=== PATIENT | female | born 1945 | race Caucasian/White ===

== ENCOUNTER 2022-12-16 08:38 | Outpatient (OUT) | payer MEDICARE, SELFPAY ==
[2022-12-16 09:37] LABS: INR 1.99; Prothrombin Time 20.3 sec (9.0-11.6)
[2023-01-15 07:46] LABS: INR 1.88; Prothrombin Time 19.2 sec (9.0-11.6)
== END 2022-12-16 08:39 ==
LOC: LAB 08:49
PROVIDERS: PCP Family Medicine; Visit Provider Family Medicine
DX: I48.0 Paroxysmal atrial fibrillation (principal); Z51.81 Encounter for therapeutic drug level monitoring; Z79.01 Long term (current) use of anticoagulants
CPT/HCPCS: 36415; 85610

== ENCOUNTER 2023-01-15 06:54 | Outpatient (OUT) | payer MEDICARE, SELFPAY ==
--- NOTE | 2023-01-15 07:09 | CT_ITS ---
[address] [address] Patient Name: KASEY SEN MRN: [id number] date: 1945 Sex: F Assigned Patient Location: LAB Current Patient Location: LAB Accession/Order Number: [id number] Exam Date: 01/15/2023 08:20 Report Date: 01/15/2023 10:14 At the request of: FAYE PEREZ Procedure: CT abdomen pelvis w con EXAMINATION: CT abdomen pelvis w con HISTORY: Lower Abdominal Pain R10.30, Nausea R11.0 , bordering COMPARISON: CT abdomen pelvis 09/21/2019 TECHNIQUE: Axial, Coronal, and Sagittal images were obtained without and/or with IV contrast as indicated by examination type. Dose reduction techniques were achieved by using automated exposure control and/or adjustment of mA and/or kV according to patient size and/or use of iterative reconstruction technique. FINDINGS: LUNG BASES: Surgical changes within right lung base. No acute infiltrates. LIVER: Fatty infiltration. No focal lesion. BILIARY: No dilatation or calcification. PANCREAS: No lesion, fluid collection, or abnormal duct dilatation. SPLEEN: No enlargement or focal lesion. ADRENALS: No mass or enlargement. KIDNEYS: 6 x 4 x 4 mm partially obstructing stone within mid right ureter with minimal hydronephrosis. 2 additional small nonobstructing stones within right kidney. Stable benign-appearing right renal cyst. Unremarkable left kidney and ureter. BOWEL/MESENTERY: Noninflamed diverticula involving distal descending and sigmoid colon. No visible mass, obstruction, or bowel wall thickening. AORTA/VASCULAR: No aneurysm or dissection. RETROPERITONEUM: No mass or adenopathy. LYMPH NODES: No adenopathy. URINARY BLADDER: No visible focal wall thickening, lesion, or calculus. PELVIC ORGANS: Hysterectomy. ABDOMINAL WALL: No mass or hernia. BONES: Marked degenerative disc disease L5-S1. No bony lesion or fracture. OTHER: Negative. IMPRESSION: 1.Partially obstructing 6 x 4 x 4 mm stone within mid right ureter. Additional nonobstructing right kidney stones. 2. Fatty infiltration of liver. 3.Sigmoid diverticulosis. Electronically authenticated by: MYRTLE KHOURY Date: 01/15/2023 10:14
[2023-01-15 07:18] LABS: Estimated GFR (African America >60 (>=60); Estimated GFR (Non-African Ame >60 (>=60)
[2023-01-15 09:55] LABS: Thyroid Stimulating Hormone 0.979 uIU/mL (0.358-3.740)
== END 2023-01-15 06:55 | disposition home or self-care (01) ==
LOC: LAB 06:54
PROVIDERS: PCP Family Medicine; Visit Provider Family Medicine
DX: R10.30 Lower abdominal pain, unspecified (principal); R11.0 Nausea; K57.30 Diverticulosis of large intestine without perforation or abscess without bleeding; R20.9 Unspecified disturbances of skin sensation; N18.31 Chronic kidney disease, stage 3a; I48.0 Paroxysmal atrial fibrillation; Z51.81 Encounter for therapeutic drug level monitoring; Z79.01 Long term (current) use of anticoagulants; N20.0 Calculus of kidney; N20.1 Calculus of ureter; K76.0 Fatty (change of) liver, not elsewhere classified
CPT/HCPCS: 36415; 74177; 82565; 84439; 84443; 85610; Q9967

== ENCOUNTER 2023-01-24 08:02 | Outpatient (OUT) | payer MEDICARE, SELFPAY ==
[2023-01-24 09:22] LABS: INR 2.21; Prothrombin Time 22.4 sec (9.0-11.6)
== END 2023-01-24 08:03 | disposition home or self-care (01) ==
LOC: LAB 08:05
PROVIDERS: PCP Family Medicine; Visit Provider Family Medicine
DX: I48.0 Paroxysmal atrial fibrillation (principal); Z51.81 Encounter for therapeutic drug level monitoring; Z79.01 Long term (current) use of anticoagulants
CPT/HCPCS: 36415; 85610

== ENCOUNTER 2023-01-31 12:47 | Outpatient (OUT) | payer MEDICARE, SELFPAY ==
--- NOTE | 2023-01-31 12:56 | XR_ITS ---
The [address] [address] Patient Name: KASEY SEN MRN: [id number] date: 1945 Sex: F Assigned Patient Location: [facility] Current Patient Location: [facility] Accession/Order Number: [id number] Exam Date: 01/31/2023 13:00 Report Date: 01/31/2023 13:23 At the request of: EUGENIA SHEPHERD Procedure: XR abdomen 1V EXAM: XR abdomen 1V HISTORY: Kidney stones N20.0 COMPARISON: None. TECHNIQUE: AP view of the abdomen. FINDINGS: Nonobstructive bowel gas pattern is noted. Punctate calculi in the right renal pelvis. Ureteral calculus is not visualized. The osseous structures are intact. XR/XR abdomen 1V IMPRESSION: Nonobstructive bowel gas pattern. Punctate right nephrolithiasis. Electronically authenticated by: VALENTE KENDRICK Date: 01/31/2023 13:23
== END 2023-01-31 12:48 | disposition home or self-care (01) ==
LOC: RAD 12:50
PROVIDERS: PCP Family Medicine; Visit Provider Urology
DX: N20.0 Calculus of kidney (principal)
CPT/HCPCS: 74018

== ENCOUNTER 2023-02-03 09:48 | Outpatient (OUT) | payer MEDICARE, SELFPAY ==
[2023-02-03 10:41] LABS: Estimated Average Glucose 154 mg/dL
== END 2023-02-03 09:49 | disposition home or self-care (01) ==
LOC: LAB 09:50
PROVIDERS: PCP Family Medicine; Visit Provider Family Medicine
DX: E11.22 Type 2 diabetes mellitus with diabetic chronic kidney disease (principal); N18.31 Chronic kidney disease, stage 3a; I48.0 Paroxysmal atrial fibrillation; Z79.01 Long term (current) use of anticoagulants; Z51.81 Encounter for therapeutic drug level monitoring
CPT/HCPCS: 36415; 83036

== ENCOUNTER 2023-02-11 08:58 | Outpatient (OUT) | payer MEDICARE, SELFPAY ==
--- NOTE | 2023-02-11 09:21 | XR_ITS ---
[address] [address] Patient Name: KASEY SEN MRN: [id number] date: 1945 Sex: F Assigned Patient Location: LAB Current Patient Location: LAB Accession/Order Number: [id number] Exam Date: 02/11/2023 09:35 Report Date: 02/11/2023 10:52 At the request of: EUGENIA SHEPHERD Procedure: XR IVP w KUB EXAMINATION: XR IVP w KUB HISTORY: Kidney Stones N20.0 COMPARISON: 01/15/2023 CT TECHNIQUE: After obtaining patient consent a flower arranger image was obtained followed by injection of 100cc of Omnipaque 300 IV contrast. Immediate nephrographic images were obtained. Corticomedullary and urographic phase images were obtained at 5, 10, 15 and 20 minutes. 15 minute oblique images were also obtained. FINDINGS: KIDNEY/URETER - RIGHT: No visible calcifications. KIDNEY/URETER - LEFT: No visible calcifications. PELVIS: No visible ureteral calcifications. Any visible calcifications favor phleboliths. NEPHROGRAPHIC PHASE: Normal, symmetric size, contour, and orientation. Normal and symmetric time of contrast uptake. CORTICOMEDULLARY: No mass. Moderate right hydroureteronephrosis UROGRAPHIC PHASE: Single bilateral ureters. Moderate right hydronephrosis extending to the inferior sacrum. Delayed washout of the right renal collecting system BLADDER: Normal size and contour. BOWEL: No abnormal dilation or deviation. BONES: No acute abnormality. Dextrocurvature with degenerative changes. OTHER: Negative. No abnormal gaseous collections. XR/XR IVP w KUB IMPRESSION: Moderate right hydroureteronephrosis extending to the inferior right sacrum. Previously identified distal ureterolith is not definitively seen on this exam Electronically authenticated by: BLANCA ZAVALA Date: 02/11/2023 10:52
[2023-02-11 09:22] LABS: Estimated GFR (African America >60 (>=60); Estimated GFR (Non-African Ame >60 (>=60)
== END 2023-02-11 08:59 | disposition home or self-care (01) ==
LOC: LAB 08:58
PROVIDERS: PCP Family Medicine; Visit Provider Urology
DX: N20.0 Calculus of kidney (principal)
CPT/HCPCS: 36415; 74400; 82565; 84520; Q9967

== ENCOUNTER 2023-02-18 10:51 | Outpatient (OUT) | payer MEDICARE, SELFPAY ==
[2023-02-18 11:33] LABS: INR 2.62; Prothrombin Time 26.3 sec (9.0-11.6)
== END 2023-02-18 10:52 | disposition home or self-care (01) ==
LOC: LAB 10:55
PROVIDERS: PCP Family Medicine; Visit Provider Family Medicine
DX: I48.0 Paroxysmal atrial fibrillation (principal); Z79.01 Long term (current) use of anticoagulants; Z51.81 Encounter for therapeutic drug level monitoring
CPT/HCPCS: 36415; 85610

== ENCOUNTER 2023-03-10 09:00 | Outpatient (OUT) | payer MEDICARE, SELFPAY ==
[2023-03-10 09:27] LABS: Basophils Absolute Auto 0.1 10^3/uL (0.0-0.1); Basophils Percent Auto 0.8 % (0.2-2.0); Eosinophils Absolute Auto 0.2 10^3/uL (0.0-0.7); Eosinophils Percent Auto 2.9 % (0.9-7.0); Hematocrit 38.9 % (36.0-48.0); Hemoglobin 12.5 g/dL (12.0-16.0); Immature Granulocytes Abs Auto 0.05 10^3/uL (0.00-0.03); Immature Granulocytes Pct Auto 0.8 % (0.0-0.5); Lymphocytes Absolute Auto 2.1 10^3/uL (1.2-3.8); Lymphocytes Percent Auto 31.5 % (20.5-60.0); Mean Corpuscular HGB Conc 32.1 g/dL (29.9-35.2); Mean Corpuscular Hemoglobin 30.8 pg (26.7-34.0); Mean Corpuscular Volume 95.8 fL (81.0-99.0); Mean Platelet Volume 8.9 fL (9.5-13.5); Monocytes Absolute Auto 0.4 10^3/uL (0.3-0.8); Monocytes Percent Auto 6.1 % (1.7-12.0); Neutrophils Absolute Auto 3.8 10^3/uL (1.4-6.5); Neutrophils Percent Auto 57.9 % (43.0-75.0); Platelet Count 264 10^3/uL (150-450); Red Blood Count 4.06 10^6/uL (4.20-5.40); White Blood Count 6.5 10^3/uL (4.0-11.0)
[2023-03-10 09:36] LABS: Alanine Aminotransferase 21 U/L (14-59); Albumin Globulin Ratio 1.2; Albumin Level 3.6 g/dL (3.4-5.0); Alkaline Phosphatase 51 U/L (46-116); Anion Gap 12.3; Aspartate Amino Transferase 11 U/L (15-37); BUN Creatinine Ratio 14.7; Bilirubin Total 0.3 mg/dL (0.2-1.0); Calcium 9.1 mg/dL (8.5-10.1); Carbon Dioxide 30.3 mmol/L (21.0-32.0); Chloride 104 mmol/L (98-107); Estimated GFR (African America >60 (>=60); Estimated GFR (Non-African Ame >60 (>=60); Globulin 3.1 g/dL; Glucose 135 mg/dL (74-106); Potassium 4.6 mmol/L (3.5-5.1); Sodium 142 mmol/L (136-145); Total Protein 6.7 g/dL (6.4-8.2)
[2023-03-10 10:09] LABS: Erythrocyte Sedimentation Rate 14 mm/hr (<=30)
== END 2023-03-10 09:01 | disposition home or self-care (01) ==
LOC: LAB 09:01
PROVIDERS: PCP Family Medicine; Visit Provider Internal Medicine Rheumatology
DX: L40.59 Other psoriatic arthropathy (principal); Z79.899 Other long term (current) drug therapy
CPT/HCPCS: 36415; 80053; 85025; 85652

== ENCOUNTER 2023-03-24 08:48 | Outpatient (OUT) | payer MEDICARE, SELFPAY ==
[2023-03-24 09:42] LABS: INR 2.22; Prothrombin Time 22.5 sec (9.0-11.6)
== END 2023-03-24 08:49 | disposition home or self-care (01) ==
LOC: LAB 08:50
PROVIDERS: PCP Family Medicine; Visit Provider Family Medicine
DX: I48.0 Paroxysmal atrial fibrillation (principal); Z79.01 Long term (current) use of anticoagulants; Z51.81 Encounter for therapeutic drug level monitoring
CPT/HCPCS: 36415; 85610

== ENCOUNTER 2023-04-22 11:02 | Outpatient (OUT) | payer MEDICARE, SELFPAY ==
[2023-04-22 11:45] LABS: INR 1.94; Prothrombin Time 19.8 sec (9.0-11.6)
== END 2023-04-22 11:03 | disposition home or self-care (01) ==
LOC: LAB 11:04
PROVIDERS: PCP Family Medicine; Visit Provider Family Medicine
DX: I48.0 Paroxysmal atrial fibrillation (principal); Z51.81 Encounter for therapeutic drug level monitoring; Z79.01 Long term (current) use of anticoagulants
CPT/HCPCS: 36415; 85610

== ENCOUNTER 2023-05-21 10:53 | Outpatient (OUT) | payer MEDICARE, SELFPAY ==
[2023-05-21 11:38] LABS: INR 2.35; Prothrombin Time 23.7 sec (9.0-11.6)
--- OUTSIDE RECORDS SUMMARY | 2023-07-01 13:54 | XMS_ITS | CCD ---
Author Name Unknown Address [address] [place] [address] Organization [facility] Care Team Providers Care Digital Campaign Specialist Name Role Phone Astrid Baker Unavailable CAYETANO, DR CRUM Consulting Unavailable MONTEIRO, DR CRUM Attending Unavailable MONTEIRO, DR CRUM Admitting Unavailable HEMEYER ., DR MCKINNEY Primary Care Unavailable HEMEYER ., DR MCKINNEY Consulting Unavailable HEMEYER ., DR MCKINNEY Admitting Unavailable HEMEYER ., DR MCKINNEY Attending Unavailable HEMEYER ., DR MCKINNEY Primary Care Unavailable MONTEIRO, DR CRUM Attending Unavailable CAYETANO, DR CRUM Admitting Unavailable HEMEYER ., DR MCKINNEY Primary Care Unavailable MONTEIRO, DR CRUM Consulting Unavailable HEMEYER ., DR MCKINNEY Primary Care Unavailable MONTEIRO, DR CRUM Consulting Unavailable CAYETANO, DR CRUM Attending Unavailable HEMEYER ., DR MCKINNEY Referring Unavailable MONTEIRO, DR CRUM Admitting Unavailable HEMEYER ., DR MCKINNEY Primary Care Unavailable HEMEYER ., DR MCKINNEY Consulting Unavailable HEMEYER ., DR MCKINNEY Attending Unavailable HEMEYER ., DR MCKINNEY Admitting Unavailable CAYETANO, DR CRUM Attending Unavailable CAYETANO, DR CRUM Admdiallo Unavailable WEST, DR BLANCA Haskins Consulting Unavailable HEMEYER ., DR MCKINNEY Primary Care Unavailable MONTEIRO, DR CRUM Consulting Unavailable CAYETANO, DR CRUM Consulting Unavailable CAYETANO, DR CRUM Attending Unavailable CAYETANO, DR CRUM Admitting Unavailable HEMEYER ., DR MCKINNEY Primary Care Unavailable MONTEIRO, DR CRUM Consulting Unavailable CAYETANO, DR CRUM Attending Unavailable MONTEIRO, DR CRUM Admitting Unavailable HEMEYER ., DR MCKINNEY Primary Care Unavailable HEMEYER ., DR MCKINNEY Consulting Unavailable HEMEYER ., DR MCKINNEY Attending Unavailable HEMEYER ., DR MCKINNEY Admitting Unavailable HEMEYER ., DR MCKINNEY Primary Care Unavailable HEMEYER ., DR MCKINNEY Consulting Unavailable HEMEYER ., DR MCKINNEY Attending Unavailable HEMEYER ., EDINA Primary Care Unavailable HEMEYER ., DR MCKINNEY Admitting Unavailable HEMEYER ., DR MCKINNEY Consulting Unavailable HEMEYER ., DR MCKINNEY Attending Unavailable HEMEYER ., EDINA Primary Care Unavailable HEMEYER ., DR MCKINNEY Admitting Unavailable HEMEYER ., DR MCKINNEY Consulting Unavailable HEMEYER ., DR MCKINNEY Admitting Unavailable HEMEYER ., DR MCKINNEY Attending Unavailable HEMEYER ., DR MCKINNEY Primary Care Unavailable HEMEYER ., DR MCKINNEY Consulting Unavailable HEMEYER ., DR MCKINNEY Admitting Unavailable HEMEYER ., DR MCKINNEY Attending Unavailable HEMEYER ., DR MCKINNEY Primary Care Unavailable HEMEYER, JAYME J Primary Care Physician Unavail able Williams SHEPHERD Attending Unavailable Williams SHEPHERD Attending Unavailable Williams SHEPHERD P Admitting Unavailable Williams SHEPHERD Attending Unavailable Williams SHEPHERD Attending Unavailable Williams SHEPHERD Attending Unavailable MD Jayme Perez Primary Care Provider MD Williams Shepherd Attending Provider [phone] Williams Shepherd Admitting Unavailable Williams Shepherd Attending Unavailable Jayme Perez Primary Care Unavailable Williams Shepherd Attending Unavailable Hemetomás, Jayme Hazel Primary Care Unavailable Vargas Shepherdory P Admitting Unavailable FELICIA THORNTON Attending Unavailable FELICIA THORNTON Attending Unavailable Allergies Allergy Classification Reported Allergen(s) Allergy Type Date of Onset Reaction(s) Facility (5 sources) Ciprofloxacin; 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: [ciprofloxacin] Drug Allergy 3 anaphylaxis, Unknown (qualifier value) [facility] (1 source) sulfaSALAzine Drug Allergy rash [place] [facility] Other (1 source) Ciprofloxacin Drug Allergy 3 [facility] (2 sources) Ketorolac; 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: [Toradol] Drug Allergy 3 [facility] (1 source) metroNIDAZOLE Drug Allergy 3 [facility] (1 source) NSAIDs Drug allergy (disorder) 3 [facility] (1 source) pioglitazone Drug Allergy 3 [facility] (1 source) Sulfonamides (Antibiotic) Drug allergy (disorder) 3 [facility] (6 sources) Ketorolac; 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: [ketorolac] Drug Allergy 3 Unknown (qualifier value), Nausea (finding) [facility] Comment on above: Severe (5 sources) Latex; 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: [Latex] Drug allergy 03-26-2023 Blister of skin AND/OR mucosa (finding) [facility] (3 sources) Non-steroidal anti-inflammatory agent; 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: [NSAIDs] Drug allergy Unknown (qualifier value) [facility] (4 sources) pioglitazone; 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: [pioglitazone] Drug Allergy 03-26-2023 Unknown (qualifier value) [facility] (3 sources) Sulfonamides (Antibiotic); 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: [sulfa drugs] Drug allergy Unknown (qualifier value) [facility] (2 sources) metroNIDAZOLE; 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: [metronidazole] Drug Allergy 03-26-2023 Redness of Skin [facility] (2 sources) Sulfonamides (Antibiotic); 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: [Sulfa (Sulfonamide Antibiotics)] Allergy to substance 03-26-2023 Rash [facility] (2 sources) NSAIDS (Non-Steroidal Anti-Inflamma; 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: [NSAIDS (Non-Steroidal Anti-Inflamma] Allergy to substance 03-26-2023 Anaphylaxis [facility] (1 source) Ciprofloxacin Drug Allergy 03-26-2023 [facility] (1 source) Ketorolac Drug Allergy 03-26-2023 [facility] (1 source) pioglitazone Drug Allergy 03-26-2023 [facility] Medications Current Medications Medication Drug Class(es) Dates Sig (Normalized) Sig (Original) acarbose 100 mg oral tablet (4 sources) alpha-Glucosidase Inhibitor Start: 03-26-2023 take 1 tablet by mouth three times daily Acarbose (Precose) 100 mg Tablet Active 100 MG PO Three times daily March 25, 2023 11:00pm Start: 08-17-2019 acarbose Oral, TID, Refills(s) 0 Start Date: 08/17/19 Status: Ordered acetaminophen 325 mg oral ta blet (3 sources) Start: 03-26-2023 Acetaminophen (Tylenol) 325 mg Tablet Active 1000 MG PO Twice daily March 25, 2023 11:00pm Start: 02-03-2023 take 1 mg by mouth e very six hours Tylenol Extra Strength 500 mg oral tablet mg tab(s), Oral, q6hr Start Date: 02/03/23 Status: Ordered [id number] 200 actuat albuterol 0.09 mg/actuat metered dose inhaler (1 source) beta2-Adrenergic Agonist Start: 05-21-2021 aspirin 81 mg oral tablet (2 sources) Platelet Aggregation Inhibitor, Nonsteroidal Anti-inflammatory Drug Start: 08-17-2019 take 1 mg by mouth once daily aspirin 81 mg oral tablet mg tab(s), Oral, Daily, Refills(s) 0 Start Date: 08/17/19 Status: Ordered azithromycin 250 mg oral tablet (1 source) Macrolide Antimicrobial Start: 05-21-2021 calcium citrate 950 mg oral tablet (3 sources) Start: 03-26-2023 take 200 mg by mouth three times daily Calcium Citrate Active 200 MG PO Three times daily March 25, 2023 11:00pm Start: 08-17-2019 calcium citrat e Oral, BID, Refills(s) 0 Start Date: 08/17/19 Status: Ordered cholecalciferol 0.125 mg oral tablet (1 source) Vitamin D Start: 03-26-2023 take 1 tablet by mouth once daily Cholecalciferol (Vitamin D3) (Vitamin D3) 125 mcg (5,000 unit) Tablet Active 5000 UNIT PO every day at noon March 25, 2023 11:00pm cinnamon bark 500 mg oral capsule (1 source) Start: 03-26-2023 take 1 capsule by mouth twice daily Cinnamon Bark (Cinnamon) 500 mg Capsule Active 1000 MG PO Twice daily March 25, 2023 11:00pm Cinnamon Preparation (2 sources) Non-Standardized Food Allergenic Extract Start: 09-19-2020 take 1 mg by mouth twice daily cinnamon mg, Oral, BID Start Date: 09/19/20 Status: Ordered Cyanocobalamin-Liver Extract (Vitamin [id number]) Tablet (1 source) Start: 03-26-2023 take 1 tablet by mouth once daily Cyanocobalamin-Liver Extract (Vitamin Y45-Qbare) Tablet Active 1 TAB PO every day at noon March 25, 2023 11:00pm esomeprazole 20 mg oral tablet (3 sources) Proton Pump Inhibitor Start: 03-26-2023 take 20 mg by mouth once daily Esomeprazole Magnesium Active 20 MG PO every day at noon March 25, 2023 11:00pm Start: 08-17-2019 Nexium Oral, D aily, Refills(s) 0 Start Date: 08/17/19 Status: Ordered ferrous sulfate 134 mg oral tablet (1 source) Start: 03-26-2023 take 30 mg by mouth once Ferrous Sulfate Active 30 MG PO every Friday, , Friday, and Saturday March 25, 2023 11:00pm 4 ml golimumab 12.5 mg/ml injection (3 sources) Tumor Necrosis Factor Sergey Start: 03-26-2023 Golimumab (Simponi Aria) 12.5 mg/mL Solution Active 12.5 MG IV EVERY 8 WEEKS March 25, 2023 11:00pm may 13 Start: 08-20-2019 Simponi Aria m g/kg, IV, q4wk, Refills(s) 0 Start Date: 08/20/19 Status: Ordered Insulin Glargine (1 source) Insulin Analog metFORMIN hydrochloride 1000 mg oral tablet (4 sources) Biguanide Start: 03-26-2023 take 1000 mg by mouth twice daily Metformin Active 1000 MG PO Twice daily March 25, 2023 11:00pm Start: 08-17-2019 metformin Oral , Refills(s) 0 Start Date: 08/17/19 Status: Ordered methotrexate 2.5 mg/ml oral solution (4 sources) Folate Analog Metabolic Inhibitor Start: 03-26-2023 take 1.5 mg by mouth every week Methotrexate Active 1.5 MG PO every week March 25, 2023 11:00pm Start: 08-17-2019 methotrexate R efills(s) 0 Start Date: 08/17/19 Status: Ordered Misc Medication (2 sources) Start: 09-19-2020 Misc Medicatio n ironchlate Start Date: 09/19/20 Status: Ordered Multi Vitamins oral tablet (2 sources) Start: 09-19-2020 Multi Vitamins oral tablet Oral, Daily, Refill(s) 0 Start Date: 09/19/20 Status: Ordered predniSONE 2.5 mg oral tablet (4 sources) Start: 03-26-2023 take 2.5 mg by mouth once daily at bedtime Prednisone Active 2.5 MG PO Daily at bedtime March 25, 2023 11:00pm Start: 08-17-2019 predniSONE Ora l, Daily, Refills(s) 0 Start Date: 08/17/19 Status: Ordered vitamin B12 (2 sources) Vitamin B12 Start: 08-17-2019 Vitamin B12 Refills(s) 0 Start Date: 08/17/19 Status: Ordered Vitamin D3 (2 sources) Start: 08-17-2019 Vitamin D3 Alexandra ly, Refills(s) 0 Start Date: 08/17/19 Status: Ordered warfarin sodium 4 mg oral tablet (3 sources) Vitamin K Antagonist Start: 03-26-2023 take 4 mg by mouth once daily at bedtime Warfarin Active 4 MG PO Daily at bedtime March 25, 2023 11:00pm Start: 02-03-2023 warfarin Oral, Daily Start Date: 02/03/23 Status: Ordered Zinc Sulfate-Vitamin C (Vitamin C Plus Zinc) 200-100 mg Tablet (1 source) Start: 03-26-2023 take 1 tablet by mouth once daily Zinc Sulfate-Vitamin C (Vitamin C Plus Zinc) 200-100 mg Tablet Active 1 TAB PO every day at noon March 25, 2023 11:00pm Problems Active Problems Problem Classification Problem Date Documented Da te Episodic/Chronic Abdominal pain (2 sources) Abdominal pain 09-21-2019 Episodic Anxiety disorders (2 sources) Anxiety 08-17-2019 Chronic Calculus of urinary tract (5 sources) Kidney stone; 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: [Calculus of kidney] Onset: 03-20-2023 Episodic Cancer of uterus (2 sources) History of malignant neoplasm of uterine body 08-17-2019 Episodic Cardiac dysrhythmias (5 sources) 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; 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: [PAROXYSMAL ATRIAL FIBRILLATION] Onset: 10-14-2022 Chronic Congestive heart failure; nonhypertensive (1 source) Chronic diastolic (congestive) heart failure; 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: [CHRONIC DIASTOLIC HEART FAILURE] Onset: 09-05-2022 Chronic Diabetes mellitus with complications (4 sources) Type 2 diabetes mellitus with diabetic chronic kidney disease; 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: [TYPE 2 DM W/DIABETIC CKD] Onset: 08-09-2022 Chronic Diabetes mellitus without complication (2 sources) Diabetes mellitus 08-17-2019 Chronic Genitourinary symptoms and ill-defined conditions (4 sources) Increased frequency of urination; 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: [Nocturia] 09-19-2020 Episodic Heart valve disorders (1 source) Nonrheumatic aortic (valve) stenosis; 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: [NONRHEUMATIC AORTIC VALVE STENOSIS] Onset: 09-05-2022 Chronic Heart valve disorders (3 sources) Cardiac murmur, unspecified; 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: [Heart murmur] Onset: 09-05-2022 08-17-2019 Episodic Mood disorders (2 sources) Depressive disorder 08-17-2019 Chronic Other aftercare (1 source) 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; 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: [[facility] CURRNT USE ANTICOAGULANTS] Onset: 12-11-2022 Episodic Other aftercare (5 sources) Encounter for therapeutic drug level monitoring; 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: [ENC THERAPEUTC DRUG LEVL MONITORING] Onset: 10-18-2022 Episodic Other aftercare (1 source) Other assisted (current) drug therapy; 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: [OTH CABLE ARMORER CURRENT DRUG THERAPY] Onset: 10-31-2022 Episodic Other and ill-defined heart disease (4 sources) Cardiomegaly; 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: [CARDIOMEGALY] Onset: 09-02-2022 Chronic Other inflammatory condition of skin (5 sources) Other psoriatic arthropathy; 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: [OTHER PSORIATIC ARTHROPATHY] Onset: 09-25-2022 Chronic Other nutritional; endocrine; and metabolic disorders (2 sources) Body mass index 25-29 - overweight 09-18-2021 Episodic Residual codes; unclassified (2 sources) H/O: anticoagulant therapy 09-21-2019 Episodic Screening and history of mental health and substance abuse codes (2 sources) Ex-smoker 09-21-2019 Episodic Unclassified (2 sources) Drug therapy finding 08-20-2019 Unclassified (1 source) Encounter for preprocedural laboratory examination; 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: [Encounter for preprocedural laboratory examination] Onset: 03-26-2023 Past or Other Problems Problem Classification Problem Date Documented Da te Episodic/Chronic Immunizations and screening for infectious disease (1 source) Contact with and (suspected) exposure to other viral communicable diseases Onset: 05-21-2021 Resolved: 05-21-2021 Episodic Other aftercare (1 source) [facility] (current) use of oral hypoglycemic drugs; 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: [[facility] USE ORAL HYPOGLYCEMIC DX] Onset: 08-12-2022 Episodic Other aftercare (1 source) 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; 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: [[facility] CURRENT USE OF INSULIN] Onset: 02-13-2022 Episodic Other connective tissue disease (4 sources) Pain in left foot; 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: [PAIN IN LEFT FOOT] Onset: 02-20-2022 Episodic Pneumonia (except that caused by tuberculosis or sexually transmitted disease) (1 source) Pneumonia, unspecified organism Onset: 05-21-2021 Resolved: 05-21-2021 Episodic Viral infection (1 source) COVID-19 Onset: 05-21-2021 Resolved: 05-21-2021 Results Test Name Value Interpretation Reference Range Facil ity Calculus Analysison 03-27-20 23 Calcium oxalate dihydrate Infrared spectroscopy (Stone) [Mass fraction] 100 % Invalid Interpretation Code [facility] Comment on above: Performed By: #### 1 [id number] #### [facility] [address] [place] [address] Color (Stone) Roper Invalid Interpretation Code [facility] Comment on above: Performed By: #### 1 [id number] #### [facility] [address] [place] [address] Composition Comment Invalid Interpretation Code [facility] Comment on above: Result Comment: Perc entage (Represents the % composition) Performed By: #### 1 [id number] #### [facility] [address] [place] [address] Disclaimer: Comment Invalid Interpretation Code [facility] Comment on above: Result Comment: This test was developed and its performance characteristics determined by [facility]. It has not been cleared or approved by the Food and Drug Administration. Performed at: [address] [id number] PhD Silvestre Esquivel Performed By: #### 1 [id number] #### [facility] [address] [place] [address] Laboratory comment Noam (Report) Comment Invalid Interpretation Code [facility] Comment on above: Result Comment: Coco goode questions regarding Calculi Analysis contact [facility] at: [phone]. Performed By: #### 1 [id number] #### [facility] [address] [place] [address] Please Note: Comment Invalid Interpretation Code [facility] Comment on above: Result Comment: Calc javier report will follow via computer, mail or metal leaf layer delivery. Performed By: #### 1 [id number] #### [facility] [address] [place] [address] Size (Stone) [Entitic vol] 6x4 Invalid Interpretati on Code [facility] Comment on above: Result Comment: Sing le piece received. Performed By: #### 1 [id number] #### [facility] [address] [id number] Specimen source subject Nom Comment Invalid Interpretation Code [facility] Comment on above: Result Comment: Not provided Performed By: #### 1 [id number] #### [facility] [address] [place] [address] Stone Photo Comment Invalid Interpretation Code [facility] Comment on above: Result Comment: Phot ograph will follow under a separate cover Performed By: #### 1 [id number] #### [facility] [address] [place] [address] Weight (Stone) 49 mg Invalid Interpretation Code [facility] Comment on above: Performed By: #### 1 [id number] #### [facility] [address] [place] [address] Lab Reportson 03-27-2023 Lab Reports [id number] :127 Normal [facility] Activated partial thrombopla stin time (aPTT) in platelet poor plasma by coagulation aOrdered By: Williams Shepherd on 03-26-2023 aPTT Coag (PPP) [Time] 35.9 s 25.1-36.5 [facility] Comment on above: A hematocrit value g reater than 55% may lead to inaccurate results in coagulation testing. Patients having hematocrit values >55% require a special collection tube for coagulation studies. Please contact the laboratory at [phone] for redraw instructions. Basic Metabolic Panelon 03-14 Anion gap [Moles/Vol] 13.0 mmol/L Normal 6.0-15.0 [facility] Comment on above: Performed By: #### P T, BMP, CBC, PTT #### [facility] [address] [id number] [facility] Calcium [Mass/Vol] 10.0 mg/dL Normal 8.6-10.3 [facility] Comment on above: Result Comment: PERF ORMED BY: [place] [address] PATHOLOGIST COIL REWIND MACHINE OPERATOR BERNIE GRAYSON M.D. Performed By: #### P T, BMP, CBC, PTT #### [facility] [address] [place] [address] [place] Chloride [Moles/Vol] 104 mmol/L Normal 98-107 [facility] Comment on above: Performed By: #### P T, BMP, CBC, PTT #### [facility] [address] [place] [address] [place] CO2 [Moles/Vol] 30.0 mmol/L Normal 21.0-31.0 [facility] Comment on above: Performed By: #### P T, BMP, CBC, PTT #### [facility] [address] [place] [address] [place] Creatinine [Mass/Vol] 0.85 mg/dL Normal 0.60-1.20 [facility] Comment on above: Performed By: #### P T, BMP, CBC, PTT #### [facility] [address] [place] [address] [place] GFR/1.73 sq M.predicted MDRD (S/P/Bld) [Vol rate/Area] mL/min/{1.73_m2} Normal [facility] Comment on above: Performed By: #### P T, BMP, CBC, PTT #### [facility] [address] [place] [address] [place] Glucose [Mass/Vol] 111 mg/dL High 70-100 [facility] Comment on above: Result Comment: [place] Glucose Reference Range is dependent on time and content of last meal. Glucose of more than 200 mg/dL in a nonstressed, ambulatory subject supports the diagnosis of Diabetes Mellitus. ADA recommended reference range Performed By: #### P T, BMP, CBC, PTT #### [facility] [address] Potassium [Moles/Vol] 5.0 mmol/L Normal 3.5-5.1 [facility] Comment on above: Performed By: #### P T, BMP, CBC, PTT #### [facility] [address] Sodium [Moles/Vol] 142 mmol/L Normal 136-145 [facility] Comment on above: Performed By: #### P T, BMP, CBC, PTT #### [facility] [address] Urea nitrogen [Mass/Vol] 12 mg/dL Normal 7-25 [facility] Comment on above: Performed By: #### P T, BMP, CBC, PTT #### [facility] [address] [place] [address] [place] Basophils Auto (Bld) [#/Vol] Ordered By: Williams Shepherd on 03-26-2023 Basophils (Bld) [#/Vol] 0.0 10*3/uL 0.0-0.2 [facility] Basophils/100 WBC Auto (Bld) Ordered By: Williams Shepherd on 03-26-2023 Basophils/100 WBC (Bld) 0.8 % . F [facility] Calcium [Mass/volume] in Ser um or PlasmaOrdered By: Williams Shepherd on 03-26-2023 Calcium [Mass/Vol] 10.0 mg/dL 8.6-10.3 [facility] Carbon dioxide, total [Moles /volume] in Serum or PlasmaOrdered By: Williams Shepherd on 03-26-2023 CO2 [Moles/Vol] 30.0 mmol/L 21.0-31.0 [facility] Chloride [Moles/volume] in S fartun or PlasmaOrdered By: Williams Shepherd on 03-26-2023 Chloride [Moles/Vol] 104 mmol/L 98-107 [facility] Complete Blood Count Auto Di ffon 03-26-2023 Basophils (Bld) [#/Vol] 0.0 10*3/uL Normal 0.0-0.2 [facility] Comment on above: Result Comment: PERF ORMED BY: [place] [address] PATHOLOGIST COIL REWIND MACHINE OPERATOR BERNIE GRAYSON M.D. Performed By: #### P T, BMP, CBC, PTT #### [facility] [address] Basophils/100 WBC (Bld) 0.8 % Normal . F [facility] Comment on above: Performed By: #### P T, BMP, CBC, PTT #### [facility] [address] [place] [address] Eosinophils (Bld) [#/Vol] 0.3 10*3/uL Normal 0.0-0.45 [facility] Comment on above: Performed By: #### P T, BMP, CBC, PTT #### [facility] [address] [place] [address] Eosinophils/100 WBC (Bld) 4.3 % Normal . [facility] Comment on above: Performed By: #### P T, BMP, CBC, PTT #### [facility] [address] [place] [address] Erythrocyte distribution wid th (RBC) [Ratio] 14.8 % Normal 11.9-15.3 [facility] Comment on above: Performed By: #### P T, BMP, CBC, PTT #### [facility] [address] [place] [address] Hematocrit (Bld) [Volume fraction] 40.3 % Normal 34.0-46.4 [facility] Comment on above: Performed By: #### P T, BMP, CBC, PTT #### [facility] [address] [place] [address] Hemoglobin (Bld) [Mass/Vol] 13.3 g/dL Normal 11.8-15. 4 [facility] Comment on above: Performed By: #### P T, BMP, CBC, PTT #### [address] Lymphocytes (Bld) [#/Vol] 2.2 10*3/uL Normal 1.00-4.8 [facility] Comment on above: Performed By: #### P T, BMP, CBC, PTT #### [address] Lymphocytes/100 WBC (Bld) 36.9 % Normal . [facility] Comment on above: Performed By: #### P T, BMP, CBC, PTT #### [address] MCH (RBC) [Entitic mass] 31.1 pg Normal 24.7-34.3 [facility] Comment on above: Performed By: #### P T, BMP, CBC, PTT #### [address] MCV (RBC) [Entitic vol] 94.4 fL Normal 80-100 [facility] Comment on above: Performed By: #### P T, BMP, CBC, PTT #### [address] Mean Corpuscular HGB Conc 32.9 g/dL Normal 32.0-35.0 [facility] Comment on above: Performed By: #### P T, BMP, CBC, PTT #### [address] Monocytes (Bld) [#/Vol] 0.5 10*3/uL Normal 0.0-0.8 [facility] Comment on above: Performed By: #### P T, BMP, CBC, PTT #### [address] Monocytes/100 WBC (Bld) 7.8 % Normal . F [facility] Comment on above: Performed By: #### P T, BMP, CBC, PTT #### [address] Neutrophils (Bld) [#/Vol] 3.0 10*3/uL Normal 1.8-7.7 [facility] Comment on above: Performed By: #### P T, BMP, CBC, PTT #### [facility] [address] Neutrophils/100 WBC (Bld) 50.2 % Normal . [facility] Comment on above: Performed By: #### P T, BMP, CBC, PTT #### [facility] [address] NRBC% 0.3 /100{WBC} Normal 0-0.5 [facility] Comment on above: Performed By: #### P T, BMP, CBC, PTT #### [address] Platelet mean volume (Bld) [Entitic vol] 7.1 fL Normal 6.3-10.7 [facility] Comment on above: Performed By: #### P T, BMP, CBC, PTT #### [address] Platelets (Bld) [#/Vol] 363 10*3/uL Normal 150-450 [facility] Comment on above: Performed By: #### P T, BMP, CBC, PTT #### [address] RBC (Bld) [#/Vol] 4.27 10*6/uL Normal 3.60-5.00 [facility] Comment on above: Performed By: #### P T, BMP, CBC, PTT #### [address] WBC (Bld) [#/Vol] 5.9 10*3/uL Normal 3.8-11.6 [facility] Comment on above: Performed By: #### P T, BMP, CBC, PTT #### [address] Creatinine [Mass/volume] in Serum or PlasmaOrdered By: Williams Shepherd on 03-26-2023 Creatinine [Mass/Vol] 0.85 mg/dL 0.60-1.20 [facility] ECG 12 lead ECGon 03-26-2023 ECG 12 lead ECG [facility] [address] [place] [id number] Electrocardiograph Report Signed Patient: Wilda Sen MR#: [id number] 8 : 1945 Acct:[id number] Age/Sex: 77 / F ADM Date: 03/26/23 Loc: Room: Type: [facility] Attending Dr: Williams Shepherd MD Ordering Provider: Williams Shepherd MD Date of Service: 03/26/23 ECG/ECG 12 lead ECG: PST Copies to: Test Reason : Blood Pressure : / mmHG Vent. Rate : 082 BPM Atrial Rate : 082 BPM P-R Int : 148 ms QRS Dur : 068 ms QT Int : 344 ms P-R-T Axes : 037 -34 056 degrees QTc Int : 401 ms Normal sinus rhythm with occasional ectopic atrial beats Left axis deviation Abnormal ECG No previous ECGs available Confirmed by MARU WHITEHEAD DO ([id number]) on 03/26/2023 7:07:56 PM Referred By: CORA Electronically Signed By:MARU WHITEHEAD DO Transcribed By: CHAD Signed By Maru Whitehead DO 03/26 190 Normal [facility] Eosinophils Auto (Bld) [#/Vo l]Ordered By: Williams Shepherd on 03-26-2023 Eosinophils (Bld) [#/Vol] 0.3 10*3/uL 0.0-0.45 [facility] Eosinophils/100 WBC Auto (Bl d)Ordered By: Williams Shepherd on 03-26-2023 Eosinophils/100 WBC (Bld) 4.3 % . [facility] Erythrocyte distribution wid th Auto (RBC) [Ratio]Ordered By: Williams Shepherd on 03-26-2023 Erythrocyte distribution wid th (RBC) [Ratio] 14.8 % 11.9-15.3 [facility] Glucose [Mass/volume] in Ser um or PlasmaOrdered By: Williams Shepherd on 03-26-2023 Glucose [Mass/Vol] 111 mg/dL 70-100 [facility] Comment on above: ADA recommended refe rence rangeRandom Glucose Reference Range is dependent on time and content of last meal. Glucose of more than 200 mg/dL in a nonstressed, ambulatory subject supports the diagnosis of Diabetes Mellitus. Hematocrit Auto (Bld) [Volum e fraction]Ordered By: Williams Shepherd on 03-26-2023 Hematocrit (Bld) [Volume fraction] 40.3 % 3 4.0-46.4 [facility] Hemoglobin [Mass/volume] in BloodOrdered By: Williams Shepherd on 03-26-2023 Hemoglobin (Bld) [Mass/Vol] 13.3 g/dL 11.8-15. 4 [facility] INR in Platelet poor plasma by Coagulation assayOrdered By: Williams Shepherd on 03-26-2023 INR Coag (PPP) [Relative time] 2.3 {INR} [facility] Comment on above: INR Therapeutic Rang e A) Pre- and Peroperative OAT started two weeks before surgery. NOT HIP SURGERY: 1.5 - 2.5 HIP SURGERY: 2 - 3B) Primary and secondary prevention of venous THROMBOSIS: 2 - 3C) Active venous thrombosis, pulmonary embolismand prevention of recurrent venous thrombosis: 2 - 3D) Prevention of arterial thromboembolismincluding patients with mechanical heart valves: 3 - 4.5 Leukocytes [#/volume] correc she for nucleated erythrocytes in Blood by Automated counOrdered By: Williams Shepherd on 03-26-2023 WBC corrected for nucl RBC A uto (Bld) [#/Vol] 5.9 10*3/uL 3.8-11.6 [facility] Lymphocytes Auto (Bld) [#/Vo l]Ordered By: Williams Shepherd on 03-26-2023 Lymphocytes (Bld) [#/Vol] 2.2 10*3/uL 1.00-4.8 [facility] Lymphocytes/100 WBC Auto (Bl d)Ordered By: Williams Shepherd on 03-26-2023 Lymphocytes/100 WBC (Bld) 36.9 % . [facility] MCH Auto (RBC) [Entitic mass ]Ordered By: Williams Shepherd on 03-26-2023 MCH (RBC) [Entitic mass] 31.1 pg 24.7-34.3 [facility] MCHC Auto (RBC) [Mass/Vol]Or dered By: Williams Shepherd on 03-26-2023 MCHC (RBC) [Mass/Vol] 32.9 g/dL 32.0-35.0 [facility] MCV Auto (RBC) [Entitic vol] Ordered By: Williams Shepherd on 03-26-2023 MCV (RBC) [Entitic vol] 94.4 fL 80-100 [facility] Monocytes Auto (Bld) [#/Vol] Ordered By: Williams Shepherd on 03-26-2023 Monocytes (Bld) [#/Vol] 0.5 10*3/uL 0.0-0.8 [facility] Monocytes/100 WBC Auto (Bld) Ordered By: Williams Shepherd on 03-26-2023 Monocytes/100 WBC (Bld) 7.8 % . F [facility] Neutrophils Auto (Bld) [#/Vo l]Ordered By: Williams Shepherd on 03-26-2023 Neutrophils (Bld) [#/Vol] 3.0 10*3/uL 1.8-7.7 [facility] Neutrophils/100 WBC Auto (Bl d)Ordered By: Williams Shepherd on 03-26-2023 Neutrophils/100 WBC (Bld) 50.2 % . [facility] No Panel InformationOrdered By: Williams Shepherd on 03-26-2023 Estimated GFR (CKD-EPI) > 60.0 mL/Min [facility] Creatinine Clearanc e (Chem N/A [facility] Nucleated erythrocytes [Pres ence] in Blood by Automated countOrdered By: Williams Shepherd on 03-26-2023 Nucleated RBC Auto Ql (Bld) 0.3 /100{WBC} 0-0.5 [facility] Partial Thromboplastin Timeo n 03-26-2023 aPTT Coag (Bld) [Time] 35.9 s Normal 25.1-36.5 [facility] Comment on above: Result Comment: A he matocrit value greater than 55% may lead to inaccurate results in coagulation testing. Patients having hematocrit values >55% require a special collection tube for coagulation studies. Please contact the laboratory at [phone] for redraw instructions. PERFORMED BY: [place] [id number] PATHOLOGIST COIL REWIND MACHINE OPERATOR BERNIE GRAYSON M.D. Performed By: #### P T, BMP, CBC, PTT #### [facility] [address] Platelet mean volume Auto (B ld) [Entitic vol]Ordered By: Williams Shepherd on 03-26-2023 Platelet mean volume (Bld) [Entitic vol] 7.1 fL 6.3-10.7 [facility] Platelets Auto (Bld) [#/Vol] Ordered By: Williams Shepherd on 03-26-2023 Platelets (Bld) [#/Vol] 363 10*3/uL 150-450 [facility] Potassium [Moles/volume] in Serum or PlasmaOrdered By: Williams Shepherd on 03-26-2023 Potassium [Moles/Vol] 5.0 mmol/L 3.5-5.1 [facility] Prothrombin Time INRon 03-26 INR Coag (PPP) [Relative time] 2.3 {INR} Normal [facility] Comment on above: Result Comment: INR Therapeutic Range A) Pre- and Peroperative OAT started two weeks before surgery. NOT HIP SURGERY: 1.5 - 2.5 HIP SURGERY: 2 - 3 B) Primary and secondary prevention of venous THROMBOSIS: 2 - 3 C) Active venous thrombosis, pulmonary embolism and prevention of recurrent venous thrombosis: 2 - 3 D) Prevention of arterial thromboembolism including patients with mechanical heart valves: 3 - 4.5 Performed By: #### P T, BMP, CBC, PTT #### [facility] [address] [place], [place] [id number] [facility] PT Coag (PPP) [Time] 26.6 s High 9.0-12.9 [facility] Comment on above: Result Comment: A he matocrit value greater than 55% may lead to inaccurate results in coagulation testing. Patients having hematocrit values >55% require a special collection tube for coagulation studies. Please contact the laboratory at [phone] for redraw instructions. Performed By: #### P T, BMP, CBC, PTT #### [facility] [address] [place], [place] [id number] [facility] Prothrombin time (PT)Ordered By: Williams Shepherd on 03-26-2023 PT Coag (PPP) [Time] 26.6 s 9.0-12.9 [facility] Comment on above: A hematocrit value g reater than 55% may lead to inaccurate results in coagulation testing. Patients having hematocrit values >55% require a special collection tube for coagulation studies. Please contact the laboratory at [phone] for redraw instructions. RBC Auto (Bld) [#/Vol]Ordere d By: Williams Shepherd on 03-26-2023 RBC (Bld) [#/Vol] 4.27 10*6/uL 3.60-5.00 [facility] Serum or plasma anion gap de terminationOrdered By: Williams Shepherd on 03-26-2023 Anion gap [Moles/Vol] 13.0 mmol/L 6.0-15.0 [facility] Sodium [Moles/volume] in Ser um or PlasmaOrdered By: Williams Shepherd on 03-26-2023 Sodium [Moles/Vol] 142 mmol/L 136-145 [facility] Urea nitrogen [Mass/volume] in Serum or PlasmaOrdered By: Williams Shepherd on 03-26-2023 Urea nitrogen [Mass/Vol] 12 mg/dL 7-25 [facility] WBC Auto (Bld) [#/Vol]Ordere d By: Williams Shepherd on 03-26-2023 WBC (Bld) [#/Vol] 5.9 10*3/uL 3.8-11.6 [facility] Consultation Noteon 03-17-20 Consultation Note [id number]:127 Normal [facility] Lab Reportson 02-12-2023 Lab Reports [id number] D:127 [facility] RAD - MISCon 02-12-2023 RAD - MISC [id number] :127 Normal [facility] RAD - CT Reporton 02-05-2023 RAD - CT Report [id number]:127 Normal [facility] RAD - MISCon 02-05-2023 RAD - MISC [id number] :127 Normal [facility] Ambulatory Visit Summaryon 0 02-03-2023 Ambulatory Visit Summary WILDA SEN :1945 Visit Date:02/03/2023 Ambulatory Visit Instructions Your Diagnosis Kidney stones Tests Performed XR Abdomen 1 View -- Results Pending -- Please visit your patient portal for your results or contact your primary care physician. Your Care Team Attending Physician - CORA AGUIAR, Williams Venegas Primary Care Physician - CHRIS AGUIAR, JAYME Hazel This Is Your Medications List Contact prescribing physician if questions or concerns Non-Formulary Medication (Misc Medication) acarbose acetaminophen (Tylenol Extra Strength 500 mg oral tablet) aspirin (aspirin 81 mg oral tablet) calcium citrate cholecalciferol (Vitamin D3) cinnamon cyanocobalamin (Vitamin B12) esomeprazole (Nexium) golimumab (Simponi Aria) metformin methotrexate multivitamin (Multi Vitamins oral tablet) predniSONE warfarin Procedures Performed ESWL - Extracorporeal shockwave lithotripsy for renal calculus (08/26/2019), Cystoscopic laser lithotripsy of ureteric calculus (04/12/2016), Cystoscopic removal of ureteric stent (03/28/2016), ESWL of kidney (02/15/2016), Endoscopic retrograde pyelogram (01/16/2016), ESWL of kidney (06/29/2013), Cystoscopic removal of ureteric stent (09/10/2010), ESWL of kidney (08/29/2010), Cystoscopic insertion of ureteric stent (08/23/2010), Endoscopic retrograde pyelogram (03/02/2008), Cystoscopic ureteroneocystostomy with insertion of ureteral stent (10/16/2004). Discharge Vitals Heart Rate (Peripheral) 80 Blood Pressure 115/56 Height 160 cm Height 63 in Weight 70.0 kg Weight 154 lb BMI 27.34 What to do next Scheduled Follow-Up Appointments Friday 10:45 AM EST With: CORA AGUIAR, Williams Venegas Where: [facility] Patient Educationon 02-04-20 Patient Education Urology Kidney Stones Kidney stones are solid, rock-like deposits that form inside of the kidneys. The kidneys are a pair of organs that make urine. A kidney stone may form in a kidney and move into other parts of the urinary tract, including the tubes that connect the kidneys to the bladder (ureters), the bladder, and the tube that carries urine out of the body (urethra). As the stone moves through these areas, it can cause intense pain and block the flow of urine. Kidney stones are created when high levels of certain minerals are found in the urine. The stones are usually passed out of the body through urination, but in some cases, medical treatment may be needed to remove them. What are the causes? Kidney stones may be caused by: ? A condition in which certain glands produce too much parathyroid hormone (primary hyperparathyroidism), which causes too much calcium buildup in the blood. ? A buildup of uric acid crystals in the bladder (hyperuricosuria). Uric acid is a chemical that the body produces when you eat certain foods. It usually exits the body in the urine. ? Narrowing (stricture) of one or both of the ureters. ? A kidney blockage that is present at (congenital obstruction). ? Past surgery on the kidney or the ureters, such as gastric bypass surgery. What increases the risk? The following factors may make you more likely to develop this condition: ? Having had a kidney stone in the past. ? Having a family history of kidney stones. ? Not drinking enough water. ? Eating a diet that is high in protein, salt (sodium), or sugar. ? Being overweight or obese. What are the signs or symptoms? Symptoms of a kidney stone may include: ? Pain in the side of the abdomen, right below the ribs (flank pain). Pain usually spreads (radiates) to the groin. ? Needing to urinate frequently or urgently. ? Painful urination. ? Blood in the urine (hematuria). ? Nausea. ? Vomiting. ? Fever and chills. How is this diagnosed? This condition may be diagnosed based on: ? Your symptoms and medical history. ? A physical exam. ? Blood tests. ? Urine tests. These may be done before and after the stone passes out of your body through urination. ? Imaging tests, such as a CT scan, abdominal X-ray, or ultrasound. ? A procedure to examine the inside of the bladder (cystoscopy). How is this treated? Treatment for kidney stones depends on the size, location, and makeup of the stones. Kidney stones will often pass out of the body through urination. You may need to: ? Increase your fluid intake to help pass the stone. In some cases, you may be given fluids through an IV and may need to be monitored at the hospital. ? Take medicine for pain. ? Make changes in your diet to help prevent kidney stones from coming back. Sometimes, medical procedures are needed to remove a kidney stone. This may involve: ? A procedure to break up kidney stones using: ? A focused beam of light (laser therapy). ? Shock waves (extracorporeal shock wave lithotripsy). ? Surgery to remove kidney stones. This may be needed if you have severe pain or have stones that block your urinary tract. Follow these instructions at home: Medicines ? Take [id number] and prescription medicines only as told by your health care provider. ? Ask your health care provider if the medicine prescribed to you requires you to avoid driving or using heavy machinery. Eating and drinking ? Drink enough fluid to keep your urine pale yellow. You may be instructed to drink at least 8?10 glasses of water each day. This will help you pass the kidney stone. ? If directed, change your diet. This may include: ? Limiting how much sodium you eat. ? Eating more fruits and vegetables. ? Limiting how much animal protein?such as red meat, poultry, fish, and eggs?you eat. ? Follow instructions from your health care provider about eating or drinking restrictions. General instructions ? Collect urine samples as told by your health care provider. You may need to collect a urine sample: ? 24 hours after you pass the stone. ? 8?12 weeks after passing the kidney stone, and every 6?12 months after that. ? Strain your urine every time you urinate, for as long as directed. Use the strainer that your health care provider recommends. ? Do not throw out the kidney stone after passing it. Keep the stone so it can be tested by your health care provider. Testing the makeup of your kidney stone may help prevent you from getting kidney stones in the future. ? Keep all follow-up visits as told by your health care provider. This is important. You may need follow-up X-rays or ultrasounds to make sure that your stone has passed. How is this prevented? To prevent another kidney stone: ? Drink enough fluid to keep your urine pale yellow. This is the best way to prevent kidney stones. ? Eat a healthy diet and follow (more content not included)... Normal [facility] Urology Office/Clinic Noteon 02-03-2023 Urology Office/Clinic Note Chief Complai nt 16 month follow up w/ CT scan HPI Staff Pt is here today for 16 month follow up w/ CT scan done @[facility] on 01/15/23. CT scan shows partially obstructing 6 x 4 x 4 mm stone within mid right ureter. Additional nonobstructing right kidney stones. Previous DX: abdominal pain, frequent urination, history of uterine cancer, kidney stones, nocturia. S/P ESWL done 08/26/19. Cysto/laser lithotripsy done 04/12/16. Pt unable to give urine sample today. Dysuria: denies pain and burning Incomplete bladder emptying: denies Hematuria: last seen blood last week on Friday and Friday Frequency: 6-7x a day due to water intake Urgency: denies Nocturia: 2x a night sometimes 3x due to water intake Stream: denies hesitancy, good stream Leaking: denies Post void dripping: denies Wearing pads/ Depends: denies Urge incontinence: denies Stress incontinence: sometimes Incontinence without Sensory Awareness: denies Abdominal pain: denies Flank pain: denies History of Present Illness Tests reviewed: reviewed UA and CT I have reviewed the previous health record information and history for this patient from . I have reviewed and verified the staff HPI to be accurate for this encounter. There have been no associated fever, chills, flank pain, or blood in the urine. Denies any urinary infections since last encounter. Review of Systems PHQ Score Initial Depression Screen Score: 0 ROS - Provider Constitutional: denies weight loss, denies hot flashes. Eyes: denies eye problems. Gastrointestinal: denies nausea, denies vomiting. Cardiovascular: denies chest pain or angina. Integumentary: no dryness Musculoskeletal: denies musculoskeletal symptoms. ENMT: denies otolaryngeal symptoms. Respiratory: no shortness of breath. Heme/Lymph: denies easy bleeding tendency, denies easy bruising tendency. Psychiatric: no confusion, no anxiety. Genitourinary: See HPI. Physical Exam Vitals & Measurements HR: 80(Peripheral) BP: 115/56 HT: 63 in HT: 160 cm WT: 70.0 kg WT: 154 lb BMI: 27.34 General Appearance: alert , no acute distress, well nourished, well developed female. Assessment/Plan Pt unable to give urine sample today. 1. Kidney stones (N20.0: Calculus of kidney) Cysto/laser lithotripsy done 04/12/16 S/P ESWL done 08/26/19 Previous KUB showed possible punctate Rt Kidney Stone. Pt had a visit with her PCP due to flank pain, PCP ordered a CT. CT AP w/ Con 01/15/23 - 6 mm Rt mid stone w/ minimal hydro, and 2 small stones in the Rt kidney. Continued ongoing obstruction of the right kidney could be detrimental to the kidney itself and can lead to decreased kidney function with long-term obstruction. Pt states the last time she had pain was a week ago. Discussed that she may be able to pass the stone on her own. Discussed having a IVP or repeat imaging. Discussed having a kidney function test done before the IVP. Will send order for kidney function test and IVP. Follow up in 18 mos w/ KUB. All questions/concerns were discussed. Pt to call the office if she encounters any issues prior. Pt acknowledges understanding. Overall this patient had the CT scan ordered by her primary care physician on January 15. She did have some moderate pain about 1 week ago but has none since. The stone was located in the right mid ureter, measuring about [address] scan. Reviewed current KUB. Viewed urinalysis. Ordered intravenous pyelogram, ordered BUN and creatinine. Hopefully this will delineate whether or not she has passed the stone as it is unclear on the current KUB. She has multiple pelvic phleboliths making interpretation difficult. She does have small stones which seems stable in the right kidney. She agrees with the plan. Depending on IVP findings, may have to recommend operative intervention if she has failed to pass the stone. She agrees with the plan Follow-up With When Contact Information Williams SHEPHERD MD, URL [address] [place] [address]- Additional Instructions: Patient Education Kidney Stones I, Fanny Bowen, personally scribed for Dr. Shepherd on 02/03/2023 12:04:03. . Documentation recorded by the scribe, Fanny Bowen, accurately reflects the services(s) I performed and decisions made by me. Authenticated by Dr. Shepherd on 02/03/2023 12:37:35. Portions of this record may have been created with voice recognition artificial intelligence software, specifically [employer] and or SET. Substitutions may have occurred due to the inherent limitations of voice recognition and artificial intelligence software. 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 Normal [facility] Comment on above: Result Comment: Elec tronically Signed By: Williams SHEPHERD MD\.br\Date and Time Signed: 02/03/23 12:39 EDT\.br\Electronically Co-Signed By: Fanny Bowen\.br\Date and Time Co-Signed: 02/03/23 12:04 EDT PROTIMEon 12-02-2022 INR Coag (PPP) [Relative time] 3.62 {INR} Normal [facility] Comment on above: Performed By: #### P T #### [facility] [address] [address] [address] Tg Fierro INR GUIDELINES SEE BELOW Normal [facility] Comment on above: Result Comment: LAURENCE RED INR: 2.0 - 3.0 CONDITIONS NOT LISTED BELOW 2.5 - 3.5 FOR PROSTHETIC HEART VALVE REPLACEMENT 2.5 - 3.5 RECURRENT THROMBOSIS Performed By: #### P T #### [facility] [address] [address] [address] Tg Fierro PT Coag (PPP) [Time] 35.7 s Critically high 9.0-11.6 [facility] Comment on above: Performed By: #### P T #### [facility] [address] [place] [address] Dr. Tg Fierro PROTIMEon 11-11-2022 INR Coag (PPP) [Relative time] 1.90 {INR} Normal [facility] Comment on above: Performed By: #### P T #### [facility] [address] [place] [address] Dr. Tg Fierro INR GUIDELINES SEE BELOW Normal [facility] Comment on above: Result Comment: LAURENCE RED INR: 2.0 - 3.0 CONDITIONS NOT LISTED BELOW 2.5 - 3.5 FOR PROSTHETIC HEART VALVE REPLACEMENT 2.5 - 3.5 RECURRENT THROMBOSIS Performed By: #### P T #### [facility] [address] [place] [address] Dr. Tg Fierro PT Coag (PPP) [Time] 19.4 s Critically high 9.0-11.6 [facility] Comment on above: Performed By: #### P T #### [facility] [address] [place] [address] Dr. Tg Fierro CBC AUTO DIFFon 10-25-2022 BASO # 0.0 103/ul Normal 0.0-0.1 [facility] Comment on above: Performed By: #### P T #### [facility] [address] [place] [address] Dr. Tg Fierro Basophils/100 WBC (Bld) 0.5 % Normal 0.2-2.0 [facility] Comment on above: Performed By: #### P T #### [facility] [address] [place] [address] Dr. Tg Fierro EO # 0.2 103/ul Normal 0.0-0.7 [facility] Comment on above: Performed By: #### P T #### [facility] [address] [place] [address] Dr. Tg Fierro Eosinophils/100 WBC (Bld) 2.7 % Normal 0.9-7.0 [facility] Comment on above: Performed By: #### P T #### [facility] [address] [place] [address] Dr. Tg Fierro Erythrocyte distribution wid th (RBC) [Ratio] 13.4 % Normal 11.0-15.0 [facility] Comment on above: Performed By: #### P T #### [facility] [address] [place] [address] Dr. Tg Fierro Hematocrit (Bld) [Volume fraction] 40.7 % Normal 3 6.0-48.0 [facility] Comment on above: Performed By: #### P T #### [facility] [address] [place] [address] Dr. Tg Fierro Hemoglobin (Bld) [Mass/Vol] 13.2 g/dL Normal 12.0-16. 0 [facility] Comment on above: Performed By: #### P T #### [facility] [address] [place] [address] Dr. Tg Fierro IG # 0.03 10e3/ul Normal 0.00-0.03 [facility] Comment on above: Performed By: #### P T #### [facility] [address] [place] [address] Dr. Tg Fierro IG % 0.5 % Normal 0.0-0.5 [facility] Comment on above: Performed By: #### P T #### [facility] [address] [place] [address] Dr. Tg Fierro LYMPH # 2.1 103/ul Normal 1.2-3.8 [facility] Comment on above: Performed By: #### P T #### [facility] [address] [place] [address] Dr. Tg Fierro Lymphocytes/100 WBC (Bld) 34.9 % Normal 20.5-60.0 [facility] Comment on above: Performed By: #### P T #### [facility] [address] [place] [address] Dr. Tg Fierro MANUAL DIFF REQ NO Normal [facility] Comment on above: Performed By: #### P T #### [facility] [address] [address] [address] Tg Fierro MCH (RBC) [Entitic mass] 30.5 pg Normal 26.7-34.0 [facility] Comment on above: Performed By: #### P T #### [facility] [address] [place] [address] Dr. Tg Fierro MCHC (RBC) [Mass/Vol] 32.4 g/dL Normal 29.9-35.2 [facility] Comment on above: Performed By: #### P T #### [facility] [address] [place] [address] Dr. Tg Fierro MCV (RBC) [Entitic vol] 94.0 fL Normal 81.0-99.0 [facility] Comment on above: Performed By: #### P T #### [facility] [address] [place] [address] Dr. Tg Fierro MONO # 0.4 103/ul Normal 0.3-0.8 [facility] Comment on above: Performed By: #### P T #### [facility] [address] [place] [address] Dr. Tg Fierro Monocytes/100 WBC (Bld) 7.1 % Normal 1.7-12.0 [facility] Comment on above: Performed By: #### P T #### [facility] [address] [place] [address] Dr. Tg Fierro NEUT # 3.2 103/ul Normal 1.4-6.5 [facility] Comment on above: Performed By: #### P T #### [facility] [address] [place] [address] Dr. Tg Fierro Neutrophils/100 WBC (Bld) 54.3 % Normal 43.0-75.0 [facility] Comment on above: Performed By: #### P T #### [facility] [address] [place] [address] Dr. Tg Fierro Platelet mean volume (Bld) [Entitic vol] 8.7 fL Critically low 9.5-13.5 [facility] Comment on above: Performed By: #### P T #### [facility] [address] [place] [address] Dr. Tg Fierro PLT 295 103/ul Normal 150-450 [facility] Comment on above: Performed By: #### P T #### [facility] [address] [place] [address] Dr. Tg Fierro RBC 4.33 106/ul Normal 4.20-5.40 [facility] Comment on above: Performed By: #### P T #### [facility] [address] [place] [address] Dr. Tg Fierro WBC 5.9 103/ul Normal 4.0-11.0 [facility] Comment on above: Performed By: #### P T #### [facility] [address] [place] [address] Dr. Tg Fierro PROF 14(COMP METB)on 023 Albumin [Mass/Vol] 3.8 g/dL Normal 3.4-5.0 [facility] Comment on above: Performed By: #### C MP #### [facility] [address] [place] [address] Dr. Tg Fierro Albumin/Globulin [Mass ratio] 1.2 {ratio} Normal [facility] Comment on above: Performed By: #### C MP #### [facility] [address] [place] [address] Dr. Tg Fierro ALP [Catalytic activity/Vol] 49 U/L Normal 46-116 [facility] Comment on above: Performed By: #### C MP #### [facility] [address] [place] [address] Dr. Tg Fierro ALT [Catalytic activity/Vol] 21 U/L Normal 14-59 [facility] Comment on above: Performed By: #### C MP #### [facility] [address] [place] [address] Dr. Tg Fierro Anion gap [Moles/Vol] 13.3 mmol/L Normal [facility] Comment on above: Performed By: #### C MP #### [facility] [address] [address] [address] Tg Fierro AST [Catalytic activity/Vol] 14 U/L Critically low 15- 37 [facility] Comment on above: Performed By: #### C MP #### [facility] [address] [address] [address] Tg Fierro Bilirubin [Mass/Vol] 0.5 mg/dL Normal 0.2-1.0 [facility] Comment on above: Performed By: #### C MP #### [facility] [address] [address] [address] Tg Fierro Calcium [Mass/Vol] 9.5 mg/dL Normal 8.5-10.1 [facility] Comment on above: Performed By: #### C MP #### [facility] [address] [address] [address] Tg Fierro Chloride [Moles/Vol] 104 mmol/L Normal 98-107 [facility] Comment on above: Performed By: #### C MP #### [facility] [address] [address] [address] Tg Fierro CO2 [Moles/Vol] 29.3 mmol/L Normal 21.0-32.0 [facility] Comment on above: Performed By: #### C MP #### [facility] [address] [address] [address] Tg Fierro Creatinine [Mass/Vol] 0.93 mg/dL Normal 0.55-1.02 [facility] Comment on above: Performed By: #### C MP #### [facility] [address] [address] [address] Tg Fierro EGFR-AF TOGOLESE >60 Normal >=60 [facility] Comment on above: Performed By: #### C MP #### [facility] [address] [address] [address] Tg Fierro EGFR-NON AF TOGOLESE 59 mL/min/1.73m2 Critically low >=60 [facility] Comment on above: Performed By: #### C MP #### [facility] [address] [address] [address] gT Fierro Globulin (S) [Mass/Vol] 3.2 g/dL Normal [facility] Comment on above: Performed By: #### C MP #### [facility] [address] [address] [address] Tg Fierro Glucose [Mass/Vol] 186 mg/dL Critically high 74-106 [facility] Comment on above: Performed By: #### C MP #### [facility] [address] [address] [address] Tg Fierro Potassium [Moles/Vol] 4.6 mmol/L Normal 3.5-5.1 [facility] Comment on above: Performed By: #### C MP #### [facility] [address] [place] [address] Dr. Tg Fierro Protein [Mass/Vol] 7.0 g/dL Normal 6.4-8.2 [facility] Comment on above: Performed By: #### C MP #### [facility] [address] [place] [address] Dr. Tg Fierro Sodium [Moles/Vol] 142 mmol/L Normal 136-145 [facility] Comment on above: Performed By: #### C MP #### [facility] [address] [place] [address] Dr. Tg Fierro Urea nitrogen [Mass/Vol] 15.0 mg/dL Normal 7.0-18.0 [facility] Comment on above: Performed By: #### C MP #### [facility] [address] [place] [address] Dr. Tg Fierro Urea nitrogen/Creatinine [Mass ratio] 16.1 mg/mg Normal [facility] Comment on above: Performed By: #### C MP #### [facility] [address] [place] [address] Dr. Tg Fierro SED RATE WESTERGRENon 2022 SED RATE 9 mm/hr Normal <=30 [facility] Comment on above: Performed By: #### C MP #### [facility] [address] [place] [address] Dr. Tg Fierro PROTIMEon 10-14-2022 INR Coag (PPP) [Relative time] 1.94 {INR} Normal [facility] Comment on above: Performed By: #### P T #### [facility] [address] [place] [address] Dr. Tg Fierro INR GUIDELINES SEE BELOW Normal [facility] Comment on above: Result Comment: LAURENCE RED INR: 2.0 - 3.0 CONDITIONS NOT LISTED BELOW 2.5 - 3.5 FOR PROSTHETIC HEART VALVE REPLACEMENT 2.5 - 3.5 RECURRENT THROMBOSIS Performed By: #### P T #### [facility] [address] [place] [address] Dr. Tg Fierro PT Coag (PPP) [Time] 19.8 s Critically high 9.0-11.6 [facility] Comment on above: Performed By: #### P T #### [facility] [address] [place] [address] Dr. Tg Fierro CBC AUTO DIFFon 09-24-2022 BASO # 0.1 103/ul Normal 0.0-0.1 [facility] Comment on above: Performed By: #### P T #### [facility] [address] [place] [address] Dr. Tg Fierro Basophils/100 WBC (Bld) 0.7 % Normal 0.2-2.0 [facility] Comment on above: Performed By: #### P T #### [facility] [address] [place] [address] Dr. Tg Fierro EO # 0.3 103/ul Normal 0.0-0.7 [facility] Comment on above: Performed By: #### P T #### [facility] [address] [place] [address] Dr. Tg Fierro Eosinophils/100 WBC (Bld) 3.6 % Normal 0.9-7.0 [facility] Comment on above: Performed By: #### P T #### [facility] [address] [place] [address] Dr. Tg Fierro Erythrocyte distribution wid th (RBC) [Ratio] 13.4 % Normal 11.0-15.0 [facility] Comment on above: Performed By: #### P T #### [facility] [address] [place] [address] Dr. Tg Fierro Hematocrit (Bld) [Volume fraction] 38.4 % Normal 3 6.0-48.0 [facility] Comment on above: Performed By: #### P T #### [facility] [address] [place] [address] Dr. Tg Fierro Hemoglobin (Bld) [Mass/Vol] 12.7 g/dL Normal 12.0-16. 0 [facility] Comment on above: Performed By: #### P T #### [facility] [address] [place] [address] Dr. Tg Fierro IG # 0.05 10e3/ul Critically high 0.00-0.03 [facility] Comment on above: Performed By: #### P T #### [facility] [address] [place] [address] Dr. Tg Fierro IG % 0.7 % Critically high 0.0-0.5 [facility] Comment on above: Performed By: #### P T #### [facility] [address] [place] [address] Dr. Tg Fierro LYMPH # 2.6 103/ul Normal 1.2-3.8 [facility] Comment on above: Performed By: #### P T #### [facility] [address] [place] [address] Dr. Tg Fierro Lymphocytes/100 WBC (Bld) 34.2 % Normal 20.5-60.0 [facility] Comment on above: Performed By: #### P T #### [facility] [address] [place] [address] Dr. Tg Fierro MANUAL DIFF REQ NO Normal [facility] Comment on above: Performed By: #### P T #### [facility] [address] [place] [address] Dr. Tg Fierro MCH (RBC) [Entitic mass] 31.2 pg Normal 26.7-34.0 [facility] Comment on above: Performed By: #### P T #### [facility] [address] [place] [address] Dr. Tg Fierro MCHC (RBC) [Mass/Vol] 33.1 g/dL Normal 29.9-35.2 [facility] Comment on above: Performed By: #### P T #### [facility] [address] [place] [address] Dr. Tg Fierro MCV (RBC) [Entitic vol] 94.3 fL Normal 81.0-99.0 [facility] Comment on above: Performed By: #### P T #### [facility] [address] [place] [address] Dr. Tg Fierro MONO # 0.6 103/ul Normal 0.3-0.8 [facility] Comment on above: Performed By: #### P T #### [facility] [address] [place] [address] Dr. Tg Fierro Monocytes/100 WBC (Bld) 8.1 % Normal 1.7-12.0 [facility] Comment on above: Performed By: #### P T #### [facility] [address] [place] [address] Dr. Tg Fierro NEUT # 4.1 103/ul Normal 1.4-6.5 [facility] Comment on above: Performed By: #### P T #### [facility] [address] [place] [address] Dr. Tg Fierro Neutrophils/100 WBC (Bld) 52.7 % Normal 43.0-75.0 [facility] Comment on above: Performed By: #### P T #### [facility] [address] [place] [address] Dr. Tg Fierro Platelet mean volume (Bld) [Entitic vol] 8.7 fL Critically low 9.5-13.5 [facility] Comment on above: Performed By: #### P T #### [facility] [address] [place] [address] Dr. Tg Fierro PLT 278 103/ul Normal 150-450 [facility] Comment on above: Performed By: #### P T #### [facility] [address] [place] [address] Dr. Tg Fierro RBC 4.07 106/ul Critically low 4.20-5.40 [facility] Comment on above: Performed By: #### P T #### [facility] [address] [place] [address] Dr. Tg Fierro WBC 7.7 103/ul Normal 4.0-11.0 [facility] Comment on above: Performed By: #### P T #### [facility] [address] [place] [address] Dr. Tg Fierro PROF 14(COMP METB)on 023 Albumin [Mass/Vol] 3.9 g/dL Normal 3.4-5.0 [facility] Comment on above: Performed By: #### C MP #### [facility] [address] [place] [address] Dr. Tg Fierro Albumin/Globulin [Mass ratio] 1.4 {ratio} Normal [facility] Comment on above: Performed By: #### C MP #### [facility] [address] [place] [address] Dr. Tg Fierro ALP [Catalytic activity/Vol] 59 U/L Normal 46-116 [facility] Comment on above: Performed By: #### C MP #### [facility] [address] [place] [address] Dr. Tg Fierro ALT [Catalytic activity/Vol] 21 U/L Normal 14-59 [facility] Comment on above: Performed By: #### C MP #### [facility] [address] [place] [address] Dr. Tg Fierro Anion gap [Moles/Vol] 10.8 mmol/L Normal [facility] Comment on above: Performed By: #### C MP #### [facility] [address] [place] [address] Dr. Tg Fierro AST [Catalytic activity/Vol] 9 U/L Critically low 15- 37 [facility] Comment on above: Performed By: #### C MP #### [facility] [address] [address] [address] Tg Fierro Bilirubin [Mass/Vol] 0.3 mg/dL Normal 0.2-1.0 [facility] Comment on above: Performed By: #### C MP #### [facility] [address] [address] [address] Tg Fierro Calcium [Mass/Vol] 9.1 mg/dL Normal 8.5-10.1 [facility] Comment on above: Performed By: #### C MP #### [facility] [address] [place] [address] Dr. Tg Fierro Chloride [Moles/Vol] 104 mmol/L Normal 98-107 [facility] Comment on above: Performed By: #### C MP #### [facility] [address] [address] [address] Tg Fierro CO2 [Moles/Vol] 28.3 mmol/L Normal 21.0-32.0 [facility] Comment on above: Performed By: #### C MP #### [facility] [address] [place] [address] Dr. Tg Fierro Creatinine [Mass/Vol] 0.86 mg/dL Normal 0.55-1.02 [facility] Comment on above: Performed By: #### C MP #### [facility] [address] [address] [address] Tg Fierro EGFR-AF TOGOLESE >60 Normal >=60 [facility] Comment on above: Performed By: #### C MP #### [facility] [address] [address] [address] Tg Fierro EGFR-NON AF TOGOLESE >60 Normal >=60 [facility] Comment on above: Performed By: #### C MP #### [facility] [address] [place] [address] Dr. Tg Fierro Globulin (S) [Mass/Vol] 2.7 g/dL Normal [facility] Comment on above: Performed By: #### C MP #### [facility] [address] [address] [address] Tg Fierro Glucose [Mass/Vol] 120 mg/dL Critically high 74-106 [facility] Comment on above: Performed By: #### C MP #### [facility] [address] [address] [address] Tg Fierro Potassium [Moles/Vol] 4.1 mmol/L Normal 3.5-5.1 [facility] Comment on above: Performed By: #### C MP #### [facility] [address] [address] [address] Tg Fierro Protein [Mass/Vol] 6.6 g/dL Normal 6.4-8.2 [facility] Comment on above: Performed By: #### C MP #### [facility] [address] [address] [address] Tg Fierro Sodium [Moles/Vol] 139 mmol/L Normal 136-145 [facility] Comment on above: Performed By: #### C MP #### [facility] [address] [address] [address] Tg Fierro Urea nitrogen [Mass/Vol] 13.0 mg/dL Normal 7.0-18.0 [facility] Comment on above: Performed By: #### C MP #### [facility] [address] [address] [address] Tg Fierro Urea nitrogen/Creatinine [Mass ratio] 15.1 mg/mg Normal [facility] Comment on above: Performed By: #### C MP #### [facility] [address] [address] [address] Tg Fierro PROTIMEon 09-24-2022 INR Coag (PPP) [Relative time] 1.35 {INR} Normal [facility] Comment on above: Performed By: #### P T #### [facility] [address] [address] [address] Tg Fierro INR GUIDELINES SEE BELOW Normal [facility] Comment on above: Result Comment: LAURENCE RED INR: 2.0 - 3.0 CONDITIONS NOT LISTED BELOW 2.5 - 3.5 FOR PROSTHETIC HEART VALVE REPLACEMENT 2.5 - 3.5 RECURRENT THROMBOSIS Performed By: #### P T #### [facility] [address] [place] [address] Dr. Tg Fierro PT Coag (PPP) [Time] 14.1 s Critically high 9.0-11.6 [facility] Comment on above: Performed By: #### P T #### [facility] [address] [place] [address] Dr. Tg Fierro SED RATE POOLVILLEERGREN 2022 SED RATE 8 mm/hr Normal <=30 [facility] Comment on above: Performed By: #### C MP #### [facility] [address] [place] [address] Dr. Tg Fierro PROTIMEon 09-09-2022 INR Coag (PPP) [Relative time] 1.23 {INR} Normal [facility] Comment on above: Performed By: #### P T #### [facility] [address] [place] [address] Dr. Tg Fierro INR GUIDELINES SEE BELOW Normal [facility] Comment on above: Result Comment: LAURENCE RED INR: 2.0 - 3.0 CONDITIONS NOT LISTED BELOW 2.5 - 3.5 FOR PROSTHETIC HEART VALVE REPLACEMENT 2.5 - 3.5 RECURRENT THROMBOSIS Performed By: #### P T #### [facility] [address] [place] [address] Dr. Tg Fierro PT Coag (PPP) [Time] 12.9 s Critically high 9.0-11.6 [facility] Comment on above: Performed By: #### P T #### [facility] [address] [place] [address] Dr. Tg Fierro ECHOCARDIO M/2D COMPLETEon 0 09-02-2022 ECHOCARDIO M/2D COMPLETE Patient: WILDA SEN Exam Date: 09/02/2022 : 1945 Gender:F Ordering : DR JAYME PEREZ . Admission #: [id number] Family : Order #: [id number] CLICK HERE TO VIEW EXAM ECHOCARDIOGRAM REPORT PROCEDURE: CARDIO PULMONARY ECHOCARDIO M/2D COMP INDICATIONS: Chronic diastolic heart failure, diabetes COMPARISON: None. DESCRIPTION: COMPLETE ECHOCARDIOGRAM Real-time transthoracic echocardiography with 2D, M-mode, spectral and color flow Doppler performed. QUALITY: Technical quality was good. LEFT VENTRICLE: Normal chamber size. Mild concentric hypertrophy. Normal systolic function. LV EF: Normal left ventricular ejection fraction, (>55%). DIASTOLIC: ATRIAL SEPTUM: LEFT ATRIUM: Moderate dilatation. RIGHT ATRIUM: Normal chamber size. RIGHT VENTRICLE: Normal chamber size. Normal systolic function. TRICUSPID VALVE: Normal mobility and thickness. No stenosis with trivial regurgitation. No evidence of pulmonary hypertension. RVSP 23 mmHg MITRAL VALVE: Normal mobility and thickness. No evidence of mitral valve stenosis. Mild mitral annular calcification. No mitral regurgitation. AORTIC VALVE: The valve is possibly bicuspid. Mildly calcified aortic valve. Mildly diminished mobility. Doppler velocity suggest mild aortic valve stenosis. DVI 0.4, KI 1.8 cm2. No aortic regurgitation. AORTIC ROOT: Normal diameter and appearance. PULMONIC VALVE: Normal thickness and mobility. No stenosis. Trivial regurgitation. PERICARDIUM: No evidence of pericardial effusion. IVC: Not well visualized. PLEURA: CONCLUSION: 1. Mild concentric left ventricular hypertrophy. Normal ventricular systolic function. LVEF is 55 to 60%. 2. Possibly bicuspid aortic valve with mild stenosis and no regurgitation. 3. Normal right-sided pressures. 4. No pericardial effusion. Adult Echocardiography Procedure Report Left Ventricle LVEDD (3.7 - 5.6 cm): 3.44 cm LVESD (2.2 - 4.0 cm): 2.40 cm LVIVS thickness (0.6 - 1.2 cm): 1.30 cm LVPW thickness (0.5 - 1.0 cm): 1.07 cm e': 0.08 m/s E - e': 8.03 LVOT Max Gradient: 2.93 mm[Hg], 3.09 mm[Hg] Peak Velocity (LVOT): 0.86 m/s, 0.88 m/s Mean Velocity (LVOT): 0.60 m/s, 0.59 m/s LVOT Diameter 1.93 cm Left Ventricular Ejection Fraction: 55-60% Left Atrium LA Volume Index (2D A2C): 56.24 ml, 56.24 ml Left Atrium Systolic Dimension: 2.52 cm Mitral Valve MV E to A Ratio: 0.61, 0.65 Mitral Valve A-Wave Peak Velocity: 1.06 m/s, 0.98 m/s Mitral Valve E-Wave Peak Velocity: 0.65 m/s, 0.64 m/s Right Ventricle Aorta AO Root Diam: 2.65 cm Aortic Valve AoV Area (Peak Arash): 1.78 cm2, 2.63 cm2, 2.98 cm2 AoV Area (VTI): 2.32 cm2, 3.30 cm2, 3.39 cm2 Peak Velocity(Antegrade Flow): 0.95 m/s, 0.86 m/s, 1.95 m/s, 1.90 m/s Peak Gradient(Antegrade Flow): 3.60 mm[Hg], 2.94 mm[Hg], 15.28 mm[Hg], 14.45 mm[Hg] Mean Velocity(Antegrade Flow): 0.64 m/s, 0.59 m/s, 1.29 m/s, 1.14 m/s Mean Gradient(Antegrade Flow): 1.89 mm[Hg], 1.61 mm[Hg], 8.07 mm[Hg], 6.93 mm[Hg] Velocity Time Integral: 23.33 cm, 21.35 cm, 45.75 cm, 38.62 cm Tricuspid Valve Peak Velocity (Regurgitant Flow): 2.22 m/s Peak Velocity: 0.30 m/s Pulmonic Valve Peak Velocity: 1.00 m/s, 0.78 m/s Peak Gradient: 4.04 mm[Hg], 2.44 mm[Hg] Right Atrium Right Atrium Systolic Pressure: 43.92 ml, 43.92 ml Dictated by: Dez Bender M.D. on 09/03/2022 at 17:09 Approved by: Dez Bender M.D. on 09/03/2022 at 17:25 Normal [facility] GLYCOHEMOGLOBIN A1Con 2022 ADA RECOMMENDATION SEE BELOW Normal [facility] Comment on above: Result Comment: ADA RECOMMENDED LIMIT 4.0 - 6.0 ADA THERAPEUTIC TARGET < 7.0 ACTION SUGGESTED > 7.0 Performed By: #### A 1C #### [facility] [address] [place], [place] [id number] Dr. Tg Fierro Glucose [Mass/Vol] 148 mg/dL Normal [facility] Comment on above: Performed By: #### A 1C #### [facility] [address] [place] [address] Dr. Tg Fierro HbA1c (Bld) [Mass fraction] 6.8 % Critically high 4.5 -6.2 [facility] Comment on above: Performed By: #### A 1C #### [facility] [address] [place] [address] Dr. Tg Fierro CBC AUTO DIFFon 08-05-2022 BASO # 0.1 103/ul Normal 0.0-0.1 [facility] Comment on above: Performed By: #### C BC #### [facility] [address] [place] [address] Dr. Tg Fierro Basophils/100 WBC (Bld) 0.8 % Normal 0.2-2.0 [facility] Comment on above: Performed By: #### C BC #### [facility] [address] [place] [address] Dr. Tg Fierro EO # 0.5 103/ul Normal 0.0-0.7 [facility] Comment on above: Performed By: #### C BC #### [facility] [address] [place] [address] Dr. Tg Fierro Eosinophils/100 WBC (Bld) 7.3 % Critically high 0.9-7 .0 [facility] Comment on above: Performed By: #### C BC #### [facility] [address] [place] [address] Dr[address] Tg Firero Erythrocyte distribution wid th (RBC) [Ratio] 13.4 % Normal 11.0-15.0 [facility] Comment on above: Performed By: #### C BC #### [facility] [address] [place] [address] Dr. Tg Fierro Hematocrit (Bld) [Volume fraction] 37.1 % Normal 3 6.0-48.0 [facility] Comment on above: Performed By: #### C BC #### [facility] [address] [address] [address] Tg Fierro Hemoglobin (Bld) [Mass/Vol] 12.9 g/dL Normal 12.0-16. 0 [facility] Comment on above: Performed By: #### C BC #### [facility] [address] [place] [address] Dr. Tg Fierro IG # 0.03 10e3/ul Normal 0.00-0.03 [facility] Comment on above: Performed By: #### C BC #### [facility] [address] [place] [address] Dr. Tg Fierro IG % 0.5 % Normal 0.0-0.5 [facility] Comment on above: Performed By: #### C BC #### [facility] [address] [place] [address] Dr. Tg Fierro LYMPH # 2.3 103/ul Normal 1.2-3.8 [facility] Comment on above: Performed By: #### C BC #### [facility] [address] [place] [address] Dr. Tg Fierro Lymphocytes/100 WBC (Bld) 34.9 % Normal 20.5-60.0 [facility] Comment on above: Performed By: #### C BC #### [facility] [address] [place] [address] Dr. Tg Fierro MANUAL DIFF REQ NO Normal [facility] Comment on above: Performed By: #### C BC #### [facility] [address] [place] [address] Dr. Tg Fierro MCH (RBC) [Entitic mass] 31.0 pg Normal 26.7-34.0 [facility] Comment on above: Performed By: #### C BC #### [facility] [address] [place] [address] Dr. Tg Fierro MCHC (RBC) [Mass/Vol] 34.8 g/dL Normal 29.9-35.2 [facility] Comment on above: Performed By: #### C BC #### [facility] [address] [address] [address] Tg Fierro MCV (RBC) [Entitic vol] 89.2 fL Normal 81.0-99.0 [facility] Comment on above: Performed By: #### C BC #### [facility] [address] [place] [address] Dr. Tg Fierro MONO # 0.4 103/ul Normal 0.3-0.8 [facility] Comment on above: Performed By: #### C BC #### [facility] [address] [place] [address] Dr. Tg Fierro Monocytes/100 WBC (Bld) 6.1 % Normal 1.7-12.0 [facility] Comment on above: Performed By: #### C BC #### [facility] [address] [place] [address] Dr. Tg Fierro NEUT # 3.3 103/ul Normal 1.4-6.[address] [facility] Comment on above: Performed By: #### C BC #### [facility] [address] [place] [address] Dr. Tg Fierro Neutrophils/100 WBC (Bld) 50.4 % Normal 43.0-75.0 [facility] Comment on above: Performed By: #### C BC #### [facility] [address] [place] [address] Dr. Tg Fierro Platelet mean volume (Bld) [Entitic vol] 8.6 fL Critically low 9.5-13.5 [facility] Comment on above: Performed By: #### C BC #### [facility] [address] [place] [address] Dr. Tg Fierro PLT 336 103/ul Normal 150-450 [facility] Comment on above: Performed By: #### C BC #### [facility] [address] [place] [address] Dr. Tg Fierro RBC 4.16 106/ul Critically low 4.20-5.40 [facility] Comment on above: Performed By: #### C BC #### [facility] [address] [place] [address] Dr. Tg Fierro WBC 6.4 103/ul Normal 4.0-11.0 [facility] Comment on above: Performed By: #### C BC #### [facility] [address] [place] [address] Dr. gT Fierro PROF 14(COMP METB)on 023 Albumin [Mass/Vol] 3.9 g/dL Normal 3.4-5.0 [facility] Comment on above: Performed By: #### P T #### [facility] [address] [place] [address] Dr. Tg Fierro Albumin/Globulin [Mass ratio] 1.3 {ratio} Normal [facility] Comment on above: Performed By: #### P T #### [facility] [address] [place] [address] Dr. Tg Fierro ALP [Catalytic activity/Vol] 60 U/L Normal 46-116 [facility] Comment on above: Performed By: #### P T #### [facility] [address] [place] [address] Dr. Tg Fierro ALT [Catalytic activity/Vol] 21 U/L Normal 14-59 [facility] Comment on above: Performed By: #### P T #### [facility] [address] [place] [address] Dr. Tg Fierro Anion gap [Moles/Vol] 15.2 mmol/L Normal [facility] Comment on above: Performed By: #### P T #### [facility] [address] [place] [address] Dr. Tg Fierro AST [Catalytic activity/Vol] 14 U/L Critically low 15- 37 [facility] Comment on above: Performed By: #### P T #### [facility] [address] [place] [address] Dr. Tg Fierro Bilirubin [Mass/Vol] 0.4 mg/dL Normal 0.2-1.0 [facility] Comment on above: Performed By: #### P T #### [facility] [address] [place] [address] Dr. Tg Fierro Calcium [Mass/Vol] 9.3 mg/dL Normal 8.5-10.1 [facility] Comment on above: Performed By: #### P T #### [facility] [address] [place] [address] Dr. Tg Fierro Chloride [Moles/Vol] 102 mmol/L Normal 98-107 [facility] Comment on above: Performed By: #### P T #### [facility] [address] [place] [address] Dr. Tg Fierro CO2 [Moles/Vol] 26.8 mmol/L Normal 21.0-32.0 [facility] Comment on above: Performed By: #### P T #### [facility] [address] [place] [address] Dr. Tg Fierro Creatinine [Mass/Vol] 0.74 mg/dL Normal 0.55-1.02 [facility] Comment on above: Performed By: #### P T #### [facility] [address] [place] [address] Dr. Tg Fierro EGFR-AF TOGOLESE >60 Normal >=60 [facility] Comment on above: Performed By: #### P T #### [facility] [address] [place] [address] Dr. Tg Fierro EGFR-NON AF TOGOLESE >60 Normal >=60 [facility] Comment on above: Performed By: #### P T #### [facility] [address] [place] [address] Dr. Tg Fierro Globulin (S) [Mass/Vol] 3.1 g/dL Normal [facility] Comment on above: Performed By: #### P T #### [facility] [address] [place] [address] Dr. Tg Fierro Glucose [Mass/Vol] 148 mg/dL Critically high 74-106 [facility] Comment on above: Performed By: #### P T #### [facility] [address] [place] [address] Dr. Tg Fierro Potassium [Moles/Vol] 4.0 mmol/L Normal 3.5-5.1 [facility] Comment on above: Performed By: #### P T #### [facility] [address] [place] [address] Dr. Tg Fierro Protein [Mass/Vol] 7.0 g/dL Normal 6.4-8.2 [facility] Comment on above: Performed By: #### P T #### [facility] [address] [place] [address] Dr. Tg Fierro Sodium [Moles/Vol] 140 mmol/L Normal 136-145 [facility] Comment on above: Performed By: #### P T #### [facility] [address] [place] [address] Dr. Tg Fierro Urea nitrogen [Mass/Vol] 12.0 mg/dL Normal 7.0-18.0 [facility] Comment on above: Performed By: #### P T #### [facility] [address] [place] [address] Dr. Tg Fierro Urea nitrogen/Creatinine [Mass ratio] 16.2 mg/mg Normal [facility] Comment on above: Performed By: #### P T #### [facility] [address] [place] [address] Dr. Tg Fier[facility] mm/hr Normal <=30 [facility] Comment on above: Performed By: #### S EDR #### [facility] [address] [place] [address] Dr. Tg Fierro CBC AUTO DIFFon 04-15-2022 BASO # 0.1 103/ul Normal 0.0-0.1 [facility] Comment on above: Performed By: #### C BC #### [facility] [address] [place] [address] Dr. Tg Fierro Basophils/100 WBC (Bld) 0.6 % Normal 0.2-2.0 [facility] Comment on above: Performed By: #### C BC #### [facility] [address] [place] [address] Dr. Tg Fierro EO # 0.2 103/ul Normal 0.0-0.7 [facility] Comment on above: Performed By: #### C BC #### [facility] [address] [place] [address] Dr. Tg Fierro Eosinophils/100 WBC (Bld) 3.1 % Normal 0.9-7.0 [facility] Comment on above: Performed By: #### C BC #### [facility] [address] [place] [address] Dr. Tg Fierro Erythrocyte distribution wid th (RBC) [Ratio] 13.6 % Normal 11.0-15.0 [facility] Comment on above: Performed By: #### C BC #### [facility] [address] [place] [address] Dr. Tg Fierro Hematocrit (Bld) [Volume fraction] 42.3 % Normal 3 6.0-48.0 [facility] Comment on above: Performed By: #### C BC #### [facility] [address] [place] [address] Dr. Tg Fierro Hemoglobin (Bld) [Mass/Vol] 13.2 g/dL Normal 12.0-16. 0 [facility] Comment on above: Performed By: #### C BC #### [facility] [address] [place] [address] Dr. gT Fierro IG # 0.04 10e3/ul Critically high 0.00-0.[address] [facility] Comment on above: Performed By: #### C BC #### [facility] [address] [place] [address] Dr. Tg Fierro IG % 0.5 % Normal 0.0-0.5 [facility] Comment on above: Performed By: #### C BC #### [facility] [address] [place] [address] Dr. Tg Fierro LYMPH # 2.5 103/ul Normal 1.2-3.8 [facility] Comment on above: Performed By: #### C BC #### [facility] [address] [place] [address] Dr. Tg Fierro Lymphocytes/100 WBC (Bld) 31.6 % Normal 20.5-60.0 [facility] Comment on above: Performed By: #### C BC #### [facility] [address] [place] [address] Dr. Tg Fierro MANUAL DIFF REQ NO Normal [facility] Comment on above: Performed By: #### C BC #### [facility] [address] [place] [address] Dr. Tg Fierro MCH (RBC) [Entitic mass] 30.3 pg Normal 26.7-34.0 [facility] Comment on above: Performed By: #### C BC #### [facility] [address] [place] [address] Dr. Tg Fierro MCHC (RBC) [Mass/Vol] 31.2 g/dL Normal 29.9-35.2 [facility] Comment on above: Performed By: #### C BC #### [facility] [address] [place] [address] Dr. Tg Fierro MCV (RBC) [Entitic vol] 97.0 fL Normal 81.0-99.0 [facility] Comment on above: Performed By: #### C BC #### [facility] [address] [place] [address] Dr. Tg Fierro MONO # 0.5 103/ul Normal 0.3-0.8 [facility] Comment on above: Performed By: #### C BC #### [facility] [address] [place] [address] Dr. Tg Fierro Monocytes/100 WBC (Bld) 6.3 % Normal 1.7-12.0 [facility] Comment on above: Performed By: #### C BC #### [facility] [address] [place] [address] Dr. Tg Fierro NEUT # 4.5 103/ul Normal 1.4-6.5 [facility] Comment on above: Performed By: #### C BC #### [facility] [address] [place] [address] Dr. Tg Fierro Neutrophils/100 WBC (Bld) 57.9 % Normal 43.0-75.0 [facility] Comment on above: Performed By: #### C BC #### [facility] [address] [place] [address] Dr. Tg Fierro Platelet mean volume (Bld) [Entitic vol] 8.6 fL Critically low 9.5-13.5 [facility] Comment on above: Performed By: #### C BC #### [facility] [address] [place] [address] Dr. Tg Fierro PLT 295 103/ul Normal 150-450 [facility] Comment on above: Performed By: #### C BC #### [facility] [address] [place] [address] Dr. Tg Fierro RBC 4.36 106/ul Normal 4.20-5.40 [facility] Comment on above: Performed By: #### C BC #### [facility] [address] [place] [address] Dr. Tg Fierro WBC 7.8 103/ul Normal 4.0-11.0 [facility] Comment on above: Performed By: #### C BC #### [facility] [address] [place] [address] Dr. Tg Fierro PROF 14(COMP METB)on 022 Albumin [Mass/Vol] 4.5 g/dL Normal 3.4-5.0 [facility] Comment on above: Performed By: #### C MP #### [facility] [address] [place] [address] Dr. Tg Fierro Albumin/Globulin [Mass ratio] 1.5 {ratio} Normal [facility] Comment on above: Performed By: #### C MP #### [facility] [address] [place] [address] Dr. Tg Fierro ALP [Catalytic activity/Vol] 62 U/L Normal 46-116 [facility] Comment on above: Performed By: #### C MP #### [facility] [address] [place] [address] Dr. Tg Fierro ALT [Catalytic activity/Vol] 25 U/L Normal 14-59 [facility] Comment on above: Performed By: #### C MP #### [facility] [address] [address] [address] Tg Fierro Anion gap [Moles/Vol] 10.6 mmol/L Normal [facility] Comment on above: Performed By: #### C MP #### [facility] [address] [address] [address] Tg Fierro AST [Catalytic activity/Vol] 12 U/L Critically low 15- 37 [facility] Comment on above: Performed By: #### C MP #### [facility] [address] [address] [address] Tg Fierro Bilirubin [Mass/Vol] 0.5 mg/dL Normal 0.2-1.0 [facility] Comment on above: Performed By: #### C MP #### [facility] [address] [address] [address] Tg Fierro Calcium [Mass/Vol] 9.8 mg/dL Normal 8.5-10.1 [facility] Comment on above: Performed By: #### C MP #### [facility] [address] [address] [address] Tg Fierro Chloride [Moles/Vol] 102 mmol/L Normal 98-107 [facility] Comment on above: Performed By: #### C MP #### [facility] [address] [address] [address] Tg Fierro CO2 [Moles/Vol] 31.8 mmol/L Normal 21.0-32.0 [facility] Comment on above: Performed By: #### C MP #### [facility] [address] [address] [address] Tg Fierro Creatinine [Mass/Vol] 0.88 mg/dL Normal 0.55-1.02 [facility] Comment on above: Performed By: #### C MP #### [facility] [address] [address] [address] Tg Fierro EGFR-AF TOGOLESE >60 Normal >=60 [facility] Comment on above: Performed By: #### C MP #### [facility] [address] [address] [address] Tg Fierro EGFR-NON AF TOGOLESE >60 Normal >=60 [facility] Comment on above: Performed By: #### C MP #### [facility] [address] [address] [address] Tg Fierro Globulin (S) [Mass/Vol] 3.1 g/dL Normal [facility] Comment on above: Performed By: #### C MP #### [facility] [address] [address] [address] Tg Fierro Glucose [Mass/Vol] 187 mg/dL Critically high 74-106 [facility] Comment on above: Performed By: #### C MP #### [facility] [address] [address] [address] Tg Fierro Potassium [Moles/Vol] 4.4 mmol/L Normal 3.5-5.1 [facility] Comment on above: Performed By: #### C MP #### [facility] [address] [address] [address] Tg Fierro Protein [Mass/Vol] 7.6 g/dL Normal 6.4-8.2 [facility] Comment on above: Performed By: #### C MP #### [facility] [address] [address] [address] Tg Fierro Sodium [Moles/Vol] 140 mmol/L Normal 136-145 [facility] Comment on above: Performed By: #### C MP #### [facility] [address] [address] [address] Tg Fierro Urea nitrogen [Mass/Vol] 14.0 mg/dL Normal 7.0-18.0 [facility] Comment on above: Performed By: #### C MP #### [facility] [address] [address] [address] Tg Fierro Urea nitrogen/Creatinine [Mass ratio] 15.9 mg/mg Normal [facility] Comment on above: Performed By: #### C MP #### [facility] [address] [place] [address] Dr. Tg Fierro SED RATE WE[facility]on 2021 SED RATE 5 mm/hr Normal <=30 [facility] Comment on above: Performed By: #### S EDR #### [facility] [address] [place] [address] Dr. Tg Fierro CBC AUTO DIFFon 02-07-2022 BASO # 0.0 103/ul Normal 0.0-0.1 [facility] Comment on above: Performed By: #### P T #### [facility] [address] [place] [address] Dr. Tg Fierro Basophils/100 WBC (Bld) 0.6 % Normal 0.2-2.0 [facility] Comment on above: Performed By: #### P T #### [facility] [address] [place] [address] Dr. Tg Fierro EO # 0.4 103/ul Normal 0.0-0.7 [facility] Comment on above: Performed By: #### P T #### [facility] [address] [place] [address] Dr. Tg Fierro Eosinophils/100 WBC (Bld) 5.4 % Normal 0.9-7.0 [facility] Comment on above: Performed By: #### P T #### [facility] [address] [place] [address] Dr. Tg Fierro Erythrocyte distribution wid th (RBC) [Ratio] 13.5 % Normal 11.0-15.0 [facility] Comment on above: Performed By: #### P T #### [facility] [address] [place] [address] Dr. Tg Fierro Hematocrit (Bld) [Volume fraction] 39.4 % Normal 3 6.0-48.0 [facility] Comment on above: Performed By: #### P T #### [facility] [address] [place] [address] Dr. Tg Fierro Hemoglobin (Bld) [Mass/Vol] 12.8 g/dL Normal 12.0-16. 0 [facility] Comment on above: Performed By: #### P T #### [facility] [address] [place] [address] Dr. Tg Fierro IG # 0.02 10e3/ul Normal 0.00-0.03 [facility] Comment on above: Performed By: #### P T #### [facility] [address] [place] [address] Dr. Tg Fierro IG % 0.3 % Normal 0.0-0.5 [facility] Comment on above: Performed By: #### P T #### [facility] [address] [place] [address] Dr. Tg Fierro LYMPH # 2.4 103/ul Normal 1.2-3.8 [facility] Comment on above: Performed By: #### P T #### [facility] [address] [place] [address] Dr. Tg Fierro Lymphocytes/100 WBC (Bld) 36.2 % Normal 20.5-60.0 [facility] Comment on above: Performed By: #### P T #### [facility] [address] [place] [address] Dr. Tg Fierro MANUAL DIFF REQ NO Normal [facility] Comment on above: Performed By: #### P T #### [facility] [address] [place] [address] Dr. Tg Fierro MCH (RBC) [Entitic mass] 31.0 pg Normal 26.7-34.0 [facility] Comment on above: Performed By: #### P T #### [facility] [address] [place] [address] Dr. Tg Fierro MCHC (RBC) [Mass/Vol] 32.5 g/dL Normal 29.9-35.2 [facility] Comment on above: Performed By: #### P T #### [facility] [address] [place] [address] Dr. Tg Fierro MCV (RBC) [Entitic vol] 95.4 fL Normal 81.0-99.0 [facility] Comment on above: Performed By: #### P T #### [facility] [address] [place] [address] Dr. Tg Fierro MONO # 0.5 103/ul Normal 0.3-0.8 [facility] Comment on above: Performed By: #### P T #### [facility] [address] [place] [address] Dr. Tg Fierro Monocytes/100 WBC (Bld) 8.0 % Normal 1.7-12.0 [facility] Comment on above: Performed By: #### P T #### [facility] [address] [place] [address] Dr. gT Fierro NEUT # 3.3 103/ul Normal 1.4-6.5 [facility] Comment on above: Performed By: #### P T #### [facility] [address] [place] [address] Dr. Tg Fierro Neutrophils/100 WBC (Bld) 49.5 % Normal 43.0-75.0 [facility] Comment on above: Performed By: #### P T #### [facility] [address] [place] [address] Dr. Tg Fierro Platelet mean volume (Bld) [Entitic vol] 8.7 fL Critically low 9.5-13.5 [facility] Comment on above: Performed By: #### P T #### [facility] [address] [place] [address] Dr. Tg Fierro PLT 276 103/ul Normal 150-450 [facility] Comment on above: Performed By: #### P T #### [facility] [address] [place] [address] Dr. Tg Fierro RBC 4.13 106/ul Critically low 4.20-5.40 [facility] Comment on above: Performed By: #### P T #### [facility] [address] [place] [address] Dr. Tg Fierro WBC 6.7 103/ul Normal 4.0-11.0 [facility] Comment on above: Performed By: #### P T #### [facility] [address] [address] [address] Tg Fierro GLYCOHEMOGLOBIN A1Con 2021 ADA RECOMMENDATION SEE BELOW Normal [facility] Comment on above: Result Comment: ADA RECOMMENDED LIMIT 4.0 - 6.0 ADA THERAPEUTIC TARGET < 7.0 ACTION SUGGESTED > 7.0 Performed By: #### A 1C #### [facility] [address] [place] [address] Dr. Tg Fierro Glucose [Mass/Vol] 151 mg/dL Normal [facility] Comment on above: Performed By: #### A 1C #### [facility] [address] [place] [address] Dr. Tg Fierro HbA1c (Bld) [Mass fraction] 6.9 % Critically high 4.5 -6.2 [facility] Comment on above: Performed By: #### A 1C #### [facility] [address] [place] [address] Dr. Tg Fierro PROF 14(COMP METB)on 022 Albumin [Mass/Vol] 3.8 g/dL Normal 3.4-5.0 [facility] Comment on above: Performed By: #### P T #### [facility] [address] [place] [address] Dr. Tg Fierro Albumin/Globulin [Mass ratio] 1.3 {ratio} Normal [facility] Comment on above: Performed By: #### P T #### [facility] [address] [place] [address] Dr. Tg Fierro ALP [Catalytic activity/Vol] 43 U/L Critically low 46- 116 [facility] Comment on above: Performed By: #### P T #### [facility] [address] [place] [address] Dr. Tg Fierro ALT [Catalytic activity/Vol] 19 U/L Normal 14-59 [facility] Comment on above: Performed By: #### P T #### [facility] [address] [place] [address] Dr. Tg Firero Anion gap [Moles/Vol] 13.7 mmol/L Normal [facility] Comment on above: Performed By: #### P T #### [facility] [address] [address] [address] Tg Fierro AST [Catalytic activity/Vol] 11 U/L Critically low 15- 37 [facility] Comment on above: Performed By: #### P T #### [facility] [address] [address] [address] Tg Fierro Bilirubin [Mass/Vol] 0.4 mg/dL Normal 0.2-1.0 [facility] Comment on above: Performed By: #### P T #### [facility] [address] [address] [address] Tg Fierro Calcium [Mass/Vol] 9.1 mg/dL Normal 8.5-10.1 [facility] Comment on above: Performed By: #### P T #### [facility] [address] [address] [address] Tg Fierro Chloride [Moles/Vol] 104 mmol/L Normal 98-107 [facility] Comment on above: Performed By: #### P T #### [facility] [address] [address] [address] Fierro CO2 [Moles/Vol] 28.5 mmol/L Normal 21.0-32.0 [facility] Comment on above: Performed By: #### P T #### [facility] [address] [address] [address] Fierro Creatinine [Mass/Vol] 0.77 mg/dL Normal 0.55-1.02 [facility] Comment on above: Performed By: #### P T #### [facility] [address] [address] [address] Fierro EGFR-AF TOGOLESE >60 Normal >=60 [facility] Comment on above: Performed By: #### P T #### [facility] [address] [address] [address] Fierro EGFR-NON AF TOGOLESE >60 Normal >=60 [facility] Comment on above: Performed By: #### P T #### [facility] [address] [address] [address] Tg Fierro Globulin (S) [Mass/Vol] 3.0 g/dL Normal [facility] Comment on above: Performed By: #### P T #### [facility] [address] [address] [address] Tg Fierro Glucose [Mass/Vol] 124 mg/dL Critically high 74-106 [facility] Comment on above: Performed By: #### P T #### [facility] [address] [address] [address] Tg Fierro Potassium [Moles/Vol] 4.2 mmol/L Normal 3.5-5.1 [facility] Comment on above: Performed By: #### P T #### [facility] [address] [address] [address] Fierro Protein [Mass/Vol] 6.8 g/dL Normal 6.4-8.2 [facility] Comment on above: Performed By: #### P T #### [facility] [address] [address] [address] Tg Fierro Sodium [Moles/Vol] 142 mmol/L Normal 136-145 [facility] Comment on above: Performed By: #### P T #### [facility] [address] [address] [address] Fierro Urea nitrogen [Mass/Vol] 12.0 mg/dL Normal 7.0-18.0 [facility] Comment on above: Performed By: #### P T #### [facility] [address] [address] [address] Tg Fierro Urea nitrogen/Creatinine [Mass ratio] 15.6 mg/mg Normal [facility] Comment on above: Performed By: #### P T #### [facility] [address] [address] [address] Tg Fierro SED RATE [facility] 2021 SED RATE 8 mm/hr Normal <=30 [facility] Comment on above: Performed By: #### C MP #### [facility] [address] [address] [address] MCKEON [facility] 2020 Result Positive [facility] [employer] Other Vital Signs Date Time Vital Sign Value Performing Clinician Facility 03-26-2023 13:15-0400 Body height 160.02 cm MD Jayme Perez Work Phone: [facility] 03-26-2023 13:15-0400 Body temperature 98.2 [degF] MD Jayme Perez Work Phone: [facility] 03-26-2023 13:15-0400 Body weight 66 kg MD Jayme Perez Work Phone: [facility] 03-26-2023 13:15-0400 Diastolic blood pressure 71 mm[Hg] MD Jayme Perez Work Phone: [facility] 03-26-2023 13:15-0400 Heart rate 87 /min MD Jayme Perez Work Phone: [facility] 03-26-2023 13:15-0400 Respiratory rate 16 /min MD Jayme Perez Work Phone: [facility] 03-26-2023 13:15-0400 SaO2% (BldA) [Mass fraction] 97 % MD Jayme Perez Work Phone: [facility] 03-26-2023 13:15-0400 Systolic blood pressure 117 mm[Hg] MD Jayme Perez Work Phone: [facility] 05-21-2021 13:15-0500 Body height 160.02 cm Astrid Baker Other [facility] Other 05-21-2021 13:15-0500 Body mass index (BMI) [Ratio] 23.91 kg/m2 Astrid Baker Other [facility] Other 05-21-2021 13:15-0500 Body temperature 97.3 [degF] Astrid Baker Other [facility] Other 05-21-2021 13:15-0500 Body weight 61.24 kg Astrid Baker Other [facility] Other 05-21-2021 13:15-0500 SaO2% (BldA) [Mass fraction] 94 % Astrid Baker Other [facility] Other Encounters Encounter Date Encounter Type Care Provider Facility Start: 06-25-2023 End: 06-25-2023 ambulatory FELICIA THORNTON Not Available Start: 06-18-2023 End: 06-18-2023 ambulatory FELICIA THORNTON Not Available Start: 04-07-2023 End: 04-07-2023 Departed Referred MD Jayme Perez Work Phone: [facility] [place] Start: 04-07-2023 End: 04-08-2023 ambulatory Williams SHEPHERD Facility:[facility] Start: 03-26-2023 End: 03-26-2023 ambulatory Williams Shepherd Facility:[facility] Start: 03-26-2023 End: 03-26-2023 Patient encounter procedure MD Jayme Perez Work Phone: [facility] Work Phone: Start: 03-20-2023 End: 03-21-2023 ambulatory Williams SHEPHERD Facility:[facility] Start: 03-20-2023 End: 03-20-2023 Lab Drop off Williams SHEPHRED [facility] Start: 03-20-2023 End: 03-20-2023 Patient encounter procedure Williams SHEPHERD [facility] Start: 02-03-2023 End: 02-04-2023 ambulatory Williams Rubi CORA Facility: [facility] Start: 11-11-2022 End: 12-11-[address] JAYME PEREZ . Facility:[facility] Start: 10-25-2022 End: 10-26-[address] RADAMES MONTEIRO Facility:[facility] Start: 10-14-2022 End: 10-15-[address] JAYME PEREZ . Facility:[facility] Start: 09-24-2022 End: 09-25-[address] RADAMES MONTEIRO Facility:[facility] Start: 09-09-2022 End: 09-10-[address] JAYME PEREZ . Facility:[facility] Start: 09-02-2022 End: 09-03-[address] JAYME PEREZ . Facility:[facility] Start: 08-09-2022 End: 08-10-[address] JAYME PEREZ . Facility:[facility] Start: 08-05-2022 End: 08-06-[address] RADAMES MONTEIRO Facility:[facility] Start: 04-15-2022 End: 04-16-[address] RADAMES MONTEIRO Facility:[facility] Start: 02-20-2022 End: 02-21-[address] RADAMES MONTEIRO Facility:[facility] Start: 02-07-2022 End: 02-08-[address] JAYME PEREZ . Facility: Start: 05-21-2021 End: 05-21-2021 ambulatory Astrid Baker Other [place] [employer] Other Start: 05-21-2021 Office outpatient visit 15 minutes Astrid Baker [facility] Procedures Date Procedure Procedure Detail Performing Clinician Start: 08-26-2019 Extracorporeal shock wave lithotripsy of calculus of kidney Williams SHEPHERD Start: 04-12-2016 Cystoscopic laser lithotripsy of ureteric calculus Williams SHEPHERD Start: 03-28-2016 Cystoscopic removal of ureteric stent Williams SHEPHERD Start: 02-15-2016 Extracorporeal shock wave lithotripsy of calculus of kidney Williams SHEPHERD Start: 01-16-2016 Endoscopic retrograd e pyelogram Williams SHEPHERD Start: 06-29-2013 Extracorporeal shock wave lithotripsy of calculus of kidney Williams SHEPHERD Start: 09-10-2010 Cystoscopic removal of ureteric stent Williams SHEPHERD Start: 08-29-2010 Extracorporeal shock wave lithotripsy of calculus of kidney Williams SHEPHERD Start: 08-23-2010 Cystoscopic insertio n of ureteric stent Williams SHEPHERD Start: 03-02-2008 Endoscopic retrograd e pyelogram Williams SHEPHERD Start: 10-16-2004 Cystoscopic anastomo sis of ureter to bladder with insertion of stent into ureter Williams SHEPHERD Plan of Treatment Date Care Activity Detail Author Start: 07-12-2024 ambulatory Ambulatory Facility:[facility] Start: 04-07-2023 Abdomen endoscopy OR Cysto/Retro/Stent/Stone/H olmium Laser (Right) [facility] Immunizations Immunization Date Immunization Notes Care Provider Yaya oswald NEGATED: Highlighted row has not occurred!09-21-2019 influenza virus vaccine, live, attenuated, for intranasal use [facility] [employer] [facility] NEGATED: Highlighted row has not occurred!08-20-2019 influenza virus vaccine, live, attenuated, for intranasal use [facility] [facility] Payers Date Payer Category Payer Self-pay [id number] 2022 Medicare [id number] 1958 Medicare [id number] 2.1 [id number] 1959 Unknown [id number] 1945 Unknown [id number] 2.16.84 0.1.489830.3.579.2.593 1946 Unknown [id number] 2.16.84 0.1.721621.3.579.2.593 1946 Unknown [id number] 2.16.84 0.1.386400.3.579.2.593 1946 Unknown [id number] 2.16.84 0.1.806297.3.579.2.593 1946 Unknown [id number] 2.16.84 0.1.704002.3.579.2.593 1946 Unknown [id number] 2.16.84 0.1.742353.3.579.2.593 1946 Unknown [id number] 2.16.84 0.1.430004.3.579.2.593 1946 Unknown [id number] 2.16.84 0.1.490804.3.579.2.593 1946 Unknown [id number] 2.16.84 0.1.068742.3.579.2.593 1946 Unknown [id number] 2.16.84 0.1.073353.3.579.2.593 1946 Unknown [id number] 2.16.84 0.1.107521.3.579.2.593 1946 Unknown [id number] 2.16.84 0.1.073943.3.579.2.593 1946 Unknown [id number] 2.16.84 0.1.731743.3.579.2.593 1946 Unknown [id number] 2.16.8 40.1.701493.3.579.2.727 1946 Unknown [id number] 2.16.8 40.1.831239.3.579.2.727 1946 Unknown [id number] 2.16.8 40.1.548104.3.579.2.727 1946 Unknown [id number] 2.16.8 40.1.905421.3.579.2.727 1946 Unknown [id number] 2.16.840 .1.510013.3.579.2.1259 1946 Unknown [id number] 2.16.840 .1.617892.3.579.2.1259 Unknown [id number] 2.16.8 40.1.218057.3.579.2.531 Unknown [id number] 2.16.8 40.1.619606.3.579.2.531 Social History Date Type Detail Facility Sex Assigned At [facility] Other Start: 02-03-2023 End: 03-26-2023 Tobacco smoking status Ex-smoker (finding) [facility] Tobacco smoking status Never [facility] Sex Assigned At Female [facility] Start: 1945 Sex Assigned At Female [facility] Clinical Note 02-21-2022 Note Date & Type Note Facility 02-21-2022 Note PROCEDURE: XR FOOT L T MIN 3 VIEWS COMPARISON: None. HISTORY: Pain in left foot FINDINGS: BONES:No acute fracture or dislocation. Mild enthesopathic spurring of the calcaneus. SOFT TISSUES:Negative. No visible soft tissue swelling. EFFUSION:None visible. OTHER: Negative. IMPRESSION: Mild enthesopathic spurring of the calcaneus Electronically authenticated by: BLANCA ZAVALA Date: 2022-02-21 07:28 [facility] Evaluation + Plan note Note Date & Type Note Facility Evaluation + Plan note Future Appointments Appointment Date:07/12/2024 10:45:00 AM Scheduled Provider:Williams SHEPHERD MD Location:[facility] Appointment Type:URO Office Visit [facility] Evaluation + Plan note Note Date & Type Note Facility Evaluation + Plan note Future Appointments Appointment Date:07/12/2024 10:45:00 AM Scheduled Provider:Williams SHEPHERD MD Location:[facility] Appointment Type:URO Office Visit Diagnostic Tests PendingCalculi Analysis Urinary 03/20/23 [facility] Evaluation note Note Date & Type Note Facility Evaluation note [facility] [employer] Other Evaluation note Note Date & Type Note Facility Evaluation note No assessment information availa [facility] Work Phone: History general Narrative - Reported Note Date & Type Note Facility History general Narrative - Reported [facility] [employer] Other Hospital course Narrative Note Date & Type Note Facility Hospital course Narrative No data available for this section [facility] Discharge instructions Note Date & Type Note Facility Hospital Discharge instructions No data available for this section [facility] Progress note Note Date & Type Note Facility Progress note No data available for this section [facility] Summary Purpose Family History No Family History Records Found Relationship Condition Age at Onset Recorded Date/T ramiro Not Specified Heart disease Unknown father Cystic fibrosis Unknown Advance Directives No Advanced Directives Records Found Advance Directive Response Recorded Date/ Time Advance Directives No May 06, 2017 4:21pm Chief Complaint and Reason for Visit Chief Complaint Kidney Stones Kidney Stones Additional Source Comments INFORMATION SOURCE (unrecogn ized section and content) DATE CREATED AUTHOR 12/20/2022 [facility] DATE CREATED AUTHOR AUTHOR'S ORGANIZ ATION 04/15/2023 [facility] DATE CREATED AUTHOR AUTHOR'S ORGANIZ ATION 06/09/2023 [facility] DATE CREATED AUTHOR AUTHOR'S ORGANIZ ATION 06/27/2023 [facility] EPIC Patient Care team informatio n (unrecognized section and content) Team Status: Active Member Role Status Dates Jayme Perez MD Primary Care Provider Active Team Status: Inactive Member Role Status Dates Jayme Perez MD Primary Care Provider Active Williams Shepherd MD Attending Provider Active Goals (unrecognized section and content) Goals may be documented in a n alternate section FOR RECORDS PERTAINING TO PATIENTS WHO ARE OR HAVE BEEN ENROLLED IN A CHEMICAL DEPENDENCY/SUBSTANCEABUSE PROGRAM, SOME INFORMATION MAY BE OMITTED. This clinical summary was aggregated from multiple sources. Caution should be exercised in using it in the provision of clinical care. This summary normalizes information from multiple sources, and as a consequence, information in this document may materially change the coding, format and clinical context of patient data. In addition, data may be omitted in some cases. CLINICAL DECISIONS SHOULD BE BASED ON THE PRIMARY CLINICAL RECORDS. [employer] [facility]. provides no warranty or guarantee of the accuracy or completeness of information in this document.
== END 2023-05-21 10:54 | disposition home or self-care (01) ==
LOC: LAB 10:54
PROVIDERS: PCP Family Medicine; Visit Provider Family Medicine
DX: I48.0 Paroxysmal atrial fibrillation (principal); Z79.01 Long term (current) use of anticoagulants; Z51.81 Encounter for therapeutic drug level monitoring
CPT/HCPCS: 36415; 85610

== ENCOUNTER 2023-06-23 10:23 | Outpatient (OUT) | payer MEDICARE, SELFPAY ==
[2023-06-23 11:09] LABS: INR 2.21; Prothrombin Time 22.4 sec (9.0-11.6)
== END 2023-06-23 10:24 | disposition home or self-care (01) ==
PROVIDERS: PCP Family Medicine; Visit Provider Family Medicine
DX: I48.0 Paroxysmal atrial fibrillation (principal); Z51.81 Encounter for therapeutic drug level monitoring; Z79.01 Long term (current) use of anticoagulants
CPT/HCPCS: 36415; 85610

== ENCOUNTER 2023-06-23 10:33 | Outpatient (OUT) | payer MEDICARE, SELFPAY ==
[2023-06-23 10:57] LABS: Basophils Percent Auto 0.7 % (0.2-2.0); Eosinophils Absolute Auto 0.4 10^3/uL (0.0-0.7); Eosinophils Percent Auto 6.2 % (0.9-7.0); Hematocrit 37.9 % (36.0-48.0); Hemoglobin 12.1 g/dL (12.0-16.0); Immature Granulocytes Abs Auto 0.04 10^3/uL (0.00-0.03); Immature Granulocytes Pct Auto 0.7 % (0.0-0.5); Lymphocytes Percent Auto 33.3 % (20.5-60.0); Mean Corpuscular HGB Conc 31.9 g/dL (29.9-35.2); Mean Corpuscular Hemoglobin 31.1 pg (26.7-34.0); Mean Corpuscular Volume 97.4 fL (81.0-99.0); Mean Platelet Volume 8.8 fL (9.5-13.5); Monocytes Absolute Auto 0.4 10^3/uL (0.3-0.8); Monocytes Percent Auto 6.7 % (1.7-12.0); Neutrophils Absolute Auto 3.2 10^3/uL (1.4-6.5); Neutrophils Percent Auto 52.4 % (43.0-75.0); Platelet Count 294 10^3/uL (150-450); Red Blood Count 3.89 10^6/uL (4.20-5.40); Red Cell Distribution Width 14.1 % (11.0-15.0); White Blood Count 6.1 10^3/uL (4.0-11.0)
[2023-06-23 11:02] LABS: Erythrocyte Sedimentation Rate 9 mm/hr (<=30)
[2023-06-23 12:03] LABS: Alanine Aminotransferase 22 U/L (14-59); Albumin Globulin Ratio 1.2; Albumin Level 3.6 g/dL (3.4-5.0); Alkaline Phosphatase 49 U/L (46-116); Anion Gap 10.9; Aspartate Amino Transferase 14 U/L (15-37); BUN Creatinine Ratio 11.8; Bilirubin Total 0.4 mg/dL (0.2-1.0); Carbon Dioxide 31.3 mmol/L (21.0-32.0); Chloride 106 mmol/L (98-107); Estimated GFR (African America >60 (>=60); Estimated GFR (Non-African Ame >60 (>=60); Globulin 2.9 g/dL; Glucose 140 mg/dL (74-106); Potassium 4.2 mmol/L (3.5-5.1); Sodium 144 mmol/L (136-145); Total Protein 6.5 g/dL (6.4-8.2)
== END 2023-06-23 10:34 | disposition home or self-care (01) ==
LOC: LAB 10:35
PROVIDERS: PCP Family Medicine; Visit Provider Internal Medicine Rheumatology
DX: L40.59 Other psoriatic arthropathy (principal); Z79.899 Other long term (current) drug therapy; Z51.81 Encounter for therapeutic drug level monitoring; Z79.01 Long term (current) use of anticoagulants; I48.0 Paroxysmal atrial fibrillation
CPT/HCPCS: 36415; 80053; 85025; 85610; 85652

== ENCOUNTER 2023-07-15 12:33 | Emergency (ER) | payer MEDICARE, SELFPAY ==
[2023-07-15] VITALS (8 sets, daily range): BP systolic 87–135; BP diastolic 58–69; PULSE 102–106; RESP 32; TEMP 36.7–37.1; O2SAT 98–99; BMI 24.3
--- OUTSIDE RECORDS SUMMARY | 2023-07-15 12:44 | XMS_ITS | CCD ---
Author Name Unknown Address [address] [place] [address] [facility] Care Team Providers Care Financial Services Associate Name Role Phone Astrid Baker Unavailable CAYETANO, [...] DR MCKINNEY Primary Care Unavailable HEMEYER, JAYME Hazel Primary Care Physician Unavail able Williams SHEPHERD Attending Unavailable Williams SHEPHERD Attending Unavailable Williams SHEPHERD Admitting Unavailable Williams SHEPHERD Attending Unavailable Williams SHEPHERD Attending Unavailable Williams SHEPHERD Attending Unavailable MD Jayme Perez Primary Care Provider MD Williams Shepherd Attending Provider Williams Shepherd Admitting Unavailable Williams Shepherd Attending Unavailable Jayme Perez Primary Care Unavailable Williams Shepherd Attending Unavailable HemeJayme england Primary Care Unavailable Williams Shepherd Admitting Unavailable FELICIA THORNTON Attending Unavailable FELICIA THORNTON Attending Unavailable FELICIA THORNTON Attending Unavailable FELICIA THORNTON Attending Unavailable Allergies Allergy Classification Reported Allergen(s) Allergy Type Date of Onset Reaction(s) Facility (5 sources) Ciprofloxacin; 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: [ciprofloxacin] Drug Allergy 03-26-20 23 anaphylaxis, Unknown (qualifier value) [facility] (1 source) sulfaSALAzine Drug Allergy rash STYLIGHT Other (1 source) Ciprofloxacin Drug Allergy 03-30-20 13 [facility] (2 sources) Ketorolac; 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: [Toradol] Drug Allergy 03-30-20 13 [facility] (1 source) metroNIDAZOLE Drug Allergy 03-30-20 13 [facility] (1 source) NSAIDs Drug allergy (disorder) 03-30-20 13 [facility] (1 source) pioglitazone Drug Allergy 03-30-20 [facility] (1 source) Sulfonamides (Antibiotic) Drug allergy (disorder) 03-30-20 [facility] (6 sources) Ketorolac; 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: [ketorolac] Drug Allergy 03-26-20 Unknown (qualifier value), Nausea (finding) [facility] Comment on above: Severe (5 sources) Latex; 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: [Latex] Drug allergy 03-26-20 Blister of skin AND/OR mucosa (finding) [facility] (3 sources) Non-steroidal anti-inflammatory agent; 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: [NSAIDs] Drug allergy Unknown (qualifier value) [facility] (4 sources) pioglitazone; 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: [pioglitazone] Drug Allergy 03-26-20 Unknown (qualifier value) [facility] (3 sources) Sulfonamides (Antibiotic); 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: [sulfa drugs] Drug allergy Unknown (qualifier value) [facility] (2 sources) metroNIDAZOLE; 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: [metronidazole] Drug Allergy 03-26-20 Redness of Skin [facility] (2 sources) Sulfonamides (Antibiotic); 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: [Sulfa (Sulfonamide Antibiotics)] Allergy to substance 03-26-20 Rash [facility] (2 sources) NSAIDS (Non-Steroidal Anti-Inflamma; 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: [NSAIDS (Non-Steroidal Anti-Inflamma] Allergy to substance 03-26-20 Anaphylaxis [facility] (1 source) Ciprofloxacin Drug Allergy 03-26-20 [facility] (1 source) Ketorolac Drug Allergy 03-26-20 [facility] (1 source) pioglitazone Drug Allergy 03-26-20 [facility] Repository Medications Current Medications Medication Drug Class(es) [...] Oral, q6hr Start Date: 02/03/23 Status: Ordered [id number] 200 actuat albuterol 0.09 mg/actuat metered dose [...] Date: 09/19/20 Status: Ordered Cyanocobalamin-Liver Extract (Vitamin E99-Pfatu) Tablet (1 source) Start: 03-26-2023 take 1 tablet by mouth once daily Cyanocobalamin-Liver Extract (Vitamin G37-Yenyt) Tablet Active 1 TAB PO every day [...] disorder 08-17-2019 Chronic Other aftercare (1 source) detention (current) use of anticoagulants; 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: [LABORER MINE CURRNT USE ANTICOAGULANTS] Onset: 12-11-2022 Episodic Other aftercare (5 sources) Encounter for therapeutic drug level monitoring; 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: [ENC THERAPEUTC DRUG LEVL MONITORING] Onset: 10-18-2022 Episodic Other aftercare (1 source) Other usp (current) drug therapy; 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: [OTH LABORER MINE CURRENT DRUG THERAPY] Onset: 10-31-2022 Episodic Other [...] Resolved: 05-21-2021 Episodic Other aftercare (1 source) detention (current) use of oral hypoglycemic drugs; 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: [GROUP HOME USE ORAL HYPOGLYCEMIC DX] Onset: 08-12-2022 Episodic Other aftercare (1 source) detention (current) use of insulin; 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: [GROUP HOME CURRENT USE OF INSULIN] Onset: 02-13-2022 Episodic Other connective tissue disease (4 sources) Pain in left foot; 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: [PAIN IN LEFT FOOT] Onset: 02-20-2022 Episodic Pneumonia (except that caused by tuberculosis or sexually transmitted disease) (1 source) Pneumonia, unspecified organism Onset: 05-21-2021 Resolved: 05-21-2021 Episodic Viral infection (1 source) COVID-19 Onset: 05-21-2021 Resolved: 05-21-2021 Results Test Name Value Interpretation Reference Range Facility Calculus Analysison 03-27-20 23 Calcium oxalate dihydrate Infrared spectroscopy (Stone) [Mass fraction] 100 % Invalid Interpretation Code [facility] Comment on above: Performed By: #### 1 [id number] #### [facility] [address] [place] [address] Color (Stone) Roper Invalid Interpretation Code [facility] Comment on above: Performed By: #### 1 [id number] #### [facility] [address] [place] [id number] Composition Comment Invalid Interpretation Code [facility] Comment on above: Result Comment: Perc entage (Represents the % composition) Performed By: #### 1 [id number] #### [facility] [address] [place] [id number] Disclaimer: Comment Invalid Interpretation Code [facility] Comment on above: Result Comment: This test was developed and its performance characteristics determined by [employer]. It has not been cleared or approved by the Food and Drug Administration. Performed at: [address] [id number] PhD Silvestre Esquivel Performed By: #### 1 [id number] #### [facility] [address] [place] [address] Laboratory comment Noam (Report) Comment Invalid Interpretation Code [facility] Comment on above: Result Comment: Coco goode questions regarding Calculi Analysis contact [facility] at: [phone]. Performed By: #### 1 [id number] #### [facility] [address] [place] [address] Please Note: Comment Invalid Interpretation Code [facility] Comment on above: Result Comment: Calc javier report will follow via computer, mail or asphalt spreader operator delivery. Performed By: #### 1 [id number] #### [facility] [address] [place] [address] Size (Stone) [Entitic vol] 6x4 Invalid Interpretation Code [facility] Comment on above: Result Comment: Sing le piece received. Performed By: #### 1 [id number] #### [facility] [address] [place] [address] Specimen source subject Nom Comment Invalid Interpretation Code [facility] Comment on above: Result Comment: Not provided Performed By: #### 1 [id number] #### [facility] [address] [place] [address] Stone Photo Comment Invalid Interpretation Code [facility] Comment on above: Result Comment: Phot ograph will follow under a separate cover Performed By: #### 1 [id number] #### [facility] [address] [place] [address] Weight (Stone) 49 mg Invalid Interpretation Code [facility] Comment on above: Performed By: #### 1 [id number] #### [facility] [address] [place] [address] Lab Reportson 03-27-2023 Lab Reports [id number]:127 Normal [facility] Activated partial thrombopla stin time (aPTT) in platelet poor plasma by coagulation aOrdered By: Williams Shepherd on 03-26-2023 aPTT Coag (PPP) [Time] 35.9 s 25.1-36.5 [facility] Comment on above: A hematocrit value g reater than 55% may lead to inaccurate results in coagulation testing. Patients having hematocrit values >55% require a special collection tube for coagulation studies. Please contact the laboratory at [phone] for redraw instructions. Basic Metabolic Panelon 03-14 Anion gap [Moles/Vol] 13.0 mmol/L Normal 6.0-15.0 [facility] Comment on above: Performed By: #### P T, BMP, CBC, PTT #### [facility] [address] Calcium [Mass/Vol] 10.0 mg/dL Normal 8.6-10.3 [facility] Comment on above: Result Comment: PERF ORMED BY: [place] [address] PATHOLOGIST [employer] BERNIE GRAYSON M.D. Performed By: #### P T, BMP, CBC, PTT #### [address] Chloride [Moles/Vol] 104 mmol/L Normal 98-107 [facility] Comment on above: Performed By: #### P T, BMP, CBC, PTT #### [facility] [address] [place] [address] [place] CO2 [Moles/Vol] 30.0 mmol/L Normal 21.0-31.0 [facility] Comment on above: Performed By: #### P T, BMP, CBC, PTT #### [place] [address] [place] Creatinine [Mass/Vol] 0.85 mg/dL Normal 0.60-1.20 [facility] Comment on above: Performed By: #### P T, BMP, CBC, PTT #### [facility] [address] [place] [id number] [place] GFR/1.73 sq M.predicted MDRD (S/P/Bld) [Vol rate/Area] mL/min/{1.73_m2} Normal [facility] Comment on above: Performed By: #### P T, BMP, CBC, PTT #### [facility] [address] [place] [address] [place] Glucose [Mass/Vol] 111 mg/dL High 70-100 [facility] Comment on above: Result Comment: [place] Glucose Reference Range is dependent on time and content of last meal. Glucose of more than 200 mg/dL in a nonstressed, ambulatory subject supports the diagnosis of Diabetes Mellitus. ADA recommended reference range Performed By: #### P T, BMP, CBC, PTT #### [facility] [address] Potassium [Moles/Vol] 5.0 mmol/L Normal 3.5-5.1 [facility] Comment on above: Performed By: #### P T, BMP, CBC, PTT #### [facility] [address] Sodium [Moles/Vol] 142 mmol/L Normal 136-145 [facility] Comment on above: Performed By: #### P T, BMP, CBC, PTT #### [facility] [address] Urea nitrogen [Mass/Vol] 12 mg/dL Normal 7-25 [facility] Comment on above: Performed By: #### P T, BMP, CBC, PTT #### [facility] [address] Basophils Auto (Bld) [#/Vol] Ordered By: Williams Shepherd on 03-26-2023 Basophils (Bld) [#/Vol] 0.0 10*3/uL 0.0-0.2 [facility] Basophils/100 WBC Auto (Bld) Ordered By: Williams Shepherd on 03-26-2023 Basophils/100 WBC (Bld) 0.8 % . [facility] Calcium [Mass/volume] in Ser um or PlasmaOrdered By: Williams Shepherd on 03-26-2023 Calcium [Mass/Vol] 10.0 mg/dL 8.6-10.3 [facility] Carbon dioxide, total [Moles /volume] in Serum or PlasmaOrdered By: Williams Shepherd on 03-26-2023 CO2 [Moles/Vol] 30.0 mmol/L 21.0-31.0 [facility] Chloride [Moles/volume] in S fartun or PlasmaOrdered By: Williams Shepherd on 03-26-2023 Chloride [Moles/Vol] 104 mmol/L 98-107 [facility] Complete Blood Count Auto Di ffon 03-26-2023 Basophils (Bld) [#/Vol] 0.0 10*3/uL Normal 0.0-0.2 [facility] Comment on above: Result Comment: PERF ORMED BY: [place] [address] PATHOLOGIST [employer] BERNIE GRAYSON M.D. Performed By: #### P T, BMP, CBC, PTT #### [facility] [address] Basophils/100 WBC (Bld) 0.8 % Normal . [facility] Comment on above: Performed By: #### P T, BMP, CBC, PTT #### [facility] [address] Eosinophils (Bld) [#/Vol] 0.3 10*3/uL Normal 0.0-0.45 [facility] Comment on above: Performed By: #### P T, BMP, CBC, PTT #### [facility] [address] Eosinophils/100 WBC (Bld) 4.3 % Normal . [facility] Comment on above: Performed By: #### P T, BMP, CBC, PTT #### [facility] [address] Erythrocyte distribution width (RBC) [Ratio] 14.8 % Normal 11.9-15.3 [facility] Comment on above: Performed By: #### P T, BMP, CBC, PTT #### [facility] [address] [place] [address] [place] Hematocrit (Bld) [Volume fraction] 40.3 % Normal 34.0-46.4 [facility] Comment on above: Performed By: #### P T, BMP, CBC, PTT #### [facility] [address] Hemoglobin (Bld) [Mass/Vol] 13.3 g/dL Normal 11.8-15.4 [facility] Comment on above: Performed By: #### P T, BMP, CBC, PTT #### [address] Lymphocytes (Bld) [#/Vol] 2.2 10*3/uL Normal 1.00-4.8 [facility] Comment on above: Performed By: #### P T, BMP, CBC, PTT #### [address] Lymphocytes/100 WBC (Bld) 36.9 % Normal . [facility] Comment on above: Performed By: #### P T, BMP, CBC, PTT #### [address] MCH (RBC) [Entitic mass] 31.1 pg Normal 24.7-34.3 [facility] Comment on above: Performed By: #### P T, BMP, CBC, PTT #### [address] MCV (RBC) [Entitic vol] 94.4 fL Normal 80-100 [facility] Comment on above: Performed By: #### P T, BMP, CBC, PTT #### [address] Mean Corpuscular HGB Conc 32.9 g/dL Normal 32.0-35.0 [facility] Comment on above: Performed By: #### P T, BMP, CBC, PTT #### [address] Monocytes (Bld) [#/Vol] 0.5 10*3/uL Normal 0.0-0.8 [facility] Comment on above: Performed By: #### P T, BMP, CBC, PTT #### [address] Monocytes/100 WBC (Bld) 7.8 % Normal . [facility] Comment on above: Performed By: #### P T, BMP, CBC, PTT #### [address] Neutrophils (Bld) [#/Vol] 3.0 10*3/uL Normal 1.8-7.7 [facility] Comment on above: Performed By: #### P T, BMP, CBC, PTT #### [facility] [address] Neutrophils/100 WBC (Bld) 50.2 % Normal . [facility] Comment on above: Performed By: #### P T, BMP, CBC, PTT #### [facility] [address] NRBC% 0.3 /100{WBC} Normal 0-0.5 [facility] Comment on above: Performed By: #### P T, BMP, CBC, PTT #### [address] Platelet mean volume (Bld) [Entitic vol] 7.1 fL Normal 6.3-10.7 [facility] Comment on above: Performed By: #### P T, BMP, CBC, PTT #### [address] Platelets (Bld) [#/Vol] 363 10*3/uL Normal 150-450 [facility] Comment on above: Performed By: #### P T, BMP, CBC, PTT #### [address] RBC (Bld) [#/Vol] 4.27 10*6/uL Normal 3.60-5.00 [facility] Comment on above: Performed By: #### P T, BMP, CBC, PTT #### [place] [address] [place] WBC (Bld) [#/Vol] 5.9 10*3/uL Normal 3.8-11.6 [facility] Comment on above: Performed By: #### P T, BMP, CBC, PTT #### [place] [address] [place] Creatinine [Mass/volume] in Serum or PlasmaOrdered By: Williams Shepherd on 03-26-2023 Creatinine [Mass/Vol] 0.85 mg/dL 0.60-1.20 [facility] ECG 12 lead ECGon 03-26-2023 ECG 12 lead ECG [facility] [place] [address] Electrocardiograph Report Signed Patient: Wilda Sen MR#: [id number] 8 : 1945 Acct:[id number] Age/Sex: 77 / F ADM Date: 03/26/23 Loc: Room: Type: [facility] Attending Dr: Williams Shepherd MD Ordering Provider: [...] By Maru Whitehead DO 03/26 190 Normal [facility] Eosinophils Auto (Bld) [#/Vo l]Ordered By: Williams Shepherd on 03-26-2023 Eosinophils (Bld) [#/Vol] 0.3 10*3/uL 0.0-0.45 [facility] Eosinophils/100 WBC Auto (Bl d)Ordered By: Williams Shepherd on 03-26-2023 Eosinophils/100 WBC (Bld) 4.3 % . [facility] Erythrocyte distribution wid th Auto (RBC) [Ratio]Ordered By: Williams Shepherd on 03-26-2023 Erythrocyte distribution width (RBC) [Ratio] 14.8 % 11.9-15.3 [facility] Glucose [Mass/volume] in Ser um or PlasmaOrdered By: Williams Shepherd on 03-26-2023 Glucose [Mass/Vol] 111 mg/dL 70-100 [facility] Comment on above: ADA recommended refe rence rangeRandom Glucose Reference Range is dependent on time and content of last meal. Glucose of more than 200 mg/dL in a nonstressed, ambulatory subject supports the diagnosis of Diabetes Mellitus. Hematocrit Auto (Bld) [Volum e fraction]Ordered By: Williams Shepherd on 03-26-2023 Hematocrit (Bld) [Volume fraction] 40.3 % 34.0-46.4 [facility] Hemoglobin [Mass/volume] in BloodOrdered By: Williams Shepherd on 03-26-2023 Hemoglobin (Bld) [Mass/Vol] 13.3 g/dL 11.8-15.4 [facility] INR in Platelet poor plasma by Coagulation assayOrdered By: Williams Shepherd on 03-26-2023 INR Coag (PPP) [Relative time] 2.3 {INR} [facility] Comment on above: INR Therapeutic Rang e [...] on 03-26-2023 WBC corrected for nucl RBC Auto (Bld) [#/Vol] 5.9 10*3/uL 3.8-11.6 [facility] Lymphocytes Auto (Bld) [#/Vo l]Ordered By: Williams Shepherd on 03-26-2023 Lymphocytes (Bld) [#/Vol] 2.2 10*3/uL 1.00-4.8 [facility] Lymphocytes/100 WBC Auto (Bl d)Ordered By: Williams Shepherd on 03-26-2023 Lymphocytes/100 WBC (Bld) 36.9 % . [facility] MCH Auto (RBC) [Entitic mass ]Ordered By: Williams Shepherd on 03-26-2023 MCH (RBC) [Entitic mass] 31.1 pg 24.7-34.3 [facility] MCHC Auto (RBC) [Mass/Vol]Or dered By: Williams Shepherd on 03-26-2023 MCHC (RBC) [Mass/Vol] 32.9 g/dL 32.0-35.0 [facility] MCV Auto (RBC) [Entitic vol] Ordered By: Williams Shepherd on 03-26-2023 MCV (RBC) [Entitic vol] 94.4 fL 80-100 [facility] Monocytes Auto (Bld) [#/Vol] Ordered By: Williams Shepherd on 03-26-2023 Monocytes (Bld) [#/Vol] 0.5 10*3/uL 0.0-0.8 [facility] Monocytes/100 WBC Auto (Bld) Ordered By: Williams Shepherd on 03-26-2023 Monocytes/100 WBC (Bld) 7.8 % . [facility] Neutrophils Auto (Bld) [#/Vo l]Ordered By: Williams Shepherd on 03-26-2023 Neutrophils (Bld) [#/Vol] 3.0 10*3/uL 1.8-7.7 [facility] Neutrophils/100 WBC Auto (Bl d)Ordered By: Williams Shepherd on 03-26-2023 Neutrophils/100 WBC (Bld) 50.2 % . [facility] No Panel InformationOrdered By: Williams Shepherd on 03-26-2023 Estimated GFR (CKD-EPI) > 60.0 mL/Min [facility]acy Creatinine Clearance (Chem N/A [facility] Nucleated erythrocytes [Pres ence] in Blood by Automated countOrdered By: Williams Shepherd on 03-26-2023 Nucleated RBC Auto Ql (Bld) 0.3 /100{WBC} 0-0.5 [facility] Partial Thromboplastin Timeo n 03-26-2023 aPTT Coag (Bld) [Time] 35.9 s Normal 25.1-36.5 [facility] Comment on above: Result Comment: A he matocrit value greater than 55% may lead to inaccurate results in coagulation testing. Patients having hematocrit values >55% require a special collection tube for coagulation studies. Please contact the laboratory at [phone] for redraw instructions. PERFORMED BY: [facility] [address] [place] [id number] PATHOLOGIST [employer] BERNIE GRAYSON M.D. Performed By: #### P T, BMP, CBC, PTT #### [facility] [address] Platelet mean volume Auto (B ld) [Entitic vol]Ordered By: Williams Shepherd on 03-26-2023 Platelet mean volume (Bld) [Entitic vol] 7.1 fL 6.3-10.7 [facility] Platelets Auto (Bld) [#/Vol] Ordered By: Williams Shepherd on 03-26-2023 Platelets (Bld) [#/Vol] 363 10*3/uL 150-450 [facility] Potassium [Moles/volume] in Serum or PlasmaOrdered By: Williams Shepherd on 03-26-2023 Potassium [Moles/Vol] 5.0 mmol/L 3.5-5.1 [facility] Prothrombin Time INRon 03-26 INR Coag (PPP) [Relative time] 2.3 {INR} Normal [facility] Comment on above: Result Comment: INR Therapeutic [...] #### P T, BMP, CBC, PTT #### [facility] [address] PT Coag (PPP) [Time] 26.6 s High 9.0-12.9 [facility] Comment on above: Result Comment: A he matocrit value greater than 55% may lead to inaccurate results in coagulation testing. Patients having hematocrit values >55% require a special collection tube for coagulation studies. Please contact the laboratory at [phone] for redraw instructions. Performed By: #### P T, BMP, CBC, PTT #### [facility] [address] [place] [id number] [facility] Prothrombin time (PT)Ordered By: Williams Shepherd on 03-26-2023 PT Coag (PPP) [Time] 26.6 s 9.0-12.9 [facility] Comment on above: A hematocrit value g reater than 55% may lead to inaccurate results in coagulation testing. Patients having hematocrit values >55% require a special collection tube for coagulation studies. Please contact the laboratory at [phone] for redraw instructions. RBC Auto (Bld) [#/Vol]Ordere d By: Williams Shepherd on 03-26-2023 RBC (Bld) [#/Vol] 4.27 10*6/uL 3.60-5.00 [facility] Serum or plasma anion gap de terminationOrdered By: Williams Shepherd on 03-26-2023 Anion gap [Moles/Vol] 13.0 mmol/L 6.0-15.0 [facility] Sodium [Moles/volume] in Ser um or PlasmaOrdered By: Williams Shepherd on 03-26-2023 Sodium [Moles/Vol] 142 mmol/L 136-145 [facility] Urea nitrogen [Mass/volume] in Serum or PlasmaOrdered By: Williams Shepherd on 03-26-2023 Urea nitrogen [Mass/Vol] 12 mg/dL 7-25 [facility] WBC Auto (Bld) [#/Vol]Ordere d By: Williams Shepherd on 03-26-2023 WBC (Bld) [#/Vol] 5.9 10*3/uL 3.8-11.6 [facility] Consultation Noteon 03-17-20 Consultation Note [id number]:12 7 Normal [facility] Lab Reportson 02-12-2023 Lab Reports [id number]:12 7 Normal [facility] RAD - MISCon 02-12-2023 RAD - MISC [id number]#[id number]:12 7 [facility] RAD - CT Reporton 02-05-2023 RAD - CT Report [id number]:12 7 Normal [facility] RAD - MISCon 02-05-2023 RAD - MISC [id number]:12 7 Normal [facility] Ambulatory Visit Summaryon 0 02-03-2023 Ambulatory Visit [...] AGUIAR, Williams Venegas Where: [facility] Floyd [facility] Patient Educationon 02-04-20 Patient Education Urology Kidney [...] these instructions at home: Medicines ? Take eqvw-apr-ingmyls and prescription medicines only as told by [...] follow (more content not included)... Normal [facility] Urology Office/Clinic Noteon 02-03-2023 Urology Office/Clinic Note Chief Complaint 16 month follow up w/ CT scan HPI Staff Pt is here today for 16 month follow up w/ CT scan done @[facility] on 01/15/23. CT scan shows partially [...] MD, URL [address] [id number]- Additional Instructions: Patient Education Kidney Stones I, Fanny Bowen, personally scribed for Dr. Shepherd on 02/03/2023 12:04:03. . Documentation recorded by the scribe, Fanny Bowen, accurately reflects the services(s) I performed and decisions made by me. Authenticated by Dr. Shepherd on 02/03/2023 12:37:35. Portions of this record may have been created with voice recognition artificial intelligence software, specifically [employer], [employer] and or [employer]. Substitutions may have occurred due to the inherent limitations of voice recognition and artificial intelligence software. Problem List/Past Medical History Ongoing Abdominal pain Anticoagulated Anxiety BMI 27.0-27.9,adult Depression Diabetes Former smoker Frequent urination Heart murmur History of uterine cancer Hx of usp use of blood thin (more content not included)... Normal [facility] Comment on above: Result Comment: Elec tronically Signed By: Williams SHEPHERD MD\.br\Date and Time Signed: 02/03/23 12:39 EDT\.br\Electronically Co-Signed By: Fanny Bowen\.br\Date and Time Co-Signed: 02/03/23 12:04 EDT PROTIMEon 12-02-2022 INR Coag (PPP) [Relative time] 3.62 {INR} Normal [facility] Comment on above: Performed By: #### P T #### [facility] [address] [address] [address] Tg Fierro INR GUIDELINES SEE BELOW Normal [facility] Comment on above: Result Comment: LAURENCE RED INR: 2.0 - 3.0 CONDITIONS NOT LISTED BELOW 2.5 - 3.5 FOR PROSTHETIC HEART VALVE REPLACEMENT 2.5 - 3.5 RECURRENT THROMBOSIS Performed By: #### P T #### [facility] [address] [address] [address] Tg Fierro PT Coag (PPP) [Time] 35.7 s Critically high 9.0-11.6 [facility] Comment on above: Performed By: #### P T #### [facility] [address] [place] [address] Dr. Tg Fierro PROTIMEon 11-11-2022 INR Coag (PPP) [Relative time] 1.90 {INR} Normal [facility] Comment on above: Performed By: #### P T #### [facility] [address] [place] [address] Dr. Tg Fierro INR GUIDELINES SEE BELOW Normal [facility] Comment on above: Result Comment: LAURENCE RED INR: 2.0 - 3.0 CONDITIONS NOT LISTED BELOW 2.5 - 3.5 FOR PROSTHETIC HEART VALVE REPLACEMENT 2.5 - 3.5 RECURRENT THROMBOSIS Performed By: #### P T #### [facility] [address] [place] [address] Dr. Tg Fierro PT Coag (PPP) [Time] 19.4 s Critically high 9.0-11.6 [facility] Comment on above: Performed By: #### P T #### [facility] [address] [place] [address] Dr. Tg Fierro CBC AUTO DIFFon 10-25-2022 BASO # 0.0 103/ul Normal 0.0-0.1 [facility] Comment on above: Performed By: #### P T #### [facility] [address] [place] [address] Dr. Tg Fierro Basophils/100 WBC (Bld) 0.5 % Normal 0.2-2.0 [facility] Comment on above: Performed By: #### P T #### [facility] [address] [place] [address] Dr. Tg Fierro EO # 0.2 103/ul Normal 0.0-0.7 [facility] Comment on above: Performed By: #### P T #### [facility] [address] [place] [address] Dr. Tg Fierro Eosinophils/100 WBC (Bld) 2.7 % Normal 0.9-7.0 [facility] Comment on above: Performed By: #### P T #### [facility] [address] [place] [address] Dr. Tg Fierro Erythrocyte distribution width (RBC) [Ratio] 13.4 % Normal 11.0-15.0 [facility] Comment on above: Performed By: #### P T #### [facility] [address] [place] [address] Dr. Tg Fierro Hematocrit (Bld) [Volume fraction] 40.7 % Normal 36.0-48.0 [facility] Comment on above: Performed By: #### P T #### [facility] [address] [place] [address] Dr. Tg Fierro Hemoglobin (Bld) [Mass/Vol] 13.2 g/dL Normal 12.0-16.0 [facility] Comment on above: Performed By: #### P T #### [facility] [address] [place] [address] Dr. Tg Fierro IG # 0.03 10e3/ul Normal 0.00-0.03 [facility] Comment on above: Performed By: #### P T #### [facility] [address] [place] [address] Dr. Tg Fierro IG % 0.5 % Normal 0.0-0.5 [facility] Comment on above: Performed By: #### P T #### [facility] [address] [place] [address] Dr. Tg Fierro LYMPH # 2.1 103/ul Normal 1.2-3.8 [facility] Comment on above: Performed By: #### P T #### [facility] [address] [place] [address] Dr. Tg Fierro Lymphocytes/100 WBC (Bld) 34.9 % Normal 20.5-60.0 [facility] Comment on above: Performed By: #### P T #### [facility] [address] [place] [address] Dr. Tg Fierro MANUAL DIFF REQ NO Normal [facility] Comment on above: Performed By: #### P T #### [facility] [address] [address] [address] Tg Fierro MCH (RBC) [Entitic mass] 30.5 pg Normal 26.7-34.0 [facility] Comment on above: Performed By: #### P T #### [facility] [address] [place] [address] Dr. Tg Fierro MCHC (RBC) [Mass/Vol] 32.4 g/dL Normal 29.9-35.2 [facility] Comment on above: Performed By: #### P T #### [facility] [address] [place] [address] Dr. Tg Fierro MCV (RBC) [Entitic vol] 94.0 fL Normal 81.0-99.0 [facility] Comment on above: Performed By: #### P T #### [facility] [address] [place] [address] Dr. Tg Fierro MONO # 0.4 103/ul Normal 0.3-0.8 [facility] Comment on above: Performed By: #### P T #### [facility] [address] [place] [address] Dr. Tg Fierro Monocytes/100 WBC (Bld) 7.1 % Normal 1.7-12.0 [facility] Comment on above: Performed By: #### P T #### [facility] [address] [place] [address] Dr. Tg Fierro NEUT # 3.2 103/ul Normal 1.4-6.5 [facility] Comment on above: Performed By: #### P T #### [facility] [address] [place] [address] Dr. Tg Fierro Neutrophils/100 WBC (Bld) 54.3 % Normal 43.0-75.0 [facility] Comment on above: Performed By: #### P T #### [facility] [address] [place] [address] Dr. Tg Fierro Platelet mean volume (Bld) [Entitic vol] 8.7 fL Critically low 9.5-13.5 [facility] Comment on above: Performed By: #### P T #### [facility] [address] [place] [address] Dr. Tg Fierro PLT 295 103/ul Normal 150-450 [facility] Comment on above: Performed By: #### P T #### [facility] [address] [place] [address] Dr. Tg Fierro RBC 4.33 106/ul Normal 4.20-5.40 [facility] Comment on above: Performed By: #### P T #### [facility] [address] [place] [address] Dr. Tg Fierro WBC 5.9 103/ul Normal 4.0-11.0 [facility] Comment on above: Performed By: #### P T #### [facility] [address] [place] [address] Dr. Tg Fierro PROF 14(COMP METB)on 023 Albumin [Mass/Vol] 3.8 g/dL Normal 3.4-5.0 [facility] Comment on above: Performed By: #### C MP #### [facility] [address] [place] [address] Dr. Tg Fierro Albumin/Globulin [Mass ratio] 1.2 {ratio} Normal [facility] Comment on above: Performed By: #### C MP #### [facility] [address] [place] [address] Dr. Tg Fierro ALP [Catalytic activity/Vol] 49 U/L Normal 46-116 [facility] Comment on above: Performed By: #### C MP #### [facility] [address] [place] [address] Dr. Tg Fierro ALT [Catalytic activity/Vol] 21 U/L Normal 14-59 [facility] Comment on above: Performed By: #### C MP #### [facility] [address] [place] [address] Dr. Tg Fierro Anion gap [Moles/Vol] 13.3 mmol/L Normal [facility] Comment on above: Performed By: #### C MP #### [facility] [address] [place] [address] Dr. Tg Fierro AST [Catalytic activity/Vol] 14 U/L Critically low 15-37 [facility] Comment on above: Performed By: #### C MP #### [facility] [address] [address] [address] Tg Fierro Bilirubin [Mass/Vol] 0.5 mg/dL Normal 0.2-1.0 [facility] Comment on above: Performed By: #### C MP #### [facility] [address] [address] [address] Tg Fierro Calcium [Mass/Vol] 9.5 mg/dL Normal 8.5-10.1 [facility] Comment on above: Performed By: #### C MP #### [facility] [address] [address] [address] Tg Fierro Chloride [Moles/Vol] 104 mmol/L Normal 98-107 [facility] Comment on above: Performed By: #### C MP #### [facility] [address] [address] [address] Tg Fierro CO2 [Moles/Vol] 29.3 mmol/L Normal 21.0-32.0 [facility] Comment on above: Performed By: #### C MP #### [facility] [address] [address] [address] Tg Fierro Creatinine [Mass/Vol] 0.93 mg/dL Normal 0.55-1.02 [facility] Comment on above: Performed By: #### C MP #### [facility] [address] [address] [address] Tg Fierro EGFR-AF CYMRAES >60 Normal >=60 [facility] Comment on above: Performed By: #### C MP #### [facility] [address] [address] [address] Tg Fierro EGFR-NON AF CYMRAES 59 mL/min/1.73m2 Critically low >=60 [facility] Comment on above: Performed By: #### C MP #### [facility] [address] [address] [address] Tg Fierro Globulin (S) [Mass/Vol] 3.2 g/dL Normal [facility] Comment on above: Performed By: #### C MP #### [facility] [address] [address] [address] Tg Fierro Glucose [Mass/Vol] 186 mg/dL Critically high 74-106 [facility] Comment on above: Performed By: #### C MP #### [facility] [address] [address] [address] Tg Fierro Potassium [Moles/Vol] 4.6 mmol/L Normal 3.5-5.1 [facility] Comment on above: Performed By: #### C MP #### [facility] [address] [address] [address] Tg Fierro Protein [Mass/Vol] 7.0 g/dL Normal 6.4-8.2 [facility] Comment on above: Performed By: #### C MP #### [facility] [address] [address] [address] Tg Fierro Sodium [Moles/Vol] 142 mmol/L Normal 136-145 [facility] Comment on above: Performed By: #### C MP #### [facility] [address] [address] [address] Tg Fierro Urea nitrogen [Mass/Vol] 15.0 mg/dL Normal 7.0-18.0 [facility] Comment on above: Performed By: #### C MP #### [facility] [address] [address] [address] Tg Fierro Urea nitrogen/Creatinine [Mass ratio] 16.1 mg/mg Normal [facility] Comment on above: Performed By: #### C MP #### [facility] [address] [address] [address] Tg Fierro SED RATE [facility] 2022 SED RATE 9 mm/hr Normal <=30 [facility] Comment on above: Performed By: #### C MP #### [facility] [address] [address] [address] Tg Fierro PROTIMEon 10-14-2022 INR Coag (PPP) [Relative time] 1.94 {INR} Normal [facility] Comment on above: Performed By: #### P T #### [facility] [address] [place] [address] Dr. Tg Fierro INR GUIDELINES SEE BELOW Normal [facility] Comment on above: Result Comment: LAURENCE RED INR: 2.0 - 3.0 CONDITIONS NOT LISTED BELOW 2.5 - 3.5 FOR PROSTHETIC HEART VALVE REPLACEMENT 2.5 - 3.5 RECURRENT THROMBOSIS Performed By: #### P T #### [facility] [address] [place] [address] Dr. Tg Fierro PT Coag (PPP) [Time] 19.8 s Critically high 9.0-11.6 [facility] Comment on above: Performed By: #### P T #### [facility] [address] [place] [address] Dr. Tg Fierro CBC AUTO DIFFon 09-24-2022 BASO # 0.1 103/ul Normal 0.0-0.1 [facility] Comment on above: Performed By: #### P T #### [facility] [address] [place] [address] Dr. Tg Fierro Basophils/100 WBC (Bld) 0.7 % Normal 0.2-2.0 [facility] Comment on above: Performed By: #### P T #### [facility] [address] [place] [address] Dr. Tg Fierro EO # 0.3 103/ul Normal 0.0-0.7 [facility] Comment on above: Performed By: #### P T #### [facility] [address] [place] [address] Dr. Tg Fierro Eosinophils/100 WBC (Bld) 3.6 % Normal 0.9-7.0 [facility] Comment on above: Performed By: #### P T #### [facility] [address] [place] [address] Dr. Tg Fierro Erythrocyte distribution width (RBC) [Ratio] 13.4 % Normal 11.0-15.0 [facility] Comment on above: Performed By: #### P T #### [facility] [address] [address] [address] Tg Fierro Hematocrit (Bld) [Volume fraction] 38.4 % Normal 36.0-48.0 [facility] Comment on above: Performed By: #### P T #### [facility] [address] [address] [address] Tg Fierro Hemoglobin (Bld) [Mass/Vol] 12.7 g/dL Normal 12.0-16.0 [facility] Comment on above: Performed By: #### P T #### [facility] [address] [address] [address] Tg Fierro IG # 0.05 10e3/ul Critically high 0.00-0.03 [facility] Comment on above: Performed By: #### P T #### [facility] [address] [place] [address] Dr. Tg Fierro IG % 0.7 % Critically high 0.0-0.5 [facility] Comment on above: Performed By: #### P T #### [facility] [address] [place] [address] Dr. Tg Fierro LYMPH # 2.6 103/ul Normal 1.2-3.8 [facility] Comment on above: Performed By: #### P T #### [facility] [address] [place] [address] Dr. Tg Fierro Lymphocytes/100 WBC (Bld) 34.2 % Normal 20.5-60.0 [facility] Comment on above: Performed By: #### P T #### [facility] [address] [place] [address] Dr. Tg Fierro MANUAL DIFF REQ NO Normal [facility] Comment on above: Performed By: #### P T #### [facility] [address] [place] [address] Dr. Tg Fierro MCH (RBC) [Entitic mass] 31.2 pg Normal 26.7-34.0 [facility] Comment on above: Performed By: #### P T #### [facility] [address] [place] [address] Dr. Tg Fierro MCHC (RBC) [Mass/Vol] 33.1 g/dL Normal 29.9-35.2 [facility] Comment on above: Performed By: #### P T #### [facility] [address] [place] [address] Dr. Tg Fierro MCV (RBC) [Entitic vol] 94.3 fL Normal 81.0-99.0 [facility] Comment on above: Performed By: #### P T #### [facility] [address] [place] [address] Dr. Tg Fierro MONO # 0.6 103/ul Normal 0.3-0.8 [facility] Comment on above: Performed By: #### P T #### [facility] [address] [place] [address] Dr. Tg Fierro Monocytes/100 WBC (Bld) 8.1 % Normal 1.7-12.0 [facility] Comment on above: Performed By: #### P T #### [facility] [address] [place] [address] Dr. Tg Fierro NEUT # 4.1 103/ul Normal 1.4-6.5 [facility] Comment on above: Performed By: #### P T #### [facility] [address] [place] [address] Dr. Tg Fierro Neutrophils/100 WBC (Bld) 52.7 % Normal 43.0-75.0 [facility] Comment on above: Performed By: #### P T #### [facility] [address] [place] [address] Dr. Tg Fierro Platelet mean volume (Bld) [Entitic vol] 8.7 fL Critically low 9.5-13.5 [facility] Comment on above: Performed By: #### P T #### [facility] [address] [place] [address] Dr. Tg Fierro PLT 278 103/ul Normal 150-450 [facility] Comment on above: Performed By: #### P T #### [facility] [address] [place] [address] Dr. Tg Fierro RBC 4.07 106/ul Critically low 4.20-5.40 [facility] Comment on above: Performed By: #### P T #### [facility] [address] [place] [address] Dr. Tg Fierro WBC 7.7 103/ul Normal 4.0-11.0 [facility] Comment on above: Performed By: #### P T #### [facility] [address] [place] [address] Dr. Tg Fierro PROF 14(COMP METB)on 023 Albumin [Mass/Vol] 3.9 g/dL Normal 3.4-5.0 [facility] Comment on above: Performed By: #### C MP #### [facility] [address] [place] [address] Dr. Tg Fierro Albumin/Globulin [Mass ratio] 1.4 {ratio} Normal [facility] Comment on above: Performed By: #### C MP #### [facility] [address] [place] [address] Dr. Tg Fierro ALP [Catalytic activity/Vol] 59 U/L Normal 46-116 [facility] Comment on above: Performed By: #### C MP #### [facility] [address] [place] [address] Dr. Tg Fierro ALT [Catalytic activity/Vol] 21 U/L Normal 14-59 [facility] Comment on above: Performed By: #### C MP #### [facility] [address] [place] [address] Dr. Tg Fierro Anion gap [Moles/Vol] 10.8 mmol/L Normal [facility] Comment on above: Performed By: #### C MP #### [facility] [address] [place] [address] Dr. Tg Fierro AST [Catalytic activity/Vol] 9 U/L Critically low 15-37 [facility] Comment on above: Performed By: #### C MP #### [facility] [address] [place] [address] Dr. Tg Fierro Bilirubin [Mass/Vol] 0.3 mg/dL Normal 0.2-1.0 [facility] Comment on above: Performed By: #### C MP #### [facility] [address] [address] [address] Tg Fierro Calcium [Mass/Vol] 9.1 mg/dL Normal 8.5-10.1 [facility] Comment on above: Performed By: #### C MP #### [facility] [address] [address] [address] Tg Fierro Chloride [Moles/Vol] 104 mmol/L Normal 98-107 [facility] Comment on above: Performed By: #### C MP #### [facility] [address] [place] [address] Dr. Tg Fierro CO2 [Moles/Vol] 28.3 mmol/L Normal 21.0-32.0 [facility] Comment on above: Performed By: #### C MP #### [facility] [address] [place] [address] Dr. Tg Fierro Creatinine [Mass/Vol] 0.86 mg/dL Normal 0.55-1.02 [facility] Comment on above: Performed By: #### C MP #### [facility] [address] [place] [address] Dr. Tg Fierro EGFR-AF CYMRAES >60 Normal >=60 [facility] Comment on above: Performed By: #### C MP #### [facility] [address] [place] [address] Dr. Tg Fierro EGFR-NON AF CYMRAES >60 Normal >=60 [facility] Comment on above: Performed By: #### C MP #### [facility] [address] [place] [address] Dr. Tg Fierro Globulin (S) [Mass/Vol] 2.7 g/dL Normal [facility] Comment on above: Performed By: #### C MP #### [facility] [address] [place] [address] Dr. Tg Fierro Glucose [Mass/Vol] 120 mg/dL Critically high 74-106 T [facility] Comment on above: Performed By: #### C MP #### [facility] [address] [address] [address] Tg Fierro Potassium [Moles/Vol] 4.1 mmol/L Normal 3.5-5.1 [facility] Comment on above: Performed By: #### C MP #### [facility] [address] [address] [address] Tg Fierro Protein [Mass/Vol] 6.6 g/dL Normal 6.4-8.2 [facility] Comment on above: Performed By: #### C MP #### [facility] [address] [address] [address] Tg Fierro Sodium [Moles/Vol] 139 mmol/L Normal 136-145 [facility] Comment on above: Performed By: #### C MP #### [facility] [address] [address] [address] Tg Fierro Urea nitrogen [Mass/Vol] 13.0 mg/dL Normal 7.0-18.0 [facility] Comment on above: Performed By: #### C MP #### [facility] [address] [address] [address] Tg Fierro Urea nitrogen/Creatinine [Mass ratio] 15.1 mg/mg Normal [facility] Comment on above: Performed By: #### C MP #### [facility] [address] [address] [address] Tg Fierro PROTIMEon 09-24-2022 INR Coag (PPP) [Relative time] 1.35 {INR} Normal [facility] Comment on above: Performed By: #### P T #### [facility] [address] [address] [address] Tg Fierro INR GUIDELINES SEE BELOW Normal [facility] Comment on above: Result Comment: LAURENCE RED INR: 2.0 - 3.0 CONDITIONS NOT LISTED BELOW 2.5 - 3.5 FOR PROSTHETIC HEART VALVE REPLACEMENT 2.5 - 3.5 RECURRENT THROMBOSIS Performed By: #### P T #### [facility] [address] [address] [address] Tg Fierro PT Coag (PPP) [Time] 14.1 s Critically high 9.0-11.6 [facility] Comment on above: Performed By: #### P T #### [facility] [address] [place] [address] Dr. Tg Fierro SED RATE ESCONDIDOERGREN 2022 SED RATE 8 mm/hr Normal <=30 [facility] Comment on above: Performed By: #### C MP #### [facility] [address] [place] [address] Dr. Tg Fierro PROTIMEon 09-09-2022 INR Coag (PPP) [Relative time] 1.23 {INR} Normal [facility] Comment on above: Performed By: #### P T #### [facility] [address] [place] [address] Dr. Tg Fierro INR GUIDELINES SEE BELOW Normal [facility] Comment on above: Result Comment: LAURENCE RED INR: 2.0 - 3.0 CONDITIONS NOT LISTED BELOW 2.5 - 3.5 FOR PROSTHETIC HEART VALVE REPLACEMENT 2.5 - 3.5 RECURRENT THROMBOSIS Performed By: #### P T #### [facility] [address] [place] [address] Dr. Tg Fierro PT Coag (PPP) [Time] 12.9 s Critically high 9.0-11.6 [facility] Comment on above: Performed By: #### P T #### [facility] [address] [place] [address] Dr. Tg Fierro ECHOCARDIO M/2D COMPLETEon 0 09-02-2022 ECHOCARDIO M/2D COMPLETE Patient: WILDA SEN Exam Date: 09/02/2022 : 1945 Gender:F Ordering : DR JAYME PEREZ . Admission #: [id number] Family : Order #: [id number] CLICK HERE TO VIEW EXAM ECHOCARDIOGRAM REPORT [...] Bender M.D. on 09/03/2022 at 17:25 Normal [facility] GLYCOHEMOGLOBIN A1Con 2022 ADA RECOMMENDATION SEE BELOW Normal [facility] Comment on above: Result Comment: ADA RECOMMENDED LIMIT 4.0 - 6.0 ADA THERAPEUTIC TARGET < 7.0 ACTION SUGGESTED > 7.0 Performed By: #### A 1C #### [facility] [address] [address] [address] Tg Fierro Glucose [Mass/Vol] 148 mg/dL Normal [facility] Comment on above: Performed By: #### A 1C #### [facility] [address] [place], [place] [address] Dr. Tg Fierro HbA1c (Bld) [Mass fraction] 6.8 % Critically high 4.5-6.2 [facility] Comment on above: Performed By: #### A 1C #### [facility] [address] [place] [address] Dr. Tg Fierro CBC AUTO DIFFon 08-05-2022 BASO # 0.1 103/ul Normal 0.0-0.1 [facility] Comment on above: Performed By: #### C BC #### [facility] [address] [place] [address] Dr. Tg Fierro Basophils/100 WBC (Bld) 0.8 % Normal 0.2-2.0 [facility] Comment on above: Performed By: #### C BC #### [facility] [address] [place] [address] Dr. Tg Fierro EO # 0.5 103/ul Normal 0.0-0.7 [facility] Comment on above: Performed By: #### C BC #### [facility] [address] [place] [address] Dr. Tg Fierro Eosinophils/100 WBC (Bld) 7.3 % Critically high 0.9-7.0 [facility] Comment on above: Performed By: #### C BC #### [facility] [address] [place] [address] Dr. Tg Fierro Erythrocyte distribution width (RBC) [Ratio] 13.4 % Normal 11.0-15.0 [facility] Comment on above: Performed By: #### C BC #### [facility] [address] [place] [address] Dr. Tg Fierro Hematocrit (Bld) [Volume fraction] 37.1 % Normal 36.0-48.0 [facility] Comment on above: Performed By: #### C BC #### [facility] [address] [place] [address] Dr. Tg Fierro Hemoglobin (Bld) [Mass/Vol] 12.9 g/dL Normal 12.0-16.0 [facility] Comment on above: Performed By: #### C BC #### [facility] [address] [place] [address] Dr. Tg Fierro IG # 0.03 10e3/ul Normal 0.00-0.03 [facility] Comment on above: Performed By: #### C BC #### [facility] [address] [place] [address] Dr. Tg Fierro IG % 0.5 % Normal 0.0-0.5 [facility] Comment on above: Performed By: #### C BC #### [facility] [address] [place] [address] Dr. Tg Fierro LYMPH # 2.3 103/ul Normal 1.2-3.8 [facility] Comment on above: Performed By: #### C BC #### [facility] [address] [place] [address] Dr. Tg Fierro Lymphocytes/100 WBC (Bld) 34.9 % Normal 20.5-60.0 [facility] Comment on above: Performed By: #### C BC #### [facility] [address] [place] [address] Dr. Tg Fierro MANUAL DIFF REQ NO Normal [facility] Comment on above: Performed By: #### C BC #### [facility] [address] [place] [address] Dr. Tg Fierro MCH (RBC) [Entitic mass] 31.0 pg Normal 26.7-34.0 [facility] Comment on above: Performed By: #### C BC #### [facility] [address] [place] [address] Dr. Tg Fierro MCHC (RBC) [Mass/Vol] 34.8 g/dL Normal 29.9-35.2 [facility] Comment on above: Performed By: #### C BC #### [facility] [address] [place] [address] Dr. Tg Fierro MCV (RBC) [Entitic vol] 89.2 fL Normal 81.0-99.0 [facility] Comment on above: Performed By: #### C BC #### [facility] [address] [place] [address] Dr. Tg Fierro MONO # 0.4 103/ul Normal 0.3-0.8 [facility] Comment on above: Performed By: #### C BC #### [facility] [address] [address] [address] Tg Fierro Monocytes/100 WBC (Bld) 6.1 % Normal 1.7-12.0 [facility] Comment on above: Performed By: #### C BC #### [facility] [address] [address] [address] Tg Fierro NEUT # 3.3 103/ul Normal 1.4-6.5 [facility] Comment on above: Performed By: #### C BC #### [facility] [address] [address] [address] Tg Fierro Neutrophils/100 WBC (Bld) 50.4 % Normal 43.0-75.0 [facility] Comment on above: Performed By: #### C BC #### [facility] [address] [place] [address] Dr. Tg Fierro Platelet mean volume (Bld) [Entitic vol] 8.6 fL Critically low 9.5-13.5 [facility] Comment on above: Performed By: #### C BC #### [facility] [address] [place] [address] Dr. Tg Fierro PLT 336 103/ul Normal 150-450 [facility] Comment on above: Performed By: #### C BC #### [facility] [address] [place] [address] Dr. Tg Fierro RBC 4.16 106/ul Critically low 4.20-5.40 [facility] Comment on above: Performed By: #### C BC #### [facility] [address] [place] [address] Dr. Tg Fierro WBC 6.4 103/ul Normal 4.0-11.0 [facility] Comment on above: Performed By: #### C BC #### [facility] [address] [place] [address] Dr. Tg Fierro PROF 14(COMP METB)on 023 Albumin [Mass/Vol] 3.9 g/dL Normal 3.4-5.0 [facility] Comment on above: Performed By: #### P T #### [facility] [address] [address] [address] Tg Fierro Albumin/Globulin [Mass ratio] 1.3 {ratio} Normal [facility] Comment on above: Performed By: #### P T #### [facility] [address] [place] [address] Dr. Tg Fierro ALP [Catalytic activity/Vol] 60 U/L Normal 46-116 [facility] Comment on above: Performed By: #### P T #### [facility] [address] [place] [address] Dr. Tg Fierro ALT [Catalytic activity/Vol] 21 U/L Normal 14-59 [facility] Comment on above: Performed By: #### P T #### [facility] [address] [place] [address] Dr. Tg Fierro Anion gap [Moles/Vol] 15.2 mmol/L Normal [facility] Comment on above: Performed By: #### P T #### [facility] [address] [place] [address] Dr. Tg Fierro AST [Catalytic activity/Vol] 14 U/L Critically low 15-37 [facility] Comment on above: Performed By: #### P T #### [facility] [address] [place] [address] Dr. Tg Fierro Bilirubin [Mass/Vol] 0.4 mg/dL Normal 0.2-1.0 [facility] Comment on above: Performed By: #### P T #### [facility] [address] [place] [address] Dr. Tg Fierro Calcium [Mass/Vol] 9.3 mg/dL Normal 8.5-10.1 [facility] Comment on above: Performed By: #### P T #### [facility] [address] [place] [address] Dr. Tg Fierro Chloride [Moles/Vol] 102 mmol/L Normal 98-107 [facility] Comment on above: Performed By: #### P T #### [facility] [address] [address] [address] Tg Fierro CO2 [Moles/Vol] 26.8 mmol/L Normal 21.0-32.0 [facility] Comment on above: Performed By: #### P T #### [facility] [address] [address] [address] Tg Fierro Creatinine [Mass/Vol] 0.74 mg/dL Normal 0.55-1.02 [facility] Comment on above: Performed By: #### P T #### [facility] [address] [place] [address] Dr. Tg Fierro EGFR-AF CYMRAES >60 Normal >=60 [facility] Comment on above: Performed By: #### P T #### [facility] [address] [place] [address] Dr. Tg Fierro EGFR-NON AF CYMRAES >60 Normal >=60 [facility] Comment on above: Performed By: #### P T #### [facility] [address] [place] [address] Dr. Tg Fierro Globulin (S) [Mass/Vol] 3.1 g/dL Normal [facility] Comment on above: Performed By: #### P T #### [facility] [address] [place] [address] Dr. Tg Fierro Glucose [Mass/Vol] 148 mg/dL Critically high 74-106 [facility] Comment on above: Performed By: #### P T #### [facility] [address] [place] [address] Dr. Tg Fierro Potassium [Moles/Vol] 4.0 mmol/L Normal 3.5-5.1 [facility] Comment on above: Performed By: #### P T #### [facility] [address] [place] [address] Dr. Tg Fierro Protein [Mass/Vol] 7.0 g/dL Normal 6.4-8.2 [facility] Comment on above: Performed By: #### P T #### [facility] [address] [place] [address] Dr. Tg Fierro Sodium [Moles/Vol] 140 mmol/L Normal 136-145 [facility] Comment on above: Performed By: #### P T #### [facility] [address] [place] [address] Dr. Tg Fierro Urea nitrogen [Mass/Vol] 12.0 mg/dL Normal 7.0-18.0 [facility] Comment on above: Performed By: #### P T #### [facility] [address] [place] [address] Dr. Tg Fierro Urea nitrogen/Creatinine [Mass ratio] 16.2 mg/mg Normal [facility] Comment on above: Performed By: #### P T #### [facility] [address] [place] [address] Dr. Tg Fierro [facility] 30 mm/hr Normal <=30 [facility] Comment on above: Performed By: #### S EDR #### [facility] [address] [place] [address] Dr. Tg Fierro CBC AUTO DIFFon 04-15-2022 BASO # 0.1 103/ul Normal 0.0-0.1 [facility] Comment on above: Performed By: #### C BC #### [facility] [address] [place] [address] Dr. Tg Fierro Basophils/100 WBC (Bld) 0.6 % Normal 0.2-2.0 [facility] Comment on above: Performed By: #### C BC #### [facility] [address] [place] [address] Dr. Tg Fierro EO # 0.2 103/ul Normal 0.0-0.7 [facility] Comment on above: Performed By: #### C BC #### [facility] [address] [place] [address] Dr. Tg Fierro Eosinophils/100 WBC (Bld) 3.1 % Normal 0.9-7.0 [facility] Comment on above: Performed By: #### C BC #### [facility] [address] [place] [address] Dr. Tg Fierro Erythrocyte distribution width (RBC) [Ratio] 13.6 % Normal 11.0-15.0 [facility] Comment on above: Performed By: #### C BC #### [facility] [address] [place] [address] Dr. Tg Fierro Hematocrit (Bld) [Volume fraction] 42.3 % Normal 36.0-48.0 [facility] Comment on above: Performed By: #### C BC #### [facility] [address] [place] [address] Dr. Tg Fierro Hemoglobin (Bld) [Mass/Vol] 13.2 g/dL Normal 12.0-16.0 [facility] Comment on above: Performed By: #### C BC #### [facility] [address] [place] [address] Dr. Tg Fierro IG # 0.04 10e3/ul Critically high 0.00-0.03 [facility] Comment on above: Performed By: #### C BC #### [facility] [address] [place] [address] Dr. Tg Fierro IG % 0.5 % Normal 0.0-0.5 [facility] Comment on above: Performed By: #### C BC #### [facility] [address] [place] [address] Dr. Tg Fierro LYMPH # 2.5 103/ul Normal 1.2-3.8 [facility] Comment on above: Performed By: #### C BC #### [facility] [address] [place] [address] Dr. Tg Fierro Lymphocytes/100 WBC (Bld) 31.6 % Normal 20.5-60.0 [facility] Comment on above: Performed By: #### C BC #### [facility] [address] [place] [address] Dr. Tg Fierro MANUAL DIFF REQ NO Normal [facility] Comment on above: Performed By: #### C BC #### [facility] [address] [place] [address] Dr. Tg Fierro MCH (RBC) [Entitic mass] 30.3 pg Normal 26.7-34.0 [facility] Comment on above: Performed By: #### C BC #### [facility] [address] [place] [address] Dr. Tg Fierro MCHC (RBC) [Mass/Vol] 31.2 g/dL Normal 29.9-35.2 [facility] Comment on above: Performed By: #### C BC #### [facility] [address] [place] [address] Dr. Tg Fierro MCV (RBC) [Entitic vol] 97.0 fL Normal 81.0-99.0 [facility] Comment on above: Performed By: #### C BC #### [facility] [address] [place] [address] Dr. Tg Fierro MONO # 0.5 103/ul Normal 0.3-0.8 [facility] Comment on above: Performed By: #### C BC #### [facility] [address] [place] [address] Dr. Tg Fierro Monocytes/100 WBC (Bld) 6.3 % Normal 1.7-12.0 [facility] Comment on above: Performed By: #### C BC #### [facility] [address] [place] [address] Dr. Tg Fierro NEUT # 4.5 103/ul Normal 1.4-6.5 [facility] Comment on above: Performed By: #### C BC #### [facility] [address] [place] [address] Dr. Tg Fierro Neutrophils/100 WBC (Bld) 57.9 % Normal 43.0-75.0 [facility] Comment on above: Performed By: #### C BC #### [facility] [address] [place] [address] Dr. Tg Fierro Platelet mean volume (Bld) [Entitic vol] 8.6 fL Critically low 9.5-13.5 [facility] Comment on above: Performed By: #### C BC #### [facility] [address] [place] [address] Dr. Tg Fierro PLT 295 103/ul Normal 150-450 [facility] Comment on above: Performed By: #### C BC #### [facility] [address] [place] [address] Dr. Tg Fierro RBC 4.36 106/ul Normal 4.20-5.40 [facility] Comment on above: Performed By: #### C BC #### [facility] [address] [address] [address] Tg Fierro WBC 7.8 103/ul Normal 4.0-11.0 [facility] Comment on above: Performed By: #### C BC #### [facility] [address] [place] [address] Dr. Tg Fierro PROF 14(COMP METB)on 022 Albumin [Mass/Vol] 4.5 g/dL Normal 3.4-5.0 [facility] Comment on above: Performed By: #### C MP #### [facility] [address] [place] [address] Dr. Tg Fierro Albumin/Globulin [Mass ratio] 1.5 {ratio} Normal [facility] Comment on above: Performed By: #### C MP #### [facility] [address] [place] [address] Dr. Tg Fierro ALP [Catalytic activity/Vol] 62 U/L Normal 46-116 [facility] Comment on above: Performed By: #### C MP #### [facility] [address] [place] [address] Dr. Tg Fierro ALT [Catalytic activity/Vol] 25 U/L Normal 14-59 [facility] Comment on above: Performed By: #### C MP #### [facility] [address] [place] [address] Dr. Tg Fierro Anion gap [Moles/Vol] 10.6 mmol/L Normal [facility] Comment on above: Performed By: #### C MP #### [facility] [address] [place] [address] Dr. Tg Fierro AST [Catalytic activity/Vol] 12 U/L Critically low 15-37 [facility] Comment on above: Performed By: #### C MP #### [facility] [address] [address] [address] Tg Fierro Bilirubin [Mass/Vol] 0.5 mg/dL Normal 0.2-1.0 [facility] Comment on above: Performed By: #### C MP #### [facility] [address] [address] [address] Tg Fierro Calcium [Mass/Vol] 9.8 mg/dL Normal 8.5-10.1 [facility] Comment on above: Performed By: #### C MP #### [facility] [address] [address] [address] Tg Fierro Chloride [Moles/Vol] 102 mmol/L Normal 98-107 [facility] Comment on above: Performed By: #### C MP #### [facility] [address] [place] [address] Dr. Tg Fierro CO2 [Moles/Vol] 31.8 mmol/L Normal 21.0-32.0 [facility] Comment on above: Performed By: #### C MP #### [facility] [address] [address] [address] Tg Fierro Creatinine [Mass/Vol] 0.88 mg/dL Normal 0.55-1.02 [facility] Comment on above: Performed By: #### C MP #### [facility] [address] [address] [address] Tg Fierro EGFR-AF CYMRAES >60 Normal >=60 [facility] Comment on above: Performed By: #### C MP #### [facility] [address] [address] [address] Tg Fierro EGFR-NON AF CYMRAES >60 Normal >=60 [facility] Comment on above: Performed By: #### C MP #### [facility] [address] [place] [address] Dr. Tg Fierro Globulin (S) [Mass/Vol] 3.1 g/dL Normal [facility] Comment on above: Performed By: #### C MP #### [facility] [address] [address] [address] Tg Fierro Glucose [Mass/Vol] 187 mg/dL Critically high 74-106 [facility] Comment on above: Performed By: #### C MP #### [facility] [address] [address] [address] Tg Fierro Potassium [Moles/Vol] 4.4 mmol/L Normal 3.5-5.1 [facility] Comment on above: Performed By: #### C MP #### [facility] [address] [address] [address] Tg Fierro Protein [Mass/Vol] 7.6 g/dL Normal 6.4-8.2 [facility] Comment on above: Performed By: #### C MP #### [facility] [address] [place] [address] Dr. Tg Fierro Sodium [Moles/Vol] 140 mmol/L Normal 136-145 [facility] Comment on above: Performed By: #### C MP #### [facility] [address] [place] [address] Dr. Tg Fierro Urea nitrogen [Mass/Vol] 14.0 mg/dL Normal 7.0-18.0 [facility] Comment on above: Performed By: #### C MP #### [facility] [address] [place] [address] Dr. Tg Fierro Urea nitrogen/Creatinine [Mass ratio] 15.9 mg/mg Normal [facility] Comment on above: Performed By: #### C MP #### [facility] [address] [place] [address] Dr. Tg Fierro SED RATE WESTERGRENon 2021 SED RATE 5 mm/hr Normal <=30 [facility] Comment on above: Performed By: #### S EDR #### [facility] [address] [place] [address] Dr. Tg Fierro CBC AUTO DIFFon 02-07-2022 BASO # 0.0 103/ul Normal 0.0-0.1 [facility] Comment on above: Performed By: #### P T #### [facility] [address] [place] [address] Dr. Tg Fierro Basophils/100 WBC (Bld) 0.6 % Normal 0.2-2.0 [facility] Comment on above: Performed By: #### P T #### [facility] [address] [place] [address] Dr. Tg Fierro EO # 0.4 103/ul Normal 0.0-0.7 [facility] Comment on above: Performed By: #### P T #### [facility] [address] [place] [address] Dr. Tg Fierro Eosinophils/100 WBC (Bld) 5.4 % Normal 0.9-7.0 [facility] Comment on above: Performed By: #### P T #### [facility] [address] [place] [address] Dr. Tg Fierro Erythrocyte distribution width (RBC) [Ratio] 13.5 % Normal 11.0-15.0 [facility] Comment on above: Performed By: #### P T #### [facility] [address] [place] [address] Dr. Tg Fierro Hematocrit (Bld) [Volume fraction] 39.4 % Normal 36.0-48.0 [facility] Comment on above: Performed By: #### P T #### [facility] [address] [place] [address] Dr. Tg Fierro Hemoglobin (Bld) [Mass/Vol] 12.8 g/dL Normal 12.0-16.0 [facility] Comment on above: Performed By: #### P T #### [facility] [address] [place] [address] Dr. Tg Fierro IG # 0.02 10e3/ul Normal 0.00-0.03 [facility] Comment on above: Performed By: #### P T #### [facility] [address] [place] [address] Dr. Tg Fierro IG % 0.3 % Normal 0.0-0.5 [facility] Comment on above: Performed By: #### P T #### [facility] [address] [place] [address] Dr. Tg Fierro LYMPH # 2.4 103/ul Normal 1.2-3.8 [facility] Comment on above: Performed By: #### P T #### [facility] [address] [place] [address] Dr. Tg Fierro Lymphocytes/100 WBC (Bld) 36.2 % Normal 20.5-60.0 [facility] Comment on above: Performed By: #### P T #### [facility] [address] [place] [address] Dr. Tg Fierro MANUAL DIFF REQ NO Normal [facility] Comment on above: Performed By: #### P T #### [facility] [address] [place] [address] Dr. Tg Fierro MCH (RBC) [Entitic mass] 31.0 pg Normal 26.7-34.0 [facility] Comment on above: Performed By: #### P T #### [facility] [address] [place] [address] Dr. Tg Fierro MCHC (RBC) [Mass/Vol] 32.5 g/dL Normal 29.9-35.2 [facility] Comment on above: Performed By: #### P T #### [facility] [address] [place] [address] Dr. Tg Fierro MCV (RBC) [Entitic vol] 95.4 fL Normal 81.0-99.0 [facility] Comment on above: Performed By: #### P T #### [facility] [address] [place] [address] Dr. Tg Fierro MONO # 0.5 103/ul Normal 0.3-0.8 [facility] Comment on above: Performed By: #### P T #### [facility] [address] [place] [address] Dr. Tg Fierro Monocytes/100 WBC (Bld) 8.0 % Normal 1.7-12.0 [facility] Comment on above: Performed By: #### P T #### [facility] [address] [place] [address] Dr. Tg Fierro NEUT # 3.3 103/ul Normal 1.4-6.5 [facility] Comment on above: Performed By: #### P T #### [facility] [address] [place] [address] Dr. Tg Fierro Neutrophils/100 WBC (Bld) 49.5 % Normal 43.0-75.0 [facility] Comment on above: Performed By: #### P T #### [facility] [address] [place] [address] Dr. Tg Fierro Platelet mean volume (Bld) [Entitic vol] 8.7 fL Critically low 9.5-13.5 [facility] Comment on above: Performed By: #### P T #### [facility] [address] [place] [address] Dr. Tg Fierro PLT 276 103/ul Normal 150-450 [facility] Comment on above: Performed By: #### P T #### [facility] [address] [place] [address] Dr. Tg Fierro RBC 4.13 106/ul Critically low 4.20-5.40 [facility] Comment on above: Performed By: #### P T #### [facility] [address] [place] [address] Dr. Tg Fierro WBC 6.7 103/ul Normal 4.0-11.0 [facility] Comment on above: Performed By: #### P T #### [facility] [address] [place] [address] Dr. Tg Fierro GLYCOHEMOGLOBIN A1Con 2021 ADA RECOMMENDATION SEE BELOW Normal [facility] Comment on above: Result Comment: ADA RECOMMENDED LIMIT 4.0 - 6.0 ADA THERAPEUTIC TARGET < 7.0 ACTION SUGGESTED > 7.0 Performed By: #### A 1C #### [facility] [address] [place] [address] Dr. Tg Fierro Glucose [Mass/Vol] 151 mg/dL Normal [facility] Comment on above: Performed By: #### A 1C #### [facility] [address] [place] [address] Dr. Tg Fierro HbA1c (Bld) [Mass fraction] 6.9 % Critically high 4.5-6.2 [facility] Comment on above: Performed By: #### A 1C #### [facility] [address] [place] [address] Dr. Tg Fierro PROF 14(COMP METB)on 022 Albumin [Mass/Vol] 3.8 g/dL Normal 3.4-5.0 [facility] Comment on above: Performed By: #### P T #### [facility] [address] [place] [address] Dr. Tg Fierro Albumin/Globulin [Mass ratio] 1.3 {ratio} Normal [facility] Comment on above: Performed By: #### P T #### [facility] [address] [place] [address] Dr. Tg Fierro ALP [Catalytic activity/Vol] 43 U/L Critically low 46-116 [facility] Comment on above: Performed By: #### P T #### [facility] [address] [place] [address] Dr. Tg Fierro ALT [Catalytic activity/Vol] 19 U/L Normal 14-59 [facility] Comment on above: Performed By: #### P T #### [facility] [address] [place] [address] Dr. Tg Fierro Anion gap [Moles/Vol] 13.7 mmol/L Normal [facility] Comment on above: Performed By: #### P T #### [facility] [address] [place] [address] Dr. Tg Fierro AST [Catalytic activity/Vol] 11 U/L Critically low 15-37 [facility] Comment on above: Performed By: #### P T #### [facility] [address] [place] [address] Dr. Tg Fierro Bilirubin [Mass/Vol] 0.4 mg/dL Normal 0.2-1.0 [facility] Comment on above: Performed By: #### P T #### [facility] [address] [place] [address] Dr. Tg Fierro Calcium [Mass/Vol] 9.1 mg/dL Normal 8.5-10.1 [facility] Comment on above: Performed By: #### P T #### [facility] [address] [address] [address] Tg Fierro Chloride [Moles/Vol] 104 mmol/L Normal 98-107 [facility] Comment on above: Performed By: #### P T #### [facility] [address] [address] [address] Tg Firero CO2 [Moles/Vol] 28.5 mmol/L Normal 21.0-32.0 [facility] Comment on above: Performed By: #### P T #### [facility] [address] [place] [address] Dr. Tg Fierro Creatinine [Mass/Vol] 0.77 mg/dL Normal 0.55-1.02 [facility] Comment on above: Performed By: #### P T #### [facility] [address] [place] [address] Dr. Tg Fierro EGFR-AF CYMRAES >60 Normal >=60 [facility] Comment on above: Performed By: #### P T #### [facility] [address] [place] [address] Dr. Tg Fierro EGFR-NON AF CYMRAES >60 Normal >=60 [facility] Comment on above: Performed By: #### P T #### [facility] [address] [place] [address] Dr. Tg Fierro Globulin (S) [Mass/Vol] 3.0 g/dL Normal [facility] Comment on above: Performed By: #### P T #### [facility] [address] [address] [address] Tg Fierro Glucose [Mass/Vol] 124 mg/dL Critically high 74-106 [facility] Comment on above: Performed By: #### P T #### [facility] [address] [place] [address] Dr. Tg Fierro Potassium [Moles/Vol] 4.2 mmol/L Normal 3.5-5.1 [facility] Comment on above: Performed By: #### P T #### [facility] [address] [address] [address] Tg Fierro Protein [Mass/Vol] 6.8 g/dL Normal 6.4-8.2 [facility] Comment on above: Performed By: #### P T #### [facility] [address] [address] [address] Tg Fierro Sodium [Moles/Vol] 142 mmol/L Normal 136-145 [facility] Comment on above: Performed By: #### P T #### [facility] [address] [address] [address] Tg Fierro Urea nitrogen [Mass/Vol] 12.0 mg/dL Normal 7.0-18.0 [facility] Comment on above: Performed By: #### P T #### [facility] [address] [address] [address] Tg Fierro Urea nitrogen/Creatinine [Mass ratio] 15.6 mg/mg Normal [facility] Comment on above: Performed By: #### P T #### [facility] [address] [address] [address] Tg Fierro SED RATE [facility] 2021 SED RATE 8 mm/hr Normal <=30 [facility] Comment on above: Performed By: #### C MP #### [facility] [address] [address] [address] Tg Fierro COVID Quick Testingon 2020 Result Positive [facility] Other Vital Signs Date Time Vital Sign Value Performing Clinician Facility 03-26-2023 13:15-040 Body height 160.02 cm MD Jayme Perez Work Phone: [facility] 03-26-2023 13:15-040 Body temperature 98.2 [degF] MD Jayme Perez Work Phone: [facility] 03-26-2023 13:15040 Body weight 66 kg MD Jayme Perez Work Phone: [facility] 03-26-2023 13:15-0400 Diastolic blood pressure 71 mm[Hg] MD Jayme Perez Work Phone: [facility] 03-26-2023 13:15-0400 Heart rate 87 /min MD Jayme Perez Work Phone: [facility] 03-26-2023 13:15-0400 Respiratory rate 16 /min MD Jayme Perez Work Phone: [facility] 03-26-2023 13:15-0400 SaO2% (BldA) [Mass fraction] 97 % MD Jayme Perez Work Phone: [facility] 03-26-2023 13:15-0400 Systolic blood pressure 117 mm[Hg] MD Jayme Perez Work Phone: [facility] 05-21-2021 13:15-0500 Body height 160.02 cm Astrid Baker Other [facility] Other 05-21-2021 13:15-0500 Body mass index (BMI) [Ratio] 23.91 kg/m2 Astrid Baker Other [facility] Other 05-21-2021 13:15-0500 Body temperature 97.3 [degF] Astrid Baker Other [facility] Other 05-21-2021 13:15-0500 Body weight 61.24 kg Astrid Baker Other [facility] Other 05-21-2021 13:15-0500 SaO2% (BldA) [Mass fraction] 94 % Astrid Baker Other [facility] Other Encounters Encounter Date Encounter Type Care Provider Facility Start: 07-10-2023 End: 07-10-2023 ambulatory FELICIAERIC GILLESPIEER Not Available Start: 07-02-2023 End: 07-02-2023 ambulatory FELICIAZULEIMA HITCHCOCKHLER Not Available Start: 06-25-2023 End: 06-25-2023 ambulatory FELICIA HITCHCOCKHLER Not Available Start: 06-18-2023 End: 06-18-2023 ambulatory FELICIA D CORETTAHLER Not Available Start: 04-07-2023 End: 04-07-2023 Departed Referred MD Jayme Perez Work Phone: [facility] Start: 04-07-2023 End: 04-08-2023 ambulatory Williams SHEPHERD Facility:[facility] Start: 03-26-2023 End: 03-26-2023 ambulatory Williams Shepherd Facility:[facility] Start: 03-26-2023 End: 03-26-2023 Patient encounter procedure MD Jayme Perez Work Phone: [facility] Work Phone: Start: 03-20-2023 End: 03-21-2023 ambulatory Williams SHEPHERD Facility:[facility] Start: 03-20-2023 End: 03-20-2023 Lab Drop off Williams SHEPHERD [facility] Start: 03-20-2023 End: 03-20-2023 Patient encounter procedure Williams SHEPHERD [facility] Start: 02-03-2023 End: 02-04-2023 ambulatory Williams SHEPHERD Facility:[facility] Start: 11-11-2022 End: 12-11-[address] JAYME [...] End: 02-08-[address] JAYME PEREZ . Facility:[facility] Start: 05-21-2021 End: 05-21-2021 ambulatory Astrid Baker Other [facility] Other Start: 05-21-2021 Office outpatient visit 15 minutes Astrid Baker [facility] Procedures Date Procedure Procedure Detail Performing Clinician Start: 08-26-2019 Extracorporeal shock wave lithotripsy of calculus of kidney [facility] [employer] Start: 04-12-2016 Cystoscopic laser lithotripsy of ureteric calculus Williams [employer] Start: 03-28-2016 Cystoscopic removal of ureteric stent Williams [employer] Start: 02-15-2016 Extracorporeal shock wave lithotripsy of calculus of kidney Williams SHEPHERD Start: 01-16-2016 Endoscopic retrograd e pyelogram Williams [employer] Start: 06-29-2013 Extracorporeal shock wave lithotripsy of calculus of kidney Williams SHEPHERD Start: 09-10-2010 Cystoscopic removal of ureteric stent Williams [employer] Start: 08-29-2010 Extracorporeal shock wave lithotripsy of calculus of kidney [employer] Start: 08-23-2010 Cystoscopic insertio n of ureteric stent [employer] Start: 03-02-2008 Endoscopic retrograd e pyelogram [employer] Start: 10-16-2004 Cystoscopic anastomo sis of ureter to bladder with insertion of stent into ureter [employer] Plan of Treatment Date Care Activity Detail Author Start: 07-12-2024 ambulatory Ambulatory Facility:[facility] Start: 04-07-2023 Abdomen endoscopy OR Cysto/Retro/Stent/Stone/H olmium Laser (Right) [facility] Immunizations Immunization Date Immunization Notes Care Provider Yaya oswald NEGATED: Highlighted row has not occurred!09-21-2019 influenza virus vaccine, live, attenuated, for intranasal use [facility] NEGATED: Highlighted row has not occurred!08-20-2019 influenza virus vaccine, live, attenuated, for intranasal use [employer] [facility] Payers Date Payer Category Payer Self-pay [id number] 2022 Medicare [id number] 1958 Medicare [id number] 2.1 [id number]. 1959 Unknown [id number] 1945 Unknown [id number] 2.16.84 0.1.817090.3.579.2.593 1945 Unknown [id number] 2.16.84 0.1.878735.3.579.2.593 1945 Unknown [id number] 2.16.84 0.1.214336.3.579.2.593 1946 Unknown [id number] 2.16.84 0.1.212211.3.579.2.593 1946 Unknown [id number] 2.16.84 0.1.793046.3.579.2.593 1945 Unknown [id number] 2.16.84 0.1.081842.3.579.2.593 1946 Unknown [id number] 2.16.84 0.1.874665.3.579.2.593 1946 Unknown [id number] 2.16.84 0.1.467328.3.579.2.593 1946 Unknown [id number] 2.16.84 0.1.874474.3.579.2.593 1946 Unknown [id number] 2.16.84 0.1.760104.3.579.2.593 1946 Unknown [id number] 2.16.84 0.1.084663.3.579.2.593 1946 Unknown [id number] 2.16.84 0.1.310353.3.579.2.593 1946 Unknown [id number] 2.16.84 0.1.764552.3.579.2.593 1946 Unknown [id number] 2.16.8 40.1.302530.3.579.2.727 1945 Unknown [id number] 2.16.8 40.1.162127.3.579.2.727 1946 Unknown [id number] 2.16.8 40.1.448651.3.579.2.727 1946 Unknown [id number] 2.16.8 40.1.974158.3.579.2.727 1946 Unknown [id number] 2.16.840 .1.253937.3.579.2.1259 1946 Unknown [id number] 2.16.840 .1.115775.3.579.2.1259 1946 Unknown [id number] 2.16.840 .1.081536.3.579.2.1259 1945 Unknown [id number] 2.16.840 .1.300764.3.579.2.1259 Unknown [id number] 2.16.8 40.1.267927.3.579.2.531 Unknown [id number] 2.16.8 40.1.384571.3.579.2.531 Social History Date Type Detail Facility Sex Assigned At [facility] Other Start: 02-03-2023 End: 03-26-2023 Tobacco smoking status Ex-smoker (finding) [facility] Tobacco smoking status Never [facility] Sex Assigned At Female [facility] Start: 1945 Sex Assigned At Female [facility] Clinical Note 02-21-2022 Note Date & [...] authenticated by: BLANCA ZAVALA Date: 2022-02-21 07:28 [facility] Evaluation + Plan note Note Date & Type Note Facility Evaluation + Plan note Future Appointments Appointment Date:07/12/2024 10:45:00 AM Scheduled Provider:Williams SHEPHERD MD Location:[facility] Appointment Type:URO Office Visit [facility] Evaluation + Plan note Note Date & Type Note Facility Evaluation + Plan note Future Appointments Appointment Date:07/12/2024 10:45:00 AM Scheduled Provider:Williams SHEPHERD MD [facility] Appointment Type:URO Office Visit Diagnostic Tests PendingCalculi Analysis Urinary 03/20/23 [facility] Evaluation note Note Date & Type Note Facility Evaluation note [facility] [employer] Other Evaluation note Note Date & Type Note Facility Evaluation note No assessment information availa [facility] Work Phone: History general Narrative - Reported Note Date & Type Note Facility History general Narrative - Reported [facility] [employer] Other Hospital course Narrative Note Date & Type Note Facility Hospital course Narrative No data available for this section [facility] Hospital Discharge instructions Note Date & Type Note Facility Hospital Discharge instructions No data available for this section [facility] Progress note Note Date & Type Note Facility Progress note No data available for this section [facility] Summary Purpose Family History No [...] and content) DATE CREATED AUTHOR 12/20/2022 [facility] DATE CREATED AUTHOR AUTHOR'S ORGANIZ ATION 04/15/2023 [facility] DATE CREATED AUTHOR AUTHOR'S ORGANIZ ATION 06/09/2023 [facility] DATE CREATED AUTHOR AUTHOR'S ORGANIZ ATION 07/12/2023 [facility] EPIC Patient Care team informatio [...] BE BASED ON THE PRIMARY CLINICAL RECORDS. [employer] [facility]. provides no warranty or guarantee of the accuracy or completeness of information in this document.
--- NOTE | 2023-07-15 12:49 | XR_ITS ---
[facility] [address] [place] [id number] Patient Name: KASEY SEN MRN: [id number] date: 1945 Sex: F Assigned Patient Location: ER Current Patient Location: ER Accession/Order Number: [id number] Exam Date: 07/15/2023 13:20 Report Date: 07/15/2023 13:34 At the request of: KATHLEEN STARR Procedure: XR chest 1V EXAM: XR chest 1V HISTORY: SOB COMPARISON: Chest study dated 08/20/2019 TECHNIQUE: AP view of the chest was obtained with portable technique at 1:18 PM. FINDINGS: Heart and mediastinal contours are unremarkable in appearance. No acute infiltrate or consolidations are seen. No obvious pneumothorax. Bony structures appear grossly intact. Suggestion of small calcified granuloma at the level of the right lung base laterally. Postoperative sutures overlying the right lower lung field. XR/XR chest 1V IMPRESSION: No acute process seen in the chest. Electronically authenticated by: KYM PARRISH Date: 07/15/2023 13:34
--- NOTE | 2023-07-15 12:49 | ECG_ITS ---
[facility] Test Date: 2023-07-15 Pat Name: KASEY SEN Department: Room: - Gender: Female [employer]: : 1945 Requested By: FAYE PEREZ Order Number: [id number] Reading MD: YESSICA HEAD Measurements Intervals [place] Rate: 102 P: 40 IA: 150 QRS: 4 QRSD: 66 T: 72 QT: 316 QTc: 375 Interpretive Statements 1120 Sinus tachycardia 1970 with occasional ectopic premature complexes 4068 Nonspecific Twave abnormality 9140 abnormal rhythm ECG Electronically Signed On 07-16-2023 7:05:22 EST by YESSICA HEAD
--- NOTE | 2023-07-15 12:52 | ED.GENADUL1 ---
Documented by User: Lobito Rodriguez MD 07/15/23 13:36 HPI - General Adult General Chief complaint: Shortness of Breath/Dyspnea Stated complaint: SHORTNESS OF BREATH Time Seen by Provider: 07/15/23 12:49 Related Data Previous Rx's Medication Instructions Recorded benzonatate 100 mg capsule 100 mg PO TID PRN cough #30 caps 07/15/23 Allergies Allergy/AdvReac Type Severity Reaction Status Date / Time ciprofloxacin [From Cipro] Allergy Severe Verified 07/15/23 12:51 Latex, Natural Rubber Allergy Severe Verified 07/15/23 12:51 metronidazole [From Metrogel] Allergy Severe Verified 07/15/23 12:51 NSAIDS (Non-Steroidal Allergy Severe Swelling Verified 07/15/23 12:51 Anti-Inflamma of Lip/Tongue/Throat Sulfa (Sulfonamide Allergy Severe Verified 07/15/23 12:51 Antibiotics) ketorolac [From Toradol] AdvReac Severe Nausea Verified 07/15/23 12:51 pioglitazone [From Actos] AdvReac Severe Nausea Verified 07/15/23 12:51 PFSH PFSH Social History Smoking status: Former smoker Exam Constitutional Vital Signs, click to edit/add: Last Vital Signs Temp 98.8 F 07/15/23 13:35 Pulse 106 H 07/15/23 12:41 Resp 32 H 07/15/23 12:41 BP 135/69 07/15/23 14:30 Pulse Ox 99 07/15/23 13:04 O2 Del Method Nasal Cannula 07/15/23 13:04 O2 Flow Rate 3 07/15/23 13:04 Course Vital Signs Vital signs: Vital Signs Temperature 98.1 F 07/15/23 12:41 Pulse Rate 106 H 07/15/23 12:41 Respiratory Rate 32 H 07/15/23 12:41 Blood Pressure 128/59 07/15/23 12:41 Pulse Oximetry 98 07/15/23 12:41 Oxygen Delivery Method Room Air 07/15/23 12:41 Temperature 98.8 F 07/15/23 13:35 Pulse Rate 106 H 07/15/23 12:41 Respiratory Rate 32 H 07/15/23 12:41 Blood Pressure 135/69 07/15/23 14:30 Pulse Oximetry 99 07/15/23 13:04 Oxygen Delivery Method Nasal Cannula 07/15/23 13:04 Oxygen Delivery Flow Rate 3 07/15/23 13:04 Medical Decision Making Lab Data Labs: Lab Results 07/15/23 07/15/23 Range/Units 13:02 13:03 WBC 11.0 (4.0-11.0) 10^3/uL RBC 4.22 (4.20-5.40) 10^6/uL Hgb 12.9 (12.0-16.0) g/dL Hct 40.7 (36.0-48.0) % MCV 96.4 (81.0-99.0) fL MCH 30.6 (26.7-34.0) pg MCHC 31.7 (29.9-35.2) g/dL RDW 13.9 (11.0-15.0) % Plt Count 284 (150-450) 10^3/uL MPV 8.8 L (9.5-13.5) fL Neut % (Auto) 77.5 H (43.0-75.0) % Lymph % (Auto) 11.9 L (20.5-60.0) % Hanson % (Auto) 6.4 (1.7-12.0) % Eos % (Auto) 3.3 (0.9-7.0) % Baso % (Auto) 0.4 (0.2-2.0) % Neut # (Auto) 8.5 H (1.4-6.5) 10^3/uL Lymph # (Auto) 1.3 (1.2-3.8) 10^3/uL Hans[place] # (Auto) 0.7 (0.3-0.8) 10^3/uL Eos # (Auto) 0.4 (0.0-0.7) 10^3/uL Baso # (Auto) 0.0 (0.0-0.1) 10^3/uL Abs Immat Gran (auto) 0.05 H (0.00-0.03) 10^3/uL Imm/Tot Granulo (auto) 0.5 (0.0-0.5) % Sodium 139 (136-145) mmol/L Potassium 4.0 (3.5-5.1) mmol/L Chloride 101 (98-107) mmol/L Carbon Dioxide 25.0 (21.0-32.0) mmol/L Anion Gap 17.0 BUN 12.0 (7.0-18.0) mg/dL Creatinine 0.91 (0.55-1.02) mg/dL Est GFR ( Amer) >60 (>=60) Est GFR (Non-Af Amer) 60 (>=60) BUN/Creatinine Ratio 13.2 Glucose 152 H (74-106) mg/dL Calcium 9.5 (8.5-10.1) mg/dL Troponin I High Sens 4.3 (4.0-51.3) pg/mL NT-Pro-B Natriuret Pep 278.0 (<=1800.0) pg/mL SARS-CoV-2 (PCR) Negative (NEGATIVE) Influenza Type A Ag Negative Influenza Type B Ag Negative ECG Data Attestation: I personally reviewed and interpreted this ECG as follows: (EKG interpretation. Sinus tachycardia at 102, normal axis deviation. No acute ST elevation, no acute ectopy. Artifact seen. QTC of 375. Normal regular rhythm.) Discharge Plan Discharge Chief Complaint: Shortness of Breath/Dyspnea Clinical Impression: Acute exacerbation of chronic obstructive pulmonary disease Patient Disposition: Home, Self-Care Time of Disposition Decision: 14:43 Condition: Good Mode of Transportation: Private Vehicle Prescriptions / Home Meds: New benzonatate 100 mg capsule 100 mg PO TID PRN (Reason: cough) Qty: 30 0RF Instructions: COPD (Chronic Obstructive Pulmonary Disease) (ED) Additional Instructions: Return to the ER if your condition worsens. Stand Alone Forms: Portal Instructions Referrals: FAYE PEREZ [Primary Care Provider] - As soon as possible Discharge Date/Time: 07/15/23 15:05 Documented by User: Linda Fu 07/15/23 19:31 HPI - General Adult General Chief complaint: Shortness of Breath/Dyspnea Stated complaint: SHORTNESS OF BREATH Time Seen by Provider: 07/15/23 12:49 Related Data Previous Rx's Medication Instructions Recorded benzonatate 100 mg capsule 100 mg PO TID PRN cough #30 caps 07/15/23 Allergies Allergy/AdvReac Type Severity Reaction Status Date / Time ciprofloxacin [From Cipro] Allergy Severe Verified 07/15/23 12:51 Latex, Natural Rubber Allergy Severe Verified 07/15/23 12:51 metronidazole [From Metrogel] Allergy Severe Verified 07/15/23 12:51 NSAIDS (Non-Steroidal Allergy Severe Swelling Verified 07/15/23 12:51 Anti-Inflamma of Lip/Tongue/Throat Sulfa (Sulfonamide Allergy Severe Verified 07/15/23 12:51 Antibiotics) ketorolac [From Toradol] AdvReac Severe Nausea Verified 07/15/23 12:51 pioglitazone [From Actos] AdvReac Severe Nausea Verified 07/15/23 12:51 PFSH PFSH Social History Smoking status: Former smoker Exam Constitutional Vital Signs, click to edit/add: Last Vital Signs Temp 98.8 F 07/15/23 13:35 Pulse 106 H 07/15/23 12:41 Resp 32 H 07/15/23 12:41 BP 135/69 07/15/23 14:30 Pulse Ox 99 07/15/23 13:04 O2 Del Method Nasal Cannula 07/15/23 13:04 O2 Flow Rate 3 07/15/23 13:04 Course Vital Signs Vital signs: Vital Signs Temperature 98.1 F 07/15/23 12:41 Pulse Rate 106 H 07/15/23 12:41 Respiratory Rate 32 H 07/15/23 12:41 Blood Pressure 128/59 07/15/23 12:41 Pulse Oximetry 98 07/15/23 12:41 Oxygen Delivery Method Room Air 07/15/23 12:41 Temperature 98.8 F 07/15/23 13:35 Pulse Rate 106 H 07/15/23 12:41 Respiratory Rate 32 H 07/15/23 12:41 Blood Pressure 135/69 07/15/23 14:30 Pulse Oximetry 99 07/15/23 13:04 Oxygen Delivery Method Nasal Cannula 07/15/23 13:04 Oxygen Delivery Flow Rate 3 07/15/23 13:04 Medical Decision Making Medical Records Medical records reviewed: Yes I reviewed the patient's medical records Lab Data Lab results reviewed: Yes I reviewed the patient's lab results Labs: Lab Results 07/15/23 07/15/23 Range/Units 13:02 13:03 WBC 11.0 (4.0-11.0) 10^3/uL RBC 4.22 (4.20-5.40) 10^6/uL Hgb 12.9 (12.0-16.0) g/dL Hct 40.7 (36.0-48.0) % MCV 96.4 (81.0-99.0) fL MCH 30.6 (26.7-34.0) pg MCHC 31.7 (29.9-35.2) g/dL RDW 13.9 (11.0-15.0) % Plt Count 284 (150-450) 10^3/uL MPV 8.8 L (9.5-13.5) fL Neut % (Auto) 77.5 H (43.0-75.0) % Lymph % (Auto) 11.9 L (20.5-60.0) % Hanson % (Auto) 6.4 (1.7-12.0) % Eos % (Auto) 3.3 (0.9-7.0) % Baso % (Auto) 0.4 (0.2-2.0) % Neut # (Auto) 8.5 H (1.4-6.5) 10^3/uL Lymph # (Auto) 1.3 (1.2-3.8) 10^3/uL [place] # (Auto) 0.7 (0.3-0.8) 10^3/uL Eos # (Auto) 0.4 (0.0-0.7) 10^3/uL Baso # (Auto) 0.0 (0.0-0.1) 10^3/uL Abs Immat Gran (auto) 0.05 H (0.00-0.03) 10^3/uL Imm/Tot Granulo (auto) 0.5 (0.0-0.5) % Sodium 139 (136-145) mmol/L Potassium 4.0 (3.5-5.1) mmol/L Chloride 101 (98-107) mmol/L Carbon Dioxide 25.0 (21.0-32.0) mmol/L Anion Gap 17.0 BUN 12.0 (7.0-18.0) mg/dL Creatinine 0.91 (0.55-1.02) mg/dL Est GFR ( Amer) >60 (>=60) Est GFR (Non-Af Amer) 60 (>=60) BUN/Creatinine Ratio 13.2 Glucose 152 H (74-106) mg/dL Calcium 9.5 (8.5-10.1) mg/dL Troponin I High Sens 4.3 (4.0-51.3) pg/mL NT-Pro-B Natriuret Pep 278.0 (<=1800.0) pg/mL SARS-CoV-2 (PCR) Negative (NEGATIVE) Influenza Type A Ag Negative Influenza Type B Ag Negative Discharge Plan Discharge Chief Complaint: Shortness of Breath/Dyspnea Clinical Impression: Acute exacerbation of chronic obstructive pulmonary disease Patient Disposition: Home, Self-Care Time of Disposition Decision: 14:43 Condition: Good Mode of Transportation: Private Vehicle Prescriptions / Home Meds: New benzonatate 100 mg capsule 100 mg PO TID PRN (Reason: cough) Qty: 30 0RF Instructions: COPD (Chronic Obstructive Pulmonary Disease) (ED) Additional Instructions: Return to the ER if your condition worsens. Stand Alone Forms: Portal Instructions Referrals: FAYE PEREZ [Primary Care Provider] - As soon as possible Discharge Date/Time: 07/15/23 15:05
[2023-07-15] MEDS: IPRATROPIUM/ALBUTEROL SULFATE 3 ML AMPUL.NEB IH (13:03)
--- NOTE | 2023-07-15 13:09 | ED_ITS ---
Documented by User: Linda Fu 07/15/23 15:38 HPI - SOB/Dyspnea General Chief Complaint: Shortness of Breath/Dyspnea Stated Complaint: SHORTNESS OF BREATH Time Seen by Provider: 07/15/23 12:49 History of Present Illness HPI Narrative: 78 year old female presents to the ED for cough, SOB, congestion, diarrhea, body aches, fatigue. Onset was 2-3 days ago. Denies fever, edema, emesis. She has hx a-fib. Also reports previous lung surgery to remove a calcification. Related Data Previous Rx's Medication Instructions Recorded benzonatate 100 mg capsule 100 mg PO TID PRN cough #30 caps 07/15/23 Allergies Allergy/AdvReac Type Severity Reaction Status Date / Time ciprofloxacin [From Cipro] Allergy Severe Verified 07/15/23 12:51 Latex, Natural Rubber Allergy Severe Verified 07/15/23 12:51 metronidazole [From Metrogel] Allergy Severe Verified 07/15/23 12:51 NSAIDS (Non-Steroidal Allergy Severe Swelling Verified 07/15/23 12:51 Anti-Inflamma of Lip/Tongue/Throat Sulfa (Sulfonamide Allergy Severe Verified 07/15/23 12:51 Antibiotics) ketorolac [From Toradol] AdvReac Severe Nausea Verified 07/15/23 12:51 pioglitazone [From Actos] AdvReac Severe Nausea Verified 07/15/23 12:51 Review of Systems ROS Constitutional Reports: chills and fatigue; Denies: fever Ears, nose, mouth, and throat Denies: throat pain or neck pain Cardiovascular Denies: chest pain or edema Respiratory Reports: shortness of breath, cough and wheezing; Denies: stridor Gastrointestinal Reports: diarrhea; Denies: abdominal pain, nausea or vomiting Musculoskeletal Reports: back pain and joint pain; Denies: neck pain Integumentary/Breast Denies: rash Neurological Denies: headache or dizziness PFSH PFSH Social History Smoking status: Former smoker Exam Constitutional Vital Signs, click to edit/add: Last Vital Signs Temp 98.8 F 07/15/23 13:35 Pulse 106 H 07/15/23 12:41 Resp 32 H 07/15/23 12:41 BP 135/69 07/15/23 14:30 Pulse Ox 99 07/15/23 13:04 O2 Del Method Nasal Cannula 07/15/23 13:04 O2 Flow Rate 3 07/15/23 13:04 Common normals: apparent distress and negative for oriented x3 General appearance: cooperative HENMT Nose: nasal discharge External ear: external ears normal Mouth: oral and palatal mucosa normal, lip normal and tongue normal Eye Common normals: conjunctivae normal and no scleral icterus Neck & C-Spine Common normals: supple Chest Chest: symmetrical chest wall rise Respiratory Effort & inspection: able to speak in complete sentences and symmetric chest movement Auscultation: wheezes and diminished lung sounds Cardio Common normals: regular rhythm Rate: tachycardic GI Common normals: soft to palpation and non-tender Extremity Other: No peripheral edema noted. Neuro Common normals: oriented x3 Sensorium/orientation: awake and alert Course Vital Signs Vital signs: Vital Signs Temperature 98.1 F 07/15/23 12:41 Pulse Rate 106 H 07/15/23 12:41 Respiratory Rate 32 H 07/15/23 12:41 Blood Pressure 128/59 07/15/23 12:41 Pulse Oximetry 98 07/15/23 12:41 Oxygen Delivery Method Room Air 07/15/23 12:41 Temperature 98.8 F 07/15/23 13:35 Pulse Rate 106 H 07/15/23 12:41 Respiratory Rate 32 H 07/15/23 12:41 Blood Pressure 135/69 07/15/23 14:30 Pulse Oximetry 99 07/15/23 13:04 Oxygen Delivery Method Nasal Cannula 07/15/23 13:04 Oxygen Delivery Flow Rate 3 07/15/23 13:04 MDM - SOB/Dyspnea MDM Narrative Medical decision making narrative: Imaging was negative for acute findings. Covid-19 and influenza were negative. A dditional laboratory studies were unremarkable. She was given medication with improvement. She takes prednisone daily; her dose was recently decreased from 5 mg daily to 2.5 mg daily. She was encouraged to follow up with her pcp for a recheck, further evaluation and treatment. Return precautions were discussed. A prescription was provided for michael jain. Differential Diagnosis Differential diagnosis: Likely acute exacerbation of chronic obstructive airways disease, community acquired pneumonia and other (Covid-19, influenza) Medical Records Attestation: I reviewed the patient's medical records. Lab Data Attestation: I reviewed the patient's lab results. Labs: Lab Results 07/15/23 07/15/23 Range/Units 13:02 13:03 WBC 11.0 (4.0-11.0) 10^3/uL RBC 4.22 (4.20-5.40) 10^6/uL Hgb 12.9 (12.0-16.0) g/dL Hct 40.7 (36.0-48.0) % MCV 96.4 (81.0-99.0) fL MCH 30.6 (26.7-34.0) pg MCHC 31.7 (29.9-35.2) g/dL RDW 13.9 (11.0-15.0) % Plt Count 284 (150-450) 10^3/uL MPV 8.8 L (9.5-13.5) fL Neut % (Auto) 77.5 H (43.0-75.0) % Lymph % (Auto) 11.9 L (20.5-60.0) % Menard % (Auto) 6.4 (1.7-12.0) % Eos % (Auto) 3.3 (0.9-7.0) % Baso % (Auto) 0.4 (0.2-2.0) % Neut # (Auto) 8.5 H (1.4-6.5) 10^3/uL Lymph # (Auto) 1.3 (1.2-3.8) 10^3/uL Menard # (Auto) 0.7 (0.3-0.8) 10^3/uL Eos # (Auto) 0.4 (0.0-0.7) 10^3/uL Baso # (Auto) 0.0 (0.0-0.1) 10^3/uL Abs Immat Gran (auto) 0.05 H (0.00-0.03) 10^3/uL Imm/Tot Granulo (auto) 0.5 (0.0-0.5) % Sodium 139 (136-145) mmol/L Potassium 4.0 (3.5-5.1) mmol/L Chloride 101 (98-107) mmol/L Carbon Dioxide 25.0 (21.0-32.0) mmol/L Anion Gap 17.0 BUN 12.0 (7.0-18.0) mg/dL Creatinine 0.91 (0.55-1.02) mg/dL Est GFR ( Amer) >60 (>=60) Est GFR (Non-Af Amer) 60 (>=60) BUN/Creatinine Ratio 13.2 Glucose 152 H (74-106) mg/dL Calcium 9.5 (8.5-10.1) mg/dL Troponin I High Sens 4.3 (4.0-51.3) pg/mL NT-Pro-B Natriuret Pep 278.0 (<=1800.0) pg/mL SARS-CoV-2 (PCR) Negative (NEGATIVE) Influenza Type A Ag Negative Influenza Type B Ag Negative Imaging Data Chest x-ray: Attestation: I have reviewed the pertinent imaging results. Radiologist's impression: At the request of: KATHLEEN RODRIGUEZ Procedure: XR chest 1V EXAM: XR chest 1V HISTORY: SOB COMPARISON: Chest study dated 08/20/2019 TECHNIQUE: AP view of the chest was obtained with portable technique at 1:18 PM. FINDINGS: Heart and mediastinal contours are unremarkable in appearance. No acute infiltrate or consolidations are seen. No obvious pneumothorax. Bony structures appear grossly intact. Suggestion of small calcified granuloma at the level of the right lung base laterally. Postoperative sutures overlying the right lower lung field. XR/XR chest 1V IMPRESSION: No acute process seen in the chest. Electronically authenticated by: KYM PARRISH Date: 07/15/2023 13:34 ECG Data Attestation: ?I have reviewed the pertinent ECG results. Interpretation: Measurements Intervals [place] Rate: 102 P: 40 [place]: 150 QRS: 4 QRSD: 66 T: 72 QT: 316 QTc: 375 Interpretive Statements 1120 Sinus tachycardia 1970 with occasional ectopic premature complexes 4068 Nonspecific Twave abnormality 9140 abnormal rhythm ECG No previous ECG available for comparison Discharge Plan Discharge Chief Complaint: Shortness of Breath/Dyspnea Clinical Impression: Acute exacerbation of chronic obstructive pulmonary disease Patient Disposition: Home, Self-Care Time of Disposition Decision: 14:43 Condition: Good Mode of Transportation: Private Vehicle Prescriptions / Home Meds: New benzonatate 100 mg capsule 100 mg PO TID PRN (Reason: cough) Qty: 30 0RF Instructions: COPD (Chronic Obstructive Pulmonary Disease) (ED) Additional Instructions: Return to the ER if your condition worsens. Stand Alone Forms: Portal Instructions Referrals: FAYE PEREZ [Primary Care Provider] - As soon as possible Discharge Date/Time: 07/15/23 15:05 Documented by User: Kathleen Rodriguez MD 07/15/23 20:00 HPI - SOB/Dyspnea General Chief Complaint: Shortness of Breath/Dyspnea Stated Complaint: SHORTNESS OF BREATH Time Seen by Provider: 07/15/23 12:49 Related Data Previous Rx's Medication Instructions Recorded benzonatate 100 mg capsule 100 mg PO TID PRN cough #30 caps 07/15/23 Allergies Allergy/AdvReac Type Severity Reaction Status Date / Time ciprofloxacin [From Cipro] Allergy Severe Verified 07/15/23 12:51 Latex, Natural Rubber Allergy Severe Verified 07/15/23 12:51 metronidazole [From Metrogel] Allergy Severe Verified 07/15/23 12:51 NSAIDS (Non-Steroidal Allergy Severe Swelling Verified 07/15/23 12:51 Anti-Inflamma of Lip/Tongue/Throat Sulfa (Sulfonamide Allergy Severe Verified 07/15/23 12:51 Antibiotics) ketorolac [From Toradol] AdvReac Severe Nausea Verified 07/15/23 12:51 pioglitazone [From Actos] AdvReac Severe Nausea Verified 07/15/23 12:51 PFSH PFSH Social History Smoking status: Former smoker Exam Constitutional Vital Signs, click to edit/add: Last Vital Signs Temp 98.8 F 07/15/23 13:35 Pulse 106 H 07/15/23 12:41 Resp 32 H 07/15/23 12:41 BP 135/69 07/15/23 14:30 Pulse Ox 99 07/15/23 13:04 O2 Del Method Nasal Cannula 07/15/23 13:04 O2 Flow Rate 3 07/15/23 13:04 Course Vital Signs Vital signs: Vital Signs Temperature 98.1 F 07/15/23 12:41 Pulse Rate 106 H 07/15/23 12:41 Respiratory Rate 32 H 07/15/23 12:41 Blood Pressure 128/59 07/15/23 12:41 Pulse Oximetry 98 07/15/23 12:41 Oxygen Delivery Method Room Air 07/15/23 12:41 Temperature 98.8 F 07/15/23 13:35 Pulse Rate 106 H 07/15/23 12:41 Respiratory Rate 32 H 07/15/23 12:41 Blood Pressure 135/69 07/15/23 14:30 Pulse Oximetry 99 07/15/23 13:04 Oxygen Delivery Method Nasal Cannula 07/15/23 13:04 Oxygen Delivery Flow Rate 3 07/15/23 13:04 MDM - SOB/Dyspnea MDM Narrative Medical decision making narrative: Imaging was negative for acute findings. Covid-19 and influenza were negative. Additional laboratory studies were unremarkable. She was given medication with improvement. She takes prednisone daily; her dose was recently decreased from 5 mg daily to 2.5 mg daily. She was encouraged to follow up with her pcp for a recheck, further evaluation and treatment. Return precautions were discussed. A prescription was provided for michael jain. I, Dr Rodriguez, have reviewed the above progress note and course of action in the ER; agree with the above. I have personally seen and evaluated this patient, gone over history and physical, and discussed disposition and treatment plan with the patient. Lab Data Labs: Lab Results 07/15/23 07/15/23 Range/Units 13:02 13:03 WBC 11.0 (4.0-11.0) 10^3/uL RBC 4.22 (4.20-5.40) 10^6/uL Hgb 12.9 (12.0-16.0) g/dL Hct 40.7 (36.0-48.0) % MCV 96.4 (81.0-99.0) fL MCH 30.6 (26.7-34.0) pg MCHC 31.7 (29.9-35.2) g/dL RDW 13.9 (11.0-15.0) % Plt Count 284 (150-450) 10^3/uL MPV 8.8 L (9.5-13.5) fL Neut % (Auto) 77.5 H (43.0-75.0) % Lymph % (Auto) 11.9 L (20.5-60.0) % Menard % (Auto) 6.4 (1.7-12.0) % Eos % (Auto) 3.3 (0.9-7.0) % Baso % (Auto) 0.4 (0.2-2.0) % Neut # (Auto) 8.5 H (1.4-6.5) 10^3/uL Lymph # (Auto) 1.3 (1.2-3.8) 10^3/uL Menard # (Auto) 0.7 (0.3-0.8) 10^3/uL Eos # (Auto) 0.4 (0.0-0.7) 10^3/uL Baso # (Auto) 0.0 (0.0-0.1) 10^3/uL Abs Immat Gran (auto) 0.05 H (0.00-0.03) 10^3/uL Imm/Tot Granulo (auto) 0.5 (0.0-0.5) % Sodium 139 (136-145) mmol/L Potassium 4.0 (3.5-5.1) mmol/L Chloride 101 (98-107) mmol/L Carbon Dioxide 25.0 (21.0-32.0) mmol/L Anion Gap 17.0 BUN 12.0 (7.0-18.0) mg/dL Creatinine 0.91 (0.55-1.02) mg/dL Est GFR ( Amer) >60 (>=60) Est GFR (Non-Af Amer) 60 (>=60) BUN/Creatinine Ratio 13.2 Glucose 152 H (74-106) mg/dL Calcium 9.5 (8.5-10.1) mg/dL Troponin I High Sens 4.3 (4.0-51.3) pg/mL NT-Pro-B Natriuret Pep 278.0 (<=1800.0) pg/mL SARS-CoV-2 (PCR) Negative (NEGATIVE) Influenza Type A Ag Negative Influenza Type B Ag Negative Discharge Plan Discharge Chief Complaint: Shortness of Breath/Dyspnea Clinical Impression: Acute exacerbation of chronic obstructive pulmonary disease Patient Disposition: Home, Self-Care Time of Disposition Decision: 14:43 Condition: Good Mode of Transportation: Private Vehicle Prescriptions / Home Meds: New benzonatate 100 mg capsule 100 mg PO TID PRN (Reason: cough) Qty: 30 0RF Instructions: COPD (Chronic Obstructive Pulmonary Disease) (ED) Additional Instructions: Return to the ER if your condition worsens. Stand Alone Forms: Portal Instructions Referrals: FAYE PEREZ [Primary Care Provider] - As soon as possible Discharge Date/Time: 07/15/23 15:05
--- NOTE | 2023-07-15 13:11 | RESP.RT ---
placed pt on room air and SpO2 maintained at 99%
[2023-07-15 13:13] LABS: Basophils Percent Auto 0.4 % (0.2-2.0); Eosinophils Absolute Auto 0.4 10^3/uL (0.0-0.7); Eosinophils Percent Auto 3.3 % (0.9-7.0); Hematocrit 40.7 % (36.0-48.0); Hemoglobin 12.9 g/dL (12.0-16.0); Immature Granulocytes Abs Auto 0.05 10^3/uL (0.00-0.03); Immature Granulocytes Pct Auto 0.5 % (0.0-0.5); Lymphocytes Absolute Auto 1.3 10^3/uL (1.2-3.8); Lymphocytes Percent Auto 11.9 % (20.5-60.0); Mean Corpuscular HGB Conc 31.7 g/dL (29.9-35.2); Mean Corpuscular Hemoglobin 30.6 pg (26.7-34.0); Mean Corpuscular Volume 96.4 fL (81.0-99.0); Mean Platelet Volume 8.8 fL (9.5-13.5); Monocytes Absolute Auto 0.7 10^3/uL (0.3-0.8); Monocytes Percent Auto 6.4 % (1.7-12.0); Neutrophils Absolute Auto 8.5 10^3/uL (1.4-6.5); Neutrophils Percent Auto 77.5 % (43.0-75.0); Platelet Count 284 10^3/uL (150-450); Red Blood Count 4.22 10^6/uL (4.20-5.40); Red Cell Distribution Width 13.9 % (11.0-15.0)
[2023-07-15 13:24] LABS: SARS-CoV-2 Ag NEGATIVE (NEGATIVE)
[2023-07-15 13:25] LABS: Influenza Virus A Antigen Negative; Influenza Virus B Antigen Negative; Internal Control Within Normal Limits
[2023-07-15] MEDS: 0.9 % SODIUM CHLORIDE 1,000 ML 500 ML IV (13:52)
[2023-07-15] MEDS: METHYLPREDNISOLONE SOD SUCC PF 125 MG/2 ML VIAL IVP (13:52)
[2023-07-15 14:38] LABS: BUN Creatinine Ratio 13.2; Calcium 9.5 mg/dL (8.5-10.1); Chloride 101 mmol/L (98-107); Estimated GFR (African America >60 (>=60); Estimated GFR (Non-African Ame 60 (>=60); Glucose 152 mg/dL (74-106); Sodium 139 mmol/L (136-145); Troponin I High Sensitivity 4.3 pg/mL (4.0-51.3)
[2023-07-17 11:59] LABS: SARS-CoV-2 NAA INCONCLUSIVE (NOT DETECTE)
== END 2023-07-15 15:05 | disposition home or self-care (01) ==
PROVIDERS: Emergency Provider Emergency Medicine; PCP Family Medicine
DX: J44.1 Chronic obstructive pulmonary disease with (acute) exacerbation (principal); R06.02 Shortness of breath; I48.91 Unspecified atrial fibrillation; Z87.891 Personal history of nicotine dependence
CPT/HCPCS: 36415; 71045; 80048; 83880; 84484; 85025; 87635; 87804; 87811; 93005; 94640; 96374; 99285; J2930

== ENCOUNTER 2023-07-22 10:05 | Outpatient (OUT) | payer MEDICARE, SELFPAY ==
--- OUTSIDE RECORDS SUMMARY | 2023-07-22 10:23 | XMS_ITS | CCD ---
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 Role Phone Astrid Baker Unavailable CAYETANO, [...] anaphylaxis, Unknown (qualifier value) [facility] (1 source) sulfaSALAzine Drug Allergy rash [facility] Other (1 source) Ciprofloxacin Drug Allergy 03-30-20 13 [facility] Repository (2 sources) Ketorolac; 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: [Toradol] Drug Allergy 03-30-20 13 [facility] (1 source) metroNIDAZOLE Drug Allergy 03-30-20 13 [facility] (1 source) NSAIDs Drug allergy (disorder) 03-30-20 13 [facility] (1 source) pioglitazone Drug Allergy 03-30-20 [facility] (1 source) Sulfonamides (Antibiotic) Drug allergy (disorder) 03-30-20 [facility] (6 sources) Ketorolac; 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: [ketorolac] Drug Allergy 03-26-20 Unknown (qualifier value), Nausea (finding) [facility] Comment on above: Severe (5 sources) Latex; 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: [Latex] Drug allergy 03-26-20 Blister of skin AND/OR mucosa (finding) [facility] (3 sources) Non-steroidal anti-inflammatory agent; 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: [NSAIDs] Drug allergy Unknown (qualifier value) [facility] (4 sources) pioglitazone; 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: [pioglitazone] Drug Allergy 03-26-20 Unknown (qualifier value) [facility] (3 sources) Sulfonamides (Antibiotic); 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: [sulfa drugs] Drug allergy Unknown (qualifier value) [facility] (2 sources) metroNIDAZOLE; 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: [metronidazole] Drug Allergy 03-26-20 Redness of Skin [facility] (2 sources) Sulfonamides (Antibiotic); 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: [Sulfa (Sulfonamide Antibiotics)] Allergy to substance 03-26-20 Rash [facility] (2 sources) NSAIDS (Non-Steroidal Anti-Inflamma; 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: [NSAIDS (Non-Steroidal Anti-Inflamma] Allergy to substance 03-26-20 Anaphylaxis [facility] (1 source) Ciprofloxacin Drug Allergy 03-26-20 [facility]ository (1 source) Ketorolac Drug Allergy 03-26-20 [facility] Repository (1 source) pioglitazone Drug Allergy 03-26-20 [facility] Repository Medications Current Medications Medication Drug [...] Oral, q6hr Start Date: 02/03/23 Status: Ordered [id number] 200 actuat albuterol 0.09 mg/actuat metered dose [...] Date: 09/19/20 Status: Ordered Cyanocobalamin-Liver Extract (Vitamin N27-Afprt) Tablet (1 source) Start: 03-26-2023 take 1 tablet by mouth once daily Cyanocobalamin-Liver Extract (Vitamin O35-Yrqbu) Tablet Active 1 TAB PO every day [...] disorder 08-17-2019 Chronic Other aftercare (1 source) custodial (current) use of anticoagulants; 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: [INTERIOR MECHANIC CURRNT USE ANTICOAGULANTS] Onset: 12-11-2022 Episodic Other aftercare (5 sources) Encounter for therapeutic drug level monitoring; 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: [ENC THERAPEUTC DRUG LEVL MONITORING] Onset: 10-18-2022 Episodic Other aftercare (1 source) Other [facility] (current) drug therapy; 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: [OTH INTERIOR MECHANIC CURRENT DRUG THERAPY] Onset: 10-31-2022 Episodic Other [...] Resolved: 05-21-2021 Episodic Other aftercare (1 source) custodial (current) use of oral hypoglycemic drugs; 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: [SHELTER USE ORAL HYPOGLYCEMIC DX] Onset: 08-12-2022 Episodic Other aftercare (1 source) custodial (current) use of insulin; 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: [SHELTER CURRENT USE OF INSULIN] Onset: 02-13-2022 Episodic [...] [Mass fraction] 100 % Invalid Interpretation Code [facility] Comment on above: Performed By: #### 1 [id number] #### [facility] Laboratory [address] [place] [address] Color (Stone) Roper Invalid Interpretation Code [facility] Comment on above: Performed By: #### 1 [id number] #### [facility] [address] [place] [address] Composition Comment Invalid Interpretation Code [facility] Comment on above: Result Comment: Perc entage (Represents the % composition) Performed By: #### 1 [id number] #### [facility] [address] [place] [address] Disclaimer: Comment Invalid Interpretation Code [facility] Comment on above: Result Comment: This test was developed and its performance characteristics determined by [facility]. It has not been cleared or approved by the Food and Drug Administration. Performed at: [address] [id number] PhD Silvestre Esquivel Performed By: #### 1 [id number] #### [facility] [address] [place] [address] Laboratory comment Noam (Report) Comment Invalid Interpretation Code [facility] Comment on above: Result Comment: Coco goode questions regarding Calculi Analysis contact [facility] at: [phone]. Performed By: #### 1 [id number] #### [facility] [address] [place] [address] Please Note: Comment Invalid Interpretation Code [facility] Comment on above: Result Comment: Calc javier report will follow via computer, mail or assistant offset press operator delivery. Performed By: #### 1 [id number] #### [facility] [address] [place] [address] Size (Stone) [Entitic vol] 6x4 Invalid Interpretation Code [facility] Comment on above: Result Comment: Sing le piece received. Performed By: #### 1 [id number] #### [facility] [address] [place] [address] Specimen source subject Nom Comment Invalid Interpretation Code [facility] Comment on above: Result Comment: Not provided Performed By: #### 1 [id number] #### [facility] [address] [place] [address] Stone Photo Comment Invalid Interpretation Code [facility] Comment on above: Result Comment: Phot ograph will follow under a separate cover Performed By: #### 1 [id number] #### [facility] [address] [place] [address] Weight (Stone) 49 mg Invalid Interpretation Code [facility] Comment on above: Performed By: #### 1 [id number] #### [facility] [address] [place] [address] Lab Reportson 03-27-2023 Lab Reports [id number]:127 Normal [facility] Activated partial thrombopla stin time (aPTT) in platelet poor plasma by coagulation aOrdered By: Williams Shepherd on 03-26-2023 aPTT Coag (PPP) [Time] 35.9 s 25.1-36.5 [facility] Comment on above: A hematocrit value g reater than 55% may lead to inaccurate results in coagulation testing. Patients having hematocrit values >55% require a special collection tube for coagulation studies. Please contact the laboratory at [phone] for redraw instructions. Basic Metabolic Panelon 03-14 Anion gap [Moles/Vol] 13.0 mmol/L Normal 6.0-15.0 [facility] Comment on above: Performed By: #### P T, BMP, CBC, PTT #### [facility] [address] Calcium [Mass/Vol] 10.0 mg/dL Normal 8.6-10.3 [facility] Comment on above: Result Comment: PERF ORMED BY: [place] [address] PATHOLOGIST BOX SEALING MACHINE FEEDER BERNIE GRAYSON M.D. Performed By: #### P T, BMP, CBC, PTT #### [address] Chloride [Moles/Vol] 104 mmol/L Normal 98-107 [facility] Comment on above: Performed By: #### P T, BMP, CBC, PTT #### [facility] [address] [place] [address] [place] CO2 [Moles/Vol] 30.0 mmol/L Normal 21.0-31.0 [facility] Comment on above: Performed By: #### P T, BMP, CBC, PTT #### [place] [address] [place] Creatinine [Mass/Vol] 0.85 mg/dL Normal 0.60-1.20 [facility] Comment on above: Performed By: #### P T, BMP, CBC, PTT #### [facility] [address] [place] [id number] [place] GFR/1.73 sq M.predicted MDRD (S/P/Bld) [Vol rate/Area] mL/min/{1.73_m2} Normal [facility] Comment on above: Performed By: #### P T, BMP, CBC, PTT #### [facility] [address] [place] [address] [place] Glucose [Mass/Vol] 111 mg/dL High 70-100 [facility] Comment on above: Result Comment: [place] Glucose Reference Range is dependent on time and content of last meal. Glucose of more than 200 mg/dL in a nonstressed, ambulatory subject supports the diagnosis of Diabetes Mellitus. ADA recommended reference range Performed By: #### P T, BMP, CBC, PTT #### [facility] [address] Potassium [Moles/Vol] 5.0 mmol/L Normal 3.5-5.1 [facility] Comment on above: Performed By: #### P T, BMP, CBC, PTT #### [facility] [address] Sodium [Moles/Vol] 142 mmol/L Normal 136-145 [facility] Comment on above: Performed By: #### P T, BMP, CBC, PTT #### [facility] [address] Urea nitrogen [Mass/Vol] 12 mg/dL Normal 7-25 [facility] Comment on above: Performed By: #### P T, BMP, CBC, PTT #### [facility] [address] Basophils Auto (Bld) [#/Vol] Ordered By: Williams Shepherd on 03-26-2023 Basophils (Bld) [#/Vol] 0.0 10*3/uL 0.0-0.2 [facility] Basophils/100 WBC Auto (Bld) Ordered By: Williams Shepherd on 03-26-2023 Basophils/100 WBC (Bld) 0.8 % . [facility] Calcium [Mass/volume] in Ser um or PlasmaOrdered By: Wliliams Shepherd on 03-26-2023 Calcium [Mass/Vol] 10.0 mg/dL 8.6-10.3 [facility] Carbon dioxide, total [Moles /volume] in Serum or PlasmaOrdered By: Williams Shepherd on 03-26-2023 CO2 [Moles/Vol] 30.0 mmol/L 21.0-31.0 [facility] Chloride [Moles/volume] in S fartun or PlasmaOrdered By: Williams Shepherd on 03-26-2023 Chloride [Moles/Vol] 104 mmol/L 98-107 [facility] Complete Blood Count Auto Di ffon 03-26-2023 Basophils (Bld) [#/Vol] 0.0 10*3/uL Normal 0.0-0.2 [facility] Comment on above: Result Comment: PERF ORMED BY: [place] [address] PATHOLOGIST BOX SEALING MACHINE FEEDER BERNIE GRAYSON M.D. Performed By: #### P T, BMP, CBC, PTT #### [facility] [address] Basophils/100 WBC (Bld) 0.8 % Normal . [facility] Comment on above: Performed By: #### P T, BMP, CBC, PTT #### [facility] [address] Eosinophils (Bld) [#/Vol] 0.3 10*3/uL Normal 0.0-0.45 [facility] Comment on above: Performed By: #### P T, BMP, CBC, PTT #### [facility] [address] Eosinophils/100 WBC (Bld) 4.3 % Normal . [facility] Comment on above: Performed By: #### P T, BMP, CBC, PTT #### [facility] [address] Erythrocyte distribution width (RBC) [Ratio] 14.8 % Normal 11.9-15.3 [facility] Comment on above: Performed By: #### P T, BMP, CBC, PTT #### [facility] [address] [place] [address] [place] Hematocrit (Bld) [Volume fraction] 40.3 % Normal 34.0-46.4 [facility] Comment on above: Performed By: #### P T, BMP, CBC, PTT #### [facility] [address] Hemoglobin (Bld) [Mass/Vol] 13.3 g/dL Normal 11.8-15.4 [facility] Comment on above: Performed By: #### P T, BMP, CBC, PTT #### [address] Lymphocytes (Bld) [#/Vol] 2.2 10*3/uL Normal 1.00-4.8 [facility] Comment on above: Performed By: #### P T, BMP, CBC, PTT #### [address] Lymphocytes/100 WBC (Bld) 36.9 % Normal . [facility] Comment on above: Performed By: #### P T, BMP, CBC, PTT #### [address] MCH (RBC) [Entitic mass] 31.1 pg Normal 24.7-34.3 [facility] Comment on above: Performed By: #### P T, BMP, CBC, PTT #### [address] MCV (RBC) [Entitic vol] 94.4 fL Normal 80-100 [facility] Comment on above: Performed By: #### P T, BMP, CBC, PTT #### [address] Mean Corpuscular HGB Conc 32.9 g/dL Normal 32.0-35.0 [facility] Comment on above: Performed By: #### P T, BMP, CBC, PTT #### [address] Monocytes (Bld) [#/Vol] 0.5 10*3/uL Normal 0.0-0.8 [facility] Comment on above: Performed By: #### P T, BMP, CBC, PTT #### [address] Monocytes/100 WBC (Bld) 7.8 % Normal . [facility] Comment on above: Performed By: #### P T, BMP, CBC, PTT #### [address] Neutrophils (Bld) [#/Vol] 3.0 10*3/uL Normal 1.8-7.7 [facility] Comment on above: Performed By: #### P T, BMP, CBC, PTT #### [facility] [address] Neutrophils/100 WBC (Bld) 50.2 % Normal . [facility] Comment on above: Performed By: #### P T, BMP, CBC, PTT #### [facility] [address] NRBC% 0.3 /100{WBC} Normal 0-0.5 [facility] Comment on above: Performed By: #### P T, BMP, CBC, PTT #### [address] Platelet mean volume (Bld) [Entitic vol] 7.1 fL Normal 6.3-10.7 [facility] Comment on above: Performed By: #### P T, BMP, CBC, PTT #### [address] Platelets (Bld) [#/Vol] 363 10*3/uL Normal 150-450 [facility] Comment on above: Performed By: #### P T, BMP, CBC, PTT #### [address] RBC (Bld) [#/Vol] 4.27 10*6/uL Normal 3.60-5.00 [facility] Comment on above: Performed By: #### P T, BMP, CBC, PTT #### [place] [address] [place] WBC (Bld) [#/Vol] 5.9 10*3/uL Normal 3.8-11.6 [facility] Comment on above: Performed By: #### P T, BMP, CBC, PTT #### [place] [address] [place] Creatinine [Mass/volume] in Serum or PlasmaOrdered By: Williams Shepherd on 03-26-2023 Creatinine [Mass/Vol] 0.85 mg/dL 0.60-1.20 [facility] ECG 12 lead ECGon 03-26-2023 ECG 12 lead ECG [facility] [place] [address] Electrocardiograph Report Signed Patient: Wilda Sen MR#: [id number] 8 : 1945 Acct:[id number] Age/Sex: 77 / F ADM Date: 03/26/23 Loc: Room: Type: [facility] Attending Dr: Williams Shepherd MD Ordering Provider: [...] By Maru Whitehead DO 03/26 190 Normal [facility] Eosinophils Auto (Bld) [#/Vo l]Ordered By: Williams Shepherd on 03-26-2023 Eosinophils (Bld) [#/Vol] 0.3 10*3/uL 0.0-0.45 [facility] Eosinophils/100 WBC Auto (Bl d)Ordered By: Williams Shepherd on 03-26-2023 Eosinophils/100 WBC (Bld) 4.3 % . [facility] Erythrocyte distribution wid th Auto (RBC) [Ratio]Ordered By: Williams Shepherd on 03-26-2023 Erythrocyte distribution width (RBC) [Ratio] 14.8 % 11.9-15.3 [facility] Glucose [Mass/volume] in Ser um or PlasmaOrdered By: Williams Shepherd on 03-26-2023 Glucose [Mass/Vol] 111 mg/dL 70-100 [facility] Comment on above: ADA recommended refe rence rangeRandom Glucose Reference Range is dependent on time and content of last meal. Glucose of more than 200 mg/dL in a nonstressed, ambulatory subject supports the diagnosis of Diabetes Mellitus. Hematocrit Auto (Bld) [Volum e fraction]Ordered By: Williams Shepherd on 03-26-2023 Hematocrit (Bld) [Volume fraction] 40.3 % 34.0-46.4 [facility] Hemoglobin [Mass/volume] in BloodOrdered By: Williams Shepherd on 03-26-2023 Hemoglobin (Bld) [Mass/Vol] 13.3 g/dL 11.8-15.4 [facility] INR in Platelet poor plasma by Coagulation assayOrdered By: Williams Shepherd on 03-26-2023 INR Coag (PPP) [Relative time] 2.3 {INR} [facility] Comment on above: INR Therapeutic Rang [...] RBC Auto (Bld) [#/Vol] 5.9 10*3/uL 3.8-11.6 [facility] Lymphocytes Auto (Bld) [#/Vo l]Ordered By: Williams Shepherd on 03-26-2023 Lymphocytes (Bld) [#/Vol] 2.2 10*3/uL 1.00-4.8 [facility] Lymphocytes/100 WBC Auto (Bl d)Ordered By: Williams Shepherd on 03-26-2023 Lymphocytes/100 WBC (Bld) 36.9 % . [facility] MCH Auto (RBC) [Entitic mass ]Ordered By: Williams Shepherd on 03-26-2023 MCH (RBC) [Entitic mass] 31.1 pg 24.7-34.3 [facility] MCHC Auto (RBC) [Mass/Vol]Or dered By: Williams Shepherd on 03-26-2023 MCHC (RBC) [Mass/Vol] 32.9 g/dL 32.0-35.0 [facility] MCV Auto (RBC) [Entitic vol] Ordered By: Williams Shepherd on 03-26-2023 MCV (RBC) [Entitic vol] 94.4 fL 80-100 [facility] Monocytes Auto (Bld) [#/Vol] Ordered By: Williams Shepherd on 03-26-2023 Monocytes (Bld) [#/Vol] 0.5 10*3/uL 0.0-0.8 [facility] Monocytes/100 WBC Auto (Bld) Ordered By: Williams Shepherd on 03-26-2023 Monocytes/100 WBC (Bld) 7.8 % . [facility] Neutrophils Auto (Bld) [#/Vo l]Ordered By: Williams Shepherd on 03-26-2023 Neutrophils (Bld) [#/Vol] 3.0 10*3/uL 1.8-7.7 [facility] Neutrophils/100 WBC Auto (Bl d)Ordered By: Williams Shepherd on 03-26-2023 Neutrophils/100 WBC (Bld) 50.2 % . [facility] No Panel InformationOrdered By: Williams Shepherd on 03-26-2023 Estimated GFR (CKD-EPI) > 60.0 mL/Min [facility] Creatinine Clearance (Chem N/A [facility] Nucleated erythrocytes [Pres ence] in Blood by Automated countOrdered By: Williams Shepherd on 03-26-2023 Nucleated RBC Auto Ql (Bld) 0.3 /100{WBC} 0-0.5 [facility] Partial Thromboplastin Timeo n 03-26-2023 aPTT Coag (Bld) [Time] 35.9 s Normal 25.1-36.5 [facility] Comment on above: Result Comment: A he matocrit value greater than 55% may lead to inaccurate results in coagulation testing. Patients having hematocrit values >55% require a special collection tube for coagulation studies. Please contact the laboratory at [phone] for redraw instructions. PERFORMED BY: [facility] [address] [place] [id number] PATHOLOGIST BOX SEALING MACHINE FEEDER BERNIE GRAYSON M.D. Performed By: #### P T, BMP, CBC, PTT #### [facility] [address] Platelet mean volume Auto (B ld) [Entitic vol]Ordered By: Williams Shepherd on 03-26-2023 Platelet mean volume (Bld) [Entitic vol] 7.1 fL 6.3-10.7 [facility] Platelets Auto (Bld) [#/Vol] Ordered By: Williams Shepherd on 03-26-2023 Platelets (Bld) [#/Vol] 363 10*3/uL 150-450 [facility] Potassium [Moles/volume] in Serum or PlasmaOrdered By: Williams Shepherd on 03-26-2023 Potassium [Moles/Vol] 5.0 mmol/L 3.5-5.1 [facility] Prothrombin Time INRon 03-26 INR Coag (PPP) [Relative time] 2.3 {INR} Normal [facility] Comment on above: Result Comment: INR [...] #### P T, BMP, CBC, PTT #### [facility] [address] PT Coag (PPP) [Time] 26.6 s High 9.0-12.9 [facility] Comment on above: Result Comment: A he matocrit value greater than 55% may lead to inaccurate results in coagulation testing. Patients having hematocrit values >55% require a special collection tube for coagulation studies. Please contact the laboratory at [phone] for redraw instructions. Performed By: #### P T, BMP, CBC, PTT #### [facility] [address] [place] [id number] [facility] Prothrombin time (PT)Ordered By: Williams Shepherd on 03-26-2023 PT Coag (PPP) [Time] 26.6 s 9.0-12.9 [facility] Comment on above: A hematocrit value g reater than 55% may lead to inaccurate results in coagulation testing. Patients having hematocrit values >55% require a special collection tube for coagulation studies. Please contact the laboratory at [phone] for redraw instructions. RBC Auto (Bld) [#/Vol]Ordere d By: Williams Shepherd on 03-26-2023 RBC (Bld) [#/Vol] 4.27 10*6/uL 3.60-5.00 [facility] Serum or plasma anion gap de terminationOrdered By: Williams Shepherd on 03-26-2023 Anion gap [Moles/Vol] 13.0 mmol/L 6.0-15.0 [facility] Sodium [Moles/volume] in Ser um or PlasmaOrdered By: Williams Shepherd on 03-26-2023 Sodium [Moles/Vol] 142 mmol/L 136-145 [facility] Urea nitrogen [Mass/volume] in Serum or PlasmaOrdered By: Williams Shepherd on 03-26-2023 Urea nitrogen [Mass/Vol] 12 mg/dL 7-25 [facility] WBC Auto (Bld) [#/Vol]Ordere d By: Williams Shepherd on 03-26-2023 WBC (Bld) [#/Vol] 5.9 10*3/uL 3.8-11.6 [facility] Consultation Noteon 03-17-20 Consultation Note [id number]:12 7 Normal [facility] Lab Reportson 02-12-2023 Lab Reports [id number]:12 7 Normal [facility] RAD - MISCon 02-12-2023 RAD - MISC [id number]:12 7 [facility] RAD - CT Reporton 02-05-2023 RAD - CT Report [id number]:12 7 Normal [facility] RAD - MISCon 02-05-2023 RAD - MISC [id number]:12 7 Normal [facility] Ambulatory Visit Summaryon 0 02-03-2023 Ambulatory Visit [...] AGUIAR, Williams Venegas Where: [facility] Ju Floyd [facility] Patient Educationon 02-04-20 Patient Education Urology Kidney [...] these instructions at home: Medicines ? Take iwkw-hnk-xjepbrb and prescription medicines only as told by [...] follow (more content not included)... Normal [facility] Urology Office/Clinic Noteon 02-03-2023 Urology Office/Clinic Note Chief Complaint 16 month follow up w/ CT scan HPI Staff Pt is here today for 16 month follow up w/ CT scan done @[facility] on 01/15/23. CT scan shows partially [...] MD, URL [address] [address]- Additional Instructions: Patient Education Kidney Stones I, Fanny Bowen, personally scribed for Dr. Shepherd on 02/03/2023 12:04:03. . Documentation recorded by the scribe, Fanny Bowen, accurately reflects the services(s) I performed and decisions made by me. Authenticated by Dr. Shepherd on 02/03/2023 12:37:35. Portions of this record may have been created with voice recognition artificial intelligence software, specifically [employer], [employer] and or [employer]. Substitutions may have occurred due to the inherent limitations of voice recognition and artificial intelligence software. Problem List/Past Medical History Ongoing Abdominal pain Anticoagulated Anxiety BMI 27.0-27.9,adult Depression Diabetes Former smoker Frequent urination Heart murmur History of uterine cancer Hx of [facility] use of blood thin (more content not included)... Normal [facility] Comment on above: Result Comment: Elec tronically Signed By: Williams SHEPHERD MD\.br\Date and Time Signed: 02/03/23 12:39 EDT\.br\Electronically Co-Signed By: Fanny Bowen\.br\Date and Time Co-Signed: 02/03/23 12:04 EDT PROTIMEon 12-02-2022 INR Coag (PPP) [Relative time] 3.62 {INR} Normal [facility] Comment on above: Performed By: #### P T #### [facility] Laboratory [address] [address] [address] Tg Fierro INR GUIDELINES SEE BELOW Normal [facility] Comment on above: Result Comment: LAURENCE RED INR: 2.0 - 3.0 CONDITIONS NOT LISTED BELOW 2.5 - 3.5 FOR PROSTHETIC HEART VALVE REPLACEMENT 2.5 - 3.5 RECURRENT THROMBOSIS Performed By: #### P T #### [facility] [address] [address] [address] Tg Fierro PT Coag (PPP) [Time] 35.7 s Critically high 9.0-11.6 [facility] Comment on above: Performed By: #### P T #### [facility] [address] [place] [address] Dr. Tg Fierro PROTIMEon 11-11-2022 INR Coag (PPP) [Relative time] 1.90 {INR} Normal [facility] Comment on above: Performed By: #### P T #### [facility] [address] [place] [address] Dr. Tg Fierro INR GUIDELINES SEE BELOW Normal [facility] Comment on above: Result Comment: LAURENCE RED INR: 2.0 - 3.0 CONDITIONS NOT LISTED BELOW 2.5 - 3.5 FOR PROSTHETIC HEART VALVE REPLACEMENT 2.5 - 3.5 RECURRENT THROMBOSIS Performed By: #### P T #### [facility] [address] [place] [address] Dr. Tg Fierro PT Coag (PPP) [Time] 19.4 s Critically high 9.0-11.6 [facility] Comment on above: Performed By: #### P T #### [facility] [address] [place] [address] Dr. Tg Fierro CBC AUTO DIFFon 10-25-2022 BASO # 0.0 103/ul Normal 0.0-0.1 [facility] Comment on above: Performed By: #### P T #### [facility] [address] [place] [address] Dr. Tg Fierro Basophils/100 WBC (Bld) 0.5 % Normal 0.2-2.0 [facility] Comment on above: Performed By: #### P T #### [facility] [address] [place] [address] Dr. Tg Fierro EO # 0.2 103/ul Normal 0.0-0.7 [facility] Comment on above: Performed By: #### P T #### [facility] [address] [place] [address] Dr. Tg Fierro Eosinophils/100 WBC (Bld) 2.7 % Normal 0.9-7.0 [facility] Comment on above: Performed By: #### P T #### [facility] [address] [place] [address] Dr. Tg Fierro Erythrocyte distribution width (RBC) [Ratio] 13.4 % Normal 11.0-15.0 [facility] Comment on above: Performed By: #### P T #### [facility] [address] [place] [address] Dr. Tg Fierro Hematocrit (Bld) [Volume fraction] 40.7 % Normal 36.0-48.0 [facility] Comment on above: Performed By: #### P T #### [facility] [address] [place] [address] Dr. Tg Fierro Hemoglobin (Bld) [Mass/Vol] 13.2 g/dL Normal 12.0-16.0 [facility] Comment on above: Performed By: #### P T #### [facility] [address] [place] [address] Dr. Tg Fierro IG # 0.03 10e3/ul Normal 0.00-0.03 [facility] Comment on above: Performed By: #### P T #### [facility] [address] [place] [address] Dr. Tg Fierro IG % 0.5 % Normal 0.0-0.5 [facility] Comment on above: Performed By: #### P T #### [facility] [address] [place] [address] Dr. Tg Fierro LYMPH # 2.1 103/ul Normal 1.2-3.8 [facility] Comment on above: Performed By: #### P T #### [facility] [address] [place] [address] Dr. Tg Fierro Lymphocytes/100 WBC (Bld) 34.9 % Normal 20.5-60.0 [facility] Comment on above: Performed By: #### P T #### [facility] [address] [place] [address] Dr. Tg Fierro MANUAL DIFF REQ NO Normal [facility] Comment on above: Performed By: #### P T #### [facility] [address] [address] [address] Tg Fierro MCH (RBC) [Entitic mass] 30.5 pg Normal 26.7-34.0 [facility] Comment on above: Performed By: #### P T #### [facility] [address] [place] [address] Dr. Tg Fierro MCHC (RBC) [Mass/Vol] 32.4 g/dL Normal 29.9-35.2 [facility] Comment on above: Performed By: #### P T #### [facility] [address] [place] [address] Dr. Tg Fierro MCV (RBC) [Entitic vol] 94.0 fL Normal 81.0-99.0 [facility] Comment on above: Performed By: #### P T #### [facility] [address] [place] [address] Dr. Tg Fierro MONO # 0.4 103/ul Normal 0.3-0.8 [facility] Comment on above: Performed By: #### P T #### [facility] [address] [place] [address] Dr. Tg Fierro Monocytes/100 WBC (Bld) 7.1 % Normal 1.7-12.0 [facility] Comment on above: Performed By: #### P T #### [facility] [address] [place] [address] Dr. Tg Fierro NEUT # 3.2 103/ul Normal 1.4-6.5 [facility] Comment on above: Performed By: #### P T #### [facility] [address] [place] [address] Dr. Tg Fierro Neutrophils/100 WBC (Bld) 54.3 % Normal 43.0-75.0 [facility] Comment on above: Performed By: #### P T #### [facility] [address] [place] [address] Dr. Tg Fierro Platelet mean volume (Bld) [Entitic vol] 8.7 fL Critically low 9.5-13.5 [facility] Comment on above: Performed By: #### P T #### [facility] [address] [place] [address] Dr. Tg Fierro PLT 295 103/ul Normal 150-450 [facility] Comment on above: Performed By: #### P T #### [facility] [address] [place] [address] Dr. Tg iFerro RBC 4.33 106/ul Normal 4.20-5.40 [facility] Comment on above: Performed By: #### P T #### [facility] [address] [place] [address] Dr. Tg Fierro WBC 5.9 103/ul Normal 4.0-11.0 [facility] Comment on above: Performed By: #### P T #### [facility] [address] [place] [address] Dr. Tg Fierro PROF 14(COMP METB)on 023 Albumin [Mass/Vol] 3.8 g/dL Normal 3.4-5.0 [facility] Comment on above: Performed By: #### C MP #### [facility] [address] [place] [address] Dr. Tg Fierro Albumin/Globulin [Mass ratio] 1.2 {ratio} Normal [facility] Comment on above: Performed By: #### C MP #### [facility] [address] [place] [address] Dr. Tg Fierro ALP [Catalytic activity/Vol] 49 U/L Normal 46-116 [facility] Comment on above: Performed By: #### C MP #### [facility] [address] [place] [address] Dr. Tg Fierro ALT [Catalytic activity/Vol] 21 U/L Normal 14-59 [facility] Comment on above: Performed By: #### C MP #### [facility] [address] [place] [address] Dr. Tg Fierro Anion gap [Moles/Vol] 13.3 mmol/L Normal [facility] Comment on above: Performed By: #### C MP #### [facility] [address] [place] [address] Dr. Tg Fierro AST [Catalytic activity/Vol] 14 U/L Critically low 15-37 [facility] Comment on above: Performed By: #### C MP #### [facility] [address] [address] [address] Tg Fierro Bilirubin [Mass/Vol] 0.5 mg/dL Normal 0.2-1.0 [facility] Comment on above: Performed By: #### C MP #### [facility] [address] [address] [address] Tg Fierro Calcium [Mass/Vol] 9.5 mg/dL Normal 8.5-10.1 [facility] Comment on above: Performed By: #### C MP #### [facility] [address] [address] [address] Tg Fierro Chloride [Moles/Vol] 104 mmol/L Normal 98-107 [facility] Comment on above: Performed By: #### C MP #### [facility] [address] [address] [address] Tg Fierro CO2 [Moles/Vol] 29.3 mmol/L Normal 21.0-32.0 [facility] Comment on above: Performed By: #### C MP #### [facility] [address] [address] [address] Tg Fierro Creatinine [Mass/Vol] 0.93 mg/dL Normal 0.55-1.02 [facility] Comment on above: Performed By: #### C MP #### [facility] [address] [address] [address] Tg Fierro EGFR-AF MOSOTHO >60 Normal >=60 [facility] Comment on above: Performed By: #### C MP #### [facility] [address] [address] [address] Tg Fierro EGFR-NON AF MOSOTHO 59 mL/min/1.73m2 Critically low >=60 [facility] Comment on above: Performed By: #### C MP #### [facility] [address] [address] [address] Tg Fierro Globulin (S) [Mass/Vol] 3.2 g/dL Normal [facility] Comment on above: Performed By: #### C MP #### [facility] [address] [address] [address] Tg Fierro Glucose [Mass/Vol] 186 mg/dL Critically high 74-106 [facility] Comment on above: Performed By: #### C MP #### [facility] [address] [address] [address] Tg Fierro Potassium [Moles/Vol] 4.6 mmol/L Normal 3.5-5.1 [facility] Comment on above: Performed By: #### C MP #### [facility] [address] [address] [address] Tg Fierro Protein [Mass/Vol] 7.0 g/dL Normal 6.4-8.2 [facility] Comment on above: Performed By: #### C MP #### [facility] [address] [address] [address] Tg Fierro Sodium [Moles/Vol] 142 mmol/L Normal 136-145 [facility] Comment on above: Performed By: #### C MP #### [facility] [address] [address] [address] Tg Fierro Urea nitrogen [Mass/Vol] 15.0 mg/dL Normal 7.0-18.0 [facility] Comment on above: Performed By: #### C MP #### [facility] [address] [address] [address] Tg Fierro Urea nitrogen/Creatinine [Mass ratio] 16.1 mg/mg Normal [facility] Comment on above: Performed By: #### C MP #### [facility] [address] [address] [address] Tg Fierro SED RATE formerly [facility] 2022 SED RATE 9 mm/hr Normal <=30 [facility] Comment on above: Performed By: #### C MP #### [facility] [address] [address] [address] Tg Fierro PROTIMEon 10-14-2022 INR Coag (PPP) [Relative time] 1.94 {INR} Normal [facility] Comment on above: Performed By: #### P T #### [facility] [address] [place] [address] Dr. Tg Fierro INR GUIDELINES SEE BELOW Normal [facility] Comment on above: Result Comment: LAURENCE RED INR: 2.0 - 3.0 CONDITIONS NOT LISTED BELOW 2.5 - 3.5 FOR PROSTHETIC HEART VALVE REPLACEMENT 2.5 - 3.5 RECURRENT THROMBOSIS Performed By: #### P T #### [facility] [address] [place] [address] Dr. Tg Fierro PT Coag (PPP) [Time] 19.8 s Critically high 9.0-11.6 [facility] Comment on above: Performed By: #### P T #### [facility] [address] [place] [address] Dr. Tg Fierro CBC AUTO DIFFon 09-24-2022 BASO # 0.1 103/ul Normal 0.0-0.1 [facility] Comment on above: Performed By: #### P T #### [facility] [address] [place] [address] Dr. Tg Fierro Basophils/100 WBC (Bld) 0.7 % Normal 0.2-2.0 [facility] Comment on above: Performed By: #### P T #### [facility] [address] [place] [address] Dr. Tg Fierro EO # 0.3 103/ul Normal 0.0-0.7 [facility] Comment on above: Performed By: #### P T #### [facility] [address] [place] [address] Dr. Tg Fierro Eosinophils/100 WBC (Bld) 3.6 % Normal 0.9-7.0 [facility] Comment on above: Performed By: #### P T #### [facility] [address] [place] [address] Dr. Tg Fierro Erythrocyte distribution width (RBC) [Ratio] 13.4 % Normal 11.0-15.0 [facility] Comment on above: Performed By: #### P T #### [facility] [address] [address] [address] Tg Fierro Hematocrit (Bld) [Volume fraction] 38.4 % Normal 36.0-48.0 [facility] Comment on above: Performed By: #### P T #### [facility] [address] [address] [address] Tg Fierro Hemoglobin (Bld) [Mass/Vol] 12.7 g/dL Normal 12.0-16.0 [facility] Comment on above: Performed By: #### P T #### [facility] [address] [address] [address] Tg Fierro IG # 0.05 10e3/ul Critically high 0.00-0.03 [facility] Comment on above: Performed By: #### P T #### [facility] [address] [place] [address] Dr. Tg Fierro IG % 0.7 % Critically high 0.0-0.5 [facility] Comment on above: Performed By: #### P T #### [facility] [address] [place] [address] Dr. Tg Fierro LYMPH # 2.6 103/ul Normal 1.2-3.8 [facility] Comment on above: Performed By: #### P T #### [facility] [address] [place] [address] Dr. Tg Fierro Lymphocytes/100 WBC (Bld) 34.2 % Normal 20.5-60.0 [facility] Comment on above: Performed By: #### P T #### [facility] [address] [place] [address] Dr. Tg Fierro MANUAL DIFF REQ NO Normal [facility] Comment on above: Performed By: #### P T #### [facility] [address] [place] [address] Dr. Tg Fierro MCH (RBC) [Entitic mass] 31.2 pg Normal 26.7-34.0 [facility] Comment on above: Performed By: #### P T #### [facility] [address] [place] [address] Dr. Tg Fierro MCHC (RBC) [Mass/Vol] 33.1 g/dL Normal 29.9-35.2 [facility] Comment on above: Performed By: #### P T #### [facility] [address] [place] [address] Dr. Tg Fierro MCV (RBC) [Entitic vol] 94.3 fL Normal 81.0-99.0 [facility] Comment on above: Performed By: #### P T #### [facility] [address] [place] [address] Dr. Tg Fierro MONO # 0.6 103/ul Normal 0.3-0.8 [facility] Comment on above: Performed By: #### P T #### [facility] [address] [place] [address] Dr. Tg Fierro Monocytes/100 WBC (Bld) 8.1 % Normal 1.7-12.0 [facility] Comment on above: Performed By: #### P T #### [facility] [address] [place] [address] Dr. Tg Fierro NEUT # 4.1 103/ul Normal 1.4-6.5 [facility] Comment on above: Performed By: #### P T #### [facility] [address] [place] [address] Dr. Tg Fierro Neutrophils/100 WBC (Bld) 52.7 % Normal 43.0-75.0 [facility] Comment on above: Performed By: #### P T #### [facility] [address] [place] [address] Dr. Tg Fierro Platelet mean volume (Bld) [Entitic vol] 8.7 fL Critically low 9.5-13.5 [facility] Comment on above: Performed By: #### P T #### [facility] [address] [place] [address] Dr. Tg Fierro PLT 278 103/ul Normal 150-450 [facility] Comment on above: Performed By: #### P T #### [facility] [address] [place] [address] Dr. Tg Fierro RBC 4.07 106/ul Critically low 4.20-5.40 [facility] Comment on above: Performed By: #### P T #### [facility] [address] [place] [address] Dr. Tg Fierro WBC 7.7 103/ul Normal 4.0-11.0 [facility] Comment on above: Performed By: #### P T #### [facility] [address] [place] [address] Dr. Tg Fierro PROF 14(COMP METB)on 023 Albumin [Mass/Vol] 3.9 g/dL Normal 3.4-5.0 [facility] Comment on above: Performed By: #### C MP #### [facility] [address] [place] [address] Dr. Tg Fierro Albumin/Globulin [Mass ratio] 1.4 {ratio} Normal [facility] Comment on above: Performed By: #### C MP #### [facility] [address] [place] [address] Dr. Tg Fierro ALP [Catalytic activity/Vol] 59 U/L Normal 46-116 [facility] Comment on above: Performed By: #### C MP #### [facility] [address] [place] [address] Dr. Tg Fierro ALT [Catalytic activity/Vol] 21 U/L Normal 14-59 [facility] Comment on above: Performed By: #### C MP #### [facility] [address] [place] [address] Dr. Tg Fierro Anion gap [Moles/Vol] 10.8 mmol/L Normal [facility] Comment on above: Performed By: #### C MP #### [facility] [address] [place] [address] Dr. Tg Fierro AST [Catalytic activity/Vol] 9 U/L Critically low 15-37 [facility] Comment on above: Performed By: #### C MP #### [facility] [address] [place] [address] Dr. Tg Fierro Bilirubin [Mass/Vol] 0.3 mg/dL Normal 0.2-1.0 [facility] Comment on above: Performed By: #### C MP #### [facility] [address] [address] [address] Tg Fierro Calcium [Mass/Vol] 9.1 mg/dL Normal 8.5-10.1 [facility] Comment on above: Performed By: #### C MP #### [facility] [address] [address] [address] Tg Fierro Chloride [Moles/Vol] 104 mmol/L Normal 98-107 [facility] Comment on above: Performed By: #### C MP #### [facility] [address] [place] [address] Dr. Tg Fierro CO2 [Moles/Vol] 28.3 mmol/L Normal 21.0-32.0 [facility] Comment on above: Performed By: #### C MP #### [facility] [address] [place] [address] Dr. Tg Fierro Creatinine [Mass/Vol] 0.86 mg/dL Normal 0.55-1.02 [facility] Comment on above: Performed By: #### C MP #### [facility] [address] [place] [address] Dr. Tg Fierro EGFR-AF MOSOTHO >60 Normal >=60 [facility] Comment on above: Performed By: #### C MP #### [facility] [address] [place] [address] Dr. Tg Fierro EGFR-NON AF MOSOTHO >60 Normal >=60 [facility] Comment on above: Performed By: #### C MP #### [facility] [address] [place] [address] Dr. Tg Fierro Globulin (S) [Mass/Vol] 2.7 g/dL Normal [facility] Comment on above: Performed By: #### C MP #### [facility] [address] [place] [address] Dr. Tg Fierro Glucose [Mass/Vol] 120 mg/dL Critically high 74-106 T [facility] Comment on above: Performed By: #### C MP #### [facility] [address] [address] [address] Tg Fierro Potassium [Moles/Vol] 4.1 mmol/L Normal 3.5-5.1 [facility] Comment on above: Performed By: #### C MP #### [facility] [address] [address] [address] Tg Fierro Protein [Mass/Vol] 6.6 g/dL Normal 6.4-8.2 [facility] Comment on above: Performed By: #### C MP #### [facility] [address] [address] [address] Tg Fierro Sodium [Moles/Vol] 139 mmol/L Normal 136-145 [facility] Comment on above: Performed By: #### C MP #### [facility] [address] [address] [address] Tg Fierro Urea nitrogen [Mass/Vol] 13.0 mg/dL Normal 7.0-18.0 [facility] Comment on above: Performed By: #### C MP #### [facility] [address] [address] [address] Tg Fierro Urea nitrogen/Creatinine [Mass ratio] 15.1 mg/mg Normal [facility] Comment on above: Performed By: #### C MP #### [facility] [address] [address] [address] Tg Fierro PROTIMEon 09-24-2022 INR Coag (PPP) [Relative time] 1.35 {INR} Normal [facility] Comment on above: Performed By: #### P T #### [facility] [address] [address] [address] Tg Fierro INR GUIDELINES SEE BELOW Normal [facility] Comment on above: Result Comment: LAURENCE RED INR: 2.0 - 3.0 CONDITIONS NOT LISTED BELOW 2.5 - 3.5 FOR PROSTHETIC HEART VALVE REPLACEMENT 2.5 - 3.5 RECURRENT THROMBOSIS Performed By: #### P T #### [facility] [address] [address] [address] Tg Fierro PT Coag (PPP) [Time] 14.1 s Critically high 9.0-11.6 [facility] Comment on above: Performed By: #### P T #### [facility] [address] [place] [address] Dr. Tg Fierro SED RATE TURTLEPOINTERGREN 2022 SED RATE 8 mm/hr Normal <=30 [facility] Comment on above: Performed By: #### C MP #### [facility] [address] [place] [address] Dr. Tg Fierro PROTIMEon 09-09-2022 INR Coag (PPP) [Relative time] 1.23 {INR} Normal [facility] Comment on above: Performed By: #### P T #### [facility] [address] [place] [address] Dr. Tg Fierro INR GUIDELINES SEE BELOW Normal [facility] Comment on above: Result Comment: LAURENCE RED INR: 2.0 - 3.0 CONDITIONS NOT LISTED BELOW 2.5 - 3.5 FOR PROSTHETIC HEART VALVE REPLACEMENT 2.5 - 3.5 RECURRENT THROMBOSIS Performed By: #### P T #### [facility] [address] [place] [address] Dr. Tg Fierro PT Coag (PPP) [Time] 12.9 s Critically high 9.0-11.6 [facility] Comment on above: Performed By: #### P T #### [facility] [address] [place] [address] Dr. Tg Fierro ECHOCARDIO M/2D COMPLETEon 0 09-02-2022 ECHOCARDIO M/2D COMPLETE Patient: WILDA SEN Exam Date: 09/02/2022 : 1945 Gender:F Ordering : DR JAYME PEREZ . Admission #: [id number] Family : Order #: [id number] CLICK HERE TO VIEW EXAM ECHOCARDIOGRAM REPORT [...] Bender M.D. on 09/03/2022 at 17:25 Normal [facility] GLYCOHEMOGLOBIN A1Con 2022 ADA RECOMMENDATION SEE BELOW Normal [facility] Comment on above: Result Comment: ADA RECOMMENDED LIMIT 4.0 - 6.0 ADA THERAPEUTIC TARGET < 7.0 ACTION SUGGESTED > 7.0 Performed By: #### A 1C #### [facility] [address] [address] [address] Tg Fierro Glucose [Mass/Vol] 148 mg/dL Normal [facility] Comment on above: Performed By: #### A 1C #### [facility] [address] [place], [place] [address] Dr. Tg Fierro HbA1c (Bld) [Mass fraction] 6.8 % Critically high 4.5-6.2 [facility] Comment on above: Performed By: #### A 1C #### [facility] [address] [place] [address] Dr. Tg Fierro CBC AUTO DIFFon 08-05-2022 BASO # 0.1 103/ul Normal 0.0-0.1 [facility] Comment on above: Performed By: #### C BC #### [facility] [address] [place] [address] Dr. Tg Fierro Basophils/100 WBC (Bld) 0.8 % Normal 0.2-2.0 [facility] Comment on above: Performed By: #### C BC #### [facility] [address] [place] [address] Dr. Tg Fierro EO # 0.5 103/ul Normal 0.0-0.7 [facility] Comment on above: Performed By: #### C BC #### [facility] [address] [place] [address] Dr. Tg Fierro Eosinophils/100 WBC (Bld) 7.3 % Critically high 0.9-7.0 [facility] Comment on above: Performed By: #### C BC #### [facility] [address] [place] [address] Dr. Tg Fierro Erythrocyte distribution width (RBC) [Ratio] 13.4 % Normal 11.0-15.0 [facility] Comment on above: Performed By: #### C BC #### [facility] [address] [place] [address] Dr. Tg Fierro Hematocrit (Bld) [Volume fraction] 37.1 % Normal 36.0-48.0 [facility] Comment on above: Performed By: #### C BC #### [facility] [address] [place] [address] Dr. Tg Fierro Hemoglobin (Bld) [Mass/Vol] 12.9 g/dL Normal 12.0-16.0 [facility] Comment on above: Performed By: #### C BC #### [facility] [address] [place] [address] Dr. Tg Fierro IG # 0.03 10e3/ul Normal 0.00-0.03 [facility] Comment on above: Performed By: #### C BC #### [facility] [address] [place] [address] Dr. Tg Fierro IG % 0.5 % Normal 0.0-0.5 [facility] Comment on above: Performed By: #### C BC #### [facility] [address] [place] [address] Dr. Tg Fierro LYMPH # 2.3 103/ul Normal 1.2-3.8 [facility] Comment on above: Performed By: #### C BC #### [facility] [address] [place] [address] Dr. Tg Fierro Lymphocytes/100 WBC (Bld) 34.9 % Normal 20.5-60.0 [facility] Comment on above: Performed By: #### C BC #### [facility] [address] [place] [address] Dr. Tg Fierro MANUAL DIFF REQ NO Normal [facility] Comment on above: Performed By: #### C BC #### [facility] [address] [place] [address] Dr. Tg Fierro MCH (RBC) [Entitic mass] 31.0 pg Normal 26.7-34.0 [facility] Comment on above: Performed By: #### C BC #### [facility] [address] [place] [address] Dr. Tg Fierro MCHC (RBC) [Mass/Vol] 34.8 g/dL Normal 29.9-35.2 [facility] Comment on above: Performed By: #### C BC #### [facility] [address] [place] [address] Dr. Tg Fierro MCV (RBC) [Entitic vol] 89.2 fL Normal 81.0-99.0 [facility] Comment on above: Performed By: #### C BC #### [facility] [address] [place] [address] Dr. Tg Fierro MONO # 0.4 103/ul Normal 0.3-0.8 [facility] Comment on above: Performed By: #### C BC #### [facility] [address] [address] [address] Tg Fierro Monocytes/100 WBC (Bld) 6.1 % Normal 1.7-12.0 [facility] Comment on above: Performed By: #### C BC #### [facility] [address] [address] [address] Tg Fierro NEUT # 3.3 103/ul Normal 1.4-6.5 [facility] Comment on above: Performed By: #### C BC #### [facility] [address] [address] [address] Tg Fierro Neutrophils/100 WBC (Bld) 50.4 % Normal 43.0-75.0 [facility] Comment on above: Performed By: #### C BC #### [facility] [address] [place] [address] Dr. Tg Fierro Platelet mean volume (Bld) [Entitic vol] 8.6 fL Critically low 9.5-13.5 [facility] Comment on above: Performed By: #### C BC #### [facility] [address] [place] [address] Dr. Tg Fierro PLT 336 103/ul Normal 150-450 [facility] Comment on above: Performed By: #### C BC #### [facility] [address] [place] [address] Dr. Tg Fierro RBC 4.16 106/ul Critically low 4.20-5.40 [facility] Comment on above: Performed By: #### C BC #### [facility] [address] [place] [address] Dr. Tg Firero WBC 6.4 103/ul Normal 4.0-11.0 [facility] Comment on above: Performed By: #### C BC #### [facility] [address] [place] [address] Dr. Tg Fierro PROF 14(COMP METB)on 023 Albumin [Mass/Vol] 3.9 g/dL Normal 3.4-5.0 [facility] Comment on above: Performed By: #### P T #### [facility] [address] [address] [address] Tg Fierro Albumin/Globulin [Mass ratio] 1.3 {ratio} Normal [facility] Comment on above: Performed By: #### P T #### [facility] [address] [place] [address] Dr. Tg Fierro ALP [Catalytic activity/Vol] 60 U/L Normal 46-116 [facility] Comment on above: Performed By: #### P T #### [facility] [address] [place] [address] Dr. Tg Fierro ALT [Catalytic activity/Vol] 21 U/L Normal 14-59 [facility] Comment on above: Performed By: #### P T #### [facility] [address] [place] [address] Dr. Tg Fierro Anion gap [Moles/Vol] 15.2 mmol/L Normal [facility] Comment on above: Performed By: #### P T #### [facility] [address] [place] [address] Dr. Tg Fierro AST [Catalytic activity/Vol] 14 U/L Critically low 15-37 [facility] Comment on above: Performed By: #### P T #### [facility] [address] [place] [address] Dr. Tg Fierro Bilirubin [Mass/Vol] 0.4 mg/dL Normal 0.2-1.0 [facility] Comment on above: Performed By: #### P T #### [facility] [address] [place] [address] Dr. Tg Fierro Calcium [Mass/Vol] 9.3 mg/dL Normal 8.5-10.1 [facility] Comment on above: Performed By: #### P T #### [facility] [address] [place] [address] Dr. Tg Fierro Chloride [Moles/Vol] 102 mmol/L Normal 98-107 [facility] Comment on above: Performed By: #### P T #### [facility] [address] [address] [address] Tg Fierro CO2 [Moles/Vol] 26.8 mmol/L Normal 21.0-32.0 [facility] Comment on above: Performed By: #### P T #### [facility] [address] [address] [address] Tg Fierro Creatinine [Mass/Vol] 0.74 mg/dL Normal 0.55-1.02 [facility] Comment on above: Performed By: #### P T #### [facility] [address] [place] [address] Dr. Tg Fierro EGFR-AF MOSOTHO >60 Normal >=60 [facility] Comment on above: Performed By: #### P T #### [facility] [address] [place] [address] Dr. Tg Fierro EGFR-NON AF MOSOTHO >60 Normal >=60 [facility] Comment on above: Performed By: #### P T #### [facility] [address] [place] [address] Dr. Tg Fierro Globulin (S) [Mass/Vol] 3.1 g/dL Normal [facility] Comment on above: Performed By: #### P T #### [facility] [address] [place] [address] Dr. Tg Fierro Glucose [Mass/Vol] 148 mg/dL Critically high 74-106 [facility] Comment on above: Performed By: #### P T #### [facility] [address] [place] [address] Dr. Tg Fierro Potassium [Moles/Vol] 4.0 mmol/L Normal 3.5-5.1 [facility] Comment on above: Performed By: #### P T #### [facility] [address] [place] [address] Dr. Tg Fierro Protein [Mass/Vol] 7.0 g/dL Normal 6.4-8.2 [facility] Comment on above: Performed By: #### P T #### [facility] [address] [place] [address] Dr. Tg Fierro Sodium [Moles/Vol] 140 mmol/L Normal 136-145 [facility] Comment on above: Performed By: #### P T #### [facility] [address] [place] [address] Dr. Tg Fierro Urea nitrogen [Mass/Vol] 12.0 mg/dL Normal 7.0-18.0 [facility] Comment on above: Performed By: #### P T #### [facility] [address] [place] [address] Dr. Tg Fierro Urea nitrogen/Creatinine [Mass ratio] 16.2 mg/mg Normal [facility] Comment on above: Performed By: #### P T #### [facility] [address] [place] [address] Dr. Tg Fierro [facility]REN 2022 SED RATE 30 mm/hr Normal <=30 [facility] Comment on above: Performed By: #### S EDR #### [facility] [address] [place] [address] Dr. Tg Fierro CBC AUTO DIFFon 04-15-2022 BASO # 0.1 103/ul Normal 0.0-0.1 [facility] Comment on above: Performed By: #### C BC #### [facility] [address] [place] [address] Dr. Tg Fierro Basophils/100 WBC (Bld) 0.6 % Normal 0.2-2.0 [facility] Comment on above: Performed By: #### C BC #### [facility] [address] [place] [address] Dr. Tg Fierro EO # 0.2 103/ul Normal 0.0-0.7 [facility] Comment on above: Performed By: #### C BC #### [facility] [address] [place] [address] Dr. Tg Fierro Eosinophils/100 WBC (Bld) 3.1 % Normal 0.9-7.0 [facility] Comment on above: Performed By: #### C BC #### [facility] [address] [place] [address] Dr. Tg Fierro Erythrocyte distribution width (RBC) [Ratio] 13.6 % Normal 11.0-15.0 [facility] Comment on above: Performed By: #### C BC #### [facility] [address] [place] [address] Dr. Tg Fierro Hematocrit (Bld) [Volume fraction] 42.3 % Normal 36.0-48.0 [facility] Comment on above: Performed By: #### C BC #### [facility] [address] [place] [address] Dr. Tg Fierro Hemoglobin (Bld) [Mass/Vol] 13.2 g/dL Normal 12.0-16.0 [facility] Comment on above: Performed By: #### C BC #### [facility] [address] [place] [address] Dr. Tg Fierro IG # 0.04 10e3/ul Critically high 0.00-0.03 [facility] Comment on above: Performed By: #### C BC #### [facility] [address] [place] [address] Dr. Tg Fierro IG % 0.5 % Normal 0.0-0.5 [facility] Comment on above: Performed By: #### C BC #### [facility] [address] [place] [address] Dr. Tg Fierro LYMPH # 2.5 103/ul Normal 1.2-3.8 [facility] Comment on above: Performed By: #### C BC #### [facility] [address] [place] [address] Dr. Tg Fierro Lymphocytes/100 WBC (Bld) 31.6 % Normal 20.5-60.0 [facility] Comment on above: Performed By: #### C BC #### [facility] [address] [place] [address] Dr. Tg Fierro MANUAL DIFF REQ NO Normal [facility] Comment on above: Performed By: #### C BC #### [facility] [address] [place] [address] Dr. Tg Fierro MCH (RBC) [Entitic mass] 30.3 pg Normal 26.7-34.0 [facility] Comment on above: Performed By: #### C BC #### [facility] [address] [place] [address] Dr. Tg Fierro MCHC (RBC) [Mass/Vol] 31.2 g/dL Normal 29.9-35.2 [facility] Comment on above: Performed By: #### C BC #### [facility] [address] [place] [address] Dr. Tg Fierro MCV (RBC) [Entitic vol] 97.0 fL Normal 81.0-99.0 [facility] Comment on above: Performed By: #### C BC #### [facility] [address] [place] [address] Dr. Tg Fierro MONO # 0.5 103/ul Normal 0.3-0.8 [facility] Comment on above: Performed By: #### C BC #### [facility] [address] [place] [address] Dr. Tg Fierro Monocytes/100 WBC (Bld) 6.3 % Normal 1.7-12.0 [facility] Comment on above: Performed By: #### C BC #### [facility] [address] [place] [address] Dr. Tg Fierro NEUT # 4.5 103/ul Normal 1.4-6.5 [facility] Comment on above: Performed By: #### C BC #### [facility] [address] [place] [address] Dr. Tg Fierro Neutrophils/100 WBC (Bld) 57.9 % Normal 43.0-75.0 [facility] Comment on above: Performed By: #### C BC #### [facility] [address] [place] [address] Dr. Tg Fierro Platelet mean volume (Bld) [Entitic vol] 8.6 fL Critically low 9.5-13.5 [facility] Comment on above: Performed By: #### C BC #### [facility] [address] [place] [address] Dr. Tg Fierro PLT 295 103/ul Normal 150-450 [facility] Comment on above: Performed By: #### C BC #### [facility] [address] [place] [address] Dr. Tg Fierro RBC 4.36 106/ul Normal 4.20-5.40 [facility] Comment on above: Performed By: #### C BC #### [facility] [address] [address] [address] Tg Fierro WBC 7.8 103/ul Normal 4.0-11.0 [facility] Comment on above: Performed By: #### C BC #### [facility] [address] [place] [address] Dr. Tg Fierro PROF 14(COMP METB)on 022 Albumin [Mass/Vol] 4.5 g/dL Normal 3.4-5.0 [facility] Comment on above: Performed By: #### C MP #### [facility] [address] [place] [address] Dr. Tg Fierro Albumin/Globulin [Mass ratio] 1.5 {ratio} Normal [facility] Comment on above: Performed By: #### C MP #### [facility] [address] [place] [address] Dr. Tg Fierro ALP [Catalytic activity/Vol] 62 U/L Normal 46-116 [facility] Comment on above: Performed By: #### C MP #### [facility] [address] [place] [address] Dr. Tg Fierro ALT [Catalytic activity/Vol] 25 U/L Normal 14-59 [facility] Comment on above: Performed By: #### C MP #### [facility] [address] [place] [address] Dr. Tg Fierro Anion gap [Moles/Vol] 10.6 mmol/L Normal [facility] Comment on above: Performed By: #### C MP #### [facility] [address] [place] [address] Dr. Tg Fierro AST [Catalytic activity/Vol] 12 U/L Critically low 15-37 [facility] Comment on above: Performed By: #### C MP #### [facility] [address] [address] [address] Tg Fierro Bilirubin [Mass/Vol] 0.5 mg/dL Normal 0.2-1.0 [facility] Comment on above: Performed By: #### C MP #### [facility] [address] [address] [address] Tg Fierro Calcium [Mass/Vol] 9.8 mg/dL Normal 8.5-10.1 [facility] Comment on above: Performed By: #### C MP #### [facility] [address] [address] [address] Tg Fierro Chloride [Moles/Vol] 102 mmol/L Normal 98-107 [facility] Comment on above: Performed By: #### C MP #### [facility] [address] [place] [address] Dr. Tg Fierro CO2 [Moles/Vol] 31.8 mmol/L Normal 21.0-32.0 [facility] Comment on above: Performed By: #### C MP #### [facility] [address] [address] [address] Tg Fierro Creatinine [Mass/Vol] 0.88 mg/dL Normal 0.55-1.02 [facility] Comment on above: Performed By: #### C MP #### [facility] [address] [address] [address] Tg Fierro EGFR-AF MOSOTHO >60 Normal >=60 [facility] Comment on above: Performed By: #### C MP #### [facility] [address] [address] [address] Tg Fierro EGFR-NON AF MOSOTHO >60 Normal >=60 [facility] Comment on above: Performed By: #### C MP #### [facility] [address] [place] [address] Dr. Tg Fierro Globulin (S) [Mass/Vol] 3.1 g/dL Normal [facility] Comment on above: Performed By: #### C MP #### [facility] [address] [address] [address] Tg Fierro Glucose [Mass/Vol] 187 mg/dL Critically high 74-106 [facility] Comment on above: Performed By: #### C MP #### [facility] [address] [address] [address] Tg Fierro Potassium [Moles/Vol] 4.4 mmol/L Normal 3.5-5.1 [facility] Comment on above: Performed By: #### C MP #### [facility] [address] [address] [address] Tg Fierro Protein [Mass/Vol] 7.6 g/dL Normal 6.4-8.2 [facility] Comment on above: Performed By: #### C MP #### [facility] [address] [place] [address] Dr. Tg Fierro Sodium [Moles/Vol] 140 mmol/L Normal 136-145 [facility] Comment on above: Performed By: #### C MP #### [facility] [address] [place] [address] Dr. Tg Fierro Urea nitrogen [Mass/Vol] 14.0 mg/dL Normal 7.0-18.0 [facility] Comment on above: Performed By: #### C MP #### [facility] [address] [place] [address] Dr. Tg Fierro Urea nitrogen/Creatinine [Mass ratio] 15.9 mg/mg Normal [facility] Comment on above: Performed By: #### C MP #### [facility] [address] [place] [address] Dr. Tg Fierro SED RATE WESTERGRENon 2021 SED RATE 5 mm/hr Normal <=30 [facility] Comment on above: Performed By: #### S EDR #### [facility] [address] [place] [address] Dr. Tg Fierro CBC AUTO DIFFon 02-07-2022 BASO # 0.0 103/ul Normal 0.0-0.1 [facility] Comment on above: Performed By: #### P T #### [facility] [address] [place] [address] Dr. Tg Fierro Basophils/100 WBC (Bld) 0.6 % Normal 0.2-2.0 [facility] Comment on above: Performed By: #### P T #### [facility] [address] [place] [address] Dr. Tg Fierro EO # 0.4 103/ul Normal 0.0-0.7 [facility] Comment on above: Performed By: #### P T #### [facility] [address] [place] [address] Dr. Tg Fierro Eosinophils/100 WBC (Bld) 5.4 % Normal 0.9-7.0 [facility] Comment on above: Performed By: #### P T #### [facility] [address] [place] [address] Dr. Tg Fierro Erythrocyte distribution width (RBC) [Ratio] 13.5 % Normal 11.0-15.0 [facility] Comment on above: Performed By: #### P T #### [facility] [address] [place] [address] Dr. Tg Fierro Hematocrit (Bld) [Volume fraction] 39.4 % Normal 36.0-48.0 [facility] Comment on above: Performed By: #### P T #### [facility] [address] [place] [address] Dr. Tg Fierro Hemoglobin (Bld) [Mass/Vol] 12.8 g/dL Normal 12.0-16.0 [facility] Comment on above: Performed By: #### P T #### [facility] [address] [place] [address] Dr. Tg Fierro IG # 0.02 10e3/ul Normal 0.00-0.03 [facility] Comment on above: Performed By: #### P T #### [facility] [address] [place] [address] Dr. Tg Fierro IG % 0.3 % Normal 0.0-0.5 [facility] Comment on above: Performed By: #### P T #### [facility] [address] [place] [address] Dr. Tg Fierro LYMPH # 2.4 103/ul Normal 1.2-3.8 [facility] Comment on above: Performed By: #### P T #### [facility] [address] [place] [address] Dr. Tg Fierro Lymphocytes/100 WBC (Bld) 36.2 % Normal 20.5-60.0 [facility] Comment on above: Performed By: #### P T #### [facility] [address] [place] [address] Dr. Tg Fierro MANUAL DIFF REQ NO Normal [facility] Comment on above: Performed By: #### P T #### [facility] [address] [place] [address] Dr. Tg Fierro MCH (RBC) [Entitic mass] 31.0 pg Normal 26.7-34.0 [facility] Comment on above: Performed By: #### P T #### [facility] [address] [place] [address] Dr. Tg Fierro MCHC (RBC) [Mass/Vol] 32.5 g/dL Normal 29.9-35.2 [facility] Comment on above: Performed By: #### P T #### [facility] [address] [place] [address] Dr. Tg Fierro MCV (RBC) [Entitic vol] 95.4 fL Normal 81.0-99.0 [facility] Comment on above: Performed By: #### P T #### [facility] [address] [place] [address] Dr. Tg Fierro MONO # 0.5 103/ul Normal 0.3-0.8 [facility] Comment on above: Performed By: #### P T #### [facility] [address] [place] [address] Dr. Tg Fierro Monocytes/100 WBC (Bld) 8.0 % Normal 1.7-12.0 [facility] Comment on above: Performed By: #### P T #### [facility] [address] [place] [address] Dr. Tg Fierro NEUT # 3.3 103/ul Normal 1.4-6.5 [facility] Comment on above: Performed By: #### P T #### [facility] [address] [place] [address] Dr. Tg Fierro Neutrophils/100 WBC (Bld) 49.5 % Normal 43.0-75.0 [facility] Comment on above: Performed By: #### P T #### [facility] [address] [place] [address] Dr. gT Fierro Platelet mean volume (Bld) [Entitic vol] 8.7 fL Critically low 9.5-13.5 [facility] Comment on above: Performed By: #### P T #### [facility] [address] [place] [address] Dr. Tg Fierro PLT 276 103/ul Normal 150-450 [facility] Comment on above: Performed By: #### P T #### [facility] [address] [place] [address] Dr. Tg Fierro RBC 4.13 106/ul Critically low 4.20-5.40 [facility] Comment on above: Performed By: #### P T #### [facility] [address] [place] [address] Dr. Tg Fierro WBC 6.7 103/ul Normal 4.0-11.0 [facility] Comment on above: Performed By: #### P T #### [facility] [address] [place] [address] Dr. Tg Fierro GLYCOHEMOGLOBIN A1Con 2021 ADA RECOMMENDATION SEE BELOW Normal [facility] Comment on above: Result Comment: ADA RECOMMENDED LIMIT 4.0 - 6.0 ADA THERAPEUTIC TARGET < 7.0 ACTION SUGGESTED > 7.0 Performed By: #### A 1C #### [facility] [address] [place] [address] Dr. Tg Fierro Glucose [Mass/Vol] 151 mg/dL Normal [facility] Comment on above: Performed By: #### A 1C #### [facility] [address] [place] [address] Dr. Tg Fierro HbA1c (Bld) [Mass fraction] 6.9 % Critically high 4.5-6.2 [facility] Comment on above: Performed By: #### A 1C #### [facility] [address] [place] [address] Dr. Tg Fierro PROF 14(COMP METB)on 022 Albumin [Mass/Vol] 3.8 g/dL Normal 3.4-5.0 [facility] Comment on above: Performed By: #### P T #### [facility] [address] [place] [address] Dr. Tg Fierro Albumin/Globulin [Mass ratio] 1.3 {ratio} Normal [facility] Comment on above: Performed By: #### P T #### [facility] [address] [place] [address] Dr. Tg Fierro ALP [Catalytic activity/Vol] 43 U/L Critically low 46-116 [facility] Comment on above: Performed By: #### P T #### [facility] [address] [place] [address] Dr. Tg Fierro ALT [Catalytic activity/Vol] 19 U/L Normal 14-59 [facility] Comment on above: Performed By: #### P T #### [facility] [address] [place] [address] Dr. Tg Fierro Anion gap [Moles/Vol] 13.7 mmol/L Normal [facility] Comment on above: Performed By: #### P T #### [facility] [address] [place] [address] Dr. Tg Fierro AST [Catalytic activity/Vol] 11 U/L Critically low 15-37 [facility] Comment on above: Performed By: #### P T #### [facility] [address] [place] [address] Dr. Tg Fierro Bilirubin [Mass/Vol] 0.4 mg/dL Normal 0.2-1.0 [facility] Comment on above: Performed By: #### P T #### [facility] [address] [place] [address] Dr. Tg Fierro Calcium [Mass/Vol] 9.1 mg/dL Normal 8.5-10.1 [facility] Comment on above: Performed By: #### P T #### [facility] [address] [address] [address] Tg Fierro Chloride [Moles/Vol] 104 mmol/L Normal 98-107 [facility] Comment on above: Performed By: #### P T #### [facility] [address] [address] [address] Tg Fierro CO2 [Moles/Vol] 28.5 mmol/L Normal 21.0-32.0 [facility] Comment on above: Performed By: #### P T #### [facility] [address] [place] [address] Dr. Tg Fierro Creatinine [Mass/Vol] 0.77 mg/dL Normal 0.55-1.02 [facility] Comment on above: Performed By: #### P T #### [facility] [address] [place] [address] Dr. Tg Fierro EGFR-AF MOSOTHO >60 Normal >=60 [facility] Comment on above: Performed By: #### P T #### [facility] [address] [place] [address] Dr. Tg Fierro EGFR-NON AF MOSOTHO >60 Normal >=60 [facility] Comment on above: Performed By: #### P T #### [facility] [address] [place] [address] Dr. Tg Fierro Globulin (S) [Mass/Vol] 3.0 g/dL Normal [facility] Comment on above: Performed By: #### P T #### [facility] [address] [address] [address] Tg Fierro Glucose [Mass/Vol] 124 mg/dL Critically high 74-106 [facility] Comment on above: Performed By: #### P T #### [facility] [address] [place] [address] Dr. Tg Fierro Potassium [Moles/Vol] 4.2 mmol/L Normal 3.5-5.1 [facility] Comment on above: Performed By: #### P T #### [facility] [address] [address] [address] Tg Fierro Protein [Mass/Vol] 6.8 g/dL Normal 6.4-8.2 [facility] Comment on above: Performed By: #### P T #### [facility] [address] [address] [address] Tg Fierro Sodium [Moles/Vol] 142 mmol/L Normal 136-145 [facility] Comment on above: Performed By: #### P T #### [facility] [address] [address] [address] Tg Fierro Urea nitrogen [Mass/Vol] 12.0 mg/dL Normal 7.0-18.0 [facility] Comment on above: Performed By: #### P T #### [facility] [address] [address] [address] Tg Fierro Urea nitrogen/Creatinine [Mass ratio] 15.6 mg/mg Normal [facility] Comment on above: Performed By: #### P T #### [facility] [address] [address] [address] Tg Fierro SED RATE formerly [facility] 2021 SED RATE 8 mm/hr Normal <=30 [facility] Comment on above: Performed By: #### C MP #### [facility] [address] [address] [address] gT Fierro COVID Quick Testingon 2020 Result Positive [facility] Other Vital Signs Date Time Vital Sign Value Performing Clinician Facility 03-26-2023 13:15-040 Body height 160.02 cm MD Jayme Perez Work Phone: [facility] 03-26-2023 13:15-040 Body temperature 98.2 [degF] MD Jayme Perez Work Phone: [facility] 03-26-2023 13:15040 Body weight 66 kg MD Jayme Perez Work Phone: [facility] 03-26-2023 13:15-0400 Diastolic blood pressure 71 mm[Hg] MD Jayme Perez Work Phone: [facility] 03-26-2023 13:15-0400 Heart rate 87 /min MD Jayme Perez Work Phone: [facility] 03-26-2023 13:15-0400 Respiratory rate 16 /min MD Jayme Perez Work Phone: [facility] 03-26-2023 13:15-0400 SaO2% (BldA) [Mass fraction] 97 % MD Jayme Perez Work Phone: [facility] 03-26-2023 13:15-0400 Systolic blood pressure 117 mm[Hg] MD Jayme Perez Work Phone: [facility] 05-21-2021 13:15-0500 Body height 160.02 cm Astrid Baker Other [facility] Other 05-21-2021 13:15-0500 Body mass index (BMI) [Ratio] 23.91 kg/m2 Astrid Baker Other [facility] Other 05-21-2021 13:15-0500 Body temperature 97.3 [degF] Astrid Baker Other [facility] Other 05-21-2021 13:15-0500 Body weight 61.24 kg Astrid Baker Other [facility] Other 05-21-2021 13:15-0500 SaO2% (BldA) [Mass fraction] 94 % Astrid Baker Other [facility] Other Encounters Encounter Date Encounter Type Care Provider Facility Start: 07-10-2023 End: 07-10-2023 ambulatory FELICIAERIC GILLESPIEER Not Available Start: 07-02-2023 End: 07-02-2023 ambulatory FELICIAZULEIMA HITCHCOCKHLER Not Available Start: 06-25-2023 End: 06-25-2023 ambulatory FELICIA HITCHCOCKHLER Not Available Start: 06-18-2023 End: 06-18-2023 ambulatory FELICIA D CORETTAHLER Not Available Start: 04-07-2023 End: 04-07-2023 Departed Referred MD Jayme Perez Work Phone: [facility] [place] Start: 04-07-2023 End: 04-08-2023 ambulatory Williams SHEPHERD Facility:[facility] Start: 03-26-2023 End: 03-26-2023 ambulatory Williams Shepherd Facility:[facility] Start: 03-26-2023 End: 03-26-2023 Patient encounter procedure MD Jayme Perez Work Phone: [facility] Work Phone: Start: 03-20-2023 End: 03-21-2023 ambulatory Williams SHEPHERD Facility:[facility] Start: 03-20-2023 End: 03-20-2023 Lab Drop off Williams SHEPHERD [facility] Start: 03-20-2023 End: 03-20-2023 Patient encounter procedure Williams SHEPHERD [facility] Start: 02-03-2023 End: 02-04-2023 ambulatory Williams SHEPHERD Facility:[facility] Start: 11-11-2022 End: 12-11-[address] JYAME PEREZ . Facility:[facility] Start: 10-25-2022 End: 10-26-[address] RADAMES MONTEIRO Facility:[facility] Start: 10-14-2022 End: 10-15-[address] JAYME PEREZ . Facility:[facility] Start: 09-24-2022 End: 09-25-[address] RADAMES MONTEIRO Facility:[facility] Start: 09-09-2022 End: 09-10-[address] JAYME PEREZ . Facility:[facility] Start: 09-02-2022 End: 09-03-[address] JAYME PEREZ . Facility:[facility] Start: 08-09-2022 End: 08-10-[address] JAYME PREEZ . Facility:[facility] Start: 08-05-2022 End: 08-06-[address] RADAMES MONTEIRO Facility:[facility] Start: 04-15-2022 End: 04-16-[address] RADAMES MONTEIRO Facility:[facility] Start: 02-20-2022 End: 02-21-[address] RADAMES MONTEIRO Facility:[facility] Start: 02-07-2022 End: 02-08-[address] JAYME PEREZ . Facility:[facility] Start: 05-21-2021 End: 05-21-2021 ambulatory Astrid Baker Other [facility] Other Start: 05-21-2021 Office outpatient visit 15 minutes Astrid Baker [facility] Procedures Date Procedure Procedure Detail Performing Clinician Start: 08-26-2019 Extracorporeal shock wave lithotripsy of calculus of kidney [facility] Start: 04-12-2016 Cystoscopic laser lithotripsy of ureteric calculus [facility] Start: 03-28-2016 Cystoscopic removal of ureteric stent [facility] Start: 02-15-2016 Extracorporeal shock wave lithotripsy of calculus of kidney Williams SHEPHERD Start: 01-16-2016 Endoscopic retrograd e pyelogram [facility] Start: 06-29-2013 Extracorporeal shock wave lithotripsy of calculus of kidney Williams SHEPHERD Start: 09-10-2010 Cystoscopic removal of ureteric stent [facility] Start: 08-29-2010 Extracorporeal shock wave lithotripsy of calculus of kidney [facility] Start: 08-23-2010 Cystoscopic insertio n of ureteric stent [facility] Start: 03-02-2008 Endoscopic retrograd e pyelogram [facility] Start: 10-16-2004 Cystoscopic anastomo sis of ureter to bladder with insertion of stent into ureter [facility] Plan of Treatment Date Care Activity Detail Author Start: 07-12-2024 ambulatory Ambulatory Facility:[facility] Start: 04-07-2023 Abdomen endoscopy OR Cysto/Retro/Stent/Stone/H olmium Laser (Right) [facility] Immunizations Immunization Date Immunization Notes Care Provider Yaya oswald NEGATED: Highlighted row has not occurred!09-21-2019 influenza virus vaccine, live, attenuated, for intranasal use [facility] NEGATED: Highlighted row has not occurred!08-20-2019 influenza virus vaccine, live, attenuated, for intranasal use [facility] Payers Date Payer Category Payer Self-pay [id number] 2022 Medicare [id number] [id number]. 1958 Medicare [id number] 2.1 [id number]. 1959 Unknown [id number] 1946 Unknown [id number] 2.16.84 0.1.960920.3.579.2.593 1946 Unknown [id number] 2.16.84 0.1.844666.3.579.2.593 1946 Unknown [id number] 2.16.84 0.1.871059.3.579.2.593 1946 Unknown [id number] 2.16.84 0.1.497841.3.579.2.593 1946 Unknown [id number] 2.16.84 0.1.390364.3.579.2.593 1946 Unknown [id number] 2.16.84 0.1.153379.3.579.2.593 1946 Unknown [id number] 2.16.84 0.1.595939.3.579.2.593 1946 Unknown [id number] 2.16.84 0.1.032812.3.579.2.593 1946 Unknown [id number] 2.16.84 0.1.327265.3.579.2.593 1946 Unknown [id number] 2.16.84 0.1.757738.3.579.2.593 1946 Unknown [id number] 2.16.84 0.1.665427.3.579.2.593 1946 Unknown [id number] 2.16.84 0.1.874782.3.579.2.593 1946 Unknown [id number] 2.16.84 0.1.590810.3.579.2.593 1946 Unknown [id number] 2.16.8 40.1.411429.3.579.2.727 1946 Unknown [id number] 2.16.8 40.1.893564.3.579.2.727 1946 Unknown [id number] 2.16.8 40.1.733676.3.579.2.727 1946 Unknown [id number] 2.16.8 40.1.254330.3.579.2.727 1946 Unknown [id number] 2.16.840 .1.953622.3.579.2.1259 1946 Unknown [id number] 2.16.840 .1.526879.3.579.2.1259 1946 Unknown [id number] 2.16.840 .1.664300.3.579.2.1259 1946 Unknown [id number] 2.16.840 .1.506771.3.579.2.1259 Unknown [id number] 2.16.8 40.1.407239.3.579.2.531 Unknown [id number] 2.16.8 40.1.856446.3.579.2.531 Social History Date Type Detail Facility Sex Assigned At [facility] Other Start: 02-03-2023 End: 03-26-2023 Tobacco smoking status Ex-smoker (finding) [facility] Tobacco smoking status Never [facility] Sex Assigned At Female [facility] Start: 1945 Sex Assigned At Female [facility] Clinical Note 02-21-2022 Note Date & Type [...] authenticated by: BLANCA ZAVALA Date: 2022-02-21 07:28 [facility] Evaluation + Plan note Note Date & Type Note Facility Evaluation + Plan note Future Appointments Appointment Date:07/12/2024 10:45:00 AM Scheduled Provider:Williams SHEPHERD MD Location:[facility] Appointment Type:URO Office Visit [facility] Evaluation + Plan note Note Date & Type Note Facility Evaluation + Plan note Future Appointments Appointment Date:07/12/2024 10:45:00 AM Scheduled Provider:Williams SHEPHERD MD Location:[facility] Appointment Type:URO Office Visit Diagnostic Tests PendingCalculi Analysis Urinary 03/20/23 [facility] Evaluation note Note Date & Type Note Facility Evaluation note [facility] Other Evaluation note Note Date & Type Note Facility Evaluation note No assessment information availa [facility] Work Phone: History general Narrative - Reported Note Date & Type Note Facility History general Narrative - Reported [facility] [employer] Other Hospital course Narrative Note Date & Type Note Facility Hospital course Narrative No data available for this section [facility] Hospital Discharge instructions Note Date & Type Note Facility Hospital Discharge instructions No data available for this section [facility] Progress note Note Date & Type Note Facility Progress note No data available for this section [facility] Summary Purpose Family History No Family History [...] and content) DATE CREATED AUTHOR 12/20/2022 [facility] DATE CREATED AUTHOR AUTHOR'S ORGANIZ ATION 04/15/2023 [facility] DATE CREATED AUTHOR AUTHOR'S ORGANIZ ATION 06/09/2023 [facility] DATE CREATED AUTHOR AUTHOR'S ORGANIZ ATION 07/12/2023 [facility] EPIC Patient Care team informatio [...] BE BASED ON THE PRIMARY CLINICAL RECORDS. [facility]. provides no warranty or guarantee of the accuracy or completeness of information in this document.
[2023-07-22 11:15] LABS: Prothrombin Time 32.7 sec (9.0-11.6)
[2023-07-22 11:20] LABS: Alanine Aminotransferase 25 U/L (14-59); Albumin Level 3.6 g/dL (3.4-5.0); Alkaline Phosphatase 54 U/L (46-116); Anion Gap 12.2; Aspartate Amino Transferase 17 U/L (15-37); BUN Creatinine Ratio 14.3; Bilirubin Total 0.4 mg/dL (0.2-1.0); Calcium 9.2 mg/dL (8.5-10.1); Carbon Dioxide 27.5 mmol/L (21.0-32.0); Chloride 101 mmol/L (98-107); Estimated GFR (African America >60 (>=60); Estimated GFR (Non-African Ame 55 (>=60); Globulin 3.6 g/dL; Glucose 221 mg/dL (74-106); Potassium 3.7 mmol/L (3.5-5.1); Sodium 137 mmol/L (136-145); Total Protein 7.2 g/dL (6.4-8.2)
== END 2023-07-22 10:06 | disposition home or self-care (01) ==
LOC: LAB 10:09
PROVIDERS: PCP Family Medicine; Visit Provider Family Medicine
DX: E11.22 Type 2 diabetes mellitus with diabetic chronic kidney disease (principal); N18.31 Chronic kidney disease, stage 3a; I48.0 Paroxysmal atrial fibrillation; Z51.81 Encounter for therapeutic drug level monitoring; Z79.01 Long term (current) use of anticoagulants; L40.59 Other psoriatic arthropathy; Z79.899 Other long term (current) drug therapy
CPT/HCPCS: 36415; 80053; 85610

== ENCOUNTER 2023-08-05 11:21 | Outpatient (OUT) | payer MEDICARE, SELFPAY ==
--- OUTSIDE RECORDS SUMMARY | 2023-08-05 11:32 | XMS_ITS | CCD ---
Author Name Unknown Address [address] [place] [address] Organization [facility] Care Team Providers Care Financial Management Name Role Phone Astrid Baker Unavailable CAYETANO, DR CRUM Consulting Unavailable MONTEIRO, DR CRUM Attending Unavailable MONTEIRO, DR CRUM Admitting Unavailable HEMEYER ., DR MCKINNEY Primary Care Unavailable HEMEYER ., DR MCKINNEY Consulting Unavailable HEMEYER ., DR MCKINNEY Admdiallo Unavailable HEMEYER ., DR MCKINNEY Attending Unavailable [...] Unavailable HEMEYER ., EDINA Primary Care Unavailable HEMEYER, JAYME J Primary Care Physician Unavail able Williams SHEPHERD Attending Unavailable Williams SHEPHERD Attending Unavailable Williams SHEPHERD Admitting Unavailable Williams SHEPHERD Attending Unavailable Williams SHEPHERD Attending Unavailable Williams SHEPHERD Attending Unavailable MD Jayme Perez Primary Care Provider MD Williams Shepherd Attending Provider [phone] Williams Shepherd Admitting Unavailable Williams Shepherd Attending Unavailable Jayme Perez Primary Care Unavailable Williams Shepherd Attending Unavailable Chris, Jayme Hazel Primary Care Unavailable Williams Shepherd Admitting Unavailable Lou Glover Unavailable FELICIA THORNTON Attending Unavailable JAYME PEREZ Attending Unavailable FELICIA THORNTON Attending Unavailable FELICIA THORNTON Attending Unavailable FELICIA THORNTON Attending Unavailable Allergies Allergy Classification Reported Allergen(s) Allergy Type Date of Onset Reaction(s) Facility (6 sources) Ciprofloxacin; 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: [ciprofloxacin] Drug Allergy 03-26-20 23 anaphylaxis, Unknown (qualifier value) [facility] (1 source) sulfaSALAzine Drug Allergy rash [facility] Other (1 source) Ciprofloxacin Drug Allergy 03-30-20 13 [facility] (2 sources) Ketorolac; 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: [Toradol] Drug Allergy 03-30-20 13 [facility] (1 source) metroNIDAZOLE Drug Allergy 03-30-20 13 [facility] (1 source) NSAIDs Drug allergy (disorder) 03-30-20 13 [facility] (1 source) pioglitazone Drug Allergy 03-30-20 13 [facility] (1 source) Sulfonamides (Antibiotic) Drug allergy (disorder) 03-30-20 [facility] (6 sources) Ketorolac; 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: [ketorolac] Drug Allergy 03-26-20 Unknown (qualifier value), Nausea (finding) [facility] Comment on above: Severe (5 sources) Latex; 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: [Latex] Drug allergy 03-26-20 Blister of skin AND/OR mucosa (finding) [facility] (3 sources) Non-steroidal anti-inflammatory agent; 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: [NSAIDs] Drug allergy Unknown (qualifier value) [facility] (4 sources) pioglitazone; 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: [pioglitazone] Drug Allergy 03-26-20 Unknown (qualifier value) [facility] (3 sources) Sulfonamides (Antibiotic); 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: [sulfa drugs] Drug allergy Unknown (qualifier value) [facility] (2 sources) metroNIDAZOLE; 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: [metronidazole] Drug Allergy 03-26-20 Redness of Skin [facility] (2 sources) Sulfonamides (Antibiotic); 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: [Sulfa (Sulfonamide Antibiotics)] Allergy to substance 03-26-20 Rash [facility] (2 sources) NSAIDS (Non-Steroidal Anti-Inflamma; 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: [NSAIDS (Non-Steroidal Anti-Inflamma] Allergy to substance 03-26-20 Anaphylaxis [facility] (1 source) Ciprofloxacin Drug Allergy 03-26-20 [facility] (1 source) Ketorolac Drug Allergy 03-26-20 [facility] (1 source) pioglitazone Drug Allergy 03-26-20 [facility] (1 source) Non-steroidal anti-inflammatory agent Drug allergy rash [facility] Other (1 source) Substance with sulfonamide structure and antibacterial mechanism of action (substance) Drug allergy rash [facility] Other Medications Current Medications Medication Drug Class(es) Dates Sig (Normalized) Sig (Original) acarbose 100 mg oral tablet (5 sources) alpha-Glucosidase Inhibitor Start: 03-26-2023 take 1 tablet by mouth three times daily Acarbose (Precose) 100 mg Tablet Active 100 MG PO Three times daily March 25, 2023 11:00pm Start: 08-17-2019 acarbose Oral, TID, Refills(s) 0 Start Date: 08/17/19 Status: Ordered Acarbose Active acetaminophen 325 mg oral ta blet (3 sources) Start: 03-26-2023 Acetaminophen (Tylenol) 325 mg Tablet Active 1000 MG PO Twice daily March 25, 2023 11:00pm Start: 02-03-2023 take 1 mg by mouth e very six hours Tylenol Extra Strength 500 mg oral tablet mg tab(s), Oral, q6hr Start Date: 02/03/23 Status: Ordered [id number] 200 actuat albuter ol 0.09 mg/actuat metered dose inhaler (2 sources) beta2-Adrenergic Agonist Start: 05-21-2021 Start: 05-21-2021 take 2 puff(s) by in halation every four hours as needed Albuterol Sulfate HFA 108 (90 Base) MCG/ACT 2 puffs as needed Inhalation every 4 hrs May, Not-Taking/PRN aspirin 81 mg oral tablet (2 sources) Platelet Aggregation Inhibitor, Nonsteroidal Anti-inflammatory Drug Start: 08-17-2019 take 1 mg by mouth once daily aspirin 81 mg oral tablet mg tab(s), Oral, Daily, Refills(s) 0 Start Date: 08/17/19 Status: Ordered calcium citrate 950 mg oral tablet (3 [...] Date: 09/19/20 Status: Ordered Cyanocobalamin-Liver Extract (Vitamin S45-Xfouk) Tablet (1 source) Start: 03-26-2023 take 1 tablet by mouth once daily Cyanocobalamin-Live r Extract (Vitamin S03-Beylp) Tablet Active 1 TAB PO every day at noon March 25, 2023 11:00pm dextromethorphan hydrobromide 1.5 mg/ml / pyrilamine maleate 1.5 mg/ml oral solution (1 source) Uncompetitive T-ekxyzc-M-asparta te Receptor Antagonist, Sigma-1 Agonist Start: 07-25-2023 take 10 mL by mouth every eight hours Winona DM 7.5-7.5 MG/5ML 10 mL Orally every 8 hours for 5 days Jul, Active esomeprazole 20 mg oral tablet (3 sources) [...] Start Date: 08/20/19 Status: Ordered Insulin Glargine (2 sources) Insulin Analog Lantus Active metFORMIN hydrochloride 1000 mg oral tablet (5 sources) Biguanide Start: 03-26-2023 take 1000 mg by mouth twice daily Metformin Active 1000 MG PO Twice daily March 25, 2023 11:00pm Start: 08-17-2019 metformin Oral , Refills(s) 0 Start Date: 08/17/19 Status: Ordered metFORMIN HCl Ac tive methotrexate 2.5 mg/ml oral solution (5 sources) Folate Analog Metabolic Inhibitor Start: 03-26-2023 take 1.5 mg by mouth every week Methotrexate Active 1.5 MG PO every week March 25, 2023 11:00pm Start: 08-17-2019 methotrexate R efills(s) 0 Start Date: 08/17/19 Status: Ordered Methotrexate Sod ium Active methylPREDNISolone 4 mg oral tablet (1 source) Corticosteroid Start: 07-25-2023 methylPREDNISolone 4 MG as directed Orally for 6 Jul, Active Misc Medication (2 sources) Start: 09-19-2020 Misc Medication ironchlate Start Date: 09/19/20 Status: Ordered Multi Vitamins oral tablet (2 sources) Start: 09-19-2020 Multi Vitamins oral tablet Oral, Daily, Refill(s) 0 Start Date: 09/19/20 Status: Ordered predniSONE 2.5 mg oral tablet (5 sources) Start: 03-26-2023 take 2.5 mg by mouth once daily at bedtime Prednisone Active 2.5 MG PO Daily at bedtime March 25, 2023 11:00pm Start: 08-17-2019 predniSONE Ora l, Daily, Refills(s) 0 Start Date: 08/17/19 Status: Ordered predniSONE Not-T aking/PRN vitamin B12 (2 sources) Vitamin B12 Start: [...] day at noon March 25, 2023 11:00pm Completed/Discontinued Medications Medication Drug Class(es) Dates Sig (Normalized) Sig (Original) azithromycin 250 mg oral tablet (2 sources) Macrolide Antimicrobial Start: 05-21-2021 Azithromycin 250 MG 2 tablets on the first day, then 1 tablet daily for 4 days Orally Once a day for 5 day(s) May, Not-Taking/PRN Start: 05-21-2021 Problems Active Problems Problem Classification Problem Date [...] disorder 08-17-2019 Chronic Other aftercare (1 source) group home (current) use of anticoagulants; 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: [TAX SERVICES SPECIALIST CURRNT USE ANTICOAGULANTS] Onset: 12-11-2022 Episodic Other aftercare (5 sources) Encounter for therapeutic drug level monitoring; 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: [ENC THERAPEUTC DRUG LEVL MONITORING] Onset: 10-18-2022 Episodic Other aftercare (1 source) 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 therapy; 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: [OTH INTERMEDIATE CURRENT DRUG THERAPY] Onset: 10-31-2022 Episodic Other [...] [Encounter for preprocedural laboratory examination] Onset: 03-26-2023 Viral infection (1 source) Other specified viral diseases Episodic Past or Other Problems Problem Classification Problem Date Documented Da te Episodic/Chronic Immunizations and screening for infectious disease (1 source) Contact with and (suspected) exposure to other viral communicable diseases Onset: 05-21-2021 Resolved: 05-21-2021 Episodic Other aftercare (1 source) 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; 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: [TAX SERVICES SPECIALIST USE ORAL HYPOGLYCEMIC DX] Onset: 08-12-2022 Episodic Other aftercare (1 source) group home (current) use of insulin; 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: [TAX SERVICES SPECIALIST CURRENT USE OF INSULIN] Onset: 02-13-2022 Episodic Other connective tissue disease (4 sources) Pain in left foot; 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: [PAIN IN LEFT FOOT] Onset: 02-20-2022 Episodic Pneumonia (except that caused by tuberculosis or sexually transmitted disease) (1 source) Pneumonia, unspecified organism Onset: 05-21-2021 Resolved: 05-21-2021 Episodic Unclassified (1 source) Unclassified (1 source) Contact with and (suspected) exposure to covid-19 Z20.822 Viral infection (1 source) COVID-19 Onset: 05-21-2021 Resolved: 05-21-2021 Results Test Name Value Interpretation Reference Range Facility COVID/FLU/RSV RT-PCRon 07-25 SARS-CoV-2 (COVID-19) RNA TREASURE+probe Ql (Unsp spec) Negative [facility] Other COVID/FLU/RSV RT-PCR Negative [facility] Other COVID/FLU/RSV RT-PCR [facility] Other Calculus Analysison 03-27-20 23 Calcium oxalate dihydrate Infrared spectroscopy (Stone) [Mass fraction] 100 % Invalid Interpretation Code [facility] Comment on above: Performed By: #### 1 [id number] #### [facility] Laboratory [address] [place] [address] Color (Stone) Roper Invalid Interpretation Code [facility] Comment on above: Performed By: #### 1 [id number] #### [facility] Laboratory [address] [place] [address] Composition Comment Invalid Interpretation Code [facility] Comment on above: Result Comment: Perc entage (Represents the % composition) Performed By: #### 1 [id number] #### [facility] Laboratory [address] [place] [address] Disclaimer: Comment Invalid Interpretation Code [facility] Comment on above: Result Comment: This test was developed and its performance characteristics determined by [employer]. It has not been cleared or approved by the Food and Drug Administration. Performed at: [address] [id number] PhD Silvestre Esquivel Performed By: #### 1 [id number] #### [facility] Laboratory [address] [place] [address] Laboratory comment Noam (Report) Comment Invalid Interpretation Code [facility] Comment on above: Result Comment: Coco goode questions regarding Calculi Analysis contact [facility] at: [phone]. Performed By: #### 1 [id number] #### [facility] [address] [place] [address] Please Note: Comment Invalid Interpretation Code [facility] Comment on above: Result Comment: Calc jvaier report will follow via computer, mail or biomedical engineering professor delivery. Performed By: #### 1 [id number] #### [facility] [address] [place] [address] Size (Stone) [Entitic vol] 6x4 Invalid Interpretation Code [facility] Comment on above: Result Comment: Sing le piece received. Performed By: #### 1 [id number] #### [facility] [address] [place] [address] Specimen source subject Nom Comment Invalid Interpretation Code [facility] Comment on above: Result Comment: Not provided Performed By: #### 1 [id number] #### [facility] [address] [place] [address] Stone Photo Comment Invalid Interpretation Code [facility] Comment on above: Result Comment: Phot ograph will follow under a separate cover Performed By: #### 1 [id number] #### [facility] [address] [place] [address] Weight (Stone) 49 mg Invalid Interpretation Code [facility] Comment on above: Performed By: #### 1 [id number] #### [facility] Laboratory [address] [place] [address] Lab Reportson 03-27-2023 Lab Reports [id number] Normal [facility] Activated partial thrombopla stin time (aPTT) in platelet poor plasma by coagulation aOrdered By: Williams Shepherd on 03-26-2023 aPTT Coag (PPP) [Time] 35.9 s 25.1-36.5 [facility] Comment on above: A hematocrit value g reater than 55% may lead to inaccurate results in coagulation testing. Patients having hematocrit values >55% require a special collection tube for coagulation studies. Please contact the laboratory at [phone] for redraw instructions. Basic Metabolic Panelon 03-14 Anion gap [Moles/Vol] 13.0 mmol/L Normal 6.0-15.0 [facility] Comment on above: Performed By: #### P T, BMP, CBC, PTT #### [facility] [address] Calcium [Mass/Vol] 10.0 mg/dL Normal 8.6-10.3 [facility] Comment on above: Result Comment: PERF ORMED BY: [place] [address] PATHOLOGIST LOW RAW SUGAR CUTTER BERNIE GRAYSON M.D. Performed By: #### P T, BMP, CBC, PTT #### [address] Chloride [Moles/Vol] 104 mmol/L Normal 98-107 [facility] Comment on above: Performed By: #### P T, BMP, CBC, PTT #### [address] CO2 [Moles/Vol] 30.0 mmol/L Normal 21.0-31.0 [facility] Comment on above: Performed By: #### P T, BMP, CBC, PTT #### [address] Creatinine [Mass/Vol] 0.85 mg/dL Normal 0.60-1.20 [facility] Comment on above: Performed By: #### P T, BMP, CBC, PTT #### [place] [address] [place] GFR/1.73 sq M.predicted MDRD (S/P/Bld) [Vol rate/Area] mL/min/{1.73_m2} Normal [facility] Comment on above: Performed By: #### P T, BMP, CBC, PTT #### [place] [address] [place] Glucose [Mass/Vol] 111 mg/dL High 70-100 [facility] Comment on above: Result Comment: [facility] Glucose Reference Range is dependent on time and content of last meal. Glucose of more than 200 mg/dL in a nonstressed, ambulatory subject supports the diagnosis of Diabetes Mellitus. ADA recommended reference range Performed By: #### P T, BMP, CBC, PTT #### [facility] [address] Potassium [Moles/Vol] 5.0 mmol/L Normal 3.5-5.1 [facility] Comment on above: Performed By: #### P T, BMP, CBC, PTT #### [facility] [address] Sodium [Moles/Vol] 142 mmol/L Normal 136-145 [facility] Comment on above: Performed By: #### P T, BMP, CBC, PTT #### [facility] [address] Urea nitrogen [Mass/Vol] 12 mg/dL Normal 7-25 [facility] Comment on above: Performed By: #### P T, BMP, CBC, PTT #### [facility] [address] Basophils Auto (Bld) [#/Vol] Ordered By: Williams Shepherd on 03-26-2023 Basophils (Bld) [#/Vol] 0.0 10*3/uL 0.0-0.2 [facility] Basophils/100 WBC Auto (Bld) Ordered By: Williams Shepherd on 03-26-2023 Basophils/100 WBC (Bld) 0.8 % . [facility] Calcium [Mass/volume] in Ser um or PlasmaOrdered By: Williams Shepherd on 03-26-2023 Calcium [Mass/Vol] 10.0 mg/dL 8.6-10.3 [facility] Carbon dioxide, total [Moles /volume] in Serum or PlasmaOrdered By: Williams Shepherd on 03-26-2023 CO2 [Moles/Vol] 30.0 mmol/L 21.0-31.0 [facility] Chloride [Moles/volume] in S fartun or PlasmaOrdered By: Williams Shepherd on 03-26-2023 Chloride [Moles/Vol] 104 mmol/L 98-107 [facility] Complete Blood Count Auto Di ffon 03-26-2023 Basophils (Bld) [#/Vol] 0.0 10*3/uL Normal 0.0-0.2 [facility] Comment on above: Result Comment: PERF ORMED BY: [place] [address] PATHOLOGIST LOW RAW SUGAR CUTTER BERNIE GRAYSON M.D. Performed By: #### P T, BMP, CBC, PTT #### [facility] [address] Basophils/100 WBC (Bld) 0.8 % Normal . [facility] Comment on above: Performed By: #### P T, BMP, CBC, PTT #### [facility] [address] Eosinophils (Bld) [#/Vol] 0.3 10*3/uL Normal 0.0-0.45 [facility] Comment on above: Performed By: #### P T, BMP, CBC, PTT #### [facility] [address] [place] [address] Eosinophils/100 WBC (Bld) 4.3 % Normal . [facility] Comment on above: Performed By: #### P T, BMP, CBC, PTT #### [facility] [address] [place] [address] Erythrocyte distribution width (RBC) [Ratio] 14.8 % Normal 11.9-15.3 [facility] Comment on above: Performed By: #### P T, BMP, CBC, PTT #### [facility] [address] Hematocrit (Bld) [Volume fraction] 40.3 % Normal 34.0-46.4 [facility] Comment on above: Performed By: #### P T, BMP, CBC, PTT #### [facility] [address] [place] [address] Hemoglobin (Bld) [Mass/Vol] 13.3 g/dL Normal 11.8-15.4 [facility] Comment on above: Performed By: #### P T, BMP, CBC, PTT #### [address] Lymphocytes (Bld) [#/Vol] 2.2 10*3/uL Normal 1.00-4.8 [facility] Comment on above: Performed By: #### P T, BMP, CBC, PTT #### [address] Lymphocytes/100 WBC (Bld) 36.9 % Normal . [facility] Comment on above: Performed By: #### P T, BMP, CBC, PTT #### [address] MCH (RBC) [Entitic mass] 31.1 pg Normal 24.7-34.3 [facility] Comment on above: Performed By: #### P T, BMP, CBC, PTT #### [address] MCV (RBC) [Entitic vol] 94.4 fL Normal 80-100 [facility] Comment on above: Performed By: #### P T, BMP, CBC, PTT #### [address] Mean Corpuscular HGB Conc 32.9 g/dL Normal 32.0-35.0 [facility] Comment on above: Performed By: #### P T, BMP, CBC, PTT #### [address] Monocytes (Bld) [#/Vol] 0.5 10*3/uL Normal 0.0-0.8 [facility] Comment on above: Performed By: #### P T, BMP, CBC, PTT #### [address] Monocytes/100 WBC (Bld) 7.8 % Normal . [facility] Comment on above: Performed By: #### P T, BMP, CBC, PTT #### [address] [place] [address] [place] Neutrophils (Bld) [#/Vol] 3.0 10*3/uL Normal 1.8-7.7 [facility] Comment on above: Performed By: #### P T, BMP, CBC, PTT #### [facility] [address] [place] [address] [place] Neutrophils/100 WBC (Bld) 50.2 % Normal . [facility] Comment on above: Performed By: #### P T, BMP, CBC, PTT #### [facility] [address] [place] [address] NRBC% 0.3 /100{WBC} Normal 0-0.5 [facility] Comment on above: Performed By: #### P T, BMP, CBC, PTT #### [facility] [address] [place] [address] Platelet mean volume (Bld) [Entitic vol] 7.1 fL Normal 6.3-10.7 [facility] Comment on above: Performed By: #### P T, BMP, CBC, PTT #### [place] [address] [place] Platelets (Bld) [#/Vol] 363 10*3/uL Normal 150-450 [facility] Comment on above: Performed By: #### P T, BMP, CBC, PTT #### [address] RBC (Bld) [#/Vol] 4.27 10*6/uL Normal 3.60-5.00 [facility] Comment on above: Performed By: #### P T, BMP, CBC, PTT #### [facility] [address] [place] [address] [place] WBC (Bld) [#/Vol] 5.9 10*3/uL Normal 3.8-11.6 [facility] Comment on above: Performed By: #### P T, BMP, CBC, PTT #### [address] Creatinine [Mass/volume] in Serum or PlasmaOrdered By: Williams Shepherd on 03-26-2023 Creatinine [Mass/Vol] 0.85 mg/dL 0.60-1.20 [facility] ECG 12 lead ECGon 03-26-2023 [address] [facility] [place] [address] Electrocardiograph Report Signed Patient: Wilda Sen MR#: [id number] 8 : 1945 Acct:[id number] Age/Sex: 77 / F ADM Date: 03/26/23 Loc: PS Room: Type: [facility] Attending Dr: Williams Shepherd MD Ordering Provider: [...] By Maru Whitehead DO 03/26 190 Normal [facility] Eosinophils Auto (Bld) [#/Vo l]Ordered By: Williams Shepherd on 03-26-2023 Eosinophils (Bld) [#/Vol] 0.3 10*3/uL 0.0-0.45 [facility] Eosinophils/100 WBC Auto (Bl d)Ordered By: Williams Shepherd on 03-26-2023 Eosinophils/100 WBC (Bld) 4.3 % . [facility] Erythrocyte distribution wid th Auto (RBC) [Ratio]Ordered By: Williams Shepherd on 03-26-2023 Erythrocyte distribution width (RBC) [Ratio] 14.8 % 11.9-15.3 [facility] Glucose [Mass/volume] in Ser um or PlasmaOrdered By: Williams Shepherd on 03-26-2023 Glucose [Mass/Vol] 111 mg/dL 70-100 [facility] Comment on above: ADA recommended refe rence rangeRandom Glucose Reference Range is dependent on time and content of last meal. Glucose of more than 200 mg/dL in a nonstressed, ambulatory subject supports the diagnosis of Diabetes Mellitus. Hematocrit Auto (Bld) [Volum e fraction]Ordered By: Williams Shepherd on 03-26-2023 Hematocrit (Bld) [Volume fraction] 40.3 % 34.0-46.4 [facility] Hemoglobin [Mass/volume] in BloodOrdered By: Williams Shepherd on 03-26-2023 Hemoglobin (Bld) [Mass/Vol] 13.3 g/dL 11.8-15.4 [facility] INR in Platelet poor plasma by Coagulation assayOrdered By: Williams Shepherd on 03-26-2023 INR Coag (PPP) [Relative time] 2.3 {INR} [facility] Comment on above: INR Therapeutic Rang [...] RBC Auto (Bld) [#/Vol] 5.9 10*3/uL 3.8-11.6 [facility] Lymphocytes Auto (Bld) [#/Vo l]Ordered By: Williams Shepherd on 03-26-2023 Lymphocytes (Bld) [#/Vol] 2.2 10*3/uL 1.00-4.8 [facility] Lymphocytes/100 WBC Auto (Bl d)Ordered By: Williams Shepherd on 03-26-2023 Lymphocytes/100 WBC (Bld) 36.9 % . [facility] MCH Auto (RBC) [Entitic mass ]Ordered By: Williams Shepherd on 03-26-2023 MCH (RBC) [Entitic mass] 31.1 pg 24.7-34.3 [facility] MCHC Auto (RBC) [Mass/Vol]Or dered By: Williams Shepherd on 03-26-2023 MCHC (RBC) [Mass/Vol] 32.9 g/dL 32.0-35.0 [facility] MCV Auto (RBC) [Entitic vol] Ordered By: Williams Shepherd on 03-26-2023 MCV (RBC) [Entitic vol] 94.4 fL 80-100 [facility] Monocytes Auto (Bld) [#/Vol] Ordered By: Williams Shepherd on 03-26-2023 Monocytes (Bld) [#/Vol] 0.5 10*3/uL 0.0-0.8 [facility] Monocytes/100 WBC Auto (Bld) Ordered By: Williams Shepherd on 03-26-2023 Monocytes/100 WBC (Bld) 7.8 % . [facility] Neutrophils Auto (Bld) [#/Vo l]Ordered By: Williams Shepherd on 03-26-2023 Neutrophils (Bld) [#/Vol] 3.0 10*3/uL 1.8-7.7 [facility] Neutrophils/100 WBC Auto (Bl d)Ordered By: Williams Shepherd on 03-26-2023 Neutrophils/100 WBC (Bld) 50.2 % . [facility] No Panel InformationOrdered By: Williams Shepherd on 03-26-2023 Estimated GFR (CKD-EPI) > 60.0 mL/Min [facility] Creatinine Clearance (Chem N/A [facility] Nucleated erythrocytes [Pres ence] in Blood by Automated countOrdered By: Williams Shepherd on 03-26-2023 Nucleated RBC Auto Ql (Bld) 0.3 /100{WBC} 0-0.5 [facility] Partial Thromboplastin Timeo n 03-26-2023 aPTT Coag (Bld) [Time] 35.9 s Normal 25.1-36.5 [facility] Comment on above: Result Comment: A he matocrit value greater than 55% may lead to inaccurate results in coagulation testing. Patients having hematocrit values >55% require a special collection tube for coagulation studies. Please contact the laboratory at [phone] for redraw instructions. PERFORMED BY: [place] [id number] PATHOLOGIST LOW RAW SUGAR CUTTER BERNIE GRAYSON M.D. Performed By: #### P T, BMP, CBC, PTT #### [address] Platelet mean volume Auto (B ld) [Entitic vol]Ordered By: Williams Shepherd on 03-26-2023 Platelet mean volume (Bld) [Entitic vol] 7.1 fL 6.3-10.7 [facility] Platelets Auto (Bld) [#/Vol] Ordered By: Williams Shepherd on 03-26-2023 Platelets (Bld) [#/Vol] 363 10*3/uL 150-450 [facility] Potassium [Moles/volume] in Serum or PlasmaOrdered By: Williams Shepherd on 03-26-2023 Potassium [Moles/Vol] 5.0 mmol/L 3.5-5.1 [facility] Prothrombin Time INRon 03-26 INR Coag (PPP) [Relative time] 2.3 {INR} Normal [facility] Comment on above: Result Comment: INR [...] #### P T, BMP, CBC, PTT #### [address] PT Coag (PPP) [Time] 26.6 s High 9.0-12.9 [facility] Comment on above: Result Comment: A he matocrit value greater than 55% may lead to inaccurate results in coagulation testing. Patients having hematocrit values >55% require a special collection tube for coagulation studies. Please contact the laboratory at [phone] for redraw instructions. Performed By: #### P T, BMP, CBC, PTT #### [address] Prothrombin time (PT)Ordered By: Williams Shepherd on 03-26-2023 PT Coag (PPP) [Time] 26.6 s 9.0-12.9 [facility] Comment on above: A hematocrit value g reater than 55% may lead to inaccurate results in coagulation testing. Patients having hematocrit values >55% require a special collection tube for coagulation studies. Please contact the laboratory at [phone] for redraw instructions. RBC Auto (Bld) [#/Vol]Ordere d By: Williams Shepherd on 03-26-2023 RBC (Bld) [#/Vol] 4.27 10*6/uL 3.60-5.00 [facility] Serum or plasma anion gap de terminationOrdered By: Williams Shepherd on 03-26-2023 Anion gap [Moles/Vol] 13.0 mmol/L 6.0-15.0 [facility] Sodium [Moles/volume] in Ser um or PlasmaOrdered By: Williams Shepherd on 03-26-2023 Sodium [Moles/Vol] 142 mmol/L 136-145 [facility] Urea nitrogen [Mass/volume] in Serum or PlasmaOrdered By: Williams Shepherd on 03-26-2023 Urea nitrogen [Mass/Vol] 12 mg/dL 7-25 [facility] WBC Auto (Bld) [#/Vol]Ordere d By: Williams Shepherd on 03-26-2023 WBC (Bld) [#/Vol] 5.9 10*3/uL 3.8-11.6 [facility] Consultation Noteon 03-17-20 Consultation Note [id number]:12 7 [facility] Lab Reportson 02-12-2023 Lab Reports [id number]:12 7 [facility] RAD - MISCon 02-12-2023 RAD - MISC [id number]:12 7 [facility] RAD - CT Reporton 02-05-2023 RAD - CT Report [id number]:12 7 Normal [facility] RAD - MISCon 02-05-2023 RAD - MISC [id number]:12 7 Normal [facility] Ambulatory Visit Summaryon 0 02-03-2023 Ambulatory Visit [...] AGUIAR, Williams Venegas Where: [facility] Patient Educationon 02-04-20 Patient Education Urology Kidney [...] these instructions at home: Medicines ? Take otma-crg-rbttgks and prescription medicines only as told by [...] follow (more content not included)... Normal [facility] Urology Office/Clinic Noteon 02-03-2023 Urology Office/Clinic Note Chief Complaint 16 month follow up w/ CT scan HPI Staff Pt is here today for 16 month follow up w/ CT scan done @[facility] on 01/15/23. CT scan shows partially obstructing [...] MD, URL [address] [place] [id number]- Additional Instructions: Patient Education Kidney Stones I, Fanny Bowen, personally scribed for Dr. Shepherd on 02/03/2023 12:04:03. . Documentation recorded by the scribe, Fanny Bowen, accurately reflects the services(s) I performed and decisions made by me. Authenticated by Dr. Shepherd on 02/03/2023 12:37:35. Portions of this record may have been created with voice recognition artificial intelligence software, specifically [employer], [employer] and or [employer]. Substitutions may have occurred due to the inherent limitations of voice recognition and artificial intelligence software. 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 Normal [facility] Comment on above: Result Comment: Elec tronically Signed By: Williams SHEPHERD MD\.br\Date and Time Signed: 02/03/23 12:39 EDT\.br\Electronically Co-Signed By: Fanny Bowen\.br\Date and Time Co-Signed: 02/03/23 12:04 EDT PROTIMEon 12-02-2022 INR Coag (PPP) [Relative time] 3.62 {INR} Normal [facility] Comment on above: Performed By: #### P T #### [facility] [address] [address] [address] Tg Fierro INR GUIDELINES SEE BELOW Normal [facility] Comment on above: Result Comment: LAURENCE RED INR: 2.0 - 3.0 CONDITIONS NOT LISTED BELOW 2.5 - 3.5 FOR PROSTHETIC HEART VALVE REPLACEMENT 2.5 - 3.5 RECURRENT THROMBOSIS Performed By: #### P T #### [facility] [address] [address] [address] Tg Fierro PT Coag (PPP) [Time] 35.7 s Critically high 9.0-11.[address] [facility] Comment on above: Performed By: #### P T #### [facility] [address] [place] [address] Dr. Tg Fierro PROTIMEon 11-11-2022 INR Coag (PPP) [Relative time] 1.90 {INR} Normal [facility] Comment on above: Performed By: #### P T #### [facility] [address] [place] [address] Dr. Tg Fierro INR GUIDELINES SEE BELOW Normal [facility] Comment on above: Result Comment: LAURENCE RED INR: 2.0 - 3.0 CONDITIONS NOT LISTED BELOW 2.5 - 3.5 FOR PROSTHETIC HEART VALVE REPLACEMENT 2.5 - 3.5 RECURRENT THROMBOSIS Performed By: #### P T #### [facility] [address] [place] [address] Dr. Tg Fierro PT Coag (PPP) [Time] 19.4 s Critically high 9.0-11.[address] [facility] Comment on above: Performed By: #### P T #### [facility] [address] [place] [address] Dr. Tg Fierro CBC AUTO DIFFon 10-25-2022 BASO # 0.0 103/ul Normal 0.0-0.[address] [facility] Comment on above: Performed By: #### P T #### [facility] [address] [place] [address] Dr. Tg Fierro Basophils/100 WBC (Bld) 0.5 % Normal 0.2-2.[address] [facility] Comment on above: Performed By: #### P T #### [facility] [address] [place] [address] Dr. Tg Fierro EO # 0.2 103/ul Normal 0.0-0.7 [facility] Comment on above: Performed By: #### P T #### [facility] [address] [place] [address] Dr. Tg Fierro Eosinophils/100 WBC (Bld) 2.7 % Normal 0.9-7.[address] [facility] Comment on above: Performed By: #### P T #### [facility] [address] [address] [address] Tg Fierro Erythrocyte distribution width (RBC) [Ratio] 13.4 % Normal 11.0-15.[address] [facility] Comment on above: Performed By: #### P T #### [facility] [address] [place] [address] Dr. Tg Fierro Hematocrit (Bld) [Volume fraction] 40.7 % Normal 36.0-48.[address] [facility] Comment on above: Performed By: #### P T #### [facility] [address] [place] [address] Dr. Tg Fierro Hemoglobin (Bld) [Mass/Vol] 13.2 g/dL Normal 12.0-16.[address] [facility] Comment on above: Performed By: #### P T #### [facility] [address] [place] [address] Dr. Tg Fierro IG # 0.03 10e3/ul Normal 0.00-0.[address] [facility] Comment on above: Performed By: #### P T #### [facility] [address] [place] [address] Dr. Tg Fierro IG % 0.5 % Normal 0.0-0.[address] [facility] Comment on above: Performed By: #### P T #### [facility] [address] [place] [address] Dr. Tg Fierro LYMPH # 2.1 103/ul Normal 1.2-3.[address] [facility] Comment on above: Performed By: #### P T #### [facility] [address] [place] [address] Dr. Tg Fierro Lymphocytes/100 WBC (Bld) 34.9 % Normal 20.5-60.[address] [facility] Comment on above: Performed By: #### P T #### [facility] [address] [place] [address] Dr. Tg Fierro MANUAL DIFF REQ NO Normal [facility] Comment on above: Performed By: #### P T #### [facility] [address] [place] [address] Dr. Tg Fierro MCH (RBC) [Entitic mass] 30.5 pg Normal 26.7-34.0 [facility] Comment on above: Performed By: #### P T #### [facility] [address] [place] [address] Dr. Tg Fierro MCHC (RBC) [Mass/Vol] 32.4 g/dL Normal 29.9-35.2 [facility] Comment on above: Performed By: #### P T #### [facility] [address] [place] [address] Dr. Tg Fierro MCV (RBC) [Entitic vol] 94.0 fL Normal 81.0-99.[address] [facility] Comment on above: Performed By: #### P T #### [facility] [address] [place] [address] Dr. Tg Fierro MONO # 0.4 103/ul Normal 0.3-0.8 [facility] Comment on above: Performed By: #### P T #### [facility] [address] [place] [address] Dr. Tg Fierro Monocytes/100 WBC (Bld) 7.1 % Normal 1.7-12.[address] [facility] Comment on above: Performed By: #### P T #### [facility] [address] [place] [address] Dr. Tg Fierro NEUT # 3.2 103/ul Normal 1.4-6.5 [facility] Comment on above: Performed By: #### P T #### [facility] [address] [place] [address] Dr. Tg Fierro Neutrophils/100 WBC (Bld) 54.3 % Normal 43.0-75.0 [facility] Comment on above: Performed By: #### P T #### [facility] [address] [place] [address] Dr. Tg Fierro Platelet mean volume (Bld) [Entitic vol] 8.7 fL Critically low 9.5-13.5 [facility] Comment on above: Performed By: #### P T #### [facility] [address] [place] [address] Dr. Tg Fierro PLT 295 103/ul Normal 150-[address] [facility] Comment on above: Performed By: #### P T #### [facility] [address] [place] [address] Dr. Tg Fierro RBC 4.33 106/ul Normal 4.20-5.[address] [facility] Comment on above: Performed By: #### P T #### [facility] [address] [place] [address] Dr. Tg Fierro WBC 5.9 103/ul Normal 4.0-11.[address] [facility] Comment on above: Performed By: #### P T #### [facility] [address] [place] [address] Dr. Tg Fierro PROF 14(COMP METB)on 023 Albumin [Mass/Vol] 3.8 g/dL Normal 3.4-5.0 [facility] Comment on above: Performed By: #### C MP #### [facility] [address] [place] [address] Dr. Tg Fierro Albumin/Globulin [Mass ratio] 1.2 {ratio} Normal [facility] Comment on above: Performed By: #### C MP #### [facility] [address] [place] [address] Dr. Tg Fierro ALP [Catalytic activity/Vol] 49 U/L Normal 46-[address] [facility] Comment on above: Performed By: #### C MP #### [facility] [address] [place] [address] Dr. Tg Fierro ALT [Catalytic activity/Vol] 21 U/L Normal 14-[address] [facility] Comment on above: Performed By: #### C MP #### [facility] [address] [place] [address] Dr. Tg Fierro Anion gap [Moles/Vol] 13.3 mmol/L Normal [facility] Comment on above: Performed By: #### C MP #### [facility] [address] [place] [address] Dr. Tg Fierro AST [Catalytic activity/Vol] 14 U/L Critically low 15-[address] [facility] Comment on above: Performed By: #### C MP #### [facility] [address] [address] [address] Tg Fierro Bilirubin [Mass/Vol] 0.5 mg/dL Normal 0.2-1.[address] [facility] Comment on above: Performed By: #### C MP #### [facility] [address] [address] [address] Tg Fierro Calcium [Mass/Vol] 9.5 mg/dL Normal 8.5-10.1 [facility] Comment on above: Performed By: #### C MP #### [facility] [address] [address] [address] Tg Fierro Chloride [Moles/Vol] 104 mmol/L Normal 98-[address] [facility] Comment on above: Performed By: #### C MP #### [facility] [address] [address] [address] Tg Fierro CO2 [Moles/Vol] 29.3 mmol/L Normal 21.0-32.0 [facility] Comment on above: Performed By: #### C MP #### [facility] [address] [place] [address] Dr. Tg Fierro Creatinine [Mass/Vol] 0.93 mg/dL Normal 0.55-1.[address] [facility] Comment on above: Performed By: #### C MP #### [facility] [address] [address] [address] Tg Fierro EGFR-AF PORTUGUESE >60 Normal >=60 [facility] Comment on above: Performed By: #### C MP #### [facility] [address] [address] [address] Tg Fierro EGFR-NON AF [place]UESE 59 mL/min/1.73m2 Critically low >=[address] [facility] Comment on above: Performed By: #### C MP #### [facility] [address] [place] [address] Dr. Tg Fierro Globulin (S) [Mass/Vol] 3.2 g/dL Normal [facility] Comment on above: Performed By: #### C MP #### [facility] [address] [place] [address] Dr. Tg Fierro Glucose [Mass/Vol] 186 mg/dL Critically high 74-106 [facility] Comment on above: Performed By: #### C MP #### [facility] [address] [address] [address] Tg Fierro Potassium [Moles/Vol] 4.6 mmol/L Normal 3.5-5.[address] [facility] Comment on above: Performed By: #### C MP #### [facility] [address] [place] [address] Dr. Tg Fierro Protein [Mass/Vol] 7.0 g/dL Normal 6.4-8.2 [facility] Comment on above: Performed By: #### C MP #### [facility] [address] [place] [address] Dr. Tg Fierro Sodium [Moles/Vol] 142 mmol/L Normal 136-145 [facility] Comment on above: Performed By: #### C MP #### [facility] [address] [place] [address] Dr. Tg Fierro Urea nitrogen [Mass/Vol] 15.0 mg/dL Normal 7.0-18.[address] [facility] Comment on above: Performed By: #### C MP #### [facility] [address] [place] [address] Dr. Tg Fierro Urea nitrogen/Creatinine [Mass ratio] 16.1 mg/mg Normal [facility] Comment on above: Performed By: #### C MP #### [facility] [address] [place] [address] Dr. Tg Fierro SED RATE SOCIAL CIRCLEERGRENon 2022 SED RATE 9 mm/hr Normal <=[address] [facility] Comment on above: Performed By: #### C MP #### [facility] [address] [place] [address] Dr. Tg Fierro PROTIMEon 10-14-2022 INR Coag (PPP) [Relative time] 1.94 {INR} Normal [facility] Comment on above: Performed By: #### P T #### [facility] [address] [place] [address] Dr. Tg Fierro INR GUIDELINES SEE BELOW Normal [facility] Comment on above: Result Comment: LAURENCE RED INR: 2.0 - 3.0 CONDITIONS NOT LISTED BELOW 2.5 - 3.5 FOR PROSTHETIC HEART VALVE REPLACEMENT 2.5 - 3.5 RECURRENT THROMBOSIS Performed By: #### P T #### [facility] [address] [place] [address] Dr. Tg Fierro PT Coag (PPP) [Time] 19.8 s Critically high 9.0-11.[address] [facility] Comment on above: Performed By: #### P T #### [facility] [address] [place] [address] Dr. Tg Fierro CBC AUTO DIFFon 09-24-2022 BASO # 0.1 103/ul Normal 0.0-0.[address] [facility] Comment on above: Performed By: #### P T #### [facility] [address] [place] [address] Dr. Tg Fierro Basophils/100 WBC (Bld) 0.7 % Normal 0.2-2.[address] [facility] Comment on above: Performed By: #### P T #### [facility] [address] [place] [address] Dr. Tg Fierro EO # 0.3 103/ul Normal 0.0-0.[address] [facility] Comment on above: Performed By: #### P T #### [facility] [address] [place] [address] Dr. Tg Fierro Eosinophils/100 WBC (Bld) 3.6 % Normal 0.9-7.0 [facility] Comment on above: Performed By: #### P T #### [facility] [address] [place] [address] Dr. Tg Fierro Erythrocyte distribution width (RBC) [Ratio] 13.4 % Normal 11.0-15.[address] [facility] Comment on above: Performed By: #### P T #### [facility] [address] [address] [address] Tg Fierro Hematocrit (Bld) [Volume fraction] 38.4 % Normal 36.0-48.[address] [facility] Comment on above: Performed By: #### P T #### [facility] [address] [address] [address] Tg Fierro Hemoglobin (Bld) [Mass/Vol] 12.7 g/dL Normal 12.0-16.[address] [facility] Comment on above: Performed By: #### P T #### [facility] [address] [place] [address] Dr. Tg Fierro IG # 0.05 10e3/ul Critically high 0.00-0.03 [facility] Comment on above: Performed By: #### P T #### [facility] [address] [place] [address] Dr. Tg Fierro IG % 0.7 % Critically high 0.0-0.5 [facility] Comment on above: Performed By: #### P T #### [facility] [address] [place] [address] Dr. Tg Fierro LYMPH # 2.6 103/ul Normal 1.2-3.[address] [facility] Comment on above: Performed By: #### P T #### [facility] [address] [place] [address] Dr. Tg Fierro Lymphocytes/100 WBC (Bld) 34.2 % Normal 20.5-60.[address] [facility] Comment on above: Performed By: #### P T #### [facility] [address] [place] [address] Dr. Tg Fierro MANUAL DIFF REQ NO Normal [facility] Comment on above: Performed By: #### P T #### [facility] [address] [place] [address] Dr. Tg Fierro MCH (RBC) [Entitic mass] 31.2 pg Normal 26.7-34.[address] [facility] Comment on above: Performed By: #### P T #### [facility] [address] [place] [address] Dr. Tg Fierro MCHC (RBC) [Mass/Vol] 33.1 g/dL Normal 29.9-35.2 [facility] Comment on above: Performed By: #### P T #### [facility] [address] [place] [address] Dr. Tg Fierro MCV (RBC) [Entitic vol] 94.3 fL Normal 81.0-99.0 [facility] Comment on above: Performed By: #### P T #### [facility] [address] [place] [address] Dr. Tg Fierro MONO # 0.6 103/ul Normal 0.3-0.8 [facility] Comment on above: Performed By: #### P T #### [facility] [address] [place] [address] Dr. Tg Fierro Monocytes/100 WBC (Bld) 8.1 % Normal 1.7-12.0 [facility] Comment on above: Performed By: #### P T #### [facility] [address] [place] [address] Dr. Tg Fierro NEUT # 4.1 103/ul Normal 1.4-6.[address] [facility] Comment on above: Performed By: #### P T #### [facility] [address] [place] [address] Dr. Tg Fierro Neutrophils/100 WBC (Bld) 52.7 % Normal 43.0-75.0 [facility] Comment on above: Performed By: #### P T #### [facility] [address] [place] [address] Dr. Tg Fierro Platelet mean volume (Bld) [Entitic vol] 8.7 fL Critically low 9.5-13.5 [facility] Comment on above: Performed By: #### P T #### [facility] [address] [place] [address] Dr. Tg Fierro PLT 278 103/ul Normal 150-450 [facility] Comment on above: Performed By: #### P T #### [facility] [address] [place] [address] Dr. Tg Fierro RBC 4.07 106/ul Critically low 4.20-5.40 [facility] Comment on above: Performed By: #### P T #### [facility] [address] [place] [address] Dr. Tg Fierro WBC 7.7 103/ul Normal 4.0-11.[address] [facility] Comment on above: Performed By: #### P T #### [facility] [address] [address] [address] Tg Fierro PROF 14(COMP METB)on 023 Albumin [Mass/Vol] 3.9 g/dL Normal 3.4-5.0 [facility] Comment on above: Performed By: #### C MP #### [facility] [address] [place] [address] Dr. Tg Fierro Albumin/Globulin [Mass ratio] 1.4 {ratio} Normal [facility] Comment on above: Performed By: #### C MP #### [facility] [address] [place] [address] Dr. Tg Fierro ALP [Catalytic activity/Vol] 59 U/L Normal 46-[address] [facility] Comment on above: Performed By: #### C MP #### [facility] [address] [place] [address] Dr. Tg Fierro ALT [Catalytic activity/Vol] 21 U/L Normal 14-[address] [facility] Comment on above: Performed By: #### C MP #### [facility] [address] [place] [address] Dr. Tg Fierro Anion gap [Moles/Vol] 10.8 mmol/L Normal [facility] Comment on above: Performed By: #### C MP #### [facility] [address] [place] [address] Dr. Tg Fierro AST [Catalytic activity/Vol] 9 U/L Critically low 15-[address] [facility] Comment on above: Performed By: #### C MP #### [facility] [address] [place] [address] Dr. Tg Fierro Bilirubin [Mass/Vol] 0.3 mg/dL Normal 0.2-1.[address] [facility] Comment on above: Performed By: #### C MP #### [facility] [address] [address] [address] Tg Fierro Calcium [Mass/Vol] 9.1 mg/dL Normal 8.5-10.1 [facility] Comment on above: Performed By: #### C MP #### [facility] [address] [address] [address] Tg Fierro Chloride [Moles/Vol] 104 mmol/L Normal 98-[address] [facility] Comment on above: Performed By: #### C MP #### [facility] [address] [place] [address] Dr. Tg Fierro CO2 [Moles/Vol] 28.3 mmol/L Normal 21.0-32.0 [facility] Comment on above: Performed By: #### C MP #### [facility] [address] [place] [address] Dr. Tg Fierro Creatinine [Mass/Vol] 0.86 mg/dL Normal 0.55-1.[address] [facility] Comment on above: Performed By: #### C MP #### [facility] [address] [place] [address] Dr. Tg Fierro EGFR-AF PORTUGUESE >60 Normal >=60 [facility] Comment on above: Performed By: #### C MP #### [facility] [address] [address] [address] Tg Fierro EGFR-NON AF PORTUGUESE >60 Normal >=[address] [facility] Comment on above: Performed By: #### C MP #### [facility] [address] [address] [address] Tg Fierro Globulin (S) [Mass/Vol] 2.7 g/dL Normal [facility] Comment on above: Performed By: #### C MP #### [facility] [address] [place] [address] Dr. Tg Fierro Glucose [Mass/Vol] 120 mg/dL Critically high 74-106 [facility] Comment on above: Performed By: #### C MP #### [facility] [address] [address] [address] Tg Fierro Potassium [Moles/Vol] 4.1 mmol/L Normal 3.5-5.[address] [facility] Comment on above: Performed By: #### C MP #### [facility] [address] [address] [address] Tg Fierro Protein [Mass/Vol] 6.6 g/dL Normal 6.4-8.2 [facility] Comment on above: Performed By: #### C MP #### [facility] [address] [address] [address] Tg Fierro Sodium [Moles/Vol] 139 mmol/L Normal 136-145 [facility] Comment on above: Performed By: #### C MP #### [facility] [address] [address] [address] Tg Fierro Urea nitrogen [Mass/Vol] 13.0 mg/dL Normal 7.0-18.[address] [facility] Comment on above: Performed By: #### C MP #### [facility] [address] [address] [address] Tg Fierro Urea nitrogen/Creatinine [Mass ratio] 15.1 mg/mg Normal [facility] Comment on above: Performed By: #### C MP #### [facility] [address] [address] [address] Tg Fierro PROTIMEon 09-24-2022 INR Coag (PPP) [Relative time] 1.35 {INR} Normal [facility] Comment on above: Performed By: #### P T #### [facility] [address] [address] [address] gT Fierro INR GUIDELINES SEE BELOW Normal [facility] Comment on above: Result Comment: LAURENCE RED INR: 2.0 - 3.0 CONDITIONS NOT LISTED BELOW 2.5 - 3.5 FOR PROSTHETIC HEART VALVE REPLACEMENT 2.5 - 3.5 RECURRENT THROMBOSIS Performed By: #### P T #### [facility] [address] [place] [address] Dr. Tg Fierro PT Coag (PPP) [Time] 14.1 s Critically high 9.0-11.[address] [facility] Comment on above: Performed By: #### P T #### [facility] [address] [address] [address] [facility] mm/hr Normal <=30 [facility] Comment on above: Performed By: #### C MP #### [facility] [address] [address] [address] Tg Fierro PROTIMEon 09-09-2022 INR Coag (PPP) [Relative time] 1.23 {INR} Normal [facility] Comment on above: Performed By: #### P T #### [facility] [address] [place] [address] Dr. Tg Fierro INR GUIDELINES SEE BELOW Normal [facility] Comment on above: Result Comment: LAURENCE RED INR: 2.0 - 3.0 CONDITIONS NOT LISTED BELOW 2.5 - 3.5 FOR PROSTHETIC HEART VALVE REPLACEMENT 2.5 - 3.5 RECURRENT THROMBOSIS Performed By: #### P T #### [facility] [address] [address] [address] Tg Fierro PT Coag (PPP) [Time] 12.9 s Critically high 9.0-11.[address] [facility] Comment on above: Performed By: #### P T #### [facility] [address] [place] [address] Dr. Tg Fierro ECHOCARDIO M/2D COMPLETEon 0 09-02-2022 ECHOCARDIO M/2D COMPLETE Patient: WILDA SEN Exam Date: 09/02/2022 : 1945 Gender:F Ordering : DR JAYME PEREZ . Admission #: [id number] Family : Order #: [id number] CLICK HERE TO VIEW EXAM ECHOCARDIOGRAM REPORT [...] on 09/03/2022 at 17:[address] [facility] GLYCOHEMOGLOBIN A1Con 2022 ADA RECOMMENDATION SEE BELOW [facility] Comment on above: Result Comment: ADA RECOMMENDED LIMIT 4.0 - 6.0 ADA THERAPEUTIC TARGET < 7.0 ACTION SUGGESTED > 7.0 Performed By: #### A 1C #### [facility] [address] [place] [address] Dr. Tg Fierro Glucose [Mass/Vol] 148 mg/dL Normal [facility] Comment on above: Performed By: #### A 1C #### [facility] [address] [place] [id number] Tg Fierro HbA1c (Bld) [Mass fraction] 6.8 % Critically high 4.5-6.2 [facility] Comment on above: Performed By: #### A 1C #### [facility] [address] [place] [address] Dr. Tg Fierro CBC AUTO DIFFon 08-05-2022 BASO # 0.1 103/ul Normal 0.0-0.[address] [facility] Comment on above: Performed By: #### C BC #### [facility] [address] [place] [address] Dr. Tg Fierro Basophils/100 WBC (Bld) 0.8 % Normal 0.2-2.[address] [facility] Comment on above: Performed By: #### C BC #### [facility] [address] [place] [address] Dr. Tg Fierro EO # 0.5 103/ul Normal 0.0-0.[address] [facility] Comment on above: Performed By: #### C BC #### [facility] [address] [place] [address] Dr. Tg Fierro Eosinophils/100 WBC (Bld) 7.3 % Critically high 0.9-7.[address] [facility] Comment on above: Performed By: #### C BC #### [facility] [address] [place] [address] Dr. Tg Fierro Erythrocyte distribution width (RBC) [Ratio] 13.4 % Normal 11.0-15.[address] [facility] Comment on above: Performed By: #### C BC #### [facility] [address] [place] [address] Dr. Tg Fierro Hematocrit (Bld) [Volume fraction] 37.1 % Normal 36.0-48.[address] [facility] Comment on above: Performed By: #### C BC #### [facility] [address] [place] [address] Dr. Tg Fierro Hemoglobin (Bld) [Mass/Vol] 12.9 g/dL Normal 12.0-16.[address] [facility] Comment on above: Performed By: #### C BC #### [facility] [address] [place] [address] Dr. Tg Fierro IG # 0.03 10e3/ul Normal 0.00-0.[address] [facility] Comment on above: Performed By: #### C BC #### [facility] [address] [place] [address] Dr. Tg Fierro IG % 0.5 % Normal 0.0-0.[address] [facility] Comment on above: Performed By: #### C BC #### [facility] [address] [place] [address] Dr. Tg Fierro LYMPH # 2.3 103/ul Normal 1.2-3.[address] [facility] Comment on above: Performed By: #### C BC #### [facility] [address] [place] [address] Dr. Tg Fierro Lymphocytes/100 WBC (Bld) 34.9 % Normal 20.5-60.[address] [facility] Comment on above: Performed By: #### C BC #### [facility] [address] [place] [address] Dr. Tg Fierro MANUAL DIFF REQ NO Normal [facility] Comment on above: Performed By: #### C BC #### [facility] [address] [place] [address] Dr. Tg Fierro MCH (RBC) [Entitic mass] 31.0 pg Normal 26.7-34.[address] [facility] Comment on above: Performed By: #### C BC #### [facility] [address] [place] [address] Dr. Tg Fierro MCHC (RBC) [Mass/Vol] 34.8 g/dL Normal 29.9-35.[address] [facility] Comment on above: Performed By: #### C BC #### [facility] [address] [place] [address] Dr. Tg Fierro MCV (RBC) [Entitic vol] 89.2 fL Normal 81.0-99.[address] [facility] Comment on above: Performed By: #### C BC #### [facility] [address] [place] [address] Dr. Tg Fierro MONO # 0.4 103/ul Normal 0.3-0.[address] [facility] Comment on above: Performed By: #### C BC #### [facility] [address] [place] [address] Dr. Tg Fierro Monocytes/100 WBC (Bld) 6.1 % Normal 1.7-12.[address] [facility] Comment on above: Performed By: #### C BC #### [facility] [address] [place] [address] Dr. Tg Fierro NEUT # 3.3 103/ul Normal 1.4-6.[address] [facility] Comment on above: Performed By: #### C BC #### [facility] [address] [place] [address] Dr. Tg Fierro Neutrophils/100 WBC (Bld) 50.4 % Normal 43.0-75.[address] [facility] Comment on above: Performed By: #### C BC #### [facility] [address] [place] [address] Dr. Tg Fierro Platelet mean volume (Bld) [Entitic vol] 8.6 fL Critically low 9.5-13.[address] [facility] Comment on above: Performed By: #### C BC #### [facility] [address] [place] [address] Dr. Tg Fierro PLT 336 103/ul Normal 150-450 [facility] Comment on above: Performed By: #### C BC #### [facility] [address] [place] [address] Dr. Tg Fierro RBC 4.16 106/ul Critically low 4.20-5.40 [facility] Comment on above: Performed By: #### C BC #### [facility] [address] [place] [address] Dr. Tg Fierro WBC 6.4 103/ul Normal 4.0-11.0 [facility] Comment on above: Performed By: #### C BC #### [facility] [address] [place] [address] Dr. Tg Fierro PROF 14(COMP METB)on 023 Albumin [Mass/Vol] 3.9 g/dL Normal 3.4-5.0 [facility] Comment on above: Performed By: #### P T #### [facility] [address] [place] [address] Dr. Tg Fierro Albumin/Globulin [Mass ratio] 1.3 {ratio} Normal [facility] Comment on above: Performed By: #### P T #### [facility] [address] [address] [address] Tg Fierro ALP [Catalytic activity/Vol] 60 U/L Normal 46-[address] [facility] Comment on above: Performed By: #### P T #### [facility] [address] [place] [address] Dr. Tg Fierro ALT [Catalytic activity/Vol] 21 U/L Normal 14-[address] [facility] Comment on above: Performed By: #### P T #### [facility] [address] [place] [address] Dr. Tg Fierro Anion gap [Moles/Vol] 15.2 mmol/L Normal [facility] Comment on above: Performed By: #### P T #### [facility] [address] [place] [address] Dr. Tg Fierro AST [Catalytic activity/Vol] 14 U/L Critically low 15-[address] [facility] Comment on above: Performed By: #### P T #### [facility] [address] [place] [address] Dr. Tg Fierro Bilirubin [Mass/Vol] 0.4 mg/dL Normal 0.2-1.[address] [facility] Comment on above: Performed By: #### P T #### [facility] [address] [place] [address] Dr. Tg Fierro Calcium [Mass/Vol] 9.3 mg/dL Normal 8.5-10.1 [facility] Comment on above: Performed By: #### P T #### [facility] [address] [place] [address] Dr. Tg Fierro Chloride [Moles/Vol] 102 mmol/L Normal 98-[address] [facility] Comment on above: Performed By: #### P T #### [facility] [address] [address] [address] Tg Fierro CO2 [Moles/Vol] 26.8 mmol/L Normal 21.0-32.0 [facility] Comment on above: Performed By: #### P T #### [facility] [address] [address] [address] Tg Fierro Creatinine [Mass/Vol] 0.74 mg/dL Normal 0.55-1.[address] [facility] Comment on above: Performed By: #### P T #### [facility] [address] [address] [address] Tg Fierro EGFR-AF PORTUGUESE >60 Normal >=60 [facility] Comment on above: Performed By: #### P T #### [facility] [address] [place] [address] Dr. Tg Fierro EGFR-NON AF PORTUGUESE >60 Normal >=[address] [facility] Comment on above: Performed By: #### P T #### [facility] [address] [place] [address] Dr. Tg Fierro Globulin (S) [Mass/Vol] 3.1 g/dL Normal [facility] Comment on above: Performed By: #### P T #### [facility] [address] [place] [address] Dr. Tg Fierro Glucose [Mass/Vol] 148 mg/dL Critically high 74-106 [facility] Comment on above: Performed By: #### P T #### [facility] [address] [place] [address] Dr. Tg Fierro Potassium [Moles/Vol] 4.0 mmol/L Normal 3.5-5.[address] [facility] Comment on above: Performed By: #### P T #### [facility] [address] [place] [address] Dr. Tg Fierro Protein [Mass/Vol] 7.0 g/dL Normal 6.4-8.2 [facility] Comment on above: Performed By: #### P T #### [facility] [address] [place] [address] Dr. Tg Fierro Sodium [Moles/Vol] 140 mmol/L Normal 136-145 [facility] Comment on above: Performed By: #### P T #### [facility] [address] [place] [address] Dr. Tg Fierro Urea nitrogen [Mass/Vol] 12.0 mg/dL Normal 7.0-18.[address] [facility] Comment on above: Performed By: #### P T #### [facility] [address] [place] [address] Dr. Tg Fierro Urea nitrogen/Creatinine [Mass ratio] 16.2 mg/mg Normal [facility] Comment on above: Performed By: #### P T #### [facility] [address] [place] [address] Dr. Tg [facility] mm/hr Normal <=[address] [facility] Comment on above: Performed By: #### S EDR #### [facility] [address] [place] [address] Dr. Tg Fierro CBC AUTO DIFFon 04-15-2022 BASO # 0.1 103/ul Normal 0.0-0.[address] [facility] Comment on above: Performed By: #### C BC #### [facility] [address] [place] [address] Dr. Tg Fierro Basophils/100 WBC (Bld) 0.6 % Normal 0.2-2.[address] [facility] Comment on above: Performed By: #### C BC #### [facility] [address] [place] [address] Dr. Tg Fierro EO # 0.2 103/ul Normal 0.0-0.[address] [facility] Comment on above: Performed By: #### C BC #### [facility] [address] [place] [address] Dr. Tg Fierro Eosinophils/100 WBC (Bld) 3.1 % Normal 0.9-7.[address] [facility] Comment on above: Performed By: #### C BC #### [facility] [address] [place] [address] Dr. Tg Fierro Erythrocyte distribution width (RBC) [Ratio] 13.6 % Normal 11.0-15.[address] [facility] Comment on above: Performed By: #### C BC #### [facility] [address] [place] [address] Dr. Tg Fierro Hematocrit (Bld) [Volume fraction] 42.3 % Normal 36.0-48.[address] [facility] Comment on above: Performed By: #### C BC #### [facility] [address] [place] [address] Dr. Tg Fierro Hemoglobin (Bld) [Mass/Vol] 13.2 g/dL Normal 12.0-16.[address] [facility] Comment on above: Performed By: #### C BC #### [facility] [address] [place] [address] Dr. Tg Fierro IG # 0.04 10e3/ul Critically high 0.00-0.03 [facility] Comment on above: Performed By: #### C BC #### [facility] [address] [place] [address] Dr. Tg Fierro IG % 0.5 % Normal 0.0-0.[address] [facility] Comment on above: Performed By: #### C BC #### [facility] [address] [place] [address] Dr. Tg Fierro LYMPH # 2.5 103/ul Normal 1.2-3.8 [facility] Comment on above: Performed By: #### C BC #### [facility] [address] [place] [address] Dr. Tg Fierro Lymphocytes/100 WBC (Bld) 31.6 % Normal 20.5-60.0 [facility] Comment on above: Performed By: #### C BC #### [facility] [address] [place] [address] Dr. Tg Fierro MANUAL DIFF REQ NO Normal [facility] Comment on above: Performed By: #### C BC #### [facility] [address] [place] [address] Dr. Tg Fierro MCH (RBC) [Entitic mass] 30.3 pg Normal 26.7-34.[address] [facility] Comment on above: Performed By: #### C BC #### [facility] [address] [place] [address] Dr. Tg Fierro MCHC (RBC) [Mass/Vol] 31.2 g/dL Normal 29.9-35.[address] [facility] Comment on above: Performed By: #### C BC #### [facility] [address] [place] [address] Dr. Tg Fierro MCV (RBC) [Entitic vol] 97.0 fL Normal 81.0-99.[address] [facility] Comment on above: Performed By: #### C BC #### [facility] [address] [place] [address] Dr. Tg Fierro MONO # 0.5 103/ul Normal 0.3-0.[address] [facility] Comment on above: Performed By: #### C BC #### [facility] [address] [place] [address] Dr. Tg Fierro Monocytes/100 WBC (Bld) 6.3 % Normal 1.7-12.[address] [facility] Comment on above: Performed By: #### C BC #### [facility] [address] [place] [address] Dr. Tg Fierro NEUT # 4.5 103/ul Normal 1.4-6.5 [facility] Comment on above: Performed By: #### C BC #### [facility] [address] [place] [address] Dr. Tg Fierro Neutrophils/100 WBC (Bld) 57.9 % Normal 43.0-75.0 [facility] Comment on above: Performed By: #### C BC #### [facility] [address] [place] [address] Dr. Tg Fierro Platelet mean volume (Bld) [Entitic vol] 8.6 fL Critically low 9.5-13.[address] [facility] Comment on above: Performed By: #### C BC #### [facility] [address] [place] [address] Dr. Tg Fierro PLT 295 103/ul Normal 150-[address] [facility] Comment on above: Performed By: #### C BC #### [facility] [address] [place] [address] Dr. Tg Fierro RBC 4.36 106/ul Normal 4.20-5.[address] [facility] Comment on above: Performed By: #### C BC #### [facility] [address] [address] [address] Tg Fierro WBC 7.8 103/ul Normal 4.0-11.[address] [facility] Comment on above: Performed By: #### C BC #### [facility] [address] [address] [address] Tg Fierro PROF 14(COMP METB)on 022 Albumin [Mass/Vol] 4.5 g/dL Normal 3.4-5.0 [facility] Comment on above: Performed By: #### C MP #### [facility] [address] [place] [address] Dr. Tg Fierro Albumin/Globulin [Mass ratio] 1.5 {ratio} Normal [facility] Comment on above: Performed By: #### C MP #### [facility] [address] [place] [address] Dr. Tg Fierro ALP [Catalytic activity/Vol] 62 U/L Normal 46-[address] [facility] Comment on above: Performed By: #### C MP #### [facility] [address] [place] [address] Dr. Tg Fierro ALT [Catalytic activity/Vol] 25 U/L Normal 14-[address] [facility] Comment on above: Performed By: #### C MP #### [facility] [address] [address] [address] Tg Fierro Anion gap [Moles/Vol] 10.6 mmol/L Normal [facility] Comment on above: Performed By: #### C MP #### [facility] [address] [place] [address] Dr. Tg Fierro AST [Catalytic activity/Vol] 12 U/L Critically low 15-37 [facility] Comment on above: Performed By: #### C MP #### [facility] [address] [address] [address] Tg Fierro Bilirubin [Mass/Vol] 0.5 mg/dL Normal 0.2-1.[address] [facility] Comment on above: Performed By: #### C MP #### [facility] [address] [address] [address] Tg Fierro Calcium [Mass/Vol] 9.8 mg/dL Normal 8.5-10.1 [facility] Comment on above: Performed By: #### C MP #### [facility] [address] [address] [address] Tg Fierro Chloride [Moles/Vol] 102 mmol/L Normal 98-[address] [facility] Comment on above: Performed By: #### C MP #### [facility] [address] [address] [address] Tg Fierro CO2 [Moles/Vol] 31.8 mmol/L Normal 21.0-32.0 [facility] Comment on above: Performed By: #### C MP #### [facility] [address] [address] [address] Tg Fierro Creatinine [Mass/Vol] 0.88 mg/dL Normal 0.55-1.[address] [facility] Comment on above: Performed By: #### C MP #### [facility] [address] [address] [address] Tg Fierro EGFR-AF PORTUGUESE >60 Normal >=60 [facility] Comment on above: Performed By: #### C MP #### [facility] [address] [address] [address] Tg Fierro EGFR-NON AF PORTUGUESE >60 Normal >=[address] [facility] Comment on above: Performed By: #### C MP #### [facility] [address] [address] [address] Tg Fierro Globulin (S) [Mass/Vol] 3.1 g/dL Normal [facility] Comment on above: Performed By: #### C MP #### [facility] [address] [address] [address] Tg Fierro Glucose [Mass/Vol] 187 mg/dL Critically high 74-106 [facility] Comment on above: Performed By: #### C MP #### [facility] [address] [address] [address] Tg Fierro Potassium [Moles/Vol] 4.4 mmol/L Normal 3.5-5.[address] [facility] Comment on above: Performed By: #### C MP #### [facility] [address] [address] [address] Tg Fierro Protein [Mass/Vol] 7.6 g/dL Normal 6.4-8.2 [facility] Comment on above: Performed By: #### C MP #### [facility] [address] [place] [address] Dr. Tg Fierro Sodium [Moles/Vol] 140 mmol/L Normal 136-145 [facility] Comment on above: Performed By: #### C MP #### [facility] [address] [place] [address] Dr. Tg Fierro Urea nitrogen [Mass/Vol] 14.0 mg/dL Normal 7.0-18.[address] [facility] Comment on above: Performed By: #### C MP #### [facility] [address] [place] [address] Dr. Tg Fierro Urea nitrogen/Creatinine [Mass ratio] 15.9 mg/mg Normal [facility] Comment on above: Performed By: #### C MP #### [facility] [address] [place] [address] Dr. Tg Fierro SED RATE [facility] 2021 SED RATE 5 mm/hr Normal <=[address] [facility] Comment on above: Performed By: #### S EDR #### [facility] [address] [place] [address] Dr. Tg Fierro CBC AUTO DIFFon 02-07-2022 BASO # 0.0 103/ul Normal 0.0-0.[address] [facility] Comment on above: Performed By: #### P T #### [facility] [address] [place] [address] Dr. Tg Fierro Basophils/100 WBC (Bld) 0.6 % Normal 0.2-2.[address] [facility] Comment on above: Performed By: #### P T #### [facility] [place] [address] [place] [address] Dr. Tg Fierro EO # 0.4 103/ul Normal 0.0-0.7 [facility] Comment on above: Performed By: #### P T #### [facility] [address] [place] [address] Dr. Tg Fierro Eosinophils/100 WBC (Bld) 5.4 % Normal 0.9-7.[address] [facility] Comment on above: Performed By: #### P T #### [facility] [place] [facility] [address] [place] [address] Dr. Tg Fierro Erythrocyte distribution width (RBC) [Ratio] 13.5 % Normal 11.0-15.[address] [facility] Comment on above: Performed By: #### P T #### [facility] [address] [place] [address] Dr. Tg Fierro Hematocrit (Bld) [Volume fraction] 39.4 % Normal 36.0-48.[address] [facility] Comment on above: Performed By: #### P T #### [facility] [place] [address] [place] [address] Dr. Tg Fierro Hemoglobin (Bld) [Mass/Vol] 12.8 g/dL Normal 12.0-16.[address] [facility] Comment on above: Performed By: #### P T #### [facility] [place] [address] [place] [address] Dr. Tg Fierro IG # 0.02 10e3/ul Normal 0.00-0.03 [facility] [place] Comment on above: Performed By: #### P T #### [facility] [place] [facility] [address] [place] [address] Dr. Tg Fierro IG % 0.3 % Normal 0.0-0.5 [facility] [place] Comment on above: Performed By: #### P T #### [facility] [address] [address] [address] Tg Fierro LYMPH # 2.4 103/ul Normal 1.2-3.8 [facility] [place] Comment on above: Performed By: #### P T #### [facility] [address] [place] [address] Dr. Tg Fierro Lymphocytes/100 WBC (Bld) 36.2 % Normal 20.5-60.[address] [facility] Comment on above: Performed By: #### P T #### [facility] [address] [place] [address] Dr. Tg Fierro MANUAL DIFF REQ NO Normal [facility] Comment on above: Performed By: #### P T #### [facility] [address] [place] [address] Dr. Tg Fierro MCH (RBC) [Entitic mass] 31.0 pg Normal 26.7-34.[address] [facility] Comment on above: Performed By: #### P T #### [facility] [place] [address] [place] [address] Dr. Tg Fierro MCHC (RBC) [Mass/Vol] 32.5 g/dL Normal 29.9-35.2 [facility] Comment on above: Performed By: #### P T #### [facility] [address] [place] [address] Dr. Tg Fierro MCV (RBC) [Entitic vol] 95.4 fL Normal 81.0-99.[address] [facility] Comment on above: Performed By: #### P T #### [facility] [address] [place] [address] Dr. Tg Fierro MONO # 0.5 103/ul Normal 0.3-0.8 [facility] Comment on above: Performed By: #### P T #### [facility] [address] [place] [address] Dr. Tg Fierro Monocytes/100 WBC (Bld) 8.0 % Normal 1.7-12.[address] [facility] Comment on above: Performed By: #### P T #### [facility] [address] [place], [place] [id number] Dr. Tg Fierro NEUT # 3.3 103/ul Normal 1.4-6.[address] [facility] Comment on above: Performed By: #### P T #### [facility] [address] [address] [address] Tg Fierro Neutrophils/100 WBC (Bld) 49.5 % Normal 43.0-75.[address] [facility] Comment on above: Performed By: #### P T #### [facility] [address] [place] [address] Dr. Tg Fierro Platelet mean volume (Bld) [Entitic vol] 8.7 fL Critically low 9.5-13.[address] [facility] Comment on above: Performed By: #### P T #### [facility] [address] [place] [address] Dr. Tg Fierro PLT 276 103/ul Normal 150-450 [facility] Comment on above: Performed By: #### P T #### [facility] [address] [address] [address] Tg Fierro RBC 4.13 106/ul Critically low 4.20-5.40 [facility] Comment on above: Performed By: #### P T #### [facility] [address] [place] [address] Dr. Tg Fierro WBC 6.7 103/ul Normal 4.0-11.[address] [facility] Comment on above: Performed By: #### P T #### [facility] [address] [place] [address] Dr. Tg Fierro GLYCOHEMOGLOBIN A1Con 2021 ADA RECOMMENDATION SEE BELOW Normal [facility] Comment on above: Result Comment: ADA RECOMMENDED LIMIT 4.0 - 6.0 ADA THERAPEUTIC TARGET < 7.0 ACTION SUGGESTED > 7.0 Performed By: #### A 1C #### [facility] [address] [place] [address] Dr. Tg Fierro Glucose [Mass/Vol] 151 mg/dL Normal [facility] Comment on above: Performed By: #### A 1C #### [facility] [address] [place] [address] Dr. Tg Fierro HbA1c (Bld) [Mass fraction] 6.9 % Critically high 4.5-6.[address] [facility] Comment on above: Performed By: #### A 1C #### [facility] [address] [place] [address] Dr. Tg Fierro PROF 14(COMP METB)on 022 Albumin [Mass/Vol] 3.8 g/dL Normal 3.4-5.0 [facility] Comment on above: Performed By: #### P T #### [facility] [address] [place] [address] Dr. Tg Fierro Albumin/Globulin [Mass ratio] 1.3 {ratio} Normal [facility] Comment on above: Performed By: #### P T #### [facility] [address] [place] [address] Dr. Tg Fierro ALP [Catalytic activity/Vol] 43 U/L Critically low 46-[address] [facility] Comment on above: Performed By: #### P T #### [facility] [address] [place] [address] Dr. Tg Fierro ALT [Catalytic activity/Vol] 19 U/L Normal 14-[address] [facility] Comment on above: Performed By: #### P T #### [facility] [address] [place] [address] Dr. Tg Fierro Anion gap [Moles/Vol] 13.7 mmol/L Normal [facility] Comment on above: Performed By: #### P T #### [facility] [address] [place] [address] Dr. Tg Fierro AST [Catalytic activity/Vol] 11 U/L Critically low 15-[address] [facility] Comment on above: Performed By: #### P T #### [facility] [place] [facility] [address] [place] [address] Dr. Tg Fierro Bilirubin [Mass/Vol] 0.4 mg/dL Normal 0.2-1.[address] [facility] Comment on above: Performed By: #### P T #### [facility] [address] [place], [place] [address] Dr. Tg Fierro Calcium [Mass/Vol] 9.1 mg/dL Normal 8.5-10.1 [facility] Comment on above: Performed By: #### P T #### [facility] [address] [place] [address] Dr. Tg Fierro Chloride [Moles/Vol] 104 mmol/L Normal 98-[address] [facility] Comment on above: Performed By: #### P T #### [facility] [address] [place] [address] Dr. Tg Fierro CO2 [Moles/Vol] 28.5 mmol/L Normal 21.0-32.0 [facility] Comment on above: Performed By: #### P T #### [facility] [address] [place] [address] Dr. Tg Fierro Creatinine [Mass/Vol] 0.77 mg/dL Normal 0.55-1.[address] [facility] Comment on above: Performed By: #### P T #### [facility] [address] [place] [address] Dr. Tg Fierro EGFR-AF PORTUGUESE >60 Normal >=60 [facility] Comment on above: Performed By: #### P T #### [facility] [address] [place] [address] Dr. Tg Fierro EGFR-NON AF PORTUGUESE >60 Normal >=[address] [facility] Comment on above: Performed By: #### P T #### [facility] [address] [place] [address] Dr. Tg Fierro Globulin (S) [Mass/Vol] 3.0 g/dL Normal [facility] Comment on above: Performed By: #### P T #### [facility] [address] [place] [address] Dr. Tg Fierro Glucose [Mass/Vol] 124 mg/dL Critically high 74-106 [facility] Comment on above: Performed By: #### P T #### [facility] [place] [address] [place] [address] Dr. Tg Fierro Potassium [Moles/Vol] 4.2 mmol/L Normal 3.5-5.[address] [facility] Comment on above: Performed By: #### P T #### [facility] [address] [address] [address] Tg Fierro Protein [Mass/Vol] 6.8 g/dL Normal 6.4-8.2 [facility] Comment on above: Performed By: #### P T #### [facility] [address] [address] [address] Tg Fierro Sodium [Moles/Vol] 142 mmol/L Normal 136-145 [facility] Comment on above: Performed By: #### P T #### [facility] [address] [address] [address] Tg Fierro Urea nitrogen [Mass/Vol] 12.0 mg/dL Normal 7.0-18.[address] [facility] Comment on above: Performed By: #### P T #### [facility] [address] [address] [address] Tg Fierro Urea nitrogen/Creatinine [Mass ratio] 15.6 mg/mg Normal [facility] Comment on above: Performed By: #### P T #### [facility] [address] [address] [address] Tg Fierro SED RATE [facility] 2021 SED RATE 8 mm/hr Normal <=[address] [facility] Comment on above: Performed By: #### C MP #### [facility] [place] [facility] [address] [place] [address] Dr. Tg Fierro COVID Quick Testingon 2020 Result Positive Hall Other Vital Signs Date Time Vital Sign Value Performing Clinician Facility 07-25-2023 09:20-0500 Body height 160.02 cm Lou Glover Other Hall Other 07-25-2023 09:20-0500 Body mass index (BMI) [Ratio] 23.91 kg/m2 Lou Glover Other Hall Other 07-25-2023 09:20-0500 Body temperature 97.7 [degF] Lou Glover Other Hall Other 07-25-2023 09:20-0500 Body weight 61.24 kg Lou Glover Other Hall Other 07-25-2023 09:20-0500 Diastolic blood pressure 74 mm[Hg] Lou Glover Other Hall Other 07-25-2023 09:20-0500 Respiratory rate 18 /min Lou Glover Other Hall Other 07-25-2023 09:20-0500 SaO2% (BldA) [Mass fraction] 96 % Lou Glover Other Hall Other 07-25-2023 09:20-0500 Systolic blood pressure 120 mm[Hg] Lou Glover Other Hall Other 03-26-2023 13:15-0400 Body height 160.02 cm MD Jayme Perez Work Phone: [facility] 03-26-2023 13:15-0400 Body temperature 98.2 [degF] MD Jayme Perez Work Phone: [facility] 03-26-2023 13:15-0400 Body weight 66 kg MD Jayme Perez Work Phone: [facility] 03-26-2023 13:15-0400 Diastolic blood pressure 71 mm[Hg] MD Jayme Perez Work Phone: [facility] 03-26-2023 13:15-0400 Heart rate 87 /min MD Jayme Perez Work Phone: [facility] 03-26-2023 13:15-0400 Respiratory rate 16 /min MD Jayme Perez Work Phone: [facility] 03-26-2023 13:15-0400 SaO2% (BldA) [Mass fraction] 97 % MD Jayme Perez Work Phone: [facility] 03-26-2023 13:15-0400 Systolic blood pressure 117 mm[Hg] MD Jayme Perez Work Phone: [facility] 05-21-2021 13:15-0500 Body height 160.02 cm Astrid Ryanault Other Hall Other 05-21-2021 13:15-0500 Body mass index (BMI) [Ratio] 23.91 kg/m2 Astrid Olivia Other Hall Other 05-21-2021 13:15-0500 Body temperature 97.3 [degF] Astrid Ryanault Other Hall Other 05-21-2021 13:15-0500 Body weight 61.24 kg Astrid Ryanault Other Hall Other 05-21-2021 13:15-0500 SaO2% (BldA) [Mass fraction] 94 % Astrid Olivia Other Hall Other Encounters Encounter Date Encounter Type Care Provider Facility Start: 07-30-2023 End: 07-30-2023 ambulatory JAYME PEREZ Not Available Start: 07-25-2023 End: 07-25-2023 ambulatory Lou Glover Other Hall Other Start: 07-25-2023 Office outpatient visit 25 minutes Lou Glover [facility] Start: 07-10-2023 End: 07-10-2023 ambulatory FELICIAERIC GILLESPIEER Not Available Start: 07-02-2023 End: 07-02-2023 ambulatory FELICIAZULEIMA HITCHCOCKHLER Not Available Start: 06-25-2023 End: 06-25-2023 ambulatory FELICIA HITCHCOCKHLER Not Available Start: 06-18-2023 End: 06-18-2023 ambulatory FELICIA D CORETTAHLER Not Available Start: 04-07-2023 End: 04-07-2023 Departed Referred MD Jayme Perez Work Phone: [facility] [place] Start: 04-07-2023 End: 04-08-2023 ambulatory Williams SHEPHERD Facility:[facility] Start: 03-26-2023 End: 03-26-2023 ambulatory Wliliams Shepherd Facility:[facility] Start: 03-26-2023 End: 03-26-2023 Patient encounter procedure MD Jayme Perez Work Phone: [facility] Work Phone: Start: 03-20-2023 End: 03-21-2023 ambulatory Williams SHEPHERD [place] Start: 03-20-2023 End: 03-20-2023 Lab Drop off Williams SHEPHERD [facility] Start: 03-20-2023 End: 03-20-2023 Patient encounter procedure Williams SHEPHERD [facility] Start: 02-03-2023 End: 02-04-2023 ambulatory Williams SHEPHERD [...] 05-21-2021 End: 05-21-2021 ambulatory Astrid Baker Other Hall Other Start: 05-21-2021 Office outpatient visit 15 minutes Astrid Baker [facility] Procedures Date Procedure Procedure Detail Performing Clinician Start: 08-26-2019 Extracorporeal shock wave lithotripsy of calculus of kidney Williams [employer] Start: 04-12-2016 Cystoscopic laser lithotripsy of ureteric calculus Williams [employer] Start: 03-28-2016 Cystoscopic removal of ureteric stent Williams [employer] Start: 02-15-2016 Extracorporeal shock wave lithotripsy of calculus of kidney Williasm SHEPHERD Start: 01-16-2016 Endoscopic retrograd e pyelogram Williams [employer] Start: 06-29-2013 Extracorporeal shock wave lithotripsy of calculus of kidney Williams SHEPHERD Start: 09-10-2010 Cystoscopic removal of ureteric stent Williams [employer] Start: 08-29-2010 Extracorporeal shock wave lithotripsy of calculus of kidney [employer] Start: 08-23-2010 Cystoscopic insertio n of ureteric stent [facility] Start: 03-02-2008 Endoscopic retrograd e pyelogram [facility] Start: 10-16-2004 Cystoscopic anastomo sis of ureter to bladder with insertion of stent into ureter [facility] Plan of Treatment Date Care Activity Detail Author Start: 07-12-2024 ambulatory Ambulatory Facility:[facility]essie D[facility] Start: 04-07-2023 Abdomen endoscopy OR Cysto/Retro/Stent/Stone/H olmium Laser (Right) [facility] Immunizations Immunization Date Immunization Notes Care Provider Yaya oswald NEGATED: Highlighted row has not occurred!09-21-2019 influenza virus vaccine, live, attenuated, for intranasal use [employer] [facility] NEGATED: Highlighted row has not occurred!08-20-2019 influenza virus vaccine, live, attenuated, for intranasal use [employer] [facility] Payers Date Payer Category Payer Self-pay [id number] 2022 Medicare [id number] 2.16 .[id number]. 1958 Medicare [id number] 2.1 [id number]. 1959 Unknown [id number] 1945 Unknown [id number] 2.16.84 0.1.230790.3.579.2.593 1946 Unknown [id number] 2.16.84 0.1.928113.3.579.2.593 1946 Unknown [id number] 2.16.84 0.1.432591.3.579.2.593 1946 Unknown [id number] 2.16.84 0.1.283008.3.579.2.593 1946 Unknown [id number] 2.16.84 0.1.148664.3.579.2.593 1946 Unknown [id number] 2.16.84 0.1.224096.3.579.2.593 1946 Unknown [id number] 2.16.84 0.1.354685.3.579.2.593 1946 Unknown [id number] 2.16.84 0.1.934417.3.579.2.593 1946 Unknown [id number] 2.16.84 0.1.177498.3.579.2.593 1946 Unknown [id number] 2.16.84 0.1.775867.3.579.2.593 1946 Unknown [id number] 2.16.84 0.1.665528.3.579.2.593 1946 Unknown [id number] 2.16.84 0.1.820707.3.579.2.593 1946 Unknown [id number] 2.16.84 0.1.939453.3.579.2.593 1946 Unknown [id number] 2.16.8 40.1.118429.3.579.2.727 1946 Unknown [id number] 2.16.8 40.1.633413.3.579.2.727 1946 Unknown [id number] 2.16.8 40.1.371175.3.579.2.727 1946 Unknown [id number] 2.16.8 40.1.558174.3.579.2.727 1946 Unknown [id number] 2.16.84 0.1.080426.3.579.2.1259 1946 Unknown [id number] 2.16.840 .1.300654.3.579.2.1259 1946 Unknown [id number] 2.16.840 .1.676442.3.579.2.1259 1946 Unknown [id number] 2.16.840 .1.506077.3.579.2.1259 1946 Unknown [id number] 2.16.840 .1.289359.3.579.2.1259 Unknown [id number] 2.16.8 40.1.246284.3.579.2.531 Unknown [id number] 2.16.8 40.1.478495.3.579.2.531 Social History Date Type Detail Facility Sex Assigned At Hall Other Start: 02-03-2023 End: 03-26-2023 Tobacco smoking status Ex-smoker (finding) [facility] Tobacco smoking status Never [facility] Sex Assigned At Female [facility] Start: 1945 Sex Assigned At Female [facility] Clinical Notes 02-21-2022 to 07-25-2023 Note Date & Type Note Facility 07-25-2023 Evaluation note Encounter Date Diagnosis Assessment Notes Jul, Contact with and (suspected) exposure to covid-19 (ICD-10 - Z20.822) Jul, RSV infection (ICD-10 - B33.8) Advised patient that RSV PCR test was positive, COVID/Influenza A/B PCR test negative. Discussed diagnosis with patient in detail. Advised that this is a viral illness and antibiotics are not indicated. Discussed importance of adequate hydration and signs of respiratory distress in great detail. Supportive care as directed rx of steroid and [place], cool mist humidification. May use Tylenol as directed. Immediate eval for signs of respiratory distress, difficulty breathing poor PO intake, signs of dehydration, fever, or other concerning symptoms. Otherwise, follow up with PCP in 2-3 days. Patient verbalizes understanding and is agreeable to treatment plan. Patient sent home in stable condition. Hall Other 08-11-2022 NotePROCEDURE: XR FOOT LT MIN 3 VIEWS COMPARISON: None. HISTORY: Pain in left foot FINDINGS: BONES:No acute fracture or dislocation. Mild enthesopathic spurring of the calcaneus. SOFT TISSUES:Negative. No visible soft tissue swelling. EFFUSION:None visible. OTHER: Negative. IMPRESSION: Mild enthesopathic spurring of the calcaneus Electronically authenticated by: BLANCA ZAVALA Date: 2022-02-21 07[facility] Future App[facility]ments Appointment Date:07/12/2024 10:45:00 AM Scheduled Provider:Williams SHEPHERD MD Location:[facility] Appointment Type:URO Office Visit [facility] Evaluation + Plan note Future Appointments Appointment Date:07/12/2024 10:45:00 AM Scheduled Provider:Williams SHEPHERD MD Location:[facility] Appointment Type:URO Office Visit Diagnostic Tests Pending * Calculi Analysis [facility] Other Evaluation noteNo assessment information available [facility] Work Phone: History [facility] - [facility] Other History general Narrative - Reported* Type Description Date Medical History Arthritis Medical History diabetes mallitus Surgical History cataract surgery [facility] Other Hospital course Narrative No data available for this section [facility] Hospital Discharge instructions No data available for this section [facility] Progress note No data available for this section [facility] Summary Purpose Family History No Family History [...] section and content) DATE CREATED AUTHOR 12/20/2022 [facility] DATE CREATED AUTHOR AUTHOR'S ORGANIZ ATION 04/15/2023 [facility] DATE CREATED AUTHOR AUTHOR'S ORGANIZ ATION 06/09/2023 [facility] DATE CREATED AUTHOR AUTHOR'S ORGANIZ ATION 07/31/2023 [facility] EPIC Patient Care team informatio n (unrecognized section and content) Team Status: Active Member Role Status Dates Jayme Perez MD Primary Care Provider Active Team Status: Inactive Member Role Status Dates Jayme Perez MD Primary Care Provider Active Williams Shepherd MD Attending Provider Active Goals (unrecognized section and content) Goals may be documented in a n alternate section REASON FOR VISIT (unrecogniz ed section and content) COUGH, CONGESTION FOR RECORDS PERTAINING TO PATIENTS WHO ARE [...] BE BASED ON THE PRIMARY CLINICAL RECORDS. [employer] [facility] provides no warranty or guarantee of the accuracy or completeness of information in this document.
[2023-08-05 12:24] LABS: Chol HDL Ratio 2.2; Cholesterol 193 mg/dL (<=200); HDL Cholesterol 87 mg/dL (40-60); Triglycerides 243 mg/dL (<=150); VLDL CHOLESTEROL 48.6 mg/dL
[2023-08-05 13:02] LABS: Estimated Average Glucose 160 mg/dL; Glycohemoglobin A1C 7.2 % (4.5-6.2)
== END 2023-08-05 11:22 | disposition home or self-care (01) ==
LOC: LAB 11:22
PROVIDERS: PCP Family Medicine; Visit Provider Family Medicine
DX: E11.22 Type 2 diabetes mellitus with diabetic chronic kidney disease (principal); N18.31 Chronic kidney disease, stage 3a; Z13.220 Encounter for screening for lipoid disorders; L40.59 Other psoriatic arthropathy; Z79.899 Other long term (current) drug therapy; I48.0 Paroxysmal atrial fibrillation; Z79.01 Long term (current) use of anticoagulants; Z51.81 Encounter for therapeutic drug level monitoring
CPT/HCPCS: 36415; 80061; 83036; 85610

== ENCOUNTER 2023-08-05 11:24 | Outpatient (OUT) | payer MEDICARE, SELFPAY ==
--- OUTSIDE RECORDS SUMMARY | 2023-08-05 11:32 | XMS_ITS | CCD ---
Author Name Unknown Address [address] [place] [address] Organization [facility] [place] Care Team Providers Care Topstitcher Zigzag Name Role Phone Astrid Baker Unavailable CAYETANO, [...] Care Provider MD Williams Shepherd Attending Provider [phone] Williams Shepherd Admitting Unavailable Williams Shepherd Attending [...] anaphylaxis, Unknown (qualifier value) [facility] (1 source) sulfaSALAzine Drug Allergy rash [place] Other (1 source) Ciprofloxacin Drug Allergy 03-30-20 13 [facility] (2 sources) Ketorolac; 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: [Toradol] Drug Allergy 03-30-20 13 [facility] (1 source) metroNIDAZOLE Drug Allergy 03-30-20 13 [facility] (1 source) NSAIDs Drug allergy (disorder) 03-30-20 13 [facility] (1 source) pioglitazone Drug Allergy 03-30-20 13 [facility] (1 source) Sulfonamides (Antibiotic) Drug allergy (disorder) 03-30-20 [facility] (6 sources) Ketorolac; 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: [ketorolac] Drug Allergy 03-26-20 Unknown (qualifier value), Nausea (finding) [facility] Comment on above: Severe (5 sources) Latex; 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: [Latex] Drug allergy 03-26-20 Blister of skin AND/OR mucosa (finding) [facility] (3 sources) Non-steroidal anti-inflammatory agent; 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: [NSAIDs] Drug allergy Unknown (qualifier value) [facility] (4 sources) pioglitazone; 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: [pioglitazone] Drug Allergy 03-26-20 Unknown (qualifier value) [facility] (3 sources) Sulfonamides (Antibiotic); 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: [sulfa drugs] Drug allergy Unknown (qualifier value) [facility] (2 sources) metroNIDAZOLE; 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: [metronidazole] Drug Allergy 03-26-20 Redness of Skin [facility] (2 sources) Sulfonamides (Antibiotic); 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: [Sulfa (Sulfonamide Antibiotics)] Allergy to substance 03-26-20 Rash [facility] (2 sources) NSAIDS (Non-Steroidal Anti-Inflamma; 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: [NSAIDS (Non-Steroidal Anti-Inflamma] Allergy to substance 03-26-20 Anaphylaxis [facility] (1 source) Ciprofloxacin Drug Allergy 03-26-20 [facility] (1 source) Ketorolac Drug Allergy 03-26-20 [facility] (1 source) pioglitazone Drug Allergy 03-26-20 [facility] (1 source) Non-steroidal anti-inflammatory agent Drug allergy rash [place] Other (1 source) Substance with sulfonamide structure and antibacterial mechanism of action (substance) Drug allergy rash [place] Other Medications Current Medications Medication Drug Class(es) [...] Oral, q6hr Start Date: 02/03/23 Status: Ordered [id number] 200 actuat albuter ol 0.09 mg/actuat metered [...] Date: 09/19/20 Status: Ordered Cyanocobalamin-Liver Extract (Vitamin Z79-Tfyil) Tablet (1 source) Start: 03-26-2023 take 1 tablet by mouth once daily Cyanocobalamin-Live r Extract (Vitamin G61-Vlimu) Tablet Active 1 TAB PO every day at noon March 25, 2023 11:00pm dextromethorphan hydrobromide 1.5 mg/ml / pyrilamine maleate 1.5 mg/ml oral solution (1 source) Uncompetitive W-ezfhht-K-aspart[place] te Receptor Antagonist, Sigma-1 Agonist Start: 07-25-2023 take 10 mL by mouth every eight hours [place] DM 7.5-7.5 MG/5ML 10 mL Orally every [...] disorder 08-17-2019 Chronic Other aftercare (1 source) senior living (current) use of anticoagulants; 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] Onset: 12-11-2022 [place] Other aftercare (5 sources) Encounter for therapeutic drug level monitoring; 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: [ENC THERAPEUTC DRUG LEVL MONITORING] Onset: 10-18-2022 Episodic Other aftercare (1 source) Other terminal superintendent (current) drug therapy; 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: [OTH ALF CURRENT DRUG THERAPY] Onset: 10-31-2022 Episodic Other [...] Resolved: 05-21-2021 Episodic Other aftercare (1 source) 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; 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: [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 USE ORAL HYPOGLYCEMIC DX] Onset: 08-12-2022 Episodic Other aftercare (1 source) senior living (current) use of insulin; 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: [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 CURRENT USE OF INSULIN] Onset: 02-13-2022 Episodic [...] (COVID-19) RNA TREASURE+probe Ql (Unsp spec) Negative [facility] [place] Other COVID/FLU/RSV RT-PCR Negative [place] Other COVID/FLU/RSV RT-PCR Positive [facility] Other Calculus Analysison 03-27-20 23 Calcium oxalate dihydrate Infrared spectroscopy (Stone) [Mass fraction] 100 % Invalid Interpretation Code [facility] Comment on above: Performed By: #### 1 [id number] #### [facility] [address] [place] [address] Color (Stone) Roper Invalid Interpretation Code [facility] Comment on above: Performed By: #### 1 [id number] #### [facility] [address] [place] [address] Composition Comment Invalid Interpretation Code [facility] Comment on above: Result Comment: Perc entage (Represents the % composition) Performed By: #### 1 [id number] #### [facility] [address] [place] [address] Disclaimer: Comment Invalid Interpretation Code [facility] Comment on above: Result Comment: This test was developed and its performance characteristics determined by [facility]. It has not been cleared or approved by the Food and Drug Administration. Performed at: [address] [id number] PhD Silvestre Esquivel Performed By: #### 1 [id number] #### [facility] [address] [place] [address] Laboratory comment Noam (Report) Comment Invalid Interpretation Code [facility] Comment on above: Result Comment: Coco goode questions regarding Calculi Analysis contact [facility] at: [phone]. Performed By: #### 1 [id number] #### [facility] [address] [place] [address] Please Note: Comment Invalid Interpretation Code [facility] Comment on above: Result Comment: Calc javier report will follow via computer, mail or biomass plant manager delivery. Performed By: #### 1 [id number] #### [facility] [address] [place] [address] Size (Stone) [Entitic vol] 6x4 Invalid Interpretation Code [facility] Comment on above: Result Comment: Sing le piece received. Performed By: #### 1 [id number] #### [facility] [address] [place] [address] Specimen source subject Nom Comment Invalid Interpretation Code [facility] Comment on above: Result Comment: Not provided Performed By: #### 1 [id number] #### [facility] [address] [place] [address] Stone Photo Comment Invalid Interpretation Code [facility] Comment on above: Result Comment: Phot ograph will follow under a separate cover Performed By: #### 1 [id number] #### [facility] [address] [place] [address] Weight (Stone) 49 mg Invalid Interpretation Code [facility] Comment on above: Performed By: #### 1 [id number] #### [facility] [address] [place] [address] Lab Reportson 03-27-2023 Lab Reports [id number]:127 Normal [facility] Activated partial thrombopla stin time (aPTT) in platelet poor plasma by coagulation aOrdered By: Williams Shepherd on 03-26-2023 aPTT Coag (PPP) [Time] 35.9 s 25.1-36.5 [facility] Comment on above: A hematocrit value g reater than 55% may lead to inaccurate results in coagulation testing. Patients having hematocrit values >55% require a special collection tube for coagulation studies. Please contact the laboratory at [phone] for redraw instructions. Basic Metabolic Panelon 03-14 Anion gap [Moles/Vol] 13.0 mmol/L Normal 6.0-15.0 [facility] Comment on above: Performed By: #### P T, BMP, CBC, PTT #### [facility] [address] Calcium [Mass/Vol] 10.0 mg/dL Normal 8.6-10.3 [facility] Comment on above: Result Comment: PERF ORMED BY: [place] [address] PATHOLOGIST [employer] SPECIALIST BERNIE GRAYSON M.D. Performed By: #### P T, BMP, CBC, PTT #### [address] Chloride [Moles/Vol] 104 mmol/L Normal 98-107 [facility] Comment on above: Performed By: #### P T, BMP, CBC, PTT #### [address] CO2 [Moles/Vol] 30.0 mmol/L Normal 21.0-31.0 [facility] Comment on above: Performed By: #### P T, BMP, CBC, PTT #### [address] Creatinine [Mass/Vol] 0.85 mg/dL Normal 0.60-1.20 [facility] Comment on above: Performed By: #### P T, BMP, CBC, PTT #### [place] [address] [place] GFR/1.73 sq M.predicted MDRD (S/P/Bld) [Vol rate/Area] mL/min/{1.73_m2} Normal [facility] Comment on above: Performed By: #### P T, BMP, CBC, PTT #### [place] [address] [place] Glucose [Mass/Vol] 111 mg/dL High 70-100 [facility] Comment on above: Result Comment: [facility] Glucose Reference Range is dependent on time and content of last meal. Glucose of more than 200 mg/dL in a nonstressed, ambulatory subject supports the diagnosis of Diabetes Mellitus. ADA recommended reference range Performed By: #### P T, BMP, CBC, PTT #### [facility] [address] Potassium [Moles/Vol] 5.0 mmol/L Normal 3.5-5.1 [facility] Comment on above: Performed By: #### P T, BMP, CBC, PTT #### [facility] [address] Sodium [Moles/Vol] 142 mmol/L Normal 136-145 [facility] Comment on above: Performed By: #### P T, BMP, CBC, PTT #### [facility] [address] Urea nitrogen [Mass/Vol] 12 mg/dL Normal 7-25 [facility] Comment on above: Performed By: #### P T, BMP, CBC, PTT #### [facility] [address] Basophils Auto (Bld) [#/Vol] Ordered By: Williams Shepherd on 03-26-2023 Basophils (Bld) [#/Vol] 0.0 10*3/uL 0.0-0.2 [facility] Basophils/100 WBC Auto (Bld) Ordered By: Williams Shepherd on 03-26-2023 Basophils/100 WBC (Bld) 0.8 % . [facility] Calcium [Mass/volume] in Ser um or PlasmaOrdered By: Williams Shepherd on 03-26-2023 Calcium [Mass/Vol] 10.0 mg/dL 8.6-10.3 [facility] Carbon dioxide, total [Moles /volume] in Serum or PlasmaOrdered By: Williams Shepherd on 03-26-2023 CO2 [Moles/Vol] 30.0 mmol/L 21.0-31.0 [facility] Chloride [Moles/volume] in S fartun or PlasmaOrdered By: Williams Shepherd on 03-26-2023 Chloride [Moles/Vol] 104 mmol/L 98-107 [facility] Complete Blood Count Auto Di ffon 03-26-2023 Basophils (Bld) [#/Vol] 0.0 10*3/uL Normal 0.0-0.2 [facility] Comment on above: Result Comment: PERF ORMED BY: [place] [address] PATHOLOGIST [employer] SPECIALIST BERNIE GRAYSON M.D. Performed By: #### P T, BMP, CBC, PTT #### [facility] [address] Basophils/100 WBC (Bld) 0.8 % Normal . [facility] Comment on above: Performed By: #### P T, BMP, CBC, PTT #### [facility] [address] Eosinophils (Bld) [#/Vol] 0.3 10*3/uL Normal 0.0-0.45 [facility] Comment on above: Performed By: #### P T, BMP, CBC, PTT #### [facility] [address] [place] [address] Eosinophils/100 WBC (Bld) 4.3 % Normal . [facility] Comment on above: Performed By: #### P T, BMP, CBC, PTT #### [facility] [address] [place] [address] Erythrocyte distribution width (RBC) [Ratio] 14.8 % Normal 11.9-15.3 [facility] Comment on above: Performed By: #### P T, BMP, CBC, PTT #### [facility] [address] Hematocrit (Bld) [Volume fraction] 40.3 % Normal 34.0-46.4 [facility] Comment on above: Performed By: #### P T, BMP, CBC, PTT #### [facility] [address] [place] [address] Hemoglobin (Bld) [Mass/Vol] 13.3 g/dL Normal 11.8-15.4 [facility] Comment on above: Performed By: #### P T, BMP, CBC, PTT #### [address] Lymphocytes (Bld) [#/Vol] 2.2 10*3/uL Normal 1.00-4.8 [facility] Comment on above: Performed By: #### P T, BMP, CBC, PTT #### [address] Lymphocytes/100 WBC (Bld) 36.9 % Normal . [facility] Comment on above: Performed By: #### P T, BMP, CBC, PTT #### [address] MCH (RBC) [Entitic mass] 31.1 pg Normal 24.7-34.3 [facility] Comment on above: Performed By: #### P T, BMP, CBC, PTT #### [address] MCV (RBC) [Entitic vol] 94.4 fL Normal 80-100 [facility] Comment on above: Performed By: #### P T, BMP, CBC, PTT #### [address] Mean Corpuscular HGB Conc 32.9 g/dL Normal 32.0-35.0 [facility] Comment on above: Performed By: #### P T, BMP, CBC, PTT #### [address] Monocytes (Bld) [#/Vol] 0.5 10*3/uL Normal 0.0-0.8 [facility] Comment on above: Performed By: #### P T, BMP, CBC, PTT #### [address] Monocytes/100 WBC (Bld) 7.8 % Normal . [facility] Comment on above: Performed By: #### P T, BMP, CBC, PTT #### [address] [place] [address] [place] Neutrophils (Bld) [#/Vol] 3.0 10*3/uL Normal 1.8-7.7 [facility] Comment on above: Performed By: #### P T, BMP, CBC, PTT #### [facility] [address] [place] [address] [place] Neutrophils/100 WBC (Bld) 50.2 % Normal . [facility] Comment on above: Performed By: #### P T, BMP, CBC, PTT #### [facility] [address] [place] [address] NRBC% 0.3 /100{WBC} Normal 0-0.5 [facility] Comment on above: Performed By: #### P T, BMP, CBC, PTT #### [facility] [address] [place] [address] Platelet mean volume (Bld) [Entitic vol] 7.1 fL Normal 6.3-10.7 [facility] Comment on above: Performed By: #### P T, BMP, CBC, PTT #### [place] [address] [place] Platelets (Bld) [#/Vol] 363 10*3/uL Normal 150-450 [facility] Comment on above: Performed By: #### P T, BMP, CBC, PTT #### [address] RBC (Bld) [#/Vol] 4.27 10*6/uL Normal 3.60-5.00 [facility] Comment on above: Performed By: #### P T, BMP, CBC, PTT #### [facility] [address] [place] [address] [place] WBC (Bld) [#/Vol] 5.9 10*3/uL Normal 3.8-11.6 [facility] Comment on above: Performed By: #### P T, BMP, CBC, PTT #### [address] Creatinine [Mass/volume] in Serum or PlasmaOrdered By: Williams Shepherd on 03-26-2023 Creatinine [Mass/Vol] 0.85 mg/dL 0.60-1.20 [facility] ECG 12 lead ECGon 03-26-2023 [address] [facility] [address] Electrocardiograph Report Signed Patient: Wilda Sen MR#: [id number] 8 : 1945 Acct:[id number] Age/Sex: 77 / F ADM Date: 03/26/23 Loc: PS Room: Type: [facility] Attending Dr: Williams Shepherd MD Ordering Provider: [...] By Maru Whitehead DO 03/26 190 Normal [facility] Eosinophils Auto (Bld) [#/Vo l]Ordered By: Williams Shepherd on 03-26-2023 Eosinophils (Bld) [#/Vol] 0.3 10*3/uL 0.0-0.45 [facility] Eosinophils/100 WBC Auto (Bl d)Ordered By: Williams Shepherd on 03-26-2023 Eosinophils/100 WBC (Bld) 4.3 % . [facility] Erythrocyte distribution wid th Auto (RBC) [Ratio]Ordered By: Williams Shepherd on 03-26-2023 Erythrocyte distribution width (RBC) [Ratio] 14.8 % 11.9-15.3 [facility] Glucose [Mass/volume] in Ser um or PlasmaOrdered By: Williams Shepherd on 03-26-2023 Glucose [Mass/Vol] 111 mg/dL 70-100 [facility] Comment on above: ADA recommended refe rence rangeRandom Glucose Reference Range is dependent on time and content of last meal. Glucose of more than 200 mg/dL in a nonstressed, ambulatory subject supports the diagnosis of Diabetes Mellitus. Hematocrit Auto (Bld) [Volum e fraction]Ordered By: Williams Shepherd on 03-26-2023 Hematocrit (Bld) [Volume fraction] 40.3 % 34.0-46.4 [facility] Hemoglobin [Mass/volume] in BloodOrdered By: Williams Shepherd on 03-26-2023 Hemoglobin (Bld) [Mass/Vol] 13.3 g/dL 11.8-15.4 [facility] INR in Platelet poor plasma by Coagulation assayOrdered By: Williams Shepherd on 03-26-2023 INR Coag (PPP) [Relative time] 2.3 {INR} [facility] Comment on above: INR Therapeutic Rang e [...] RBC Auto (Bld) [#/Vol] 5.9 10*3/uL 3.8-11.6 [facility] Lymphocytes Auto (Bld) [#/Vo l]Ordered By: Williams Shepherd on 03-26-2023 Lymphocytes (Bld) [#/Vol] 2.2 10*3/uL 1.00-4.8 [facility] Lymphocytes/100 WBC Auto (Bl d)Ordered By: Williams Shepherd on 03-26-2023 Lymphocytes/100 WBC (Bld) 36.9 % . [facility] MCH Auto (RBC) [Entitic mass ]Ordered By: Williams Shepherd on 03-26-2023 MCH (RBC) [Entitic mass] 31.1 pg 24.7-34.3 [facility] MCHC Auto (RBC) [Mass/Vol]Or dered By: Williams Shepherd on 03-26-2023 MCHC (RBC) [Mass/Vol] 32.9 g/dL 32.0-35.0 [facility] MCV Auto (RBC) [Entitic vol] Ordered By: Williams Shepherd on 03-26-2023 MCV (RBC) [Entitic vol] 94.4 fL 80-100 [facility] Monocytes Auto (Bld) [#/Vol] Ordered By: Williams Shepherd on 03-26-2023 Monocytes (Bld) [#/Vol] 0.5 10*3/uL 0.0-0.8 [facility] Monocytes/100 WBC Auto (Bld) Ordered By: Williams Shepherd on 03-26-2023 Monocytes/100 WBC (Bld) 7.8 % . [facility] Neutrophils Auto (Bld) [#/Vo l]Ordered By: Williams Shepherd on 03-26-2023 Neutrophils (Bld) [#/Vol] 3.0 10*3/uL 1.8-7.7 [facility] Neutrophils/100 WBC Auto (Bl d)Ordered By: Williams Shepherd on 03-26-2023 Neutrophils/100 WBC (Bld) 50.2 % . [facility] No Panel InformationOrdered By: Williams Shepherd on 03-26-2023 Estimated GFR (CKD-EPI) > 60.0 mL/Min [facility] Creatinine Clearance (Chem N/A [facility] Nucleated erythrocytes [Pres ence] in Blood by Automated countOrdered By: Williams Shepherd on 03-26-2023 Nucleated RBC Auto Ql (Bld) 0.3 /100{WBC} 0-0.5 [facility] Partial Thromboplastin Timeo n 03-26-2023 aPTT Coag (Bld) [Time] 35.9 s Normal 25.1-36.5 [facility] Comment on above: Result Comment: A he matocrit value greater than 55% may lead to inaccurate results in coagulation testing. Patients having hematocrit values >55% require a special collection tube for coagulation studies. Please contact the laboratory at [phone] for redraw instructions. PERFORMED BY: [place] [id number] PATHOLOGIST [employer] SPECIALIST BERNIE GRAYSON M.D. Performed By: #### P T, BMP, CBC, PTT #### [address] Platelet mean volume Auto (B ld) [Entitic vol]Ordered By: Williams Shepherd on 03-26-2023 Platelet mean volume (Bld) [Entitic vol] 7.1 fL 6.3-10.7 [facility] Platelets Auto (Bld) [#/Vol] Ordered By: Williams Shepherd on 03-26-2023 Platelets (Bld) [#/Vol] 363 10*3/uL 150-450 [facility] Potassium [Moles/volume] in Serum or PlasmaOrdered By: Williams Shepherd on 03-26-2023 Potassium [Moles/Vol] 5.0 mmol/L 3.5-5.1 [facility] Prothrombin Time INRon 03-26 INR Coag (PPP) [Relative time] 2.3 {INR} Normal [facility] Comment on above: Result Comment: INR Therapeutic [...] #### P T, BMP, CBC, PTT #### [address] PT Coag (PPP) [Time] 26.6 s High 9.0-12.9 [facility] Comment on above: Result Comment: A he matocrit value greater than 55% may lead to inaccurate results in coagulation testing. Patients having hematocrit values >55% require a special collection tube for coagulation studies. Please contact the laboratory at [phone] for redraw instructions. Performed By: #### P T, BMP, CBC, PTT #### [address] Prothrombin time (PT)Ordered By: Williams Shepherd on 03-26-2023 PT Coag (PPP) [Time] 26.6 s 9.0-12.9 [facility] Comment on above: A hematocrit value g reater than 55% may lead to inaccurate results in coagulation testing. Patients having hematocrit values >55% require a special collection tube for coagulation studies. Please contact the laboratory at [phone] for redraw instructions. RBC Auto (Bld) [#/Vol]Ordere d By: Williams Shepherd on 03-26-2023 RBC (Bld) [#/Vol] 4.27 10*6/uL 3.60-5.00 [facility] Serum or plasma anion gap de terminationOrdered By: Williams Shepherd on 03-26-2023 Anion gap [Moles/Vol] 13.0 mmol/L 6.0-15.0 [facility] Sodium [Moles/volume] in Ser um or PlasmaOrdered By: Williams Shepherd on 03-26-2023 Sodium [Moles/Vol] 142 mmol/L 136-145 [facility] Urea nitrogen [Mass/volume] in Serum or PlasmaOrdered By: Williams Shepherd on 03-26-2023 Urea nitrogen [Mass/Vol] 12 mg/dL 7-25 [facility] WBC Auto (Bld) [#/Vol]Ordere d By: Williams Shepherd on 03-26-2023 WBC (Bld) [#/Vol] 5.9 10*3/uL 3.8-11.6 [facility] Consultation Noteon 03-17-20 Consultation Note [id number]:12 7 [facility] Lab Reportson 02-12-2023 Lab Reports [id number]:12 7 [facility] RAD - MISCon 02-12-2023 RAD - MISC [id number]:12 7 [facility] RAD - CT Reporton 02-05-2023 RAD - CT Report [id number]:12 7 Normal [facility] RAD - MISCon 02-05-2023 RAD - MISC [id number]:12 7 Normal [facility] Ambulatory Visit Summaryon 0 02-03-2023 Ambulatory Visit [...] AGUIAR, Williams Venegas Where: [facility] [place] [facility] Patient Educationon 02-04-20 Patient Education Urology Kidney [...] these instructions at home: Medicines ? Take bvon-nur-njilyib and prescription medicines only as told by [...] follow (more content not included)... Normal [facility] Urology Office/Clinic Noteon 02-03-2023 Urology Office/Clinic Note Chief Complaint 16 month follow up w/ CT scan HPI Staff Pt is here today for 16 month follow up w/ CT scan done @[facility] on 01/15/23. CT scan shows [...] MD, URL [address] [place] [address]- Additional Instructions: Patient Education Kidney Stones I, Fanny Bowen, personally scribed for Dr. Shepherd on 02/03/2023 12:04:03. . Documentation recorded by the scribe, Fanny Bowen, accurately reflects the services(s) I performed and decisions made by me. Authenticated by Dr. Shepherd on 02/03/2023 12:37:35. Portions of this record may have been created with voice recognition artificial intelligence software, specifically [employer] and or [employer]. Substitutions may have occurred due to the inherent limitations of voice recognition and artificial intelligence software. 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 Normal [facility] Comment on above: Result Comment: Elec tronically Signed By: Williams SHEPHERD MD\.br\Date and Time Signed: 02/03/23 12:39 EDT\.br\Electronically Co-Signed By: Fanny Bowen\.br\Date and Time Co-Signed: 02/03/23 12:04 EDT PROTIMEon 12-02-2022 INR Coag (PPP) [Relative time] 3.62 {INR} Normal [facility] Comment on above: Performed By: #### P T #### [facility] [address] [address] [address] Tg Fierro INR GUIDELINES SEE BELOW Normal [facility] Comment on above: Result Comment: LAURENCE RED INR: 2.0 - 3.0 CONDITIONS NOT LISTED BELOW 2.5 - 3.5 FOR PROSTHETIC HEART VALVE REPLACEMENT 2.5 - 3.5 RECURRENT THROMBOSIS Performed By: #### P T #### [facility] [address] [address] [address] Tg Fierro PT Coag (PPP) [Time] 35.7 s Critically high 9.0-11.6 [facility] Comment on above: Performed By: #### P T #### [facility] [address] [place] [address] Dr. Tg Fierro PROTIMEon 11-11-2022 INR Coag (PPP) [Relative time] 1.90 {INR} Normal [facility] Comment on above: Performed By: #### P T #### [facility] [address] [place] [address] Dr. Tg Fierro INR GUIDELINES SEE BELOW Normal [facility] Comment on above: Result Comment: LAURENCE RED INR: 2.0 - 3.0 CONDITIONS NOT LISTED BELOW 2.5 - 3.5 FOR PROSTHETIC HEART VALVE REPLACEMENT 2.5 - 3.5 RECURRENT THROMBOSIS Performed By: #### P T #### [facility] [address] [place] [address] Dr. Tg Fierro PT Coag (PPP) [Time] 19.4 s Critically high 9.0-11.6 [facility] Comment on above: Performed By: #### P T #### [facility] [address] [place] [address] Dr. Tg Fierro CBC AUTO DIFFon 10-25-2022 BASO # 0.0 103/ul Normal 0.0-0.1 [facility] Comment on above: Performed By: #### P T #### [facility] [address] [place] [address] Dr. Tg Fierro Basophils/100 WBC (Bld) 0.5 % Normal 0.2-2.0 [facility] Comment on above: Performed By: #### P T #### [facility] [address] [place] [address] Dr. Tg Fierro EO # 0.2 103/ul Normal 0.0-0.7 [facility] Comment on above: Performed By: #### P T #### [facility] [address] [place] [address] Dr. Tg Fierro Eosinophils/100 WBC (Bld) 2.7 % Normal 0.9-7.0 [facility] Comment on above: Performed By: #### P T #### [facility] [address] [address] [address] Tg Fierro Erythrocyte distribution width (RBC) [Ratio] 13.4 % Normal 11.0-15.0 [facility] Comment on above: Performed By: #### P T #### [facility] [address] [place] [address] Dr. Tg Fierro Hematocrit (Bld) [Volume fraction] 40.7 % Normal 36.0-48.0 [facility] Comment on above: Performed By: #### P T #### [facility] [address] [place] [address] Dr. Tg Fierro Hemoglobin (Bld) [Mass/Vol] 13.2 g/dL Normal 12.0-16.0 [facility] Comment on above: Performed By: #### P T #### [facility] [address] [place] [address] Dr. Tg Fierro IG # 0.03 10e3/ul Normal 0.00-0.03 [facility] Comment on above: Performed By: #### P T #### [facility] [address] [place] [address] Dr. Tg Fierro IG % 0.5 % Normal 0.0-0.5 [facility] Comment on above: Performed By: #### P T #### [facility] [address] [place] [address] Dr. Tg Fierro LYMPH # 2.1 103/ul Normal 1.2-3.8 [facility] Comment on above: Performed By: #### P T #### [facility] [address] [place] [address] Dr. Tg Fierro Lymphocytes/100 WBC (Bld) 34.9 % Normal 20.5-60.0 [facility] Comment on above: Performed By: #### P T #### [facility] [address] [place] [address] Dr. Tg Fierro MANUAL DIFF REQ NO Normal [facility] Comment on above: Performed By: #### P T #### [facility] [address] [place] [address] Dr. Tg Fierro MCH (RBC) [Entitic mass] 30.5 pg Normal 26.7-34.0 [facility] Comment on above: Performed By: #### P T #### [facility] [address] [place] [address] Dr. Tg Fierro MCHC (RBC) [Mass/Vol] 32.4 g/dL Normal 29.9-35.2 [facility] Comment on above: Performed By: #### P T #### [facility] [address] [place] [address] Dr. Tg Fierro MCV (RBC) [Entitic vol] 94.0 fL Normal 81.0-99.0 [facility] Comment on above: Performed By: #### P T #### [facility] [address] [place] [address] Dr. Tg Fierro MONO # 0.4 103/ul Normal 0.3-0.8 [facility] Comment on above: Performed By: #### P T #### [facility] [address] [place] [address] Dr. Tg Fierro Monocytes/100 WBC (Bld) 7.1 % Normal 1.7-12.0 [facility] Comment on above: Performed By: #### P T #### [facility] [address] [place] [address] Dr. Tg Fierro NEUT # 3.2 103/ul Normal 1.4-6.5 [facility] Comment on above: Performed By: #### P T #### [facility] [address] [place] [address] Dr. Tg Fierro Neutrophils/100 WBC (Bld) 54.3 % Normal 43.0-75.0 [facility] Comment on above: Performed By: #### P T #### [facility] [address] [place] [address] Dr. Tg Fierro Platelet mean volume (Bld) [Entitic vol] 8.7 fL Critically low 9.5-13.5 [facility] Comment on above: Performed By: #### P T #### [facility] [address] [place] [address] Dr. Tg Fierro PLT 295 103/ul Normal 150-450 [facility] Comment on above: Performed By: #### P T #### [facility] [address] [place] [address] Dr. Tg Fierro RBC 4.33 106/ul Normal 4.20-5.40 [facility] Comment on above: Performed By: #### P T #### [facility] [address] [place] [address] Dr. Tg Fierro WBC 5.9 103/ul Normal 4.0-11.0 [facility] Comment on above: Performed By: #### P T #### [facility] [address] [place] [address] Dr. Tg Fierro PROF 14(COMP METB)on 023 Albumin [Mass/Vol] 3.8 g/dL Normal 3.4-5.0 [facility] Comment on above: Performed By: #### C MP #### [facility] [address] [place] [address] Dr. Tg Fierro Albumin/Globulin [Mass ratio] 1.2 {ratio} Normal [facility] Comment on above: Performed By: #### C MP #### [facility] [address] [place] [address] Dr. Tg Fierro ALP [Catalytic activity/Vol] 49 U/L Normal 46-116 [facility] Comment on above: Performed By: #### C MP #### [facility] [address] [place] [address] Dr. Tg Fierro ALT [Catalytic activity/Vol] 21 U/L Normal 14-59 [facility] Comment on above: Performed By: #### C MP #### [facility] [address] [place] [address] Dr. Tg Fierro Anion gap [Moles/Vol] 13.3 mmol/L Normal [facility] Comment on above: Performed By: #### C MP #### [facility] [address] [place] [address] Dr. Tg Fierro AST [Catalytic activity/Vol] 14 U/L Critically low 15-37 [facility] Comment on above: Performed By: #### C MP #### [facility] [address] [address] [address] Tg Fierro Bilirubin [Mass/Vol] 0.5 mg/dL Normal 0.2-1.0 [facility] Comment on above: Performed By: #### C MP #### [facility] [address] [address] [address] Tg Fierro Calcium [Mass/Vol] 9.5 mg/dL Normal 8.5-10.1 [facility] Comment on above: Performed By: #### C MP #### [facility] [address] [address] [address] Tg Fierro Chloride [Moles/Vol] 104 mmol/L Normal 98-107 [facility] Comment on above: Performed By: #### C MP #### [facility] [address] [address] [address] Tg Fierro CO2 [Moles/Vol] 29.3 mmol/L Normal 21.0-32.0 [facility] Comment on above: Performed By: #### C MP #### [facility] [address] [place] [address] Dr. Tg Fierro Creatinine [Mass/Vol] 0.93 mg/dL Normal 0.55-1.02 [facility] Comment on above: Performed By: #### C MP #### [facility] [address] [address] [address] Tg Fierro EGFR-AF [place]TH [place]ORE[place] >60 Normal >=60 [facility] Comment on above: Performed By: #### C MP #### [facility] [address] [address] [address] Tg Fierro EGFR-NON AF [place] 59 mL/min/1.73m2 Critically low >=60 [facility] Comment on above: Performed By: #### C MP #### [facility] [address] [place] [address] Dr. Tg Fierro Globulin (S) [Mass/Vol] 3.2 g/dL Normal [facility] Comment on above: Performed By: #### C MP #### [facility] [address] [place] [address] Dr. Tg Fierro Glucose [Mass/Vol] 186 mg/dL Critically high 74-106 [facility] Comment on above: Performed By: #### C MP #### [facility] [address] [address] [address] Tg Fierro Potassium [Moles/Vol] 4.6 mmol/L Normal 3.5-5.1 [facility] Comment on above: Performed By: #### C MP #### [facility] [address] [place] [address] Dr. Tg Fierro Protein [Mass/Vol] 7.0 g/dL Normal 6.4-8.2 [facility] Comment on above: Performed By: #### C MP #### [facility] [address] [place] [address] Dr. Tg Fierro Sodium [Moles/Vol] 142 mmol/L Normal 136-145 [facility] Comment on above: Performed By: #### C MP #### [facility] [address] [place] [address] Dr. Tg Fierro Urea nitrogen [Mass/Vol] 15.0 mg/dL Normal 7.0-18.0 [facility] Comment on above: Performed By: #### C MP #### [facility] [address] [place] [address] Dr. Tg Fierro Urea nitrogen/Creatinine [Mass ratio] 16.1 mg/mg Normal [facility] Comment on above: Performed By: #### C MP #### [facility] [address] [place] [address] Dr. Tg Fierro SED RATE IVINSERGRENon 2022 SED RATE 9 mm/hr Normal <=30 [facility] Comment on above: Performed By: #### C MP #### [facility] [address] [place] [address] Dr. Tg Fierro PROTIMEon 10-14-2022 INR Coag (PPP) [Relative time] 1.94 {INR} Normal [facility] Comment on above: Performed By: #### P T #### [facility] [address] [place] [address] Dr. Tg Fierro INR GUIDELINES SEE BELOW Normal [facility] Comment on above: Result Comment: LAURENCE RED INR: 2.0 - 3.0 CONDITIONS NOT LISTED BELOW 2.5 - 3.5 FOR PROSTHETIC HEART VALVE REPLACEMENT 2.5 - 3.5 RECURRENT THROMBOSIS Performed By: #### P T #### [facility] [address] [place] [address] Dr. Tg Fierro PT Coag (PPP) [Time] 19.8 s Critically high 9.0-11.6 [facility] Comment on above: Performed By: #### P T #### [facility] [address] [place] [address] Dr. Tg Fierro CBC AUTO DIFFon 09-24-2022 BASO # 0.1 103/ul Normal 0.0-0.1 [facility] Comment on above: Performed By: #### P T #### [facility] [address] [place] [address] Dr. Tg Fierro Basophils/100 WBC (Bld) 0.7 % Normal 0.2-2.0 [facility] Comment on above: Performed By: #### P T #### [facility] [address] [place] [address] Dr. Tg Fierro EO # 0.3 103/ul Normal 0.0-0.7 [facility] Comment on above: Performed By: #### P T #### [facility] [address] [place] [address] Dr. Tg Fierro Eosinophils/100 WBC (Bld) 3.6 % Normal 0.9-7.0 [facility] Comment on above: Performed By: #### P T #### [facility] [address] [place] [address] Dr. Tg Fierro Erythrocyte distribution width (RBC) [Ratio] 13.4 % Normal 11.0-15.0 [facility] Comment on above: Performed By: #### P T #### [facility] [address] [address] [address] Tg Fierro Hematocrit (Bld) [Volume fraction] 38.4 % Normal 36.0-48.0 [facility] Comment on above: Performed By: #### P T #### [facility] [address] [address] [address] Tg Fierro Hemoglobin (Bld) [Mass/Vol] 12.7 g/dL Normal 12.0-16.0 [facility] Comment on above: Performed By: #### P T #### [facility] [address] [place] [address] Dr. Tg Fierro IG # 0.05 10e3/ul Critically high 0.00-0.03 [facility] Comment on above: Performed By: #### P T #### [facility] [address] [place] [address] Dr. Tg Fierro IG % 0.7 % Critically high 0.0-0.5 [facility] Comment on above: Performed By: #### P T #### [facility] [address] [place] [address] Dr. Tg Fierro LYMPH # 2.6 103/ul Normal 1.2-3.8 [facility] Comment on above: Performed By: #### P T #### [facility] [address] [place] [address] Dr. Tg Fierro Lymphocytes/100 WBC (Bld) 34.2 % Normal 20.5-60.0 [facility] Comment on above: Performed By: #### P T #### [facility] [address] [place] [address] Dr. Tg Fierro MANUAL DIFF REQ NO Normal [facility] Comment on above: Performed By: #### P T #### [facility] [address] [place] [address] Dr. Tg Fierro MCH (RBC) [Entitic mass] 31.2 pg Normal 26.7-34.0 [facility] Comment on above: Performed By: #### P T #### [facility] [address] [place] [address] Dr. Tg Fierro MCHC (RBC) [Mass/Vol] 33.1 g/dL Normal 29.9-35.2 [facility] Comment on above: Performed By: #### P T #### [facility] [address] [place] [address] Dr. Tg Fierro MCV (RBC) [Entitic vol] 94.3 fL Normal 81.0-99.0 [facility] Comment on above: Performed By: #### P T #### [facility] [address] [place] [address] Dr. Tg Fierro MONO # 0.6 103/ul Normal 0.3-0.8 [facility] Comment on above: Performed By: #### P T #### [facility] [address] [place] [address] Dr. Tg Fierro Monocytes/100 WBC (Bld) 8.1 % Normal 1.7-12.0 [facility] Comment on above: Performed By: #### P T #### [facility] [address] [place] [address] Dr. Tg Fierro NEUT # 4.1 103/ul Normal 1.4-6.5 [facility] Comment on above: Performed By: #### P T #### [facility] [address] [place] [address] Dr. Tg Fierro Neutrophils/100 WBC (Bld) 52.7 % Normal 43.0-75.0 [facility] Comment on above: Performed By: #### P T #### [facility] [address] [place] [address] Dr. Tg Fierro Platelet mean volume (Bld) [Entitic vol] 8.7 fL Critically low 9.5-13.5 [facility] Comment on above: Performed By: #### P T #### [facility] [address] [place] [address] Dr. Tg Fierro PLT 278 103/ul Normal 150-450 [facility] Comment on above: Performed By: #### P T #### [facility] [address] [place] [address] Dr. Tg Fierro RBC 4.07 106/ul Critically low 4.20-5.[address] [facility] Comment on above: Performed By: #### P T #### [facility] [address] [place] [address] Dr. Tg Fierro WBC 7.7 103/ul Normal 4.0-11.0 [facility] Comment on above: Performed By: #### P T #### [facility] [address] [address] [address] Tg Fierro PROF 14(COMP METB)on 023 Albumin [Mass/Vol] 3.9 g/dL Normal 3.4-5.0 [facility] Comment on above: Performed By: #### C MP #### [facility] [address] [place] [address] Dr. Tg Fierro Albumin/Globulin [Mass ratio] 1.4 {ratio} Normal [facility] Comment on above: Performed By: #### C MP #### [facility] [address] [place] [address] Dr. Tg Fierro ALP [Catalytic activity/Vol] 59 U/L Normal 46-116 [facility] Comment on above: Performed By: #### C MP #### [facility] [address] [place] [address] Dr. Tg Fierro ALT [Catalytic activity/Vol] 21 U/L Normal 14-59 [facility] Comment on above: Performed By: #### C MP #### [facility] [address] [place] [address] Dr. Tg Fierro Anion gap [Moles/Vol] 10.8 mmol/L Normal [facility] Comment on above: Performed By: #### C MP #### [facility] [address] [place] [address] Dr. Tg Fierro AST [Catalytic activity/Vol] 9 U/L Critically low 15-37 [facility] Comment on above: Performed By: #### C MP #### [facility] [address] [place] [address] Dr. Tg Fierro Bilirubin [Mass/Vol] 0.3 mg/dL Normal 0.2-1.0 [facility] Comment on above: Performed By: #### C MP #### [facility] [address] [address] [address] Tg Fierro Calcium [Mass/Vol] 9.1 mg/dL Normal 8.5-10.1 [facility] Comment on above: Performed By: #### C MP #### [facility] [address] [address] [address] Tg Fierro Chloride [Moles/Vol] 104 mmol/L Normal 98-107 [facility] Comment on above: Performed By: #### C MP #### [facility] [address] [place] [address] Dr. Tg Fierro CO2 [Moles/Vol] 28.3 mmol/L Normal 21.0-32.0 [facility] Comment on above: Performed By: #### C MP #### [facility] [address] [place] [address] Dr. Tg Fierro Creatinine [Mass/Vol] 0.86 mg/dL Normal 0.55-1.02 [facility] Comment on above: Performed By: #### C MP #### [facility] [address] [place] [address] Dr. Tg Fierro EGFR-AF [place] >60 Normal >=60 [facility] Comment on above: Performed By: #### C MP #### [facility] [address] [address] [address] Tg Fierro EGFR-NON AF [place] >60 Normal >=60 [facility] Comment on above: Performed By: #### C MP #### [facility] [address] [address] [address] Tg Fierro Globulin (S) [Mass/Vol] 2.7 g/dL Normal [facility] Comment on above: Performed By: #### C MP #### [facility] [address] [place] [address] Dr. Tg Fierro Glucose [Mass/Vol] 120 mg/dL Critically high 74-106 [facility] Comment on above: Performed By: #### C MP #### [facility] [address] [address] [address] Tg Fierro Potassium [Moles/Vol] 4.1 mmol/L Normal 3.5-5.1 [facility] Comment on above: Performed By: #### C MP #### [facility] [address] [address] [address] Tg Fierro Protein [Mass/Vol] 6.6 g/dL Normal 6.4-8.[address] [facility] Comment on above: Performed By: #### C MP #### [facility] [address] [address] [address] Tg Fierro Sodium [Moles/Vol] 139 mmol/L Normal 136-145 [facility] Comment on above: Performed By: #### C MP #### [facility] [address] [address] [address] Tg Fierro Urea nitrogen [Mass/Vol] 13.0 mg/dL Normal 7.0-18.0 [facility] Comment on above: Performed By: #### C MP #### [facility] [address] [address] [address] Tg Fierro Urea nitrogen/Creatinine [Mass ratio] 15.1 mg/mg Normal [facility] Comment on above: Performed By: #### C MP #### [facility] [address] [address] [address] Tg Fierro PROTIMEon 09-24-2022 INR Coag (PPP) [Relative time] 1.35 {INR} Normal [facility] Comment on above: Performed By: #### P T #### [facility] [address] [address] [address] Tg Fierro INR GUIDELINES SEE BELOW Normal [facility] Comment on above: Result Comment: LAURENCE RED INR: 2.0 - 3.0 CONDITIONS NOT LISTED BELOW 2.5 - 3.5 FOR PROSTHETIC HEART VALVE REPLACEMENT 2.5 - 3.5 RECURRENT THROMBOSIS Performed By: #### P T #### [facility] [address] [place] [address] Dr. Tg Fierro PT Coag (PPP) [Time] 14.1 s Critically high 9.0-11.6 [facility] Comment on above: Performed By: #### P T #### [facility] [address] [address] [address] Tg Fierro [facility] SED RATE 8 mm/hr Normal <=30 [facility] Comment on above: Performed By: #### C MP #### [facility] [address] [address] [address] Tg Fierro PROTIMEon 09-09-2022 INR Coag (PPP) [Relative time] 1.23 {INR} Normal [facility] Comment on above: Performed By: #### P T #### [facility] [address] [place] [address] Dr. Tg Fierro INR GUIDELINES SEE BELOW Normal [facility] Comment on above: Result Comment: LAURENCE RED INR: 2.0 - 3.0 CONDITIONS NOT LISTED BELOW 2.5 - 3.5 FOR PROSTHETIC HEART VALVE REPLACEMENT 2.5 - 3.5 RECURRENT THROMBOSIS Performed By: #### P T #### [facility] [address] [address] [address] Tg Fierro PT Coag (PPP) [Time] 12.9 s Critically high 9.0-11.6 [facility] Comment on above: Performed By: #### P T #### [facility] [address] [place] [address] Dr. Tg Fierro ECHOCARDIO M/2D COMPLETEon 0 09-02-2022 ECHOCARDIO M/2D COMPLETE Patient: WILDA SEN Exam Date: 09/02/2022 : 1945 Gender:F Ordering : DR JAYME PEREZ . Admission #: [id number] Family : Order #: [id number] CLICK HERE TO VIEW EXAM ECHOCARDIOGRAM REPORT [...] Bender M.D. on 09/03/2022 at 17:25 Normal [facility] GLYCOHEMOGLOBIN A1Con 2022 ADA RECOMMENDATION SEE BELOW [facility] Comment on above: Result Comment: ADA RECOMMENDED LIMIT 4.0 - 6.0 ADA THERAPEUTIC TARGET < 7.0 ACTION SUGGESTED > 7.0 Performed By: #### A 1C #### [facility] [address] [place] [address] Dr. Tg Fierro Glucose [Mass/Vol] 148 mg/dL Normal [facility] Comment on above: Performed By: #### A 1C #### [facility] [address] [place] [address] [id number] [address] Tg Fierro HbA1c (Bld) [Mass fraction] 6.8 % Critically high 4.5-6.2 [facility] Comment on above: Performed By: #### A 1C #### [facility] [address] [place] [address] Dr. Tg Fierro CBC AUTO DIFFon 08-05-2022 BASO # 0.1 103/ul Normal 0.0-0.1 [facility] Comment on above: Performed By: #### C BC #### [facility] [address] [place] [address] Dr. Tg Fierro Basophils/100 WBC (Bld) 0.8 % Normal 0.2-2.0 [facility] Comment on above: Performed By: #### C BC #### [facility] [address] [place] [address] Dr. Tg Fierro EO # 0.5 103/ul Normal 0.0-0.7 [facility] Comment on above: Performed By: #### C BC #### [facility] [address] [place] [address] Dr. Tg Fierro Eosinophils/100 WBC (Bld) 7.3 % Critically high 0.9-7.0 [facility] Comment on above: Performed By: #### C BC #### [facility] [address] [place] [address] Dr. Tg Fierro Erythrocyte distribution width (RBC) [Ratio] 13.4 % Normal 11.0-15.0 [facility] Comment on above: Performed By: #### C BC #### [facility] [address] [place] [address] Dr. Tg Fierro Hematocrit (Bld) [Volume fraction] 37.1 % Normal 36.0-48.0 [facility] Comment on above: Performed By: #### C BC #### [facility] [address] [place] [address] Dr. Tg Fierro Hemoglobin (Bld) [Mass/Vol] 12.9 g/dL Normal 12.0-16.0 [facility] Comment on above: Performed By: #### C BC #### [facility] [address] [place] [address] Dr. Tg Fierro IG # 0.03 10e3/ul Normal 0.00-0.03 [facility] Comment on above: Performed By: #### C BC #### [facility] [address] [place] [address] Dr. Tg Fierro IG % 0.5 % Normal 0.0-0.5 [facility] Comment on above: Performed By: #### C BC #### [facility] [address] [place] [address] Dr. Tg Fierro LYMPH # 2.3 103/ul Normal 1.2-3.8 [facility] Comment on above: Performed By: #### C BC #### [facility] [address] [place] [address] Dr. Tg Fierro Lymphocytes/100 WBC (Bld) 34.9 % Normal 20.5-60.0 [facility] Comment on above: Performed By: #### C BC #### [facility] [address] [place] [address] Dr. Tg Fierro MANUAL DIFF REQ NO Normal [facility] Comment on above: Performed By: #### C BC #### [facility] [address] [place] [address] Dr. Tg Fierro MCH (RBC) [Entitic mass] 31.0 pg Normal 26.7-34.0 [facility] Comment on above: Performed By: #### C BC #### [facility] [address] [place] [address] Dr. Tg Fierro MCHC (RBC) [Mass/Vol] 34.8 g/dL Normal 29.9-35.2 [facility] Comment on above: Performed By: #### C BC #### [facility] [address] [place] [address] Dr. Tg Fierro MCV (RBC) [Entitic vol] 89.2 fL Normal 81.0-99.0 [facility] Comment on above: Performed By: #### C BC #### [facility] [address] [place] [address] Dr. Tg Fierro MONO # 0.4 103/ul Normal 0.3-0.8 [facility] Comment on above: Performed By: #### C BC #### [facility] [address] [place] [address] Dr. Tg Fierro Monocytes/100 WBC (Bld) 6.1 % Normal 1.7-12.0 [facility] Comment on above: Performed By: #### C BC #### [facility] [address] [place] [address] Dr. Tg Fierro NEUT # 3.3 103/ul Normal 1.4-6.5 [facility] Comment on above: Performed By: #### C BC #### [facility] [address] [place] [address] Dr. Tg Fierro Neutrophils/100 WBC (Bld) 50.4 % Normal 43.0-75.0 [facility] Comment on above: Performed By: #### C BC #### [facility] [address] [place] [address] Dr. Tg Fierro Platelet mean volume (Bld) [Entitic vol] 8.6 fL Critically low 9.5-13.5 [facility] Comment on above: Performed By: #### C BC #### [facility] [address] [place] [address] Dr. Tg Fierro PLT 336 103/ul Normal 150-450 [facility] Comment on above: Performed By: #### C BC #### [facility] [address] [place] [address] Dr. Tg Fierro RBC 4.16 106/ul Critically low 4.20-5.40 [facility] Comment on above: Performed By: #### C BC #### [facility] [address] [place] [address] Dr. Tg Fierro WBC 6.4 103/ul Normal 4.0-11.0 [facility] Comment on above: Performed By: #### C BC #### [facility] [address] [place] [address] Dr. Tg Fierro PROF 14(COMP METB)on 023 Albumin [Mass/Vol] 3.9 g/dL Normal 3.4-5.0 [facility] Comment on above: Performed By: #### P T #### [facility] [address] [place] [address] Dr. Tg Fierro Albumin/Globulin [Mass ratio] 1.3 {ratio} Normal [facility] Comment on above: Performed By: #### P T #### [facility] [address] [address] [address] Tg Fierro ALP [Catalytic activity/Vol] 60 U/L Normal 46-116 [facility] Comment on above: Performed By: #### P T #### [facility] [address] [place] [address] Dr. Tg Fierro ALT [Catalytic activity/Vol] 21 U/L Normal 14-59 [facility] Comment on above: Performed By: #### P T #### [facility] [address] [place] [address] Dr. Tg Fierro Anion gap [Moles/Vol] 15.2 mmol/L Normal [facility] Comment on above: Performed By: #### P T #### [facility] [address] [place] [address] Dr. Tg Fierro AST [Catalytic activity/Vol] 14 U/L Critically low 15-37 [facility] Comment on above: Performed By: #### P T #### [facility] [address] [place] [address] Dr. Tg Fierro Bilirubin [Mass/Vol] 0.4 mg/dL Normal 0.2-1.0 [facility] Comment on above: Performed By: #### P T #### [facility] [address] [place] [address] Dr. Tg Fierro Calcium [Mass/Vol] 9.3 mg/dL Normal 8.5-10.1 [facility] Comment on above: Performed By: #### P T #### [facility] [address] [place] [address] Dr. Tg Fierro Chloride [Moles/Vol] 102 mmol/L Normal 98-107 [facility] Comment on above: Performed By: #### P T #### [facility] [address] [address] [address] Tg Fierro CO2 [Moles/Vol] 26.8 mmol/L Normal 21.0-32.0 [facility] Comment on above: Performed By: #### P T #### [facility] [address] [address] [address] Tg Fierro Creatinine [Mass/Vol] 0.74 mg/dL Normal 0.55-1.02 [facility] Comment on above: Performed By: #### P T #### [facility] [address] [address] [address] Tg Fierro EGFR-AF [place] >60 Normal >=60 [facility] Comment on above: Performed By: #### P T #### [facility] [address] [place] [address] Dr. Tg Fierro EGFR-NON AF [place] >60 Normal >=60 [facility] Comment on above: Performed By: #### P T #### [facility] [address] [place] [address] Dr. Tg Fierro Globulin (S) [Mass/Vol] 3.1 g/dL Normal [facility] Comment on above: Performed By: #### P T #### [facility] [address] [place] [address] Dr. Tg Fierro Glucose [Mass/Vol] 148 mg/dL Critically high 74-106 [facility] Comment on above: Performed By: #### P T #### [facility] [address] [place] [address] Dr. Tg Fierro Potassium [Moles/Vol] 4.0 mmol/L Normal 3.5-5.1 [facility] Comment on above: Performed By: #### P T #### [facility] [address] [place] [address] Dr. Tg Fierro Protein [Mass/Vol] 7.0 g/dL Normal 6.4-8.[address] [facility] Comment on above: Performed By: #### P T #### [facility] [address] [place] [address] Dr. Tg Fierro Sodium [Moles/Vol] 140 mmol/L Normal 136-145 [facility] Comment on above: Performed By: #### P T #### [facility] [address] [place] [address] Dr. Tg Fierro Urea nitrogen [Mass/Vol] 12.0 mg/dL Normal 7.0-18.0 [facility] Comment on above: Performed By: #### P T #### [facility] [address] [place] [address] Dr. Tg Fierro Urea nitrogen/Creatinine [Mass ratio] 16.2 mg/mg Normal [facility] Comment on above: Performed By: #### P T #### [facility] [address] [place] [address] Dr. Tg Fier[facility] 30 mm/hr Normal <=30 [facility] Comment on above: Performed By: #### S EDR #### [facility] [address] [place] [address] Dr. Tg Fierro CBC AUTO DIFFon 04-15-2022 BASO # 0.1 103/ul Normal 0.0-0.1 [facility] Comment on above: Performed By: #### C BC #### [facility] [address] [place] [address] Dr. Tg Fierro Basophils/100 WBC (Bld) 0.6 % Normal 0.2-2.0 [facility] Comment on above: Performed By: #### C BC #### [facility] [address] [place] [address] Dr. Tg Fierro EO # 0.2 103/ul Normal 0.0-0.7 [facility] Comment on above: Performed By: #### C BC #### [facility] [address] [place] [address] Dr. Tg Fierro Eosinophils/100 WBC (Bld) 3.1 % Normal 0.9-7.0 [facility] Comment on above: Performed By: #### C BC #### [facility] [address] [place] [address] Dr. Tg Fierro Erythrocyte distribution width (RBC) [Ratio] 13.6 % Normal 11.0-15.0 [facility] Comment on above: Performed By: #### C BC #### [facility] [address] [place] [address] Dr. Tg Fierro Hematocrit (Bld) [Volume fraction] 42.3 % Normal 36.0-48.0 [facility] Comment on above: Performed By: #### C BC #### [facility] [address] [place] [address] Dr. Tg Fierro Hemoglobin (Bld) [Mass/Vol] 13.2 g/dL Normal 12.0-16.0 [facility] Comment on above: Performed By: #### C BC #### [facility] [address] [place] [address] Dr. Tg Fierro IG # 0.04 10e3/ul Critically high 0.00-0.03 [facility] Comment on above: Performed By: #### C BC #### [facility] [address] [place] [address] Dr. Tg Fierro IG % 0.5 % Normal 0.0-0.5 [facility] Comment on above: Performed By: #### C BC #### [facility] [address] [place] [address] Dr. Tg Fierro LYMPH # 2.5 103/ul Normal 1.2-3.8 [facility] Comment on above: Performed By: #### C BC #### [facility] [address] [place] [address] Dr. Tg Fierro Lymphocytes/100 WBC (Bld) 31.6 % Normal 20.5-60.0 [facility] Comment on above: Performed By: #### C BC #### [facility] [address] [place] [address] Dr. Tg Fierro MANUAL DIFF REQ NO Normal [facility] Comment on above: Performed By: #### C BC #### [facility] [address] [place] [address] Dr. Tg Fierro MCH (RBC) [Entitic mass] 30.3 pg Normal 26.7-34.0 [facility] Comment on above: Performed By: #### C BC #### [facility] [address] [place] [address] Dr. Tg Fierro MCHC (RBC) [Mass/Vol] 31.2 g/dL Normal 29.9-35.2 [facility] Comment on above: Performed By: #### C BC #### [facility] [address] [place] [address] Dr. Tg Fierro MCV (RBC) [Entitic vol] 97.0 fL Normal 81.0-99.0 [facility] Comment on above: Performed By: #### C BC #### [facility] [address] [place] [address] Dr. Tg Fierro MONO # 0.5 103/ul Normal 0.3-0.8 [facility] Comment on above: Performed By: #### C BC #### [facility] [address] [place] [address] Dr. Tg Fierro Monocytes/100 WBC (Bld) 6.3 % Normal 1.7-12.0 [facility] Comment on above: Performed By: #### C BC #### [facility] [address] [place] [address] Dr. Tg Fierro NEUT # 4.5 103/ul Normal 1.4-6.5 [facility] Comment on above: Performed By: #### C BC #### [facility] [address] [place] [address] Dr. Tg Fierro Neutrophils/100 WBC (Bld) 57.9 % Normal 43.0-75.0 [facility] Comment on above: Performed By: #### C BC #### [facility] [address] [place] [address] Dr. Tg Fierro Platelet mean volume (Bld) [Entitic vol] 8.6 fL Critically low 9.5-13.5 [facility] Comment on above: Performed By: #### C BC #### [facility] [address] [place] [address] Dr. Tg Fierro PLT 295 103/ul Normal 150-450 [facility] Comment on above: Performed By: #### C BC #### [facility] [address] [place] [address] Dr. Tg Fierro RBC 4.36 106/ul Normal 4.20-5.40 [facility] Comment on above: Performed By: #### C BC #### [facility] [address] [address] [address] Tg Fierro WBC 7.8 103/ul Normal 4.0-11.0 [facility] Comment on above: Performed By: #### C BC #### [facility] [address] [address] [address] Tg Fierro PROF 14(COMP METB)on 022 Albumin [Mass/Vol] 4.5 g/dL Normal 3.4-5.0 [facility] Comment on above: Performed By: #### C MP #### [facility] [address] [place] [address] Dr. Tg Fierro Albumin/Globulin [Mass ratio] 1.5 {ratio} Normal [facility] Comment on above: Performed By: #### C MP #### [facility] [address] [place] [address] Dr. Tg Fierro ALP [Catalytic activity/Vol] 62 U/L Normal 46-116 [facility] Comment on above: Performed By: #### C MP #### [facility] [address] [place] [address] Dr. Tg Fierro ALT [Catalytic activity/Vol] 25 U/L Normal 14-59 [facility] Comment on above: Performed By: #### C MP #### [facility] [address] [address] [address] Tg Fierro Anion gap [Moles/Vol] 10.6 mmol/L Normal [facility] Comment on above: Performed By: #### C MP #### [facility] [address] [place] [address] Dr. Tg Fierro AST [Catalytic activity/Vol] 12 U/L Critically low 15-37 [facility] Comment on above: Performed By: #### C MP #### [facility] [address] [address] [address] Tg Fierro Bilirubin [Mass/Vol] 0.5 mg/dL Normal 0.2-1.0 [facility] Comment on above: Performed By: #### C MP #### [facility] [address] [address] [address] Tg Fierro Calcium [Mass/Vol] 9.8 mg/dL Normal 8.5-10.1 [facility] Comment on above: Performed By: #### C MP #### [facility] [address] [address] [address] Tg Fierro Chloride [Moles/Vol] 102 mmol/L Normal 98-107 [facility] Comment on above: Performed By: #### C MP #### [facility] [address] [address] [address] Tg Fierro CO2 [Moles/Vol] 31.8 mmol/L Normal 21.0-32.0 [facility] Comment on above: Performed By: #### C MP #### [facility] [address] [address] [address] Tg Fierro Creatinine [Mass/Vol] 0.88 mg/dL Normal 0.55-1.02 [facility] Comment on above: Performed By: #### C MP #### [facility] [address] [address] [address] Tg Fierro EGFR-AF [place] >60 Normal >=60 [facility] Comment on above: Performed By: #### C MP #### [facility] [address] [address] [address] Tg Fierro EGFR-NON AF [place] >60 Normal >=60 [facility] Comment on above: Performed By: #### C MP #### [facility] [address] [address] [address] Tg Fierro Globulin (S) [Mass/Vol] 3.1 g/dL Normal [facility] Comment on above: Performed By: #### C MP #### [facility] [address] [address] [address] Tg Fierro Glucose [Mass/Vol] 187 mg/dL Critically high 74-106 [facility] Comment on above: Performed By: #### C MP #### [facility] [address] [address] [address] Tg Fierro Potassium [Moles/Vol] 4.4 mmol/L Normal 3.5-5.1 [facility] Comment on above: Performed By: #### C MP #### [facility] [address] [address] [address] Tg Fierro Protein [Mass/Vol] 7.6 g/dL Normal 6.4-8.2 [facility] Comment on above: Performed By: #### C MP #### [facility] [address] [place] [address] Dr. Tg Fierro Sodium [Moles/Vol] 140 mmol/L Normal 136-145 [facility] Comment on above: Performed By: #### C MP #### [facility] [address] [place] [address] Dr. Tg Fierro Urea nitrogen [Mass/Vol] 14.0 mg/dL Normal 7.0-18.0 [facility] Comment on above: Performed By: #### C MP #### [facility] [address] [place] [address] Dr. Tg Fierro Urea nitrogen/Creatinine [Mass ratio] 15.9 mg/mg Normal [facility] Comment on above: Performed By: #### C MP #### [facility] [address] [place] [address] Dr. Tg Fierro SED RATE WESTERGRENon 2021 SED RATE 5 mm/hr Normal <=30 [facility] Comment on above: Performed By: #### S EDR #### [facility] [address] [place] [address] Dr. Tg Fierro CBC AUTO DIFFon 02-07-2022 BASO # 0.0 103/ul Normal 0.0-0.1 [facility] Comment on above: Performed By: #### P T #### [facility] [address] [place] [address] Dr. Tg Fierro Basophils/100 WBC (Bld) 0.6 % Normal 0.2-2.0 [facility] Comment on above: Performed By: #### P T #### [facility] [address] [place] [address] Dr. Tg Fierro EO # 0.4 103/ul Normal 0.0-0.7 [facility] Comment on above: Performed By: #### P T #### [facility] [address] [place] [address] Dr. Tg Fierro Eosinophils/100 WBC (Bld) 5.4 % Normal 0.9-7.0 [facility] Comment on above: Performed By: #### P T #### [facility] [address] [place] [address] Dr. Tg Fierro Erythrocyte distribution width (RBC) [Ratio] 13.5 % Normal 11.0-15.0 [facility] Comment on above: Performed By: #### P T #### [facility] [address] [place] [address] Dr. Tg Fierro Hematocrit (Bld) [Volume fraction] 39.4 % Normal 36.0-48.0 [facility] Comment on above: Performed By: #### P T #### [facility] [address] [place] [address] Dr. Tg Fierro Hemoglobin (Bld) [Mass/Vol] 12.8 g/dL Normal 12.0-16.0 [facility] Comment on above: Performed By: #### P T #### [facility] [address] [place] [address] Dr. Tg Fierro IG # 0.02 10e3/ul Normal 0.00-0.03 [facility] Comment on above: Performed By: #### P T #### [facility] [address] [place] [address] Dr. Tg Fierro IG % 0.3 % Normal 0.0-0.5 [facility] Comment on above: Performed By: #### P T #### [facility] [address] [address] [address] Tg Fierro LYMPH # 2.4 103/ul Normal 1.2-3.8 [facility] Comment on above: Performed By: #### P T #### [facility] [address] [place] [address] Dr. Tg Fierro Lymphocytes/100 WBC (Bld) 36.2 % Normal 20.5-60.0 [facility] Comment on above: Performed By: #### P T #### [facility] [address] [place] [address] Dr. Tg Fierro MANUAL DIFF REQ NO Normal [facility] Comment on above: Performed By: #### P T #### [facility] [address] [place] [address] Dr. Tg Fierro MCH (RBC) [Entitic mass] 31.0 pg Normal 26.7-34.0 [facility] Comment on above: Performed By: #### P T #### [facility] [address] [place] [address] Dr. Tg Fierro MCHC (RBC) [Mass/Vol] 32.5 g/dL Normal 29.9-35.2 [facility] Comment on above: Performed By: #### P T #### [facility] [address] [place] [address] Dr. Tg Fierro MCV (RBC) [Entitic vol] 95.4 fL Normal 81.0-99.0 [facility] Comment on above: Performed By: #### P T #### [facility] [address] [place] [address] Dr. Tg Fierro MONO # 0.5 103/ul Normal 0.3-0.8 [facility] Comment on above: Performed By: #### P T #### [facility] [address] [place] [address] Dr. Tg Fierro Monocytes/100 WBC (Bld) 8.0 % Normal 1.7-12.0 [facility] Comment on above: Performed By: #### P T #### [facility] [address] [place], [place] [id number] Dr. Tg Fierro NEUT # 3.3 103/ul Normal 1.4-6.5 [facility] Comment on above: Performed By: #### P T #### [facility] [address] [address] [address] Tg Fierro Neutrophils/100 WBC (Bld) 49.5 % Normal 43.0-75.0 [facility] Comment on above: Performed By: #### P T #### [facility] [address] [place] [address] Dr. Tg Fierro Platelet mean volume (Bld) [Entitic vol] 8.7 fL Critically low 9.5-13.5 [facility] Comment on above: Performed By: #### P T #### [facility] [address] [place] [address] Dr. Tg Fierro PLT 276 103/ul Normal 150-450 [facility] Comment on above: Performed By: #### P T #### [facility] [address] [address] [address] Tg Fierro RBC 4.13 106/ul Critically low 4.20-5.[address] [facility] Comment on above: Performed By: #### P T #### [facility] [address] [place] [address] Dr. Tg Fierro WBC 6.7 103/ul Normal 4.0-11.0 [facility] Comment on above: Performed By: #### P T #### [facility] [address] [place] [address] Dr. Tg Fierro GLYCOHEMOGLOBIN A1Con 2021 ADA RECOMMENDATION SEE BELOW Normal [facility] Comment on above: Result Comment: ADA RECOMMENDED LIMIT 4.0 - 6.0 ADA THERAPEUTIC TARGET < 7.0 ACTION SUGGESTED > 7.0 Performed By: #### A 1C #### [facility] [address] [place] [address] Dr. Tg Fierro Glucose [Mass/Vol] 151 mg/dL Normal [facility] Comment on above: Performed By: #### A 1C #### [facility] [address] [place] [address] Dr. Tg Fierro HbA1c (Bld) [Mass fraction] 6.9 % Critically high 4.5-6.2 [facility] Comment on above: Performed By: #### A 1C #### [facility] [address] [place] [address] Dr. Tg Fierro PROF 14(COMP METB)on 022 Albumin [Mass/Vol] 3.8 g/dL Normal 3.4-5.0 [facility] Comment on above: Performed By: #### P T #### [facility] [address] [place] [address] Dr. Tg Fierro Albumin/Globulin [Mass ratio] 1.3 {ratio} Normal [facility] Comment on above: Performed By: #### P T #### [facility] [address] [place] [address] Dr. Tg Fierro ALP [Catalytic activity/Vol] 43 U/L Critically low 46-116 [facility] Comment on above: Performed By: #### P T #### [facility] [address] [place] [address] Dr. Tg Fierro ALT [Catalytic activity/Vol] 19 U/L Normal 14-59 [facility] Comment on above: Performed By: #### P T #### [facility] [address] [place] [address] Dr. Tg Fierro Anion gap [Moles/Vol] 13.7 mmol/L Normal [facility] Comment on above: Performed By: #### P T #### [facility] [address] [place] [address] Dr. Tg Fierro AST [Catalytic activity/Vol] 11 U/L Critically low 15-37 [facility] Comment on above: Performed By: #### P T #### [facility] [address] [place] [address] Dr. Tg Fierro Bilirubin [Mass/Vol] 0.4 mg/dL Normal 0.2-1.0 [facility] Comment on above: Performed By: #### P T #### [facility] [address] [place], [place] [id number] Dr. Tg Fierro Calcium [Mass/Vol] 9.1 mg/dL Normal 8.5-10.1 [facility] Comment on above: Performed By: #### P T #### [facility] [address] [place] [address] Dr. Tg Fierro Chloride [Moles/Vol] 104 mmol/L Normal 98-107 [facility] Comment on above: Performed By: #### P T #### [facility] [address] [place] [address] Dr. Tg Fierro CO2 [Moles/Vol] 28.5 mmol/L Normal 21.0-32.0 [facility] Comment on above: Performed By: #### P T #### [facility] [address] [place] [address] Dr. Tg Fierro Creatinine [Mass/Vol] 0.77 mg/dL Normal 0.55-1.02 [facility] Comment on above: Performed By: #### P T #### [facility] [address] [place] [address] Dr. Tg Fierro EGFR-AF [place] >60 Normal >=60 [facility] Comment on above: Performed By: #### P T #### [facility] [address] [place] [address] Dr. Tg Fierro EGFR-NON AF [place] >60 Normal >=60 [facility] Comment on above: Performed By: #### P T #### [facility] [address] [place] [address] Dr. Tg Fierro Globulin (S) [Mass/Vol] 3.0 g/dL Normal [facility] Comment on above: Performed By: #### P T #### [facility] [address] [place] [address] Dr. Tg Fierro Glucose [Mass/Vol] 124 mg/dL Critically high 74-106 [facility] Comment on above: Performed By: #### P T #### [facility] [address] [place] [address] Dr. Tg Fierro Potassium [Moles/Vol] 4.2 mmol/L Normal 3.5-5.1 [facility] Comment on above: Performed By: #### P T #### [facility] [address] [address] [address] Tg Fierro Protein [Mass/Vol] 6.8 g/dL Normal 6.4-8.2 [facility] Comment on above: Performed By: #### P T #### [facility] [address] [address] [address] Tg Fierro Sodium [Moles/Vol] 142 mmol/L Normal 136-145 [facility] Comment on above: Performed By: #### P T #### [facility] [address] [address] [address] Tg Fierro Urea nitrogen [Mass/Vol] 12.0 mg/dL Normal 7.0-18.0 [facility] Comment on above: Performed By: #### P T #### [facility] [address] [address] [address] Tg Fierro Urea nitrogen/Creatinine [Mass ratio] 15.6 mg/mg Normal [facility] Comment on above: Performed By: #### P T #### [facility] [address] [address] [address] Tg Fierro SED RATE [facility] 2021 SED RATE 8 mm/hr Normal <=30 [facility] Comment on above: Performed By: #### C MP #### [facility] [address] [place] [address] Dr. Tg Fierro COVID Quick Testingon 2020 Result Positive [facility] Other Vital Signs Date Time Vital Sign Value Performing Clinician Facility 07-25-2023 09:20-0500 Body height 160.02 cm Lou Glover Other [facility] Other 07-25-2023 09:20-0500 Body mass index (BMI) [Ratio] 23.91 kg/m2 Lou Glover Other [facility] 07-25-2023 09:20-0500 Body temperature 97.7 [degF] Lou Glover Other [facility] Other 07-25-2023 09:20-0500 Body weight 61.24 kg Lou Glover Other [facility] Other 07-25-2023 09:20-0500 Diastolic blood pressure 74 mm[Hg] Lou Glover Other [facility] Other 07-25-2023 09:20-0500 Respiratory rate 18 /min Lou Glover Other [facility] Other 07-25-2023 09:20-0500 SaO2% (BldA) [Mass fraction] 96 % Lou Glover Other [facility] Other 07-25-2023 09:20-0500 Systolic blood pressure 120 mm[Hg] Lou Glover Other [facility] Other 03-26-2023 13:15-0400 Body height 160.02 cm MD Jayme Perez Work Phone: [facility] 03-26-2023 13:15-0400 Body temperature 98.2 [degF] MD Jayme Perez Work Phone: [facility] 03-26-2023 13:15-0400 Body weight 66 kg MD Jayme Perez Work Phone: [facility] 03-26-2023 13:15-0400 Diastolic blood pressure 71 mm[Hg] MD Jayme Perez Work Phone: [facility] 03-26-2023 13:15-0400 Heart rate 87 /min MD Jayme Perez Work Phone: [facility] 03-26-2023 13:15-0400 Respiratory rate 16 /min MD Jayme Perez Work Phone: [facility] 03-26-2023 13:15-0400 SaO2% (BldA) [Mass fraction] 97 % MD Jayme Perez Work Phone: [facility] 03-26-2023 13:15-0400 Systolic blood pressure 117 mm[Hg] MD Jayme Perez Work Phone: [facility] 05-21-2021 13:15-0500 Body height 160.02 cm Astrid Ryanault Other [facility] Other 05-21-2021 13:15-0500 Body mass index (BMI) [Ratio] 23.91 kg/m2 Astrid Olivia Other [facility] Other 05-21-2021 13:15-0500 Body temperature 97.3 [degF] Astrid Ryanault Other [facility] Other 05-21-2021 13:15-0500 Body weight 61.24 kg Astrid Ryanault Other [facility] Other 05-21-2021 13:15-0500 SaO2% (BldA) [Mass fraction] 94 % Astrid Olivia Other [facility] Other Encounters Encounter Date Encounter Type Care Provider Facility Start: 07-30-2023 End: 07-30-2023 ambulatory JAYME PEREZ Not Available Start: 07-25-2023 End: 07-25-2023 ambulatory Lou Glover Other [facility] Other Start: 07-25-2023 Office outpatient visit 25 minutes Lou Glover [facility] Start: 07-10-2023 End: 07-10-2023 ambulatory FELICIAERIC GILLESPIEER Not Available Start: 07-02-2023 End: 07-02-2023 ambulatory FELICIAZULEIMA HITCHCOCKHLER Not Available Start: 06-25-2023 End: 06-25-2023 ambulatory FELICIA HITCHCOCKHLER Not Available Start: 06-18-2023 End: 06-18-2023 ambulatory FELICIA D CORETTAHLER Not Available Start: 04-07-2023 End: 04-07-2023 Departed Referred MD Jayme Perez Work Phone: [facility] Start: 04-07-2023 End: 04-08-2023 ambulatory Williams SHEPHERD Facility:[facility] Start: 03-26-2023 End: 03-26-2023 ambulatory Williams Shepherd Facility:[facility] Start: 03-26-2023 End: 03-26-2023 Patient encounter procedure MD Jayme Perez Work Phone: [facility] Work Phone: Start: 03-20-2023 End: 03-21-2023 ambulatory Williams SHEPHERD [facility] Start: 03-20-2023 End: 03-20-2023 Lab Drop off Williams SHEPHERD [facility] Start: 03-20-2023 End: 03-20-2023 Patient encounter procedure Williams SHEPHERD [facility] Start: 02-03-2023 End: 02-04-2023 ambulatory Williams SHEPHERD [...] Start: 08-09-2022 End: 08-10-[address] JAYME PERZE . Facility:[facility] Start: 08-05-2022 End: 08-06-[address] RADAMES MONTEIRO Facility:[facility] Start: 04-15-2022 End: 04-16-[address] RADAMES MONTEIRO Facility:[facility] Start: 02-20-2022 End: 02-21-[address] RADAMES MONTEIRO Facility:[facility] Start: 02-07-2022 End: 02-08-[address] JAYME PEREZ . Facility:[facility] Start: 05-21-2021 End: 05-21-2021 ambulatory Astrid Baker Other [facility] Other Start: 05-21-2021 Office outpatient visit 15 minutes Astrid Baker [facility] Procedures Date Procedure Procedure Detail Performing Clinician Start: 08-26-2019 Extracorporeal shock wave lithotripsy of calculus of kidney Williams Matchpin Start: 04-12-2016 Cystoscopic laser lithotripsy of ureteric calculus Williams Matchpin Start: 03-28-2016 Cystoscopic removal of ureteric stent Williams Matchpin Start: 02-15-2016 Extracorporeal shock wave lithotripsy of calculus of kidney Williams SHEPHERD Start: 01-16-2016 Endoscopic retrograd e pyelogram Williams Matchpin Start: 06-29-2013 Extracorporeal shock wave lithotripsy of calculus of kidney Williams SHEPHERD Start: 09-10-2010 Cystoscopic removal of ureteric stent Williams Matchpin Start: 08-29-2010 Extracorporeal shock wave lithotripsy of calculus of kidney [facility] Start: 08-23-2010 Cystoscopic insertio n of ureteric stent [facility] Start: 03-02-2008 Endoscopic retrograd e pyelogram [facility] Start: 10-16-2004 Cystoscopic anastomo sis of ureter to bladder with insertion of stent into ureter [facility] Plan of Treatment Date Care Activity Detail Author Start: 07-12-2024 ambulatory Ambulatory Facility:[facility] Start: 04-07-2023 Abdomen endoscopy OR Cysto/Retro/Stent/Stone/H olmium Laser (Right) [facility] Immunizations Immunization Date Immunization Notes Care Provider Yaya oswald NEGATED: Highlighted row has not occurred!09-21-2019 influenza virus vaccine, live, attenuated, for intranasal use [facility] NEGATED: Highlighted row has not occurred!08-20-2019 influenza virus vaccine, live, attenuated, for intranasal use [employer] Payers Date Payer Category Payer Self-pay [id number] 2022 Medicare [id number] 1958 Medicare [id number] 2.1 [id number]. 1959 Unknown [id number] 1946 Unknown [id number] 2.16.84 0.1.509768.3.579.2.593 1946 Unknown [id number] 2.16.84 0.1.336518.3.579.2.593 1946 Unknown [id number] 2.16.84 0.1.350197.3.579.2.593 1946 Unknown [id number] 2.16.84 0.1.787850.3.579.2.593 1946 Unknown [id number] 2.16.84 0.1.270292.3.579.2.593 1946 Unknown [id number] 2.16.84 0.1.131942.3.579.2.593 1946 Unknown [id number] 2.16.84 0.1.471816.3.579.2.593 1946 Unknown [id number] 2.16.84 0.1.523891.3.579.2.593 1946 Unknown [id number] 2.16.84 0.1.532794.3.579.2.593 1946 Unknown [id number] 2.16.84 0.1.107318.3.579.2.593 1946 Unknown [id number] 2.16.84 0.1.297817.3.579.2.593 1946 Unknown [id number] 2.16.84 0.1.011836.3.579.2.593 1946 Unknown [id number] 2.16.84 0.1.600202.3.579.2.593 1946 Unknown [id number] 2.16.8 40.1.898340.3.579.2.727 1946 Unknown [id number] 2.16.8 40.1.653221.3.579.2.727 1946 Unknown [id number] 2.16.8 40.1.116885.3.579.2.727 1946 Unknown [id number] 2.16.8 40.1.688359.3.579.2.727 1946 Unknown [id number] 2.16.84 0.1.075909.3.579.2.1259 1946 Unknown [id number] 2.16.840 .1.989957.3.579.2.1259 1946 Unknown [id number] 2.16.840 .1.060530.3.579.2.1259 1946 Unknown [id number] 2.16.840 .1.716432.3.579.2.1259 1946 Unknown [id number] 2.16.840 .1.871113.3.579.2.1259 Unknown [id number] 2.16.8 40.1.922497.3.579.2.531 Unknown [id number] 2.16.8 40.1.759761.3.579.2.531 Social History Date Type Detail Facility Sex Assigned At [facility] Other Start: 02-03-2023 End: 03-26-2023 Tobacco smoking status Ex-smoker (finding) [facility] Tobacco smoking status Never [facility] Sex Assigned At Female [facility] Start: 1945 Sex Assigned At Female [facility] Clinical Notes 02-21-2022 to 07-25-2023 Note [...] care as directed rx of steroid and [place], cool mist humidification. May use Tylenol as directed. Immediate eval for signs of respiratory distress, difficulty breathing poor PO intake, signs of dehydration, fever, or other concerning symptoms. Otherwise, follow up with PCP in 2-3 days. Patient verbalizes understanding and is agreeable to treatment plan. Patient sent home in stable condition. [facility] Other 08-11-2022 NotePROCEDURE: XR FOOT LT MIN 3 VIEWS COMPARISON: None. HISTORY: Pain in left foot FINDINGS: BONES:No acute fracture or dislocation. Mild enthesopathic spurring of the calcaneus. SOFT TISSUES:Negative. No visible soft tissue swelling. EFFUSION:None visible. OTHER: Negative. IMPRESSION: Mild enthesopathic spurring of the calcaneus Electronically authenticated by: BLANCA ZAVALA Date: 2022-02-21 [facility] App[facility]ments Appointment Date:07/12/2024 10:45:00 AM Scheduled Provider:Williams SHEPHERD MD Location:[facility] Appointment Type:URO Office Visit [facility] Evaluation + Plan note Future Appointments Appointment Date:07/12/2024 10:45:00 AM Scheduled Provider:Williams SHEPHERD MD Location:[facility] Appointment Type:URO Office Visit Diagnostic Tests Pending * Calculi Analysis [facility]20[facility] Other Evaluation noteNo assessment information available [facility] Work Phone: [facility] Other History general Narrative - Reported* Type Description Date Medical History Arthritis Medical History diabetes mallitus Surgical History cataract surgery [facility] Other Hospital course Narrative No data available for this section [facility] Discharge instructions No data available for this section [facility] Progress note No data available for this section [facility] Summary Purpose Family History No Family History [...] AUTHOR AUTHOR'S ORGANIZ ATION 04/15/2023 [facility] DATE CREATED AUTHOR AUTHOR'S ORGANIZ ATION 06/09/2023 [facility] DATE CREATED AUTHOR AUTHOR'S ORGANIZ ATION 07/31/2023 [facility] EPIC Patient Care team informatio n (unrecognized section and content) Team Status: Active Member Role Status Dates Jayme Perze MD Primary Care Provider Active Team Status: [...] BE BASED ON THE PRIMARY CLINICAL RECORDS. [employer] [facility]. provides no warranty or guarantee of the accuracy or completeness of information in this document.
[2023-08-05 12:28] LABS: INR 3.67; Prothrombin Time 36.1 sec (9.0-11.6)
== END 2023-08-05 11:25 | disposition home or self-care (01) ==
LOC: LAB 11:26
PROVIDERS: PCP Family Medicine; Visit Provider Family Medicine
DX: I48.0 Paroxysmal atrial fibrillation (principal); Z79.01 Long term (current) use of anticoagulants; Z51.81 Encounter for therapeutic drug level monitoring; L40.59 Other psoriatic arthropathy; Z79.899 Other long term (current) drug therapy
CPT/HCPCS: 36415; 85610

== ENCOUNTER 2023-08-12 12:30 | Emergency (ER) | payer MEDICARE, SELFPAY ==
[2023-08-12 12:32] VITALS: BP 160/66; PULSE 82; RESP 18; TEMP 36.6; O2SAT 100; BMI 22.7
--- OUTSIDE RECORDS SUMMARY | 2023-08-12 12:35 | XMS_ITS | CCD ---
Author Name Unknown Address [address] [place] [address] Organization [facility] Care Team Providers Care Sales Estimator Name Role Phone Astrid Baker Unavailable CAYETANO, [...] ., DR MCKINNEY Consulting Unavailable HEMEYER ., EDINA Admitting Unavailable HEMEYER ., DR MCKINNEY Attending Unavailable HEMEYER ., EDINA Primary Care Unavailable HEMEYER, JAYME J Primary Care Physician Unavail able Williams SHEPHERD Attending Unavailable Williams SHEPHERD Attending Unavailable Williams SHEPHERD Admitting Unavailable Williams SHEPHERD Attending Unavailable Williams SHEPHERD Attending Unavailable Williams SHEPHERD Attending Unavailable MD Jayme Perez Primary Care Provider MD Williams Shepherd Attending Provider [phone] Williams Shepherd Admitting Unavailable Williams Shepherd Attending Unavailable Jayme Perez Primary Care Unavailable Williams Shepherd Attending Unavailable Hemetomás, Jayme Hazel Primary Care Unavailable Williams Shepherd Admitting Unavailable Lou Glover Unavailable FELICIA THORNTON Attending Unavailable JAYME PEREZ Attending Unavailable HEMETOMÁS, JAYME Hazel Attending Unavailable FELICIA THORNTON Attending Unavailable FELICIA THORNTON Attending Unavailable FELICIA THORNTON Attending Unavailable Allergies Allergy Classification Reported Allergen(s) Allergy Type Date of Onset Reaction(s) Facility (6 sources) Ciprofloxacin; 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: [ciprofloxacin] Drug Allergy 03-26-20 23 anaphylaxis, Unknown (qualifier value) [facility] (1 source) sulfaSALAzine Drug Allergy rash [facility] Other (1 source) Ciprofloxacin Drug Allergy 03-30-20 13 [facility] (2 sources) Ketorolac; 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: [Toradol] Drug Allergy 03-30-20 13 [facility] (1 source) metroNIDAZOLE Drug Allergy 03-30-20 13 [facility] (1 source) NSAIDs Drug allergy (disorder) 03-30-20 13 [facility] (1 source) pioglitazone Drug Allergy 03-30-20 13 [facility] (1 source) Sulfonamides (Antibiotic) Drug allergy (disorder) 03-30-20 13 [facility] (6 sources) Ketorolac; 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: [ketorolac] Drug Allergy 03-26-20 Unknown (qualifier value), Nausea (finding) [facility] Comment on above: Severe (5 sources) Latex; 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: [Latex] Drug allergy 03-26-20 Blister of skin AND/OR mucosa (finding) [facility] (3 sources) Non-steroidal anti-inflammatory agent; 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: [NSAIDs] Drug allergy Unknown (qualifier value) [facility] (4 sources) pioglitazone; 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: [pioglitazone] Drug Allergy 03-26-20 Unknown (qualifier value) [facility] (3 sources) Sulfonamides (Antibiotic); 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: [sulfa drugs] Drug allergy Unknown (qualifier value) [facility] (2 sources) metroNIDAZOLE; 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: [metronidazole] Drug Allergy 03-26-20 Redness of Skin [facility] (2 sources) Sulfonamides (Antibiotic); 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: [Sulfa (Sulfonamide Antibiotics)] Allergy to substance 03-26-20 Rash [facility] (2 sources) NSAIDS (Non-Steroidal Anti-Inflamma; 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: [NSAIDS (Non-Steroidal Anti-Inflamma] Allergy to substance 03-26-20 Anaphylaxis [facility] (1 source) Ciprofloxacin Drug Allergy 03-26-20 [facility] (1 source) Ketorolac Drug Allergy 03-26-20 [facility] (1 source) pioglitazone Drug Allergy 03-26-20 [facility] (1 source) Non-steroidal anti-inflammatory agent Drug allergy rash [facility] Other (1 source) Substance with sulfonamide structure and antibacterial mechanism of action (substance) Drug allergy rash [facility] Other Medications Current Medications Medication Drug Class(es) [...] Oral, q6hr Start Date: 02/03/23 Status: Ordered [id number] 200 actuat albuter ol 0.09 mg/actuat metered [...] Date: 09/19/20 Status: Ordered Cyanocobalamin-Liver Extract (Vitamin V44-Dpyzk) Tablet (1 source) Start: 03-26-2023 take 1 tablet by mouth once daily Cyanocobalamin-Live r Extract (Vitamin K02-Vuhue) Tablet Active 1 TAB PO every day at noon March 25, 2023 11:00pm dextromethorphan hydrobromide 1.5 mg/ml / pyrilamine maleate 1.5 mg/ml oral solution (1 source) Uncompetitive W-bdhuyr-Q-asparta te Receptor Antagonist, Sigma-1 Agonist Start: 07-25-2023 take 10 mL by mouth every eight hours Henderson DM 7.5-7.5 MG/5ML 10 mL Orally every [...] disorder 08-17-2019 Chronic Other aftercare (1 source) 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; 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: [CLOTH CARRIER CURRNT USE ANTICOAGULANTS] Onset: 12-11-2022 Episodic Other aftercare (5 sources) Encounter for therapeutic drug level monitoring; 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: [ENC THERAPEUTC DRUG LEVL MONITORING] Onset: 10-18-2022 Episodic Other aftercare (1 source) Other terminal gauger (current) drug therapy; 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: [OTH GROUP HOME CURRENT DRUG THERAPY] Onset: 10-31-2022 Episodic Other [...] Resolved: 05-21-2021 Episodic Other aftercare (1 source) longterm (current) use of oral hypoglycemic drugs; 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: [GROUP HOME USE ORAL HYPOGLYCEMIC DX] Onset: 08-12-2022 Episodic Other aftercare (1 source) longterm (current) use of insulin; 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: [GROUP HOME CURRENT USE OF INSULIN] Onset: 02-13-2022 Episodic Other connective tissue disease (4 sources) Pain in left foot; 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: [PAIN IN LEFT FOOT] Onset: 08-10-2022 Episodic Pneumonia (except that caused by tuberculosis or sexually transmitted disease) (1 source) Pneumonia, unspecified organism Onset: 05-21-2021 Resolved: 05-21-2021 Episodic Unclassified (1 source) Unclassified (1 source) Contact with and (suspected) exposure to covid-19 Z20.822 Viral infection (1 source) COVID-19 Onset: 05-21-2021 Resolved: 05-21-2021 Results Test Name Value Interpretation Reference Range Facility COVID/FLU/RSV RT-PCRon 07-25 SARS-CoV-2 (COVID-19) RNA TREASURE+probe Ql (Unsp spec) Negative Located Within [facility] [employer] Other COVID/FLU/RSV RT-PCR Negative [facility] Other COVID/FLU/RSV RT-PCR Positive [facility] Other Calculus Analysison 03-27-20 23 Calcium oxalate dihydrate Infrared spectroscopy (Stone) [Mass fraction] 100 % Invalid Interpretation Code [facility] Comment on above: Performed By: #### 1 [id number] #### [facility] [address] [place] [address] Color (Stone) Roper Invalid Interpretation Code [facility] Comment on above: Performed By: #### 1 [id number] #### [facility] [address] [place] [address] Composition Comment Invalid Interpretation Code [facility] Comment on above: Result Comment: Perc entage (Represents the % composition) Performed By: #### 1 [id number] #### [facility] [address] [place] [address] Disclaimer: Comment Invalid Interpretation Code [facility] Comment on above: Result Comment: This test was developed and its performance characteristics determined by [employer]. It has not been cleared or approved by the Food and Drug Administration. Performed at: [address] [id number] PhD Silvestre Esquivel Performed By: #### 1 [id number] #### [facility] [address] [place] [address] Laboratory comment Noam (Report) Comment Invalid Interpretation Code [facility] Comment on above: Result Comment: Coco goode questions regarding Calculi Analysis contact [facility] at: [phone]. Performed By: #### 1 [id number] #### [facility] [address] [place] [address] Please Note: Comment Invalid Interpretation Code [facility] Comment on above: Result Comment: Calc javier report will follow via computer, mail or pin inserter regulator delivery. Performed By: #### 1 [id number] #### [facility] [address] [place] [address] Size (Stone) [Entitic vol] 6x4 Invalid Interpretation Code [facility] Comment on above: Result Comment: Sing le piece received. Performed By: #### 1 [id number] #### [facility] [address] [place] [address] Specimen source subject Nom Comment Invalid Interpretation Code [facility] Comment on above: Result Comment: Not provided Performed By: #### 1 [id number] #### [facility] [address] [place] [address] Stone Photo Comment Invalid Interpretation Code [facility] Comment on above: Result Comment: Phot ograph will follow under a separate cover Performed By: #### 1 [id number] #### [facility] [address] [place] [address] Weight (Stone) 49 mg Invalid Interpretation Code [facility] Comment on above: Performed By: #### 1 [id number] #### [facility] [address] [place] [address] Lab Reportson 03-27-2023 Lab Reports [id number]:127 Normal [facility] Activated partial thrombopla stin time (aPTT) in platelet poor plasma by coagulation aOrdered By: Williams Shepherd on 03-26-2023 aPTT Coag (PPP) [Time] 35.9 s 25.1-36.[address] [facility] Comment on above: A hematocrit value g reater than 55% may lead to inaccurate results in coagulation testing. Patients having hematocrit values >55% require a special collection tube for coagulation studies. Please contact the laboratory at [phone] for redraw instructions. Basic Metabolic Panelon 03-14 Anion gap [Moles/Vol] 13.0 mmol/L Normal 6.0-15.[address] [facility] Comment on above: Performed By: #### P T, BMP, CBC, PTT #### [address] Calcium [Mass/Vol] 10.0 mg/dL Normal 8.6-10.3 [facility] Comment on above: Result Comment: PERF ORMED BY: [place] [address] PATHOLOGIST WAFER LINE WORKER BERNIE GRAYSON M.D. Performed By: #### P T, BMP, CBC, PTT #### [address] Chloride [Moles/Vol] 104 mmol/L Normal 98-107 [facility] Comment on above: Performed By: #### P T, BMP, CBC, PTT #### [address] CO2 [Moles/Vol] 30.0 mmol/L Normal 21.0-31.0 [facility] Comment on above: Performed By: #### P T, BMP, CBC, PTT #### [address] Creatinine [Mass/Vol] 0.85 mg/dL Normal 0.60-1.20 [facility] Comment on above: Performed By: #### P T, BMP, CBC, PTT #### [place] [address] [place] GFR/1.73 sq M.predicted MDRD (S/P/Bld) [Vol rate/Area] mL/min/{1.73_m2} Normal [facility] Comment on above: Performed By: #### P T, BMP, CBC, PTT #### [address] [place] [address] [place] Glucose [Mass/Vol] 111 mg/dL High 70-100 [facility] Comment on above: Result Comment: [facility] Glucose Reference Range is dependent on time and content of last meal. Glucose of more than 200 mg/dL in a nonstressed, ambulatory subject supports the diagnosis of Diabetes Mellitus. ADA recommended reference range Performed By: #### P T, BMP, CBC, PTT #### [facility] [address] Potassium [Moles/Vol] 5.0 mmol/L Normal 3.5-5.1 [facility] Comment on above: Performed By: #### P T, BMP, CBC, PTT #### [facility] [address] Sodium [Moles/Vol] 142 mmol/L Normal 136-145 [facility] Comment on above: Performed By: #### P T, BMP, CBC, PTT #### [facility] [address] Urea nitrogen [Mass/Vol] 12 mg/dL Normal 7-25 [facility] Comment on above: Performed By: #### P T, BMP, CBC, PTT #### [facility] [address] Basophils Auto (Bld) [#/Vol] Ordered By: Williams Shepherd on 03-26-2023 Basophils (Bld) [#/Vol] 0.0 10*3/uL 0.0-0.2 [facility] Basophils/100 WBC Auto (Bld) Ordered By: Williams Shepherd on 03-26-2023 Basophils/100 WBC (Bld) 0.8 % . [facility] Calcium [Mass/volume] in Ser um or PlasmaOrdered By: Williams Shepherd on 03-26-2023 Calcium [Mass/Vol] 10.0 mg/dL 8.6-10.3 [facility] Carbon dioxide, total [Moles /volume] in Serum or PlasmaOrdered By: Williams hSepherd on 03-26-2023 CO2 [Moles/Vol] 30.0 mmol/L 21.0-31.0 [facility] Chloride [Moles/volume] in S fartun or PlasmaOrdered By: Williams Shepherd on 03-26-2023 Chloride [Moles/Vol] 104 mmol/L 98-107 [facility] Complete Blood Count Auto Di ffon 03-26-2023 Basophils (Bld) [#/Vol] 0.0 10*3/uL Normal 0.0-0.2 [facility] Comment on above: Result Comment: PERF ORMED BY: [place] [address] PATHOLOGIST WAFER LINE WORKER BERNIE GRAYSON M.D. Performed By: #### P T, BMP, CBC, PTT #### [facility] [address] [place] [address] Basophils/100 WBC (Bld) 0.8 % Normal . [facility] Comment on above: Performed By: #### P T, BMP, CBC, PTT #### [facility] [address] [place] [address] Eosinophils (Bld) [#/Vol] 0.3 10*3/uL Normal 0.0-0.45 [facility] Comment on above: Performed By: #### P T, BMP, CBC, PTT #### [address] Eosinophils/100 WBC (Bld) 4.3 % Normal . [facility] Comment on above: Performed By: #### P T, BMP, CBC, PTT #### [facility] [address] [place] [address] Erythrocyte distribution width (RBC) [Ratio] 14.8 % Normal 11.9-15.3 [facility] Comment on above: Performed By: #### P T, BMP, CBC, PTT #### [facility] [address] [place] [address] Hematocrit (Bld) [Volume fraction] 40.3 % Normal 34.0-46.4 [facility] Comment on above: Performed By: #### P T, BMP, CBC, PTT #### [facility] [address] [place] [address] [place] Hemoglobin (Bld) [Mass/Vol] 13.3 g/dL Normal 11.8-15.4 [facility] Comment on above: Performed By: #### P T, BMP, CBC, PTT #### [address] Lymphocytes (Bld) [#/Vol] 2.2 10*3/uL Normal 1.00-4.8 [facility] Comment on above: Performed By: #### P T, BMP, CBC, PTT #### [address] Lymphocytes/100 WBC (Bld) 36.9 % Normal . [facility] Comment on above: Performed By: #### P T, BMP, CBC, PTT #### [address] MCH (RBC) [Entitic mass] 31.1 pg Normal 24.7-34.3 [facility] Comment on above: Performed By: #### P T, BMP, CBC, PTT #### [address] MCV (RBC) [Entitic vol] 94.4 fL Normal 80-100 [facility] Comment on above: Performed By: #### P T, BMP, CBC, PTT #### [address] Mean Corpuscular HGB Conc 32.9 g/dL Normal 32.0-35.0 [facility] Comment on above: Performed By: #### P T, BMP, CBC, PTT #### [place] [address] [place] Monocytes (Bld) [#/Vol] 0.5 10*3/uL Normal 0.0-0.8 [facility] Comment on above: Performed By: #### P T, BMP, CBC, PTT #### [place] [address] [place] Monocytes/100 WBC (Bld) 7.8 % Normal . [facility] Comment on above: Performed By: #### P T, BMP, CBC, PTT #### [facility] [address] [place] [address] [place] Neutrophils (Bld) [#/Vol] 3.0 10*3/uL Normal 1.8-7.7 [facility] Comment on above: Performed By: #### P T, BMP, CBC, PTT #### [facility] [address] [place] [address] Neutrophils/100 WBC (Bld) 50.2 % Normal . [facility] Comment on above: Performed By: #### P T, BMP, CBC, PTT #### [facility] [address] [place] [address] NRBC% 0.3 /100{WBC} Normal 0-0.5 [facility] Comment on above: Performed By: #### P T, BMP, CBC, PTT #### [facility] [address] [place] [address] Platelet mean volume (Bld) [Entitic vol] 7.1 fL Normal 6.3-10.7 [facility] Comment on above: Performed By: #### P T, BMP, CBC, PTT #### [place] [address] [place] Platelets (Bld) [#/Vol] 363 10*3/uL Normal 150-450 [facility] Comment on above: Performed By: #### P T, BMP, CBC, PTT #### [address] RBC (Bld) [#/Vol] 4.27 10*6/uL Normal 3.60-5.00 [facility] Comment on above: Performed By: #### P T, BMP, CBC, PTT #### [place] [address] [place] WBC (Bld) [#/Vol] 5.9 10*3/uL Normal 3.8-11.6 [facility] Comment on above: Performed By: #### P T, BMP, CBC, PTT #### [place] [address] [place] Creatinine [Mass/volume] in Serum or PlasmaOrdered By: Williams Shepherd on 03-26-2023 Creatinine [Mass/Vol] 0.85 mg/dL 0.60-1.20 [facility] ECG 12 lead ECGon 03-26-2023 ECG 12 lead ECG [facility] [address] [place] [id number] Electrocardiograph Report Signed Patient: Wilda Sen MR#: [id number] 8 : 1945 Acct:[id number] Age/Sex: 77 / F ADM Date: 03/26/23 Loc: PS Room: Type: [facility] Attending Dr: Williams Shepherd MD Ordering [...] CHAD Signed By Maru Whitehead DO 03/26 1908 Normal [facility] Eosinophils Auto (Bld) [#/Vo l]Ordered By: Williams Shepherd on 03-26-2023 Eosinophils (Bld) [#/Vol] 0.3 10*3/uL 0.0-0.45 [facility] Eosinophils/100 WBC Auto (Bl d)Ordered By: Williams Shepherd on 03-26-2023 Eosinophils/100 WBC (Bld) 4.3 % . [facility] Erythrocyte distribution wid th Auto (RBC) [Ratio]Ordered By: Williams Shepherd on 03-26-2023 Erythrocyte distribution width (RBC) [Ratio] 14.8 % 11.9-15.3 [facility] Glucose [Mass/volume] in Ser um or PlasmaOrdered By: Williams Shepherd on 03-26-2023 Glucose [Mass/Vol] 111 mg/dL 70-100 [facility] Comment on above: ADA recommended refe rence rangeRandom Glucose Reference Range is dependent on time and content of last meal. Glucose of more than 200 mg/dL in a nonstressed, ambulatory subject supports the diagnosis of Diabetes Mellitus. Hematocrit Auto (Bld) [Volum e fraction]Ordered By: Williams Shepherd on 03-26-2023 Hematocrit (Bld) [Volume fraction] 40.3 % 34.0-46.4 [facility] Hemoglobin [Mass/volume] in BloodOrdered By: Williams Shepherd on 03-26-2023 Hemoglobin (Bld) [Mass/Vol] 13.3 g/dL 11.8-15.4 [facility] INR in Platelet poor plasma by Coagulation assayOrdered By: Williams Shepherd on 03-26-2023 INR Coag (PPP) [Relative time] 2.3 {INR} [facility] Comment on above: INR Therapeutic Rang [...] RBC Auto (Bld) [#/Vol] 5.9 10*3/uL 3.8-11.6 [facility] Lymphocytes Auto (Bld) [#/Vo l]Ordered By: Williams Shepherd on 03-26-2023 Lymphocytes (Bld) [#/Vol] 2.2 10*3/uL 1.00-4.8 [facility] Lymphocytes/100 WBC Auto (Bl d)Ordered By: Williams Shepherd on 03-26-2023 Lymphocytes/100 WBC (Bld) 36.9 % . [facility] MCH Auto (RBC) [Entitic mass ]Ordered By: Williams Shepherd on 03-26-2023 MCH (RBC) [Entitic mass] 31.1 pg 24.7-34.3 [facility] MCHC Auto (RBC) [Mass/Vol]Or dered By: Williams Shepherd on 03-26-2023 MCHC (RBC) [Mass/Vol] 32.9 g/dL 32.0-35.0 [facility] MCV Auto (RBC) [Entitic vol] Ordered By: Williams Shepherd on 03-26-2023 MCV (RBC) [Entitic vol] 94.4 fL 80-100 [facility] Monocytes Auto (Bld) [#/Vol] Ordered By: Williams Shepherd on 03-26-2023 Monocytes (Bld) [#/Vol] 0.5 10*3/uL 0.0-0.8 [facility] Monocytes/100 WBC Auto (Bld) Ordered By: Williams Shepherd on 03-26-2023 Monocytes/100 WBC (Bld) 7.8 % . [facility] Neutrophils Auto (Bld) [#/Vo l]Ordered By: Williams Shepherd on 03-26-2023 Neutrophils (Bld) [#/Vol] 3.0 10*3/uL 1.8-7.7 [facility] Neutrophils/100 WBC Auto (Bl d)Ordered By: Williams Shepherd on 03-26-2023 Neutrophils/100 WBC (Bld) 50.2 % . [facility] No Panel InformationOrdered By: Williams Shepherd on 03-26-2023 Estimated GFR (CKD-EPI) > 60.0 mL/Min [facility] Creatinine Clearance (Chem N/A [facility] Nucleated erythrocytes [Pres ence] in Blood by Automated countOrdered By: Williams Shepherd on 03-26-2023 Nucleated RBC Auto Ql (Bld) 0.3 /100{WBC} 0-0.5 [facility] Partial Thromboplastin Timeo n 03-26-2023 aPTT Coag (Bld) [Time] 35.9 s Normal 25.1-36.[address] [facility] Comment on above: Result Comment: A he matocrit value greater than 55% may lead to inaccurate results in coagulation testing. Patients having hematocrit values >55% require a special collection tube for coagulation studies. Please contact the laboratory at [phone] for redraw instructions. PERFORMED BY: [place] [id number] PATHOLOGIST WAFER LINE WORKER BERNIE GRAYSON M.D. Performed By: #### P T, BMP, CBC, PTT #### [facility] [address] [place] [address] [facility] Platelet mean volume Auto (B ld) [Entitic vol]Ordered By: Williams Shepherd on 03-26-2023 Platelet mean volume (Bld) [Entitic vol] 7.1 fL 6.3-10.7 [facility] Platelets Auto (Bld) [#/Vol] Ordered By: Williams Shepherd on 03-26-2023 Platelets (Bld) [#/Vol] 363 10*3/uL 150-450 [facility] Potassium [Moles/volume] in Serum or PlasmaOrdered By: Williams Shepherd on 03-26-2023 Potassium [Moles/Vol] 5.0 mmol/L 3.5-5.1 [facility] Prothrombin Time INRon 03-26 INR Coag (PPP) [Relative time] 2.3 {INR} Normal [facility] Comment on above: Result Comment: INR [...] #### P T, BMP, CBC, PTT #### [facility] [address] [place], [place] [id number] [facility] PT Coag (PPP) [Time] 26.6 s High 9.0-12.9 [facility] Comment on above: Result Comment: A he matocrit value greater than 55% may lead to inaccurate results in coagulation testing. Patients having hematocrit values >55% require a special collection tube for coagulation studies. Please contact the laboratory at [phone] for redraw instructions. Performed By: #### P T, BMP, CBC, PTT #### [facility] [address] [place], [place] [id number] [facility] Prothrombin time (PT)Ordered By: Williams Shepherd on 03-26-2023 PT Coag (PPP) [Time] 26.6 s 9.0-12.9 [facility] Comment on above: A hematocrit value g reater than 55% may lead to inaccurate results in coagulation testing. Patients having hematocrit values >55% require a special collection tube for coagulation studies. Please contact the laboratory at [phone] for redraw instructions. RBC Auto (Bld) [#/Vol]Ordere d By: Williams Shepherd on 03-26-2023 RBC (Bld) [#/Vol] 4.27 10*6/uL 3.60-5.00 [facility] Serum or plasma anion gap de terminationOrdered By: Williams Shepherd on 03-26-2023 Anion gap [Moles/Vol] 13.0 mmol/L 6.0-15.[address] [facility] Sodium [Moles/volume] in Ser um or PlasmaOrdered By: Williams Shepherd on 03-26-2023 Sodium [Moles/Vol] 142 mmol/L 136-145 [facility] Urea nitrogen [Mass/volume] in Serum or PlasmaOrdered By: Williams Shepherd on 03-26-2023 Urea nitrogen [Mass/Vol] 12 mg/dL 7-25 [facility] WBC Auto (Bld) [#/Vol]Ordere d By: Williams Shepherd on 03-26-2023 WBC (Bld) [#/Vol] 5.9 10*3/uL 3.8-11.6 [facility] Consultation Noteon 03-17-20 Consultation Note [id number]:[address] [facility] [facility] 02-12-2023 Lab Reports [id number]:12 7 Normal [facility] RAD - MISCon 02-12-2023 RAD - MISC [id number]:12 7 Normal [facility] RAD - CT Reporton 02-05-2023 RAD - CT Report [id number]:12 7 Normal [facility] RAD - MISCon 02-05-2023 RAD - MISC [id number]:12 7 Normal [facility] Ambulatory Visit Summaryon 0 02-03-2023 Ambulatory [...] physician if questions or concerns [facility] acarbose acetaminophen (Tylenol Extra Strength 500 [...] AGUIAR, Williams Venegas Where: [facility] Patient Educationon 02-04-20 23 Patient Education Urology Kidney Stones Kidney stones [...] these instructions at home: Medicines ? Take yqtr-msd-geiclpt and prescription medicines only as told by [...] month follow up w/ CT scan done @[facility] on 01/15/23. CT scan shows [...] MD, URL [address] [place] [address]- Additional Instructions: Patient Education Kidney Stones I, Fanny Bowen, personally scribed for Dr. Shepherd on 02/03/2023 12:04:03. . Documentation recorded by the scribe, Fanny Bowen, accurately reflects the services(s) I performed and decisions made by me. Authenticated by Dr. Shepherd on 02/03/2023 12:37:35. Portions of this record may have been created with voice recognition artificial intelligence software, specifically [employer], [employer] and or [employer]. Substitutions may have occurred due to the inherent limitations of voice recognition and artificial intelligence software. 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 Normal [facility] Comment on above: Result Comment: Elec tronically Signed By: Williams SHEPHERD MD\.br\Date and Time Signed: 02/03/23 12:39 EDT\.br\Electronically Co-Signed By: Fanny Bowen\.br\Date and Time Co-Signed: 02/03/23 12:04 EDT PROTIMEon 12-02-2022 INR Coag (PPP) [Relative time] 3.62 {INR} Normal [facility] Comment on above: Performed By: #### P T #### [facility] [address] [address] [address] Tg Fierro INR GUIDELINES SEE BELOW Normal [facility] Comment on above: Result Comment: LAURENCE RED INR: 2.0 - 3.0 CONDITIONS NOT LISTED BELOW 2.5 - 3.5 FOR PROSTHETIC HEART VALVE REPLACEMENT 2.5 - 3.5 RECURRENT THROMBOSIS Performed By: #### P T #### [facility] [address] [address] [address] Tg Fierro PT Coag (PPP) [Time] 35.7 s Critically high 9.0-11.6 [facility] Comment on above: Performed By: #### P T #### [facility] [address] [place] [address] Dr. Tg Fierro PROTIMEon 11-11-2022 INR Coag (PPP) [Relative time] 1.90 {INR} Normal [facility] Comment on above: Performed By: #### P T #### [facility] [address] [place] [address] Dr. Tg Fierro INR GUIDELINES SEE BELOW Normal [facility] Comment on above: Result Comment: LAURENCE RED INR: 2.0 - 3.0 CONDITIONS NOT LISTED BELOW 2.5 - 3.5 FOR PROSTHETIC HEART VALVE REPLACEMENT 2.5 - 3.5 RECURRENT THROMBOSIS Performed By: #### P T #### [facility] [address] [place] [address] Dr. Tg Fierro PT Coag (PPP) [Time] 19.4 s Critically high 9.0-11.6 [facility] Comment on above: Performed By: #### P T #### [facility] [address] [place] [address] Dr. Tg Fierro CBC AUTO DIFFon 10-25-2022 BASO # 0.0 103/ul Normal 0.0-0.1 [facility] Comment on above: Performed By: #### P T #### [facility] [address] [place] [address] Dr. Tg Fierro Basophils/100 WBC (Bld) 0.5 % Normal 0.2-2.0 [facility] Comment on above: Performed By: #### P T #### [facility] [address] [place] [address] Dr. Tg Fierro EO # 0.2 103/ul Normal 0.0-0.7 [facility] Comment on above: Performed By: #### P T #### [facility] [address] [place] [address] Dr. Tg Fierro Eosinophils/100 WBC (Bld) 2.7 % Normal 0.9-7.0 [facility] Comment on above: Performed By: #### P T #### [facility] [address] [place] [address] Dr. Tg Fierro Erythrocyte distribution width (RBC) [Ratio] 13.4 % Normal 11.0-15.0 [facility] Comment on above: Performed By: #### P T #### [facility] [address] [place] [address] Dr. Tg Fierro Hematocrit (Bld) [Volume fraction] 40.7 % Normal 36.0-48.0 [facility] Comment on above: Performed By: #### P T #### [facility] [address] [place] [address] Dr. Tg Fierro Hemoglobin (Bld) [Mass/Vol] 13.2 g/dL Normal 12.0-16.0 [facility] Comment on above: Performed By: #### P T #### [facility] [address] [place] [address] Dr. Tg Fierro IG # 0.03 10e3/ul Normal 0.00-0.03 [facility] Comment on above: Performed By: #### P T #### [facility] [address] [place] [address] Dr. Tg Fierro IG % 0.5 % Normal 0.0-0.5 [facility] Comment on above: Performed By: #### P T #### [facility] [address] [place] [address] Dr. Tg Fierro LYMPH # 2.1 103/ul Normal 1.2-3.8 [facility] Comment on above: Performed By: #### P T #### [facility] [address] [place] [address] Dr. Tg Fierro Lymphocytes/100 WBC (Bld) 34.9 % Normal 20.5-60.0 [facility] Comment on above: Performed By: #### P T #### [facility] [address] [place] [address] Dr. Tg Fierro MANUAL DIFF REQ NO Normal [facility] Comment on above: Performed By: #### P T #### [facility] [address] [address] [address] Tg Fierro MCH (RBC) [Entitic mass] 30.5 pg Normal 26.7-34.0 [facility] Comment on above: Performed By: #### P T #### [facility] [address] [place] [address] Dr. Tg Fierro MCHC (RBC) [Mass/Vol] 32.4 g/dL Normal 29.9-35.2 [facility] Comment on above: Performed By: #### P T #### [facility] [address] [place] [address] Dr. Tg Fierro MCV (RBC) [Entitic vol] 94.0 fL Normal 81.0-99.0 [facility] Comment on above: Performed By: #### P T #### [facility] [address] [place] [address] Dr. Tg Fierro MONO # 0.4 103/ul Normal 0.3-0.8 [facility] Comment on above: Performed By: #### P T #### [facility] [address] [place] [address] Dr. Tg Fierro Monocytes/100 WBC (Bld) 7.1 % Normal 1.7-12.0 [facility] Comment on above: Performed By: #### P T #### [facility] [address] [place] [address] Dr. Tg Fierro NEUT # 3.2 103/ul Normal 1.4-6.5 [facility] Comment on above: Performed By: #### P T #### [facility] [address] [place] [address] Dr. Tg Fierro Neutrophils/100 WBC (Bld) 54.3 % Normal 43.0-75.0 [facility] Comment on above: Performed By: #### P T #### [facility] [address] [place] [address] Dr. Tg Fierro Platelet mean volume (Bld) [Entitic vol] 8.7 fL Critically low 9.5-13.5 [facility] Comment on above: Performed By: #### P T #### [facility] [address] [address] [address] Tg Fierro PLT 295 103/ul Normal 150-450 [facility] Comment on above: Performed By: #### P T #### [facility] [address] [address] [address] Tg Fierro RBC 4.33 106/ul Normal 4.20-5.40 [facility] Comment on above: Performed By: #### P T #### [facility] [address] [place] [address] Dr. Tg Fierro WBC 5.9 103/ul Normal 4.0-11.0 [facility] Comment on above: Performed By: #### P T #### [facility] [address] [place] [address] Dr. Tg Fierro PROF 14(COMP METB)on 023 Albumin [Mass/Vol] 3.8 g/dL Normal 3.4-5.0 [facility] Comment on above: Performed By: #### C MP #### [facility] [address] [place] [address] Dr. Tg Fierro Albumin/Globulin [Mass ratio] 1.2 {ratio} Normal [facility] Comment on above: Performed By: #### C MP #### [facility] [address] [place] [address] Dr. Tg Fierro ALP [Catalytic activity/Vol] 49 U/L Normal 46-116 [facility] Comment on above: Performed By: #### C MP #### [facility] [address] [place] [address] Dr. Tg Fierro ALT [Catalytic activity/Vol] 21 U/L Normal 14-59 [facility] Comment on above: Performed By: #### C MP #### [facility] [address] [place] [address] Dr. Tg Fierro Anion gap [Moles/Vol] 13.3 mmol/L Normal [facility] Comment on above: Performed By: #### C MP #### [facility] [address] [address] [address] Tg Fierro AST [Catalytic activity/Vol] 14 U/L Critically low 15-37 [facility] Comment on above: Performed By: #### C MP #### [facility] [address] [place] [address] Dr. Tg Fierro Bilirubin [Mass/Vol] 0.5 mg/dL Normal 0.2-1.0 [facility] Comment on above: Performed By: #### C MP #### [facility] [address] [place] [address] Dr. Tg Fierro Calcium [Mass/Vol] 9.5 mg/dL Normal 8.5-10.1 [facility] Comment on above: Performed By: #### C MP #### [facility] [address] [place] [address] Dr. Tg Fierro Chloride [Moles/Vol] 104 mmol/L Normal 98-107 [facility] Comment on above: Performed By: #### C MP #### [facility] [address] [place] [address] Dr. Tg Fierro CO2 [Moles/Vol] 29.3 mmol/L Normal 21.0-32.0 [facility] Comment on above: Performed By: #### C MP #### [facility] [address] [place] [address] Dr. Tg Fierro Creatinine [Mass/Vol] 0.93 mg/dL Normal 0.55-1.02 [facility] Comment on above: Performed By: #### C MP #### [facility] [address] [place] [address] Dr. Tg Fierro EGFR-AF NAURUAN >60 Normal >=60 [facility] Comment on above: Performed By: #### C MP #### [facility] [address] [place] [address] Dr. Tg Fierro EGFR-NON AF NAURUAN 59 mL/min/1.73m2 Critically low >=60 [facility] Comment on above: Performed By: #### C MP #### [facility] [address] [place] [address] Dr. Tg Fierro Globulin (S) [Mass/Vol] 3.2 g/dL Normal [facility] Comment on above: Performed By: #### C MP #### [facility] [address] [address] [address] Tg Fierro Glucose [Mass/Vol] 186 mg/dL Critically high 74-[address] [facility] Comment on above: Performed By: #### C MP #### [facility] [address] [address] [address] Tg Fierro Potassium [Moles/Vol] 4.6 mmol/L Normal 3.5-5.1 [facility] Comment on above: Performed By: #### C MP #### [facility] [address] [address] [address] Tg Fierro Protein [Mass/Vol] 7.0 g/dL Normal 6.4-8.2 [facility] Comment on above: Performed By: #### C MP #### [facility] [address] [place] [address] Dr. Tg Fierro Sodium [Moles/Vol] 142 mmol/L Normal 136-145 [facility] Comment on above: Performed By: #### C MP #### [facility] [address] [place] [address] Dr. Tg Fierro Urea nitrogen [Mass/Vol] 15.0 mg/dL Normal 7.0-18.0 [facility] Comment on above: Performed By: #### C MP #### [facility] [address] [address] [address] Tg Fierro Urea nitrogen/Creatinine [Mass ratio] 16.1 mg/mg Normal [facility] Comment on above: Performed By: #### C MP #### [facility] [address] [place] [address] Dr. Tg Fierro SED RATE HEWITTERGRENon 2022 SED RATE 9 mm/hr Normal <=30 [facility] Comment on above: Performed By: #### C MP #### [facility] [address] [place] [address] Dr. Tg Fierro PROTIMEon 10-14-2022 INR Coag (PPP) [Relative time] 1.94 {INR} Normal [facility] Comment on above: Performed By: #### P T #### [facility] [address] [place] [address] Dr. Tg Fierro INR GUIDELINES SEE BELOW Normal [facility] Comment on above: Result Comment: LAURENCE RED INR: 2.0 - 3.0 CONDITIONS NOT LISTED BELOW 2.5 - 3.5 FOR PROSTHETIC HEART VALVE REPLACEMENT 2.5 - 3.5 RECURRENT THROMBOSIS Performed By: #### P T #### [facility] [address] [place] [address] Dr. Tg Fierro PT Coag (PPP) [Time] 19.8 s Critically high 9.0-11.6 [facility] Comment on above: Performed By: #### P T #### [facility] [address] [place] [address] Dr. Tg Fierro CBC AUTO DIFFon 09-24-2022 BASO # 0.1 103/ul Normal 0.0-0.1 [facility] Comment on above: Performed By: #### P T #### [facility] [address] [place] [address] Dr. Tg Fierro Basophils/100 WBC (Bld) 0.7 % Normal 0.2-2.0 [facility] Comment on above: Performed By: #### P T #### [facility] [address] [place] [address] Dr. Tg Fierro EO # 0.3 103/ul Normal 0.0-0.7 [facility] Comment on above: Performed By: #### P T #### [facility] [address] [place] [address] Dr. Tg Fierro Eosinophils/100 WBC (Bld) 3.6 % Normal 0.9-7.0 [facility] Comment on above: Performed By: #### P T #### [facility] [address] [place] [address] Dr. Tg Fierro Erythrocyte distribution width (RBC) [Ratio] 13.4 % Normal 11.0-15.0 [facility] Comment on above: Performed By: #### P T #### [facility] [address] [address] [address] Tg Fierro Hematocrit (Bld) [Volume fraction] 38.4 % Normal 36.0-48.0 [facility] Comment on above: Performed By: #### P T #### [facility] [address] [address] [address] Tg Fierro Hemoglobin (Bld) [Mass/Vol] 12.7 g/dL Normal 12.0-16.0 [facility] Comment on above: Performed By: #### P T #### [facility] [address] [address] [address] Tg Fierro IG # 0.05 10e3/ul Critically high 0.00-0.03 [facility] Comment on above: Performed By: #### P T #### [facility] [address] [place] [address] Dr. Tg Feirro IG % 0.7 % Critically high 0.0-0.5 [facility] Comment on above: Performed By: #### P T #### [facility] [address] [address] [address] Tg Fierro LYMPH # 2.6 103/ul Normal 1.2-3.8 [facility] Comment on above: Performed By: #### P T #### [facility] [address] [place] [address] Dr. Tg Fierro Lymphocytes/100 WBC (Bld) 34.2 % Normal 20.5-60.0 [facility] Comment on above: Performed By: #### P T #### [facility] [address] [place] [address] Dr. Tg Fierro MANUAL DIFF REQ NO Normal [facility] Comment on above: Performed By: #### P T #### [facility] [address] [place] [address] Dr. Tg Fierro MCH (RBC) [Entitic mass] 31.2 pg Normal 26.7-34.0 [facility] Comment on above: Performed By: #### P T #### [facility] [address] [address] [address] Tg Fierro MCHC (RBC) [Mass/Vol] 33.1 g/dL Normal 29.9-35.2 [facility] Comment on above: Performed By: #### P T #### [facility] [address] [address] [address] Tg Fierro MCV (RBC) [Entitic vol] 94.3 fL Normal 81.0-99.0 [facility] Comment on above: Performed By: #### P T #### [facility] [address] [place] [address] Dr. Tg Fierro MONO # 0.6 103/ul Normal 0.3-0.8 [facility] Comment on above: Performed By: #### P T #### [facility] [address] [place] [address] Dr. Tg Fierro Monocytes/100 WBC (Bld) 8.1 % Normal 1.7-12.0 [facility] Comment on above: Performed By: #### P T #### [facility] [address] [place] [address] Dr. Tg Fierro NEUT # 4.1 103/ul Normal 1.4-6.5 [facility] Comment on above: Performed By: #### P T #### [facility] [address] [place] [address] Dr. Tg Fierro Neutrophils/100 WBC (Bld) 52.7 % Normal 43.0-75.0 [facility] Comment on above: Performed By: #### P T #### [facility] [address] [place] [address] Dr. Tg Fierro Platelet mean volume (Bld) [Entitic vol] 8.7 fL Critically low 9.5-13.5 [facility] Comment on above: Performed By: #### P T #### [facility] [address] [place] [address] Dr. Tg Fierro PLT 278 103/ul Normal 150-450 [facility] Comment on above: Performed By: #### P T #### [facility] [address] [place] [address] Dr. Tg Fierro RBC 4.07 106/ul Critically low 4.20-5.40 [facility] Comment on above: Performed By: #### P T #### [facility] [address] [place] [address] Dr. Tg Fierro WBC 7.7 103/ul Normal 4.0-11.0 [facility] Comment on above: Performed By: #### P T #### [facility] [address] [place] [address] Dr. Tg Fierro PROF 14(COMP METB)on 023 Albumin [Mass/Vol] 3.9 g/dL Normal 3.4-5.0 [facility] Comment on above: Performed By: #### C MP #### [facility] [address] [place] [address] Dr. Tg Fierro Albumin/Globulin [Mass ratio] 1.4 {ratio} Normal [facility] Comment on above: Performed By: #### C MP #### [facility] [address] [place] [address] Dr. Tg Fierro ALP [Catalytic activity/Vol] 59 U/L Normal 46-116 [facility] Comment on above: Performed By: #### C MP #### [facility] [address] [place] [address] Dr. Tg Fierro ALT [Catalytic activity/Vol] 21 U/L Normal 14-59 [facility] Comment on above: Performed By: #### C MP #### [facility] [address] [place] [address] Dr. Tg Fierro Anion gap [Moles/Vol] 10.8 mmol/L Normal [facility] Comment on above: Performed By: #### C MP #### [facility] [address] [place] [address] Dr. Tg Fierro AST [Catalytic activity/Vol] 9 U/L Critically low 15-37 [facility] Comment on above: Performed By: #### C MP #### [facility] [address] [place] [address] Dr. Tg Fierro Bilirubin [Mass/Vol] 0.3 mg/dL Normal 0.2-1.0 [facility] Comment on above: Performed By: #### C MP #### [facility] [address] [address] [address] Tg Fierro Calcium [Mass/Vol] 9.1 mg/dL Normal 8.5-10.1 [facility] Comment on above: Performed By: #### C MP #### [facility] [address] [address] [address] Tg Fierro Chloride [Moles/Vol] 104 mmol/L Normal 98-107 [facility] Comment on above: Performed By: #### C MP #### [facility] [address] [address] [address] Tg Fierro CO2 [Moles/Vol] 28.3 mmol/L Normal 21.0-32.0 [facility] Comment on above: Performed By: #### C MP #### [facility] [address] [address] [address] Tg Fierro Creatinine [Mass/Vol] 0.86 mg/dL Normal 0.55-1.02 [facility] Comment on above: Performed By: #### C MP #### [facility] [address] [place] [address] Dr. gT Fierro EGFR-AF NAURUAN >60 Normal >=60 [facility] Comment on above: Performed By: #### C MP #### [facility] [address] [address] [address] Tg Fierro EGFR-NON AF NAURUAN >60 Normal >=60 [facility] Comment on above: Performed By: #### C MP #### [facility] [address] [address] [address] Tg Fierro Globulin (S) [Mass/Vol] 2.7 g/dL Normal [facility] Comment on above: Performed By: #### C MP #### [facility] [address] [address] [address] Tg Fierro Glucose [Mass/Vol] 120 mg/dL Critically high 74-[address] [facility] Comment on above: Performed By: #### C MP #### [facility] [address] [address] [address] Tg Fierro Potassium [Moles/Vol] 4.1 mmol/L Normal 3.5-5.1 [facility] Comment on above: Performed By: #### C MP #### [facility] [address] [address] [address] Tg Fierro Protein [Mass/Vol] 6.6 g/dL Normal 6.4-8.2 [facility] Comment on above: Performed By: #### C MP #### [facility] [address] [address] [address] Tg Fierro Sodium [Moles/Vol] 139 mmol/L Normal 136-145 [facility] Comment on above: Performed By: #### C MP #### [facility] [address] [address] [address] Tg Fierro Urea nitrogen [Mass/Vol] 13.0 mg/dL Normal 7.0-18.0 [facility] Comment on above: Performed By: #### C MP #### [facility] [address] [address] [address] Tg Fierro Urea nitrogen/Creatinine [Mass ratio] 15.1 mg/mg Normal [facility] Comment on above: Performed By: #### C MP #### [facility] [address] [address] [address] Tg Fierro PROTIMEon 09-24-2022 INR Coag (PPP) [Relative time] 1.35 {INR} Normal [facility] Comment on above: Performed By: #### P T #### [facility] [address] [address] [address] Tg Fierro INR GUIDELINES SEE BELOW Normal [facility] Comment on above: Result Comment: LAURENCE RED INR: 2.0 - 3.0 CONDITIONS NOT LISTED BELOW 2.5 - 3.5 FOR PROSTHETIC HEART VALVE REPLACEMENT 2.5 - 3.5 RECURRENT THROMBOSIS Performed By: #### P T #### [facility] [address] [address] [address] Tg Fierro PT Coag (PPP) [Time] 14.1 s Critically high 9.0-11.6 [facility] Comment on above: Performed By: #### P T #### [facility] [address] [address] [address] Tg Fier[facility] R[facility] 8 mm/hr Normal <=30 [facility] [facility] Comment on above: Performed By: #### C MP #### [facility] [address] [place] [address] Dr. Tg Fierro PROTIMEon 09-09-2022 INR Coag (PPP) [Relative time] 1.23 {INR} Normal [facility] Comment on above: Performed By: #### P T #### [facility] [address] [place] [address] Dr. Tg Fierro INR GUIDELINES SEE BELOW Normal [facility] Comment on above: Result Comment: LAURENCE RED INR: 2.0 - 3.0 CONDITIONS NOT LISTED BELOW 2.5 - 3.5 FOR PROSTHETIC HEART VALVE REPLACEMENT 2.5 - 3.5 RECURRENT THROMBOSIS Performed By: #### P T #### [facility] [address] [place] [address] Dr. Tg Fierro PT Coag (PPP) [Time] 12.9 s Critically high 9.0-11.6 [facility] Comment on above: Performed By: #### P T #### [facility] [address] [place] [address] Dr. Tg Fierro ECHOCARDIO M/2D COMPLETEon 0 09-02-2022 ECHOCARDIO M/2D COMPLETE Patient: WILDA SEN Exam Date: 09/02/2022 : 1945 Gender:F Ordering : DR JAYME PEREZ . Admission #: [id number] Family : Order #: [id number] CLICK HERE TO VIEW EXAM ECHOCARDIOGRAM REPORT [...] Bender M.D. on 09/03/2022 at 17:25 Normal [facility] GLYCOHEMOGLOBIN A1Con 2022 ADA RECOMMENDATION SEE BELOW [facility] Comment on above: Result Comment: ADA RECOMMENDED LIMIT 4.0 - 6.0 ADA THERAPEUTIC TARGET < 7.0 ACTION SUGGESTED > 7.0 Performed By: #### A 1C #### [facility] [address] [place] [address] Dr. Tg Fierro Glucose [Mass/Vol] 148 mg/dL Normal [facility] Comment on above: Performed By: #### A 1C #### [facility] [address] [place] [address] Dr. Tg Fierro HbA1c (Bld) [Mass fraction] 6.8 % Critically high 4.5-6.2 [facility] Comment on above: Performed By: #### A 1C #### [facility] [address] [place] [address] Dr. Tg Fieror CBC AUTO DIFFon 08-05-2022 BASO # 0.1 103/ul Normal 0.0-0.1 [facility] Comment on above: Performed By: #### C BC #### [facility] [address] [place] [address] Dr. Tg Fierro Basophils/100 WBC (Bld) 0.8 % Normal 0.2-2.0 [facility] Comment on above: Performed By: #### C BC #### [facility] [address] [place] [address] Dr. Tg Fierro EO # 0.5 103/ul Normal 0.0-0.7 [facility] Comment on above: Performed By: #### C BC #### [facility] [address] [place] [address] Dr. Tg Fierro Eosinophils/100 WBC (Bld) 7.3 % Critically high 0.9-7.0 [facility] Comment on above: Performed By: #### C BC #### [facility] [address] [place] [address] Dr. Tg Fierro Erythrocyte distribution width (RBC) [Ratio] 13.4 % Normal 11.0-15.0 [facility] Comment on above: Performed By: #### C BC #### [facility] [address] [place] [address] Dr. Tg Fierro Hematocrit (Bld) [Volume fraction] 37.1 % Normal 36.0-48.0 [facility] Comment on above: Performed By: #### C BC #### [facility] [address] [place] [address] Dr. Tg Fierro Hemoglobin (Bld) [Mass/Vol] 12.9 g/dL Normal 12.0-16.0 [facility] Comment on above: Performed By: #### C BC #### [facility] [address] [place] [address] Dr. Tg Fierro IG # 0.03 10e3/ul Normal 0.00-0.03 [facility] Comment on above: Performed By: #### C BC #### [facility] [address] [place] [address] Dr. Tg Fierro IG % 0.5 % Normal 0.0-0.5 [facility] Comment on above: Performed By: #### C BC #### [facility] [address] [place] [address] Dr. Tg Fierro LYMPH # 2.3 103/ul Normal 1.2-3.8 [facility] Comment on above: Performed By: #### C BC #### [facility] [address] [place] [address] Dr. Tg Fierro Lymphocytes/100 WBC (Bld) 34.9 % Normal 20.5-60.0 [facility] Comment on above: Performed By: #### C BC #### [facility] [address] [place] [address] Dr. Tg Fierro MANUAL DIFF REQ NO Normal [facility] Comment on above: Performed By: #### C BC #### [facility] [address] [place] [address] Dr. Tg Fierro MCH (RBC) [Entitic mass] 31.0 pg Normal 26.7-34.0 [facility] Comment on above: Performed By: #### C BC #### [facility] [address] [place] [address] Dr. Tg Fierro MCHC (RBC) [Mass/Vol] 34.8 g/dL Normal 29.9-35.2 [facility] Comment on above: Performed By: #### C BC #### [facility] [address] [place] [address] Dr. Tg Fierro MCV (RBC) [Entitic vol] 89.2 fL Normal 81.0-99.0 [facility] Comment on above: Performed By: #### C BC #### [facility] [address] [place] [address] Dr. Tg Fierro MONO # 0.4 103/ul Normal 0.3-0.8 [facility] Comment on above: Performed By: #### C BC #### [facility] [address] [place] [address] Dr. Tg Fierro Monocytes/100 WBC (Bld) 6.1 % Normal 1.7-12.0 [facility] Comment on above: Performed By: #### C BC #### [facility] [address] [place] [address] Dr. Tg Fierro NEUT # 3.3 103/ul Normal 1.4-6.5 [facility] Comment on above: Performed By: #### C BC #### [facility] [address] [place] [address] Dr. Tg Fierro Neutrophils/100 WBC (Bld) 50.4 % Normal 43.0-75.0 [facility] Comment on above: Performed By: #### C BC #### [facility] [address] [place] [address] Dr. Tg Fierro Platelet mean volume (Bld) [Entitic vol] 8.6 fL Critically low 9.5-13.5 [facility] Comment on above: Performed By: #### C BC #### [facility] [address] [place] [address] Dr. Tg Fierro PLT 336 103/ul Normal 150-450 [facility] Comment on above: Performed By: #### C BC #### [facility] [address] [place] [address] Dr. Tg Fierro RBC 4.16 106/ul Critically low 4.20-5.40 [facility] Comment on above: Performed By: #### C BC #### [facility] [address] [place] [address] Dr. Tg Fierro WBC 6.4 103/ul Normal 4.0-11.0 [facility] Comment on above: Performed By: #### C BC #### [facility] [address] [place] [address] Dr. Tg Fierro PROF 14(COMP METB)on 01-23-2 023 Albumin [Mass/Vol] 3.9 g/dL Normal 3.4-5.0 [facility] Comment on above: Performed By: #### P T #### [facility] [address] [place] [address] Dr. Tg Fierro Albumin/Globulin [Mass ratio] 1.3 {ratio} Normal [facility] Comment on above: Performed By: #### P T #### [facility] [address] [address] [address] Tg Fierro ALP [Catalytic activity/Vol] 60 U/L Normal 46-116 [facility] Comment on above: Performed By: #### P T #### [facility] [address] [place] [address] Dr. Tg Fierro ALT [Catalytic activity/Vol] 21 U/L Normal 14-59 [facility] Comment on above: Performed By: #### P T #### [facility] [address] [place] [address] Dr. Tg Fierro Anion gap [Moles/Vol] 15.2 mmol/L Normal [facility] Comment on above: Performed By: #### P T #### [facility] [address] [place] [address] Dr. Tg Fierro AST [Catalytic activity/Vol] 14 U/L Critically low 15-37 [facility] Comment on above: Performed By: #### P T #### [facility] [address] [place] [address] Dr. Tg Fierro Bilirubin [Mass/Vol] 0.4 mg/dL Normal 0.2-1.0 [facility] Comment on above: Performed By: #### P T #### [facility] [address] [place] [address] Dr. Tg Fierro Calcium [Mass/Vol] 9.3 mg/dL Normal 8.5-10.1 [facility] Comment on above: Performed By: #### P T #### [facility] [address] [place] [address] Dr. Tg Fierro Chloride [Moles/Vol] 102 mmol/L Normal 98-107 [facility] Comment on above: Performed By: #### P T #### [facility] [address] [address] [address] Tg Fierro CO2 [Moles/Vol] 26.8 mmol/L Normal 21.0-32.0 [facility] Comment on above: Performed By: #### P T #### [facility] [address] [address] [address] Tg Fierro Creatinine [Mass/Vol] 0.74 mg/dL Normal 0.55-1.02 [facility] Comment on above: Performed By: #### P T #### [facility] [address] [address] [address] Tg Fierro EGFR-AF NAURUAN >60 Normal >=60 [facility] Comment on above: Performed By: #### P T #### [facility] [address] [address] [address] Tg Firero EGFR-NON AF NAURUAN >60 Normal >=60 [facility] Comment on above: Performed By: #### P T #### [facility] [address] [address] [address] Tg Fierro Globulin (S) [Mass/Vol] 3.1 g/dL Normal [facility] Comment on above: Performed By: #### P T #### [facility] [address] [address] [address] Tg Fierro Glucose [Mass/Vol] 148 mg/dL Critically high 74-106 [facility] Comment on above: Performed By: #### P T #### [facility] [address] [address] [address] Tg Fierro Potassium [Moles/Vol] 4.0 mmol/L Normal 3.5-5.1 [facility] Comment on above: Performed By: #### P T #### [facility] [address] [address] [address] Tg Fierro Protein [Mass/Vol] 7.0 g/dL Normal 6.4-8.2 [facility] Comment on above: Performed By: #### P T #### [facility] [address] [place] [address] Dr. Tg Fierro Sodium [Moles/Vol] 140 mmol/L Normal 136-145 [facility] Comment on above: Performed By: #### P T #### [facility] [address] [place] [address] Dr. Tg Fierro Urea nitrogen [Mass/Vol] 12.0 mg/dL Normal 7.0-18.0 [facility] Comment on above: Performed By: #### P T #### [facility] [address] [place] [address] Dr. Tg Fierro Urea nitrogen/Creatinine [Mass ratio] 16.2 mg/mg Normal [facility] Comment on above: Performed By: #### P T #### [facility] [address] [place] [address] Dr. Tg Fierro SED [facility] 2022 SED RATE 30 mm/hr Normal <=30 [facility] Comment on above: Performed By: #### S EDR #### [facility] [address] [place] [address] Dr. Tg Fierro CBC AUTO DIFFon 04-15-2022 BASO # 0.1 103/ul Normal 0.0-0.1 [facility] Comment on above: Performed By: #### C BC #### [facility] [address] [place] [address] Dr. Tg Fierro Basophils/100 WBC (Bld) 0.6 % Normal 0.2-2.0 [facility] Comment on above: Performed By: #### C BC #### [facility] [address] [place] [address] Dr. Tg Fierro EO # 0.2 103/ul Normal 0.0-0.7 [facility] Comment on above: Performed By: #### C BC #### [facility] [address] [place] [address] Dr. Tg Fierro Eosinophils/100 WBC (Bld) 3.1 % Normal 0.9-7.0 [facility] Comment on above: Performed By: #### C BC #### [facility] [address] [place] [address] Dr. Tg Fierro Erythrocyte distribution width (RBC) [Ratio] 13.6 % Normal 11.0-15.0 [facility] Comment on above: Performed By: #### C BC #### [facility] [address] [place] [address] Dr. Tg Fierro Hematocrit (Bld) [Volume fraction] 42.3 % Normal 36.0-48.0 [facility] Comment on above: Performed By: #### C BC #### [facility] [address] [place] [address] Dr. Tg Fierro Hemoglobin (Bld) [Mass/Vol] 13.2 g/dL Normal 12.0-16.0 [facility] Comment on above: Performed By: #### C BC #### [facility] [address] [place] [address] Dr. Tg Fierro IG # 0.04 10e3/ul Critically high 0.00-0.03 [facility] Comment on above: Performed By: #### C BC #### [facility] [address] [place] [address] Dr. Tg Fierro IG % 0.5 % Normal 0.0-0.5 [facility] Comment on above: Performed By: #### C BC #### [facility] [address] [place] [address] Dr. Tg Fierro LYMPH # 2.5 103/ul Normal 1.2-3.8 [facility] Comment on above: Performed By: #### C BC #### [facility] [address] [place] [address] Dr. Tg Fierro Lymphocytes/100 WBC (Bld) 31.6 % Normal 20.5-60.0 [facility] Comment on above: Performed By: #### C BC #### [facility] [address] [place] [address] Dr. Tg Fierro MANUAL DIFF REQ NO Normal [facility] Comment on above: Performed By: #### C BC #### [facility] [address] [place] [address] Dr. Tg Fierro MCH (RBC) [Entitic mass] 30.3 pg Normal 26.7-34.0 [facility] Comment on above: Performed By: #### C BC #### [facility] [address] [place] [address] Dr. Tg Fierro MCHC (RBC) [Mass/Vol] 31.2 g/dL Normal 29.9-35.2 [facility] Comment on above: Performed By: #### C BC #### [facility] [address] [place] [address] Dr. Tg Fierro MCV (RBC) [Entitic vol] 97.0 fL Normal 81.0-99.0 [facility] Comment on above: Performed By: #### C BC #### [facility] [address] [place] [address] Dr. Tg Fierro MONO # 0.5 103/ul Normal 0.3-0.8 [facility] Comment on above: Performed By: #### C BC #### [facility] [address] [place] [address] Dr. Tg Fierro Monocytes/100 WBC (Bld) 6.3 % Normal 1.7-12.0 [facility] Comment on above: Performed By: #### C BC #### [facility] [address] [place] [address] Dr. Tg Fierro NEUT # 4.5 103/ul Normal 1.4-6.5 [facility] Comment on above: Performed By: #### C BC #### [facility] [address] [place] [address] Dr. Tg Fierro Neutrophils/100 WBC (Bld) 57.9 % Normal 43.0-75.0 [facility] Comment on above: Performed By: #### C BC #### [facility] [address] [place] [address] Dr. Tg Fierro Platelet mean volume (Bld) [Entitic vol] 8.6 fL Critically low 9.5-13.5 [facility] Comment on above: Performed By: #### C BC #### [facility] [address] [place] [address] Dr. Tg Fierro PLT 295 103/ul Normal 150-450 [facility] Comment on above: Performed By: #### C BC #### [facility] [address] [place] [address] Dr. Tg Fierro RBC 4.36 106/ul Normal 4.20-5.40 [facility] Comment on above: Performed By: #### C BC #### [facility] [address] [place] [address] Dr. Tg Fierro WBC 7.8 103/ul Normal 4.0-11.0 [facility] Comment on above: Performed By: #### C BC #### [facility] [address] [place] [address] Dr. Tg Fierro PROF 14(COMP METB)on 022 Albumin [Mass/Vol] 4.5 g/dL Normal 3.4-5.0 [facility] Comment on above: Performed By: #### C MP #### [facility] [address] [place] [address] Dr. Tg Fierro Albumin/Globulin [Mass ratio] 1.5 {ratio} Normal [facility] Comment on above: Performed By: #### C MP #### [facility] [address] [place] [address] Dr. Tg Fierro ALP [Catalytic activity/Vol] 62 U/L Normal 46-116 [facility] Comment on above: Performed By: #### C MP #### [facility] [address] [place] [address] Dr. Tg Fierro ALT [Catalytic activity/Vol] 25 U/L Normal 14-59 [facility] Comment on above: Performed By: #### C MP #### [facility] [address] [place] [address] Dr. Tg Fierro Anion gap [Moles/Vol] 10.6 mmol/L Normal [facility] Comment on above: Performed By: #### C MP #### [facility] [address] [place] [address] Dr. Tg Fierro AST [Catalytic activity/Vol] 12 U/L Critically low 15-37 [facility] Comment on above: Performed By: #### C MP #### [facility] [address] [place] [address] Dr. Tg Fierro Bilirubin [Mass/Vol] 0.5 mg/dL Normal 0.2-1.0 [facility] Comment on above: Performed By: #### C MP #### [facility] [address] [address] [address] Tg Fierro Calcium [Mass/Vol] 9.8 mg/dL Normal 8.5-10.1 [facility] Comment on above: Performed By: #### C MP #### [facility] [address] [place] [address] Dr. Tg Fierro Chloride [Moles/Vol] 102 mmol/L Normal 98-107 [facility] Comment on above: Performed By: #### C MP #### [facility] [address] [place] [address] Dr. Tg Fierro CO2 [Moles/Vol] 31.8 mmol/L Normal 21.0-32.0 [facility] Comment on above: Performed By: #### C MP #### [facility] [address] [place] [address] Dr. Tg Fierro Creatinine [Mass/Vol] 0.88 mg/dL Normal 0.55-1.02 [facility] Comment on above: Performed By: #### C MP #### [facility] [address] [place] [address] Dr. Tg Fierro EGFR-AF NAURUAN >60 Normal >=60 [facility] Comment on above: Performed By: #### C MP #### [facility] [address] [place] [address] Dr. Tg Fierro EGFR-NON AF NAURUAN >60 Normal >=60 [facility] Comment on above: Performed By: #### C MP #### [facility] [address] [place] [address] Dr. Tg Fierro Globulin (S) [Mass/Vol] 3.1 g/dL Normal [facility] Comment on above: Performed By: #### C MP #### [facility] [address] [address] [address] Tg Fierro Glucose [Mass/Vol] 187 mg/dL Critically high 74-106 [facility] Comment on above: Performed By: #### C MP #### [facility] [address] [address] [address] Tg Fierro Potassium [Moles/Vol] 4.4 mmol/L Normal 3.5-5.1 [facility] Comment on above: Performed By: #### C MP #### [facility] [address] [address] [address] Tg Fierro Protein [Mass/Vol] 7.6 g/dL Normal 6.4-8.2 [facility] Comment on above: Performed By: #### C MP #### [facility] [address] [place] [address] Dr. Tg Fierro Sodium [Moles/Vol] 140 mmol/L Normal 136-145 [facility] Comment on above: Performed By: #### C MP #### [facility] [address] [place] [address] Dr. Tg Fierro Urea nitrogen [Mass/Vol] 14.0 mg/dL Normal 7.0-18.0 [facility] Comment on above: Performed By: #### C MP #### [facility] [address] [place] [address] Dr. Tg Fierro Urea nitrogen/Creatinine [Mass ratio] 15.9 mg/mg Normal [facility] Comment on above: Performed By: #### C MP #### [facility] [address] [place] [address] Dr. Tg Fierro SED RATE WESTERGRENon 2021 SED RATE 5 mm/hr Normal <=30 [facility] Comment on above: Performed By: #### S EDR #### [facility] [address] [place] [address] Dr. Tg Fierro CBC AUTO DIFFon 02-07-2022 BASO # 0.0 103/ul Normal 0.0-0.1 [facility] Comment on above: Performed By: #### P T #### [facility] [address] [place] [address] Dr. Tg Fierro Basophils/100 WBC (Bld) 0.6 % Normal 0.2-2.0 [facility] Comment on above: Performed By: #### P T #### [facility] [address] [place] [address] Dr. Tg Fierro EO # 0.4 103/ul Normal 0.0-0.7 [facility] Comment on above: Performed By: #### P T #### [facility] [address] [place] [address] Dr. Tg Fierro Eosinophils/100 WBC (Bld) 5.4 % Normal 0.9-7.0 [facility] Comment on above: Performed By: #### P T #### [facility] [address] [place] [address] Dr. Tg Fierro Erythrocyte distribution width (RBC) [Ratio] 13.5 % Normal 11.0-15.0 [facility] Comment on above: Performed By: #### P T #### [facility] [address] [place] [address] Dr. Tg Fierro Hematocrit (Bld) [Volume fraction] 39.4 % Normal 36.0-48.0 [facility] Comment on above: Performed By: #### P T #### [facility] [address] [place] [address] Dr. Tg Fierro Hemoglobin (Bld) [Mass/Vol] 12.8 g/dL Normal 12.0-16.0 [facility] Comment on above: Performed By: #### P T #### [facility] [address] [place] [address] Dr. Tg Fierro IG # 0.02 10e3/ul Normal 0.00-0.03 [facility] Comment on above: Performed By: #### P T #### [facility] [address] [place] [address] Dr. Tg Fierro IG % 0.3 % Normal 0.0-0.5 [facility] Comment on above: Performed By: #### P T #### [facility] [address] [place] [address] Dr. Tg Fierro LYMPH # 2.4 103/ul Normal 1.2-3.8 [facility] Comment on above: Performed By: #### P T #### [facility] [address] [place] [address] Dr. Tg Fierro Lymphocytes/100 WBC (Bld) 36.2 % Normal 20.5-60.0 [facility] Comment on above: Performed By: #### P T #### [facility] [address] [place] [address] Dr. Tg Fierro MANUAL DIFF REQ NO Normal [facility] Comment on above: Performed By: #### P T #### [facility] [address] [place] [address] Dr. Tg Fierro MCH (RBC) [Entitic mass] 31.0 pg Normal 26.7-34.0 [facility] Comment on above: Performed By: #### P T #### [facility] [address] [place] [address] Dr. Tg Fierro MCHC (RBC) [Mass/Vol] 32.5 g/dL Normal 29.9-35.2 [facility] Comment on above: Performed By: #### P T #### [facility] [address] [place] [address] Dr. Tg Fierro MCV (RBC) [Entitic vol] 95.4 fL Normal 81.0-99.0 [facility] Comment on above: Performed By: #### P T #### [facility] [address] [place] [address] Dr. Tg Fierro MONO # 0.5 103/ul Normal 0.3-0.8 [facility] Comment on above: Performed By: #### P T #### [facility] [address] [place] [address] Dr. Tg Fierro Monocytes/100 WBC (Bld) 8.0 % Normal 1.7-12.0 [facility] Comment on above: Performed By: #### P T #### [facility] [address] [address] [address] Tg Fierro NEUT # 3.3 103/ul Normal 1.4-6.5 [facility] Comment on above: Performed By: #### P T #### [facility] [address] [address] [address] Tg Fierro Neutrophils/100 WBC (Bld) 49.5 % Normal 43.0-75.0 [facility] Comment on above: Performed By: #### P T #### [facility] [address] [address] [address] Tg Fierro Platelet mean volume (Bld) [Entitic vol] 8.7 fL Critically low 9.5-13.5 [facility] Comment on above: Performed By: #### P T #### [facility] [address] [address] [address] Tg Fierro PLT 276 103/ul Normal 150-450 [facility] Comment on above: Performed By: #### P T #### [facility] [address] [address] [address] Tg Fierro RBC 4.13 106/ul Critically low 4.20-5.40 [facility] Comment on above: Performed By: #### P T #### [facility] [address] [address] [address] Tg Fierro WBC 6.7 103/ul Normal 4.0-11.0 [facility] Comment on above: Performed By: #### P T #### [facility] [address] [address] [address] Tg Fierro GLYCOHEMOGLOBIN A1Con 2021 ADA RECOMMENDATION SEE BELOW Normal [facility] Comment on above: Result Comment: ADA RECOMMENDED LIMIT 4.0 - 6.0 ADA THERAPEUTIC TARGET < 7.0 ACTION SUGGESTED > 7.0 Performed By: #### A 1C #### [facility] [address] [address] [address] Tg Fierro Glucose [Mass/Vol] 151 mg/dL Normal [facility] Comment on above: Performed By: #### A 1C #### [facility] [address] [place] [address] Dr. Tg Fierro HbA1c (Bld) [Mass fraction] 6.9 % Critically high 4.5-6.2 [facility] Comment on above: Performed By: #### A 1C #### [facility] [address] [place] [address] Dr. Tg Fierro PROF 14(COMP METB)on 022 Albumin [Mass/Vol] 3.8 g/dL Normal 3.4-5.0 [facility] Comment on above: Performed By: #### P T #### [facility] [address] [place] [address] Dr. Tg Fierro Albumin/Globulin [Mass ratio] 1.3 {ratio} Normal [facility] Comment on above: Performed By: #### P T #### [facility] [address] [place] [address] Dr. Tg Fierro ALP [Catalytic activity/Vol] 43 U/L Critically low 46-116 [facility] Comment on above: Performed By: #### P T #### [facility] [address] [place] [address] Dr. Tg Fierro ALT [Catalytic activity/Vol] 19 U/L Normal 14-59 [facility] Comment on above: Performed By: #### P T #### [facility] [address] [place] [address] Dr. Tg Fierro Anion gap [Moles/Vol] 13.7 mmol/L Normal [facility] Comment on above: Performed By: #### P T #### [facility] [address] [place] [address] Dr. Tg Fierro AST [Catalytic activity/Vol] 11 U/L Critically low 15-37 [facility] Comment on above: Performed By: #### P T #### [facility] [address] [place] [address] Dr. Tg Fierro Bilirubin [Mass/Vol] 0.4 mg/dL Normal 0.2-1.0 [facility] Comment on above: Performed By: #### P T #### [facility] [address] [address] [address] Tg Fierro Calcium [Mass/Vol] 9.1 mg/dL Normal 8.5-10.1 [facility] Comment on above: Performed By: #### P T #### [facility] [address] [address] [address] Tg Fierro Chloride [Moles/Vol] 104 mmol/L Normal 98-107 [facility] Comment on above: Performed By: #### P T #### [facility] [address] [place] [address] Dr. Tg Fierro CO2 [Moles/Vol] 28.5 mmol/L Normal 21.0-32.0 [facility] Comment on above: Performed By: #### P T #### [facility] [address] [place] [address] Dr. Tg Fierro Creatinine [Mass/Vol] 0.77 mg/dL Normal 0.55-1.02 [facility] Comment on above: Performed By: #### P T #### [facility] [address] [place] [address] Dr. Tg Fierro EGFR-AF NAURUAN >60 Normal >=60 [facility] Comment on above: Performed By: #### P T #### [facility] [address] [place] [address] Dr. Tg Fierro EGFR-NON AF NAURUAN >60 Normal >=60 [facility] Comment on above: Performed By: #### P T #### [facility] [address] [address] [address] Tg Fierro Globulin (S) [Mass/Vol] 3.0 g/dL Normal [facility] Comment on above: Performed By: #### P T #### [facility] [address] [place] [address] Dr. Tg Fierro Glucose [Mass/Vol] 124 mg/dL Critically high 74-106 [facility] Comment on above: Performed By: #### P T #### [facility] [address] [place] [address] Dr. Tg Fierro Potassium [Moles/Vol] 4.2 mmol/L Normal 3.5-5.1 [facility] Comment on above: Performed By: #### P T #### [facility] [address] [place] [address] Dr. Tg Fierro Protein [Mass/Vol] 6.8 g/dL Normal 6.4-8.2 [facility] Comment on above: Performed By: #### P T #### [facility] [address] [address] [address] Tg Fierro Sodium [Moles/Vol] 142 mmol/L Normal 136-145 [facility] Comment on above: Performed By: #### P T #### [facility] [address] [place] [address] Dr. Tg Fierro Urea nitrogen [Mass/Vol] 12.0 mg/dL Normal 7.0-18.0 [facility] Comment on above: Performed By: #### P T #### [facility] [address] [place] [address] Dr. Tg Fierro Urea nitrogen/Creatinine [Mass ratio] 15.6 mg/mg Normal [facility] Comment on above: Performed By: #### P T #### [facility] [address] [place] [address] Dr. Tg Fierro SED RATE [facility] 2021 SED RATE 8 mm/hr Normal <=30 [facility] Comment on above: Performed By: #### C MP #### [facility] [address] [place] [address] Dr. Tg Fierro COVID Quick Testingon 2020 Result Positive [facility] Other Vital Signs Date Time Vital Sign Value Performing Clinician Facility 07-25-2023 09:20-0500 Body height 160.02 cm Lou Glover Other [facility] Other 07-25-2023 09:20-0500 Body mass index (BMI) [Ratio] 23.91 kg/m2 Lou Glover Other [facility] Other 07-25-2023 09:20-0500 Body temperature 97.7 [degF] Lou Glover Other [facility] Other 07-25-2023 09:20-0500 Body weight 61.24 kg Lou Glover Other [facility] Other 07-25-2023 09:20-0500 Diastolic blood pressure 74 mm[Hg] Lou Glover Other [facility] Other 07-25-2023 09:20-0500 Respiratory rate 18 /min Lou Glover Other [facility] Other 07-25-2023 09:20-0500 SaO2% (BldA) [Mass fraction] 96 % Lou Glover Other [facility] Other 07-25-2023 09:20-0500 Systolic blood pressure 120 mm[Hg] Lou Glover Other [facility] Other 03-26-2023 13:15-0400 Body height 160.02 cm MD Jayme Perez Work Phone: [facility] 03-26-2023 13:15-0400 Body temperature 98.2 [degF] MD Jayme Perez Work Phone: [facility] 03-26-2023 13:15-0400 Body weight 66 kg MD Jayme Peerz Work Phone: [facility] 03-26-2023 13:15-0400 Diastolic blood pressure 71 mm[Hg] MD Jayme Perez Work Phone: [facility] 03-26-2023 13:15-0400 Heart rate 87 /min MD Jayme Perez Work Phone: [facility] 03-26-2023 13:15-0400 Respiratory rate 16 /min MD Jayme Perez Work Phone: [facility] 03-26-2023 13:15-0400 SaO2% (BldA) [Mass fraction] 97 % MD Jayme Perez Work Phone: [facility] 03-26-2023 13:15-0400 Systolic blood pressure 117 mm[Hg] MD Jayme Perez Work Phone: [facility] 05-21-2021 13:15-0500 Body height 160.02 cm Astrid Olivia Other [facility] Other 05-21-2021 13:15-0500 Body mass index (BMI) [Ratio] 23.91 kg/m2 Astrid Olivia Other [facility] Other 05-21-2021 13:15-0500 Body temperature 97.3 [degF] Astrid Ryanault Other [facility] Other 05-21-2021 13:15-0500 Body weight 61.24 kg Astrid Ryanault Other [facility] Other 05-21-2021 13:15-0500 SaO2% (BldA) [Mass fraction] 94 % Astrid Olivia Other [facility] Other Encounters Encounter Date Encounter Type Care Provider Facility Start: 08-07-2023 End: 08-07-2023 ambulatory JAYME PEREZ Not Available Start: 07-30-2023 End: 07-30-2023 ambulatory JAYME PEREZ Not Available Start: 07-25-2023 End: 07-25-2023 ambulatory Lou Glover Other [facility] Other Start: 07-25-2023 Office outpatient visit 25 minutes Lou Glover [facility] Start: 07-10-2023 End: 07-10-2023 ambulatory FELICIAERIC THORNTON Not Available Start: 07-02-2023 End: 07-02-2023 ambulatory FELICIA GILLESPIEER Not Available Start: 06-25-2023 End: 06-25-2023 ambulatory FELICIA HITCHCOCKNICOLEER Not Available Start: 06-18-2023 End: 06-18-2023 ambulatory FELICIA GILLESPIEER Not Available Start: 04-07-2023 End: 04-07-2023 Departed Referred MD Jayme Perez Work Phone: [facility] [place] Start: 04-07-2023 End: 04-08-2023 ambulatory Williams SHEPHERD Facility:[facility] Start: 03-26-2023 End: 03-26-2023 ambulatory Williams Shepherd Facility:[facility] Start: 03-26-2023 End: 03-26-2023 Patient encounter procedure MD Jayme Perez Work Phone: [facility] Work Phone: Start: 03-20-2023 End: 03-21-2023 ambulatory Williams SHEPHERD Facility[place] Start: 03-20-2023 End: 03-20-2023 Lab Drop off Williams SHEPHERD [facility] Start: 03-20-2023 End: 03-20-2023 Patient encounter procedure Williams SHEPHERD [facility] Start: 02-03-2023 End: 02-04-2023 ambulatory Williams SHEPHERD Facility: [facility] Start: 11-11-2022 End: 12-11-2022 ambulatory [...] 05-21-2021 End: 05-21-2021 ambulatory Astrid Baker Other [place] [facility] Other Start: 05-21-2021 Office outpatient visit 15 minutes Astrid Baker [facility] Procedures Date Procedure Procedure [...] Start: 09-10-2010 Cystoscopic removal of ureteric stent [email or web address] Start: 08-29-2010 Extracorporeal shock wave lithotripsy of calculus of kidney [email or web address] Start: 08-23-2010 Cystoscopic insertio n of ureteric stent [email or web address] Start: 03-02-2008 Endoscopic retrograd e pyelogram [email or web address] Start: 10-16-2004 Cystoscopic anastomo sis of ureter to bladder with insertion of stent into ureter [email or web address] Plan of Treatment Date Care Activity Detail Author Start: 07-12-2024 ambulatory Ambulatory Facility:[facility] Start: 04-07-2023 Abdomen endoscopy OR Cysto/Retro/Stent/Stone/H olmium Laser (Right) [facility] Immunizations Immunization Date Immunization Notes Care Provider Yaya oswald NEGATED: Highlighted row has not occurred!09-21-2019 influenza virus vaccine, live, attenuated, for intranasal use [employer] [facility] NEGATED: Highlighted row has not occurred!08-20-2019 influenza virus vaccine, live, attenuated, for intranasal use [employer] [facility] Payers Date Payer Category Payer Self-pay [id number] 2022 Medicare [id number] 1959 Medicare [id number] 2.1 [id number] 1959 Unknown [id number] 1946 Unknown [id number] 2.16.84 0.1.193729.3.579.2.593 1946 Unknown [id number] 2.16.84 0.1.314918.3.579.2.593 1946 Unknown [id number] 2.16.84 0.1.776278.3.579.2.593 1946 Unknown [id number] 2.16.84 0.1.923663.3.579.2.593 1946 Unknown [id number] 2.16.84 0.1.594309.3.579.2.593 1946 Unknown [id number] 2.16.84 0.1.424400.3.579.2.593 1946 Unknown [id number] 2.16.84 0.1.029542.3.579.2.593 1946 Unknown [id number] 2.16.84 0.1.127548.3.579.2.593 1946 Unknown [id number] 2.16.84 0.1.006163.3.579.2.593 1946 Unknown [id number] 2.16.84 0.1.130032.3.579.2.593 1946 Unknown [id number] 2.16.84 0.1.446881.3.579.2.593 1946 Unknown [id number] 2.16.84 0.1.392981.3.579.2.593 1946 Unknown [id number] 2.16.84 0.1.031768.3.579.2.593 1946 Unknown [id number] 2.16.8 40.1.078719.3.579.2.727 1946 Unknown [id number] 2.16.8 40.1.677450.3.579.2.727 1946 Unknown [id number] 2.16.8 40.1.811990.3.579.2.727 1946 Unknown [id number] 2.16.8 40.1.245846.3.579.2.727 1946 Unknown [id number] 2.16.84 0.1.940571.3.579.2.1259 1946 Unknown [id number] 2.16.84 0.1.464187.3.579.2.9 1946 Unknown [id number] 2.16.840 .1.104042.3.579.2.9 1946 Unknown [id number] 2.16.840 .1.060800.3.579.2.1258 1946 Unknown [id number] 2.16.840 .1.355595.3.579.2.1259 1946 Unknown [id number] 2.16.840 .1.464755.3.579.2.1259 Unknown [id number] 2.16.8 40.1.901101.3.579.2.531 Unknown [id number] 2.16.8 40.1.433462.3.579.2.531 Social History Date Type Detail Facility Sex Assigned At [facility] Other Start: 02-03-2023 End: 03-26-2023 Tobacco smoking status Ex-smoker (finding) [facility] Tobacco smoking status Never [facility] Sex Assigned At Female [facility] Start: 1945 Sex [address] Female [facility] Clinical Notes 02-21-2022 to 07-25-2023 Note [...] care as directed rx of steroid and Henderson, cool mist humidification. May use Tylenol as directed. Immediate eval for signs of respiratory distress, difficulty breathing poor PO intake, signs of dehydration, fever, or other concerning symptoms. Otherwise, follow up with PCP in 2-3 days. Patient verbalizes understanding and is agreeable to treatment plan. Patient sent home in stable condition. [facility] Other 08-11-2022 NotePROCEDURE: XR FOOT LT MIN 3 VIEWS COMPARISON: None. HISTORY: Pain in left foot FINDINGS: BONES:No acute fracture or dislocation. Mild enthesopathic spurring of the calcaneus. SOFT TISSUES:Negative. No visible soft tissue swelling. EFFUSION:None visible. OTHER: Negative. IMPRESSION: Mild enthesopathic spurring of the calcaneus Electronically authenticated by: BLANCA ZAVALA Date: 2022-02-21 [facility] App[facility]ments Appointment Date:07/12/2024 10:45:00 AM Scheduled Provider:Williams SHEPHERD MD Location:[facility] Appointment Type:URO Office Visit [facility] Evaluation + Plan note Future Appointments Appointment Date:07/12/2024 10:45:00 AM Scheduled Provider:Williams SHEPHERD MD Location:[facility] Appointment Type:URO Office Visit Diagnostic Tests Pending * Calculi Analysis Urinary [facility]20[facility]23 [facility] Other Evaluation noteNo assessment information available [facility] Work Phone: [facility] Other History general Narrative - Reported* Type Description Date Medical History Arthritis Medical History diabetes mallitus Surgical History cataract surgery [facility] Other Hospital course Narrative No data available for this section [facility] Hospital Discharge instructions No data available for this section [facility] Iron Progress note No data available for this section [facility] Iron Summary Purpose Family History No Family History [...] and content) DATE CREATED AUTHOR 12/20/2022 [facility] DATE CREATED AUTHOR AUTHOR'S ORGANIZ ATION 04/15/2023 Barth Servando [facility] DATE CREATED AUTHOR AUTHOR'S ORGANIZ ATION 06/09/2023 [facility] DATE CREATED AUTHOR AUTHOR'S ORGANIZ ATION 08/08/2023 [facility] EP[facility] Patient Care team [...] BE BASED ON THE PRIMARY CLINICAL RECORDS. [employer] [facility]. provides no warranty or guarantee of the accuracy or completeness of information in this document.
[2023-08-12] MEDS: HYDROMORPHONE HCL 0.5 MG/0.5 ML SYRINGE IV (13:08)
[2023-08-12] MEDS: ONDANSETRON PF 4 MG/2 ML VIAL IV ×2 (13:08→14:04)
[2023-08-12] MEDS: 0.9 % SODIUM CHLORIDE 1,000 ML 999 ML IV (13:08)
[2023-08-12 13:25] LABS: Basophils Absolute Auto 0.1 10^3/uL (0.0-0.1); Basophils Percent Auto 0.5 % (0.2-2.0); Eosinophils Absolute Auto 0.1 10^3/uL (0.0-0.7); Eosinophils Percent Auto 1.3 % (0.9-7.0); Hematocrit 40.5 % (36.0-48.0); Hemoglobin 13.1 g/dL (12.0-16.0); Immature Granulocytes Abs Auto 0.05 10^3/uL (0.00-0.03); Immature Granulocytes Pct Auto 0.5 % (0.0-0.5); Lymphocytes Absolute Auto 2.4 10^3/uL (1.2-3.8); Lymphocytes Percent Auto 24.3 % (20.5-60.0); Mean Corpuscular HGB Conc 32.3 g/dL (29.9-35.2); Mean Corpuscular Volume 95.7 fL (81.0-99.0); Mean Platelet Volume 9.3 fL (9.5-13.5); Monocytes Absolute Auto 0.6 10^3/uL (0.3-0.8); Monocytes Percent Auto 5.8 % (1.7-12.0); Neutrophils Absolute Auto 6.6 10^3/uL (1.4-6.5); Neutrophils Percent Auto 67.6 % (43.0-75.0); Platelet Count 401 10^3/uL (150-450); Red Blood Count 4.23 10^6/uL (4.20-5.40); White Blood Count 9.7 10^3/uL (4.0-11.0)
--- NOTE | 2023-08-12 13:35 | ED_ITS ---
HPI - Abdominal Pain General Chief Complaint: Abdominal Pain Stated Complaint: ABDOMINAL PAIN Time Seen by Provider: 08/12/23 12:39 Source: patient Mode of arrival: walk-in Limitations: no limitations History of Present Illness HPI narrative: Patient is a 78-year-old female who presents to the emergency department for the evaluation of right flank pain that began 2 days ago. Patient states she has had pain radiating from the right back into the right lower quadrant of the abdomen. She has had multiple kidney stones in the past and states this feels similar. She has been nauseous with no vomiting. No fevers or urinary symptoms. She has had lithotripsy 4-5 times in the past but states in May of last year she passed her first kidney stone, she states it was her first stone that had not required a procedure to remove it. She had no pain with that kidney stone. No medications taken prior to arrival. Related Data Previous Rx's Medication Instructions Recorded benzonatate 100 mg capsule 100 mg PO TID PRN cough #30 caps 07/15/23 cephalexin 500 mg capsule 500 mg PO Q8H 7 days #21 caps 08/12/23 ondansetron 4 mg disintegrating 4 mg PO Q6H PRN nausea and 08/12/23 tablet vomiting #12 tabs oxycodone-acetaminophen 5 mg-325 1 tab PO Q6H PRN pain 3 days #15 08/12/23 mg tablet (Percocet) tabs tamsulosin 0.4 mg capsule (Flomax) 0.4 mg PO DAILY #7 caps 08/12/23 Allergies Allergy/AdvReac Type Severity Reaction Status Date / Time ciprofloxacin [From Cipro] Allergy Severe Verified 07/15/23 12:51 Latex, Natural Rubber Allergy Severe Verified 07/15/23 12:51 metronidazole [From Metrogel] Allergy Severe Verified 07/15/23 12:51 NSAIDS (Non-Steroidal Allergy Severe Swelling Verified 07/15/23 12:51 Anti-Inflamma of Lip/Tongue/Throat Sulfa (Sulfonamide Allergy Severe Verified 07/15/23 12:51 Antibiotics) ketorolac [From Toradol] AdvReac Severe Nausea Verified 07/15/23 12:51 pioglitazone [From Actos] AdvReac Severe Nausea Verified 07/15/23 12:51 Review of Systems ROS Constitutional Denies: fever or chills Ears, nose, mouth, and throat Denies: throat pain or nasal congestion Cardiovascular Denies: chest pain Respiratory Denies: shortness of breath Gastrointestinal Reports: abdominal pain and nausea; Denies: vomiting or diarrhea Genitourinary Denies: painful urination Musculoskeletal Reports: back pain; Denies: neck pain Integumentary/Breast Denies: rash Neurological Denies: headache PFSH PFSH Social History Smoking status: Former smoker Exam Narrative Exam Narrative: Gen.: Awake, alert, in no distress Head: Normocephalic, atraumatic ENT: Moist mucous membranes Respiratory: No respiratory distress, lungs clear bilaterally Cardio: Regular rate and rhythm Gastrointestinal: Abdomen is soft, Tender to palpation in the right lower quadrant with no guarding or rebound, no CVA tenderness with diffuse mild tenderness of the right flank Extremities: Moves extremities equally Psych: Normal mood and affect Neuro: No focal neuro deficit Skin: Warm, dry, intact Constitutional Vital Signs, click to edit/add: Last Vital Signs Temp 97.8 F 08/12/23 12:32 Pulse 91 H 08/12/23 15:02 Resp 16 08/12/23 15:02 BP 116/73 08/12/23 15:02 Pulse Ox 98 08/12/23 15:02 O2 Del Method Room Air 08/12/23 15:02 Course Vital Signs Vital signs: Vital Signs Temperature 97.8 F 08/12/23 12:32 Pulse Rate 82 08/12/23 12:32 Respiratory Rate 18 08/12/23 12:32 Blood Pressure 160/66 H 08/12/23 12:32 Pulse Oximetry 100 08/12/23 12:32 Oxygen Delivery Method Room Air 08/12/23 12:32 Temperature 97.8 F 08/12/23 12:32 Pulse Rate 91 H 08/12/23 15:02 Respiratory Rate 16 08/12/23 15:02 Blood Pressure 116/73 08/12/23 15:02 Pulse Oximetry 98 08/12/23 15:02 Oxygen Delivery Method Room Air 08/12/23 15:02 MDM - Abdominal Pain MDM Narrative Medical decision making narrative: And treated with IV fluids, Dilaudid, Zofran with improvement. She is resting comfortably on reevaluation with stable vital signs, labs show mild UTI with otherwise normal white blood cell count and kidney function. CT with 5 mm stone at the right distal ureter with moderate Associated hydronephrosis. I discussed the case with Dr. Santacruz who will see the patient tomorrow at 10:30 AM in the [place] office to discuss lithotripsy. Patient is comfortable with treatment plan and will return to the ER if symptoms change or worsen. Percocet, Zofran, Flomax, Keflex given for home. Medical Records Attestation: I reviewed the patient's medical records. Lab Data Attestation: I reviewed the patient's lab results. Labs: Lab Results 08/12/23 Range/Units 12:34 WBC 9.7 (4.0-11.0) 10^3/uL RBC 4.23 (4.20-5.40) 10^6/uL Hgb 13.1 (12.0-16.0) g/dL Hct 40.5 (36.0-48.0) % MCV 95.7 (81.0-99.0) fL MCH 31.0 (26.7-34.0) pg MCHC 32.3 (29.9-35.2) g/dL RDW 14.0 (11.0-15.0) % Plt Count 401 (150-450) 10^3/uL MPV 9.3 L (9.5-13.5) fL Neut % (Auto) 67.6 (43.0-75.0) % Lymph % (Auto) 24.3 (20.5-60.0) % Rosebud % (Auto) 5.8 (1.7-12.0) % Eos % (Auto) 1.3 (0.9-7.0) % Baso % (Auto) 0.5 (0.2-2.0) % Neut # (Auto) 6.6 H (1.4-6.5) 10^3/uL Lymph # (Auto) 2.4 (1.2-3.8) 10^3/uL Rose[place] # (Auto) 0.6 (0.3-0.8) 10^3/uL Eos # (Auto) 0.1 (0.0-0.7) 10^3/uL Baso # (Auto) 0.1 (0.0-0.1) 10^3/uL Abs Immat Gran (auto) 0.05 H (0.00-0.03) 10^3/uL Imm/Tot Granulo (auto) 0.5 (0.0-0.5) % Sodium 134 L (136-145) mmol/L Potassium 3.6 (3.5-5.1) mmol/L Chloride 99 (98-107) mmol/L Carbon Dioxide 23.8 (21.0-32.0) mmol/L Anion Gap 14.8 BUN 13.0 (7.0-18.0) mg/dL Creatinine 1.09 H (0.55-1.02) mg/dL Est GFR ( Amer) 59 L (>=60) Est GFR (Non-Af Amer) 49 L (>=60) BUN/Creatinine Ratio 11.9 Glucose 202 H (74-106) mg/dL Calcium 9.8 (8.5-10.1) mg/dL Total Bilirubin 0.4 (0.2-1.0) mg/dL AST 17 (15-37) U/L ALT 23 (14-59) U/L Alkaline Phosphatase 56 (46-116) U/L Total Protein 7.5 (6.4-8.2) g/dL Albumin 3.7 (3.4-5.0) g/dL Globulin 3.8 g/dL Albumin/Globulin Ratio 1.0 Lipase 31.0 (16.0-77.0) U/L Urine Color Yellow (YELLOW) Urine Clarity Clear (CLEAR) Urine pH 6.5 (5.0-9.0) Ur Specific [place] 1.025 (1.005-1.025) Urine Protein 30 A (NEG/TRACE) mg/dL Urine Glucose (UA) Negative (NEGATIVE) mg/dL Urine Ketones 15 A (NEGATIVE) mg/dL Urine Occult Blood Negative (NEGATIVE) Urine Nitrite Negative (NEGATIVE) Urine Bilirubin Negative (NEGATIVE) Urine Urobilinogen 0.2 (0.2-1.0) EU/dL Ur Leukocyte Esterase Trace A (NEGATIVE) Urine RBC 0-2 (0-2) #/HPF Urine WBC 5-10 A (NONE SEEN) #/HPF Ur Squamous Epith Cells Few A (NONE/RARE) #/LPF Urine Crystals Seen A (None Seen) #/HPF Calcium Oxalate Crystal Few Urine Bacteria Small A (NONE SEEN) #/HPF Urine Casts None seen (NONE SEEN) #/LPF Urine Mucus Small A (NONE SEEN) Ur Culture Indicated? Yes Imaging Data CT scan - abdomen: Attestation: I have reviewed the pertinent imaging results. Radiologist's impression: ITS Impressions Abdomen/Pelvis CT 08/12/23 13:58 IMPRESSION: 1. Moderate right hydroureteronephrosis secondary to a 5 mm distal right ureteral calculus. 2. Bilateral subcentimeter nonobstructing renal calculi. Exophytic right renal cortical cyst which is not optimally characterized on this unenhanced study. 3. Stable benign left adrenal adenoma. 4. Hepatic steatosis. 5. Diverticulosis without radiographic evidence of diverticulitis. Electronically authenticated by: DOC COLLIER Date: 08/12/2023 14:15 Discharge Plan Discharge Chief Complaint: Abdominal Pain Clinical Impression: Calculus of kidney Patient Disposition: Home, Self-Care Time of Disposition Decision: 14:34 Condition: Good Mode of Transportation: Private Vehicle Prescriptions / Home Meds: New cephalexin 500 mg capsule 500 mg PO Q8H 7 Days Qty: 21 0RF oxycodone-acetaminophen [Percocet] 5-325 mg tablet 1 tab PO Q6H PRN (Reason: pain) 3 Days Qty: 15 0RF Rx Instructions: DX: N20.0 ondansetron 4 mg tablet,disintegrating 4 mg PO Q6H PRN (Reason: nausea and vomiting) Qty: 12 0RF tamsulosin [Flomax] 0.4 mg capsule 0.4 mg PO DAILY Qty: 7 0RF No Action benzonatate 100 mg capsule 100 mg PO TID PRN (Reason: cough) Qty: 30 0RF Instructions: Kidney Stones (ED), How to Strain Your Urine (ED) Stand Alone Forms: Portal Instructions Referrals: FAYE PEREZ [Primary Care Provider] - 1 week Renato Santacruz MD [Physician] - 08/13/23 10:30 am Discharge Date/Time: 08/12/23 14:55
[2023-08-12 13:36] LABS: Bilirubin Urine NEGATIVE (NEGATIVE); Blood Urine NEGATIVE (NEGATIVE); Clarity Urine CLEAR (CLEAR); Color Urine YELLOW (YELLOW); Glucose Urine UA NEGATIVE (NEGATIVE); Ketones Urine 15 mg/dL (NEGATIVE); Leukocyte Esterase Urine TRACE (NEGATIVE); Nitrite Urine NEGATIVE (NEGATIVE); Protein Urine 30 mg/dL (NEG/TRACE); Specific Gravity Urine 1.025 (1.005-1.025); Urobilinogen Urine 0.2 EU/dL (0.2-1.0); pH Urine 6.5 (5.0-9.0)
[2023-08-12 13:47] LABS: Alanine Aminotransferase 23 U/L (14-59); Albumin Level 3.7 g/dL (3.4-5.0); Alkaline Phosphatase 56 U/L (46-116); Anion Gap 14.8; Aspartate Amino Transferase 17 U/L (15-37); BUN Creatinine Ratio 11.9; Bilirubin Total 0.4 mg/dL (0.2-1.0); Calcium 9.8 mg/dL (8.5-10.1); Carbon Dioxide 23.8 mmol/L (21.0-32.0); Chloride 99 mmol/L (98-107); Estimated GFR (African America 59 (>=60); Estimated GFR (Non-African Ame 49 (>=60); Globulin 3.8 g/dL; Glucose 202 mg/dL (74-106); Potassium 3.6 mmol/L (3.5-5.1); Sodium 134 mmol/L (136-145); Total Protein 7.5 g/dL (6.4-8.2)
[2023-08-12 13:48] LABS: Urine Microscopic Indicated YES
[2023-08-12 13:57] LABS: Bacteria Urine SMALL #/HPF (NONE SEEN); Calcium Oxalate Crystals Urine FEW; Cast Seen? NONE SEEN #/LPF (NONE SEEN); Crystals Seen? Seen #/HPF (None Seen); Mucus Urine SMALL (NONE SEEN); RBC Urine 0-2 #/HPF (0-2); Squamous Epithelial Cell Urine FEW #/LPF (NONE/RARE); Urine Culture Indicated YES
--- NOTE | 2023-08-12 13:58 | CT_ITS ---
The [address] [address] Patient Name: KASEY SEN MRN: [id number] date: 1945 Sex: F Assigned Patient Location: ER Current Patient Location: ER Accession/Order Number: [id number] Exam Date: 08/12/2023 13:50 Report Date: 08/12/2023 14:15 At the request of: GUILLE IRVING Procedure: CT abdomen pelvis wo con EXAM: CT abdomen pelvis wo con HISTORY: right flank pain COMPARISON: 01/15/2023. 09/21/2019. TECHNIQUE: Unenhanced helical acquisition obtained through the abdomen and the pelvis. FINDINGS: Postsurgical change noted at the right lung base. Hepatic steatosis. Unremarkable appearance of gallbladder. No significant biliary ductal dilatation. Allowing for the lack of intravenous contrast, the spleen, pancreas and the right adrenal gland are unremarkable. Stable 1 cm benign left adrenal adenoma. Moderate right hydroureteronephrosis secondary to a 5 mm distal right ureteral calculus. Bilateral nonobstructing subcentimeter renal calculi, the largest measuring 5 mm within the superior right kidney. Exophytic 1.8 cm cysts inferolateral right renal cortex, not optimally assessed on this unenhanced study. Moderate diffuse atherosclerotic calcifications. No enlarged lymph nodes within the abdomen or the pelvis. Prior hysterectomy. The appendix is not identified. Diverticulosis without radiographic evidence diverticulitis. No ascites or focal intraperitoneal fluid collections. CT/CT abdomen pelvis wo con IMPRESSION: 1. Moderate right hydroureteronephrosis secondary to a 5 mm distal right ureteral calculus. 2. Bilateral subcentimeter nonobstructing renal calculi. Exophytic right renal cortical cyst which is not optimally characterized on this unenhanced study. 3. Stable benign left adrenal adenoma. 4. Hepatic steatosis. 5. Diverticulosis without radiographic evidence of diverticulitis. Electronically authenticated by: DOC COLLIER Date: 08/12/2023 14:15
[2023-08-12 15:02] VITALS: BP 116/73; PULSE 91; RESP 16; O2SAT 98
== END 2023-08-12 14:55 | disposition home or self-care (01) ==
PROVIDERS: Emergency Provider Emergency Medicine; PCP Family Medicine
DX: N20.0 Calculus of kidney (principal); Z87.442 Personal history of urinary calculi; Z87.891 Personal history of nicotine dependence
CPT/HCPCS: 36415; 74176; 80053; 81001; 83690; 85025; 87086; 96374; 96375; 96376; 99285; J1170; J2405

== ENCOUNTER 2023-08-13 13:30 | Outpatient (OUT) | payer MEDICARE, SELFPAY ==
--- OUTSIDE RECORDS SUMMARY | 2023-08-13 13:39 | XMS_ITS | CCD ---
Author Name Unknown Address [address] [place] [address] Organization [facility] Care Team Providers Care Mine Superintendent Name Role Phone Astrid Baker Unavailable CAYETANO, [...] anaphylaxis, Unknown (qualifier value) [facility] (1 source) sulfaSALAzine Drug Allergy rash [employer] Other (1 source) Ciprofloxacin Drug Allergy 03-30-20 13 [facility] (2 sources) Ketorolac; 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: [Toradol] Drug Allergy 03-30-20 13 [facility] (1 source) metroNIDAZOLE Drug Allergy 03-30-20 13 [facility] (1 source) NSAIDs Drug allergy (disorder) 03-30-20 13 [facility] (1 source) pioglitazone Drug Allergy 03-30-20 13 [facility] (1 source) Sulfonamides (Antibiotic) Drug allergy (disorder) 03-30-20 13 [facility] (6 sources) Ketorolac; 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: [ketorolac] Drug Allergy 03-26-20 Unknown (qualifier value), Nausea (finding) [facility] Comment on above: Severe (5 sources) Latex; 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: [Latex] Drug allergy 03-26-20 Blister of skin AND/OR mucosa (finding) [facility] (3 sources) Non-steroidal anti-inflammatory agent; 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: [NSAIDs] Drug allergy Unknown (qualifier value) [facility] (4 sources) pioglitazone; 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: [pioglitazone] Drug Allergy 03-26-20 Unknown (qualifier value) [facility] (3 sources) Sulfonamides (Antibiotic); 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: [sulfa drugs] Drug allergy Unknown (qualifier value) [facility] (2 sources) metroNIDAZOLE; 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: [metronidazole] Drug Allergy 03-26-20 Redness of Skin [facility] (2 sources) Sulfonamides (Antibiotic); 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: [Sulfa (Sulfonamide Antibiotics)] Allergy to substance 03-26-20 Rash [facility] (2 sources) NSAIDS (Non-Steroidal Anti-Inflamma; 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: [NSAIDS (Non-Steroidal Anti-Inflamma] Allergy to substance 03-26-20 Anaphylaxis [facility] (1 source) Ciprofloxacin Drug Allergy 03-26-20 [facility] (1 source) Ketorolac Drug Allergy 03-26-20 [facility] (1 source) pioglitazone Drug Allergy 03-26-20 [facility] (1 source) Non-steroidal anti-inflammatory agent Drug allergy rash [employer] Other (1 source) Substance with sulfonamide structure and antibacterial mechanism of action (substance) Drug allergy rash [employer] Other Medications Current Medications Medication Drug Class(es) [...] Oral, q6hr Start Date: 02/03/23 Status: Ordered [id number] 200 actuat albuter ol 0.09 mg/actuat metered [...] Date: 09/19/20 Status: Ordered Cyanocobalamin-Liver Extract (Vitamin Y72-Qyzxw) Tablet (1 source) Start: 03-26-2023 take 1 tablet by mouth once daily Cyanocobalamin-Live r Extract (Vitamin L59-Dmdbp) Tablet Active 1 TAB PO every day at noon March 25, 2023 11:00pm dextromethorphan hydrobromide 1.5 mg/ml / pyrilamine maleate 1.5 mg/ml oral solution (1 source) Uncompetitive W-pskylw-G-asparta te Receptor Antagonist, Sigma-1 Agonist Start: 07-25-2023 take 10 mL by mouth every eight hours Lincoln DM 7.5-7.5 MG/5ML 10 mL Orally every [...] disorder 08-17-2019 Chronic Other aftercare (1 source) 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; 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: [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 CURRNT USE ANTICOAGULANTS] Onset: 12-11-2022 Episodic Other aftercare (5 sources) Encounter for therapeutic drug level monitoring; 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: [ENC THERAPEUTC DRUG LEVL MONITORING] Onset: 10-18-2022 Episodic Other aftercare (1 source) Other intermediate manager (current) drug therapy; 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: [OTH NURSING HOME CURRENT DRUG THERAPY] Onset: 10-31-2022 Episodic [...] Resolved: 05-21-2021 Episodic Other aftercare (1 source) nursing home (current) use of oral hypoglycemic drugs; 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: [NURSING HOME USE ORAL HYPOGLYCEMIC DX] Onset: 08-12-2022 Episodic Other aftercare (1 source) nursing home (current) use of insulin; 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: [NURSING HOME CURRENT USE OF INSULIN] Onset: 02-13-2022 [...] (COVID-19) RNA TREASURE+probe Ql (Unsp spec) Negative [facility] Other COVID/FLU/RSV RT-PCR Negative [facility] [employer] Other COVID/FLU/RSV RT-PCR Positive [facility] [employer] Other Calculus Analysison 03-27-20 23 Calcium oxalate dihydrate Infrared spectroscopy (Stone) [Mass fraction] 100 % Invalid Interpretation Code [facility] Comment on above: Performed By: #### 1 [id number] #### [facility] [address] [place] [address] Color (Stone) Roper Invalid Interpretation Code [facility] Comment on above: Performed By: #### 1 [id number] #### [facility] [address] [place] [address] Composition Comment Invalid Interpretation Code [facility] Comment on above: Result Comment: Perc entage (Represents the % composition) Performed By: #### 1 [id number] #### [facility] [address] [place] [address] Disclaimer: Comment Invalid Interpretation Code [facility] Comment on above: Result Comment: This test was developed and its performance characteristics determined by [employer]. It has not been cleared or approved by the Food and Drug Administration. Performed at: [address] [id number] PhD Silvestre Esuqivel Performed By: #### 1 [id number] #### [facility] [address] [place] [address] Laboratory comment Noam (Report) Comment Invalid Interpretation Code [facility] Comment on above: Result Comment: Coco goode questions regarding Calculi Analysis contact [facility] at: [phone]. Performed By: #### 1 [id number] #### [facility] [address] [place] [address] Please Note: Comment Invalid Interpretation Code [facility] Comment on above: Result Comment: Calc javier report will follow via computer, mail or publication manager delivery. Performed By: #### 1 [id number] #### [facility] [address] [place] [address] Size (Stone) [Entitic vol] 6x4 Invalid Interpretation Code [facility] Comment on above: Result Comment: Sing le piece received. Performed By: #### 1 [id number] #### [facility] [address] [place] [address] Specimen source subject Nom Comment Invalid Interpretation Code [facility] Comment on above: Result Comment: Not provided Performed By: #### 1 [id number] #### [facility] [address] [place] [address] Stone Photo Comment Invalid Interpretation Code [facility] Comment on above: Result Comment: Phot ograph will follow under a separate cover Performed By: #### 1 [id number] #### [facility] [address] [place] [address] Weight (Stone) 49 mg Invalid Interpretation Code [facility] Comment on above: Performed By: #### 1 [id number] #### [facility] [address] [place] [address] Lab Reportson 03-27-2023 Lab Reports [id number]:127 Normal [facility] Activated partial thrombopla stin time (aPTT) in platelet poor plasma by coagulation aOrdered By: Williams Shepherd on 03-26-2023 aPTT Coag (PPP) [Time] 35.9 s 25.1-36.5 [facility] Comment on above: A hematocrit value g reater than 55% may lead to inaccurate results in coagulation testing. Patients having hematocrit values >55% require a special collection tube for coagulation studies. Please contact the laboratory at [phone] for redraw instructions. Basic Metabolic Panelon 03-14 Anion gap [Moles/Vol] 13.0 mmol/L Normal 6.0-15.0 [facility] Comment on above: Performed By: #### P T, BMP, CBC, PTT #### [address] Calcium [Mass/Vol] 10.0 mg/dL Normal 8.6-10.3 [facility] Comment on above: Result Comment: PERF ORMED BY: [place] [address] PATHOLOGIST RECEPTIONIST/TELEPHONE OPERATOR BERNIE GRAYSON M.D. Performed By: #### P T, BMP, CBC, PTT #### [address] Chloride [Moles/Vol] 104 mmol/L Normal 98-107 [facility] Comment on above: Performed By: #### P T, BMP, CBC, PTT #### [address] CO2 [Moles/Vol] 30.0 mmol/L Normal 21.0-31.0 [facility] Comment on above: Performed By: #### P T, BMP, CBC, PTT #### [address] Creatinine [Mass/Vol] 0.85 mg/dL Normal 0.60-1.20 [facility] Comment on above: Performed By: #### P T, BMP, CBC, PTT #### [place] [address] [place] GFR/1.73 sq M.predicted MDRD (S/P/Bld) [Vol rate/Area] mL/min/{1.73_m2} Normal [facility] Comment on above: Performed By: #### P T, BMP, CBC, PTT #### [address] [place] [address] [place] Glucose [Mass/Vol] 111 mg/dL High 70-100 [facility] Comment on above: Result Comment: [facility] Glucose Reference Range is dependent on time and content of last meal. Glucose of more than 200 mg/dL in a nonstressed, ambulatory subject supports the diagnosis of Diabetes Mellitus. ADA recommended reference range Performed By: #### P T, BMP, CBC, PTT #### [facility] [address] Potassium [Moles/Vol] 5.0 mmol/L Normal 3.5-5.1 [facility] Comment on above: Performed By: #### P T, BMP, CBC, PTT #### [facility] [address] Sodium [Moles/Vol] 142 mmol/L Normal 136-145 [facility] Comment on above: Performed By: #### P T, BMP, CBC, PTT #### [facility] [address] Urea nitrogen [Mass/Vol] 12 mg/dL Normal 7-25 [facility] Comment on above: Performed By: #### P T, BMP, CBC, PTT #### [facility] [address] Basophils Auto (Bld) [#/Vol] Ordered By: Williams Shepherd on 03-26-2023 Basophils (Bld) [#/Vol] 0.0 10*3/uL 0.0-0.2 [facility] Basophils/100 WBC Auto (Bld) Ordered By: Williams Shepherd on 03-26-2023 Basophils/100 WBC (Bld) 0.8 % . [facility] Calcium [Mass/volume] in Ser um or PlasmaOrdered By: Williams Shepherd on 03-26-2023 Calcium [Mass/Vol] 10.0 mg/dL 8.6-10.3 [facility] Carbon dioxide, total [Moles /volume] in Serum or PlasmaOrdered By: Williams Shepherd on 03-26-2023 CO2 [Moles/Vol] 30.0 mmol/L 21.0-31.0 [facility] Chloride [Moles/volume] in S fartun or PlasmaOrdered By: Williams Shepherd on 03-26-2023 Chloride [Moles/Vol] 104 mmol/L 98-107 [facility] Complete Blood Count Auto Di ffon 03-26-2023 Basophils (Bld) [#/Vol] 0.0 10*3/uL Normal 0.0-0.2 [facility] Comment on above: Result Comment: PERF ORMED BY: [place] [address] PATHOLOGIST RECEPTIONIST/TELEPHONE OPERATOR BERNIE GRAYSON M.D. Performed By: #### P T, BMP, CBC, PTT #### [facility] [address] [place] [address] Basophils/100 WBC (Bld) 0.8 % Normal . [facility] Comment on above: Performed By: #### P T, BMP, CBC, PTT #### [facility] [address] [place] [address] Eosinophils (Bld) [#/Vol] 0.3 10*3/uL Normal 0.0-0.45 [facility] Comment on above: Performed By: #### P T, BMP, CBC, PTT #### [address] Eosinophils/100 WBC (Bld) 4.3 % Normal . [facility] Comment on above: Performed By: #### P T, BMP, CBC, PTT #### [facility] [address] [place] [address] Erythrocyte distribution width (RBC) [Ratio] 14.8 % Normal 11.9-15.3 [facility] Comment on above: Performed By: #### P T, BMP, CBC, PTT #### [facility] [address] [place] [address] Hematocrit (Bld) [Volume fraction] 40.3 % Normal 34.0-46.4 [facility] Comment on above: Performed By: #### P T, BMP, CBC, PTT #### [facility] [address] [place] [address] [place] Hemoglobin (Bld) [Mass/Vol] 13.3 g/dL Normal 11.8-15.4 [facility] Comment on above: Performed By: #### P T, BMP, CBC, PTT #### [address] Lymphocytes (Bld) [#/Vol] 2.2 10*3/uL Normal 1.00-4.8 [facility] Comment on above: Performed By: #### P T, BMP, CBC, PTT #### [address] Lymphocytes/100 WBC (Bld) 36.9 % Normal . [facility] Comment on above: Performed By: #### P T, BMP, CBC, PTT #### [address] MCH (RBC) [Entitic mass] 31.1 pg Normal 24.7-34.3 [facility] Comment on above: Performed By: #### P T, BMP, CBC, PTT #### [address] MCV (RBC) [Entitic vol] 94.4 fL Normal 80-100 [facility] Comment on above: Performed By: #### P T, BMP, CBC, PTT #### [address] Mean Corpuscular HGB Conc 32.9 g/dL Normal 32.0-35.0 [facility] Comment on above: Performed By: #### P T, BMP, CBC, PTT #### [place] [address] [place] Monocytes (Bld) [#/Vol] 0.5 10*3/uL Normal 0.0-0.8 [facility] Comment on above: Performed By: #### P T, BMP, CBC, PTT #### [place] [address] [place] Monocytes/100 WBC (Bld) 7.8 % Normal . [facility] Comment on above: Performed By: #### P T, BMP, CBC, PTT #### [facility] [address] [place] [address] [place] Neutrophils (Bld) [#/Vol] 3.0 10*3/uL Normal 1.8-7.7 [facility] Comment on above: Performed By: #### P T, BMP, CBC, PTT #### [facility] [address] [place] [address] Neutrophils/100 WBC (Bld) 50.2 % Normal . [facility] Comment on above: Performed By: #### P T, BMP, CBC, PTT #### [facility] [address] [place] [address] NRBC% 0.3 /100{WBC} Normal 0-0.5 [facility] Comment on above: Performed By: #### P T, BMP, CBC, PTT #### [facility] [address] [place] [address] Platelet mean volume (Bld) [Entitic vol] 7.1 fL Normal 6.3-10.7 [facility] Comment on above: Performed By: #### P T, BMP, CBC, PTT #### [place] [address] [place] Platelets (Bld) [#/Vol] 363 10*3/uL Normal 150-450 [facility] Comment on above: Performed By: #### P T, BMP, CBC, PTT #### [address] RBC (Bld) [#/Vol] 4.27 10*6/uL Normal 3.60-5.00 [facility] Comment on above: Performed By: #### P T, BMP, CBC, PTT #### [place] [address] [place] WBC (Bld) [#/Vol] 5.9 10*3/uL Normal 3.8-11.6 [facility] Comment on above: Performed By: #### P T, BMP, CBC, PTT #### [place] [address] [place] Creatinine [Mass/volume] in Serum or PlasmaOrdered By: Williams Shepherd on 03-26-2023 Creatinine [Mass/Vol] 0.85 mg/dL 0.60-1.20 [facility] ECG 12 lead ECGon 03-26-2023 ECG 12 lead ECG [facility] Main [place] [id number] Electrocardiograph Report Signed Patient: Wilda Sen MR#: [id number] 8 : 1945 Acct:[id number] Age/Sex: 77 / F ADM Date: 03/26/23 Loc: PS Room: Type: [facility] Attending Dr: Williams Shepherd MD Ordering [...] By Maru Whitehead DO 03/26 1908 Normal [facility] Eosinophils Auto (Bld) [#/Vo l]Ordered By: Williams Shepherd on 03-26-2023 Eosinophils (Bld) [#/Vol] 0.3 10*3/uL 0.0-0.45 [facility] Eosinophils/100 WBC Auto (Bl d)Ordered By: Williams Shepherd on 03-26-2023 Eosinophils/100 WBC (Bld) 4.3 % . [facility] Erythrocyte distribution wid th Auto (RBC) [Ratio]Ordered By: Williams Shepherd on 03-26-2023 Erythrocyte distribution width (RBC) [Ratio] 14.8 % 11.9-15.3 [facility] Glucose [Mass/volume] in Ser um or PlasmaOrdered By: Williams Shepherd on 03-26-2023 Glucose [Mass/Vol] 111 mg/dL 70-100 [facility] Comment on above: ADA recommended refe rence rangeRandom Glucose Reference Range is dependent on time and content of last meal. Glucose of more than 200 mg/dL in a nonstressed, ambulatory subject supports the diagnosis of Diabetes Mellitus. Hematocrit Auto (Bld) [Volum e fraction]Ordered By: Williams Shepherd on 03-26-2023 Hematocrit (Bld) [Volume fraction] 40.3 % 34.0-46.4 [facility] Hemoglobin [Mass/volume] in BloodOrdered By: Williams Shepherd on 03-26-2023 Hemoglobin (Bld) [Mass/Vol] 13.3 g/dL 11.8-15.4 [facility] INR in Platelet poor plasma by Coagulation assayOrdered By: Williams Shepherd on 03-26-2023 INR Coag (PPP) [Relative time] 2.3 {INR} [facility] Comment on above: INR Therapeutic Rang [...] (Bld) [#/Vol] 5.9 10*3/uL 3.8-11.6 [facility] Lymphocytes Auto (Bld) [#/Vo l]Ordered By: Williams Shepherd on 03-26-2023 Lymphocytes (Bld) [#/Vol] 2.2 10*3/uL 1.00-4.8 [facility] Lymphocytes/100 WBC Auto (Bl d)Ordered By: Williams Shepherd on 03-26-2023 Lymphocytes/100 WBC (Bld) 36.9 % . [facility] MCH Auto (RBC) [Entitic mass ]Ordered By: Williams Shepherd on 03-26-2023 MCH (RBC) [Entitic mass] 31.1 pg 24.7-34.3 [facility] MCHC Auto (RBC) [Mass/Vol]Or dered By: Williams Shepherd on 03-26-2023 MCHC (RBC) [Mass/Vol] 32.9 g/dL 32.0-35.0 [facility] MCV Auto (RBC) [Entitic vol] Ordered By: Williams Shepherd on 03-26-2023 MCV (RBC) [Entitic vol] 94.4 fL 80-100 [facility] Monocytes Auto (Bld) [#/Vol] Ordered By: Williams Shepherd on 03-26-2023 Monocytes (Bld) [#/Vol] 0.5 10*3/uL 0.0-0.8 [facility] Monocytes/100 WBC Auto (Bld) Ordered By: Williams Shepherd on 03-26-2023 Monocytes/100 WBC (Bld) 7.8 % . [facility] Neutrophils Auto (Bld) [#/Vo l]Ordered By: Williams Shepherd on 03-26-2023 Neutrophils (Bld) [#/Vol] 3.0 10*3/uL 1.8-7.7 [facility] Neutrophils/100 WBC Auto (Bl d)Ordered By: Williams Shepherd on 03-26-2023 Neutrophils/100 WBC (Bld) 50.2 % . [facility] No Panel InformationOrdered By: Williams Shepherd on 03-26-2023 Estimated GFR (CKD-EPI) > 60.0 mL/Min [facility] Creatinine Clearance (Chem N/A [facility] Nucleated erythrocytes [Pres ence] in Blood by Automated countOrdered By: Williams Shepherd on 03-26-2023 Nucleated RBC Auto Ql (Bld) 0.3 /100{WBC} 0-0.5 [facility] Partial Thromboplastin Timeo n 03-26-2023 aPTT Coag (Bld) [Time] 35.9 s Normal 25.1-36.5 [facility] Comment on above: Result Comment: A he matocrit value greater than 55% may lead to inaccurate results in coagulation testing. Patients having hematocrit values >55% require a special collection tube for coagulation studies. Please contact the laboratory at [phone] for redraw instructions. PERFORMED BY: [place] [id number] PATHOLOGIST RECEPTIONIST/TELEPHONE OPERATOR BERNIE GRAYSON M.D. Performed By: #### P T, BMP, CBC, PTT #### [facility] [address] [place] [address] [facility] Platelet mean volume Auto (B ld) [Entitic vol]Ordered By: Williams Shepherd on 03-26-2023 Platelet mean volume (Bld) [Entitic vol] 7.1 fL 6.3-10.7 [facility] Platelets Auto (Bld) [#/Vol] Ordered By: Williams Shepherd on 03-26-2023 Platelets (Bld) [#/Vol] 363 10*3/uL 150-450 [facility] Potassium [Moles/volume] in Serum or PlasmaOrdered By: Williams Shepherd on 03-26-2023 Potassium [Moles/Vol] 5.0 mmol/L 3.5-5.1 [facility] Prothrombin Time INRon 03-26 INR Coag (PPP) [Relative time] 2.3 {INR} Normal [facility] Comment on above: Result Comment: INR [...] #### P T, BMP, CBC, PTT #### [facility] [address] [place], [place] [address] [facility] PT Coag (PPP) [Time] 26.6 s High 9.0-12.9 [facility] Comment on above: Result Comment: A he matocrit value greater than 55% may lead to inaccurate results in coagulation testing. Patients having hematocrit values >55% require a special collection tube for coagulation studies. Please contact the laboratory at [phone] for redraw instructions. Performed By: #### P T, BMP, CBC, PTT #### [facility] [address] [place], [place] [address] [facility] Prothrombin time (PT)Ordered By: Williams Shepherd on 03-26-2023 PT Coag (PPP) [Time] 26.6 s 9.0-12.9 [facility] Comment on above: A hematocrit value g reater than 55% may lead to inaccurate results in coagulation testing. Patients having hematocrit values >55% require a special collection tube for coagulation studies. Please contact the laboratory at [phone] for redraw instructions. RBC Auto (Bld) [#/Vol]Ordere d By: Williams Shepherd on 03-26-2023 RBC (Bld) [#/Vol] 4.27 10*6/uL 3.60-5.00 [facility] Serum or plasma anion gap de terminationOrdered By: Williams Shepherd on 03-26-2023 Anion gap [Moles/Vol] 13.0 mmol/L 6.0-15.0 [facility] Sodium [Moles/volume] in Ser um or PlasmaOrdered By: Williams Shepherd on 03-26-2023 Sodium [Moles/Vol] 142 mmol/L 136-145 [facility] Urea nitrogen [Mass/volume] in Serum or PlasmaOrdered By: Williams Shehperd on 03-26-2023 Urea nitrogen [Mass/Vol] 12 mg/dL 7-25 [facility] WBC Auto (Bld) [#/Vol]Ordere d By: Williams Shepherd on 03-26-2023 WBC (Bld) [#/Vol] 5.9 10*3/uL 3.8-11.6 [facility] Consultation Noteon 03-17-20 Consultation Note [id number]:12 7 [facility] Lab Reportson 02-12-2023 Lab Reports [id number]:12 7 Normal [facility] RAD - MISCon 02-12-2023 RAD - MISC [id number]:12 7 Normal [facility] RAD - CT Reporton 02-05-2023 RAD - CT Report [id number]:12 7 Normal [facility] RAD - MISCon 02-05-2023 RAD - MISC [id number]:12 7 Normal [facility] Ambulatory Visit Summaryon 0 02-03-2023 Ambulatory [...] physician if questions or concerns [facility]ul[facility] Med[facility] acarbose acetaminophen (Tylenol Extra Strength 500 [...] AGUIAR, Williams Venegas Where: [facility] [place] [facility] Patient Educationon 02-04-20 23 Patient Education [...] these instructions at home: Medicines ? Take ufli-znj-obhvoxv and prescription medicines only as told by [...] follow (more content not included)... Normal [facility] Urology Office/Clinic Noteon 02-03-2023 Urology Office/Clinic Note Chief Complaint 16 month follow up w/ CT scan HPI Staff Pt is here today for 16 month follow up w/ CT scan done @[facility] on 01/15/23. CT scan shows partially [...] MD, URL [address] [place] [address]- Additional Instructions: Patient Education Kidney Stones I, Fanny Bowen, personally scribed for Dr. Shepherd on 02/03/2023 12:04:03. . Documentation recorded by the scribe, Fanny Bowen, accurately reflects the services(s) I performed and decisions made by me. Authenticated by Dr. Shepherd on 02/03/2023 12:37:35. Portions of this record may have been created with voice recognition artificial intelligence software, specifically [employer], [email or web address] and or [employer]. Substitutions may have occurred due to the inherent limitations of voice recognition and artificial intelligence software. Problem List/Past Medical History Ongoing Abdominal pain Anticoagulated Anxiety BMI 27.0-27.9,adult Depression Diabetes Former smoker Frequent urination Heart murmur History of uterine cancer Hx of intermediate manager use of blood thin (more content not included)... Normal [facility] Comment on above: Result Comment: Elec tronically Signed By: Williams SHEPHERD MD\.br\Date and Time Signed: 02/03/23 12:39 EDT\.br\Electronically Co-Signed By: Fanny Bowen\.br\Date and Time Co-Signed: 02/03/23 12:04 EDT PROTIMEon 12-02-2022 INR Coag (PPP) [Relative time] 3.62 {INR} Normal [facility] Comment on above: Performed By: #### P T #### [facility] [address] [address] [address] Tg Fierro INR GUIDELINES SEE BELOW Normal [facility] Comment on above: Result Comment: LAURENCE RED INR: 2.0 - 3.0 CONDITIONS NOT LISTED BELOW 2.5 - 3.5 FOR PROSTHETIC HEART VALVE REPLACEMENT 2.5 - 3.5 RECURRENT THROMBOSIS Performed By: #### P T #### [facility] [address] [address] [address] Tg Fierro PT Coag (PPP) [Time] 35.7 s Critically high 9.0-11.6 [facility] Comment on above: Performed By: #### P T #### [facility] [address] [place] [address] Dr. Tg Fierro PROTIMEon 11-11-2022 INR Coag (PPP) [Relative time] 1.90 {INR} Normal [facility] Comment on above: Performed By: #### P T #### [facility] [address] [place] [address] Dr. Tg Fierro INR GUIDELINES SEE BELOW Normal [facility] Comment on above: Result Comment: LAURENCE RED INR: 2.0 - 3.0 CONDITIONS NOT LISTED BELOW 2.5 - 3.5 FOR PROSTHETIC HEART VALVE REPLACEMENT 2.5 - 3.5 RECURRENT THROMBOSIS Performed By: #### P T #### [facility] [address] [place] [address] Dr. Tg Fierro PT Coag (PPP) [Time] 19.4 s Critically high 9.0-11.6 [facility] Comment on above: Performed By: #### P T #### [facility] [address] [place] [address] Dr. Tg Fierro CBC AUTO DIFFon 10-25-2022 BASO # 0.0 103/ul Normal 0.0-0.1 [facility] Comment on above: Performed By: #### P T #### [facility] [address] [place] [address] Dr. Tg Fierro Basophils/100 WBC (Bld) 0.5 % Normal 0.2-2.0 [facility] Comment on above: Performed By: #### P T #### [facility] [address] [place] [address] Dr. Tg Fierro EO # 0.2 103/ul Normal 0.0-0.7 [facility] Comment on above: Performed By: #### P T #### [facility] [address] [place] [address] Dr. Tg Fierro Eosinophils/100 WBC (Bld) 2.7 % Normal 0.9-7.0 [facility] Comment on above: Performed By: #### P T #### [facility] [address] [place] [address] Dr. Tg Fierro Erythrocyte distribution width (RBC) [Ratio] 13.4 % Normal 11.0-15.0 [facility] Comment on above: Performed By: #### P T #### [facility] [address] [place] [address] Dr. Tg Fierro Hematocrit (Bld) [Volume fraction] 40.7 % Normal 36.0-48.0 [facility] Comment on above: Performed By: #### P T #### [facility] [address] [place] [address] Dr. Tg Fierro Hemoglobin (Bld) [Mass/Vol] 13.2 g/dL Normal 12.0-16.0 [facility] Comment on above: Performed By: #### P T #### [facility] [address] [place] [address] Dr. Tg Fierro IG # 0.03 10e3/ul Normal 0.00-0.03 [facility] Comment on above: Performed By: #### P T #### [facility] [address] [place] [address] Dr. Tg Fierro IG % 0.5 % Normal 0.0-0.5 [facility] Comment on above: Performed By: #### P T #### [facility] [address] [place] [address] Dr. Tg Fierro LYMPH # 2.1 103/ul Normal 1.2-3.8 [facility] Comment on above: Performed By: #### P T #### [facility] [address] [place] [address] Dr. Tg Fierro Lymphocytes/100 WBC (Bld) 34.9 % Normal 20.5-60.0 [facility] Comment on above: Performed By: #### P T #### [facility] [address] [place] [address] Dr. Tg Fierro MANUAL DIFF REQ NO Normal [facility] Comment on above: Performed By: #### P T #### [facility] [address] [address] [address] Tg Fierro MCH (RBC) [Entitic mass] 30.5 pg Normal 26.7-34.0 [facility] Comment on above: Performed By: #### P T #### [facility] [address] [place] [address] Dr. Tg Fierro MCHC (RBC) [Mass/Vol] 32.4 g/dL Normal 29.9-35.2 [facility] Comment on above: Performed By: #### P T #### [facility] [address] [place] [address] Dr. Tg Fierro MCV (RBC) [Entitic vol] 94.0 fL Normal 81.0-99.0 [facility] Comment on above: Performed By: #### P T #### [facility] [address] [place] [address] Dr. Tg Fierro MONO # 0.4 103/ul Normal 0.3-0.8 [facility] Comment on above: Performed By: #### P T #### [facility] [address] [place] [address] Dr. Tg Fierro Monocytes/100 WBC (Bld) 7.1 % Normal 1.7-12.0 [facility] Comment on above: Performed By: #### P T #### [facility] [address] [place] [address] Dr. Tg Fierro NEUT # 3.2 103/ul Normal 1.4-6.5 [facility] Comment on above: Performed By: #### P T #### [facility] [address] [place] [address] Dr. Tg Fierro Neutrophils/100 WBC (Bld) 54.3 % Normal 43.0-75.0 [facility] Comment on above: Performed By: #### P T #### [facility] [address] [place] [address] Dr. Tg Fierro Platelet mean volume (Bld) [Entitic vol] 8.7 fL Critically low 9.5-13.5 [facility] Comment on above: Performed By: #### P T #### [facility] [address] [address] [address] Tg Fierro PLT 295 103/ul Normal 150-450 [facility] Comment on above: Performed By: #### P T #### [facility] [address] [address] [address] Tg Fierro RBC 4.33 106/ul Normal 4.20-5.40 [facility] Comment on above: Performed By: #### P T #### [facility] [address] [place] [address] Dr. Tg Fierro WBC 5.9 103/ul Normal 4.0-11.0 [facility] Comment on above: Performed By: #### P T #### [facility] [address] [place] [address] Dr. Tg Fierro PROF 14(COMP METB)on 023 Albumin [Mass/Vol] 3.8 g/dL Normal 3.4-5.0 [facility] Comment on above: Performed By: #### C MP #### [facility] [address] [place] [address] Dr. Tg Fierro Albumin/Globulin [Mass ratio] 1.2 {ratio} Normal [facility] Comment on above: Performed By: #### C MP #### [facility] [address] [place] [address] Dr. Tg Fierro ALP [Catalytic activity/Vol] 49 U/L Normal 46-116 [facility] Comment on above: Performed By: #### C MP #### [facility] [address] [place] [address] Dr. Tg Fierro ALT [Catalytic activity/Vol] 21 U/L Normal 14-59 [facility] Comment on above: Performed By: #### C MP #### [facility] [address] [place] [address] Dr. Tg Fierro Anion gap [Moles/Vol] 13.3 mmol/L Normal [facility] Comment on above: Performed By: #### C MP #### [facility] [address] [address] [address] Tg Fierro AST [Catalytic activity/Vol] 14 U/L Critically low 15-37 [facility] Comment on above: Performed By: #### C MP #### [facility] [address] [place] [address] Dr. Tg Fierro Bilirubin [Mass/Vol] 0.5 mg/dL Normal 0.2-1.0 [facility] Comment on above: Performed By: #### C MP #### [facility] [address] [place] [address] Dr. Tg Fierro Calcium [Mass/Vol] 9.5 mg/dL Normal 8.5-10.1 [facility] Comment on above: Performed By: #### C MP #### [facility] [address] [place] [address] Dr. Tg Fierro Chloride [Moles/Vol] 104 mmol/L Normal 98-107 [facility] Comment on above: Performed By: #### C MP #### [facility] [address] [place] [address] Dr. Tg Fierro CO2 [Moles/Vol] 29.3 mmol/L Normal 21.0-32.0 [facility] Comment on above: Performed By: #### C MP #### [facility] [address] [place] [address] Dr. Tg Fierro Creatinine [Mass/Vol] 0.93 mg/dL Normal 0.55-1.02 [facility] Comment on above: Performed By: #### C MP #### [facility] [address] [place] [address] Dr. Tg Fierro EGFR-AF BRITISH >60 Normal >=60 [facility] Comment on above: Performed By: #### C MP #### [facility] [address] [place] [address] Dr. Tg Fierro EGFR-NON AF BRITISH 59 mL/min/1.73m2 Critically low >=60 [facility] Comment on above: Performed By: #### C MP #### [facility] [address] [place] [address] Dr. Tg Fierro Globulin (S) [Mass/Vol] 3.2 g/dL Normal [facility] Comment on above: Performed By: #### C MP #### [facility] [address] [address] [address] Tg Fierro Glucose [Mass/Vol] 186 mg/dL Critically high 74-106 [facility] Comment on above: Performed By: #### C MP #### [facility] [address] [address] [address] Tg Fierro Potassium [Moles/Vol] 4.6 mmol/L Normal 3.5-5.1 [facility] Comment on above: Performed By: #### C MP #### [facility] [address] [address] [address] Tg Fierro Protein [Mass/Vol] 7.0 g/dL Normal 6.4-8.2 [facility] Comment on above: Performed By: #### C MP #### [facility] [address] [place] [address] Dr. Tg Fierro Sodium [Moles/Vol] 142 mmol/L Normal 136-145 [facility] Comment on above: Performed By: #### C MP #### [facility] [address] [place] [address] Dr. Tg Fierro Urea nitrogen [Mass/Vol] 15.0 mg/dL Normal 7.0-18.0 [facility] Comment on above: Performed By: #### C MP #### [facility] [address] [address] [address] Tg Fierro Urea nitrogen/Creatinine [Mass ratio] 16.1 mg/mg Normal [facility] Comment on above: Performed By: #### C MP #### [facility] [address] [place] [address] Dr. Tg Fierro SED RATE LOWNDESVILLEERGRENon 2022 SED RATE 9 mm/hr Normal <=30 [facility] Comment on above: Performed By: #### C MP #### [facility] [address] [place] [address] Dr. Tg Fierro PROTIMEon 10-14-2022 INR Coag (PPP) [Relative time] 1.94 {INR} Normal [facility] Comment on above: Performed By: #### P T #### [facility] [address] [place] [address] Dr. Tg Fierro INR GUIDELINES SEE BELOW Normal [facility] Comment on above: Result Comment: LAURENCE RED INR: 2.0 - 3.0 CONDITIONS NOT LISTED BELOW 2.5 - 3.5 FOR PROSTHETIC HEART VALVE REPLACEMENT 2.5 - 3.5 RECURRENT THROMBOSIS Performed By: #### P T #### [facility] [address] [place] [address] Dr. Tg Fierro PT Coag (PPP) [Time] 19.8 s Critically high 9.0-11.6 [facility] Comment on above: Performed By: #### P T #### [facility] [address] [place] [address] Dr. Tg Fierro CBC AUTO DIFFon 09-24-2022 BASO # 0.1 103/ul Normal 0.0-0.1 [facility] Comment on above: Performed By: #### P T #### [facility] [address] [place] [address] Dr. Tg Fierro Basophils/100 WBC (Bld) 0.7 % Normal 0.2-2.0 [facility] Comment on above: Performed By: #### P T #### [facility] [address] [place] [address] Dr. Tg Fierro EO # 0.3 103/ul Normal 0.0-0.7 [facility] Comment on above: Performed By: #### P T #### [facility] [address] [place] [address] Dr. Tg Fierro Eosinophils/100 WBC (Bld) 3.6 % Normal 0.9-7.0 [facility] Comment on above: Performed By: #### P T #### [facility] [address] [place] [address] Dr. Tg Fierro Erythrocyte distribution width (RBC) [Ratio] 13.4 % Normal 11.0-15.0 [facility] Comment on above: Performed By: #### P T #### [facility] [address] [address] [address] Tg Fierro Hematocrit (Bld) [Volume fraction] 38.4 % Normal 36.0-48.0 [facility] Comment on above: Performed By: #### P T #### [facility] [address] [address] [address] Tg Fierro Hemoglobin (Bld) [Mass/Vol] 12.7 g/dL Normal 12.0-16.0 [facility] Comment on above: Performed By: #### P T #### [facility] [address] [address] [address] Tg Fierro IG # 0.05 10e3/ul Critically high 0.00-0.03 [facility] Comment on above: Performed By: #### P T #### [facility] [address] [place] [address] Dr. Tg Fierro IG % 0.7 % Critically high 0.0-0.5 [facility] Comment on above: Performed By: #### P T #### [facility] [address] [address] [address] Tg Fierro LYMPH # 2.6 103/ul Normal 1.2-3.8 [facility] Comment on above: Performed By: #### P T #### [facility] [address] [place] [address] Dr. Tg Fierro Lymphocytes/100 WBC (Bld) 34.2 % Normal 20.5-60.0 [facility] Comment on above: Performed By: #### P T #### [facility] [address] [place] [address] Dr. Tg Fierro MANUAL DIFF REQ NO Normal [facility] Comment on above: Performed By: #### P T #### [facility] [address] [place] [address] Dr. Tg Fierro MCH (RBC) [Entitic mass] 31.2 pg Normal 26.7-34.0 [facility] Comment on above: Performed By: #### P T #### [facility] [address] [address] [address] Tg Fierro MCHC (RBC) [Mass/Vol] 33.1 g/dL Normal 29.9-35.2 [facility] Comment on above: Performed By: #### P T #### [facility] [address] [address] [address] Tg Fierro MCV (RBC) [Entitic vol] 94.3 fL Normal 81.0-99.0 [facility] Comment on above: Performed By: #### P T #### [facility] [address] [place] [address] Dr. Tg Fierro MONO # 0.6 103/ul Normal 0.3-0.8 [facility] Comment on above: Performed By: #### P T #### [facility] [address] [place] [address] Dr. Tg Fierro Monocytes/100 WBC (Bld) 8.1 % Normal 1.7-12.0 [facility] Comment on above: Performed By: #### P T #### [facility] [address] [place] [address] Dr. Tg Fierro NEUT # 4.1 103/ul Normal 1.4-6.5 [facility] Comment on above: Performed By: #### P T #### [facility] [address] [place] [address] Dr. Tg Fierro Neutrophils/100 WBC (Bld) 52.7 % Normal 43.0-75.0 [facility] Comment on above: Performed By: #### P T #### [facility] [address] [place] [address] Dr. Tg Fierro Platelet mean volume (Bld) [Entitic vol] 8.7 fL Critically low 9.5-13.5 [facility] Comment on above: Performed By: #### P T #### [facility] [address] [place] [address] Dr. Tg Fierro PLT 278 103/ul Normal 150-450 [facility] Comment on above: Performed By: #### P T #### [facility] [address] [place] [address] Dr. Tg Fierro RBC 4.07 106/ul Critically low 4.20-5.40 [facility] Comment on above: Performed By: #### P T #### [facility] [address] [place] [address] Dr. Tg Fierro WBC 7.7 103/ul Normal 4.0-11.0 [facility] Comment on above: Performed By: #### P T #### [facility] [address] [place] [address] Dr. Tg Fierro PROF 14(COMP METB)on 023 Albumin [Mass/Vol] 3.9 g/dL Normal 3.4-5.0 [facility] Comment on above: Performed By: #### C MP #### [facility] [address] [place] [address] Dr. Tg Fierro Albumin/Globulin [Mass ratio] 1.4 {ratio} Normal [facility] Comment on above: Performed By: #### C MP #### [facility] [address] [place] [address] Dr. Tg Fierro ALP [Catalytic activity/Vol] 59 U/L Normal 46-116 [facility] Comment on above: Performed By: #### C MP #### [facility] [address] [place] [address] Dr. Tg Fierro ALT [Catalytic activity/Vol] 21 U/L Normal 14-59 [facility] Comment on above: Performed By: #### C MP #### [facility] [address] [place] [address] Dr. Tg Fierro Anion gap [Moles/Vol] 10.8 mmol/L Normal [facility] Comment on above: Performed By: #### C MP #### [facility] [address] [place] [address] Dr. Tg Fierro AST [Catalytic activity/Vol] 9 U/L Critically low 15-37 [facility] Comment on above: Performed By: #### C MP #### [facility] [address] [place] [address] Dr. Tg Fierro Bilirubin [Mass/Vol] 0.3 mg/dL Normal 0.2-1.0 [facility] Comment on above: Performed By: #### C MP #### [facility] [address] [address] [address] Tg Fierro Calcium [Mass/Vol] 9.1 mg/dL Normal 8.5-10.1 [facility] Comment on above: Performed By: #### C MP #### [facility] [address] [address] [address] Tg Fierro Chloride [Moles/Vol] 104 mmol/L Normal 98-107 [facility] Comment on above: Performed By: #### C MP #### [facility] [address] [address] [address] Tg Fierro CO2 [Moles/Vol] 28.3 mmol/L Normal 21.0-32.0 [facility] Comment on above: Performed By: #### C MP #### [facility] [address] [address] [address] Tg Fierro Creatinine [Mass/Vol] 0.86 mg/dL Normal 0.55-1.02 [facility] Comment on above: Performed By: #### C MP #### [facility] [address] [place] [address] Dr. Tg Fierro EGFR-AF BRITISH >60 Normal >=60 [facility] Comment on above: Performed By: #### C MP #### [facility] [address] [address] [address] Tg Fierro EGFR-NON AF BRITISH >60 Normal >=60 [facility] Comment on above: Performed By: #### C MP #### [facility] [address] [address] [address] Tg Fierro Globulin (S) [Mass/Vol] 2.7 g/dL Normal [facility] Comment on above: Performed By: #### C MP #### [facility] [address] [address] [address] Tg Fierro Glucose [Mass/Vol] 120 mg/dL Critically high 74-106 [facility] Comment on above: Performed By: #### C MP #### [facility] [address] [address] [address] Tg Fierro Potassium [Moles/Vol] 4.1 mmol/L Normal 3.5-5.1 [facility] Comment on above: Performed By: #### C MP #### [facility] [address] [address] [address] Tg Fierro Protein [Mass/Vol] 6.6 g/dL Normal 6.4-8.2 [facility] Comment on above: Performed By: #### C MP #### [facility] [address] [address] [address] Tg Fierro Sodium [Moles/Vol] 139 mmol/L Normal 136-145 [facility] Comment on above: Performed By: #### C MP #### [facility] [address] [address] [address] Tg Fierro Urea nitrogen [Mass/Vol] 13.0 mg/dL Normal 7.0-18.0 [facility] Comment on above: Performed By: #### C MP #### [facility] [address] [address] [address] Tg Fierro Urea nitrogen/Creatinine [Mass ratio] 15.1 mg/mg Normal [facility] Comment on above: Performed By: #### C MP #### [facility] [address] [address] [address] Tg Fierro PROTIMEon 09-24-2022 INR Coag (PPP) [Relative time] 1.35 {INR} Normal [facility] Comment on above: Performed By: #### P T #### [facility] [address] [address] [address] Tg Fierro INR GUIDELINES SEE BELOW Normal [facility] Comment on above: Result Comment: LAURENCE RED INR: 2.0 - 3.0 CONDITIONS NOT LISTED BELOW 2.5 - 3.5 FOR PROSTHETIC HEART VALVE REPLACEMENT 2.5 - 3.5 RECURRENT THROMBOSIS Performed By: #### P T #### [facility] [address] [address] [address] Tg Fierro PT Coag (PPP) [Time] 14.1 s Critically high 9.0-11.6 [facility] Comment on above: Performed By: #### P T #### [facility] [address] [address] [address] Tg Fierro SED RATE [facility] 2022 SED RATE 8 mm/hr Normal <=30 [facility] Comment on above: Performed By: #### C MP #### [facility] [address] [place] [address] Dr. Tg Fierro PROTIMEon 09-09-2022 INR Coag (PPP) [Relative time] 1.23 {INR} Normal [facility] Comment on above: Performed By: #### P T #### [facility] [address] [place] [address] Dr. Tg Fierro INR GUIDELINES SEE BELOW Normal [facility] Comment on above: Result Comment: LAURENCE RED INR: 2.0 - 3.0 CONDITIONS NOT LISTED BELOW 2.5 - 3.5 FOR PROSTHETIC HEART VALVE REPLACEMENT 2.5 - 3.5 RECURRENT THROMBOSIS Performed By: #### P T #### [facility] [address] [place] [address] Dr. Tg Fierro PT Coag (PPP) [Time] 12.9 s Critically high 9.0-11.6 [facility] Comment on above: Performed By: #### P T #### [facility] [address] [place] [address] Dr. Tg Fierro ECHOCARDIO M/2D COMPLETEon 0 09-02-2022 ECHOCARDIO M/2D COMPLETE Patient: WILDA SEN Exam Date: 09/02/2022 : 1945 Gender:F Ordering : DR JAYME PEREZ . Admission #: [id number] Family : Order #: [id number] CLICK HERE TO VIEW EXAM ECHOCARDIOGRAM REPORT [...] Bender M.D. on 09/03/2022 at 17:25 Normal [facility] GLYCOHEMOGLOBIN A1Con 2022 ADA RECOMMENDATION SEE BELOW [facility] Comment on above: Result Comment: ADA RECOMMENDED LIMIT 4.0 - 6.0 ADA THERAPEUTIC TARGET < 7.0 ACTION SUGGESTED > 7.0 Performed By: #### A 1C #### [facility] [address] [place] [address] Dr. Tg Fierro Glucose [Mass/Vol] 148 mg/dL Normal [facility] Comment on above: Performed By: #### A 1C #### [facility] [address] [place] [address] Dr. Tg Fierro HbA1c (Bld) [Mass fraction] 6.8 % Critically high 4.5-6.2 [facility] Comment on above: Performed By: #### A 1C #### [facility] [address] [place] [address] Dr. Tg Fierro CBC AUTO DIFFon 08-05-2022 BASO # 0.1 103/ul Normal 0.0-0.1 [facility] Comment on above: Performed By: #### C BC #### [facility] [address] [place] [address] Dr. Tg Fierro Basophils/100 WBC (Bld) 0.8 % Normal 0.2-2.0 [facility] Comment on above: Performed By: #### C BC #### [facility] [address] [place] [address] Dr. Tg Fierro EO # 0.5 103/ul Normal 0.0-0.7 [facility] Comment on above: Performed By: #### C BC #### [facility] [address] [place] [address] Dr. Tg Fierro Eosinophils/100 WBC (Bld) 7.3 % Critically high 0.9-7.0 [facility] Comment on above: Performed By: #### C BC #### [facility] [address] [place] [address] Dr. Tg Fierro Erythrocyte distribution width (RBC) [Ratio] 13.4 % Normal 11.0-15.0 [facility] Comment on above: Performed By: #### C BC #### [facility] [address] [place] [address] Dr. Tg Fierro Hematocrit (Bld) [Volume fraction] 37.1 % Normal 36.0-48.0 [facility] Comment on above: Performed By: #### C BC #### [facility] [address] [place] [address] Dr. Tg Fierro Hemoglobin (Bld) [Mass/Vol] 12.9 g/dL Normal 12.0-16.0 [facility] Comment on above: Performed By: #### C BC #### [facility] Laboratory [address] [place] [address] Dr. Tg Fierro IG # 0.03 10e3/ul Normal 0.00-0.03 [facility] Comment on above: Performed By: #### C BC #### [facility] [address] [place] [address] Dr. Tg Fierro IG % 0.5 % Normal 0.0-0.5 [facility] Comment on above: Performed By: #### C BC #### [facility] [address] [place] [address] Dr. Tg Fierro LYMPH # 2.3 103/ul Normal 1.2-3.8 [facility] Comment on above: Performed By: #### C BC #### [facility] [address] [place] [address] Dr. Tg Fierro Lymphocytes/100 WBC (Bld) 34.9 % Normal 20.5-60.0 [facility] Comment on above: Performed By: #### C BC #### [facility] [address] [place] [address] Dr. Tg Fierro MANUAL DIFF REQ NO Normal [facility] Comment on above: Performed By: #### C BC #### [facility] [address] [place] [address] Dr. Tg Fierro MCH (RBC) [Entitic mass] 31.0 pg Normal 26.7-34.0 [facility] Comment on above: Performed By: #### C BC #### [facility] [address] [place] [address] Dr. Tg Fierro MCHC (RBC) [Mass/Vol] 34.8 g/dL Normal 29.9-35.2 [facility] Comment on above: Performed By: #### C BC #### [facility] [address] [place] [address] Dr. Tg Fierro MCV (RBC) [Entitic vol] 89.2 fL Normal 81.0-99.0 [facility] Comment on above: Performed By: #### C BC #### [facility] [address] [place] [address] Dr. Tg Fierro MONO # 0.4 103/ul Normal 0.3-0.8 [facility] Comment on above: Performed By: #### C BC #### [facility] [address] [place] [address] Dr. Tg Fierro Monocytes/100 WBC (Bld) 6.1 % Normal 1.7-12.0 [facility] Comment on above: Performed By: #### C BC #### [facility] [address] [place] [address] Dr. Tg Fierro NEUT # 3.3 103/ul Normal 1.4-6.5 [facility] Comment on above: Performed By: #### C BC #### [facility] [address] [place] [address] Dr. Tg Fierro Neutrophils/100 WBC (Bld) 50.4 % Normal 43.0-75.0 [facility] Comment on above: Performed By: #### C BC #### [facility] [address] [place] [address] Dr. Tg Fierro Platelet mean volume (Bld) [Entitic vol] 8.6 fL Critically low 9.5-13.5 [facility] Comment on above: Performed By: #### C BC #### [facility] [address] [place] [address] Dr. Tg Fierro PLT 336 103/ul Normal 150-450 [facility] Comment on above: Performed By: #### C BC #### [facility] [address] [place] [address] Dr. Tg Fierro RBC 4.16 106/ul Critically low 4.20-5.40 [facility] Comment on above: Performed By: #### C BC #### [facility] [address] [place] [address] Dr. Tg Fierro WBC 6.4 103/ul Normal 4.0-11.0 [facility] Comment on above: Performed By: #### C BC #### [facility] [address] [place] [address] Dr. Tg Fierro PROF 14(COMP METB)on 01-23-2 023 Albumin [Mass/Vol] 3.9 g/dL Normal 3.4-5.0 [facility] Comment on above: Performed By: #### P T #### [facility] [address] [place] [address] Dr. Tg Fierro Albumin/Globulin [Mass ratio] 1.3 {ratio} Normal [facility] Comment on above: Performed By: #### P T #### [facility] [address] [address] [address] Tg Fierro ALP [Catalytic activity/Vol] 60 U/L Normal 46-116 [facility] Comment on above: Performed By: #### P T #### [facility] [address] [place] [address] Dr. Tg Fierro ALT [Catalytic activity/Vol] 21 U/L Normal 14-59 [facility] Comment on above: Performed By: #### P T #### [facility] [address] [place] [address] Dr. Tg Fierro Anion gap [Moles/Vol] 15.2 mmol/L Normal [facility] Comment on above: Performed By: #### P T #### [facility] [address] [place] [address] Dr. Tg Fierro AST [Catalytic activity/Vol] 14 U/L Critically low 15-37 [facility] Comment on above: Performed By: #### P T #### [facility] [address] [place] [address] Dr. Tg Fierro Bilirubin [Mass/Vol] 0.4 mg/dL Normal 0.2-1.0 [facility] Comment on above: Performed By: #### P T #### [facility] [address] [place] [address] Dr. Tg Fierro Calcium [Mass/Vol] 9.3 mg/dL Normal 8.5-10.1 [facility] Comment on above: Performed By: #### P T #### [facility] [address] [place] [address] Dr. Tg Fierro Chloride [Moles/Vol] 102 mmol/L Normal 98-107 [facility] Comment on above: Performed By: #### P T #### [facility] [address] [address] [address] Tg Fierro CO2 [Moles/Vol] 26.8 mmol/L Normal 21.0-32.0 [facility] Comment on above: Performed By: #### P T #### [facility] [address] [address] [address] Tg Fierro Creatinine [Mass/Vol] 0.74 mg/dL Normal 0.55-1.02 [facility] Comment on above: Performed By: #### P T #### [facility] [address] [address] [address] Tg Fierro EGFR-AF BRITISH >60 Normal >=60 [facility] Comment on above: Performed By: #### P T #### [facility] [address] [address] [address] Tg Fierro EGFR-NON AF BRITISH >60 Normal >=60 [facility] Comment on above: Performed By: #### P T #### [facility] [address] [address] [address] Tg Fierro Globulin (S) [Mass/Vol] 3.1 g/dL Normal [facility] Comment on above: Performed By: #### P T #### [facility] [address] [address] [address] Tg Fierro Glucose [Mass/Vol] 148 mg/dL Critically high 74-106 [facility] Comment on above: Performed By: #### P T #### [facility] [address] [address] [address] Tg Fierro Potassium [Moles/Vol] 4.0 mmol/L Normal 3.5-5.1 [facility] Comment on above: Performed By: #### P T #### [facility] [address] [address] [address] Tg Fierro Protein [Mass/Vol] 7.0 g/dL Normal 6.4-8.2 [facility] Comment on above: Performed By: #### P T #### [facility] [address] [place] [address] Dr. Tg Fierro Sodium [Moles/Vol] 140 mmol/L Normal 136-145 [facility] Comment on above: Performed By: #### P T #### [facility] [address] [place] [address] Dr. Tg Fierro Urea nitrogen [Mass/Vol] 12.0 mg/dL Normal 7.0-18.0 [facility] Comment on above: Performed By: #### P T #### [facility] [address] [place] [address] Dr. Tg Fierro Urea nitrogen/Creatinine [Mass ratio] 16.2 mg/mg Normal [facility] Comment on above: Performed By: #### P T #### [facility] [address] [place] [address] Dr. Tg Fierro [facility] SED RATE 30 mm/hr Normal <=30 [facility] Comment on above: Performed By: #### S EDR #### [facility] [address] [place] [address] Dr. Tg Fierro CBC AUTO DIFFon 04-15-2022 BASO # 0.1 103/ul Normal 0.0-0.1 [facility] Comment on above: Performed By: #### C BC #### [facility] [address] [place] [address] Dr. Tg Fierro Basophils/100 WBC (Bld) 0.6 % Normal 0.2-2.0 [facility] Comment on above: Performed By: #### C BC #### [facility] [address] [place] [address] Dr. Tg Fierro EO # 0.2 103/ul Normal 0.0-0.7 [facility] Comment on above: Performed By: #### C BC #### [facility] [address] [place] [address] Dr. Tg Fierro Eosinophils/100 WBC (Bld) 3.1 % Normal 0.9-7.0 [facility] Comment on above: Performed By: #### C BC #### [facility] [address] [place] [address] Dr. Tg Fierro Erythrocyte distribution width (RBC) [Ratio] 13.6 % Normal 11.0-15.0 [facility] Comment on above: Performed By: #### C BC #### [facility] [address] [place] [address] Dr. Tg Fierro Hematocrit (Bld) [Volume fraction] 42.3 % Normal 36.0-48.0 [facility] Comment on above: Performed By: #### C BC #### [facility] [address] [place] [address] Dr. Tg Fierro Hemoglobin (Bld) [Mass/Vol] 13.2 g/dL Normal 12.0-16.0 [facility] Comment on above: Performed By: #### C BC #### [facility] [address] [place] [address] Dr. Tg Fierro IG # 0.04 10e3/ul Critically high 0.00-0.03 [facility] Comment on above: Performed By: #### C BC #### [facility] [address] [place] [address] Dr. Tg Fierro IG % 0.5 % Normal 0.0-0.5 [facility] Comment on above: Performed By: #### C BC #### [facility] [address] [place] [address] Dr. Tg Fierro LYMPH # 2.5 103/ul Normal 1.2-3.8 [facility] Comment on above: Performed By: #### C BC #### [facility] [address] [place] [address] Dr. Tg Fierro Lymphocytes/100 WBC (Bld) 31.6 % Normal 20.5-60.0 [facility] Comment on above: Performed By: #### C BC #### [facility] [address] [place] [address] Dr. Tg Fierro MANUAL DIFF REQ NO Normal [facility] Comment on above: Performed By: #### C BC #### [facility] [address] [place] [address] Dr. Tg Fierro MCH (RBC) [Entitic mass] 30.3 pg Normal 26.7-34.0 [facility] Comment on above: Performed By: #### C BC #### [facility] [address] [place] [address] Dr. Tg Fierro MCHC (RBC) [Mass/Vol] 31.2 g/dL Normal 29.9-35.2 [facility] Comment on above: Performed By: #### C BC #### [facility] [address] [place] [address] Dr. Tg Fierro MCV (RBC) [Entitic vol] 97.0 fL Normal 81.0-99.0 [facility] Comment on above: Performed By: #### C BC #### [facility] [address] [place] [address] Dr. Tg Fierro MONO # 0.5 103/ul Normal 0.3-0.8 [facility] Comment on above: Performed By: #### C BC #### [facility] [address] [place] [address] Dr. Tg Fierro Monocytes/100 WBC (Bld) 6.3 % Normal 1.7-12.0 [facility] Comment on above: Performed By: #### C BC #### [facility] [address] [place] [address] Dr. Tg Fierro NEUT # 4.5 103/ul Normal 1.4-6.5 [facility] Comment on above: Performed By: #### C BC #### [facility] [address] [place] [address] Dr. Tg Fierro Neutrophils/100 WBC (Bld) 57.9 % Normal 43.0-75.0 [facility] Comment on above: Performed By: #### C BC #### [facility] [address] [place] [address] Dr. Tg Fierro Platelet mean volume (Bld) [Entitic vol] 8.6 fL Critically low 9.5-13.5 [facility] Comment on above: Performed By: #### C BC #### [facility] [address] [place] [address] Dr. Tg Fierro PLT 295 103/ul Normal 150-450 [facility] Comment on above: Performed By: #### C BC #### [facility] [address] [place] [address] Dr. Tg Fierro RBC 4.36 106/ul Normal 4.20-5.40 [facility] Comment on above: Performed By: #### C BC #### [facility] [address] [place] [address] Dr. Tg Fierro WBC 7.8 103/ul Normal 4.0-11.0 [facility] Comment on above: Performed By: #### C BC #### [facility] [address] [place] [address] Dr. Tg Fierro PROF 14(COMP METB)on 022 Albumin [Mass/Vol] 4.5 g/dL Normal 3.4-5.0 [facility] Comment on above: Performed By: #### C MP #### [facility] [address] [place] [address] Dr. Tg Fierro Albumin/Globulin [Mass ratio] 1.5 {ratio} Normal [facility] Comment on above: Performed By: #### C MP #### [facility] [address] [place] [address] Dr. Tg Fierro ALP [Catalytic activity/Vol] 62 U/L Normal 46-116 [facility] Comment on above: Performed By: #### C MP #### [facility] [address] [place] [address] Dr. Tg Fierro ALT [Catalytic activity/Vol] 25 U/L Normal 14-59 [facility] Comment on above: Performed By: #### C MP #### [facility] [address] [place] [address] Dr. Tg Fierro Anion gap [Moles/Vol] 10.6 mmol/L Normal [facility] Comment on above: Performed By: #### C MP #### [facility] [address] [place] [address] Dr. Tg Fierro AST [Catalytic activity/Vol] 12 U/L Critically low 15-37 [facility] Comment on above: Performed By: #### C MP #### [facility] [address] [place] [address] Dr. Tg Fierro Bilirubin [Mass/Vol] 0.5 mg/dL Normal 0.2-1.0 [facility] Comment on above: Performed By: #### C MP #### [facility] [address] [address] [address] Tg Fierro Calcium [Mass/Vol] 9.8 mg/dL Normal 8.5-10.1 [facility] Comment on above: Performed By: #### C MP #### [facility] [address] [place] [address] Dr. Tg Fierro Chloride [Moles/Vol] 102 mmol/L Normal 98-107 [facility] Comment on above: Performed By: #### C MP #### [facility] [address] [place] [address] Dr. Tg Fierro CO2 [Moles/Vol] 31.8 mmol/L Normal 21.0-32.0 [facility] Comment on above: Performed By: #### C MP #### [facility] [address] [place] [address] Dr. Tg Fierro Creatinine [Mass/Vol] 0.88 mg/dL Normal 0.55-1.02 [facility] Comment on above: Performed By: #### C MP #### [facility] [address] [place] [address] Dr. Tg Fierro EGFR-AF BRITISH >60 Normal >=60 [facility] Comment on above: Performed By: #### C MP #### [facility] [address] [place] [address] Dr. Tg Fierro EGFR-NON AF BRITISH >60 Normal >=60 [facility] Comment on above: Performed By: #### C MP #### [facility] [address] [place] [address] Dr. Tg Fierro Globulin (S) [Mass/Vol] 3.1 g/dL Normal [facility] Comment on above: Performed By: #### C MP #### [facility] [address] [address] [address] Tg Fierro Glucose [Mass/Vol] 187 mg/dL Critically high 74-106 [facility] Comment on above: Performed By: #### C MP #### [facility] [address] [address] [address] Tg Fierro Potassium [Moles/Vol] 4.4 mmol/L Normal 3.5-5.1 [facility] Comment on above: Performed By: #### C MP #### [facility] [address] [address] [address] Tg Fierro Protein [Mass/Vol] 7.6 g/dL Normal 6.4-8.2 [facility] Comment on above: Performed By: #### C MP #### [facility] [address] [place] [address] Dr. Tg Fierro Sodium [Moles/Vol] 140 mmol/L Normal 136-145 [facility] Comment on above: Performed By: #### C MP #### [facility] [address] [place] [address] Dr. Tg Fierro Urea nitrogen [Mass/Vol] 14.0 mg/dL Normal 7.0-18.0 [facility] Comment on above: Performed By: #### C MP #### [facility] [address] [place] [address] Dr. Tg Fierro Urea nitrogen/Creatinine [Mass ratio] 15.9 mg/mg Normal [facility] Comment on above: Performed By: #### C MP #### [facility] [address] [place] [address] Dr. Tg Fierro SED RATE [facility]on 2021 SED RATE 5 mm/hr Normal <=30 [facility] Comment on above: Performed By: #### S EDR #### [facility] [address] [place] [address] Dr. Tg Fierro CBC AUTO DIFFon 02-07-2022 BASO # 0.0 103/ul Normal 0.0-0.1 [facility] Comment on above: Performed By: #### P T #### [facility] [address] [place] [address] Dr. Tg Fierro Basophils/100 WBC (Bld) 0.6 % Normal 0.2-2.0 [facility] Comment on above: Performed By: #### P T #### [facility] [address] [place] [address] Dr. Tg Fierro EO # 0.4 103/ul Normal 0.0-0.7 [facility] Comment on above: Performed By: #### P T #### [facility] [address] [place] [address] Dr. Tg Fierro Eosinophils/100 WBC (Bld) 5.4 % Normal 0.9-7.0 [facility] Comment on above: Performed By: #### P T #### [facility] [address] [place] [address] Dr. Tg Fierro Erythrocyte distribution width (RBC) [Ratio] 13.5 % Normal 11.0-15.0 [facility] Comment on above: Performed By: #### P T #### [facility] [address] [place] [address] Dr. Tg Fierro Hematocrit (Bld) [Volume fraction] 39.4 % Normal 36.0-48.0 [facility] Comment on above: Performed By: #### P T #### [facility] [address] [place] [address] Dr. Tg Fierro Hemoglobin (Bld) [Mass/Vol] 12.8 g/dL Normal 12.0-16.0 [facility] Comment on above: Performed By: #### P T #### [facility] [address] [place] [address] Dr. Tg Fierro IG # 0.02 10e3/ul Normal 0.00-0.03 [facility] Comment on above: Performed By: #### P T #### [facility] [address] [place] [address] Dr. Tg Fierro IG % 0.3 % Normal 0.0-0.5 [facility] Comment on above: Performed By: #### P T #### [facility] [address] [place] [address] Dr. Tg Fierro LYMPH # 2.4 103/ul Normal 1.2-3.8 [facility] Comment on above: Performed By: #### P T #### [facility] [address] [place] [address] Dr. Tg Fierro Lymphocytes/100 WBC (Bld) 36.2 % Normal 20.5-60.0 [facility] Comment on above: Performed By: #### P T #### [facility] [address] [place] [address] Dr. Tg Fierro MANUAL DIFF REQ NO Normal [facility] Comment on above: Performed By: #### P T #### [facility] [address] [place] [address] Dr. Tg Fierro MCH (RBC) [Entitic mass] 31.0 pg Normal 26.7-34.0 [facility] Comment on above: Performed By: #### P T #### [facility] [address] [place] [address] Dr. Tg Fierro MCHC (RBC) [Mass/Vol] 32.5 g/dL Normal 29.9-35.2 [facility] Comment on above: Performed By: #### P T #### [facility] [address] [place] [address] Dr. Tg Fierro MCV (RBC) [Entitic vol] 95.4 fL Normal 81.0-99.0 [facility] Comment on above: Performed By: #### P T #### [facility] [address] [place] [address] Dr. Tg Fierro MONO # 0.5 103/ul Normal 0.3-0.8 [facility] Comment on above: Performed By: #### P T #### [facility] [address] [place] [address] Dr. Tg Fierro Monocytes/100 WBC (Bld) 8.0 % Normal 1.7-12.0 [facility] Comment on above: Performed By: #### P T #### [facility] [address] [address] [address] Tg Fierro NEUT # 3.3 103/ul Normal 1.4-6.5 [facility] Comment on above: Performed By: #### P T #### [facility] [address] [address] [address] Tg Fierro Neutrophils/100 WBC (Bld) 49.5 % Normal 43.0-75.0 [facility] Comment on above: Performed By: #### P T #### [facility] [address] [address] [address] Tg Fierro Platelet mean volume (Bld) [Entitic vol] 8.7 fL Critically low 9.5-13.5 [facility] Comment on above: Performed By: #### P T #### [facility] [address] [address] [address] Tg Fierro PLT 276 103/ul Normal 150-450 [facility] Comment on above: Performed By: #### P T #### [facility] [address] [address] [address] Tg Fierro RBC 4.13 106/ul Critically low 4.20-5.40 [facility] Comment on above: Performed By: #### P T #### [facility] [address] [address] [address] Tg Fierro WBC 6.7 103/ul Normal 4.0-11.0 [facility] Comment on above: Performed By: #### P T #### [facility] [address] [address] [address] Tg Fierro GLYCOHEMOGLOBIN A1Con 2021 ADA RECOMMENDATION SEE BELOW Normal [facility] Comment on above: Result Comment: ADA RECOMMENDED LIMIT 4.0 - 6.0 ADA THERAPEUTIC TARGET < 7.0 ACTION SUGGESTED > 7.0 Performed By: #### A 1C #### [facility] [address] [address] [address] Tg Fierro Glucose [Mass/Vol] 151 mg/dL Normal [facility] Comment on above: Performed By: #### A 1C #### [facility] [address] [place] [address] Dr. Tg Fierro HbA1c (Bld) [Mass fraction] 6.9 % Critically high 4.5-6.2 [facility] Comment on above: Performed By: #### A 1C #### [facility] [address] [place] [address] Dr. Tg Fierro PROF 14(COMP METB)on 022 Albumin [Mass/Vol] 3.8 g/dL Normal 3.4-5.0 [facility] Comment on above: Performed By: #### P T #### [facility] [address] [place] [address] Dr. Tg Fierro Albumin/Globulin [Mass ratio] 1.3 {ratio} Normal [facility] Comment on above: Performed By: #### P T #### [facility] [address] [place] [address] Dr. Tg Fierro ALP [Catalytic activity/Vol] 43 U/L Critically low 46-116 [facility] Comment on above: Performed By: #### P T #### [facility] [address] [place] [address] Dr. Tg Fierro ALT [Catalytic activity/Vol] 19 U/L Normal 14-59 [facility] Comment on above: Performed By: #### P T #### [facility] [address] [place] [address] Dr. Tg Fierro Anion gap [Moles/Vol] 13.7 mmol/L Normal [facility] Comment on above: Performed By: #### P T #### [facility] [address] [place] [address] Dr. Tg Fierro AST [Catalytic activity/Vol] 11 U/L Critically low 15-37 [facility] Comment on above: Performed By: #### P T #### [facility] [address] [place] [address] Dr. Tg Fierro Bilirubin [Mass/Vol] 0.4 mg/dL Normal 0.2-1.0 [facility] Comment on above: Performed By: #### P T #### [facility] [address] [address] [address] Tg Fierro Calcium [Mass/Vol] 9.1 mg/dL Normal 8.5-10.1 [facility] Comment on above: Performed By: #### P T #### [facility] [address] [address] [address] Tg Fierro Chloride [Moles/Vol] 104 mmol/L Normal 98-107 [facility] Comment on above: Performed By: #### P T #### [facility] [address] [place] [address] Dr. Tg Fierro CO2 [Moles/Vol] 28.5 mmol/L Normal 21.0-32.0 [facility] Comment on above: Performed By: #### P T #### [facility] [address] [place] [address] Dr. Tg Fierro Creatinine [Mass/Vol] 0.77 mg/dL Normal 0.55-1.02 [facility] Comment on above: Performed By: #### P T #### [facility] [address] [place] [address] Dr. Tg Fierro EGFR-AF BRITISH >60 Normal >=60 [facility] Comment on above: Performed By: #### P T #### [facility] [address] [place] [address] Dr. Tg Fierro EGFR-NON AF BRITISH >60 Normal >=60 [facility] Comment on above: Performed By: #### P T #### [facility] [address] [address] [address] Tg Fierro Globulin (S) [Mass/Vol] 3.0 g/dL Normal [facility] Comment on above: Performed By: #### P T #### [facility] [address] [place] [address] Dr. Tg Fierro Glucose [Mass/Vol] 124 mg/dL Critically high 74-106 [facility] Comment on above: Performed By: #### P T #### [facility] [facility] [address] [place] [address] Dr. Tg Fierro Potassium [Moles/Vol] 4.2 mmol/L Normal 3.5-5.1 [facility] Comment on above: Performed By: #### P T #### [facility] [address] [place] [address] Dr. Tg Fierro Protein [Mass/Vol] 6.8 g/dL Normal 6.4-8.2 [facility] Comment on above: Performed By: #### P T #### [facility] [address] [address] [address] Tg Fierro Sodium [Moles/Vol] 142 mmol/L Normal 136-145 [facility] Comment on above: Performed By: #### P T #### [facility] [address] [place] [address] Dr. Tg Fierro Urea nitrogen [Mass/Vol] 12.0 mg/dL Normal 7.0-18.0 [facility] Comment on above: Performed By: #### P T #### [facility] [address] [place] [address] Dr. Tg Fierro Urea nitrogen/Creatinine [Mass ratio] 15.6 mg/mg Normal [facility] Comment on above: Performed By: #### P T #### [facility] [address] [place] [address] Dr. Tg Fierro SED RATE [facility] 2021 SED RATE 8 mm/hr Normal <=30 [facility] Comment on above: Performed By: #### C MP #### [facility] [address] [place] [address] Dr. Tg Fierro COVID Quick Testingon 2020 Result Positive [employer] Other Vital Signs Date Time Vital Sign Value Performing Clinician Facility 07-25-2023 09:20-0500 Body height 160.02 cm Lou Glover Other [facility] Other 07-25-2023 09:20-0500 Body mass index (BMI) [Ratio] 23.91 kg/m2 Lou Glover Other [facility] [facility] Other 07-25-2023 09:20-0500 Body temperature 97.7 [degF] Lou Glover Other [facility] Other 07-25-2023 09:20-0500 Body weight 61.24 kg Lou Glover Other [facility] Other 07-25-2023 09:20-0500 Diastolic blood pressure 74 mm[Hg] Lou Glover Other [facility] Other 07-25-2023 09:20-0500 Respiratory rate 18 /min Lou Glover Other [facility] Other 07-25-2023 09:20-0500 SaO2% (BldA) [Mass fraction] 96 % Lou Glover Other [facility] Other 07-25-2023 09:20-0500 Systolic blood pressure 120 mm[Hg] Lou Glover Other [employer] Other 03-26-2023 13:15-0400 Body height 160.02 cm MD Jayme Perez Work Phone: [facility] 03-26-2023 13:15-0400 Body temperature 98.2 [degF] MD Jayme Perez Work Phone: [facility] 03-26-2023 13:15-0400 Body weight 66 kg MD Jayme Perez Work Phone: [facility] 03-26-2023 13:15-0400 Diastolic blood pressure 71 mm[Hg] MD Jayme Perez Work Phone: [facility] 03-26-2023 13:15-0400 Heart rate 87 /min MD Jayme Perez Work Phone: [facility] 03-26-2023 13:15-0400 Respiratory rate 16 /min MD Jayme Perez Work Phone: [facility] 03-26-2023 13:15-0400 SaO2% (BldA) [Mass fraction] 97 % MD Jayme Perez Work Phone: [facility] 03-26-2023 13:15-0400 Systolic blood pressure 117 mm[Hg] MD Jayme Perez Work Phone: [facility] 05-21-2021 13:15-0500 Body height 160.02 cm Astrid Olivia Other [employer] Other 05-21-2021 13:15-0500 Body mass index (BMI) [Ratio] 23.91 kg/m2 Astrid Olivia Other [facility] Other 05-21-2021 13:15-0500 Body temperature 97.3 [degF] Astrid Ryanault Other [facility] Other 05-21-2021 13:15-0500 Body weight 61.24 kg Astrid Ryanault Other [facility] Other 05-21-2021 13:15-0500 SaO2% (BldA) [Mass fraction] 94 % Astrid Olivia Other [employer] Other Encounters Encounter Date Encounter Type Care Provider Facility Start: 08-07-2023 End: 08-07-2023 ambulatory JAYME PEREZ Not Available Start: 07-30-2023 End: 07-30-2023 ambulatory JAYME PEREZ Not Available Start: 07-25-2023 End: 07-25-2023 ambulatory Lou Glover Other [employer] Other Start: 07-25-2023 Office outpatient visit 25 minutes Lou Glover [facility] Start: 07-10-2023 End: 07-10-2023 ambulatory FELICIAERIC THORNTON Not Available Start: 07-02-2023 End: 07-02-2023 ambulatory FLEICIA GILLESPIEER Not Available Start: 06-25-2023 End: 06-25-2023 ambulatory FELICIA HITCHCOCKNICOLEER Not Available Start: 06-18-2023 End: 06-18-2023 ambulatory FELICIA GILLESPIEER Not Available Start: 04-07-2023 End: 04-07-2023 Departed Referred MD Jayme Perez Work Phone: [facility] [place] Start: 04-07-2023 End: 04-08-2023 ambulatory Williams SHEPHERD Facility:[facility] Start: 03-26-2023 End: 03-26-2023 ambulatory Williams Shepherd Facility:[facility] Start: 03-26-2023 End: 03-26-2023 Patient encounter procedure MD Jayme Perez Work Phone: [facility] Work Phone: Start: 03-20-2023 End: 03-21-2023 ambulatory Williams SHEPHERD Facility:[facility] Start: 03-20-2023 End: 03-20-2023 Lab Drop off Williams SHEPHERD [facility] Start: 03-20-2023 End: 03-20-2023 Patient encounter procedure Williams SHEPHERD [facility] Start: 02-03-2023 End: 02-04-2023 ambulatory [...] 05-21-2021 End: 05-21-2021 ambulatory Astrid Baker Other [employer] Other Start: 05-21-2021 Office outpatient visit 15 minutes Astrid Baker [facility] Procedures Date Procedure [...] Start: 09-10-2010 Cystoscopic removal of ureteric stent [facility] Start: 08-29-2010 Extracorporeal shock wave lithotripsy of calculus of kidney [facility] Start: 08-23-2010 Cystoscopic insertio n of ureteric stent [facility] Start: 03-02-2008 Endoscopic retrograd e pyelogram [facility] Start: 10-16-2004 Cystoscopic anastomo sis of ureter to bladder with insertion of stent into ureter [facility] Plan of Treatment Date Care Activity Detail Author Start: 07-12-2024 ambulatory Ambulatory Facility:[facility] Start: 04-07-2023 Abdomen endoscopy OR Cysto/Retro/Stent/Stone/H olmium Laser (Right) [facility] Immunizations Immunization Date Immunization Notes Care Provider Yaya oswald NEGATED: Highlighted row has not occurred!09-21-2019 influenza virus vaccine, live, attenuated, for intranasal use [facility] NEGATED: Highlighted row has not occurred!08-20-2019 influenza virus vaccine, live, attenuated, for intranasal use [facility] Payers Date Payer Category Payer Self-pay [id number] 2022 Medicare [id number] 1958 Medicare [id number] 2.1 [id number] 1959 Unknown [id number] 1946 Unknown [id number] 2.16.84 0.1.886150.3.579.2.593 1946 Unknown [id number] 2.16.84 0.1.547693.3.579.2.593 1946 Unknown [id number] 2.16.84 0.1.134018.3.579.2.593 1946 Unknown [id number] 2.16.84 0.1.494316.3.579.2.593 1946 Unknown [id number] 2.16.84 0.1.838328.3.579.2.593 1946 Unknown [id number] 2.16.84 0.1.811801.3.579.2.593 1946 Unknown [id number] 2.16.84 0.1.929456.3.579.2.593 1946 Unknown [id number] 2.16.84 0.1.567016.3.579.2.593 1946 Unknown [id number] 2.16.84 0.1.239830.3.579.2.593 1946 Unknown [id number] 2.16.84 0.1.285750.3.579.2.593 1946 Unknown [id number] 2.16.84 0.1.212810.3.579.2.593 1946 Unknown [id number] 2.16.84 0.1.517824.3.579.2.593 1946 Unknown [id number] 2.16.84 0.1.476817.3.579.2.593 1946 Unknown [id number] 2.16.8 40.1.637686.3.579.2.727 1946 Unknown [id number] 2.16.8 40.1.179888.3.579.2.727 1946 Unknown [id number] 2.16.8 40.1.937660.3.579.2.727 1946 Unknown [id number] 2.16.8 40.1.599124.3.579.2.727 1946 Unknown [id number] 2.16.84 0.1.078941.3.579.2.1259 1946 Unknown [id number] 2.16.84 0.1.990997.3.579.2.9 1946 Unknown [id number] 2.16.840 .1.088638.3.579.2.9 1946 Unknown [id number] 2.16.840 .1.892867.3.579.2.1258 1946 Unknown [id number] 2.16.840 .1.445222.3.579.2.1259 1946 Unknown [id number] 2.16.840 .1.385903.3.579.2.1259 Unknown [id number] 2.16.8 40.1.157698.3.579.2.531 Unknown [id number] 2.16.8 40.1.726912.3.579.2.531 Social History Date Type Detail Facility Sex Assigned At [employer] Other Start: 02-03-2023 End: 03-26-2023 Tobacco smoking status Ex-smoker (finding) [facility] Tobacco smoking status Never [facility] Sex Assigned At Female [facility] Start: 1945 Sex Assigned At Female [facility] Clinical Notes 02-21-2022 to 07-25-2023 Note Date [...] care as directed rx of steroid and [place], cool mist humidification. May use Tylenol as directed. Immediate eval for signs of respiratory distress, difficulty breathing poor PO intake, signs of dehydration, fever, or other concerning symptoms. Otherwise, follow up with PCP in 2-3 days. Patient verbalizes understanding and is agreeable to treatment plan. Patient sent home in stable condition. [employer] Other 08-11-2022 NotePROCEDURE: XR FOOT LT MIN 3 VIEWS COMPARISON: None. HISTORY: Pain in left foot FINDINGS: BONES:No acute fracture or dislocation. Mild enthesopathic spurring of the calcaneus. SOFT TISSUES:Negative. No visible soft tissue swelling. EFFUSION:None visible. OTHER: Negative. IMPRESSION: Mild enthesopathic spurring of the calcaneus Electronically authenticated by: BLANCA ZAVALA Date: 2022-02-21 [facility]ments Appointment Date:07/12/2024 10:45:00 AM Scheduled Provider:Williams SHEPHERD MD Location:[facility] Appointment Type:URO Office Visit [facility] Evaluation + Plan note Future Appointments Appointment Date:07/12/2024 10:45:00 AM Scheduled Provider:Williams SHEPHERD MD Location:[facility] Appointment Type:URO Office Visit Diagnostic Tests Pending * Calculi Analysis [facility] Other Evaluation noteNo assessment information available [facility] Work Phone: [facility] Other History general Narrative - Reported* Type Description Date Medical History Arthritis Medical History diabetes mallitus Surgical History cataract surgery [employer] Other Hospital course Narrative No data available for this section [facility] Hospital Discharge instructions No data available for this section [facility] Progress note No data available for this section [facility] Summary Purpose Family History No Family History [...] AUTHOR AUTHOR'S ORGANIZ ATION 04/15/[address] [facility] DATE CREATED AUTHOR AUTHOR'S ORGANIZ ATION 06/09/2023 [facility] DATE CREATED AUTHOR AUTHOR'S ORGANIZ ATION 08/08/2023 [facility] EPIC Patient Care team [...] BE BASED ON THE PRIMARY CLINICAL RECORDS. [employer] [facility]. provides no warranty or guarantee of the accuracy or completeness of information in this document.
== END 2023-08-13 13:31 | disposition home or self-care (01) ==
PROVIDERS: PCP Family Medicine; Visit Provider Urology
DX: Z01.818 Encounter for other preprocedural examination (principal); N13.2 Hydronephrosis with renal and ureteral calculous obstruction; I48.91 Unspecified atrial fibrillation

== ENCOUNTER 2023-08-14 07:39 | Day surgery (SDC) | payer MEDICARE, SELFPAY ==
[2023-08-13 14:11] VITALS: BP 103/56; PULSE 110; RESP 18; TEMP 36.3; O2SAT 98; BMI 24.3
[2023-08-14] VITALS (23 sets, daily range): BP systolic 96–131; BP diastolic 45–72; PULSE 81–99; RESP 14–36; TEMP 35.7–36.2; O2SAT 58–100; BMI 24.3
--- OUTSIDE RECORDS SUMMARY | 2023-08-14 07:41 | XMS_ITS | CCD ---
Author Name Unknown Address [address] [place] [address] Organization [facility] Care Team Providers Care Rocket Scientist Name Role Phone Astrid Baker Unavailable CAYETANO, DR CRUM Consulting Unavailable CAYETANO, DR CRUM Attending Unavailable MONTEIRO, DR CRUM Admitting Unavailable HEMEYER ., DR MCKINNEY Primary Care Unavailable HEMEYER ., DR MCKINNEY Consulting Unavailable HEMEYER ., DR MCKINNEY Admitting Unavailable HEMEYER ., DR MCKINNEY Attending Unavailable HEMEYER ., DR MCKINNEY Primary Care Unavailable MONTEIRO, DR CRUM Attending Unavailable MONTEIRO, [...] ., EDINA Primary Care Unavailable HEMEYER, JAYME Hazel Primary Care Physician Unavail able MD Jayme Perez Primary Care Provider [phone] MD Williams Shepherd Attending Provider Williams Shepherd Admitting Unavailable Williams Shepehrd Attending Unavailable Jayme Perez Primary Care Unavailable Williams Shepherd Attending Unavailable Hemeyer, Jayme Hazel Primary Care Unavailable Williams Shepherd Admitting Unavailable Lou Glover Unavailable FELICIA THORNTON Attending Unavailable HEMEYER, JAYME Hazel Attending Unavailable HEMEYER, JAYME Hazel Attending Unavailable FELICIA THORNTON Attending Unavailable HILLARY, FELICIA Mejias Attending Unavailable FELICIA THORNTON Attending Unavailable Renato SANTACRUZ Attending Unavailable COOK, Williams Venegas Attending Unavailable COOK, Williams P Attending Unavailable COOK, Williams P Attending Unavailable COOK, Williams P Admitting Unavailable COOK, Williams Venegas Attending Unavailable Renato SANTACRUZ Attending Unavailable COOK, Williams P Attending Unavailable COOKVargasWilliams P Attending Unavailable Allergies Allergy Classification Reported Allergen(s) Allergy Type Date of Onset Reaction(s) Facility (7 sources) Ciprofloxacin; 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: [ciprofloxacin] Drug Allergy 03-26-20 23 anaphylaxis, Unknown (qualifier value) [facility] (1 source) sulfaSALAzine Drug Allergy rash [employer] Other (1 source) Ciprofloxacin Drug Allergy 03-30-20 13 [facility] (2 sources) Ketorolac; 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: [Toradol] Drug Allergy 03-30-20 13 [facility] (2 sources) metroNIDAZOLE; 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: [MetroGel] Drug Allergy 03-30-20 13 [facility] (1 source) NSAIDs Drug allergy (disorder) 03-30-20 13 [facility] (2 sources) pioglitazone; 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: [Actos] Drug Allergy 03-30-20 13 [facility] (1 source) Sulfonamides (Antibiotic) Drug allergy (disorder) 03-30-20 13 [facility] (8 sources) Ketorolac; 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: [ketorolac] Drug Allergy 03-26-20 Unknown (qualifier value), Nausea (finding) [facility] Comment on above: Severe (6 sources) Latex; 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: [latex] Drug allergy 03-26-20 Blister of skin AND/OR mucosa (finding) [facility] (4 sources) Non-steroidal anti-inflammatory agent; 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: [NSAIDs] Drug allergy Unknown (qualifier value) [facility] (6 sources) pioglitazone; 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: [pioglitazone] Drug Allergy 03-26-20 Unknown (qualifier value) [facility] (4 sources) Sulfonamides (Antibiotic); 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: [sulfa drugs] Drug allergy Unknown (qualifier value) [facility] (3 sources) metroNIDAZOLE; 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: [metronidazole] Drug Allergy 03-26-20 Redness of Skin [place] (2 sources) Sulfonamides (Antibiotic); 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: [Sulfa (Sulfonamide Antibiotics)] Allergy to substance 03-26-20 Rash [place] (2 sources) NSAIDS (Non-Steroidal Anti-Inflamma; 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: [NSAIDS (Non-Steroidal Anti-Inflamma] Allergy to substance 03-26-20 Anaphylaxis [place] (1 source) Ciprofloxacin Drug Allergy 03-26-20 [place] [facility] (1 source) Ketorolac Drug Allergy 03-26-20 [place] [facility] (1 source) pioglitazone Drug Allergy 03-26-20 [place] [facility] (1 source) Non-steroidal anti-inflammatory agent Drug allergy rash [employer] Other (1 source) Substance with sulfonamide structure and antibacterial mechanism of action (substance) Drug allergy rash [employer] Other Medications Current Medications Medication Drug Class(es) Dates Sig (Normalized) Sig (Original) acarbose 100 mg oral tablet (6 sources) alpha-Glucosidase Inhibitor Start: 08-17-2019 take 1 tablet by mouth three times [...] Oral, q6hr Start Date: 02/03/23 Status: Ordered acetaminophen 325 mg / oxyCODONE hydrochloride 5 mg oral tablet (1 source) Opioid Agonist Start: 08-13-2023 take 1 tablet by mouth every six hours Percocet 5 mg-325 mg oral tablet 1 tab(s), Oral, q6hr, Refill(s) 0 Start Date: 08/13/23 Status: Ordered [id number] 200 actuat albuterol 0.09 mg/actuat metered dose inhaler (2 sources) beta2-Adrenergi c Agonist Start: 05-21-2021 Start: 05-21-2021 take 2 puff(s) by in halation every four hours as needed Albuterol Sulfate HFA 108 (90 Base) MCG/ACT 2 puffs as needed Inhalation every 4 hrs May, Not-Taking/PRN aspirin 81 mg oral tablet (3 sources) Platelet Aggregation Inhibitor, Nonsteroidal Anti-inflammatory Drug Start: 08-17-2019 take 1 mg by mouth once daily aspirin 81 mg oral tablet mg tab(s), Oral, Daily, Refills(s) 0 Start Date: 08/17/19 Status: Ordered calcium citrate 950 mg oral tablet (4 sources) Start: 03-26-2023 take 200 mg by mouth three times daily Calcium Citrate Active 200 MG PO Three times daily March 25, 2023 11:00pm Start: 08-17-2019 take 250 mg by mouth three times daily calcium citrate 250 mg, Oral, TID, Refills(s) 0 Start Date: 08/17/19 Status: Ordered Start: 08-17-2019 calcium citrat e Oral, BID, Refills(s) 0 Start Date: 08/17/19 Status: Ordered cephalexin 500 mg oral capsule (1 source) Cephalosporin Antibacterial Start: 08-13-2023 End: 08-20-2023 take 1 mg by mouth every eight hours Keflex 500 mg Cap mg cap(s), Oral, q8hr, X 7 day(s), Refills(s) 0 Start Date: 08/13/23 Stop Date: 08/20/23 Status: Ordered cholecalciferol 0.125 mg oral tablet [...] daily March 25, 2023 11:00pm Cinnamon Preparation (3 sources) Non-Standardized Food Allergenic Extract Start: 09-19-2020 take 1000 mg by mouth once daily cinnamon 1,000 mg, Oral, Daily Start Date: 09/19/20 Status: Ordered Start: 09-19-2020 take 1 mg by mouth twice daily cinnamon mg, Oral, BID Start Date: 09/19/20 Status: Ordered Cyanocobalamin-Liver Extract (Vitamin T73-Ojeve) Tablet (1 source) Start: 03-26-2023 take 1 tablet by mouth once daily Cyanocobalamin-Liver Extract (Vitamin E82-Jtfri) Tablet Active 1 TAB PO every day at noon March 25, 2023 11:00pm dextromethorphan hydrobromide 1.5 mg/ml / pyrilamine maleate 1.5 mg/ml oral solution (1 source) Uncompetitive H-rkzzbl-W-aspar muñoz Receptor Antagonist, Sigma-1 Agonist Start: 07-25-2023 take 10 mL by mouth every eight hours [place] DM 7.5-7.5 MG/5ML 10 mL Orally every 8 hours for 5 days Jul, Active esomeprazole 20 mg oral tablet (4 sources) Proton Pump Inhibitor Start: 08-17-2019 take 20 mg by mouth once daily [...] 11:00pm 4 ml golimumab 12.5 mg/ml injection (4 sources) Tumor Necrosis Factor Sergey Start: 03-26-2023 Golimumab (Simponi Aria) 12.5 mg/mL Solution Active 12.5 MG IV EVERY 8 WEEKS March 25, 2023 11:00pm may 13 Start: 08-20-2019 Simponi Aria m g/kg, IV, q4wk, Refills(s) 0 Start Date: 08/20/19 Status: Ordered Insulin Glargine (2 sources) Insulin Analog Lantus Active metFORMIN hydrochloride 1000 mg oral tablet (6 sources) Biguanide Start: 08-17-2019 take 1000 mg by mouth twice daily Metformin Active 1000 MG PO Twice daily March 25, 2023 11:00pm Start: 08-17-2019 metformin Oral , Refills(s) 0 Start Date: 08/17/19 Status: Ordered metFORMIN HCl Ac tive methotrexate 2.5 mg/ml oral solution (6 sources) Folate Analog Metabolic Inhibitor Start: 03-26-2023 take 1.5 mg by mouth every week Methotrexate Active 1.5 MG PO every week March 25, 2023 11:00pm Start: 08-17-2019 take 5 mg by mouth every week methotrexate 5 mg, Oral, qWeek, Refills(s) 0 Start Date: 08/17/19 Status: Ordered Start: 08-17-2019 methotrexate R efills(s) 0 Start Date: 08/17/19 Status: Ordered Methotrexate Sod ium Active methylPREDNISolone 4 mg oral tablet (1 source) Corticosteroid Start: 07-25-2023 methylPREDNISo lone 4 MG as directed Orally for 6 Jul, Active Misc Medication (3 sources) Start: 09-19-2020 Misc Medicatio n See Instructions, Oral Start Date: 09/19/20 Status: Ordered Start: 09-19-2020 [facility] Medicatio n ironchlate Start Date: 09/19/20 Status: Ordered Multi Vitamins oral tablet (3 sources) Start: 09-19-2020 take 1 tablet by mouth once daily Multi Vitamins oral tablet 1 tab(s), Oral, Daily, Refill(s) 0 Start Date: 09/19/20 Status: Ordered Start: 09-19-2020 Multi Vitamins oral tablet Oral, Daily, Refill(s) 0 Start Date: 09/19/20 Status: Ordered ondansetron 4 mg oral tablet (1 source) Serotonin-3 Receptor Antagonist Start: 08-13-2023 ondansetron 4 mg Tab mg tab(s), Oral, As Directed, Refills(s) 0 Start Date: 08/13/23 Status: Ordered predniSONE 2.5 mg oral tablet (6 sources) Start: 03-26-2023 take 2.5 mg by mouth once daily at bedtime Prednisone Active 2.5 MG PO Daily at bedtime March 25, 2023 11:00pm Start: 08-17-2019 take 5 mg by mouth once daily predniSONE 5 mg, Oral, Daily, Refills(s) 0 Start Date: 08/17/19 Status: Ordered Start: 08-17-2019 predniSONE Ora l, Daily, Refills(s) 0 Start Date: 08/17/19 Status: Ordered predniSONE Not-T aking/PRN tamsulosin hydrochloride 0.4 mg oral capsule (1 source) alpha-Adrenergic Sergey Start: 08-13-2023 End: 08-20-2023 take 1 mg by mouth once daily tamsulosin 0.4 mg Cap mg cap(s), Oral, Daily, X 7 day(s), Refills(s) 0 Start Date: 08/13/23 Stop Date: 08/20/23 Status: Ordered vitamin B12 (3 sources) Vitamin B12 Start: 08-17-2019 take 3000 mg by mouth once daily Vitamin B12 3,000 mg, Oral, Daily, Refills(s) 0 Start Date: 08/17/19 Status: Ordered Start: 08-17-2019 Vitamin B12 Re fills(s) 0 Start Date: 08/17/19 Status: Ordered Vitamin D3 (3 sources) Start: 08-17-2019 Vitamin D3 1,0 00 unit(s), Daily, Refills(s) 0 Start Date: 08/17/19 Status: Ordered Start: 08-17-2019 Vitamin D3 Alexandra ly, Refills(s) 0 Start Date: 08/17/19 Status: Ordered warfarin sodium 4 mg oral tablet (4 sources) Vitamin K Antagonist Start: 03-26-2023 take 4 mg by mouth once daily at bedtime Warfarin Active 4 MG PO Daily at bedtime March 25, 2023 11:00pm Start: 02-03-2023 take 3 mg by mouth once daily warfarin 3 mg, Oral, Daily Start Date: 02/03/23 Status: Ordered Start: 02-03-2023 warfarin Oral, Daily Start Date: [...] Date Documented Da te Episodic/Chronic Abdominal pain (5 sources) Abdominal pain; 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: [Unspecified abdominal pain] Onset: 08-13-2023 09-21-2019 Episodic Anxiety disorders (3 sources) Anxiety 08-17-2019 Chronic Calculus of urinary tract (8 sources) Kidney stone; 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: [Calculus of kidney] Onset: 03-20-2023 Episodic Cancer of uterus (3 sources) History of malignant neoplasm of uterine body 08-17-2019 Episodic Cardiac dysrhythmias (6 sources) 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; 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: [Atrial fibrillation] Onset: 10-14-2022 Chronic Congestive heart failure; nonhypertensive (1 source) Chronic diastolic (congestive) heart failure; 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: [CHRONIC DIASTOLIC HEART FAILURE] Onset: 09-05-2022 Chronic Diabetes mellitus with complications (4 sources) Type 2 diabetes mellitus with diabetic chronic kidney disease; 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: [TYPE 2 DM W/DIABETIC CKD] Onset: 08-09-2022 Chronic Diabetes mellitus without complication (3 sources) Diabetes mellitus 08-17-2019 Chronic Genitourinary symptoms and ill-defined conditions (6 sources) Increased frequency of urination; 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: [Nocturia] 09-19-2020 Episodic Heart valve disorders (1 source) Nonrheumatic aortic (valve) stenosis; 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: [NONRHEUMATIC AORTIC VALVE STENOSIS] Onset: 09-05-2022 Chronic Heart valve disorders (4 sources) Cardiac murmur, unspecified; 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: [Heart murmur] Onset: 09-05-2022 08-17-2019 Episodic Mood disorders (3 sources) Depressive disorder 08-17-2019 Chronic Other aftercare (1 source) 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; 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: [LONGTERM CURRNT USE ANTICOAGULANTS] Onset: 12-11-2022 Episodic Other aftercare (5 sources) Encounter for therapeutic drug level monitoring; 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: [ENC THERAPEUTC DRUG LEVL MONITORING] Onset: 10-18-2022 Episodic Other aftercare (1 source) Other ad terminal makeup operator (current) drug therapy; 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: [OTH CLINICAL LAB SCIENTIST CURRENT DRUG THERAPY] Onset: 10-31-2022 Episodic Other aftercare (1 source) Long-term current use of anticoagulant; 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: [penitentiary (current) use of anticoagulants] Onset: 08-13-2023 Episodic Other and ill-defined heart disease (4 sources) Cardiomegaly; 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: [CARDIOMEGALY] Onset: 09-02-2022 Chronic Other diseases of kidney and ureters (1 source) Urinary tract obstruction; 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: [Hydronephrosis with renal and ureteral calculous obstruction] Onset: 08-13-2023 Episodic Other inflammatory condition of skin (5 sources) Other psoriatic arthropathy; 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: [OTHER PSORIATIC ARTHROPATHY] Onset: 09-25-2022 Chronic Other nutritional; endocrine; and metabolic disorders (3 sources) Body mass index 25-29 - overweight 09-18-2021 Episodic Residual codes; unclassified (3 sources) H/O: anticoagulant therapy 09-21-2019 Episodic Screening and history of mental health and substance abuse codes (3 sources) Ex-smoker 09-21-2019 Episodic Unclassified (3 sources) Drug therapy finding 08-20-2019 Unclassified (1 source) Encounter for preprocedural laboratory examination; 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: [Encounter for preprocedural laboratory examination] Onset: 03-26-2023 Unclassified (1 source) Obstructive hydronephrosis 08-13-2023 Viral infection (1 source) Other specified viral diseases Episodic Past or Other Problems Problem Classification Problem Date Documented Da te Episodic/Chronic Immunizations and screening for infectious disease (1 source) Contact with and (suspected) exposure to other viral communicable diseases Onset: 05-21-2021 Resolved: 05-21-2021 Episodic Other aftercare (1 source) 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 oral hypoglycemic drugs; 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: [CLINICAL LAB SCIENTIST USE ORAL HYPOGLYCEMIC DX] Onset: 08-12-2022 Episodic Other aftercare (1 source) penitentiary (current) use of insulin; 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: [LONGTERM CURRENT USE OF INSULIN] Onset: 02-13-2022 Episodic [...] Name Value Interpretation Reference Range Facil ity Ambulatory Visit Summaryon 0 08-13-2023 Ambulatory Visit Summary WILDA SEN :1945 Visit Date:08/13/2023 Ambulatory Visit Instructions Your Diagnosis Ureteral stone with hydronephrosis Kidney stones Flank pain Anticoagulated Your Care Team Attending Physician - ANGELITO AGUIAR, Renato Arzola Primary Care Physician - CHRIS AGUIAR, JAYME Hazel This Is Your Medications List Contact prescribing physician if questions or concerns Non-Formulary Medication (Misc Medication) acarbose acetaminophen-oxycodo ne (Percocet 5 mg-325 mg oral tablet) aspirin (aspirin 81 mg oral tablet) calcium citrate cephalexin (Keflex 500 mg Cap) cholecalciferol (Vitamin D3) cinnamon cyanocobalamin (Vitamin B12) esomeprazole (Nexium) golimumab (Simponi Aria) metformin methotrexate multivitamin (Multi Vitamins oral tablet) ondansetron (ondansetron 4 mg Tab) predniSONE tamsulosin (tamsulosin 0.4 mg Cap) warfarin [Image Removed: STOP]Stop taking these medications acetaminophen (Tylenol Extra Strength 500 mg oral tablet) Procedures Performed ESWL - Extracorporeal shockwave lithotripsy for renal calculus (08/26/2019), Cystoscopic laser lithotripsy of ureteric calculus (04/12/2016), Cystoscopic removal of ureteric stent (03/28/2016), ESWL of kidney (02/15/2016), Endoscopic retrograde pyelogram (01/16/2016), ESWL of kidney (06/29/2013), Cystoscopic removal of ureteric stent (09/10/2010), ESWL of kidney (08/29/2010), Cystoscopic insertion of ureteric stent (08/23/2010), Endoscopic retrograde pyelogram (03/02/2008), Cystoscopic ureteroneocystostomy with insertion of ureteral stent (10/16/2004), Abdominal hysterectomy, Appendectomy, CE - Cataract extraction, Partial lobectomy of lung, Tonsillectomy. Discharge Vitals Heart Rate (Peripheral) 82 Respiratory Rate 16 Blood Pressure 105/62 Height 160 cm Height 63 in Weight 59 kg Weight 129.8 lb BMI 23.05 What to do next Scheduled Follow-Up Appointments Friday 9:15 AM EDT With: CORA AGUIAR, Williams Venegas Where: [facility] Normal [address] [place] [address]- \.br\ You Need to Schedule the Following Appointments\.br \ Follow Up with ANGELITO AGUIAR, MILDRED Callaway When: \.br\ Comments:\.br\ sched ureteroscopy\.br \ f/u w/ [facility] scheduled 10/14/23\.br\ Where:\.br\ [facility] [address]br\ [place] [address]-\.br\ [phone]\.br\ Medications\.br\ What How Much When Instructions\.br \ Unchanged acarbose 100 Milligram By Mouth 3 times a day Contact prescribing physician if questions or concerns \.br\ Unchanged acetaminophen-ox ycodone (Percocet 5 mg-325 mg oral tablet) 1 Tablets By Mouth Every 6 hours Contact prescribing physician if questions or concerns \.br\ Unchanged aspirin (aspirin 81 mg oral tablet) By Mouth Every day Contact prescribing physician if questions or concerns \.br\ Unchanged calcium citrate 250 Milligram By Mouth 3 times a day Contact prescribing physician if questions or concerns \.br\ Unchanged cephalexin (Keflex 500 mg Cap) By Mouth Every 8 hours Duration: 7 Days Contact prescribing physician if questions or concerns \.br\ Unchanged cholecalciferol (Vitamin D3) 1,000 Units Every day Contact prescribing physician if questions or concerns \.br\ Unchanged cinnamon 1,000 Milligram By Mouth Every day Contact prescribing physician if questions or concerns \.br\ Unchanged cyanocobalamin (Vitamin B12) 3,000 Milligram By Mouth Every day Contact prescribing physician if questions or concerns \.br\ Unchanged esomeprazole (Nexium) 20 Milligram By Mouth As Directed Contact prescribing physician if questions or concerns \.br\ Unchanged golimumab (Simponi Aria) Intravenous Every 4 weeks Contact prescribing physician if questions or concerns \.br\ Unchanged metformin 1,000 Milligram By Mouth 2 times a day Contact prescribing physician if questions or concerns \.br\ Unchanged methotrexate 5 Milligram By Mouth Every week Contact prescribing physician if questions or concerns \.br\ Unchanged multivitamin (Multi Vitamins oral tablet) 1 Tablets By Mouth Every day Contact prescribing physician if questions or concerns \.br\ Unchanged Non-Formulary Medication (Misc Medication) See instructions Oral Contact prescribing physician if questions or concerns \.br\ Unchanged ondansetron (ondansetron 4 mg Tab) By Mouth As Directed Contact prescribing physician if questions or concerns \.br\ Unchanged predniSONE 5 Milligram By Mouth Every day Contact prescribing physician if questions or concerns \.br\ Unchanged tamsulosin (tamsulosin 0.4 mg Cap) By Mouth Every day Duration: 7 Days Contact prescribing physician if questions or concerns \.br\ Unchanged warfarin 3 Milligram By Mouth Every day Contact prescribing physician if questions or concerns \.br\ \.br\ What When Comments\.br\ Stop Taking acetaminophen (Tylenol Extra Strength 500 mg oral tablet) Every 6 hours\.br\ Medications and Immunizations Administered\.br \ Not Given\.br\ influenza virus vaccine, inactivated, Patient Refuses\.br\ SARS-CoV-2 mRNA (tozinameran 5y-11y) vac, Patient Refuses\.br\ Allergies\.br\ NSAIDs (Unknown)\.br\ ciprofloxacin (Unknown)\.br\ sulfa drugs (Unknown)\.br\ Actos (Unknown)\.br\ Latex (Blister)\.br\ Toradol (Nausea)\.br\ ketorolac (Unknown)\.br\ pioglitazone (Unknown)\.br\ Problems\.br\ Ongoing - Any problem that you are currently receiving treatment for.\.br\ Abdominal pain\.br\ Anticoagulated\. br\ Anxiety\.br\ BMI 27.0-27.9,adult\ .br\ Depression\.br\ Diabetes\.br\ Flank pain\.br\ Former smoker\.br\ Frequent urination\.br\ Heart murmur\.br\ History of uterine cancer\.br\ Hx of ad terminal makeup operator use of blood thinners\.br\ Kidney stones\.br\ Nocturia\.br\ Ureteral stone\.br\ Ureteral stone with hydronephrosis\. br\ Patient Survey\.br\ You may receive a survey via text or e-mail asking about your office visit. Please share your experience with us by completing your survey. We appreciate your feedback and thank you for choosing us for your care.\.br\ Education Materials\.br\ Laser Therapy for Kidney Stones\.br\ Laser therapy for kidney stones is a procedure to break up small, hard mineral deposits that form in the kidney (kidney stones). The procedure is done using a device that produces a focused beam of light (laser). The laser breaks up kidney stones into pieces that are small enough to be passed out of the body through urination or removed from the body during the procedure. You may need laser therapy if you have kidney stones that are painful or block your urinary tract.\.br\ This procedure is done by inserting a tube (ureteroscope) into your kidney through the urethral opening. The urethra is the part of the body that drains urine from the bladder. In women, the urethra opens above the vaginal opening. In men, the urethra opens at the tip of the penis. The ureteroscope is inserted through the urethra, and surgical instruments are moved through the bladder and the muscular tube that connects the kidney to the bladder (ureter) until they reach the kidney.\.br\ Tell a health care provider about:\.br\ ? \.br\ Any allergies you have.\.br\ ? \.br\ All medicines you are taking, including vitamins, herbs, eye drops, creams, and zlcm-hii-quruihd medicines.\.br\ ? \.br\ Any problems you or family members have had with anesthetic medicines.\.br\ ? \.br\ Any blood disorders you have.\.br\ ? \.br\ Any surgeries you have had.\.br\ ? \.br\ Any medical conditions you have.\.br\ ? \.br\ Whether you are or may be .\.br\ What are the risks?\.br\ Generally, this is a safe procedure. However, problems may occur, including:\.br\ ? \.br\ Infection.\.br\ ? \.br\ Bleeding.\.br\ ? \.br\ Allergic reactions to medicines.\.br\ ? \.br\ Damage to the urethra, bladder, or ureter.\.br\ ? \.br\ Urinary tract infection (UTI).\.br\ ? \.br\ Narrowing of the urethra (urethral stricture).\.br\ ? \.br\ Difficulty passing urine.\.br\ ? \.br\ Blockage of the kidney caused by a fragment of kidney stone.\.br\ What happens before the procedure?\.br\ Medicines\.br\ ? \.br\ Ask your health care provider about:\.br\ ? \.br\ Changing or stopping your regular medicines. This is especially important if you are taking diabetes medicines or blood thinners.\.br\ ? \.br\ Taking medicines such as aspirin and ibuprofen. These medicines can thin your blood. Do not take these medicines unless your health care provider tells you to take them.\.br\ ? \.br\ Taking rexf-fcw-divlqmh medicines, vitamins, herbs, and supplements.\.br \ Eating and drinking\.br\ Follow instructions from your health care provider about eating and drinking, which may include:\.br\ ? \.br\ 8 hours before the procedure ? stop eating heavy meals or foods, such as meat, fried foods, or fatty foods.\.br\ ? \.br\ 6 hours before the procedure ? stop eating light meals or foods, such as toast or cereal.\.br\ ? \.br\ 6 hours before the procedure ? stop drinking milk or drinks that contain milk.\.br\ ? \.br\ 2 hours before the procedure ? stop drinking clear liquids.\.br\ Staying hydrated\.br\ \.br\ Follow instructions from your health care provider about hydration, which may include:\.br\ ? \.br\ Up to 2 hours before the procedure ? you may continue to drink clear liquids, such as water, clear fruit juice, black coffee, and plain tea.\.br\ General instructions\.br \ ? \.br\ You may have a physical exam before the procedure. You may also have tests, such [facility] Patient Educationon 08-13-19 Patient Education Nephrology Laser Therapy for Kidney Stones Laser therapy for kidney stones is a procedure to break up small, hard mineral deposits that form in the kidney (kidney stones). The procedure is done using a device that produces a focused beam of light (laser). The laser breaks up kidney stones into pieces that are small enough to be passed out of the body through urination or removed from the body during the procedure. You may need laser therapy if you have kidney stones that are painful or block your urinary tract. This procedure is done by inserting a tube (ureteroscope) into your kidney through the urethral opening. The urethra is the part of the body that drains urine from the bladder. In women, the urethra opens above the vaginal opening. In men, the urethra opens at the tip of the penis. The ureteroscope is inserted through the urethra, and surgical instruments are moved through the bladder and the muscular tube that connects the kidney to the bladder (ureter) until they reach the kidney. Tell a health care provider about: ? Any allergies you have. ? All medicines you are taking, including vitamins, herbs, eye drops, creams, and jgor-rsf-okhcrna medicines. ? Any problems you or family members have had with anesthetic medicines. ? Any blood disorders you have. ? Any surgeries you have had. ? Any medical conditions you have. ? Whether you are or may be . What are the risks? Generally, this is a safe procedure. However, problems may occur, including: ? Infection. ? Bleeding. ? Allergic reactions to medicines. ? Damage to the urethra, bladder, or ureter. ? Urinary tract infection (UTI). ? Narrowing of the urethra (urethral stricture). ? Difficulty passing urine. ? Blockage of the kidney caused by a fragment of kidney stone. What happens before the procedure? Medicines ? Ask your health care provider about: ? Changing or stopping your regular medicines. This is especially important if you are taking diabetes medicines or blood thinners. ? Taking medicines such as aspirin and ibuprofen. These medicines can thin your blood. Do not take these medicines unless your health care provider tells you to take them. ? Taking euxs-srn-msrdxtk medicines, vitamins, herbs, and supplements. Eating and drinking Follow instructions from your health care provider about eating and drinking, which may include: ? 8 hours before the procedure ? stop eating heavy meals or foods, such as meat, fried foods, or fatty foods. ? 6 hours before the procedure ? stop eating light meals or foods, such as toast or cereal. ? 6 hours before the procedure ? stop drinking milk or drinks that contain milk. ? 2 hours before the procedure ? stop drinking clear liquids. Staying hydrated Follow instructions from your health care provider about hydration, which may include: ? Up to 2 hours before the procedure ? you may continue to drink clear liquids, such as water, clear fruit juice, black coffee, and plain tea. General instructions ? You may have a physical exam before the procedure. You may also have tests, such as imaging tests and blood or urine tests. ? If your ureter is too narrow, your health care provider may place a soft, flexible tube (stent) inside of it. The stent may be placed days or weeks before your laser therapy procedure. ? Plan to have someone take you home from the hospital or clinic. ? If you will be going home right after the procedure, plan to have someone stay with you for 24 hours. ? Do not use any products that contain nicotine or tobacco for at least 4 weeks before the procedure. These products include cigarettes, e-cigarettes, and chewing tobacco. If you need help quitting, ask your health care provider. ? Ask your health care provider: ? How your surgical site will be marked or identified. ? What steps will be taken to help prevent infection. These may include: ? Removing hair at the surgery site. ? Washing skin with a germ-killing soap. ? Taking antibiotic medicine. What happens during the procedure? ? An IV will be inserted into one of your veins. ? You will be given one or more of the following: ? A medicine to help you relax (sedative). ? A medicine to numb the area (local anesthetic). ? A medicine to make you fall asleep (general anesthetic). ? A ureteroscope will be inserted into your urethra. The ureteroscope will send images to a video screen in the operating room to guide your surgeon to the area of your kidney that will be treated. ? A small, flexible tube will be threaded through the ureteroscope and into your bladder and ureter, up to your kidney. ? The laser device will be inserted into your kidney through the tube. Your surgeon will pulse the laser on and off to break up kidney stones. ? A surgical instrument that has a tiny wire basket may be inserted through the tube into your kidney to remove the pieces (more content not included)... Normal [facility] Urology Office/Clinic Noteon 08-13-2023 Urology Office/Clinic Note Chief Complaint Patient is here for follow up to [facility] ER HPI Staff Patient is here for f/u to [facility] ER on 08/12/23 due to distal right ureteral stone seen on Ct scan with hydroureteronephrosis . Patient took a pain med at 4am today. She was given scripts for Keflex 500mg, Ondansetron 4mg, Percocet 5/325mg, and Tamsulosin 0.4mg. She is a Dr. Shepherd patient seen January 2023. She has passed stones in the past, last one was May 2023. Patient denies flank pain at this time. When pain comes, it is on the top and bottom of her back. She does have frequency, no urgency. She denies seeing blood in the urine. She is unable to give urine sample today. She denies urine leaking. History of Present Illness Tests reviewed: reviewed UA, ER notes, CT scan, CMP I have reviewed the previous health record information and history for this patient from external providers and Dr. Shepherd. I have reviewed and verified the staff HPI to be accurate for this encounter. Review of Systems PHQ Score Initial Depression Screen Score: 0 SCORE ROS - Provider Constitutional: denies weight loss, [...] HPI. Physical Exam Vitals & Measurements HR: 82(Peripheral) RR: 16 BP: 105/62 HT: 63 in HT: 160 cm WT: 59 kg WT: 129.8 lb BMI: 23.05 General Appearance: alert , no acute distress, well nourished, well developed female. Genitourinary: bladder nonpalpable, moderateR sided flank pain. Assessment/Plan Dr. Shepherd pt 1. Ureteral stone with hydronephrosis (N13.2: Hydronephrosis with renal and ureteral calculous obstruction) [facility] ER visit 08/12/23 due to R flank pain radiating to RLQ. Given Flomax, Percocet, Zofran, and Keflex. Case was discussed w/ Dr. Santacruz. CT AP wo con 08/12/23 [facility] - Moderate R hydro secondary to 5mm distal R ureteral stone. Bilateral nonobstructing subcentimeter renal calculi measuring up to 5mm in RSP. Discussed imaging results, has R distal ureteral stone. Denies passing a stone. Denies seeing visible blood in her urine. States she took a pill for pain this morning. Continues to have R flank pain, tender to palpation. Discussed options include pt trying to pass stone on own vs undergoing surgical intervention. Pt does not want to pass stone on own. -Will schedule a Cystoscopy with Right Retrogrades, Right Ureteroscopy, Right Laser Litho, Right Stone Basket, Right possible R stent placement. The procedure risks, benefits, alternatives and complications have been discussed with the patient. These include but are not limited to bleeding, pain, infection, ureteral perforation, extravasation, stricture formation, sepsis, obstruction, inability to reach the stone, inability to fragment the stone, and inability to retrieve all stone fragments. The need for ancillary procedures such as stent placement and removal, retrograde urography, and percutaneous nephrostomy were also discussed. The patient also understood that a ureteral stent may be placed and removal of the stent is critical. Failure to follow up for stent removal can result in recurrent UTIs, encrustation of the stent, loss of kidney function and need for nephrectomy. All of their questions and concerns have been addressed. Full informed consent has been obtained. Will order General anesthesia. -Consider metabolic workup after treatment 2. Kidney stones (N20.0: Calculus of kidney) Cysto/laser lithotripsy 04/12/[address] Shepherd. S/P ESWL 08/26/[address] Shepehrd. S/p Cysto/R RGP/R ESWL/R stent placement 06/29/23. Last stone episode 03/2023. Stone analysis 03/20/23 - 100% Di Ca Ox CT AP wo con 08/12/23 [facility] - Bilateral nonobstructing subcentimeter renal calculi measuring up to 5mm in RSP. -See #1 3. Flank pain (R10.9: Unspecified abdominal pain) See #1 4. Anticoagulated (Z79.01: penitentiary (current) use of anticoagulants) On warfarin 3mg for a-fib. States she did not take this last night. Advised pt not to take her dose today either. Follow-up With When Contact Information ANGELITO AGUIAR, Renato Arzola, [facility] [address], [place] [address] [phone] Additional Instructions: sched ureteroscopy f/u w/ [facility] scheduled 10/14/23 Patient Education Laser Therapy for Kidney Stones I, Amy Gallagher, personally scribed for Dr. Santacruz on 08/13/2023 11:35:03. . Documentation recorded by the scribe, Amy Gallagher, accurately reflects the services(s) I performed and decisions made by me. Authenticated by Dr. Santacruz on 08/13/2023 11:37:02. Problem List/Past Medical History [place] (more content not included)... Normal [facility] Comment on above: Result Comment: Elec tronically Signed By: Renato SANTACRUZ MD\.br\Date and Time Signed: 08/13/23 11:37 EST\.br\Electronically Co-Signed By: Amy Gallagher\.br\Date and Time Co-Signed: 08/13/23 11:35 EST COVID/FLU/RSV RT-PCRon 07-25 SARS-CoV-2 (COVID-19) RNA TREASURE+probe Ql (Unsp spec) Negative [facility] Other COVID/FLU/RSV RT-PCR Negative [facility] Other COVID/FLU/RSV RT-PCR Positive [facility] Other Calculus Analysison 03-27-20 23 Calcium oxalate dihydrate Infrared spectroscopy (Stone) [Mass fraction] 100 % Invalid Interpretation Code [facility] Comment on above: Performed By: #### 1 [id number] ####[place] [address] Color (Stone) Roper Invalid Interpretation Code [facility] Comment on above: Performed By: #### 1 [id number] ####[id number] [place] [address] Composition Comment Invalid Interpretation Code [facility] Comment on above: Result Comment: Perc entage (Represents the % composition) Performed By: #### 1 [id number] ####[facility] [address] [place] [id number] Disclaimer: Comment Invalid Interpretation Code [facility] Comment on above: Result Comment: This test was developed and its performance characteristics determined by [employer]. It has not been cleared or approved by the Food and Drug Administration. Performed at: [address] [id number] PhD Silvestre Esquivel Performed By: #### 1 [id number] ####[address] [address] Laboratory comment Noam (Report) Comment Invalid Interpretation Code [facility] Comment on above: Result Comment: Coco goode questions regarding Calculi Analysis contact [facility] at: [phone]. Performed By: #### 1 [id number] ####[facility] [address] [place] [address] Please Note: Comment Invalid Interpretation Code [facility] Comment on above: Result Comment: Calc javier report will follow via computer, mail or sports book board attendant delivery. Performed By: #### 1 [id number] ####[facility] [address] [place] [address] Size (Stone) [Entitic vol] 6x4 Invalid Interpretation Code [facility] Comment on above: Result Comment: Sing le piece received. Performed By: #### 1 [id number] ####[facility] [address] [place] [address] Specimen source subject Nom Comment Invalid Interpretation Code [facility] Comment on above: Result Comment: Not provided Performed By: #### 1 [id number] ####[facility] [address] [place] [address] Stone Photo Comment Invalid Interpretation Code [facility] Comment on above: Result Comment: Phot ograph will follow under a separate cover Performed By: #### 1 [id number] ####[facility] [address] [place] [address] Weight (Stone) 49 mg Invalid Interpretation Code [facility] Comment on above: Performed By: #### 1 [id number] ####[facility] [address] [place] [address] Lab Reportson 03-27-2023 Lab Reports [id number] Normal [facility] Activated partial thrombopla stin time (aPTT) in platelet poor plasma by coagulation aOrdered By: Williams Shepherd on 03-26-2023 aPTT Coag (PPP) [Time] 35.9 s 25.1-36.5 [place] Comment on above: A hematocrit value g reater than 55% may lead to inaccurate results in coagulation testing. Patients having hematocrit values >55% require a special collection tube for coagulation studies. Please contact the laboratory at [phone] for redraw instructions. Basic Metabolic Panelon 03-14 Anion gap [Moles/Vol] 13.0 mmol/L Normal 6.0-15.0 [facility] Comment on above: Performed By: #### P T, BMP, CBC, PTT #### [facility] [id number] [facility] Calcium [Mass/Vol] 10.0 mg/dL Normal 8.6-10.3 [facility] Comment on above: Result Comment: PERF ORMED BY: [place] [address] PATHOLOGIST [employer] BERNIE GRAYSON M.D. Performed By: #### P T, BMP, CBC, PTT #### [address] Chloride [Moles/Vol] 104 mmol/L Normal 98-107 [facility] Comment on above: Performed By: #### P T, BMP, CBC, PTT #### [facility] [address] [place] [address] [place] CO2 [Moles/Vol] 30.0 mmol/L Normal 21.0-31.0 [facility] Comment on above: Performed By: #### P T, BMP, CBC, PTT #### [facility] [address] [place] [address] [place] Creatinine [Mass/Vol] 0.85 mg/dL Normal 0.60-1.20 [facility] Comment on above: Performed By: #### P T, BMP, CBC, PTT #### [facility] [address] [id number] [place] GFR/1.73 sq M.predicted MDRD (S/P/Bld) [Vol rate/Area] mL/min/{1.73_m2} Normal [facility] Comment on above: Performed By: #### P T, BMP, CBC, PTT #### [place] [address] [place] Glucose [Mass/Vol] 111 mg/dL High 70-100 [facility] Comment on above: Result Comment: [place] Glucose Reference Range is dependent on time and content of last meal. Glucose of more than 200 mg/dL in a nonstressed, ambulatory subject supports the diagnosis of Diabetes Mellitus. ADA recommended reference range Performed By: #### P T, BMP, CBC, PTT #### [facility] [address] Potassium [Moles/Vol] 5.0 mmol/L Normal 3.5-5.1 [facility] Comment on above: Performed By: #### P T, BMP, CBC, PTT #### [facility] [address] Sodium [Moles/Vol] 142 mmol/L Normal 136-145 [facility] Comment on above: Performed By: #### P T, BMP, CBC, PTT #### [facility] [address] Urea nitrogen [Mass/Vol] 12 mg/dL Normal 7-25 [facility] Comment on above: Performed By: #### P T, BMP, CBC, PTT #### [facility] [address] Basophils Auto (Bld) [#/Vol] Ordered By: Williams Shepherd on 03-26-2023 Basophils (Bld) [#/Vol] 0.0 10*3/uL 0.0-0.2 [place] Basophils/100 WBC Auto (Bld) Ordered By: Williams Shepherd on 03-26-2023 Basophils/100 WBC (Bld) 0.8 % . [facility] Calcium [Mass/volume] in Ser um or PlasmaOrdered By: Williams Shepherd on 03-26-2023 Calcium [Mass/Vol] 10.0 mg/dL 8.6-10.3 [facility] Carbon dioxide, total [Moles /volume] in Serum or PlasmaOrdered By: Williams Shepherd on 03-26-2023 CO2 [Moles/Vol] 30.0 mmol/L 21.0-31.0 [facility] Chloride [Moles/volume] in S fartun or PlasmaOrdered By: Williams Shepherd on 03-26-2023 Chloride [Moles/Vol] 104 mmol/L 98-107 [facility] Complete Blood Count Auto Di ffon 03-26-2023 Basophils (Bld) [#/Vol] 0.0 10*3/uL Normal 0.0-0.2 [facility] Comment on above: Result Comment: PERF ORMED BY: [place] [address] PATHOLOGIST [employer] BERNIE GRAYSON M.D. Performed By: #### P T, BMP, CBC, PTT #### [facility] [address] Basophils/100 WBC (Bld) 0.8 % Normal . [facility] Comment on above: Performed By: #### P T, BMP, CBC, PTT #### [facility] [address] Eosinophils (Bld) [#/Vol] 0.3 10*3/uL Normal 0.0-0.45 [facility] Comment on above: Performed By: #### P T, BMP, CBC, PTT #### [facility] [address] [place] [address] Eosinophils/100 WBC (Bld) 4.3 % Normal . [facility] Comment on above: Performed By: #### P T, BMP, CBC, PTT #### [facility] [address] [place] [address] Erythrocyte distribution width (RBC) [Ratio] 14.8 % Normal 11.9-15.3 [facility] Comment on above: Performed By: #### P T, BMP, CBC, PTT #### [facility] [address] Hematocrit (Bld) [Volume fraction] 40.3 % Normal 34.0-46.4 [facility] Comment on above: Performed By: #### P T, BMP, CBC, PTT #### [facility] [address] [place] [address] Hemoglobin (Bld) [Mass/Vol] 13.3 g/dL Normal 11.8-15.4 [facility] Comment on above: Performed By: #### P T, BMP, CBC, PTT #### [address] Lymphocytes (Bld) [#/Vol] 2.2 10*3/uL Normal 1.00-4.8 [facility] Comment on above: Performed By: #### P T, BMP, CBC, PTT #### [address] Lymphocytes/100 WBC (Bld) 36.9 % Normal . [facility] Comment on above: Performed By: #### P T, BMP, CBC, PTT #### [address] MCH (RBC) [Entitic mass] 31.1 pg Normal 24.7-34.3 [facility] Comment on above: Performed By: #### P T, BMP, CBC, PTT #### [address] MCV (RBC) [Entitic vol] 94.4 fL Normal 80-100 [facility] Comment on above: Performed By: #### P T, BMP, CBC, PTT #### [address] Mean Corpuscular HGB Conc 32.9 g/dL Normal 32.0-35.0 [facility] Comment on above: Performed By: #### P T, BMP, CBC, PTT #### [address] Monocytes (Bld) [#/Vol] 0.5 10*3/uL Normal 0.0-0.8 [place] Comment on above: Performed By: #### P T, BMP, CBC, PTT #### [address] Monocytes/100 WBC (Bld) 7.8 % Normal . [facility] Comment on above: Performed By: #### P T, BMP, CBC, PTT #### [address] [place] [address] [place] Neutrophils (Bld) [#/Vol] 3.0 10*3/uL Normal 1.8-7.7 [facility] Comment on above: Performed By: #### P T, BMP, CBC, PTT #### [address] Neutrophils/100 WBC (Bld) 50.2 % Normal . [facility] Comment on above: Performed By: #### P T, BMP, CBC, PTT #### [address] NRBC% 0.3 /100{WBC} Normal 0-0.5 [place] Comment on above: Performed By: #### P T, BMP, CBC, PTT #### [address] Platelet mean volume (Bld) [Entitic vol] 7.1 fL Normal 6.3-10.7 [facility] Comment on above: Performed By: #### P T, BMP, CBC, PTT #### [address] Platelets (Bld) [#/Vol] 363 10*3/uL Normal 150-450 [facility] Comment on above: Performed By: #### P T, BMP, CBC, PTT #### [address] RBC (Bld) [#/Vol] 4.27 10*6/uL Normal 3.60-5.[address] [facility] Comment on above: Performed By: #### P T, BMP, CBC, PTT #### [place] [address] [place] WBC (Bld) [#/Vol] 5.9 10*3/uL Normal 3.8-11.6 [facility] Comment on above: Performed By: #### P T, BMP, CBC, PTT #### [address] Creatinine [Mass/volume] in Serum or PlasmaOrdered By: Williams Shepherd on 03-26-2023 Creatinine [Mass/Vol] 0.85 mg/dL 0.60-1.20 [place] ECG 12 lead ECGon 03-26-2023 ECG 12 lead ECG [facility] [place] [address] Electrocardiograph Report Signed Patient: Wilda Sen MR#: [id number] 8 : 1945 Acct:[id number] Age/Sex: 77 / F ADM Date: 03/26/23 Loc: Room: Type: [facility] Attending Dr: Williams Shepherd MD [...] By Maru Whitehead DO 03/26 190 Normal [place] Eosinophils Auto (Bld) [#/Vo l]Ordered By: Williams Shepherd on 03-26-2023 Eosinophils (Bld) [#/Vol] 0.3 10*3/uL 0.0-0.45 [place] Eosinophils/100 WBC Auto (Bl d)Ordered By: Williams Shepherd on 03-26-2023 Eosinophils/100 WBC (Bld) 4.3 % . [facility] Erythrocyte distribution wid th Auto (RBC) [Ratio]Ordered By: Williams Shepherd on 03-26-2023 Erythrocyte distribution width (RBC) [Ratio] 14.8 % 11.9-15.3 [place] Glucose [Mass/volume] in Ser um or PlasmaOrdered By: Williams Shepherd on 03-26-2023 Glucose [Mass/Vol] 111 mg/dL 70-100 [facility] Comment on above: ADA recommended refe rence rangeRandom Glucose Reference Range is dependent on time and content of last meal. Glucose of more than 200 mg/dL in a nonstressed, ambulatory subject supports the diagnosis of Diabetes Mellitus. Hematocrit Auto (Bld) [Volum e fraction]Ordered By: Williams Shepherd on 03-26-2023 Hematocrit (Bld) [Volume fraction] 40.3 % 34.0-46.4 [place] Hemoglobin [Mass/volume] in BloodOrdered By: Williams Shepherd on 03-26-2023 Hemoglobin (Bld) [Mass/Vol] 13.3 g/dL 11.8-15.4 [place] INR in Platelet poor plasma by Coagulation assayOrdered By: Williams Shepherd on 03-26-2023 INR Coag (PPP) [Relative time] 2.3 {INR} [facility] Comment on above: INR Therapeutic Rang e [...] RBC Auto (Bld) [#/Vol] 5.9 10*3/uL 3.8-11.6 [place] Lymphocytes Auto (Bld) [#/Vo l]Ordered By: Williams Shepherd on 03-26-2023 Lymphocytes (Bld) [#/Vol] 2.2 10*3/uL 1.00-4.8 [facility] Lymphocytes/100 WBC Auto (Bl d)Ordered By: Williams Shepherd on 03-26-2023 Lymphocytes/100 WBC (Bld) 36.9 % . [facility] MCH Auto (RBC) [Entitic mass ]Ordered By: Williams Shepherd on 03-26-2023 MCH (RBC) [Entitic mass] 31.1 pg 24.7-34.3 [place] MCHC Auto (RBC) [Mass/Vol]Or dered By: Williams Shepherd on 03-26-2023 MCHC (RBC) [Mass/Vol] 32.9 g/dL 32.0-35.0 [facility] MCV Auto (RBC) [Entitic vol] Ordered By: Williams Shepherd on 03-26-2023 MCV (RBC) [Entitic vol] 94.4 fL 80-100 [facility] Monocytes Auto (Bld) [#/Vol] Ordered By: Williams Shepherd on 03-26-2023 Monocytes (Bld) [#/Vol] 0.5 10*3/uL 0.0-0.8 [place] Monocytes/100 WBC Auto (Bld) Ordered By: Williams Shepherd on 03-26-2023 Monocytes/100 WBC (Bld) 7.8 % . [facility] Neutrophils Auto (Bld) [#/Vo l]Ordered By: Williams Shepherd on 03-26-2023 Neutrophils (Bld) [#/Vol] 3.0 10*3/uL 1.8-7.7 [place] Neutrophils/100 WBC Auto (Bl d)Ordered By: Williams Shepherd on 03-26-2023 Neutrophils/100 WBC (Bld) 50.2 % . [facility] No Panel InformationOrdered By: Williams Shepherd on 03-26-2023 Estimated GFR (CKD-EPI) > 60.0 mL/Min [facility] Creatinine Clearance (Chem N/A [facility] Nucleated erythrocytes [Pres ence] in Blood by Automated countOrdered By: Williams Shepherd on 03-26-2023 Nucleated RBC Auto Ql (Bld) 0.3 /100{WBC} 0-0.5 [facility] Partial Thromboplastin Timeo n 03-26-2023 aPTT Coag (Bld) [Time] 35.9 s Normal 25.1-36.5 [facility] Comment on above: Result Comment: A he matocrit value greater than 55% may lead to inaccurate results in coagulation testing. Patients having hematocrit values >55% require a special collection tube for coagulation studies. Please contact the laboratory at [phone] for redraw instructions. PERFORMED BY: [facility] [address] [place] [id number] PATHOLOGIST [employer] BERNIE GRAYSON M.D. Performed By: #### P T, BMP, CBC, PTT #### [facility] [id number] [facility] Platelet mean volume Auto (B ld) [Entitic vol]Ordered By: Williams Shepherd on 03-26-2023 Platelet mean volume (Bld) [Entitic vol] 7.1 fL 6.3-10.7 [place] Platelets Auto (Bld) [#/Vol] Ordered By: Williams Shepherd on 03-26-2023 Platelets (Bld) [#/Vol] 363 10*3/uL 150-450 [facility] Potassium [Moles/volume] in Serum or PlasmaOrdered By: Williams Shepherd on 03-26-2023 Potassium [Moles/Vol] 5.0 mmol/L 3.5-5.1 [facility] Prothrombin Time INRon 03-26 INR Coag (PPP) [Relative time] 2.3 {INR} Normal [place] Comment on above: Result Comment: INR Therapeutic [...] #### P T, BMP, CBC, PTT #### [facility] [address] [id number] [facility] PT Coag (PPP) [Time] 26.6 s High 9.0-12.9 [facility] Comment on above: Result Comment: A he matocrit value greater than 55% may lead to inaccurate results in coagulation testing. Patients having hematocrit values >55% require a special collection tube for coagulation studies. Please contact the laboratory at [phone] for redraw instructions. Performed By: #### P T, BMP, CBC, PTT #### [facility] [address] [id number] [facility] Prothrombin time (PT)Ordered By: Williams Shepherd on 03-26-2023 PT Coag (PPP) [Time] 26.6 s 9.0-12.9 [facility] Comment on above: A hematocrit value g reater than 55% may lead to inaccurate results in coagulation testing. Patients having hematocrit values >55% require a special collection tube for coagulation studies. Please contact the laboratory at [phone] for redraw instructions. RBC Auto (Bld) [#/Vol]Ordere d By: Williams Shepherd on 03-26-2023 RBC (Bld) [#/Vol] 4.27 10*6/uL 3.60-5.[address] [facility] Serum or plasma anion gap de terminationOrdered By: Williams Shepherd on 03-26-2023 Anion gap [Moles/Vol] 13.0 mmol/L 6.0-15.0 [place] Sodium [Moles/volume] in Ser um or PlasmaOrdered By: Williams Shepherd on 03-26-2023 Sodium [Moles/Vol] 142 mmol/L 136-145 [facility] Urea nitrogen [Mass/volume] in Serum or PlasmaOrdered By: Williams Shepherd on 03-26-2023 Urea nitrogen [Mass/Vol] 12 mg/dL 7-25 [place] WBC Auto (Bld) [#/Vol]Ordere d By: Williams Shepherd on 03-26-2023 WBC (Bld) [#/Vol] 5.9 10*3/uL 3.8-11.6 [facility] Consultation Noteon 03-17-20 Consultation Note [id number] .00CD:127 Normal [facility] Lab Reportson 02-12-2023 Lab Reports [id number] .00CD:127 Normal [facility] RAD - MISCon 02-12-2023 RAD - MISC [id number] .00CD:127 Normal [facility] RAD - CT Reporton 02-05-2023 RAD - CT Report [id number] .00CD:127 Normal [facility] RAD - MISCon 02-05-2023 RAD - MISC [id number] .00CD:127 Normal [facility] Ambulatory Visit Summaryon 0 02-03-2023 Ambulatory [...] Follow-Up Appointments Friday 10:45 AM EST With: Williams SHEPHERD MD Where: [facility] Floyd [facility] Patient Educationon 02-04-20 23 Patient Education [...] these instructions at home: Medicines ? Take tcgb-jul-loslimi and prescription medicines only as told by [...] follow (more content not included)... Normal [facility] Urology Office/Clinic Noteon 02-03-2023 Urology Office/Clinic Note Chief Complaint 16 month follow up w/ CT scan HPI Staff Pt is here today for 16 month follow up w/ CT scan done @[facility] on 01/15/23. CT scan shows partially obstructing [...] the plan Follow-up With When Contact Information CORA AGUIAR, Williams P, URL [address] [address]- Additional Instructions: Patient Education Kidney Stones I, Fanny Bowen, personally scribed for Dr. Shepherd on 02/03/2023 12:04:03. . Documentation recorded by the scribe, Fanny Bowen, accurately reflects the services(s) I performed and decisions made by me. Authenticated by Dr. Shepherd on 02/03/2023 12:37:35. Portions of this record may have been created with voice recognition artificial intelligence software, specifically Whistlestop, PrintFu and or RebelMail. Substitutions may have occurred due to the inherent limitations of voice recognition and artificial intelligence software. Problem List/Past Medical History Ongoing Abdominal pain Anticoagulated Anxiety BMI 27.0-27.9,adult Depression Diabetes Former smoker Frequent urination Heart murmur History of uterine cancer Hx of intermediate use of blood thin (more content not included)... Normal [facility] Comment on above: Result Comment: Elec tronically Signed By: Williams SHEPHERD MD\.br\Date and Time Signed: 02/03/23 12:39 EDT\.br\Electronically Co-Signed By: Fanny Bowen\.br\Date and Time Co-Signed: 02/03/23 12:04 EDT PROTIMEon 12-02-2022 INR Coag (PPP) [Relative time] 3.62 {INR} Normal [facility] Comment on above: Performed By: #### P T #### [facility] [address] [address] [address] Tg Fierro INR GUIDELINES SEE BELOW Normal [facility] Comment on above: Result Comment: LAURENCE RED INR: 2.0 - 3.0 CONDITIONS NOT LISTED BELOW 2.5 - 3.5 FOR PROSTHETIC HEART VALVE REPLACEMENT 2.5 - 3.5 RECURRENT THROMBOSIS Performed By: #### P T #### [facility] [address] [address] [address] Tg Fierro PT Coag (PPP) [Time] 35.7 s Critically high 9.0-11.6 [facility] Comment on above: Performed By: #### P T #### [facility] [address] [place] [address] Dr. Tg Fierro PROTIMEon 11-11-2022 INR Coag (PPP) [Relative time] 1.90 {INR} Normal [facility] Comment on above: Performed By: #### P T #### [facility] [address] [place] [address] Dr. Tg Fierro INR GUIDELINES SEE BELOW Normal [facility] Comment on above: Result Comment: LAURENCE RED INR: 2.0 - 3.0 CONDITIONS NOT LISTED BELOW 2.5 - 3.5 FOR PROSTHETIC HEART VALVE REPLACEMENT 2.5 - 3.5 RECURRENT THROMBOSIS Performed By: #### P T #### [facility] [address] [place] [address] Dr. Tg Fierro PT Coag (PPP) [Time] 19.4 s Critically high 9.0-11.6 [facility] Comment on above: Performed By: #### P T #### [facility] [address] [place] [address] Dr. Tg Fierro CBC AUTO DIFFon 10-25-2022 BASO # 0.0 103/ul Normal 0.0-0.1 [facility] Comment on above: Performed By: #### P T #### [facility] [address] [place] [address] Dr. Tg Fierro Basophils/100 WBC (Bld) 0.5 % Normal 0.2-2.0 [facility] Comment on above: Performed By: #### P T #### [facility] [address] [place] [address] Dr. Tg Fierro EO # 0.2 103/ul Normal 0.0-0.7 [facility] Comment on above: Performed By: #### P T #### [facility] [address] [place] [address] Dr. Tg Fierro Eosinophils/100 WBC (Bld) 2.7 % Normal 0.9-7.0 [facility] Comment on above: Performed By: #### P T #### [facility] [address] [place] [address] Dr. Tg Fierro Erythrocyte distribution width (RBC) [Ratio] 13.4 % Normal 11.0-15.0 [facility] Comment on above: Performed By: #### P T #### [facility] [address] [place] [address] Dr. Tg Fierro Hematocrit (Bld) [Volume fraction] 40.7 % Normal 36.0-48.0 [facility] Comment on above: Performed By: #### P T #### [facility] [address] [place] [address] Dr. Tg Fierro Hemoglobin (Bld) [Mass/Vol] 13.2 g/dL Normal 12.0-16.0 [facility] Comment on above: Performed By: #### P T #### [facility] [address] [place] [address] Dr. Tg Fierro IG # 0.03 10e3/ul Normal 0.00-0.03 [facility] Comment on above: Performed By: #### P T #### [facility] [address] [place] [address] Dr. Tg Fierro IG % 0.5 % Normal 0.0-0.5 [facility] Comment on above: Performed By: #### P T #### [facility] [address] [place] [address] Dr. Tg Fierro LYMPH # 2.1 103/ul Normal 1.2-3.8 [facility] Comment on above: Performed By: #### P T #### [facility] [address] [place] [address] Dr. Tg Fierro Lymphocytes/100 WBC (Bld) 34.9 % Normal 20.5-60.0 [facility] Comment on above: Performed By: #### P T #### [facility] [address] [place] [address] Dr. Tg Fierro MANUAL DIFF REQ NO Normal [facility] Comment on above: Performed By: #### P T #### [facility] [address] [place] [address] Dr. Tg Fierro MCH (RBC) [Entitic mass] 30.5 pg Normal 26.7-34.0 [facility] Comment on above: Performed By: #### P T #### [facility] [address] [place] [address] Dr. Tg Fierro MCHC (RBC) [Mass/Vol] 32.4 g/dL Normal 29.9-35.2 [facility] Comment on above: Performed By: #### P T #### [facility] [address] [place] [address] Dr. Tg Fierro MCV (RBC) [Entitic vol] 94.0 fL Normal 81.0-99.0 [facility] Comment on above: Performed By: #### P T #### [facility] [address] [place] [address] Dr. Tg Fierro MONO # 0.4 103/ul Normal 0.3-0.8 [facility] Comment on above: Performed By: #### P T #### [facility] [address] [place] [address] Dr. Tg Fierro Monocytes/100 WBC (Bld) 7.1 % Normal 1.7-12.0 [facility] Comment on above: Performed By: #### P T #### [facility] [address] [place] [address] Dr. Tg Fierro NEUT # 3.2 103/ul Normal 1.4-6.5 [facility] Comment on above: Performed By: #### P T #### [facility] [address] [place] [address] Dr. Tg Fierro Neutrophils/100 WBC (Bld) 54.3 % Normal 43.0-75.0 [facility] Comment on above: Performed By: #### P T #### [facility] [address] [place] [address] Dr. Tg Fierro Platelet mean volume (Bld) [Entitic vol] 8.7 fL Critically low 9.5-13.5 [facility] Comment on above: Performed By: #### P T #### [facility] [address] [place] [address] Dr. Tg Fierro PLT 295 103/ul Normal 150-450 [facility] Comment on above: Performed By: #### P T #### [facility] [address] [place] [address] Dr. Tg Fierro RBC 4.33 106/ul Normal 4.20-5.40 [facility] Comment on above: Performed By: #### P T #### [facility] [address] [place] [address] Dr. Tg Fierro WBC 5.9 103/ul Normal 4.0-11.0 [facility] Comment on above: Performed By: #### P T #### [facility] [address] [place] [address] Dr. Tg Fierro PROF 14(COMP METB)on 023 Albumin [Mass/Vol] 3.8 g/dL Normal 3.4-5.0 [facility] Comment on above: Performed By: #### C MP #### [facility] [address] [place] [address] Dr. Tg Fierro Albumin/Globulin [Mass ratio] 1.2 {ratio} Normal [facility] Comment on above: Performed By: #### C MP #### [facility] [address] [place] [address] Dr. Tg Fierro ALP [Catalytic activity/Vol] 49 U/L Normal 46-116 [facility] Comment on above: Performed By: #### C MP #### [facility] [address] [place] [address] Dr. Tg Fierro ALT [Catalytic activity/Vol] 21 U/L Normal 14-59 [facility] Comment on above: Performed By: #### C MP #### [facility] [address] [place] [address] Dr. Tg Fierro Anion gap [Moles/Vol] 13.3 mmol/L Normal [facility] Comment on above: Performed By: #### C MP #### [facility] [address] [place] [address] Dr. Tg Fierro AST [Catalytic activity/Vol] 14 U/L Critically low 15-37 [facility] Comment on above: Performed By: #### C MP #### [facility] [address] [address] [address] Tg Fierro Bilirubin [Mass/Vol] 0.5 mg/dL Normal 0.2-1.0 [facility] Comment on above: Performed By: #### C MP #### [facility] [address] [address] [address] Tg Fierro Calcium [Mass/Vol] 9.5 mg/dL Normal 8.5-10.1 [facility] Comment on above: Performed By: #### C MP #### [facility] [address] [place] [address] Dr. Tg Fierro Chloride [Moles/Vol] 104 mmol/L Normal 98-107 [facility] Comment on above: Performed By: #### C MP #### [facility] [address] [place] [address] Dr. gT Fierro CO2 [Moles/Vol] 29.3 mmol/L Normal 21.0-32.0 [facility] Comment on above: Performed By: #### C MP #### [facility] [address] [place] [address] Dr. Tg Fierro Creatinine [Mass/Vol] 0.93 mg/dL Normal 0.55-1.02 [facility] Comment on above: Performed By: #### C MP #### [facility] [address] [place] [address] Dr. Tg Fierro EGFR-AF BURMESE >60 Normal >=60 [facility] Comment on above: Performed By: #### C MP #### [facility] [address] [address] [address] Tg Fierro EGFR-NON AF BURMESE 59 mL/min/1.73m2 Critically low >=60 [facility] Comment on above: Performed By: #### C MP #### [facility] [address] [place] [address] Dr. Tg Fierro Globulin (S) [Mass/Vol] 3.2 g/dL Normal [facility] Comment on above: Performed By: #### C MP #### [facility] [address] [address] [address] Tg Fierro Glucose [Mass/Vol] 186 mg/dL Critically high 74-106 [facility] Comment on above: Performed By: #### C MP #### [facility] [address] [address] [address] Tg Fierro Potassium [Moles/Vol] 4.6 mmol/L Normal 3.5-5.1 [facility] Comment on above: Performed By: #### C MP #### [facility] [address] [address] [address] Tg Fierro Protein [Mass/Vol] 7.0 g/dL Normal 6.4-8.2 [facility] Comment on above: Performed By: #### C MP #### [facility] [address] [address] [address] Tg Fierro Sodium [Moles/Vol] 142 mmol/L Normal 136-145 [facility] Comment on above: Performed By: #### C MP #### [facility] [address] [address] [address] Tg Fierro Urea nitrogen [Mass/Vol] 15.0 mg/dL Normal 7.0-18.0 [facility] Comment on above: Performed By: #### C MP #### [facility] [address] [address] [address] Tg Fierro Urea nitrogen/Creatinine [Mass ratio] 16.1 mg/mg Normal [facility] Comment on above: Performed By: #### C MP #### [facility] [address] [address] [address] Tg Fierro SED RATE WHITETHORNERGRENon 2022 SED RATE 9 mm/hr Normal <=30 [facility] Comment on above: Performed By: #### C MP #### [facility] [address] [address] [address] Tg Fierro PROTIMEon 10-14-2022 INR Coag (PPP) [Relative time] 1.94 {INR} Normal [facility] Comment on above: Performed By: #### P T #### [facility] [address] [place] [address] Dr. Tg Fierro INR GUIDELINES SEE BELOW Normal [facility] Comment on above: Result Comment: LAURENCE RED INR: 2.0 - 3.0 CONDITIONS NOT LISTED BELOW 2.5 - 3.5 FOR PROSTHETIC HEART VALVE REPLACEMENT 2.5 - 3.5 RECURRENT THROMBOSIS Performed By: #### P T #### [facility] [address] [place] [address] Dr. Tg Fierro PT Coag (PPP) [Time] 19.8 s Critically high 9.0-11.6 [facility] Comment on above: Performed By: #### P T #### [facility] [address] [place] [address] Dr. Tg Fierro CBC AUTO DIFFon 09-24-2022 BASO # 0.1 103/ul Normal 0.0-0.1 [facility] Comment on above: Performed By: #### P T #### [facility] [address] [place] [address] Dr. Tg Fierro Basophils/100 WBC (Bld) 0.7 % Normal 0.2-2.0 [facility] Comment on above: Performed By: #### P T #### [facility] [address] [place] [address] Dr. Tg Fierro EO # 0.3 103/ul Normal 0.0-0.7 [facility] Comment on above: Performed By: #### P T #### [facility] [address] [place] [address] Dr. Tg Fierro Eosinophils/100 WBC (Bld) 3.6 % Normal 0.9-7.0 [facility] Comment on above: Performed By: #### P T #### [facility] [address] [place] [address] Dr. Tg Fierro Erythrocyte distribution width (RBC) [Ratio] 13.4 % Normal 11.0-15.0 [facility] Comment on above: Performed By: #### P T #### [facility] [address] [place] [address] Dr. Tg Fierro Hematocrit (Bld) [Volume fraction] 38.4 % Normal 36.0-48.0 [facility] Comment on above: Performed By: #### P T #### [facility] [address] [place] [address] Dr. Tg Fierro Hemoglobin (Bld) [Mass/Vol] 12.7 g/dL Normal 12.0-16.0 [facility] Comment on above: Performed By: #### P T #### [facility] [address] [place] [address] Dr. Tg Fierro IG # 0.05 10e3/ul Critically high 0.00-0.03 [facility] Comment on above: Performed By: #### P T #### [facility] [address] [place] [address] Dr. Tg Fierro IG % 0.7 % Critically high 0.0-0.[address] [facility] Comment on above: Performed By: #### P T #### [facility] [address] [place] [address] Dr. Tg Fierro LYMPH # 2.6 103/ul Normal 1.2-3.8 [facility] Comment on above: Performed By: #### P T #### [facility] [address] [place] [address] Dr. Tg Fierro Lymphocytes/100 WBC (Bld) 34.2 % Normal 20.5-60.0 [facility] Comment on above: Performed By: #### P T #### [facility] [address] [place] [address] Dr. Tg Fierro MANUAL DIFF REQ NO Normal [facility] Comment on above: Performed By: #### P T #### [facility] [address] [place] [address] Dr. Tg Fierro MCH (RBC) [Entitic mass] 31.2 pg Normal 26.7-34.0 [facility] Comment on above: Performed By: #### P T #### [facility] [address] [place] [address] Dr. Tg Fierro MCHC (RBC) [Mass/Vol] 33.1 g/dL Normal 29.9-35.2 [facility] Comment on above: Performed By: #### P T #### [facility] [address] [address] [address] Tg Fierro MCV (RBC) [Entitic vol] 94.3 fL Normal 81.0-99.0 [facility] Comment on above: Performed By: #### P T #### [facility] [address] [address] [address] Tg Fierro MONO # 0.6 103/ul Normal 0.3-0.8 [facility] Comment on above: Performed By: #### P T #### [facility] [address] [place] [address] Dr. Tg Fierro Monocytes/100 WBC (Bld) 8.1 % Normal 1.7-12.0 [facility] Comment on above: Performed By: #### P T #### [facility] [address] [place] [address] Dr. Tg Fierro NEUT # 4.1 103/ul Normal 1.4-6.5 [facility] Comment on above: Performed By: #### P T #### [facility] [address] [place] [address] Dr. Tg Fierro Neutrophils/100 WBC (Bld) 52.7 % Normal 43.0-75.0 [facility] Comment on above: Performed By: #### P T #### [facility] [address] [place] [address] Dr. Tg Fierro Platelet mean volume (Bld) [Entitic vol] 8.7 fL Critically low 9.5-13.5 [facility] Comment on above: Performed By: #### P T #### [facility] [address] [place] [address] Dr. Tg Fierro PLT 278 103/ul Normal 150-450 [facility] Comment on above: Performed By: #### P T #### [facility] [address] [place] [address] Dr. Tg Fierro RBC 4.07 106/ul Critically low 4.20-5.40 [facility] Comment on above: Performed By: #### P T #### [facility] [address] [place] [address] Dr. Tg Fierro WBC 7.7 103/ul Normal 4.0-11.0 [facility] Comment on above: Performed By: #### P T #### [facility] [address] [place] [address] Dr. Tg Fierro PROF 14(COMP METB)on 023 Albumin [Mass/Vol] 3.9 g/dL Normal 3.4-5.0 [facility] Comment on above: Performed By: #### C MP #### [facility] [address] [place] [address] Dr. Tg Fierro Albumin/Globulin [Mass ratio] 1.4 {ratio} Normal [facility] Comment on above: Performed By: #### C MP #### [facility] [address] [place] [address] Dr. Tg Fierro ALP [Catalytic activity/Vol] 59 U/L Normal 46-116 [facility] Comment on above: Performed By: #### C MP #### [facility] [address] [place] [address] Dr. Tg Fierro ALT [Catalytic activity/Vol] 21 U/L Normal 14-59 [facility] Comment on above: Performed By: #### C MP #### [facility] [address] [place] [address] Dr. Tg Fierro Anion gap [Moles/Vol] 10.8 mmol/L Normal [facility] Comment on above: Performed By: #### C MP #### [facility] [address] [place] [address] Dr. Tg Fierro AST [Catalytic activity/Vol] 9 U/L Critically low 15-37 [facility] Comment on above: Performed By: #### C MP #### [facility] [address] [place] [address] Dr. Tg Fierro Bilirubin [Mass/Vol] 0.3 mg/dL Normal 0.2-1.0 [facility] Comment on above: Performed By: #### C MP #### [facility] [address] [address] [address] Tg Fierro Calcium [Mass/Vol] 9.1 mg/dL Normal 8.5-10.1 [facility] Comment on above: Performed By: #### C MP #### [facility] [address] [address] [address] Tg Fierro Chloride [Moles/Vol] 104 mmol/L Normal 98-107 [facility] Comment on above: Performed By: #### C MP #### [facility] [address] [address] [address] Tg Fierro CO2 [Moles/Vol] 28.3 mmol/L Normal 21.0-32.0 [facility] Comment on above: Performed By: #### C MP #### [facility] [address] [address] [address] Tg Fierro Creatinine [Mass/Vol] 0.86 mg/dL Normal 0.55-1.02 [facility] Comment on above: Performed By: #### C MP #### [facility] [address] [address] [address] Tg Fierro EGFR-AF BURMESE >60 Normal >=60 [facility] Comment on above: Performed By: #### C MP #### [facility] [address] [address] [address] Tg Fierro EGFR-NON AF BURMESE >60 Normal >=60 [facility] Comment on above: Performed By: #### C MP #### [facility] [address] [address] [address] Tg Fierro Globulin (S) [Mass/Vol] 2.7 g/dL Normal [facility] Comment on above: Performed By: #### C MP #### [facility] [address] [address] [address] Tg Fierro Glucose [Mass/Vol] 120 mg/dL Critically high 74-106 T [facility] Comment on above: Performed By: #### C MP #### [facility] [address] [address] [address] Tg Fierro Potassium [Moles/Vol] 4.1 mmol/L Normal 3.5-5.1 [facility] Comment on above: Performed By: #### C MP #### [facility] [address] [address] [address] Tg Fierro Protein [Mass/Vol] 6.6 g/dL Normal 6.4-8.[address] [facility] Comment on above: Performed By: #### C MP #### [facility] [address] [address] [address] Tg Fierro Sodium [Moles/Vol] 139 mmol/L Normal 136-[address] [facility] Comment on above: Performed By: #### C MP #### [facility] [address] [address] [address] Tg Fierro Urea nitrogen [Mass/Vol] 13.0 mg/dL Normal 7.0-18.0 [facility] Comment on above: Performed By: #### C MP #### [facility] [address] [address] [address] Tg Fierro Urea nitrogen/Creatinine [Mass ratio] 15.1 mg/mg Normal [facility] Comment on above: Performed By: #### C MP #### [facility] [address] [address] [address] Tg Fierro PROTIMEon 09-24-2022 INR Coag (PPP) [Relative time] 1.35 {INR} Normal [facility] Comment on above: Performed By: #### P T #### [facility] [address] [address] [address] Tg Fierro INR GUIDELINES SEE BELOW Normal [facility] Comment on above: Result Comment: LAURENCE RED INR: 2.0 - 3.0 CONDITIONS NOT LISTED BELOW 2.5 - 3.5 FOR PROSTHETIC HEART VALVE REPLACEMENT 2.5 - 3.5 RECURRENT THROMBOSIS Performed By: #### P T #### [facility] [address] [address] [address] Tg Fierro PT Coag (PPP) [Time] 14.1 s Critically high 9.0-11.6 [facility] Comment on above: Performed By: #### P T #### [facility] [address] [address] [address] Tg Fierro [facility] 8 mm/hr Normal <=30 [facility] Comment on above: Performed By: #### C MP #### [facility] [address] [address] [address] Tg Fierro PROTIMEon 09-09-2022 INR Coag (PPP) [Relative time] 1.23 {INR} Normal [facility] Comment on above: Performed By: #### P T #### [facility] [address] [place] [address] Dr. Tg Fierro INR GUIDELINES SEE BELOW Normal [facility] Comment on above: Result Comment: LAURENCE RED INR: 2.0 - 3.0 CONDITIONS NOT LISTED BELOW 2.5 - 3.5 FOR PROSTHETIC HEART VALVE REPLACEMENT 2.5 - 3.5 RECURRENT THROMBOSIS Performed By: #### P T #### [facility] [address] [place] [address] Dr. Tg Fierro PT Coag (PPP) [Time] 12.9 s Critically high 9.0-11.6 [facility] Comment on above: Performed By: #### P T #### [facility] [address] [place] [address] Dr. Tg Fierro ECHOCARDIO M/2D COMPLETEon 0 09-02-2022 ECHOCARDIO M/2D COMPLETE Patient: WILDA SEN Exam Date: 09/02/2022 : 1945 Gender:F Ordering : DR JAYME PEREZ . Admission #: [id number] Family : Order #: [id number] CLICK HERE TO VIEW EXAM ECHOCARDIOGRAM REPORT [...] on 09/03/2022 at 17:25 Normal [facility] GLYCOHEMOGLOBIN A1Con 2022 ADA RECOMMENDATION SEE BELOW Normal [facility] Comment on above: Result Comment: ADA RECOMMENDED LIMIT 4.0 - 6.0 ADA THERAPEUTIC TARGET < 7.0 ACTION SUGGESTED > 7.0 Performed By: #### A 1C #### [facility] [address] [address] [address] Tg Fierro Glucose [Mass/Vol] 148 mg/dL Normal [facility] Comment on above: Performed By: #### A 1C #### [facility] [address] [place], [place] [address] Dr. Tg Fierro HbA1c (Bld) [Mass fraction] 6.8 % Critically high 4.5-6.2 [facility] Comment on above: Performed By: #### A 1C #### [facility] [address] [place] [address] Dr. Tg Fierro CBC AUTO DIFFon 08-05-2022 BASO # 0.1 103/ul Normal 0.0-0.1 [facility] Comment on above: Performed By: #### C BC #### [facility] [address] [place] [address] Dr. Tg Fierro Basophils/100 WBC (Bld) 0.8 % Normal 0.2-2.0 [facility] Comment on above: Performed By: #### C BC #### [facility] [address] [place] [address] Dr. Tg Fierro EO # 0.5 103/ul Normal 0.0-0.7 [facility] Comment on above: Performed By: #### C BC #### [facility] [address] [place] [address] Dr. Tg Fierro Eosinophils/100 WBC (Bld) 7.3 % Critically high 0.9-7.0 [facility] Comment on above: Performed By: #### C BC #### [facility] [address] [place] [address] Dr. Tg Fierro Erythrocyte distribution width (RBC) [Ratio] 13.4 % Normal 11.0-15.0 [facility] Comment on above: Performed By: #### C BC #### [facility] [address] [place] [address] Dr. Tg Fierro Hematocrit (Bld) [Volume fraction] 37.1 % Normal 36.0-48.0 [facility] Comment on above: Performed By: #### C BC #### [facility] [address] [place] [address] Dr. Tg Fierro Hemoglobin (Bld) [Mass/Vol] 12.9 g/dL Normal 12.0-16.0 [facility] Comment on above: Performed By: #### C BC #### [facility] [address] [place] [address] Dr. Tg Fierro IG # 0.03 10e3/ul Normal 0.00-0.03 [facility] Comment on above: Performed By: #### C BC #### [facility] [address] [place] [address] Dr. Tg Fierro IG % 0.5 % Normal 0.0-0.5 [facility] Comment on above: Performed By: #### C BC #### [facility] [address] [place] [address] Dr. Tg Fierro LYMPH # 2.3 103/ul Normal 1.2-3.8 [facility] Comment on above: Performed By: #### C BC #### [facility] [address] [place] [address] Dr. Tg Fierro Lymphocytes/100 WBC (Bld) 34.9 % Normal 20.5-60.0 [facility] Comment on above: Performed By: #### C BC #### [facility] [address] [place] [address] Dr. Tg Fierro MANUAL DIFF REQ NO Normal [facility] Comment on above: Performed By: #### C BC #### [facility] [address] [place] [address] Dr. Tg Fierro MCH (RBC) [Entitic mass] 31.0 pg Normal 26.7-34.0 [facility] Comment on above: Performed By: #### C BC #### [facility] [address] [place] [address] Dr. Tg Fierro MCHC (RBC) [Mass/Vol] 34.8 g/dL Normal 29.9-35.2 [facility] Comment on above: Performed By: #### C BC #### [facility] [address] [place] [address] Dr. Tg Fierro MCV (RBC) [Entitic vol] 89.2 fL Normal 81.0-99.0 [facility] Comment on above: Performed By: #### C BC #### [facility] [address] [place] [address] Dr. Tg Fierro MONO # 0.4 103/ul Normal 0.3-0.8 [facility] Comment on above: Performed By: #### C BC #### [facility] [address] [address] [address] Tg Fierro Monocytes/100 WBC (Bld) 6.1 % Normal 1.7-12.0 [facility] Comment on above: Performed By: #### C BC #### [facility] [address] [address] [address] Tg Fierro NEUT # 3.3 103/ul Normal 1.4-6.5 [facility] Comment on above: Performed By: #### C BC #### [facility] [address] [address] [address] Tg Fierro Neutrophils/100 WBC (Bld) 50.4 % Normal 43.0-75.0 [facility] Comment on above: Performed By: #### C BC #### [facility] [address] [address] [address] Tg Fierro Platelet mean volume (Bld) [Entitic vol] 8.6 fL Critically low 9.5-13.5 [facility] Comment on above: Performed By: #### C BC #### [facility] [address] [address] [address] Tg Fierro PLT 336 103/ul Normal 150-450 [facility] Comment on above: Performed By: #### C BC #### [facility] [address] [place] [address] Dr. Tg Fierro RBC 4.16 106/ul Critically low 4.20-5.40 [facility] Comment on above: Performed By: #### C BC #### [facility] [address] [address] [address] Tg Fierro WBC 6.4 103/ul Normal 4.0-11.0 [facility] Comment on above: Performed By: #### C BC #### [facility] [address] [address] [address] Tg Fierro PROF 14(COMP METB)on 023 Albumin [Mass/Vol] 3.9 g/dL Normal 3.4-5.0 [facility] Comment on above: Performed By: #### P T #### [facility] [address] [place] [address] Dr. Tg Fierro Albumin/Globulin [Mass ratio] 1.3 {ratio} Normal [facility] Comment on above: Performed By: #### P T #### [facility] [address] [place] [address] Dr. Tg Fierro ALP [Catalytic activity/Vol] 60 U/L Normal 46-116 [facility] Comment on above: Performed By: #### P T #### [facility] [address] [place] [address] Dr. Tg Fierro ALT [Catalytic activity/Vol] 21 U/L Normal 14-59 [facility] Comment on above: Performed By: #### P T #### [facility] [address] [place] [address] Dr. Tg Fierro Anion gap [Moles/Vol] 15.2 mmol/L Normal [facility] Comment on above: Performed By: #### P T #### [facility] [address] [place] [address] Dr. Tg Fierro AST [Catalytic activity/Vol] 14 U/L Critically low 15-37 [facility] Comment on above: Performed By: #### P T #### [facility] [address] [place] [address] Dr. Tg Fierro Bilirubin [Mass/Vol] 0.4 mg/dL Normal 0.2-1.0 [facility] Comment on above: Performed By: #### P T #### [facility] [address] [place] [address] Dr. Tg Fierro Calcium [Mass/Vol] 9.3 mg/dL Normal 8.5-10.[address] [facility] Comment on above: Performed By: #### P T #### [facility] [address] [place] [address] Dr. Tg Fierro Chloride [Moles/Vol] 102 mmol/L Normal 98-107 [facility] Comment on above: Performed By: #### P T #### [facility] [address] [place] [address] Dr. Tg Fierro CO2 [Moles/Vol] 26.8 mmol/L Normal 21.0-32.0 [facility] Comment on above: Performed By: #### P T #### [facility] [address] [place] [address] Dr. Tg Fierro Creatinine [Mass/Vol] 0.74 mg/dL Normal 0.55-1.02 [facility] Comment on above: Performed By: #### P T #### [facility] [address] [place] [address] Dr. Tg Fierro EGFR-AF BURMESE >60 Normal >=60 [facility] Comment on above: Performed By: #### P T #### [facility] [address] [place] [address] Dr. Tg Fierro EGFR-NON AF BURMESE >60 Normal >=60 [facility] Comment on above: Performed By: #### P T #### [facility] [address] [place] [address] Dr. Tg Fierro Globulin (S) [Mass/Vol] 3.1 g/dL Normal [facility] Comment on above: Performed By: #### P T #### [facility] [address] [place] [address] Dr. Tg Fierro Glucose [Mass/Vol] 148 mg/dL Critically high 74-106 [facility] Comment on above: Performed By: #### P T #### [facility] [address] [place] [address] Dr. Tg Fierro Potassium [Moles/Vol] 4.0 mmol/L Normal 3.5-5.1 [facility] Comment on above: Performed By: #### P T #### [facility] [address] [place] [address] Dr. Tg Fierro Protein [Mass/Vol] 7.0 g/dL Normal 6.4-8.[address] [facility] Comment on above: Performed By: #### P T #### [facility] [address] [place] [address] Dr. Tg Fierro Sodium [Moles/Vol] 140 mmol/L Normal 136-145 [facility] Comment on above: Performed By: #### P T #### [facility] [address] [place] [address] Dr. Tg Fierro Urea nitrogen [Mass/Vol] 12.0 mg/dL Normal 7.0-18.0 [facility] Comment on above: Performed By: #### P T #### [facility] [address] [place] [address] Dr. Tg Fierro Urea nitrogen/Creatinine [Mass ratio] 16.2 mg/mg Normal [facility] Comment on above: Performed By: #### P T #### [facility] [address] [place] [address] Dr. Tg Fierro SED RATE WHITETHORNERGREN 2022 SED RATE 30 mm/hr Normal <=30 [facility] Comment on above: Performed By: #### S EDR #### [facility] [address] [place] [address] Dr. Tg Fierro CBC AUTO DIFFon 04-15-2022 BASO # 0.1 103/ul Normal 0.0-0.1 [facility] Comment on above: Performed By: #### C BC #### [facility] [address] [place] [address] Dr. Tg Fierro Basophils/100 WBC (Bld) 0.6 % Normal 0.2-2.0 [facility] Comment on above: Performed By: #### C BC #### [facility] [address] [place] [address] Dr. Tg Fierro EO # 0.2 103/ul Normal 0.0-0.7 [facility] Comment on above: Performed By: #### C BC #### [facility] [address] [place] [address] Dr. Tg Fierro Eosinophils/100 WBC (Bld) 3.1 % Normal 0.9-7.0 [facility] Comment on above: Performed By: #### C BC #### [facility] [address] [place] [address] Dr. Tg Fierro Erythrocyte distribution width (RBC) [Ratio] 13.6 % Normal 11.0-15.0 [facility] Comment on above: Performed By: #### C BC #### [facility] [address] [place] [address] Dr. Tg Fierro Hematocrit (Bld) [Volume fraction] 42.3 % Normal 36.0-48.0 [facility] Comment on above: Performed By: #### C BC #### [facility] [address] [place] [address] Dr. Tg Fierro Hemoglobin (Bld) [Mass/Vol] 13.2 g/dL Normal 12.0-16.0 [facility] Comment on above: Performed By: #### C BC #### [facility] [address] [place] [address] Dr. Tg Fierro IG # 0.04 10e3/ul Critically high 0.00-0.03 [facility] Comment on above: Performed By: #### C BC #### [facility] [address] [place] [address] Dr. Tg Fierro IG % 0.5 % Normal 0.0-0.5 [facility] Comment on above: Performed By: #### C BC #### [facility] [address] [place] [address] Dr. Tg Fierro LYMPH # 2.5 103/ul Normal 1.2-3.8 [facility] Comment on above: Performed By: #### C BC #### [facility] [address] [place] [address] Dr. Tg Fierro Lymphocytes/100 WBC (Bld) 31.6 % Normal 20.5-60.0 [facility] Comment on above: Performed By: #### C BC #### [facility] [address] [place] [address] Dr. Tg Fierro MANUAL DIFF REQ NO Normal [facility] Comment on above: Performed By: #### C BC #### [facility] [address] [place] [address] Dr. Tg Fierro MCH (RBC) [Entitic mass] 30.3 pg Normal 26.7-34.0 [facility] Comment on above: Performed By: #### C BC #### [facility] [address] [address] [address] Tg Fierro MCHC (RBC) [Mass/Vol] 31.2 g/dL Normal 29.9-35.2 [facility] Comment on above: Performed By: #### C BC #### [facility] [address] [address] [address] Tg Fierro MCV (RBC) [Entitic vol] 97.0 fL Normal 81.0-99.0 [facility] Comment on above: Performed By: #### C BC #### [facility] [address] [place] [address] Dr. Tg Fierro MONO # 0.5 103/ul Normal 0.3-0.8 [facility] Comment on above: Performed By: #### C BC #### [facility] [address] [place] [address] Dr. Tg Fierro Monocytes/100 WBC (Bld) 6.3 % Normal 1.7-12.0 [facility] Comment on above: Performed By: #### C BC #### [facility] [address] [place] [address] Dr. Tg Fierro NEUT # 4.5 103/ul Normal 1.4-6.5 [facility] Comment on above: Performed By: #### C BC #### [facility] [address] [place] [address] Dr. Tg Fierro Neutrophils/100 WBC (Bld) 57.9 % Normal 43.0-75.0 [facility] Comment on above: Performed By: #### C BC #### [facility] [address] [place] [address] Dr. Tg Fierro Platelet mean volume (Bld) [Entitic vol] 8.6 fL Critically low 9.5-13.5 [facility] Comment on above: Performed By: #### C BC #### [facility] [address] [place] [address] Dr. Tg Fierro PLT 295 103/ul Normal 150-450 [facility] Comment on above: Performed By: #### C BC #### [facility] [address] [place] [address] Dr. Tg Fierro RBC 4.36 106/ul Normal 4.20-5.40 [facility] Comment on above: Performed By: #### C BC #### [facility] [address] [place] [address] Dr. Tg Fierro WBC 7.8 103/ul Normal 4.0-11.0 [facility] Comment on above: Performed By: #### C BC #### [facility] [address] [address] [address] Tg Fierro PROF 14(COMP METB)on 022 Albumin [Mass/Vol] 4.5 g/dL Normal 3.4-5.0 [facility] Comment on above: Performed By: #### C MP #### [facility] [address] [place] [address] Dr. Tg Fierro Albumin/Globulin [Mass ratio] 1.5 {ratio} Normal [facility] Comment on above: Performed By: #### C MP #### [facility] [address] [place] [address] Dr. Tg Fierro ALP [Catalytic activity/Vol] 62 U/L Normal 46-116 [facility] Comment on above: Performed By: #### C MP #### [facility] [address] [place] [address] Dr. Tg Fierro ALT [Catalytic activity/Vol] 25 U/L Normal 14-59 [facility] Comment on above: Performed By: #### C MP #### [facility] [address] [place] [address] Dr. Tg Fierro Anion gap [Moles/Vol] 10.6 mmol/L Normal [facility] Comment on above: Performed By: #### C MP #### [facility] [address] [place] [address] Dr. Tg Fierro AST [Catalytic activity/Vol] 12 U/L Critically low 15-37 [facility] Comment on above: Performed By: #### C MP #### [facility] [address] [address] [address] Tg Fierro Bilirubin [Mass/Vol] 0.5 mg/dL Normal 0.2-1.0 [facility] Comment on above: Performed By: #### C MP #### [facility] [address] [address] [address] Tg Fierro Calcium [Mass/Vol] 9.8 mg/dL Normal 8.5-10.1 [facility] Comment on above: Performed By: #### C MP #### [facility] [address] [address] [address] Tg Fierro Chloride [Moles/Vol] 102 mmol/L Normal 98-107 [facility] Comment on above: Performed By: #### C MP #### [facility] [address] [place] [address] Dr. Tg Fierro CO2 [Moles/Vol] 31.8 mmol/L Normal 21.0-32.0 [facility] Comment on above: Performed By: #### C MP #### [facility] [address] [place] [address] Dr. Tg Fierro Creatinine [Mass/Vol] 0.88 mg/dL Normal 0.55-1.02 [facility] Comment on above: Performed By: #### C MP #### [facility] [address] [place] [address] Dr. Tg Fierro EGFR-AF BURMESE >60 Normal >=60 [facility] Comment on above: Performed By: #### C MP #### [facility] [address] [place] [address] Dr. Tg Fierro EGFR-NON AF BURMESE >60 Normal >=60 [facility] Comment on above: Performed By: #### C MP #### [facility] [address] [place] [address] Dr. Tg Fierro Globulin (S) [Mass/Vol] 3.1 g/dL Normal [facility] Comment on above: Performed By: #### C MP #### [facility] [address] [place] [address] Dr. Tg Fierro Glucose [Mass/Vol] 187 mg/dL Critically high 74-106 [facility] Comment on above: Performed By: #### C MP #### [facility] [address] [address] [address] Tg Fierro Potassium [Moles/Vol] 4.4 mmol/L Normal 3.5-5.1 [facility] Comment on above: Performed By: #### C MP #### [facility] [address] [place] [address] Dr. Tg Fierro Protein [Mass/Vol] 7.6 g/dL Normal 6.4-8.2 [facility] Comment on above: Performed By: #### C MP #### [facility] [address] [place] [address] Dr. Tg Fierro Sodium [Moles/Vol] 140 mmol/L Normal 136-145 [facility] Comment on above: Performed By: #### C MP #### [facility] [address] [place] [address] Dr. Tg Fierro Urea nitrogen [Mass/Vol] 14.0 mg/dL Normal 7.0-18.0 [facility] Comment on above: Performed By: #### C MP #### [facility] [address] [place] [address] Dr. Tg Fierro Urea nitrogen/Creatinine [Mass ratio] 15.9 mg/mg Normal [facility] Comment on above: Performed By: #### C MP #### [facility] [address] [place] [address] Dr. Tg Fierro SED RATE WESTERGRENon 2021 SED RATE 5 mm/hr Normal <=30 [facility] Comment on above: Performed By: #### S EDR #### [facility] [address] [place] [address] Dr. Tg Fierro CBC AUTO DIFFon 02-07-2022 BASO # 0.0 103/ul Normal 0.0-0.1 [facility] Comment on above: Performed By: #### P T #### [facility] [address] [place] [address] Dr. Tg Fierro Basophils/100 WBC (Bld) 0.6 % Normal 0.2-2.0 [facility] Comment on above: Performed By: #### P T #### [facility] [address] [place] [address] Dr. Tg Fierro EO # 0.4 103/ul Normal 0.0-0.7 [facility] Comment on above: Performed By: #### P T #### [facility] [address] [place] [address] Dr. Tg Fierro Eosinophils/100 WBC (Bld) 5.4 % Normal 0.9-7.0 [facility] Comment on above: Performed By: #### P T #### [facility] [address] [place] [address] Dr. gT Fierro Erythrocyte distribution width (RBC) [Ratio] 13.5 % Normal 11.0-15.0 [facility] Comment on above: Performed By: #### P T #### [facility] [address] [place] [address] Dr. Tg Fierro Hematocrit (Bld) [Volume fraction] 39.4 % Normal 36.0-48.0 [facility] Comment on above: Performed By: #### P T #### [facility] [address] [place] [address] Dr. Tg Fierro Hemoglobin (Bld) [Mass/Vol] 12.8 g/dL Normal 12.0-16.0 [facility] Comment on above: Performed By: #### P T #### [facility] [address] [place] [address] Dr. Tg Fierro IG # 0.02 10e3/ul Normal 0.00-0.03 [facility] Comment on above: Performed By: #### P T #### [facility] [address] [place] [address] Dr. Tg Fierro IG % 0.3 % Normal 0.0-0.5 [facility] Comment on above: Performed By: #### P T #### [facility] [address] [place] [address] Dr. Tg Fierro LYMPH # 2.4 103/ul Normal 1.2-3.8 [facility] Comment on above: Performed By: #### P T #### [facility] [address] [place] [address] Dr. Tg Fierro Lymphocytes/100 WBC (Bld) 36.2 % Normal 20.5-60.0 [facility] Comment on above: Performed By: #### P T #### [facility] [address] [place] [address] Dr. Tg Fierro MANUAL DIFF REQ NO Normal [facility] Comment on above: Performed By: #### P T #### [facility] [address] [place] [address] Dr. Tg Fierro MCH (RBC) [Entitic mass] 31.0 pg Normal 26.7-34.0 [facility] Comment on above: Performed By: #### P T #### [facility] [address] [place] [address] Dr. Tg Fierro MCHC (RBC) [Mass/Vol] 32.5 g/dL Normal 29.9-35.2 [facility] Comment on above: Performed By: #### P T #### [facility] [address] [place] [address] Dr. Tg Fierro MCV (RBC) [Entitic vol] 95.4 fL Normal 81.0-99.0 [facility] Comment on above: Performed By: #### P T #### [facility] [address] [place] [address] Dr. Tg Fierro MONO # 0.5 103/ul Normal 0.3-0.8 [facility] Comment on above: Performed By: #### P T #### [facility] [address] [place] [address] Dr. Tg Fierro Monocytes/100 WBC (Bld) 8.0 % Normal 1.7-12.0 [facility] Comment on above: Performed By: #### P T #### [facility] [address] [place] [address] Dr. Tg Fierro NEUT # 3.3 103/ul Normal 1.4-6.5 [facility] Comment on above: Performed By: #### P T #### [facility] [address] [address] [address] Tg Fierro Neutrophils/100 WBC (Bld) 49.5 % Normal 43.0-75.0 [facility] Comment on above: Performed By: #### P T #### [facility] [address] [address] [address] Tg Fierro Platelet mean volume (Bld) [Entitic vol] 8.7 fL Critically low 9.5-13.5 [facility] Comment on above: Performed By: #### P T #### [facility] [address] [address] [address] Tg Fierro PLT 276 103/ul Normal 150-450 [facility] Comment on above: Performed By: #### P T #### [facility] [address] [address] [address] Tg Fierro RBC 4.13 106/ul Critically low 4.20-5.40 [facility] Comment on above: Performed By: #### P T #### [facility] [address] [address] [address] Tg Fierro WBC 6.7 103/ul Normal 4.0-11.0 [facility] Comment on above: Performed By: #### P T #### [facility] [address] [address] [address] Tg Fierro GLYCOHEMOGLOBIN A1Con 2021 ADA RECOMMENDATION SEE BELOW Normal [facility] Comment on above: Result Comment: ADA RECOMMENDED LIMIT 4.0 - 6.0 ADA THERAPEUTIC TARGET < 7.0 ACTION SUGGESTED > 7.0 Performed By: #### A 1C #### [facility] [address] [place] [address] Dr. Tg Fierro Glucose [Mass/Vol] 151 mg/dL Normal [facility] Comment on above: Performed By: #### A 1C #### [facility] [address] [address] [address] Tg Fierro HbA1c (Bld) [Mass fraction] 6.9 % Critically high 4.5-6.2 [facility] Comment on above: Performed By: #### A 1C #### [facility] [address] [place] [address] Dr. Tg Fierro PROF 14(COMP METB)on 022 Albumin [Mass/Vol] 3.8 g/dL Normal 3.4-5.0 [facility] Comment on above: Performed By: #### P T #### [facility] [address] [place] [address] Dr. Tg Fierro Albumin/Globulin [Mass ratio] 1.3 {ratio} Normal [facility] Comment on above: Performed By: #### P T #### [facility] [address] [place] [address] Dr. Tg Fierro ALP [Catalytic activity/Vol] 43 U/L Critically low 46-116 [facility] Comment on above: Performed By: #### P T #### [facility] [address] [place] [address] Dr. Tg Fierro ALT [Catalytic activity/Vol] 19 U/L Normal 14-59 [facility] Comment on above: Performed By: #### P T #### [facility] [address] [place] [address] Dr. Tg Fierro Anion gap [Moles/Vol] 13.7 mmol/L Normal [facility] Comment on above: Performed By: #### P T #### [facility] [address] [place] [address] Dr. Tg Fierro AST [Catalytic activity/Vol] 11 U/L Critically low 15-37 [facility] Comment on above: Performed By: #### P T #### [facility] [address] [place] [address] Dr. Tg Fierro Bilirubin [Mass/Vol] 0.4 mg/dL Normal 0.2-1.0 [facility] Comment on above: Performed By: #### P T #### [facility] [address] [place] [address] Dr. Tg Fierro Calcium [Mass/Vol] 9.1 mg/dL Normal 8.5-10.1 [facility] Comment on above: Performed By: #### P T #### [facility] [address] [place] [address] Dr. Tg Fierro Chloride [Moles/Vol] 104 mmol/L Normal 98-107 [facility] Comment on above: Performed By: #### P T #### [facility] [address] [place] [address] Dr. Tg Fierro CO2 [Moles/Vol] 28.5 mmol/L Normal 21.0-32.0 [facility] Comment on above: Performed By: #### P T #### [facility] [address] [place] [address] Dr. Tg Fierro Creatinine [Mass/Vol] 0.77 mg/dL Normal 0.55-1.02 [facility] Comment on above: Performed By: #### P T #### [facility] [address] [place] [address] Dr. Tg Fierro EGFR-AF BURMESE >60 Normal >=60 [facility] Comment on above: Performed By: #### P T #### [facility] [address] [place] [address] Dr. Tg Fierro EGFR-NON AF BURMESE >60 Normal >=60 [facility] Comment on above: Performed By: #### P T #### [facility] [address] [place] [address] Dr. Tg Fierro Globulin (S) [Mass/Vol] 3.0 g/dL Normal [facility] Comment on above: Performed By: #### P T #### [facility] [address] [place] [address] Dr. Tg Fierro Glucose [Mass/Vol] 124 mg/dL Critically high 74-106 [facility] Comment on above: Performed By: #### P T #### [facility] [address] [place] [address] Dr. Tg Fierro Potassium [Moles/Vol] 4.2 mmol/L Normal 3.5-5.1 [facility] Comment on above: Performed By: #### P T #### [facility] [address] [address] [address] Tg Fierro Protein [Mass/Vol] 6.8 g/dL Normal 6.4-8.2 [facility] Comment on above: Performed By: #### P T #### [facility] [address] [address] [address] Tg Fierro Sodium [Moles/Vol] 142 mmol/L Normal 136-145 [facility] Comment on above: Performed By: #### P T #### [facility] [address] [address] [address] Tg Fierro Urea nitrogen [Mass/Vol] 12.0 mg/dL Normal 7.0-18.0 [facility] Comment on above: Performed By: #### P T #### [facility] [address] [address] [address] Tg Fierro Urea nitrogen/Creatinine [Mass ratio] 15.6 mg/mg Normal [facility] Comment on above: Performed By: #### P T #### [facility] [address] [address] [address] Tg Fierro SED RATE [facility] 2021 SED RATE 8 mm/hr Normal <=30 [facility] Comment on above: Performed By: #### C MP #### [facility] [address] [address] [address] Tg Fierro COVID Quick Testingon 2020 Result Positive [employer] Other Vital Signs Date Time Vital Sign Value Performing Clinician Facility 08-13-2023 10:47-0500 Blood Pressure Location Renato SANTACRUZ [facility] 08-13-2023 10:47-0500 Diastolic blood pressure 62 mm[Hg] Renato SANTACRUZ [facility] 08-13-2023 10:47-0500 Heart rate 82 /min Renato SANTACRUZ [facility] 08-13-2023 10:47-0500 Respiratory rate 16 /min Renato SANTACRUZ [facility] 08-13-2023 10:47-0500 Systolic blood pressure 105 mm[Hg] Renato SANTACRUZ [facility] 07-25-2023 09:20-0500 Body height 160.02 cm Lou Glover Other [employer] Other 07-25-2023 09:20-0500 Body mass index (BMI) [Ratio] 23.91 kg/m2 Lou Glover Other [employer] Other 07-25-2023 09:20-0500 Body temperature 97.7 [degF] Lou Glover Other [employer] Other 07-25-2023 09:20-0500 Body weight 61.24 kg Lou Glover Other [employer] Other 07-25-2023 09:20-0500 Diastolic blood pressure 74 mm[Hg] Lou Glover Other [employer] Other 07-25-2023 09:20-0500 Respiratory rate 18 /min Lou Glover Other [employer] Other 07-25-2023 09:20-0500 SaO2% (BldA) [Mass fraction] 96 % Lou Glover Other [employer] Other 07-25-2023 09:20-0500 Systolic blood pressure 120 mm[Hg] Lou Glover Other [employer] Other 03-26-2023 13:15-0400 Body height 160.02 cm MD Jayme Perez Work Phone: [place] 03-26-2023 13:15-0400 Body temperature 98.2 [degF] MD Jayme Perez Work Phone: [place] 03-26-2023 13:15-0400 Body weight 66 kg MD Jayme Perez Work Phone: [place] 03-26-2023 13:15-0400 Diastolic blood pressure 71 mm[Hg] MD Jayme Perez Work Phone: [place] 03-26-2023 13:15-0400 Heart rate 87 /min MD Jayme Perez Work Phone: [place] 03-26-2023 13:15-0400 Respiratory rate 16 /min MD Jayme Perez Work Phone: [place] 03-26-2023 13:15-0400 SaO2% (BldA) [Mass fraction] 97 % MD Jayme Perez Work Phone: [place] 03-26-2023 13:15-0400 Systolic blood pressure 117 mm[Hg] MD Jayme Perez Work Phone: [place] 05-21-2021 13:15-0500 Body height 160.02 cm Astrid Bakre Other [employer] Other 05-21-2021 13:15-0500 Body mass index (BMI) [Ratio] 23.91 kg/m2 Astrid Baker Other [employer] Other 05-21-2021 13:15-0500 Body temperature 97.3 [degF] Astrid Baker Other [employer] Other 05-21-2021 13:15-0500 Body weight 61.24 kg Astrid Baker Other [employer] Other 05-21-2021 13:15-0500 SaO2% (BldA) [Mass fraction] 94 % Astrid Baker Other [employer] Other Encounters Encounter Date Encounter Type Care Provider Facility Start: 07-12-2024 ambulatory Williams SHEPHERD Facility :[facility] Start: 10-14-2023 ambulatory Williams SHEPHERD Facility :[facility] Start: 08-14-2023 ambulatory Renato Liu ty:[id number] Start: 08-13-2023 ambulatory Renato Liu ty:[facility] Start: 08-13-2023 End: 08-13-2023 Patient encounter procedure Renato SANTACRUZ [facility] Start: 08-07-2023 End: 08-07-2023 ambulatory JAYME PEREZ Not Available Start: 07-30-2023 End: 07-30-2023 ambulatory JAYME PEREZ Not Available Start: 07-25-2023 End: 07-25-2023 ambulatory Lou Glover Other [employer] Other Start: 07-25-2023 Office outpatient visit 25 minutes Lou Glover [facility] Start: 07-10-2023 End: 07-10-2023 ambulatory FELICIA D ZAHLER Not Available Start: 07-02-2023 End: 07-02-2023 ambulatory FELICIA D ZAHLER Not Available Start: 06-25-2023 End: 06-25-2023 ambulatory FELICIA D ZAHLER Not Available Start: 06-18-2023 End: 06-18-2023 ambulatory FELICIA D ZAHLER Not Available Start: 04-07-2023 End: 04-07-2023 ambulatory Williams Shepherd Facility:[place] Start: 04-07-2023 End: 04-07-2023 Departed Referred MD Jayme Perez Work Phone: [facility] [place] Start: 04-07-2023 End: 04-08-2023 ambulatory MD Jayme Perez Work Phone: [facility] Work Phone: Start: 03-26-2023 End: 03-26-2023 ambulatory Williams Shepherd Facility:[place] Start: 03-26-2023 End: 03-26-2023 Patient encounter procedure MD Jayme Perez Work Phone: [facility] Work Phone: Start: 03-20-2023 End: 03-21-2023 ambulatory Williams SHEPHERD [place] Start: 03-20-2023 End: 03-20-2023 Lab Drop off Williams SHEPHERD [facility] Start: 03-20-2023 End: 03-20-2023 Patient encounter procedure Williams SHEPHERD [facility] Start: 02-03-2023 End: 02-04-2023 ambulatory Williams SHEPHERD Facility:[facility] Start: 11-11-2022 End: 12-11-[address] [...] 05-21-2021 End: 05-21-2021 ambulatory Astrid Baker Other [employer] Other Start: 05-21-2021 Office outpatient visit 15 minutes Astrid Baker [facility] Procedures Date Procedure Procedure Detail Performing Clinician Start: 08-26-2019 Extracorporeal shock wave lithotripsy of calculus of kidney [facility] Start: 04-12-2016 Cystoscopic laser lithotripsy of ureteric calculus [facility] Start: 03-28-2016 Cystoscopic removal of ureteric stent [facility] Start: 02-15-2016 Extracorporeal shock wave lithotripsy of calculus of kidney [facility] Start: 01-16-2016 Endoscopic retrograd e pyelogram [facility] Start: 06-29-2013 Extracorporeal shock wave lithotripsy of calculus of kidney [facility] Start: 09-10-2010 Cystoscopic removal of ureteric stent [facility] [employer] Start: 08-29-2010 Extracorporeal shock wave lithotripsy of calculus of kidney [facility] [employer] Start: 08-23-2010 Cystoscopic insertio n of ureteric stent [facility] Start: 03-02-2008 Endoscopic retrograd e pyelogram [facility] [employer] Start: 10-16-2004 Cystoscopic anastomo sis of ureter to bladder with insertion of stent into ureter Williams SHEPHERD Abdominal hysterectomy Bhavesh SANTACRUZ Appendectomy Renato SANTACRUZ Extraction of cataract Bhavesh SANTACRUZ Partial lobectomy of lung Pa gamal SANTACRUZ Tonsillectomy Renato SANTACRUZ Plan of Treatment Date Care Activity Detail Author Start: 04-07-2023 Abdomen endoscopy OR Cysto/Retro/Stent/Stone /Holmium Laser (Right) [place] Immunizations Immunization Date Immunization Notes Care Provider Yaya oswald NEGATED: Highlighted row has not occurred!08-13-2023 influenza virus vaccine, unspecified formulation Renato SANTACRUZ [facility] NEGATED: Highlighted row has not occurred!08-13-2023 SARS-CoV-2 mRNA (tozinameran 5y-11y) vaccine Renato SANTACRUZ [facility] NEGATED: Highlighted row has not occurred!09-21-2019 influenza virus vaccine, live, attenuated, for intranasal use [employer] [employer] [facility] NEGATED: Highlighted row has not occurred!08-20-2019 influenza virus vaccine, live, attenuated, for intranasal use [employer] [employer] [facility] Payers Date Payer Category Payer Self-pay [id number] 2022 Medicare [id number] 1958 Medicare [id number] 2.1 [id number] 1959 Unknown [id number] 1945 Unknown [id number] 2.16.84 0.1.516799.3.579.2.593 1946 Unknown [id number] 2.16.84 0.1.174031.3.579.2.593 1946 Unknown [id number] 2.16.84 0.1.669975.3.579.2.593 1946 Unknown [id number] 2.16.84 0.1.655394.3.579.2.593 1946 Unknown [id number] 2.16.84 0.1.184355.3.579.2.593 1946 Unknown [id number] 2.16.84 0.1.329875.3.579.2.593 1946 Unknown [id number] 2.16.84 0.1.540958.3.579.2.593 1946 Unknown [id number] 2.16.84 0.1.523228.3.579.2.593 1946 Unknown [id number] 2.16.84 0.1.708198.3.579.2.593 1946 Unknown [id number] 2.16.84 0.1.569476.3.579.2.593 1946 Unknown [id number] 2.16.84 0.1.767132.3.579.2.593 1946 Unknown [id number] 2.16.84 0.1.909372.3.579.2.593 1946 Unknown [id number] 2.16.84 0.1.610464.3.579.2.593 1946 Unknown [id number] 2.16.84 0.1.627742.3.579.2.1259 1946 Unknown [id number] 2.16.84 0.1.785863.3.579.2.1259 1946 Unknown [id number] 2.16.840 .1.211311.3.579.2.1259 1946 Unknown [id number] 2.16.840 .1.660988.3.579.2.1259 1946 Unknown [id number] 2.16.840 .1.468991.3.579.2.1259 1946 Unknown [id number] 2.16.840 .1.971630.3.579.2.1259 1946 Unknown [id number] 2.16.8 40.1.442642.3.579.2.727 1946 Unknown [id number] 2.16.8 40.1.401199.3.579.2.727 1946 Unknown [id number] 2.16.8 40.1.399113.3.579.2.727 1946 Unknown [id number] 2.16.8 40.1.882673.3.579.2.727 1946 Unknown [id number] 2.16.8 40.1.267954.3.579.2.727 1946 Unknown [id number] 2.16.8 40.1.116419.3.579.2.727 Unknown [id number] 2.16.8 40.1.819013.3.579.2.531 Unknown [id number] 2.16.8 40.1.883149.3.579.2.531 Social History Date Type Detail Facility Sex Assigned At [employer] Other Start: 02-03-2023 End: 08-13-2023 Tobacco smoking status Ex-smoker (finding) [facility] Tobacco smoking status Never [facility] Sex Assigned At Female [facility] Start: 1945 Sex Assigned At Female [facility] Functional Status Date Assessment Result Facility 08-13-2023 Functional Status N/A [facility] Clinical Notes 02-21-2022 to 08-13-2023 Note Date & Type Note Facility 08-13-2023 Hospital Discharg e instructions Patient Education 08/13/2023 11:34:50 Laser Therapy for Kidney Stones Laser Therapy for Kidney Stones Laser therapy for kidney stones is a procedure to break up small, hard mineral deposits that form in the kidney (kidney stones). The procedure is done using a device that produces a focused beam of light (laser). The laser breaks up kidney stones into pieces that are small enough to be passed out of the body through urination or removed from the body during the procedure. You may need laser therapy if you have kidney stones that are painful or block your urinary tract. This procedure is done by inserting a tube (ureteroscope) into your kidney through the urethral opening. The urethra is the part of the body that drains urine from the bladder. In women, the urethra opens above the vaginal opening. In men, the urethra opens at the tip of the penis. The ureteroscope is inserted through the urethra, and surgical instruments are moved through the bladder and the muscular tube that connects the kidney to the bladder (ureter) until they reach the kidney. Tell a health care provider about: Any allergies you have. All medicines you are taking, including vitamins, herbs, eye drops, creams, and eibs-zok-xmdlgdz medicines. Any problems you or family members have had with anesthetic medicines. Any blood disorders you have. Any surgeries you have had. Any medical conditions you have. Whether you are or may be . What are the risks? Generally, this is a safe procedure. However, problems may occur, including: Infection. Bleeding. Allergic reactions to medicines. Damage to the urethra, bladder, or ureter. Urinary tract infection (UTI). Narrowing of the urethra (urethral stricture). Difficulty passing urine. Blockage of the kidney caused by a fragment of kidney stone. What happens before the procedure? Medicines Ask your health care provider about: ?Changing or stopping your regular medicines. This is especially important if you are taking diabetes medicines or blood thinners. ?Taking medicines such as aspirin and ibuprofen. These medicines can thin your blood. Do not take these medicines unless your health care provider tells you to take them. ?Taking eduw-kfv-rgicqgs medicines, vitamins, herbs, and supplements. Eating and drinking Follow instructions from your health care provider about eating and drinking, which may include: 8 hours before the procedure stop eating heavy meals or foods, such as meat, fried foods, or fatty foods. 6 hours before the procedure stop eating light meals or foods, such as toast or cereal. 6 hours before the procedure stop drinking milk or drinks that contain milk. 2 hours before the procedure stop drinking clear liquids. Staying hydrated Follow instructions from your health care provider about hydration, which may include: Up to 2 hours before the procedure you may continue to drink clear liquids, such as water, clear fruit juice, black coffee, and plain tea. General instructions You may have a physical exam before the procedure. You may also have tests, such as imaging tests and blood or urine tests. If your ureter is too narrow, your health care provider may place a soft, flexible tube (stent) inside of it. The stent may be placed days or weeks before your laser therapy procedure. Plan to have someone take you home from the hospital or clinic. If you will be going home right after the procedure, plan to have someone stay with you for 24 hours. Do not use any products that contain nicotine or tobacco for at least 4 weeks before the procedure. These products include cigarettes, e-cigarettes, and chewing tobacco. If you need help quitting, ask your health care provider. Ask your health care provider: ?How your surgical site will be marked or identified. ?What steps will be taken to help prevent infection. These may include: ?Removing hair at the surgery site. ?Washing skin with a germ-killing soap. ?Taking antibiotic medicine. What happens during the procedure? An IV will be inserted into one of your veins. You will be given one or more of the following: ?A medicine to help you relax (sedative). ?A medicine to numb the area (local anesthetic). ?A medicine to make you fall asleep (general anesthetic). A ureteroscope will be inserted into your urethra. The ureteroscope will send images to a video screen in the operating room to guide your surgeon to the area of your kidney that will be treated. A small, flexible tube will be threaded through the ureteroscope and into your bladder and ureter, up to your kidney. The laser device will be inserted into your kidney through the tube. Your surgeon will pulse the laser on and off to break up kidney stones. A surgical instrument that has a tiny wire basket may be inserted through the tube into your kidney to remove the pieces of broken kidney stone. The procedure may vary among health care providers and hospitals. What happens after the procedure? Your blood pressure, heart rate, breathing rate, and blood oxygen level will be monitored until you leave the hospital or clinic. You will be given pain medicine as needed. You may continue to receive antibiotics. You may have a stent temporarily placed in your ureter. Do not drive for 24 hours if you were given a sedative during your procedure. You may be given a strainer to collect any stone fragments that you pass in your urine. Your health care provider may have these tested. This information is not intended to replace advice given to you by your health care provider. Make sure you discuss any questions you have with your health care provider. Document Revised: 11/06/2022 Document Reviewed: 03/04/2022 [employer] Patient Education 2022 [email or web address] Follow Up Care 08/12/2023 14:37:00 With:ANGELITO AGUIAR, Renato Arzola, URL Address: [facility] [address] , [place] [phone]- [phone] When: Unknown Comments:sched ureteroscopyf/u w/ [facility] scheduled 10/14/23 [facility] 07-25-2023 Evaluation note Encounter Date Diagnosis Assessment [...] care as directed rx of steroid and [place], cool mist humidification. May use Tylenol as directed. Immediate eval for signs of respiratory distress, difficulty breathing poor PO intake, signs of dehydration, fever, or other concerning symptoms. Otherwise, follow up with PCP in 2-3 days. Patient verbalizes understanding and is agreeable to treatment plan. Patient sent home in stable condition. [employer] Other 08-11-2022 NotePROCEDURE: XR FOOT LT MIN 3 VIEWS COMPARISON: None. HISTORY: Pain in left foot FINDINGS: BONES:No acute fracture or dislocation. Mild enthesopathic spurring of the calcaneus. SOFT TISSUES:Negative. No visible soft tissue swelling. EFFUSION:None visible. OTHER: Negative. IMPRESSION: Mild enthesopathic spurring of the calcaneus Electronically authenticated by: BLANCA ZAVALA Date: 2022-02-21 [facility]28[facility] Future App[facility]ments Appointment Date:07/12/2024 10:45:00 AM Scheduled Provider:Williams SHEPHERD [facility] Type:[facility] Office Visit [facility] Evaluation + Plan note Future Appointments Appointment Date:07/12/2024 10:45:00 AM Scheduled Provider:Williams SHEPHERD [place] [place] Appointment Type:URO Office Visit Diagnostic Tests Pending * Calculi Analysis [facility] [facility] Future Appointments Appointment Date:10/14/2023 09:15:00 AM Scheduled Provider:Williams SHEPHERD MD [place] [place] Appointment Type:URO Office Visit Appointment Date:07/12/2024 10:45:00 AM Scheduled Provider:Williams SHEPHERD MD [facility] App[facility] Type:URO Office Visit [facility] [employer] Other Evaluation noteNo assessment information available [facility] Work Phone: History general [facility] - [facility] [employer] Other History general Narrative - Reported* Type Description Date Medical History Arthritis Medical History diabetes mallitus Surgical History cataract surgery [facility] [employer] Other Hospital course Narrative No data available for this section [facility] Hospital Discharge instructions No data available for this section [facility] [employer] [place] note No data available for this section [facility] Summary Purpose Family History Relationship Condition Age at Onset Recorded Date/T ramiro Not Specified Heart disease Unknown father Cystic fibrosis Unknown Advance Directives Advance Directive Response Recorded Date/ Time Advance Directives No May 06, 2017 4:21pm Chief Complaint and Reason for Visit Chief Complaint Kidney Stones Kidney Stones Additional Source Comments INFORMATION SOURCE (unrecogn ized section and content) DATE CREATED AUTHOR 12/20/2022 [facility] DATE CREATED AUTHOR AUTHOR'S ORGANIZ ATION 06/09/2023 [facility] DATE CREATED AUTHOR AUTHOR'S ORGANIZ ATION 08/08/2023 [facility] EPIC DATE CREATED AUTHOR AUTHOR'S ORGANIZ ATION 08/13/2023 [facility] Patient Care team informatio n (unrecognized section and content) Personnel Name: CHRIS AGUIAR, JAYME Hazel Address: Address: [address] [place] [address] Team Status: Active Member Role Status Dates [...] BE BASED ON THE PRIMARY CLINICAL RECORDS. [employer] provides no warranty or guarantee of the accuracy or completeness of information in this document.
[2023-08-14 08:12] LABS: INR 1.15; Prothrombin Time 12.1 sec (9.0-11.6)
[2023-08-14 08:15] LABS: Glucometer 158 mg/dL (74-106)
[2023-08-14] MEDS: LACTATED RINGER'S SOLUTION 1,000 ML 50 ML IV ×2 (08:38→11:53)
[2023-08-14] MEDS: CEFAZOLIN SODIUM/DEXTROSE,ISO 1 GM/50 ML IV.SOLN IV (09:39)
--- NOTE | 2023-08-14 10:16 | P.URON_ITS ---
Urology Surgery Operative Note Operative Note Procedure Date: 08/14/23 Time Out Performed: yes Pre-op Diagnosis: Obstructing right ureteral calculus Post-op Diagnosis: same as pre-op Procedures performed: 1. Cystoscopy. 2. Right rigid ureteral dilation. 3. Right ureteroscopy. 4. Thulium laser lithotripsy of right ureteral calculus #5. Stone fragment extraction via basket. Anesthesia: General-LMA Primary Surgeon: Renato Santacruz Complications: None Estimated blood loss (mL): 2 Findings: Obstructing right distal ureteral calculus Specimens: Right ureteral calculus fragments Drains: None Indications for Procedures: This lady has a 5 mm right distal ureteral calculus causing pain. She has been unable to pass it and she is highly desirous for ureteroscopic stone manipulation and possible right stent placement. She has signed an informed consent after all risks were explained. Detailed description of Procedure: The patient was brought to the operating room and placed on the operating room table in the supine position. SCDs were placed on the lower extremities and turned on and functioning during the entire case. Timeout was done by all parties in the room. We all agreed upon the patient's identification and the planned procedures for this patient. Genn. anesthesia was then administered. The patient was then repositioned into the modified dorsal lithotomy position. All pressure points were satisfactorily padded. Genitalia were sterilely prepped and draped in usual fashion. I started by passing a 22 Prydeinig Olympus cystoscope per urethra and into the bladder. Panendoscopy in the bladder showed no evidence of any stones, tumors or mucosal lesions. I then passed a Glidewire through the scope and cannulated the right ureter and passed the wire up to the kidney. There was an E flux of cloudy urine immediately. I then used an 8 Prydeinig rigid dilator to dilate the distal ureter. The cystoscope was removed. I then passed a semirigid ureteroscope adjacent to the wire through the urethra into the bladder and into the right ureter. I was able to get right to the stone. I then used a 270 ? laser fiber and passed it through the scope and made contact with the stone. I began doing laser lithotripsy at 6 W continuously. The stone fragmented into several pieces. A 0 tip nitinol basket was used to grasp pieces and dumped them in the base of the bladder. I went up and down the ureter numerous times removing pieces until the right ureter was totally free of stone. I did scope up to L5 and back and there were no other stones. The ureteroscope was removed. I elected not to place a stent. The cystoscope was passed back into the bladder. The Ilich was used to get all the pieces out and these were sent for stone analysis. The bladder was drained of its contents and the scope was removed. She was then transferred to a [facility] bed and wheeled to PACU in stable condition.
[2023-08-14] MEDS: HYDROMORPHONE HCL 0.5 MG/0.5 ML SYRINGE IV ×2 (10:30→10:41)
[2023-08-14] MEDS: ONDANSETRON PF 4 MG/2 ML VIAL IV (10:41)
[2023-08-14] MEDS: TAMSULOSIN HCL 0.4 MG CAPSULE PO (11:16)
[2023-08-14] MEDS: PHENAZOPYRIDINE 100 MG TABLET 200 MG PO (11:16)
--- NOTE | 2023-08-14 11:46 | PC.NURSE ---
AT 1041 ZOFRAN AND DILAUDID WAS GIVEN TO PATIENT FOR 7 OUT OF 10 PAIN AND NAUSEA. AFTER PATIENT WAS HAVING NO RELIEF, THIS MASTER OCEAN UPDATED DR BROWN FROM ANESTHESIA AND HE ADVISED TO NOTIFY DR EATON. DR EATON WAS STILL IN BUILDING AND CAME OVER TO RE-ASESS THE PATIENT AT ABOUT 1115. DR. BARRIOS ORDERED ORAL MEDS HE FELT SHOULD HELP WITH THE DISCOMFORT. AT TRANSFER TO PHASE II PATIENT STATES HER PAIN IS DOWN TO A 5
[2023-08-23 13:08] LABS: Calcium Oxalate Dihydrate 90 % (.); Calcium Oxalate Monohydrate 10 % (.); Size 3x2 mm (.)
== END 2023-08-14 12:32 | disposition home or self-care (01) ==
PROVIDERS: Anesthesiology; PCP Family Medicine; Visit Provider Urology
PROC: (CPT 52353; principal; 2023-08-14 09:00)
DX: N13.2 Hydronephrosis with renal and ureteral calculous obstruction (principal); I48.91 Unspecified atrial fibrillation; R35.0 Frequency of micturition; Z79.01 Long term (current) use of anticoagulants; F41.9 Anxiety disorder, unspecified; F32.A Depression, unspecified; E11.9 Type 2 diabetes mellitus without complications; Z87.891 Personal history of nicotine dependence; Z85.42 Personal history of malignant neoplasm of other parts of uterus; R35.1 Nocturia; Z87.442 Personal history of urinary calculi; Z90.710 Acquired absence of both cervix and uterus; Z90.2 Acquired absence of lung [part of]; Z79.84 Long term (current) use of oral hypoglycemic drugs; Z79.82 Long term (current) use of aspirin
CPT/HCPCS: 52353; 36415; 76000; 82365; 82948; 85610; 99999; J0690; J1100; J1170; J2371; J2405; J2704; J3010

== ENCOUNTER 2023-08-20 09:06 | Outpatient (OUT) | payer MEDICARE, SELFPAY ==
--- OUTSIDE RECORDS SUMMARY | 2023-08-18 09:15 | XMS_ITS | CCD ---
Author Name Unknown Address [address] [place] [address] Organization [facility] Care Team Providers Care Medical Records Library Professor Name Role Phone Astrid Bakre Unavailable CAYETANO, DR CRUM Consulting Unavailable MONTEIRO, [...] able MD Jayme Perez Primary Care Provider MD Williams Shepherd Attending Provider [phone] Williams Shepherd Admitting Unavailable Williams Shepherd Attending Unavailable Jayme Perez Primary Care Unavailable Williams Shepherd Attending Unavailable Hemeyer, Jayme Hazel Primary Care Unavailable Williams Shepherd Admitting Unavailable Lou Glover Unavailable FELICIA THORNTON Attending Unavailable HEMEYER, JAYME Hazel Attending Unavailable HEMEYER, JAYME Hazel Attending Unavailable FELICIA THORNTON Attending Unavailable FELICIA THORNTON Attending Unavailable FELICIA THORNTON Attending Unavailable COOKWilliams Attending Unavailable COOK, Williams Venegas Attending Unavailable Renato SANTACRUZ Attending Unavailable COOK, Williams Venegas Attending Unavailable COOKWilliams P Admitting Unavailable COOKWilliams Attending Unavailable Renato SANTACRUZ Attending Unavailable COOKWilliams P Attending Unavailable COOKVargasWilliams P Attending Unavailable Allergies Allergy Classification Reported Allergen(s) Allergy Type Date of Onset Reaction(s) Facility (7 sources) Ciprofloxacin; 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: [ciprofloxacin] Drug Allergy 03-26-20 23 anaphylaxis, Unknown (qualifier value) [facility] (1 source) sulfaSALAzine Drug Allergy rash [place] [employer] Other (1 source) Ciprofloxacin Drug Allergy 03-30-20 13 [facility] Repository (2 sources) Ketorolac; 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: [Toradol] Drug Allergy 03-30-20 13 [facility] Repository (2 sources) metroNIDAZOLE; 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: [MetroGel] Drug Allergy 03-30-20 13 [facility] Repository (1 source) NSAIDs Drug allergy (disorder) 03-30-20 13 [facility] (2 sources) pioglitazone; 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: [Actos] Drug Allergy 03-30-20 13 [facility] Repository (1 source) Sulfonamides (Antibiotic) Drug allergy (disorder) 03-30-20 13 [facility] Repository (8 sources) Ketorolac; 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: [ketorolac] Drug Allergy 03-26-20 Unknown (qualifier value), Nausea (finding) [facility] Comment on above: Severe (6 sources) Latex; 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: [latex] Drug allergy 03-26-20 Blister of skin AND/OR mucosa (finding) [facility] (4 sources) Non-steroidal anti-inflammatory agent; 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: [NSAIDs] Drug allergy Unknown (qualifier value) [facility] (6 sources) pioglitazone; 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: [pioglitazone] Drug Allergy 03-26-20 Unknown (qualifier value) [facility] (4 sources) Sulfonamides (Antibiotic); 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: [sulfa drugs] Drug allergy Unknown (qualifier value) [facility] (3 sources) metroNIDAZOLE; 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: [metronidazole] Drug Allergy 03-26-20 Redness of Skin [facility] (2 sources) Sulfonamides (Antibiotic); 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: [Sulfa (Sulfonamide Antibiotics)] Allergy to substance 03-26-20 Rash [facility] (2 sources) NSAIDS (Non-Steroidal Anti-Inflamma; 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: [NSAIDS (Non-Steroidal Anti-Inflamma] Allergy to substance 03-26-20 Anaphylaxis [facility] (1 source) Ciprofloxacin Drug Allergy 03-26-20 [facility] Repository (1 source) Ketorolac Drug Allergy 03-26-20 [facility] Repository (1 source) pioglitazone Drug Allergy 03-26-20 [facility] Repository (1 source) Non-steroidal anti-inflammatory agent Drug allergy rash [facility] Other (1 source) Substance with sulfonamide structure and antibacterial mechanism of action (substance) Drug allergy rash [facility] Other Medications Current Medications Medication Drug Class(es) [...] Refill(s) 0 Start Date: 08/13/23 Status: Ordered [id number] 200 actuat albuterol 0.09 mg/actuat metered dose [...] Date: 09/19/20 Status: Ordered Cyanocobalamin-Liver Extract (Vitamin X12-Kkwmk) Tablet (1 source) Start: 03-26-2023 take 1 tablet by mouth once daily Cyanocobalamin-Liver Extract (Vitamin L57-Dlsuc) Tablet Active 1 TAB PO every day at noon March 25, 2023 11:00pm dextromethorphan hydrobromide 1.5 mg/ml / pyrilamine maleate 1.5 mg/ml oral solution (1 source) Uncompetitive P-pgqoru-S-aspar muñoz Receptor Antagonist, Sigma-1 Agonist Start: 07-25-2023 take 10 mL by mouth every eight hours Fedscreek DM 7.5-7.5 MG/5ML 10 mL Orally every [...] Start Date: 09/19/20 Status: Ordered Start: 09-19-2020 [facility] [place] ironchlate Start Date: 09/19/20 Status: [...] disorder 08-17-2019 Chronic Other aftercare (1 source) [facility] (current) use of anticoagulants; 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: [FCI CURRNT USE ANTICOAGULANTS] Onset: 12-11-2022 Episodic Other aftercare (5 sources) Encounter for therapeutic drug level monitoring; 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: [ENC THERAPEUTC DRUG LEVL MONITORING] Onset: 10-18-2022 Episodic Other aftercare (1 source) 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; 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: [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] Onset: 10-31-2022 Episodic Other aftercare (1 source) Long-term current use of anticoagulant; 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] Onset: 08-13-2023 Episodic [...] Resolved: 05-21-2021 Episodic Other aftercare (1 source) [facility] (current) use of oral hypoglycemic drugs; 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: [FCI USE ORAL HYPOGLYCEMIC DX] Onset: 08-12-2022 Episodic Other aftercare (1 source) [facility] (current) use of insulin; 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: [FCI CURRENT USE OF INSULIN] Onset: 02-13-2022 Episodic [...] Name Value Interpretation Reference Range Facil ity Consent for Procedure/Surger yon 08-15-2023 Consent for Procedure/Surgery [id number] .00TIFF Normal [facility] ED Note-Physicianon 08-15-19 ED Note-Physician [id number]#1. 00TIFF Normal [facility] Lab Reportson 08-15-2023 Lab Reports [id number]#1. 00TIFF [facility] Lab Reports [id number] .00TIFF Normal [facility] Lab Reports [id number] .00TIFF [facility] Operative Reporton Operative Report [id number]#1 .00TIFF [facility] RAD - CT Reporton 08-15-2023 RAD - CT Report [id number]#1. 00TIFF [facility] Ambulatory Visit Summaryon 0 08-13-2023 Ambulatory Visit [...] AGUIAR, Williams Venegas Where: [facility] Normal [address] [place] [address]- \.br\ You Need to Schedule the Following Appointments\.br \ Follow Up with ANGELITO AGUIAR, Renato Arzola, URL When: \.br\ Comments:\.br\ sched ureteroscopy\.br \ f/u w/ [facility] scheduled 10/14/23\.br\ Where:\.br\ [facility] [address]br\ [place] [address]-\.br\ [id number]\.br\ Medications\.br\ What How Much When Instructions\.br \ [...] murmur\.br\ History of uterine cancer\.br\ Hx of residential use of blood thinners\.br\ Kidney stones\.br\ Nocturia\.br\ [...] including vitamins, herbs, eye drops, creams, and pbri-enx-wtecuyo medicines.\.br\ ? \.br\ Any problems you or [...] you to take them.\.br\ ? \.br\ Taking oyxo-ggt-unthwtj medicines, vitamins, herbs, and supplements.\.br \ Eating [...] You may also have tests, such [facility] Patient Educationon 08-13-19 Patient Education Nephrology Laser [...] including vitamins, herbs, eye drops, creams, and kjoh-ytm-zfkolvl medicines. ? Any problems you or family [...] tells you to take them. ? Taking bxxt-nvi-moxywqq medicines, vitamins, herbs, and supplements. Eating and [...] the pieces (more content not included)... Normal [facility] Urology Office/Clinic Noteon 08-13-2023 Urology Office/Clinic Note Chief Complaint Patient is here for follow up to [facility] ER HPI Staff Patient is here for f/u to [facility] ER on 08/12/23 due to distal [...] Hydronephrosis with renal and ureteral calculous obstruction) TB ER visit 08/12/23 due to R flank [...] Dr. Shepherd. S/P ESWL 08/26/[address] Shepherd. S/p Cysto/R RGP/R ESWL/R stent placement 06/29/23. Last stone episode 03/2023. Stone analysis 03/20/23 - 100% Di Ca Ox CT AP wo con 08/12/23 TBH - Bilateral nonobstructing subcentimeter renal calculi measuring up to 5mm in RSP. -See #1 3. Flank pain (R10.9: Unspecified abdominal pain) See #1 4. Anticoagulated (Z79.01: [facility] (current) use of anticoagulants) On warfarin 3mg for a-fib. States she did not take this last night. Advised pt not to take her dose today either. Follow-up With When Contact Information Renato SANTACRUZ MD, URL [facility] [address], [place] [phone] Additional Instructions: sched ureteroscopy f/u w/ [facility] scheduled 10/14/23 Patient Education Laser Therapy for Kidney Stones I, Amy Gallagher, personally scribed for Dr. Santacruz on 08/13/2023 11:35:03. . Documentation recorded by the sonyibAmy albarran, accurately reflects the services(s) I performed and decisions made by me. Authenticated by Dr. Santacruz on 08/13/2023 11:37:02. Problem List/Past Medical History [place] (more content not included)... Normal [facility] Comment on above: Result Comment: Elec tronically Signed By: Renato SANTACRUZ MD\.br\Date and Time Signed: 08/13/23 11:37 EST\.br\Electronically Co-Signed By: Amy Gallagher\.br\Date and Time Co-Signed: 08/13/23 11:35 EST COVID/FLU/RSV RT-PCRon 07-25 SARS-CoV-2 (COVID-19) RNA TREASURE+probe Ql (Unsp spec) Negative [place] [employer] Other COVID/FLU/RSV RT-PCR Negative [facility] [employer] [facility] Other COVID/FLU/RSV RT-PCR Positive [place] [employer] Other Calculus Analysison 03-27-20 23 Calcium oxalate dihydrate Infrared spectroscopy (Stone) [Mass fraction] 100 % Invalid Interpretation Code [facility] Comment on above: Performed By: #### 1 [id number] ####[address] [place] [address] Color (Stone) [place]oper Invalid Interpretation Code [facility] Comment on above: Performed By: #### 1 [id number] ####[address] [place] [address] Composition Comment Invalid Interpretation Code [facility] Comment on above: Result Comment: Perc entage (Represents the % composition) Performed By: #### 1 [id number] ####[address] [place] [address] Disclaimer: Comment Invalid Interpretation Code [facility] Comment on above: Result Comment: This test was developed and its performance characteristics determined by [facility]. It has not been cleared or approved by the Food and Drug Administration. Performed at: [address] [id number] PhD Silvestre Esquivel Performed By: #### 1 [id number] ####[address] [place] [address] Laboratory comment Noam (Report) Comment Invalid Interpretation Code [facility] Comment on above: Result Comment: Coco goode questions regarding Calculi Analysis contact [facility] at: [phone]. Performed By: #### 1 [id number] ####[address] [place] [address] Please Note: Comment Invalid Interpretation Code [facility] Comment on above: Result Comment: Calc javier report will follow via computer, mail or biomedical specialist delivery. Performed By: #### 1 [id number] ####[address] [place] [address] Size (Stone) [Entitic vol] 6x4 Invalid Interpretation Code [facility] Comment on above: Result Comment: Sing carmen fairchild received. Performed By: #### 1 [id number] ####[address] [place] [address] Specimen source subject Nom Comment Invalid Interpretation Code [facility] Comment on above: Result Comment: Not provided Performed By: #### 1 [id number] ####[facility] [address] [place] [address] Stone Photo Comment Invalid Interpretation Code [facility] Comment on above: Result Comment: Phot ograph will follow under a separate cover Performed By: #### 1 [id number] ####[facility] [address] [place] [address] Weight (Stone) 49 mg Invalid Interpretation Code [facility] Comment on above: Performed By: #### 1 [id number] ####[facility] [address] [place] [address] Lab Reportson 03-27-2023 Lab Reports [id number]. 00CD:127 Normal [facility] Activated partial thrombopla stin time (aPTT) in platelet poor plasma by coagulation aOrdered By: Williasm Shepherd on 03-26-2023 aPTT Coag (PPP) [Time] 35.9 s 25.1-36.5 [facility] Comment on above: A hematocrit value g reater than 55% may lead to inaccurate results in coagulation testing. Patients having hematocrit values >55% require a special collection tube for coagulation studies. Please contact the laboratory at [phone] for redraw instructions. Basic Metabolic Panelon 03-14 Anion gap [Moles/Vol] 13.0 mmol/L Normal 6.0-15.0 [facility] Comment on above: Performed By: #### P T, BMP, CBC, PTT #### [address] [address] [facility] Calcium [Mass/Vol] 10.0 mg/dL Normal 8.6-10.3 [facility] Comment on above: Result Comment: PERF ORMED BY: [facility] [address] [place] [address] PATHOLOGIST CAT SWAMPER BERNIE GRAYSON M.D. Performed By: #### P T, BMP, CBC, PTT #### [facility] [address] [place] [address] [place] Chloride [Moles/Vol] 104 mmol/L Normal 98-107 [facility] Comment on above: Performed By: #### P T, BMP, CBC, PTT #### [facility] [address] [place] [address] [place] CO2 [Moles/Vol] 30.0 mmol/L Normal 21.0-31.0 [facility] Comment on above: Performed By: #### P T, BMP, CBC, PTT #### [facility] [address] Creatinine [Mass/Vol] 0.85 mg/dL Normal 0.60-1.20 [facility] Comment on above: Performed By: #### P T, BMP, CBC, PTT #### [facility] [address] [place] [address] [place] GFR/1.73 sq M.predicted MDRD (S/P/Bld) [Vol rate/Area] mL/min/{1.73_m2} Normal [facility] Comment on above: Performed By: #### P T, BMP, CBC, PTT #### [facility] [address] [place] [address] [place] Glucose [Mass/Vol] 111 mg/dL High 70-100 [facility] Comment on above: Result Comment: [place] Glucose Reference Range is dependent on time and content of last meal. Glucose of more than 200 mg/dL in a nonstressed, ambulatory subject supports the diagnosis of Diabetes Mellitus. ADA recommended reference range Performed By: #### P T, BMP, CBC, PTT #### [facility] [address] [place] [address] [place] Potassium [Moles/Vol] 5.0 mmol/L Normal 3.5-5.1 [facility] Comment on above: Performed By: #### P T, BMP, CBC, PTT #### [facility] [address] [place] [address] [place] Sodium [Moles/Vol] 142 mmol/L Normal 136-145 [facility] Comment on above: Performed By: #### P T, BMP, CBC, PTT #### [facility] [address] Urea nitrogen [Mass/Vol] 12 mg/dL Normal 7-25 [facility] Comment on above: Performed By: #### P T, BMP, CBC, PTT #### [facility] [address] Basophils Auto (Bld) [#/Vol] Ordered By: Williams Shepherd on 03-26-2023 Basophils (Bld) [#/Vol] 0.0 10*3/uL 0.0-0.2 [facility] Basophils/100 WBC Auto (Bld) Ordered By: Williams Shepherd on 03-26-2023 Basophils/100 WBC (Bld) 0.8 % . [facility] Calcium [Mass/volume] in Ser um or PlasmaOrdered By: Williams Shepherd on 03-26-2023 Calcium [Mass/Vol] 10.0 mg/dL 8.6-10.3 [facility] Carbon dioxide, total [Moles /volume] in Serum or PlasmaOrdered By: Williams Shepherd on 03-26-2023 CO2 [Moles/Vol] 30.0 mmol/L 21.0-31.0 [facility] Chloride [Moles/volume] in S fartun or PlasmaOrdered By: Williams Shepherd on 03-26-2023 Chloride [Moles/Vol] 104 mmol/L 98-107 [facility] Complete Blood Count Auto Di ffon 03-26-2023 Basophils (Bld) [#/Vol] 0.0 10*3/uL Normal 0.0-0.2 [facility] Comment on above: Result Comment: PERF ORMED BY: [place] [address] PATHOLOGIST CAT SWAMPER BERNIE GRAYSON M.D. Performed By: #### P T, BMP, CBC, PTT #### [facility] [address] Basophils/100 WBC (Bld) 0.8 % Normal . [facility] Comment on above: Performed By: #### P T, BMP, CBC, PTT #### [address] Eosinophils (Bld) [#/Vol] 0.3 10*3/uL Normal 0.0-0.45 [facility] Comment on above: Performed By: #### P T, BMP, CBC, PTT #### [address] Eosinophils/100 WBC (Bld) 4.3 % Normal . [facility] Comment on above: Performed By: #### P T, BMP, CBC, PTT #### [address] Erythrocyte distribution width (RBC) [Ratio] 14.8 % Normal 11.9-15.3 [facility] Comment on above: Performed By: #### P T, BMP, CBC, PTT #### [address] Hematocrit (Bld) [Volume fraction] 40.3 % Normal 34.0-46.4 [facility] Comment on above: Performed By: #### P T, BMP, CBC, PTT #### [address] Hemoglobin (Bld) [Mass/Vol] 13.3 g/dL Normal 11.8-15.4 [facility] Comment on above: Performed By: #### P T, BMP, CBC, PTT #### [address] Lymphocytes (Bld) [#/Vol] 2.2 10*3/uL Normal 1.00-4.8 [facility] Comment on above: Performed By: #### P T, BMP, CBC, PTT #### [address] Lymphocytes/100 WBC (Bld) 36.9 % Normal . [facility] Comment on above: Performed By: #### P T, BMP, CBC, PTT #### [address] MCH (RBC) [Entitic mass] 31.1 pg Normal 24.7-34.3 [facility] Comment on above: Performed By: #### P T, BMP, CBC, PTT #### [address] MCV (RBC) [Entitic vol] 94.4 fL Normal 80-100 [facility] Comment on above: Performed By: #### P T, BMP, CBC, PTT #### [address] Mean Corpuscular HGB Conc 32.9 g/dL Normal 32.0-35.0 [facility] Comment on above: Performed By: #### P T, BMP, CBC, PTT #### [address] Monocytes (Bld) [#/Vol] 0.5 10*3/uL Normal 0.0-0.8 [facility] Comment on above: Performed By: #### P T, BMP, CBC, PTT #### [address] Monocytes/100 WBC (Bld) 7.8 % Normal . [facility] Comment on above: Performed By: #### P T, BMP, CBC, PTT #### [address] Neutrophils (Bld) [#/Vol] 3.0 10*3/uL Normal 1.8-7.7 [facility] Comment on above: Performed By: #### P T, BMP, CBC, PTT #### [address] Neutrophils/100 WBC (Bld) 50.2 % Normal . [facility] Comment on above: Performed By: #### P T, BMP, CBC, PTT #### [address] NRBC% 0.3 /100{WBC} Normal 0-0.5 [facility] Comment on above: Performed By: #### P T, BMP, CBC, PTT #### [address] Platelet mean volume (Bld) [Entitic vol] 7.1 fL Normal 6.3-10.7 [facility] Comment on above: Performed By: #### P T, BMP, CBC, PTT #### [facility] [address] Platelets (Bld) [#/Vol] 363 10*3/uL Normal 150-450 [facility] Comment on above: Performed By: #### P T, BMP, CBC, PTT #### [facility] [address] RBC (Bld) [#/Vol] 4.27 10*6/uL Normal 3.60-5.00 [facility] Comment on above: Performed By: #### P T, BMP, CBC, PTT #### [address] WBC (Bld) [#/Vol] 5.9 10*3/uL Normal 3.8-11.6 [facility] Comment on above: Performed By: #### P T, BMP, CBC, PTT #### [facility] [address] [place] [address] Creatinine [Mass/volume] in Serum or PlasmaOrdered By: Williams Shepherd on 03-26-2023 Creatinine [Mass/Vol] 0.85 mg/dL 0.60-1.20 [facility] ECG 12 lead ECGon 03-26-2023 ECG 12 lead ECG [facility] [place] [address] [place] [address] Electrocardiograph Report Signed Patient: Wilda Sen MR#: [id number] 8 : 1945 Acct:[id number] Age/Sex: 77 / F ADM Date: 03/26/23 Loc: PS Room: Type: [facility] Attending Dr: Williams Shepherd MD Ordering [...] By Maru Whitehead DO 03/26 1908 Normal [facility] Eosinophils Auto (Bld) [#/Vo l]Ordered By: Williams Shepherd on 03-26-2023 Eosinophils (Bld) [#/Vol] 0.3 10*3/uL 0.0-0.45 [facility] Eosinophils/100 WBC Auto (Bl d)Ordered By: Williams Shepherd on 03-26-2023 Eosinophils/100 WBC (Bld) 4.3 % . [facility] Erythrocyte distribution wid th Auto (RBC) [Ratio]Ordered By: Williams Shepherd on 03-26-2023 Erythrocyte distribution width (RBC) [Ratio] 14.8 % 11.9-15.3 [facility] Glucose [Mass/volume] in Ser um or PlasmaOrdered By: Williams Shepherd on 03-26-2023 Glucose [Mass/Vol] 111 mg/dL 70-100 [facility] Comment on above: ADA recommended refe rence rangeRandom Glucose Reference Range is dependent on time and content of last meal. Glucose of more than 200 mg/dL in a nonstressed, ambulatory subject supports the diagnosis of Diabetes Mellitus. Hematocrit Auto (Bld) [Volum e fraction]Ordered By: Williams Shepherd on 03-26-2023 Hematocrit (Bld) [Volume fraction] 40.3 % 34.0-46.4 [facility] Hemoglobin [Mass/volume] in BloodOrdered By: Williams Shepherd on 03-26-2023 Hemoglobin (Bld) [Mass/Vol] 13.3 g/dL 11.8-15.4 [facility] INR in Platelet poor plasma by Coagulation assayOrdered By: Williams Shepherd on 03-26-2023 INR Coag (PPP) [Relative time] 2.3 {INR} [facility] Comment on above: INR Therapeutic Rang [...] RBC Auto (Bld) [#/Vol] 5.9 10*3/uL 3.8-11.6 [facility] Lymphocytes Auto (Bld) [#/Vo l]Ordered By: Williams Shepherd on 03-26-2023 Lymphocytes (Bld) [#/Vol] 2.2 10*3/uL 1.00-4.8 [facility] Lymphocytes/100 WBC Auto (Bl d)Ordered By: Williams Shepherd on 03-26-2023 Lymphocytes/100 WBC (Bld) 36.9 % . [facility] MCH Auto (RBC) [Entitic mass ]Ordered By: Williams Shepherd on 03-26-2023 MCH (RBC) [Entitic mass] 31.1 pg 24.7-34.3 [facility] MCHC Auto (RBC) [Mass/Vol]Or dered By: Williams Shepherd on 03-26-2023 MCHC (RBC) [Mass/Vol] 32.9 g/dL 32.0-35.0 [facility] MCV Auto (RBC) [Entitic vol] Ordered By: Williams Shepherd on 03-26-2023 MCV (RBC) [Entitic vol] 94.4 fL 80-100 [facility] Monocytes Auto (Bld) [#/Vol] Ordered By: Williams Shepherd on 03-26-2023 Monocytes (Bld) [#/Vol] 0.5 10*3/uL 0.0-0.8 [facility] Monocytes/100 WBC Auto (Bld) Ordered By: Williams Shepherd on 03-26-2023 Monocytes/100 WBC (Bld) 7.8 % . [facility] Neutrophils Auto (Bld) [#/Vo l]Ordered By: Williams Shepherd on 03-26-2023 Neutrophils (Bld) [#/Vol] 3.0 10*3/uL 1.8-7.7 [facility] Neutrophils/100 WBC Auto (Bl d)Ordered By: Williams Shepherd on 03-26-2023 Neutrophils/100 WBC (Bld) 50.2 % . [facility] No Panel InformationOrdered By: Williams Shepherd on 03-26-2023 Estimated GFR (CKD-EPI) > 60.0 mL/Min [facility] Creatinine Clearance (Chem N/A [facility] Nucleated erythrocytes [Pres ence] in Blood by Automated countOrdered By: Williams Shepherd on 03-26-2023 Nucleated RBC Auto Ql (Bld) 0.3 /100{WBC} 0-0.5 [facility] Partial Thromboplastin Timeo n 03-26-2023 aPTT Coag (Bld) [Time] 35.9 s Normal 25.1-36.5 [facility] Comment on above: Result Comment: A he matocrit value greater than 55% may lead to inaccurate results in coagulation testing. Patients having hematocrit values >55% require a special collection tube for coagulation studies. Please contact the laboratory at [phone] for redraw instructions. PERFORMED BY: [place] [address] PATHOLOGIST CAT SWAMPER BERNIE GRAYSON M.D. Performed By: #### P T, BMP, CBC, PTT #### [address] Platelet mean volume Auto (B ld) [Entitic vol]Ordered By: Williams Shepherd on 03-26-2023 Platelet mean volume (Bld) [Entitic vol] 7.1 fL 6.3-10.7 [facility] Platelets Auto (Bld) [#/Vol] Ordered By: Williams Shepherd on 03-26-2023 Platelets (Bld) [#/Vol] 363 10*3/uL 150-450 [facility] Potassium [Moles/volume] in Serum or PlasmaOrdered By: Williams Shepherd on 03-26-2023 Potassium [Moles/Vol] 5.0 mmol/L 3.5-5.1 [facility] Prothrombin Time INRon 03-26 INR Coag (PPP) [Relative time] 2.3 {INR} Normal [facility] Comment on above: Result Comment: INR [...] #### P T, BMP, CBC, PTT #### [facility] [address] [id number] [facility] PT Coag (PPP) [Time] 26.6 s High 9.0-12.9 [facility] Comment on above: Result Comment: A he matocrit value greater than 55% may lead to inaccurate results in coagulation testing. Patients having hematocrit values >55% require a special collection tube for coagulation studies. Please contact the laboratory at [phone] for redraw instructions. Performed By: #### P T, BMP, CBC, PTT #### [facility] [address] [id number] [facility] Prothrombin time (PT)Ordered By: Williams Shepherd on 03-26-2023 PT Coag (PPP) [Time] 26.6 s 9.0-12.9 [facility] Comment on above: A hematocrit value g reater than 55% may lead to inaccurate results in coagulation testing. Patients having hematocrit values >55% require a special collection tube for coagulation studies. Please contact the laboratory at [phone] for redraw instructions. RBC Auto (Bld) [#/Vol]Ordere d By: Williams Shepherd on 03-26-2023 RBC (Bld) [#/Vol] 4.27 10*6/uL 3.60-5.00 [facility] Serum or plasma anion gap de terminationOrdered By: Williams Shepherd on 03-26-2023 Anion gap [Moles/Vol] 13.0 mmol/L 6.0-15.0 [facility] Sodium [Moles/volume] in Ser um or PlasmaOrdered By: Williams Shepherd on 03-26-2023 Sodium [Moles/Vol] 142 mmol/L 136-145 [facility] Urea nitrogen [Mass/volume] in Serum or PlasmaOrdered By: Williams Shepherd on 03-26-2023 Urea nitrogen [Mass/Vol] 12 mg/dL 7-25 [facility] WBC Auto (Bld) [#/Vol]Ordere d By: Williams Shepherd on 03-26-2023 WBC (Bld) [#/Vol] 5.9 10*3/uL 3.8-11.6 [facility] Consultation Noteon 03-17-20 Consultation Note [id number] .00CD:127 [facility] Lab Reportson 02-12-2023 Lab Reports [id number] .00CD:127 Normal [facility] RAD - MISCon 02-12-2023 RAD - MISC [id number] .00CD:127 [facility] RAD - CT Reporton 02-05-2023 RAD - CT Report [id number] .00CD:127 [facility] RAD - MISCon 02-05-2023 RAD - MISC [id number] .00CD:127 Normal [facility] Ambulatory Visit Summaryon 0 02-03-2023 Ambulatory Visit [...] Williams SHEPHERD MD Where: [facility] Patient Educationon 02-04-20 23 Patient Education [...] these instructions at home: Medicines ? Take qbcs-jok-zunpsol and prescription medicines only as told by [...] month follow up w/ CT scan done @[facility] on 01/15/23. CT scan shows partially obstructing [...] Information CORA AGUIAR, Williams P, URL [address] [place], [place] [id number]- Additional Instructions: Patient Education Kidney Stones I, Fanny Bowen, personally scribed for Dr. Shepherd on 02/03/2023 12:04:03. . Documentation recorded by the scribe, Fanny Bowen, accurately reflects the services(s) I performed and decisions made by me. Authenticated by Dr. Shepherd on 02/03/2023 12:37:35. Portions of this record may have been created with voice recognition artificial intelligence software, specifically [employer], [employer] and or [employer]. Substitutions may have occurred due to the inherent limitations of voice recognition and artificial intelligence software. 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 Normal [facility] Comment on above: Result Comment: Elec tronically Signed By: Williams SHEPHERD MD\.br\Date and Time Signed: 02/03/23 12:39 EDT\.br\Electronically Co-Signed By: Fanny Bowen\.br\Date and Time Co-Signed: 02/03/23 12:04 EDT PROTIMEon 12-02-2022 INR Coag (PPP) [Relative time] 3.62 {INR} Normal [facility] Comment on above: Performed By: #### P T #### [facility] [address] [place] [address] Dr. Tg Fierro INR GUIDELINES SEE BELOW Normal [facility] Comment on above: Result Comment: LAURENCE RED INR: 2.0 - 3.0 CONDITIONS NOT LISTED BELOW 2.5 - 3.5 FOR PROSTHETIC HEART VALVE REPLACEMENT 2.5 - 3.5 RECURRENT THROMBOSIS Performed By: #### P T #### [facility] [address] [address] [address] Tg Fierro PT Coag (PPP) [Time] 35.7 s Critically high 9.0-11.6 [facility] Comment on above: Performed By: #### P T #### [facility] [address] [address] [address] Tg Fierro PROTIMEon 11-11-2022 INR Coag (PPP) [Relative time] 1.90 {INR} Normal [facility] Comment on above: Performed By: #### P T #### [facility] [address] [address] [address] Tg Fierro INR GUIDELINES SEE BELOW Normal [facility] Comment on above: Result Comment: LAURENCE RED INR: 2.0 - 3.0 CONDITIONS NOT LISTED BELOW 2.5 - 3.5 FOR PROSTHETIC HEART VALVE REPLACEMENT 2.5 - 3.5 RECURRENT THROMBOSIS Performed By: #### P T #### [facility] [address] [place] [address] Dr. Tg Fierro PT Coag (PPP) [Time] 19.4 s Critically high 9.0-11.6 [facility] Comment on above: Performed By: #### P T #### [facility] [address] [place] [address] Dr. Tg Fierro CBC AUTO DIFFon 10-25-2022 BASO # 0.0 103/ul Normal 0.0-0.1 [facility] Comment on above: Performed By: #### P T #### [facility] [address] [place] [address] Dr. Tg Fierro Basophils/100 WBC (Bld) 0.5 % Normal 0.2-2.0 [facility] Comment on above: Performed By: #### P T #### [facility] [address] [place] [address] Dr. Tg Fierro EO # 0.2 103/ul Normal 0.0-0.7 [facility] Comment on above: Performed By: #### P T #### [facility] [address] [place] [address] Dr. Tg Fierro Eosinophils/100 WBC (Bld) 2.7 % Normal 0.9-7.0 [facility] Comment on above: Performed By: #### P T #### [facility] [address] [place] [address] Dr. Tg Fierro Erythrocyte distribution width (RBC) [Ratio] 13.4 % Normal 11.0-15.0 [facility] Comment on above: Performed By: #### P T #### [facility] [address] [place] [address] Dr. Tg Fierro Hematocrit (Bld) [Volume fraction] 40.7 % Normal 36.0-48.0 [facility] Comment on above: Performed By: #### P T #### [facility] [address] [place] [address] Dr. Tg Fierro Hemoglobin (Bld) [Mass/Vol] 13.2 g/dL Normal 12.0-16.0 [facility] Comment on above: Performed By: #### P T #### [facility] [address] [place] [address] Dr. Tg Fierro IG # 0.03 10e3/ul Normal 0.00-0.03 [facility] Comment on above: Performed By: #### P T #### [facility] [address] [place] [address] Dr. Tg Fierro IG % 0.5 % Normal 0.0-0.5 [facility] Comment on above: Performed By: #### P T #### [facility] [address] [place] [address] Dr. Tg Fierro LYMPH # 2.1 103/ul Normal 1.2-3.8 [facility] Comment on above: Performed By: #### P T #### [facility] [address] [place] [address] Dr. Tg Fierro Lymphocytes/100 WBC (Bld) 34.9 % Normal 20.5-60.0 [facility] Comment on above: Performed By: #### P T #### [facility] [address] [place] [address] Dr. Tg Fierro MANUAL DIFF REQ NO Normal [facility] Comment on above: Performed By: #### P T #### [facility] [address] [place] [address] Dr. Tg Fierro MCH (RBC) [Entitic mass] 30.5 pg Normal 26.7-34.0 [facility] Comment on above: Performed By: #### P T #### [facility] [address] [place] [address] Dr. Tg Fierro MCHC (RBC) [Mass/Vol] 32.4 g/dL Normal 29.9-35.2 [facility] Comment on above: Performed By: #### P T #### [facility] [address] [place] [address] Dr. Tg Fierro MCV (RBC) [Entitic vol] 94.0 fL Normal 81.0-99.0 [facility] Comment on above: Performed By: #### P T #### [facility] [address] [place] [address] Dr. Tg Fierro MONO # 0.4 103/ul Normal 0.3-0.8 [facility] Comment on above: Performed By: #### P T #### [facility] [address] [place] [address] Dr. Tg Fierro Monocytes/100 WBC (Bld) 7.1 % Normal 1.7-12.0 [facility] Comment on above: Performed By: #### P T #### [facility] [address] [place] [address] Dr. Tg Fierro NEUT # 3.2 103/ul Normal 1.4-6.5 [facility] Comment on above: Performed By: #### P T #### [facility] [address] [place] [address] Dr. Tg Fierro Neutrophils/100 WBC (Bld) 54.3 % Normal 43.0-75.0 [facility] Comment on above: Performed By: #### P T #### [facility] [address] [place] [address] Dr. Tg Fierro Platelet mean volume (Bld) [Entitic vol] 8.7 fL Critically low 9.5-13.5 [facility] Comment on above: Performed By: #### P T #### [facility] [address] [place] [address] Dr. Tg Fierro PLT 295 103/ul Normal 150-450 [facility] Comment on above: Performed By: #### P T #### [facility] [address] [place] [address] Dr. Tg Fierro RBC 4.33 106/ul Normal 4.20-5.40 [facility] Comment on above: Performed By: #### P T #### [facility] [address] [place] [address] Dr. Tg Fierro WBC 5.9 103/ul Normal 4.0-11.0 [facility] Comment on above: Performed By: #### P T #### [facility] [address] [place] [address] Dr. Tg Fierro PROF 14(COMP METB)on 04-14-2 023 Albumin [Mass/Vol] 3.8 g/dL Normal 3.4-5.0 [facility] Comment on above: Performed By: #### C MP #### [facility] [address] [place] [address] Dr. Tg Fierro Albumin/Globulin [Mass ratio] 1.2 {ratio} Normal [facility] Comment on above: Performed By: #### C MP #### [facility] [address] [address] [address] Tg Fierro ALP [Catalytic activity/Vol] 49 U/L Normal 46-116 [facility] Comment on above: Performed By: #### C MP #### [facility] [address] [place] [address] Dr. Tg Fierro ALT [Catalytic activity/Vol] 21 U/L Normal 14-59 [facility] Comment on above: Performed By: #### C MP #### [facility] [address] [place] [address] Dr. Tg Fierro Anion gap [Moles/Vol] 13.3 mmol/L Normal [facility] Comment on above: Performed By: #### C MP #### [facility] [address] [place] [address] Dr. Tg Fierro AST [Catalytic activity/Vol] 14 U/L Critically low 15-37 [facility] Comment on above: Performed By: #### C MP #### [facility] [address] [place] [address] Dr. Tg Fierro Bilirubin [Mass/Vol] 0.5 mg/dL Normal 0.2-1.0 [facility] Comment on above: Performed By: #### C MP #### [facility] [address] [place] [address] Dr. Tg Fierro Calcium [Mass/Vol] 9.5 mg/dL Normal 8.5-10.[address] [facility] Comment on above: Performed By: #### C MP #### [facility] [address] [place] [address] Dr. Tg Fierro Chloride [Moles/Vol] 104 mmol/L Normal 98-107 [facility] Comment on above: Performed By: #### C MP #### [facility] [address] [address] [address] Tg Fierro CO2 [Moles/Vol] 29.3 mmol/L Normal 21.0-32.0 [facility] Comment on above: Performed By: #### C MP #### [facility] [address] [address] [address] Tg Fierro Creatinine [Mass/Vol] 0.93 mg/dL Normal 0.55-1.02 [facility] Comment on above: Performed By: #### C MP #### [facility] [address] [address] [address] Tg Fierro EGFR-AF AUSTRIAN >60 Normal >=60 [facility] Comment on above: Performed By: #### C MP #### [facility] [address] [address] [address] Tg Fierro EGFR-NON AF AUSTRIAN 59 mL/min/1.73m2 Critically low >=60 [facility] Comment on above: Performed By: #### C MP #### [facility] [address] [address] [address] Tg Fierro Globulin (S) [Mass/Vol] 3.2 g/dL Normal [facility] Comment on above: Performed By: #### C MP #### [facility] [address] [address] [address] Tg Fierro Glucose [Mass/Vol] 186 mg/dL Critically high 74-106 [facility] Comment on above: Performed By: #### C MP #### [facility] [address] [address] [address] Tg Fierro Potassium [Moles/Vol] 4.6 mmol/L Normal 3.5-5.1 [facility] Comment on above: Performed By: #### C MP #### [facility] [address] [address] [address] Tg Fierro Protein [Mass/Vol] 7.0 g/dL Normal 6.4-8.2 [facility] Comment on above: Performed By: #### C MP #### [facility] [address] [address] [address] Tg Fierro Sodium [Moles/Vol] 142 mmol/L Normal 136-145 [facility] Comment on above: Performed By: #### C MP #### [facility] [address] [address] [address] Tg Fierro Urea nitrogen [Mass/Vol] 15.0 mg/dL Normal 7.0-18.0 [facility] Comment on above: Performed By: #### C MP #### [facility] [address] [address] [address] Tg Fierro Urea nitrogen/Creatinine [Mass ratio] 16.1 mg/mg Normal [facility] Comment on above: Performed By: #### C MP #### [facility] [address] [place] [address] Dr. Tg Fierro SED RATE WESTERGRENon 2022 SED RATE 9 mm/hr Normal <=30 [facility] Comment on above: Performed By: #### C MP #### [facility] [address] [place] [address] Dr. Tg Fierro PROTIMEon 10-14-2022 INR Coag (PPP) [Relative time] 1.94 {INR} Normal [facility] Comment on above: Performed By: #### P T #### [facility] [address] [place] [address] Dr. Tg Fierro INR GUIDELINES SEE BELOW Normal [facility] Comment on above: Result Comment: LAURENCE RED INR: 2.0 - 3.0 CONDITIONS NOT LISTED BELOW 2.5 - 3.5 FOR PROSTHETIC HEART VALVE REPLACEMENT 2.5 - 3.5 RECURRENT THROMBOSIS Performed By: #### P T #### [facility] [address] [place] [address] Dr. Tg Fierro PT Coag (PPP) [Time] 19.8 s Critically high 9.0-11.6 [facility] Comment on above: Performed By: #### P T #### [facility] [address] [place] [address] Dr. Tg Fierro CBC AUTO DIFFon 09-24-2022 BASO # 0.1 103/ul Normal 0.0-0.1 [facility] Comment on above: Performed By: #### P T #### [facility] [address] [place] [address] Dr. Tg Fierro Basophils/100 WBC (Bld) 0.7 % Normal 0.2-2.0 [facility] Comment on above: Performed By: #### P T #### [facility] [address] [address] [address] Tg Fierro EO # 0.3 103/ul Normal 0.0-0.7 [facility] Comment on above: Performed By: #### P T #### [facility] [address] [place] [address] Dr. Tg Fierro Eosinophils/100 WBC (Bld) 3.6 % Normal 0.9-7.0 [facility] Comment on above: Performed By: #### P T #### [facility] [address] [place] [address] Dr. Tg Fierro Erythrocyte distribution width (RBC) [Ratio] 13.4 % Normal 11.0-15.0 [facility] Comment on above: Performed By: #### P T #### [facility] [address] [place] [address] Dr. Tg Fierro Hematocrit (Bld) [Volume fraction] 38.4 % Normal 36.0-48.0 [facility] Comment on above: Performed By: #### P T #### [facility] [address] [place] [address] Dr. Tg Fierro Hemoglobin (Bld) [Mass/Vol] 12.7 g/dL Normal 12.0-16.0 [facility] Comment on above: Performed By: #### P T #### [facility] [address] [place] [address] Dr. Tg Fierro IG # 0.05 10e3/ul Critically high 0.00-0.03 [facility] Comment on above: Performed By: #### P T #### [facility] [address] [place] [address] Dr. Tg Fierro IG % 0.7 % Critically high 0.0-0.5 [facility] Comment on above: Performed By: #### P T #### [facility] [address] [place] [address] Dr. Tg Fierro LYMPH # 2.6 103/ul Normal 1.2-3.8 [facility] Comment on above: Performed By: #### P T #### [facility] [address] [place] [address] Dr. Tg Fierro Lymphocytes/100 WBC (Bld) 34.2 % Normal 20.5-60.0 [facility] Comment on above: Performed By: #### P T #### [facility] [address] [place] [address] Dr. Tg Fierro MANUAL DIFF REQ NO Normal [facility] Comment on above: Performed By: #### P T #### [facility] [address] [place] [address] Dr. Tg Fierro MCH (RBC) [Entitic mass] 31.2 pg Normal 26.7-34.0 [facility] Comment on above: Performed By: #### P T #### [facility] [address] [place] [address] Dr. Tg Fierro MCHC (RBC) [Mass/Vol] 33.1 g/dL Normal 29.9-35.2 [facility] Comment on above: Performed By: #### P T #### [facility] [address] [place] [address] Dr. Tg Fierro MCV (RBC) [Entitic vol] 94.3 fL Normal 81.0-99.0 [facility] Comment on above: Performed By: #### P T #### [facility] [address] [place] [address] Dr. Tg Fierro MONO # 0.6 103/ul Normal 0.3-0.8 [facility] Comment on above: Performed By: #### P T #### [facility] [address] [place] [address] Dr. Tg Fierro Monocytes/100 WBC (Bld) 8.1 % Normal 1.7-12.0 [facility] Comment on above: Performed By: #### P T #### [facility] [address] [place] [address] Dr. Tg Fierro NEUT # 4.1 103/ul Normal 1.4-6.5 [facility] Comment on above: Performed By: #### P T #### [facility] [address] [place] [address] Dr. Tg Fierro Neutrophils/100 WBC (Bld) 52.7 % Normal 43.0-75.0 [facility] Comment on above: Performed By: #### P T #### [facility] [address] [place] [address] Dr. Tg Fierro Platelet mean volume (Bld) [Entitic vol] 8.7 fL Critically low 9.5-13.5 [facility] Comment on above: Performed By: #### P T #### [facility] [address] [place] [address] Dr. Tg Fierro PLT 278 103/ul Normal 150-450 [facility] Comment on above: Performed By: #### P T #### [facility] [address] [place] [address] Dr. Tg Fierro RBC 4.07 106/ul Critically low 4.20-5.40 [facility] Comment on above: Performed By: #### P T #### [facility] [address] [place] [address] Dr. Tg Fierro WBC 7.7 103/ul Normal 4.0-11.0 [facility] Comment on above: Performed By: #### P T #### [facility] [address] [place] [address] Dr. Tg Fierro PROF 14(COMP METB)on 023 Albumin [Mass/Vol] 3.9 g/dL Normal 3.4-5.0 [facility] Comment on above: Performed By: #### C MP #### [facility] [address] [place] [address] Dr. Tg Fierro Albumin/Globulin [Mass ratio] 1.4 {ratio} Normal [facility] Comment on above: Performed By: #### C MP #### [facility] [address] [address] [address] Tg Fierro ALP [Catalytic activity/Vol] 59 U/L Normal 46-116 [facility] Comment on above: Performed By: #### C MP #### [facility] [address] [address] [address] Tg Fierro ALT [Catalytic activity/Vol] 21 U/L Normal 14-59 [facility] Comment on above: Performed By: #### C MP #### [facility] [address] [address] [address] Tg Fierro Anion gap [Moles/Vol] 10.8 mmol/L Normal [facility] Comment on above: Performed By: #### C MP #### [facility] [address] [place] [address] Dr. Tg Fierro AST [Catalytic activity/Vol] 9 U/L Critically low 15-37 [facility] Comment on above: Performed By: #### C MP #### [facility] [address] [place] [address] Dr. Tg Fierro Bilirubin [Mass/Vol] 0.3 mg/dL Normal 0.2-1.0 [facility] Comment on above: Performed By: #### C MP #### [facility] [address] [place] [address] Dr. Tg Fierro Calcium [Mass/Vol] 9.1 mg/dL Normal 8.5-10.1 [facility] Comment on above: Performed By: #### C MP #### [facility] [address] [address] [address] Tg Fierro Chloride [Moles/Vol] 104 mmol/L Normal 98-107 [facility] Comment on above: Performed By: #### C MP #### [facility] [address] [address] [address] Tg Fierro CO2 [Moles/Vol] 28.3 mmol/L Normal 21.0-32.0 [facility] Comment on above: Performed By: #### C MP #### [facility] [address] [address] [address] Tg Fierro Creatinine [Mass/Vol] 0.86 mg/dL Normal 0.55-1.02 [facility] Comment on above: Performed By: #### C MP #### [facility] [address] [address] [address] Tg Fierro EGFR-AF AUSTRIAN >60 Normal >=60 [facility] [facility] Comment on above: Performed By: #### C MP #### [facility] [address] [address] [address] Tg Fierro EGFR-NON AF AUSTRIAN >60 Normal >=60 [facility] Comment on above: Performed By: #### C MP #### [facility] [address] [place] [address] Dr. Tg Fierro Globulin (S) [Mass/Vol] 2.7 g/dL Normal [facility] Comment on above: Performed By: #### C MP #### [facility] [address] [place] [address] Dr. Tg Fierro Glucose [Mass/Vol] 120 mg/dL Critically high 74-106 [facility] [place] [facility] Comment on above: Performed By: #### C MP #### [facility] [address] [place] [address] Dr. Tg Fierro Potassium [Moles/Vol] 4.1 mmol/L Normal 3.5-5.1 [facility] Comment on above: Performed By: #### C MP #### [facility] [address] [place] [address] Dr. Tg Fierro Protein [Mass/Vol] 6.6 g/dL Normal 6.4-8.[address] [facility] Comment on above: Performed By: #### C MP #### [facility] [address] [place] [address] Dr. Tg Fierro Sodium [Moles/Vol] 139 mmol/L Normal 136-145 [facility] Comment on above: Performed By: #### C MP #### [facility] [address] [place] [address] Dr. Tg Fierro Urea nitrogen [Mass/Vol] 13.0 mg/dL Normal 7.0-18.0 [facility] Comment on above: Performed By: #### C MP #### [facility] [address] [address] [address] Tg iFerro Urea nitrogen/Creatinine [Mass ratio] 15.1 mg/mg Normal [facility] Comment on above: Performed By: #### C MP #### [facility] [address] [address] [address] Tg Fierro PROTIMEon 09-24-2022 INR Coag (PPP) [Relative time] 1.35 {INR} Normal [facility] Comment on above: Performed By: #### P T #### [facility] [address] [place] [address] Dr. Tg Fierro INR GUIDELINES SEE BELOW Normal [facility] Comment on above: Result Comment: LAURENCE RED INR: 2.0 - 3.0 CONDITIONS NOT LISTED BELOW 2.5 - 3.5 FOR PROSTHETIC HEART VALVE REPLACEMENT 2.5 - 3.5 RECURRENT THROMBOSIS Performed By: #### P T #### [facility] [address] [place] [address] Dr. Tg Fierro PT Coag (PPP) [Time] 14.1 s Critically high 9.0-11.6 [facility] Comment on above: Performed By: #### P T #### [facility] [address] [place] [address] Dr. Tg Fierro SED RATE Former[facility] 2022 SED RATE 8 mm/hr Normal <=30 [facility] Comment on above: Performed By: #### C MP #### [facility] [address] [place] [address] Dr. Tg Fierro PROTIMEon 09-09-2022 INR Coag (PPP) [Relative time] 1.23 {INR} Normal [facility] Comment on above: Performed By: #### P T #### [facility] [address] [place] [address] Dr. Tg Fierro INR GUIDELINES SEE BELOW Normal [facility] Comment on above: Result Comment: LAURENCE RED INR: 2.0 - 3.0 CONDITIONS NOT LISTED BELOW 2.5 - 3.5 FOR PROSTHETIC HEART VALVE REPLACEMENT 2.5 - 3.5 RECURRENT THROMBOSIS Performed By: #### P T #### [facility] [address] [place], [place] [address] Dr. Tg Fierro PT Coag (PPP) [Time] 12.9 s Critically high 9.0-11.6 [facility] Comment on above: Performed By: #### P T #### [facility] [address] [place], [place] [address] Dr. Tg Fierro ECHOCARDIO M/2D COMPLETEon 0 09-02-2022 ECHOCARDIO M/2D COMPLETE Patient: WILDA SEN Exam Date: 09/02/2022 : 1945 Gender:F Ordering : DR JAYME PEREZ . Admission #: [id number] Family : Order #: [id number] CLICK HERE TO VIEW EXAM ECHOCARDIOGRAM REPORT [...] Bender M.D. on 09/03/2022 at 17:25 Normal [facility] GLYCOHEMOGLOBIN A1Con 2022 ADA RECOMMENDATION SEE BELOW Normal [facility] Comment on above: Result Comment: ADA RECOMMENDED LIMIT 4.0 - 6.0 ADA THERAPEUTIC TARGET < 7.0 ACTION SUGGESTED > 7.0 Performed By: #### A 1C #### [facility] [address] [place] [address] Dr. Tg Fierro Glucose [Mass/Vol] 148 mg/dL Normal [facility] Comment on above: Performed By: #### A 1C #### [facility] [address] [address] [address] Tg Fierro HbA1c (Bld) [Mass fraction] 6.8 % Critically high 4.5-6.2 [facility] Comment on above: Performed By: #### A 1C #### [facility] [address] [address] [address] Tg Fierro CBC AUTO DIFFon 08-05-2022 BASO # 0.1 103/ul Normal 0.0-0.1 [facility] Comment on above: Performed By: #### C BC #### [facility] [address] [address] [address] Tg Fierro Basophils/100 WBC (Bld) 0.8 % Normal 0.2-2.0 [facility] Comment on above: Performed By: #### C BC #### [facility] [address] [place] [address] Dr. Tg Fierro EO # 0.5 103/ul Normal 0.0-0.7 [facility] Comment on above: Performed By: #### C BC #### [facility] [address] [place] [address] Dr. Tg Fierro Eosinophils/100 WBC (Bld) 7.3 % Critically high 0.9-7.0 [facility] Comment on above: Performed By: #### C BC #### [facility] [address] [place] [address] Dr. Tg Fierro Erythrocyte distribution width (RBC) [Ratio] 13.4 % Normal 11.0-15.0 [facility] Comment on above: Performed By: #### C BC #### [facility] [address] [place] [address] Dr. Tg Fierro Hematocrit (Bld) [Volume fraction] 37.1 % Normal 36.0-48.0 [facility] Comment on above: Performed By: #### C BC #### [facility] [address] [place] [address] Dr. Tg Fierro Hemoglobin (Bld) [Mass/Vol] 12.9 g/dL Normal 12.0-16.0 [facility] Comment on above: Performed By: #### C BC #### [facility] [address] [place] [address] Dr. Tg Fierro IG # 0.03 10e3/ul Normal 0.00-0.03 [facility] Comment on above: Performed By: #### C BC #### [facility] [address] [place] [address] Dr. Tg Fierro IG % 0.5 % Normal 0.0-0.5 [facility] Comment on above: Performed By: #### C BC #### [facility] [address] [place] [address] Dr. gT Fierro LYMPH # 2.3 103/ul Normal 1.2-3.8 [facility] Comment on above: Performed By: #### C BC #### [facility] [address] [place] [address] Dr. Tg Fierro Lymphocytes/100 WBC (Bld) 34.9 % Normal 20.5-60.0 [facility] Comment on above: Performed By: #### C BC #### [facility] [address] [place] [address] Dr. Tg Fierro MANUAL DIFF REQ NO Normal [facility] Comment on above: Performed By: #### C BC #### [facility] [address] [place] [address] Dr. Tg Fierro MCH (RBC) [Entitic mass] 31.0 pg Normal 26.7-34.0 [facility] Comment on above: Performed By: #### C BC #### [facility] [address] [place] [address] Dr. Tg Fierro MCHC (RBC) [Mass/Vol] 34.8 g/dL Normal 29.9-35.2 [facility] Comment on above: Performed By: #### C BC #### [facility] [address] [place] [address] Dr. Tg Fierro MCV (RBC) [Entitic vol] 89.2 fL Normal 81.0-99.0 [facility] Comment on above: Performed By: #### C BC #### [facility] [address] [place] [address] Dr. Tg Fierro MONO # 0.4 103/ul Normal 0.3-0.8 [facility] Comment on above: Performed By: #### C BC #### [facility] [address] [place] [address] Dr. Tg Fierro Monocytes/100 WBC (Bld) 6.1 % Normal 1.7-12.0 [facility] Comment on above: Performed By: #### C BC #### [facility] [address] [place] [address] Dr. Tg Fierro NEUT # 3.3 103/ul Normal 1.4-6.5 [facility] Comment on above: Performed By: #### C BC #### [facility] [address] [place] [address] Dr. Tg Fierro Neutrophils/100 WBC (Bld) 50.4 % Normal 43.0-75.0 [facility] Comment on above: Performed By: #### C BC #### [facility] [address] [place] [address] Dr. Tg Fierro Platelet mean volume (Bld) [Entitic vol] 8.6 fL Critically low 9.5-13.5 [facility] Comment on above: Performed By: #### C BC #### [facility] [address] [place] [address] Dr. Tg Fierro PLT 336 103/ul Normal 150-450 [facility] Comment on above: Performed By: #### C BC #### [facility] [address] [place] [address] Dr. Tg Fierro RBC 4.16 106/ul Critically low 4.20-5.40 [facility] Comment on above: Performed By: #### C BC #### [facility] [address] [place] [address] Dr. Tg Fierro WBC 6.4 103/ul Normal 4.0-11.0 [facility] Comment on above: Performed By: #### C BC #### [facility] [address] [place] [address] Dr. Tg Fierro PROF 14(COMP METB)on 023 Albumin [Mass/Vol] 3.9 g/dL Normal 3.4-5.0 [facility] Comment on above: Performed By: #### P T #### [facility] [address] [place] [address] Dr. Tg Fierro Albumin/Globulin [Mass ratio] 1.3 {ratio} Normal [facility] Comment on above: Performed By: #### P T #### [facility] [address] [place] [address] Dr. Tg Fierro ALP [Catalytic activity/Vol] 60 U/L Normal 46-116 [facility] Comment on above: Performed By: #### P T #### [facility] [address] [place] [address] Dr. Tg Fierro ALT [Catalytic activity/Vol] 21 U/L Normal 14-59 [facility] Comment on above: Performed By: #### P T #### [facility] [address] [address] [address] Tg Fierro Anion gap [Moles/Vol] 15.2 mmol/L Normal [facility] Comment on above: Performed By: #### P T #### [facility] [address] [address] [address] Tg Fierro AST [Catalytic activity/Vol] 14 U/L Critically low 15-37 [facility] Comment on above: Performed By: #### P T #### [facility] [address] [address] [address] Tg Fierro Bilirubin [Mass/Vol] 0.4 mg/dL Normal 0.2-1.0 [facility] Comment on above: Performed By: #### P T #### [facility] [address] [place] [address] Dr. Tg Fierro Calcium [Mass/Vol] 9.3 mg/dL Normal 8.5-10.1 [facility] Comment on above: Performed By: #### P T #### [facility] [address] [place] [address] Dr. Tg Fierro Chloride [Moles/Vol] 102 mmol/L Normal 98-107 [facility] Comment on above: Performed By: #### P T #### [facility] [address] [place] [address] Dr. Tg Fierro CO2 [Moles/Vol] 26.8 mmol/L Normal 21.0-32.0 [facility] Comment on above: Performed By: #### P T #### [facility] [address] [address] [address] Tg Fierro Creatinine [Mass/Vol] 0.74 mg/dL Normal 0.55-1.02 [facility] Comment on above: Performed By: #### P T #### [facility] [address] [place] [address] Dr. Tg Fierro EGFR-AF AUSTRIAN >60 Normal >=60 [facility] Comment on above: Performed By: #### P T #### [facility] [address] [address] [address] Tg Fierro EGFR-NON AF AUSTRIAN >60 Normal >=60 [facility] Comment on above: Performed By: #### P T #### [facility] [address] [address] [address] Tg Fierro Globulin (S) [Mass/Vol] 3.1 g/dL Normal [facility] Comment on above: Performed By: #### P T #### [facility] [address] [address] [address] Tg Fierro Glucose [Mass/Vol] 148 mg/dL Critically high 74-106 [facility] [place] [facility] Comment on above: Performed By: #### P T #### [facility] [address] [address] [address] Tg Fierro Potassium [Moles/Vol] 4.0 mmol/L Normal 3.5-5.1 [facility] Comment on above: Performed By: #### P T #### [facility] [address] [place] [address] Dr. Tg Fierro Protein [Mass/Vol] 7.0 g/dL Normal 6.4-8.2 [facility] Comment on above: Performed By: #### P T #### [facility] [address] [address] [address] Tg Fierro Sodium [Moles/Vol] 140 mmol/L Normal 136-145 [facility] Comment on above: Performed By: #### P T #### [facility] [address] [address] [address] Tg Fierro Urea nitrogen [Mass/Vol] 12.0 mg/dL Normal 7.0-18.0 [facility] Comment on above: Performed By: #### P T #### [facility] [address] [address] [address] Tg Fierro Urea nitrogen/Creatinine [Mass ratio] 16.2 mg/mg Normal [facility] Comment on above: Performed By: #### P T #### [facility] [address] [place] [address] Dr. Tg Fierro SED RATE [facility] 2022 SED RATE 30 mm/hr Normal <=30 [facility] Comment on above: Performed By: #### S EDR #### [facility] [address] [address] [address] Tg Fierro CBC AUTO DIFFon 04-15-2022 BASO # 0.1 103/ul Normal 0.0-0.1 [facility] Comment on above: Performed By: #### C BC #### [facility] [address] [place] [address] Dr. Tg Fierro Basophils/100 WBC (Bld) 0.6 % Normal 0.2-2.0 [facility] Comment on above: Performed By: #### C BC #### [facility] [address] [place] [address] Dr. Tg Fierro EO # 0.2 103/ul Normal 0.0-0.7 [facility] Comment on above: Performed By: #### C BC #### [facility] [address] [place] [address] Dr. Tg Fierro Eosinophils/100 WBC (Bld) 3.1 % Normal 0.9-7.0 [facility] Comment on above: Performed By: #### C BC #### [facility] [address] [place] [address] Dr. Tg Fierro Erythrocyte distribution width (RBC) [Ratio] 13.6 % Normal 11.0-15.0 [facility] Comment on above: Performed By: #### C BC #### [facility] [address] [place] [address] Dr. Tg Fierro Hematocrit (Bld) [Volume fraction] 42.3 % Normal 36.0-48.0 [facility] Comment on above: Performed By: #### C BC #### [facility] [address] [place] [address] Dr. Tg Fierro Hemoglobin (Bld) [Mass/Vol] 13.2 g/dL Normal 12.0-16.0 [facility] Comment on above: Performed By: #### C BC #### [facility] [address] [place] [address] Dr. Tg Fierro IG # 0.04 10e3/ul Critically high 0.00-0.03 [facility] Comment on above: Performed By: #### C BC #### [facility] [address] [place] [address] Dr. Tg Fierro IG % 0.5 % Normal 0.0-0.5 [facility] Comment on above: Performed By: #### C BC #### [facility] [address] [place] [address] Dr. Tg Fierro LYMPH # 2.5 103/ul Normal 1.2-3.8 [facility] Comment on above: Performed By: #### C BC #### [facility] [address] [place] [address] Dr. Tg Fierro Lymphocytes/100 WBC (Bld) 31.6 % Normal 20.5-60.0 [facility] Comment on above: Performed By: #### C BC #### [facility] [address] [place] [address] Dr. Tg Fierro MANUAL DIFF REQ NO Normal [facility] Comment on above: Performed By: #### C BC #### [facility] [address] [place] [address] Dr. Tg Fierro MCH (RBC) [Entitic mass] 30.3 pg Normal 26.7-34.0 [facility] Comment on above: Performed By: #### C BC #### [facility] [address] [place] [address] Dr. Tg Fierro MCHC (RBC) [Mass/Vol] 31.2 g/dL Normal 29.9-35.2 [facility] Comment on above: Performed By: #### C BC #### [facility] [address] [place] [address] Dr. Tg Fierro MCV (RBC) [Entitic vol] 97.0 fL Normal 81.0-99.0 [facility] Comment on above: Performed By: #### C BC #### [facility] [address] [place] [address] Dr. Tg Fierro MONO # 0.5 103/ul Normal 0.3-0.8 [facility] Comment on above: Performed By: #### C BC #### [facility] [address] [address] [address] Tg Fierro Monocytes/100 WBC (Bld) 6.3 % Normal 1.7-12.0 [facility] Comment on above: Performed By: #### C BC #### [facility] [address] [address] [address] Tg Fierro NEUT # 4.5 103/ul Normal 1.4-6.5 [facility] Comment on above: Performed By: #### C BC #### [facility] [address] [place] [address] Dr. Tg Fierro Neutrophils/100 WBC (Bld) 57.9 % Normal 43.0-75.0 [facility] Comment on above: Performed By: #### C BC #### [facility] [address] [place] [address] Dr. Tg Fierro Platelet mean volume (Bld) [Entitic vol] 8.6 fL Critically low 9.5-13.5 [facility] Comment on above: Performed By: #### C BC #### [facility] [address] [place] [address] Dr. Tg Fierro PLT 295 103/ul Normal 150-450 [facility] Comment on above: Performed By: #### C BC #### [facility] [address] [place] [address] Dr. Tg Fierro RBC 4.36 106/ul Normal 4.20-5.40 [facility] Comment on above: Performed By: #### C BC #### [facility] [address] [place] [address] Dr. Tg Fierro WBC 7.8 103/ul Normal 4.0-11.0 [facility] Comment on above: Performed By: #### C BC #### [facility] [address] [place] [address] Dr. Tg Fierro PROF 14(COMP METB)on 022 Albumin [Mass/Vol] 4.5 g/dL Normal 3.4-5.0 [facility] Comment on above: Performed By: #### C MP #### [facility] [address] [address] [address] Tg Fierro Albumin/Globulin [Mass ratio] 1.5 {ratio} Normal [facility] Comment on above: Performed By: #### C MP #### [facility] [address] [address] [address] Tg Fierro ALP [Catalytic activity/Vol] 62 U/L Normal 46-116 [facility] Comment on above: Performed By: #### C MP #### [facility] [address] [address] [address] Tg Fierro ALT [Catalytic activity/Vol] 25 U/L Normal 14-59 [facility] Comment on above: Performed By: #### C MP #### [facility] [address] [place] [address] Dr. Tg Fierro Anion gap [Moles/Vol] 10.6 mmol/L Normal [facility] Comment on above: Performed By: #### C MP #### [facility] [address] [place] [address] Dr. Tg Fierro AST [Catalytic activity/Vol] 12 U/L Critically low 15-37 [facility] Comment on above: Performed By: #### C MP #### [facility] [address] [place] [address] Dr. Tg Fierro Bilirubin [Mass/Vol] 0.5 mg/dL Normal 0.2-1.0 [facility] Comment on above: Performed By: #### C MP #### [facility] [address] [place] [address] Dr. Tg Fierro Calcium [Mass/Vol] 9.8 mg/dL Normal 8.5-10.[address] [facility] Comment on above: Performed By: #### C MP #### [facility] [address] [place] [address] Dr. Tg Fierro Chloride [Moles/Vol] 102 mmol/L Normal 98-107 [facility] Comment on above: Performed By: #### C MP #### [facility] [address] [place], [place] [address] Dr. Tg Fierro CO2 [Moles/Vol] 31.8 mmol/L Normal 21.0-32.0 [facility] Comment on above: Performed By: #### C MP #### [facility] [address] [place] [address] Dr. Tg Fierro Creatinine [Mass/Vol] 0.88 mg/dL Normal 0.55-1.02 [facility] Comment on above: Performed By: #### C MP #### [facility] [address] [place] [address] Dr. Tg Fierro EGFR-AF AUSTRIAN >60 Normal >=60 [facility] Comment on above: Performed By: #### C MP #### [facility] [address] [place] [address] Dr. Tg Fierro EGFR-NON AF AUSTRIAN >60 Normal >=60 [facility] Comment on above: Performed By: #### C MP #### [facility] [address] [place] [address] Dr. Tg Fierro Globulin (S) [Mass/Vol] 3.1 g/dL Normal [facility] Comment on above: Performed By: #### C MP #### [facility] [address] [place] [address] Dr. Tg Fierro Glucose [Mass/Vol] 187 mg/dL Critically high 74-106 [facility] Comment on above: Performed By: #### C MP #### [facility] [address] [place] [address] Dr. Tg Fierro Potassium [Moles/Vol] 4.4 mmol/L Normal 3.5-5.1 [facility] Comment on above: Performed By: #### C MP #### [facility] [address] [place] [address] Dr. Tg Fierro Protein [Mass/Vol] 7.6 g/dL Normal 6.4-8.[address] [facility] Comment on above: Performed By: #### C MP #### [facility] [address] [place] [address] Dr. Tg Fierro Sodium [Moles/Vol] 140 mmol/L Normal 136-145 [facility] Comment on above: Performed By: #### C MP #### [facility] [address] [place] [address] Dr. Tg Fierro Urea nitrogen [Mass/Vol] 14.0 mg/dL Normal 7.0-18.0 [facility] Comment on above: Performed By: #### C MP #### [facility] [address] [place] [address] Dr. Tg Fierro Urea nitrogen/Creatinine [Mass ratio] 15.9 mg/mg Normal [facility] Comment on above: Performed By: #### C MP #### [facility] [address] [place] [address] Dr. Tg Fierro SED RATE NEW [facility] 2021 SED RATE 5 mm/hr Normal <=30 [facility] Comment on above: Performed By: #### S EDR #### [facility] [address] [place] [address] Dr. Tg Fierro CBC AUTO DIFFon 02-07-2022 BASO # 0.0 103/ul Normal 0.0-0.1 [facility] Comment on above: Performed By: #### P T #### [facility] [address] [place] [address] Dr. Tg Fierro Basophils/100 WBC (Bld) 0.6 % Normal 0.2-2.0 [facility] Comment on above: Performed By: #### P T #### [facility] [address] [place] [address] Dr. Tg Fierro EO # 0.4 103/ul Normal 0.0-0.7 [facility] Comment on above: Performed By: #### P T #### [facility] [address] [place] [address] Dr. Tg Fierro Eosinophils/100 WBC (Bld) 5.4 % Normal 0.9-7.0 [facility] Comment on above: Performed By: #### P T #### [facility] [address] [place] [address] Dr. Tg Fierro Erythrocyte distribution width (RBC) [Ratio] 13.5 % Normal 11.0-15.0 [facility] Comment on above: Performed By: #### P T #### [facility] [address] [place] [address] Dr. Tg Fierro Hematocrit (Bld) [Volume fraction] 39.4 % Normal 36.0-48.0 [facility] Comment on above: Performed By: #### P T #### [facility] [address] [place] [address] Dr. Tg Fierro Hemoglobin (Bld) [Mass/Vol] 12.8 g/dL Normal 12.0-16.0 [facility] Comment on above: Performed By: #### P T #### [facility] [address] [place] [address] Dr. Tg Fierro IG # 0.02 10e3/ul Normal 0.00-0.03 [facility] Comment on above: Performed By: #### P T #### [facility] [address] [place] [address] Dr. Tg Fierro IG % 0.3 % Normal 0.0-0.5 [facility] Comment on above: Performed By: #### P T #### [facility] [address] [place] [address] Dr. Tg Fierro LYMPH # 2.4 103/ul Normal 1.2-3.8 [facility] Comment on above: Performed By: #### P T #### [facility] [address] [place] [address] Dr. Tg Fierro Lymphocytes/100 WBC (Bld) 36.2 % Normal 20.5-60.0 [facility] Comment on above: Performed By: #### P T #### [facility] [address] [place] [address] Dr. Tg Fierro MANUAL DIFF REQ NO Normal [facility] Comment on above: Performed By: #### P T #### [facility] [address] [place] [address] Dr. Tg Fierro MCH (RBC) [Entitic mass] 31.0 pg Normal 26.7-34.0 [facility] Comment on above: Performed By: #### P T #### [facility] [address] [address] [address] Tg Fierro MCHC (RBC) [Mass/Vol] 32.5 g/dL Normal 29.9-35.2 [facility] Comment on above: Performed By: #### P T #### [facility] [address] [address] [address] Tg Fierro MCV (RBC) [Entitic vol] 95.4 fL Normal 81.0-99.0 [facility] Comment on above: Performed By: #### P T #### [facility] [address] [address] [address] Tg Fierro MONO # 0.5 103/ul Normal 0.3-0.8 [facility] Comment on above: Performed By: #### P T #### [facility] [address] [address] [address] Tg Fierro Monocytes/100 WBC (Bld) 8.0 % Normal 1.7-12.0 [facility] Comment on above: Performed By: #### P T #### [facility] [address] [address] [address] Tg Fierro NEUT # 3.3 103/ul Normal 1.4-6.5 [facility] Comment on above: Performed By: #### P T #### [facility] [address] [address] [address] Tg Fierro Neutrophils/100 WBC (Bld) 49.5 % Normal 43.0-75.0 [facility] Comment on above: Performed By: #### P T #### [facility] [address] [address] [address] Tg Fierro Platelet mean volume (Bld) [Entitic vol] 8.7 fL Critically low 9.5-13.5 [facility] Comment on above: Performed By: #### P T #### [facility] [address] [address] [address] Tg Fierro PLT 276 103/ul Normal 150-450 [facility] Comment on above: Performed By: #### P T #### [facility] [address] [address] [address] Tg Fierro RBC 4.13 106/ul Critically low 4.20-5.40 [facility] Comment on above: Performed By: #### P T #### [facility] [address] [address] [address] Tg Fierro WBC 6.7 103/ul Normal 4.0-11.0 [facility] Comment on above: Performed By: #### P T #### [facility] [address] [place] [address] Dr. Tg Fierro GLYCOHEMOGLOBIN A1Con 2021 ADA RECOMMENDATION SEE BELOW Normal [facility] Comment on above: Result Comment: ADA RECOMMENDED LIMIT 4.0 - 6.0 ADA THERAPEUTIC TARGET < 7.0 ACTION SUGGESTED > 7.0 Performed By: #### A 1C #### [facility] [address] [place] [address] Dr. Tg Fierro Glucose [Mass/Vol] 151 mg/dL Normal [facility] Comment on above: Performed By: #### A 1C #### [facility] [address] [place] [address] Dr. Tg Fierro HbA1c (Bld) [Mass fraction] 6.9 % Critically high 4.5-6.2 [facility] Comment on above: Performed By: #### A 1C #### [facility] [address] [place] [address] Dr. Tg Fierro PROF 14(COMP METB)on 022 Albumin [Mass/Vol] 3.8 g/dL Normal 3.4-5.0 [facility] Comment on above: Performed By: #### P T #### [facility] [address] [place] [address] Dr. Tg Fierro Albumin/Globulin [Mass ratio] 1.3 {ratio} Normal [facility] Comment on above: Performed By: #### P T #### [facility] [address] [address] [address] Tg Fierro ALP [Catalytic activity/Vol] 43 U/L Critically low 46-116 [facility] Comment on above: Performed By: #### P T #### [facility] [address] [address] [address] Tg Fierro ALT [Catalytic activity/Vol] 19 U/L Normal 14-59 [facility] Comment on above: Performed By: #### P T #### [facility] [address] [address] [address] Tg Fierro Anion gap [Moles/Vol] 13.7 mmol/L Normal [facility] Comment on above: Performed By: #### P T #### [facility] [address] [address] [address] Tg Fierro AST [Catalytic activity/Vol] 11 U/L Critically low 15-37 [facility] Comment on above: Performed By: #### P T #### [facility] [address] [place] [address] Dr. Tg Fierro Bilirubin [Mass/Vol] 0.4 mg/dL Normal 0.2-1.0 [facility] Comment on above: Performed By: #### P T #### [facility] [address] [address] [address] Tg Fierro Calcium [Mass/Vol] 9.1 mg/dL Normal 8.5-10.1 [facility] Comment on above: Performed By: #### P T #### [facility] [address] [address] [address] Tg Fierro Chloride [Moles/Vol] 104 mmol/L Normal 98-107 [facility] Comment on above: Performed By: #### P T #### [facility] [address] [address] [address] Tg Fierro CO2 [Moles/Vol] 28.5 mmol/L Normal 21.0-32.0 [facility] Comment on above: Performed By: #### P T #### [facility] [address] [place] [address] Dr. Tg Fierro Creatinine [Mass/Vol] 0.77 mg/dL Normal 0.55-1.02 [facility] Comment on above: Performed By: #### P T #### [facility] [address] [address] [address] Tg Fierro EGFR-AF AUSTRIAN >60 Normal >=60 [facility] Comment on above: Performed By: #### P T #### [facility] [address] [address] [address] Tg Fierro EGFR-NON AF AUSTRIAN >60 Normal >=60 [facility] Comment on above: Performed By: #### P T #### [facility] [address] [address] [address] Tg Fierro Globulin (S) [Mass/Vol] 3.0 g/dL Normal [facility] Comment on above: Performed By: #### P T #### [facility] [address] [address] [address] Tg Fierro Glucose [Mass/Vol] 124 mg/dL Critically high 74-106 [facility] Comment on above: Performed By: #### P T #### [facility] [address] [address] [address] Tg Fierro Potassium [Moles/Vol] 4.2 mmol/L Normal 3.5-5.1 [facility] Comment on above: Performed By: #### P T #### [facility] [address] [address] [address] Tg Fierro Protein [Mass/Vol] 6.8 g/dL Normal 6.4-8.[address] [facility] Comment on above: Performed By: #### P T #### [facility] [address] [address] [address] Tg Fierro Sodium [Moles/Vol] 142 mmol/L Normal 136-[address] [facility] Comment on above: Performed By: #### P T #### [facility] [address] [address] [address] Tg Fierro Urea nitrogen [Mass/Vol] 12.0 mg/dL Normal 7.0-18.0 [facility] Comment on above: Performed By: #### P T #### [facility] [address] [address] [address] Tg Fierro Urea nitrogen/Creatinine [Mass ratio] 15.6 mg/mg Normal [facility] Comment on above: Performed By: #### P T #### [facility] [address] [address] [address] Tg Fierro SED RATE [facility] 2021 SED RATE 8 mm/hr Normal <=30 [facility] Comment on above: Performed By: #### C MP #### [facility] [address] [address] [address] Tg Fierro COVID Quick Testingon 2020 Result Positive [facility] Other Vital Signs Date Time Vital Sign Value Performing Clinician Facility 08-13-2023 10:47-0500 Blood Pressure Location Renato SANTACRUZ [facility] 08-13-2023 10:47-0500 Diastolic blood pressure 62 mm[Hg] Renato SANTACRUZ [facility] 08-13-2023 10:47-0500 Heart rate 82 /min Renato SANTACRUZ [facility] 08-13-2023 10:47-0500 Respiratory rate 16 /min Renato SANTACRUZ [facility] 08-13-2023 10:47-0500 Systolic blood pressure 105 mm[Hg] Renato SANTACRUZ [facility] 07-25-2023 09:20-0500 Body height 160.02 cm Lou Glover Other [facility] Other 07-25-2023 09:20-0500 Body mass index (BMI) [Ratio] 23.91 kg/m2 Lou Glover Other [facility] Other 07-25-2023 09:20-0500 Body temperature 97.7 [degF] Lou Glover Other [facility] Other 07-25-2023 09:20-0500 Body weight 61.24 kg Lou Glover Other [facility] Other 07-25-2023 09:20-0500 Diastolic blood pressure 74 mm[Hg] Lou Glover Other [facility] Other 07-25-2023 09:20-0500 Respiratory rate 18 /min Lou Glover Other [facility] Other 07-25-2023 09:20-0500 SaO2% (BldA) [Mass fraction] 96 % Lou Glover Other [facility] Other 07-25-2023 09:20-0500 Systolic blood pressure 120 mm[Hg] Lou Glover Other [facility] Other 03-26-2023 13:15-0400 Body height 160.02 cm MD Jayme Perez Work Phone: [facility] 03-26-2023 13:15-0400 Body temperature 98.2 [degF] MD Jayme Perez Work Phone: [facility] 03-26-2023 13:15-0400 Body weight 66 kg MD Jayme Perez Work Phone: [facility] 03-26-2023 13:15-0400 Diastolic blood pressure 71 mm[Hg] MD Jayme Perez Work Phone: [facility] 03-26-2023 13:15-0400 Heart rate 87 /min MD Jayme Perez Work Phone: [facility] 03-26-2023 13:15-0400 Respiratory rate 16 /min MD Jayme Perez Work Phone: [facility] 03-26-2023 13:15-0400 SaO2% (BldA) [Mass fraction] 97 % MD Jayme Perez Work Phone: [facility] 03-26-2023 13:15-0400 Systolic blood pressure 117 mm[Hg] MD Jayme Perez Work Phone: [facility] 05-21-2021 13:15-0500 Body height 160.02 cm Astrid Olivia Other [facility] Other 05-21-2021 13:15-0500 Body mass index (BMI) [Ratio] 23.91 kg/m2 Astrid Olivia Other [facility] Other 05-21-2021 13:15-0500 Body temperature 97.3 [degF] Astrid Ryanault Other [facility] Other 05-21-2021 13:15-0500 Body weight 61.24 kg Astrid Ryanault Other [facility] Other 05-21-2021 13:15-0500 SaO2% (BldA) [Mass fraction] 94 % Astrid Olivia Other [employer] Other Encounters Encounter Date Encounter Type Care Provider Facility Start: 07-12-2024 ambulatory Williams SHEPHERD Facility : [facility] Start: 10-14-2023 ambulatory Williams SHEPHERD Facility : [place] Start: 08-14-2023 ambulatory Renato Shaikhi ty:CD:[id number] Start: 08-13-2023 End: 08-14-2023 ambulatory Renato SANTACRUZ Facility: [facility] Start: 08-13-2023 End: 08-13-2023 Patient encounter procedure Rentao Arzola ANGELITO [facility] Start: 08-07-2023 End: 08-07-2023 ambulatory JAYME PEREZ Not Available Start: 07-30-2023 End: 07-30-2023 ambulatory JAYME PEREZ Not Available Start: 07-25-2023 End: 07-25-2023 ambulatory Lou Glover Other [place] [employer] Other Start: 07-25-2023 Office outpatient visit 25 minutes Lou Glover [facility] Start: 07-10-2023 End: 07-10-2023 ambulatory FELICIA D ZAHLER Not Available Start: 07-02-2023 End: 07-02-2023 ambulatory FELICIA D ZAHLER Not Available Start: 06-25-2023 End: 06-25-2023 ambulatory FELICIA D ZAHLER Not Available Start: 06-18-2023 End: 06-18-2023 ambulatory FELICIA D ZAHLER Not Available Start: 04-07-2023 End: 04-07-2023 ambulatory Williams Shepherd Facility:[facility] Start: 04-07-2023 End: 04-07-2023 Departed Referred MD Jayme Perez Work Phone: [facility] [place] Start: 04-07-2023 End: 04-08-2023 ambulatory MD Jayme Perez Work Phone: [facility] Work Phone: Start: 03-26-2023 End: 03-26-2023 ambulatory Williams Shepherd Facility:[facility] Start: 03-26-2023 End: 03-26-2023 Patient encounter procedure MD Jayme Perez Work Phone: [facility] [employer] Work Phone: Start: 03-20-2023 End: 03-21-2023 ambulatory Williams SHEPHERD [facility] Start: 03-20-2023 End: 03-20-2023 Lab Drop off Williams SHEPHERD [facility] Start: 03-20-2023 End: 03-20-2023 Patient encounter procedure Williams SHEPHERD [facility] Start: 02-03-2023 End: 02-04-2023 ambulatory Williams SHEPHERD Facility: [facility] Start: 11-11-2022 End: 12-11-[address] JAYME PEREZ . Facility: Start: 10-25-2022 End: 10-26-[address] RADAMES MONTEIRO Facility: Start: 10-14-2022 End: 10-15-[address] JAYME PEREZ . Facility: Start: 09-24-2022 End: 09-25-[address] RADAMES MONTEIRO Facility: Start: 09-09-2022 End: 09-10-[address] JAYME PEREZ . Facility: Start: 09-02-2022 End: 09-03-[address] JAYME PEREZ . Facility: Start: 08-09-2022 End: 08-10-[address] JAYME PEREZ . Facility: Start: 08-05-2022 End: 08-06-[address] RADAMES MONTEIRO Facility: Start: 04-15-2022 End: 04-16-[address] RADAMES MONTEIRO Facility:[facility] Start: 02-20-2022 End: 02-21-[address] RADAMES MONTEIRO Facility:[facility] Start: 02-07-2022 End: 02-08-[address] JAYME PEREZ . Facility: Start: 05-21-2021 End: 05-21-2021 ambulatory Astrid Baker Other [employer] Other Start: 05-21-2021 Office outpatient visit 15 minutes Astrid Baker [facility] Procedures Date Procedure [...] 09-10-2010 Cystoscopic removal of ureteric stent Williams [employer] Start: 08-29-2010 Extracorporeal shock wave lithotripsy of calculus of kidney Williams SHEPHERD Start: 08-23-2010 Cystoscopic insertio n of ureteric stent Williams SHEPHERD Start: 03-02-2008 Endoscopic retrograd e pyelogram Williams [employer] Start: 10-16-2004 Cystoscopic anastomo sis of ureter to bladder with insertion of stent into ureter Williams [employer] Abdominal hysterectomy Bhavesh astrid Remote Assistant Appendectomy Renato SANTACRUZ Extraction of cataract Bhavesh astrid Remote Assistant Partial lobectomy of lung Pa gamal SANTACRUZ Tonsillectomy Renato Remote Assistant Plan of Treatment Date Care Activity Detail Author Start: 04-07-2023 Abdomen endoscopy OR Cysto/Retro/Stent/Stone /Holmium Laser (Right) [facility] Immunizations Immunization Date Immunization Notes Care Provider Fa cility NEGATED: Highlighted row has not occurred!08-13-2023 influenza virus vaccine, unspecified formulation Renato SANTACRUZ [facility] NEGATED: Highlighted row has not occurred!08-13-2023 SARS-CoV-2 mRNA (tozinameran 5y-11y) vaccine Renato SANTACRUZ [facility] NEGATED: Highlighted row has not occurred!09-21-2019 influenza virus vaccine, live, attenuated, for intranasal use [employer] [facility] NEGATED: Highlighted row has not occurred!08-20-2019 influenza virus vaccine, live, attenuated, for intranasal use [employer] [facility] Payers Date Payer Category Payer Self-pay [id number] 2022 Medicare [id number] 1959 Medicare [id number] 2.1 [id number] 1959 Unknown [id number] 1946 Unknown [id number] 2.16.84 0.1.118766.3.579.2.593 1946 Unknown [id number] 2.16.84 0.1.379813.3.579.2.593 1946 Unknown [id number] 2.16.84 0.1.417913.3.579.2.593 1946 Unknown [id number] 2.16.84 0.1.270725.3.579.2.593 1946 Unknown [id number] 2.16.84 0.1.375707.3.579.2.593 1946 Unknown [id number] 2.16.84 0.1.303822.3.579.2.593 1946 Unknown [id number] 2.16.84 0.1.674115.3.579.2.593 1946 Unknown [id number] 2.16.84 0.1.456128.3.579.2.593 1946 Unknown [id number] 2.16.84 0.1.363896.3.579.2.593 1946 Unknown [id number] 2.16.84 0.1.905285.3.579.2.593 1946 Unknown [id number] 2.16.84 0.1.780248.3.579.2.593 1946 Unknown [id number] 2.16.84 0.1.275521.3.579.2.593 1946 Unknown [id number] 2.16.84 0.1.738614.3.579.2.593 1946 Unknown [id number] 2.16.84 0.1.854084.3.579.2.1259 1946 Unknown [id number] 2.16.84 0.1.777400.3.579.2.1259 1946 Unknown [id number] 2.16.840 .1.776829.3.579.2.1259 1946 Unknown [id number] 2.16.840 .1.411544.3.579.2.1259 1946 Unknown [id number] 2.16.840 .1.840658.3.579.2.1259 1946 Unknown [id number] 2.16.840 .1.607122.3.579.2.125 1946 Unknown [id number] 2.16.8 40.1.676108.3.579.2.727 1946 Unknown [id number] 2.16.8 40.1.499738.3.579.2.727 1946 Unknown [id number] 2.16.8 40.1.033149.3.579.2.727 1946 Unknown [id number] 2.16.8 40.1.197692.3.579.2.727 1946 Unknown [id number] 2.16.8 40.1.535174.3.579.2.727 1946 Unknown [id number] 2.16.8 40.1.105538.3.579.2.727 Unknown [id number] 2.16.8 40.1.697068.3.579.2.531 Unknown [id number] 2.16.8 40.1.476231.3.579.2.531 Social History Date Type Detail Facility Sex Assigned At [employer] Other Start: 02-03-2023 End: 08-13-2023 Tobacco smoking status Ex-smoker (finding) [facility] Tobacco smoking status Never [facility] Sex Assigned At Female [facility] Start: 1945 Sex Assigned At Female [facility] Functional Status Date Assessment Result Facility 08-13-2023 Functional Status N/A [facility] Clinical Notes 02-21-2022 to 08-13-2023 Note Date [...] including vitamins, herbs, eye drops, creams, and yzfz-tpb-qiumvqg medicines. Any problems you or family members [...] provider tells you to take them. ?Taking dycx-fxq-mldvssj medicines, vitamins, herbs, and supplements. Eating and [...] provider. Document Revised: 11/06/2022 Document Reviewed: 03/04/2022 [employer] Patient Education 2022 [employer] Follow Up Care 08/12/2023 14:37:00 With:ANGELITO AGUIAR, Renato R, URL Address: [facility] [address] [place] [phone] When: Unknown Comments:sched ureteroscopyf/u w/ [facility] scheduled 10/14/23 [facility] 07-25-2023 Evaluation note Encounter Date Diagnosis Assessment [...] care as directed rx of steroid and [place], cool mist humidification. May use Tylenol as directed. Immediate eval for signs of respiratory distress, difficulty breathing poor PO intake, signs of dehydration, fever, or other concerning symptoms. Otherwise, follow up with PCP in 2-3 days. Patient verbalizes understanding and is agreeable to treatment plan. Patient sent home in stable condition. [employer] Other [id number] NotePROCEDURE: XR FOOT LT MIN 3 VIEWS COMPARISON: None. HISTORY: Pain in left foot FINDINGS: BONES:No acute fracture or dislocation. Mild enthesopathic spurring of the calcaneus. SOFT TISSUES:Negative. No visible soft tissue swelling. EFFUSION:None visible. OTHER: Negative. IMPRESSION: Mild enthesopathic spurring of the calcaneus Electronically authenticated by: BLANCA ZAVALA Date: 2022-02-21 [facility]ments Appointment Date:07/12/2024 10:45:00 AM Scheduled Provider:Williams SHEPHERD MD Location:[facility] Appointment Type:URO Office Visit [facility] Evaluation + Plan note Future Appointments Appointment Date:07/12/2024 10:45:00 AM Scheduled Provider:Williams SHEPHERD MD Location:[facility] Appointment Type:URO Office Visit Diagnostic Tests Pending * Calculi [facility] Appointment Date:10/14/2023 09:15:00 AM Scheduled Provider:Williams SHEPHERD MD Location:[facility] Appointment Type:URO Office Visit Appointment Date:07/12/2024 10:45:00 AM Scheduled Provider:Williams SHEPHERD MD Location:[facility] Appointment Type:URO Office Visit [facility] [employer] Other Evaluation noteNo assessment information available [facility] Work Phone: History [facility] [employer] Other History general Narrative - Reported* Type Description Date Medical History Arthritis Medical History diabetes mallitus Surgical History cataract surgery [facility] [employer] Other Hospital course Narrative No data available for this section [facility] Hospital Discharge instructions No data available for this section [facility] [employer] Progress note No data available for this section [facility] [employer] Summary Purpose Family History No Family History [...] content) DATE CREATED AUTHOR 12/20/2022 [facility] DATE CREATED AUTHOR AUTHOR'S ORGANIZ ATION 06/09/2023 [facility] DATE CREATED AUTHOR AUTHOR'S ORGANIZ ATION 08/08/2023 [facility] DATE CREATED AUTHOR AUTHOR'S ORGANIZ ATION 08/16/2023 [facility] Patient Care team informatio n (unrecognized section [...] BE BASED ON THE PRIMARY CLINICAL RECORDS. [facility] [employer] [facility]. provides no warranty or guarantee of the accuracy or completeness of information in this document.
--- OUTSIDE RECORDS SUMMARY | 2023-08-20 09:22 | XMS_ITS | CCD ---
Author Name Unknown Address [id number] [place] [address] Organization [facility] Care Team Providers Care Supermarket Manager Name Role Phone Astrid Baker Unavailable CAYETANO, DR CRUM Consulting Unavailable CAYETANO, DR CRUM Attending Unavailable CAYETANO, DR CRUM Admitting Unavailable HEMEYER ., DR MCKINNEY Primary Care Unavailable HEMEYER ., DR MCKINNEY Consulting Unavailable HEMEYER ., DR MCKINNEY Admitting Unavailable HEMEYER ., DR MCKINNEY Attending Unavailable HEMEYER ., DR MCKINNEY Primary Care Unavailable CAYETANO, DR CRUM Attending Unavailable CAYETANO, DR CRUM Admitting Unavailable HEMEYER ., DR MCKINNEY Primary Care Unavailable CAYETANO, DR CRUM Consulting Unavailable KIRBYYER ., DR MCKINNEY Primary Care Unavailable CAYETANO, DR CRUM Consulting Unavailable CAYETANO, DR CRUM Attending Unavailable HEMEYER ., DR MCKINNEY Referring Unavailable CAYETANO, DR CRUM Admitting Unavailable HEMEYER ., DR MCKINNEY Primary Care Unavailable HEMEYER ., DR MCKINNEY Consulting Unavailable HEMEYER ., DR MCKINNEY Attending Unavailable HEMEYER ., DR MCKINNEY Admitting Unavailable CAYETANO, DR CRUM Attending Unavailable CAYETANO, DR CRUM Admdiallo Unavailable LUCAS, DR BLANCA Haskins Consulting Unavailable HEMEYER ., DR MCKINNEY Primary Care Unavailable CAYETANO, DR CRUM Consulting Unavailable CAYETANO, DR CRUM Consulting Unavailable CAYETANO, DR CRUM Attending Unavailable CAYETANO, DR CRUM Admitting Unavailable HEMEYER ., DR MCKINNEY Primary Care Unavailable CAYETANO, DR CRUM Consulting Unavailable CAYETANO, [...] HEMEYER ., DR MCKINNEY Primary Care Unavailable JAYME PEREZ Primary Care Physician Unavail able MD aJyme Perez Primary Care Provider [phone] MD Williams Shepherd Attending Provider [phone] Williams Shepherd Admitting Unavailable Williams Shepherd Attending Unavailable Jayme Perez Primary Care Unavailable Williams Shepherd Attending Unavailable HemeJayme england Primary Care Unavailable Williams Shepherd Admitting Unavailable Lou Glover Unavailable FELICIA FARMER Attending Unavailable JAYME PEREZ Attending Unavailable HEMEJAYME ENGLAND Attending Unavailable FELICIA FARMER Attending Unavailable FELICIA FARMER Attending Unavailable FELICIA FARMER Attending Unavailable Williams SHEPHERD Attending Unavailable Williams SHEPHERD Attending Unavailable Renato SANTACRUZ Attending Unavailable COOKWilliams Attending Unavailable COOKWilliams P Admitting Unavailable COOKWilliams Attending Unavailable Renato SANTACRUZ Attending Unavailable COOKWilliams Attending Unavailable Williams SHEPHERD Attending Unavailable Hemeyer Jayme AGUIAR Primary Care Provider [phone] Jayme Perez MD Unavailable Allergies Allergy Classification Reported Allergen(s) Allergy Type Date of Onset Reaction(s) Facility (9 sources) Ciprofloxacin; 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: [ciprofloxacin] Drug Allergy 02-19-20 anaphylaxis, Unknown (qualifier value) [facility] (1 source) sulfaSALAzine Drug Allergy rash [facility] Other (1 source) Ciprofloxacin Drug Allergy 03-30-20 13 [facility] (2 sources) Ketorolac; 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: [Toradol] Drug Allergy 03-30-20 13 [facility] (2 sources) metroNIDAZOLE; 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: [MetroGel] Drug Allergy 03-30-20 13 [facility] (1 source) NSAIDs Drug allergy (disorder) 03-30-20 13 [facility] (2 sources) pioglitazone; 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: [Actos] Drug Allergy 03-30-20 13 [facility] (1 source) Sulfonamides (Antibiotic) Drug allergy (disorder) 03-30-20 13 [facility] (8 sources) Ketorolac; 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: [ketorolac] Drug Allergy 03-26-20 Unknown (qualifier value), Nausea (finding) [facility] Comment on above: Severe (8 sources) Latex; 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: [latex] Drug allergy 01-07-20 Blister of skin AND/OR mucosa (finding) [facility] (6 sources) Non-steroidal anti-inflammatory agent; 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: [NSAIDs] Drug allergy 02-19-20 Unknown (qualifier value) [facility] (8 sources) pioglitazone; 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: [pioglitazone] Drug Allergy 01-07-20 23 Unknown (qualifier value) [facility] (4 sources) Sulfonamides (Antibiotic); 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: [sulfa drugs] Drug allergy Unknown (qualifier value) [facility] (5 sources) metroNIDAZOLE; 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: [metronidazole] Drug Allergy 02-19-20 Redness of Skin [facility] (2 sources) Sulfonamides (Antibiotic); 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: [Sulfa (Sulfonamide Antibiotics)] Allergy to substance 03-26-20 Rash [facility] (2 sources) NSAIDS (Non-Steroidal Anti-Inflamma; 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: [NSAIDS (Non-Steroidal Anti-Inflamma] Allergy to substance 03-26-20 Anaphylaxis [facility] (1 source) Ciprofloxacin Drug Allergy 03-26-20 [facility] (1 source) Ketorolac Drug Allergy 03-26-20 [facility] (1 source) pioglitazone Drug Allergy 03-26-20 [facility] Repository (1 source) Non-steroidal anti-inflammatory agent Drug allergy rash [facility] Other (3 sources) Substance with sulfonamide structure and antibacterial mechanism of action (substance) Drug allergy 02-19-20 [facility] Other (2 sources) Ketorolac Allergy to substance 01-07-20 Nausea Only [facility] (2 sources) Hydrocodone Bit-Homatrop Mbr Propensity to adverse reactions 08-07-19 Dizziness [facility] (2 sources) Medical Adhesive Remover Drug Allergy 02-19-20 [facility] Medications Current Medications Medication Drug Class(es) Dates Sig (Normalized) Sig (Original) acetaminophen 325 mg oral tablet (5 sources) Start: 03-26-2023 Acetaminophen (Tylenol) 325 mg Tablet Active 1000 MG PO Twice daily March 25, 2023 11:00pm Start: 02-03-2023 take 1 mg by mouth e very six hours Tylenol Extra Strength 500 mg oral tablet mg tab(s), Oral, q6hr Start Date: 02/03/23 Status: Ordered take 1 tablet by valdo th every six hours as needed acetaminophen (Tylenol) 325 MG tablet Take 325 mg by mouth every 6 (six) hours if needed. 2 tables as needed orally every 6 hours 0 Active acetaminophen 325 mg / oxyCODONE hydrochloride 5 mg oral tablet (1 source) Opioid Agonist Start: 08-13-2023 take 1 tablet by mouth every six hours Percocet 5 mg-325 mg oral tablet 1 tab(s), Oral, q6hr, Refill(s) 0 Start Date: 08/13/23 Status: Ordered [id number] 200 actuat albuterol 0.09 mg/actuat metered dose inhaler (4 sources) beta2-Adrenergi c Agonist Start: 07-16-2023 End: 07-15-2024 albuterol HFA 90 mcg/act inhaler Indications: Chronic obstructive pulmonary disease with acute exacerbation (CMS/HCC) Inhale 2 puffs in the morning and 2 puffs at noon and 2 puffs in the evening and 2 puffs before bedtime. 18 g 0 07/16/2023 07/15/2024 Active Start: 05-21-2021 Start: 05-21-2021 take 2 puff(s) [...] Ordered calcium citrate 950 mg oral tablet (6 sources) Start: 03-26-2023 take 200 mg by mouth three times daily Calcium Citrate Active 200 MG PO Three times daily March 25, 2023 11:00pm Start: 08-17-2019 take 250 mg by mouth three times daily calcium citrate 250 mg, Oral, TID, Refills(s) 0 Start Date: 08/17/19 Status: Ordered Start: 08-17-2019 calcium citrat e Oral, BID, Refills(s) 0 Start Date: 08/17/19 Status: Ordered take 1 tablet by valdo th three times daily in the morning calcium citrate 1040 MG tablet Take 250 mg by mouth in the morning and 250 mg in the evening and 250 mg before bedtime. 1 tablet orally three times a day. 0 Active cephalexin 500 mg oral capsule (1 source) [...] 11:00pm cinnamon bark 500 mg oral capsule (3 sources) Start: 03-26-2023 take 1 capsule by mouth [...] Date: 09/19/20 Status: Ordered Cyanocobalamin-Liver Extract (Vitamin U77-Gqgtr) Tablet (1 source) Start: 03-26-2023 take 1 tablet by mouth once daily Cyanocobalamin-Liver Extract (Vitamin J68-Pnmer) Tablet Active 1 TAB PO every day at noon March 25, 2023 11:00pm dextromethorphan hydrobromide 1.5 mg/ml / pyrilamine maleate 1.5 mg/ml oral solution (1 source) Uncompetitive V-hupacc-U-aspar muñoz Receptor Antagonist, Sigma-1 Agonist Start: 07-25-2023 take 10 mL by mouth every eight hours [place] DM 7.5-7.5 MG/5ML 10 mL Orally every 8 hours for 5 days Jul, Active esomeprazole 20 mg oral tablet (6 sources) Proton Pump Inhibitor Start: 08-17-2019 take 20 mg by mouth once daily Esomeprazole Magnesium Active 20 MG PO every day at noon March 25, 2023 11:00pm Start: 08-17-2019 Nexium Oral, D aily, Refills(s) 0 Start Date: 08/17/19 Status: Ordered take 1 capsule by [facility] once daily esomeprazole (NexIUM) [address] capsule Take 20 mg by mouth 1 (one) time each day. 1 capsule orally once a day 0 Active ferrous sulfate 134 mg oral tablet (1 [...] 25, 2023 11:00pm may 13 Start: 08-20-2019 Simbettyi Jarvisa m g/kg, IV, q4wk, Refills(s) 0 Start Date: 08/20/19 Status: Ordered Insulin Glargine (2 sources) Insulin Analog Lantus Active methotrexate 2.5 mg/ml oral solution (6 sources) [...] 08/17/19 Status: Ordered Methotrexate Sod ium Active Misc Medication (3 sources) Start: 09-19-2020 [facility] Medicatio n See Instructions, Oral Start Date: 09/19/20 Status: Ordered Start: 09-19-2020 [facility] Medicatio n ironchlate Start Date: 09/19/20 Status: [...] Date: 08/17/19 Status: Ordered predniSONE Not-T aking/PRN Spacer/Aero-Holding Chambers ([employer] Leonor Spacer Adult) misc (2 sources) Start: 07-16-2023 Spacer/Aero-Holding Chambers ([employer] Leonor Spacer Adult) [facility] Indications: Chronic obstructive pulmonary disease with acute exacerbation (CMS/HCC) 2 puffs 4 (four) times a day as needed (sob and cough) 1 each 0 07/16/2023 Active tamsulosin hydrochloride 0.4 mg oral capsule (1 source) alpha-Adrene rgic Sergey Start: 08-13-2023 End: 08-20-2023 take 1 mg by mouth once daily tamsulosin 0.4 mg Cap mg cap(s), Oral, Daily, X 7 day(s), Refills(s) 0 Start Date: 08/13/23 Stop Date: 08/20/23 Status: Ordered vitamin B12 (5 sources) Vitamin B12 Start: 08-17-2019 take 3000 mg by mouth once daily Vitamin B12 3,000 mg, Oral, Daily, Refills(s) 0 Start Date: 08/17/19 Status: Ordered Start: 08-17-2019 Vitamin B12 Re fills(s) 0 Start Date: 08/17/19 Status: Ordered take 1 tablet under the tongue once daily Cyanocobalamin (Vitamin B12) [address] 3,000 mcg under the tongue 1 (one) time each day. 0 Active Vitamin D3 (3 sources) Start: 08-17-2019 Vitamin D3 1,0 00 unit(s), Daily, Refills(s) 0 Start Date: 08/17/19 Status: Ordered Start: 08-17-2019 Vitamin D3 Alexandra ly, Refills(s) 0 Start Date: 08/17/19 Status: Ordered warfarin sodium 3 mg oral tablet (8 sources) Vitamin K Antagonist Start: 02-03-2023 End: 08-18-2023 take 1 tablet by mouth in the evening, then take 1 tablet by mouth once daily in the evening warfarin (Coumadin) 3 MG tablet Indications: 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 (CMS/HCC) Take 1 tablet (3 mg) by mouth in the evening 1 tablet orally once a day, in the evening 30 tablet 0 08/07/2023 08/18/2023 Discontinued (Dose adjustment) Start: 02-03-2023 warfarin Oral, Daily Start Date: 02/03/23 Status: Ordered Start: 10-02-2022 End: 08-07-2023 take 4 mg by mouth once daily at bedtime Warfarin Active 4 MG PO Daily at bedtime March 25, 2023 11:00pm Zinc Sulfate-Vitamin C (Vitamin C Plus Zinc) 200-100 mg Tablet (1 source) Start: 03-26-2023 take 1 tablet by mouth once daily Zinc Sulfate-Vitamin C (Vitamin C Plus Zinc) 200-100 mg Tablet Active 1 TAB PO every day at noon March 25, 2023 11:00pm Completed/Discontinued Medications Medication Drug Class(es) Dates Sig (Normalized) Sig (Original) acarbose 100 mg oral tablet (10 sources) alpha-Glucosidase Inhibitor Start: 08-17-2019 End: 02-03-2024 acarbose (Precose) 100 MG tablet Indications: Type 2 diabetes mellitus with stage 3a chronic kidney disease, without long-term current use of insulin (HCC) (CMS/HCC) Take 1 tablet (100 mg) by mouth in the morning and 1 tablet (100 mg) at noon and 1 tablet (100 mg) in the evening. Take with meals. 270 tablet 1 02/06/2023 08/07/2023 Discontinued (Reorder) Start: 08-17-2019 acarbose Oral, TID, Refills(s) 0 Start Date: 08/17/19 Status: Ordered Acarbose Active azithromycin 250 mg oral tablet (2 sources) Macrolide Antimicrobial Start: 05-21-2021 Azithromycin 250 MG 2 tablets on the first day, then 1 tablet daily for 4 days Orally Once a day for 5 day(s) May, Not-Taking/PRN Start: 05-21-2021 metFORMIN hydrochloride 1000 mg oral tablet (10 sources) Biguanide Start: 08-17-2019 End: 02-03-2024 take 1 tablet by mouth in the morning metFORMIN (Glucophage) 1000 MG tablet Indications: Type 2 diabetes mellitus with stage 3a chronic kidney disease, without long-term current use of insulin (HCC) (CMS/HCC) Take 1 tablet (1,000 mg) by mouth in the morning and 1 tablet (1,000 mg) in the evening. Take with meals. 180 tablet 1 02/06/2023 08/07/2023 Discontinued (Reorder) Start: 08-17-2019 metformin Oral , Refills(s) 0 Start Date: 08/17/19 Status: Ordered metFORMIN HCl Ac tive methylPREDNISolone (3 sources) Corticosteroid Start: 07-25-2023 End: 08-07-2023 methylPREDNISolone (Medrol Dospak) 4 MG tablets Start: 07-25-2023 methylPREDNISo lone 4 MG as directed Orally for 6 Jul, Active Problems Active Problems Problem Classification Problem Date Documented Date Episodic/Chronic Abdominal pain (5 sources) Abdominal pain; 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: [Unspecified abdominal pain] Onset: 08-13-2023 09-21-2019 Episodic Anxiety disorders (3 sources) Anxiety 08-17-2019 Chronic Calculus of urinary tract (8 sources) Kidney stone; 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: [Calculus of kidney] Onset: 03-20-2023 Episodic Cancer of uterus (3 sources) History of malignant neoplasm of uterine body 08-17-2019 Episodic Cardiac dysrhythmias (10 sources) 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; 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: [Atrial fibrillation] Onset: 10-14-2022 Chronic Cataract (6 sources) Bilateral age-related nuclear cataracts; 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: [Age-related nuclear cataract, bilateral] Onset: 05-19-2023 05-19-2023 Chronic Chronic kidney disease (4 sources) Chronic kidney disease stage 3A ; 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: [Stage 3a chronic kidney disease (HCC) (CMS/HCC)] Onset: 12-12-2022 07-30-2023 Chronic Congestive heart failure; nonhypertensive (5 sources) Chronic diastolic (congestive) heart failure; 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: [Chronic diastolic heart failure] Onset: 09-05-2022 08-18-2023 Chronic Diabetes mellitus with complications (8 sources) Type 2 diabetes mellitus with diabetic chronic kidney disease; 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: [Type 2 diabetes mellitus] Onset: 08-09-2022 Chronic Diverticulosis and diverticulitis (2 sources) 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; 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: [Diverticulosis of large intestine without perforation or abscess without bleeding] Onset: 12-12-2022 12-12-2022 Chronic Esophageal disorders (4 sources) Gastroesophageal reflux disease without esophagitis; 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: [Gastro-esophageal reflux disease without esophagitis] Onset: 12-12-2022 08-18-2023 Chronic Genitourinary symptoms and ill-defined conditions (10 sources) Increased frequency of urination; 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: [Nocturia] Onset: 12-12-2022 09-19-2020 Episodic Glaucoma (2 sources) Preglaucoma, unspecified, bilateral; 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: [Preglaucoma, unspecified] Onset: 05-19-2023 05-19-2023 Chronic Heart valve disorders (3 sources) Nonrheumatic aortic (valve) stenosis; 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: [Aortic valve disorders] Onset: 09-05-2022 12-12-2022 Chronic Immunity disorders (2 sources) Immunosuppression; 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: [Immunodeficiency, unspecified] Onset: 12-12-2022 12-12-2022 Chronic Menopausal disorders (2 sources) Disorder associated with menstruation AND/OR menopause; 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: [Menopausal and female climacteric states] Onset: 12-12-2022 12-12-2022 Chronic Mood disorders (3 sources) Depressive disorder 08-17-2019 Chronic Nutritional deficiencies (2 sources) Vitamin D deficiency; 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: [Vitamin D deficiency, unspecified] Onset: 12-12-2022 12-12-2022 Chronic Osteoporosis (2 sources) Osteoporosis; 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: [Age-related osteoporosis without current pathological fracture] Onset: 12-12-2022 12-12-2022 Chronic Other aftercare (1 source) 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; 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: [[facility]PC CURRNT USE ANTICOAGULANTS] Onset: 12-11-2022 Episodic Other aftercare (5 sources) Encounter for therapeutic drug level monitoring; 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: [ENC THERAPEUTC DRUG LEVL MONITORING] Onset: 10-18-2022 Episodic Other aftercare (1 source) Other intermediate card tender (current) drug therapy; 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: [OTH FPC CURRENT DRUG THERAPY] Onset: 10-31-2022 Episodic Other aftercare (5 sources) Long-term current use of anticoagulant; 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: [long-term (current) use of anticoagulants] Onset: 07-21-2023 Episodic Other and ill-defined heart disease (4 sources) Cardiomegaly; 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: [CARDIOMEGALY] Onset: 09-02-2022 Chronic Other and ill-defined heart disease (2 sources) Ventricular hypertrophy ; 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: [Cardiomegaly] Onset: 12-12-2022 12-12-2022 Chronic Other diseases of kidney and ureters (1 source) Urinary tract obstruction; 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: [Hydronephrosis with renal and ureteral calculous obstruction] Onset: 08-13-2023 Episodic Other inflammatory condition of skin (5 sources) Other psoriatic arthropathy; 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: [OTHER PSORIATIC ARTHROPATHY] Onset: 09-25-2022 Chronic Other inflammatory condition of skin (4 sources) Psoriatic arthritis; Translations: [Arthropathic psoriasis, unspecified] Onset: 12-12-2022 08-18-2023 Chronic Other nutritional; endocrine; and metabolic disorders (3 sources) Body mass index 25-29 - overweight 09-18-2021 Episodic Residual codes; unclassified (3 sources) H/O: anticoagulant therapy 09-21-2019 Episodic Residual codes; unclassified (4 sources) Body mass index 20-24 - normal; Translations: [Body mass index (BMI) 24.0-24.9, adult] Onset: 07-30-2023 07-30-2023 Episodic Screening and history of mental health and substance abuse codes (7 sources) Ex-smoker; Translations: [Personal history of nicotine dependence] Onset: 03-27-2017 Resolved: 08-07-2023 09-21-2019 Episodic Spondylosis; intervertebral disc disorders; other back problems (4 sources) Degeneration of lumbar intervertebral disc; Translations: [Other intervertebral disc degeneration, lumbar region] Onset: 12-12-2022 12-12-2022 Chronic Unclassified (3 sources) Drug therapy finding 08-20-2019 Unclassified (1 source) Encounter for preprocedural laboratory examination; Translations: [Encounter for preprocedural laboratory examination] Onset: 03-26-2023 Unclassified (1 source) Obstructive hydronephrosis 08-13-2023 Viral infection (1 source) Other specified viral diseases Episodic Past or Other Problems Problem Classification Problem Date Documented Da te Episodic/Chronic Diabetes mellitus without complication (5 sources) Diabetes mellitus; Translations: [Type 1 diabetes mellitus without complication] Onset: 05-19-2023 Resolved: 05-22-2023 08-17-2019 Chronic Heart valve disorders (6 sources) Cardiac murmur, unspecified; Translations: [Heart murmur] Onset: 09-05-2022 08-17-2019 Episodic Immunizations and screening for infectious disease (1 source) Contact with and (suspected) exposure to other viral communicable diseases Onset: 05-21-2021 Resolved: 05-21-2021 Episodic Inflammation; infection of eye (except that caused by tuberculosis or sexually transmitteddisease) (2 sources) Blepharitis of upper and lower eyelids of bilateral eyes; Translations: [Unspecified blepharitis right eye, upper and lower eyelids] Onset: 05-19-2023 05-19-2023 Episodic Mood disorders (2 sources) Mood disorders Onset: 05-22-2023 05-22-2023 Nutritional deficiencies (2 sources) Iron deficiency; Translations: [Iron deficiency] Onset: 12-12-2022 12-12-2022 Episodic Other aftercare (1 source) long-term (current) use of oral hypoglycemic drugs; Translations: [[facility] USE ORAL HYPOGLYCEMIC DX] Onset: 08-12-2022 Episodic Other aftercare (1 source) 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 insulin; Translations: [TIME BUYER CURRENT USE OF INSULIN] Onset: 02-13-2022 Episodic Other bone disease and musculoskeletal deformities (2 sources) Osteopenia; Translations: [Other specified disorders of bone density and structure, unspecified site] Onset: 12-12-2022 12-12-2022 Episodic Other connective tissue disease (4 sources) Pain in left foot; Translations: [PAIN IN LEFT FOOT] Onset: 02-20-2022 Episodic Other eye disorders (2 sources) Dry eyes; Translations: [Dry eye syndrome of bilateral lacrimal glands] Onset: 05-19-2023 05-19-2023 Episodic Other nutritional; endocrine; and metabolic disorders (2 sources) Overweight; Translations: [Overweight] Onset: 12-12-2022 Resolved: 07-30-2023 07-30-2023 Episodic Pneumonia (except that caused by tuberculosis or sexually transmitted disease) (1 source) Pneumonia, unspecified organism Onset: 05-21-2021 Resolved: 05-21-2021 Episodic Residual codes; unclassified (2 sources) Sleep disorder; Translations: [Sleep disorder, unspecified] Onset: 12-12-2022 12-12-2022 Episodic Unclassified (1 source) Unclassified (1 source) Contact with and (suspected) exposure to covid-19 Z20.822 Viral infection (1 source) COVID-19 Onset: 05-21-2021 Resolved: 05-21-2021 Results Test Name Value Interpretation Reference Range Facil ity Consent for Procedure/Surger yon 08-15-2023 Consent for Procedure/Surgery [id number]#[address] [facility] ED Note-Physicianon 08-15-19 ED Note-Physician [id number]#1. 00TIFF [facility] Lab Reportson 08-15-2023 Lab Reports [id number]#1. 00TI[address] [facility] Lab Reports [id number]#[address] [facility] Lab Reports [id number]#[address] [facility] Operative Reporton Operative Report [id number]#[address] [facility] RAD - CT Reporton 08-15-2023 RAD - CT Report [id number]#1. 00TI[address] [facility] Ambulatory Visit Summaryon 0 08-13-2023 Ambulatory [...] AGUIAR, Williams Venegas Where: [facility] Normal [address] [place] [address]- \.br\ You Need to Schedule the Following Appointments\.br \ Follow Up with ANGELITO AGUIAR, Renato Arzola, URL When: \.br\ Comments:\.br\ sched ureteroscopy\.br \ f/u w/ [facility] scheduled 10/14/23\.br\ Where:\.br\ [facility] [address]br\ [place] [address]-\.br\ [id number]\.br\ Medications\.br\ What How Much When Instructions\.br \ [...] murmur\.br\ History of uterine cancer\.br\ Hx of intermediate card tender use of blood thinners\.br\ Kidney stones\.br\ Nocturia\.br\ [...] including vitamins, herbs, eye drops, creams, and rhel-wny-jxoznrr medicines.\.br\ ? \.br\ Any problems you or [...] you to take them.\.br\ ? \.br\ Taking ymmd-nzn-ipyqhjx medicines, vitamins, herbs, and supplements.\.br \ Eating [...] You may also have tests, such [facility] Patient Educationon 08-13-19 Patient Education Nephrology Laser [...] including vitamins, herbs, eye drops, creams, and scec-jsa-qtclfjl medicines. ? Any problems you or family [...] tells you to take them. ? Taking dvmp-ibk-sijokyd medicines, vitamins, herbs, and supplements. Eating and [...] the pieces (more content not included)... Normal [facility] Urology Office/Clinic Noteon 08-13-2023 Urology Office/Clinic Note Chief Complaint Patient is here for follow up to [facility] ER HPI Staff Patient is here for f/u to [facility] ER on 08/12/23 due to distal right [...] Hydronephrosis with renal and ureteral calculous obstruction) [facility] ER visit 08/12/23 due to R flank [...] abdominal pain) See #1 4. Anticoagulated (Z79.01: long-term (current) use of anticoagulants) On warfarin 3mg for a-fib. States she did not take this last night. Advised pt not to take her dose today either. Follow-up With When Contact Information Renato SANTACRUZ MD, L [facility] [address], [place] [address]- [phone] Additional Instructions: sched ureteroscopy f/u w/ [facility]PC scheduled 10/14/23 Patient Education Laser Therapy for Kidney Stones Amy Snell, personally scribed for Dr. Santacruz on 08/13/2023 11:35:03. . Documentation recorded by the scribAmy albarran, accurately reflects the services(s) I performed and decisions made by me. Authenticated by Dr. Santacruz on 08/13/2023 11:37:02. Problem List/Past Medical History [place]oi (more content not included)... Normal [facility] Comment on above: Result Comment: Elec tronically Signed By: Renato SANTACRUZ MD\.br\Date and Time Signed: 08/13/23 11:37 EST\.br\Electronically Co-Signed By: Amy Gallagher\.br\Date and Time Co-Signed: 08/13/23 11:35 EST COVID/FLU/RSV RT-PCRon 07-25 SARS-CoV-2 (COVID-19) RNA TREASURE+probe Ql (Unsp spec) Negative [facility] Food on the Table Other COVID/FLU/RSV RT-PCR Negative [facility] Food on the Table Other COVID/FLU/RSV RT-PCR Positive [facility] Food on the Table Other Calculus Analysison 03-27-20 23 Calcium oxalate dihydrate Infrared spectroscopy (Stone) [Mass fraction] 100 % Invalid Interpretation Code [facility] Comment on above: Performed By: #### 1 [id number] ####[facility] [address] [place] [address] Color (Stone) Roper Invalid Interpretation Code [facility] Comment on above: Performed By: #### 1 [id number] ####[address] [address] Composition Comment Invalid Interpretation Code [facility] Comment on above: Result Comment: Perc entage (Represents the % composition) Performed By: #### 1 [id number] ####[facility] [address] [place] [address] Disclaimer: Comment Invalid Interpretation Code [facility] Comment on above: Result Comment: This test was developed and its performance characteristics determined by [facility]. It has not been cleared or approved by the Food and Drug Administration. Performed at: [address] [id number] PhD Silvestre Esquivel Performed By: #### 1 [id number] ####[facility] [address] [place] [address] Laboratory comment Noam (Report) Comment Invalid Interpretation Code [facility] Comment on above: Result Comment: Coco goode questions regarding Calculi Analysis contact [facility] at: [phone]. Performed By: #### 1 [id number] ####[facility] [address] [place] [address] Please Note: Comment Invalid Interpretation Code [facility] Comment on above: Result Comment: Calc javier report will follow via computer, mail or post office manager delivery. Performed By: #### 1 [id number] ####[facility] [address] [place] [address] Size (Stone) [Entitic vol] 6x[address] [facility] Comment on above: Result Comment: Sing le piece received. Performed By: #### 1 [id number] ####[address] [address] Specimen source subject Nom Comment Invalid Interpretation Code [facility] Comment on above: Result Comment: Not provided Performed By: #### 1 [id number] ####[address] [address] Stone Photo Comment Invalid Interpretation Code [facility] Comment on above: Result Comment: Phot ograph will follow under a separate cover Performed By: #### 1 [id number] ####[address] [place] [address] Weight (Stone) 49 [address] Invalid Interpret[address] Code [facility] Comment on above: Performed By: #### 1 [id number] ####[address] [place] [address] Lab Reportson 03-27-2023 Lab Reports [id number]. 00CD:[address] [facility] Activated partial thrombopla stin time (aPTT) in platelet poor plasma by coagulation aOrdered By: Williams Shepherd on 03-26-2023 aPTT Coag (PPP) [Time] 35.9 s 25.1-36.5 [facility] Comment on above: A hematocrit value g reater than 55% may lead to inaccurate results in coagulation testing. Patients having hematocrit values >55% require a special collection tube for coagulation studies. Please contact the laboratory at [phone] for redraw instructions. Basic Metabolic Panelon 03-14 Anion gap [Moles/Vol] 13.0 mmol/L Normal 6.0-15.0 [facility] Comment on above: Performed By: #### P T, BMP, CBC, PTT #### [facility] [address] [place] [address] [place] Calcium [Mass/Vol] 10.0 mg/dL Normal 8.6-10.3 [facility] Comment on above: Result Comment: PERF ORMED BY: [place] [address] PATHOLOGIST PLASTICS TOOLING ENGINEER BERNIE GRAYSON M.D. Performed By: #### P T, BMP, CBC, PTT #### [facility] [address] [place] [address] [place] Chloride [Moles/Vol] 104 mmol/L Normal 98-107 [facility] Comment on above: Performed By: #### P T, BMP, CBC, PTT #### [facility] [address] CO2 [Moles/Vol] 30.0 mmol/L Normal 21.0-31.0 [facility] Comment on above: Performed By: #### P T, BMP, CBC, PTT #### [place] [address] [place] Creatinine [Mass/Vol] 0.85 mg/dL Normal 0.60-1.20 [facility] Comment on above: Performed By: #### P T, BMP, CBC, PTT #### [facility] [address] [place] [address] [place] GFR/1.73 sq M.predicted MDRD (S/P/Bld) [Vol rate/Area] mL/min/{1.73_m2} Normal [facility] Comment on above: Performed By: #### P T, BMP, CBC, PTT #### [facility] [address] [place] [address] [place] Glucose [Mass/Vol] 111 mg/dL High 70-100 [facility] Comment on above: Result Comment: [place] Glucose Reference Range is dependent on time and content of last meal. Glucose of more than 200 mg/dL in a nonstressed, ambulatory subject supports the diagnosis of Diabetes Mellitus. ADA recommended reference range Performed By: #### P T, BMP, CBC, PTT #### [facility] [address] [place] [address] [place] Potassium [Moles/Vol] 5.0 mmol/L Normal 3.5-5.1 [facility] Comment on above: Performed By: #### P T, BMP, CBC, PTT #### [facility] [address] [place] [address] [place] Sodium [Moles/Vol] 142 mmol/L Normal 136-145 [facility] Comment on above: Performed By: #### P T, BMP, CBC, PTT #### [facility] [address] [place] [address] [place] Urea nitrogen [Mass/Vol] 12 mg/dL Normal 7-25 [facility] Comment on above: Performed By: #### P T, BMP, CBC, PTT #### [facility] [address] [place] [address] [place] Basophils Auto (Bld) [#/Vol] Ordered By: Williams Shepherd on 03-26-2023 Basophils (Bld) [#/Vol] 0.0 10*3/uL 0.0-0.2 [facility] Basophils/100 WBC Auto (Bld) Ordered By: Williams Shepherd on 03-26-2023 Basophils/100 WBC (Bld) 0.8 % . [facility] Calcium [Mass/volume] in Ser um or PlasmaOrdered By: Williams Shepherd on 03-26-2023 Calcium [Mass/Vol] 10.0 mg/dL 8.6-10.3 [facility] Carbon dioxide, total [Moles /volume] in Serum or PlasmaOrdered By: Williams Shepherd on 03-26-2023 CO2 [Moles/Vol] 30.0 mmol/L 21.0-31.0 [facility] Chloride [Moles/volume] in S fartun or PlasmaOrdered By: Williams Shepherd on 03-26-2023 Chloride [Moles/Vol] 104 mmol/L 98-107 [facility] Complete Blood Count Auto Di ffon 03-26-2023 Basophils (Bld) [#/Vol] 0.0 10*3/uL Normal 0.0-0.2 [facility] Comment on above: Result Comment: PERF ORMED BY: [place] [address] PATHOLOGIST PLASTICS TOOLING ENGINEER BERNIE GRAYSON M.D. Performed By: #### P T, BMP, CBC, PTT #### [facility] [address] [place] [address] Basophils/100 WBC (Bld) 0.8 % Normal . [facility] Comment on above: Performed By: #### P T, BMP, CBC, PTT #### [facility] [address] [place] [address] Eosinophils (Bld) [#/Vol] 0.3 10*3/uL Normal 0.0-0.45 [facility] Comment on above: Performed By: #### P T, BMP, CBC, PTT #### [address] Eosinophils/100 WBC (Bld) 4.3 % Normal . [facility] Comment on above: Performed By: #### P T, BMP, CBC, PTT #### [address] Erythrocyte distribution width (RBC) [Ratio] 14.8 % Normal 11.9-15.3 [facility] Comment on above: Performed By: #### P T, BMP, CBC, PTT #### [address] Hematocrit (Bld) [Volume fraction] 40.3 % Normal 34.0-46.4 [facility] Comment on above: Performed By: #### P T, BMP, CBC, PTT #### [place] [address] [place] Hemoglobin (Bld) [Mass/Vol] 13.3 g/dL Normal 11.8-15.4 [facility] Comment on above: Performed By: #### P T, BMP, CBC, PTT #### [address] Lymphocytes (Bld) [#/Vol] 2.2 10*3/uL Normal 1.00-4.8 [facility] Comment on above: Performed By: #### P T, BMP, CBC, PTT #### [address] Lymphocytes/100 WBC (Bld) 36.9 % Normal . [facility] Comment on above: Performed By: #### P T, BMP, CBC, PTT #### [address] MCH (RBC) [Entitic mass] 31.1 pg Normal 24.7-34.3 [facility] Comment on above: Performed By: #### P T, BMP, CBC, PTT #### [address] MCV (RBC) [Entitic vol] 94.4 fL Normal 80-100 [facility] Comment on above: Performed By: #### P T, BMP, CBC, PTT #### [address] Mean Corpuscular HGB Conc 32.9 g/dL Normal 32.0-35.0 [facility] Comment on above: Performed By: #### P T, BMP, CBC, PTT #### [address] Monocytes (Bld) [#/Vol] 0.5 10*3/uL Normal 0.0-0.8 [facility] Comment on above: Performed By: #### P T, BMP, CBC, PTT #### [place] [address] [place] Monocytes/100 WBC (Bld) 7.8 % Normal . [facility] Comment on above: Performed By: #### P T, BMP, CBC, PTT #### [place] [address] [place] Neutrophils (Bld) [#/Vol] 3.0 10*3/uL Normal 1.8-7.7 [facility] Comment on above: Performed By: #### P T, BMP, CBC, PTT #### [place] [address] [place] Neutrophils/100 WBC (Bld) 50.2 % Normal . [facility] Comment on above: Performed By: #### P T, BMP, CBC, PTT #### [facility] [address] [place] [address] NRBC% 0.3 /100{WBC} Normal 0-0.5 [facility] Comment on above: Performed By: #### P T, BMP, CBC, PTT #### [facility] [address] [place] [address] Platelet mean volume (Bld) [Entitic vol] 7.1 fL Normal 6.3-10.7 [facility] Comment on above: Performed By: #### P T, BMP, CBC, PTT #### [address] Platelets (Bld) [#/Vol] 363 10*3/uL Normal 150-450 [facility] Comment on above: Performed By: #### P T, BMP, CBC, PTT #### [address] RBC (Bld) [#/Vol] 4.27 10*6/uL Normal 3.60-5.00 [facility] Comment on above: Performed By: #### P T, BMP, CBC, PTT #### [address] WBC (Bld) [#/Vol] 5.9 10*3/uL Normal 3.8-11.6 [facility] Comment on above: Performed By: #### P T, BMP, CBC, PTT #### [address] Creatinine [Mass/volume] in Serum or PlasmaOrdered By: Williams Shepherd on 03-26-2023 Creatinine [Mass/Vol] 0.85 mg/dL 0.60-1.20 [facility] ECG 12 lead ECGon 03-26-2023 ECG 12 lead ECG [facility] [place] [address] [place] [address] Electrocardiograph Report Signed Patient: Wilda Sen MR#: [id number] 8 : 1945 Acct:[id number] Age/Sex: 77 / F ADM Date: 03/26/23 Loc: PS Room: Type: [facility] Attending Dr: Williams Shepherd MD Ordering [...] Electronically Signed By:MARU WHITEHEAD DO Transcribed By: MUS Signed By Maru Whitehead DO 03/26 190 Normal [facility] Eosinophils Auto (Bld) [#/Vo l]Ordered By: Williams Shepherd on 03-26-2023 Eosinophils (Bld) [#/Vol] 0.3 10*3/uL 0.0-0.45 [facility] Eosinophils/100 WBC Auto (Bl d)Ordered By: Williams Shepherd on 03-26-2023 Eosinophils/100 WBC (Bld) 4.3 % . [facility] Erythrocyte distribution wid th Auto (RBC) [Ratio]Ordered By: Williams Shepherd on 03-26-2023 Erythrocyte distribution width (RBC) [Ratio] 14.8 % 11.9-15.3 [facility] Glucose [Mass/volume] in Ser um or PlasmaOrdered By: Williams Shepherd on 03-26-2023 Glucose [Mass/Vol] 111 mg/dL 70-100 [facility] Comment on above: ADA recommended refe rence rangeRandom Glucose Reference Range is dependent on time and content of last meal. Glucose of more than 200 mg/dL in a nonstressed, ambulatory subject supports the diagnosis of Diabetes Mellitus. Hematocrit Auto (Bld) [Volum e fraction]Ordered By: Williams Shepherd on 03-26-2023 Hematocrit (Bld) [Volume fraction] 40.3 % 34.0-46.4 [facility] Hemoglobin [Mass/volume] in BloodOrdered By: Williams Shepherd on 03-26-2023 Hemoglobin (Bld) [Mass/Vol] 13.3 g/dL 11.8-15.4 [facility] INR in Platelet poor plasma by Coagulation assayOrdered By: Williams Shepherd on 03-26-2023 INR Coag (PPP) [Relative time] 2.3 {INR} [facility] Comment on above: INR Therapeutic [...] RBC Auto (Bld) [#/Vol] 5.9 10*3/uL 3.8-11.6 [facility] Lymphocytes Auto (Bld) [#/Vo l]Ordered By: Williams Shepherd on 03-26-2023 Lymphocytes (Bld) [#/Vol] 2.2 10*3/uL 1.00-4.8 [facility] Lymphocytes/100 WBC Auto (Bl d)Ordered By: Williams Shepherd on 03-26-2023 Lymphocytes/100 WBC (Bld) 36.9 % . [facility] MCH Auto (RBC) [Entitic mass ]Ordered By: Williams Shepherd on 03-26-2023 MCH (RBC) [Entitic mass] 31.1 pg 24.7-34.3 [facility] MCHC Auto (RBC) [Mass/Vol]Or dered By: Williams Shepherd on 03-26-2023 MCHC (RBC) [Mass/Vol] 32.9 g/dL 32.0-35.0 [facility] MCV Auto (RBC) [Entitic vol] Ordered By: Williams Shepherd on 03-26-2023 MCV (RBC) [Entitic vol] 94.4 fL 80-100 [facility] Monocytes Auto (Bld) [#/Vol] Ordered By: Williams Shepherd on 03-26-2023 Monocytes (Bld) [#/Vol] 0.5 10*3/uL 0.0-0.8 [facility] Monocytes/100 WBC Auto (Bld) Ordered By: Williams Shepherd on 03-26-2023 Monocytes/100 WBC (Bld) 7.8 % . [facility] Neutrophils Auto (Bld) [#/Vo l]Ordered By: Williams Shepherd on 03-26-2023 Neutrophils (Bld) [#/Vol] 3.0 10*3/uL 1.8-7.7 [facility] Neutrophils/100 WBC Auto (Bl d)Ordered By: Williams Shepherd on 03-26-2023 Neutrophils/100 WBC (Bld) 50.2 % . [facility] No Panel InformationOrdered By: Williams Shepherd on 03-26-2023 Estimated GFR (CKD-EPI) > 60.0 mL/Min [facility] Creatinine Clearance (Chem N/A [facility] Nucleated erythrocytes [Pres ence] in Blood by Automated countOrdered By: Williams Shepherd on 03-26-2023 Nucleated RBC Auto Ql (Bld) 0.3 /100{WBC} 0-0.5 [facility] Partial Thromboplastin Timeo n 03-26-2023 aPTT Coag (Bld) [Time] 35.9 s Normal 25.1-36.5 [facility] Comment on above: Result Comment: A he matocrit value greater than 55% may lead to inaccurate results in coagulation testing. Patients having hematocrit values >55% require a special collection tube for coagulation studies. Please contact the laboratory at [phone] for redraw instructions. PERFORMED BY: [place] [id number] PATHOLOGIST PLASTICS TOOLING ENGINEER BERNIE GRAYSON M.D. Performed By: #### P T, BMP, CBC, PTT #### [place] [id number] [facility] Platelet mean volume Auto (B ld) [Entitic vol]Ordered By: Williams Shepherd on 03-26-2023 Platelet mean volume (Bld) [Entitic vol] 7.1 fL 6.3-10.7 [facility] Platelets Auto (Bld) [#/Vol] Ordered By: Williams Cora on 03-26-2023 Platelets (Bld) [#/Vol] 363 10*3/uL 150-450 [facility] Potassium [Moles/volume] in Serum or PlasmaOrdered By: Williams Shepherd on 03-26-2023 Potassium [Moles/Vol] 5.0 mmol/L 3.5-5.1 [facility] Prothrombin Time INRon 03-26 INR Coag (PPP) [Relative time] 2.3 {INR} Normal [facility] Comment on above: [...] #### P T, BMP, CBC, PTT #### [facility] [id number] [facility] PT Coag (PPP) [Time] 26.6 s High 9.0-12.9 [facility] Comment on above: Result Comment: A he matocrit value greater than 55% may lead to inaccurate results in coagulation testing. Patients having hematocrit values >55% require a special collection tube for coagulation studies. Please contact the laboratory at [phone] for redraw instructions. Performed By: #### P T, BMP, CBC, PTT #### [facility] [address] [id number] [facility] Prothrombin time (PT)Ordered By: Williams Shepherd on 03-26-2023 PT Coag (PPP) [Time] 26.6 s 9.0-12.9 [facility] Comment on above: A hematocrit value g reater than 55% may lead to inaccurate results in coagulation testing. Patients having hematocrit values >55% require a special collection tube for coagulation studies. Please contact the laboratory at [phone] for redraw instructions. RBC Auto (Bld) [#/Vol]Ordere d By: Williams Shepherd on 03-26-2023 RBC (Bld) [#/Vol] 4.27 10*6/uL 3.60-5.00 [facility] Serum or plasma anion gap de terminationOrdered By: Williamschilo Shepherd on 03-26-2023 Anion gap [Moles/Vol] 13.0 mmol/L 6.0-15.0 [facility] Sodium [Moles/volume] in Ser um or PlasmaOrdered By: Williams Shepherd on 03-26-2023 Sodium [Moles/Vol] 142 mmol/L 136-145 [facility] Urea nitrogen [Mass/volume] in Serum or PlasmaOrdered By: Williams Shepherd on 03-26-2023 Urea nitrogen [Mass/Vol] 12 mg/dL 7- [facility] WBC Auto (Bld) [#/Vol]Ordere d By: Williams Cora on 03-26-2023 WBC (Bld) [#/Vol] 5.9 10*3/uL 3.8-11.6 [facility] Consultation Noteon 03-17-20 Consultation Note [id number] .00CD:127 [facility] Lab Reportson 02-12-2023 Lab Reports [id number] .00CD:127 [facility] RAD - MISCon 02-12-2023 RAD - MISC [id number] .00CD:127 [facility] RAD - CT Reporton 02-05-2023 RAD - CT Report [id number] .00CD:127 [facility] RAD - MISCon 02-05-2023 RAD - MISC [id number] .00CD:127 [facility] Ambulatory Visit Summaryon 0 02-03-2023 Ambulatory Visit Summary WILDA SEN :1945 Visit Date:02/03/2023 Ambulatory Visit Instructions Your Diagnosis Kidney stones Tests Performed XR Abdomen 1 View -- Results Pending -- Please visit your patient portal for your results or contact your primary care physician. Your Care Team Attending Physician - Williams SHEPHERD MD Primary Care Physician - CHRIS AGUIAR, JAYME [...] Williams SHEPHERD MD Where: [facility] Patient Educationon 02-04-20 23 Patient Education Urology [...] these instructions at home: Medicines ? Take aaqr-rdj-ejyafth and prescription medicines only as told by [...] follow (more content not included)... Normal [facility] Urology Office/Clinic Noteon 02-03-2023 Urology Office/Clinic Note [...] With When Contact Information CORA AGUIAR, Williams Venegas, URL [address] [facility] [address] [place] [id number]- Additional Instructions: Patient Education Kidney Stones I, Fanny Bowen, personally scribed for Dr. Shepherd on 02/03/2023 12:04:03. . Documentation recorded by the scribe, Fanny Bowen, accurately reflects the services(s) I performed and decisions made by me. Authenticated by Dr. Shepherd on 02/03/2023 12:37:35. Portions of this record may have been created with voice recognition artificial intelligence software, specifically [employer], [employer] and or [employer]. Substitutions may have occurred due to the inherent limitations of voice recognition and artificial intelligence software. 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 Normal [facility] Comment on above: Result Comment: Elec tronically Signed By: Williams SHEPHERD MD\.br\Date and Time Signed: 02/03/23 12:39 EDT\.br\Electronically Co-Signed By: Fanny Bowen\.br\Date and Time Co-Signed: 02/03/23 12:04 EDT PROTIMEon 12-02-2022 INR Coag (PPP) [Relative time] 3.62 {INR} Normal [facility] Comment on above: Performed By: #### P T #### [facility] [address] [address] [address] Tg Fierro INR GUIDELINES SEE BELOW Normal [facility] Comment on above: Result Comment: LAURENCE RED INR: 2.0 - 3.0 CONDITIONS NOT LISTED BELOW 2.5 - 3.5 FOR PROSTHETIC HEART VALVE REPLACEMENT 2.5 - 3.5 RECURRENT THROMBOSIS Performed By: #### P T #### [facility] [address] [address] [address] Tg Fierro PT Coag (PPP) [Time] 35.7 s Critically high 9.0-11.6 [facility] Comment on above: Performed By: #### P T #### [facility] [address] [address] [address] Tg Fierro PROTIMEon 11-11-2022 INR Coag (PPP) [Relative time] 1.90 {INR} Normal [facility] Comment on above: Performed By: #### P T #### [facility] [address] [place] [address] Dr. Tg Fierro INR GUIDELINES SEE BELOW Normal [facility] Comment on above: Result Comment: LAURENCE RED INR: 2.0 - 3.0 CONDITIONS NOT LISTED BELOW 2.5 - 3.5 FOR PROSTHETIC HEART VALVE REPLACEMENT 2.5 - 3.5 RECURRENT THROMBOSIS Performed By: #### P T #### [facility] [address] [place] [address] Dr. Tg Fierro PT Coag (PPP) [Time] 19.4 s Critically high 9.0-11.6 [facility] Comment on above: Performed By: #### P T #### [facility] [address] [place] [address] Dr. Tg Fierro CBC AUTO DIFFon 10-25-2022 BASO # 0.0 103/ul Normal 0.0-0.1 [facility] Comment on above: Performed By: #### P T #### [facility] [address] [place] [address] Dr. Tg Fierro Basophils/100 WBC (Bld) 0.5 % Normal 0.2-2.0 [facility] Comment on above: Performed By: #### P T #### [facility] [address] [place] [address] Dr. Tg iFerro EO # 0.2 103/ul Normal 0.0-0.7 [facility] Comment on above: Performed By: #### P T #### [facility] [address] [place] [address] Dr. Tg Fierro Eosinophils/100 WBC (Bld) 2.7 % Normal 0.9-7.0 [facility] Comment on above: Performed By: #### P T #### [facility] [address] [place] [address] Dr. Tg Fierro Erythrocyte distribution width (RBC) [Ratio] 13.4 % Normal 11.0-15.0 [facility] Comment on above: Performed By: #### P T #### [facility] [address] [place] [address] Dr. Tg Fierro Hematocrit (Bld) [Volume fraction] 40.7 % Normal 36.0-48.0 [facility] Comment on above: Performed By: #### P T #### [facility] [address] [place] [address] Dr. Tg Fierro Hemoglobin (Bld) [Mass/Vol] 13.2 g/dL Normal 12.0-16.0 [facility] Comment on above: Performed By: #### P T #### [facility] [address] [place] [address] Dr. Tg Fierro IG # 0.03 10e3/ul Normal 0.00-0.03 [facility] Comment on above: Performed By: #### P T #### [facility] [address] [place] [address] Dr. Tg Fierro IG % 0.5 % Normal 0.0-0.5 [facility] Comment on above: Performed By: #### P T #### [facility] [address] [place] [address] Dr. Tg Fierro LYMPH # 2.1 103/ul Normal 1.2-3.8 [facility] Comment on above: Performed By: #### P T #### [facility] [address] [place] [address] Dr. Tg Fierro Lymphocytes/100 WBC (Bld) 34.9 % Normal 20.5-60.0 [facility] Comment on above: Performed By: #### P T #### [facility] [address] [place] [address] Dr. Tg Fierro MANUAL DIFF REQ NO Normal [facility] Comment on above: Performed By: #### P T #### [facility] [address] [place] [address] Dr. Tg Fierro MCH (RBC) [Entitic mass] 30.5 pg Normal 26.7-34.0 [facility] Comment on above: Performed By: #### P T #### [facility] [address] [place] [address] Dr. Tg Fierro MCHC (RBC) [Mass/Vol] 32.4 g/dL Normal 29.9-35.2 [facility] Comment on above: Performed By: #### P T #### [facility] [address] [place] [address] Dr. Tg Fierro MCV (RBC) [Entitic vol] 94.0 fL Normal 81.0-99.0 [facility] Comment on above: Performed By: #### P T #### [facility] [address] [place] [address] Dr. Tg Fierro MONO # 0.4 103/ul Normal 0.3-0.8 The [facility] Comment on above: Performed By: #### P T #### [facility] [address] [place] [address] Dr. Tg Fierro Monocytes/100 WBC (Bld) 7.1 % Normal 1.7-12.0 [facility] Comment on above: Performed By: #### P T #### [facility] [address] [place] [address] Dr. Tg Fierro NEUT # 3.2 103/ul Normal 1.4-6.5 [facility] Comment on above: Performed By: #### P T #### [facility] [address] [place] [address] Dr. Tg Fierro Neutrophils/100 WBC (Bld) 54.3 % Normal 43.0-75.0 [facility] Comment on above: Performed By: #### P T #### [facility] [address] [place] [address] Dr. gT Fierro Platelet mean volume (Bld) [Entitic vol] 8.7 fL Critically low 9.5-13.5 The [facility] Comment on above: Performed By: #### P T #### [facility] [address] [place] [address] Dr. Tg Fierro PLT 295 103/ul Normal 150-450 The [facility] Comment on above: Performed By: #### P T #### [facility] [address] [place] [address] Dr. Tg Fierro RBC 4.33 106/ul Normal 4.20-5.40 The [facility] Comment on above: Performed By: #### P T #### [facility] [address] [place] [address] Dr. Tg Fierro WBC 5.9 103/ul Normal 4.0-11.0 [facility] Comment on above: Performed By: #### P T #### [facility] [address] [place] [address] Dr. Tg Fierro PROF 14(COMP METB)on 023 Albumin [Mass/Vol] 3.8 g/dL Normal 3.4-5.0 [facility] Comment on above: Performed By: #### C MP #### [facility] [address] [place] [address] Dr. Tg Fierro Albumin/Globulin [Mass ratio] 1.2 {ratio} Normal [facility] Comment on above: Performed By: #### C MP #### [facility] [address] [place] [address] Dr. Tg Fierro ALP [Catalytic activity/Vol] 49 U/L Normal 46-116 [facility] Comment on above: Performed By: #### C MP #### [facility] [address] [place] [address] Dr. Tg Fierro ALT [Catalytic activity/Vol] 21 U/L Normal 14-59 [facility] Comment on above: Performed By: #### C MP #### [facility] [address] [place] [address] Dr. Tg Fierro Anion gap [Moles/Vol] 13.3 mmol/L Normal [facility] Comment on above: Performed By: #### C MP #### [facility] [address] [place] [address] Dr. Tg Fierro AST [Catalytic activity/Vol] 14 U/L Critically low 15-37 [facility] Comment on above: Performed By: #### C MP #### [facility] [address] [place] [address] Dr. Tg Fierro Bilirubin [Mass/Vol] 0.5 mg/dL Normal 0.2-1.0 [facility] Comment on above: Performed By: #### C MP #### [facility] [address] [address] [address] Tg Fierro Calcium [Mass/Vol] 9.5 mg/dL Normal 8.5-10.1 [facility] Comment on above: Performed By: #### C MP #### [facility] [address] [address] [address] Tg Fierro Chloride [Moles/Vol] 104 mmol/L Normal 98-107 [facility] Comment on above: Performed By: #### C MP #### [facility] [address] [address] [address] Tg Fierro CO2 [Moles/Vol] 29.3 mmol/L Normal 21.0-32.0 [facility] Comment on above: Performed By: #### C MP #### [facility] [address] [place] [address] Dr. Tg Fierro Creatinine [Mass/Vol] 0.93 mg/dL Normal 0.55-1.02 [facility] Comment on above: Performed By: #### C MP #### [facility] [address] [place] [address] Dr. Tg Fierro EGFR-AF MARTINIQUAIS >60 Normal >=60 [facility] Comment on above: Performed By: #### C MP #### [facility] [address] [place] [address] Dr. Tg Fierro EGFR-NON AF MARTINIQUAIS 59 mL/min/1.73m2 Critically low >=60 [facility] Comment on above: Performed By: #### C MP #### [facility] [address] [place] [address] Dr. Tg Fierro Globulin (S) [Mass/Vol] 3.2 g/dL Normal [facility] Comment on above: Performed By: #### C MP #### [facility] [address] [place] [address] Dr. Tg Fierro Glucose [Mass/Vol] 186 mg/dL Critically high 74-106 [facility] Comment on above: Performed By: #### C MP #### [facility] [address] [address] [address] Tg Fierro Potassium [Moles/Vol] 4.6 mmol/L Normal 3.5-5.1 [facility] Comment on above: Performed By: #### C MP #### [facility] [address] [address] [address] Tg Fierro Protein [Mass/Vol] 7.0 g/dL Normal 6.4-8.2 [facility] Comment on above: Performed By: #### C MP #### [facility] [address] [address] [address] Tg Fierro Sodium [Moles/Vol] 142 mmol/L Normal 136-145 [facility] Comment on above: Performed By: #### C MP #### [facility] [address] [place] [address] Dr. Tg Fierro Urea nitrogen [Mass/Vol] 15.0 mg/dL Normal 7.0-18.0 [facility] Comment on above: Performed By: #### C MP #### [facility] [address] [place] [address] Dr. Tg Fierro Urea nitrogen/Creatinine [Mass ratio] 16.1 mg/mg Normal [facility] Comment on above: Performed By: #### C MP #### [facility] [address] [place] [address] Dr. Tg Fierro SED RATE [facility] 2022 SED RATE 9 mm/hr Normal <=30 The [facility] Comment on above: Performed By: #### C MP #### [facility] [address] [place] [address] Dr. Tg Fierro PROTIMEon 10-14-2022 INR Coag (PPP) [Relative time] 1.94 {INR} Normal [facility] Comment on above: Performed By: #### P T #### [facility] [address] [place] [address] Dr. Tg Fierro INR GUIDELINES SEE BELOW Normal [facility] Comment on above: Result Comment: LAURENCE RED INR: 2.0 - 3.0 CONDITIONS NOT LISTED BELOW 2.5 - 3.5 FOR PROSTHETIC HEART VALVE REPLACEMENT 2.5 - 3.5 RECURRENT THROMBOSIS Performed By: #### P T #### [facility] [address] [place] [address] Dr. Tg Fierro PT Coag (PPP) [Time] 19.8 s Critically high 9.0-11.6 [facility] Comment on above: Performed By: #### P T #### [facility] [address] [place] [address] Dr. Tg Fierro CBC AUTO DIFFon 09-24-2022 BASO # 0.1 103/ul Normal 0.0-0.1 [facility] Comment on above: Performed By: #### P T #### [facility] [address] [place] [address] Dr. Tg Fierro Basophils/100 WBC (Bld) 0.7 % Normal 0.2-2.0 [facility] Comment on above: Performed By: #### P T #### [facility] [address] [place] [address] Dr. Tg Fierro EO # 0.3 103/ul Normal 0.0-0.7 [facility] Comment on above: Performed By: #### P T #### [facility] [address] [place] [address] Dr. Tg Fierro Eosinophils/100 WBC (Bld) 3.6 % Normal 0.9-7.0 [facility] Comment on above: Performed By: #### P T #### [facility] [address] [place] [address] Dr. Tg Fierro Erythrocyte distribution width (RBC) [Ratio] 13.4 % Normal 11.0-15.0 [facility] Comment on above: Performed By: #### P T #### [facility] [address] [place] [address] Dr. Tg Fierro Hematocrit (Bld) [Volume fraction] 38.4 % Normal 36.0-48.0 [facility] Comment on above: Performed By: #### P T #### [facility] [address] [place] [address] Dr. Tg Fierro Hemoglobin (Bld) [Mass/Vol] 12.7 g/dL Normal 12.0-16.0 [facility] Comment on above: Performed By: #### P T #### [facility] [address] [place] [address] Dr. Tg Fierro IG # 0.05 10e3/ul Critically high 0.00-0.03 [facility] Comment on above: Performed By: #### P T #### [facility] [address] [place] [address] Dr. Tg Fierro IG % 0.7 % Critically high 0.0-0.5 [facility] Comment on above: Performed By: #### P T #### [facility] [address] [place] [address] Dr. Tg Fierro LYMPH # 2.6 103/ul Normal 1.2-3.8 [facility] Comment on above: Performed By: #### P T #### [facility] [address] [place] [address] Dr. Tg Fierro Lymphocytes/100 WBC (Bld) 34.2 % Normal 20.5-60.0 [facility] Comment on above: Performed By: #### P T #### [facility] [address] [place] [address] Dr. Tg Fierro MANUAL DIFF REQ NO Normal [facility] Comment on above: Performed By: #### P T #### [facility] [address] [place] [address] Dr. Tg Fierro MCH (RBC) [Entitic mass] 31.2 pg Normal 26.7-34.0 [facility] Comment on above: Performed By: #### P T #### [facility] [address] [place] [address] Dr. Tg Fierro MCHC (RBC) [Mass/Vol] 33.1 g/dL Normal 29.9-35.2 [facility] Comment on above: Performed By: #### P T #### [facility] [address] [place] [address] Dr. Tg Fierro MCV (RBC) [Entitic vol] 94.3 fL Normal 81.0-99.0 [facility] Comment on above: Performed By: #### P T #### [facility] [address] [address] [address] Tg Fierro MONO # 0.6 103/ul Normal 0.3-0.8 [facility] Comment on above: Performed By: #### P T #### [facility] [address] [address] [address] Tg Fierro Monocytes/100 WBC (Bld) 8.1 % Normal 1.7-12.0 [facility] Comment on above: Performed By: #### P T #### [facility] [address] [address] [address] Tg Fierro NEUT # 4.1 103/ul Normal 1.4-6.5 [facility] Comment on above: Performed By: #### P T #### [facility] [address] [place] [address] Dr. Tg Fierro Neutrophils/100 WBC (Bld) 52.7 % Normal 43.0-75.0 [facility] Comment on above: Performed By: #### P T #### [facility] [address] [address] [address] Tg Fierro Platelet mean volume (Bld) [Entitic vol] 8.7 fL Critically low 9.5-13.5 [facility] Comment on above: Performed By: #### P T #### [facility] [address] [address] [address] Tg Fierro PLT 278 103/ul Normal 150-450 The [facility] Comment on above: Performed By: #### P T #### [facility] [address] [address] [address] Tg Fierro RBC 4.07 106/ul Critically low 4.20-5.40 [facility] Comment on above: Performed By: #### P T #### [facility] [address] [address] [address] Tg Fierro WBC 7.7 103/ul Normal 4.0-11.0 The [facility] Comment on above: Performed By: #### P T #### [facility] [address] [place] [address] Dr. Tg Fierro PROF 14(COMP METB)on 023 Albumin [Mass/Vol] 3.9 g/dL Normal 3.4-5.0 [facility] Comment on above: Performed By: #### C MP #### [facility] [address] [place] [address] Dr. Tg Fierro Albumin/Globulin [Mass ratio] 1.4 {ratio} Normal [facility] Comment on above: Performed By: #### C MP #### [facility] [address] [place] [address] Dr. Tg Fierro ALP [Catalytic activity/Vol] 59 U/L Normal 46-116 [facility] Comment on above: Performed By: #### C MP #### [facility] [address] [place] [address] Dr. Tg Fierro ALT [Catalytic activity/Vol] 21 U/L Normal 14-59 [facility] Comment on above: Performed By: #### C MP #### [facility] [address] [place] [address] Dr. Tg Fierro Anion gap [Moles/Vol] 10.8 mmol/L Normal [facility] Comment on above: Performed By: #### C MP #### [facility] [address] [place] [address] Dr. Tg Fierro AST [Catalytic activity/Vol] 9 U/L Critically low 15-37 [facility] Comment on above: Performed By: #### C MP #### [facility] [address] [place] [address] Dr. Tg Fierro Bilirubin [Mass/Vol] 0.3 mg/dL Normal 0.2-1.0 [facility] Comment on above: Performed By: #### C MP #### [facility] [address] [place] [address] Dr. Tg Fierro Calcium [Mass/Vol] 9.1 mg/dL Normal 8.5-10.1 [facility] Comment on above: Performed By: #### C MP #### [facility] [address] [place] [address] Dr. Tg Fierro Chloride [Moles/Vol] 104 mmol/L Normal 98-107 The [facility] Comment on above: Performed By: #### C MP #### [facility] [address] [place] [address] Dr. Tg Fierro CO2 [Moles/Vol] 28.3 mmol/L Normal 21.0-32.0 [facility] Comment on above: Performed By: #### C MP #### [facility] [address] [place] [address] Dr. Tg Fierro Creatinine [Mass/Vol] 0.86 mg/dL Normal 0.55-1.02 The [facility] Comment on above: Performed By: #### C MP #### [facility] [address] [place] [address] Dr. Tg Fierro EGFR-AF MARTINIQUAIS >60 Normal >=60 [facility] Comment on above: Performed By: #### C MP #### [facility] [address] [place] [address] Dr. Tg Fierro EGFR-NON AF MARTINIQUAIS >60 Normal >=60 [facility] Comment on above: Performed By: #### C MP #### [facility] [address] [place] [address] Dr. Tg Fierro Globulin (S) [Mass/Vol] 2.7 g/dL Normal [facility] Comment on above: Performed By: #### C MP #### [facility] [address] [place] [address] Dr. Tg Fierro Glucose [Mass/Vol] 120 mg/dL Critically high 74-106 T [facility] Comment on above: Performed By: #### C MP #### [facility] [address] [place] [address] Dr. Tg Fierro Potassium [Moles/Vol] 4.1 mmol/L Normal 3.5-5.1 [facility] Comment on above: Performed By: #### C MP #### [facility] [address] [place] [address] Dr. Tg Fierro Protein [Mass/Vol] 6.6 g/dL Normal 6.4-8.2 [facility] Comment on above: Performed By: #### C MP #### [facility] [address] [place] [address] Dr. Tg Fierro Sodium [Moles/Vol] 139 mmol/L Normal 136-145 [facility] Comment on above: Performed By: #### C MP #### [facility] [address] [place] [address] Dr. Tg Fierro Urea nitrogen [Mass/Vol] 13.0 mg/dL Normal 7.0-18.0 [facility] Comment on above: Performed By: #### C MP #### [facility] [address] [place] [address] Dr. Tg Fierro Urea nitrogen/Creatinine [Mass ratio] 15.1 mg/mg Normal [facility] Comment on above: Performed By: #### C MP #### [facility] [address] [place] [address] Dr. Tg Fierro PROTIMEon 09-24-2022 INR Coag (PPP) [Relative time] 1.35 {INR} Normal [facility] Comment on above: Performed By: #### P T #### [facility] [address] [place] [address] Dr. Tg Fierro INR GUIDELINES SEE BELOW Normal [facility] Comment on above: Result Comment: LAURENCE RED INR: 2.0 - 3.0 CONDITIONS NOT LISTED BELOW 2.5 - 3.5 FOR PROSTHETIC HEART VALVE REPLACEMENT 2.5 - 3.5 RECURRENT THROMBOSIS Performed By: #### P T #### [facility] [address] [place] [address] Dr. Tg Fierro PT Coag (PPP) [Time] 14.1 s Critically high 9.0-11.6 The [facility] Comment on above: Performed By: #### P T #### [facility] [address] [place] [address] Dr. Tg F[facility] mm/hr Normal <=30 [facility] Comment on above: Performed By: #### C MP #### [facility] [address] [address] [address] Tg Fierro PROTIMEon 09-09-2022 INR Coag (PPP) [Relative time] 1.23 {INR} Normal [facility] Comment on above: Performed By: #### P T #### [facility] [address] [address] [address] Tg Fierro INR GUIDELINES SEE BELOW Normal [facility] Comment on above: Result Comment: LAURENCE RED INR: 2.0 - 3.0 CONDITIONS NOT LISTED BELOW 2.5 - 3.5 FOR PROSTHETIC HEART VALVE REPLACEMENT 2.5 - 3.5 RECURRENT THROMBOSIS Performed By: #### P T #### [facility] [address] [address] [address] Tg Fierro PT Coag (PPP) [Time] 12.9 s Critically high 9.0-11.6 [facility] Comment on above: Performed By: #### P T #### [facility] [address] [place] [address] Dr. Tg Fierro ECHOCARDIO M/2D COMPLETEon 0 09-02-2022 ECHOCARDIO M/2D COMPLETE Patient: WILDA SEN Exam Date: 09/02/2022 : 1945 Gender:F Ordering : DR JAYME PEREZ . Admission #: [id number] Family : Order #: [id number] CLICK HERE TO VIEW EXAM ECHOCARDIOGRAM REPORT [...] Bender M.D. on 09/03/2022 at 17:25 Normal [facility] GLYCOHEMOGLOBIN A1Con 2022 ADA RECOMMENDATION SEE BELOW Normal [facility] Comment on above: Result Comment: ADA RECOMMENDED LIMIT 4.0 - 6.0 ADA THERAPEUTIC TARGET < 7.0 ACTION SUGGESTED > 7.0 Performed By: #### A 1C #### [facility] [address] [place] [address] Dr. Tg Fierro Glucose [Mass/Vol] 148 mg/dL Normal [facility] Comment on above: Performed By: #### A 1C #### [facility] [address] [address] [address] Tg Fierro HbA1c (Bld) [Mass fraction] 6.8 % Critically high 4.5-6.2 [facility] Comment on above: Performed By: #### A 1C #### [facility] [address] [place] [address] Dr. Tg Fierro CBC AUTO DIFFon 08-05-2022 BASO # 0.1 103/ul Normal 0.0-0.1 [facility] Comment on above: Performed By: #### C BC #### [facility] [address] [place] [address] Dr. Tg Fierro Basophils/100 WBC (Bld) 0.8 % Normal 0.2-2.0 [facility] Comment on above: Performed By: #### C BC #### [facility] [address] [place] [address] Dr. Tg Fierro EO # 0.5 103/ul Normal 0.0-0.7 The [facility] Comment on above: Performed By: #### C BC #### [facility] [address] [place] [address] Dr. Tg Fierro Eosinophils/100 WBC (Bld) 7.3 % Critically high 0.9-7.0 [facility] Comment on above: Performed By: #### C BC #### [facility] [address] [place] [address] Dr. Tg Fierro Erythrocyte distribution width (RBC) [Ratio] 13.4 % Normal 11.0-15.0 [facility] Comment on above: Performed By: #### C BC #### [facility] [address] [place] [address] Dr. Tg Fierro Hematocrit (Bld) [Volume fraction] 37.1 % Normal 36.0-48.0 [facility] Comment on above: Performed By: #### C BC #### [facility] [address] [place] [address] Dr. Tg Fierro Hemoglobin (Bld) [Mass/Vol] 12.9 g/dL Normal 12.0-16.0 [facility] Comment on above: Performed By: #### C BC #### [facility] [address] [place] [address] Dr. Tg Fierro IG # 0.03 10e3/ul Normal 0.00-0.03 [facility] Comment on above: Performed By: #### C BC #### [facility] [address] [place] [address] Dr. Tg Fierro IG % 0.5 % Normal 0.0-0.5 [facility] Comment on above: Performed By: #### C BC #### [facility] [address] [place] [address] Dr. Tg Fierro LYMPH # 2.3 103/ul Normal 1.2-3.8 [facility] Comment on above: Performed By: #### C BC #### [facility] [address] [place] [address] Dr. Tg Fierro Lymphocytes/100 WBC (Bld) 34.9 % Normal 20.5-60.0 [facility] Comment on above: Performed By: #### C BC #### [facility] [address] [place] [address] Dr. Tg Fierro MANUAL DIFF REQ NO Normal [facility] Comment on above: Performed By: #### C BC #### [facility] [address] [place] [address] Dr. Tg Fierro MCH (RBC) [Entitic mass] 31.0 pg Normal 26.7-34.0 [facility] Comment on above: Performed By: #### C BC #### [facility] [address] [place] [address] Dr. Tg Fierro MCHC (RBC) [Mass/Vol] 34.8 g/dL Normal 29.9-35.2 [facility] Comment on above: Performed By: #### C BC #### [facility] [address] [place] [address] Dr. Tg Fierro MCV (RBC) [Entitic vol] 89.2 fL Normal 81.0-99.0 The [facility] Comment on above: Performed By: #### C BC #### [facility] [address] [place] [address] Dr. Tg Fierro MONO # 0.4 103/ul Normal 0.3-0.8 The [facility] Comment on above: Performed By: #### C BC #### [facility] [address] [place] [address] Dr. Tg Fierro Monocytes/100 WBC (Bld) 6.1 % Normal 1.7-12.0 [facility] Comment on above: Performed By: #### C BC #### [facility] [address] [address] [address] Tg Fierro NEUT # 3.3 103/ul Normal 1.4-6.5 The [facility] Comment on above: Performed By: #### C BC #### [facility] [address] [address] [address] Tg Fierro Neutrophils/100 WBC (Bld) 50.4 % Normal 43.0-75.0 [facility] Comment on above: Performed By: #### C BC #### [facility] [address] [place] [address] Dr. Tg Fierro Platelet mean volume (Bld) [Entitic vol] 8.6 fL Critically low 9.5-13.5 The [facility] Comment on above: Performed By: #### C BC #### [facility] [address] [address] [address] Tg Fierro PLT 336 103/ul Normal 150-450 [facility] Comment on above: Performed By: #### C BC #### [facility] [address] [place] [address] Dr. Tg Fierro RBC 4.16 106/ul Critically low 4.20-5.40 [facility] Comment on above: Performed By: #### C BC #### [facility] [address] [place] [address] Dr. Tg Fierro WBC 6.4 103/ul Normal 4.0-11.0 [facility] Comment on above: Performed By: #### C BC #### [facility] [address] [address] [address] Tg Fierro PROF 14(COMP METB)on 023 Albumin [Mass/Vol] 3.9 g/dL Normal 3.4-5.0 [facility] Comment on above: Performed By: #### P T #### [facility] [address] [place] [address] Dr. Tg iFerro Albumin/Globulin [Mass ratio] 1.3 {ratio} Normal [facility] Comment on above: Performed By: #### P T #### [facility] [address] [place] [address] Dr. Tg Fierro ALP [Catalytic activity/Vol] 60 U/L Normal 46-116 [facility] Comment on above: Performed By: #### P T #### [facility] [address] [place] [address] Dr. Tg Fierro ALT [Catalytic activity/Vol] 21 U/L Normal 14-59 [facility] Comment on above: Performed By: #### P T #### [facility] [address] [place] [address] Dr. Tg Fierro Anion gap [Moles/Vol] 15.2 mmol/L Normal [facility] Comment on above: Performed By: #### P T #### [facility] [address] [place] [address] Dr. Tg Fierro AST [Catalytic activity/Vol] 14 U/L Critically low 15-37 [facility] Comment on above: Performed By: #### P T #### [facility] [address] [place] [address] Dr. Tg Fierro Bilirubin [Mass/Vol] 0.4 mg/dL Normal 0.2-1.0 [facility] Comment on above: Performed By: #### P T #### [facility] [address] [place] [address] Dr. Tg Fierro Calcium [Mass/Vol] 9.3 mg/dL Normal 8.5-10.1 [facility] Comment on above: Performed By: #### P T #### [facility] [address] [place] [address] Dr. Tg Fierro Chloride [Moles/Vol] 102 mmol/L Normal 98-107 The [facility] Comment on above: Performed By: #### P T #### [facility] [address] [place] [address] Dr. Tg Fierro CO2 [Moles/Vol] 26.8 mmol/L Normal 21.0-32.0 [facility] Comment on above: Performed By: #### P T #### [facility] [address] [place] [address] Dr. Tg Fierro Creatinine [Mass/Vol] 0.74 mg/dL Normal 0.55-1.02 [facility] Comment on above: Performed By: #### P T #### [facility] [address] [address] [address] Tg Fierro EGFR-AF MARTINIQUAIS >60 Normal >=60 [facility] Comment on above: Performed By: #### P T #### [facility] [address] [address] [address] Tg Fierro EGFR-NON AF MARTINIQUAIS >60 Normal >=60 [facility] Comment on above: Performed By: #### P T #### [facility] [address] [address] [address] Tg Fierro Globulin (S) [Mass/Vol] 3.1 g/dL Normal [facility] Comment on above: Performed By: #### P T #### [facility] [address] [place] [address] Dr. Tg Fierro Glucose [Mass/Vol] 148 mg/dL Critically high 74-106 [facility] Comment on above: Performed By: #### P T #### [facility] [address] [address] [address] Tg Fierro Potassium [Moles/Vol] 4.0 mmol/L Normal 3.5-5.1 [facility] Comment on above: Performed By: #### P T #### [facility] [address] [address] [address] Tg Fierro Protein [Mass/Vol] 7.0 g/dL Normal 6.4-8.2 [facility] Comment on above: Performed By: #### P T #### [facility] [address] [address] [address] Tg Fierro Sodium [Moles/Vol] 140 mmol/L Normal 136-145 [facility] Comment on above: Performed By: #### P T #### [facility] [address] [address] [address] Tg Fierro Urea nitrogen [Mass/Vol] 12.0 mg/dL Normal 7.0-18.0 [facility] Comment on above: Performed By: #### P T #### [facility] [address] [place] [address] Dr. Tg Fierro Urea nitrogen/Creatinine [Mass ratio] 16.2 mg/mg Normal [facility] Comment on above: Performed By: #### P T #### [facility] [address] [place] [address] Dr. gT Fierro SED RATE WESTERGRENon 2022 SED RATE 30 mm/hr Normal <=30 [facility] Comment on above: Performed By: #### S EDR #### [facility] [address] [place] [address] Dr. Tg Fierro CBC AUTO DIFFon 04-15-2022 BASO # 0.1 103/ul Normal 0.0-0.1 [facility] Comment on above: Performed By: #### C BC #### [facility] [address] [place] [address] Dr. Tg Fierro Basophils/100 WBC (Bld) 0.6 % Normal 0.2-2.0 [facility] Comment on above: Performed By: #### C BC #### [facility] [address] [place] [address] Dr. Tg Fierro EO # 0.2 103/ul Normal 0.0-0.7 [facility] Comment on above: Performed By: #### C BC #### [facility] [address] [place] [address] Dr. Tg Fierro Eosinophils/100 WBC (Bld) 3.1 % Normal 0.9-7.0 [facility] Comment on above: Performed By: #### C BC #### [facility] [address] [place] [address] Dr. Tg Fierro Erythrocyte distribution width (RBC) [Ratio] 13.6 % Normal 11.0-15.0 [facility] Comment on above: Performed By: #### C BC #### [facility] [address] [place] [address] Dr. Tg Fierro Hematocrit (Bld) [Volume fraction] 42.3 % Normal 36.0-48.0 [facility] Comment on above: Performed By: #### C BC #### [facility] [address] [address] [address] Tg Fierro Hemoglobin (Bld) [Mass/Vol] 13.2 g/dL Normal 12.0-16.0 [facility] Comment on above: Performed By: #### C BC #### [facility] [address] [address] [address] Tg Fierro IG # 0.04 10e3/ul Critically high 0.00-0.03 [facility] Comment on above: Performed By: #### C BC #### [facility] [address] [address] [address] Tg Fierro IG % 0.5 % Normal 0.0-0.5 [facility] Comment on above: Performed By: #### C BC #### [facility] [address] [place] [address] Dr. Tg Fierro LYMPH # 2.5 103/ul Normal 1.2-3.8 [facility] Comment on above: Performed By: #### C BC #### [facility] [address] [place] [address] Dr. Tg Fierro Lymphocytes/100 WBC (Bld) 31.6 % Normal 20.5-60.0 [facility] Comment on above: Performed By: #### C BC #### [facility] [address] [place] [address] Dr. Tg Fierro MANUAL DIFF REQ NO Normal [facility] Comment on above: Performed By: #### C BC #### [facility] [address] [place] [address] Dr. Tg Fierro MCH (RBC) [Entitic mass] 30.3 pg Normal 26.7-34.0 [facility] Comment on above: Performed By: #### C BC #### [facility] [address] [place] [address] Dr. Tg Fierro MCHC (RBC) [Mass/Vol] 31.2 g/dL Normal 29.9-35.2 [facility] Comment on above: Performed By: #### C BC #### [facility] [address] [address] [address] Tg Fierro MCV (RBC) [Entitic vol] 97.0 fL Normal 81.0-99.0 [facility] Comment on above: Performed By: #### C BC #### [facility] [address] [address] [address] Tg Fierro MONO # 0.5 103/ul Normal 0.3-0.8 [facility] Comment on above: Performed By: #### C BC #### [facility] [address] [place] [address] Dr. Tg Fierro Monocytes/100 WBC (Bld) 6.3 % Normal 1.7-12.0 [facility] Comment on above: Performed By: #### C BC #### [facility] [address] [place] [address] Dr. Tg Fierro NEUT # 4.5 103/ul Normal 1.4-6.5 [facility] Comment on above: Performed By: #### C BC #### [facility] [address] [place] [address] Dr. Tg Fierro Neutrophils/100 WBC (Bld) 57.9 % Normal 43.0-75.0 [facility] Comment on above: Performed By: #### C BC #### [facility] [address] [place] [address] Dr. Tg Fierro Platelet mean volume (Bld) [Entitic vol] 8.6 fL Critically low 9.5-13.5 [facility] Comment on above: Performed By: #### C BC #### [facility] [address] [place] [address] Dr. Tg Fierro PLT 295 103/ul Normal 150-450 The [facility] Comment on above: Performed By: #### C BC #### [facility] [address] [place] [address] Dr. Tg Fierro RBC 4.36 106/ul Normal 4.20-5.40 The [facility] Comment on above: Performed By: #### C BC #### [facility] [address] [address] [address] Tg Fierro WBC 7.8 103/ul Normal 4.0-11.0 [facility] Comment on above: Performed By: #### C BC #### [facility] [address] [place] [address] Dr. Tg Fierro PROF 14(COMP METB)on 022 Albumin [Mass/Vol] 4.5 g/dL Normal 3.4-5.0 [facility] Comment on above: Performed By: #### C MP #### [facility] [address] [place] [address] Dr. Tg Fierro Albumin/Globulin [Mass ratio] 1.5 {ratio} Normal [facility] Comment on above: Performed By: #### C MP #### [facility] [address] [place] [address] Dr. Tg Fierro ALP [Catalytic activity/Vol] 62 U/L Normal 46-116 [facility] Comment on above: Performed By: #### C MP #### [facility] [address] [place] [address] Dr. Tg Fierro ALT [Catalytic activity/Vol] 25 U/L Normal 14-59 [facility] Comment on above: Performed By: #### C MP #### [facility] [address] [place] [address] Dr. Tg Fierro Anion gap [Moles/Vol] 10.6 mmol/L Normal [facility] Comment on above: Performed By: #### C MP #### [facility] [address] [place] [address] Dr. Tg Fierro AST [Catalytic activity/Vol] 12 U/L Critically low 15-37 [facility] Comment on above: Performed By: #### C MP #### [facility] [address] [place] [address] Dr. Tg Fierro Bilirubin [Mass/Vol] 0.5 mg/dL Normal 0.2-1.0 [facility] Comment on above: Performed By: #### C MP #### [facility] [address] [place] [address] Dr. Tg Fierro Calcium [Mass/Vol] 9.8 mg/dL Normal 8.5-10.1 [facility] Comment on above: Performed By: #### C MP #### [facility] [address] [place] [address] Dr. Tg Fierro Chloride [Moles/Vol] 102 mmol/L Normal 98-107 [facility] Comment on above: Performed By: #### C MP #### [facility] [address] [place] [address] Dr. Tg Fierro CO2 [Moles/Vol] 31.8 mmol/L Normal 21.0-32.0 [facility] Comment on above: Performed By: #### C MP #### [facility] [address] [place] [address] Dr. Tg Fierro Creatinine [Mass/Vol] 0.88 mg/dL Normal 0.55-1.02 [facility] Comment on above: Performed By: #### C MP #### [facility] [address] [place] [address] Dr. Tg Fierro EGFR-AF MARTINIQUAIS >60 Normal >=60 [facility] Comment on above: Performed By: #### C MP #### [facility] [address] [place] [address] Dr. Tg Fierro EGFR-NON AF MARTINIQUAIS >60 Normal >=60 [facility] Comment on above: Performed By: #### C MP #### [facility] [address] [place] [address] Dr. Tg Fierro Globulin (S) [Mass/Vol] 3.1 g/dL Normal [facility] Comment on above: Performed By: #### C MP #### [facility] [address] [place] [address] Dr. Tg Fierro Glucose [Mass/Vol] 187 mg/dL Critically high 74-106 [facility] Comment on above: Performed By: #### C MP #### [facility] [address] [place] [address] Dr. Tg Fierro Potassium [Moles/Vol] 4.4 mmol/L Normal 3.5-5.1 [facility] Comment on above: Performed By: #### C MP #### [facility] [address] [address] [address] Tg Fierro Protein [Mass/Vol] 7.6 g/dL Normal 6.4-8.2 [facility] Comment on above: Performed By: #### C MP #### [facility] [address] [address] [address] Tg Fierro Sodium [Moles/Vol] 140 mmol/L Normal 136-145 [facility] Comment on above: Performed By: #### C MP #### [facility] [address] [address] [address] Tg Fierro Urea nitrogen [Mass/Vol] 14.0 mg/dL Normal 7.0-18.0 [facility] Comment on above: Performed By: #### C MP #### [facility] [address] [address] [address] Tg Fierro Urea nitrogen/Creatinine [Mass ratio] 15.9 mg/mg Normal [facility] Comment on above: Performed By: #### C MP #### [facility] [address] [address] [address] Tg Fierro SED RATE [facility] 2021 SED RATE 5 mm/hr Normal <=30 [facility] Comment on above: Performed By: #### S EDR #### [facility] [address] [address] [address] Tg Fierro CBC AUTO DIFFon 02-07-2022 BASO # 0.0 103/ul Normal 0.0-0.1 [facility] Comment on above: Performed By: #### P T #### [facility] [address] [address] [address] Tg Fierro Basophils/100 WBC (Bld) 0.6 % Normal 0.2-2.0 [facility] Comment on above: Performed By: #### P T #### [facility] [address] [address] [address] Tg Fierro EO # 0.4 103/ul Normal 0.0-0.7 [facility] Comment on above: Performed By: #### P T #### [facility] [address] [place] [address] Dr. Tg Fierro Eosinophils/100 WBC (Bld) 5.4 % Normal 0.9-7.0 [facility] Comment on above: Performed By: #### P T #### [facility] [address] [place] [address] Dr. Tg Fierro Erythrocyte distribution width (RBC) [Ratio] 13.5 % Normal 11.0-15.0 [facility] Comment on above: Performed By: #### P T #### [facility] [address] [place] [address] Dr. Tg Fierro Hematocrit (Bld) [Volume fraction] 39.4 % Normal 36.0-48.0 [facility] Comment on above: Performed By: #### P T #### [facility] [address] [place] [address] Dr. Tg Fierro Hemoglobin (Bld) [Mass/Vol] 12.8 g/dL Normal 12.0-16.0 [facility] Comment on above: Performed By: #### P T #### [facility] [address] [place] [address] Dr. Tg Fierro IG # 0.02 10e3/ul Normal 0.00-0.03 [facility] Comment on above: Performed By: #### P T #### [facility] [address] [place] [address] Dr. Tg Fierro IG % 0.3 % Normal 0.0-0.5 [facility] Comment on above: Performed By: #### P T #### [facility] [address] [place] [address] Dr. Tg Fierro LYMPH # 2.4 103/ul Normal 1.2-3.8 [facility] Comment on above: Performed By: #### P T #### [facility] [address] [place] [address] Dr. Tg Fierro Lymphocytes/100 WBC (Bld) 36.2 % Normal 20.5-60.0 [facility] Comment on above: Performed By: #### P T #### [facility] [address] [place] [address] Dr. Tg Fierro MANUAL DIFF REQ NO Normal [facility] Comment on above: Performed By: #### P T #### [facility] [address] [place] [address] Dr. Tg Fierro MCH (RBC) [Entitic mass] 31.0 pg Normal 26.7-34.0 [facility] Comment on above: Performed By: #### P T #### [facility] [address] [place] [address] Dr. Tg Fierro MCHC (RBC) [Mass/Vol] 32.5 g/dL Normal 29.9-35.2 [facility] Comment on above: Performed By: #### P T #### [facility] [address] [place] [address] Dr. Tg Fierro MCV (RBC) [Entitic vol] 95.4 fL Normal 81.0-99.0 [facility] Comment on above: Performed By: #### P T #### [facility] [address] [place] [address] Dr. Tg Fierro MONO # 0.5 103/ul Normal 0.3-0.8 [facility] Comment on above: Performed By: #### P T #### [facility] [address] [place] [address] Dr. Tg Fierro Monocytes/100 WBC (Bld) 8.0 % Normal 1.7-12.0 [facility] Comment on above: Performed By: #### P T #### [facility] [address] [place] [address] Dr. Tg Fierro NEUT # 3.3 103/ul Normal 1.4-6.5 The [facility] Comment on above: Performed By: #### P T #### [facility] [address] [place] [address] Dr. Tg Fierro Neutrophils/100 WBC (Bld) 49.5 % Normal 43.0-75.0 [facility] Comment on above: Performed By: #### P T #### [facility] [address] [address] [address] Tg Fierro Platelet mean volume (Bld) [Entitic vol] 8.7 fL Critically low 9.5-13.5 [facility] Comment on above: Performed By: #### P T #### [facility] [address] [address] [address] Tg Fierro PLT 276 103/ul Normal 150-450 [facility] Comment on above: Performed By: #### P T #### [facility] [address] [address] [address] Tg Fierro RBC 4.13 106/ul Critically low 4.20-5.40 [facility] Comment on above: Performed By: #### P T #### [facility] [address] [place] [address] Dr. Tg Fierro WBC 6.7 103/ul Normal 4.0-11.0 [facility] Comment on above: Performed By: #### P T #### [facility] [address] [place] [address] Dr. Tg Fierro GLYCOHEMOGLOBIN A1Con 2021 ADA RECOMMENDATION SEE BELOW Normal [facility] Comment on above: Result Comment: ADA RECOMMENDED LIMIT 4.0 - 6.0 ADA THERAPEUTIC TARGET < 7.0 ACTION SUGGESTED > 7.0 Performed By: #### A 1C #### [facility] [address] [place] [address] Dr. Tg Fierro Glucose [Mass/Vol] 151 mg/dL Normal [facility] Comment on above: Performed By: #### A 1C #### [facility] [address] [place] [address] Dr. Tg Fierro HbA1c (Bld) [Mass fraction] 6.9 % Critically high 4.5-6.2 [facility] Comment on above: Performed By: #### A 1C #### [facility] [address] [place] [address] Dr. Tg Fierro PROF 14(COMP METB)on 022 Albumin [Mass/Vol] 3.8 g/dL Normal 3.4-5.0 [facility] Comment on above: Performed By: #### P T #### [facility] [address] [place] [address] Dr. Tg Fierro Albumin/Globulin [Mass ratio] 1.3 {ratio} Normal [facility] Comment on above: Performed By: #### P T #### [facility] [address] [address] [address] Tg Fierro ALP [Catalytic activity/Vol] 43 U/L Critically low 46-116 [facility] Comment on above: Performed By: #### P T #### [facility] [address] [place] [address] Dr. Tg Fierro ALT [Catalytic activity/Vol] 19 U/L Normal 14-59 [facility] Comment on above: Performed By: #### P T #### [facility] [address] [place] [address] Dr. Tg Fierro Anion gap [Moles/Vol] 13.7 mmol/L Normal [facility] Comment on above: Performed By: #### P T #### [facility] [address] [place] [address] Dr. Tg Fierro AST [Catalytic activity/Vol] 11 U/L Critically low 15-37 [facility] Comment on above: Performed By: #### P T #### [facility] [address] [place] [address] Dr. Tg Fierro Bilirubin [Mass/Vol] 0.4 mg/dL Normal 0.2-1.0 [facility] Comment on above: Performed By: #### P T #### [facility] [address] [place] [address] Dr. Tg Fierro Calcium [Mass/Vol] 9.1 mg/dL Normal 8.5-10.1 [facility] Comment on above: Performed By: #### P T #### [facility] [address] [place] [address] Dr. Tg Fierro Chloride [Moles/Vol] 104 mmol/L Normal 98-107 [facility] Comment on above: Performed By: #### P T #### [facility] [address] [place] [address] Dr. Tg Fierro CO2 [Moles/Vol] 28.5 mmol/L Normal 21.0-32.0 [facility] Comment on above: Performed By: #### P T #### [facility] [address] [place] [address] Dr. Tg Fierro Creatinine [Mass/Vol] 0.77 mg/dL Normal 0.55-1.02 [facility] Comment on above: Performed By: #### P T #### [facility] [address] [place] [address] Dr. Tg Fierro EGFR-AF MARTINIQUAIS >60 Normal >=60 [facility] Comment on above: Performed By: #### P T #### [facility] [address] [place] [address] Dr. Tg Fierro EGFR-NON AF MARTINIQUAIS >60 Normal >=60 [facility] Comment on above: Performed By: #### P T #### [facility] [address] [place] [address] Dr. Tg Fierro Globulin (S) [Mass/Vol] 3.0 g/dL Normal [facility] Comment on above: Performed By: #### P T #### [facility] [address] [place] [address] Dr. Tg Fierro Glucose [Mass/Vol] 124 mg/dL Critically high 74-106 [facility] Comment on above: Performed By: #### P T #### [facility] [address] [place] [address] Dr. Tg Fierro Potassium [Moles/Vol] 4.2 mmol/L Normal 3.5-5.1 [facility] Comment on above: Performed By: #### P T #### [facility] [address] [place] [address] Dr. Tg Fierro Protein [Mass/Vol] 6.8 g/dL Normal 6.4-8.2 [facility] Comment on above: Performed By: #### P T #### [facility] [address] [place] [address] Dr. Tg Fierro Sodium [Moles/Vol] 142 mmol/L Normal 136-145 [facility] Comment on above: Performed By: #### P T #### [facility] [address] [address] [address] Tg Fierro Urea nitrogen [Mass/Vol] 12.0 mg/dL Normal 7.0-18.0 [facility] Comment on above: Performed By: #### P T #### [facility] [address] [address] [address] Tg Fierro Urea nitrogen/Creatinine [Mass ratio] 15.6 mg/mg Normal [facility] Comment on above: Performed By: #### P T #### [facility] [address] [address] [address] Tg Fierro SED RATE [facility] 2021 SED RATE 8 mm/hr Normal <=30 [facility] Comment on above: Performed By: #### C MP #### [facility] [address] [address] [address] Tg Fierro COVID Quick Testingon 2020 Result Positive [facility] Other Vital Signs Date Time Vital Sign Value Performing Clinician Facility 08-13-2023 10:47-0500 Blood Pressure Location Renato SANTACRUZ [facility] 08-13-2023 10:47-0500 Diastolic blood pressure 62 mm[Hg] Renato SANTACRUZ [facility] 08-13-2023 10:47-0500 Heart rate 82 /min Renato SANTACRUZ [facility] 08-13-2023 10:47-0500 Respiratory rate 16 /min Renato SANTACRUZ [facility] 08-13-2023 10:47-0500 Systolic blood pressure 105 mm[Hg] Renato SANTACRUZ [facility] 08-07-2023 09:48-0500 Body height 160 cm Jayme Perez MD Work Phone: [facility] 08-07-2023 09:48-0500 Body mass index (BMI) [Ratio] 24.45 kg/m2 Jayme Perez MD Work Phone: [facility] 08-07-2023 09:48-0500 Body weight 62.6 kg Jayme Perez MD Work Phone: [facility] 08-07-2023 09:48-0500 Heart rate 57 /min Jayme Perez MD Work Phone: [facility] 08-07-2023 09:48-0500 SaO2% (BldA) [Mass fraction] 98 % Jayme Perez MD Work Phone: [facility] 07-25-2023 09:20-0500 Body height 160.02 cm Lou Glover Other [facility] Other 07-25-2023 09:20-0500 Body mass index (BMI) [Ratio] 23.91 kg/m2 Lou Glover Other [facility] Other 07-25-2023 09:20-0500 Body temperature 97.7 [degF] Lou Glover Other [facility] Other 07-25-2023 09:20-0500 Body weight 61.24 kg Lou Glover Other [facility] Other 07-25-2023 09:20-0500 Diastolic blood pressure 74 mm[Hg] Lou Glover Other [facility] Other 07-25-2023 09:20-0500 Respiratory rate 18 /min Lou Glover Other [facility] Other 07-25-2023 09:20-0500 SaO2% (BldA) [Mass fraction] 96 % Lou Glover Other [facility] Other 07-25-2023 09:20-0500 Systolic blood pressure 120 mm[Hg] Lou Glover Other [facility] Other 03-26-2023 13:15-0400 Body height 160.02 cm MD Jayme Perez Work Phone: [facility] 03-26-2023 13:15-0400 Body temperature 98.2 [degF] MD Jayme Perez Work Phone: [facility] 03-26-2023 13:15-0400 Body weight 66 kg MD Jayme Perez Work Phone: [facility] 03-26-2023 13:15-0400 Diastolic blood pressure 71 mm[Hg] MD Jayme Perez Work Phone: [facility] 03-26-2023 13:15-0400 Heart rate 87 /min MD Jayme Perez Work Phone: [facility] 03-26-2023 13:15-0400 Respiratory rate 16 /min MD Jayme Perez Work Phone: [facility] 03-26-2023 13:15-0400 SaO2% (BldA) [Mass fraction] 97 % MD Jayme Perez Work Phone: [facility] 03-26-2023 13:15-0400 Systolic blood pressure 117 mm[Hg] MD Jayme Perez Work Phone: [facility] 05-21-2021 13:15-0500 Body height 160.02 cm Astrid Baker Other [facility] Other 05-21-2021 13:15-0500 Body mass index (BMI) [Ratio] 23.91 kg/m2 Astrid Baker Other [facility] Other 05-21-2021 13:15-0500 Body temperature 97.3 [degF] Astrid Baker Other [facility] Other 05-21-2021 13:15-0500 Body weight 61.24 kg Astrid Baker Other [facility] Other 05-21-2021 13:15-0500 SaO2% (BldA) [Mass fraction] 94 % Astrid Baker Other [facility] Other Encounters Encounter Date Encounter Type Care Provider Facility Start: 07-12-2024 ambulatory Williams SHEPHERD Facility : [facility] Start: 10-14-2023 ambulatory [facility] Start: 08-14-2023 ambulatory Renato SANTACRUZ Facili ty:[id number] Start: 08-13-2023 End: 08-14-2023 ambulatory Renato SANTACRUZ Facility:[facility] Start: 08-13-2023 End: 08-13-2023 Patient encounter procedure Renato SANTACRUZ [facility] Start: 08-07-2023 End: 08-07-2023 ambulatory JAMYE PEREZ Not Available Start: 08-07-2023 End: 08-07-2023 Office outpatient visit 25 minutes Jayme Perez MD Work Phone: [facility] Comment on above: Chronic diastolic he art failure (CMS/HCC) (Primary Dx); 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 (CMS/HCC); Type 2 diabetes mellitus with stage 3a chronic kidney disease, without long-term current use of insulin (HCC) (CMS/HCC); Stage 3a chronic kidney disease (HCC) (CMS/HCC); Microalbuminuria; Former smoker; 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, adult; long-term current use of anticoagulant; Psoriatic arthropathy ([facility]/HCC); Gastroesophageal reflux disease without esophagitis Start: 07-30-2023 End: 07-30-2023 ambulatory JAYME PEREZ Not Available Start: 07-25-2023 End: 07-25-2023 ambulatory Lou Glover Other [facility] Other Start: 07-25-2023 Office outpatient vi sit 25 minutes Lou Glover [facility] Start: 07-10-2023 End: 07-10-2023 ambulatory FELICIAZULEIMA FARMER Not Available Start: 07-02-2023 End: 07-02-2023 ambulatory FELICIA D ZAHLER Not Available Start: 06-25-2023 End: 06-25-2023 ambulatory FELICIA D ZAHLER Not Available Start: 06-18-2023 End: 06-18-2023 ambulatory FELICIA D ZAHLER Not Available Start: 04-07-2023 End: 04-07-2023 ambulatory Williams Shepherd Facility:[facility] Start: 04-07-2023 End: 04-07-2023 Departed Referred MD Jayme Perez Work Phone: [facility] [place] Start: 04-07-2023 End: 04-08-2023 ambulatory MD Jayme Perez Work Phone: [facility] Work Phone: Start: 03-26-2023 End: 03-26-2023 ambulatory Williams Shepherd Facility:[facility] Start: 03-26-2023 End: 03-26-2023 Patient encounter procedure MD Jayme Perez Work Phone: [id number] Work Phone: Start: 03-20-2023 End: 03-21-2023 ambulatory Williams SHEPHERD Facility:[facility] Start: 03-20-2023 End: 03-20-2023 Lab Drop off Williams SHEPHERD [facility] Start: 03-20-2023 End: 03-20-2023 Patient encounter procedure Williams SHEPHERD [facility] Start: 02-03-2023 End: 02-04-2023 ambulatory Williamschilo SHEPHERD Facility: [facility] Start: 11-11-2022 End: 12-11-2022 [...] 05-21-2021 End: 05-21-2021 ambulatory Astrid Baker Other [facility] Other Start: 05-21-2021 Office outpatient vi sit 15 minutes Astrid Baker [facility] Procedures Date Procedure Procedure Detail Performing Clinician Start: 08-26-2019 Extracorporeal shock wave lithotripsy of calculus of kidney Williams CORA Start: 04-12-2016 Cystoscopic laser lithotripsy of ureteric [...] stent into ureter Williams SHEPHERD Abdominal hysterectomy Patjarda SANTACRUZ Appendectomy Renato SANTACRUZ Extraction of cataract Patri astrid SANTACRUZ Partial lobectomy of lung Pa andreyk SANTACRUZ Tonsillectomy Renato SANTACRUZ Plan of Treatment Date Care Activity Detail Author Start: 05-19-2025 Glaucoma screening Diabetes: Retinopathy Screening [facility] Start: 05-22-2024 Medicare Annual Wellness (AWV) Medicare Annual Wellness (AWV) [facility] Start: 09-01-2023 End: 09-01-2023 Patient encounter procedure 09/01/2023 10:30 AM EST Office Visit [facility] [address] [place] [id number] Felicia Farmer, DO [address] [place] [address] [facility] Start: 05-06-2023 Hemoglobin A1c measurement Diabetes: Hemoglobin A1C [facility] Start: 04-07-2023 Abdomen endoscopy OR Cysto/Retro/Stent/Stone/ Holmium Laser (Right) [facility] Start: 03-14-2023 Influenza vaccination Influenza Vaccine (#1) [facility] Start: 1951 Pneumococcal Vaccine: 65+ Years (1 - PCV) Pneumococcal Vaccine: 65+ Years (1 - PCV) [facility] Immunizations Immunization Date Immunization Notes Care Provider Yaya oswald NEGATED: Highlighted row has not occurred!08-13-2023 influenza virus vaccine, unspecified formulation Renato SANTACRUZ [facility] NEGATED: Highlighted row has not occurred!08-13-2023 SARS-CoV-2 mRNA (tozinameran 5y-11y) vaccine Renato Scopis [facility] NEGATED: Highlighted row has not occurred!09-21-2019 influenza virus vaccine, live, attenuated, for intranasal use [employer] [facility] NEGATED: Highlighted row has not occurred!08-20-2019 influenza virus vaccine, live, attenuated, for intranasal use [employer] [facility] Payers Date Payer Category Payer Self-pay [id number] 2022 Medicare [id number] 2022 Unknown [employer] [id number] 2022-Present [address] [address] [place] [address] [id number] 2002 Medicare MEDICARE MEDICAR E PART B [id number] 2002-[place] [address] [address] Medicare [id number] 1959 Medicare [id number] 1959 Unknown [id number] 1946 Unknown [id number] 2.16.840.1.109721.3.579.2.59 3 1946 Unknown [id number] 2.16.840.1.603537.3.579.2.59 3 1946 Unknown [id number] 2.16.840.1.252686.3.579.2.59 3 1946 Unknown [id number] 2.16.840.1.397565.3.579.2.59 3 1946 Unknown [id number] 2.16.840.1.752276.3.579.2.59 3 1946 Unknown [id number] 2.16.840.1.868808.3.579.2.59 3 1946 Unknown [id number] 2.16.840.1.487131.3.579.2.59 3 1946 Unknown [id number] 2.16.840.1.002676.3.579.2.59 3 1946 Unknown [id number] 2.16.840.1.281206.3.579.2.59 3 1946 Unknown [id number] 2.16.840.1.438325.3.579.2.59 3 1946 Unknown [id number] 2.16.840.1.464252.3.579.2.59 3 1946 Unknown [id number] 2.16.840.1.983670.3.579.2.59 3 1946 Unknown [id number] 2.16.840.1.086917.3.579.2.59 3 1946 Unknown [id number] 2.16.840.1.954894.3.579.2.12 59 1946 Unknown [id number] 2.16.840.1.528506.3.579.2.12 59 1946 Unknown [id number] 2.16.840.1.447032.3.579.2.12 59 1946 Unknown [id number] 2.16.840.1.072222.3.579.2.12 59 1946 Unknown [id number] 2.16.840.1.311079.3.579.2.12 59 1946 Unknown [id number] 2.16.840.1.471264.3.579.2.12 59 1946 Unknown [id number] 2.16.840.1.552722.3.579.2.72 7 1946 Unknown [id number] 2.16.840.1.267265.3.579.2.72 7 1946 Unknown [id number] 2.16.840.1.861877.3.579.2.72 7 1946 Unknown [id number] 2.16.840.1.075274.3.579.2.72 7 1946 Unknown [id number] 2.16.840.1.658209.3.579.2.72 7 1946 Unknown [id number] 2.16.840.1.827725.3.579.2.72 7 Unknown [id number] 2.16.840.1.349153.3.579.2.53 1 Unknown [id number] 2.16.840.1.317975.3.579.2.53 1 Social History Date Type Detail Facility Sex Assigned At [facility] Other Start: 02-03-2023 End: 08-07-2023 Tobacco smoking status Ex-smoker (finding) [facility] Tobacco smoking status Never [facility] Start: 12-11-2022 End: 05-22-2023 Sex Assigned At Female [facility] Start: 1945 Sex Assigned At Female [facility] End: 07-14-1986 History of tobacco use Current smoker [facility] End: 07-14-1986 History of tobacco use Cigarette Smoker [facility] Start: 08-07-2023 Tobacco use and exposure Smokeless tobacco non-user [facility] Start: 08-07-2023 Alcohol intake Ex-drinker (finding) [facility] Start: 12-11-2022 End: 05-22-2023 History of Social function [facility] Within the last year , have you been afraid of your partner or ex-partner? No [facility] Are you now , , , , never or living with a partner? [facility] How often to you hav e a drink containing alcohol? Never [facility] Do you feel stress - tense, restless, nervous, or anxious, or unable to sleep at night because your mind is troubled all the time - these days [OSQ] To some extent [facility] (I/We) worried wheth er (my/our) food would run out before (I/we) got money to buy more. Never true [facility] Start: 01-24-2023 Education 21 [facility] Start: 01-06-2023 Gender identity Identifies as female gender (finding) [facility] Functional Status Date Assessment Result Facility 08-13-2023 Functional Status N/A [facility] Clinical Notes 02-21-2022 to 08-13-2023 Jayme Perez MD - 08/07/2023 10:00 AM EST Note Date & Type Note Facility 08-13-2023 Hospital Discharge instructions Patient Education 08/13/2023 11:34:50 Laser Therapy [...] including vitamins, herbs, eye drops, creams, and pkmn-moz-gwgbnvb medicines. Any problems you or family members [...] provider tells you to take them. ?Taking megh-idd-havzqnr medicines, vitamins, herbs, and supplements. Eating and [...] provider. Document Revised: 11/06/2022 Document Reviewed: 03/04/2022 [email or web address] Patient Education 2022 [employer]. Follow Up Care 08/12/2023 14:37:00 With:ANGELITO AGUIAR, Renato Arzola, URL Address: [facility] [address] , [place] [address]- [phone] When: Unknown Comments:sched ureteroscopyf/u w/ [facility]PC scheduled 10/14/23 [facility] 08-07-2023 History of Present illness Narrative Patient ID: Wilda Sen is a 78 y.o. female who presents for: Arrhythmia Patient who presents for follow-up of paroxysmal atrial fibrillation. Symptoms include dizziness and palpitations. Onset was several years ago, and have been stable since that time. The patient denies chest pain and syncope. Diabetes Mellitus Patient presents for follow up of diabetes. Current symptoms include: none. Symptoms have stabilized. Patient denies paresthesia of the feet, polydipsia, polyuria, and visual disturbances. Evaluation to date has included: hemoglobin A1C. Home sugars: patient does not check sugars. Review of Systems Constitutional: Negative for activity change and fatigue. Respiratory: Negative for cough, shortness of breath and wheezing. Cardiovascular: Positive for palpitations. Negative for chest pain and leg swelling. Neurological: Negative for light-headedness and headaches. Objective The patient is pleasant and in no acute distress. The head is normocephalic and atraumatic. Both eyes appear grossly normal without obvious lid pathology or icterus. Both ears hearing is grossly intact. The neck is supple and trachea is midline. No masses are appreciated. The anterior cervical lymphatics demonstrates shoddy bilateral nontender lymphadenopathy. There is no supraclavicular lymphadenopathy. The heart is fairly regular rate and rhythm without S3, S4. No murmur. The patient has normal respiratory pattern. The breath sounds are Diffusely decreased but symmetrical without evidence of wheezing, rhonchi, or rales. The chest is normal shape. The skin is warm and dry. The lower extremities have trace edema. Neurologic screening exam is nonfocal. The patient is alert. There is no overt gross evidence of cognitive impairment The patient has good eye contact and speech is clear. [facility] Result Encounter on 08/05/2023 Component Date Value Ref Range Status TRIGLYCERIDES 08/05/2023 243 (H) <=150 mg/dL Final CHOLESTEROL 08/05/2023 193 <=200 mg/dL Final HDL CHOLESTEROL 08/05/2023 87 (H) 40 - 60 mg/dL Final Comment: > or =60 mg/dl - LOW CARDIOVASCULAR RISK <40 mg/dl - HIGH CARDIOVASCULAR RISK LDL CHOLESTEROL CALCULATED 08/05/2023 58.0 mg/dL Final Comment: <100 mg/dl OPTIMAL 100-129 mg/dl NEAR OR ABOVE OPTIMAL 130-159 mg/dl BORDERLINE HIGH 160-189 mg/dl HIGH >190 mg/dl VERY HIGH VLDL CHOLESTEROL 08/05/2023 48.6 mg/dL Final CHOL HDL RATIO 08/05/2023 2.2 Final Comment: 3.3 - 4.4 LOW RISK 4.4 - 7.1 AVERAGE RISK 7.1 - 11.0 MODERATE RISK >11.0 HIGH RISK PROTHROMBIN TIME 08/05/2023 36.1 (H) 9.0 - 11.6 sec Final [facility] INR 08/05/2023 3.67 Final Comment: DESIRED INR: 2.0-3.0 CONDITIONS NOT LISTED BELOW 2.5-3.5 FOR PROSTHETIC HEART VALVE REPLACEMENT 2.5-3.5 RECURRENT THROMBOSIS GLYCOHEMOGLOBIN A1C 08/05/2023 7.2 (H) 4.5 - 6.2 % Final Comment: ADA RECOMMENDED LIMIT 4.0 - 6.0 ADA THERAPEUTIC TARGET < 7.0 ACTION SUGGESTED > 7.0 ESTIMATED AVERAGE GLUCOSE 08/05/2023 160 mg/dL Final [facility] Result Encounter on 07/22/2023 Component Date Value Ref Range Status PROTHROMBIN TIME 07/22/2023 32.7 (H) 9.0 - 11.6 sec Final TBH INR 07/22/2023 3.30 Final Comment: DESIRED INR: 2.0-3.0 CONDITIONS NOT LISTED BELOW 2.5-3.5 FOR PROSTHETIC HEART VALVE REPLACEMENT 2.5-3.5 RECURRENT THROMBOSIS SODIUM 07/22/2023 137 136 - 145 mmol/L Final POTASSIUM 07/22/2023 3.7 3.5 - 5.1 mmol/L Final CHLORIDE 07/22/2023 101 98 - 107 mmol/L Final CARBON DIOXIDE 07/22/2023 27.5 21.0 - 32.0 mmol/L Final ANION GAP 07/22/2023 12.2 Final GLUCOSE 07/22/2023 221 (H) 74 - 106 mg/dL Final BLOOD UREA NITROGEN 07/22/2023 14.0 7.0 - 18.0 mg/dL Final CREATININE 07/22/2023 0.98 0.55 - 1.02 mg/dL Final TBH EGFR-AF MARTINIQUAIS 07/22/2023 >60 >=60 Final [facility] EGFR-NON AF MARTINIQUAIS 07/22/2023 55 (L) >=60 Final BUN CREATININE RATIO 07/22/2023 14.3 Final CALCIUM 07/22/2023 9.2 8.5 - 10.1 mg/dL Final BILIRUBIN TOTAL 07/22/2023 0.4 0.2 - 1.0 mg/dL Final ASPARTATE AMINO TRANSFERASE 07/22/2023 17 15 - 37 U/L Final ALANINE AMINOTRANSFERASE 07/22/2023 25 14 - 59 U/L Final ALKALINE PHOSPHATASE 07/22/2023 54 46 - 116 U/L Final TOTAL PROTEIN 07/22/2023 7.2 6.4 - 8.2 g/dL Final ALBUMIN LEVEL 07/22/2023 3.6 3.4 - 5.0 g/dL Final GLOBULIN 07/22/2023 3.6 g/dL Final ALBUMIN GLOBULIN RATIO 07/22/2023 1.0 Final Visit Vitals Pulse 57 Ht 5' 3 Wt 138 lb SpO2 98% BMI 24.45 kg/m OB Status Postmenopausal Smoking Status Former BSA 1.67 m Allergies Allergen Reactions Hydrocodone Bit-Homatrop Mbr Dizziness Ketorolac Nausea Only Other Reaction(s): Unknown Severe Latex Other Reaction(s): Blister Medical Adhesive Remover Other Reaction(s): facial edema, redness/metrogel Metronidazole Other Reaction(s): facial edema, redness/metrogel Pioglitazone Other Reaction(s): Unknown, Vomiting Sulfa Antibiotics Other Reaction(s): rash swelling Ciprofloxacin Other Reaction(s): bennett, Unknown Nsaids Other Reaction(s): Abdominal Pain, Unknown Current Outpatient Medications Medication Instructions acarbose (PRECOSE) 100 mg, Oral, 3 times daily with meals acetaminophen (TYLENOL) 325 mg, Oral, Every 6 hours PRN, 2 tables as needed orally every 6 hours albuterol HFA 90 mcg/act inhaler 2 puffs, Inhalation, 4 times daily calcium citrate 250 mg, Oral, 3 times daily, 1 tablet orally three times a day cephalexin (KEFLEX) 500 mg, Oral, 3 times daily cinnamon 500 mg, Oral, 2 times daily, 1 capsule orally twice a day esomeprazole (NEXIUM) 20 mg, Oral, Daily, 1 capsule orally once a day metFORMIN (GLUCOPHAGE) 1,000 mg, Oral, 2 times daily with meals ondansetron ODT (ZOFRAN-ODT) 4 mg, Oral, Every 8 hours PRN oxyCODONE-acetaminophen (Percocet) 5-325 MG tablet 1 tablet, Oral, Every 6 hours PRN Spacer/Aero-Holding Chambers (BreatheRite Leonor Spacer Adult) misc 2 puffs, Does not apply, 4 times daily PRN tamsulosin (FLOMAX) 0.4 mg, Oral, Daily Vitamin B12 3,000 mcg, Sublingual, Daily warfarin (Coumadin) 1 MG tablet Take 1 tablet in the evening for a total of 3.5mg warfarin (Coumadin) 2.5 MG tablet Take 1 tablet in the evening for a total of 3.5mg Assessment/Plan Diagnoses and all orders for this visit: Chronic diastolic heart failure (CMS/HCC) Chronic problem, stable, currently asymptomatic and Stable medical under control. 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 (CMS/HCC) Chronic problem, stable, currently asymptomatic and Stable medical under control. Type 2 diabetes mellitus with stage 3a chronic kidney disease, without long-term current use of insulin (HCC) (CMS/HCC) - metFORMIN (Glucophage) 1000 MG tablet; Take 1 tablet (1,000 mg) by mouth in the morning and 1 tablet (1,000 mg) in the evening. Take with meals. - acarbose (Precose) 100 MG tablet; Take 1 tablet (100 mg) by mouth in the morning and 1 tablet (100 mg) at noon and 1 tablet (100 mg) in the evening. Take with meals. Chronic problem, slightly greater than goal at 7.2. We had a discussion versus further medication versus what she says was bad holiday eating choices. We have agreed to continue her current medications, will she has agreed to limit the treats. Stage 3a chronic kidney disease (HCC) (CMS/HCC) New, Chronic problem, unstable, progressing, defining the end organ damage of the nephropathy. I stressed the importance of keeping blood pressure and blood sugar to goal, staying well hydrated, and aerobic exercises as tolerated. Continue to monitor longitudinally. Microalbuminuria Chronic problem, defining the nephropathy, with significant risk, uncertain progression requiring longitudinal monitoring, and moderate decision making. Microalbuminuria is a term to describe a moderate increase in the level of urine albumin. Normally, the kidneys filter albumin, so if the kidney leaks small amounts of albumin and the albumin is found in the urine, then it is a marker of kidney disease. Microalbuminuria is a strong and independent indicator of increased cardiovascular risk among individuals with and without diabetes. Therefore, microalbuminuria can be used for stratification of increased risk for cardiovascular disease. 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 documented in this encounter [facility] 07-25-2023 Evaluation note Encounter Date Diagnosis [...] care as directed rx of steroid and [place], cool mist humidification. May use Tylenol as directed. Immediate eval for signs of respiratory distress, difficulty breathing poor PO intake, signs of dehydration, fever, or other concerning symptoms. Otherwise, follow up with PCP in 2-3 days. Patient verbalizes understanding and is agreeable to treatment plan. Patient sent home in stable condition. [employer] Other 08-11-2022 NotePROCEDURE: XR FOOT LT MIN 3 VIEWS COMPARISON: None. HISTORY: Pain in left foot FINDINGS: BONES:No acute fracture or dislocation. Mild enthesopathic spurring of the calcaneus. SOFT TISSUES:Negative. No visible soft tissue swelling. EFFUSION:None visible. OTHER: Negative. IMPRESSION: Mild enthesopathic spurring of the calcaneus Electronically authenticated by: BLANCA ZAVALA Date: 2022-02-21 07:28[facility] Future App[facility]ments Appointment Date:07/12/2024 10:45:00 AM Scheduled Provider:[facility]PHRED [facility] Type:[facility]O Office Visit [facility] Evaluation + Plan note Future Appointments Appointment Date:07/12/2024 10:45:00 AM Scheduled Provider:Williams SHEPHERD [facility] Type:[facility]O Office Visit Diagnostic Tests Pending * Calculi Analysis [facility]ments Appointment Date:10/14/2023 09:15:00 AM Scheduled Provider:Williams SHEPHERD MD Location:[facility] Appointment Type:URO Office Visit Appointment Date:07/12/2024 10:45:00 AM Scheduled Provider:Williams SHEPHERD MD Location:[facility] Appointment Type:URO Office Visit [facility] evaluation [facility]St[facility] [employer] Other evalupnvps noteNo assessment information available [facility] Work Phone: evaluation note* Diagnosis Chronic diastolic heart failure (CMS/HCC)- Primary Chronic diastolic heart failure 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 (CMS/HCC) Atrial fibrillation Type 2 diabetes mellitus with stage 3a chronic kidney disease, without long-term current use of insulin (HCC) (CMS/HCC) Stage 3a chronic kidney disease (HCC) (CMS/HCC) Microalbuminuria Proteinuria Former smoker Personal history of tobacco use, presenting hazards to health 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, adult long-term current use of anticoagulant Psoriatic arthropathy (CMS/HCC) Psoriatic arthropathy Gastroesophageal reflux disease without esophagitis Esophageal reflux documented in this encounter [facility] - ReportedNortSt[facility] [employer] Other History general Narrative - Reported* Type Description Date Medical History Arthritis Medical History diabetes mallitus Surgical History cataract surgery [facility] [employer] Other Hospital course Narrative No data available for this section [facility] Discharge instructions No data available for this section [facility] [employer] Progress note No data available for this section [facility] [employer] Summary Purpose Family History Relationship Condition Age at Onset Recorded Date/T ramiro Not Specified Heart disease Unknown father Cystic fibrosis Unknown Advance Directives Advance Directive Response Recorded Date/ Time Advance Directives No May 06, 2017 4:21pm Chief Complaint and Reason for Visit Chief Complaint Kidney Stones Kidney Stones Additional Source Comments INFORMATION SOURCE (unrecogn ized section and content) DATE CREATED AUTHOR 12/20/2022 [facility] DATE CREATED AUTHOR AUTHOR'S ORGANIZ ATION 06/09/2023 [facility] DATE CREATED AUTHOR AUTHOR'S ORGANIZ ATION 08/08/2023 [facility] DATE CREATED AUTHOR AUTHOR'S ORGANIZ ATION 08/16/2023 [facility] Patient Care team informatio n (unrecognized section and content) Team Status: Active Member Role Status Dates Jayme Perez MD Primary Care Provider Active Team Status: Inactive Member Role Status Dates Jayme Perez MD Primary Care Provider Active Williams Shepherd MD Attending Provider Active 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 [employer] provides no warranty or guarantee of the accuracy or completeness of information in this document.
[2023-08-20 10:13] LABS: Calcium 9.1 mg/dL (8.5-10.1); Carbon Dioxide 30.1 mmol/L (21.0-32.0); Chloride 104 mmol/L (98-107); Estimated GFR (African America >60 (>=60); Estimated GFR (Non-African Ame >60 (>=60); Phosphorus 4.1 mg/dL (2.6-4.7); Sodium 141 mmol/L (136-145); Uric Acid 4.4 mg/dL (2.6-6.0)
[2023-08-20 14:53] LABS: Calcium Urine Random 25.3 mg/dL (5.1-21.0); Creatinine Urine Random 72.09 mg/dL (20.00-300.00); Sodium Urine Random 111 mmol/L (30-90)
[2023-08-20 14:55] LABS: Sodium 24 Hour Urine 128 mmol/24h (40-220); Total Volume 24 Hour Urine 1150 mL/24hr
[2023-08-21 10:09] LABS: Uric Acid, Urine 32.9 mg/dL (Not Estab.); Uric Acid,Urine 24hr 378.4 mg/24 hr (88.9-568.5)
[2023-08-21 12:10] LABS: PTH, Intact 19 pg/mL (15-65)
[2023-08-21 12:10] LABS: Magnesium, U 5.8 mg/dL (Not Estab.); Magnesium,Urine 24hr 66.7 mg/24 hr (12.0-293.0); Phosphorus, Urine 27.5 mg/dL (Not Estab.); Phosphorus,Urine 24h 316 mg/24 hr (261-1078)
[2023-08-22 15:09] LABS: Citric Acid, U, 24hr 358 mg/24 hr (320-1240); Citric Acid, Urine 311 mg/L (Undefined)
[2023-08-26 15:10] LABS: Oxalates, Urine 16 mg/L (Undefined); Oxalates, Urine 24hr 18 mg/24 hr (4-31)
== END 2023-08-20 09:07 | disposition home or self-care (01) ==
LOC: LAB 09:06
PROVIDERS: PCP Family Medicine; Visit Provider Urology
DX: N20.0 Calculus of kidney (principal); L40.59 Other psoriatic arthropathy; Z79.899 Other long term (current) drug therapy; I48.0 Paroxysmal atrial fibrillation; Z79.01 Long term (current) use of anticoagulants; Z51.81 Encounter for therapeutic drug level monitoring
CPT/HCPCS: 36415; 81050; 82310; 82340; 82374; 82435; 82507; 82565; 82570; 83735; 83945; 83970; 84100; 84105; 84295; 84300; 84520; 84550; 84560

== ENCOUNTER 2023-09-01 09:24 | Outpatient (OUT) | payer MEDICARE, SELFPAY ==
--- OUTSIDE RECORDS SUMMARY | 2023-09-01 09:30 | XMS_ITS | CCD ---
Author Name Unknown Address [address] [facility] [address] [place] [address] [facility] Care Team Providers Care 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 Name Role Phone Astrid Baker Unavailable CAYETANO, [...] HEMEYER ., DR MCKINNEY Primary Care Unavailable HEMEJAYME ENGLAND Primary Care Physician Unavail able MD Jayme Perez Primary Care Provider [phone] MD Williams Shepherd Attending Provider Williams Shepherd Admitting Unavailable Williams Shepherd Attending Unavailable Jayme Perez Primary Care Unavailable Williams Shepherd Attending Unavailable HemeJayme england Primary Care Unavailable Williams Shepherd Admitting Unavailable Lou Glover Unavailable FELICIA FARMER Attending Unavailable JAYME PEREZ Attending Unavailable HEMERONI, JAYME Hazel Attending Unavailable FELICIA FARMER Attending Unavailable FELICIA FARMER Attending Unavailable FELICIA FARMER Attending Unavailable Kirbyyer Jayme AGUIAR Primary Care Provider [phone] Jayme Perez MD Unavailable Williams SHEPHERD Attending Unavailable Williams SHEPHERD Attending Unavailable Renato SANTACRUZ Attending Unavailable Williams SHEPHERD Attending Unavailable Williams SHEPHERD P Admitting Unavailable Williams SHEPHERD P Attending Unavailable Renato SANTACRUZ Attending Unavailable COOKWilliams P Attending Unavailable Vargas SHEPHERDory P Attending Unavailable Allergies Allergy Classification Reported Allergen(s) Allergy Type Date of Onset Reaction(s) Facility (10 sources) Ciprofloxacin; Translations: [ciprofloxacin] Drug Allergy 02-19-20 anaphylaxis, Unknown (qualifier value) [facility] (1 source) sulfaSALAzine Drug Allergy rash iovox Other (1 source) Ciprofloxacin Drug Allergy 03-30-20 13 [facility] Repository (2 sources) Ketorolac; Translations: [Toradol] Drug Allergy 03-30-20 13 [facility] Repository (2 sources) metroNIDAZOLE; Translations: [MetroGel] Drug Allergy 03-30-20 13 [facility] Repository (1 source) NSAIDs Drug allergy (disorder) 03-30-20 13 [facility] Repository (2 sources) pioglitazone; Translations: [Actos] Drug Allergy 03-30-20 13 [facility] Repository (1 source) Sulfonamides (Antibiotic) Drug allergy (disorder) 03-30-20 13 [facility] Repository (8 sources) Ketorolac; Translations: [ketorolac] Drug Allergy 03-26-20 Unknown (qualifier value), Nausea (finding) [facility] Comment on above: Severe (9 sources) Latex; Translations: [latex] Drug allergy 01-07-20 Blister of skin AND/OR mucosa (finding) [facility] (7 sources) Non-steroidal anti-inflammatory agent; Translations: [NSAIDs] Drug allergy 02-19-20 Unknown (qualifier value) [facility] (9 sources) pioglitazone; Translations: [pioglitazone] Drug Allergy 01-07-20 23 Unknown (qualifier value) [facility] (4 sources) Sulfonamides (Antibiotic); Translations: [sulfa drugs] Drug allergy Unknown (qualifier value) [facility] (6 sources) metroNIDAZOLE; Translations: [metronidazole] Drug Allergy 02-19-20 Redness of Skin [facility] (2 sources) Sulfonamides (Antibiotic); Translations: [Sulfa (Sulfonamide Antibiotics)] Allergy to substance 03-26-20 Rash [facility] (2 sources) NSAIDS (Non-Steroidal Anti-Inflamma; Translations: [NSAIDS (Non-Steroidal Anti-Inflamma] Allergy to substance 03-26-20 Anaphylaxis [facility] (1 source) Ciprofloxacin Drug Allergy 03-26-20 [facility] Repository (1 source) Ketorolac Drug Allergy 03-26-20 [facility] Repository (1 source) pioglitazone Drug Allergy 03-26-20 [facility] Repository (1 source) Non-steroidal anti-inflammatory agent Drug allergy rash iovox Other (4 sources) Substance with sulfonamide structure and antibacterial mechanism of action (substance) Drug allergy 02-19-20 rash iovox Other (3 sources) Ketorolac Allergy to substance 01-07-20 Nausea Only [facility] (3 sources) Hydrocodone Bit-Homatrop Mbr Propensity to adverse reactions 08-07-19 Dizziness [facility] (3 sources) Medical Adhesive Remover Drug Allergy 02-19-20 [facility] Medications Current Medications Medication Drug Class(es) Dates Sig (Normalized) Sig (Original) acarbose 100 mg oral tablet (11 sources) alpha-Glucosidase Inhibitor Start: 08-17-2019 End: 02-03-2024 acarbose (Precose) 100 MG tablet Indications: Type 2 diabetes mellitus with stage 3a chronic kidney disease, without long-term current use of insulin (HCC) ([facility]) Take 1 tablet (100 mg) by mouth in the morning and 1 tablet (100 mg) at noon and 1 tablet (100 mg) in the evening. Take with meals. 270 tablet 1 08/07/2023 02/03/2024 Active Start: 08-17-2019 acarbose Oral, TID, Refills(s) 0 Start Date: 08/17/19 Status: Ordered Acarbose Active acetaminophen 325 mg oral ta blet (6 sources) Start: 03-26-2023 Acetaminophen (Tylenol) 325 mg [...] / oxyCODONE hydrochloride 5 mg oral tablet (2 sources) Opioid Agonist Start: 08-12-2023 take 1 tablet by mouth every six hours Percocet 5 mg-325 mg oral tablet 1 tab(s), Oral, q6hr, Refill(s) 0 Start Date: 08/13/23 Status: Ordered [id number] actuat albuterol 0.09 mg/actuat metered dose inhaler (5 sources) beta2-Adrenergi c Agonist Start: 07-16-2023 End: [...] Ordered calcium citrate 950 mg oral tablet (7 sources) Start: 03-26-2023 take 200 mg by [...] 0 Active cephalexin 500 mg oral capsule (2 sources) Cephalosporin Antibacterial Start: 08-12-2023 End: 08-20-2023 take 1 mg by mouth [...] 11:00pm cinnamon bark 500 mg oral capsule (4 sources) Start: 03-26-2023 take 1 capsule by [...] Date: 09/19/20 Status: Ordered Cyanocobalamin-Liver Extract (Vitamin Z42-Ltqjv) Tablet (1 source) Start: 03-26-2023 take 1 tablet by mouth once daily Cyanocobalamin-Liver Extract (Vitamin M54-Tkqwr) Tablet Active 1 TAB PO every day at noon March 25, 2023 11:00pm dextromethorphan hydrobromide 1.5 mg/ml / pyrilamine maleate 1.5 mg/ml oral solution (1 source) Uncompetitive E-dxuzth-J-aspar muñoz Receptor Antagonist, Sigma-1 Agonist Start: 07-25-2023 take 10 mL by mouth every eight hours Wilmar DM 7.5-7.5 MG/5ML 10 mL Orally every 8 hours for 5 days Jul, Active esomeprazole 20 mg oral tablet (7 sources) Proton Pump Inhibitor Start: 08-17-2019 take 20 mg by mouth once daily Esomeprazole Magnesium Active 20 MG PO every day at noon March 25, 2023 11:00pm Start: 08-17-2019 Nexium Oral, D aily, Refills(s) 0 Start Date: 08/17/19 Status: Ordered take 1 capsule by [facility] once daily esomeprazole (NexIUM) [address] [...] Active metFORMIN hydrochloride 1000 mg oral tablet (11 sources) Biguanide Start: 08-17-2019 End: 02-03-2024 take 1 tablet by mouth in the morning metFORMIN (Glucophage) 1000 MG tablet Indications: Type 2 diabetes mellitus with stage 3a chronic kidney disease, without long-term current use of insulin (HCC) (CMS/HCC) Take 1 tablet (1,000 mg) by mouth in the morning and 1 tablet (1,000 mg) in the evening. Take with meals. 180 tablet 1 08/07/2023 02/03/2024 Active Start: 08-17-2019 metformin Oral , Refills(s) 0 [...] Start Date: 09/19/20 Status: Ordered Start: 09-19-2020 Misc Medicatio n ironchlate Start Date: 09/19/20 Status: Ordered Multi Vitamins oral tablet (3 sources) Start: 09-19-2020 take 1 tablet by mouth once daily Multi Vitamins oral tablet 1 tab(s), Oral, Daily, Refill(s) 0 Start Date: 09/19/20 Status: Ordered Start: 09-19-2020 Multi Vitamins oral tablet Oral, Daily, Refill(s) 0 Start Date: 09/19/20 Status: Ordered ondansetron 4 mg oral tablet (2 sources) Serotonin-3 Receptor Antagonist Start: 08-13-2023 ondansetron 4 mg Tab mg tab(s), Oral, As Directed, Refills(s) 0 Start Date: 08/13/23 Status: Ordered Start: 08-12-2023 take 1 tablet by valdo th every eight hours as needed for nausea ondansetron ODT (Zofran-ODT) 4 MG disintegrating tablet Take 4 mg by mouth every 8 (eight) hours if needed for nausea 0 08/12/2023 Active predniSONE 2.5 mg oral tablet (6 sources) [...] Spacer/Aero-Holding Chambers (BreatheRite Leonor Spacer Adult) misc (3 sources) Start: 07-16-2023 Spacer/Aero-Holding Chambers (BreatheRite Leonor Spacer Adult) misc Indications: Chronic obstructive pulmonary disease with acute exacerbation (CMS/HCC) 2 puffs 4 (four) times a day as needed (sob and cough) 1 each 0 07/16/2023 Active tamsulosin hydrochloride 0.4 mg oral capsule (2 sources) alpha-Adrene rgic Sergey Start: 08-13-2023 End: 08-20-2023 take 1 mg by mouth once daily tamsulosin 0.4 mg Cap mg cap(s), Oral, Daily, X 7 day(s), Refills(s) 0 Start Date: 08/13/23 Stop Date: 08/20/23 Status: Ordered Start: 08-12-2023 take 1 capsule by [facility] every twenty-four hours in the morning tamsulosin (Flomax) 0.4 MG 24 hr capsule Take 0.4 mg by mouth in the morning. 0 08/12/2023 Active vitamin B12 (6 sources) Vitamin B12 Start: 08-17-2019 take 3000 [...] Start Date: 08/17/19 Status: Ordered warfarin sodium 2.5 mg oral tablet (10 sources) Vitamin K Antagonist Start: 08-18-2023 End: 08-17-2024 warfarin (Coumadin) 1 MG tablet Indications: 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 (CMS/HCC) Take 1 tablet in the evening for a total of 3.5mg 90 tablet 1 08/18/2023 08/17/2024 Active Start: 08-18-2023 End: 08-17-2024 warfarin (Coumadin) 2.5 MG t ablet Indications: 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 (CMS/HCC) Take 1 tablet in the evening for a total of 3.5mg 90 tablet 1 08/18/2023 08/17/2024 Active Start: 02-03-2023 End: 08-18-2023 take 1 tablet [...] for 5 day(s) May, Not-Taking/PRN Start: 05-21-2021 methylPREDNISolone (3 sources) Corticosteroid Start: 07-25-2023 End: [...] of uterine body 08-17-2019 Episodic Cardiac dysrhythmias (11 sources) 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; Translations: [Atrial fibrillation] Onset: 10-14-2022 Chronic Cataract (9 sources) Bilateral age-related nuclear cataracts; Translations: [Age-related nuclear cataract, bilateral] Onset: 05-19-2023 05-19-2023 Chronic Chronic kidney disease (5 sources) Chronic kidney disease stage 3A ; Translations: [Stage 3a chronic kidney disease (HCC) ([facility]/HCC)] Onset: 12-12-2022 07-30-2023 Chronic Congestive heart failure; nonhypertensive (6 sources) Chronic diastolic (congestive) heart failure; Translations: [Chronic diastolic heart failure] Onset: 09-05-2022 08-18-2023 Chronic Diabetes mellitus with complications (9 sources) Type 2 diabetes mellitus with diabetic chronic kidney disease; Translations: [Type 2 diabetes mellitus] Onset: 08-09-2022 Chronic Diverticulosis and diverticulitis (3 sources) 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; Translations: [Diverticulosis of large intestine without perforation or abscess without bleeding] Onset: 12-12-2022 12-12-2022 Chronic Esophageal disorders (5 sources) Gastroesophageal reflux disease without esophagitis; Translations: [Gastro-esophageal reflux disease without esophagitis] Onset: 12-12-2022 08-18-2023 Chronic Glaucoma (3 sources) Preglaucoma, unspecified, bilateral; Translations: [Preglaucoma, unspecified] Onset: 05-19-2023 05-19-2023 Chronic Heart valve disorders (4 sources) Nonrheumatic aortic (valve) stenosis; Translations: [Aortic valve disorders] Onset: 09-05-2022 12-12-2022 Chronic Immunity disorders (3 sources) Immunosuppression; Translations: [Immunodeficiency, unspecified] Onset: 12-12-2022 12-12-2022 Chronic Menopausal disorders (3 sources) Disorder associated with menstruation AND/OR menopause; Translations: [Menopausal and female climacteric states] Onset: 12-12-2022 12-12-2022 Chronic Mood disorders (3 sources) Depressive disorder 08-17-2019 Chronic Nutritional deficiencies (3 sources) Vitamin D deficiency; Translations: [Vitamin D deficiency, unspecified] Onset: 12-12-2022 12-12-2022 Chronic Osteoporosis (3 sources) Osteoporosis; Translations: [Age-related osteoporosis without current pathological fracture] Onset: 12-12-2022 12-12-2022 Chronic Other aftercare (1 source) hearing screener (current) use of anticoagulants; Translations: [[facility] CURRNT USE ANTICOAGULANTS] Onset: 12-11-2022 Episodic Other aftercare (5 sources) Encounter for therapeutic drug level monitoring; Translations: [ENC THERAPEUTC DRUG LEVL MONITORING] Onset: 10-18-2022 Episodic Other aftercare (1 source) Other shelter (current) drug therapy; Translations: [OTH [facility] CURRENT DRUG THERAPY] Onset: 10-31-2022 Episodic Other aftercare (6 sources) Long-term current use of anticoagulant; Translations: [residential (current) use of anticoagulants] Onset: 07-21-2023 Episodic Other and ill-defined heart disease (4 sources) Cardiomegaly; Translations: [CARDIOMEGALY] Onset: 09-02-2022 Chronic Other and ill-defined heart disease (3 sources) Ventricular hypertrophy ; Translations: [Cardiomegaly] Onset: 12-12-2022 12-12-2022 Chronic Other diseases of kidney and ureters (1 source) Urinary tract obstruction; Translations: [Hydronephrosis with renal and ureteral calculous obstruction] Onset: 08-13-2023 Episodic Other inflammatory condition of skin (5 sources) Other psoriatic arthropathy; Translations: [OTHER PSORIATIC ARTHROPATHY] Onset: 09-25-2022 Chronic Other inflammatory condition of skin (5 sources) Psoriatic arthritis; Translations: [Arthropathic psoriasis, unspecified] Onset: 12-12-2022 08-18-2023 Chronic Other nutritional; endocrine; and metabolic disorders (3 sources) Body mass index 25-29 - overweight 09-18-2021 Episodic Residual codes; unclassified (3 sources) H/O: anticoagulant therapy 09-21-2019 Episodic Residual codes; unclassified (5 sources) Body mass index 20-24 - normal; Translations: [Body mass index (BMI) 24.0-24.9, adult] Onset: 07-30-2023 07-30-2023 Episodic Spondylosis; intervertebral disc disorders; other back problems (6 sources) Degeneration of lumbar intervertebral disc; Translations: [...] Da te Episodic/Chronic Diabetes mellitus without complication (6 sources) Diabetes mellitus; Translations: [Type 1 diabetes mellitus without complication] Onset: 05-19-2023 Resolved: 05-22-2023 08-17-2019 Chronic Genitourinary symptoms and ill-defined conditions (11 sources) Increased frequency of urination; Translations: [Nocturia] Onset: 12-12-2022 09-19-2020 Episodic Heart valve disorders (7 sources) Cardiac murmur, unspecified; Translations: [Heart murmur] Onset: 09-05-2022 08-17-2019 Episodic Immunizations and screening for infectious disease (1 source) Contact with and (suspected) exposure to other viral communicable diseases Onset: 05-21-2021 Resolved: 05-21-2021 Episodic Inflammation; infection of eye (except that caused by tuberculosis or sexually transmitteddisease) (3 sources) Blepharitis of upper and lower eyelids of bilateral eyes; Translations: [Unspecified blepharitis right eye, upper and lower eyelids] Onset: 05-19-2023 05-19-2023 Episodic Mood disorders (3 sources) Mood disorders Onset: 05-22-2023 05-22-2023 Nutritional deficiencies (3 sources) Iron deficiency; Translations: [Iron deficiency] Onset: 12-12-2022 12-12-2022 Episodic Other aftercare (1 source) residential (current) use of oral hypoglycemic drugs; Translations: [INSURANCE ASSOCIATE USE ORAL HYPOGLYCEMIC DX] Onset: 08-12-2022 Episodic Other aftercare (1 source) residential (current) use of insulin; Translations: [INSURANCE ASSOCIATE CURRENT USE OF INSULIN] Onset: 02-13-2022 Episodic Other bone disease and musculoskeletal deformities (3 sources) Osteopenia; Translations: [Other specified disorders of bone density and structure, unspecified site] Onset: 12-12-2022 12-12-2022 Episodic Other connective tissue disease (4 sources) Pain in left foot; Translations: [PAIN IN LEFT FOOT] Onset: 02-20-2022 Episodic Other eye disorders (3 sources) Dry eyes; Translations: [Dry eye syndrome of bilateral lacrimal glands] Onset: 05-19-2023 05-19-2023 Episodic Other nutritional; endocrine; and metabolic disorders (3 sources) Overweight; Translations: [Overweight] Onset: 12-12-2022 Resolved: 07-30-2023 07-30-2023 Episodic Pneumonia (except that caused by tuberculosis or sexually transmitted disease) (1 source) Pneumonia, unspecified organism Onset: 05-21-2021 Resolved: 05-21-2021 Episodic Residual codes; unclassified (3 sources) Sleep disorder; Translations: [Sleep disorder, unspecified] Onset: 12-12-2022 12-12-2022 Episodic Screening and history of mental health and substance abuse codes (8 sources) Ex-smoker; Translations: [Personal history of nicotine dependence] Onset: 03-27-2017 Resolved: 08-07-2023 09-21-2019 Episodic Unclassified (1 source) Unclassified (1 source) Contact with and (suspected) exposure to covid-19 Z20.822 Viral infection (1 source) COVID-19 Onset: 05-21-2021 Resolved: 05-21-2021 Results Test Name Value Interpretation Reference Range Facil ity Lab Reportson 08-27-2023 Lab Reports [id number]#1 .00TIFF [facility] Lab Reportson 08-25-2023 Lab Reports [id number]#1 .00TIFF Normal [facility] Lab Reports [id number]#1 .00TIFF Normal [facility] Lab Reportson 08-22-2023 Lab Reports [id number] .00TIFF [facility] Lab Reportson 08-21-2023 Lab Reports [id number]#1 .00TIFF [facility] Lab Reports [id number]#1 .00TIFF Normal [facility] ALL BUNon 08-20-2023 Urea nitrogen [Mass/Vol] 12.0 mg/dL 7.0 - 18.0 mg/dL [facility] ALL CARBON DIOXIDEon 024 CO2 [Moles/Vol] 30.1 mmol/L 21.0 - 32.0 mmol/L [facility] ALL CHLORIDEon 08-20-2023 Chloride [Moles/Vol] 104 mmol/L 98 - 107 mmol/L [facility] ALL PHOSPHOROUSon 08-20-2023 Phosphate [Mass/Vol] 4.1 mg/dL 2.6 - 4.7 mg/dL [facility] ALL SODIUMon 08-20-2023 Sodium [Moles/Vol] 141 mmol/L 136 - 145 mmol/L [facility] ALL URIC ACIDon 08-20-2023 Urate [Mass/Vol] 4.4 mg/dL 2.6 - 6.0 mg/dL [facility] CALCIUMon 08-20-2023 Calcium [Mass/Vol] 9.1 mg/dL 8.5 - 10.1 mg/dL [facility] No Panel Informationon 08-20 [facility] CREATININEon 08-20-2023 Creatinine [Mass/Vol] 0.86 mg/dL 0.55 - 1.02 mg/dL [facility] GFR/1.73 sq M.predicted CKD-EPI (S/P/Bld) [Vol rate/Area] >60 60 - PINF [facility] EGFR-NON AF GRENADIAN >60 60 - PINF [facility] Consent for Procedure/Surger yon 08-15-2023 Consent for Procedure/Surgery [id number] .00TIFF Normal [facility] ED Note-Physicianon 08-15-19 ED Note-Physician [id number]#1. 00TIFF Normal [facility] Lab Reportson 08-15-2023 Lab Reports [id number]#1. 00TIFF Normal [facility] Lab Reports [id number]#1 .00TIFF [facility] Lab Reports [id number]#1 .00TIFF [facility] Operative Reporton Operative Report [id number]#1 .00TIFF [facility] RAD - CT Reporton 08-15-2023 RAD - CT Report [id number]#1. 00TIFF [facility] Ambulatory Visit Summaryon 0 08-13-2023 Ambulatory Visit Summary BOBBI SENRA Hazel :1945 Visit Date:08/13/2023 Ambulatory Visit Instructions Your [...] AGUIAR, Williams Venegas Where: [facility] Normal [address] [place] [address]- \.br\ You Need to Schedule the Following Appointments\.br \ Follow Up with ANGELITO AGUIAR, Renato Arzola, URL When: \.br\ Comments:\.br\ sched ureteroscopy\.br \ f/u w/ [facility] scheduled 10/14/23\.br\ Where:\.br\ [facility] [address]br\ [place] [address]-\.br\ [id number]\.br\ Medications\.br\ What How Much When Instructions\.br \ [...] murmur\.br\ History of uterine cancer\.br\ Hx of reception agent use of blood thinners\.br\ Kidney stones\.br\ Nocturia\.br\ [...] including vitamins, herbs, eye drops, creams, and dvie-spw-jtvfpyw medicines.\.br\ ? \.br\ Any problems you or [...] you to take them.\.br\ ? \.br\ Taking qcqg-stc-qphfsch medicines, vitamins, herbs, and supplements.\.br \ Eating [...] You may also have tests, such [facility] Patient Educationon 08-13-19 Patient Education Nephrology Laser [...] including vitamins, herbs, eye drops, creams, and zlbh-pit-awujiej medicines. ? Any problems you or family [...] tells you to take them. ? Taking ckjj-vmt-uzfbpzr medicines, vitamins, herbs, and supplements. Eating and [...] pieces (more content not included)... Normal [facility] Urology Office/Clinic Noteon 08-13-2023 Urology Office/Clinic Note Chief Complaint Patient is here for follow up to [facility] ER HPI Staff Patient is here for f/u to [facility] ER on 08/12/23 due to distal [...] this patient from external providers and Dr. Sehpherd. I have reviewed and verified the staff [...] Hydronephrosis with renal and ureteral calculous obstruction) [facility] ER visit 08/12/23 due to R flank [...] abdominal pain) See #1 4. Anticoagulated (Z79.01: hearing screener (current) use of anticoagulants) On warfarin 3mg for a-fib. States she did not take this last night. Advised pt not to take her dose today either. Follow-up With When Contact Information ANGELITO AGUIAR, Renato Arzola, URL [facility] [address], [place] [address] [phone] Additional Instructions: sched ureteroscopy f/u w/ [facility] scheduled 10/14/23 Patient Education Laser Therapy for Kidney Stones I, Amy Gallagher, personally scribed for Dr. Santacruz on 08/13/2023 11:35:03. . Documentation recorded by the scribe, Amy Gallagher, accurately reflects the services(s) I performed and decisions made by me. Authenticated by Dr. Santacruz on 08/13/2023 11:37:02. Problem List/Past Medical History Ongoi (more content not included)... Normal [facility] Comment on above: Result Comment: Elec tronically Signed By: Rneato SANTACRUZ MD\.br\Date and Time Signed: 08/13/23 11:37 EST\.br\Electronically Co-Signed By: Amy Gallagher\.br\Date and Time Co-Signed: 08/13/23 11:35 EST COVID/FLU/RSV RT-PCRon 07-25 SARS-CoV-2 (COVID-19) RNA TREASURE+probe Ql (Unsp spec) Negative iovox Other COVID/FLU/RSV RT-PCR Negative [facility] [employer] Other COVID/FLU/RSV RT-PCR Positive [facility] [employer] Other Calculus Analysison 03-27-20 23 Calcium oxalate dihydrate Infrared spectroscopy (Stone) [Mass fraction] 100 % Invalid Interpretation Code [facility] Comment on above: Performed By: #### 1 [id number] ####[id number] [place] [address] Color (Stone) Roper Invalid Interpretation Code [facility] Comment on above: Performed By: #### 1 [id number] ####[id number] [place] [address] Composition Comment Invalid Interpretation Code [facility] Comment on above: Result Comment: Perc entage (Represents the % composition) Performed By: #### 1 [id number] ####[address] [address] Disclaimer: Comment Invalid Interpretation Code [facility] Comment on above: Result Comment: This test was developed and its performance characteristics determined by [facility]. It has not been cleared or approved by the Food and Drug Administration. Performed at: [facility] [address] [id number] PhD Silvestre Esquivel Performed By: #### 1 [id number] ####[address] [address] Laboratory comment Noam (Report) Comment Invalid Interpretation Code [facility] Comment on above: Result Comment: Coco goode questions regarding Calculi Analysis [facility] at: [phone]. Performed By: #### 1 [id number] ####[place] [id number] Please Note: Comment Invalid Interpretation Code [facility] Comment on above: Result Comment: Calc javier report will follow via computer, mail or steam pipe fitter delivery. Performed By: #### 1 [id number] ####[id number] [place] [address] Size (Stone) [Entitic vol] 6x4 Invalid Interpretation Code [facility] Comment on above: Result Comment: Sing le piece received. Performed By: #### 1 [id number] ####[id number] [place] [address] Specimen source subject Nom Comment Invalid Interpretation Code [facility] Comment on above: Result Comment: Not provided Performed By: #### 1 [id number] ####[address] [address] Stone Photo Comment Invalid Interpretation Code [facility] Comment on above: Result Comment: Phot ograph will follow under a separate cover Performed By: #### 1 [id number] ####[facility] [address] [place] [address] Weight (Stone) 49 mg Invalid Interpretation Code [facility] Comment on above: Performed By: #### 1 [id number] ####[facility] [address] [place] [address] Lab Reportson 03-27-2023 Lab Reports [id number]. 00CD:127 Normal [facility] Activated partial thrombopla stin time (aPTT) in platelet poor plasma by coagulation aOrdered By: Williams Shepherd on 03-26-2023 aPTT Coag (PPP) [Time] 35.9 s 25.1-36.5 [facility] Comment on above: A hematocrit value g reater than 55% may lead to inaccurate results in coagulation testing. Patients having hematocrit values >55% require a special collection tube for coagulation studies. Please contact the laboratory at [phone] for redraw instructions. Basic Metabolic Panelon 03-14 Anion gap [Moles/Vol] 13.0 mmol/L Normal 6.0-15.0 [facility] Comment on above: Performed By: #### P T, BMP, CBC, PTT #### [facility] [address] Calcium [Mass/Vol] 10.0 mg/dL Normal 8.6-10.3 [facility] Comment on above: Result Comment: PERF ORMED BY: [facility] [address] [place] [address] PATHOLOGIST ASSISTANT DIRECTOR OF [employer]IDENCE LIFE BERNIE GRAYSON M.D. Performed By: #### P T, BMP, CBC, PTT #### [facility] [address] [place] [address] [place] Chloride [Moles/Vol] 104 mmol/L Normal 98-107 [facility] Comment on above: Performed By: #### P T, BMP, CBC, PTT #### [facility] [address] [place] [address] [place] CO2 [Moles/Vol] 30.0 mmol/L Normal 21.0-31.0 [facility] Comment on above: Performed By: #### P T, BMP, CBC, PTT #### [facility] [address] [place] [address] [place] Creatinine [Mass/Vol] 0.85 mg/dL Normal 0.60-1.20 [facility] Comment on above: Performed By: #### P T, BMP, CBC, PTT #### [facility] [address] [place] [address] [place] GFR/1.73 sq M.predicted MDRD (S/P/Bld) [Vol rate/Area] mL/min/{1.73_m2} Normal [facility] Comment on above: Performed By: #### P T, BMP, CBC, PTT #### [facility] [address] Glucose [Mass/Vol] 111 mg/dL High 70-100 [facility] Comment on above: Result Comment: [facility] Glucose Reference Range is dependent on time and content of last meal. Glucose of more than 200 mg/dL in a nonstressed, ambulatory subject supports the diagnosis of Diabetes Mellitus. ADA recommended reference range Performed By: #### P T, BMP, CBC, PTT #### [facility] [address] [place] [address] [place] Potassium [Moles/Vol] 5.0 mmol/L Normal 3.5-5.1 [facility] Comment on above: Performed By: #### P T, BMP, CBC, PTT #### [facility] [address] [place] [address] [place] Sodium [Moles/Vol] 142 mmol/L Normal 136-145 [facility] Comment on above: Performed By: #### P T, BMP, CBC, PTT #### [facility] [address] [place] [address] [place] Urea nitrogen [Mass/Vol] 12 mg/dL Normal 7-25 [facility] Comment on above: Performed By: #### P T, BMP, CBC, PTT #### [facility] [address] [place] [address] [place] Basophils Auto (Bld) [#/Vol] Ordered By: Williams Shepherd on 03-26-2023 Basophils (Bld) [#/Vol] 0.0 10*3/uL 0.0-0.2 [facility] Basophils/100 WBC Auto (Bld) Ordered By: Williams Shepherd on 03-26-2023 Basophils/100 WBC (Bld) 0.8 % . [facility] Calcium [Mass/volume] in Ser um or PlasmaOrdered By: Williams Shepherd on 03-26-2023 Calcium [Mass/Vol] 10.0 mg/dL 8.6-10.3 [facility] Carbon dioxide, total [Moles /volume] in Serum or PlasmaOrdered By: Williams Shepherd on 03-26-2023 CO2 [Moles/Vol] 30.0 mmol/L 21.0-31.0 [facility] Chloride [Moles/volume] in S fartun or PlasmaOrdered By: Williams Shepherd on 03-26-2023 Chloride [Moles/Vol] 104 mmol/L 98-107 [facility] Complete Blood Count Auto Di ffon 03-26-2023 Basophils (Bld) [#/Vol] 0.0 10*3/uL Normal 0.0-0.2 [facility] Comment on above: Result Comment: PERF ORMED BY: [place] [address] PATHOLOGIST ASSISTANT DIRECTOR OF [employer] BERNIE GRAYSON M.D. Performed By: #### P T, BMP, CBC, PTT #### [facility] [address] [place] [address] [place] Basophils/100 WBC (Bld) 0.8 % Normal . [facility] Comment on above: Performed By: #### P T, BMP, CBC, PTT #### [facility] [address] [place] [address] [place] Eosinophils (Bld) [#/Vol] 0.3 10*3/uL Normal 0.0-0.45 [facility] Comment on above: Performed By: #### P T, BMP, CBC, PTT #### [address] Eosinophils/100 WBC (Bld) 4.3 % Normal . [facility] Comment on above: Performed By: #### P T, BMP, CBC, PTT #### [address] Erythrocyte distribution width (RBC) [Ratio] 14.8 % Normal 11.9-15.3 [facility] Comment on above: Performed By: #### P T, BMP, CBC, PTT #### [address] Hematocrit (Bld) [Volume fraction] 40.3 % Normal 34.0-46.4 [facility] Comment on above: Performed By: #### P T, BMP, CBC, PTT #### [address] Hemoglobin (Bld) [Mass/Vol] 13.3 g/dL Normal 11.8-15.4 [facility] Comment on above: Performed By: #### P T, BMP, CBC, PTT #### [address] Lymphocytes (Bld) [#/Vol] 2.2 10*3/uL Normal 1.00-4.8 [facility] Comment on above: Performed By: #### P T, BMP, CBC, PTT #### [place] [address] [place] Lymphocytes/100 WBC (Bld) 36.9 % Normal . [facility] Comment on above: Performed By: #### P T, BMP, CBC, PTT #### [address] MCH (RBC) [Entitic mass] 31.1 pg Normal 24.7-34.3 [facility] Comment on above: Performed By: #### P T, BMP, CBC, PTT #### [address] MCV (RBC) [Entitic vol] 94.4 fL Normal 80-100 [facility] Comment on above: Performed By: #### P T, BMP, CBC, PTT #### [address] Mean Corpuscular HGB Conc 32.9 g/dL Normal 32.0-35.0 [facility] Comment on above: Performed By: #### P T, BMP, CBC, PTT #### [address] Monocytes (Bld) [#/Vol] 0.5 10*3/uL Normal 0.0-0.8 [facility] Comment on above: Performed By: #### P T, BMP, CBC, PTT #### [address] Monocytes/100 WBC (Bld) 7.8 % Normal . [facility] Comment on above: Performed By: #### P T, BMP, CBC, PTT #### [address] Neutrophils (Bld) [#/Vol] 3.0 10*3/uL Normal 1.8-7.7 [facility] Comment on above: Performed By: #### P T, BMP, CBC, PTT #### [address] Neutrophils/100 WBC (Bld) 50.2 % Normal . [facility] Comment on above: Performed By: #### P T, BMP, CBC, PTT #### [address] NRBC% 0.3 /100{WBC} Normal 0-0.5 [facility] Comment on above: Performed By: #### P T, BMP, CBC, PTT #### [address] Platelet mean volume (Bld) [Entitic vol] 7.1 fL Normal 6.3-10.7 [facility] Comment on above: Performed By: #### P T, BMP, CBC, PTT #### [address] [place] [address] [place] Platelets (Bld) [#/Vol] 363 10*3/uL Normal 150-450 [facility] Comment on above: Performed By: #### P T, BMP, CBC, PTT #### [facility] [address] RBC (Bld) [#/Vol] 4.27 10*6/uL Normal 3.60-5.[address] [facility] Comment on above: Performed By: #### P T, BMP, CBC, PTT #### [facility] [address] WBC (Bld) [#/Vol] 5.9 10*3/uL Normal 3.8-11.6 [facility] Comment on above: Performed By: #### P T, BMP, CBC, PTT #### [facility] [address] Creatinine [Mass/volume] in Serum or PlasmaOrdered By: Williams Shepherd on 03-26-2023 Creatinine [Mass/Vol] 0.85 mg/dL 0.60-1.20 [facility] ECG 12 lead ECGon 03-26-2023 ECG 12 lead ECG [facility] [place] [address] [place] [address] Electrocardiograph Report Signed Patient: Wilda Sen MR#: [id number] 8 : 1945 Acct:[id number] Age/Sex: 77 / F ADM Date: 03/26/23 Loc: Room: Type: [facility] Attending Dr: Williams Shepherd MD Ordering [...] By Maru Whitehead DO 03/26 1908 Normal [facility] Eosinophils Auto (Bld) [#/Vo l]Ordered By: Williams Shepherd on 03-26-2023 Eosinophils (Bld) [#/Vol] 0.3 10*3/uL 0.0-0.45 [facility] Eosinophils/100 WBC Auto (Bl d)Ordered By: Williams Shepherd on 03-26-2023 Eosinophils/100 WBC (Bld) 4.3 % . [facility] Erythrocyte distribution wid th Auto (RBC) [Ratio]Ordered By: Williams Shepherd on 03-26-2023 Erythrocyte distribution width (RBC) [Ratio] 14.8 % 11.9-15.3 [facility] Glucose [Mass/volume] in Ser um or PlasmaOrdered By: Williams Shepherd on 03-26-2023 Glucose [Mass/Vol] 111 mg/dL 70-100 [facility] Comment on above: ADA recommended refe rence rangeRandom Glucose Reference Range is dependent on time and content of last meal. Glucose of more than 200 mg/dL in a nonstressed, ambulatory subject supports the diagnosis of Diabetes Mellitus. Hematocrit Auto (Bld) [Volum e fraction]Ordered By: Williams Shepherd on 03-26-2023 Hematocrit (Bld) [Volume fraction] 40.3 % 34.0-46.4 [facility] Hemoglobin [Mass/volume] in BloodOrdered By: Williams Shepherd on 03-26-2023 Hemoglobin (Bld) [Mass/Vol] 13.3 g/dL 11.8-15.4 [facility] INR in Platelet poor plasma by Coagulation assayOrdered By: Williams Shepherd on 03-26-2023 INR Coag (PPP) [Relative time] 2.3 {INR} [facility] Comment on above: INR Therapeutic Rang [...] RBC Auto (Bld) [#/Vol] 5.9 10*3/uL 3.8-11.6 [facility] Lymphocytes Auto (Bld) [#/Vo l]Ordered By: Williams Shepherd on 03-26-2023 Lymphocytes (Bld) [#/Vol] 2.2 10*3/uL 1.00-4.8 [facility] Lymphocytes/100 WBC Auto (Bl d)Ordered By: Williams Shepherd on 03-26-2023 Lymphocytes/100 WBC (Bld) 36.9 % . [facility] MCH Auto (RBC) [Entitic mass ]Ordered By: Williams Shepherd on 03-26-2023 MCH (RBC) [Entitic mass] 31.1 pg 24.7-34.3 [facility] MCHC Auto (RBC) [Mass/Vol]Or dered By: Williams Shepherd on 03-26-2023 MCHC (RBC) [Mass/Vol] 32.9 g/dL 32.0-35.0 [facility] MCV Auto (RBC) [Entitic vol] Ordered By: Williams Shepherd on 03-26-2023 MCV (RBC) [Entitic vol] 94.4 fL 80-100 [facility] Monocytes Auto (Bld) [#/Vol] Ordered By: Williams Shepherd on 03-26-2023 Monocytes (Bld) [#/Vol] 0.5 10*3/uL 0.0-0.8 [facility] Monocytes/100 WBC Auto (Bld) Ordered By: Williams Shepherd on 03-26-2023 Monocytes/100 WBC (Bld) 7.8 % . [facility] Neutrophils Auto (Bld) [#/Vo l]Ordered By: Williams Shepherd on 03-26-2023 Neutrophils (Bld) [#/Vol] 3.0 10*3/uL 1.8-7.7 [facility] Neutrophils/100 WBC Auto (Bl d)Ordered By: Williams Shepherd on 03-26-2023 Neutrophils/100 WBC (Bld) 50.2 % . [facility] No Panel InformationOrdered By: Williams Shepherd on 03-26-2023 Estimated GFR (CKD-EPI) > 60.0 mL/Min [facility] Creatinine Clearance (Chem N/A [facility] Nucleated erythrocytes [Pres ence] in Blood by Automated countOrdered By: Williams Shepherd on 03-26-2023 Nucleated RBC Auto Ql (Bld) 0.3 /100{WBC} 0-0.5 [facility] Partial Thromboplastin Timeo n 03-26-2023 aPTT Coag (Bld) [Time] 35.9 s Normal 25.1-36.5 [facility] Comment on above: Result Comment: A he matocrit value greater than 55% may lead to inaccurate results in coagulation testing. Patients having hematocrit values >55% require a special collection tube for coagulation studies. Please contact the laboratory at [phone] for redraw instructions. PERFORMED BY: [place] [address] PATHOLOGIST ASSISTANT DIRECTOR OF [employer]ID[employer] BERNIE GRAYSON M.D. Performed By: #### P T, BMP, CBC, PTT #### [address] Platelet mean volume Auto (B ld) [Entitic vol]Ordered By: Williams Shepherd on 03-26-2023 Platelet mean volume (Bld) [Entitic vol] 7.1 fL 6.3-10.7 [facility] Platelets Auto (Bld) [#/Vol] Ordered By: Williams Shepherd on 03-26-2023 Platelets (Bld) [#/Vol] 363 10*3/uL 150-450 [facility] Potassium [Moles/volume] in Serum or PlasmaOrdered By: Williams Shepherd on 03-26-2023 Potassium [Moles/Vol] 5.0 mmol/L 3.5-5.1 [facility] Prothrombin Time INRon 03-26 INR Coag (PPP) [Relative time] 2.3 {INR} Normal [facility] Comment on above: Result Comment: INR [...] #### P T, BMP, CBC, PTT #### [facility] [id number] [facility] PT Coag (PPP) [Time] 26.6 s High 9.0-12.9 [facility] Comment on above: Result Comment: A he matocrit value greater than 55% may lead to inaccurate results in coagulation testing. Patients having hematocrit values >55% require a special collection tube for coagulation studies. Please contact the laboratory at [phone] for redraw instructions. Performed By: #### P T, BMP, CBC, PTT #### [facility] [id number] [facility] Prothrombin time (PT)Ordered By: Williams Shepherd on 03-26-2023 PT Coag (PPP) [Time] 26.6 s 9.0-12.9 [facility] Comment on above: A hematocrit value g reater than 55% may lead to inaccurate results in coagulation testing. Patients having hematocrit values >55% require a special collection tube for coagulation studies. Please contact the laboratory at [phone] for redraw instructions. RBC Auto (Bld) [#/Vol]Ordere d By: Williams Shepherd on 03-26-2023 RBC (Bld) [#/Vol] 4.27 10*6/uL 3.60-5.[address] [facility] Serum or plasma anion gap de terminationOrdered By: Williams Shepherd on 03-26-2023 Anion gap [Moles/Vol] 13.0 mmol/L 6.0-15.0 [facility] Sodium [Moles/volume] in Ser um or PlasmaOrdered By: Williams Shepherd on 03-26-2023 Sodium [Moles/Vol] 142 mmol/L 136-145 [facility] Urea nitrogen [Mass/volume] in Serum or PlasmaOrdered By: Williams Shepherd on 03-26-2023 Urea nitrogen [Mass/Vol] 12 mg/dL 02-04 [facility] WBC Auto (Bld) [#/Vol]Ordere d By: Williams Cora on 03-26-2023 WBC (Bld) [#/Vol] 5.9 10*3/uL 3.8-11.6 [facility] Consultation Noteon 03-17-20 Consultation Note [id number] .00CD:127 Normal [facility] Lab Reportson 02-12-2023 Lab Reports [id number] .00CD:127 Normal [facility] RAD - MISCon 02-12-2023 RAD - MISC [id number] .00CD:127 Normal [facility] RAD - CT Reporton 02-05-2023 RAD - CT Report [id number] .00CD:127 Normal [facility] RAD - MISCon 02-05-2023 RAD - MISC [id number] .00CD:127 Normal [facility] Ambulatory Visit Summaryon 0 02-03-2023 Ambulatory Visit Summary WILDA SEN Yasemin :1945 Visit Date:02/03/2023 Ambulatory Visit Instructions [facility] [...] [facility] Patient Educationon 02-04-20 Patient Education Urology Kidney [...] these instructions at home: Medicines ? Take winv-fkv-cxwciui and prescription medicines only as told by [...] and follow (more content not included)... Normal [facility] Urology Office/Clinic Noteon 02-03-2023 Urology Office/Clinic Note Chief Complaint 16 month follow up w/ CT scan [facility] Staff Pt is here today for 16 month follow up w/ CT scan done @[facility] on 01/15/23. CT scan shows partially [...] Information CORA AGUIAR, Williams Venegas, URL [address] [place], [place] [id number]- Additional Instructions: Patient Education Kidney Stones I, Fanny Bowen, personally scribed for Dr. Shepherd on 02/03/2023 12:04:03. . Documentation recorded by the scribe, Fanny Bowen, accurately reflects the services(s) I performed and decisions made by me. Authenticated by Dr. Shepherd on 02/03/2023 12:37:35. Portions of this record may have been created with voice recognition artificial intelligence software, specifically [employer] and or [employer]. Substitutions may have occurred due to the inherent limitations of voice recognition and artificial intelligence software. Problem List/Past Medical History Ongoing Abdominal pain Anticoagulated Anxiety BMI 27.0-27.9,adult Depression Diabetes Former smoker Frequent urination Heart murmur History of uterine cancer Hx of shelter use of blood thin (more content not included)... Normal [facility] Comment on above: Result Comment: Elec tronically Signed By: Williams SHEPHERD MD\.br\Date and Time Signed: 02/03/23 12:39 EDT\.br\Electronically Co-Signed By: Fanny Bowen\.br\Date and Time Co-Signed: 02/03/23 12:04 EDT PROTIMEon 12-02-2022 INR Coag (PPP) [Relative time] 3.62 {INR} Normal [facility] Comment on above: Performed By: #### P T #### [facility] [address] [place] [address] Dr. Tg Fierro INR GUIDELINES SEE BELOW Normal [facility] Comment on above: Result Comment: LAURENCE RED INR: 2.0 - 3.0 CONDITIONS NOT LISTED BELOW 2.5 - 3.5 FOR PROSTHETIC HEART VALVE REPLACEMENT 2.5 - 3.5 RECURRENT THROMBOSIS Performed By: #### P T #### [facility] [address] [place] [address] Dr. Tg Fierro PT Coag (PPP) [Time] 35.7 s Critically high 9.0-11.6 [facility] Comment on above: Performed By: #### P T #### [facility] [address] [place] [address] Dr. Tg Fierro PROTIMEon 11-11-2022 INR Coag (PPP) [Relative time] 1.90 {INR} Normal [facility] Comment on above: Performed By: #### P T #### [facility] [address] [place] [address] Dr. Tg Fierro INR GUIDELINES SEE BELOW Normal [facility] Comment on above: Result Comment: LAURENCE RED INR: 2.0 - 3.0 CONDITIONS NOT LISTED BELOW 2.5 - 3.5 FOR PROSTHETIC HEART VALVE REPLACEMENT 2.5 - 3.5 RECURRENT THROMBOSIS Performed By: #### P T #### [facility] [address] [place] [address] Dr. Tg Fierro PT Coag (PPP) [Time] 19.4 s Critically high 9.0-11.6 [facility] Comment on above: Performed By: #### P T #### [facility] [address] [place], [place] [address] Dr. Tg Fierro CBC AUTO DIFFon 10-25-2022 BASO # 0.0 103/ul Normal 0.0-0.1 [facility] Comment on above: Performed By: #### P T #### [facility] [address] [place] [address] Dr. Tg Fierro Basophils/100 WBC (Bld) 0.5 % Normal 0.2-2.0 [facility] Comment on above: Performed By: #### P T #### [facility] [address] [place] [address] Dr. Tg Fierro EO # 0.2 103/ul Normal 0.0-0.7 [facility] Comment on above: Performed By: #### P T #### [facility] [address] [place] [address] Dr. Tg Fierro Eosinophils/100 WBC (Bld) 2.7 % Normal 0.9-7.0 [facility] Comment on above: Performed By: #### P T #### [facility] [address] [place] [address] Dr. Tg Fierro Erythrocyte distribution width (RBC) [Ratio] 13.4 % Normal 11.0-15.0 [facility] Comment on above: Performed By: #### P T #### [facility] [address] [place] [address] Dr. Tg Fierro Hematocrit (Bld) [Volume fraction] 40.7 % Normal 36.0-48.0 [facility] Comment on above: Performed By: #### P T #### [facility] [address] [place] [address] Dr. Tg Fierro Hemoglobin (Bld) [Mass/Vol] 13.2 g/dL Normal 12.0-16.0 [facility] Comment on above: Performed By: #### P T #### [facility] [address] [place] [address] Dr. Tg Fierro IG # 0.03 10e3/ul Normal 0.00-0.03 [facility] Comment on above: Performed By: #### P T #### [facility] [address] [place] [address] Dr. Tg Fierro IG % 0.5 % Normal 0.0-0.5 [facility] Comment on above: Performed By: #### P T #### [facility] [address] [place] [address] Dr. Tg Fierro LYMPH # 2.1 103/ul Normal 1.2-3.8 [facility] Comment on above: Performed By: #### P T #### [facility] [address] [place] [address] Dr. Tg Fierro Lymphocytes/100 WBC (Bld) 34.9 % Normal 20.5-60.0 [facility] Comment on above: Performed By: #### P T #### [facility] [address] [place] [address] Dr. Tg Fierro MANUAL DIFF REQ NO Normal [facility] Comment on above: Performed By: #### P T #### [facility] [address] [place] [address] Dr. Tg Fierro MCH (RBC) [Entitic mass] 30.5 pg Normal 26.7-34.0 [facility] Comment on above: Performed By: #### P T #### [facility] [address] [place] [address] Dr. Tg Fierro MCHC (RBC) [Mass/Vol] 32.4 g/dL Normal 29.9-35.2 [facility] Comment on above: Performed By: #### P T #### [facility] [address] [place] [address] Dr. Tg Fierro MCV (RBC) [Entitic vol] 94.0 fL Normal 81.0-99.0 [facility] Comment on above: Performed By: #### P T #### [facility] [address] [place] [address] Dr. Tg Fierro MONO # 0.4 103/ul Normal 0.3-0.8 [facility] Comment on above: Performed By: #### P T #### [facility] [address] [place] [address] Dr. Tg Fierro Monocytes/100 WBC (Bld) 7.1 % Normal 1.7-12.0 [facility] Comment on above: Performed By: #### P T #### [facility] [address] [place] [address] Dr. Tg Fierro NEUT # 3.2 103/ul Normal 1.4-6.5 [facility] Comment on above: Performed By: #### P T #### [facility] [address] [place] [address] Dr. Tg Fierro Neutrophils/100 WBC (Bld) 54.3 % Normal 43.0-75.0 [facility] Comment on above: Performed By: #### P T #### [facility] [address] [place] [address] Dr. Tg Fierro Platelet mean volume (Bld) [Entitic vol] 8.7 fL Critically low 9.5-13.5 [facility] Comment on above: Performed By: #### P T #### [facility] [address] [place] [address] Dr. Tg Fierro PLT 295 103/ul Normal 150-450 [facility] Comment on above: Performed By: #### P T #### [place] [facility] [address] [place] [address] Dr. Tg Fierro RBC 4.33 106/ul Normal 4.20-5.40 [facility] Comment on above: Performed By: #### P T #### [facility] [address] [place] [address] Dr. Tg Fierro WBC 5.9 103/ul Normal 4.0-11.0 [facility] Comment on above: Performed By: #### P T #### [facility] [address] [place] [address] Dr. Tg Fierro PROF 14(COMP METB)on 023 Albumin [Mass/Vol] 3.8 g/dL Normal 3.4-5.0 [facility] Comment on above: Performed By: #### C MP #### [facility] [address] [place] [address] Dr. Tg Fierro Albumin/Globulin [Mass ratio] 1.2 {ratio} Normal [facility] Comment on above: Performed By: #### C MP #### [facility] [address] [address] [address] Tg Fierro ALP [Catalytic activity/Vol] 49 U/L Normal 46-116 [facility] Comment on above: Performed By: #### C MP #### [facility] [address] [address] [address] Tg Fierro ALT [Catalytic activity/Vol] 21 U/L Normal 14-59 [facility] Comment on above: Performed By: #### C MP #### [facility] [address] [place] [address] Dr. Tg Fierro Anion gap [Moles/Vol] 13.3 mmol/L Normal [facility] Comment on above: Performed By: #### C MP #### [facility] [address] [place] [address] Dr. Tg Fierro AST [Catalytic activity/Vol] 14 U/L Critically low 15-37 [facility] Comment on above: Performed By: #### C MP #### [facility] [address] [place] [address] Dr. Tg Fierro Bilirubin [Mass/Vol] 0.5 mg/dL Normal 0.2-1.0 [facility] Comment on above: Performed By: #### C MP #### [facility] [address] [place] [address] Dr. Tg Fierro Calcium [Mass/Vol] 9.5 mg/dL Normal 8.5-10.1 [facility] Comment on above: Performed By: #### C MP #### [facility] [address] [address] [address] Tg Fierro Chloride [Moles/Vol] 104 mmol/L Normal 98-107 [facility] Comment on above: Performed By: #### C MP #### [facility] [address] [place] [address] Dr. Tg Fierro CO2 [Moles/Vol] 29.3 mmol/L Normal 21.0-32.0 [facility] Comment on above: Performed By: #### C MP #### [facility] [address] [address] [address] Tg Fierro Creatinine [Mass/Vol] 0.93 mg/dL Normal 0.55-1.02 [facility] Comment on above: Performed By: #### C MP #### [facility] [address] [address] [address] Tg Fierro EGFR-AF GRENADIAN >60 Normal >=60 [facility] Comment on above: Performed By: #### C MP #### [facility] [address] [address] [address] Tg Fierro EGFR-NON AF GRENADIAN 59 mL/min/1.73m2 Critically low >=60 [facility] Comment on above: Performed By: #### C MP #### [facility] [address] [address] [address] Tg Fierro Globulin (S) [Mass/Vol] 3.2 g/dL Normal [facility] Comment on above: Performed By: #### C MP #### [facility] [address] [address] [address] Tg Fierro Glucose [Mass/Vol] 186 mg/dL Critically high 74-106 [facility] Comment on above: Performed By: #### C MP #### [facility] [address] [address] [address] Tg Fierro Potassium [Moles/Vol] 4.6 mmol/L Normal 3.5-5.1 [facility] Comment on above: Performed By: #### C MP #### [facility] [address] [address] [address] Tg Fierro Protein [Mass/Vol] 7.0 g/dL Normal 6.4-8.[address] [facility] Comment on above: Performed By: #### C MP #### [facility] [address] [address] [address] Tg Fierro Sodium [Moles/Vol] 142 mmol/L Normal 136-[address] [facility] Comment on above: Performed By: #### C MP #### [facility] [address] [place] [address] Dr. Tg Fierro Urea nitrogen [Mass/Vol] 15.0 mg/dL Normal 7.0-18.0 [facility] Comment on above: Performed By: #### C MP #### [facility] [address] [place] [address] Dr. Tg Fierro Urea nitrogen/Creatinine [Mass ratio] 16.1 mg/mg Normal [facility] Comment on above: Performed By: #### C MP #### [facility] [address] [place] [address] Dr. Tg Fierro SED RATE WESTERGRENon 2022 SED RATE 9 mm/hr Normal <=30 [facility] Comment on above: Performed By: #### C MP #### [facility] [address] [place] [address] Dr. Tg Fierro PROTIMEon 10-14-2022 INR Coag (PPP) [Relative time] 1.94 {INR} Normal [facility] Comment on above: Performed By: #### P T #### [facility] [address] [place] [address] Dr. Tg Fierro INR GUIDELINES SEE BELOW Normal [facility] Comment on above: Result Comment: LAURENCE RED INR: 2.0 - 3.0 CONDITIONS NOT LISTED BELOW 2.5 - 3.5 FOR PROSTHETIC HEART VALVE REPLACEMENT 2.5 - 3.5 RECURRENT THROMBOSIS Performed By: #### P T #### [facility] [address] [place] [address] Dr. Tg Fierro PT Coag (PPP) [Time] 19.8 s Critically high 9.0-11.6 [facility] Comment on above: Performed By: #### P T #### [facility] [address] [place] [address] Dr. gT Fierro CBC AUTO DIFFon 09-24-2022 BASO # 0.1 103/ul Normal 0.0-0.1 [facility] Comment on above: Performed By: #### P T #### [facility] [address] [place] [address] Dr. Tg Fierro Basophils/100 WBC (Bld) 0.7 % Normal 0.2-2.0 [facility] Comment on above: Performed By: #### P T #### [facility] [address] [place] [address] Dr. Tg Fierro EO # 0.3 103/ul Normal 0.0-0.7 [facility] Comment on above: Performed By: #### P T #### [facility] [address] [place] [address] Dr. Tg Fierro Eosinophils/100 WBC (Bld) 3.6 % Normal 0.9-7.0 [facility] Comment on above: Performed By: #### P T #### [facility] [address] [place] [address] Dr. Tg Fierro Erythrocyte distribution width (RBC) [Ratio] 13.4 % Normal 11.0-15.0 [facility] Comment on above: Performed By: #### P T #### [facility] [address] [place] [address] Dr. Tg Fierro Hematocrit (Bld) [Volume fraction] 38.4 % Normal 36.0-48.0 [facility] Comment on above: Performed By: #### P T #### [facility] [address] [place] [address] Dr. Tg Fierro Hemoglobin (Bld) [Mass/Vol] 12.7 g/dL Normal 12.0-16.0 [facility] Comment on above: Performed By: #### P T #### [facility] [address] [place] [address] Dr. Tg Fierro IG # 0.05 10e3/ul Critically high 0.00-0.03 [facility] Comment on above: Performed By: #### P T #### [facility] [address] [place] [address] Dr. Tg Fierro IG % 0.7 % Critically high 0.0-0.5 [facility] Comment on above: Performed By: #### P T #### [facility] [address] [place] [address] Dr. Tg Fierro LYMPH # 2.6 103/ul Normal 1.2-3.8 [facility] Comment on above: Performed By: #### P T #### [facility] [address] [place] [address] Dr. Tg Fierro Lymphocytes/100 WBC (Bld) 34.2 % Normal 20.5-60.0 [facility] Comment on above: Performed By: #### P T #### [facility] [address] [place] [address] Dr. Tg Fierro MANUAL DIFF REQ NO Normal [facility] Comment on above: Performed By: #### P T #### [facility] [address] [place] [address] Dr. Tg Fierro MCH (RBC) [Entitic mass] 31.2 pg Normal 26.7-34.0 [facility] Comment on above: Performed By: #### P T #### [facility] [address] [place] [address] Dr. Tg Fierro MCHC (RBC) [Mass/Vol] 33.1 g/dL Normal 29.9-35.2 [facility] Comment on above: Performed By: #### P T #### [facility] [address] [place] [address] Dr. Tg Fierro MCV (RBC) [Entitic vol] 94.3 fL Normal 81.0-99.0 [facility] Comment on above: Performed By: #### P T #### [facility] [address] [place] [address] Dr. Tg Fierro MONO # 0.6 103/ul Normal 0.3-0.8 [facility] Comment on above: Performed By: #### P T #### [facility] [address] [place] [address] Dr. Tg Fierro Monocytes/100 WBC (Bld) 8.1 % Normal 1.7-12.0 [facility] Comment on above: Performed By: #### P T #### [facility] [address] [place] [address] Dr. Tg Fierro NEUT # 4.1 103/ul Normal 1.4-6.5 [facility] Comment on above: Performed By: #### P T #### [facility] [address] [place] [address] Dr. Tg Fierro Neutrophils/100 WBC (Bld) 52.7 % Normal 43.0-75.0 [facility] Comment on above: Performed By: #### P T #### [facility] [address] [place] [address] Dr. Tg Fierro Platelet mean volume (Bld) [Entitic vol] 8.7 fL Critically low 9.5-13.5 [facility] Comment on above: Performed By: #### P T #### [facility] [address] [place] [address] Dr. Tg Fierro PLT 278 103/ul Normal 150-450 [facility] Comment on above: Performed By: #### P T #### [facility] [address] [place] [address] Dr. Tg Fierro RBC 4.07 106/ul Critically low 4.20-5.40 [facility] Comment on above: Performed By: #### P T #### [facility] [address] [place] [address] Dr. Tg Fierro WBC 7.7 103/ul Normal 4.0-11.0 [facility] Comment on above: Performed By: #### P T #### [facility] [address] [place] [address] Dr. Tg Fierro PROF 14(COMP METB)on 023 Albumin [Mass/Vol] 3.9 g/dL Normal 3.4-5.0 [facility] Comment on above: Performed By: #### C MP #### [facility] [address] [place] [address] Dr. Tg Fierro Albumin/Globulin [Mass ratio] 1.4 {ratio} Normal [facility] Comment on above: Performed By: #### C MP #### [facility] [address] [place] [address] Dr. Tg Fierro ALP [Catalytic activity/Vol] 59 U/L Normal 46-116 [facility] Comment on above: Performed By: #### C MP #### [facility] [address] [address] [address] Tg Fierro ALT [Catalytic activity/Vol] 21 U/L Normal 14-59 [facility] Comment on above: Performed By: #### C MP #### [facility] [address] [address] [address] Tg Fierro Anion gap [Moles/Vol] 10.8 mmol/L Normal [facility] Comment on above: Performed By: #### C MP #### [facility] [address] [address] [address] Tg Fierro AST [Catalytic activity/Vol] 9 U/L Critically low 15-37 [facility] Comment on above: Performed By: #### C MP #### [facility] [address] [address] [address] Tg Fierro Bilirubin [Mass/Vol] 0.3 mg/dL Normal 0.2-1.0 [facility] Comment on above: Performed By: #### C MP #### [facility] [address] [address] [address] Tg Fierro Calcium [Mass/Vol] 9.1 mg/dL Normal 8.5-10.1 [facility] Comment on above: Performed By: #### C MP #### [facility] [address] [address] [address] Tg Fierro Chloride [Moles/Vol] 104 mmol/L Normal 98-107 [facility] Comment on above: Performed By: #### C MP #### [facility] [address] [address] [address] Tg Fierro CO2 [Moles/Vol] 28.3 mmol/L Normal 21.0-32.0 [facility] Comment on above: Performed By: #### C MP #### [facility] [address] [address] [address] Tg Fierro Creatinine [Mass/Vol] 0.86 mg/dL Normal 0.55-1.02 [facility] Comment on above: Performed By: #### C MP #### [facility] [address] [address] [address] Tg Fierro EGFR-AF GRENADIAN >60 Normal >=60 [facility] Comment on above: Performed By: #### C MP #### [facility] [address] [address] [address] Tg Fierro EGFR-NON AF GRENADIAN >60 Normal >=60 [facility] Comment on above: Performed By: #### C MP #### [facility] [address] [address] [address] Tg Fierro Globulin (S) [Mass/Vol] 2.7 g/dL Normal [facility] Comment on above: Performed By: #### C MP #### [facility] [address] [address] [address] Tg Fierro Glucose [Mass/Vol] 120 mg/dL Critically high 74-106 [facility] Comment on above: Performed By: #### C MP #### [facility] [address] [address] [address] Tg Fierro Potassium [Moles/Vol] 4.1 mmol/L Normal 3.5-5.1 [facility] Comment on above: Performed By: #### C MP #### [facility] [address] [address] [address] Tg Fierro Protein [Mass/Vol] 6.6 g/dL Normal 6.4-8.[address] [facility] Comment on above: Performed By: #### C MP #### [facility] [address] [address] [address] Tg Fierro Sodium [Moles/Vol] 139 mmol/L Normal 136-[address] [facility] Comment on above: Performed By: #### C MP #### [facility] [address] [address] [address] Tg Fierro Urea nitrogen [Mass/Vol] 13.0 mg/dL Normal 7.0-18.0 [facility] Comment on above: Performed By: #### C MP #### [facility] [address] [address] [address] Tg Fierro Urea nitrogen/Creatinine [Mass ratio] 15.1 mg/mg Normal [facility] Comment on above: Performed By: #### C MP #### [facility] [address] [address] [address] Tg Fierro PROTIMEon 09-24-2022 INR Coag (PPP) [Relative time] 1.35 {INR} Normal [facility] Comment on above: Performed By: #### P T #### [facility] [address] [place] [address] Dr. Tg Fierro INR GUIDELINES SEE BELOW Normal [facility] Comment on above: Result Comment: LAURENCE RED INR: 2.0 - 3.0 CONDITIONS NOT LISTED BELOW 2.5 - 3.5 FOR PROSTHETIC HEART VALVE REPLACEMENT 2.5 - 3.5 RECURRENT THROMBOSIS Performed By: #### P T #### [facility] [address] [place] [address] Dr. Tg Fierro PT Coag (PPP) [Time] 14.1 s Critically high 9.0-11.6 [facility] Comment on above: Performed By: #### P T #### [facility] [address] [place] [address] Dr. Tg Fierro SED RATE [facility] 2022 SED RATE 8 mm/hr Normal <=30 [facility] Comment on above: Performed By: #### C MP #### [facility] [address] [place] [address] Dr. Tg Fierro PROTIMEon 09-09-2022 INR Coag (PPP) [Relative time] 1.23 {INR} Normal [facility] Comment on above: Performed By: #### P T #### [facility] [address] [place] [address] Dr. Tg Fierro INR GUIDELINES SEE BELOW Normal [facility] Comment on above: Result Comment: LAURENCE RED INR: 2.0 - 3.0 CONDITIONS NOT LISTED BELOW 2.5 - 3.5 FOR PROSTHETIC HEART VALVE REPLACEMENT 2.5 - 3.5 RECURRENT THROMBOSIS Performed By: #### P T #### [facility] [address] [address] [address] Tg Fierro PT Coag (PPP) [Time] 12.9 s Critically high 9.0-11.6 [facility] Comment on above: Performed By: #### P T #### [facility] [address] [place] [address] Dr. Tg Fierro ECHOCARDIO M/2D COMPLETEon 0 09-02-2022 ECHOCARDIO M/2D COMPLETE Patient: WILDA SEN Exam Date: 09/02/2022 : 1945 Gender:F Ordering : DR JAYME PEREZ . Admission #: [id number] Family : Order #: [id number] CLICK HERE TO VIEW EXAM ECHOCARDIOGRAM REPORT [...] Bender M.D. on 09/03/2022 at 17:25 Normal [facility] GLYCOHEMOGLOBIN A1Con 2022 ADA RECOMMENDATION SEE BELOW Normal [facility] Comment on above: Result Comment: ADA RECOMMENDED LIMIT 4.0 - 6.0 ADA THERAPEUTIC TARGET < 7.0 ACTION SUGGESTED > 7.0 Performed By: #### A 1C #### [facility] [address] [place] [address] Dr. Tg Fierro Glucose [Mass/Vol] 148 mg/dL Normal [facility] Comment on above: Performed By: #### A 1C #### [facility] [address] [place] [address] Dr. Tg Fierro HbA1c (Bld) [Mass fraction] 6.8 % Critically high 4.5-6.2 [facility] Comment on above: Performed By: #### A 1C #### [facility] [address] [address] [address] Tg Fierro CBC AUTO DIFFon 08-05-2022 BASO # 0.1 103/ul Normal 0.0-0.1 [facility] Comment on above: Performed By: #### C BC #### [facility] [address] [address] [address] Tg Fierro Basophils/100 WBC (Bld) 0.8 % Normal 0.2-2.0 [facility] Comment on above: Performed By: #### C BC #### [facility] [address] [address] [address] Tg Fierro EO # 0.5 103/ul Normal 0.0-0.7 [facility] Comment on above: Performed By: #### C BC #### [facility] [address] [place] [address] Dr. Tg Fierro Eosinophils/100 WBC (Bld) 7.3 % Critically high 0.9-7.0 [facility] Comment on above: Performed By: #### C BC #### [facility] [address] [place] [address] Dr. Tg Fierro Erythrocyte distribution width (RBC) [Ratio] 13.4 % Normal 11.0-15.0 [facility] Comment on above: Performed By: #### C BC #### [facility] [address] [place] [address] Dr. Tg Fierro Hematocrit (Bld) [Volume fraction] 37.1 % Normal 36.0-48.0 [facility] Comment on above: Performed By: #### C BC #### [facility] [address] [place] [address] Dr. Tg Fierro Hemoglobin (Bld) [Mass/Vol] 12.9 g/dL Normal 12.0-16.0 [facility] Comment on above: Performed By: #### C BC #### [facility] [address] [place] [address] Dr. Tg Fierro IG # 0.03 10e3/ul Normal 0.00-0.03 [facility] Comment on above: Performed By: #### C BC #### [facility] [address] [place] [address] Dr. Tg Fierro IG % 0.5 % Normal 0.0-0.5 [facility] Comment on above: Performed By: #### C BC #### [facility] [address] [place] [address] Dr. Tg Fierro LYMPH # 2.3 103/ul Normal 1.2-3.8 [facility] Comment on above: Performed By: #### C BC #### [facility] [address] [place] [address] Dr. Tg Fierro Lymphocytes/100 WBC (Bld) 34.9 % Normal 20.5-60.0 [facility] Comment on above: Performed By: #### C BC #### [facility] [address] [place] [address] Dr. Tg Fierro MANUAL DIFF REQ NO Normal [facility] Comment on above: Performed By: #### C BC #### [facility] [address] [place] [address] Dr. Tg Fierro MCH (RBC) [Entitic mass] 31.0 pg Normal 26.7-34.0 [facility] Comment on above: Performed By: #### C BC #### [facility] [address] [place] [address] Dr. Tg Fierro MCHC (RBC) [Mass/Vol] 34.8 g/dL Normal 29.9-35.2 [facility] Comment on above: Performed By: #### C BC #### [facility] [address] [place] [address] Dr. Tg Fierro MCV (RBC) [Entitic vol] 89.2 fL Normal 81.0-99.0 [facility] Comment on above: Performed By: #### C BC #### [facility] [address] [place] [address] Dr. Tg Fierro MONO # 0.4 103/ul Normal 0.3-0.8 [facility] Comment on above: Performed By: #### C BC #### [facility] [address] [place] [address] Dr. Tg Fierro Monocytes/100 WBC (Bld) 6.1 % Normal 1.7-12.0 [facility] Comment on above: Performed By: #### C BC #### [facility] [address] [place] [address] Dr. Tg Fierro NEUT # 3.3 103/ul Normal 1.4-6.5 [facility] Comment on above: Performed By: #### C BC #### [facility] [address] [place] [address] Dr. Tg Fierro Neutrophils/100 WBC (Bld) 50.4 % Normal 43.0-75.0 [facility] Comment on above: Performed By: #### C BC #### [facility] [address] [place] [address] Dr. Tg Fierro Platelet mean volume (Bld) [Entitic vol] 8.6 fL Critically low 9.5-13.5 [facility] Comment on above: Performed By: #### C BC #### [facility] [address] [place] [address] Dr. Tg Fierro PLT 336 103/ul Normal 150-450 [facility] Comment on above: Performed By: #### C BC #### [facility] [address] [place] [address] Dr. Tg Fierro RBC 4.16 106/ul Critically low 4.20-5.40 [facility] Comment on above: Performed By: #### C BC #### [facility] [address] [address] [address] Tg Fierro WBC 6.4 103/ul Normal 4.0-11.0 [facility] Comment on above: Performed By: #### C BC #### [facility] [address] [place] [address] Dr. Tg Fierro PROF 14(COMP METB)on 023 Albumin [Mass/Vol] 3.9 g/dL Normal 3.4-5.0 [facility] Comment on above: Performed By: #### P T #### [facility] [address] [place] [address] Dr. Tg Fierro Albumin/Globulin [Mass ratio] 1.3 {ratio} Normal [facility] Comment on above: Performed By: #### P T #### [facility] [address] [place] [address] Dr. Tg Fierro ALP [Catalytic activity/Vol] 60 U/L Normal 46-116 [facility] Comment on above: Performed By: #### P T #### [facility] [address] [place] [address] Dr. gT Fierro ALT [Catalytic activity/Vol] 21 U/L Normal 14-59 [facility] Comment on above: Performed By: #### P T #### [facility] [address] [place] [address] Dr. Tg Fierro Anion gap [Moles/Vol] 15.2 mmol/L Normal [facility] Comment on above: Performed By: #### P T #### [facility] [address] [place] [address] Dr[address] Tg Fierro AST [Catalytic activity/Vol] 14 U/L Critically low 15-37 [facility] Comment on above: Performed By: #### P T #### [facility] [address] [place] [address] Dr. Tg Fierro Bilirubin [Mass/Vol] 0.4 mg/dL Normal 0.2-1.0 [facility] Comment on above: Performed By: #### P T #### [facility] [address] [address] [address] Tg Fierro Calcium [Mass/Vol] 9.3 mg/dL Normal 8.5-10.1 [facility] Comment on above: Performed By: #### P T #### [facility] [address] [place] [address] Dr. Tg Fierro Chloride [Moles/Vol] 102 mmol/L Normal 98-107 [facility] Comment on above: Performed By: #### P T #### [facility] [address] [place] [address] Dr. Tg Fierro CO2 [Moles/Vol] 26.8 mmol/L Normal 21.0-32.0 [facility] Comment on above: Performed By: #### P T #### [facility] [address] [place] [address] Dr. Tg Fierro Creatinine [Mass/Vol] 0.74 mg/dL Normal 0.55-1.02 [facility] Comment on above: Performed By: #### P T #### [facility] [address] [place] [address] Dr. Tg Fierro EGFR-AF GRENADIAN >60 Normal >=60 [facility] Comment on above: Performed By: #### P T #### [facility] [address] [place] [address] Dr. Tg Fierro EGFR-NON AF GRENADIAN >60 Normal >=60 [facility] Comment on above: Performed By: #### P T #### [facility] [address] [place] [address] Dr. Tg Fierro Globulin (S) [Mass/Vol] 3.1 g/dL Normal [facility] Comment on above: Performed By: #### P T #### [facility] [address] [address] [address] Tg Fierro Glucose [Mass/Vol] 148 mg/dL Critically high 74-106 [facility] Comment on above: Performed By: #### P T #### [facility] [address] [address] [address] Tg Fierro Potassium [Moles/Vol] 4.0 mmol/L Normal 3.5-5.1 [facility] Comment on above: Performed By: #### P T #### [facility] [address] [address] [address] Tg Fierro Protein [Mass/Vol] 7.0 g/dL Normal 6.4-8.2 [facility] Comment on above: Performed By: #### P T #### [facility] [address] [address] [address] Tg Fierro Sodium [Moles/Vol] 140 mmol/L Normal 136-145 [facility] Comment on above: Performed By: #### P T #### [facility] [address] [address] [address] Tg Fierro Urea nitrogen [Mass/Vol] 12.0 mg/dL Normal 7.0-18.0 [facility] Comment on above: Performed By: #### P T #### [facility] [address] [address] [address] Tg Fierro Urea nitrogen/Creatinine [Mass ratio] 16.2 mg/mg Normal [facility] Comment on above: Performed By: #### P T #### [facility] [address] [address] [address] Tg Fierro SED RATE WESTERGRENon 2022 SED RATE 30 mm/hr Normal <=30 [facility] Comment on above: Performed By: #### S EDR #### [facility] [address] [address] [address] Tg Fierro CBC AUTO DIFFon 04-15-2022 BASO # 0.1 103/ul Normal 0.0-0.1 [facility] Comment on above: Performed By: #### C BC #### [facility] [address] [place] [address] Dr. Tg Fierro Basophils/100 WBC (Bld) 0.6 % Normal 0.2-2.0 [facility] Comment on above: Performed By: #### C BC #### [facility] [address] [place] [address] Dr. Tg Fierro EO # 0.2 103/ul Normal 0.0-0.7 [facility] Comment on above: Performed By: #### C BC #### [facility] [address] [place] [address] Dr. Tg Fierro Eosinophils/100 WBC (Bld) 3.1 % Normal 0.9-7.0 [facility] Comment on above: Performed By: #### C BC #### [facility] [address] [place] [address] Dr. Tg Fierro Erythrocyte distribution width (RBC) [Ratio] 13.6 % Normal 11.0-15.0 [facility] Comment on above: Performed By: #### C BC #### [facility] [address] [place] [address] Dr. Tg Fierro Hematocrit (Bld) [Volume fraction] 42.3 % Normal 36.0-48.0 [facility] Comment on above: Performed By: #### C BC #### [facility] [address] [place] [address] Dr. Tg Fierro Hemoglobin (Bld) [Mass/Vol] 13.2 g/dL Normal 12.0-16.0 [facility] Comment on above: Performed By: #### C BC #### [facility] [address] [place] [address] Dr. Tg Fierro IG # 0.04 10e3/ul Critically high 0.00-0.03 [facility] Comment on above: Performed By: #### C BC #### [facility] [address] [place] [address] Dr. Tg Fierro IG % 0.5 % Normal 0.0-0.5 [facility] Comment on above: Performed By: #### C BC #### [facility] [address] [place] [address] Dr. Tg Fierro LYMPH # 2.5 103/ul Normal 1.2-3.8 [facility] Comment on above: Performed By: #### C BC #### [facility] [address] [place] [address] Dr. Tg Fierro Lymphocytes/100 WBC (Bld) 31.6 % Normal 20.5-60.0 [facility] Comment on above: Performed By: #### C BC #### [facility] [address] [place] [address] Dr. Tg Fierro MANUAL DIFF REQ NO Normal [facility] Comment on above: Performed By: #### C BC #### [facility] [address] [place] [address] Dr. Tg Fierro MCH (RBC) [Entitic mass] 30.3 pg Normal 26.7-34.0 [facility] Comment on above: Performed By: #### C BC #### [facility] [address] [place] [address] Dr. Tg Fierro MCHC (RBC) [Mass/Vol] 31.2 g/dL Normal 29.9-35.2 [facility] Comment on above: Performed By: #### C BC #### [facility] [address] [place] [address] Dr. Tg Fierro MCV (RBC) [Entitic vol] 97.0 fL Normal 81.0-99.0 [facility] Comment on above: Performed By: #### C BC #### [facility] [address] [place] [address] Dr. Tg Fierro MONO # 0.5 103/ul Normal 0.3-0.8 [facility] Comment on above: Performed By: #### C BC #### [facility] [address] [place] [address] Dr. Tg Fierro Monocytes/100 WBC (Bld) 6.3 % Normal 1.7-12.0 [facility] Comment on above: Performed By: #### C BC #### [facility] [address] [place] [address] Dr. Tg Fierro NEUT # 4.5 103/ul Normal 1.4-6.5 [facility] Comment on above: Performed By: #### C BC #### [facility] [address] [place] [address] Dr. Tg Fierro Neutrophils/100 WBC (Bld) 57.9 % Normal 43.0-75.0 [facility] Comment on above: Performed By: #### C BC #### [facility] [address] [place] [address] Dr. Tg Fierro Platelet mean volume (Bld) [Entitic vol] 8.6 fL Critically low 9.5-13.5 [facility] Comment on above: Performed By: #### C BC #### [facility] [address] [place] [address] Dr. Tg Fierro PLT 295 103/ul Normal 150-450 [facility] Comment on above: Performed By: #### C BC #### [facility] [address] [place] [address] Dr. Tg Fierro RBC 4.36 106/ul Normal 4.20-5.40 [facility] Comment on above: Performed By: #### C BC #### [facility] [address] [place] [address] Dr. Tg Fierro WBC 7.8 103/ul Normal 4.0-11.0 [facility] Comment on above: Performed By: #### C BC #### [facility] [address] [place] [address] Dr. Tg Fierro PROF 14(COMP METB)on 022 Albumin [Mass/Vol] 4.5 g/dL Normal 3.4-5.0 [facility] Comment on above: Performed By: #### C MP #### [facility] [address] [place] [address] Dr. Tg Fierro Albumin/Globulin [Mass ratio] 1.5 {ratio} Normal [facility] Comment on above: Performed By: #### C MP #### [facility] [address] [address] [address] Tg Fierro ALP [Catalytic activity/Vol] 62 U/L Normal 46-116 [facility] Comment on above: Performed By: #### C MP #### [facility] [address] [address] [address] Tg Fierro ALT [Catalytic activity/Vol] 25 U/L Normal 14-59 [facility] Comment on above: Performed By: #### C MP #### [facility] [address] [address] [address] Tg Fierro Anion gap [Moles/Vol] 10.6 mmol/L Normal [facility] Comment on above: Performed By: #### C MP #### [facility] [address] [address] [address] Tg Fierro AST [Catalytic activity/Vol] 12 U/L Critically low 15-37 [facility] Comment on above: Performed By: #### C MP #### [facility] [address] [place] [address] Dr. Tg Fierro Bilirubin [Mass/Vol] 0.5 mg/dL Normal 0.2-1.0 [facility] Comment on above: Performed By: #### C MP #### [facility] [address] [place] [address] Dr. Tg Fierro Calcium [Mass/Vol] 9.8 mg/dL Normal 8.5-10.1 [facility] Comment on above: Performed By: #### C MP #### [facility] [address] [place] [address] Dr. Tg Fierro Chloride [Moles/Vol] 102 mmol/L Normal 98-107 [facility] Comment on above: Performed By: #### C MP #### [facility] [address] [address] [address] Tg Fierro CO2 [Moles/Vol] 31.8 mmol/L Normal 21.0-32.0 [facility] Comment on above: Performed By: #### C MP #### [facility] [address] [address] [address] Tg Fierro Creatinine [Mass/Vol] 0.88 mg/dL Normal 0.55-1.02 [facility] Comment on above: Performed By: #### C MP #### [facility] [address] [place] [address] Dr. Tg Fierro EGFR-AF GRENADIAN >60 Normal >=60 [facility] Comment on above: Performed By: #### C MP #### [facility] [address] [address] [address] Tg Fierro EGFR-NON AF GRENADIAN >60 Normal >=60 [facility] Comment on above: Performed By: #### C MP #### [facility] [address] [place] [address] Dr. Tg Fierro Globulin (S) [Mass/Vol] 3.1 g/dL Normal [facility] Comment on above: Performed By: #### C MP #### [facility] [address] [place] [address] Dr. Tg Fierro Glucose [Mass/Vol] 187 mg/dL Critically high 74-106 [facility] Comment on above: Performed By: #### C MP #### [facility] [address] [place] [address] Dr. Tg Fierro Potassium [Moles/Vol] 4.4 mmol/L Normal 3.5-5.1 [facility] Comment on above: Performed By: #### C MP #### [facility] [address] [place] [address] Dr. Tg Fierro Protein [Mass/Vol] 7.6 g/dL Normal 6.4-8.[address] [facility] Comment on above: Performed By: #### C MP #### [facility] [address] [place] [address] Dr. Tg Fierro Sodium [Moles/Vol] 140 mmol/L Normal 136-[address] [facility] Comment on above: Performed By: #### C MP #### [facility] [address] [place] [address] Dr. Tg Fierro Urea nitrogen [Mass/Vol] 14.0 mg/dL Normal 7.0-18.0 [facility] Comment on above: Performed By: #### C MP #### [facility] [address] [place] [address] Dr. Tg Fierro Urea nitrogen/Creatinine [Mass ratio] 15.9 mg/mg Normal [facility] Comment on above: Performed By: #### C MP #### [facility] [address] [place] [address] Dr. Tg Fierro SED RATE WESTERGRENon 2021 SED RATE 5 mm/hr Normal <=30 [facility] Comment on above: Performed By: #### S EDR #### [facility] [address] [place] [address] Dr. Tg Fierro CBC AUTO DIFFon 02-07-2022 BASO # 0.0 103/ul Normal 0.0-0.1 [facility] Comment on above: Performed By: #### P T #### [facility] [address] [place] [address] Dr. Tg Fierro Basophils/100 WBC (Bld) 0.6 % Normal 0.2-2.0 [facility] Comment on above: Performed By: #### P T #### [facility] [address] [place] [address] Dr. Tg Fierro EO # 0.4 103/ul Normal 0.0-0.7 [facility] Comment on above: Performed By: #### P T #### [facility] [address] [place] [address] Dr. Tg Fierro Eosinophils/100 WBC (Bld) 5.4 % Normal 0.9-7.0 [facility] Comment on above: Performed By: #### P T #### [facility] [address] [place] [address] Dr. Tg Fierro Erythrocyte distribution width (RBC) [Ratio] 13.5 % Normal 11.0-15.0 [facility] Comment on above: Performed By: #### P T #### [facility] [address] [place] [address] Dr. Tg Fierro Hematocrit (Bld) [Volume fraction] 39.4 % Normal 36.0-48.0 [facility] Comment on above: Performed By: #### P T #### [facility] [address] [place] [address] Dr. Tg Fierro Hemoglobin (Bld) [Mass/Vol] 12.8 g/dL Normal 12.0-16.0 [facility] Comment on above: Performed By: #### P T #### [facility] [address] [place] [address] Dr. Tg Fierro IG # 0.02 10e3/ul Normal 0.00-0.03 [facility] Comment on above: Performed By: #### P T #### [facility] [address] [place] [address] Dr. Tg Fierro IG % 0.3 % Normal 0.0-0.5 [facility] Comment on above: Performed By: #### P T #### [facility] [address] [place] [address] Dr. Tg Fierro LYMPH # 2.4 103/ul Normal 1.2-3.8 [facility] Comment on above: Performed By: #### P T #### [facility] [address] [place] [address] Dr. Tg Fierro Lymphocytes/100 WBC (Bld) 36.2 % Normal 20.5-60.0 [facility] Comment on above: Performed By: #### P T #### [facility] [address] [place] [address] Dr. Tg Fierro MANUAL DIFF REQ NO Normal [facility] Comment on above: Performed By: #### P T #### [facility] [address] [place] [address] Dr. Tg Fierro MCH (RBC) [Entitic mass] 31.0 pg Normal 26.7-34.0 [facility] Comment on above: Performed By: #### P T #### [facility] [address] [place] [address] Dr. Tg Fierro MCHC (RBC) [Mass/Vol] 32.5 g/dL Normal 29.9-35.2 [facility] Comment on above: Performed By: #### P T #### [facility] [address] [address] [address] Tg Fierro MCV (RBC) [Entitic vol] 95.4 fL Normal 81.0-99.0 [facility] Comment on above: Performed By: #### P T #### [facility] [address] [address] [address] Tg Fierro MONO # 0.5 103/ul Normal 0.3-0.8 [facility] Comment on above: Performed By: #### P T #### [facility] [address] [address] [address] Tg Fierro Monocytes/100 WBC (Bld) 8.0 % Normal 1.7-12.0 [facility] Comment on above: Performed By: #### P T #### [facility] [address] [place] [address] Dr. Tg Fierro NEUT # 3.3 103/ul Normal 1.4-6.5 [facility] Comment on above: Performed By: #### P T #### [facility] [address] [place] [address] Dr. Tg Fierro Neutrophils/100 WBC (Bld) 49.5 % Normal 43.0-75.0 [facility] Comment on above: Performed By: #### P T #### [facility] [address] [address] [address] Tg Fierro Platelet mean volume (Bld) [Entitic vol] 8.7 fL Critically low 9.5-13.5 [facility] Comment on above: Performed By: #### P T #### [facility] [address] [address] [address] Tg Fierro PLT 276 103/ul Normal 150-450 [facility] Comment on above: Performed By: #### P T #### [facility] [address] [place] [address] Dr. Tg Fierro RBC 4.13 106/ul Critically low 4.20-5.40 [facility] Comment on above: Performed By: #### P T #### [facility] [address] [address] [address] Tg Fierro WBC 6.7 103/ul Normal 4.0-11.0 [facility] Comment on above: Performed By: #### P T #### [facility] [address] [address] [address] Tg Fierro GLYCOHEMOGLOBIN A1Con 2021 ADA RECOMMENDATION SEE BELOW Normal [facility] Comment on above: Result Comment: ADA RECOMMENDED LIMIT 4.0 - 6.0 ADA THERAPEUTIC TARGET < 7.0 ACTION SUGGESTED > 7.0 Performed By: #### A 1C #### [facility] [address] [place] [address] Dr. Tg Fierro Glucose [Mass/Vol] 151 mg/dL Normal [facility] Comment on above: Performed By: #### A 1C #### [facility] [address] [place] [address] Dr. Tg Fierro HbA1c (Bld) [Mass fraction] 6.9 % Critically high 4.5-6.2 [facility] Comment on above: Performed By: #### A 1C #### [facility] [address] [place] [address] Dr. Tg Fierro PROF 14(COMP METB)on 022 Albumin [Mass/Vol] 3.8 g/dL Normal 3.4-5.0 [facility] Comment on above: Performed By: #### P T #### [facility] [address] [place] [address] Dr. Tg Fierro Albumin/Globulin [Mass ratio] 1.3 {ratio} Normal [facility] Comment on above: Performed By: #### P T #### [facility] [address] [place] [address] Dr. Tg Fierro ALP [Catalytic activity/Vol] 43 U/L Critically low 46-116 [facility] Comment on above: Performed By: #### P T #### [facility] [address] [place] [address] Dr. Tg Fierro ALT [Catalytic activity/Vol] 19 U/L Normal 14-59 [facility] Comment on above: Performed By: #### P T #### [facility] [address] [address] [address] Tg Fierro Anion gap [Moles/Vol] 13.7 mmol/L Normal [facility] Comment on above: Performed By: #### P T #### [facility] [address] [address] [address] Tg Fierro AST [Catalytic activity/Vol] 11 U/L Critically low 15-37 [facility] Comment on above: Performed By: #### P T #### [facility] [address] [address] [address] Tg Fierro Bilirubin [Mass/Vol] 0.4 mg/dL Normal 0.2-1.0 [facility] Comment on above: Performed By: #### P T #### [facility] [address] [place] [address] Dr. Tg Fierro Calcium [Mass/Vol] 9.1 mg/dL Normal 8.5-10.1 [facility] Comment on above: Performed By: #### P T #### [facility] [address] [address] [address] Tg Fierro Chloride [Moles/Vol] 104 mmol/L Normal 98-107 [facility] Comment on above: Performed By: #### P T #### [facility] [address] [address] [address] Tg Fierro CO2 [Moles/Vol] 28.5 mmol/L Normal 21.0-32.0 [facility] Comment on above: Performed By: #### P T #### [facility] [address] [address] [address] Tg Fierro Creatinine [Mass/Vol] 0.77 mg/dL Normal 0.55-1.02 [facility] Comment on above: Performed By: #### P T #### [facility] [address] [address] [address] Tg Fierro EGFR-AF GRENADIAN >60 Normal >=60 [facility] Comment on above: Performed By: #### P T #### [facility] [address] [address] [address] Tg Fierro EGFR-NON AF GRENADIAN >60 Normal >=60 [facility] Comment on above: Performed By: #### P T #### [facility] [address] [address] [address] Tg Fierro Globulin (S) [Mass/Vol] 3.0 g/dL Normal [facility] Comment on above: Performed By: #### P T #### [facility] [address] [address] [address] Tg Fierro Glucose [Mass/Vol] 124 mg/dL Critically high 74-106 [facility] Comment on above: Performed By: #### P T #### [facility] [address] [place] [address] Dr. Tg Fierro Potassium [Moles/Vol] 4.2 mmol/L Normal 3.5-5.1 [facility] Comment on above: Performed By: #### P T #### [facility] [address] [place] [address] Dr. Tg Fierro Protein [Mass/Vol] 6.8 g/dL Normal 6.4-8.2 [facility] Comment on above: Performed By: #### P T #### [facility] [address] [place] [address] Dr. Tg Fierro Sodium [Moles/Vol] 142 mmol/L Normal 136-[address] [facility] Comment on above: Performed By: #### P T #### [facility] [address] [place] [address] Dr. Tg Fierro Urea nitrogen [Mass/Vol] 12.0 mg/dL Normal 7.0-18.0 [facility] Comment on above: Performed By: #### P T #### [facility] [address] [place] [address] Dr. Tg Fierro Urea nitrogen/Creatinine [Mass ratio] 15.6 mg/mg Normal [facility] Comment on above: Performed By: #### P T #### [facility] [address] [address] [address] [facility] 8 mm/hr Normal <=30 [facility] Comment on above: Performed By: #### C MP #### [facility] [address] [address] [address] Tg Fierro COVID Quick Testingon 2020 Result Positive iovox Other Vital Signs Date Time Vital Sign Value Performing Clinician Facility 08-13-2023 10:47-0500 Blood Pressure Location Renato SANTACRUZ [facility] 08-13-2023 10:47-0500 Diastolic blood pressure 62 mm[Hg] Renato SANTACRUZ [facility] 08-13-2023 10:47-0500 Heart rate 82 /min Renatopower SANTACRUZ [facility] 08-13-2023 10:47-0500 Respiratory rate 16 /min Renato SANTACRUZ [facility] 08-13-2023 10:47-0500 Systolic blood pressure 105 mm[Hg] Renato SANTACRUZ [facility] 08-07-2023 09:48-0500 Body height 160 cm Jayme Perez MD Work Phone: [facility] 08-07-2023 09:48-0500 Body mass index (BMI) [Ratio] 24.45 kg/m2 Jayme Perez MD Work Phone: [facility] 08-07-2023 09:48-0500 Body weight 62.6 kg Jayme Perez MD Work Phone: [facility] 08-07-2023 09:48-0500 Heart rate 57 /min Jayme Perez MD Work Phone: [facility] 08-07-2023 09:48-0500 SaO2% (BldA) [Mass fraction] 98 % Jayme Perez MD Work Phone: [facility] 07-25-2023 09:20-0500 Body height 160.02 cm Lou Glover Other [employer] Other 07-25-2023 09:20-0500 Body mass index (BMI) [Ratio] 23.91 kg/m2 Lou Glover Other [facility] Other 07-25-2023 09:20-0500 Body temperature 97.7 [degF] Lou Glover Other [facility] Other 07-25-2023 09:20-0500 Body weight 61.24 kg Lou Glover Other [facility] Other 07-25-2023 09:20-0500 Diastolic blood pressure 74 mm[Hg] Lou Glover Other [facility] Other 07-25-2023 09:20-0500 Respiratory rate 18 /min Lou Glover Other [facility] Other 07-25-2023 09:20-0500 SaO2% (BldA) [Mass fraction] 96 % Lou Glover Other [facility] Other 07-25-2023 09:20-0500 Systolic blood pressure 120 mm[Hg] Lou Glover Other [facility] Other 03-26-2023 13:15-0400 Body height 160.02 cm MD Jayme Perez Work Phone: [facility] 03-26-2023 13:15-0400 Body temperature 98.2 [degF] MD Jayme Perez Work Phone: [facility] 03-26-2023 13:15-0400 Body weight 66 kg MD Jayme Perez Work Phone: [facility] 03-26-2023 13:15-0400 Diastolic blood pressure 71 mm[Hg] MD Jayme Perez Work Phone: [facility] 03-26-2023 13:15-0400 Heart rate 87 /min MD Jayme Perez Work Phone: [facility] 03-26-2023 13:15-0400 Respiratory rate 16 /min MD Jayme Perez Work Phone: [facility] 03-26-2023 13:15-0400 SaO2% (BldA) [Mass fraction] 97 % MD Jayme Perez Work Phone: [facility] 03-26-2023 13:15-0400 Systolic blood pressure 117 mm[Hg] MD Jayme Perez Work Phone: [facility] 05-21-2021 13:15-0500 Body height 160.02 cm Astridsabina Baker Other [facility] Other 05-21-2021 13:15-0500 Body mass index (BMI) [Ratio] 23.91 kg/m2 Astrid Baker Other [facility] Other 05-21-2021 13:15-0500 Body temperature 97.3 [degF] Astrid Olivia Other [facility] Other 05-21-2021 13:15-0500 Body weight 61.24 kg Astrid Olivia Other [facility] Other 05-21-2021 13:15-0500 SaO2% (BldA) [Mass fraction] 94 % Astrid Baker Other [facility] Other Encounters Encounter Date Encounter Type Care Provider Facility Start: 08-20-2023 Clinisync Result Encounter Generic External Data Provider [facility] External [facility] Unsolicited Start: 08-20-2023 Clinisync Result Encounter Generic External Data Provider [facility] External Department Unsolicited Start: 08-14-2023 End: 08-15-2023 ambulatory Renatopower SANTACRUZ Facility:[id number] Start: 08-13-2023 End: 08-14-2023 ambulatory Renato Ness [facility]Z Facility:[facility] Start: 08-13-2023 End: 08-13-2023 Patient encounter procedure Renatopower SANTACRUZ [facility] Start: 08-07-2023 End: 08-07-2023 ambulatory AJYME PEREZ Not Available Start: 08-07-2023 End: 08-07-2023 [...] (CMS/HCC); Microalbuminuria; Former smoker; 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, adult; residential current use of anticoagulant; Psoriatic arthropathy (CMS/HCC); Gastroesophageal reflux disease without esophagitis Start: 07-30-2023 End: 07-30-2023 ambulatory JAYME PEREZ Not Available Start: 07-25-2023 End: 07-25-2023 ambulatory Lou Glover Other [facility] Other Start: 07-25-2023 Office outpatient vi sit 25 minutes Lou Glover [facility] Start: 07-10-2023 End: 07-10-2023 ambulatory FELICIA D ZAHLER Not Available Start: 07-02-2023 End: 07-02-2023 ambulatory FELICIA D CORETTAHLER Not Available Start: 06-25-2023 End: 06-25-2023 ambulatory FELICIA D CORETTAHLER Not Available Start: 06-18-2023 End: 06-18-2023 ambulatory FELICIA D CORETTAHLER Not Available Start: 04-07-2023 End: 04-07-2023 ambulatory Williams Shepherd Facility:[facility] Start: 04-07-2023 End: 04-07-2023 Departed Referred MD Jayme Perez Work Phone: [facility] [place] Start: 04-07-2023 End: 04-08-2023 ambulatory MD Jayme Perez Work Phone: [facility] Work Phone: Start: 03-26-2023 End: 03-26-2023 ambulatory Williams Shepherd Facility:[facility] Start: 03-26-2023 End: 03-26-2023 Patient encounter procedure MD Jayme Perez Work Phone: [facility] Work Phone: Start: 03-20-2023 End: 03-21-2023 ambulatory Williams SHEPHERD Facility:[facility] Start: 03-20-2023 End: 03-20-2023 Lab Drop off Williams SHEPHERD [facility] Start: 03-20-2023 End: 03-20-2023 Patient encounter procedure Williams SHEPHERD [facility] Start: 02-03-2023 End: 02-04-2023 ambulatory Williams [...] 05-21-2021 End: 05-21-2021 ambulatory Astrid Baker Other [facility] Other Start: 05-21-2021 Office outpatient vi sit 15 minutes Astrid Baker [facility] Procedures Date Procedure Procedure Detail Performing Clinician Start: 08-20-2023 ALL BUN Generic Ex ternal Data Provider Start: 08-20-2023 ALL CARBON DIOXIDE Gene vinny External Data Provider Start: 08-20-2023 ALL CHLORIDE Generic Ex ternal Data Provider Start: 08-20-2023 ALL PHOSPHOROUS Generic External Data Provider Start: 08-20-2023 ALL SODIUM Generic Ex ternal Data Provider Start: 08-20-2023 ALL URIC ACID Generic E xternal Data Provider Start: 08-20-2023 [facility] CALCIUM Generic Ex ternal Data Provider Start: 08-20-2023 [facility] CREATININE Generic External Data Provider Start: 08-26-2019 Extracorporeal shock wave lithotripsy of calculus of kidney [facility] Start: 04-12-2016 Cystoscopic laser lithotripsy of ureteric [...] stent into ureter Williams SHEPHERD Abdominal hysterectomy Patjarad SANTACRUZ Appendectomy Renato SANTACRUZ Extraction of cataract Bhavesh SANTACRUZ Partial lobectomy of lung Pa andreyk ANGELITO Tonsillectomy Renato SANTACRUZ Plan of Treatment Date Care Activity Detail Author Start: 05-19-2025 Glaucoma screening Diabetes: Retinopathy Screening [facility] Start: 07-12-2024 ambulatory Ambulatory Facility:[facility] Start: 05-22-2024 Medicare Annual Wellness (AWV) Medicare Annual Wellness (AWV) [facility] Start: 10-14-2023 ambulatory Ambulatory Facility:[facility] Start: 09-01-2023 End: 09-01-2023 Patient encounter procedure 09/01/2023 10:30 AM EST Office Visit [facility] [address] [place] [address] Felicia Farmer, DO [address] [place] [address] [facility] Start: 05-06-2023 Hemoglobin A1c measurement Diabetes: Hemoglobin A1C [facility] Start: 04-07-2023 Abdomen endoscopy OR Cysto/Retro/Stent/Stone/ Holmium Laser (Right) [facility] Start: 03-14-2023 Influenza vaccination Influenza Vaccine (#1) [facility] Start: 1951 Pneumococcal Vaccine: 65+ Years (1 - PCV) Pneumococcal Vaccine: 65+ Years (1 - PCV) [facility] Immunizations Immunization Date Immunization Notes Care Provider Yaya oswald NEGATED: Highlighted row has not occurred!08-13-2023 influenza virus vaccine, unspecified formulation Renato SANTACRUZ [facility] NEGATED: Highlighted row has not occurred!08-13-2023 SARS-CoV-2 mRNA (tozinameran 5y-11y) vaccine Renato SANTACRUZ [facility] NEGATED: Highlighted row has not occurred!09-21-2019 influenza virus vaccine, live, attenuated, for intranasal use [facility] NEGATED: Highlighted row has not occurred!08-20-2019 influenza virus vaccine, live, attenuated, for intranasal use [employer] [facility] Payers Date Payer Category Payer Self-pay [id number] 2022 Unknown [employer] [id number] 2022-Present [address] [address] [place] [address] [id number] 2022 Medicare [id number] 2002 Medicare MEDICARE MEDICAR E PART B [id number] 2002-[place] [address] Medicare [id number] 1959 Medicare [id number] 2.16.840.1.491424.19 1959 Unknown [id number] 1946 Unknown [id number] 2.16.840.1.761822.3.579.2.59 3 1946 Unknown [id number] 2.16.840.1.589083.3.579.2.59 3 1946 Unknown [id number] 2.16.840.1.193101.3.579.2.59 3 1946 Unknown [id number] 2.16.840.1.411432.3.579.2.59 3 1946 Unknown [id number] 2.16.840.1.311534.3.579.2.59 3 1946 Unknown [id number] 2.16.840.1.197923.3.579.2.59 3 1946 Unknown [id number] 2.16.840.1.968230.3.579.2.59 3 1946 Unknown [id number] 2.16.840.1.584585.3.579.2.59 3 1946 Unknown [id number] 2.16.840.1.968746.3.579.2.59 3 1946 Unknown [id number] 2.16.840.1.809329.3.579.2.59 3 1946 Unknown [id number] 2.16.840.1.231103.3.579.2.59 3 1946 Unknown [id number] 2.16.840.1.257608.3.579.2.59 3 1946 Unknown [id number] 2.16.840.1.423000.3.579.2.59 3 1946 Unknown [id number] 2.16.840.1.353649.3.579.2.12 59 1946 Unknown [id number] 2.16.840.1.554925.3.579.2.12 59 1946 Unknown [id number] 2.16.840.1.851228.3.579.2.12 59 1946 Unknown [id number] 2.16.840.1.870601.3.579.2.12 59 1946 Unknown [id number] 2.16.840.1.496840.3.579.2.12 59 1946 Unknown [id number] 2.16.840.1.570520.3.579.2.12 59 1946 Unknown [id number] 2.16.840.1.745877.3.579.2.72 7 1946 Unknown [id number] 2.16.840.1.437805.3.579.2.72 7 1946 Unknown [id number] 2.16.840.1.509834.3.579.2.72 7 1946 Unknown [id number] 2.16.840.1.863167.3.579.2.72 7 1946 Unknown [id number] 2.16.840.1.344018.3.579.2.72 7 1946 Unknown [id number] 2.16.840.1.120048.3.579.2.72 7 1946 Unknown [id number] 2.16.840.1.574488.3.579.2.72 7 Unknown [id number] 2.16.840.1.284615.3.579.2.53 1 Unknown [id number] 2.16.840.1.535863.3.579.2.53 1 Social History Date Type Detail Facility Sex Assigned At [facility] Other Start: 02-03-2023 End: 08-07-2023 Tobacco smoking status Ex-smoker (finding) [facility] Tobacco smoking status Never [facility] Start: 12-11-2022 End: 05-22-2023 Sex Assigned At Female [facility] Start: 1945 Sex Assigned At Female [facility] End: 07-14-1986 History of tobacco use Current smoker [facility] End: 07-14-1986 History of tobacco use Cigarette Smoker [facility] Start: 08-07-2023 Tobacco use and exposure Smokeless tobacco non-user [facility] Start: 08-07-2023 End: 08-14-2023 Alcohol intake Ex-drinker (finding) [facility] Start: [...] 08-13-2023 Functional Status N/A [facility] Clinical Notes 02-21-2022 to 08-13-2023 Jayme Perez [...] including vitamins, herbs, eye drops, creams, and kxsg-deh-qakdwlw medicines. Any problems you or family members [...] provider tells you to take them. ?Taking xgok-udg-llmzncr medicines, vitamins, herbs, and supplements. Eating and [...] provider. Document Revised: 11/06/2022 Document Reviewed: 03/04/2022 [employer] Patient Education 2022 [employer]. Follow Up Care 08/12/2023 14:37:00 With:ANGELITO AGUIAR, Renato Arzola, URL Address: [facility] [address] , [place] [address]- [phone] When: Unknown Comments:sched ureteroscopyf/u w/ GPC scheduled 10/14/23 [facility] [place] 08-07-2023 History of Present illness Narrative Patient ID: Wilda eSn is a 78 y.o. female who presents [...] 36.1 (H) 9.0 - 11.6 sec Final [facility] INR 08/05/2023 3.67 Final Comment: DESIRED INR: [...] 0.55 - 1.02 mg/dL Final [facility] EGFR-AF GRE[place]DIAN 07/22/2023 >60 >=60 Final [facility] EGFR-NON AF GRENADIAN 07/22/2023 55 (L) >=60 Final BUN CREATININE [...] cardiovascular disease. Former smoker 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, adult residential current use of anticoagulant Chronic problem, that is monitored monthly, and be seen in the monthly INR results. documented in this encounter [facility] 07-25-2023 Evaluation note Encounter Date [...] care as directed rx of steroid and Wilmar, cool mist humidification. May use Tylenol as directed. Immediate eval for signs of respiratory distress, difficulty breathing poor PO intake, signs of dehydration, fever, or other concerning symptoms. Otherwise, follow up with PCP in 2-3 days. Patient verbalizes understanding and is agreeable to treatment plan. Patient sent home in stable condition. [employer] Other 08-11-2022 NotePROCEDURE: XR FOOT LT MIN 3 VIEWS COMPARISON: None. HISTORY: Pain in left foot FINDINGS: BONES:No acute fracture or dislocation. Mild enthesopathic spurring of the calcaneus. SOFT TISSUES:Negative. No visible soft tissue swelling. EFFUSION:None visible. OTHER: Negative. IMPRESSION: Mild enthesopathic spurring of the calcaneus Electronically authenticated by: BLANCA ZAVALA Date: 2022-02-21 [facility] App[facility]ments Appointment Date:07/12/2024 10:45:00 AM Scheduled Provider:Williams SHEPHERD MD Location:[facility] Appointment Type:URO Office Visit [facility] Evaluation + Plan note Future Appointments Appointment Date:07/12/2024 10:45:00 AM Scheduled Provider:Williams SHEPHERD MD Location:[facility] Appointment Type:URO Office Visit Diagnostic Tests Pending * Calculi Analysis [facility] App[facility]ments Appointment Date:10/14/2023 09:15:00 AM Scheduled Provider:Williams SHEPHERD MD [facility] Appoint[facility] Type:URO Office Visit Appointment Date:07/12/2024 10:45:00 AM Scheduled Provider:Williams SHEPHERD MD [facility] Appointment Type:URO Office Visit [facility] Evaluenxve noteNort [employer] Other evaluation noteNo assessment information available [facility] Work Phone: [email or web address] note* Diagnosis Chronic diastolic heart failure (CMS/HCC)- Primary Chronic diastolic heart failure 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 (CMS/HCC) Atrial fibrillation Type 2 diabetes mellitus with stage 3a chronic kidney disease, without long-term current use of insulin (HCC) ([facility]/HCC) Stage 3a chronic kidney disease (HCC) ([facility]) Microalbuminuria Proteinuria Former smoker Personal history of tobacco use, presenting hazards to health 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, adult residential current use of anticoagulant Psoriatic arthropathy ([facility]/HCC) Psoriatic arthropathy Gastroesophageal reflux disease without esophagitis Esophageal reflux documented in this encounter [facility] [employer] Other History general Narrative - Reported* Type Description Date Medical History Arthritis Medical History diabetes mallitus Surgical History cataract surgery [facility] [employer] Other Hospital course Narrative No data available for this section [facility] [employer] [facility] Discharge instructions No data available for this section [facility] [employer] Progress note No data available for this section [facility] [employer] Summary Purpose Family History No Family History [...] and content) DATE CREATED AUTHOR 12/20/2022 [facility] DATE CREATED AUTHOR AUTHOR'S ORGANIZ ATION 06/09/2023 [facility] DATE CREATED AUTHOR AUTHOR'S ORGANIZ ATION 08/08/2023 [facility] EPIC DATE CREATED AUTHOR AUTHOR'S ORGANIZ ATION 08/29/2023 [facility] Patient Care team informatio n (unrecognized section and content) Team Status: Active Member Role Status Dates Jayme Perez MD Primary Care Provider Active Team Status: Inactive Member Role Status Dates Jayme Perez MD Primary Care Provider Active Williams Shepherd MD Attending Provider Active 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 Relationship Specialty Start Date End Date Jayme Perez MD [address] [facility] [place] [address] PCP - General Family Medicine 11/25/22 Jayme Perez MD [address] [facility] [place] [address] PCP - ACO Reach 12/05/22 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 [employer] [facility]. provides no warranty or guarantee of the accuracy or completeness of information in this document.
[2023-09-01 10:57] LABS: INR 1.52; Prothrombin Time 15.7 sec (9.0-11.6)
== END 2023-09-01 09:25 | disposition home or self-care (01) ==
LOC: LAB 09:25
PROVIDERS: PCP Family Medicine; Visit Provider Family Medicine
DX: I48.0 Paroxysmal atrial fibrillation (principal); Z79.01 Long term (current) use of anticoagulants; Z51.81 Encounter for therapeutic drug level monitoring; L40.59 Other psoriatic arthropathy; Z79.899 Other long term (current) drug therapy
CPT/HCPCS: 36415; 85610

== ENCOUNTER 2023-09-16 10:17 | Outpatient (OUT) | payer MEDICARE, SELFPAY ==
[2023-09-16 10:53] LABS: Basophils Absolute Auto 0.1 10^3/uL (0.0-0.1); Basophils Percent Auto 1.2 % (0.2-2.0); Eosinophils Absolute Auto 0.7 10^3/uL (0.0-0.7); Eosinophils Percent Auto 12.1 % (0.9-7.0); Hematocrit 38.3 % (36.0-48.0); Immature Granulocytes Abs Auto 0.02 10^3/uL (0.00-0.03); Immature Granulocytes Pct Auto 0.4 % (0.0-0.5); Lymphocytes Percent Auto 36.1 % (20.5-60.0); Mean Corpuscular HGB Conc 31.3 g/dL (29.9-35.2); Mean Corpuscular Hemoglobin 30.5 pg (26.7-34.0); Mean Corpuscular Volume 97.5 fL (81.0-99.0); Mean Platelet Volume 8.9 fL (9.5-13.5); Monocytes Absolute Auto 0.5 10^3/uL (0.3-0.8); Neutrophils Absolute Auto 2.4 10^3/uL (1.4-6.5); Neutrophils Percent Auto 42.2 % (43.0-75.0); Platelet Count 322 10^3/uL (150-450); Red Blood Count 3.93 10^6/uL (4.20-5.40); Red Cell Distribution Width 13.9 % (11.0-15.0); White Blood Count 5.6 10^3/uL (4.0-11.0)
[2023-09-16 11:15] LABS: Erythrocyte Sedimentation Rate 16 mm/hr (<=30)
[2023-09-16 11:28] LABS: Alanine Aminotransferase 20 U/L (14-59); Albumin Globulin Ratio 1.1; Albumin Level 3.6 g/dL (3.4-5.0); Alkaline Phosphatase 49 U/L (46-116); Anion Gap 11.1; Aspartate Amino Transferase 14 U/L (15-37); BUN Creatinine Ratio 11.5; Bilirubin Total 0.5 mg/dL (0.2-1.0); Calcium 9.2 mg/dL (8.5-10.1); Carbon Dioxide 30.5 mmol/L (21.0-32.0); Chloride 103 mmol/L (98-107); Estimated GFR (African America >60 (>=60); Estimated GFR (Non-African Ame >60 (>=60); Globulin 3.2 g/dL; Glucose 124 mg/dL (74-106); Potassium 4.6 mmol/L (3.5-5.1); Sodium 140 mmol/L (136-145); Total Protein 6.8 g/dL (6.4-8.2)
== END 2023-09-16 10:18 | disposition home or self-care (01) ==
LOC: LAB 10:19
PROVIDERS: PCP Family Medicine; Visit Provider Internal Medicine Rheumatology
DX: I48.0 Paroxysmal atrial fibrillation (principal); Z79.01 Long term (current) use of anticoagulants; Z51.81 Encounter for therapeutic drug level monitoring; L40.59 Other psoriatic arthropathy; Z79.899 Other long term (current) drug therapy
CPT/HCPCS: 36415; 80053; 85025; 85610; 85652

== ENCOUNTER 2023-09-16 10:25 | Outpatient (OUT) | payer MEDICARE, SELFPAY ==
--- OUTSIDE RECORDS SUMMARY | 2023-09-16 10:49 | XMS_ITS | CCD ---
Author Name Unknown Address [address] [facility] [address] [place] [address] Organization [facility] Care Team Providers Care Paint Supervisor Name Role Phone Astrid Baker Unavailable CAYETANO, [...] PEREZ Primary Care Physician Unavail able MD Jayme Perez Primary Care Provider MD Williams Shepherd Attending Provider [phone] Williams Shepherd Admitting Unavailable Williams Shepherd Attending Unavailable Jayme Perez Primary Care Unavailable Williams Shepherd Attending Unavailable Jayme Perez Primary Care Unavailable Williams Shepherd Admitting Unavailable Lou Glover Unavailable Jayme Perez MD Primary Care Provider [phone] Jayme Perez MD Unavailable Williams SHEPHERD Attending Unavailable Williams SHEPHERD Attending Unavailable Renato SANTACRUZ Attending Unavailable Williams SHEPHERD Attending Unavailable Williams SHEPHERD Admitting Unavailable Williams SHEPHERD Attending Unavailable Renato SANTACRUZ Attending Unavailable Williams SHEPHERD Attending Unavailable Williams SHEPHERD Attending Unavailable FELICIA FARMER Attending Unavailable JAYME PEREZ Attending Unavailable JAYME PEREZ Attending Unavailable FELICIA FARMER Attending Unavailable FELICIA FARMER Attending Unavailable FELICIA FARMER Attending Unavailable FELICIA FARMER Attending Unavailable Allergies Allergy Classification Reported Allergen(s) Allergy Type Date of Onset Reaction(s) Facility (10 sources) Ciprofloxacin; Translations: [ciprofloxacin] Drug Allergy 02-19-20 anaphylaxis, Unknown (qualifier value) [facility] (1 source) sulfaSALAzine Drug Allergy rash [facility] Other (1 source) Ciprofloxacin Drug Allergy 03-30-20 13 [facility] (2 sources) Ketorolac; Translations: [Toradol] Drug Allergy 03-30-20 13 [facility] (2 sources) metroNIDAZOLE; Translations: [MetroGel] Drug Allergy 03-30-20 13 [facility] (1 source) NSAIDs Drug allergy (disorder) 03-30-20 13 [facility] (2 sources) pioglitazone; Translations: [Actos] Drug Allergy 03-30-20 13 [facility] (1 source) Sulfonamides (Antibiotic) Drug allergy (disorder) 03-30-20 13 [facility] (8 sources) Ketorolac; Translations: [ketorolac] Drug Allergy 03-26-20 Unknown (qualifier value), Nausea (finding) [facility] Comment on above: Severe (9 sources) Latex; Translations: [latex] Drug allergy 01-07-20 Blister of skin AND/OR mucosa (finding) [facility] (7 sources) Non-steroidal anti-inflammatory agent; Translations: [NSAIDs] Drug allergy 02-19-20 Unknown (qualifier value) [facility] (9 sources) pioglitazone; Translations: [pioglitazone] Drug Allergy 01-07-20 Unknown (qualifier value) [facility] (4 sources) Sulfonamides (Antibiotic); Translations: [sulfa drugs] Drug allergy Unknown (qualifier value) [facility] (6 sources) metroNIDAZOLE; Translations: [metronidazole] Drug Allergy 02-19-20 Redness of Skin [facility] (2 sources) Sulfonamides (Antibiotic); Translations: [Sulfa (Sulfonamide Antibiotics)] Allergy to substance 03-26-20 Rash [facility] (2 sources) NSAIDS (Non-Steroidal Anti-Inflamma; Translations: [NSAIDS (Non-Steroidal Anti-Inflamma] Allergy to substance 03-26-20 Anaphylaxis [facility] (1 source) Ciprofloxacin Drug Allergy 03-26-20 [facility] (1 source) Ketorolac Drug Allergy 03-26-20 [facility] (1 source) pioglitazone Drug Allergy 03-26-20 [facility] (1 source) Non-steroidal anti-inflammatory agent Drug allergy rash [facility] [employer] Other (4 sources) Substance with sulfonamide structure and antibacterial mechanism of action (substance) Drug allergy 02-19-20 rash [facility] Other (3 sources) Ketorolac Allergy to substance 01-07-20 Nausea Only [facility] (3 sources) Hydrocodone Bit-Homatrop Mbr Propensity to adverse reactions 08-07-19 Dizziness [facility] (3 sources) Medical Adhesive Remover Drug Allergy 02-19-20 [facility] Medications Current Medications Medication Drug Class(es) Dates Sig (Normalized) Sig (Original) acarbose 100 mg oral tablet (11 sources) alpha-Glucosidase Inhibitor Start: 08-17-2019 End: 02-03-2024 acarbose (Precose) 100 MG tablet Indications: Type 2 diabetes mellitus with stage 3a chronic kidney disease, without long-term current use of insulin (HCC) ([facility]/HCC) Take 1 tablet (100 mg) by mouth [...] Refill(s) 0 Start Date: 08/13/23 Status: Ordered [id number] 200 actuat albuterol 0.09 mg/actuat metered dose [...] Date: 09/19/20 Status: Ordered Cyanocobalamin-Liver Extract (Vitamin F10-Qqpbf) Tablet (1 source) Start: 03-26-2023 take 1 tablet by mouth once daily Cyanocobalamin-Liver Extract (Vitamin C75-Amimn) Tablet Active 1 TAB PO every day at noon March 25, 2023 11:00pm dextromethorphan hydrobromide 1.5 mg/ml / pyrilamine maleate 1.5 mg/ml oral solution (1 source) Uncompetitive Z-gyzbar-I-aspar muñoz Receptor Antagonist, Sigma-1 Agonist Start: 07-25-2023 take 10 mL by mouth every eight hours [place] DM 7.5-7.5 MG/5ML 10 mL Orally every [...] Status: Ordered take 1 capsule by [facility] once daily esomeprazole (NexIUM) [address] [...] without long-term current use of insulin (HCC) ([facility]/HCC) Take 1 tablet (1,000 mg) by mouth [...] Start: 08-12-2023 take 1 capsule by [facility] every twenty-four hours in the morning tamsulosin [...] 12-12-2022 12-12-2022 Chronic Other aftercare (1 source) long-term (current) use of anticoagulants; Translations: [SENIOR CARE CURRNT USE ANTICOAGULANTS] Onset: 12-11-2022 Episodic Other aftercare (5 sources) Encounter for therapeutic drug level monitoring; Translations: [[facility] DRUG [facility] MONITORING] Onset: 10-18-2022 Episodic Other aftercare (1 source) Other 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 (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) drug 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; Translations: [OTH MANAGER FAST FOOD CURRENT DRUG THERAPY] Onset: 10-31-2022 Episodic Other aftercare (6 sources) Long-term current use of anticoagulant; Translations: [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 anticoagulants] Onset: 07-21-2023 Episodic [...] 12-12-2022 12-12-2022 Episodic Other aftercare (1 source) 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 oral hypoglycemic drugs; Translations: [MANAGER FAST FOOD USE ORAL HYPOGLYCEMIC DX] Onset: 08-12-2022 Episodic Other aftercare (1 source) 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 insulin; Translations: [SENIOR CARE CURRENT USE OF INSULIN] Onset: 02-13-2022 Episodic [...] Facil ity Lab Reportson 08-27-2023 Lab Reports [id number] .00TIFF [facility] Lab Reportson 08-25-2023 Lab Reports [id number]#1 .00TIFF [facility] Lab Reports [id number]#1 .00TIFF [facility] Lab Reportson 08-22-2023 Lab Reports [id number] .00TIFF [facility] Lab Reportson 08-21-2023 Lab Reports [id number]#1 .00TIFF [facility] Lab Reports [id number]#1 .00TIFF Normal [facility] ALL BUNon 08-20-2023 Urea nitrogen [Mass/Vol] 12.0 mg/dL 7.0 - 18.0 mg/dL [facility] ALL CARBON DIOXIDEon 024 CO2 [Moles/Vol] 30.1 mmol/L 21.0 - 32.0 mmol/L [facility] ALL CHLORIDEon 08-20-2023 Chloride [Moles/Vol] 104 mmol/L 98 - 107 mmol/L [facility] ALL PHOSPHOROUSon 08-20-2023 Phosphate [Mass/Vol] 4.1 mg/dL 2.6 - 4.7 mg/dL [facility] ALL SODIUMon 08-20-2023 Sodium [Moles/Vol] 141 mmol/L 136 - 145 mmol/L [facility] ALL URIC ACIDon 08-20-2023 Urate [Mass/Vol] 4.4 mg/dL 2.6 - 6.0 mg/dL [facility] CALCIUMon 08-20-2023 Calcium [Mass/Vol] 9.1 mg/dL 8.5 - 10.1 mg/dL [facility] No Panel Informationon 08-20 [facility] CREATININEon 08-20-2023 Creatinine [Mass/Vol] 0.86 mg/dL 0.55 - 1.02 mg/dL [facility] GFR/1.73 sq M.predicted CKD-EPI (S/P/Bld) [Vol rate/Area] >60 60 - PINF [facility] EGFR-NON AF CYMRAES >60 60 - PINF [facility] Consent for Procedure/Surger yon 08-15-2023 Consent for Procedure/Surgery [id number] .00TIFF Normal [facility] ED Note-Physicianon 08-15-19 24 ED Note-Physician [id number]#1. 00TIFF Normal [facility] Lab Reportson 08-15-2023 Lab Reports [id number]#1. 00TIFF [facility] Lab Reports [id number]#1 .00TIFF Normal [facility] Lab Reports [id number]#1 .00TIFF Normal [facility] Operative Reporton Operative Report [id number]#1 .00TIFF Normal [facility] RAD - CT Reporton 08-15-2023 RAD - CT Report [id number]#1. 00TIFF [facility] Ambulatory Visit Summaryon 0 08-13-2023 Ambulatory Visit [...] [facility] [place] [address] [place] [address]- \.br\ You Need to Schedule the Following Appointments\.br \ Follow Up with ANGELITO AGUIAR, Renato Arzola, URL When: \.br\ Comments:\.br\ sched ureteroscopy\.br \ f/u w/ [facility]PC scheduled 10/14/23\.br\ Where:\.br\ [facility] [address]br\ [place] [address]-\.br\ [phone]\.br\ Medications\.br\ What How Much When Instructions\.br \ [...] murmur\.br\ History of uterine cancer\.br\ Hx of shelter use of blood thinners\.br\ Kidney stones\.br\ Nocturia\.br\ [...] including vitamins, herbs, eye drops, creams, and juzu-gnh-dgttogd medicines.\.br\ ? \.br\ Any problems you or [...] you to take them.\.br\ ? \.br\ Taking dvmu-won-zzugoex medicines, vitamins, herbs, and supplements.\.br \ Eating [...] including vitamins, herbs, eye drops, creams, and lvxf-vqj-bupxdqe medicines. ? Any problems you or family [...] tells you to take them. ? Taking haho-uxz-kueqtxh medicines, vitamins, herbs, and supplements. Eating and [...] the pieces (more content not included)... Normal Tab [facility] Urology Office/Clinic Noteon 08-13-2023 Urology Office/Clinic Note Chief Complaint Patient is here for follow up to [facility] ER HPI Staff Patient is here for f/u to [facility] ER on 08/12/23 due to distal [...] Hydronephrosis with renal and ureteral calculous obstruction) [facility] ER visit 08/12/23 due to R [...] abdominal pain) See #1 4. 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 States she did not take this last night. Advised pt not to take her dose today either. Follow-up With When Contact Information ANGELITO AGUIAR, Renato Arzola, [facility] [address] [place] [address] [phone] Additional Instructions: sched ureteroscopy f/u w/ [facility] scheduled 10/14/23 Patient Education Laser Therapy for Kidney Stones I, Amy Gallagher, personally scribed for Dr. Santacruz on 08/13/2023 11:35:03. . Documentation recorded by the scribe, Amy Gallagher, accurately reflects the services(s) I performed and decisions made by me. Authenticated by Dr. Santacruz on 08/13/2023 11:37:02. Problem List/Past Medical History Ongoi (more content not included)... Normal [facility] Comment on above: Result Comment: Elec tronically Signed By: Renato SANTACRUZ MD\.br\Date and Time Signed: 08/13/23 11:37 EST\.br\Electronically Co-Signed By: Amy Gallagher\.br\Date and Time Co-Signed: 08/13/23 11:35 EST COVID/FLU/RSV RT-PCRon 07-25 SARS-CoV-2 (COVID-19) RNA TREASURE+probe Ql (Unsp spec) Negative [facility] Other COVID/FLU/RSV RT-PCR Negative [facility] Other COVID/FLU/RSV RT-PCR Positive [facility] Other Calculus Analysison 03-27-20 23 Calcium oxalate dihydrate Infrared spectroscopy (Stone) [Mass fraction] 100 % Invalid Interpretation Code [facility] Comment on above: Performed By: #### 1 [id number] ####[facility] [address] [place] [address] Color (Stone) Roper Invalid Interpretation Code [facility] Comment on above: Performed By: #### 1 [id number] ####[address] [place] [address] Composition Comment Invalid Interpretation Code [facility] Comment on above: Result Comment: Perc entage (Represents the % composition) Performed By: #### 1 [id number] ####[address] [address] Disclaimer: Comment Invalid Interpretation Code [facility] Comment on above: Result Comment: This test was developed and its performance characteristics determined by [facility]. It has not been cleared or approved by the Food and Drug Administration. Performed at: [facility] [id number] PhD Silvestre Esquivel Performed By: #### 1 [id number] ####[address] [address] Laboratory comment Noam (Report) Comment Invalid Interpretation Code [facility] Comment on above: Result Comment: Coco goode questions regarding Calculi Analysis contact [facility] at: [phone]. Performed By: #### 1 [id number] ####[address] [address] Please Note: Comment Invalid Interpretation Code [facility] Comment on above: Result Comment: Calc javier report will follow via computer, mail or setter helper delivery. Performed By: #### 1 [id number] ####[address] [place] [address] Size (Stone) [Entitic vol] 6x4 Invalid Interpretation Code [facility] Comment on above: Result Comment: Sing le piece received. Performed By: #### 1 [id number] ####[address] [place] [address] Specimen source subject Nom Comment Invalid Interpretation Code [facility] Comment on above: Result Comment: Not provided Performed By: #### 1 [id number] ####[address] [place] [address] Stone Photo Comment Invalid Interpretation Code [facility] Comment on above: Result Comment: Phot ograph will follow under a separate cover Performed By: #### 1 [id number] ####[facility] [address] [place] [address] Weight (Stone) 49 mg Invalid Interpretation Code [facility] Comment on above: Performed By: #### 1 [id number] ####[facility] [address] [place] [address] Lab Reportson 03-27-2023 Lab Reports [id number]. 00CD:127 Normal [facility] Activated partial thrombopla stin time (aPTT) in platelet poor plasma by coagulation aOrdered By: Williams Shepherd on 03-26-2023 aPTT Coag (PPP) [Time] 35.9 s 25.1-36.5 [facility] Comment on above: A hematocrit value g reater than 55% may lead to inaccurate results in coagulation testing. Patients having hematocrit values >55% require a special collection tube for coagulation studies. Please contact the laboratory at [phone] for redraw instructions. Basic Metabolic Panelon 03-14 Anion gap [Moles/Vol] 13.0 mmol/L Normal 6.0-15.0 [facility] Comment on above: Performed By: #### P T, BMP, CBC, PTT #### [facility] [id number] [facility] Calcium [Mass/Vol] 10.0 mg/dL Normal 8.6-10.3 [facility] Comment on above: Result Comment: PERF ORMED BY: [facility] [address] [place] [address] PATHOLOGIST ADJUNCT MATHEMATICS INSTRUCTOR BERNIE GRAYSON M.D. Performed By: #### P T, BMP, CBC, PTT #### [facility] [address] [place] [address] [place] Chloride [Moles/Vol] 104 mmol/L Normal 98-107 [facility] Comment on above: Performed By: #### P T, BMP, CBC, PTT #### [facility] [address] [place] [address] [place] CO2 [Moles/Vol] 30.0 mmol/L Normal 21.0-31.0 [facility] Comment on above: Performed By: #### P T, BMP, CBC, PTT #### [facility] [address] [place] [address] [place] Creatinine [Mass/Vol] 0.85 mg/dL Normal 0.60-1.20 [facility] Comment on above: Performed By: #### P T, BMP, CBC, PTT #### [facility] [address] [place] [address] [place] GFR/1.73 sq M.predicted MDRD (S/P/Bld) [Vol rate/Area] mL/min/{1.73_m2} Normal [facility] Comment on above: Performed By: #### P T, BMP, CBC, PTT #### [facility] [address] Glucose [Mass/Vol] 111 mg/dL High 70-100 [facility] Comment on above: Result Comment: [place] Glucose Reference Range is dependent on time and content of last meal. Glucose of more than 200 mg/dL in a nonstressed, ambulatory subject supports the diagnosis of Diabetes Mellitus. ADA recommended reference range Performed By: #### P T, BMP, CBC, PTT #### [facility] [address] [place] [address] [place] Potassium [Moles/Vol] 5.0 mmol/L Normal 3.5-5.1 [facility] Comment on above: Performed By: #### P T, BMP, CBC, PTT #### [facility] [address] [place] [address] [place] Sodium [Moles/Vol] 142 mmol/L Normal 136-145 [facility] Comment on above: Performed By: #### P T, BMP, CBC, PTT #### [facility] [address] [place] [address] [place] Urea nitrogen [Mass/Vol] 12 mg/dL Normal 7-25 [facility] Comment on above: Performed By: #### P T, BMP, CBC, PTT #### [facility] [address] [place] [address] [place] Basophils Auto (Bld) [#/Vol] Ordered By: Williams Shepherd on 03-26-2023 Basophils (Bld) [#/Vol] 0.0 10*3/uL 0.0-0.2 [facility] Basophils/100 WBC Auto (Bld) Ordered By: Williams Shepherd on 03-26-2023 Basophils/100 WBC (Bld) 0.8 % . [facility] Calcium [Mass/volume] in Ser um or PlasmaOrdered By: Williams Shepherd on 03-26-2023 Calcium [Mass/Vol] 10.0 mg/dL 8.6-10.3 [facility] Carbon dioxide, total [Moles /volume] in Serum or PlasmaOrdered By: Williams Shepherd on 03-26-2023 CO2 [Moles/Vol] 30.0 mmol/L 21.0-31.0 [facility] Chloride [Moles/volume] in S fartun or PlasmaOrdered By: Williams Shepherd on 03-26-2023 Chloride [Moles/Vol] 104 mmol/L 98-107 [facility] Complete Blood Count Auto Di ffon 03-26-2023 Basophils (Bld) [#/Vol] 0.0 10*3/uL Normal 0.0-0.2 [facility] Comment on above: Result Comment: PERF ORMED BY: [facility] [address] [facility] [place] [address] PATHOLOGIST ADJUNCT MATHEMATICS INSTRUCTOR BERNIE GRAYSON M.D. Performed By: #### P T, BMP, CBC, PTT #### [facility] [address] [place] [address] [place] Basophils/100 WBC (Bld) 0.8 % Normal . [facility] Comment on above: Performed By: #### P T, BMP, CBC, PTT #### [facility] [address] [place] [address] [place] Eosinophils (Bld) [#/Vol] 0.3 10*3/uL Normal 0.0-0.45 [facility] Comment on above: Performed By: #### P T, BMP, CBC, PTT #### [address] Eosinophils/100 WBC (Bld) 4.3 % Normal . [facility] Comment on above: Performed By: #### P T, BMP, CBC, PTT #### [address] Erythrocyte distribution width (RBC) [Ratio] 14.8 % Normal 11.9-15.3 [facility] Comment on above: Performed By: #### P T, BMP, CBC, PTT #### [address] Hematocrit (Bld) [Volume fraction] 40.3 % Normal 34.0-46.4 [facility] Comment on above: Performed By: #### P T, BMP, CBC, PTT #### [address] Hemoglobin (Bld) [Mass/Vol] 13.3 g/dL Normal 11.8-15.4 [facility] Comment on above: Performed By: #### P T, BMP, CBC, PTT #### [address] Lymphocytes (Bld) [#/Vol] 2.2 10*3/uL Normal 1.00-4.8 [facility] Comment on above: Performed By: #### P T, BMP, CBC, PTT #### [address] Lymphocytes/100 WBC (Bld) 36.9 % Normal . [facility] Comment on above: Performed By: #### P T, BMP, CBC, PTT #### [address] MCH (RBC) [Entitic mass] 31.1 pg Normal 24.7-34.3 [facility] Comment on above: Performed By: #### P T, BMP, CBC, PTT #### [address] MCV (RBC) [Entitic vol] 94.4 fL Normal 80-100 [facility] Comment on above: Performed By: #### P T, BMP, CBC, PTT #### [address] Mean Corpuscular HGB Conc 32.9 g/dL Normal 32.0-35.0 [facility] Comment on above: Performed By: #### P T, BMP, CBC, PTT #### [address] Monocytes (Bld) [#/Vol] 0.5 10*3/uL Normal 0.0-0.8 [facility] Comment on above: Performed By: #### P T, BMP, CBC, PTT #### [address] Monocytes/100 WBC (Bld) 7.8 % Normal . [facility] Comment on above: Performed By: #### P T, BMP, CBC, PTT #### [address] Neutrophils (Bld) [#/Vol] 3.0 10*3/uL Normal 1.8-7.7 [facility] Comment on above: Performed By: #### P T, BMP, CBC, PTT #### [address] Neutrophils/100 WBC (Bld) 50.2 % Normal . [facility] Comment on above: Performed By: #### P T, BMP, CBC, PTT #### [address] NRBC% 0.3 /100{WBC} Normal 0-0.5 [facility] Comment on above: Performed By: #### P T, BMP, CBC, PTT #### [facility] [address] [place] [address] Platelet mean volume (Bld) [Entitic vol] 7.1 fL Normal 6.3-10.7 [facility] Comment on above: Performed By: #### P T, BMP, CBC, PTT #### [facility] [address] [place] [address] [place] Platelets (Bld) [#/Vol] 363 10*3/uL Normal 150-450 [facility] Comment on above: Performed By: #### P T, BMP, CBC, PTT #### [facility] [address] RBC (Bld) [#/Vol] 4.27 10*6/uL Normal 3.60-5.00 [facility] Comment on above: Performed By: #### P T, BMP, CBC, PTT #### [facility] [address] WBC (Bld) [#/Vol] 5.9 10*3/uL Normal 3.8-11.6 [facility] Comment on above: Performed By: #### P T, BMP, CBC, PTT #### [facility] [address] Creatinine [Mass/volume] in Serum or PlasmaOrdered By: Williams Shepherd on 03-26-2023 Creatinine [Mass/Vol] 0.85 mg/dL 0.60-1.20 [facility] ECG 12 lead ECGon 03-26-2023 ECG 12 lead ECG [facility] [address] [place] [address] [place] [address] Electrocardiograph Report Signed Patient: Wilda Sen MR#: [id number] 8 : 1945 Acct:[id number] Age/Sex: 77 / F ADM Date: 03/26/23 Loc: Room: Type: [facility] Attending Dr: Williams Shepherd MD Ordering Provider: [...] By Maru Whitehead DO 03/26 190 Normal [facility] Eosinophils Auto (Bld) [#/Vo l]Ordered By: Williams Shepherd on 03-26-2023 Eosinophils (Bld) [#/Vol] 0.3 10*3/uL 0.0-0.45 [facility] Eosinophils/100 WBC Auto (Bl d)Ordered By: Williams Shepherd on 03-26-2023 Eosinophils/100 WBC (Bld) 4.3 % . [facility] Erythrocyte distribution wid th Auto (RBC) [Ratio]Ordered By: Williams Shepherd on 03-26-2023 Erythrocyte distribution width (RBC) [Ratio] 14.8 % 11.9-15.3 [facility] Glucose [Mass/volume] in Ser um or PlasmaOrdered By: Williams Shepherd on 03-26-2023 Glucose [Mass/Vol] 111 mg/dL 70-100 [facility] Comment on above: ADA recommended refe rence rangeRandom Glucose Reference Range is dependent on time and content of last meal. Glucose of more than 200 mg/dL in a nonstressed, ambulatory subject supports the diagnosis of Diabetes Mellitus. Hematocrit Auto (Bld) [Volum e fraction]Ordered By: Williams Shepherd on 03-26-2023 Hematocrit (Bld) [Volume fraction] 40.3 % 34.0-46.4 [facility] Hemoglobin [Mass/volume] in BloodOrdered By: Williams Shepherd on 03-26-2023 Hemoglobin (Bld) [Mass/Vol] 13.3 g/dL 11.8-15.4 [facility] INR in Platelet poor plasma by Coagulation assayOrdered By: Williams Shepherd on 03-26-2023 INR Coag (PPP) [Relative time] 2.3 {INR} [facility] Comment on above: INR Therapeutic Rang e [...] RBC Auto (Bld) [#/Vol] 5.9 10*3/uL 3.8-11.6 [facility] Lymphocytes Auto (Bld) [#/Vo l]Ordered By: Williams Shepherd on 03-26-2023 Lymphocytes (Bld) [#/Vol] 2.2 10*3/uL 1.00-4.8 [facility] Lymphocytes/100 WBC Auto (Bl d)Ordered By: Williams Shepherd on 03-26-2023 Lymphocytes/100 WBC (Bld) 36.9 % . [facility] MCH Auto (RBC) [Entitic mass ]Ordered By: Williams Shepherd on 03-26-2023 MCH (RBC) [Entitic mass] 31.1 pg 24.7-34.3 [facility] MCHC Auto (RBC) [Mass/Vol]Or dered By: Williams Shepherd on 03-26-2023 MCHC (RBC) [Mass/Vol] 32.9 g/dL 32.0-35.0 [facility] MCV Auto (RBC) [Entitic vol] Ordered By: Williams Shepherd on 03-26-2023 MCV (RBC) [Entitic vol] 94.4 fL 80-100 [facility] Monocytes Auto (Bld) [#/Vol] Ordered By: Williams Shepherd on 03-26-2023 Monocytes (Bld) [#/Vol] 0.5 10*3/uL 0.0-0.8 [facility] Monocytes/100 WBC Auto (Bld) Ordered By: Williams Shepherd on 03-26-2023 Monocytes/100 WBC (Bld) 7.8 % . [facility] Neutrophils Auto (Bld) [#/Vo l]Ordered By: Williams Shepherd on 03-26-2023 Neutrophils (Bld) [#/Vol] 3.0 10*3/uL 1.8-7.7 [facility] Neutrophils/100 WBC Auto (Bl d)Ordered By: Williams Shepherd on 03-26-2023 Neutrophils/100 WBC (Bld) 50.2 % . [facility] No Panel InformationOrdered By: Williams Shepherd on 03-26-2023 Estimated GFR (CKD-EPI) > 60.0 mL/Min [facility] Creatinine Clearance (Chem N/A [facility] Nucleated erythrocytes [Pres ence] in Blood by Automated countOrdered By: Williams Shepherd on 03-26-2023 Nucleated RBC Auto Ql (Bld) 0.3 /100{WBC} 0-0.5 [facility] Partial Thromboplastin Timeo n 03-26-2023 aPTT Coag (Bld) [Time] 35.9 s Normal 25.1-36.5 [facility] Comment on above: Result Comment: A he matocrit value greater than 55% may lead to inaccurate results in coagulation testing. Patients having hematocrit values >55% require a special collection tube for coagulation studies. Please contact the laboratory at [phone] for redraw instructions. PERFORMED BY: [place] [address] PATHOLOGIST [employer] BERNIE GRAYSON M.D. Performed By: #### P T, BMP, CBC, PTT #### [address] Platelet mean volume Auto (B ld) [Entitic vol]Ordered By: Williams Shepherd on 03-26-2023 Platelet mean volume (Bld) [Entitic vol] 7.1 fL 6.3-10.7 [facility] Platelets Auto (Bld) [#/Vol] Ordered By: Williams Shepherd on 03-26-2023 Platelets (Bld) [#/Vol] 363 10*3/uL 150-450 [facility] Potassium [Moles/volume] in Serum or PlasmaOrdered By: Williams Shepherd on 03-26-2023 Potassium [Moles/Vol] 5.0 mmol/L 3.5-5.1 [facility] Prothrombin Time INRon 03-26 INR Coag (PPP) [Relative time] 2.3 {INR} Normal [facility] Comment on above: Result Comment: INR Therapeutic [...] #### P T, BMP, CBC, PTT #### [facility] [address] [id number] [facility] PT Coag (PPP) [Time] 26.6 s High 9.0-12.9 [facility] Comment on above: Result Comment: A he matocrit value greater than 55% may lead to inaccurate results in coagulation testing. Patients having hematocrit values >55% require a special collection tube for coagulation studies. Please contact the laboratory at [phone] for redraw instructions. Performed By: #### P T, BMP, CBC, PTT #### [facility] [address] [id number] [facility] Prothrombin time (PT)Ordered By: Williams Shepherd on 03-26-2023 PT Coag (PPP) [Time] 26.6 s 9.0-12.9 [facility] Comment on above: A hematocrit value g reater than 55% may lead to inaccurate results in coagulation testing. Patients having hematocrit values >55% require a special collection tube for coagulation studies. Please contact the laboratory at [phone] for redraw instructions. RBC Auto (Bld) [#/Vol]Ordere d By: Williams Shepherd on 03-26-2023 RBC (Bld) [#/Vol] 4.27 10*6/uL 3.60-5.00 [facility] Serum or plasma anion gap de terminationOrdered By: Williams Shepherd on 03-26-2023 Anion gap [Moles/Vol] 13.0 mmol/L 6.0-15.0 [facility] Sodium [Moles/volume] in Ser um or PlasmaOrdered By: Williams Shepherd on 03-26-2023 Sodium [Moles/Vol] 142 mmol/L 136-145 [facility] Urea nitrogen [Mass/volume] in Serum or PlasmaOrdered By: Williams Shepherd on 03-26-2023 Urea nitrogen [Mass/Vol] 12 mg/dL 02-04 [facility] WBC Auto (Bld) [#/Vol]Ordere d By: Williams Shepherd on 03-26-2023 WBC (Bld) [#/Vol] 5.9 10*3/uL 3.8-11.6 [facility] Consultation Noteon 03-17-20 Consultation Note [id number] .00CD:127 Normal [facility] Lab Reportson 02-12-2023 Lab Reports [id number] .00CD:127 [facility] RAD - MISCon 02-12-2023 RAD - MISC [id number] .00CD:127 Normal [facility] RAD - CT Reporton 02-05-2023 RAD - CT Report [id number] .00CD:127 Normal [facility] RAD - MISCon 02-05-2023 RAD - MISC [id number] .00CD:127 Normal [facility] Ambulatory Visit Summaryon 0 02-03-2023 Ambulatory [...] AGUIAR, Williams Venegas Where: [facility] Patient Educationon 02-04-20 Patient Education Urology [...] these instructions at home: Medicines ? Take eeae-gev-hfqxyje and prescription medicines only as told by [...] month follow up w/ CT scan done @[facility] on 01/15/23. CT scan shows partially [...] Williams Venegas, URL [address] [place], [place] [id number]- Additional Instructions: Patient Education Kidney Stones I, Fanny Bowen, personally scribed for Dr. Shepherd on 02/03/2023 12:04:03. . Documentation recorded by the scribe, Fanny Bowen, accurately reflects the services(s) I performed and decisions made by me. Authenticated by Dr. Shepherd on 02/03/2023 12:37:35. Portions of this record may have been created with voice recognition artificial intelligence software, specifically Modanisa, Incont and or StudySoup. Substitutions may have occurred due to the inherent limitations of voice recognition and artificial intelligence software. 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 Normal [facility] Comment on above: Result Comment: Elec tronically Signed By: Williams SHEPHERD MD\.br\Date and Time Signed: 02/03/23 12:39 EDT\.br\Electronically Co-Signed By: Fanny Bowen\.br\Date and Time Co-Signed: 02/03/23 12:04 EDT PROTIMEon 12-02-2022 INR Coag (PPP) [Relative time] 3.62 {INR} Normal [facility] Comment on above: Performed By: #### P T #### [facility] [address] [place] [address] Dr. Tg Fierro INR GUIDELINES SEE BELOW Normal [facility] Comment on above: Result Comment: LAURENCE RED INR: 2.0 - 3.0 CONDITIONS NOT LISTED BELOW 2.5 - 3.5 FOR PROSTHETIC HEART VALVE REPLACEMENT 2.5 - 3.5 RECURRENT THROMBOSIS Performed By: #### P T #### [facility] [address] [place] [address] Dr. Tg Fierro PT Coag (PPP) [Time] 35.7 s Critically high 9.0-11.6 [facility] Comment on above: Performed By: #### P T #### [facility] [address] [place] [address] Dr. Tg Fierro PROTIMEon 11-11-2022 INR Coag (PPP) [Relative time] 1.90 {INR} Normal [facility] Comment on above: Performed By: #### P T #### [facility] [address] [place] [address] Dr. Tg Fierro INR GUIDELINES SEE BELOW Normal [facility] Comment on above: Result Comment: LAURENCE RED INR: 2.0 - 3.0 CONDITIONS NOT LISTED BELOW 2.5 - 3.5 FOR PROSTHETIC HEART VALVE REPLACEMENT 2.5 - 3.5 RECURRENT THROMBOSIS Performed By: #### P T #### [facility] [address] [place] [address] Dr. Tg Fierro PT Coag (PPP) [Time] 19.4 s Critically high 9.0-11.6 [facility] Comment on above: Performed By: #### P T #### [facility] [address] [address] [address] Tg Fierro CBC AUTO DIFFon 10-25-2022 BASO # 0.0 103/ul Normal 0.0-0.1 [facility] Comment on above: Performed By: #### P T #### [facility] [address] [place] [address] Dr. Tg Fierro Basophils/100 WBC (Bld) 0.5 % Normal 0.2-2.0 [facility] Comment on above: Performed By: #### P T #### [facility] [address] [place] [address] Dr. Tg Fierro EO # 0.2 103/ul Normal 0.0-0.7 [facility] Comment on above: Performed By: #### P T #### [facility] [address] [place] [address] Dr. Tg Fierro Eosinophils/100 WBC (Bld) 2.7 % Normal 0.9-7.0 [facility] Comment on above: Performed By: #### P T #### [facility] [address] [place] [address] Dr. Tg Fierro Erythrocyte distribution width (RBC) [Ratio] 13.4 % Normal 11.0-15.0 [facility] Comment on above: Performed By: #### P T #### [facility] [address] [place] [address] Dr. Tg Fierro Hematocrit (Bld) [Volume fraction] 40.7 % Normal 36.0-48.0 [facility] Comment on above: Performed By: #### P T #### [facility] [address] [place] [address] Dr. Tg Fierro Hemoglobin (Bld) [Mass/Vol] 13.2 g/dL Normal 12.0-16.0 [facility] Comment on above: Performed By: #### P T #### [facility] [address] [place] [address] Dr. Tg Fierro IG # 0.03 10e3/ul Normal 0.00-0.03 [facility] Comment on above: Performed By: #### P T #### [facility] [address] [place] [address] Dr. Tg Fierro IG % 0.5 % Normal 0.0-0.5 [facility] Comment on above: Performed By: #### P T #### [facility] [address] [place] [address] Dr. Tg Fierro LYMPH # 2.1 103/ul Normal 1.2-3.8 [facility] Comment on above: Performed By: #### P T #### [facility] [address] [place] [address] Dr. Tg Fierro Lymphocytes/100 WBC (Bld) 34.9 % Normal 20.5-60.0 [facility] Comment on above: Performed By: #### P T #### [facility] [address] [place] [address] Dr. Tg Fierro MANUAL DIFF REQ NO Normal [facility] Comment on above: Performed By: #### P T #### [facility] [address] [place] [address] Dr. Tg Fierro MCH (RBC) [Entitic mass] 30.5 pg Normal 26.7-34.0 [facility] Comment on above: Performed By: #### P T #### [facility] [address] [place] [address] Dr. Tg Fierro MCHC (RBC) [Mass/Vol] 32.4 g/dL Normal 29.9-35.2 [facility] Comment on above: Performed By: #### P T #### [facility] [address] [place] [address] Dr. Tg Fierro MCV (RBC) [Entitic vol] 94.0 fL Normal 81.0-99.0 [facility] Comment on above: Performed By: #### P T #### [facility] [address] [place] [address] Dr. Tg Fierro MONO # 0.4 103/ul Normal 0.3-0.8 [facility] Comment on above: Performed By: #### P T #### [facility] [address] [place] [address] Dr. Tg Fierro Monocytes/100 WBC (Bld) 7.1 % Normal 1.7-12.0 [facility] Comment on above: Performed By: #### P T #### [facility] [address] [place] [address] Dr. Tg Fierro NEUT # 3.2 103/ul Normal 1.4-6.5 [facility] Comment on above: Performed By: #### P T #### [facility] [address] [place] [address] Dr. Tg Fierro Neutrophils/100 WBC (Bld) 54.3 % Normal 43.0-75.0 [facility] Comment on above: Performed By: #### P T #### [facility] [address] [place] [address] Dr. Tg Fierro Platelet mean volume (Bld) [Entitic vol] 8.7 fL Critically low 9.5-13.5 [facility] Comment on above: Performed By: #### P T #### [facility] [address] [place] [address] Dr. Tg Fierro PLT 295 103/ul Normal 150-450 [facility] Comment on above: Performed By: #### P T #### [facility] [address] [place] [address] Dr. Tg Fierro RBC 4.33 106/ul Normal 4.20-5.40 [facility] Comment on above: Performed By: #### P T #### [facility] [address] [place] [address] Dr. Tg Fierro WBC 5.9 103/ul Normal 4.0-11.0 [facility] Comment on above: Performed By: #### P T #### [facility] [address] [place] [address] Dr. Tg Fierro PROF 14(COMP METB)on 023 Albumin [Mass/Vol] 3.8 g/dL Normal 3.4-5.0 [facility] Comment on above: Performed By: #### C MP #### [facility] [address] [place] [address] Dr. Tg Fierro Albumin/Globulin [Mass ratio] 1.2 {ratio} Normal [facility] Comment on above: Performed By: #### C MP #### [facility] [address] [place] [address] Dr. Tg Fierro ALP [Catalytic activity/Vol] 49 U/L Normal 46-116 [facility] Comment on above: Performed By: #### C MP #### [facility] [address] [place] [address] Dr. Tg Fierro ALT [Catalytic activity/Vol] 21 U/L Normal 14-59 [facility] Comment on above: Performed By: #### C MP #### [facility] [address] [place] [address] Dr. Tg Fierro Anion gap [Moles/Vol] 13.3 mmol/L Normal [facility] Comment on above: Performed By: #### C MP #### [facility] [address] [place] [address] Dr. Tg Fierro AST [Catalytic activity/Vol] 14 U/L Critically low 15-37 [facility] Comment on above: Performed By: #### C MP #### [facility] [address] [place] [address] Dr. Tg Fierro Bilirubin [Mass/Vol] 0.5 mg/dL Normal 0.2-1.0 [facility] Comment on above: Performed By: #### C MP #### [facility] [address] [place] [address] Dr. Tg Fierro Calcium [Mass/Vol] 9.5 mg/dL Normal 8.5-10.1 [facility] Comment on above: Performed By: #### C MP #### [facility] [address] [place] [address] Dr. Tg Fierro Chloride [Moles/Vol] 104 mmol/L Normal 98-107 [facility] Comment on above: Performed By: #### C MP #### [facility] [address] [place] [address] Dr. Tg Fierro CO2 [Moles/Vol] 29.3 mmol/L Normal 21.0-32.0 [facility] Comment on above: Performed By: #### C MP #### [facility] [address] [address] [address] Tg Fierro Creatinine [Mass/Vol] 0.93 mg/dL Normal 0.55-1.02 [facility] Comment on above: Performed By: #### C MP #### [facility] [address] [address] [address] Tg Fierro EGFR-AF CYMRAES >60 Normal >=60 [facility] Comment on above: Performed By: #### C MP #### [facility] [address] [address] [address] Tg Fierro EGFR-NON AF CYMRAES 59 mL/min/1.73m2 Critically low >=60 [facility] Comment on above: Performed By: #### C MP #### [facility] [address] [place] [address] Dr. gT Fierro Globulin (S) [Mass/Vol] 3.2 g/dL Normal [facility] Comment on above: Performed By: #### C MP #### [facility] [address] [address] [address] Tg Fierro Glucose [Mass/Vol] 186 mg/dL Critically high 74-106 [facility] Comment on above: Performed By: #### C MP #### [facility] [address] [address] [address] Tg Fierro Potassium [Moles/Vol] 4.6 mmol/L Normal 3.5-5.1 [facility] Comment on above: Performed By: #### C MP #### [facility] [address] [address] [address] Tg Fierro Protein [Mass/Vol] 7.0 g/dL Normal 6.4-8.2 [facility] Comment on above: Performed By: #### C MP #### [facility] [address] [address] [address] Tg Fierro Sodium [Moles/Vol] 142 mmol/L Normal 136-145 [facility] Comment on above: Performed By: #### C MP #### [facility] [address] [address] [address] Tg Fierro Urea nitrogen [Mass/Vol] 15.0 mg/dL Normal 7.0-18.0 [facility] Comment on above: Performed By: #### C MP #### [facility] [address] [address] [address] Tg Fierro Urea nitrogen/Creatinine [Mass ratio] 16.1 mg/mg Normal [facility] Comment on above: Performed By: #### C MP #### [facility] [address] [place] [address] Dr. Tg Fierro SED RATE WESTERGRENon 2022 SED RATE 9 mm/hr Normal <=30 [facility] Comment on above: Performed By: #### C MP #### [facility] [address] [place] [address] Dr. Tg Fierro PROTIMEon 10-14-2022 INR Coag (PPP) [Relative time] 1.94 {INR} Normal [facility] Comment on above: Performed By: #### P T #### [facility] [address] [place] [address] Dr. Tg Fierro INR GUIDELINES SEE BELOW Normal [facility] Comment on above: Result Comment: LAURENCE RED INR: 2.0 - 3.0 CONDITIONS NOT LISTED BELOW 2.5 - 3.5 FOR PROSTHETIC HEART VALVE REPLACEMENT 2.5 - 3.5 RECURRENT THROMBOSIS Performed By: #### P T #### [facility] [address] [place] [address] Dr. Tg Fierro PT Coag (PPP) [Time] 19.8 s Critically high 9.0-11.6 [facility] Comment on above: Performed By: #### P T #### [facility] [address] [place] [address] Dr. Tg Fierro CBC AUTO DIFFon 09-24-2022 BASO # 0.1 103/ul Normal 0.0-0.1 [facility] Comment on above: Performed By: #### P T #### [facility] [address] [address] [address] Tg Fierro Basophils/100 WBC (Bld) 0.7 % Normal 0.2-2.0 [facility] Comment on above: Performed By: #### P T #### [facility] [address] [place] [address] Dr. Tg Fierro EO # 0.3 103/ul Normal 0.0-0.7 [facility] Comment on above: Performed By: #### P T #### [facility] [address] [place] [address] Dr. Tg Fierro Eosinophils/100 WBC (Bld) 3.6 % Normal 0.9-7.0 [facility] Comment on above: Performed By: #### P T #### [facility] [address] [place] [address] Dr. Tg Fierro Erythrocyte distribution width (RBC) [Ratio] 13.4 % Normal 11.0-15.0 [facility] Comment on above: Performed By: #### P T #### [facility] [address] [place] [address] Dr. Tg Fierro Hematocrit (Bld) [Volume fraction] 38.4 % Normal 36.0-48.0 [facility] Comment on above: Performed By: #### P T #### [facility] [address] [place] [address] Dr. Tg Fierro Hemoglobin (Bld) [Mass/Vol] 12.7 g/dL Normal 12.0-16.0 [facility] Comment on above: Performed By: #### P T #### [facility] [address] [place] [address] Dr. Tg Fierro IG # 0.05 10e3/ul Critically high 0.00-0.03 [facility] Comment on above: Performed By: #### P T #### [facility] [address] [place] [address] Dr. Tg Fierro IG % 0.7 % Critically high 0.0-0.5 [facility] Comment on above: Performed By: #### P T #### [facility] [address] [place] [address] Dr. Tg Fierro LYMPH # 2.6 103/ul Normal 1.2-3.8 [facility] Comment on above: Performed By: #### P T #### [facility] [address] [place] [address] Dr. Tg Fierro Lymphocytes/100 WBC (Bld) 34.2 % Normal 20.5-60.0 [facility] Comment on above: Performed By: #### P T #### [facility] [address] [place] [address] Dr. Tg Fierro MANUAL DIFF REQ NO Normal [facility] Comment on above: Performed By: #### P T #### [facility] [address] [place] [address] Dr. Tg Fierro MCH (RBC) [Entitic mass] 31.2 pg Normal 26.7-34.0 [facility] Comment on above: Performed By: #### P T #### [facility] [address] [place] [address] Dr. Tg Fierro MCHC (RBC) [Mass/Vol] 33.1 g/dL Normal 29.9-35.2 [facility] Comment on above: Performed By: #### P T #### [facility] [address] [place] [address] Dr. Tg Feirro MCV (RBC) [Entitic vol] 94.3 fL Normal 81.0-99.0 [facility] Comment on above: Performed By: #### P T #### [facility] [address] [place] [address] Dr. gT Fierro MONO # 0.6 103/ul Normal 0.3-0.8 [facility] Comment on above: Performed By: #### P T #### [facility] [address] [place] [address] Dr. Tg Fierro Monocytes/100 WBC (Bld) 8.1 % Normal 1.7-12.0 [facility] Comment on above: Performed By: #### P T #### [facility] [address] [place] [address] Dr. Tg Fierro NEUT # 4.1 103/ul Normal 1.4-6.5 [facility] Comment on above: Performed By: #### P T #### [facility] [address] [place] [address] Dr. Tg Fierro Neutrophils/100 WBC (Bld) 52.7 % Normal 43.0-75.0 [facility] Comment on above: Performed By: #### P T #### [facility] [address] [place] [address] Dr. Tg Fierro Platelet mean volume (Bld) [Entitic vol] 8.7 fL Critically low 9.5-13.5 [facility] Comment on above: Performed By: #### P T #### [facility] [address] [place] [address] Dr. Tg Fierro PLT 278 103/ul Normal 150-450 [facility] Comment on above: Performed By: #### P T #### [facility] [address] [place] [address] Dr. Tg Fierro RBC 4.07 106/ul Critically low 4.20-5.40 [facility] Comment on above: Performed By: #### P T #### [facility] [address] [place] [address] Dr. Tg Fierro WBC 7.7 103/ul Normal 4.0-11.0 [facility] Comment on above: Performed By: #### P T #### [facility] [address] [place] [address] Dr. Tg Fierro PROF 14(COMP METB)on 023 Albumin [Mass/Vol] 3.9 g/dL Normal 3.4-5.0 [facility] Comment on above: Performed By: #### C MP #### [facility] [address] [place] [address] Dr. Tg Fierro Albumin/Globulin [Mass ratio] 1.4 {ratio} Normal [facility] Comment on above: Performed By: #### C MP #### [facility] [address] [place] [address] Dr. Tg Fierro ALP [Catalytic activity/Vol] 59 U/L Normal 46-116 [facility] Comment on above: Performed By: #### C MP #### [facility] [address] [address] [address] Tg Fierro ALT [Catalytic activity/Vol] 21 U/L Normal 14-59 [facility] [facility] Comment on above: Performed By: #### C MP #### [facility] [address] [address] [address] Tg Fierro Anion gap [Moles/Vol] 10.8 mmol/L Normal [facility] Comment on above: Performed By: #### C MP #### [facility] [address] [address] [address] gT Fierro AST [Catalytic activity/Vol] 9 U/L Critically low 15-37 [facility] Comment on above: Performed By: #### C MP #### [facility] [address] [address] [address] Tg Firero Bilirubin [Mass/Vol] 0.3 mg/dL Normal 0.2-1.0 [facility] Comment on above: Performed By: #### C MP #### [facility] [address] [address] [address] Tg Fierro Calcium [Mass/Vol] 9.1 mg/dL Normal 8.5-10.1 [facility] Comment on above: Performed By: #### C MP #### [facility] [address] [address] [address] Tg Fierro Chloride [Moles/Vol] 104 mmol/L Normal 98-107 [facility] Comment on above: Performed By: #### C MP #### [facility] [address] [address] [address] Tg Fierro CO2 [Moles/Vol] 28.3 mmol/L Normal 21.0-32.0 [facility] Comment on above: Performed By: #### C MP #### [facility] [address] [address] [address] Tg Fierro Creatinine [Mass/Vol] 0.86 mg/dL Normal 0.55-1.02 [facility] Comment on above: Performed By: #### C MP #### [facility] [address] [address] [address] Tg Fierro EGFR-AF CYMRAES >60 Normal >=60 [facility] Comment on above: Performed By: #### C MP #### [facility] [address] [address] [address] Tg Fierro EGFR-NON AF CYMRAES >60 Normal >=60 [facility] Comment on above: Performed By: #### C MP #### [facility] [address] [address] [address] Tg Fierro Globulin (S) [Mass/Vol] 2.7 g/dL Normal [facility] Comment on above: Performed By: #### C MP #### [facility] [address] [address] [address] Tg Fierro Glucose [Mass/Vol] 120 mg/dL Critically high 74-106 [facility] Comment on above: Performed By: #### C MP #### [facility] [address] [address] [address] Tg Fierro Potassium [Moles/Vol] 4.1 mmol/L Normal 3.5-5.1 [facility] Comment on above: Performed By: #### C MP #### [facility] [address] [address] [address] Tg Fierro Protein [Mass/Vol] 6.6 g/dL Normal 6.4-8.2 [facility] Comment on above: Performed By: #### C MP #### [facility] [address] [address] [address] Tg Fierro Sodium [Moles/Vol] 139 mmol/L Normal 136-145 [facility] Comment on above: Performed By: #### C MP #### [facility] [address] [address] [address] Tg Fierro Urea nitrogen [Mass/Vol] 13.0 mg/dL Normal 7.0-18.0 [facility] Comment on above: Performed By: #### C MP #### [facility] [address] [place] [address] Dr. Tg Fierro Urea nitrogen/Creatinine [Mass ratio] 15.1 mg/mg Normal [facility] Comment on above: Performed By: #### C MP #### [facility] [address] [place] [address] Dr. Tg Fierro PROTIMEon 09-24-2022 INR Coag (PPP) [Relative time] 1.35 {INR} Normal [facility] Comment on above: Performed By: #### P T #### [facility] [address] [place] [address] Dr. Tg Fierro INR GUIDELINES SEE BELOW Normal [facility] Comment on above: Result Comment: LAURENCE RED INR: 2.0 - 3.0 CONDITIONS NOT LISTED BELOW 2.5 - 3.5 FOR PROSTHETIC HEART VALVE REPLACEMENT 2.5 - 3.5 RECURRENT THROMBOSIS Performed By: #### P T #### [facility] [address] [place] [address] Dr. Tg Fierro PT Coag (PPP) [Time] 14.1 s Critically high 9.0-11.6 [facility] Comment on above: Performed By: #### P T #### [facility] [address] [place] [address] Dr. Tg Fierro SED RATE [facility] 2022 SED RATE 8 mm/hr Normal <=30 [facility] Comment on above: Performed By: #### C MP #### [facility] [address] [place] [address] Dr. Tg Fierro PROTIMEon 09-09-2022 INR Coag (PPP) [Relative time] 1.23 {INR} Normal [facility] Comment on above: Performed By: #### P T #### [facility] [address] [place] [address] Dr. Tg Fierro INR GUIDELINES SEE BELOW Normal [facility] Comment on above: Result Comment: LAURENCE RED INR: 2.0 - 3.0 CONDITIONS NOT LISTED BELOW 2.5 - 3.5 FOR PROSTHETIC HEART VALVE REPLACEMENT 2.5 - 3.5 RECURRENT THROMBOSIS Performed By: #### P T #### [facility] [address] [place], [place] [address] Dr[address] Tg Fierro PT Coag (PPP) [Time] 12.9 s Critically high 9.0-11.6 [facility] Comment on above: Performed By: #### P T #### [facility] [address] [place], [place] [address] Dr. Tg Fierro ECHOCARDIO M/2D COMPLETEon 0 09-02-2022 ECHOCARDIO M/2D COMPLETE Patient: WILDA SEN Exam Date: 09/02/2022 : 1945 Gender:F Ordering : DR JAYME PEREZ . Admission #: [id number] Family : Order #: [id number] CLICK HERE TO VIEW EXAM ECHOCARDIOGRAM REPORT [...] on 09/03/2022 at 17:25 Normal [facility] GLYCOHEMOGLOBIN A1Con 2022 ADA RECOMMENDATION SEE BELOW Normal [facility] Comment on above: Result Comment: ADA RECOMMENDED LIMIT 4.0 - 6.0 ADA THERAPEUTIC TARGET < 7.0 ACTION SUGGESTED > 7.0 Performed By: #### A 1C #### [facility] [address] [place] [address] Dr. Tg Fierro Glucose [Mass/Vol] 148 mg/dL Normal [facility] Comment on above: Performed By: #### A 1C #### [facility] [address] [place] [address] Dr. Tg Fierro HbA1c (Bld) [Mass fraction] 6.8 % Critically high 4.5-6.2 [facility] Comment on above: Performed By: #### A 1C #### [facility] [address] [place] [address] Dr. Tg Fierro CBC AUTO DIFFon 08-05-2022 BASO # 0.1 103/ul Normal 0.0-0.1 [facility] Comment on above: Performed By: #### C BC #### [facility] [address] [place] [address] Dr. Tg Fierro Basophils/100 WBC (Bld) 0.8 % Normal 0.2-2.0 [facility] Comment on above: Performed By: #### C BC #### [facility] [address] [place] [address] Dr. Tg Fierro EO # 0.5 103/ul Normal 0.0-0.7 [facility] Comment on above: Performed By: #### C BC #### [facility] [address] [place] [address] Dr. Tg Fierro Eosinophils/100 WBC (Bld) 7.3 % Critically high 0.9-7.0 [facility] Comment on above: Performed By: #### C BC #### [facility] [address] [place] [address] Dr. Tg Fierro Erythrocyte distribution width (RBC) [Ratio] 13.4 % Normal 11.0-15.0 [facility] Comment on above: Performed By: #### C BC #### [facility] [address] [place] [address] Dr. Tg Fierro Hematocrit (Bld) [Volume fraction] 37.1 % Normal 36.0-48.0 [facility] Comment on above: Performed By: #### C BC #### [facility] [address] [place] [address] Dr. Tg Fierro Hemoglobin (Bld) [Mass/Vol] 12.9 g/dL Normal 12.0-16.0 [facility] Comment on above: Performed By: #### C BC #### [facility] [address] [place] [address] Dr. Tg Fierro IG # 0.03 10e3/ul Normal 0.00-0.03 [facility] Comment on above: Performed By: #### C BC #### [facility] [address] [place] [address] Dr. Tg Fierro IG % 0.5 % Normal 0.0-0.5 [facility] Comment on above: Performed By: #### C BC #### [facility] [address] [place] [address] Dr. Tg Fierro LYMPH # 2.3 103/ul Normal 1.2-3.8 [facility] Comment on above: Performed By: #### C BC #### [facility] [address] [place] [address] Dr. Tg Fierro Lymphocytes/100 WBC (Bld) 34.9 % Normal 20.5-60.0 [facility] Comment on above: Performed By: #### C BC #### [facility] [address] [place] [address] Dr. Tg Fierro MANUAL DIFF REQ NO Normal [facility] Comment on above: Performed By: #### C BC #### [facility] [address] [address] [address] Tg Fierro MCH (RBC) [Entitic mass] 31.0 pg Normal 26.7-34.0 [facility] Comment on above: Performed By: #### C BC #### [facility] [address] [address] [address] Tg Fierro MCHC (RBC) [Mass/Vol] 34.8 g/dL Normal 29.9-35.2 [facility] Comment on above: Performed By: #### C BC #### [facility] [address] [address] [address] Tg Fierro MCV (RBC) [Entitic vol] 89.2 fL Normal 81.0-99.0 [facility] Comment on above: Performed By: #### C BC #### [facility] [address] [place] [address] Dr. Tg Fierro MONO # 0.4 103/ul Normal 0.3-0.8 [facility] Comment on above: Performed By: #### C BC #### [facility] [address] [place] [address] Dr. Tg Fierro Monocytes/100 WBC (Bld) 6.1 % Normal 1.7-12.0 [facility] Comment on above: Performed By: #### C BC #### [facility] [address] [address] [address] Tg Fierro NEUT # 3.3 103/ul Normal 1.4-6.5 [facility] Comment on above: Performed By: #### C BC #### [facility] [address] [place] [address] Dr. Tg Fierro Neutrophils/100 WBC (Bld) 50.4 % Normal 43.0-75.0 [facility] [place] [facility] Comment on above: Performed By: #### C BC #### [facility] [address] [place] [address] Dr. Tg Fierro Platelet mean volume (Bld) [Entitic vol] 8.6 fL Critically low 9.5-13.5 [facility] Comment on above: Performed By: #### C BC #### [facility] [address] [address] [address] Tg Fierro PLT 336 103/ul Normal 150-450 [facility] Comment on above: Performed By: #### C BC #### [facility] [address] [address] [address] Tg Fierro RBC 4.16 106/ul Critically low 4.20-5.40 [facility] Comment on above: Performed By: #### C BC #### [facility] [address] [address] [address] Tg Fierro WBC 6.4 103/ul Normal 4.0-11.0 [facility] Comment on above: Performed By: #### C BC #### [facility] [address] [place] [address] Dr. Tg Fierro PROF 14(COMP METB)on 023 Albumin [Mass/Vol] 3.9 g/dL Normal 3.4-5.0 [facility] Comment on above: Performed By: #### P T #### [facility] [address] [place] [address] Dr. Tg Fierro Albumin/Globulin [Mass ratio] 1.3 {ratio} Normal [facility] Comment on above: Performed By: #### P T #### [facility] [address] [place] [address] Dr. Tg Fierro ALP [Catalytic activity/Vol] 60 U/L Normal 46-116 [facility] [place] [facility] Comment on above: Performed By: #### P T #### [facility] [address] [place] [address] Dr. Tg Fierro ALT [Catalytic activity/Vol] 21 U/L Normal 14-59 [facility] Comment on above: Performed By: #### P T #### [facility] [address] [place] [address] Dr. Tg Fierro Anion gap [Moles/Vol] 15.2 mmol/L Normal [facility] Comment on above: Performed By: #### P T #### [facility] [address] [address] [address] Tg Fierro AST [Catalytic activity/Vol] 14 U/L Critically low 15-37 [facility] Comment on above: Performed By: #### P T #### [facility] [address] [address] [address] Tg Fierro Bilirubin [Mass/Vol] 0.4 mg/dL Normal 0.2-1.0 [facility] Comment on above: Performed By: #### P T #### [facility] [address] [address] [address] Tg Fierro Calcium [Mass/Vol] 9.3 mg/dL Normal 8.5-10.1 [facility] Comment on above: Performed By: #### P T #### [facility] [address] [place] [address] Dr. Tg Fierro Chloride [Moles/Vol] 102 mmol/L Normal 98-107 [facility] Comment on above: Performed By: #### P T #### [facility] [address] [place] [address] Dr. Tg Fierro CO2 [Moles/Vol] 26.8 mmol/L Normal 21.0-32.0 [facility] Comment on above: Performed By: #### P T #### [facility] [address] [place] [address] Dr. Tg Fierro Creatinine [Mass/Vol] 0.74 mg/dL Normal 0.55-1.02 [facility] Comment on above: Performed By: #### P T #### [facility] [address] [place] [address] Dr. Tg Fierro EGFR-AF CYMRAES >60 Normal >=60 [facility] Comment on above: Performed By: #### P T #### [facility] [address] [place] [address] Dr. Tg Fierro EGFR-NON AF CYMRAES >60 Normal >=60 [facility] Comment on above: Performed By: #### P T #### [facility] [address] [place] [address] Dr. Tg Fierro Globulin (S) [Mass/Vol] 3.1 g/dL Normal [facility] Comment on above: Performed By: #### P T #### [facility] [address] [address] [address] Tg Fierro Glucose [Mass/Vol] 148 mg/dL Critically high 74-106 [facility] Comment on above: Performed By: #### P T #### [facility] [address] [address] [address] Tg Fierro Potassium [Moles/Vol] 4.0 mmol/L Normal 3.5-5.1 [facility] Comment on above: Performed By: #### P T #### [facility] [address] [place] [address] Dr. Tg Fierro Protein [Mass/Vol] 7.0 g/dL Normal 6.4-8.2 [facility] Comment on above: Performed By: #### P T #### [facility] [address] [place] [address] Dr. Tg Fierro Sodium [Moles/Vol] 140 mmol/L Normal 136-145 [facility] Comment on above: Performed By: #### P T #### [facility] [address] [place] [address] Dr. Tg Fierro Urea nitrogen [Mass/Vol] 12.0 mg/dL Normal 7.0-18.0 [facility] Comment on above: Performed By: #### P T #### [facility] [address] [place] [address] Dr. Tg Fierro Urea nitrogen/Creatinine [Mass ratio] 16.2 mg/mg Normal [facility] Comment on above: Performed By: #### P T #### [facility] [address] [address] [address] Tg Fierro SED RATE WESTERGRENon 2022 SED RATE 30 mm/hr Normal <=30 [facility] Comment on above: Performed By: #### S EDR #### [facility] [address] [address] [address] Tg Fierro CBC AUTO DIFFon 04-15-2022 BASO # 0.1 103/ul Normal 0.0-0.1 [facility] Comment on above: Performed By: #### C BC #### [facility] [address] [place] [address] Dr. Tg Fierro Basophils/100 WBC (Bld) 0.6 % Normal 0.2-2.0 [facility] Comment on above: Performed By: #### C BC #### [facility] [address] [place] [address] Dr. Tg Fierro EO # 0.2 103/ul Normal 0.0-0.7 [facility] Comment on above: Performed By: #### C BC #### [facility] [address] [place] [address] Dr. Tg Fierro Eosinophils/100 WBC (Bld) 3.1 % Normal 0.9-7.0 [facility] Comment on above: Performed By: #### C BC #### [facility] [address] [place] [address] Dr. Tg Fierro Erythrocyte distribution width (RBC) [Ratio] 13.6 % Normal 11.0-15.0 [facility] Comment on above: Performed By: #### C BC #### [facility] [address] [place] [address] Dr. Tg Fierro Hematocrit (Bld) [Volume fraction] 42.3 % Normal 36.0-48.0 [facility] Comment on above: Performed By: #### C BC #### [facility] [address] [place] [address] Dr. Tg Fierro Hemoglobin (Bld) [Mass/Vol] 13.2 g/dL Normal 12.0-16.0 [facility] Comment on above: Performed By: #### C BC #### [facility] [address] [place] [address] Dr. Tg Fierro IG # 0.04 10e3/ul Critically high 0.00-0.03 [facility] Comment on above: Performed By: #### C BC #### [facility] [address] [place] [address] Dr. Tg Fierro IG % 0.5 % Normal 0.0-0.5 [facility] Comment on above: Performed By: #### C BC #### [facility] [address] [place] [address] Dr. Tg Fierro LYMPH # 2.5 103/ul Normal 1.2-3.8 [facility] Comment on above: Performed By: #### C BC #### [facility] [address] [place] [address] Dr. Tg Fierro Lymphocytes/100 WBC (Bld) 31.6 % Normal 20.5-60.0 [facility] Comment on above: Performed By: #### C BC #### [facility] [address] [place] [address] Dr. Tg Fierro MANUAL DIFF REQ NO Normal [facility] Comment on above: Performed By: #### C BC #### [facility] [address] [place] [address] Dr. Tg Fierro MCH (RBC) [Entitic mass] 30.3 pg Normal 26.7-34.0 [facility] Comment on above: Performed By: #### C BC #### [facility] [address] [place] [address] Dr. Tg Fierro MCHC (RBC) [Mass/Vol] 31.2 g/dL Normal 29.9-35.2 [facility] Comment on above: Performed By: #### C BC #### [facility] [address] [place] [address] Dr. Tg Fierro MCV (RBC) [Entitic vol] 97.0 fL Normal 81.0-99.0 [facility] Comment on above: Performed By: #### C BC #### [facility] [address] [place] [address] Dr. Tg Fierro MONO # 0.5 103/ul Normal 0.3-0.8 [facility] Comment on above: Performed By: #### C BC #### [facility] [address] [place] [address] Dr. Tg Fierro Monocytes/100 WBC (Bld) 6.3 % Normal 1.7-12.0 [facility] Comment on above: Performed By: #### C BC #### [facility] [address] [place] [address] Dr. Tg Fierro NEUT # 4.5 103/ul Normal 1.4-6.5 [facility] Comment on above: Performed By: #### C BC #### [facility] [address] [place] [address] Dr. Tg Fierro Neutrophils/100 WBC (Bld) 57.9 % Normal 43.0-75.0 [facility] Comment on above: Performed By: #### C BC #### [facility] [address] [place] [address] Dr. Tg Fierro Platelet mean volume (Bld) [Entitic vol] 8.6 fL Critically low 9.5-13.5 [facility] Comment on above: Performed By: #### C BC #### [facility] [address] [place] [address] Dr. Tg Fierro PLT 295 103/ul Normal 150-450 [facility] Comment on above: Performed By: #### C BC #### [facility] [address] [place] [address] Dr. Tg Fierro RBC 4.36 106/ul Normal 4.20-5.40 [facility] Comment on above: Performed By: #### C BC #### [facility] [address] [place] [address] Dr. Tg Fierro WBC 7.8 103/ul Normal 4.0-11.0 [facility] Comment on above: Performed By: #### C BC #### [facility] [address] [place] [address] Dr. Tg Fierro PROF 14(COMP METB)on 022 Albumin [Mass/Vol] 4.5 g/dL Normal 3.4-5.0 [facility] Comment on above: Performed By: #### C MP #### [facility] [address] [place] [address] Dr. Tg Fierro Albumin/Globulin [Mass ratio] 1.5 {ratio} Normal [facility] Comment on above: Performed By: #### C MP #### [facility] [address] [address] [address] Tg Fierro ALP [Catalytic activity/Vol] 62 U/L Normal 46-116 [facility] Comment on above: Performed By: #### C MP #### [facility] [address] [address] [address] Tg Fierro ALT [Catalytic activity/Vol] 25 U/L Normal 14-59 [facility] Comment on above: Performed By: #### C MP #### [facility] [address] [address] [address] Tg Fierro Anion gap [Moles/Vol] 10.6 mmol/L Normal [facility] Comment on above: Performed By: #### C MP #### [facility] [address] [place] [address] Dr. Tg Fierro AST [Catalytic activity/Vol] 12 U/L Critically low 15-37 [facility] Comment on above: Performed By: #### C MP #### [facility] [address] [place] [address] Dr. Tg Fierro Bilirubin [Mass/Vol] 0.5 mg/dL Normal 0.2-1.0 [facility] Comment on above: Performed By: #### C MP #### [facility] [address] [place] [address] Dr. Tg Fierro Calcium [Mass/Vol] 9.8 mg/dL Normal 8.5-10.1 [facility] Comment on above: Performed By: #### C MP #### [facility] [address] [address] [address] Tg Fierro Chloride [Moles/Vol] 102 mmol/L Normal 98-107 [facility] Comment on above: Performed By: #### C MP #### [facility] [address] [address] [address] Tg Fierro CO2 [Moles/Vol] 31.8 mmol/L Normal 21.0-32.0 [facility] Comment on above: Performed By: #### C MP #### [facility] [address] [address] [address] Tg Fierro Creatinine [Mass/Vol] 0.88 mg/dL Normal 0.55-1.02 [facility] Comment on above: Performed By: #### C MP #### [facility] [address] [address] [address] Tg Fierro EGFR-AF CYMRAES >60 Normal >=60 [facility] Comment on above: Performed By: #### C MP #### [facility] [address] [address] [address] Tg Fierro EGFR-NON AF CYMRAES >60 Normal >=60 [facility] Comment on above: Performed By: #### C MP #### [facility] [address] [place] [address] Dr. Tg Fierro Globulin (S) [Mass/Vol] 3.1 g/dL Normal [facility] Comment on above: Performed By: #### C MP #### [facility] [address] [place] [address] Dr. Tg Fierro Glucose [Mass/Vol] 187 mg/dL Critically high 74-106 [facility] Comment on above: Performed By: #### C MP #### [facility] [address] [place] [address] Dr. Tg Fierro Potassium [Moles/Vol] 4.4 mmol/L Normal 3.5-5.1 [facility] Comment on above: Performed By: #### C MP #### [facility] [address] [place] [address] Dr. Tg Fierro Protein [Mass/Vol] 7.6 g/dL Normal 6.4-8.2 [facility] Comment on above: Performed By: #### C MP #### [facility] [address] [place] [address] Dr. Tg Fierro Sodium [Moles/Vol] 140 mmol/L Normal 136-145 [facility] Comment on above: Performed By: #### C MP #### [facility] [address] [place] [address] Dr. Tg Fierro Urea nitrogen [Mass/Vol] 14.0 mg/dL Normal 7.0-18.0 [facility] Comment on above: Performed By: #### C MP #### [facility] [address] [place] [address] Dr. Tg Fierro Urea nitrogen/Creatinine [Mass ratio] 15.9 mg/mg Normal [facility] Comment on above: Performed By: #### C MP #### [facility] [address] [place] [address] Dr. Tg Fierro SED RATE WESTERGRENon 2021 SED RATE 5 mm/hr Normal <=30 [facility] Comment on above: Performed By: #### S EDR #### [facility] [address] [place] [address] Dr. Tg Fierro CBC AUTO DIFFon 02-07-2022 BASO # 0.0 103/ul Normal 0.0-0.1 [facility] Comment on above: Performed By: #### P T #### [facility] [address] [place] [address] Dr. Tg Fierro Basophils/100 WBC (Bld) 0.6 % Normal 0.2-2.0 [facility] Comment on above: Performed By: #### P T #### [facility] [address] [place] [address] Dr. Tg Fierro EO # 0.4 103/ul Normal 0.0-0.7 [facility] Comment on above: Performed By: #### P T #### [facility] [address] [place] [address] Dr. Tg Fierro Eosinophils/100 WBC (Bld) 5.4 % Normal 0.9-7.0 [facility] Comment on above: Performed By: #### P T #### [facility] [address] [place] [address] Dr. Tg Fierro Erythrocyte distribution width (RBC) [Ratio] 13.5 % Normal 11.0-15.0 [facility] Comment on above: Performed By: #### P T #### [facility] [address] [place] [address] Dr. Tg Fierro Hematocrit (Bld) [Volume fraction] 39.4 % Normal 36.0-48.0 [facility] Comment on above: Performed By: #### P T #### [facility] [address] [place] [address] Dr. Tg Fierro Hemoglobin (Bld) [Mass/Vol] 12.8 g/dL Normal 12.0-16.0 [facility] Comment on above: Performed By: #### P T #### [facility] [address] [place] [address] Dr. Tg Fierro IG # 0.02 10e3/ul Normal 0.00-0.03 [facility] Comment on above: Performed By: #### P T #### [facility] [address] [place] [address] Dr. Tg Fierro IG % 0.3 % Normal 0.0-0.5 [facility] Comment on above: Performed By: #### P T #### [facility] [address] [place] [address] Dr. gT Fierro LYMPH # 2.4 103/ul Normal 1.2-3.8 [facility] Comment on above: Performed By: #### P T #### [facility] [address] [place] [address] Dr. Tg Fierro Lymphocytes/100 WBC (Bld) 36.2 % Normal 20.5-60.0 [facility] Comment on above: Performed By: #### P T #### [facility] [address] [place] [address] Dr. Tg Fierro MANUAL DIFF REQ NO Normal [facility] Comment on above: Performed By: #### P T #### [facility] [address] [place] [address] Dr. Tg Fierro MCH (RBC) [Entitic mass] 31.0 pg Normal 26.7-34.0 [facility] Comment on above: Performed By: #### P T #### [facility] [address] [place] [address] Dr. Tg Fierro MCHC (RBC) [Mass/Vol] 32.5 g/dL Normal 29.9-35.2 [facility] Comment on above: Performed By: #### P T #### [facility] [address] [place] [address] Dr. Tg Fierro MCV (RBC) [Entitic vol] 95.4 fL Normal 81.0-99.0 [facility] Comment on above: Performed By: #### P T #### [facility] [address] [place] [address] Dr. Tg Fierro MONO # 0.5 103/ul Normal 0.3-0.8 [facility] Comment on above: Performed By: #### P T #### [facility] [address] [place] [address] Dr. Tg Fierro Monocytes/100 WBC (Bld) 8.0 % Normal 1.7-12.0 [facility] Comment on above: Performed By: #### P T #### [facility] [address] [place] [address] Dr. Tg Fierro NEUT # 3.3 103/ul Normal 1.4-6.5 [facility] Comment on above: Performed By: #### P T #### [facility] [address] [place] [address] Dr. Tg Fierro Neutrophils/100 WBC (Bld) 49.5 % Normal 43.0-75.0 [facility] Comment on above: Performed By: #### P T #### [facility] [address] [place] [address] Dr. Tg Fierro Platelet mean volume (Bld) [Entitic vol] 8.7 fL Critically low 9.5-13.5 [facility] Comment on above: Performed By: #### P T #### [facility] [address] [place] [address] Dr. Tg Fierro PLT 276 103/ul Normal 150-450 [facility] Comment on above: Performed By: #### P T #### [facility] [address] [place] [address] Dr. Tg Fierro RBC 4.13 106/ul Critically low 4.20-5.40 [facility] Comment on above: Performed By: #### P T #### [facility] [address] [address] [address] Tg Fierro WBC 6.7 103/ul Normal 4.0-11.0 [facility] Comment on above: Performed By: #### P T #### [facility] [address] [address] [address] Tg Fierro GLYCOHEMOGLOBIN A1Con 2021 ADA RECOMMENDATION SEE BELOW Normal [facility] Comment on above: Result Comment: ADA RECOMMENDED LIMIT 4.0 - 6.0 ADA THERAPEUTIC TARGET < 7.0 ACTION SUGGESTED > 7.0 Performed By: #### A 1C #### [facility] [address] [place] [address] Dr. Tg Fierro Glucose [Mass/Vol] 151 mg/dL Normal [facility] Comment on above: Performed By: #### A 1C #### [facility] [address] [place] [address] Dr. Tg Fierro HbA1c (Bld) [Mass fraction] 6.9 % Critically high 4.5-6.2 [facility] Comment on above: Performed By: #### A 1C #### [facility] [address] [place] [address] Dr. Tg Fierro PROF 14(COMP METB)on 022 Albumin [Mass/Vol] 3.8 g/dL Normal 3.4-5.0 [facility] Comment on above: Performed By: #### P T #### [facility] [address] [place] [address] Dr. Tg Fierro Albumin/Globulin [Mass ratio] 1.3 {ratio} Normal [facility] Comment on above: Performed By: #### P T #### [facility] [address] [place] [address] Dr. Tg Fierro ALP [Catalytic activity/Vol] 43 U/L Critically low 46-116 [facility] Comment on above: Performed By: #### P T #### [facility] [address] [place] [address] Dr. Tg Fierro ALT [Catalytic activity/Vol] 19 U/L Normal 14-59 [facility] Comment on above: Performed By: #### P T #### [facility] [address] [place] [address] Dr. Tg Fierro Anion gap [Moles/Vol] 13.7 mmol/L Normal [facility] Comment on above: Performed By: #### P T #### [facility] [address] [address] [address] Tg Fierro AST [Catalytic activity/Vol] 11 U/L Critically low 15-37 [facility] Comment on above: Performed By: #### P T #### [facility] [address] [place] [address] Dr. Tg Fierro Bilirubin [Mass/Vol] 0.4 mg/dL Normal 0.2-1.0 [facility] Comment on above: Performed By: #### P T #### [facility] [address] [place] [address] Dr. Tg Fierro Calcium [Mass/Vol] 9.1 mg/dL Normal 8.5-10.1 [facility] Comment on above: Performed By: #### P T #### [facility] [address] [place] [address] Dr. Tg Fierro Chloride [Moles/Vol] 104 mmol/L Normal 98-107 [facility] Comment on above: Performed By: #### P T #### [facility] [address] [place] [address] Dr. Tg Fierro CO2 [Moles/Vol] 28.5 mmol/L Normal 21.0-32.0 [facility] Comment on above: Performed By: #### P T #### [facility] [address] [place] [address] Dr. Tg Fierro Creatinine [Mass/Vol] 0.77 mg/dL Normal 0.55-1.02 [facility] Comment on above: Performed By: #### P T #### [facility] [address] [place] [address] Dr. Tg Fierro EGFR-AF CYMRAES >60 Normal >=60 [facility] Comment on above: Performed By: #### P T #### [facility] [address] [address] [address] Tg Fierro EGFR-NON AF CYMRAES >60 Normal >=60 [facility] Comment on above: Performed By: #### P T #### [facility] [address] [address] [address] Tg Fierro Globulin (S) [Mass/Vol] 3.0 g/dL Normal [facility] Comment on above: Performed By: #### P T #### [facility] [address] [address] [address] Tg Fierro Glucose [Mass/Vol] 124 mg/dL Critically high 74-106 [facility] Comment on above: Performed By: #### P T #### [facility] [address] [place] [address] Dr. Tg Fierro Potassium [Moles/Vol] 4.2 mmol/L Normal 3.5-5.1 [facility] Comment on above: Performed By: #### P T #### [facility] [address] [place] [address] Dr. Tg Fierro Protein [Mass/Vol] 6.8 g/dL Normal 6.4-8.2 [facility] Comment on above: Performed By: #### P T #### [facility] [address] [place] [address] Dr. Tg Fierro Sodium [Moles/Vol] 142 mmol/L Normal 136-145 [facility] Comment on above: Performed By: #### P T #### [facility] [address] [address] [address] Tg Fierro Urea nitrogen [Mass/Vol] 12.0 mg/dL Normal 7.0-18.0 [facility] Comment on above: Performed By: #### P T #### [facility] [address] [address] [address] Tg Fierro Urea nitrogen/Creatinine [Mass ratio] 15.6 mg/mg Normal [facility] Comment on above: Performed By: #### P T #### [facility] [address] [address] [address] Tg Fierro SED RATE [facility] 2021 SED RATE 8 mm/hr Normal <=30 [facility] Comment on above: Performed By: #### C MP #### [facility] [address] [address] [address] Tg Fierro COVID Quick Testingon 2020 Result Positive [facility] Other Vital Signs Date Time Vital Sign Value Performing Clinician Facility 08-13-2023 10:47-0500 Blood Pressure Location Renato SANTACRUZ [facility] 08-13-2023 10:47-0500 Diastolic blood pressure 62 mm[Hg] Renato SANTACRUZ [facility] 08-13-2023 10:47-0500 Heart rate 82 /min Renato SANTACRUZ [facility] 08-13-2023 10:47-0500 Respiratory rate 16 /min Renato SANTACRUZ [facility] 08-13-2023 10:47-0500 Systolic blood pressure 105 mm[Hg] Renato SANTACRUZ [facility] 08-07-2023 09:48-0500 Body height 160 cm Jayme Perez MD Work Phone: [facility] 08-07-2023 09:48-0500 Body mass index (BMI) [Ratio] 24.45 kg/m2 Jayme Perez MD Work Phone: [facility] 08-07-2023 09:48-0500 Body weight 62.6 kg Jayme Perez MD Work Phone: [facility] 08-07-2023 09:48-0500 Heart rate 57 /min Jayme Perez MD Work Phone: [facility] 08-07-2023 09:48-0500 SaO2% (BldA) [Mass fraction] 98 % Jayme Perez MD Work Phone: [facility] 07-25-2023 09:20-0500 Body height 160.02 cm Lou Glover Other [facility] Other 07-25-2023 09:20-0500 Body mass index (BMI) [Ratio] 23.91 kg/m2 Lou Glover Other [facility] Other 07-25-2023 09:20-0500 Body temperature 97.7 [degF] Lou Glover Other [facility] Other 07-25-2023 09:20-0500 Body weight 61.24 kg Lou Glover Other [facility] Other 07-25-2023 09:20-0500 Diastolic blood pressure 74 mm[Hg] Lou Glover Other [facility] Other 07-25-2023 09:20-0500 Respiratory rate 18 /min Lou Glover Other [facility] Other 07-25-2023 09:20-0500 SaO2% (BldA) [Mass fraction] 96 % Lou Glover Other [facility] Other 07-25-2023 09:20-0500 Systolic blood pressure 120 mm[Hg] Lou Glover Other [facility] Other 03-26-2023 13:15-0400 Body height 160.02 cm MD Jayme Perez Work Phone: [facility] 03-26-2023 13:15-0400 Body temperature 98.2 [degF] MD Jayme Perez Work Phone: [facility] 03-26-2023 13:15-0400 Body weight 66 kg MD Jayme Perez Work Phone: [facility] 03-26-2023 13:15-0400 Diastolic blood pressure 71 mm[Hg] MD Jayme Perez Work Phone: [facility] 03-26-2023 13:15-0400 Heart rate 87 /min MD Jayme Perez Work Phone: [facility] 03-26-2023 13:15-0400 Respiratory rate 16 /min MD Jayme Perez Work Phone: [facility] 03-26-2023 13:15-0400 SaO2% (BldA) [Mass fraction] 97 % MD Jayme Perez Work Phone: [facility] 03-26-2023 13:15-0400 Systolic blood pressure 117 mm[Hg] MD Jayme Perez Work Phone: [facility] 05-21-2021 13:15-0500 Body height 160.02 cm Astrid Baker Other [facility] Other 05-21-2021 13:15-0500 Body mass index (BMI) [Ratio] 23.91 kg/m2 Astrid Baker Other [facility] Other 05-21-2021 13:15-0500 Body temperature 97.3 [degF] Astrid Baker Other [facility] Other 05-21-2021 13:15-0500 Body weight 61.24 kg Astrid Baker Other [facility] Other 05-21-2021 13:15-0500 SaO2% (BldA) [Mass fraction] 94 % Astrid Ryanault Other [facility] Other Encounters Encounter Date Encounter Type Care Provider Facility Start: 09-01-2023 End: 09-01-2023 ambulatory FELICIA Magalie FARMER Not Available Start: 08-20-2023 Clinisync Result Encounter Generic External Data Provider [facility] External Department Unsolicited Start: 08-20-2023 Clinisync Result Encounter Generic External Data Provider [facility] External Department Unsolicited Start: 08-14-2023 End: 08-15-2023 ambulatory Renato SANTACRUZ Facility:[id number] Start: 08-13-2023 End: 08-14-2023 ambulatory Renato SANTACRUZ Facility:[facility] Start: 08-13-2023 End: 08-13-2023 Patient encounter procedure Renato SANTACRUZ [facility] Start: 08-07-2023 End: 08-07-2023 ambulatory JAYME PEREZ Not Available Start: 08-07-2023 End: 08-07-2023 Office outpatient visit 25 minutes Jayme Perez MD Work Phone: [facility] Comment on above: Chronic diastolic he art failure (CMS/HCC) (Primary Dx); 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 (CMS/HCC); Type 2 diabetes mellitus with stage 3a chronic kidney disease, without long-term current use of insulin (HCC) (CMS/HCC); Stage 3a chronic kidney disease (HCC) (CMS/HCC); Microalbuminuria; Former smoker; 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, adult; long-term current use of anticoagulant; Psoriatic arthropathy (CMS/HCC); Gastroesophageal reflux disease without esophagitis Start: 07-30-2023 End: 07-30-2023 ambulatory JAYME PEREZ Not Available Start: 07-25-2023 End: 07-25-2023 ambulatory Lou Glover Other [facility] Other Start: 07-25-2023 Office outpatient vi sit 25 minutes Lou Glover [facility] Start: 07-10-2023 End: 07-10-2023 ambulatory FELICIA HITCHCOCKJARRET Not Available Start: 07-02-2023 End: 07-02-2023 ambulatory FELICIA HITCHCOCKNICOLEER Not Available Start: 06-25-2023 End: 06-25-2023 ambulatory FELICIA HITCHCOCKNICOLEER Not Available Start: 06-18-2023 End: 06-18-2023 ambulatory FELICIA D HILLARY Not Available Start: 04-07-2023 End: 04-07-2023 ambulatory Williams Shepherd Facility:[facility] Start: 04-07-2023 End: 04-07-2023 Departed Referred MD Jayme Perez Work Phone: [facility] Start: 04-07-2023 End: 04-08-2023 ambulatory MD Jayme Perez Work Phone: [facility] Work Phone: Start: 03-26-2023 End: 03-26-2023 ambulatory Williams Shepherd Facility:[facility] Start: 03-26-2023 End: 03-26-2023 Patient encounter procedure MD Jayme Perez Work Phone: [facility] Work Phone: Start: 03-20-2023 End: 03-21-2023 ambulatory Williams SHEPHERD [facility] Start: 03-20-2023 End: 03-20-2023 Lab Drop off Williams SHEPHERD [facility] Start: 03-20-2023 End: 03-20-2023 Patient encounter procedure Williams SHEPHERD [facility] Start: 02-03-2023 End: 02-04-2023 ambulatory Williams SHEPHERD [...] 05-21-2021 End: 05-21-2021 ambulatory Astrid Baker Other [facility] Other Start: 05-21-2021 Office outpatient vi sit 15 minutes Astrid Baker [facility] Procedures Date Procedure Procedure [...] SHEPHERD Abdominal hysterectomy Bhavesh SANTACRUZ Appendectomy Renato [email or web address] Extraction of cataract Radhajarad resendiz [email or web address] Partial lobectomy of lung Pa gamal SANTACRUZ Tonsillectomy Renato [email or web address] Plan of Treatment Date Care Activity Detail Author Start: 05-19-2025 Glaucoma screening Diabetes: Retinopathy Screening [facility] Start: 07-12-2024 ambulatory Ambulatory Facility:[facility] Start: 05-22-2024 Medicare Annual Wellness (AWV) Medicare Annual Wellness (AWV) [facility] Start: 10-14-2023 ambulatory Ambulatory Facility:[facility] Start: 09-01-2023 End: 09-01-2023 Patient encounter procedure 09/01/2023 10:30 AM EST Office Visit [facility] [address] [place] [address] Felicia Farmer DO [address] [place] [address] [facility] Start: 05-06-2023 Hemoglobin A1c measurement Diabetes: Hemoglobin A1C [facility] Start: 04-07-2023 Abdomen endoscopy OR Cysto/Retro/Stent/Stone/ Holmium Laser (Right) [facility] Start: 03-14-2023 Influenza vaccination Influenza Vaccine (#1) [facility] Start: 1951 Pneumococcal Vaccine: 65+ Years (1 - PCV) Pneumococcal Vaccine: 65+ Years (1 - PCV) [facility] Immunizations Immunization Date Immunization Notes Care Provider Yaya oswald NEGATED: Highlighted row has not occurred!08-13-2023 influenza virus vaccine, unspecified formulation Renato SANTACRUZ [facility] NEGATED: Highlighted row has not occurred!08-13-2023 SARS-CoV-2 mRNA (tozinameran 5y-11y) vaccine Renato SANTACRUZ [facility] NEGATED: Highlighted row has not occurred!09-21-2019 influenza virus vaccine, live, attenuated, for intranasal use [employer] [facility] NEGATED: Highlighted row has not occurred!08-20-2019 influenza virus vaccine, live, attenuated, for intranasal use [employer] [facility] Payers Date Payer Category Payer Self-pay [id number] 2022 Unknown [employer] [id number] 2022-Present [address] [address] [place] [address] [id number] 2022 Medicare [id number] 2002 Medicare MEDICARE MEDICAR E PART B [id number] 2002-Present [address] [address] [place] [address] Medicare [id number] 1959 Medicare [id number] 2.16.840.1.203737.19 1959 Unknown [id number] 1946 Unknown [id number] 2.16.840.1.280160.3.579.2.59 3 1946 Unknown [id number] 2.16.840.1.757405.3.579.2.59 3 1946 Unknown [id number] 2.16.840.1.814501.3.579.2.59 3 1946 Unknown [id number] 2.16.840.1.855555.3.579.2.59 3 1946 Unknown [id number] 2.16.840.1.227392.3.579.2.59 3 1946 Unknown [id number] 2.16.840.1.254082.3.579.2.59 3 1946 Unknown [id number] 2.16.840.1.120684.3.579.2.59 3 1946 Unknown [id number] 2.16.840.1.285492.3.579.2.59 3 1946 Unknown [id number] 2.16.840.1.473655.3.579.2.59 3 1946 Unknown [id number] 2.16.840.1.235679.3.579.2.59 3 1946 Unknown [id number] 2.16.840.1.979249.3.579.2.59 3 1946 Unknown [id number] 2.16.840.1.532204.3.579.2.59 3 1946 Unknown [id number] 2.16.840.1.408372.3.579.2.59 3 1946 Unknown [id number] 2.16.840.1.010472.3.579.2.72 7 1946 Unknown [id number] 2.16.840.1.186195.3.579.2.72 7 1946 Unknown [id number] 2.16.840.1.372408.3.579.2.72 7 1946 Unknown [id number] 2.16.840.1.005045.3.579.2.72 7 1946 Unknown [id number] 2.16.840.1.419399.3.579.2.72 7 1946 Unknown [id number] 2.16.840.1.411977.3.579.2.72 7 1946 Unknown [id number] 2.16.840.1.609917.3.579.2.72 7 1946 Unknown [id number] 2.16.840.1.065635.3.579.2.12 59 1946 Unknown [id number] 2.16.840.1.245539.3.579.2.12 59 1946 Unknown [id number] 2.16.840.1.984932.3.579.2.12 59 1946 Unknown [id number] 2.16.840.1.566360.3.579.2.12 59 1946 Unknown [id number] 2.16.840.1.012417.3.579.2.12 59 1946 Unknown [id number] 2.16.840.1.457135.3.579.2.12 59 1946 Unknown [id number] 2.16.840.1.021345.3.579.2.12 59 Unknown [id number] 2.16.840.1.873166.3.579.2.53 1 Unknown [id number] 2.16.840.1.654230.3.579.2.53 1 Social History Date Type Detail Facility Sex Assigned At [facility] [employer] Other Start: 02-03-2023 End: 08-07-2023 Tobacco smoking status Ex-smoker (finding) [facility] Tobacco smoking status Never [facility] Start: 12-11-2022 End: 05-22-2023 Sex Assigned [address] Female [facility] Start: 1945 Sex Assigned At Female [facility] End: 07-14-1986 History of tobacco use Current [...] 08-13-2023 Functional Status N/A [facility] Clinical Notes 02-21-2022 to 08-13-2023 Jayme [...] including vitamins, herbs, eye drops, creams, and lvhg-vgs-zdzkxkb medicines. Any problems you or family members [...] provider tells you to take them. ?Taking ktyk-uut-giisdbs medicines, vitamins, herbs, and supplements. Eating and [...] provider. Document Revised: 11/06/2022 Document Reviewed: 03/04/2022 [facility] Patient Education 2022 [employer]. Follow Up Care 08/12/2023 14:37:00 With:ANGELITO AGUIAR, Renato Arzola, URL Address: [facility] [address] , [facility] [address]- [phone] When: Unknown Comments:sched ureteroscopyf/u w/ GPC scheduled 10/14/23 [facility] 08-07-2023 History of Present illness Narrative Patient [...] 0.55 - 1.02 mg/dL Final [facility] EGFR-AF CYMRAES 07/22/2023 >60 >=60 Final [facility] EGFR-NON AF CYMRAES 07/22/2023 55 (L) >=60 Final BUN CREATININE [...] without long-term current use of insulin (HCC) ([facility]) - metFORMIN (Glucophage) 1000 MG tablet; Take [...] treats. Stage 3a chronic kidney disease (HCC) ([facility]) New, Chronic problem, unstable, progressing, defining the [...] cardiovascular disease. Former smoker 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, adult long-term current use of anticoagulant Chronic problem, that is monitored monthly, and be seen in the monthly INR results. documented in this encounter [facility] 07-25-2023 Evaluation note Encounter Date Diagnosis [...] care as directed rx of steroid and [place], cool mist humidification. May use Tylenol as directed. Immediate eval for signs of respiratory distress, difficulty breathing poor PO intake, signs of dehydration, fever, or other concerning symptoms. Otherwise, follow up with PCP in 2-3 days. Patient verbalizes understanding and is agreeable to treatment plan. Patient sent home in stable condition. [facility] Other 08-11-2022 NotePROCEDURE: XR FOOT LT MIN 3 VIEWS COMPARISON: None. HISTORY: Pain in left foot FINDINGS: BONES:No acute fracture or dislocation. Mild enthesopathic spurring of the calcaneus. SOFT TISSUES:Negative. No visible soft tissue swelling. EFFUSION:None visible. OTHER: Negative. IMPRESSION: Mild enthesopathic spurring of the calcaneus Electronically authenticated by: BLANCA ZAVALA Date: 2022-02-21 [facility] Future App[facility]ments Appointment Date:07/12/2024 10:45:00 AM Scheduled Provider:Williams SHEPHERD MD Location:[facility] Appointment Type:URO Office Visit [facility] Evaluation + Plan note Future Appointments Appointment Date:07/12/2024 10:45:00 AM Scheduled Provider:Williams [facility]PHERD MD [facility] App[facility] Type:URO Office Visit Diagnostic Tests Pending * Calculi Analysis [facility] Future App[facility]ments Appointment Date:10/14/2023 09:15:00 AM Scheduled Provider:Williams [facility]PHERD MD [facility] Appointment Type:URO Office Visit Appointment Date:07/12/2024 10:45:00 AM Scheduled Provider:Williams SHEPHERD MD [facility] Type:URO Office Visit [facility] evaluation noteNort [facility] Other Evaluation noteNo assessment information available [facility] Work Phone: Evaluation note* Diagnosis Chronic diastolic heart failure ([facility]/HCC)- Primary Chronic diastolic heart failure 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 ([facility]/HCC) Atrial fibrillation Type 2 diabetes mellitus with stage 3a chronic kidney disease, without long-term current use of insulin (HCC) ([facility]/HCC) Stage 3a chronic kidney disease (HCC) ([facility]) Microalbuminuria Proteinuria Former smoker Personal history of tobacco use, presenting hazards to health 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, 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 Psoriatic arthropathy ([facility]) Psoriatic arthropathy Gastroesophageal reflux disease without esophagitis Esophageal reflux documented in this encounter [facility] Other History general Narrative - Reported* Type Description Date Medical History Arthritis Medical History diabetes mallitus Surgical History cataract surgery [facility] [employer] Other Hospital course Narrative No data available for this section [facility] Hospital Discharge instructions No data available for this section [facility] Progress note No data available for this section [facility] Summary Purpose Family History No Family History [...] content) DATE CREATED AUTHOR 12/20/2022 [facility] DATE CREATED AUTHOR AUTHOR'S ORGANIZ ATION 06/09/2023 [facility] DATE CREATED AUTHOR AUTHOR'S ORGANIZ ATION 08/29/2023 [facility] DATE CREATED AUTHOR AUTHOR'S ORGANIZ ATION 09/01/2023 [facility] Specialists EPIC Patient Care team informatio n (unrecognized section and content) Team Status: Active Member Role Status Dates Jayme Perez MD Primary Care Provider Active Team Status: Inactive Member Role Status Dates Jayme Perez MD Primary Care Provider Active Williams Shepherd MD Attending Provider Active 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 [employer] [facility] provides no warranty or guarantee of the accuracy or completeness of information in this document.
[2023-09-16 11:13] LABS: INR 1.46; Prothrombin Time 15.1 sec (9.0-11.6)
== END 2023-09-16 10:26 | disposition home or self-care (01) ==
LOC: LAB 10:27
PROVIDERS: PCP Family Medicine; Visit Provider Family Medicine
DX: I48.0 Paroxysmal atrial fibrillation (principal); Z79.01 Long term (current) use of anticoagulants; Z51.81 Encounter for therapeutic drug level monitoring
CPT/HCPCS: 36415; 85610

== ENCOUNTER 2023-10-03 09:39 | Outpatient (OUT) | payer MEDICARE, SELFPAY ==
--- OUTSIDE RECORDS SUMMARY | 2023-10-03 09:48 | XMS_ITS | CCD ---
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 Name Role Phone Astrid Baker Unavailable CAYETANO, [...] MCKINNEY Attending Unavailable HEMEYER ., DR MCKINNEY Admdiallo Unavailable CAYETANO, DR CRUM Attending Unavailable CAYETANO, DR CRUM Admdiallo Unavailable PATOKA, DR BLANCA Haskins Consulting Unavailable HEMEYER ., DR MCKINNEY Primary Care Unavailable MONTEIRO, DR CRUM Consulting Unavailable CAYETANO, DR CRUM Consulting Unavailable CAYETANO, DR CRUM Attending Unavailable MONTEIRO, DR CRUM Admdiallo Unavailable HEMEYER ., DR MCKINNEY Primary Care Unavailable CAYETANO, DR CRUM Consulting Unavailable CAYETANO, DR CRUM Attending Unavailable MONTEIRO, DR CRUM Admitting Unavailable HEMEYER ., DR MCKINNEY Primary Care Unavailable HEMEYER ., DR MCKINNEY Consulting Unavailable HEMEYER ., DR MCKINNEY Attending Unavailable HEMEYER ., DR MCKINNEY Admdiallo Unavailable HEMEYER ., DR MCKINNEY Primary Care [...] Unavailable Jayme Perez MD Primary Care Provider Jayme Perez MD Unavailable Williams SHEPHERD Attending Unavailable Williams SHEPHERD Attending Unavailable Renato SANTACRUZ Attending Unavailable Williams SHEPHERD P Attending Unavailable Williams SHEPHERD P Admitting Unavailable Williams SHEPHERD P Attending Unavailable Renato SANTACRUZ R Attending Unavailable Williams SHEPHERD P Attending Unavailable Williams SHEPHERD P Attending Unavailable FELICIA FARMER Attending Unavailable JAYME PEREZ Attending Unavailable HEMEJAYME TAMAYO Attending Unavailable FELICIA FARMER Attending Unavailable FELICIA FARMER Attending Unavailable FELICIA FARMER Attending Unavailable FELICIA FARMER Attending Unavailable Allergies Allergy Classification Reported Allergen(s) Allergy Type Date of Onset Reaction(s) Facility (10 sources) Ciprofloxacin; Translations: [ciprofloxacin] Drug Allergy 02-19-20 anaphylaxis, Unknown (qualifier value) [facility] (1 source) sulfaSALAzine Drug Allergy rash [employer] Other (1 source) Ciprofloxacin Drug Allergy 03-30-20 13 [facility] (2 sources) Ketorolac; Translations: [Toradol] Drug Allergy 03-30-20 13 [facility] (2 sources) metroNIDAZOLE; Translations: [MetroGel] Drug Allergy 03-30-20 13 [facility] (1 source) NSAIDs Drug allergy (disorder) 03-30-20 13 [facility] (2 sources) pioglitazone; Translations: [Actos] Drug Allergy 03-30-20 13 [facility] (1 source) Sulfonamides (Antibiotic) Drug allergy (disorder) 03-30-20 13 [facility] (8 sources) Ketorolac; Translations: [ketorolac] Drug Allergy 03-26-20 Unknown (qualifier value), Nausea (finding) [facility] Comment on above: Severe (9 sources) Latex; Translations: [latex] Drug allergy 01-07-20 Blister of skin AND/OR mucosa (finding) [facility] (7 sources) Non-steroidal anti-inflammatory agent; Translations: [NSAIDs] Drug allergy 02-19-20 22 Unknown (qualifier value) [facility] (9 sources) pioglitazone; Translations: [pioglitazone] Drug Allergy 01-07-20 23 Unknown (qualifier value) [facility] (4 sources) Sulfonamides (Antibiotic); Translations: [sulfa drugs] Drug allergy Unknown (qualifier value) [facility] (6 sources) metroNIDAZOLE; Translations: [metronidazole] Drug Allergy 02-19-20 22 Redness of Skin [facility] (2 sources) Sulfonamides (Antibiotic); Translations: [Sulfa (Sulfonamide Antibiotics)] Allergy to substance 03-26-20 Rash [facility] (2 sources) NSAIDS (Non-Steroidal Anti-Inflamma; Translations: [NSAIDS (Non-Steroidal Anti-Inflamma] Allergy to substance 03-26-20 Anaphylaxis [facility] (1 source) Ciprofloxacin Drug Allergy 03-26-20 23 [facility] Repository (1 source) Ketorolac Drug Allergy 03-26-20 [facility] Repository (1 source) pioglitazone Drug Allergy 03-26-20 [facility] Repository (1 source) Non-steroidal anti-inflammatory agent Drug allergy rash [employer] Other (4 sources) Substance with sulfonamide structure and antibacterial mechanism of action (substance) Drug allergy 02-19-20 rash [employer] [facility] [employer] Other (3 sources) Ketorolac Allergy to substance 01-07-20 Nausea Only [facility] (3 sources) Hydrocodone Bit-Homatrop Mbr Propensity to adverse reactions 08-07-19 Dizziness [facility] (3 sources) Medical Adhesive Remover Drug Allergy 02-19-20 [facility] Medications Current Medications Medication Drug Class(es) Dates Sig (Normalized) Sig (Original) acarbose 100 mg oral tablet (11 sources) alpha-Glucosidase Inhibitor Start: 08-17-2019 End: 02-03-2024 acarbose (Precose) 100 MG tablet Indications: Type 2 diabetes mellitus with stage 3a chronic kidney disease, without long-term current use of insulin (HCC) ([facility]/HCC) Take 1 tablet (100 mg) by mouth [...] Refill(s) 0 Start Date: 08/13/23 Status: Ordered [id number] 200 actuat albuterol 0.09 mg/actuat metered dose [...] Date: 09/19/20 Status: Ordered Cyanocobalamin-Liver Extract (Vitamin R65-Vnzlx) Tablet (1 source) Start: 03-26-2023 take 1 tablet by mouth once daily Cyanocobalamin-Liver Extract (Vitamin N57-Hhoyv) Tablet Active 1 TAB PO every day at noon March 25, 2023 11:00pm dextromethorphan hydrobromide 1.5 mg/ml / pyrilamine maleate 1.5 mg/ml oral solution (1 source) Uncompetitive L-xxyezl-D-aspar muñoz Receptor Antagonist, Sigma-1 Agonist Start: 07-25-2023 take 10 mL by mouth every eight hours Carlton DM 7.5-7.5 MG/5ML 10 mL Orally every [...] 08/17/19 Status: Ordered take 1 capsule by [facility] once daily esomeprazole (NexIUM) [address] [...] without long-term current use of insulin (HCC) ([facility]/HCC) Take 1 tablet (1,000 mg) by mouth [...] Active Misc Medication (3 sources) Start: 09-19-2020 [facility] [place] See Instructions, Oral Start Date: 09/19/20 Status: Ordered Start: 09-19-2020 [facility] ironchlate Start Date: 09/19/20 Status: [...] Ordered Start: 08-12-2023 take 1 capsule by [facility] every twenty-four hours in the morning tamsulosin [...] Translations: [Stage 3a chronic kidney disease (HCC) (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.] 12-12-2022 12-12-2022 Episodic Other aftercare (1 source) terminal manager (current) use of oral hypoglycemic drugs; Translations: [NURSE LIAISON USE ORAL HYPOGLYCEMIC DX] Onset: 08-12-2022 Episodic Other aftercare (1 source) retirement (current) use of insulin; Translations: [NURSE LIAISON CURRENT USE OF INSULIN] Onset: 02-13-2022 Episodic [...] Facil ity [facility] Report[facility] 08-27-2023 Lab Reports [id number] .00TIFF [facility] Lab Reportson 08-25-2023 Lab Reports [id number] .00TIFF [facility] Lab Reports [id number] .00TIFF [facility] Reportson 08-22-2023 Lab Reports [id number] .00TIFF [facility] Report[facility] 08-21-2023 Lab Reports [id number] .00TIFF [facility] Lab Reports [id number] .00TIFF [facility] ALL BUNon 08-20-2023 Urea nitrogen [Mass/Vol] 12.0 mg/dL 7.0 - 18.0 mg/dL [facility] ALL CARBON DIOXIDEon 024 CO2 [Moles/Vol] 30.1 mmol/L 21.0 - 32.0 mmol/L [facility] ALL CHLORIDEon 08-20-2023 Chloride [Moles/Vol] 104 mmol/L 98 - 107 mmol/L [facility] ALL PHOSPHOROUSon 08-20-2023 Phosphate [Mass/Vol] 4.1 mg/dL 2.6 - 4.7 mg/dL [facility] ALL SODIUMon 08-20-2023 Sodium [Moles/Vol] 141 mmol/L 136 - 145 mmol/L [facility] ALL URIC ACIDon 08-20-2023 Urate [Mass/Vol] 4.4 mg/dL 2.6 - 6.0 mg/dL [facility] CALCIUMon 08-20-2023 Calcium [Mass/Vol] 9.1 mg/dL 8.5 - 10.1 mg/dL [facility] No Panel Informationon 08-20 [facility] CREATININEon 08-20-2023 Creatinine [Mass/Vol] 0.86 mg/dL 0.55 - 1.02 mg/dL [facility] GFR/1.73 sq M.predicted CKD-EPI (S/P/Bld) [Vol rate/Area] >60 60 - PINF [facility] EGFR-NON AF POLISH >60 60 - PINF [facility] Consent for Procedure/Surger yon 08-15-2023 Consent for Procedure/Surgery [id number] .00TIFF Normal [facility] ED Note-Physicianon 08-15-19 ED Note-Physician [id number]#1. 00TIFF Normal [facility] Lab Reportson 08-15-2023 Lab Reports [id number]#1. 00TIFF Normal [facility] Lab Reports [id number] .00TIFF Normal [facility] Lab Reports [id number]#1 .00TIFF Normal [facility] Operative Reporton Operative Report [id number]#1 .00TIFF Normal [facility] RAD - CT Reporton 08-15-2023 RAD - CT Report [id number]#1. 00TIFF Normal [facility] Ambulatory Visit Summaryon 0 08-13-2023 Ambulatory [...] AGUIAR, Williams Venegas Where: [facility] Normal [address] [address]- \.br\ You Need to Schedule the Following Appointments\.br \ Follow Up with ANGELITO AGUIAR, Renato Arzola, URL When: \.br\ Comments:\.br\ sched ureteroscopy\.br \ f/u w/ [facility] scheduled 10/14/23\.br\ Where:\.br\ [facility] [address]br\ [place] [address]-\.br\ [phone]\.br\ Medications\.br\ What How Much When Instructions\.br \ [...] murmur\.br\ History of uterine cancer\.br\ Hx of retirement use of blood thinners\.br\ Kidney stones\.br\ Nocturia\.br\ [...] including vitamins, herbs, eye drops, creams, and hccr-eau-dlzfoto medicines.\.br\ ? \.br\ Any problems you or [...] you to take them.\.br\ ? \.br\ Taking bicw-iiu-ryzjsjw medicines, vitamins, herbs, and supplements.\.br \ Eating [...] [facility] Patient Educationon 08-13-19 24 Patient Education Nephrology Laser Therapy for Kidney [...] including vitamins, herbs, eye drops, creams, and ehze-giv-ytioapr medicines. ? Any problems you or family [...] tells you to take them. ? Taking uxvi-jdn-bknnjxz medicines, vitamins, herbs, and supplements. Eating and [...] Patient is here for follow up to [facility] ER HPI Staff Patient is here for f/u to [facility] ER on 08/12/23 due to distal [...] Hydronephrosis with renal and ureteral calculous obstruction) [facility] ER visit 08/12/23 due to R [...] abdominal pain) See #1 4. Anticoagulated (Z79.01: retirement (current) use of anticoagulants) On warfarin 3mg for a-fib. States she did not take this last night. Advised pt not to take her dose today either. Follow-up With When Contact Information Renato SANTACRUZ MD, [facility] [address] [place] [address] [phone] Additional Instructions: sched ureteroscopy f/u w/ [facility] scheduled 10/14/23 Patient Education Laser Therapy for Kidney Stones I, Amy Gallagher, personally scribed for Dr. Santacruz on 08/13/2023 11:35:03. . Documentation recorded by the scribeAmy, accurately reflects the services(s) I performed and [...] (COVID-19) RNA TREASURE+probe Ql (Unsp spec) Negative [facility] Other COVID/FLU/RSV RT-PCR Negative [facility] Other COVID/FLU/RSV RT-PCR Positive [facility] Other Calculus Analysison 03-27-20 23 Calcium oxalate dihydrate Infrared spectroscopy (Stone) [Mass fraction] 100 % Invalid Interpretation Code [facility] Comment on above: Performed By: #### 1 [id number] ####[facility] [address] [place] [address] Color (Stone) Roper Invalid Interpretation Code [facility] Comment on above: Performed By: #### 1 [id number] ####[facility] [address] [place] [address] Composition Comment Invalid Interpretation Code [facility] Comment on above: Result Comment: Perc entage (Represents the % composition) Performed By: #### 1 [id number] ####[address] [place] [address] Disclaimer: Comment Invalid Interpretation Code [facility] Comment on above: Result Comment: This test was developed and its performance characteristics determined by [facility]. It has not been cleared or approved by the Food and Drug Administration. Performed at: [facility] [address] [id number] PhD Silvestre Esquivel Performed By: #### 1 [id number] ####[address] [address] Laboratory comment Noam (Report) Comment Invalid Interpretation Code [facility] Comment on above: Result Comment: Coco goode questions regarding Calculi Analysis contact [employer] at: [phone]. Performed By: #### 1 [id number] ####[address] [address] Please Note: Comment Invalid Interpretation Code [facility] Comment on above: Result Comment: Calc javier report will follow via computer, mail or technical buyer delivery. Performed By: #### 1 [id number] ####[address] [place] [address] Size (Stone) [Entitic vol] 6x4 Invalid Interpretation Code [facility] Comment on above: Result Comment: Sing le piece received. Performed By: #### 1 [id number] ####[address] [place] [address] Specimen source subject Nom Comment Invalid Interpretation Code [facility] Comment on above: Result Comment: Not provided Performed By: #### 1 [id number] ####[address] [place] [address] Stone Photo Comment Invalid Interpretation Code [facility] Comment on above: Result Comment: Phot ograph will follow under a separate cover Performed By: #### 1 [id number] ####[facility] [address] [place] [address] Weight (Stone) 49 mg Invalid Interpretation Code [facility] Comment on above: Performed By: #### 1 [id number] ####[facility] [address] [place] [address] Lab Reportson 03-27-2023 Lab Reports [id number]. 00CD:127 Normal [facility] Activated partial thrombopla stin time (aPTT) in platelet poor plasma by coagulation aOrdered By: Williams Shepherd on 03-26-2023 aPTT Coag (PPP) [Time] 35.9 s 25.1-36.5 [facility] Comment on above: A hematocrit value g reater than 55% may lead to inaccurate results in coagulation testing. Patients having hematocrit values >55% require a special collection tube for coagulation studies. Please contact the laboratory at [phone] for redraw instructions. Basic Metabolic Panelon 03-14 Anion gap [Moles/Vol] 13.0 mmol/L Normal 6.0-15.0 [facility] Comment on above: Performed By: #### P T, BMP, CBC, PTT #### [facility] [address] [place] [address] [place] Calcium [Mass/Vol] 10.0 mg/dL Normal 8.6-10.3 [facility] Comment on above: Result Comment: PERF ORMED BY: [facility] [address] [place] [address] PATHOLOGIST RECTIFYING OPERATOR BERNIE GRAYSON M.D. Performed By: #### P T, BMP, CBC, PTT #### [facility] [address] Chloride [Moles/Vol] 104 mmol/L Normal 98-107 [facility] Comment on above: Performed By: #### P T, BMP, CBC, PTT #### [facility] [address] [place] [address] [place] CO2 [Moles/Vol] 30.0 mmol/L Normal 21.0-31.0 [facility] Comment on above: Performed By: #### P T, BMP, CBC, PTT #### [facility] [address] [place] [address] [place] Creatinine [Mass/Vol] 0.85 mg/dL Normal 0.60-1.20 [facility] Comment on above: Performed By: #### P T, BMP, CBC, PTT #### [place] [address] [place] GFR/1.73 sq M.predicted MDRD (S/P/Bld) [Vol rate/Area] mL/min/{1.73_m2} Normal [facility] Comment on above: Performed By: #### P T, BMP, CBC, PTT #### [place] [address] [place] Glucose [Mass/Vol] 111 mg/dL High 70-100 [facility] Comment on above: Result Comment: [facility] Glucose Reference Range is dependent on time and content of last meal. Glucose of more than 200 mg/dL in a nonstressed, ambulatory subject supports the diagnosis of Diabetes Mellitus. ADA recommended reference range Performed By: #### P T, BMP, CBC, PTT #### [place] [address] [place] Potassium [Moles/Vol] 5.0 mmol/L Normal 3.5-5.1 [facility] Comment on above: Performed By: #### P T, BMP, CBC, PTT #### [place] [address] [place] Sodium [Moles/Vol] 142 mmol/L Normal 136-145 [facility] Comment on above: Performed By: #### P T, BMP, CBC, PTT #### [facility] [address] [place] [address] [place] Urea nitrogen [Mass/Vol] 12 mg/dL Normal 7-25 [facility] Comment on above: Performed By: #### P T, BMP, CBC, PTT #### [facility] [address] [place] [address] [place] Basophils Auto (Bld) [#/Vol] Ordered By: Williams Shepherd on 03-26-2023 Basophils (Bld) [#/Vol] 0.0 10*3/uL 0.0-0.2 [facility] Basophils/100 WBC Auto (Bld) Ordered By: Williams Shepherd on 03-26-2023 Basophils/100 WBC (Bld) 0.8 % . [facility] Calcium [Mass/volume] in Ser um or PlasmaOrdered By: Williams Shepherd on 03-26-2023 Calcium [Mass/Vol] 10.0 mg/dL 8.6-10.3 [facility] Carbon dioxide, total [Moles /volume] in Serum or PlasmaOrdered By: Williams Shepherd on 03-26-2023 CO2 [Moles/Vol] 30.0 mmol/L 21.0-31.0 [facility] Chloride [Moles/volume] in S fartun or PlasmaOrdered By: Williams Shepherd on 03-26-2023 Chloride [Moles/Vol] 104 mmol/L 98-107 [facility] Complete Blood Count Auto Di ffon 03-26-2023 Basophils (Bld) [#/Vol] 0.0 10*3/uL Normal 0.0-0.2 [facility] Comment on above: Result Comment: PERF ORMED BY: [place] [address] PATHOLOGIST RECTIFYING OPERATOR BERNIE GRAYSON M.D. Performed By: #### P T, BMP, CBC, PTT #### [facility] [address] [place] [address] [place] Basophils/100 WBC (Bld) 0.8 % Normal . [facility] Comment on above: Performed By: #### P T, BMP, CBC, PTT #### [facility] [address] [place] [address] [place] Eosinophils (Bld) [#/Vol] 0.3 10*3/uL Normal 0.0-0.45 [facility] Comment on above: Performed By: #### P T, BMP, CBC, PTT #### [facility] [address] [place] [address] [place] Eosinophils/100 WBC (Bld) 4.3 % Normal . [facility] Comment on above: Performed By: #### P T, BMP, CBC, PTT #### [facility] [address] Erythrocyte distribution width (RBC) [Ratio] 14.8 % Normal 11.9-15.3 [facility] Comment on above: Performed By: #### P T, BMP, CBC, PTT #### [address] Hematocrit (Bld) [Volume fraction] 40.3 % Normal 34.0-46.4 [facility] Comment on above: Performed By: #### P T, BMP, CBC, PTT #### [address] Hemoglobin (Bld) [Mass/Vol] 13.3 g/dL Normal 11.8-15.4 [facility] Comment on above: Performed By: #### P T, BMP, CBC, PTT #### [place] [address] [place] Lymphocytes (Bld) [#/Vol] 2.2 10*3/uL Normal 1.00-4.8 [facility] Comment on above: Performed By: #### P T, BMP, CBC, PTT #### [place] [address] [place] Lymphocytes/100 WBC (Bld) 36.9 % Normal . [facility] Comment on above: Performed By: #### P T, BMP, CBC, PTT #### [facility] [address] [place] [address] [place] MCH (RBC) [Entitic mass] 31.1 pg Normal 24.7-34.3 [facility] Comment on above: Performed By: #### P T, BMP, CBC, PTT #### [address] MCV (RBC) [Entitic vol] 94.4 fL Normal 80-100 [facility] Comment on above: Performed By: #### P T, BMP, CBC, PTT #### [address] Mean Corpuscular HGB Conc 32.9 g/dL Normal 32.0-35.0 [facility] Comment on above: Performed By: #### P T, BMP, CBC, PTT #### [address] Monocytes (Bld) [#/Vol] 0.5 10*3/uL Normal 0.0-0.8 [facility] Comment on above: Performed By: #### P T, BMP, CBC, PTT #### [address] Monocytes/100 WBC (Bld) 7.8 % Normal . [facility] Comment on above: Performed By: #### P T, BMP, CBC, PTT #### [address] Neutrophils (Bld) [#/Vol] 3.0 10*3/uL Normal 1.8-7.7 [facility] Comment on above: Performed By: #### P T, BMP, CBC, PTT #### [address] Neutrophils/100 WBC (Bld) 50.2 % Normal . [facility] Comment on above: Performed By: #### P T, BMP, CBC, PTT #### [address] NRBC% 0.3 /100{WBC} Normal 0-0.5 [facility] Comment on above: Performed By: #### P T, BMP, CBC, PTT #### [address] Platelet mean volume (Bld) [Entitic vol] 7.1 fL Normal 6.3-10.7 [facility] Comment on above: Performed By: #### P T, BMP, CBC, PTT #### [address] Platelets (Bld) [#/Vol] 363 10*3/uL Normal 150-450 [facility] Comment on above: Performed By: #### P T, BMP, CBC, PTT #### [facility] [address] RBC (Bld) [#/Vol] 4.27 10*6/uL Normal 3.60-5.00 [facility] Comment on above: Performed By: #### P T, BMP, CBC, PTT #### [facility] [address] WBC (Bld) [#/Vol] 5.9 10*3/uL Normal 3.8-11.6 [facility] Comment on above: Performed By: #### P T, BMP, CBC, PTT #### [address] Creatinine [Mass/volume] in Serum or PlasmaOrdered By: Williams Shepherd on 03-26-2023 Creatinine [Mass/Vol] 0.85 mg/dL 0.60-1.20 [facility] ECG 12 lead ECGon 03-26-2023 ECG 12 lead ECG [facility] Main [place] [address] [place] [address] Electrocardiograph Report Signed Patient: Wilda Sen MR#: [id number] 8 : 1945 Acct:[id number] Age/Sex: 77 / F ADM Date: 03/26/23 Loc: Room: Type: [facility] Attending Dr: Williams Shepherd MD Ordering [...] By Maru Whitehead DO 03/26 1908 Normal [facility] Eosinophils Auto (Bld) [#/Vo l]Ordered By: Williams Shepherd on 03-26-2023 Eosinophils (Bld) [#/Vol] 0.3 10*3/uL 0.0-0.45 [facility] Eosinophils/100 WBC Auto (Bl d)Ordered By: Williams Shepherd on 03-26-2023 Eosinophils/100 WBC (Bld) 4.3 % . [facility] Erythrocyte distribution wid th Auto (RBC) [Ratio]Ordered By: Williams Shepherd on 03-26-2023 Erythrocyte distribution width (RBC) [Ratio] 14.8 % 11.9-15.3 [facility] Glucose [Mass/volume] in Ser um or PlasmaOrdered By: Williams Shepherd on 03-26-2023 Glucose [Mass/Vol] 111 mg/dL 70-100 [facility] Comment on above: ADA recommended refe rence rangeRandom Glucose Reference Range is dependent on time and content of last meal. Glucose of more than 200 mg/dL in a nonstressed, ambulatory subject supports the diagnosis of Diabetes Mellitus. Hematocrit Auto (Bld) [Volum e fraction]Ordered By: Williams Shepherd on 03-26-2023 Hematocrit (Bld) [Volume fraction] 40.3 % 34.0-46.4 [facility] Hemoglobin [Mass/volume] in BloodOrdered By: Williams Shepherd on 03-26-2023 Hemoglobin (Bld) [Mass/Vol] 13.3 g/dL 11.8-15.4 [facility] INR in Platelet poor plasma by Coagulation assayOrdered By: Williams Shepherd on 03-26-2023 INR Coag (PPP) [Relative time] 2.3 {INR} [facility] Comment on above: INR Therapeutic Rang [...] RBC Auto (Bld) [#/Vol] 5.9 10*3/uL 3.8-11.6 [facility] Lymphocytes Auto (Bld) [#/Vo l]Ordered By: Williams Shepherd on 03-26-2023 Lymphocytes (Bld) [#/Vol] 2.2 10*3/uL 1.00-4.8 [facility] Lymphocytes/100 WBC Auto (Bl d)Ordered By: Williams Shepherd on 03-26-2023 Lymphocytes/100 WBC (Bld) 36.9 % . [facility] MCH Auto (RBC) [Entitic mass ]Ordered By: Williams Shepherd on 03-26-2023 MCH (RBC) [Entitic mass] 31.1 pg 24.7-34.3 [facility] MCHC Auto (RBC) [Mass/Vol]Or dered By: Williams Shepherd on 03-26-2023 MCHC (RBC) [Mass/Vol] 32.9 g/dL 32.0-35.0 [facility] MCV Auto (RBC) [Entitic vol] Ordered By: Williams Shepherd on 03-26-2023 MCV (RBC) [Entitic vol] 94.4 fL 80-100 [facility] Monocytes Auto (Bld) [#/Vol] Ordered By: Williams Shepherd on 03-26-2023 Monocytes (Bld) [#/Vol] 0.5 10*3/uL 0.0-0.8 [facility] Monocytes/100 WBC Auto (Bld) Ordered By: Williams Shepherd on 03-26-2023 Monocytes/100 WBC (Bld) 7.8 % . [facility] Neutrophils Auto (Bld) [#/Vo l]Ordered By: Williams Shepherd on 03-26-2023 Neutrophils (Bld) [#/Vol] 3.0 10*3/uL 1.8-7.7 [facility] Neutrophils/100 WBC Auto (Bl d)Ordered By: Williams Shepherd on 03-26-2023 Neutrophils/100 WBC (Bld) 50.2 % . [facility] No Panel InformationOrdered By: Williams Shepherd on 03-26-2023 Estimated GFR (CKD-EPI) > 60.0 mL/Min [facility] Creatinine Clearance (Chem N/A [facility] Nucleated erythrocytes [Pres ence] in Blood by Automated countOrdered By: Williams Shepherd on 03-26-2023 Nucleated RBC Auto Ql (Bld) 0.3 /100{WBC} 0-0.5 [facility] Partial Thromboplastin Timeo n 03-26-2023 aPTT Coag (Bld) [Time] 35.9 s Normal 25.1-36.5 [facility] Comment on above: Result Comment: A he matocrit value greater than 55% may lead to inaccurate results in coagulation testing. Patients having hematocrit values >55% require a special collection tube for coagulation studies. Please contact the laboratory at [phone] for redraw instructions. PERFORMED BY: [place] [address] PATHOLOGIST RECTIFYING OPERATOR BERNIE GRAYSON M.D. Performed By: #### P T, BMP, CBC, PTT #### [address] Platelet mean volume Auto (B ld) [Entitic vol]Ordered By: Williams Shepherd on 03-26-2023 Platelet mean volume (Bld) [Entitic vol] 7.1 fL 6.3-10.7 [facility] Platelets Auto (Bld) [#/Vol] Ordered By: Williams Shepherd on 03-26-2023 Platelets (Bld) [#/Vol] 363 10*3/uL 150-450 [facility] Potassium [Moles/volume] in Serum or PlasmaOrdered By: Williams Shepherd on 03-26-2023 Potassium [Moles/Vol] 5.0 mmol/L 3.5-5.1 [facility] Prothrombin Time INRon 03-26 INR Coag (PPP) [Relative time] 2.3 {INR} Normal [facility] Comment on above: Result Comment: INR [...] #### P T, BMP, CBC, PTT #### [facility] [address] [id number] [facility] PT Coag (PPP) [Time] 26.6 s High 9.0-12.9 [facility] Comment on above: Result Comment: A he matocrit value greater than 55% may lead to inaccurate results in coagulation testing. Patients having hematocrit values >55% require a special collection tube for coagulation studies. Please contact the laboratory at [phone] for redraw instructions. Performed By: #### P T, BMP, CBC, PTT #### [facility] [address] [place] [address] [facility] Prothrombin time (PT)Ordered By: Williams Shepherd on 03-26-2023 PT Coag (PPP) [Time] 26.6 s 9.0-12.9 [facility] Comment on above: A hematocrit value g reater than 55% may lead to inaccurate results in coagulation testing. Patients having hematocrit values >55% require a special collection tube for coagulation studies. Please contact the laboratory at [phone] for redraw instructions. RBC Auto (Bld) [#/Vol]Ordere d By: Williams Shepherd on 03-26-2023 RBC (Bld) [#/Vol] 4.27 10*6/uL 3.60-5.00 [facility] Serum or plasma anion gap de terminationOrdered By: Williams Shepherd on 03-26-2023 Anion gap [Moles/Vol] 13.0 mmol/L 6.0-15.0 [facility] Sodium [Moles/volume] in Ser um or PlasmaOrdered By: Williams Shepherd on 03-26-2023 Sodium [Moles/Vol] 142 mmol/L 136-145 [facility] Urea nitrogen [Mass/volume] in Serum or PlasmaOrdered By: Williams Shepherd on 09-13-2023 Urea nitrogen [Mass/Vol] 12 mg/dL 02-04 [facility] WBC Auto (Bld) [#/Vol]Ordere d By: Williams Shepherd on 03-26-2023 WBC (Bld) [#/Vol] 5.9 10*3/uL 3.8-11.6 [facility] Consultation Noteon 03-17-20 Consultation Note [id number] .00CD:127 Normal [facility] Lab Reportson 02-12-2023 Lab Reports [id number] .00CD:127 Normal [facility] RAD - MISCon 02-12-2023 RAD - MISC [id number] .00CD:127 Normal [facility] RAD - CT Reporton 02-05-2023 RAD - CT Report [id number] .00CD:127 Normal [facility] RAD - MISCon 02-05-2023 RAD - MISC [id number] .00CD:127 [facility] Ambulatory Visit Summaryon 0 02-03-2023 [...] AGUIAR, Williams Venegas Where: [facility] Patient Educationon 02-04-20 23 Patient Education [...] these instructions at home: Medicines ? Take jxlj-ncr-axrczrd and prescription medicines only as told by [...] and follow (more content not included)... Normal [facility] Urology Office/Clinic Noteon 02-03-2023 Urology Office/Clinic Note Chief Complaint 16 month follow up w/ CT scan [facility] Staff Pt is here today for 16 month follow up w/ CT scan done @[facility] on 01/15/23. CT scan shows partially [...] seen blood last week on Friday and Megan Frequency: 6-7x a day due to water [...] Contact Information Williams SHEPHERD MD, URL [address] [place] [address]- Additional Instructions: Patient Education Kidney Stones I, Fanny Bowen, personally scribed for Dr. Shepherd on 02/03/2023 12:04:03. . Documentation recorded by the scribe, Fanny Bowen, accurately reflects the services(s) I performed and decisions made by me. Authenticated by Dr. Shepherd on 02/03/2023 12:37:35. Portions of this record may have been created with voice recognition artificial intelligence software, specifically [employer], [employer] and or [employer]. Substitutions may have occurred due to the inherent limitations of voice recognition and artificial intelligence software. Problem List/Past Medical History Ongoing Abdominal pain Anticoagulated Anxiety BMI 27.0-27.9,adult Depression Diabetes Former smoker Frequent urination Heart murmur History of uterine cancer Hx of retirement use of blood thin (more content not included)... Normal [facility] Comment on above: Result Comment: Elec tronically Signed By: Williams SHEPHERD MD\.br\Date and Time Signed: 02/03/23 12:39 EDT\.br\Electronically Co-Signed By: Fanny Bowen\.br\Date and Time Co-Signed: 02/03/23 12:04 EDT PROTIMEon 12-02-2022 INR Coag (PPP) [Relative time] 3.62 {INR} Normal [facility] Comment on above: Performed By: #### P T #### [facility] [address] [place] [address] Dr. Tg Fierro INR GUIDELINES SEE BELOW Normal [facility] Comment on above: Result Comment: LAURENCE RED INR: 2.0 - 3.0 CONDITIONS NOT LISTED BELOW 2.5 - 3.5 FOR PROSTHETIC HEART VALVE REPLACEMENT 2.5 - 3.5 RECURRENT THROMBOSIS Performed By: #### P T #### [facility] [address] [place] [address] Dr. Tg Fierro PT Coag (PPP) [Time] 35.7 s Critically high 9.0-11.6 [facility] Comment on above: Performed By: #### P T #### [facility] [address] [place] [address] Dr. Tg Fierro PROTIMEon 11-11-2022 INR Coag (PPP) [Relative time] 1.90 {INR} Normal [facility] Comment on above: Performed By: #### P T #### [facility] [address] [place] [address] Dr. Tg Fierro INR GUIDELINES SEE BELOW Normal [facility] Comment on above: Result Comment: LAURENCE RED INR: 2.0 - 3.0 CONDITIONS NOT LISTED BELOW 2.5 - 3.5 FOR PROSTHETIC HEART VALVE REPLACEMENT 2.5 - 3.5 RECURRENT THROMBOSIS Performed By: #### P T #### [facility] [address] [place] [address] Dr. Tg Fierro PT Coag (PPP) [Time] 19.4 s Critically high 9.0-11.6 [facility] Comment on above: Performed By: #### P T #### [facility] [address] [place] [address] Dr. Tg Fierro CBC AUTO DIFFon 10-25-2022 BASO # 0.0 103/ul Normal 0.0-0.1 [facility] Comment on above: Performed By: #### P T #### [facility] [address] [place] [address] Dr. Tg Fierro Basophils/100 WBC (Bld) 0.5 % Normal 0.2-2.0 [facility] Comment on above: Performed By: #### P T #### [facility] [address] [place] [address] Dr. Tg Fierro EO # 0.2 103/ul Normal 0.0-0.7 [facility] Comment on above: Performed By: #### P T #### [facility] [address] [place] [address] Dr. Tg Fierro Eosinophils/100 WBC (Bld) 2.7 % Normal 0.9-7.0 [facility] Comment on above: Performed By: #### P T #### [facility] [address] [place] [address] Dr. Tg Fierro Erythrocyte distribution width (RBC) [Ratio] 13.4 % Normal 11.0-15.0 [facility] Comment on above: Performed By: #### P T #### [facility] [address] [place] [address] Dr. Tg Fierro Hematocrit (Bld) [Volume fraction] 40.7 % Normal 36.0-48.0 [facility] Comment on above: Performed By: #### P T #### [facility] [address] [place] [address] Dr. Tg Fierro Hemoglobin (Bld) [Mass/Vol] 13.2 g/dL Normal 12.0-16.0 [facility] Comment on above: Performed By: #### P T #### [facility] [address] [place] [address] Dr. Tg Fierro IG # 0.03 10e3/ul Normal 0.00-0.03 [facility] Comment on above: Performed By: #### P T #### [facility] [address] [place] [address] Dr. Tg Fierro IG % 0.5 % Normal 0.0-0.5 [facility] Comment on above: Performed By: #### P T #### [facility] [address] [place] [address] Dr. Tg Fierro LYMPH # 2.1 103/ul Normal 1.2-3.8 [facility] Comment on above: Performed By: #### P T #### [facility] [address] [place] [address] Dr. Tg Fierro Lymphocytes/100 WBC (Bld) 34.9 % Normal 20.5-60.0 [facility] Comment on above: Performed By: #### P T #### [facility] [address] [place] [address] Dr. Tg Fierro MANUAL DIFF REQ NO Normal [facility] Comment on above: Performed By: #### P T #### [facility] [address] [place] [address] Dr. Tg Fierro MCH (RBC) [Entitic mass] 30.5 pg Normal 26.7-34.0 [facility] Comment on above: Performed By: #### P T #### [facility] [address] [place] [address] Dr. Tg Fierro MCHC (RBC) [Mass/Vol] 32.4 g/dL Normal 29.9-35.2 [facility] Comment on above: Performed By: #### P T #### [facility] [address] [place] [address] Dr. Tg Fierro MCV (RBC) [Entitic vol] 94.0 fL Normal 81.0-99.0 [facility] Comment on above: Performed By: #### P T #### [facility] [address] [place] [address] Dr. Tg Fierro MONO # 0.4 103/ul Normal 0.3-0.8 [facility] Comment on above: Performed By: #### P T #### [facility] [address] [place] [address] Dr. Tg Fierro Monocytes/100 WBC (Bld) 7.1 % Normal 1.7-12.0 [facility] Comment on above: Performed By: #### P T #### [facility] [address] [place] [address] Dr. Tg Fierro NEUT # 3.2 103/ul Normal 1.4-6.5 [facility] Comment on above: Performed By: #### P T #### [facility] [address] [place] [address] Dr. Tg Fierro Neutrophils/100 WBC (Bld) 54.3 % Normal 43.0-75.0 [facility] Comment on above: Performed By: #### P T #### [facility] [address] [place] [address] Dr. Tg Fierro Platelet mean volume (Bld) [Entitic vol] 8.7 fL Critically low 9.5-13.5 [facility] Comment on above: Performed By: #### P T #### [facility] [address] [place] [address] Dr. Tg Fierro PLT 295 103/ul Normal 150-450 [facility] Comment on above: Performed By: #### P T #### [facility] [address] [place] [address] Dr. Tg Fierro RBC 4.33 106/ul Normal 4.20-5.40 [facility] Comment on above: Performed By: #### P T #### [facility] [address] [place] [address] Dr. Tg Fierro WBC 5.9 103/ul Normal 4.0-11.0 [facility] Comment on above: Performed By: #### P T #### [facility] [address] [place] [address] Dr. Tg Fierro PROF 14(COMP METB)on 023 Albumin [Mass/Vol] 3.8 g/dL Normal 3.4-5.0 [facility] Comment on above: Performed By: #### C MP #### [facility] [address] [place] [address] Dr. Tg Fierro Albumin/Globulin [Mass ratio] 1.2 {ratio} Normal [facility] Comment on above: Performed By: #### C MP #### [facility] [address] [address] [address] Tg Fierro ALP [Catalytic activity/Vol] 49 U/L Normal 46-116 [facility] Comment on above: Performed By: #### C MP #### [facility] [address] [address] [address] Tg Fierro ALT [Catalytic activity/Vol] 21 U/L Normal 14-59 [facility] Comment on above: Performed By: #### C MP #### [facility] [address] [address] [address] Tg Fierro Anion gap [Moles/Vol] 13.3 mmol/L Normal [facility] Comment on above: Performed By: #### C MP #### [facility] [address] [place] [address] Dr. Tg Fierro AST [Catalytic activity/Vol] 14 U/L Critically low 15-37 [facility] Comment on above: Performed By: #### C MP #### [facility] [address] [address] [address] Tg Fierro Bilirubin [Mass/Vol] 0.5 mg/dL Normal 0.2-1.0 [facility] Comment on above: Performed By: #### C MP #### [facility] [address] [place] [address] Dr. Tg Fierro Calcium [Mass/Vol] 9.5 mg/dL Normal 8.5-10.1 [facility] Comment on above: Performed By: #### C MP #### [facility] [address] [address] [address] Tg Fierro Chloride [Moles/Vol] 104 mmol/L Normal 98-107 [facility] Comment on above: Performed By: #### C MP #### [facility] [address] [address] [address] Tg Fierro CO2 [Moles/Vol] 29.3 mmol/L Normal 21.0-32.0 [facility] Comment on above: Performed By: #### C MP #### [facility] [address] [address] [address] Tg Fierro Creatinine [Mass/Vol] 0.93 mg/dL Normal 0.55-1.02 [facility] Comment on above: Performed By: #### C MP #### [facility] [address] [address] [address] Tg Fierro EGFR-AF POLISH >60 Normal >=60 [facility] Comment on above: Performed By: #### C MP #### [facility] [address] [address] [address] Tg Fierro EGFR-NON AF POLISH 59 mL/min/1.73m2 Critically low >=60 [facility] Comment on above: Performed By: #### C MP #### [facility] [address] [address] [address] Tg Fierro Globulin (S) [Mass/Vol] 3.2 g/dL Normal [facility] Comment on above: Performed By: #### C MP #### [facility] [address] [place] [address] Dr. Tg Fierro Glucose [Mass/Vol] 186 mg/dL Critically high 74-106 [facility] Comment on above: Performed By: #### C MP #### [facility] [address] [place] [address] Dr. Tg Fierro Potassium [Moles/Vol] 4.6 mmol/L Normal 3.5-5.1 [facility] Comment on above: Performed By: #### C MP #### [facility] [address] [address] [address] Tg Fierro Protein [Mass/Vol] 7.0 g/dL Normal 6.4-8.2 [facility] Comment on above: Performed By: #### C MP #### [facility] [address] [place] [address] Dr. Tg Fierro Sodium [Moles/Vol] 142 mmol/L Normal 136-145 [facility] Comment on above: Performed By: #### C MP #### [facility] [address] [address] [address] Tg Fierro Urea nitrogen [Mass/Vol] 15.0 mg/dL Normal 7.0-18.0 [facility] Comment on above: Performed By: #### C MP #### [facility] [address] [place] [address] Dr. Tg Fierro Urea nitrogen/Creatinine [Mass ratio] 16.1 mg/mg Normal [facility] Comment on above: Performed By: #### C MP #### [facility] [address] [place] [address] Dr. Tg Fierro SED RATE WESTERGRENon 2022 SED RATE 9 mm/hr Normal <=30 [facility] Comment on above: Performed By: #### C MP #### [facility] [address] [place] [address] Dr. Tg Fierro PROTIMEon 10-14-2022 INR Coag (PPP) [Relative time] 1.94 {INR} Normal [facility] Comment on above: Performed By: #### P T #### [facility] [address] [place] [address] Dr. Tg Fierro INR GUIDELINES SEE BELOW Normal [facility] Comment on above: Result Comment: LAURENCE RED INR: 2.0 - 3.0 CONDITIONS NOT LISTED BELOW 2.5 - 3.5 FOR PROSTHETIC HEART VALVE REPLACEMENT 2.5 - 3.5 RECURRENT THROMBOSIS Performed By: #### P T #### [facility] [address] [place] [address] Dr. Tg Fierro PT Coag (PPP) [Time] 19.8 s Critically high 9.0-11.6 [facility] Comment on above: Performed By: #### P T #### [facility] [address] [place] [address] Dr. Tg Fierro CBC AUTO DIFFon 09-24-2022 BASO # 0.1 103/ul Normal 0.0-0.1 [facility] Comment on above: Performed By: #### P T #### [facility] [address] [place] [address] Dr. Tg Fierro Basophils/100 WBC (Bld) 0.7 % Normal 0.2-2.0 [facility] Comment on above: Performed By: #### P T #### [facility] [address] [place] [address] Dr. Tg Fierro EO # 0.3 103/ul Normal 0.0-0.7 [facility] Comment on above: Performed By: #### P T #### [facility] [address] [place] [address] Dr. Tg Fierro Eosinophils/100 WBC (Bld) 3.6 % Normal 0.9-7.0 [facility] Comment on above: Performed By: #### P T #### [facility] [address] [place] [address] Dr. Tg Fierro Erythrocyte distribution width (RBC) [Ratio] 13.4 % Normal 11.0-15.0 [facility] Comment on above: Performed By: #### P T #### [facility] [address] [place] [address] Dr. Tg Fierro Hematocrit (Bld) [Volume fraction] 38.4 % Normal 36.0-48.0 [facility] Comment on above: Performed By: #### P T #### [facility] [address] [place] [address] Dr. Tg Fierro Hemoglobin (Bld) [Mass/Vol] 12.7 g/dL Normal 12.0-16.0 [facility] Comment on above: Performed By: #### P T #### [facility] [address] [place] [address] Dr. Tg Fierro IG # 0.05 10e3/ul Critically high 0.00-0.03 [facility] Comment on above: Performed By: #### P T #### [facility] [address] [place] [address] Dr. Tg Fierro IG % 0.7 % Critically high 0.0-0.5 [facility] Comment on above: Performed By: #### P T #### [facility] [address] [place] [address] Dr. Tg Fierro LYMPH # 2.6 103/ul Normal 1.2-3.8 [facility] Comment on above: Performed By: #### P T #### [facility] [address] [place] [address] Dr. Tg Fierro Lymphocytes/100 WBC (Bld) 34.2 % Normal 20.5-60.0 [facility] Comment on above: Performed By: #### P T #### [facility] [address] [place] [address] Dr. Tg Fierro MANUAL DIFF REQ NO Normal [facility] Comment on above: Performed By: #### P T #### [facility] [address] [place] [address] Dr. Tg Fierro MCH (RBC) [Entitic mass] 31.2 pg Normal 26.7-34.0 [facility] Comment on above: Performed By: #### P T #### [facility] [address] [place] [address] Dr. Tg Fierro MCHC (RBC) [Mass/Vol] 33.1 g/dL Normal 29.9-35.2 [facility] Comment on above: Performed By: #### P T #### [facility] [address] [place] [address] Dr. Tg Fierro MCV (RBC) [Entitic vol] 94.3 fL Normal 81.0-99.0 [facility] Comment on above: Performed By: #### P T #### [facility] [address] [place] [address] Dr. Tg Fierro MONO # 0.6 103/ul Normal 0.3-0.8 [facility] Comment on above: Performed By: #### P T #### [facility] [address] [place] [address] Dr. Tg Fierro Monocytes/100 WBC (Bld) 8.1 % Normal 1.7-12.0 [facility] Comment on above: Performed By: #### P T #### [facility] [address] [place] [address] Dr. Tg Fierro NEUT # 4.1 103/ul Normal 1.4-6.5 [facility] Comment on above: Performed By: #### P T #### [facility] [address] [address] [address] Tg Fierro Neutrophils/100 WBC (Bld) 52.7 % Normal 43.0-75.0 [facility] Comment on above: Performed By: #### P T #### [facility] [address] [address] [address] Tg Fierro Platelet mean volume (Bld) [Entitic vol] 8.7 fL Critically low 9.5-13.5 [facility] Comment on above: Performed By: #### P T #### [facility] [address] [address] [address] Tg Fierro PLT 278 103/ul Normal 150-450 [facility] Comment on above: Performed By: #### P T #### [facility] [address] [place] [address] Dr. Tg Fierro RBC 4.07 106/ul Critically low 4.20-5.40 [facility] Comment on above: Performed By: #### P T #### [facility] [address] [address] [address] Tg Fierro WBC 7.7 103/ul Normal 4.0-11.0 [facility] Comment on above: Performed By: #### P T #### [facility] [address] [place] [address] Dr. Tg Fierro PROF 14(COMP METB)on 023 Albumin [Mass/Vol] 3.9 g/dL Normal 3.4-5.0 [facility] Comment on above: Performed By: #### C MP #### [facility] [address] [address] [address] Tg Fierro Albumin/Globulin [Mass ratio] 1.4 {ratio} Normal [facility] Comment on above: Performed By: #### C MP #### [facility] [address] [address] [address] Tg Fierro ALP [Catalytic activity/Vol] 59 U/L Normal 46-116 [facility] Comment on above: Performed By: #### C MP #### [facility] [address] [address] [address] Tg Fierro ALT [Catalytic activity/Vol] 21 U/L Normal 14-59 [facility] Comment on above: Performed By: #### C MP #### [facility] [address] [address] [address] Tg Fierro Anion gap [Moles/Vol] 10.8 mmol/L Normal [facility] Comment on above: Performed By: #### C MP #### [facility] [address] [address] [address] Tg Fierro AST [Catalytic activity/Vol] 9 U/L Critically low 15-37 [facility] Comment on above: Performed By: #### C MP #### [facility] [address] [address] [address] Tg Fierro Bilirubin [Mass/Vol] 0.3 mg/dL Normal 0.2-1.0 [facility] Comment on above: Performed By: #### C MP #### [facility] [address] [address] [address] Tg Fierro Calcium [Mass/Vol] 9.1 mg/dL Normal 8.5-10.1 [facility] Comment on above: Performed By: #### C MP #### [facility] [address] [address] [address] Tg Fierro Chloride [Moles/Vol] 104 mmol/L Normal 98-107 [facility] Comment on above: Performed By: #### C MP #### [facility] [address] [address] [address] Tg Fierro CO2 [Moles/Vol] 28.3 mmol/L Normal 21.0-32.0 [facility] Comment on above: Performed By: #### C MP #### [facility] [address] [address] [address] Tg Fierro Creatinine [Mass/Vol] 0.86 mg/dL Normal 0.55-1.02 [facility] Comment on above: Performed By: #### C MP #### [facility] [address] [address] [address] Tg Fierro EGFR-AF POLISH >60 Normal >=60 [facility] Comment on above: Performed By: #### C MP #### [facility] [address] [address] [address] Tg Fierro EGFR-NON AF POLISH >60 Normal >=60 [facility] Comment on above: Performed By: #### C MP #### [facility] [address] [address] [address] Tg Fierro Globulin (S) [Mass/Vol] 2.7 g/dL Normal [facility] Comment on above: Performed By: #### C MP #### [facility] [address] [address] [address] Tg Fierro Glucose [Mass/Vol] 120 mg/dL Critically high 74-106 [facility] Comment on above: Performed By: #### C MP #### [facility] [address] [address] [address] Tg Fierro Potassium [Moles/Vol] 4.1 mmol/L Normal 3.5-5.1 [facility] Comment on above: Performed By: #### C MP #### [facility] [address] [address] [address] Tg Fierro Protein [Mass/Vol] 6.6 g/dL Normal 6.4-8.2 [facility] Comment on above: Performed By: #### C MP #### [facility] [address] [address] [address] Tg Fierro Sodium [Moles/Vol] 139 mmol/L Normal 136-145 [facility] Comment on above: Performed By: #### C MP #### [facility] [address] [address] [address] Tg Fierro Urea nitrogen [Mass/Vol] 13.0 mg/dL Normal 7.0-18.0 [facility] Comment on above: Performed By: #### C MP #### [facility] [address] [address] [address] Tg Fierro Urea nitrogen/Creatinine [Mass ratio] 15.1 mg/mg Normal [facility] Comment on above: Performed By: #### C MP #### [facility] [address] [place] [address] Dr. Tg Fierro PROTIMEon 09-24-2022 INR Coag (PPP) [Relative time] 1.35 {INR} Normal [facility] Comment on above: Performed By: #### P T #### [facility] [address] [place] [address] Dr. Tg Fierro INR GUIDELINES SEE BELOW Normal [facility] Comment on above: Result Comment: LAURENCE RED INR: 2.0 - 3.0 CONDITIONS NOT LISTED BELOW 2.5 - 3.5 FOR PROSTHETIC HEART VALVE REPLACEMENT 2.5 - 3.5 RECURRENT THROMBOSIS Performed By: #### P T #### [facility] [address] [place] [address] Dr. Tg Fierro PT Coag (PPP) [Time] 14.1 s Critically high 9.0-11.6 [facility] Comment on above: Performed By: #### P T #### [facility] [address] [place] [address] Dr. Tg Fierro SED RATE [facility] 2022 SED RATE 8 mm/hr Normal <=30 [facility] Comment on above: Performed By: #### C MP #### [facility] [address] [place] [address] Dr. Tg Fierro PROTIMEon 09-09-2022 INR Coag (PPP) [Relative time] 1.23 {INR} Normal [facility] Comment on above: Performed By: #### P T #### [facility] [address] [place] [address] Dr. Tg Fierro INR GUIDELINES SEE BELOW Normal [facility] Comment on above: Result Comment: LAURENCE RED INR: 2.0 - 3.0 CONDITIONS NOT LISTED BELOW 2.5 - 3.5 FOR PROSTHETIC HEART VALVE REPLACEMENT 2.5 - 3.5 RECURRENT THROMBOSIS Performed By: #### P T #### [facility] [address] [place] [address] Dr. Tg Fierro PT Coag (PPP) [Time] 12.9 s Critically high 9.0-11.6 [facility] Comment on above: Performed By: #### P T #### [facility] [id number] Tg Fierro ECHOCARDIO M/2D COMPLETEon 0 09-02-2022 ECHOCARDIO M/2D COMPLETE Patient: WILDA SEN Exam Date: 09/02/2022 : 1945 Gender:F Ordering : DR JAYME PEREZ . Admission #: [id number] Family : Order #: [id number] CLICK HERE TO VIEW EXAM ECHOCARDIOGRAM REPORT [...] Bender M.D. on 09/03/2022 at 17:25 Normal [facility] GLYCOHEMOGLOBIN A1Con 2022 ADA RECOMMENDATION SEE BELOW Normal [facility] Comment on above: Result Comment: ADA RECOMMENDED LIMIT 4.0 - 6.0 ADA THERAPEUTIC TARGET < 7.0 ACTION SUGGESTED > 7.0 Performed By: #### A 1C #### [facility] [address] [place] [address] Dr. Tg Fierro Glucose [Mass/Vol] 148 mg/dL Normal [facility] Comment on above: Performed By: #### A 1C #### [facility] [address] [place] [address] Dr. Tg Fierro HbA1c (Bld) [Mass fraction] 6.8 % Critically high 4.5-6.2 [facility] Comment on above: Performed By: #### A 1C #### [facility] [address] [place] [address] Dr. Tg Fierro CBC AUTO DIFFon 08-05-2022 BASO # 0.1 103/ul Normal 0.0-0.1 [facility] Comment on above: Performed By: #### C BC #### [facility] [address] [place] [address] Dr. Tg Fierro Basophils/100 WBC (Bld) 0.8 % Normal 0.2-2.0 [facility] Comment on above: Performed By: #### C BC #### [facility] [address] [place] [address] Dr. Tg Fierro EO # 0.5 103/ul Normal 0.0-0.7 [facility] Comment on above: Performed By: #### C BC #### [facility] [address] [place] [address] Dr. Tg Fierro Eosinophils/100 WBC (Bld) 7.3 % Critically high 0.9-7.0 [facility] Comment on above: Performed By: #### C BC #### [facility] [address] [place] [address] Dr. Tg Fierro Erythrocyte distribution width (RBC) [Ratio] 13.4 % Normal 11.0-15.0 [facility] Comment on above: Performed By: #### C BC #### [facility] [address] [place] [address] Dr. Tg Fierro Hematocrit (Bld) [Volume fraction] 37.1 % Normal 36.0-48.0 [facility] Comment on above: Performed By: #### C BC #### [facility] [address] [place] [address] Dr. Tg Fierro Hemoglobin (Bld) [Mass/Vol] 12.9 g/dL Normal 12.0-16.0 [facility] Comment on above: Performed By: #### C BC #### [facility] [address] [place] [address] Dr. Tg Fierro IG # 0.03 10e3/ul Normal 0.00-0.03 [facility] Comment on above: Performed By: #### C BC #### [facility] [address] [place] [address] Dr. Tg Fierro IG % 0.5 % Normal 0.0-0.5 [facility] Comment on above: Performed By: #### C BC #### [facility] [address] [place] [address] Dr. Tg Fierro LYMPH # 2.3 103/ul Normal 1.2-3.8 [facility] Comment on above: Performed By: #### C BC #### [facility] [address] [place] [address] Dr. Tg Fierro Lymphocytes/100 WBC (Bld) 34.9 % Normal 20.5-60.0 [facility] Comment on above: Performed By: #### C BC #### [facility] [address] [place] [address] Dr. Tg Fierro MANUAL DIFF REQ NO Normal [facility] Comment on above: Performed By: #### C BC #### [facility] [address] [address] [address] Tg Fierro MCH (RBC) [Entitic mass] 31.0 pg Normal 26.7-34.0 [facility] Comment on above: Performed By: #### C BC #### [facility] [address] [place] [address] Dr. Tg Fierro MCHC (RBC) [Mass/Vol] 34.8 g/dL Normal 29.9-35.2 [facility] Comment on above: Performed By: #### C BC #### [facility] [address] [place] [address] Dr. Tg Fierro MCV (RBC) [Entitic vol] 89.2 fL Normal 81.0-99.0 [facility] Comment on above: Performed By: #### C BC #### [facility] [address] [place] [address] Dr. Tg Fierro MONO # 0.4 103/ul Normal 0.3-0.8 [facility] Comment on above: Performed By: #### C BC #### [facility] [address] [place] [address] Dr. Tg Fierro Monocytes/100 WBC (Bld) 6.1 % Normal 1.7-12.0 [facility] Comment on above: Performed By: #### C BC #### [facility] [address] [place] [address] Dr. Tg Fierro NEUT # 3.3 103/ul Normal 1.4-6.5 [facility] Comment on above: Performed By: #### C BC #### [facility] [address] [place] [address] Dr. Tg Fierro Neutrophils/100 WBC (Bld) 50.4 % Normal 43.0-75.0 [facility] Comment on above: Performed By: #### C BC #### [facility] [address] [place] [address] Dr. Tg Fierro Platelet mean volume (Bld) [Entitic vol] 8.6 fL Critically low 9.5-13.5 [facility] Comment on above: Performed By: #### C BC #### [facility] [address] [place] [address] Dr. Tg Fierro PLT 336 103/ul Normal 150-450 [facility] Comment on above: Performed By: #### C BC #### [facility] [address] [place] [address] Dr. Tg Fierro RBC 4.16 106/ul Critically low 4.20-5.40 [facility] Comment on above: Performed By: #### C BC #### [facility] [address] [place] [address] Dr. Tg Fierro WBC 6.4 103/ul Normal 4.0-11.0 [facility] Comment on above: Performed By: #### C BC #### [facility] [address] [place] [address] Dr. Tg Fierro PROF 14(COMP METB)on 023 Albumin [Mass/Vol] 3.9 g/dL Normal 3.4-5.0 [facility] Comment on above: Performed By: #### P T #### [facility] [address] [place] [address] Dr. Tg Fierro Albumin/Globulin [Mass ratio] 1.3 {ratio} Normal [facility] Comment on above: Performed By: #### P T #### [facility] [address] [place] [address] Dr. Tg Fierro ALP [Catalytic activity/Vol] 60 U/L Normal 46-116 [facility] Comment on above: Performed By: #### P T #### [facility] [address] [place] [address] Dr. Tg Fierro ALT [Catalytic activity/Vol] 21 U/L Normal 14-59 [facility] Comment on above: Performed By: #### P T #### [facility] [address] [place] [address] Dr. Tg Fierro Anion gap [Moles/Vol] 15.2 mmol/L Normal [facility] Comment on above: Performed By: #### P T #### [facility] [address] [place] [address] Dr. Tg Fierro AST [Catalytic activity/Vol] 14 U/L Critically low 15-37 [facility] Comment on above: Performed By: #### P T #### [facility] [address] [address] [address] Tg Fierro Bilirubin [Mass/Vol] 0.4 mg/dL Normal 0.2-1.0 [facility] Comment on above: Performed By: #### P T #### [facility] [address] [address] [address] Tg Fierro Calcium [Mass/Vol] 9.3 mg/dL Normal 8.5-10.1 [facility] Comment on above: Performed By: #### P T #### [facility] [address] [place] [address] Dr. Tg Fierro Chloride [Moles/Vol] 102 mmol/L Normal 98-107 [facility] Comment on above: Performed By: #### P T #### [facility] [address] [address] [address] Tg Fierro CO2 [Moles/Vol] 26.8 mmol/L Normal 21.0-32.0 [facility] Comment on above: Performed By: #### P T #### [facility] [address] [place] [address] Dr. Tg Fierro Creatinine [Mass/Vol] 0.74 mg/dL Normal 0.55-1.02 [facility] Comment on above: Performed By: #### P T #### [facility] [address] [place] [address] Dr. Tg Fierro EGFR-AF POLISH >60 Normal >=60 [facility] Comment on above: Performed By: #### P T #### [facility] [address] [address] [address] Tg Fierro EGFR-NON AF POLISH >60 Normal >=60 [facility] Comment on above: Performed By: #### P T #### [facility] [address] [place] [address] Dr. Tg Fierro Globulin (S) [Mass/Vol] 3.1 g/dL Normal [facility] Comment on above: Performed By: #### P T #### [facility] [address] [address] [address] Tg Fierro Glucose [Mass/Vol] 148 mg/dL Critically high 74-106 [facility] Comment on above: Performed By: #### P T #### [facility] [address] [address] [address] Tg Fierro Potassium [Moles/Vol] 4.0 mmol/L Normal 3.5-5.1 [facility] Comment on above: Performed By: #### P T #### [facility] [address] [address] [address] Tg Fierro Protein [Mass/Vol] 7.0 g/dL Normal 6.4-8.2 [facility] Comment on above: Performed By: #### P T #### [facility] [address] [place] [address] Dr. Tg Fierro Sodium [Moles/Vol] 140 mmol/L Normal 136-145 [facility] Comment on above: Performed By: #### P T #### [facility] [address] [place] [address] Dr. Tg Fierro Urea nitrogen [Mass/Vol] 12.0 mg/dL Normal 7.0-18.0 [facility] Comment on above: Performed By: #### P T #### [facility] [address] [address] [address] Tg Fierro Urea nitrogen/Creatinine [Mass ratio] 16.2 mg/mg Normal [facility] Comment on above: Performed By: #### P T #### [facility] [address] [address] [address] Tg Fierro SED RATE WESTERGRENon 2022 SED RATE 30 mm/hr Normal <=30 [facility] Comment on above: Performed By: #### S EDR #### [facility] [address] [address] [address] Tg Fierro CBC AUTO DIFFon 04-15-2022 BASO # 0.1 103/ul Normal 0.0-0.1 [facility] Comment on above: Performed By: #### C BC #### [facility] [address] [address] [address] Tg Fierro Basophils/100 WBC (Bld) 0.6 % Normal 0.2-2.0 [facility] Comment on above: Performed By: #### C BC #### [facility] [address] [address] [address] Tg Fierro EO # 0.2 103/ul Normal 0.0-0.7 [facility] Comment on above: Performed By: #### C BC #### [facility] [address] [address] [address] Tg Fierro Eosinophils/100 WBC (Bld) 3.1 % Normal 0.9-7.0 [facility] Comment on above: Performed By: #### C BC #### [facility] [address] [place] [address] Dr. Tg Fierro Erythrocyte distribution width (RBC) [Ratio] 13.6 % Normal 11.0-15.0 [facility] Comment on above: Performed By: #### C BC #### [facility] [address] [address] [address] Tg Fierro Hematocrit (Bld) [Volume fraction] 42.3 % Normal 36.0-48.0 [facility] Comment on above: Performed By: #### C BC #### [facility] [address] [address] [address] Tg Fierro Hemoglobin (Bld) [Mass/Vol] 13.2 g/dL Normal 12.0-16.0 [facility] Comment on above: Performed By: #### C BC #### [facility] [address] [address] [address] Tg Fierro IG # 0.04 10e3/ul Critically high 0.00-0.03 [facility] Comment on above: Performed By: #### C BC #### [facility] [address] [address] [address] Tg Fierro IG % 0.5 % Normal 0.0-0.5 [facility] Comment on above: Performed By: #### C BC #### [facility] [address] [place] [address] Dr. Tg Fierro LYMPH # 2.5 103/ul Normal 1.2-3.8 [facility] Comment on above: Performed By: #### C BC #### [facility] [address] [place] [address] Dr. Tg Fierro Lymphocytes/100 WBC (Bld) 31.6 % Normal 20.5-60.0 [facility] Comment on above: Performed By: #### C BC #### [facility] [address] [place] [address] Dr. Tg Fierro MANUAL DIFF REQ NO Normal [facility] Comment on above: Performed By: #### C BC #### [facility] [address] [place] [address] Dr. Tg Fierro MCH (RBC) [Entitic mass] 30.3 pg Normal 26.7-34.0 [facility] Comment on above: Performed By: #### C BC #### [facility] [address] [place] [address] Dr. Tg Fierro MCHC (RBC) [Mass/Vol] 31.2 g/dL Normal 29.9-35.2 [facility] Comment on above: Performed By: #### C BC #### [facility] [address] [place] [address] Dr. Tg Fierro MCV (RBC) [Entitic vol] 97.0 fL Normal 81.0-99.0 [facility] Comment on above: Performed By: #### C BC #### [facility] [address] [place] [address] Dr. Tg Fierro MONO # 0.5 103/ul Normal 0.3-0.8 [facility] Comment on above: Performed By: #### C BC #### [facility] [address] [place] [address] Dr. Tg Fierro Monocytes/100 WBC (Bld) 6.3 % Normal 1.7-12.0 [facility] Comment on above: Performed By: #### C BC #### [facility] [address] [place] [address] Dr. Tg Fierro NEUT # 4.5 103/ul Normal 1.4-6.5 [facility] Comment on above: Performed By: #### C BC #### [facility] [address] [place] [address] Dr. Tg Fierro Neutrophils/100 WBC (Bld) 57.9 % Normal 43.0-75.0 [facility] Comment on above: Performed By: #### C BC #### [facility] [address] [place] [address] Dr. Tg Fierro Platelet mean volume (Bld) [Entitic vol] 8.6 fL Critically low 9.5-13.5 [facility] Comment on above: Performed By: #### C BC #### [facility] [address] [place] [address] Dr. Tg Fierro PLT 295 103/ul Normal 150-450 [facility] Comment on above: Performed By: #### C BC #### [facility] [address] [place] [address] Dr. Tg Fierro RBC 4.36 106/ul Normal 4.20-5.40 [facility] Comment on above: Performed By: #### C BC #### [facility] [address] [place] [address] Dr. Tg Fierro WBC 7.8 103/ul Normal 4.0-11.0 [facility] Comment on above: Performed By: #### C BC #### [facility] [address] [place] [address] Dr. Tg Fierro PROF 14(COMP METB)on 022 Albumin [Mass/Vol] 4.5 g/dL Normal 3.4-5.0 [facility] Comment on above: Performed By: #### C MP #### [facility] [address] [place] [address] Dr. Tg Fierro Albumin/Globulin [Mass ratio] 1.5 {ratio} Normal [facility] Comment on above: Performed By: #### C MP #### [facility] [address] [address] [address] Tg Fierro ALP [Catalytic activity/Vol] 62 U/L Normal 46-116 [facility] Comment on above: Performed By: #### C MP #### [facility] [address] [place] [address] Dr. Tg Fierro ALT [Catalytic activity/Vol] 25 U/L Normal 14-59 [facility] Comment on above: Performed By: #### C MP #### [facility] [address] [address] [address] Tg Fierro Anion gap [Moles/Vol] 10.6 mmol/L Normal [facility] Comment on above: Performed By: #### C MP #### [facility] [address] [place] [address] Dr. Tg Fierro AST [Catalytic activity/Vol] 12 U/L Critically low 15-37 [facility] Comment on above: Performed By: #### C MP #### [facility] [address] [place] [address] Dr. Tg Fierro Bilirubin [Mass/Vol] 0.5 mg/dL Normal 0.2-1.0 [facility] Comment on above: Performed By: #### C MP #### [facility] [address] [place] [address] Dr. Tg Fierro Calcium [Mass/Vol] 9.8 mg/dL Normal 8.5-10.1 [facility] Comment on above: Performed By: #### C MP #### [facility] [address] [place] [address] Dr. Tg Fierro Chloride [Moles/Vol] 102 mmol/L Normal 98-107 [facility] Comment on above: Performed By: #### C MP #### [facility] [address] [place] [address] Dr. Tg Fierro CO2 [Moles/Vol] 31.8 mmol/L Normal 21.0-32.0 [facility] Comment on above: Performed By: #### C MP #### [facility] [address] [place] [address] Dr. Tg Fierro Creatinine [Mass/Vol] 0.88 mg/dL Normal 0.55-1.02 [facility] Comment on above: Performed By: #### C MP #### [facility] [address] [address] [address] Tg Fierro EGFR-AF POLISH >60 Normal >=60 [facility] Comment on above: Performed By: #### C MP #### [facility] [address] [address] [address] Tg Fierro EGFR-NON AF POLISH >60 Normal >=60 [facility] Comment on above: Performed By: #### C MP #### [facility] [address] [address] [address] Tg Fierro Globulin (S) [Mass/Vol] 3.1 g/dL Normal [facility] Comment on above: Performed By: #### C MP #### [facility] [address] [address] [address] Tg Fierro Glucose [Mass/Vol] 187 mg/dL Critically high 74-106 [facility] Comment on above: Performed By: #### C MP #### [facility] [address] [address] [address] Tg Fierro Potassium [Moles/Vol] 4.4 mmol/L Normal 3.5-5.1 [facility] Comment on above: Performed By: #### C MP #### [facility] [address] [address] [address] Tg Fierro Protein [Mass/Vol] 7.6 g/dL Normal 6.4-8.2 [facility] Comment on above: Performed By: #### C MP #### [facility] [address] [address] [address] Tg Fierro Sodium [Moles/Vol] 140 mmol/L Normal 136-145 [facility] Comment on above: Performed By: #### C MP #### [facility] [address] [address] [address] Tg Fierro Urea nitrogen [Mass/Vol] 14.0 mg/dL Normal 7.0-18.0 [facility] Comment on above: Performed By: #### C MP #### [facility] [address] [place] [address] Dr. Tg Fierro Urea nitrogen/Creatinine [Mass ratio] 15.9 mg/mg Normal [facility] Comment on above: Performed By: #### C MP #### [facility] [address] [place] [address] Dr. Tg Fierro SED RATE WESTERGRENon 2021 SED RATE 5 mm/hr Normal <=30 [facility] Comment on above: Performed By: #### S EDR #### [facility] [address] [place] [address] Dr. Tg Fierro CBC AUTO DIFFon 02-07-2022 BASO # 0.0 103/ul Normal 0.0-0.1 [facility] Comment on above: Performed By: #### P T #### [facility] [address] [place] [address] Dr. Tg Fierro Basophils/100 WBC (Bld) 0.6 % Normal 0.2-2.0 [facility] Comment on above: Performed By: #### P T #### [facility] [address] [place] [address] Dr. Tg Fierro EO # 0.4 103/ul Normal 0.0-0.7 [facility] Comment on above: Performed By: #### P T #### [facility] [address] [place] [address] Dr. Tg Fierro Eosinophils/100 WBC (Bld) 5.4 % Normal 0.9-7.0 [facility] Comment on above: Performed By: #### P T #### [facility] [address] [place] [address] Dr. Tg Fierro Erythrocyte distribution width (RBC) [Ratio] 13.5 % Normal 11.0-15.0 [facility] Comment on above: Performed By: #### P T #### [facility] [address] [place] [address] Dr. Tg Fierro Hematocrit (Bld) [Volume fraction] 39.4 % Normal 36.0-48.0 [facility] Comment on above: Performed By: #### P T #### [facility] [address] [address] [address] Tg Fierro Hemoglobin (Bld) [Mass/Vol] 12.8 g/dL Normal 12.0-16.0 [facility] Comment on above: Performed By: #### P T #### [facility] [address] [place] [address] Dr. Tg Fierro IG # 0.02 10e3/ul Normal 0.00-0.03 [facility] Comment on above: Performed By: #### P T #### [facility] [address] [place] [address] Dr. Tg Fierro IG % 0.3 % Normal 0.0-0.5 [facility] Comment on above: Performed By: #### P T #### [facility] [address] [place] [address] Dr. Tg Fierro LYMPH # 2.4 103/ul Normal 1.2-3.8 [facility] Comment on above: Performed By: #### P T #### [facility] [address] [place] [address] Dr. Tg Fierro Lymphocytes/100 WBC (Bld) 36.2 % Normal 20.5-60.0 [facility] Comment on above: Performed By: #### P T #### [facility] [address] [place] [address] Dr. Tg Fierro MANUAL DIFF REQ NO Normal [facility] Comment on above: Performed By: #### P T #### [facility] [address] [place] [address] Dr. Tg Fierro MCH (RBC) [Entitic mass] 31.0 pg Normal 26.7-34.0 [facility] Comment on above: Performed By: #### P T #### [facility] [address] [place] [address] Dr. Tg Fierro MCHC (RBC) [Mass/Vol] 32.5 g/dL Normal 29.9-35.2 [facility] Comment on above: Performed By: #### P T #### [facility] [address] [address] [address] Tg Fierro MCV (RBC) [Entitic vol] 95.4 fL Normal 81.0-99.0 [facility] Comment on above: Performed By: #### P T #### [facility] [address] [address] [address] Tg Fierro MONO # 0.5 103/ul Normal 0.3-0.8 [facility] Comment on above: Performed By: #### P T #### [facility] [address] [address] [address] Tg Fierro Monocytes/100 WBC (Bld) 8.0 % Normal 1.7-12.0 [facility] Comment on above: Performed By: #### P T #### [facility] [address] [place] [address] Dr. Tg Fierro NEUT # 3.3 103/ul Normal 1.4-6.5 [facility] Comment on above: Performed By: #### P T #### [facility] [address] [address] [address] Tg Fierro Neutrophils/100 WBC (Bld) 49.5 % Normal 43.0-75.0 [facility] Comment on above: Performed By: #### P T #### [facility] [address] [place] [address] Dr. Tg Fierro Platelet mean volume (Bld) [Entitic vol] 8.7 fL Critically low 9.5-13.5 [facility] Comment on above: Performed By: #### P T #### [facility] [address] [place] [address] Dr. Tg Fierro PLT 276 103/ul Normal 150-450 [facility] Comment on above: Performed By: #### P T #### [facility] [address] [address] [address] Tg Fierro RBC 4.13 106/ul Critically low 4.20-5.[address] [facility] Comment on above: Performed By: #### P T #### [facility] [address] [address] [address] Tg Fierro WBC 6.7 103/ul Normal 4.0-11.0 [facility] Comment on above: Performed By: #### P T #### [facility] [address] [address] [address] Tg Fierro GLYCOHEMOGLOBIN A1Con 2021 ADA RECOMMENDATION SEE BELOW Normal The [facility] Comment on above: Result Comment: ADA RECOMMENDED LIMIT 4.0 - 6.0 ADA THERAPEUTIC TARGET < 7.0 ACTION SUGGESTED > 7.0 Performed By: #### A 1C #### [facility] [address] [address] [address] Tg Fierro Glucose [Mass/Vol] 151 mg/dL Normal [facility] Comment on above: Performed By: #### A 1C #### [facility] [address] [place] [address] Dr. Tg Fierro HbA1c (Bld) [Mass fraction] 6.9 % Critically high 4.5-6.2 [facility] Comment on above: Performed By: #### A 1C #### [facility] [address] [address] [address] Tg Fierro PROF 14(COMP METB)on 022 Albumin [Mass/Vol] 3.8 g/dL Normal 3.4-5.0 [facility] Comment on above: Performed By: #### P T #### [facility] [address] [place] [address] Dr. Tg Fierro Albumin/Globulin [Mass ratio] 1.3 {ratio} Normal [facility] Comment on above: Performed By: #### P T #### [facility] [address] [address] [address] Tg Fierro ALP [Catalytic activity/Vol] 43 U/L Critically low 46-116 [facility] Comment on above: Performed By: #### P T #### [facility] [address] [place] [address] Dr. Tg Fierro ALT [Catalytic activity/Vol] 19 U/L Normal 14-59 [facility] Comment on above: Performed By: #### P T #### [facility] [address] [address] [address] Tg Fierro Anion gap [Moles/Vol] 13.7 mmol/L Normal [facility] Comment on above: Performed By: #### P T #### [facility] [address] [address] [address] Tg Fierro AST [Catalytic activity/Vol] 11 U/L Critically low 15-37 [facility] Comment on above: Performed By: #### P T #### [facility] [address] [address] [address] Tg Fierro Bilirubin [Mass/Vol] 0.4 mg/dL Normal 0.2-1.0 [facility] Comment on above: Performed By: #### P T #### [facility] [address] [place] [address] Dr. Tg Fierro Calcium [Mass/Vol] 9.1 mg/dL Normal 8.5-10.1 [facility] Comment on above: Performed By: #### P T #### [facility] [address] [address] [address] Tg Fierro Chloride [Moles/Vol] 104 mmol/L Normal 98-107 [facility] Comment on above: Performed By: #### P T #### [facility] [address] [address] [address] Tg Fierro CO2 [Moles/Vol] 28.5 mmol/L Normal 21.0-32.0 [facility] Comment on above: Performed By: #### P T #### [facility] [address] [address] [address] Tg Fierro Creatinine [Mass/Vol] 0.77 mg/dL Normal 0.55-1.02 [facility] Comment on above: Performed By: #### P T #### [facility] [address] [address] [address] Tg Fierro EGFR-AF POLISH >60 Normal >=60 [facility] Comment on above: Performed By: #### P T #### [facility] [address] [place] [address] Dr. Tg Fierro EGFR-NON AF POLISH >60 Normal >=60 [facility] Comment on above: Performed By: #### P T #### [facility] [address] [place] [address] Dr. Tg Fierro Globulin (S) [Mass/Vol] 3.0 g/dL Normal [facility] Comment on above: Performed By: #### P T #### [facility] [address] [place] [address] Dr. Tg Fierro Glucose [Mass/Vol] 124 mg/dL Critically high 74-106 [facility] Comment on above: Performed By: #### P T #### [facility] [address] [place] [address] Dr. Tg Fierro Potassium [Moles/Vol] 4.2 mmol/L Normal 3.5-5.1 [facility] Comment on above: Performed By: #### P T #### [facility] [address] [place] [address] Dr. Tg Fierro Protein [Mass/Vol] 6.8 g/dL Normal 6.4-8.2 [facility] Comment on above: Performed By: #### P T #### [facility] [address] [place] [address] Dr. Tg Fierro Sodium [Moles/Vol] 142 mmol/L Normal 136-145 [facility] Comment on above: Performed By: #### P T #### [facility] [address] [place] [address] Dr. Tg Fierro Urea nitrogen [Mass/Vol] 12.0 mg/dL Normal 7.0-18.0 [facility] Comment on above: Performed By: #### P T #### [facility] [address] [place] [address] Dr. Tg Fierro Urea nitrogen/Creatinine [Mass ratio] 15.6 mg/mg Normal [facility] Comment on above: Performed By: #### P T #### [facility] [address] [place] [address] Dr. Tg Fierro SED RATE [facility] 2021 SED RATE 8 mm/hr Normal <=30 [facility] Comment on above: Performed By: #### C MP #### [facility] [address] [place], [place] [address] Dr[address] Tg Fierro COVID Quick Testingon 2020 Result Positive [employer] Other Vital Signs Date Time Vital Sign Value Performing Clinician Facility 08-13-2023 10:47-0500 Blood Pressure Location Renato SANTACRUZ [facility] 08-13-2023 10:47-0500 Diastolic blood pressure 62 mm[Hg] Renato SANTACRUZ [facility] 08-13-2023 10:47-0500 Heart rate 82 /min Renato SANTACRUZ [facility] 08-13-2023 10:47-0500 Respiratory rate 16 /min Renato SANTACRUZ [facility] 08-13-2023 10:47-0500 Systolic blood pressure 105 mm[Hg] Renato SANTACRUZ [facility] 08-07-2023 09:48-0500 Body height 160 cm Jayme Perez MD Work Phone: [facility] 08-07-2023 09:48-0500 Body mass index (BMI) [Ratio] 24.45 kg/m2 Jayme Perez MD Work Phone: [facility] 08-07-2023 09:48-0500 Body weight 62.6 kg Jayme Perez MD Work Phone: [facility] 08-07-2023 09:48-0500 Heart rate 57 /min Jayme Perez MD Work Phone: [facility] 08-07-2023 09:48-0500 SaO2% (BldA) [Mass fraction] 98 % Jayme Perez MD Work Phone: [facility] 07-25-2023 09:20-0500 Body height 160.02 cm Lou Glover Other [employer] Other 07-25-2023 09:20-0500 Body mass index (BMI) [Ratio] 23.91 kg/m2 Lou Glover Other [employer] Other 07-25-2023 09:20-0500 Body temperature 97.7 [degF] Lou Glover Other [employer] Other 07-25-2023 09:20-0500 Body weight 61.24 kg Lou Glover Other [employer] Other 07-25-2023 09:20-0500 Diastolic blood pressure 74 mm[Hg] Lou Glover Other [employer] Other 07-25-2023 09:20-0500 Respiratory rate 18 /min Lou Glover Other [employer] Other 07-25-2023 09:20-0500 SaO2% (BldA) [Mass fraction] 96 % Lou Glover Other [employer] Other 07-25-2023 09:20-0500 Systolic blood pressure 120 mm[Hg] Lou Glover Other [employer] Other 03-26-2023 13:15-0400 Body height 160.02 cm MD Jayme Perez Work Phone: [facility] 03-26-2023 13:15-0400 Body temperature 98.2 [degF] MD Jayme Perez Work Phone: [facility] 03-26-2023 13:15-0400 Body weight 66 kg MD Jayme Perez Work Phone: [facility] 03-26-2023 13:15-0400 Diastolic blood pressure 71 mm[Hg] MD Jayme Perez Work Phone: [facility] 03-26-2023 13:15-0400 Heart rate 87 /min MD Jayme Perez Work Phone: [facility] 03-26-2023 13:15-0400 Respiratory rate 16 /min MD Jayme Perez Work Phone: [facility] 03-26-2023 13:15-0400 SaO2% (BldA) [Mass fraction] 97 % MD Jayme Perez Work Phone: [facility] 03-26-2023 13:15-0400 Systolic blood pressure 117 mm[Hg] MD Jayme Perez Work Phone: [facility] 05-21-2021 13:15-0500 Body height 160.02 cm Astrid Baker Other [employer] Other 05-21-2021 13:15-0500 Body mass index (BMI) [Ratio] 23.91 kg/m2 Astrid Baker Other [employer] Other 05-21-2021 13:15-0500 Body temperature 97.3 [degF] Astrid Baker Other [employer] Other 05-21-2021 13:15-0500 Body weight 61.24 kg Astrid Baker Other [employer] Other 05-21-2021 13:15-0500 SaO2% (BldA) [Mass fraction] 94 % Astrid Baker Other [employer] Other Encounters Encounter Date Encounter Type Care Provider Facility Start: 09-01-2023 End: 09-01-2023 ambulatory FELICIA FARMER Not Available Start: 08-20-2023 Clinisync Result Encounter Generic External Data Provider [facility] External [facility] Unsolicited Start: 08-20-2023 Clinisync Result Encounter Generic External Data Provider [facility] External Department Unsolicited Start: 08-14-2023 End: 08-15-2023 ambulatory Renato SANTACRUZ Facility:[id number] Start: 08-13-2023 End: 08-14-2023 ambulatory Renato SANTACRUZ Facility:[facility] Start: 08-13-2023 End: 08-13-2023 Patient encounter procedure Renato R SANTACRUZ [facility] Start: 08-07-2023 End: 08-07-2023 [...] (CMS/HCC); Microalbuminuria; Former smoker; 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, adult; retirement current use of anticoagulant; Psoriatic arthropathy (CMS/HCC); Gastroesophageal reflux disease without esophagitis Start: 07-30-2023 End: 07-30-2023 ambulatory JAYME PEREZ Not Available Start: 07-25-2023 End: 07-25-2023 ambulatory Lou Glover Other [employer] Other Start: 07-25-2023 Office outpatient vi sit 25 minutes Lou Glover [facility] Start: 07-10-2023 End: 07-10-2023 ambulatory FELICIA HITCHCOCKHLER Not Available Start: 07-02-2023 End: 07-02-2023 ambulatory FELICIA HITCHCOCKHLER Not Available Start: 06-25-2023 End: 06-25-2023 ambulatory FELICIAZULEIMA HITCHCOCKHLER Not Available Start: 06-18-2023 End: 06-18-2023 ambulatory FELICIAZULEIMA HITCHCOCKHLER Not Available Start: 04-07-2023 End: 04-07-2023 ambulatory Williams Shepherd Facility:[facility] Start: 04-07-2023 End: 04-07-2023 Departed Referred MD Jayme Perez Work Phone: [facility] [place] Start: 04-07-2023 End: 04-08-2023 ambulatory MD Jayme Perez Work Phone: [facility] Work Phone: Start: 03-26-2023 End: 03-26-2023 ambulatory Williams Shepherd Facility:[facility] Start: 03-26-2023 End: 03-26-2023 Patient encounter procedure MD Jayme Perez Work Phone: [facility] Work Phone: Start: 03-20-2023 End: 03-21-2023 ambulatory Williams SHEPHERD Facility:[facility] Start: 03-20-2023 End: 03-20-2023 Lab Drop off Williams SHEPHERD [facility] Start: 03-20-2023 End: 03-20-2023 Patient encounter procedure Williams SHEPHERD [facility] Start: 02-03-2023 End: 02-04-2023 ambulatory Williams [...] 05-21-2021 End: 05-21-2021 ambulatory Astrid Baker Other [employer] Other Start: 05-21-2021 Office outpatient vi sit 15 minutes Astrid Baker [facility] Procedures Date Procedure Procedure [...] SHEPHERD Abdominal hysterectomy Bhavesh SANTACRUZ Appendectomy Renato [employer] Extraction of cataract Bhavesh resendiz SANTACRUZ Partial lobectomy of lung Pa andreyk SANTACRUZ Tonsillectomy Renato SANTACRUZ Plan of Treatment Date Care Activity Detail Author Start: 05-19-2025 Glaucoma screening Diabetes: Retinopathy Screening [facility] Start: 07-12-2024 ambulatory Ambulatory Facility:[facility] Start: 05-22-2024 Medicare Annual Wellness (AWV) Medicare Annual Wellness (AWV) [facility] Start: 10-14-2023 ambulatory Ambulatory Facility:[facility] Start: 09-01-2023 End: 09-01-2023 Patient encounter procedure 09/01/2023 10:30 AM EST Office Visit [facility] [address] [place] [id number] Felicia Farmer DO [address] [place] [address] [facility] Start: 05-06-2023 Hemoglobin A1c measurement Diabetes: Hemoglobin A1C [facility] Start: 04-07-2023 Abdomen endoscopy OR Cysto/Retro/Stent/Stone/ Holmium Laser (Right) [facility] Start: 03-14-2023 Influenza vaccination Influenza Vaccine (#1) [facility] Start: 1951 Pneumococcal Vaccine: 65+ Years (1 - PCV) Pneumococcal Vaccine: 65+ Years (1 - PCV) [facility] Immunizations Immunization Date Immunization Notes Care Provider Fa darek NEGATED: Highlighted row has not occurred!08-13-2023 influenza virus vaccine, unspecified formulation Renato SANTACRUZ [facility] NEGATED: Highlighted row has not occurred!08-13-2023 SARS-CoV-2 mRNA (tozinameran 5y-11y) vaccine Renato SANTACRUZ [facility] NEGATED: Highlighted row has not occurred!09-21-2019 influenza virus vaccine, live, attenuated, for intranasal use [employer] [facility] NEGATED: Highlighted row has not occurred!08-20-2019 influenza virus vaccine, live, attenuated, for intranasal use [employer] [facility] Payers Date Payer Category Payer Self-pay [id number] 2022 Unknown [employer] [id number] 2022-Present [address] [address] [place] [address] [id number] 2022 Medicare [id number] 2002 Medicare MEDICARE MEDICAR E PART B [id number] 2002-[place] [address] Medicare [id number] 1959 Medicare [id number] 2.16.840.1.141453.19 1959 Unknown [id number] 1946 Unknown [id number] 2.16.840.1.815787.3.579.2.59 3 1946 Unknown [id number] 2.16.840.1.560424.3.579.2.59 3 1946 Unknown [id number] 2.16.840.1.575417.3.579.2.59 3 1946 Unknown [id number] 2.16.840.1.213700.3.579.2.59 3 1946 Unknown [id number] 2.16.840.1.883398.3.579.2.59 3 1946 Unknown [id number] 2.16.840.1.016308.3.579.2.59 3 1946 Unknown [id number] 2.16.840.1.153811.3.579.2.59 3 1946 Unknown [id number] 2.16.840.1.566983.3.579.2.59 3 1946 Unknown [id number] 2.16.840.1.003646.3.579.2.59 3 1946 Unknown [id number] 2.16.840.1.771125.3.579.2.59 3 1946 Unknown [id number] 2.16.840.1.037524.3.579.2.59 3 194 Unknown [id number] 2.16.840.1.443822.3.579.2.59 3 1946 Unknown [id number] 2.16.840.1.217042.3.579.2.59 3 1946 Unknown [id number] 2.16.840.1.604383.3.579.2.72 7 1946 Unknown [id number] 2.16.840.1.429764.3.579.2.72 7 1946 Unknown [id number] 2.16.840.1.050507.3.579.2.72 7 1946 Unknown [id number] 2.16.840.1.161260.3.579.2.72 7 1946 Unknown [id number] 2.16.840.1.984318.3.579.2.72 7 1946 Unknown [id number] 2.16.840.1.283244.3.579.2.72 7 1946 Unknown [id number] 2.16.840.1.752646.3.579.2.72 7 1946 Unknown [id number] 2.16.840.1.119597.3.579.2.12 59 1946 Unknown [id number] 2.16.840.1.772596.3.579.2.12 59 1946 Unknown [id number] 2.16.840.1.708641.3.579.2.12 59 1946 Unknown [id number] 2.16.840.1.573758.3.579.2.12 59 1946 Unknown [id number] 2.16.840.1.631228.3.579.2.12 59 1946 Unknown [id number] 2.16.840.1.384414.3.579.2.12 59 1946 Unknown [id number] 2.16.840.1.841599.3.579.2.12 59 Unknown [id number] 2.16.840.1.160799.3.579.2.53 1 Unknown [id number] 2.16.840.1.937797.3.579.2.53 1 Social History Date Type Detail Facility Sex Assigned At [employer] Other Start: 02-03-2023 End: 08-07-2023 Tobacco smoking status Ex-smoker (finding) [facility] Tobacco smoking status Never [facility] Start: 12-11-2022 End: 05-22-2023 Sex Assigned At Female [facility] Start: 1945 Sex Assigned At Female F [facility] End: 07-14-1986 History of tobacco use Current [...] 08-13-2023 Functional Status N/A [facility] Clinical Notes 02-21-2022 to 08-13-2023 Jayme Perez [...] including vitamins, herbs, eye drops, creams, and lxhs-pwf-kolkkox medicines. Any problems you or family members [...] provider tells you to take them. ?Taking quxg-jtl-wiorrix medicines, vitamins, herbs, and supplements. Eating and [...] provider. Document Revised: 11/06/2022 Document Reviewed: 03/04/2022 [employer] Patient Education 2022 [employer]. Follow Up Care 08/12/2023 14:37:00 With:ANGELITO AGUIAR, Renato Arzola, URL Address: [facility] [address] , [place] [address]- [phone] When: Unknown Comments:sched ureteroscopyf/u w/ GPC scheduled 10/14/23 [facility] 08-07-2023 History of Present illness Narrative Patient [...] 36.1 (H) 9.0 - 11.6 sec Final [facility] INR 08/05/2023 3.67 Final Comment: DESIRED [...] 0.55 - 1.02 mg/dL Final [facility] EGFR-AF POLISH 07/22/2023 >60 >=60 Final [facility] EGFR-NON AF POLISH 07/22/2023 55 (L) >=60 Final BUN CREATININE [...] without long-term current use of insulin (HCC) ([facility]) - metFORMIN (Glucophage) 1000 MG [...] treats. Stage 3a chronic kidney disease (HCC) ([facility]) New, Chronic problem, unstable, progressing, [...] cardiovascular disease. Former smoker 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, adult retirement current use of anticoagulant Chronic problem, that is monitored monthly, and be seen in the monthly INR results. documented in this encounter [facility] 07-25-2023 Evaluation note Encounter Date Diagnosis [...] care as directed rx of steroid and Carl[place], cool mist humidification. May use Tylenol as directed. Immediate eval for signs of respiratory distress, difficulty breathing poor PO intake, signs of dehydration, fever, or other concerning symptoms. Otherwise, follow up with PCP in 2-3 days. Patient verbalizes understanding and is agreeable to treatment plan. Patient sent home in stable condition. [facility] Other 08-11-2022 NotePROCEDURE: XR FOOT LT MIN 3 VIEWS COMPARISON: None. HISTORY: Pain in left foot FINDINGS: BONES:No acute fracture or dislocation. Mild enthesopathic spurring of the calcaneus. SOFT TISSUES:Negative. No visible soft tissue swelling. EFFUSION:None visible. OTHER: Negative. IMPRESSION: Mild enthesopathic spurring of the calcaneus Electronically authenticated by: BLANCA ZAVALA Date: 2022-02-21 [facility] Future App[facility]ments Appointment Date:07/12/2024 10:45:00 AM Scheduled Provider:Williams SHEPHERD MD Location:[facility] Appointment Type:URO Office Visit [facility] Evaluation + Plan note Future Appointments Appointment Date:07/12/2024 10:45:00 AM Scheduled Provider:Williams SHEPHERD MD Location:[facility] Appointment Type:URO Office Visit Diagnostic Tests Pending * Calculi Analysis [facility] Appointment Date:10/14/2023 09:15:00 AM Scheduled Provider:Williams [facility]ERD [facility] Office Visit Appointment Date:07/12/2024 10:45:00 AM Scheduled Provider:Williams SHEPHEDR MD [facility] App[facility] Type:URO Office Visit [facility] evalutmbie noteNort [facility] Other Evaluhtdvp noteNo assessment information available [facility] Work Phone: Evaluation note* Diagnosis Chronic diastolic heart failure (CMS/HCC)- Primary Chronic diastolic heart failure 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 ([facility]/HCC) Atrial fibrillation Type 2 diabetes mellitus with stage 3a chronic kidney disease, without long-term current use of insulin (HCC) ([facility]/HCC) Stage 3a chronic kidney disease (HCC) ([facility]/HCC) Microalbuminuria Proteinuria Former smoker Personal history of tobacco use, presenting hazards to health 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, adult retirement current use of anticoagulant Psoriatic arthropathy ([facility]) Psoriatic arthropathy Gastroesophageal reflux disease without esophagitis Esophageal reflux documented in this encounter [facility] Other History general Narrative - Reported* Type Description Date Medical History Arthritis Medical History diabetes mallitus Surgical History cataract surgery [facility] Other Hospital course Narrative No data available for this section [facility] Discharge instructions No data available for this section [facility] note No data available for this section [facility] Summary Purpose Family History No Family History [...] content) DATE CREATED AUTHOR 12/20/2022 [facility] DATE CREATED AUTHOR AUTHOR'S ORGANIZ ATION 06/09/2023 [facility] DATE CREATED AUTHOR AUTHOR'S ORGANIZ ATION 08/29/2023 [facility] DATE CREATED AUTHOR AUTHOR'S ORGANIZ ATION 09/01/2023 [facility] EPIC Patient Care team informatio n (unrecognized section and content) Team Status: Active Member Role Status Dates Jayme Perez MD Primary Care Provider Active Team Status: Inactive Member Role Status Dates Jayme Perez MD Primary Care Provider Active Williams Shepherd MD Attending Provider Active [employer] Work[employer] Relationship Specialty Start Date End Date Jayme Perez MD [address] [place] [address] (Fax) PCP - General Family Medicine 11/25/22 Jayme Perez MD [address] [place] [address] (Fax) PCP - ACO Reach 12/05/22 [employer] Worker Relationship Specialty Start Date End Date Jayme Perez MD [address] [place] [address] (Fax) PCP - General Family Medicine 11/25/22 Jayme Perez MD [address] [facility] [place] [address] (Fax) PCP - ACO Reach 12/05/22 Goals [...] BE BASED ON THE PRIMARY CLINICAL RECORDS. [employer] provides no warranty or guarantee of the accuracy or completeness of information in this document.
[2023-10-03 10:30] LABS: INR 1.52; Prothrombin Time 15.7 sec (9.0-11.6)
== END 2023-10-03 09:40 | disposition home or self-care (01) ==
LOC: LAB 09:43
PROVIDERS: PCP Family Medicine; Visit Provider Family Medicine
DX: I48.0 Paroxysmal atrial fibrillation (principal); Z79.01 Long term (current) use of anticoagulants; Z51.81 Encounter for therapeutic drug level monitoring
CPT/HCPCS: 36415; 85610

== ENCOUNTER 2023-10-08 10:23 | Outpatient (OUT) | payer MEDICARE, SELFPAY ==
--- NOTE | 2023-10-08 10:42 | XR_ITS ---
The [address] [address] Patient Name: KASEY SEN MRN: [id number] date: 1945 Sex: F Assigned Patient Location: [facility] Current Patient Location: Accession/Order Number: [id number] Exam Date: 10/08/2023 10:37 Report Date: 10/09/2023 06:22 At the request of: EUGENIA SHEPHERD Procedure: XR abdomen 1V EXAMINATION: XR abdomen 1V HISTORY: Kidney Stone COMPARISON: XR abdomen 01/31/2023, CT abdomen pelvis 08/12/2023 FINDINGS: KIDNEY/URETER - RIGHT: A few small stones projecting over kidney. KIDNEY/URETER - LEFT: A few small stones projecting over kidney. PELVIS: Numerous pelvic calcifications; grossly stable favoring phleboliths. BOWEL: No abnormal dilation or deviation. BONES: No acute abnormality. OTHER: Negative. No abnormal gaseous collections. XR/XR abdomen 1V IMPRESSION: 1. Bilateral nephrolithiasis. 2. Numerous pelvic calcifications without a convincing distal ureteral stone. If there remains clinical concern follow-up with CT abdomen pelvis. Electronically authenticated by: MYRTLE KHOURY Date: 10/09/2023 06:22
--- OUTSIDE RECORDS SUMMARY | 2023-10-08 10:46 | XMS_ITS | CCD ---
Author Organization [facility] Care Team Providers Care Drum Reel Cutter Name Role Phone Astrid Baker Unavailable CAYETANO, [...] Attending Unavailable CAYETANO, DR CRUM Admdiallo Unavailable BURNT PRAIRIE, DR BLANCA Haskins Consulting Unavailable HEMEYER ., [...] Care Provider MD Williams Shepherd Attending Provider [phone] Williams Shepherd Admitting Unavailable Williams Shepherd Attending Unavailable Jayme Perez Primary Care Unavailable Williams Shepherd Attending Unavailable Jayme Perez Primary Care Unavailable Williams Shepherd Admitting Unavailable Lou Glover Unavailable Jayme Perez MD Primary Care Provider [phone] Jayme Perez MD Unavailable Williams SHEPHERD Attending Unavailable Williams SHEPHERD Attending Unavailable Renato SANTACRUZ Attending Unavailable Williams SHEPHERD P Attending Unavailable Williams SHEPHERD P Admitting Unavailable Williams SHPEHERD P Attending Unavailable Renato SANTACRUZ R Attending [...] anaphylaxis, Unknown (qualifier value) [facility] (1 source) sulfaSALAzine Drug Allergy rash [place] Other (1 source) Ciprofloxacin Drug Allergy 03-30-20 13 [facility] (2 sources) Ketorolac; Translations: [Toradol] Drug Allergy 03-30-20 13 [facility] (2 sources) metroNIDAZOLE; Translations: [MetroGel] Drug Allergy 03-30-20 13 [facility] (1 source) NSAIDs Drug allergy (disorder) 03-30-20 13 [facility] (2 sources) pioglitazone; Translations: [Actos] Drug Allergy 03-30-20 13 [facility] (1 source) Sulfonamides (Antibiotic) Drug allergy (disorder) 03-30-20 13 [facility] (8 sources) Ketorolac; Translations: [ketorolac] Drug Allergy 03-26-20 Unknown (qualifier value), Nausea (finding) [facility] Comment on above: Severe (9 sources) Latex; Translations: [latex] Drug allergy 01-07-20 Blister of skin AND/OR mucosa (finding) [facility] (7 sources) Non-steroidal anti-inflammatory agent; Translations: [NSAIDs] Drug allergy 02-19-20 22 Unknown (qualifier value) [facility] (9 sources) pioglitazone; Translations: [pioglitazone] Drug Allergy 01-07-20 23 Unknown (qualifier value) [facility] (4 sources) Sulfonamides (Antibiotic); Translations: [sulfa drugs] Drug allergy Unknown (qualifier value) [facility] (6 sources) metroNIDAZOLE; Translations: [metronidazole] Drug Allergy 02-19-20 22 Redness of Skin [facility] (2 sources) Sulfonamides (Antibiotic); Translations: [Sulfa (Sulfonamide Antibiotics)] Allergy to substance 03-26-20 Rash [facility] (2 sources) NSAIDS (Non-Steroidal Anti-Inflamma; Translations: [NSAIDS (Non-Steroidal Anti-Inflamma] Allergy to substance 03-26-20 Anaphylaxis [facility] (1 source) Ciprofloxacin Drug Allergy 03-26-20 23 [facility] (1 source) Ketorolac Drug Allergy 03-26-20 [facility] (1 source) pioglitazone Drug Allergy 03-26-20 [facility] (1 source) Non-steroidal anti-inflammatory agent Drug allergy rash [place] Other (4 sources) Substance with sulfonamide structure and antibacterial mechanism of action (substance) Drug allergy 02-19-20 rash [facility] Other (3 sources) Ketorolac Allergy to substance 01-07-20 Nausea Only [facility] (3 sources) Hydrocodone Bit-Homatrop Mbr Propensity to adverse reactions 08-07-19 Dizziness [facility] (3 sources) Medical Adhesive Remover Drug Allergy 02-19-20 [facility] Medications Current Medications Medication Drug Class(es) Dates Sig (Normalized) Sig (Original) acarbose 100 mg oral tablet (11 sources) alpha-Glucosidase Inhibitor Start: 08-17-2019 End: 02-03-2024 acarbose (Precose) 100 MG tablet Indications: Type 2 diabetes mellitus with stage 3a chronic kidney disease, without long-term current use of insulin (HCC) ([facility]/HCC) Take 1 tablet (100 mg) by [...] Refill(s) 0 Start Date: 08/13/23 Status: Ordered [id number] 200 actuat albuterol 0.09 mg/actuat metered dose [...] Date: 09/19/20 Status: Ordered Cyanocobalamin-Liver Extract (Vitamin B09-Hhqll) Tablet (1 source) Start: 03-26-2023 take 1 tablet by mouth once daily Cyanocobalamin-Liver Extract (Vitamin C76-Gstfo) Tablet Active 1 TAB PO every day at noon March 25, 2023 11:00pm dextromethorphan hydrobromide 1.5 mg/ml / pyrilamine maleate 1.5 mg/ml oral solution (1 source) Uncompetitive F-jcoevy-F-aspar muñoz Receptor Antagonist, Sigma-1 Agonist Start: 07-25-2023 take 10 mL by mouth every eight hours Cody DM 7.5-7.5 MG/5ML 10 mL Orally every [...] 08/17/19 Status: Ordered take 1 capsule by [facility] once daily esomeprazole (NexIUM) [address] [...] without long-term current use of insulin (HCC) ([facility]/HCC) Take 1 tablet (1,000 mg) by [...] Active Misc Medication (3 sources) Start: 09-19-2020 [facility] Medicatio n See Instructions, Oral Start Date: 09/19/20 Status: Ordered Start: 09-19-2020 [facility] Medicatio n ironchlate [...] 07-16-2023 Spacer/Aero-Holding Chambers (BreatheRite Leonor Spacer Adult) [facility] Indications: Chronic obstructive pulmonary disease with acute [...] Ordered Start: 08-12-2023 take 1 capsule by [facility] every twenty-four hours in the morning tamsulosin [...] Translations: [Stage 3a chronic kidney disease (HCC) ([facility]/HCC)] Onset: 12-12-2022 07-30-2023 Chronic Congestive heart failure; [...] 12-12-2022 12-12-2022 Chronic Other aftercare (1 source) exterminator termite (current) use of anticoagulants; Translations: [LONG-TERM CURRNT USE ANTICOAGULANTS] Onset: 12-11-2022 Episodic Other aftercare (5 sources) Encounter for therapeutic drug level monitoring; Translations: [ENC PARNASSUS CAMPUSTC DRUG LEVL MONITORING] Onset: 10-18-2022 Episodic Other aftercare (1 source) Other intermediate project manager (current) drug therapy; Translations: [OTH MANAGER LEGAL CURRENT DRUG THERAPY] Onset: 10-31-2022 Episodic Other aftercare (6 sources) Long-term current use of anticoagulant; Translations: [custodial (current) use of anticoagulants] Onset: 07-21-2023 Episodic [...] 12-12-2022 12-12-2022 Episodic Other aftercare (1 source) exterminator termite (current) use of oral hypoglycemic drugs; Translations: [MANAGER LEGAL USE ORAL HYPOGLYCEMIC DX] Onset: 08-12-2022 Episodic Other aftercare (1 source) custodial (current) use of insulin; Translations: [MANAGER LEGAL CURRENT USE OF INSULIN] Onset: 02-13-2022 Episodic [...] Facil ity Lab Reportson 08-27-2023 Lab Reports [id number] .00TIFF [facility] Lab Reportson 08-25-2023 Lab Reports [id number]#1 .00TIFF [facility] Lab Reports [id number] .00TIFF [facility] Lab Reportson 08-22-2023 Lab Reports [id number] .00TIFF [facility] Lab Reportson 08-21-2023 Lab Reports [id number] .00TIFF [facility] Lab Reports [id number] .00TIFF [facility] ALL BUNon 08-20-2023 Urea nitrogen [Mass/Vol] 12.0 mg/dL 7.0 - 18.0 mg/dL [facility] ALL CARBON DIOXIDEon 024 CO2 [Moles/Vol] 30.1 mmol/L 21.0 - 32.0 mmol/L [facility] ALL CHLORIDEon 08-20-2023 Chloride [Moles/Vol] 104 mmol/L 98 - 107 mmol/L [facility] ALL PHOSPHOROUSon 08-20-2023 Phosphate [Mass/Vol] 4.1 mg/dL 2.6 - 4.7 mg/dL [facility] ALL SODIUMon 08-20-2023 Sodium [Moles/Vol] 141 mmol/L 136 - 145 mmol/L [facility] ALL URIC ACIDon 08-20-2023 Urate [Mass/Vol] 4.4 mg/dL 2.6 - 6.0 mg/dL [facility] CALCIUMon 08-20-2023 Calcium [Mass/Vol] 9.1 mg/dL 8.5 - 10.1 mg/dL [facility] No Panel Informationon 08-20 [facility] CREATININEon 08-20-2023 Creatinine [Mass/Vol] 0.86 mg/dL 0.55 - 1.02 mg/dL [facility] GFR/1.73 sq M.predicted CKD-EPI (S/P/Bld) [Vol rate/Area] >60 60 - PINF [facility] EGFR-NON AF DJIBOUTIAN >60 60 - PINF [facility] Consent for Procedure/Surger yon 08-15-2023 Consent for Procedure/Surgery [id number] .00TIFF Normal [facility] ED Note-Physicianon 08-15-19 ED Note-Physician [id number]. 00TIFF Normal [facility] Lab Reportson 08-15-2023 Lab Reports [id number]#1. 00TIFF Normal [facility] Lab Reports [id number]#1 .00TIFF Normal [facility] Lab Reports [id number] .00TIFF Normal [facility] Operative Reporton Operative Report [id number] .00TIFF Normal [facility] RAD - CT Reporton 08-15-2023 RAD - CT Report [id number]. 00TIFF Normal [facility] Ambulatory Visit Summaryon 0 08-13-2023 Ambulatory [...] AGUIAR, Williams Venegas Where: [facility] Normal [address] [place] [address]- \.br\ You Need to Schedule the Following Appointments\.br \ Follow Up with ANGELITO AGUIAR, Renato Arzola, URL When: \.br\ Comments:\.br\ sched ureteroscopy\.br \ f/u w/ [facility] scheduled 10/14/23\.br\ Where:\.br\ [facility] [address]br\ [place] [address]-\.br\ [phone]\.br\ Medications\.br\ What How Much When Instructions\.br \ [...] murmur\.br\ History of uterine cancer\.br\ Hx of fci use of blood thinners\.br\ Kidney stones\.br\ Nocturia\.br\ [...] including vitamins, herbs, eye drops, creams, and fnle-sfq-brobbiu medicines.\.br\ ? \.br\ Any problems you or [...] you to take them.\.br\ ? \.br\ Taking xpfb-sws-osqzgnu medicines, vitamins, herbs, and supplements.\.br \ Eating [...] including vitamins, herbs, eye drops, creams, and jijn-lbq-awwcypm medicines. ? Any problems you or family [...] tells you to take them. ? Taking ttim-qhv-tikfael medicines, vitamins, herbs, and supplements. Eating and [...] Patient is here for follow up to [facility] ER HPI Staff Patient is here for f/u to [facility] ER on 08/12/23 due to distal right [...] Hydronephrosis with renal and ureteral calculous obstruction) [facility] ER visit 08/12/23 due to R flank [...] abdominal pain) See #1 4. Anticoagulated (Z79.01: custodial (current) use of anticoagulants) On warfarin 3mg for a-fib. States she did not take this last night. Advised pt not to take her dose today either. Follow-up With When Contact Information Renato SANTACRUZ MD, [facility] [address] [place] [address] [phone] Additional Instructions: sched ureteroscopy f/u w/ [facility] scheduled 10/14/23 Patient Education Laser Therapy for Kidney Stones I, Amy Gallagher, personally scribed for Dr. Santacruz on 08/13/2023 11:35:03. . Documentation recorded by the scribeAmy, accurately reflects the services(s) I performed and decisions made by me. Authenticated by Dr. Santacruz on 08/13/2023 11:37:02. Problem List/Past Medical History Ongoi (more content not included)... Normal [facility] Comment on above: Result Comment: Elec tronically Signed By: Renato SANTACRUZ MD\.br\Date and Time Signed: 08/13/23 11:37 EST\.br\Electronically Co-Signed By: Amy Gallagher\.br\Date and Time Co-Signed: 08/13/23 11:35 EST COVID/FLU/RSV RT-PCRon 07-25 SARS-CoV-2 (COVID-19) RNA TREASURE+probe Ql (Unsp spec) Negative [place] [employer] Other COVID/FLU/RSV RT-PCR [facility] [employer] Other COVID/FLU/RSV RT-PCR Positive [facility] [employer] Other Calculus Analysison 03-27-20 23 Calcium oxalate dihydrate Infrared spectroscopy (Stone) [Mass fraction] 100 % Invalid Interpretation Code [facility] Comment on above: Performed By: #### 1 [id number] ####[facility] [address] [place] [address] Color (Stone) Roper Invalid Interpretation Code [facility] Comment on above: Performed By: #### 1 [id number] ####[facility] [address] [place] [address] Composition Comment Invalid Interpretation Code [facility] Comment on above: Result Comment: Perc entage (Represents the % composition) Performed By: #### 1 [id number] ####[address] [place] [address] Disclaimer: Comment Invalid Interpretation Code [facility] Comment on above: Result Comment: This test was developed and its performance characteristics determined by [facility]. It has not been cleared or approved by the Food and Drug Administration. Performed at: [facility] [address] [id number] PhD Silvestre Esquivel Performed By: #### 1 [id number] ####[address] [address] Laboratory comment Noam (Report) Comment Invalid Interpretation Code [facility] Comment on above: Result Comment: Coco goode questions regarding Calculi Analysis contact [employer] at: [phone]. Performed By: #### 1 [id number] ####[address] [address] Please Note: Comment Invalid Interpretation Code [facility] Comment on above: Result Comment: Calc javier report will follow via computer, mail or gas pumper delivery. Performed By: #### 1 [id number] ####[address] [place] [address] Size (Stone) [Entitic vol] 6x4 Invalid Interpretation Code [facility] Comment on above: Result Comment: Sing le piece received. Performed By: #### 1 [id number] ####[address] [place] [address] Specimen source subject Nom Comment Invalid Interpretation Code [facility] Comment on above: Result Comment: Not provided Performed By: #### 1 [id number] ####[address] [place] [address] Stone Photo Comment Invalid Interpretation Code [facility] Comment on above: Result Comment: Phot ograph will follow under a separate cover Performed By: #### 1 [id number] ####[facility] [address] [place] [address] Weight (Stone) 49 mg Invalid Interpretation Code [facility] Comment on above: Performed By: #### 1 [id number] ####[facility] [address] [place] [address] Lab Reportson 03-27-2023 Lab Reports [id number]. 00CD:127 Normal [facility] Activated partial thrombopla stin time (aPTT) in platelet poor plasma by coagulation aOrdered By: Williams Shepherd on 03-26-2023 aPTT Coag (PPP) [Time] 35.9 s 25.1-36.5 [facility] Comment on above: A hematocrit value g reater than 55% may lead to inaccurate results in coagulation testing. Patients having hematocrit values >55% require a special collection tube for coagulation studies. Please contact the laboratory at [phone] for redraw instructions. Basic Metabolic Panelon 03-14 Anion gap [Moles/Vol] 13.0 mmol/L Normal 6.0-15.0 [facility] Comment on above: Performed By: #### P T, BMP, CBC, PTT #### [facility] [address] [place] [address] [place] Calcium [Mass/Vol] 10.0 mg/dL Normal 8.6-10.3 [facility] Comment on above: Result Comment: PERF ORMED BY: [facility] [address] [place] [address] PATHOLOGIST RN CRITICAL CARE BERNIE GRAYSON M.D. Performed By: #### P T, BMP, CBC, PTT #### [facility] [address] Chloride [Moles/Vol] 104 mmol/L Normal 98-107 [facility] Comment on above: Performed By: #### P T, BMP, CBC, PTT #### [facility] [address] [place] [address] [place] CO2 [Moles/Vol] 30.0 mmol/L Normal 21.0-31.0 [facility] Comment on above: Performed By: #### P T, BMP, CBC, PTT #### [facility] [address] [place] [address] [place] Creatinine [Mass/Vol] 0.85 mg/dL Normal 0.60-1.20 [facility] Comment on above: Performed By: #### P T, BMP, CBC, PTT #### [place] [address] [place] GFR/1.73 sq M.predicted MDRD (S/P/Bld) [Vol rate/Area] mL/min/{1.73_m2} Normal [facility] Comment on above: Performed By: #### P T, BMP, CBC, PTT #### [place] [address] [place] Glucose [Mass/Vol] 111 mg/dL High 70-100 [facility] Comment on above: Result Comment: [facility] Glucose Reference Range is dependent on time and content of last meal. Glucose of more than 200 mg/dL in a nonstressed, ambulatory subject supports the diagnosis of Diabetes Mellitus. ADA recommended reference range Performed By: #### P T, BMP, CBC, PTT #### [place] [address] [place] Potassium [Moles/Vol] 5.0 mmol/L Normal 3.5-5.1 [facility] Comment on above: Performed By: #### P T, BMP, CBC, PTT #### [place] [address] [place] Sodium [Moles/Vol] 142 mmol/L Normal 136-145 [facility] Comment on above: Performed By: #### P T, BMP, CBC, PTT #### [facility] [address] [place] [address] [place] Urea nitrogen [Mass/Vol] 12 mg/dL Normal 7-25 [facility] Comment on above: Performed By: #### P T, BMP, CBC, PTT #### [facility] [address] [place] [address] [place] Basophils Auto (Bld) [#/Vol] Ordered By: Williams Shepherd on 03-26-2023 Basophils (Bld) [#/Vol] 0.0 10*3/uL 0.0-0.2 [facility] Basophils/100 WBC Auto (Bld) Ordered By: Williams Shepherd on 03-26-2023 Basophils/100 WBC (Bld) 0.8 % . [facility] Calcium [Mass/volume] in Ser um or PlasmaOrdered By: Williams Shepherd on 03-26-2023 Calcium [Mass/Vol] 10.0 mg/dL 8.6-10.3 [facility] Carbon dioxide, total [Moles /volume] in Serum or PlasmaOrdered By: Williams Shepherd on 03-26-2023 CO2 [Moles/Vol] 30.0 mmol/L 21.0-31.0 [facility] Chloride [Moles/volume] in S fartun or PlasmaOrdered By: Williasm Shepherd on 03-26-2023 Chloride [Moles/Vol] 104 mmol/L 98-107 [facility] Complete Blood Count Auto Di ffon 03-26-2023 Basophils (Bld) [#/Vol] 0.0 10*3/uL Normal 0.0-0.2 [facility] Comment on above: Result Comment: PERF ORMED BY: [place] [address] PATHOLOGIST RN CRITICAL CARE BERNIE GRAYSON M.D. Performed By: #### P T, BMP, CBC, PTT #### [facility] [address] [place] [address] [place] Basophils/100 WBC (Bld) 0.8 % Normal . [facility] Comment on above: Performed By: #### P T, BMP, CBC, PTT #### [facility] [address] [place] [address] [place] Eosinophils (Bld) [#/Vol] 0.3 10*3/uL Normal 0.0-0.45 [facility] Comment on above: Performed By: #### P T, BMP, CBC, PTT #### [facility] [address] [place] [address] [place] Eosinophils/100 WBC (Bld) 4.3 % Normal . [facility] Comment on above: Performed By: #### P T, BMP, CBC, PTT #### [facility] [address] Erythrocyte distribution width (RBC) [Ratio] 14.8 % Normal 11.9-15.3 [facility] Comment on above: Performed By: #### P T, BMP, CBC, PTT #### [address] Hematocrit (Bld) [Volume fraction] 40.3 % Normal 34.0-46.4 [facility] Comment on above: Performed By: #### P T, BMP, CBC, PTT #### [address] Hemoglobin (Bld) [Mass/Vol] 13.3 g/dL Normal 11.8-15.4 [facility] Comment on above: Performed By: #### P T, BMP, CBC, PTT #### [place] [address] [place] Lymphocytes (Bld) [#/Vol] 2.2 10*3/uL Normal 1.00-4.8 [facility] Comment on above: Performed By: #### P T, BMP, CBC, PTT #### [place] [address] [place] Lymphocytes/100 WBC (Bld) 36.9 % Normal . [facility] Comment on above: Performed By: #### P T, BMP, CBC, PTT #### [facility] [address] [place] [address] [place] MCH (RBC) [Entitic mass] 31.1 pg Normal 24.7-34.3 [facility] Comment on above: Performed By: #### P T, BMP, CBC, PTT #### [address] MCV (RBC) [Entitic vol] 94.4 fL Normal 80-100 [facility] Comment on above: Performed By: #### P T, BMP, CBC, PTT #### [address] Mean Corpuscular HGB Conc 32.9 g/dL Normal 32.0-35.0 [facility] Comment on above: Performed By: #### P T, BMP, CBC, PTT #### [address] Monocytes (Bld) [#/Vol] 0.5 10*3/uL Normal 0.0-0.8 [facility] Comment on above: Performed By: #### P T, BMP, CBC, PTT #### [address] Monocytes/100 WBC (Bld) 7.8 % Normal . [facility] Comment on above: Performed By: #### P T, BMP, CBC, PTT #### [address] Neutrophils (Bld) [#/Vol] 3.0 10*3/uL Normal 1.8-7.7 [facility] Comment on above: Performed By: #### P T, BMP, CBC, PTT #### [address] Neutrophils/100 WBC (Bld) 50.2 % Normal . [facility] Comment on above: Performed By: #### P T, BMP, CBC, PTT #### [address] NRBC% 0.3 /100{WBC} Normal 0-0.5 [facility] Comment on above: Performed By: #### P T, BMP, CBC, PTT #### [address] Platelet mean volume (Bld) [Entitic vol] 7.1 fL Normal 6.3-10.7 [facility] Comment on above: Performed By: #### P T, BMP, CBC, PTT #### [address] Platelets (Bld) [#/Vol] 363 10*3/uL Normal 150-450 [facility] Comment on above: Performed By: #### P T, BMP, CBC, PTT #### [facility] [address] RBC (Bld) [#/Vol] 4.27 10*6/uL Normal 3.60-5.00 [facility] Comment on above: Performed By: #### P T, BMP, CBC, PTT #### [facility] [address] WBC (Bld) [#/Vol] 5.9 10*3/uL Normal 3.8-11.6 [facility] Comment on above: Performed By: #### P T, BMP, CBC, PTT #### [address] Creatinine [Mass/volume] in Serum or PlasmaOrdered By: Williams Shepherd on 03-26-2023 Creatinine [Mass/Vol] 0.85 mg/dL 0.60-1.20 [facility] ECG 12 lead ECGon 03-26-2023 ECG 12 lead ECG [facility] [place] [address] [place] [address] Electrocardiograph Report Signed Patient: Wilda Sen MR#: [id number] 8 : 1945 Acct:[id number] Age/Sex: 77 / F ADM Date: 03/26/23 Loc: Room: Type: [facility] Attending Dr: Williams Shepherd MD Ordering [...] Whitehead DO 03/26 1908 Normal [facility] Eosinophils Auto (Bld) [#/Vo l]Ordered By: Williams Shepehrd on 03-26-2023 Eosinophils (Bld) [#/Vol] 0.3 10*3/uL 0.0-0.45 [facility] Eosinophils/100 WBC Auto (Bl d)Ordered By: Williams Shepherd on 03-26-2023 Eosinophils/100 WBC (Bld) 4.3 % . [facility] Erythrocyte distribution wid th Auto (RBC) [Ratio]Ordered By: Williams Shepherd on 03-26-2023 Erythrocyte distribution width (RBC) [Ratio] 14.8 % 11.9-15.3 [facility] Glucose [Mass/volume] in Ser um or PlasmaOrdered By: Williams Shepherd on 03-26-2023 Glucose [Mass/Vol] 111 mg/dL 70-100 [facility] Comment on above: ADA recommended refe rence rangeRandom Glucose Reference Range is dependent on time and content of last meal. Glucose of more than 200 mg/dL in a nonstressed, ambulatory subject supports the diagnosis of Diabetes Mellitus. Hematocrit Auto (Bld) [Volum e fraction]Ordered By: Williams Shepherd on 03-26-2023 Hematocrit (Bld) [Volume fraction] 40.3 % 34.0-46.4 [facility] Hemoglobin [Mass/volume] in BloodOrdered By: Williams Shepherd on 03-26-2023 Hemoglobin (Bld) [Mass/Vol] 13.3 g/dL 11.8-15.4 [facility] INR in Platelet poor plasma by Coagulation assayOrdered By: Williams Shepherd on 03-26-2023 INR Coag (PPP) [Relative time] 2.3 {INR} [facility] Comment on above: INR Therapeutic Rang [...] (Bld) [#/Vol] 5.9 10*3/uL 3.8-11.6 [facility] Lymphocytes Auto (Bld) [#/Vo l]Ordered By: Williams Shepherd on 03-26-2023 Lymphocytes (Bld) [#/Vol] 2.2 10*3/uL 1.00-4.8 [facility] Lymphocytes/100 WBC Auto (Bl d)Ordered By: Williams Shepherd on 03-26-2023 Lymphocytes/100 WBC (Bld) 36.9 % . [facility] MCH Auto (RBC) [Entitic mass ]Ordered By: Williams Shepherd on 03-26-2023 MCH (RBC) [Entitic mass] 31.1 pg 24.7-34.3 [facility] MCHC Auto (RBC) [Mass/Vol]Or dered By: Williams Shepherd on 03-26-2023 MCHC (RBC) [Mass/Vol] 32.9 g/dL 32.0-35.0 [facility] MCV Auto (RBC) [Entitic vol] Ordered By: Williams Shepherd on 03-26-2023 MCV (RBC) [Entitic vol] 94.4 fL 80-100 [facility] Monocytes Auto (Bld) [#/Vol] Ordered By: Williams Shepherd on 03-26-2023 Monocytes (Bld) [#/Vol] 0.5 10*3/uL 0.0-0.8 [facility] Monocytes/100 WBC Auto (Bld) Ordered By: Williams Shepherd on 03-26-2023 Monocytes/100 WBC (Bld) 7.8 % . [facility] Neutrophils Auto (Bld) [#/Vo l]Ordered By: Williams Shepherd on 03-26-2023 Neutrophils (Bld) [#/Vol] 3.0 10*3/uL 1.8-7.7 [facility] Neutrophils/100 WBC Auto (Bl d)Ordered By: Williams Shepherd on 03-26-2023 Neutrophils/100 WBC (Bld) 50.2 % . [facility] No Panel InformationOrdered By: Williams Shepherd on 03-26-2023 Estimated GFR (CKD-EPI) > 60.0 mL/Min [facility] Creatinine Clearance (Chem N/A [facility] Nucleated erythrocytes [Pres ence] in Blood by Automated countOrdered By: Williams Shepherd on 03-26-2023 Nucleated RBC Auto Ql (Bld) 0.3 /100{WBC} 0-0.5 [facility] Partial Thromboplastin Timeo n 03-26-2023 aPTT Coag (Bld) [Time] 35.9 s Normal 25.1-36.5 [facility] Comment on above: Result Comment: A he matocrit value greater than 55% may lead to inaccurate results in coagulation testing. Patients having hematocrit values >55% require a special collection tube for coagulation studies. Please contact the laboratory at [phone] for redraw instructions. PERFORMED BY: [place] [address] PATHOLOGIST RN CRITICAL CARE BERNIE GRAYSON M.D. Performed By: #### P T, BMP, CBC, PTT #### [address] Platelet mean volume Auto (B ld) [Entitic vol]Ordered By: Williams Shepherd on 03-26-2023 Platelet mean volume (Bld) [Entitic vol] 7.1 fL 6.3-10.7 [facility] Platelets Auto (Bld) [#/Vol] Ordered By: Williams Shepherd on 03-26-2023 Platelets (Bld) [#/Vol] 363 10*3/uL 150-450 [facility] Potassium [Moles/volume] in Serum or PlasmaOrdered By: Williams Shepherd on 03-26-2023 Potassium [Moles/Vol] 5.0 mmol/L 3.5-5.1 [facility] Prothrombin Time INRon 03-26 INR Coag (PPP) [Relative time] 2.3 {INR} Normal [facility] Comment on above: Result Comment: INR [...] T, BMP, CBC, PTT #### [facility] [address] [id number] [facility] PT Coag (PPP) [Time] 26.6 s High 9.0-12.9 [facility] Comment on above: Result Comment: A he matocrit value greater than 55% may lead to inaccurate results in coagulation testing. Patients having hematocrit values >55% require a special collection tube for coagulation studies. Please contact the laboratory at [phone] for redraw instructions. Performed By: #### P T, BMP, CBC, PTT #### [facility] [address] [place] [address] [facility] Prothrombin time (PT)Ordered By: Williams Shepherd on 03-26-2023 PT Coag (PPP) [Time] 26.6 s 9.0-12.9 [facility] Comment on above: A hematocrit value g reater than 55% may lead to inaccurate results in coagulation testing. Patients having hematocrit values >55% require a special collection tube for coagulation studies. Please contact the laboratory at [phone] for redraw instructions. RBC Auto (Bld) [#/Vol]Ordere d By: Williams Shepherd on 03-26-2023 RBC (Bld) [#/Vol] 4.27 10*6/uL 3.60-5.00 [facility] Serum or plasma anion gap de terminationOrdered By: Williams Shepherd on 03-26-2023 Anion gap [Moles/Vol] 13.0 mmol/L 6.0-15.0 [facility] Sodium [Moles/volume] in Ser um or PlasmaOrdered By: Williams Shepherd on 03-26-2023 Sodium [Moles/Vol] 142 mmol/L 136-145 [facility] Urea nitrogen [Mass/volume] in Serum or PlasmaOrdered By: Williams Shepherd on 09-13-2023 Urea nitrogen [Mass/Vol] 12 mg/dL 02-04 [facility] WBC Auto (Bld) [#/Vol]Ordere d By: Williams Shepherd on 03-26-2023 WBC (Bld) [#/Vol] 5.9 10*3/uL 3.8-11.6 [facility] Consultation Noteon 03-17-20 Consultation Note [id number] .[id number]:127 Normal [facility] Lab Reportson 02-12-2023 Lab Reports [id number] .[id number]:127 Normal [facility] RAD - MISCon 02-12-2023 RAD - MISC [id number] .00CD:127 Normal [facility] RAD - CT Reporton 02-05-2023 RAD - CT Report [id number] .00CD:127 Normal [facility] RAD - MISCon 02-05-2023 RAD - MISC [id number] .00CD:127 [facility] Ambulatory Visit Summaryon 0 02-03-2023 Ambulatory Visit [...] AGUIAR, Williams Venegas Where: [facility] Patient Educationon 02-04-20 23 Patient Education Urology [...] these instructions at home: Medicines ? Take [id number]-[id number] and prescription medicines only as told by [...] and follow (more content not included)... Normal [facility] Urology Office/Clinic Noteon 02-03-2023 Urology Office/Clinic Note Chief Complaint 16 month follow up w/ CT scan [facility] Staff Pt is here today for 16 month follow up w/ CT scan done @[facility] on 01/15/23. CT scan shows partially [...] Contact Information Williams SHEPHERD MD, URL [address] [place] [address]- Additional Instructions: Patient Education Kidney Stones I, Fanny Bowen, personally scribed for Dr. Shepherd on 02/03/2023 12:04:03. . Documentation recorded by the scribe, Fanny Bowen, accurately reflects the services(s) I performed and decisions made by me. Authenticated by Dr. Shepherd on 02/03/2023 12:37:35. Portions of this record may have been created with voice recognition artificial intelligence software, specifically [employer] and or [employer]. Substitutions may have occurred due to the inherent limitations of voice recognition and artificial intelligence software. Problem List/Past Medical History Ongoing Abdominal pain Anticoagulated Anxiety BMI 27.0-27.9,adult Depression Diabetes Former smoker Frequent urination Heart murmur History of uterine cancer Hx of fci use of blood thin (more content not included)... Normal [facility] Comment on above: Result Comment: Elec tronically Signed By: Williams SHEPHERD MD\.br\Date and Time Signed: 02/03/23 12:39 EDT\.br\Electronically Co-Signed By: Fanny Bowen\.br\Date and Time Co-Signed: 02/03/23 12:04 EDT PROTIMEon 12-02-2022 INR Coag (PPP) [Relative time] 3.62 {INR} Normal [facility] Comment on above: Performed By: #### P T #### [facility] [address] [place] [address] Dr. Tg Fierro INR GUIDELINES SEE BELOW Normal [facility] Comment on above: Result Comment: [place]UR[place] RED INR: 2.0 - 3.0 CONDITIONS NOT LISTED BELOW 2.5 - 3.5 FOR PROSTHETIC HEART VALVE REPLACEMENT 2.5 - 3.5 RECURRENT THROMBOSIS Performed By: #### P T #### [facility] [address] [place] [address] Dr. Tg Fierro PT Coag (PPP) [Time] 35.7 s Critically high 9.0-11.6 [facility] Comment on above: Performed By: #### P T #### [facility] [address] [place] [address] Dr. gT Fierro PROTIMEon 11-11-2022 INR Coag (PPP) [Relative time] 1.90 {INR} Normal [facility] Comment on above: Performed By: #### P T #### [facility] [address] [place] [address] Dr. Tg Fierro INR GUIDELINES SEE BELOW Normal [facility] Comment on above: Result Comment: LAURENCE RED INR: 2.0 - 3.0 CONDITIONS NOT LISTED BELOW 2.5 - 3.5 FOR PROSTHETIC HEART VALVE REPLACEMENT 2.5 - 3.5 RECURRENT THROMBOSIS Performed By: #### P T #### [facility] [address] [place] [address] Dr. Tg Fierro PT Coag (PPP) [Time] 19.4 s Critically high 9.0-11.6 [facility] Comment on above: Performed By: #### P T #### [facility] [address] [place] [address] Dr. Tg Fierro CBC AUTO DIFFon 10-25-2022 BASO # 0.0 103/ul Normal 0.0-0.1 [facility] Comment on above: Performed By: #### P T #### [facility] [address] [place] [address] Dr. Tg Fierro Basophils/100 WBC (Bld) 0.5 % Normal 0.2-2.0 [facility] Comment on above: Performed By: #### P T #### [facility] [address] [place] [address] Dr. Tg Fierro EO # 0.2 103/ul Normal 0.0-0.7 [facility] Comment on above: Performed By: #### P T #### [facility] [address] [place] [address] Dr. Tg Fierro Eosinophils/100 WBC (Bld) 2.7 % Normal 0.9-7.0 [facility] Comment on above: Performed By: #### P T #### [facility] [address] [place] [address] Dr. Tg Fierro Erythrocyte distribution width (RBC) [Ratio] 13.4 % Normal 11.0-15.0 [facility] Comment on above: Performed By: #### P T #### [facility] [address] [place] [address] Dr. Tg Fierro Hematocrit (Bld) [Volume fraction] 40.7 % Normal 36.0-48.0 [facility] Comment on above: Performed By: #### P T #### [facility] [address] [place] [address] Dr. Tg Fierro Hemoglobin (Bld) [Mass/Vol] 13.2 g/dL Normal 12.0-16.0 [facility] Comment on above: Performed By: #### P T #### [facility] [address] [place] [address] Dr. Tg Fierro IG # 0.03 10e3/ul Normal 0.00-0.03 [facility] Comment on above: Performed By: #### P T #### [facility] [address] [place] [address] Dr. Tg Fierro IG % 0.5 % Normal 0.0-0.5 [facility] Comment on above: Performed By: #### P T #### [facility] [address] [place] [address] Dr. Tg Fierro LYMPH # 2.1 103/ul Normal 1.2-3.8 [facility] Comment on above: Performed By: #### P T #### [facility] [address] [place] [address] Dr. Tg Fierro Lymphocytes/100 WBC (Bld) 34.9 % Normal 20.5-60.0 [facility] Comment on above: Performed By: #### P T #### [facility] [address] [place] [address] Dr. Tg Fierro MANUAL DIFF REQ NO Normal [facility] Comment on above: Performed By: #### P T #### [facility] [address] [place] [address] Dr. Tg Fierro MCH (RBC) [Entitic mass] 30.5 pg Normal 26.7-34.0 [facility] Comment on above: Performed By: #### P T #### [facility] [address] [place] [address] Dr. Tg Fierro MCHC (RBC) [Mass/Vol] 32.4 g/dL Normal 29.9-35.2 [facility] Comment on above: Performed By: #### P T #### [facility] [address] [place] [address] Dr. Tg Fierro MCV (RBC) [Entitic vol] 94.0 fL Normal 81.0-99.0 [facility] Comment on above: Performed By: #### P T #### [facility] [address] [place] [address] Dr. Tg Fierro MONO # 0.4 103/ul Normal 0.3-0.8 [facility] Comment on above: Performed By: #### P T #### [facility] [address] [place] [address] Dr. Tg Fierro Monocytes/100 WBC (Bld) 7.1 % Normal 1.7-12.0 [facility] Comment on above: Performed By: #### P T #### [facility] [address] [place] [address] Dr. Tg Fierro NEUT # 3.2 103/ul Normal 1.4-6.5 [facility] Comment on above: Performed By: #### P T #### [facility] [address] [place] [address] Dr. Tg Fierro Neutrophils/100 WBC (Bld) 54.3 % Normal 43.0-75.0 [facility] Comment on above: Performed By: #### P T #### [facility] [address] [place] [address] Dr. Tg Fierro Platelet mean volume (Bld) [Entitic vol] 8.7 fL Critically low 9.5-13.5 [facility] Comment on above: Performed By: #### P T #### [facility] [address] [place] [address] Dr. Tg Fierro PLT 295 103/ul Normal 150-450 [facility] Comment on above: Performed By: #### P T #### [facility] [address] [place] [address] Dr. Tg Fierro RBC 4.33 106/ul Normal 4.20-5.40 [facility] Comment on above: Performed By: #### P T #### [facility] [address] [place] [address] Dr. Tg Fierro WBC 5.9 103/ul Normal 4.0-11.0 [facility] Comment on above: Performed By: #### P T #### [facility] [address] [place] [address] Dr. Tg Fierro PROF 14(COMP METB)on 023 Albumin [Mass/Vol] 3.8 g/dL Normal 3.4-5.0 [facility] Comment on above: Performed By: #### C MP #### [facility] [address] [place] [address] Dr. Tg Fierro Albumin/Globulin [Mass ratio] 1.2 {ratio} Normal [facility] Comment on above: Performed By: #### C MP #### [facility] [address] [address] [address] Tg Fierro ALP [Catalytic activity/Vol] 49 U/L Normal 46-116 [facility] Comment on above: Performed By: #### C MP #### [facility] [address] [address] [address] Tg Fierro ALT [Catalytic activity/Vol] 21 U/L Normal 14-59 [facility] Comment on above: Performed By: #### C MP #### [facility] [address] [address] [address] Tg Fierro Anion gap [Moles/Vol] 13.3 mmol/L Normal [facility] Comment on above: Performed By: #### C MP #### [facility] [address] [place] [address] Dr. Tg Fierro AST [Catalytic activity/Vol] 14 U/L Critically low 15-37 [facility] Comment on above: Performed By: #### C MP #### [facility] [address] [address] [address] Tg Fierro Bilirubin [Mass/Vol] 0.5 mg/dL Normal 0.2-1.0 [facility] Comment on above: Performed By: #### C MP #### [facility] [address] [place] [address] Dr. Tg Fierro Calcium [Mass/Vol] 9.5 mg/dL Normal 8.5-10.1 [facility] Comment on above: Performed By: #### C MP #### [facility] [address] [address] [address] Tg Fierro Chloride [Moles/Vol] 104 mmol/L Normal 98-107 [facility] Comment on above: Performed By: #### C MP #### [facility] [address] [address] [address] Tg Fierro CO2 [Moles/Vol] 29.3 mmol/L Normal 21.0-32.0 [facility] Comment on above: Performed By: #### C MP #### [facility] [address] [address] [address] Tg Fierro Creatinine [Mass/Vol] 0.93 mg/dL Normal 0.55-1.02 [facility] Comment on above: Performed By: #### C MP #### [facility] [address] [address] [address] Tg Fierro EGFR-AF DJIBOUTIAN >60 Normal >=60 [facility] Comment on above: Performed By: #### C MP #### [facility] [address] [address] [address] Tg Fierro EGFR-NON AF DJIBOUTIAN 59 mL/min/1.73m2 Critically low >=60 [facility] Comment on above: Performed By: #### C MP #### [facility] [address] [address] [address] Tg Fierro Globulin (S) [Mass/Vol] 3.2 g/dL Normal [facility] Comment on above: Performed By: #### C MP #### [facility] [address] [place] [address] Dr. Tg Fierro Glucose [Mass/Vol] 186 mg/dL Critically high 74-[address] [facility] Comment on above: Performed By: #### C MP #### [facility] [address] [place] [address] Dr. Tg Fierro Potassium [Moles/Vol] 4.6 mmol/L Normal 3.5-5.1 [facility] Comment on above: Performed By: #### C MP #### [facility] [address] [address] [address] Tg Fierro Protein [Mass/Vol] 7.0 g/dL Normal 6.4-8.2 [facility] Comment on above: Performed By: #### C MP #### [facility] [address] [place] [address] Dr. Tg Fierro Sodium [Moles/Vol] 142 mmol/L Normal 136-145 [facility] Comment on above: Performed By: #### C MP #### [facility] [address] [address] [address] Tg Fierro Urea nitrogen [Mass/Vol] 15.0 mg/dL Normal 7.0-18.0 [facility] Comment on above: Performed By: #### C MP #### [facility] [address] [place] [address] Dr. Tg Fierro Urea nitrogen/Creatinine [Mass ratio] 16.1 mg/mg Normal [facility] Comment on above: Performed By: #### C MP #### [facility] [address] [place] [address] Dr. Tg Fierro SED RATE WESTERGRENon 2022 SED RATE 9 mm/hr Normal <=30 [facility] Comment on above: Performed By: #### C MP #### [facility] [address] [place] [address] Dr. Tg Fierro PROTIMEon 10-14-2022 INR Coag (PPP) [Relative time] 1.94 {INR} Normal [facility] Comment on above: Performed By: #### P T #### [facility] [address] [place] [address] Dr. Tg Fierro INR GUIDELINES SEE BELOW Normal [facility] Comment on above: Result Comment: LAURENCE RED INR: 2.0 - 3.0 CONDITIONS NOT LISTED BELOW 2.5 - 3.5 FOR PROSTHETIC HEART VALVE REPLACEMENT 2.5 - 3.5 RECURRENT THROMBOSIS Performed By: #### P T #### [facility] [address] [place] [address] Dr. Tg Fierro PT Coag (PPP) [Time] 19.8 s Critically high 9.0-11.6 [facility] Comment on above: Performed By: #### P T #### [facility] [address] [place] [address] Dr. Tg Fierro CBC AUTO DIFFon 09-24-2022 BASO # 0.1 103/ul Normal 0.0-0.1 [facility] Comment on above: Performed By: #### P T #### [facility] [address] [place] [address] Dr. Tg Fierro Basophils/100 WBC (Bld) 0.7 % Normal 0.2-2.0 [facility] Comment on above: Performed By: #### P T #### [facility] [address] [place] [address] Dr. Tg Fierro EO # 0.3 103/ul Normal 0.0-0.7 [facility] Comment on above: Performed By: #### P T #### [facility] [address] [place] [address] Dr. Tg Fierro Eosinophils/100 WBC (Bld) 3.6 % Normal 0.9-7.0 [facility] Comment on above: Performed By: #### P T #### [facility] [address] [place] [address] Dr. Tg Fierro Erythrocyte distribution width (RBC) [Ratio] 13.4 % Normal 11.0-15.0 [facility] Comment on above: Performed By: #### P T #### [facility] [address] [place] [address] Dr. Tg Fierro Hematocrit (Bld) [Volume fraction] 38.4 % Normal 36.0-48.0 [facility] Comment on above: Performed By: #### P T #### [facility] [address] [place] [address] Dr. Tg Fierro Hemoglobin (Bld) [Mass/Vol] 12.7 g/dL Normal 12.0-16.0 [facility] Comment on above: Performed By: #### P T #### [facility] [address] [place] [address] Dr. Tg Fierro IG # 0.05 10e3/ul Critically high 0.00-0.03 [facility] Comment on above: Performed By: #### P T #### [facility] [address] [place] [address] Dr. Tg Fierro IG % 0.7 % Critically high 0.0-0.5 [facility] Comment on above: Performed By: #### P T #### [facility] [address] [place] [address] Dr. Tg Fierro LYMPH # 2.6 103/ul Normal 1.2-3.8 [facility] Comment on above: Performed By: #### P T #### [facility] [address] [place] [address] Dr. Tg Fierro Lymphocytes/100 WBC (Bld) 34.2 % Normal 20.5-60.0 [facility] Comment on above: Performed By: #### P T #### [facility] [address] [place] [address] Dr. Tg Fierro MANUAL DIFF REQ NO Normal [facility] Comment on above: Performed By: #### P T #### [facility] [address] [place] [address] Dr. Tg Fierro MCH (RBC) [Entitic mass] 31.2 pg Normal 26.7-34.0 [facility] Comment on above: Performed By: #### P T #### [facility] [address] [place] [address] Dr. Tg Fierro MCHC (RBC) [Mass/Vol] 33.1 g/dL Normal 29.9-35.2 [facility] Comment on above: Performed By: #### P T #### [facility] [address] [place] [address] Dr. Tg Fierro MCV (RBC) [Entitic vol] 94.3 fL Normal 81.0-99.0 [facility] Comment on above: Performed By: #### P T #### [facility] [address] [place] [address] Dr. Tg Fierro MONO # 0.6 103/ul Normal 0.3-0.8 [facility] Comment on above: Performed By: #### P T #### [facility] [address] [place] [address] Dr. Tg Fierro Monocytes/100 WBC (Bld) 8.1 % Normal 1.7-12.0 [facility] Comment on above: Performed By: #### P T #### [facility] [address] [place] [address] Dr. Tg Fierro NEUT # 4.1 103/ul Normal 1.4-6.5 [facility] Comment on above: Performed By: #### P T #### [facility] [address] [address] [address] Tg Fierro Neutrophils/100 WBC (Bld) 52.7 % Normal 43.0-75.0 [facility] Comment on above: Performed By: #### P T #### [facility] [address] [address] [address] Tg Fierro Platelet mean volume (Bld) [Entitic vol] 8.7 fL Critically low 9.5-13.5 [facility] Comment on above: Performed By: #### P T #### [facility] [address] [address] [address] Tg Fierro PLT 278 103/ul Normal 150-450 [facility] Comment on above: Performed By: #### P T #### [facility] [address] [place] [address] Dr. Tg Fierro RBC 4.07 106/ul Critically low 4.20-5.40 [facility] Comment on above: Performed By: #### P T #### [facility] [address] [address] [address] Tg Fierro WBC 7.7 103/ul Normal 4.0-11.0 [facility] Comment on above: Performed By: #### P T #### [facility] [address] [place] [address] Dr. Tg Fierro PROF 14(COMP METB)on 023 Albumin [Mass/Vol] 3.9 g/dL Normal 3.4-5.0 [facility] Comment on above: Performed By: #### C MP #### [facility] [address] [address] [address] Tg Fierro Albumin/Globulin [Mass ratio] 1.4 {ratio} Normal [facility] Comment on above: Performed By: #### C MP #### [facility] [address] [address] [address] Tg Fierro ALP [Catalytic activity/Vol] 59 U/L Normal 46-116 [facility] Comment on above: Performed By: #### C MP #### [facility] [address] [address] [address] Tg Fierro ALT [Catalytic activity/Vol] 21 U/L Normal 14-59 [facility] Comment on above: Performed By: #### C MP #### [facility] [address] [address] [address] Tg Fierro Anion gap [Moles/Vol] 10.8 mmol/L Normal [facility] Comment on above: Performed By: #### C MP #### [facility] [address] [address] [address] Tg Fierro AST [Catalytic activity/Vol] 9 U/L Critically low 15-37 [facility] Comment on above: Performed By: #### C MP #### [facility] [address] [address] [address] Tg Fierro Bilirubin [Mass/Vol] 0.3 mg/dL Normal 0.2-1.0 [facility] Comment on above: Performed By: #### C MP #### [facility] [address] [address] [address] Tg Fierro Calcium [Mass/Vol] 9.1 mg/dL Normal 8.5-10.1 [facility] Comment on above: Performed By: #### C MP #### [facility] [address] [address] [address] Tg Fierro Chloride [Moles/Vol] 104 mmol/L Normal 98-107 [facility] Comment on above: Performed By: #### C MP #### [facility] [address] [address] [address] Tg Fierro CO2 [Moles/Vol] 28.3 mmol/L Normal 21.0-32.0 [facility] Comment on above: Performed By: #### C MP #### [facility] [address] [address] [address] Tg Fierro Creatinine [Mass/Vol] 0.86 mg/dL Normal 0.55-1.02 [facility] Comment on above: Performed By: #### C MP #### [facility] [address] [address] [address] Tg Fierro EGFR-AF DJIBOUTIAN >60 Normal >=60 [facility] Comment on above: Performed By: #### C MP #### [facility] [address] [address] [address] Tg Fierro EGFR-NON AF DJIBOUTIAN >60 Normal >=60 [facility] Comment on above: Performed By: #### C MP #### [facility] [address] [address] [address] Tg Fierro Globulin (S) [Mass/Vol] 2.7 g/dL Normal [facility] Comment on above: Performed By: #### C MP #### [facility] [address] [address] [address] Tg Fierro Glucose [Mass/Vol] 120 mg/dL Critically high 74-[address] [facility] Comment on above: Performed By: #### C MP #### [facility] [address] [address] [address] Tg Fierro Potassium [Moles/Vol] 4.1 mmol/L Normal 3.5-5.1 [facility] Comment on above: Performed By: #### C MP #### [facility] [address] [address] [address] Tg Fierro Protein [Mass/Vol] 6.6 g/dL Normal 6.4-8.2 [facility] Comment on above: Performed By: #### C MP #### [facility] [address] [address] [address] Tg Fierro Sodium [Moles/Vol] 139 mmol/L Normal 136-145 [facility] Comment on above: Performed By: #### C MP #### [facility] [address] [address] [address] Tg Fierro Urea nitrogen [Mass/Vol] 13.0 mg/dL Normal 7.0-18.0 [facility] Comment on above: Performed By: #### C MP #### [facility] [address] [address] [address] Tg Fierro Urea nitrogen/Creatinine [Mass ratio] 15.1 mg/mg Normal [facility] Comment on above: Performed By: #### C MP #### [facility] [address] [place] [address] Dr. Tg Fierro PROTIMEon 09-24-2022 INR Coag (PPP) [Relative time] 1.35 {INR} Normal [facility] Comment on above: Performed By: #### P T #### [facility] [address] [place] [address] Dr. Tg Fierro INR GUIDELINES SEE BELOW Normal [facility] Comment on above: Result Comment: LAURENCE RED INR: 2.0 - 3.0 CONDITIONS NOT LISTED BELOW 2.5 - 3.5 FOR PROSTHETIC HEART VALVE REPLACEMENT 2.5 - 3.5 RECURRENT THROMBOSIS Performed By: #### P T #### [facility] [address] [place] [address] Dr. Tg Fierro PT Coag (PPP) [Time] 14.1 s Critically high 9.0-11.6 [facility] Comment on above: Performed By: #### P T #### [facility] [address] [place] [address] Dr. Tg Fierro SED RATE [facility] 2022 SED RATE 8 mm/hr Normal <=30 [facility] Comment on above: Performed By: #### C MP #### [facility] [address] [place] [address] Dr. Tg Fierro PROTIMEon 09-09-2022 INR Coag (PPP) [Relative time] 1.23 {INR} Normal [facility] Comment on above: Performed By: #### P T #### [facility] [address] [place] [address] Dr. Tg Fierro INR GUIDELINES SEE BELOW Normal [facility] Comment on above: Result Comment: LAURENCE RED INR: 2.0 - 3.0 CONDITIONS NOT LISTED BELOW 2.5 - 3.5 FOR PROSTHETIC HEART VALVE REPLACEMENT 2.5 - 3.5 RECURRENT THROMBOSIS Performed By: #### P T #### [facility] [address] [place] [address] Dr. Tg Fierro PT Coag (PPP) [Time] 12.9 s Critically high 9.0-11.6 [facility] Comment on above: Performed By: #### P T #### [facility] [id number] Tg Fierro ECHOCARDIO M/2D COMPLETEon 0 09-02-2022 ECHOCARDIO M/2D COMPLETE Patient: WILDA SEN Exam Date: 09/02/2022 : 1945 Gender:F Ordering : DR JAYME PEREZ . Admission #: [id number] Family : Order #: [id number] CLICK HERE TO VIEW EXAM ECHOCARDIOGRAM REPORT [...] Bender M.D. on 09/03/2022 at 17:25 Normal [facility] GLYCOHEMOGLOBIN A1Con 2022 ADA RECOMMENDATION SEE BELOW Normal [facility] Comment on above: Result Comment: ADA RECOMMENDED LIMIT 4.0 - 6.0 ADA THERAPEUTIC TARGET < 7.0 ACTION SUGGESTED > 7.0 Performed By: #### A 1C #### [facility] [address] [place] [address] Dr. Tg Fierro Glucose [Mass/Vol] 148 mg/dL Normal [facility] Comment on above: Performed By: #### A 1C #### [facility] [address] [place] [address] Dr. Tg Fierro HbA1c (Bld) [Mass fraction] 6.8 % Critically high 4.5-6.2 [facility] Comment on above: Performed By: #### A 1C #### [facility] [address] [place] [address] Dr. Tg Fierro CBC AUTO DIFFon 08-05-2022 BASO # 0.1 103/ul Normal 0.0-0.1 [facility] Comment on above: Performed By: #### C BC #### [facility] [address] [place] [address] Dr. Tg Fierro Basophils/100 WBC (Bld) 0.8 % Normal 0.2-2.0 [facility] Comment on above: Performed By: #### C BC #### [facility] [address] [place] [address] Dr. Tg Fierro EO # 0.5 103/ul Normal 0.0-0.7 [facility] Comment on above: Performed By: #### C BC #### [facility] [address] [place] [address] Dr. Tg Fierro Eosinophils/100 WBC (Bld) 7.3 % Critically high 0.9-7.0 [facility] Comment on above: Performed By: #### C BC #### [facility] [address] [place] [address] Dr. Tg Fierro Erythrocyte distribution width (RBC) [Ratio] 13.4 % Normal 11.0-15.0 [facility] Comment on above: Performed By: #### C BC #### [facility] [address] [place] [address] Dr. Tg Fierro Hematocrit (Bld) [Volume fraction] 37.1 % Normal 36.0-48.0 [facility] Comment on above: Performed By: #### C BC #### [facility] [address] [place] [address] Dr. Tg Fierro Hemoglobin (Bld) [Mass/Vol] 12.9 g/dL Normal 12.0-16.0 [facility] Comment on above: Performed By: #### C BC #### [facility] [address] [place] [address] Dr. Tg Fierro IG # 0.03 10e3/ul Normal 0.00-0.03 [facility] Comment on above: Performed By: #### C BC #### [facility] [address] [place] [address] Dr. Tg Fierro IG % 0.5 % Normal 0.0-0.5 [facility] Comment on above: Performed By: #### C BC #### [facility] [address] [place] [address] Dr. Tg Fierro LYMPH # 2.3 103/ul Normal 1.2-3.8 [facility] Comment on above: Performed By: #### C BC #### [facility] [address] [place] [address] Dr. Tg Fierro Lymphocytes/100 WBC (Bld) 34.9 % Normal 20.5-60.0 [facility] Comment on above: Performed By: #### C BC #### [facility] [address] [place] [address] Dr. Tg Fierro MANUAL DIFF REQ NO Normal [facility] Comment on above: Performed By: #### C BC #### [facility] [address] [address] [address] Tg Fierro MCH (RBC) [Entitic mass] 31.0 pg Normal 26.7-34.0 [facility] Comment on above: Performed By: #### C BC #### [facility] [address] [place] [address] Dr. Tg Fierro MCHC (RBC) [Mass/Vol] 34.8 g/dL Normal 29.9-35.2 [facility] Comment on above: Performed By: #### C BC #### [facility] [address] [place] [address] Dr. Tg Fierro MCV (RBC) [Entitic vol] 89.2 fL Normal 81.0-99.0 [facility] Comment on above: Performed By: #### C BC #### [facility] [address] [place] [address] Dr. Tg Fierro MONO # 0.4 103/ul Normal 0.3-0.8 [facility] Comment on above: Performed By: #### C BC #### [facility] [address] [place] [address] Dr. Tg Fierro Monocytes/100 WBC (Bld) 6.1 % Normal 1.7-12.0 [facility] Comment on above: Performed By: #### C BC #### [facility] [address] [place] [address] Dr. Tg Fierro NEUT # 3.3 103/ul Normal 1.4-6.5 [facility] Comment on above: Performed By: #### C BC #### [facility] [address] [place] [address] Dr. Tg Fierro Neutrophils/100 WBC (Bld) 50.4 % Normal 43.0-75.0 [facility] Comment on above: Performed By: #### C BC #### [facility] [address] [place] [address] Dr. Tg Fierro Platelet mean volume (Bld) [Entitic vol] 8.6 fL Critically low 9.5-13.5 [facility] Comment on above: Performed By: #### C BC #### [facility] [address] [place] [address] Dr. Tg Fierro PLT 336 103/ul Normal 150-450 [facility] Comment on above: Performed By: #### C BC #### [facility] [address] [place] [address] Dr. Tg Fierro RBC 4.16 106/ul Critically low 4.20-5.40 [facility] Comment on above: Performed By: #### C BC #### [facility] [address] [place] [address] Dr. Tg Fierro WBC 6.4 103/ul Normal 4.0-11.0 [facility] Comment on above: Performed By: #### C BC #### [facility] [address] [place] [address] Dr. Tg Fierro PROF 14(COMP METB)on 023 Albumin [Mass/Vol] 3.9 g/dL Normal 3.4-5.0 [facility] Comment on above: Performed By: #### P T #### [facility] [address] [place] [address] Dr. Tg Fierro Albumin/Globulin [Mass ratio] 1.3 {ratio} Normal [facility] Comment on above: Performed By: #### P T #### [facility] [address] [place] [address] Dr. Tg Fierro ALP [Catalytic activity/Vol] 60 U/L Normal 46-116 [facility] Comment on above: Performed By: #### P T #### [facility] [address] [place] [address] Dr. Tg Fierro ALT [Catalytic activity/Vol] 21 U/L Normal 14-59 [facility] Comment on above: Performed By: #### P T #### [facility] [address] [place] [address] Dr. Tg Fierro Anion gap [Moles/Vol] 15.2 mmol/L Normal [facility] Comment on above: Performed By: #### P T #### [facility] [address] [place] [address] Dr. Tg Fierro AST [Catalytic activity/Vol] 14 U/L Critically low 15-37 [facility] Comment on above: Performed By: #### P T #### [facility] [address] [address] [address] Tg Fierro Bilirubin [Mass/Vol] 0.4 mg/dL Normal 0.2-1.0 [facility] Comment on above: Performed By: #### P T #### [facility] [address] [address] [address] Tg Fierro Calcium [Mass/Vol] 9.3 mg/dL Normal 8.5-10.1 [facility] Comment on above: Performed By: #### P T #### [facility] [address] [place] [address] Dr. Tg Fierro Chloride [Moles/Vol] 102 mmol/L Normal 98-107 [facility] Comment on above: Performed By: #### P T #### [facility] [address] [address] [address] Tg Fierro CO2 [Moles/Vol] 26.8 mmol/L Normal 21.0-32.0 [facility] Comment on above: Performed By: #### P T #### [facility] [address] [place] [address] Dr. Tg Fierro Creatinine [Mass/Vol] 0.74 mg/dL Normal 0.55-1.02 [facility] Comment on above: Performed By: #### P T #### [facility] [address] [place] [address] Dr. Tg Fierro EGFR-AF DJIBOUTIAN >60 Normal >=60 [facility] Comment on above: Performed By: #### P T #### [facility] [address] [address] [address] Tg Fierro EGFR-NON AF DJIBOUTIAN >60 Normal >=60 [facility] Comment on above: Performed By: #### P T #### [facility] [address] [place] [address] Dr. Tg Fierro Globulin (S) [Mass/Vol] 3.1 g/dL Normal [facility] Comment on above: Performed By: #### P T #### [facility] [address] [address] [address] Tg Fierro Glucose [Mass/Vol] 148 mg/dL Critically high 74-106 [facility] Comment on above: Performed By: #### P T #### [facility] [address] [address] [address] Tg Fierro Potassium [Moles/Vol] 4.0 mmol/L Normal 3.5-5.1 [facility] Comment on above: Performed By: #### P T #### [facility] [address] [address] [address] Tg Fierro Protein [Mass/Vol] 7.0 g/dL Normal 6.4-8.2 [facility] Comment on above: Performed By: #### P T #### [facility] [address] [place] [address] Dr. Tg Fierro Sodium [Moles/Vol] 140 mmol/L Normal 136-145 [facility] Comment on above: Performed By: #### P T #### [facility] [address] [place] [address] Dr. Tg Fierro Urea nitrogen [Mass/Vol] 12.0 mg/dL Normal 7.0-18.0 [facility] Comment on above: Performed By: #### P T #### [facility] [address] [address] [address] Tg Fierro Urea nitrogen/Creatinine [Mass ratio] 16.2 mg/mg Normal [facility] Comment on above: Performed By: #### P T #### [facility] [address] [address] [address] Tg Fierro SED RATE WESTERGRENon 2022 SED RATE 30 mm/hr Normal <=30 [facility] Comment on above: Performed By: #### S EDR #### [facility] [address] [address] [address] Tg Fierro CBC AUTO DIFFon 04-15-2022 BASO # 0.1 103/ul Normal 0.0-0.1 [facility] Comment on above: Performed By: #### C BC #### [facility] [address] [address] [address] Tg Fierro Basophils/100 WBC (Bld) 0.6 % Normal 0.2-2.0 [facility] Comment on above: Performed By: #### C BC #### [facility] [address] [address] [address] Tg Fierro EO # 0.2 103/ul Normal 0.0-0.7 [facility] Comment on above: Performed By: #### C BC #### [facility] [address] [address] [address] Tg Fierro Eosinophils/100 WBC (Bld) 3.1 % Normal 0.9-7.0 [facility] Comment on above: Performed By: #### C BC #### [facility] [address] [place] [address] Dr. Tg Fierro Erythrocyte distribution width (RBC) [Ratio] 13.6 % Normal 11.0-15.0 [facility] Comment on above: Performed By: #### C BC #### [facility] [address] [address] [address] Tg Fierro Hematocrit (Bld) [Volume fraction] 42.3 % Normal 36.0-48.0 [facility] Comment on above: Performed By: #### C BC #### [facility] [address] [address] [address] Tg Fierro Hemoglobin (Bld) [Mass/Vol] 13.2 g/dL Normal 12.0-16.0 [facility] Comment on above: Performed By: #### C BC #### [facility] [address] [address] [address] Tg Fierro IG # 0.04 10e3/ul Critically high 0.00-0.03 [facility] Comment on above: Performed By: #### C BC #### [facility] [address] [address] [address] Tg Fierro IG % 0.5 % Normal 0.0-0.5 [facility] Comment on above: Performed By: #### C BC #### [facility] [address] [place] [address] Dr. Tg Fierro LYMPH # 2.5 103/ul Normal 1.2-3.8 [facility] Comment on above: Performed By: #### C BC #### [facility] [address] [place] [address] Dr. Tg Fierro Lymphocytes/100 WBC (Bld) 31.6 % Normal 20.5-60.0 [facility] Comment on above: Performed By: #### C BC #### [facility] [address] [place] [address] Dr. Tg Fierro MANUAL DIFF REQ NO Normal [facility] Comment on above: Performed By: #### C BC #### [facility] [address] [place] [address] Dr. Tg Fierro MCH (RBC) [Entitic mass] 30.3 pg Normal 26.7-34.0 [facility] Comment on above: Performed By: #### C BC #### [facility] [address] [place] [address] Dr. Tg Fierro MCHC (RBC) [Mass/Vol] 31.2 g/dL Normal 29.9-35.2 [facility] Comment on above: Performed By: #### C BC #### [facility] [address] [place] [address] Dr. Tg Fierro MCV (RBC) [Entitic vol] 97.0 fL Normal 81.0-99.0 [facility] Comment on above: Performed By: #### C BC #### [facility] [address] [place] [address] Dr. Tg Fierro MONO # 0.5 103/ul Normal 0.3-0.8 [facility] Comment on above: Performed By: #### C BC #### [facility] [address] [place] [address] Dr. Tg Fierro Monocytes/100 WBC (Bld) 6.3 % Normal 1.7-12.0 [facility] Comment on above: Performed By: #### C BC #### [facility] [address] [place] [address] Dr. Tg Fierro NEUT # 4.5 103/ul Normal 1.4-6.5 [facility] Comment on above: Performed By: #### C BC #### [facility] [address] [place] [address] Dr. Tg Fierro Neutrophils/100 WBC (Bld) 57.9 % Normal 43.0-75.0 [facility] Comment on above: Performed By: #### C BC #### [facility] [address] [place] [address] Dr. Tg Fierro Platelet mean volume (Bld) [Entitic vol] 8.6 fL Critically low 9.5-13.5 [facility] Comment on above: Performed By: #### C BC #### [facility] [address] [place] [address] Dr. Tg Fierro PLT 295 103/ul Normal 150-450 [facility] Comment on above: Performed By: #### C BC #### [facility] [address] [place] [address] Dr. Tg Fierro RBC 4.36 106/ul Normal 4.20-5.40 [facility] Comment on above: Performed By: #### C BC #### [facility] [address] [place] [address] Dr. Tg Fierro WBC 7.8 103/ul Normal 4.0-11.0 [facility] Comment on above: Performed By: #### C BC #### [facility] [address] [place] [address] Dr. Tg Fierro PROF 14(COMP METB)on 022 Albumin [Mass/Vol] 4.5 g/dL Normal 3.4-5.0 [facility] Comment on above: Performed By: #### C MP #### [facility] [address] [place] [address] Dr. Tg Fierro Albumin/Globulin [Mass ratio] 1.5 {ratio} Normal [facility] Comment on above: Performed By: #### C MP #### [facility] [address] [address] [address] Tg Fierro ALP [Catalytic activity/Vol] 62 U/L Normal 46-116 [facility] Comment on above: Performed By: #### C MP #### [facility] [address] [place] [address] Dr. Tg Fierro ALT [Catalytic activity/Vol] 25 U/L Normal 14-59 [facility] Comment on above: Performed By: #### C MP #### [facility] [address] [address] [address] Tg Fierro Anion gap [Moles/Vol] 10.6 mmol/L Normal [facility] Comment on above: Performed By: #### C MP #### [facility] [address] [place] [address] Dr. Tg Fierro AST [Catalytic activity/Vol] 12 U/L Critically low 15-37 [facility] Comment on above: Performed By: #### C MP #### [facility] [address] [place] [address] Dr. Tg Fierro Bilirubin [Mass/Vol] 0.5 mg/dL Normal 0.2-1.0 [facility] Comment on above: Performed By: #### C MP #### [facility] [address] [place] [address] Dr. Tg Fierro Calcium [Mass/Vol] 9.8 mg/dL Normal 8.5-10.1 [facility] Comment on above: Performed By: #### C MP #### [facility] [address] [place] [address] Dr. Tg Fierro Chloride [Moles/Vol] 102 mmol/L Normal 98-107 [facility] Comment on above: Performed By: #### C MP #### [facility] [address] [place] [address] Dr. Tg Fierro CO2 [Moles/Vol] 31.8 mmol/L Normal 21.0-32.0 [facility] Comment on above: Performed By: #### C MP #### [facility] [address] [place] [address] Dr. Tg Fierro Creatinine [Mass/Vol] 0.88 mg/dL Normal 0.55-1.02 [facility] Comment on above: Performed By: #### C MP #### [facility] [address] [address] [address] Tg Fierro EGFR-AF DJIBOUTIAN >60 Normal >=60 [facility] Comment on above: Performed By: #### C MP #### [facility] [address] [address] [address] Tg Fierro EGFR-NON AF DJIBOUTIAN >60 Normal >=60 [facility] Comment on above: Performed By: #### C MP #### [facility] [address] [address] [address] Tg Fierro Globulin (S) [Mass/Vol] 3.1 g/dL Normal [facility] Comment on above: Performed By: #### C MP #### [facility] [address] [address] [address] Tg Fierro Glucose [Mass/Vol] 187 mg/dL Critically high 74-106 [facility] Comment on above: Performed By: #### C MP #### [facility] [address] [address] [address] Tg Fierro Potassium [Moles/Vol] 4.4 mmol/L Normal 3.5-5.1 [facility] Comment on above: Performed By: #### C MP #### [facility] [address] [address] [address] Tg Fierro Protein [Mass/Vol] 7.6 g/dL Normal 6.4-8.2 [facility] Comment on above: Performed By: #### C MP #### [facility] [address] [address] [address] Tg Fierro Sodium [Moles/Vol] 140 mmol/L Normal 136-145 [facility] Comment on above: Performed By: #### C MP #### [facility] [address] [address] [address] Tg Fierro Urea nitrogen [Mass/Vol] 14.0 mg/dL Normal 7.0-18.0 [facility] Comment on above: Performed By: #### C MP #### [facility] [address] [place] [address] Dr. Tg Fierro Urea nitrogen/Creatinine [Mass ratio] 15.9 mg/mg Normal [facility] Comment on above: Performed By: #### C MP #### [facility] [address] [place] [address] Dr. Tg Fierro SED RATE WESTERGRENon 2021 SED RATE 5 mm/hr Normal <=30 [facility] Comment on above: Performed By: #### S EDR #### [facility] [address] [place] [address] Dr. Tg Fierro CBC AUTO DIFFon 02-07-2022 BASO # 0.0 103/ul Normal 0.0-0.1 [facility] Comment on above: Performed By: #### P T #### [facility] [address] [place] [address] Dr. Tg Fierro Basophils/100 WBC (Bld) 0.6 % Normal 0.2-2.0 [facility] Comment on above: Performed By: #### P T #### [facility] [address] [place] [address] Dr. Tg Fierro EO # 0.4 103/ul Normal 0.0-0.7 [facility] Comment on above: Performed By: #### P T #### [facility] [address] [place] [address] Dr. Tg Fierro Eosinophils/100 WBC (Bld) 5.4 % Normal 0.9-7.0 [facility] Comment on above: Performed By: #### P T #### [facility] [address] [place] [address] Dr. Tg Fierro Erythrocyte distribution width (RBC) [Ratio] 13.5 % Normal 11.0-15.0 [facility] Comment on above: Performed By: #### P T #### [facility] [address] [place] [address] Dr. Tg Fierro Hematocrit (Bld) [Volume fraction] 39.4 % Normal 36.0-48.0 [facility] Comment on above: Performed By: #### P T #### [facility] [address] [address] [address] Tg Fierro Hemoglobin (Bld) [Mass/Vol] 12.8 g/dL Normal 12.0-16.0 [facility] Comment on above: Performed By: #### P T #### [facility] [address] [place] [address] Dr. Tg Fierro IG # 0.02 10e3/ul Normal 0.00-0.03 [facility] Comment on above: Performed By: #### P T #### [facility] [address] [place] [address] Dr. Tg Fierro IG % 0.3 % Normal 0.0-0.5 [facility] Comment on above: Performed By: #### P T #### [facility] [address] [place] [address] Dr. Tg Fierro LYMPH # 2.4 103/ul Normal 1.2-3.8 [facility] Comment on above: Performed By: #### P T #### [facility] [address] [place] [address] Dr. Tg Fierro Lymphocytes/100 WBC (Bld) 36.2 % Normal 20.5-60.0 [facility] Comment on above: Performed By: #### P T #### [facility] [address] [place] [address] Dr. Tg Fierro MANUAL DIFF REQ NO Normal [facility] Comment on above: Performed By: #### P T #### [facility] [address] [place] [address] Dr. Tg Fierro MCH (RBC) [Entitic mass] 31.0 pg Normal 26.7-34.0 [facility] Comment on above: Performed By: #### P T #### [facility] [address] [place] [address] Dr. Tg Fierro MCHC (RBC) [Mass/Vol] 32.5 g/dL Normal 29.9-35.2 [facility] Comment on above: Performed By: #### P T #### [facility] [address] [address] [address] Tg Fierro MCV (RBC) [Entitic vol] 95.4 fL Normal 81.0-99.0 [facility] Comment on above: Performed By: #### P T #### [facility] [address] [address] [address] Tg Fierro MONO # 0.5 103/ul Normal 0.3-0.8 [facility] Comment on above: Performed By: #### P T #### [facility] [address] [address] [address] Tg Fierro Monocytes/100 WBC (Bld) 8.0 % Normal 1.7-12.0 [facility] Comment on above: Performed By: #### P T #### [facility] [address] [place] [address] Dr. Tg Fierro NEUT # 3.3 103/ul Normal 1.4-6.5 [facility] Comment on above: Performed By: #### P T #### [facility] [address] [address] [address] Tg Fierro Neutrophils/100 WBC (Bld) 49.5 % Normal 43.0-75.0 [facility] Comment on above: Performed By: #### P T #### [facility] [address] [place] [address] Dr. Tg Fierro Platelet mean volume (Bld) [Entitic vol] 8.7 fL Critically low 9.5-13.5 [facility] Comment on above: Performed By: #### P T #### [facility] [address] [place] [address] Dr. Tg Fierro PLT 276 103/ul Normal 150-450 [facility] Comment on above: Performed By: #### P T #### [facility] [address] [address] [address] Tg Fierro RBC 4.13 106/ul Critically low 4.20-5.40 [facility] Comment on above: Performed By: #### P T #### [facility] [address] [address] [address] Tg Fierro WBC 6.7 103/ul Normal 4.0-11.0 [facility] Comment on above: Performed By: #### P T #### [facility] [address] [address] [address] Tg Fierro GLYCOHEMOGLOBIN A1Con 2021 ADA RECOMMENDATION SEE BELOW Normal [facility] Comment on above: Result Comment: ADA RECOMMENDED LIMIT 4.0 - 6.0 ADA THERAPEUTIC TARGET < 7.0 ACTION SUGGESTED > 7.0 Performed By: #### A 1C #### [facility] [address] [address] [address] Tg Fierro Glucose [Mass/Vol] 151 mg/dL Normal [facility] Comment on above: Performed By: #### A 1C #### [facility] [address] [place] [address] Dr. Tg Fierro HbA1c (Bld) [Mass fraction] 6.9 % Critically high 4.5-6.2 [facility] Comment on above: Performed By: #### A 1C #### [facility] [address] [address] [address] Tg Fierro PROF 14(COMP METB)on 022 Albumin [Mass/Vol] 3.8 g/dL Normal 3.4-5.0 [facility] Comment on above: Performed By: #### P T #### [facility] [address] [place] [address] Dr. Tg Fierro Albumin/Globulin [Mass ratio] 1.3 {ratio} Normal [facility] Comment on above: Performed By: #### P T #### [facility] [address] [address] [address] Tg Fierro ALP [Catalytic activity/Vol] 43 U/L Critically low 46-116 [facility] Comment on above: Performed By: #### P T #### [facility] [address] [place] [address] Dr. Tg Fierro ALT [Catalytic activity/Vol] 19 U/L Normal 14-59 [facility] Comment on above: Performed By: #### P T #### [facility] [address] [address] [address] Tg Fierro Anion gap [Moles/Vol] 13.7 mmol/L Normal [facility] Comment on above: Performed By: #### P T #### [facility] [address] [address] [address] Tg Fierro AST [Catalytic activity/Vol] 11 U/L Critically low 15-37 [facility] Comment on above: Performed By: #### P T #### [facility] [address] [address] [address] Tg Fierro Bilirubin [Mass/Vol] 0.4 mg/dL Normal 0.2-1.0 [facility] Comment on above: Performed By: #### P T #### [facility] [address] [place] [address] Dr. Tg Fierro Calcium [Mass/Vol] 9.1 mg/dL Normal 8.5-10.1 [facility] Comment on above: Performed By: #### P T #### [facility] [address] [address] [address] Tg Fierro Chloride [Moles/Vol] 104 mmol/L Normal 98-107 [facility] Comment on above: Performed By: #### P T #### [facility] [address] [address] [address] Tg Fierro CO2 [Moles/Vol] 28.5 mmol/L Normal 21.0-32.0 [facility] Comment on above: Performed By: #### P T #### [facility] [address] [address] [address] Tg Fierro Creatinine [Mass/Vol] 0.77 mg/dL Normal 0.55-1.02 [facility] Comment on above: Performed By: #### P T #### [facility] [address] [address] [address] Tg Fierro EGFR-AF DJIBOUTIAN >60 Normal >=60 [facility] Comment on above: Performed By: #### P T #### [facility] [address] [place] [address] Dr. Tg Fierro EGFR-NON AF DJIBOUTIAN >60 Normal >=60 [facility] Comment on above: Performed By: #### P T #### [facility] [address] [place] [address] Dr. Tg Fierro Globulin (S) [Mass/Vol] 3.0 g/dL Normal [facility] Comment on above: Performed By: #### P T #### [facility] [address] [place] [address] Dr. Tg Fierro Glucose [Mass/Vol] 124 mg/dL Critically high 74-106 [facility] Comment on above: Performed By: #### P T #### [facility] [address] [place] [address] Dr. Tg Fierro Potassium [Moles/Vol] 4.2 mmol/L Normal 3.5-5.1 [facility] Comment on above: Performed By: #### P T #### [facility] [address] [place] [address] Dr. Tg Fierro Protein [Mass/Vol] 6.8 g/dL Normal 6.4-8.2 [facility] Comment on above: Performed By: #### P T #### [facility] [address] [place] [address] Dr. Tg Fierro Sodium [Moles/Vol] 142 mmol/L Normal 136-145 [facility] Comment on above: Performed By: #### P T #### [facility] [address] [place] [address] Dr. Tg Fierro Urea nitrogen [Mass/Vol] 12.0 mg/dL Normal 7.0-18.0 [facility] Comment on above: Performed By: #### P T #### [facility] [address] [place] [address] Dr. Tg Fierro Urea nitrogen/Creatinine [Mass ratio] 15.6 mg/mg Normal [facility] Comment on above: Performed By: #### P T #### [facility] [address] [place] [address] Dr. Tg Fierro SED RATE [facility] 2021 SED RATE 8 mm/hr Normal <=30 [facility] Comment on above: Performed By: #### C MP #### [facility] [address] [place], [place] [address] Dr. Tg Fierro COVID Quick Testingon 2020 Result Positive [place] Other Vital Signs Date Time Vital Sign Value Performing Clinician Facility 08-13-2023 10:47-0500 Blood Pressure Location Renato SANTACRUZ [facility] 08-13-2023 10:47-0500 Diastolic blood pressure 62 mm[Hg] Renato SANTACRUZ [facility] 08-13-2023 10:47-0500 Heart rate 82 /min Renato SANTACRUZ [facility] 08-13-2023 10:47-0500 Respiratory rate 16 /min Renato SANTACRUZ [facility] 08-13-2023 10:47-0500 Systolic blood pressure 105 mm[Hg] Renato SANTACRUZ [facility] 08-07-2023 09:48-0500 Body height 160 cm Jayme Perez MD Work Phone: [facility] 08-07-2023 09:48-0500 Body mass index (BMI) [Ratio] 24.45 kg/m2 Jayme Perez MD Work Phone: [facility] 08-07-2023 09:48-0500 Body weight 62.6 kg Jayme Perez MD Work Phone: [facility] 08-07-2023 09:48-0500 Heart rate 57 /min Jayme Perez MD Work Phone: [facility] 08-07-2023 09:48-0500 SaO2% (BldA) [Mass fraction] 98 % Jayme Perez MD Work Phone: [facility] 07-25-2023 09:20-0500 Body height 160.02 cm Lou Glover Other [place] Other 07-25-2023 09:20-0500 Body mass index (BMI) [Ratio] 23.91 kg/m2 Lou Glover Other [place] Other 07-25-2023 09:20-0500 Body temperature 97.7 [degF] Lou Glover Other [place] Other 07-25-2023 09:20-0500 Body weight 61.24 kg Lou Glover Other [place] Other 07-25-2023 09:20-0500 Diastolic blood pressure 74 mm[Hg] Lou Glover Other [place] Other 07-25-2023 09:20-0500 Respiratory rate 18 /min Lou Glover Other [place] Other 07-25-2023 09:20-0500 SaO2% (BldA) [Mass fraction] 96 % Lou Glover Other [place] Other 07-25-2023 09:20-0500 Systolic blood pressure 120 mm[Hg] Lou Glover Other [place] Other 03-26-2023 13:15-0400 Body height 160.02 cm MD Jayme Perez Work Phone: [facility] 03-26-2023 13:15-0400 Body temperature 98.2 [degF] MD Jayme Perez Work Phone: [facility] 03-26-2023 13:15-0400 Body weight 66 kg MD Jayme Perez Work Phone: [facility] 03-26-2023 13:15-0400 Diastolic blood pressure 71 mm[Hg] MD Jayme Perez Work Phone: [facility] 03-26-2023 13:15-0400 Heart rate 87 /min MD Jayme Perez Work Phone: [facility] 03-26-2023 13:15-0400 Respiratory rate 16 /min MD Jayme Perez Work Phone: [facility] 03-26-2023 13:15-0400 SaO2% (BldA) [Mass fraction] 97 % MD Jayme Perez Work Phone: [facility] 03-26-2023 13:15-0400 Systolic blood pressure 117 mm[Hg] MD Jayme Perez Work Phone: [facility] 05-21-2021 13:15-0500 Body height 160.02 cm Astrid Baker Other [place] Other 05-21-2021 13:15-0500 Body mass index (BMI) [Ratio] 23.91 kg/m2 Astrid Baker Other [place] Other 05-21-2021 13:15-0500 Body temperature 97.3 [degF] Astrid Baker Other [place] Other 05-21-2021 13:15-0500 Body weight 61.24 kg Astrid Baker Other [place] Other 05-21-2021 13:15-0500 SaO2% (BldA) [Mass fraction] 94 % Astrid Baker Other [place] Other Encounters Encounter Date Encounter Type Care Provider Facility Start: 09-01-2023 End: 09-01-2023 ambulatory FELICIA FARMER Not Available Start: 08-20-2023 Clinisync Result Encounter Generic External Data Provider [facility] External Department Unsolicited Start: 08-20-2023 Clinisync Result Encounter Generic External Data Provider [facility] External Department Unsolicited Start: 08-14-2023 End: 08-15-2023 ambulatory Renato SANTACRUZ Facility:[id number] Start: 08-13-2023 End: 08-14-2023 ambulatory Renato SANTACRUZ Facility:[facility] Start: 08-13-2023 End: 08-13-2023 Patient encounter procedure Renato R SANTACRUZ [facility] Start: 08-07-2023 End: 08-07-2023 ambulatory JAYME [...] (CMS/HCC); Microalbuminuria; Former smoker; 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, adult; custodial current use of anticoagulant; Psoriatic arthropathy (CMS/HCC); Gastroesophageal reflux disease without esophagitis Start: 07-30-2023 End: 07-30-2023 ambulatory JAYME PEREZ Not Available Start: 07-25-2023 End: 07-25-2023 ambulatory Lou Glover Other [place] Other Start: 07-25-2023 Office outpatient vi sit 25 minutes Lou Glover [facility] Start: 07-10-2023 End: 07-10-2023 ambulatory FELICIA HITCHCOCKHLER Not Available Start: 07-02-2023 End: 07-02-2023 ambulatory FELICIA HITCHCOCKHLER Not Available Start: 06-25-2023 End: 06-25-2023 ambulatory FELICIAZULEIMA HITCHCOCKHLER Not Available Start: 06-18-2023 End: 06-18-2023 ambulatory FELICIAZULEIMA HITCHCOCKHLER Not Available Start: 04-07-2023 End: 04-07-2023 ambulatory Williams Shepherd Facility:[facility] Start: 04-07-2023 End: 04-07-2023 Departed Referred MD Jayme Perez Work Phone: [facility] [place] Start: 04-07-2023 End: 04-08-2023 ambulatory MD Jayme Perez Work Phone: [facility] Work Phone: Start: 03-26-2023 End: 03-26-2023 ambulatory Williams Shepherd Facility:[facility] Start: 03-26-2023 End: 03-26-2023 Patient encounter procedure MD Jayme Perez Work Phone: [facility] Work Phone: Start: 03-20-2023 End: 03-21-2023 ambulatory Williams SHEPHERD Facility:[facility] Start: 03-20-2023 End: 03-20-2023 Lab Drop off Williams SHEPHERD [facility] Start: 03-20-2023 End: 03-20-2023 Patient encounter procedure Williams SHEPHERD [facility] Start: 02-03-2023 End: 02-04-2023 ambulatory Williams [...] 05-21-2021 End: 05-21-2021 ambulatory Astrid Baker Other [place] Other Start: 05-21-2021 Office outpatient vi sit [...] bladder with insertion of stent into ureter iWlliams SHEPHERD Abdominal hysterectomy Bhavesh SANTACRUZ Appendectomy Renato nanoRETE Extraction of cataract Bhavesh resendiz SANTACRUZ Partial lobectomy of lung Pa andreyk SANTACRUZ Tonsillectomy Renato SANTACRUZ Plan of Treatment Date Care Activity Detail Author Start: 05-19-2025 Glaucoma screening Diabetes: Retinopathy Screening [facility] Start: 07-12-2024 ambulatory Ambulatory Facility:[facility] Start: 05-22-2024 Medicare Annual Wellness (AWV) Medicare Annual Wellness (AWV) [facility] Start: 10-14-2023 ambulatory Ambulatory Facility:[facility] Start: 09-01-2023 End: 09-01-2023 Patient encounter procedure 09/01/2023 10:30 AM EST Office Visit [facility] [address] [place] [id number] Felicia Farmer DO [address] [place] [address] [facility] Start: 05-06-2023 Hemoglobin A1c measurement Diabetes: Hemoglobin A1C [facility] Start: 04-07-2023 Abdomen endoscopy OR Cysto/Retro/Stent/Stone/ Holmium Laser (Right) [facility] Start: 03-14-2023 Influenza vaccination Influenza Vaccine (#1) [facility] Start: 1951 Pneumococcal Vaccine: 65+ Years (1 - PCV) Pneumococcal Vaccine: 65+ Years (1 - PCV) [facility] Immunizations Immunization Date Immunization Notes Care Provider Fa darek NEGATED: Highlighted row has not occurred!08-13-2023 influenza virus vaccine, unspecified formulation Renato SANTACRUZ [facility] NEGATED: Highlighted row has not occurred!08-13-2023 SARS-CoV-2 mRNA (tozinameran 5y-11y) vaccine Renato SANTACRUZ [facility] NEGATED: Highlighted row has not occurred!09-21-2019 influenza virus vaccine, live, attenuated, for intranasal use [employer] [facility] NEGATED: Highlighted row has not occurred!08-20-2019 influenza virus vaccine, live, attenuated, for intranasal use [employer] [facility] Payers Date Payer Category Payer Self-pay [id number] 2022 Unknown [employer] [id number] 2022-Present [address] [address] [place] [address] [id number] 2022 Medicare [id number] 2002 Medicare MEDICARE MEDICAR E PART B [id number] 2002-[place] [address] Medicare [id number] 1959 Medicare [id number] 2.16.840.1.750908.19 1959 Unknown [id number] 1946 Unknown [id number] 2.16.840.1.161779.3.579.2.59 3 1946 Unknown [id number] 2.16.840.1.398741.3.579.2.59 3 1946 Unknown [id number] 2.16.840.1.522861.3.579.2.59 3 1946 Unknown [id number] 2.16.840.1.348500.3.579.2.59 3 1946 Unknown [id number] 2.16.840.1.965016.3.579.2.59 3 1946 Unknown [id number] 2.16.840.1.264843.3.579.2.59 3 1946 Unknown [id number] 2.16.840.1.765587.3.579.2.59 3 1946 Unknown [id number] 2.16.840.1.267090.3.579.2.59 3 1946 Unknown [id number] 2.16.840.1.942505.3.579.2.59 3 1946 Unknown [id number] 2.16.840.1.274351.3.579.2.59 3 1946 Unknown [id number] 2.16.840.1.013825.3.579.2.59 3 194 Unknown [id number] 2.16.840.1.559951.3.579.2.59 3 1946 Unknown [id number] 2.16.840.1.974146.3.579.2.59 3 1946 Unknown [id number] 2.16.840.1.969880.3.579.2.72 7 1946 Unknown [id number] 2.16.840.1.048668.3.579.2.72 7 1946 Unknown [id number] 2.16.840.1.590051.3.579.2.72 7 1946 Unknown [id number] 2.16.840.1.825988.3.579.2.72 7 1946 Unknown [id number] 2.16.840.1.880385.3.579.2.72 7 1946 Unknown [id number] 2.16.840.1.233691.3.579.2.72 7 1946 Unknown [id number] 2.16.840.1.999149.3.579.2.72 7 1946 Unknown [id number] 2.16.840.1.548156.3.579.2.12 59 1946 Unknown [id number] 2.16.840.1.899388.3.579.2.12 59 1946 Unknown [id number] 2.16.840.1.501744.3.579.2.12 59 1946 Unknown [id number] 2.16.840.1.357667.3.579.2.12 59 1946 Unknown [id number] 2.16.840.1.744001.3.579.2.12 59 1946 Unknown [id number] 2.16.840.1.653925.3.579.2.12 59 1946 Unknown [id number] 2.16.840.1.923977.3.579.2.12 59 Unknown [id number] 2.16.840.1.335250.3.579.2.53 1 Unknown [id number] 2.16.840.1.516748.3.579.2.53 1 Social History Date Type Detail Facility Sex Assigned At [place] Other Start: 02-03-2023 End: 08-07-2023 Tobacco smoking status Ex-smoker (finding) [facility] Tobacco smoking status Never [facility] Start: 12-11-2022 End: 05-22-2023 Sex Assigned At Female [facility] Start: 1945 Sex Assigned At Female [facility] End: 07-14-1986 History of tobacco use [...] 08-13-2023 Functional Status N/A [facility] Clinical Notes 02-21-2022 to 08-13-2023 Jayme [...] including vitamins, herbs, eye drops, creams, and oefz-xmn-cjwjkbr medicines. Any problems you or family members [...] provider tells you to take them. ?Taking ltuf-tqg-hfxpesh medicines, vitamins, herbs, and supplements. Eating and [...] provider. Document Revised: 11/06/2022 Document Reviewed: 03/04/2022 [employer] Patient Education 2022 [employer]orb. Follow Up Care 08/12/2023 14:37:00 With:ANGELITO AGUIAR, Renato Arzola, URL Address: [facility] [address] , [place] [address] [phone] When: Unknown Comments:sched ureteroscopyf/u w/ GPC scheduled 10/14/23 [facility] 08-07-2023 History of Present illness Narrative [...] 36.1 (H) 9.0 - 11.6 sec Final [facility] INR 08/05/2023 3.67 Final Comment: DESIRED INR: [...] 0.55 - 1.02 mg/dL Final [facility] EGFR-AF DJIBOUTIAN 07/22/2023 >60 >=60 Final [facility] EGFR-NON AF DJIBOUTIAN 07/22/2023 55 (L) >=60 Final BUN CREATININE [...] without long-term current use of insulin (HCC) ([facility]) - metFORMIN (Glucophage) 1000 MG tablet; Take [...] treats. Stage 3a chronic kidney disease (HCC) ([facility]) New, Chronic problem, unstable, progressing, defining the [...] cardiovascular disease. Former smoker 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, adult custodial current use of anticoagulant Chronic problem, that is monitored monthly, and be seen in the monthly INR results. documented in this encounter [facility] 07-25-2023 Evaluation note Encounter Date Diagnosis Assessment [...] care as directed rx of steroid and Cody, cool mist humidification. May use Tylenol as directed. Immediate eval for signs of respiratory distress, difficulty breathing poor PO intake, signs of dehydration, fever, or other concerning symptoms. Otherwise, follow up with PCP in 2-3 days. Patient verbalizes understanding and is agreeable to treatment plan. Patient sent home in stable condition. [place] [employer] Other 08-11-2022 NotePROCEDURE: XR FOOT LT MIN 3 VIEWS COMPARISON: None. HISTORY: Pain in left foot FINDINGS: BONES:No acute fracture or dislocation. Mild enthesopathic spurring of the calcaneus. SOFT TISSUES:Negative. No visible soft tissue swelling. EFFUSION:None visible. OTHER: Negative. IMPRESSION: Mild enthesopathic spurring of the calcaneus Electronically authenticated by: BLANCA ZAVALA Date: 2022-02-21 [facility] Future App[facility]ments Appointment Date:07/12/2024 10:45:00 AM Scheduled Provider:Williams SHEPHERD MD Location:[facility] hospital Appointment Type:URO Office Visit [facility] Evaluation + Plan note Future Appointments Appointment Date:07/12/2024 10:45:00 AM Scheduled Provider:Williams SHEPHERD MD Location:Critical access hospital Appointment Type:URO Office Visit Diagnostic Tests Pending * Calculi Analysis [facility] App[facility]ments Appointment Date:10/14/2023 09:15:00 AM Scheduled Provider:Williams SHEPHERD MD Location:[facility] Appointment Type:URO Office Visit Appointment Date:07/12/2024 10:45:00 AM Scheduled Provider:Williams SHEPHERD MD Location:[facility] Appointment Type:URO Office Visit [facility] evaluqsnwx noteNort [employer] Other Evaluazuub noteNo assessment information available [facility] Work Phone: Evaluation note* Diagnosis Chronic diastolic heart failure (CMS/HCC)- Primary Chronic diastolic heart failure 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 ([facility]/HCC) Atrial fibrillation Type 2 diabetes mellitus with stage 3a chronic kidney disease, without long-term current use of insulin (HCC) ([facility]/HCC) Stage 3a chronic kidney disease (HCC) ([facility]/HCC) Microalbuminuria Proteinuria Former smoker Personal history of tobacco use, presenting hazards to health 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, adult custodial current use of anticoagulant Psoriatic arthropathy ([facility]) Psoriatic arthropathy Gastroesophageal reflux disease without esophagitis Esophageal reflux documented in this encounter [facility] Narrative - [facility] Other History general Narrative - Reported* Type Description Date Medical History Arthritis Medical History diabetes mallitus Surgical History cataract surgery [facility] Other [facility] course Narrative No data available for this section [facility] Discharge instructions No data available for this section [facility] Progress note No data available for this section [facility] Summary Purpose Family History No Family History [...] content) DATE CREATED AUTHOR 12/20/2022 [facility] DATE CREATED AUTHOR AUTHOR'S ORGANIZ ATION 06/09/2023 [facility] DATE CREATED AUTHOR AUTHOR'S ORGANIZ ATION 08/29/2023 [facility] DATE CREATED AUTHOR AUTHOR'S ORGANIZ ATION 09/01/2023 [facility] EPIC Patient Care team informatio n (unrecognized section and content) Team Status: Active Member Role Status Dates Jayme Perez MD Primary Care Provider Active Team Status: Inactive Member Role Status Dates Jayme Perez MD Primary Care Provider Active Williams Shepherd MD Attending Provider Active [employer] Relationship Specialty Start Date End Date Jayme Perez MD [address] [place] [address] (Fax) PCP - General Family Medicine 11/25/22 Jayme Perez MD [address] [place] [address] (Fax) PCP - ACO Reach 12/05/22 [employer] Relationship Specialty Start Date End Date Jayme Perez MD [address] [place] [address] (Fax) PCP - General Family Medicine 11/25/22 Jayme Perez MD [address] [facility] [place] [address] (Fax) PCP - ACO Reach 12/05/22 Goals [...] BE BASED ON THE PRIMARY CLINICAL RECORDS. [employer] provides no warranty or guarantee of the accuracy or completeness of information in this document.
== END 2023-10-08 10:24 | disposition home or self-care (01) ==
LOC: RAD 10:25
PROVIDERS: PCP Family Medicine; Visit Provider Urology
DX: N20.0 Calculus of kidney (principal)
CPT/HCPCS: 74018

== ENCOUNTER 2023-10-20 09:51 | Outpatient (OUT) | payer MEDICARE, SELFPAY ==
--- OUTSIDE RECORDS SUMMARY | 2023-10-20 10:15 | XMS_ITS | CCD ---
Author Organization [facility] Care Team Providers Care Frame Carver Spindle Name Role Phone Astrid Baker Unavailable CAYETANO, [...] Attending Unavailable CAYETANO, DR CRUM Admdiallo Unavailable HIGHMOUNT, DR BLANCA Haskins Consulting Unavailable HEMEYER ., DR MCKINNEY Primary Care Unavailable MONTEIRO, DR CRUM Consulting Unavailable CAYETANO, DR CRUM Consulting Unavailable CAYETANO, DR CRUM Attending Unavailable CAYETANO, DR CRUM Admdiallo Unavailable HEMEYER ., DR [...] Unavailable HEMEYER ., EDINA Primary Care Unavailable JAYME PEREZ Primary Care Physician Unavail able MD Jayme Perez Primary Care Provider MD Williams Shepherd Attending Provider Williams Shepherd Admitting Unavailable Williams Shepherd Attending Unavailable Jayme Perez Primary Care Unavailable Williams Shepherd Attending Unavailable Chris, Jayme Hazel Primary Care Unavailable Williams Shepherd Admitting Unavailable Lou Glover Unavailable Jayme Perez MD Primary Care Provider Jayme Perez MD Unavailable FELICIA FARMER Attending Unavailable JAYME PEREZ Attending Unavailable HEMERONI, JAYME Hazel Attending Unavailable FELICIA FARMER Attending Unavailable FELICIA FARMER Attending Unavailable CORETTAHLKACI, FELICIA Mejias Attending Unavailable FELICIA FARMER Attending Unavailable Renato SANTACRUZ Attending Unavailable COOKWilliams P Attending Unavailable COOK, Williams P Attending Unavailable COOK, Williams P Admitting Unavailable COOKVargasWilliams P Attending Unavailable Radha SANTACRUZrick Ness Attending Unavailable COOK, Williams P Attending Unavailable COOK, Williams P Attending Unavailable COOK Williams P Attending Unavailable Allergies Allergy Classification Reported Allergen(s) Allergy Type Date of Onset Reaction(s) Facility (11 sources) Ciprofloxacin; Translations: [ciprofloxacin] Drug Allergy 02-19-20 anaphylaxis, Unknown (qualifier value) [facility] (1 source) sulfaSALAzine Drug Allergy rash [id number] Other (1 source) Ciprofloxacin Drug Allergy 03-30-20 13 [facility] (2 sources) Ketorolac; Translations: [Toradol] Drug Allergy 03-30-20 13 [facility] (2 sources) metroNIDAZOLE; Translations: [MetroGel] Drug Allergy 03-30-20 13 [facility] (1 source) NSAIDs Drug allergy (disorder) 03-30-20 13 [facility] (2 sources) pioglitazone; Translations: [Actos] Drug Allergy 03-30-20 13 [facility] (1 source) Sulfonamides (Antibiotic) Drug allergy (disorder) 03-30-20 13 [facility] (10 sources) Ketorolac; Translations: [ketorolac] Drug Allergy 03-26-20 Unknown (qualifier value), Nausea (finding) [facility] Comment on above: Severe (10 sources) Latex; Translations: [latex] Drug allergy 01-07-20 Blister of skin AND/OR mucosa (finding) [facility] (8 sources) Non-steroidal anti-inflammatory agent; Translations: [NSAIDs] Drug allergy 02-19-20 22 Unknown (qualifier value) [facility] (11 sources) pioglitazone; Translations: [pioglitazone] Drug Allergy 01-07-20 23 Unknown (qualifier value) [facility] (5 sources) Sulfonamides (Antibiotic); Translations: [sulfa drugs] Drug allergy Unknown (qualifier value) [facility] (7 sources) metroNIDAZOLE; Translations: [metronidazole] Drug Allergy 02-19-20 22 Redness of Skin [facility] (2 sources) Sulfonamides (Antibiotic); Translations: [Sulfa (Sulfonamide Antibiotics)] Allergy to substance 03-26-20 Rash [facility] (2 sources) NSAIDS (Non-Steroidal Anti-Inflamma; Translations: [NSAIDS (Non-Steroidal Anti-Inflamma] Allergy to substance 03-26-20 Anaphylaxis [facility] (1 source) Ciprofloxacin Drug Allergy 03-26-20 23 [facility] (1 source) Ketorolac Drug Allergy 03-26-20 [facility] (1 source) pioglitazone Drug Allergy 03-26-20 [facility] (1 source) Non-steroidal anti-inflammatory agent Drug allergy rash [id number] Other (4 sources) Substance with sulfonamide structure and antibacterial mechanism of action (substance) Drug allergy 02-19-20 rash [id number] Other (3 sources) Ketorolac Allergy to substance 01-07-20 Nausea Only [facility] (3 sources) Hydrocodone Bit-Homatrop Mbr Propensity to adverse reactions 08-07-19 Dizziness [facility] (3 sources) Medical Adhesive Remover Drug Allergy 02-19-20 [facility] Medications Current Medications Medication Drug Class(es) Dates Sig (Normalized) Sig (Original) acarbose 100 mg oral tablet (12 sources) alpha-Glucosidase Inhibitor Start: 08-17-2019 End: 02-03-2024 take 100 mg by mouth three times daily acarbose 100 mg, Oral, TID, Refills(s) 0 Start Date: 08/17/19 Status: Ordered Start: 08-17-2019 acarbose Oral, TID, Refills(s) 0 [...] / oxyCODONE hydrochloride 5 mg oral tablet (3 sources) Opioid Agonist Start: 08-12-2023 take 1 tablet by mouth every six hours Percocet 5 mg-325 mg oral tablet 1 tab(s), Oral, q6hr, Refill(s) 0 Start Date: 08/13/23 Status: Ordered [id number] actuat albuterol 0.09 mg/actuat metered dose [...] May, Not-Taking/PRN aspirin 81 mg oral tablet (4 sources) Platelet Aggregation Inhibitor, Nonsteroidal Anti-inflammatory Drug Start: 08-17-2019 take 1 mg by mouth once daily aspirin 81 mg oral tablet mg tab(s), Oral, Daily, Refills(s) 0 Start Date: 08/17/19 Status: Ordered calcium citrate 950 mg oral tablet (8 sources) Start: 03-26-2023 take 200 mg by [...] daily March 25, 2023 11:00pm Cinnamon Preparation (4 sources) Non-Standardized Food Allergenic Extract Start: 09-19-2020 take 1000 mg by mouth once daily cinnamon 1,000 mg, Oral, Daily Start Date: 09/19/20 Status: Ordered Start: 09-19-2020 take 1 mg by mouth twice daily cinnamon mg, Oral, BID Start Date: 09/19/20 Status: Ordered Cyanocobalamin-Liver Extract (Vitamin Q18-Njroj) Tablet (1 source) Start: 03-26-2023 take 1 tablet by mouth once daily Cyanocobalamin-Liver Extract (Vitamin H45-Cgjuk) Tablet Active 1 TAB PO every day at noon March 25, 2023 11:00pm dextromethorphan hydrobromide 1.5 mg/ml / pyrilamine maleate 1.5 mg/ml oral solution (1 source) Uncompetitive L-bdnbht-V-aspar muñoz Receptor Antagonist, Sigma-1 Agonist Start: 07-25-2023 take 10 mL by mouth every eight hours Dodge DM 7.5-7.5 MG/5ML 10 mL Orally every 8 hours for 5 days Jul, Active esomeprazole 20 mg oral tablet (8 sources) Proton Pump Inhibitor Start: 08-17-2019 Nexium 20 mg, Oral, As Directed, Refills(s) 0 Start Date: 08/17/19 Status: Ordered Start: 08-17-2019 Nexium Oral, D aily, Refills(s) 0 Start Date: 08/17/19 Status: Ordered take 1 capsule by [facility] once daily esomeprazole (NexIUM) 20 MG [...] 11:00pm 4 ml golimumab 12.5 mg/ml injection (5 sources) Tumor Necrosis Factor Sergey Start: 03-26-2023 Golimumab (Simponi Aria) 12.5 mg/mL Solution Active 12.5 MG IV EVERY 8 WEEKS March 25, 2023 11:00pm may 13 Start: 08-20-2019 Simponi Aria m g/kg, IV, q4wk, Refills(s) 0 Start Date: 08/20/19 Status: Ordered Insulin Glargine (2 sources) Insulin Analog Lantus Active metFORMIN hydrochloride 1000 mg oral tablet (12 sources) Biguanide Start: 08-17-2019 End: 02-03-2024 take 1000 mg by mouth twice daily metformin 1,000 mg, Oral, BID, Refills(s) 0 Start Date: 08/17/19 Status: Ordered Start: 08-17-2019 metformin Oral , Refills(s) 0 Start Date: 08/17/19 Status: Ordered metFORMIN HCl Ac tive methotrexate 2.5 mg/ml oral solution (7 sources) Folate Analog Metabolic Inhibitor Start: 03-26-2023 take 1.5 mg by mouth every week Methotrexate Active 1.5 MG PO every week March 25, 2023 11:00pm Start: 08-17-2019 take 5 mg by mouth every week methotrexate 5 mg, Oral, qWeek, Refills(s) 0 Start Date: 08/17/19 Status: Ordered Start: 08-17-2019 methotrexate R efills(s) 0 Start Date: 08/17/19 Status: Ordered Methotrexate Sod ium Active Misc Medication (4 sources) Start: 09-19-2020 Misc Medicatio n See Instructions, Oral Start Date: 09/19/20 Status: Ordered Start: 09-19-2020 Misc Medicatio n ironchlate Start Date: 09/19/20 Status: Ordered Multi Vitamins oral tablet (4 sources) Start: 09-19-2020 take 1 tablet by mouth once daily Multi Vitamins oral tablet 1 tab(s), Oral, Daily, Refill(s) 0 Start Date: 09/19/20 Status: Ordered Start: 09-19-2020 Multi Vitamins oral tablet Oral, Daily, Refill(s) 0 Start Date: 09/19/20 Status: Ordered ondansetron 4 mg oral tablet (3 sources) Serotonin-3 Receptor Antagonist Start: 08-13-2023 ondansetron 4 mg Tab mg tab(s), Oral, As Directed, Refills(s) 0 Start Date: 08/13/23 Status: Ordered Start: 08-12-2023 take 1 tablet by valdo every eight hours as needed for nausea ondansetron ODT (Zofran-ODT) 4 MG disintegrating tablet Take 4 mg by mouth every 8 (eight) hours if needed for nausea 0 08/12/2023 Active predniSONE 2.5 mg oral tablet (7 sources) Start: 03-26-2023 take 2.5 mg by [...] Ordered Start: 08-12-2023 take 1 capsule by mo [facility] every twenty-four hours in the morning tamsulosin (Flomax) 0.4 MG 24 hr capsule Take 0.4 mg by mouth in the morning. 0 08/12/2023 Active vitamin B12 (7 sources) Vitamin B12 Start: 08-17-2019 take 3000 [...] time each day. 0 Active Vitamin D3 (4 sources) Start: 08-17-2019 Vitamin D3 1,0 00 unit(s), Daily, Refills(s) 0 Start Date: 08/17/19 Status: Ordered Start: 08-17-2019 Vitamin D3 Alexandra ly, Refills(s) 0 Start Date: 08/17/19 Status: Ordered warfarin sodium 2.5 mg oral tablet (11 sources) Vitamin K Antagonist Start: 08-18-2023 End: [...] 08/17/2024 Active Start: 02-03-2023 End: 08-18-2023 take 3 mg by mouth once daily warfarin 3 mg, Oral, Alexandra ly Start Date: 02/03/23 Status: Ordered Start: 02-03-2023 [...] Problem Date Documented Date Episodic/Chronic Abdominal pain (7 sources) Abdominal pain; Translations: [Unspecified abdominal pain] Onset: 08-13-2023 09-21-2019 Episodic Anxiety disorders (4 sources) Anxiety 08-17-2019 Chronic Calculus of urinary tract (11 sources) Kidney stone; Translations: [Calculus of kidney] Onset: 03-20-2023 Episodic Cancer of uterus (4 sources) History of malignant neoplasm of uterine body 08-17-2019 Episodic Cardiac dysrhythmias (12 sources) 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; Translations: [Atrial fibrillation] [...] [Type 2 diabetes mellitus] Onset: 08-09-2022 Chronic Diabetes mellitus without complication (7 sources) Diabetes mellitus; Translations: [Type 1 diabetes mellitus without complication] Onset: 05-19-2023 Resolved: 05-22-2023 08-17-2019 Chronic Diverticulosis and diverticulitis (3 sources) 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; Translations: [Diverticulosis of large intestine without perforation or abscess without bleeding] Onset: 12-12-2022 12-12-2022 Chronic Esophageal disorders (5 sources) Gastroesophageal reflux disease without esophagitis; Translations: [Gastro-esophageal reflux disease without esophagitis] Onset: 12-12-2022 08-18-2023 Chronic Genitourinary symptoms and ill-defined conditions (13 sources) Increased frequency of urination; Translations: [Nocturia] Onset: 12-12-2022 09-19-2020 Episodic Glaucoma (3 sources) Preglaucoma, unspecified, bilateral; Translations: [Preglaucoma, unspecified] Onset: 05-19-2023 05-19-2023 Chronic Heart valve disorders (4 sources) Nonrheumatic aortic (valve) stenosis; Translations: [Aortic valve disorders] Onset: 09-05-2022 12-12-2022 Chronic Heart valve disorders (8 sources) Cardiac murmur, unspecified; Translations: [Heart murmur] Onset: 09-05-2022 08-17-2019 Episodic Immunity disorders (3 sources) Immunosuppression; Translations: [Immunodeficiency, unspecified] Onset: 12-12-2022 12-12-2022 Chronic Menopausal disorders (3 sources) Disorder associated with menstruation AND/OR menopause; Translations: [Menopausal and female climacteric states] Onset: 12-12-2022 12-12-2022 Chronic Mood disorders (4 sources) Depressive disorder 08-17-2019 Chronic Nutritional deficiencies (3 sources) Vitamin D deficiency; Translations: [Vitamin D deficiency, unspecified] Onset: 12-12-2022 12-12-2022 Chronic Osteoporosis (3 sources) Osteoporosis; Translations: [Age-related osteoporosis without current pathological fracture] Onset: 12-12-2022 12-12-2022 Chronic Other aftercare (1 source) termite helper (current) use of anticoagulants; Translations: [USP CURRNT USE ANTICOAGULANTS] Onset: 12-11-2022 Episodic Other aftercare (5 sources) Encounter for therapeutic drug level monitoring; Translations: [ENC THERAPEUTC DRUG LEVL MONITORING] Onset: 10-18-2022 Episodic Other aftercare (1 source) Other parts counterman (current) drug therapy; Translations: [OTH USP CURRENT DRUG THERAPY] Onset: 10-31-2022 Episodic Other aftercare (7 sources) Long-term current use of anticoagulant; Translations: [termite helper (current) use of anticoagulants] Onset: 07-21-2023 Episodic Other and ill-defined heart disease (4 sources) Cardiomegaly; Translations: [CARDIOMEGALY] Onset: 09-02-2022 Chronic Other and ill-defined heart disease (3 sources) Ventricular hypertrophy ; Translations: [Cardiomegaly] Onset: 12-12-2022 12-12-2022 Chronic Other diseases of kidney and ureters (2 sources) Urinary tract obstruction; Translations: [Hydronephrosis with renal and ureteral calculous obstruction] Onset: 08-13-2023 Episodic Other inflammatory condition of skin (5 sources) Other psoriatic arthropathy; Translations: [OTHER PSORIATIC ARTHROPATHY] Onset: 09-25-2022 Chronic Other inflammatory condition of skin (5 sources) Psoriatic arthritis; Translations: [Arthropathic psoriasis, unspecified] Onset: 12-12-2022 08-18-2023 Chronic Other nutritional; endocrine; and metabolic disorders (4 sources) Body mass index 25-29 - overweight 09-18-2021 Episodic Residual codes; unclassified (4 sources) H/O: anticoagulant therapy 09-21-2019 Episodic Residual codes; unclassified (5 sources) Body mass index 20-24 - normal; Translations: [Body mass index (BMI) 24.0-24.9, adult] Onset: 07-30-2023 07-30-2023 Episodic Screening and history of mental health and substance abuse codes (9 sources) Ex-smoker; Translations: [Personal history of nicotine dependence] Onset: 03-27-2017 Resolved: 08-07-2023 09-21-2019 Episodic Spondylosis; intervertebral disc disorders; other back problems (6 sources) Degeneration of lumbar intervertebral disc; Translations: [Other intervertebral disc degeneration, lumbar region] Onset: 12-12-2022 12-12-2022 Chronic Unclassified (4 sources) Drug therapy finding 08-20-2019 Unclassified (1 source) Encounter for preprocedural laboratory examination; Translations: [Encounter for preprocedural laboratory examination] Onset: 03-26-2023 Unclassified (2 sources) Obstructive hydronephrosis 08-13-2023 Viral infection (1 source) [...] 12-12-2022 12-12-2022 Episodic Other aftercare (1 source) FPC (current) use of oral hypoglycemic drugs; Translations: [USP USE ORAL HYPOGLYCEMIC DX] Onset: 08-12-2022 Episodic Other aftercare (1 source) termite helper (current) use of insulin; Translations: [PADDING MACHINE OPERATOR CURRENT USE OF INSULIN] Onset: [...] Range Facil ity Ambulatory Visit Summaryon 0 10-14-2023 Ambulatory Visit Summary WILDA SEN :1945 Visit Date:10/14/2023 Ambulatory Visit Instructions Your Diagnosis Ureteral stone with hydronephrosis Kidney stones Anticoagulated Tests Performed XR Abdomen 1 View -- [...] tablet) ondansetron (ondansetron 4 mg Tab) predniSONE warfarin Procedures Performed Lithotripsy (08/14/2023), ESWL - Extracorporeal shockwave lithotripsy for renal [...] Partial lobectomy of lung, Tonsillectomy. Discharge Vitals Temperature (Temporal Artery) 37 ?C Heart Rate (Peripheral) 80 Respiratory Rate 16 Blood Pressure 115/61 Height 160 cm Height 63 in Weight 59 kg Weight 129.8 lb BMI 23.05 What to do next Scheduled Follow-Up Appointments Friday 10:45 AM EST With: CORA AGUIAR, Williams Venegas Where: [facility] Patient Educationon 10-14-19 Patient Education Nephrology Dietary Guidelines to Help Prevent Kidney Stones Kidney stones are deposits of minerals and salts that form inside your kidneys. Your risk of developing kidney stones may be greater depending on your diet, your lifestyle, the medicines you take, and whether you have certain medical conditions. Most people can lower their risks of developing kidney stones by following these dietary guidelines. Your dietitian may give you more specific instructions depending on your overall health and the type of kidney stones you tend to develop. What are tips for following this plan? Reading food labels ? Choose foods with no salt added or low-salt labels. Limit your salt (sodium) intake to less than 1,500 mg a day. ? Choose foods with calcium for each meal and snack. Try to eat about 300 mg of calcium at each meal. Foods that contain 200?500 mg of calcium a serving include: ? 8 oz (237 mL) of milk, calcium-fortifiednon- dairy milk, and calcium-fortifiedfrui t juice. Calcium-fortified means that calcium has been added to these drinks. ? 8 oz (237 mL) of kefir, yogurt, and soy yogurt. ? 4 oz (114 g) of tofu. ? 1 oz (28 g) of cheese. ? 1 cup (150 g) of dried figs. ? 1 cup (91 g) of cooked broccoli. ? One 3 oz (85 g) can of sardines or mackerel. Most people need 1,000?1,500 mg of calcium a day. Talk to your dietitian about how much calcium is recommended for you. Shopping ? Buy plenty of fresh fruits and vegetables. Most people do not need to avoid fruits and vegetables, even if these foods contain nutrients that may contribute to kidney stones. ? When shopping for convenience foods, choose: ? Whole pieces of fruit. ? Pre-made salads with dressing on the side. ? Low-fat fruit and yogurt smoothies. ? Avoid buying frozen meals or prepared deli foods. These can be high in sodium. ? Look for foods with live cultures, such as yogurt and kefir. ? Choose high-fiber grains, such as whole-wheat breads, oat bran, and wheat cereals. Cooking ? Do not add salt to food when cooking. Place a salt shaker on the table and allow each person to add their own salt to taste. ? Use vegetable protein, such as beans, textured vegetable protein (TVP), or tofu, instead of meat in pasta, casseroles, and soups. Meal planning ? Eat less salt, if told by your dietitian. To do this: ? Avoid eating processed or pre-made food. ? Avoid eating fast food. ? Eat less animal protein, including cheese, meat, poultry, or fish, if told by your dietitian. To do this: ? Limit the number of times you have meat, poultry, fish, or cheese each week. Eat a diet free of meat at least 2 days a week. ? Eat only one serving each day of meat, poultry, fish, or seafood. ? When you prepare animal proteins, cut pieces into small portion sizes. For most meat and fish, one serving is about the size of the palm of your hand. ? Eat at least five servings of fresh fruits and vegetables each day. To do this: ? Keep fruits and vegetables on hand for snacks. ? Eat one piece of fruit or a handful of berries with breakfast. ? Have a salad and fruit at lunch. ? Have two kinds of vegetables at dinner. ? You may be told to limit foods that are high in a substance called oxalate. These include: ? Spinach (cooked), rhubarb, beets, sweet potatoes, and Japanese chard. ? Peanuts. ? Potato chips, emirati fries, and baked potatoes with skin on. ? Nuts and nut products. ? Chocolate. ? If you regularly take a diuretic medicine, make sure to eat at least 1 or 2 servings of fruits or vegetables that are high in potassium each day. These include: ? Avocado. ? Banana. ? [place], prune, carrot, or tomato juice. ? Baked potato. ? Cabbage. ? Beans and split peas. Lifestyle ? Drink enough fluid to keep your urine pale yellow. This is the most important thing you can do. Spread your fluid intake throughout the day. ? If you drink alcohol: ? Limit how much you have to: ? 0?1 drink a day for women who are not . ? 0?2 drinks a day for men. ? Know how much alcohol is in your drink. In the [place] one drink equals one 12 oz bottle of beer (355 mL), one 5 oz glass of wine (148 mL), or one 1? oz glass of hard liquor (44 mL). ? Lose weight if told by your health care provider. Work with your dietitian to find an eating plan and weight loss strategies that work best for you. General information ? Talk to your health care provider and dietitian about taking daily supplements. Depending on your health and the cause of your kidney stones, you may be told: ? Do not take high-dose supplements of vitamin C (1,000 mg a day or more). ? To take a calcium supplement. ? To take a daily probiotic supplement. ? To take other supplements such as magnesium, fish oil, or vitamin B6. ? Take vhsd-rog-wutaiyh and prescription medicines only as told by your health care provider. These include supplements. What foods sh (more content not included)... Normal [facility] Urology Office/Clinic Noteon 10-14-2023 Urology Office/Clinic Note Chief Complaint Pt is here for 3 month w/ met w/u & KUB HPI Staff 6 month follow up w/KUB Pt canceled Cysto/R retro/possible: ureteroscopy, laser, basket, stent placement 04/07/23 due to passing stones Pt was then seen at [facility] on 08/12/23 due to abdominal pain, pt was seen [facility] on 08/13/23 and was scheduled for cysto right rigid UD, uteroscopy/laser lithotripsy/stone extraction basket on 08/14/23 Previous DX: abdominal pain, frequent urination, history of uterine cancer, kidney stones, nocturia. S/P ESWL done 08/26/19. Cysto/laser lithotripsy done 04/12/16. Dysuria: denies Incomplete bladder emptying: denies Hematuria: denies Frequency: yes due to water intake Urgency: denies Nocturia: 1-2x a night Stream: steady stream Leaking: denies Post void dripping: denies Wearing pads/ Depends: denies Urge incontinence: denies Stress incontinence: mild Incontinence without Sensory Awareness: denies Abdominal pain: denies Flank pain: denies Sexual complaints: _ History of Present Illness Tests reviewed: reviewed KUB, and stone analysis and met w/up. I have reviewed the previous health record information and history for this patient from Dr. Shepherd. I have reviewed and verified [...] See HPI. Physical Exam Vitals & Measurements T: 37 ?C(Temporal Artery) HR: 80(Peripheral) RR: 16 BP: 115/61 HT: 63 in HT: 160 cm WT: 59 kg WT: 129.8 lb BMI: 23.05 General Appearance: alert , no acute distress, well nourished, well developed female. Assessment/Plan Last saw Dr. Santacruz due to ER consult. Portions of this record may have been created with voice recognition artificial intelligence software, specifically [employer]zeug[employer], [employer] and or [email or web address]. Substitutions may have occurred due to the inherent limitations of voice recognition and artificial intelligence software. 1. Ureteral stone with hydronephrosis (N13.2: Hydronephrosis with renal and ureteral calculous obstruction) [facility] ER visit 08/12/23 due to R flank pain radiating to RLQ. Given Flomax, Percocet, Zofran, and Keflex. Case was discussed w/ Dr. Santacruz. CT AP wo con 08/12/23 [facility] - Moderate R hydro secondary to 5mm distal R ureteral stone. Bilateral nonobstructing subcentimeter renal calculi measuring up to 5mm in RSP. S/p cysto, R rigid ureteral dilation, right ureteroscopy, and laser lithotripsy 08/14/[address] Santacruz. Stone analysis shows 90% ca ox dihydrate and 10% ca ox monohydrate. Met w/up completed 08/20/23. High urine sodium 111, high urine calcium 25.3, total volume 1150. KUB 10/08/23 shows numerous pelvic calcifications without a convincing distal ureteral stone. -Dietary modifications -Increase water intake, add lemon to water -Keep scheduled appt 07/12/24 with KUB 2. Kidney stones (N20.0: Calculus of kidney) Cysto/laser lithotripsy 04/12/[address] Shepherd. ESWL 08/26/[address] Shepherd. Cysto/R RGP/R ESWL/R stent placement 06/29/23. Stone analysis 03/20/23 - 100% Di Ca Ox CT AP wo con 08/12/23 TBH - Bilateral nonobstructing subcentimeter renal calculi measuring up to 5mm in RSP. KUB 10/08/23 shows bilateral nephrolithiasis. -See #1 3. Anticoagulated (Z79.01: FPC (current) use of anticoagulants) Warfarin for A-fib. Elevated risk for periop complications. The patient had the distal ureteral calculus treated by Dr. Santacruz with laser lithotripsy and stent. Current x-ray demonstrates small bilateral calculi according to the radiologist. Difficult to see upon my review. CT results from July are as noted above. We went over the results of the 24-hour urine and metabolic workup demonstrating low urine volume even though she constantly drinks. Citrate level is within normal range but on the low side. I recommended lemonade to increase both fluid intake and citrate administration. Continued close follow-up indicated we will see her back in 1 year with a KUB Follow-up With When Contact Information CORA AGUIAR, Williams P, URL [address] [address]- Additional Instructions: 06/2024 with KUB Patient Education Dietary Guidelines to Help Prevent Kidney Stones I, Charisse Rutherford, personally scribed for Dr. Shepherd on 10/14/2023 09:33:56. Electronically signed by (more content not included)... [facility] Comment on above: Result Comment: Elec tronically Signed By: Williams SHEPHERD MD\.br\Date and Time Signed: 10/14/23 09:38 EDT\.br\Electronically Co-Signed By: Charisse Rutherford\.br\Date and Time Co-Signed: 10/14/23 09:34 EDT RAD - MISCon 10-10-2023 RAD - MISC [id number] .00TIFF [facility] Lab Reportson 08-27-2023 Lab Reports [id number]#1 .00TIFF [facility] Lab Reportson 08-25-2023 Lab Reports [id number]#1 .00TIFF [facility] Lab Reports [id number]#1 .00TIFF [facility] Lab Reportson 08-22-2023 Lab Reports [id number]#1 .00TIFF [facility] Lab Reportson 08-21-2023 Lab Reports [id number] .00TIFF [facility] Lab Reports [id number]#1 .00TIFF [facility] ALL BUNon 08-20-2023 Urea nitrogen [Mass/Vol] 12.0 mg/dL 7.0 - 18.0 mg/dL [facility] ALL CARBON DIOXIDEon CO2 [Moles/Vol] 30.1 mmol/L 21.0 - 32.0 mmol/L [facility] ALL CHLORIDEon 08-20-2023 Chloride [Moles/Vol] 104 mmol/L 98 - 107 mmol/L [facility] ALL PHOSPHOROUSon 08-20-2023 Phosphate [Mass/Vol] 4.1 mg/dL 2.6 - 4.7 mg/dL [facility] ALL SODIUMon 08-20-2023 Sodium [Moles/Vol] 141 mmol/L 136 - 145 mmol/L [facility] ALL URIC ACIDon 08-20-2023 Urate [Mass/Vol] 4.4 mg/dL 2.6 - 6.0 mg/dL [facility] CALCIUMon 08-20-2023 Calcium [Mass/Vol] 9.1 mg/dL 8.5 - 10.1 mg/dL [facility] No Panel Informationon 08-20 [facility] CREATININEon 08-20-2023 Creatinine [Mass/Vol] 0.86 mg/dL 0.55 - 1.02 mg/dL [facility] GFR/1.73 sq M.predicted CKD-EPI (S/P/Bld) [Vol rate/Area] >60 60 - PINF [facility] EGFR-NON AF LEBANESE >60 60 - PINF [facility] Consent for Procedure/Surger yon 08-15-2023 Consent for Procedure/Surgery [id number]#1 .00TIFF Normal [facility] ED Note-Physicianon 08-15-19 ED Note-Physician [id number]#1. 00TIFF Normal [facility] Lab Reportson 08-15-2023 Lab Reports [id number]#1. 00TIFF Normal [facility] Lab Reports [id number]#1 .00TIFF Normal [facility] Lab Reports [id number]#1 .00TIFF Normal [facility] Operative Reporton Operative Report [id number]#1 .00TIFF Normal [facility] RAD - CT Reporton 08-15-2023 RAD - CT Report [id number]#1. 00TIFF Normal [facility] Ambulatory Visit Summaryon 0 08-13-2023 Ambulatory [...] AGUIAR, Williams Venegas Where: [facility] Ju Normal [address] 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 \.br\ Any problems you or [...] you to take them.\.br\ ? \.br\ Taking xgei-lkd-nbdeify medicines, vitamins, herbs, and supplements.\.br \ Eating [...] You may also have tests, such [facility] Patient Educationon 08-13-19 Patient Education Nephrology [...] including vitamins, herbs, eye drops, creams, and yxzf-mgq-snpnvfl medicines. ? Any problems you or family [...] tells you to take them. ? Taking ifcb-rln-fryatds medicines, vitamins, herbs, and supplements. Eating and [...] pieces (more content not included)... Normal [facility] Urology Office/Clinic Noteon 08-13-2023 Urology Office/Clinic Note Chief Complaint Patient is here for follow up to [facility] HPI Staff Patient is here for f/u to [facility] on 08/12/23 due to distal right [...] Hydronephrosis with renal and ureteral calculous obstruction) [facility] ER visit 08/12/23 due to R flank [...] abdominal pain) See #1 4. 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 States she did not take this last night. Advised pt not to take her dose today either. Follow-up With When Contact Information ANGELITO AGUIAR, Renato Arzola, URL [facility] [address] [place] [phone] Additional Instructions: sched ureteroscopy f/u w/ [facility] scheduled 10/14/23 Patient Education Laser Therapy for Kidney Stones Channing, Amy Gallagher, personally scribed for Dr. Santacruz on 08/13/2023 11:35:03. . Documentation recorded by the scribe, Amy Gallagher, accurately reflects the services(s) I performed and decisions made by me. Authenticated by Dr. Santacruz on 08/13/2023 11:37:02. Problem List/Past Medical History Ongoi (more content not included)... Normal [facility] Comment on above: Result Comment: Elec tronically Signed By: Renato SANTACRUZ MD\.br\Date and Time Signed: 08/13/23 11:37 EST\.br\Electronically Co-Signed By: Amy Gallagher\.br\Date and Time Co-Signed: 08/13/23 11:35 EST COVID/FLU/RSV RT-PCRon 07-25 SARS-CoV-2 (COVID-19) RNA TREASURE+probe Ql (Unsp spec) Negative [facility] Other COVID/FLU/RSV RT-PCR Negative [facility] [employer] Other COVID/FLU/RSV RT-PCR Positive [facility] Other Calculus Analysison 03-27-20 23 Calcium oxalate dihydrate Infrared spectroscopy (Stone) [Mass fraction] 100 % Invalid Interpretation Code [facility] Comment on above: Performed By: #### 1 [id number] ####[facility] [address] [place] [address] Color (Stone) Roper Invalid Interpretation Code [facility] Comment on above: Performed By: #### 1 [id number] ####[facility] [address] [place] [address] Composition Comment Invalid Interpretation Code [facility] Comment on above: Result Comment: Perc entage (Represents the % composition) Performed By: #### 1 [id number] ####[facility] [address] [place] [address] Disclaimer: Comment Invalid Interpretation Code [facility] Comment on above: Result Comment: This test was developed and its performance characteristics determined by [facility]. It has not been cleared or approved by the Food and Drug Administration. Performed at: [facility] [address] [id number] PhD Silvestre Esquivel Performed By: #### 1 [id number] ####[facility] [address] [place] [address] Laboratory comment Noam (Report) Comment Invalid Interpretation Code [facility] Comment on above: Result Comment: Coco goode questions regarding Calculi Analysis contact [facility] at: [phone]. Performed By: #### 1 [id number] ####[address] [address] Please Note: Comment Invalid Interpretation Code [facility] Comment on above: Result Comment: Calc javier report will follow via computer, mail or hospital sales representative delivery. Performed By: #### 1 [id number] ####[address] [place] [address] Size (Stone) [Entitic vol] 6x4 Invalid Interpretation Code [facility] Comment on above: Result Comment: Sing le piece received. Performed By: #### 1 [id number] ####[address] [place] [address] Specimen source subject Nom Comment Invalid Interpretation Code [facility] Comment on above: Result Comment: Not provided Performed By: #### 1 [id number] ####[facility] [address] [place] [address] Stone Photo Comment Invalid Interpretation Code [facility] Comment on above: Result Comment: Phot ograph will follow under a separate cover Performed By: #### 1 [id number] ####[facility] [address] [place] [address] Weight (Stone) 49 mg Invalid Interpretation Code [facility] Comment on above: Performed By: #### 1 [id number] ####[facility] [address] [place] [address] Lab Reportson 03-27-2023 Lab Reports [id number]. 00CD:127 Normal [facility] Activated partial thrombopla stin time (aPTT) in platelet poor plasma by coagulation aOrdered By: Williams Shepherd on 03-26-2023 aPTT Coag (PPP) [Time] 35.9 s 25.1-36.5 [facility] Comment on above: A hematocrit value g reater than 55% may lead to inaccurate results in coagulation testing. Patients having hematocrit values >55% require a special collection tube for coagulation studies. Please contact the laboratory at [phone] for redraw instructions. Basic Metabolic Panelon 03-14 Anion gap [Moles/Vol] 13.0 mmol/L Normal 6.0-15.0 [facility] Comment on above: Performed By: #### P T, BMP, CBC, PTT #### [facility] [address] [place] [address] Calcium [Mass/Vol] 10.0 mg/dL Normal 8.6-10.3 [facility] Comment on above: Result Comment: PERF ORMED BY: [place] [address] PATHOLOGIST BRIEFCASE SEWER BERNIE GRAYSON M.D. Performed By: #### P T, BMP, CBC, PTT #### [facility] [address] Chloride [Moles/Vol] 104 mmol/L Normal 98-107 [facility] Comment on above: Performed By: #### P T, BMP, CBC, PTT #### [facility] [address] [place] [id number] [place] CO2 [Moles/Vol] 30.0 mmol/L Normal 21.0-31.0 [facility] Comment on above: Performed By: #### P T, BMP, CBC, PTT #### [facility] [address] [place] [address] [place] Creatinine [Mass/Vol] 0.85 mg/dL Normal 0.60-1.20 [facility] Comment on above: Performed By: #### P T, BMP, CBC, PTT #### [facility] [address] GFR/1.73 sq M.predicted MDRD (S/P/Bld) [Vol rate/Area] mL/min/{1.73_m2} Normal [facility] Comment on above: Performed By: #### P T, BMP, CBC, PTT #### [facility] [address] Glucose [Mass/Vol] 111 mg/dL High 70-100 [facility] Comment on above: Result Comment: [place] Glucose Reference Range is dependent on time and content of last meal. Glucose of more than 200 mg/dL in a nonstressed, ambulatory subject supports the diagnosis of Diabetes Mellitus. ADA recommended reference range Performed By: #### P T, BMP, CBC, PTT #### [facility] [address] Potassium [Moles/Vol] 5.0 mmol/L Normal 3.5-5.1 [facility] Comment on above: Performed By: #### P T, BMP, CBC, PTT #### [address] Sodium [Moles/Vol] 142 mmol/L Normal 136-145 [facility] Comment on above: Performed By: #### P T, BMP, CBC, PTT #### [facility] [address] Urea nitrogen [Mass/Vol] 12 mg/dL Normal 7-25 [facility] Comment on above: Performed By: #### P T, BMP, CBC, PTT #### [facility] [address] Basophils Auto (Bld) [#/Vol] Ordered By: Williams Shepherd on 03-26-2023 Basophils (Bld) [#/Vol] 0.0 10*3/uL 0.0-0.2 [facility] Basophils/100 WBC Auto (Bld) Ordered By: Williams Shepherd on 03-26-2023 Basophils/100 WBC (Bld) 0.8 % . [facility] Calcium [Mass/volume] in Ser um or PlasmaOrdered By: Williams Shepherd on 03-26-2023 Calcium [Mass/Vol] 10.0 mg/dL 8.6-10.3 [facility] Carbon dioxide, total [Moles /volume] in Serum or PlasmaOrdered By: Williams Shepherd on 03-26-2023 CO2 [Moles/Vol] 30.0 mmol/L 21.0-31.0 [facility] Chloride [Moles/volume] in S fartun or PlasmaOrdered By: Williams Shepherd on 03-26-2023 Chloride [Moles/Vol] 104 mmol/L 98-107 [facility] Complete Blood Count Auto Di ffon 03-26-2023 Basophils (Bld) [#/Vol] 0.0 10*3/uL Normal 0.0-0.2 [facility] Comment on above: Result Comment: PERF ORMED BY: [place] [address] PATHOLOGIST BRIEFCASE SEWER BERNIE GRAYSON M.D. Performed By: #### P T, BMP, CBC, PTT #### [address] Basophils/100 WBC (Bld) 0.8 % Normal . [facility] Comment on above: Performed By: #### P T, BMP, CBC, PTT #### [facility] [address] [place] [address] [place] Eosinophils (Bld) [#/Vol] 0.3 10*3/uL Normal 0.0-0.45 [facility] Comment on above: Performed By: #### P T, BMP, CBC, PTT #### [place] [address] [place] Eosinophils/100 WBC (Bld) 4.3 % Normal . [facility] Comment on above: Performed By: #### P T, BMP, CBC, PTT #### [place] [address] [place] Erythrocyte distribution width (RBC) [Ratio] 14.8 % Normal 11.9-15.3 [facility] Comment on above: Performed By: #### P T, BMP, CBC, PTT #### [address] Hematocrit (Bld) [Volume fraction] 40.3 % Normal 34.0-46.4 [facility] Comment on above: Performed By: #### P T, BMP, CBC, PTT #### [address] Hemoglobin (Bld) [Mass/Vol] 13.3 g/dL Normal 11.8-15.4 [facility] Comment on above: Performed By: #### P T, BMP, CBC, PTT #### [address] Lymphocytes (Bld) [#/Vol] 2.2 10*3/uL Normal 1.00-4.8 [facility] Comment on above: Performed By: #### P T, BMP, CBC, PTT #### [address] Lymphocytes/100 WBC (Bld) 36.9 % Normal . [facility] Comment on above: Performed By: #### P T, BMP, CBC, PTT #### [address] MCH (RBC) [Entitic mass] 31.1 pg Normal 24.7-34.3 [facility] Comment on above: Performed By: #### P T, BMP, CBC, PTT #### [address] MCV (RBC) [Entitic vol] 94.4 fL Normal 80-100 [facility] Comment on above: Performed By: #### P T, BMP, CBC, PTT #### [address] Mean Corpuscular HGB Conc 32.9 g/dL Normal 32.0-35.0 [facility] Comment on above: Performed By: #### P T, BMP, CBC, PTT #### [facility] [address] Monocytes (Bld) [#/Vol] 0.5 10*3/uL Normal 0.0-0.8 [facility] Comment on above: Performed By: #### P T, BMP, CBC, PTT #### [address] Monocytes/100 WBC (Bld) 7.8 % Normal . [facility] Comment on above: Performed By: #### P T, BMP, CBC, PTT #### [address] Neutrophils (Bld) [#/Vol] 3.0 10*3/uL Normal 1.8-7.7 [facility] Comment on above: Performed By: #### P T, BMP, CBC, PTT #### [address] Neutrophils/100 WBC (Bld) 50.2 % Normal . [facility] Comment on above: Performed By: #### P T, BMP, CBC, PTT #### [facility] [address] [place] [address] NRBC% 0.3 /100{WBC} Normal 0-0.5 [facility] Comment on above: Performed By: #### P T, BMP, CBC, PTT #### [facility] [address] [place] [address] Platelet mean volume (Bld) [Entitic vol] 7.1 fL Normal 6.3-10.7 [facility] Comment on above: Performed By: #### P T, BMP, CBC, PTT #### [facility] [address] [place] [address] [place] Platelets (Bld) [#/Vol] 363 10*3/uL Normal 150-450 [facility] Comment on above: Performed By: #### P T, BMP, CBC, PTT #### [facility] [address] [place] [address] [place] RBC (Bld) [#/Vol] 4.27 10*6/uL Normal 3.60-5.00 [facility] Comment on above: Performed By: #### P T, BMP, CBC, PTT #### [facility] [address] WBC (Bld) [#/Vol] 5.9 10*3/uL Normal 3.8-11.6 [facility] Comment on above: Performed By: #### P T, BMP, CBC, PTT #### [facility] [address] [place] [address] Creatinine [Mass/volume] in Serum or PlasmaOrdered By: Williams Shepherd on 03-26-2023 Creatinine [Mass/Vol] 0.85 mg/dL 0.60-1.20 [facility] ECG 12 lead ECGon 03-26-2023 ECG 12 lead ECG [facility] [place] [address] [place] [address] Electrocardiograph Report Signed Patient: Wilda Sen MR#: [id number] 8 : 1945 Acct:[id number] Age/Sex: 77 / F ADM Date: 03/26/23 Loc: Room: Type: [facility] Attending Dr: Williams Shepherd MD Ordering Provider: [...] Whitehead DO 03/26 190 Normal [facility] Eosinophils Auto (Bld) [#/Vo l]Ordered By: Williams Shepherd on 09-13-2023 Eosinophils (Bld) [#/Vol] 0.3 10*3/uL 0.0-0.45 [facility] Eosinophils/100 WBC Auto (Bl d)Ordered By: Williams Shepherd on 03-26-2023 Eosinophils/100 WBC (Bld) 4.3 % . [facility] Erythrocyte distribution wid th Auto (RBC) [Ratio]Ordered By: Williams Shepherd on 03-26-2023 Erythrocyte distribution width (RBC) [Ratio] 14.8 % 11.9-15.3 [facility] Glucose [Mass/volume] in Ser um or PlasmaOrdered By: Williams Shepherd on 03-26-2023 Glucose [Mass/Vol] 111 mg/dL 70-100 [facility] Comment on above: ADA recommended refe rence rangeRandom Glucose Reference Range is dependent on time and content of last meal. Glucose of more than 200 mg/dL in a nonstressed, ambulatory subject supports the diagnosis of Diabetes Mellitus. Hematocrit Auto (Bld) [Volum e fraction]Ordered By: Williams Shepherd on 03-26-2023 Hematocrit (Bld) [Volume fraction] 40.3 % 34.0-46.4 [facility] Hemoglobin [Mass/volume] in BloodOrdered By: Williams Shepherd on 03-26-2023 Hemoglobin (Bld) [Mass/Vol] 13.3 g/dL 11.8-15.4 [facility] INR in Platelet poor plasma by Coagulation assayOrdered By: Williams Shepherd on 03-26-2023 INR Coag (PPP) [Relative time] 2.3 {INR} [facility] Comment on above: INR Therapeutic Rang [...] 10*3/uL 3.8-11.6 [facility] Lymphocytes Auto (Bld) [#/Vo l]Ordered By: Williams Shepherd on 03-26-2023 Lymphocytes (Bld) [#/Vol] 2.2 10*3/uL 1.00-4.8 [facility] Lymphocytes/100 WBC Auto (Bl d)Ordered By: Williams Shepherd on 03-26-2023 Lymphocytes/100 WBC (Bld) 36.9 % . [facility] MCH Auto (RBC) [Entitic mass ]Ordered By: Williams Shepherd on 03-26-2023 MCH (RBC) [Entitic mass] 31.1 pg 24.7-34.3 [facility] MCHC Auto (RBC) [Mass/Vol]Or dered By: Williams Shepherd on 03-26-2023 MCHC (RBC) [Mass/Vol] 32.9 g/dL 32.0-35.0 [facility] MCV Auto (RBC) [Entitic vol] Ordered By: Williams Shepherd on 03-26-2023 MCV (RBC) [Entitic vol] 94.4 fL 80-100 [facility] Monocytes Auto (Bld) [#/Vol] Ordered By: Williams Shepherd on 03-26-2023 Monocytes (Bld) [#/Vol] 0.5 10*3/uL 0.0-0.8 [facility] Monocytes/100 WBC Auto (Bld) Ordered By: Williams Shepherd on 03-26-2023 Monocytes/100 WBC (Bld) 7.8 % . [facility] Neutrophils Auto (Bld) [#/Vo l]Ordered By: Williams Shepherd on 03-26-2023 Neutrophils (Bld) [#/Vol] 3.0 10*3/uL 1.8-7.7 [facility] Neutrophils/100 WBC Auto (Bl d)Ordered By: Williams Shepherd on 03-26-2023 Neutrophils/100 WBC (Bld) 50.2 % . [facility] No Panel InformationOrdered By: Williams Shepherd on 03-26-2023 Estimated GFR (CKD-EPI) > 60.0 mL/Min [facility] Creatinine Clearance (Chem N/A [facility] Nucleated erythrocytes [Pres ence] in Blood by Automated countOrdered By: Williams Shepherd on 03-26-2023 Nucleated RBC Auto Ql (Bld) 0.3 /100{WBC} 0-0.5 [facility] Partial Thromboplastin Timeo n 03-26-2023 aPTT Coag (Bld) [Time] 35.9 s Normal 25.1-36.5 [facility] Comment on above: Result Comment: A he matocrit value greater than 55% may lead to inaccurate results in coagulation testing. Patients having hematocrit values >55% require a special collection tube for coagulation studies. Please contact the laboratory at [phone] for redraw instructions. PERFORMED BY: [place] [address] PATHOLOGIST BRIEFCASE SEWER BERNIE GRAYSON M.D. Performed By: #### P T, BMP, CBC, PTT #### [address] Platelet mean volume Auto (B ld) [Entitic vol]Ordered By: Williams Shepherd on 03-26-2023 Platelet mean volume (Bld) [Entitic vol] 7.1 fL 6.3-10.7 [facility] Platelets Auto (Bld) [#/Vol] Ordered By: Williams Shepherd on 03-26-2023 Platelets (Bld) [#/Vol] 363 10*3/uL 150-450 [facility] Potassium [Moles/volume] in Serum or PlasmaOrdered By: Williams Shepherd on 03-26-2023 Potassium [Moles/Vol] 5.0 mmol/L 3.5-5.1 [facility] Prothrombin Time INRon 03-26 INR Coag (PPP) [Relative time] 2.3 {INR} Normal [facility] Comment on above: Result Comment: INR [...] #### P T, BMP, CBC, PTT #### [facility] [address] [place] [address] [place] PT Coag (PPP) [Time] 26.6 s High 9.0-12.9 [facility] Comment on above: Result Comment: A he matocrit value greater than 55% may lead to inaccurate results in coagulation testing. Patients having hematocrit values >55% require a special collection tube for coagulation studies. Please contact the laboratory at [phone] for redraw instructions. Performed By: #### P T, BMP, CBC, PTT #### [facility] [address] [place] [address] [facility] Prothrombin time (PT)Ordered By: Williams Shepherd on 03-26-2023 PT Coag (PPP) [Time] 26.6 s 9.0-12.9 [facility] Comment on above: A hematocrit value g reater than 55% may lead to inaccurate results in coagulation testing. Patients having hematocrit values >55% require a special collection tube for coagulation studies. Please contact the laboratory at [phone] for redraw instructions. RBC Auto (Bld) [#/Vol]Ordere d By: Williams Shepherd on 03-26-2023 RBC (Bld) [#/Vol] 4.27 10*6/uL 3.60-5.00 [facility] Serum or plasma anion gap de terminationOrdered By: Williams Shepherd on 03-26-2023 Anion gap [Moles/Vol] 13.0 mmol/L 6.0-15.0 [facility] Sodium [Moles/volume] in Ser um or PlasmaOrdered By: Williams Shepherd on 03-26-2023 Sodium [Moles/Vol] 142 mmol/L 136-145 [facility] Urea nitrogen [Mass/volume] in Serum or PlasmaOrdered By: Williams Shepherd on 03-26-2023 Urea nitrogen [Mass/Vol] 12 mg/dL 7-25 [facility] WBC Auto (Bld) [#/Vol]Ordere d By: Williams Shepherd on 03-26-2023 WBC (Bld) [#/Vol] 5.9 10*3/uL 3.8-11.6 [facility] Consultation Noteon 03-17-20 Consultation Note [id number]#1 .00CD:127 [facility] Lab Reportson 02-12-2023 Lab Reports [id number]#1 .00CD:127 [facility] RAD - MISCon 02-12-2023 RAD - MISC [id number]#1 .00CD:127 [facility] RAD - CT Reporton 02-05-2023 RAD - CT Report [id number]#1 .00CD:127 [facility] RAD - MISCon 02-05-2023 RAD - MISC [id number]#1 .00CD:127 [facility] Ambulatory Visit Summaryon 0 02-03-2023 Ambulatory Visit Summary BOBBI SENRA Hazel :1945 Visit Date:02/03/2023 Ambulatory Visit Instructions Your [...] AGUIAR, Williams Venegas Where: [facility] Patient Educationon 02-04-20 Patient Education [...] these instructions at home: Medicines ? Take tvub-fqh-elklriz and prescription medicines only as told by [...] 16 month follow up w/ CT scan [facility] Staff Pt is here today for 16 month follow up w/ CT scan done @[facility] on 01/15/23. CT scan shows partially obstructing [...] MD, URL [address] [address]- Additional Instructions: Patient Education Kidney Stones I, Fanny Bowen, personally scribed for Dr. Shepherd on 02/03/2023 12:04:03. . Documentation recorded by the scribe, Fanny Bowen, accurately reflects the services(s) I performed and decisions made by me. Authenticated by Dr. Shepherd on 02/03/2023 12:37:35. Portions of this record may have been created with voice recognition artificial intelligence software, specifically [employer]ug[employer], [employer] and or [email or web address]. Substitutions may have occurred due to the inherent limitations of voice recognition and artificial intelligence software. 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 Normal [facility] Comment on above: Result Comment: Elec tronically Signed By: Williams SHEPHERD MD\.br\Date and Time Signed: 02/03/23 12:39 EDT\.br\Electronically Co-Signed By: Fanny Bowen\.br\Date and Time Co-Signed: 02/03/23 12:04 EDT PROTIMEon 12-02-2022 INR Coag (PPP) [Relative time] 3.62 {INR} Normal [facility] Comment on above: Performed By: #### P T #### [facility] [address] [place] [address] Dr. Tg Fierro INR GUIDELINES SEE BELOW Normal [facility] Comment on above: Result Comment: LAURENCE RED INR: 2.0 - 3.0 CONDITIONS NOT LISTED BELOW 2.5 - 3.5 FOR PROSTHETIC HEART VALVE REPLACEMENT 2.5 - 3.5 RECURRENT THROMBOSIS Performed By: #### P T #### [facility] [address] [place] [address] Dr. Tg Fierro PT Coag (PPP) [Time] 35.7 s Critically high 9.0-11.6 [facility] Comment on above: Performed By: #### P T #### [facility] [address] [place] [address] Dr. Tg Fierro PROTIMEon 11-11-2022 INR Coag (PPP) [Relative time] 1.90 {INR} Normal [facility] Comment on above: Performed By: #### P T #### [facility] [address] [place] [address] Dr. Tg Fierro INR GUIDELINES SEE BELOW Normal [facility] Comment on above: Result Comment: LAURENCE RED INR: 2.0 - 3.0 CONDITIONS NOT LISTED BELOW 2.5 - 3.5 FOR PROSTHETIC HEART VALVE REPLACEMENT 2.5 - 3.5 RECURRENT THROMBOSIS Performed By: #### P T #### [facility] [address] [place] [address] Dr. Tg Fierro PT Coag (PPP) [Time] 19.4 s Critically high 9.0-11.6 [facility] Comment on above: Performed By: #### P T #### [facility] [address] [place] [address] Dr. Tg Fierro CBC AUTO DIFFon 10-25-2022 BASO # 0.0 103/ul Normal 0.0-0.1 [facility] Comment on above: Performed By: #### P T #### [facility] [address] [place] [address] Dr. Tg Fierro Basophils/100 WBC (Bld) 0.5 % Normal 0.2-2.0 [facility] Comment on above: Performed By: #### P T #### [facility] [address] [place] [address] Dr. Tg Fierro EO # 0.2 103/ul Normal 0.0-0.7 [facility] Comment on above: Performed By: #### P T #### [facility] [address] [place] [address] Dr. Tg Fierro Eosinophils/100 WBC (Bld) 2.7 % Normal 0.9-7.0 [facility] Comment on above: Performed By: #### P T #### [facility] [address] [place] [address] Dr. Tg Fierro Erythrocyte distribution width (RBC) [Ratio] 13.4 % Normal 11.0-15.0 [facility] Comment on above: Performed By: #### P T #### [facility] [address] [place] [address] Dr. Tg Fierro Hematocrit (Bld) [Volume fraction] 40.7 % Normal 36.0-48.0 [facility] Comment on above: Performed By: #### P T #### [facility] [address] [place] [address] Dr. Tg Fierro Hemoglobin (Bld) [Mass/Vol] 13.2 g/dL Normal 12.0-16.0 [facility] Comment on above: Performed By: #### P T #### [facility] [address] [place] [address] Dr. Tg Fierro IG # 0.03 10e3/ul Normal 0.00-0.03 [facility] Comment on above: Performed By: #### P T #### [facility] [address] [place] [address] Dr. Tg Fierro IG % 0.5 % Normal 0.0-0.5 [facility] Comment on above: Performed By: #### P T #### [facility] [address] [place] [address] Dr. Tg Fierro LYMPH # 2.1 103/ul Normal 1.2-3.8 [facility] Comment on above: Performed By: #### P T #### [facility] [address] [place] [address] Dr. Tg Fierro Lymphocytes/100 WBC (Bld) 34.9 % Normal 20.5-60.0 [facility] Comment on above: Performed By: #### P T #### [facility] [address] [place] [address] Dr. Tg Fierro MANUAL DIFF REQ NO Normal [facility] Comment on above: Performed By: #### P T #### [facility] [address] [place] [address] Dr. Tg Fierro MCH (RBC) [Entitic mass] 30.5 pg Normal 26.7-34.0 [facility] Comment on above: Performed By: #### P T #### [facility] [address] [place] [address] Dr. Tg Fierro MCHC (RBC) [Mass/Vol] 32.4 g/dL Normal 29.9-35.2 [facility] Comment on above: Performed By: #### P T #### [facility] [address] [place] [address] Dr. Tg Fierro MCV (RBC) [Entitic vol] 94.0 fL Normal 81.0-99.0 [facility] Comment on above: Performed By: #### P T #### [facility] [address] [place] [address] Dr. gT Fierro MONO # 0.4 103/ul Normal 0.3-0.8 [facility] Comment on above: Performed By: #### P T #### [facility] [address] [place] [address] Dr. Tg Fierro Monocytes/100 WBC (Bld) 7.1 % Normal 1.7-12.0 [facility] Comment on above: Performed By: #### P T #### [facility] [address] [place] [address] Dr. Tg Fierro NEUT # 3.2 103/ul Normal 1.4-6.5 [facility] Comment on above: Performed By: #### P T #### [facility] [address] [address] [address] Tg Fierro Neutrophils/100 WBC (Bld) 54.3 % Normal 43.0-75.0 [facility] Comment on above: Performed By: #### P T #### [facility] [address] [place] [address] Dr. Tg Fierro Platelet mean volume (Bld) [Entitic vol] 8.7 fL Critically low 9.5-13.5 [facility] Comment on above: Performed By: #### P T #### [facility] [address] [address] [address] Tg Fierro PLT 295 103/ul Normal 150-450 [facility] Comment on above: Performed By: #### P T #### [facility] [address] [place] [address] Dr. Tg Fieror RBC 4.33 106/ul Normal 4.20-5.40 [facility] Comment on above: Performed By: #### P T #### [facility] [address] [place] [address] Dr. Tg Fierro WBC 5.9 103/ul Normal 4.0-11.0 [facility] Comment on above: Performed By: #### P T #### [facility] [address] [place] [address] Dr. Tg Fierro PROF 14(COMP METB)on 023 Albumin [Mass/Vol] 3.8 g/dL Normal 3.4-5.0 [facility] Comment on above: Performed By: #### C MP #### [facility] [address] [place] [address] Dr. Tg Fierro Albumin/Globulin [Mass ratio] 1.2 {ratio} Normal [facility] Comment on above: Performed By: #### C MP #### [facility] [address] [place] [address] Dr. Tg Fierro ALP [Catalytic activity/Vol] 49 U/L Normal 46-116 [facility] Comment on above: Performed By: #### C MP #### [facility] [address] [address] [address] Tg Fierro ALT [Catalytic activity/Vol] 21 U/L Normal 14-59 [facility] Comment on above: Performed By: #### C MP #### [facility] [address] [address] [address] Tg Fierro Anion gap [Moles/Vol] 13.3 mmol/L Normal [facility] Comment on above: Performed By: #### C MP #### [facility] [address] [address] [address] Tg Fierro AST [Catalytic activity/Vol] 14 U/L Critically low 15-37 [facility] Comment on above: Performed By: #### C MP #### [facility] [address] [address] [address] Tg Fierro Bilirubin [Mass/Vol] 0.5 mg/dL Normal 0.2-1.0 [facility] Comment on above: Performed By: #### C MP #### [facility] [address] [address] [address] Tg Fierro Calcium [Mass/Vol] 9.5 mg/dL Normal 8.5-10.1 [facility] Comment on above: Performed By: #### C MP #### [facility] [address] [address] [address] Tg Fierro Chloride [Moles/Vol] 104 mmol/L Normal 98-107 [facility] Comment on above: Performed By: #### C MP #### [facility] [address] [address] [address] Tg Fierro CO2 [Moles/Vol] 29.3 mmol/L Normal 21.0-32.0 [facility] Comment on above: Performed By: #### C MP #### [facility] [address] [address] [address] Tg Fierro Creatinine [Mass/Vol] 0.93 mg/dL Normal 0.55-1.02 [facility] Comment on above: Performed By: #### C MP #### [facility] [address] [address] [address] Tg Fierro EGFR-AF LEBANESE >60 Normal >=[address] [facility] Comment on above: Performed By: #### C MP #### [facility] [address] [address] [address] Tg Fierro EGFR-NON AF LEBANESE 59 mL/min/1.73m2 Critically low >=60 [facility] Comment on above: Performed By: #### C MP #### [facility] [address] [address] [address] Tg Fierro Globulin (S) [Mass/Vol] 3.2 g/dL Normal [facility] Comment on above: Performed By: #### C MP #### [facility] [address] [address] [address] Tg Fierro Glucose [Mass/Vol] 186 mg/dL Critically high 74-106 [facility] Comment on above: Performed By: #### C MP #### [facility] [address] [address] [address] Tg Fierro Potassium [Moles/Vol] 4.6 mmol/L Normal 3.5-5.1 [facility] Comment on above: Performed By: #### C MP #### [facility] [address] [place] [address] Dr. Tg Fierro Protein [Mass/Vol] 7.0 g/dL Normal 6.4-8.2 [facility] Comment on above: Performed By: #### C MP #### [facility] [address] [address] [address] Tg Fierro Sodium [Moles/Vol] 142 mmol/L Normal 136-145 [facility] Comment on above: Performed By: #### C MP #### [facility] [address] [address] [address] Tg Fierro Urea nitrogen [Mass/Vol] 15.0 mg/dL Normal 7.0-18.0 [facility] Comment on above: Performed By: #### C MP #### [facility] [address] [place] [address] Dr. Tg Fierro Urea nitrogen/Creatinine [Mass ratio] 16.1 mg/mg Normal [facility] Comment on above: Performed By: #### C MP #### [facility] [address] [place] [address] Dr. Tg Fierro SED RATE WESTERGRENon 2022 SED RATE 9 mm/hr Normal <=30 [facility] Comment on above: Performed By: #### C MP #### [facility] [address] [place] [address] Dr. Tg Fierro PROTIMEon 10-14-2022 INR Coag (PPP) [Relative time] 1.94 {INR} Normal [facility] Comment on above: Performed By: #### P T #### [facility] [address] [place] [address] Dr. Tg Fierro INR GUIDELINES SEE BELOW Normal [facility] Comment on above: Result Comment: LAURENCE RED INR: 2.0 - 3.0 CONDITIONS NOT LISTED BELOW 2.5 - 3.5 FOR PROSTHETIC HEART VALVE REPLACEMENT 2.5 - 3.5 RECURRENT THROMBOSIS Performed By: #### P T #### [facility] [address] [place] [address] Dr. Tg Fierro PT Coag (PPP) [Time] 19.8 s Critically high 9.0-11.6 [facility] Comment on above: Performed By: #### P T #### [facility] [address] [place] [address] Dr. Tg Fierro CBC AUTO DIFFon 09-24-2022 BASO # 0.1 103/ul Normal 0.0-0.1 [facility] Comment on above: Performed By: #### P T #### [facility] [address] [place] [address] Dr. Tg Fierro Basophils/100 WBC (Bld) 0.7 % Normal 0.2-2.0 [facility] Comment on above: Performed By: #### P T #### [facility] [address] [place] [address] Dr. gT Fierro EO # 0.3 103/ul Normal 0.0-0.7 [facility] Comment on above: Performed By: #### P T #### [facility] [address] [address] [address] Tg Fierro Eosinophils/100 WBC (Bld) 3.6 % Normal 0.9-7.0 [facility] Comment on above: Performed By: #### P T #### [facility] [address] [address] [address] Tg Fierro Erythrocyte distribution width (RBC) [Ratio] 13.4 % Normal 11.0-15.0 [facility] Comment on above: Performed By: #### P T #### [facility] [address] [address] [address] Tg Fierro Hematocrit (Bld) [Volume fraction] 38.4 % Normal 36.0-48.0 [facility] Comment on above: Performed By: #### P T #### [facility] [address] [place] [address] Dr. Tg Fierro Hemoglobin (Bld) [Mass/Vol] 12.7 g/dL Normal 12.0-16.0 [facility] Comment on above: Performed By: #### P T #### [facility] [address] [place] [address] Dr. Tg Fierro IG # 0.05 10e3/ul Critically high 0.00-0.03 [facility] Comment on above: Performed By: #### P T #### [facility] [address] [address] [address] Tg Fierro IG % 0.7 % Critically high 0.0-0.5 [facility] Comment on above: Performed By: #### P T #### [facility] [address] [address] [address] Tg Fierro LYMPH # 2.6 103/ul Normal 1.2-3.8 [facility] Comment on above: Performed By: #### P T #### [facility] [address] [place] [address] Dr. Tg Fierro Lymphocytes/100 WBC (Bld) 34.2 % Normal 20.5-60.0 [facility] Comment on above: Performed By: #### P T #### [facility] [address] [place] [address] Dr. Tg Fierro MANUAL DIFF REQ NO Normal [facility] Comment on above: Performed By: #### P T #### [facility] [address] [place] [address] Dr. Tg Fierro MCH (RBC) [Entitic mass] 31.2 pg Normal 26.7-34.0 [facility] Comment on above: Performed By: #### P T #### [facility] [address] [place] [address] Dr. Tg Fierro MCHC (RBC) [Mass/Vol] 33.1 g/dL Normal 29.9-35.2 [facility] Comment on above: Performed By: #### P T #### [facility] [address] [place] [address] Dr. Tg Fierro MCV (RBC) [Entitic vol] 94.3 fL Normal 81.0-99.0 [facility] Comment on above: Performed By: #### P T #### [facility] [address] [place] [address] Dr. Tg Fierro MONO # 0.6 103/ul Normal 0.3-0.8 [facility] Comment on above: Performed By: #### P T #### [facility] [address] [place] [address] Dr. Tg Fierro Monocytes/100 WBC (Bld) 8.1 % Normal 1.7-12.0 [facility] Comment on above: Performed By: #### P T #### [facility] [address] [place] [address] Dr. Tg Fierro NEUT # 4.1 103/ul Normal 1.4-6.5 [facility] Comment on above: Performed By: #### P T #### [facility] [address] [place] [address] Dr. Tg Fierro Neutrophils/100 WBC (Bld) 52.7 % Normal 43.0-75.0 [facility] Comment on above: Performed By: #### P T #### [facility] [address] [place] [address] Dr. Tg Fierro Platelet mean volume (Bld) [Entitic vol] 8.7 fL Critically low 9.5-13.5 [facility] Comment on above: Performed By: #### P T #### [facility] [address] [place] [address] Dr. Tg Fierro PLT 278 103/ul Normal 150-450 [facility] Comment on above: Performed By: #### P T #### [facility] [address] [place] [address] Dr. Tg Fierro RBC 4.07 106/ul Critically low 4.20-5.40 [facility] Comment on above: Performed By: #### P T #### [facility] [address] [place] [address] Dr. Tg Fierro WBC 7.7 103/ul Normal 4.0-11.0 [facility] Comment on above: Performed By: #### P T #### [facility] [address] [place] [address] Dr. Tg Fierro PROF 14(COMP METB)on 023 Albumin [Mass/Vol] 3.9 g/dL Normal 3.4-5.0 [facility] Comment on above: Performed By: #### C MP #### [facility] [address] [place] [address] Dr. Tg Fierro Albumin/Globulin [Mass ratio] 1.4 {ratio} Normal [facility] Comment on above: Performed By: #### C MP #### [facility] [address] [place] [address] Dr. Tg Fierro ALP [Catalytic activity/Vol] 59 U/L Normal 46-116 [facility] Comment on above: Performed By: #### C MP #### [facility] [address] [place] [address] Dr. Tg Fierro ALT [Catalytic activity/Vol] 21 U/L Normal 14-59 [facility] Comment on above: Performed By: #### C MP #### [facility] [address] [address] [address] Tg Fierro Anion gap [Moles/Vol] 10.8 mmol/L Normal [facility] Comment on above: Performed By: #### C MP #### [facility] [address] [address] [address] Tg Fierro AST [Catalytic activity/Vol] 9 U/L Critically low 15-37 [facility] Comment on above: Performed By: #### C MP #### [facility] [address] [address] [address] Tg Fierro Bilirubin [Mass/Vol] 0.3 mg/dL Normal 0.2-1.0 [facility] Comment on above: Performed By: #### C MP #### [facility] [address] [address] [address] Tg Fierro Calcium [Mass/Vol] 9.1 mg/dL Normal 8.5-10.1 [facility] Comment on above: Performed By: #### C MP #### [facility] [address] [place] [address] Dr. Tg Fierro Chloride [Moles/Vol] 104 mmol/L Normal 98-107 [facility] Comment on above: Performed By: #### C MP #### [facility] [address] [address] [address] Tg Fierro CO2 [Moles/Vol] 28.3 mmol/L Normal 21.0-32.0 [facility] Comment on above: Performed By: #### C MP #### [facility] [address] [address] [address] Tg Fierro Creatinine [Mass/Vol] 0.86 mg/dL Normal 0.55-1.02 [facility] Comment on above: Performed By: #### C MP #### [facility] [address] [address] [address] Tg Fierro EGFR-AF LEBANESE >60 Normal >=60 [facility] Comment on above: Performed By: #### C MP #### [facility] [address] [address] [address] Tg Fierro EGFR-NON AF LEBANESE >60 Normal >=60 [facility] Comment on above: Performed By: #### C MP #### [facility] [address] [address] [address] Tg Fierro Globulin (S) [Mass/Vol] 2.7 g/dL Normal [facility] Comment on above: Performed By: #### C MP #### [facility] [address] [address] [address] Tg Fierro Glucose [Mass/Vol] 120 mg/dL Critically high 74-106 [facility] Comment on above: Performed By: #### C MP #### [facility] [address] [address] [address] Tg Fierro Potassium [Moles/Vol] 4.1 mmol/L Normal 3.5-5.1 [facility] Comment on above: Performed By: #### C MP #### [facility] [address] [place] [address] Dr. Tg Fierro Protein [Mass/Vol] 6.6 g/dL Normal 6.4-8.2 [facility] Comment on above: Performed By: #### C MP #### [facility] [address] [address] [address] Tg Fierro Sodium [Moles/Vol] 139 mmol/L Normal 136-145 [facility] Comment on above: Performed By: #### C MP #### [facility] [address] [address] [address] Tg Fierro Urea nitrogen [Mass/Vol] 13.0 mg/dL Normal 7.0-18.0 [facility] Comment on above: Performed By: #### C MP #### [facility] [address] [address] [address] Tg Fierro Urea nitrogen/Creatinine [Mass ratio] 15.1 mg/mg Normal [facility] Comment on above: Performed By: #### C MP #### [facility] [address] [address] [address] Tg Fierro PROTIMEon 09-24-2022 INR Coag (PPP) [Relative time] 1.35 {INR} Normal [facility] Comment on above: Performed By: #### P T #### [facility] [address] [place] [address] Dr. Tg Fierro INR GUIDELINES SEE BELOW Normal [facility] Comment on above: Result Comment: LAURENCE RED INR: 2.0 - 3.0 CONDITIONS NOT LISTED BELOW 2.5 - 3.5 FOR PROSTHETIC HEART VALVE REPLACEMENT 2.5 - 3.5 RECURRENT THROMBOSIS Performed By: #### P T #### [facility] [address] [place] [address] Dr. Tg Fierro PT Coag (PPP) [Time] 14.1 s Critically high 9.0-11.6 [facility] Comment on above: Performed By: #### P T #### [facility] [address] [place] [address] Dr. Tg Fierro SED RATE [facility] 2022 SED RATE 8 mm/hr Normal <=30 [facility] Comment on above: Performed By: #### C MP #### [facility] [address] [place] [address] Dr. Tg Fierro PROTIMEon 09-09-2022 INR Coag (PPP) [Relative time] 1.23 {INR} Normal [facility] Comment on above: Performed By: #### P T #### [facility] [address] [place] [address] Dr. Tg Fierro INR GUIDELINES SEE BELOW Normal [facility] Comment on above: Result Comment: LAURENCE RED INR: 2.0 - 3.0 CONDITIONS NOT LISTED BELOW 2.5 - 3.5 FOR PROSTHETIC HEART VALVE REPLACEMENT 2.5 - 3.5 RECURRENT THROMBOSIS Performed By: #### P T #### [facility] [address] [place] [address] Dr. Tg Fierro PT Coag (PPP) [Time] 12.9 s Critically high 9.0-11.6 [facility] Comment on above: Performed By: #### P T #### [facility] [address] [place] [address] Dr. Tg Fierro ECHOCARDIO M/2D COMPLETEon 0 09-02-2022 ECHOCARDIO M/2D COMPLETE Patient: WILDA SEN Exam Date: 09/02/2022 : 1945 Gender:F Ordering : DR JAYME PEREZ . Admission #: [id number] Family : Order #: [id number] CLICK HERE TO VIEW EXAM ECHOCARDIOGRAM REPORT [...] M.D. on 09/03/2022 at 17:25 Normal [facility] GLYCOHEMOGLOBIN A1Con 2022 ADA RECOMMENDATION SEE BELOW Normal [facility] Comment on above: Result Comment: ADA RECOMMENDED LIMIT 4.0 - 6.0 ADA THERAPEUTIC TARGET < 7.0 ACTION SUGGESTED > 7.0 Performed By: #### A 1C #### [facility] [address] [place] [address] Dr. Tg Fierro Glucose [Mass/Vol] 148 mg/dL Normal [facility] Comment on above: Performed By: #### A 1C #### [facility] [address] [place] [address] Dr. Tg Fierro HbA1c (Bld) [Mass fraction] 6.8 % Critically high 4.5-6.2 [facility] Comment on above: Performed By: #### A 1C #### [facility] [address] [place] [address] Dr. Tg Fierro CBC AUTO DIFFon 08-05-2022 BASO # 0.1 103/ul Normal 0.0-0.1 [facility] Comment on above: Performed By: #### C BC #### [facility] [address] [place] [address] Dr. Tg Fierro Basophils/100 WBC (Bld) 0.8 % Normal 0.2-2.0 [facility] Comment on above: Performed By: #### C BC #### [facility] [address] [place] [address] Dr. Tg Fierro EO # 0.5 103/ul Normal 0.0-0.7 [facility] Comment on above: Performed By: #### C BC #### [facility] [address] [place] [address] Dr. Tg Fierro Eosinophils/100 WBC (Bld) 7.3 % Critically high 0.9-7.0 [facility] Comment on above: Performed By: #### C BC #### [facility] [address] [place] [address] Dr. Tg Fierro Erythrocyte distribution width (RBC) [Ratio] 13.4 % Normal 11.0-15.0 [facility] Comment on above: Performed By: #### C BC #### [facility] [address] [place] [address] Dr. Tg Fierro Hematocrit (Bld) [Volume fraction] 37.1 % Normal 36.0-48.0 [facility] Comment on above: Performed By: #### C BC #### [facility] [address] [place] [address] Dr. Tg Fierro Hemoglobin (Bld) [Mass/Vol] 12.9 g/dL Normal 12.0-16.0 [facility] Comment on above: Performed By: #### C BC #### [facility] [address] [place] [address] Dr. Tg Fierro IG # 0.03 10e3/ul Normal 0.00-0.03 [facility] Comment on above: Performed By: #### C BC #### [facility] [address] [place] [address] Dr. Tg Fierro IG % 0.5 % Normal 0.0-0.5 [facility] Comment on above: Performed By: #### C BC #### [facility] [address] [place] [address] Dr. Tg Fierro LYMPH # 2.3 103/ul Normal 1.2-3.8 [facility] Comment on above: Performed By: #### C BC #### [facility] [address] [place] [address] Dr. Tg Fierro Lymphocytes/100 WBC (Bld) 34.9 % Normal 20.5-60.0 [facility] Comment on above: Performed By: #### C BC #### [facility] [address] [place] [address] Dr. Tg Fierro MANUAL DIFF REQ NO Normal [facility] Comment on above: Performed By: #### C BC #### [facility] [address] [place] [address] Dr. Tg Fierro MCH (RBC) [Entitic mass] 31.0 pg Normal 26.7-34.0 [facility] Comment on above: Performed By: #### C BC #### [facility] [address] [place] [address] Dr. Tg Fierro MCHC (RBC) [Mass/Vol] 34.8 g/dL Normal 29.9-35.2 [facility] Comment on above: Performed By: #### C BC #### [facility] [address] [address] [address] Tg Fierro MCV (RBC) [Entitic vol] 89.2 fL Normal 81.0-99.0 [facility] Comment on above: Performed By: #### C BC #### [facility] [address] [address] [address] Tg Fierro MONO # 0.4 103/ul Normal 0.3-0.8 [facility] Comment on above: Performed By: #### C BC #### [facility] [address] [place] [address] Dr. Tg Fierro Monocytes/100 WBC (Bld) 6.1 % Normal 1.7-12.0 [facility] Comment on above: Performed By: #### C BC #### [facility] [address] [place] [address] Dr. Tg Fierro NEUT # 3.3 103/ul Normal 1.4-6.5 [facility] Comment on above: Performed By: #### C BC #### [facility] [address] [place] [address] Dr. Tg Fierro Neutrophils/100 WBC (Bld) 50.4 % Normal 43.0-75.0 [facility] Comment on above: Performed By: #### C BC #### [facility] [address] [address] [address] Tg Fierro Platelet mean volume (Bld) [Entitic vol] 8.6 fL Critically low 9.5-13.5 [facility] Comment on above: Performed By: #### C BC #### [facility] [address] [place] [address] Dr. Tg Fierro PLT 336 103/ul Normal 150-450 [facility] Comment on above: Performed By: #### C BC #### [facility] [address] [place] [address] Dr. Tg Fierro RBC 4.16 106/ul Critically low 4.20-5.40 [facility] Comment on above: Performed By: #### C BC #### [facility] [address] [place] [address] Dr. Tg Fierro WBC 6.4 103/ul Normal 4.0-11.0 [facility] Comment on above: Performed By: #### C BC #### [facility] [address] [place] [address] Dr. Tg Fierro PROF 14(COMP METB)on 023 Albumin [Mass/Vol] 3.9 g/dL Normal 3.4-5.0 [facility] Comment on above: Performed By: #### P T #### [facility] [address] [place] [address] Dr. Tg Fierro Albumin/Globulin [Mass ratio] 1.3 {ratio} Normal [facility] Comment on above: Performed By: #### P T #### [facility] [address] [place] [address] Dr. Tg Fierro ALP [Catalytic activity/Vol] 60 U/L Normal 46-116 [facility] Comment on above: Performed By: #### P T #### [facility] [address] [place] [address] Dr. Tg Fierro ALT [Catalytic activity/Vol] 21 U/L Normal 14-59 [facility] Comment on above: Performed By: #### P T #### [facility] [address] [place] [address] Dr. Tg Fierro Anion gap [Moles/Vol] 15.2 mmol/L Normal [facility] Comment on above: Performed By: #### P T #### [facility] [address] [place] [address] Dr. Tg Fierro AST [Catalytic activity/Vol] 14 U/L Critically low 15-37 [facility] Comment on above: Performed By: #### P T #### [facility] [address] [place] [address] Dr. Tg Fierro Bilirubin [Mass/Vol] 0.4 mg/dL Normal 0.2-1.0 [facility] Comment on above: Performed By: #### P T #### [facility] [address] [address] [address] Tg Fierro Calcium [Mass/Vol] 9.3 mg/dL Normal 8.5-10.1 [facility] Comment on above: Performed By: #### P T #### [facility] [address] [address] [address] Tg Fierro Chloride [Moles/Vol] 102 mmol/L Normal 98-107 [facility] Comment on above: Performed By: #### P T #### [facility] [address] [address] [address] Tg Fierro CO2 [Moles/Vol] 26.8 mmol/L Normal 21.0-32.[address] [facility] Comment on above: Performed By: #### P T #### [facility] [address] [address] [address] Tg Fierro Creatinine [Mass/Vol] 0.74 mg/dL Normal 0.55-1.02 [facility] Comment on above: Performed By: #### P T #### [facility] [address] [address] [address] Tg Fierro EGFR-AF LEBANESE >60 Normal >=[address] [facility] Comment on above: Performed By: #### P T #### [facility] [address] [address] [address] Tg Fierro EGFR-NON AF LEBANESE >60 Normal >=60 [facility] Comment on above: Performed By: #### P T #### [facility] [address] [address] [address] Tg Fierro Globulin (S) [Mass/Vol] 3.1 g/dL Normal [facility] Comment on above: Performed By: #### P T #### [facility] [address] [address] [address] Tg Fierro Glucose [Mass/Vol] 148 mg/dL Critically high 74-106 [facility] Comment on above: Performed By: #### P T #### [facility] [address] [address] [address] Tg Fierro Potassium [Moles/Vol] 4.0 mmol/L Normal 3.5-5.1 [facility] Comment on above: Performed By: #### P T #### [facility] [address] [address] [address] Tg Fierro Protein [Mass/Vol] 7.0 g/dL Normal 6.4-8.2 [facility] Comment on above: Performed By: #### P T #### [facility] [address] [address] [address] Tg Fierro Sodium [Moles/Vol] 140 mmol/L Normal 136-145 [facility] Comment on above: Performed By: #### P T #### [facility] [address] [place] [address] Dr. Tg Fierro Urea nitrogen [Mass/Vol] 12.0 mg/dL Normal 7.0-18.0 [facility] Comment on above: Performed By: #### P T #### [facility] [address] [place] [address] Dr. Tg Fierro Urea nitrogen/Creatinine [Mass ratio] 16.2 mg/mg Normal [facility] Comment on above: Performed By: #### P T #### [facility] [address] [place] [address] Dr. Tg Fier[facility] 30 mm/hr Normal <=30 [facility] Comment on above: Performed By: #### S EDR #### [facility] [address] [address] [address] Tg Fierro CBC AUTO DIFFon 04-15-2022 BASO # 0.1 103/ul Normal 0.0-0.1 [facility] Comment on above: Performed By: #### C BC #### [facility] [address] [address] [address] Tg Fierro Basophils/100 WBC (Bld) 0.6 % Normal 0.2-2.0 [facility] Comment on above: Performed By: #### C BC #### [facility] [address] [place] [address] Dr. Tg Fierro EO # 0.2 103/ul Normal 0.0-0.7 [facility] Comment on above: Performed By: #### C BC #### [facility] [address] [place] [address] Dr. Tg Fierro Eosinophils/100 WBC (Bld) 3.1 % Normal 0.9-7.0 [facility] Comment on above: Performed By: #### C BC #### [facility] [address] [place] [address] Dr. Tg Fierro Erythrocyte distribution width (RBC) [Ratio] 13.6 % Normal 11.0-15.0 [facility] Comment on above: Performed By: #### C BC #### [facility] [address] [place] [address] Dr. Tg Fierro Hematocrit (Bld) [Volume fraction] 42.3 % Normal 36.0-48.0 [facility] Comment on above: Performed By: #### C BC #### [facility] [address] [place] [address] Dr. Tg Fierro Hemoglobin (Bld) [Mass/Vol] 13.2 g/dL Normal 12.0-16.0 [facility] Comment on above: Performed By: #### C BC #### [facility] [address] [place] [address] Dr. Tg Fierro IG # 0.04 10e3/ul Critically high 0.00-0.03 [facility] Comment on above: Performed By: #### C BC #### [facility] [address] [place] [address] Dr. Tg Fierro IG % 0.5 % Normal 0.0-0.5 [facility] Comment on above: Performed By: #### C BC #### [facility] [address] [place] [address] Dr. Tg Fierro LYMPH # 2.5 103/ul Normal 1.2-3.8 [facility] Comment on above: Performed By: #### C BC #### [facility] [address] [place] [address] Dr. Tg Fierro Lymphocytes/100 WBC (Bld) 31.6 % Normal 20.5-60.0 [facility] Comment on above: Performed By: #### C BC #### [facility] [address] [place] [address] Dr. Tg Fierro MANUAL DIFF REQ NO Normal [facility] Comment on above: Performed By: #### C BC #### [facility] [address] [place] [address] Dr. Tg Fierro MCH (RBC) [Entitic mass] 30.3 pg Normal 26.7-34.0 [facility] Comment on above: Performed By: #### C BC #### [facility] [address] [place] [address] Dr. Tg Fierro MCHC (RBC) [Mass/Vol] 31.2 g/dL Normal 29.9-35.2 [facility] Comment on above: Performed By: #### C BC #### [facility] [address] [place] [address] Dr. Tg Fierro MCV (RBC) [Entitic vol] 97.0 fL Normal 81.0-99.0 [facility] Comment on above: Performed By: #### C BC #### [facility] [address] [place] [address] Dr. Tg Feirro MONO # 0.5 103/ul Normal 0.3-0.8 [facility] Comment on above: Performed By: #### C BC #### [facility] [address] [place] [address] Dr. Tg Fierro Monocytes/100 WBC (Bld) 6.3 % Normal 1.7-12.0 [facility] Comment on above: Performed By: #### C BC #### [facility] [address] [place] [address] Dr. Tg Fierro NEUT # 4.5 103/ul Normal 1.4-6.5 [facility] Comment on above: Performed By: #### C BC #### [facility] [address] [place] [address] Dr. Tg Fierro Neutrophils/100 WBC (Bld) 57.9 % Normal 43.0-75.0 [facility] Comment on above: Performed By: #### C BC #### [facility] [address] [place] [address] Dr. Tg Fierro Platelet mean volume (Bld) [Entitic vol] 8.6 fL Critically low 9.5-13.5 [facility] Comment on above: Performed By: #### C BC #### [facility] [address] [place] [address] Dr. Tg Fierro PLT 295 103/ul Normal 150-450 [facility] Comment on above: Performed By: #### C BC #### [facility] [address] [place] [address] Dr. Tg Fierro RBC 4.36 106/ul Normal 4.20-5.40 [facility] Comment on above: Performed By: #### C BC #### [facility] [address] [place] [address] Dr. Tg Fierro WBC 7.8 103/ul Normal 4.0-11.0 [facility] Comment on above: Performed By: #### C BC #### [facility] [address] [place] [address] Dr. Tg Fierro PROF 14(COMP METB)on 022 Albumin [Mass/Vol] 4.5 g/dL Normal 3.4-5.0 [facility] Comment on above: Performed By: #### C MP #### [facility] [address] [place] [address] Dr. Tg Fierro Albumin/Globulin [Mass ratio] 1.5 {ratio} Normal [facility] Comment on above: Performed By: #### C MP #### [facility] [address] [place] [address] Dr. Tg Fierro ALP [Catalytic activity/Vol] 62 U/L Normal 46-116 [facility] Comment on above: Performed By: #### C MP #### [facility] [address] [place] [address] Dr. Tg Fierro ALT [Catalytic activity/Vol] 25 U/L Normal 14-59 [facility] Comment on above: Performed By: #### C MP #### [facility] [address] [address] [address] Tg Fierro Anion gap [Moles/Vol] 10.6 mmol/L Normal [facility] Comment on above: Performed By: #### C MP #### [facility] [address] [address] [address] Tg Fierro AST [Catalytic activity/Vol] 12 U/L Critically low 15-37 [facility] Comment on above: Performed By: #### C MP #### [facility] [address] [address] [address] Tg Fierro Bilirubin [Mass/Vol] 0.5 mg/dL Normal 0.2-1.0 [facility] Comment on above: Performed By: #### C MP #### [facility] [address] [address] [address] Tg Fieror Calcium [Mass/Vol] 9.8 mg/dL Normal 8.5-10.1 [facility] Comment on above: Performed By: #### C MP #### [facility] [address] [address] [address] Tg Fierro Chloride [Moles/Vol] 102 mmol/L Normal 98-107 [facility] Comment on above: Performed By: #### C MP #### [facility] [address] [address] [address] Tg Fierro CO2 [Moles/Vol] 31.8 mmol/L Normal 21.0-32.0 [facility] Comment on above: Performed By: #### C MP #### [facility] [address] [address] [address] Tg Fierro Creatinine [Mass/Vol] 0.88 mg/dL Normal 0.55-1.02 [facility] Comment on above: Performed By: #### C MP #### [facility] [address] [address] [address] Tg Fierro EGFR-AF LEBANESE >60 Normal >=60 [facility] Comment on above: Performed By: #### C MP #### [facility] [address] [address] [address] Tg Fierro EGFR-NON AF LEBANESE >60 Normal >=60 [facility] Comment on above: Performed By: #### C MP #### [facility] [address] [address] [address] Tg Fierro Globulin (S) [Mass/Vol] 3.1 g/dL Normal [facility] Comment on above: Performed By: #### C MP #### [facility] [address] [address] [address] Tg Fierro Glucose [Mass/Vol] 187 mg/dL Critically high 74-106 [facility] Comment on above: Performed By: #### C MP #### [facility] [address] [address] [address] Tg Fierro Potassium [Moles/Vol] 4.4 mmol/L Normal 3.5-5.1 [facility] Comment on above: Performed By: #### C MP #### [facility] [address] [address] [address] Tg Fierro Protein [Mass/Vol] 7.6 g/dL Normal 6.4-8.2 [facility] Comment on above: Performed By: #### C MP #### [facility] [address] [address] [address] Tg Fierro Sodium [Moles/Vol] 140 mmol/L Normal 136-145 [facility] Comment on above: Performed By: #### C MP #### [facility] [address] [address] [address] gT Fierro Urea nitrogen [Mass/Vol] 14.0 mg/dL Normal 7.0-18.0 [facility] Comment on above: Performed By: #### C MP #### [facility] [address] [address] [address] Tg Fierro Urea nitrogen/Creatinine [Mass ratio] 15.9 mg/mg Normal [facility] Comment on above: Performed By: #### C MP #### [facility] [address] [place] [address] Dr. Tg Fierro SED RATE [facility] 2021 SED RATE 5 mm/hr Normal <=30 [facility] Comment on above: Performed By: #### S EDR #### [facility] [address] [place] [address] Dr. Tg Fierro CBC AUTO DIFFon 02-07-2022 BASO # 0.0 103/ul Normal 0.0-0.1 [facility] Comment on above: Performed By: #### P T #### [facility] [address] [place] [address] Dr. Tg Fierro Basophils/100 WBC (Bld) 0.6 % Normal 0.2-2.0 [facility] Comment on above: Performed By: #### P T #### [facility] [address] [place] [address] Dr. Tg Fierro EO # 0.4 103/ul Normal 0.0-0.7 [facility] Comment on above: Performed By: #### P T #### [facility] [address] [place] [address] Dr. Tg Fieror Eosinophils/100 WBC (Bld) 5.4 % Normal 0.9-7.0 [facility] Comment on above: Performed By: #### P T #### [facility] [address] [place] [address] Dr. Tg Fierro Erythrocyte distribution width (RBC) [Ratio] 13.5 % Normal 11.0-15.0 [facility] Comment on above: Performed By: #### P T #### [facility] [address] [place] [address] Dr. Tg Fierro Hematocrit (Bld) [Volume fraction] 39.4 % Normal 36.0-48.0 [facility] Comment on above: Performed By: #### P T #### [facility] [address] [place] [address] Dr. Tg Fierro Hemoglobin (Bld) [Mass/Vol] 12.8 g/dL Normal 12.0-16.0 [facility] Comment on above: Performed By: #### P T #### [facility] [address] [place] [address] Dr. Tg Fierro IG # 0.02 10e3/ul Normal 0.00-0.03 [facility] Comment on above: Performed By: #### P T #### [facility] [address] [place] [address] Dr. Tg Fierro IG % 0.3 % Normal 0.0-0.5 [facility] Comment on above: Performed By: #### P T #### [facility] [address] [place] [address] Dr. Tg Fierro LYMPH # 2.4 103/ul Normal 1.2-3.8 [facility] Comment on above: Performed By: #### P T #### [facility] [address] [place] [address] Dr. Tg Fierro Lymphocytes/100 WBC (Bld) 36.2 % Normal 20.5-60.0 [facility] Comment on above: Performed By: #### P T #### [facility] [address] [place] [address] Dr. Tg Fierro MANUAL DIFF REQ NO Normal [facility] Comment on above: Performed By: #### P T #### [facility] [address] [place] [address] Dr. Tg Fierro MCH (RBC) [Entitic mass] 31.0 pg Normal 26.7-34.0 [facility] Comment on above: Performed By: #### P T #### [facility] [address] [place] [address] Dr. Tg Fierro MCHC (RBC) [Mass/Vol] 32.5 g/dL Normal 29.9-35.2 [facility] Comment on above: Performed By: #### P T #### [facility] [address] [place] [address] Dr. Tg Fierro MCV (RBC) [Entitic vol] 95.4 fL Normal 81.0-99.0 [facility] Comment on above: Performed By: #### P T #### [facility] [address] [place] [address] Dr. Tg Fierro MONO # 0.5 103/ul Normal 0.3-0.8 [facility] Comment on above: Performed By: #### P T #### [facility] [address] [place] [address] Dr. Tg Fierro Monocytes/100 WBC (Bld) 8.0 % Normal 1.7-12.0 [facility] Comment on above: Performed By: #### P T #### [facility] [address] [place] [address] Dr. Tg Fierro NEUT # 3.3 103/ul Normal 1.4-6.5 [facility] Comment on above: Performed By: #### P T #### [facility] [address] [place] [address] Dr. Tg Fierro Neutrophils/100 WBC (Bld) 49.5 % Normal 43.0-75.0 [facility] Comment on above: Performed By: #### P T #### [facility] [address] [place] [address] Dr. Tg Fierro Platelet mean volume (Bld) [Entitic vol] 8.7 fL Critically low 9.5-13.5 [facility] Comment on above: Performed By: #### P T #### [facility] [address] [place] [address] Dr. Tg Fierro PLT 276 103/ul Normal 150-450 [facility] Comment on above: Performed By: #### P T #### [facility] [address] [place] [address] Dr. Tg Fierro RBC 4.13 106/ul Critically low 4.20-5.40 [facility] Comment on above: Performed By: #### P T #### [facility] [address] [place] [address] Dr. Tg Fierro WBC 6.7 103/ul Normal 4.0-11.0 [facility] Comment on above: Performed By: #### P T #### [facility] [address] [place] [address] Dr. Tg Fierro GLYCOHEMOGLOBIN A1Con 2021 ADA RECOMMENDATION SEE BELOW Normal [facility] Comment on above: Result Comment: ADA RECOMMENDED LIMIT 4.0 - 6.0 ADA THERAPEUTIC TARGET < 7.0 ACTION SUGGESTED > 7.0 Performed By: #### A 1C #### [facility] [address] [address] [address] Tg Fierro Glucose [Mass/Vol] 151 mg/dL Normal [facility] Comment on above: Performed By: #### A 1C #### [facility] [address] [address] [address] Tg Fierro HbA1c (Bld) [Mass fraction] 6.9 % Critically high 4.5-6.2 [facility] Comment on above: Performed By: #### A 1C #### [facility] [address] [place] [address] Dr. Tg Fierro PROF 14(COMP METB)on 022 Albumin [Mass/Vol] 3.8 g/dL Normal 3.4-5.0 [facility] Comment on above: Performed By: #### P T #### [facility] [address] [address] [address] Tg Fierro Albumin/Globulin [Mass ratio] 1.3 {ratio} Normal [facility] Comment on above: Performed By: #### P T #### [facility] [address] [address] [address] Tg Fierro ALP [Catalytic activity/Vol] 43 U/L Critically low 46-116 [facility] Comment on above: Performed By: #### P T #### [facility] [address] [address] [address] Tg Fierro ALT [Catalytic activity/Vol] 19 U/L Normal 14-59 [facility] Comment on above: Performed By: #### P T #### [facility] [address] [address] [address] Tg Fierro Anion gap [Moles/Vol] 13.7 mmol/L Normal [facility] Comment on above: Performed By: #### P T #### [facility] [address] [place] [address] Dr. Tg Fierro AST [Catalytic activity/Vol] 11 U/L Critically low 15-37 [facility] Comment on above: Performed By: #### P T #### [facility] [address] [place] [address] Dr. Tg Fierro Bilirubin [Mass/Vol] 0.4 mg/dL Normal 0.2-1.0 [facility] Comment on above: Performed By: #### P T #### [facility] [address] [place] [address] Dr. Tg Fierro Calcium [Mass/Vol] 9.1 mg/dL Normal 8.5-10.1 [facility] Comment on above: Performed By: #### P T #### [facility] [address] [place] [address] Dr. Tg Fierro Chloride [Moles/Vol] 104 mmol/L Normal 98-107 [facility] Comment on above: Performed By: #### P T #### [facility] [address] [place] [address] Dr. Tg Fierro CO2 [Moles/Vol] 28.5 mmol/L Normal 21.0-32.[address] [facility] Comment on above: Performed By: #### P T #### [facility] [address] [place] [address] Dr. Tg Fierro Creatinine [Mass/Vol] 0.77 mg/dL Normal 0.55-1.02 [facility] Comment on above: Performed By: #### P T #### [facility] [address] [place] [address] Dr. Tg Fierro EGFR-AF LEBANESE >60 Normal >=60 [facility] Comment on above: Performed By: #### P T #### [facility] [address] [place] [address] Dr. Tg Fierro EGFR-NON AF LEBANESE >60 Normal >=60 [facility] Comment on above: Performed By: #### P T #### [facility] [address] [place] [address] Dr. Tg Fierro Globulin (S) [Mass/Vol] 3.0 g/dL Normal [facility] Comment on above: Performed By: #### P T #### [facility] [address] [place] [address] Dr. Tg Fierro Glucose [Mass/Vol] 124 mg/dL Critically high 74-106 [facility] Comment on above: Performed By: #### P T #### [facility] [address] [address] [address] Tg Fierro Potassium [Moles/Vol] 4.2 mmol/L Normal 3.5-5.1 [facility] Comment on above: Performed By: #### P T #### [facility] [address] [place] [address] Dr. Tg Fierro Protein [Mass/Vol] 6.8 g/dL Normal 6.4-8.2 [facility] Comment on above: Performed By: #### P T #### [facility] [address] [place] [address] Dr. Tg Fierro Sodium [Moles/Vol] 142 mmol/L Normal 136-145 [facility] Comment on above: Performed By: #### P T #### [facility] [address] [place] [address] Dr. Tg Fierro Urea nitrogen [Mass/Vol] 12.0 mg/dL Normal 7.0-18.0 [facility] Comment on above: Performed By: #### P T #### [facility] [address] [place] [address] Dr. Tg Fierro Urea nitrogen/Creatinine [Mass ratio] 15.6 mg/mg Normal [facility] Comment on above: Performed By: #### P T #### [facility] [address] [address] [address] Tg Fierro SED RATE [facility] 2021 SED RATE 8 mm/hr Normal <=30 [facility] Comment on above: Performed By: #### C MP #### [facility] [address] [place] [address] Dr. Tg Fierro COVID Quick Testingon 2020 Result Positive [facility] Other Vital Signs Date Time Vital Sign Value Performing Clinician Facility 10-14-2023 09:09-0400 Body temperature 98.6 [degF] Williams SHEPHERD [facility] 10-14-2023 09:09-0400 Diastolic blood pressure 61 mm[Hg] Williams SHEPHEDR [facility] 10-14-2023 09:09-0400 Heart rate 80 /min Williams SHEPHERD [facility] 10-14-2023 09:09-0400 Respiratory rate 16 /min Williams SHEPHERD [facility] 10-14-2023 09:09-0400 Systolic blood pressure 115 mm[Hg] Williams SHEPHERD [facility] 08-13-2023 10:47-0500 Blood Pressure Location Renato SANTACRUZ [facility] 08-13-2023 10:47-0500 Diastolic blood pressure 62 mm[Hg] Renato SANTACRUZ [facility] 08-13-2023 10:47-0500 Heart rate 82 /min Renato SANTACRUZ [facility] 08-13-2023 10:47-0500 Respiratory rate 16 /min Renato SANTACRUZ [facility] 08-13-2023 10:47-0500 Systolic blood pressure 105 mm[Hg] Renato SANTACRUZ [facility] 08-07-2023 09:48-0500 Body height 160 cm Jayme Perez MD Work Phone: [facility] [employer] 08-07-2023 09:48-0500 Body mass index (BMI) [Ratio] 24.45 kg/m2 Jayme Perez MD Work Phone: [facility] 08-07-2023 09:48-0500 Body weight 62.6 kg Jayme Perez MD Work Phone: [facility] 08-07-2023 09:48-0500 Heart rate 57 /min Jayme Perez MD Work Phone: [facility] 08-07-2023 09:48-0500 SaO2% (BldA) [Mass fraction] 98 % Jayme Perez MD Work Phone: [facility] [employer] 07-25-2023 09:20-0500 Body height 160.02 cm Lou Glover Other [email or web address] Other 07-25-2023 09:20-0500 Body mass index (BMI) [Ratio] 23.91 kg/m2 Lou Glover Other [email or web address] Other 07-25-2023 09:20-0500 Body temperature 97.7 [degF] Lou Glover Other [email or web address] Other 07-25-2023 09:20-0500 Body weight 61.24 kg Lou Glover Other [email or web address] Other 07-25-2023 09:20-0500 Diastolic blood pressure 74 mm[Hg] Lou Glover Other [email or web address] Other 07-25-2023 09:20-0500 Respiratory rate 18 /min Lou Glover Other [email or web address] Other 07-25-2023 09:20-0500 SaO2% (BldA) [Mass fraction] 96 % Lou Glover Other [email or web address] Other 07-25-2023 09:20-0500 Systolic blood pressure 120 mm[Hg] Lou Glover Other [email or web address] Other 03-26-2023 13:15-0400 Body height 160.02 cm MD Jayme Perez Work Phone: [facility] 03-26-2023 13:15-0400 Body temperature 98.2 [degF] MD Jayme Perez Work Phone: [facility] 03-26-2023 13:15-0400 Body weight 66 kg MD Jayme Perez Work Phone: [facility] 03-26-2023 13:15-0400 Diastolic blood pressure 71 mm[Hg] MD Jayme Perez Work Phone: [facility] 03-26-2023 13:15-0400 Heart rate 87 /min MD Jayme Perez Work Phone: [facility] 03-26-2023 13:15-0400 Respiratory rate 16 /min MD Jayme Perez Work Phone: [facility] 03-26-2023 13:15-0400 SaO2% (BldA) [Mass fraction] 97 % MD Jayme Perez Work Phone: [facility] 03-26-2023 13:15-0400 Systolic blood pressure 117 mm[Hg] MD Jayme Perez Work Phone: [facility] 05-21-2021 13:15-0500 Body height 160.02 cm Astrid Baker Other [email or web address] Other 05-21-2021 13:15-0500 Body mass index (BMI) [Ratio] 23.91 kg/m2 Astrid Baker Other [email or web address] Other 05-21-2021 13:15-0500 Body temperature 97.3 [degF] Astrid Baker Other [email or web address] Other 05-21-2021 13:15-0500 Body weight 61.24 kg Astrid Baker Other [email or web address] Other 05-21-2021 13:15-0500 SaO2% (BldA) [Mass fraction] 94 % Astrid Baker Other [email or web address] Other Encounters Encounter Date Encounter Type Care Provider Facility Start: 10-14-2023 End: 10-15-2023 ambulatory Williams SHEPHERD Facility:[facility] [place] Start: 10-14-2023 End: 10-14-2023 Patient encounter procedure Williams SHEPHERD [facility] [employer] Start: 09-01-2023 End: 09-01-2023 ambulatory FELICIA FARMER Not Available Start: 08-20-2023 [facility] Result Encounter Generic External Data Provider [facility] External Department Unsolicited Start: 08-20-2023 Clinisync Result Encounter Generic External Data Provider [facility] External Department Unsolicited Start: 08-14-2023 End: 08-15-2023 ambulatory Renato SANTACRUZ Facility:[id number] Start: 08-13-2023 End: 08-14-2023 ambulatory Renato SANTACRUZ Facility:[facility] [place] Start: 08-13-2023 End: 08-13-2023 Patient encounter procedure Renato SANTACRUZ [facility] [employer] Start: 08-07-2023 End: 08-07-2023 ambulatory JAYME PEREZ Not Available Start: 08-07-2023 End: 08-07-2023 Office outpatient visit 25 minutes Edward J Hemeyer MD Work Phone: [facility] Comment on above: Chronic diastolic he art failure (CMS/HCC) (Primary Dx); 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 (CMS/HCC); Type 2 diabetes mellitus with stage 3a chronic kidney disease, without long-term current use of insulin (HCC) (CMS/HCC); Stage 3a chronic kidney disease (HCC) (CMS/HCC); Microalbuminuria; Former smoker; 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, adult; FPC current use of anticoagulant; Psoriatic arthropathy (CMS/HCC); Gastroesophageal reflux disease without esophagitis Start: 07-30-2023 End: 07-30-2023 ambulatory JAYME PEREZ Not Available Start: 07-25-2023 End: 07-25-2023 ambulatory Lou Glover Other [email or web address] Other Start: 07-25-2023 Office outpatient vi sit 25 minutes Lou Glover [facility] Start: 07-10-2023 End: 07-10-2023 ambulatory FELICIA Magalie GILLESPIEER Not Available Start: 07-02-2023 End: 07-02-2023 ambulatory FELICIA D ZAHLER Not Available Start: 06-25-2023 End: 06-25-2023 ambulatory FELICIA D ZAHLER Not Available Start: 06-18-2023 End: 06-18-2023 ambulatory FELICIA D ZAHLER Not Available Start: 04-07-2023 End: 04-07-2023 ambulatory Williams Shepherd Facility:[facility] Start: 04-07-2023 End: 04-07-2023 Departed Referred MD Jayme Perez Work Phone: [facility] [place] Start: 04-07-2023 End: 04-08-2023 ambulatory MD Jayme Perez Work Phone: [facility] Work Phone: Start: 03-26-2023 End: 03-26-2023 ambulatory Williams Shepherd Facility:[facility] Start: 03-26-2023 End: 03-26-2023 Patient encounter procedure MD Jayme Perez Work Phone: [facility] Work Phone: Start: 03-20-2023 End: 03-21-2023 ambulatory Williams SHEPHERD Facility:[facility] Start: 03-20-2023 End: 03-20-2023 Lab Drop off Williams SHEPHERD [facility] Start: 03-20-2023 End: 03-20-2023 Patient encounter procedure Williams Rubi SHEPHERD [facility] Start: 02-03-2023 End: 02-04-2023 [...] Facility:[facility] Start: 05-21-2021 End: 05-21-2021 ambulatory Astrid Olivia Other [facility] Other Start: 05-21-2021 Office outpatient vi sit 15 minutes Astrid Olivia [facility] Procedures Date Procedure [...] [facility] CREATININE Generic External Data Provider Start: 08-14-2023 Lithotripsy Williams WEBB [place] Start: 08-26-2019 Extracorporeal shock wave lithotripsy of [...] Start: 05-19-2025 Glaucoma screening Diabetes: Retinopathy Screening [facility] Start: 07-12-2024 ambulatory Ambulatory Facility:[facility] Start: 05-22-2024 Medicare Annual Wellness (AWV) Medicare Annual Wellness (AWV) [facility] Start: 09-01-2023 End: 09-01-2023 Patient encounter procedure 09/01/2023 10:30 AM EST [facility] [address] [place] [address] Felicia Farmer DO [address] [place], [place] [id number] [facility] Start: 05-06-2023 Hemoglobin A1c measurement Diabetes: Hemoglobin A1C [facility] Start: 04-07-2023 Abdomen endoscopy OR Cysto/Retro/Stent/Stone/ Holmium Laser (Right) [facility] Start: 03-14-2023 Influenza vaccination Influenza Vaccine (#1) [facility] Start: 1951 Pneumococcal Vaccine: 65+ Years (1 - PCV) Pneumococcal Vaccine: 65+ Years (1 - PCV) [facility] Immunizations Immunization Date Immunization Notes Care Provider Yaya oswald NEGATED: Highlighted row has not occurred!08-13-2023 influenza virus vaccine, unspecified formulation Renato SANTACRUZ [facility] NEGATED: Highlighted row has not occurred!08-13-2023 SARS-CoV-2 mRNA (tozinameran 5y-11y) vaccine Renato SANTACRUZ [facility] NEGATED: Highlighted row has not occurred!09-21-2019 influenza virus vaccine, live, attenuated, for intranasal use [employer] [facility] NEGATED: Highlighted row has not occurred!08-20-2019 influenza virus vaccine, live, attenuated, for intranasal use [employer] [facility] Payers Date Payer Category Payer Self-pay [id number] 2022 Unknown [employer] [id number] 2022-Present [address] [address] [place] [address] [id number] 2022 Medicare [id number] 2002 Medicare MEDICARE MEDICAR E PART B [id number] 2002-Present [address] [address] [place] [address] Medicare [id number] 1959 Medicare [id number] [id number] 1959 Unknown [id number] 1946 Unknown [id number] 2.16.840.1.254847.3.579.2.59 3 1946 Unknown [id number] 2.16.840.1.858246.3.579.2.59 3 1946 Unknown [id number] 2.16.840.1.077272.3.579.2.59 3 1946 Unknown [id number] 2.16.840.1.451211.3.579.2.59 3 1946 Unknown [id number] 2.16.840.1.688489.3.579.2.59 3 1946 Unknown [id number] 2.16.840.1.904681.3.579.2.59 3 1946 Unknown [id number] 2.16.840.1.933872.3.579.2.59 3 1946 Unknown [id number] 2.16.840.1.330449.3.579.2.59 3 1946 Unknown [id number] 2.16.840.1.903347.3.579.2.59 3 1946 Unknown [id number] 2.16.840.1.684597.3.579.2.59 3 1946 Unknown [id number] 2.16.840.1.484129.3.579.2.59 3 1946 Unknown [id number] 2.16.840.1.508864.3.579.2.59 3 1946 Unknown [id number] 2.16.840.1.203673.3.579.2.59 3 1946 Unknown [id number] 2.16.840.1.927895.3.579.2.12 59 1946 Unknown [id number] 2.16.840.1.676525.3.579.2.12 59 1946 Unknown [id number] 2.16.840.1.112258.3.579.2.12 59 1946 Unknown [id number] 2.16.840.1.855944.3.579.2.12 59 1946 Unknown [id number] 2.16.840.1.645913.3.579.2.12 59 1946 Unknown [id number] 2.16.840.1.116904.3.579.2.12 59 1946 Unknown [id number] 2.16.840.1.291541.3.579.2.12 59 1946 Unknown [id number] 2.16.840.1.711307.3.579.2.72 7 1946 Unknown [id number] 2.16.840.1.531265.3.579.2.72 7 1946 Unknown [id number] 2.16.840.1.534849.3.579.2.72 7 1946 Unknown [id number] 2.16.840.1.962157.3.579.2.72 7 1946 Unknown [id number] 2.16.840.1.412106.3.579.2.72 7 1946 Unknown [id number] 2.16.840.1.692349.3.579.2.72 7 1946 Unknown [id number] 2.16.840.1.962949.3.579.2.72 7 Unknown [id number] 2.16.840.1.828455.3.579.2.53 1 Unknown [id number] 2.16.840.1.138995.3.579.2.53 1 Social History Date Type Detail Facility Sex Assigned At [email or web address] Other Start: 02-03-2023 End: 10-14-2023 Tobacco smoking status Ex-smoker (finding) [facility] Tobacco smoking status Never [facility] Start: 12-11-2022 End: 05-22-2023 Sex Assigned At Female [facility] Start: 1945 Sex Assigned At Female [facility] End: 07-14-1986 History of tobacco use Current smoker [facility] End: 07-14-1986 History of tobacco use Cigarette Smoker [facility] Start: 08-07-2023 Tobacco use and exposure Smokeless tobacco non-user [facility] Start: 08-07-2023 End: 08-14-2023 Alcohol intake Ex-drinker (finding) [facility] Start: 12-11-2022 End: 05-22-2023 History of Social function [facility] Within the last year , have you been afraid of your partner or ex-partner? No [facility] Are you now , , , , never or living with a partner? [facility] How often to you hav e a drink containing alcohol? Never [facility] Do you feel stress - tense, restless, nervous, or anxious, or unable to sleep at night because your mind is troubled all the time - these days [OSQ] To some extent [facility] (I/We) worried wheth er (my/our) food would run out before (I/we) got money to buy more. Never true [facility] Start: 01-24-2023 Education 21 [facility] Start: 01-06-2023 Gender identity Identifies as female gender (finding) [facility] Functional Status Date Assessment Result Facility 10-14-2023 Functional Status N/A [facility] 08-13-2023 Functional Status N/A [facility] Clinical Notes 02-21-2022 to 10-14-2023 Jayme Perez MD - 08/07/2023 10:00 AM EST Note Date & Type Note Facility 10-14-2023 Hospital Discharge instructions Patient Education 10/14/2023 09:33:38 Dietary Guidelines to Help Prevent Kidney Stones Dietary Guidelines to Help Prevent Kidney Stones Kidney stones are deposits of minerals and salts that form inside your kidneys. Your risk of developing kidney stones may be greater depending on your diet, your lifestyle, the medicines you take, and whether you have certain medical conditions. Most people can lower their risks of developing kidney stones by following these dietary guidelines. Your dietitian may give you more specific instructions depending on your overall health and the type of kidney stones you tend to develop. What are tips for following this plan? Reading food labels Choose foods with no salt added or low-salt labels. Limit your salt (sodium) intake to less than 1,500 mg a day. Choose foods with calcium for each meal and snack. Try to eat about 300 mg of calcium at each meal. Foods that contain 200 500 mg of calcium a serving include: ?8 oz (237 mL) of milk, ehuihtg-tutywjriwljg-qhujf milk, and calcium-fortifiedfruit juice. Calcium-fortified means that calcium has been added to these drinks. ?8 oz (237 mL) of kefir, yogurt, and soy yogurt. ?4 oz (114 g) of tofu. ?1 oz (28 g) of cheese. ?1 cup (150 g) of dried figs. ?1 cup (91 g) of cooked broccoli. ?One 3 oz (85 g) can of sardines or mackerel. Most people need 1,000 1,500 mg of calcium a day. Talk to your dietitian about how much calcium is recommended for you. Shopping Buy plenty of fresh fruits and vegetables. Most people do not need to avoid fruits and vegetables, even if these foods contain nutrients that may contribute to kidney stones. When shopping for convenience foods, choose: ?Whole pieces of fruit. ?Pre-made salads with dressing on the side. ?Low-fat fruit and yogurt smoothies. Avoid buying frozen meals or prepared deli foods. These can be high in sodium. Look for foods with live cultures, such as yogurt and kefir. Choose high-fiber grains, such as whole-wheat breads, oat bran, and wheat cereals. Cooking Do not add salt to food when cooking. Place a salt shaker on the table and allow each person to add their own salt to taste. Use vegetable protein, such as beans, textured vegetable protein (TVP), or tofu, instead of meat in pasta, casseroles, and soups. Meal planning Eat less salt, if told by your dietitian. To do this: ?Avoid eating processed or pre-made food. ?Avoid eating fast food. Eat less animal protein, including cheese, meat, poultry, or fish, if told by your dietitian. To do this: ?Limit the number of times you have meat, poultry, fish, or cheese each week. Eat a diet free of meat at least 2 days a week. ?Eat only one serving each day of meat, poultry, fish, or seafood. ?When you prepare animal proteins, cut pieces into small portion sizes. For most meat and fish, one serving is about the size of the palm of your hand. Eat at least five servings of fresh fruits and vegetables each day. To do this: ?Keep fruits and vegetables on hand for snacks. ?Eat one piece of fruit or a handful of berries with breakfast. ?Have a salad and fruit at lunch. ?Have two kinds of vegetables at dinner. You may be told to limit foods that are high in a substance called oxalate. These include: ?Spinach (cooked), rhubarb, beets, sweet potatoes, and Japanese chard. ?Peanuts. ?Potato chips, emirati fries, and baked potatoes with skin on. ?Nuts and nut products. ?Chocolate. If you regularly take a diuretic medicine, make sure to eat at least 1 or 2 servings of fruits or vegetables that are high in potassium each day. These include: ?Avocado. ?Banana. ?[place], prune, carrot, or tomato juice. ?Baked potato. ?Cabbage. ?Beans and split peas. Lifestyle Drink enough fluid to keep your urine pale yellow. This is the most important thing you can do. Spread your fluid intake throughout the day. If you drink alcohol: ?Limit how much you have to: ?0 1 drink a day for women who are not . ?0 2 drinks a day for men. ?Know how much alcohol is in your drink. In the [place] one drink equals one 12 oz bottle of beer (355 mL), one 5 oz glass of wine (148 mL), or one 1 oz glass of hard liquor (44 mL). Lose weight if told by your health care provider. Work with your dietitian to find an eating plan and weight loss strategies that work best for you. General information Talk to your health care provider and dietitian about taking daily supplements. Depending on your health and the cause of your kidney stones, you may be told: ?Do not take high-dose supplements of vitamin C (1,000 mg a day or more). ?To take a calcium supplement. ?To take a daily probiotic supplement. ?To take other supplements such as magnesium, fish oil, or vitamin B6. Take aflu-rpq-zdjgeoe and prescription medicines only as told by your health care provider. These include supplements. What foods should I limit? Limit your intake of the following foods, or eat them as told by your dietitian. Vegetables Spinach. Rhubarb. Beets. Canned vegetables. Pickles. Olives. Baked potatoes with skin. Grains Wheat bran. Baked goods. Salted crackers. Cereals high in sugar. Meats and other proteins Nuts. Nut butters. Large portions of meat, poultry, or fish. Salted, precooked, or cured meats, such as sausages, meat loaves, and hot dogs. Dairy Cheeses. Beverages Regular soft drinks. Regular vegetable juice. Seasonings and condiments Seasoning blends with salt. Salad dressings. Soy sauce. Ketchup. Barbecue sauce. Other foods Canned soups. Canned pasta sauce. Casseroles. Pizza. Lasagna. Frozen meals. Potato chips. Mongolian fries. The items listed above may not be a complete list of foods and beverages you should limit. Contact a dietitian for more information. What foods should I avoid? Talk to your dietitian about specific foods you should avoid based on the type of kidney stones you have and your overall health. Fruits Grapefruit. The item listed above may not be a complete list of foods and beverages you should avoid. Contact a dietitian for more information. Summary Kidney stones are deposits of minerals and salts that form inside your kidneys. You can lower your risk of kidney stones by making changes to your diet. The most important thing you can do is drink enough fluid. Drink enough fluid to keep your urine pale yellow. Talk to your dietitian about how much calcium you should have each day, and eat less salt and animal protein as told by your dietitian. This information is not intended to replace advice given to you by your health care provider. Make sure you discuss any questions you have with your health care provider. Document Revised: 10/10/2022 Document Reviewed: 10/10/2022 [employer] Patient Education 2022 [employer] Follow Up Care 08/13/2023 10:19:44 With:CORA AGUIAR, Williams Venegas, URL Address: [address] [place], [place] [id number]- When: Unknown [facility] Discharge instructions Patient Education 08/13/2023 [...] including vitamins, herbs, eye drops, creams, and ptwu-jod-tcmllse medicines. Any problems you or family members [...] provider tells you to take them. ?Taking ibxx-lel-rfhqxad medicines, vitamins, herbs, and supplements. Eating and [...] provider. Document Revised: 11/06/2022 Document Reviewed: 03/04/2022 [employer] Patient Education 2022 [employer] Follow Up Care 08/12/2023 14:37:00 With:ANGELITO AGUIAR, Renato Arzola, URL Address: [facility] [address] , [place] [address]- [phone] When: Unknown Comments:sched ureteroscopyf/u w/ [facility] scheduled 10/14/23 [facility] [place] 08-07-2023 History of Present illness Narrative Patient [...] 0.55 - 1.02 mg/dL Final [facility] EGFR-AF LE[place]ESE 07/22/2023 >60 >=60 Final [facility] EGFR-NON AF [place]ESE 07/22/2023 55 (L) >=60 Final BUN CREATININE [...] cardiovascular disease. Former smoker 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, adult FPC current use of anticoagulant Chronic problem, that is monitored monthly, and be seen in the monthly INR results. documented in this encounter [facility] 07-25-2023 Evaluation note Encounter Date Diagnosis Assessment [...] care as directed rx of steroid and [place], cool mist humidification. May use Tylenol as directed. Immediate eval for signs of respiratory distress, difficulty breathing poor PO intake, signs of dehydration, fever, or other concerning symptoms. Otherwise, follow up with PCP in 2-3 days. Patient verbalizes understanding and is agreeable to treatment plan. Patient sent home in stable condition. [id number] Other 08-11-2022 NotePROCEDURE: XR FOOT LT MIN 3 VIEWS COMPARISON: None. HISTORY: Pain in left foot FINDINGS: BONES:No acute fracture or dislocation. Mild enthesopathic spurring of the calcaneus. SOFT TISSUES:Negative. No visible soft tissue swelling. EFFUSION:None visible. OTHER: Negative. IMPRESSION: Mild enthesopathic spurring of the calcaneus Electronically authenticated by: BLANCA ZAVALA Date: 2022-02-21 [facility] App[facility]ments Appointment Date:07/12/2024 10:45:00 AM Scheduled Provider:Williams SHEPHERD MD Location:On license of [facility] Appointment Type:URO Office Visit [facility] Evaluation + Plan note Future Appointments Appointment Date:07/12/2024 10:45:00 AM Scheduled Provider:Williams SHEPHERD MD [facility] Type:[facility] Office Visit Diagnostic Tests Pending * Calculi [facility] Appointment Date:10/14/2023 09:15:00 AM Scheduled Provider:Williams SHEPHERD MD [facility] App[facility] Type:URO Office Visit Appointment Date:07/12/2024 10:45:00 AM Scheduled Provider:Williams SHEPHERD MD [facility] App[facility] Type:URO Office Visit [facility] evaluzhwuh noteNort [employer] Other evaluation noteNo assessment information available [facility] Work Phone: evaluation note* Diagnosis Chronic diastolic heart failure (CMS/HCC)- Primary Chronic diastolic heart failure 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 (CMS/HCC) Atrial fibrillation Type 2 diabetes mellitus with stage 3a chronic kidney disease, without long-term current use of insulin (HCC) (CMS/HCC) Stage 3a chronic kidney disease (HCC) ([facility]/HCC) Microalbuminuria Proteinuria Former smoker Personal history of tobacco use, presenting hazards to health 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, adult FPC current use of anticoagulant Psoriatic arthropathy ([facility]/HCC) Psoriatic arthropathy Gastroesophageal reflux disease without esophagitis Esophageal reflux documented in this encounter [facility] [employer] Other History general Narrative - Reported* Type Description Date Medical History Arthritis Medical History diabetes mallitus Surgical History cataract surgery [facility] Other Hospital course Narrative No data available for this section [facility] [employer] Hospital Discharge instructions No data available for this section [facility] [place] [employer] Progress note No data available for this section [facility] [place] [employer] Summary Purpose Family History No Family History [...] DATE CREATED AUTHOR 12/20/2022 [facility] DATE CREATED AUTHOR AUTHOR'S ORGANIZ ATION 06/09/2023 [facility] DATE CREATED AUTHOR AUTHOR'S ORGANIZ ATION 09/01/2023 [facility] EPIC DATE CREATED AUTHOR AUTHOR'S ORGANIZ ATION 10/15/2023 [facility] Patient Care team informatio n (unrecognized section and content) Team Status: Active Member Role Status Dates Jayme Perez MD Primary Care Provider Active Team Status: Inactive Member Role Status Dates Jayme Perez MD Primary Care Provider Active Williams Shepherd MD Attending Provider Active Frame Carver Spindle Relationship Specialty Start Date End Date Jayme Perez MD [address] [place] [address] PCP - General Family Medicine 11/25/22 Jayme Perez MD [address] [facility] [place] [address] PCP - ACO Reach 12/05/22 Frame Carver Spindle Relationship Specialty Start Date End Date Jayme Perez MD [address] [place] [address] PCP - General Family Medicine 11/25/22 Jayme Perez MD [address] [place] [address] PCP - ACO Reach 12/05/22 Goals (unrecognized [...] BE BASED ON THE PRIMARY CLINICAL RECORDS. [facility] [employer] [facility]. provides no warranty or guarantee of the accuracy or completeness of information in this document.
[2023-10-20 10:40] LABS: INR 2.33; Prothrombin Time 23.5 sec (9.0-11.6)
== END 2023-10-20 09:52 | disposition home or self-care (01) ==
PROVIDERS: PCP Family Medicine; Visit Provider Family Medicine
DX: I48.0 Paroxysmal atrial fibrillation (principal); Z79.01 Long term (current) use of anticoagulants; Z51.81 Encounter for therapeutic drug level monitoring
CPT/HCPCS: 36415; 85610

== ENCOUNTER 2023-11-17 11:03 | Outpatient (OUT) | payer MEDICARE, SELFPAY ==
[2023-11-17 11:53] LABS: INR 3.98; Prothrombin Time 36.8 sec (9.0-11.6)
== END 2023-11-17 11:04 | disposition home or self-care (01) ==
LOC: LAB 11:05
PROVIDERS: PCP Family Medicine; Visit Provider Family Medicine
DX: I48.0 Paroxysmal atrial fibrillation (principal); Z79.01 Long term (current) use of anticoagulants; Z51.81 Encounter for therapeutic drug level monitoring
CPT/HCPCS: 36415; 85610

== ENCOUNTER 2023-12-01 10:03 | Outpatient (OUT) | payer MEDICARE, SELFPAY ==
--- OUTSIDE RECORDS SUMMARY | 2023-12-01 10:18 | XMS_ITS | CCD ---
Author Organization [facility] Care Team Providers Care All Source 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 Name Role Phone Astrid Baker Unavailable [...] Attending Unavailable CAYETANO, DR CRUM Admdiallo Unavailable ODIN, DR BLANCA Haskins Consulting Unavailable HEMEYER ., [...] able MD Jayme Perez Primary Care Provider [phone] MD Williams Shepherd Attending Provider Williams Shepherd [...] anaphylaxis, Unknown (qualifier value) [facility] (1 source) sulfaSALAzine Drug Allergy rash [facility] Other (1 source) Ciprofloxacin Drug Allergy 03-30-20 13 [facility] Repository (2 sources) Ketorolac; Translations: [Toradol] Drug Allergy 03-30-20 13 [facility] Repository (2 sources) metroNIDAZOLE; Translations: [MetroGel] Drug Allergy 03-30-20 13 [facility] Repository (1 source) NSAIDs Drug allergy (disorder) 03-30-20 13 [facility] Rep[facility] (2 sources) pioglitazone; Translations: [Actos] Drug Allergy 03-30-20 13 [facility] Repository (1 source) Sulfonamides (Antibiotic) Drug allergy (disorder) 03-30-20 13 [facility] Repository (10 sources) Ketorolac; Translations: [ketorolac] Drug Allergy 03-26-20 Unknown (qualifier value), Nausea (finding) [facility] Comment on above: Severe (10 sources) Latex; Translations: [latex] Drug allergy 01-07-20 Blister of skin AND/OR mucosa (finding) [facility] (8 sources) Non-steroidal anti-inflammatory agent; Translations: [NSAIDs] Drug allergy 02-19-20 22 Unknown (qualifier value) [facility] (11 sources) pioglitazone; Translations: [pioglitazone] Drug Allergy 01-07-20 23 Unknown (qualifier value) [facility] (5 sources) Sulfonamides (Antibiotic); Translations: [sulfa drugs] Drug allergy Unknown (qualifier value) [facility] (7 sources) metroNIDAZOLE; Translations: [metronidazole] Drug Allergy 02-19-20 22 Redness of Skin [facility] (2 sources) Sulfonamides (Antibiotic); Translations: [Sulfa (Sulfonamide Antibiotics)] Allergy to substance 03-26-20 Rash [facility] (2 sources) NSAIDS (Non-Steroidal Anti-Inflamma; Translations: [NSAIDS (Non-Steroidal Anti-Inflamma] Allergy to substance 03-26-20 Anaphylaxis [facility] (1 source) Ciprofloxacin Drug Allergy 03-26-20 23 [facility] Repository (1 source) Ketorolac Drug Allergy 03-26-20 [facility] Repository (1 source) pioglitazone Drug Allergy 03-26-20 [facility] Repository (1 source) Non-steroidal anti-inflammatory agent Drug allergy rash [facility] Other (4 sources) Substance with sulfonamide structure and antibacterial mechanism of action (substance) Drug allergy 02-19-20 rash [facility] Other (3 sources) Ketorolac Allergy to substance 01-07-20 Nausea Only [facility] (3 sources) Hydrocodone Bit-Homatrop Mbr Propensity to adverse reactions 08-07-19 Dizziness [facility] (3 sources) Medical Adhesive Remover Drug Allergy 02-19-20 [facility] Medications Current Medications Medication Drug [...] Refill(s) 0 Start Date: 08/13/23 Status: Ordered [id number] 200 actuat albuterol 0.09 mg/actuat metered dose [...] Date: 09/19/20 Status: Ordered Cyanocobalamin-Liver Extract (Vitamin T77-Macvd) Tablet (1 source) Start: 03-26-2023 take 1 tablet by mouth once daily Cyanocobalamin-Liver Extract (Vitamin S12-Jxdlf) Tablet Active 1 TAB PO every day at noon March 25, 2023 11:00pm dextromethorphan hydrobromide 1.5 mg/ml / pyrilamine maleate 1.5 mg/ml oral solution (1 source) Uncompetitive B-upptlc-H-aspar muñoz Receptor Antagonist, Sigma-1 Agonist Start: 07-25-2023 take 10 mL by mouth every eight hours Addison DM 7.5-7.5 MG/5ML 10 mL Orally every 8 hours for 5 days Jul, Active esomeprazole 20 mg oral tablet (8 sources) Proton Pump Inhibitor Start: 08-17-2019 Nexium 20 mg, Oral, As Directed, Refills(s) 0 Start Date: 08/17/19 Status: Ordered Start: 08-17-2019 Nexium Oral, D aily, Refills(s) 0 Start Date: 08/17/19 Status: Ordered take 1 capsule by [facility] once daily esomeprazole (NexIUM) 20 [...] Start: 08-12-2023 take 1 capsule by [facility] every twenty-four hours in the morning [...] 12-12-2022 Chronic Other aftercare (1 source) 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; Translations: [FCI CURRNT USE ANTICOAGULANTS] Onset: 12-11-2022 Episodic Other aftercare (5 sources) Encounter for therapeutic drug level monitoring; Translations: [ENC THERAPEUTC DRUG LEVL MONITORING] Onset: 10-18-2022 Episodic Other aftercare (1 source) Other director long term care (current) drug therapy; 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: [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] Onset: 10-31-2022 Episodic Other aftercare (7 sources) Long-term current use of anticoagulant; Translations: [group home (current) use of anticoagulants] Onset: 07-21-2023 Episodic [...] 12-12-2022 12-12-2022 Episodic Other aftercare (1 source) group home (current) use of oral hypoglycemic drugs; Translations: [FCI USE ORAL HYPOGLYCEMIC DX] Onset: 08-12-2022 Episodic Other aftercare (1 source) group home (current) use of insulin; Translations: [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 ? Peanuts. ? Potato chips, zambian fries, and baked potatoes with skin on. ? Nuts and nut products. ? Chocolate. ? If you regularly take a diuretic medicine, make sure to eat at least 1 or 2 servings of fruits or vegetables that are high in potassium each day. These include: ? Avocado. ? Banana. ? Wendell, prune, carrot, or tomato juice. ? Baked [...] fish oil, or vitamin B6. ? Take ultg-fvz-rjlubyj and prescription medicines only as told by your health care provider. These include supplements. What foods sh (more content not included)... [facility] Urology Office/Clinic Noteon 10-14-2023 Urology Office/Clinic Note Chief Complaint Pt is here for 3 month w/ met w/u & [facility] HPI Staff 6 month follow up w/[facility] Pt canceled Cysto/R retro/possible: ureteroscopy, laser, basket, stent placement 04/07/23 due to passing stones Pt was then seen at [facility] on 08/12/23 due to abdominal pain, pt [...] with voice recognition artificial intelligence software, specifically [employer], [employer] and or CSID. Substitutions may have occurred due to the inherent limitations of voice recognition and artificial intelligence software. 1. Ureteral stone with hydronephrosis (N13.2: Hydronephrosis with renal and ureteral calculous obstruction) [facility] ER visit 08/12/23 due to R [...] bilateral nephrolithiasis. -See #1 3. Anticoagulated (Z79.01: group home (current) use of anticoagulants) Warfarin for A-fib. [...] Information CORA AGUIAR, Williams P, URL [address] [address]- Additional Instructions: 06/2024 with [facility] Patient Education Dietary Guidelines to Help Prevent Kidney Stones I, Charisse Rutherford, personally scribed for Dr. Shepherd on 10/14/2023 09:33:56. Electronically signed by (more content not included)... [facility] Comment on above: Result Comment: Elec tronically Signed By: Williams SHEPHERD MD\.br\Date and Time Signed: 10/14/23 09:38 EDT\.br\Electronically Co-Signed By: Charisse Rutherford\.br\Date and Time Co-Signed: 10/14/23 09:34 EDT RAD - MISCon 10-10-2023 RAD - MISC [id number] .00TIFF [facility] Lab Reportson 08-27-2023 Lab Reports [id number]#1 .00TIFF [facility] Lab Reportson 08-25-2023 Lab Reports [id number]#1 .00TIFF [facility] Lab Reports [id number] .00TIFF [facility] Lab Reportson 08-22-2023 Lab Reports [id number] .00TIFF [facility] Lab Reportson 08-21-2023 Lab Reports [id number] .00TIFF [facility] Lab Reports [id number]#1 .00TIFF [facility] ALL BUNon 08-20-2023 Urea nitrogen [Mass/Vol] 12.0 mg/dL 7.0 - 18.0 mg/dL [facility] ALL CARBON DIOXIDEon CO2 [Moles/Vol] 30.1 mmol/L 21.0 - 32.0 mmol/L [facility] ALL CHLORIDEon 08-20-2023 Chloride [Moles/Vol] 104 mmol/L 98 - 107 mmol/L [facility] ALL PHOSPHOROUSon 08-20-2023 Phosphate [Mass/Vol] 4.1 mg/dL 2.6 - 4.7 mg/dL [facility] ALL SODIUMon 08-20-2023 Sodium [Moles/Vol] 141 mmol/L 136 - 145 mmol/L [facility] ALL URIC ACIDon 08-20-2023 Urate [Mass/Vol] 4.4 mg/dL 2.6 - 6.0 mg/dL [facility] CALCIUMon 08-20-2023 Calcium [Mass/Vol] 9.1 mg/dL 8.5 - 10.1 mg/dL [facility] No Panel Informationon 08-20 [facility] CREATININEon 08-20-2023 Creatinine [Mass/Vol] 0.86 mg/dL 0.55 - 1.02 mg/dL [facility] GFR/1.73 sq M.predicted CKD-EPI (S/P/Bld) [Vol rate/Area] >60 60 - PINF [facility] EGFR-NON AF CHADIAN >60 60 - PINF [facility] Consent for Procedure/Surger yon 08-15-2023 Consent for Procedure/Surgery [id number]#1 .00TIFF [facility] ED Note-Physicianon 08-15-19 ED Note-Physician [id number]#1. 00TIFF [facility] Lab Reportson 08-15-2023 Lab Reports [id number]#1. 00TIFF [facility] Lab Reports [id number]#1 .00TIFF [facility] Lab Reports [id number]#1 .00TIFF [facility] Operative Reporton Operative Report [id number]#1 .00TIFF [facility] RAD - CT Reporton 08-15-2023 RAD - CT Report [id number]#1. 00TIFF [facility] Ambulatory Visit Summaryon 0 08-13-2023 Ambulatory [...] AGUIAR, Williams Venegas Where: [facility] Ju Normal [address] [place] [address]- \.br\ You Need to Schedule the Following Appointments\.br \ Follow Up with ANGELITO AGUIAR, Renato Arzola, URL When: \.br\ Comments:\.br\ sched ureteroscopy\.br \ f/u w/ [facility] scheduled 10/14/23\.br\ Where:\.br\ [facility] [address]br\ [place] [address]-\.br\ [phone]\.br\ Medications\.br\ What How Much When Instructions\.br \ [...] including vitamins, herbs, eye drops, creams, and fzas-tcs-vnknjvv medicines.\.br\ ? \.br\ Any problems you or [...] you to take them.\.br\ ? \.br\ Taking ynxn-hng-zyertrg medicines, vitamins, herbs, and supplements.\.br \ Eating [...] such [facility] Patient Educationon 08-13-19 Patient Education [...] including vitamins, herbs, eye drops, creams, and ncsj-jyu-gxudnxe medicines. ? Any problems you or family [...] tells you to take them. ? Taking hoev-vpa-brhbpum medicines, vitamins, herbs, and supplements. Eating and [...] pieces (more content not included)... Normal [facility] Urology Office/Clinic Noteon 08-13-2023 Urology Office/Clinic Note Chief Complaint Patient is here for follow up to [facility] ER HPI Staff Patient is here for f/u to [facility] ER on 08/12/23 due to [...] Hydronephrosis with renal and ureteral calculous obstruction) [facility] ER visit 08/12/23 due to R [...] abdominal pain) See #1 4. Anticoagulated (Z79.01: group home (current) use of anticoagulants) On warfarin 3mg for a-fib. States she did not take this last night. Advised pt not to take her dose today either. Follow-up With When Contact Information ANGELITO AGUIAR, Renato Arzola, URL [facility] [address] [place] [address]- [phone] Additional Instructions: sched ureteroscopy f/u w/ [facility] scheduled 10/14/23 Patient Education Laser Therapy for Kidney Stones Channing, Amy Gallagher, personally scribed for Dr. Santacruz on 08/13/2023 11:35:03. . Documentation recorded by the scribe, Amy Gallagher, accurately reflects the services(s) I performed and decisions made by me. Authenticated by Dr. Santacruz on 08/13/2023 11:37:02. Problem List/Past Medical History Ongoi (more content not included)... [facility] Comment on above: Result Comment: Elec tronically Signed By: Renato SANTACRUZ MD\.br\Date and Time Signed: 08/13/23 11:37 EST\.br\Electronically Co-Signed By: Amy Gallagher\.br\Date and Time Co-Signed: 08/13/23 11:35 EST COVID/FLU/RSV RT-PCRon 07-25 SARS-CoV-2 (COVID-19) RNA TREASURE+probe Ql (Unsp spec) Negative [facility] [employer] Other COVID/FLU/RSV RT-PCR Negative [facility] [employer] Other COVID/FLU/RSV RT-PCR Positive [facility] [employer] Other Calculus Analysison 03-27-20 23 Calcium oxalate dihydrate Infrared spectroscopy (Stone) [Mass fraction] 100 % Invalid Interpretation Code [facility] Comment on above: Performed By: #### 1 [id number] ####[facility] [address] [place] [address] Color (Stone) Roper Invalid Interpretation Code [facility] Comment on above: Performed By: #### 1 [id number] ####[facility] [address] [place] [address] Composition Comment Invalid Interpretation Code [facility] Comment on above: Result Comment: Perc entage (Represents the % composition) Performed By: #### 1 [id number] ####[facility] [address] [place] [address] Disclaimer: Comment Invalid Interpretation Code [facility] Comment on above: Result Comment: This test was developed and its performance characteristics determined by [facility]. It has not been cleared or approved by the Food and Drug Administration. Performed at: [facility] [address] [id number] PhD Silvestre Esquivel Performed By: #### 1 [id number] ####[facility] [address] [place] [address] Laboratory comment Noam (Report) Comment Invalid Interpretation Code [facility] Comment on above: Result Comment: Coco goode questions regarding Calculi Analysis contact [facility] at: [phone]. Performed By: #### 1 [id number] ####[address] [address] Please Note: Comment Invalid Interpretation Code [facility] Comment on above: Result Comment: Calc javier report will follow via computer, mail or burial vault deliverer and installer delivery. Performed By: #### 1 [id number] ####[address] [place] [address] Size (Stone) [Entitic vol] 6x4 Invalid Interpretation Code [facility] Comment on above: Result Comment: Sing le piece received. Performed By: #### 1 [id number] ####[address] [place] [address] Specimen source subject Nom Comment Invalid Interpretation Code [facility] Comment on above: Result Comment: Not provided Performed By: #### 1 [id number] ####[facility] [address] [place] [address] Stone Photo Comment Invalid Interpretation Code [facility] Comment on above: Result Comment: Phot ograph will follow under a separate cover Performed By: #### 1 [id number] ####[facility] [address] [place] [address] Weight (Stone) 49 mg Invalid Interpretation Code [facility] Comment on above: Performed By: #### 1 [id number] ####[facility] [address] [place] [address] Lab Reportson 03-27-2023 Lab Reports [id number]. 00CD:127 [facility] Activated partial thrombopla stin time (aPTT) in platelet poor plasma by coagulation aOrdered By: Williams Shepherd on 03-26-2023 aPTT Coag (PPP) [Time] 35.9 s 25.1-36.5 [facility] Comment on above: A hematocrit value g reater than 55% may lead to inaccurate results in coagulation testing. Patients having hematocrit values >55% require a special collection tube for coagulation studies. Please contact the laboratory at [phone] for redraw instructions. Basic Metabolic Panelon 03-14 Anion gap [Moles/Vol] 13.0 mmol/L Normal 6.0-15.0 [facility] Comment on above: Performed By: #### P T, BMP, CBC, PTT #### [facility] [address] [place] [address] Calcium [Mass/Vol] 10.0 mg/dL Normal 8.6-10.3 [facility] Comment on above: Result Comment: PERF ORMED BY: [place] [address] PATHOLOGIST IT COMPLIANCE MANAGER BERNIE GRAYSON M.D. Performed By: #### P T, BMP, CBC, PTT #### [facility] [address] Chloride [Moles/Vol] 104 mmol/L Normal 98-107 [facility] Comment on above: Performed By: #### P T, BMP, CBC, PTT #### [facility] [address] [place] [place] [id number] [place] CO2 [Moles/Vol] 30.0 mmol/L Normal 21.0-31.0 [facility] Comment on above: Performed By: #### P T, BMP, CBC, PTT #### [facility] [address] [place] [address] [place] Creatinine [Mass/Vol] 0.85 mg/dL Normal 0.60-1.20 [facility] Comment on above: Performed By: #### P T, BMP, CBC, PTT #### [facility] [address] GFR/1.73 sq M.predicted MDRD (S/P/Bld) [Vol rate/Area] mL/min/{1.73_m2} Normal [facility] Comment on above: Performed By: #### P T, BMP, CBC, PTT #### [facility] [address] Glucose [Mass/Vol] 111 mg/dL High 70-100 [facility] Comment on above: Result Comment: [place] Glucose Reference Range is dependent on time and content of last meal. Glucose of more than 200 mg/dL in a nonstressed, ambulatory subject supports the diagnosis of Diabetes Mellitus. ADA recommended reference range Performed By: #### P T, BMP, CBC, PTT #### [facility] [address] Potassium [Moles/Vol] 5.0 mmol/L Normal 3.5-5.1 [facility] Comment on above: Performed By: #### P T, BMP, CBC, PTT #### [address] Sodium [Moles/Vol] 142 mmol/L Normal 136-145 [facility] Comment on above: Performed By: #### P T, BMP, CBC, PTT #### [facility] [address] Urea nitrogen [Mass/Vol] 12 mg/dL Normal 7-25 [facility] Comment on above: Performed By: #### P T, BMP, CBC, PTT #### [facility] [address] Basophils Auto (Bld) [#/Vol] Ordered By: Williams Shepherd on 03-26-2023 Basophils (Bld) [#/Vol] 0.0 10*3/uL 0.0-0.2 [facility] Basophils/100 WBC Auto (Bld) Ordered By: Williams Shepherd on 03-26-2023 Basophils/100 WBC (Bld) 0.8 % . [facility] Calcium [Mass/volume] in Ser um or PlasmaOrdered By: Williams Shepherd on 03-26-2023 Calcium [Mass/Vol] 10.0 mg/dL 8.6-10.3 [facility] Carbon dioxide, total [Moles /volume] in Serum or PlasmaOrdered By: Williams Shepherd on 03-26-2023 CO2 [Moles/Vol] 30.0 mmol/L 21.0-31.0 [facility] Chloride [Moles/volume] in S fartun or PlasmaOrdered By: Williams Shepherd on 03-26-2023 Chloride [Moles/Vol] 104 mmol/L 98-107 [facility] Complete Blood Count Auto Di ffon 03-26-2023 Basophils (Bld) [#/Vol] 0.0 10*3/uL Normal 0.0-0.2 [facility] Comment on above: Result Comment: PERF ORMED BY: [place] [address] PATHOLOGIST IT COMPLIANCE MANAGER BERNIE GRAYSON M.D. Performed By: #### P T, BMP, CBC, PTT #### [address] Basophils/100 WBC (Bld) 0.8 % Normal . [facility] Comment on above: Performed By: #### P T, BMP, CBC, PTT #### [facility] [address] [place] [address] [place] Eosinophils (Bld) [#/Vol] 0.3 10*3/uL Normal 0.0-0.45 [facility] Comment on above: Performed By: #### P T, BMP, CBC, PTT #### [place] [address] [place] Eosinophils/100 WBC (Bld) 4.3 % Normal . [facility] Comment on above: Performed By: #### P T, BMP, CBC, PTT #### [place] [address] [place] Erythrocyte distribution width (RBC) [Ratio] 14.8 % Normal 11.9-15.3 [facility] Comment on above: Performed By: #### P T, BMP, CBC, PTT #### [address] Hematocrit (Bld) [Volume fraction] 40.3 % Normal 34.0-46.4 [facility] Comment on above: Performed By: #### P T, BMP, CBC, PTT #### [address] Hemoglobin (Bld) [Mass/Vol] 13.3 g/dL Normal 11.8-15.4 [facility] Comment on above: Performed By: #### P T, BMP, CBC, PTT #### [address] Lymphocytes (Bld) [#/Vol] 2.2 10*3/uL Normal 1.00-4.8 [facility] Comment on above: Performed By: #### P T, BMP, CBC, PTT #### [address] Lymphocytes/100 WBC (Bld) 36.9 % Normal . [facility] Comment on above: Performed By: #### P T, BMP, CBC, PTT #### [address] MCH (RBC) [Entitic mass] 31.1 pg Normal 24.7-34.3 [facility] Comment on above: Performed By: #### P T, BMP, CBC, PTT #### [address] MCV (RBC) [Entitic vol] 94.4 fL Normal 80-100 [facility] Comment on above: Performed By: #### P T, BMP, CBC, PTT #### [address] Mean Corpuscular HGB Conc 32.9 g/dL Normal 32.0-35.0 [facility] Comment on above: Performed By: #### P T, BMP, CBC, PTT #### [facility] [address] Monocytes (Bld) [#/Vol] 0.5 10*3/uL Normal 0.0-0.8 [facility] Comment on above: Performed By: #### P T, BMP, CBC, PTT #### [address] Monocytes/100 WBC (Bld) 7.8 % Normal . [facility] Comment on above: Performed By: #### P T, BMP, CBC, PTT #### [address] Neutrophils (Bld) [#/Vol] 3.0 10*3/uL Normal 1.8-7.7 [facility] Comment on above: Performed By: #### P T, BMP, CBC, PTT #### [address] Neutrophils/100 WBC (Bld) 50.2 % Normal . [facility] Comment on above: Performed By: #### P T, BMP, CBC, PTT #### [facility] [address] [place] [address] NRBC% 0.3 /100{WBC} Normal 0-0.5 [facility] Comment on above: Performed By: #### P T, BMP, CBC, PTT #### [facility] [address] [place] [address] Platelet mean volume (Bld) [Entitic vol] 7.1 fL Normal 6.3-10.7 [facility] Comment on above: Performed By: #### P T, BMP, CBC, PTT #### [facility] [address] [place] [address] [place] Platelets (Bld) [#/Vol] 363 10*3/uL Normal 150-450 [facility] Comment on above: Performed By: #### P T, BMP, CBC, PTT #### [facility] [address] [place] [address] [place] RBC (Bld) [#/Vol] 4.27 10*6/uL Normal 3.60-5.00 [facility] Comment on above: Performed By: #### P T, BMP, CBC, PTT #### [facility] [address] WBC (Bld) [#/Vol] 5.9 10*3/uL Normal 3.8-11.6 [facility] Comment on above: Performed By: #### P T, BMP, CBC, PTT #### [facility] [address] [place] [address] Creatinine [Mass/volume] in Serum or PlasmaOrdered By: Williams Shepherd on 03-26-2023 Creatinine [Mass/Vol] 0.85 mg/dL 0.60-1.20 [facility] ECG 12 lead ECGon 03-26-2023 ECG 12 lead ECG [facility] Main [place] [address] [place] [address] Electrocardiograph Report Signed Patient: Wilda Sen MR#: [id number] 8 : 1945 Acct:[id number] Age/Sex: 77 / F ADM Date: 03/26/23 Loc: Room: Type: [facility] Attending Dr: Williams Shepherd MD Ordering Provider: [...] By Maru Whitehead DO 03/26 190 Normal [facility] Eosinophils Auto (Bld) [#/Vo l]Ordered By: Williams Shepherd on 09-13-2023 Eosinophils (Bld) [#/Vol] 0.3 10*3/uL 0.0-0.45 [facility] Eosinophils/100 WBC Auto (Bl d)Ordered By: Williams Shepherd on 03-26-2023 Eosinophils/100 WBC (Bld) 4.3 % . [facility] Erythrocyte distribution wid th Auto (RBC) [Ratio]Ordered By: Williams Shepherd on 03-26-2023 Erythrocyte distribution width (RBC) [Ratio] 14.8 % 11.9-15.3 [facility] Glucose [Mass/volume] in Ser um or PlasmaOrdered By: Williams Shepherd on 03-26-2023 Glucose [Mass/Vol] 111 mg/dL 70-100 [facility] Comment on above: ADA recommended refe rence rangeRandom Glucose Reference Range is dependent on time and content of last meal. Glucose of more than 200 mg/dL in a nonstressed, ambulatory subject supports the diagnosis of Diabetes Mellitus. Hematocrit Auto (Bld) [Volum e fraction]Ordered By: Williams Shepherd on 03-26-2023 Hematocrit (Bld) [Volume fraction] 40.3 % 34.0-46.4 [facility] Hemoglobin [Mass/volume] in BloodOrdered By: Williams Shepherd on 03-26-2023 Hemoglobin (Bld) [Mass/Vol] 13.3 g/dL 11.8-15.4 [facility] INR in Platelet poor plasma by Coagulation assayOrdered By: Williams Shepherd on 03-26-2023 INR Coag (PPP) [Relative time] 2.3 {INR} [facility] Comment on above: INR Therapeutic Rang [...] RBC Auto (Bld) [#/Vol] 5.9 10*3/uL 3.8-11.6 [facility] Lymphocytes Auto (Bld) [#/Vo l]Ordered By: Williams Shepherd on 03-26-2023 Lymphocytes (Bld) [#/Vol] 2.2 10*3/uL 1.00-4.8 [facility] Lymphocytes/100 WBC Auto (Bl d)Ordered By: Williams Shepherd on 03-26-2023 Lymphocytes/100 WBC (Bld) 36.9 % . [facility] MCH Auto (RBC) [Entitic mass ]Ordered By: Williams Shepherd on 03-26-2023 MCH (RBC) [Entitic mass] 31.1 pg 24.7-34.3 [facility] MCHC Auto (RBC) [Mass/Vol]Or dered By: Williams Shepherd on 03-26-2023 MCHC (RBC) [Mass/Vol] 32.9 g/dL 32.0-35.0 [facility] MCV Auto (RBC) [Entitic vol] Ordered By: Williams Shepherd on 03-26-2023 MCV (RBC) [Entitic vol] 94.4 fL 80-100 [facility] Monocytes Auto (Bld) [#/Vol] Ordered By: Williams Shepherd on 03-26-2023 Monocytes (Bld) [#/Vol] 0.5 10*3/uL 0.0-0.8 [facility] Monocytes/100 WBC Auto (Bld) Ordered By: Williams Shepherd on 03-26-2023 Monocytes/100 WBC (Bld) 7.8 % . [facility] Neutrophils Auto (Bld) [#/Vo l]Ordered By: Williams Shepherd on 03-26-2023 Neutrophils (Bld) [#/Vol] 3.0 10*3/uL 1.8-7.7 [facility] Neutrophils/100 WBC Auto (Bl d)Ordered By: Williams Shepherd on 03-26-2023 Neutrophils/100 WBC (Bld) 50.2 % . [facility] No Panel InformationOrdered By: Williams Shepherd on 03-26-2023 Estimated GFR (CKD-EPI) > 60.0 mL/Min [facility] Creatinine Clearance (Chem N/A [facility] Nucleated erythrocytes [Pres ence] in Blood by Automated countOrdered By: Williams Shepherd on 03-26-2023 Nucleated RBC Auto Ql (Bld) 0.3 /100{WBC} 0-0.5 [facility] Partial Thromboplastin Timeo n 03-26-2023 aPTT Coag (Bld) [Time] 35.9 s Normal 25.1-36.5 [facility] Comment on above: Result Comment: A he matocrit value greater than 55% may lead to inaccurate results in coagulation testing. Patients having hematocrit values >55% require a special collection tube for coagulation studies. Please contact the laboratory at [phone] for redraw instructions. PERFORMED BY: [place] [address] PATHOLOGIST IT COMPLIANCE MANAGER BERNIE GRAYSON M.D. Performed By: #### P T, BMP, CBC, PTT #### [address] Platelet mean volume Auto (B ld) [Entitic vol]Ordered By: Williams Shepherd on 03-26-2023 Platelet mean volume (Bld) [Entitic vol] 7.1 fL 6.3-10.7 [facility] Platelets Auto (Bld) [#/Vol] Ordered By: Williams Shepherd on 03-26-2023 Platelets (Bld) [#/Vol] 363 10*3/uL 150-450 [facility] Potassium [Moles/volume] in Serum or PlasmaOrdered By: Williams Shepherd on 03-26-2023 Potassium [Moles/Vol] 5.0 mmol/L 3.5-5.1 [facility] Prothrombin Time INRon 03-26 INR Coag (PPP) [Relative time] 2.3 {INR} Normal [facility] Comment on above: Result Comment: INR [...] T, BMP, CBC, PTT #### [facility] [address] [place] [address] [place] PT Coag (PPP) [Time] 26.6 s High 9.0-12.9 [facility] Comment on above: Result Comment: A he matocrit value greater than 55% may lead to inaccurate results in coagulation testing. Patients having hematocrit values >55% require a special collection tube for coagulation studies. Please contact the laboratory at [phone] for redraw instructions. Performed By: #### P T, BMP, CBC, PTT #### [facility] [address] [place] [address] [facility] Prothrombin time (PT)Ordered By: Williams Shepherd on 03-26-2023 PT Coag (PPP) [Time] 26.6 s 9.0-12.9 [facility] Comment on above: A hematocrit value g reater than 55% may lead to inaccurate results in coagulation testing. Patients having hematocrit values >55% require a special collection tube for coagulation studies. Please contact the laboratory at [phone] for redraw instructions. RBC Auto (Bld) [#/Vol]Ordere d By: Williams Shepherd on 03-26-2023 RBC (Bld) [#/Vol] 4.27 10*6/uL 3.60-5.00 [facility] Serum or plasma anion gap de terminationOrdered By: Williams Shepherd on 03-26-2023 Anion gap [Moles/Vol] 13.0 mmol/L 6.0-15.0 [facility] Sodium [Moles/volume] in Ser um or PlasmaOrdered By: Williams Shepherd on 03-26-2023 Sodium [Moles/Vol] 142 mmol/L 136-145 [facility] Urea nitrogen [Mass/volume] in Serum or PlasmaOrdered By: Williams Shepherd on 03-26-2023 Urea nitrogen [Mass/Vol] 12 mg/dL 7-25 [facility] WBC Auto (Bld) [#/Vol]Ordere d By: Williams Shepherd on 03-26-2023 WBC (Bld) [#/Vol] 5.9 10*3/uL 3.8-11.6 [facility] Consultation Noteon 03-17-20 Consultation Note [id number] .00CD:127 [facility] Lab Reportson 02-12-2023 Lab Reports [id number] .00CD:127 [facility] RAD - MISCon 02-12-2023 RAD - MISC [id number] .00CD:127 [facility] RAD - CT Reporton 02-05-2023 RAD - CT Report [id number] .00CD:127 [facility] RAD - MISCon 02-05-2023 RAD - MISC [id number] .00CD:127 [facility] Ambulatory Visit Summaryon 0 02-03-2023 [...] AGUIAR, Williams Venegas Where: [facility] Patient Educationon 02-04-20 Patient Education Urology Kidney [...] these instructions at home: Medicines ? Take tisb-rph-rdhyakr and prescription medicines only as told by [...] Normal [facility] Urology Office/Clinic Noteon 02-03-2023 Urology Office/Clinic Note Chief Complaint 16 month follow up w/ CT scan [facility] Staff Pt is here today for 16 month follow up w/ CT scan done @[facility] on 01/15/23. CT scan shows partially [...] MD, URL [address] [id number]- Additional Instructions: Patient Education Kidney Stones I, Fanny Bowen, personally scribed for Dr. Shepherd on 02/03/2023 12:04:03. . Documentation recorded by the scribe, Fanny Bowen, accurately reflects the services(s) I performed and decisions made by me. Authenticated by Dr. Shepherd on 02/03/2023 12:37:35. Portions of this record may have been created with voice recognition artificial intelligence software, specifically [employer] and or [employer]. Substitutions may have occurred due to the inherent limitations of voice recognition and artificial intelligence software. Problem List/Past Medical History Ongoing Abdominal pain Anticoagulated Anxiety BMI 27.0-27.9,adult Depression Diabetes Former smoker Frequent urination Heart murmur History of uterine cancer Hx of fci use of blood thin (more content not included)... Normal [facility] Comment on above: Result Comment: Elec tronically Signed By: Williams SHEPHERD MD\.br\Date and Time Signed: 02/03/23 12:39 EDT\.br\Electronically Co-Signed By: Fanny Bowen\.br\Date and Time Co-Signed: 02/03/23 12:04 EDT PROTIMEon 12-02-2022 INR Coag (PPP) [Relative time] 3.62 {INR} Normal [facility] Comment on above: Performed By: #### P T #### [facility] [address] [place] [address] Dr. Tg Fierro INR GUIDELINES SEE BELOW Normal [facility] Comment on above: Result Comment: LAURENCE RED INR: 2.0 - 3.0 CONDITIONS NOT LISTED BELOW 2.5 - 3.5 FOR PROSTHETIC HEART VALVE REPLACEMENT 2.5 - 3.5 RECURRENT THROMBOSIS Performed By: #### P T #### [facility] [address] [place] [address] Dr. Tg Fierro PT Coag (PPP) [Time] 35.7 s Critically high 9.0-11.6 [facility] Comment on above: Performed By: #### P T #### [facility] [address] [place] [address] Dr. Tg Fierro PROTIMEon 11-11-2022 INR Coag (PPP) [Relative time] 1.90 {INR} Normal [facility] Comment on above: Performed By: #### P T #### [facility] [address] [place] [address] Dr. Tg Fierro INR GUIDELINES SEE BELOW Normal [facility] Comment on above: Result Comment: LAURENCE RED INR: 2.0 - 3.0 CONDITIONS NOT LISTED BELOW 2.5 - 3.5 FOR PROSTHETIC HEART VALVE REPLACEMENT 2.5 - 3.5 RECURRENT THROMBOSIS Performed By: #### P T #### [facility] [address] [place] [address] Dr. Tg Fierro PT Coag (PPP) [Time] 19.4 s Critically high 9.0-11.6 [facility] Comment on above: Performed By: #### P T #### [facility] [address] [place] [address] Dr. Tg Fierro CBC AUTO DIFFon 10-25-2022 BASO # 0.0 103/ul Normal 0.0-0.1 [facility] Comment on above: Performed By: #### P T #### [facility] [address] [place] [address] Dr. Tg Fierro Basophils/100 WBC (Bld) 0.5 % Normal 0.2-2.0 [facility] Comment on above: Performed By: #### P T #### [facility] [address] [place] [address] Dr. Tg Fierro EO # 0.2 103/ul Normal 0.0-0.7 [facility] Comment on above: Performed By: #### P T #### [facility] [address] [place] [address] Dr. Tg Fierro Eosinophils/100 WBC (Bld) 2.7 % Normal 0.9-7.0 [facility] Comment on above: Performed By: #### P T #### [facility] [address] [place] [address] Dr. Tg Fierro Erythrocyte distribution width (RBC) [Ratio] 13.4 % Normal 11.0-15.0 [facility] Comment on above: Performed By: #### P T #### [facility] [address] [place] [address] Dr. Tg Fierro Hematocrit (Bld) [Volume fraction] 40.7 % Normal 36.0-48.0 [facility] Comment on above: Performed By: #### P T #### [facility] [address] [place] [address] Dr. Tg Fierro Hemoglobin (Bld) [Mass/Vol] 13.2 g/dL Normal 12.0-16.0 [facility] Comment on above: Performed By: #### P T #### [facility] [address] [place] [address] Dr. Tg Fierro IG # 0.03 10e3/ul Normal 0.00-0.03 [facility] Comment on above: Performed By: #### P T #### [facility] [address] [place] [address] Dr. Tg Fierro IG % 0.5 % Normal 0.0-0.5 [facility] Comment on above: Performed By: #### P T #### [facility] [address] [place] [address] Dr. Tg Fierro LYMPH # 2.1 103/ul Normal 1.2-3.8 [facility] Comment on above: Performed By: #### P T #### [facility] [address] [place] [address] Dr. Tg Fierro Lymphocytes/100 WBC (Bld) 34.9 % Normal 20.5-60.0 [facility] Comment on above: Performed By: #### P T #### [facility] [address] [place] [address] Dr. Tg Fierro MANUAL DIFF REQ NO Normal [facility] Comment on above: Performed By: #### P T #### [facility] [address] [place] [address] Dr. Tg Fierro MCH (RBC) [Entitic mass] 30.5 pg Normal 26.7-34.0 [facility] Comment on above: Performed By: #### P T #### [facility] [address] [place] [address] Dr. Tg Fierro MCHC (RBC) [Mass/Vol] 32.4 g/dL Normal 29.9-35.2 [facility] Comment on above: Performed By: #### P T #### [facility] [address] [place] [address] Dr. Tg Fierro MCV (RBC) [Entitic vol] 94.0 fL Normal 81.0-99.0 [facility] Comment on above: Performed By: #### P T #### [facility] [address] [place] [address] Dr. Tg Fierro MONO # 0.4 103/ul Normal 0.3-0.8 [facility] Comment on above: Performed By: #### P T #### [facility] [address] [place] [address] Dr. Tg Fierro Monocytes/100 WBC (Bld) 7.1 % Normal 1.7-12.0 [facility] Comment on above: Performed By: #### P T #### [facility] [address] [place] [address] Dr. Tg Fierro NEUT # 3.2 103/ul Normal 1.4-6.5 [facility] Comment on above: Performed By: #### P T #### [facility] [address] [address] [address] Tg Fierro Neutrophils/100 WBC (Bld) 54.3 % Normal 43.0-75.0 [facility] Comment on above: Performed By: #### P T #### [facility] [address] [place] [address] Dr. Tg Fierro Platelet mean volume (Bld) [Entitic vol] 8.7 fL Critically low 9.5-13.5 [facility] Comment on above: Performed By: #### P T #### [facility] [address] [address] [address] Tg Fierro PLT 295 103/ul Normal 150-450 [facility] Comment on above: Performed By: #### P T #### [facility] [address] [place] [address] Dr. Tg Fierro RBC 4.33 106/ul Normal 4.20-5.40 [facility] Comment on above: Performed By: #### P T #### [facility] [address] [place] [address] Dr. Tg Fierro WBC 5.9 103/ul Normal 4.0-11.0 [facility] Comment on above: Performed By: #### P T #### [facility] [address] [place] [address] Dr. Tg Fierro PROF 14(COMP METB)on 023 Albumin [Mass/Vol] 3.8 g/dL Normal 3.4-5.0 [facility] Comment on above: Performed By: #### C MP #### [facility] [address] [place] [address] Dr. Tg Fierro Albumin/Globulin [Mass ratio] 1.2 {ratio} Normal [facility] Comment on above: Performed By: #### C MP #### [facility] [address] [place] [address] Dr. Tg Fierro ALP [Catalytic activity/Vol] 49 U/L Normal 46-116 [facility] Comment on above: Performed By: #### C MP #### [facility] [address] [address] [address] Tg Fierro ALT [Catalytic activity/Vol] 21 U/L Normal 14-59 [facility] Comment on above: Performed By: #### C MP #### [facility] [address] [address] [address] Tg Fierro Anion gap [Moles/Vol] 13.3 mmol/L Normal [facility] Comment on above: Performed By: #### C MP #### [facility] [address] [address] [address] Tg Fierro AST [Catalytic activity/Vol] 14 U/L Critically low 15-37 [facility] Comment on above: Performed By: #### C MP #### [facility] [address] [address] [address] Tg Fierro Bilirubin [Mass/Vol] 0.5 mg/dL Normal 0.2-1.0 [facility] Comment on above: Performed By: #### C MP #### [facility] [address] [address] [address] Tg Fierro Calcium [Mass/Vol] 9.5 mg/dL Normal 8.5-10.1 [facility] Comment on above: Performed By: #### C MP #### [facility] [address] [address] [address] Tg Fierro Chloride [Moles/Vol] 104 mmol/L Normal 98-107 [facility] Comment on above: Performed By: #### C MP #### [facility] [address] [address] [address] Tg Fierro CO2 [Moles/Vol] 29.3 mmol/L Normal 21.0-32.0 [facility] Comment on above: Performed By: #### C MP #### [facility] [address] [address] [address] Tg Fierro Creatinine [Mass/Vol] 0.93 mg/dL Normal 0.55-1.02 [facility] Comment on above: Performed By: #### C MP #### [facility] [address] [address] [address] Tg Fierro EGFR-AF CHADIAN >60 Normal >=60 [facility] Comment on above: Performed By: #### C MP #### [facility] [address] [address] [address] Tg Fierro EGFR-NON AF CHADIAN 59 mL/min/1.73m2 Critically low >=60 [facility] Comment on above: Performed By: #### C MP #### [facility] [address] [address] [address] Tg Fierro Globulin (S) [Mass/Vol] 3.2 g/dL Normal [facility] Comment on above: Performed By: #### C MP #### [facility] [address] [address] [address] Tg Fierro Glucose [Mass/Vol] 186 mg/dL Critically high 74-106 [facility] Comment on above: Performed By: #### C MP #### [facility] [address] [address] [address] Tg Fierro Potassium [Moles/Vol] 4.6 mmol/L Normal 3.5-5.1 [facility] Comment on above: Performed By: #### C MP #### [facility] [address] [place] [address] Dr. Tg Fierro Protein [Mass/Vol] 7.0 g/dL Normal 6.4-8.2 [facility] Comment on above: Performed By: #### C MP #### [facility] [address] [address] [address] Tg Fierro Sodium [Moles/Vol] 142 mmol/L Normal 136-145 [facility] Comment on above: Performed By: #### C MP #### [facility] [address] [address] [address] Tg Fierro Urea nitrogen [Mass/Vol] 15.0 mg/dL Normal 7.0-18.0 [facility] Comment on above: Performed By: #### C MP #### [facility] [address] [place] [address] Dr. Tg Fierro Urea nitrogen/Creatinine [Mass ratio] 16.1 mg/mg Normal [facility] Comment on above: Performed By: #### C MP #### [facility] [address] [place] [address] Dr. Tg Fierro SED RATE WESTERGRENon 2022 SED RATE 9 mm/hr Normal <=30 [facility] Comment on above: Performed By: #### C MP #### [facility] [address] [place] [address] Dr. Tg Fierro PROTIMEon 10-14-2022 INR Coag (PPP) [Relative time] 1.94 {INR} Normal [facility] Comment on above: Performed By: #### P T #### [facility] [address] [place] [address] Dr. Tg Fierro INR GUIDELINES SEE BELOW Normal [facility] Comment on above: Result Comment: LAURENCE RED INR: 2.0 - 3.0 CONDITIONS NOT LISTED BELOW 2.5 - 3.5 FOR PROSTHETIC HEART VALVE REPLACEMENT 2.5 - 3.5 RECURRENT THROMBOSIS Performed By: #### P T #### [facility] [address] [place] [address] Dr. Tg Fierro PT Coag (PPP) [Time] 19.8 s Critically high 9.0-11.6 [facility] Comment on above: Performed By: #### P T #### [facility] [address] [place] [address] Dr. Tg Fierro CBC AUTO DIFFon 09-24-2022 BASO # 0.1 103/ul Normal 0.0-0.1 [facility] Comment on above: Performed By: #### P T #### [facility] [address] [place] [address] Dr. Tg Fierro Basophils/100 WBC (Bld) 0.7 % Normal 0.2-2.0 [facility] Comment on above: Performed By: #### P T #### [facility] [address] [place] [address] Dr. Tg Fierro EO # 0.3 103/ul Normal 0.0-0.7 [facility] Comment on above: Performed By: #### P T #### [facility] [address] [address] [address] Tg Fierro Eosinophils/100 WBC (Bld) 3.6 % Normal 0.9-7.0 [facility] Comment on above: Performed By: #### P T #### [facility] [address] [address] [address] Tg Fierro Erythrocyte distribution width (RBC) [Ratio] 13.4 % Normal 11.0-15.0 [facility] Comment on above: Performed By: #### P T #### [facility] [address] [address] [address] Tg Fierro Hematocrit (Bld) [Volume fraction] 38.4 % Normal 36.0-48.0 [facility] Comment on above: Performed By: #### P T #### [facility] [address] [place] [address] Dr. Tg Fierro Hemoglobin (Bld) [Mass/Vol] 12.7 g/dL Normal 12.0-16.0 [facility] Comment on above: Performed By: #### P T #### [facility] [address] [place] [address] Dr. Tg Fierro IG # 0.05 10e3/ul Critically high 0.00-0.03 [facility] Comment on above: Performed By: #### P T #### [facility] [address] [address] [address] Tg Fierro IG % 0.7 % Critically high 0.0-0.5 [facility] Comment on above: Performed By: #### P T #### [facility] [address] [address] [address] Tg Fierro LYMPH # 2.6 103/ul Normal 1.2-3.8 [facility] Comment on above: Performed By: #### P T #### [facility] [address] [place] [address] Dr. Tg Fierro Lymphocytes/100 WBC (Bld) 34.2 % Normal 20.5-60.0 [facility] Comment on above: Performed By: #### P T #### [facility] [address] [place] [address] Dr. Tg Fierro MANUAL DIFF REQ NO Normal [facility] Comment on above: Performed By: #### P T #### [facility] [address] [place] [address] Dr. Tg Fierro MCH (RBC) [Entitic mass] 31.2 pg Normal 26.7-34.0 [facility] Comment on above: Performed By: #### P T #### [facility] [address] [place] [address] Dr. Tg Fierro MCHC (RBC) [Mass/Vol] 33.1 g/dL Normal 29.9-35.2 [facility] Comment on above: Performed By: #### P T #### [facility] [address] [place] [address] Dr. Tg Feirro MCV (RBC) [Entitic vol] 94.3 fL Normal 81.0-99.0 [facility] Comment on above: Performed By: #### P T #### [facility] [address] [place] [address] Dr. Tg Fierro MONO # 0.6 103/ul Normal 0.3-0.8 [facility] Comment on above: Performed By: #### P T #### [facility] [address] [place] [address] Dr. Tg Fierro Monocytes/100 WBC (Bld) 8.1 % Normal 1.7-12.0 [facility] Comment on above: Performed By: #### P T #### [facility] [address] [place] [address] Dr. Tg Fierro NEUT # 4.1 103/ul Normal 1.4-6.5 [facility] Comment on above: Performed By: #### P T #### [facility] [address] [place] [address] Dr. Tg Fierro Neutrophils/100 WBC (Bld) 52.7 % Normal 43.0-75.0 [facility] Comment on above: Performed By: #### P T #### [facility] [address] [place] [address] Dr. gT Fierro Platelet mean volume (Bld) [Entitic vol] 8.7 fL Critically low 9.5-13.5 [facility] Comment on above: Performed By: #### P T #### [facility] [address] [place] [address] Dr. gT Fierro PLT 278 103/ul Normal 150-450 [facility] Comment on above: Performed By: #### P T #### [facility] [address] [place] [address] Dr. Tg Fierro RBC 4.07 106/ul Critically low 4.20-5.40 [facility] Comment on above: Performed By: #### P T #### [facility] [address] [place] [address] Dr. Tg Fierro WBC 7.7 103/ul Normal 4.0-11.0 [facility] Comment on above: Performed By: #### P T #### [facility] [address] [place] [address] Dr. Tg Fierro PROF 14(COMP METB)on 023 Albumin [Mass/Vol] 3.9 g/dL Normal 3.4-5.0 [facility] Comment on above: Performed By: #### C MP #### [facility] [address] [place] [address] Dr. Tg Fierro Albumin/Globulin [Mass ratio] 1.4 {ratio} Normal [facility] Comment on above: Performed By: #### C MP #### [facility] [address] [place] [address] Dr. Tg Fierro ALP [Catalytic activity/Vol] 59 U/L Normal 46-116 [facility] Comment on above: Performed By: #### C MP #### [facility] [address] [place] [address] Dr. Tg Fierro ALT [Catalytic activity/Vol] 21 U/L Normal 14-59 [facility] Comment on above: Performed By: #### C MP #### [facility] [address] [address] [address] Tg Fierro Anion gap [Moles/Vol] 10.8 mmol/L Normal [facility] Comment on above: Performed By: #### C MP #### [facility] [address] [address] [address] Tg Fierro AST [Catalytic activity/Vol] 9 U/L Critically low 15-37 [facility] Comment on above: Performed By: #### C MP #### [facility] [address] [address] [address] Tg Fierro Bilirubin [Mass/Vol] 0.3 mg/dL Normal 0.2-1.0 [facility] Comment on above: Performed By: #### C MP #### [facility] [address] [address] [address] Tg Fierro Calcium [Mass/Vol] 9.1 mg/dL Normal 8.5-10.1 [facility] Comment on above: Performed By: #### C MP #### [facility] [address] [place] [address] Dr. Tg Fierro Chloride [Moles/Vol] 104 mmol/L Normal 98-107 [facility] Comment on above: Performed By: #### C MP #### [facility] [address] [address] [address] Tg Fierro CO2 [Moles/Vol] 28.3 mmol/L Normal 21.0-32.0 [facility] Comment on above: Performed By: #### C MP #### [facility] [address] [address] [address] Tg Fierro Creatinine [Mass/Vol] 0.86 mg/dL Normal 0.55-1.02 [facility] Comment on above: Performed By: #### C MP #### [facility] [address] [address] [address] Tg Fierro EGFR-AF CHADIAN >60 Normal >=60 [facility] Comment on above: Performed By: #### C MP #### [facility] [address] [address] [address] Tg Fierro EGFR-NON AF CHADIAN >60 Normal >=60 [facility] Comment on above: Performed By: #### C MP #### [facility] [address] [address] [address] Tg Fierro Globulin (S) [Mass/Vol] 2.7 g/dL Normal [facility] Comment on above: Performed By: #### C MP #### [facility] [address] [address] [address] Tg Fierro Glucose [Mass/Vol] 120 mg/dL Critically high 74-106 [facility] Comment on above: Performed By: #### C MP #### [facility] [address] [address] [address] Tg Fierro Potassium [Moles/Vol] 4.1 mmol/L Normal 3.5-5.1 [facility] Comment on above: Performed By: #### C MP #### [facility] [address] [place] [address] Dr. Tg Fierro Protein [Mass/Vol] 6.6 g/dL Normal 6.4-8.2 [facility] Comment on above: Performed By: #### C MP #### [facility] [address] [address] [address] Tg Fierro Sodium [Moles/Vol] 139 mmol/L Normal 136-145 [facility] Comment on above: Performed By: #### C MP #### [facility] [address] [address] [address] Tg Fierro Urea nitrogen [Mass/Vol] 13.0 mg/dL Normal 7.0-18.0 [facility] Comment on above: Performed By: #### C MP #### [facility] [address] [address] [address] Tg Fierro Urea nitrogen/Creatinine [Mass ratio] 15.1 mg/mg Normal [facility] Comment on above: Performed By: #### C MP #### [facility] [address] [address] [address] Tg Fierro PROTIMEon 09-24-2022 INR Coag (PPP) [Relative time] 1.35 {INR} Normal [facility] Comment on above: Performed By: #### P T #### [facility] [address] [place] [address] Dr. Tg Fierro INR GUIDELINES SEE BELOW Normal [facility] Comment on above: Result Comment: LAURENCE RED INR: 2.0 - 3.0 CONDITIONS NOT LISTED BELOW 2.5 - 3.5 FOR PROSTHETIC HEART VALVE REPLACEMENT 2.5 - 3.5 RECURRENT THROMBOSIS Performed By: #### P T #### [facility] [address] [place] [address] Dr. Tg Fierro PT Coag (PPP) [Time] 14.1 s Critically high 9.0-11.6 [facility] Comment on above: Performed By: #### P T #### [facility] [address] [place] [address] Dr. Tg Fierro SED RATE Located within [facility] 2022 SED RATE 8 mm/hr Normal <=30 [facility] Comment on above: Performed By: #### C MP #### [facility] [address] [place] [address] Dr. Tg Fierro PROTIMEon 09-09-2022 INR Coag (PPP) [Relative time] 1.23 {INR} Normal [facility] Comment on above: Performed By: #### P T #### [facility] [address] [place] [address] Dr. Tg Fierro INR GUIDELINES SEE BELOW Normal [facility] Comment on above: Result Comment: LAURENCE RED INR: 2.0 - 3.0 CONDITIONS NOT LISTED BELOW 2.5 - 3.5 FOR PROSTHETIC HEART VALVE REPLACEMENT 2.5 - 3.5 RECURRENT THROMBOSIS Performed By: #### P T #### [facility] [address] [place] [address] Dr. Tg Fierro PT Coag (PPP) [Time] 12.9 s Critically high 9.0-11.6 [facility] Comment on above: Performed By: #### P T #### [facility] [address] [place] [address] Dr. Tg Fierro ECHOCARDIO M/2D COMPLETEon 0 09-02-2022 ECHOCARDIO M/2D COMPLETE Patient: WILDA SEN Exam Date: 09/02/2022 : 1945 Gender:F Ordering : DR JAYME PEREZ . Admission #: [id number] Family : Order #: [id number] CLICK HERE TO VIEW EXAM ECHOCARDIOGRAM REPORT [...] M.D. on 09/03/2022 at 17:25 Normal [facility] GLYCOHEMOGLOBIN A1Con 2022 ADA RECOMMENDATION SEE BELOW Normal [facility] Comment on above: Result Comment: ADA RECOMMENDED LIMIT 4.0 - 6.0 ADA THERAPEUTIC TARGET < 7.0 ACTION SUGGESTED > 7.0 Performed By: #### A 1C #### [facility] [address] [place] [address] Dr. Tg Fierro Glucose [Mass/Vol] 148 mg/dL Normal [facility] Comment on above: Performed By: #### A 1C #### [facility] [address] [place] [address] Dr. Tg Fierro HbA1c (Bld) [Mass fraction] 6.8 % Critically high 4.5-6.2 [facility] Comment on above: Performed By: #### A 1C #### [facility] [address] [place] [address] Dr. Tg Fierro CBC AUTO DIFFon 08-05-2022 BASO # 0.1 103/ul Normal 0.0-0.1 [facility] Comment on above: Performed By: #### C BC #### [facility] [address] [place] [address] Dr. Tg Fierro Basophils/100 WBC (Bld) 0.8 % Normal 0.2-2.0 [facility] Comment on above: Performed By: #### C BC #### [facility] [address] [place] [address] Dr. Tg Fierro EO # 0.5 103/ul Normal 0.0-0.7 [facility] Comment on above: Performed By: #### C BC #### [facility] [address] [place] [address] Dr. Tg Fierro Eosinophils/100 WBC (Bld) 7.3 % Critically high 0.9-7.0 [facility] Comment on above: Performed By: #### C BC #### [facility] [address] [place] [address] Dr. Tg Fierro Erythrocyte distribution width (RBC) [Ratio] 13.4 % Normal 11.0-15.0 [facility] Comment on above: Performed By: #### C BC #### [facility] [address] [place] [address] Dr. Tg Fierro Hematocrit (Bld) [Volume fraction] 37.1 % Normal 36.0-48.0 [facility] Comment on above: Performed By: #### C BC #### [facility] [address] [place] [address] Dr. Tg Fierro Hemoglobin (Bld) [Mass/Vol] 12.9 g/dL Normal 12.0-16.0 [facility] Comment on above: Performed By: #### C BC #### [facility] [address] [place] [address] Dr. Tg Fierro IG # 0.03 10e3/ul Normal 0.00-0.03 [facility] Comment on above: Performed By: #### C BC #### [facility] [address] [place] [address] Dr. Tg Fierro IG % 0.5 % Normal 0.0-0.5 [facility] Comment on above: Performed By: #### C BC #### [facility] [address] [place] [address] Dr. Tg Fierro LYMPH # 2.3 103/ul Normal 1.2-3.8 [facility] Comment on above: Performed By: #### C BC #### [facility] [address] [place] [address] Dr. Tg Fierro Lymphocytes/100 WBC (Bld) 34.9 % Normal 20.5-60.0 [facility] Comment on above: Performed By: #### C BC #### [facility] [address] [place] [address] Dr. Tg Fierro MANUAL DIFF REQ NO Normal [facility] Comment on above: Performed By: #### C BC #### [facility] [address] [place] [address] Dr. Tg Fierro MCH (RBC) [Entitic mass] 31.0 pg Normal 26.7-34.0 [facility] Comment on above: Performed By: #### C BC #### [facility] [address] [place] [address] Dr. Tg Fierro MCHC (RBC) [Mass/Vol] 34.8 g/dL Normal 29.9-35.2 [facility] Comment on above: Performed By: #### C BC #### [facility] [address] [address] [address] Tg Fierro MCV (RBC) [Entitic vol] 89.2 fL Normal 81.0-99.0 [facility] Comment on above: Performed By: #### C BC #### [facility] [address] [address] [address] Tg Fierro MONO # 0.4 103/ul Normal 0.3-0.8 [facility] Comment on above: Performed By: #### C BC #### [facility] [address] [place] [address] Dr. Tg Fierro Monocytes/100 WBC (Bld) 6.1 % Normal 1.7-12.0 [facility] Comment on above: Performed By: #### C BC #### [facility] [address] [place] [address] Dr. Tg Fierro NEUT # 3.3 103/ul Normal 1.4-6.5 [facility] Comment on above: Performed By: #### C BC #### [facility] [address] [place] [address] Dr. Tg Fierro Neutrophils/100 WBC (Bld) 50.4 % Normal 43.0-75.0 [facility] Comment on above: Performed By: #### C BC #### [facility] [address] [address] [address] Tg Fierro Platelet mean volume (Bld) [Entitic vol] 8.6 fL Critically low 9.5-13.5 [facility] Comment on above: Performed By: #### C BC #### [facility] [address] [place] [address] Dr. Tg Fierro PLT 336 103/ul Normal 150-450 [facility] Comment on above: Performed By: #### C BC #### [facility] [address] [place] [address] Dr. Tg Fierro RBC 4.16 106/ul Critically low 4.20-5.40 [facility] Comment on above: Performed By: #### C BC #### [facility] [address] [place] [address] Dr. Tg Fierro WBC 6.4 103/ul Normal 4.0-11.0 [facility] Comment on above: Performed By: #### C BC #### [facility] [address] [place] [address] Dr. Tg Fierro PROF 14(COMP METB)on 023 Albumin [Mass/Vol] 3.9 g/dL Normal 3.4-5.0 [facility] Comment on above: Performed By: #### P T #### [facility] [address] [place] [address] Dr. Tg Fierro Albumin/Globulin [Mass ratio] 1.3 {ratio} Normal [facility] Comment on above: Performed By: #### P T #### [facility] [address] [place] [address] Dr. Tg Fierro ALP [Catalytic activity/Vol] 60 U/L Normal 46-116 [facility] Comment on above: Performed By: #### P T #### [facility] [address] [place] [address] Dr. Tg Fierro ALT [Catalytic activity/Vol] 21 U/L Normal 14-59 [facility] Comment on above: Performed By: #### P T #### [facility] [address] [place] [address] Dr. Tg Fierro Anion gap [Moles/Vol] 15.2 mmol/L Normal [facility] Comment on above: Performed By: #### P T #### [facility] [address] [place] [address] Dr. Tg Fierro AST [Catalytic activity/Vol] 14 U/L Critically low 15-37 [facility] Comment on above: Performed By: #### P T #### [facility] [address] [place] [address] Dr. Tg Fierro Bilirubin [Mass/Vol] 0.4 mg/dL Normal 0.2-1.0 [facility] Comment on above: Performed By: #### P T #### [facility] [address] [address] [address] Tg Fierro Calcium [Mass/Vol] 9.3 mg/dL Normal 8.5-10.1 [facility] Comment on above: Performed By: #### P T #### [facility] [address] [address] [address] Tg Fierro Chloride [Moles/Vol] 102 mmol/L Normal 98-107 [facility] Comment on above: Performed By: #### P T #### [facility] [address] [address] [address] Tg Fierro CO2 [Moles/Vol] 26.8 mmol/L Normal 21.0-32.0 [facility] Comment on above: Performed By: #### P T #### [facility] [address] [address] [address] Tg Fierro Creatinine [Mass/Vol] 0.74 mg/dL Normal 0.55-1.02 [facility] Comment on above: Performed By: #### P T #### [facility] [address] [address] [address] Tg Fierro EGFR-AF CHADIAN >60 Normal >=60 [facility] Comment on above: Performed By: #### P T #### [facility] [address] [address] [address] Tg Fierro EGFR-NON AF CHADIAN >60 Normal >=60 [facility] Comment on above: Performed By: #### P T #### [facility] [address] [address] [address] Tg Fierro Globulin (S) [Mass/Vol] 3.1 g/dL Normal [facility] Comment on above: Performed By: #### P T #### [facility] [address] [address] [address] Tg Fierro Glucose [Mass/Vol] 148 mg/dL Critically high 74-106 [facility] Comment on above: Performed By: #### P T #### [facility] [address] [address] [address] Tg Fierro Potassium [Moles/Vol] 4.0 mmol/L Normal 3.5-5.1 [facility] Comment on above: Performed By: #### P T #### [facility] [address] [address] [address] Tg Fierro Protein [Mass/Vol] 7.0 g/dL Normal 6.4-8.2 [facility] Comment on above: Performed By: #### P T #### [facility] [address] [address] [address] Tg Fierro Sodium [Moles/Vol] 140 mmol/L Normal 136-145 [facility] Comment on above: Performed By: #### P T #### [facility] [address] [place] [address] Dr. Tg Fierro Urea nitrogen [Mass/Vol] 12.0 mg/dL Normal 7.0-18.0 [facility] Comment on above: Performed By: #### P T #### [facility] [address] [place] [address] Dr. Tg Fierro Urea nitrogen/Creatinine [Mass ratio] 16.2 mg/mg Normal [facility] Comment on above: Performed By: #### P T #### [facility] [address] [place] [address] Dr. Tg iFerro [facility] 30 mm/hr Normal <=30 [facility] Comment on above: Performed By: #### S EDR #### [facility] [address] [address] [address] Tg Fierro CBC AUTO DIFFon 04-15-2022 BASO # 0.1 103/ul Normal 0.0-0.1 [facility] Comment on above: Performed By: #### C BC #### [facility] [address] [address] [address] Tg Fierro Basophils/100 WBC (Bld) 0.6 % Normal 0.2-2.0 [facility] Comment on above: Performed By: #### C BC #### [facility] [address] [place] [address] Dr. Tg Fierro EO # 0.2 103/ul Normal 0.0-0.7 [facility] Comment on above: Performed By: #### C BC #### [facility] [address] [place] [address] Dr. Tg Fierro Eosinophils/100 WBC (Bld) 3.1 % Normal 0.9-7.0 [facility] Comment on above: Performed By: #### C BC #### [facility] [address] [place] [address] Dr. Tg Fierro Erythrocyte distribution width (RBC) [Ratio] 13.6 % Normal 11.0-15.0 [facility] Comment on above: Performed By: #### C BC #### [facility] [address] [place] [address] Dr. Tg Fierro Hematocrit (Bld) [Volume fraction] 42.3 % Normal 36.0-48.0 [facility] Comment on above: Performed By: #### C BC #### [facility] [address] [place] [address] Dr. Tg Fierro Hemoglobin (Bld) [Mass/Vol] 13.2 g/dL Normal 12.0-16.0 [facility] Comment on above: Performed By: #### C BC #### [facility] [address] [place] [address] Dr. Tg Fierro IG # 0.04 10e3/ul Critically high 0.00-0.03 [facility] Comment on above: Performed By: #### C BC #### [facility] [address] [place] [address] Dr. Tg Fierro IG % 0.5 % Normal 0.0-0.5 [facility] Comment on above: Performed By: #### C BC #### [facility] [address] [place] [address] Dr. Tg Fierro LYMPH # 2.5 103/ul Normal 1.2-3.8 [facility] Comment on above: Performed By: #### C BC #### [facility] [address] [place] [address] Dr. Tg Fierro Lymphocytes/100 WBC (Bld) 31.6 % Normal 20.5-60.0 [facility] Comment on above: Performed By: #### C BC #### [facility] [address] [place] [address] Dr. Tg Fierro MANUAL DIFF REQ NO Normal [facility] Comment on above: Performed By: #### C BC #### [facility] [address] [place] [address] Dr. Tg Fierro MCH (RBC) [Entitic mass] 30.3 pg Normal 26.7-34.0 [facility] Comment on above: Performed By: #### C BC #### [facility] [address] [place] [address] Dr. Tg Fierro MCHC (RBC) [Mass/Vol] 31.2 g/dL Normal 29.9-35.2 [facility] Comment on above: Performed By: #### C BC #### [facility] [address] [place] [address] Dr. Tg Fierro MCV (RBC) [Entitic vol] 97.0 fL Normal 81.0-99.0 [facility] Comment on above: Performed By: #### C BC #### [facility] [address] [place] [address] Dr. Tg Fierro MONO # 0.5 103/ul Normal 0.3-0.8 [facility] Comment on above: Performed By: #### C BC #### [facility] [address] [place] [address] Dr. Tg Fierro Monocytes/100 WBC (Bld) 6.3 % Normal 1.7-12.0 [facility] Comment on above: Performed By: #### C BC #### [facility] [address] [place] [address] Dr. Tg Fierro NEUT # 4.5 103/ul Normal 1.4-6.5 [facility] Comment on above: Performed By: #### C BC #### [facility] [address] [place] [address] Dr. Tg Fierro Neutrophils/100 WBC (Bld) 57.9 % Normal 43.0-75.0 [facility] Comment on above: Performed By: #### C BC #### [facility] [address] [place] [address] Dr. Tg Fierro Platelet mean volume (Bld) [Entitic vol] 8.6 fL Critically low 9.5-13.5 [facility] Comment on above: Performed By: #### C BC #### [facility] [address] [place] [address] Dr. Tg Fierro PLT 295 103/ul Normal 150-450 [facility] Comment on above: Performed By: #### C BC #### [facility] [address] [place] [address] Dr. Tg Fierro RBC 4.36 106/ul Normal 4.20-5.40 [facility] Comment on above: Performed By: #### C BC #### [facility] [address] [place] [address] Dr. Tg Fierro WBC 7.8 103/ul Normal 4.0-11.0 [facility] Comment on above: Performed By: #### C BC #### [facility] [address] [place] [address] Dr. Tg Fierro PROF 14(COMP METB)on 022 Albumin [Mass/Vol] 4.5 g/dL Normal 3.4-5.0 [facility] Comment on above: Performed By: #### C MP #### [facility] [address] [place] [address] Dr. Tg Fierro Albumin/Globulin [Mass ratio] 1.5 {ratio} Normal [facility] Comment on above: Performed By: #### C MP #### [facility] [address] [place] [address] Dr. Tg Fierro ALP [Catalytic activity/Vol] 62 U/L Normal 46-116 [facility] Comment on above: Performed By: #### C MP #### [facility] [address] [place] [address] Dr. Tg Fierro ALT [Catalytic activity/Vol] 25 U/L Normal 14-59 [facility] Comment on above: Performed By: #### C MP #### [facility] [address] [address] [address] Tg Fierro Anion gap [Moles/Vol] 10.6 mmol/L Normal [facility] Comment on above: Performed By: #### C MP #### [facility] [address] [address] [address] Tg Fierro AST [Catalytic activity/Vol] 12 U/L Critically low 15-37 [facility] Comment on above: Performed By: #### C MP #### [facility] [address] [address] [address] Tg Fierro Bilirubin [Mass/Vol] 0.5 mg/dL Normal 0.2-1.0 [facility] Comment on above: Performed By: #### C MP #### [facility] [address] [address] [address] Tg Fierro Calcium [Mass/Vol] 9.8 mg/dL Normal 8.5-10.1 [facility] Comment on above: Performed By: #### C MP #### [facility] [address] [address] [address] Tg Fierro Chloride [Moles/Vol] 102 mmol/L Normal 98-107 [facility] Comment on above: Performed By: #### C MP #### [facility] [address] [address] [address] Tg Fierro CO2 [Moles/Vol] 31.8 mmol/L Normal 21.0-32.0 [facility] Comment on above: Performed By: #### C MP #### [facility] [address] [address] [address] Tg Fierro Creatinine [Mass/Vol] 0.88 mg/dL Normal 0.55-1.02 [facility] Comment on above: Performed By: #### C MP #### [facility] [address] [address] [address] Tg Fierro EGFR-AF CHADIAN >60 Normal >=60 [facility] Comment on above: Performed By: #### C MP #### [facility] [address] [address] [address] Tg Fierro EGFR-NON AF CHADIAN >60 Normal >=60 [facility] Comment on above: Performed By: #### C MP #### [facility] [address] [address] [address] Tg Fierro Globulin (S) [Mass/Vol] 3.1 g/dL Normal [facility] Comment on above: Performed By: #### C MP #### [facility] [address] [address] [address] Tg Fierro Glucose [Mass/Vol] 187 mg/dL Critically high 74-106 [facility] Comment on above: Performed By: #### C MP #### [facility] [address] [address] [address] Tg Fierro Potassium [Moles/Vol] 4.4 mmol/L Normal 3.5-5.1 [facility] Comment on above: Performed By: #### C MP #### [facility] [address] [address] [address] Tg Fierro Protein [Mass/Vol] 7.6 g/dL Normal 6.4-8.2 [facility] Comment on above: Performed By: #### C MP #### [facility] [address] [address] [address] Tg Fierro Sodium [Moles/Vol] 140 mmol/L Normal 136-145 [facility] Comment on above: Performed By: #### C MP #### [facility] [address] [address] [address] Tg Fierro Urea nitrogen [Mass/Vol] 14.0 mg/dL Normal 7.0-18.0 [facility] Comment on above: Performed By: #### C MP #### [facility] [address] [address] [address] Tg Fierro Urea nitrogen/Creatinine [Mass ratio] 15.9 mg/mg Normal [facility] Comment on above: Performed By: #### C MP #### [facility] [address] [place] [address] Dr. Tg Fierro SED RATE WESTERGRENon 2021 SED RATE 5 mm/hr Normal <=30 [facility] Comment on above: Performed By: #### S EDR #### [facility] [address] [place] [address] Dr. Tg Fierro CBC AUTO DIFFon 02-07-2022 BASO # 0.0 103/ul Normal 0.0-0.1 [facility] Comment on above: Performed By: #### P T #### [facility] [address] [place] [address] Dr. Tg Fierro Basophils/100 WBC (Bld) 0.6 % Normal 0.2-2.0 [facility] Comment on above: Performed By: #### P T #### [facility] [address] [place] [address] Dr. Tg Fierro EO # 0.4 103/ul Normal 0.0-0.7 [facility] Comment on above: Performed By: #### P T #### [facility] [address] [place] [address] Dr. Tg Fierro Eosinophils/100 WBC (Bld) 5.4 % Normal 0.9-7.0 [facility] Comment on above: Performed By: #### P T #### [facility] [address] [place] [address] Dr. Tg Fierro Erythrocyte distribution width (RBC) [Ratio] 13.5 % Normal 11.0-15.0 [facility] Comment on above: Performed By: #### P T #### [facility] [address] [place] [address] Dr. Tg Fierro Hematocrit (Bld) [Volume fraction] 39.4 % Normal 36.0-48.0 [facility] Comment on above: Performed By: #### P T #### [facility] [address] [place] [address] Dr. Tg Fierro Hemoglobin (Bld) [Mass/Vol] 12.8 g/dL Normal 12.0-16.0 [facility] Comment on above: Performed By: #### P T #### [facility] [address] [place] [address] Dr. Tg Fierro IG # 0.02 10e3/ul Normal 0.00-0.03 [facility] Comment on above: Performed By: #### P T #### [facility] [address] [place] [address] Dr. Tg Fierro IG % 0.3 % Normal 0.0-0.5 [facility] Comment on above: Performed By: #### P T #### [facility] [address] [place] [address] Dr. Tg Fierro LYMPH # 2.4 103/ul Normal 1.2-3.8 [facility] Comment on above: Performed By: #### P T #### [facility] [address] [place] [address] Dr. Tg Fierro Lymphocytes/100 WBC (Bld) 36.2 % Normal 20.5-60.0 [facility] Comment on above: Performed By: #### P T #### [facility] [address] [place] [address] Dr. Tg Fierro MANUAL DIFF REQ NO Normal [facility] Comment on above: Performed By: #### P T #### [facility] [address] [place] [address] Dr. Tg Fierro MCH (RBC) [Entitic mass] 31.0 pg Normal 26.7-34.0 [facility] Comment on above: Performed By: #### P T #### [facility] [address] [place] [address] Dr. Tg Fierro MCHC (RBC) [Mass/Vol] 32.5 g/dL Normal 29.9-35.2 [facility] Comment on above: Performed By: #### P T #### [facility] [address] [place] [address] Dr. Tg Fierro MCV (RBC) [Entitic vol] 95.4 fL Normal 81.0-99.0 [facility] Comment on above: Performed By: #### P T #### [facility] [address] [place] [address] Dr. Tg Fierro MONO # 0.5 103/ul Normal 0.3-0.8 [facility] Comment on above: Performed By: #### P T #### [facility] [address] [place] [address] Dr. Tg Fierro Monocytes/100 WBC (Bld) 8.0 % Normal 1.7-12.0 [facility] Comment on above: Performed By: #### P T #### [facility] [address] [place] [address] Dr. Tg Fierro NEUT # 3.3 103/ul Normal 1.4-6.5 [facility] Comment on above: Performed By: #### P T #### [facility] [address] [place] [address] Dr. Tg Fierro Neutrophils/100 WBC (Bld) 49.5 % Normal 43.0-75.0 [facility] Comment on above: Performed By: #### P T #### [facility] [address] [place] [address] Dr. Tg Fierro Platelet mean volume (Bld) [Entitic vol] 8.7 fL Critically low 9.5-13.5 [facility] Comment on above: Performed By: #### P T #### [facility] [address] [place] [address] Dr. Tg Fierro PLT 276 103/ul Normal 150-450 [facility] Comment on above: Performed By: #### P T #### [facility] [address] [place] [address] Dr. Tg Fierro RBC 4.13 106/ul Critically low 4.20-5.40 [facility] Comment on above: Performed By: #### P T #### [facility] [address] [place] [address] Dr. Tg Fierro WBC 6.7 103/ul Normal 4.0-11.0 [facility] Comment on above: Performed By: #### P T #### [facility] [address] [place] [address] Dr. Tg Fierro GLYCOHEMOGLOBIN A1Con 2021 ADA RECOMMENDATION SEE BELOW Normal [facility] Comment on above: Result Comment: ADA RECOMMENDED LIMIT 4.0 - 6.0 ADA THERAPEUTIC TARGET < 7.0 ACTION SUGGESTED > 7.0 Performed By: #### A 1C #### [facility] [address] [address] [address] Tg Fierro Glucose [Mass/Vol] 151 mg/dL Normal [facility] Comment on above: Performed By: #### A 1C #### [facility] [address] [address] [address] Tg Fierro HbA1c (Bld) [Mass fraction] 6.9 % Critically high 4.5-6.2 [facility] Comment on above: Performed By: #### A 1C #### [facility] [address] [place] [address] Dr. Tg Fierro PROF 14(COMP METB)on 022 Albumin [Mass/Vol] 3.8 g/dL Normal 3.4-5.0 [facility] Comment on above: Performed By: #### P T #### [facility] [address] [address] [address] Tg Fierro Albumin/Globulin [Mass ratio] 1.3 {ratio} Normal [facility] Comment on above: Performed By: #### P T #### [facility] [address] [address] [address] Tg Fierro ALP [Catalytic activity/Vol] 43 U/L Critically low 46-116 [facility] Comment on above: Performed By: #### P T #### [facility] [address] [address] [address] Tg Fierro ALT [Catalytic activity/Vol] 19 U/L Normal 14-59 [facility] Comment on above: Performed By: #### P T #### [facility] [address] [address] [address] Tg Fierro Anion gap [Moles/Vol] 13.7 mmol/L Normal [facility] Comment on above: Performed By: #### P T #### [facility] [address] [place] [address] Dr. Tg Fierro AST [Catalytic activity/Vol] 11 U/L Critically low 15-37 [facility] Comment on above: Performed By: #### P T #### [facility] [address] [place] [address] Dr. Tg Fierro Bilirubin [Mass/Vol] 0.4 mg/dL Normal 0.2-1.0 [facility] Comment on above: Performed By: #### P T #### [facility] [address] [place] [address] Dr. gT Fierro Calcium [Mass/Vol] 9.1 mg/dL Normal 8.5-10.1 [facility] Comment on above: Performed By: #### P T #### [facility] [address] [place] [address] Dr. Tg Fierro Chloride [Moles/Vol] 104 mmol/L Normal 98-107 [facility] Comment on above: Performed By: #### P T #### [facility] [address] [place] [address] Dr. Tg Fierro CO2 [Moles/Vol] 28.5 mmol/L Normal 21.0-32.0 [facility] Comment on above: Performed By: #### P T #### [facility] [address] [place] [address] Dr. Tg Fierro Creatinine [Mass/Vol] 0.77 mg/dL Normal 0.55-1.02 [facility] Comment on above: Performed By: #### P T #### [facility] [address] [place] [address] Dr. Tg Fierro EGFR-AF CHADIAN >60 Normal >=60 [facility] Comment on above: Performed By: #### P T #### [facility] [address] [place] [address] Dr. Tg Fierro EGFR-NON AF CHADIAN >60 Normal >=60 [facility] Comment on above: Performed By: #### P T #### [facility] [address] [place] [address] Dr. Tg Fierro Globulin (S) [Mass/Vol] 3.0 g/dL Normal [facility] Comment on above: Performed By: #### P T #### [facility] [address] [place] [address] Dr. Tg Fierro Glucose [Mass/Vol] 124 mg/dL Critically high 74-106 [facility] Comment on above: Performed By: #### P T #### [facility] [address] [address] [address] Tg Fierro Potassium [Moles/Vol] 4.2 mmol/L Normal 3.5-5.1 [facility] Comment on above: Performed By: #### P T #### [facility] [address] [place] [address] Dr. Tg Fierro Protein [Mass/Vol] 6.8 g/dL Normal 6.4-8.2 [facility] Comment on above: Performed By: #### P T #### [facility] [address] [place] [address] Dr. Tg Fierro Sodium [Moles/Vol] 142 mmol/L Normal 136-145 [facility] Comment on above: Performed By: #### P T #### [facility] [address] [place] [address] Dr. Tg Fierro Urea nitrogen [Mass/Vol] 12.0 mg/dL Normal 7.0-18.0 [facility] Comment on above: Performed By: #### P T #### [facility] [address] [place] [address] Dr. Tg Fierro Urea nitrogen/Creatinine [Mass ratio] 15.6 mg/mg Normal [facility] Comment on above: Performed By: #### P T #### [facility] [address] [address] [address] Tg Fierro SED RATE Located within [facility] 2021 SED RATE 8 mm/hr Normal <=30 [facility] Comment on above: Performed By: #### C MP #### [facility] [address] [place] [address] Dr. Tg Fierro COVID Quick Testingon 2020 Result Positive [facility] [employer] Other Vital Signs Date Time Vital Sign Value Performing Clinician Facility 10-14-2023 09:09-0400 Body temperature 98.6 [degF] Williams SHEPHERD [facility] 10-14-2023 09:09-0400 Diastolic blood pressure 61 mm[Hg] Williams SHEPHERD [facility] 10-14-2023 09:09-0400 Heart rate 80 /min Williams SHEPHERD [facility] 10-14-2023 09:09-0400 Respiratory rate 16 /min Williams SHEPHERD [facility] 10-14-2023 09:09-0400 Systolic blood pressure 115 mm[Hg] Williams SHEPHERD [facility] 08-13-2023 10:47-0500 Blood Pressure Location Renato SANTACRUZ [facility] 08-13-2023 10:47-0500 Diastolic blood pressure 62 mm[Hg] Renato SANTACRUZ [facility] 08-13-2023 10:47-0500 Heart rate 82 /min Renato SANTACRUZ [facility] 08-13-2023 10:47-0500 Respiratory rate 16 /min Renato SANTACRUZ [facility] 08-13-2023 10:47-0500 Systolic blood pressure 105 mm[Hg] Renato SANTACRUZ [facility] 08-07-2023 09:48-0500 Body height 160 cm Jayme Perez MD Work Phone: [facility] [employer] 08-07-2023 09:48-0500 Body mass index (BMI) [Ratio] 24.45 kg/m2 Jayme Perez MD Work Phone: [facility] 08-07-2023 09:48-0500 Body weight 62.6 kg Jayme Perez MD Work Phone: [facility] 08-07-2023 09:48-0500 Heart rate 57 /min Jayme Perez MD Work Phone: [facility] 08-07-2023 09:48-0500 SaO2% (BldA) [Mass fraction] 98 % Jayme Perez MD Work Phone: [facility] [employer] 07-25-2023 09:20-0500 Body height 160.02 cm Lou Glover Other [employer] Other 07-25-2023 09:20-0500 Body mass index (BMI) [Ratio] 23.91 kg/m2 Lou Glover Other [employer] Other 07-25-2023 09:20-0500 Body temperature 97.7 [degF] Lou Glover Other [employer] Other 07-25-2023 09:20-0500 Body weight 61.24 kg Lou Glover Other [employer] Other 07-25-2023 09:20-0500 Diastolic blood pressure 74 mm[Hg] Lou Glover Other [employer] Other 07-25-2023 09:20-0500 Respiratory rate 18 /min Lou Glover Other [employer] Other 07-25-2023 09:20-0500 SaO2% (BldA) [Mass fraction] 96 % Lou Glover Other [employer] Other 07-25-2023 09:20-0500 Systolic blood pressure 120 mm[Hg] Lou Glover Other [employer] Other 03-26-2023 13:15-0400 Body height 160.02 cm MD Jayme Perez Work Phone: [facility] 03-26-2023 13:15-0400 Body temperature 98.2 [degF] MD Jayme Perez Work Phone: [facility] 03-26-2023 13:15-0400 Body weight 66 kg MD Jayme Perez Work Phone: [facility] 03-26-2023 13:15-0400 Diastolic blood pressure 71 mm[Hg] MD Jayme Perez Work Phone: [facility] 03-26-2023 13:15-0400 Heart rate 87 /min MD Jayme Perez Work Phone: [facility] 03-26-2023 13:15-0400 Respiratory rate 16 /min MD Jayme Perez Work Phone: [facility] 03-26-2023 13:15-0400 SaO2% (BldA) [Mass fraction] 97 % MD Jayme Perez Work Phone: [facility] 03-26-2023 13:15-0400 Systolic blood pressure 117 mm[Hg] MD Jayme Perez Work Phone: [facility] 05-21-2021 13:15-0500 Body height 160.02 cm Astrid Baker Other [employer] Other 05-21-2021 13:15-0500 Body mass index (BMI) [Ratio] 23.91 kg/m2 Astrid Baker Other [employer] Other 05-21-2021 13:15-0500 Body temperature 97.3 [degF] Astrid Baker Other [employer] Other 05-21-2021 13:15-0500 Body weight 61.24 kg Astrid Baker Other [employer] Other 05-21-2021 13:15-0500 SaO2% (BldA) [Mass fraction] 94 % Astrid Baker Other [employer] Other Encounters Encounter Date Encounter Type Care Provider Facility Start: 10-14-2023 End: 10-15-2023 ambulatory Williams SHEPHERD Facility:[facility] Start: 10-14-2023 End: 10-14-2023 Patient encounter procedure Williams SHEPHERD [facility] Start: 09-01-2023 End: 09-01-2023 ambulatory FELICIA FARMER Not Available Start: 08-20-2023 Clinisync Result Encounter Generic External Data Provider [facility] External Department Unsolicited Start: 08-20-2023 Clinisync Result Encounter Generic External Data Provider [facility] External Department Unsolicited Start: 08-14-2023 End: 08-15-2023 ambulatory Renato SANTACRUZ Facility:[id number] Start: 08-13-2023 End: 08-14-2023 ambulatory Renato SANTACRUZ Facility:[facility] Start: 08-13-2023 End: 08-13-2023 Patient encounter procedure Renato SANTACRUZ [facility] Start: 08-07-2023 End: 08-07-2023 ambulatory JAYME PEREZ Not Available Start: 08-07-2023 End: 08-07-2023 Office outpatient visit 25 minutes Edward J Hemeyer MD Work Phone: [facility] Comment on above: Chronic diastolic he art failure (CMS/HCC) (Primary Dx); 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 (CMS/HCC); Type 2 diabetes mellitus with stage 3a chronic kidney disease, without long-term current use of insulin (HCC) (CMS/HCC); Stage 3a chronic kidney disease (HCC) (CMS/HCC); Microalbuminuria; Former smoker; 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, adult; group home current use of anticoagulant; Psoriatic arthropathy (CMS/HCC); Gastroesophageal reflux disease without esophagitis Start: 07-30-2023 End: 07-30-2023 ambulatory JAYME PEREZ Not Available Start: 07-25-2023 End: 07-25-2023 ambulatory Lou Glover Other [employer] Other Start: 07-25-2023 Office outpatient vi sit 25 minutes Lou Glover [facility] Start: 07-10-2023 End: 07-10-2023 ambulatory FELICIA Magalie GILLESPIEER Not Available Start: 07-02-2023 End: 07-02-2023 ambulatory FELICIA D ZAHLER Not Available Start: 06-25-2023 End: 06-25-2023 ambulatory FELICIA D ZAHLER Not Available Start: 06-18-2023 End: 06-18-2023 ambulatory FELICIA D ZAHLER Not Available Start: 04-07-2023 End: 04-07-2023 ambulatory Williams Shepherd Facility:[facility] Start: 04-07-2023 End: 04-07-2023 Departed Referred MD Jayme Perez Work Phone: [facility] [place] Start: 04-07-2023 End: 04-08-2023 ambulatory MD Jayme Perez Work Phone: [facility] Work Phone: Start: 03-26-2023 End: 03-26-2023 ambulatory Williams Shepherd Facility:[facility] Start: 03-26-2023 End: 03-26-2023 Patient encounter procedure MD Jayme Perez Work Phone: [facility] Work Phone: Start: 03-20-2023 End: 03-21-2023 ambulatory Williams SHEPHERD Facility:[facility] Start: 03-20-2023 End: 03-20-2023 Lab Drop off Williams SHEPHERD [facility] Start: 03-20-2023 End: 03-20-2023 Patient encounter procedure Williams Rubi SHEPHERD [facility] Start: 02-03-2023 End: 02-04-2023 [...] 05-21-2021 End: 05-21-2021 ambulatory Astrid Olivia Other [facility] [employer] Other Start: 05-21-2021 Office outpatient vi sit [...] Start: 05-19-2025 Glaucoma screening Diabetes: Retinopathy Screening [facility] Start: 07-12-2024 ambulatory Ambulatory Facility:[facility] Start: 05-22-2024 Medicare Annual Wellness (AWV) Medicare Annual Wellness (AWV) [facility] Start: 09-01-2023 End: 09-01-2023 Patient encounter procedure 09/01/2023 10:30 AM EST [facility] [address] [place] [address] Felicia Farmer DO [address] [place], [place] [id number] [facility] Start: 05-06-2023 Hemoglobin A1c measurement Diabetes: Hemoglobin A1C [facility] Start: 04-07-2023 Abdomen endoscopy OR Cysto/Retro/Stent/Stone/ Holmium Laser (Right) [facility] Start: 03-14-2023 Influenza vaccination Influenza Vaccine (#1) [facility] Start: 1951 Pneumococcal Vaccine: 65+ Years (1 - PCV) Pneumococcal Vaccine: 65+ Years (1 - PCV) [facility] Immunizations Immunization Date Immunization Notes Care Provider Yaya oswald NEGATED: Highlighted row has not occurred!08-13-2023 influenza virus vaccine, unspecified formulation Renato SANTACRUZ [facility] NEGATED: Highlighted row has not occurred!08-13-2023 SARS-CoV-2 mRNA (tozinameran 5y-11y) vaccine Renato SANTACRUZ [facility] NEGATED: Highlighted row has not occurred!09-21-2019 influenza virus vaccine, live, attenuated, for intranasal use [facility] NEGATED: Highlighted row has not occurred!08-20-2019 influenza virus vaccine, live, attenuated, for intranasal use [facility] Payers Date Payer Category Payer Self-pay [id number] 2022 Unknown [employer] [id number] 2022-Present [address] [address] [place] [address] [id number]. [id number] 2022 Medicare [id number] 2.16.840.1.760956.19 2002 Medicare MEDICARE MEDICAR E PART B [id number] 2002-Present [address] [address] [place] [address] Medicare [id number]. [id number] 1959 Medicare [id number] 2.16.840.1.204944.19 1959 Unknown [id number] 1946 Unknown [id number] 2.16.840.1.988741.3.579.2.59 3 1946 Unknown [id number] 2.16.840.1.891744.3.579.2.59 3 1946 Unknown [id number] 2.16.840.1.556385.3.579.2.59 3 1946 Unknown [id number] 2.16.840.1.882194.3.579.2.59 3 1946 Unknown [id number] 2.16.840.1.649164.3.579.2.59 3 1946 Unknown [id number] 2.16.840.1.213022.3.579.2.59 3 1946 Unknown [id number] 2.16.840.1.823112.3.579.2.59 3 1946 Unknown [id number] 2.16.840.1.704223.3.579.2.59 3 1946 Unknown [id number] 2.16.840.1.317094.3.579.2.59 3 1946 Unknown [id number] 2.16.840.1.904907.3.579.2.59 3 1946 Unknown [id number] 2.16.840.1.942301.3.579.2.59 3 1946 Unknown [id number] 2.16.840.1.134410.3.579.2.59 3 1946 Unknown [id number] 2.16.840.1.761170.3.579.2.59 3 1946 Unknown [id number] 2.16.840.1.651601.3.579.2.12 59 1946 Unknown [id number] 2.16.840.1.172842.3.579.2.12 59 1946 Unknown [id number] 2.16.840.1.582498.3.579.2.12 59 1946 Unknown [id number] 2.16.840.1.131604.3.579.2.12 59 1946 Unknown [id number] 2.16.840.1.921070.3.579.2.12 59 1946 Unknown [id number] 2.16.840.1.035644.3.579.2.12 59 1946 Unknown [id number] 2.16.840.1.377736.3.579.2.12 59 1946 Unknown [id number] 2.16.840.1.298577.3.579.2.72 7 1946 Unknown [id number] 2.16.840.1.490859.3.579.2.72 7 1946 Unknown [id number] 2.16.840.1.518628.3.579.2.72 7 1946 Unknown [id number] 2.16.840.1.818514.3.579.2.72 7 1946 Unknown [id number] 2.16.840.1.209120.3.579.2.72 7 1946 Unknown [id number] 2.16.840.1.522991.3.579.2.72 7 1946 Unknown [id number] 2.16.840.1.297027.3.579.2.72 7 Unknown [id number] 2.16.840.1.665067.3.579.2.53 1 Unknown [id number] 2.16.840.1.403123.3.579.2.53 1 Social History Date Type Detail Facility Sex Assigned At [facility] Other Start: 02-03-2023 End: 10-14-2023 Tobacco smoking status Ex-smoker (finding) [facility] Tobacco smoking status Never [facility] Start: 12-11-2022 End: 05-22-2023 Sex Assigned At Female [facility] [place] Start: 1945 Sex Assigned At Female [facility] End: 07-14-1986 History of tobacco use Current smoker [facility] End: 07-14-1986 History of tobacco use Cigarette Smoker [facility] Start: 08-07-2023 Tobacco use and exposure Smokeless tobacco non-user [facility] Start: 08-07-2023 End: 08-14-2023 Alcohol intake Ex-drinker (finding) [facility] Start: 12-11-2022 End: 05-22-2023 History of Social function [facility] Within the last year , have you been afraid of your partner or ex-partner? No [facility] Are you now , [...] got money to buy more. Never true [facility] Start: 01-24-2023 Education [facility] Start: 01-06-2023 Gender identity Identifies as female gender (finding) [facility] Functional Status Date Assessment Result Facility 10-14-2023 Functional Status N/A [facility] 08-13-2023 Functional Status N/A [facility] Clinical Notes 02-21-2022 to 10-14-2023 Jayme Perez [...] include: ?8 oz (237 mL) of milk, ecwcdyi-lkfktmvmbbrq-ygwda milk, and calcium-fortifiedfruit juice. Calcium-fortified means that [...] ?Spinach (cooked), rhubarb, beets, sweet potatoes, and Syrian chard. ?Peanuts. ?Potato chips, zambian fries, and baked potatoes with skin on. ?Nuts and nut products. ?Chocolate. If you regularly take a diuretic medicine, make sure to eat at least 1 or 2 servings of fruits or vegetables that are high in potassium each day. These include: ?Avocado. ?Banana. ?Wendell, prune, carrot, or tomato juice. ?Baked potato. [...] magnesium, fish oil, or vitamin B6. Take nnna-kyx-ouuisqs and prescription medicines only as told by [...] Casseroles. Pizza. Lasagna. Frozen meals. Potato chips. Turkmen fries. The items listed above may not [...] provider. Document Revised: 10/10/2022 Document Reviewed: 10/10/2022 [employer] Patient Education 2022 [employer] Follow Up Care 08/13/2023 10:19:44 With:CORA AGUIAR, Williams Venegas, URL Address: [address] [place], [place] [id number]- When: Unknown [facility] Hospital Discharge instructions Patient Education [...] including vitamins, herbs, eye drops, creams, and rpyj-unw-aosmpco medicines. Any problems you or family members [...] provider tells you to take them. ?Taking dqbm-dhx-hmypfso medicines, vitamins, herbs, and supplements. Eating and [...] provider. Document Revised: 11/06/2022 Document Reviewed: 03/04/2022 [employer] Patient Education 2022 [employer] Follow Up Care 08/12/2023 14:37:00 With:ANGELITO AGUIAR, Renato Arzola, URL Address: [facility] [address] , [place] [address]- [phone] When: Unknown Comments:sched ureteroscopyf/u w/ [facility] scheduled 10/14/23 [facility] [place] 08-07-2023 History of Present illness Narrative Patient [...] 0.55 - 1.02 mg/dL Final [facility] EGFR-AF [facility] 07/22/2023 >60 >=60 Final [facility] EGFR-NON AF [facility] 07/22/2023 55 (L) >=60 Final BUN CREATININE [...] cardiovascular disease. 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 documented in this encounter [facility] 07-25-2023 Evaluation note Encounter Date [...] care as directed rx of steroid and Addison, cool mist humidification. May use Tylenol as directed. Immediate eval for signs of respiratory distress, difficulty breathing poor PO intake, signs of dehydration, fever, or other concerning symptoms. Otherwise, follow up with PCP in 2-3 days. Patient verbalizes understanding and is agreeable to treatment plan. Patient sent home in stable condition. [facility] Other 08-11-2022 NotePROCEDURE: XR FOOT LT MIN 3 VIEWS COMPARISON: None. HISTORY: Pain in left foot FINDINGS: BONES:No acute fracture or dislocation. Mild enthesopathic spurring of the calcaneus. SOFT TISSUES:Negative. No visible soft tissue swelling. EFFUSION:None visible. OTHER: Negative. IMPRESSION: Mild enthesopathic spurring of the calcaneus Electronically authenticated by: BLANCA ZAVALA Date: 2022-02-21 [facility]ments Appointment Date:07/12/2024 10:45:00 AM Scheduled Provider:Williams SHEPHERD MD Location:[facility] Appointment Type:URO Office Visit [facility] Evaluation + Plan note Future Appointments Appointment Date:07/12/2024 10:45:00 AM Scheduled Provider:Williams SHEPHERD MD [facility] Appoint[facility] Type:URO Office Visit Diagnostic Tests Pending * Calculi Analysis [facility] Appointment Date:10/14/2023 09:15:00 AM Scheduled Provider:Williams SHEPHERD MD [facility] Appointment Type:URO Office Visit Appointment Date:07/12/2024 10:45:00 AM Scheduled Provider:Williams SHEPHERD MD [facility] Appointment Type:URO Office Visit [facility] evaluuqxgo noteNort [employer] Other evaluation noteNo assessment information available [facility] Work Phone: evaluation note* Diagnosis Chronic diastolic heart failure (CMS/HCC)- Primary Chronic diastolic heart failure 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 (CMS/HCC) Atrial fibrillation Type 2 diabetes mellitus with stage 3a chronic kidney disease, without long-term current use of insulin (HCC) (CMS/HCC) Stage 3a chronic kidney disease (HCC) ([facility]/HCC) Microalbuminuria Proteinuria Former smoker Personal history of tobacco use, presenting hazards to health 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, adult group home current use of anticoagulant Psoriatic arthropathy ([facility]/HCC) Psoriatic arthropathy Gastroesophageal reflux disease without esophagitis Esophageal reflux documented in this encounter [facility] [employer] Other History general Narrative - Reported* Type Description Date Medical History Arthritis Medical History diabetes mallitus Surgical History cataract surgery [facility] [employer] Other Hospital course Narrative No data available for this section [facility] [employer] Hospital Discharge instructions No data available for this section [facility] [employer] Progress note No data available for this section [facility] [employer] Summary Purpose Family History No Family History [...] and content) DATE CREATED AUTHOR 12/20/2022 [facility] DATE CREATED AUTHOR AUTHOR'S ORGANIZ ATION 06/09/2023 [facility] DATE CREATED AUTHOR AUTHOR'S ORGANIZ ATION 09/01/2023 [facility] EPIC DATE CREATED AUTHOR AUTHOR'S ORGANIZ ATION 10/15/2023 [facility] Patient Care team informatio n (unrecognized section and content) Team Status: Active Member Role Status Dates Jayme Perez MD Primary Care Provider Active Team Status: Inactive Member Role Status Dates Jayme Perez MD Primary Care Provider Active Williams Shepherd MD Attending Provider Active 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 Source 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 Relationship 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 [facility] [employer] [facility]. provides no warranty or guarantee of the accuracy or completeness of information in this document.
[2023-12-01 10:48] LABS: INR 2.72; Prothrombin Time 26.1 sec (9.0-11.6)
== END 2023-12-01 10:04 | disposition home or self-care (01) ==
LOC: LAB 10:04
PROVIDERS: PCP Family Medicine; Visit Provider Family Medicine
DX: I48.0 Paroxysmal atrial fibrillation (principal); Z79.01 Long term (current) use of anticoagulants; Z51.81 Encounter for therapeutic drug level monitoring
CPT/HCPCS: 36415; 85610

== ENCOUNTER 2023-12-29 10:16 | Outpatient (OUT) | payer MEDICARE, SELFPAY ==
[2023-12-29 11:21] LABS: Prothrombin Time 31.9 sec (9.0-11.6)
== END 2023-12-29 10:17 | disposition home or self-care (01) ==
LOC: LAB 10:18
PROVIDERS: PCP Family Medicine; Visit Provider Family Medicine
DX: I48.0 Paroxysmal atrial fibrillation (principal); Z79.01 Long term (current) use of anticoagulants; Z51.81 Encounter for therapeutic drug level monitoring
CPT/HCPCS: 36415; 85610

== ENCOUNTER 2023-12-29 10:24 | Outpatient (OUT) | payer MEDICARE, SELFPAY ==
[2023-12-29 11:15] LABS: Basophils Absolute Auto 0.1 10^3/uL (0.0-0.1); Basophils Percent Auto 0.7 % (0.2-2.0); Eosinophils Absolute Auto 0.4 10^3/uL (0.0-0.7); Eosinophils Percent Auto 5.3 % (0.9-7.0); Hematocrit 39.1 % (36.0-48.0); Hemoglobin 12.6 g/dL (12.0-16.0); Immature Granulocytes Abs Auto 0.04 10^3/uL (0.00-0.03); Immature Granulocytes Pct Auto 0.6 % (0.0-0.5); Lymphocytes Absolute Auto 1.8 10^3/uL (1.2-3.8); Lymphocytes Percent Auto 26.5 % (20.5-60.0); Mean Corpuscular HGB Conc 32.2 g/dL (29.9-35.2); Mean Corpuscular Hemoglobin 30.4 pg (26.7-34.0); Mean Corpuscular Volume 94.2 fL (81.0-99.0); Mean Platelet Volume 8.8 fL (9.5-13.5); Monocytes Absolute Auto 0.6 10^3/uL (0.3-0.8); Monocytes Percent Auto 9.4 % (1.7-12.0); Neutrophils Absolute Auto 3.9 10^3/uL (1.4-6.5); Neutrophils Percent Auto 57.5 % (43.0-75.0); Platelet Count 296 10^3/uL (150-450); Red Blood Count 4.15 10^6/uL (4.20-5.40); White Blood Count 6.8 10^3/uL (4.0-11.0)
[2023-12-29 11:17] LABS: Anion Gap 10.4; Aspartate Amino Transferase 14 U/L (15-37); BUN Creatinine Ratio 12.5; Bilirubin Total 0.4 mg/dL (0.2-1.0); Calcium 9.4 mg/dL (8.5-10.1); Carbon Dioxide 29.5 mmol/L (21.0-32.0); Chloride 104 mmol/L (98-107); Estimated GFR (African America >60 (>=60); Estimated GFR (Non-African Ame >60 (>=60); Glucose 127 mg/dL (74-106); Potassium 3.9 mmol/L (3.5-5.1); Sodium 140 mmol/L (136-145)
[2023-12-29 11:18] LABS: Alanine Aminotransferase 20 U/L (14-59); Albumin Level 3.6 g/dL (3.4-5.0); Alkaline Phosphatase 61 U/L (46-116); Globulin 3.5 g/dL; Total Protein 7.1 g/dL (6.4-8.2)
[2023-12-29 12:02] LABS: Erythrocyte Sedimentation Rate 60 mm/hr (<=30)
== END 2023-12-29 10:25 | disposition home or self-care (01) ==
LOC: LAB 10:26
PROVIDERS: PCP Family Medicine; Visit Provider Internal Medicine Rheumatology
DX: L40.59 Other psoriatic arthropathy (principal); Z79.899 Other long term (current) drug therapy; I48.0 Paroxysmal atrial fibrillation; Z79.01 Long term (current) use of anticoagulants; Z51.81 Encounter for therapeutic drug level monitoring
CPT/HCPCS: 36415; 80053; 85025; 85610; 85652

== ENCOUNTER 2024-01-12 10:09 | Outpatient (OUT) | payer MEDICARE, SELFPAY ==
--- OUTSIDE RECORDS SUMMARY | 2024-01-12 10:35 | XMS_ITS | CCD ---
Author Organization [facility] Care Team Providers Care Drupal Architect Name Role Phone Astrid Baker Unavailable CAYETANO, [...] Care Unavailable MONTEIRO, DR CRUM Consulting Unavailable MONTEIRO, DR CRUM Attending Unavailable HEMEYER ., DR MCKINNEY Referring Unavailable MONTEIRO, DR CRUM Admitting Unavailable HEMEYER ., DR MCKINNEY Primary Care Unavailable HEMEYER ., DR MCKINNEY Consulting Unavailable HEMEYER ., DR MCKINNEY Attending Unavailable HEMEYER ., DR MCKINNEY Admitting Unavailable MONTEIRO, DR CRUM Attending Unavailable CYAETANO, DR CRUM Admdiallo Unavailable WEST, DR BLANCA Haskins Consulting Unavailable HEMEYER ., DR MCKINNEY Primary Care Unavailable MONTEIRO, DR CRUM Consulting Unavailable MONTEIRO, DR CRUM Consulting Unavailable MONTEIRO, DR CRUM Attending Unavailable MONTEIRO, DR CRUM Admitting Unavailable HEMEYER ., DR MCKINNEY Primary Care Unavailable MONTEIRO, DR CRUM Consulting Unavailable MONTEIRO, DR CRUM [...] Care Provider MD Williams Shepherd Attending Provider [phone] Williams Shepherd Admitting Unavailable Williams Shepherd Attending Unavailable Jayme Perez Primary Care Unavailable Williams Shepherd Attending Unavailable Jayme Perez Primary Care Unavailable Williams Shepherd Admitting Unavailable Lou Glover Unavailable Jayme Perez MD Primary Care Provider [phone] Jayme Perez MD Unavailable Renato SANTACRUZ Attending Unavailable COOK, Williams P Attending Unavailable COOK, Williams P Attending Unavailable COOK, Williams P Admitting Unavailable COOK, Williams P Attending Unavailable Renato SANTACRUZ Attending Unavailable COOK, Williams P Attending Unavailable COOK, Williams P Attending Unavailable COOK, Williams P Attending Unavailable FELICIA FARMER Attending Unavailable JAYME PEREZ Attending Unavailable FELICIA FARMER Attending Unavailable HEMEYER, JAYME Hazel Attending Unavailable FELICIA FARMER Attending Unavailable CORETTAHLFELICIA CLEMONS Attending Unavailable CORETTAHLFELICIA CLEMONS Attending Unavailable FELICIA FARMER Attending Unavailable Allergies Allergy Classification Reported Allergen(s) Allergy Type Date of Onset Reaction(s) Facility (11 sources) Ciprofloxacin; Translations: [ciprofloxacin] Drug Allergy 02-19-20 anaphylaxis, Unknown (qualifier value) [facility] (1 source) sulfaSALAzine Drug Allergy rash Remot[facility] Other (1 source) Ciprofloxacin Drug Allergy 03-30-20 13 [facility] (2 sources) Ketorolac; Translations: [Toradol] Drug Allergy 03-30-20 13 [facility] (2 sources) metroNIDAZOLE; Translations: [MetroGel] Drug Allergy 03-30-20 13 [facility] (1 source) NSAIDs Drug allergy (disorder) 03-30-20 13 [facility] (2 sources) pioglitazone; Translations: [Actos] Drug Allergy 03-30-20 13 [facility] (1 source) Sulfonamides (Antibiotic) Drug allergy (disorder) 03-30-20 13 [facility] (10 sources) Ketorolac; Translations: [ketorolac] Drug Allergy 03-26-20 Unknown (qualifier value), Nausea (finding) [facility] Comment on above: Severe (10 sources) Latex; Translations: [latex] Drug allergy 01-07-20 Blister of skin AND/OR mucosa (finding) [facility] (8 sources) Non-steroidal anti-inflammatory agent; Translations: [NSAIDs] Drug allergy 02-19-20 22 Unknown (qualifier value) [facility] (11 sources) pioglitazone; Translations: [pioglitazone] Drug Allergy 01-07-20 23 Unknown (qualifier value) [facility] (5 sources) Sulfonamides (Antibiotic); Translations: [sulfa drugs] Drug allergy Unknown (qualifier value) [facility] (7 sources) metroNIDAZOLE; Translations: [metronidazole] Drug Allergy 02-19-20 22 Redness of Skin [facility] (2 sources) Sulfonamides (Antibiotic); Translations: [Sulfa (Sulfonamide Antibiotics)] Allergy to substance 03-26-20 Rash [facility] (2 sources) NSAIDS (Non-Steroidal Anti-Inflamma; Translations: [NSAIDS (Non-Steroidal Anti-Inflamma] Allergy to substance 03-26-20 Anaphylaxis [facility] (1 source) Ciprofloxacin Drug Allergy 03-26-20 23 [facility] (1 source) Ketorolac Drug Allergy 03-26-20 [facility] (1 source) pioglitazone Drug Allergy 03-26-20 [facility] (1 source) Non-steroidal anti-inflammatory agent Drug allergy rash [facility] Other (4 sources) Substance with sulfonamide structure and antibacterial mechanism of action (substance) Drug allergy 02-19-20 rash [facility] Other (3 sources) Ketorolac Allergy to substance 01-07-20 Nausea Only [facility] (3 sources) Hydrocodone Bit-Homatrop Mbr Propensity to adverse reactions 08-07-19 Dizziness [facility] (3 sources) Medical Adhesive Remover Drug Allergy 02-19-20 [facility] Medications Current Medications Medication Drug Class(es) [...] Refill(s) 0 Start Date: 08/13/23 Status: Ordered [id number] 200 actuat albuterol 0.09 mg/actuat metered dose [...] Date: 09/19/20 Status: Ordered Cyanocobalamin-Liver Extract (Vitamin Q08-Rlvjy) Tablet (1 source) Start: 03-26-2023 take 1 tablet by mouth once daily Cyanocobalamin-Liver Extract (Vitamin I98-Rkuuc) Tablet Active 1 TAB PO every day at noon March 25, 2023 11:00pm dextromethorphan hydrobromide 1.5 mg/ml / pyrilamine maleate 1.5 mg/ml oral solution (1 source) Uncompetitive W-hhnloy-I-aspar muñoz Receptor Antagonist, Sigma-1 Agonist Start: 07-25-2023 take 10 mL by mouth every eight hours Grover DM 7.5-7.5 MG/5ML 10 mL Orally every 8 hours for 5 days Jul, Active esomeprazole 20 mg oral tablet (8 sources) Proton Pump Inhibitor Start: 08-17-2019 Nexium 20 mg, Oral, As Directed, Refills(s) 0 Start Date: 08/17/19 Status: Ordered Start: 08-17-2019 Nexium Oral, D aily, Refills(s) 0 Start Date: 08/17/19 Status: Ordered take 1 capsule by [facility] once daily esomeprazole (NexIUM) 20 MG [...] Start: 08-12-2023 take 1 capsule by mo [facility] every twenty-four hours in the morning [...] 12-12-2022 12-12-2022 Chronic Other aftercare (1 source) 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; Translations: [CLINICAL ACADEMIC ALLERGIST CURRNT USE ANTICOAGULANTS] Onset: 12-11-2022 Episodic Other aftercare (5 sources) Encounter for therapeutic drug level monitoring; Translations: [ENC THERAPEUTC DRUG LEVL MONITORING] Onset: 10-18-2022 Episodic Other aftercare (1 source) Other detention (current) drug therapy; Translations: [OTH [facility] CURRENT DRUG THERAPY] Onset: 10-31-2022 Episodic Other aftercare (7 sources) Long-term current use of anticoagulant; Translations: [longterm (current) use of anticoagulants] Onset: 07-21-2023 Episodic [...] 12-12-2022 12-12-2022 Episodic Other aftercare (1 source) 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 ? Peanuts. ? Potato chips, palauan fries, and baked potatoes with skin on. ? Nuts and nut products. ? Chocolate. ? If you regularly take a diuretic medicine, make sure to eat at least 1 or 2 servings of fruits or vegetables that are high in potassium each day. These include: ? Avocado. ? Banana. ? [place], prune, carrot, or tomato juice. ? Baked [...] fish oil, or vitamin B6. ? Take ddsx-cbw-snkohdp and prescription medicines only as told by your health care provider. These include supplements. What foods sh (more content not included)... Normal [facility] Urology Office/Clinic Noteon 10-14-2023 Urology Office/Clinic Note Chief Complaint Pt is here for 3 month w/ met w/u & [facility] HPI Staff 6 month follow up w/[facility] Pt canceled Cysto/R retro/possible: ureteroscopy, laser, basket, stent placement 04/07/23 due to passing stones Pt was then seen at [facility] on 08/12/23 due to abdominal pain, [...] with voice recognition artificial intelligence software, specifically [employer], Lettuce and or Gecko. Substitutions may have occurred due to the inherent limitations of voice recognition and artificial intelligence software. 1. Ureteral stone with hydronephrosis (N13.2: Hydronephrosis with renal and ureteral calculous obstruction) [facility] ER visit 08/12/23 due to R [...] bilateral nephrolithiasis. -See #1 3. Anticoagulated (Z79.01: longterm (current) use of anticoagulants) Warfarin for A-fib. [...] Information CORA AGUIAR, Williams P, URL [address] [place] [id number] Additional Instructions: 06/2024 with [facility] Patient Education Dietary Guidelines to Help Prevent Kidney Stones I, Charisse Rutherford, personally scribed for Dr. Shepherd on 10/14/2023 09:33:56. Electronically signed by (more content not included)... [facility] Comment on above: Result Comment: Elec tronically Signed By: Williams SHEPHERD MD\.br\Date and Time Signed: 10/14/23 09:38 EDT\.br\Electronically Co-Signed By: Charisse Rutherford\.br\Date and Time Co-Signed: 10/14/23 09:34 EDT RAD - MISCon 10-10-2023 RAD - MISC [id number] .00TIFF [facility] Lab Reportson 08-27-2023 Lab Reports [id number] .00TIFF [facility] Lab Reportson 08-25-2023 Lab Reports [id number]#1 .00TIFF [facility] Lab Reports [id number] .00TIFF [facility] Lab Reportson 08-22-2023 Lab Reports [id number] .00TIFF [facility] Lab Reportson 08-21-2023 Lab Reports [id number] .00TIFF [facility] Lab Reports [id number] .00TIFF [facility] ALL BUNon 08-20-2023 Urea nitrogen [Mass/Vol] 12.0 mg/dL 7.0 - 18.0 mg/dL [facility] ALL CARBON DIOXIDEon 024 CO2 [Moles/Vol] 30.1 mmol/L 21.0 - 32.0 mmol/L [facility] ALL CHLORIDEon 08-20-2023 Chloride [Moles/Vol] 104 mmol/L 98 - 107 mmol/L [facility] ALL PHOSPHOROUSon 08-20-2023 Phosphate [Mass/Vol] 4.1 mg/dL 2.6 - 4.7 mg/dL [facility] ALL SODIUMon 08-20-2023 Sodium [Moles/Vol] 141 mmol/L 136 - 145 mmol/L [facility] ALL URIC ACIDon 08-20-2023 Urate [Mass/Vol] 4.4 mg/dL 2.6 - 6.0 mg/dL [facility] CALCIUMon 08-20-2023 Calcium [Mass/Vol] 9.1 mg/dL 8.5 - 10.1 mg/dL [facility] No Panel Informationon 08-20 [facility] CREATININEon 08-20-2023 Creatinine [Mass/Vol] 0.86 mg/dL 0.55 - 1.02 mg/dL [facility] GFR/1.73 sq M.predicted CKD-EPI (S/P/Bld) [Vol rate/Area] >60 60 - PINF [facility] EGFR-NON AF PRYDEINIG >60 60 - PINF [facility] Consent for Procedure/Surger yon 08-15-2023 Consent for Procedure/Surgery [id number] .00TIFF Normal [facility] ED Note-Physicianon 08-15-19 ED Note-Physician [id number]#1. 00TIFF Normal [facility] Lab Reportson 08-15-2023 Lab Reports [id number]#1. 00TIFF Normal [facility] Lab Reports [id number]#1 .00TIFF Normal [facility] Lab Reports [id number] .00TIFF Normal [facility] Operative Reporton Operative Report [id number]#1 .00TIFF Normal [facility] RAD - CT Reporton 08-15-2023 RAD - CT Report [id number]#1. 00TIFF Normal [facility] Ambulatory Visit Summaryon 0 08-13-2023 Ambulatory Visit Summary WILDA SEN :1945 Visit Date:08/13/2023 Ambulatory Visit Instructions Your Diagnosis Ureteral stone with hydronephrosis Kidney stones Flank pain Anticoagulated Your Care Team Attending Physician - ANGELITO AGUIAR, Renato Arzola Primary Care Physician - CHRIS AGIUAR, JAYME Hazel This Is Your Medications List [...] AGUIAR, Williams Venegas Where: [facility] Ju Normal [address] [place] [address]- \.br\ You Need to Schedule the Following Appointments\.br \ Follow Up with ANGELITO AGUIAR, Renato Arzola, URL When: \.br\ Comments:\.br\ sched ureteroscopy\.br \ f/u w/ [facility] scheduled 10/14/23\.br\ Where:\.br\ [facility] [address]br\ [place] [address]-\.br\ [phone]\.br\ Medications\.br\ What How Much When Instructions\.br \ [...] murmur\.br\ History of uterine cancer\.br\ Hx of detention use of blood thinners\.br\ Kidney stones\.br\ Nocturia\.br\ [...] including vitamins, herbs, eye drops, creams, and rnvd-otm-wwbxtdf medicines.\.br\ ? \.br\ Any problems you or [...] you to take them.\.br\ ? \.br\ Taking iahd-qhr-fpneiuf medicines, vitamins, herbs, and supplements.\.br \ Eating [...] You may also have tests, such [facility] Patient Educationon 08-13-19 Patient Education [...] including vitamins, herbs, eye drops, creams, and srmy-nhw-tulamun medicines. ? Any problems you or family [...] tells you to take them. ? Taking coxt-kwt-iulmyqp medicines, vitamins, herbs, and supplements. Eating and [...] pieces (more content not included)... Normal [facility] Urology Office/Clinic Noteon 08-13-2023 Urology Office/Clinic Note Chief Complaint Patient is here for follow up to [facility] ER HPI Staff Patient is here for f/u to [facility] ER on 08/12/23 due to distal [...] Hydronephrosis with renal and ureteral calculous obstruction) [facility] ER visit 08/12/23 due to R [...] abdominal pain) See #1 4. 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 States she did not take this last night. Advised pt not to take her dose today either. Follow-up With When Contact Information ANGELITO AGUIARRenato, URL [facility] [address] [place] [address]- [phone] Additional Instructions: sched ureteroscopy f/u w/ [facility] scheduled 10/14/23 Patient Education Laser Therapy for Kidney Stones Channing, Amy Gallagher, personally scribed for Dr. Santacruz on 08/13/2023 11:35:03. . Documentation recorded by the scribe, Amy Gallagher, accurately reflects the services(s) I performed and decisions made by me. Authenticated by Dr. Santacruz on 08/13/2023 11:37:02. Problem List/Past Medical History Ongoi (more content not included)... Normal [facility] Comment on above: Result Comment: Elec tronically Signed By: Renato SANTACRUZ MD\.br\Date and Time Signed: 08/13/23 11:37 EST\.br\Electronically Co-Signed By: Amy Gallagher\.br\Date and Time Co-Signed: 08/13/23 11:35 EST COVID/FLU/RSV RT-PCRon 07-25 SARS-CoV-2 (COVID-19) RNA TREASURE+probe Ql (Unsp spec) Negative [facility] [employer] Other COVID/FLU/RSV RT-PCR Negative [facility] [employer] Other COVID/FLU/RSV RT-PCR Positive [facility] [employer] Other Calculus Analysison 03-27-20 23 Calcium oxalate dihydrate Infrared spectroscopy (Stone) [Mass fraction] 100 % Invalid Interpretation Code [facility] Comment on above: Performed By: #### 1 [id number] ####[facility] [address] [place] [address] Color (Stone) Roper Invalid Interpretation Code [facility] Comment on above: Performed By: #### 1 [id number] ####[facility] [address] [place] [address] Composition Comment Invalid Interpretation Code [facility] Comment on above: Result Comment: Perc entage (Represents the % composition) Performed By: #### 1 [id number] ####[facility] [address] [place] [address] Disclaimer: Comment Invalid Interpretation Code [facility] Comment on above: Result Comment: This test was developed and its performance characteristics determined by [facility]. It has not been cleared or approved by the Food and Drug Administration. Performed at: [facility] [address] [id number] PhD Silvestre Esquivel Performed By: #### 1 [id number] ####[facility] [address] [place] [address] Laboratory comment Noam (Report) Comment Invalid Interpretation Code [facility] Comment on above: Result Comment: Coco goode questions regarding Calculi Analysis contact [facility] at: [phone]. Performed By: #### 1 [id number] ####[address] [address] Please Note: Comment Invalid Interpretation Code [facility] Comment on above: Result Comment: Calc javier report will follow via computer, mail or integrated circuit fabricator delivery. Performed By: #### 1 [id number] ####[address] [place] [address] Size (Stone) [Entitic vol] 6x4 Invalid Interpretation Code [facility] Comment on above: Result Comment: Sing le piece received. Performed By: #### 1 [id number] ####[address] [place] [address] Specimen source subject Nom Comment Invalid Interpretation Code [facility] Comment on above: Result Comment: Not provided Performed By: #### 1 [id number] ####[facility] [address] [place] [address] Stone Photo Comment Invalid Interpretation Code [facility] Comment on above: Result Comment: Phot ograph will follow under a separate cover Performed By: #### 1 [id number] ####[facility] [address] [place] [address] Weight (Stone) 49 mg Invalid Interpretation Code [facility] Comment on above: Performed By: #### 1 [id number] ####[facility] [address] [place] [address] Lab Reportson 03-27-2023 Lab Reports [id number]. [id number]:[id number] Normal [facility] Activated partial thrombopla stin time (aPTT) in platelet poor plasma by coagulation aOrdered By: Williams Shepherd on 03-26-2023 aPTT Coag (PPP) [Time] 35.9 s 25.1-36.5 [facility] Comment on above: A hematocrit value g reater than 55% may lead to inaccurate results in coagulation testing. Patients having hematocrit values >55% require a special collection tube for coagulation studies. Please contact the laboratory at [phone] for redraw instructions. Basic Metabolic Panelon 03-14 Anion gap [Moles/Vol] 13.0 mmol/L Normal 6.0-15.0 [facility] Comment on above: Performed By: #### P T, BMP, CBC, PTT #### [facility] [address] [place] [address] Calcium [Mass/Vol] 10.0 mg/dL Normal 8.6-10.3 [facility] Comment on above: Result Comment: PERF ORMED BY: [place] [address] PATHOLOGIST PRICE CHECKER BERNIE GRAYSON M.D. Performed By: #### P T, BMP, CBC, PTT #### [facility] [address] Chloride [Moles/Vol] 104 mmol/L Normal 98-107 [facility] Comment on above: Performed By: #### P T, BMP, CBC, PTT #### [facility] [address] [place] [id number] [place] CO2 [Moles/Vol] 30.0 mmol/L Normal 21.0-31.0 [facility] Comment on above: Performed By: #### P T, BMP, CBC, PTT #### [facility] [address] [place] [address] [place] Creatinine [Mass/Vol] 0.85 mg/dL Normal 0.60-1.20 [facility] Comment on above: Performed By: #### P T, BMP, CBC, PTT #### [facility] [address] GFR/1.73 sq M.predicted MDRD (S/P/Bld) [Vol rate/Area] mL/min/{1.73_m2} Normal [facility] Comment on above: Performed By: #### P T, BMP, CBC, PTT #### [facility] [address] Glucose [Mass/Vol] 111 mg/dL High 70-100 [facility] Comment on above: Result Comment: [place] Glucose Reference Range is dependent on time and content of last meal. Glucose of more than 200 mg/dL in a nonstressed, ambulatory subject supports the diagnosis of Diabetes Mellitus. ADA recommended reference range Performed By: #### P T, BMP, CBC, PTT #### [facility] [address] Potassium [Moles/Vol] 5.0 mmol/L Normal 3.5-5.1 [facility] Comment on above: Performed By: #### P T, BMP, CBC, PTT #### [address] Sodium [Moles/Vol] 142 mmol/L Normal 136-145 [facility] Comment on above: Performed By: #### P T, BMP, CBC, PTT #### [facility] [address] [place] [address] Urea nitrogen [Mass/Vol] 12 mg/dL Normal 7-25 [facility] Comment on above: Performed By: #### P T, BMP, CBC, PTT #### [facility] [address] Basophils Auto (Bld) [#/Vol] Ordered By: Williams Shepherd on 03-26-2023 Basophils (Bld) [#/Vol] 0.0 10*3/uL 0.0-0.2 [facility] Basophils/100 WBC Auto (Bld) Ordered By: Williams Shepherd on 03-26-2023 Basophils/100 WBC (Bld) 0.8 % . [facility] Calcium [Mass/volume] in Ser um or PlasmaOrdered By: Williams Shepherd on 03-26-2023 Calcium [Mass/Vol] 10.0 mg/dL 8.6-10.3 [facility] Carbon dioxide, total [Moles /volume] in Serum or PlasmaOrdered By: Williams Shepherd on 03-26-2023 CO2 [Moles/Vol] 30.0 mmol/L 21.0-31.0 [facility] Chloride [Moles/volume] in S fartun or PlasmaOrdered By: Williams Shepherd on 03-26-2023 Chloride [Moles/Vol] 104 mmol/L 98-107 [facility] Complete Blood Count Auto Di ffon 03-26-2023 Basophils (Bld) [#/Vol] 0.0 10*3/uL Normal 0.0-0.2 [facility] Comment on above: Result Comment: PERF ORMED BY: [place] [address] PATHOLOGIST PRICE CHECKER BERNIE GRAYSON M.D. Performed By: #### P T, BMP, CBC, PTT #### [facility] [address] [place] [address] Basophils/100 WBC (Bld) 0.8 % Normal . [facility] Comment on above: Performed By: #### P T, BMP, CBC, PTT #### [facility] [address] [place] [address] [place] Eosinophils (Bld) [#/Vol] 0.3 10*3/uL Normal 0.0-0.45 [facility] Comment on above: Performed By: #### P T, BMP, CBC, PTT #### [address] Eosinophils/100 WBC (Bld) 4.3 % Normal . [facility] Comment on above: Performed By: #### P T, BMP, CBC, PTT #### [facility] [address] [place] [address] Erythrocyte distribution width (RBC) [Ratio] 14.8 % Normal 11.9-15.3 [facility] Comment on above: Performed By: #### P T, BMP, CBC, PTT #### [address] Hematocrit (Bld) [Volume fraction] 40.3 % Normal 34.0-46.4 [facility] Comment on above: Performed By: #### P T, BMP, CBC, PTT #### [address] Hemoglobin (Bld) [Mass/Vol] 13.3 g/dL Normal 11.8-15.4 [facility] Comment on above: Performed By: #### P T, BMP, CBC, PTT #### [address] Lymphocytes (Bld) [#/Vol] 2.2 10*3/uL Normal 1.00-4.8 [facility] Comment on above: Performed By: #### P T, BMP, CBC, PTT #### [address] Lymphocytes/100 WBC (Bld) 36.9 % Normal . [facility] Comment on above: Performed By: #### P T, BMP, CBC, PTT #### [address] MCH (RBC) [Entitic mass] 31.1 pg Normal 24.7-34.3 [facility] Comment on above: Performed By: #### P T, BMP, CBC, PTT #### [address] MCV (RBC) [Entitic vol] 94.4 fL Normal 80-100 [facility] Comment on above: Performed By: #### P T, BMP, CBC, PTT #### [address] Mean Corpuscular HGB Conc 32.9 g/dL Normal 32.0-35.0 [facility] Comment on above: Performed By: #### P T, BMP, CBC, PTT #### [facility] [address] Monocytes (Bld) [#/Vol] 0.5 10*3/uL Normal 0.0-0.8 [facility] Comment on above: Performed By: #### P T, BMP, CBC, PTT #### [address] Monocytes/100 WBC (Bld) 7.8 % Normal . [facility] Comment on above: Performed By: #### P T, BMP, CBC, PTT #### [address] Neutrophils (Bld) [#/Vol] 3.0 10*3/uL Normal 1.8-7.7 [facility] Comment on above: Performed By: #### P T, BMP, CBC, PTT #### [address] Neutrophils/100 WBC (Bld) 50.2 % Normal . [facility] Comment on above: Performed By: #### P T, BMP, CBC, PTT #### [facility] [address] [place] [address] NRBC% 0.3 /100{WBC} Normal 0-0.5 [facility] Comment on above: Performed By: #### P T, BMP, CBC, PTT #### [facility] [address] [place] [address] Platelet mean volume (Bld) [Entitic vol] 7.1 fL Normal 6.3-10.7 [facility] Comment on above: Performed By: #### P T, BMP, CBC, PTT #### [facility] [address] [place] [address] [place] Platelets (Bld) [#/Vol] 363 10*3/uL Normal 150-450 [facility] Comment on above: Performed By: #### P T, BMP, CBC, PTT #### [facility] [address] [place] [address] [place] RBC (Bld) [#/Vol] 4.27 10*6/uL Normal 3.60-5.00 [facility] Comment on above: Performed By: #### P T, BMP, CBC, PTT #### [facility] [address] WBC (Bld) [#/Vol] 5.9 10*3/uL Normal 3.8-11.6 [facility] Comment on above: Performed By: #### P T, BMP, CBC, PTT #### [facility] [address] [place] [address] Creatinine [Mass/volume] in Serum or PlasmaOrdered By: Williams Shepherd on 03-26-2023 Creatinine [Mass/Vol] 0.85 mg/dL 0.60-1.20 [facility] ECG 12 lead ECGon 03-26-2023 ECG 12 lead ECG [facility] [place] [address] [place] [address] Electrocardiograph Report Signed Patient: Wilad Sen MR#: [id number] 8 : 1945 Acct:[id number] Age/Sex: 77 / F ADM Date: 03/26/23 Loc: Room: Type: [facility] Attending Dr: Williams Shepherd MD [...] By Maru Whitehead DO 03/26 190 Normal [facility] Eosinophils Auto (Bld) [#/Vo l]Ordered By: Williams Shepherd on 03-26-2023 Eosinophils (Bld) [#/Vol] 0.3 10*3/uL 0.0-0.45 [facility] Eosinophils/100 WBC Auto (Bl d)Ordered By: Williams Shepherd on 03-26-2023 Eosinophils/100 WBC (Bld) 4.3 % . [facility] Erythrocyte distribution wid th Auto (RBC) [Ratio]Ordered By: Williams Shepherd on 03-26-2023 Erythrocyte distribution width (RBC) [Ratio] 14.8 % 11.9-15.3 [facility] Glucose [Mass/volume] in Ser um or PlasmaOrdered By: Williams Shepherd on 03-26-2023 Glucose [Mass/Vol] 111 mg/dL 70-100 [facility] Comment on above: ADA recommended refe rence rangeRandom Glucose Reference Range is dependent on time and content of last meal. Glucose of more than 200 mg/dL in a nonstressed, ambulatory subject supports the diagnosis of Diabetes Mellitus. Hematocrit Auto (Bld) [Volum e fraction]Ordered By: Williams Shepherd on 03-26-2023 Hematocrit (Bld) [Volume fraction] 40.3 % 34.0-46.4 [facility] Hemoglobin [Mass/volume] in BloodOrdered By: Williams Shepherd on 03-26-2023 Hemoglobin (Bld) [Mass/Vol] 13.3 g/dL 11.8-15.4 [facility] INR in Platelet poor plasma by Coagulation assayOrdered By: Williams Shepherd on 03-26-2023 INR Coag (PPP) [Relative time] 2.3 {INR} [facility] Comment on above: INR Therapeutic Rang [...] RBC Auto (Bld) [#/Vol] 5.9 10*3/uL 3.8-11.6 [facility] Lymphocytes Auto (Bld) [#/Vo l]Ordered By: Williams Shepherd on 03-26-2023 Lymphocytes (Bld) [#/Vol] 2.2 10*3/uL 1.00-4.8 [facility] Lymphocytes/100 WBC Auto (Bl d)Ordered By: Williams Shepherd on 03-26-2023 Lymphocytes/100 WBC (Bld) 36.9 % . [facility] MCH Auto (RBC) [Entitic mass ]Ordered By: Williams Shepherd on 03-26-2023 MCH (RBC) [Entitic mass] 31.1 pg 24.7-34.3 [facility] MCHC Auto (RBC) [Mass/Vol]Or dered By: Williams Shepherd on 03-26-2023 MCHC (RBC) [Mass/Vol] 32.9 g/dL 32.0-35.0 [facility] MCV Auto (RBC) [Entitic vol] Ordered By: Williams Shepherd on 03-26-2023 MCV (RBC) [Entitic vol] 94.4 fL 80-100 [facility] Monocytes Auto (Bld) [#/Vol] Ordered By: Williams Shepherd on 03-26-2023 Monocytes (Bld) [#/Vol] 0.5 10*3/uL 0.0-0.8 [facility] Monocytes/100 WBC Auto (Bld) Ordered By: Williams Shepherd on 03-26-2023 Monocytes/100 WBC (Bld) 7.8 % . [facility] Neutrophils Auto (Bld) [#/Vo l]Ordered By: Williams Shepherd on 03-26-2023 Neutrophils (Bld) [#/Vol] 3.0 10*3/uL 1.8-7.7 [facility] Neutrophils/100 WBC Auto (Bl d)Ordered By: Williams Shepherd on 03-26-2023 Neutrophils/100 WBC (Bld) 50.2 % . [facility] No Panel InformationOrdered By: Williams Shepherd on 03-26-2023 Estimated GFR (CKD-EPI) > 60.0 mL/Min [facility] Creatinine Clearance (Chem N/A [facility] Nucleated erythrocytes [Pres ence] in Blood by Automated countOrdered By: Williams Shepherd on 03-26-2023 Nucleated RBC Auto Ql (Bld) 0.3 /100{WBC} 0-0.5 [facility] Partial Thromboplastin Timeo n 03-26-2023 aPTT Coag (Bld) [Time] 35.9 s Normal 25.1-36.5 [facility] Comment on above: Result Comment: A he matocrit value greater than 55% may lead to inaccurate results in coagulation testing. Patients having hematocrit values >55% require a special collection tube for coagulation studies. Please contact the laboratory at [phone] for redraw instructions. PERFORMED BY: [place] [address] PATHOLOGIST PRICE CHECKER BERNIE GRAYSON M.D. Performed By: #### P T, BMP, CBC, PTT #### [address] Platelet mean volume Auto (B ld) [Entitic vol]Ordered By: Williams Shepherd on 03-26-2023 Platelet mean volume (Bld) [Entitic vol] 7.1 fL 6.3-10.7 [facility] Platelets Auto (Bld) [#/Vol] Ordered By: Williams Shepherd on 03-26-2023 Platelets (Bld) [#/Vol] 363 10*3/uL 150-450 [facility] Potassium [Moles/volume] in Serum or PlasmaOrdered By: Williams Shepherd on 03-26-2023 Potassium [Moles/Vol] 5.0 mmol/L 3.5-5.1 [facility] Prothrombin Time INRon 03-26 INR Coag (PPP) [Relative time] 2.3 {INR} Normal [facility] Comment on above: Result Comment: INR [...] #### P T, BMP, CBC, PTT #### [facility] [address] [place] [address] [place] PT Coag (PPP) [Time] 26.6 s High 9.0-12.9 [facility] Comment on above: Result Comment: A he matocrit value greater than 55% may lead to inaccurate results in coagulation testing. Patients having hematocrit values >55% require a special collection tube for coagulation studies. Please contact the laboratory at [phone] for redraw instructions. Performed By: #### P T, BMP, CBC, PTT #### [facility] [address] [place] [address] [facility] Prothrombin time (PT)Ordered By: Williams Shepherd on 03-26-2023 PT Coag (PPP) [Time] 26.6 s 9.0-12.9 [facility] Comment on above: A hematocrit value g reater than 55% may lead to inaccurate results in coagulation testing. Patients having hematocrit values >55% require a special collection tube for coagulation studies. Please contact the laboratory at [phone] for redraw instructions. RBC Auto (Bld) [#/Vol]Ordere d By: Williams Shepherd on 03-26-2023 RBC (Bld) [#/Vol] 4.27 10*6/uL 3.60-5.00 [facility] Serum or plasma anion gap de terminationOrdered By: Williams Shepherd on 03-26-2023 Anion gap [Moles/Vol] 13.0 mmol/L 6.0-15.0 [facility] Sodium [Moles/volume] in Ser um or PlasmaOrdered By: Williams Shepherd on 03-26-2023 Sodium [Moles/Vol] 142 mmol/L 136-145 [facility] Urea nitrogen [Mass/volume] in Serum or PlasmaOrdered By: Williams Shepherd on 03-26-2023 Urea nitrogen [Mass/Vol] 12 mg/dL 7-25 [facility] WBC Auto (Bld) [#/Vol]Ordere d By: Williams Shepherd on 03-26-2023 WBC (Bld) [#/Vol] 5.9 10*3/uL 3.8-11.6 [facility] Consultation Noteon 03-17-20 23 Consultation Note [id number] .00CD:127 [facility] Lab Reportson 02-12-2023 Lab Reports [id number] .00CD:127 [facility] RAD - MISCon 02-12-2023 RAD - MISC [id number] .00CD:127 [facility] RAD - CT Reporton 02-05-2023 RAD - CT Report [id number] .00CD:127 [facility] RAD - MISCon 02-05-2023 RAD - MISC [id number] .00CD:127 [facility] Ambulatory Visit Summaryon 0 02-03-2023 Ambulatory Visit Summary BOBBI SENRA Hazel :1945 Visit Date:02/03/2023 Ambulatory Visit Instructions Your Diagnosis Kidney stones Tests Performed XR Abdomen 1 View -- Results Pending -- Please visit your patient portal for your results or contact your primary care physician. Your Care Team Attending Physician - CORA AGUIAR, Williams Vneegas Primary Care Physician - CHRIS AGUIAR, JAYME [...] AGUIAR, Williams Venegas Where: [facility] Patient Educationon 02-04-20 Patient Education Urology [...] these instructions at home: Medicines ? Take [id number] and prescription medicines only as told by [...] follow (more content not included)... Normal [facility] Urology Office/Clinic Noteon 02-03-2023 Urology Office/Clinic Note Chief Complaint 16 month follow up w/ CT scan [facility] Staff Pt is here today for 16 month follow up w/ CT scan done @[facility] on 01/15/23. CT scan shows [...] SHEPHERD MD, URL [address] [place] [id number] Additional Instructions: Patient Education Kidney Stones I, Fanny Bowen, personally scribed for Dr. Shepherd on 02/03/2023 12:04:03. . Documentation recorded by the scribe, Fanny Bowen, accurately reflects the services(s) I performed and decisions made by me. Authenticated by Dr. Shepherd on 02/03/2023 12:37:35. Portions of this record may have been created with voice recognition artificial intelligence software, specifically [employer], [employer] and or [employer]. Substitutions may have occurred due to the inherent limitations of voice recognition and artificial intelligence software. Problem List/Past Medical History Ongoing Abdominal pain Anticoagulated Anxiety BMI 27.0-27.9,adult Depression Diabetes Former smoker Frequent urination Heart murmur History of uterine cancer Hx of detention use of blood thin (more content not included)... Normal [facility] Comment on above: Result Comment: Elec tronically Signed By: Williams SHEPHERD MD\.br\Date and Time Signed: 02/03/23 12:39 EDT\.br\Electronically Co-Signed By: Fanny Bowen\.br\Date and Time Co-Signed: 02/03/23 12:04 EDT PROTIMEon 12-02-2022 INR Coag (PPP) [Relative time] 3.62 {INR} Normal [facility] Comment on above: Performed By: #### P T #### [facility] [address] [place] [address] Dr. Tg Fierro INR GUIDELINES SEE BELOW Normal [facility] Comment on above: Result Comment: LAURENCE RED INR: 2.0 - 3.0 CONDITIONS NOT LISTED BELOW 2.5 - 3.5 FOR PROSTHETIC HEART VALVE REPLACEMENT 2.5 - 3.5 RECURRENT THROMBOSIS Performed By: #### P T #### [facility] [address] [place] [address] Dr. Tg Fierro PT Coag (PPP) [Time] 35.7 s Critically high 9.0-11.6 [facility] Comment on above: Performed By: #### P T #### [facility] [address] [place] [address] Dr. Tg Fierro PROTIMEon 11-11-2022 INR Coag (PPP) [Relative time] 1.90 {INR} Normal [facility] Comment on above: Performed By: #### P T #### [facility] [address] [place] [address] Dr. Tg Fierro INR GUIDELINES SEE BELOW Normal [facility] Comment on above: Result Comment: LAURENCE RED INR: 2.0 - 3.0 CONDITIONS NOT LISTED BELOW 2.5 - 3.5 FOR PROSTHETIC HEART VALVE REPLACEMENT 2.5 - 3.5 RECURRENT THROMBOSIS Performed By: #### P T #### [facility] [address] [place] [address] Dr. Tg Fierro PT Coag (PPP) [Time] 19.4 s Critically high 9.0-11.6 [facility] Comment on above: Performed By: #### P T #### [facility] [address] [place] [address] Dr. Tg Fierro CBC AUTO DIFFon 10-25-2022 BASO # 0.0 103/ul Normal 0.0-0.1 [facility] Comment on above: Performed By: #### P T #### [facility] [address] [place] [address] Dr. Tg Fierro Basophils/100 WBC (Bld) 0.5 % Normal 0.2-2.0 [facility] Comment on above: Performed By: #### P T #### [facility] [address] [place] [address] Dr. Tg Fierro EO # 0.2 103/ul Normal 0.0-0.7 [facility] Comment on above: Performed By: #### P T #### [facility] [address] [place] [address] Dr. Tg Fierro Eosinophils/100 WBC (Bld) 2.7 % Normal 0.9-7.0 [facility] Comment on above: Performed By: #### P T #### [facility] [address] [place] [address] Dr. Tg Fierro Erythrocyte distribution width (RBC) [Ratio] 13.4 % Normal 11.0-15.0 [facility] Comment on above: Performed By: #### P T #### [facility] [address] [place] [address] Dr. Tg Fierro Hematocrit (Bld) [Volume fraction] 40.7 % Normal 36.0-48.0 [facility] Comment on above: Performed By: #### P T #### [facility] [address] [place] [address] Dr. Tg Fierro Hemoglobin (Bld) [Mass/Vol] 13.2 g/dL Normal 12.0-16.0 [facility] Comment on above: Performed By: #### P T #### [facility] [address] [place] [address] Dr. Tg Fierro IG # 0.03 10e3/ul Normal 0.00-0.03 [facility] Comment on above: Performed By: #### P T #### [facility] [address] [place] [address] Dr. Tg Fierro IG % 0.5 % Normal 0.0-0.5 [facility] Comment on above: Performed By: #### P T #### [facility] [address] [place] [address] Dr. Tg Fierro LYMPH # 2.1 103/ul Normal 1.2-3.8 [facility] Comment on above: Performed By: #### P T #### [facility] [address] [place] [address] Dr. Tg Fierro Lymphocytes/100 WBC (Bld) 34.9 % Normal 20.5-60.0 [facility] Comment on above: Performed By: #### P T #### [facility] [address] [place] [address] Dr. Tg Fierro MANUAL DIFF REQ NO Normal [facility] Comment on above: Performed By: #### P T #### [facility] [address] [place] [address] Dr. Tg Fierro MCH (RBC) [Entitic mass] 30.5 pg Normal 26.7-34.0 [facility] Comment on above: Performed By: #### P T #### [facility] [address] [place] [address] Dr. Tg Fierro MCHC (RBC) [Mass/Vol] 32.4 g/dL Normal 29.9-35.2 [facility] Comment on above: Performed By: #### P T #### [facility] [address] [place] [address] Dr. Tg Fierro MCV (RBC) [Entitic vol] 94.0 fL Normal 81.0-99.0 [facility] Comment on above: Performed By: #### P T #### [facility] [address] [place] [address] Dr. Tg Fierro MONO # 0.4 103/ul Normal 0.3-0.8 [facility] Comment on above: Performed By: #### P T #### [facility] [address] [place] [address] Dr. Tg Fierro Monocytes/100 WBC (Bld) 7.1 % Normal 1.7-12.0 [facility] Comment on above: Performed By: #### P T #### [facility] [address] [place] [address] Dr. Tg Fierro NEUT # 3.2 103/ul Normal 1.4-6.5 [facility] Comment on above: Performed By: #### P T #### [facility] [address] [address] [address] Tg Fierro Neutrophils/100 WBC (Bld) 54.3 % Normal 43.0-75.0 [facility] Comment on above: Performed By: #### P T #### [facility] [address] [place] [address] Dr. Tg Fierro Platelet mean volume (Bld) [Entitic vol] 8.7 fL Critically low 9.5-13.5 [facility] Comment on above: Performed By: #### P T #### [facility] [address] [address] [address] Tg Fierro PLT 295 103/ul Normal 150-450 [facility] Comment on above: Performed By: #### P T #### [facility] [address] [place] [address] Dr. Tg Fierro RBC 4.33 106/ul Normal 4.20-5.40 [facility] Comment on above: Performed By: #### P T #### [facility] [address] [place] [address] Dr. Tg Fierro WBC 5.9 103/ul Normal 4.0-11.0 [facility] Comment on above: Performed By: #### P T #### [facility] [address] [place] [address] Dr. Tg Fierro PROF 14(COMP METB)on 023 Albumin [Mass/Vol] 3.8 g/dL Normal 3.4-5.0 [facility] Comment on above: Performed By: #### C MP #### [facility] [address] [place] [address] Dr. Tg Fierro Albumin/Globulin [Mass ratio] 1.2 {ratio} Normal [facility] Comment on above: Performed By: #### C MP #### [facility] [address] [place] [address] Dr. Tg Fierro ALP [Catalytic activity/Vol] 49 U/L Normal 46-116 [facility] Comment on above: Performed By: #### C MP #### [facility] [address] [address] [address] Tg Fierro ALT [Catalytic activity/Vol] 21 U/L Normal 14-59 [facility] Comment on above: Performed By: #### C MP #### [facility] [address] [address] [address] Tg Fierro Anion gap [Moles/Vol] 13.3 mmol/L Normal [facility] Comment on above: Performed By: #### C MP #### [facility] [address] [address] [address] Tg Fierro AST [Catalytic activity/Vol] 14 U/L Critically low 15-37 [facility] Comment on above: Performed By: #### C MP #### [facility] [address] [place] [address] Dr. Tg Fierro Bilirubin [Mass/Vol] 0.5 mg/dL Normal 0.2-1.0 [facility] Comment on above: Performed By: #### C MP #### [facility] [address] [place] [address] Dr. Tg Fierro Calcium [Mass/Vol] 9.5 mg/dL Normal 8.5-10.1 [facility] Comment on above: Performed By: #### C MP #### [facility] [address] [address] [address] Tg Fierro Chloride [Moles/Vol] 104 mmol/L Normal 98-107 [facility] Comment on above: Performed By: #### C MP #### [facility] [address] [address] [address] Tg Fierro CO2 [Moles/Vol] 29.3 mmol/L Normal 21.0-32.0 [facility] Comment on above: Performed By: #### C MP #### [facility] [address] [address] [address] Tg Fierro Creatinine [Mass/Vol] 0.93 mg/dL Normal 0.55-1.02 [facility] Comment on above: Performed By: #### C MP #### [facility] [address] [address] [address] Tg Fierro EGFR-AF PRYDEINIG >60 Normal >=60 [facility] Comment on above: Performed By: #### C MP #### [facility] [address] [address] [address] Tg Fierro EGFR-NON AF PRYDEINIG 59 mL/min/1.73m2 Critically low >=60 [facility] Comment on above: Performed By: #### C MP #### [facility] [address] [address] [address] Tg Fierro Globulin (S) [Mass/Vol] 3.2 g/dL Normal [facility] Comment on above: Performed By: #### C MP #### [facility] [address] [address] [address] Tg Fierro Glucose [Mass/Vol] 186 mg/dL Critically high 74-106 [facility] Comment on above: Performed By: #### C MP #### [facility] [address] [address] [address] Tg Fierro Potassium [Moles/Vol] 4.6 mmol/L Normal 3.5-5.1 [facility] Comment on above: Performed By: #### C MP #### [facility] [address] [place] [address] Dr. Tg Fierro Protein [Mass/Vol] 7.0 g/dL Normal 6.4-8.2 [facility] Comment on above: Performed By: #### C MP #### [facility] [address] [address] [address] Tg Fierro Sodium [Moles/Vol] 142 mmol/L Normal 136-145 [facility] Comment on above: Performed By: #### C MP #### [facility] [address] [place] [address] Dr. Tg Fierro Urea nitrogen [Mass/Vol] 15.0 mg/dL Normal 7.0-18.0 [facility] Comment on above: Performed By: #### C MP #### [facility] [address] [place] [address] Dr. Tg Fierro Urea nitrogen/Creatinine [Mass ratio] 16.1 mg/mg Normal [facility] Comment on above: Performed By: #### C MP #### [facility] [address] [place] [address] Dr. Tg Fierro SED RATE WESTERGRENon 2022 SED RATE 9 mm/hr Normal <=30 [facility] Comment on above: Performed By: #### C MP #### [facility] [address] [place] [address] Dr. Tg Fierro PROTIMEon 10-14-2022 INR Coag (PPP) [Relative time] 1.94 {INR} Normal [facility] Comment on above: Performed By: #### P T #### [facility] [address] [place] [address] Dr. Tg Fierro INR GUIDELINES SEE BELOW Normal [facility] Comment on above: Result Comment: LAURENCE RED INR: 2.0 - 3.0 CONDITIONS NOT LISTED BELOW 2.5 - 3.5 FOR PROSTHETIC HEART VALVE REPLACEMENT 2.5 - 3.5 RECURRENT THROMBOSIS Performed By: #### P T #### [facility] [address] [place] [address] Dr. Tg Fierro PT Coag (PPP) [Time] 19.8 s Critically high 9.0-11.6 [facility] Comment on above: Performed By: #### P T #### [facility] [address] [place] [address] Dr. Tg Fierro CBC AUTO DIFFon 09-24-2022 BASO # 0.1 103/ul Normal 0.0-0.1 [facility] Comment on above: Performed By: #### P T #### [facility] [address] [place] [address] Dr. Tg Fierro Basophils/100 WBC (Bld) 0.7 % Normal 0.2-2.0 [facility] Comment on above: Performed By: #### P T #### [facility] [address] [place] [address] Dr. Tg Fierro EO # 0.3 103/ul Normal 0.0-0.7 [facility] Comment on above: Performed By: #### P T #### [facility] [address] [address] [address] Tg Fierro Eosinophils/100 WBC (Bld) 3.6 % Normal 0.9-7.0 [facility] Comment on above: Performed By: #### P T #### [facility] [address] [place] [address] Dr. Tg Fierro Erythrocyte distribution width (RBC) [Ratio] 13.4 % Normal 11.0-15.0 [facility] Comment on above: Performed By: #### P T #### [facility] [address] [place] [address] Dr. Tg Fierro Hematocrit (Bld) [Volume fraction] 38.4 % Normal 36.0-48.0 [facility] Comment on above: Performed By: #### P T #### [facility] [address] [place] [address] Dr. Tg Fierro Hemoglobin (Bld) [Mass/Vol] 12.7 g/dL Normal 12.0-16.0 [facility] Comment on above: Performed By: #### P T #### [facility] [address] [place] [address] Dr. Tg Fierro IG # 0.05 10e3/ul Critically high 0.00-0.03 [facility] Comment on above: Performed By: #### P T #### [facility] [address] [place] [address] Dr. Tg Fierro IG % 0.7 % Critically high 0.0-0.5 [facility] Comment on above: Performed By: #### P T #### [facility] [address] [address] [address] Tg Fierro LYMPH # 2.6 103/ul Normal 1.2-3.8 [facility] Comment on above: Performed By: #### P T #### [facility] [address] [place] [address] Dr. Tg Fierro Lymphocytes/100 WBC (Bld) 34.2 % Normal 20.5-60.0 [facility] Comment on above: Performed By: #### P T #### [facility] [address] [place] [address] Dr. Tg Fierro MANUAL DIFF REQ NO Normal [facility] Comment on above: Performed By: #### P T #### [facility] [address] [place] [address] Dr. Tg Fierro MCH (RBC) [Entitic mass] 31.2 pg Normal 26.7-34.0 [facility] Comment on above: Performed By: #### P T #### [facility] [address] [place] [address] Dr. Tg Fierro MCHC (RBC) [Mass/Vol] 33.1 g/dL Normal 29.9-35.2 [facility] Comment on above: Performed By: #### P T #### [facility] [address] [place] [address] Dr. Tg Fierro MCV (RBC) [Entitic vol] 94.3 fL Normal 81.0-99.0 [facility] Comment on above: Performed By: #### P T #### [facility] [address] [place] [address] Dr. Tg Fierro MONO # 0.6 103/ul Normal 0.3-0.8 [facility] Comment on above: Performed By: #### P T #### [facility] [address] [place] [address] Dr. Tg Fierro Monocytes/100 WBC (Bld) 8.1 % Normal 1.7-12.0 [facility] Comment on above: Performed By: #### P T #### [facility] [address] [place] [address] Dr. Tg Fierro NEUT # 4.1 103/ul Normal 1.4-6.5 [facility] Comment on above: Performed By: #### P T #### [facility] [address] [place] [address] Dr. Tg Fierro Neutrophils/100 WBC (Bld) 52.7 % Normal 43.0-75.0 [facility] Comment on above: Performed By: #### P T #### [facility] [address] [place] [address] Dr. Tg Fierro Platelet mean volume (Bld) [Entitic vol] 8.7 fL Critically low 9.5-13.5 [facility] Comment on above: Performed By: #### P T #### [facility] [address] [place] [address] Dr. Tg Fierro PLT 278 103/ul Normal 150-450 [facility] Comment on above: Performed By: #### P T #### [facility] [address] [place] [address] Dr. Tg Fierro RBC 4.07 106/ul Critically low 4.20-5.40 [facility] Comment on above: Performed By: #### P T #### [facility] [address] [place] [address] Dr. Tg Fierro WBC 7.7 103/ul Normal 4.0-11.0 [facility] Comment on above: Performed By: #### P T #### [facility] [address] [place] [address] Dr. Tg Fierro PROF 14(COMP METB)on 023 Albumin [Mass/Vol] 3.9 g/dL Normal 3.4-5.0 [facility] Comment on above: Performed By: #### C MP #### [facility] [address] [place] [address] Dr. Tg Fierro Albumin/Globulin [Mass ratio] 1.4 {ratio} Normal [facility] Comment on above: Performed By: #### C MP #### [facility] [address] [place] [address] Dr. Tg Fierro ALP [Catalytic activity/Vol] 59 U/L Normal 46-116 [facility] Comment on above: Performed By: #### C MP #### [facility] [address] [place] [address] Dr. Tg Fierro ALT [Catalytic activity/Vol] 21 U/L Normal 14-59 [facility] Comment on above: Performed By: #### C MP #### [facility] [address] [address] [address] Tg Fierro Anion gap [Moles/Vol] 10.8 mmol/L Normal [facility] Comment on above: Performed By: #### C MP #### [facility] [address] [address] [address] Tg Fierro AST [Catalytic activity/Vol] 9 U/L Critically low 15-37 [facility] Comment on above: Performed By: #### C MP #### [facility] [address] [address] [address] Tg Fierro Bilirubin [Mass/Vol] 0.3 mg/dL Normal 0.2-1.0 [facility] Comment on above: Performed By: #### C MP #### [facility] [address] [address] [address] Tg Fierro Calcium [Mass/Vol] 9.1 mg/dL Normal 8.5-10.1 [facility] Comment on above: Performed By: #### C MP #### [facility] [address] [place] [address] Dr. Tg Fierro Chloride [Moles/Vol] 104 mmol/L Normal 98-107 [facility] Comment on above: Performed By: #### C MP #### [facility] [address] [address] [address] Tg Fierro CO2 [Moles/Vol] 28.3 mmol/L Normal 21.0-32.0 [facility] Comment on above: Performed By: #### C MP #### [facility] [address] [address] [address] Tg Fierro Creatinine [Mass/Vol] 0.86 mg/dL Normal 0.55-1.02 [facility] Comment on above: Performed By: #### C MP #### [facility] [address] [address] [address] Tg Fierro EGFR-AF PRYDEINIG >60 Normal >=60 [facility] Comment on above: Performed By: #### C MP #### [facility] [address] [address] [address] Tg Fierro EGFR-NON AF PRYDEINIG >60 Normal >=60 [facility] Comment on above: Performed By: #### C MP #### [facility] [address] [address] [address] Tg Fierro Globulin (S) [Mass/Vol] 2.7 g/dL Normal [facility] Comment on above: Performed By: #### C MP #### [facility] [address] [address] [address] Tg Fierro Glucose [Mass/Vol] 120 mg/dL Critically high 74-106 [facility] Comment on above: Performed By: #### C MP #### [facility] [address] [address] [address] Tg Fierro Potassium [Moles/Vol] 4.1 mmol/L Normal 3.5-5.1 [facility] Comment on above: Performed By: #### C MP #### [facility] [address] [place] [address] Dr. Tg Fierro Protein [Mass/Vol] 6.6 g/dL Normal 6.4-8.2 [facility] Comment on above: Performed By: #### C MP #### [facility] [address] [place] [address] Dr. Tg Fierro Sodium [Moles/Vol] 139 mmol/L Normal 136-145 [facility] Comment on above: Performed By: #### C MP #### [facility] [address] [address] [address] Tg Fierro Urea nitrogen [Mass/Vol] 13.0 mg/dL Normal 7.0-18.0 [facility] Comment on above: Performed By: #### C MP #### [facility] [address] [address] [address] Tg Fierro Urea nitrogen/Creatinine [Mass ratio] 15.1 mg/mg Normal [facility] Comment on above: Performed By: #### C MP #### [facility] [address] [place] [address] Dr. Tg Fierro PROTIMEon 09-24-2022 INR Coag (PPP) [Relative time] 1.35 {INR} Normal [facility] Comment on above: Performed By: #### P T #### [facility] [address] [place] [address] Dr. Tg Fierro INR GUIDELINES SEE BELOW Normal [facility] Comment on above: Result Comment: LAURENCE RED INR: 2.0 - 3.0 CONDITIONS NOT LISTED BELOW 2.5 - 3.5 FOR PROSTHETIC HEART VALVE REPLACEMENT 2.5 - 3.5 RECURRENT THROMBOSIS Performed By: #### P T #### [facility] [address] [place] [address] Dr. Tg Fierro PT Coag (PPP) [Time] 14.1 s Critically high 9.0-11.6 [facility] Comment on above: Performed By: #### P T #### [facility] [address] [place] [address] Dr. Tg Fierro SED RATE [facility] 2022 SED RATE 8 mm/hr Normal <=30 [facility] Comment on above: Performed By: #### C MP #### [facility] [address] [place] [address] Dr. Tg Fierro PROTIMEon 09-09-2022 INR Coag (PPP) [Relative time] 1.23 {INR} Normal [facility] Comment on above: Performed By: #### P T #### [facility] [address] [place] [address] Dr. Tg Fierro INR GUIDELINES SEE BELOW Normal [facility] Comment on above: Result Comment: LAURENCE RED INR: 2.0 - 3.0 CONDITIONS NOT LISTED BELOW 2.5 - 3.5 FOR PROSTHETIC HEART VALVE REPLACEMENT 2.5 - 3.5 RECURRENT THROMBOSIS Performed By: #### P T #### [facility] [address] [place] [address] Dr. Tg Fierro PT Coag (PPP) [Time] 12.9 s Critically high 9.0-11.6 [facility] Comment on above: Performed By: #### P T #### [facility] [address] [place] [address] Dr. Tg Fierro ECHOCARDIO M/2D COMPLETEon 0 09-02-2022 ECHOCARDIO M/2D COMPLETE Patient: WILDA SEN Exam Date: 09/02/2022 : 1945 Gender:F Ordering : DR JAYME PEREZ . Admission #: [id number] Family : Order #: [id number] CLICK HERE TO VIEW EXAM ECHOCARDIOGRAM REPORT [...] Dez Bender M.D. on 09/03/2022 at 17:25 [facility] GLYCOHEMOGLOBIN A1Con 2022 ADA RECOMMENDATION SEE BELOW Normal [facility] Comment on above: Result Comment: ADA RECOMMENDED LIMIT 4.0 - 6.0 ADA THERAPEUTIC TARGET < 7.0 ACTION SUGGESTED > 7.0 Performed By: #### A 1C #### [facility] [address] [place] [address] Dr. Tg Fierro Glucose [Mass/Vol] 148 mg/dL Normal [facility] Comment on above: Performed By: #### A 1C #### [facility] [address] [place] [address] Dr. Tg Fierro HbA1c (Bld) [Mass fraction] 6.8 % Critically high 4.5-6.2 [facility] Comment on above: Performed By: #### A 1C #### [facility] [address] [place] [address] Dr. Tg Fierro CBC AUTO DIFFon 08-05-2022 BASO # 0.1 103/ul Normal 0.0-0.1 [facility] Comment on above: Performed By: #### C BC #### [facility] [address] [place] [address] Dr. Tg Fierro Basophils/100 WBC (Bld) 0.8 % Normal 0.2-2.0 [facility] Comment on above: Performed By: #### C BC #### [facility] [address] [place] [address] Dr. Tg Fierro EO # 0.5 103/ul Normal 0.0-0.7 [facility] Comment on above: Performed By: #### C BC #### [facility] [address] [place] [address] Dr. Tg Fierro Eosinophils/100 WBC (Bld) 7.3 % Critically high 0.9-7.0 [facility] Comment on above: Performed By: #### C BC #### [facility] [address] [place] [address] Dr. Tg Fierro Erythrocyte distribution width (RBC) [Ratio] 13.4 % Normal 11.0-15.0 [facility] Comment on above: Performed By: #### C BC #### [facility] [address] [place] [address] Dr. Tg Fierro Hematocrit (Bld) [Volume fraction] 37.1 % Normal 36.0-48.0 [facility] Comment on above: Performed By: #### C BC #### [facility] [address] [place] [address] Dr. Tg Fierro Hemoglobin (Bld) [Mass/Vol] 12.9 g/dL Normal 12.0-16.0 [facility] Comment on above: Performed By: #### C BC #### [facility] [address] [place] [address] Dr. Tg Fierro IG # 0.03 10e3/ul Normal 0.00-0.03 [facility] Comment on above: Performed By: #### C BC #### [facility] [address] [place] [address] Dr. Tg Fierro IG % 0.5 % Normal 0.0-0.5 [facility] Comment on above: Performed By: #### C BC #### [facility] [address] [place] [address] Dr. Tg Fierro LYMPH # 2.3 103/ul Normal 1.2-3.8 [facility] Comment on above: Performed By: #### C BC #### [facility] [address] [place] [address] Dr. Tg Fierro Lymphocytes/100 WBC (Bld) 34.9 % Normal 20.5-60.0 [facility] Comment on above: Performed By: #### C BC #### [facility] [address] [place] [address] Dr. Tg Fierro MANUAL DIFF REQ NO Normal [facility] Comment on above: Performed By: #### C BC #### [facility] [address] [place] [address] Dr. Tg Fierro MCH (RBC) [Entitic mass] 31.0 pg Normal 26.7-34.0 [facility] Comment on above: Performed By: #### C BC #### [facility] [address] [place] [address] Dr. Tg Fierro MCHC (RBC) [Mass/Vol] 34.8 g/dL Normal 29.9-35.2 [facility] Comment on above: Performed By: #### C BC #### [facility] [address] [place] [address] Dr. Tg Fierro MCV (RBC) [Entitic vol] 89.2 fL Normal 81.0-99.0 [facility] Comment on above: Performed By: #### C BC #### [facility] [address] [address] [address] Tg Fierro MONO # 0.4 103/ul Normal 0.3-0.8 [facility] Comment on above: Performed By: #### C BC #### [facility] [address] [place] [address] Dr. Tg Fierro Monocytes/100 WBC (Bld) 6.1 % Normal 1.7-12.0 [facility] Comment on above: Performed By: #### C BC #### [facility] [address] [place] [address] Dr. Tg Fierro NEUT # 3.3 103/ul Normal 1.4-6.5 [facility] Comment on above: Performed By: #### C BC #### [facility] [address] [place] [address] Dr. Tg Fierro Neutrophils/100 WBC (Bld) 50.4 % Normal 43.0-75.0 [facility] Comment on above: Performed By: #### C BC #### [facility] [address] [place] [address] Dr. Tg Fierro Platelet mean volume (Bld) [Entitic vol] 8.6 fL Critically low 9.5-13.5 [facility] Comment on above: Performed By: #### C BC #### [facility] [address] [place] [address] Dr. Tg Fierro PLT 336 103/ul Normal 150-450 [facility] Comment on above: Performed By: #### C BC #### [facility] [address] [place] [address] Dr. Tg Fierro RBC 4.16 106/ul Critically low 4.20-5.40 [facility] Comment on above: Performed By: #### C BC #### [facility] [address] [place] [address] Dr. Tg Fierro WBC 6.4 103/ul Normal 4.0-11.0 [facility] Comment on above: Performed By: #### C BC #### [facility] [address] [place] [address] Dr. Tg Fierro PROF 14(COMP METB)on 023 Albumin [Mass/Vol] 3.9 g/dL Normal 3.4-5.0 [facility] Comment on above: Performed By: #### P T #### [facility] [address] [place] [address] Dr. Tg Fierro Albumin/Globulin [Mass ratio] 1.3 {ratio} Normal [facility] Comment on above: Performed By: #### P T #### [facility] [address] [place] [address] Dr. Tg Fierro ALP [Catalytic activity/Vol] 60 U/L Normal 46-116 [facility] Comment on above: Performed By: #### P T #### [facility] [address] [place] [address] Dr. Tg Fierro ALT [Catalytic activity/Vol] 21 U/L Normal 14-59 [facility] Comment on above: Performed By: #### P T #### [facility] [address] [place] [address] Dr. Tg Fierro Anion gap [Moles/Vol] 15.2 mmol/L Normal [facility] Comment on above: Performed By: #### P T #### [facility] [address] [place] [address] Dr. Tg Fierro AST [Catalytic activity/Vol] 14 U/L Critically low 15-37 [facility] Comment on above: Performed By: #### P T #### [facility] [address] [place] [address] Dr. Tg Fierro Bilirubin [Mass/Vol] 0.4 mg/dL Normal 0.2-1.0 [facility] Comment on above: Performed By: #### P T #### [facility] [address] [address] [address] Tg Fierro Calcium [Mass/Vol] 9.3 mg/dL Normal 8.5-10.1 [facility] Comment on above: Performed By: #### P T #### [facility] [address] [address] [address] Tg Fierro Chloride [Moles/Vol] 102 mmol/L Normal 98-107 [facility] Comment on above: Performed By: #### P T #### [facility] [address] [address] [address] Tg Fierro CO2 [Moles/Vol] 26.8 mmol/L Normal 21.0-32.0 [facility] Comment on above: Performed By: #### P T #### [facility] [address] [address] [address] Tg Fierro Creatinine [Mass/Vol] 0.74 mg/dL Normal 0.55-1.02 [facility] Comment on above: Performed By: #### P T #### [facility] [address] [address] [address] Tg Fierro EGFR-AF PRYDEINIG >60 Normal >=60 [facility] Comment on above: Performed By: #### P T #### [facility] [address] [address] [address] Tg Fierro EGFR-NON AF PRYDEINIG >60 Normal >=60 [facility] Comment on above: Performed By: #### P T #### [facility] [address] [address] [address] Tg Fierro Globulin (S) [Mass/Vol] 3.1 g/dL Normal [facility] Comment on above: Performed By: #### P T #### [facility] [address] [address] [address] Tg Fierro Glucose [Mass/Vol] 148 mg/dL Critically high 74-106 [facility] Comment on above: Performed By: #### P T #### [facility] [address] [address] [address] Tg Fierro Potassium [Moles/Vol] 4.0 mmol/L Normal 3.5-5.1 [facility] Comment on above: Performed By: #### P T #### [facility] [address] [address] [address] Tg Fierro Protein [Mass/Vol] 7.0 g/dL Normal 6.4-8.2 [facility] Comment on above: Performed By: #### P T #### [facility] [address] [address] [address] Tg Fierro Sodium [Moles/Vol] 140 mmol/L Normal 136-145 [facility] Comment on above: Performed By: #### P T #### [facility] [address] [place] [address] Dr. Tg Fierro Urea nitrogen [Mass/Vol] 12.0 mg/dL Normal 7.0-18.0 [facility] Comment on above: Performed By: #### P T #### [facility] [address] [place] [address] Dr. Tg Fierro Urea nitrogen/Creatinine [Mass ratio] 16.2 mg/mg Normal [facility] Comment on above: Performed By: #### P T #### [facility] [address] [place] [address] Dr. Tg Fierro [facility] 30 mm/hr Normal <=30 [facility] Comment on above: Performed By: #### S EDR #### [facility] [address] [place] [address] Dr. Tg Fierro CBC AUTO DIFFon 04-15-2022 BASO # 0.1 103/ul Normal 0.0-0.1 [facility] Comment on above: Performed By: #### C BC #### [facility] [address] [place] [address] Dr. Tg Fierro Basophils/100 WBC (Bld) 0.6 % Normal 0.2-2.0 [facility] Comment on above: Performed By: #### C BC #### [facility] [address] [address] [address] Tg Fierro EO # 0.2 103/ul Normal 0.0-0.7 [facility] Comment on above: Performed By: #### C BC #### [facility] [address] [place] [address] Dr. Tg Fierro Eosinophils/100 WBC (Bld) 3.1 % Normal 0.9-7.0 [facility] Comment on above: Performed By: #### C BC #### [facility] [address] [place] [address] Dr. Tg Fierro Erythrocyte distribution width (RBC) [Ratio] 13.6 % Normal 11.0-15.0 [facility] Comment on above: Performed By: #### C BC #### [facility] [address] [place] [address] Dr. Tg Fierro Hematocrit (Bld) [Volume fraction] 42.3 % Normal 36.0-48.0 [facility] Comment on above: Performed By: #### C BC #### [facility] [address] [place] [address] Dr. Tg Fierro Hemoglobin (Bld) [Mass/Vol] 13.2 g/dL Normal 12.0-16.0 [facility] Comment on above: Performed By: #### C BC #### [facility] [address] [place] [address] Dr. Tg Fierro IG # 0.04 10e3/ul Critically high 0.00-0.03 [facility] Comment on above: Performed By: #### C BC #### [facility] [address] [place] [address] Dr. Tg Fierro IG % 0.5 % Normal 0.0-0.5 [facility] Comment on above: Performed By: #### C BC #### [facility] [address] [place] [address] Dr. Tg Fierro LYMPH # 2.5 103/ul Normal 1.2-3.8 [facility] Comment on above: Performed By: #### C BC #### [facility] [address] [place] [address] Dr. Tg Fierro Lymphocytes/100 WBC (Bld) 31.6 % Normal 20.5-60.0 [facility] Comment on above: Performed By: #### C BC #### [facility] [address] [place] [address] Dr. Tg Fierro MANUAL DIFF REQ NO Normal [facility] Comment on above: Performed By: #### C BC #### [facility] [address] [place] [address] Dr. Tg Fierro MCH (RBC) [Entitic mass] 30.3 pg Normal 26.7-34.0 [facility] Comment on above: Performed By: #### C BC #### [facility] [address] [place] [address] Dr. Tg Fierro MCHC (RBC) [Mass/Vol] 31.2 g/dL Normal 29.9-35.2 [facility] Comment on above: Performed By: #### C BC #### [facility] [address] [place] [address] Dr. Tg Fierro MCV (RBC) [Entitic vol] 97.0 fL Normal 81.0-99.0 [facility] Comment on above: Performed By: #### C BC #### [facility] [address] [place] [address] Dr. Tg Fierro MONO # 0.5 103/ul Normal 0.3-0.8 [facility] Comment on above: Performed By: #### C BC #### [facility] [address] [place] [address] Dr. Tg Fierro Monocytes/100 WBC (Bld) 6.3 % Normal 1.7-12.0 [facility] Comment on above: Performed By: #### C BC #### [facility] [address] [place] [address] Dr. Tg Fierro NEUT # 4.5 103/ul Normal 1.4-6.5 [facility] Comment on above: Performed By: #### C BC #### [facility] [address] [place] [address] Dr. Tg Fierro Neutrophils/100 WBC (Bld) 57.9 % Normal 43.0-75.0 [facility] Comment on above: Performed By: #### C BC #### [facility] [address] [place] [address] Dr. Tg Fierro Platelet mean volume (Bld) [Entitic vol] 8.6 fL Critically low 9.5-13.5 [facility] Comment on above: Performed By: #### C BC #### [facility] [address] [place] [address] Dr. Tg Fierro PLT 295 103/ul Normal 150-450 [facility] Comment on above: Performed By: #### C BC #### [facility] [address] [place] [address] Dr. Tg Fierro RBC 4.36 106/ul Normal 4.20-5.40 [facility] Comment on above: Performed By: #### C BC #### [facility] [address] [place] [id number] [address] Tg Fierro WBC 7.8 103/ul Normal 4.0-11.0 [facility] Comment on above: Performed By: #### C BC #### [facility] [address] [place] [address] Dr. Tg Fierro PROF 14(COMP METB)on 022 Albumin [Mass/Vol] 4.5 g/dL Normal 3.4-5.0 [facility] Comment on above: Performed By: #### C MP #### [facility] [address] [place] [address] Dr. Tg Fierro Albumin/Globulin [Mass ratio] 1.5 {ratio} Normal [facility] Comment on above: Performed By: #### C MP #### [facility] [address] [place] [address] Dr. Tg Fierro ALP [Catalytic activity/Vol] 62 U/L Normal 46-116 [facility] Comment on above: Performed By: #### C MP #### [facility] [address] [place] [address] Dr. Tg Fierro ALT [Catalytic activity/Vol] 25 U/L Normal 14-59 [facility] Comment on above: Performed By: #### C MP #### [facility] [address] [address] [address] Fierro Anion gap [Moles/Vol] 10.6 mmol/L Normal [facility] Comment on above: Performed By: #### C MP #### [facility] [address] [address] [address] Tg Fierro AST [Catalytic activity/Vol] 12 U/L Critically low 15-37 [facility] Comment on above: Performed By: #### C MP #### [facility] [address] [address] [address] Tg Fierro Bilirubin [Mass/Vol] 0.5 mg/dL Normal 0.2-1.0 [facility] Comment on above: Performed By: #### C MP #### [facility] [address] [place] [address] Dr. Tg Fierro Calcium [Mass/Vol] 9.8 mg/dL Normal 8.5-10.1 [facility] Comment on above: Performed By: #### C MP #### [facility] [address] [place] [address] Dr. Tg Fierro Chloride [Moles/Vol] 102 mmol/L Normal 98-107 [facility] Comment on above: Performed By: #### C MP #### [facility] [address] [address] [address] Tg Fierro CO2 [Moles/Vol] 31.8 mmol/L Normal 21.0-32.0 [facility] Comment on above: Performed By: #### C MP #### [facility] [address] [address] [address] Tg Fierro Creatinine [Mass/Vol] 0.88 mg/dL Normal 0.55-1.02 [facility] Comment on above: Performed By: #### C MP #### [facility] [address] [address] [address] Tg Fierro EGFR-AF PRYDEINIG >60 Normal >=60 [facility] Comment on above: Performed By: #### C MP #### [facility] [address] [address] [address] Tg Fierro EGFR-NON AF PRYDEINIG >60 Normal >=60 [facility] Comment on above: Performed By: #### C MP #### [facility] [address] [address] [address] Tg Fierro Globulin (S) [Mass/Vol] 3.1 g/dL Normal [facility] Comment on above: Performed By: #### C MP #### [facility] [address] [address] [address] Tg Fierro Glucose [Mass/Vol] 187 mg/dL Critically high 74-106 [facility] Comment on above: Performed By: #### C MP #### [facility] [address] [address] [address] Tg Fierro Potassium [Moles/Vol] 4.4 mmol/L Normal 3.5-5.1 [facility] Comment on above: Performed By: #### C MP #### [facility] [address] [address] [address] Tg Fierro Protein [Mass/Vol] 7.6 g/dL Normal 6.4-8.2 [facility] Comment on above: Performed By: #### C MP #### [facility] [address] [address] [address] Tg Fierro Sodium [Moles/Vol] 140 mmol/L Normal 136-145 [facility] Comment on above: Performed By: #### C MP #### [facility] [address] [address] [address] Tg Fierro Urea nitrogen [Mass/Vol] 14.0 mg/dL Normal 7.0-18.0 [facility] Comment on above: Performed By: #### C MP #### [facility] [address] [address] [address] Tg Fierro Urea nitrogen/Creatinine [Mass ratio] 15.9 mg/mg Normal [facility] Comment on above: Performed By: #### C MP #### [facility] [address] [place] [address] Dr. Tg Fierro SED RATE WESTERGRENon 2021 SED RATE 5 mm/hr Normal <=30 [facility] Comment on above: Performed By: #### S EDR #### [facility] [address] [place] [address] Dr. Tg Fierro CBC AUTO DIFFon 02-07-2022 BASO # 0.0 103/ul Normal 0.0-0.1 [facility] Comment on above: Performed By: #### P T #### [facility] [address] [place] [address] Dr. Tg Fierro Basophils/100 WBC (Bld) 0.6 % Normal 0.2-2.0 [facility] Comment on above: Performed By: #### P T #### [facility] [address] [place] [address] Dr. Tg Fierro EO # 0.4 103/ul Normal 0.0-0.7 [facility] Comment on above: Performed By: #### P T #### [facility] [address] [place] [address] Dr. Tg Fierro Eosinophils/100 WBC (Bld) 5.4 % Normal 0.9-7.0 [facility] Comment on above: Performed By: #### P T #### [facility] [address] [place] [address] Dr. Tg Fierro Erythrocyte distribution width (RBC) [Ratio] 13.5 % Normal 11.0-15.0 [facility] Comment on above: Performed By: #### P T #### [facility] [address] [place] [address] Dr. Tg Fierro Hematocrit (Bld) [Volume fraction] 39.4 % Normal 36.0-48.0 [facility] Comment on above: Performed By: #### P T #### [facility] [address] [place] [address] Dr. Tg Fierro Hemoglobin (Bld) [Mass/Vol] 12.8 g/dL Normal 12.0-16.0 [facility] Comment on above: Performed By: #### P T #### [facility] [address] [place] [address] Dr. Tg Fierro IG # 0.02 10e3/ul Normal 0.00-0.03 [facility] Comment on above: Performed By: #### P T #### [facility] [address] [place] [address] Dr. Tg Fierro IG % 0.3 % Normal 0.0-0.5 [facility] Comment on above: Performed By: #### P T #### [facility] [address] [place] [address] Dr. Tg Fierro LYMPH # 2.4 103/ul Normal 1.2-3.8 [facility] Comment on above: Performed By: #### P T #### [facility] [address] [place] [address] Dr. Tg Fierro Lymphocytes/100 WBC (Bld) 36.2 % Normal 20.5-60.0 [facility] Comment on above: Performed By: #### P T #### [facility] [address] [place] [address] Dr. Tg Fierro MANUAL DIFF REQ NO Normal [facility] Comment on above: Performed By: #### P T #### [facility] [address] [place] [address] Dr. Tg Fierro MCH (RBC) [Entitic mass] 31.0 pg Normal 26.7-34.0 [facility] Comment on above: Performed By: #### P T #### [facility] [address] [place] [address] Dr. Tg Fierro MCHC (RBC) [Mass/Vol] 32.5 g/dL Normal 29.9-35.2 [facility] Comment on above: Performed By: #### P T #### [facility] [address] [place] [address] Dr. Tg Fierro MCV (RBC) [Entitic vol] 95.4 fL Normal 81.0-99.0 [facility] Comment on above: Performed By: #### P T #### [facility] [address] [place] [address] Dr. Tg Fierro MONO # 0.5 103/ul Normal 0.3-0.8 [facility] Comment on above: Performed By: #### P T #### [facility] [address] [place] [address] Dr. Tg Fierro Monocytes/100 WBC (Bld) 8.0 % Normal 1.7-12.0 [facility] Comment on above: Performed By: #### P T #### [facility] [address] [place] [address] Dr. Tg Fierro NEUT # 3.3 103/ul Normal 1.4-6.5 [facility] Comment on above: Performed By: #### P T #### [facility] [address] [place] [address] Dr. Tg Fierro Neutrophils/100 WBC (Bld) 49.5 % Normal 43.0-75.0 [facility] Comment on above: Performed By: #### P T #### [facility] [address] [place] [address] Dr. Tg Fierro Platelet mean volume (Bld) [Entitic vol] 8.7 fL Critically low 9.5-13.5 [facility] Comment on above: Performed By: #### P T #### [facility] [address] [place] [address] Dr. Tg Fierro PLT 276 103/ul Normal 150-450 [facility] Comment on above: Performed By: #### P T #### [facility] [address] [place] [address] Dr. Tg Fierro RBC 4.13 106/ul Critically low 4.20-5.40 [facility] Comment on above: Performed By: #### P T #### [facility] [address] [place] [address] Dr. Tg Fierro WBC 6.7 103/ul Normal 4.0-11.0 [facility] Comment on above: Performed By: #### P T #### [facility] [address] [place] [address] Dr. Tg Fierro GLYCOHEMOGLOBIN A1Con 2021 ADA RECOMMENDATION SEE BELOW Normal [facility] Comment on above: Result Comment: ADA RECOMMENDED LIMIT 4.0 - 6.0 ADA THERAPEUTIC TARGET < 7.0 ACTION SUGGESTED > 7.0 Performed By: #### A 1C #### [facility] [address] [place] [address] Dr. Tg Fierro Glucose [Mass/Vol] 151 mg/dL Normal [facility] Comment on above: Performed By: #### A 1C #### [facility] [address] [place] [address] Dr. Tg Fierro HbA1c (Bld) [Mass fraction] 6.9 % Critically high 4.5-6.2 [facility] Comment on above: Performed By: #### A 1C #### [facility] [address] [place] [address] Dr. Tg Fierro PROF 14(COMP METB)on 022 Albumin [Mass/Vol] 3.8 g/dL Normal 3.4-5.0 [facility] Comment on above: Performed By: #### P T #### [facility] [address] [place] [address] Dr. Tg Fierro Albumin/Globulin [Mass ratio] 1.3 {ratio} Normal [facility] Comment on above: Performed By: #### P T #### [facility] [address] [place] [address] Dr. Tg Fierro ALP [Catalytic activity/Vol] 43 U/L Critically low 46-116 [facility] Comment on above: Performed By: #### P T #### [facility] [address] [place] [address] Dr. Tg Fierro ALT [Catalytic activity/Vol] 19 U/L Normal 14-59 [facility] Comment on above: Performed By: #### P T #### [facility] [address] [place] [address] Dr. Tg Fierro Anion gap [Moles/Vol] 13.7 mmol/L Normal [facility] Comment on above: Performed By: #### P T #### [facility] [address] [address] [address] Tg Fierro AST [Catalytic activity/Vol] 11 U/L Critically low 15-37 [facility] Comment on above: Performed By: #### P T #### [facility] [address] [place] [address] Dr. Tg Fierro Bilirubin [Mass/Vol] 0.4 mg/dL Normal 0.2-1.0 [facility] Comment on above: Performed By: #### P T #### [facility] [address] [place] [address] Dr. Tg Fierro Calcium [Mass/Vol] 9.1 mg/dL Normal 8.5-10.1 [facility] Comment on above: Performed By: #### P T #### [facility] [address] [place] [address] Dr. Tg Fierro Chloride [Moles/Vol] 104 mmol/L Normal 98-107 [facility] Comment on above: Performed By: #### P T #### [facility] [address] [place] [address] Dr. Tg Fierro CO2 [Moles/Vol] 28.5 mmol/L Normal 21.0-32.0 [facility] Comment on above: Performed By: #### P T #### [facility] [address] [place] [address] Dr. Tg Fierro Creatinine [Mass/Vol] 0.77 mg/dL Normal 0.55-1.02 [facility] Comment on above: Performed By: #### P T #### [facility] [address] [place] [address] Dr. Tg Fierro EGFR-AF PRYDEINIG >60 Normal >=60 [facility] Comment on above: Performed By: #### P T #### [facility] [address] [place] [address] Dr. Tg Fierro EGFR-NON AF PRYDEINIG >60 Normal >=60 [facility] Comment on above: Performed By: #### P T #### [facility] [address] [place] [address] Dr. Tg Fierro Globulin (S) [Mass/Vol] 3.0 g/dL Normal [facility] Comment on above: Performed By: #### P T #### [facility] [address] [address] [address] Tg Fierro Glucose [Mass/Vol] 124 mg/dL Critically high 74-106 [facility] Comment on above: Performed By: #### P T #### [facility] [address] [address] [address] Tg Fierro Potassium [Moles/Vol] 4.2 mmol/L Normal 3.5-5.1 [facility] Comment on above: Performed By: #### P T #### [facility] [address] [place] [address] Dr. Tg Fierro Protein [Mass/Vol] 6.8 g/dL Normal 6.4-8.2 [facility] Comment on above: Performed By: #### P T #### [facility] [address] [address] [address] Tg Fierro Sodium [Moles/Vol] 142 mmol/L Normal 136-145 [facility] Comment on above: Performed By: #### P T #### [facility] [address] [place] [address] Dr. Tg Fierro Urea nitrogen [Mass/Vol] 12.0 mg/dL Normal 7.0-18.0 [facility] Comment on above: Performed By: #### P T #### [facility] [address] [place] [address] Dr. Tg Fierro Urea nitrogen/Creatinine [Mass ratio] 15.6 mg/mg Normal [facility] Comment on above: Performed By: #### P T #### [facility] [address] [address] [address] Tg Fierro SED RATE [facility] 2021 SED RATE 8 mm/hr Normal <=30 [facility] Comment on above: Performed By: #### C MP #### [facility] [address] [place] [address] Dr. Tg Fierro COVID Quick Testingon 2020 Result Positive [facility] [employer] Other Vital Signs Date Time Vital Sign Value Performing Clinician Facility 10-14-2023 09:09-0400 Body temperature 98.6 [degF] Williams SHEPHERD [facility] 10-14-2023 09:09-0400 Diastolic blood pressure 61 mm[Hg] Williams SHEPHERD [facility] 10-14-2023 09:09-0400 Heart rate 80 /min Williams [facility] 10-14-2023 09:09-0400 Respiratory rate 16 /min Williams SHEPHERD [facility] 10-14-2023 09:09-0400 Systolic blood pressure 115 mm[Hg] Williams SHEPHERD [facility] 08-13-2023 10:47-0500 Blood Pressure Location Renatopower SANTACRUZ [facility] 08-13-2023 10:47-0500 Diastolic blood pressure 62 mm[Hg] Renato SANTACRUZ [facility] 08-13-2023 10:47-0500 Heart rate 82 /min Renato SANTACRUZ [facility] 08-13-2023 10:47-0500 Respiratory rate 16 /min Renato SANTACRUZ [facility] 08-13-2023 10:47-0500 Systolic blood pressure 105 mm[Hg] Renato SANTACRUZ [facility] 08-07-2023 09:48-0500 Body height 160 cm Jayme Perez MD Work Phone: [facility] [employer] 08-07-2023 09:48-0500 Body mass index (BMI) [Ratio] 24.45 kg/m2 Jayme Perez MD Work Phone: [facility] 08-07-2023 09:48-0500 Body weight 62.6 kg Jayme Perez MD Work Phone: [facility] 08-07-2023 09:48-0500 Heart rate 57 /min Jayme Perez MD Work Phone: [facility] 08-07-2023 09:48-0500 SaO2% (BldA) [Mass fraction] 98 % Jayme Perez MD Work Phone: [facility] [employer] 07-25-2023 09:20-0500 Body height 160.02 cm Lou Glover Other [employer] Other 07-25-2023 09:20-0500 Body mass index (BMI) [Ratio] 23.91 kg/m2 Lou Glover Other [employer] Other 07-25-2023 09:20-0500 Body temperature 97.7 [degF] Lou Glover Other [employer] Other 07-25-2023 09:20-0500 Body weight 61.24 kg Lou Glover Other [employer] Other 07-25-2023 09:20-0500 Diastolic blood pressure 74 mm[Hg] Lou Glover Other [employer] Other 07-25-2023 09:20-0500 Respiratory rate 18 /min Lou Glover Other [employer] Other 07-25-2023 09:20-0500 SaO2% (BldA) [Mass fraction] 96 % Lou Glover Other [employer] Other 07-25-2023 09:20-0500 Systolic blood pressure 120 mm[Hg] Lou Glover Other [employer] Other 03-26-2023 13:15-0400 Body height 160.02 cm MD Jayme Perez Work Phone: [facility] 03-26-2023 13:15-0400 Body temperature 98.2 [degF] MD Jayme Perez Work Phone: [facility] 03-26-2023 13:15-0400 Body weight 66 kg MD Jayme Perez Work Phone: [facility] 03-26-2023 13:15-0400 Diastolic blood pressure 71 mm[Hg] MD Jayme Perez Work Phone: [facility] 03-26-2023 13:15-0400 Heart rate 87 /min MD Jayme Perez Work Phone: [facility] 03-26-2023 13:15-0400 Respiratory rate 16 /min MD Jayme Perez Work Phone: [facility] 03-26-2023 13:15-0400 SaO2% (BldA) [Mass fraction] 97 % MD Jayme Perez Work Phone: [facility] 03-26-2023 13:15-0400 Systolic blood pressure 117 mm[Hg] MD Jayme Perez Work Phone: [facility] 05-21-2021 13:15-0500 Body height 160.02 cm Astrid Baker Other [employer] Other 05-21-2021 13:15-0500 Body mass index (BMI) [Ratio] 23.91 kg/m2 Astrid Baker Other [employer] Other 05-21-2021 13:15-0500 Body temperature 97.3 [degF] Astrid Baker Other [employer] Other 05-21-2021 13:15-0500 Body weight 61.24 kg Astrid Baker Other [employer] Other 05-21-2021 13:15-0500 SaO2% (BldA) [Mass fraction] 94 % Astrid Baker Other [employer] Other Encounters Encounter Date Encounter Type Care Provider Facility Start: 12-31-2023 End: 12-31-2023 ambulatory FELICIA FARMER Not Available Start: 10-14-2023 End: 10-15-2023 ambulatory Williams SHEPHERD Facility:[facility] Start: 10-14-2023 End: 10-14-2023 Patient encounter procedure Williams SHEPHERD [facility] [employer] Start: 09-01-2023 End: 09-01-2023 ambulatory FELICIA FARMER Not Available Start: 08-20-2023 Clinisync Result Encounter Generic External Data Provider [facility] External Department Unsolicited Start: 08-20-2023 Clinisync Result Encounter Generic External Data Provider [facility] External Department Unsolicited Start: 08-14-2023 End: 08-15-2023 ambulatory Renato SANTACRUZ Facility:[id number] Start: 08-13-2023 End: 08-14-2023 ambulatory Renato SANTACRUZ Facility:[facility] Start: 08-13-2023 End: 08-13-2023 Patient encounter procedure Renato SANTACRUZ [facility] [employer] Start: 08-07-2023 End: 08-07-2023 Office outpatient visit 25 minutes Jayme Perez MD Work Phone: [facility] Comment on above: Chronic diastolic he art failure (CMS/HCC) (Primary Dx); 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 (CMS/HCC); Type 2 diabetes mellitus with stage 3a chronic kidney disease, without long-term current use of insulin (HCC) (CMS/HCC); Stage 3a chronic kidney disease (HCC) (CMS/HCC); Microalbuminuria; Former smoker; 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, adult; longterm current use of anticoagulant; Psoriatic arthropathy (CMS/HCC); Gastroesophageal reflux disease without esophagitis Start: 08-07-2023 End: 08-07-2023 ambulatory JAYME PEREZ Not Available Start: 07-30-2023 End: 07-30-2023 ambulatory JAYME PEREZ Not Available Start: 07-25-2023 End: 07-25-2023 ambulatory Lou Glover Other [employer] Other Start: 07-25-2023 Office outpatient vi sit 25 minutes Lou Glover [facility] Start: 07-10-2023 End: 07-10-2023 ambulatory FELICIAZULEIMA FARMER Not Available Start: 07-02-2023 End: 07-02-2023 ambulatory FELICIA D JOSE MIGUELER Not Available Start: 06-25-2023 End: 06-25-2023 ambulatory FELICIA D ZAHLER Not Available Start: 06-18-2023 End: 06-18-2023 ambulatory FELICIA D ZAHLER Not Available Start: 04-07-2023 End: 04-07-2023 ambulatory Williams Shepherd Facility:[facility] Start: 04-07-2023 End: 04-07-2023 Departed Referred MD Jayme Perez Work Phone: [facility] [place] Start: 04-07-2023 End: 04-08-2023 ambulatory MD Jayme Perez Work Phone: [facility] Work Phone: Start: 03-26-2023 End: 03-26-2023 ambulatory Williams Shepherd Facility:[facility] Start: 03-26-2023 End: 03-26-2023 Patient encounter procedure MD Jayme Perez Work Phone: [facility] Work Phone: Start: 03-20-2023 End: 03-21-2023 ambulatory Williams SHEPHERD Facility:[facility] Start: 03-20-2023 End: 03-20-2023 Lab Drop off Williams SHEPHERD [facility] Start: 03-20-2023 End: 03-20-2023 Patient encounter procedure Williams SHEPHERD [facility] Start: 02-03-2023 End: 02-04-2023 ambulatory [...] Facility: Start: 05-21-2021 End: 05-21-2021 ambulatory Astrid Olivia Other [employer] Other Start: 05-21-2021 Office outpatient vi sit [...] External Data Provider Start: 08-14-2023 Lithotripsy [place] Start: 08-26-2019 Extracorporeal shock wave lithotripsy of calculus of kidney Williams COOK Start: 04-12-2016 Cystoscopic laser lithotripsy of ureteric calculus Williams SHEPHERD Start: 03-28-2016 Cystoscopic removal of ureteric stent Williams SHEPHERD Start: 02-15-2016 Extracorporeal shock wave lithotripsy of calculus of kidney Williams COOK Start: 01-16-2016 Endoscopic retrograd e pyelogram Williams SHEPHERD Start: 06-29-2013 Extracorporeal shock wave lithotripsy of calculus of kidney Williams COOK Start: 09-10-2010 Cystoscopic removal of ureteric stent Williams SHEPHERD Start: 08-29-2010 Extracorporeal shock wave lithotripsy of calculus of kidney Williams COOK Start: 08-23-2010 Cystoscopic insertio n of ureteric [...] Start: 05-19-2025 Glaucoma screening Diabetes: Retinopathy Screening [facility] Start: 07-12-2024 ambulatory Ambulatory Facility:[facility] Start: 05-22-2024 Medicare Annual Wellness (AWV) Medicare Annual Wellness (AWV) [facility] Start: 09-01-2023 End: 09-01-2023 Patient encounter procedure 09/01/2023 10:30 AM EST Office Visit [facility] [address] [place] [address] Felicia Farmer DO [address] [place] [address] [facility] Start: 05-06-2023 Hemoglobin A1c measurement Diabetes: Hemoglobin A1C [facility] Start: 04-07-2023 Abdomen endoscopy OR Cysto/Retro/Stent/Stone/ Holmium Laser (Right) [facility] Start: 03-14-2023 Influenza vaccination Influenza Vaccine (#1) [facility] Start: 1951 Pneumococcal Vaccine: 65+ Years (1 - PCV) Pneumococcal Vaccine: 65+ Years (1 - PCV) [facility] Immunizations Immunization Date Immunization Notes Care Provider Fa cility NEGATED: Highlighted row has not occurred!08-13-2023 influenza virus vaccine, unspecified formulation Renato SANTACRUZ [facility] NEGATED: Highlighted row has not occurred!08-13-2023 SARS-CoV-2 mRNA (tozinameran 5y-11y) vaccine Renato SANTACRUZ [facility] NEGATED: Highlighted row has not occurred!09-21-2019 influenza virus vaccine, live, attenuated, for intranasal use Williams [facility] NEGATED: Highlighted row has not occurred!08-20-2019 influenza virus vaccine, live, attenuated, for intranasal use [facility] Payers Date Payer Category Payer Self-pay [id number] 2022 Unknown PRYDEINIG CONTINE NTAL INS CO PRYDEINIG CONTINENTAL INS CO [id number] 2022-Present [address] [address] [place] [address] [id number]. 3.647192.315 2022 Medicare [id number] 2.16.840.1.537635.19 2002 Medicare MEDICARE MEDICAR E PART B [id number] 2002-[place] [address] Medicare [id number]. 3.860326.315 1959 Medicare [id number] 2.16.840.1.469692.19 1959 Unknown [id number] 1946 Unknown [id number] 2.16.840.1.870356.3.579.2.59 3 1946 Unknown [id number] 2.16.840.1.845204.3.579.2.59 3 1946 Unknown [id number] 2.16.840.1.145727.3.579.2.59 3 1946 Unknown [id number] 2.16.840.1.979248.3.579.2.59 3 1946 Unknown [id number] 2.16.840.1.206662.3.579.2.59 3 1946 Unknown [id number] 2.16.840.1.966605.3.579.2.59 3 1946 Unknown [id number] 2.16.840.1.288284.3.579.2.59 3 1946 Unknown [id number] 2.16.840.1.457128.3.579.2.59 3 1946 Unknown [id number] 2.16.840.1.884200.3.579.2.59 3 1946 Unknown [id number] 2.16.840.1.003243.3.579.2.59 3 1946 Unknown [id number] 2.16.840.1.723044.3.579.2.59 3 1946 Unknown [id number] 2.16.840.1.591278.3.579.2.59 3 1946 Unknown [id number] 2.16.840.1.539385.3.579.2.59 3 1946 Unknown [id number] 2.16.840.1.217150.3.579.2.72 7 1946 Unknown [id number] 2.16.840.1.875668.3.579.2.72 7 1946 Unknown [id number] 2.16.840.1.535496.3.579.2.72 7 1946 Unknown [id number] 2.16.840.1.024520.3.579.2.72 7 1946 Unknown [id number] 2.16.840.1.944501.3.579.2.72 7 1946 Unknown [id number] 2.16.840.1.473985.3.579.2.72 7 1946 Unknown [id number] 2.16.840.1.117181.3.579.2.72 7 1946 Unknown [id number] 2.16.840.1.292552.3.579.2.12 59 1946 Unknown [id number] 2.16.840.1.072290.3.579.2.12 59 1946 Unknown [id number] 2.16.840.1.780794.3.579.2.12 59 1946 Unknown [id number] 2.16.840.1.795805.3.579.2.12 59 1946 Unknown [id number] 2.16.840.1.923642.3.579.2.12 59 1946 Unknown [id number] 2.16.840.1.369702.3.579.2.12 59 1946 Unknown [id number] 2.16.840.1.048244.3.579.2.12 59 1946 Unknown [id number] 2.16.840.1.487178.3.579.2.12 59 Unknown [id number] 2.16.840.1.634926.3.579.2.53 1 Unknown [id number] 2.16.840.1.173048.3.579.2.53 1 Social History Date Type Detail Facility Sex Assigned At [employer] Other Start: 02-03-2023 End: 10-14-2023 Tobacco smoking status Ex-smoker (finding) [facility] Tobacco smoking status Never [facility] Start: 12-11-2022 End: 05-22-2023 Sex Assigned At Female [facility] Start: 1945 Sex Assigned At Female F [facility] End: 07-14-1986 History of tobacco use Current smoker [facility] End: 07-14-1986 History of tobacco use Cigarette Smoker [facility] Start: 08-07-2023 Tobacco use and exposure Smokeless tobacco non-user [facility] Start: 08-07-2023 End: 08-14-2023 Alcohol intake Ex-drinker (finding) [facility] Start: 12-11-2022 End: 05-22-2023 History of Social function [facility] Within the last year , have you been afraid of your partner or ex-partner? No [facility] Are you now , , , , never or living with a partner? [facility] How often to you hav e [...] got money to buy more. Never true [facility] Start: 01-24-2023 Education [facility] Start: 01-06-2023 Gender identity Identifies as female gender (finding) [facility] Functional Status Date Assessment Result Facility 10-14-2023 Functional Status N/A [facility] 08-13-2023 Functional Status N/A [facility] Clinical Notes 02-21-2022 to 10-14-2023 Jayme Perez [...] include: ?8 oz (237 mL) of milk, dxgiorm-aqksgnwvwlbz-nucfm milk, and calcium-fortifiedfruit juice. Calcium-fortified means that [...] ?Spinach (cooked), rhubarb, beets, sweet potatoes, and [place] chard. ?Peanuts. ?Potato chips, palauan fries, and baked potatoes with skin on. ?Nuts and nut products. ?Chocolate. If you regularly take a diuretic medicine, make sure to eat at least 1 or 2 servings of fruits or vegetables that are high in potassium each day. These include: ?Avocado. ?Banana. ?[place], prune, carrot, or tomato juice. ?Baked potato. [...] magnesium, fish oil, or vitamin B6. Take aono-jfb-gbdheuj and prescription medicines only as told by [...] Casseroles. Pizza. Lasagna. Frozen meals. Potato chips. [place] fries. The items listed above may not [...] provider. Document Revised: 10/10/2022 Document Reviewed: 10/10/2022 [employer] Patient Education 2022 [employer]. Follow Up Care 08/13/2023 10:19:44 With:CORA AGUIAR, Williams Venegas, URL Address: [address] [place] [address] [address] [place] [id number] When: Unknown [facility] 08-13-2023 Hospital Discharge instructions Patient Education 08/13/2023 [...] including vitamins, herbs, eye drops, creams, and ltyp-jnx-pcuxjyn medicines. Any problems you or family members [...] provider tells you to take them. ?Taking kevi-yhn-ithhnsj medicines, vitamins, herbs, and supplements. Eating and [...] provider. Document Revised: 11/06/2022 Document Reviewed: 03/04/2022 [employer] Patient Education 2022 [employer]. Follow Up Care 08/12/2023 14:37:00 With:ANGELITO AGUIAR, Renato Arzola, URL Address: [facility] [address] , [place] [address]- [phone] When: Unknown Comments:sched ureteroscopyf/u w/ [facility] scheduled 10/14/23 [facility] [place] 08-07-2023 History of Present illness Narrative Patient [...] 36.1 (H) 9.0 - 11.6 sec Final [facility] INR 08/05/2023 3.67 Final Comment: DESIRED [...] 0.55 - 1.02 mg/dL Final [facility] EGFR-AF PRYDEINIG 07/22/2023 >60 >=60 Final [facility] EGFR-NON AF PRYDEINIG 07/22/2023 55 (L) >=60 Final BUN CREATININE [...] without long-term current use of insulin (HCC) ([facility]) - metFORMIN (Glucophage) 1000 MG [...] treats. Stage 3a chronic kidney disease (HCC) ([facility]) New, Chronic problem, unstable, progressing, [...] cardiovascular disease. Former smoker 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, adult longterm current use of anticoagulant Chronic problem, that is monitored monthly, and be seen in the monthly INR results. documented in this encounter [facility] 07-25-2023 Evaluation note Encounter Date Diagnosis [...] care as directed rx of steroid and Grover, cool mist humidification. May use Tylenol as directed. Immediate eval for signs of respiratory distress, difficulty breathing poor PO intake, signs of dehydration, fever, or other concerning symptoms. Otherwise, follow up with PCP in 2-3 days. Patient verbalizes understanding and is agreeable to treatment plan. Patient sent home in stable condition. [employer] Other 08-11-2022 NotePROCEDURE: XR FOOT LT MIN 3 VIEWS COMPARISON: None. HISTORY: Pain in left foot FINDINGS: BONES:No acute fracture or dislocation. Mild enthesopathic spurring of the calcaneus. SOFT TISSUES:Negative. No visible soft tissue swelling. EFFUSION:None visible. OTHER: Negative. IMPRESSION: Mild enthesopathic spurring of the calcaneus Electronically authenticated by: BLANCA ZAVALA Date: 2022-02-21 [facility]ments Appointment Date:07/12/2024 10:45:00 AM Scheduled Provider:Williams SHEPHERD MD Location:[facility] Appointment Type:URO Office Visit [facility] Evaluation + Plan note Future Appointments Appointment Date:07/12/2024 10:45:00 AM Scheduled Provider:Williams SHEPHERD MD Location:[facility] Appointment Type:URO Office Visit Diagnostic Tests Pending * Calculi Analysis [facility]ments Appointment Date:10/14/2023 09:15:00 AM Scheduled Provider:Williams SHEPHERD MD Location:[facility] Appointment Type:URO Office Visit Appointment Date:07/12/2024 10:45:00 AM Scheduled Provider:[facility]ERD [facility] evaluation noteNort [employer] Other evaluaiigx noteNo assessment information available [facility] Work Phone: Evaluation note* Diagnosis Chronic diastolic heart failure ([facility]/HCC)- Primary Chronic diastolic heart failure 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 ([facility]/HCC) Atrial fibrillation Type 2 diabetes mellitus with stage 3a chronic kidney disease, without long-term current use of insulin (HCC) ([facility]/HCC) Stage 3a chronic kidney disease (HCC) ([facility]/HCC) Microalbuminuria Proteinuria Former smoker Personal history of tobacco use, presenting hazards to health 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, 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 Hospital Discharge instructions No data available for this section [facility] [place] note No data available for this section [facility] [employer] Summary Purpose Family History No Family History [...] and content) DATE CREATED AUTHOR 12/20/2022 [facility] [place] [facility] DATE CREATED AUTHOR AUTHOR'S ORGANIZ ATION 06/09/2023 [facility] DATE CREATED AUTHOR AUTHOR'S ORGANIZ ATION 10/15/2023 [facility] DATE CREATED AUTHOR AUTHOR'S ORGANIZ ATION 01/02/2024 [facility] [employer] EPIC Patient Care team informatio n (unrecognized section and content) Team Status: Active Member Role Status Dates Jayme Perez MD Primary Care Provider Active Team Status: Inactive Member Role Status Dates Jayme Perez MD Primary Care Provider Active Williams Shepherd MD Attending Provider Active 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 [employer] provides no warranty or guarantee of the accuracy or completeness of information in this document.
== END 2024-01-12 10:10 | disposition home or self-care (01) ==
LOC: LAB 10:11
PROVIDERS: PCP Family Medicine; Visit Provider Internal Medicine Rheumatology
DX: E55.9 Vitamin D deficiency, unspecified (principal); M81.0 Age-related osteoporosis without current pathological fracture
CPT/HCPCS: 36415; 82306

== ENCOUNTER 2024-01-12 10:16 | Outpatient (OUT) | payer MEDICARE, SELFPAY ==
[2024-01-12 11:27] LABS: INR 2.61; Prothrombin Time 25.2 sec (9.0-11.6)
== END 2024-01-12 10:17 | disposition home or self-care (01) ==
LOC: LAB 10:19
PROVIDERS: PCP Family Medicine; Visit Provider Family Medicine
DX: E55.9 Vitamin D deficiency, unspecified (principal); M81.0 Age-related osteoporosis without current pathological fracture; I48.0 Paroxysmal atrial fibrillation; Z79.01 Long term (current) use of anticoagulants; Z51.81 Encounter for therapeutic drug level monitoring
CPT/HCPCS: 36415; 82306; 85610

== ENCOUNTER 2024-01-14 12:33 | Outpatient (OUT) | payer MEDICARE, SELFPAY ==
--- NOTE | 2024-01-14 12:55 | XR_ITS ---
The [address] [address] Patient Name: KASEY SEN MRN: [id number] date: 1945 Sex: F Assigned Patient Location: [facility] Current Patient Location: [facility] Accession/Order Number: [id number] Exam Date: 01/14/2024 12:48 Report Date: 01/14/2024 15:50 At the request of: RADAMES MONTEIRO Procedure: XR DEXA axial skeleton EXAMINATION: XR DEXA axial skeleton HISTORY: Osteoporosis COMPARISON: DEXA bone densitometry 05/09/2021 TECHNIQUE: Dual-energy X-ray absorptiometry (DXA) was performed. FINDINGS: SPINE ANALYSIS: Average bone mineral density is 0.794 g/cm2. T-score (standard deviation relative to young adult mean): -3.2 . +5.4% change since prior study. HIP ANALYSIS: Lowest bone mineral density is within the left femoral neck, 0.758 g/cm2. T-score (standard deviation relative to young adult mean): -2.0 . +4.2% change since prior study. XR/XR DEXA axial skeleton IMPRESSION: World Health Organization Classification: Osteoporosis - High Fracture Risk FRAX: Cannot calculate. Pharmacologic treatment recommendations * No uniform recommendation applies to all patients. Management plans must be individualized. * Consider initiating pharmacologic treatment in postmenopausal women and men >= 50 years of age who have the following: Primary fracture prevention: * T-score <= - 2.5 at the femoral neck, total hip, lumbar spine, 33% radius (some uncertainty with existing data) by DXA. * Low bone mass (osteopenia: T-score between - 1.0 and - 2.5) at the femoral neck or total hip by DXA with a 10-year hip fracture risk >= 3% or a 10-year major osteoporosis-related fracture risk >= 20% (i.e., clinical vertebral, hip, forearm, or proximal humerus) based on the [place]-adapted FRAXregistered model. Secondary fracture prevention: * Fracture of the hip or vertebra regardless of BMD [4, 5]. * Fracture of proximal humerus, pelvis, or distal forearm in persons with low bone mass (osteopenia: T-score between - 1.0 and - 2.5). The decision to treat should be individualized in persons with a fracture of the proximal humerus, pelvis, or distal forearm who do not have osteopenia or low BMD [12, 13]. Leida MS, Keshawn SL, Edgar KL, Yelena EM, Elizabeth KG, AJ, Kitty ES. The clinician's guide to prevention and treatment of osteoporosis. Osteoporos Int. 2021;33(10):6605-3854. doi: 10.1007/u42135-059-21211-u. Epub 2021Nov 08. Erratum in: Osteoporos Int. 2021Feb 07;: PMID: [id number]; PMCID: [id number]. Electronically authenticated by: MYRTLE KHOURY Date: 01/14/2024 15:50
== END 2024-01-14 12:34 | disposition home or self-care (01) ==
PROVIDERS: PCP Family Medicine; Visit Provider Internal Medicine Rheumatology
DX: M81.0 Age-related osteoporosis without current pathological fracture (principal); M06.9 Rheumatoid arthritis, unspecified
CPT/HCPCS: 77080

== ENCOUNTER 2024-02-13 11:19 | Outpatient (OUT) | payer MEDICARE, SELFPAY ==
--- OUTSIDE RECORDS SUMMARY | 2024-02-13 11:27 | XMS_ITS | CCD ---
Author Organization [facility] Care Team Providers Care Recovery Coordinator Name Role Phone Astrid Baker Unavailable CAYETANO, [...] Admitting Unavailable MONTEIRO, DR CRUM Attending Unavailable CAYETANO, [...] able MD Jayme Perez Primary Care Provider [phone] MD Williams Shepherd Attending Provider Williams Shepherd Admitting Unavailable Williams Shepherd Attending Unavailable Jayme Perez Primary Care Unavailable Williams Shepherd Attending Unavailable Jayme Perez Primary Care Unavailable Williams Shepherd Admitting Unavailable Lou Glover Unavailable Jayme Perez MD Primary Care Provider Jayme Perez MD Unavailable Renato SANTACRUZ Attending [...] anaphylaxis, Unknown (qualifier value) [facility] (1 source) sulfaSALAzine Drug Allergy rash [facility] Other (1 source) Ciprofloxacin Drug Allergy 03-30-20 13 [facility] (2 sources) Ketorolac; Translations: [Toradol] Drug Allergy 03-30-20 13 [facility] (2 sources) metroNIDAZOLE; Translations: [MetroGel] Drug Allergy 03-30-20 13 [facility] (1 source) NSAIDs Drug allergy (disorder) 03-30-20 13 [facility] (2 sources) pioglitazone; Translations: [Actos] Drug Allergy 03-30-20 13 [facility] (1 source) Sulfonamides (Antibiotic) Drug allergy (disorder) 03-30-20 13 [facility] (10 sources) Ketorolac; Translations: [ketorolac] Drug Allergy 03-26-20 Unknown (qualifier value), Nausea (finding) [facility] Comment on above: Severe (10 sources) Latex; Translations: [latex] Drug allergy 01-07-20 Blister of skin AND/OR mucosa (finding) [facility] (8 sources) Non-steroidal anti-inflammatory agent; Translations: [NSAIDs] Drug allergy 02-19-20 22 Unknown (qualifier value) [facility] (11 sources) pioglitazone; Translations: [pioglitazone] Drug Allergy 01-07-20 23 Unknown (qualifier value) [facility] (5 sources) Sulfonamides (Antibiotic); Translations: [sulfa drugs] Drug allergy Unknown (qualifier value) [facility] (7 sources) metroNIDAZOLE; Translations: [metronidazole] Drug Allergy 02-19-20 22 Redness of Skin [facility] (2 sources) Sulfonamides (Antibiotic); Translations: [Sulfa (Sulfonamide Antibiotics)] Allergy to substance 03-26-20 Rash [facility] (2 sources) NSAIDS (Non-Steroidal Anti-Inflamma; Translations: [NSAIDS (Non-Steroidal Anti-Inflamma] Allergy to substance 03-26-20 Anaphylaxis [facility] (1 source) Ciprofloxacin Drug Allergy 03-26-20 23 [facility] (1 source) Ketorolac Drug Allergy 03-26-20 [facility] (1 source) pioglitazone Drug Allergy 03-26-20 [facility] (1 source) Non-steroidal anti-inflammatory agent Drug allergy rash [facility] Other (4 sources) Substance with sulfonamide structure and antibacterial mechanism of action (substance) Drug allergy 02-19-20 rash [facility] Other (3 sources) Ketorolac Allergy to substance 01-07-20 Nausea Only [facility] (3 sources) Hydrocodone Bit-Homatrop Mbr Propensity to adverse reactions 08-07-19 Dizziness [facility] (3 sources) Medical Adhesive Remover Drug Allergy 02-19-20 [facility] Medications Current Medications Medication Drug Class(es) Dates [...] Refill(s) 0 Start Date: 08/13/23 Status: Ordered [id number] actuat albuterol 0.09 mg/actuat metered dose [...] Date: 09/19/20 Status: Ordered Cyanocobalamin-Liver Extract (Vitamin A71-Cneiw) Tablet (1 source) Start: 03-26-2023 take 1 tablet by mouth once daily Cyanocobalamin-Liver Extract (Vitamin I42-Hvjov) Tablet Active 1 TAB PO every day at noon March 25, 2023 11:00pm dextromethorphan hydrobromide 1.5 mg/ml / pyrilamine maleate 1.5 mg/ml oral solution (1 source) Uncompetitive A-erjkys-U-aspar muñoz Receptor Antagonist, Sigma-1 Agonist Start: 07-25-2023 take 10 mL by mouth every eight hours [place] DM 7.5-7.5 MG/5ML 10 mL Orally every 8 hours for 5 days Jul, Active esomeprazole 20 mg oral tablet (8 sources) Proton Pump Inhibitor Start: 08-17-2019 Nexium 20 mg, Oral, As Directed, Refills(s) 0 Start Date: 08/17/19 Status: Ordered Start: 08-17-2019 Nexium Oral, D aily, Refills(s) 0 Start Date: 08/17/19 Status: Ordered take 1 capsule by [facility] once daily esomeprazole (NexIUM) 20 MG [...] Start: 08-12-2023 take 1 capsule by mo [facility] every twenty-four hours in the [...] 12-12-2022 12-12-2022 Chronic Other aftercare (1 source) senior care (current) use of anticoagulants; 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: [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] Onset: 12-11-2022 Episodic Other aftercare (5 sources) Encounter for therapeutic drug level monitoring; Translations: [ENC THERAPEUTC DRUG LEVL MONITORING] Onset: 10-18-2022 Episodic Other aftercare (1 source) Other medical terminologist (current) drug therapy; Translations: [OTH [facility] CURRENT DRUG THERAPY] Onset: 10-31-2022 Episodic Other aftercare (7 sources) Long-term current use of anticoagulant; 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 ? Peanuts. ? Potato chips, canadian fries, and baked potatoes with skin on. ? Nuts and nut products. ? Chocolate. ? If you regularly take a diuretic medicine, make sure to eat at least 1 or 2 servings of fruits or vegetables that are high in potassium each day. These include: ? Avocado. ? Banana. ? [place], prune, carrot, or tomato juice. ? Baked [...] fish oil, or vitamin B6. ? Take unut-hmh-rfoauiz and prescription medicines only as told by your health care provider. These include supplements. What foods sh (more content not included)... Normal [facility] Urology Office/Clinic Noteon 10-14-2023 Urology Office/Clinic Note Chief Complaint Pt is here for 3 month w/ met w/u & [facility] HPI Staff 6 month follow up w/KUB Pt canceled Cysto/R retro/possible: ureteroscopy, laser, basket, stent placement 04/07/23 due to passing stones Pt was then seen at [facility] on 08/12/23 due to abdominal pain, pt [...] with voice recognition artificial intelligence software, specifically Vertro, EyeEm and or MeBeam. Substitutions may have occurred due to the inherent limitations of voice recognition and artificial intelligence software. 1. Ureteral stone with hydronephrosis (N13.2: Hydronephrosis with renal and ureteral calculous obstruction) [facility] ER visit 08/12/23 due to R [...] bilateral nephrolithiasis. -See #1 3. 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 [...] Information CORA AGUIAR, Williams P, URL [address] [place] [id number] Additional Instructions: 06/2024 with [facility] Patient Education Dietary Guidelines to Help Prevent Kidney Stones I, Charisse Rutherford, personally scribed for Dr. Shepherd on 10/14/2023 09:33:56. Electronically signed by (more content not included)... [facility] Comment on above: Result Comment: Elec tronically Signed By: Williams SHEPHERD MD\.br\Date and Time Signed: 10/14/23 09:38 EDT\.br\Electronically Co-Signed By: Charisse Rutherford\.br\Date and Time Co-Signed: 10/14/23 09:34 EDT RAD - MISCon 10-10-2023 RAD - MISC [id number] .00TIFF [facility] Lab Reportson 08-27-2023 Lab Reports [id number]#1 .00TIFF [facility] Lab Reportson 08-25-2023 Lab Reports [id number]#1 .00TIFF [facility] Lab Reports [id number] .00TIFF [facility] Lab Reportson 08-22-2023 Lab Reports [id number] .00TIFF [facility] Lab Reportson 08-21-2023 Lab Reports [id number] .00TIFF [facility] Lab Reports [id number]#1 .00TIFF [facility] ALL BUNon 08-20-2023 Urea nitrogen [Mass/Vol] 12.0 mg/dL 7.0 - 18.0 mg/dL [facility] ALL CARBON DIOXIDEon 024 CO2 [Moles/Vol] 30.1 mmol/L 21.0 - 32.0 mmol/L [facility] ALL CHLORIDEon 08-20-2023 Chloride [Moles/Vol] 104 mmol/L 98 - 107 mmol/L [facility] ALL PHOSPHOROUSon 08-20-2023 Phosphate [Mass/Vol] 4.1 mg/dL 2.6 - 4.7 mg/dL [facility] ALL SODIUMon 08-20-2023 Sodium [Moles/Vol] 141 mmol/L 136 - 145 mmol/L [facility] ALL URIC ACIDon 08-20-2023 Urate [Mass/Vol] 4.4 mg/dL 2.6 - 6.0 mg/dL [facility] CALCIUMon 08-20-2023 Calcium [Mass/Vol] 9.1 mg/dL 8.5 - 10.1 mg/dL [facility] No Panel Informationon 08-20 [facility] CREATININEon 08-20-2023 Creatinine [Mass/Vol] 0.86 mg/dL 0.55 - 1.02 mg/dL [facility] GFR/1.73 sq M.predicted CKD-EPI (S/P/Bld) [Vol rate/Area] >60 60 - PINF [facility] EGFR-NON AF MONEGASQUE >60 60 - PINF [facility] Consent for Procedure/Surger yon 08-15-2023 Consent for Procedure/Surgery [id number] .00TIFF Normal [facility] ED Note-Physicianon 08-15-19 ED Note-Physician [id number]#1. 00TIFF Normal [facility] Lab Reportson 08-15-2023 Lab Reports [id number]#1. 00TIFF Normal [facility] Lab Reports [id number]#1 .00TIFF Normal [facility] Lab Reports [id number]#1 .00TIFF Normal [facility] Operative Reporton Operative Report [id number]#1 .00TIFF Normal [facility] RAD - CT Reporton 08-15-2023 RAD - CT Report [id number]#1. 00TIFF Normal [facility] Ambulatory Visit Summaryon 0 08-13-2023 Ambulatory [...] AGUIAR, Williams Venegas Where: [facility] Ju Normal [address] [place] [address]- \.br\ You Need to Schedule the Following Appointments\.br \ Follow Up with ANGELITO AGUIAR, Renato Arzola, URL When: \.br\ Comments:\.br\ sched ureteroscopy\.br \ f/u w/ [facility] scheduled 10/14/23\.br\ Where:\.br\ [facility] [address]br\ [place] [address]-\.br\ [phone]\.br\ Medications\.br\ What How Much When Instructions\.br \ [...] murmur\.br\ History of uterine cancer\.br\ Hx of care home use of blood thinners\.br\ Kidney stones\.br\ Nocturia\.br\ [...] including vitamins, herbs, eye drops, creams, and rrje-sjs-tfbbisl medicines.\.br\ ? \.br\ Any problems you or [...] you to take them.\.br\ ? \.br\ Taking vtqa-mke-zrekfqc medicines, vitamins, herbs, and supplements.\.br \ Eating [...] You may also have tests, such [facility] Patient Educationon 08-13-19 Patient Education Nephrology [...] including vitamins, herbs, eye drops, creams, and ljrs-sxz-geweeyk medicines. ? Any problems you or family [...] tells you to take them. ? Taking scqb-ozv-zkrhycp medicines, vitamins, herbs, and supplements. Eating and [...] pieces (more content not included)... Normal [facility] Urology Office/Clinic Noteon 08-13-2023 Urology Office/Clinic Note Chief Complaint Patient is here for follow up to [facility] ER HPI Staff Patient is here for f/u to [facility] ER on 08/12/23 due to [...] Hydronephrosis with renal and ureteral calculous obstruction) [facility] ER visit 08/12/23 due to R [...] abdominal pain) See #1 4. Anticoagulated (Z79.01: senior care (current) use of anticoagulants) On warfarin 3mg for a-fib. States she did not take this last night. Advised pt not to take her dose today either. Follow-up With When Contact Information ANGELITO AGUIARRenato, URL [facility] [address] [place] [phone] Additional Instructions: sched ureteroscopy f/u w/ [facility] scheduled 10/14/23 Patient Education Laser Therapy for Kidney Stones Channing, Amy Gallagher, personally scribed for Dr. Santacruz on 08/13/2023 11:35:03. . Documentation recorded by the scribe, Amy Gallagher, accurately reflects the services(s) I performed and decisions made by me. Authenticated by Dr. Santacruz on 08/13/2023 11:37:02. Problem List/Past Medical History Ongoi (more content not included)... Normal [facility] Comment on above: Result Comment: Elec tronically Signed By: Renato SANTACRUZ MD\.br\Date and Time Signed: 08/13/23 11:37 EST\.br\Electronically Co-Signed By: Amy Gallagher\.br\Date and Time Co-Signed: 08/13/23 11:35 EST COVID/FLU/RSV RT-PCRon 07-25 SARS-CoV-2 (COVID-19) RNA TREASURE+probe Ql (Unsp spec) Negative [facility] Other COVID/FLU/RSV RT-PCR Negative [facility] Other COVID/FLU/RSV RT-PCR Positive [facility] Other Calculus Analysison 03-27-20 23 Calcium oxalate dihydrate Infrared spectroscopy (Stone) [Mass fraction] 100 % Invalid Interpretation Code [facility] Comment on above: Performed By: #### 1 [id number] ####[facility] [address] [place] [address] Color (Stone) Roper Invalid Interpretation Code [facility] Comment on above: Performed By: #### 1 [id number] ####[facility] [address] [place] [address] Composition Comment Invalid Interpretation Code [facility] Comment on above: Result Comment: Perc entage (Represents the % composition) Performed By: #### 1 [id number] ####[facility] [address] [place] [address] Disclaimer: Comment Invalid Interpretation Code [facility] Comment on above: Result Comment: This test was developed and its performance characteristics determined by [facility]. It has not been cleared or approved by the Food and Drug Administration. Performed at: [facility] [address] [id number] PhD Silvestre Esquivel Performed By: #### 1 [id number] ####[facility] [address] [place] [address] Laboratory comment Noam (Report) Comment Invalid Interpretation Code [facility] Comment on above: Result Comment: Coco goode questions regarding Calculi Analysis contact [facility] at: [phone]. Performed By: #### 1 [id number] ####[address] [address] Please Note: Comment Invalid Interpretation Code [facility] Comment on above: Result Comment: Calc javier report will follow via computer, mail or glass forming crew member delivery. Performed By: #### 1 [id number] ####[address] [place] [address] Size (Stone) [Entitic vol] 6x4 Invalid Interpretation Code [facility] Comment on above: Result Comment: Sing le piece received. Performed By: #### 1 [id number] ####[address] [place] [address] Specimen source subject Nom Comment Invalid Interpretation Code [facility] Comment on above: Result Comment: Not provided Performed By: #### 1 [id number] ####[facility] [address] [place] [address] Stone Photo Comment Invalid Interpretation Code [facility] Comment on above: Result Comment: Phot ograph will follow under a separate cover Performed By: #### 1 [id number] ####[facility] [address] [place] [address] Weight (Stone) 49 mg Invalid Interpretation Code [facility] Comment on above: Performed By: #### 1 [id number] ####[facility] [address] [place] [address] Lab Reportson 03-27-2023 Lab Reports [id number]. 00CD:127 Normal [facility] Activated partial thrombopla stin time (aPTT) in platelet poor plasma by coagulation aOrdered By: Williams Shepherd on 03-26-2023 aPTT Coag (PPP) [Time] 35.9 s 25.1-36.5 [facility] Comment on above: A hematocrit value g reater than 55% may lead to inaccurate results in coagulation testing. Patients having hematocrit values >55% require a special collection tube for coagulation studies. Please contact the laboratory at [phone] for redraw instructions. Basic Metabolic Panelon 03-14 Anion gap [Moles/Vol] 13.0 mmol/L Normal 6.0-15.0 [facility] Comment on above: Performed By: #### P T, BMP, CBC, PTT #### [facility] [address] [place] [address] Calcium [Mass/Vol] 10.0 mg/dL Normal 8.6-10.3 [facility] Comment on above: Result Comment: PERF ORMED BY: [place] [address] PATHOLOGIST RABIES INSPECTOR BERNIE GRAYSON M.D. Performed By: #### P T, BMP, CBC, PTT #### [facility] [address] Chloride [Moles/Vol] 104 mmol/L Normal 98-107 [facility] Comment on above: Performed By: #### P T, BMP, CBC, PTT #### [facility] [address] [place] [id number] [place] CO2 [Moles/Vol] 30.0 mmol/L Normal 21.0-31.0 [facility] Comment on above: Performed By: #### P T, BMP, CBC, PTT #### [facility] [address] [place] [address] [place] Creatinine [Mass/Vol] 0.85 mg/dL Normal 0.60-1.20 [facility] Comment on above: Performed By: #### P T, BMP, CBC, PTT #### [facility] [address] GFR/1.73 sq M.predicted MDRD (S/P/Bld) [Vol rate/Area] mL/min/{1.73_m2} Normal [facility] Comment on above: Performed By: #### P T, BMP, CBC, PTT #### [facility] [address] Glucose [Mass/Vol] 111 mg/dL High 70-100 [facility] Comment on above: Result Comment: Sylvia Glucose Reference Range is dependent on time and content of last meal. Glucose of more than 200 mg/dL in a nonstressed, ambulatory subject supports the diagnosis of Diabetes Mellitus. ADA recommended reference range Performed By: #### P T, BMP, CBC, PTT #### [facility] [address] Potassium [Moles/Vol] 5.0 mmol/L Normal 3.5-5.1 [facility] Comment on above: Performed By: #### P T, BMP, CBC, PTT #### [address] Sodium [Moles/Vol] 142 mmol/L Normal 136-145 [facility] Comment on above: Performed By: #### P T, BMP, CBC, PTT #### [facility] [address] [place] [address] Urea nitrogen [Mass/Vol] 12 mg/dL Normal 7-25 [facility] Comment on above: Performed By: #### P T, BMP, CBC, PTT #### [facility] [address] Basophils Auto (Bld) [#/Vol] Ordered By: Williams Shepherd on 03-26-2023 Basophils (Bld) [#/Vol] 0.0 10*3/uL 0.0-0.2 [facility] Basophils/100 WBC Auto (Bld) Ordered By: Williams Shepherd on 03-26-2023 Basophils/100 WBC (Bld) 0.8 % . [facility] Calcium [Mass/volume] in Ser um or PlasmaOrdered By: Williams Shepherd on 03-26-2023 Calcium [Mass/Vol] 10.0 mg/dL 8.6-10.3 [facility] Carbon dioxide, total [Moles /volume] in Serum or PlasmaOrdered By: Williams Shepherd on 03-26-2023 CO2 [Moles/Vol] 30.0 mmol/L 21.0-31.0 [facility] Chloride [Moles/volume] in S fartun or PlasmaOrdered By: Williams Shepherd on 03-26-2023 Chloride [Moles/Vol] 104 mmol/L 98-107 [facility] Complete Blood Count Auto Di ffon 03-26-2023 Basophils (Bld) [#/Vol] 0.0 10*3/uL Normal 0.0-0.2 [facility] Comment on above: Result Comment: PERF ORMED BY: [place] [address] PATHOLOGIST RABIES INSPECTOR BERNIE GRAYSON M.D. Performed By: #### P T, BMP, CBC, PTT #### [facility] [address] [place] [address] Basophils/100 WBC (Bld) 0.8 % Normal . [facility] Comment on above: Performed By: #### P T, BMP, CBC, PTT #### [facility] [address] [place] [address] [place] Eosinophils (Bld) [#/Vol] 0.3 10*3/uL Normal 0.0-0.45 [facility] Comment on above: Performed By: #### P T, BMP, CBC, PTT #### [address] Eosinophils/100 WBC (Bld) 4.3 % Normal . [facility] Comment on above: Performed By: #### P T, BMP, CBC, PTT #### [facility] [address] [place] [address] Erythrocyte distribution width (RBC) [Ratio] 14.8 % Normal 11.9-15.3 [facility] Comment on above: Performed By: #### P T, BMP, CBC, PTT #### [address] Hematocrit (Bld) [Volume fraction] 40.3 % Normal 34.0-46.4 [facility] Comment on above: Performed By: #### P T, BMP, CBC, PTT #### [address] Hemoglobin (Bld) [Mass/Vol] 13.3 g/dL Normal 11.8-15.4 [facility] Comment on above: Performed By: #### P T, BMP, CBC, PTT #### [address] Lymphocytes (Bld) [#/Vol] 2.2 10*3/uL Normal 1.00-4.8 [facility] Comment on above: Performed By: #### P T, BMP, CBC, PTT #### [address] Lymphocytes/100 WBC (Bld) 36.9 % Normal . [facility] Comment on above: Performed By: #### P T, BMP, CBC, PTT #### [address] MCH (RBC) [Entitic mass] 31.1 pg Normal 24.7-34.3 [facility] Comment on above: Performed By: #### P T, BMP, CBC, PTT #### [address] MCV (RBC) [Entitic vol] 94.4 fL Normal 80-100 [facility] Comment on above: Performed By: #### P T, BMP, CBC, PTT #### [address] Mean Corpuscular HGB Conc 32.9 g/dL Normal 32.0-35.0 [facility] Comment on above: Performed By: #### P T, BMP, CBC, PTT #### [facility] [address] Monocytes (Bld) [#/Vol] 0.5 10*3/uL Normal 0.0-0.8 [facility] Comment on above: Performed By: #### P T, BMP, CBC, PTT #### [address] Monocytes/100 WBC (Bld) 7.8 % Normal . [facility] Comment on above: Performed By: #### P T, BMP, CBC, PTT #### [address] Neutrophils (Bld) [#/Vol] 3.0 10*3/uL Normal 1.8-7.7 [facility] Comment on above: Performed By: #### P T, BMP, CBC, PTT #### [address] Neutrophils/100 WBC (Bld) 50.2 % Normal . [facility] Comment on above: Performed By: #### P T, BMP, CBC, PTT #### [facility] [address] [place] [address] NRBC% 0.3 /100{WBC} Normal 0-0.5 [facility] Comment on above: Performed By: #### P T, BMP, CBC, PTT #### [facility] [address] [place] [address] Platelet mean volume (Bld) [Entitic vol] 7.1 fL Normal 6.3-10.7 [facility] Comment on above: Performed By: #### P T, BMP, CBC, PTT #### [facility] [address] [place] [address] [place] Platelets (Bld) [#/Vol] 363 10*3/uL Normal 150-450 [facility] Comment on above: Performed By: #### P T, BMP, CBC, PTT #### [facility] [address] [place] [address] [place] RBC (Bld) [#/Vol] 4.27 10*6/uL Normal 3.60-5.00 [facility] Comment on above: Performed By: #### P T, BMP, CBC, PTT #### [facility] [address] WBC (Bld) [#/Vol] 5.9 10*3/uL Normal 3.8-11.6 [facility] Comment on above: Performed By: #### P T, BMP, CBC, PTT #### [facility] [address] [place] [address] Creatinine [Mass/volume] in Serum or PlasmaOrdered By: Williams Shepherd on 03-26-2023 Creatinine [Mass/Vol] 0.85 mg/dL 0.60-1.20 [facility] ECG 12 lead ECGon 03-26-2023 ECG 12 lead ECG [facility] [place] [address] [place] [address] Electrocardiograph Report Signed Patient: Wilda Sen MR#: [id number] 8 : 1945 Acct:[id number] Age/Sex: 77 / F ADM Date: 03/26/23 Loc: Room: Type: [facility] Attending Dr: Williams [...] By Maru Whitehead DO 03/26 190 Normal [facility] Eosinophils Auto (Bld) [#/Vo l]Ordered By: Williams Shepherd on 03-26-2023 Eosinophils (Bld) [#/Vol] 0.3 10*3/uL 0.0-0.45 [facility] Eosinophils/100 WBC Auto (Bl d)Ordered By: Williams Shepherd on 03-26-2023 Eosinophils/100 WBC (Bld) 4.3 % . [facility] Erythrocyte distribution wid th Auto (RBC) [Ratio]Ordered By: Williams Shepherd on 03-26-2023 Erythrocyte distribution width (RBC) [Ratio] 14.8 % 11.9-15.3 [facility] Glucose [Mass/volume] in Ser um or PlasmaOrdered By: Williams Shepherd on 03-26-2023 Glucose [Mass/Vol] 111 mg/dL 70-100 [facility] Comment on above: ADA recommended refe rence rangeRandom Glucose Reference Range is dependent on time and content of last meal. Glucose of more than 200 mg/dL in a nonstressed, ambulatory subject supports the diagnosis of Diabetes Mellitus. Hematocrit Auto (Bld) [Volum e fraction]Ordered By: Williams Shepherd on 03-26-2023 Hematocrit (Bld) [Volume fraction] 40.3 % 34.0-46.4 [facility] Hemoglobin [Mass/volume] in BloodOrdered By: Williams Shepherd on 03-26-2023 Hemoglobin (Bld) [Mass/Vol] 13.3 g/dL 11.8-15.4 [facility] INR in Platelet poor plasma by Coagulation assayOrdered By: Williams Shepherd on 03-26-2023 INR Coag (PPP) [Relative time] 2.3 {INR} [facility] Comment on above: INR Therapeutic Rang e [...] RBC Auto (Bld) [#/Vol] 5.9 10*3/uL 3.8-11.6 [facility] Lymphocytes Auto (Bld) [#/Vo l]Ordered By: Williams Shepherd on 03-26-2023 Lymphocytes (Bld) [#/Vol] 2.2 10*3/uL 1.00-4.8 [facility] Lymphocytes/100 WBC Auto (Bl d)Ordered By: Williams Shepherd on 03-26-2023 Lymphocytes/100 WBC (Bld) 36.9 % . [facility] MCH Auto (RBC) [Entitic mass ]Ordered By: Williams Shepherd on 03-26-2023 MCH (RBC) [Entitic mass] 31.1 pg 24.7-34.3 [facility] MCHC Auto (RBC) [Mass/Vol]Or dered By: Williams Shepherd on 03-26-2023 MCHC (RBC) [Mass/Vol] 32.9 g/dL 32.0-35.0 [facility] MCV Auto (RBC) [Entitic vol] Ordered By: Williams Shepherd on 03-26-2023 MCV (RBC) [Entitic vol] 94.4 fL 80-100 [facility] Monocytes Auto (Bld) [#/Vol] Ordered By: Williams Shepherd on 03-26-2023 Monocytes (Bld) [#/Vol] 0.5 10*3/uL 0.0-0.8 [facility] Monocytes/100 WBC Auto (Bld) Ordered By: Williams Shepherd on 03-26-2023 Monocytes/100 WBC (Bld) 7.8 % . [facility] Neutrophils Auto (Bld) [#/Vo l]Ordered By: Williams Shepherd on 03-26-2023 Neutrophils (Bld) [#/Vol] 3.0 10*3/uL 1.8-7.7 [facility] Neutrophils/100 WBC Auto (Bl d)Ordered By: Williams Shepherd on 03-26-2023 Neutrophils/100 WBC (Bld) 50.2 % . [facility] No Panel InformationOrdered By: Williams Shepherd on 03-26-2023 Estimated GFR (CKD-EPI) > 60.0 mL/Min [facility]acy Creatinine Clearance (Chem N/A [facility] Nucleated erythrocytes [Pres ence] in Blood by Automated countOrdered By: Williams Shepherd on 03-26-2023 Nucleated RBC Auto Ql (Bld) 0.3 /100{WBC} 0-0.5 [facility] Partial Thromboplastin Timeo n 03-26-2023 aPTT Coag (Bld) [Time] 35.9 s Normal 25.1-36.5 [facility] Comment on above: Result Comment: A he matocrit value greater than 55% may lead to inaccurate results in coagulation testing. Patients having hematocrit values >55% require a special collection tube for coagulation studies. Please contact the laboratory at [phone] for redraw instructions. PERFORMED BY: [place] [address] PATHOLOGIST [employer] INSPECTOR BERNIE GRAYSON M.D. Performed By: #### P T, BMP, CBC, PTT #### [address] Platelet mean volume Auto (B ld) [Entitic vol]Ordered By: Williams Shepherd on 03-26-2023 Platelet mean volume (Bld) [Entitic vol] 7.1 fL 6.3-10.7 [facility] Platelets Auto (Bld) [#/Vol] Ordered By: Wliliams Shepherd on 03-26-2023 Platelets (Bld) [#/Vol] 363 10*3/uL 150-450 [facility] Potassium [Moles/volume] in Serum or PlasmaOrdered By: Williams Shepherd on 03-26-2023 Potassium [Moles/Vol] 5.0 mmol/L 3.5-5.1 [facility] Prothrombin Time INRon 03-26 INR Coag (PPP) [Relative time] 2.3 {INR} Normal [facility] Comment on above: Result Comment: INR Therapeutic [...] P T, BMP, CBC, PTT #### [facility] [address] [place] [address] [place] PT Coag (PPP) [Time] 26.6 s High 9.0-12.9 [facility] Comment on above: Result Comment: A he matocrit value greater than 55% may lead to inaccurate results in coagulation testing. Patients having hematocrit values >55% require a special collection tube for coagulation studies. Please contact the laboratory at [phone] for redraw instructions. Performed By: #### P T, BMP, CBC, PTT #### [facility] [address] [place] [address] [facility] Prothrombin time (PT)Ordered By: Williams Shepherd on 03-26-2023 PT Coag (PPP) [Time] 26.6 s 9.0-12.9 [facility] Comment on above: A hematocrit value g reater than 55% may lead to inaccurate results in coagulation testing. Patients having hematocrit values >55% require a special collection tube for coagulation studies. Please contact the laboratory at [phone] for redraw instructions. RBC Auto (Bld) [#/Vol]Ordere d By: Williams Shepherd on 03-26-2023 RBC (Bld) [#/Vol] 4.27 10*6/uL 3.60-5.00 [facility] Serum or plasma anion gap de terminationOrdered By: Williams Shepherd on 03-26-2023 Anion gap [Moles/Vol] 13.0 mmol/L 6.0-15.0 [facility] Sodium [Moles/volume] in Ser um or PlasmaOrdered By: Williams Shepherd on 03-26-2023 Sodium [Moles/Vol] 142 mmol/L 136-145 [facility] Urea nitrogen [Mass/volume] in Serum or PlasmaOrdered By: Williams Shepherd on 03-26-2023 Urea nitrogen [Mass/Vol] 12 mg/dL 7-25 [facility] WBC Auto (Bld) [#/Vol]Ordere d By: Williams Shepherd on 03-26-2023 WBC (Bld) [#/Vol] 5.9 10*3/uL 3.8-11.6 [facility] Consultation Noteon 03-17-20 23 Consultation Note [id number] .00CD:127 [facility] Lab Reportson 02-12-2023 Lab Reports [id number] .00CD:127 [facility] RAD - MISCon 02-12-2023 RAD - MISC [id number] .00CD:127 [facility] RAD - CT Reporton 02-05-2023 RAD - CT Report [id number] .00CD:127 [facility] RAD - MISCon 02-05-2023 RAD - MISC [id number] .00CD:127 [facility] Ambulatory Visit Summaryon 0 02-03-2023 Ambulatory [...] these instructions at home: Medicines ? Take [id number]-ejcuwpg and prescription medicines only as told by [...] 16 month follow up w/ CT scan [facility] Staff Pt is here today for 16 month follow up w/ CT scan done @[facility] on 01/15/23. CT scan shows [...] SHEPHERD MD, URL [address] [place] [id number]- Additional Instructions: Patient Education Kidney Stones I, Fanny Bowen, personally scribed for Dr. Shepherd on 02/03/2023 12:04:03. . Documentation recorded by the scribe, Fanny Bowen, accurately reflects the services(s) I performed and decisions made by me. Authenticated by Dr. Shepherd on 02/03/2023 12:37:35. Portions of this record may have been created with voice recognition artificial intelligence software, specifically Vertro, EyeEm and or MeBeam. Substitutions may have occurred due to the inherent limitations of voice recognition and artificial intelligence software. Problem List/Past Medical History Ongoing Abdominal pain Anticoagulated Anxiety BMI 27.0-27.9,adult Depression Diabetes Former smoker Frequent urination Heart murmur History of uterine cancer Hx of care home use of blood thin (more content not included)... Normal [facility] Comment on above: Result Comment: Elec tronically Signed By: Williams SHEPHERD MD\.br\Date and Time Signed: 02/03/23 12:39 EDT\.br\Electronically Co-Signed By: Fanny Bowen\.br\Date and Time Co-Signed: 02/03/23 12:04 EDT PROTIMEon 12-02-2022 INR Coag (PPP) [Relative time] 3.62 {INR} Normal [facility] Comment on above: Performed By: #### P T #### [facility] [address] [place] [address] Dr. Tg Fierro INR GUIDELINES SEE BELOW Normal [facility] Comment on above: Result Comment: LAURENCE RED INR: 2.0 - 3.0 CONDITIONS NOT LISTED BELOW 2.5 - 3.5 FOR PROSTHETIC HEART VALVE REPLACEMENT 2.5 - 3.5 RECURRENT THROMBOSIS Performed By: #### P T #### [facility] [address] [place] [address] Dr. Tg Fierro PT Coag (PPP) [Time] 35.7 s Critically high 9.0-11.6 [facility] Comment on above: Performed By: #### P T #### [facility] [address] [place] [address] Dr. Tg Fierro PROTIMEon 11-11-2022 INR Coag (PPP) [Relative time] 1.90 {INR} Normal [facility] Comment on above: Performed By: #### P T #### [facility] [address] [place] [address] Dr. Tg Fierro INR GUIDELINES SEE BELOW Normal [facility] Comment on above: Result Comment: LAURENCE RED INR: 2.0 - 3.0 CONDITIONS NOT LISTED BELOW 2.5 - 3.5 FOR PROSTHETIC HEART VALVE REPLACEMENT 2.5 - 3.5 RECURRENT THROMBOSIS Performed By: #### P T #### [facility] [address] [place] [address] Dr. Tg Fierro PT Coag (PPP) [Time] 19.4 s Critically high 9.0-11.6 [facility] Comment on above: Performed By: #### P T #### [facility] [address] [place] [address] Dr. Tg Fierro CBC AUTO DIFFon 10-25-2022 BASO # 0.0 103/ul Normal 0.0-0.1 [facility] Comment on above: Performed By: #### P T #### [facility] [address] [place] [address] Dr. Tg Fierro Basophils/100 WBC (Bld) 0.5 % Normal 0.2-2.0 [facility] Comment on above: Performed By: #### P T #### [facility] [address] [place] [address] Dr. Tg Fierro EO # 0.2 103/ul Normal 0.0-0.7 [facility] Comment on above: Performed By: #### P T #### [facility] [address] [place] [address] Dr. Tg Fierro Eosinophils/100 WBC (Bld) 2.7 % Normal 0.9-7.0 [facility] Comment on above: Performed By: #### P T #### [facility] [address] [place] [address] Dr. Tg Fierro Erythrocyte distribution width (RBC) [Ratio] 13.4 % Normal 11.0-15.0 [facility] Comment on above: Performed By: #### P T #### [facility] [address] [place] [address] Dr. Tg Fierro Hematocrit (Bld) [Volume fraction] 40.7 % Normal 36.0-48.0 [facility] Comment on above: Performed By: #### P T #### [facility] [address] [place] [address] Dr. Tg Fierro Hemoglobin (Bld) [Mass/Vol] 13.2 g/dL Normal 12.0-16.0 [facility] Comment on above: Performed By: #### P T #### [facility] [address] [place] [address] Dr. Tg Fierro IG # 0.03 10e3/ul Normal 0.00-0.03 [facility] Comment on above: Performed By: #### P T #### [facility] [address] [place] [address] Dr. Tg Fierro IG % 0.5 % Normal 0.0-0.5 [facility] Comment on above: Performed By: #### P T #### [facility] [address] [place] [address] Dr. Tg Fierro LYMPH # 2.1 103/ul Normal 1.2-3.8 [facility] Comment on above: Performed By: #### P T #### [facility] [address] [place] [address] Dr. Tg Fierro Lymphocytes/100 WBC (Bld) 34.9 % Normal 20.5-60.0 [facility] Comment on above: Performed By: #### P T #### [facility] [address] [place] [address] Dr. Tg Fierro MANUAL DIFF REQ NO Normal [facility] Comment on above: Performed By: #### P T #### [facility] [address] [place] [address] Dr. Tg Fierro MCH (RBC) [Entitic mass] 30.5 pg Normal 26.7-34.0 [facility] Comment on above: Performed By: #### P T #### [facility] [address] [place] [address] Dr. Tg Fierro MCHC (RBC) [Mass/Vol] 32.4 g/dL Normal 29.9-35.2 [facility] Comment on above: Performed By: #### P T #### [facility] [address] [place] [address] Dr. Tg Fierro MCV (RBC) [Entitic vol] 94.0 fL Normal 81.0-99.0 [facility] Comment on above: Performed By: #### P T #### [facility] [address] [place] [address] Dr. Tg Fierro MONO # 0.4 103/ul Normal 0.3-0.8 [facility] Comment on above: Performed By: #### P T #### [facility] [address] [place] [address] Dr. Tg Fierro Monocytes/100 WBC (Bld) 7.1 % Normal 1.7-12.0 [facility] Comment on above: Performed By: #### P T #### [facility] [address] [place] [address] Dr. Tg Fierro NEUT # 3.2 103/ul Normal 1.4-6.5 [facility] Comment on above: Performed By: #### P T #### [facility] [address] [address] [address] Tg Fierro Neutrophils/100 WBC (Bld) 54.3 % Normal 43.0-75.0 [facility] Comment on above: Performed By: #### P T #### [facility] [address] [place] [address] Dr. Tg Fierro Platelet mean volume (Bld) [Entitic vol] 8.7 fL Critically low 9.5-13.5 [facility] Comment on above: Performed By: #### P T #### [facility] [address] [address] [address] Tg Fierro PLT 295 103/ul Normal 150-450 [facility] Comment on above: Performed By: #### P T #### [facility] [address] [place] [address] Dr. Tg Fierro RBC 4.33 106/ul Normal 4.20-5.40 [facility] Comment on above: Performed By: #### P T #### [facility] [address] [place] [address] Dr. Tg Fierro WBC 5.9 103/ul Normal 4.0-11.0 [facility] Comment on above: Performed By: #### P T #### [facility] [address] [place] [address] Dr. Tg Fierro PROF 14(COMP METB)on 023 Albumin [Mass/Vol] 3.8 g/dL Normal 3.4-5.0 [facility] Comment on above: Performed By: #### C MP #### [facility] [address] [place] [address] Dr. Tg Fierro Albumin/Globulin [Mass ratio] 1.2 {ratio} Normal [facility] Comment on above: Performed By: #### C MP #### [facility] [address] [place] [address] Dr. Tg Fierro ALP [Catalytic activity/Vol] 49 U/L Normal 46-116 [facility] Comment on above: Performed By: #### C MP #### [facility] [address] [address] [address] Tg Fierro ALT [Catalytic activity/Vol] 21 U/L Normal 14-59 [facility] Comment on above: Performed By: #### C MP #### [facility] [address] [address] [address] Tg Fierro Anion gap [Moles/Vol] 13.3 mmol/L Normal [facility] Comment on above: Performed By: #### C MP #### [facility] [address] [address] [address] Tg Fierro AST [Catalytic activity/Vol] 14 U/L Critically low 15-37 [facility] Comment on above: Performed By: #### C MP #### [facility] [address] [place] [address] Dr. Tg Fierro Bilirubin [Mass/Vol] 0.5 mg/dL Normal 0.2-1.0 [facility] Comment on above: Performed By: #### C MP #### [facility] [address] [place] [address] Dr. Tg Fierro Calcium [Mass/Vol] 9.5 mg/dL Normal 8.5-10.1 [facility] Comment on above: Performed By: #### C MP #### [facility] [address] [address] [address] Tg Fierro Chloride [Moles/Vol] 104 mmol/L Normal 98-107 [facility] Comment on above: Performed By: #### C MP #### [facility] [address] [address] [address] Tg Fierro CO2 [Moles/Vol] 29.3 mmol/L Normal 21.0-32.0 [facility] Comment on above: Performed By: #### C MP #### [facility] [address] [address] [address] Tg Fierro Creatinine [Mass/Vol] 0.93 mg/dL Normal 0.55-1.02 [facility] Comment on above: Performed By: #### C MP #### [facility] [address] [address] [address] Tg Fierro EGFR-AF MONEGASQUE >60 Normal >=60 [facility] Comment on above: Performed By: #### C MP #### [facility] [address] [address] [address] Tg Fierro EGFR-NON AF MONEGASQUE 59 mL/min/1.73m2 Critically low >=60 [facility] Comment on above: Performed By: #### C MP #### [facility] [address] [address] [address] Tg Fierro Globulin (S) [Mass/Vol] 3.2 g/dL Normal [facility] Comment on above: Performed By: #### C MP #### [facility] [address] [address] [address] Tg Fierro Glucose [Mass/Vol] 186 mg/dL Critically high 74-106 [facility] Comment on above: Performed By: #### C MP #### [facility] [address] [address] [address] Tg Fierro Potassium [Moles/Vol] 4.6 mmol/L Normal 3.5-5.1 [facility] Comment on above: Performed By: #### C MP #### [facility] [address] [place] [address] Dr. Tg Fierro Protein [Mass/Vol] 7.0 g/dL Normal 6.4-8.2 [facility] Comment on above: Performed By: #### C MP #### [facility] [address] [address] [address] Tg Fierro Sodium [Moles/Vol] 142 mmol/L Normal 136-145 [facility] Comment on above: Performed By: #### C MP #### [facility] [address] [place] [address] Dr. Tg Fierro Urea nitrogen [Mass/Vol] 15.0 mg/dL Normal 7.0-18.0 [facility] Comment on above: Performed By: #### C MP #### [facility] [address] [place] [address] Dr. Tg Fierro Urea nitrogen/Creatinine [Mass ratio] 16.1 mg/mg Normal [facility] Comment on above: Performed By: #### C MP #### [facility] [address] [place] [address] Dr. Tg Fierro SED RATE WESTERGRENon 2022 SED RATE 9 mm/hr Normal <=30 [facility] Comment on above: Performed By: #### C MP #### [facility] [address] [place] [address] Dr. Tg Fierro PROTIMEon 10-14-2022 INR Coag (PPP) [Relative time] 1.94 {INR} Normal [facility] Comment on above: Performed By: #### P T #### [facility] [address] [place] [address] Dr. Tg Fierro INR GUIDELINES SEE BELOW Normal [facility] Comment on above: Result Comment: LAURENCE RED INR: 2.0 - 3.0 CONDITIONS NOT LISTED BELOW 2.5 - 3.5 FOR PROSTHETIC HEART VALVE REPLACEMENT 2.5 - 3.5 RECURRENT THROMBOSIS Performed By: #### P T #### [facility] [address] [place] [address] Dr. Tg Fierro PT Coag (PPP) [Time] 19.8 s Critically high 9.0-11.6 [facility] Comment on above: Performed By: #### P T #### [facility] [address] [place] [address] Dr. Tg Fierro CBC AUTO DIFFon 09-24-2022 BASO # 0.1 103/ul Normal 0.0-0.1 [facility] Comment on above: Performed By: #### P T #### [facility] [address] [place] [address] Dr. Tg Fierro Basophils/100 WBC (Bld) 0.7 % Normal 0.2-2.0 [facility] Comment on above: Performed By: #### P T #### [facility] [address] [place] [address] Dr. Tg Fierro EO # 0.3 103/ul Normal 0.0-0.7 [facility] Comment on above: Performed By: #### P T #### [facility] [address] [address] [address] Tg Fierro Eosinophils/100 WBC (Bld) 3.6 % Normal 0.9-7.0 [facility] Comment on above: Performed By: #### P T #### [facility] [address] [place] [address] Dr. Tg Fierro Erythrocyte distribution width (RBC) [Ratio] 13.4 % Normal 11.0-15.0 [facility] Comment on above: Performed By: #### P T #### [facility] [address] [place] [address] Dr. Tg Fierro Hematocrit (Bld) [Volume fraction] 38.4 % Normal 36.0-48.0 [facility] Comment on above: Performed By: #### P T #### [facility] [address] [place] [address] Dr. Tg Fierro Hemoglobin (Bld) [Mass/Vol] 12.7 g/dL Normal 12.0-16.0 [facility] Comment on above: Performed By: #### P T #### [facility] [address] [place] [address] Dr. Tg Fierro IG # 0.05 10e3/ul Critically high 0.00-0.03 [facility] Comment on above: Performed By: #### P T #### [facility] [address] [place] [address] Dr. Tg Fierro IG % 0.7 % Critically high 0.0-0.5 [facility] Comment on above: Performed By: #### P T #### [facility] [address] [address] [address] Tg Fierro LYMPH # 2.6 103/ul Normal 1.2-3.8 [facility] Comment on above: Performed By: #### P T #### [facility] [address] [place] [address] Dr. Tg Fierro Lymphocytes/100 WBC (Bld) 34.2 % Normal 20.5-60.0 [facility] Comment on above: Performed By: #### P T #### [facility] [address] [place] [address] Dr. Tg Fierro MANUAL DIFF REQ NO Normal [facility] Comment on above: Performed By: #### P T #### [facility] [address] [place] [address] Dr. Tg Fierro MCH (RBC) [Entitic mass] 31.2 pg Normal 26.7-34.0 [facility] [facility] Comment on above: Performed By: #### P T #### [facility] [address] [place] [address] Dr. Tg Fierro MCHC (RBC) [Mass/Vol] 33.1 g/dL Normal 29.9-35.2 [facility] Comment on above: Performed By: #### P T #### [facility] [address] [place] [address] Dr. Tg Fierro MCV (RBC) [Entitic vol] 94.3 fL Normal 81.0-99.0 [facility] Comment on above: Performed By: #### P T #### [facility] [address] [place] [address] Dr. Tg Fierro MONO # 0.6 103/ul Normal 0.3-0.8 [facility] Comment on above: Performed By: #### P T #### [facility] [address] [place] [address] Dr. Tg Fierro Monocytes/100 WBC (Bld) 8.1 % Normal 1.7-12.0 [facility] Comment on above: Performed By: #### P T #### [facility] [address] [place] [address] Dr. Tg Fierro NEUT # 4.1 103/ul Normal 1.4-6.5 [facility] Comment on above: Performed By: #### P T #### [facility] [address] [place] [address] Dr. Tg Fierro Neutrophils/100 WBC (Bld) 52.7 % Normal 43.0-75.0 [facility] Comment on above: Performed By: #### P T #### [facility] [address] [place] [address] Dr. Tg Fierro Platelet mean volume (Bld) [Entitic vol] 8.7 fL Critically low 9.5-13.5 [facility] Comment on above: Performed By: #### P T #### [facility] [address] [place] [address] Dr. Tg Fierro PLT 278 103/ul Normal 150-450 [facility] Comment on above: Performed By: #### P T #### [facility] [address] [place] [address] Dr. Tg Fierro RBC 4.07 106/ul Critically low 4.20-5.40 [facility] Comment on above: Performed By: #### P T #### [facility] [address] [place] [address] Dr. Tg Fierro WBC 7.7 103/ul Normal 4.0-11.0 [facility] Comment on above: Performed By: #### P T #### [facility] [address] [place] [address] Dr. Tg Fierro PROF 14(COMP METB)on 023 Albumin [Mass/Vol] 3.9 g/dL Normal 3.4-5.0 [facility] Comment on above: Performed By: #### C MP #### [facility] [address] [place] [address] Dr. Tg Fierro Albumin/Globulin [Mass ratio] 1.4 {ratio} Normal [facility] Comment on above: Performed By: #### C MP #### [facility] [address] [place] [address] Dr. Tg Fierro ALP [Catalytic activity/Vol] 59 U/L Normal 46-116 [facility] Comment on above: Performed By: #### C MP #### [facility] [address] [place] [address] Dr. Tg Fierro ALT [Catalytic activity/Vol] 21 U/L Normal 14-59 [facility] Comment on above: Performed By: #### C MP #### [facility] [address] [address] [address] Tg Fierro Anion gap [Moles/Vol] 10.8 mmol/L Normal [facility] Comment on above: Performed By: #### C MP #### [facility] [address] [address] [address] Tg Fierro AST [Catalytic activity/Vol] 9 U/L Critically low 15-37 [facility] Comment on above: Performed By: #### C MP #### [facility] [address] [address] [address] Tg Fierro Bilirubin [Mass/Vol] 0.3 mg/dL Normal 0.2-1.0 [facility] Comment on above: Performed By: #### C MP #### [facility] [address] [address] [address] Tg Fierro Calcium [Mass/Vol] 9.1 mg/dL Normal 8.5-10.1 [facility] Comment on above: Performed By: #### C MP #### [facility] [address] [place] [address] Dr. Tg Fierro Chloride [Moles/Vol] 104 mmol/L Normal 98-107 [facility] Comment on above: Performed By: #### C MP #### [facility] [address] [address] [address] Tg Fierro CO2 [Moles/Vol] 28.3 mmol/L Normal 21.0-32.0 [facility] Comment on above: Performed By: #### C MP #### [facility] [address] [address] [address] Tg Fierro Creatinine [Mass/Vol] 0.86 mg/dL Normal 0.55-1.02 [facility] Comment on above: Performed By: #### C MP #### [facility] [address] [address] [address] Tg Fierro EGFR-AF MONEGASQUE >60 Normal >=60 [facility] Comment on above: Performed By: #### C MP #### [facility] [address] [address] [address] Tg Fierro EGFR-NON AF MONEGASQUE >60 Normal >=60 [facility] Comment on above: Performed By: #### C MP #### [facility] [address] [address] [address] Tg Fierro Globulin (S) [Mass/Vol] 2.7 g/dL Normal [facility] Comment on above: Performed By: #### C MP #### [facility] [address] [address] [address] Tg Fierro Glucose [Mass/Vol] 120 mg/dL Critically high 74-106 [facility] Comment on above: Performed By: #### C MP #### [facility] [address] [address] [address] Tg Fierro Potassium [Moles/Vol] 4.1 mmol/L Normal 3.5-5.1 [facility] Comment on above: Performed By: #### C MP #### [facility] [address] [place] [address] Dr. Tg Fierro Protein [Mass/Vol] 6.6 g/dL Normal 6.4-8.2 [facility] Comment on above: Performed By: #### C MP #### [facility] [address] [place] [address] Dr. Tg Fierro Sodium [Moles/Vol] 139 mmol/L Normal 136-145 [facility] Comment on above: Performed By: #### C MP #### [facility] [address] [address] [address] Tg Fierro Urea nitrogen [Mass/Vol] 13.0 mg/dL Normal 7.0-18.0 [facility] Comment on above: Performed By: #### C MP #### [facility] [address] [address] [address] Tg Fierro Urea nitrogen/Creatinine [Mass ratio] 15.1 mg/mg Normal [facility] Comment on above: Performed By: #### C MP #### [facility] [address] [place] [address] Dr. Tg Fierro PROTIMEon 09-24-2022 INR Coag (PPP) [Relative time] 1.35 {INR} Normal [facility] Comment on above: Performed By: #### P T #### [facility] [address] [place] [address] Dr. Tg Fierro INR GUIDELINES SEE BELOW Normal [facility] Comment on above: Result Comment: LAURENCE RED INR: 2.0 - 3.0 CONDITIONS NOT LISTED BELOW 2.5 - 3.5 FOR PROSTHETIC HEART VALVE REPLACEMENT 2.5 - 3.5 RECURRENT THROMBOSIS Performed By: #### P T #### [facility] [address] [place] [address] Dr. Tg Fierro PT Coag (PPP) [Time] 14.1 s Critically high 9.0-11.6 [facility] Comment on above: Performed By: #### P T #### [facility] [address] [place] [address] Dr. Tg Fierro SED RATE [facility] 2022 SED RATE 8 mm/hr Normal <=30 [facility] Comment on above: Performed By: #### C MP #### [facility] [address] [place] [address] Dr. Tg Fierro PROTIMEon 09-09-2022 INR Coag (PPP) [Relative time] 1.23 {INR} Normal [facility] Comment on above: Performed By: #### P T #### [facility] [address] [place] [address] Dr. Tg Fierro INR GUIDELINES SEE BELOW Normal [facility] Comment on above: Result Comment: LAURENCE RED INR: 2.0 - 3.0 CONDITIONS NOT LISTED BELOW 2.5 - 3.5 FOR PROSTHETIC HEART VALVE REPLACEMENT 2.5 - 3.5 RECURRENT THROMBOSIS Performed By: #### P T #### [facility] [address] [place] [address] Dr. Tg Fierro PT Coag (PPP) [Time] 12.9 s Critically high 9.0-11.6 [facility] Comment on above: Performed By: #### P T #### [facility] [address] [place] [address] Dr. Tg Fierro ECHOCARDIO M/2D COMPLETEon 0 09-02-2022 ECHOCARDIO M/2D COMPLETE Patient: WILDA SEN Exam Date: 09/02/2022 : 1945 Gender:F Ordering : DR JAYME PEREZ . Admission #: [id number] Family : Order #: [id number] CLICK HERE TO VIEW EXAM ECHOCARDIOGRAM REPORT [...] Dez Bender M.D. on 09/03/2022 at 17:25 [facility] GLYCOHEMOGLOBIN A1Con 2022 ADA RECOMMENDATION SEE BELOW Normal [facility] Comment on above: Result Comment: ADA RECOMMENDED LIMIT 4.0 - 6.0 ADA THERAPEUTIC TARGET < 7.0 ACTION SUGGESTED > 7.0 Performed By: #### A 1C #### [facility] [address] [place] [address] Dr. Tg Fierro Glucose [Mass/Vol] 148 mg/dL Normal [facility] Comment on above: Performed By: #### A 1C #### [facility] [address] [place] [address] Dr. Tg Fierro HbA1c (Bld) [Mass fraction] 6.8 % Critically high 4.5-6.2 [facility] Comment on above: Performed By: #### A 1C #### [facility] [address] [place] [address] Dr. Tg Fierro CBC AUTO DIFFon 08-05-2022 BASO # 0.1 103/ul Normal 0.0-0.1 [facility] Comment on above: Performed By: #### C BC #### [facility] [address] [place] [address] Dr. Tg Fierro Basophils/100 WBC (Bld) 0.8 % Normal 0.2-2.0 [facility] Comment on above: Performed By: #### C BC #### [facility] [address] [place] [address] Dr. Tg Fierro EO # 0.5 103/ul Normal 0.0-0.7 [facility] Comment on above: Performed By: #### C BC #### [facility] [address] [place] [address] Dr. Tg Fierro Eosinophils/100 WBC (Bld) 7.3 % Critically high 0.9-7.0 [facility] Comment on above: Performed By: #### C BC #### [facility] [address] [place] [address] Dr. Tg Fierro Erythrocyte distribution width (RBC) [Ratio] 13.4 % Normal 11.0-15.0 [facility] Comment on above: Performed By: #### C BC #### [facility] [address] [place] [address] Dr. Tg Fierro Hematocrit (Bld) [Volume fraction] 37.1 % Normal 36.0-48.0 [facility] Comment on above: Performed By: #### C BC #### [facility] [address] [place] [address] Dr. Tg Fierro Hemoglobin (Bld) [Mass/Vol] 12.9 g/dL Normal 12.0-16.0 [facility] Comment on above: Performed By: #### C BC #### [facility] [address] [place] [address] Dr. Tg Fierro IG # 0.03 10e3/ul Normal 0.00-0.03 [facility] Comment on above: Performed By: #### C BC #### [facility] [address] [place] [address] Dr. Tg Fierro IG % 0.5 % Normal 0.0-0.5 [facility] Comment on above: Performed By: #### C BC #### [facility] [address] [place] [address] Dr. Tg Fierro LYMPH # 2.3 103/ul Normal 1.2-3.8 [facility] Comment on above: Performed By: #### C BC #### [facility] [address] [place] [address] Dr. Tg Fierro Lymphocytes/100 WBC (Bld) 34.9 % Normal 20.5-60.0 [facility] Comment on above: Performed By: #### C BC #### [facility] [address] [place] [address] Dr. Tg iFerro MANUAL DIFF REQ NO Normal [facility] Comment on above: Performed By: #### C BC #### [facility] [address] [place] [address] Dr. Tg Fierro MCH (RBC) [Entitic mass] 31.0 pg Normal 26.7-34.0 [facility] Comment on above: Performed By: #### C BC #### [facility] [address] [place] [address] Dr. Tg Fierro MCHC (RBC) [Mass/Vol] 34.8 g/dL Normal 29.9-35.2 [facility] Comment on above: Performed By: #### C BC #### [facility] [address] [place] [address] Dr. Tg Fierro MCV (RBC) [Entitic vol] 89.2 fL Normal 81.0-99.0 [facility] Comment on above: Performed By: #### C BC #### [facility] [address] [address] [address] Tg Fierro MONO # 0.4 103/ul Normal 0.3-0.8 [facility] Comment on above: Performed By: #### C BC #### [facility] [address] [place] [address] Dr. Tg Fierro Monocytes/100 WBC (Bld) 6.1 % Normal 1.7-12.0 [facility] Comment on above: Performed By: #### C BC #### [facility] [address] [place] [address] Dr. Tg Fierro NEUT # 3.3 103/ul Normal 1.4-6.5 [facility] Comment on above: Performed By: #### C BC #### [facility] [address] [place] [address] Dr. Tg Fierro Neutrophils/100 WBC (Bld) 50.4 % Normal 43.0-75.0 [facility] Comment on above: Performed By: #### C BC #### [facility] [address] [place] [address] Dr. Tg Fierro Platelet mean volume (Bld) [Entitic vol] 8.6 fL Critically low 9.5-13.5 [facility] Comment on above: Performed By: #### C BC #### [facility] [address] [place] [address] Dr. Tg Fierro PLT 336 103/ul Normal 150-450 [facility] Comment on above: Performed By: #### C BC #### [facility] [address] [place] [address] Dr. Tg Fierro RBC 4.16 106/ul Critically low 4.20-5.[address] [facility] Comment on above: Performed By: #### C BC #### [facility] [address] [place] [address] Dr. Tg Fierro WBC 6.4 103/ul Normal 4.0-11.0 [facility] Comment on above: Performed By: #### C BC #### [facility] [address] [place] [address] Dr. Tg Fierro PROF 14(COMP METB)on 023 Albumin [Mass/Vol] 3.9 g/dL Normal 3.4-5.0 [facility] Comment on above: Performed By: #### P T #### [facility] [address] [place] [address] Dr. Tg Fierro Albumin/Globulin [Mass ratio] 1.3 {ratio} Normal [facility] Comment on above: Performed By: #### P T #### [facility] [address] [place] [address] Dr. Tg Fierro ALP [Catalytic activity/Vol] 60 U/L Normal 46-116 [facility] Comment on above: Performed By: #### P T #### [facility] [address] [place] [address] Dr. Tg Fierro ALT [Catalytic activity/Vol] 21 U/L Normal 14-59 [facility] Comment on above: Performed By: #### P T #### [facility] [address] [place] [address] Dr. Tg Fierro Anion gap [Moles/Vol] 15.2 mmol/L Normal [facility] Comment on above: Performed By: #### P T #### [facility] [address] [place] [address] Dr. Tg Fierro AST [Catalytic activity/Vol] 14 U/L Critically low 15-37 [facility] Comment on above: Performed By: #### P T #### [facility] [address] [place] [address] Dr. Tg Fierro Bilirubin [Mass/Vol] 0.4 mg/dL Normal 0.2-1.0 [facility] Comment on above: Performed By: #### P T #### [facility] [address] [address] [address] Tg Fierro Calcium [Mass/Vol] 9.3 mg/dL Normal 8.5-10.1 [facility] Comment on above: Performed By: #### P T #### [facility] [address] [address] [address] Tg Fierro Chloride [Moles/Vol] 102 mmol/L Normal 98-107 [facility] Comment on above: Performed By: #### P T #### [facility] [address] [address] [address] Tg Fierro CO2 [Moles/Vol] 26.8 mmol/L Normal 21.0-32.0 [facility] Comment on above: Performed By: #### P T #### [facility] [address] [address] [address] Tg Fierro Creatinine [Mass/Vol] 0.74 mg/dL Normal 0.55-1.02 [facility] Comment on above: Performed By: #### P T #### [facility] [address] [address] [address] Tg Fierro EGFR-AF MONEGASQUE >60 Normal >=60 [facility] Comment on above: Performed By: #### P T #### [facility] [address] [address] [address] Tg Fierro EGFR-NON AF MONEGASQUE >60 Normal >=60 [facility] Comment on above: Performed By: #### P T #### [facility] [address] [address] [address] Tg Fierro Globulin (S) [Mass/Vol] 3.1 g/dL Normal [facility] Comment on above: Performed By: #### P T #### [facility] [address] [address] [address] Tg Fierro Glucose [Mass/Vol] 148 mg/dL Critically high 74-106 [facility] Comment on above: Performed By: #### P T #### [facility] [address] [address] [address] Tg Fierro Potassium [Moles/Vol] 4.0 mmol/L Normal 3.5-5.1 [facility] Comment on above: Performed By: #### P T #### [facility] [address] [address] [address] Tg Fierro Protein [Mass/Vol] 7.0 g/dL Normal 6.4-8.2 [facility] Comment on above: Performed By: #### P T #### [facility] [address] [address] [address] Tg Fierro Sodium [Moles/Vol] 140 mmol/L Normal 136-145 [facility] Comment on above: Performed By: #### P T #### [facility] [address] [place] [address] Dr. Tg Fierro Urea nitrogen [Mass/Vol] 12.0 mg/dL Normal 7.0-18.0 [facility] Comment on above: Performed By: #### P T #### [facility] [address] [place] [address] Dr. Tg Fierro Urea nitrogen/Creatinine [Mass ratio] 16.2 mg/mg Normal [facility] Comment on above: Performed By: #### P T #### [facility] [address] [place] [address] Dr. Tg Fierro [facility] 30 mm/hr Normal <=30 [facility] Comment on above: Performed By: #### S EDR #### [facility] [address] [place] [address] Dr. Tg Fierro CBC AUTO DIFFon 04-15-2022 BASO # 0.1 103/ul Normal 0.0-0.1 [facility] Comment on above: Performed By: #### C BC #### [facility] [address] [place] [address] Dr. Tg Fierro Basophils/100 WBC (Bld) 0.6 % Normal 0.2-2.0 [facility] Comment on above: Performed By: #### C BC #### [facility] [address] [address] [address] Tg Fierro EO # 0.2 103/ul Normal 0.0-0.7 [facility] Comment on above: Performed By: #### C BC #### [facility] [address] [place] [address] Dr. Tg Fierro Eosinophils/100 WBC (Bld) 3.1 % Normal 0.9-7.0 [facility] Comment on above: Performed By: #### C BC #### [facility] [address] [place] [address] Dr. Tg Fierro Erythrocyte distribution width (RBC) [Ratio] 13.6 % Normal 11.0-15.0 [facility] Comment on above: Performed By: #### C BC #### [facility] [address] [place] [address] Dr. Tg Fierro Hematocrit (Bld) [Volume fraction] 42.3 % Normal 36.0-48.0 [facility] Comment on above: Performed By: #### C BC #### [facility] [address] [place] [address] Dr. Tg Fierro Hemoglobin (Bld) [Mass/Vol] 13.2 g/dL Normal 12.0-16.0 [facility] Comment on above: Performed By: #### C BC #### [facility] [address] [place] [address] Dr. Tg Fierro IG # 0.04 10e3/ul Critically high 0.00-0.03 [facility] Comment on above: Performed By: #### C BC #### [facility] [address] [place] [address] Dr. Tg Fierro IG % 0.5 % Normal 0.0-0.5 [facility] Comment on above: Performed By: #### C BC #### [facility] [address] [place] [address] Dr. Tg Fierro LYMPH # 2.5 103/ul Normal 1.2-3.8 [facility] Comment on above: Performed By: #### C BC #### [facility] [address] [place] [address] Dr. Tg Fierro Lymphocytes/100 WBC (Bld) 31.6 % Normal 20.5-60.0 [facility] Comment on above: Performed By: #### C BC #### [facility] [address] [place] [address] Dr. Tg Fierro MANUAL DIFF REQ NO Normal [facility] Comment on above: Performed By: #### C BC #### [facility] [address] [place] [address] Dr. Tg Fierro MCH (RBC) [Entitic mass] 30.3 pg Normal 26.7-34.0 [facility] Comment on above: Performed By: #### C BC #### [facility] [address] [place] [address] Dr. Tg Fierro MCHC (RBC) [Mass/Vol] 31.2 g/dL Normal 29.9-35.2 [facility] Comment on above: Performed By: #### C BC #### [facility] [address] [place] [address] Dr. Tg Fierro MCV (RBC) [Entitic vol] 97.0 fL Normal 81.0-99.0 [facility] Comment on above: Performed By: #### C BC #### [facility] [address] [place] [address] Dr. Tg Fierro MONO # 0.5 103/ul Normal 0.3-0.8 [facility] Comment on above: Performed By: #### C BC #### [facility] [address] [place] [address] Dr. Tg Fierro Monocytes/100 WBC (Bld) 6.3 % Normal 1.7-12.0 [facility] Comment on above: Performed By: #### C BC #### [facility] [address] [place] [address] Dr. Tg Fierro NEUT # 4.5 103/ul Normal 1.4-6.5 [facility] Comment on above: Performed By: #### C BC #### [facility] [address] [place] [address] Dr. Tg Fierro Neutrophils/100 WBC (Bld) 57.9 % Normal 43.0-75.0 [facility] Comment on above: Performed By: #### C BC #### [facility] [address] [place] [address] Dr. Tg Fierro Platelet mean volume (Bld) [Entitic vol] 8.6 fL Critically low 9.5-13.5 [facility] Comment on above: Performed By: #### C BC #### [facility] [address] [place] [address] Dr. Tg Fierro PLT 295 103/ul Normal 150-450 [facility] Comment on above: Performed By: #### C BC #### [facility] [address] [place] [address] Dr. Tg Fierro RBC 4.36 106/ul Normal 4.20-5.40 [facility] Comment on above: Performed By: #### C BC #### [facility] [address] [place] [address] Dr. Tg Fierro WBC 7.8 103/ul Normal 4.0-11.0 [facility] Comment on above: Performed By: #### C BC #### [facility] [address] [place] [address] Dr. Tg Fierro PROF 14(COMP METB)on 022 Albumin [Mass/Vol] 4.5 g/dL Normal 3.4-5.0 [facility] Comment on above: Performed By: #### C MP #### [facility] [address] [place] [address] Dr. Tg Fierro Albumin/Globulin [Mass ratio] 1.5 {ratio} Normal [facility] Comment on above: Performed By: #### C MP #### [facility] [address] [place] [address] Dr. Tg Fierro ALP [Catalytic activity/Vol] 62 U/L Normal 46-116 [facility] Comment on above: Performed By: #### C MP #### [facility] [address] [place] [address] Dr. Tg Fierro ALT [Catalytic activity/Vol] 25 U/L Normal 14-59 [facility] Comment on above: Performed By: #### C MP #### [facility] [address] [address] [address] Tg Fierro Anion gap [Moles/Vol] 10.6 mmol/L Normal [facility] Comment on above: Performed By: #### C MP #### [facility] [address] [address] [address] Tg Fierro AST [Catalytic activity/Vol] 12 U/L Critically low 15-37 [facility] Comment on above: Performed By: #### C MP #### [facility] [address] [address] [address] Tg Fierro Bilirubin [Mass/Vol] 0.5 mg/dL Normal 0.2-1.0 [facility] Comment on above: Performed By: #### C MP #### [facility] [address] [place] [address] Dr. Tg Fierro Calcium [Mass/Vol] 9.8 mg/dL Normal 8.5-10.1 [facility] Comment on above: Performed By: #### C MP #### [facility] [address] [place] [address] Dr. Tg Fierro Chloride [Moles/Vol] 102 mmol/L Normal 98-107 [facility] Comment on above: Performed By: #### C MP #### [facility] [address] [address] [address] Tg Fierro CO2 [Moles/Vol] 31.8 mmol/L Normal 21.0-32.0 The [facility] Comment on above: Performed By: #### C MP #### [facility] [address] [address] [address] Tg Fierro Creatinine [Mass/Vol] 0.88 mg/dL Normal 0.55-1.02 [facility] Comment on above: Performed By: #### C MP #### [facility] [address] [address] [address] Tg Fierro EGFR-AF MONEGASQUE >60 Normal >=60 [facility] Comment on above: Performed By: #### C MP #### [facility] [address] [address] [address] Tg Fierro EGFR-NON AF MONEGASQUE >60 Normal >=60 [facility] Comment on above: Performed By: #### C MP #### [facility] [address] [address] [address] Tg Fierro Globulin (S) [Mass/Vol] 3.1 g/dL Normal [facility] Comment on above: Performed By: #### C MP #### [facility] [address] [address] [address] Tg Fierro Glucose [Mass/Vol] 187 mg/dL Critically high 74-106 [facility] Comment on above: Performed By: #### C MP #### [facility] [address] [address] [address] Tg Fierro Potassium [Moles/Vol] 4.4 mmol/L Normal 3.5-5.1 [facility] Comment on above: Performed By: #### C MP #### [facility] [address] [address] [address] Tg Fierro Protein [Mass/Vol] 7.6 g/dL Normal 6.4-8.2 [facility] Comment on above: Performed By: #### C MP #### [facility] [address] [address] [address] Tg Fierro Sodium [Moles/Vol] 140 mmol/L Normal 136-145 [facility] Comment on above: Performed By: #### C MP #### [facility] [address] [address] [address] Tg Fierro Urea nitrogen [Mass/Vol] 14.0 mg/dL Normal 7.0-18.0 [facility] Comment on above: Performed By: #### C MP #### [facility] [address] [address] [address] Tg Fierro Urea nitrogen/Creatinine [Mass ratio] 15.9 mg/mg Normal [facility] Comment on above: Performed By: #### C MP #### [facility] [address] [place] [address] Dr. Tg Fierro SED RATE WESTERGRENon 2021 SED RATE 5 mm/hr Normal <=30 [facility] Comment on above: Performed By: #### S EDR #### [facility] [address] [place] [address] Dr. Tg Fierro CBC AUTO DIFFon 02-07-2022 BASO # 0.0 103/ul Normal 0.0-0.1 [facility] Comment on above: Performed By: #### P T #### [facility] [address] [place] [address] Dr. Tg Fierro Basophils/100 WBC (Bld) 0.6 % Normal 0.2-2.0 [facility] Comment on above: Performed By: #### P T #### [facility] [address] [place] [address] Dr. Tg Fierro EO # 0.4 103/ul Normal 0.0-0.7 [facility] Comment on above: Performed By: #### P T #### [facility] [address] [place] [address] Dr. Tg Fierro Eosinophils/100 WBC (Bld) 5.4 % Normal 0.9-7.0 [facility] Comment on above: Performed By: #### P T #### [facility] [address] [place] [address] Dr. Tg Fierro Erythrocyte distribution width (RBC) [Ratio] 13.5 % Normal 11.0-15.0 [facility] Comment on above: Performed By: #### P T #### [facility] [address] [place] [address] Dr. Tg Fierro Hematocrit (Bld) [Volume fraction] 39.4 % Normal 36.0-48.0 [facility] Comment on above: Performed By: #### P T #### [facility] [address] [place] [address] Dr. Tg Fierro Hemoglobin (Bld) [Mass/Vol] 12.8 g/dL Normal 12.0-16.0 [facility] Comment on above: Performed By: #### P T #### [facility] [address] [place] [address] Dr. Tg Fierro IG # 0.02 10e3/ul Normal 0.00-0.03 [facility] Comment on above: Performed By: #### P T #### [facility] [address] [place] [address] Dr. Tg Fierro IG % 0.3 % Normal 0.0-0.5 [facility] Comment on above: Performed By: #### P T #### [facility] [address] [place] [address] Dr. Tg Fierro LYMPH # 2.4 103/ul Normal 1.2-3.8 [facility] Comment on above: Performed By: #### P T #### [facility] [address] [place] [address] Dr. Tg Fierro Lymphocytes/100 WBC (Bld) 36.2 % Normal 20.5-60.0 [facility] Comment on above: Performed By: #### P T #### [facility] [address] [place] [address] Dr. Tg Fierro MANUAL DIFF REQ NO Normal [facility] Comment on above: Performed By: #### P T #### [facility] [address] [place] [address] Dr. Tg Fierro MCH (RBC) [Entitic mass] 31.0 pg Normal 26.7-34.0 [facility] Comment on above: Performed By: #### P T #### [facility] [address] [place] [address] Dr. Tg Fierro MCHC (RBC) [Mass/Vol] 32.5 g/dL Normal 29.9-35.2 [facility] Comment on above: Performed By: #### P T #### [facility] [address] [place] [address] Dr. Tg Fierro MCV (RBC) [Entitic vol] 95.4 fL Normal 81.0-99.0 [facility] Comment on above: Performed By: #### P T #### [facility] [address] [place] [address] Dr. Tg Fierro MONO # 0.5 103/ul Normal 0.3-0.8 [facility] Comment on above: Performed By: #### P T #### [facility] [address] [place] [address] Dr. Tg Fierro Monocytes/100 WBC (Bld) 8.0 % Normal 1.7-12.0 [facility] Comment on above: Performed By: #### P T #### [facility] [address] [place] [address] Dr. Tg Fierro NEUT # 3.3 103/ul Normal 1.4-6.5 [facility] Comment on above: Performed By: #### P T #### [facility] [address] [place] [address] Dr. Tg Fierro Neutrophils/100 WBC (Bld) 49.5 % Normal 43.0-75.0 [facility] Comment on above: Performed By: #### P T #### [facility] [address] [place] [address] Dr. Tg Fierro Platelet mean volume (Bld) [Entitic vol] 8.7 fL Critically low 9.5-13.5 [facility] Comment on above: Performed By: #### P T #### [facility] [address] [place] [address] Dr. Tg Fierro PLT 276 103/ul Normal 150-450 [facility] Comment on above: Performed By: #### P T #### [facility] [address] [place] [address] Dr. Tg Fierro RBC 4.13 106/ul Critically low 4.20-5.[address] [facility] Comment on above: Performed By: #### P T #### [facility] [address] [place] [address] Dr. Tg Fierro WBC 6.7 103/ul Normal 4.0-11.0 [facility] Comment on above: Performed By: #### P T #### [facility] [address] [place] [address] Dr. Tg Fierro GLYCOHEMOGLOBIN A1Con 2021 ADA RECOMMENDATION SEE BELOW Normal [facility] Comment on above: Result Comment: ADA RECOMMENDED LIMIT 4.0 - 6.0 ADA THERAPEUTIC TARGET < 7.0 ACTION SUGGESTED > 7.0 Performed By: #### A 1C #### [facility] [address] [place] [address] Dr. Tg Fierro Glucose [Mass/Vol] 151 mg/dL Normal [facility] Comment on above: Performed By: #### A 1C #### [facility] [address] [place] [address] Dr. Tg Fierro HbA1c (Bld) [Mass fraction] 6.9 % Critically high 4.5-6.2 [facility] Comment on above: Performed By: #### A 1C #### [facility] [address] [place] [address] Dr. Tg Fierro PROF 14(COMP METB)on 022 Albumin [Mass/Vol] 3.8 g/dL Normal 3.4-5.0 [facility] Comment on above: Performed By: #### P T #### [facility] [address] [place] [address] Dr. Tg Fierro Albumin/Globulin [Mass ratio] 1.3 {ratio} Normal [facility] Comment on above: Performed By: #### P T #### [facility] [address] [place] [address] Dr. Tg Fierro ALP [Catalytic activity/Vol] 43 U/L Critically low 46-116 [facility] Comment on above: Performed By: #### P T #### [facility] [address] [place] [address] Dr. Tg Fierro ALT [Catalytic activity/Vol] 19 U/L Normal 14-59 [facility] Comment on above: Performed By: #### P T #### [facility] [address] [place] [address] Dr. Tg Fierro Anion gap [Moles/Vol] 13.7 mmol/L Normal [facility] Comment on above: Performed By: #### P T #### [facility] [address] [address] [address] Tg Fierro AST [Catalytic activity/Vol] 11 U/L Critically low 15-37 [facility] Comment on above: Performed By: #### P T #### [facility] [address] [place] [address] Dr. Tg Fierro Bilirubin [Mass/Vol] 0.4 mg/dL Normal 0.2-1.0 [facility] Comment on above: Performed By: #### P T #### [facility] [address] [place] [address] Dr. Tg Fierro Calcium [Mass/Vol] 9.1 mg/dL Normal 8.5-10.1 [facility] Comment on above: Performed By: #### P T #### [facility] [address] [place] [address] Dr. Tg Fierro Chloride [Moles/Vol] 104 mmol/L Normal 98-107 [facility] Comment on above: Performed By: #### P T #### [facility] [address] [place] [address] Dr. Tg Fierro CO2 [Moles/Vol] 28.5 mmol/L Normal 21.0-32.0 [facility] Comment on above: Performed By: #### P T #### [facility] [address] [place] [address] Dr. Tg Fierro Creatinine [Mass/Vol] 0.77 mg/dL Normal 0.55-1.02 [facility] Comment on above: Performed By: #### P T #### [facility] [address] [place] [address] Dr. Tg Fierro EGFR-AF MONEGASQUE >60 Normal >=60 [facility] Comment on above: Performed By: #### P T #### [facility] [address] [place] [address] Dr. Tg Fierro EGFR-NON AF MONEGASQUE >60 Normal >=60 [facility] Comment on above: Performed By: #### P T #### [facility] [address] [place] [address] Dr. Tg Fierro Globulin (S) [Mass/Vol] 3.0 g/dL Normal [facility] Comment on above: Performed By: #### P T #### [facility] [address] [address] [address] Tg Fierro Glucose [Mass/Vol] 124 mg/dL Critically high 74-106 [facility] Comment on above: Performed By: #### P T #### [facility] [address] [address] [address] Tg Fierro Potassium [Moles/Vol] 4.2 mmol/L Normal 3.5-5.1 [facility] Comment on above: Performed By: #### P T #### [facility] [address] [place] [address] Dr. Tg Fierro Protein [Mass/Vol] 6.8 g/dL Normal 6.4-8.2 [facility] Comment on above: Performed By: #### P T #### [facility] [address] [address] [address] Tg Fierro Sodium [Moles/Vol] 142 mmol/L Normal 136-145 [facility] Comment on above: Performed By: #### P T #### [facility] [address] [place] [address] Dr. Tg Fierro Urea nitrogen [Mass/Vol] 12.0 mg/dL Normal 7.0-18.0 [facility] Comment on above: Performed By: #### P T #### [facility] [address] [place] [address] Dr. Tg Fierro Urea nitrogen/Creatinine [Mass ratio] 15.6 mg/mg Normal [facility] Comment on above: Performed By: #### P T #### [facility] [address] [address] [address] [facility] 8 mm/hr Normal <=30 [facility] Comment on above: Performed By: #### C MP #### [facility] [address] [place] [address] Dr. Tg Fierro COVID Quick Testingon 2020 Result Positive [facility] [employer] Other Vital Signs Date Time Vital Sign Value Performing Clinician Facility 10-14-2023 09:09-0400 Body temperature 98.6 [degF] Williams SHEPHERD [facility] 10-14-2023 09:09-0400 Diastolic blood pressure 61 mm[Hg] Williams SHEPHERD [facility] 10-14-2023 09:09-0400 Heart rate 80 /min Williams giddy [facility] 10-14-2023 09:09-0400 Respiratory rate 16 /min Williams SHEPHERD [facility] 10-14-2023 09:09-0400 Systolic blood pressure 115 mm[Hg] Williams SHEPHERD [facility] 08-13-2023 10:47-0500 Blood Pressure Location Renatopower SANTACRUZ [facility] 08-13-2023 10:47-0500 Diastolic blood pressure 62 mm[Hg] Renato SANTACRUZ [facility] 08-13-2023 10:47-0500 Heart rate 82 /min Renato SANTACRUZ [facility] 08-13-2023 10:47-0500 Respiratory rate 16 /min Renato SANTACRUZ [facility] 08-13-2023 10:47-0500 Systolic blood pressure 105 mm[Hg] Renato SANTACRUZ [facility] 08-07-2023 09:48-0500 Body height 160 cm Jayme Perez MD Work Phone: [facility] [employer] 08-07-2023 09:48-0500 Body mass index (BMI) [Ratio] 24.45 kg/m2 Jayme Perez MD Work Phone: [facility] 08-07-2023 09:48-0500 Body weight 62.6 kg Jayme Perez MD Work Phone: [facility] 08-07-2023 09:48-0500 Heart rate 57 /min Jayme Perez MD Work Phone: [facility] 08-07-2023 09:48-0500 SaO2% (BldA) [Mass fraction] 98 % Jayme Perez MD Work Phone: [facility] [employer] 07-25-2023 09:20-0500 Body height 160.02 cm Lou Glover Other [employer] Other 07-25-2023 09:20-0500 Body mass index (BMI) [Ratio] 23.91 kg/m2 Lou Glover Other [employer] Other 07-25-2023 09:20-0500 Body temperature 97.7 [degF] Lou Glover Other [employer] Other 07-25-2023 09:20-0500 Body weight 61.24 kg Lou Glover Other [employer] Other 07-25-2023 09:20-0500 Diastolic blood pressure 74 mm[Hg] Lou Glover Other [employer] Other 07-25-2023 09:20-0500 Respiratory rate 18 /min Lou Glover Other [employer] Other 07-25-2023 09:20-0500 SaO2% (BldA) [Mass fraction] 96 % Lou lGover Other [employer] Other 07-25-2023 09:20-0500 Systolic blood pressure 120 mm[Hg] Lou Glover Other [employer] Other 03-26-2023 13:15-0400 Body height 160.02 cm MD Jayme Perez Work Phone: [facility] 03-26-2023 13:15-0400 Body temperature 98.2 [degF] MD Jayme Perez Work Phone: [facility] 03-26-2023 13:15-0400 Body weight 66 kg MD Jayme Perez Work Phone: [facility] 03-26-2023 13:15-0400 Diastolic blood pressure 71 mm[Hg] MD Jayme Perez Work Phone: [facility] 03-26-2023 13:15-0400 Heart rate 87 /min MD Jayme Perez Work Phone: [facility] 03-26-2023 13:15-0400 Respiratory rate 16 /min MD Jayme Perez Work Phone: [facility] 03-26-2023 13:15-0400 SaO2% (BldA) [Mass fraction] 97 % MD Jayme Perez Work Phone: [facility] 03-26-2023 13:15-0400 Systolic blood pressure 117 mm[Hg] MD Jayme Perez Work Phone: [facility] 05-21-2021 13:15-0500 Body height 160.02 cm Astrid Baker Other [employer] Other 05-21-2021 13:15-0500 Body mass index (BMI) [Ratio] 23.91 kg/m2 Astrid Baker Other [employer] Other 05-21-2021 13:15-0500 Body temperature 97.3 [degF] Astrid Baker Other [employer] Other 05-21-2021 13:15-0500 Body weight 61.24 kg Astrid Baker Other [employer] Other 05-21-2021 13:15-0500 SaO2% (BldA) [Mass fraction] 94 % Astrid Baker Other [employer] Other Encounters Encounter Date Encounter Type Care Provider Facility Start: 12-31-2023 End: 12-31-2023 ambulatory FELICIA FARMER Not Available Start: 10-14-2023 End: 10-15-2023 ambulatory Williams SHEPHERD Facility:[facility] Start: 10-14-2023 End: 10-14-2023 Patient encounter procedure Williams SHEPHERD [facility] Start: 09-01-2023 End: 09-01-2023 ambulatory FELICIA FARMER Not Available Start: 08-20-2023 [facility]inis[facility] Result Encounter Generic External Data Provider [facility] External Department Unsolicited Start: 08-20-2023 Clinisync Result Encounter Generic External Data Provider [facility] External Department Unsolicited Start: 08-14-2023 End: 08-15-2023 ambulatory Renato SANTACRUZ Facility:[id number] Start: 08-13-2023 End: 08-14-2023 ambulatory Renato SANTACRUZ Facility:[facility] Start: 08-13-2023 End: 08-13-2023 Patient encounter procedure Renato SANTACRUZ [facility] Start: 08-07-2023 End: 08-07-2023 Office outpatient visit 25 minutes Jayme Perez MD Work Phone: [facility] Comment on above: Chronic diastolic he art failure (CMS/HCC) (Primary Dx); 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 (CMS/HCC); Type 2 diabetes mellitus with stage 3a chronic kidney disease, without long-term current use of insulin (HCC) (CMS/HCC); Stage 3a chronic kidney disease (HCC) (CMS/HCC); Microalbuminuria; Former smoker; 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, adult; senior care current use of anticoagulant; Psoriatic arthropathy (CMS/HCC); Gastroesophageal reflux disease without esophagitis Start: 08-07-2023 End: 08-07-2023 ambulatory JAYME PEREZ Not Available Start: 07-30-2023 End: 07-30-2023 ambulatory JAYME PEREZ Not Available Start: 07-25-2023 End: 07-25-2023 ambulatory Lou Glover Other [employer] Other Start: 07-25-2023 Office outpatient vi sit 25 minutes Lou Glover [facility] Start: 07-10-2023 End: 07-10-2023 ambulatory FELICIAZULEIMA FARMER Not Available Start: 07-02-2023 End: 07-02-2023 ambulatory FELICIA D JOSE MIGUELER Not Available Start: 06-25-2023 End: 06-25-2023 ambulatory FELICIA D ZAHLER Not Available Start: 06-18-2023 End: 06-18-2023 ambulatory FELICIA D ZAHLER Not Available Start: 04-07-2023 End: 04-07-2023 ambulatory Williams Shepherd Facility:[facility] Start: 04-07-2023 End: 04-07-2023 Departed Referred MD Jayme Perez Work Phone: [facility] [place] Start: 04-07-2023 End: 04-08-2023 ambulatory MD Jayme Perez Work Phone: [facility] Work Phone: Start: 03-26-2023 End: 03-26-2023 ambulatory Williams Shepherd Facility:[facility] Start: 03-26-2023 End: 03-26-2023 Patient encounter procedure MD Jayme Perez Work Phone: [facility] Work Phone: Start: 03-20-2023 End: 03-21-2023 ambulatory Williams SHEPHERD Facility:[facility] Start: 03-20-2023 End: 03-20-2023 Lab Drop off Williams SHEPHERD [facility] Start: 03-20-2023 End: 03-20-2023 Patient encounter procedure Williams SHEPHERD [facility] Start: 02-03-2023 End: 02-04-2023 ambulatory [...] 05-21-2021 End: 05-21-2021 ambulatory Astrid Olivia Other [place] [employer] Other Start: 05-21-2021 Office outpatient vi sit [...] SHEPHERD Abdominal hysterectomy Bhavesh SANTACRUZ Appendectomy Renato SANTCARUZ Extraction of cataract Bhavesh SANTACRUZ Partial lobectomy of lung Pa gamal SANTACRUZ Tonsillectomy Renato SANTACRUZ Plan of Treatment Date Care Activity Detail Author Start: 05-19-2025 Glaucoma screening Diabetes: Retinopathy Screening [facility] Start: 07-12-2024 ambulatory Ambulatory Facility:[facility] Start: 05-22-2024 Medicare Annual Wellness (AWV) Medicare Annual Wellness (AWV) [facility] Start: 09-01-2023 End: 09-01-2023 Patient encounter procedure 09/01/2023 10:30 AM EST Office Visit [facility] [address] [place] [address] Felicia Farmer DO [address] [place] [address] [facility] Start: 05-06-2023 Hemoglobin A1c measurement Diabetes: Hemoglobin A1C [facility] Start: 04-07-2023 Abdomen endoscopy OR Cysto/Retro/Stent/Stone/ Holmium Laser (Right) [facility] Start: 03-14-2023 Influenza vaccination Influenza Vaccine (#1) [facility] Start: 1951 Pneumococcal Vaccine: 65+ Years (1 - PCV) Pneumococcal Vaccine: 65+ Years (1 - PCV) [facility] Immunizations Immunization Date Immunization Notes Care Provider Fa cility NEGATED: Highlighted row has not occurred!08-13-2023 influenza virus vaccine, unspecified formulation Renato SANTACRUZ [facility] NEGATED: Highlighted row has not occurred!08-13-2023 SARS-CoV-2 mRNA (tozinameran 5y-11y) vaccine Renato SANTACRUZ [facility] NEGATED: Highlighted row has not occurred!09-21-2019 influenza virus vaccine, live, attenuated, for intranasal use Williams giddy [facility] NEGATED: Highlighted row has not occurred!08-20-2019 influenza virus vaccine, live, attenuated, for intranasal use Williams giddy [facility] Payers Date Payer Category Payer Self-pay [id number] 2022 Unknown [employer] [id number] 2022-Present [address] [address] [place] [address] [id number] 2022 Medicare [id number] 2002 Medicare MEDICARE MEDICAR E PART B [id number] 2002-[place] [address] [place] [address] Medicare [id number] 1959 Medicare [id number] 1959 Unknown [id number] 1945 Unknown [id number] 2.16.840.1.763760.3.579.2.59 3 1945 Unknown [id number] 2.16.840.1.113718.3.579.2.59 3 1945 Unknown [id number] 2.16.840.1.682797.3.579.2.59 3 1946 Unknown [id number] 2.16.840.1.693916.3.579.2.59 3 1946 Unknown [id number] 2.16.840.1.841065.3.579.2.59 3 1946 Unknown [id number] 2.16.840.1.746806.3.579.2.59 3 1946 Unknown [id number] 2.16.840.1.359428.3.579.2.59 3 1946 Unknown [id number] 2.16.840.1.505644.3.579.2.59 3 1946 Unknown [id number] 2.16.840.1.292733.3.579.2.59 3 1946 Unknown [id number] 2.16.840.1.169995.3.579.2.59 3 1946 Unknown [id number] 2.16.840.1.556420.3.579.2.59 3 1946 Unknown [id number] 2.16.840.1.770655.3.579.2.59 3 1946 Unknown [id number] 2.16.840.1.405990.3.579.2.59 3 1946 Unknown [id number] 2.16.840.1.272532.3.579.2.72 7 1946 Unknown [id number] 2.16.840.1.071111.3.579.2.72 7 1946 Unknown [id number] 2.16.840.1.862602.3.579.2.72 7 1946 Unknown [id number] 2.16.840.1.127094.3.579.2.72 7 1946 Unknown [id number] 2.16.840.1.500852.3.579.2.72 7 1946 Unknown [id number] 2.16.840.1.375269.3.579.2.72 7 1946 Unknown [id number] 2.16.840.1.283283.3.579.2.72 7 1946 Unknown [id number] 2.16.840.1.338990.3.579.2.12 59 1946 Unknown [id number] 2.16.840.1.824999.3.579.2.12 59 1946 Unknown [id number] 2.16.840.1.895376.3.579.2.12 59 1946 Unknown [id number] 2.16.840.1.914024.3.579.2.12 59 1946 Unknown [id number] 2.16.840.1.232936.3.579.2.12 59 1946 Unknown [id number] 2.16.840.1.001582.3.579.2.12 59 1946 Unknown [id number] 2.16.840.1.579063.3.579.2.12 59 1946 Unknown [id number] 2.16.840.1.034850.3.579.2.12 59 Unknown [id number] 2.16.840.1.733552.3.579.2.53 1 Unknown [id number] 2.16.840.1.640962.3.579.2.53 1 Social History Date Type Detail Facility Sex Assigned At [facility] Other Start: 02-03-2023 End: 10-14-2023 Tobacco smoking status Ex-smoker (finding) [facility] Tobacco smoking status Never [facility] Start: 12-11-2022 End: 05-22-2023 Sex Assigned At Female [facility] Start: 1945 Sex Assigned At Female [facility] End: 07-14-1986 History of tobacco use Current smoker [facility] End: 07-14-1986 History of tobacco use Cigarette Smoker [facility] Start: 08-07-2023 Tobacco use and exposure Smokeless tobacco non-user [facility] Start: 08-07-2023 End: 08-14-2023 Alcohol intake Ex-drinker (finding) [facility] Start: 12-11-2022 End: 05-22-2023 History of [address] function [facility] Within the last year , have you been afraid of your partner or ex-partner? No [facility] Are you now , , , , never or living with a partner? [facility] How often to you hav [...] got money to buy more. Never true [facility] Start: 01-24-2023 Education [facility] Start: 01-06-2023 Gender identity Identifies as female gender (finding) [facility] Functional Status Date Assessment Result Facility 10-14-2023 Functional Status N/A [facility] 08-13-2023 Functional Status N/A [facility] Clinical Notes 02-21-2022 to 10-14-2023 Jayme Perez [...] include: ?8 oz (237 mL) of milk, lzqrlng-bmslsbqxxdya-czhqy milk, and calcium-fortifiedfruit juice. Calcium-fortified means that [...] ?Spinach (cooked), rhubarb, beets, sweet potatoes, and [place] chard. ?Peanuts. ?Potato chips, canadian fries, and baked potatoes with skin on. ?Nuts and nut products. ?Chocolate. If you regularly take a diuretic medicine, make sure to eat at least 1 or 2 servings of fruits or vegetables that are high in potassium each day. These include: ?Avocado. ?Banana. ?[place], prune, carrot, or tomato juice. ?Baked potato. [...] magnesium, fish oil, or vitamin B6. Take infw-bkj-baddtjy and prescription medicines only as told by [...] Casseroles. Pizza. Lasagna. Frozen meals. Potato chips. Bolivian fries. The items listed above may not [...] provider. Document Revised: 10/10/2022 Document Reviewed: 10/10/2022 [facility] Patient Education 2022 Let it Wave. Follow Up Care 08/13/2023 10:19:44 With:CORA AGUIAR, Williams Venegas, URL Address: [address] [place] [address] [address] [place] [id number]- When: Unknown [facility] 08-13-2023 Hospital Discharge instructions Patient [...] including vitamins, herbs, eye drops, creams, and mixq-zcu-cyiuqzg medicines. Any problems you or family members [...] provider tells you to take them. ?Taking tqew-mnc-sblvqul medicines, vitamins, herbs, and supplements. Eating and [...] provider. Document Revised: 11/06/2022 Document Reviewed: 03/04/2022 [facility] Patient Education 2022 Let it Wave. Follow Up Care 08/12/2023 14:37:00 With:ANGELITO AGUIAR, Renato Arzola, URL Address: [facility] [address] , [place] [address]- [phone] When: Unknown Comments:sched ureteroscopyf/u w/ [facility] scheduled 10/14/23 [facility] [place] 08-07-2023 History of Present illness Narrative Patient [...] 36.1 (H) 9.0 - 11.6 sec Final [facility] INR 08/05/2023 3.67 Final Comment: DESIRED [...] 0.55 - 1.02 mg/dL Final [facility] EGFR-AF MONEGASQUE 07/22/2023 >60 >=60 Final [facility] EGFR-NON AF MONEGASQUE 07/22/2023 55 (L) >=60 Final BUN CREATININE [...] without long-term current use of insulin (HCC) ([facility]) - metFORMIN (Glucophage) 1000 MG tablet; Take [...] treats. Stage 3a chronic kidney disease (HCC) ([facility]) New, Chronic problem, unstable, progressing, defining the [...] cardiovascular disease. Former smoker 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, adult senior care current use of anticoagulant Chronic problem, that is monitored monthly, and be seen in the monthly INR results. documented in this encounter [facility] 07-25-2023 Evaluation note Encounter Date Diagnosis Assessment [...] care as directed rx of steroid and [place], cool mist humidification. May use Tylenol as directed. Immediate eval for signs of respiratory distress, difficulty breathing poor PO intake, signs of dehydration, fever, or other concerning symptoms. Otherwise, follow up with PCP in 2-3 days. Patient verbalizes understanding and is agreeable to treatment plan. Patient sent home in stable condition. [place] [employer] Other 08-11-2022 NotePROCEDURE: XR FOOT LT MIN 3 VIEWS COMPARISON: None. HISTORY: Pain in left foot FINDINGS: BONES:No acute fracture or dislocation. Mild enthesopathic spurring of the calcaneus. SOFT TISSUES:Negative. No visible soft tissue swelling. EFFUSION:None visible. OTHER: Negative. IMPRESSION: Mild enthesopathic spurring of the calcaneus Electronically authenticated by: BLANCA ZAVALA Date: 2022-02-21 [facility]ments Appointment Date:07/12/2024 10:45:00 AM Scheduled Provider:Williams SHEPHERD MD Location:[facility] Appointment Type:URO Office Visit [facility] Evaluation + Plan note Future Appointments Appointment Date:07/12/2024 10:45:00 AM Scheduled Provider:Williams SHEPHERD MD Location:[facility] Appointment Type:URO Office Visit Diagnostic Tests Pending * Calculi Analysis [facility] Future App[facility]ments Appointment Date:10/14/2023 09:15:00 AM Scheduled Provider:Williams SHEPHERD MD Location:[facility] Appointment Type:URO Office Visit Appointment Date:07/12/2024 10:45:00 AM Scheduled Provider:Williams SHEPHERD MD [facility] App[facility] Type:URO Office Visit [facility] evaluation noteNort [employer] Other evalujzrlz noteNo assessment information available [facility] Work Phone: Evaluation note* Diagnosis Chronic diastolic heart failure ([facility]/HCC)- Primary Chronic diastolic heart failure 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 ([facility]/HCC) Atrial fibrillation Type 2 diabetes mellitus with stage 3a chronic kidney disease, without long-term current use of insulin (HCC) ([facility]/HCC) Stage 3a chronic kidney disease (HCC) ([facility]/HCC) Microalbuminuria Proteinuria Former smoker Personal history of tobacco use, presenting hazards to health 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, adult senior care current use of anticoagulant Psoriatic arthropathy ([facility]) Psoriatic arthropathy Gastroesophageal reflux disease without esophagitis Esophageal reflux documented in this encounter [facility] N[facility] - [facility] [employer] Other History general Narrative - Reported* Type Description Date Medical History Arthritis Medical History diabetes mallitus Surgical History cataract surgery [facility] [employer] Other Hospital course Narrative No data available for this section [facility] Hospital Discharge instructions No data available for this section [facility] [place] note No data available for this section [facility] [place] Summary Purpose Family History No Family History [...] and content) DATE CREATED AUTHOR 12/20/2022 [facility] [place] [facility] DATE CREATED AUTHOR AUTHOR'S ORGANIZ ATION 06/09/2023 [facility] DATE CREATED AUTHOR AUTHOR'S ORGANIZ ATION 10/15/2023 [facility] DATE CREATED AUTHOR AUTHOR'S ORGANIZ ATION 01/02/2024 [facility] EPIC Patient Care team informatio n (unrecognized section and content) Team Status: Active Member Role Status Dates Jayme Perez MD Primary Care Provider Active Team Status: Inactive Member Role Status Dates Jayme Perez MD Primary Care Provider Active Williams Shepherd MD Attending Provider Active Recovery Coordinator Relationship Specialty Start Date End Date Jayme Perez MD [address] [facility] [place] [address] (Fax) PCP - General Family Medicine 11/25/22 Jayme Perez MD [address] [facility] [place] [phone] (Fax) PCP - ACO Reach 12/05/22 Recovery Coordinator Relationship Specialty Start Date End Date Jayme Perez MD [address] [facility] [place] [address] (Fax) PCP - General Family Medicine 11/25/22 Jayme Perez MD [address] [place] [address] (Fax) PCP - ACO Reach 12/05/22 Goals [...] BE BASED ON THE PRIMARY CLINICAL RECORDS. [employer] provides no warranty or guarantee of the accuracy or completeness of information in this document.
[2024-02-13 11:54] LABS: Prothrombin Time 25.9 sec (9.0-11.6)
== END 2024-02-13 11:20 | disposition home or self-care (01) ==
LOC: LAB 11:20
PROVIDERS: PCP Family Medicine; Visit Provider Family Medicine
DX: Z79.01 Long term (current) use of anticoagulants (principal); I48.0 Paroxysmal atrial fibrillation; Z51.81 Encounter for therapeutic drug level monitoring
CPT/HCPCS: 36415; 85610

== ENCOUNTER 2024-03-17 09:23 | Outpatient (OUT) | payer MEDICARE, SELFPAY ==
--- OUTSIDE RECORDS SUMMARY | 2024-03-17 09:44 | XMS_ITS | CCD ---
Author Organization [facility] Care Team Providers Care Director Of National Sales Name Role Phone Astrid Baker Unavailable CAYETANO, [...] anaphylaxis, Unknown (qualifier value) [facility] (1 source) sulfaSALAzine Drug Allergy rash [facility] Other (1 source) Ciprofloxacin Drug Allergy 03-30-20 13 [facility] Repository (2 sources) Ketorolac; Translations: [Toradol] Drug Allergy 03-30-20 13 [facility] Rep[facility] (2 sources) metroNIDAZOLE; Translations: [MetroGel] Drug Allergy 03-30-20 13 [facility] (1 source) NSAIDs Drug allergy (disorder) 03-30-20 13 [facility] (2 sources) pioglitazone; Translations: [Actos] Drug Allergy 03-30-20 13 [facility] (1 source) Sulfonamides (Antibiotic) Drug allergy (disorder) 03-30-20 13 [facility] (10 sources) Ketorolac; Translations: [ketorolac] Drug Allergy 03-26-20 Unknown (qualifier value), Nausea (finding) [facility] Comment on above: Severe (10 sources) Latex; Translations: [latex] Drug allergy 01-07-20 Blister of skin AND/OR mucosa (finding) [facility] (8 sources) Non-steroidal anti-inflammatory agent; Translations: [NSAIDs] Drug allergy 02-19-20 22 Unknown (qualifier value) [facility] (11 sources) pioglitazone; Translations: [pioglitazone] Drug Allergy 01-07-20 23 Unknown (qualifier value) [facility] (5 sources) Sulfonamides (Antibiotic); Translations: [sulfa drugs] Drug allergy Unknown (qualifier value) [facility] (7 sources) metroNIDAZOLE; Translations: [metronidazole] Drug Allergy 02-19-20 22 Redness of Skin [facility] (2 sources) Sulfonamides (Antibiotic); Translations: [Sulfa (Sulfonamide Antibiotics)] Allergy to substance 03-26-20 Rash [facility] (2 sources) NSAIDS (Non-Steroidal Anti-Inflamma; Translations: [NSAIDS (Non-Steroidal Anti-Inflamma] Allergy to substance 03-26-20 Anaphylaxis [facility] (1 source) Ciprofloxacin Drug Allergy 03-26-20 23 [facility] Repository (1 source) Ketorolac Drug Allergy 03-26-20 [facility] (1 source) pioglitazone Drug Allergy 03-26-20 [facility] Repository (1 source) Non-steroidal anti-inflammatory agent Drug allergy rash [facility] Other (4 sources) Substance with sulfonamide structure and antibacterial mechanism of action (substance) Drug allergy 02-19-20 rash [facility] Other (3 sources) Ketorolac Allergy to substance 01-07-20 Nausea Only [facility] (3 sources) Hydrocodone Bit-Homatrop Mbr Propensity to adverse reactions 08-07-19 Dizziness [facility] (3 sources) Medical Adhesive Remover Drug Allergy 02-19-20 [facility] Medications Current Medications Medication Drug Class(es) [...] Refill(s) 0 Start Date: 08/13/23 Status: Ordered [id number] 200 actuat albuterol 0.09 mg/actuat metered dose [...] Date: 09/19/20 Status: Ordered Cyanocobalamin-Liver Extract (Vitamin R10-Rormp) Tablet (1 source) Start: 03-26-2023 take 1 tablet by mouth once daily Cyanocobalamin-Liver Extract (Vitamin F40-Zqfbf) Tablet Active 1 TAB PO every day at noon March 25, 2023 11:00pm dextromethorphan hydrobromide 1.5 mg/ml / pyrilamine maleate 1.5 mg/ml oral solution (1 source) Uncompetitive C-fbyvle-V-aspar muñoz Receptor Antagonist, Sigma-1 Agonist Start: 07-25-2023 take 10 mL by mouth every eight hours [place] DM 7.5-7.5 MG/5ML 10 mL Orally every 8 hours for 5 days Jul, Active esomeprazole 20 mg oral tablet (8 sources) Proton Pump Inhibitor Start: 08-17-2019 Nexium 20 mg, Oral, As Directed, Refills(s) 0 Start Date: 08/17/19 Status: Ordered Start: 08-17-2019 Nexium Oral, D aily, Refills(s) 0 Start Date: 08/17/19 Status: Ordered take 1 capsule by [facility] once daily esomeprazole (NexIUM) 20 MG [...] Start: 08-12-2023 take 1 capsule by [facility] every twenty-four hours in the morning [...] 12-12-2022 12-12-2022 Chronic Other aftercare (1 source) half-way (current) use of anticoagulants; Translations: [SENIOR LIVING CURRNT USE ANTICOAGULANTS] Onset: 12-11-2022 Episodic Other aftercare (5 sources) Encounter for therapeutic drug level monitoring; Translations: [ENC THERAPEUTC DRUG LEVL MONITORING] Onset: 10-18-2022 Episodic Other aftercare (1 source) Other long term acute care registered nurse (current) drug therapy; Translations: [OTH SENIOR LIVING CURRENT DRUG THERAPY] Onset: 10-31-2022 Episodic Other aftercare (7 sources) Long-term current use of anticoagulant; Translations: [half-way (current) use of anticoagulants] Onset: 07-21-2023 Episodic [...] 12-12-2022 12-12-2022 Episodic Other aftercare (1 source) half-way (current) use of oral hypoglycemic drugs; Translations: [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 ? Peanuts. ? Potato chips, tajik fries, and baked potatoes with skin on. ? Nuts and nut products. ? Chocolate. ? If you regularly take a diuretic medicine, make sure to eat at least 1 or 2 servings of fruits or vegetables that are high in potassium each day. These include: ? Avocado. ? Banana. ? [place], prune, carrot, or tomato juice. ? Baked [...] fish oil, or vitamin B6. ? Take fghf-sol-nnbbkxr and prescription medicines only as told by your health care provider. These include supplements. What foods sh (more content not included)... Normal [facility]rology Office/Clinic Noteon 10-14-2023 Urology Office/Clinic Note Chief Complaint Pt is here for 3 month w/ met w/u & KUB HPI Staff 6 month follow up w/KUB Pt canceled Cysto/R retro/possible: ureteroscopy, laser, basket, stent placement 04/07/23 due to passing stones Pt was then seen at [facility] on 08/12/23 due to abdominal pain, [...] with voice recognition artificial intelligence software, specifically [employer], [employer] and or [employer]. Substitutions may have occurred due to the inherent limitations of voice recognition and artificial intelligence software. 1. Ureteral stone with hydronephrosis (N13.2: Hydronephrosis with renal and ureteral calculous obstruction) [facility] ER visit 08/12/23 due to R [...] bilateral nephrolithiasis. -See #1 3. Anticoagulated (Z79.01: half-way (current) use of anticoagulants) Warfarin for A-fib. [...] Information CORA AGUIAR, Williams P, URL [address] [place] [id number]- Additional Instructions: 06/2024 with [facility] Patient Education Dietary Guidelines to Help Prevent Kidney Stones I, Charisse Rutherford, personally scribed for Dr. Shepherd on 10/14/2023 09:33:56. Electronically signed by (more content not included)... [facility] Comment on above: Result Comment: Elec tronically Signed By: Williams SHEPHERD MD\.br\Date and Time Signed: 10/14/23 09:38 EDT\.br\Electronically Co-Signed By: Charisse Rutherford\.br\Date and Time Co-Signed: 10/14/23 09:34 EDT RAD - MISCon 10-10-2023 RAD - MISC [id number]#1 .00TIFF [facility] Lab Reportson 08-27-2023 Lab Reports [id number]#1 .00TIFF [facility] Lab Reportson 08-25-2023 Lab Reports [id number]#1 .00TIFF [facility] Lab Reports [id number] .00TIFF [facility] Lab Reportson 08-22-2023 Lab Reports [id number]#1 .00TIFF [facility] Lab Reportson 08-21-2023 Lab Reports [id number]#1 .00TIFF [facility] Lab Reports [id number]#1 .00TIFF [facility] ALL BUNon 08-20-2023 Urea nitrogen [Mass/Vol] 12.0 mg/dL 7.0 - 18.0 mg/dL [facility] ALL CARBON DIOXIDEon 024 CO2 [Moles/Vol] 30.1 mmol/L 21.0 - 32.0 mmol/L [facility] ALL CHLORIDEon 08-20-2023 Chloride [Moles/Vol] 104 mmol/L 98 - 107 mmol/L [facility] ALL PHOSPHOROUSon 08-20-2023 Phosphate [Mass/Vol] 4.1 mg/dL 2.6 - 4.7 mg/dL [facility] ALL SODIUMon 08-20-2023 Sodium [Moles/Vol] 141 mmol/L 136 - 145 mmol/L [facility] ALL URIC ACIDon 08-20-2023 Urate [Mass/Vol] 4.4 mg/dL 2.6 - 6.0 mg/dL [facility] CALCIUMon 08-20-2023 Calcium [Mass/Vol] 9.1 mg/dL 8.5 - 10.1 mg/dL [facility] No Panel Informationon 08-20 [facility] CREATININEon 08-20-2023 Creatinine [Mass/Vol] 0.86 mg/dL 0.55 - 1.02 mg/dL [facility] GFR/1.73 sq M.predicted CKD-EPI (S/P/Bld) [Vol rate/Area] >60 60 - PINF [facility] EGFR-NON AF [facility] >60 60 - PINF [facility] Consent for Procedure/Surger yon 08-15-2023 Consent for Procedure/Surgery [id number]#1 .00TIFF Normal [facility] ED Note-Physicianon 08-15-19 ED Note-Physician [id number]#1. 00TIFF Normal [facility] Lab Reportson 08-15-2023 Lab Reports [id number]#1. 00TIFF Normal [facility] Lab Reports [id number]#1 .00TIFF Normal [facility] Lab Reports [id number]#1 .00TIFF Normal [facility] Operative Reporton Operative Report [id number]#1 .00TIFF Normal [facility] RAD - CT Reporton 08-15-2023 RAD - CT Report [id number]#1. 00TIFF Normal [facility] Ambulatory Visit Summaryon 0 08-13-2023 Ambulatory Visit [...] Williams Venegas Where: [facility] Ju Normal [address] [place] [address]- \.br\ You Need to Schedule the Following Appointments\.br \ Follow Up with ANGELITO AGUIAR, Renato Arzola, URL When: \.br\ Comments:\.br\ sched ureteroscopy\.br \ f/u w/ [facility] scheduled 10/14/23\.br\ Where:\.br\ [facility] [address]br\ [place] [address]-\.br\ [id number]\.br\ Medications\.br\ What How Much When Instructions\.br \ [...] murmur\.br\ History of uterine cancer\.br\ Hx of long term acute care registered nurse use of blood thinners\.br\ Kidney stones\.br\ Nocturia\.br\ [...] including vitamins, herbs, eye drops, creams, and nobe-kkl-kwbdwcr medicines.\.br\ ? \.br\ Any problems you or [...] you to take them.\.br\ ? \.br\ Taking oadv-fva-wdxqqow medicines, vitamins, herbs, and supplements.\.br \ Eating [...] including vitamins, herbs, eye drops, creams, and bpka-tao-pvsdfok medicines. ? Any problems you or family [...] tells you to take them. ? Taking fzop-vez-dgiznyx medicines, vitamins, herbs, and supplements. Eating and [...] Patient is here for follow up to [facility] ER HPI Staff Patient is here for f/u to [facility] ER on 08/12/23 due to distal [...] Hydronephrosis with renal and ureteral calculous obstruction) [facility] ER visit 08/12/23 due to R [...] abdominal pain) See #1 4. Anticoagulated (Z79.01: terminal manager (current) use of anticoagulants) On warfarin 3mg for a-fib. States she did not take this last night. Advised pt not to take her dose today either. Follow-up With When Contact Information ANGELITO AGUIARRenato, URL [facility] [address] [place] [address]- [phone] Additional Instructions: sched ureteroscopy f/u w/ [facility] scheduled 10/14/23 Patient Education Laser Therapy for Kidney Stones Channing, Amy Gallagher, personally scribed for Dr. Santacruz on 08/13/2023 11:35:03. . Documentation recorded by the scribe, Amy Gallagher, accurately reflects the services(s) I performed and decisions made by me. Authenticated by Dr. Santacruz on 08/13/2023 11:37:02. Problem List/Past Medical History [place] (more content not included)... Normal [facility] Comment on above: Result Comment: Elec tronically Signed By: Renato SANTACRUZ MD\.br\Date and Time Signed: 08/13/23 11:37 EST\.br\Electronically Co-Signed By: Amy Gallagher\.br\Date and Time Co-Signed: 08/13/23 11:35 EST COVID/FLU/RSV RT-PCRon 07-25 SARS-CoV-2 (COVID-19) RNA TREASURE+probe Ql (Unsp spec) Negative [facility] Other COVID/FLU/RSV RT-PCR Negative [facility] Other COVID/FLU/RSV RT-PCR Positive [facility] Other Calculus Analysison 03-27-20 23 Calcium oxalate dihydrate Infrared spectroscopy (Stone) [Mass fraction] 100 % Invalid Interpretation Code [facility] Comment on above: Performed By: #### 1 [id number] ####[facility] [address] [place] [address] Color (Stone) Roper Invalid Interpretation Code [facility] Comment on above: Performed By: #### 1 [id number] ####[facility] [address] [place] [address] Composition Comment Invalid Interpretation Code [facility] Comment on above: Result Comment: Perc entage (Represents the % composition) Performed By: #### 1 [id number] ####[facility] [address] [place] [address] Disclaimer: Comment Invalid Interpretation Code [facility] Comment on above: Result Comment: This test was developed and its performance characteristics determined by [facility]. It has not been cleared or approved by the Food and Drug Administration. Performed at: [facility] [address] [id number] PhD Silvestre Esquivel Performed By: #### 1 [id number] ####[facility] [address] [place] [address] Laboratory comment Noam (Report) Comment Invalid Interpretation Code [facility] Comment on above: Result Comment: Coco goode questions regarding Calculi Analysis contact [facility] at: [phone]. Performed By: #### 1 [id number] ####[address] [address] Please Note: Comment Invalid Interpretation Code [facility] Comment on above: Result Comment: Calc javier report will follow via computer, mail or broadcast operations manager delivery. Performed By: #### 1 [id number] ####[address] [place] [address] Size (Stone) [Entitic vol] 6x4 Invalid Interpretation Code [facility] Comment on above: Result Comment: Sing le piece received. Performed By: #### 1 [id number] ####[address] [place] [address] Specimen source subject Nom Comment Invalid Interpretation Code [facility] Comment on above: Result Comment: Not provided Performed By: #### 1 [id number] ####[facility] [address] [place] [address] Stone Photo Comment Invalid Interpretation Code [facility] Comment on above: Result Comment: Phot ograph will follow under a separate cover Performed By: #### 1 [id number] ####[facility] [address] [place] [address] Weight (Stone) 49 mg Invalid Interpretation Code [facility] Comment on above: Performed By: #### 1 [id number] ####[facility] [address] [place] [address] Lab Reportson 03-27-2023 Lab Reports [id number]. 00CD:127 Normal [facility] Activated partial thrombopla stin time (aPTT) in platelet poor plasma by coagulation aOrdered By: Williams Shepherd on 03-26-2023 aPTT Coag (PPP) [Time] 35.9 s 25.1-36.5 [facility] Comment on above: A hematocrit value g reater than 55% may lead to inaccurate results in coagulation testing. Patients having hematocrit values >55% require a special collection tube for coagulation studies. Please contact the laboratory at [phone] for redraw instructions. Basic Metabolic Panelon 03-14 Anion gap [Moles/Vol] 13.0 mmol/L Normal 6.0-15.0 [facility] Comment on above: Performed By: #### P T, BMP, CBC, PTT #### [facility] [address] [place] [address] Calcium [Mass/Vol] 10.0 mg/dL Normal 8.6-10.[address] [facility] Comment on above: Result Comment: PERF ORMED BY: [place] [address] PATHOLOGIST [employer] BERNIE GRAYSON M.D. Performed By: #### P T, BMP, CBC, PTT #### [facility] [address] Chloride [Moles/Vol] 104 mmol/L Normal 98-107 [facility] Comment on above: Performed By: #### P T, BMP, CBC, PTT #### [facility] [address] [place] [id number] [place] CO2 [Moles/Vol] 30.0 mmol/L Normal 21.0-31.0 [facility] Comment on above: Performed By: #### P T, BMP, CBC, PTT #### [facility] [address] [place] [address] [place] Creatinine [Mass/Vol] 0.85 mg/dL Normal 0.60-1.20 [facility] Comment on above: Performed By: #### P T, BMP, CBC, PTT #### [facility] [address] GFR/1.73 sq M.predicted MDRD (S/P/Bld) [Vol rate/Area] mL/min/{1.73_m2} Normal [facility] Comment on above: Performed By: #### P T, BMP, CBC, PTT #### [facility] [address] Glucose [Mass/Vol] 111 mg/dL High 70-[address] [facility] Comment on above: Result Comment: [place] Glucose Reference Range is dependent on time and content of last meal. Glucose of more than 200 mg/dL in a nonstressed, ambulatory subject supports the diagnosis of Diabetes Mellitus. ADA recommended reference range Performed By: #### P T, BMP, CBC, PTT #### [facility] [address] Potassium [Moles/Vol] 5.0 mmol/L Normal 3.5-5.1 [facility] Comment on above: Performed By: #### P T, BMP, CBC, PTT #### [address] Sodium [Moles/Vol] 142 mmol/L Normal 136-[address] [facility] Comment on above: Performed By: #### P T, BMP, CBC, PTT #### [facility] [address] [place] [address] Urea nitrogen [Mass/Vol] 12 mg/dL Normal 7-25 [facility] Comment on above: Performed By: #### P T, BMP, CBC, PTT #### [facility] [address] Basophils Auto (Bld) [#/Vol] Ordered By: Williams Shepherd on 03-26-2023 Basophils (Bld) [#/Vol] 0.0 10*3/uL 0.0-0.2 [facility] Basophils/100 WBC Auto (Bld) Ordered By: Williams Shepherd on 03-26-2023 Basophils/100 WBC (Bld) 0.8 % . [facility] Calcium [Mass/volume] in Ser um or PlasmaOrdered By: Williams Shepherd on 03-26-2023 Calcium [Mass/Vol] 10.0 mg/dL 8.6-10.[address] [facility] Carbon dioxide, total [Moles /volume] in Serum or PlasmaOrdered By: Williams Shepherd on 03-26-2023 CO2 [Moles/Vol] 30.0 mmol/L 21.0-31.0 [facility] Chloride [Moles/volume] in S fartun or PlasmaOrdered By: Williams Shepherd on 03-26-2023 Chloride [Moles/Vol] 104 mmol/L 98-107 [facility] Complete Blood Count Auto Di ffon 03-26-2023 Basophils (Bld) [#/Vol] 0.0 10*3/uL Normal 0.0-0.2 [facility] Comment on above: Result Comment: PERF ORMED BY: [place] [address] PATHOLOGIST [employer] BERNIE GRAYSON M.D. Performed By: #### P T, BMP, CBC, PTT #### [facility] [address] [place] [address] Basophils/100 WBC (Bld) 0.8 % Normal . [facility] Comment on above: Performed By: #### P T, BMP, CBC, PTT #### [facility] [address] [place] [address] [place] Eosinophils (Bld) [#/Vol] 0.3 10*3/uL Normal 0.0-0.45 [facility] Comment on above: Performed By: #### P T, BMP, CBC, PTT #### [address] Eosinophils/100 WBC (Bld) 4.3 % Normal . [facility] Comment on above: Performed By: #### P T, BMP, CBC, PTT #### [facility] [address] [place] [address] Erythrocyte distribution width (RBC) [Ratio] 14.8 % Normal 11.9-15.3 [facility] Comment on above: Performed By: #### P T, BMP, CBC, PTT #### [address] Hematocrit (Bld) [Volume fraction] 40.3 % Normal 34.0-46.4 [facility] Comment on above: Performed By: #### P T, BMP, CBC, PTT #### [address] Hemoglobin (Bld) [Mass/Vol] 13.3 g/dL Normal 11.8-15.4 [facility] Comment on above: Performed By: #### P T, BMP, CBC, PTT #### [address] Lymphocytes (Bld) [#/Vol] 2.2 10*3/uL Normal 1.00-4.8 [facility] Comment on above: Performed By: #### P T, BMP, CBC, PTT #### [address] Lymphocytes/100 WBC (Bld) 36.9 % Normal . [facility] Comment on above: Performed By: #### P T, BMP, CBC, PTT #### [address] MCH (RBC) [Entitic mass] 31.1 pg Normal 24.7-34.3 [facility] Comment on above: Performed By: #### P T, BMP, CBC, PTT #### [address] MCV (RBC) [Entitic vol] 94.4 fL Normal 80-100 [facility] Comment on above: Performed By: #### P T, BMP, CBC, PTT #### [address] Mean Corpuscular HGB Conc 32.9 g/dL Normal 32.0-35.0 [facility] Comment on above: Performed By: #### P T, BMP, CBC, PTT #### [facility] [address] Monocytes (Bld) [#/Vol] 0.5 10*3/uL Normal 0.0-0.8 [facility] Comment on above: Performed By: #### P T, BMP, CBC, PTT #### [address] Monocytes/100 WBC (Bld) 7.8 % Normal . [facility] Comment on above: Performed By: #### P T, BMP, CBC, PTT #### [address] Neutrophils (Bld) [#/Vol] 3.0 10*3/uL Normal 1.8-7.7 [facility] Comment on above: Performed By: #### P T, BMP, CBC, PTT #### [address] Neutrophils/100 WBC (Bld) 50.2 % Normal . [facility] Comment on above: Performed By: #### P T, BMP, CBC, PTT #### [facility] [address] [place] [address] NRBC% 0.3 /100{WBC} Normal 0-0.5 [facility] Comment on above: Performed By: #### P T, BMP, CBC, PTT #### [facility] [address] [place] [address] Platelet mean volume (Bld) [Entitic vol] 7.1 fL Normal 6.3-10.7 [facility] Comment on above: Performed By: #### P T, BMP, CBC, PTT #### [facility] [address] [place] [address] [place] Platelets (Bld) [#/Vol] 363 10*3/uL Normal 150-450 [facility] Comment on above: Performed By: #### P T, BMP, CBC, PTT #### [facility] [address] [place] [address] [place] RBC (Bld) [#/Vol] 4.27 10*6/uL Normal 3.60-5.00 [facility] Comment on above: Performed By: #### P T, BMP, CBC, PTT #### [facility] [address] WBC (Bld) [#/Vol] 5.9 10*3/uL Normal 3.8-11.[address] [facility] Comment on above: Performed By: #### P T, BMP, CBC, PTT #### [facility] [address] [place] [address] Creatinine [Mass/volume] in Serum or PlasmaOrdered By: Williams Shepherd on 03-26-2023 Creatinine [Mass/Vol] 0.85 mg/dL 0.60-1.20 [facility] ECG 12 lead ECGon 03-26-2023 ECG 12 lead ECG [facility] [place] [address] [place] [address] Electrocardiograph Report Signed Patient: Wilda Sen MR#: [id number] 8 : 1945 Acct:[id number] Age/Sex: 77 / F ADM Date: 03/26/23 Loc: Room: Type: [facility] Attending Dr: Williams Shepherd MD [...] By Maru Whitehead DO 03/26 190 Normal [facility] Eosinophils Auto (Bld) [#/Vo l]Ordered By: Williams Shepherd on 03-26-2023 Eosinophils (Bld) [#/Vol] 0.3 10*3/uL 0.0-0.45 [facility] Eosinophils/100 WBC Auto (Bl d)Ordered By: Williams Shepherd on 03-26-2023 Eosinophils/100 WBC (Bld) 4.3 % . [facility] Erythrocyte distribution wid th Auto (RBC) [Ratio]Ordered By: Williams Shepherd on 03-26-2023 Erythrocyte distribution width (RBC) [Ratio] 14.8 % 11.9-15.3 [facility] Glucose [Mass/volume] in Ser um or PlasmaOrdered By: Williams Shepherd on 03-26-2023 Glucose [Mass/Vol] 111 mg/dL 70-[address] [facility] Comment on above: ADA recommended refe rence rangeRandom Glucose Reference Range is dependent on time and content of last meal. Glucose of more than 200 mg/dL in a nonstressed, ambulatory subject supports the diagnosis of Diabetes Mellitus. Hematocrit Auto (Bld) [Volum e fraction]Ordered By: Williams Shepherd on 03-26-2023 Hematocrit (Bld) [Volume fraction] 40.3 % 34.0-46.4 [facility] Hemoglobin [Mass/volume] in BloodOrdered By: Williams Shepherd on 03-26-2023 Hemoglobin (Bld) [Mass/Vol] 13.3 g/dL 11.8-15.4 [facility] INR in Platelet poor plasma by Coagulation assayOrdered By: Williams Shepherd on 03-26-2023 INR Coag (PPP) [Relative time] 2.3 {INR} [facility] Comment on above: INR Therapeutic Rang [...] RBC Auto (Bld) [#/Vol] 5.9 10*3/uL 3.8-11.6 [facility] Lymphocytes Auto (Bld) [#/Vo l]Ordered By: Williams Shepherd on 03-26-2023 Lymphocytes (Bld) [#/Vol] 2.2 10*3/uL 1.00-4.8 [facility] Lymphocytes/100 WBC Auto (Bl d)Ordered By: Williams Shepherd on 03-26-2023 Lymphocytes/100 WBC (Bld) 36.9 % . [facility] MCH Auto (RBC) [Entitic mass ]Ordered By: Williams Shepherd on 03-26-2023 MCH (RBC) [Entitic mass] 31.1 pg 24.7-34.3 [facility] MCHC Auto (RBC) [Mass/Vol]Or dered By: Williams Shepherd on 03-26-2023 MCHC (RBC) [Mass/Vol] 32.9 g/dL 32.0-35.0 [facility] MCV Auto (RBC) [Entitic vol] Ordered By: Williams Shepherd on 03-26-2023 MCV (RBC) [Entitic vol] 94.4 fL 80-100 [facility] Monocytes Auto (Bld) [#/Vol] Ordered By: Williams Shepherd on 03-26-2023 Monocytes (Bld) [#/Vol] 0.5 10*3/uL 0.0-0.8 [facility] Monocytes/100 WBC Auto (Bld) Ordered By: Williams Shepherd on 03-26-2023 Monocytes/100 WBC (Bld) 7.8 % . [facility] Neutrophils Auto (Bld) [#/Vo l]Ordered By: Williams Shepherd on 03-26-2023 Neutrophils (Bld) [#/Vol] 3.0 10*3/uL 1.8-7.7 [facility] Neutrophils/100 WBC Auto (Bl d)Ordered By: Williams Shepherd on 03-26-2023 Neutrophils/100 WBC (Bld) 50.2 % . [facility] No Panel InformationOrdered By: Williams Shepherd on 03-26-2023 Estimated GFR (CKD-EPI) > 60.0 mL/Min [facility] Creatinine Clearance (Chem N/A [facility] Nucleated erythrocytes [Pres ence] in Blood by Automated countOrdered By: Williams Shepherd on 03-26-2023 Nucleated RBC Auto Ql (Bld) 0.3 /100{WBC} 0-0.5 [facility] Partial Thromboplastin Timeo n 03-26-2023 aPTT Coag (Bld) [Time] 35.9 s Normal 25.1-36.5 [facility] Comment on above: Result Comment: A he matocrit value greater than 55% may lead to inaccurate results in coagulation testing. Patients having hematocrit values >55% require a special collection tube for coagulation studies. Please contact the laboratory at [phone] for redraw instructions. PERFORMED BY: [place] [address] PATHOLOGIST [facility] GRAYSON M.D. Performed By: #### P T, BMP, CBC, PTT #### [address] Platelet mean volume Auto (B ld) [Entitic vol]Ordered By: Williams Shepherd on 03-26-2023 Platelet mean volume (Bld) [Entitic vol] 7.1 fL 6.3-10.7 [facility] Platelets Auto (Bld) [#/Vol] Ordered By: Williams Shepherd on 03-26-2023 Platelets (Bld) [#/Vol] 363 10*3/uL 150-450 [facility] Potassium [Moles/volume] in Serum or PlasmaOrdered By: Williams Shepherd on 03-26-2023 Potassium [Moles/Vol] 5.0 mmol/L 3.5-5.1 [facility] Prothrombin Time INRon 03-26 INR Coag (PPP) [Relative time] 2.3 {INR} Normal [facility] Comment on above: Result Comment: INR [...] #### P T, BMP, CBC, PTT #### [facility] [address] [place] [address] [place] PT Coag (PPP) [Time] 26.6 s High 9.0-12.9 [facility] Comment on above: Result Comment: A he matocrit value greater than 55% may lead to inaccurate results in coagulation testing. Patients having hematocrit values >55% require a special collection tube for coagulation studies. Please contact the laboratory at [phone] for redraw instructions. Performed By: #### P T, BMP, CBC, PTT #### [facility] [address] [place] [address] [facility] Prothrombin time (PT)Ordered By: Williams Shepherd on 03-26-2023 PT Coag (PPP) [Time] 26.6 s 9.0-12.9 [facility] Comment on above: A hematocrit value g reater than 55% may lead to inaccurate results in coagulation testing. Patients having hematocrit values >55% require a special collection tube for coagulation studies. Please contact the laboratory at [phone] for redraw instructions. RBC Auto (Bld) [#/Vol]Ordere d By: Williams Shepherd on 03-26-2023 RBC (Bld) [#/Vol] 4.27 10*6/uL 3.60-5.00 [facility] Serum or plasma anion gap de terminationOrdered By: Williams Shepherd on 03-26-2023 Anion gap [Moles/Vol] 13.0 mmol/L 6.0-15.0 [facility] Sodium [Moles/volume] in Ser um or PlasmaOrdered By: Williams Shepherd on 03-26-2023 Sodium [Moles/Vol] 142 mmol/L 136-[address] [facility] Urea nitrogen [Mass/volume] in Serum or PlasmaOrdered By: Williams Shepherd on 03-26-2023 Urea nitrogen [Mass/Vol] 12 mg/dL 7-25 [facility] WBC Auto (Bld) [#/Vol]Ordere d By: Williams Shepherd on 03-26-2023 WBC (Bld) [#/Vol] 5.9 10*3/uL 3.8-11.[address] [facility] Consultation Noteon 03-17-20 23 Consultation Note [id number]#1 .00CD:127 [facility] Lab Reportson 02-12-2023 Lab Reports [id number]#1 .00CD:127 [facility] RAD - MISCon 02-12-2023 RAD - MISC [id number] .00CD:127 [facility] RAD - CT Reporton 02-05-2023 RAD - CT Report [id number]#1 .00CD:127 [facility] RAD - MISCon 02-05-2023 RAD - MISC [id number] .00CD:127 [facility] Ambulatory Visit Summaryon 0 02-03-2023 [...] [facility] Patient Educationon 02-04-20 Patient Education Urology [...] these instructions at home: Medicines ? Take crat-oxo-jgxdrfb and prescription medicines only as told by [...] 16 month follow up w/ CT scan [facility] Staff Pt is here today for 16 month follow up w/ CT scan done @[facility] on 01/15/23. CT scan shows partially [...] SHEPHERD MD, URL [address] [place] [id number]- Additional Instructions: Patient Education Kidney Stones I, Fanny Bowen, personally scribed for Dr. Shepherd on 02/03/2023 12:04:03. . Documentation recorded by the scribe, Fanny Bowen, accurately reflects the services(s) I performed and decisions made by me. Authenticated by Dr. Shepherd on 02/03/2023 12:37:35. Portions of this record may have been created with voice recognition artificial intelligence software, specifically [employer] and or [employer]. Substitutions may have occurred due to the inherent limitations of voice recognition and artificial intelligence software. 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 Normal [facility] Comment on above: Result Comment: Elec tronically Signed By: Williams SHEPHERD MD\.br\Date and Time Signed: 02/03/23 12:39 EDT\.br\Electronically Co-Signed By: Fanny Bowen\.br\Date and Time Co-Signed: 02/03/23 12:04 EDT PROTIMEon 12-02-2022 INR Coag (PPP) [Relative time] 3.62 {INR} Normal [facility] Comment on above: Performed By: #### P T #### [facility] [address] [place] [address] Dr. Tg Fierro INR GUIDELINES SEE BELOW Normal [facility] Comment on above: Result Comment: LAURENCE RED INR: 2.0 - 3.0 CONDITIONS NOT LISTED BELOW 2.5 - 3.5 FOR PROSTHETIC HEART VALVE REPLACEMENT 2.5 - 3.5 RECURRENT THROMBOSIS Performed By: #### P T #### [facility] [address] [place] [address] Dr. Tg Fierro PT Coag (PPP) [Time] 35.7 s Critically high 9.0-11.6 [facility] Comment on above: Performed By: #### P T #### [facility] [address] [place] [address] Dr. Tg Fierro PROTIMEon 11-11-2022 INR Coag (PPP) [Relative time] 1.90 {INR} Normal [facility] Comment on above: Performed By: #### P T #### [facility] [address] [place] [address] Dr. Tg Fierro INR GUIDELINES SEE BELOW Normal [facility] Comment on above: Result Comment: LAURENCE RED INR: 2.0 - 3.0 CONDITIONS NOT LISTED BELOW 2.5 - 3.5 FOR PROSTHETIC HEART VALVE REPLACEMENT 2.5 - 3.5 RECURRENT THROMBOSIS Performed By: #### P T #### [facility] [address] [place] [address] Dr. Tg Fierro PT Coag (PPP) [Time] 19.4 s Critically high 9.0-11.6 [facility] Comment on above: Performed By: #### P T #### [facility] [address] [place] [address] Dr. Tg Fierro CBC AUTO DIFFon 10-25-2022 BASO # 0.0 103/ul Normal 0.0-0.1 [facility] Comment on above: Performed By: #### P T #### [facility] [address] [place] [address] Dr. Tg Fierro Basophils/100 WBC (Bld) 0.5 % Normal 0.2-2.0 [facility] Comment on above: Performed By: #### P T #### [facility] [address] [place] [address] Dr. Tg Fierro EO # 0.2 103/ul Normal 0.0-0.7 [facility] Comment on above: Performed By: #### P T #### [facility] [address] [place] [address] Dr. Tg Fierro Eosinophils/100 WBC (Bld) 2.7 % Normal 0.9-7.0 [facility] Comment on above: Performed By: #### P T #### [facility] [address] [place] [address] Dr. Tg Fierro Erythrocyte distribution width (RBC) [Ratio] 13.4 % Normal 11.0-15.0 [facility] Comment on above: Performed By: #### P T #### [facility] [address] [place] [address] Dr. Tg Fierro Hematocrit (Bld) [Volume fraction] 40.7 % Normal 36.0-48.0 [facility] Comment on above: Performed By: #### P T #### [facility] [address] [place] [address] Dr. Tg Fierro Hemoglobin (Bld) [Mass/Vol] 13.2 g/dL Normal 12.0-16.0 [facility] Comment on above: Performed By: #### P T #### [facility] [address] [place] [address] Dr. Tg Fierro IG # 0.03 10e3/ul Normal 0.00-0.03 [facility] Comment on above: Performed By: #### P T #### [facility] [address] [place] [address] Dr. Tg Fierro IG % 0.5 % Normal 0.0-0.5 [facility] Comment on above: Performed By: #### P T #### [facility] [address] [place] [address] Dr. Tg Fierro LYMPH # 2.1 103/ul Normal 1.2-3.8 [facility] Comment on above: Performed By: #### P T #### [facility] [address] [place] [address] Dr. Tg Fierro Lymphocytes/100 WBC (Bld) 34.9 % Normal 20.5-60.0 [facility] Comment on above: Performed By: #### P T #### [facility] [address] [place] [address] Dr. Tg Fierro MANUAL DIFF REQ NO Normal [facility] Comment on above: Performed By: #### P T #### [facility] [address] [place] [address] Dr. Tg Fierro MCH (RBC) [Entitic mass] 30.5 pg Normal 26.7-34.0 [facility] Comment on above: Performed By: #### P T #### [facility] [address] [place] [address] Dr. gT Fierro MCHC (RBC) [Mass/Vol] 32.4 g/dL Normal 29.9-35.2 [facility] Comment on above: Performed By: #### P T #### [facility] [address] [place] [address] Dr. Tg Fierro MCV (RBC) [Entitic vol] 94.0 fL Normal 81.0-99.0 [facility] Comment on above: Performed By: #### P T #### [facility] [address] [place] [address] Dr. Tg Fierro MONO # 0.4 103/ul Normal 0.3-0.8 [facility] Comment on above: Performed By: #### P T #### [facility] [address] [place] [address] Dr. Tg Fierro Monocytes/100 WBC (Bld) 7.1 % Normal 1.7-12.0 [facility] Comment on above: Performed By: #### P T #### [facility] [address] [place] [address] Dr. Tg Fierro NEUT # 3.2 103/ul Normal 1.4-6.5 [facility] Comment on above: Performed By: #### P T #### [facility] [address] [address] [address] Tg Fierro Neutrophils/100 WBC (Bld) 54.3 % Normal 43.0-75.0 [facility] Comment on above: Performed By: #### P T #### [facility] [address] [place] [address] Dr. Tg Fierro Platelet mean volume (Bld) [Entitic vol] 8.7 fL Critically low 9.5-13.5 [facility] Comment on above: Performed By: #### P T #### [facility] [address] [address] [address] Tg Fierro PLT 295 103/ul Normal 150-450 [facility] Comment on above: Performed By: #### P T #### [facility] [address] [place] [address] Dr. Tg Fierro RBC 4.33 106/ul Normal 4.20-5.40 [facility] Comment on above: Performed By: #### P T #### [facility] [address] [place] [address] Dr. Tg Fierro WBC 5.9 103/ul Normal 4.0-11.0 [facility] Comment on above: Performed By: #### P T #### [facility] [address] [place] [address] Dr. Tg Fierro PROF 14(COMP METB)on 023 Albumin [Mass/Vol] 3.8 g/dL Normal 3.4-5.0 [facility] Comment on above: Performed By: #### C MP #### [facility] [address] [place] [address] Dr. Tg Fierro Albumin/Globulin [Mass ratio] 1.2 {ratio} Normal [facility] Comment on above: Performed By: #### C MP #### [facility] [address] [place] [address] Dr. Tg Fierro ALP [Catalytic activity/Vol] 49 U/L Normal 46-116 [facility] Comment on above: Performed By: #### C MP #### [facility] [address] [address] [address] Tg Fierro ALT [Catalytic activity/Vol] 21 U/L Normal 14-59 [facility] Comment on above: Performed By: #### C MP #### [facility] [address] [address] [address] Tg Fierro Anion gap [Moles/Vol] 13.3 mmol/L Normal [facility] Comment on above: Performed By: #### C MP #### [facility] [address] [address] [address] Tg Fierro AST [Catalytic activity/Vol] 14 U/L Critically low 15-37 [facility] Comment on above: Performed By: #### C MP #### [facility] [address] [place] [address] Dr. Tg Fierro Bilirubin [Mass/Vol] 0.5 mg/dL Normal 0.2-1.0 [facility] Comment on above: Performed By: #### C MP #### [facility] [address] [place] [address] Dr. Tg Fierro Calcium [Mass/Vol] 9.5 mg/dL Normal 8.5-10.1 [facility] Comment on above: Performed By: #### C MP #### [facility] [address] [address] [address] Tg Fierro Chloride [Moles/Vol] 104 mmol/L Normal 98-107 [facility] Comment on above: Performed By: #### C MP #### [facility] [address] [address] [address] Tg Fierro CO2 [Moles/Vol] 29.3 mmol/L Normal 21.0-32.0 [facility] Comment on above: Performed By: #### C MP #### [facility] [address] [address] [address] Tg Fierro Creatinine [Mass/Vol] 0.93 mg/dL Normal 0.55-1.02 [facility] Comment on above: Performed By: #### C MP #### [facility] [address] [address] [address] Tg Fierro EGFR-AF [facility] >60 Normal >=60 [facility] Comment on above: Performed By: #### C MP #### [facility] [address] [address] [address] Tg Fierro EGFR-NON AF [facility] 59 mL/min/1.73m2 Critically low >=60 [facility] Comment on above: Performed By: #### C MP #### [facility] [address] [address] [address] Tg Fierro Globulin (S) [Mass/Vol] 3.2 g/dL Normal [facility] Comment on above: Performed By: #### C MP #### [facility] [address] [address] [address] Tg Fierro Glucose [Mass/Vol] 186 mg/dL Critically high 74-106 [facility] Comment on above: Performed By: #### C MP #### [facility] [address] [address] [address] Tg Fierro Potassium [Moles/Vol] 4.6 mmol/L Normal 3.5-5.1 [facility] Comment on above: Performed By: #### C MP #### [facility] [address] [place] [address] Dr. Tg Fierro Protein [Mass/Vol] 7.0 g/dL Normal 6.4-8.2 [facility] Comment on above: Performed By: #### C MP #### [facility] [address] [address] [address] Tg Fierro Sodium [Moles/Vol] 142 mmol/L Normal 136-145 [facility] Comment on above: Performed By: #### C MP #### [facility] [address] [place] [address] Dr. Tg Fierro Urea nitrogen [Mass/Vol] 15.0 mg/dL Normal 7.0-18.0 [facility] Comment on above: Performed By: #### C MP #### [facility] [address] [place] [address] Dr. Tg Fierro Urea nitrogen/Creatinine [Mass ratio] 16.1 mg/mg Normal [facility] Comment on above: Performed By: #### C MP #### [facility] [address] [place] [address] Dr. Tg Fierro SED RATE WESTERGRENon 2022 SED RATE 9 mm/hr Normal <=30 [facility] Comment on above: Performed By: #### C MP #### [facility] [address] [place] [address] Dr. Tg Fierro PROTIMEon 10-14-2022 INR Coag (PPP) [Relative time] 1.94 {INR} Normal [facility] Comment on above: Performed By: #### P T #### [facility] [address] [place] [address] Dr. Tg Fierro INR GUIDELINES SEE BELOW Normal [facility] Comment on above: Result Comment: LAURENCE RED INR: 2.0 - 3.0 CONDITIONS NOT LISTED BELOW 2.5 - 3.5 FOR PROSTHETIC HEART VALVE REPLACEMENT 2.5 - 3.5 RECURRENT THROMBOSIS Performed By: #### P T #### [facility] [address] [place] [address] Dr. Tg Fierro PT Coag (PPP) [Time] 19.8 s Critically high 9.0-11.6 [facility] Comment on above: Performed By: #### P T #### [facility] [address] [place] [address] Dr. Tg Fierro CBC AUTO DIFFon 09-24-2022 BASO # 0.1 103/ul Normal 0.0-0.1 [facility] Comment on above: Performed By: #### P T #### [facility] [address] [place] [address] Dr. Tg Fierro Basophils/100 WBC (Bld) 0.7 % Normal 0.2-2.0 [facility] Comment on above: Performed By: #### P T #### [facility] [address] [place] [address] Dr. Tg Fierro EO # 0.3 103/ul Normal 0.0-0.7 [facility] Comment on above: Performed By: #### P T #### [facility] [address] [address] [address] Tg Fierro Eosinophils/100 WBC (Bld) 3.6 % Normal 0.9-7.0 [facility] Comment on above: Performed By: #### P T #### [facility] [address] [place] [address] Dr. Tg Fierro Erythrocyte distribution width (RBC) [Ratio] 13.4 % Normal 11.0-15.0 [facility] Comment on above: Performed By: #### P T #### [facility] [address] [place] [address] Dr. Tg Fierro Hematocrit (Bld) [Volume fraction] 38.4 % Normal 36.0-48.0 [facility] Comment on above: Performed By: #### P T #### [facility] [address] [place] [address] Dr. Tg Fierro Hemoglobin (Bld) [Mass/Vol] 12.7 g/dL Normal 12.0-16.0 [facility] Comment on above: Performed By: #### P T #### [facility] [address] [place] [address] Dr. Tg Fierro IG # 0.05 10e3/ul Critically high 0.00-0.03 [facility] Comment on above: Performed By: #### P T #### [facility] [address] [place] [address] Dr. Tg Fierro IG % 0.7 % Critically high 0.0-0.5 [facility] Comment on above: Performed By: #### P T #### [facility] [address] [address] [address] Tg Fierro LYMPH # 2.6 103/ul Normal 1.2-3.8 [facility] Comment on above: Performed By: #### P T #### [facility] [address] [place] [address] Dr. Tg Fierro Lymphocytes/100 WBC (Bld) 34.2 % Normal 20.5-60.0 [facility] Comment on above: Performed By: #### P T #### [facility] [address] [place] [address] Dr. Tg Fierro MANUAL DIFF REQ NO Normal [facility] Comment on above: Performed By: #### P T #### [facility] [address] [place] [address] Dr. Tg Fierro MCH (RBC) [Entitic mass] 31.2 pg Normal 26.7-34.0 [facility] Comment on above: Performed By: #### P T #### [facility] [address] [place] [address] Dr. Tg Fierro MCHC (RBC) [Mass/Vol] 33.1 g/dL Normal 29.9-35.2 [facility] Comment on above: Performed By: #### P T #### [facility] [address] [place] [address] Dr. Tg Fierro MCV (RBC) [Entitic vol] 94.3 fL Normal 81.0-99.0 [facility] Comment on above: Performed By: #### P T #### [facility] [address] [place] [address] Dr. Tg Fierro MONO # 0.6 103/ul Normal 0.3-0.8 [facility] Comment on above: Performed By: #### P T #### [facility] [address] [place] [address] Dr. Tg Fierro Monocytes/100 WBC (Bld) 8.1 % Normal 1.7-12.0 [facility] Comment on above: Performed By: #### P T #### [facility] [address] [place] [address] Dr. Tg Fierro NEUT # 4.1 103/ul Normal 1.4-6.5 [facility] Comment on above: Performed By: #### P T #### [facility] [address] [place] [address] Dr. Tg Fierro Neutrophils/100 WBC (Bld) 52.7 % Normal 43.0-75.0 [facility] Comment on above: Performed By: #### P T #### [facility] [address] [place] [address] Dr. Tg Fierro Platelet mean volume (Bld) [Entitic vol] 8.7 fL Critically low 9.5-13.5 [facility] Comment on above: Performed By: #### P T #### [facility] [address] [place] [address] Dr. Tg Fierro PLT 278 103/ul Normal 150-450 [facility] Comment on above: Performed By: #### P T #### [facility] [address] [place] [address] Dr. Tg Fierro RBC 4.07 106/ul Critically low 4.20-5.40 [facility] Comment on above: Performed By: #### P T #### [facility] [address] [place] [address] Dr. Tg Fierro WBC 7.7 103/ul Normal 4.0-11.0 [facility] Comment on above: Performed By: #### P T #### [facility] [address] [place] [address] Dr. Tg Fierro PROF 14(COMP METB)on 023 Albumin [Mass/Vol] 3.9 g/dL Normal 3.4-5.0 [facility] Comment on above: Performed By: #### C MP #### [facility] [address] [place] [address] Dr. Tg Fierro Albumin/Globulin [Mass ratio] 1.4 {ratio} Normal [facility] Comment on above: Performed By: #### C MP #### [facility] [address] [place] [address] Dr. Tg Fierro ALP [Catalytic activity/Vol] 59 U/L Normal 46-116 [facility] Comment on above: Performed By: #### C MP #### [facility] [address] [place] [address] Dr. Tg Fierro ALT [Catalytic activity/Vol] 21 U/L Normal 14-59 [facility] Comment on above: Performed By: #### C MP #### [facility] [address] [address] [address] Tg Fierro Anion gap [Moles/Vol] 10.8 mmol/L Normal [facility] Comment on above: Performed By: #### C MP #### [facility] [address] [address] [address] Tg Fierro AST [Catalytic activity/Vol] 9 U/L Critically low 15-37 [facility] Comment on above: Performed By: #### C MP #### [facility] [address] [address] [address] Tg Fierro Bilirubin [Mass/Vol] 0.3 mg/dL Normal 0.2-1.0 [facility] Comment on above: Performed By: #### C MP #### [facility] [address] [address] [address] Tg Fierro Calcium [Mass/Vol] 9.1 mg/dL Normal 8.5-10.1 [facility] Comment on above: Performed By: #### C MP #### [facility] [address] [place] [address] Dr. Tg Fierro Chloride [Moles/Vol] 104 mmol/L Normal 98-107 [facility] Comment on above: Performed By: #### C MP #### [facility] [address] [address] [address] Tg Fierro CO2 [Moles/Vol] 28.3 mmol/L Normal 21.0-32.0 [facility] Comment on above: Performed By: #### C MP #### [facility] [address] [address] [address] Tg Fierro Creatinine [Mass/Vol] 0.86 mg/dL Normal 0.55-1.02 [facility] Comment on above: Performed By: #### C MP #### [facility] [address] [address] [address] Tg Fierro EGFR-AF [facility] >60 Normal >=60 [facility] Comment on above: Performed By: #### C MP #### [facility] [address] [address] [address] Tg Fierro EGFR-NON AF [facility] >60 Normal >=60 [facility] Comment on above: Performed By: #### C MP #### [facility] [address] [address] [address] Tg Fierro Globulin (S) [Mass/Vol] 2.7 g/dL Normal [facility] Comment on above: Performed By: #### C MP #### [facility] [address] [address] [address] Tg Fierro Glucose [Mass/Vol] 120 mg/dL Critically high 74-106 [facility] Comment on above: Performed By: #### C MP #### [facility] [address] [address] [address] Tg Fierro Potassium [Moles/Vol] 4.1 mmol/L Normal 3.5-5.1 [facility] Comment on above: Performed By: #### C MP #### [facility] [address] [place] [address] Dr. Tg Fierro Protein [Mass/Vol] 6.6 g/dL Normal 6.4-8.2 [facility] Comment on above: Performed By: #### C MP #### [facility] [address] [place] [address] Dr. Tg Fierro Sodium [Moles/Vol] 139 mmol/L Normal 136-145 [facility] Comment on above: Performed By: #### C MP #### [facility] [address] [address] [address] Tg Fierro Urea nitrogen [Mass/Vol] 13.0 mg/dL Normal 7.0-18.0 [facility] Comment on above: Performed By: #### C MP #### [facility] [address] [address] [address] Tg Fierro Urea nitrogen/Creatinine [Mass ratio] 15.1 mg/mg Normal [facility] Comment on above: Performed By: #### C MP #### [facility] [address] [place] [address] Dr. Tg Fierro PROTIMEon 09-24-2022 INR Coag (PPP) [Relative time] 1.35 {INR} Normal [facility] Comment on above: Performed By: #### P T #### [facility] [address] [place] [address] Dr. Tg Fierro INR GUIDELINES SEE BELOW Normal [facility] Comment on above: Result Comment: LAURENCE RED INR: 2.0 - 3.0 CONDITIONS NOT LISTED BELOW 2.5 - 3.5 FOR PROSTHETIC HEART VALVE REPLACEMENT 2.5 - 3.5 RECURRENT THROMBOSIS Performed By: #### P T #### [facility] [address] [place] [address] Dr. gT Fierro PT Coag (PPP) [Time] 14.1 s Critically high 9.0-11.6 [facility] Comment on above: Performed By: #### P T #### [facility] [address] [place] [address] Dr. Tg Fierro SED RATE [facility] 2022 SED RATE 8 mm/hr Normal <=30 [facility] Comment on above: Performed By: #### C MP #### [facility] [address] [place] [address] Dr. Tg Fierro PROTIMEon 09-09-2022 INR Coag (PPP) [Relative time] 1.23 {INR} Normal [facility] Comment on above: Performed By: #### P T #### [facility] [address] [place] [address] Dr. Tg Fierro INR GUIDELINES SEE BELOW Normal [facility] Comment on above: Result Comment: LAURENCE RED INR: 2.0 - 3.0 CONDITIONS NOT LISTED BELOW 2.5 - 3.5 FOR PROSTHETIC HEART VALVE REPLACEMENT 2.5 - 3.5 RECURRENT THROMBOSIS Performed By: #### P T #### [facility] [address] [place] [address] Dr. Tg Fierro PT Coag (PPP) [Time] 12.9 s Critically high 9.0-11.6 [facility] Comment on above: Performed By: #### P T #### [facility] [address] [place] [address] Dr. Tg Fierro ECHOCARDIO M/2D COMPLETEon 0 09-02-2022 ECHOCARDIO M/2D COMPLETE Patient: WILDA SEN Exam Date: 09/02/2022 : 1945 Gender:F Ordering : DR JAYME PEREZ . Admission #: [id number] Family : Order #: [id number] CLICK HERE TO VIEW EXAM ECHOCARDIOGRAM REPORT [...] Dez Bender M.D. on 09/03/2022 at 17:25 [facility] GLYCOHEMOGLOBIN A1Con 2022 ADA RECOMMENDATION SEE BELOW Normal [facility] Comment on above: Result Comment: ADA RECOMMENDED LIMIT 4.0 - 6.0 ADA THERAPEUTIC TARGET < 7.0 ACTION SUGGESTED > 7.0 Performed By: #### A 1C #### [facility] [address] [place] [address] Dr. Tg Fierro Glucose [Mass/Vol] 148 mg/dL Normal [facility] Comment on above: Performed By: #### A 1C #### [facility] [address] [place] [address] Dr. Tg Fierro HbA1c (Bld) [Mass fraction] 6.8 % Critically high 4.5-6.2 [facility] Comment on above: Performed By: #### A 1C #### [facility] [address] [place] [address] Dr. Tg Fierro CBC AUTO DIFFon 08-05-2022 BASO # 0.1 103/ul Normal 0.0-0.1 [facility] Comment on above: Performed By: #### C BC #### [facility] [address] [place] [address] Dr. Tg Fierro Basophils/100 WBC (Bld) 0.8 % Normal 0.2-2.0 [facility] Comment on above: Performed By: #### C BC #### [facility] [address] [place] [address] Dr. Tg Fierro EO # 0.5 103/ul Normal 0.0-0.7 [facility] Comment on above: Performed By: #### C BC #### [facility] [address] [place] [address] Dr. Tg Fierro Eosinophils/100 WBC (Bld) 7.3 % Critically high 0.9-7.0 [facility] Comment on above: Performed By: #### C BC #### [facility] [address] [place] [address] Dr. Tg Fierro Erythrocyte distribution width (RBC) [Ratio] 13.4 % Normal 11.0-15.0 [facility] Comment on above: Performed By: #### C BC #### [facility] [address] [place] [address] Dr. Tg Fierro Hematocrit (Bld) [Volume fraction] 37.1 % Normal 36.0-48.0 [facility] Comment on above: Performed By: #### C BC #### [facility] [address] [place] [address] Dr. Tg Fierro Hemoglobin (Bld) [Mass/Vol] 12.9 g/dL Normal 12.0-16.0 [facility] Comment on above: Performed By: #### C BC #### [facility] [address] [place] [address] Dr. Tg Fierro IG # 0.03 10e3/ul Normal 0.00-0.03 [facility] Comment on above: Performed By: #### C BC #### [facility] [address] [place] [address] Dr. Tg Fierro IG % 0.5 % Normal 0.0-0.5 [facility] Comment on above: Performed By: #### C BC #### [facility] [address] [place] [address] Dr. Tg Fierro LYMPH # 2.3 103/ul Normal 1.2-3.8 [facility] Comment on above: Performed By: #### C BC #### [facility] [address] [place] [address] Dr. Tg Fierro Lymphocytes/100 WBC (Bld) 34.9 % Normal 20.5-60.0 [facility] Comment on above: Performed By: #### C BC #### [facility] [address] [place] [address] Dr. Tg Fierro MANUAL DIFF REQ NO Normal [facility] Comment on above: Performed By: #### C BC #### [facility] [address] [place] [address] Dr. Tg Fierro MCH (RBC) [Entitic mass] 31.0 pg Normal 26.7-34.0 [facility] Comment on above: Performed By: #### C BC #### [facility] [address] [place] [address] Dr. Tg Fierro MCHC (RBC) [Mass/Vol] 34.8 g/dL Normal 29.9-35.2 [facility] Comment on above: Performed By: #### C BC #### [facility] [address] [place] [address] Dr. Tg Fierro MCV (RBC) [Entitic vol] 89.2 fL Normal 81.0-99.0 [facility] Comment on above: Performed By: #### C BC #### [facility] [address] [address] [address] Tg Fierro MONO # 0.4 103/ul Normal 0.3-0.8 [facility] Comment on above: Performed By: #### C BC #### [facility] [address] [place] [address] Dr. Tg Fierro Monocytes/100 WBC (Bld) 6.1 % Normal 1.7-12.0 [facility] Comment on above: Performed By: #### C BC #### [facility] [address] [place] [address] Dr. Tg Fierro NEUT # 3.3 103/ul Normal 1.4-6.5 [facility] Comment on above: Performed By: #### C BC #### [facility] [address] [place] [address] Dr. Tg Fierro Neutrophils/100 WBC (Bld) 50.4 % Normal 43.0-75.0 [facility] Comment on above: Performed By: #### C BC #### [facility] [address] [place] [address] Dr. Tg Fierro Platelet mean volume (Bld) [Entitic vol] 8.6 fL Critically low 9.5-13.5 [facility] Comment on above: Performed By: #### C BC #### [facility] [address] [place] [address] Dr. Tg Fierro PLT 336 103/ul Normal 150-450 [facility] Comment on above: Performed By: #### C BC #### [facility] [address] [place] [address] Dr. Tg Fierro RBC 4.16 106/ul Critically low 4.20-5.40 [facility] Comment on above: Performed By: #### C BC #### [facility] [address] [place] [address] Dr. Tg Fierro WBC 6.4 103/ul Normal 4.0-11.0 [facility] Comment on above: Performed By: #### C BC #### [facility] [address] [place] [address] Dr. Tg Fierro PROF 14(COMP METB)on 023 Albumin [Mass/Vol] 3.9 g/dL Normal 3.4-5.0 [facility] Comment on above: Performed By: #### P T #### [facility] [address] [place] [address] Dr. Tg Fierro Albumin/Globulin [Mass ratio] 1.3 {ratio} Normal [facility] Comment on above: Performed By: #### P T #### [facility] [address] [place] [address] Dr. Tg Fierro ALP [Catalytic activity/Vol] 60 U/L Normal 46-116 [facility] Comment on above: Performed By: #### P T #### [facility] [address] [place] [address] Dr. Tg Fierro ALT [Catalytic activity/Vol] 21 U/L Normal 14-59 [facility] Comment on above: Performed By: #### P T #### [facility] [address] [place] [address] Dr. Tg Fierro Anion gap [Moles/Vol] 15.2 mmol/L Normal [facility] Comment on above: Performed By: #### P T #### [facility] [address] [place] [address] Dr. Tg Fierro AST [Catalytic activity/Vol] 14 U/L Critically low 15-37 [facility] Comment on above: Performed By: #### P T #### [facility] [address] [place] [address] Dr. Tg Fierro Bilirubin [Mass/Vol] 0.4 mg/dL Normal 0.2-1.0 [facility] Comment on above: Performed By: #### P T #### [facility] [address] [address] [address] Tg Fierro Calcium [Mass/Vol] 9.3 mg/dL Normal 8.5-10.1 [facility] Comment on above: Performed By: #### P T #### [facility] [address] [address] [address] Tg Fierro Chloride [Moles/Vol] 102 mmol/L Normal 98-107 [facility] Comment on above: Performed By: #### P T #### [facility] [address] [address] [address] Tg Fierro CO2 [Moles/Vol] 26.8 mmol/L Normal 21.0-32.0 [facility] Comment on above: Performed By: #### P T #### [facility] [address] [address] [address] Tg Fierro Creatinine [Mass/Vol] 0.74 mg/dL Normal 0.55-1.02 [facility] Comment on above: Performed By: #### P T #### [facility] [address] [address] [address] Tg Fierro EGFR-AF [facility] >60 Normal >=60 [facility] Comment on above: Performed By: #### P T #### [facility] [address] [address] [address] Tg Fierro EGFR-NON AF [facility] >60 Normal >=60 [facility] Comment on above: Performed By: #### P T #### [facility] [address] [address] [address] Tg Fierro Globulin (S) [Mass/Vol] 3.1 g/dL Normal [facility] Comment on above: Performed By: #### P T #### [facility] [address] [address] [address] Tg Fierro Glucose [Mass/Vol] 148 mg/dL Critically high 74-106 [facility] Comment on above: Performed By: #### P T #### [facility] [address] [address] [address] Tg Fierro Potassium [Moles/Vol] 4.0 mmol/L Normal 3.5-5.1 [facility] Comment on above: Performed By: #### P T #### [facility] [address] [address] [address] Tg Fierro Protein [Mass/Vol] 7.0 g/dL Normal 6.4-8.2 [facility] Comment on above: Performed By: #### P T #### [facility] [address] [address] [address] Tg Fierro Sodium [Moles/Vol] 140 mmol/L Normal 136-145 [facility] Comment on above: Performed By: #### P T #### [facility] [address] [place] [address] Dr. Tg Fierro Urea nitrogen [Mass/Vol] 12.0 mg/dL Normal 7.0-18.0 [facility] Comment on above: Performed By: #### P T #### [facility] [address] [place] [address] Dr. Tg Fierro Urea nitrogen/Creatinine [Mass ratio] 16.2 mg/mg Normal [facility] Comment on above: Performed By: #### P T #### [facility] [address] [place] [address] Dr. Tg Fierro [facility] SED RATE 30 mm/hr Normal <=30 [facility] Comment on above: Performed By: #### S EDR #### [facility] [address] [place] [address] Dr. Tg Fierro CBC AUTO DIFFon 04-15-2022 BASO # 0.1 103/ul Normal 0.0-0.1 [facility] Comment on above: Performed By: #### C BC #### [facility] [address] [place] [address] Dr. Tg Fierro Basophils/100 WBC (Bld) 0.6 % Normal 0.2-2.0 [facility] Comment on above: Performed By: #### C BC #### [facility] [address] [address] [address] Tg Fierro EO # 0.2 103/ul Normal 0.0-0.7 [facility] Comment on above: Performed By: #### C BC #### [facility] [address] [place] [address] Dr. Tg Fierro Eosinophils/100 WBC (Bld) 3.1 % Normal 0.9-7.0 [facility] Comment on above: Performed By: #### C BC #### [facility] [address] [place] [address] Dr. Tg Fierro Erythrocyte distribution width (RBC) [Ratio] 13.6 % Normal 11.0-15.0 [facility] Comment on above: Performed By: #### C BC #### [facility] [address] [place] [address] Dr. Tg Fierro Hematocrit (Bld) [Volume fraction] 42.3 % Normal 36.0-48.0 [facility] Comment on above: Performed By: #### C BC #### [facility] [address] [place] [address] Dr. Tg Fierro Hemoglobin (Bld) [Mass/Vol] 13.2 g/dL Normal 12.0-16.0 [facility] Comment on above: Performed By: #### C BC #### [facility] [address] [place] [address] Dr. Tg Fierro IG # 0.04 10e3/ul Critically high 0.00-0.03 [facility] Comment on above: Performed By: #### C BC #### [facility] [address] [place] [address] Dr. Tg Fierro IG % 0.5 % Normal 0.0-0.5 [facility] Comment on above: Performed By: #### C BC #### [facility] [address] [place] [address] Dr. Tg Fierro LYMPH # 2.5 103/ul Normal 1.2-3.8 [facility] Comment on above: Performed By: #### C BC #### [facility] [address] [place] [address] Dr. Tg Fierro Lymphocytes/100 WBC (Bld) 31.6 % Normal 20.5-60.0 [facility] Comment on above: Performed By: #### C BC #### [facility] [address] [place] [address] Dr. Tg Fierro MANUAL DIFF REQ NO Normal [facility] Comment on above: Performed By: #### C BC #### [facility] [address] [place] [address] Dr. Tg Fierro MCH (RBC) [Entitic mass] 30.3 pg Normal 26.7-34.0 [facility] Comment on above: Performed By: #### C BC #### [facility] [address] [place] [address] Dr. Tg Fierro MCHC (RBC) [Mass/Vol] 31.2 g/dL Normal 29.9-35.2 [facility] Comment on above: Performed By: #### C BC #### [facility] [address] [place] [address] Dr. Tg Fierro MCV (RBC) [Entitic vol] 97.0 fL Normal 81.0-99.0 [facility] Comment on above: Performed By: #### C BC #### [facility] [address] [place] [address] Dr. Tg Fierro MONO # 0.5 103/ul Normal 0.3-0.8 [facility] Comment on above: Performed By: #### C BC #### [facility] [address] [place] [address] Dr. Tg Fierro Monocytes/100 WBC (Bld) 6.3 % Normal 1.7-12.0 [facility] Comment on above: Performed By: #### C BC #### [facility] [address] [place] [address] Dr. Tg Fierro NEUT # 4.5 103/ul Normal 1.4-6.5 [facility] Comment on above: Performed By: #### C BC #### [facility] [address] [place] [address] Dr. Tg Fierro Neutrophils/100 WBC (Bld) 57.9 % Normal 43.0-75.0 [facility] Comment on above: Performed By: #### C BC #### [facility] [address] [place] [address] Dr. Tg Fierro Platelet mean volume (Bld) [Entitic vol] 8.6 fL Critically low 9.5-13.5 [facility] Comment on above: Performed By: #### C BC #### [facility] [address] [place] [address] Dr. Tg Fierro PLT 295 103/ul Normal 150-450 [facility] Comment on above: Performed By: #### C BC #### [facility] [address] [place] [address] Dr. Tg Fierro RBC 4.36 106/ul Normal 4.20-5.40 [facility] Comment on above: Performed By: #### C BC #### [facility] [address] [place] [address] Dr. Tg Fierro WBC 7.8 103/ul Normal 4.0-11.0 [facility] Comment on above: Performed By: #### C BC #### [facility] [address] [place] [address] Dr. Tg Fierro PROF 14(COMP METB)on 022 Albumin [Mass/Vol] 4.5 g/dL Normal 3.4-5.0 [facility] Comment on above: Performed By: #### C MP #### [facility] [address] [place] [address] Dr. Tg Fierro Albumin/Globulin [Mass ratio] 1.5 {ratio} Normal [facility] Comment on above: Performed By: #### C MP #### [facility] [address] [place] [address] Dr. Tg Fierro ALP [Catalytic activity/Vol] 62 U/L Normal 46-116 [facility] Comment on above: Performed By: #### C MP #### [facility] [address] [place] [address] Dr. Tg Fierro ALT [Catalytic activity/Vol] 25 U/L Normal 14-59 [facility] Comment on above: Performed By: #### C MP #### [facility] [address] [address] [address] Tg Fierro Anion gap [Moles/Vol] 10.6 mmol/L Normal [facility] Comment on above: Performed By: #### C MP #### [facility] [address] [address] [address] Tg Fierro AST [Catalytic activity/Vol] 12 U/L Critically low 15-37 [facility] Comment on above: Performed By: #### C MP #### [facility] [address] [address] [address] Tg Fierro Bilirubin [Mass/Vol] 0.5 mg/dL Normal 0.2-1.0 [facility] Comment on above: Performed By: #### C MP #### [facility] [address] [place] [address] Dr. Tg Fierro Calcium [Mass/Vol] 9.8 mg/dL Normal 8.5-10.1 [facility] Comment on above: Performed By: #### C MP #### [facility] [address] [place] [address] Dr. Tg Fierro Chloride [Moles/Vol] 102 mmol/L Normal 98-107 [facility] Comment on above: Performed By: #### C MP #### [facility] [address] [address] [address] Tg Fierro CO2 [Moles/Vol] 31.8 mmol/L Normal 21.0-32.0 [facility] Comment on above: Performed By: #### C MP #### [facility] [address] [address] [address] Tg Fierro Creatinine [Mass/Vol] 0.88 mg/dL Normal 0.55-1.02 [facility] Comment on above: Performed By: #### C MP #### [facility] [address] [address] [address] Tg Fierro EGFR-AF [facility] >60 Normal >=60 [facility] Comment on above: Performed By: #### C MP #### [facility] [address] [address] [address] Tg Fierro EGFR-NON AF [facility] >60 Normal >=60 [facility] Comment on above: Performed By: #### C MP #### [facility] [address] [address] [address] Tg Fierro Globulin (S) [Mass/Vol] 3.1 g/dL Normal [facility] Comment on above: Performed By: #### C MP #### [facility] [address] [address] [address] Tg Fierro Glucose [Mass/Vol] 187 mg/dL Critically high 74-106 [facility] Comment on above: Performed By: #### C MP #### [facility] [address] [address] [address] Tg Fierro Potassium [Moles/Vol] 4.4 mmol/L Normal 3.5-5.1 [facility] Comment on above: Performed By: #### C MP #### [facility] [address] [address] [address] Tg Fierro Protein [Mass/Vol] 7.6 g/dL Normal 6.4-8.2 [facility] Comment on above: Performed By: #### C MP #### [facility] [address] [address] [address] Tg Fierro Sodium [Moles/Vol] 140 mmol/L Normal 136-145 [facility] Comment on above: Performed By: #### C MP #### [facility] [address] [address] [address] Tg Fierro Urea nitrogen [Mass/Vol] 14.0 mg/dL Normal 7.0-18.0 [facility] Comment on above: Performed By: #### C MP #### [facility] [address] [address] [address] Tg Fierro Urea nitrogen/Creatinine [Mass ratio] 15.9 mg/mg Normal [facility] Comment on above: Performed By: #### C MP #### [facility] [address] [place] [address] Dr. Tg Fierro SED RATE WESTERGRENon 2021 SED RATE 5 mm/hr Normal <=30 [facility] Comment on above: Performed By: #### S EDR #### [facility] [address] [place] [address] Dr. Tg Fierro CBC AUTO DIFFon 02-07-2022 BASO # 0.0 103/ul Normal 0.0-0.1 [facility] Comment on above: Performed By: #### P T #### [facility] [address] [place] [address] Dr. Tg Fierro Basophils/100 WBC (Bld) 0.6 % Normal 0.2-2.0 [facility] Comment on above: Performed By: #### P T #### [facility] [address] [place] [address] Dr. Tg Fierro EO # 0.4 103/ul Normal 0.0-0.7 [facility] Comment on above: Performed By: #### P T #### [facility] [address] [place] [address] Dr. Tg Fierro Eosinophils/100 WBC (Bld) 5.4 % Normal 0.9-7.0 [facility] Comment on above: Performed By: #### P T #### [facility] [address] [place] [address] Dr. Tg Fierro Erythrocyte distribution width (RBC) [Ratio] 13.5 % Normal 11.0-15.0 [facility] Comment on above: Performed By: #### P T #### [facility] [address] [place] [address] Dr. Tg Fierro Hematocrit (Bld) [Volume fraction] 39.4 % Normal 36.0-48.0 [facility] Comment on above: Performed By: #### P T #### [facility] [address] [place] [address] Dr. Tg Fierro Hemoglobin (Bld) [Mass/Vol] 12.8 g/dL Normal 12.0-16.0 [facility] Comment on above: Performed By: #### P T #### [facility] [address] [place] [address] Dr. Tg Fierro IG # 0.02 10e3/ul Normal 0.00-0.03 [facility] Comment on above: Performed By: #### P T #### [facility] [address] [place] [address] Dr. Tg Fierro IG % 0.3 % Normal 0.0-0.5 [facility] Comment on above: Performed By: #### P T #### [facility] [address] [place] [address] Dr. Tg Fierro LYMPH # 2.4 103/ul Normal 1.2-3.8 [facility] Comment on above: Performed By: #### P T #### [facility] [address] [place] [address] Dr. Tg Fierro Lymphocytes/100 WBC (Bld) 36.2 % Normal 20.5-60.0 [facility] Comment on above: Performed By: #### P T #### [facility] [address] [place] [address] Dr. Tg Fierro MANUAL DIFF REQ NO Normal [facility] Comment on above: Performed By: #### P T #### [facility] [address] [place] [address] Dr. Tg Fierro MCH (RBC) [Entitic mass] 31.0 pg Normal 26.7-34.0 [facility] Comment on above: Performed By: #### P T #### [facility] [address] [place] [address] Dr. Tg Fierro MCHC (RBC) [Mass/Vol] 32.5 g/dL Normal 29.9-35.2 [facility] Comment on above: Performed By: #### P T #### [facility] [address] [place] [address] Dr. Tg Fierro MCV (RBC) [Entitic vol] 95.4 fL Normal 81.0-99.0 [facility] Comment on above: Performed By: #### P T #### [facility] [address] [place] [address] Dr. Tg Fierro MONO # 0.5 103/ul Normal 0.3-0.8 [facility] Comment on above: Performed By: #### P T #### [facility] [address] [place] [address] Dr. Tg Fierro Monocytes/100 WBC (Bld) 8.0 % Normal 1.7-12.0 [facility] Comment on above: Performed By: #### P T #### [facility] [address] [place] [address] Dr. Tg Fierro NEUT # 3.3 103/ul Normal 1.4-6.5 [facility] Comment on above: Performed By: #### P T #### [facility] [address] [place] [address] Dr. Tg Fierro Neutrophils/100 WBC (Bld) 49.5 % Normal 43.0-75.0 [facility] Comment on above: Performed By: #### P T #### [facility] [address] [place] [address] Dr. Tg Fierro Platelet mean volume (Bld) [Entitic vol] 8.7 fL Critically low 9.5-13.5 [facility] Comment on above: Performed By: #### P T #### [facility] [address] [place] [address] Dr. Tg Fierro PLT 276 103/ul Normal 150-450 [facility] Comment on above: Performed By: #### P T #### [facility] [address] [place] [address] Dr. Tg Fierro RBC 4.13 106/ul Critically low 4.20-5.40 [facility] Comment on above: Performed By: #### P T #### [facility] [address] [place] [address] Dr. Tg Fierro WBC 6.7 103/ul Normal 4.0-11.0 [facility] Comment on above: Performed By: #### P T #### [facility] [address] [place] [address] Dr. Tg Fierro GLYCOHEMOGLOBIN A1Con 2021 ADA RECOMMENDATION SEE BELOW Normal [facility] Comment on above: Result Comment: ADA RECOMMENDED LIMIT 4.0 - 6.0 ADA THERAPEUTIC TARGET < 7.0 ACTION SUGGESTED > 7.0 Performed By: #### A 1C #### [facility] [address] [place] [address] Dr. Tg Fierro Glucose [Mass/Vol] 151 mg/dL Normal [facility] Comment on above: Performed By: #### A 1C #### [facility] [address] [place] [address] Dr. Tg Fierro HbA1c (Bld) [Mass fraction] 6.9 % Critically high 4.5-6.2 [facility] Comment on above: Performed By: #### A 1C #### [facility] [address] [place] [address] Dr. Tg Fierro PROF 14(COMP METB)on 022 Albumin [Mass/Vol] 3.8 g/dL Normal 3.4-5.0 [facility] Comment on above: Performed By: #### P T #### [facility] [address] [place] [address] Dr. Tg Fierro Albumin/Globulin [Mass ratio] 1.3 {ratio} Normal [facility] Comment on above: Performed By: #### P T #### [facility] [address] [place] [address] Dr. Tg Fierro ALP [Catalytic activity/Vol] 43 U/L Critically low 46-116 [facility] Comment on above: Performed By: #### P T #### [facility] [address] [place] [address] Dr. Tg Fierro ALT [Catalytic activity/Vol] 19 U/L Normal 14-59 [facility] Comment on above: Performed By: #### P T #### [facility] [address] [place] [address] Dr. Tg Fierro Anion gap [Moles/Vol] 13.7 mmol/L Normal [facility] Comment on above: Performed By: #### P T #### [facility] [address] [address] [address] Tg Fierro AST [Catalytic activity/Vol] 11 U/L Critically low 15-37 [facility] Comment on above: Performed By: #### P T #### [facility] [address] [place] [address] Dr. Tg Fierro Bilirubin [Mass/Vol] 0.4 mg/dL Normal 0.2-1.0 [facility] Comment on above: Performed By: #### P T #### [facility] [address] [place] [address] Dr. Tg Fierro Calcium [Mass/Vol] 9.1 mg/dL Normal 8.5-10.1 [facility] Comment on above: Performed By: #### P T #### [facility] [address] [place] [address] Dr. Tg Fierro Chloride [Moles/Vol] 104 mmol/L Normal 98-107 [facility] Comment on above: Performed By: #### P T #### [facility] [address] [place] [address] Dr. Tg Fierro CO2 [Moles/Vol] 28.5 mmol/L Normal 21.0-32.0 [facility] Comment on above: Performed By: #### P T #### [facility] [address] [place] [address] Dr. Tg Fierro Creatinine [Mass/Vol] 0.77 mg/dL Normal 0.55-1.02 [facility] Comment on above: Performed By: #### P T #### [facility] [address] [place] [address] Dr. Tg Fierro EGFR-AF [facility] >60 Normal >=60 [facility] Comment on above: Performed By: #### P T #### [facility] [address] [place] [address] Dr. Tg Fierro EGFR-NON AF [facility] >60 Normal >=60 [facility] Comment on above: Performed By: #### P T #### [facility] [address] [place] [address] Dr. Tg Fierro Globulin (S) [Mass/Vol] 3.0 g/dL Normal [facility] Comment on above: Performed By: #### P T #### [facility] [address] [address] [address] Tg Fierro Glucose [Mass/Vol] 124 mg/dL Critically high 74-106 [facility] Comment on above: Performed By: #### P T #### [facility] [address] [address] [address] Tg Fierro Potassium [Moles/Vol] 4.2 mmol/L Normal 3.5-5.1 [facility] Comment on above: Performed By: #### P T #### [facility] [address] [place] [address] Dr. Tg Fierro Protein [Mass/Vol] 6.8 g/dL Normal 6.4-8.2 [facility] Comment on above: Performed By: #### P T #### [facility] [address] [address] [address] Tg Fierro Sodium [Moles/Vol] 142 mmol/L Normal 136-145 [facility] Comment on above: Performed By: #### P T #### [facility] [address] [place] [address] Dr. Tg Fierro Urea nitrogen [Mass/Vol] 12.0 mg/dL Normal 7.0-18.0 [facility] Comment on above: Performed By: #### P T #### [facility] [address] [place] [address] Dr. Tg Fierro Urea nitrogen/Creatinine [Mass ratio] 15.6 mg/mg Normal [facility] Comment on above: Performed By: #### P T #### [facility] [address] [address] [address] Tg [facility] 8 mm/hr Normal <=30 [facility] Comment on above: Performed By: #### C MP #### [facility] [address] [place] [address] Dr. Tg Fierro COVID Quick Testingon 2020 Result Positive [facility] Other Vital Signs Date Time Vital Sign Value Performing Clinician Facility 10-14-2023 09:09-0400 Body temperature 98.6 [degF] Williams SHEPHERD [facility] 10-14-2023 09:09-0400 Diastolic blood pressure 61 mm[Hg] Williams SHEPHERD [facility] 10-14-2023 09:09-0400 Heart rate 80 /min [employer] [facility] 10-14-2023 09:09-0400 Respiratory rate 16 /min Williams SHEPHERD [facility] 10-14-2023 09:09-0400 Systolic blood pressure 115 mm[Hg] Williams SHEPHERD [facility] 08-13-2023 10:47-0500 Blood Pressure Location Renatopower SANTACRUZ [facility] 08-13-2023 10:47-0500 Diastolic blood pressure 62 mm[Hg] Renato SANTACRUZ [facility] 08-13-2023 10:47-0500 Heart rate 82 /min Renato SANTACRUZ [facility] 08-13-2023 10:47-0500 Respiratory rate 16 /min Renato SANTACRUZ [facility] 08-13-2023 10:47-0500 Systolic blood pressure 105 mm[Hg] Renato SANTACRUZ [facility] 08-07-2023 09:48-0500 Body height 160 cm Jayme Perez MD Work Phone: [facility] [employer] 08-07-2023 09:48-0500 Body mass index (BMI) [Ratio] 24.45 kg/m2 Jayme Perez MD Work Phone: [facility] 08-07-2023 09:48-0500 Body weight 62.6 kg Jayme Perez MD Work Phone: [facility] 08-07-2023 09:48-0500 Heart rate 57 /min Jayme Perez MD Work Phone: [facility] 08-07-2023 09:48-0500 SaO2% (BldA) [Mass fraction] 98 % Jayme Perez MD Work Phone: [facility] [employer] 07-25-2023 09:20-0500 Body height 160.02 cm Lou Glover Other [employer] Other 07-25-2023 09:20-0500 Body mass index (BMI) [Ratio] 23.91 kg/m2 Lou Glover Other [employer] Other 07-25-2023 09:20-0500 Body temperature 97.7 [degF] Lou Glover Other [employer] Other 07-25-2023 09:20-0500 Body weight 61.24 kg Lou Glover Other [employer] Other 07-25-2023 09:20-0500 Diastolic blood pressure 74 mm[Hg] Lou Glover Other [employer] Other 07-25-2023 09:20-0500 Respiratory rate 18 /min Lou Glover Other [employer] Other 07-25-2023 09:20-0500 SaO2% (BldA) [Mass fraction] 96 % Lou Glover Other [employer] Other 07-25-2023 09:20-0500 Systolic blood pressure 120 mm[Hg] Lou Glover Other [employer] Other 03-26-2023 13:15-0400 Body height 160.02 cm MD Jayme Perez Work Phone: [facility] 03-26-2023 13:15-0400 Body temperature 98.2 [degF] MD Jayme Perez Work Phone: [facility] 03-26-2023 13:15-0400 Body weight 66 kg MD Jayme Perez Work Phone: [facility] 03-26-2023 13:15-0400 Diastolic blood pressure 71 mm[Hg] MD Jayme Perez Work Phone: [facility] 03-26-2023 13:15-0400 Heart rate 87 /min MD Jayme Perez Work Phone: [facility] 03-26-2023 13:15-0400 Respiratory rate 16 /min MD Jayme Perez Work Phone: [facility] 03-26-2023 13:15-0400 SaO2% (BldA) [Mass fraction] 97 % MD Jayme Perez Work Phone: [facility] 03-26-2023 13:15-0400 Systolic blood pressure 117 mm[Hg] MD Jayme Perez Work Phone: [facility] 05-21-2021 13:15-0500 Body height 160.02 cm Astrid Baker Other [employer] Other 05-21-2021 13:15-0500 Body mass index (BMI) [Ratio] 23.91 kg/m2 Astrid Baker Other [employer] Other 05-21-2021 13:15-0500 Body temperature 97.3 [degF] Astrid Baker Other [employer] Other 05-21-2021 13:15-0500 Body weight 61.24 kg Astrid Baker Other [employer] Other 05-21-2021 13:15-0500 SaO2% (BldA) [Mass fraction] 94 % Astrid Baker Other [employer] Other Encounters Encounter Date Encounter Type Care Provider Facility Start: 12-31-2023 End: 12-31-2023 ambulatory FELICIA FARMER Not Available Start: 10-14-2023 End: 10-15-2023 ambulatory Williams SHEPHERD Facility:[facility] Start: 10-14-2023 End: 10-14-2023 Patient encounter procedure Williams SHEPHERD [facility] [employer] Start: 09-01-2023 End: 09-01-2023 ambulatory FELICIA FARMER Not Available Start: 08-20-2023 [facility] Result Encounter Generic External Data Provider [facility] External Department Unsolicited Start: 08-20-2023 Clinisync Result Encounter Generic External Data Provider [facility] External Department Unsolicited Start: 08-14-2023 End: 08-15-2023 ambulatory Renato SANTACRUZ Facility:[id number] Start: 08-13-2023 End: 08-14-2023 ambulatory Renato SANTACRUZ Facility:[facility] Start: 08-13-2023 End: 08-13-2023 Patient encounter procedure Renato SANTACRUZ [facility] [employer] Start: 08-07-2023 End: 08-07-2023 Office outpatient visit 25 minutes Jayme Perez MD Work Phone: [facility] Comment on above: Chronic diastolic he art failure (CMS/HCC) (Primary Dx); 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 (CMS/HCC); Type 2 diabetes mellitus with stage 3a chronic kidney disease, without long-term current use of insulin (HCC) (CMS/HCC); Stage 3a chronic kidney disease (HCC) (CMS/HCC); Microalbuminuria; Former smoker; 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, adult; 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; Psoriatic arthropathy (CMS/HCC); Gastroesophageal reflux disease without esophagitis Start: 08-07-2023 End: 08-07-2023 ambulatory JAYME PEREZ Not Available Start: 07-30-2023 End: 07-30-2023 ambulatory JAYME PEREZ Not Available Start: 07-25-2023 End: 07-25-2023 ambulatory Lou Glover Other [employer] Other Start: 07-25-2023 Office outpatient vi sit 25 minutes Lou Glover [facility] Start: 07-10-2023 End: 07-10-2023 ambulatory FELICIAZULEIMA FARMER Not Available Start: 07-02-2023 End: 07-02-2023 ambulatory FELICIA D JOSE MIGUELER Not Available Start: 06-25-2023 End: 06-25-2023 ambulatory FELICIA D ZAHLER Not Available Start: 06-18-2023 End: 06-18-2023 ambulatory FELICIA D ZAHLER Not Available Start: 04-07-2023 End: 04-07-2023 ambulatory Williams Shepherd Facility:[facility] Start: 04-07-2023 End: 04-07-2023 Departed Referred MD Jayme Perez Work Phone: [facility] [place] Start: 04-07-2023 End: 04-08-2023 ambulatory MD Jayme Perez Work Phone: [facility] Work Phone: Start: 03-26-2023 End: 03-26-2023 ambulatory Williams Shepherd Facility:[facility] Start: 03-26-2023 End: 03-26-2023 Patient encounter procedure MD Jayme Perez Work Phone: [facility] Work Phone: Start: 03-20-2023 End: 03-21-2023 ambulatory Williams SHEPHERD Facility:[facility] Start: 03-20-2023 End: 03-20-2023 Lab Drop off Williams SHEPHERD [facility] Start: 03-20-2023 End: 03-20-2023 Patient encounter procedure Williams SHEPHERD [facility] Start: 02-03-2023 End: 02-04-2023 ambulatory [...] 05-21-2021 End: 05-21-2021 ambulatory Astrid Olivia Other [place] [facility] Other Start: 05-21-2021 Office outpatient vi sit [...] NB OPHT [address] [place] [address] Felicia Farmer DO [address] [place] [address] [facility] Start: 05-06-2023 Hemoglobin A1c measurement Diabetes: Hemoglobin A1C [facility] Start: 04-07-2023 Abdomen endoscopy OR Cysto/Retro/Stent/Stone/ Holmium Laser (Right) [facility] Start: 03-14-2023 Influenza vaccination Influenza Vaccine (#1) [facility] Start: 1951 Pneumococcal Vaccine: 65+ Years (1 - PCV) Pneumococcal Vaccine: 65+ Years (1 - PCV) [facility] Immunizations Immunization Date Immunization Notes Care Provider Fa cility NEGATED: Highlighted row has not occurred!08-13-2023 influenza virus vaccine, unspecified formulation Renato SANTACRUZ [facility] NEGATED: Highlighted row has not occurred!08-13-2023 SARS-CoV-2 mRNA (tozinameran 5y-11y) vaccine Renato SANTACRUZ [facility] NEGATED: Highlighted row has not occurred!09-21-2019 influenza virus vaccine, live, attenuated, for intranasal use [employer] [facility] NEGATED: Highlighted row has not occurred!08-20-2019 influenza virus vaccine, live, attenuated, for intranasal use [employer] [facility] Payers Date Payer Category Payer Self-pay [id number] [address] [facility] [employer] [facility] [employer] [id number] 2022-Present [address] [address] [place] [address] [id number]. [id number] 2022 Medicare [id number] 2.16.840.1.613181.19 2002 Medicare MEDICARE MEDICAR E PART B [id number] 2002-[place] [address] Medicare [id number]. [id number] 1959 Medicare [id number] 2.16.840.1.246791.19 1959 Unknown [id number] 1946 Unknown [id number] 2.16.840.1.392166.3.579.2.59 3 1946 Unknown [id number] 2.16.840.1.909040.3.579.2.59 3 1946 Unknown [id number] 2.16.840.1.885881.3.579.2.59 3 1946 Unknown [id number] 2.16.840.1.213868.3.579.2.59 3 1946 Unknown [id number] 2.16.840.1.464787.3.579.2.59 3 1946 Unknown [id number] 2.16.840.1.287733.3.579.2.59 3 1946 Unknown [id number] 2.16.840.1.213789.3.579.2.59 3 1946 Unknown [id number] 2.16.840.1.337162.3.579.2.59 3 1946 Unknown [id number] 2.16.840.1.887108.3.579.2.59 3 1946 Unknown [id number] 2.16.840.1.177341.3.579.2.59 3 1946 Unknown [id number] 2.16.840.1.139967.3.579.2.59 3 1946 Unknown [id number] 2.16.840.1.735206.3.579.2.59 3 1946 Unknown [id number] 2.16.840.1.405179.3.579.2.59 3 1946 Unknown [id number] 2.16.840.1.446427.3.579.2.72 7 1946 Unknown [id number] 2.16.840.1.731644.3.579.2.72 7 1946 Unknown [id number] 2.16.840.1.759071.3.579.2.72 7 1946 Unknown [id number] 2.16.840.1.000251.3.579.2.72 7 1946 Unknown [id number] 2.16.840.1.274435.3.579.2.72 7 1946 Unknown [id number] 2.16.840.1.322562.3.579.2.72 7 1946 Unknown [id number] 2.16.840.1.232174.3.579.2.72 7 1946 Unknown [id number] 2.16.840.1.274066.3.579.2.12 59 1946 Unknown [id number] 2.16.840.1.616439.3.579.2.12 59 1946 Unknown [id number] 2.16.840.1.661790.3.579.2.12 59 1946 Unknown [id number] 2.16.840.1.546802.3.579.2.12 59 1946 Unknown [id number] 2.16.840.1.291123.3.579.2.12 59 1946 Unknown [id number] 2.16.840.1.828605.3.579.2.12 59 1946 Unknown [id number] 2.16.840.1.022295.3.579.2.12 59 1946 Unknown [id number] 2.16.840.1.669293.3.579.2.12 59 Unknown [id number] 2.16.840.1.607706.3.579.2.53 1 Unknown [id number] 2.16.840.1.902048.3.579.2.53 1 Social History Date Type Detail Facility Sex Assigned At [employer] Other Start: 02-03-2023 End: 10-14-2023 Tobacco smoking status Ex-smoker (finding) [facility] Tobacco smoking status Never [facility] Start: 12-11-2022 End: 05-22-2023 Sex Assigned At Female [facility] Start: 1945 Sex Assigned At Female [facility] End: 07-14-1986 History of tobacco use Current smoker [facility] End: 07-14-1986 History of tobacco use Cigarette Smoker [facility] Start: 08-07-2023 Tobacco use and exposure Smokeless tobacco non-user [facility] Start: 08-07-2023 End: 08-14-2023 Alcohol intake Ex-drinker (finding) [facility] Start: 12-11-2022 End: 05-22-2023 History of [...] Gender identity Identifies as female gender (finding) [facility] Functional Status Date Assessment Result Facility 10-14-2023 Functional Status N/A [facility] 08-13-2023 Functional Status N/A [facility] Clinical Notes 02-21-2022 to 10-14-2023 [...] include: ?8 oz (237 mL) of milk, wyalkwm-pamrwqetoida-mmvzq milk, and calcium-fortifiedfruit juice. Calcium-fortified means that [...] ?Spinach (cooked), rhubarb, beets, sweet potatoes, and [place] chard. ?Peanuts. ?Potato chips, tajik fries, and baked potatoes with skin on. ?Nuts and nut products. ?Chocolate. If you regularly take a diuretic medicine, make sure to eat at least 1 or 2 servings of fruits or vegetables that are high in potassium each day. These include: ?Avocado. ?Banana. ?[place], prune, carrot, or tomato juice. ?Baked potato. [...] magnesium, fish oil, or vitamin B6. Take tkyb-fcd-mzxujxb and prescription medicines only as told by [...] Casseroles. Pizza. Lasagna. Frozen meals. Potato chips. Vietnamese fries. The items listed above may not [...] provider. Document Revised: 10/10/2022 Document Reviewed: 10/10/2022 [employer] Patient Education 2022 [employer]. Follow Up Care 08/13/2023 10:19:44 With:CORA AGUIAR, Williams Venegas, URL Address: [address] [place] [address] [address] [place] [id number] When: Unknown [facility] 08-13-2023 Hospital Discharge instructions Patient Education [...] including vitamins, herbs, eye drops, creams, and enso-fye-ivptupq medicines. Any problems you or family members [...] provider tells you to take them. ?Taking zrlw-dfr-tbfqhrc medicines, vitamins, herbs, and supplements. Eating and [...] provider. Document Revised: 11/06/2022 Document Reviewed: 03/04/2022 [employer] Patient Education 2022 [employer]. Follow Up Care 08/12/2023 14:37:00 With:ANGELITO AGUIAR, Renato Arzola, URL Address: [facility] [address] , [place] [phone]- [phone] When: Unknown Comments:sched ureteroscopyf/u w/ [facility] scheduled 10/14/23 [facility] [place] 08-07-2023 History of Present illness Narrative Patient [...] 36.1 (H) 9.0 - 11.6 sec Final [facility] INR 08/05/2023 3.67 Final Comment: DESIRED [...] 0.55 - 1.02 mg/dL Final [facility] EGFR-AF [facility] 07/22/2023 >60 >=60 Final [facility] EGFR-NON AF [facility] 07/22/2023 55 (L) >=60 Final BUN CREATININE [...] without long-term current use of insulin (HCC) ([facility]) - metFORMIN (Glucophage) 1000 [...] treats. Stage 3a chronic kidney disease (HCC) ([facility]) New, Chronic problem, unstable, [...] cardiovascular disease. 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 documented in this encounter [facility] 07-25-2023 Evaluation note Encounter Date Diagnosis [...] care as directed rx of steroid and [place], cool mist humidification. May use Tylenol as directed. Immediate eval for signs of respiratory distress, difficulty breathing poor PO intake, signs of dehydration, fever, or other concerning symptoms. Otherwise, follow up with PCP in 2-3 days. Patient verbalizes understanding and is agreeable to treatment plan. Patient sent home in stable condition. [place] Crystal IS Other 08-11-2022 NotePROCEDURE: XR FOOT LT MIN 3 VIEWS COMPARISON: None. HISTORY: Pain in left foot FINDINGS: BONES:No acute fracture or dislocation. Mild enthesopathic spurring of the calcaneus. SOFT TISSUES:Negative. No visible soft tissue swelling. EFFUSION:None visible. OTHER: Negative. IMPRESSION: Mild enthesopathic spurring of the calcaneus Electronically authenticated by: BLANCA ZAVALA Date: 2022-02-21 [facility]ments Appointment Date:07/12/2024 10:45:00 AM Scheduled Provider:Williams SHEPHERD MD Location:[facility] Appointment Type:URO Office Visit [facility] Evaluation + Plan note Future Appointments Appointment Date:07/12/2024 10:45:00 AM Scheduled Provider:Williams SHEPHERD MD Location:[facility] Appointment Type:URO Office Visit Diagnostic Tests Pending * Calculi Analysis [facility]ments Appointment Date:10/14/2023 09:15:00 AM Scheduled Provider:Williams SHEPHERD MD Location:[facility] Appointment Type:URO Office Visit Appointment Date:07/12/2024 10:45:00 AM Scheduled Provider:Williams [facility]ERD [facility] Office Visit [facility] evaluation noteNort Crystal IS Other evaluxtlxg noteNo assessment information available [facility] Work Phone: Evaluation note* Diagnosis Chronic diastolic heart failure ([facility]/HCC)- Primary Chronic diastolic heart failure 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 ([facility]/HCC) Atrial fibrillation Type 2 diabetes mellitus with stage 3a chronic kidney disease, without long-term current use of insulin (HCC) ([facility]/HCC) Stage 3a chronic kidney disease (HCC) ([facility]/HCC) Microalbuminuria Proteinuria Former smoker Personal history of tobacco use, presenting hazards to health 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, 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 Psoriatic arthropathy ([facility]) Psoriatic arthropathy Gastroesophageal reflux disease without esophagitis Esophageal reflux documented in this encounter [facility] N[facility]ative - ReportedNortWVU [facility] [employer] Other History general Narrative - Reported* Type Description Date Medical History Arthritis Medical History diabetes mallitus Surgical History cataract surgery [facility] [employer] Other Hospital course Narrative No data available for this section [facility] Hospital Discharge instructions No data available for this section [facility] [place] note No data available for this section [facility] [employer] Summary Purpose Family History No Family History [...] and content) DATE CREATED AUTHOR 12/20/2022 [facility] [place] [facility] DATE CREATED AUTHOR AUTHOR'S ORGANIZ ATION 06/09/2023 [facility] DATE CREATED AUTHOR AUTHOR'S ORGANIZ ATION 10/15/2023 [facility] DATE CREATED AUTHOR AUTHOR'S ORGANIZ ATION 01/02/2024 [facility] EPIC Patient Care team informatio n (unrecognized section and content) Team Status: Active Member Role Status Dates Jayme Perez MD Primary Care Provider Active Team Status: Inactive Member Role Status Dates Jayme Perez MD Primary Care Provider Active Williams Shepherd MD Attending Provider Active 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 [employer] provides no warranty or guarantee of the accuracy or completeness of information in this document.
[2024-03-17 10:03] LABS: INR 2.96; Prothrombin Time 28.2 sec (9.0-11.6)
== END 2024-03-17 09:24 | disposition home or self-care (01) ==
LOC: LAB 09:25
PROVIDERS: PCP Family Medicine; Visit Provider Family Medicine
DX: I48.0 Paroxysmal atrial fibrillation (principal); Z79.01 Long term (current) use of anticoagulants; Z51.81 Encounter for therapeutic drug level monitoring
CPT/HCPCS: 36415; 85610

== ENCOUNTER 2024-03-29 08:50 | Outpatient (OUT) | payer MEDICARE, SELFPAY ==
[2024-03-29 09:17] LABS: Basophils Percent Auto 0.6 % (0.2-2.0); Eosinophils Absolute Auto 0.4 10^3/uL (0.0-0.7); Eosinophils Percent Auto 5.1 % (0.9-7.0); Hematocrit 41.5 % (36.0-48.0); Hemoglobin 13.3 g/dL (12.0-16.0); Immature Granulocytes Abs Auto 0.01 10^3/uL (0.00-0.03); Immature Granulocytes Pct Auto 0.1 % (0.0-0.5); Lymphocytes Absolute Auto 2.9 10^3/uL (1.2-3.8); Lymphocytes Percent Auto 39.4 % (20.5-60.0); Mean Corpuscular Hemoglobin 30.9 pg (26.7-34.0); Mean Corpuscular Volume 96.5 fL (81.0-99.0); Mean Platelet Volume 8.7 fL (9.5-13.5); Monocytes Absolute Auto 0.4 10^3/uL (0.3-0.8); Monocytes Percent Auto 6.1 % (1.7-12.0); Neutrophils Absolute Auto 3.5 10^3/uL (1.4-6.5); Neutrophils Percent Auto 48.7 % (43.0-75.0); Platelet Count 291 10^3/uL (150-450); Red Cell Distribution Width 14.3 % (11.0-15.0); White Blood Count 7.2 10^3/uL (4.0-11.0)
[2024-03-29 09:25] LABS: Erythrocyte Sedimentation Rate 23 mm/hr (<=30)
[2024-03-29 10:36] LABS: Alanine Aminotransferase 24 U/L (14-59); Albumin Globulin Ratio 1.4; Albumin Level 4.1 g/dL (3.4-5.0); Alkaline Phosphatase 52 U/L (46-116); Anion Gap 14.4; Aspartate Amino Transferase 17 U/L (15-37); BUN Creatinine Ratio 11.7; Bilirubin Total 0.6 mg/dL (0.2-1.0); Calcium 9.3 mg/dL (8.5-10.1); Carbon Dioxide 28.5 mmol/L (21.0-32.0); Chloride 103 mmol/L (98-107); Estimated GFR (African America >60 (>=60); Estimated GFR (Non-African Ame >60 (>=60); Glucose 113 mg/dL (74-106); Potassium 3.9 mmol/L (3.5-5.1); Sodium 142 mmol/L (136-145); Total Protein 7.1 g/dL (6.4-8.2)
== END 2024-03-29 08:51 | disposition home or self-care (01) ==
LOC: LAB 08:52
PROVIDERS: PCP Family Medicine; Visit Provider Internal Medicine Rheumatology
DX: L40.59 Other psoriatic arthropathy (principal); Z79.899 Other long term (current) drug therapy
CPT/HCPCS: 36415; 80053; 85025; 85652

== ENCOUNTER 2024-04-13 09:08 | Outpatient (OUT) | payer MEDICARE, SELFPAY ==
[2024-04-13 09:54] LABS: Prothrombin Time 27.7 sec (9.0-11.6)
[2024-04-13 10:19] LABS: Estimated Average Glucose 134 mg/dL; Glycohemoglobin A1C 6.3 % (4.5-6.2)
== END 2024-04-13 09:09 | disposition home or self-care (01) ==
LOC: LAB 09:10
PROVIDERS: PCP Family Medicine; Visit Provider Family Medicine
DX: Z51.81 Encounter for therapeutic drug level monitoring (principal); Z79.01 Long term (current) use of anticoagulants; I48.0 Paroxysmal atrial fibrillation; E11.9 Type 2 diabetes mellitus without complications
CPT/HCPCS: 36415; 83036; 85610

== ENCOUNTER 2024-04-16 13:10 | Outpatient (OUT) | payer MEDICARE, SELFPAY ==
--- OUTSIDE RECORDS SUMMARY | 2024-04-16 13:23 | XMS_ITS | CCD ---
Author Organization [facility] Care Team Providers Care Bacteriologist Medical Name Role Phone Astrid Baker Unavailable CAYETANO, [...] Unavailable HEMEYER ., DR MCKINNEY Admdiallo Unavailable MONTEIRO, DR CRUM Attending Unavailable CAYETANO, [...] able MD Jayme Perez Primary Care Provider [phone] MD Williams Shepherd Attending Provider Lou Glover Unavailable Jayme Perez MD Primary Care Provider Jayme Perez MD Unavailable [phone] Renato SANTACRUZ Attending Unavailable COOKWilliams Attending Unavailable COOK, Williams P Attending Unavailable COOKWilliams P Admitting Unavailable COOKWilliams P Attending Unavailable Renato SANTACRUZ Attending Unavailable COOK, Williams P Attending Unavailable COOK, Williams P Attending Unavailable COOKWilliams Attending Unavailable FELICIA FARMER Attending Unavailable JAYME PERZE Attending Unavailable FELICIA FARMER Attending Unavailable HEMEJAYME TAMAYO Attending Unavailable FELICIA FARMER Attending Unavailable FELICIA FARMER Attending Unavailable FELICIA FARMER Attending Unavailable FELICIA FARMER Attending Unavailable MD Jayme Perez Primary Care Provider [phone] MD Radames Monteiro Attending Provider Radames Motneiro Admitting Unavailable Radames Monteiro Unavailable Jayme Perez Primary Care Unavailable Felicia Farmer DO Unavailable Renato Santacruz MD Unavailable Radames Monteiro MD Unavailable Allergies Allergy Classification Reported Allergen(s) Allergy Type Date of Onset Reaction(s) Facility (13 sources) Ciprofloxacin; Translations: [ciprofloxacin] Drug Allergy 02-19-20 22 anaphylaxis, Unknown (qualifier value) [facility] (1 source) sulfaSALAzine Drug Allergy rash [employer] Other (1 source) Ciprofloxacin Drug Allergy 03-30-20 13 [facility] Repository (2 sources) Ketorolac; Translations: [Toradol] Drug Allergy 03-30-20 13 [facility] Repository (2 sources) metroNIDAZOLE; Translations: [MetroGel] Drug Allergy 03-30-20 13 [facility]ository (1 source) NSAIDs Drug allergy (disorder) 03-30-20 13 [facility] (2 sources) pioglitazone; Translations: [Actos] Drug Allergy 03-30-20 13 [facility]ository (1 source) Sulfonamides (Antibiotic) Drug allergy (disorder) 03-30-20 13 [facility] Repository (11 sources) Ketorolac; Translations: [ketorolac] Drug Allergy 03-26-20 23 Unknown (qualifier value), Nausea (finding) [facility] Comment on above: Severe (12 sources) Latex; Translations: [Latex] Drug allergy 01-07-20 Blister of skin AND/OR mucosa (finding) [facility] (9 sources) Non-steroidal anti-inflammatory agent; Translations: [NSAIDs] Drug allergy 02-19-20 22 Unknown (qualifier value) [facility] (13 sources) pioglitazone; Translations: [pioglitazone] Drug Allergy 01-07-20 23 Unknown (qualifier value) [facility] (5 sources) Sulfonamides (Antibiotic); Translations: [sulfa drugs] Drug allergy Unknown (qualifier value) [facility] (9 sources) metroNIDAZOLE; Translations: [Metronidazole] Drug Allergy 02-19-20 22 Redness of Skin [facility] (3 sources) Sulfonamides (Antibiotic); Translations: [Sulfa (Sulfonamide Antibiotics)] Allergy to substance 03-26-20 [facility] (3 sources) NSAIDS (Non-Steroidal Anti-Inflamma; Translations: [NSAIDS (Non-Steroidal Anti-Inflamma] Allergy to substance 03-26-20 Anaphylaxis, Anaphylaxis, rash [facility] (1 source) Non-steroidal anti-inflammatory agent Drug allergy [facility] [employer] Other (5 sources) Substance with sulfonamide structure and antibacterial mechanism of action (substance) Drug allergy 02-19-20 [facility] [employer] Other (4 sources) Ketorolac Allergy to substance 01-07-20 Nausea Only [facility] (4 sources) Hydrocodone Bit-Homatrop Mbr Propensity to adverse reactions 08-07-19 Dizziness [facility] (4 sources) Medical Adhesive Remover Drug Allergy 02-19-20 [facility] (1 source) Ciprofloxacin Drug Allergy 07-25-19 [facility] Repository (1 source) Ketorolac Drug Allergy 03-26-20 [facility] Repository (1 source) pioglitazone Drug Allergy 03-26-20 [facility] Repository Medications Current Medications Medication Drug Class(es) Dates Sig (Normalized) Sig (Original) acarbose 100 mg oral tablet (14 sources) alpha-Glucosidase Inhibitor Start: 08-17-2019 End: 02-03-2024 acarbose (Precose) 100 MG tablet Indications: Type 2 diabetes mellitus with stage 3a chronic kidney disease, without long-term current use of insulin (HCC) ([facility]/HCC) Take 1 tablet (100 mg) by mouth in the morning and 1 tablet (100 mg) at noon and 1 tablet (100 mg) in the evening. Take with meals. 270 tablet 1 08/07/2023 Active Start: 08-17-2019 acarbose Oral, TID, Refills(s) 0 Start Date: 08/17/19 Status: Ordered Acarbose Active acetaminophen 325 mg oral ta blet (8 sources) Start: 03-26-2023 Acetaminophen (Tylenol) 325 mg Tablet Active 1000 MG PO Twice daily March 26, 2023 12:00am Start: 02-03-2023 take 1 mg by mouth e very six hours Tylenol Extra Strength 500 mg oral tablet mg tab(s), Oral, q6hr Start Date: 02/03/23 Status: Ordered take 1 tablet by valdo th every six hours as needed acetaminophen (Tylenol) 325 MG tablet Take 325 mg by mouth every 6 (six) hours if needed. 2 tables as needed orally every 6 hours Active acetaminophen 325 mg / oxyCODONE hydrochloride 5 mg oral tablet (4 sources) Opioid Agonist Start: 08-12-2023 take 1 tablet by mouth every six hours as needed oxyCODONE-acetaminophen (Percocet) 5-325 MG tablet Take 1 tablet by mouth every 6 (six) hours if needed 08/12/2023 Active [id number] 200 actuat albuterol 0.09 mg/actuat metered dose inhaler (6 sources) beta2-Adrene rgic Agonist Start: 07-16-2023 End: 07-15-2024 albuterol HFA 90 mcg/act inhaler Indications: Chronic obstructive pulmonary disease with acute exacerbation (CMS/HCC) Inhale 2 puffs in the morning and 2 puffs at noon and 2 puffs in the evening and 2 puffs before bedtime. 18 g 07/16/2023 07/15/2024 Active Start: 05-21-2021 Start: 05-21-2021 take 2 puff(s) by in halation every four hours as needed Albuterol Sulfate HFA 108 (90 Base) MCG/ACT 2 puffs as needed Inhalation every 4 hrs May, Not-Taking/PRN Ascorbic Acid / Zinc Sulfate (1 source) Vitamin C Start: 03-26-2023 take 1 tablet by mouth once daily Ascorbic Acid-Zinc Sulfate (Vitamin C Plus Zinc) 200-100 mg Tablet Active 1 TAB PO every day at noon March 26, 2023 12:00am aspirin 81 mg oral tablet (4 sources) Platelet Aggregation Inhibitor, Nonsteroidal Anti-inflammatory Drug Start: 08-17-2019 take 1 mg by mouth once daily aspirin 81 mg oral tablet mg tab(s), Oral, Daily, Refills(s) 0 Start Date: 08/17/19 Status: Ordered calcium citrate 950 mg oral tablet (10 sources) Start: 03-26-2023 take 200 mg by mouth three times daily Calcium Citrate Active 200 MG PO Three times daily March 26, 2023 12:00am Start: 08-17-2019 take 250 mg by mouth [...] 1 tablet orally three times a day. Active cephalexin 500 mg oral capsule (3 sources) Cephalosporin Antibacterial Start: 08-12-2023 End: 08-20-2023 take 1 capsule by mouth in the morning, then take 1 capsule by mouth in the evening, then take 1 capsule by mouth at bedtime cephalexin (Keflex) 500 MG capsule Take 500 mg by mouth in the morning and 500 mg in the evening and 500 mg before bedtime. 08/12/2023 Active cholecalciferol 0.125 mg oral tablet (2 sources) Vitamin D Start: 03-26-2023 take 1 tablet by mouth once daily Cholecalciferol (Vitamin D3) (Vitamin D3) 125 mcg (5,000 unit) Tablet Active 5000 UNIT PO every day at noon March 26, 2023 12:00am cinnamon bark 500 mg oral capsule (6 sources) Start: 03-26-2023 take 1 capsule by mouth twice daily Cinnamon Bark (Cinnamon) 500 mg Capsule Active 1000 MG PO Twice daily March 26, 2023 12:00am Cinnamon Preparation (4 sources) Non-Standardized Food Allergenic Extract Start: 09-19-2020 take 1000 mg by mouth once daily cinnamon 1,000 mg, Oral, Daily Start Date: 09/19/20 Status: Ordered Start: 09-19-2020 take 1 mg by mouth twice daily cinnamon mg, Oral, BID Start Date: 09/19/20 Status: Ordered Cyanocobalamin-Liver Extract (Vitamin J16-Xrqcn) Tablet (2 sources) Start: 03-26-2023 take 1 tablet by mouth once daily Cyanocobalamin-Liver Extract (Vitamin I87-Bbcow) Tablet Active 1 TAB PO every day at noon March 26, 2023 12:00am Start: 03-26-2023 take 1 tablet by valdo th once daily Cyanocobalamin-Liver Extract (Vitamin K21-Qrzkv) Tablet Active 1 TAB PO every day at noon March 25, 2023 11:00pm dextromethorphan hydrobromide 1.5 mg/ml / pyrilamine maleate 1.5 mg/ml oral solution (1 source) Uncompetitive E-uxkeyz-U-aspartate Receptor Antagonist, Sigma-1 Agonist Start: 07-25-2023 take 10 mL by mouth every eight hours [place] DM 7.5-7.5 MG/5ML 10 mL Orally every 8 hours for 5 days Jul, Active esomeprazole 20 mg oral tablet (10 sources) Proton Pump Inhibitor Start: 08-17-2019 take 20 mg by mouth once daily Esomeprazole Magnesium Active 20 MG PO every day at noon March 26, 2023 12:00am Start: 08-17-2019 Nexium Oral, D aily, Refills(s) 0 Start Date: 08/17/19 Status: Ordered take 1 capsule by [facility] once daily esomeprazole (NexIUM) [address] capsule Take 20 mg by mouth 1 (one) time each day. 1 capsule orally once a day Active ferrous sulfate 134 mg oral tablet (2 sources) Start: 03-26-2023 take 30 mg by mouth once Ferrous Sulfate Active 30 MG PO every Friday, , Friday, and Sunday March 26, 2023 12:00am 4 ml golimumab 12.5 mg/ml injection (6 sources) Tumor Necrosis Factor Sergey Start: 03-26-2023 Golimumab (Simponi Aria) 12.5 mg/mL Solution Active 12.5 MG IV EVERY 8 WEEKS March 26, 2023 12:00am may 13 Start: 08-20-2019 Simponi Aria m g/kg, IV, q4wk, Refills(s) 0 Start Date: 08/20/19 Status: Ordered Insulin Glargine (2 sources) Insulin Analog Lantus Active metFORMIN hydrochloride 1000 mg oral tablet (14 sources) Biguanide Start: 08-17-2019 End: 02-03-2024 take 1 tablet by mouth in the morning metFORMIN (Glucophage) 1000 MG tablet Indications: Type 2 diabetes mellitus with stage 3a chronic kidney disease, without long-term current use of insulin (HCC) (CMS/HCC) Take 1 tablet (1,000 mg) by mouth in the morning and 1 tablet (1,000 mg) in the evening. Take with meals. 180 tablet 1 08/07/2023 Active Start: 08-17-2019 metformin Oral , Refills(s) 0 Start Date: 08/17/19 Status: Ordered metFORMIN HCl Ac tive methotrexate 2.5 mg/ml oral solution (8 sources) Folate Analog Metabolic Inhibitor Start: 03-26-2023 take 1.5 mg by mouth every week Methotrexate Active 1.5 MG PO every week March 26, 2023 12:00am Start: 08-17-2019 take 5 mg by mouth every week methotrexate 5 mg, Oral, qWeek, Refills(s) 0 Start Date: 08/17/19 Status: Ordered Start: 08-17-2019 methotrexate R efills(s) 0 Start Date: 08/17/19 Status: Ordered Methotrexate Sod ium Active [facility] [place] (4 sources) Start: 09-19-2020 [facility] [place] See Instructions, Oral Start Date: 09/19/20 Status: Ordered Start: 09-19-2020 [facility] [place] ironchlate Start Date: 09/19/20 Status: Ordered Multi Vitamins oral tablet (4 sources) Start: 09-19-2020 take 1 tablet by mouth once daily Multi Vitamins oral tablet 1 tab(s), Oral, Daily, Refill(s) 0 Start Date: 09/19/20 Status: Ordered Start: 09-19-2020 Multi Vitamins oral tablet Oral, Daily, Refill(s) 0 Start Date: 09/19/20 Status: Ordered ondansetron 4 mg oral tablet (4 sources) Serotonin-3 Receptor Antagonist Start: 08-13-2023 ondansetron 4 mg Tab mg tab(s), Oral, As Directed, Refills(s) 0 Start Date: 08/13/23 Status: Ordered Start: 08-12-2023 take 1 tablet by valdo th every eight hours as needed for nausea ondansetron ODT (Zofran-ODT) 4 MG disintegrating tablet Take 4 mg by mouth every 8 (eight) hours if needed for nausea 08/12/2023 Active predniSONE 2.5 mg oral tablet (8 sources) Start: 03-26-2023 take 2.5 mg by mouth once daily at bedtime Prednisone Active 2.5 MG PO Daily at bedtime March 26, 2023 12:00am Start: 08-17-2019 take 5 mg by mouth once daily predniSONE 5 mg, Oral, Daily, Refills(s) 0 Start Date: 08/17/19 Status: Ordered Start: 08-17-2019 predniSONE Ora l, Daily, Refills(s) 0 Start Date: 08/17/19 Status: Ordered predniSONE Not-T aking/PRN Spacer/Aero-Holding Chambers ([employer] Leonor Spacer Adult) misc (4 sources) Start: 07-16-2023 Spacer/Aero-Ho lding Chambers ([facility] Leonor [place]acer Adult[place] [facility] [place]: Chronic obstructive pulmonary disease with acute exacerbation (CMS/HCC) 2 puffs 4 (four) times a day as needed (sob and cough) 1 each 07/16/2023 Active Start: 07-16-2023 Spacer/Aero-Ho lding Chambers ([employer] Leonor Spacer Adult) misc Indications: Chronic obstructive pulmonary disease with acute exacerbation (CMS/HCC) 2 puffs 4 (four) times a day as needed (sob and cough) 1 each 0 07/16/2023 Active tamsulosin hydrochloride 0.4 mg oral capsule (3 sources) alpha-Adrenergic Sergey Start: 08-13-2023 End: 08-20-2023 take 1 mg by mouth once daily tamsulosin 0.4 mg Cap mg cap(s), Oral, Daily, X 7 day(s), Refills(s) 0 Start Date: 08/13/23 Stop Date: 08/20/23 Status: Ordered Start: 08-12-2023 take 1 capsule by [facility] every twenty-four hours in the morning tamsulosin (Flomax) 0.4 MG 24 hr capsule Take 0.4 mg by mouth in the morning. 08/12/2023 Active vitamin B12 (8 sources) Vitamin B12 Start: 08-17-2019 take 3000 mg by mouth once daily Vitamin B12 3,000 mg, Oral, Daily, Refills(s) 0 Start Date: 08/17/19 Status: Ordered Start: 08-17-2019 Vitamin B12 Re fills(s) 0 Start Date: 08/17/19 Status: Ordered take 1 tablet under the tongue once daily Cyanocobalamin (Vitamin B12) [address] 3,000 mcg under the tongue 1 (one) time each day. Active Vitamin D3 (4 sources) Start: 08-17-2019 Vitamin D3 1,0 00 unit(s), Daily, Refills(s) 0 Start Date: 08/17/19 Status: Ordered Start: 08-17-2019 Vitamin D3 Alexandra ly, Refills(s) 0 Start Date: 08/17/19 Status: Ordered warfarin sodium 4 mg oral tablet (14 sources) Vitamin K Antagonist Start: 10-23-2023 End: 10-22-2024 warfarin (Coumadin) 4 MG tablet Indications: 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 (CMS/HCC) Take 1 tablet in the evening for a total of 5mg 90 tablet 1 10/23/2023 10/22/2024 Active Start: 08-18-2023 End: 10-22-2024 warfarin (Coumadin) 1 MG tab let Indications: 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 (CMS/HCC) Take 1 tablet in the evening for a total of 5mg 90 tablet 1 10/23/2023 10/22/2024 Active Start: 08-18-2023 End: 08-17-2024 warfarin (Coumadin) [...] 4 MG PO Daily at bedtime March 26, 2023 12:00am Zinc Sulfate-Vitamin C (Vitamin C Plus Zinc) [...] of uterine body 08-17-2019 Episodic Cardiac dysrhythmias (13 sources) 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; Translations: [Atrial fibrillation] Onset: 10-14-2022 Chronic Cataract (12 sources) Bilateral age-related nuclear cataracts; Translations: [Age-related nuclear cataract, bilateral] Onset: 05-19-2023 Resolved: 12-31-2023 05-19-2023 Chronic Chronic kidney disease (6 sources) Chronic kidney disease stage 3A ; Translations: [Stage 3a chronic kidney disease (HCC) (CMS/HCC)] Onset: 12-12-2022 07-30-2023 Chronic Congestive heart failure; nonhypertensive (7 sources) Chronic diastolic (congestive) heart failure; Translations: [Chronic diastolic heart failure] Onset: 09-05-2022 08-18-2023 Chronic Diabetes mellitus with complications (10 sources) Type 2 diabetes mellitus with diabetic chronic kidney disease; Translations: [Type 2 diabetes mellitus] Onset: 08-09-2022 Chronic Diverticulosis and diverticulitis (4 sources) 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; Translations: [Diverticulosis of large intestine without perforation or abscess without bleeding] Onset: 12-12-2022 12-12-2022 Chronic Esophageal disorders (6 sources) Gastroesophageal reflux disease without esophagitis; Translations: [Gastro-esophageal reflux disease without esophagitis] Onset: 12-12-2022 08-18-2023 Chronic Glaucoma (4 sources) Preglaucoma, unspecified, bilateral; Translations: [Preglaucoma, unspecified] Onset: 05-19-2023 05-19-2023 Chronic Heart valve disorders (5 sources) Nonrheumatic aortic (valve) stenosis; Translations: [Aortic valve disorders] Onset: 09-05-2022 12-12-2022 Chronic Immunity disorders (4 sources) Immunosuppression; Translations: [Immunodeficiency, unspecified] Onset: 12-12-2022 12-12-2022 Chronic Menopausal disorders (4 sources) Disorder associated with menstruation AND/OR menopause; Translations: [Menopausal and female climacteric states] Onset: 12-12-2022 12-12-2022 Chronic Mood disorders (4 sources) Depressive disorder 08-17-2019 Chronic Nutritional deficiencies (4 sources) Vitamin D deficiency; Translations: [Vitamin D deficiency, unspecified] Onset: 12-12-2022 12-12-2022 Chronic Osteoporosis (5 sources) Osteoporosis; Translations: [Age-related osteoporosis without current pathological fracture] Onset: 12-12-2022 12-12-2022 Chronic Other aftercare (1 source) prison (current) use of anticoagulants; Translations: [CUSTODIAL CURRNT USE ANTICOAGULANTS] Onset: 12-11-2022 Episodic Other aftercare (5 sources) Encounter for therapeutic drug level monitoring; Translations: [ENC THERAPEUTC DRUG LEVL MONITORING] Onset: 10-18-2022 Episodic Other aftercare (1 source) Other assisted (current) drug therapy; Translations: [OTH TAX EXAMINER CURRENT DRUG THERAPY] Onset: 10-31-2022 Episodic Other and ill-defined heart disease (4 sources) Cardiomegaly; Translations: [CARDIOMEGALY] Onset: 09-02-2022 Chronic Other and ill-defined heart disease (4 sources) Ventricular hypertrophy ; Translations: [Cardiomegaly] Onset: 12-12-2022 12-12-2022 Chronic Other diseases of kidney and ureters (2 sources) Urinary tract obstruction; Translations: [Hydronephrosis with renal and ureteral calculous obstruction] Onset: 08-13-2023 Episodic Other inflammatory condition of skin (5 sources) Other psoriatic arthropathy; Translations: [OTHER PSORIATIC ARTHROPATHY] Onset: 09-25-2022 Chronic Other inflammatory condition of skin (6 sources) Psoriatic arthritis; Translations: [Arthropathic psoriasis, unspecified] Onset: 12-12-2022 08-18-2023 Chronic Other nutritional; endocrine; and metabolic disorders (4 sources) Body mass index 25-29 - overweight 09-18-2021 Episodic Residual codes; unclassified (4 sources) H/O: anticoagulant therapy 09-21-2019 Episodic Spondylosis; intervertebral disc disorders; other back problems (8 sources) Degeneration of lumbar intervertebral disc; Translations: [Other intervertebral disc degeneration, lumbar region] Onset: 12-12-2022 12-12-2022 Chronic Unclassified (4 sources) Drug therapy finding 08-20-2019 Unclassified (2 sources) Obstructive hydronephrosis 08-13-2023 Viral infection (1 source) Other specified viral diseases Episodic Past or Other Problems Problem Classification Problem Date Documented Da te Episodic/Chronic Diabetes mellitus without complication (9 sources) Diabetes mellitus; Translations: [Type 1 diabetes mellitus without complication] Onset: 05-19-2023 Resolved: 04-07-2024 08-17-2019 Chronic Genitourinary symptoms and ill-defined conditions (14 sources) Increased frequency of urination; Translations: [Nocturia] Onset: 12-12-2022 09-19-2020 Episodic Heart valve disorders (9 sources) Cardiac murmur, unspecified; Translations: [Heart murmur] Onset: 09-05-2022 08-17-2019 Episodic Immunizations and screening for infectious disease (1 source) Contact with and (suspected) exposure to other viral communicable diseases Onset: 05-21-2021 Resolved: 05-21-2021 Episodic Inflammation; infection of eye (except that caused by tuberculosis or sexually transmitteddisease) (4 sources) Blepharitis of upper and lower eyelids of bilateral eyes; Translations: [Unspecified blepharitis right eye, upper and lower eyelids] Onset: 05-19-2023 05-19-2023 Episodic Mood disorders (4 sources) Mood disorders Onset: 05-22-2023 05-22-2023 Nutritional deficiencies (4 sources) Iron deficiency; Translations: [Iron deficiency] Onset: 12-12-2022 12-12-2022 Episodic Other aftercare (1 source) termite control technician (current) use of oral hypoglycemic drugs; Translations: [CUSTODIAL USE ORAL HYPOGLYCEMIC DX] Onset: 08-12-2022 Episodic Other aftercare (1 source) termite control technician (current) use of insulin; Translations: [CUSTODIAL CURRENT USE OF INSULIN] Onset: 02-13-2022 Episodic Other aftercare (8 sources) Long-term current use of anticoagulant; Translations: [prison (current) use of anticoagulants] Onset: 07-21-2023 Episodic Other bone disease and musculoskeletal deformities (4 sources) Osteopenia; Translations: [Other specified disorders of bone density and structure, unspecified site] Onset: 12-12-2022 12-12-2022 Episodic Other connective tissue disease (4 sources) Pain in left foot; Translations: [PAIN IN LEFT FOOT] Onset: 02-20-2022 Episodic Other eye disorders (4 sources) Dry eyes; Translations: [Dry eye syndrome of bilateral lacrimal glands] Onset: 05-19-2023 05-19-2023 Episodic Other nutritional; endocrine; and metabolic disorders (4 sources) Overweight; Translations: [Overweight] Onset: 12-12-2022 Resolved: 07-30-2023 07-30-2023 Episodic Pneumonia (except that caused by tuberculosis or sexually transmitted disease) (1 source) Pneumonia, unspecified organism Onset: 05-21-2021 Resolved: 05-21-2021 Episodic Residual codes; unclassified (6 sources) Body mass index 20-24 - normal; Translations: [Body mass index (BMI) 24.0-24.9, adult] Onset: 07-30-2023 07-30-2023 Episodic Residual codes; unclassified (4 sources) Sleep disorder; Translations: [Sleep disorder, unspecified] Onset: 12-12-2022 12-12-2022 Episodic Screening and history of mental health and substance abuse codes (10 sources) Ex-smoker; Translations: [Personal history of nicotine dependence] Onset: 03-27-2017 Resolved: 08-07-2023 09-21-2019 Episodic Unclassified (1 source) Unclassified (1 source) Contact with and (suspected) exposure to covid-19 Z20.822 Viral infection (1 source) COVID-19 Onset: 05-21-2021 Resolved: 05-21-2021 Results Test Name Value Interpretation Reference Range Facil ity SRMCOH PROTHROMBIN TIME INR W/O COUMon 04-13-2024 Interpretation and review of laboratory results Abnormal [facility] PT Coag (PPP) [Time] 27.7 s High [facility] TBH INR 2.90 [facility] Comment on above: DESIRED INR: 2.0-3.0 CONDITIONS NOT LISTED BELOW 2.5-3.5 FOR PROSTHETIC HEART VALVE REPLACEMENT 2.5-3.5 RECURRENT THROMBOSIS CLINISYNC [facility] Magnesium [Mass/volume] in S fartun or PlasmaOrdered By: Radames Monteiro on 03-31-2024 Magnesium [Mass/Vol] 1.9 mg/dL Normal 1.9-2.[address] [facility] Comment on above: Result Comment: PERF ORMED BY: [place] [address] PATHOLOGIST MANUFACTURING MAINTENANCE MANAGER BERNIE GRAYSON M.D. Performed By: #### Joe Alcantara, PHOS #### [facility] [address] [place] [address] Phosphate [Mass/volume] in S fartun or PlasmaOrdered By: Radames Monteiro on 03-31-2024 Phosphate [Mass/Vol] 3.7 mg/dL Normal 2.5-4.[address] [facility] Comment on above: Performed By: #### Joe Alcantara, PHOS #### [facility] [address] [place] [address] Ambulatory Visit Summaryon 0 10-14-2023 Ambulatory Visit Summary MCKINLEYBOBBIRA Hazel :1945 Visit Date:10/14/2023 Ambulatory Visit Instructions Your [...] Venegas Where: [facility] Patient Educationon 10-14-19 Patient Education Nephrology [...] Spinach (cooked), rhubarb, beets, sweet potatoes, and Gabonese chard. ? Peanuts. ? Potato chips, citizen of [place] fries, and baked potatoes with skin on. ? Nuts and nut products. ? Chocolate. ? If you regularly take a diuretic medicine, make sure to eat at least 1 or 2 servings of fruits or vegetables that are high in potassium each day. These include: ? Avocado. ? Banana. ? [place], prune, carrot, or tomato juice. ? Baked [...] fish oil, or vitamin B6. ? Take ycgp-xeg-dppcpxg and prescription medicines only as told by your health care provider. These include supplements. What foods sh (more content not included)... Normal [facility] Urology Office/Clinic Noteon 10-14-2023 Urology Office/Clinic Note Chief Complaint Pt is here for 3 month w/ met w/u & KUB HPI Staff 6 month follow up w/KUB Pt canceled Cysto/R retro/possible: ureteroscopy, laser, basket, stent placement 04/07/23 due to passing stones Pt was then seen at [facility] on 08/12/23 due to abdominal pain, [...] with voice recognition artificial intelligence software, specifically Sport Ngin, AlertaPhone and or Vanu Coverage. Substitutions may have occurred due to the inherent limitations of voice recognition and artificial intelligence software. 1. Ureteral stone with hydronephrosis (N13.2: Hydronephrosis with renal and ureteral calculous obstruction) H ER visit 08/12/23 due to R flank [...] bilateral nephrolithiasis. -See #1 3. Anticoagulated (Z79.01: prison (current) use of anticoagulants) Warfarin for A-fib. [...] a KUB Follow-up With When Contact Information Williams SHEPHERD MD, URL [address] [place] [id number] Additional Instructions: 06/2024 with KUB Patient Education Dietary Guidelines to Help Prevent Kidney Stones I, Charisse Rutherford, personally scribed for Dr. Shepherd on 10/14/2023 09:33:56. Electronically signed by (more content not included)... Normal [facility] Comment on above: Result Comment: Elec tronically Signed By: Williams SHEPHERD MD\.br\Date and Time Signed: 10/14/23 09:38 EDT\.br\Electronically Co-Signed By: Charisse Rutherford\.br\Date and Time Co-Signed: 10/14/23 09:34 EDT RAD - MISCon 10-10-2023 RAD - MISC [id number] .00TIFF Normal [facility] Lab Reportson 08-27-2023 Lab Reports [id number]#[address] [facility] Lab Reportson 08-25-2023 Lab Reports [id number]#[address] [facility] Lab Reports [id number]#1 .00TIFF Normal [facility] Lab Reportson 08-22-2023 Lab Reports [id number] .00TIFF Normal [facility] Lab Reportson 08-21-2023 Lab Reports [id number]#1 .00TIFF Normal [facility] Lab Reports [id number]#1 .00TIFF Normal [facility] ALL BUNon 08-20-2023 Urea nitrogen [Mass/Vol] 12.0 mg/dL 7.0 - 18.0 mg/dL [facility] ALL CARBON DIOXIDEon CO2 [Moles/Vol] 30.1 mmol/L 21.0 - 32.0 mmol/L [facility] ALL CHLORIDEon 08-20-2023 Chloride [Moles/Vol] 104 mmol/L 98 - 107 mmol/L [facility] ALL PHOSPHOROUSon 08-20-2023 Phosphate [Mass/Vol] 4.1 mg/dL 2.6 - 4.7 mg/dL [facility] ALL SODIUMon 08-20-2023 Sodium [Moles/Vol] 141 mmol/L 136 - 145 mmol/L [facility] ALL URIC ACIDon 08-20-2023 Urate [Mass/Vol] 4.4 mg/dL 2.6 - 6.0 mg/dL [facility] CALCIUMon 08-20-2023 Calcium [Mass/Vol] 9.1 mg/dL 8.5 - 10.1 mg/dL [facility] No Panel Informationon 08-20 [facility] CREATININEon 08-20-2023 Creatinine [Mass/Vol] 0.86 mg/dL 0.55 - 1.02 mg/dL [facility] GFR/1.73 sq M.predicted CKD-EPI (S/P/Bld) [Vol rate/Area] >60 60 - PINF [facility] EGFR-NON AF FIJIAN >60 60 - PINF [facility] Consent for Procedure/Surger yon 08-15-2023 Consent for Procedure/Surgery [id number]#1 .00TIFF Normal [facility] ED Note-Physicianon 08-15-19 ED Note-Physician [id number]#1. 00TIFF Normal [facility] Lab Reportson 08-15-2023 Lab Reports [id number]#1. 00TIFF Normal [facility] Lab Reports [id number]#1 .00TIFF Normal [facility] Lab Reports [id number]#[address] [facility] Operative Reporton Operative Report [id number]#[address] [facility] RAD - CT Reporton 08-15-2023 RAD - CT Report [id number]#1. 00TIFF [facility] Ambulatory Visit Summaryon 0 08-13-2023 Ambulatory [...] AGUIAR, Williams Venegas Where: [facility] Normal [address] 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 \.br\ Any problems you or [...] you to take them.\.br\ ? \.br\ Taking aqxl-phd-trlskkc medicines, vitamins, herbs, and supplements.\.br \ Eating [...] including vitamins, herbs, eye drops, creams, and hbhw-hnf-xmaoddg medicines. ? Any problems you or family [...] tells you to take them. ? Taking ydoe-bfb-uoacrsl medicines, vitamins, herbs, and supplements. Eating and [...] the pieces (more content not included)... Normal [facility] Urology Office/Clinic Noteon 08-13-2023 Urology Office/Clinic Note Chief Complaint Patient is here for follow up to [facility] ER HPI Staff Patient is here for f/u to [facility] ER on 08/12/23 due to distal [...] Hydronephrosis with renal and ureteral calculous obstruction) H ER visit 08/12/23 due to R flank [...] pain) See #1 4. 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 States she did not take this last night. Advised pt not to take her dose today either. Follow-up With When Contact Information ANGELITO AGUIAR, Renato Arzola, URL [facility] [address], [place] [phone] Additional Instructions: sched ureteroscopy f/u w/ [facility] scheduled 10/14/23 Patient Education Laser Therapy for Kidney Stones I, Amy Gallagher, personally scribed for Dr. Santacruz on 08/13/2023 11:35:03. . Documentation recorded by the scribe, Amy Gallagher, accurately reflects the services(s) I performed and decisions made by me. Authenticated by Dr. Santacruz on 08/13/2023 11:37:02. Problem List/Past Medical History Ongoi (more content not included)... Normal [facility] Comment on above: Result Comment: Elec tronically Signed By: Renato SANTACRUZ MD\.br\Date and Time Signed: 08/13/23 11:37 EST\.br\Electronically Co-Signed By: Amy Gallagher\.br\Date and Time Co-Signed: 08/13/23 11:35 EST COVID/FLU/RSV RT-PCRon 07-25 SARS-CoV-2 (COVID-19) RNA TREASURE+probe Ql (Unsp spec) Negative [employer] Other COVID/FLU/RSV RT-PCR [facility] [employer] Other COVID/FLU/RSV RT-PCR Positive [facility] [employer] Other Calculus Analysison 03-27-20 23 Calcium oxalate dihydrate Infrared spectroscopy (Stone) [Mass fraction] 100 % Invalid Interpretation Code [facility] Comment on above: Performed By: #### 1 [id number] ####[facility] [address] [place] [address] Color (Stone) Roper Invalid Interpretation Code [facility] Comment on above: Performed By: #### 1 [id number] ####[id number] [place] [address] Composition Comment Invalid Interpretation Code [facility] Comment on above: Result Comment: Perc entage (Represents the % composition) Performed By: #### 1 [id number] ####[facility] [address] [place] [address] Disclaimer: Comment Invalid Interpretation Code [facility] Comment on above: Result Comment: This test was developed and its performance characteristics determined by [employer]. It has not been cleared or approved by the Food and Drug Administration. Performed at: [address] [id number] PhD Silvestre Esquivel Performed By: #### 1 [id number] ####[facility] [address] [place] [address] Laboratory comment Noam (Report) Comment Invalid Interpretation Code [facility] Comment on above: Result Comment: Coco goode questions regarding Calculi Analysis contact [facility] at: [phone]. Performed By: #### 1 [id number] ####[address] [place] [address] Please Note: Comment Invalid Interpretation Code [facility] Comment on above: Result Comment: Calc javier report will follow via computer, mail or printing machine mechanic delivery. Performed By: #### 1 [id number] ####[facility] [address] [place] [address] Size (Stone) [Entitic vol] 6x4 Invalid Interpretation Code [facility] Comment on above: Result Comment: Dejuan le piece received. Performed By: #### 1 [id number] ####[place] [address] [place] [id number] Specimen source subject Nom Comment Invalid Interpretation Code [facility] Comment on above: Result Comment: Not provided Performed By: #### 1 [id number] ####[facility] [address] [place], [place] [id number] Stone Photo Comment Invalid Interpretation Code [facility] Comment on above: Result Comment: Phot ograph will follow under a separate cover Performed By: #### 1 [id number] ####[address] [place] [address] Weight (Stone) 49 mg Invalid Interpretation Code [facility] Comment on above: Performed By: #### 1 [id number] ####[place] [id number] Lab Reportson 03-27-2023 Lab Reports [id number]#1. 00CD:127 Normal [facility] Activated partial thrombopla stin time (aPTT) in platelet poor plasma by coagulation aOrdered By: Williams Shepherd on 03-26-2023 aPTT Coag (PPP) [Time] 35.9 s 25.1-36.5 [facility] Comment on above: A hematocrit value g reater than 55% may lead to inaccurate results in coagulation testing. Patients having hematocrit values >55% require a special collection tube for coagulation studies. Please contact the laboratory at [phone] for redraw instructions. Basophils Auto (Bld) [#/Vol] Ordered By: Williams Shepherd on 03-26-2023 Basophils (Bld) [#/Vol] 0.0 10*3/uL 0.0-0.2 [facility] Basophils/100 WBC Auto (Bld) Ordered By: Williams Shepherd on 03-26-2023 Basophils/100 WBC (Bld) 0.8 % . [facility] Calcium [Mass/volume] in Ser um or PlasmaOrdered By: Williams Shepherd on 03-26-2023 Calcium [Mass/Vol] 10.0 mg/dL 8.6-10.3 [facility] Carbon dioxide, total [Moles /volume] in Serum or PlasmaOrdered By: Williams Shepherd on 03-26-2023 CO2 [Moles/Vol] 30.0 mmol/L 21.0-31.0 [facility] Chloride [Moles/volume] in S fartun or PlasmaOrdered By: Williams Shepherd on 03-26-2023 Chloride [Moles/Vol] 104 mmol/L 98-[address] [facility] Creatinine [Mass/volume] in Serum or PlasmaOrdered By: Williams Shepherd on 03-26-2023 Creatinine [Mass/Vol] 0.85 mg/dL 0.60-1.20 [facility] Eosinophils Auto (Bld) [#/Vo l]Ordered By: Williams Shepherd on 03-26-2023 Eosinophils (Bld) [#/Vol] 0.3 10*3/uL 0.0-0.45 [facility] Eosinophils/100 WBC Auto (Bl d)Ordered By: Williams Shepherd on 03-26-2023 Eosinophils/100 WBC (Bld) 4.3 % . [facility] Erythrocyte distribution wid th Auto (RBC) [Ratio]Ordered By: Williams Shepherd on 03-26-2023 Erythrocyte distribution width (RBC) [Ratio] 14.8 % 11.9-15.3 [facility] Glucose [Mass/volume] in Ser um or PlasmaOrdered By: Williams Shepherd on 03-26-2023 Glucose [Mass/Vol] 111 mg/dL 70-100 [facility] Comment on above: ADA recommended refe rence rangeRandom Glucose Reference Range is dependent on time and content of last meal. Glucose of more than 200 mg/dL in a nonstressed, ambulatory subject supports the diagnosis of Diabetes Mellitus. Hematocrit Auto (Bld) [Volum e fraction]Ordered By: Williams Shepherd on 03-26-2023 Hematocrit (Bld) [Volume fraction] 40.3 % 34.0-46.4 [facility] Hemoglobin [Mass/volume] in BloodOrdered By: Williams Shepherd on 03-26-2023 Hemoglobin (Bld) [Mass/Vol] 13.3 g/dL 11.8-15.4 [facility] INR in Platelet poor plasma by Coagulation assayOrdered By: Williams Shepherd on 03-26-2023 INR Coag (PPP) [Relative time] 2.3 {INR} [facility] Comment on above: INR Therapeutic Rang e [...] RBC Auto (Bld) [#/Vol] 5.9 10*3/uL 3.8-11.6 [facility] Lymphocytes Auto (Bld) [#/Vo l]Ordered By: Williams Shepherd on 03-26-2023 Lymphocytes (Bld) [#/Vol] 2.2 10*3/uL 1.00-4.8 [facility] Lymphocytes/100 WBC Auto (Bl d)Ordered By: Williams Shepherd on 03-26-2023 Lymphocytes/100 WBC (Bld) 36.9 % . [facility] MCH Auto (RBC) [Entitic mass ]Ordered By: Williams Shepherd on 03-26-2023 MCH (RBC) [Entitic mass] 31.1 pg 24.7-34.3 [facility] MCHC Auto (RBC) [Mass/Vol]Or dered By: Williams Shepherd on 03-26-2023 MCHC (RBC) [Mass/Vol] 32.9 g/dL 32.0-35.0 [facility] MCV Auto (RBC) [Entitic vol] Ordered By: Williams Shepherd on 03-26-2023 MCV (RBC) [Entitic vol] 94.4 fL 80-100 [facility] Monocytes Auto (Bld) [#/Vol] Ordered By: Williams Shepherd on 03-26-2023 Monocytes (Bld) [#/Vol] 0.5 10*3/uL 0.0-0.8 [facility] Monocytes/100 WBC Auto (Bld) Ordered By: Williams Shepherd on 03-26-2023 Monocytes/100 WBC (Bld) 7.8 % . [facility] Neutrophils Auto (Bld) [#/Vo l]Ordered By: Williams Shepherd on 03-26-2023 Neutrophils (Bld) [#/Vol] 3.0 10*3/uL 1.8-7.7 [facility] Neutrophils/100 WBC Auto (Bl d)Ordered By: Williams Shepherd on 03-26-2023 Neutrophils/100 WBC (Bld) 50.2 % . [facility] No Panel InformationOrdered By: Williams Shepherd on 03-26-2023 Estimated GFR (CKD-EPI) > 60.0 mL/Min [facility] Creatinine Clearance (Chem N/A [facility] Nucleated erythrocytes [Pres ence] in Blood by Automated countOrdered By: Williams Shepherd on 03-26-2023 Nucleated RBC Auto Ql (Bld) 0.3 /100{WBC} 0-0.5 [facility] Platelet mean volume Auto (B ld) [Entitic vol]Ordered By: Williams Shepherd on 03-26-2023 Platelet mean volume (Bld) [Entitic vol] 7.1 fL 6.3-10.7 [facility] Platelets Auto (Bld) [#/Vol] Ordered By: Williams Shepherd on 03-26-2023 Platelets (Bld) [#/Vol] 363 10*3/uL 150-450 [facility] Potassium [Moles/volume] in Serum or PlasmaOrdered By: Williams Shepherd on 03-26-2023 Potassium [Moles/Vol] 5.0 mmol/L 3.5-5.1 [facility] Prothrombin time (PT)Ordered By: Williams Shepherd on 03-26-2023 PT Coag (PPP) [Time] 26.6 s 9.0-12.[address] [facility] Comment on above: A hematocrit value g reater than 55% may lead to inaccurate results in coagulation testing. Patients having hematocrit values >55% require a special collection tube for coagulation studies. Please contact the laboratory at [phone] for redraw instructions. RBC Auto (Bld) [#/Vol]Ordere d By: Williams Shepherd on 03-26-2023 RBC (Bld) [#/Vol] 4.27 10*6/uL 3.60-5.00 [facility] Serum or plasma anion gap de terminationOrdered By: Williamschilo Shepherd on 03-26-2023 Anion gap [Moles/Vol] 13.0 mmol/L 6.0-15.0 [facility] Sodium [Moles/volume] in Ser um or PlasmaOrdered By: Williams Shepherd on 03-26-2023 Sodium [Moles/Vol] 142 mmol/L 136-145 [facility] Urea nitrogen [Mass/volume] in Serum or PlasmaOrdered By: Williamschilo Shepherd on 03-26-2023 Urea nitrogen [Mass/Vol] 12 mg/dL 7-25 [facility] WBC Auto (Bld) [#/Vol]Ordere d By: Williams Cora on 03-26-2023 WBC (Bld) [#/Vol] 5.9 10*3/uL 3.8-11.6 [facility] Consultation Noteon 03-17-20 Consultation Note [id number] .00CD:127 [facility] Lab Reportson 02-12-2023 Lab Reports [id number] .00CD:127 [facility] RAD - MISCon 02-12-2023 RAD - MISC [id number] .00CD:127 [facility] RAD - CT Reporton 02-05-2023 RAD - CT Report [id number] .00CD:127 [facility] RAD - MISCon 02-05-2023 RAD - MISC [id number] .00CD:127 Normal [facility] Ambulatory Visit Summaryon 0 02-03-2023 Ambulatory Visit Summary WILDA SEN :1945 Visit Date:02/03/2023 Ambulatory Visit Instructions Your Diagnosis Kidney stones Tests Performed XR Abdomen 1 View -- Results Pending -- Please visit your patient portal for your results or contact your primary care physician. Your Care Team Attending Physician - Williams SHEPHERD MD Primary Care Physician - JAYME PEREZ MD This Is Your Medications List Contact prescribing [...] Williams SHEPHERD MD Where: [facility] Patient Educationon 02-04-20 23 Patient Education [...] these instructions at home: Medicines ? Take tmgx-csj-hsqvjna and prescription medicines only as told by [...] month follow up w/ CT scan done @[facility] on 01/15/23. CT scan shows partially [...] Information CORA AGUIAR, Williams Venegas, URL [address] [place] [id number] Additional Instructions: Patient Education Kidney Stones I, Fanny Bowen, personally scribed for Dr. Shepherd on 02/03/2023 12:04:03. . Documentation recorded by the scribe, Fanny Bowen, accurately reflects the services(s) I performed and decisions made by me. Authenticated by Dr. Shepherd on 02/03/2023 12:37:35. Portions of this record may have been created with voice recognition artificial intelligence software, specifically [employer], [employer] and or Vanu Coverage. Substitutions may have occurred due to the inherent limitations of voice recognition and artificial intelligence software. 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 Normal [facility] Comment on above: Result Comment: Elec tronically Signed By: Williams SHEPHERD MD\.br\Date and Time Signed: 02/03/23 12:39 EDT\.br\Electronically Co-Signed By: Fanny Bowen\.br\Date and Time Co-Signed: 02/03/23 12:04 EDT PROTIMEon 12-02-2022 INR Coag (PPP) [Relative time] 3.62 {INR} Normal [facility] Comment on above: Performed By: #### P T #### [facility] [address] [place] [address] [address] Tg Fierro INR GUIDELINES SEE BELOW Normal [facility] Comment on above: Result Comment: LAURENCE RED INR: 2.0 - 3.0 CONDITIONS NOT LISTED BELOW 2.5 - 3.5 FOR PROSTHETIC HEART VALVE REPLACEMENT 2.5 - 3.5 RECURRENT THROMBOSIS Performed By: #### P T #### [facility] [address] [address] [address] Tg Fierro PT Coag (PPP) [Time] 35.7 s Critically high 9.0-11.6 [facility] Comment on above: Performed By: #### P T #### [facility] [address] [address] [address] Tg Fierro PROTIMEon 11-11-2022 INR Coag (PPP) [Relative time] 1.90 {INR} Normal [facility] Comment on above: Performed By: #### P T #### [facility] [address] [place] [address] Dr. Tg Fierro INR GUIDELINES SEE BELOW Normal [facility] Comment on above: Result Comment: LAURENCE RED INR: 2.0 - 3.0 CONDITIONS NOT LISTED BELOW 2.5 - 3.5 FOR PROSTHETIC HEART VALVE REPLACEMENT 2.5 - 3.5 RECURRENT THROMBOSIS Performed By: #### P T #### [facility] [address] [place] [address] Dr. Tg Fierro PT Coag (PPP) [Time] 19.4 s Critically high 9.0-11.6 [facility] Comment on above: Performed By: #### P T #### [facility] [address] [place] [address] Dr. Tg Fierro CBC AUTO DIFFon 10-25-2022 BASO # 0.0 103/ul Normal 0.0-0.1 [facility] Comment on above: Performed By: #### P T #### [facility] [address] [place] [address] Dr. Tg Fierro Basophils/100 WBC (Bld) 0.5 % Normal 0.2-2.0 [facility] Comment on above: Performed By: #### P T #### [facility] [address] [place] [address] Dr. Tg Fierro EO # 0.2 103/ul Normal 0.0-0.7 [facility] Comment on above: Performed By: #### P T #### [facility] [address] [place] [address] Dr. Tg Fierro Eosinophils/100 WBC (Bld) 2.7 % Normal 0.9-7.0 [facility] Comment on above: Performed By: #### P T #### [facility] [address] [place] [address] Dr. Tg Fierro Erythrocyte distribution width (RBC) [Ratio] 13.4 % Normal 11.0-15.0 [facility] Comment on above: Performed By: #### P T #### [facility] [address] [place] [address] Dr. Tg Fierro Hematocrit (Bld) [Volume fraction] 40.7 % Normal 36.0-48.0 [facility] Comment on above: Performed By: #### P T #### [facility] [address] [place] [address] Dr. Tg Fierro Hemoglobin (Bld) [Mass/Vol] 13.2 g/dL Normal 12.0-16.0 [facility] Comment on above: Performed By: #### P T #### [facility] [address] [place] [address] Dr. Tg Fierro IG # 0.03 10e3/ul Normal 0.00-0.03 [facility] Comment on above: Performed By: #### P T #### [facility] [address] [place] [address] Dr. Tg Fierro IG % 0.5 % Normal 0.0-0.5 [facility] Comment on above: Performed By: #### P T #### [facility] [address] [place] [address] Dr. Tg Fierro LYMPH # 2.1 103/ul Normal 1.2-3.8 [facility] Comment on above: Performed By: #### P T #### [facility] [address] [place] [address] Dr. Tg Fierro Lymphocytes/100 WBC (Bld) 34.9 % Normal 20.5-60.0 [facility] Comment on above: Performed By: #### P T #### [facility] [address] [place] [address] Dr. Tg Fierro MANUAL DIFF REQ NO Normal [facility] Comment on above: Performed By: #### P T #### [facility] [address] [place] [address] Dr. Tg Fierro MCH (RBC) [Entitic mass] 30.5 pg Normal 26.7-34.0 [facility] Comment on above: Performed By: #### P T #### [facility] [address] [place] [address] Dr. Tg Fierro MCHC (RBC) [Mass/Vol] 32.4 g/dL Normal 29.9-35.2 [facility] Comment on above: Performed By: #### P T #### [facility] [address] [place] [address] Dr. Tg Fierro MCV (RBC) [Entitic vol] 94.0 fL Normal 81.0-99.0 [facility] Comment on above: Performed By: #### P T #### [facility] [address] [place] [address] Dr. Tg Fierro MONO # 0.4 103/ul Normal 0.3-0.8 [facility] Comment on above: Performed By: #### P T #### [facility] [address] [place] [address] Dr. Tg Fierro Monocytes/100 WBC (Bld) 7.1 % Normal 1.7-12.0 [facility] Comment on above: Performed By: #### P T #### [facility] [address] [place] [address] Dr. Tg Fierro NEUT # 3.2 103/ul Normal 1.4-6.5 [facility] Comment on above: Performed By: #### P T #### [facility] [address] [place] [address] Dr. Tg Fierro Neutrophils/100 WBC (Bld) 54.3 % Normal 43.0-75.0 [facility] Comment on above: Performed By: #### P T #### [facility] [address] [place] [address] Dr. Tg Fierro Platelet mean volume (Bld) [Entitic vol] 8.7 fL Critically low 9.5-13.5 [facility] Comment on above: Performed By: #### P T #### [facility] [address] [place] [address] Dr. Tg Fierro PLT 295 103/ul Normal 150-450 [facility] Comment on above: Performed By: #### P T #### [facility] [address] [place] [address] Dr. Tg Fierro RBC 4.33 106/ul Normal 4.20-5.40 [facility] Comment on above: Performed By: #### P T #### [facility] [address] [place] [address] Dr. Tg Fierro WBC 5.9 103/ul Normal 4.0-11.0 [facility] Comment on above: Performed By: #### P T #### [facility] [address] [place] [address] Dr. Tg Fierro PROF 14(COMP METB)on 023 Albumin [Mass/Vol] 3.8 g/dL Normal 3.4-5.0 [facility] Comment on above: Performed By: #### C MP #### [facility] [address] [place] [address] Dr. Tg Fierro Albumin/Globulin [Mass ratio] 1.2 {ratio} Normal [facility] Comment on above: Performed By: #### C MP #### [facility] [address] [place] [address] Dr. Tg Fierro ALP [Catalytic activity/Vol] 49 U/L Normal 46-116 [facility] Comment on above: Performed By: #### C MP #### [facility] [address] [place] [address] Dr. Tg Fierro ALT [Catalytic activity/Vol] 21 U/L Normal 14-59 [facility] Comment on above: Performed By: #### C MP #### [facility] [address] [place] [address] Dr. Tg Fierro Anion gap [Moles/Vol] 13.3 mmol/L Normal [facility] Comment on above: Performed By: #### C MP #### [facility] [address] [place] [address] Dr. Tg Fierro AST [Catalytic activity/Vol] 14 U/L Critically low 15-37 [facility] Comment on above: Performed By: #### C MP #### [facility] [address] [place] [address] Dr. Tg Fierro Bilirubin [Mass/Vol] 0.5 mg/dL Normal 0.2-1.0 [facility] Comment on above: Performed By: #### C MP #### [facility] [address] [address] [address] Tg Fierro Calcium [Mass/Vol] 9.5 mg/dL Normal 8.5-10.1 [facility] Comment on above: Performed By: #### C MP #### [facility] [address] [address] [address] Tg Fierro Chloride [Moles/Vol] 104 mmol/L Normal 98-107 [facility] Comment on above: Performed By: #### C MP #### [facility] [address] [address] [address] Tg Fierro CO2 [Moles/Vol] 29.3 mmol/L Normal 21.0-32.0 [facility] Comment on above: Performed By: #### C MP #### [facility] [address] [address] [address] Tg Fierro Creatinine [Mass/Vol] 0.93 mg/dL Normal 0.55-1.02 [facility] Comment on above: Performed By: #### C MP #### [facility] [address] [address] [address] Tg Fierro EGFR-AF FIJIAN >60 Normal >=60 [facility] Comment on above: Performed By: #### C MP #### [facility] [address] [address] [address] Tg Fierro EGFR-NON AF FIJIAN 59 mL/min/1.73m2 Critically low >=60 [facility] Comment on above: Performed By: #### C MP #### [facility] [address] [address] [address] Tg Fierro Globulin (S) [Mass/Vol] 3.2 g/dL Normal [facility] Comment on above: Performed By: #### C MP #### [facility] [address] [address] [address] Tg Fierro Glucose [Mass/Vol] 186 mg/dL Critically high 74-106 [facility] Comment on above: Performed By: #### C MP #### [facility] [address] [address] [address] Tg Fierro Potassium [Moles/Vol] 4.6 mmol/L Normal 3.5-5.1 [facility] Comment on above: Performed By: #### C MP #### [facility] [address] [address] [address] Tg Fierro Protein [Mass/Vol] 7.0 g/dL Normal 6.4-8.2 [facility] Comment on above: Performed By: #### C MP #### [facility] [address] [address] [address] Tg Fierro Sodium [Moles/Vol] 142 mmol/L Normal 136-145 [facility] Comment on above: Performed By: #### C MP #### [facility] [address] [address] [address] Tg Fierro Urea nitrogen [Mass/Vol] 15.0 mg/dL Normal 7.0-18.0 [facility] Comment on above: Performed By: #### C MP #### [facility] [address] [address] [address] Tg Fierro Urea nitrogen/Creatinine [Mass ratio] 16.1 mg/mg Normal [facility] Comment on above: Performed By: #### C MP #### [facility] [address] [address] [address] [facility] 9 mm/hr Normal <=30 [facility] Comment on above: Performed By: #### C MP #### [facility] [address] [address] [address] Tg Fierro PROTIMEon 10-14-2022 INR Coag (PPP) [Relative time] 1.94 {INR} Normal [facility] Comment on above: Performed By: #### P T #### [facility] [address] [address] [address] Tg Fierro INR GUIDELINES SEE BELOW Normal [facility] Comment on above: Result Comment: LAURENCE RED INR: 2.0 - 3.0 CONDITIONS NOT LISTED BELOW 2.5 - 3.5 FOR PROSTHETIC HEART VALVE REPLACEMENT 2.5 - 3.5 RECURRENT THROMBOSIS Performed By: #### P T #### [facility] [address] [place] [address] Dr. Tg Fierro PT Coag (PPP) [Time] 19.8 s Critically high 9.0-11.6 [facility] Comment on above: Performed By: #### P T #### [facility] [address] [place] [address] Dr. Tg Fierro CBC AUTO DIFFon 09-24-2022 BASO # 0.1 103/ul Normal 0.0-0.1 [facility] Comment on above: Performed By: #### P T #### [facility] [address] [place] [address] Dr. Tg Fierro Basophils/100 WBC (Bld) 0.7 % Normal 0.2-2.0 [facility] Comment on above: Performed By: #### P T #### [facility] [address] [place] [address] Dr. Tg Fierro EO # 0.3 103/ul Normal 0.0-0.7 [facility] Comment on above: Performed By: #### P T #### [facility] [address] [place] [address] Dr. Tg Fierro Eosinophils/100 WBC (Bld) 3.6 % Normal 0.9-7.0 [facility] Comment on above: Performed By: #### P T #### [facility] [address] [place] [address] Dr. Tg Fierro Erythrocyte distribution width (RBC) [Ratio] 13.4 % Normal 11.0-15.0 [facility] Comment on above: Performed By: #### P T #### [facility] [address] [place] [address] Dr. Tg Fierro Hematocrit (Bld) [Volume fraction] 38.4 % Normal 36.0-48.0 [facility] Comment on above: Performed By: #### P T #### [facility] [address] [place] [address] Dr. Tg Fierro Hemoglobin (Bld) [Mass/Vol] 12.7 g/dL Normal 12.0-16.0 [facility] Comment on above: Performed By: #### P T #### [facility] [address] [place] [address] Dr. Tg Fierro IG # 0.05 10e3/ul Critically high 0.00-0.03 [facility] Comment on above: Performed By: #### P T #### [facility] [address] [address] [address] Tg Fierro IG % 0.7 % Critically high 0.0-0.[address] [facility] Comment on above: Performed By: #### P T #### [facility] [address] [place] [address] Dr. Tg Fierro LYMPH # 2.6 103/ul Normal 1.2-3.8 [facility] Comment on above: Performed By: #### P T #### [facility] [address] [place] [address] Dr. Tg Fierro Lymphocytes/100 WBC (Bld) 34.2 % Normal 20.5-60.0 [facility] Comment on above: Performed By: #### P T #### [facility] [address] [place] [address] Dr. Tg Fierro MANUAL DIFF REQ NO Normal [facility] Comment on above: Performed By: #### P T #### [facility] [address] [place] [address] Dr. Tg Fierro MCH (RBC) [Entitic mass] 31.2 pg Normal 26.7-34.0 [facility] Comment on above: Performed By: #### P T #### [facility] [address] [place] [address] Dr. Tg Fierro MCHC (RBC) [Mass/Vol] 33.1 g/dL Normal 29.9-35.2 [facility] Comment on above: Performed By: #### P T #### [facility] [address] [place] [address] Dr. Tg Fierro MCV (RBC) [Entitic vol] 94.3 fL Normal 81.0-99.0 [facility] Comment on above: Performed By: #### P T #### [facility] [address] [address] [address] Tg Fierro MONO # 0.6 103/ul Normal 0.3-0.8 [facility] Comment on above: Performed By: #### P T #### [facility] [address] [address] [address] Tg Fierro Monocytes/100 WBC (Bld) 8.1 % Normal 1.7-12.0 [facility] Comment on above: Performed By: #### P T #### [facility] [address] [place] [address] Dr. Tg Fierro NEUT # 4.1 103/ul Normal 1.4-6.5 [facility] Comment on above: Performed By: #### P T #### [facility] [address] [place] [address] Dr. Tg Fierro Neutrophils/100 WBC (Bld) 52.7 % Normal 43.0-75.0 [facility] Comment on above: Performed By: #### P T #### [facility] [address] [place] [address] Dr. Tg Fierro Platelet mean volume (Bld) [Entitic vol] 8.7 fL Critically low 9.5-13.5 [facility] Comment on above: Performed By: #### P T #### [facility] [address] [place] [address] Dr. Tg Fierro PLT 278 103/ul Normal 150-450 [facility] Comment on above: Performed By: #### P T #### [facility] [address] [address] [address] Tg Fierro RBC 4.07 106/ul Critically low 4.20-5.[address] [facility] Comment on above: Performed By: #### P T #### [facility] [address] [place] [address] Dr. Tg Fierro WBC 7.7 103/ul Normal 4.0-11.0 [facility] Comment on above: Performed By: #### P T #### [facility] [address] [address] [address] Tg Fierro PROF 14(COMP METB)on 023 Albumin [Mass/Vol] 3.9 g/dL Normal 3.4-5.0 [facility] Comment on above: Performed By: #### C MP #### [facility] [address] [address] [address] Tg Fierro Albumin/Globulin [Mass ratio] 1.4 {ratio} Normal [facility] Comment on above: Performed By: #### C MP #### [facility] [address] [address] [address] Tg Fierro ALP [Catalytic activity/Vol] 59 U/L Normal 46-116 [facility] Comment on above: Performed By: #### C MP #### [facility] [address] [place] [address] Dr. Tg Fierro ALT [Catalytic activity/Vol] 21 U/L Normal 14-59 [facility] Comment on above: Performed By: #### C MP #### [facility] [address] [address] [address] Tg Fierro Anion gap [Moles/Vol] 10.8 mmol/L Normal [facility] Comment on above: Performed By: #### C MP #### [facility] [address] [place] [address] Dr. Tg Fierro AST [Catalytic activity/Vol] 9 U/L Critically low 15-37 [facility] Comment on above: Performed By: #### C MP #### [facility] [address] [address] [address] Tg Fierro Bilirubin [Mass/Vol] 0.3 mg/dL Normal 0.2-1.0 [facility] Comment on above: Performed By: #### C MP #### [facility] [address] [place] [address] Dr. Tg Fierro Calcium [Mass/Vol] 9.1 mg/dL Normal 8.5-10.1 [facility] Comment on above: Performed By: #### C MP #### [facility] [address] [address] [address] Tg Fierro Chloride [Moles/Vol] 104 mmol/L Normal 98-107 [facility] Comment on above: Performed By: #### C MP #### [facility] [address] [address] [address] Tg Fierro CO2 [Moles/Vol] 28.3 mmol/L Normal 21.0-32.0 [facility] Comment on above: Performed By: #### C MP #### [facility] [address] [place] [address] Dr. Tg Fierro Creatinine [Mass/Vol] 0.86 mg/dL Normal 0.55-1.02 [facility] Comment on above: Performed By: #### C MP #### [facility] [address] [place] [address] Dr. Tg Fierro EGFR-AF FIJIAN >60 Normal >=60 [facility] Comment on above: Performed By: #### C MP #### [facility] [address] [place] [address] Dr. Tg Fierro EGFR-NON AF FIJIAN >60 Normal >=60 [facility] Comment on above: Performed By: #### C MP #### [facility] [address] [place] [address] Dr. Tg Fierro Globulin (S) [Mass/Vol] 2.7 g/dL Normal [facility] Comment on above: Performed By: #### C MP #### [facility] [address] [address] [address] Tg Fierro Glucose [Mass/Vol] 120 mg/dL Critically high 74-106 [facility] Comment on above: Performed By: #### C MP #### [facility] [address] [place] [address] Dr. Tg Fierro Potassium [Moles/Vol] 4.1 mmol/L Normal 3.5-5.1 [facility] Comment on above: Performed By: #### C MP #### [facility] [address] [place] [address] Dr. Tg Fierro Protein [Mass/Vol] 6.6 g/dL Normal 6.4-8.2 [facility] Comment on above: Performed By: #### C MP #### [facility] [address] [address] [address] Tg Fierro Sodium [Moles/Vol] 139 mmol/L Normal 136-145 [facility] Comment on above: Performed By: #### C MP #### [facility] [address] [address] [address] Tg Fierro Urea nitrogen [Mass/Vol] 13.0 mg/dL Normal 7.0-18.0 [facility] Comment on above: Performed By: #### C MP #### [facility] [address] [place] [address] Dr. Tg Fierro Urea nitrogen/Creatinine [Mass ratio] 15.1 mg/mg Normal [facility] Comment on above: Performed By: #### C MP #### [facility] [address] [place] [address] Dr. Tg Fierro PROTIMEon 09-24-2022 INR Coag (PPP) [Relative time] 1.35 {INR} Normal [facility] Comment on above: Performed By: #### P T #### [facility] [address] [place] [address] Dr. Tg Fierro INR GUIDELINES SEE BELOW Normal [facility] Comment on above: Result Comment: LAURENCE RED INR: 2.0 - 3.0 CONDITIONS NOT LISTED BELOW 2.5 - 3.5 FOR PROSTHETIC HEART VALVE REPLACEMENT 2.5 - 3.5 RECURRENT THROMBOSIS Performed By: #### P T #### [facility] [address] [place] [address] Dr. Tg Fierro PT Coag (PPP) [Time] 14.1 s Critically high 9.0-11.6 [facility] Comment on above: Performed By: #### P T #### [facility] [address] [place] [address] Dr. Tg Fierro SED RATE WESTERGRENon 2022 SED RATE 8 mm/hr Normal <=30 [facility] Comment on above: Performed By: #### C MP #### [facility] [address] [address] [address] Tg Fierro PROTIMEon 09-09-2022 INR Coag (PPP) [Relative time] 1.23 {INR} Normal [facility] Comment on above: Performed By: #### P T #### [facility] [address] [address] [address] Tg Fierro INR GUIDELINES SEE BELOW Normal [facility] Comment on above: Result Comment: LAURENCE RED INR: 2.0 - 3.0 CONDITIONS NOT LISTED BELOW 2.5 - 3.5 FOR PROSTHETIC HEART VALVE REPLACEMENT 2.5 - 3.5 RECURRENT THROMBOSIS Performed By: #### P T #### [facility] [address] [address] [address] Tg Fierro PT Coag (PPP) [Time] 12.9 s Critically high 9.0-11.6 [facility] Comment on above: Performed By: #### P T #### [facility] [address] [place] [address] Dr. Tg Fierro ECHOCARDIO M/2D COMPLETEon 0 09-02-2022 ECHOCARDIO M/2D COMPLETE Patient: WILDA SEN Exam Date: 09/02/2022 : 1945 Gender:F Ordering : DR JAYME PEREZ . Admission #: [id number] Family : Order #: [id number] CLICK HERE TO VIEW EXAM ECHOCARDIOGRAM REPORT [...] Bender M.D. on 09/03/2022 at 17:25 Normal [facility] GLYCOHEMOGLOBIN A1Con 2022 ADA RECOMMENDATION SEE BELOW Normal [facility] Comment on above: Result Comment: ADA RECOMMENDED LIMIT 4.0 - 6.0 ADA THERAPEUTIC TARGET < 7.0 ACTION SUGGESTED > 7.0 Performed By: #### A 1C #### [facility] [address] [address] [address] Tg Fierro Glucose [Mass/Vol] 148 mg/dL Normal [facility] Comment on above: Performed By: #### A 1C #### [facility] [address] [address] [address] Tg Fierro HbA1c (Bld) [Mass fraction] 6.8 % Critically high 4.5-6.2 [facility] Comment on above: Performed By: #### A 1C #### [facility] [address] [place] [address] Dr. Tg Fierro CBC AUTO DIFFon 08-05-2022 BASO # 0.1 103/ul Normal 0.0-0.1 [facility] Comment on above: Performed By: #### C BC #### [facility] [address] [address] [address] Tg Fierro Basophils/100 WBC (Bld) 0.8 % Normal 0.2-2.0 [facility] Comment on above: Performed By: #### C BC #### [facility] [address] [place] [address] Dr. Tg Fierro EO # 0.5 103/ul Normal 0.0-0.7 [facility] Comment on above: Performed By: #### C BC #### [facility] [address] [place] [address] Dr. Tg Fierro Eosinophils/100 WBC (Bld) 7.3 % Critically high 0.9-7.0 [facility] Comment on above: Performed By: #### C BC #### [facility] [address] [place] [address] Dr. Tg Fierro Erythrocyte distribution width (RBC) [Ratio] 13.4 % Normal 11.0-15.0 [facility] Comment on above: Performed By: #### C BC #### [facility] [address] [place] [address] Dr. Tg Fierro Hematocrit (Bld) [Volume fraction] 37.1 % Normal 36.0-48.0 [facility] Comment on above: Performed By: #### C BC #### [facility] [address] [place] [address] Dr. Tg Fierro Hemoglobin (Bld) [Mass/Vol] 12.9 g/dL Normal 12.0-16.0 [facility] Comment on above: Performed By: #### C BC #### [facility] [address] [place] [address] Dr. Tg Fierro IG # 0.03 10e3/ul Normal 0.00-0.03 [facility] Comment on above: Performed By: #### C BC #### [facility] [address] [place] [address] Dr. Tg Fierro IG % 0.5 % Normal 0.0-0.5 [facility] Comment on above: Performed By: #### C BC #### [facility] [address] [place] [address] Dr. Tg Fierro LYMPH # 2.3 103/ul Normal 1.2-3.8 [facility] Comment on above: Performed By: #### C BC #### [facility] [address] [place] [address] Dr. Tg Fierro Lymphocytes/100 WBC (Bld) 34.9 % Normal 20.5-60.0 [facility] Comment on above: Performed By: #### C BC #### [facility] [address] [place] [address] Dr. Tg Fierro MANUAL DIFF REQ NO Normal [facility] Comment on above: Performed By: #### C BC #### [facility] [address] [place] [address] Dr. Tg Fierro MCH (RBC) [Entitic mass] 31.0 pg Normal 26.7-34.0 [facility] Comment on above: Performed By: #### C BC #### [facility] [address] [place] [address] Dr. Tg Fierro MCHC (RBC) [Mass/Vol] 34.8 g/dL Normal 29.9-35.2 [facility] [facility] Comment on above: Performed By: #### C BC #### [facility] [address] [place] [address] Dr. Tg Fierro MCV (RBC) [Entitic vol] 89.2 fL Normal 81.0-99.0 [facility] Comment on above: Performed By: #### C BC #### [facility] [address] [place] [address] Dr. Tg Fierro MONO # 0.4 103/ul Normal 0.3-0.8 [facility] Comment on above: Performed By: #### C BC #### [facility] [address] [place] [address] Dr. Tg Fierro Monocytes/100 WBC (Bld) 6.1 % Normal 1.7-12.0 [facility] Comment on above: Performed By: #### C BC #### [facility] [address] [address] [address] Tg Fierro NEUT # 3.3 103/ul Normal 1.4-6.5 [facility] Comment on above: Performed By: #### C BC #### [facility] [address] [address] [address] Tg Fierro Neutrophils/100 WBC (Bld) 50.4 % Normal 43.0-75.0 [facility] Comment on above: Performed By: #### C BC #### [facility] [address] [address] [address] Tg Fierro Platelet mean volume (Bld) [Entitic vol] 8.6 fL Critically low 9.5-13.5 [facility] Comment on above: Performed By: #### C BC #### [facility] [address] [place] [address] Dr. Tg Fierro PLT 336 103/ul Normal 150-450 [facility] Comment on above: Performed By: #### C BC #### [facility] [address] [address] [address] Tg Fierro RBC 4.16 106/ul Critically low 4.20-5.[address] [facility] Comment on above: Performed By: #### C BC #### [facility] [address] [place] [address] Dr. Tg Fierro WBC 6.4 103/ul Normal 4.0-11.0 [facility] Comment on above: Performed By: #### C BC #### [facility] [address] [place] [address] Dr. Tg Fierro PROF 14(COMP METB)on 023 Albumin [Mass/Vol] 3.9 g/dL Normal 3.4-5.0 [facility] Comment on above: Performed By: #### P T #### [facility] [address] [place] [address] Dr. Tg Fierro Albumin/Globulin [Mass ratio] 1.3 {ratio} Normal [facility] Comment on above: Performed By: #### P T #### [facility] [address] [place] [address] Dr. Tg Fierro ALP [Catalytic activity/Vol] 60 U/L Normal 46-116 [facility] Comment on above: Performed By: #### P T #### [facility] [address] [place] [address] Dr. Tg Fierro ALT [Catalytic activity/Vol] 21 U/L Normal 14-59 [facility] Comment on above: Performed By: #### P T #### [facility] [address] [place] [address] Dr. Tg Fierro Anion gap [Moles/Vol] 15.2 mmol/L Normal [facility] Comment on above: Performed By: #### P T #### [facility] [address] [place] [address] Dr. Tg Fierro AST [Catalytic activity/Vol] 14 U/L Critically low 15-37 [facility] Comment on above: Performed By: #### P T #### [facility] [address] [place] [address] Dr. Tg Fierro Bilirubin [Mass/Vol] 0.4 mg/dL Normal 0.2-1.0 [facility] Comment on above: Performed By: #### P T #### [facility] [address] [place] [address] Dr. Tg Fierro Calcium [Mass/Vol] 9.3 mg/dL Normal 8.5-10.1 [facility] Comment on above: Performed By: #### P T #### [facility] [address] [place] [address] Dr. Tg Fierro Chloride [Moles/Vol] 102 mmol/L Normal 98-107 [facility] Comment on above: Performed By: #### P T #### [facility] [address] [place] [address] Dr. Tg Fierro CO2 [Moles/Vol] 26.8 mmol/L Normal 21.0-32.0 [facility] Comment on above: Performed By: #### P T #### [facility] [address] [place] [address] Dr. Tg Fierro Creatinine [Mass/Vol] 0.74 mg/dL Normal 0.55-1.02 [facility] Comment on above: Performed By: #### P T #### [facility] [address] [address] [address] gT Fierro EGFR-AF FIJIAN >60 Normal >=60 [facility] Comment on above: Performed By: #### P T #### [facility] [address] [address] [address] Tg Fierro EGFR-NON AF FIJIAN >60 Normal >=60 [facility] Comment on above: Performed By: #### P T #### [facility] [address] [address] [address] Tg Fierro Globulin (S) [Mass/Vol] 3.1 g/dL Normal [facility] Comment on above: Performed By: #### P T #### [facility] [address] [address] [address] Tg Fierro Glucose [Mass/Vol] 148 mg/dL Critically high 74-106 [facility] Comment on above: Performed By: #### P T #### [facility] [address] [address] [address] Tg Fierro Potassium [Moles/Vol] 4.0 mmol/L Normal 3.5-5.1 [facility] Comment on above: Performed By: #### P T #### [facility] [address] [address] [address] Tg Fierro Protein [Mass/Vol] 7.0 g/dL Normal 6.4-8.2 [facility] Comment on above: Performed By: #### P T #### [facility] [address] [address] [address] Tg Fierro Sodium [Moles/Vol] 140 mmol/L Normal 136-145 [facility] Comment on above: Performed By: #### P T #### [facility] [address] [address] [address] gT Fierro Urea nitrogen [Mass/Vol] 12.0 mg/dL Normal 7.0-18.0 [facility] Comment on above: Performed By: #### P T #### [facility] [address] [place] [address] Dr. Tg Fierro Urea nitrogen/Creatinine [Mass ratio] 16.2 mg/mg Normal [facility] Comment on above: Performed By: #### P T #### [facility] [address] [place] [address] Dr. Tg Fierro SED RATE WESTERGRENon 2022 SED RATE 30 mm/hr Normal <=30 [facility] Comment on above: Performed By: #### S EDR #### [facility] [address] [place] [address] Dr. Tg Fierro CBC AUTO DIFFon 04-15-2022 BASO # 0.1 103/ul Normal 0.0-0.1 [facility] Comment on above: Performed By: #### C BC #### [facility] [address] [place] [address] Dr. Tg Fierro Basophils/100 WBC (Bld) 0.6 % Normal 0.2-2.0 [facility] Comment on above: Performed By: #### C BC #### [facility] [address] [place] [address] Dr. Tg Fierro EO # 0.2 103/ul Normal 0.0-0.7 [facility] Comment on above: Performed By: #### C BC #### [facility] [address] [place] [address] Dr. Tg Fierro Eosinophils/100 WBC (Bld) 3.1 % Normal 0.9-7.0 [facility] Comment on above: Performed By: #### C BC #### [facility] [address] [place] [address] Dr. Tg Fierro Erythrocyte distribution width (RBC) [Ratio] 13.6 % Normal 11.0-15.0 [facility] Comment on above: Performed By: #### C BC #### [facility] [address] [place] [address] Dr. Tg Fierro Hematocrit (Bld) [Volume fraction] 42.3 % Normal 36.0-48.0 [facility] Comment on above: Performed By: #### C BC #### [facility] [address] [address] [address] Tg Fierro Hemoglobin (Bld) [Mass/Vol] 13.2 g/dL Normal 12.0-16.0 [facility] Comment on above: Performed By: #### C BC #### [facility] [address] [address] [address] Tg Fierro IG # 0.04 10e3/ul Critically high 0.00-0.03 [facility] Comment on above: Performed By: #### C BC #### [facility] [address] [address] [address] Tg Fierro IG % 0.5 % Normal 0.0-0.5 [facility] Comment on above: Performed By: #### C BC #### [facility] [address] [place] [address] Dr. Tg Fierro LYMPH # 2.5 103/ul Normal 1.2-3.8 [facility] Comment on above: Performed By: #### C BC #### [facility] [address] [place] [address] Dr. Tg Fierro Lymphocytes/100 WBC (Bld) 31.6 % Normal 20.5-60.0 [facility] Comment on above: Performed By: #### C BC #### [facility] [address] [place] [address] Dr. Tg Fierro MANUAL DIFF REQ NO Normal [facility] Comment on above: Performed By: #### C BC #### [facility] [address] [place] [address] Dr. Tg Fierro MCH (RBC) [Entitic mass] 30.3 pg Normal 26.7-34.0 [facility] Comment on above: Performed By: #### C BC #### [facility] [address] [address] [address] Tg Fierro MCHC (RBC) [Mass/Vol] 31.2 g/dL Normal 29.9-35.2 [facility] Comment on above: Performed By: #### C BC #### [facility] [address] [address] [address] Tg Fierro MCV (RBC) [Entitic vol] 97.0 fL Normal 81.0-99.0 [facility] Comment on above: Performed By: #### C BC #### [facility] [address] [address] [address] Tg Fierro MONO # 0.5 103/ul Normal 0.3-0.8 [facility] Comment on above: Performed By: #### C BC #### [facility] [address] [address] [address] Tg Fierro Monocytes/100 WBC (Bld) 6.3 % Normal 1.7-12.0 [facility] Comment on above: Performed By: #### C BC #### [facility] [address] [place] [address] Dr. Tg Fierro NEUT # 4.5 103/ul Normal 1.4-6.5 [facility] Comment on above: Performed By: #### C BC #### [facility] [address] [place] [address] Dr. Tg Fierro Neutrophils/100 WBC (Bld) 57.9 % Normal 43.0-75.0 [facility] Comment on above: Performed By: #### C BC #### [facility] [address] [place] [address] Dr. Tg Fierro Platelet mean volume (Bld) [Entitic vol] 8.6 fL Critically low 9.5-13.5 [facility] Comment on above: Performed By: #### C BC #### [facility] [address] [place] [address] Dr. Tg Fierro PLT 295 103/ul Normal 150-450 [facility] Comment on above: Performed By: #### C BC #### [facility] [address] [place] [address] Dr. Tg Fierro RBC 4.36 106/ul Normal 4.20-5.40 [facility] Comment on above: Performed By: #### C BC #### [facility] [address] [place] [address] Dr. Tg Fierro WBC 7.8 103/ul Normal 4.0-11.0 [facility] Comment on above: Performed By: #### C BC #### [facility] [address] [place] [address] Dr. Tg Fierro PROF 14(COMP METB)on 022 Albumin [Mass/Vol] 4.5 g/dL Normal 3.4-5.0 [facility] Comment on above: Performed By: #### C MP #### [facility] [address] [place] [address] Dr. Tg Fierro Albumin/Globulin [Mass ratio] 1.5 {ratio} Normal [facility] Comment on above: Performed By: #### C MP #### [facility] [address] [place] [address] Dr. Tg Fierro ALP [Catalytic activity/Vol] 62 U/L Normal 46-116 [facility] Comment on above: Performed By: #### C MP #### [facility] [address] [place] [address] Dr. Tg Fierro ALT [Catalytic activity/Vol] 25 U/L Normal 14-59 [facility] Comment on above: Performed By: #### C MP #### [facility] [address] [place] [address] Dr. Tg Fierro Anion gap [Moles/Vol] 10.6 mmol/L Normal [facility] Comment on above: Performed By: #### C MP #### [facility] [address] [place] [address] Dr. Tg Fierro AST [Catalytic activity/Vol] 12 U/L Critically low 15-37 [facility] Comment on above: Performed By: #### C MP #### [facility] [address] [place] [address] Dr. Tg Fierro Bilirubin [Mass/Vol] 0.5 mg/dL Normal 0.2-1.0 [facility] Comment on above: Performed By: #### C MP #### [facility] [address] [place] [address] Dr. Tg Fierro Calcium [Mass/Vol] 9.8 mg/dL Normal 8.5-10.1 [facility] Comment on above: Performed By: #### C MP #### [facility] [address] [place] [address] Dr. Tg Fierro Chloride [Moles/Vol] 102 mmol/L Normal 98-107 [facility] Comment on above: Performed By: #### C MP #### [facility] [address] [address] [address] Tg Fierro CO2 [Moles/Vol] 31.8 mmol/L Normal 21.0-32.0 [facility] Comment on above: Performed By: #### C MP #### [facility] [address] [place] [address] Dr. Tg Fierro Creatinine [Mass/Vol] 0.88 mg/dL Normal 0.55-1.02 [facility] Comment on above: Performed By: #### C MP #### [facility] [address] [place] [address] Dr. Tg Fierro EGFR-AF FIJIAN >60 Normal >=60 [facility] Comment on above: Performed By: #### C MP #### [facility] [address] [place] [address] Dr. Tg Fierro EGFR-NON AF FIJIAN >60 Normal >=60 [facility] Comment on above: Performed By: #### C MP #### [facility] [address] [place] [address] Dr. Tg Fierro Globulin (S) [Mass/Vol] 3.1 g/dL Normal [facility] Comment on above: Performed By: #### C MP #### [facility] [address] [address] [address] Tg Fierro Glucose [Mass/Vol] 187 mg/dL Critically high 74-106 [facility] Comment on above: Performed By: #### C MP #### [facility] [address] [place] [address] Dr. Tg Fierro Potassium [Moles/Vol] 4.4 mmol/L Normal 3.5-5.1 [facility] Comment on above: Performed By: #### C MP #### [facility] [address] [address] [address] Tg Fierro Protein [Mass/Vol] 7.6 g/dL Normal 6.4-8.2 [facility] Comment on above: Performed By: #### C MP #### [facility] [address] [address] [address] Tg Fierro Sodium [Moles/Vol] 140 mmol/L Normal 136-145 [facility] Comment on above: Performed By: #### C MP #### [facility] [address] [place] [address] Dr. Tg Fierro Urea nitrogen [Mass/Vol] 14.0 mg/dL Normal 7.0-18.0 [facility] Comment on above: Performed By: #### C MP #### [facility] [address] [place] [address] Dr. Tg Fierro Urea nitrogen/Creatinine [Mass ratio] 15.9 mg/mg Normal [facility] Comment on above: Performed By: #### C MP #### [facility] [address] [place] [address] Dr. Tg Fierro SED RATE [facility] 2021 SED RATE 5 mm/hr Normal <=30 [facility] Comment on above: Performed By: #### S EDR #### [facility] [address] [place] [address] Dr. Tg Fierro CBC AUTO DIFFon 02-07-2022 BASO # 0.0 103/ul Normal 0.0-0.1 [facility] Comment on above: Performed By: #### P T #### [facility] [address] [place] [address] Dr. Tg Fierro Basophils/100 WBC (Bld) 0.6 % Normal 0.2-2.0 [facility] Comment on above: Performed By: #### P T #### [facility] [address] [place] [address] Dr. gT Fierro EO # 0.4 103/ul Normal 0.0-0.7 [facility] Comment on above: Performed By: #### P T #### [facility] [address] [place] [address] Dr. Tg Fierro Eosinophils/100 WBC (Bld) 5.4 % Normal 0.9-7.0 [facility] Comment on above: Performed By: #### P T #### [facility] [address] [place] [address] Dr. Tg Fierro Erythrocyte distribution width (RBC) [Ratio] 13.5 % Normal 11.0-15.0 [facility] Comment on above: Performed By: #### P T #### [facility] [address] [place] [address] Dr. Tg Fierro Hematocrit (Bld) [Volume fraction] 39.4 % Normal 36.0-48.0 [facility] Comment on above: Performed By: #### P T #### [facility] [address] [place] [address] Dr. Tg Fierro Hemoglobin (Bld) [Mass/Vol] 12.8 g/dL Normal 12.0-16.0 [facility] Comment on above: Performed By: #### P T #### [facility] [address] [place] [address] Dr. Tg Fierro IG # 0.02 10e3/ul Normal 0.00-0.03 [facility] Comment on above: Performed By: #### P T #### [facility] [address] [place] [address] Dr. Tg Fierro IG % 0.3 % Normal 0.0-0.5 [facility] Comment on above: Performed By: #### P T #### [facility] [address] [place] [address] Dr. Tg Fierro LYMPH # 2.4 103/ul Normal 1.2-3.8 [facility] Comment on above: Performed By: #### P T #### [facility] [address] [place] [address] Dr. Tg Fierro Lymphocytes/100 WBC (Bld) 36.2 % Normal 20.5-60.0 [facility] Comment on above: Performed By: #### P T #### [facility] [address] [place] [address] Dr. Tg Fierro MANUAL DIFF REQ NO Normal [facility] Comment on above: Performed By: #### P T #### [facility] [address] [place] [address] Dr. Tg Fierro MCH (RBC) [Entitic mass] 31.0 pg Normal 26.7-34.0 [facility] Comment on above: Performed By: #### P T #### [facility] [address] [place] [address] Dr. Tg Fierro MCHC (RBC) [Mass/Vol] 32.5 g/dL Normal 29.9-35.2 [facility] Comment on above: Performed By: #### P T #### [facility] [address] [place] [address] Dr. Tg Fierro MCV (RBC) [Entitic vol] 95.4 fL Normal 81.0-99.0 [facility] Comment on above: Performed By: #### P T #### [facility] [address] [place] [address] Dr. Tg Fierro MONO # 0.5 103/ul Normal 0.3-0.8 [facility] Comment on above: Performed By: #### P T #### [facility] [address] [place] [address] Dr. Tg Fierro Monocytes/100 WBC (Bld) 8.0 % Normal 1.7-12.0 [facility] Comment on above: Performed By: #### P T #### [facility] [address] [place] [address] Dr. Tg Fierro NEUT # 3.3 103/ul Normal 1.4-6.5 [facility] Comment on above: Performed By: #### P T #### [facility] [address] [place] [address] Dr. Tg Fierro Neutrophils/100 WBC (Bld) 49.5 % Normal 43.0-75.0 [facility] Comment on above: Performed By: #### P T #### [facility] [address] [address] [address] Tg Fierro Platelet mean volume (Bld) [Entitic vol] 8.7 fL Critically low 9.5-13.5 [facility] Comment on above: Performed By: #### P T #### [facility] [address] [address] [address] Tg Fierro PLT 276 103/ul Normal 150-450 [facility] Comment on above: Performed By: #### P T #### [facility] [address] [address] [address] Tg Fierro RBC 4.13 106/ul Critically low 4.20-5.[address] [facility] Comment on above: Performed By: #### P T #### [facility] [address] [place] [address] Dr. Tg Fierro WBC 6.7 103/ul Normal 4.0-11.0 [facility] Comment on above: Performed By: #### P T #### [facility] [address] [place] [address] Dr. Tg Fierro GLYCOHEMOGLOBIN A1Con 2021 ADA RECOMMENDATION SEE BELOW Normal [facility] Comment on above: Result Comment: ADA RECOMMENDED LIMIT 4.0 - 6.0 ADA THERAPEUTIC TARGET < 7.0 ACTION SUGGESTED > 7.0 Performed By: #### A 1C #### [facility] [address] [place] [address] Dr. Tg Fierro Glucose [Mass/Vol] 151 mg/dL Normal [facility] Comment on above: Performed By: #### A 1C #### [facility] [address] [address] [address] Tg Fierro HbA1c (Bld) [Mass fraction] 6.9 % Critically high 4.5-6.2 [facility] Comment on above: Performed By: #### A 1C #### [facility] [address] [place] [address] Dr. Tg Fierro PROF 14(COMP METB)on 022 Albumin [Mass/Vol] 3.8 g/dL Normal 3.4-5.0 [facility] Comment on above: Performed By: #### P T #### [facility] [address] [place] [address] Dr. Tg Fierro Albumin/Globulin [Mass ratio] 1.3 {ratio} Normal [facility] Comment on above: Performed By: #### P T #### [facility] [address] [place] [address] Dr. Tg Fierro ALP [Catalytic activity/Vol] 43 U/L Critically low 46-116 [facility] Comment on above: Performed By: #### P T #### [facility] [address] [place] [address] Dr. Tg Fierro ALT [Catalytic activity/Vol] 19 U/L Normal 14-59 [facility] Comment on above: Performed By: #### P T #### [facility] [address] [place] [address] Dr. Tg Fierro Anion gap [Moles/Vol] 13.7 mmol/L Normal [facility] Comment on above: Performed By: #### P T #### [facility] [address] [place] [address] Dr. Tg Fierro AST [Catalytic activity/Vol] 11 U/L Critically low 15-37 [facility] Comment on above: Performed By: #### P T #### [facility] [address] [place] [address] Dr. Tg Fierro Bilirubin [Mass/Vol] 0.4 mg/dL Normal 0.2-1.0 [facility] Comment on above: Performed By: #### P T #### [facility] [address] [place] [address] Dr. Tg Fierro Calcium [Mass/Vol] 9.1 mg/dL Normal 8.5-10.1 [facility] Comment on above: Performed By: #### P T #### [facility] [address] [place] [address] Dr. Tg Fierro Chloride [Moles/Vol] 104 mmol/L Normal 98-107 [facility] Comment on above: Performed By: #### P T #### [facility] [address] [address] [address] Tg Fierro CO2 [Moles/Vol] 28.5 mmol/L Normal 21.0-32.0 [facility] Comment on above: Performed By: #### P T #### [facility] [address] [address] [address] Tg Fierro Creatinine [Mass/Vol] 0.77 mg/dL Normal 0.55-1.02 [facility] Comment on above: Performed By: #### P T #### [facility] [address] [address] [address] Tg Fierro EGFR-AF FIJIAN >60 Normal >=60 [facility] Comment on above: Performed By: #### P T #### [facility] [address] [place] [address] Dr. Tg Fierro EGFR-NON AF FIJIAN >60 Normal >=60 [facility] Comment on above: Performed By: #### P T #### [facility] [address] [place] [address] Dr. Tg Fierro Globulin (S) [Mass/Vol] 3.0 g/dL Normal [facility] Comment on above: Performed By: #### P T #### [facility] [address] [place] [address] Dr. Tg Fierro Glucose [Mass/Vol] 124 mg/dL Critically high 74-106 [facility] Comment on above: Performed By: #### P T #### [facility] [address] [place] [address] Dr. Tg Fierro Potassium [Moles/Vol] 4.2 mmol/L Normal 3.5-5.1 [facility] Comment on above: Performed By: #### P T #### [facility] [address] [place] [address] Dr. Tg Fierro Protein [Mass/Vol] 6.8 g/dL Normal 6.4-8.2 [facility] Comment on above: Performed By: #### P T #### [facility] [address] [address] [address] Tg Fierro Sodium [Moles/Vol] 142 mmol/L Normal 136-145 [facility] Comment on above: Performed By: #### P T #### [facility] [address] [address] [address] Tg Fierro Urea nitrogen [Mass/Vol] 12.0 mg/dL Normal 7.0-18.0 [facility] Comment on above: Performed By: #### P T #### [facility] [address] [address] [address] Tg Fierro Urea nitrogen/Creatinine [Mass ratio] 15.6 mg/mg Normal [facility] Comment on above: Performed By: #### P T #### [facility] [address] [address] [address] Tg Fierro SED RATE [facility] 2021 SED RATE 8 mm/hr Normal <=30 [facility] Comment on above: Performed By: #### C MP #### [facility] [address] [address] [address] Tg Fierro COVID Quick Testingon 2020 Result Positive [employer] Other Vital Signs Date Time Vital Sign Value Performing Clinician Facility 10-14-2023 09:09-0400 Body temperature 98.6 [degF] Williams SHEPHERD [facility] 10-14-2023 09:09-0400 Diastolic blood pressure 61 mm[Hg] Williams SHEPHERD [facility] 10-14-2023 09:09-0400 Heart rate 80 /min Williams SHEPHERD [facility] 10-14-2023 09:09-0400 Respiratory rate 16 /min Williams SHEPHERD [facility] 10-14-2023 09:09-0400 Systolic blood pressure 115 mm[Hg] Williams SHEPHERD [facility] 08-13-2023 10:47-0500 Blood Pressure Location Renato SANTACRUZ [facility] 08-13-2023 10:47-0500 Diastolic blood pressure 62 mm[Hg] Renato SANTACRUZ [facility] 08-13-2023 10:47-0500 Heart rate 82 /min Renato SANTACRUZ [facility] 08-13-2023 10:47-0500 Respiratory rate 16 /min Renato SANTACRUZ [facility] 08-13-2023 10:47-0500 Systolic blood pressure 105 mm[Hg] Renato SANTACRUZ [facility] 08-07-2023 09:48-0500 Body height 160 cm Jayme Perez MD Work Phone: [facility] 08-07-2023 09:48-0500 Body mass index (BMI) [Ratio] 24.45 kg/m2 Jayme Perez MD Work Phone: [facility] 08-07-2023 09:48-0500 Body weight 62.6 kg Jayme Perez MD Work Phone: [facility] 08-07-2023 09:48-0500 Heart rate 57 /min Jayme Perez MD Work Phone: [facility] 08-07-2023 09:48-0500 SaO2% (BldA) [Mass fraction] 98 % Jayme Perez MD Work Phone: [facility] 07-25-2023 09:20-0500 Body height 160.02 cm Lou Glover Other [employer] Other 07-25-2023 09:20-0500 Body mass index (BMI) [Ratio] 23.91 kg/m2 Lou Glover Other [employer] Other 07-25-2023 09:20-0500 Body temperature 97.7 [degF] Lou Glover Other [employer] Other 07-25-2023 09:20-0500 Body weight 61.24 kg Lou Glover Other [employer] Other 07-25-2023 09:20-0500 Diastolic blood pressure 74 mm[Hg] Lou Glover Other [employer] Other 07-25-2023 09:20-0500 Respiratory rate 18 /min Lou Glover Other [employer] Other 07-25-2023 09:20-0500 SaO2% (BldA) [Mass fraction] 96 % Lou Glover Other [employer] Other 07-25-2023 09:20-0500 Systolic blood pressure 120 mm[Hg] Lou Glover Other [employer] Other 03-26-2023 13:15-0400 Body height 160.02 cm MD Jayme Perez Work Phone: [facility] 03-26-2023 13:15-0400 Body temperature 98.2 [degF] MD Jayme Perez Work Phone: [facility] 03-26-2023 13:15-0400 Body weight 66 kg MD Jayme Perez Work Phone: [facility] 03-26-2023 13:15-0400 Diastolic blood pressure 71 mm[Hg] MD Jayme Perez Work Phone: [facility] 03-26-2023 13:15-0400 Heart rate 87 /min MD Jayme Perez Work Phone: [facility] 03-26-2023 13:15-0400 Respiratory rate 16 /min MD Jayme Perez Work Phone: [facility] 03-26-2023 13:15-0400 SaO2% (BldA) [Mass fraction] 97 % MD Jayme Perez Work Phone: [facility] 03-26-2023 13:15-0400 Systolic blood pressure 117 mm[Hg] MD Jayme Perez Work Phone: [facility] 05-21-2021 13:15-0500 Body height 160.02 cm Astrid Ryanault Other [employer] Other 05-21-2021 13:15-0500 Body mass index (BMI) [Ratio] 23.91 kg/m2 Astrid Baker Other [employer] Other 05-21-2021 13:15-0500 Body temperature 97.3 [degF] Astrid Baker Other [employer] Other 05-21-2021 13:15-0500 Body weight 61.24 kg Astrid Baker Other [employer] Other 05-21-2021 13:15-0500 SaO2% (BldA) [Mass fraction] 94 % Astrid Ryanault Other [employer] Other Encounters Encounter Date Encounter Type Care Provider Facility Start: 04-13-2024 End: 04-13-2024 Clinisync Result Encounter Jayme Perez MD Work Phone: [facility] Unsolicited Start: 04-13-2024 End: 04-13-2024 Clinisync Result Encounter Jayme Perez MD Work Phone: [facility] Unsolicited Start: 03-31-2024 End: 03-31-2024 Patient encounter procedure MD Jayme Perez Work Phone: [facility] [address] Work Phone: Start: 03-31-2024 End: 03-31-2024 ambulatory MD Jayme Perez Work Phone: [facility] Work Phone: Start: 12-31-2023 End: 12-31-2023 ambulatory FELICIA FARMER Not Available Start: 10-14-2023 End: 10-15-2023 ambulatory Williams SHEPHERD Facility:[facility] Start: 10-14-2023 End: 10-14-2023 Patient encounter procedure Williams SHEPHERD [facility] Start: 09-01-2023 End: 09-01-2023 ambulatory FELICIA FARMER Not Available Start: 08-20-2023 Clinisync Result Encounter Generic External Data Provider [facility] Unsolicited Start: 08-20-2023 Clinisync Result Encounter Generic External Data Provider [facility] Unsolicited Start: 08-14-2023 End: 08-15-2023 ambulatory Renato SANTACRUZ Facility:[id number] Start: 08-13-2023 End: 08-14-2023 ambulatory Renato SANTACRUZ Facility:[facility] Start: 08-13-2023 End: 08-13-2023 Patient encounter procedure Renato SANTACRUZ [facility] [place] Start: 08-07-2023 End: 08-07-2023 Office outpatient visit 25 minutes Jayme Perez MD Work Phone: [facility] Comment on above: Chronic diastolic he art failure (CMS/HCC) (Primary Dx); 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 (CMS/HCC); Type 2 diabetes mellitus with stage 3a chronic kidney disease, without long-term current use of insulin (HCC) (CMS/HCC); Stage 3a chronic kidney disease (HCC) (CMS/HCC); Microalbuminuria; Former smoker; 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, adult; prison current use of anticoagulant; Psoriatic arthropathy (CMS/HCC); Gastroesophageal reflux disease without esophagitis Start: 08-07-2023 End: 08-07-2023 ambulatory JAYME PEREZ Not Available Start: 07-30-2023 End: 07-30-2023 ambulatory JAYME PEREZ Not Available Start: 07-25-2023 End: 07-25-2023 ambulatory Lou Glover Other [employer] Other Start: 07-25-2023 Office outpatient vi sit 25 minutes Lou Glover [facility] [place] Start: 07-10-2023 End: 07-10-2023 ambulatory FELICIA FARMER Not Available Start: 07-02-2023 End: 07-02-2023 ambulatory FELICIA D ZAHLER Not Available Start: 06-25-2023 End: 06-25-2023 ambulatory FELICIAZULEIMA HITCHCOCKHLER Not Available Start: 06-18-2023 End: 06-18-2023 ambulatory FELICIA D CORETTAHLER Not Available Start: 04-07-2023 End: 04-07-2023 Departed Referred MD Jayme Perez Work Phone: [facility] [place] Start: 04-07-2023 End: 04-08-2023 ambulatory MD Jayme Perez Work Phone: [facility] Work Phone: Start: 03-26-2023 End: 03-26-2023 Patient encounter procedure MD Jayme Perez Work Phone: [facility] Work Phone: Start: 03-20-2023 End: 03-21-2023 ambulatory Williams SHEPHERD Facility:[facility] Start: 03-20-2023 End: 03-20-2023 Lab Drop off Williams Venegas [facility] Start: 03-20-2023 End: 03-20-2023 Patient encounter procedure Williams SHEPHERD [facility] Start: 02-03-2023 End: 02-04-2023 ambulatory Williams SHEPHERD Facility: [place] Start: 11-11-2022 End: 12-11-[address] JAYME [...] 04-15-2022 End: 04-16-[address] RADAMES MONTEIRO Facility: Start: 02-20-2022 End: 02-21-[address] RADAMES MONTEIRO Facility: Start: 02-07-2022 End: 02-08-[address] JAYME PEREZ . Facility: Start: 05-21-2021 End: 05-21-2021 ambulatory Astrid Baker Other [employer] Other Start: 05-21-2021 Office outpatient vi sit 15 minutes Astrid Olivia [facility] Procedures Date Procedure Procedure Detail Performing Clinician Start: 04-13-2024 SRMCOH PROTHROMBIN T GERALD INR W/O COUM Jayme Perez MD Work Phone: Start: 08-20-2023 ALL BUN Generic Ex ternal [...] Treatment Date Care Activity Detail Author Start: 12-30-2025 Glaucoma screening Diabetes: Retinopathy Screening [facility] Start: 05-19-2025 Glaucoma screening Diabetes: Retinopathy Screening [facility] Start: 08-04-2024 End: 08-04-2024 Patient encounter procedure 08/04/2024 1:00 PM EST Office Visit [facility] [address] [place] [id number] Felicia Farmer DO [address] [place] [address] [facility] Start: 07-12-2024 ambulatory Ambulatory Facility:[facility] Start: 05-22-2024 Medicare Annual Wellness (AWV) Medicare Annual Wellness (AWV) [facility] Start: 04-15-2024 End: 04-15-2024 Patient encounter procedure 04/15/2024 2:30 PM EDT Office Visit [facility] [address] [facility] [address] [place] [address] Jayme Perez MD [address] [place] [address] (Fax) [facility] Start: 03-14-2024 Influenza vaccination Influenza Vaccine (#1) [facility] Start: 10-26-2023 Urine screening for protein Diabetes: Urine Protein Screening [facility] Start: 09-01-2023 End: 09-01-2023 Patient encounter procedure 09/01/2023 10:30 AM EST Office Visit [facility] [address] [place] [address] Felicia Farmer DO [address] [place] [address] [facility] Start: 05-06-2023 Hemoglobin A1c measurement Diabetes: Hemoglobin A1C [facility] Start: 04-07-2023 Abdomen endoscopy OR Cysto/Retro/Stent/Stone/ Holmium Laser (Right) [facility] Start: 03-14-2023 Influenza vaccination Influenza Vaccine (#1) [facility] Start: 1951 Pneumococcal Vaccine: 65+ Years (1 - PCV) Pneumococcal Vaccine: 65+ Years (1 - PCV) [facility] Start: 1951 Pneumococcal Vaccine: 65+ Years (1 of 2 - PCV) Pneumococcal Vaccine: 65+ Years (1 of 2 - PCV) [facility] Immunizations Immunization Date Immunization Notes Care Provider Yaya oswald NEGATED: Highlighted row has not occurred!08-13-2023 influenza virus vaccine, unspecified formulation Renato SANTACRUZ [facility] NEGATED: Highlighted row has not occurred!08-13-2023 SARS-CoV-2 mRNA (tozinameran 5y-11y) vaccine Renato SANTACRUZ [facility] NEGATED: Highlighted row has not occurred!09-21-2019 influenza virus vaccine, live, attenuated, for intranasal use [employer] [facility] NEGATED: Highlighted row has not occurred!08-20-2019 influenza virus vaccine, live, attenuated, for intranasal use [employer] [facility] Payers Date Payer Category Payer Self-pay [id number] 2023 Private Health Insurance [employer] Lucinda ETNA SENIOR SUPPLEMENT [id number] 2023-Present [address] [address] [place] [address] Supplement [id number] 2022 Unknown FIJIAN CONTINE NTAL INS CO FIJIAN CONTINENTAL INS CO [id number] 2022-Present [address] [address] [place] [address] [id number] 2022 Medicare [id number] 2002 Medicare MEDICARE MEDICAR E PART B [id number] 2002-[place] [address] [place] [address] Medicare [id number] 1959 Medicare [id number] 2.16.840.1.445649.19 1959 Unknown [id number] 1946 Unknown [id number] 2.16.840.1.706575.3.579 .2.593 1946 Unknown [id number] 2.16.840.1.228878.3.579 .2.593 1946 Unknown [id number] 2.16.840.1.517966.3.579 .2.593 1946 Unknown [id number] 2.16.840.1.716109.3.579 .2.593 1946 Unknown [id number] 2.16.840.1.930165.3.579 .2.593 1946 Unknown [id number] 2.16.840.1.294722.3.579 .2.593 1946 Unknown [id number] 2.16.840.1.499432.3.579 .2.593 1946 Unknown [id number] 2.16.840.1.945346.3.579 .2.593 1946 Unknown [id number] 2.16.840.1.696614.3.579 .2.593 1946 Unknown [id number] 2.16.840.1.369101.3.579 .2.593 1946 Unknown [id number] 2.16.840.1.944066.3.579 .2.593 1946 Unknown [id number] 2.16.840.1.144603.3.579 .2.593 1946 Unknown [id number] 2.16.840.1.078949.3.579 .2.593 1946 Unknown [id number] 2.16.840.1.798644.3.579 .2.727 1946 Unknown [id number] 2.16.840.1.794439.3.579 .2.727 1946 Unknown [id number] 2.16.840.1.509917.3.579 .2.727 1946 Unknown [id number] 2.16.840.1.162453.3.579 .2.727 1946 Unknown [id number] 2.16.840.1.643420.3.579 .2.727 1946 Unknown [id number] 2.16.840.1.822283.3.579 .2.727 1946 Unknown [id number] 2.16.840.1.417312.3.579 .2.727 1946 Unknown [id number] 2.16.840.1.324668.3.579 .2.1259 1946 Unknown [id number] 2.16.840.1.738672.3.579 .2.1259 1946 Unknown [id number] 2.16.840.1.803245.3.579 .2.1259 1946 Unknown [id number] 2.16.840.1.510372.3.579 .2.9 1946 Unknown [id number] 2.16.840.1.765113.3.579 .2.9 1946 Unknown [id number] 2.16.840.1.052904.3.579 .2.1258 1946 Unknown [id number] 2.16.840.1.034338.3.579 .2.1259 1946 Unknown [id number] 2.16.840.1.188588.3.579 .2.1258 Unknown [id number] 2.16.840.1.190113.3.579 .2.531 Social History Date Type Detail Facility Sex Assigned At [employer] Other Start: 02-03-2023 End: 08-07-2023 Tobacco smoking status Ex-smoker (finding) [facility] Tobacco smoking status Never [facility] Start: 12-11-2022 End: 05-22-2023 Sex Assigned At Female [facility] Start: 1945 Sex Assigned At Female F [facility] End: 07-14-1986 History of tobacco use Current smoker [facility] End: 07-14-1986 History of tobacco use Cigarette Smoker [facility] Start: 08-07-2023 Tobacco use and exposure Smokeless tobacco non-user [facility] Start: 08-07-2023 End: 12-31-2023 Alcohol intake Ex-drinker (finding) [facility] Start: [...] Healthcare Functional Status Date Assessment Result Facility 10-14-2023 Functional Status N/A [facility] 08-13-2023 Functional Status N/A [facility] Clinical Notes 02-21-2022 to 10-14-2023 Jayme [...] include: ?8 oz (237 mL) of milk, gxyhqes-yzxldwumacnt-reyht milk, and calcium-fortifiedfruit juice. Calcium-fortified means that [...] ?Spinach (cooked), rhubarb, beets, sweet potatoes, and Gabonese chard. ?Peanuts. ?Potato chips, citizen of [place] fries, and baked potatoes with skin on. ?Nuts and nut products. ?Chocolate. If you regularly take a diuretic medicine, make sure to eat at least 1 or 2 servings of fruits or vegetables that are high in potassium each day. These include: ?Avocado. ?Banana. ?[place], prune, carrot, or tomato juice. ?Baked potato. [...] magnesium, fish oil, or vitamin B6. Take falb-dag-bonazoc and prescription medicines only as told by [...] Casseroles. Pizza. Lasagna. Frozen meals. Potato chips. Ukrainian fries. The items listed above may not [...] provider. Document Revised: 10/10/2022 Document Reviewed: 10/10/2022 [employer] Patient Education 2022 [employer]. Follow Up Care 08/13/2023 10:19:44 With:CORA AGUIAR, Williams Venegas, URL Address: [address] [place], [place] [id number]- When: Unknown [facility] [place] 08-13-2023 Hospital Discharge instructions Patient Education 08/13/2023 [...] including vitamins, herbs, eye drops, creams, and gcvh-ntg-khseltj medicines. Any problems you or family members [...] provider tells you to take them. ?Taking ujyl-uia-nlhqvhk medicines, vitamins, herbs, and supplements. Eating and [...] provider. Document Revised: 11/06/2022 Document Reviewed: 03/04/2022 [employer] Patient Education 2022 [employer]. 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 documented in this encounter [facility] 07-25-2023 Evaluation note Encounter Date Diagnosis [...] care as directed rx of steroid and [place], cool mist humidification. May use Tylenol as directed. Immediate eval for signs of respiratory distress, difficulty breathing poor PO intake, signs of dehydration, fever, or other concerning symptoms. Otherwise, follow up with PCP in 2-3 days. Patient verbalizes understanding and is agreeable to treatment plan. Patient sent home in stable condition. [employer] Other 08-11-2022 NotePROCEDURE: XR FOOT LT MIN 3 VIEWS COMPARISON: None. HISTORY: Pain in left foot FINDINGS: BONES:No acute fracture or dislocation. Mild enthesopathic spurring of the calcaneus. SOFT TISSUES:Negative. No visible soft tissue swelling. EFFUSION:None visible. OTHER: Negative. IMPRESSION: Mild enthesopathic spurring of the calcaneus Electronically authenticated by: BLANCA ZAVALA Date: 2022-02-21 [facility]:28[facility] Future App[facility]ments Appointment Date:07/12/2024 10:45:00 AM Scheduled Provider:Williams SHEPHERD MD Location:[facility] Appointment Type:URO Office Visit [facility] Evaluation + Plan note Future Appointments Appointment Date:07/12/2024 10:45:00 AM Scheduled Provider:Williams SHEPHERD MD Location:[facility] Appointment Type:URO Office Visit Diagnostic Tests Pending * Calculi Analysis [facility]ments Appointment Date:10/14/2023 09:15:00 AM Scheduled Provider:Williams SHEPHERD MD Location:[facility] Appointment Type:URO Office Visit Appointment Date:07/12/2024 10:45:00 AM Scheduled Provider:Williams SHEPHERD MD Location:[facility] Appointment Type:URO Office Visit [facility] evaluation [place] Other Evaluation noteNo assessment information available [facility] Work Phone: evaluation note* Diagnosis Chronic diastolic heart failure ([facility]/HCC)- Primary Chronic diastolic heart failure 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 ([facility]/HCC) Atrial fibrillation Type 2 diabetes mellitus with stage 3a chronic kidney disease, without long-term current use of insulin (HCC) ([facility]) Stage 3a chronic kidney disease (HCC) ([facility]) Microalbuminuria Proteinuria Former smoker Personal history of tobacco use, presenting hazards to health 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, 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 Psoriatic arthropathy ([facility]) Psoriatic arthropathy Gastroesophageal reflux disease without esophagitis Esophageal reflux documented in this encounter [facility] [employer] Other History general Narrative - Reported* Type Description Date Medical History Arthritis Medical History diabetes mallitus Surgical History cataract surgery [place] Other Hospital course Narrative No data available for this section [facility] [place] [facility] Discharge instructions No data available for this section [facility] [facility] Progress note No data available for this section [facility] Liquid State Summary Purpose Family History Relationship Condition Age at Onset Recorded Date/T gerald Not Specified Heart disease Unknown father Cystic fibrosis Unknown Relationship Condition Age at Onset Recorded Date/T gerald mother Heart disease Unknown father Cystic fibrosis Unknown father Unknown mother Unknown Advance Directives Advance Directive Response Recorded Date/ Time Advance Directives No May 06, 2017 4:21pm Advance Directive Response Recorded Date/ Time Advance Directives No May 06, 2017 5:21pm Chief Complaint and Reason for Visit Chief Complaint Kidney Stones Kidney Stones Additional Source Comments INFORMATION SOURCE (unrecogn ized section and content) DATE CREATED AUTHOR 12/20/2022 [facility] DATE CREATED AUTHOR AUTHOR'S ORGANIZ ATION 10/15/2023 [facility] DATE CREATED AUTHOR AUTHOR'S ORGANIZ ATION 01/02/2024 [facility] DATE CREATED AUTHOR AUTHOR'S ORGANIZ ATION 04/10/2024 [facility] Patient Care team informatio n (unrecognized section and content) Team Status: Active Member Role Status Dates Jayme Perez MD Primary Care Provider Active Team Status: Inactive Member Role Status Dates Jayme Perez MD Primary Care Provider Active Williams Shepherd MD Attending Provider Active Bacteriologist Medical Relationship Specialty Start Date End Date Jayme Perez MD [address] [place] [address] PCP - General Family Medicine 11/25/22 Jayme Perez MD [address] [place] [address] PCP - ACO Reach 12/05/22 Bacteriologist Medical Relationship Specialty Start Date End Date Jayme Perez MD [address] [place] [address] (Fax) PCP - General Family Medicine 11/25/22 Jayme Perez MD [address] [place] [address] (Fax) PCP - ACO Reach 12/05/22 Team Status: Inactive Member Role Status Dates Jayme Perez MD Primary Care Provider Active Start: March 31, 2024 End: March 31, 2024 Radames Monteiro MD Attending Provider Active St art: March 31, 2024 End: March 31, 2024 Bacteriologist Medical Relationship Specialty Start Date End Date Jayme Perez MD [address] [phone] (Fax) PCP - General Family Medicine 11/25/22 Jayme Perez MD [address] [place] [address] (Fax) PCP - ACO Reach 12/05/22 Felicia Farmer DO [address] [place], [place] [address] [address] [place] [address] Referring Physician Ophthalmology 08/21/23 Renato Santacruz MD [address] [phone] Referring Physician Urology 08/21/23 Radames Monteiro MD [address] [place] [id number] Referring Physician Rheumatology 08/21/23 Goals (unrecognized section and content) Goals may [...] BE BASED ON THE PRIMARY CLINICAL RECORDS. [employer] provides no warranty or guarantee of the accuracy or completeness of information in this document.
[2024-04-16 13:45] LABS: Basophils Percent Auto 0.6 % (0.2-2.0); Eosinophils Absolute Auto 0.1 10^3/uL (0.0-0.7); Eosinophils Percent Auto 2.1 % (0.9-7.0); Hematocrit 41.8 % (36.0-48.0); Hemoglobin 13.5 g/dL (12.0-16.0); Immature Granulocytes Abs Auto 0.02 10^3/uL (0.00-0.03); Immature Granulocytes Pct Auto 0.3 % (0.0-0.5); Lymphocytes Absolute Auto 2.1 10^3/uL (1.2-3.8); Lymphocytes Percent Auto 32.2 % (20.5-60.0); Mean Corpuscular HGB Conc 32.3 g/dL (29.9-35.2); Mean Corpuscular Volume 95.9 fL (81.0-99.0); Mean Platelet Volume 8.6 fL (9.5-13.5); Monocytes Absolute Auto 0.5 10^3/uL (0.3-0.8); Monocytes Percent Auto 6.8 % (1.7-12.0); Neutrophils Absolute Auto 3.8 10^3/uL (1.4-6.5); Platelet Count 316 10^3/uL (150-450); Red Blood Count 4.36 10^6/uL (4.20-5.40); Red Cell Distribution Width 14.1 % (11.0-15.0); White Blood Count 6.6 10^3/uL (4.0-11.0)
[2024-04-16 14:27] LABS: Erythrocyte Sedimentation Rate 35 mm/hr (<=30)
[2024-04-16 14:50] LABS: Alanine Aminotransferase 24 U/L (14-59); Albumin Globulin Ratio 1.1; Albumin Level 3.9 g/dL (3.4-5.0); Alkaline Phosphatase 56 U/L (46-116); Anion Gap 16.3; Aspartate Amino Transferase 18 U/L (15-37); BUN Creatinine Ratio 12.1; Bilirubin Total 0.5 mg/dL (0.2-1.0); Calcium 9.9 mg/dL (8.5-10.1); Carbon Dioxide 25.4 mmol/L (21.0-32.0); Chloride 100 mmol/L (98-107); Estimated GFR (African America >60 (>=60 mL/min/1.73m^2); Estimated GFR (Non-African Ame 54 (>=60 mL/min/1.73m^2); Globulin 3.4 g/dL; Glucose 126 mg/dL (74-106); Magnesium 1.7 mg/dL (1.8-2.4); Phosphorus 3.7 mg/dL (2.6-4.7); Potassium 3.7 mmol/L (3.5-5.1); Sodium 138 mmol/L (136-145); Total Protein 7.3 g/dL (6.4-8.2)
== END 2024-04-16 13:11 | disposition home or self-care (01) ==
LOC: LAB 13:14
PROVIDERS: PCP Family Medicine; Visit Provider Internal Medicine Rheumatology
DX: L40.59 Other psoriatic arthropathy (principal); Z79.899 Other long term (current) drug therapy
CPT/HCPCS: 36415; 80053; 83735; 84100; 85025; 85652

== ENCOUNTER 2024-04-16 13:17 | Outpatient (OUT) | payer MEDICARE, SELFPAY ==
[2024-04-16 14:51] LABS: Free T4 0.99 ng/dL (0.76-1.46)
[2024-04-16 15:25] LABS: Free T3 2.69 pg/mL (2.18-3.98); Thyroid Stimulating Hormone 0.917 uIU/mL (0.358-3.740)
[2024-04-17 04:08] LABS: Triiodothyronine (T3) 93 ng/dL (71-180)
[2024-04-22 19:08] LABS: Reverse T3, Serum 17.2 ng/dL (9.2-24.1)
== END 2024-04-16 13:18 | disposition home or self-care (01) ==
LOC: LAB 13:20
PROVIDERS: PCP Family Medicine; Visit Provider Family Medicine
DX: L40.59 Other psoriatic arthropathy (principal); Z79.899 Other long term (current) drug therapy; R53.82 Chronic fatigue, unspecified
CPT/HCPCS: 36415; 80053; 83735; 84100; 84439; 84443; 84480; 84481; 84482; 85025; 85652

== ENCOUNTER 2024-04-22 11:13 | Outpatient (OUT) | payer MEDICARE, SELFPAY ==
--- NOTE | 2024-04-22 11:24 | CT_ITS ---
[address] [address] Patient Name: KASEY SEN MRN: [id number] date: 1945 Sex: F Assigned Patient Location: LAB Current Patient Location: Accession/Order Number: [id number] Exam Date: 04/22/2024 12:40 Report Date: 04/23/2024 04:45 At the request of: FAYE PEREZ Procedure: CT abdomen pelvis w con EXAMINATION: CT abdomen pelvis w con HISTORY: Unexplained weight loss R63.4 COMPARISON: CT abdomen pelvis 08/12/2023 TECHNIQUE: Axial, Coronal, and Sagittal images were obtained without and/or with IV contrast as indicated by examination type. Dose reduction techniques were achieved by using automated exposure control and/or adjustment of mA and/or kV according to patient size and/or use of iterative reconstruction technique. FINDINGS: LUNG BASES: No visible pulmonary or pleural disease. LIVER: No enlargement, atrophy, suspicious density, or significant focal lesion. BILIARY: No dilatation or calcification. PANCREAS: No lesion, fluid collection, or abnormal duct dilatation. SPLEEN: No enlargement or focal lesion. ADRENALS: Grossly stable, nonspecific 11 mm nodule within left adrenal gland. KIDNEYS: 2 nonobstructing small stones within right kidney and a benign-appearing cyst. Unremarkable left kidney and bilateral ureters. No mass, obstruction, or calcification. BOWEL/MESENTERY: No visible mass, obstruction, or bowel wall thickening. AORTA/VASCULAR: No aneurysm or dissection. RETROPERITONEUM: No mass or adenopathy. LYMPH NODES: No adenopathy. URINARY BLADDER: No visible focal wall thickening, lesion, or calculus. PELVIC ORGANS: Hysterectomy. ABDOMINAL WALL: No mass or hernia. BONES: No bony lesion or fracture. L5-S1 marked degenerative disc disease. OTHER: Negative. CT/CT abdomen pelvis w con IMPRESSION: 1. No abnormal or suspicious findings to account for patient's symptoms. 2. Stable, chronic left adrenal nodule; nonspecific. 3. Nonobstructing nephrolithiasis. 4. Marked degenerative disc disease at L5-S1. Electronically authenticated by: MYRTLE KHOURY Date: 04/23/2024 04:45
--- OUTSIDE RECORDS SUMMARY | 2024-04-22 11:32 | XMS_ITS | CCD ---
Author Organization [facility] Care Team Providers Care Emblem Drawer In Name Role Phone Astrid Baker Unavailable CAYETANO, [...] Care Provider MD Williams Shepherd Attending Provider Lou Glover Unavailable Jayme Perez MD Primary Care Provider Jayme Perez MD Unavailable [phone] Renato SANTACRUZ Attending Unavailable Williams SHEPHERD Attending Unavailable Williams SHEPHERD Attending Unavailable Williams SHEPHERD Admitting Unavailable Williams SHEPHERD Attending Unavailable Renato SANTACRUZ Attending Unavailable Williams SHEPHERD Attending Unavailable Williams SHEPHERD Attending Unavailable Williams SHEPHERD Attending Unavailable MD Jayme Perez Primary Care Provider [phone] MD Radaems Monteiro Attending Provider [phone] Radames Monteiro Admitting Unavailable Radames Monteiro Attending Unavailable Jayme Perez Primary Care Unavailable Felicia Farmer DO Unavailable [phone] Renato Santacruz MD Unavailable [phone] Radames Monteiro MD Unavailable [phone] FELICIA FARMER Attending Unavailable JAYME PEREZ Attending Unavailable FELICIA FARMER Attending Unavailable JAYME PEREZ Attending Unavailable FELICIA FARMER Attending Unavailable FELICIA FARMER Attending Unavailable FELICIA FARMER Attending Unavailable FELICIA FARMER Attending Unavailable JAYME PEREZ Attending Unavailable Allergies Allergy Classification Reported Allergen(s) Allergy Type Date of Onset Reaction(s) Facility (13 sources) Ciprofloxacin; Translations: [ciprofloxacin] Drug Allergy 02-19-20 anaphylaxis, Unknown (qualifier value) [facility] (1 source) sulfaSALAzine Drug Allergy rash [facility] Other (1 source) Ciprofloxacin Drug Allergy 03-30-20 13 [facility] Repository (2 sources) Ketorolac; Translations: [Toradol] Drug Allergy 03-30-20 13 [facility] Repository (2 sources) metroNIDAZOLE; Translations: [MetroGel] Drug Allergy 03-30-20 13 [facility] Repository (1 source) NSAIDs Drug allergy (disorder) 03-30-20 13 [facility] Repository (2 sources) pioglitazone; Translations: [Actos] Drug Allergy 03-30-20 13 [facility] Rep[facility] (1 source) Sulfonamides (Antibiotic) Drug allergy (disorder) 03-30-20 13 [facility] Repository (11 sources) Ketorolac; Translations: [ketorolac] Drug Allergy 03-26-20 Unknown (qualifier value), Nausea (finding) [facility] Comment on above: Severe (12 sources) Latex; Translations: [Latex] Drug allergy 01-07-20 Blister of skin AND/OR mucosa (finding) [facility] (9 sources) Non-steroidal anti-inflammatory agent; Translations: [NSAIDs] Drug allergy 02-19-20 Unknown (qualifier value) [facility] (13 sources) pioglitazone; Translations: [pioglitazone] Drug Allergy 01-07-20 23 Unknown (qualifier value) [facility] (5 sources) Sulfonamides (Antibiotic); Translations: [sulfa drugs] Drug allergy Unknown (qualifier value) [facility] (9 sources) metroNIDAZOLE; Translations: [Metronidazole] Drug Allergy 02-19-20 Redness of Skin [facility] (3 sources) Sulfonamides (Antibiotic); Translations: [Sulfa (Sulfonamide Antibiotics)] Allergy to substance 03-26-20 [facility] (3 sources) NSAIDS (Non-Steroidal Anti-Inflamma; Translations: [NSAIDS (Non-Steroidal Anti-Inflamma] Allergy to substance 03-26-20 Anaphylaxis, Anaphylaxis, rash [facility] (1 source) Non-steroidal anti-inflammatory agent Drug allergy [facility] [employer] Other (5 sources) Substance with sulfonamide structure and antibacterial mechanism of action (substance) Drug allergy 02-19-20 [facility] [employer] Other (4 sources) Ketorolac Allergy to substance 01-07-20 Nausea Only [facility] (4 sources) Hydrocodone Bit-Homatrop Mbr Propensity to adverse reactions 08-07-19 Dizziness [facility] (4 sources) Medical Adhesive Remover Drug Allergy 02-19-20 [facility] (1 source) Ciprofloxacin Drug Allergy 07-25-19 [facility] Repository (1 source) Ketorolac Drug Allergy 03-26-20 [facility] Repository (1 source) pioglitazone Drug Allergy 03-26-20 [facility] Repository Medications Current Medications Medication Drug Class(es) Dates Sig (Normalized) Sig (Original) acarbose 100 mg oral tablet (14 sources) alpha-Glucosidase Inhibitor Start: 08-17-2019 End: 02-03-2024 acarbose (Precose) 100 MG tablet Indications: Type 2 diabetes mellitus with stage 3a chronic kidney disease, without long-term current use of insulin (HCC) ([facility]/HCC) Take 1 tablet (100 mg) by mouth [...] 6 (six) hours if needed 08/12/2023 Active [id number] 200 actuat albuterol 0.09 mg/actuat metered dose [...] Date: 09/19/20 Status: Ordered Cyanocobalamin-Liver Extract (Vitamin P41-Qijhn) Tablet (2 sources) Start: 03-26-2023 take 1 tablet by mouth once daily Cyanocobalamin-Liver Extract (Vitamin O79-Wojir) Tablet Active 1 TAB PO every day at noon March 26, 2023 12:00am Start: 03-26-2023 take 1 tablet by valdo th once daily Cyanocobalamin-Liver Extract (Vitamin O92-Brkhf) Tablet Active 1 TAB PO every day at noon March 25, 2023 11:00pm dextromethorphan hydrobromide 1.5 mg/ml / pyrilamine maleate 1.5 mg/ml oral solution (1 source) Uncompetitive C-uohyes-R-aspartate Receptor Antagonist, Sigma-1 Agonist Start: 07-25-2023 take 10 mL by mouth every eight hours [place] DM 7.5-7.5 MG/5ML 10 mL Orally every [...] 08/17/19 Status: Ordered take 1 capsule by [facility] once daily esomeprazole (NexIUM) 20 MG [...] Spacer/Aero-Ho lding Chambers ([facility] Leonor Spacer Adult) [facility] Indications: Chronic obstructive pulmonary disease with acute [...] Ordered Start: 08-12-2023 take 1 capsule by [facility] every twenty-four hours in the morning [...] 12-12-2022 12-12-2022 Chronic Other aftercare (1 source) group home (current) use of anticoagulants; Translations: [JAIL CURRNT USE ANTICOAGULANTS] Onset: 12-11-2022 Episodic Other aftercare (5 sources) Encounter for therapeutic drug level monitoring; Translations: [ENC THERAPEUTC DRUG LEVL MONITORING] Onset: 10-18-2022 Episodic Other aftercare (1 source) Other [facility] (current) drug therapy; Translations: [OTH JAIL CURRENT DRUG THERAPY] Onset: 10-31-2022 Episodic Other [...] 12-12-2022 12-12-2022 Episodic 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; Translations: [JAIL USE ORAL HYPOGLYCEMIC DX] Onset: 08-12-2022 Episodic Other aftercare (1 source) 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; Translations: [JAIL CURRENT USE OF INSULIN] Onset: 02-13-2022 Episodic [...] Interpretation and review of laboratory results Abnormal [facility] PT Coag (PPP) [Time] 27.7 s High [facility] TBH INR 2.90 [facility] Comment on above: DESIRED INR: 2.0-3.0 CONDITIONS NOT LISTED BELOW 2.5-3.5 FOR PROSTHETIC HEART VALVE REPLACEMENT 2.5-3.5 RECURRENT THROMBOSIS [facility] Magnesium [Mass/volume] in S fartun or PlasmaOrdered By: Radames Monteiro on 03-31-2024 Magnesium [Mass/Vol] 1.9 mg/dL Normal 1.9-2.7 [facility] Comment on above: Result Comment: PERF ORMED BY: [place] [address] PATHOLOGIST RECEPTION AGENT BERNIE GRAYSON M.D. Performed By: #### Joe Alcantara, PHOS #### [facility] [address] [place] [address] Phosphate [Mass/volume] in S fartun or PlasmaOrdered By: Radames Monteiro on 03-31-2024 Phosphate [Mass/Vol] 3.7 mg/dL Normal 2.5-4.5 [facility] Comment on above: Performed By: #### Joe Alcantara, PHOS #### [facility] [address] [place] [address] Ambulatory Visit Summaryon 0 10-14-2023 Ambulatory Visit [...] [facility] Patient Education 10-14-19 Patient Education Nephrology Dietary Guidelines to [...] Spinach (cooked), rhubarb, beets, sweet potatoes, and Kosovan chard. ? Peanuts. ? Potato chips, scottish fries, and baked potatoes with skin on. ? Nuts and nut products. ? Chocolate. ? If you regularly take a diuretic medicine, make sure to eat at least 1 or 2 servings of fruits or vegetables that are high in potassium each day. These include: ? Avocado. ? Banana. ? [place], prune, carrot, or tomato juice. ? Baked [...] fish oil, or vitamin B6. ? Take zjxa-hvh-yxhqewp and prescription medicines only as told by your health care provider. These include supplements. What foods sh (more content not included)... Normal [facility] Urology Office/Clinic Noteon 10-14-2023 Urology Office/Clinic Note Chief Complaint Pt is here for 3 month w/ met w/u & [facility] HPI Staff 6 month follow up w/[facility] Pt canceled Cysto/R retro/possible: ureteroscopy, laser, basket, stent placement 04/07/23 due to passing stones Pt was then seen at [facility] on 08/12/23 due to abdominal pain, [...] with voice recognition artificial intelligence software, specifically [employer], [employer] and or [employer]. Substitutions may have occurred due to the inherent limitations of voice recognition and artificial intelligence software. 1. Ureteral stone with hydronephrosis (N13.2: Hydronephrosis with renal and ureteral calculous obstruction) [facility] ER visit 08/12/23 due to R [...] bilateral nephrolithiasis. -See #1 3. 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 [...] Contact Information Williams SHEPHERD MD, URL [address] [place] [phone] Additional Instructions: 06/2024 with [facility] Patient Education Dietary Guidelines to Help Prevent Kidney Stones ICharisse, personally scribed for Dr. Shepherd on 10/14/2023 09:33:56. Electronically signed by (more content not included)... [facility] Comment on above: Result Comment: Elec tronically Signed By: Williams SHEPHERD MD\.br\Date and Time Signed: 10/14/23 09:38 EDT\.br\Electronically Co-Signed By: Charisse Rutherford\.br\Date and Time Co-Signed: 10/14/23 09:34 EDT RAD - MISCon 10-10-2023 RAD - MISC [id number] .00TIFF Normal [facility] Lab Reportson 08-27-2023 Lab Reports [id number] .00TIFF Normal [facility] Lab Reportson 08-25-2023 Lab Reports [id number]#1 .00TIFF [facility] Reports [id number]#1 .00TIFF Normal [facility] Lab Reportson 08-22-2023 Lab Reports [id number]#1 .00TIFF Normal [facility] Lab Reportson 08-21-2023 Lab Reports [id number] .00TIFF Normal [facility] Lab Reports [id number]#1 .00TIFF Normal [facility] ALL BUNon 08-20-2023 Urea nitrogen [Mass/Vol] 12.0 mg/dL 7.0 - 18.0 mg/dL [facility] ALL CARBON DIOXIDEon CO2 [Moles/Vol] 30.1 mmol/L 21.0 - 32.0 mmol/L [facility] ALL CHLORIDEon 08-20-2023 Chloride [Moles/Vol] 104 mmol/L 98 - 107 mmol/L [facility] ALL PHOSPHOROUSon 08-20-2023 Phosphate [Mass/Vol] 4.1 mg/dL 2.6 - 4.7 mg/dL [facility] ALL SODIUMon 08-20-2023 Sodium [Moles/Vol] 141 mmol/L 136 - 145 mmol/L [facility] ALL URIC ACIDon 08-20-2023 Urate [Mass/Vol] 4.4 mg/dL 2.6 - 6.0 mg/dL [facility] CALCIUMon 08-20-2023 Calcium [Mass/Vol] 9.1 mg/dL 8.5 - 10.1 mg/dL [facility] No Panel Informationon 08-20 [facility] CREATININEon 08-20-2023 Creatinine [Mass/Vol] 0.86 mg/dL 0.55 - 1.02 mg/dL [facility] GFR/1.73 sq M.predicted CKD-EPI (S/P/Bld) [Vol rate/Area] >60 60 - PINF [facility] EGFR-NON AF BERMUDIAN >60 60 - PINF [facility] Consent for Procedure/Surger yon 08-15-2023 Consent for Procedure/Surgery [id number]#1 .00TIFF Normal [facility] ED Note-Physicianon 08-15-19 ED Note-Physician [id number]#1. 00TIFF Normal [facility] Lab Reportson 08-15-2023 Lab Reports [id number]#1. 00TIFF Normal [facility] Lab Reports [id number]#1 .00TIFF Normal [facility] Lab Reports [id number]#1 .00TIFF [facility] Operative Reporton Operative Report [id number]#1 .00TIFF Normal [facility] RAD - CT Reporton 08-15-2023 RAD - CT Report [id number]#1. 00TIFF [facility] Ambulatory Visit Summaryon 0 08-13-2023 Ambulatory [...] Williams Venegas Where: [facility] Normal [address] [place] [place] [address]- \.br\ You Need to Schedule the Following Appointments\.br \ Follow Up with ANGELITO AGUIAR, Renato Arzola, URL When: \.br\ Comments:\.br\ sched ureteroscopy\.br \ f/u w/ [facility] scheduled 10/14/23\.br\ Where:\.br\ [facility] [address]\ [place] [address]-\.br\ [id number]\.br\ Medications\.br\ What How Much When Instructions\.br \ [...] including vitamins, herbs, eye drops, creams, and hmvh-isr-rstamkg medicines.\.br\ ? \.br\ Any problems you or [...] you to take them.\.br\ ? \.br\ Taking tbrr-hsl-mpwkwak medicines, vitamins, herbs, and supplements.\.br \ Eating [...] You may also have tests, such [facility] Patient Educationon 08-13-19 Patient Education Nephrology [...] including vitamins, herbs, eye drops, creams, and rtdr-ffg-dyrlpkg medicines. ? Any problems you or family [...] tells you to take them. ? Taking dngj-sif-llflwfk medicines, vitamins, herbs, and supplements. Eating and [...] the pieces (more content not included)... Normal [facility] Urology Office/Clinic Noteon 08-13-2023 Urology Office/Clinic Note Chief Complaint Patient is here for follow up to [facility] ER HPI Staff Patient is here for f/u to [facility] ER on 08/12/23 due to [...] Arzola, URL [facility] [address], [facility] [place] [address] [phone] Additional Instructions: sched ureteroscopy f/u w/ [facility] scheduled 10/14/23 Patient Education Laser Therapy for Kidney Stones I, Amy Gallagher, personally scribed for Dr. Santacruz on 08/13/2023 11:35:03. . Documentation recorded by the scribeAmy, accurately reflects the services(s) I performed and decisions made by me. Authenticated by Dr. Santacruz on 08/13/2023 11:37:02. Problem List/Past Medical History Ongoi (more content not included)... Normal [facility] Comment on above: Result Comment: Elec tronically Signed By: Renato SANTACRUZ MD\.br\Date and Time Signed: 08/13/23 11:37 EST\.br\Electronically Co-Signed By: Amy Gallagher\.br\Date and Time Co-Signed: 08/13/23 11:35 EST COVID/FLU/RSV RT-PCRon 07-25 SARS-CoV-2 (COVID-19) RNA TREASURE+probe Ql (Unsp spec) Negative [facility] Other COVID/FLU/RSV RT-PCR Negative [facility] [employer] Other COVID/FLU/RSV RT-PCR Positive [facility] [employer] Other Calculus Analysison 03-27-20 23 Calcium oxalate dihydrate Infrared spectroscopy (Stone) [Mass fraction] 100 % Invalid Interpretation Code [facility] Comment on above: Performed By: #### 1 [id number] ####[facility] [address] [place] [address] Color (Stone) [employer]oper Invalid Interpretation Code [facility] Comment on above: Performed By: #### 1 [id number] ####[place] [address] [place] [address] Composition Comment Invalid Interpretation Code [facility] Comment on above: Result Comment: Perc entage (Represents the % composition) Performed By: #### 1 [id number] ####[facility] [address] [place] [address] Disclaimer: Comment Invalid Interpretation Code [facility] Comment on above: Result Comment: This test was developed and its performance characteristics determined by [employer]. It has not been cleared or approved by the Food and Drug Administration. Performed at: [address] [id number] PhD Silvestre Esquivel Performed By: #### 1 [id number] ####[facility] [address] [place] [address] Laboratory comment Noam (Report) Comment Invalid Interpretation Code [facility] Comment on above: Result Comment: Coco goode questions regarding Calculi Analysis contact [facility] at: [phone]. Performed By: #### 1 [id number] ####[facility] [address] [place] [address] Please Note: Comment Invalid Interpretation Code [facility] Comment on above: Result Comment: Calc javier report will follow via computer, mail or engagement liaison delivery. Performed By: #### 1 [id number] ####[facility] [address] [place] [address] Size (Stone) [Entitic vol] 6x4 Invalid Interpretation Code [facility] Comment on above: Result Comment: Dejuan le piece received. Performed By: #### 1 [id number] ####[facility] [address] [place] [address] Specimen source subject Nom Comment Invalid Interpretation Code [facility] Comment on above: Result Comment: Not provided Performed By: #### 1 [id number] ####[address] [address] Stone Photo Comment Invalid Interpretation Code [facility] Comment on above: Result Comment: Phot ograph will follow under a separate cover Performed By: #### 1 [id number] ####[address] [place] [address] Weight (Stone) 49 mg Invalid Interpretation Code [facility] Comment on above: Performed By: #### 1 [id number] ####[address] [address] Lab Reportson 03-27-2023 Lab Reports [id number]. 00CD:127 Normal [facility] Activated partial thrombopla stin time (aPTT) in platelet poor plasma by coagulation aOrdered By: Williams Shepherd on 03-26-2023 aPTT Coag (PPP) [Time] 35.9 s 25.1-36.5 [facility] Comment on above: A hematocrit value g reater than 55% may lead to inaccurate results in coagulation testing. Patients having hematocrit values >55% require a special collection tube for coagulation studies. Please contact the laboratory at [phone] for redraw instructions. Basophils Auto (Bld) [#/Vol] Ordered By: Williams Shepherd on 03-26-2023 Basophils (Bld) [#/Vol] 0.0 10*3/uL 0.0-0.2 [facility] Basophils/100 WBC Auto (Bld) Ordered By: Williams Shepherd on 03-26-2023 Basophils/100 WBC (Bld) 0.8 % . [facility] Calcium [Mass/volume] in Ser um or PlasmaOrdered By: Williams Shepherd on 03-26-2023 Calcium [Mass/Vol] 10.0 mg/dL 8.6-10.3 [facility] Carbon dioxide, total [Moles /volume] in Serum or PlasmaOrdered By: Williams Shepherd on 03-26-2023 CO2 [Moles/Vol] 30.0 mmol/L 21.0-31.0 [facility] Chloride [Moles/volume] in S fartun or PlasmaOrdered By: Williams Shepherd on 03-26-2023 Chloride [Moles/Vol] 104 mmol/L 98-107 [facility] Creatinine [Mass/volume] in Serum or PlasmaOrdered By: Williams Shepherd on 03-26-2023 Creatinine [Mass/Vol] 0.85 mg/dL 0.60-1.20 [facility] Eosinophils Auto (Bld) [#/Vo l]Ordered By: Williams Shepherd on 03-26-2023 Eosinophils (Bld) [#/Vol] 0.3 10*3/uL 0.0-0.45 [facility] Eosinophils/100 WBC Auto (Bl d)Ordered By: Williams Shepherd on 03-26-2023 Eosinophils/100 WBC (Bld) 4.3 % . [facility] Erythrocyte distribution wid th Auto (RBC) [Ratio]Ordered By: Williams Shepherd on 03-26-2023 Erythrocyte distribution width (RBC) [Ratio] 14.8 % 11.9-15.3 [facility] Glucose [Mass/volume] in Ser um or PlasmaOrdered By: Williams Shepherd on 03-26-2023 Glucose [Mass/Vol] 111 mg/dL 70-100 [facility] Comment on above: ADA recommended refe rence rangeRandom Glucose Reference Range is dependent on time and content of last meal. Glucose of more than 200 mg/dL in a nonstressed, ambulatory subject supports the diagnosis of Diabetes Mellitus. Hematocrit Auto (Bld) [Volum e fraction]Ordered By: Williams Shepherd on 03-26-2023 Hematocrit (Bld) [Volume fraction] 40.3 % 34.0-46.4 [facility] Hemoglobin [Mass/volume] in BloodOrdered By: Williams Shepherd on 03-26-2023 Hemoglobin (Bld) [Mass/Vol] 13.3 g/dL 11.8-15.4 [facility] INR in Platelet poor plasma by Coagulation assayOrdered By: Williams Shepherd on 03-26-2023 INR Coag (PPP) [Relative time] 2.3 {INR} [facility] Comment on above: INR Therapeutic [...] (Bld) [#/Vol] 5.9 10*3/uL 3.8-11.6 [facility] Lymphocytes Auto (Bld) [#/Vo l]Ordered By: Williams Shepherd on 03-26-2023 Lymphocytes (Bld) [#/Vol] 2.2 10*3/uL 1.00-4.8 [facility] Lymphocytes/100 WBC Auto (Bl d)Ordered By: Williams Shepherd on 03-26-2023 Lymphocytes/100 WBC (Bld) 36.9 % . [facility] MCH Auto (RBC) [Entitic mass ]Ordered By: Williams Shepherd on 03-26-2023 MCH (RBC) [Entitic mass] 31.1 pg 24.7-34.3 [facility] MCHC Auto (RBC) [Mass/Vol]Or dered By: Williams Shepherd on 03-26-2023 MCHC (RBC) [Mass/Vol] 32.9 g/dL 32.0-35.0 [facility] MCV Auto (RBC) [Entitic vol] Ordered By: Williams Shepherd on 03-26-2023 MCV (RBC) [Entitic vol] 94.4 fL 80-100 [facility] Monocytes Auto (Bld) [#/Vol] Ordered By: Williams Shepherd on 03-26-2023 Monocytes (Bld) [#/Vol] 0.5 10*3/uL 0.0-0.8 [facility] Monocytes/100 WBC Auto (Bld) Ordered By: Williams Shepherd on 03-26-2023 Monocytes/100 WBC (Bld) 7.8 % . [facility] Neutrophils Auto (Bld) [#/Vo l]Ordered By: Williams Shepherd on 03-26-2023 Neutrophils (Bld) [#/Vol] 3.0 10*3/uL 1.8-7.7 [facility] Neutrophils/100 WBC Auto (Bl d)Ordered By: Williams Shepherd on 03-26-2023 Neutrophils/100 WBC (Bld) 50.2 % . [facility] No Panel InformationOrdered By: Williams Shepherd on 03-26-2023 Estimated GFR (CKD-EPI) > 60.0 mL/Min [facility] Creatinine Clearance (Chem N/A [facility] Nucleated erythrocytes [Pres ence] in Blood by Automated countOrdered By: Williams Shepherd on 03-26-2023 Nucleated RBC Auto Ql (Bld) 0.3 /100{WBC} 0-0.5 [facility] Platelet mean volume Auto (B ld) [Entitic vol]Ordered By: Williams Shepherd on 03-26-2023 Platelet mean volume (Bld) [Entitic vol] 7.1 fL 6.3-10.7 [facility] Platelets Auto (Bld) [#/Vol] Ordered By: Williams Shepherd on 03-26-2023 Platelets (Bld) [#/Vol] 363 10*3/uL 150-450 [facility] Potassium [Moles/volume] in Serum or PlasmaOrdered By: Williams Shepherd on 03-26-2023 Potassium [Moles/Vol] 5.0 mmol/L 3.5-5.1 [facility] Prothrombin time (PT)Ordered By: Williams Shepherd on 03-26-2023 PT Coag (PPP) [Time] 26.6 s 9.0-12.9 [facility] Comment on above: A hematocrit value g reater than 55% may lead to inaccurate results in coagulation testing. Patients having hematocrit values >55% require a special collection tube for coagulation studies. Please contact the laboratory at [phone] for redraw instructions. RBC Auto (Bld) [#/Vol]Ordere d By: Williams Shepherd on 03-26-2023 RBC (Bld) [#/Vol] 4.27 10*6/uL 3.60-5.00 [facility] Serum or plasma anion gap de terminationOrdered By: Williamschilo Shepherd on 03-26-2023 Anion gap [Moles/Vol] 13.0 mmol/L 6.0-15.0 [facility] Sodium [Moles/volume] in Ser um or PlasmaOrdered By: Williams Shepherd on 03-26-2023 Sodium [Moles/Vol] 142 mmol/L 136-145 [facility] Urea nitrogen [Mass/volume] in Serum or PlasmaOrdered By: Williams Cora on 03-26-2023 Urea nitrogen [Mass/Vol] 12 mg/dL 7-25 [facility] WBC Auto (Bld) [#/Vol]Ordere d By: Williams Cora on 03-26-2023 WBC (Bld) [#/Vol] 5.9 10*3/uL 3.8-11.6 [facility] Consultation Noteon 03-17-20 Consultation Note [id number] .00CD:127 [facility] Lab Reportson 02-12-2023 Lab Reports [id number] .00CD:127 [facility] RAD - MISCon 02-12-2023 RAD - MISC [id number] .00CD:127 [facility] RAD - CT Reporton 02-05-2023 RAD - CT Report [id number] .00CD:127 [facility] RAD - MISCon 02-05-2023 RAD - MISC [id number] .00CD:127 [facility] Ambulatory Visit Summaryon 0 02-03-2023 Ambulatory [...] Appointments Friday 10:45 AM EST With: Williams SHEHPERD MD Where[facility] Patient Educationon 02-04-20 23 Patient Education Urology [...] these instructions at home: Medicines ? Take [id number] and prescription medicines only as told by [...] follow (more content not included)... Normal [facility] Urology Office/Clinic Noteon 02-03-2023 Urology Office/Clinic Note Chief Complaint 16 month follow up w/ CT scan HPI Staff Pt is here today for 16 month follow up w/ CT scan done @[facility] on 01/15/23. CT scan shows partially [...] Information CORA AGUIAR, Williams Venegas, URL [address] [facility] [address] [place] [id number]- Additional Instructions: Patient Education Kidney Stones I, Fanny Bowen, personally scribed for Dr. Shepherd on 02/03/2023 12:04:03. . Documentation recorded by the scribe, Fanny Bowen, accurately reflects the services(s) I performed and decisions made by me. Authenticated by Dr. Shepherd on 02/03/2023 12:37:35. Portions of this record may have been created with voice recognition artificial intelligence software, specifically [employer], [employer] and or [employer]. Substitutions may have occurred due to the inherent limitations of voice recognition and artificial intelligence software. Problem List/Past Medical History Ongoing Abdominal pain Anticoagulated Anxiety BMI 27.0-27.9,adult Depression Diabetes Former smoker Frequent urination Heart murmur History of uterine cancer Hx of fci use of blood thin (more content not included)... Normal [facility] Comment on above: Result Comment: Elec tronically Signed By: Williams SHEPHERD MD\.br\Date and Time Signed: 02/03/23 12:39 EDT\.br\Electronically Co-Signed By: Fanny Bowen\.br\Date and Time Co-Signed: 02/03/23 12:04 EDT PROTIMEon 12-02-2022 INR Coag (PPP) [Relative time] 3.62 {INR} Normal [facility] Comment on above: Performed By: #### P T #### [facility] [address] [address] [address] Tg Fierro INR GUIDELINES SEE BELOW Normal [facility] Comment on above: Result Comment: LAURENCE RED INR: 2.0 - 3.0 CONDITIONS NOT LISTED BELOW 2.5 - 3.5 FOR PROSTHETIC HEART VALVE REPLACEMENT 2.5 - 3.5 RECURRENT THROMBOSIS Performed By: #### P T #### [facility] [address] [address] [address] Tg Fierro PT Coag (PPP) [Time] 35.7 s Critically high 9.0-11.6 [facility] Comment on above: Performed By: #### P T #### [facility] [address] [address] [address] Tg Fierro PROTIMEon 11-11-2022 INR Coag (PPP) [Relative time] 1.90 {INR} Normal [facility] Comment on above: Performed By: #### P T #### [facility] [address] [place] [address] Dr. Tg Fierro INR GUIDELINES SEE BELOW Normal [facility] Comment on above: Result Comment: LAURENCE RED INR: 2.0 - 3.0 CONDITIONS NOT LISTED BELOW 2.5 - 3.5 FOR PROSTHETIC HEART VALVE REPLACEMENT 2.5 - 3.5 RECURRENT THROMBOSIS Performed By: #### P T #### [facility] [address] [place] [address] Dr. Tg Fierro PT Coag (PPP) [Time] 19.4 s Critically high 9.0-11.6 [facility] Comment on above: Performed By: #### P T #### [facility] [address] [place] [address] Dr. Tg Fierro CBC AUTO DIFFon 10-25-2022 BASO # 0.0 103/ul Normal 0.0-0.1 [facility] Comment on above: Performed By: #### P T #### [facility] [address] [place] [address] Dr. Tg Fierro Basophils/100 WBC (Bld) 0.5 % Normal 0.2-2.0 [facility] Comment on above: Performed By: #### P T #### [facility] [address] [place] [address] Dr. Tg Fierro EO # 0.2 103/ul Normal 0.0-0.7 [facility] Comment on above: Performed By: #### P T #### [facility] [address] [place] [address] Dr. Tg Fierro Eosinophils/100 WBC (Bld) 2.7 % Normal 0.9-7.0 [facility] Comment on above: Performed By: #### P T #### [facility] [address] [place] [address] Dr. Tg Fierro Erythrocyte distribution width (RBC) [Ratio] 13.4 % Normal 11.0-15.0 [facility] Comment on above: Performed By: #### P T #### [facility] [address] [place] [address] Dr. Tg Fierro Hematocrit (Bld) [Volume fraction] 40.7 % Normal 36.0-48.0 [facility] Comment on above: Performed By: #### P T #### [facility] [address] [place] [address] Dr. Tg Fierro Hemoglobin (Bld) [Mass/Vol] 13.2 g/dL Normal 12.0-16.0 [facility] Comment on above: Performed By: #### P T #### [facility] [address] [place] [address] Dr. Tg Fierro IG # 0.03 10e3/ul Normal 0.00-0.03 [facility] Comment on above: Performed By: #### P T #### [facility] [address] [place] [address] Dr. Tg Fierro IG % 0.5 % Normal 0.0-0.5 [facility] Comment on above: Performed By: #### P T #### [facility] [address] [place] [address] Dr. Tg Fierro LYMPH # 2.1 103/ul Normal 1.2-3.8 [facility] Comment on above: Performed By: #### P T #### [facility] [address] [place] [address] Dr. Tg Fierro Lymphocytes/100 WBC (Bld) 34.9 % Normal 20.5-60.0 [facility] Comment on above: Performed By: #### P T #### [facility] [address] [place] [address] Dr. Tg Fierro MANUAL DIFF REQ NO Normal [facility] Comment on above: Performed By: #### P T #### [facility] [address] [place] [address] Dr. Tg Fierro MCH (RBC) [Entitic mass] 30.5 pg Normal 26.7-34.0 [facility] Comment on above: Performed By: #### P T #### [facility] [address] [place] [address] Dr. Tg Fierro MCHC (RBC) [Mass/Vol] 32.4 g/dL Normal 29.9-35.2 [facility] Comment on above: Performed By: #### P T #### [facility] [address] [address] [address] Tg Fierro MCV (RBC) [Entitic vol] 94.0 fL Normal 81.0-99.0 [facility] Comment on above: Performed By: #### P T #### [facility] [address] [address] [address] Tg Fierro MONO # 0.4 103/ul Normal 0.3-0.8 [facility] Comment on above: Performed By: #### P T #### [facility] [address] [place] [address] Dr. Tg Fierro Monocytes/100 WBC (Bld) 7.1 % Normal 1.7-12.0 [facility] Comment on above: Performed By: #### P T #### [facility] [address] [place] [address] Dr. Tg Fierro NEUT # 3.2 103/ul Normal 1.4-6.5 [facility] Comment on above: Performed By: #### P T #### [facility] [address] [place] [address] Dr. Tg Fierro Neutrophils/100 WBC (Bld) 54.3 % Normal 43.0-75.0 [facility] Comment on above: Performed By: #### P T #### [facility] [address] [place] [address] Dr. Tg Fierro Platelet mean volume (Bld) [Entitic vol] 8.7 fL Critically low 9.5-13.5 [facility] Comment on above: Performed By: #### P T #### [facility] [address] [place] [address] Dr. Tg Fierro PLT 295 103/ul Normal 150-450 [facility] Comment on above: Performed By: #### P T #### [facility] [address] [place] [address] Dr. Tg Fierro RBC 4.33 106/ul Normal 4.20-5.40 [facility] Comment on above: Performed By: #### P T #### [facility] [address] [place] [address] Dr. Tg Fierro WBC 5.9 103/ul Normal 4.0-11.0 [facility] Comment on above: Performed By: #### P T #### [facility] [address] [place] [address] Dr. Tg Fierro PROF 14(COMP METB)on 023 Albumin [Mass/Vol] 3.8 g/dL Normal 3.4-5.0 [facility] Comment on above: Performed By: #### C MP #### [facility] [address] [place] [address] Dr. Tg Fierro Albumin/Globulin [Mass ratio] 1.2 {ratio} Normal [facility] Comment on above: Performed By: #### C MP #### [facility] [address] [place] [address] Dr. Tg Fierro ALP [Catalytic activity/Vol] 49 U/L Normal 46-116 [facility] Comment on above: Performed By: #### C MP #### [facility] [address] [place] [address] Dr. Tg Fierro ALT [Catalytic activity/Vol] 21 U/L Normal 14-59 [facility] Comment on above: Performed By: #### C MP #### [facility] [address] [place] [address] Dr. Tg Fierro Anion gap [Moles/Vol] 13.3 mmol/L Normal [facility] Comment on above: Performed By: #### C MP #### [facility] [address] [place] [address] Dr. Tg Fierro AST [Catalytic activity/Vol] 14 U/L Critically low 15-37 [facility] Comment on above: Performed By: #### C MP #### [facility] [address] [place] [address] Dr. Tg Fierro Bilirubin [Mass/Vol] 0.5 mg/dL Normal 0.2-1.0 [facility] Comment on above: Performed By: #### C MP #### [facility] [address] [address] [address] Tg Fierro Calcium [Mass/Vol] 9.5 mg/dL Normal 8.5-10.1 [facility] Comment on above: Performed By: #### C MP #### [facility] [address] [address] [address] Tg Fierro Chloride [Moles/Vol] 104 mmol/L Normal 98-107 [facility] Comment on above: Performed By: #### C MP #### [facility] [address] [address] [address] Tg Fierro CO2 [Moles/Vol] 29.3 mmol/L Normal 21.0-32.0 [facility] Comment on above: Performed By: #### C MP #### [facility] [address] [address] [address] Tg Fierro Creatinine [Mass/Vol] 0.93 mg/dL Normal 0.55-1.02 [facility] Comment on above: Performed By: #### C MP #### [facility] [address] [address] [address] Tg Fierro EGFR-AF BERMUDIAN >60 Normal >=60 [facility] Comment on above: Performed By: #### C MP #### [facility] [address] [address] [address] Tg Fierro EGFR-NON AF BERMUDIAN 59 mL/min/1.73m2 Critically low >=60 [facility] Comment on above: Performed By: #### C MP #### [facility] [address] [address] [address] Tg Fierro Globulin (S) [Mass/Vol] 3.2 g/dL Normal [facility] Comment on above: Performed By: #### C MP #### [facility] [address] [address] [address] Tg Fierro Glucose [Mass/Vol] 186 mg/dL Critically high 74-[address] [facility] Comment on above: Performed By: #### C MP #### [facility] [address] [address] [address] Tg Fierro Potassium [Moles/Vol] 4.6 mmol/L Normal 3.5-5.1 [facility] Comment on above: Performed By: #### C MP #### [facility] [address] [address] [address] Tg Fierro Protein [Mass/Vol] 7.0 g/dL Normal 6.4-8.2 [facility] Comment on above: Performed By: #### C MP #### [facility] [address] [address] [address] Tg Fierro Sodium [Moles/Vol] 142 mmol/L Normal 136-145 [facility] Comment on above: Performed By: #### C MP #### [facility] [address] [address] [address] Tg Fierro Urea nitrogen [Mass/Vol] 15.0 mg/dL Normal 7.0-18.0 [facility] Comment on above: Performed By: #### C MP #### [facility] [address] [address] [address] Tg Fierro Urea nitrogen/Creatinine [Mass ratio] 16.1 mg/mg Normal [facility] Comment on above: Performed By: #### C MP #### [facility] [address] [address] [address] Tg Fierro SED RATE [facility] 2022 SED RATE 9 mm/hr Normal <=30 [facility] Comment on above: Performed By: #### C MP #### [facility] [address] [address] [address] Tg Fierro PROTIMEon 10-14-2022 INR Coag (PPP) [Relative time] 1.94 {INR} Normal [facility] Comment on above: Performed By: #### P T #### [facility] [address] [address] [address] Tg Fierro INR GUIDELINES SEE BELOW Normal [facility] Comment on above: Result Comment: LAURENCE RED INR: 2.0 - 3.0 CONDITIONS NOT LISTED BELOW 2.5 - 3.5 FOR PROSTHETIC HEART VALVE REPLACEMENT 2.5 - 3.5 RECURRENT THROMBOSIS Performed By: #### P T #### [facility] [address] [place] [address] Dr. Tg Fierro PT Coag (PPP) [Time] 19.8 s Critically high 9.0-11.6 [facility] Comment on above: Performed By: #### P T #### [facility] [address] [place] [address] Dr. Tg Fierro CBC AUTO DIFFon 09-24-2022 BASO # 0.1 103/ul Normal 0.0-0.1 [facility] Comment on above: Performed By: #### P T #### [facility] [address] [place] [address] Dr. Tg Fierro Basophils/100 WBC (Bld) 0.7 % Normal 0.2-2.0 [facility] Comment on above: Performed By: #### P T #### [facility] [address] [place] [address] Dr. Tg Fierro EO # 0.3 103/ul Normal 0.0-0.7 [facility] Comment on above: Performed By: #### P T #### [facility] [address] [place] [address] Dr. Tg Fierro Eosinophils/100 WBC (Bld) 3.6 % Normal 0.9-7.0 [facility] Comment on above: Performed By: #### P T #### [facility] [address] [place] [address] Dr. Tg Fierro Erythrocyte distribution width (RBC) [Ratio] 13.4 % Normal 11.0-15.0 [facility] Comment on above: Performed By: #### P T #### [facility] [address] [place] [address] Dr. Tg Fierro Hematocrit (Bld) [Volume fraction] 38.4 % Normal 36.0-48.0 [facility] Comment on above: Performed By: #### P T #### [facility] [address] [place] [address] Dr. Tg Fierro Hemoglobin (Bld) [Mass/Vol] 12.7 g/dL Normal 12.0-16.0 [facility] Comment on above: Performed By: #### P T #### [facility] [address] [place] [address] Dr. Tg iFerro IG # 0.05 10e3/ul Critically high 0.00-0.03 [facility] Comment on above: Performed By: #### P T #### [facility] [address] [place] [address] Dr. Tg Fierro IG % 0.7 % Critically high 0.0-0.5 [facility] Comment on above: Performed By: #### P T #### [facility] [address] [place] [address] Dr. Tg Fierro LYMPH # 2.6 103/ul Normal 1.2-3.8 [facility] Comment on above: Performed By: #### P T #### [facility] [address] [place] [address] Dr. Tg Fierro Lymphocytes/100 WBC (Bld) 34.2 % Normal 20.5-60.0 [facility] Comment on above: Performed By: #### P T #### [facility] [address] [place] [address] Dr. Tg Fierro MANUAL DIFF REQ NO Normal [facility] Comment on above: Performed By: #### P T #### [facility] [address] [place] [address] Dr. Tg Fierro MCH (RBC) [Entitic mass] 31.2 pg Normal 26.7-34.0 [facility] Comment on above: Performed By: #### P T #### [facility] [address] [place] [address] Dr. Tg Fierro MCHC (RBC) [Mass/Vol] 33.1 g/dL Normal 29.9-35.2 [facility] Comment on above: Performed By: #### P T #### [facility] [address] [place] [address] Dr. Tg Fierro MCV (RBC) [Entitic vol] 94.3 fL Normal 81.0-99.0 [facility] Comment on above: Performed By: #### P T #### [facility] [address] [place] [address] Dr. Tg Fierro MONO # 0.6 103/ul Normal 0.3-0.8 [facility] Comment on above: Performed By: #### P T #### [facility] [address] [place] [address] Dr. Tg Fierro Monocytes/100 WBC (Bld) 8.1 % Normal 1.7-12.0 [facility] Comment on above: Performed By: #### P T #### [facility] [address] [place] [address] Dr. Tg Fierro NEUT # 4.1 103/ul Normal 1.4-6.5 [facility] Comment on above: Performed By: #### P T #### [facility] [address] [place] [address] Dr. Tg Fierro Neutrophils/100 WBC (Bld) 52.7 % Normal 43.0-75.0 [facility] Comment on above: Performed By: #### P T #### [facility] [address] [place] [address] Dr. Tg Fierro Platelet mean volume (Bld) [Entitic vol] 8.7 fL Critically low 9.5-13.5 [facility] Comment on above: Performed By: #### P T #### [facility] [address] [place] [address] Dr. Tg Fierro PLT 278 103/ul Normal 150-450 [facility] Comment on above: Performed By: #### P T #### [facility] [address] [place] [address] Dr. Tg Fierro RBC 4.07 106/ul Critically low 4.20-5.40 [facility] Comment on above: Performed By: #### P T #### [facility] [address] [place] [address] Dr. Tg Fierro WBC 7.7 103/ul Normal 4.0-11.0 [facility] Comment on above: Performed By: #### P T #### [facility] [address] [address] [address] Tg Fierro PROF 14(COMP METB)on 023 Albumin [Mass/Vol] 3.9 g/dL Normal 3.4-5.0 [facility] Comment on above: Performed By: #### C MP #### [facility] [address] [place] [address] Dr. Tg Fierro Albumin/Globulin [Mass ratio] 1.4 {ratio} Normal [facility] Comment on above: Performed By: #### C MP #### [facility] [address] [place] [address] Dr. Tg Fierro ALP [Catalytic activity/Vol] 59 U/L Normal 46-116 [facility] Comment on above: Performed By: #### C MP #### [facility] [address] [place] [address] Dr. Tg Fierro ALT [Catalytic activity/Vol] 21 U/L Normal 14-59 [facility] Comment on above: Performed By: #### C MP #### [facility] [address] [place] [address] Dr. Tg Firero Anion gap [Moles/Vol] 10.8 mmol/L Normal [facility] Comment on above: Performed By: #### C MP #### [facility] [address] [place] [address] Dr. Tg Fierro AST [Catalytic activity/Vol] 9 U/L Critically low 15-37 [facility] Comment on above: Performed By: #### C MP #### [facility] [address] [place] [address] Dr. Tg Fierro Bilirubin [Mass/Vol] 0.3 mg/dL Normal 0.2-1.0 [facility] Comment on above: Performed By: #### C MP #### [facility] [address] [place] [address] Dr. Tg Fierro Calcium [Mass/Vol] 9.1 mg/dL Normal 8.5-10.1 [facility] Comment on above: Performed By: #### C MP #### [facility] [address] [place] [address] Dr. Tg Fierro Chloride [Moles/Vol] 104 mmol/L Normal 98-107 [facility] Comment on above: Performed By: #### C MP #### [facility] [address] [address] [address] Tg Fierro CO2 [Moles/Vol] 28.3 mmol/L Normal 21.0-32.0 [facility] Comment on above: Performed By: #### C MP #### [facility] [address] [place] [address] Dr. Tg Fierro Creatinine [Mass/Vol] 0.86 mg/dL Normal 0.55-1.02 [facility] Comment on above: Performed By: #### C MP #### [facility] [address] [place] [address] Dr. Tg Fierro EGFR-AF BERMUDIAN >60 Normal >=60 [facility] Comment on above: Performed By: #### C MP #### [facility] [address] [place] [address] Dr. Tg Fierro EGFR-NON AF BERMUDIAN >60 Normal >=60 [facility] Comment on above: Performed By: #### C MP #### [facility] [address] [place] [address] Dr. Tg Fierro Globulin (S) [Mass/Vol] 2.7 g/dL Normal [facility] Comment on above: Performed By: #### C MP #### [facility] [address] [place] [address] Dr. Tg Fierro Glucose [Mass/Vol] 120 mg/dL Critically high 74-[address] [facility] Comment on above: Performed By: #### C MP #### [facility] [address] [place] [address] Dr. Tg Fierro Potassium [Moles/Vol] 4.1 mmol/L Normal 3.5-5.1 [facility] Comment on above: Performed By: #### C MP #### [facility] [address] [place] [address] Dr. Tg Fierro Protein [Mass/Vol] 6.6 g/dL Normal 6.4-8.2 [facility] Comment on above: Performed By: #### C MP #### [facility] [address] [place] [address] Dr. Tg Fierro Sodium [Moles/Vol] 139 mmol/L Normal 136-145 [facility] Comment on above: Performed By: #### C MP #### [facility] [address] [address] [address] Tg Fierro Urea nitrogen [Mass/Vol] 13.0 mg/dL Normal 7.0-18.0 [facility] Comment on above: Performed By: #### C MP #### [facility] [address] [place] [address] Dr. Tg Fierro Urea nitrogen/Creatinine [Mass ratio] 15.1 mg/mg Normal [facility] Comment on above: Performed By: #### C MP #### [facility] [address] [place] [address] Dr. Tg Fierro PROTIMEon 09-24-2022 INR Coag (PPP) [Relative time] 1.35 {INR} Normal [facility] Comment on above: Performed By: #### P T #### [facility] [address] [place] [address] Dr. Tg Fierro INR GUIDELINES SEE BELOW Normal [facility] Comment on above: Result Comment: LAURENCE RED INR: 2.0 - 3.0 CONDITIONS NOT LISTED BELOW 2.5 - 3.5 FOR PROSTHETIC HEART VALVE REPLACEMENT 2.5 - 3.5 RECURRENT THROMBOSIS Performed By: #### P T #### [facility] [address] [place] [address] Dr. Tg Fierro PT Coag (PPP) [Time] 14.1 s Critically high 9.0-11.6 [facility] Comment on above: Performed By: #### P T #### [facility] [address] [place] [address] Dr. Tg Fierro SED RATE WESTERGRENon 2022 SED RATE 8 mm/hr Normal <=30 [facility] Comment on above: Performed By: #### C MP #### [facility] [address] [address] [address] Tg Fierro PROTIMEon 09-09-2022 INR Coag (PPP) [Relative time] 1.23 {INR} Normal [facility] Comment on above: Performed By: #### P T #### [facility] [address] [address] [address] Tg Fierro INR GUIDELINES SEE BELOW Normal [facility] Comment on above: Result Comment: LAURENCE RED INR: 2.0 - 3.0 CONDITIONS NOT LISTED BELOW 2.5 - 3.5 FOR PROSTHETIC HEART VALVE REPLACEMENT 2.5 - 3.5 RECURRENT THROMBOSIS Performed By: #### P T #### [facility] [address] [address] [address] Tg Fierro PT Coag (PPP) [Time] 12.9 s Critically high 9.0-11.6 [facility] Comment on above: Performed By: #### P T #### [facility] [address] [place] [address] Dr. Tg Fierro ECHOCARDIO M/2D COMPLETEon 0 09-02-2022 ECHOCARDIO M/2D COMPLETE Patient: WILDA SEN Exam Date: 09/02/2022 : 1945 Gender:F Ordering : DR JAYME PEREZ . Admission #: [id number] Family : Order #: [id number] CLICK HERE TO VIEW EXAM ECHOCARDIOGRAM REPORT [...] Bender M.D. on 09/03/2022 at 17:25 Normal [facility] GLYCOHEMOGLOBIN A1Con 2022 ADA RECOMMENDATION SEE BELOW Normal [facility] Comment on above: Result Comment: ADA RECOMMENDED LIMIT 4.0 - 6.0 ADA THERAPEUTIC TARGET < 7.0 ACTION SUGGESTED > 7.0 Performed By: #### A 1C #### [facility] [address] [place] [address] Dr. Tg Fierro Glucose [Mass/Vol] 148 mg/dL Normal [facility] Comment on above: Performed By: #### A 1C #### [facility] [address] [address] [address] Tg Fierro HbA1c (Bld) [Mass fraction] 6.8 % Critically high 4.5-6.2 [facility] Comment on above: Performed By: #### A 1C #### [facility] [address] [address] [address] Tg Fierro CBC AUTO DIFFon 08-05-2022 BASO # 0.1 103/ul Normal 0.0-0.1 [facility] Comment on above: Performed By: #### C BC #### [facility] [address] [address] [address] Tg Fierro Basophils/100 WBC (Bld) 0.8 % Normal 0.2-2.0 [facility] Comment on above: Performed By: #### C BC #### [facility] [address] [address] [address] Tg Fierro EO # 0.5 103/ul Normal 0.0-0.7 [facility] Comment on above: Performed By: #### C BC #### [facility] [address] [address] [address] Tg Fierro Eosinophils/100 WBC (Bld) 7.3 % Critically high 0.9-7.0 [facility] Comment on above: Performed By: #### C BC #### [facility] [address] [place] [address] Dr. Tg Fierro Erythrocyte distribution width (RBC) [Ratio] 13.4 % Normal 11.0-15.0 [facility] Comment on above: Performed By: #### C BC #### [facility] [address] [place] [address] Dr. Tg Fierro Hematocrit (Bld) [Volume fraction] 37.1 % Normal 36.0-48.0 [facility] Comment on above: Performed By: #### C BC #### [facility] [address] [place] [address] Dr. Tg Fierro Hemoglobin (Bld) [Mass/Vol] 12.9 g/dL Normal 12.0-16.0 [facility] Comment on above: Performed By: #### C BC #### [facility] [address] [place] [address] Dr. Tg Fierro IG # 0.03 10e3/ul Normal 0.00-0.03 [facility] Comment on above: Performed By: #### C BC #### [facility] [address] [place] [address] Dr. Tg Fierro IG % 0.5 % Normal 0.0-0.5 [facility] Comment on above: Performed By: #### C BC #### [facility] [address] [place] [address] Dr. Tg Fierro LYMPH # 2.3 103/ul Normal 1.2-3.8 [facility] Comment on above: Performed By: #### C BC #### [facility] [address] [place] [address] Dr. Tg Fierro Lymphocytes/100 WBC (Bld) 34.9 % Normal 20.5-60.0 [facility] Comment on above: Performed By: #### C BC #### [facility] [address] [place] [address] Dr. Tg Fierro MANUAL DIFF REQ NO Normal [facility] Comment on above: Performed By: #### C BC #### [facility] [address] [place] [address] Dr. Tg Fierro MCH (RBC) [Entitic mass] 31.0 pg Normal 26.7-34.0 [facility] Comment on above: Performed By: #### C BC #### [facility] [address] [place] [address] Dr. Tg Fierro MCHC (RBC) [Mass/Vol] 34.8 g/dL Normal 29.9-35.2 [facility] Comment on above: Performed By: #### C BC #### [facility] [address] [place] [address] Dr. Tg Fierro MCV (RBC) [Entitic vol] 89.2 fL Normal 81.0-99.0 [facility] Comment on above: Performed By: #### C BC #### [facility] [address] [place] [address] Dr. Tg Fierro MONO # 0.4 103/ul Normal 0.3-0.8 [facility] Comment on above: Performed By: #### C BC #### [facility] [address] [place] [address] Dr. Tg Fierro Monocytes/100 WBC (Bld) 6.1 % Normal 1.7-12.0 [facility] Comment on above: Performed By: #### C BC #### [facility] [address] [address] [address] Tg Fierro NEUT # 3.3 103/ul Normal 1.4-6.5 [facility] Comment on above: Performed By: #### C BC #### [facility] [address] [address] [address] Tg Fierro Neutrophils/100 WBC (Bld) 50.4 % Normal 43.0-75.0 [facility] Comment on above: Performed By: #### C BC #### [facility] [address] [address] [address] Tg Fierro Platelet mean volume (Bld) [Entitic vol] 8.6 fL Critically low 9.5-13.5 [facility] Comment on above: Performed By: #### C BC #### [facility] [address] [place] [address] Dr. Tg Fierro PLT 336 103/ul Normal 150-450 [facility] Comment on above: Performed By: #### C BC #### [facility] [address] [address] [address] Tg Fierro RBC 4.16 106/ul Critically low 4.20-5.40 [facility] Comment on above: Performed By: #### C BC #### [facility] [address] [place] [address] Dr. Tg Fierro WBC 6.4 103/ul Normal 4.0-11.0 [facility] Comment on above: Performed By: #### C BC #### [facility] [address] [place] [address] Dr. Tg Fierro PROF 14(COMP METB)on 023 Albumin [Mass/Vol] 3.9 g/dL Normal 3.4-5.0 [facility] Comment on above: Performed By: #### P T #### [facility] [address] [place] [address] Dr. Tg Fierro Albumin/Globulin [Mass ratio] 1.3 {ratio} Normal [facility] Comment on above: Performed By: #### P T #### [facility] [address] [address] [address] Tg Fierro ALP [Catalytic activity/Vol] 60 U/L Normal 46-116 [facility] Comment on above: Performed By: #### P T #### [facility] [address] [place] [address] Dr. Tg Fierro ALT [Catalytic activity/Vol] 21 U/L Normal 14-59 [facility] Comment on above: Performed By: #### P T #### [facility] [address] [place] [address] Dr. Tg Fierro Anion gap [Moles/Vol] 15.2 mmol/L Normal [facility] Comment on above: Performed By: #### P T #### [facility] [address] [place] [address] Dr. Tg Fierro AST [Catalytic activity/Vol] 14 U/L Critically low 15-37 [facility] Comment on above: Performed By: #### P T #### [facility] [address] [place] [address] Dr. Tg Fierro Bilirubin [Mass/Vol] 0.4 mg/dL Normal 0.2-1.0 [facility] Comment on above: Performed By: #### P T #### [facility] [address] [place] [address] Dr. Tg Fierro Calcium [Mass/Vol] 9.3 mg/dL Normal 8.5-10.1 [facility] Comment on above: Performed By: #### P T #### [facility] [address] [place] [address] Dr. Tg Fierro Chloride [Moles/Vol] 102 mmol/L Normal 98-107 [facility] Comment on above: Performed By: #### P T #### [facility] [address] [place] [address] Dr. Tg Fierro CO2 [Moles/Vol] 26.8 mmol/L Normal 21.0-32.0 The [facility] Comment on above: Performed By: #### P T #### [facility] [address] [place] [address] Dr. Tg Fierro Creatinine [Mass/Vol] 0.74 mg/dL Normal 0.55-1.02 [facility] Comment on above: Performed By: #### P T #### [facility] [address] [address] [address] Tg Fierro EGFR-AF BERMUDIAN >60 Normal >=60 [facility] Comment on above: Performed By: #### P T #### [facility] [address] [address] [address] Tg Fierro EGFR-NON AF BERMUDIAN >60 Normal >=60 [facility] Comment on above: Performed By: #### P T #### [facility] [address] [address] [address] Tg Fierro Globulin (S) [Mass/Vol] 3.1 g/dL Normal [facility] Comment on above: Performed By: #### P T #### [facility] [address] [place] [address] Dr. Tg Fierro Glucose [Mass/Vol] 148 mg/dL Critically high 74-106 [facility] Comment on above: Performed By: #### P T #### [facility] [address] [address] [address] Tg Fierro Potassium [Moles/Vol] 4.0 mmol/L Normal 3.5-5.1 [facility] Comment on above: Performed By: #### P T #### [facility] [address] [address] [address] Tg Fierro Protein [Mass/Vol] 7.0 g/dL Normal 6.4-8.2 [facility] Comment on above: Performed By: #### P T #### [facility] [address] [address] [address] Tg Fierro Sodium [Moles/Vol] 140 mmol/L Normal 136-145 [facility] Comment on above: Performed By: #### P T #### [facility] [address] [place] [address] Dr. Tg Fierro Urea nitrogen [Mass/Vol] 12.0 mg/dL Normal 7.0-18.0 [facility] Comment on above: Performed By: #### P T #### [facility] [address] [place] [address] Dr. Tg Fierro Urea nitrogen/Creatinine [Mass ratio] 16.2 mg/mg Normal [facility] Comment on above: Performed By: #### P T #### [facility] [address] [place] [address] Dr. Tg Fierro SED RATE WESTERGRENon 2022 SED RATE 30 mm/hr Normal <=30 [facility] Comment on above: Performed By: #### S EDR #### [facility] [address] [place] [address] Dr. Tg Fierro CBC AUTO DIFFon 04-15-2022 BASO # 0.1 103/ul Normal 0.0-0.1 [facility] Comment on above: Performed By: #### C BC #### [facility] [address] [place] [address] Dr. Tg Fierro Basophils/100 WBC (Bld) 0.6 % Normal 0.2-2.0 [facility] Comment on above: Performed By: #### C BC #### [facility] [address] [place] [address] Dr. Tg Fierro EO # 0.2 103/ul Normal 0.0-0.7 [facility] Comment on above: Performed By: #### C BC #### [facility] [address] [place] [address] Dr. Tg Fierro Eosinophils/100 WBC (Bld) 3.1 % Normal 0.9-7.0 [facility] Comment on above: Performed By: #### C BC #### [facility] [address] [place] [address] Dr. Tg Fierro Erythrocyte distribution width (RBC) [Ratio] 13.6 % Normal 11.0-15.0 [facility] Comment on above: Performed By: #### C BC #### [facility] [address] [place] [address] Dr. Tg Fierro Hematocrit (Bld) [Volume fraction] 42.3 % Normal 36.0-48.0 [facility] Comment on above: Performed By: #### C BC #### [facility] [address] [place] [address] Dr. Tg Fierro Hemoglobin (Bld) [Mass/Vol] 13.2 g/dL Normal 12.0-16.0 [facility] Comment on above: Performed By: #### C BC #### [facility] [address] [place] [address] Dr. Tg Fierro IG # 0.04 10e3/ul Critically high 0.00-0.03 [facility] Comment on above: Performed By: #### C BC #### [facility] [address] [place] [address] Dr. Tg Fierro IG % 0.5 % Normal 0.0-0.5 [facility] Comment on above: Performed By: #### C BC #### [facility] [address] [place] [address] Dr. Tg Fierro LYMPH # 2.5 103/ul Normal 1.2-3.8 [facility] Comment on above: Performed By: #### C BC #### [facility] [address] [place] [address] Dr. Tg Fierro Lymphocytes/100 WBC (Bld) 31.6 % Normal 20.5-60.0 [facility] Comment on above: Performed By: #### C BC #### [facility] [address] [place] [address] Dr. Tg Fierro MANUAL DIFF REQ NO Normal [facility] Comment on above: Performed By: #### C BC #### [facility] [address] [place] [address] Dr. Tg Fierro MCH (RBC) [Entitic mass] 30.3 pg Normal 26.7-34.0 [facility] Comment on above: Performed By: #### C BC #### [facility] [address] [place] [address] Dr. Tg Fierro MCHC (RBC) [Mass/Vol] 31.2 g/dL Normal 29.9-35.2 [facility] Comment on above: Performed By: #### C BC #### [facility] [address] [address] [address] Tg Fierro MCV (RBC) [Entitic vol] 97.0 fL Normal 81.0-99.0 [facility] Comment on above: Performed By: #### C BC #### [facility] [address] [address] [address] Tg Fierro MONO # 0.5 103/ul Normal 0.3-0.8 [facility] Comment on above: Performed By: #### C BC #### [facility] [address] [place] [address] Dr. Tg Fierro Monocytes/100 WBC (Bld) 6.3 % Normal 1.7-12.0 [facility] Comment on above: Performed By: #### C BC #### [facility] [address] [place] [address] Dr. Tg Fierro NEUT # 4.5 103/ul Normal 1.4-6.5 [facility] Comment on above: Performed By: #### C BC #### [facility] [address] [place] [address] Dr. Tg Fierro Neutrophils/100 WBC (Bld) 57.9 % Normal 43.0-75.0 [facility] Comment on above: Performed By: #### C BC #### [facility] [address] [place] [address] Dr. Tg Fierro Platelet mean volume (Bld) [Entitic vol] 8.6 fL Critically low 9.5-13.5 [facility] Comment on above: Performed By: #### C BC #### [facility] [address] [place] [address] Dr. Tg Fierro PLT 295 103/ul Normal 150-450 [facility] Comment on above: Performed By: #### C BC #### [facility] [address] [place] [address] Dr. Tg Fierro RBC 4.36 106/ul Normal 4.20-5.40 [facility] Comment on above: Performed By: #### C BC #### [facility] [address] [place] [address] Dr. Tg Fierro WBC 7.8 103/ul Normal 4.0-11.0 [facility] Comment on above: Performed By: #### C BC #### [facility] [address] [place] [address] Dr. Tg Fierro PROF 14(COMP METB)on 022 Albumin [Mass/Vol] 4.5 g/dL Normal 3.4-5.0 [facility] Comment on above: Performed By: #### C MP #### [facility] [address] [place] [address] Dr. Tg Fierro Albumin/Globulin [Mass ratio] 1.5 {ratio} Normal [facility] Comment on above: Performed By: #### C MP #### [facility] [address] [place] [address] Dr. Tg Fierro ALP [Catalytic activity/Vol] 62 U/L Normal 46-116 [facility] Comment on above: Performed By: #### C MP #### [facility] [address] [place] [address] Dr. Tg Fierro ALT [Catalytic activity/Vol] 25 U/L Normal 14-59 [facility] Comment on above: Performed By: #### C MP #### [facility] [address] [place] [address] Dr. Tg Fierro Anion gap [Moles/Vol] 10.6 mmol/L Normal [facility] Comment on above: Performed By: #### C MP #### [facility] [address] [place] [address] Dr. Tg Fierro AST [Catalytic activity/Vol] 12 U/L Critically low 15-37 [facility] Comment on above: Performed By: #### C MP #### [facility] [address] [place] [address] Dr. Tg Fierro Bilirubin [Mass/Vol] 0.5 mg/dL Normal 0.2-1.0 [facility] Comment on above: Performed By: #### C MP #### [facility] [address] [address] [address] Tg Fierro Calcium [Mass/Vol] 9.8 mg/dL Normal 8.5-10.1 [facility] Comment on above: Performed By: #### C MP #### [facility] [address] [place] [address] Dr. Tg Fierro Chloride [Moles/Vol] 102 mmol/L Normal 98-107 [facility] Comment on above: Performed By: #### C MP #### [facility] [address] [place] [address] Dr. Tg Fierro CO2 [Moles/Vol] 31.8 mmol/L Normal 21.0-32.0 [facility] Comment on above: Performed By: #### C MP #### [facility] [address] [place] [address] Dr. Tg Fierro Creatinine [Mass/Vol] 0.88 mg/dL Normal 0.55-1.02 [facility] Comment on above: Performed By: #### C MP #### [facility] [address] [place] [address] Dr. Tg Fierro EGFR-AF BERMUDIAN >60 Normal >=60 [facility] Comment on above: Performed By: #### C MP #### [facility] [address] [place] [address] Dr. Tg Fierro EGFR-NON AF BERMUDIAN >60 Normal >=60 [facility] Comment on above: Performed By: #### C MP #### [facility] [address] [place] [address] Dr. Tg Fierro Globulin (S) [Mass/Vol] 3.1 g/dL Normal [facility] Comment on above: Performed By: #### C MP #### [facility] [address] [place] [address] Dr. Tg Fierro Glucose [Mass/Vol] 187 mg/dL Critically high 74-106 [facility] [facility] Comment on above: Performed By: #### C MP #### [facility] [address] [place] [address] Dr. Tg Fierro Potassium [Moles/Vol] 4.4 mmol/L Normal 3.5-5.1 [facility] Comment on above: Performed By: #### C MP #### [facility] [address] [address] [address] Tg Fierro Protein [Mass/Vol] 7.6 g/dL Normal 6.4-8.2 [facility] Comment on above: Performed By: #### C MP #### [facility] [address] [address] [address] Tg Fierro Sodium [Moles/Vol] 140 mmol/L Normal 136-145 [facility] Comment on above: Performed By: #### C MP #### [facility] [address] [place] [address] Dr. Tg Fierro Urea nitrogen [Mass/Vol] 14.0 mg/dL Normal 7.0-18.0 [facility] Comment on above: Performed By: #### C MP #### [facility] [address] [place] [address] Dr. Tg Fierro Urea nitrogen/Creatinine [Mass ratio] 15.9 mg/mg Normal [facility] Comment on above: Performed By: #### C MP #### [facility] [address] [place] [address] Dr. Tg Fierro [facility] 5 mm/hr Normal <=30 [facility] Comment on above: Performed By: #### S EDR #### [facility] [address] [place] [address] Dr. Tg Fierro CBC AUTO DIFFon 02-07-2022 BASO # 0.0 103/ul Normal 0.0-0.1 [facility] Comment on above: Performed By: #### P T #### [facility] [address] [place] [address] Dr. Tg Fierro Basophils/100 WBC (Bld) 0.6 % Normal 0.2-2.0 [facility] Comment on above: Performed By: #### P T #### [facility] [address] [place] [address] Dr. Tg Fierro EO # 0.4 103/ul Normal 0.0-0.7 [facility] Comment on above: Performed By: #### P T #### [facility] [address] [place] [address] Dr. Tg Fierro Eosinophils/100 WBC (Bld) 5.4 % Normal 0.9-7.0 [facility] Comment on above: Performed By: #### P T #### [facility] [address] [place] [address] Dr. Tg Fierro Erythrocyte distribution width (RBC) [Ratio] 13.5 % Normal 11.0-15.0 [facility] Comment on above: Performed By: #### P T #### [facility] [address] [place] [address] Dr. Tg Fierro Hematocrit (Bld) [Volume fraction] 39.4 % Normal 36.0-48.0 [facility] Comment on above: Performed By: #### P T #### [facility] [address] [place] [address] Dr. Tg Fierro Hemoglobin (Bld) [Mass/Vol] 12.8 g/dL Normal 12.0-16.0 [facility] Comment on above: Performed By: #### P T #### [facility] [address] [place] [address] Dr. Tg Fierro IG # 0.02 10e3/ul Normal 0.00-0.03 [facility] Comment on above: Performed By: #### P T #### [facility] [address] [place] [address] Dr. Tg Fierro IG % 0.3 % Normal 0.0-0.5 [facility] Comment on above: Performed By: #### P T #### [facility] [address] [place] [address] Dr. Tg Fierro LYMPH # 2.4 103/ul Normal 1.2-3.8 [facility] Comment on above: Performed By: #### P T #### [facility] [address] [place] [address] Dr. Tg Fierro Lymphocytes/100 WBC (Bld) 36.2 % Normal 20.5-60.0 [facility] Comment on above: Performed By: #### P T #### [facility] [address] [place] [address] Dr. Tg Fierro MANUAL DIFF REQ NO Normal [facility] Comment on above: Performed By: #### P T #### [facility] [address] [place] [address] Dr. Tg Fierro MCH (RBC) [Entitic mass] 31.0 pg Normal 26.7-34.0 [facility] Comment on above: Performed By: #### P T #### [facility] [address] [place] [address] Dr. Tg Fierro MCHC (RBC) [Mass/Vol] 32.5 g/dL Normal 29.9-35.2 [facility] Comment on above: Performed By: #### P T #### [facility] [address] [place] [address] Dr. Tg Fierro MCV (RBC) [Entitic vol] 95.4 fL Normal 81.0-99.0 [facility] Comment on above: Performed By: #### P T #### [facility] [address] [place] [address] Dr. Tg Fierro MONO # 0.5 103/ul Normal 0.3-0.8 [facility] Comment on above: Performed By: #### P T #### [facility] [address] [place] [address] Dr. Tg Fierro Monocytes/100 WBC (Bld) 8.0 % Normal 1.7-12.0 [facility] Comment on above: Performed By: #### P T #### [facility] [address] [place] [address] Dr. Tg Fierro NEUT # 3.3 103/ul Normal 1.4-6.5 [facility] Comment on above: Performed By: #### P T #### [facility] [address] [place] [address] Dr. Tg Fierro Neutrophils/100 WBC (Bld) 49.5 % Normal 43.0-75.0 [facility] Comment on above: Performed By: #### P T #### [facility] [address] [address] [address] Tg Fierro Platelet mean volume (Bld) [Entitic vol] 8.7 fL Critically low 9.5-13.5 [facility] Comment on above: Performed By: #### P T #### [facility] [address] [address] [address] Tg Fierro PLT 276 103/ul Normal 150-450 [facility] Comment on above: Performed By: #### P T #### [facility] [address] [address] [address] Tg Fierro RBC 4.13 106/ul Critically low 4.20-5.40 [facility] Comment on above: Performed By: #### P T #### [facility] [address] [address] [address] Tg Fierro WBC 6.7 103/ul Normal 4.0-11.0 [facility] Comment on above: Performed By: #### P T #### [facility] [address] [address] [address] gT Fierro GLYCOHEMOGLOBIN A1Con 2021 ADA RECOMMENDATION SEE BELOW Normal [facility] Comment on above: Result Comment: ADA RECOMMENDED LIMIT 4.0 - 6.0 ADA THERAPEUTIC TARGET < 7.0 ACTION SUGGESTED > 7.0 Performed By: #### A 1C #### [facility] [address] [address] [address] Tg Fierro Glucose [Mass/Vol] 151 mg/dL Normal [facility] Comment on above: Performed By: #### A 1C #### [facility] [address] [address] [address] Tg Fierro HbA1c (Bld) [Mass fraction] 6.9 % Critically high 4.5-6.2 [facility] Comment on above: Performed By: #### A 1C #### [facility] [address] [place] [address] Dr. Tg Fierro PROF 14(COMP METB)on 07-28-2 022 Albumin [Mass/Vol] 3.8 g/dL Normal 3.4-5.0 [facility] Comment on above: Performed By: #### P T #### [facility] [address] [place] [address] Dr. Tg Fierro Albumin/Globulin [Mass ratio] 1.3 {ratio} Normal [facility] Comment on above: Performed By: #### P T #### [facility] [address] [address] [address] Tg Fierro ALP [Catalytic activity/Vol] 43 U/L Critically low 46-116 [facility] Comment on above: Performed By: #### P T #### [facility] [address] [place] [address] Dr. Tg Fierro ALT [Catalytic activity/Vol] 19 U/L Normal 14-59 [facility] Comment on above: Performed By: #### P T #### [facility] [address] [place] [address] Dr. Tg Fierro Anion gap [Moles/Vol] 13.7 mmol/L Normal [facility] Comment on above: Performed By: #### P T #### [facility] [address] [place] [address] Dr. Tg Fierro AST [Catalytic activity/Vol] 11 U/L Critically low 15-37 [facility] Comment on above: Performed By: #### P T #### [facility] [address] [place] [address] Dr. Tg Fierro Bilirubin [Mass/Vol] 0.4 mg/dL Normal 0.2-1.0 [facility] Comment on above: Performed By: #### P T #### [facility] [address] [place] [address] Dr. Tg Fierro Calcium [Mass/Vol] 9.1 mg/dL Normal 8.5-10.1 [facility] Comment on above: Performed By: #### P T #### [facility] [address] [place] [address] Dr. Tg Fierro Chloride [Moles/Vol] 104 mmol/L Normal 98-107 [facility] Comment on above: Performed By: #### P T #### [facility] [address] [address] [address] Tg Fierro CO2 [Moles/Vol] 28.5 mmol/L Normal 21.0-32.0 [facility] Comment on above: Performed By: #### P T #### [facility] [address] [address] [address] Tg Fierro Creatinine [Mass/Vol] 0.77 mg/dL Normal 0.55-1.02 [facility] Comment on above: Performed By: #### P T #### [facility] [address] [address] [address] Tg Fierro EGFR-AF BERMUDIAN >60 Normal >=60 [facility] Comment on above: Performed By: #### P T #### [facility] [address] [place] [address] Dr. Tg Fierro EGFR-NON AF BERMUDIAN >60 Normal >=60 [facility] Comment on above: Performed By: #### P T #### [facility] [address] [place] [address] Dr. Tg Fierro Globulin (S) [Mass/Vol] 3.0 g/dL Normal [facility] Comment on above: Performed By: #### P T #### [facility] [address] [place] [address] Dr. Tg Fierro Glucose [Mass/Vol] 124 mg/dL Critically high 74-106 [facility] Comment on above: Performed By: #### P T #### [facility] [address] [place] [address] Dr. Tg Fierro Potassium [Moles/Vol] 4.2 mmol/L Normal 3.5-5.1 [facility] Comment on above: Performed By: #### P T #### [facility] [address] [place] [address] Dr. Tg Fierro Protein [Mass/Vol] 6.8 g/dL Normal 6.4-8.2 [facility] Comment on above: Performed By: #### P T #### [facility] [address] [address] [address] Tg Fierro Sodium [Moles/Vol] 142 mmol/L Normal 136-145 [facility] Comment on above: Performed By: #### P T #### [facility] [address] [address] [address] Tg Fierro Urea nitrogen [Mass/Vol] 12.0 mg/dL Normal 7.0-18.0 [facility] Comment on above: Performed By: #### P T #### [facility] [address] [address] [address] Tg Fierro Urea nitrogen/Creatinine [Mass ratio] 15.6 mg/mg Normal [facility] Comment on above: Performed By: #### P T #### [facility] [address] [address] [address] Tg Fierro SED RATE [facility] 2021 SED RATE 8 mm/hr Normal <=30 [facility] Comment on above: Performed By: #### C MP #### [facility] [address] [address] [address] Tg Fierro COVID Quick Testingon 2020 Result Positive [facility] Other Vital Signs Date Time Vital Sign Value Performing Clinician Facility 10-14-2023 09:09-0400 Body temperature 98.6 [degF] Williams SHEPHERD [facility] 10-14-2023 09:09-0400 Diastolic blood pressure 61 mm[Hg] Williams Derby[facility]pot [facility] 10-14-2023 09:09-0400 Heart rate 80 /min Williams [facility] 10-14-2023 09:09-0400 Respiratory rate 16 /min Williams SHEPHERD [facility] 10-14-2023 09:09-0400 Systolic blood pressure 115 mm[Hg] Williams SHEPHERD [facility] 08-13-2023 10:47-0500 Blood Pressure Location Renato SANTACRUZ [facility] 08-13-2023 10:47-0500 Diastolic blood pressure 62 mm[Hg] Renato SANTACRUZ [facility] 08-13-2023 10:47-0500 Heart rate 82 /min Renato SANTACRUZ [facility] 08-13-2023 10:47-0500 Respiratory rate 16 /min Renato SANTACRUZ [facility] 08-13-2023 10:47-0500 Systolic blood pressure 105 mm[Hg] Renato SANTACRUZ [facility] 08-07-2023 09:48-0500 Body height 160 cm Jayme Perez MD Work Phone: [facility] 08-07-2023 09:48-0500 Body mass index (BMI) [Ratio] 24.45 kg/m2 Jayme Perez MD Work Phone: [facility] 08-07-2023 09:48-0500 Body weight 62.6 kg Jayme Perez MD Work Phone: [facility] 08-07-2023 09:48-0500 Heart rate 57 /min Jayme Perez MD Work Phone: [facility] 08-07-2023 09:48-0500 SaO2% (BldA) [Mass fraction] 98 % Jayme Perez MD Work Phone: [facility] 07-25-2023 09:20-0500 Body height 160.02 cm Lou Glover Other [facility] Other 07-25-2023 09:20-0500 Body mass index (BMI) [Ratio] 23.91 kg/m2 Lou Glover Other [facility] 07-25-2023 09:20-0500 Body temperature 97.7 [degF] Lou Glover Other [facility] Other 07-25-2023 09:20-0500 Body weight 61.24 kg Lou Glover Other [facility] Other 07-25-2023 09:20-0500 Diastolic blood pressure 74 mm[Hg] Lou Glover Other [facility] 07-25-2023 09:20-0500 Respiratory rate 18 /min Lou Glover Other [facility] 07-25-2023 09:20-0500 SaO2% (BldA) [Mass fraction] 96 % Lou Glover Other [facility] 07-25-2023 09:20-0500 Systolic blood pressure 120 mm[Hg] Lou Glover Other [facility] 03-26-2023 13:15-0400 Body height 160.02 cm MD Jayme Perez Work Phone: [facility] 03-26-2023 13:15-0400 Body temperature 98.2 [degF] MD Jayme Perez Work Phone: [facility] 03-26-2023 13:15-0400 Body weight 66 kg MD Jayme Perez Work Phone: [facility] 03-26-2023 13:15-0400 Diastolic blood pressure 71 mm[Hg] MD Jayme Perez Work Phone: [facility] 03-26-2023 13:15-0400 Heart rate 87 /min MD Jayme Perez Work Phone: [facility] 03-26-2023 13:15-0400 Respiratory rate 16 /min MD Jayme Perez Work Phone: [facility] 03-26-2023 13:15-0400 SaO2% (BldA) [Mass fraction] 97 % MD Jayme Perez Work Phone: [facility] 03-26-2023 13:15-0400 Systolic blood pressure 117 mm[Hg] MD Jayme Perez Work Phone: [facility] 05-21-2021 13:15-0500 Body height 160.02 cm Astrid Olivia Other [facility] Other 05-21-2021 13:15-0500 Body mass index (BMI) [Ratio] 23.91 kg/m2 Astrid Olivia Other [facility] Other 05-21-2021 13:15-0500 Body temperature 97.3 [degF] Astrid Ryanault Other [facility] Other 05-21-2021 13:15-0500 Body weight 61.24 kg Astrid Olivia Other [facility] Other 05-21-2021 13:15-0500 SaO2% (BldA) [Mass fraction] 94 % Astrid Olivia Other [facility] Other Encounters Encounter Date Encounter Type Care Provider Facility Start: 04-15-2024 End: 04-15-2024 ambulatory JAYME PEREZ Not Available Start: 04-13-2024 End: 04-13-2024 Clinisync Result Encounter Edward J Hemeyer MD Work Phone: [facility] Unsolicited Start: 04-13-2024 End: 04-13-2024 Clinisync Result Encounter Jayme Perez MD Work Phone: [facility] Unsolicited Start: 03-31-2024 End: 03-31-2024 Patient encounter procedure MD Jayme Perez Work Phone: [facility] [address] Work Phone: Start: 03-31-2024 End: 03-31-2024 ambulatory MD Jayme Perez Work Phone: [facility] Work Phone: Start: 12-31-2023 End: 12-31-2023 ambulatory FELICIA FARMER Not Available Start: 10-14-2023 End: 10-15-2023 ambulatory Williams SHEPHERD Facility:[facility] Start: 10-14-2023 End: 10-14-2023 Patient encounter procedure Williams SHEPHERD [facility] Start: 09-01-2023 End: 09-01-2023 ambulatory FELICIA FARMER Not Available Start: 08-20-2023 Clinisync Result Encounter Generic External Data Provider [facility] Unsolicited Start: 08-20-2023 Clinisync Result Encounter Generic External Data Provider [facility] Unsolicited Start: 08-14-2023 End: 08-15-2023 ambulatory Renato SANTACRUZ Facility:[id number] Start: 08-13-2023 End: 08-14-2023 ambulatory Renato SANTACRUZ Facility:[facility] Start: 08-13-2023 End: 08-13-2023 Patient encounter procedure Renato SANTACRUZ [facility] Start: 08-07-2023 End: 08-07-2023 Office outpatient visit [...] 07-25-2023 End: 07-25-2023 ambulatory Lou Glover Other [facility] Other Start: 07-25-2023 Office outpatient vi sit 25 minutes Lou Glover [facility] Start: 07-10-2023 End: 07-10-2023 ambulatory FELICIA Magalie FARMER Not Available Start: 07-02-2023 End: 07-02-2023 ambulatory FELICIA D JOSE MIGUELER Not Available Start: 06-25-2023 End: 06-25-2023 ambulatory FELICIA D CORETTAHLER Not Available Start: 06-18-2023 End: 06-18-2023 ambulatory FELICIA D CORETTAHLER Not Available Start: 04-07-2023 End: 04-07-2023 Departed Referred MD Jayme Perez Work Phone: [facility] [place] Start: 04-07-2023 End: 04-08-2023 ambulatory MD Jayme Perez Work Phone: [facility] Work Phone: Start: 03-26-2023 End: 03-26-2023 Patient encounter procedure MD Jayme Perez Work Phone: [facility] Work Phone: Start: 03-20-2023 End: 03-21-2023 ambulatory Williams SHEPHERD Facility:[facility] Start: 03-20-2023 End: 03-20-2023 Lab Drop off Williams Venegas COR[facility] Start: 03-20-2023 End: 03-20-2023 Patient encounter procedure Williams Venegas CORA [facility] Start: 02-03-2023 End: 02-04-2023 ambulatory Williams SHEPHERD Facility: [facility] Start: 11-11-2022 End: 12-11-[address] JAYME [...] 05-21-2021 End: 05-21-2021 ambulatory Astrid Baker Other [facility] Other Start: 05-21-2021 Office outpatient vi sit 15 minutes Astrid Baker [facility] Procedures Date Procedure [...] Start: 12-30-2025 Glaucoma screening Diabetes: Retinopathy Screening [facility] Start: 05-19-2025 Glaucoma screening Diabetes: Retinopathy Screening [facility] Start: 08-04-2024 End: 08-04-2024 Patient encounter procedure 08/04/2024 1:00 PM EST Office Visit [facility] [address] [place] [id number] Felicia Farmer DO [address] [place] [address] [facility] Start: 07-12-2024 ambulatory Ambulatory Facility:[facility] Start: 05-22-2024 Medicare Annual Wellness (AWV) Medicare Annual Wellness (AWV) [facility] Start: 04-15-2024 End: 04-15-2024 Patient encounter procedure 04/15/2024 2:30 PM EDT Office Visit [facility] [address] [facility] [address] [place] [address] Jayme Perez MD [address] [facility] [place] [address] (Fax) [facility] Start: 03-14-2024 Influenza vaccination Influenza Vaccine (#1) [facility] Start: 10-26-2023 Urine screening for protein Diabetes: Urine Protein Screening [facility] Start: 09-01-2023 End: 09-01-2023 Patient encounter procedure 09/01/2023 10:30 AM EST Office Visit [facility] [address] [place] [id number] Felicia Farmer DO [address] [place] [address] [facility] Start: 05-06-2023 Hemoglobin A1c measurement Diabetes: Hemoglobin A1C [facility] Start: 04-07-2023 Abdomen endoscopy OR Cysto/Retro/Stent/Stone/ Holmium Laser (Right) [facility] Start: 03-14-2023 Influenza vaccination Influenza Vaccine (#1) [facility] Start: 1951 Pneumococcal Vaccine: 65+ Years (1 - PCV) Pneumococcal Vaccine: 65+ Years (1 - PCV) [facility] Start: 1951 Pneumococcal Vaccine: 65+ Years (1 of 2 - PCV) Pneumococcal Vaccine: 65+ Years (1 of 2 - PCV) [facility] Immunizations Immunization Date Immunization Notes Care Provider Yaya oswald NEGATED: Highlighted row has not occurred!08-13-2023 influenza virus vaccine, unspecified formulation Renato SANTACRUZ [facility] NEGATED: Highlighted row has not occurred!08-13-2023 SARS-CoV-2 mRNA (tozinameran 5y-11y) vaccine Renato SANTACRUZ [facility] NEGATED: Highlighted row has not occurred!09-21-2019 influenza virus vaccine, live, attenuated, for intranasal use [facility] NEGATED: Highlighted row has not occurred!08-20-2019 influenza virus vaccine, live, attenuated, for intranasal use [facility] Payers Date Payer Category Payer Self-pay [id number] 2023 Private Health Insurance [employer] Lucinda MUNOZ SENIOR SUPPLEMENT [id number] 2023-Present [address] [address] [place] [address] Supplement [id number] 2022 Unknown BERMUDIAN CONT[employer] NT[employer] BER[employer] [id number] 2022-Present [address] [address] [place] [address] [id number] 2022 Medicare [id number] 2002 Medicare MEDICARE MEDICAR E PART B [id number] 2002-[place] [address] Medicare [id number] 1959 Medicare [id number] [id number] 1959 Unknown [id number] 1946 Unknown [id number] 2.16.840.1.241116.3.579 .2.593 1946 Unknown [id number] 2.16.840.1.657802.3.579 .2.59 1946 Unknown [id number] 2.16.840.1.148969.3.579 .2.593 1946 Unknown [id number] 2.16.840.1.466205.3.579 .2.593 1946 Unknown [id number] 2.16.840.1.235595.3.579 .2.593 1946 Unknown [id number] 2.16.840.1.588689.3.579 .2.593 1946 Unknown [id number] 2.16.840.1.522685.3.579 .2.593 1946 Unknown [id number] 2.16.840.1.977825.3.579 .2.593 1946 Unknown [id number] 2.16.840.1.148291.3.579 .2.593 1946 Unknown [id number] 2.16.840.1.230651.3.579 .2.593 1946 Unknown [id number] 2.16.840.1.609496.3.579 .2.593 1946 Unknown [id number] 2.16.840.1.985363.3.579 .2.593 1946 Unknown [id number] 2.16.840.1.276348.3.579 .2.593 1946 Unknown [id number] 2.16.840.1.198050.3.579 .2.727 1946 Unknown [id number] 2.16.840.1.346516.3.579 .2.727 1946 Unknown [id number] 2.16.840.1.619161.3.579 .2.727 1946 Unknown [id number] 2.16.840.1.899419.3.579 .2.727 1946 Unknown [id number] 2.16.840.1.878806.3.579 .2.72 1946 Unknown [id number] 2.16.840.1.304384.3.579 .2.727 1946 Unknown [id number] 2.16.840.1.242415.3.579 .2.72 1946 Unknown [id number] 2.16.840.1.438291.3.579 .2.1259 1946 Unknown [id number] [id number] .2.1259 1945 Unknown [id number] 2.16.840.1.585094.3.579 .2.9 1945 Unknown [id number] 2.16.840.1.615389.3.579 .2.1259 1945 Unknown [id number] 2.16.840.1.385565.3.579 .2.1258 1945 Unknown [id number] 2.16.840.1.127387.3.579 .2.9 1945 Unknown [id number] 2.16.840.1.655174.3.579 .2.1258 1945 Unknown [id number] 2.16.840.1.449074.3.579 .2.9 1945 Unknown [id number] 2.16.840.1.763600.3.579 .2.125 Unknown [id number] 2.16.840.1.463279.3.579 .2.531 Social History Date Type Detail Facility Sex Assigned At [facility] Other Start: 02-03-2023 End: 08-07-2023 Tobacco smoking status Ex-smoker (finding) [facility] Tobacco smoking status Never [facility] Start: 12-11-2022 End: 05-22-2023 Sex Assigned At Female [facility] Start: 1945 Sex Assigned At [facility] End: 07-14-1986 History of tobacco use [...] 10-14-2023 Functional Status N/A [facility] 08-13-2023 Functional Status N/A [facility] Clinical Notes 02-21-2022 to 10-14-2023 Jayme [...] include: ?8 oz (237 mL) of milk, uxetfsf-utqqrvszlchj-snndg milk, and calcium-fortifiedfruit juice. Calcium-fortified means that [...] ?Spinach (cooked), rhubarb, beets, sweet potatoes, and Kosovan chard. ?Peanuts. ?Potato chips, scottish fries, and baked potatoes with skin on. ?Nuts and nut products. ?Chocolate. If you regularly take a diuretic medicine, make sure to eat at least 1 or 2 servings of fruits or vegetables that are high in potassium each day. These include: ?Avocado. ?Banana. ?[place], prune, carrot, or tomato juice. ?Baked potato. [...] magnesium, fish oil, or vitamin B6. Take cogs-hen-yqhnzuy and prescription medicines only as told by [...] Casseroles. Pizza. Lasagna. Frozen meals. Potato chips. Tanzanian fries. The items listed above may not [...] provider. Document Revised: 10/10/2022 Document Reviewed: 10/10/2022 [employer] Patient Education 2022 [employer]. Follow Up Care 08/13/2023 10:19:44 With:CORA AGUIAR, Williams Venegas, URL Address: [address] [id number]- When: Unknown [facility] 08-13-2023 Hospital Discharge instructions Patient [...] including vitamins, herbs, eye drops, creams, and dblc-mqg-npdptpw medicines. Any problems you or family members [...] provider tells you to take them. ?Taking wfof-esy-xlokljk medicines, vitamins, herbs, and supplements. Eating and [...] provider. Document Revised: 11/06/2022 Document Reviewed: 03/04/2022 [employer] Patient Education 2022 [employer]. Follow Up Care 08/12/2023 14:37:00 With:ANGELITO AGUIAR, Renato Arzola, URL Address: [facility] [address] , [place] [address]- [phone] When: Unknown Comments:sched ureteroscopyf/u w/ [facility] scheduled 10/14/23 [facility] 08-07-2023 History of Present illness Narrative [...] 0.55 - 1.02 mg/dL Final [facility] EGFR-AF BERMUDIAN 07/22/2023 >60 >=60 Final [facility] EGFR-NON AF BERMUDIAN 07/22/2023 55 (L) >=60 Final BUN CREATININE [...] cardiovascular disease. 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 documented in this encounter [facility] 07-25-2023 Evaluation note Encounter Date Diagnosis [...] care as directed rx of steroid and [place], cool mist humidification. May use Tylenol as directed. Immediate eval for signs of respiratory distress, difficulty breathing poor PO intake, signs of dehydration, fever, or other concerning symptoms. Otherwise, follow up with PCP in 2-3 days. Patient verbalizes understanding and is agreeable to treatment plan. Patient sent home in stable condition. [facility] Other 08-11-2022 NotePROCEDURE: XR FOOT LT MIN 3 VIEWS COMPARISON: None. HISTORY: Pain in left foot FINDINGS: BONES:No acute fracture or dislocation. Mild enthesopathic spurring of the calcaneus. SOFT TISSUES:Negative. No visible soft tissue swelling. EFFUSION:None visible. OTHER: Negative. IMPRESSION: Mild enthesopathic spurring of the calcaneus Electronically authenticated by: BLANCA ZAVALA Date: 2022-02-21 [facility]ments Appointment Date:07/12/2024 10:45:00 AM Scheduled Provider:Williams SHEPHERD MD Location:[facility] Appointment Type:URO Office Visit [facility] Evaluation + Plan note Future Appointments Appointment Date:07/12/2024 10:45:00 AM Scheduled Provider:Williams SHEPHERD MD Location:[facility] Appointment Type:URO Office Visit Diagnostic Tests Pending * Calculi Analysis [facility] Future App[facility]ments Appointment Date:10/14/2023 09:15:00 AM Scheduled Provider:Williams SHEPHERD MD Location:[facility] Appointment Type:URO Office Visit Appointment Date:07/12/2024 10:45:00 AM Scheduled Provider:Williams SHEPHERD MD Location:[facility] Appointment Type:URO Office Visit [facility] evaluation noteNort [employer] Other evalunygkl noteNo assessment information available [facility] Work Phone: evaluqoajf note* Diagnosis Chronic diastolic heart failure (CMS/HCC)- Primary Chronic diastolic heart failure 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 (CMS/HCC) Atrial fibrillation Type 2 diabetes mellitus with stage 3a chronic kidney disease, without long-term current use of insulin (HCC) (CMS/HCC) Stage 3a chronic kidney disease (HCC) (CMS/HCC) Microalbuminuria Proteinuria Former smoker Personal history of tobacco use, presenting hazards to health 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, 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 Psoriatic arthropathy ([facility]/HCC) Psoriatic arthropathy Gastroesophageal reflux disease without esophagitis Esophageal reflux documented in this encounter [facility] - [facility] [employer] Other History general Narrative - Reported* Type Description Date Medical History Arthritis Medical History diabetes mallitus Surgical History cataract surgery [facility] [employer] Other Hospital course Narrative No data available for this section [facility] Hospital Discharge instructions No data available for this section [facility] [employer] Progress note No data available for this section [facility] [employer] Summary Purpose Family History No Family History Records Found Relationship Condition Age at Onset Recorded Date/T gerald Not Specified Heart disease Unknown father Cystic fibrosis Unknown Relationship Condition Age at Onset Recorded Date/T gerald mother Heart disease Unknown father Cystic fibrosis Unknown father Unknown mother Unknown Advance Directives No Advanced Directives Records Found Advance Directive Response Recorded Date/ Time Advance Directives No May 06, 2017 4:21pm Advance Directive Response Recorded Date/ Time Advance Directives No May 06, 2017 5:21pm Chief Complaint and Reason for Visit Chief Complaint Kidney Stones Kidney Stones Additional Source Comments INFORMATION SOURCE (unrecogn ized section and content) DATE CREATED AUTHOR 12/20/2022 [facility] DATE CREATED AUTHOR AUTHOR'S ORGANIZ ATION 10/15/2023 [facility] DATE CREATED AUTHOR AUTHOR'S ORGANIZ ATION 04/10/2024 [facility] DATE CREATED AUTHOR AUTHOR'S ORGANIZ ATION 04/17/2024 [facility] EPIC Patient Care team informatio n (unrecognized section and content) Team Status: Active Member Role Status Dates Jayme Perez MD Primary Care Provider Active Team Status: Inactive Member Role Status Dates Jayme Perez MD Primary Care Provider Active Williams Shepherd MD Attending Provider Active Emblem Drawer In Relationship Specialty Start Date End Date Jayme Perez MD [address] [place] [address] (Fax) PCP - General Family Medicine 11/25/22 Jayme Perez MD [address] [place] [phone] (Fax) PCP - ACO Reach 12/05/22 Emblem Drawer In Relationship Specialty Start Date End Date Jayme Perez MD [address] [place] [address] (Fax) PCP - General Family Medicine 11/25/22 Jayme Perez MD [address] [place] [address] (Fax) PCP - ACO Reach 12/05/22 Team Status: Inactive Member Role Status Dates Jayme Perez MD Primary Care Provider Active Start: March 31, 2024 End: March 31, 2024 Radames Monteiro MD Attending Provider Active St art: March 31, 2024 End: March 31, 2024 Emblem Drawer In Relationship Specialty Start Date End Date Jayme Perez MD [address] [place] [address] (Fax) PCP - General Family Medicine 11/25/22 Jayme Perez MD [address] [place] [address] (Fax) PCP - ACO Reach 12/05/22 Felicia Farmer DO [address] [place] [phone] Referring Physician Ophthalmology 08/21/23 Renato Santacruz MD [address] [place] [address] Referring Physician Urology 08/21/23 Radames Monteiro MD [address] [facility] [address] [phone] Referring Physician Rheumatology 08/21/23 Goals (unrecognized section [...] BE BASED ON THE PRIMARY CLINICAL RECORDS. [employer] provides no warranty or guarantee of the accuracy or completeness of information in this document.
[2024-04-22 11:38] LABS: Estimated GFR (African America >60 (>=60 mL/min/1.73m^2); Estimated GFR (Non-African Ame >60 (>=60 mL/min/1.73m^2)
== END 2024-04-22 11:14 | disposition home or self-care (01) ==
LOC: LAB 11:13
PROVIDERS: PCP Family Medicine; Visit Provider Family Medicine
DX: R63.4 Abnormal weight loss (principal); E11.22 Type 2 diabetes mellitus with diabetic chronic kidney disease; N18.31 Chronic kidney disease, stage 3a; Z85.820 Personal history of malignant melanoma of skin; Z87.891 Personal history of nicotine dependence; E61.1 Iron deficiency; L40.50 Arthropathic psoriasis, unspecified; D84.9 Immunodeficiency, unspecified; K57.30 Diverticulosis of large intestine without perforation or abscess without bleeding; N20.0 Calculus of kidney
CPT/HCPCS: 36415; 74177; 82565; Q9967

== ENCOUNTER 2024-05-14 08:47 | Outpatient (OUT) | payer MEDICARE, SELFPAY ==
--- NOTE | 2024-05-14 08:49 | CT_ITS ---
[address] [address] Patient Name: KASEY SEN MRN: [id number] date: 1945 Sex: F Assigned Patient Location: CT Current Patient Location: Accession/Order Number: [id number] Exam Date: 05/14/2024 09:00 Report Date: 05/15/2024 07:23 At the request of: FAYE PEREZ Procedure: CT chest w con EXAMINATION: CT chest w con HISTORY: Unexplained Weight Loss, Former Smoker, Immunosuppressed [ COMPARISON: CT chest 09/21/2019 TECHNIQUE: Multi-planar CT images were obtained without and/or with IV contrast as indicated by examination type. Axial, Coronal, and Sagittal images. Dose reduction techniques were achieved by using automated exposure control and/or adjustment of mA and/or kV according to patient size and/or use of iterative reconstruction technique. FINDINGS: LUNGS: Stable surgical changes within right lung base and mild peripheral scarring. No acute infiltrates or significant chronic interstitial changes or emphysematous changes. PLEURA: No mass, effusion, or pneumothorax. VASCULATURE: No abnormality. VCITORINO: No mass or adenopathy. MEDIASTINUM: No mass or adenopathy. CARDIAC: No enlargement or pericardial thickening.. Coronary artery calcifications: Marked AORTA: No aneurysm or dissection. CHEST WALL: No mass or axillary adenopathy. BONES: Stable postsurgical/traumatic changes of right ribs. No bone lesion or fracture. LIMITED ABDOMEN: No suspicious findings Limited images of the upper abdomen. OTHER: Negative. CT/CT chest w con IMPRESSION: 1. No new or suspicious findings to account for patient's symptoms. 2. Stable surgical changes of right lung and ribs. 3. Marked atherosclerotic coronary artery disease. Electronically authenticated by: MYRTLE KHOURY Date: 05/15/2024 07:23
--- OUTSIDE RECORDS SUMMARY | 2024-05-14 08:54 | XMS_ITS | CCD ---
Author Organization [facility] Care Team Providers Care Brick Shader Name Role Phone Astrid Baker Unavailable CAYETANO, [...] Primary Care Provider Jayme Perez MD Unavailable [phone] Renato SANTACRUZ Attending Unavailable Williams SHEPHERD Attending Unavailable Williams SHEPHERD Attending Unavailable Williams SHEPHERD Admitting Unavailable Willaims SHEPHERD Attending Unavailable Renato SANTACRUZ Attending Unavailable Williams SHEPHERD Attending Unavailable Williams SHEPHERD Attending Unavailable Williams SHEPHERD Attending Unavailable MD Jayme Perez Primary Care Provider [phone] MD Radames Monteiro Attending Provider Radames Monteiro Admdiallo Unavailable Radames Monteiro Attending Unavailable Jayme Perez Primary Care Unavailable Felicia Farmer DO Unavailable [phone] Renato Santacruz MD Unavailable Radames Monteiro MD Unavailable FELICIA FARMER Attending Unavailable JAYME PEREZ Attending Unavailable FELICIA FARMER Attending Unavailable JAYME PEREZ Attending Unavailable FELICIA FARMER Attending Unavailable FELICIA FARMER Attending Unavailable FELICIA FARMER Attending Unavailable FELICIA FARMER Attending Unavailable HEMEJAYME TAMAYO Attending Unavailable Allergies Allergy Classification Reported Allergen(s) Allergy Type Date of Onset Reaction(s) Facility (17 sources) Ciprofloxacin; Translations: [ciprofloxacin] Drug Allergy 02-19-20 22 anaphylaxis, Unknown (qualifier value) [facility] (1 source) sulfaSALAzine Drug Allergy rash [facility] Other (1 source) Ciprofloxacin Drug Allergy 03-30-20 13 [facility] Rep[facility] (2 sources) Ketorolac; Translations: [Toradol] Drug Allergy 03-30-20 13 [facility] (2 sources) metroNIDAZOLE; Translations: [MetroGel] Drug Allergy 03-30-20 13 [facility] (1 source) NSAIDs Drug allergy (disorder) 03-30-20 13 [facility] (2 sources) pioglitazone; Translations: [Actos] Drug Allergy 03-30-20 13 [facility] (1 source) Sulfonamides (Antibiotic) Drug allergy (disorder) 03-30-20 13 [facility] (11 sources) Ketorolac; Translations: [ketorolac] Drug Allergy 03-26-20 23 Unknown (qualifier value), Nausea (finding) [facility] Comment on above: Severe (16 sources) Latex; Translations: [Latex] Drug allergy 01-07-20 23 Blister of skin AND/OR mucosa (finding) [facility] (13 sources) Non-steroidal anti-inflammatory agent; Translations: [NSAIDs] Drug allergy 02-19-20 22 Unknown (qualifier value) [facility] (17 sources) pioglitazone; Translations: [pioglitazone] Drug Allergy 01-07-20 23 Unknown (qualifier value) [facility] (5 sources) Sulfonamides (Antibiotic); Translations: [sulfa drugs] Drug allergy Unknown (qualifier value) [facility] (13 sources) metroNIDAZOLE; Translations: [Metronidazole] Drug Allergy 02-19-20 22 Redness of Skin [facility] (3 sources) Sulfonamides (Antibiotic); Translations: [Sulfa (Sulfonamide Antibiotics)] Allergy to substance 03-26-20 [facility] (3 sources) NSAIDS (Non-Steroidal Anti-Inflamma; Translations: [NSAIDS (Non-Steroidal Anti-Inflamma] Allergy to substance 03-26-20 Anaphylaxis, Anaphylaxis, rash [facility] (1 source) Non-steroidal anti-inflammatory agent Drug allergy [facility] [place] Other (9 sources) Substance with sulfonamide structure and antibacterial mechanism of action (substance) Drug allergy 02-19-20 [facility] [place] Other (8 sources) Ketorolac Allergy to substance 01-07-20 Nausea Only [facility] (8 sources) Hydrocodone Bit-Homatrop Mbr Propensity to adverse reactions 08-07-19 Dizziness [facility] (8 sources) Medical Adhesive Remover Drug Allergy 02-19-20 [facility] (1 source) Ciprofloxacin Drug Allergy 07-25-19 [facility] (1 source) Ketorolac Drug Allergy 03-26-20 [facility] (1 source) pioglitazone Drug Allergy 03-26-20 [facility] Repository Medications Current Medications Medication Drug Class(es) Dates Sig (Normalized) Sig (Original) acarbose 100 mg oral tablet (20 sources) alpha-Glucosidase Inhibitor Start: 08-17-2019 End: 10-12-2024 acarbose (Precose) 100 MG tablet Indications: Type 2 diabetes mellitus with stage 3a chronic kidney disease, without long-term current use of insulin (HCC) ([facility]/HCC) Take 1 tablet (100 mg) by mouth in the morning and 1 tablet (100 mg) at noon and 1 tablet (100 mg) in the evening. Take with meals. 270 tablet 1 04/15/2024 10/12/2024 Active Start: 08-17-2019 acarbose Oral, TID, Refills(s) 0 Start Date: 08/17/19 Status: Ordered Acarbose Active acetaminophen 325 mg oral ta blet (12 sources) Start: 03-26-2023 Acetaminophen (Tylenol) 325 mg [...] as needed orally every 6 hours Active [id number] actuat albuterol 0.09 mg/actuat metered dose inhaler (10 sources) beta2-Adrenergic Agonist Start: 07-16-2023 End: 07-15-2024 albuterol HFA [...] Ordered calcium citrate 950 mg oral tablet (14 sources) Start: 03-26-2023 take 200 mg by [...] tablet orally three times a day. Active cholecalciferol 0.125 mg oral tablet (2 sources) Vitamin D Start: 03-26-2023 take 1 tablet by mouth once daily Cholecalciferol (Vitamin D3) (Vitamin D3) 125 mcg (5,000 unit) Tablet Active 5000 UNIT PO every day at on March 26, 2023 12:00am cinnamon bark 500 mg oral capsule (10 sources) Start: 03-26-2023 take 1 capsule by [...] Date: 09/19/20 Status: Ordered Cyanocobalamin-Liver Extract (Vitamin V88-[id number]) Tablet (2 sources) Start: 03-26-2023 take 1 tablet by mouth once daily Cyanocobalamin-Liver Extract (Vitamin L36-Ettxx) Tablet Active 1 TAB PO every day at March 26, 2023 12:00am Start: 03-26-2023 take 1 tablet by valdo th once daily Cyanocobalamin-Liver Extract (Vitamin U15-Vapju) Tablet Active 1 TAB PO every day at March 25, 2023 11:00pm dextromethorphan hydrobromide 1.5 mg/ml / pyrilamine maleate 1.5 mg/ml oral solution (1 source) Uncompetitive F-imyblu-V-aspartate Receptor Antagonist, Sigma-1 Agonist Start: 07-25-2023 take 10 mL by mouth every eight hours Hoyt DM 7.5-7.5 MG/5ML 10 mL Orally every 8 hours for 5 days Jul, Active esomeprazole 20 mg oral tablet (14 sources) Proton Pump Inhibitor Start: 08-17-2019 take 20 mg by mouth once daily Esomeprazole Magnesium Active 20 MG PO every day at March 26, 2023 12:00am Start: 08-17-2019 Nexium Oral, D aily, Refills(s) 0 Start Date: 08/17/19 Status: Ordered take 1 capsule by [facility] once daily esomeprazole (NexIUM) [...] Active metFORMIN hydrochloride 1000 mg oral tablet (20 sources) Biguanide Start: 08-17-2019 End: 10-12-2024 take 1 tablet by mouth in the morning metFORMIN (Glucophage) 1000 MG tablet Indications: Type 2 diabetes mellitus with stage 3a chronic kidney disease, without long-term current use of insulin (HCC) (CMS/HCC) Take 1 tablet (1,000 mg) by mouth in the morning and 1 tablet (1,000 mg) in the evening. Take with meals. 180 tablet 1 04/15/2024 10/12/2024 Active Start: 08-17-2019 metformin Oral , Refills(s) [...] Status: Ordered ondansetron 4 mg oral tablet (6 sources) Serotonin-3 Receptor Antagonist Start: 08-13-2023 ondansetron 4 mg Tab mg tab(s), Oral, As Directed, Refills(s) 0 Start Date: 08/13/23 Status: Ordered Start: 08-12-2023 End: 04-15-2024 take 1 tablet by mouth every eight hours as needed for nausea ondansetron ODT (Zofran-ODT) 4 MG disintegrating tablet Take 4 mg by mouth every 8 (eight) hours if needed for nausea 08/12/2023 04/15/2024 Discontinued (Therapy completed) predniSONE 2.5 mg oral tablet (8 sources) [...] Spacer/Aero-Holding Chambers ([facility] Leonor Spacer Adult) misc (8 sources) Start: 07-16-2023 Spacer/Aero-Ho lding Chambers ([facility] Leonor Spacer Adult) [facility] Indications: Chronic obstructive pulmonary disease with acute exacerbation (CMS/HCC) 2 puffs 4 (four) times a day as needed (sob and cough) 1 each 07/16/2023 Active Start: 07-16-2023 Spacer/Aero-Ho lding Chambers ([facility] Leonor Spacer Adult) [facility] Indications: Chronic obstructive pulmonary disease with acute exacerbation (CMS/HCC) 2 puffs 4 (four) times a day as needed (sob and cough) 1 each 0 07/16/2023 Active tamsulosin hydrochloride 0.4 mg oral capsule (7 sources) alpha-Adrenergic Sergey Start: 08-13-2023 End: 08-20-2023 take 1 mg by mouth once daily tamsulosin 0.4 mg Cap mg cap(s), Oral, Daily, X 7 day(s), Refills(s) 0 Start Date: 08/13/23 Stop Date: 08/20/23 Status: Ordered Start: 08-12-2023 take 1 capsule by [facility] every twenty-four hours in the morning tamsulosin (Flomax) 0.4 MG 24 hr capsule Take 0.4 mg by mouth in the morning. 08/12/2023 Active traZODone hydrochloride 50 mg oral tablet (4 sources) Serotonin Reuptake Inhibitor Start: 04-15-2024 traZODone (Desyrel) 50 MG tablet Indications: Insomnia Titrate nightly from 1/2 tablet up to 2 tablets by 1/2 tablet increments as tolerated 60 tablet 04/15/2024 Active vitamin B12 (12 sources) Vitamin B12 Start: 08-17-2019 take 3000 [...] Start Date: 08/17/19 Status: Ordered warfarin sodium 1 mg oral tablet (20 sources) Vitamin K Antagonist Start: 10-23-2023 End: 10-22-2024 take 1 tablet by mouth once daily in the evening warfarin (Coumadin) 4 MG tablet Indications: 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 (CMS/HCC) TAKE ONE TABLET BY MOUTH EVERY EVENING FOR A TOTAL OF 5MG 90 tablet 1 04/21/2024 Active Start: 08-18-2023 End: 10-22-2024 take 1 tablet by mouth once daily in the evening warfarin (Coumadin) 1 MG tablet Indications: 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 (CMS/HCC) TAKE ONE TABLET BY MOUTH EVERY EVENING FOR A TOTAL OF 5MG 90 tablet 1 04/21/2024 Active Start: 08-18-2023 End: 08-17-2024 warfarin (Coumadin) [...] Sig (Normalized) Sig (Original) acetaminophen 325 mg / oxyCODONE hydrochloride 5 mg oral tablet (6 sources) Opioid Agonist Start: 08-12-2023 End: 04-15-2024 take 1 tablet by mouth every six hours as needed oxyCODONE-acetamin ophen (Percocet) 5-325 MG tablet Take 1 tablet by mouth every 6 (six) hours if needed 08/12/2023 04/15/2024 Discontinued (Therapy completed) azithromycin 250 mg oral tablet (2 sources) Macrolide Antimicrobial Start: 05-21-2021 Azithromycin 250 MG 2 tablets on the first day, then 1 tablet daily for 4 days Orally Once a day for 5 day(s) May, Not-Taking/PRN Start: 05-21-2021 cephalexin 500 mg oral capsule (5 sources) Cephalosporin Antibacterial Start: 08-12-2023 End: 04-15-2024 take 1 capsule by mouth in the morning, then take 1 capsule by mouth in the evening, then take 1 capsule by mouth at bedtime cephalexin (Keflex) 500 MG capsule Take 500 mg by mouth in the morning and 500 mg in the evening and 500 mg before bedtime. 08/12/2023 04/15/2024 Discontinued (Therapy completed) methylPREDNISolone (3 sources) Corticosteroid Start: 07-25-2023 End: [...] of uterine body 08-17-2019 Episodic Cardiac dysrhythmias (19 sources) 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; Translations: [Atrial fibrillation] Onset: 10-14-2022 Chronic Cataract (20 sources) Bilateral age-related nuclear cataracts; Translations: [Age-related nuclear cataract, bilateral] Onset: 05-19-2023 Resolved: 12-31-2023 05-19-2023 Chronic Chronic kidney disease (12 sources) Chronic kidney disease stage 3A ; Translations: [Stage 3a chronic kidney disease (HCC) (CMS/HCC)] Onset: 12-12-2022 07-30-2023 Chronic Congestive heart failure; nonhypertensive (11 sources) Chronic diastolic (congestive) heart failure; Translations: [Chronic diastolic heart failure] Onset: 09-05-2022 08-18-2023 Chronic Diabetes mellitus with complications (16 sources) Type 2 diabetes mellitus with diabetic chronic kidney disease; Translations: [Type 2 diabetes mellitus] Onset: 08-09-2022 Chronic Diverticulosis and diverticulitis (8 sources) 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; Translations: [Diverticulosis of large intestine without perforation or abscess without bleeding] Onset: 12-12-2022 12-12-2022 Chronic Esophageal disorders (10 sources) Gastroesophageal reflux disease without esophagitis; Translations: [Gastro-esophageal reflux disease without esophagitis] Onset: 12-12-2022 08-18-2023 Chronic Glaucoma (8 sources) Preglaucoma, unspecified, bilateral; Translations: [Preglaucoma, unspecified] Onset: 05-19-2023 05-19-2023 Chronic Heart valve disorders (9 sources) Nonrheumatic aortic (valve) stenosis; Translations: [Aortic valve disorders] Onset: 09-05-2022 12-12-2022 Chronic Immunity disorders (8 sources) Immunosuppression; Translations: [Immunodeficiency, unspecified] Onset: 12-12-2022 12-12-2022 Chronic Malaise and fatigue (2 sources) Fatigue; Translations: [Chronic fatigue, unspecified] 04-15-2024 Chronic Menopausal disorders (8 sources) Disorder associated with menstruation AND/OR menopause; Translations: [Menopausal and female climacteric states] Onset: 12-12-2022 12-12-2022 Chronic Mood disorders (4 sources) Depressive disorder 08-17-2019 Chronic Nutritional deficiencies (8 sources) Vitamin D deficiency; Translations: [Vitamin D deficiency, unspecified] Onset: 12-12-2022 12-12-2022 Chronic Osteoporosis (9 sources) Osteoporosis; Translations: [Age-related osteoporosis without current pathological fracture] Onset: 12-12-2022 12-12-2022 Chronic Other aftercare (1 source) termite control servicer (current) use of anticoagulants; Translations: [GOLF CLUB REPAIRER CURRNT USE ANTICOAGULANTS] Onset: 12-11-2022 Episodic Other aftercare (5 sources) Encounter for therapeutic drug level monitoring; Translations: [ENC THERAPEUTC DRUG LEVL MONITORING] Onset: 10-18-2022 Episodic Other aftercare (1 source) Other dedicated intermodal truck driver (current) drug therapy; Translations: [OTH GOLF CLUB REPAIRER CURRENT DRUG THERAPY] Onset: 10-31-2022 Episodic Other and ill-defined heart disease (4 sources) Cardiomegaly; Translations: [CARDIOMEGALY] Onset: 09-02-2022 Chronic Other and ill-defined heart disease (8 sources) Ventricular hypertrophy ; Translations: [Cardiomegaly] Onset: 12-12-2022 12-12-2022 Chronic Other diseases of kidney and ureters (2 sources) Urinary tract obstruction; Translations: [Hydronephrosis with renal and ureteral calculous obstruction] Onset: 08-13-2023 Episodic Other inflammatory condition of skin (5 sources) Other psoriatic arthropathy; Translations: [OTHER PSORIATIC ARTHROPATHY] Onset: 09-25-2022 Chronic Other inflammatory condition of skin (10 sources) Psoriatic arthritis; Translations: [Arthropathic psoriasis, unspecified] Onset: 12-12-2022 08-18-2023 Chronic Other nutritional; endocrine; and metabolic disorders (4 sources) Body mass index 25-29 - overweight 09-18-2021 Episodic Other nutritional; endocrine; and metabolic disorders (2 sources) Unexplained weight loss ; Translations: [Abnormal weight loss] 04-19-2024 Episodic Residual codes; unclassified (2 sources) Sleep dysfunction with arousal disturbance; Translations: [Other sleep disorders] 04-15-2024 Chronic Residual codes; unclassified (4 sources) H/O: anticoagulant therapy 09-21-2019 Episodic Spondylosis; intervertebral disc disorders; other back problems (16 sources) Degeneration of lumbar intervertebral disc; Translations: [Other intervertebral disc degeneration, lumbar region] Onset: 12-12-2022 12-12-2022 Chronic Unclassified (4 sources) Drug therapy finding 08-20-2019 Unclassified (2 sources) Obstructive hydronephrosis 08-13-2023 Viral infection (1 source) Other specified viral diseases Episodic Past or Other Problems Problem Classification Problem Date Documented Da te Episodic/Chronic Diabetes mellitus without complication (17 sources) Diabetes mellitus; Translations: [Type 1 diabetes mellitus without complication] Onset: 05-19-2023 Resolved: 04-07-2024 08-17-2019 Chronic Genitourinary symptoms and ill-defined conditions (20 sources) Increased frequency of urination; Translations: [Nocturia] Onset: 12-12-2022 09-19-2020 Episodic Heart valve disorders (13 sources) Cardiac murmur, unspecified; Translations: [Heart murmur] Onset: 09-05-2022 08-17-2019 Episodic Immunizations and screening for infectious disease (1 source) Contact with and (suspected) exposure to other viral communicable diseases Onset: 05-21-2021 Resolved: 05-21-2021 Episodic Inflammation; infection of eye (except that caused by tuberculosis or sexually transmitteddisease) (8 sources) Blepharitis of upper and lower eyelids of bilateral eyes; Translations: [Unspecified blepharitis right eye, upper and lower eyelids] Onset: 05-19-2023 05-19-2023 Episodic Mood disorders (8 sources) Mood disorders Onset: 05-22-2023 05-22-2023 Nutritional deficiencies (8 sources) Iron deficiency; Translations: [Iron deficiency] Onset: 12-12-2022 12-12-2022 Episodic Other aftercare (1 source) detention (current) use of oral hypoglycemic drugs; Translations: [NURSING HOME USE ORAL HYPOGLYCEMIC DX] Onset: 08-12-2022 Episodic Other aftercare (1 source) termite control servicer (current) use of insulin; Translations: [NURSING HOME CURRENT USE OF INSULIN] Onset: 02-13-2022 Episodic Other aftercare (14 sources) Long-term current use of anticoagulant; Translations: [detention (current) use of anticoagulants] Onset: 07-21-2023 Episodic Other bone disease and musculoskeletal deformities (8 sources) Osteopenia; Translations: [Other specified disorders of bone density and structure, unspecified site] Onset: 12-12-2022 12-12-2022 Episodic Other connective tissue disease (4 sources) Pain in left foot; Translations: [PAIN IN LEFT FOOT] Onset: 02-20-2022 Episodic Other eye disorders (8 sources) Dry eyes; Translations: [Dry eye syndrome of bilateral lacrimal glands] Onset: 05-19-2023 05-19-2023 Episodic Other nutritional; endocrine; and metabolic disorders (8 sources) Overweight; Translations: [Overweight] Onset: 12-12-2022 Resolved: 07-30-2023 07-30-2023 Episodic Pneumonia (except that caused by tuberculosis or sexually transmitted disease) (1 source) Pneumonia, unspecified organism Onset: 05-21-2021 Resolved: 05-21-2021 Episodic Residual codes; unclassified (10 sources) Body mass index 20-24 - normal; Translations: [Body mass index (BMI) 24.0-24.9, adult] Onset: 07-30-2023 07-30-2023 Episodic Residual codes; unclassified (8 sources) Sleep disorder; Translations: [Sleep disorder, unspecified] Onset: 12-12-2022 12-12-2022 Episodic Screening and history of mental health and substance abuse codes (14 sources) Ex-smoker; Translations: [Personal history of nicotine dependence] Onset: 03-27-2017 Resolved: 08-07-2023 09-21-2019 Episodic Unclassified (1 source) Unclassified (1 source) Contact with and (suspected) exposure to covid-19 Z20.822 Viral infection (1 source) COVID-19 Onset: 05-21-2021 Resolved: 05-21-2021 Results Test Name Value Interpretation Reference Range [facility] CREATININEon 04-22-2024 Creatinine [Mass/Vol] 0.84 mg/dL 0.55 - 1.02 mg/dL [facility] GFR/1.73 sq M.predicted CKD-EPI (S/P/Bld) [Vol rate/Area] >60 >=60 mL/min/1.73m 2 [facility] EGFR-NON AF BULGARIAN >60 >=60 mL/min/1.73m 2 [facility] ALL CBC WITH AUTO DIFFon BASOPHILS ABSOLUTE AUTO 0.0 [facility] Basophils/100 WBC (Bld) 0.6 % 0.2 - 2.0 % [facility] Eosinophils/100 WBC (Bld) 2.1 % 0.9 - 7.0 % [facility] Erythrocyte distribution width (RBC) [Ratio] 14.1 % 11.0 - 15.0 % [facility] Hematocrit (Bld) [Volume fraction] 41.8 % 36.0 - 48.0 % [facility] Hemoglobin (Bld) [Mass/Vol] 13.5 g/dL 12.0 - 16.0 g/dL [facility] IMMATURE GRANULOCYTES ABS AUTO 0.02 [facility] Immature granulocytes/100 WBC (Bld) 0.3 % 0.0 - 0.5 % [facility] Interpretation and review of laboratory results Abnormal [facility] LYMPHOCYTES ABSOLUTE AUTO 2.1 [facility] Lymphocytes/100 WBC (Bld) 32.2 % 20.5 - 60.0 % [facility] MCH (RBC) [Entitic mass] 31.0 pg 26.7 - 34.0 pg [facility] MCHC (RBC) [Mass/Vol] 32.3 g/dL 29.9 - 35.2 g/dL [facility] MCV (RBC) [Entitic vol] 95.9 fL 81.0 - 99.0 fL [facility] MONOCYTES ABSOLUTE AUTO 0.5 [facility] Monocytes/100 WBC (Bld) 6.8 % 1.7 - 12.0 % [facility] NEUTROPHILS ABSOLUTE AUTO 3.8 [facility] Neutrophils/100 WBC (Bld) 58.0 % 43.0 - 75.0 % [facility] Platelet mean volume (Bld) [Entitic vol] 8.6 fL Low 9.5 - 13.5 fL [facility] TBH EO # 0.1 [facility] PLT 316 [facility] RBC 4.36 [facility] WBC 6.6 [facility] SRMCOH PROTHROMBIN TIME INR W/O COUMon 04-13-2024 Interpretation and review of laboratory results Abnormal [facility] PT Coag (PPP) [Time] 27.7 s High [facility] INR 2.90 [facility] Comment on above: DESIRED INR: 2.0-3.0 CONDITIONS NOT LISTED BELOW 2.5-3.5 FOR PROSTHETIC HEART VALVE REPLACEMENT 2.5-3.5 [facility] Magnesium [Mass/volume] in S fartun or PlasmaOrdered By: Radames Monteiro on 03-31-2024 Magnesium [Mass/Vol] 1.9 mg/dL Normal 1.9-2.7 [facility] Comment on above: Result Comment: PERF ORMED BY: [place] [address] PATHOLOGIST [employer]ACHINE BERNIE GRAYSON M.D. Performed By: #### M G, PHOS #### [address] Phosphate [Mass/volume] in S fartun or PlasmaOrdered By: Radames Monteiro on 03-31-2024 Phosphate [Mass/Vol] 3.7 mg/dL Normal 2.5-4.5 [facility] Comment on above: Performed By: #### M VALENTINA Alcantara #### [facility] [address] [id number] [facility] Ambulatory Visit Summaryon 0 10-14-2023 Ambulatory Visit [...] Venegas Primary Care Physician - CHRIS AGUIAR, JAYEM Hazel This Is Your Medications List Contact [...] Williams SHEPHERD MD Where: [facility] Patient Educationon 10-14-19 Patient Education Nephrology [...] Spinach (cooked), rhubarb, beets, sweet potatoes, and [place] chard. ? Peanuts. ? Potato chips, romansh fries, and baked potatoes with skin on. ? Nuts and nut products. ? Chocolate. ? If you regularly take a diuretic medicine, make sure to eat at least 1 or 2 servings of fruits or vegetables that are high in potassium each day. These include: ? Avocado. ? Banana. ? [place], prune, carrot, or tomato juice. ? Baked [...] fish oil, or vitamin B6. ? Take [id number] and prescription medicines only as told by your health care provider. These include supplements. What foods sh (more content not included)... Normal [facility] Urology Office/Clinic Noteon 10-14-2023 Urology Office/Clinic Note Chief Complaint Pt is here for 3 month w/ met w/u & [facility] HPI Staff 6 month follow up w/[facility] Pt canceled Cysto/R retro/possible: ureteroscopy, laser, basket, stent placement 04/07/23 due to passing stones Pt was then seen at [facility] on 08/12/23 due to abdominal pain, [...] with voice recognition artificial intelligence software, specifically [employer], [employer] and or [employer]. Substitutions may have occurred due to the inherent limitations of voice recognition and artificial intelligence software. 1. Ureteral stone with hydronephrosis (N13.2: Hydronephrosis with renal and ureteral calculous obstruction) [facility] ER visit 08/12/23 due to R [...] bilateral nephrolithiasis. -See #1 3. Anticoagulated (Z79.01: detention (current) use of anticoagulants) Warfarin for A-fib. [...] Information CORA AGUIAR, Williams Venegas, URL [address] [address]- Additional Instructions: 06/2024 with KUB Patient Education Dietary Guidelines to Help Prevent Kidney Stones I, Charisse Rutherford, personally scribed for Dr. Shepherd on 10/14/2023 09:33:56. Electronically signed by (more content not included)... [facility] Comment on above: Result Comment: Elec tronically Signed By: Williams SHEPHERD MD\.br\Date and Time Signed: 10/14/23 09:38 EDT\.br\Electronically Co-Signed By: Charisse Rutherford.br\Date and Time Co-Signed: 10/14/23 09:34 EDT RAD - MISCon 10-10-2023 RAD - MISC [id number] .00TIFF [facility] Lab Reportson 08-27-2023 Lab Reports [id number]#1 .00TIFF [facility] Lab Reportson 08-25-2023 Lab Reports [id number]#1 .00TIFF [facility] Lab Reports [id number]#1 .00TIFF [facility] Lab Reportson 08-22-2023 Lab Reports [id number]#1 .00TIFF [facility] Lab Reportson 08-21-2023 Lab Reports [id number]#1 .00TIFF [facility] Lab Reports [id number]#1 .00TIFF [facility] ALL BUNon 08-20-2023 Urea nitrogen [Mass/Vol] 12.0 mg/dL 7.0 - 18.0 mg/dL [facility] ALL CARBON DIOXIDEon 024 CO2 [Moles/Vol] 30.1 mmol/L 21.0 - 32.0 mmol/L [facility] ALL CHLORIDEon 08-20-2023 Chloride [Moles/Vol] 104 mmol/L 98 - 107 mmol/L [facility] ALL PHOSPHOROUSon 08-20-2023 Phosphate [Mass/Vol] 4.1 mg/dL 2.6 - 4.7 mg/dL [facility] ALL SODIUMon 08-20-2023 Sodium [Moles/Vol] 141 mmol/L 136 - 145 mmol/L [facility] ALL URIC ACIDon 08-20-2023 Urate [Mass/Vol] 4.4 mg/dL 2.6 - 6.0 mg/dL [facility] CALCIUMon 08-20-2023 Calcium [Mass/Vol] 9.1 mg/dL 8.5 - 10.1 mg/dL [facility] No Panel Informationon 08-20 [facility]IS[facility] TBH CREATININEon 08-20-2023 Creatinine [Mass/Vol] 0.86 mg/dL 0.55 - 1.02 mg/dL [facility] GFR/1.73 sq M.predicted CKD-EPI (S/P/Bld) [Vol rate/Area] >60 60 - PINF [facility] EGFR-NON AF BULGARIAN >60 60 - PINF [facility] Consent for Procedure/Surger yon 08-15-2023 Consent for Procedure/Surgery [id number]#1 .00TIFF Normal [facility] ED Note-Physicianon 08-15-19 ED Note-Physician [id number]#1. 00TIFF Normal [facility] Lab Reportson 08-15-2023 Lab Reports [id number]#1. 00TIFF Normal [facility] Lab Reports [id number]#1 .00TIFF Normal [facility] Lab Reports [id number]#1 .00TIFF Normal [facility] Operative Reporton Operative Report [id number]#1 .00TIFF Normal [facility] RAD - CT Reporton 08-15-2023 RAD - CT Report [id number]#1. 00TIFF [facility] Ambulatory Visit Summaryon 0 08-13-2023 Ambulatory Visit [...] AGUIAR, Williams Venegas Where: [facility] Ju Normal 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 \.br\ Any problems you or [...] you to take them.\.br\ ? \.br\ Taking wtpi-cff-rqwwgif medicines, vitamins, herbs, and supplements.\.br \ Eating [...] You may also have tests, such [facility] Patient Educationon 08-13-19 Patient Education Nephrology Laser [...] including vitamins, herbs, eye drops, creams, and ccge-mbt-fnxdmjj medicines. ? Any problems you or family [...] tells you to take them. ? Taking mowj-epr-vnkphyh medicines, vitamins, herbs, and supplements. Eating and [...] the pieces (more content not included)... Normal [facility] Urology Office/Clinic Noteon 08-13-2023 Urology Office/Clinic Note Chief Complaint Patient is here for follow up to [facility] ER HPI Staff Patient is here for f/u to [facility] ER on 08/12/23 due [...] Hydronephrosis with renal and ureteral calculous obstruction) [facility] ER visit 08/12/23 due to R [...] abdominal pain) See #1 4. Anticoagulated (Z79.01: detention (current) use of anticoagulants) On warfarin 3mg for a-fib. States she did not take this last night. Advised pt not to take her dose today either. Follow-up With When Contact Information ANGELITO AGUIAR, Renato Arzola, URL [facility] [address], [place] [address] [phone] Additional Instructions: sched ureteroscopy f/u w/ [facility] scheduled 10/14/23 Patient Education Laser Therapy for Kidney Stones I, Amy Gallagher, personally scribed for Dr. Santacruz on 08/13/2023 11:35:03. . Documentation recorded by the scribe, Amy Gallagher, accurately reflects the services(s) I performed and decisions made by me. Authenticated by Dr. Santacruz on 08/13/2023 11:37:02. Problem List/Past Medical History Ongoi (more content not included)... Normal [facility] Comment on above: Result Comment: Elec tronically Signed By: Renato SANTACRUZ MD\.br\Date and Time Signed: 08/13/23 11:37 EST\.br\Electronically Co-Signed By: Amy Gallagher\.br\Date and Time Co-Signed: 08/13/23 11:35 EST COVID/FLU/RSV RT-PCRon 07-25 SARS-CoV-2 (COVID-19) RNA TREASURE+probe Ql (Unsp spec) Negative [facility] Other COVID/FLU/RSV RT-PCR Negative [facility] Other COVID/FLU/RSV RT-PCR Positive [facility] Other Calculus Analysison 03-27-20 23 Calcium oxalate dihydrate Infrared spectroscopy (Stone) [Mass fraction] 100 % Invalid Interpretation Code [facility] Comment on above: Performed By: #### 1 [id number] ####[facility] [address] [place] [address] Color (Stone) Roper Invalid Interpretation Code [facility] Comment on above: Performed By: #### 1 [id number] ####[facility] [address] [place] [address] Composition Comment Invalid Interpretation Code [facility] Comment on above: Result Comment: Perc entage (Represents the % composition) Performed By: #### 1 [id number] ####[facility] [address] [place] [address] Disclaimer: Comment Invalid Interpretation Code [facility] Comment on above: Result Comment: This test was developed and its performance characteristics determined by [facility]. It has not been cleared or approved by the Food and Drug Administration. Performed at: [facility] [address] [place], [place] [id number] PhD Silvestre Esquivel Performed By: #### 1 [id number] ####[facility] [address] [place] [address] Laboratory comment Noam (Report) Comment Invalid Interpretation Code [facility] Comment on above: Result Comment: Coco goode questions regarding Calculi Analysis contact [facility] at: [phone]. Performed By: #### 1 [id number] ####[address] [address] Please Note: Comment Invalid Interpretation Code [facility] Comment on above: Result Comment: Calc javier report will follow via computer, mail or forklift operator delivery. Performed By: #### 1 [id number] ####[address] [place] [address] Size (Stone) [Entitic vol] 6x4 Invalid Interpretation Code [facility] Comment on above: Result Comment: Sing le piece received. Performed By: #### 1 [id number] ####[address] [place] [address] Specimen source subject Nom Comment Invalid Interpretation Code [facility] Comment on above: Result Comment: Not provided Performed By: #### 1 [id number] ####[facility] [address] [facility] [place] [address] Stone Photo Comment Invalid Interpretation Code [facility] Comment on above: Result Comment: Phot ograph will follow under a separate cover Performed By: #### 1 [id number] ####[facility] [address] [place] [address] Weight (Stone) 49 mg Invalid Interpretation Code [facility] Comment on above: Performed By: #### 1 [id number] ####[facility] [address] [place] [address] Lab Reportson 03-27-2023 Lab Reports [id number]#1. 00CD:127 Normal [facility] Activated partial thrombopla stin time (aPTT) in platelet poor plasma by coagulation aOrdered By: Williams Shepherd on 03-26-2023 aPTT Coag (PPP) [Time] 35.9 s 25.1-36.5 [facility] Comment on above: A hematocrit value g reater than 55% may lead to inaccurate results in coagulation testing. Patients having hematocrit values >55% require a special collection tube for coagulation studies. Please contact the laboratory at [phone] for redraw instructions. Basophils Auto (Bld) [#/Vol] Ordered By: Williams Shepherd on 03-26-2023 Basophils (Bld) [#/Vol] 0.0 10*3/uL 0.0-0.2 [facility] Basophils/100 WBC Auto (Bld) Ordered By: Williams Shepherd on 03-26-2023 Basophils/100 WBC (Bld) 0.8 % . [facility] Calcium [Mass/volume] in Ser um or PlasmaOrdered By: Williams Shepherd on 03-26-2023 Calcium [Mass/Vol] 10.0 mg/dL 8.6-10.[address] [facility] Carbon dioxide, total [Moles /volume] in Serum or PlasmaOrdered By: Williams Shepherd on 03-26-2023 CO2 [Moles/Vol] 30.0 mmol/L 21.0-31.0 [facility] Chloride [Moles/volume] in S fartun or PlasmaOrdered By: Williams Shepherd on 03-26-2023 Chloride [Moles/Vol] 104 mmol/L 98-107 [facility] Creatinine [Mass/volume] in Serum or PlasmaOrdered By: Williams Shepherd on 03-26-2023 Creatinine [Mass/Vol] 0.85 mg/dL 0.60-1.20 [facility] Eosinophils Auto (Bld) [#/Vo l]Ordered By: Williams Shepherd on 03-26-2023 Eosinophils (Bld) [#/Vol] 0.3 10*3/uL 0.0-0.45 [facility] Eosinophils/100 WBC Auto (Bl d)Ordered By: Williams Shepherd on 03-26-2023 Eosinophils/100 WBC (Bld) 4.3 % . [facility] Erythrocyte distribution wid th Auto (RBC) [Ratio]Ordered By: Williams Shepherd on 03-26-2023 Erythrocyte distribution width (RBC) [Ratio] 14.8 % 11.9-15.3 [facility] Glucose [Mass/volume] in Ser um or PlasmaOrdered By: Williams Shepherd on 03-26-2023 Glucose [Mass/Vol] 111 mg/dL 70-[address] [facility] Comment on above: ADA recommended refe rence rangeRandom Glucose Reference Range is dependent on time and content of last meal. Glucose of more than 200 mg/dL in a nonstressed, ambulatory subject supports the diagnosis of Diabetes Mellitus. Hematocrit Auto (Bld) [Volum e fraction]Ordered By: Williams Shepherd on 03-26-2023 Hematocrit (Bld) [Volume fraction] 40.3 % 34.0-46.4 [facility] Hemoglobin [Mass/volume] in BloodOrdered By: Williams Shepherd on 03-26-2023 Hemoglobin (Bld) [Mass/Vol] 13.3 g/dL 11.8-15.4 [facility] INR in Platelet poor plasma by Coagulation assayOrdered By: Williams Shepherd on 03-26-2023 INR Coag (PPP) [Relative time] 2.3 {INR} [facility] Comment on above: INR Therapeutic Rang [...] RBC Auto (Bld) [#/Vol] 5.9 10*3/uL 3.8-11.6 [facility] Lymphocytes Auto (Bld) [#/Vo l]Ordered By: Williams Shepherd on 03-26-2023 Lymphocytes (Bld) [#/Vol] 2.2 10*3/uL 1.00-4.8 [facility] Lymphocytes/100 WBC Auto (Bl d)Ordered By: Williams Shepherd on 03-26-2023 Lymphocytes/100 WBC (Bld) 36.9 % . [facility] MCH Auto (RBC) [Entitic mass ]Ordered By: Williams Shepherd on 03-26-2023 MCH (RBC) [Entitic mass] 31.1 pg 24.7-34.3 [facility] MCHC Auto (RBC) [Mass/Vol]Or dered By: Williams Shepherd on 03-26-2023 MCHC (RBC) [Mass/Vol] 32.9 g/dL 32.0-35.0 [facility] MCV Auto (RBC) [Entitic vol] Ordered By: Williams Shepherd on 03-26-2023 MCV (RBC) [Entitic vol] 94.4 fL 80-100 [facility] Monocytes Auto (Bld) [#/Vol] Ordered By: Williams Shepherd on 03-26-2023 Monocytes (Bld) [#/Vol] 0.5 10*3/uL 0.0-0.8 [facility] Monocytes/100 WBC Auto (Bld) Ordered By: Williams Shepherd on 03-26-2023 Monocytes/100 WBC (Bld) 7.8 % . [facility] Neutrophils Auto (Bld) [#/Vo l]Ordered By: Williams Shepherd on 03-26-2023 Neutrophils (Bld) [#/Vol] 3.0 10*3/uL 1.8-7.7 [facility] Neutrophils/100 WBC Auto (Bl d)Ordered By: Williams Shepherd on 03-26-2023 Neutrophils/100 WBC (Bld) 50.2 % . [facility] No Panel InformationOrdered By: Williams Shepherd on 03-26-2023 Estimated GFR (CKD-EPI) > 60.0 mL/Min [facility] Creatinine Clearance (Chem N/A [facility] Nucleated erythrocytes [Pres ence] in Blood by Automated countOrdered By: Williams Shepherd on 03-26-2023 Nucleated RBC Auto Ql (Bld) 0.3 /100{WBC} 0-0.5 [facility] Platelet mean volume Auto (B ld) [Entitic vol]Ordered By: Williams Shepherd on 03-26-2023 Platelet mean volume (Bld) [Entitic vol] 7.1 fL 6.3-10.7 [facility] Platelets Auto (Bld) [#/Vol] Ordered By: Williams Shepherd on 03-26-2023 Platelets (Bld) [#/Vol] 363 10*3/uL 150-450 [facility] Potassium [Moles/volume] in Serum or PlasmaOrdered By: Williams Shepherd on 03-26-2023 Potassium [Moles/Vol] 5.0 mmol/L 3.5-5.1 [facility] Prothrombin time (PT)Ordered By: Williams Shepherd on 03-26-2023 PT Coag (PPP) [Time] 26.6 s 9.0-12.9 [facility] Comment on above: A hematocrit value g reater than 55% may lead to inaccurate results in coagulation testing. Patients having hematocrit values >55% require a special collection tube for coagulation studies. Please contact the laboratory at [phone] for redraw instructions. RBC Auto (Bld) [#/Vol]Ordere d By: Williams Shepherd on 03-26-2023 RBC (Bld) [#/Vol] 4.27 10*6/uL 3.60-5.00 [facility] Serum or plasma anion gap de terminationOrdered By: Williams Shepherd on 03-26-2023 Anion gap [Moles/Vol] 13.0 mmol/L 6.0-15.0 [facility] Sodium [Moles/volume] in Ser um or PlasmaOrdered By: Williams Shepherd on 03-26-2023 Sodium [Moles/Vol] 142 mmol/L 136-[address] [facility] Urea nitrogen [Mass/volume] in Serum or PlasmaOrdered By: Williams Shepherd on 03-26-2023 Urea nitrogen [Mass/Vol] 12 mg/dL 7-25 [facility] WBC Auto (Bld) [#/Vol]Ordere d By: Williams Shepherd on 03-26-2023 WBC (Bld) [#/Vol] 5.9 10*3/uL 3.8-11.[address] [facility] Consultation Noteon 03-17-20 Consultation Note [id number]#1 .00CD:127 Normal [facility] Lab Reportson 02-12-2023 Lab Reports [id number]#1 .00CD:127 Normal [facility] RAD - MISCon 02-12-2023 RAD - MISC [id number]#1 .00CD:127 Normal [facility] RAD - CT Reporton 02-05-2023 RAD - CT Report [id number]#1 .00CD:127 Normal [facility] RAD - MISCon 02-05-2023 RAD - MISC [id number]#1 .00CD:127 Normal [facility] Ambulatory Visit Summaryon 0 02-03-2023 Ambulatory [...] AGUIAR, Williams Venegas Where: [facility] [...] these instructions at home: Medicines ? Take esrc-jdh-wvlarto and prescription medicines only as told by [...] and follow (more content not included)... Normal [facility] Urology Office/Clinic Noteon 02-03-2023 Urology Office/Clinic Note Chief Complaint 16 month follow up w/ CT scan HPI Staff Pt is here today for 16 month follow up w/ CT scan done @[facility] on 01/15/23. CT scan shows partially [...] MD, URL [address] [place] [id number] Additional Instructions: Patient Education Kidney Stones I, Fanny Bowen, personally scribed for Dr. Shepherd on 02/03/2023 12:04:03. . Documentation recorded by the scribe, Fanny Bowen, accurately reflects the services(s) I performed and decisions made by me. Authenticated by Dr. Shepherd on 02/03/2023 12:37:35. Portions of this record may have been created with voice recognition artificial intelligence software, specifically [employer], [employer] and or [employer]. Substitutions may have occurred due to the inherent limitations of voice recognition and artificial intelligence software. Problem List/Past Medical History Ongoing Abdominal pain Anticoagulated Anxiety BMI 27.0-27.9,adult Depression Diabetes Former smoker Frequent urination Heart murmur History of uterine cancer Hx of half-way use of blood thin (more content not included)... Normal [facility] Comment on above: Result Comment: Elec tronically Signed By: Williams SHEPHERD MD\.br\Date and Time Signed: 02/03/23 12:39 EDT\.br\Electronically Co-Signed By: Fanny Bowen\.br\Date and Time Co-Signed: 02/03/23 12:04 EDT PROTIMEon 12-02-2022 INR Coag (PPP) [Relative time] 3.62 {INR} Normal [facility] Comment on above: Performed By: #### P T #### [facility] [address] [place] [address] Dr. Tg Fierro INR GUIDELINES SEE BELOW Normal [facility] Comment on above: Result Comment: LAURENCE RED INR: 2.0 - 3.0 CONDITIONS NOT LISTED BELOW 2.5 - 3.5 FOR PROSTHETIC HEART VALVE REPLACEMENT 2.5 - 3.5 RECURRENT THROMBOSIS Performed By: #### P T #### [facility] [address] [place] [address] Dr. Tg Fierro PT Coag (PPP) [Time] 35.7 s Critically high 9.0-11.6 [facility] Comment on above: Performed By: #### P T #### [facility] [address] [place] [address] Dr. Tg Fierro PROTIMEon 11-11-2022 INR Coag (PPP) [Relative time] 1.90 {INR} Normal [facility] Comment on above: Performed By: #### P T #### [facility] [address] [place] [address] Dr. Tg Fierro INR GUIDELINES SEE BELOW Normal [facility] Comment on above: Result Comment: LAURENCE RED INR: 2.0 - 3.0 CONDITIONS NOT LISTED BELOW 2.5 - 3.5 FOR PROSTHETIC HEART VALVE REPLACEMENT 2.5 - 3.5 RECURRENT THROMBOSIS Performed By: #### P T #### [facility] [address] [place] [address] Dr. Tg Fierro PT Coag (PPP) [Time] 19.4 s Critically high 9.0-11.6 [facility] Comment on above: Performed By: #### P T #### [facility] [address] [place] [address] Dr. Tg Fierro CBC AUTO DIFFon 10-25-2022 BASO # 0.0 103/ul Normal 0.0-0.1 [facility] Comment on above: Performed By: #### P T #### [facility] [address] [place] [address] Dr. Tg Fierro Basophils/100 WBC (Bld) 0.5 % Normal 0.2-2.0 [facility] Comment on above: Performed By: #### P T #### [facility] [address] [place] [address] Dr. Tg Fierro EO # 0.2 103/ul Normal 0.0-0.7 [facility] Comment on above: Performed By: #### P T #### [facility] [address] [place] [address] Dr. Tg Fierro Eosinophils/100 WBC (Bld) 2.7 % Normal 0.9-7.0 [facility] Comment on above: Performed By: #### P T #### [facility] [address] [place] [address] Dr. Tg Fierro Erythrocyte distribution width (RBC) [Ratio] 13.4 % Normal 11.0-15.0 [facility] Comment on above: Performed By: #### P T #### [facility] [address] [place] [address] Dr. Tg Fierro Hematocrit (Bld) [Volume fraction] 40.7 % Normal 36.0-48.0 [facility] Comment on above: Performed By: #### P T #### [facility] [address] [place] [address] Dr. Tg Fierro Hemoglobin (Bld) [Mass/Vol] 13.2 g/dL Normal 12.0-16.0 [facility] Comment on above: Performed By: #### P T #### [facility] [address] [place] [address] Dr. Tg Fierro IG # 0.03 10e3/ul Normal 0.00-0.03 [facility] Comment on above: Performed By: #### P T #### [facility] [address] [place] [address] Dr. Tg Fierro IG % 0.5 % Normal 0.0-0.5 [facility] Comment on above: Performed By: #### P T #### [facility] [address] [place] [address] Dr. Tg Fierro LYMPH # 2.1 103/ul Normal 1.2-3.8 [facility] Comment on above: Performed By: #### P T #### [facility] [address] [place] [address] Dr. Tg Fierro Lymphocytes/100 WBC (Bld) 34.9 % Normal 20.5-60.0 [facility] Comment on above: Performed By: #### P T #### [facility] [address] [place] [address] Dr. Tg Fierro MANUAL DIFF REQ NO Normal [facility] Comment on above: Performed By: #### P T #### [facility] [address] [place] [address] Dr. Tg Fierro MCH (RBC) [Entitic mass] 30.5 pg Normal 26.7-34.0 [facility] Comment on above: Performed By: #### P T #### [facility] [address] [place] [address] Dr. Tg Fierro MCHC (RBC) [Mass/Vol] 32.4 g/dL Normal 29.9-35.2 [facility] Comment on above: Performed By: #### P T #### [facility] [address] [place] [address] Dr. Tg Fierro MCV (RBC) [Entitic vol] 94.0 fL Normal 81.0-99.0 [facility] Comment on above: Performed By: #### P T #### [facility] [address] [place] [address] Dr. Tg Fierro MONO # 0.4 103/ul Normal 0.3-0.8 [facility] Comment on above: Performed By: #### P T #### [facility] [address] [place] [address] Dr. Tg Fierro Monocytes/100 WBC (Bld) 7.1 % Normal 1.7-12.0 [facility] Comment on above: Performed By: #### P T #### [facility] [address] [place] [address] Dr. Tg Fierro NEUT # 3.2 103/ul Normal 1.4-6.5 [facility] Comment on above: Performed By: #### P T #### [facility] [address] [place] [address] Dr. Tg Fierro Neutrophils/100 WBC (Bld) 54.3 % Normal 43.0-75.0 [facility] Comment on above: Performed By: #### P T #### [facility] [address] [place] [address] Dr. Tg Fierro Platelet mean volume (Bld) [Entitic vol] 8.7 fL Critically low 9.5-13.5 [facility] Comment on above: Performed By: #### P T #### [facility] [address] [place] [address] Dr. Tg Fierro PLT 295 103/ul Normal 150-450 [facility] Comment on above: Performed By: #### P T #### [facility] [address] [place] [address] Dr. Tg Fierro RBC 4.33 106/ul Normal 4.20-5.40 [facility] Comment on above: Performed By: #### P T #### [facility] [address] [place] [address] Dr. Tg Fierro WBC 5.9 103/ul Normal 4.0-11.0 [facility] Comment on above: Performed By: #### P T #### [facility] [address] [place] [address] Dr. Tg Fierro PROF 14(COMP METB)on 023 Albumin [Mass/Vol] 3.8 g/dL Normal 3.4-5.0 [facility] Comment on above: Performed By: #### C MP #### [facility] [address] [place] [address] Dr. Tg Fierro Albumin/Globulin [Mass ratio] 1.2 {ratio} Normal [facility] Comment on above: Performed By: #### C MP #### [facility] [address] [place] [address] Dr. Tg Fierro ALP [Catalytic activity/Vol] 49 U/L Normal 46-116 [facility] Comment on above: Performed By: #### C MP #### [facility] [address] [address] [address] Tg Fierro ALT [Catalytic activity/Vol] 21 U/L Normal 14-59 [facility] Comment on above: Performed By: #### C MP #### [facility] [address] [address] [address] Tg Fierro Anion gap [Moles/Vol] 13.3 mmol/L Normal [facility] Comment on above: Performed By: #### C MP #### [facility] [address] [address] [address] Tg Fierro AST [Catalytic activity/Vol] 14 U/L Critically low 15-37 [facility] Comment on above: Performed By: #### C MP #### [facility] [address] [place] [address] Dr. Tg Fierro Bilirubin [Mass/Vol] 0.5 mg/dL Normal 0.2-1.0 [facility] Comment on above: Performed By: #### C MP #### [facility] [address] [place] [address] Dr. Tg Fierro Calcium [Mass/Vol] 9.5 mg/dL Normal 8.5-10.1 [facility] Comment on above: Performed By: #### C MP #### [facility] [address] [address] [address] Tg Fierro Chloride [Moles/Vol] 104 mmol/L Normal 98-107 [facility] Comment on above: Performed By: #### C MP #### [facility] [address] [address] [address] Tg Fierro CO2 [Moles/Vol] 29.3 mmol/L Normal 21.0-32.0 [facility] Comment on above: Performed By: #### C MP #### [facility] [address] [address] [address] Tg Fierro Creatinine [Mass/Vol] 0.93 mg/dL Normal 0.55-1.02 [facility] Comment on above: Performed By: #### C MP #### [facility] [address] [address] [address] Tg Fierro EGFR-AF BULGARIAN >60 Normal >=60 [facility] Comment on above: Performed By: #### C MP #### [facility] [address] [address] [address] Tg Fierro EGFR-NON AF BULGARIAN 59 mL/min/1.73m2 Critically low >=60 [facility] Comment on above: Performed By: #### C MP #### [facility] [address] [address] [address] Tg Fierro Globulin (S) [Mass/Vol] 3.2 g/dL Normal [facility] Comment on above: Performed By: #### C MP #### [facility] [address] [address] [address] Tg Fierro Glucose [Mass/Vol] 186 mg/dL Critically high 74-106 [facility] Comment on above: Performed By: #### C MP #### [facility] [address] [address] [address] Tg Fierro Potassium [Moles/Vol] 4.6 mmol/L Normal 3.5-5.1 [facility] Comment on above: Performed By: #### C MP #### [facility] [address] [address] [address] Tg Fierro Protein [Mass/Vol] 7.0 g/dL Normal 6.4-8.2 [facility] Comment on above: Performed By: #### C MP #### [facility] [address] [address] [address] Tg Fierro Sodium [Moles/Vol] 142 mmol/L Normal 136-145 [facility] Comment on above: Performed By: #### C MP #### [facility] [address] [address] [address] Tg Fierro Urea nitrogen [Mass/Vol] 15.0 mg/dL Normal 7.0-18.0 [facility] Comment on above: Performed By: #### C MP #### [facility] [address] [address] [address] Tg Fierro Urea nitrogen/Creatinine [Mass ratio] 16.1 mg/mg Normal [facility] Comment on above: Performed By: #### C MP #### [facility] [address] [address] [address] Tg Fierro SED RATE WESTERGRENon 2022 SED RATE 9 mm/hr Normal <=30 [facility] Comment on above: Performed By: #### C MP #### [facility] [address] [place] [address] Dr. Tg Fierro PROTIMEon 10-14-2022 INR Coag (PPP) [Relative time] 1.94 {INR} Normal [facility] Comment on above: Performed By: #### P T #### [facility] [address] [place] [address] Dr. Tg Fierro INR GUIDELINES SEE BELOW Normal [facility] Comment on above: Result Comment: LAURENCE RED INR: 2.0 - 3.0 CONDITIONS NOT LISTED BELOW 2.5 - 3.5 FOR PROSTHETIC HEART VALVE REPLACEMENT 2.5 - 3.5 RECURRENT THROMBOSIS Performed By: #### P T #### [facility] [address] [place] [address] Dr. Tg Fierro PT Coag (PPP) [Time] 19.8 s Critically high 9.0-11.6 [facility] Comment on above: Performed By: #### P T #### [facility] [address] [place] [address] Dr. Tg Fierro CBC AUTO DIFFon 09-24-2022 BASO # 0.1 103/ul Normal 0.0-0.1 [facility] Comment on above: Performed By: #### P T #### [facility] [address] [place] [address] Dr. Tg Fierro Basophils/100 WBC (Bld) 0.7 % Normal 0.2-2.0 [facility] Comment on above: Performed By: #### P T #### [facility] [address] [place] [address] Dr. Tg Fierro EO # 0.3 103/ul Normal 0.0-0.7 [facility] Comment on above: Performed By: #### P T #### [facility] [address] [place] [address] Dr. Tg Fierro Eosinophils/100 WBC (Bld) 3.6 % Normal 0.9-7.0 [facility] Comment on above: Performed By: #### P T #### [facility] [address] [place] [address] Dr. Tg Fierro Erythrocyte distribution width (RBC) [Ratio] 13.4 % Normal 11.0-15.0 [facility] Comment on above: Performed By: #### P T #### [facility] [address] [place] [address] Dr. Tg Fierro Hematocrit (Bld) [Volume fraction] 38.4 % Normal 36.0-48.0 [facility] Comment on above: Performed By: #### P T #### [facility] [address] [place] [address] Dr. Tg Fierro Hemoglobin (Bld) [Mass/Vol] 12.7 g/dL Normal 12.0-16.0 [facility] Comment on above: Performed By: #### P T #### [facility] [address] [place] [address] Dr. Tg Fierro IG # 0.05 10e3/ul Critically high 0.00-0.03 [facility] Comment on above: Performed By: #### P T #### [facility] [address] [place] [address] Dr. Tg Fierro IG % 0.7 % Critically high 0.0-0.5 [facility] Comment on above: Performed By: #### P T #### [facility] [address] [place] [address] Dr. Tg Fierro LYMPH # 2.6 103/ul Normal 1.2-3.8 [facility] Comment on above: Performed By: #### P T #### [facility] [address] [place] [address] Dr. Tg Fierro Lymphocytes/100 WBC (Bld) 34.2 % Normal 20.5-60.0 [facility] Comment on above: Performed By: #### P T #### [facility] [address] [place] [address] Dr. Tg Fierro MANUAL DIFF REQ NO Normal [facility] Comment on above: Performed By: #### P T #### [facility] [address] [place] [address] Dr. Tg Fierro MCH (RBC) [Entitic mass] 31.2 pg Normal 26.7-34.0 [facility] Comment on above: Performed By: #### P T #### [facility] [address] [place] [address] Dr. Tg Fierro MCHC (RBC) [Mass/Vol] 33.1 g/dL Normal 29.9-35.2 [facility] Comment on above: Performed By: #### P T #### [facility] [address] [place] [address] Dr. Tg Fierro MCV (RBC) [Entitic vol] 94.3 fL Normal 81.0-99.0 [facility] Comment on above: Performed By: #### P T #### [facility] [address] [place] [address] Dr. Tg Fierro MONO # 0.6 103/ul Normal 0.3-0.8 [facility] Comment on above: Performed By: #### P T #### [facility] [address] [place] [address] Dr. Tg Fierro Monocytes/100 WBC (Bld) 8.1 % Normal 1.7-12.0 [facility] Comment on above: Performed By: #### P T #### [facility] [address] [place] [address] Dr. Tg Fierro NEUT # 4.1 103/ul Normal 1.4-6.5 [facility] Comment on above: Performed By: #### P T #### [facility] [address] [place] [address] Dr. Tg Fierro Neutrophils/100 WBC (Bld) 52.7 % Normal 43.0-75.0 [facility] Comment on above: Performed By: #### P T #### [facility] [address] [place] [address] Dr. Tg Fierro Platelet mean volume (Bld) [Entitic vol] 8.7 fL Critically low 9.5-13.5 [facility] Comment on above: Performed By: #### P T #### [facility] [address] [place] [address] Dr. Tg Fierro PLT 278 103/ul Normal 150-450 [facility] Comment on above: Performed By: #### P T #### [facility] [address] [place] [address] Dr. Tg Fierro RBC 4.07 106/ul Critically low 4.20-5.40 [facility] Comment on above: Performed By: #### P T #### [facility] [address] [place] [address] Dr. Tg Fierro WBC 7.7 103/ul Normal 4.0-11.0 [facility] Comment on above: Performed By: #### P T #### [facility] [address] [place] [address] Dr. Tg Fierro PROF 14(COMP METB)on 023 Albumin [Mass/Vol] 3.9 g/dL Normal 3.4-5.0 [facility] Comment on above: Performed By: #### C MP #### [facility] [address] [place] [address] Dr. Tg Fierro Albumin/Globulin [Mass ratio] 1.4 {ratio} Normal [facility] Comment on above: Performed By: #### C MP #### [facility] [address] [place] [address] Dr. Tg Fierro ALP [Catalytic activity/Vol] 59 U/L Normal 46-116 [facility] Comment on above: Performed By: #### C MP #### [facility] [address] [place] [address] Dr. Tg Fierro ALT [Catalytic activity/Vol] 21 U/L Normal 14-59 [facility] Comment on above: Performed By: #### C MP #### [facility] [address] [address] [address] Tg Fierro Anion gap [Moles/Vol] 10.8 mmol/L Normal [facility] Comment on above: Performed By: #### C MP #### [facility] [address] [address] [address] Tg Fierro AST [Catalytic activity/Vol] 9 U/L Critically low 15-37 [facility] Comment on above: Performed By: #### C MP #### [facility] [address] [address] [address] Tg Fierro Bilirubin [Mass/Vol] 0.3 mg/dL Normal 0.2-1.0 [facility] Comment on above: Performed By: #### C MP #### [facility] [address] [address] [address] Tg Fierro Calcium [Mass/Vol] 9.1 mg/dL Normal 8.5-10.1 [facility] Comment on above: Performed By: #### C MP #### [facility] [address] [address] [address] Tg Fierro Chloride [Moles/Vol] 104 mmol/L Normal 98-107 [facility] Comment on above: Performed By: #### C MP #### [facility] [address] [address] [address] Tg Fierro CO2 [Moles/Vol] 28.3 mmol/L Normal 21.0-32.0 [facility] Comment on above: Performed By: #### C MP #### [facility] [address] [address] [address] Tg Fierro Creatinine [Mass/Vol] 0.86 mg/dL Normal 0.55-1.02 [facility] Comment on above: Performed By: #### C MP #### [facility] [address] [address] [address] Tg Fierro EGFR-AF BULGARIAN >60 Normal >=60 [facility] Comment on above: Performed By: #### C MP #### [facility] [address] [address] [address] Tg Fierro EGFR-NON AF BULGARIAN >60 Normal >=60 [facility] Comment on above: Performed By: #### C MP #### [facility] [address] [address] [address] Tg Fierro Globulin (S) [Mass/Vol] 2.7 g/dL Normal [facility] Comment on above: Performed By: #### C MP #### [facility] [address] [address] [address] Tg Fierro Glucose [Mass/Vol] 120 mg/dL Critically high 74-106 [facility] Comment on above: Performed By: #### C MP #### [facility] [address] [address] [address] Tg Fierro Potassium [Moles/Vol] 4.1 mmol/L Normal 3.5-5.1 [facility] Comment on above: Performed By: #### C MP #### [facility] [address] [address] [address] Tg Fierro Protein [Mass/Vol] 6.6 g/dL Normal 6.4-8.2 [facility] Comment on above: Performed By: #### C MP #### [facility] [address] [place] [address] Dr. Tg Fierro Sodium [Moles/Vol] 139 mmol/L Normal 136-145 [facility] Comment on above: Performed By: #### C MP #### [facility] [address] [address] [address] Tg Fierro Urea nitrogen [Mass/Vol] 13.0 mg/dL Normal 7.0-18.0 [facility] Comment on above: Performed By: #### C MP #### [facility] [address] [place] [address] Dr. Tg Fierro Urea nitrogen/Creatinine [Mass ratio] 15.1 mg/mg Normal [facility] Comment on above: Performed By: #### C MP #### [facility] [address] [place] [address] Dr. Tg Fierro PROTIMEon 09-24-2022 INR Coag (PPP) [Relative time] 1.35 {INR} Normal [facility] Comment on above: Performed By: #### P T #### [facility] [address] [place] [address] Dr. Tg Fierro INR GUIDELINES SEE BELOW Normal [facility] Comment on above: Result Comment: LAURENCE RED INR: 2.0 - 3.0 CONDITIONS NOT LISTED BELOW 2.5 - 3.5 FOR PROSTHETIC HEART VALVE REPLACEMENT 2.5 - 3.5 RECURRENT THROMBOSIS Performed By: #### P T #### [facility] [address] [place] [address] Dr. Tg Fierro PT Coag (PPP) [Time] 14.1 s Critically high 9.0-11.6 [facility] Comment on above: Performed By: #### P T #### [facility] [address] [place] [address] Dr. Tg Fierro SED RATE [facility] 2022 SED RATE 8 mm/hr Normal <=30 [facility] Comment on above: Performed By: #### C MP #### [facility] [address] [place] [address] Dr. Tg Fierro PROTIMEon 09-09-2022 INR Coag (PPP) [Relative time] 1.23 {INR} Normal [facility] Comment on above: Performed By: #### P T #### [facility] [address] [place] [address] Dr. Tg Fierro INR GUIDELINES SEE BELOW Normal [facility] Comment on above: Result Comment: LAURENCE RED INR: 2.0 - 3.0 CONDITIONS NOT LISTED BELOW 2.5 - 3.5 FOR PROSTHETIC HEART VALVE REPLACEMENT 2.5 - 3.5 RECURRENT THROMBOSIS Performed By: #### P T #### [facility] [address] [place] [address] Dr. Tg Fierro PT Coag (PPP) [Time] 12.9 s Critically high 9.0-11.6 [facility] Comment on above: Performed By: #### P T #### [facility] [address] [address] [address] Tg Fierro ECHOCARDIO M/2D COMPLETEon 0 09-02-2022 ECHOCARDIO M/2D COMPLETE Patient: WILDA SEN Exam Date: 09/02/2022 : 1945 Gender:F Ordering : DR JAYME PEREZ . Admission #: [id number] Family : Order #: [id number] CLICK HERE TO VIEW EXAM ECHOCARDIOGRAM REPORT [...] Bender M.D. on 09/03/2022 at 17:25 Normal [facility] GLYCOHEMOGLOBIN A1Con 2022 ADA RECOMMENDATION SEE BELOW Normal [facility] Comment on above: Result Comment: ADA RECOMMENDED LIMIT 4.0 - 6.0 ADA THERAPEUTIC TARGET < 7.0 ACTION SUGGESTED > 7.0 Performed By: #### A 1C #### [facility] [address] [place] [address] Dr. Tg Fierro Glucose [Mass/Vol] 148 mg/dL Normal [facility] Comment on above: Performed By: #### A 1C #### [facility] [address] [place] [address] Dr. Tg Fierro HbA1c (Bld) [Mass fraction] 6.8 % Critically high 4.5-6.2 [facility] Comment on above: Performed By: #### A 1C #### [facility] [address] [place] [address] Dr. Tg Fierro CBC AUTO DIFFon 08-05-2022 BASO # 0.1 103/ul Normal 0.0-0.1 [facility] Comment on above: Performed By: #### C BC #### [facility] [address] [place] [address] Dr. Tg Fierro Basophils/100 WBC (Bld) 0.8 % Normal 0.2-2.0 [facility] Comment on above: Performed By: #### C BC #### [facility] [address] [place] [address] Dr. Tg Fierro EO # 0.5 103/ul Normal 0.0-0.7 [facility] Comment on above: Performed By: #### C BC #### [facility] [address] [place] [address] Dr. Tg Fierro Eosinophils/100 WBC (Bld) 7.3 % Critically high 0.9-7.0 [facility] Comment on above: Performed By: #### C BC #### [facility] [address] [place] [address] Dr. Tg Fierro Erythrocyte distribution width (RBC) [Ratio] 13.4 % Normal 11.0-15.0 [facility] Comment on above: Performed By: #### C BC #### [facility] [address] [place] [address] Dr. Tg Fierro Hematocrit (Bld) [Volume fraction] 37.1 % Normal 36.0-48.0 [facility] Comment on above: Performed By: #### C BC #### [facility] [address] [place] [address] Dr. Tg Fierro Hemoglobin (Bld) [Mass/Vol] 12.9 g/dL Normal 12.0-16.0 [facility] Comment on above: Performed By: #### C BC #### [facility] [address] [place] [address] Dr. Tg Fierro IG # 0.03 10e3/ul Normal 0.00-0.03 [facility] Comment on above: Performed By: #### C BC #### [facility] [address] [place] [address] Dr. Tg Fierro IG % 0.5 % Normal 0.0-0.5 [facility] Comment on above: Performed By: #### C BC #### [facility] [address] [place] [address] Dr. Tg Fierro LYMPH # 2.3 103/ul Normal 1.2-3.8 [facility] Comment on above: Performed By: #### C BC #### [facility] [address] [place] [address] Dr. Tg Fierro Lymphocytes/100 WBC (Bld) 34.9 % Normal 20.5-60.0 [facility] Comment on above: Performed By: #### C BC #### [facility] [address] [place] [address] Dr. Tg Fierro MANUAL DIFF REQ NO Normal [facility] Comment on above: Performed By: #### C BC #### [facility] [address] [place] [address] Dr. Tg Fierro MCH (RBC) [Entitic mass] 31.0 pg Normal 26.7-34.0 [facility] Comment on above: Performed By: #### C BC #### [facility] [address] [address] [address] Tg Fierro MCHC (RBC) [Mass/Vol] 34.8 g/dL Normal 29.9-35.2 [facility] Comment on above: Performed By: #### C BC #### [facility] [address] [address] [address] Tg Fierro MCV (RBC) [Entitic vol] 89.2 fL Normal 81.0-99.0 [facility] Comment on above: Performed By: #### C BC #### [facility] [address] [place] [address] Dr. Tg Fierro MONO # 0.4 103/ul Normal 0.3-0.8 [facility] Comment on above: Performed By: #### C BC #### [facility] [address] [place] [address] Dr. Tg Fierro Monocytes/100 WBC (Bld) 6.1 % Normal 1.7-12.0 [facility] Comment on above: Performed By: #### C BC #### [facility] [address] [place] [address] Dr. Tg Fierro NEUT # 3.3 103/ul Normal 1.4-6.5 [facility] Comment on above: Performed By: #### C BC #### [facility] [address] [place] [address] Dr. Tg Fierro Neutrophils/100 WBC (Bld) 50.4 % Normal 43.0-75.0 [facility] Comment on above: Performed By: #### C BC #### [facility] [address] [address] [address] Tg Fierro Platelet mean volume (Bld) [Entitic vol] 8.6 fL Critically low 9.5-13.5 [facility] Comment on above: Performed By: #### C BC #### [facility] [address] [place] [address] Dr. Tg Fierro PLT 336 103/ul Normal 150-450 [facility] Comment on above: Performed By: #### C BC #### [facility] [address] [address] [address] Tg Fierro RBC 4.16 106/ul Critically low 4.20-5.40 [facility] Comment on above: Performed By: #### C BC #### [facility] [address] [address] [address] Tg Fierro WBC 6.4 103/ul Normal 4.0-11.0 [facility] Comment on above: Performed By: #### C BC #### [facility] [address] [address] [address] Tg Fierro PROF 14(COMP METB)on 023 Albumin [Mass/Vol] 3.9 g/dL Normal 3.4-5.0 [facility] Comment on above: Performed By: #### P T #### [facility] [address] [place] [address] Dr. Tg Fierro Albumin/Globulin [Mass ratio] 1.3 {ratio} Normal [facility] Comment on above: Performed By: #### P T #### [facility] [address] [place] [address] Dr. Tg Fierro ALP [Catalytic activity/Vol] 60 U/L Normal 46-116 [facility] Comment on above: Performed By: #### P T #### [facility] [address] [place] [address] Dr. Tg Fierro ALT [Catalytic activity/Vol] 21 U/L Normal 14-59 [facility] Comment on above: Performed By: #### P T #### [facility] [address] [place] [address] Dr. Tg Fierro Anion gap [Moles/Vol] 15.2 mmol/L Normal [facility] Comment on above: Performed By: #### P T #### [facility] [address] [place] [address] Dr. Tg Fierro AST [Catalytic activity/Vol] 14 U/L Critically low 15-37 [facility] Comment on above: Performed By: #### P T #### [facility] [address] [address] [address] Tg Fierro Bilirubin [Mass/Vol] 0.4 mg/dL Normal 0.2-1.0 [facility] Comment on above: Performed By: #### P T #### [facility] [address] [address] [address] Tg Fierro Calcium [Mass/Vol] 9.3 mg/dL Normal 8.5-10.1 [facility] Comment on above: Performed By: #### P T #### [facility] [address] [address] [address] Tg Fierro Chloride [Moles/Vol] 102 mmol/L Normal 98-107 [facility] Comment on above: Performed By: #### P T #### [facility] [address] [place] [address] Dr. Tg Fierro CO2 [Moles/Vol] 26.8 mmol/L Normal 21.0-32.0 [facility] Comment on above: Performed By: #### P T #### [facility] [address] [place] [address] Dr. Tg Fierro Creatinine [Mass/Vol] 0.74 mg/dL Normal 0.55-1.02 [facility] Comment on above: Performed By: #### P T #### [facility] [address] [place] [address] Dr. Tg Feirro EGFR-AF BULGARIAN >60 Normal >=60 [facility] Comment on above: Performed By: #### P T #### [facility] [address] [place] [address] Dr. Tg Fierro EGFR-NON AF BULGARIAN >60 Normal >=60 [facility] Comment on above: Performed By: #### P T #### [facility] [address] [place] [address] Dr. Tg Fierro Globulin (S) [Mass/Vol] 3.1 g/dL Normal [facility] Comment on above: Performed By: #### P T #### [facility] [address] [place] [address] Dr. Tg Fierro Glucose [Mass/Vol] 148 mg/dL Critically high 74-106 T [facility] Comment on above: Performed By: #### P T #### [facility] [address] [place] [address] Dr. Tg Fierro Potassium [Moles/Vol] 4.0 mmol/L Normal 3.5-5.1 [facility] Comment on above: Performed By: #### P T #### [facility] [address] [place] [address] Dr. Tg Fierro Protein [Mass/Vol] 7.0 g/dL Normal 6.4-8.2 [facility] Comment on above: Performed By: #### P T #### [facility] [address] [place] [address] Dr. Tg Fierro Sodium [Moles/Vol] 140 mmol/L Normal 136-145 [facility] Comment on above: Performed By: #### P T #### [facility] [address] [place] [address] Dr. Tg Fierro Urea nitrogen [Mass/Vol] 12.0 mg/dL Normal 7.0-18.0 [facility] Comment on above: Performed By: #### P T #### [facility] [address] [place] [address] Dr. Tg Fierro Urea nitrogen/Creatinine [Mass ratio] 16.2 mg/mg Normal [facility] Comment on above: Performed By: #### P T #### [facility] [address] [place] [address] Dr. Tg Fierro SED RATE WESTERGREN 2022 SED RATE 30 mm/hr Normal <=30 [facility] Comment on above: Performed By: #### S EDR #### [facility] [address] [place] [address] Dr. Tg Fierro CBC AUTO DIFFon 04-15-2022 BASO # 0.1 103/ul Normal 0.0-0.1 [facility] Comment on above: Performed By: #### C BC #### [facility] [address] [place] [address] Dr. Tg Fierro Basophils/100 WBC (Bld) 0.6 % Normal 0.2-2.0 [facility] Comment on above: Performed By: #### C BC #### [facility] [address] [place] [address] Dr. Tg Fierro EO # 0.2 103/ul Normal 0.0-0.7 [facility] Comment on above: Performed By: #### C BC #### [facility] [address] [place] [address] Dr. Tg Fierro Eosinophils/100 WBC (Bld) 3.1 % Normal 0.9-7.0 [facility] Comment on above: Performed By: #### C BC #### [facility] [address] [place] [address] Dr. Tg Fierro Erythrocyte distribution width (RBC) [Ratio] 13.6 % Normal 11.0-15.0 [facility] Comment on above: Performed By: #### C BC #### [facility] [address] [place] [address] Dr. Tg Fierro Hematocrit (Bld) [Volume fraction] 42.3 % Normal 36.0-48.0 [facility] Comment on above: Performed By: #### C BC #### [facility] [address] [place] [address] Dr. Tg Fierro Hemoglobin (Bld) [Mass/Vol] 13.2 g/dL Normal 12.0-16.0 [facility] Comment on above: Performed By: #### C BC #### [facility] [address] [place] [address] Dr. Tg Fierro IG # 0.04 10e3/ul Critically high 0.00-0.03 [facility] Comment on above: Performed By: #### C BC #### [facility] [address] [place] [address] Dr. Tg Fierro IG % 0.5 % Normal 0.0-0.5 [facility] Comment on above: Performed By: #### C BC #### [facility] [address] [place] [address] Dr. Tg Fierro LYMPH # 2.5 103/ul Normal 1.2-3.8 [facility] Comment on above: Performed By: #### C BC #### [facility] [address] [place] [address] Dr. Tg Fierro Lymphocytes/100 WBC (Bld) 31.6 % Normal 20.5-60.0 [facility] Comment on above: Performed By: #### C BC #### [facility] [address] [place] [address] Dr. Tg Fierro MANUAL DIFF REQ NO Normal [facility] Comment on above: Performed By: #### C BC #### [facility] [address] [place] [address] Dr. Tg Fierro MCH (RBC) [Entitic mass] 30.3 pg Normal 26.7-34.0 [facility] Comment on above: Performed By: #### C BC #### [facility] [address] [place] [address] Dr. Tg Fierro MCHC (RBC) [Mass/Vol] 31.2 g/dL Normal 29.9-35.2 [facility] Comment on above: Performed By: #### C BC #### [facility] [address] [place] [address] Dr. Tg Fierro MCV (RBC) [Entitic vol] 97.0 fL Normal 81.0-99.0 [facility] Comment on above: Performed By: #### C BC #### [facility] [address] [place] [address] Dr. Tg Fierro MONO # 0.5 103/ul Normal 0.3-0.8 [facility] Comment on above: Performed By: #### C BC #### [facility] [address] [place] [address] Dr. Tg Fierro Monocytes/100 WBC (Bld) 6.3 % Normal 1.7-12.0 [facility] Comment on above: Performed By: #### C BC #### [facility] [address] [place] [address] Dr. Tg Fierro NEUT # 4.5 103/ul Normal 1.4-6.5 [facility] Comment on above: Performed By: #### C BC #### [facility] [address] [address] [address] Tg Fierro Neutrophils/100 WBC (Bld) 57.9 % Normal 43.0-75.0 [facility] Comment on above: Performed By: #### C BC #### [facility] [address] [place] [address] Dr. Tg Fierro Platelet mean volume (Bld) [Entitic vol] 8.6 fL Critically low 9.5-13.5 [facility] Comment on above: Performed By: #### C BC #### [facility] [address] [place] [address] Dr. Tg Fierro PLT 295 103/ul Normal 150-450 [facility] Comment on above: Performed By: #### C BC #### [facility] [address] [place] [address] Dr. Tg Fierro RBC 4.36 106/ul Normal 4.20-5.40 [facility] Comment on above: Performed By: #### C BC #### [facility] [address] [place] [address] Dr. Tg Fierro WBC 7.8 103/ul Normal 4.0-11.0 [facility] Comment on above: Performed By: #### C BC #### [facility] [address] [place] [address] Dr. Tg Fierro PROF 14(COMP METB)on 022 Albumin [Mass/Vol] 4.5 g/dL Normal 3.4-5.0 [facility] Comment on above: Performed By: #### C MP #### [facility] [address] [place] [address] Dr. Tg Fierro Albumin/Globulin [Mass ratio] 1.5 {ratio} Normal [facility] Comment on above: Performed By: #### C MP #### [facility] [address] [place] [address] Dr. Tg Fierro ALP [Catalytic activity/Vol] 62 U/L Normal 46-116 [facility] Comment on above: Performed By: #### C MP #### [facility] [address] [address] [address] Tg Fierro ALT [Catalytic activity/Vol] 25 U/L Normal 14-59 [facility] Comment on above: Performed By: #### C MP #### [facility] [address] [address] [address] Tg Fierro Anion gap [Moles/Vol] 10.6 mmol/L Normal [facility] Comment on above: Performed By: #### C MP #### [facility] [address] [address] [address] Tg Fierro AST [Catalytic activity/Vol] 12 U/L Critically low 15-37 [facility] Comment on above: Performed By: #### C MP #### [facility] [address] [address] [address] Tg Fierro Bilirubin [Mass/Vol] 0.5 mg/dL Normal 0.2-1.0 [facility] Comment on above: Performed By: #### C MP #### [facility] [address] [address] [address] Tg Fierro Calcium [Mass/Vol] 9.8 mg/dL Normal 8.5-10.1 [facility] Comment on above: Performed By: #### C MP #### [facility] [address] [address] [address] Tg Fierro Chloride [Moles/Vol] 102 mmol/L Normal 98-107 [facility] Comment on above: Performed By: #### C MP #### [facility] [address] [address] [address] Tg Fierro CO2 [Moles/Vol] 31.8 mmol/L Normal 21.0-32.0 [facility] Comment on above: Performed By: #### C MP #### [facility] [address] [address] [address] Tg Fierro Creatinine [Mass/Vol] 0.88 mg/dL Normal 0.55-1.02 [facility] Comment on above: Performed By: #### C MP #### [facility] [address] [address] [address] Tg Fierro EGFR-AF BULGARIAN >60 Normal >=60 [facility] Comment on above: Performed By: #### C MP #### [facility] [address] [address] [address] Tg Fierro EGFR-NON AF BULGARIAN >60 Normal >=60 [facility] Comment on above: Performed By: #### C MP #### [facility] [address] [address] [address] Tg Fierro Globulin (S) [Mass/Vol] 3.1 g/dL Normal [facility] Comment on above: Performed By: #### C MP #### [facility] [address] [address] [address] Tg Fierro Glucose [Mass/Vol] 187 mg/dL Critically high 74-106 T [facility] Comment on above: Performed By: #### C MP #### [facility] [address] [address] [address] Tg Fierro Potassium [Moles/Vol] 4.4 mmol/L Normal 3.5-5.1 [facility] Comment on above: Performed By: #### C MP #### [facility] [address] [place] [address] Dr. Tg Fierro Protein [Mass/Vol] 7.6 g/dL Normal 6.4-8.2 [facility] Comment on above: Performed By: #### C MP #### [facility] [address] [address] [address] Tg Fierro Sodium [Moles/Vol] 140 mmol/L Normal 136-145 [facility] Comment on above: Performed By: #### C MP #### [facility] [address] [address] [address] Tg Fierro Urea nitrogen [Mass/Vol] 14.0 mg/dL Normal 7.0-18.0 [facility] Comment on above: Performed By: #### C MP #### [facility] [address] [place] [address] Dr. Tg Fierro Urea nitrogen/Creatinine [Mass ratio] 15.9 mg/mg Normal [facility] Comment on above: Performed By: #### C MP #### [facility] [address] [place] [address] Dr. Tg Fierro SED RATE WESTERGRENon 2021 SED RATE 5 mm/hr Normal <=30 [facility] Comment on above: Performed By: #### S EDR #### [facility] [address] [place] [address] Dr. Tg Fierro CBC AUTO DIFFon 02-07-2022 BASO # 0.0 103/ul Normal 0.0-0.1 [facility] Comment on above: Performed By: #### P T #### [facility] [address] [place] [address] Dr. Tg Fierro Basophils/100 WBC (Bld) 0.6 % Normal 0.2-2.0 [facility] Comment on above: Performed By: #### P T #### [facility] [address] [place] [address] Dr. Tg Fierro EO # 0.4 103/ul Normal 0.0-0.7 [facility] Comment on above: Performed By: #### P T #### [facility] [address] [place] [address] Dr. Tg Fierro Eosinophils/100 WBC (Bld) 5.4 % Normal 0.9-7.0 [facility] Comment on above: Performed By: #### P T #### [facility] [address] [place] [address] Dr. gT Fierro Erythrocyte distribution width (RBC) [Ratio] 13.5 % Normal 11.0-15.0 [facility] Comment on above: Performed By: #### P T #### [facility] [address] [place] [address] Dr. Tg Fierro Hematocrit (Bld) [Volume fraction] 39.4 % Normal 36.0-48.0 [facility] Comment on above: Performed By: #### P T #### [facility] [address] [place] [address] Dr. Tg Fierro Hemoglobin (Bld) [Mass/Vol] 12.8 g/dL Normal 12.0-16.0 [facility] Comment on above: Performed By: #### P T #### [facility] [address] [place] [address] Dr. Tg Fierro IG # 0.02 10e3/ul Normal 0.00-0.03 [facility] Comment on above: Performed By: #### P T #### [facility] [address] [place] [address] Dr. Tg Fierro IG % 0.3 % Normal 0.0-0.5 [facility] Comment on above: Performed By: #### P T #### [facility] [address] [place] [address] Dr. Tg Fierro LYMPH # 2.4 103/ul Normal 1.2-3.8 [facility] Comment on above: Performed By: #### P T #### [facility] [address] [place] [address] Dr. Tg Fierro Lymphocytes/100 WBC (Bld) 36.2 % Normal 20.5-60.0 [facility] Comment on above: Performed By: #### P T #### [facility] [address] [place] [address] Dr. Tg Fierro MANUAL DIFF REQ NO Normal [facility] Comment on above: Performed By: #### P T #### [facility] [address] [place] [address] Dr. Tg Fierro MCH (RBC) [Entitic mass] 31.0 pg Normal 26.7-34.0 [facility] Comment on above: Performed By: #### P T #### [facility] [address] [place] [address] Dr. Tg Fierro MCHC (RBC) [Mass/Vol] 32.5 g/dL Normal 29.9-35.2 [facility] Comment on above: Performed By: #### P T #### [facility] [address] [place] [address] Dr. Tg Fierro MCV (RBC) [Entitic vol] 95.4 fL Normal 81.0-99.0 [facility] Comment on above: Performed By: #### P T #### [facility] [address] [place] [address] Dr. Tg Fierro MONO # 0.5 103/ul Normal 0.3-0.8 [facility] Comment on above: Performed By: #### P T #### [facility] [address] [place] [address] Dr. Tg Fierro Monocytes/100 WBC (Bld) 8.0 % Normal 1.7-12.0 [facility] Comment on above: Performed By: #### P T #### [facility] [address] [place] [address] Dr. Tg Fierro NEUT # 3.3 103/ul Normal 1.4-6.5 [facility] Comment on above: Performed By: #### P T #### [facility] [address] [place] [address] Dr. Tg Fierro Neutrophils/100 WBC (Bld) 49.5 % Normal 43.0-75.0 [facility] Comment on above: Performed By: #### P T #### [facility] [address] [place] [address] Dr. Tg Fierro Platelet mean volume (Bld) [Entitic vol] 8.7 fL Critically low 9.5-13.5 [facility] Comment on above: Performed By: #### P T #### [facility] [address] [place] [address] Dr. Tg Fierro PLT 276 103/ul Normal 150-450 [facility] Comment on above: Performed By: #### P T #### [facility] [address] [place] [address] Dr. Tg Fierro RBC 4.13 106/ul Critically low 4.20-5.40 [facility] Comment on above: Performed By: #### P T #### [facility] [address] [place] [address] Dr. Tg Fierro WBC 6.7 103/ul Normal 4.0-11.0 [facility] Comment on above: Performed By: #### P T #### [facility] [address] [place] [address] Dr. Tg Fierro GLYCOHEMOGLOBIN A1Con 2021 ADA RECOMMENDATION SEE BELOW Normal [facility] Comment on above: Result Comment: ADA RECOMMENDED LIMIT 4.0 - 6.0 ADA THERAPEUTIC TARGET < 7.0 ACTION SUGGESTED > 7.0 Performed By: #### A 1C #### [facility] [address] [place] [address] Dr. Tg Fierro Glucose [Mass/Vol] 151 mg/dL Normal [facility] Comment on above: Performed By: #### A 1C #### [facility] [address] [place] [address] Dr. Tg Fierro HbA1c (Bld) [Mass fraction] 6.9 % Critically high 4.5-6.2 [facility] Comment on above: Performed By: #### A 1C #### [facility] [address] [place] [address] Dr. Tg Fierro PROF 14(COMP METB)on 022 Albumin [Mass/Vol] 3.8 g/dL Normal 3.4-5.0 [facility] Comment on above: Performed By: #### P T #### [facility] [address] [place] [address] Dr. Tg Fierro Albumin/Globulin [Mass ratio] 1.3 {ratio} Normal [facility] Comment on above: Performed By: #### P T #### [facility] [address] [place] [address] Dr. Tg Fierro ALP [Catalytic activity/Vol] 43 U/L Critically low 46-116 [facility] Comment on above: Performed By: #### P T #### [facility] [address] [place] [address] Dr. Tg Fierro ALT [Catalytic activity/Vol] 19 U/L Normal 14-59 [facility] Comment on above: Performed By: #### P T #### [facility] [address] [place] [address] Dr. Tg Fierro Anion gap [Moles/Vol] 13.7 mmol/L Normal [facility] Comment on above: Performed By: #### P T #### [facility] [address] [address] [address] Tg Fierro AST [Catalytic activity/Vol] 11 U/L Critically low 15-37 [facility] Comment on above: Performed By: #### P T #### [facility] [address] [address] [address] Tg Fierro Bilirubin [Mass/Vol] 0.4 mg/dL Normal 0.2-1.0 [facility] Comment on above: Performed By: #### P T #### [facility] [address] [place] [address] Dr. Tg Fierro Calcium [Mass/Vol] 9.1 mg/dL Normal 8.5-10.1 [facility] Comment on above: Performed By: #### P T #### [facility] [address] [address] [address] Tg Fierro Chloride [Moles/Vol] 104 mmol/L Normal 98-107 [facility] Comment on above: Performed By: #### P T #### [facility] [address] [place] [address] Dr. Tg Fierro CO2 [Moles/Vol] 28.5 mmol/L Normal 21.0-32.0 [facility] Comment on above: Performed By: #### P T #### [facility] [address] [place] [address] Dr. Tg Fierro Creatinine [Mass/Vol] 0.77 mg/dL Normal 0.55-1.02 [facility] Comment on above: Performed By: #### P T #### [facility] [address] [address] [address] Tg Fierro EGFR-AF BULGARIAN >60 Normal >=60 [facility] Comment on above: Performed By: #### P T #### [facility] [address] [place] [address] Dr. Tg Fierro EGFR-NON AF BULGARIAN >60 Normal >=60 [facility] Comment on above: Performed By: #### P T #### [facility] [address] [address] [address] Tg Fierro Globulin (S) [Mass/Vol] 3.0 g/dL Normal [facility] Comment on above: Performed By: #### P T #### [facility] [address] [address] [address] Tg Fierro Glucose [Mass/Vol] 124 mg/dL Critically high 74-106 T [facility] Comment on above: Performed By: #### P T #### [facility] [address] [address] [address] Tg Fierro Potassium [Moles/Vol] 4.2 mmol/L Normal 3.5-5.1 [facility] Comment on above: Performed By: #### P T #### [facility] [address] [place] [address] Dr. Tg Fierro Protein [Mass/Vol] 6.8 g/dL Normal 6.4-8.2 [facility] Comment on above: Performed By: #### P T #### [facility] [address] [place] [address] Dr. Tg Fierro Sodium [Moles/Vol] 142 mmol/L Normal 136-145 [facility] Comment on above: Performed By: #### P T #### [facility] [address] [place] [address] Dr. Tg Fierro Urea nitrogen [Mass/Vol] 12.0 mg/dL Normal 7.0-18.0 [facility] Comment on above: Performed By: #### P T #### [facility] [address] [place] [address] Dr. Tg Fierro Urea nitrogen/Creatinine [Mass ratio] 15.6 mg/mg Normal [facility] Comment on above: Performed By: #### P T #### [facility] [address] [place] [address] Dr. Tg Fierro SED RATE [facility] 2021 SED RATE 8 mm/hr Normal <=30 [facility] Comment on above: Performed By: #### C MP #### [facility] [address] [address] [address] Tg MCKEON [employer] 2020 Result Positive [employer] Other Vital Signs Date Time Vital Sign Value Performing Clinician Facility 04-15-2024 14:16-0400 Body height 160 cm Jayme Perez MD Work Phone: [facility] 04-15-2024 14:16-0400 Body mass index (BMI) [Ratio] 21.79 kg/m2 Jayme Perez MD Work Phone: [facility] 04-15-2024 14:16-0400 Body weight 55.79 kg Jayme Perez MD Work Phone: [facility] 04-15-2024 14:16-0400 Diastolic blood pressure 70 mm[Hg] Jayme Perez MD Work Phone: [facility] 04-15-2024 14:16-0400 Heart rate 87 /min Jayme Perez MD Work Phone: [facility] 04-15-2024 14:16-0400 SaO2% (BldA) [Mass fraction] 98 % Jayme Perez MD Work Phone: [facility] 04-15-2024 14:16-0400 Systolic blood pressure 120 mm[Hg] Jayme Perez MD Work Phone: [facility] 10-14-2023 09:09-0400 Body temperature 98.6 [degF] Williams SHEPHERD [facility] 10-14-2023 09:09-0400 Diastolic blood pressure 61 mm[Hg] Williams SHEPHERD [facility] 10-14-2023 09:09-0400 Heart rate 80 /min Williams SHEPHERD [facility] 10-14-2023 09:09-0400 Respiratory rate 16 /min Williams SHEPHERD [facility] 10-14-2023 09:09-0400 Systolic blood pressure 115 mm[Hg] Williams SHEPHERD [facility] 08-13-2023 10:47-0500 Blood Pressure Location Renato SANTACRUZ [facility] 08-13-2023 10:47-0500 Diastolic blood pressure 62 mm[Hg] Renato SANTACRUZ [facility] 08-13-2023 10:47-0500 Heart rate 82 /min Renato SANTACRUZ [facility] 08-13-2023 10:47-0500 Respiratory rate 16 /min Renato SANTACRUZ [facility] 08-13-2023 10:47-0500 Systolic blood pressure 105 mm[Hg] Renato SANTACRUZ [facility] 08-07-2023 09:48-0500 Body height 160 cm Jayme Perez MD Work Phone: [facility] 08-07-2023 09:48-0500 Body mass index (BMI) [Ratio] 24.45 kg/m2 Jayme Perez MD Work Phone: [facility] 08-07-2023 09:48-0500 Body weight 62.6 kg Jayme Perez MD Work Phone: [facility] 08-07-2023 09:48-0500 Heart rate 57 /min Jayme Perez MD Work Phone: [facility] 08-07-2023 09:48-0500 SaO2% (BldA) [Mass fraction] 98 % Jayme Perez MD Work Phone: [facility] 07-25-2023 09:20-0500 Body height 160.02 cm Lou Glover Other [facility] Other 07-25-2023 09:20-0500 Body mass index (BMI) [Ratio] 23.91 kg/m2 Lou Glover Other [facility] Other 07-25-2023 09:20-0500 Body temperature 97.7 [degF] Lou Glover Other [facility] Other 07-25-2023 09:20-0500 Body weight 61.24 kg Lou Glover Other [facility] Other 07-25-2023 09:20-0500 Diastolic blood pressure 74 mm[Hg] Lou Glover Other [facility] Other 07-25-2023 09:20-0500 Respiratory rate 18 /min Lou Glover Other [facility] Other 07-25-2023 09:20-0500 SaO2% (BldA) [Mass fraction] 96 % Lou Glover Other [facility] Other 07-25-2023 09:20-0500 Systolic blood pressure 120 mm[Hg] Lou Glover Other [facility] Other 03-26-2023 13:15-0400 Body height 160.02 cm MD Jayme Perez Work Phone: [facility] 03-26-2023 13:15-0400 Body temperature 98.2 [degF] MD Jayme Perez Work Phone: [facility] 03-26-2023 13:15-0400 Body weight 66 kg MD Jayme Perez Work Phone: [facility] 03-26-2023 13:15-0400 Diastolic blood pressure 71 mm[Hg] MD Jayme Perez Work Phone: [facility] 03-26-2023 13:15-0400 Heart rate 87 /min MD Jayme Perez Work Phone: [facility] 03-26-2023 13:15-0400 Respiratory rate 16 /min MD Jayme Perez Work Phone: [facility] 03-26-2023 13:15-0400 SaO2% (BldA) [Mass fraction] 97 % MD Jayme Perez Work Phone: [facility] 03-26-2023 13:15-0400 Systolic blood pressure 117 mm[Hg] MD Jayme Perez Work Phone: [facility] 05-21-2021 13:15-0500 Body height 160.02 cm Astrid Baker Other [facility] Other 05-21-2021 13:15-0500 Body mass index (BMI) [Ratio] 23.91 kg/m2 Astrid Baker Other [facility] Other 05-21-2021 13:15-0500 Body temperature 97.3 [degF] Astrid Baker Other [facility] Other 05-21-2021 13:15-0500 Body weight 61.24 kg Astrid Baker Other [facility] Other 05-21-2021 13:15-0500 SaO2% (BldA) [Mass fraction] 94 % Astrid Baker Other [facility] Other Encounters Encounter Date Encounter Type Care Provider Facility Start: 04-22-2024 End: 04-22-2024 Clinisync Result Encounter Jayme Perez MD Work Phone: [facility]solic[facility] Start: 04-22-2024 End: 04-22-2024 Clinisync Result Encounter Jayme Perez MD Work Phone: [facility] Start: 04-16-2024 End: 04-16-2024 Clinisync Result Encounter Generic External Data Provider [facility] Start: 04-16-2024 End: 04-16-2024 Clinisync Result Encounter Generic External Data Provider [facility] Start: 04-15-2024 End: 04-15-2024 Office outpatient visit 25 minutes Jayme Perez MD Work Phone: [facility] Comment on above: Paroxysmal atrial fi brillation (CMS/HCC) (Primary Dx); 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; Type 2 diabetes mellitus with stage 3a chronic kidney disease, without long-term current use of insulin (HCC) (CMS/HCC); Stage 3a chronic kidney disease (HCC) (CMS/HCC); Microalbuminuria; Unexplained weight loss; Chronic fatigue; Sleep arousal disorder Start: 04-15-2024 End: 04-15-2024 ambulatory JAYME PEREZ Not Available Start: 04-13-2024 End: 04-13-2024 Clinisync Result Encounter Jayme Perez MD Work Phone: [facility] Start: 04-13-2024 End: 04-13-2024 Clinisync Result Encounter Jayme Perez MD Work Phone: [facility]solic[facility] Start: 03-31-2024 End: 03-31-2024 Patient encounter procedure MD Jayme Perez Work Phone: [facility] [address] Work Phone: Start: 03-31-2024 End: 03-31-2024 ambulatory MD Jayme Perez Work Phone: [facility] Work Phone: Start: 12-31-2023 End: 12-31-2023 ambulatory FELICIA FARMER Not Available Start: 10-14-2023 End: 10-15-2023 ambulatory Williams Rubi SHEPHERD Facility:[facility] [place] Start: 10-14-2023 End: 10-14-2023 Patient encounter procedure Williams Rubi SHEPHERD [facility] [place] Start: 09-01-2023 End: 09-01-2023 ambulatory FELICIA FARMER Not Available Start: 08-20-2023 Clinisync Result Encounter Generic External Data Provider [facility]solic[facility] Start: 08-20-2023 Clinisync Result Encounter Generic External Data Provider [facility]olic[facility] Start: 08-14-2023 End: 08-15-2023 ambulatory Renato SANTACRUZ Facility:[id number] Start: 08-13-2023 End: 08-14-2023 ambulatory Renato SANTACRUZ Facility:[facility] [place] Start: 08-13-2023 End: 08-13-2023 Patient encounter procedure Renato SANTACRUZ [facility] Start: 08-07-2023 End: 08-07-2023 Office outpatient visit 25 minutes Jayme Perez MD Work Phone: [facility] Comment on above: Chronic diastolic he art failure (CMS/HCC) (Primary Dx); 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 (CMS/HCC); Type 2 diabetes mellitus with stage 3a chronic kidney disease, without long-term current use of insulin (HCC) (CMS/HCC); Stage 3a chronic kidney disease (HCC) (CMS/HCC); Microalbuminuria; Former smoker; 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, adult; 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; Psoriatic arthropathy (CMS/HCC); Gastroesophageal reflux disease without esophagitis Start: 08-07-2023 End: 08-07-2023 ambulatory JAYME PEREZ Not Available Start: 07-30-2023 End: 07-30-2023 ambulatory JAYME PEREZ Not Available Start: 07-25-2023 End: 07-25-2023 ambulatory Lou Glover Other [facility] Other Start: 07-25-2023 Office outpatient vi sit 25 minutes Lou Glover [facility] Start: 07-10-2023 End: 07-10-2023 ambulatory FELICIA D ZAHLER Not Available Start: 07-02-2023 End: 07-02-2023 ambulatory FELICIA D ZAHLER Not Available Start: 06-25-2023 End: 06-25-2023 ambulatory FELICIA D ZAHLER Not Available Start: 06-18-2023 End: 06-18-2023 ambulatory FELICIA D CORETTAHLER Not Available Start: 04-07-2023 End: 04-07-2023 Departed Referred MD Jayme Perez Work Phone: [facility] [place] Start: 04-07-2023 End: 04-08-2023 ambulatory MD Jayme Perez Work Phone: [facility] Work Phone: Start: 03-26-2023 End: 03-26-2023 Patient encounter procedure MD Jayme Perez Work Phone: [facility] Work Phone: Start: 03-20-2023 End: 03-21-2023 ambulatory Williams SHEPHERD Facility:[facility] Start: 03-20-2023 End: 03-20-2023 Lab Drop off Williams SHEPHERD [facility] Start: 03-20-2023 End: 03-20-2023 Patient encounter procedure Williams SHEPHERD [facility] [place] Start: 02-03-2023 End: 02-04-2023 ambulatory Williams SHEPHERD Facility:[facility] Start: 11-11-2022 End: 12-11-[address] JAYME PEREZ . Facility:[facility] Start: 10-25-2022 End: 10-26-[address] RADAMES MONTEIRO Facility:[facility] Start: 10-14-2022 End: 10-15-[address] JYAME PEREZ . Facility:[facility] Start: 09-24-2022 End: 09-25-2022 [...] 05-21-2021 End: 05-21-2021 ambulatory Astrid Baker Other [facility] Other Start: 05-21-2021 Office outpatient vi sit 15 minutes Astrid Baker [facility] Procedures Date Procedure Procedure Detail Performing Clinician Start: 04-22-2024 TBH CREATININE Jayme Perez MD Work Phone: Start: 04-16-2024 ALL CBC WITH AUTO DIFF Generic External Data Provider Start: 04-13-2024 SRM[facility] PROTHROMBIN T GERALD INR [...] External Data Provider Start: 08-14-2023 Lithotripsy Williams CHRISTIANSEN Start: 08-26-2019 Extracorporeal shock wave lithotripsy of [...] stent into ureter Williams SHEPHERD Abdominal hysterectomy Patri astrid SANTACRUZ Appendectomy Renatopower SANTACRUZ Extraction of cataract Patri astrid SANTACRUZ Partial lobectomy of lung Pa gamal SANTACRUZ Tonsillectomy Renato SANTACRUZ Plan of Treatment Date Care Activity Detail Author Start: 12-30-2025 Glaucoma screening Diabetes: R etinopathy Screening [facility] Start: 05-19-2025 Glaucoma screening Diabetes: R etinopathy Screening [facility] Start: 10-14-2024 End: 04-15-2025 T3, reverse T3, reverse Lab Routine Chronic fatigue Expected: 10/14/2024 (Approximate), Expires: 04/15/2025 [facility] Comment on above: Expected: 10/14/2024 (Approximate), Expires: 04/15/2025 Start: 10-14-2024 End: 04-15-2025 Thyrotropin [Units/volume] in Serum or Plasma TSH Lab Routine Chronic fatigue Expected: 10/14/2024 (Approximate), Expires: 04/15/2025 [facility] Comment on above: Expected: 10/14/2024 (Approximate), Expires: 04/15/2025 Start: 10-14-2024 End: 04-15-2025 Thyroxine (T4) free [Mass/volume] in Serum or Plasma T4, free Lab Routine Chronic fatigue Expected: 10/14/2024 (Approximate), Expires: 04/15/2025 [facility] Comment on above: Expected: 10/14/2024 (Approximate), Expires: 04/15/2025 Start: 10-14-2024 End: 04-15-2025 Triiodothyronine (T3) [Mass/volume] in Serum or Plasma T3 Lab Routine Chronic fatigue Expected: 10/14/2024 (Approximate), Expires: 04/15/2025 [facility] Work Phone: Comment on above: Expected: 10/14/2024 (Approximate), Expires: 04/15/2025 Start: 10-14-2024 End: 04-15-2025 Triiodothyronine (T3) Free [Mass/volume] in Serum or Plasma T3, free Lab Routine Chronic fatigue Expected: 10/14/2024 (Approximate), Expires: 04/15/2025 [facility] Comment on above: Expected: 10/14/2024 (Approximate), Expires: 04/15/2025 Start: 08-04-2024 End: 08-04-2024 Patient encounter procedure 08/04/2024 1:00 PM EST Office Visit [facility] [address] [place] [id number] Felicia Farmer, DO [address] [place] [address] [facility] Start: 07-12-2024 ambulatory Ambulatory Facility:[facility] Start: 05-22-2024 Medicare Annual Well ness (AWV) Medicare Annual Wellness (AWV) [facility] Start: 04-15-2024 End: 04-15-2024 Patient encounter procedure 04/15/2024 2:30 PM EDT Office Visit [facility] [address] [id number] Jayme Perez MD [address] [place] [address] (Fax) [facility] Start: 03-14-2024 Influenza vaccination Influenza Vacc ine (#1) [facility] Start: 10-26-2023 Urine screening for protein Diabetes: Urine Protein Screening [facility] Start: 09-01-2023 End: 09-01-2023 Patient encounter procedure 09/01/2023 10:30 AM EST Office Visit [facility] [address] [place] [id number] Felicia Farmer DO [address] [place] [address] [facility] Start: 05-06-2023 Hemoglobin A1c measurement Sharmin betes: Hemoglobin A1C [facility] Start: 04-07-2023 Abdomen endoscopy OR Cysto/Retro/Stent/Ston e/Holmium Laser (Right) [facility] Start: 03-14-2023 Influenza vaccination Influenza Vacc ine (#1) [facility] Start: 1951 Pneumococcal Vaccine : 65+ Years (1 - PCV) Pneumococcal Vaccine: 65+ Years (1 - PCV) [facility] Start: 1951 Pneumococcal Vaccine : 65+ Years (1 of 2 - PCV) Pneumococcal Vaccine: 65+ Years (1 of 2 - PCV) [facility] Immunizations Immunization Date Immunization Notes Care Provider Fa darek NEGATED: Highlighted row has not occurred!08-13-2023 influenza virus vaccine, unspecified formulation Renato SANTACRUZ [facility] NEGATED: Highlighted row has not occurred!08-13-2023 SARS-CoV-2 mRNA (tozinameran 5y-11y) vaccine Renato SANTACRUZ [facility] NEGATED: Highlighted row has not occurred!09-21-2019 influenza virus vaccine, live, attenuated, for intranasal use IDverge [facility] NEGATED: Highlighted row has not occurred!08-20-2019 influenza virus vaccine, live, attenuated, for intranasal use IDverge [facility] Payers Date Payer Category Payer Self-pay [id number] 2023 Private Health Insurance [employer] A ETNA SENIOR SUPPLEMENT [id number] 2023-Present [address] [address] [place] [address] Supplement [id number] 2022 Unknown [employer] [id number] 2022-Present [address] [address] [place] [address] [id number] 2022 Medicare [id number] 2002 Medicare MEDICARE MEDICAR E PART B [id number] 2002-[place] [address] Medicare [id number] 1959 Medicare [id number] [id number] 1959 Unknown [id number] 1946 Unknown [id number] 2.16.840.1.894636.3.579 .2.593 1946 Unknown [id number] 2.16.840.1.533106.3.579 .2.593 1946 Unknown [id number] 2.16.840.1.975619.3.579 .2.593 1946 Unknown [id number] 2.16.840.1.494322.3.579 .2.593 1946 Unknown [id number] 2.16.840.1.591403.3.579 .2.593 1946 Unknown [id number] 2.16.840.1.759253.3.579 .2.593 1946 Unknown [id number] 2.16.840.1.376360.3.579 .2.593 1946 Unknown [id number] 2.16.840.1.167642.3.579 .2.593 1946 Unknown [id number] 2.16.840.1.764794.3.579 .2.593 1946 Unknown [id number] 2.16.840.1.289742.3.579 .2.593 1946 Unknown [id number] 2.16.840.1.989578.3.579 .2.593 1946 Unknown [id number] 2.16.840.1.035530.3.579 .2.593 1946 Unknown [id number] 2.16.840.1.588960.3.579 .2.593 1946 Unknown [id number] 2.16.840.1.075196.3.579 .2.727 1946 Unknown [id number] 2.16.840.1.406429.3.579 .2.727 1946 Unknown [id number] 2.16.840.1.540707.3.579 .2.727 1946 Unknown [id number] 2.16.840.1.347087.3.579 .2.72 1946 Unknown [id number] 2.16.840.1.889567.3.579 .2.727 1946 Unknown [id number] 2.16.840.1.276354.3.579 .2.727 1946 Unknown [id number] 2.16.840.1.940642.3.579 .2.727 1946 Unknown [id number] 2.16.840.1.937538.3.579 .2.125 1946 Unknown [id number] 2.16.840.1.654762.3.579 .2.125 1946 Unknown [id number] 2.16.840.1.400966.3.579 .2.125 1946 Unknown [id number] 2.16.840.1.486238.3.579 .2.125 1946 Unknown [id number] 2.16.840.1.055251.3.579 .2.125 1946 Unknown [id number] 2.16.840.1.232501.3.579 .2.125 1946 Unknown [id number] 2.16.840.1.781491.3.579 .2.125 1946 Unknown [id number] 2.16.840.1.231312.3.579 .2.1259 1946 Unknown [id number] 2.16.840.1.943286.3.579 .2.125 Unknown [id number] 2.16.840.1.743791.3.579 .2.531 Social History Date Type Detail Facility Sex Assigned At [facility] Other Start: 02-03-2023 End: 04-15-2024 Tobacco smoking status Ex-smoker (finding) [facility] Tobacco smoking status Never [facility] Start: 12-11-2022 End: 04-08-2024 Sex Assigned At Female [facility] Start: 1945 Sex Assigned At Female [facility] End: 07-14-1986 History of tobacco use Current smoker [facility] End: 07-14-1986 History of tobacco use Cigarette Smoker [facility] Start: 08-07-2023 End: 04-15-2024 Tobacco use and exposure Smokeless tobacco non-user [facility] Start: 08-07-2023 End: 04-15-2024 Alcohol intake Ex-drinker (finding) [facility] Start: 12-11-2022 End: 04-08-2024 History of Social function [facility] Within [...] Identifies as female gender (finding) [facility] Do you feel stress - tense, restless, nervous, or anxious, or unable to sleep at night because your mind is troubled all the time - these days [OSQ] Not at all [facility] Functional Status Date Assessment Result Facility 10-14-2023 Functional Status N/A [facility] 08-13-2023 Functional Status N/A [facility] Clinical Notes 02-21-2022 to 04-15-2024 Jayme Perez MD - 04/15/2024 2:30 PM Suad Perez MD - 08/07/2023 10:00 AM EST Note Date & Type Note Facility 04-15-2024 History of Present illness Narrative Images from the original note were not included. Patient ID: Wilda Sen is a 79 y.o. female who presents for: Arrhythmia Patient who presents for follow-up of atrial fibrillation. Symptoms include palpitations. Onset was several years ago, and have been gradually worsening since that time. The patient denies fatigue. Diabetes Mellitus Patient presents for follow up of diabetes. Current symptoms include: none. Symptoms have stabilized. Patient denies increased appetite, paresthesia of the feet, and visual disturbances. Evaluation to date has [...] is no supraclavicular lymphadenopathy. The heart is actually fairly regular rate and rhythm without S3, S4. No murmur. The patient has normal respiratory pattern. The breath sounds are diffusely decreased but symmetrical without evidence of rhonchi or rales. No wheezing. The skin is warm and dry. No jaundice The lower extremities have trace edema. Neurologic screening exam is nonfocal. The patient is alert. There is no overt gross evidence of cognitive impairment The patient has good eye contact and speech is clear. Appropriate affect. Visit Vitals BP 120/70 Pulse 87 Ht 5' 3 Wt 123 lb SpO2 98% BMI 21.79 kg/m OB Status Postmenopausal Smoking Status Former BSA 1.57 m 07/30/2023 08/07/2023 04/15/2024 Vitals SpO2 96 % 98 % 98 % Height (in) 5' 3 5' 3 5' 3 Weight (lb) 138 138 123 Component Ref Range & Units 6 d ago 8 mo ago GLYCOHEMOGLOBIN A1C 4.5 - 6.2 % 6.3 High 7.2 High CM Allergies Allergen Reactions Hydrocodone Bit-Homatrop Mbr Dizziness Ketorolac Nausea Only Other Reaction(s): Unknown Severe Latex Other Reaction(s): Blister Medical Adhesive Remover Other Reaction(s): facial edema, redness/metrogel Metronidazole Other Reaction(s): facial edema, redness/metrogel Pioglitazone Other Reaction(s): Unknown, Vomiting Sulfa Antibiotics Other Reaction(s): rash swelling Ciprofloxacin Other Reaction(s): bennett, Unknown Nsaids Other Reaction(s): Abdominal Pain, Unknown Current Outpatient Medications on File Prior to Visit Medication Sig Dispense Refill acarbose (Precose) 100 MG tablet Take 1 tablet (100 mg) by mouth in the morning and 1 tablet (100 mg) at noon and 1 tablet (100 mg) in the evening. Take with meals. 270 tablet 1 acetaminophen (Tylenol) 325 MG tablet Take 325 mg by mouth every 6 (six) hours if needed. 2 tables as needed orally every 6 hours albuterol HFA 90 mcg/act inhaler Inhale 2 puffs in the morning and 2 puffs at noon and 2 puffs in the evening and 2 puffs before bedtime. 18 g 0 calcium citrate 1040 MG tablet Take 250 mg by mouth in the morning and 250 mg in the evening and 250 mg before bedtime. 1 tablet orally three times a day. cinnamon 500 MG capsule Take 500 mg by mouth in the morning and 500 mg before bedtime. 1 capsule orally twice a day. Cyanocobalamin (Vitamin B12) [address] 3,000 mcg under the tongue 1 (one) time each day. esomeprazole (NexIUM) [address] capsule Take 20 mg by mouth 1 (one) time each day. 1 capsule orally once a day Spacer/Aero-Holding Chambers (BreatheRite Leonor Spacer Adult) misc 2 puffs 4 (four) times a day as needed (sob and cough) 1 each 0 tamsulosin (Flomax) 0.4 MG 24 hr capsule Take 0.4 mg by mouth in the morning. warfarin (Coumadin) 1 MG tablet Take 1 tablet in the evening for a total of 5mg 90 tablet 1 warfarin (Coumadin) 4 MG tablet Take 1 tablet in the evening for a total of 5mg 90 tablet 1 [DISCONTINUED] cephalexin (Keflex) 500 MG capsule Take 500 mg by mouth in the morning and 500 mg in the evening and 500 mg before bedtime. [DISCONTINUED] ondansetron ODT (Zofran-ODT) 4 MG disintegrating tablet Take 4 mg by mouth every 8 (eight) hours if needed for nausea [DISCONTINUED] oxyCODONE-acetaminophen (Percocet) 5-325 MG tablet Take 1 tablet by mouth every 6 (six) hours if needed metFORMIN (Glucophage) 1000 MG tablet Take 1 tablet (1,000 mg) by mouth in the morning and 1 tablet (1,000 mg) in the evening. Take with meals. 180 tablet 1 No current facility-administered medications on file prior to visit. 1. 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 (CMS/HCC) Chronic problem, stable, comanaged with Cardiology. Asymptomatic. 2. detention current use of anticoagulant Chronic problem, stable, monitored monthly and longitudinally 1 can see the phone notes related to this. We have previously fill her warfarin. 3. Type 2 diabetes mellitus with stage 3a chronic kidney disease, without long-term current use of insulin (HCC) (CMS/HCC) Chronic problem, stable, to goal. In prescribing a renewal to their current medication, consideration of the following encompasses moderate decision making; the current prescriptions and supplements, the current allergies and medication intolerances, current medical conditions, and potential drug interactions. Any changes to risks, benefits, and reason for renewing their current medication due to the above were discussed. The patient was given a chance to ask questions today and all questions were answered. The patient is to contact us if any other questions arise or if any problems occur. (Utilizing the original guidelines or the 2020 office/outpatient code guidelines for selecting the level of E/M service, In both sets of guidelines, prescription drug management appears in the moderate medical decision making (MDM) row. Neither the original guidelines nor the new guidelines state that a new prescription or change is needed in order to credit prescription drug management) - acarbose (Precose) 100 MG tablet; Take 1 tablet (100 mg) by mouth in the morning and 1 tablet (100 mg) at noon and 1 tablet (100 mg) in the evening. Take with meals. Dispense: 270 tablet; Refill: 1 - metFORMIN (Glucophage) 1000 MG tablet; Take 1 tablet (1,000 mg) by mouth in the morning and 1 tablet (1,000 mg) in the evening. Take with meals. Dispense: 180 tablet; Refill: 1 4. Stage 3a chronic kidney disease (HCC) (CMS/HCC) Chronic problem, historically stable. Continue to monitor longitudinally. 5. Microalbuminuria Chronic problem, defining an aspect the nephropathy, with significant risk, uncertain progression requiring longitudinal monitoring, and moderate decision making. Microalbuminuria describes a moderate increase in the level of urine albumin. Normally, the kidneys filter albumin, so if the kidney leaks small amounts of albumin into the urine then it is a indicator of chronic kidney disease. Microalbuminuria is an independent indicator of increased cardiovascular risk among individuals and therefore can be used for risk stratification for cardiovascular disease. 6. Unexplained weight loss Acute problem She has lost a proximally 15 lb since the end of July. She is not intentionally doing this. She does describe some early satiety. Nothing on physical exam to explain. We have mutually agreed to starting with some laboratory evaluation. If we can not find a reason with laboratory evaluation I would suspect she is going to need diagnostic imaging. With her multiple risk factors including previous cancers, former smoker, intermittent current marijuana smoking, in immunosuppression from medications, we will probably need to do lung abdomen and pelvis. 7. Chronic fatigue Chronic problem, unstable And worsening, complex in nature with moderate decision making. I discussed with the patient or their phlebotomy services representative, their fatigue issues. We discussed how this is either not improved or not inadequately addressed. We discussed how this is almost always a multifactorial problem. We discussed that the patient will almost certainly need to continue to make lifestyle changes including diet, sleep, exercise, and stress management as appropriate. We further discussed how we will continue to search for refinements in their current treatments or evaluation for further disease processes and then support or treat them as appropriate. We discussed how we can frequently improve the symptoms, but may not be able to completely cure or resolve the issue. The patient was given a chance to ask questions and all questions were answered. - T3; Future - T3, reverse; Future - T3, free; Future - T4, free; Future - TSH; Future - T3 - T3, reverse - T3, free - T4, free - TSH 8. Sleep arousal disorder Chronic problem, stable with her medication. - traZODone (Desyrel) 50 MG tablet; Titrate nightly from 1/2 tablet up to 2 tablets by 1/2 tablet increments as tolerated Dispense: 60 tablet; Refill: 0 documented in this encounter [facility] 10-14-2023 Hospital Discharge instructions Patient Education 10/14/2023 [...] include: ?8 oz (237 mL) of milk, ngpnquz-vmyittxlhzdr-jjvxf milk, and calcium-fortifiedfruit juice. Calcium-fortified means that [...] ?Spinach (cooked), rhubarb, beets, sweet potatoes, and [place] chard. ?Peanuts. ?Potato chips, romansh fries, and baked potatoes with skin on. ?Nuts and nut products. ?Chocolate. If you regularly take a diuretic medicine, make sure to eat at least 1 or 2 servings of fruits or vegetables that are high in potassium each day. These include: ?Avocado. ?Banana. ?[place], prune, carrot, or tomato juice. ?Baked potato. [...] magnesium, fish oil, or vitamin B6. Take lfmb-mgh-zywlovv and prescription medicines only as told by [...] Casseroles. Pizza. Lasagna. Frozen meals. Potato chips. [place] Islander fries. The items listed above may not [...] provider. Document Revised: 10/10/2022 Document Reviewed: 10/10/2022 [employer] Patient Education 2022 Kites. Follow Up Care 08/13/2023 10:19:44 With:CORA AGUIAR, Williams Venegas, URL Address: [address] [place], [place] [id number]- When: Unknown [facility] 08-13-2023 Hospital Discharge instructions Patient Education 08/13/2023 [...] including vitamins, herbs, eye drops, creams, and xgia-dfh-fedazwb medicines. Any problems you or family members [...] provider tells you to take them. ?Taking txua-fpr-tglzqmp medicines, vitamins, herbs, and supplements. Eating and [...] provider. Document Revised: 11/06/2022 Document Reviewed: 03/04/2022 [employer] Patient Education 2022 Kites. Follow Up Care 08/12/2023 14:37:00 With:ANGELITO AGUIAR, Renato Arzola, URL Address: [facility] [address], [place] [phone] [phone] When: Unknown Comments:sched ureteroscopyf/u w/ [facility] scheduled 10/14/23 [facility] 08-07-2023 History of Present illness Narrative [...] 36.1 (H) 9.0 - 11.6 sec Final TB INR 08/05/2023 3.67 Final Comment: DESIRED INR: [...] 0.55 - 1.02 mg/dL Final [facility] EGFR-AF BULGARIAN 07/22/2023 >60 >=60 Final TBH EGFR-NON AF BULGARIAN 07/22/2023 55 (L) >=60 Final BUN CREATININE [...] cardiovascular disease. Former smoker 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, adult detention current use of anticoagulant Chronic problem, that is monitored monthly, and be seen in the monthly INR results. documented in this encounter [facility] 07-25-2023 Evaluation note Encounter Date Diagnosis [...] care as directed rx of steroid and Hoyt, cool mist humidification. May use Tylenol as directed. Immediate eval for signs of respiratory distress, difficulty breathing poor PO intake, signs of dehydration, fever, or other concerning symptoms. Otherwise, follow up with PCP in 2-3 days. Patient verbalizes understanding and is agreeable to treatment plan. Patient sent home in stable condition. [employer] Other 08-11-2022 NotePROCEDURE: XR FOOT LT MIN 3 VIEWS COMPARISON: None. HISTORY: Pain in left foot FINDINGS: BONES:No acute fracture or dislocation. Mild enthesopathic spurring of the calcaneus. SOFT TISSUES:Negative. No visible soft tissue swelling. EFFUSION:None visible. OTHER: Negative. IMPRESSION: Mild enthesopathic spurring of the calcaneus Electronically authenticated by: BLANCA ZAVALA Date: 2022-02-21 07:28[facility] [place] [facility] Future Appointments Appointment Date:07/12/2024 10:45:00 AM Scheduled Provider:Williams SHEPHERD MD Location:[facility] Appointment Type:URO Office Visit [facility] Evaluation + Plan note Future Appointments Appointment Date:07/12/2024 10:45:00 AM Scheduled Provider:Williams SHEPHERD MD Location:[facility] Appointment Type:URO Office Visit Diagnostic Tests Pending * Calculi Analysis [facility] Future App[facility]ments Appointment Date:10/14/2023 09:15:00 AM Scheduled Provider:Williams SHEPHERD MD Location:[facility] [place] Appointment Type:URO Office Visit Appointment Date:07/12/2024 10:45:00 AM Scheduled Provider:Williams SHEPHERD MD Location:[facility] Appointment Type:URO Office Visit [facility] evaluation noteNort Maven7 Other evaluation noteNo assessment information available [facility] Work Phone: evaluation note* Diagnosis Chronic diastolic heart failure (CMS/HCC)- Primary Chronic diastolic heart failure 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 (CMS/HCC) Atrial fibrillation Type 2 diabetes mellitus with stage 3a chronic kidney disease, without long-term current use of insulin (HCC) ([facility]/HCC) Stage 3a chronic kidney disease (HCC) (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 Type 2 diabetes mellitus with stage 3a chronic kidney disease, without long-term current use of insulin (HCC) (CMS/HCC) Stage 3a chronic kidney disease (HCC) (CMS/HCC) Microalbuminuria Proteinuria Unexplained weight loss Loss of weight Chronic fatigue Other malaise and fatigue Sleep arousal disorder documented [facility] - [facility] [place] Other History general Narrative - Reported* Type Description Date Medical History Arthritis Medical History diabetes mallitus Surgical History cataract surgery [facility] [place] Other Hospital course Narrative No data available for this section [facility] Discharge instructions No data available for this section [facility] Progress note No data available for this section [facility] Summary Purpose Family History Relationship Condition Age [...] and content) DATE CREATED AUTHOR 12/20/2022 [facility] DATE CREATED AUTHOR AUTHOR'S ORGANIZ ATION 10/15/2023 [facility] DATE CREATED AUTHOR AUTHOR'S ORGANIZ ATION 04/10/2024 [facility] DATE CREATED AUTHOR AUTHOR'S ORGANIZ ATION 04/17/2024 [facility] EPIC Patient Care team informatio n (unrecognized section and content) Team Status: Active Member Role Status Dates Jayme Perez MD Primary Care Provider Active Team Status: Inactive Member Role Status Dates Jayme Perez MD Primary Care Provider Active Williams Shepherd MD Attending Provider Active Brick Shader Relationship Specialty Start Date End Date Jayme Perez MD [address] [place] [address] PCP - General Family Medicine 11/25/22 Jayme Perez MD [address] [place] [address] (Fax) PCP - ACO Reach 12/05/22 Brick Shader Relationship Specialty Start Date End Date Jayme Perez MD [address] [phone] (Fax) PCP - General Family Medicine 11/25/22 Jayme Perez MD [address] [phone] (Fax) PCP - ACO Reach 12/05/22 Team Status: Inactive Member Role Status Dates Jayme Perez MD Primary Care Provider Active Start: March 31, 2024 End: March 31, 2024 Radames Monteiro MD Attending Provider Active St art: March 31, 2024 End: March 31, 2024 Brick Shader Relationship Specialty Start Date End Date Jayme Perez MD [address] [place] [address] (Fax) PCP - General Family Medicine 11/25/22 Jayme Perez MD [address] [phone] (Fax) PCP - ACO Reach 12/05/22 Felicia Farmer DO [address] [place] [address] Referring Physician Ophthalmology 08/21/23 Renato Santacruz MD [address] [phone] Referring Physician Urology 08/21/23 Radames Monteiro MD [address] [place] [phone] Referring Physician Rheumatology 08/21/23 Brick Shader Relationship Specialty Start Date End Date Jayme Perez MD [address] [phone] (Fax) PCP - General Family Medicine 11/25/22 Jayme Perez MD [address] [phone] (Fax) PCP - ACO Reach 12/05/22 Felicia Farmer DO [address] [place] [phone] Referring Physician Ophthalmology 08/21/23 Renato Santacruz MD [address] [place] [address] Referring Physician Urology 08/21/23 Radames oMnteiro MD [address] [facility] [address] [place] [phone] Referring Physician Rheumatology 08/21/23 Brick Shader Relationship Specialty Start Date End Date Jayme Perez MD [address] [place] [address] (Fax) PCP - General Family Medicine 11/25/22 Jayme Perez MD [address] [place] [address] (Fax) PCP - ACO Reach 12/05/22 Felicia Farmer DO [address] [place] [address] Referring Physician Ophthalmology 08/21/23 Renato Santacruz MD [address] [place], [place] [phone] Referring Physician Urology 08/21/23 Radames Monteiro MD [address] [facility] Professional building [address] [place] [phone] Referring Physician Rheumatology 08/21/23 Goals (unrecognized section and content) Goals may be documented in a n alternate section REASON FOR VISIT (unrecogniz ed section and content) Reason Comments Hyperlipidemia Diabetes Reason Comments Atrial Fibrillation Diabetes FOR RECORDS PERTAINING TO PATIENTS WHO [...] BE BASED ON THE PRIMARY CLINICAL RECORDS. [facility] [employer] [facility]. provides no warranty or guarantee of the accuracy or completeness of information in this document.
== END 2024-05-14 08:48 | disposition home or self-care (01) ==
LOC: CT 08:47
PROVIDERS: PCP Family Medicine; Visit Provider Family Medicine
DX: R63.4 Abnormal weight loss (principal); Z85.820 Personal history of malignant melanoma of skin; Z98.890 Other specified postprocedural states; Z90.2 Acquired absence of lung [part of]; Z87.891 Personal history of nicotine dependence; D84.9 Immunodeficiency, unspecified; I25.10 Atherosclerotic heart disease of native coronary artery without angina pectoris
CPT/HCPCS: 71260; Q9967

== ENCOUNTER 2024-05-14 09:36 | Outpatient (OUT) | payer MEDICARE, SELFPAY ==
--- OUTSIDE RECORDS SUMMARY | 2024-05-14 09:56 | XMS_ITS | CCD ---
Author Organization [facility] Care Team Providers Care Insurance Solicitor Name Role Phone Astrid Baker Unavailable CAYETANO, [...] Care Provider MD Williams Shepherd Attending Provider [phone] Lou Glover Unavailable Jayme Perez MD Primary Care Provider Jayme Perez MD Unavailable [phone] Renato SANTACRUZ Attending Unavailable Williams SHEPHERD Attending Unavailable Williams SHEPHERD Attending Unavailable Williams SHEPHERD Admitting Unavailable Williams SHEPHERD Attending Unavailable Renato SANTACRUZ Attending Unavailable Williams SHEPHERD Attending Unavailable Williams SHEPHERD Attending Unavailable Williams SHEPHERD Attending Unavailable MD Jayme Perez Primary Care Provider MD Radames Monteiro Attending Provider Radames Monteiro [...] anaphylaxis, Unknown (qualifier value) [facility] (1 source) sulfaSALAzine Drug Allergy rash [facility] Other (1 source) Ciprofloxacin Drug Allergy 03-30-20 13 [facility] Repository (2 sources) Ketorolac; Translations: [Toradol] Drug Allergy 03-30-20 13 [facility] Repository (2 sources) metroNIDAZOLE; Translations: [MetroGel] Drug Allergy 03-30-20 13 [facility] Repository (1 source) NSAIDs Drug allergy (disorder) 03-30-20 13 [facility] Repository (2 sources) pioglitazone; Translations: [Actos] Drug Allergy 03-30-20 13 [facility] Repository (1 source) Sulfonamides (Antibiotic) Drug allergy (disorder) 03-30-20 13 [facility] Repository (11 sources) Ketorolac; Translations: [ketorolac] Drug Allergy 03-26-20 23 Unknown (qualifier value), Nausea (finding) [facility] Comment on above: Severe (16 sources) Latex; Translations: [Latex] Drug allergy 01-07-20 23 Blister of skin AND/OR mucosa (finding) [facility] (13 sources) Non-steroidal anti-inflammatory agent; Translations: [NSAIDs] Drug allergy 02-19-20 22 Unknown (qualifier value) [facility] (17 sources) pioglitazone; Translations: [pioglitazone] Drug Allergy 01-07-20 23 Unknown (qualifier value) [facility] (5 sources) Sulfonamides (Antibiotic); Translations: [sulfa drugs] Drug allergy Unknown (qualifier value) [facility] (13 sources) metroNIDAZOLE; Translations: [Metronidazole] Drug Allergy 02-19-[address] [facility] (3 sources) Sulfonamides (Antibiotic); Translations: [Sulfa (Sulfonamide Antibiotics)] Allergy to substance 03-26-20 [facility] (3 sources) NSAIDS (Non-Steroidal Anti-Inflamma; Translations: [NSAIDS (Non-Steroidal Anti-Inflamma] Allergy to substance 03-26-20 Anaphylaxis, Anaphylaxis, rash [facility] (1 source) Non-steroidal anti-inflammatory agent Drug allergy [facility] Other (9 sources) Substance with sulfonamide structure and antibacterial mechanism of action (substance) Drug allergy 02-19-20 [facility] Other (8 sources) Ketorolac Allergy to substance 01-07-20 Nausea Only [facility] (8 sources) Hydrocodone Bit-Homatrop Mbr Propensity to adverse reactions 08-07-19 Dizziness [facility] (8 sources) Medical Adhesive Remover Drug Allergy 02-19-20 [facility] (1 source) Ciprofloxacin Drug Allergy 07-25-19 [facility] Repository (1 source) Ketorolac Drug Allergy 03-26-20 [facility] Repository (1 source) pioglitazone Drug Allergy 03-26-20 [facility] Repository Medications Current Medications Medication Drug Class(es) Dates Sig (Normalized) Sig (Original) acarbose 100 mg oral tablet (20 sources) alpha-Glucosidase Inhibitor Start: 08-17-2019 End: 10-12-2024 acarbose (Precose) 100 MG tablet Indications: Type 2 diabetes mellitus with stage 3a chronic kidney disease, without long-term current use of insulin (HCC) ([facility]/HCC) Take 1 tablet (100 mg) [...] as needed orally every 6 hours Active [id number] 200 actuat albuterol 0.09 mg/actuat metered dose [...] Date: 09/19/20 Status: Ordered Cyanocobalamin-Liver Extract (Vitamin J36-Epcrh) Tablet (2 sources) Start: 03-26-2023 take 1 tablet by mouth once daily Cyanocobalamin-Liver Extract (Vitamin F42-Pzgjm) Tablet Active 1 TAB PO every day at March 26, 2023 12:00am Start: 03-26-2023 take 1 tablet by valdo th once daily Cyanocobalamin-Liver Extract (Vitamin Z80-Genjn) Tablet Active 1 TAB PO every day at March 25, 2023 11:00pm dextromethorphan hydrobromide 1.5 mg/ml / pyrilamine maleate 1.5 mg/ml oral solution (1 source) Uncompetitive K-qnzoec-I-aspartate Receptor Antagonist, Sigma-1 Agonist Start: 07-25-2023 take 10 mL by mouth every eight hours Conrad DM 7.5-7.5 MG/5ML 10 mL Orally every [...] Ordered take 1 capsule by [facility] once daily esomeprazole (NexIUM) [address] [...] Spacer/Aero-Ho lding Chambers (BreatheRite Leonor Spacer Adult) [facility] Indications: Chronic obstructive pulmonary disease with acute exacerbation (CMS/HCC) 2 puffs 4 (four) times a day as needed (sob and cough) 1 each 07/16/2023 Active Start: 07-16-2023 Spacer/Aero-Ho lding Chambers (BreatheRite Leonor Spacer Adult) [facility] Indications: Chronic obstructive pulmonary disease with acute [...] Ordered Start: 08-12-2023 take 1 capsule by [facility] every twenty-four hours in the morning tamsulosin [...] 12-12-2022 12-12-2022 Chronic Other aftercare (1 source) technician terminal and repeater (current) use of anticoagulants; Translations: [EARTH AUGER OPERATOR CURRNT USE ANTICOAGULANTS] Onset: 12-11-2022 Episodic Other aftercare (5 sources) Encounter for therapeutic drug level monitoring; Translations: [ENC THERAPEUTC DRUG LEVL MONITORING] Onset: 10-18-2022 Episodic Other aftercare (1 source) Other oil heaterman (current) drug therapy; Translations: [OTH EARTH AUGER OPERATOR CURRENT DRUG THERAPY] Onset: 10-31-2022 Episodic [...] 12-12-2022 12-12-2022 Episodic Other aftercare (1 source) FDC (current) use of oral hypoglycemic drugs; Translations: [LONG-TERM USE ORAL HYPOGLYCEMIC DX] Onset: 08-12-2022 Episodic Other aftercare (1 source) technician terminal and repeater (current) use of insulin; Translations: [LONG-TERM CURRENT USE OF INSULIN] Onset: 02-13-2022 Episodic Other aftercare (14 sources) Long-term current use of anticoagulant; Translations: [FDC (current) use of anticoagulants] Onset: 07-21-2023 Episodic [...] Test Name Value Interpretation Reference Range Facil [facility] CREATININEon 04-22-2024 Creatinine [Mass/Vol] 0.84 mg/dL 0.55 - 1.02 mg/dL [facility] GFR/1.73 sq M.predicted CKD-EPI (S/P/Bld) [Vol rate/Area] >60 >=60 mL/min/1.73m 2 [facility] EGFR-NON AF KENYAN >60 >=60 mL/min/1.73m 2 [facility] ALL CBC WITH AUTO DIFFon BASOPHILS ABSOLUTE AUTO 0.0 [facility] Basophils/100 WBC (Bld) 0.6 % 0.2 - 2.0 % [facility] Eosinophils/100 WBC (Bld) 2.1 % 0.9 - 7.0 % [facility] Erythrocyte distribution width (RBC) [Ratio] 14.1 % 11.0 - 15.0 % [facility] Hematocrit (Bld) [Volume fraction] 41.8 % 36.0 - 48.0 % [facility] Hemoglobin (Bld) [Mass/Vol] 13.5 g/dL 12.0 - 16.0 g/dL [facility] IMMATURE GRANULOCYTES ABS AUTO 0.02 [facility] Immature granulocytes/100 WBC (Bld) 0.3 % 0.0 - 0.5 % [facility] Interpretation and review of laboratory results Abnormal [facility] LYMPHOCYTES ABSOLUTE AUTO 2.1 [facility] Lymphocytes/100 WBC (Bld) 32.2 % 20.5 - 60.0 % [facility] MCH (RBC) [Entitic mass] 31.0 pg 26.7 - 34.0 pg [facility] MCHC (RBC) [Mass/Vol] 32.3 g/dL 29.9 - 35.2 g/dL [facility] MCV (RBC) [Entitic vol] 95.9 fL 81.0 - 99.0 fL [facility] MONOCYTES ABSOLUTE AUTO 0.5 [facility] Monocytes/100 WBC (Bld) 6.8 % 1.7 - 12.0 % [facility] NEUTROPHILS ABSOLUTE AUTO 3.8 [facility] Neutrophils/100 WBC (Bld) 58.0 % 43.0 - 75.0 % [facility] Platelet mean volume (Bld) [Entitic vol] 8.6 fL Low 9.5 - 13.5 fL [facility] TBH EO # 0.1 [facility] PLT 316 [facility] RBC 4.36 [facility] WBC 6.6 [facility] SRMCOH PROTHROMBIN TIME INR W/O COUMon 04-13-2024 Interpretation and review of laboratory results Abnormal [facility] PT Coag (PPP) [Time] 27.7 s High [facility] INR 2.90 [facility] Comment on above: DESIRED INR: 2.0-3.0 CONDITIONS NOT LISTED BELOW 2.5-3.5 FOR PROSTHETIC HEART VALVE REPLACEMENT 2.5-3.5 [facility] Magn[facility] [Mass/volume] in S fartun or PlasmaOrdered By: Radames Monteiro on 03-31-2024 Magnesium [Mass/Vol] 1.9 mg/dL Normal 1.9-2.7 [facility] Comment on above: Result Comment: PERF ORMED BY: [place] [address] PATHOLOGIST CORN GROWER BERNIE GRAYSON M.D. Performed By: #### M G, PHOS #### [address] Phosphate [Mass/volume] in S fartun or PlasmaOrdered By: Radames Monteiro on 03-31-2024 Phosphate [Mass/Vol] 3.7 mg/dL Normal 2.5-4.5 [facility] Comment on above: Performed By: #### M VALENTINA Alcantara #### [facility] [id number] [facility] Ambulatory Visit Summaryon 0 10-14-2023 Ambulatory [...] Williams SHEPHERD MD Where: [facility] Patient Educationon 10-14-19 Patient Education Nephrology [...] Spinach (cooked), rhubarb, beets, sweet potatoes, and Trinidadian chard. ? Peanuts. ? Potato chips, serbian fries, and baked potatoes with skin on. ? Nuts and nut products. ? Chocolate. ? If you regularly take a diuretic medicine, make sure to eat at least 1 or 2 servings of fruits or vegetables that are high in potassium each day. These include: ? Avocado. ? Banana. ? Chisago, prune, carrot, or tomato juice. ? Baked [...] fish oil, or vitamin B6. ? Take ifet-lmy-xljbqkd and prescription medicines only as told by your health care provider. These include supplements. What foods sh (more content not included)... Normal [facility] Urology Office/Clinic Noteon 10-14-2023 Urology Office/Clinic Note Chief Complaint Pt is here for 3 month w/ met w/u & KUB HPI Staff 6 month follow up w/KUB Pt canceled Cysto/R retro/possible: ureteroscopy, laser, basket, stent placement 04/07/23 due to passing stones Pt was then seen at [facility] on 08/12/23 due to abdominal [...] with voice recognition artificial intelligence software, specifically [employer]BV and or [employer]. Substitutions may have occurred due to the inherent limitations of voice recognition and artificial intelligence software. 1. Ureteral stone with hydronephrosis (N13.2: Hydronephrosis with renal and ureteral calculous obstruction) [facility] ER visit 08/12/23 due to [...] bilateral nephrolithiasis. -See #1 3. Anticoagulated (Z79.01: FDC (current) use of anticoagulants) Warfarin for A-fib. [...] Information CORA AGUIAR, Williams Venegas, URL [address] [address]- Additional Instructions: 06/2024 with [facility] Patient Education Dietary Guidelines to Help Prevent Kidney Stones I, Charisse Rutherford, personally scribed for Dr. Shepherd on 10/14/2023 09:33:56. Electronically signed by (more content not included)... [facility] Comment on above: Result Comment: Elec tronically Signed By: Williams SHEPHERD MD\.br\Date and Time Signed: 10/14/23 09:38 EDT\.br\Electronically Co-Signed By: Charisse Rutherford.br\Date and Time Co-Signed: 10/14/23 09:34 EDT RAD - MISCon 10-10-2023 RAD - MISC [id number]#1 .00TIFF [facility] Lab Reportson 08-27-2023 Lab Reports [id number]#1 .00TIFF [facility] Report[facility] 08-25-2023 Lab Reports [id number]#1 .00TIFF [facility] Lab Reports [id number]#1 .00TIFF [facility] Lab Reportson 08-22-2023 Lab Reports [id number]#1 .00TIFF [facility] Lab Reportson 08-21-2023 Lab Reports [id number]#1 .00TIFF [facility] Lab Reports [id number]#1 .00TIFF [facility] ALL BUNon 08-20-2023 Urea nitrogen [Mass/Vol] 12.0 mg/dL 7.0 - 18.0 mg/dL [facility] ALL CARBON DIOXIDEon 024 CO2 [Moles/Vol] 30.1 mmol/L 21.0 - 32.0 mmol/L [facility] ALL CHLORIDEon 08-20-2023 Chloride [Moles/Vol] 104 mmol/L 98 - 107 mmol/L [facility] ALL PHOSPHOROUSon 08-20-2023 Phosphate [Mass/Vol] 4.1 mg/dL 2.6 - 4.7 mg/dL [facility] ALL SODIUMon 08-20-2023 Sodium [Moles/Vol] 141 mmol/L 136 - 145 mmol/L [facility] ALL URIC ACIDon 08-20-2023 Urate [Mass/Vol] 4.4 mg/dL 2.6 - 6.0 mg/dL [facility] CALCIUMon 08-20-2023 Calcium [Mass/Vol] 9.1 mg/dL 8.5 - 10.1 mg/dL [facility] No Panel Informationon 08-20 [facility] CREATININEon 08-20-2023 Creatinine [Mass/Vol] 0.86 mg/dL 0.55 - 1.02 mg/dL [facility] GFR/1.73 sq M.predicted CKD-EPI (S/P/Bld) [Vol rate/Area] >60 60 - PINF [facility] EGFR-NON AF KENYAN >60 60 - PINF [facility] Consent for Procedure/Surger yon 08-15-2023 Consent for Procedure/Surgery [id number]#1 .00TIFF Normal [facility] ED Note-Physicianon 08-15-19 ED Note-Physician [id number]#1. 00TIFF Normal [facility] Lab Reportson 08-15-2023 Lab Reports [id number]#1. 00TIFF Normal [facility] Lab Reports [id number]#1 .00TIFF Normal [facility] Lab Reports [id number] 2 [id number]#1 .00TIFF Normal [facility] Operative Reporton Operative Report [id number]#1 .00TIFF Normal [facility] RAD - CT Reporton 08-15-2023 RAD - CT Report [id number]#1. 00TIFF [facility] Ambulatory Visit Summaryon 0 08-13-2023 [...] [facility] Normal [address] [address]- \.br\ You Need to Schedule the Following Appointments\.br \ Follow Up with ANGELITO AGUIAR, Renato Arzola, URL When: \.br\ Comments:\.br\ sched ureteroscopy\.br \ f/u w/ [facility] scheduled 10/14/23\.br\ Where:\.br\ [facility] [address]br\ [place] [address]-\.br\ [phone]\.br\ Medications\.br\ What How Much When Instructions\.br \ [...] murmur\.br\ History of uterine cancer\.br\ Hx of oil heaterman use of blood thinners\.br\ Kidney stones\.br\ Nocturia\.br\ [...] including vitamins, herbs, eye drops, creams, and wzhs-fmu-rdiqxjf medicines.\.br\ ? \.br\ Any problems you or [...] you to take them.\.br\ ? \.br\ Taking akhv-lcb-dwdxgxd medicines, vitamins, herbs, and supplements.\.br \ Eating [...] including vitamins, herbs, eye drops, creams, and xasb-yuc-dricnej medicines. ? Any problems you or family [...] tells you to take them. ? Taking nlht-rqd-upvmphx medicines, vitamins, herbs, and supplements. Eating and [...] the pieces (more content not included)... Normal [facility] Urology Office/Clinic Noteon 08-13-2023 Urology Office/Clinic Note Chief Complaint Patient is here for follow up to [facility] ER HPI Staff Patient is here for f/u to [facility] ER on 08/12/23 due to distal right [...] Hydronephrosis with renal and ureteral calculous obstruction) [facility] ER visit 08/12/23 due to [...] abdominal pain) See #1 4. Anticoagulated (Z79.01: FDC (current) use of anticoagulants) On warfarin 3mg for a-fib. States she did not take this last night. Advised pt not to take her dose today either. Follow-up With When Contact Information ANGELITO AGUIAR, Renato Arzola, URL [facility] [address], [place] [address]- [phone] Additional Instructions: sched ureteroscopy f/u w/ [facility] scheduled 10/14/23 Patient Education Laser Therapy for Kidney Stones I, Amy Gallagher, personally scribed for Dr. Santacruz on 08/13/2023 11:35:03. . Documentation recorded by the scribe, Amy Gallagher, accurately reflects the services(s) I performed and decisions made by me. Authenticated by Dr. Santacruz on 08/13/2023 11:37:02. Problem List/Past Medical History Ongoi (more content not included)... Normal [facility] Comment on above: Result Comment: Elec tronically Signed By: Renato SANTACRUZ MD\.br\Date and Time Signed: 08/13/23 11:37 EST\.br\Electronically Co-Signed By: Amy Gallagher\.br\Date and Time Co-Signed: 08/13/23 11:35 EST COVID/FLU/RSV RT-PCRon 07-25 SARS-CoV-2 (COVID-19) RNA TREASURE+probe Ql (Unsp spec) Negative [facility] Other COVID/FLU/RSV RT-PCR Negative [facility] Other COVID/FLU/RSV RT-PCR Positive [facility] Other Calculus Analysison 03-27-20 23 Calcium oxalate dihydrate Infrared spectroscopy (Stone) [Mass fraction] 100 % Invalid Interpretation Code [facility] Comment on above: Performed By: #### 1 [id number] ####[facility] [address] [place] [address] Color (Stone) Roper Invalid Interpretation Code [facility] Comment on above: Performed By: #### 1 [id number] ####[facility] [address] [place] [address] Composition Comment Invalid Interpretation Code [facility] Comment on above: Result Comment: Perc entage (Represents the % composition) Performed By: #### 1 [id number] ####[facility] [address] [place] [address] Disclaimer: Comment Invalid Interpretation Code [facility] Comment on above: Result Comment: This test was developed and its performance characteristics determined by [facility]. It has not been cleared or approved by the Food and Drug Administration. Performed at: [facility] [address] [place], [place] [id number] PhD Silvestre Esquivel Performed By: #### 1 [id number] ####[facility] [address] [place] [address] Laboratory comment Noam (Report) Comment Invalid Interpretation Code [facility] Comment on above: Result Comment: Coco goode questions regarding Calculi Analysis [facility] at: [phone]. Performed By: #### 1 [id number] ####[address] [address] Please Note: Comment Invalid Interpretation Code [facility] Comment on above: Result Comment: Calc javier report will follow via computer, mail or telecommunication engineer delivery. Performed By: #### 1 [id number] ####[id number] [place] [address] Size (Stone) [Entitic vol] 6x4 Invalid Interpretation Code [facility] Comment on above: Result Comment: Sing le piece received. Performed By: #### 1 [id number] ####[address] [place] [address] Specimen source subject Nom Comment Invalid Interpretation Code [facility] Comment on above: Result Comment: Not provided Performed By: #### 1 [id number] ####[facility] [address] [place] [address] Stone Photo Comment Invalid Interpretation Code [facility] Comment on above: Result Comment: Phot ograph will follow under a separate cover Performed By: #### 1 [id number] ####[facility] [address] [place] [address] Weight (Stone) 49 mg Invalid Interpretation Code [facility] Comment on above: Performed By: #### 1 [id number] ####[facility] [address] [place] [address] Lab Reportson 03-27-2023 Lab Reports [id number]#1. 00CD:127 Normal [facility] Activated partial thrombopla stin time (aPTT) in platelet poor plasma by coagulation aOrdered By: Williams Shepherd on 03-26-2023 aPTT Coag (PPP) [Time] 35.9 s 25.1-36.5 [facility] Comment on above: A hematocrit value g reater than 55% may lead to inaccurate results in coagulation testing. Patients having hematocrit values >55% require a special collection tube for coagulation studies. Please contact the laboratory at [phone] for redraw instructions. Basophils Auto (Bld) [#/Vol] Ordered By: Williams Shepherd on 03-26-2023 Basophils (Bld) [#/Vol] 0.0 10*3/uL 0.0-0.2 [facility] Basophils/100 WBC Auto (Bld) Ordered By: Williams Shepherd on 03-26-2023 Basophils/100 WBC (Bld) 0.8 % . [facility] Calcium [Mass/volume] in Ser um or PlasmaOrdered By: Williams Shepherd on 03-26-2023 Calcium [Mass/Vol] 10.0 mg/dL 8.6-10.3 [facility] Carbon dioxide, total [Moles /volume] in Serum or PlasmaOrdered By: Williams Shepherd on 03-26-2023 CO2 [Moles/Vol] 30.0 mmol/L 21.0-31.0 [facility] Chloride [Moles/volume] in S fartun or PlasmaOrdered By: Williams Shepherd on 03-26-2023 Chloride [Moles/Vol] 104 mmol/L 98-107 [facility] Creatinine [Mass/volume] in Serum or PlasmaOrdered By: Williams Shepherd on 03-26-2023 Creatinine [Mass/Vol] 0.85 mg/dL 0.60-1.20 [facility] Eosinophils Auto (Bld) [#/Vo l]Ordered By: Williams Shepherd on 03-26-2023 Eosinophils (Bld) [#/Vol] 0.3 10*3/uL 0.0-0.45 [facility] Eosinophils/100 WBC Auto (Bl d)Ordered By: Williams Shepherd on 03-26-2023 Eosinophils/100 WBC (Bld) 4.3 % . [facility] Erythrocyte distribution wid th Auto (RBC) [Ratio]Ordered By: Williams Shepherd on 03-26-2023 Erythrocyte distribution width (RBC) [Ratio] 14.8 % 11.9-15.3 [facility] Glucose [Mass/volume] in Ser um or PlasmaOrdered By: Williams Shepherd on 03-26-2023 Glucose [Mass/Vol] 111 mg/dL 70-100 [facility] Comment on above: ADA recommended refe rence rangeRandom Glucose Reference Range is dependent on time and content of last meal. Glucose of more than 200 mg/dL in a nonstressed, ambulatory subject supports the diagnosis of Diabetes Mellitus. Hematocrit Auto (Bld) [Volum e fraction]Ordered By: Williams Shepherd on 03-26-2023 Hematocrit (Bld) [Volume fraction] 40.3 % 34.0-46.4 [facility] Hemoglobin [Mass/volume] in BloodOrdered By: Williams Shepherd on 03-26-2023 Hemoglobin (Bld) [Mass/Vol] 13.3 g/dL 11.8-15.4 [facility] INR in Platelet poor plasma by Coagulation assayOrdered By: Williams Shepherd on 03-26-2023 INR Coag (PPP) [Relative time] 2.3 {INR} [facility] Comment on above: INR Therapeutic Rang [...] RBC Auto (Bld) [#/Vol] 5.9 10*3/uL 3.8-11.6 [facility] Lymphocytes Auto (Bld) [#/Vo l]Ordered By: Williams Shepherd on 03-26-2023 Lymphocytes (Bld) [#/Vol] 2.2 10*3/uL 1.00-4.8 [facility] Lymphocytes/100 WBC Auto (Bl d)Ordered By: Williams Shepherd on 03-26-2023 Lymphocytes/100 WBC (Bld) 36.9 % . [facility] MCH Auto (RBC) [Entitic mass ]Ordered By: Williams Shepherd on 03-26-2023 MCH (RBC) [Entitic mass] 31.1 pg 24.7-34.3 [facility] MCHC Auto (RBC) [Mass/Vol]Or dered By: Williams Shepherd on 03-26-2023 MCHC (RBC) [Mass/Vol] 32.9 g/dL 32.0-35.0 [facility] MCV Auto (RBC) [Entitic vol] Ordered By: Williams Shepherd on 03-26-2023 MCV (RBC) [Entitic vol] 94.4 fL 80-100 [facility] Monocytes Auto (Bld) [#/Vol] Ordered By: Williams Shepherd on 03-26-2023 Monocytes (Bld) [#/Vol] 0.5 10*3/uL 0.0-0.8 [facility] Monocytes/100 WBC Auto (Bld) Ordered By: Williams Shepherd on 03-26-2023 Monocytes/100 WBC (Bld) 7.8 % . [facility] Neutrophils Auto (Bld) [#/Vo l]Ordered By: Williams Shepherd on 03-26-2023 Neutrophils (Bld) [#/Vol] 3.0 10*3/uL 1.8-7.7 [facility] Neutrophils/100 WBC Auto (Bl d)Ordered By: Williams Shepherd on 03-26-2023 Neutrophils/100 WBC (Bld) 50.2 % . [facility] No Panel InformationOrdered By: Williams Shepherd on 03-26-2023 Estimated GFR (CKD-EPI) > 60.0 mL/Min [facility] Creatinine Clearance (Chem N/A [facility] Nucleated erythrocytes [Pres ence] in Blood by Automated countOrdered By: Williams Shepherd on 03-26-2023 Nucleated RBC Auto Ql (Bld) 0.3 /100{WBC} 0-0.5 [facility] Platelet mean volume Auto (B ld) [Entitic vol]Ordered By: Williams Shepherd on 03-26-2023 Platelet mean volume (Bld) [Entitic vol] 7.1 fL 6.3-10.7 [facility] Platelets Auto (Bld) [#/Vol] Ordered By: Williams Shepherd on 03-26-2023 Platelets (Bld) [#/Vol] 363 10*3/uL 150-450 [facility] Potassium [Moles/volume] in Serum or PlasmaOrdered By: Williams Shepherd on 03-26-2023 Potassium [Moles/Vol] 5.0 mmol/L 3.5-5.1 [facility] Prothrombin time (PT)Ordered By: Williams Shepherd on 03-26-2023 PT Coag (PPP) [Time] 26.6 s 9.0-12.9 [facility] Comment on above: A hematocrit value g reater than 55% may lead to inaccurate results in coagulation testing. Patients having hematocrit values >55% require a special collection tube for coagulation studies. Please contact the laboratory at [phone] for redraw instructions. RBC Auto (Bld) [#/Vol]Ordere d By: Williams Shepherd on 03-26-2023 RBC (Bld) [#/Vol] 4.27 10*6/uL 3.60-5.00 [facility] Serum or plasma anion gap de terminationOrdered By: Williams Shepherd on 03-26-2023 Anion gap [Moles/Vol] 13.0 mmol/L 6.0-15.0 [facility] Sodium [Moles/volume] in Ser um or PlasmaOrdered By: Williams Shepherd on 03-26-2023 Sodium [Moles/Vol] 142 mmol/L 136-145 [facility] Urea nitrogen [Mass/volume] in Serum or PlasmaOrdered By: Williams Shepherd on 03-26-2023 Urea nitrogen [Mass/Vol] 12 mg/dL 7-25 [facility] WBC Auto (Bld) [#/Vol]Ordere d By: Williams Shepherd on 03-26-2023 WBC (Bld) [#/Vol] 5.9 10*3/uL 3.8-11.6 [facility] Consultation Noteon 03-17-20 Consultation Note [id number] .00CD:127 Normal [facility] Lab Reportson 02-12-2023 Lab Reports [id number] .00CD:127 Normal [facility] RAD - MISCon 02-12-2023 RAD - MISC [id number] .00CD:127 Normal [facility] RAD - CT Reporton 02-05-2023 RAD - CT Report [id number] .00CD:127 Normal [facility] RAD - MISCon 02-05-2023 RAD - MISC [id number] .00CD:127 Normal [facility] Ambulatory Visit Summaryon 0 02-03-2023 [...] of [facility] Patient Educationon 02-04-20 23 Patient [...] these instructions at home: Medicines ? Take [id number] and prescription medicines only as told by [...] and follow (more content not included)... Normal [facility] Urology Office/Clinic Noteon 02-03-2023 Urology Office/Clinic Note Chief Complaint 16 month follow up w/ CT scan HPI Staff Pt is here today for 16 month follow up w/ CT scan done @[facility] on 01/15/23. CT scan shows [...] MD, URL [address] [place] [id number]- Additional Instructions: Patient Education Kidney Stones I, Fanny Bowen, personally scribed for Dr. Shepherd on 02/03/2023 12:04:03. . Documentation recorded by the scribe, Fanny Bowen, accurately reflects the services(s) I performed and decisions made by me. Authenticated by Dr. Shepherd on 02/03/2023 12:37:35. Portions of this record may have been created with voice recognition artificial intelligence software, specifically [employer] and or [employer]. Substitutions may have occurred due to the inherent limitations of voice recognition and artificial intelligence software. Problem List/Past Medical History Ongoing Abdominal pain Anticoagulated Anxiety BMI 27.0-27.9,adult Depression Diabetes Former smoker Frequent urination Heart murmur History of uterine cancer Hx of group home use of blood thin (more content not included)... Normal [facility] Comment on above: Result Comment: Elec tronically Signed By: Williams SHEPHERD MD\.br\Date and Time Signed: 02/03/23 12:39 EDT\.br\Electronically Co-Signed By: Fanny Bowen\.br\Date and Time Co-Signed: 02/03/23 12:04 EDT PROTIMEon 12-02-2022 INR Coag (PPP) [Relative time] 3.62 {INR} Normal [facility] Comment on above: Performed By: #### P T #### [facility] [address] [place] [address] Dr. Tg Fierro INR GUIDELINES SEE BELOW Normal [facility] Comment on above: Result Comment: LAURENCE RED INR: 2.0 - 3.0 CONDITIONS NOT LISTED BELOW 2.5 - 3.5 FOR PROSTHETIC HEART VALVE REPLACEMENT 2.5 - 3.5 RECURRENT THROMBOSIS Performed By: #### P T #### [facility] [address] [place] [address] Dr. Tg Fierro PT Coag (PPP) [Time] 35.7 s Critically high 9.0-11.6 [facility] Comment on above: Performed By: #### P T #### [facility] [address] [place] [address] Dr. Tg Fierro PROTIMEon 11-11-2022 INR Coag (PPP) [Relative time] 1.90 {INR} Normal [facility] Comment on above: Performed By: #### P T #### [facility] [address] [place] [address] Dr. Tg Fierro INR GUIDELINES SEE BELOW Normal [facility] Comment on above: Result Comment: LAURENCE RED INR: 2.0 - 3.0 CONDITIONS NOT LISTED BELOW 2.5 - 3.5 FOR PROSTHETIC HEART VALVE REPLACEMENT 2.5 - 3.5 RECURRENT THROMBOSIS Performed By: #### P T #### [facility] [address] [place] [address] Dr. Tg Fierro PT Coag (PPP) [Time] 19.4 s Critically high 9.0-11.6 [facility] Comment on above: Performed By: #### P T #### [facility] [address] [place] [address] Dr. Tg Fierro CBC AUTO DIFFon 10-25-2022 BASO # 0.0 103/ul Normal 0.0-0.1 [facility] Comment on above: Performed By: #### P T #### [facility] [address] [place] [address] Dr. Tg Fierro Basophils/100 WBC (Bld) 0.5 % Normal 0.2-2.0 [facility] Comment on above: Performed By: #### P T #### [facility] [address] [place] [address] Dr. Tg Fierro EO # 0.2 103/ul Normal 0.0-0.7 [facility] Comment on above: Performed By: #### P T #### [facility] [address] [place] [address] Dr. Tg Fierro Eosinophils/100 WBC (Bld) 2.7 % Normal 0.9-7.0 [facility] Comment on above: Performed By: #### P T #### [facility] [address] [place] [address] Dr. Tg Fierro Erythrocyte distribution width (RBC) [Ratio] 13.4 % Normal 11.0-15.0 [facility] Comment on above: Performed By: #### P T #### [facility] [address] [place] [address] Dr. Tg Fierro Hematocrit (Bld) [Volume fraction] 40.7 % Normal 36.0-48.0 [facility] Comment on above: Performed By: #### P T #### [facility] [address] [place] [address] Dr. Tg Fierro Hemoglobin (Bld) [Mass/Vol] 13.2 g/dL Normal 12.0-16.0 [facility] Comment on above: Performed By: #### P T #### [facility] [address] [place] [address] Dr. Tg Fierro IG # 0.03 10e3/ul Normal 0.00-0.03 [facility] Comment on above: Performed By: #### P T #### [facility] [address] [place] [address] Dr. Tg Fierro IG % 0.5 % Normal 0.0-0.5 [facility] Comment on above: Performed By: #### P T #### [facility] [address] [place] [address] Dr. Tg Fierro LYMPH # 2.1 103/ul Normal 1.2-3.8 [facility] Comment on above: Performed By: #### P T #### [facility] [address] [place] [address] Dr. Tg Fierro Lymphocytes/100 WBC (Bld) 34.9 % Normal 20.5-60.0 [facility] Comment on above: Performed By: #### P T #### [facility] [address] [place] [address] Dr. Tg Fierro MANUAL DIFF REQ NO Normal [facility] Comment on above: Performed By: #### P T #### [facility] [address] [place] [address] Dr. Tg Fierro MCH (RBC) [Entitic mass] 30.5 pg Normal 26.7-34.0 [facility] Comment on above: Performed By: #### P T #### [facility] [address] [place] [address] Dr. Tg Fierro MCHC (RBC) [Mass/Vol] 32.4 g/dL Normal 29.9-35.2 [facility] Comment on above: Performed By: #### P T #### [facility] [address] [place] [address] Dr. Tg Fierro MCV (RBC) [Entitic vol] 94.0 fL Normal 81.0-99.0 [facility] Comment on above: Performed By: #### P T #### [facility] [address] [place] [address] Dr. Tg Fierro MONO # 0.4 103/ul Normal 0.3-0.8 [facility] Comment on above: Performed By: #### P T #### [facility] [address] [place] [address] Dr. Tg Fierro Monocytes/100 WBC (Bld) 7.1 % Normal 1.7-12.0 [facility] Comment on above: Performed By: #### P T #### [facility] [address] [place] [address] Dr. Tg Fierro NEUT # 3.2 103/ul Normal 1.4-6.5 [facility] Comment on above: Performed By: #### P T #### [facility] [address] [place] [address] Dr. Tg Fierro Neutrophils/100 WBC (Bld) 54.3 % Normal 43.0-75.0 [facility] Comment on above: Performed By: #### P T #### [facility] [address] [place] [address] Dr. Tg Fierro Platelet mean volume (Bld) [Entitic vol] 8.7 fL Critically low 9.5-13.5 [facility] Comment on above: Performed By: #### P T #### [facility] [address] [place] [address] Dr. Tg Fierro PLT 295 103/ul Normal 150-450 [facility] Comment on above: Performed By: #### P T #### [facility] [address] [place] [address] Dr. Tg Fierro RBC 4.33 106/ul Normal 4.20-5.40 [facility] Comment on above: Performed By: #### P T #### [facility] [address] [place] [address] Dr. Tg Fierro WBC 5.9 103/ul Normal 4.0-11.0 [facility] Comment on above: Performed By: #### P T #### [facility] [address] [place] [address] Dr. Tg Fierro PROF 14(COMP METB)on 023 Albumin [Mass/Vol] 3.8 g/dL Normal 3.4-5.0 [facility] Comment on above: Performed By: #### C MP #### [facility] [address] [place] [address] Dr. Tg Fierro Albumin/Globulin [Mass ratio] 1.2 {ratio} Normal [facility] Comment on above: Performed By: #### C MP #### [facility] [address] [place] [address] Dr. Tg Fierro ALP [Catalytic activity/Vol] 49 U/L Normal 46-116 [facility] Comment on above: Performed By: #### C MP #### [facility] [address] [address] [address] Tg Fierro ALT [Catalytic activity/Vol] 21 U/L Normal 14-59 [facility] Comment on above: Performed By: #### C MP #### [facility] [address] [address] [address] Tg Fierro Anion gap [Moles/Vol] 13.3 mmol/L Normal [facility] Comment on above: Performed By: #### C MP #### [facility] [address] [address] [address] Tg Fierro AST [Catalytic activity/Vol] 14 U/L Critically low 15-37 [facility] Comment on above: Performed By: #### C MP #### [facility] [address] [place] [address] Dr. Tg Fierro Bilirubin [Mass/Vol] 0.5 mg/dL Normal 0.2-1.0 [facility] Comment on above: Performed By: #### C MP #### [facility] [address] [place] [address] Dr. Tg Fierro Calcium [Mass/Vol] 9.5 mg/dL Normal 8.5-10.1 [facility] Comment on above: Performed By: #### C MP #### [facility] [address] [address] [address] Tg Fierro Chloride [Moles/Vol] 104 mmol/L Normal 98-107 [facility] Comment on above: Performed By: #### C MP #### [facility] [address] [address] [address] Tg Fierro CO2 [Moles/Vol] 29.3 mmol/L Normal 21.0-32.0 [facility] Comment on above: Performed By: #### C MP #### [facility] [address] [address] [address] Tg Fierro Creatinine [Mass/Vol] 0.93 mg/dL Normal 0.55-1.02 [facility] Comment on above: Performed By: #### C MP #### [facility] [address] [address] [address] Tg Fierro EGFR-AF KENYAN >60 Normal >=60 [facility] Comment on above: Performed By: #### C MP #### [facility] [address] [address] [address] Tg Fierro EGFR-NON AF KENYAN 59 mL/min/1.73m2 Critically low >=60 [facility] Comment on above: Performed By: #### C MP #### [facility] [address] [address] [address] Tg Fierro Globulin (S) [Mass/Vol] 3.2 g/dL Normal [facility] Comment on above: Performed By: #### C MP #### [facility] [address] [address] [address] Tg Fierro Glucose [Mass/Vol] 186 mg/dL Critically high 74-106 [facility] Comment on above: Performed By: #### C MP #### [facility] [address] [address] [address] gT Fierro Potassium [Moles/Vol] 4.6 mmol/L Normal 3.5-5.1 [facility] Comment on above: Performed By: #### C MP #### [facility] [address] [address] [address] Tg Fierro Protein [Mass/Vol] 7.0 g/dL Normal 6.4-8.2 [facility] Comment on above: Performed By: #### C MP #### [facility] [address] [address] [address] Tg Fierro Sodium [Moles/Vol] 142 mmol/L Normal 136-145 [facility] Comment on above: Performed By: #### C MP #### [facility] [address] [address] [address] Tg Fierro Urea nitrogen [Mass/Vol] 15.0 mg/dL Normal 7.0-18.0 [facility] Comment on above: Performed By: #### C MP #### [facility] [address] [address] [address] Tg Fierro Urea nitrogen/Creatinine [Mass ratio] 16.1 mg/mg Normal [facility] Comment on above: Performed By: #### C MP #### [facility] [address] [address] [address] Tg Fierro SED RATE WESTERGRENon 2022 SED RATE 9 mm/hr Normal <=30 [facility] Comment on above: Performed By: #### C MP #### [facility] [address] [place] [address] Dr. Tg Fierro PROTIMEon 10-14-2022 INR Coag (PPP) [Relative time] 1.94 {INR} Normal [facility] Comment on above: Performed By: #### P T #### [facility] [address] [place] [address] Dr. Tg Fierro INR GUIDELINES SEE BELOW Normal [facility] Comment on above: Result Comment: LAURENCE RED INR: 2.0 - 3.0 CONDITIONS NOT LISTED BELOW 2.5 - 3.5 FOR PROSTHETIC HEART VALVE REPLACEMENT 2.5 - 3.5 RECURRENT THROMBOSIS Performed By: #### P T #### [facility] [address] [place] [address] Dr. Tg Fierro PT Coag (PPP) [Time] 19.8 s Critically high 9.0-11.6 [facility] Comment on above: Performed By: #### P T #### [facility] [address] [place] [address] Dr. Tg Fierro CBC AUTO DIFFon 09-24-2022 BASO # 0.1 103/ul Normal 0.0-0.1 [facility] Comment on above: Performed By: #### P T #### [facility] [address] [place] [address] Dr. Tg Fierro Basophils/100 WBC (Bld) 0.7 % Normal 0.2-2.0 [facility] Comment on above: Performed By: #### P T #### [facility] [address] [place] [address] Dr. Tg Fierro EO # 0.3 103/ul Normal 0.0-0.7 [facility] Comment on above: Performed By: #### P T #### [facility] [address] [place] [address] Dr. Tg Fierro Eosinophils/100 WBC (Bld) 3.6 % Normal 0.9-7.0 [facility] Comment on above: Performed By: #### P T #### [facility] [address] [place] [address] Dr. Tg Fierro Erythrocyte distribution width (RBC) [Ratio] 13.4 % Normal 11.0-15.0 [facility] Comment on above: Performed By: #### P T #### [facility] [address] [place] [address] Dr. Tg Fierro Hematocrit (Bld) [Volume fraction] 38.4 % Normal 36.0-48.0 [facility] Comment on above: Performed By: #### P T #### [facility] [address] [place] [address] Dr. Tg Fierro Hemoglobin (Bld) [Mass/Vol] 12.7 g/dL Normal 12.0-16.0 [facility] Comment on above: Performed By: #### P T #### [facility] [address] [place] [address] Dr. Tg Fierro IG # 0.05 10e3/ul Critically high 0.00-0.03 [facility] Comment on above: Performed By: #### P T #### [facility] [address] [place] [address] Dr. Tg Fierro IG % 0.7 % Critically high 0.0-0.5 [facility] Comment on above: Performed By: #### P T #### [facility] [address] [place] [address] Dr. Tg Fierro LYMPH # 2.6 103/ul Normal 1.2-3.8 [facility] Comment on above: Performed By: #### P T #### [facility] [address] [place] [address] Dr. Tg Fierro Lymphocytes/100 WBC (Bld) 34.2 % Normal 20.5-60.0 [facility] Comment on above: Performed By: #### P T #### [facility] [address] [place] [address] Dr. Tg Fierro MANUAL DIFF REQ NO Normal [facility] Comment on above: Performed By: #### P T #### [facility] [address] [place] [address] Dr. Tg Fierro MCH (RBC) [Entitic mass] 31.2 pg Normal 26.7-34.0 [facility] Comment on above: Performed By: #### P T #### [facility] [address] [place] [address] Dr. Tg Fierro MCHC (RBC) [Mass/Vol] 33.1 g/dL Normal 29.9-35.2 [facility] Comment on above: Performed By: #### P T #### [facility] [address] [place] [address] Dr. Tg Fierro MCV (RBC) [Entitic vol] 94.3 fL Normal 81.0-99.0 [facility] Comment on above: Performed By: #### P T #### [facility] [address] [place] [address] Dr. Tg Fierro MONO # 0.6 103/ul Normal 0.3-0.8 [facility] Comment on above: Performed By: #### P T #### [facility] [address] [place] [address] Dr. Tg Fierro Monocytes/100 WBC (Bld) 8.1 % Normal 1.7-12.0 [facility] Comment on above: Performed By: #### P T #### [facility] [address] [place] [address] Dr. Tg Fierro NEUT # 4.1 103/ul Normal 1.4-6.5 [facility] Comment on above: Performed By: #### P T #### [facility] [address] [place] [address] Dr. Tg Fierro Neutrophils/100 WBC (Bld) 52.7 % Normal 43.0-75.0 [facility] Comment on above: Performed By: #### P T #### [facility] [address] [place] [address] Dr[address] Tg Fierro Platelet mean volume (Bld) [Entitic vol] 8.7 fL Critically low 9.5-13.5 [facility] Comment on above: Performed By: #### P T #### [facility] [address] [place] [address] Dr. Tg Fierro PLT 278 103/ul Normal 150-450 [facility] Comment on above: Performed By: #### P T #### [facility] [address] [place] [address] Dr. gT Fierro RBC 4.07 106/ul Critically low 4.20-5.40 [facility] Comment on above: Performed By: #### P T #### [facility] [address] [place] [address] Dr. Tg Fierro WBC 7.7 103/ul Normal 4.0-11.0 [facility] Comment on above: Performed By: #### P T #### [facility] [address] [place] [address] Dr. Tg Fierro PROF 14(COMP METB)on 023 Albumin [Mass/Vol] 3.9 g/dL Normal 3.4-5.0 [facility] Comment on above: Performed By: #### C MP #### [facility] [address] [place] [address] Dr. Tg Fierro Albumin/Globulin [Mass ratio] 1.4 {ratio} Normal [facility] Comment on above: Performed By: #### C MP #### [facility] [address] [place] [address] Dr. Tg Fierro ALP [Catalytic activity/Vol] 59 U/L Normal 46-116 [facility] Comment on above: Performed By: #### C MP #### [facility] [address] [place] [address] Dr. Tg Fierro ALT [Catalytic activity/Vol] 21 U/L Normal 14-59 [facility] Comment on above: Performed By: #### C MP #### [facility] [address] [address] [address] Tg Fierro Anion gap [Moles/Vol] 10.8 mmol/L Normal [facility] Comment on above: Performed By: #### C MP #### [facility] [address] [address] [address] Tg Fierro AST [Catalytic activity/Vol] 9 U/L Critically low 15-37 [facility] Comment on above: Performed By: #### C MP #### [facility] [address] [address] [address] Tg Fierro Bilirubin [Mass/Vol] 0.3 mg/dL Normal 0.2-1.0 [facility] Comment on above: Performed By: #### C MP #### [facility] [address] [address] [address] Tg Fierro Calcium [Mass/Vol] 9.1 mg/dL Normal 8.5-10.1 [facility] Comment on above: Performed By: #### C MP #### [facility] [address] [address] [address] Tg Fierro Chloride [Moles/Vol] 104 mmol/L Normal 98-107 [facility] Comment on above: Performed By: #### C MP #### [facility] [address] [address] [address] Tg Fierro CO2 [Moles/Vol] 28.3 mmol/L Normal 21.0-32.0 [facility] Comment on above: Performed By: #### C MP #### [facility] [address] [address] [address] Tg Fierro Creatinine [Mass/Vol] 0.86 mg/dL Normal 0.55-1.02 [facility] Comment on above: Performed By: #### C MP #### [facility] [address] [address] [address] Tg Fierro EGFR-AF KENYAN >60 Normal >=60 [facility] Comment on above: Performed By: #### C MP #### [facility] [address] [address] [address] Tg Fierro EGFR-NON AF KENYAN >60 Normal >=60 [facility] Comment on above: Performed By: #### C MP #### [facility] [address] [address] [address] Tg Fierro Globulin (S) [Mass/Vol] 2.7 g/dL Normal [facility] Comment on above: Performed By: #### C MP #### [facility] [address] [address] [address] Tg Fierro Glucose [Mass/Vol] 120 mg/dL Critically high 74-[address] [facility] Comment on above: Performed By: #### C MP #### [facility] [address] [address] [address] Tg Fierro Potassium [Moles/Vol] 4.1 mmol/L Normal 3.5-5.1 [facility] Comment on above: Performed By: #### C MP #### [facility] [address] [address] [address] Tg Fierro Protein [Mass/Vol] 6.6 g/dL Normal 6.4-8.2 [facility] Comment on above: Performed By: #### C MP #### [facility] [address] [place] [address] Dr. Tg Fierro Sodium [Moles/Vol] 139 mmol/L Normal 136-145 [facility] Comment on above: Performed By: #### C MP #### [facility] [address] [address] [address] Tg Fierro Urea nitrogen [Mass/Vol] 13.0 mg/dL Normal 7.0-18.0 [facility] Comment on above: Performed By: #### C MP #### [facility] [address] [place] [address] Dr. Tg Fierro Urea nitrogen/Creatinine [Mass ratio] 15.1 mg/mg Normal [facility] Comment on above: Performed By: #### C MP #### [facility] [address] [place] [address] Dr. Tg Fierro PROTIMEon 09-24-2022 INR Coag (PPP) [Relative time] 1.35 {INR} Normal [facility] Comment on above: Performed By: #### P T #### [facility] [address] [place] [address] Dr. Tg Fierro INR GUIDELINES SEE BELOW Normal [facility] Comment on above: Result Comment: LAURENCE RED INR: 2.0 - 3.0 CONDITIONS NOT LISTED BELOW 2.5 - 3.5 FOR PROSTHETIC HEART VALVE REPLACEMENT 2.5 - 3.5 RECURRENT THROMBOSIS Performed By: #### P T #### [facility] [address] [place] [address] Dr. Tg Fierro PT Coag (PPP) [Time] 14.1 s Critically high 9.0-11.6 [facility] Comment on above: Performed By: #### P T #### [facility] [address] [place] [address] Dr. Tg Fierro SED RATE [facility] 2022 SED RATE 8 mm/hr Normal <=30 [facility] Comment on above: Performed By: #### C MP #### [facility] [address] [place] [address] Dr. Tg Fierro PROTIMEon 09-09-2022 INR Coag (PPP) [Relative time] 1.23 {INR} Normal [facility] Comment on above: Performed By: #### P T #### [facility] [address] [place] [address] Dr. Tg Fierro INR GUIDELINES SEE BELOW Normal [facility] Comment on above: Result Comment: LAURENCE RED INR: 2.0 - 3.0 CONDITIONS NOT LISTED BELOW 2.5 - 3.5 FOR PROSTHETIC HEART VALVE REPLACEMENT 2.5 - 3.5 RECURRENT THROMBOSIS Performed By: #### P T #### [facility] [address] [place] [address] Dr. Tg Fierro PT Coag (PPP) [Time] 12.9 s Critically high 9.0-11.6 [facility] Comment on above: Performed By: #### P T #### [facility] [address] [address] [address] Tg Fierro ECHOCARDIO M/2D COMPLETEon 0 09-02-2022 ECHOCARDIO M/2D COMPLETE Patient: WILDA SEN Exam Date: 09/02/2022 : 1945 Gender:F Ordering : DR JAYME PEREZ . Admission #: [id number] Family : Order #: [id number] CLICK HERE TO VIEW EXAM ECHOCARDIOGRAM REPORT [...] Bender M.D. on 09/03/2022 at 17:25 Normal [facility] GLYCOHEMOGLOBIN A1Con 2022 ADA RECOMMENDATION SEE BELOW Normal [facility] Comment on above: Result Comment: ADA RECOMMENDED LIMIT 4.0 - 6.0 ADA THERAPEUTIC TARGET < 7.0 ACTION SUGGESTED > 7.0 Performed By: #### A 1C #### [facility] [address] [place] [address] Dr. Tg Fierro Glucose [Mass/Vol] 148 mg/dL Normal [facility] Comment on above: Performed By: #### A 1C #### [facility] [address] [place] [address] Dr. Tg Fierro HbA1c (Bld) [Mass fraction] 6.8 % Critically high 4.5-6.2 [facility] Comment on above: Performed By: #### A 1C #### [facility] [address] [place] [address] Dr. Tg Fierro CBC AUTO DIFFon 08-05-2022 BASO # 0.1 103/ul Normal 0.0-0.1 [facility] Comment on above: Performed By: #### C BC #### [facility] [address] [place] [address] Dr. Tg Fierro Basophils/100 WBC (Bld) 0.8 % Normal 0.2-2.0 [facility] Comment on above: Performed By: #### C BC #### [facility] [address] [place] [address] Dr. Tg Fierro EO # 0.5 103/ul Normal 0.0-0.7 [facility] Comment on above: Performed By: #### C BC #### [facility] [address] [place] [address] Dr. Tg Fierro Eosinophils/100 WBC (Bld) 7.3 % Critically high 0.9-7.0 [facility] Comment on above: Performed By: #### C BC #### [facility] [address] [place] [address] Dr. Tg Fierro Erythrocyte distribution width (RBC) [Ratio] 13.4 % Normal 11.0-15.0 [facility] Comment on above: Performed By: #### C BC #### [facility] [address] [place] [address] Dr. Tg Fierro Hematocrit (Bld) [Volume fraction] 37.1 % Normal 36.0-48.0 [facility] Comment on above: Performed By: #### C BC #### [facility] [address] [place] [address] Dr. Tg Fierro Hemoglobin (Bld) [Mass/Vol] 12.9 g/dL Normal 12.0-16.0 [facility] Comment on above: Performed By: #### C BC #### [facility] [address] [place] [address] Dr. Tg Fierro IG # 0.03 10e3/ul Normal 0.00-0.03 [facility] Comment on above: Performed By: #### C BC #### [facility] [address] [place] [address] Dr. Tg Fierro IG % 0.5 % Normal 0.0-0.5 [facility] Comment on above: Performed By: #### C BC #### [facility] [address] [place] [address] Dr. Tg Fierro LYMPH # 2.3 103/ul Normal 1.2-3.8 [facility] Comment on above: Performed By: #### C BC #### [facility] [address] [place] [address] Dr. Tg Firero Lymphocytes/100 WBC (Bld) 34.9 % Normal 20.5-60.0 [facility] Comment on above: Performed By: #### C BC #### [facility] [address] [place] [address] Dr. Tg Fierro MANUAL DIFF REQ NO Normal [facility] Comment on above: Performed By: #### C BC #### [facility] [address] [place] [address] Dr. Tg Fierro MCH (RBC) [Entitic mass] 31.0 pg Normal 26.7-34.0 [facility] Comment on above: Performed By: #### C BC #### [facility] [address] [address] [address] Tg Fierro MCHC (RBC) [Mass/Vol] 34.8 g/dL Normal 29.9-35.2 [facility] Comment on above: Performed By: #### C BC #### [facility] [address] [address] [address] Tg Fierro MCV (RBC) [Entitic vol] 89.2 fL Normal 81.0-99.0 [facility] Comment on above: Performed By: #### C BC #### [facility] [address] [place] [address] Dr. Tg Fierro MONO # 0.4 103/ul Normal 0.3-0.8 [facility] Comment on above: Performed By: #### C BC #### [facility] [address] [place] [address] Dr. Tg Fierro Monocytes/100 WBC (Bld) 6.1 % Normal 1.7-12.0 [facility] Comment on above: Performed By: #### C BC #### [facility] [address] [place] [address] Dr. Tg Fierro NEUT # 3.3 103/ul Normal 1.4-6.5 [facility] Comment on above: Performed By: #### C BC #### [facility] [address] [place] [address] Dr. Tg Fierro Neutrophils/100 WBC (Bld) 50.4 % Normal 43.0-75.0 [facility] Comment on above: Performed By: #### C BC #### [facility] [address] [address] [address] Tg Fierro Platelet mean volume (Bld) [Entitic vol] 8.6 fL Critically low 9.5-13.5 [facility] Comment on above: Performed By: #### C BC #### [facility] [address] [place] [address] Dr. Tg Fierro PLT 336 103/ul Normal 150-450 [facility] Comment on above: Performed By: #### C BC #### [facility] [address] [address] [address] Tg Fierro RBC 4.16 106/ul Critically low 4.20-5.40 [facility] Comment on above: Performed By: #### C BC #### [facility] [address] [address] [address] Tg Fierro WBC 6.4 103/ul Normal 4.0-11.0 [facility] Comment on above: Performed By: #### C BC #### [facility] [address] [address] [address] Tg Fierro PROF 14(COMP METB)on 023 Albumin [Mass/Vol] 3.9 g/dL Normal 3.4-5.0 [facility] Comment on above: Performed By: #### P T #### [facility] [address] [place] [address] Dr. Tg Fierro Albumin/Globulin [Mass ratio] 1.3 {ratio} Normal [facility] Comment on above: Performed By: #### P T #### [facility] [address] [place] [address] Dr. Tg Fierro ALP [Catalytic activity/Vol] 60 U/L Normal 46-116 [facility] Comment on above: Performed By: #### P T #### [facility] [address] [place] [address] Dr. Tg Fierro ALT [Catalytic activity/Vol] 21 U/L Normal 14-59 [facility] Comment on above: Performed By: #### P T #### [facility] [address] [place] [address] Dr. Tg Fierro Anion gap [Moles/Vol] 15.2 mmol/L Normal [facility] Comment on above: Performed By: #### P T #### [facility] [address] [place] [address] Dr. Tg Fierro AST [Catalytic activity/Vol] 14 U/L Critically low 15-37 [facility] Comment on above: Performed By: #### P T #### [facility] [address] [address] [address] Tg Fierro Bilirubin [Mass/Vol] 0.4 mg/dL Normal 0.2-1.0 [facility] Comment on above: Performed By: #### P T #### [facility] [address] [address] [address] Tg Fierro Calcium [Mass/Vol] 9.3 mg/dL Normal 8.5-10.1 [facility] Comment on above: Performed By: #### P T #### [facility] [address] [address] [address] Tg Fierro Chloride [Moles/Vol] 102 mmol/L Normal 98-107 [facility] Comment on above: Performed By: #### P T #### [facility] [address] [place] [address] Dr. Tg Fierro CO2 [Moles/Vol] 26.8 mmol/L Normal 21.0-32.0 [facility] Comment on above: Performed By: #### P T #### [facility] [address] [place] [address] Dr. Tg Fierro Creatinine [Mass/Vol] 0.74 mg/dL Normal 0.55-1.02 [facility] Comment on above: Performed By: #### P T #### [facility] [address] [place] [address] Dr. Tg Fierro EGFR-AF KENYAN >60 Normal >=60 [facility] Comment on above: Performed By: #### P T #### [facility] [address] [place] [address] Dr. Tg Fierro EGFR-NON AF KENYAN >60 Normal >=60 [facility] Comment on above: Performed By: #### P T #### [facility] [address] [place] [address] Dr. Tg Fierro Globulin (S) [Mass/Vol] 3.1 g/dL Normal [facility] Comment on above: Performed By: #### P T #### [facility] [address] [place] [address] Dr. Tg Fierro Glucose [Mass/Vol] 148 mg/dL Critically high 74-[address] [facility] Comment on above: Performed By: #### P T #### [facility] [address] [place] [address] Dr. Tg Fierro Potassium [Moles/Vol] 4.0 mmol/L Normal 3.5-5.1 [facility] Comment on above: Performed By: #### P T #### [facility] [address] [place] [address] Dr. Tg Fierro Protein [Mass/Vol] 7.0 g/dL Normal 6.4-8.2 [facility] Comment on above: Performed By: #### P T #### [facility] [address] [place] [address] Dr. Tg Fierro Sodium [Moles/Vol] 140 mmol/L Normal 136-145 [facility] Comment on above: Performed By: #### P T #### [facility] [address] [place] [address] Dr. Tg Fierro Urea nitrogen [Mass/Vol] 12.0 mg/dL Normal 7.0-18.0 [facility] Comment on above: Performed By: #### P T #### [facility] [address] [place] [address] Dr. Tg Fierro Urea nitrogen/Creatinine [Mass ratio] 16.2 mg/mg Normal [facility] Comment on above: Performed By: #### P T #### [facility] [address] [place] [address] Dr. Tg Fierro SED RATE [facility] 2022 SED RATE 30 mm/hr Normal <=30 [facility] Comment on above: Performed By: #### S EDR #### [facility] [address] [place] [address] Dr. Tg Fierro CBC AUTO DIFFon 04-15-2022 BASO # 0.1 103/ul Normal 0.0-0.1 [facility] Comment on above: Performed By: #### C BC #### [facility] [address] [place] [address] Dr. Tg Fierro Basophils/100 WBC (Bld) 0.6 % Normal 0.2-2.0 [facility] Comment on above: Performed By: #### C BC #### [facility] [address] [place] [address] Dr. Tg Fierro EO # 0.2 103/ul Normal 0.0-0.7 [facility] Comment on above: Performed By: #### C BC #### [facility] [address] [place] [address] Dr. Tg Fierro Eosinophils/100 WBC (Bld) 3.1 % Normal 0.9-7.0 [facility] Comment on above: Performed By: #### C BC #### [facility] [address] [place] [address] Dr. Tg Fierro Erythrocyte distribution width (RBC) [Ratio] 13.6 % Normal 11.0-15.0 [facility] Comment on above: Performed By: #### C BC #### [facility] [address] [place] [address] Dr. Tg Fierro Hematocrit (Bld) [Volume fraction] 42.3 % Normal 36.0-48.0 [facility] Comment on above: Performed By: #### C BC #### [facility] [address] [place] [address] Dr. Tg Fierro Hemoglobin (Bld) [Mass/Vol] 13.2 g/dL Normal 12.0-16.0 [facility] Comment on above: Performed By: #### C BC #### [facility] [address] [place] [address] Dr. Tg Fierro IG # 0.04 10e3/ul Critically high 0.00-0.03 [facility] Comment on above: Performed By: #### C BC #### [facility] [address] [place] [address] Dr. Tg Fierro IG % 0.5 % Normal 0.0-0.5 [facility] Comment on above: Performed By: #### C BC #### [facility] [address] [place] [address] Dr. Tg Fierro LYMPH # 2.5 103/ul Normal 1.2-3.8 [facility] Comment on above: Performed By: #### C BC #### [facility] [address] [place] [address] Dr. Tg Fierro Lymphocytes/100 WBC (Bld) 31.6 % Normal 20.5-60.0 [facility] Comment on above: Performed By: #### C BC #### [facility] [address] [place] [address] Dr. Tg Fierro MANUAL DIFF REQ NO Normal [facility] Comment on above: Performed By: #### C BC #### [facility] [address] [place] [address] Dr. Tg Fierro MCH (RBC) [Entitic mass] 30.3 pg Normal 26.7-34.0 [facility] Comment on above: Performed By: #### C BC #### [facility] [address] [place] [address] Dr. Tg Fierro MCHC (RBC) [Mass/Vol] 31.2 g/dL Normal 29.9-35.2 [facility] Comment on above: Performed By: #### C BC #### [facility] [address] [place] [address] Dr. Tg Fierro MCV (RBC) [Entitic vol] 97.0 fL Normal 81.0-99.0 [facility] Comment on above: Performed By: #### C BC #### [facility] [address] [place] [address] Dr. Tg Fierro MONO # 0.5 103/ul Normal 0.3-0.8 [facility] Comment on above: Performed By: #### C BC #### [facility] [address] [place] [address] Dr. Tg Fierro Monocytes/100 WBC (Bld) 6.3 % Normal 1.7-12.0 [facility] Comment on above: Performed By: #### C BC #### [facility] [address] [place] [address] Dr. Tg Fierro NEUT # 4.5 103/ul Normal 1.4-6.5 [facility] Comment on above: Performed By: #### C BC #### [facility] [address] [address] [address] Tg Fierro Neutrophils/100 WBC (Bld) 57.9 % Normal 43.0-75.0 [facility] Comment on above: Performed By: #### C BC #### [facility] [address] [place] [address] Dr. Tg Fierro Platelet mean volume (Bld) [Entitic vol] 8.6 fL Critically low 9.5-13.5 [facility] Comment on above: Performed By: #### C BC #### [facility] [address] [place] [address] Dr. Tg Fierro PLT 295 103/ul Normal 150-450 [facility] Comment on above: Performed By: #### C BC #### [facility] [address] [place] [address] Dr. Tg Fierro RBC 4.36 106/ul Normal 4.20-5.40 [facility] Comment on above: Performed By: #### C BC #### [facility] [address] [place] [address] Dr. Tg Fierro WBC 7.8 103/ul Normal 4.0-11.0 [facility] Comment on above: Performed By: #### C BC #### [facility] [address] [place] [address] Dr. Tg Fierro PROF 14(COMP METB)on 022 Albumin [Mass/Vol] 4.5 g/dL Normal 3.4-5.0 [facility] Comment on above: Performed By: #### C MP #### [facility] [address] [place] [address] Dr. Tg Fierro Albumin/Globulin [Mass ratio] 1.5 {ratio} Normal [facility] Comment on above: Performed By: #### C MP #### [facility] [address] [place] [address] Dr. Tg Fierro ALP [Catalytic activity/Vol] 62 U/L Normal 46-116 [facility] Comment on above: Performed By: #### C MP #### [facility] [address] [address] [address] Tg Fierro ALT [Catalytic activity/Vol] 25 U/L Normal 14-59 [facility] Comment on above: Performed By: #### C MP #### [facility] [address] [address] [address] Tg Fierro Anion gap [Moles/Vol] 10.6 mmol/L Normal [facility] Comment on above: Performed By: #### C MP #### [facility] [address] [address] [address] Tg Fierro AST [Catalytic activity/Vol] 12 U/L Critically low 15-37 [facility] Comment on above: Performed By: #### C MP #### [facility] [address] [address] [address] Tg Fierro Bilirubin [Mass/Vol] 0.5 mg/dL Normal 0.2-1.0 [facility] Comment on above: Performed By: #### C MP #### [facility] [address] [address] [address] Tg Fierro Calcium [Mass/Vol] 9.8 mg/dL Normal 8.5-10.1 [facility] Comment on above: Performed By: #### C MP #### [facility] [address] [address] [address] Tg Fierro Chloride [Moles/Vol] 102 mmol/L Normal 98-107 [facility] Comment on above: Performed By: #### C MP #### [facility] [address] [address] [address] Tg Fierro CO2 [Moles/Vol] 31.8 mmol/L Normal 21.0-32.0 [facility] Comment on above: Performed By: #### C MP #### [facility] [address] [address] [address] Tg Fierro Creatinine [Mass/Vol] 0.88 mg/dL Normal 0.55-1.02 [facility] Comment on above: Performed By: #### C MP #### [facility] [address] [address] [address] Tg Fierro EGFR-AF KENYAN >60 Normal >=60 [facility] Comment on above: Performed By: #### C MP #### [facility] [address] [address] [address] Tg Fierro EGFR-NON AF KENYAN >60 Normal >=60 [facility] Comment on above: Performed By: #### C MP #### [facility] [address] [address] [address] Tg Fierro Globulin (S) [Mass/Vol] 3.1 g/dL Normal [facility] Comment on above: Performed By: #### C MP #### [facility] [address] [address] [address] gT Fierro Glucose [Mass/Vol] 187 mg/dL Critically high 74-[address] [facility] Comment on above: Performed By: #### C MP #### [facility] [address] [address] [address] Tg Fierro Potassium [Moles/Vol] 4.4 mmol/L Normal 3.5-5.1 [facility] Comment on above: Performed By: #### C MP #### [facility] [address] [place] [address] Dr. Tg Fierro Protein [Mass/Vol] 7.6 g/dL Normal 6.4-8.2 [facility] Comment on above: Performed By: #### C MP #### [facility] [address] [address] [address] Tg Fierro Sodium [Moles/Vol] 140 mmol/L Normal 136-145 [facility] Comment on above: Performed By: #### C MP #### [facility] [address] [address] [address] Tg Fierro Urea nitrogen [Mass/Vol] 14.0 mg/dL Normal 7.0-18.0 [facility] Comment on above: Performed By: #### C MP #### [facility] [address] [place] [address] Dr. Tg Fierro Urea nitrogen/Creatinine [Mass ratio] 15.9 mg/mg Normal [facility] Comment on above: Performed By: #### C MP #### [facility] [address] [place] [address] Dr. Tg Fierro SED RATE WESTERGRENon 2021 SED RATE 5 mm/hr Normal <=30 [facility] Comment on above: Performed By: #### S EDR #### [facility] [address] [place] [address] Dr. Tg Fierro CBC AUTO DIFFon 02-07-2022 BASO # 0.0 103/ul Normal 0.0-0.1 [facility] Comment on above: Performed By: #### P T #### [facility] [address] [place] [address] Dr. Tg Fierro Basophils/100 WBC (Bld) 0.6 % Normal 0.2-2.0 [facility] Comment on above: Performed By: #### P T #### [facility] [address] [place] [address] Dr. Tg Fierro EO # 0.4 103/ul Normal 0.0-0.7 [facility] Comment on above: Performed By: #### P T #### [facility] [address] [place] [address] Dr. Tg Fierro Eosinophils/100 WBC (Bld) 5.4 % Normal 0.9-7.0 [facility] Comment on above: Performed By: #### P T #### [facility] [address] [place] [address] Dr. Tg Fierro Erythrocyte distribution width (RBC) [Ratio] 13.5 % Normal 11.0-15.0 [facility] Comment on above: Performed By: #### P T #### [facility] [address] [place] [address] Dr. Tg Fierro Hematocrit (Bld) [Volume fraction] 39.4 % Normal 36.0-48.0 [facility] Comment on above: Performed By: #### P T #### [facility] [address] [place] [address] Dr. Tg Fierro Hemoglobin (Bld) [Mass/Vol] 12.8 g/dL Normal 12.0-16.0 [facility] Comment on above: Performed By: #### P T #### [facility] [address] [place] [address] Dr. Tg Fierro IG # 0.02 10e3/ul Normal 0.00-0.03 [facility] Comment on above: Performed By: #### P T #### [facility] [address] [place] [address] Dr. Tg Fierro IG % 0.3 % Normal 0.0-0.5 [facility] Comment on above: Performed By: #### P T #### [facility] [address] [place] [address] Dr. Tg Fierro LYMPH # 2.4 103/ul Normal 1.2-3.8 [facility] Comment on above: Performed By: #### P T #### [facility] [address] [place] [address] Dr. Tg Fierro Lymphocytes/100 WBC (Bld) 36.2 % Normal 20.5-60.0 [facility] Comment on above: Performed By: #### P T #### [facility] [address] [place] [address] Dr. Tg Fierro MANUAL DIFF REQ NO Normal [facility] Comment on above: Performed By: #### P T #### [facility] [address] [place] [address] Dr. Tg Fierro MCH (RBC) [Entitic mass] 31.0 pg Normal 26.7-34.0 [facility] Comment on above: Performed By: #### P T #### [facility] [address] [place] [address] Dr. Tg Fierro MCHC (RBC) [Mass/Vol] 32.5 g/dL Normal 29.9-35.2 [facility] Comment on above: Performed By: #### P T #### [facility] [address] [place] [address] Dr. Tg Fierro MCV (RBC) [Entitic vol] 95.4 fL Normal 81.0-99.0 [facility] Comment on above: Performed By: #### P T #### [facility] [address] [place] [address] Dr. Tg Fierro MONO # 0.5 103/ul Normal 0.3-0.8 [facility] Comment on above: Performed By: #### P T #### [facility] [address] [place] [address] Dr. Tg Fierro Monocytes/100 WBC (Bld) 8.0 % Normal 1.7-12.0 [facility] Comment on above: Performed By: #### P T #### [facility] [address] [place] [address] Dr. Tg Fierro NEUT # 3.3 103/ul Normal 1.4-6.5 [facility] Comment on above: Performed By: #### P T #### [facility] [address] [place] [address] Dr. Tg Fierro Neutrophils/100 WBC (Bld) 49.5 % Normal 43.0-75.0 [facility] Comment on above: Performed By: #### P T #### [facility] [address] [place] [address] Dr. Tg Fierro Platelet mean volume (Bld) [Entitic vol] 8.7 fL Critically low 9.5-13.5 [facility] Comment on above: Performed By: #### P T #### [facility] [address] [place] [address] Dr. Tg Fierro PLT 276 103/ul Normal 150-450 [facility] Comment on above: Performed By: #### P T #### [facility] [address] [place] [address] Dr. Tg Fierro RBC 4.13 106/ul Critically low 4.20-5.40 [facility] Comment on above: Performed By: #### P T #### [facility] [address] [place] [address] Dr. Tg Fierro WBC 6.7 103/ul Normal 4.0-11.0 [facility] Comment on above: Performed By: #### P T #### [facility] [address] [place] [address] Dr. Tg Fierro GLYCOHEMOGLOBIN A1Con 2021 ADA RECOMMENDATION SEE BELOW Normal [facility] Comment on above: Result Comment: ADA RECOMMENDED LIMIT 4.0 - 6.0 ADA THERAPEUTIC TARGET < 7.0 ACTION SUGGESTED > 7.0 Performed By: #### A 1C #### [facility] [address] [place] [address] Dr. Tg Fierro Glucose [Mass/Vol] 151 mg/dL Normal [facility] Comment on above: Performed By: #### A 1C #### [facility] [address] [place] [address] Dr. Tg Fierro HbA1c (Bld) [Mass fraction] 6.9 % Critically high 4.5-6.2 [facility] Comment on above: Performed By: #### A 1C #### [facility] [address] [place] [address] Dr. Tg Fierro PROF 14(COMP METB)on 022 Albumin [Mass/Vol] 3.8 g/dL Normal 3.4-5.0 [facility] Comment on above: Performed By: #### P T #### [facility] [address] [place] [address] Dr. Tg Fierro Albumin/Globulin [Mass ratio] 1.3 {ratio} Normal [facility] Comment on above: Performed By: #### P T #### [facility] [address] [place] [address] Dr. Tg Fierro ALP [Catalytic activity/Vol] 43 U/L Critically low 46-116 [facility] Comment on above: Performed By: #### P T #### [facility] [address] [place] [address] Dr. Tg Fierro ALT [Catalytic activity/Vol] 19 U/L Normal 14-59 [facility] Comment on above: Performed By: #### P T #### [facility] [address] [place] [address] Dr. Tg Fierro Anion gap [Moles/Vol] 13.7 mmol/L Normal [facility] Comment on above: Performed By: #### P T #### [facility] [address] [address] [address] Tg Fierro AST [Catalytic activity/Vol] 11 U/L Critically low 15-37 [facility] Comment on above: Performed By: #### P T #### [facility] [address] [address] [address] Tg Fierro Bilirubin [Mass/Vol] 0.4 mg/dL Normal 0.2-1.0 [facility] Comment on above: Performed By: #### P T #### [facility] [address] [place] [address] Dr. Tg Fierro Calcium [Mass/Vol] 9.1 mg/dL Normal 8.5-10.1 [facility] Comment on above: Performed By: #### P T #### [facility] [address] [address] [address] Tg Fierro Chloride [Moles/Vol] 104 mmol/L Normal 98-107 [facility] Comment on above: Performed By: #### P T #### [facility] [address] [place] [address] Dr. Tg Fierro CO2 [Moles/Vol] 28.5 mmol/L Normal 21.0-32.0 [facility] Comment on above: Performed By: #### P T #### [facility] [address] [place] [address] Dr. Tg Fierro Creatinine [Mass/Vol] 0.77 mg/dL Normal 0.55-1.02 [facility] Comment on above: Performed By: #### P T #### [facility] [address] [address] [address] Tg Fierro EGFR-AF KENYAN >60 Normal >=60 [facility] Comment on above: Performed By: #### P T #### [facility] [address] [place] [address] Dr. Tg Fierro EGFR-NON AF KENYAN >60 Normal >=60 [facility] Comment on above: Performed By: #### P T #### [facility] [address] [address] [address] Tg Fierro Globulin (S) [Mass/Vol] 3.0 g/dL Normal [facility] Comment on above: Performed By: #### P T #### [facility] [address] [address] [address] Tg Fierro Glucose [Mass/Vol] 124 mg/dL Critically high 74-[address] [facility] Comment on above: Performed By: #### P T #### [facility] [address] [address] [address] Tg Fierro Potassium [Moles/Vol] 4.2 mmol/L Normal 3.5-5.1 [facility] Comment on above: Performed By: #### P T #### [facility] [address] [place] [address] Dr. Tg Fierro Protein [Mass/Vol] 6.8 g/dL Normal 6.4-8.2 [facility] Comment on above: Performed By: #### P T #### [facility] [address] [place] [address] Dr. Tg Fierro Sodium [Moles/Vol] 142 mmol/L Normal 136-145 [facility] Comment on above: Performed By: #### P T #### [facility] [address] [place] [address] Dr. Tg Fierro Urea nitrogen [Mass/Vol] 12.0 mg/dL Normal 7.0-18.0 [facility] Comment on above: Performed By: #### P T #### [facility] [address] [place] [address] Dr. Tg Fierro Urea nitrogen/Creatinine [Mass ratio] 15.6 mg/mg Normal [facility] Comment on above: Performed By: #### P T #### [facility] [address] [place] [address] Dr. Tg Fierro SED RATE [facility] 2021 SED RATE 8 mm/hr Normal <=30 [facility] Comment on above: Performed By: #### C MP #### [facility] [address] [address] [address] Tg MCKEON Quick Testingon 2020 Result Positive [facility] Other Vital Signs Date Time Vital Sign Value Performing Clinician Facility 04-15-2024 14:16-0400 Body height 160 cm Jayme Perez MD Work Phone: [facility] 04-15-2024 14:16-0400 Body mass index (BMI) [Ratio] 21.79 kg/m2 Jayme Perez MD Work Phone: [facility] 04-15-2024 14:16-0400 Body weight 55.79 kg Jayme Perez MD Work Phone: [facility] 04-15-2024 14:16-0400 Diastolic blood pressure 70 mm[Hg] Jayme Perez MD Work Phone: [facility] 04-15-2024 14:16-0400 Heart rate 87 /min Jayme Perez MD Work Phone: [facility] 04-15-2024 14:16-0400 SaO2% (BldA) [Mass fraction] 98 % Jayme Perez MD Work Phone: [facility] 04-15-2024 14:16-0400 Systolic blood pressure 120 mm[Hg] Jayme Perez MD Work Phone: [facility] 10-14-2023 09:09-0400 Body temperature 98.6 [degF] [place] [facility] 10-14-2023 09:09-0400 Diastolic blood pressure 61 mm[Hg] [place] [facility] 10-14-2023 09:09-0400 Heart rate 80 /min [place] [facility] 10-14-2023 09:09-0400 Respiratory rate 16 /min [place] [facility] 10-14-2023 09:09-0400 Systolic blood pressure 115 mm[Hg] [place] [facility] 08-13-2023 10:47-0500 Blood Pressure Location Renato SANTACRUZ [facility] 08-13-2023 10:47-0500 Diastolic blood pressure 62 mm[Hg] Renato SANTACRUZ [facility] 08-13-2023 10:47-0500 Heart rate 82 /min Renato SANTACRUZ [facility] 08-13-2023 10:47-0500 Respiratory rate 16 /min Renato SANTACRUZ [facility] 08-13-2023 10:47-0500 Systolic blood pressure 105 mm[Hg] Renato SANTACRUZ [facility] 08-07-2023 09:48-0500 Body height 160 cm Jayme Perez MD Work Phone: [facility] 08-07-2023 09:48-0500 Body mass index (BMI) [Ratio] 24.45 kg/m2 Jayme Perez MD Work Phone: [facility] 08-07-2023 09:48-0500 Body weight 62.6 kg Jayme Perez MD Work Phone: [facility] 08-07-2023 09:48-0500 Heart rate 57 /min Jayme Perez MD Work Phone: [facility] 08-07-2023 09:48-0500 SaO2% (BldA) [Mass fraction] 98 % Jayme Perez MD Work Phone: [facility] 07-25-2023 09:20-0500 Body height 160.02 cm Lou Glover Other [facility] Other 07-25-2023 09:20-0500 Body mass index (BMI) [Ratio] 23.91 kg/m2 Lou Glover Other [facility] Other 07-25-2023 09:20-0500 Body temperature 97.7 [degF] Lou Glover Other [facility] Other 07-25-2023 09:20-0500 Body weight 61.24 kg Lou Glover Other [facility] Other 07-25-2023 09:20-0500 Diastolic blood pressure 74 mm[Hg] Lou Glover Other [facility] Other 07-25-2023 09:20-0500 Respiratory rate 18 /min Lou Glover Other [facility] Other 07-25-2023 09:20-0500 SaO2% (BldA) [Mass fraction] 96 % Lou Glover Other [facility] Other 07-25-2023 09:20-0500 Systolic blood pressure 120 mm[Hg] Lou Glover Other [facility] Other 03-26-2023 13:15-0400 Body height 160.02 cm MD Jayme Perez Work Phone: [facility] 03-26-2023 13:15-0400 Body temperature 98.2 [degF] MD Jayme Perez Work Phone: [facility] 03-26-2023 13:15-0400 Body weight 66 kg MD Jayme Perez Work Phone: [facility] 03-26-2023 13:15-0400 Diastolic blood pressure 71 mm[Hg] MD Jayme Perez Work Phone: [facility] 03-26-2023 13:15-0400 Heart rate 87 /min MD Jayme Perez Work Phone: [facility] 03-26-2023 13:15-0400 Respiratory rate 16 /min MD Jayme Perez Work Phone: [facility] 03-26-2023 13:15-0400 SaO2% (BldA) [Mass fraction] 97 % MD Jayme Perez Work Phone: [facility] 03-26-2023 13:15-0400 Systolic blood pressure 117 mm[Hg] MD Jayme Perez Work Phone: 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; Type 2 diabetes [...] encounter procedure MD Jayme Perez Work Phone: [facility] [address] Work Phone: Start: 03-31-2024 End: 03-31-2024 ambulatory MD Jayme Perez Work Phone: [facility] [facility] Work Phone: Start: 12-31-2023 End: 12-31-2023 ambulatory FELICIA FARMER Not Available Start: 10-14-2023 End: 10-15-2023 ambulatory Williams Rubi SHEPHERD Facility:[facility] Start: 10-14-2023 End: 10-14-2023 Patient encounter procedure Williams Rubi SHEPHERD [facility] Start: 09-01-2023 End: 09-01-2023 ambulatory FELICIA FARMER Not Available Start: 08-20-2023 Clinisync Result Encounter Generic External Data Provider [facility] External Department Unsolicited Start: 08-20-2023 Clinisync Result Encounter Generic External Data Provider [facility] External Department Unsolicited Start: 08-14-2023 End: 08-15-2023 ambulatory Renato SANTACRUZ Facility:[id number] Start: 08-13-2023 End: 08-14-2023 ambulatory Renato SANTACRUZ Facility:[facility] Start: 08-13-2023 End: 08-13-2023 Patient encounter procedure Renato SANTACRUZ [facility] Start: 08-07-2023 End: 08-07-2023 Office outpatient visit 25 minutes Jayme Perez MD Work Phone: [facility] Comment on above: Chronic diastolic he art failure (CMS/HCC) (Primary Dx); 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 (CMS/HCC); Type 2 diabetes mellitus with stage 3a chronic kidney disease, without long-term current use of insulin (HCC) (CMS/HCC); Stage 3a chronic kidney disease (HCC) (CMS/HCC); Microalbuminuria; Former smoker; 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, adult; 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; Psoriatic arthropathy (CMS/HCC); Gastroesophageal reflux disease without esophagitis Start: 08-07-2023 End: 08-07-2023 ambulatory JAYME PEREZ Not Available Start: 07-30-2023 End: 07-30-2023 ambulatory JAYME PEREZ Not Available Start: 07-25-2023 End: 07-25-2023 ambulatory Lou Glover Other [facility] Other Start: 07-25-2023 Office outpatient vi sit 25 minutes Lou Glover [facility] Start: 07-10-2023 End: 07-10-2023 ambulatory FELICIA D ZAHLER Not Available Start: 07-02-2023 End: 07-02-2023 ambulatory FELICIA D ZAHLER Not Available Start: 06-25-2023 End: 06-25-2023 ambulatory FELICIA D ZAHLER Not Available Start: 06-18-2023 End: 06-18-2023 ambulatory FELICIA D CORETTAHLER Not Available Start: 04-07-2023 End: 04-07-2023 Departed Referred MD Jayme Perez Work Phone: [facility] Start: 04-07-2023 End: 04-08-2023 ambulatory MD Jayme Perez Work Phone: [facility] Work Phone: Start: 03-26-2023 End: 03-26-2023 Patient encounter procedure MD Jayme Perez Work Phone: [facility] Work Phone: Start: 03-20-2023 End: 03-21-2023 ambulatory Williams SHEPHERD Facility[place] [place] Start: 03-20-2023 End: 03-20-2023 Lab Drop off Williams SHEPHERD [facility] Start: 03-20-2023 End: 03-20-2023 Patient encounter procedure Williams SHEPHERD [facility] Start: 02-03-2023 End: 02-04-2023 ambulatory Williasm SHEPHERD Facility:[facility] Start: 11-11-2022 End: 12-11-2022 [...] 05-21-2021 End: 05-21-2021 ambulatory Astrid Baker Other [facility] Other Start: 05-21-2021 Office outpatient vi sit [...] 12-30-2025 Glaucoma screening Diabetes: R etinopathy Screening [facility] Start: 05-19-2025 Glaucoma screening Diabetes: R etinopathy Screening [facility] Start: 10-14-2024 End: 04-15-2025 T3, reverse T3, reverse Lab Routine Chronic fatigue Expected: 10/14/2024 (Approximate), Expires: 04/15/2025 [facility] Comment on above: Expected: 10/14/2024 (Approximate), Expires: 04/15/2025 Start: 10-14-2024 End: 04-15-2025 Thyrotropin [Units/volume] in Serum or Plasma TSH Lab Routine Chronic fatigue Expected: 10/14/2024 (Approximate), Expires: 04/15/2025 [facility] Comment on above: Expected: 10/14/2024 (Approximate), Expires: 04/15/2025 Start: 10-14-2024 End: 04-15-2025 Thyroxine (T4) free [Mass/volume] in Serum or Plasma T4, free Lab Routine Chronic fatigue Expected: 10/14/2024 (Approximate), Expires: 04/15/2025 [facility] Comment on above: Expected: 10/14/2024 (Approximate), Expires: 04/15/2025 Start: 10-14-2024 End: 04-15-2025 Triiodothyronine (T3) [Mass/volume] in Serum or Plasma T3 Lab Routine Chronic fatigue Expected: 10/14/2024 (Approximate), Expires: 04/15/2025 [facility] Work Phone: Comment on above: Expected: 10/14/2024 (Approximate), Expires: 04/15/2025 Start: 10-14-2024 End: 04-15-2025 Triiodothyronine (T3) Free [Mass/volume] in Serum or Plasma T3, free Lab Routine Chronic fatigue Expected: 10/14/2024 (Approximate), Expires: 04/15/2025 [facility] Comment on above: Expected: 10/14/2024 (Approximate), Expires: 04/15/2025 Start: 08-04-2024 End: 08-04-2024 Patient encounter procedure 08/04/2024 1:00 PM EST Office Visit [facility] [address] [place] [phone] Felicia Farmer, DO [address] [place] [address] [facility] Start: 07-12-2024 ambulatory Ambulatory Facility:[facility] Start: 05-22-2024 Medicare Annual Well ness (AWV) Medicare Annual Wellness (AWV) [facility] Start: 04-15-2024 End: 04-15-2024 Patient encounter procedure 04/15/2024 2:30 PM EDT Office Visit [facility] [address] [phone] Jayme Perez MD [address] [place] [address] (Fax) [facility] Start: 03-14-2024 Influenza vaccination Influenza Vacc ine (#1) [facility] Start: 10-26-2023 Urine screening for protein Diabetes: Urine Protein Screening [facility] Start: 09-01-2023 End: 09-01-2023 Patient encounter procedure 09/01/2023 10:30 AM EST Office Visit [facility] [address] [place] [phone] Felicia Farmer DO [address] [place] [address] [facility] Start: 05-06-2023 Hemoglobin A1c measurement Sharmin betes: Hemoglobin A1C [facility] Start: 04-07-2023 Abdomen endoscopy OR Cysto/Retro/Stent/Ston e/Holmium Laser (Right) [facility] Start: 03-14-2023 Influenza vaccination Influenza Vacc ine (#1) [facility] Start: 1951 Pneumococcal Vaccine : 65+ Years (1 - PCV) Pneumococcal Vaccine: 65+ Years (1 - PCV) [facility] Start: 1951 Pneumococcal Vaccine : 65+ Years (1 of 2 - PCV) Pneumococcal Vaccine: 65+ Years (1 of 2 - PCV) [facility] Healthcare Immunizations Immunization Date Immunization Notes Care Provider Fa darek NEGATED: Highlighted row has not occurred!08-13-2023 influenza virus vaccine, unspecified formulation Renato SANTACRUZ [facility] NEGATED: Highlighted row has not occurred!08-13-2023 SARS-CoV-2 mRNA (tozinameran 5y-11y) vaccine Renato SANTACRUZ [facility] NEGATED: Highlighted row has not occurred!09-21-2019 influenza virus vaccine, live, attenuated, for intranasal use [employer] [facility] NEGATED: Highlighted row has not occurred!08-20-2019 influenza virus vaccine, live, attenuated, for intranasal use [employer] [facility] Payers Date Payer Category Payer Self-pay [id number] 2023 Private Health Insurance [employer] A ETNA SENIOR SUPPLEMENT [id number] 2023-Present [address] [address] [place] [address] Supplement [id number] 2022 Unknown [employer] [id number] 2022-Present [address] [address] [place] [address] [id number] 2022 Medicare [id number] 2002 Medicare MEDICARE MEDICAR E PART B [id number] 2002-[place] [address] Medicare [id number] 1959 Medicare [id number] 2.16.840.1.905181.19 1959 Unknown [id number] 1946 Unknown [id number] 2.16.840.1.455068.3.579 .2.593 1946 Unknown [id number] 2.16.840.1.713183.3.579 .2.593 1946 Unknown [id number] 2.16.840.1.291019.3.579 .2.593 1946 Unknown [id number] 2.16.840.1.649586.3.579 .2.593 1946 Unknown [id number] 2.16.840.1.632858.3.579 .2.593 1946 Unknown [id number] 2.16.840.1.442833.3.579 .2.593 1946 Unknown [id number] 2.16.840.1.739625.3.579 .2.593 1946 Unknown [id number] 2.16.840.1.949633.3.579 .2.593 1946 Unknown [id number] 2.16.840.1.922619.3.579 .2.593 1946 Unknown [id number] 2.16.840.1.216032.3.579 .2.593 1946 Unknown [id number] 2.16.840.1.100080.3.579 .2.593 1946 Unknown [id number] 2.16.840.1.065697.3.579 .2.593 1946 Unknown [id number] 2.16.840.1.482593.3.579 .2.593 1946 Unknown [id number] 2.16.840.1.311414.3.579 .2.727 1946 Unknown [id number] 2.16.840.1.540541.3.579 .2.727 1946 Unknown [id number] 2.16.840.1.152950.3.579 .2.727 1946 Unknown [id number] 2.16.840.1.708313.3.579 .2.72 1946 Unknown [id number] 2.16.840.1.399577.3.579 .2.727 1946 Unknown [id number] 2.16.840.1.161645.3.579 .2.727 1946 Unknown [id number] 2.16.840.1.071582.3.579 .2.727 1946 Unknown [id number] 2.16.840.1.085798.3.579 .2.125 1946 Unknown [id number] 2.16.840.1.978804.3.579 .2.125 1946 Unknown [id number] 2.16.840.1.240523.3.579 .2.125 1946 Unknown [id number] 2.16.840.1.625783.3.579 .2.125 1946 Unknown [id number] 2.16.840.1.614177.3.579 .2.125 1946 Unknown [id number] 2.16.840.1.450703.3.579 .2.125 1946 Unknown [id number] 2.16.840.1.672678.3.579 .2.125 1946 Unknown [id number] 2.16.840.1.886232.3.579 .2.1259 1946 Unknown [id number] 2.16.840.1.542155.3.579 .2.125 Unknown [id number] 2.16.840.1.232627.3.579 .2.531 Social History Date Type Detail Facility Sex Assigned At [facility] Other Start: 02-03-2023 End: 04-15-2024 Tobacco smoking status Ex-smoker (finding) [facility] Tobacco smoking status Never [facility] Start: 12-11-2022 End: 04-08-2024 Sex Assigned At Female [facility] Start: 1945 Sex Assigned At Female [facility] End: 07-14-1986 History of tobacco use [...] 10-14-2023 Functional Status N/A [facility] 08-13-2023 Functional Status N/A [facility] Clinical Notes 02-21-2022 to 04-15-2024 Jayme Perez MD - 04/15/2024 2:30 PM Saud Perez MD - 08/07/2023 10:00 AM EST [...] problem, stable, comanaged with Cardiology. Asymptomatic. 2. FDC current use of anticoagulant Chronic problem, stable, [...] I discussed with the patient or their housing management representative, their fatigue issues. We discussed how [...] tablet; Refill: 0 documented in this encounter [facility] 10-14-2023 Hospital Discharge instructions Patient Education [...] include: ?8 oz (237 mL) of milk, cygsfgr-zsgwpanhcukp-udyqf milk, and calcium-fortifiedfruit juice. Calcium-fortified means that [...] ?Spinach (cooked), rhubarb, beets, sweet potatoes, and Trinidadian chard. ?Peanuts. ?Potato chips, serbian fries, and baked potatoes with skin on. ?Nuts and nut products. ?Chocolate. If you regularly take a diuretic medicine, make sure to eat at least 1 or 2 servings of fruits or vegetables that are high in potassium each day. These include: ?Avocado. ?Banana. ?Chisago, prune, carrot, or tomato juice. ?Baked potato. [...] magnesium, fish oil, or vitamin B6. Take yfwd-ufb-seuyjfv and prescription medicines only as told by [...] Casseroles. Pizza. Lasagna. Frozen meals. Potato chips. Wallisian fries. The items listed above may not [...] provider. Document Revised: 10/10/2022 Document Reviewed: 10/10/2022 [employer] Patient Education 2022 [employer]. Follow Up Care 08/13/2023 10:19:44 With:CORA AGUIAR, Williams Venegas, URL Address: [address] [place], [place] [id number]- When: Unknown [facility] 08-13-2023 Hospital Discharge instructions Patient Education [...] including vitamins, herbs, eye drops, creams, and bvtw-ofv-edinlbs medicines. Any problems you or family members [...] provider tells you to take them. ?Taking spon-quz-minnlkv medicines, vitamins, herbs, and supplements. Eating and [...] provider. Document Revised: 11/06/2022 Document Reviewed: 03/04/2022 [employer] Patient Education 2022 [employer]. Follow Up Care 08/12/2023 14:37:00 With:ANGELITO AGUIAR, Renato Arzola, URL Address: [facility] [address], [place] [address] [phone] When: Unknown Comments:sched ureteroscopyf/u w/ GPC scheduled 10/14/23 [facility] 08-07-2023 History of Present illness Narrative [...] 0.55 - 1.02 mg/dL Final TBH EGFR-AF KENYAN 07/22/2023 >60 >=60 Final TBH EGFR-NON AF KENYAN 07/22/2023 55 (L) >=60 Final BUN CREATININE [...] cardiovascular disease. Former smoker 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, adult FDC current use of anticoagulant Chronic problem, that is monitored monthly, and be seen in the monthly INR results. documented in this encounter [facility] 07-25-2023 Evaluation note Encounter Date [...] care as directed rx of steroid and Conrad, cool mist humidification. May use Tylenol as directed. Immediate eval for signs of respiratory distress, difficulty breathing poor PO intake, signs of dehydration, fever, or other concerning symptoms. Otherwise, follow up with PCP in 2-3 days. Patient verbalizes understanding and is agreeable to treatment plan. Patient sent home in stable condition. [facility] Other 08-11-2022 NotePROCEDURE: XR FOOT LT [...] Date:07/12/2024 10:45:00 AM Scheduled Provider:Williams SHEPHERD MD Location[place] [place] [facility] Appointment Type:URO Office Visit [facility] Evaluation + Plan note Future Appointments Appointment Date:07/12/2024 10:45:00 AM Scheduled Provider:Williams SHEPHERD MD Location:[facility] Appointment Type:URO Office Visit Diagnostic Tests Pending * Calculi Analysis [facility] Future [facility]ments Appointment Date:10/14/2023 09:15:00 AM Scheduled Provider:Williams SHEPHERD MD Location:[facility] [place] [facility] Appointment Type:URO Office Visit Appointment Date:07/12/2024 10:45:00 AM Scheduled Provider:Williams SHEPHERD MD Location:[facility] Appointment Type:URO Office Visit [facility] evaluation noteNort rSmart Other evaluation noteNo assessment information available [facility] Work Phone: evaluation note* Diagnosis Chronic diastolic heart failure (CMS/HCC)- Primary Chronic diastolic heart failure 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 (CMS/HCC) Atrial fibrillation Type 2 diabetes mellitus with stage 3a chronic kidney disease, without long-term current use of insulin (HCC) ([facility]/HCC) Stage 3a chronic kidney disease (HCC) (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 Type 2 diabetes mellitus with stage 3a chronic kidney disease, without long-term current use of insulin (HCC) (CMS/HCC) Stage 3a chronic kidney disease (HCC) (CMS/HCC) Microalbuminuria Proteinuria Unexplained weight loss Loss of weight Chronic fatigue Other malaise and fatigue Sleep arousal disorder documented in this encounter [facility] - [facility] Other History general Narrative - Reported* Type Description Date Medical History Arthritis Medical History diabetes mallitus Surgical History cataract surgery [facility] Other Hospital course Narrative No data available for this section [facility] Discharge instructions No data available for this section [facility] Progress note No data available for this section [facility] Summary Purpose Family History Relationship Condition Age [...] and content) DATE CREATED AUTHOR 12/20/2022 [facility] DATE CREATED AUTHOR AUTHOR'S ORGANIZ ATION 10/15/2023 [facility] DATE CREATED AUTHOR AUTHOR'S ORGANIZ ATION 04/10/2024 [facility] DATE CREATED AUTHOR AUTHOR'S ORGANIZ ATION 04/17/2024 [facility] EPIC Patient Care team informatio n (unrecognized section and content) Team Status: Active Member Role Status Dates Jayme Perez MD Primary Care Provider Active Team Status: Inactive Member Role Status Dates Jayme Perez MD Primary Care Provider Active Williasm Shepherd MD Attending Provider Active Insurance Solicitor Relationship Specialty Start Date End Date Jayme Perez MD [address] [place] [address] PCP - General Family Medicine 11/25/22 Jayme Perez MD [address] [place] [address] (Fax) PCP - ACO Reach 12/05/22 Insurance Solicitor Relationship Specialty Start Date End Date Jayme Perez MD [address] [phone] (Fax) PCP - General Family Medicine 11/25/22 Jayme Perez MD [address] [phone] (Fax) PCP - ACO Reach 12/05/22 Team Status: Inactive Member Role Status Dates Jayme Perez MD Primary Care Provider Active Start: March 31, 2024 End: March 31, 2024 Radames Monteiro MD Attending Provider Active St art: March 31, 2024 End: March 31, 2024 Insurance Solicitor Relationship Specialty Start Date End Date Jayme Perez MD [address] [place] [address] (Fax) PCP - General Family Medicine 11/25/22 Jayme Perez MD [address] [phone] (Fax) PCP - ACO Reach 12/05/22 Felicia Farmer DO [address] [place] [address] Referring Physician Ophthalmology 08/21/23 Renato Santacruz MD [address] [phone] Referring Physician Urology 08/21/23 Radames Monteiro MD [address] [place] [phone] Referring Physician Rheumatology 08/21/23 Insurance Solicitor Relationship Specialty Start Date End Date Jayme Perez MD [address] [phone] (Fax) PCP - General Family Medicine 11/25/22 Jayme Perez MD [address] [phone] (Fax) PCP - ACO Reach 12/05/22 Felicia Farmer DO [address] [place] [phone] Referring Physician Ophthalmology 08/21/23 Renato Santacruz MD [address] [place] [address] Referring Physician Urology 08/21/23 Radames [facility]iro MD [address] [facility] [address] [place] [phone] Referring Physician Rheumatology 08/21/23 Insurance Solicitor Relationship Specialty Start Date End Date Jayme Perez MD [address] [place] [address] (Fax) PCP - General Family Medicine 11/25/22 Jayme Perez MD [address] [place] [address] (Fax) PCP - ACO Reach 12/05/22 Felicia Farmer DO [address] [place] [address] Referring Physician Ophthalmology 08/21/23 Renato Santacruz MD [address] [place], [place] [phone] Referring Physician Urology 08/21/23 Radames Monteiro MD [address] [facility] Professional building [address] [place] [phone] Referring Physician Rheumatology 08/21/23 Goals (unrecognized [...] BE BASED ON THE PRIMARY CLINICAL RECORDS. [facility]. provides no warranty or guarantee of the accuracy or completeness of information in this document.
[2024-05-14 10:35] LABS: INR 2.36
== END 2024-05-14 09:37 | disposition home or self-care (01) ==
LOC: LAB 09:36
PROVIDERS: PCP Family Medicine; Visit Provider Family Medicine
DX: Z51.81 Encounter for therapeutic drug level monitoring (principal); Z79.01 Long term (current) use of anticoagulants; I48.0 Paroxysmal atrial fibrillation
CPT/HCPCS: 36415; 85610

== ENCOUNTER 2024-06-16 13:52 | Outpatient (OUT) | payer MEDICARE, SELFPAY ==
[2024-06-16 14:17] LABS: Basophils Absolute Auto 0.1 10^3/uL (0.0-0.1); Basophils Percent Auto 0.8 % (0.2-2.0); Eosinophils Absolute Auto 0.2 10^3/uL (0.0-0.7); Eosinophils Percent Auto 3.2 % (0.9-7.0); Hematocrit 38.1 % (36.0-48.0); Hemoglobin 12.3 g/dL (12.0-16.0); Immature Granulocytes Abs Auto 0.03 10^3/uL (0.00-0.03); Immature Granulocytes Pct Auto 0.5 % (0.0-0.5); Lymphocytes Percent Auto 30.8 % (20.5-60.0); Mean Corpuscular HGB Conc 32.3 g/dL (29.9-35.2); Mean Corpuscular Hemoglobin 31.6 pg (26.7-34.0); Mean Corpuscular Volume 97.9 fL (81.0-99.0); Mean Platelet Volume 8.9 fL (9.5-13.5); Monocytes Absolute Auto 0.5 10^3/uL (0.3-0.8); Monocytes Percent Auto 7.7 % (1.7-12.0); Neutrophils Absolute Auto 3.8 10^3/uL (1.4-6.5); Platelet Count 300 10^3/uL (150-450); Red Blood Count 3.89 10^6/uL (4.20-5.40); Red Cell Distribution Width 14.5 % (11.0-15.0); White Blood Count 6.6 10^3/uL (4.0-11.0)
[2024-06-16 14:41] LABS: Alanine Aminotransferase 22 U/L (14-59); Albumin Globulin Ratio 1.2; Albumin Level 3.6 g/dL (3.4-5.0); Alkaline Phosphatase 55 U/L (46-116); Anion Gap 12.2; Aspartate Amino Transferase 12 U/L (15-37); BUN Creatinine Ratio 12.6; Bilirubin Total 0.3 mg/dL (0.2-1.0); Calcium 9.4 mg/dL (8.5-10.1); Chloride 105 mmol/L (98-107); Estimated GFR (African America 58 (>=60 mL/min/1.73m^2); Estimated GFR (Non-African Ame 48 (>=60 mL/min/1.73m^2); Globulin 2.9 g/dL; Glucose 186 mg/dL (74-106); Potassium 4.2 mmol/L (3.5-5.1); Sodium 141 mmol/L (136-145); Total Protein 6.5 g/dL (6.4-8.2)
[2024-06-16 14:42] LABS: Erythrocyte Sedimentation Rate 8 mm/hr (<=30)
== END 2024-06-16 13:53 | disposition home or self-care (01) ==
LOC: LAB 13:53
PROVIDERS: PCP Family Medicine; Visit Provider Internal Medicine Rheumatology
DX: I48.0 Paroxysmal atrial fibrillation (principal); Z51.81 Encounter for therapeutic drug level monitoring; Z79.01 Long term (current) use of anticoagulants; L40.59 Other psoriatic arthropathy; Z79.899 Other long term (current) drug therapy
CPT/HCPCS: 36415; 80053; 85025; 85610; 85652

== ENCOUNTER 2024-06-16 13:57 | Outpatient (OUT) | payer MEDICARE, SELFPAY ==
[2024-06-16 14:33] LABS: INR 3.06
== END 2024-06-16 13:58 | disposition home or self-care (01) ==
LOC: LAB 13:58
PROVIDERS: PCP Family Medicine; Visit Provider Family Medicine
DX: I48.0 Paroxysmal atrial fibrillation (principal); Z51.81 Encounter for therapeutic drug level monitoring; Z79.01 Long term (current) use of anticoagulants
CPT/HCPCS: 36415; 85610

== ENCOUNTER 2024-07-01 12:17 | Outpatient (OUT) | payer MEDICARE, SELFPAY ==
--- OUTSIDE RECORDS SUMMARY | 2024-07-01 12:24 | XMS_ITS | CCD ---
Author Organization [facility] Care Team Providers Care Locator Specialist Name Role Phone Astrid Baker Unavailable [...] Care Provider MD Williams Shepherd Attending Provider [phone] Lou Glover Unavailable Jayme Perez MD Primary Care Provider [phone] Jayme Perez MD Unavailable Renato SANTACRUZ Attending Unavailable Williams SHEPHERD Attending Unavailable Williams SHEPHERD Attending Unavailable Williams SHEPHERD Admitting Unavailable Williams SEHPHERD Attending Unavailable Renato SANTACRUZ Attending Unavailable Williams SHEPHERD Attending Unavailable Williams SHEPHERD Attending Unavailable Williams SHEPHERD Attending Unavailable MD Jayme Perez Primary Care Provider [phone] MD Radames Monteiro Attending Provider [phone] Radames Monteiro Admdiallo Unavailable Radames Monteiro Attending [...] Unknown (qualifier value) [facility] (1 source) sulfaSALAzine Drug Allergy rash [facility] Other (1 source) Ciprofloxacin Drug Allergy 03-30-20 13 [facility] Repository (2 sources) Ketorolac; Translations: [Toradol] Drug Allergy 03-30-20 13 [facility] Repository (2 sources) metroNIDAZOLE; Translations: [MetroGel] Drug Allergy 03-30-20 13 [facility] Repository (1 source) NSAIDs Drug allergy (disorder) 03-30-20 13 [facility] Repository (2 sources) pioglitazone; Translations: [Actos] Drug Allergy 03-30-20 13 [facility] Repository (1 source) Sulfonamides (Antibiotic) Drug allergy (disorder) 03-30-20 13 [facility] Repository (11 sources) Ketorolac; Translations: [ketorolac] Drug Allergy 03-26-20 23 Unknown (qualifier value), Nausea (finding) [facility] Comment on above: Severe (16 sources) Latex; Translations: [Latex] Drug allergy 01-07-20 23 Blister of skin AND/OR mucosa (finding) [facility] (13 sources) Non-steroidal anti-inflammatory agent; Translations: [NSAIDs] Drug allergy 02-19-20 22 Unknown (qualifier value) [facility] (17 sources) pioglitazone; Translations: [pioglitazone] Drug Allergy 01-07-20 23 Unknown (qualifier value) [facility] (5 sources) Sulfonamides (Antibiotic); Translations: [sulfa drugs] Drug allergy Unknown (qualifier value) [facility] (13 sources) metroNIDAZOLE; Translations: [Metronidazole] Drug Allergy 02-19-20 22 Redness of Skin [facility] (3 sources) Sulfonamides (Antibiotic); Translations: [Sulfa (Sulfonamide Antibiotics)] Allergy to substance 03-26-20 [facility] (3 sources) NSAIDS (Non-Steroidal Anti-Inflamma; Translations: [NSAIDS (Non-Steroidal Anti-Inflamma] Allergy to substance 03-26-20 Anaphylaxis, Anaphylaxis, rash [facility] (1 source) Non-steroidal anti-inflammatory agent Drug allergy [facility] Other (9 sources) Substance with sulfonamide structure and antibacterial mechanism of action (substance) Drug allergy 02-19-20 [facility] Other (8 sources) Ketorolac Allergy to substance 01-07-20 Nausea Only [facility] (8 sources) Hydrocodone Bit-Homatrop Mbr Propensity to adverse reactions 08-07-19 Dizziness [facility] (8 sources) Medical Adhesive Remover Drug Allergy 02-19-20 [facility] (1 source) Ciprofloxacin Drug Allergy 07-25-19 [facility] Repository (1 source) Ketorolac Drug Allergy 03-26-20 [facility] Repository (1 source) pioglitazone Drug Allergy 03-26-20 [facility] Repository Medications Current Medications Medication Drug Class(es) Dates Sig (Normalized) Sig (Original) acarbose 100 mg oral tablet (20 sources) alpha-Glucosidase Inhibitor Start: 08-17-2019 End: 10-12-2024 acarbose (Precose) 100 MG tablet Indications: Type 2 diabetes mellitus with stage 3a chronic kidney disease, without long-term current use of insulin (HCC) ([facility]/HCC) Take 1 tablet (100 mg) by [...] as needed orally every 6 hours Active [id number] 200 actuat albuterol 0.09 mg/actuat metered dose [...] Date: 09/19/20 Status: Ordered Cyanocobalamin-Liver Extract (Vitamin M77-Gtfob) Tablet (2 sources) Start: 03-26-2023 take 1 tablet by mouth once daily Cyanocobalamin-Liver Extract (Vitamin S81-Shnap) Tablet Active 1 TAB PO every day at March 26, 2023 12:00am Start: 03-26-2023 take 1 tablet by valdo th once daily Cyanocobalamin-Liver Extract (Vitamin R28-Bwbfj) Tablet Active 1 TAB PO every day at March 25, 2023 11:00pm dextromethorphan hydrobromide 1.5 mg/ml / pyrilamine maleate 1.5 mg/ml oral solution (1 source) Uncompetitive B-cixjem-H-aspartate Receptor Antagonist, Sigma-1 Agonist Start: 07-25-2023 take 10 mL by mouth every eight hours [place] DM 7.5-7.5 MG/5ML 10 mL Orally every 8 hours for 5 days Jul, Active esomeprazole 20 mg oral tablet (14 sources) Proton Pump Inhibitor Start: 08-17-2019 take 20 mg by mouth once daily Esomeprazole Magnesium Active 20 MG PO every day at March 26, 2023 12:00am Start: 08-17-2019 Nexium Oral, D aily, Refills(s) 0 Start Date: 08/17/19 Status: Ordered take 1 capsule by [facility] once daily esomeprazole (NexIUM) 20 MG [...] Spacer/Aero-Ho lding Chambers (BreatheRite Leonor Spacer Adult) [facility] Indications: Chronic obstructive pulmonary disease with acute exacerbation (CMS/HCC) 2 puffs 4 (four) times a day as needed (sob and cough) 1 each 07/16/2023 Active Start: 07-16-2023 Spacer/Aero-Ho lding Chambers (BreatheRite Leonor Spacer Adult) [facility] Indications: Chronic obstructive pulmonary disease with acute [...] Ordered Start: 08-12-2023 take 1 capsule by [facility] every twenty-four hours in the morning [...] source) half-way (current) use of anticoagulants; Translations: [LONG-TERM CURRNT USE ANTICOAGULANTS] Onset: 12-11-2022 Episodic Other aftercare (5 sources) Encounter for therapeutic drug level monitoring; Translations: [ENC THERAPEUTC DRUG LEVL MONITORING] Onset: 10-18-2022 Episodic Other aftercare (1 source) Other shelter (current) drug therapy; Translations: [OTH LONG-TERM CURRENT DRUG THERAPY] Onset: 10-31-2022 Episodic Other [...] (current) use of oral hypoglycemic drugs; Translations: [BI SPECIALIST USE ORAL HYPOGLYCEMIC DX] Onset: 08-12-2022 Episodic Other aftercare (1 source) 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; Translations: [LONG-TERM CURRENT USE OF INSULIN] Onset: 02-13-2022 Episodic Other aftercare (14 sources) Long-term current use of anticoagulant; Translations: [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] Onset: 07-21-2023 Episodic [...] Test Name Value Interpretation Reference Range [facility] CREATININEon 04-22-2024 Creatinine [Mass/Vol] 0.84 mg/dL 0.55 - 1.02 mg/dL [facility] GFR/1.73 sq M.predicted CKD-EPI (S/P/Bld) [Vol rate/Area] >60 >=60 mL/min/1.73m 2 [facility] EGFR-NON AF PARAGUAYAN >60 >=60 mL/min/1.73m 2 [facility] ALL CBC WITH AUTO DIFFon BASOPHILS ABSOLUTE AUTO 0.0 [facility] Basophils/100 WBC (Bld) 0.6 % 0.2 - 2.0 % [facility] Eosinophils/100 WBC (Bld) 2.1 % 0.9 - 7.0 % [facility] Erythrocyte distribution width (RBC) [Ratio] 14.1 % 11.0 - 15.0 % [facility] Hematocrit (Bld) [Volume fraction] 41.8 % 36.0 - 48.0 % [facility] Hemoglobin (Bld) [Mass/Vol] 13.5 g/dL 12.0 - 16.0 g/dL [facility] IMMATURE GRANULOCYTES ABS AUTO 0.02 [facility] Immature granulocytes/100 WBC (Bld) 0.3 % 0.0 - 0.5 % [facility] Interpretation and review of laboratory results Abnormal [facility] LYMPHOCYTES ABSOLUTE AUTO 2.1 [facility] Lymphocytes/100 WBC (Bld) 32.2 % 20.5 - 60.0 % [facility] MCH (RBC) [Entitic mass] 31.0 pg 26.7 - 34.0 pg [facility] MCHC (RBC) [Mass/Vol] 32.3 g/dL 29.9 - 35.2 g/dL [facility] MCV (RBC) [Entitic vol] 95.9 fL 81.0 - 99.0 fL [facility] MONOCYTES ABSOLUTE AUTO 0.5 [facility] Monocytes/100 WBC (Bld) 6.8 % 1.7 - 12.0 % [facility] NEUTROPHILS ABSOLUTE AUTO 3.8 [facility] Neutrophils/100 WBC (Bld) 58.0 % 43.0 - 75.0 % [facility] Platelet mean volume (Bld) [Entitic vol] 8.6 fL Low 9.5 - 13.5 fL [facility] TBH EO # 0.1 [facility] PLT 316 [facility] RBC 4.36 [facility] WBC 6.6 [facility] SRMCOH PROTHROMBIN TIME INR W/O COUMon 04-13-2024 Interpretation and review of laboratory results Abnormal [facility] PT Coag (PPP) [Time] 27.7 s High [facility] INR 2.90 [facility] Comment on above: DESIRED INR: 2.0-3.0 CONDITIONS NOT LISTED BELOW 2.5-3.5 FOR PROSTHETIC HEART VALVE REPLACEMENT 2.5-3.5 [facility] Magnesium [Mass/volume] in S fartun or PlasmaOrdered By: Radames Monteiro on 03-31-2024 Magnesium [Mass/Vol] 1.9 mg/dL Normal 1.9-2.7 [facility] Comment on above: Result Comment: PERF ORMED BY: [place] [address] PATHOLOGIST CRIMINAL PSYCHOLOGIST BERNIE GRAYSON M.D. Performed By: #### M G, PHOS #### [address] Phosphate [Mass/volume] in S fartun or PlasmaOrdered By: Radames Monteiro on 03-31-2024 Phosphate [Mass/Vol] 3.7 mg/dL Normal 2.5-4.5 [facility] Comment on above: Performed By: #### M VALENTINA Alcantara #### [facility] [address] [id number] [facility] Ambulatory Visit Summaryon 0 10-14-2023 Ambulatory Visit [...] Williams SHEPHERD MD Where: [facility] Ju [facility] Patient Educationon 10-14-19 Patient Education [...] Spinach (cooked), rhubarb, beets, sweet potatoes, and Guinean chard. ? Peanuts. ? Potato chips, uzbek fries, and baked potatoes with skin on. ? Nuts and nut products. ? Chocolate. ? If you regularly take a diuretic medicine, make sure to eat at least 1 or 2 servings of fruits or vegetables that are high in potassium each day. These include: ? Avocado. ? Banana. ? Clarkson, prune, carrot, or tomato juice. ? Baked [...] fish oil, or vitamin B6. ? Take yhgf-iad-hbwctoz and prescription medicines only as told by your health care provider. These include supplements. What foods sh (more content not included)... Normal [facility] Urology Office/Clinic Noteon 10-14-2023 Urology Office/Clinic Note Chief Complaint Pt is here for 3 month w/ met w/u & KUB HPI Staff 6 month follow up w/KUB Pt canceled Cysto/R retro/possible: ureteroscopy, laser, basket, stent placement 04/07/23 due to passing stones Pt was then seen at [facility] on 08/12/23 due to abdominal pain, pt [...] with voice recognition artificial intelligence software, specifically [employer] and or [employer] Substitutions may have occurred due to the inherent limitations of voice recognition and artificial intelligence software. 1. Ureteral stone with hydronephrosis (N13.2: Hydronephrosis with renal and ureteral calculous obstruction) [facility] ER visit 08/12/23 due to R flank [...] Information CORA AGUIAR, Williams Venegas, URL [address] [address]- Additional Instructions: 06/2024 with KUB Patient Education Dietary Guidelines to Help Prevent Kidney Stones I, Charisse Rutherford, personally scribed for Dr. Shepherd on 10/14/2023 09:33:56. Electronically signed by (more content not included)... [facility] Comment on above: Result Comment: Elec tronically Signed By: Williams SHEPHERD MD\.br\Date and Time Signed: 10/14/23 09:38 EDT\.br\Electronically Co-Signed By: Charisse Rutherford.br\Date and Time Co-Signed: 10/14/23 09:34 EDT RAD - MISCon 10-10-2023 RAD - MISC [id number]#1 .00TIFF [facility] Lab Reportson 08-27-2023 Lab Reports [id number]#1 .00TIFF [facility] Lab Reportson 08-25-2023 Lab Reports [id number]#1 .00TIFF [facility] Lab Reports [id number]#1 .00TIFF [facility] Lab Reportson 08-22-2023 Lab Reports [id number]#1 .00TIFF [facility] Lab Reportson 08-21-2023 Lab Reports [id number]#1 .00TIFF [facility] Lab Reports [id number]#1 .00TIFF [facility] ALL BUNon 08-20-2023 Urea nitrogen [Mass/Vol] 12.0 mg/dL 7.0 - 18.0 mg/dL [facility] ALL CARBON DIOXIDEon 024 CO2 [Moles/Vol] 30.1 mmol/L 21.0 - 32.0 mmol/L [facility] ALL CHLORIDEon 08-20-2023 Chloride [Moles/Vol] 104 mmol/L 98 - 107 mmol/L [facility] ALL PHOSPHOROUSon 08-20-2023 Phosphate [Mass/Vol] 4.1 mg/dL 2.6 - 4.7 mg/dL [facility] ALL SODIUMon 08-20-2023 Sodium [Moles/Vol] 141 mmol/L 136 - 145 mmol/L [facility] ALL URIC ACIDon 08-20-2023 Urate [Mass/Vol] 4.4 mg/dL 2.6 - 6.0 mg/dL [facility] CALCIUMon 08-20-2023 Calcium [Mass/Vol] 9.1 mg/dL 8.5 - 10.1 mg/dL [facility] No Panel Informationon 08-20 [facility] CREATININEon 08-20-2023 Creatinine [Mass/Vol] 0.86 mg/dL 0.55 - 1.02 mg/dL [facility] GFR/1.73 sq M.predicted CKD-EPI (S/P/Bld) [Vol rate/Area] >60 60 - PINF [facility] EGFR-NON AF PARAGUAYAN >60 60 - PINF [facility] Consent for Procedure/Surger yon 08-15-2023 Consent for Procedure/Surgery [id number]#1 .00TIFF Normal [facility] ED Note-Physicianon 08-15-19 ED Note-Physician [id number]#1. 00TIFF Normal [facility] Lab Reportson 08-15-2023 Lab Reports [id number]#1. 00TIFF Normal [facility] Lab Reports [id number]#1 .00TIFF Normal [facility] Lab Reports [id number]#1 .00TIFF Normal [facility] Operative Reporton Operative Report [id number]#1 .00TIFF Normal [facility] RAD - CT Reporton 08-15-2023 RAD - [address] Report [id number]#1. 00TIFF Everett Barth [facility] Ambulatory Visit Summaryon 0 08-13-2023 [...] AGUIAR, Williams Venegas Where: [facility] Ju Normal [address] [place] [address]- \.br\ You Need to Schedule the Following Appointments\.br \ Follow Up with ANGELITO AGUIAR, Renato Arzola, URL When: \.br\ Comments:\.br\ sched ureteroscopy\.br \ f/u w/ [facility] scheduled 10/14/23\.br\ Where:\.br\ [facility] [address]br\ [place] [address]-\.br\ [phone]\.br\ Medications\.br\ What How Much When Instructions\.br \ [...] including vitamins, herbs, eye drops, creams, and xnxi-tru-agfrjoq medicines.\.br\ ? \.br\ Any problems you or [...] you to take them.\.br\ ? \.br\ Taking vbwk-tff-uzsxgxb medicines, vitamins, herbs, and supplements.\.br \ Eating [...] may also have tests, such Barth [facility] Patient Educationon 08-13-19 Patient Education Nephrology [...] including vitamins, herbs, eye drops, creams, and lphs-xwr-fpfxedp medicines. ? Any problems you or family [...] tells you to take them. ? Taking jalk-vhw-eggyrbn medicines, vitamins, herbs, and supplements. Eating and [...] the pieces (more content not included)... Normal [facility] Urology Office/Clinic Noteon 08-13-2023 Urology Office/Clinic Note Chief Complaint Patient is here for follow up to [facility] ER HPI Staff Patient is here for f/u to [facility] ER on 08/12/23 due to [...] Hydronephrosis with renal and ureteral calculous obstruction) [facility] ER visit 08/12/23 due to R flank [...] See #1 4. 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 States she did not take this last night. Advised pt not to take her dose today either. Follow-up With When Contact Information ANGELITO AGUIAR, Renato Arzola, URL [facility] [address], [place] [address]- [phone] Additional Instructions: sched ureteroscopy f/u w/ [facility] scheduled 10/14/23 Patient Education Laser Therapy for Kidney Stones I, Amy Gallagher, personally scribed for Dr. Santacruz on 08/13/2023 11:35:03. . Documentation recorded by the scribe, Amy Gallagher, accurately reflects the services(s) I performed and decisions made by me. Authenticated by Dr. Santacruz on 08/13/2023 11:37:02. Problem List/Past Medical History [place] (more content not included)... Normal [facility] Comment on above: Result Comment: Elec tronically Signed By: Renato SANTACRUZ MD\.br\Date and Time Signed: 08/13/23 11:37 EST\.br\Electronically Co-Signed By: Amy Gallagher\.br\Date and Time Co-Signed: 08/13/23 11:35 EST COVID/FLU/RSV RT-PCRon 07-25 SARS-CoV-2 (COVID-19) RNA TREASURE+probe Ql (Unsp spec) Negative [facility] [place] Other COVID/FLU/RSV RT-PCR Negative [facility] [place] Other COVID/FLU/RSV RT-PCR Positive [facility] [place] Other Calculus Analysison 03-27-20 23 Calcium oxalate dihydrate Infrared spectroscopy (Stone) [Mass fraction] 100 % Invalid Interpretation Code [facility] Comment on above: Performed By: #### 1 [id number] ####[facility] [address] [place] [address] Color (Stone) Roper Invalid Interpretation Code [facility] Comment on above: Performed By: #### 1 [id number] ####[facility] [id number] [place] [address] Composition Comment Invalid Interpretation Code [facility] Comment on above: Result Comment: Perc entage (Represents the % composition) Performed By: #### 1 [id number] ####[facility] [address] [place] [address] Disclaimer: Comment Invalid Interpretation Code [facility] Comment on above: Result Comment: This test was developed and its performance characteristics determined by [facility]. It has not been cleared or approved by the Food and Drug Administration. Performed at: [facility] [address] [place], [place] [id number] PhD Silvestre Esquivel Performed By: #### 1 [id number] ####[facility] [id number] [place] [address] Laboratory comment Noam (Report) Comment Invalid Interpretation Code [facility] Comment on above: Result Comment: Coco goode questions regarding Calculi Analysis [facility] at: [phone]. Performed By: #### 1 [id number] ####[address] [address] Please Note: Comment Invalid Interpretation Code [facility] Comment on above: Result Comment: Calc javier report will follow via computer, mail or freight team associate delivery. Performed By: #### 1 [id number] ####[address] [place] [address] Size (Stone) [Entitic vol] 6x4 Invalid Interpretation Code [facility] Comment on above: Result Comment: Sing le piece received. Performed By: #### 1 [id number] ####[address] [place] [address] Specimen source subject Nom Comment Invalid Interpretation Code [facility] Comment on above: Result Comment: Not provided Performed By: #### 1 [id number] ####[facility] [address] [place] [address] Stone Photo Comment Invalid Interpretation Code [facility] Comment on above: Result Comment: Phot ograph will follow under a separate cover Performed By: #### 1 [id number] ####[facility] [address] [place] [address] Weight (Stone) 49 mg Invalid Interpretation Code [facility] Comment on above: Performed By: #### 1 [id number] ####[facility] [address] [place] [address] Lab Reportson 03-27-2023 Lab Reports [id number]#1. 00CD:127 Normal Barth [facility] Activated partial thrombopla stin time (aPTT) in platelet poor plasma by coagulation aOrdered By: Williams Shepherd on 03-26-2023 aPTT Coag (PPP) [Time] 35.9 s 25.1-36.5 [facility] Comment on above: A hematocrit value g reater than 55% may lead to inaccurate results in coagulation testing. Patients having hematocrit values >55% require a special collection tube for coagulation studies. Please contact the laboratory at [phone] for redraw instructions. Basophils Auto (Bld) [#/Vol] Ordered By: Williams Shepherd on 03-26-2023 Basophils (Bld) [#/Vol] 0.0 10*3/uL 0.0-0.2 [facility] Basophils/100 WBC Auto (Bld) Ordered By: Williams Shepherd on 03-26-2023 Basophils/100 WBC (Bld) 0.8 % . [facility] Calcium [Mass/volume] in Ser um or PlasmaOrdered By: Williams Shepherd on 03-26-2023 Calcium [Mass/Vol] 10.0 mg/dL 8.6-10.3 [facility] Carbon dioxide, total [Moles /volume] in Serum or PlasmaOrdered By: Williams Shepherd on 03-26-2023 CO2 [Moles/Vol] 30.0 mmol/L 21.0-31.0 [facility] Chloride [Moles/volume] in S fartun or PlasmaOrdered By: Williams Shepherd on 03-26-2023 Chloride [Moles/Vol] 104 mmol/L 98-107 [facility] Creatinine [Mass/volume] in Serum or PlasmaOrdered By: Williams Shepherd on 03-26-2023 Creatinine [Mass/Vol] 0.85 mg/dL 0.60-1.20 [facility] Eosinophils Auto (Bld) [#/Vo l]Ordered By: Williams Shepherd on 03-26-2023 Eosinophils (Bld) [#/Vol] 0.3 10*3/uL 0.0-0.45 [facility] Eosinophils/100 WBC Auto (Bl d)Ordered By: Williams Shepherd on 03-26-2023 Eosinophils/100 WBC (Bld) 4.3 % . [facility] Erythrocyte distribution wid th Auto (RBC) [Ratio]Ordered By: Williams Shepherd on 03-26-2023 Erythrocyte distribution width (RBC) [Ratio] 14.8 % 11.9-15.3 [facility] Glucose [Mass/volume] in Ser um or [...] [Volume fraction] 40.3 % 34.0-46.4 [facility] Hemoglobin [Mass/volume] in BloodOrdered By: Williams Shepherd on 03-26-2023 Hemoglobin (Bld) [Mass/Vol] 13.3 g/dL 11.8-15.4 [facility] INR in Platelet poor plasma by Coagulation assayOrdered By: Williams Shepherd on 03-26-2023 INR Coag (PPP) [Relative time] 2.3 {INR} [facility] Comment on above: INR Therapeutic Rang [...] (Bld) [#/Vol] 5.9 10*3/uL 3.8-11.6 [facility] Lymphocytes Auto (Bld) [#/Vo l]Ordered By: Williams Shepherd on 03-26-2023 Lymphocytes (Bld) [#/Vol] 2.2 10*3/uL 1.00-4.8 [facility] Lymphocytes/100 WBC Auto (Bl d)Ordered By: Williams Shepherd on 03-26-2023 Lymphocytes/100 WBC (Bld) 36.9 % . [facility] MCH Auto (RBC) [Entitic mass ]Ordered By: Williams Shepherd on 03-26-2023 MCH (RBC) [Entitic mass] 31.1 pg 24.7-34.3 [facility] MCHC Auto (RBC) [Mass/Vol]Or dered By: Williams Shepherd on 03-26-2023 MCHC (RBC) [Mass/Vol] 32.9 g/dL 32.0-35.0 [facility] MCV Auto (RBC) [Entitic vol] Ordered By: Williams Shepherd on 03-26-2023 MCV (RBC) [Entitic vol] 94.4 fL 80-100 [facility] Monocytes Auto (Bld) [#/Vol] Ordered By: Williams Shepherd on 03-26-2023 Monocytes (Bld) [#/Vol] 0.5 10*3/uL 0.0-0.8 [facility] Monocytes/100 WBC Auto (Bld) Ordered By: Williams Shepherd on 03-26-2023 Monocytes/100 WBC (Bld) 7.8 % . [facility] Neutrophils Auto (Bld) [#/Vo l]Ordered By: Williams Shepherd on 03-26-2023 Neutrophils (Bld) [#/Vol] 3.0 10*3/uL 1.8-7.7 [facility] Neutrophils/100 WBC Auto (Bl d)Ordered By: Williams Shepherd on 03-26-2023 Neutrophils/100 WBC (Bld) 50.2 % . [facility] No Panel InformationOrdered By: Williams Shepherd on 03-26-2023 Estimated GFR (CKD-EPI) > 60.0 mL/Min [facility] Creatinine Clearance (Chem N/A [facility] Nucleated erythrocytes [Pres ence] in Blood by Automated countOrdered By: Williams Shepherd on 03-26-2023 Nucleated RBC Auto Ql (Bld) 0.3 /100{WBC} 0-0.5 [facility] Platelet mean volume Auto (B ld) [Entitic vol]Ordered By: Williams Shepherd on 03-26-2023 Platelet mean volume (Bld) [Entitic vol] 7.1 fL 6.3-10.7 [facility] Platelets Auto (Bld) [#/Vol] Ordered By: Williams Shepherd on 03-26-2023 Platelets (Bld) [#/Vol] 363 10*3/uL 150-450 [facility] Potassium [Moles/volume] in Serum or PlasmaOrdered By: Williams Shepherd on 03-26-2023 Potassium [Moles/Vol] 5.0 mmol/L 3.5-5.1 [facility] Prothrombin time (PT)Ordered By: Williams Shepherd on 03-26-2023 PT Coag (PPP) [Time] 26.6 s 9.0-12.9 [facility] Comment on above: A hematocrit value g reater than 55% may lead to inaccurate results in coagulation testing. Patients having hematocrit values >55% require a special collection tube for coagulation studies. Please contact the laboratory at [phone] for redraw instructions. RBC Auto (Bld) [#/Vol]Ordere d By: Williams Shepherd on 03-26-2023 RBC (Bld) [#/Vol] 4.27 10*6/uL 3.60-5.00 [facility] Serum or plasma anion gap de terminationOrdered By: Williams Shepherd on 03-26-2023 Anion gap [Moles/Vol] 13.0 mmol/L 6.0-15.0 [facility] Sodium [Moles/volume] in Ser um or PlasmaOrdered By: Williams Shepherd on 03-26-2023 Sodium [Moles/Vol] 142 mmol/L 136-145 [facility] Urea nitrogen [Mass/volume] in Serum or PlasmaOrdered By: Williams Shepherd on 03-26-2023 Urea nitrogen [Mass/Vol] 12 mg/dL 7-25 [facility] WBC Auto (Bld) [#/Vol]Ordere d By: Williams Shepherd on 03-26-2023 WBC (Bld) [#/Vol] 5.9 10*3/uL 3.8-11.6 [facility] Consultation Noteon 03-17-20 Consultation Note [id number] .00CD:127 Normal [facility] Lab Reportson 02-12-2023 Lab Reports [id number] .00CD:127 Normal [facility] RAD - MISCon 02-12-2023 RAD - MISC [id number] .00CD:127 Normal [facility] RAD - CT Reporton 02-05-2023 RAD - CT Report [id number] .00CD:127 Normal [facility] RAD - MISCon 02-05-2023 RAD - MISC [id number] .00CD:127 Normal [facility] Ambulatory Visit Summaryon 0 02-03-2023 Ambulatory Visit [...] [facility] Patient Educationon 02-04-20 23 Patient Education Urology [...] these instructions at home: Medicines ? Take jmik-koa-jlcazam and prescription medicines only as told by [...] and follow (more content not included)... Normal [facility] Urology Office/Clinic Noteon 02-03-2023 Urology Office/Clinic Note Chief Complaint 16 month follow up w/ CT scan HPI Staff Pt is here today for 16 month follow up w/ CT scan done @[facility] on 01/15/23. CT scan shows partially obstructing [...] MD, URL [address] [place] [id number]- Additional Instructions: Patient Education Kidney Stones I, Fanny Bowen, personally scribed for Dr. Shepherd on 02/03/2023 12:04:03. . Documentation recorded by the scribe, Fanny Bowen, accurately reflects the services(s) I performed and decisions made by me. Authenticated by Dr. Shepherd on 02/03/2023 12:37:35. Portions of this record may have been created with voice recognition artificial intelligence software, specifically [employer] and or [employer] Substitutions may have occurred due to the inherent limitations of voice recognition and artificial intelligence software. 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 Normal [facility] Comment on above: Result Comment: Elec tronically Signed By: Williams SHEPHERD MD\.br\Date and Time Signed: 02/03/23 12:39 EDT\.br\Electronically Co-Signed By: Fanny Bowen\.br\Date and Time Co-Signed: 02/03/23 12:04 EDT PROTIMEon 12-02-2022 INR Coag (PPP) [Relative time] 3.62 {INR} Normal [facility] Comment on above: Performed By: #### P T #### [facility] [address] [place] [address] Dr. Tg Fierro INR GUIDELINES SEE BELOW Normal [facility] Comment on above: Result Comment: LAURENCE RED INR: 2.0 - 3.0 CONDITIONS NOT LISTED BELOW 2.5 - 3.5 FOR PROSTHETIC HEART VALVE REPLACEMENT 2.5 - 3.5 RECURRENT THROMBOSIS Performed By: #### P T #### [facility] [address] [place] [address] Dr. Tg Fierro PT Coag (PPP) [Time] 35.7 s Critically high 9.0-11.6 [facility] Comment on above: Performed By: #### P T #### [facility] [address] [place] [address] Dr. Tg Fierro PROTIMEon 11-11-2022 INR Coag (PPP) [Relative time] 1.90 {INR} Normal [facility] Comment on above: Performed By: #### P T #### [facility] [address] [place] [address] Dr. Tg Fierro INR GUIDELINES SEE BELOW Normal [facility] Comment on above: Result Comment: LAURENCE RED INR: 2.0 - 3.0 CONDITIONS NOT LISTED BELOW 2.5 - 3.5 FOR PROSTHETIC HEART VALVE REPLACEMENT 2.5 - 3.5 RECURRENT THROMBOSIS Performed By: #### P T #### [facility] [address] [place] [address] Dr. Tg Fierro PT Coag (PPP) [Time] 19.4 s Critically high 9.0-11.6 [facility] Comment on above: Performed By: #### P T #### [facility] [address] [place] [address] Dr. Tg Fierro CBC AUTO DIFFon 10-25-2022 BASO # 0.0 103/ul Normal 0.0-0.1 [facility] Comment on above: Performed By: #### P T #### [facility] [address] [place] [address] Dr. Tg Fierro Basophils/100 WBC (Bld) 0.5 % Normal 0.2-2.0 [facility] Comment on above: Performed By: #### P T #### [facility] [address] [place] [address] Dr. Tg Fierro EO # 0.2 103/ul Normal 0.0-0.7 [facility] Comment on above: Performed By: #### P T #### [facility] [address] [place] [address] Dr. Tg Fierro Eosinophils/100 WBC (Bld) 2.7 % Normal 0.9-7.0 [facility] Comment on above: Performed By: #### P T #### [facility] [address] [place] [address] Dr. Tg Fierro Erythrocyte distribution width (RBC) [Ratio] 13.4 % Normal 11.0-15.0 [facility] Comment on above: Performed By: #### P T #### [facility] [address] [place] [address] Dr. Tg Fierro Hematocrit (Bld) [Volume fraction] 40.7 % Normal 36.0-48.0 [facility] Comment on above: Performed By: #### P T #### [facility] [address] [place] [address] Dr. Tg Fierro Hemoglobin (Bld) [Mass/Vol] 13.2 g/dL Normal 12.0-16.0 [facility] Comment on above: Performed By: #### P T #### [facility] [address] [place] [address] Dr. Tg Fierro IG # 0.03 10e3/ul Normal 0.00-0.03 [facility] Comment on above: Performed By: #### P T #### [facility] [address] [place] [address] Dr. Tg Fierro IG % 0.5 % Normal 0.0-0.5 [facility] Comment on above: Performed By: #### P T #### [facility] [address] [place] [address] Dr. Tg Fierro LYMPH # 2.1 103/ul Normal 1.2-3.8 [facility] Comment on above: Performed By: #### P T #### [facility] [address] [place] [address] Dr. Tg Fierro Lymphocytes/100 WBC (Bld) 34.9 % Normal 20.5-60.0 [facility] Comment on above: Performed By: #### P T #### [facility] [address] [place] [address] Dr. Tg Fierro MANUAL DIFF REQ NO Normal [facility] Comment on above: Performed By: #### P T #### [facility] [address] [place] [address] Dr. Tg Fierro MCH (RBC) [Entitic mass] 30.5 pg Normal 26.7-34.0 [facility] Comment on above: Performed By: #### P T #### [facility] [address] [place] [address] Dr. Tg Fierro MCHC (RBC) [Mass/Vol] 32.4 g/dL Normal 29.9-35.2 [facility] Comment on above: Performed By: #### P T #### [facility] [address] [place] [address] Dr. Tg Fierro MCV (RBC) [Entitic vol] 94.0 fL Normal 81.0-99.0 [facility] Comment on above: Performed By: #### P T #### [facility] [address] [place] [address] Dr. Tg Fierro MONO # 0.4 103/ul Normal 0.3-0.8 [facility] Comment on above: Performed By: #### P T #### [facility] [address] [place] [address] Dr. Tg Fierro Monocytes/100 WBC (Bld) 7.1 % Normal 1.7-12.0 [facility] Comment on above: Performed By: #### P T #### [facility] [address] [place] [address] Dr. Tg Fierro NEUT # 3.2 103/ul Normal 1.4-6.5 [facility] Comment on above: Performed By: #### P T #### [facility] [address] [place] [address] Dr. Tg Fierro Neutrophils/100 WBC (Bld) 54.3 % Normal 43.0-75.0 [facility] Comment on above: Performed By: #### P T #### [facility] [address] [place] [address] Dr. Tg Fierro Platelet mean volume (Bld) [Entitic vol] 8.7 fL Critically low 9.5-13.5 [facility] Comment on above: Performed By: #### P T #### [facility] [address] [place] [address] Dr. Tg Fierro PLT 295 103/ul Normal 150-450 [facility] Comment on above: Performed By: #### P T #### [facility] [address] [place] [address] Dr. Tg Fierro RBC 4.33 106/ul Normal 4.20-5.40 [facility] Comment on above: Performed By: #### P T #### [facility] [address] [place] [address] Dr. Tg Fierro WBC 5.9 103/ul Normal 4.0-11.0 [facility] Comment on above: Performed By: #### P T #### [facility] [address] [place] [address] Dr. Tg Fierro PROF 14(COMP METB)on 023 Albumin [Mass/Vol] 3.8 g/dL Normal 3.4-5.0 [facility] Comment on above: Performed By: #### C MP #### [facility] [address] [place] [address] Dr. Tg Fierro Albumin/Globulin [Mass ratio] 1.2 {ratio} Normal [facility] Comment on above: Performed By: #### C MP #### [facility] [address] [place] [address] Dr. Tg Fierro ALP [Catalytic activity/Vol] 49 U/L Normal 46-116 [facility] Comment on above: Performed By: #### C MP #### [facility] [address] [place] [address] [address] Tg Fierro ALT [Catalytic activity/Vol] 21 U/L Normal 14-59 [facility] Comment on above: Performed By: #### C MP #### [facility] [address] [place] [address] [address] Tg Fierro Anion gap [Moles/Vol] 13.3 mmol/L Normal [facility] Comment on above: Performed By: #### C MP #### [facility] [address] [place] [address] [address] Tg Fierro AST [Catalytic activity/Vol] 14 U/L Critically low 15-37 [facility] Comment on above: Performed By: #### C MP #### [facility] [address] [place] [address] Dr. Tg Fierro Bilirubin [Mass/Vol] 0.5 mg/dL Normal 0.2-1.0 [facility] Comment on above: Performed By: #### C MP #### [facility] [address] [place] [address] Dr. Tg Fierro Calcium [Mass/Vol] 9.5 mg/dL Normal 8.5-10.1 [facility] Comment on above: Performed By: #### C MP #### [facility] [address] [place] [address] [address] Tg Fierro Chloride [Moles/Vol] 104 mmol/L Normal 98-107 [facility] Comment on above: Performed By: #### C MP #### [facility] [address] [place] [address] [address] Tg Fierro CO2 [Moles/Vol] 29.3 mmol/L Normal 21.0-32.0 [facility] Comment on above: Performed By: #### C MP #### [facility] [address] [place] [address] [address] Tg Fierro Creatinine [Mass/Vol] 0.93 mg/dL Normal 0.55-1.02 [facility] Comment on above: Performed By: #### C MP #### [facility] [address] [place] [address] [address] Tg Fierro EGFR-AF PARAGUAYAN >60 Normal >=60 [facility] Comment on above: Performed By: #### C MP #### [facility] [address] [place] [address] [address] Tg Fierro EGFR-NON AF PARAGUAYAN 59 mL/min/1.73m2 Critically low >=60 [facility] Comment on above: Performed By: #### C MP #### [facility] [address] [place] [address] [address] Tg Fierro Globulin (S) [Mass/Vol] 3.2 g/dL Normal [facility] Comment on above: Performed By: #### C MP #### [facility] [address] [place] [address] [address] Tg Fierro Glucose [Mass/Vol] 186 mg/dL Critically high 74-106 [facility] Comment on above: Performed By: #### C MP #### [facility] [address] [place] [address] [address] Tg Fierro Potassium [Moles/Vol] 4.6 mmol/L Normal 3.5-5.1 [facility] Comment on above: Performed By: #### C MP #### [facility] [address] [place] [address] [address] Tg Fierro Protein [Mass/Vol] 7.0 g/dL Normal 6.4-8.2 [facility] Comment on above: Performed By: #### C MP #### [facility] [address] [place] [address] [address] Tg Fierro Sodium [Moles/Vol] 142 mmol/L Normal 136-145 [facility] Comment on above: Performed By: #### C MP #### [facility] [address] [place] [address] [address] Tg Fierro Urea nitrogen [Mass/Vol] 15.0 mg/dL Normal 7.0-18.0 [facility] Comment on above: Performed By: #### C MP #### [facility] [address] [place] [address] [address] Tg Fierro Urea nitrogen/Creatinine [Mass ratio] 16.1 mg/mg Normal [facility] Comment on above: Performed By: #### C MP #### [facility] [address] [place] [address] [address] Tg Fierro SED RATE WESTERGRENon 2022 SED RATE 9 mm/hr Normal <=30 [facility] Comment on above: Performed By: #### C MP #### [facility] [address] [place] [address] Dr. Tg Fierro PROTIMEon 10-14-2022 INR Coag (PPP) [Relative time] 1.94 {INR} Normal [facility] Comment on above: Performed By: #### P T #### [facility] [address] [place] [address] Dr. Tg Fierro INR GUIDELINES SEE BELOW Normal [facility] Comment on above: Result Comment: LAURENCE RED INR: 2.0 - 3.0 CONDITIONS NOT LISTED BELOW 2.5 - 3.5 FOR PROSTHETIC HEART VALVE REPLACEMENT 2.5 - 3.5 RECURRENT THROMBOSIS Performed By: #### P T #### [facility] [address] [place] [address] Dr. Tg Fierro PT Coag (PPP) [Time] 19.8 s Critically high 9.0-11.6 [facility] Comment on above: Performed By: #### P T #### [facility] [address] [place] [address] Dr. Tg Fierro CBC AUTO DIFFon 09-24-2022 BASO # 0.1 103/ul Normal 0.0-0.1 [facility] Comment on above: Performed By: #### P T #### [facility] [address] [place] [address] Dr. Tg Fierro Basophils/100 WBC (Bld) 0.7 % Normal 0.2-2.0 [facility] Comment on above: Performed By: #### P T #### [facility] [address] [place] [address] Dr. Tg Fierro EO # 0.3 103/ul Normal 0.0-0.7 [facility] Comment on above: Performed By: #### P T #### [facility] [address] [place] [address] Dr. Tg Fierro Eosinophils/100 WBC (Bld) 3.6 % Normal 0.9-7.0 [facility] Comment on above: Performed By: #### P T #### [facility] [address] [place] [address] Dr. Tg Fierro Erythrocyte distribution width (RBC) [Ratio] 13.4 % Normal 11.0-15.0 [facility] Comment on above: Performed By: #### P T #### [facility] [address] [place] [address] Dr. Tg Fierro Hematocrit (Bld) [Volume fraction] 38.4 % Normal 36.0-48.0 [facility] Comment on above: Performed By: #### P T #### [facility] [address] [place] [address] Dr. Tg Fierro Hemoglobin (Bld) [Mass/Vol] 12.7 g/dL Normal 12.0-16.0 [facility] Comment on above: Performed By: #### P T #### [facility] [address] [place] [address] Dr. Tg Fierro IG # 0.05 10e3/ul Critically high 0.00-0.[address] [facility] Comment on above: Performed By: #### P T #### [facility] [address] [place] [address] Dr. Tg Fierro IG % 0.7 % Critically high 0.0-0.5 [facility] Comment on above: Performed By: #### P T #### [facility] [address] [place] [address] Dr. Tg Fierro LYMPH # 2.6 103/ul Normal 1.2-3.8 [facility] Comment on above: Performed By: #### P T #### [facility] [address] [place] [address] Dr. Tg Fierro Lymphocytes/100 WBC (Bld) 34.2 % Normal 20.5-60.0 [facility] Comment on above: Performed By: #### P T #### [facility] [address] [place] [address] Dr. Tg Fierro MANUAL DIFF REQ NO Normal [facility] Comment on above: Performed By: #### P T #### [facility] [address] [place] [address] Dr. Tg Fierro MCH (RBC) [Entitic mass] 31.2 pg Normal 26.7-34.0 [facility] Comment on above: Performed By: #### P T #### [facility] [address] [place] [address] Dr. Tg Fierro MCHC (RBC) [Mass/Vol] 33.1 g/dL Normal 29.9-35.2 [facility] Comment on above: Performed By: #### P T #### [facility] [address] [place] [address] Dr. Tg Fierro MCV (RBC) [Entitic vol] 94.3 fL Normal 81.0-99.0 [facility] Comment on above: Performed By: #### P T #### [facility] [address] [place] [address] Dr. Tg Fierro MONO # 0.6 103/ul Normal 0.3-0.8 [facility] Comment on above: Performed By: #### P T #### [facility] [address] [place] [address] Dr. Tg Fierro Monocytes/100 WBC (Bld) 8.1 % Normal 1.7-12.0 [facility] Comment on above: Performed By: #### P T #### [facility] [address] [place] [address] Dr. Tg Fierro NEUT # 4.1 103/ul Normal 1.4-6.5 [facility] Comment on above: Performed By: #### P T #### [facility] [address] [place] [address] Dr. Tg Fierro Neutrophils/100 WBC (Bld) 52.7 % Normal 43.0-75.0 [facility] Comment on above: Performed By: #### P T #### [facility] [address] [place] [address] Dr. Tg Fierro Platelet mean volume (Bld) [Entitic vol] 8.7 fL Critically low 9.5-13.5 [facility] Comment on above: Performed By: #### P T #### [facility] [address] [place] [address] Dr. Tg Fierro PLT 278 103/ul Normal 150-450 [facility] Comment on above: Performed By: #### P T #### [facility] [address] [place] [address] Dr. Tg Fierro RBC 4.07 106/ul Critically low 4.20-5.40 [facility] Comment on above: Performed By: #### P T #### [facility] [address] [place] [address] Dr. Tg Fierro WBC 7.7 103/ul Normal 4.0-11.0 [facility] Comment on above: Performed By: #### P T #### [facility] [address] [place] [address] Dr. Tg Fierro PROF 14(COMP METB)on 023 Albumin [Mass/Vol] 3.9 g/dL Normal 3.4-5.0 [facility] Comment on above: Performed By: #### C MP #### [facility] [address] [place] [address] Dr. Tg Fierro Albumin/Globulin [Mass ratio] 1.4 {ratio} Normal [facility] Comment on above: Performed By: #### C MP #### [facility] [address] [place] [address] Dr. Tg Fierro ALP [Catalytic activity/Vol] 59 U/L Normal 46-116 [facility] Comment on above: Performed By: #### C MP #### [facility] [address] [place] [address] Dr. Tg Fierro ALT [Catalytic activity/Vol] 21 U/L Normal 14-59 [facility] Comment on above: Performed By: #### C MP #### [facility] [address] [place] [address] [address] Tg Fierro Anion gap [Moles/Vol] 10.8 mmol/L Normal [facility] Comment on above: Performed By: #### C MP #### [facility] [address] [address] [address] Tg Fierro AST [Catalytic activity/Vol] 9 U/L Critically low 15-37 [facility] Comment on above: Performed By: #### C MP #### [facility] [address] [place] [address] Dr[address] Tg Fierro Bilirubin [Mass/Vol] 0.3 mg/dL Normal 0.2-1.0 [facility] Comment on above: Performed By: #### C MP #### [facility] [address] [address] [address] Tg Fierro Calcium [Mass/Vol] 9.1 mg/dL Normal 8.5-10.1 [facility] Comment on above: Performed By: #### C MP #### [facility] [address] [address] [address] gT Fierro Chloride [Moles/Vol] 104 mmol/L Normal 98-107 [facility] Comment on above: Performed By: #### C MP #### [facility] [address] [address] [address] Tg Fierro CO2 [Moles/Vol] 28.3 mmol/L Normal 21.0-32.0 [facility] Comment on above: Performed By: #### C MP #### [facility] [address] [address] [address] Tg Fierro Creatinine [Mass/Vol] 0.86 mg/dL Normal 0.55-1.02 [facility] Comment on above: Performed By: #### C MP #### [facility] [address] [address] [address] Tg Fierro EGFR-AF PARAGUAYAN >60 Normal >=60 [facility] Comment on above: Performed By: #### C MP #### [facility] [address] [address] [address] Tg Fierro EGFR-NON AF PARAGUAYAN >60 Normal >=60 [facility] Comment on above: Performed By: #### C MP #### [facility] [address] [address] [address] Tg Fierro Globulin (S) [Mass/Vol] 2.7 g/dL Normal [facility] Comment on above: Performed By: #### C MP #### [facility] [address] [address] [address] Tg Fierro Glucose [Mass/Vol] 120 mg/dL Critically high 74-106 [facility] Comment on above: Performed By: #### C MP #### [facility] [address] [address] [address] Tg Fierro Potassium [Moles/Vol] 4.1 mmol/L Normal 3.5-5.1 [facility] Comment on above: Performed By: #### C MP #### [facility] [address] [address] [address] Tg Fierro Protein [Mass/Vol] 6.6 g/dL Normal 6.4-8.2 [facility] Comment on above: Performed By: #### C MP #### [facility] [address] [place] [address] Dr. Tg Fierro Sodium [Moles/Vol] 139 mmol/L Normal 136-145 [facility] Comment on above: Performed By: #### C MP #### [facility] [address] [address] [address] Tg Fierro Urea nitrogen [Mass/Vol] 13.0 mg/dL Normal 7.0-18.0 [facility] Comment on above: Performed By: #### C MP #### [facility] [address] [place] [address] Dr. Tg Fierro Urea nitrogen/Creatinine [Mass ratio] 15.1 mg/mg Normal [facility] Comment on above: Performed By: #### C MP #### [facility] [address] [place] [address] Dr. Tg iFerro PROTIMEon 09-24-2022 INR Coag (PPP) [Relative time] 1.35 {INR} Normal [facility] Comment on above: Performed By: #### P T #### [facility] [address] [place] [address] Dr. Tg Fierro INR GUIDELINES SEE BELOW Normal [facility] Comment on above: Result Comment: LAURENCE RED INR: 2.0 - 3.0 CONDITIONS NOT LISTED BELOW 2.5 - 3.5 FOR PROSTHETIC HEART VALVE REPLACEMENT 2.5 - 3.5 RECURRENT THROMBOSIS Performed By: #### P T #### [facility] [address] [place] [address] Dr. Tg Fierro PT Coag (PPP) [Time] 14.1 s Critically high 9.0-11.6 [facility] Comment on above: Performed By: #### P T #### [facility] [address] [place] [address] Dr. Tg Fierro SED RATE [facility] 2022 SED RATE 8 mm/hr Normal <=30 [facility] Comment on above: Performed By: #### C MP #### [facility] [address] [place] [address] Dr. Tg Fierro PROTIMEon 09-09-2022 INR Coag (PPP) [Relative time] 1.23 {INR} Normal [facility] Comment on above: Performed By: #### P T #### [facility] [address] [place] [address] Dr. Tg Fierro INR GUIDELINES SEE BELOW Normal [facility] Comment on above: Result Comment: LAURENCE RED INR: 2.0 - 3.0 CONDITIONS NOT LISTED BELOW 2.5 - 3.5 FOR PROSTHETIC HEART VALVE REPLACEMENT 2.5 - 3.5 RECURRENT THROMBOSIS Performed By: #### P T #### [facility] [address] [place] [address] Dr. Tg Fierro PT Coag (PPP) [Time] 12.9 s Critically high 9.0-11.6 [facility] Comment on above: Performed By: #### P T #### [facility] [address] [address] [address] Tg Fierro ECHOCARDIO M/2D COMPLETEon 0 09-02-2022 ECHOCARDIO M/2D COMPLETE Patient: WILDA SEN Exam Date: 09/02/2022 : 1945 Gender:F Ordering : DR JAYME PEREZ . Admission #: [id number] Family : Order #: [id number] CLICK HERE TO VIEW EXAM ECHOCARDIOGRAM REPORT [...] Bender M.D. on 09/03/2022 at 17:25 Normal [facility] GLYCOHEMOGLOBIN A1Con 2022 ADA RECOMMENDATION SEE BELOW Normal [facility] Comment on above: Result Comment: ADA RECOMMENDED LIMIT 4.0 - 6.0 ADA THERAPEUTIC TARGET < 7.0 ACTION SUGGESTED > 7.0 Performed By: #### A 1C #### [facility] [address] [place] [address] Dr. Tg Fierro Glucose [Mass/Vol] 148 mg/dL Normal [facility] Comment on above: Performed By: #### A 1C #### [facility] [address] [place] [address] Dr. Tg Fierro HbA1c (Bld) [Mass fraction] 6.8 % Critically high 4.5-6.2 [facility] Comment on above: Performed By: #### A 1C #### [facility] [address] [place] [address] Dr. Tg Fierro CBC AUTO DIFFon 08-05-2022 BASO # 0.1 103/ul Normal 0.0-0.1 [facility] Comment on above: Performed By: #### C BC #### [facility] [address] [place] [address] Dr. Tg Fierro Basophils/100 WBC (Bld) 0.8 % Normal 0.2-2.0 [facility] Comment on above: Performed By: #### C BC #### [facility] [address] [place] [address] Dr. Tg Fierro EO # 0.5 103/ul Normal 0.0-0.7 [facility] Comment on above: Performed By: #### C BC #### [facility] [address] [place] [address] Dr. Tg Fierro Eosinophils/100 WBC (Bld) 7.3 % Critically high 0.9-7.0 [facility] Comment on above: Performed By: #### C BC #### [facility] [address] [place] [address] Dr. Tg Fierro Erythrocyte distribution width (RBC) [Ratio] 13.4 % Normal 11.0-15.0 [facility] Comment on above: Performed By: #### C BC #### [facility] [address] [place] [address] Dr. Tg Fierro Hematocrit (Bld) [Volume fraction] 37.1 % Normal 36.0-48.0 [facility] Comment on above: Performed By: #### C BC #### [facility] [address] [place] [address] Dr. Tg Fierro Hemoglobin (Bld) [Mass/Vol] 12.9 g/dL Normal 12.0-16.0 [facility] Comment on above: Performed By: #### C BC #### [facility] [address] [place] [address] Dr. Tg Fierro IG # 0.03 10e3/ul Normal 0.00-0.03 [facility] Comment on above: Performed By: #### C BC #### [facility] [address] [place] [address] Dr. Tg Fierro IG % 0.5 % Normal 0.0-0.5 [facility] Comment on above: Performed By: #### C BC #### [facility] [address] [place] [address] Dr. Tg Fierro LYMPH # 2.3 103/ul Normal 1.2-3.8 [facility] Comment on above: Performed By: #### C BC #### [facility] [address] [place] [address] Dr. Tg Fierro Lymphocytes/100 WBC (Bld) 34.9 % Normal 20.5-60.0 [facility] Comment on above: Performed By: #### C BC #### [facility] [address] [place] [address] Dr. Tg Fierro MANUAL DIFF REQ NO Normal [facility] Comment on above: Performed By: #### C BC #### [facility] [address] [place] [address] Dr. Tg Fierro MCH (RBC) [Entitic mass] 31.0 pg Normal 26.7-34.0 [facility] Comment on above: Performed By: #### C BC #### [facility] [address] [address] [address] Tg Fierro MCHC (RBC) [Mass/Vol] 34.8 g/dL Normal 29.9-35.2 [facility] Comment on above: Performed By: #### C BC #### [facility] [address] [address] [address] Tg Fierro MCV (RBC) [Entitic vol] 89.2 fL Normal 81.0-99.0 [facility] Comment on above: Performed By: #### C BC #### [facility] [address] [place] [address] Dr. Tg Fierro MONO # 0.4 103/ul Normal 0.3-0.8 [facility] Comment on above: Performed By: #### C BC #### [facility] [address] [place] [address] Dr. Tg Fierro Monocytes/100 WBC (Bld) 6.1 % Normal 1.7-12.0 [facility] Comment on above: Performed By: #### C BC #### [facility] [address] [place] [address] Dr. Tg Firero NEUT # 3.3 103/ul Normal 1.4-6.5 [facility] Comment on above: Performed By: #### C BC #### [facility] [address] [place] [address] Dr. Tg Fierro Neutrophils/100 WBC (Bld) 50.4 % Normal 43.0-75.0 [facility] Comment on above: Performed By: #### C BC #### [facility] [address] [address] [address] Tg Fierro Platelet mean volume (Bld) [Entitic vol] 8.6 fL Critically low 9.5-13.5 [facility] Comment on above: Performed By: #### C BC #### [facility] [address] [place] [address] Dr. Tg Fierro PLT 336 103/ul Normal 150-450 [facility] Comment on above: Performed By: #### C BC #### [facility] [address] [address] [address] Tg Fierro RBC 4.16 106/ul Critically low 4.20-5.40 [facility] Comment on above: Performed By: #### C BC #### [facility] [address] [address] [address] Tg Fierro WBC 6.4 103/ul Normal 4.0-11.0 [facility] Comment on above: Performed By: #### C BC #### [facility] [address] [address] [address] Tg Fierro PROF 14(COMP METB)on 023 Albumin [Mass/Vol] 3.9 g/dL Normal 3.4-5.0 [facility] Comment on above: Performed By: #### P T #### [facility] [address] [place] [address] Dr. Tg Fierro Albumin/Globulin [Mass ratio] 1.3 {ratio} Normal [facility] Comment on above: Performed By: #### P T #### [facility] [address] [place] [address] Dr. Tg Fierro ALP [Catalytic activity/Vol] 60 U/L Normal 46-116 [facility] Comment on above: Performed By: #### P T #### [facility] [address] [place] [address] Dr. Tg Fierro ALT [Catalytic activity/Vol] 21 U/L Normal 14-59 [facility] Comment on above: Performed By: #### P T #### [facility] [address] [place] [address] Dr. Tg Fierro Anion gap [Moles/Vol] 15.2 mmol/L Normal [facility] Comment on above: Performed By: #### P T #### [facility] [address] [place] [address] Dr. Tg Fierro AST [Catalytic activity/Vol] 14 U/L Critically low 15-37 [facility] Comment on above: Performed By: #### P T #### [facility] [address] [address] [address] Tg Fierro Bilirubin [Mass/Vol] 0.4 mg/dL Normal 0.2-1.0 [facility] Comment on above: Performed By: #### P T #### [facility] [address] [address] [address] Tg Fierro Calcium [Mass/Vol] 9.3 mg/dL Normal 8.5-10.1 [facility] Comment on above: Performed By: #### P T #### [facility] [address] [address] [address] Tg Fierro Chloride [Moles/Vol] 102 mmol/L Normal 98-107 [facility] Comment on above: Performed By: #### P T #### [facility] [address] [place] [address] Dr. Tg Fierro CO2 [Moles/Vol] 26.8 mmol/L Normal 21.0-32.0 [facility] Comment on above: Performed By: #### P T #### [facility] [address] [place] [address] Dr. Tg Fierro Creatinine [Mass/Vol] 0.74 mg/dL Normal 0.55-1.02 [facility] Comment on above: Performed By: #### P T #### [facility] [address] [place] [address] Dr. Tg Fierro EGFR-AF PARAGUAYAN >60 Normal >=60 [facility] Comment on above: Performed By: #### P T #### [facility] [address] [place] [address] Dr. Tg Fierro EGFR-NON AF PARAGUAYAN >60 Normal >=60 [facility] Comment on above: Performed By: #### P T #### [facility] [address] [place] [address] Dr. Tg Fierro Globulin (S) [Mass/Vol] 3.1 g/dL Normal [facility] Comment on above: Performed By: #### P T #### [facility] [address] [place] [address] Dr. Tg Fierro Glucose [Mass/Vol] 148 mg/dL Critically high 74-106 [facility] Comment on above: Performed By: #### P T #### [facility] [address] [place] [address] Dr. Tg Fierro Potassium [Moles/Vol] 4.0 mmol/L Normal 3.5-5.1 [facility] Comment on above: Performed By: #### P T #### [facility] [address] [place] [address] Dr. Tg Fierro Protein [Mass/Vol] 7.0 g/dL Normal 6.4-8.2 [facility] Comment on above: Performed By: #### P T #### [facility] [address] [place] [address] Dr. Tg Fierro Sodium [Moles/Vol] 140 mmol/L Normal 136-145 [facility] Comment on above: Performed By: #### P T #### [facility] [address] [place] [address] Dr. Tg Fierro Urea nitrogen [Mass/Vol] 12.0 mg/dL Normal 7.0-18.0 [facility] Comment on above: Performed By: #### P T #### [facility] [address] [place] [address] Dr. Tg Fierro Urea nitrogen/Creatinine [Mass ratio] 16.2 mg/mg Normal [facility] Comment on above: Performed By: #### P T #### [facility] [address] [place] [address] Dr. Tg Fierro SED RATE [facility] 2022 SED RATE 30 mm/hr Normal <=30 [facility] Comment on above: Performed By: #### S EDR #### [facility] [address] [place] [address] Dr. Tg Fierro CBC AUTO DIFFon 04-15-2022 BASO # 0.1 103/ul Normal 0.0-0.1 [facility] Comment on above: Performed By: #### C BC #### [facility] [address] [place] [address] Dr. Tg Fierro Basophils/100 WBC (Bld) 0.6 % Normal 0.2-2.0 [facility] Comment on above: Performed By: #### C BC #### [facility] [address] [place] [address] Dr. Tg Fierro EO # 0.2 103/ul Normal 0.0-0.7 [facility] Comment on above: Performed By: #### C BC #### [facility] [address] [place] [address] Dr. Tg Fierro Eosinophils/100 WBC (Bld) 3.1 % Normal 0.9-7.0 [facility] Comment on above: Performed By: #### C BC #### [facility] [address] [place] [address] Dr. Tg Fierro Erythrocyte distribution width (RBC) [Ratio] 13.6 % Normal 11.0-15.0 [facility] Comment on above: Performed By: #### C BC #### [facility] [address] [place] [address] Dr. Tg Fierro Hematocrit (Bld) [Volume fraction] 42.3 % Normal 36.0-48.0 [facility] Comment on above: Performed By: #### C BC #### [facility] [address] [place] [address] Dr. Tg Fierro Hemoglobin (Bld) [Mass/Vol] 13.2 g/dL Normal 12.0-16.0 [facility] Comment on above: Performed By: #### C BC #### [facility] [address] [place] [address] Dr. Tg Fierro IG # 0.04 10e3/ul Critically high 0.00-0.03 [facility] Comment on above: Performed By: #### C BC #### [facility] [address] [place] [address] Dr. Tg Fierro IG % 0.5 % Normal 0.0-0.5 [facility] Comment on above: Performed By: #### C BC #### [facility] [address] [place] [address] Dr. Tg Fierro LYMPH # 2.5 103/ul Normal 1.2-3.8 [facility] Comment on above: Performed By: #### C BC #### [facility] [address] [place] [address] Dr. Tg Fierro Lymphocytes/100 WBC (Bld) 31.6 % Normal 20.5-60.0 [facility] Comment on above: Performed By: #### C BC #### [facility] [address] [place] [address] Dr. Tg Fierro MANUAL DIFF REQ NO Normal [facility] Comment on above: Performed By: #### C BC #### [facility] [address] [place] [address] Dr. Tg Fierro MCH (RBC) [Entitic mass] 30.3 pg Normal 26.7-34.0 [facility] Comment on above: Performed By: #### C BC #### [facility] [address] [place] [address] Dr. Tg Fierro MCHC (RBC) [Mass/Vol] 31.2 g/dL Normal 29.9-35.2 [facility] Comment on above: Performed By: #### C BC #### [facility] [address] [place] [address] Dr. Tg Fierro MCV (RBC) [Entitic vol] 97.0 fL Normal 81.0-99.0 [facility] Comment on above: Performed By: #### C BC #### [facility] [address] [place] [address] Dr. Tg Fierro MONO # 0.5 103/ul Normal 0.3-0.8 [facility] Comment on above: Performed By: #### C BC #### [facility] [address] [place] [address] Dr. Tg Fierro Monocytes/100 WBC (Bld) 6.3 % Normal 1.7-12.0 [facility] Comment on above: Performed By: #### C BC #### [facility] [address] [place] [address] Dr. Tg Fierro NEUT # 4.5 103/ul Normal 1.4-6.5 [facility] Comment on above: Performed By: #### C BC #### [facility] [address] [address] [address] Tg Fierro Neutrophils/100 WBC (Bld) 57.9 % Normal 43.0-75.0 [facility] Comment on above: Performed By: #### C BC #### [facility] [address] [place] [address] Dr. Tg Fierro Platelet mean volume (Bld) [Entitic vol] 8.6 fL Critically low 9.5-13.5 [facility] Comment on above: Performed By: #### C BC #### [facility] [address] [place] [address] Dr. Tg Fierro PLT 295 103/ul Normal 150-450 [facility] Comment on above: Performed By: #### C BC #### [facility] [address] [place] [address] Dr. Tg Fierro RBC 4.36 106/ul Normal 4.20-5.40 [facility] Comment on above: Performed By: #### C BC #### [facility] [address] [place] [address] Dr. Tg Fierro WBC 7.8 103/ul Normal 4.0-11.0 [facility] Comment on above: Performed By: #### C BC #### [facility] [address] [place] [address] Dr. Tg Fierro PROF 14(COMP METB)on 022 Albumin [Mass/Vol] 4.5 g/dL Normal 3.4-5.0 [facility] Comment on above: Performed By: #### C MP #### [facility] [address] [place] [address] Dr. Tg Fierro Albumin/Globulin [Mass ratio] 1.5 {ratio} Normal [facility] Comment on above: Performed By: #### C MP #### [facility] [address] [place] [address] Dr. Tg Fierro ALP [Catalytic activity/Vol] 62 U/L Normal 46-116 [facility] Comment on above: Performed By: #### C MP #### [facility] [address] [address] [address] Tg Fierro ALT [Catalytic activity/Vol] 25 U/L Normal 14-59 [facility] Comment on above: Performed By: #### C MP #### [facility] [address] [address] [address] Tg Fierro Anion gap [Moles/Vol] 10.6 mmol/L Normal [facility] Comment on above: Performed By: #### C MP #### [facility] [address] [address] [address] Tg Fierro AST [Catalytic activity/Vol] 12 U/L Critically low 15-37 [facility] Comment on above: Performed By: #### C MP #### [facility] [address] [address] [address] Tg Fierro Bilirubin [Mass/Vol] 0.5 mg/dL Normal 0.2-1.0 [facility] Comment on above: Performed By: #### C MP #### [facility] [address] [address] [address] Tg Fierro Calcium [Mass/Vol] 9.8 mg/dL Normal 8.5-10.1 [facility] Comment on above: Performed By: #### C MP #### [facility] [address] [address] [address] Tg Fierro Chloride [Moles/Vol] 102 mmol/L Normal 98-107 [facility] Comment on above: Performed By: #### C MP #### [facility] [address] [address] [address] Tg Fierro CO2 [Moles/Vol] 31.8 mmol/L Normal 21.0-32.0 [facility] Comment on above: Performed By: #### C MP #### [facility] [address] [address] [address] Tg Fierro Creatinine [Mass/Vol] 0.88 mg/dL Normal 0.55-1.02 [facility] Comment on above: Performed By: #### C MP #### [facility] [address] [address] [address] Tg Fierro EGFR-AF PARAGUAYAN >60 Normal >=60 [facility] Comment on above: Performed By: #### C MP #### [facility] [address] [address] [address] Tg Fierro EGFR-NON AF PARAGUAYAN >60 Normal >=60 [facility] Comment on above: Performed By: #### C MP #### [facility] [address] [address] [address] Tg Fierro Globulin (S) [Mass/Vol] 3.1 g/dL Normal [facility] Comment on above: Performed By: #### C MP #### [facility] [address] [address] [address] Tg Fierro Glucose [Mass/Vol] 187 mg/dL Critically high 74-106 [facility] Comment on above: Performed By: #### C MP #### [facility] [address] [address] [address] Tg Fierro Potassium [Moles/Vol] 4.4 mmol/L Normal 3.5-5.1 [facility] Comment on above: Performed By: #### C MP #### [facility] [address] [place] [address] Dr. Tg Fierro Protein [Mass/Vol] 7.6 g/dL Normal 6.4-8.2 [facility] Comment on above: Performed By: #### C MP #### [facility] [address] [address] [address] Tg Fierro Sodium [Moles/Vol] 140 mmol/L Normal 136-145 [facility] Comment on above: Performed By: #### C MP #### [facility] [address] [address] [address] Tg Fierro Urea nitrogen [Mass/Vol] 14.0 mg/dL Normal 7.0-18.0 [facility] Comment on above: Performed By: #### C MP #### [facility] [address] [place] [address] Dr. Tg Fierro Urea nitrogen/Creatinine [Mass ratio] 15.9 mg/mg Normal [facility] Comment on above: Performed By: #### C MP #### [facility] [address] [place] [address] Dr. Tg Fierro SED RATE WESTERGRENon 2021 SED RATE 5 mm/hr Normal <=30 [facility] Comment on above: Performed By: #### S EDR #### [facility] [address] [place] [address] Dr. Tg Fierro CBC AUTO DIFFon 02-07-2022 BASO # 0.0 103/ul Normal 0.0-0.1 [facility] [facility] Comment on above: Performed By: #### P T #### [facility] [address] [place] [address] Dr. Tg Fierro Basophils/100 WBC (Bld) 0.6 % Normal 0.2-2.0 [facility] Comment on above: Performed By: #### P T #### [facility] [address] [place] [address] Dr. Tg Fierro EO # 0.4 103/ul Normal 0.0-0.7 [facility] Comment on above: Performed By: #### P T #### [facility] [address] [place] [address] Dr. Tg Fierro Eosinophils/100 WBC (Bld) 5.4 % Normal 0.9-7.0 [facility] Comment on above: Performed By: #### P T #### [facility] [address] [place] [address] Dr. Tg Fierro Erythrocyte distribution width (RBC) [Ratio] 13.5 % Normal 11.0-15.0 [facility] Comment on above: Performed By: #### P T #### [facility] [address] [place] [address] Dr. Tg Fierro Hematocrit (Bld) [Volume fraction] 39.4 % Normal 36.0-48.0 [facility] Comment on above: Performed By: #### P T #### [facility] [address] [place] [address] Dr. Tg Fierro Hemoglobin (Bld) [Mass/Vol] 12.8 g/dL Normal 12.0-16.0 [facility] Comment on above: Performed By: #### P T #### [facility] [address] [place] [address] Dr. Tg Fierro IG # 0.02 10e3/ul Normal 0.00-0.03 [facility] Comment on above: Performed By: #### P T #### [facility] [address] [place] [address] Dr. Tg Fierro IG % 0.3 % Normal 0.0-0.5 [facility] Comment on above: Performed By: #### P T #### [facility] [address] [place] [address] Dr. Tg Fierro LYMPH # 2.4 103/ul Normal 1.2-3.8 [facility] Comment on above: Performed By: #### P T #### [facility] [address] [place] [address] Dr. Tg Fierro Lymphocytes/100 WBC (Bld) 36.2 % Normal 20.5-60.0 [facility] Comment on above: Performed By: #### P T #### [facility] [address] [place] [address] Dr. Tg Fierro MANUAL DIFF REQ NO Normal [facility] Comment on above: Performed By: #### P T #### [facility] [address] [place] [address] Dr. Tg Fierro MCH (RBC) [Entitic mass] 31.0 pg Normal 26.7-34.0 [facility] Comment on above: Performed By: #### P T #### [facility] [address] [place] [address] Dr. Tg Fierro MCHC (RBC) [Mass/Vol] 32.5 g/dL Normal 29.9-35.2 [facility] Comment on above: Performed By: #### P T #### [facility] [address] [place] [address] Dr. Tg Fierro MCV (RBC) [Entitic vol] 95.4 fL Normal 81.0-99.0 [facility] Comment on above: Performed By: #### P T #### [facility] [address] [place] [address] Dr. Tg Fierro MONO # 0.5 103/ul Normal 0.3-0.8 [facility] Comment on above: Performed By: #### P T #### [facility] [address] [place] [address] Dr. Tg Fierro Monocytes/100 WBC (Bld) 8.0 % Normal 1.7-12.0 [facility] Comment on above: Performed By: #### P T #### [facility] [address] [place] [address] Dr. Tg Fierro NEUT # 3.3 103/ul Normal 1.4-6.5 [facility] Comment on above: Performed By: #### P T #### [facility] [address] [place] [address] Dr. Tg Fierro Neutrophils/100 WBC (Bld) 49.5 % Normal 43.0-75.0 [facility] Comment on above: Performed By: #### P T #### [facility] [address] [place] [address] Dr. Tg Fierro Platelet mean volume (Bld) [Entitic vol] 8.7 fL Critically low 9.5-13.5 [facility] Comment on above: Performed By: #### P T #### [facility] [address] [place] [address] Dr. Tg Fierro PLT 276 103/ul Normal 150-450 [facility] Comment on above: Performed By: #### P T #### [facility] [address] [place] [address] Dr. Tg Fierro RBC 4.13 106/ul Critically low 4.20-5.40 [facility] Comment on above: Performed By: #### P T #### [facility] [address] [place] [address] Dr. Tg Fierro WBC 6.7 103/ul Normal 4.0-11.0 [facility] Comment on above: Performed By: #### P T #### [facility] [address] [place] [address] Dr. Tg Fierro GLYCOHEMOGLOBIN A1Con 2021 ADA RECOMMENDATION SEE BELOW Normal [facility] Comment on above: Result Comment: ADA RECOMMENDED LIMIT 4.0 - 6.0 ADA THERAPEUTIC TARGET < 7.0 ACTION SUGGESTED > 7.0 Performed By: #### A 1C #### [facility] [address] [place] [address] Dr. Tg Fierro Glucose [Mass/Vol] 151 mg/dL Normal [facility] Comment on above: Performed By: #### A 1C #### [facility] [address] [place] [address] Dr. Tg Fierro HbA1c (Bld) [Mass fraction] 6.9 % Critically high 4.5-6.2 [facility] Comment on above: Performed By: #### A 1C #### [facility] [address] [place] [address] Dr. Tg Fierro PROF 14(COMP METB)on 022 Albumin [Mass/Vol] 3.8 g/dL Normal 3.4-5.0 [facility] Comment on above: Performed By: #### P T #### [facility] [address] [place] [address] Dr. Tg Fierro Albumin/Globulin [Mass ratio] 1.3 {ratio} Normal [facility] Comment on above: Performed By: #### P T #### [facility] [address] [place] [address] Dr. Tg Fierro ALP [Catalytic activity/Vol] 43 U/L Critically low 46-116 [facility] Comment on above: Performed By: #### P T #### [facility] [address] [place] [address] Dr. Tg Fierro ALT [Catalytic activity/Vol] 19 U/L Normal 14-59 [facility] Comment on above: Performed By: #### P T #### [facility] [address] [place] [address] Dr. Tg Fierro Anion gap [Moles/Vol] 13.7 mmol/L Normal [facility] Comment on above: Performed By: #### P T #### [facility] [address] [address] [address] Tg Fierro AST [Catalytic activity/Vol] 11 U/L Critically low 15-37 [facility] Comment on above: Performed By: #### P T #### [facility] [address] [address] [address] Tg Fierro Bilirubin [Mass/Vol] 0.4 mg/dL Normal 0.2-1.0 [facility] Comment on above: Performed By: #### P T #### [facility] [address] [place] [address] Dr. Tg Fierro Calcium [Mass/Vol] 9.1 mg/dL Normal 8.5-10.1 [facility] Comment on above: Performed By: #### P T #### [facility] [address] [address] [address] Tg Fierro Chloride [Moles/Vol] 104 mmol/L Normal 98-107 [facility] Comment on above: Performed By: #### P T #### [facility] [address] [place] [address] Dr. Tg Fierro CO2 [Moles/Vol] 28.5 mmol/L Normal 21.0-32.0 [facility] Comment on above: Performed By: #### P T #### [facility] [address] [place] [address] Dr. Tg Fierro Creatinine [Mass/Vol] 0.77 mg/dL Normal 0.55-1.02 [facility] Comment on above: Performed By: #### P T #### [facility] [address] [address] [address] Tg Fierro EGFR-AF PARAGUAYAN >60 Normal >=60 [facility] Comment on above: Performed By: #### P T #### [facility] [address] [place] [address] Dr. Tg Fierro EGFR-NON AF PARAGUAYAN >60 Normal >=60 [facility] Comment on above: Performed By: #### P T #### [facility] [address] [address] [address] Tg Fierro Globulin (S) [Mass/Vol] 3.0 g/dL Normal [facility] Comment on above: Performed By: #### P T #### [facility] [address] [address] [address] Tg Fierro Glucose [Mass/Vol] 124 mg/dL Critically high 74-106 [facility] Comment on above: Performed By: #### P T #### [facility] [address] [address] [address] Tg Fierro Potassium [Moles/Vol] 4.2 mmol/L Normal 3.5-5.1 [facility] Comment on above: Performed By: #### P T #### [facility] [address] [place] [address] Dr. Tg Fierro Protein [Mass/Vol] 6.8 g/dL Normal 6.4-8.2 [facility] Comment on above: Performed By: #### P T #### [facility] [address] [place] [address] Dr. Tg Fierro Sodium [Moles/Vol] 142 mmol/L Normal 136-145 [facility] Comment on above: Performed By: #### P T #### [facility] [address] [place] [address] Dr. Tg Fierro Urea nitrogen [Mass/Vol] 12.0 mg/dL Normal 7.0-18.0 [facility] Comment on above: Performed By: #### P T #### [facility] [address] [place] [address] Dr. Tg Fierro Urea nitrogen/Creatinine [Mass ratio] 15.6 mg/mg Normal [facility] Comment on above: Performed By: #### P T #### [facility] [address] [place] [address] Dr. Tg Fierro SED RATE [facility] 2021 SED RATE 8 mm/hr Normal <=30 [facility] Comment on above: Performed By: #### C MP #### [facility] [address] [address] [address] Tg MCKEON Quick Testingon 2020 Result Positive [facility] Other Vital Signs Date Time Vital Sign Value Performing Clinician Facility 04-15-2024 14:16-0400 Body height 160 cm Jayme Perez MD Work Phone: [facility] 04-15-2024 14:16-0400 Body mass index (BMI) [Ratio] 21.79 kg/m2 Jayme Perez MD Work Phone: [facility] 04-15-2024 14:16-0400 Body weight 55.79 kg Jayme Perez MD Work Phone: [facility] 04-15-2024 14:16-0400 Diastolic blood pressure 70 mm[Hg] Jayme Perez MD Work Phone: [facility] 04-15-2024 14:16-0400 Heart rate 87 /min Jayme Perez MD Work Phone: [facility] 04-15-2024 14:16-0400 SaO2% (BldA) [Mass fraction] 98 % Jayme Perez MD Work Phone: [facility] 04-15-2024 14:16-0400 Systolic blood pressure 120 mm[Hg] Jayme Perez MD Work Phone: [facility] 10-14-2023 09:09-0400 Body temperature 98.6 [degF] Williams SHEPHERD [facility] 10-14-2023 09:09-0400 Diastolic blood pressure 61 mm[Hg] Williams SHEPHERD [facility] 10-14-2023 09:09-0400 Heart rate 80 /min Williams SHEPHERD [facility] 10-14-2023 09:09-0400 Respiratory rate 16 /min Williams SHEPHERD [facility] 10-14-2023 09:09-0400 Systolic blood pressure 115 mm[Hg] Williams SHEPHERD [facility] 08-13-2023 10:47-0500 Blood Pressure Location Renato SANTACRUZ [facility] 08-13-2023 10:47-0500 Diastolic blood pressure 62 mm[Hg] Renato SANTACRUZ [facility] 08-13-2023 10:47-0500 Heart rate 82 /min Renato SANTACRUZ [facility] 08-13-2023 10:47-0500 Respiratory rate 16 /min Renato SANTACRUZ [facility] 08-13-2023 10:47-0500 Systolic blood pressure 105 mm[Hg] Renato SANTACRUZ [facility] 08-07-2023 09:48-0500 Body height 160 cm Jayme Perez MD Work Phone: [facility] 08-07-2023 09:48-0500 Body mass index (BMI) [Ratio] 24.45 kg/m2 Jayme Perez MD Work Phone: [facility] 08-07-2023 09:48-0500 Body weight 62.6 kg Jayme Perez MD Work Phone: [facility] 08-07-2023 09:48-0500 Heart rate 57 /min Jayme Perez MD Work Phone: [facility] 08-07-2023 09:48-0500 SaO2% (BldA) [Mass fraction] 98 % Jayme Perez MD Work Phone: [facility] 07-25-2023 09:20-0500 Body height 160.02 cm Lou Glover Other [facility] Other 07-25-2023 09:20-0500 Body mass index (BMI) [Ratio] 23.91 kg/m2 Lou Glover Other [facility] Other 07-25-2023 09:20-0500 Body temperature 97.7 [degF] Lou Glover Other [facility] Other 07-25-2023 09:20-0500 Body weight 61.24 kg Lou Glover Other [facility] Other 07-25-2023 09:20-0500 Diastolic blood pressure 74 mm[Hg] Lou Glover Other [facility] Other 07-25-2023 09:20-0500 Respiratory rate 18 /min Lou Glover Other [facility] Other 07-25-2023 09:20-0500 SaO2% (BldA) [Mass fraction] 96 % Lou Glover Other [facility] Other 07-25-2023 09:20-0500 Systolic blood pressure 120 mm[Hg] Lou Glover Other [facility] Other 03-26-2023 13:15-0400 Body height 160.02 cm MD Jayme Perez Work Phone: [facility] 03-26-2023 13:15-0400 Body temperature 98.2 [degF] MD Jayme Perez Work Phone: [facility] 03-26-2023 13:15-0400 Body weight 66 kg MD Jayme Perez Work Phone: [facility] 03-26-2023 13:15-0400 Diastolic blood pressure 71 mm[Hg] MD Jayme Perez Work Phone: [facility] 03-26-2023 13:15-0400 Heart rate 87 /min MD Jayme Perez Work Phone: [facility] 03-26-2023 13:15-0400 Respiratory rate 16 /min MD Jayme Perez Work Phone: [facility] 03-26-2023 13:15-0400 SaO2% (BldA) [Mass fraction] 97 % MD Jayme Perez Work Phone: [facility] 03-26-2023 13:15-0400 Systolic blood pressure 117 mm[Hg] MD Jayme Perez Work Phone: [facility] 05-21-2021 13:15-0500 Body height 160.02 cm Astrid Baker Other [facility] Other 05-21-2021 13:15-0500 Body mass index (BMI) [Ratio] 23.91 kg/m2 Astrid Baker Other [facility] Other 05-21-2021 13:15-0500 Body temperature 97.3 [degF] Astrid Baker Other [facility] Other 05-21-2021 13:15-0500 Body weight 61.24 kg Astrid Baker Other [facility] Other 05-21-2021 13:15-0500 SaO2% (BldA) [Mass fraction] 94 % Astrid Baker Other [facility] Other Encounters Encounter Date Encounter Type Care [...] fi brillation (CMS/HCC) (Primary Dx); 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; Type 2 diabetes [...] encounter procedure MD Jayme Perez Work Phone: [facility] [address] Work Phone: Start: 03-31-2024 End: 03-31-2024 ambulatory MD Jayme Perez Work Phone: [facility] Work Phone: Start: 12-31-2023 End: 12-31-2023 ambulatory FELICIA FARMER Not Available Start: 10-14-2023 End: 10-15-2023 ambulatory Williams Rubi SHEPHERD Facility:[facility] Start: 10-14-2023 End: 10-14-2023 Patient encounter procedure Williams Rubi SHEPHERD [facility] Start: 09-01-2023 End: 09-01-2023 ambulatory FELICIA FARMER Not Available Start: 08-20-2023 Clinisync Result Encounter Generic External Data Provider [facility] External [facility] Unsolicited Start: 08-20-2023 Clinisync Result Encounter Generic External Data Provider [facility] External Department Unsolicited Start: 08-14-2023 End: 08-15-2023 ambulatory Renato SANTACRUZ Facility:[id number] Start: 08-13-2023 End: 08-14-2023 ambulatory Renato SANTACRUZ Facility:[facility] Start: 08-13-2023 End: 08-13-2023 Patient encounter procedure Renato SANTACRUZ [facility] Start: 08-07-2023 End: 08-07-2023 Office outpatient visit 25 minutes Jayme Perez MD Work Phone: [facility] Comment on above: Chronic diastolic he art failure (CMS/HCC) (Primary Dx); 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 (CMS/HCC); Type 2 diabetes mellitus with stage 3a chronic kidney disease, without long-term current use of insulin (HCC) (CMS/HCC); Stage 3a chronic kidney disease (HCC) (CMS/HCC); Microalbuminuria; Former smoker; 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, adult; half-way current use of anticoagulant; Psoriatic arthropathy (CMS/HCC); Gastroesophageal reflux disease without esophagitis Start: 08-07-2023 End: 08-07-2023 ambulatory JAYME PEREZ Not Available Start: 07-30-2023 End: 07-30-2023 ambulatory JAYME PEREZ Not Available Start: 07-25-2023 End: 07-25-2023 ambulatory Lou Glover Other [facility] Other Start: 07-25-2023 Office outpatient vi sit 25 minutes Lou Glover [facility] Start: 07-10-2023 End: 07-10-2023 ambulatory FELICIA D ZAHLER Not Available Start: 07-02-2023 End: 07-02-2023 ambulatory FELICIA D ZAHLER Not Available Start: 06-25-2023 End: 06-25-2023 ambulatory FELICIA D ZAHLER Not Available Start: 06-18-2023 End: 06-18-2023 ambulatory FELICIA D CORETTAHLER Not Available Start: 04-07-2023 End: 04-07-2023 Departed Referred MD Jayme Perez Work Phone: [facility] [place] Start: 04-07-2023 End: 04-08-2023 ambulatory MD Jayme Perez Work Phone: [facility] Work Phone: Start: 03-26-2023 End: 03-26-2023 Patient encounter procedure MD Jayme Perez Work Phone: [facility] Work Phone: Start: 03-20-2023 End: 03-21-2023 ambulatory Williams SHEPHERD Facility[facility] Start: 03-20-2023 End: 03-20-2023 Lab Drop off Williams SHEPHERD [facility] Start: 03-20-2023 End: 03-20-2023 Patient encounter procedure Williams SHEPHERD [facility] Start: 02-03-2023 End: 02-04-2023 ambulatory Williams SHEPHERD [...] 05-21-2021 End: 05-21-2021 ambulatory Astrid Baker Other [facility] Other Start: 05-21-2021 Office outpatient vi sit [...] 12-30-2025 Glaucoma screening Diabetes: R etinopathy Screening [facility] Start: 05-19-2025 Glaucoma screening Diabetes: R etinopathy Screening [facility] Start: 10-14-2024 End: 04-15-2025 T3, reverse T3, reverse Lab Routine Chronic fatigue Expected: 10/14/2024 (Approximate), Expires: 04/15/2025 [facility] Comment on above: Expected: 10/14/2024 (Approximate), Expires: 04/15/2025 Start: 10-14-2024 End: 04-15-2025 Thyrotropin [Units/volume] in Serum or Plasma TSH Lab Routine Chronic fatigue Expected: 10/14/2024 (Approximate), Expires: 04/15/2025 [facility] Comment on above: Expected: 10/14/2024 (Approximate), Expires: 04/15/2025 Start: 10-14-2024 End: 04-15-2025 Thyroxine (T4) free [Mass/volume] in Serum or Plasma T4, free Lab Routine Chronic fatigue Expected: 10/14/2024 (Approximate), Expires: 04/15/2025 [facility] Comment on above: Expected: 10/14/2024 (Approximate), Expires: 04/15/2025 Start: 10-14-2024 End: 04-15-2025 Triiodothyronine (T3) [Mass/volume] in Serum or Plasma T3 Lab Routine Chronic fatigue Expected: 10/14/2024 (Approximate), Expires: 04/15/2025 [facility] Work Phone: Comment on above: Expected: 10/14/2024 (Approximate), Expires: 04/15/2025 Start: 10-14-2024 End: 04-15-2025 Triiodothyronine (T3) Free [Mass/volume] in Serum or Plasma T3, free Lab Routine Chronic fatigue Expected: 10/14/2024 (Approximate), Expires: 04/15/2025 [facility] Comment on above: Expected: 10/14/2024 (Approximate), Expires: 04/15/2025 Start: 08-04-2024 End: 08-04-2024 Patient encounter procedure 08/04/2024 1:00 PM EST Office Visit [facility] [address] [place] [id number] Felicia Farmer, DO [address] [place] [address] [facility] Start: 07-12-2024 ambulatory Ambulatory Facility:[facility] Start: 05-22-2024 Medicare Annual Well ness (AWV) Medicare Annual Wellness (AWV) [facility] Start: 04-15-2024 End: 04-15-2024 Patient encounter procedure 04/15/2024 2:30 PM EDT Office Visit [facility] [address] [id number] Jayme Perez MD [address] [place] [address] (Fax) [facility] Start: 03-14-2024 Influenza vaccination Influenza Vacc ine (#1) [facility] Start: 10-26-2023 Urine screening for protein Diabetes: Urine Protein Screening [facility] Start: 09-01-2023 End: 09-01-2023 Patient encounter procedure 09/01/2023 10:30 AM EST Office Visit [facility] [address] [place] [id number] Felicia Farmer DO [address] [place] [address] [facility] Start: 05-06-2023 Hemoglobin A1c measurement Sharmin betes: Hemoglobin A1C [facility] Start: 04-07-2023 Abdomen endoscopy OR Cysto/Retro/Stent/Ston e/Holmium Laser (Right) [facility] Start: 03-14-2023 Influenza vaccination Influenza Vacc ine (#1) [facility] Start: 1951 Pneumococcal Vaccine : 65+ Years (1 - PCV) Pneumococcal Vaccine: 65+ Years (1 - PCV) [facility] Start: 1951 Pneumococcal Vaccine : 65+ Years (1 of 2 - PCV) Pneumococcal Vaccine: 65+ Years (1 of 2 - PCV) [facility] Immunizations Immunization Date Immunization Notes Care Provider Fa darek NEGATED: Highlighted row has not occurred!08-13-2023 influenza virus vaccine, unspecified formulation Renato SANTACRUZ [facility] NEGATED: Highlighted row has not occurred!08-13-2023 SARS-CoV-2 mRNA (tozinameran 5y-11y) vaccine Renato SANTACRUZ [facility] NEGATED: Highlighted row has not occurred!09-21-2019 influenza virus vaccine, live, attenuated, for intranasal use [facility] NEGATED: Highlighted row has not occurred!08-20-2019 influenza virus vaccine, live, attenuated, for intranasal use [facility] Payers Date Payer Category Payer Self-pay [id number] 2023 Private Health Insurance [employer] A ETNA SENIOR SUPPLEMENT [id number] 2023-Present [address] [address] [place] [address] Supplement [id number] 2022 Unknown PARAGUAYAN CONTINE NTAL INS CO PAR[employer] CONTINENT[employer] CO [id number] 2022-Present [address] [address] [place] [address] [id number] 2022 Medicare [id number] 2002 Medicare MEDICARE MEDICAR E PART B [id number] 2002-[place] [address] Medicare [id number] 1959 Medicare [id number] 2.16.840.1.154082.19 1959 Unknown [id number] 1946 Unknown [id number] 2.16.840.1.766673.3.579 .2.593 1946 Unknown [id number] 2.16.840.1.516806.3.579 .2.593 1946 Unknown [id number] 2.16.840.1.126563.3.579 .2.593 1946 Unknown [id number] 2.16.840.1.722945.3.579 .2.593 1946 Unknown [id number] 2.16.840.1.591753.3.579 .2.593 1946 Unknown [id number] 2.16.840.1.173333.3.579 .2.593 1946 Unknown [id number] 2.16.840.1.698597.3.579 .2.593 1946 Unknown [id number] 2.16.840.1.320185.3.579 .2.593 1946 Unknown [id number] 2.16.840.1.424729.3.579 .2.593 1946 Unknown [id number] 2.16.840.1.915070.3.579 .2.593 1946 Unknown [id number] 2.16.840.1.799701.3.579 .2.593 1946 Unknown [id number] 2.16.840.1.267733.3.579 .2.593 1946 Unknown [id number] 2.16.840.1.075315.3.579 .2.593 1946 Unknown [id number] 2.16.840.1.860216.3.579 .2.727 1946 Unknown [id number] 2.16.840.1.444297.3.579 .2.727 1946 Unknown [id number] 2.16.840.1.112465.3.579 .2.727 1946 Unknown [id number] 2.16.840.1.454858.3.579 .2.72 1946 Unknown [id number] 2.16.840.1.368565.3.579 .2.727 1946 Unknown [id number] 2.16.840.1.950608.3.579 .2.727 1946 Unknown [id number] 2.16.840.1.858632.3.579 .2.727 1946 Unknown [id number] 2.16.840.1.128434.3.579 .2.125 1946 Unknown [id number] 2.16.840.1.236761.3.579 .2.125 1946 Unknown [id number] 2.16.840.1.520704.3.579 .2.125 1946 Unknown [id number] 2.16.840.1.171962.3.579 .2.125 1945 Unknown [id number] .2.125 1945 Unknown [id number] [id number] .2.125 1945 Unknown [id number] [id number] .2.125 1945 Unknown [id number] 2.16.840.1.657859.3.579 .2.1259 1945 Unknown [id number] [id number] .2.125 Unknown [id number] [id number] .2.531 Social History Date Type Detail Facility Sex Assigned At [facility] Other Start: 02-03-2023 End: 04-15-2024 Tobacco smoking status Ex-smoker (finding) [facility] Tobacco smoking status Never [facility] Start: 12-11-2022 End: 04-08-[address] Female [facility] Start: 1945 Sex Assigned At Female [facility] End: 07-14-1986 History of tobacco use [...] Functional Status N/A [facility] 08-13-2023 Functional Status N/A [facility] Clinical Notes 02-21-2022 to 04-15-2024 Jayme Perez [...] problem, stable, comanaged with Cardiology. Asymptomatic. 2. 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 We discussed how [...] tablet; Refill: 0 documented in this encounter [facility] 10-14-2023 Hospital Discharge instructions Patient Education 10/14/2023 [...] include: ?8 oz (237 mL) of milk, fhtvswa-mwubxruuhycf-tmkvt milk, and calcium-fortifiedfruit juice. Calcium-fortified means that [...] ?Spinach (cooked), rhubarb, beets, sweet potatoes, and Guinean chard. ?Peanuts. ?Potato chips, uzbek fries, and baked potatoes with skin on. ?Nuts and nut products. ?Chocolate. If you regularly take a diuretic medicine, make sure to eat at least 1 or 2 servings of fruits or vegetables that are high in potassium each day. These include: ?Avocado. ?Banana. ?Clarkson, prune, carrot, or tomato juice. ?Baked potato. [...] magnesium, fish oil, or vitamin B6. Take cslv-gon-blvbewx and prescription medicines only as told by [...] Casseroles. Pizza. Lasagna. Frozen meals. Potato chips. New Zealander fries. The items listed above may not [...] provider. Document Revised: 10/10/2022 Document Reviewed: 10/10/2022 [employer]ema Patient Education 2022 [employer]. Follow Up Care 08/13/2023 10:19:44 With:CORA AGUIAR, Williams Venegas, URL Address: [address] [place], [place] [id number]- When: Unknown [facility] 08-13-2023 Hospital Discharge instructions Patient Education 08/13/2023 [...] including vitamins, herbs, eye drops, creams, and cgat-afd-dofesly medicines. Any problems you or family members [...] provider tells you to take them. ?Taking pxvn-ffn-yvxrmzu medicines, vitamins, herbs, and supplements. Eating and [...] provider. Document Revised: 11/06/2022 Document Reviewed: 03/04/2022 [employer] Patient Education 2022 [employer]. Follow Up Care 08/12/2023 14:37:00 With:ANGELITO AGUIAR, Renato Arzola, URL Address: [facility] [address], [place] [address] [phone] When: Unknown Comments:sched ureteroscopyf/u w/ [facility] scheduled 10/14/23 [facility] 08-07-2023 History of Present [...] 0.55 - 1.02 mg/dL Final [facility] EGFR-AF PARAGUAYAN 07/22/2023 >60 >=60 Final [facility] EGFR-NON AF PARAGUAYAN 07/22/2023 55 (L) >=60 Final BUN CREATININE [...] cardiovascular disease. Former smoker 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, adult half-way current use of anticoagulant Chronic problem, that is monitored monthly, and be seen in the monthly INR results. documented in this encounter [facility] 07-25-2023 Evaluation note Encounter Date [...] care as directed rx of steroid and [place], cool mist humidification. May use Tylenol as directed. Immediate eval for signs of respiratory distress, difficulty breathing poor PO intake, signs of dehydration, fever, or other concerning symptoms. Otherwise, follow up with PCP in 2-3 days. Patient verbalizes understanding and is agreeable to treatment plan. Patient sent home in stable condition. [facility] Other 08-11-2022 NotePROCEDURE: XR FOOT LT MIN 3 VIEWS COMPARISON: None. HISTORY: Pain in left foot FINDINGS: BONES:No acute fracture or dislocation. Mild enthesopathic spurring of the calcaneus. SOFT TISSUES:Negative. No visible soft tissue swelling. EFFUSION:None visible. OTHER: Negative. IMPRESSION: Mild enthesopathic spurring of the calcaneus Electronically authenticated by: BLANCA ZAVALA Date: 2022-02-21 07:28[facility] Future [facility]ments Appointment Date:07/12/2024 10:45:00 AM Scheduled Provider:Williams SHEPHERD MD Location:[facility] [place] Appointment Type:URO Office Visit [facility] Evaluation + Plan note Future Appointments Appointment Date:07/12/2024 10:45:00 AM Scheduled Provider:Williams SHEPHERD MD Location:[facility] Appointment Type:URO Office Visit Diagnostic Tests Pending * Calculi Analysis [facility]ments Appointment Date:10/14/2023 09:15:00 AM Scheduled Provider:Williams SHEPHERD MD Location:[facility] [place] Appointment Type:URO Office Visit Appointment Date:07/12/2024 10:45:00 AM Scheduled Provider:Williams SHEPHERD MD Location:[facility] Appointment Type:URO Office Visit [facility] evaluation noteNort [employer] Other evaluation noteNo assessment information available [facility] Work Phone: evaluation note* Diagnosis Chronic diastolic heart failure (CMS/HCC)- Primary Chronic diastolic heart failure 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 (CMS/HCC) Atrial fibrillation Type 2 diabetes mellitus with stage 3a chronic kidney disease, without long-term current use of insulin (HCC) ([facility]/HCC) Stage 3a chronic kidney disease (HCC) ([facility]/HCC) Microalbuminuria Proteinuria Former smoker Personal history of tobacco use, presenting hazards to health 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, 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 Psoriatic arthropathy (CMS/HCC) Psoriatic arthropathy Gastroesophageal reflux disease without esophagitis Esophageal reflux [facility] Diagnosis 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 (CMS/HCC)- Primary Atrial 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 Type 2 diabetes mellitus with stage 3a chronic kidney disease, without long-term current use of insulin (HCC) (CMS/HCC) Stage 3a chronic kidney disease (HCC) (CMS/HCC) Microalbuminuria Proteinuria Unexplained weight loss Loss of weight Chronic fatigue Other malaise and fatigue Sleep arousal disorder [facility] [place] Other History general Narrative - Reported* Type Description Date Medical History Arthritis Medical History diabetes mallitus Surgical History cataract surgery [facility] [place] Other Hospital course Narrative No data available for this section [facility] [place] Hospital Discharge instructions No data available for this section [facility] [place] Progress note No data available for this section [facility] [place] Summary Purpose Family History Relationship Condition Age [...] and content) DATE CREATED AUTHOR 12/20/2022 [facility] DATE CREATED AUTHOR AUTHOR'S ORGANIZ ATION 10/15/[address] 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 Specialist Relationship Specialty Start Date End Date Jayme Perez MD [address] [place] [address] PCP - General Family Medicine 11/25/22 Jayme Perez MD [address] [place] [address] (Fax) PCP - ACO Reach 12/05/22 Locator Specialist Relationship Specialty Start Date End Date Jayme Perez MD [address] [phone] (Fax) PCP - General Family Medicine 11/25/22 Jayme Perez MD [address] [phone] (Fax) PCP - ACO Reach 12/05/22 Team Status: Inactive Member Role Status Dates Jayme Perez MD Primary Care Provider Active Start: March 31, 2024 End: March 31, 2024 Radames Monteiro MD Attending Provider Active St art: March 31, 2024 End: March 31, 2024 Locator Specialist Relationship Specialty Start Date End Date Jayme Perez MD [address] [place] [address] (Fax) PCP - General Family Medicine 11/25/22 Jayme Perez MD [address] [phone] (Fax) PCP - ACO Reach 12/05/22 Felicia Farmer DO [address] [place] [address] Referring Physician Ophthalmology 08/21/23 Renato Santacruz MD [address] [phone] Referring Physician Urology 08/21/23 Radames Monteiro MD [address] [place] [phone] Referring Physician Rheumatology 08/21/23 Locator Specialist Relationship Specialty Start Date End Date Jayme Perez MD [address] [phone] (Fax) PCP - General Family Medicine 11/25/22 Jayme Perez MD [address] [phone] (Fax) PCP - ACO Reach 12/05/22 Felicia Farmer DO [address] [place] [phone] Referring Physician Ophthalmology 08/21/23 Renato Santacruz MD [address] [place] [address] Referring Physician Urology 08/21/23 Radames [facility] [address] [facility] [address] [place] [phone] Referring Physician Rheumatology 08/21/23 Locator Specialist Relationship Specialty Start Date End Date Jayme Perez MD [address] [place] [address] (Fax) PCP - General Family Medicine 11/25/22 Jayme Perez MD [address] [place] [address] (Fax) PCP - ACO Reach 12/05/22 Felicia Farmer DO [address] [place] [address] Referring Physician Ophthalmology 08/21/23 Renato Santacruz MD [address] [place], [place] [phone] Referring Physician Urology 08/21/23 Radames Monteiro MD [address] [facility] Professional building [address] [place] [phone] Referring Physician Rheumatology 08/21/23 Goals (unrecognized [...] BE BASED ON THE PRIMARY CLINICAL RECORDS. [facility] [employer] [facility]. provides no warranty or guarantee of the accuracy or completeness of information in this document.
[2024-07-01 12:51] LABS: INR 3.21; Prothrombin Time 30.3 sec (9.0-11.6)
== END 2024-07-01 12:18 | disposition home or self-care (01) ==
LOC: LAB 12:19
PROVIDERS: PCP Family Medicine; Visit Provider Family Medicine
DX: I48.0 Paroxysmal atrial fibrillation (principal); Z79.01 Long term (current) use of anticoagulants; Z51.81 Encounter for therapeutic drug level monitoring
CPT/HCPCS: 36415; 85610

== ENCOUNTER 2024-07-05 09:03 | Outpatient (OUT) | payer MEDICARE, SELFPAY ==
--- NOTE | 2024-07-05 09:08 | XR_ITS ---
The [address] [address] Patient Name: KASEY SEN MRN: [id number] date: 1945 Sex: F Assigned Patient Location: [facility] Current Patient Location: [facility] Accession/Order Number: [id number] Exam Date: 07/05/2024 09:18 Report Date: 07/05/2024 23:19 At the request of: EUGENIA SHEPHERD Procedure: XR abdomen 1V EXAMINATION: XR abdomen 1V HISTORY: Kidney Stone COMPARISON: XR abdomen 10/08/2023 FINDINGS: KIDNEY/URETER - RIGHT: No visible renal or ureteral calcifications. KIDNEY/URETER - LEFT: No visible renal or ureteral calcifications. PELVIS: No visible ureteral stones. Numerous pelvic calcifications bilaterally suspected to represent phleboliths. BOWEL: No abnormal dilation or deviation. BONES: No acute abnormality. OTHER: Negative. No abnormal gaseous collections. XR/XR abdomen 1V IMPRESSION: 1. No convincing kidney stones. 2. Numerous pelvic calcifications. A distal ureteral stone cannot be excluded on abdominal radiographs. Electronically authenticated by: MYRTLE KHOURY Date: 07/05/2024 23:19
--- OUTSIDE RECORDS SUMMARY | 2024-07-05 09:22 | XMS_ITS | CCD ---
Author Organization [facility] Care Team Providers Care Knitter Hand Name Role Phone Astrid Baker Unavailable CAYETANO, [...] able MD Jayme Perez Primary Care Provider [phone] MD Williams Shepherd Attending Provider Lou Glover [...] Care Provider MD Radames Monteiro Attending Provider [phone] Radames Monteiro Admdiallo Unavailable Radames Monteiro Attending Unavailable Jayme Perez Primary Care Unavailable Felicia Farmer DO Unavailable Renato Santacruz MD Unavailable Radames Monteiro MD Unavailable FELICIA FARMER Attending Unavailable JAYME PEREZ Attending Unavailable FELICIA FARMER Attending Unavailable JAYME PEREZ Attending Unavailable FELICIA FARMER Attending Unavailable FELICIA FARMER Attending Unavailable FELICIA FARMER Attending Unavailable FELICIA FARMER Attending Unavailable HEMEJAYME TAMAYO Attending Unavailable Jayme Perez MD Primary Care Provider Jayme Perez MD Unavailable Jayme Perez MD Primary Care Provider Jayme Perez MD Unavailable Allergies Allergy Classification Reported Allergen(s) Allergy Type Date of Onset Reaction(s) Facility (20 sources) Ciprofloxacin; Translations: [ciprofloxacin] Drug Allergy 02-19-20 22 anaphylaxis, Unknown (qualifier value) [facility] (1 source) sulfaSALAzine Drug Allergy rash [facility] Other (1 source) Ciprofloxacin Drug Allergy 03-30-20 13 [facility] Repository (2 sources) Ketorolac; Translations: [Toradol] Drug Allergy 03-30-20 13 [facility] (2 sources) metroNIDAZOLE; Translations: [MetroGel] Drug Allergy 03-30-20 13 [facility] (1 source) NSAIDs Drug allergy (disorder) 03-30-20 13 [facility] (2 sources) pioglitazone; Translations: [Actos] Drug Allergy 03-30-20 13 [facility] (1 source) Sulfonamides (Antibiotic) Drug allergy (disorder) 03-30-20 13 [facility] (11 sources) Ketorolac; Translations: [ketorolac] Drug Allergy 03-26-20 23 Unknown (qualifier value), Nausea (finding) [facility] Comment on above: Severe (20 sources) Latex; Translations: [Latex] Drug allergy 01-07-20 23 Blister of skin AND/OR mucosa (finding) [facility] (20 sources) Non-steroidal anti-inflammatory agent; Translations: [NSAIDs] Drug allergy 02-19-20 22 Unknown (qualifier value) [facility] (20 sources) pioglitazone; Translations: [pioglitazone] Drug Allergy 01-07-20 23 Unknown (qualifier value) [facility] (5 sources) Sulfonamides (Antibiotic); Translations: [sulfa drugs] Drug allergy Unknown (qualifier value) [facility] (20 sources) metroNIDAZOLE; Translations: [Metronidazole] Drug Allergy 02-19-20 Redness of Skin [facility] (3 sources) Sulfonamides (Antibiotic); Translations: [Sulfa (Sulfonamide Antibiotics)] Allergy to substance 03-26-20 Rash [facility] (3 sources) NSAIDS (Non-Steroidal Anti-Inflamma; Translations: [NSAIDS (Non-Steroidal Anti-Inflamma] Allergy to substance 03-26-20 Anaphylaxis, Anaphylaxis, [facility] (1 source) Non-steroidal anti-inflammatory agent Drug allergy [facility] [place] Other (16 sources) Substance with sulfonamide structure and antibacterial mechanism of action (substance) Drug allergy 02-19-20 [facility] [place] Other (15 sources) Ketorolac Allergy to substance 01-07-20 Nausea Only [facility] (15 sources) Hydrocodone Bit-Homatrop Mbr Propensity to adverse reactions 08-07-19 Dizziness [facility] (15 sources) Medical Adhesive Remover Drug Allergy 02-19-20 [facility] (1 source) Ciprofloxacin Drug Allergy 07-25-19 [facility] Repository (1 source) Ketorolac Drug Allergy 03-26-20 [facility] Repository (1 source) pioglitazone Drug Allergy 03-26-20 [facility] Repository Medications Current Medications Medication Drug Class(es) Dates Sig (Normalized) Sig (Original) acarbose 100 mg oral tablet (20 sources) alpha-Glucosidase Inhibitor Start: 08-17-2019 End: 10-12-2024 acarbose (Precose) 100 MG tablet Indications: Type 2 diabetes mellitus with stage 3a chronic kidney disease, without long-term current use of insulin (HCC) ([facility]/HCC) Take 1 tablet (100 mg) by mouth in the morning and 1 tablet (100 mg) at noon and 1 tablet (100 mg) in the evening. Take with meals. 270 tablet 1 04/15/2024 10/12/2024 Active Start: 08-17-2019 acarbose Oral, TID, Refills(s) 0 Start Date: 2/4/20 Status: Ordered Acarbose Active acetaminophen 325 mg oral ta blet (19 sources) Start: 03-26-2023 Acetaminophen (Tylenol) 325 mg [...] as needed orally every 6 hours Active [id number] 200 actuat albuterol 0.09 mg/actuat metered dose inhaler (17 sources) beta2-Adrenergic Agonist Start: 07-16-2023 End: 07-15-2024 [...] Ordered calcium citrate 950 mg oral tablet (20 sources) Start: 03-26-2023 take 200 mg by [...] 12:00am cinnamon bark 500 mg oral capsule (17 sources) Start: 03-26-2023 take 1 capsule by [...] Date: 09/19/20 Status: Ordered Cyanocobalamin-Liver Extract (Vitamin H15-Zgajx) Tablet (2 sources) Start: 03-26-2023 take 1 tablet by mouth once daily Cyanocobalamin-Liver Extract (Vitamin G28-Citec) Tablet Active 1 TAB PO every day at March 26, 2023 12:00am Start: 03-26-2023 take 1 tablet by valdo th once daily Cyanocobalamin-Liver Extract (Vitamin X95-Dhlve) Tablet Active 1 TAB PO every day at March 25, 2023 11:00pm dextromethorphan hydrobromide 1.5 mg/ml / pyrilamine maleate 1.5 mg/ml oral solution (1 source) Uncompetitive H-xzpltk-W-aspartate Receptor Antagonist, Sigma-1 Agonist Start: 07-25-2023 take 10 mL by mouth every eight hours [place] DM 7.5-7.5 MG/5ML 10 mL Orally every 8 hours for 5 days Jul, Active esomeprazole 20 mg oral tablet (20 sources) Proton Pump Inhibitor Start: 08-17-2019 take 20 mg by mouth once daily Esomeprazole Magnesium Active 20 MG PO every day at noon March 26, 2023 12:00am Start: 08-17-2019 Nexium Oral, D aily, Refills(s) 0 Start Date: 08/17/19 Status: Ordered take 1 capsule by [facility] once daily esomeprazole (NexIUM) [...] 08/17/19 Status: Ordered Methotrexate Sod ium Active Mis Medication (4 sources) Start: 09-19-2020 [facility] Medicatio n See Instructions, Oral Start Date: 09/19/20 Status: Ordered Start: 09-19-2020 [facility] Medicatio n ironchlate Start Date: 09/19/20 Status: Ordered Multi Vitamins oral tablet (4 sources) Start: 09-19-2020 take 1 tablet by mouth once daily Multi Vitamins oral tablet 1 tab(s), Oral, Daily, Refill(s) 0 Start Date: 09/19/20 Status: Ordered Start: 09-19-2020 Multi Vitamins oral tablet Oral, Daily, Refill(s) 0 Start Date: 09/19/20 Status: Ordered ondansetron 4 mg oral tablet (9 sources) Serotonin-3 Receptor Antagonist Start: 08-13-2023 ondansetron [...] aking/PRN Spacer/Aero-Holding Chambers ([facility] Leonor Spacer Adult[place] [facility] [place] (15 sources) Start: 07-16-2023 Spacer/Aero-Ho lding Chambers ([facility]reat[employer] Leonor Spacer Adult) [facility] [place] Indications: Chronic obstructive pulmonary disease with acute exacerbation (CMS/HCC) 2 puffs 4 (four) times a day as needed (sob and cough) 1 each 07/16/2023 Active Start: 07-16-2023 Spacer/Aero-Ho lding Chambers ([facility] Leonor Spacer Adult) [facility] [place] Indications: Chronic obstructive pulmonary disease with acute exacerbation (CMS/HCC) 2 puffs 4 (four) times a day as needed (sob and cough) 1 each 0 07/16/2023 Active tamsulosin hydrochloride 0.4 mg oral capsule (14 sources) alpha-Adrenergic Sergey Start: 08-13-2023 End: 08-20-2023 take 1 mg by mouth once daily tamsulosin 0.4 mg Cap mg cap(s), Oral, Daily, X 7 day(s), Refills(s) 0 Start Date: 08/13/23 Stop Date: 08/20/23 Status: Ordered Start: 08-12-2023 take 1 capsule by [facility] every twenty-four hours in the morning tamsulosin (Flomax) 0.4 MG 24 hr capsule Take 0.4 mg by mouth in the morning. 08/12/2023 Active traZODone hydrochloride 50 mg oral tablet (8 sources) Serotonin Reuptake Inhibitor Start: 04-15-2024 traZODone (Desyrel) 50 MG tablet Indications: Insomnia Titrate nightly from 1/2 tablet up to 2 tablets by 1/2 tablet increments as tolerated 60 tablet 04/15/2024 Active vitamin B12 (19 sources) Vitamin B12 Start: 08-17-2019 take 3000 [...] Refills(s) 0 Start Date: 08/17/19 Status: Ordered Zinc Sulfate-Vitamin C (Vitamin C [...] / oxyCODONE hydrochloride 5 mg oral tablet (9 sources) Opioid Agonist Start: 08-12-2023 End: 04-15-2024 [...] Start: 05-21-2021 cephalexin 500 mg oral capsule (8 sources) Cephalosporin Antibacterial Start: 08-12-2023 End: 04-15-2024 [...] as directed Orally for 6 Jul, Active warfarin sodium 1 mg oral tablet (20 [...] 1 08/18/2023 08/17/2024 Active Start: 08-18-2023 End: 10-22-2024 take 1 tablet by mouth once daily in the evening warfarin (Coumadin) 1 MG tablet Indications: 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 (CMS/HCC) TAKE ONE TABLET BY MOUTH EVERY EVENING FOR A TOTAL OF 5MG 90 tablet 1 04/21/2024 07/01/2024 Discontinued (Dose adjustment) Start: 02-03-2023 End: 08-18-2023 take 3 mg by mouth once daily warfarin 3 mg, Oral, Alexandra ly Start Date: 02/03/23 Status: Ordered Start: 02-03-2023 warfarin Oral, Daily Start Date: 02/03/23 Status: Ordered Start: 10-02-2022 End: 08-07-2023 take 4 mg by mouth once daily at bedtime Warfarin Active 4 MG PO Daily at bedtime March 26, 2023 12:00am Problems Active Problems Problem Classification Problem Date Documented Date Episodic/Chronic Abdominal pain (7 sources) Abdominal pain; Translations: [Unspecified abdominal pain] Onset: 08-13-2023 09-21-2019 Episodic Anxiety disorders (4 sources) Anxiety 08-17-2019 Chronic Calculus of urinary tract (11 sources) Kidney stone; Translations: [Calculus of kidney] Onset: 03-20-2023 Episodic Cancer of uterus (4 sources) History of malignant neoplasm of uterine body 08-17-2019 Episodic Cardiac dysrhythmias (20 sources) 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; Translations: [Atrial fibrillation] Onset: 10-14-2022 Chronic Cataract (20 sources) Bilateral age-related nuclear cataracts; Translations: [Age-related nuclear cataract, bilateral] Onset: 05-19-2023 Resolved: 12-31-2023 05-19-2023 Chronic Chronic kidney disease (19 sources) Chronic kidney disease stage 3A ; Translations: [Stage 3a chronic kidney disease (HCC) ([facility]/HCC)] Onset: 12-12-2022 07-30-2023 Chronic Congestive heart failure; nonhypertensive (18 sources) Chronic diastolic (congestive) heart failure; Translations: [Chronic diastolic heart failure] Onset: 09-05-2022 08-18-2023 Chronic Diabetes mellitus with complications (20 sources) Type 2 diabetes mellitus with diabetic chronic kidney disease; Translations: [Type 2 diabetes mellitus] Onset: 08-09-2022 Chronic Diverticulosis and diverticulitis (15 sources) 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; Translations: [Diverticulosis of large intestine without perforation or abscess without bleeding] Onset: 12-12-2022 12-12-2022 Chronic Esophageal disorders (17 sources) Gastroesophageal reflux disease without esophagitis; Translations: [Gastro-esophageal reflux disease without esophagitis] Onset: 12-12-2022 08-18-2023 Chronic Glaucoma (15 sources) Preglaucoma, unspecified, bilateral; Translations: [Preglaucoma, unspecified] Onset: 05-19-2023 05-19-2023 Chronic Heart valve disorders (16 sources) Nonrheumatic aortic (valve) stenosis; Translations: [Aortic valve disorders] Onset: 09-05-2022 12-12-2022 Chronic Immunity disorders (15 sources) Immunosuppression; Translations: [Immunodeficiency, unspecified] Onset: 12-12-2022 12-12-2022 Chronic Malaise and fatigue (2 sources) Fatigue; Translations: [Chronic fatigue, unspecified] 04-15-2024 Chronic Menopausal disorders (15 sources) Disorder associated with menstruation AND/OR menopause; Translations: [Menopausal and female climacteric states] Onset: 12-12-2022 12-12-2022 Chronic Mood disorders (4 sources) Depressive disorder 08-17-2019 Chronic Nutritional deficiencies (15 sources) Vitamin D deficiency; Translations: [Vitamin D deficiency, unspecified] Onset: 12-12-2022 12-12-2022 Chronic Osteoporosis (16 sources) Osteoporosis; Translations: [Age-related osteoporosis without current pathological fracture] Onset: 12-12-2022 12-12-2022 Chronic Other aftercare (1 source) correction (current) use of anticoagulants; Translations: [INSPECTOR RAG SORTING CURRNT USE ANTICOAGULANTS] Onset: 12-11-2022 Episodic Other aftercare (5 sources) Encounter for therapeutic drug level monitoring; Translations: [ENC THERAPEUTC DRUG LEVL MONITORING] Onset: 10-18-2022 Episodic Other aftercare (1 source) Other petroleum terminal plant operator (current) drug therapy; Translations: [OTH INSPECTOR RAG SORTING CURRENT DRUG THERAPY] Onset: 10-31-2022 Episodic Other and ill-defined heart disease (4 sources) Cardiomegaly; Translations: [CARDIOMEGALY] Onset: 09-02-2022 Chronic Other and ill-defined heart disease (15 sources) Ventricular hypertrophy ; Translations: [Cardiomegaly] Onset: 12-12-2022 12-12-2022 Chronic Other diseases of kidney and ureters (2 sources) Urinary tract obstruction; Translations: [Hydronephrosis with renal and ureteral calculous obstruction] Onset: 08-13-2023 Episodic Other inflammatory condition of skin (5 sources) Other psoriatic arthropathy; Translations: [OTHER PSORIATIC ARTHROPATHY] Onset: 09-25-2022 Chronic Other inflammatory condition of skin (17 sources) Psoriatic arthritis; Translations: [Arthropathic psoriasis, unspecified] [...] Spondylosis; intervertebral disc disorders; other back problems (20 sources) Degeneration of lumbar intervertebral disc; Translations: [Other intervertebral disc degeneration, lumbar region] Onset: 12-12-2022 12-12-2022 Chronic Unclassified (4 sources) Drug therapy finding 08-20-2019 Unclassified (2 sources) Obstructive hydronephrosis 08-13-2023 Viral infection (1 source) Other specified viral diseases Episodic Past or Other Problems Problem Classification Problem Date Documented Da te Episodic/Chronic Diabetes mellitus without complication (20 sources) Diabetes mellitus; Translations: [Type 1 diabetes mellitus without complication] Onset: 05-19-2023 Resolved: 04-07-2024 08-17-2019 Chronic Genitourinary symptoms and ill-defined conditions (20 sources) Increased frequency of urination; Translations: [Nocturia] Onset: 12-12-2022 09-19-2020 Episodic Heart valve disorders (20 sources) Cardiac murmur, unspecified; Translations: [Heart murmur] Onset: 09-05-2022 08-17-2019 Episodic Immunizations and screening for infectious disease (1 source) Contact with and (suspected) exposure to other viral communicable diseases Onset: 05-21-2021 Resolved: 05-21-2021 Episodic Inflammation; infection of eye (except that caused by tuberculosis or sexually transmitteddisease) (15 sources) Blepharitis of upper and lower eyelids of bilateral eyes; Translations: [Unspecified blepharitis right eye, upper and lower eyelids] Onset: 05-19-2023 05-19-2023 Episodic Mood disorders (15 sources) Mood disorders Onset: 05-22-2023 05-22-2023 Nutritional deficiencies (15 sources) Iron deficiency; Translations: [Iron deficiency] Onset: 12-12-2022 12-12-2022 Episodic Other aftercare (1 source) correction (current) use of oral hypoglycemic drugs; Translations: [INSPECTOR RAG SORTING USE ORAL HYPOGLYCEMIC DX] Onset: 08-12-2022 Episodic Other aftercare (1 source) correction (current) use of insulin; Translations: [FDC CURRENT USE OF INSULIN] Onset: 02-13-2022 Episodic Other aftercare (20 sources) Long-term current use of anticoagulant; Translations: [extermination inspector (current) use of anticoagulants] Onset: 07-21-2023 Episodic Other bone disease and musculoskeletal deformities (15 sources) Osteopenia; Translations: [Other specified disorders of bone density and structure, unspecified site] Onset: 12-12-2022 12-12-2022 Episodic Other connective tissue disease (4 sources) Pain in left foot; Translations: [PAIN IN LEFT FOOT] Onset: 02-20-2022 Episodic Other eye disorders (15 sources) Dry eyes; Translations: [Dry eye syndrome of bilateral lacrimal glands] Onset: 05-19-2023 05-19-2023 Episodic Other nutritional; endocrine; and metabolic disorders (15 sources) Overweight; Translations: [Overweight] Onset: 12-12-2022 Resolved: 07-30-2023 07-30-2023 Episodic Pneumonia (except that caused by tuberculosis or sexually transmitted disease) (1 source) Pneumonia, unspecified organism Onset: 05-21-2021 Resolved: 05-21-2021 Episodic Residual codes; unclassified (17 sources) Body mass index 20-24 - normal; Translations: [Body mass index (BMI) 24.0-24.9, adult] Onset: 07-30-2023 07-30-2023 Episodic Residual codes; unclassified (15 sources) Sleep disorder; Translations: [Sleep disorder, unspecified] Onset: 12-12-2022 12-12-2022 Episodic Screening and history of mental health and substance abuse codes (20 sources) Ex-smoker; Translations: [Personal history of nicotine dependence] Onset: 03-27-2017 Resolved: 08-07-2023 09-21-2019 Episodic Unclassified (1 source) Unclassified (1 source) Contact with and (suspected) exposure to covid-19 Z20.822 Viral infection (1 source) COVID-19 Onset: 05-21-2021 Resolved: 05-21-2021 Results Test Name Value Interpretation Reference Range Facil ity SRMCOH PROTHROMBIN TIME INR W/O COUMon 07-01-2024 Interpretation and review of laboratory results Abnormal [facility] PT Coag (PPP) [Time] 30.3 s High [facility] TB INR 3.21 [facility] Comment on above: DESIRED INR: 2.0-3.0 CONDITIONS NOT LISTED BELOW 2.5-3.5 FOR PROSTHETIC HEART VALVE REPLACEMENT 2.5-3.5 RECURRENT THROMBOSIS [facility] ALL CBC WITH AUTO DIFFon BASOPHILS ABSOLUTE AUTO 0.1 [facility] Basophils/100 WBC (Bld) 0.8 % 0.2 - 2.0 % [facility] Eosinophils/100 WBC (Bld) 3.2 % 0.9 - 7.0 % [facility] Erythrocyte distribution width (RBC) [Ratio] 14.5 % 11.0 - 15.0 % [facility] Hematocrit (Bld) [Volume fraction] 38.1 % 36.0 - 48.0 % [facility] Hemoglobin (Bld) [Mass/Vol] 12.3 g/dL 12.0 - 16.0 g/dL [facility] IMMATURE GRANULOCYTES ABS AUTO 0.03 [facility] Immature granulocytes/100 WBC (Bld) 0.5 % 0.0 - 0.5 % [facility] Interpretation and review of laboratory results Abnormal [facility] LYMPHOCYTES ABSOLUTE AUTO 2 [facility] Lymphocytes/100 WBC (Bld) 30.8 % 20.5 - 60.0 % [facility] MCH (RBC) [Entitic mass] 31.6 pg 26.7 - 34.0 pg [facility] MCHC (RBC) [Mass/Vol] 32.3 g/dL 29.9 - 35.2 g/dL [facility] MCV (RBC) [Entitic vol] 97.9 fL 81.0 - 99.0 fL [facility] MONOCYTES ABSOLUTE AUTO 0.5 [facility] Monocytes/100 WBC (Bld) 7.7 % 1.7 - 12.0 % [facility] NEUTROPHILS ABSOLUTE AUTO 3.8 [facility] Neutrophils/100 WBC (Bld) 57 % 43.0 - 75.0 % [facility] Platelet mean volume (Bld) [Entitic vol] 8.9 fL Low 9.5 - 13.5 fL [facility] EO # 0.2 [facility] PLT 300 [facility] RBC 3.89 Low [facility] WBC 6.6 [facility] SRMCOH PROTHROMBIN TIME INR W/O COUMon 05-14-2024 Interpretation and review of laboratory results Abnormal [facility] PT Coag (PPP) [Time] 23 s High [facility] INR 2.36 [facility] Comment on above: DESIRED INR: 2.0-3.0 CONDITIONS NOT LISTED BELOW 2.5-3.5 FOR PROSTHETIC HEART VALVE REPLACEMENT 2.5-3.5 RECURRENT THROMBOSIS [facility] CREATININEon 04-22-2024 Creatinine [Mass/Vol] 0.84 mg/dL 0.55 - 1.02 mg/dL [facility] GFR/1.73 sq M.predicted CKD-EPI (S/P/Bld) [Vol rate/Area] >60 >=60 mL/min/1.73m 2 [facility] EGFR-NON AF BELARUSIAN >60 >=60 mL/min/1.73m 2 [facility] ALL CBC WITH AUTO DIFFon BASOPHILS ABSOLUTE AUTO 0.0 [facility] Basophils/100 WBC (Bld) 0.6 % 0.2 - 2.0 % [facility] Eosinophils/100 WBC (Bld) 2.1 % 0.9 - 7.0 % [facility] Erythrocyte distribution width (RBC) [Ratio] 14.1 % 11.0 - 15.0 % [facility] Hematocrit (Bld) [Volume fraction] 41.8 % 36.0 - 48.0 % [facility] Hemoglobin (Bld) [Mass/Vol] 13.5 g/dL 12.0 - 16.0 g/dL [facility] IMMATURE GRANULOCYTES ABS AUTO 0.02 [facility] Immature granulocytes/100 WBC (Bld) 0.3 % 0.0 - 0.5 % [facility] Interpretation and review of laboratory results Abnormal [facility] LYMPHOCYTES ABSOLUTE AUTO 2.1 [facility] Lymphocytes/100 WBC (Bld) 32.2 % 20.5 - 60.0 % [facility] MCH (RBC) [Entitic mass] 31.0 pg 26.7 - 34.0 pg [facility] MCHC (RBC) [Mass/Vol] 32.3 g/dL 29.9 - 35.2 g/dL [facility] MCV (RBC) [Entitic vol] 95.9 fL 81.0 - 99.0 fL [facility] MONOCYTES ABSOLUTE AUTO 0.5 [facility] Monocytes/100 WBC (Bld) 6.8 % 1.7 - 12.0 % [facility] NEUTROPHILS ABSOLUTE AUTO 3.8 [facility] Neutrophils/100 WBC (Bld) 58.0 % 43.0 - 75.0 % [facility] Platelet mean volume (Bld) [Entitic vol] 8.6 fL Low 9.5 - 13.5 fL [facility] EO # 0.1 [facility] PLT 316 [facility] RBC 4.36 [facility] WBC 6.6 [facility] SRMCOH PROTHROMBIN TIME INR W/O COUMon 04-13-2024 Interpretation and review of laboratory results Abnormal [facility] PT Coag (PPP) [Time] 27.7 s High [facility] INR 2.90 [facility] Comment on above: DESIRED INR: 2.0-3.0 CONDITIONS NOT LISTED BELOW 2.5-3.5 FOR PROSTHETIC HEART VALVE REPLACEMENT 2.5-3.5 RECURRENT THROMBOSIS [facility] Magnesium [Mass/volume] in S fartun or PlasmaOrdered By: Radames Monteiro on 03-31-2024 Magnesium [Mass/Vol] 1.9 mg/dL Normal 1.9-2.7 [facility] Comment on above: Result Comment: PERF ORMED BY: [place] [id number] PATHOLOGIST COMBINING MACHINE OPERATOR BERNIE GRAYSON M.D. Performed By: #### Joe Alcantara, PHOS #### [facility] [address] [place] [address] Phosphate [Mass/volume] in S fartun or PlasmaOrdered By: Radames Monteiro on 03-31-2024 Phosphate [Mass/Vol] 3.7 mg/dL Normal 2.5-4.5 [facility] Comment on above: Performed By: #### Joe Alcantara, PHOS #### [facility] [address] [place] [address] ALL CBC WITH AUTO DIFFon BASOPHILS ABSOLUTE AUTO 0.0 [facility] Basophils/100 WBC (Bld) 0.6 % 0.2 - 2.0 % [facility] Eosinophils/100 WBC (Bld) 5.1 % 0.9 - 7.0 % [facility] Erythrocyte distribution width (RBC) [Ratio] 14.3 % 11.0 - 15.0 % [facility] Hematocrit (Bld) [Volume fraction] 41.5 % 36.0 - 48.0 % [facility] Hemoglobin (Bld) [Mass/Vol] 13.3 g/dL 12.0 - 16.0 g/dL [facility] [facility] IMMATURE GRANULOCYTES ABS AUTO 0.01 [facility] Immature granulocytes/100 WBC (Bld) 0.1 % 0.0 - 0.5 % [facility] Interpretation and review of laboratory results Abnormal [facility] LYMPHOCYTES ABSOLUTE AUTO 2.9 [facility] Lymphocytes/100 WBC (Bld) 39.4 % 20.5 - 60.0 % [facility] MCH (RBC) [Entitic mass] 30.9 pg 26.7 - 34.0 pg [facility] MCHC (RBC) [Mass/Vol] 32.0 g/dL 29.9 - 35.2 g/dL [facility] MCV (RBC) [Entitic vol] 96.5 fL 81.0 - 99.0 fL [facility] MONOCYTES ABSOLUTE AUTO 0.4 [facility] Monocytes/100 WBC (Bld) 6.1 % 1.7 - 12.0 % [facility] NEUTROPHILS ABSOLUTE AUTO 3.5 [facility] Neutrophils/100 WBC (Bld) 48.7 % 43.0 - 75.0 % [facility] Platelet mean volume (Bld) [Entitic vol] 8.7 fL Low 9.5 - 13.5 fL [facility] TBH EO # 0.4 [facility] TB PLT 291 [facility] RBC 4.30 [facility] WBC 7.2 [facility] SRMCOH PROTHROMBIN TIME INR W/O COUMon 03-17-2024 Interpretation and review of laboratory results Abnormal [facility] PT Coag (PPP) [Time] 28.2 s High [facility] INR 2.96 [facility] Comment on above: DESIRED INR: 2.0-3.0 CONDITIONS NOT LISTED BELOW 2.5-3.5 FOR PROSTHETIC HEART VALVE REPLACEMENT 2.5-3.5 RECURRENT THROMBOSIS [facility] Ambulatory Visit Summaryon 0 10-14-2023 Ambulatory Visit Summary WILDA SEN Yasemin :1945 Visit Date:10/14/2023 Ambulatory Visit Instructions Your [...] AGUIAR, Williams Venegas Where: [facility] Patient Educationon 10-14-19 Patient Education [...] Spinach (cooked), rhubarb, beets, sweet potatoes, and Cambodian chard. ? Peanuts. ? Potato chips, polish fries, and baked potatoes with skin on. ? Nuts and nut products. ? Chocolate. ? If you regularly take a diuretic medicine, make sure to eat at least 1 or 2 servings of fruits or vegetables that are high in potassium each day. These include: ? Avocado. ? Banana. ? [place], prune, carrot, or tomato juice. ? Baked [...] fish oil, or vitamin B6. ? Take nzsr-lhy-szybvua and prescription medicines only as told by your health care provider. These include supplements. What foods sh (more content not included)... Normal [facility] Urology Office/Clinic Noteon 10-14-2023 Urology Office/Clinic Note Chief Complaint Pt is here for 3 month w/ met w/u & KUB HPI Staff 6 month follow up w/KUB Pt canceled Cysto/R retro/possible: ureteroscopy, laser, basket, stent placement 04/07/23 due to passing stones Pt was then seen at [facility] on 08/12/23 due to abdominal pain, [...] with voice recognition artificial intelligence software, specifically Pulse 8, [employer] and or [employer]. Substitutions may have occurred due to the [...] bilateral nephrolithiasis. -See #1 3. Anticoagulated (Z79.01: correction (current) use of anticoagulants) Warfarin for A-fib. [...] Contact Information Williams SHEPHERD MD, URL [address] [place] [id number] Additional Instructions: 06/2024 with KUB Patient Education Dietary Guidelines to Help Prevent Kidney Stones I, Charisse Rutherford, personally scribed for Dr. Shepherd on 10/14/2023 09:33:56. Electronically signed by (more content not included)... Normal [facility] Comment on above: Result Comment: Elec tronically Signed By: Williams SHEPHERD MD\.br\Date and Time Signed: 10/14/23 09:38 EDT\.br\Electronically Co-Signed By: Charisse Rutherford\.br\Date and Time Co-Signed: 10/14/23 09:34 EDT RAD - MISCon 10-10-2023 RAD - MISC [id number] [facility] Lab Reportson 08-27-2023 Lab Reports [id number]#[address] [facility] Lab Reportson 08-25-2023 Lab Reports [id number]#[address] [facility] Lab Reports [id number] [facility] Lab Reportson 08-22-2023 Lab Reports [id number] [facility] Lab Reportson 08-21-2023 Lab Reports [id number] [facility] Lab Reports [id number]#[address] [facility] ALL BUNon 08-20-2023 Urea nitrogen [Mass/Vol] 12.0 mg/dL 7.0 - 18.0 mg/dL [facility] ALL CARBON DIOXIDEon CO2 [Moles/Vol] 30.1 mmol/L 21.0 - 32.0 mmol/L [facility] ALL CHLORIDEon 08-20-2023 Chloride [Moles/Vol] 104 mmol/L 98 - 107 mmol/L [facility] ALL PHOSPHOROUSon 08-20-2023 Phosphate [Mass/Vol] 4.1 mg/dL 2.6 - 4.7 mg/dL [facility] ALL SODIUMon 08-20-2023 Sodium [Moles/Vol] 141 mmol/L 136 - 145 mmol/L [facility] ALL URIC ACIDon 08-20-2023 Urate [Mass/Vol] 4.4 mg/dL 2.6 - 6.0 mg/dL [facility] CALCIUMon 08-20-2023 Calcium [Mass/Vol] 9.1 mg/dL 8.5 - 10.1 mg/dL [facility] No Panel Informationon 08-20 [facility] CREATININEon 08-20-2023 Creatinine [Mass/Vol] 0.86 mg/dL 0.55 - 1.02 mg/dL [facility] GFR/1.73 sq M.predicted CKD-EPI (S/P/Bld) [Vol rate/Area] >60 60 - PINF [facility] EGFR-NON AF BELARUSIAN >60 60 - PINF [facility] Consent for Procedure/Surger yon 08-15-2023 Consent for Procedure/Surgery [id number]#[address] [facility] ED Note-Physicianon 08-15-19 ED Note-Physician [id number]#1. 00TIFF Normal [facility] Lab Reportson 08-15-2023 Lab Reports [id number]#1. 00TIFF Normal [facility] Lab Reports [id number]#[address] [facility] Lab Reports [id number]#[address] [facility] Operative Reporton Operative Report [id number]#[address] [facility] RAD - CT Reporton 08-15-2023 RAD - CT Report [id number]#1. 00TIFF [facility] Ambulatory Visit Summaryon 0 08-13-2023 Ambulatory [...] AGUIAR, Williams Venegas Where: [facility] Normal [address] 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 \.br\ Any problems you or [...] you to take them.\.br\ ? \.br\ Taking trvp-ahw-jramkyl medicines, vitamins, herbs, and supplements.\.br \ Eating [...] also have tests, such [facility] Patient Educationon 08-13-19 Patient Education [...] including vitamins, herbs, eye drops, creams, and zxiu-nyh-xgadxcu medicines. ? Any problems you or family [...] tells you to take them. ? Taking smii-gjn-jpdijwv medicines, vitamins, herbs, and supplements. Eating and [...] pieces (more content not included)... Normal [facility] Urology Office/Clinic Noteon 08-13-2023 Urology Office/Clinic Note Chief Complaint Patient is here for follow up to [facility] HPI Staff Patient is here for f/u to [facility] ER on 08/12/23 due to distal [...] abdominal pain) See #1 4. Anticoagulated (Z79.01: correction (current) use of anticoagulants) On warfarin 3mg for a-fib. States she did not take this last night. Advised pt not to take her dose today either. Follow-up With When Contact Information ANGELITO AGUIAR, Renato Arzola, URL [facility] [address] [place] [phone] Additional Instructions: sched ureteroscopy f/u w/ [facility] [...] Ongoi (more content not included)... Normal [facility] Comment on above: Result Comment: Elec tronically Signed By: Renato SANTACRUZ MD\.br\Date and Time Signed: 08/13/23 11:37 EST\.br\Electronically Co-Signed By: Amy Gallagher\.br\Date and Time Co-Signed: 08/13/23 11:35 EST COVID/FLU/RSV RT-PCRon 07-25 SARS-CoV-2 (COVID-19) RNA TREASURE+probe Ql (Unsp spec) Negative [facility] Other COVID/FLU/RSV RT-PCR Negative [facility] [employer] Other COVID/FLU/RSV RT-PCR Positive [facility] [employer] Other Calculus Analysison 03-27-20 23 Calcium oxalate dihydrate Infrared spectroscopy (Stone) [Mass fraction] 100 % Invalid Interpretation Code [facility] Comment on above: Performed By: #### 1 [id number] ####[facility] [address] [place] [address] Color (Stone) Roper Invalid Interpretation Code [facility] Comment on above: Performed By: #### 1 [id number] ####[place] [address] [place] [address] Composition Comment Invalid Interpretation Code [facility] Comment on above: Result Comment: Perc entage (Represents the % composition) Performed By: #### 1 [id number] ####[facility] [address] [place] [address] Disclaimer: Comment Invalid Interpretation Code [facility] Comment on above: Result Comment: This test was developed and its performance characteristics determined by [employer]. It has not been cleared or approved by the Food and Drug Administration. Performed at: [address] [id number] PhD Silvestre Esquivel Performed By: #### 1 [id number] ####[facility] [address] [place] [address] Laboratory comment Noam (Report) Comment Invalid Interpretation Code [facility] Comment on above: Result Comment: Coco goode questions regarding Calculi Analysis contact [facility] at: [phone]. Performed By: #### 1 [id number] ####[place] [place] [address] Please Note: Comment Invalid Interpretation Code [facility] Comment on above: Result Comment: Calc javier report will follow via computer, mail or flat machine cutter delivery. Performed By: #### 1 [id number] ####[facility] [address] [place] [address] Size (Stone) [Entitic vol] 6x[address] [facility] Comment on above: Result Comment: Dejuan le piece received. Performed By: #### 1 [id number] ####[place] [address] [place] [id number] Specimen source subject Nom Comment Invalid Interpretation Code [facility] Comment on above: Result Comment: Not provided Performed By: #### 1 [id number] ####[facility] [address] [place], [place] [id number] Stone Photo Comment Invalid Interpretation Code [facility] Comment on above: Result Comment: Phot ograph will follow under a separate cover Performed By: #### 1 [id number] ####[place] [address] [place] [address] Weight (Stone) 49 mg Invalid Interpretation Code [facility] Comment on above: Performed By: #### 1 [id number] ####[place] [id number] Lab Reportson 03-27-2023 Lab Reports [id number]#1. 00CD:[address] [facility] Activated partial thrombopla stin time (aPTT) in platelet poor plasma by coagulation aOrdered By: Williams Shepherd on 03-26-2023 aPTT Coag (PPP) [Time] 35.9 s 25.1-36.5 [facility] Comment on above: A hematocrit value g reater than 55% may lead to inaccurate results in coagulation testing. Patients having hematocrit values >55% require a special collection tube for coagulation studies. Please contact the laboratory at [phone] for redraw instructions. Basophils Auto (Bld) [#/Vol] Ordered By: Williams Shepherd on 03-26-2023 Basophils (Bld) [#/Vol] 0.0 10*3/uL 0.0-0.2 [facility] Basophils/100 WBC Auto (Bld) Ordered By: Williams Shepherd on 03-26-2023 Basophils/100 WBC (Bld) 0.8 % . [facility] Calcium [Mass/volume] in Ser um or PlasmaOrdered By: Williams Shepherd on 03-26-2023 Calcium [Mass/Vol] 10.0 mg/dL 8.6-10.3 [facility] Carbon dioxide, total [Moles /volume] in Serum or PlasmaOrdered By: Williams Sehpherd on 03-26-2023 CO2 [Moles/Vol] 30.0 mmol/L 21.0-31.0 [facility] Chloride [Moles/volume] in S fartun or PlasmaOrdered By: Williams Shepherd on 03-26-2023 Chloride [Moles/Vol] 104 mmol/L 98-107 [facility] Creatinine [Mass/volume] in Serum or PlasmaOrdered By: Williams Shepherd on 03-26-2023 Creatinine [Mass/Vol] 0.85 mg/dL 0.60-1.20 [facility] Eosinophils Auto (Bld) [#/Vo l]Ordered By: Williams Shepherd on 03-26-2023 Eosinophils (Bld) [#/Vol] 0.3 10*3/uL 0.0-0.45 [facility] Eosinophils/100 WBC Auto (Bl d)Ordered By: Williams Shepherd on 03-26-2023 Eosinophils/100 WBC (Bld) 4.3 % . [facility] Erythrocyte distribution wid th Auto (RBC) [Ratio]Ordered By: Williams Shepherd on 03-26-2023 Erythrocyte distribution width (RBC) [Ratio] 14.8 % 11.9-15.3 [facility] Glucose [Mass/volume] in Ser um or PlasmaOrdered By: Williams Shepherd on 03-26-2023 Glucose [Mass/Vol] 111 mg/dL 70-100 [facility] Comment on above: ADA recommended refe rence rangeRandom Glucose Reference Range is dependent on time and content of last meal. Glucose of more than 200 mg/dL in a nonstressed, ambulatory subject supports the diagnosis of Diabetes Mellitus. Hematocrit Auto (Bld) [Volum e fraction]Ordered By: Williams Shepherd on 03-26-2023 Hematocrit (Bld) [Volume fraction] 40.3 % 34.0-46.4 [facility] Hemoglobin [Mass/volume] in BloodOrdered By: Williams Shepherd on 03-26-2023 Hemoglobin (Bld) [Mass/Vol] 13.3 g/dL 11.8-15.4 [facility] INR in Platelet poor plasma by Coagulation assayOrdered By: Williams Shepherd on 03-26-2023 INR Coag (PPP) [Relative time] 2.3 {INR} [facility] Comment on above: INR Therapeutic Rang e [...] 10*3/uL 3.8-11.6 [facility] Lymphocytes Auto (Bld) [#/Vo l]Ordered By: Williams Shepherd on 03-26-2023 Lymphocytes (Bld) [#/Vol] 2.2 10*3/uL 1.00-4.8 [facility] Lymphocytes/100 WBC Auto (Bl d)Ordered By: Williams Shepherd on 03-26-2023 Lymphocytes/100 WBC (Bld) 36.9 % . [facility] MCH Auto (RBC) [Entitic mass ]Ordered By: Williams Shepherd on 03-26-2023 MCH (RBC) [Entitic mass] 31.1 pg 24.7-34.3 [facility] MCHC Auto (RBC) [Mass/Vol]Or dered By: Williams Shpeherd on 03-26-2023 MCHC (RBC) [Mass/Vol] 32.9 g/dL 32.0-35.0 [facility] MCV Auto (RBC) [Entitic vol] Ordered By: Williams Shepherd on 03-26-2023 MCV (RBC) [Entitic vol] 94.4 fL 80-100 [facility] Monocytes Auto (Bld) [#/Vol] Ordered By: Williams Shepherd on 03-26-2023 Monocytes (Bld) [#/Vol] 0.5 10*3/uL 0.0-0.8 [facility] Monocytes/100 WBC Auto (Bld) Ordered By: Williams Shepherd on 03-26-2023 Monocytes/100 WBC (Bld) 7.8 % . [facility] Neutrophils Auto (Bld) [#/Vo l]Ordered By: Williams Shepherd on 03-26-2023 Neutrophils (Bld) [#/Vol] 3.0 10*3/uL 1.8-7.7 [facility] Neutrophils/100 WBC Auto (Bl d)Ordered By: Williams Shepherd on 03-26-2023 Neutrophils/100 WBC (Bld) 50.2 % . [facility] No Panel InformationOrdered By: Williams Shepherd on 03-26-2023 Estimated GFR (CKD-EPI) > 60.0 mL/Min [facility] Creatinine Clearance (Chem N/A [facility] Nucleated erythrocytes [Pres ence] in Blood by Automated countOrdered By: Williams Shepherd on 03-26-2023 Nucleated RBC Auto Ql (Bld) 0.3 /100{WBC} 0-0.5 [facility] Platelet mean volume Auto (B ld) [Entitic vol]Ordered By: Williams Shepherd on 03-26-2023 Platelet mean volume (Bld) [Entitic vol] 7.1 fL 6.3-10.7 [facility] Platelets Auto (Bld) [#/Vol] Ordered By: Williams Shepherd on 03-26-2023 Platelets (Bld) [#/Vol] 363 10*3/uL 150-450 [facility] Potassium [Moles/volume] in Serum or PlasmaOrdered By: Williams Shepherd on 03-26-2023 Potassium [Moles/Vol] 5.0 mmol/L 3.5-5.1 [facility] Prothrombin time (PT)Ordered By: Williams Shepherd on 03-26-2023 PT Coag (PPP) [Time] 26.6 s 9.0-12.9 [facility] Comment on above: A hematocrit value g reater than 55% may lead to inaccurate results in coagulation testing. Patients having hematocrit values >55% require a special collection tube for coagulation studies. Please contact the laboratory at [phone] for redraw instructions. RBC Auto (Bld) [#/Vol]Ordere d By: Williams Shepherd on 03-26-2023 RBC (Bld) [#/Vol] 4.27 10*6/uL 3.60-5.00 [facility] Serum or plasma anion gap de terminationOrdered By: Williamschilo Shepherd on 03-26-2023 Anion gap [Moles/Vol] 13.0 mmol/L 6.0-15.0 [facility] Sodium [Moles/volume] in Ser um or PlasmaOrdered By: Williams Shepherd on 03-26-2023 Sodium [Moles/Vol] 142 mmol/L 136-145 [facility] Urea nitrogen [Mass/volume] in Serum or PlasmaOrdered By: Williamschilo Shepherd on 03-26-2023 Urea nitrogen [Mass/Vol] 12 mg/dL 7-25 [facility] WBC Auto (Bld) [#/Vol]Ordere d By: Williams Cora on 03-26-2023 WBC (Bld) [#/Vol] 5.9 10*3/uL 3.8-11.6 [facility] Consultation Noteon 03-17-20 Consultation Note [id number] .00CD:[address] [facility] Lab Reportson 02-12-2023 Lab Reports [id number] .00CD:[address] [facility] RAD - MISCon 02-12-2023 RAD - MISC [id number] .00CD:[address] [facility] RAD - CT Reporton 02-05-2023 RAD - CT Report [id number] .00CD:[address] [facility] RAD - MISCon 02-05-2023 RAD - MISC [id number]#1 .00CD:127 Normal [facility] Ambulatory Visit Summaryon 0 02-03-2023 [...] Williams SHEPHERD MD Where: [facility] Patient Educationon 02-04-20 23 Patient [...] these instructions at home: Medicines ? Take mhoi-bcd-cjykxhi and prescription medicines only as told by [...] content not included)... Normal [facility] Urology Office/Clinic Noteon 02-03-2023 Urology Office/Clinic Note Chief Complaint 16 month follow up w/ CT scan HPI Staff Pt is here today for 16 month follow up w/ CT scan done @[facility] on 01/15/23. CT scan shows partially [...] Information CORA AGUIAR, Williams Venegas, URL [address] [facility] [address] [place] [id number] Additional Instructions: Patient Education Kidney Stones I, Fanny Bowen, personally scribed for Dr. Shepherd on 02/03/2023 12:04:03. . Documentation recorded by the scribe, Fanny Bowen, accurately reflects the services(s) I performed and decisions made by me. Authenticated by Dr. Shepherd on 02/03/2023 12:37:35. Portions of this record may have been created with voice recognition artificial intelligence software, specifically [employer]ulse [employer], [employer] and or [employer]. Substitutions may have occurred due to the inherent limitations of voice recognition and artificial intelligence software. 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 Normal [facility] Comment on above: Result Comment: Elec tronically Signed By: Williams SHEPHERD MD\.br\Date and Time Signed: 02/03/23 12:39 EDT\.br\Electronically Co-Signed By: Fanny Bowen\.br\Date and Time Co-Signed: 02/03/23 12:04 EDT PROTIMEon 12-02-2022 INR Coag (PPP) [Relative time] 3.62 {INR} Normal [facility] Comment on above: Performed By: #### P T #### [facility] [address] [place] [address] [address] Fierro INR GUIDELINES SEE BELOW Normal [facility] Comment on above: Result Comment: LAURENCE RED INR: 2.0 - 3.0 CONDITIONS NOT LISTED BELOW 2.5 - 3.5 FOR PROSTHETIC HEART VALVE REPLACEMENT 2.5 - 3.5 RECURRENT THROMBOSIS Performed By: #### P T #### [facility] [address] [address] [address] Fierro PT Coag (PPP) [Time] 35.7 s Critically high 9.0-11.6 [facility] Comment on above: Performed By: #### P T #### [facility] [address] [address] [address] Fierro PROTIMEon 11-11-2022 INR Coag (PPP) [Relative time] 1.90 {INR} Normal [facility] Comment on above: Performed By: #### P T #### [facility] [address] [place] [address] Dr. Tg Fierro INR GUIDELINES SEE BELOW Normal [facility] Comment on above: Result Comment: LAURENCE RED INR: 2.0 - 3.0 CONDITIONS NOT LISTED BELOW 2.5 - 3.5 FOR PROSTHETIC HEART VALVE REPLACEMENT 2.5 - 3.5 RECURRENT THROMBOSIS Performed By: #### P T #### [facility] [address] [place] [address] Dr. Tg Fierro PT Coag (PPP) [Time] 19.4 s Critically high 9.0-11.6 [facility] Comment on above: Performed By: #### P T #### [facility] [address] [place] [address] Dr. Tg Fierro CBC AUTO DIFFon 10-25-2022 BASO # 0.0 103/ul Normal 0.0-0.1 [facility] Comment on above: Performed By: #### P T #### [facility] [address] [place] [address] Dr. Tg Fierro Basophils/100 WBC (Bld) 0.5 % Normal 0.2-2.0 [facility] Comment on above: Performed By: #### P T #### [facility] [address] [place] [address] Dr. Tg Fierro EO # 0.2 103/ul Normal 0.0-0.7 [facility] Comment on above: Performed By: #### P T #### [facility] [address] [place] [address] Dr. Tg Fierro Eosinophils/100 WBC (Bld) 2.7 % Normal 0.9-7.0 [facility] Comment on above: Performed By: #### P T #### [facility] [address] [place] [address] Dr. Tg Fierro Erythrocyte distribution width (RBC) [Ratio] 13.4 % Normal 11.0-15.0 [facility] Comment on above: Performed By: #### P T #### [facility] [address] [place] [address] Dr. Tg Fierro Hematocrit (Bld) [Volume fraction] 40.7 % Normal 36.0-48.0 [facility] Comment on above: Performed By: #### P T #### [facility] [address] [place] [address] Dr. Tg Fierro Hemoglobin (Bld) [Mass/Vol] 13.2 g/dL Normal 12.0-16.0 [facility] Comment on above: Performed By: #### P T #### [facility] [address] [place] [address] Dr. Tg Fierro IG # 0.03 10e3/ul Normal 0.00-0.03 [facility] Comment on above: Performed By: #### P T #### [facility] [address] [place] [address] Dr. Tg Fierro IG % 0.5 % Normal 0.0-0.5 [facility] Comment on above: Performed By: #### P T #### [facility] [address] [place] [address] Dr. Tg Fierro LYMPH # 2.1 103/ul Normal 1.2-3.8 [facility] Comment on above: Performed By: #### P T #### [facility] [address] [place] [address] Dr. Tg Fierro Lymphocytes/100 WBC (Bld) 34.9 % Normal 20.5-60.0 [facility] Comment on above: Performed By: #### P T #### [facility] [address] [place] [address] Dr. Tg Fierro MANUAL DIFF REQ NO Normal [facility] Comment on above: Performed By: #### P T #### [facility] [address] [place] [address] Dr. Tg Fierro MCH (RBC) [Entitic mass] 30.5 pg Normal 26.7-34.0 [facility] Comment on above: Performed By: #### P T #### [facility] [address] [place] [address] Dr. Tg Fierro MCHC (RBC) [Mass/Vol] 32.4 g/dL Normal 29.9-35.2 [facility] Comment on above: Performed By: #### P T #### [facility] [address] [place] [address] Dr. Tg Fierro MCV (RBC) [Entitic vol] 94.0 fL Normal 81.0-99.0 [facility] Comment on above: Performed By: #### P T #### [facility] [address] [place] [address] Dr. Tg Fierro MONO # 0.4 103/ul Normal 0.3-0.8 [facility] Comment on above: Performed By: #### P T #### [facility] [address] [place] [address] Dr. Tg Fierro Monocytes/100 WBC (Bld) 7.1 % Normal 1.7-12.0 [facility] Comment on above: Performed By: #### P T #### [facility] [address] [place] [address] Dr. Tg Fierro NEUT # 3.2 103/ul Normal 1.4-6.5 [facility] Comment on above: Performed By: #### P T #### [facility] [address] [place] [address] Dr. Tg Fierro Neutrophils/100 WBC (Bld) 54.3 % Normal 43.0-75.0 [facility] Comment on above: Performed By: #### P T #### [facility] [address] [place] [address] Dr. Tg Fierro Platelet mean volume (Bld) [Entitic vol] 8.7 fL Critically low 9.5-13.5 [facility] Comment on above: Performed By: #### P T #### [facility] [address] [place] [address] Dr. Tg Fierro PLT 295 103/ul Normal 150-450 [facility] Comment on above: Performed By: #### P T #### [facility] [address] [place] [address] Dr. Tg Fierro RBC 4.33 106/ul Normal 4.20-5.40 [facility] Comment on above: Performed By: #### P T #### [facility] [address] [place] [address] Dr. Tg Fierro WBC 5.9 103/ul Normal 4.0-11.0 [facility] Comment on above: Performed By: #### P T #### [facility] [address] [place] [address] Dr. Tg Fierro PROF 14(COMP METB)on 023 Albumin [Mass/Vol] 3.8 g/dL Normal 3.4-5.0 [facility] Comment on above: Performed By: #### C MP #### [facility] [address] [place] [address] Dr. Tg Fierro Albumin/Globulin [Mass ratio] 1.2 {ratio} Normal [facility] Comment on above: Performed By: #### C MP #### [facility] [address] [place] [address] Dr. Tg Fierro ALP [Catalytic activity/Vol] 49 U/L Normal 46-116 [facility] Comment on above: Performed By: #### C MP #### [facility] [address] [place] [address] Dr. Tg Fierro ALT [Catalytic activity/Vol] 21 U/L Normal 14-59 [facility] Comment on above: Performed By: #### C MP #### [facility] [address] [place] [address] Dr. Tg Fierro Anion gap [Moles/Vol] 13.3 mmol/L Normal [facility] Comment on above: Performed By: #### C MP #### [facility] [address] [place] [address] Dr. Tg Fierro AST [Catalytic activity/Vol] 14 U/L Critically low 15-37 [facility] Comment on above: Performed By: #### C MP #### [facility] [address] [place] [address] Dr. Tg Fierro Bilirubin [Mass/Vol] 0.5 mg/dL Normal 0.2-1.0 [facility] Comment on above: Performed By: #### C MP #### [facility] [address] [address] [address] Tg Fierro Calcium [Mass/Vol] 9.5 mg/dL Normal 8.5-10.1 [facility] Comment on above: Performed By: #### C MP #### [facility] [address] [address] [address] Tg Fierro Chloride [Moles/Vol] 104 mmol/L Normal 98-107 [facility] Comment on above: Performed By: #### C MP #### [facility] [address] [address] [address] Tg Fierro CO2 [Moles/Vol] 29.3 mmol/L Normal 21.0-32.0 [facility] Comment on above: Performed By: #### C MP #### [facility] [address] [address] [address] Tg Fierro Creatinine [Mass/Vol] 0.93 mg/dL Normal 0.55-1.02 [facility] Comment on above: Performed By: #### C MP #### [facility] [address] [address] [address] Tg Fierro EGFR-AF BELARUSIAN >60 Normal >=60 [facility] Comment on above: Performed By: #### C MP #### [facility] [address] [address] [address] Tg Fierro EGFR-NON AF BELARUSIAN 59 mL/min/1.73m2 Critically low >=60 [facility] Comment on above: Performed By: #### C MP #### [facility] [address] [address] [address] Tg Fierro Globulin (S) [Mass/Vol] 3.2 g/dL Normal [facility] Comment on above: Performed By: #### C MP #### [facility] [address] [address] [address] Tg Fierro Glucose [Mass/Vol] 186 mg/dL Critically high 74-106 [facility] Comment on above: Performed By: #### C MP #### [facility] [address] [address] [address] Tg Fierro Potassium [Moles/Vol] 4.6 mmol/L Normal 3.5-5.1 [facility] Comment on above: Performed By: #### C MP #### [facility] [address] [address] [address] Tg Fierro Protein [Mass/Vol] 7.0 g/dL Normal 6.4-8.2 [facility] Comment on above: Performed By: #### C MP #### [facility] [address] [address] [address] Tg Fierro Sodium [Moles/Vol] 142 mmol/L Normal 136-145 [facility] Comment on above: Performed By: #### C MP #### [facility] [address] [address] [address] Tg Fierro Urea nitrogen [Mass/Vol] 15.0 mg/dL Normal 7.0-18.0 [facility] Comment on above: Performed By: #### C MP #### [facility] [address] [address] [address] Tg Fierro Urea nitrogen/Creatinine [Mass ratio] 16.1 mg/mg Normal [facility] Comment on above: Performed By: #### C MP #### [facility] [address] [address] [address] [facility] mm/hr Normal <=30 [facility] Comment on above: Performed By: #### C MP #### [facility] [address] [address] [address] Tg Fierro PROTIMEon 10-14-2022 INR Coag (PPP) [Relative time] 1.94 {INR} Normal [facility] Comment on above: Performed By: #### P T #### [facility] [address] [address] [address] Tg Fierro INR GUIDELINES SEE BELOW Normal [facility] Comment on above: Result Comment: LAURENCE RED INR: 2.0 - 3.0 CONDITIONS NOT LISTED BELOW 2.5 - 3.5 FOR PROSTHETIC HEART VALVE REPLACEMENT 2.5 - 3.5 RECURRENT THROMBOSIS Performed By: #### P T #### [facility] [address] [place] [address] Dr. Tg Fierro PT Coag (PPP) [Time] 19.8 s Critically high 9.0-11.6 [facility] Comment on above: Performed By: #### P T #### [facility] [address] [place] [address] Dr. Tg Fierro CBC AUTO DIFFon 09-24-2022 BASO # 0.1 103/ul Normal 0.0-0.1 [facility] Comment on above: Performed By: #### P T #### [facility] [address] [place] [address] Dr. Tg Fierro Basophils/100 WBC (Bld) 0.7 % Normal 0.2-2.0 [facility] Comment on above: Performed By: #### P T #### [facility] [address] [place] [address] Dr. Tg Fierro EO # 0.3 103/ul Normal 0.0-0.7 [facility] Comment on above: Performed By: #### P T #### [facility] [address] [place] [address] Dr. Tg Fierro Eosinophils/100 WBC (Bld) 3.6 % Normal 0.9-7.0 [facility] Comment on above: Performed By: #### P T #### [facility] [address] [place] [address] Dr. Tg Fierro Erythrocyte distribution width (RBC) [Ratio] 13.4 % Normal 11.0-15.0 [facility] Comment on above: Performed By: #### P T #### [facility] [address] [place] [address] Dr. Tg Fierro Hematocrit (Bld) [Volume fraction] 38.4 % Normal 36.0-48.0 [facility] Comment on above: Performed By: #### P T #### [facility] [address] [place] [address] Dr. Tg Fierro Hemoglobin (Bld) [Mass/Vol] 12.7 g/dL Normal 12.0-16.0 [facility] Comment on above: Performed By: #### P T #### [facility] [address] [place] [address] Dr. Tg Fierro IG # 0.05 10e3/ul Critically high 0.00-0.03 [facility] Comment on above: Performed By: #### P T #### [facility] [address] [address] [address] Tg Fierro IG % 0.7 % Critically high 0.0-0.5 [facility] Comment on above: Performed By: #### P T #### [facility] [address] [place] [address] Dr. Tg Fierro LYMPH # 2.6 103/ul Normal 1.2-3.8 [facility] Comment on above: Performed By: #### P T #### [facility] [address] [place] [address] Dr. Tg Fierro Lymphocytes/100 WBC (Bld) 34.2 % Normal 20.5-60.0 [facility] Comment on above: Performed By: #### P T #### [facility] [address] [place] [address] Dr. Tg Fierro MANUAL DIFF REQ NO Normal [facility] Comment on above: Performed By: #### P T #### [facility] [address] [place] [address] Dr. Tg Fierro MCH (RBC) [Entitic mass] 31.2 pg Normal 26.7-34.0 [facility] Comment on above: Performed By: #### P T #### [facility] [address] [place] [address] Dr. Tg Fierro MCHC (RBC) [Mass/Vol] 33.1 g/dL Normal 29.9-35.2 [facility] Comment on above: Performed By: #### P T #### [facility] [address] [place] [address] Dr. Tg Fierro MCV (RBC) [Entitic vol] 94.3 fL Normal 81.0-99.0 [facility] Comment on above: Performed By: #### P T #### [facility] [address] [address] [address] Tg Fierro MONO # 0.6 103/ul Normal 0.3-0.8 [facility] Comment on above: Performed By: #### P T #### [facility] [address] [address] [address] Tg Fierro Monocytes/100 WBC (Bld) 8.1 % Normal 1.7-12.0 [facility] Comment on above: Performed By: #### P T #### [facility] [address] [place] [address] Dr. Tg Fierro NEUT # 4.1 103/ul Normal 1.4-6.5 [facility] Comment on above: Performed By: #### P T #### [facility] [address] [place] [address] Dr. Tg Fierro Neutrophils/100 WBC (Bld) 52.7 % Normal 43.0-75.0 [facility] Comment on above: Performed By: #### P T #### [facility] [address] [place] [address] Dr. Tg Fierro Platelet mean volume (Bld) [Entitic vol] 8.7 fL Critically low 9.5-13.5 [facility] Comment on above: Performed By: #### P T #### [facility] [address] [place] [address] Dr. Tg Fierro PLT 278 103/ul Normal 150-450 [facility] Comment on above: Performed By: #### P T #### [facility] [address] [address] [address] Tg Fierro RBC 4.07 106/ul Critically low 4.20-5.[address] [facility] Comment on above: Performed By: #### P T #### [facility] [address] [place] [address] Dr. Tg Fierro WBC 7.7 103/ul Normal 4.0-11.0 [facility] Comment on above: Performed By: #### P T #### [facility] [address] [address] [address] Tg Fierro PROF 14(COMP METB)on 023 Albumin [Mass/Vol] 3.9 g/dL Normal 3.4-5.0 [facility] Comment on above: Performed By: #### C MP #### [facility] [address] [address] [address] Tg Fierro Albumin/Globulin [Mass ratio] 1.4 {ratio} Normal [facility] Comment on above: Performed By: #### C MP #### [facility] [address] [address] [address] Tg Fierro ALP [Catalytic activity/Vol] 59 U/L Normal 46-116 [facility] Comment on above: Performed By: #### C MP #### [facility] [address] [place] [address] Dr. Tg Fierro ALT [Catalytic activity/Vol] 21 U/L Normal 14-59 [facility] Comment on above: Performed By: #### C MP #### [facility] [address] [address] [address] Tg Fierro Anion gap [Moles/Vol] 10.8 mmol/L Normal [facility] Comment on above: Performed By: #### C MP #### [facility] [address] [place] [address] Dr. Tg Fierro AST [Catalytic activity/Vol] 9 U/L Critically low 15-37 [facility] Comment on above: Performed By: #### C MP #### [facility] [address] [address] [address] Tg Fierro Bilirubin [Mass/Vol] 0.3 mg/dL Normal 0.2-1.0 [facility] Comment on above: Performed By: #### C MP #### [facility] [address] [place] [address] Dr. Tg Fierro Calcium [Mass/Vol] 9.1 mg/dL Normal 8.5-10.1 [facility] Comment on above: Performed By: #### C MP #### [facility] [address] [address] [address] Tg Fierro Chloride [Moles/Vol] 104 mmol/L Normal 98-107 [facility] Comment on above: Performed By: #### C MP #### [facility] [address] [address] [address] Tg Fierro CO2 [Moles/Vol] 28.3 mmol/L Normal 21.0-32.0 [facility] Comment on above: Performed By: #### C MP #### [facility] [address] [place] [address] Dr. Tg Fierro Creatinine [Mass/Vol] 0.86 mg/dL Normal 0.55-1.02 [facility] Comment on above: Performed By: #### C MP #### [facility] [address] [place] [address] Dr. Tg Fierro EGFR-AF BELARUSIAN >60 Normal >=60 [facility] Comment on above: Performed By: #### C MP #### [facility] [address] [place] [address] Dr. Tg Fierro EGFR-NON AF BELARUSIAN >60 Normal >=60 [facility] Comment on above: Performed By: #### C MP #### [facility] [address] [place] [address] Dr. Tg Fierro Globulin (S) [Mass/Vol] 2.7 g/dL Normal [facility] Comment on above: Performed By: #### C MP #### [facility] [address] [address] [address] Tg Fierro Glucose [Mass/Vol] 120 mg/dL Critically high 74-106 T [facility] Comment on above: Performed By: #### C MP #### [facility] [address] [place] [address] Dr. Tg Fierro Potassium [Moles/Vol] 4.1 mmol/L Normal 3.5-5.1 [facility] Comment on above: Performed By: #### C MP #### [facility] [address] [place] [address] Dr. Tg Fierro Protein [Mass/Vol] 6.6 g/dL Normal 6.4-8.2 [facility] Comment on above: Performed By: #### C MP #### [facility] [address] [address] [address] Tg Fierro Sodium [Moles/Vol] 139 mmol/L Normal 136-145 [facility] Comment on above: Performed By: #### C MP #### [facility] [address] [address] [address] Tg Fierro Urea nitrogen [Mass/Vol] 13.0 mg/dL Normal 7.0-18.0 [facility] Comment on above: Performed By: #### C MP #### [facility] [address] [place] [address] Dr. Tg Fierro Urea nitrogen/Creatinine [Mass ratio] 15.1 mg/mg Normal [facility] Comment on above: Performed By: #### C MP #### [facility] [address] [place] [address] Dr. Tg Fierro PROTIMEon 09-24-2022 INR Coag (PPP) [Relative time] 1.35 {INR} Normal [facility] Comment on above: Performed By: #### P T #### [facility] [address] [place] [address] Dr. Tg Fierro INR GUIDELINES SEE BELOW Normal [facility] Comment on above: Result Comment: LAURENCE RED INR: 2.0 - 3.0 CONDITIONS NOT LISTED BELOW 2.5 - 3.5 FOR PROSTHETIC HEART VALVE REPLACEMENT 2.5 - 3.5 RECURRENT THROMBOSIS Performed By: #### P T #### [facility] [address] [place] [address] Dr. Tg Fierro PT Coag (PPP) [Time] 14.1 s Critically high 9.0-11.6 [facility] Comment on above: Performed By: #### P T #### [facility] [address] [place] [address] Dr. Tg Fierro SED RATE WESTERGRENon 2022 SED RATE 8 mm/hr Normal <=30 [facility] Comment on above: Performed By: #### C MP #### [facility] [address] [address] [address] Tg Fierro PROTIMEon 09-09-2022 INR Coag (PPP) [Relative time] 1.23 {INR} Normal [facility] Comment on above: Performed By: #### P T #### [facility] [address] [address] [address] Tg Fierro INR GUIDELINES SEE BELOW Normal [facility] Comment on above: Result Comment: LAURECNE RED INR: 2.0 - 3.0 CONDITIONS NOT LISTED BELOW 2.5 - 3.5 FOR PROSTHETIC HEART VALVE REPLACEMENT 2.5 - 3.5 RECURRENT THROMBOSIS Performed By: #### P T #### [facility] [address] [address] [address] Tg Fierro PT Coag (PPP) [Time] 12.9 s Critically high 9.0-11.6 [facility] Comment on above: Performed By: #### P T #### [facility] [address] [place] [address] Dr. Tg Fierro ECHOCARDIO M/2D COMPLETEon 0 09-02-2022 ECHOCARDIO M/2D COMPLETE Patient: WILDA SEN Exam Date: 09/02/2022 : 1945 Gender:F Ordering : DR JAYME PEREZ . Admission #: [id number] Family : Order #: [id number] CLICK HERE TO VIEW EXAM ECHOCARDIOGRAM REPORT [...] on 09/03/2022 at 17:25 Normal [facility] GLYCOHEMOGLOBIN A1Con 2022 ADA RECOMMENDATION SEE BELOW Normal [facility] Comment on above: Result Comment: ADA RECOMMENDED LIMIT 4.0 - 6.0 ADA THERAPEUTIC TARGET < 7.0 ACTION SUGGESTED > 7.0 Performed By: #### A 1C #### [facility] [address] [address] [address] Tg Fierro Glucose [Mass/Vol] 148 mg/dL Normal [facility] Comment on above: Performed By: #### A 1C #### [facility] [address] [address] [address] Tg Fierro HbA1c (Bld) [Mass fraction] 6.8 % Critically high 4.5-6.2 [facility] Comment on above: Performed By: #### A 1C #### [facility] [address] [place] [address] Dr. Tg Fierro CBC AUTO DIFFon 08-05-2022 BASO # 0.1 103/ul Normal 0.0-0.1 [facility] Comment on above: Performed By: #### C BC #### [facility] [address] [address] [address] Tg Fierro Basophils/100 WBC (Bld) 0.8 % Normal 0.2-2.0 [facility] Comment on above: Performed By: #### C BC #### [facility] [address] [place] [address] Dr. Tg Fierro EO # 0.5 103/ul Normal 0.0-0.7 [facility] Comment on above: Performed By: #### C BC #### [facility] [address] [place] [address] Dr. Tg Fierro Eosinophils/100 WBC (Bld) 7.3 % Critically high 0.9-7.0 [facility] Comment on above: Performed By: #### C BC #### [facility] [address] [place] [address] Dr. Tg Fierro Erythrocyte distribution width (RBC) [Ratio] 13.4 % Normal 11.0-15.0 [facility] Comment on above: Performed By: #### C BC #### [facility] [address] [place] [address] Dr. Tg Fierro Hematocrit (Bld) [Volume fraction] 37.1 % Normal 36.0-48.0 [facility] Comment on above: Performed By: #### C BC #### [facility] [address] [place] [address] Dr. Tg Fierro Hemoglobin (Bld) [Mass/Vol] 12.9 g/dL Normal 12.0-16.0 [facility] Comment on above: Performed By: #### C BC #### [facility] [address] [place] [address] Dr. Tg Fierro IG # 0.03 10e3/ul Normal 0.00-0.03 [facility] Comment on above: Performed By: #### C BC #### [facility] [address] [place] [address] Dr. Tg Fierro IG % 0.5 % Normal 0.0-0.5 [facility] Comment on above: Performed By: #### C BC #### [facility] [address] [place] [address] Dr. Tg Fierro LYMPH # 2.3 103/ul Normal 1.2-3.8 [facility] Comment on above: Performed By: #### C BC #### [facility] [address] [place] [address] Dr. Tg Fierro Lymphocytes/100 WBC (Bld) 34.9 % Normal 20.5-60.0 [facility] Comment on above: Performed By: #### C BC #### [facility] [address] [place] [address] Dr. Tg Fierro MANUAL DIFF REQ NO Normal [facility] Comment on above: Performed By: #### C BC #### [facility] [address] [place] [address] Dr. Tg Fierro MCH (RBC) [Entitic mass] 31.0 pg Normal 26.7-34.0 [facility] Comment on above: Performed By: #### C BC #### [facility] [address] [place] [address] Dr. Tg Fierro MCHC (RBC) [Mass/Vol] 34.8 g/dL Normal 29.9-35.2 [facility] Comment on above: Performed By: #### C BC #### [facility] [address] [place] [address] Dr. Tg Fierro MCV (RBC) [Entitic vol] 89.2 fL Normal 81.0-99.0 [facility] Comment on above: Performed By: #### C BC #### [facility] [address] [place] [address] Dr. Tg Fierro MONO # 0.4 103/ul Normal 0.3-0.8 [facility] Comment on above: Performed By: #### C BC #### [facility] [address] [place] [address] Dr. Tg Fierro Monocytes/100 WBC (Bld) 6.1 % Normal 1.7-12.0 [facility] Comment on above: Performed By: #### C BC #### [facility] [address] [address] [address] Tg Fierro NEUT # 3.3 103/ul Normal 1.4-6.5 [facility] Comment on above: Performed By: #### C BC #### [facility] [address] [address] [address] Tg Fierro Neutrophils/100 WBC (Bld) 50.4 % Normal 43.0-75.0 [facility] Comment on above: Performed By: #### C BC #### [facility] [address] [address] [address] Tg Fierro Platelet mean volume (Bld) [Entitic vol] 8.6 fL Critically low 9.5-13.5 [facility] Comment on above: Performed By: #### C BC #### [facility] [address] [place] [address] Dr. Tg Fierro PLT 336 103/ul Normal 150-450 [facility] Comment on above: Performed By: #### C BC #### [facility] [address] [address] [address] Tg Fierro RBC 4.16 106/ul Critically low 4.20-5.[address] [facility] Comment on above: Performed By: #### C BC #### [facility] [address] [place] [address] Dr. Tg Fierro WBC 6.4 103/ul Normal 4.0-11.0 [facility] Comment on above: Performed By: #### C BC #### [facility] [address] [place] [address] Dr. Tg Fierro PROF 14(COMP METB)on 023 Albumin [Mass/Vol] 3.9 g/dL Normal 3.4-5.0 [facility] Comment on above: Performed By: #### P T #### [facility] [address] [place] [address] Dr. Tg Fierro Albumin/Globulin [Mass ratio] 1.3 {ratio} Normal [facility] Comment on above: Performed By: #### P T #### [facility] [address] [place] [address] Dr. Tg Fierro ALP [Catalytic activity/Vol] 60 U/L Normal 46-116 [facility] Comment on above: Performed By: #### P T #### [facility] [address] [place] [address] Dr. Tg Fierro ALT [Catalytic activity/Vol] 21 U/L Normal 14-59 [facility] Comment on above: Performed By: #### P T #### [facility] [address] [place] [address] Dr. Tg Fierro Anion gap [Moles/Vol] 15.2 mmol/L Normal [facility] Comment on above: Performed By: #### P T #### [facility] [address] [place] [address] Dr. Tg Fierro AST [Catalytic activity/Vol] 14 U/L Critically low 15-37 [facility] Comment on above: Performed By: #### P T #### [facility] [address] [place] [address] Dr. Tg Fieror Bilirubin [Mass/Vol] 0.4 mg/dL Normal 0.2-1.0 [facility] Comment on above: Performed By: #### P T #### [facility] [address] [place] [address] Dr. Tg Fierro Calcium [Mass/Vol] 9.3 mg/dL Normal 8.5-10.1 [facility] Comment on above: Performed By: #### P T #### [facility] [address] [place] [address] Dr. Tg Fierro Chloride [Moles/Vol] 102 mmol/L Normal 98-107 [facility] Comment on above: Performed By: #### P T #### [facility] [address] [place] [address] Dr. Tg Fierro CO2 [Moles/Vol] 26.8 mmol/L Normal 21.0-32.0 [facility] Comment on above: Performed By: #### P T #### [facility] [address] [place] [address] Dr. Tg Fierro Creatinine [Mass/Vol] 0.74 mg/dL Normal 0.55-1.02 [facility] Comment on above: Performed By: #### P T #### [facility] [address] [address] [address] Tg Fierro EGFR-AF BELARUSIAN >60 Normal >=60 [facility] Comment on above: Performed By: #### P T #### [facility] [address] [address] [address] Tg Fierro EGFR-NON AF BELARUSIAN >60 Normal >=60 [facility] Comment on above: Performed By: #### P T #### [facility] [address] [address] [address] Tg Fierro Globulin (S) [Mass/Vol] 3.1 g/dL Normal [facility] Comment on above: Performed By: #### P T #### [facility] [address] [address] [address] Tg Fierro Glucose [Mass/Vol] 148 mg/dL Critically high 74-106 [facility] Comment on above: Performed By: #### P T #### [facility] [address] [address] [address] Tg Fierro Potassium [Moles/Vol] 4.0 mmol/L Normal 3.5-5.1 [facility] Comment on above: Performed By: #### P T #### [facility] [address] [address] [address] Tg Fierro Protein [Mass/Vol] 7.0 g/dL Normal 6.4-8.2 [facility] Comment on above: Performed By: #### P T #### [facility] [address] [address] [address] Tg Fierro Sodium [Moles/Vol] 140 mmol/L Normal 136-145 [facility] Comment on above: Performed By: #### P T #### [facility] [address] [address] [address] Tg Fierro Urea nitrogen [Mass/Vol] 12.0 mg/dL Normal 7.0-18.0 [facility] Comment on above: Performed By: #### P T #### [facility] [address] [place] [address] Dr. Tg Fierro Urea nitrogen/Creatinine [Mass ratio] 16.2 mg/mg Normal [facility] Comment on above: Performed By: #### P T #### [facility] [address] [place] [address] Dr. Tg Fierro SED RATE WESTERGRENon 2022 SED RATE 30 mm/hr Normal <=30 [facility] Comment on above: Performed By: #### S EDR #### [facility] [address] [place] [address] Dr. Tg Fierro CBC AUTO DIFFon 04-15-2022 BASO # 0.1 103/ul Normal 0.0-0.1 [facility] Comment on above: Performed By: #### C BC #### [facility] [address] [place] [address] Dr. Tg Fierro Basophils/100 WBC (Bld) 0.6 % Normal 0.2-2.0 [facility] Comment on above: Performed By: #### C BC #### [facility] [address] [place] [address] Dr. Tg Fierro EO # 0.2 103/ul Normal 0.0-0.7 [facility] Comment on above: Performed By: #### C BC #### [facility] [address] [place] [address] Dr. Tg Fierro Eosinophils/100 WBC (Bld) 3.1 % Normal 0.9-7.0 [facility] Comment on above: Performed By: #### C BC #### [facility] [address] [place] [address] Dr. Tg Fierro Erythrocyte distribution width (RBC) [Ratio] 13.6 % Normal 11.0-15.0 [facility] Comment on above: Performed By: #### C BC #### [facility] [address] [place] [address] Dr. Tg Fierro Hematocrit (Bld) [Volume fraction] 42.3 % Normal 36.0-48.0 [facility] Comment on above: Performed By: #### C BC #### [facility] [address] [address] [address] Tg Fierro Hemoglobin (Bld) [Mass/Vol] 13.2 g/dL Normal 12.0-16.0 [facility] Comment on above: Performed By: #### C BC #### [facility] [address] [address] [address] Tg Fierro IG # 0.04 10e3/ul Critically high 0.00-0.03 [facility] Comment on above: Performed By: #### C BC #### [facility] [address] [address] [address] Tg Fierro IG % 0.5 % Normal 0.0-0.5 [facility] Comment on above: Performed By: #### C BC #### [facility] [address] [place] [address] Dr. Tg Fierro LYMPH # 2.5 103/ul Normal 1.2-3.8 [facility] Comment on above: Performed By: #### C BC #### [facility] [address] [place] [address] Dr. Tg Fierro Lymphocytes/100 WBC (Bld) 31.6 % Normal 20.5-60.0 [facility] Comment on above: Performed By: #### C BC #### [facility] [address] [place] [address] Dr. Tg Fierro MANUAL DIFF REQ NO Normal [facility] Comment on above: Performed By: #### C BC #### [facility] [address] [place] [address] Dr. Tg Fierro MCH (RBC) [Entitic mass] 30.3 pg Normal 26.7-34.0 [facility] Comment on above: Performed By: #### C BC #### [facility] [address] [address] [address] Tg Fierro MCHC (RBC) [Mass/Vol] 31.2 g/dL Normal 29.9-35.2 [facility] Comment on above: Performed By: #### C BC #### [facility] [address] [address] [address] Tg Fierro MCV (RBC) [Entitic vol] 97.0 fL Normal 81.0-99.0 [facility] Comment on above: Performed By: #### C BC #### [facility] [address] [address] [address] Tg Fierro MONO # 0.5 103/ul Normal 0.3-0.8 [facility] Comment on above: Performed By: #### C BC #### [facility] [address] [address] [address] Tg Fierro Monocytes/100 WBC (Bld) 6.3 % Normal 1.7-12.0 [facility] Comment on above: Performed By: #### C BC #### [facility] [address] [place] [address] Dr. Tg Fierro NEUT # 4.5 103/ul Normal 1.4-6.5 [facility] Comment on above: Performed By: #### C BC #### [facility] [address] [place] [address] Dr. Tg Fierro Neutrophils/100 WBC (Bld) 57.9 % Normal 43.0-75.0 [facility] Comment on above: Performed By: #### C BC #### [facility] [address] [place] [address] Dr. Tg Fierro Platelet mean volume (Bld) [Entitic vol] 8.6 fL Critically low 9.5-13.5 [facility] Comment on above: Performed By: #### C BC #### [facility] [address] [place] [address] Dr. Tg Fierro PLT 295 103/ul Normal 150-450 [facility] Comment on above: Performed By: #### C BC #### [facility] [address] [place] [address] Dr. Tg Fierro RBC 4.36 106/ul Normal 4.20-5.40 [facility] Comment on above: Performed By: #### C BC #### [facility] [address] [place] [address] Dr. Tg Fierro WBC 7.8 103/ul Normal 4.0-11.0 [facility] Comment on above: Performed By: #### C BC #### [facility] [address] [place] [address] Dr. Tg Fierro PROF 14(COMP METB)on 022 Albumin [Mass/Vol] 4.5 g/dL Normal 3.4-5.0 [facility] Comment on above: Performed By: #### C MP #### [facility] [address] [place] [address] Dr. Tg Fierro Albumin/Globulin [Mass ratio] 1.5 {ratio} Normal [facility] Comment on above: Performed By: #### C MP #### [facility] [address] [place] [address] Dr. Tg Fierro ALP [Catalytic activity/Vol] 62 U/L Normal 46-116 [facility] Comment on above: Performed By: #### C MP #### [facility] [address] [place] [address] Dr. Tg Fierro ALT [Catalytic activity/Vol] 25 U/L Normal 14-59 [facility] Comment on above: Performed By: #### C MP #### [facility] [address] [place] [address] Dr. Tg Fierro Anion gap [Moles/Vol] 10.6 mmol/L Normal [facility] Comment on above: Performed By: #### C MP #### [facility] [address] [place] [address] Dr. Tg Fierro AST [Catalytic activity/Vol] 12 U/L Critically low 15-37 [facility] Comment on above: Performed By: #### C MP #### [facility] [address] [place] [address] Dr. Tg Fierro Bilirubin [Mass/Vol] 0.5 mg/dL Normal 0.2-1.0 [facility] Comment on above: Performed By: #### C MP #### [facility] [address] [place] [address] Dr. Tg Fierro Calcium [Mass/Vol] 9.8 mg/dL Normal 8.5-10.1 [facility] Comment on above: Performed By: #### C MP #### [facility] [address] [place] [address] Dr. Tg Fierro Chloride [Moles/Vol] 102 mmol/L Normal 98-107 [facility] Comment on above: Performed By: #### C MP #### [facility] [address] [address] [address] Tg Fierro CO2 [Moles/Vol] 31.8 mmol/L Normal 21.0-32.0 [facility] Comment on above: Performed By: #### C MP #### [facility] [address] [place] [address] Dr. Tg Fierro Creatinine [Mass/Vol] 0.88 mg/dL Normal 0.55-1.02 [facility] Comment on above: Performed By: #### C MP #### [facility] [address] [place] [address] Dr. Tg Fierro EGFR-AF BELARUSIAN >60 Normal >=60 [facility] Comment on above: Performed By: #### C MP #### [facility] [address] [place] [address] Dr. Tg Fierro EGFR-NON AF BELARUSIAN >60 Normal >=60 [facility] Comment on above: Performed By: #### C MP #### [facility] [address] [place] [address] Dr. Tg Fierro Globulin (S) [Mass/Vol] 3.1 g/dL Normal [facility] Comment on above: Performed By: #### C MP #### [facility] [address] [address] [address] Tg Fierro Glucose [Mass/Vol] 187 mg/dL Critically high 74-106 [facility] Comment on above: Performed By: #### C MP #### [facility] [address] [place] [address] Dr. Tg Fierro Potassium [Moles/Vol] 4.4 mmol/L Normal 3.5-5.1 [facility] Comment on above: Performed By: #### C MP #### [facility] [address] [address] [address] Tg Fierro Protein [Mass/Vol] 7.6 g/dL Normal 6.4-8.2 [facility] Comment on above: Performed By: #### C MP #### [facility] [address] [address] [address] Tg Fierro Sodium [Moles/Vol] 140 mmol/L Normal 136-145 [facility] Comment on above: Performed By: #### C MP #### [facility] [address] [place] [address] Dr. Tg Fierro Urea nitrogen [Mass/Vol] 14.0 mg/dL Normal 7.0-18.0 [facility] Comment on above: Performed By: #### C MP #### [facility] [address] [place] [address] Dr. Tg Fierro Urea nitrogen/Creatinine [Mass ratio] 15.9 mg/mg Normal [facility] Comment on above: Performed By: #### C MP #### [facility] [address] [place] [address] Dr. Tg Fierro SED [facility] 2021 SED RATE 5 mm/hr Normal <=30 [facility] Comment on above: Performed By: #### S EDR #### [facility] [address] [place] [address] Dr. Tg Fierro CBC AUTO DIFFon 02-07-2022 BASO # 0.0 103/ul Normal 0.0-0.1 [facility] Comment on above: Performed By: #### P T #### [facility] [address] [place] [address] Dr. Tg Fierro Basophils/100 WBC (Bld) 0.6 % Normal 0.2-2.0 [facility] Comment on above: Performed By: #### P T #### [facility] [address] [place] [address] Dr. Tg Fierro EO # 0.4 103/ul Normal 0.0-0.7 [facility] Comment on above: Performed By: #### P T #### [facility] [address] [place] [address] Dr. Tg Fierro Eosinophils/100 WBC (Bld) 5.4 % Normal 0.9-7.0 [facility] Comment on above: Performed By: #### P T #### [facility] [address] [place] [address] Dr. Tg Fierro Erythrocyte distribution width (RBC) [Ratio] 13.5 % Normal 11.0-15.0 [facility] Comment on above: Performed By: #### P T #### [facility] [address] [place] [address] Dr. Tg Fierro Hematocrit (Bld) [Volume fraction] 39.4 % Normal 36.0-48.0 [facility] Comment on above: Performed By: #### P T #### [facility] [address] [place] [address] Dr. Tg Fierro Hemoglobin (Bld) [Mass/Vol] 12.8 g/dL Normal 12.0-16.0 [facility] Comment on above: Performed By: #### P T #### [facility] [address] [place] [address] Dr. Tg Fierro IG # 0.02 10e3/ul Normal 0.00-0.03 [facility] Comment on above: Performed By: #### P T #### [facility] [address] [place] [address] Dr. Tg Fierro IG % 0.3 % Normal 0.0-0.5 [facility] Comment on above: Performed By: #### P T #### [facility] [address] [place] [address] Dr. Tg Fierro LYMPH # 2.4 103/ul Normal 1.2-3.8 [facility] Comment on above: Performed By: #### P T #### [facility] [address] [place] [address] Dr. Tg Fierro Lymphocytes/100 WBC (Bld) 36.2 % Normal 20.5-60.0 [facility] Comment on above: Performed By: #### P T #### [facility] [address] [place] [address] Dr. Tg Fierro MANUAL DIFF REQ NO Normal [facility] Comment on above: Performed By: #### P T #### [facility] [address] [place] [address] Dr. Tg Fierro MCH (RBC) [Entitic mass] 31.0 pg Normal 26.7-34.0 [facility] Comment on above: Performed By: #### P T #### [facility] [address] [place] [address] Dr. Tg Fierro MCHC (RBC) [Mass/Vol] 32.5 g/dL Normal 29.9-35.2 [facility] Comment on above: Performed By: #### P T #### [facility] [address] [place] [address] Dr. Tg Fierro MCV (RBC) [Entitic vol] 95.4 fL Normal 81.0-99.0 [facility] Comment on above: Performed By: #### P T #### [facility] [address] [place] [address] Dr. Tg Fierro MONO # 0.5 103/ul Normal 0.3-0.8 [facility] Comment on above: Performed By: #### P T #### [facility] [address] [place] [address] Dr. Tg Fierro Monocytes/100 WBC (Bld) 8.0 % Normal 1.7-12.0 [facility] Comment on above: Performed By: #### P T #### [facility] [address] [place] [address] Dr. Tg Fierro NEUT # 3.3 103/ul Normal 1.4-6.5 [facility] Comment on above: Performed By: #### P T #### [facility] [address] [place] [address] Dr. Tg Fierro Neutrophils/100 WBC (Bld) 49.5 % Normal 43.0-75.0 [facility] Comment on above: Performed By: #### P T #### [facility] [address] [address] [address] Tg Fierro Platelet mean volume (Bld) [Entitic vol] 8.7 fL Critically low 9.5-13.5 [facility] Comment on above: Performed By: #### P T #### [facility] [address] [address] [address] Tg Fierro PLT 276 103/ul Normal 150-450 [facility] Comment on above: Performed By: #### P T #### [facility] [address] [address] [address] Tg Fierro RBC 4.13 106/ul Critically low 4.20-5.40 [facility] Comment on above: Performed By: #### P T #### [facility] [address] [place] [address] Dr. Tg Fierro WBC 6.7 103/ul Normal 4.0-11.0 [facility] Comment on above: Performed By: #### P T #### [facility] [address] [place] [address] Dr. Tg Fierro GLYCOHEMOGLOBIN A1Con 2021 ADA RECOMMENDATION SEE BELOW Normal [facility] Comment on above: Result Comment: ADA RECOMMENDED LIMIT 4.0 - 6.0 ADA THERAPEUTIC TARGET < 7.0 ACTION SUGGESTED > 7.0 Performed By: #### A 1C #### [facility] [address] [place] [address] Dr. Tg Fierro Glucose [Mass/Vol] 151 mg/dL Normal [facility] Comment on above: Performed By: #### A 1C #### [facility] [address] [address] [address] Tg Fierro HbA1c (Bld) [Mass fraction] 6.9 % Critically high 4.5-6.2 [facility] Comment on above: Performed By: #### A 1C #### [facility] [address] [place] [address] Dr. Tg Fierro PROF 14(COMP METB)on 022 Albumin [Mass/Vol] 3.8 g/dL Normal 3.4-5.0 [facility] Comment on above: Performed By: #### P T #### [facility] [address] [place] [address] Dr. Tg Fierro Albumin/Globulin [Mass ratio] 1.3 {ratio} Normal [facility] Comment on above: Performed By: #### P T #### [facility] [address] [place] [address] Dr. Tg Fierro ALP [Catalytic activity/Vol] 43 U/L Critically low 46-116 [facility] Comment on above: Performed By: #### P T #### [facility] [address] [place] [address] Dr. Tg Fierro ALT [Catalytic activity/Vol] 19 U/L Normal 14-59 [facility] Comment on above: Performed By: #### P T #### [facility] [address] [place] [address] Dr. Tg Fierro Anion gap [Moles/Vol] 13.7 mmol/L Normal [facility] Comment on above: Performed By: #### P T #### [facility] [address] [place] [address] Dr. Tg Fierro AST [Catalytic activity/Vol] 11 U/L Critically low 15-37 [facility] Comment on above: Performed By: #### P T #### [facility] [address] [place] [address] Dr. Tg Fierro Bilirubin [Mass/Vol] 0.4 mg/dL Normal 0.2-1.0 [facility] Comment on above: Performed By: #### P T #### [facility] [address] [place] [address] Dr. Tg Fierro Calcium [Mass/Vol] 9.1 mg/dL Normal 8.5-10.1 [facility] Comment on above: Performed By: #### P T #### [facility] [address] [place] [address] Dr. Tg Fierro Chloride [Moles/Vol] 104 mmol/L Normal 98-107 [facility] Comment on above: Performed By: #### P T #### [facility] [address] [address] [address] Tg Fierro CO2 [Moles/Vol] 28.5 mmol/L Normal 21.0-32.0 [facility] Comment on above: Performed By: #### P T #### [facility] [address] [address] [address] Tg Fierro Creatinine [Mass/Vol] 0.77 mg/dL Normal 0.55-1.02 [facility] Comment on above: Performed By: #### P T #### [facility] [address] [address] [address] Tg Fierro EGFR-AF BELARUSIAN >60 Normal >=60 [facility] Comment on above: Performed By: #### P T #### [facility] [address] [place] [address] Dr. Tg Fierro EGFR-NON AF BELARUSIAN >60 Normal >=60 [facility] Comment on above: Performed By: #### P T #### [facility] [address] [place] [address] Dr. Tg Fierro Globulin (S) [Mass/Vol] 3.0 g/dL Normal [facility] Comment on above: Performed By: #### P T #### [facility] [address] [place] [address] Dr. Tg Fierro Glucose [Mass/Vol] 124 mg/dL Critically high 74-106 [facility] Comment on above: Performed By: #### P T #### [facility] [address] [place] [address] Dr. Tg Fierro Potassium [Moles/Vol] 4.2 mmol/L Normal 3.5-5.1 [facility] Comment on above: Performed By: #### P T #### [facility] [address] [place] [address] Dr. Tg Fierro Protein [Mass/Vol] 6.8 g/dL Normal 6.4-8.2 [facility] Comment on above: Performed By: #### P T #### [facility] [address] [address] [address] Tg Fierro Sodium [Moles/Vol] 142 mmol/L Normal 136-145 [facility] Comment on above: Performed By: #### P T #### [facility] [address] [address] [address] Tg Fierro Urea nitrogen [Mass/Vol] 12.0 mg/dL Normal 7.0-18.0 [facility] Comment on above: Performed By: #### P T #### [facility] [address] [address] [address] Tg Fierro Urea nitrogen/Creatinine [Mass ratio] 15.6 mg/mg Normal [facility] Comment on above: Performed By: #### P T #### [facility] [address] [address] [address] Tg Fierro SED RATE [facility] 2021 SED RATE 8 mm/hr Normal <=30 [facility] Comment on above: Performed By: #### C MP #### [facility] [address] [address] [address] Tg Fierro COVID Quick Testingon 2020 Result Positive [employer] Other Vital Signs Date Time Vital Sign Value Performing Clinician Facility 04-15-2024 14:16-0400 Body height 160 cm Jayme Perez MD Work Phone: [facility] 04-15-2024 14:16-0400 Body mass index (BMI) [Ratio] 21.79 kg/m2 Jayme Perez MD Work Phone: [facility] 04-15-2024 14:16-0400 Body weight 55.79 kg Jayme Perez MD Work Phone: [facility] 04-15-2024 14:16-0400 Diastolic blood pressure 70 mm[Hg] Jayme Perez MD Work Phone: [facility] 04-15-2024 14:16-0400 Heart rate 87 /min Jayme Perez MD Work Phone: [facility] 04-15-2024 14:16-0400 SaO2% (BldA) [Mass fraction] 98 % Jayme Perez MD Work Phone: [facility] 04-15-2024 14:16-0400 Systolic blood pressure 120 mm[Hg] Jayme Perez MD Work Phone: [facility] 10-14-2023 09:09-0400 Body temperature 98.6 [degF] [employer] [facility] 10-14-2023 09:09-0400 Diastolic blood pressure 61 mm[Hg] [employer] [facility] 10-14-2023 09:09-0400 Heart rate 80 /min [employer] [facility] 10-14-2023 09:09-0400 Respiratory rate 16 /min [employer] [facility] 10-14-2023 09:09-0400 Systolic blood pressure 115 mm[Hg] [employer] [facility] 08-13-2023 10:47-0500 Blood Pressure Location Renato SANTACRUZ [facility] 08-13-2023 10:47-0500 Diastolic blood pressure 62 mm[Hg] Renato SANTACRUZ [facility] 08-13-2023 10:47-0500 Heart rate 82 /min Renato SANTACRUZ [facility] 08-13-2023 10:47-0500 Respiratory rate 16 /min Renato SANTACRUZ [facility] 08-13-2023 10:47-0500 Systolic blood pressure 105 mm[Hg] Renato SANTACRUZ [facility] 08-07-2023 09:48-0500 Body height 160 cm Jayme Perez MD Work Phone: [facility] 08-07-2023 09:48-0500 Body mass index (BMI) [Ratio] 24.45 kg/m2 Jayme Perez MD Work Phone: [facility] 08-07-2023 09:48-0500 Body weight 62.6 kg Jayme Perez MD Work Phone: [facility] 08-07-2023 09:48-0500 Heart rate 57 /min Jayme Perez MD Work Phone: [facility] 08-07-2023 09:48-0500 SaO2% (BldA) [Mass fraction] 98 % Jayme Perez MD Work Phone: [facility] 07-25-2023 09:20-0500 Body height 160.02 cm Lou Glover Other [facility] Other 07-25-2023 09:20-0500 Body mass index (BMI) [Ratio] 23.91 kg/m2 Lou Glover Other [employer] Other 07-25-2023 09:20-0500 Body temperature 97.7 [degF] Lou Glover Other [facility] Other 07-25-2023 09:20-0500 Body weight 61.24 kg Lou Glover Other [employer] Other 07-25-2023 09:20-0500 Diastolic blood pressure 74 mm[Hg] Lou Glover Other [employer] Other 07-25-2023 09:20-0500 Respiratory rate 18 /min Lou Glover Other [employer] Other 07-25-2023 09:20-0500 SaO2% (BldA) [Mass fraction] 96 % Lou Glover Other [employer] Other 07-25-2023 09:20-0500 Systolic blood pressure 120 mm[Hg] Lou Glover Other [employer] Other 03-26-2023 13:15-0400 Body height 160.02 cm MD Jayme Perez Work Phone: [facility] 03-26-2023 13:15-0400 Body temperature 98.2 [degF] MD Jayme Perez Work Phone: [facility] 03-26-2023 13:15-0400 Body weight 66 kg MD Jyame Perez Work Phone: [facility] 03-26-2023 13:15-0400 Diastolic blood pressure 71 mm[Hg] MD Jayme Perez Work Phone: [facility] 03-26-2023 13:15-0400 Heart rate 87 /min MD Jayme Perez Work Phone: [facility] 03-26-2023 13:15-0400 Respiratory rate 16 /min MD Jayme Perez Work Phone: [facility] 03-26-2023 13:15-0400 SaO2% (BldA) [Mass fraction] 97 % MD Jayme Perez Work Phone: [facility] 03-26-2023 13:15-0400 Systolic blood pressure 117 mm[Hg] MD Jayme Perez Work Phone: [facility] 05-21-2021 13:15-0500 Body height 160.02 cm Astrid Baker Other [employer] Other 05-21-2021 13:15-0500 Body mass index (BMI) [Ratio] 23.91 kg/m2 Astrid Baker Other [facility] Other 05-21-2021 13:15-0500 Body temperature 97.3 [degF] Astrid Baker Other [employer] Other 05-21-2021 13:15-0500 Body weight 61.24 kg Astrid Baker Other [employer] Other 05-21-2021 13:15-0500 SaO2% (BldA) [Mass fraction] 94 % Astrid Baker Other [employer] Other Encounters Encounter Date Encounter Type Care Provider Facility Start: 07-01-2024 End: 07-01-2024 Clinisync Result Encounter Jayme Perez MD Work Phone: [facility] Unsolicited Start: 07-01-2024 End: 07-01-2024 Clinisync Result Encounter Jayme Perez MD Work Phone: [facility] Start: 06-17-2024 End: 07-01-2024 Telephone encounter Jayme Perez MD Work Phone: [facility] Start: 06-16-2024 End: 06-16-2024 Clinisync Result Encounter Generic External Data Provider [facility] Unsolicited Start: 06-16-2024 End: 06-16-2024 Clinisync Result Encounter Generic External Data Provider [facility] Unsolicited Start: 05-14-2024 End: 05-14-2024 Clinisync Result Encounter Jayme Perez MD Work Phone: [facility] Unsolicited Start: 05-14-2024 End: 05-14-2024 Clinisync Result Encounter Jayme Perez MD Work [...] Paroxysmal atrial fi brillation (CMS/HCC) (Primary Dx); 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; Type 2 diabetes [...] encounter procedure MD Jayme Perez Work Phone: [facility] [address] Work Phone: Start: 03-31-2024 End: 03-31-2024 ambulatory MD Jayme Perez Work Phone: [facility] Work Phone: Start: 03-29-2024 End: 03-29-2024 Clinisync Result Encounter Generic External Data Provider [facility] Unsolicited Start: 03-29-2024 End: 03-29-2024 Clinisync Result Encounter Generic External Data Provider [facility] Unsolicited Start: 03-25-2024 End: 03-25-2024 Refill Jayme Perez MD Work Phone: [facility] Comment on above: Type 2 diabetes nancie itus with stage 3a chronic kidney disease, without long-term current use of insulin (HCC) ([facility]) Start: 03-17-2024 End: 03-17-2024 Clinisync Result Encounter Jayme Perez MD Work Phone: [facility]solic[facility] Start: 03-17-2024 End: 03-17-2024 Clinisync Result Encounter Jayme Perez MD Work Phone: [facility]solic[facility] Start: 12-31-2023 End: 12-31-2023 ambulatory FELICIA FARMER Not Available Start: 10-14-2023 End: 10-15-2023 ambulatory Williams SHEPHERD Facility:[facility] Start: 10-14-2023 End: 10-14-2023 Patient encounter procedure Williams SHEPHERD [facility] Start: 09-01-2023 End: 09-01-2023 ambulatory FELICIA FARMER Not Available Start: 08-20-2023 Clinisync Result Encounter Generic External Data Provider [facility]solicited Start: 08-20-2023 Clinisync Result Encounter Generic External Data Provider [facility]solicited Start: 08-14-2023 End: 08-15-2023 ambulatory Renato SANTACRUZ Facility:[id number] Start: 08-13-2023 End: 08-14-2023 ambulatory Renato SANTACRUZ Facility:[facility] Start: 08-13-2023 End: 08-13-2023 Patient encounter procedure Renato R ANGELITO [facility] Start: 08-07-2023 End: 08-07-2023 Office outpatient visit 25 minutes Jayme Perez MD Work Phone: [facility] Comment on above: Chronic diastolic he art failure (CMS/HCC) (Primary Dx); 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 (CMS/HCC); Type 2 diabetes mellitus with stage 3a chronic kidney disease, without long-term current use of insulin (HCC) (CMS/HCC); Stage 3a chronic kidney disease (HCC) (CMS/HCC); Microalbuminuria; Former smoker; 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, adult; 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; Psoriatic arthropathy (CMS/HCC); Gastroesophageal reflux disease without esophagitis Start: 08-07-2023 End: 08-07-2023 ambulatory JAYME PEREZ Not Available Start: 07-30-2023 End: 07-30-2023 ambulatory JAYME PEREZ Not Available Start: 07-25-2023 End: 07-25-2023 ambulatory Lou Glover Other [facility] Other Start: 07-25-2023 Office outpatient vi sit 25 minutes Lou Glover [facility] Start: 07-10-2023 End: 07-10-2023 ambulatory FELICIAZULEIMA FARMER Not Available Start: 07-02-2023 End: 07-02-2023 ambulatory FELICIA D ZAHLER Not Available Start: 06-25-2023 End: 06-25-2023 ambulatory FELICIA D ZAHLER Not Available Start: 06-18-2023 End: 06-18-2023 ambulatory FELICIA D ZAHLER Not Available Start: 04-07-2023 End: 04-07-2023 Departed Referred MD [facility] Start: 04-07-2023 End: 04-08-2023 ambulatory MD Jayme Perez Work Phone: [facility] Work Phone: Start: 03-26-2023 End: 03-26-2023 Patient encounter procedure MD Jayme Perez Work Phone: [facility] Work Phone: Start: 03-20-2023 End: 03-21-2023 ambulatory Williams SHEPHERD Facility:[facility] Start: 03-20-2023 End: 03-20-2023 Lab Drop off Williams SHEPHERD [facility] Start: 03-20-2023 End: 03-20-2023 Patient encounter procedure Williams SHEPHERD [facility] Start: 02-03-2023 End: 02-04-2023 ambulatory Williams [...] 05-21-2021 End: 05-21-2021 ambulatory Astrid Baker Other [place] [employer] Other Start: 05-21-2021 Office outpatient vi sit 15 minutes Astrid Baker [facility] Procedures Date Procedure Procedure Detail Performing Clinician Start: 07-01-2024 SRMCOH PROTHROMBIN T GERALD INR W/O COUM Jayme Perez MD Work Phone: Start: 06-16-2024 ALL CBC WITH AUTO DIFF Generic External Data Provider Start: 05-14-2024 [facility] PROTHROMBIN T GERALD INR W/O COUM Jayme Perez MD Work Phone: Start: 04-22-2024 [facility] CREATININE Jayme Perez MD Work Phone: Start: 04-16-2024 ALL CBC WITH AUTO DIFF Generic External Data Provider Start: 04-13-2024 [facility] PROTHROMBIN T GERALD INR W/O COUM Jayme Perez MD Work Phone: Start: 03-29-2024 ALL CBC WITH AUTO DIFF Generic External Data Provider Start: 03-17-2024 [facility] PROTHROMBIN T GERALD INR W/O COUM [...] into ureter Williams SHEPHERD Abdominal hysterectomy Bhavesh resendiz Baofeng Appendectomy Renato Baofeng Extraction of cataract Radhari astrid Baofeng Partial lobectomy of lung Pa gamal Baofeng Tonsillectomy Renato Baofeng Plan of Treatment Date Care Activity Detail Author Start: 12-30-2025 Glaucoma screening Diabetes: R etinopathy Screening [facility] Start: 05-19-2025 Glaucoma screening Diabetes: R etinopathy Screening [facility] Start: 10-14-2024 End: 04-15-2025 T3, reverse T3, reverse Lab Routine Chronic fatigue Expected: 10/14/2024 (Approximate), Expires: 04/15/2025 [facility] Comment on above: Expected: 10/14/2024 (Approximate), Expires: 04/15/2025 Start: 10-14-2024 End: 04-15-2025 Thyrotropin [Units/volume] in Serum or Plasma TSH Lab Routine Chronic fatigue Expected: 10/14/2024 (Approximate), Expires: 04/15/2025 [facility] Comment on above: Expected: 10/14/2024 (Approximate), Expires: 04/15/2025 Start: 10-14-2024 End: 04-15-2025 Thyroxine (T4) free [Mass/volume] in Serum or Plasma T4, free Lab Routine Chronic fatigue Expected: 10/14/2024 (Approximate), Expires: 04/15/2025 [facility] Comment on above: Expected: 10/14/2024 (Approximate), Expires: 04/15/2025 Start: 10-14-2024 End: 04-15-2025 Triiodothyronine (T3) [Mass/volume] in Serum or Plasma T3 Lab Routine Chronic fatigue Expected: 10/14/2024 (Approximate), Expires: 04/15/2025 [facility] Work Phone: Comment on above: Expected: 10/14/2024 (Approximate), Expires: 04/15/2025 Start: 10-14-2024 End: 04-15-2025 Triiodothyronine (T3) Free [Mass/volume] in Serum or Plasma T3, free Lab Routine Chronic fatigue Expected: 10/14/2024 (Approximate), Expires: 04/15/2025 [facility] Comment on above: Expected: 10/14/2024 (Approximate), Expires: 04/15/2025 Start: 08-04-2024 End: 08-04-2024 Patient encounter procedure 08/04/2024 1:00 PM EST Office Visit [facility] [address] [place] [address] Felicia Farmer DO [address] [place] [address] [facility] Start: 07-12-2024 ambulatory Ambulatory Facility:[facility] Start: 05-22-2024 Medicare Annual Well ness (AWV) Medicare Annual Wellness (AWV) [facility] Start: 04-15-2024 End: 04-15-2024 Patient encounter procedure 04/15/2024 2:30 PM EDT Office Visit [facility] [address] [place] [address] Jayme Perez MD [address] [facility] [place] [place] [address] (Fax) [facility] Start: 03-14-2024 Influenza vaccination Influenza Vacc ine (#1) [facility] Start: 10-26-2023 Urine screening for protein Diabetes: Urine Protein Screening [facility] Start: 09-01-2023 End: 09-01-2023 Patient encounter procedure 09/01/2023 10:30 AM EST Office Visit [facility] [address] [place] [id number] Felicia Farmer DO [address] [place] [address] [facility] Start: 05-06-2023 Hemoglobin A1c measurement Sharmin betes: Hemoglobin A1C [facility] Start: 04-07-2023 Abdomen endoscopy OR Cysto/Retro/Stent/Ston e/Holmium Laser (Right) [facility] Start: 03-14-2023 Influenza vaccination Influenza Vacc ine (#1) [facility] Start: 09-12-2020 Urine screening for protein Diabetes: Urine Protein Screening [facility] Start: 1951 Pneumococcal Vaccine : 65+ Years (1 - PCV) Pneumococcal Vaccine: 65+ Years (1 - PCV) [facility] Start: 1951 Pneumococcal Vaccine : 65+ Years (1 of 2 - PCV) Pneumococcal Vaccine: 65+ Years (1 of 2 - PCV) [facility] Immunizations Immunization Date Immunization Notes Care Provider Fa cilidavid NEGATED: Highlighted row has not occurred!08-13-2023 influenza virus vaccine, unspecified formulation eRnato SANTACRUZ [facility] NEGATED: Highlighted row has not occurred!08-13-2023 SARS-CoV-2 mRNA (tozinameran 5y-11y) vaccine Renato SANTACRUZ [facility] NEGATED: Highlighted row has not occurred!09-21-2019 influenza virus vaccine, live, attenuated, for intranasal use [email or web address] [facility] NEGATED: Highlighted row has not occurred!08-20-2019 influenza virus vaccine, live, attenuated, for intranasal use [email or web address] [facility] Payers Date Payer Category Payer Self-pay [id number] 2023 Private Health Insurance [id number] 2022 Unknown [employer] [id number] 2022-Present [address] [address] [place] [address] [id number] 2022 Medicare [id number] [id number] 2002 Medicare [id number] .[id number] 1959 Medicare [id number] 2.16.840.1.023488.19 1959 Unknown [id number] 1946 Unknown [id number] 2.16.840.1.468898.3.579 .2.593 1946 Unknown [id number] 2.16.840.1.885583.3.579 .2.593 1946 Unknown [id number] 2.16.840.1.407902.3.579 .2.593 1946 Unknown [id number] 2.16.840.1.150673.3.579 .2.593 1946 Unknown [id number] 2.16.840.1.751414.3.579 .2.593 1946 Unknown [id number] 2.16.840.1.884740.3.579 .2.593 1946 Unknown [id number] 2.16.840.1.603223.3.579 .2.593 1946 Unknown [id number] 2.16.840.1.580026.3.579 .2.593 1946 Unknown [id number] 2.16.840.1.405672.3.579 .2.593 1946 Unknown [id number] 2.16.840.1.714503.3.579 .2.593 1946 Unknown [id number] 2.16.840.1.036937.3.579 .2.593 1946 Unknown [id number] 2.16.840.1.081740.3.579 .2.593 1946 Unknown [id number] 2.16.840.1.094633.3.579 .2.593 1946 Unknown [id number] 2.16.840.1.978675.3.579 .2.727 1946 Unknown [id number] 2.16.840.1.030762.3.579 .2.727 1946 Unknown [id number] 2.16.840.1.877828.3.579 .2.727 1946 Unknown [id number] 2.16.840.1.111223.3.579 .2.727 1946 Unknown [id number] 2.16.840.1.027258.3.579 .2.727 1946 Unknown [id number] 2.16.840.1.515683.3.579 .2.727 1946 Unknown [id number] 2.16.840.1.912904.3.579 .2.727 1946 Unknown [id number] 2.16.840.1.485755.3.579 .2.1259 1946 Unknown [id number] 2.16.840.1.347187.3.579 .2.1259 1946 Unknown [id number] 2.16.840.1.114086.3.579 .2.125 1946 Unknown [id number] 2.16.840.1.940457.3.579 .2.1259 1946 Unknown [id number] 2.16.840.1.637488.3.579 .2.125 1946 Unknown [id number] 2.16.840.1.212822.3.579 .2.1259 1946 Unknown [id number] 2.16.840.1.966988.3.579 .2.125 1946 Unknown [id number] 2.16.840.1.819978.3.579 .2.1259 1946 Unknown [id number] 2.16.840.1.478460.3.579 .2.1259 Unknown [id number] 2.16.840.1.878425.3.579 .2.531 Social History Date Type Detail Facility Sex Assigned At [employer] Other Start: 02-03-2023 End: 04-15-2024 Tobacco smoking status Ex-smoker (finding) [facility] Tobacco smoking status Never [facility] Start: 12-11-2022 End: 04-08-2024 Sex Assigned At Female [facility] Start: 1945 Sex Assigned At Female [facility] End: 07-14-1986 History of tobacco use [...] 10-14-2023 Functional Status N/A [facility] 08-13-2023 Functional Status N/A [facility] Clinical Notes 02-21-2022 to 07-01-2024 Telephone Encounter - Jayme Perez MD - 07/01/2024 5:50 PM ESTTelephone Encounter - Jayme Perez MD - 07/01/2024 5:50 PM ESTTelephone Encounter - Angeles Bonilla - 06/17/2024 9:11 AM EST Note Date & Type Note [facility] 07-01-2024 Telephone encounter Note I called and spoke with her. No bleeding problems. Her INR is now elevated a 2nd time. She is taking a 4 mg tablet and a half of a 1 mg tablet for a total of 4.5 mg. I am going to have her stop the 1 mg completely so she has a total of 4 mg daily. I asked her to recheck her INR after the new year holiday. [facility] 07-01-2024 Miscellaneous Notes I called and spoke with her. No bleeding problems. Her INR is now elevated a 2nd time. She is taking a 4 mg tablet and a half of a 1 mg tablet for a total of 4.5 mg. I am going to have her stop the 1 mg completely so she has a total of 4 mg daily. I asked her to recheck her INR after the new year holiday. Left voicemail to continue current dose and recheck in about 2 weeks She is right on the border of the elevated. I would just continue the same dose and get rechecked it again in about 2 weeks. documented in this encounter [facility] 06-17-2024 Telephone encounter Note Left voicemail to continue current dose and recheck in about 2 weeks [facility] 06-17-2024 Telephone encounter Note She is right on the border of the elevated. I would just continue the same dose and get rechecked it again in about 2 weeks. [facility] 04-15-2024 History of Present illness Narrative Images [...] problem, stable, comanaged with Cardiology. Asymptomatic. 2. correction current use of anticoagulant Chronic problem, stable, [...] if any problems occur. (Utilizing the original 1994/1996 guidelines or the 2020 office/outpatient code guidelines [...] 4. Stage 3a chronic kidney disease (HCC) ([facility]/HCC) Chronic problem, historically stable. 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 We discussed [...] tablet; Refill: 0 documented in this encounter [facility] 10-14-2023 Hospital Discharge instructions Patient Education [...] include: ?8 oz (237 mL) of milk, qjobpsz-lkawkkhfbvyq-gtorx milk, and calcium-fortifiedfruit juice. Calcium-fortified means that [...] ?Spinach (cooked), rhubarb, beets, sweet potatoes, and Cambodian chard. ?Peanuts. ?Potato chips, polish fries, and baked potatoes with skin on. ?Nuts and nut products. ?Chocolate. If you regularly take a diuretic medicine, make sure to eat at least 1 or 2 servings of fruits or vegetables that are high in potassium each day. These include: ?Avocado. ?Banana. ?[place], prune, carrot, or tomato juice. ?Baked potato. [...] magnesium, fish oil, or vitamin B6. Take brhn-sig-dkgyrtw and prescription medicines only as told by [...] Casseroles. Pizza. Lasagna. Frozen meals. Potato chips. Australian fries. The items listed above may not [...] provider. Document Revised: 10/10/2022 Document Reviewed: 10/10/2022 [employer] Patient Education 2022 [employer]. Follow Up Care 08/13/2023 10:19:44 With:CORA AGUIAR, Williams Venegas, URL Address: [address] [place] [address]- When: Unknown [facility] 08-13-2023 Hospital Discharge instructions Patient [...] including vitamins, herbs, eye drops, creams, and xxsf-beh-kbpxrvl medicines. Any problems you or family members [...] provider tells you to take them. ?Taking erex-yka-gopffsd medicines, vitamins, herbs, and supplements. Eating and [...] provider. Document Revised: 11/06/2022 Document Reviewed: 03/04/2022 [employer] Patient Education 2022 [employer]. Follow Up Care 08/12/2023 14:37:00 With:ANGELITO AGUIAR, Renato Arzola, URL Address: [facility] [address] , [place] [address]- [phone] When: Unknown Comments:sched ureteroscopyf/u w/ [facility] scheduled 10/14/23 [facility] 08-07-2023 History of Present illness Narrative [...] 32.7 (H) 9.0 - 11.6 sec Final TB INR 07/22/2023 3.30 Final Comment: DESIRED INR: [...] 0.55 - 1.02 mg/dL Final TBH EGFR-AF BELARUSIAN 07/22/2023 >60 >=60 Final TBH EGFR-NON AF BELARUSIAN 07/22/2023 55 (L) >=60 Final BUN CREATININE [...] without long-term current use of insulin (HCC) (CMS/[facility]) - metFORMIN (Glucophage) 1000 MG tablet; [...] cardiovascular disease. 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 documented in this encounter [facility] 07-25-2023 Evaluation note Encounter Date Diagnosis [...] care as directed rx of steroid and [place], cool mist humidification. May use Tylenol as directed. Immediate eval for signs of respiratory distress, difficulty breathing poor PO intake, signs of dehydration, fever, or other concerning symptoms. Otherwise, follow up with PCP in 2-3 days. Patient verbalizes understanding and is agreeable to treatment plan. Patient sent home in stable condition. [employer] Other 08-11-2022 NotePROCEDURE: XR FOOT LT MIN 3 VIEWS COMPARISON: None. HISTORY: Pain in left foot FINDINGS: BONES:No acute fracture or dislocation. Mild enthesopathic spurring of the calcaneus. SOFT TISSUES:Negative. No visible soft tissue swelling. EFFUSION:None visible. OTHER: Negative. IMPRESSION: Mild enthesopathic spurring of the calcaneus Electronically authenticated by: BLANCA ZAVALA Date: 2022-02-21 07:28[facility] Future Appointments Appointment Date:07/12/2024 10:45:00 AM Scheduled Provider:Williams SHEPHERD MD Location:[facility] Appointment Type:URO Office Visit [facility] Evaluation + Plan note Future Appointments Appointment Date:07/12/2024 10:45:00 AM Scheduled Provider:Williams SHEPHERD MD Location:[facility] Appointment Type:URO Office Visit Diagnostic Tests Pending * Calculi Analysis [facility] Appointments Appointment Date:10/14/2023 09:15:00 AM Scheduled Provider:Williams SHEPHERD MD Location:[facility] Appointment Type:URO Office Visit Appointment Date:07/12/2024 10:45:00 AM Scheduled Provider:Williams SHEPHERD MD Location:[facility] Appointment Type:URO Office Visit [facility] Evaluation noteNort [employer] Other Evaluation noteNo assessment information available [facility] Work Phone: Evalumrxmv note* Diagnosis Chronic diastolic heart failure (CMS/HCC)- Primary Chronic diastolic heart failure 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 ([facility]/HCC) Atrial fibrillation Type 2 diabetes mellitus with stage 3a chronic kidney disease, without long-term current use of insulin (HCC) ([facility]/HCC) Stage 3a chronic kidney disease (HCC) ([facility]/HCC) Microalbuminuria Proteinuria Former smoker Personal history of tobacco use, presenting hazards to health 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, 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 Psoriatic arthropathy ([facility]/HCC) Psoriatic arthropathy Gastroesophageal reflux disease without esophagitis Esophageal reflux documented in this encounter [facility] HealthcareEvaluation note* Diagnosis 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 ([facility]/HCC)- Primary 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 Type 2 diabetes mellitus with stage 3a chronic kidney disease, without long-term current use of insulin (HCC) (CMS/HCC) Stage 3a chronic kidney disease (HCC) ([facility]/HCC) Microalbuminuria Proteinuria Unexplained weight loss Loss of weight Chronic fatigue Other malaise and fatigue Sleep arousal disorder documented in this encounter [facility]* Diagnosis Type 2 diabetes mellitus with stage 3a chronic kidney disease, without long-term current use of insulin (HCC) ([facility]/HCC) documented in this encounter [facility] HealthcareHistory general Narrative - ReportedNocoxhealth [employer] Other History general Narrative - Reported* Type Description Date Medical History Arthritis Medical History diabetes mallitus Surgical History cataract surgery [facility] [employer] Other Hospital course Narrative No data available for this section [facility] Discharge instructions No data available for this section [facility] Progress note No data available for this section [facility] Summary Purpose Family History Relationship Condition Age [...] and content) DATE CREATED AUTHOR 12/20/2022 [facility] DATE CREATED AUTHOR AUTHOR'S ORGANIZ ATION 10/15/2023 [facility] DATE CREATED AUTHOR AUTHOR'S ORGANIZ ATION 04/10/2024 [facility] DATE CREATED AUTHOR AUTHOR'S ORGANIZ ATION 04/17/2024 [facility] [employer] Patient Care team informatio n (unrecognized section and content) Team Status: Active Member Role Status Dates Jayme Perez MD Primary Care Provider Active Team Status: Inactive Member Role Status Dates Jayme Perez MD Primary Care Provider Active Williams Shepherd MD Attending Provider Active Knitter Hand Relationship Specialty Start Date End Date Jayme Perez MD [address] [place] [address] PCP - General Family Medicine 11/25/22 Jayme Perez MD [address] [place] [address] PCP - ACO Reach 12/05/22 Knitter Hand Relationship Specialty Start Date End Date Jayme Perez MD [address] [place] [address] (Fax) PCP - General Family Medicine 11/25/22 Jayme Perez MD [address] [place] [address] (Fax) PCP - ACO Reach 12/05/22 Team Status: Inactive Member Role Status Dates Jayme Perez MD Primary Care Provider Active Start: March 31, 2024 End: March 31, 2024 Radames Monteiro MD Attending Provider Active St art: March 31, 2024 End: March 31, 2024 Knitter Hand Relationship Specialty Start Date End Date Jayme Perez MD [address] [place] [address] (Fax) PCP - General Family Medicine 11/25/22 Jayme Perez MD [address] [place] [address] (Fax) PCP - ACO Reach 12/05/22 Felicia Farmer DO [address] [place] [address] Referring Physician Ophthalmology 08/21/23 Renato Santacruz MD [address] [place] [address] Referring Physician Urology 08/21/23 Radames Monteiro MD [address] [place] [address] Referring Physician Rheumatology 08/21/23 Knitter Hand Relationship Specialty Start Date End Date Jayme Perez MD [address] [place] [address] (Fax) PCP - General Family Medicine 11/25/22 Jayme Perez MD [address] [place] [address] (Fax) PCP - ACO Reach 12/05/22 Felicia Farmer, [address] [place] [address] Referring Physician Ophthalmology 08/21/23 Renato Santacruz MD [address] [place] [phone] Referring Physician Urology 08/21/23 Radames Monteiro MD [address] [facility] Professional building [address] [place] [phone] Referring Physician Rheumatology 08/21/23 Knitter Hand Relationship Specialty Start Date End Date Jayme Perez MD [address] [place] [address] (Fax) PCP - General Family Medicine 11/25/22 Jayme Perez MD [address] [place] [address] (Fax) PCP - ACO Reach 12/05/22 Felicia Farmer DO [address] [place] [address] Referring Physician Ophthalmology 08/21/23 Renato Santacruz MD [address] [place] [phone] Referring Physician Urology 08/21/23 Radames Monteiro MD [address] [place] [address] Referring Physician Rheumatology 08/21/23 Knitter Hand Relationship Specialty Start Date End Date Jayme Perez MD [address] [place] [address] (Fax) PCP - General Family Medicine 11/25/22 Jayme Perez MD [address] [place] [address] (Fax) PCP - ACO Reach 12/05/22 Felicia Farmer DO [address] [place] [phone] Referring Physician Ophthalmology 08/21/23 Renato Santacruz MD [address] [phone] Referring Physician Urology 08/21/23 Radames Monteiro MD [address] [place] [phone] Referring Physician Rheumatology 08/21/23 Knitter Hand Relationship Specialty Start Date End Date Jayme Perez MD [address] [place] [address] (Fax) PCP - General Family Medicine 11/25/22 Jayme Perez MD [address] [place] [address] (Fax) PCP - ACO Reach 12/05/22 Felicia Farmer DO [address] [place] [address] Referring Physician Ophthalmology 08/21/23 Renato Santacruz MD [address] [place] [phone] Referring Physician Urology 08/21/23 Radames Monteiro MD [address] [place] [phone] Referring Physician Rheumatology 08/21/23 Knitter Hand Relationship Specialty Start Date End Date Jayme Perez MD [address] [place] [address] (Fax) PCP - General Family Medicine 11/25/22 Jayme Perez MD [address] [place] [address] (Fax) PCP - ACO Reach 12/05/22 Felicia Farmer DO [address] [place] [address] Referring Physician Ophthalmology 08/21/23 Renato Santacruz MD [address] [place] [phone] Referring Physician Urology 08/21/23 Radames Monteiro MD [address] [place] [phone] Referring Physician Rheumatology 08/21/23 Knitter Hand Relationship Specialty Start Date End Date Jayme Perez MD [address] [place] [phone] (Fax) PCP - General Family Medicine 11/25/22 Jayme Perez MD [address] [address] (Fax) PCP - ACO Reach 12/05/22 Felicia Farmer DO [address] [place] [address] Referring Physician Ophthalmology 08/21/23 Renato Santacruz MD [address] [place], [place] [phone] Referring Physician Urology 08/21/23 Radames Monteiro MD [address] [place] [phone] Referring Physician Rheumatology 08/21/23 Knitter Hand Relationship Specialty Start Date End Date Jayme Perez MD [address] [address] (Fax) PCP - General Family Medicine 11/25/22 Jayme Perez MD [address] [address] (Fax) PCP - ACO Reach 12/05/22 Felicia Farmer DO [address] [place] [address] Referring Physician Ophthalmology 08/21/23 Renato Santacruz MD [address] [place] [phone] Referring Physician Urology 08/21/23 Radames Monteiro MD [address] [place] [phone] Referring Physician Rheumatology 08/21/23 Goals (unrecognized section and content) Goals may be documented in a n alternate section REASON FOR VISIT (unrecogniz ed section and content) Reason Comments Hyperlipidemia Diabetes Reason Comments Atrial Fibrillation Diabetes Reason Comments Med Refill FOR RECORDS PERTAINING TO PATIENTS WHO ARE [...] BE BASED ON THE PRIMARY CLINICAL RECORDS. [employer] provides no warranty or guarantee of the accuracy or completeness of information in this document.
== END 2024-07-05 09:04 | disposition home or self-care (01) ==
LOC: RAD 09:03
PROVIDERS: PCP Family Medicine; Visit Provider Urology
DX: N20.0 Calculus of kidney (principal)
CPT/HCPCS: 74018

== ENCOUNTER 2024-07-19 11:18 | Outpatient (OUT) | payer MEDICARE, SELFPAY ==
[2024-07-19 12:23] LABS: INR 2.82
== END 2024-07-19 11:19 | disposition home or self-care (01) ==
LOC: LAB 11:20
PROVIDERS: PCP Family Medicine; Visit Provider Family Medicine
DX: Z79.01 Long term (current) use of anticoagulants (principal); I48.0 Paroxysmal atrial fibrillation; Z51.81 Encounter for therapeutic drug level monitoring
CPT/HCPCS: 36415; 85610

== ENCOUNTER 2024-08-17 10:12 | Outpatient (OUT) | payer MEDICARE, SELFPAY ==
--- OUTSIDE RECORDS SUMMARY | 2024-08-17 10:17 | XMS_ITS | CCD ---
Author Organization [facility] Care Team Providers Care Ultrasound Coordinator Name Role Phone Astrid Baker Unavailable [...] DR MCKINNEY Primary Care Unavailable MONTEIRO, DR RCUM Consulting Unavailable CAYETANO, DR CRUM Attending Unavailable [...] able MD Jayme Perez Primary Care Provider [phone] MD Williams Shepherd Attending Provider Lou Glover Unavailable Jayme Perez MD Primary Care Provider [phone] Jayme Perez MD Unavailable [phone] MD Jayme Perez Primary Care Provider [phone] MD Radames Monteiro Attending Provider Radames Monteiro Admitting Unavailable Radames Monteiro Attending Unavailable Jayme Perez Primary Care Unavailable Felicia Farmer DO Unavailable Renato Santacruz MD Unavailable [phone] Radames Monteiro MD Unavailable Jayme Perez MD Primary Care Provider Jayme Perez MD Unavailable Jayme Perez MD Primary Care Provider [phone] Jayme Perez MD Unavailable [phone] Williams SHEPHERD Attending Unavailable Renato SANTACRUZ Attending Unavailable Williams SHEPHERD Attending Unavailable Renato SANTACRUZ Attending Unavailable FELICIA FARMER Attending Unavailable JAYME PEREZ Attending Unavailable FELICIA FARMER Attending Unavailable FELICIA FARMER Attending Unavailable JAYME PEREZ Attending Unavailable Allergies Allergy Classification Reported Allergen(s) Allergy Type Date of Onset Reaction(s) Facility (20 sources) Ciprofloxacin; Translations: [ciprofloxacin] Drug Allergy 02-19-20 anaphylaxis, Unknown (qualifier value) [facility] (1 source) sulfaSALAzine Drug Allergy rash [facility] Other (1 source) Ciprofloxacin Drug Allergy 03-30-20 13 [facility] Rep[facility] (2 sources) Ketorolac; Translations: [Toradol] Drug Allergy 03-30-20 13 [facility] Rep[facility] (2 sources) metroNIDAZOLE; Translations: [MetroGel] Drug Allergy 03-30-20 13 [facility] (1 source) NSAIDs Drug allergy (disorder) 03-30-20 13 [facility] (2 sources) pioglitazone; Translations: [Actos] Drug Allergy 03-30-20 13 [facility] (1 source) Sulfonamides (Antibiotic) Drug allergy (disorder) 03-30-20 13 [facility] (13 sources) Ketorolac; Translations: [ketorolac] Drug Allergy 03-26-20 Unknown (qualifier value), Nausea (finding) [facility] Comment on above: Severe (20 sources) Latex; Translations: [latex] Drug allergy 01-07-20 Blister of skin AND/OR mucosa (finding) [facility] (20 sources) Non-steroidal anti-inflammatory agent; Translations: [NSAIDs] Drug allergy 02-19-20 Unknown (qualifier value) [facility] (20 sources) pioglitazone; Translations: [pioglitazone] Drug Allergy 01-07-20 23 Unknown (qualifier value) [facility] (6 sources) Sulfonamides (Antibiotic); Translations: [sulfa drugs] Drug allergy Unknown (qualifier value) [facility] (20 sources) metroNIDAZOLE; Translations: [Metronidazole] Drug Allergy 02-19-20 Redness of Skin [facility] (3 sources) Sulfonamides (Antibiotic); Translations: [Sulfa (Sulfonamide Antibiotics)] Allergy to substance 03-26-20 [facility] (3 sources) NSAIDS (Non-Steroidal Anti-Inflamma; Translations: [NSAIDS (Non-Steroidal Anti-Inflamma] Allergy to substance 03-26-20 Anaphylaxis, Anaphylaxis, rash [facility] (1 source) Non-steroidal anti-inflammatory agent Drug allergy [facility] Other (19 sources) Substance with sulfonamide structure and antibacterial mechanism of action (substance) Drug allergy 02-19-20 rash [facility] Other (18 sources) Ketorolac Allergy to substance 01-07-20 Nausea Only [facility] (18 sources) Hydrocodone Bit-Homatrop Mbr Propensity to adverse reactions 08-07-19 Dizziness [facility] (18 sources) Medical Adhesive Remover Drug Allergy 02-19-20 [facility] (1 source) Ciprofloxacin Drug Allergy 07-25-19 [facility] Repository (1 source) Ketorolac Drug Allergy 03-26-20 [facility] Repository (1 source) pioglitazone Drug Allergy 03-26-20 [facility] Repository Medications Current Medications Medication Drug Class(es) Dates Sig (Normalized) Sig (Original) acarbose 100 mg oral tablet (20 sources) alpha-Glucosidase Inhibitor Start: 08-17-2019 End: 10-12-2024 acarbose (Precose) 100 MG tablet Indications: Type 2 diabetes mellitus with stage 3a chronic kidney disease, without long-term current use of insulin (HCC) ([facility]/HCC) Take 1 tablet (100 mg) by mouth in the morning and 1 tablet (100 mg) at noon and 1 tablet (100 mg) in the evening. Take with meals. 270 tablet 1 04/15/2024 10/12/2024 Active Start: 08-17-2019 acarbose Oral, TID, Refills(s) 0 Start Date: 08/17/19 Status: Ordered Acarbose Active acetaminophen 325 mg oral ta blet (20 sources) Start: 03-26-2023 Acetaminophen (Tylenol) 325 mg [...] / oxyCODONE hydrochloride 5 mg oral tablet (10 sources) Opioid Agonist Start: 08-12-2023 End: 04-15-2024 take 1 tablet by mouth every six hours Percocet 5 mg-325 mg oral tablet 1 tab(s), Oral, q6hr, Refill(s) 0 Start Date: 08/13/23 Status: Ordered [id number] 200 actuat albuterol 0.09 mg/actuat metered dose inhaler (20 sources) beta2-Adrenergi c Agonist Start: 07-16-2023 End: 07-15-2024 albuterol HFA 90 mcg/act inhaler Indications: Chronic obstructive pulmonary disease with acute exacerbation (CMS/HCC) Inhale 2 puffs in the morning and 2 puffs at noon and 2 puffs in the evening and 2 puffs before bedtime. 18 g 07/16/2023 Active Start: 05-21-2021 Start: 05-21-2021 take 2 [...] 2023 12:00am aspirin 81 mg oral tablet (5 sources) Platelet Aggregation Inhibitor, Nonsteroidal Anti-inflammatory Drug [...] 12:00am cinnamon bark 500 mg oral capsule (20 sources) Start: 03-26-2023 take 1 capsule by mouth twice daily Cinnamon Bark (Cinnamon) 500 mg Capsule Active 1000 MG PO Twice daily March 26, 2023 12:00am Cinnamon Preparation (5 sources) Non-Standardized Food Allergenic Extract Start: 09-19-2020 take 1000 mg by mouth once daily cinnamon 1,000 mg, Oral, Daily Start Date: 09/19/20 Status: Ordered Start: 09-19-2020 take 1 mg by mouth twice daily cinnamon mg, Oral, BID Start Date: 09/19/20 Status: Ordered Cyanocobalamin-Liver Extract (Vitamin I86-Yxmro) Tablet (2 sources) Start: 03-26-2023 take 1 tablet by mouth once daily Cyanocobalamin-Liver Extract (Vitamin W49-Tapvn) Tablet Active 1 TAB PO every day at March 26, 2023 12:00am Start: 03-26-2023 take 1 tablet by valdo th once daily Cyanocobalamin-Liver Extract (Vitamin H95-Ecidp) Tablet Active 1 TAB PO every day at March 25, 2023 11:00pm dextromethorphan hydrobromide 1.5 mg/ml / pyrilamine maleate 1.5 mg/ml oral solution (1 source) Uncompetitive U-hmpxwd-N-aspartate Receptor Antagonist, Sigma-1 Agonist Start: 07-25-2023 take 10 mL by mouth every eight hours Daisetta DM 7.5-7.5 MG/5ML 10 mL Orally every 8 hours for 5 days Jul, Active esomeprazole 20 mg oral tablet (20 sources) Proton Pump Inhibitor Start: 08-17-2019 Nexium 20 mg, Oral, As Directed, Refills(s) 0 Start Date: 08/17/19 Status: Ordered Start: 08-17-2019 Nexium Oral, D aily, Refills(s) 0 Start Date: 08/17/19 Status: Ordered take 1 capsule by [facility] once daily esomeprazole (NexIUM) [address] capsule Take 20 mg by mouth 1 (one) time each day. 1 capsule orally once a day Active ferrous sulfate 134 mg oral tablet (2 sources) Start: 03-26-2023 take 30 mg by mouth once Ferrous Sulfate Active 30 MG PO every Friday, , Friday, and Sunday March 26, 2023 12:00am 4 ml golimumab 12.5 mg/ml injection (7 sources) Tumor Necrosis Factor Sergey Start: 03-26-2023 [...] Ac tive methotrexate 2.5 mg/ml oral solution (9 sources) Folate Analog Metabolic Inhibitor Start: 03-26-2023 take 1.5 mg by mouth every week Methotrexate Active 1.5 MG PO every week March 26, 2023 12:00am Start: 08-17-2019 take 5 mg by mouth every week methotrexate 5 mg, Oral, qWeek, Refills(s) 0 Start Date: 08/17/19 Status: Ordered Start: 08-17-2019 methotrexate R efills(s) 0 Start Date: 08/17/19 Status: Ordered Methotrexate Sod ium Active Misc Medication (5 sources) Start: 09-19-2020 [facility] Medicatio n See Instructions, Oral Start Date: 09/19/20 Status: Ordered Start: 09-19-2020 [facility] Medicatio n ironchlate Start Date: 09/19/20 Status: Ordered Multi Vitamins oral tablet (5 sources) Start: 09-19-2020 take 1 tablet by mouth once daily Multi Vitamins oral tablet 1 tab(s), Oral, Daily, Refill(s) 0 Start Date: 09/19/20 Status: Ordered Start: 09-19-2020 Multi Vitamins oral tablet Oral, Daily, Refill(s) 0 Start Date: 09/19/20 Status: Ordered ondansetron 4 mg oral tablet (10 sources) Serotonin-3 Receptor Antagonist Start: 08-13-2023 ondansetron [...] (Therapy completed) predniSONE 2.5 mg oral tablet (9 sources) Start: 03-26-2023 take 2.5 mg by [...] aking/PRN Spacer/Aero-Holding Chambers (B[facility] Leonor Spacer Adult) mis (18 sources) Start: 07-16-2023 Spacer/Aero-Ho lding Chambers (BreatheRite [...] Active tamsulosin hydrochloride 0.4 mg oral capsule (17 sources) alpha-Adrenergic Sergey Start: 08-13-2023 End: 08-20-2023 take 1 mg by mouth once daily tamsulosin 0.4 mg Cap mg cap(s), Oral, Daily, X 7 day(s), Refills(s) 0 Start Date: 08/13/23 Stop Date: 08/20/23 Status: Ordered Start: 08-12-2023 take 1 capsule by [facility] every twenty-four hours in the morning tamsulosin (Flomax) 0.4 MG 24 hr capsule Take 0.4 mg by mouth in the morning. 08/12/2023 Active traZODone hydrochloride 50 mg oral tablet (11 sources) Serotonin Reuptake Inhibitor Start: 04-15-2024 traZODone (Desyrel) 50 MG tablet Indications: Insomnia Titrate nightly from 1/2 tablet up to 2 tablets by 1/2 tablet increments as tolerated 60 tablet 04/15/2024 Active vitamin B12 (20 sources) Vitamin B12 Start: 08-17-2019 take 3000 [...] (one) time each day. Active Vitamin D3 (5 sources) Start: 08-17-2019 Vitamin D3 1,0 00 unit(s), Daily, Refills(s) 0 Start Date: 08/17/19 Status: Ordered Start: 08-17-2019 Vitamin D3 Alexandra ly, Refills(s) 0 Start Date: 08/17/19 Status: Ordered warfarin sodium 4 mg oral tablet (20 sources) Vitamin K Antagonist Start: 08-18-2023 End: 08-17-2024 warfarin (Coumadin) 2.5 MG tablet Indications: 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 (CMS/HCC) [...] Date: 02/03/23 Status: Ordered Start: 10-02-2022 End: 10-22-2024 take 1 tablet by mouth once daily in the evening warfarin (Coumadin) 4 MG tablet Indications: 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 (CMS/HCC) TAKE ONE TABLET BY MOUTH EVERY EVENING FOR A TOTAL OF 5MG 90 tablet 1 04/21/2024 Active Zinc Sulfate-Vitamin C (Vitamin C Plus Zinc) [...] Date Documented Da te Episodic/Chronic Abdominal pain (9 sources) Abdominal pain; Translations: [Unspecified abdominal pain] Onset: 4 09-21-2019 Episodic Anxiety disorders (5 sources) Anxiety 08-17-2019 Chronic Calculus of urinary tract (15 sources) Kidney stone; Translations: [Calculus of kidney] Onset: 3 Episodic Cancer of uterus (5 sources) History of malignant neoplasm of uterine body 08-17-2019 Episodic Cardiac dysrhythmias (20 sources) 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; Translations: [Atrial fibrillation] Onset: 3 Chronic Cataract (20 sources) Bilateral age-related nuclear cataracts; Translations: [Age-related nuclear cataract, bilateral] Onset: 3 Resolved: 4 05-19-2023 Chronic Chronic kidney disease (20 sources) Chronic kidney disease stage 3A ; Translations: [Stage 3a chronic kidney disease (HCC) (CMS/HCC)] Onset: 3 07-30-2023 Chronic Congestive heart failure; nonhypertensive (20 sources) Chronic diastolic (congestive) heart failure; Translations: [Chronic diastolic heart failure] Onset: 3 08-18-2023 Chronic Diabetes mellitus with complications (20 sources) Type 2 diabetes mellitus with diabetic chronic kidney disease; Translations: [Type 2 diabetes mellitus] Onset: 3 Chronic Diverticulosis and diverticulitis (18 sources) 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; Translations: [Diverticulosis of large intestine without perforation or abscess without bleeding] Onset: 3 12-12-2022 Chronic Esophageal disorders (20 sources) Gastroesophageal reflux disease without esophagitis; Translations: [Gastro-esophageal reflux disease without esophagitis] Onset: 3 08-18-2023 Chronic Glaucoma (19 sources) Preglaucoma, unspecified, bilateral; Translations: [Preglaucoma, unspecified] Onset: 3 05-19-2023 Chronic Heart valve disorders (19 sources) Nonrheumatic aortic (valve) stenosis; Translations: [Aortic valve disorders] Onset: 3 12-12-2022 Chronic Immunity disorders (18 sources) Immunosuppression; Translations: [Immunodeficiency, unspecified] Onset: 3 12-12-2022 Chronic Inflammation; infection of eye (except that caused by tuberculosis or sexually transmitteddisease) (19 sources) Blepharitis of upper and lower eyelids of bilateral eyes; Translations: [Unspecified blepharitis right eye, upper and lower eyelids] Onset: 3 05-19-2023 Episodic Malaise and fatigue (2 sources) Fatigue; Translations: [Chronic fatigue, unspecified] 04-15-2024 Chronic Menopausal disorders (18 sources) Disorder associated with menstruation AND/OR menopause; Translations: [Menopausal and female climacteric states] Onset: 3 12-12-2022 Chronic Mood disorders (5 sources) Depressive disorder 08-17-2019 Chronic Nutritional deficiencies (18 sources) Vitamin D deficiency; Translations: [Vitamin D deficiency, unspecified] Onset: 3 12-12-2022 Chronic Osteoporosis (19 sources) Osteoporosis; Translations: [Age-related osteoporosis without current pathological fracture] Onset: 3 12-12-2022 Chronic Other aftercare (1 source) prison (current) use of anticoagulants; Translations: [HOSPITAL TELEVISION RENTAL CLERK CURRNT USE ANTICOAGULANTS] Onset: 3 Episodic Other aftercare (5 sources) Encounter for therapeutic drug level monitoring; Translations: [ENC THERAPEUTC DRUG LEVL MONITORING] Onset: 3 Episodic Other aftercare (1 source) Other inpatient services rn (current) drug therapy; Translations: [OTH HOSPITAL TELEVISION RENTAL CLERK CURRENT DRUG THERAPY] Onset: 3 Episodic Other and ill-defined heart disease (4 sources) Cardiomegaly; Translations: [CARDIOMEGALY] Onset: 3 Chronic Other and ill-defined heart disease (18 sources) Ventricular hypertrophy ; Translations: [Cardiomegaly] Onset: 3 12-12-2022 Chronic Other diseases of kidney and ureters (2 sources) Urinary tract obstruction; Translations: [Hydronephrosis with renal and ureteral calculous obstruction] Onset: 4 Episodic Other endocrine disorders (1 source) Disorder of adrenal gland; Translations: [Disorder of adrenal gland, unspecified] Onset: 4 Chronic Other eye disorders (19 sources) Dry eyes; Translations: [Dry eye syndrome of bilateral lacrimal glands] Onset: 3 05-19-2023 Episodic Other gastrointestinal disorders (1 source) Adrenal mass 07-12-2024 Episodic Other inflammatory condition of skin (5 sources) Other psoriatic arthropathy; Translations: [OTHER PSORIATIC ARTHROPATHY] Onset: 3 Chronic Other inflammatory condition of skin (20 sources) Psoriatic arthritis; Translations: [Arthropathic psoriasis, unspecified] Onset: 3 08-18-2023 Chronic Other nutritional; endocrine; and metabolic disorders (5 sources) Body mass index 25-29 - overweight 09-18-2021 Episodic Other nutritional; endocrine; and metabolic disorders (2 sources) Unexplained weight loss ; Translations: [Abnormal weight loss] 04-19-2024 Episodic Residual codes; unclassified (2 sources) Sleep dysfunction with arousal disturbance; Translations: [Other sleep disorders] 04-15-2024 Chronic Residual codes; unclassified (5 sources) H/O: anticoagulant therapy 09-21-2019 Episodic Spondylosis; intervertebral disc disorders; other back problems (20 sources) Degeneration of lumbar intervertebral disc; Translations: [Other intervertebral disc degeneration, lumbar region] Onset: 3 12-12-2022 Chronic Unclassified (5 sources) Drug therapy finding 08-20-2019 Unclassified (3 sources) Obstructive hydronephrosis 01-31-2024 Viral infection (1 source) Other specified viral [...] communicable diseases Onset: 05-21-2021 Resolved: 05-21-2021 Episodic Mood disorders (18 sources) Mood disorders Onset: 05-22-2023 05-22-2023 Nutritional deficiencies (18 sources) Iron deficiency; Translations: [Iron deficiency] Onset: 12-12-2022 12-12-2022 Episodic Other aftercare (1 source) 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 drugs; Translations: [RESIDENTIAL USE ORAL HYPOGLYCEMIC DX] Onset: 08-12-2022 Episodic Other aftercare (1 source) odd job worker (current) use of insulin; Translations: [HOSPITAL TELEVISION RENTAL CLERK CURRENT USE OF INSULIN] Onset: 02-13-2022 Episodic Other aftercare (20 sources) Long-term current use of anticoagulant; Translations: [odd job worker (current) use of anticoagulants] Onset: 07-21-2023 Episodic Other bone disease and musculoskeletal deformities (18 sources) Osteopenia; Translations: [Other specified disorders of bone density and structure, unspecified site] Onset: 12-12-2022 12-12-2022 Episodic Other connective tissue disease (4 sources) Pain in left foot; Translations: [PAIN IN LEFT FOOT] Onset: 02-20-2022 Episodic Other nutritional; endocrine; and metabolic disorders (18 sources) Overweight; Translations: [Overweight] Onset: 12-12-2022 Resolved: 07-30-2023 07-30-2023 Episodic Pneumonia (except that caused by tuberculosis or sexually transmitted disease) (1 source) Pneumonia, unspecified organism Onset: 05-21-2021 Resolved: 05-21-2021 Episodic Residual codes; unclassified (20 sources) Body mass index 20-24 - normal; Translations: [Body mass index (BMI) 24.0-24.9, adult] Onset: 07-30-2023 07-30-2023 Episodic Residual codes; unclassified (18 sources) Sleep disorder; Translations: [Sleep disorder, unspecified] [...] Name Value Interpretation Reference Range Facil ity Ophthalmic OCT panelon 08-04 [facility] Right Eye Images reviewed and comparison made to baseline, Images reviewed. To assess optic nerve function and for use in future follow-up. Reliability: good and adequate. Left Eye Images reviewed and comparison made to baseline, Images reviewed. To assess optic nerve function and for use in future follow-up. Reliability: good and adequate. Notes Good nerve fiber layer (NFL) thickness both eyes (OU). Stable. [facility] Rad[facility]ative[facility]Mon [facility]24 Interpretation and review of laboratory results Abnormal [facility] PT Coag (PPP) [Time] 27 s High [facility] TB INR 2.82 [facility] Comment on above: DESIRED INR: 2.0-3.0 CONDITIONS NOT LISTED BELOW 2.5-3.5 FOR PROSTHETIC HEART VALVE REPLACEMENT 2.5-3.5 RECURRENT THROMBOSIS [facility] Ambulatory Visit Summaryon 1 Ambulatory Visit Summary Ambulatory Visit Summary WILDA SEN :1945 Visit Date:07/12/2024 Ambulatory Visit Instructions Your Diagnosis Kidney stone Adrenal nodule Anticoagulated Your Care Team Attending Physician - CORA [...] lung, Tonsillectomy. Discharge Vitals Heart Rate (Peripheral) 77 Blood Pressure 131/66 Height 160 cm Height 63 in Weight 57.5 kg Weight 126.766 lb BMI 22.46 What to do next You Need to Schedule the Following Appointments Follow Up with CORA AGUIAR, MILDRED Castillo When: Where: [address] [place] [id number] Medications What How Much When Instructions Unchanged acarbose 100 Milligram By Mouth 3 times a day Contact prescribing physician if questions or concerns Unchanged acetaminophen-oxycodo ne (Percocet 5 mg-325 mg oral tablet) 1 Tablets By Mouth Every 6 hours Contact prescribing physician if questions or concerns Unchanged aspirin (aspirin 81 mg oral tablet) By Mouth Every day Contact prescribing physician if questions or concerns Unchanged calcium citrate 250 Milligram By Mouth 3 times a day Contact prescribing physician if questions or concerns Unchanged cholecalciferol (Vitamin D3) 1,000 Units Every day Contact prescribing physician if questions or concerns Unchanged cinnamon 1,000 Milligram By Mouth Every day Contact prescribing physician if questions or concerns Unchanged cyanocobalamin (Vitamin B12) 3,000 Milligram By Mouth Every day Contact prescribing physician if questions or concerns Unchanged esomeprazole (Nexium) 20 Milligram By Mouth As Directed Contact prescribing physician if questions or concerns Unchanged golimumab (Simponi Aria) Intravenous Every 4 weeks Contact prescribing physician if questions or concerns Unchanged metformin 1,000 Milligram By Mouth 2 times a day Contact prescribing physician if questions or concerns Unchanged methotrexate 5 Milligram By Mouth Every week Contact prescribing physician if questions or concerns Unchanged multivitamin (Multi Vitamins oral tablet) 1 Tablets By Mouth Every day Contact prescribing physician if questions or concerns Unchanged Non-Formulary Medication (Misc Medication) See instructions Oral Contact prescribing physician if questions or concerns Unchanged ondansetron (ondansetron 4 mg Tab) By Mouth As Directed Contact prescribing physician if questions or concerns Unchanged predniSONE 5 Milligram By Mouth Every day Contact prescribing physician if questions or concerns Unchanged warfarin 4 Milligram By Mouth Every day Contact prescribing physician if questions or concerns Allergies MetroGel NSAIDs (Unknown) ciprofloxacin (Unknown) sulfa drugs (Unknown) Actos (Unknown) Latex (Blister) Toradol (Nausea) ketorolac (Unknown) pioglitazone (Unknown) Problems Ongoing - Any problem that you are currently receiving treatment for. Abdominal pain Adrenal nodule Afib Anticoagulated Anxiety BMI 27.0-27.9,adult Depression Diabetes Flank pain Former smoker Frequent urination Heart murmur History of uterine cancer Hx of inpatient services rn use of blood thinners Kidney stone Kidney stones Nocturia Ureteral stone Ureteral stone with hydronephrosis Patient Survey You may receive a survey via text or e-mail asking about your office visit. Please share your experience with us by completing your survey. We appreciate your feedback and thank you for choosing us for your care. Education Materials Dietary Guidelines to Help Prevent Kidney Stones Kidney stones are deposits of minerals and salts that form inside your kidneys. Your risk of developing kidney stones may be greater depending (more content not included)... Normal [facility] Reminderson 07-12-2024 Reminders Reminders From: Julita Vu To: EU - Bang Shepherd; Sent: 07/12/2024 12:09:59 EST Show up: 12/10/2025 13:09:00 EDT Subject: KUB Due Date/Time: 01/10/2026 13:09:00 EDT Reminder Message Please Remember to:_Please order KUB and call pt to remind her to complete KUB for 18 mo appt. Thanks! PATIENT RELATED REMINDER:_ ( ) Call Patient ( ) Ask Patient to ( ) Call Relative ( ) Schedule Patient ( ) Follow up on Results ( ) Other: PROVIDER RELATED REMINDER:_ ( ) Brim Setter ( ) Call Pharmacy ( ) Call Lab ( ) Other: Special Instructions:_ Comments:_ [facility] Reminders Reminders From: Jo-Ann Schaeffer To: EU - Administrative; Sent: 07/12/2024 11:46:18 EST Show up: 04/17/2026 11:46:00 EDT Subject: 2 YR AND KUB Due Date/Time: 07/03/2026 11:46:00 EST Reminder/Recall SCHEDULE IN 2 YRS AND KUB W/ DR SHEPHERD [facility] Urology Office/Clinic Noteon 07-12-2024 Urology Office/Clinic Note Urology Office/Clinic Note Chief Complaint 3 month F/U w KUB HPI Staff 18 mo with KUB due to kidney stones. KUB 07/05/24-[facility] *no uro meds Dysuria: denies Incomplete bladder emptying: denies Hematuria: denies visual blood Frequency: 2-3 hours Urgency: denies Nocturia: 1 x a night Stream: weak stream Leaking: only when coughing or sneezing sometimes Post void dripping: denies Wearing pads/ Depends: denies Urge incontinence: denies Stress incontinence: denies Incontinence without Sensory Awareness: denies Abdominal pain: denies Flank pain: denies Sexual complaints: denies History of Present Illness Tests reviewed: KUB I have reviewed the previous health record [...] HPI. Physical Exam Vitals & Measurements HR: 77(Peripheral) BP: 131/66 HT: 63 in HT: 160 cm WT: 57.5 kg WT: 126.766 lb BMI: 22.46 General Appearance: alert, no distress, well nourished, well developed female. Assessment/Plan 1. Kidney stone (N20.0: Calculus of kidney) Stone analysis 03/20/23 - 100% Di CaOx. CT AP wo con 08/12/23 [facility] - Bilateral nonobstructing subcentimeter renal calculi measuring up to 5 mm in RSP. KUB 10/08/23 - Bilateral nephrolithiasis. CT AP w con 04/22/24 [facility] - Two small R renal stones and a benign-appearing cyst. *ordered due to weight loss wo known cause KUB 07/05/24 [facility] - Neg. Pt unable to provide urine sample today. Reviewed imaging with pt. Small stones present, do not require tx. Will cont to monitor. Shares workup with PCP regarding weight loss wo known cause was neg. Has decreased appetite. Follow up 18 mos with KUB or sooner if needed. Pt understands and agrees with plan. 2. Adrenal nodule (E27.9: Disorder of adrenal gland, unspecified) CT AP w con 04/22/24 [facility] - Stable, chronic, 11 mm L adrenal nodule. Not worrisome, stable. 3. Anticoagulated (Z79.01: prison (current) use of anticoagulants) Warfarin for A-fib. [1] Overall the patient is aware that she has only 2 small tiny stones in the right kidney, found by CT scan but not confirmed on the KUB which followed a couple months later. CT was obtained secondary to her weight loss which sounds to be due to decreased appetite. Her primary care physicians are evaluating and monitoring that over time. Patient agrees now to continue with q. 18-month follow-up with KUB. Push the fluids to keep the urine clear Follow-up With When Contact Information CORA AGUIAR, Williams P, URL [address] [address]- Additional Instructions: 18 mos with KUB Patient Education Dietary Guidelines to Help Prevent Kidney Stones I, Julita Vu, personally scribed for Dr. Shepherd on 07/12/2024 11:45:03. . Portions of this record may have been created with voice recognition artificial intelligence software, specifically Bergey's, AppVault and or Kanbox. Substitutions may have occurred due to the inherent limitations of voice recognition and artificial intelligence software. Problem List/Past Medical History Ongoing Abdominal pain Adrenal nodule Afib Anticoagulated Anxiety BMI 27.0-27.9,adult Depression Diabetes Flank pain Former smoker Frequent urination Heart murmur History of uterine cancer Hx of custodial use of blood thinners Kidney stone Kidney stones Nocturia Ureteral stone Ureteral stone with hydronephrosis Historical No qualifying data Procedure/Surgical History Lithotripsy (08/14/2023), ESWL - Extracorporeal shockwave lithotripsy [...] Cataract extraction, Partial lobectomy of lung, Tonsillectomy. Medications acarbose, 100 mg, Oral, TID aspirin 8 (more content not included)... Normal [facility] Comment on above: Result Comment: Elec tronically Signed By: Williams SHEPHERD MD\.br\Date and Time Signed: 07/12/24 12:24 EST\.br\Electronically Co-Signed By: Julita Vu\.br\Date and Time Co-Signed: 07/12/24 11:46 EST [facility] PROTHROMBIN TIME INR W/O COUMon 07-01-2024 Interpretation and review of laboratory results Abnormal [facility] PT Coag (PPP) [Time] 30.3 s High [facility] INR 3.21 [facility] Comment on above: DESIRED INR: 2.0-3.0 CONDITIONS NOT LISTED BELOW 2.5-3.5 FOR PROSTHETIC HEART VALVE REPLACEMENT 2.5-3.5 RECURRENT THROMBOSIS [facility] ALL CBC WITH AUTO DIFFon BASOPHILS ABSOLUTE AUTO 0.1 [facility] Basophils/100 WBC (Bld) 0.8 % 0.2 - 2.0 % [facility] Eosinophils/100 WBC (Bld) 3.2 % 0.9 - 7.0 % [facility] Erythrocyte distribution width (RBC) [Ratio] 14.5 % 11.0 - 15.0 % [facility] Hematocrit (Bld) [Volume fraction] 38.1 % 36.0 - 48.0 % [facility] Hemoglobin (Bld) [Mass/Vol] 12.3 g/dL 12.0 - 16.0 g/dL [facility] IMMATURE GRANULOCYTES ABS AUTO 0.03 [facility] Immature granulocytes/100 WBC (Bld) 0.5 % 0.0 - 0.5 % [facility] Interpretation and review of laboratory results Abnormal [facility] LYMPHOCYTES ABSOLUTE AUTO 2 [facility] Lymphocytes/100 WBC (Bld) 30.8 % 20.5 - 60.0 % [facility] MCH (RBC) [Entitic mass] 31.6 pg 26.7 - 34.0 pg [facility] MCHC (RBC) [Mass/Vol] 32.3 g/dL 29.9 - 35.2 g/dL [facility] MCV (RBC) [Entitic vol] 97.9 fL 81.0 - 99.0 fL [facility] MONOCYTES ABSOLUTE AUTO 0.5 [facility] Monocytes/100 WBC (Bld) 7.7 % 1.7 - 12.0 % [facility] NEUTROPHILS ABSOLUTE AUTO 3.8 [facility] Neutrophils/100 WBC (Bld) 57 % 43.0 - 75.0 % [facility] Platelet mean volume (Bld) [Entitic vol] 8.9 fL Low 9.5 - 13.5 fL [facility] EO # 0.2 [facility] PLT 300 [facility] RBC 3.89 Low [facility] WBC 6.6 [facility] PROTHROMBIN TIME INR W/O COUMon 05-14-2024 Interpretation and review of laboratory results Abnormal [facility] PT Coag (PPP) [Time] 23 s High [facility] INR 2.36 [facility] Comment on above: DESIRED INR: 2.0-3.0 CONDITIONS NOT LISTED BELOW 2.5-3.5 FOR PROSTHETIC HEART VALVE REPLACEMENT 2.5-3.5 RECURRENT THROMBOSIS [facility] CREATININEon 04-22-2024 Creatinine [Mass/Vol] 0.84 mg/dL 0.55 - 1.02 mg/dL [facility] GFR/1.73 sq M.predicted CKD-EPI (S/P/Bld) [Vol rate/Area] >60 >=60 mL/min/1.73m 2 [facility] EGFR-NON AF CYMRO >60 >=60 mL/min/1.73m 2 [facility] ALL CBC WITH AUTO DIFFon BASOPHILS ABSOLUTE AUTO 0.0 [facility] Basophils/100 WBC (Bld) 0.6 % 0.2 - 2.0 % [facility] Eosinophils/100 WBC (Bld) 2.1 % 0.9 - 7.0 % [facility] Erythrocyte distribution width (RBC) [Ratio] 14.1 % 11.0 - 15.0 % [facility] Hematocrit (Bld) [Volume fraction] 41.8 % 36.0 - 48.0 % [facility] Hemoglobin (Bld) [Mass/Vol] 13.5 g/dL 12.0 - 16.0 g/dL [facility] IMMATURE GRANULOCYTES ABS AUTO 0.02 [facility] Immature granulocytes/100 WBC (Bld) 0.3 % 0.0 - 0.5 % [facility] Interpretation and review of laboratory results Abnormal [facility] LYMPHOCYTES ABSOLUTE AUTO 2.1 [facility] Lymphocytes/100 WBC (Bld) 32.2 % 20.5 - 60.0 % [facility] MCH (RBC) [Entitic mass] 31.0 pg 26.7 - 34.0 pg [facility] MCHC (RBC) [Mass/Vol] 32.3 g/dL 29.9 - 35.2 g/dL [facility] MCV (RBC) [Entitic vol] 95.9 fL 81.0 - 99.0 fL [facility] MONOCYTES ABSOLUTE AUTO 0.5 [facility] Monocytes/100 WBC (Bld) 6.8 % 1.7 - 12.0 % [facility] NEUTROPHILS ABSOLUTE AUTO 3.8 [facility] Neutrophils/100 WBC (Bld) 58.0 % 43.0 - 75.0 % [facility] Platelet mean volume (Bld) [Entitic vol] 8.6 fL Low 9.5 - 13.5 fL [facility] EO # 0.1 [facility] PLT 316 [facility] RBC 4.36 [facility] WBC 6.6 [facility] SRMCOH PROTHROMBIN TIME INR W/O COUMon 04-13-2024 Interpretation and review of laboratory results Abnormal [facility] PT Coag (PPP) [Time] 27.7 s High [facility] INR 2.90 [facility] Comment on above: DESIRED INR: 2.0-3.0 CONDITIONS NOT LISTED BELOW 2.5-3.5 FOR PROSTHETIC HEART VALVE REPLACEMENT 2.5-3.5 RECURRENT THROMBOSIS [facility] Magnesium [Mass/volume] in S fartun or PlasmaOrdered By: Radames Monteiro on 03-31-2024 Magnesium [Mass/Vol] 1.9 mg/dL Normal 1.9-2.7 [facility] Comment on above: Result Comment: PERF ORMED BY: [facility] [address] [place] [address] PATHOLOGIST UPSETTER BERNIE GRAYSON M.D. Performed By: #### M G PHOS #### [facility] [address] Phosphate [Mass/volume] in S fartun or PlasmaOrdered By: Radames Monteiro on 03-31-2024 Phosphate [Mass/Vol] 3.7 mg/dL Normal 2.5-4.5 [facility] Comment on above: Performed By: #### M VALENTINA Alcantara #### [facility] [address] ALL CBC WITH AUTO DIFFon BASOPHILS ABSOLUTE AUTO 0.0 [facility] Basophils/100 WBC (Bld) 0.6 % 0.2 - 2.0 % [facility] Eosinophils/100 WBC (Bld) 5.1 % 0.9 - 7.0 % [facility] Erythrocyte distribution width (RBC) [Ratio] 14.3 % 11.0 - 15.0 % [facility] Hematocrit (Bld) [Volume fraction] 41.5 % 36.0 - 48.0 % [facility] Hemoglobin (Bld) [Mass/Vol] 13.3 g/dL 12.0 - 16.0 g/dL [facility] IMMATURE GRANULOCYTES ABS AUTO 0.01 [facility] Immature granulocytes/100 WBC (Bld) 0.1 % 0.0 - 0.5 % [facility] Interpretation and review of laboratory results Abnormal [facility] LYMPHOCYTES ABSOLUTE AUTO 2.9 [facility] Lymphocytes/100 WBC (Bld) 39.4 % 20.5 - 60.0 % [facility] MCH (RBC) [Entitic mass] 30.9 pg 26.7 - 34.0 pg [facility] MCHC (RBC) [Mass/Vol] 32.0 g/dL 29.9 - 35.2 g/dL [facility] MCV (RBC) [Entitic vol] 96.5 fL 81.0 - 99.0 fL [facility] MONOCYTES ABSOLUTE AUTO 0.4 [facility] Monocytes/100 WBC (Bld) 6.1 % 1.7 - 12.0 % [facility] NEUTROPHILS ABSOLUTE AUTO 3.5 [facility] Neutrophils/100 WBC (Bld) 48.7 % 43.0 - 75.0 % [facility] Platelet mean volume (Bld) [Entitic vol] 8.7 fL Low 9.5 - 13.5 fL [facility] EO # 0.4 [facility] PLT 291 [facility] TB RBC 4.30 [facility] TB WBC 7.2 [facility] SRMCO[facility] PROTHROMBIN TIME INR W/O COUMon 03-17-2024 Interpretation and review of laboratory results Abnormal [facility] PT Coag (PPP) [Time] 28.2 s High [facility] INR 2.96 [facility] Comment on above: DESIRED INR: 2.0-3.0 CONDITIONS NOT LISTED BELOW 2.5-3.5 FOR PROSTHETIC HEART VALVE REPLACEMENT 2.5-3.5 RECURRENT THROMBOSIS [facility] Ambulatory Visit Summaryon 0 10-14-2023 Ambulatory Visit [...] AGUIAR, Williams Venegas Where: [facility] [place] [facility] Patient Educationon 10-14-19 24 Patient Education Nephrology Dietary Guidelines to Help [...] Spinach (cooked), rhubarb, beets, sweet potatoes, and Monegasque chard. ? Peanuts. ? Potato chips, greenlandic fries, and baked potatoes with skin on. ? Nuts and nut products. ? Chocolate. ? If you regularly take a diuretic medicine, make sure to eat at least 1 or 2 servings of fruits or vegetables that are high in potassium each day. These include: ? Avocado. ? Banana. ? [place], prune, carrot, or tomato juice. ? Baked [...] fish oil, or vitamin B6. ? Take ifwr-rbp-jvjjmcf and prescription medicines only as told by your health care provider. These include supplements. What foods sh (more content not included)... Normal [facility] Urology Office/Clinic Noteon 10-14-2023 Urology Office/Clinic Note Chief Complaint Pt is here for 3 month w/ met w/u & KUB HPI Staff 6 month follow up w/KUB Pt canceled Cysto/R retro/possible: ureteroscopy, laser, basket, stent placement 04/07/23 due to passing stones Pt was then seen at [facility] on 08/12/23 due to abdominal pain, [...] with voice recognition artificial intelligence software, specifically Bergey's, AppVault and or Kanbox. Substitutions may have occurred due to the inherent limitations of voice recognition and artificial intelligence software. 1. Ureteral stone with hydronephrosis (N13.2: Hydronephrosis with renal and ureteral calculous obstruction) [facility] ER visit 08/12/23 due to R flank pain radiating to RLQ. Given Flomax, Percocet, Zofran, and Keflex. Case was discussed w/ Dr. Santacruz. CT AP wo con 08/12/23 [facility] - Moderate R hydro secondary to 5mm [...] bilateral nephrolithiasis. -See #1 3. 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 [...] CORA AGUIAR, Williams Venegas, URL [address] [place] [id number]- Additional Instructions: 06/2024 with KUB Patient Education Dietary Guidelines to Help Prevent Kidney Stones I, Charisse Rutherford, personally scribed for Dr. Shepherd on 10/14/2023 09:33:56. Electronically signed by (more content not included)... [facility] Comment on above: Result Comment: Elec tronically Signed By: Williams SHEPHERD MD\.br\Date and Time Signed: 10/14/23 09:38 EDT\.br\Electronically Co-Signed By: Charisse Rutherford\.br\Date and Time Co-Signed: 10/14/23 09:34 EDT RAD - MISCon 10-10-2023 RAD - MISC [id number] .00TIFF [facility] Lab Reportson 08-27-2023 Lab Reports [id number]#1 .00TIFF [facility] Lab Reportson 08-25-2023 Lab Reports [id number]#1 .00TIFF [facility] Lab Reports [id number]#1 .00TIFF [facility] Lab Reportson 08-22-2023 Lab Reports [id number]#1 .00TIFF [facility] Lab Reportson 08-21-2023 Lab Reports [id number]#1 .00TIFF [facility] Lab Reports [id number]#1 .00TIFF [facility] ALL BUNon 08-20-2023 Urea nitrogen [Mass/Vol] 12.0 mg/dL 7.0 - 18.0 mg/dL [facility] ALL CARBON DIOXIDEon 024 CO2 [Moles/Vol] 30.1 mmol/L 21.0 - 32.0 mmol/L [facility] ALL CHLORIDEon 08-20-2023 Chloride [Moles/Vol] 104 mmol/L 98 - 107 mmol/L [facility] ALL PHOSPHOROUSon 08-20-2023 Phosphate [Mass/Vol] 4.1 mg/dL 2.6 - 4.7 mg/dL [facility] ALL SODIUMon 08-20-2023 Sodium [Moles/Vol] 141 mmol/L 136 - 145 mmol/L [facility] ALL URIC ACIDon 08-20-2023 Urate [Mass/Vol] 4.4 mg/dL 2.6 - 6.0 mg/dL [facility] CALCIUMon 08-20-2023 Calcium [Mass/Vol] 9.1 mg/dL 8.5 - 10.1 mg/dL [facility] No Panel Informationon 08-20 [facility] CREATININEon 08-20-2023 Creatinine [Mass/Vol] 0.86 mg/dL 0.55 - 1.02 mg/dL [facility] GFR/1.73 sq M.predicted CKD-EPI (S/P/Bld) [Vol rate/Area] >60 60 - PINF [facility] EGFR-NON AF CYMRO >60 60 - PINF [facility] Consent for Procedure/Surger yon 08-15-2023 Consent for Procedure/Surgery [id number]#1 .00TIFF Normal [facility] ED Note-Physicianon 08-15-19 24 ED Note-Physician [id number]#1. 00TIFF Normal [facility] Lab Reportson 08-15-2023 Lab Reports [id number]#1. 00TIFF Normal [facility] Lab Reports [id number]#1 .00TIFF Normal [facility] Lab Reports [id number]#1 .00TIFF Normal [facility] Operative Reporton Operative Report [id number]#1 .00TIFF Normal [facility] RAD - CT Reporton 08-15-2023 RAD - CT Report [id number]#1. 00TIFF [facility] Ambulatory Visit Summaryon 0 08-13-2023 Ambulatory [...] AGUIAR, Williams Venegas Where: [facility] Ju Normal [address] [place] [address]- \.br\ You Need to Schedule the Following Appointments\.br \ Follow Up with ANGELITO AGUIAR, Renato Arzola, URL When: \.br\ Comments:\.br\ sched ureteroscopy\.br \ f/u w/ [facility] scheduled 10/14/23\.br\ Where:\.br\ [facility] [address]\.br\ [place] [address]-\.br\ [phone]\.br\ Medications\.br\ What How Much When Instructions\.br \ [...] murmur\.br\ History of uterine cancer\.br\ Hx of custodial use of blood thinners\.br\ Kidney stones\.br\ Nocturia\.br\ [...] including vitamins, herbs, eye drops, creams, and dioe-wyl-pnyzfkh medicines.\.br\ ? \.br\ Any problems you or [...] you to take them.\.br\ ? \.br\ Taking hpli-zyk-aodiyua medicines, vitamins, herbs, and supplements.\.br \ Eating [...] You may also have tests, such [facility] Patient Educationon 08-13-19 Patient Education Nephrology [...] including vitamins, herbs, eye drops, creams, and mkqv-bfx-jfenpoz medicines. ? Any problems you or family [...] tells you to take them. ? Taking fxld-nnc-oytrehv medicines, vitamins, herbs, and supplements. Eating and [...] the pieces (more content not included)... Normal [facility] Urology Office/Clinic Noteon 08-13-2023 Urology Office/Clinic Note Chief Complaint Patient is here for follow up to [facility] HPI Staff Patient is here for f/u to [facility] on 08/12/23 due to distal right [...] Hydronephrosis with renal and ureteral calculous obstruction) [facility] ER visit 08/12/23 due to R [...] abdominal pain) See #1 4. Anticoagulated (Z79.01: prison (current) use of anticoagulants) On warfarin 3mg for a-fib. States she did not take this last night. Advised pt not to take her dose today either. Follow-up With When Contact Information ANGELITO AGUIAR, Renato Arzola, URL [facility] [address], [place] [phone] Additional Instructions: sched ureteroscopy f/u w/ [facility] scheduled 10/14/23 Patient Education Laser Therapy for Kidney Stones I, Amy Gallagher, personally scribed for Dr. Santacruz on 08/13/2023 11:35:03. . Documentation recorded by the scribe, Amy Gallagher, accurately reflects the services(s) I performed and decisions made by me. Authenticated by Dr. Santacruz on 08/13/2023 11:37:02. Problem List/Past Medical History [place] (more content not included)... Normal [facility] Comment on above: Result Comment: Elec tronically Signed By: Renato SANTACRUZ MD\.br\Date and Time Signed: 08/13/23 11:37 EST\.br\Electronically Co-Signed By: Amy Gallagher\.br\Date and Time Co-Signed: 08/13/23 11:35 EST COVID/FLU/RSV RT-PCRon 07-25 SARS-CoV-2 (COVID-19) RNA TREASURE+probe Ql (Unsp spec) Negative [facility] Other COVID/FLU/RSV RT-PCR Negative [facility] Other COVID/FLU/RSV [facility] Other Activated partial thrombopla stin time (aPTT) in platelet poor plasma by coagulation aOrdered By: Williams Shepherd on 03-26-2023 aPTT Coag (PPP) [Time] 35.9 s 25.1-36.5 [facility] Comment on above: A hematocrit value g reater than 55% may lead to inaccurate results in coagulation testing. Patients having hematocrit values >55% require a special collection tube for coagulation studies. Please contact the laboratory at [phone] for redraw instructions. Basophils Auto (Bld) [#/Vol] Ordered By: Williams Shepherd on 03-26-2023 Basophils (Bld) [#/Vol] 0.0 10*3/uL 0.0-0.2 [facility] Basophils/100 WBC Auto (Bld) Ordered By: Williams Shepherd on 03-26-2023 Basophils/100 WBC (Bld) 0.8 % . [facility] Calcium [Mass/volume] in Ser um or PlasmaOrdered By: Williams Shepherd on 03-26-2023 Calcium [Mass/Vol] 10.0 mg/dL 8.6-10.3 [facility] Carbon dioxide, total [Moles /volume] in Serum or PlasmaOrdered By: Williams Shepherd on 03-26-2023 CO2 [Moles/Vol] 30.0 mmol/L 21.0-31.0 [facility] Chloride [Moles/volume] in S fartun or PlasmaOrdered By: Williams Shepherd on 03-26-2023 Chloride [Moles/Vol] 104 mmol/L 98-107 [facility] Creatinine [Mass/volume] in Serum or PlasmaOrdered By: Williams Shepherd on 03-26-2023 Creatinine [Mass/Vol] 0.85 mg/dL 0.60-1.20 [facility] Eosinophils Auto (Bld) [#/Vo l]Ordered By: Williams Shepherd on 03-26-2023 Eosinophils (Bld) [#/Vol] 0.3 10*3/uL 0.0-0.45 [facility] Eosinophils/100 WBC Auto (Bl d)Ordered By: Williams Shepherd on 03-26-2023 Eosinophils/100 WBC (Bld) 4.3 % . [facility] Erythrocyte distribution wid th Auto (RBC) [Ratio]Ordered By: Williams Shepherd on 03-26-2023 Erythrocyte distribution width (RBC) [Ratio] 14.8 % 11.9-15.3 [facility] Glucose [Mass/volume] in Ser um or PlasmaOrdered By: Williams Shepherd on 03-26-2023 Glucose [Mass/Vol] 111 mg/dL 70-100 [facility] Comment on above: ADA recommended refe rence rangeRandom Glucose Reference Range is dependent on time and content of last meal. Glucose of more than 200 mg/dL in a nonstressed, ambulatory subject supports the diagnosis of Diabetes Mellitus. Hematocrit Auto (Bld) [Volum e fraction]Ordered By: Williams Shepherd on 03-26-2023 Hematocrit (Bld) [Volume fraction] 40.3 % 34.0-46.4 [facility] Hemoglobin [Mass/volume] in BloodOrdered By: Williams Shepherd on 03-26-2023 Hemoglobin (Bld) [Mass/Vol] 13.3 g/dL 11.8-15.4 [facility] INR in Platelet poor plasma by Coagulation assayOrdered By: Williams Shepherd on 03-26-2023 INR Coag (PPP) [Relative time] 2.3 {INR} [facility] Comment on above: INR Therapeutic [...] RBC Auto (Bld) [#/Vol] 5.9 10*3/uL 3.8-11.6 [facility] Lymphocytes Auto (Bld) [#/Vo l]Ordered By: Williams Shepherd on 03-26-2023 Lymphocytes (Bld) [#/Vol] 2.2 10*3/uL 1.00-4.8 [facility] Lymphocytes/100 WBC Auto (Bl d)Ordered By: Williams Shepherd on 03-26-2023 Lymphocytes/100 WBC (Bld) 36.9 % . [facility] MCH Auto (RBC) [Entitic mass ]Ordered By: Williams Shepherd on 03-26-2023 MCH (RBC) [Entitic mass] 31.1 pg 24.7-34.3 [facility] MCHC Auto (RBC) [Mass/Vol]Or dered By: Williams Shepherd on 03-26-2023 MCHC (RBC) [Mass/Vol] 32.9 g/dL 32.0-35.0 [facility] MCV Auto (RBC) [Entitic vol] Ordered By: Williams Shepherd on 03-26-2023 MCV (RBC) [Entitic vol] 94.4 fL 80-100 [facility] Monocytes Auto (Bld) [#/Vol] Ordered By: Williams Shepherd on 03-26-2023 Monocytes (Bld) [#/Vol] 0.5 10*3/uL 0.0-0.8 [facility] Monocytes/100 WBC Auto (Bld) Ordered By: Williams Shepherd on 03-26-2023 Monocytes/100 WBC (Bld) 7.8 % . [facility] Neutrophils Auto (Bld) [#/Vo l]Ordered By: Williams Shepherd on 03-26-2023 Neutrophils (Bld) [#/Vol] 3.0 10*3/uL 1.8-7.7 [facility] Neutrophils/100 WBC Auto (Bl d)Ordered By: Williams Shepherd on 03-26-2023 Neutrophils/100 WBC (Bld) 50.2 % . [facility] No Panel InformationOrdered By: Williams Shepherd on 03-26-2023 Estimated GFR (CKD-EPI) > 60.0 mL/Min [facility] Creatinine Clearance (Chem N/A [facility] Nucleated erythrocytes [Pres ence] in Blood by Automated countOrdered By: Williams Shepherd on 03-26-2023 Nucleated RBC Auto Ql (Bld) 0.3 /100{WBC} 0-0.5 [facility] Platelet mean volume Auto (B ld) [Entitic vol]Ordered By: Williams Shepherd on 03-26-2023 Platelet mean volume (Bld) [Entitic vol] 7.1 fL 6.3-10.7 [facility] Platelets Auto (Bld) [#/Vol] Ordered By: Williams Shepherd on 03-26-2023 Platelets (Bld) [#/Vol] 363 10*3/uL 150-450 [facility] Potassium [Moles/volume] in Serum or PlasmaOrdered By: Williams Shepherd on 03-26-2023 Potassium [Moles/Vol] 5.0 mmol/L 3.5-5.1 [facility] Prothrombin time (PT)Ordered By: Williams Shepherd on 03-26-2023 PT Coag (PPP) [Time] 26.6 s 9.0-12.9 [facility] Comment on above: A hematocrit value g reater than 55% may lead to inaccurate results in coagulation testing. Patients having hematocrit values >55% require a special collection tube for coagulation studies. Please contact the laboratory at [phone] for redraw instructions. RBC Auto (Bld) [#/Vol]Ordere d By: Williams Shepherd on 03-26-2023 RBC (Bld) [#/Vol] 4.27 10*6/uL 3.60-5.00 [facility] Serum or plasma anion gap de terminationOrdered By: Williams Shepherd on 03-26-2023 Anion gap [Moles/Vol] 13.0 mmol/L 6.0-15.0 [facility] Sodium [Moles/volume] in Ser um or PlasmaOrdered By: Williams Shepherd on 03-26-2023 Sodium [Moles/Vol] 142 mmol/L 136-145 [facility] Urea nitrogen [Mass/volume] in Serum or PlasmaOrdered By: Williams Shepherd on 03-26-2023 Urea nitrogen [Mass/Vol] 12 mg/dL 7-25 [facility] WBC Auto (Bld) [#/Vol]Ordere d By: Williams Shepherd on 03-26-2023 WBC (Bld) [#/Vol] 5.9 10*3/uL 3.8-11.6 [facility] PROTIMEon 12-02-2022 INR Coag (PPP) [Relative time] 3.62 {INR} Normal [facility] Comment on above: Performed By: #### P T #### [facility] [address] [address] [address] Tg Fierro INR GUIDELINES SEE BELOW Normal [facility] Comment on above: Result Comment: LAURENCE RED INR: 2.0 - 3.0 CONDITIONS NOT LISTED BELOW 2.5 - 3.5 FOR PROSTHETIC HEART VALVE REPLACEMENT 2.5 - 3.5 RECURRENT THROMBOSIS Performed By: #### P T #### [facility] [address] [address] [address] Tg Fierro PT Coag (PPP) [Time] 35.7 s Critically high 9.0-11.6 [facility] Comment on above: Performed By: #### P T #### [facility] [address] [place] [address] Dr. Tg Fierro PROTIMEon 11-11-2022 INR Coag (PPP) [Relative time] 1.90 {INR} Normal [facility] Comment on above: Performed By: #### P T #### [facility] [address] [place] [address] Dr. Tg Fierro INR GUIDELINES SEE BELOW Normal [facility] Comment on above: Result Comment: LAURENCE RED INR: 2.0 - 3.0 CONDITIONS NOT LISTED BELOW 2.5 - 3.5 FOR PROSTHETIC HEART VALVE REPLACEMENT 2.5 - 3.5 RECURRENT THROMBOSIS Performed By: #### P T #### [facility] [address] [place] [address] Dr. Tg Fierro PT Coag (PPP) [Time] 19.4 s Critically high 9.0-11.6 [facility] Comment on above: Performed By: #### P T #### [facility] [address] [place] [address] Dr. Tg Fierro CBC AUTO DIFFon 10-25-2022 BASO # 0.0 103/ul Normal 0.0-0.1 [facility] Comment on above: Performed By: #### P T #### [facility] [address] [place] [address] Dr. Tg Fierro Basophils/100 WBC (Bld) 0.5 % Normal 0.2-2.0 [facility] Comment on above: Performed By: #### P T #### [facility] [address] [place] [address] Dr. Tg Fierro EO # 0.2 103/ul Normal 0.0-0.7 [facility] Comment on above: Performed By: #### P T #### [facility] [address] [place] [address] Dr. Tg Fierro Eosinophils/100 WBC (Bld) 2.7 % Normal 0.9-7.0 [facility] Comment on above: Performed By: #### P T #### [facility] [address] [place] [address] Dr. Tg Fierro Erythrocyte distribution width (RBC) [Ratio] 13.4 % Normal 11.0-15.0 [facility] Comment on above: Performed By: #### P T #### [facility] [address] [place] [address] Dr. Tg Fierro Hematocrit (Bld) [Volume fraction] 40.7 % Normal 36.0-48.0 [facility] Comment on above: Performed By: #### P T #### [facility] [address] [place] [address] Dr. Tg Fierro Hemoglobin (Bld) [Mass/Vol] 13.2 g/dL Normal 12.0-16.0 [facility] Comment on above: Performed By: #### P T #### [facility] [address] [place] [address] Dr. Tg Fierro IG # 0.03 10e3/ul Normal 0.00-0.03 [facility] Comment on above: Performed By: #### P T #### [facility] [address] [place] [address] Dr. Tg Fierro IG % 0.5 % Normal 0.0-0.5 [facility] Comment on above: Performed By: #### P T #### [facility] [address] [place] [address] Dr. Tg Fierro LYMPH # 2.1 103/ul Normal 1.2-3.8 [facility] Comment on above: Performed By: #### P T #### [facility] [address] [place] [address] Dr. Tg Fierro Lymphocytes/100 WBC (Bld) 34.9 % Normal 20.5-60.0 [facility] Comment on above: Performed By: #### P T #### [facility] [address] [place] [address] Dr. Tg Fierro MANUAL DIFF REQ NO Normal [facility] Comment on above: Performed By: #### P T #### [facility] [address] [place] [address] Dr. Tg Fierro MCH (RBC) [Entitic mass] 30.5 pg Normal 26.7-34.0 [facility] Comment on above: Performed By: #### P T #### [facility] [address] [place] [address] Dr. Tg Fierro MCHC (RBC) [Mass/Vol] 32.4 g/dL Normal 29.9-35.2 [facility] Comment on above: Performed By: #### P T #### [facility] [address] [place] [address] Dr. Tg Fierro MCV (RBC) [Entitic vol] 94.0 fL Normal 81.0-99.0 [facility] Comment on above: Performed By: #### P T #### [facility] [address] [place] [address] Dr. Tg Fierro MONO # 0.4 103/ul Normal 0.3-0.8 [facility] Comment on above: Performed By: #### P T #### [facility] [address] [place] [address] Dr. Tg Fierro Monocytes/100 WBC (Bld) 7.1 % Normal 1.7-12.0 [facility] Comment on above: Performed By: #### P T #### [facility] [address] [place] [address] Dr. Tg Fierro NEUT # 3.2 103/ul Normal 1.4-6.5 [facility] Comment on above: Performed By: #### P T #### [facility] [address] [place] [address] Dr. Tg Fierro Neutrophils/100 WBC (Bld) 54.3 % Normal 43.0-75.0 [facility] Comment on above: Performed By: #### P T #### [facility] [address] [place] [address] Dr. Tg Fierro Platelet mean volume (Bld) [Entitic vol] 8.7 fL Critically low 9.5-13.5 [facility] Comment on above: Performed By: #### P T #### [facility] [address] [place] [address] Dr. Tg Fierro PLT 295 103/ul Normal 150-450 [facility] Comment on above: Performed By: #### P T #### [facility] [address] [place] [address] Dr. Tg Fierro RBC 4.33 106/ul Normal 4.20-5.40 [facility] Comment on above: Performed By: #### P T #### [facility] [address] [place] [address] Dr. Tg Fierro WBC 5.9 103/ul Normal 4.0-11.0 [facility] Comment on above: Performed By: #### P T #### [facility] [address] [place] [address] Dr. Tg Fierro PROF 14(COMP METB)on 023 Albumin [Mass/Vol] 3.8 g/dL Normal 3.4-5.0 [facility] Comment on above: Performed By: #### C MP #### [facility] [address] [place] [address] Dr. Tg Fierro Albumin/Globulin [Mass ratio] 1.2 {ratio} Normal [facility] Comment on above: Performed By: #### C MP #### [facility] [address] [place] [address] Dr. Tg Fierro ALP [Catalytic activity/Vol] 49 U/L Normal 46-116 [facility] Comment on above: Performed By: #### C MP #### [facility] [address] [place] [address] Dr. Tg iFerro ALT [Catalytic activity/Vol] 21 U/L Normal 14-59 [facility] Comment on above: Performed By: #### C MP #### [facility] [address] [place] [address] Dr. Tg Fierro Anion gap [Moles/Vol] 13.3 mmol/L Normal [facility] Comment on above: Performed By: #### C MP #### [facility] [address] [place] [address] Dr. Tg Fierro AST [Catalytic activity/Vol] 14 U/L Critically low 15-37 [facility] Comment on above: Performed By: #### C MP #### [facility] [address] [address] [address] Tg Fierro Bilirubin [Mass/Vol] 0.5 mg/dL Normal 0.2-1.0 [facility] Comment on above: Performed By: #### C MP #### [facility] [address] [address] [address] Tg Fierro Calcium [Mass/Vol] 9.5 mg/dL Normal 8.5-10.1 [facility] Comment on above: Performed By: #### C MP #### [facility] [address] [address] [address] Tg Fierro Chloride [Moles/Vol] 104 mmol/L Normal 98-107 [facility] Comment on above: Performed By: #### C MP #### [facility] [address] [address] [address] Tg Fierro CO2 [Moles/Vol] 29.3 mmol/L Normal 21.0-32.0 [facility] Comment on above: Performed By: #### C MP #### [facility] [address] [address] [address] Tg Fierro Creatinine [Mass/Vol] 0.93 mg/dL Normal 0.55-1.02 [facility] Comment on above: Performed By: #### C MP #### [facility] [address] [address] [address] Tg Fierro EGFR-AF CYMRO >60 Normal >=60 [facility] Comment on above: Performed By: #### C MP #### [facility] [address] [address] [address] Tg Fierro EGFR-NON AF CYMRO 59 mL/min/1.73m2 Critically low >=60 [facility] Comment on above: Performed By: #### C MP #### [facility] [address] [address] [address] Tg Fierro Globulin (S) [Mass/Vol] 3.2 g/dL Normal [facility] Comment on above: Performed By: #### C MP #### [facility] [address] [address] [address] Tg Fierro Glucose [Mass/Vol] 186 mg/dL Critically high 74-106 [facility] Comment on above: Performed By: #### C MP #### [facility] [address] [address] [address] Tg Fierro Potassium [Moles/Vol] 4.6 mmol/L Normal 3.5-5.1 [facility] Comment on above: Performed By: #### C MP #### [facility] [address] [address] [address] Tg Fierro Protein [Mass/Vol] 7.0 g/dL Normal 6.4-8.2 [facility] Comment on above: Performed By: #### C MP #### [facility] [address] [place] [address] Dr. Tg Fierro Sodium [Moles/Vol] 142 mmol/L Normal 136-145 [facility] Comment on above: Performed By: #### C MP #### [facility] [address] [address] [address] Tg Fierro Urea nitrogen [Mass/Vol] 15.0 mg/dL Normal 7.0-18.0 [facility] Comment on above: Performed By: #### C MP #### [facility] [address] [address] [address] Tg Fierro Urea nitrogen/Creatinine [Mass ratio] 16.1 mg/mg Normal [facility] Comment on above: Performed By: #### C MP #### [facility] [address] [address] [address] Tg Fierro SED RATE LIBERTY HILLERGRENon 2022 SED RATE 9 mm/hr Normal <=30 [facility] Comment on above: Performed By: #### C MP #### [facility] [address] [address] [address] Tg Fierro PROTIMEon 10-14-2022 INR Coag (PPP) [Relative time] 1.94 {INR} Normal [facility] Comment on above: Performed By: #### P T #### [facility] [address] [place] [address] Dr. Tg Fierro INR GUIDELINES SEE BELOW Normal [facility] Comment on above: Result Comment: LAURENCE RED INR: 2.0 - 3.0 CONDITIONS NOT LISTED BELOW 2.5 - 3.5 FOR PROSTHETIC HEART VALVE REPLACEMENT 2.5 - 3.5 RECURRENT THROMBOSIS Performed By: #### P T #### [facility] [address] [place] [address] Dr. Tg Fierro PT Coag (PPP) [Time] 19.8 s Critically high 9.0-11.6 [facility] Comment on above: Performed By: #### P T #### [facility] [address] [place] [address] Dr. Tg Fierro CBC AUTO DIFFon 09-24-2022 BASO # 0.1 103/ul Normal 0.0-0.1 [facility] Comment on above: Performed By: #### P T #### [facility] [address] [place] [address] Dr. Tg Fierro Basophils/100 WBC (Bld) 0.7 % Normal 0.2-2.0 [facility] Comment on above: Performed By: #### P T #### [facility] [address] [place] [address] Dr. Tg Fierro EO # 0.3 103/ul Normal 0.0-0.7 [facility] Comment on above: Performed By: #### P T #### [facility] [address] [place] [address] Dr. Tg Fierro Eosinophils/100 WBC (Bld) 3.6 % Normal 0.9-7.0 [facility] Comment on above: Performed By: #### P T #### [facility] [address] [place] [address] Dr. Tg Fierro Erythrocyte distribution width (RBC) [Ratio] 13.4 % Normal 11.0-15.0 [facility] Comment on above: Performed By: #### P T #### [facility] [address] [place] [address] Dr. Tg Fierro Hematocrit (Bld) [Volume fraction] 38.4 % Normal 36.0-48.0 [facility] Comment on above: Performed By: #### P T #### [facility] [address] [place] [address] Dr. Tg Fierro Hemoglobin (Bld) [Mass/Vol] 12.7 g/dL Normal 12.0-16.0 [facility] Comment on above: Performed By: #### P T #### [facility] [address] [place] [address] Dr. Tg Fierro IG # 0.05 10e3/ul Critically high 0.00-0.03 [facility] Comment on above: Performed By: #### P T #### [facility] [address] [place] [address] Dr. Tg Fierro IG % 0.7 % Critically high 0.0-0.5 [facility] Comment on above: Performed By: #### P T #### [facility] [address] [place] [address] Dr. gT Fierro LYMPH # 2.6 103/ul Normal 1.2-3.8 [facility] Comment on above: Performed By: #### P T #### [facility] [address] [place] [address] Dr. Tg Fierro Lymphocytes/100 WBC (Bld) 34.2 % Normal 20.5-60.0 [facility] Comment on above: Performed By: #### P T #### [facility] [address] [place] [address] Dr. Tg Fierro MANUAL DIFF REQ NO Normal [facility] Comment on above: Performed By: #### P T #### [facility] [address] [place] [address] Dr. Tg Fierro MCH (RBC) [Entitic mass] 31.2 pg Normal 26.7-34.0 [facility] Comment on above: Performed By: #### P T #### [facility] [address] [place] [address] Dr. Tg Fierro MCHC (RBC) [Mass/Vol] 33.1 g/dL Normal 29.9-35.2 [facility] Comment on above: Performed By: #### P T #### [facility] [address] [address] [address] Tg Fierro MCV (RBC) [Entitic vol] 94.3 fL Normal 81.0-99.0 [facility] Comment on above: Performed By: #### P T #### [facility] [address] [place] [address] Dr. Tg Fierro MONO # 0.6 103/ul Normal 0.3-0.8 [facility] Comment on above: Performed By: #### P T #### [facility] [address] [place] [address] Dr. Tg Fierro Monocytes/100 WBC (Bld) 8.1 % Normal 1.7-12.0 [facility] Comment on above: Performed By: #### P T #### [facility] [address] [place] [address] Dr. Tg Fierro NEUT # 4.1 103/ul Normal 1.4-6.5 [facility] Comment on above: Performed By: #### P T #### [facility] [address] [place] [address] Dr. Tg Fierro Neutrophils/100 WBC (Bld) 52.7 % Normal 43.0-75.0 [facility] Comment on above: Performed By: #### P T #### [facility] [address] [place] [address] Dr. Tg Fierro Platelet mean volume (Bld) [Entitic vol] 8.7 fL Critically low 9.5-13.5 [facility] Comment on above: Performed By: #### P T #### [facility] [address] [place] [address] Dr. Tg Fierro PLT 278 103/ul Normal 150-450 [facility] Comment on above: Performed By: #### P T #### [facility] [address] [place] [address] Dr. Tg Fierro RBC 4.07 106/ul Critically low 4.20-5.40 [facility] Comment on above: Performed By: #### P T #### [facility] [address] [place] [address] Dr. Tg Fierro WBC 7.7 103/ul Normal 4.0-11.0 [facility] Comment on above: Performed By: #### P T #### [facility] [address] [place] [address] Dr. Tg Fierro PROF 14(COMP METB)on 023 Albumin [Mass/Vol] 3.9 g/dL Normal 3.4-5.0 [facility] Comment on above: Performed By: #### C MP #### [facility] [address] [place] [address] Dr. Tg Fierro Albumin/Globulin [Mass ratio] 1.4 {ratio} Normal [facility] Comment on above: Performed By: #### C MP #### [facility] [address] [place] [address] Dr. Tg Fierro ALP [Catalytic activity/Vol] 59 U/L Normal 46-116 [facility] Comment on above: Performed By: #### C MP #### [facility] [address] [place] [address] Dr. Tg Fierro ALT [Catalytic activity/Vol] 21 U/L Normal 14-59 [facility] Comment on above: Performed By: #### C MP #### [facility] [address] [place] [address] Dr. Tg Fierro Anion gap [Moles/Vol] 10.8 mmol/L Normal [facility] Comment on above: Performed By: #### C MP #### [facility] [address] [place] [address] Dr. Tg Fierro AST [Catalytic activity/Vol] 9 U/L Critically low 15-37 [facility] Comment on above: Performed By: #### C MP #### [facility] [address] [place] [address] Dr. Tg Fierro Bilirubin [Mass/Vol] 0.3 mg/dL Normal 0.2-1.0 [facility] Comment on above: Performed By: #### C MP #### [facility] [address] [address] [address] Tg Fierro Calcium [Mass/Vol] 9.1 mg/dL Normal 8.5-10.1 [facility] Comment on above: Performed By: #### C MP #### [facility] [address] [address] [address] Tg Fierro Chloride [Moles/Vol] 104 mmol/L Normal 98-107 [facility] Comment on above: Performed By: #### C MP #### [facility] [address] [address] [address] Tg Fierro CO2 [Moles/Vol] 28.3 mmol/L Normal 21.0-32.0 [facility] Comment on above: Performed By: #### C MP #### [facility] [address] [place] [address] Dr. Tg Fierro Creatinine [Mass/Vol] 0.86 mg/dL Normal 0.55-1.02 [facility] Comment on above: Performed By: #### C MP #### [facility] [address] [place] [address] Dr. Tg Fierro EGFR-AF CYMRO >60 Normal >=60 [facility] Comment on above: Performed By: #### C MP #### [facility] [address] [place] [address] Dr. Tg Fierro EGFR-NON AF CYMRO >60 Normal >=60 [facility] Comment on above: Performed By: #### C MP #### [facility] [address] [place] [address] Dr. Tg Fierro Globulin (S) [Mass/Vol] 2.7 g/dL Normal [facility] Comment on above: Performed By: #### C MP #### [facility] [address] [place] [address] Dr. Tg Fierro Glucose [Mass/Vol] 120 mg/dL Critically high 74-106 [facility] Comment on above: Performed By: #### C MP #### [facility] [address] [place] [address] Dr. Tg Fierro Potassium [Moles/Vol] 4.1 mmol/L Normal 3.5-5.1 [facility] Comment on above: Performed By: #### C MP #### [facility] [address] [address] [address] Tg Fierro Protein [Mass/Vol] 6.6 g/dL Normal 6.4-8.2 [facility] Comment on above: Performed By: #### C MP #### [facility] [address] [address] [address] Tg Fierro Sodium [Moles/Vol] 139 mmol/L Normal 136-145 [facility] Comment on above: Performed By: #### C MP #### [facility] [address] [address] [address] Tg Fierro Urea nitrogen [Mass/Vol] 13.0 mg/dL Normal 7.0-18.0 [facility] Comment on above: Performed By: #### C MP #### [facility] [address] [address] [address] Tg Fierro Urea nitrogen/Creatinine [Mass ratio] 15.1 mg/mg Normal [facility] Comment on above: Performed By: #### C MP #### [facility] [address] [address] [address] Tg Fierro PROTIMEon 09-24-2022 INR Coag (PPP) [Relative time] 1.35 {INR} Normal [facility] Comment on above: Performed By: #### P T #### [facility] [address] [place] [address] Dr. Tg Fierro INR GUIDELINES SEE BELOW Normal [facility] Comment on above: Result Comment: LAURENCE RED INR: 2.0 - 3.0 CONDITIONS NOT LISTED BELOW 2.5 - 3.5 FOR PROSTHETIC HEART VALVE REPLACEMENT 2.5 - 3.5 RECURRENT THROMBOSIS Performed By: #### P T #### [facility] [address] [place] [address] Dr. Tg Fierro PT Coag (PPP) [Time] 14.1 s Critically high 9.0-11.6 [facility] Comment on above: Performed By: #### P T #### [facility] [address] [address] [address] Tg Fierro SED RATE [facility] 2022 SED RATE 8 mm/hr Normal <=30 [facility] Comment on above: Performed By: #### C MP #### [facility] [address] [address] [address] Tg Fierro PROTIMEon 09-09-2022 INR Coag (PPP) [Relative time] 1.23 {INR} Normal [facility] Comment on above: Performed By: #### P T #### [facility] [address] [address] [address] Tg Fierro INR GUIDELINES SEE BELOW Normal [facility] Comment on above: Result Comment: LAURENCE RED INR: 2.0 - 3.0 CONDITIONS NOT LISTED BELOW 2.5 - 3.5 FOR PROSTHETIC HEART VALVE REPLACEMENT 2.5 - 3.5 RECURRENT THROMBOSIS Performed By: #### P T #### [facility] [address] [address] [address] Tg Fierro PT Coag (PPP) [Time] 12.9 s Critically high 9.0-11.6 [facility] Comment on above: Performed By: #### P T #### [facility] [address] [address] [address] Tg Fierro ECHOCARDIO M/2D COMPLETEon 0 09-02-2022 ECHOCARDIO M/2D COMPLETE Patient: WILDA SEN Exam Date: 09/02/2022 : 1945 Gender:F Ordering : DR JAYME PEREZ . Admission #: [id number] Family : Order #: [id number] CLICK HERE TO VIEW EXAM ECHOCARDIOGRAM REPORT [...] Bender M.D. on 09/03/2022 at 17:25 Normal [facility] GLYCOHEMOGLOBIN A1Con 2022 ADA RECOMMENDATION SEE BELOW Normal [facility] Comment on above: Result Comment: ADA RECOMMENDED LIMIT 4.0 - 6.0 ADA THERAPEUTIC TARGET < 7.0 ACTION SUGGESTED > 7.0 Performed By: #### A 1C #### [facility] [address] [address] [address] Tg Fierro Glucose [Mass/Vol] 148 mg/dL Normal [facility] Comment on above: Performed By: #### A 1C #### [facility] [address] [address] [address] Tg Fierro HbA1c (Bld) [Mass fraction] 6.8 % Critically high 4.5-6.2 [facility] Comment on above: Performed By: #### A 1C #### [facility] [address] [address] [address] Tg Fierro CBC AUTO DIFFon 08-05-2022 BASO # 0.1 103/ul Normal 0.0-0.1 [facility] Comment on above: Performed By: #### C BC #### [facility] [address] [place] [address] Dr. Tg Fierro Basophils/100 WBC (Bld) 0.8 % Normal 0.2-2.0 [facility] Comment on above: Performed By: #### C BC #### [facility] [address] [place] [address] Dr. Tg Fierro EO # 0.5 103/ul Normal 0.0-0.7 [facility] Comment on above: Performed By: #### C BC #### [facility] [address] [place] [address] Dr. Tg Fierro Eosinophils/100 WBC (Bld) 7.3 % Critically high 0.9-7.0 [facility] Comment on above: Performed By: #### C BC #### [facility] [address] [place] [address] Dr. Tg Fierro Erythrocyte distribution width (RBC) [Ratio] 13.4 % Normal 11.0-15.0 [facility] Comment on above: Performed By: #### C BC #### [facility] [address] [place] [address] Dr. Tg Fierro Hematocrit (Bld) [Volume fraction] 37.1 % Normal 36.0-48.0 [facility] Comment on above: Performed By: #### C BC #### [facility] [address] [place] [address] Dr. Tg Fierro Hemoglobin (Bld) [Mass/Vol] 12.9 g/dL Normal 12.0-16.0 [facility] Comment on above: Performed By: #### C BC #### [facility] [address] [place] [address] Dr. Tg Fierro IG # 0.03 10e3/ul Normal 0.00-0.03 [facility] Comment on above: Performed By: #### C BC #### [facility] [address] [place] [address] Dr. Tg iFerro IG % 0.5 % Normal 0.0-0.5 [facility] Comment on above: Performed By: #### C BC #### [facility] [address] [place] [address] Dr. Tg Fierro LYMPH # 2.3 103/ul Normal 1.2-3.8 [facility] Comment on above: Performed By: #### C BC #### [facility] [address] [place] [address] Dr. Tg Fierro Lymphocytes/100 WBC (Bld) 34.9 % Normal 20.5-60.0 [facility] Comment on above: Performed By: #### C BC #### [facility] [address] [place] [address] Dr. Tg Fierro MANUAL DIFF REQ NO Normal [facility] Comment on above: Performed By: #### C BC #### [facility] [address] [place] [address] Dr. Tg Fierro MCH (RBC) [Entitic mass] 31.0 pg Normal 26.7-34.0 [facility] Comment on above: Performed By: #### C BC #### [facility] [address] [place] [address] Dr. Tg Fierro MCHC (RBC) [Mass/Vol] 34.8 g/dL Normal 29.9-35.2 [facility] Comment on above: Performed By: #### C BC #### [facility] [address] [place] [address] Dr. Tg Fierro MCV (RBC) [Entitic vol] 89.2 fL Normal 81.0-99.0 [facility] Comment on above: Performed By: #### C BC #### [facility] [address] [place] [address] Dr. Tg Fierro MONO # 0.4 103/ul Normal 0.3-0.8 [facility] Comment on above: Performed By: #### C BC #### [facility] [address] [place] [address] Dr. Tg Fierro Monocytes/100 WBC (Bld) 6.1 % Normal 1.7-12.0 [facility] Comment on above: Performed By: #### C BC #### [facility] [address] [place] [address] Dr. Tg Fierro NEUT # 3.3 103/ul Normal 1.4-6.5 [facility] Comment on above: Performed By: #### C BC #### [facility] [address] [place] [address] Dr. Tg Fierro Neutrophils/100 WBC (Bld) 50.4 % Normal 43.0-75.0 [facility] Comment on above: Performed By: #### C BC #### [facility] [address] [place] [address] Dr. Tg Fierro Platelet mean volume (Bld) [Entitic vol] 8.6 fL Critically low 9.5-13.5 [facility] Comment on above: Performed By: #### C BC #### [facility] [address] [place] [address] Dr. Tg Fierro PLT 336 103/ul Normal 150-450 [facility] Comment on above: Performed By: #### C BC #### [facility] [address] [place] [address] Dr. Tg Fierro RBC 4.16 106/ul Critically low 4.20-5.40 [facility] Comment on above: Performed By: #### C BC #### [facility] [address] [place] [address] Dr. Tg Fierro WBC 6.4 103/ul Normal 4.0-11.0 [facility] Comment on above: Performed By: #### C BC #### [facility] [address] [place] [address] Dr. Tg Fierro PROF 14(COMP METB)on 023 Albumin [Mass/Vol] 3.9 g/dL Normal 3.4-5.0 [facility] Comment on above: Performed By: #### P T #### [facility] [address] [place] [address] Dr. Tg Fierro Albumin/Globulin [Mass ratio] 1.3 {ratio} Normal [facility] Comment on above: Performed By: #### P T #### [facility] [address] [place] [address] Dr. Tg Fierro ALP [Catalytic activity/Vol] 60 U/L Normal 46-116 [facility] Comment on above: Performed By: #### P T #### [facility] [address] [place] [address] Dr. Tg Fierro ALT [Catalytic activity/Vol] 21 U/L Normal 14-59 [facility] Comment on above: Performed By: #### P T #### [facility] [address] [place] [address] Dr. Tg Fierro Anion gap [Moles/Vol] 15.2 mmol/L Normal [facility] Comment on above: Performed By: #### P T #### [facility] [address] [place] [address] Dr. Tg Fierro AST [Catalytic activity/Vol] 14 U/L Critically low 15-37 [facility] Comment on above: Performed By: #### P T #### [facility] [address] [place] [address] Dr. Tg Fierro Bilirubin [Mass/Vol] 0.4 mg/dL Normal 0.2-1.0 [facility] Comment on above: Performed By: #### P T #### [facility] [address] [place] [address] Dr. Tg Fierro Calcium [Mass/Vol] 9.3 mg/dL Normal 8.5-10.1 [facility] Comment on above: Performed By: #### P T #### [facility] [address] [place] [address] Dr. Tg Fierro Chloride [Moles/Vol] 102 mmol/L Normal 98-107 [facility] Comment on above: Performed By: #### P T #### [facility] [address] [place] [address] Dr. Tg Fierro CO2 [Moles/Vol] 26.8 mmol/L Normal 21.0-32.0 [facility] Comment on above: Performed By: #### P T #### [facility] [address] [address] [address] Tg Fierro Creatinine [Mass/Vol] 0.74 mg/dL Normal 0.55-1.02 [facility] Comment on above: Performed By: #### P T #### [facility] [address] [address] [address] Tg Fierro EGFR-AF CYMRO >60 Normal >=60 [facility] Comment on above: Performed By: #### P T #### [facility] [address] [address] [address] Tg Fierro EGFR-NON AF CYMRO >60 Normal >=60 [facility] Comment on above: Performed By: #### P T #### [facility] [address] [address] [address] Tg Fierro Globulin (S) [Mass/Vol] 3.1 g/dL Normal [facility] Comment on above: Performed By: #### P T #### [facility] [address] [address] [address] Tg Fierro Glucose [Mass/Vol] 148 mg/dL Critically high 74-106 [facility] Comment on above: Performed By: #### P T #### [facility] [address] [address] [address] Tg Fierro Potassium [Moles/Vol] 4.0 mmol/L Normal 3.5-5.1 [facility] Comment on above: Performed By: #### P T #### [facility] [address] [address] [address] Tg Fierro Protein [Mass/Vol] 7.0 g/dL Normal 6.4-8.2 [facility] Comment on above: Performed By: #### P T #### [facility] [address] [address] [address] Tg Fierro Sodium [Moles/Vol] 140 mmol/L Normal 136-145 [facility] Comment on above: Performed By: #### P T #### [facility] [address] [place] [address] Dr. Tg Fierro Urea nitrogen [Mass/Vol] 12.0 mg/dL Normal 7.0-18.0 [facility] Comment on above: Performed By: #### P T #### [facility] [address] [place] [address] Dr. Tg Fierro Urea nitrogen/Creatinine [Mass ratio] 16.2 mg/mg Normal [facility] Comment on above: Performed By: #### P T #### [facility] [address] [place] [address] Dr. Tg Fier[facility] mm/hr Normal <=30 [facility] Comment on above: Performed By: #### S EDR #### [facility] [address] [place] [address] Dr. Tg Fierro CBC AUTO DIFFon 04-15-2022 BASO # 0.1 103/ul Normal 0.0-0.1 [facility] Comment on above: Performed By: #### C BC #### [facility] [address] [place] [address] Dr. Tg Fierro Basophils/100 WBC (Bld) 0.6 % Normal 0.2-2.0 [facility] Comment on above: Performed By: #### C BC #### [facility] [address] [place] [address] Dr. Tg Fierro EO # 0.2 103/ul Normal 0.0-0.7 [facility] Comment on above: Performed By: #### C BC #### [facility] [address] [place] [address] Dr. Tg Fierro Eosinophils/100 WBC (Bld) 3.1 % Normal 0.9-7.0 [facility] Comment on above: Performed By: #### C BC #### [facility] [address] [place] [address] Dr. Tg Fierro Erythrocyte distribution width (RBC) [Ratio] 13.6 % Normal 11.0-15.0 [facility] Comment on above: Performed By: #### C BC #### [facility] [address] [place] [address] Dr. Tg Fierro Hematocrit (Bld) [Volume fraction] 42.3 % Normal 36.0-48.0 [facility] Comment on above: Performed By: #### C BC #### [facility] [address] [place] [address] Dr. Tg Fierro Hemoglobin (Bld) [Mass/Vol] 13.2 g/dL Normal 12.0-16.0 [facility] Comment on above: Performed By: #### C BC #### [facility] [address] [place] [address] Dr. Tg Fierro IG # 0.04 10e3/ul Critically high 0.00-0.03 [facility] Comment on above: Performed By: #### C BC #### [facility] [address] [place] [address] Dr. Tg Fierro IG % 0.5 % Normal 0.0-0.5 [facility] Comment on above: Performed By: #### C BC #### [facility] [address] [place] [address] Dr. Tg Fierro LYMPH # 2.5 103/ul Normal 1.2-3.8 [facility] Comment on above: Performed By: #### C BC #### [facility] [address] [place] [address] Dr. Tg Fierro Lymphocytes/100 WBC (Bld) 31.6 % Normal 20.5-60.0 [facility] Comment on above: Performed By: #### C BC #### [facility] [address] [place] [address] Dr. Tg Fierro MANUAL DIFF REQ NO Normal [facility] Comment on above: Performed By: #### C BC #### [facility] [address] [place] [address] Dr. Tg Fierro MCH (RBC) [Entitic mass] 30.3 pg Normal 26.7-34.0 [facility] Comment on above: Performed By: #### C BC #### [facility] [address] [address] [address] Tg Fierro MCHC (RBC) [Mass/Vol] 31.2 g/dL Normal 29.9-35.2 [facility] Comment on above: Performed By: #### C BC #### [facility] [address] [address] [address] Tg Fierro MCV (RBC) [Entitic vol] 97.0 fL Normal 81.0-99.0 [facility] Comment on above: Performed By: #### C BC #### [facility] [address] [place] [address] Dr. Tg Fierro MONO # 0.5 103/ul Normal 0.3-0.8 [facility] Comment on above: Performed By: #### C BC #### [facility] [address] [place] [address] Dr. Tg Fierro Monocytes/100 WBC (Bld) 6.3 % Normal 1.7-12.0 [facility] Comment on above: Performed By: #### C BC #### [facility] [address] [place] [address] Dr. Tg Fierro NEUT # 4.5 103/ul Normal 1.4-6.5 [facility] Comment on above: Performed By: #### C BC #### [facility] [address] [place] [address] Dr. Tg Fierro Neutrophils/100 WBC (Bld) 57.9 % Normal 43.0-75.0 [facility] Comment on above: Performed By: #### C BC #### [facility] [address] [place] [address] Dr. Tg Fierro Platelet mean volume (Bld) [Entitic vol] 8.6 fL Critically low 9.5-13.5 [facility] Comment on above: Performed By: #### C BC #### [facility] [address] [place] [address] Dr. Tg Fierro PLT 295 103/ul Normal 150-450 [facility] Comment on above: Performed By: #### C BC #### [facility] [address] [place] [address] Dr. Tg Fierro RBC 4.36 106/ul Normal 4.20-5.40 [facility] Comment on above: Performed By: #### C BC #### [facility] [address] [place] [address] Dr. Tg Fierro WBC 7.8 103/ul Normal 4.0-11.0 [facility] Comment on above: Performed By: #### C BC #### [facility] [address] [place] [address] Dr. Tg Fierro PROF 14(COMP METB)on 022 Albumin [Mass/Vol] 4.5 g/dL Normal 3.4-5.0 [facility] Comment on above: Performed By: #### C MP #### [facility] [address] [place] [address] Dr. Tg Fierro Albumin/Globulin [Mass ratio] 1.5 {ratio} Normal [facility] Comment on above: Performed By: #### C MP #### [facility] [address] [place] [address] Dr. Tg Fierro ALP [Catalytic activity/Vol] 62 U/L Normal 46-116 [facility] Comment on above: Performed By: #### C MP #### [facility] [address] [place] [address] Dr. Tg Fierro ALT [Catalytic activity/Vol] 25 U/L Normal 14-59 [facility] Comment on above: Performed By: #### C MP #### [facility] [address] [place] [address] Dr. Tg Fierro Anion gap [Moles/Vol] 10.6 mmol/L Normal [facility] Comment on above: Performed By: #### C MP #### [facility] [address] [place] [address] Dr. Tg Fierro AST [Catalytic activity/Vol] 12 U/L Critically low 15-37 [facility] Comment on above: Performed By: #### C MP #### [facility] [address] [place] [address] Dr. Tg Fierro Bilirubin [Mass/Vol] 0.5 mg/dL Normal 0.2-1.0 [facility] Comment on above: Performed By: #### C MP #### [facility] [address] [address] [address] Tg Fierro Calcium [Mass/Vol] 9.8 mg/dL Normal 8.5-10.1 [facility] Comment on above: Performed By: #### C MP #### [facility] [address] [address] [address] Tg Fierro Chloride [Moles/Vol] 102 mmol/L Normal 98-107 [facility] Comment on above: Performed By: #### C MP #### [facility] [address] [address] [address] Tg Fierro CO2 [Moles/Vol] 31.8 mmol/L Normal 21.0-32.0 [facility] Comment on above: Performed By: #### C MP #### [facility] [address] [address] [address] Tg Fierro Creatinine [Mass/Vol] 0.88 mg/dL Normal 0.55-1.02 [facility] Comment on above: Performed By: #### C MP #### [facility] [address] [address] [address] Tg Fierro EGFR-AF CYMRO >60 Normal >=60 [facility] Comment on above: Performed By: #### C MP #### [facility] [address] [address] [address] Tg Fierro EGFR-NON AF CYMRO >60 Normal >=60 [facility] Comment on above: Performed By: #### C MP #### [facility] [address] [address] [address] Tg Fierro Globulin (S) [Mass/Vol] 3.1 g/dL Normal [facility] Comment on above: Performed By: #### C MP #### [facility] [address] [address] [address] Tg Fierro Glucose [Mass/Vol] 187 mg/dL Critically high 74-106 [facility] Comment on above: Performed By: #### C MP #### [facility] [address] [address] [address] Tg Fierro Potassium [Moles/Vol] 4.4 mmol/L Normal 3.5-5.1 [facility] Comment on above: Performed By: #### C MP #### [facility] [address] [address] [address] Tg Fierro Protein [Mass/Vol] 7.6 g/dL Normal 6.4-8.2 [facility] Comment on above: Performed By: #### C MP #### [facility] [address] [address] [address] Tg Fierro Sodium [Moles/Vol] 140 mmol/L Normal 136-145 [facility] Comment on above: Performed By: #### C MP #### [facility] [address] [address] [address] Tg Fierro Urea nitrogen [Mass/Vol] 14.0 mg/dL Normal 7.0-18.0 [facility] Comment on above: Performed By: #### C MP #### [facility] [address] [place] [address] Dr. Tg Fierro Urea nitrogen/Creatinine [Mass ratio] 15.9 mg/mg Normal [facility] Comment on above: Performed By: #### C MP #### [facility] [address] [place] [address] Dr. Tg Fierro [facility] 5 mm/hr Normal <=30 [facility] Comment on above: Performed By: #### S EDR #### [facility] [address] [place] [address] Dr. Tg Fierro CBC AUTO DIFFon 02-07-2022 BASO # 0.0 103/ul Normal 0.0-0.1 [facility] Comment on above: Performed By: #### P T #### [facility] [address] [place] [address] Dr. Tg Fierro Basophils/100 WBC (Bld) 0.6 % Normal 0.2-2.0 [facility] Comment on above: Performed By: #### P T #### [facility] [address] [place] [address] Dr. Tg Fierro EO # 0.4 103/ul Normal 0.0-0.7 [facility] Comment on above: Performed By: #### P T #### [facility] [address] [place] [address] Dr. Tg Fierro Eosinophils/100 WBC (Bld) 5.4 % Normal 0.9-7.0 [facility] Comment on above: Performed By: #### P T #### [facility] [address] [place] [address] Dr. Tg Fierro Erythrocyte distribution width (RBC) [Ratio] 13.5 % Normal 11.0-15.0 [facility] Comment on above: Performed By: #### P T #### [facility] [address] [place] [address] Dr. Tg Fierro Hematocrit (Bld) [Volume fraction] 39.4 % Normal 36.0-48.0 [facility] Comment on above: Performed By: #### P T #### [facility] [address] [place] [address] Dr. Tg Fierro Hemoglobin (Bld) [Mass/Vol] 12.8 g/dL Normal 12.0-16.0 [facility] Comment on above: Performed By: #### P T #### [facility] [address] [place] [address] Dr. Tg Fierro IG # 0.02 10e3/ul Normal 0.00-0.03 [facility] Comment on above: Performed By: #### P T #### [facility] [address] [place] [address] Dr. Tg Fierro IG % 0.3 % Normal 0.0-0.5 [facility] Comment on above: Performed By: #### P T #### [facility] [address] [place] [address] Dr. Tg Fierro LYMPH # 2.4 103/ul Normal 1.2-3.8 [facility] Comment on above: Performed By: #### P T #### [facility] [address] [place] [address] Dr. Tg Fierro Lymphocytes/100 WBC (Bld) 36.2 % Normal 20.5-60.0 [facility] Comment on above: Performed By: #### P T #### [facility] [address] [place] [address] Dr. Tg Fierro MANUAL DIFF REQ NO Normal [facility] Comment on above: Performed By: #### P T #### [facility] [address] [place] [address] Dr. Tg Fierro MCH (RBC) [Entitic mass] 31.0 pg Normal 26.7-34.0 [facility] Comment on above: Performed By: #### P T #### [facility] [address] [place] [address] Dr. Tg Fierro MCHC (RBC) [Mass/Vol] 32.5 g/dL Normal 29.9-35.2 [facility] Comment on above: Performed By: #### P T #### [facility] [address] [place] [address] Dr. Tg Fierro MCV (RBC) [Entitic vol] 95.4 fL Normal 81.0-99.0 [facility] Comment on above: Performed By: #### P T #### [facility] [address] [place] [address] Dr. Tg Fierro MONO # 0.5 103/ul Normal 0.3-0.8 [facility] Comment on above: Performed By: #### P T #### [facility] [address] [place] [address] Dr. Tg Fierro Monocytes/100 WBC (Bld) 8.0 % Normal 1.7-12.0 [facility] Comment on above: Performed By: #### P T #### [facility] [address] [place] [address] Dr. Tg Fierro NEUT # 3.3 103/ul Normal 1.4-6.5 [facility] Comment on above: Performed By: #### P T #### [facility] [address] [address] [address] Tg Fierro Neutrophils/100 WBC (Bld) 49.5 % Normal 43.0-75.0 [facility] Comment on above: Performed By: #### P T #### [facility] [address] [address] [address] Tg Fierro Platelet mean volume (Bld) [Entitic vol] 8.7 fL Critically low 9.5-13.5 [facility] Comment on above: Performed By: #### P T #### [facility] [address] [address] [address] Tg Fierro PLT 276 103/ul Normal 150-450 [facility] Comment on above: Performed By: #### P T #### [facility] [address] [place] [address] Dr. Tg Fierro RBC 4.13 106/ul Critically low 4.20-5.40 [facility] Comment on above: Performed By: #### P T #### [facility] [address] [address] [address] Tg Fierro WBC 6.7 103/ul Normal 4.0-11.0 [facility] Comment on above: Performed By: #### P T #### [facility] [address] [address] [address] Tg Fierro GLYCOHEMOGLOBIN A1Con 2021 ADA RECOMMENDATION SEE BELOW Normal [facility] Comment on above: Result Comment: ADA RECOMMENDED LIMIT 4.0 - 6.0 ADA THERAPEUTIC TARGET < 7.0 ACTION SUGGESTED > 7.0 Performed By: #### A 1C #### [facility] [address] [address] [address] Tg Fierro Glucose [Mass/Vol] 151 mg/dL Normal [facility] Comment on above: Performed By: #### A 1C #### [facility] [address] [address] [address] Tg Fierro HbA1c (Bld) [Mass fraction] 6.9 % Critically high 4.5-6.2 [facility] Comment on above: Performed By: #### A 1C #### [facility] [address] [place] [address] Dr. Tg Fierro PROF 14(COMP METB)on 022 Albumin [Mass/Vol] 3.8 g/dL Normal 3.4-5.0 [facility] Comment on above: Performed By: #### P T #### [facility] [address] [place] [address] Dr. Tg Fierro Albumin/Globulin [Mass ratio] 1.3 {ratio} Normal [facility] Comment on above: Performed By: #### P T #### [facility] [address] [place] [address] Dr. Tg Fierro ALP [Catalytic activity/Vol] 43 U/L Critically low 46-116 [facility] Comment on above: Performed By: #### P T #### [facility] [address] [place] [address] Dr. Tg Fierro ALT [Catalytic activity/Vol] 19 U/L Normal 14-59 [facility] Comment on above: Performed By: #### P T #### [facility] [address] [place] [address] Dr. Tg Fierro Anion gap [Moles/Vol] 13.7 mmol/L Normal [facility] Comment on above: Performed By: #### P T #### [facility] [address] [place] [address] Dr. Tg Fierro AST [Catalytic activity/Vol] 11 U/L Critically low 15-37 [facility] Comment on above: Performed By: #### P T #### [facility] [address] [place] [address] Dr. Tg Fierro Bilirubin [Mass/Vol] 0.4 mg/dL Normal 0.2-1.0 [facility] Comment on above: Performed By: #### P T #### [facility] [address] [place] [address] Dr. Tg Fierro Calcium [Mass/Vol] 9.1 mg/dL Normal 8.5-10.1 [facility] Comment on above: Performed By: #### P T #### [facility] [address] [address] [address] Tg Fierro Chloride [Moles/Vol] 104 mmol/L Normal 98-107 [facility] Comment on above: Performed By: #### P T #### [facility] [address] [address] [address] Tg Fierro CO2 [Moles/Vol] 28.5 mmol/L Normal 21.0-32.0 [facility] Comment on above: Performed By: #### P T #### [facility] [address] [address] [address] Tg Fierro Creatinine [Mass/Vol] 0.77 mg/dL Normal 0.55-1.02 [facility] Comment on above: Performed By: #### P T #### [facility] [address] [place] [address] Dr. Tg Fierro EGFR-AF CYMRO >60 Normal >=60 [facility] Comment on above: Performed By: #### P T #### [facility] [address] [place] [address] Dr. Tg Fierro EGFR-NON AF CYMRO >60 Normal >=60 [facility] Comment on above: Performed By: #### P T #### [facility] [address] [place] [address] Dr. Tg Fierro Globulin (S) [Mass/Vol] 3.0 g/dL Normal [facility] Comment on above: Performed By: #### P T #### [facility] [address] [place] [address] Dr. Tg Fierro Glucose [Mass/Vol] 124 mg/dL Critically high 74-106 [facility] Comment on above: Performed By: #### P T #### [facility] [address] [place] [address] Dr. Tg Fierro Potassium [Moles/Vol] 4.2 mmol/L Normal 3.5-5.1 [facility] Comment on above: Performed By: #### P T #### [facility] [address] [address] [address] Tg Fierro Protein [Mass/Vol] 6.8 g/dL Normal 6.4-8.2 [facility] Comment on above: Performed By: #### P T #### [facility] [address] [address] [address] Tg Fierro Sodium [Moles/Vol] 142 mmol/L Normal 136-145 [facility] Comment on above: Performed By: #### P T #### [facility] [address] [address] [address] Tg Fierro Urea nitrogen [Mass/Vol] 12.0 mg/dL Normal 7.0-18.0 [facility] Comment on above: Performed By: #### P T #### [facility] [address] [address] [address] Tg Fierro Urea nitrogen/Creatinine [Mass ratio] 15.6 mg/mg Normal [facility] Comment on above: Performed By: #### P T #### [facility] [address] [address] [address] Tg Fierro SED RATE [facility] 2021 SED RATE 8 mm/hr Normal <=30 [facility] Comment on above: Performed By: #### C MP #### [facility] [address] [address] [address] Tg Fierro COVID Quick Testingon 2020 Result Positive [facility] Other Vital Signs Date Time Vital Sign Value Performing Clinician Facility 07-12-2024 11:03-0500 Diastolic blood pressure 66 mm[Hg] Williams SHEPHERD [facility] 07-12-2024 11:03-0500 Heart rate 77 /min Williams SHEPHERD [facility] 07-12-2024 11:03-0500 Systolic blood pressure 131 mm[Hg] Williams SHEPHERD [facility] 04-15-2024 14:16-0400 Body height 160 cm Jayme Perez MD Work Phone: [facility] 04-15-2024 14:16-0400 Body mass index (BMI) [Ratio] 21.79 kg/m2 Jayme Perez MD Work Phone: [facility] 04-15-2024 14:16-0400 Body weight 55.79 kg Jayme Perez MD Work Phone: [facility] 04-15-2024 14:16-0400 Diastolic blood pressure 70 mm[Hg] Jayme Perez MD Work Phone: [facility] 04-15-2024 14:16-0400 Heart rate 87 /min Jayme Perez MD Work Phone: [facility] 04-15-2024 14:16-0400 SaO2% (BldA) [Mass fraction] 98 % Jayme Perez MD Work Phone: [facility] 04-15-2024 14:16-0400 Systolic blood pressure 120 mm[Hg] Jayme Perez MD Work Phone: [facility] 10-14-2023 09:09-0400 Body temperature 98.6 [degF] Williamschilo SHEPHERD [facility] 10-14-2023 09:09-0400 Diastolic blood pressure 61 mm[Hg] Williams COOK [facility] 10-14-2023 09:09-0400 Heart rate 80 /min Williams Barburrito [facility] 10-14-2023 09:09-0400 Respiratory rate 16 /min Williams COOK [facility] 10-14-2023 09:09-0400 Systolic blood pressure 115 mm[Hg] Williams COOK [facility] 08-13-2023 10:47-0500 Blood Pressure Location Renato SANTACRUZ [facility] 08-13-2023 10:47-0500 Diastolic blood pressure 62 mm[Hg] Renato SANTACRUZ [facility] 08-13-2023 10:47-0500 Heart rate 82 /min Renatopower SANTACRUZ [facility] 08-13-2023 10:47-0500 Respiratory rate 16 /min Renato SANTACRUZ [facility] 08-13-2023 10:47-0500 Systolic blood pressure 105 mm[Hg] Renato SANTACRUZ [facility] 08-07-2023 09:48-0500 Body height 160 cm Jayme Perez MD Work Phone: [facility] 08-07-2023 09:48-0500 Body mass index (BMI) [Ratio] 24.45 kg/m2 Jayme Perez MD Work Phone: [facility] 08-07-2023 09:48-0500 Body weight 62.6 kg Jayme Perez MD Work Phone: [facility] 08-07-2023 09:48-0500 Heart rate 57 /min Jayme Perez MD Work Phone: [facility] 08-07-2023 09:48-0500 SaO2% (BldA) [Mass fraction] 98 % Jayme Perez MD Work Phone: [facility] 07-25-2023 09:20-0500 Body height 160.02 cm Lou Glover Other [facility] Other 07-25-2023 09:20-0500 Body mass index (BMI) [Ratio] 23.91 kg/m2 Lou Glover Other [facility] Other 07-25-2023 09:20-0500 Body temperature 97.7 [degF] Lou Glover Other [facility] Other 07-25-2023 09:20-0500 Body weight 61.24 kg Lou Glover Other [facility] Other 07-25-2023 09:20-0500 Diastolic blood pressure 74 mm[Hg] Lou Glover Other [facility] Other 07-25-2023 09:20-0500 Respiratory rate 18 /min Lou Glover Other [facility] Other 07-25-2023 09:20-0500 SaO2% (BldA) [Mass fraction] 96 % Lou Glover Other [facility] Other 07-25-2023 09:20-0500 Systolic blood pressure 120 mm[Hg] Lou Glover Other [facility] Other 03-26-2023 13:15-0400 Body height 160.02 cm MD Jayme Perez Work Phone: [facility] 03-26-2023 13:15-0400 Body temperature 98.2 [degF] MD Jayme Perez Work Phone: [facility] 03-26-2023 13:15-0400 Body weight 66 kg MD Jayme Perez Work Phone: [facility] 03-26-2023 13:15-0400 Diastolic blood pressure 71 mm[Hg] MD Jayme Perez Work Phone: [facility] 03-26-2023 13:15-0400 Heart rate 87 /min MD Jayme Perez Work Phone: [facility] 03-26-2023 13:15-0400 Respiratory rate 16 /min MD Jayme Perez Work Phone: [facility] 03-26-2023 13:15-0400 SaO2% (BldA) [Mass fraction] 97 % MD Jayme Perez Work Phone: [facility] 03-26-2023 13:15-0400 Systolic blood pressure 117 mm[Hg] MD Jayme Perez Work Phone: [facility] 05-21-2021 13:15-0500 Body height 160.02 cm Astrid Baker Other [facility] Other 05-21-2021 13:15-0500 Body mass index (BMI) [Ratio] 23.91 kg/m2 Astrid Olivia Other [facility] Other 05-21-2021 13:15-0500 Body temperature 97.3 [degF] Astrid Olivia Other [facility] Other 05-21-2021 13:15-0500 Body weight 61.24 kg Astrid Olivia Other [facility] Other 05-21-2021 13:15-0500 SaO2% (BldA) [Mass fraction] 94 % Astrid Baker Other [facility] Other Encounters Encounter Date Encounter Type Care Provider Facility Start: 08-04-2024 End: 08-04-2024 Bamboo flowsheet Felicia Farmer DO Work Phone: [facility] Start: 08-04-2024 End: 08-04-2024 Bamboo flowsheet Felicia Farmer DO Work Phone: [facility] Start: 08-04-2024 End: 08-04-2024 ambulatory FELICIA FARMER Not Available Start: 07-19-2024 End: 07-19-2024 Clinisync Result Encounter Jayme Perez MD Work Phone: [facility] Unsolicited Start: 07-19-2024 End: 07-19-2024 Clinisync Result Encounter Jayme Perez MD Work Phone: [facility] Unsolicited Start: 07-12-2024 End: 07-12-2024 ambulatory Williams SHEPHERD Facility:[facility] Start: 07-12-2024 End: 07-12-2024 Patient encounter procedure Williams Rubi SHEPHERD [facility] Start: 07-01-2024 End: 07-01-2024 Clinisync Result Encounter [...] Paroxysmal atrial fi brillation (CMS/HCC) (Primary Dx); prison current use of anticoagulant; Type 2 diabetes [...] encounter procedure MD Jayme Perez Work Phone: [facility] [address] Work Phone: Start: 03-31-2024 End: 03-31-2024 ambulatory MD Jayme Perez Work Phone: [facility] Work Phone: Start: 03-29-2024 End: 03-29-2024 Clinisync [...] without long-term current use of insulin (HCC) ([facility]) Start: 03-17-2024 End: 03-17-2024 Clinisync Result Encounter Jayme Perez MD Work Phone: [facility] Unsolicited Start: 03-17-2024 End: 03-17-2024 Clinisync Result Encounter Jayme Perez MD Work Phone: [facility] Unsolicited Start: 12-31-2023 End: 12-31-2023 ambulatory FELICIA FARMER Not Available Start: 10-14-2023 End: 10-14-2023 ambulatory Williams SHEPHERD Facility:[facility] Start: 10-14-2023 End: 10-14-2023 Patient encounter procedure Williams SHEPHERD [facility] Start: 09-01-2023 End: 09-01-2023 ambulatory FELICIA FARMER Not Available Start: 08-20-2023 Clinisync Result Encounter Generic External Data Provider [facility] Unsolicited Start: 08-20-2023 Clinisync Result Encounter Generic External Data Provider [facility] Unsolicited Start: 08-13-2023 End: 08-14-2023 ambulatory Renato SANTACRUZ Facility:[id number] Start: 08-13-2023 End: 08-13-2023 Patient encounter procedure Renato SANTACRUZ [facility] Start: 08-07-2023 End: 08-07-2023 Office [...] (CMS/HCC); Microalbuminuria; Former smoker; 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, adult; 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 Start: 04-07-2023 End: 04-07-2023 ambulatory MD Jayme Perez Work Phone: [facility] Work Phone: Start: 04-07-2023 End: 04-07-2023 Departed Referred MD Jayme Perez Work Phone: [facility] Start: 03-26-2023 End: 03-26-2023 Patient encounter procedure MD Jayme Perez Work Phone: [facility] Work Phone: Start: 03-20-2023 End: 03-20-2023 Lab Drop off Williams SHEPHERD [facility] Start: 03-20-2023 End: 03-20-2023 Patient encounter procedure Williams SHEPHERD [facility] Start: 11-11-2022 End: 12-11-[address] [...] 05-21-2021 End: 05-21-2021 ambulatory Astrid Baker Other [facility] Other Start: 05-21-2021 Office outpatient vi sit 15 minutes Astrid Baker [facility] Procedures Date Procedure Procedure Detail Performing Clinician Start: 08-04-2024 Computerized ophthal omar imaging optic nerve Felicia Farmer DO Work Phone: Start: 08-04-2024 End: 08-04-2024 Oph medical xm&eval comprhnsv estab pt 1/> Glaucoma suspect of both eyes Felicia Farmer DO Work Phone: Comment on above: Glaucoma suspect of both eyes (Primary Dx); Type 2 diabetes mellitus with stage 3a chronic kidney disease, without long-term current use of insulin (HCC) (CMS/HCC); Dry eyes; Blepharitis of upper and lower eyelids of both eyes, unspecified type Start: 07-19-2024 [facility] PROTHROMBIN T GERALD INR W/O COUM Jayme Perez MD Work Phone: Start: 07-01-2024 [facility] PROTHROMBIN T GERALD INR [...] stent into ureter Williams SHEPHERD Abdominal hysterectomy Radhajarad resendiz [employer] Appendectomy Renato SANTACRUZ Extraction of cataract Radhajarad resendiz [employer] Partial lobectomy of lung Pa gamal SANTACRUZ Tonsillectomy Renato [employer] Plan of Treatment Date Care Activity Detail Author Start: 08-04-2026 Glaucoma screening Diabetes: R etinopathy Screening [facility] Start: 12-30-2025 Glaucoma screening Diabetes: R etinopathy Screening [facility] Start: 05-19-2025 Glaucoma screening Diabetes: R etinopathy Screening [facility] Start: 10-14-2024 End: 04-15-2025 T3, reverse T3, reverse Lab Routine Chronic fatigue Expected: 10/14/2024 (Approximate), Expires: 04/15/2025 [facility] Comment on above: Expected: 10/14/2024 (Approximate), Expires: 04/15/2025 Start: 10-14-2024 End: 04-15-2025 Thyrotropin [Units/volume] in Serum or Plasma TSH Lab Routine Chronic fatigue Expected: 10/14/2024 (Approximate), Expires: 04/15/2025 [facility] Comment on above: Expected: 10/14/2024 (Approximate), Expires: 04/15/2025 Start: 10-14-2024 End: 04-15-2025 Thyroxine (T4) free [Mass/volume] in Serum or Plasma T4, free Lab Routine Chronic fatigue Expected: 10/14/2024 (Approximate), Expires: 04/15/2025 [facility] Comment on above: Expected: 10/14/2024 (Approximate), Expires: 04/15/2025 Start: 10-14-2024 End: 04-15-2025 Triiodothyronine (T3) [Mass/volume] in Serum or Plasma T3 Lab Routine Chronic fatigue Expected: 10/14/2024 (Approximate), Expires: 04/15/2025 [facility] Work Phone: Comment on above: Expected: 10/14/2024 (Approximate), Expires: 04/15/2025 Start: 10-14-2024 End: 04-15-2025 Triiodothyronine (T3) Free [Mass/volume] in Serum or Plasma T3, free Lab Routine Chronic fatigue Expected: 10/14/2024 (Approximate), Expires: 04/15/2025 [facility] Comment on above: Expected: 10/14/2024 (Approximate), Expires: 04/15/2025 Start: 08-04-2024 End: 08-04-2024 [facility] Comment on above: Arrived Start: 05-22-2024 Medicare Annual Well ness (AWV) Medicare Annual Wellness (AWV) [facility] Start: 04-15-2024 End: 04-15-2024 Patient encounter procedure 04/15/2024 2:30 PM EDT Office Visit [facility] [address] [place] [id number] Jayme Perez MD [address] [place] [address] (Fax) [facility] Start: 03-14-2024 Influenza vaccination Influenza Vacc ine (#1) [facility] Start: 10-26-2023 Urine screening for protein Diabetes: Urine Protein Screening [facility] Start: 09-01-2023 End: 09-01-2023 Patient encounter procedure 09/01/2023 10:30 AM EST Office Visit [facility] [address] [place] [address] Felicia Farmer DO [address] [place] [address] [facility] Start: 05-06-2023 Hemoglobin A1c measurement Sharmin betes: Hemoglobin A1C [facility] Start: 04-07-2023 Abdomen endoscopy OR Cysto/Retro/Stent/Ston e/Holmium Laser (Right) [facility] Start: 03-14-2023 Influenza vaccination Influenza Vacc ine (#1) [facility] Start: 09-12-2020 Urine screening for protein Diabetes: Urine Protein Screening [facility] Start: 1951 Pneumococcal Vaccine : 65+ [...] unspecified formulation Renato SANTACRUZ [facility] NEGATED: Highlighted row has not occurred!08-13-2023 SARS-CoV-2 mRNA (tozinameran 5y-11y) vaccine Renato SANTACRUZ [facility] NEGATED: Highlighted row has not occurred!09-21-2019 influenza virus vaccine, live, attenuated, for intranasal use [employer] NEGATED: Highlighted row has not occurred!08-20-2019 influenza virus vaccine, live, attenuated, for intranasal use [employer] [facility] Payers Date Payer Category Payer Self-pay [id number] 2023 Private Health Insurance 1.2 .[id number] .2.7.3.180294.315 2022 Unknown CYMRO CONTINE NTAL INS CO CYMRO CONTINENTAL INS CO [id number] 2022-Present [address] [address] [place] [address] 1.2.840.422469.1.13.693 .2.7.3.131203.315 2022 Medicare [id number] 2.16.840.1.471792.19 2002 Medicare 1.2.840.151324. 1.13.693 .2.7.3.723885.315 1959 Medicare [id number] 2.16.840.1.851916.19 1959 Unknown [id number] 1946 Unknown [id number] 2.16.840.1.866120.3.579 .2.593 1946 Unknown [id number] 2.16.840.1.312639.3.579 .2.593 1946 Unknown [id number] 2.16.840.1.299129.3.579 .2.593 1946 Unknown [id number] 2.16.840.1.205057.3.579 .2.593 1946 Unknown [id number] 2.16.840.1.729981.3.579 .2.593 1946 Unknown [id number] 2.16.840.1.296901.3.579 .2.593 1946 Unknown [id number] 2.16.840.1.414163.3.579 .2.593 1946 Unknown [id number] 2.16.840.1.961309.3.579 .2.593 1946 Unknown [id number] 2.16.840.1.982520.3.579 .2.593 1946 Unknown [id number] 2.16.840.1.969367.3.579 .2.593 1946 Unknown [id number] 2.16.840.1.971793.3.579 .2.593 1946 Unknown [id number] 2.16.840.1.742159.3.579 .2.593 1946 Unknown [id number] 2.16.840.1.082376.3.579 .2.593 1946 Unknown [id number] 2.16.840.1.355664.3.579 .2.727 1946 Unknown [id number] 2.16.840.1.075263.3.579 .2.727 1946 Unknown [id number] 2.16.840.1.060778.3.579 .2.727 1946 Unknown [id number] 2.16.840.1.570143.3.579 .2.727 1946 Unknown [id number] 2.16.840.1.791886.3.579 .2.1259 1946 Unknown [id number] 2.16.840.1.281341.3.579 .2.1259 1946 Unknown [id number] 2.16.840.1.982092.3.579 .2.1259 1946 Unknown [id number] 2.16.840.1.276391.3.579 .2.1259 1946 Unknown [id number] 2.16.840.1.777216.3.579 .2.1259 Unknown [id number] 2.16.840.1.919949.3.579 .2.531 Social History Date Type Detail Facility Sex Assigned At [facility] Other Start: 02-03-2023 End: 04-15-2024 Tobacco smoking status Ex-smoker (finding) [facility] Tobacco smoking status Never [facility] Start: 12-11-2022 End: 04-08-2024 Sex Assigned At Female [facility] Start: 1945 Sex Assigned At Female [facility] End: 07-14-1986 History of tobacco use Current smoker [facility] End: 07-14-1986 History of tobacco use Cigarette Smoker [facility] Start: 08-07-2023 End: 04-15-2024 Tobacco use and exposure Smokeless tobacco non-user [facility] Start: 08-07-2023 End: 08-04-2024 Alcohol intake Ex-drinker (finding) [facility] Start: [...] Gender identity Identifies as female gender (finding) [facility] Do you feel stress - tense, restless, nervous, or anxious, or unable to sleep at night because your mind is troubled all the time - these days [OSQ] Not at all [facility] Functional Status Date Assessment Result Facility 07-12-2024 Functional Status N/A [facility] 10-14-2023 Functional Status N/A [facility] 08-13-2023 Functional Status N/A [facility] Clinical Notes 02-21-2022 to 08-04-2024 Felicia Farmer DO - 08/04/2024 1:00 PM EST Note Date & Type Note Facility 08-04-2024 History of Presen t illness Narrative Images from the original note were not included. Assessment/Plan Diagnoses and all orders for this visit: Type 2 diabetes mellitus without complication, without long-term current use of insulin ([facility]) - Diabetes Mellitus without sign of diabetic retinopathy on dilated retinal examination today OU: Discussed the pathophysiology of diabetes and its effect on the eye. Stressed the importance of strong glucose control. Advised of importance of at least yearly dilated examinations, but to contact us immediately for any problems or concerns. Glaucoma suspect of both eyes - Glaucoma suspect OU - Continue observation, following the findings of IOP, C/D ratio, HVF and OCT ONH. Encouraged patient compliance. Dry eyes - Dry Eyes OU -- Environmental changes to minimize dryness and exposure and the use of artificial tears were recommended. Blepharitis of upper and lower eyelids of both eyes, unspecified type - Blepharitis, posterior type OU - The patient exhibits inspissated meibomian glands. Warm compresses, lid massage and lid scrubs were recommended. documented in this encounter [facility] 08-04-2024 Evaluation note Diagnosis Glaucoma suspect of both eyes- Primary Unspecified preglaucoma Type 2 diabetes mellitus with stage 3a chronic kidney disease, without long-term current use of insulin (HCC) ([facility]/HCC) Dry eyes Unspecified tear film insufficiency Blepharitis of upper and lower eyelids of both eyes, unspecified type documented [facility] this encounter [facility] [id number] Hospital Discharge instructions Patient Education 07/12/2024 11:44:44 Dietary Guidelines to Help Prevent Kidney Stones [...] about 300 mg of calcium at each meal.Foods that contain 200 500 mg of calcium a serving include: ?8 oz (237 mL) of milk, ecsjtcf-spoagqovlnbf-jogwt milk, and calcium- fortifiedfruit juice. Calcium-fortified means that calcium has been [...] the table and allow each person to addtheir own salt to taste. Use vegetable protein, such as beans, textured vegetable protein (TVP), or tofu, instead of meat inpasta, casseroles, and soups. Meal planning Eat less salt, if told by your dietitian. To do this: ?Avoid eating processed or pre-made food. ?Avoid eating fast food. Eat less animal protein, including cheese, meat, poultry, or fish, if told by your dietitian. To dothis: ?Limit the number of times you have meat, poultry, fish, or cheese each week. Eat a diet free of meat at least 2 days a week. ?Eat only one serving each day of meat, poultry, fish, or seafood. ?When you prepare animal proteins, cut pieces into small portion sizes. For most meat and fish, oneserving is about the size of the palm [...] ?Spinach (cooked), rhubarb, beets, sweet potatoes, and Monegasque chard. ?Peanuts. ?Potato chips, greenlandic fries, and baked potatoes with skin on. ?Nuts and nut products. ?Chocolate. If you regularly take a diuretic medicine, make sure to eat at least 1 or 2 servings of fruits or vegetables that are high in potassium each day. These include: ?Avocado. ?Banana. ?Goodview, prune, carrot, or tomato juice. ?Baked potato. [...] magnesium, fish oil, or vitamin B6. Take pgui-nki-mnafjlp and prescription medicines only as told by [...] Casseroles. Pizza. Lasagna. Frozen meals. Potato chips. Tamazight fries. The items listed above may not be a complete list of foods and beverages you should limit. Contact a dietitian for more information. What foods should I avoid? Talk to your dietitian about specific foods you should avoid based on the type of kidney stones youhave and your overall health. Fruits Grapefruit. The item listed above may not be a complete list of foods and beverages you should avoid. Contact adietitian for more information. Summary Kidney stones are [...] provider. Document Revised: 10/10/2022 Document Reviewed: 10/10/2022 ElseTopVisible Patient Education 2023 Offerboard. Follow Up Care 02/03/2023 12:01:32 With:CORA AGUIAR, Williams Venegas, URL Address: [facility] [place] [id number]- When: Unknown [facility] [phone] NotePatient Education Nephrology Dietary Guidelines to Help Prevent [...] for following this plan? Reading food labels ??? Choose foods with no salt added or low-salt labels. Limit your salt (sodium) intake to lessthan 1,500 mg a day. ??? Choose foods with calcium for each meal and snack. Try to eat about 300 mg of calcium at each meal. Foods that contain 200?500 mg of calcium a serving include: ? 8 oz (237 mL) of milk, gimauew-ludavnsmjtug-tpzbf milk, and calcium- fortifiedfruit juice. Calcium-fortified means that calcium has been [...] much calcium is recommended for you. Shopping ??? Buy plenty of fresh fruits and vegetables. Most people do not need to avoid fruits and vegetables, even if these foods contain nutrients that may contribute to kidney stones. ??? When shopping for convenience foods, choose: ? Whole pieces of fruit. ? Pre-made salads with dressing on the side. ? Low-fat fruit and yogurt smoothies. ??? Avoid buying frozen meals or prepared deli foods. These can be high in sodium. ??? Look for foods with live cultures, such as yogurt and kefir. ??? Choose high-fiber grains, such as whole-wheat breads, oat bran, and wheat cereals. Cooking ??? Do not add salt to food when cooking. Place a salt shaker on the table and allow each person toadd their own salt to taste. ??? Use vegetable protein, such as beans, textured vegetable protein (TVP), or tofu, instead of meat in pasta, casseroles, and soups. Meal planning ??? Eat less salt, if told by your dietitian. To do this: ? Avoid eating processed or pre-made food. ? Avoid eating fast food. ??? Eat less animal protein, including cheese, meat, [...] size of the palm of your hand. ??? Eat at least five servings of fresh fruits and vegetables each day. To do this: ? Keep fruits and vegetables on hand for snacks. ? Eat one piece of fruit or a handful of berries with breakfast. ? Have a salad and fruit at lunch. ? Have two kinds of vegetables at dinner. ??? You may be told to limit foods that are high in a substance called oxalate. These include: ? Spinach (cooked), rhubarb, beets, sweet potatoes, and Monegasque chard. ? Peanuts. ? Potato chips, greenlandic fries, and baked potatoes with skin on. ? Nuts and nut products. ? Chocolate. ??? If you regularly take a diuretic medicine, make sure to eat at least 1 or 2 servings of fruits or vegetables that are high in potassium each day. These include: ? Avocado. ? Banana. ? Goodview, prune, carrot, or tomato juice. ? Baked potato. ? Cabbage. ? Beans and split peas. Lifestyle ??? Drink enough fluid to keep your urine pale yellow. This is the most important thing you can do.Spread your fluid intake throughout the day. ??? If you drink alcohol: ? Limit how [...] oz glass of hard liquor (44 mL). ??? Lose weight if told by your health care provider. Work with your dietitian to find an eating plan and weight loss strategies that work best for you. General information ??? Talk to your health care provider and [...] as magnesium, fish oil, or vitamin B6. ??? Take lajk-aog-tkpamaa and prescription medicines only as told by your health (more content not included)...[facility]12-19-2024 Telephone encounter Note* Telephone Encounter - Jayme Perez MD - 07/01/2024 5:50 PM EST I called and spoke with her. No [...] her to recheck her INR after the holiday. [facility] [id number] Miscellaneous Notes* Telephone Encounter - Jayme Perez MD - 07/01/2024 5:50 PM EST I called and spoke with her. No [...] her to recheck her INR after the holiday. * Telephone Encounter - Angeles Bonilla - 06/17/2024 9:11 AM EST Left voicemail to continue current dose and recheck in about 2 weeks * Telephone Encounter - Jayme Perez MD - 06/17/2024 7:12 AM EST She is right on the border of the elevated. I would just continue the same dose and get rechecked it again in about 2 weeks. documented in this encounterMiss[facility] [id number] Telephone encounter Note* Telephone Encounter - Angeles Bonilla - 06/17/2024 9:11 AM EST Left voicemail to continue current dose and recheck in about 2 weeks [facility] [id number] Telephone encounter Note* Telephone Encounter - Jayme Perez MD - 06/17/2024 7:12 AM EST She is right on the border of the elevated. I would just continue the same dose and get rechecked it again in about 2 weeks[id number] History of Present illness Narrative* Jayme Perez MD - 04/15/2024 2:30 PM EDT Images from the original note were not included. Patient ID: Wilda Sen is a 79 y.o. female who presents for: Arrhythmia Patient who presents for follow-up of atrial fibrillation. Symptoms include palpitations. Onset wasseveral years ago, and have been gradually worsening [...] mouth in the morning and 500 mg inthe evening and 500 mg before bedtime. [DISCONTINUED] ondansetron ODT (Zofran-ODT) 4 MG disintegrating tablet Take 4 mg by mouth every 8 (eight) hours if needed for nausea [DISCONTINUED] oxyCODONE-acetaminophen (Percocet) 5-325 MG tablet Take 1 tablet by mouth every 6 (six) hours if needed metFORMIN (Glucophage) 1000 MG tablet Take 1 tablet (1,000 mg) by mouth in the morning and 1 tablet(1,000 mg) in the evening. Take with meals. 180 tablet 1 No current facility-administered medications on file prior to visit. 1. 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 (CMS/HCC) Chronic problem, stable, comanaged with Cardiology. Asymptomatic. 2. prison current use of anticoagulant Chronic problem, stable, monitored monthly and longitudinally 1 can see the phone notes related to this. We have previously fill her warfarin. 3. Type 2 diabetes mellitus with stage 3a chronic kidney disease, without long- term current use of insulin (HCC) (CMS/HCC) Chronic [...] 4. Stage 3a chronic kidney disease (HCC) ([facility]/HCC) Chronic problem, historically stable. Continue to monitor longitudinally. 5. Microalbuminuria Chronic problem, defining an aspect the nephropathy, with significant risk, uncertain progression requiring longitudinal monitoring, and moderate decision making. Microalbuminuria describes a moderate increase in the level of urine albumin. Normally, the kidneysfilter albumin, so if the kidney leaks small amounts of albumin into the urine then it is a indicator of chronic kidney disease. Microalbuminuria is an independent indicator of increased cardiovascular risk among individuals andtherefore can be used for risk stratification for [...] former smoker, intermittent current marijuana smoking, in im munosuppression from medications, we will probably need to do lung abdomen and pelvis. 7. Chronic fatigue Chronic problem, unstable And worsening, complex in nature with moderate decision making. I discussed with the patient or their logistics service representative, their fatigue issues. We discussed how this is either not improved or not inadequately addressed. We discussed how this is almost always a multifactorial problem. We discussed that the patient willalmost certainly need to continue to make lifestyle [...] 60 tablet; Refill: 0 documented in this encounterMiss[facility] [id number] Hospital Discharge instructions Patient Education 10/14/2023 09:33:38 [...] about 300 mg of calcium at each meal.Foods that contain 200 500 mg of calcium a serving include: ?8 oz (237 mL) of milk, jgiyusy-oukrzcuanuhe-xtxkd milk, and calcium- fortifiedfruit juice. Calcium-fortified means that calcium has been [...] the table and allow each person to addtheir own salt to taste. Use vegetable protein, such as beans, textured vegetable protein (TVP), or tofu, instead of meat inpasta, casseroles, and soups. Meal planning Eat less salt, if told by your dietitian. To do this: ?Avoid eating processed or pre-made food. ?Avoid eating fast food. Eat less animal protein, including cheese, meat, poultry, or fish, if told by your dietitian. To dothis: ?Limit the number of times you have meat, poultry, fish, or cheese each week. Eat a diet free of meat at least 2 days a week. ?Eat only one serving each day of meat, poultry, fish, or seafood. ?When you prepare animal proteins, cut pieces into small portion sizes. For most meat and fish, oneserving is about the size of the palm [...] ?Spinach (cooked), rhubarb, beets, sweet potatoes, and Monegasque chard. ?Peanuts. ?Potato chips, greenlandic fries, and baked potatoes with skin on. ?Nuts and nut products. ?Chocolate. If you regularly take a diuretic medicine, make sure to eat at least 1 or 2 servings of fruits or vegetables that are high in potassium each day. These include: ?Avocado. ?Banana. ?Goodview, prune, carrot, or tomato juice. ?Baked potato. [...] magnesium, fish oil, or vitamin B6. Take rqek-zhg-bbvpemw and prescription medicines only as told by [...] Casseroles. Pizza. Lasagna. Frozen meals. Potato chips. Tamazight fries. The items listed above may not be a complete list of foods and beverages you should limit. Contact a dietitian for more information. What foods should I avoid? Talk to your dietitian about specific foods you should avoid based on the type of kidney stones youhave and your overall health. Fruits Grapefruit. The item listed above may not be a complete list of foods and beverages you should avoid. Contact adietitian for more information. Summary Kidney stones are [...] provider. Document Revised: 10/10/2022 Document Reviewed: 10/10/2022 Zapproved Patient Education 2022 Offerboard. Follow Up Care 08/13/2023 10:19:44 With:CORA AGUIAR, Williams P, URL Address: [address] [place], [place] [id number]- When: Unknown [facility] [place] [id number] Hospital Discharge instructions Patient Education 08/13/2023 11:34:50 [...] at the tip of the penis. The ureteroscopeis inserted through the urethra, and surgical instruments are moved through the bladder and the muscular tube that connects the kidney to the bladder (ureter) until they reach the kidney. Tell a health care provider about: Any allergies you have. All medicines you are taking, including vitamins, herbs, eye drops, creams, and uozi-nhu-lhntllx medicines. Any problems you or family members [...] provider tells you to take them. ?Taking dwvb-vnu-rrqdbes medicines, vitamins, herbs, and supplements. Eating and [...] for at least 4 weeks before the procedure.These products include cigarettes, e-cigarettes, and chewing tobacco. [...] be inserted through the tube into your kidneyto remove the pieces of broken kidney stone. The procedure may vary among health care providers and hospitals. What happens after the procedure? Your blood pressure, heart rate, breathing rate, and blood oxygen level will be monitored until youleave the hospital or clinic. You will be given pain medicine as needed. You may continue to receive antibiotics. You may have a stent temporarily placed in your ureter. Do not drive for 24 hours if you were given a sedative during your procedure. You may be given a strainer to collect any stone fragments that you pass in your urine. Your healthcare provider may have these tested. This information is not intended to replace advice given to you by your health care provider. Make sure you discuss any questions you have with your health care provider. Document Revised: 11/06/2022 Document Reviewed: 03/04/2022 Zapproved Patient Education 2022 Offerboard. Follow Up Care 08/12/2023 14:37:00 With:ANGELITO AGUIAR, Renato Arzola, URL Address: [facility] [address], [place] [phone] When: Unknown Comments:sched ureteroscopyf/u w/ [facility] scheduled 10/14/23 [facility] 01-25-2024 History of Present illness Narrative* Jayme Perez MD - 08/07/2023 10:00 AM EST Patient ID: Wilda Sen is a 78 [...] the feet, polydipsia, polyuria, and visual disturbances. Evaluationto date has included: hemoglobin A1C. Home sugars: [...] 0.55 - 1.02 mg/dL Final [facility]H EGFR-AF [facility] 07/22/2023 >60 >=60 Final TBH EGFR-NON AF [facility] 07/22/2023 55 (L) >=60 Final BUN CREATININE [...] Other Reaction(s): rash swelling Ciprofloxacin Other Reaction(s): bnenett, Unknown Nsaids Other Reaction(s): Abdominal Pain, Unknown [...] and blood sugar to goal, staying well hydrated,and aerobic exercises as tolerated. Continue to monitor longitudinally. Microalbuminuria Chronic problem, defining the nephropathy, with significant risk, uncertain progression requiring longitudinal monitoring, and moderate decision making. Microalbuminuria is a term to describe a moderate increase in the level of urine albumin. Normally,the kidneys filter albumin, so if the kidney leaks small amounts of albumin and the albumin is found in the urine, then it is a marker of kidney disease. Microalbuminuria is a strong and independent indicator of increased cardiovascular risk among individuals with and without diabetes. Therefore, microalbuminuria can be used for stratification of increased risk for cardiovascular disease. 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 documented in this encounterMissouri [facility] Medical [id number] Evaluation note* Encounter Date Diagnosis Assessment Notes Treatment Notes Treatment Clinical Notes Jul, Contact with and (suspected) exposure [...] care as directed rx of steroid and [place], cool mist humidification. May use Tylenol as directed. Immediate eval for signs of respiratory distress, difficulty breathing poor PO intake, signs of dehydration, fever, or other concerning symptoms. Otherwise, follow up with PCP in 2-3 days. Patient verbalizes understanding and is agreeable to treatment plan. Patient sent home in stable condition. Revl Other 08-11-2022 NotePROCEDURE: XR FOOT LT MIN 3 VIEWS COMPARISON: None. HISTORY: Pain in left foot FINDINGS: BONES:No acute fracture or dislocation. Mild enthesopathic spurring of the calcaneus. SOFT TISSUES:Negative. No visible soft tissue swelling. EFFUSION:None visible. OTHER: Negative. IMPRESSION: Mild enthesopathic spurring of the calcaneus Electronically authenticated by: BLANCA ZAVALA Date: 2022-02-21 07:28[facility]ments Appointment Date:07/12/2024 10:45:00 AM Scheduled Provider:Williams SHEPHERD MD [place] [place] Appointment Type:URO Office Visit [facility] Evaluation + Plan note Future Appointments Appointment Date:07/12/2024 10:45:00 AM Scheduled Provider:Williams SHEPHERD MD Location[place] Appointment Type:URO Office Visit Diagnostic Tests Pending * Calculi [facility] Appointment Date:10/14/2023 09:15:00 AM Scheduled Provider:Williams SHEPHERD MD Location[place] [place] Appointment Type:URO Office Visit Appointment Date:07/12/2024 10:45:00 AM Scheduled Provider:Williams SHEPHERD MD Location:[facility] [place] Appointment Type:URO Office Visit [facility] evaluykigp noteNort [employer] Other evaluation noteNo assessment information available [facility] Work Phone: evaluation note* Diagnosis Chronic diastolic heart failure (CMS/HCC)- Primary Chronic diastolic heart failure 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 (CMS/HCC) Atrial fibrillation Type 2 diabetes mellitus with stage 3a chronic kidney disease, without long-term current use of insulin (HCC) ([facility]/HCC) Stage 3a chronic kidney disease (HCC) ([facility]/HCC) Microalbuminuria Proteinuria Former smoker Personal history of tobacco use, presenting hazards to health 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, adult prison current use of anticoagulant Psoriatic arthropathy (CMS/HCC) Psoriatic arthropathy Gastroesophageal reflux disease without esophagitis Esophageal reflux documented in this encounter [facility] HealthcareEvaluation note* Diagnosis 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 (CMS/HCC)- Primary 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 Type 2 diabetes mellitus with stage 3a chronic kidney disease, without long-term current use of insulin (HCC) (CMS/HCC) Stage 3a chronic kidney disease (HCC) (CMS/HCC) Microalbuminuria Proteinuria Unexplained weight loss Loss of weight Chronic fatigue Other malaise and fatigue Sleep arousal disorder [facility] Diagnosis Type 2 diabetes mellitus with stage 3a chronic kidney disease, without long-term current use of insulin (HCC) (CMS/HCC) documented in this encounter [facility] N[facility]ative - [facility] Other History general Narrative - Reported* Type Description Date Medical History Arthritis Medical History diabetes mallitus Surgical History cataract surgery [facility] Other Hospital course Narrative No data available for this section [facility] [employer] Hospital Discharge instructions No data available for this section [facility] [employer] Progress note No data available for this section [facility] [employer] Summary Purpose Family History No Family History [...] and content) DATE CREATED AUTHOR 12/20/2022 [facility] DATE CREATED AUTHOR AUTHOR'S ORGANIZ ATION 04/10/2024 [facility] DATE CREATED AUTHOR AUTHOR'S ORGANIZ ATION 07/13/2024 [facility] DATE CREATED AUTHOR AUTHOR'S ORGANIZ ATION 08/06/2024 [facility] EPIC Patient Care team informatio n (unrecognized section and content) Team Status: Active Member Role Status Dates Jayme Perez MD Primary Care Provider Active Team Status: Inactive Member Role Status Dates Jayme Perez MD Primary Care Provider Active Williams Shepherd MD Attending Provider Active Ultrasound Coordinator Relationship Specialty Start Date End Date Jayme Perez MD [address] [facility] [place] [address] (Fax) PCP - General Family Medicine 11/25/22 Jayme Perez MD [address] [place] [place] [address] (Fax) PCP - ACO Reach 12/05/22 Ultrasound Coordinator Relationship Specialty Start Date End Date Jayme Perez MD [address] [place] [address] (Fax) PCP - General Family Medicine 11/25/22 Jayme Perez MD [address] [facility] [place] [address] (Fax) PCP - ACO Reach 12/05/22 Team Status: Inactive Member Role Status Dates Jayme Perez MD Primary Care Provider Active Start: March 31, 2024 End: March 31, 2024 Radames Monteiro MD Attending Provider Active St art: March 31, 2024 End: March 31, 2024 Ultrasound Coordinator Relationship Specialty Start Date End Date Jayme Perez MD [address] [facility] [place] [phone] (Fax) PCP - General Family Medicine 11/25/22 Jayme Perez MD [address] [place] [address] (Fax) PCP - ACO Reach 12/05/22 Felicia Farmer DO [address] [place], [place] [address]e [address] [place] [address] Referring Physician Ophthalmology 08/21/23 Renato Santacruz MD [address] [place] [phone] Referring Physician Urology 08/21/23 Radames Monteiro MD [address] [place] [phone] Referring Physician Rheumatology 08/21/23 Ultrasound Coordinator Relationship Specialty Start Date End Date Jayme Perez MD [address] [place] [phone] (Fax) PCP - General Family Medicine 11/25/22 Jayme Perez MD [address] [place] [phone] (Fax) PCP - ACO Reach 12/05/22 Felicia Farmer DO [address] [place] [phone] Referring Physician Ophthalmology 08/21/23 Renato Santacruz MD [address] [place] [phone] Referring Physician Urology 08/21/23 Radames Monteiro MD [address] [place] [phone] Referring Physician Rheumatology 08/21/23 Ultrasound Coordinator Relationship Specialty Start Date End Date Jayme Perez MD [address] [place] [address] (Fax) PCP - General Family Medicine 11/25/22 Jayme Perez MD [address] [place] [address] (Fax) PCP - ACO Reach 12/05/22 Felicia Farmer DO [address] [place] [address] Referring Physician Ophthalmology 08/21/23 Renato Santacruz MD [address] [place] [address] Referring Physician Urology 08/21/23 Radames Monteiro MD [address] Professional [address] [place] [phone] Referring Physician Rheumatology 08/21/23 Ultrasound Coordinator Relationship Specialty Start Date End Date Jayme Perez MD [address] [place] [address] (Fax) PCP - General Family Medicine 11/25/22 Jayme Perez MD [address] [place] [address] (Fax) PCP - ACO Reach 12/05/22 Felicia Farmer DO [address] [place] [address] Referring Physician Ophthalmology 08/21/23 Renato Santacruz MD [address] [place] [address] Referring Physician Urology 08/21/23 Radames Monteiro MD [address] [place] [phone] Referring Physician Rheumatology 08/21/23 Ultrasound Coordinator Relationship Specialty Start Date End Date Jayme Perez MD [address] [place] [address] (Fax) PCP - General Family Medicine 11/25/22 Jayme Perez MD [address] [place] [address] (Fax) PCP - ACO Reach 12/05/22 Felicia Farmer DO [address] [place] [phone] Referring Physician Ophthalmology 08/21/23 Renato Santacruz MD [address] [place] [phone] Referring Physician Urology 08/21/23 Radames Monteiro MD [address] [place] [phone] Referring Physician Rheumatology 08/21/23 Ultrasound Coordinator Relationship Specialty Start Date End Date Jayme Perez MD [address] [place] [address] (Fax) PCP - General Family Medicine 11/25/22 Jayme Perez MD [address] [place] [address] (Fax) PCP - ACO Reach 12/05/22 Felicia Farmer DO [address] [place] [address] Referring Physician Ophthalmology 08/21/23 Renato Santacruz MD [address] [place] [address] Referring Physician Urology 08/21/23 Radames Monteiro MD [address] [place] [address] Referring Physician Rheumatology 08/21/23 Ultrasound Coordinator Relationship Specialty Start Date End Date Jayme Perez MD [address] [place] [address] (Fax) PCP - General Family Medicine 11/25/22 Jayme Perez MD [address] [place] [address] (Fax) PCP - ACO Reach 12/05/22 Felicia Farmer DO [address] [place] [address] Referring Physician Ophthalmology 08/21/23 Renato Santacruz MD [address] [place] [address] Referring Physician Urology 08/21/23 Radames Monteiro MD [address] [place] [phone] Referring Physician Rheumatology 08/21/23 Ultrasound Coordinator Relationship Specialty Start Date End Date Jayme Perez MD [address] [place] [address] (Fax) PCP - General Family Medicine 11/25/22 Jayme Perez MD [address] [facility] [address] [place] [address] (Fax) PCP - ACO Reach 12/05/22 Felicia Farmer DO [address] [place] [address] Referring Physician Ophthalmology 08/21/23 Renato Santacruz MD [address] [place] [address] Referring Physician Urology 08/21/23 Radames Monteiro MD [address] [facility] Professional building [address] [place] [phone] Referring Physician Rheumatology 08/21/23 Ultrasound Coordinator Relationship Specialty Start Date End Date Jayme Perez MD [address] [facility] [address] [place] [address] (Fax) PCP - General Family Medicine 11/25/22 Jayme Perez MD [address] [facility] [address] [place] [address] (Fax) PCP - ACO Reach 12/05/22 Felicia Farmer DO [address] [place] [address] Referring Physician Ophthalmology 08/21/23 Renato Santacruz MD [address] [place] [address] Referring Physician Urology 08/21/23 Radames Monteiro MD [address] [facility] [address] [place] [phone] Referring Physician Rheumatology 08/21/23 Ultrasound Coordinator Relationship Specialty Start Date End Date Jayme Perez MD [address] [place] [address] PCP - General Family Medicine 11/25/22 Jayme Perez MD [address] [place] [address] PCP - ACO Reach 12/05/22 Felicia Farmer DO [address] [place] [address] Referring Physician Ophthalmology 08/21/23 Renato Santacruz MD [address] [place] [address] Referring Physician Urology 08/21/23 Radames Monteiro MD [address] [facility] Professional building [address] [place] [phone] Referring Physician Rheumatology 08/21/23 Goals (unrecognized section and content) Goals may be documented in a n alternate section REASON FOR VISIT (unrecogniz ed section and content) Reason Comments Hyperlipidemia Diabetes Reason Comments Atrial Fibrillation Diabetes Reason Comments Med Refill Reason Comments Diabetic Eye Exam FOR RECORDS PERTAINING TO PATIENTS WHO ARE [...] BE BASED ON THE PRIMARY CLINICAL RECORDS. [facility]. provides no warranty or guarantee of the accuracy or completeness of information in this document.
[2024-08-17 10:54] LABS: INR 1.99; Prothrombin Time 19.7 sec (9.0-11.6)
== END 2024-08-17 10:13 | disposition home or self-care (01) ==
LOC: LAB 10:13
PROVIDERS: PCP Family Medicine; Visit Provider Family Medicine
DX: Z79.01 Long term (current) use of anticoagulants (principal); I48.0 Paroxysmal atrial fibrillation; Z51.81 Encounter for therapeutic drug level monitoring; E11.9 Type 2 diabetes mellitus without complications
CPT/HCPCS: 36415; 85610

== ENCOUNTER 2024-09-13 10:07 | Outpatient (OUT) | payer MEDICARE, SELFPAY ==
--- OUTSIDE RECORDS SUMMARY | 2024-09-13 10:21 | XMS_ITS | CCD ---
Author Organization [facility] Care Team Providers Care 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 Name Role Phone Astrid Baker Unavailable CAYETANO, [...] Unavailable Jayme Perez MD Primary Care Provider [phone] Jayme Perez MD Unavailable [phone] MD Jayme Perez Primary Care Provider [phone] MD Radames Monteiro Attending Provider Radames Monteiro Admitting Unavailable Radames Monteiro Attending Unavailable Jayme Perez Primary Care Unavailable Felicia Farmer DO Unavailable [phone] Renato Santacruz MD Unavailable [phone] Radames Monteiro MD Unavailable Jayme Perez MD Primary Care Provider Jayme Perez MD Unavailable Jayme Perez MD Primary Care Provider Jayme Perez MD Unavailable Williams SHEPHERD Attending Unavailable Renato SANTACRUZ [...] (qualifier value) [facility] (1 source) sulfaSALAzine Drug Allergy rash Achieve3000 Other (1 source) Ciprofloxacin Drug Allergy 03-30-20 13 [facility] (2 sources) Ketorolac; Translations: [Toradol] Drug Allergy 03-30-20 13 [facility] (2 sources) metroNIDAZOLE; Translations: [MetroGel] Drug Allergy 03-30-20 13 [facility] (1 source) NSAIDs Drug allergy (disorder) 03-30-20 13 [facility] (2 sources) pioglitazone; Translations: [Actos] Drug Allergy 03-30-20 13 [facility] (1 source) Sulfonamides (Antibiotic) Drug allergy (disorder) 03-30-20 13 [facility] (13 sources) Ketorolac; Translations: [ketorolac] Drug Allergy 03-26-20 Unknown (qualifier value), Nausea (finding) [facility] Comment on above: Severe (20 sources) Latex; Translations: [latex] Drug allergy 01-07-20 Blister of skin AND/OR mucosa (finding) [facility] (20 sources) Non-steroidal anti-inflammatory agent; Translations: [NSAIDs] Drug allergy 02-19-20 Unknown (qualifier value) [facility] (20 sources) pioglitazone; Translations: [pioglitazone] Drug Allergy 01-07-20 23 Unknown (qualifier value) [facility] (6 sources) Sulfonamides (Antibiotic); Translations: [sulfa drugs] Drug allergy Unknown (qualifier value) [facility] (20 sources) metroNIDAZOLE; Translations: [Metronidazole] Drug Allergy 02-19-20 Redness of Skin [facility] (3 sources) Sulfonamides (Antibiotic); Translations: [Sulfa (Sulfonamide Antibiotics)] Allergy to substance 03-26-20 [facility] (3 sources) NSAIDS (Non-Steroidal Anti-Inflamma; Translations: [NSAIDS (Non-Steroidal Anti-Inflamma] Allergy to substance 03-26-20 Anaphylaxis, Anaphylaxis, rash [facility] (1 source) Non-steroidal anti-inflammatory agent Drug allergy [facility] Meta[employer] Other (20 sources) Substance with sulfonamide structure and antibacterial mechanism of action (substance) Drug allergy 02-19-20 rash [facility] MetaCart[employer] Other (19 sources) Ketorolac Allergy to substance 01-07-20 Nausea Only [facility] (19 sources) Hydrocodone Bit-Homatrop Mbr Propensity to adverse reactions 08-07-19 Dizziness [facility] (19 sources) Medical Adhesive Remover Drug Allergy 02-19-20 [facility] (1 source) Ciprofloxacin Drug Allergy 07-25-19 [facility] (1 source) Ketorolac Drug Allergy 03-26-20 [facility] (1 source) pioglitazone Drug Allergy 03-26-20 [facility] Medications Current Medications Medication Drug Class(es) Dates Sig (Normalized) Sig (Original) acarbose 100 mg oral tablet (20 sources) alpha-Glucosidase Inhibitor Start: 08-17-2019 End: 10-12-2024 acarbose (Precose) 100 MG tablet Indications: Type 2 diabetes mellitus with stage 3a chronic kidney disease, without long-term current use of insulin (HCC) ([facility]/HCC) Take 1 tablet (100 mg) by [...] Refill(s) 0 Start Date: 08/13/23 Status: Ordered [id number] 200 actuat albuterol 0.09 mg/actuat metered dose [...] Date: 09/19/20 Status: Ordered Cyanocobalamin-Liver Extract (Vitamin U77-Blvyu) Tablet (2 sources) Start: 03-26-2023 take 1 tablet by mouth once daily Cyanocobalamin-Liver Extract (Vitamin Z56-[id number]) Tablet Active 1 TAB PO every day at March 26, 2023 12:00am Start: 03-26-2023 take 1 tablet by valdo th once daily Cyanocobalamin-Liver Extract (Vitamin J27-Fraww) Tablet Active 1 TAB PO every day at March 25, 2023 11:00pm dextromethorphan hydrobromide 1.5 mg/ml / pyrilamine maleate 1.5 mg/ml oral solution (1 source) Uncompetitive G-xsqfjh-L-aspartate Receptor Antagonist, Sigma-1 Agonist Start: 07-25-2023 take 10 mL by mouth every eight hours [place] DM 7.5-7.5 MG/5ML 10 mL Orally every [...] Active Misc Medication (5 sources) Start: 09-19-[place] [facility] [place], Oral Start Date: 09/19/20 Status: Ordered Start: 09-19-2020 [facility] [place] [...] aking/PRN Spacer/Aero-Holding Chambers (BreatheRite Leonor Spacer Adult) [facility] (19 sources) Start: 07-16-2023 Spacer/Aero-Ho lding Chambers (BreatheRite Leonor Spacer Adult) [facility] Indications: Chronic obstructive pulmonary disease with acute exacerbation (CMS/HCC) 2 puffs 4 (four) times a day as needed (sob and cough) 1 each 07/16/2023 Active Start: 07-16-2023 Spacer/Aero-Ho lding Chambers (BreatheRite Leonor Spacer Adult) [facility] Indications: Chronic obstructive pulmonary disease with acute exacerbation (CMS/HCC) 2 puffs 4 (four) times a day as needed (sob and cough) 1 each 0 07/16/2023 Active tamsulosin hydrochloride 0.4 mg oral capsule (18 sources) alpha-Adrenergic Sergey Start: 08-13-2023 End: 08-20-2023 [...] Active traZODone hydrochloride 50 mg oral tablet (12 sources) Serotonin Reuptake Inhibitor Start: 04-15-2024 traZODone [...] mellitus] Onset: 3 Chronic Diverticulosis and diverticulitis (19 sources) 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; Translations: [Diverticulosis of large intestine without perforation or abscess without bleeding] Onset: 3 12-12-2022 Chronic Esophageal disorders (20 sources) Gastroesophageal reflux disease without esophagitis; Translations: [Gastro-esophageal reflux disease without esophagitis] Onset: 3 08-18-2023 Chronic Glaucoma (20 sources) Preglaucoma, unspecified, bilateral; Translations: [Preglaucoma, unspecified] Onset: 3 05-19-2023 Chronic Heart valve disorders (20 sources) Nonrheumatic aortic (valve) stenosis; Translations: [Aortic valve disorders] Onset: 3 12-12-2022 Chronic Immunity disorders (19 sources) Immunosuppression; Translations: [Immunodeficiency, unspecified] Onset: 3 12-12-2022 Chronic Malaise and fatigue (2 sources) Fatigue; Translations: [Chronic fatigue, unspecified] 04-15-2024 Chronic Menopausal disorders (19 sources) Disorder associated with menstruation AND/OR menopause; Translations: [Menopausal and female climacteric states] Onset: 3 12-12-2022 Chronic Mood disorders (5 sources) Depressive disorder 08-17-2019 Chronic Nutritional deficiencies (19 sources) Vitamin D deficiency; Translations: [Vitamin D deficiency, unspecified] Onset: 3 12-12-2022 Chronic Osteoporosis (20 sources) Osteoporosis; Translations: [Age-related osteoporosis without current pathological fracture] Onset: 3 12-12-2022 Chronic Other aftercare (1 source) buttermaker (current) use of anticoagulants; Translations: [PRISON CURRNT USE ANTICOAGULANTS] Onset: 3 Episodic Other aftercare (5 sources) Encounter for therapeutic drug level monitoring; Translations: [ENC THERAPEUTC DRUG LEVL MONITORING] Onset: 3 Episodic Other aftercare (1 source) Other mcfp (current) drug therapy; Translations: [OTH PRISON CURRENT DRUG THERAPY] Onset: 3 Episodic Other and ill-defined heart disease (4 sources) Cardiomegaly; Translations: [CARDIOMEGALY] Onset: 3 Chronic Other and ill-defined heart disease (19 sources) Ventricular hypertrophy ; Translations: [Cardiomegaly] Onset: 3 12-12-2022 Chronic Other diseases of kidney and ureters (2 sources) Urinary tract obstruction; Translations: [Hydronephrosis with renal and ureteral calculous obstruction] Onset: 4 Episodic Other endocrine disorders (1 source) Disorder of adrenal gland; Translations: [Disorder of adrenal gland, unspecified] Onset: 4 Chronic Other gastrointestinal disorders (1 source) Adrenal mass [...] finding 08-20-2019 Unclassified (3 sources) Obstructive hydronephrosis 08-13-2023 Viral infection (1 [...] that caused by tuberculosis or sexually transmitteddisease) (20 sources) Blepharitis of upper and lower eyelids of bilateral eyes; Translations: [Unspecified blepharitis right eye, upper and lower eyelids] Onset: 05-19-2023 05-19-2023 Episodic Mood disorders (19 sources) Mood disorders Onset: 05-22-2023 05-22-2023 Nutritional deficiencies (19 sources) Iron deficiency; Translations: [Iron deficiency] Onset: 12-12-2022 12-12-2022 Episodic Other aftercare (1 source) buttermaker (current) use of oral hypoglycemic drugs; Translations: [PRISON USE ORAL HYPOGLYCEMIC DX] Onset: 08-12-2022 Episodic Other aftercare (1 source) buttermaker (current) use of insulin; Translations: [PRISON CURRENT USE OF INSULIN] Onset: 02-13-2022 Episodic Other aftercare (20 sources) Long-term current use of anticoagulant; Translations: [buttermaker (current) use of anticoagulants] Onset: 07-21-2023 Episodic Other bone disease and musculoskeletal deformities (19 sources) Osteopenia; Translations: [Other specified disorders of bone density and structure, unspecified site] Onset: 12-12-2022 12-12-2022 Episodic Other connective tissue disease (4 sources) Pain in left foot; Translations: [PAIN IN LEFT FOOT] Onset: 02-20-2022 Episodic Other eye disorders (20 sources) Dry eyes; Translations: [Dry eye syndrome of bilateral lacrimal glands] Onset: 05-19-2023 05-19-2023 Episodic Other nutritional; endocrine; and metabolic disorders (19 sources) Overweight; Translations: [Overweight] Onset: 12-12-2022 Resolved: 07-30-2023 07-30-2023 Episodic Pneumonia (except that caused by tuberculosis or sexually transmitted disease) (1 source) Pneumonia, unspecified organism Onset: 05-21-2021 Resolved: 05-21-2021 Episodic Residual codes; unclassified (20 sources) Body mass index 20-24 - normal; Translations: [Body mass index (BMI) 24.0-24.9, adult] Onset: 07-30-2023 07-30-2023 Episodic Residual codes; unclassified (19 sources) Sleep disorder; Translations: [Sleep disorder, unspecified] [...] Test Name Value Interpretation Reference Range [facility] TIME INR W/O COUMon 08-17-2024 Interpretation and review of laboratory results Abnormal [facility] PT Coag (PPP) [Time] 19.7 s High [facility] INR 1.99 [facility] Comment on above: DESIRED INR: 2.0-3.0 CONDITIONS NOT LISTED BELOW 2.5-3.5 FOR PROSTHETIC HEART VALVE REPLACEMENT 2.5-3.5 RECURRENT THROMBOSIS [facility] Ophthalmic OCT panelon 08-04 [facility] Right Eye Images reviewed and comparison [...] layer (NFL) thickness both eyes (OU). Stable. [facility] Radiology Study observation (narrative) [facility] PROTHROMBIN TIME INR W/O COUMon 07-19-2024 Interpretation and review of laboratory results Abnormal [facility] PT Coag (PPP) [Time] 27 s High [facility] INR 2.82 [facility] Comment on above: DESIRED INR: 2.0-3.0 CONDITIONS NOT LISTED BELOW 2.5-3.5 FOR PROSTHETIC HEART VALVE REPLACEMENT 2.5-3.5 RECURRENT THROMBOSIS [facility] Ambulatory Visit Summaryon 1 Ambulatory Visit Summary Ambulatory Visit Summary WILDA SEN :1945 Visit Date:07/12/2024 Ambulatory Visit Instructions Your Diagnosis Kidney stone Adrenal nodule Anticoagulated Your Care Team Attending Physician - Williams [...] Following Appointments Follow Up with CORA AGUIAR, Williams Venegas, MILDRED When: Where: [address] [place] [address] [place] [id number]- Medications What How Much When Instructions Unchanged [...] murmur History of uterine cancer Hx of mcfp use of blood thinners Kidney stone Kidney [...] be greater depending (more content not included)... [facility] Reminderson 07-12-2024 Reminders Reminders From: Julita Vu To: [place] - Bang Shepherd; Sent: 07/12/2024 12:09:59 EST [...] ) Other: PROVIDER RELATED REMINDER:_ ( ) Toll Gate Tender ( ) Call Pharmacy ( ) Call Lab ( ) Other: Special Instructions:_ Comments:_ [facility] Reminders Reminders From: Jo-Ann Schaeffer To: EU - Administrative; Sent: 07/12/2024 11:46:18 EST Show up: 04/17/2026 11:46:00 EDT Subject: 2 YR AND KUB Due Date/Time: 07/03/2026 11:46:00 EST Reminder/Recall SCHEDULE IN 2 YRS AND KUB W/ DR SHEPHERD [facility] Urology Office/Clinic Noteon 07-12-2024 Urology Office/Clinic Note Urology Office/Clinic Note Chief Complaint 3 month F/U w KUB HPI Staff 18 mo with KUB due to kidney stones. KUB 07/05/24[facility] *no uro meds Dysuria: denies Incomplete bladder [...] nodule. Not worrisome, stable. 3. Anticoagulated (Z79.01: buttermaker (current) use of anticoagulants) Warfarin for A-fib. [...] Williams Venegas, URL [address] [address]- Additional Instructions: 18 mos with KUB Patient Education Dietary Guidelines to Help Prevent Kidney Stones I, Julita Vu, personally scribed for Dr. Shepherd on 07/12/2024 11:45:03. . Portions of this record may have been created with voice recognition artificial intelligence software, specifically [employer], [employer] and or Evi. Substitutions may have occurred due to the inherent limitations of voice recognition and artificial intelligence software. 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 Normal [facility] Comment on above: Result Comment: Elec tronically Signed By: Williams SHEPHERD MD P\.br\Date and Time Signed: 07/12/24 12:24 EST\.br\Electronically Co-Signed By: Julita Vu P\.br\Date and Time Co-Signed: 07/12/24 11:46 EST [facility] W/O COUMon 07-01-2024 Interpretation and review of laboratory results Abnormal [facility] PT Coag (PPP) [Time] 30.3 s High [facility] TB INR 3.21 [facility] Comment on above: DESIRED INR: 2.0-3.0 CONDITIONS NOT LISTED BELOW 2.5-3.5 FOR PROSTHETIC HEART VALVE REPLACEMENT 2.5-3.5 RECURRENT THROMBOSIS [facility] ALL CBC WITH AUTO DIFFon BASOPHILS ABSOLUTE AUTO 0.1 [facility] Basophils/100 WBC (Bld) 0.8 % 0.2 - 2.0 % [facility] Eosinophils/100 WBC (Bld) 3.2 % 0.9 - 7.0 % [facility] Erythrocyte distribution width (RBC) [Ratio] 14.5 % 11.0 - 15.0 % [facility] Hematocrit (Bld) [Volume fraction] 38.1 % 36.0 - 48.0 % [facility] Hemoglobin (Bld) [Mass/Vol] 12.3 g/dL 12.0 - 16.0 g/dL [facility] IMMATURE GRANULOCYTES ABS AUTO 0.03 [facility] Immature granulocytes/100 WBC (Bld) 0.5 % 0.0 - 0.5 % [facility] Interpretation and review of laboratory results Abnormal [facility] LYMPHOCYTES ABSOLUTE AUTO 2 [facility] Lymphocytes/100 WBC (Bld) 30.8 % 20.5 - 60.0 % [facility] MCH (RBC) [Entitic mass] 31.6 pg 26.7 - 34.0 pg [facility] MCHC (RBC) [Mass/Vol] 32.3 g/dL 29.9 - 35.2 g/dL [facility] MCV (RBC) [Entitic vol] 97.9 fL 81.0 - 99.0 fL [facility] MONOCYTES ABSOLUTE AUTO 0.5 [facility] Monocytes/100 WBC (Bld) 7.7 % 1.7 - 12.0 % [facility] NEUTROPHILS ABSOLUTE AUTO 3.8 [facility] Neutrophils/100 WBC (Bld) 57 % 43.0 - 75.0 % [facility] Platelet mean volume (Bld) [Entitic vol] 8.9 fL Low 9.5 - 13.5 fL [facility] EO # 0.2 [facility] PLT 300 [facility] RBC 3.89 Low [facility] WBC 6.6 [facility] PROTHROMBIN TIME INR W/O COUMon 05-14-2024 Interpretation and review of laboratory results Abnormal [facility] PT Coag (PPP) [Time] 23 s High [facility] INR 2.36 [facility] Comment on above: DESIRED INR: 2.0-3.0 CONDITIONS NOT LISTED BELOW 2.5-3.5 FOR PROSTHETIC HEART VALVE REPLACEMENT 2.5-3.5 RECURRENT THROMBOSIS [facility] CREATININEon 04-22-2024 Creatinine [Mass/Vol] 0.84 mg/dL 0.55 - 1.02 mg/dL [facility] GFR/1.73 sq M.predicted CKD-EPI (S/P/Bld) [Vol rate/Area] >60 >=60 mL/min/1.73m 2 [facility] EGFR-NON AF [place] >60 >=60 mL/min/1.73m 2 [facility] ALL CBC WITH AUTO DIFFon BASOPHILS ABSOLUTE AUTO 0.0 [facility] Basophils/100 WBC (Bld) 0.6 % 0.2 - 2.0 % [facility] Eosinophils/100 WBC (Bld) 2.1 % 0.9 - 7.0 % [facility] Erythrocyte distribution width (RBC) [Ratio] 14.1 % 11.0 - 15.0 % [facility] Hematocrit (Bld) [Volume fraction] 41.8 % 36.0 - 48.0 % [facility] Hemoglobin (Bld) [Mass/Vol] 13.5 g/dL 12.0 - 16.0 g/dL [facility] IMMATURE GRANULOCYTES ABS AUTO 0.02 [facility] Immature granulocytes/100 WBC (Bld) 0.3 % 0.0 - 0.5 % [facility] Interpretation and review of laboratory results Abnormal [facility] LYMPHOCYTES ABSOLUTE AUTO 2.1 [facility] Lymphocytes/100 WBC (Bld) 32.2 % 20.5 - 60.0 % [facility] MCH (RBC) [Entitic mass] 31.0 pg 26.7 - 34.0 pg [facility] MCHC (RBC) [Mass/Vol] 32.3 g/dL 29.9 - 35.2 g/dL [facility] MCV (RBC) [Entitic vol] 95.9 fL 81.0 - 99.0 fL [facility] MONOCYTES ABSOLUTE AUTO 0.5 [facility] Monocytes/100 WBC (Bld) 6.8 % 1.7 - 12.0 % [facility] NEUTROPHILS ABSOLUTE AUTO 3.8 [facility] Neutrophils/100 WBC (Bld) 58.0 % 43.0 - 75.0 % [facility] Platelet mean volume (Bld) [Entitic vol] 8.6 fL Low 9.5 - 13.5 fL [facility] EO # 0.1 [facility] PLT 316 [facility] RBC 4.36 [facility] WBC 6.6 [facility] PROTHROMBIN TIME INR W/O COUMon 04-13-2024 Interpretation and review of laboratory results Abnormal [facility] PT Coag (PPP) [Time] 27.7 s High [facility] INR 2.90 [facility] Comment on above: DESIRED INR: 2.0-3.0 CONDITIONS NOT LISTED BELOW 2.5-3.5 FOR PROSTHETIC HEART VALVE REPLACEMENT 2.5-3.5 RECURRENT THROMBOSIS [facility] Magnesium [Mass/volume] in S fartun or PlasmaOrdered By: Radames Monteiro on 03-31-2024 Magnesium [Mass/Vol] 1.9 mg/dL Normal 1.9-2.7 [facility] Comment on above: Result Comment: PERF ORMED BY: [facility] [address] [place] [address] PATHOLOGIST CHEMICAL ENGINEERING PROFESSOR BERNIE GRAYSON M.D. Performed By: #### Joe Alcantara, PHOS #### [facility] [address] Phosphate [Mass/volume] in S fartun or PlasmaOrdered By: Radames Monteiro on 03-31-2024 Phosphate [Mass/Vol] 3.7 mg/dL Normal 2.5-4.5 [facility] Comment on above: Performed By: #### Joe Alcantara, PHOS #### [facility] [address] ALL CBC WITH AUTO DIFFon BASOPHILS ABSOLUTE AUTO 0.0 [facility] Basophils/100 WBC (Bld) 0.6 % 0.2 - 2.0 % [facility] Eosinophils/100 WBC (Bld) 5.1 % 0.9 - 7.0 % [facility] Erythrocyte distribution width (RBC) [Ratio] 14.3 % 11.0 - 15.0 % [facility] Hematocrit (Bld) [Volume fraction] 41.5 % 36.0 - 48.0 % [facility] Hemoglobin (Bld) [Mass/Vol] 13.3 g/dL 12.0 - 16.0 g/dL [facility] IMMATURE GRANULOCYTES ABS AUTO 0.01 [facility] Immature granulocytes/100 WBC (Bld) 0.1 % 0.0 - 0.5 % [facility] Interpretation and review of laboratory results Abnormal [facility] LYMPHOCYTES ABSOLUTE AUTO 2.9 [facility] Lymphocytes/100 WBC (Bld) 39.4 % 20.5 - 60.0 % [facility] MCH (RBC) [Entitic mass] 30.9 pg 26.7 - 34.0 pg [facility] MCHC (RBC) [Mass/Vol] 32.0 g/dL 29.9 - 35.2 g/dL [facility] MCV (RBC) [Entitic vol] 96.5 fL 81.0 - 99.0 fL [facility] MONOCYTES ABSOLUTE AUTO 0.4 [facility] Monocytes/100 WBC (Bld) 6.1 % 1.7 - 12.0 % [facility] NEUTROPHILS ABSOLUTE AUTO 3.5 [facility] Neutrophils/100 WBC (Bld) 48.7 % 43.0 - 75.0 % [facility] Platelet mean volume (Bld) [Entitic vol] 8.7 fL Low 9.5 - 13.5 fL [facility] TBH EO # 0.4 [facility] TB PLT 291 [facility] RBC 4.30 [facility] WBC 7.2 [facility] PROTHROMBIN TIME INR W/O COUMon 03-17-2024 Interpretation and review of laboratory results Abnormal [facility] PT Coag (PPP) [Time] 28.2 s High [facility] INR 2.96 [facility] Comment on above: DESIRED INR: 2.0-3.0 CONDITIONS NOT LISTED BELOW 2.5-3.5 FOR PROSTHETIC HEART VALVE REPLACEMENT 2.5-3.5 RECURRENT THROMBOSIS [facility] Ambulatory Visit Summaryon 0 10-14-2023 Ambulatory Visit Summary MCKINLEYWILDA :1945 Visit Date:10/14/2023 Ambulatory Visit Instructions Your [...] [facility] Patient Educationon 10-14-19 Patient Education Nephrology Dietary [...] Spinach (cooked), rhubarb, beets, sweet potatoes, and American chard. ? Peanuts. ? Potato chips, dutch fries, and baked potatoes with skin on. ? Nuts and nut products. ? Chocolate. ? If you regularly take a diuretic medicine, make sure to eat at least 1 or 2 servings of fruits or vegetables that are high in potassium each day. These include: ? Avocado. ? Banana. ? Bradley, prune, carrot, or tomato juice. ? Baked [...] fish oil, or vitamin B6. ? Take [id number] and prescription medicines only as told by your health care provider. These include supplements. What foods sh (more content not included)... Normal [facility] Urology Office/Clinic Noteon 10-14-2023 Urology Office/Clinic Note Chief Complaint Pt is here for 3 month w/ met w/u & KUB HPI Staff 6 month follow up w/KUB Pt canceled Cysto/R retro/possible: ureteroscopy, laser, basket, stent placement 04/07/23 due to passing stones Pt was then seen at [facility] on 08/12/23 due to abdominal [...] with voice recognition artificial intelligence software, specifically [employer] and or Evi. Substitutions may have occurred due to the [...] bilateral nephrolithiasis. -See #1 3. Anticoagulated (Z79.01: shelter (current) use of anticoagulants) Warfarin for A-fib. [...] CORA AGUIAR, Williams Venegas, URL [address] [address]- Additional Instructions: 06/2024 with KUB Patient Education Dietary Guidelines to Help Prevent Kidney Stones I, Charisse Rutherford, personally scribed for Dr. Shepherd on 10/14/2023 09:33:56. Electronically signed by (more content not included)... [facility] Comment on above: Result Comment: Elec tronically Signed By: Williams SHEPHERD MD\.br\Date and Time Signed: 10/14/23 09:38 EDT\.br\Electronically Co-Signed By: Charisse Rutherford\.br\Date and Time Co-Signed: 10/14/23 09:34 EDT RAD - MISCon 10-10-2023 RAD - MISC [id number] .00TIFF [facility] Lab Reportson 08-27-2023 Lab Reports [id number]#1 .00TIFF [facility] Lab Reportson 08-25-2023 Lab Reports [id number]#1 .00TIFF [facility] Lab Reports [id number] .00TIFF [facility] Lab Reportson 08-22-2023 Lab Reports [id number] .00TIFF [facility] Lab Reportson 08-21-2023 Lab Reports [id number] .00TIFF [facility] Lab Reports [id number]#1 .00TIFF [facility] ALL BUNon 08-20-2023 Urea nitrogen [Mass/Vol] 12.0 mg/dL 7.0 - 18.0 mg/dL [facility] ALL CARBON DIOXIDEon 024 CO2 [Moles/Vol] 30.1 mmol/L 21.0 - 32.0 mmol/L [facility] ALL CHLORIDEon 08-20-2023 Chloride [Moles/Vol] 104 mmol/L 98 - 107 mmol/L [facility] ALL PHOSPHOROUSon 08-20-2023 Phosphate [Mass/Vol] 4.1 mg/dL 2.6 - 4.7 mg/dL [facility] ALL SODIUMon 08-20-2023 Sodium [Moles/Vol] 141 mmol/L 136 - 145 mmol/L [facility] ALL URIC ACIDon 08-20-2023 Urate [Mass/Vol] 4.4 mg/dL 2.6 - 6.0 mg/dL [facility] CALCIUMon 08-20-2023 Calcium [Mass/Vol] 9.1 mg/dL 8.5 - 10.1 mg/dL [facility] No Panel Informationon 08-20 [facility] CREATININEon 08-20-2023 Creatinine [Mass/Vol] 0.86 mg/dL 0.55 - 1.02 mg/dL [facility] GFR/1.73 sq M.predicted CKD-EPI (S/P/Bld) [Vol rate/Area] >60 60 - PINF [facility] EGFR-NON AF NORWEGIAN >60 60 - PINF [facility] Consent for Procedure/Surger yon 08-15-2023 Consent for Procedure/Surgery [id number] .00TIFF Normal [facility] ED Note-Physicianon 08-15-19 24 ED Note-Physician [id number]#1. 00TIFF Normal [facility] Lab Reportson 08-15-2023 Lab Reports [id number]#1. 00TIFF Normal [facility] Lab Reports [id number]#1 .00TIFF Normal [facility] Lab Reports [id number]#1 .00TIFF Normal [facility] Operative Reporton Operative Report [id number]#1 .00TIFF Normal [facility] RAD - CT Reporton 08-15-2023 RAD - CT Report [id number]#1. 00TIFF Normal [facility] Ambulatory Visit Summaryon 0 08-13-2023 Ambulatory [...] Venegas Where: [facility] Normal [address] [place] [address]- \.br\ You Need to Schedule the Following Appointments\.br \ Follow Up with ANGELITO AGUIAR, Renato Arzola, URL When: \.br\ Comments:\.br\ sched ureteroscopy\.br \ f/u w/ [facility] scheduled 10/14/23\.br\ Where:\.br\ [facility] [address]br\ [place] [address]-\.br\ [phone]\.br\ Medications\.br\ What How Much When Instructions\.br \ [...] murmur\.br\ History of uterine cancer\.br\ Hx of mcfp use of blood thinners\.br\ Kidney stones\.br\ Nocturia\.br\ [...] including vitamins, herbs, eye drops, creams, and zrpq-huz-lbzinrh medicines.\.br\ ? \.br\ Any problems you or [...] you to take them.\.br\ ? \.br\ Taking quqp-bhg-umvlwmv medicines, vitamins, herbs, and supplements.\.br \ Eating [...] [facility] Patient Educationon 08-13-19 24 Patient Education Nephrology [...] including vitamins, herbs, eye drops, creams, and rwtn-mug-bsniwsq medicines. ? Any problems you or family [...] tells you to take them. ? Taking peqm-gxe-ztwkkqq medicines, vitamins, herbs, and supplements. Eating and [...] pieces (more content not included)... Normal Tab [facility] Urology Office/Clinic Noteon 08-13-2023 Urology Office/Clinic Note Chief Complaint Patient is here for follow up to [facility] ER HPI Staff Patient is here for f/u to [facility] ER on 08/12/23 due to distal [...] Hydronephrosis with renal and ureteral calculous obstruction) [facility] ER visit 08/12/23 due to [...] abdominal pain) See #1 4. Anticoagulated (Z79.01: buttermaker (current) use of anticoagulants) On warfarin 3mg for a-fib. States she did not take this last night. Advised pt not to take her dose today either. Follow-up With When Contact Information ANGELITO AGUIAR, Renato Arzola, [facility] [address] [place] [phone] Additional Instructions: sched ureteroscopy f/u w/ [facility] scheduled 10/14/23 Patient Education Laser Therapy for Kidney Stones I, Amy Gallagher, personally scribed for Dr. Santacruz on 08/13/2023 11:35:03. . Documentation recorded by the scribeAmy, accurately reflects the services(s) I performed and decisions made by me. Authenticated by Dr. Santacruz on 08/13/2023 11:37:02. Problem List/Past Medical History [place] (more content not included)... Normal [facility] Comment on above: Result Comment: Elec tronically Signed By: Renato SANTACRUZ MD\.br\Date and Time Signed: 08/13/23 11:37 EST\.br\Electronically Co-Signed By: Amy Gallagher\.br\Date and Time Co-Signed: 08/13/23 11:35 EST COVID/FLU/RSV RT-PCRon 07-25 SARS-CoV-2 (COVID-19) RNA TREASURE+probe Ql (Unsp spec) Negative [employer] Other COVID/FLU/RSV RT-PCR Negative [facility] [place] Other COVID/FLU/RSV RT-PCR Positive [facility] [place] Other Activated partial thrombopla stin time (aPTT) in platelet poor plasma by coagulation aOrdered By: Williams Shepherd on 03-26-2023 aPTT Coag (PPP) [Time] 35.9 s 25.1-36.5 [facility] Comment on above: A hematocrit value g reater than 55% may lead to inaccurate results in coagulation testing. Patients having hematocrit values >55% require a special collection tube for coagulation studies. Please contact the laboratory at [phone] for redraw instructions. Basophils Auto (Bld) [#/Vol] Ordered By: Williams Shepherd on 03-26-2023 Basophils (Bld) [#/Vol] 0.0 10*3/uL 0.0-0.2 [facility] Basophils/100 WBC Auto (Bld) Ordered By: Williams Shepherd on 03-26-2023 Basophils/100 WBC (Bld) 0.8 % . [facility] Calcium [Mass/volume] in Ser um or PlasmaOrdered By: Williams Shepherd on 03-26-2023 Calcium [Mass/Vol] 10.0 mg/dL 8.6-10.3 [facility] Carbon dioxide, total [Moles /volume] in Serum or PlasmaOrdered By: Williams Shepherd on 03-26-2023 CO2 [Moles/Vol] 30.0 mmol/L 21.0-31.0 [facility] Chloride [Moles/volume] in S fartun or PlasmaOrdered By: Williams Shepherd on 03-26-2023 Chloride [Moles/Vol] 104 mmol/L 98-107 [facility] Creatinine [Mass/volume] in Serum or PlasmaOrdered By: Williams Shepherd on 03-26-2023 Creatinine [Mass/Vol] 0.85 mg/dL 0.60-1.20 [facility] Eosinophils Auto (Bld) [#/Vo l]Ordered By: Williams Shephedr on 03-26-2023 Eosinophils (Bld) [#/Vol] 0.3 10*3/uL 0.0-0.45 [facility] Eosinophils/100 WBC Auto (Bl d)Ordered By: Williams Shepherd on 03-26-2023 Eosinophils/100 WBC (Bld) 4.3 % . [facility] Erythrocyte distribution wid th Auto (RBC) [Ratio]Ordered By: Williams Shepherd on 03-26-2023 Erythrocyte distribution width (RBC) [Ratio] 14.8 % 11.9-15.3 [facility] Glucose [Mass/volume] in Ser um or PlasmaOrdered By: Williams Shepherd on 03-26-2023 Glucose [Mass/Vol] 111 mg/dL 70-100 [facility] Comment on above: ADA recommended refe rence rangeRandom Glucose Reference Range is dependent on time and content of last meal. Glucose of more than 200 mg/dL in a nonstressed, ambulatory subject supports the diagnosis of Diabetes Mellitus. Hematocrit Auto (Bld) [Volum e fraction]Ordered By: Williams Shepherd on 03-26-2023 Hematocrit (Bld) [Volume fraction] 40.3 % 34.0-46.4 [facility] Hemoglobin [Mass/volume] in BloodOrdered By: Williams Shepherd on 03-26-2023 Hemoglobin (Bld) [Mass/Vol] 13.3 g/dL 11.8-15.4 [facility] INR in Platelet poor plasma by Coagulation assayOrdered By: Williams Shepherd on 03-26-2023 INR Coag (PPP) [Relative time] 2.3 {INR} [facility] Comment on above: INR Therapeutic Rang [...] RBC Auto (Bld) [#/Vol] 5.9 10*3/uL 3.8-11.6 [facility] Lymphocytes Auto (Bld) [#/Vo l]Ordered By: Williams Shepherd on 03-26-2023 Lymphocytes (Bld) [#/Vol] 2.2 10*3/uL 1.00-4.8 [facility] Lymphocytes/100 WBC Auto (Bl d)Ordered By: Williams Shepherd on 03-26-2023 Lymphocytes/100 WBC (Bld) 36.9 % . [facility] MCH Auto (RBC) [Entitic mass ]Ordered By: Williams Shepherd on 03-26-2023 MCH (RBC) [Entitic mass] 31.1 pg 24.7-34.3 [facility] MCHC Auto (RBC) [Mass/Vol]Or dered By: Williams Shepherd on 03-26-2023 MCHC (RBC) [Mass/Vol] 32.9 g/dL 32.0-35.0 [facility] MCV Auto (RBC) [Entitic vol] Ordered By: Williams Shepherd on 03-26-2023 MCV (RBC) [Entitic vol] 94.4 fL 80-100 [facility] Monocytes Auto (Bld) [#/Vol] Ordered By: Williams Shepherd on 03-26-2023 Monocytes (Bld) [#/Vol] 0.5 10*3/uL 0.0-0.8 [facility] Monocytes/100 WBC Auto (Bld) Ordered By: Williams Shepherd on 03-26-2023 Monocytes/100 WBC (Bld) 7.8 % . [facility] Neutrophils Auto (Bld) [#/Vo l]Ordered By: Williams Shepherd on 03-26-2023 Neutrophils (Bld) [#/Vol] 3.0 10*3/uL 1.8-7.7 [facility] Neutrophils/100 WBC Auto (Bl d)Ordered By: Williams Shepherd on 03-26-2023 Neutrophils/100 WBC (Bld) 50.2 % . [facility] No Panel InformationOrdered By: Williams Shepherd on 03-26-2023 Estimated GFR (CKD-EPI) > 60.0 mL/Min [facility] Creatinine Clearance (Chem N/A [facility] Nucleated erythrocytes [Pres ence] in Blood by Automated countOrdered By: Williams Shepherd on 03-26-2023 Nucleated RBC Auto Ql (Bld) 0.3 /100{WBC} 0-0.5 [facility] Platelet mean volume Auto (B ld) [Entitic vol]Ordered By: Williams Shepherd on 03-26-2023 Platelet mean volume (Bld) [Entitic vol] 7.1 fL 6.3-10.7 [facility] Platelets Auto (Bld) [#/Vol] Ordered By: Williams Shepherd on 03-26-2023 Platelets (Bld) [#/Vol] 363 10*3/uL 150-450 [facility] Potassium [Moles/volume] in Serum or PlasmaOrdered By: Williams Shepherd on 03-26-2023 Potassium [Moles/Vol] 5.0 mmol/L 3.5-5.1 [facility] Prothrombin time (PT)Ordered By: Williams Shepherd on 03-26-2023 PT Coag (PPP) [Time] 26.6 s 9.0-12.9 [facility] Comment on above: A hematocrit value g reater than 55% may lead to inaccurate results in coagulation testing. Patients having hematocrit values >55% require a special collection tube for coagulation studies. Please contact the laboratory at [phone] for redraw instructions. RBC Auto (Bld) [#/Vol]Ordere d By: Williams Shepherd on 03-26-2023 RBC (Bld) [#/Vol] 4.27 10*6/uL 3.60-5.00 [facility] Serum or plasma anion gap de terminationOrdered By: Williams Shepherd on 03-26-2023 Anion gap [Moles/Vol] 13.0 mmol/L 6.0-15.0 [facility] Sodium [Moles/volume] in Ser um or PlasmaOrdered By: Williams Shepherd on 03-26-2023 Sodium [Moles/Vol] 142 mmol/L 136-145 [facility] Urea nitrogen [Mass/volume] in Serum or PlasmaOrdered By: Williams Shepherd on 03-26-2023 Urea nitrogen [Mass/Vol] 12 mg/dL 7-25 [facility] WBC Auto (Bld) [#/Vol]Ordere d By: Williams Shepherd on 03-26-2023 WBC (Bld) [#/Vol] 5.9 10*3/uL 3.8-11.6 [facility] PROTIMEon 12-02-2022 INR Coag (PPP) [Relative time] 3.62 {INR} Normal [facility] Comment on above: Performed By: #### P T #### [facility] [address] [address] [address] Tg Fierro INR GUIDELINES SEE BELOW Normal [facility] Comment on above: Result Comment: LAURENCE RED INR: 2.0 - 3.0 CONDITIONS NOT LISTED BELOW 2.5 - 3.5 FOR PROSTHETIC HEART VALVE REPLACEMENT 2.5 - 3.5 RECURRENT THROMBOSIS Performed By: #### P T #### [facility] [address] [place] [address] Dr. Tg Fierro PT Coag (PPP) [Time] 35.7 s Critically high 9.0-11.6 [facility] Comment on above: Performed By: #### P T #### [facility] [address] [place] [address] Dr. Tg Fierro PROTIMEon 11-11-2022 INR Coag (PPP) [Relative time] 1.90 {INR} Normal [facility] Comment on above: Performed By: #### P T #### [facility] [address] [place] [address] Dr. Tg Fierro INR GUIDELINES SEE BELOW Normal [facility] Comment on above: Result Comment: LAURENCE RED INR: 2.0 - 3.0 CONDITIONS NOT LISTED BELOW 2.5 - 3.5 FOR PROSTHETIC HEART VALVE REPLACEMENT 2.5 - 3.5 RECURRENT THROMBOSIS Performed By: #### P T #### [facility] [address] [place] [address] Dr. Tg Fierro PT Coag (PPP) [Time] 19.4 s Critically high 9.0-11.6 [facility] Comment on above: Performed By: #### P T #### [facility] [address] [place] [address] Dr. Tg Fierro CBC AUTO DIFFon 10-25-2022 BASO # 0.0 103/ul Normal 0.0-0.1 [facility] Comment on above: Performed By: #### P T #### [facility] [address] [place] [address] Dr. Tg Fierro Basophils/100 WBC (Bld) 0.5 % Normal 0.2-2.0 [facility] Comment on above: Performed By: #### P T #### [facility] [address] [place] [address] Dr. Tg Fierro EO # 0.2 103/ul Normal 0.0-0.7 [facility] Comment on above: Performed By: #### P T #### [facility] [address] [place] [address] Dr. Tg Fierro Eosinophils/100 WBC (Bld) 2.7 % Normal 0.9-7.0 [facility] Comment on above: Performed By: #### P T #### [facility] [address] [place] [address] Dr. Tg Fierro Erythrocyte distribution width (RBC) [Ratio] 13.4 % Normal 11.0-15.0 [facility] Comment on above: Performed By: #### P T #### [facility] [address] [place] [address] Dr. Tg Fierro Hematocrit (Bld) [Volume fraction] 40.7 % Normal 36.0-48.0 [facility] Comment on above: Performed By: #### P T #### [facility] [address] [place] [address] Dr. Tg Fierro Hemoglobin (Bld) [Mass/Vol] 13.2 g/dL Normal 12.0-16.0 [facility] Comment on above: Performed By: #### P T #### [facility] [address] [place] [address] Dr. Tg Fierro IG # 0.03 10e3/ul Normal 0.00-0.03 [facility] Comment on above: Performed By: #### P T #### [facility] [address] [place] [address] Dr. Tg Fierro IG % 0.5 % Normal 0.0-0.5 [facility] Comment on above: Performed By: #### P T #### [facility] [address] [place] [address] Dr. Tg Fierro LYMPH # 2.1 103/ul Normal 1.2-3.8 [facility] Comment on above: Performed By: #### P T #### [facility] [address] [place] [address] Dr. Tg Fierro Lymphocytes/100 WBC (Bld) 34.9 % Normal 20.5-60.0 [facility] Comment on above: Performed By: #### P T #### [facility] [address] [place] [address] Dr. Tg Fierro MANUAL DIFF REQ NO Normal [facility] Comment on above: Performed By: #### P T #### [facility] [address] [place] [address] Dr. Tg Fierro MCH (RBC) [Entitic mass] 30.5 pg Normal 26.7-34.0 [facility] Comment on above: Performed By: #### P T #### [facility] [address] [place] [address] Dr. Tg Fierro MCHC (RBC) [Mass/Vol] 32.4 g/dL Normal 29.9-35.2 [facility] Comment on above: Performed By: #### P T #### [facility] [address] [place] [address] Dr. Tg Fierro MCV (RBC) [Entitic vol] 94.0 fL Normal 81.0-99.0 [facility] Comment on above: Performed By: #### P T #### [facility] [address] [place] [address] Dr. Tg Fierro MONO # 0.4 103/ul Normal 0.3-0.8 [facility] Comment on above: Performed By: #### P T #### [facility] [address] [place] [address] Dr. Tg Fierro Monocytes/100 WBC (Bld) 7.1 % Normal 1.7-12.0 [facility] Comment on above: Performed By: #### P T #### [facility] [address] [place] [address] Dr. Tg Fierro NEUT # 3.2 103/ul Normal 1.4-6.5 [facility] Comment on above: Performed By: #### P T #### [facility] [address] [place] [address] Dr. Tg Fierro Neutrophils/100 WBC (Bld) 54.3 % Normal 43.0-75.0 [facility] Comment on above: Performed By: #### P T #### [facility] [address] [place] [address] Dr. Tg Fierro Platelet mean volume (Bld) [Entitic vol] 8.7 fL Critically low 9.5-13.5 [facility] Comment on above: Performed By: #### P T #### [facility] [address] [place] [address] Dr. Tg Fierro PLT 295 103/ul Normal 150-450 [facility] Comment on above: Performed By: #### P T #### [facility] [address] [place] [address] Dr. Tg Fierro RBC 4.33 106/ul Normal 4.20-5.40 [facility] Comment on above: Performed By: #### P T #### [facility] [address] [place] [address] Dr. Tg Fierro WBC 5.9 103/ul Normal 4.0-11.0 [facility] Comment on above: Performed By: #### P T #### [facility] [address] [place] [address] Dr. Tg Fierro PROF 14(COMP METB)on 023 Albumin [Mass/Vol] 3.8 g/dL Normal 3.4-5.0 [facility] Comment on above: Performed By: #### C MP #### [facility] [address] [place] [address] Dr. Tg Fierro Albumin/Globulin [Mass ratio] 1.2 {ratio} Normal [facility] Comment on above: Performed By: #### C MP #### [facility] [address] [place] [address] Dr. Tg Fierro ALP [Catalytic activity/Vol] 49 U/L Normal 46-116 [facility] Comment on above: Performed By: #### C MP #### [facility] [address] [place] [address] Dr. Tg Fierro ALT [Catalytic activity/Vol] 21 U/L Normal 14-59 [facility] Comment on above: Performed By: #### C MP #### [facility] [address] [address] [address] Tg Fierro Anion gap [Moles/Vol] 13.3 mmol/L Normal [facility] Comment on above: Performed By: #### C MP #### [facility] [address] [address] [address] Tg Fierro AST [Catalytic activity/Vol] 14 U/L Critically low 15-37 [facility] Comment on above: Performed By: #### C MP #### [facility] [address] [address] [address] Tg Fierro Bilirubin [Mass/Vol] 0.5 mg/dL Normal 0.2-1.0 [facility] Comment on above: Performed By: #### C MP #### [facility] [address] [place] [address] Dr. Tg Fierro Calcium [Mass/Vol] 9.5 mg/dL Normal 8.5-10.1 [facility] Comment on above: Performed By: #### C MP #### [facility] [address] [place] [address] Dr. Tg Fierro Chloride [Moles/Vol] 104 mmol/L Normal 98-107 [facility] Comment on above: Performed By: #### C MP #### [facility] [address] [place] [address] Dr. Tg Fierro CO2 [Moles/Vol] 29.3 mmol/L Normal 21.0-32.0 [facility] Comment on above: Performed By: #### C MP #### [facility] [address] [place] [address] Dr. Tg Fierro Creatinine [Mass/Vol] 0.93 mg/dL Normal 0.55-1.02 [facility] Comment on above: Performed By: #### C MP #### [facility] [address] [address] [address] Tg Fierro EGFR-AF NORWEGIAN >60 Normal >=60 [facility] Comment on above: Performed By: #### C MP #### [facility] [address] [place] [address] Dr. Tg Fierro EGFR-NON AF NORWEGIAN 59 mL/min/1.73m2 Critically low >=60 [facility] Comment on above: Performed By: #### C MP #### [facility] [address] [address] [address] Tg Fierro Globulin (S) [Mass/Vol] 3.2 g/dL Normal [facility] Comment on above: Performed By: #### C MP #### [facility] [address] [address] [address] Tg Fierro Glucose [Mass/Vol] 186 mg/dL Critically high 74-106 T [facility] Comment on above: Performed By: #### C MP #### [facility] [address] [place] [address] Dr. Tg Fierro Potassium [Moles/Vol] 4.6 mmol/L Normal 3.5-5.1 [facility] Comment on above: Performed By: #### C MP #### [facility] [address] [place] [address] Dr. Tg Fierro Protein [Mass/Vol] 7.0 g/dL Normal 6.4-8.2 [facility] Comment on above: Performed By: #### C MP #### [facility] [address] [place] [address] Dr. Tg Fierro Sodium [Moles/Vol] 142 mmol/L Normal 136-145 [facility] Comment on above: Performed By: #### C MP #### [facility] [address] [place] [address] Dr. Tg Fierro Urea nitrogen [Mass/Vol] 15.0 mg/dL Normal 7.0-18.0 [facility] Comment on above: Performed By: #### C MP #### [facility] [address] [place] [address] Dr. Tg Fierro Urea nitrogen/Creatinine [Mass ratio] 16.1 mg/mg Normal [facility] Comment on above: Performed By: #### C MP #### [facility] [address] [place] [address] Dr. Tg Fierro SED RATE [facility] 2022 SED RATE 9 mm/hr Normal <=30 [facility] Comment on above: Performed By: #### C MP #### [facility] [address] [place] [address] Dr. Tg Fierro PROTIMEon 10-14-2022 INR Coag (PPP) [Relative time] 1.94 {INR} Normal [facility] Comment on above: Performed By: #### P T #### [facility] [address] [place] [address] Dr. Tg Fierro INR GUIDELINES SEE BELOW Normal [facility] Comment on above: Result Comment: LAURENCE RED INR: 2.0 - 3.0 CONDITIONS NOT LISTED BELOW 2.5 - 3.5 FOR PROSTHETIC HEART VALVE REPLACEMENT 2.5 - 3.5 RECURRENT THROMBOSIS Performed By: #### P T #### [facility] [address] [place] [address] Dr. Tg Fierro PT Coag (PPP) [Time] 19.8 s Critically high 9.0-11.6 [facility] Comment on above: Performed By: #### P T #### [facility] [address] [place] [address] Dr. Tg Fierro CBC AUTO DIFFon 09-24-2022 BASO # 0.1 103/ul Normal 0.0-0.1 [facility] Comment on above: Performed By: #### P T #### [facility] [address] [place] [address] Dr. Tg Fierro Basophils/100 WBC (Bld) 0.7 % Normal 0.2-2.0 [facility] Comment on above: Performed By: #### P T #### [facility] [address] [place] [address] Dr. Tg Fierro EO # 0.3 103/ul Normal 0.0-0.7 [facility] Comment on above: Performed By: #### P T #### [facility] [address] [place] [address] Dr. Tg Fierro Eosinophils/100 WBC (Bld) 3.6 % Normal 0.9-7.0 [facility] Comment on above: Performed By: #### P T #### [facility] [address] [address] [address] Tg Fierro Erythrocyte distribution width (RBC) [Ratio] 13.4 % Normal 11.0-15.0 [facility] Comment on above: Performed By: #### P T #### [facility] [address] [place] [address] Dr. Tg Fierro Hematocrit (Bld) [Volume fraction] 38.4 % Normal 36.0-48.0 [facility] Comment on above: Performed By: #### P T #### [facility] [address] [place] [address] Dr. Tg Fierro Hemoglobin (Bld) [Mass/Vol] 12.7 g/dL Normal 12.0-16.0 [facility] Comment on above: Performed By: #### P T #### [facility] [address] [place] [address] Dr. Tg Fierro IG # 0.05 10e3/ul Critically high 0.00-0.[address] [facility] Comment on above: Performed By: #### P T #### [facility] [address] [address] [address] Tg Fierro IG % 0.7 % Critically high 0.0-0.5 [facility] Comment on above: Performed By: #### P T #### [facility] [address] [place] [address] Dr. Tg Fierro LYMPH # 2.6 103/ul Normal 1.2-3.8 [facility] Comment on above: Performed By: #### P T #### [facility] [address] [place] [address] Dr. Tg Fierro Lymphocytes/100 WBC (Bld) 34.2 % Normal 20.5-60.0 [facility] Comment on above: Performed By: #### P T #### [facility] [address] [place] [address] Dr. Tg Fierro MANUAL DIFF REQ NO Normal [facility] Comment on above: Performed By: #### P T #### [facility] [address] [address] [address] Tg Fierro MCH (RBC) [Entitic mass] 31.2 pg Normal 26.7-34.0 [facility] Comment on above: Performed By: #### P T #### [facility] [address] [place] [address] Dr. Tg Fierro MCHC (RBC) [Mass/Vol] 33.1 g/dL Normal 29.9-35.2 [facility] Comment on above: Performed By: #### P T #### [facility] [address] [place] [address] Dr. Tg Fierro MCV (RBC) [Entitic vol] 94.3 fL Normal 81.0-99.0 [facility] Comment on above: Performed By: #### P T #### [facility] [address] [place] [address] Dr. Tg Fierro MONO # 0.6 103/ul Normal 0.3-0.8 [facility] Comment on above: Performed By: #### P T #### [facility] [address] [place] [address] Dr. Tg Fierro Monocytes/100 WBC (Bld) 8.1 % Normal 1.7-12.0 [facility] Comment on above: Performed By: #### P T #### [facility] [address] [place] [address] Dr. Tg Fierro NEUT # 4.1 103/ul Normal 1.4-6.5 [facility] Comment on above: Performed By: #### P T #### [facility] [address] [place] [address] Dr. Tg Fierro Neutrophils/100 WBC (Bld) 52.7 % Normal 43.0-75.0 [facility] Comment on above: Performed By: #### P T #### [facility] [address] [place] [address] Dr. Tg Fierro Platelet mean volume (Bld) [Entitic vol] 8.7 fL Critically low 9.5-13.5 [facility] Comment on above: Performed By: #### P T #### [facility] [address] [place] [address] Dr. Tg Fierro PLT 278 103/ul Normal 150-450 [facility] Comment on above: Performed By: #### P T #### [facility] [address] [place] [address] Dr. Tg Fierro RBC 4.07 106/ul Critically low 4.20-5.40 [facility] Comment on above: Performed By: #### P T #### [facility] [address] [place] [address] Dr. Tg Fierro WBC 7.7 103/ul Normal 4.0-11.0 [facility] Comment on above: Performed By: #### P T #### [facility] [address] [place] [address] Dr. Tg Fierro PROF 14(COMP METB)on 023 Albumin [Mass/Vol] 3.9 g/dL Normal 3.4-5.0 [facility] Comment on above: Performed By: #### C MP #### [facility] [address] [place] [address] Dr. Tg Feirro Albumin/Globulin [Mass ratio] 1.4 {ratio} Normal [facility] Comment on above: Performed By: #### C MP #### [facility] [address] [place] [address] Dr. Tg Fierro ALP [Catalytic activity/Vol] 59 U/L Normal 46-116 [facility] Comment on above: Performed By: #### C MP #### [facility] [address] [place] [address] Dr. Tg Fierro ALT [Catalytic activity/Vol] 21 U/L Normal 14-59 [facility] Comment on above: Performed By: #### C MP #### [facility] [address] [place] [address] Dr. Tg Fierro Anion gap [Moles/Vol] 10.8 mmol/L Normal [facility] Comment on above: Performed By: #### C MP #### [facility] [address] [place] [address] Dr. Tg Fierro AST [Catalytic activity/Vol] 9 U/L Critically low 15-37 [facility] Comment on above: Performed By: #### C MP #### [facility] [address] [address] [address] Tg Fierro Bilirubin [Mass/Vol] 0.3 mg/dL Normal 0.2-1.0 [facility] Comment on above: Performed By: #### C MP #### [facility] [address] [address] [address] Tg Fierro Calcium [Mass/Vol] 9.1 mg/dL Normal 8.5-10.1 [facility] Comment on above: Performed By: #### C MP #### [facility] [address] [address] [address] Tg Fierro Chloride [Moles/Vol] 104 mmol/L Normal 98-107 [facility] Comment on above: Performed By: #### C MP #### [facility] [address] [address] [address] Tg Fierro CO2 [Moles/Vol] 28.3 mmol/L Normal 21.0-32.0 [facility] Comment on above: Performed By: #### C MP #### [facility] [address] [address] [address] Tg Fierro Creatinine [Mass/Vol] 0.86 mg/dL Normal 0.55-1.02 [facility] Comment on above: Performed By: #### C MP #### [facility] [address] [address] [address] Tg Fierro EGFR-AF NORWEGIAN >60 Normal >=60 [facility] Comment on above: Performed By: #### C MP #### [facility] [address] [address] [address] Tg Fierro EGFR-NON AF NORWEGIAN >60 Normal >=60 [facility] Comment on above: Performed By: #### C MP #### [facility] [address] [address] [address] Tg Fierro Globulin (S) [Mass/Vol] 2.7 g/dL Normal [facility] Comment on above: Performed By: #### C MP #### [facility] [address] [address] [address] Tg Fierro Glucose [Mass/Vol] 120 mg/dL Critically high 74-106 [facility] Comment on above: Performed By: #### C MP #### [facility] [address] [address] [address] Tg Fierro Potassium [Moles/Vol] 4.1 mmol/L Normal 3.5-5.1 [facility] Comment on above: Performed By: #### C MP #### [facility] [address] [address] [address] Tg Fierro Protein [Mass/Vol] 6.6 g/dL Normal 6.4-8.2 [facility] Comment on above: Performed By: #### C MP #### [facility] [address] [address] [address] Tg Fierro Sodium [Moles/Vol] 139 mmol/L Normal 136-145 [facility] Comment on above: Performed By: #### C MP #### [facility] [address] [address] [address] Tg Fierro Urea nitrogen [Mass/Vol] 13.0 mg/dL Normal 7.0-18.0 [facility] Comment on above: Performed By: #### C MP #### [facility] [address] [address] [address] Tg Fierro Urea nitrogen/Creatinine [Mass ratio] 15.1 mg/mg Normal [facility] Comment on above: Performed By: #### C MP #### [facility] [address] [address] [address] Tg Fierro PROTIMEon 09-24-2022 INR Coag (PPP) [Relative time] 1.35 {INR} Normal [facility] Comment on above: Performed By: #### P T #### [facility] [address] [address] [address] Tg Fierro INR GUIDELINES SEE BELOW Normal [facility] Comment on above: Result Comment: LAURENCE RED INR: 2.0 - 3.0 CONDITIONS NOT LISTED BELOW 2.5 - 3.5 FOR PROSTHETIC HEART VALVE REPLACEMENT 2.5 - 3.5 RECURRENT THROMBOSIS Performed By: #### P T #### [facility] [address] [place] [address] Dr. Tg Fierro PT Coag (PPP) [Time] 14.1 s Critically high 9.0-11.6 [facility] Comment on above: Performed By: #### P T #### [facility] [address] [place] [address] Dr. Tg [facility] mm/hr Normal <=30 [facility] Comment on above: Performed By: #### C MP #### [facility] [address] [place] [address] Dr. Tg Fierro PROTIMEon 09-09-2022 INR Coag (PPP) [Relative time] 1.23 {INR} Normal [facility] Comment on above: Performed By: #### P T #### [facility] [address] [place] [address] Dr. Tg Fierro INR GUIDELINES SEE BELOW Normal [facility] Comment on above: Result Comment: LAURENCE RED INR: 2.0 - 3.0 CONDITIONS NOT LISTED BELOW 2.5 - 3.5 FOR PROSTHETIC HEART VALVE REPLACEMENT 2.5 - 3.5 RECURRENT THROMBOSIS Performed By: #### P T #### [facility] [address] [place] [address] Dr. Tg Fierro PT Coag (PPP) [Time] 12.9 s Critically high 9.0-11.6 [facility] Comment on above: Performed By: #### P T #### [facility] [address] [place] [address] Dr. Tg Fierro ECHOCARDIO M/2D COMPLETEon 0 09-02-2022 ECHOCARDIO M/2D COMPLETE Patient: WILDA SEN Exam Date: 09/02/2022 : 1945 Gender:F Ordering : DR JAYME PEREZ . Admission #: [id number] Family : Order #: [id number] CLICK HERE TO VIEW EXAM ECHOCARDIOGRAM REPORT [...] Dez Bender M.D. on 09/03/2022 at 17:25 [facility] GLYCOHEMOGLOBIN A1Con 2022 ADA RECOMMENDATION SEE BELOW Normal [facility] Comment on above: Result Comment: ADA RECOMMENDED LIMIT 4.0 - 6.0 ADA THERAPEUTIC TARGET < 7.0 ACTION SUGGESTED > 7.0 Performed By: #### A 1C #### [facility] [address] [place] [address] Dr. Tg Fierro Glucose [Mass/Vol] 148 mg/dL Normal [facility] Comment on above: Performed By: #### A 1C #### [facility] [address] [place] [address] Dr. Tg Fierro HbA1c (Bld) [Mass fraction] 6.8 % Critically high 4.5-6.2 [facility] Comment on above: Performed By: #### A 1C #### [facility] [address] [place] [address] Dr. Tg Fierro CBC AUTO DIFFon 08-05-2022 BASO # 0.1 103/ul Normal 0.0-0.1 [facility] Comment on above: Performed By: #### C BC #### [facility] [address] [place] [address] Dr. Tg Fierro Basophils/100 WBC (Bld) 0.8 % Normal 0.2-2.0 [facility] Comment on above: Performed By: #### C BC #### [facility] [address] [place] [address] Dr. Tg Fierro EO # 0.5 103/ul Normal 0.0-0.7 [facility] Comment on above: Performed By: #### C BC #### [facility] [address] [place] [address] Dr. Tg Fierro Eosinophils/100 WBC (Bld) 7.3 % Critically high 0.9-7.0 [facility] Comment on above: Performed By: #### C BC #### [facility] [address] [place] [address] Dr. Tg Fierro Erythrocyte distribution width (RBC) [Ratio] 13.4 % Normal 11.0-15.0 [facility] Comment on above: Performed By: #### C BC #### [facility] [address] [place] [address] Dr. Tg Fierro Hematocrit (Bld) [Volume fraction] 37.1 % Normal 36.0-48.0 [facility] Comment on above: Performed By: #### C BC #### [facility] [address] [place] [address] Dr. Tg Fierro Hemoglobin (Bld) [Mass/Vol] 12.9 g/dL Normal 12.0-16.0 [facility] Comment on above: Performed By: #### C BC #### [facility] [address] [place] [address] Dr. Tg Fierro IG # 0.03 10e3/ul Normal 0.00-0.03 [facility] Comment on above: Performed By: #### C BC #### [facility] [address] [place] [address] Dr. Tg Fierro IG % 0.5 % Normal 0.0-0.5 [facility] Comment on above: Performed By: #### C BC #### [facility] [address] [place] [address] Dr. Tg Fierro LYMPH # 2.3 103/ul Normal 1.2-3.8 [facility] Comment on above: Performed By: #### C BC #### [facility] [address] [place] [address] Dr. Tg Fierro Lymphocytes/100 WBC (Bld) 34.9 % Normal 20.5-60.0 [facility] Comment on above: Performed By: #### C BC #### [facility] [address] [place] [address] Dr. Tg Fierro MANUAL DIFF REQ NO Normal [facility] Comment on above: Performed By: #### C BC #### [facility] [address] [place] [address] Dr. Tg Fierro MCH (RBC) [Entitic mass] 31.0 pg Normal 26.7-34.0 [facility] Comment on above: Performed By: #### C BC #### [facility] [address] [place] [address] Dr. gT Fierro MCHC (RBC) [Mass/Vol] 34.8 g/dL Normal 29.9-35.2 [facility] Comment on above: Performed By: #### C BC #### [facility] [address] [place] [address] Dr. Tg Fierro MCV (RBC) [Entitic vol] 89.2 fL Normal 81.0-99.0 [facility] Comment on above: Performed By: #### C BC #### [facility] [address] [place] [address] Dr. Tg Fierro MONO # 0.4 103/ul Normal 0.3-0.8 [facility] Comment on above: Performed By: #### C BC #### [facility] [address] [place] [address] Dr. Tg Fierro Monocytes/100 WBC (Bld) 6.1 % Normal 1.7-12.0 [facility] Comment on above: Performed By: #### C BC #### [facility] [address] [place] [address] Dr. Tg Fierro NEUT # 3.3 103/ul Normal 1.4-6.5 [facility] Comment on above: Performed By: #### C BC #### [facility] [address] [place] [address] Dr. Tg Fierro Neutrophils/100 WBC (Bld) 50.4 % Normal 43.0-75.0 [facility] Comment on above: Performed By: #### C BC #### [facility] [address] [place] [address] Dr. Tg Fierro Platelet mean volume (Bld) [Entitic vol] 8.6 fL Critically low 9.5-13.5 [facility] Comment on above: Performed By: #### C BC #### [facility] [address] [place] [address] Dr. Tg Fierro PLT 336 103/ul Normal 150-450 [facility] Comment on above: Performed By: #### C BC #### [facility] [address] [place] [address] Dr. Tg Fierro RBC 4.16 106/ul Critically low 4.20-5.40 [facility] Comment on above: Performed By: #### C BC #### [facility] [address] [place] [address] Dr. Tg Fierro WBC 6.4 103/ul Normal 4.0-11.0 [facility] Comment on above: Performed By: #### C BC #### [facility] [address] [place] [address] Dr. Tg Fierro PROF 14(COMP METB)on 023 Albumin [Mass/Vol] 3.9 g/dL Normal 3.4-5.0 [facility] Comment on above: Performed By: #### P T #### [facility] [address] [place] [address] Dr. Tg Fierro Albumin/Globulin [Mass ratio] 1.3 {ratio} Normal [facility] Comment on above: Performed By: #### P T #### [facility] [address] [place] [address] Dr. Tg Fierro ALP [Catalytic activity/Vol] 60 U/L Normal 46-116 [facility] Comment on above: Performed By: #### P T #### [facility] [address] [place] [address] Dr. Tg Fierro ALT [Catalytic activity/Vol] 21 U/L Normal 14-59 [facility] Comment on above: Performed By: #### P T #### [facility] [address] [place] [address] Dr. Tg Fierro Anion gap [Moles/Vol] 15.2 mmol/L Normal [facility] Comment on above: Performed By: #### P T #### [facility] [address] [place] [address] Dr. Tg Fierro AST [Catalytic activity/Vol] 14 U/L Critically low 15-37 [facility] Comment on above: Performed By: #### P T #### [facility] [address] [place] [address] Dr. Tg Fierro Bilirubin [Mass/Vol] 0.4 mg/dL Normal 0.2-1.0 [facility] Comment on above: Performed By: #### P T #### [facility] [address] [place] [address] Dr. Tg Fierro Calcium [Mass/Vol] 9.3 mg/dL Normal 8.5-10.1 [facility] Comment on above: Performed By: #### P T #### [facility] [address] [address] [address] Tg Fierro Chloride [Moles/Vol] 102 mmol/L Normal 98-107 [facility] Comment on above: Performed By: #### P T #### [facility] [address] [address] [address] Tg Fierro CO2 [Moles/Vol] 26.8 mmol/L Normal 21.0-32.0 [facility] Comment on above: Performed By: #### P T #### [facility] [address] [address] [address] Tg Fierro Creatinine [Mass/Vol] 0.74 mg/dL Normal 0.55-1.02 [facility] Comment on above: Performed By: #### P T #### [facility] [address] [place] [address] Dr. Tg Fierro EGFR-AF NORWEGIAN >60 Normal >=60 [facility] Comment on above: Performed By: #### P T #### [facility] [address] [place] [address] Dr. Tg Fierro EGFR-NON AF NORWEGIAN >60 Normal >=60 [facility] Comment on above: Performed By: #### P T #### [facility] [address] [address] [address] Tg Fierro Globulin (S) [Mass/Vol] 3.1 g/dL Normal [facility] Comment on above: Performed By: #### P T #### [facility] [address] [place] [address] Dr. Tg Fierro Glucose [Mass/Vol] 148 mg/dL Critically high 74-106 [facility] Comment on above: Performed By: #### P T #### [facility] [address] [place] [address] Dr. Tg Fierro Potassium [Moles/Vol] 4.0 mmol/L Normal 3.5-5.1 [facility] Comment on above: Performed By: #### P T #### [facility] [address] [place] [address] Dr. Tg Fierro Protein [Mass/Vol] 7.0 g/dL Normal 6.4-8.2 [facility] Comment on above: Performed By: #### P T #### [facility] [address] [place] [address] Dr. Tg Fierro Sodium [Moles/Vol] 140 mmol/L Normal 136-145 [facility] Comment on above: Performed By: #### P T #### [facility] [address] [place] [address] Dr. Tg Fierro Urea nitrogen [Mass/Vol] 12.0 mg/dL Normal 7.0-18.0 [facility] Comment on above: Performed By: #### P T #### [facility] [address] [place] [address] Dr. Tg Fierro Urea nitrogen/Creatinine [Mass ratio] 16.2 mg/mg Normal [facility] Comment on above: Performed By: #### P T #### [facility] [address] [place] [address] Dr. Tg Fier[facility] 30 mm/hr Normal <=30 [facility] Comment on above: Performed By: #### S EDR #### [facility] [address] [place] [address] Dr. Tg Fierro CBC AUTO DIFFon 04-15-2022 BASO # 0.1 103/ul Normal 0.0-0.1 [facility] Comment on above: Performed By: #### C BC #### [facility] [address] [place] [address] Dr. Tg Fierro Basophils/100 WBC (Bld) 0.6 % Normal 0.2-2.0 [facility] Comment on above: Performed By: #### C BC #### [facility] [address] [place] [address] Dr. Tg Fierro EO # 0.2 103/ul Normal 0.0-0.7 [facility] Comment on above: Performed By: #### C BC #### [facility] [address] [place] [address] Dr. Tg Fierro Eosinophils/100 WBC (Bld) 3.1 % Normal 0.9-7.0 [facility] Comment on above: Performed By: #### C BC #### [facility] [address] [place] [address] Dr. gT Fierro Erythrocyte distribution width (RBC) [Ratio] 13.6 % Normal 11.0-15.0 [facility] Comment on above: Performed By: #### C BC #### [facility] [address] [place] [address] Dr. Tg Fierro Hematocrit (Bld) [Volume fraction] 42.3 % Normal 36.0-48.0 [facility] Comment on above: Performed By: #### C BC #### [facility] [address] [place] [address] Dr. Tg Fierro Hemoglobin (Bld) [Mass/Vol] 13.2 g/dL Normal 12.0-16.0 [facility] Comment on above: Performed By: #### C BC #### [facility] [address] [place] [address] Dr. Tg Fierro IG # 0.04 10e3/ul Critically high 0.00-0.[address] [facility] Comment on above: Performed By: #### C BC #### [facility] [address] [place] [address] Dr. Tg Fierro IG % 0.5 % Normal 0.0-0.5 [facility] Comment on above: Performed By: #### C BC #### [facility] [address] [place] [address] Dr. Tg Fierro LYMPH # 2.5 103/ul Normal 1.2-3.8 [facility] Comment on above: Performed By: #### C BC #### [facility] [address] [place] [address] Dr. Tg Fierro Lymphocytes/100 WBC (Bld) 31.6 % Normal 20.5-60.0 [facility] Comment on above: Performed By: #### C BC #### [facility] [address] [place] [address] Dr. Tg Fierro MANUAL DIFF REQ NO Normal [facility] Comment on above: Performed By: #### C BC #### [facility] [address] [place] [address] Dr. Tg Fierro MCH (RBC) [Entitic mass] 30.3 pg Normal 26.7-34.0 [facility] Comment on above: Performed By: #### C BC #### [facility] [address] [place] [address] Dr. Tg Fierro MCHC (RBC) [Mass/Vol] 31.2 g/dL Normal 29.9-35.2 [facility] Comment on above: Performed By: #### C BC #### [facility] [facility] [address] [place] [address] Dr. Tg Fierro MCV (RBC) [Entitic vol] 97.0 fL Normal 81.0-99.0 [facility] Comment on above: Performed By: #### C BC #### [facility] [address] [place] [address] Dr. Tg Fierro MONO # 0.5 103/ul Normal 0.3-0.8 [facility] Comment on above: Performed By: #### C BC #### [facility] [address] [place] [address] Dr. Tg Fierro Monocytes/100 WBC (Bld) 6.3 % Normal 1.7-12.0 [facility] Comment on above: Performed By: #### C BC #### [facility] [address] [place] [address] Dr. Tg Fierro NEUT # 4.5 103/ul Normal 1.4-6.5 [facility] Comment on above: Performed By: #### C BC #### [facility] [address] [place] [address] Dr. Tg Fierro Neutrophils/100 WBC (Bld) 57.9 % Normal 43.0-75.0 [facility] Comment on above: Performed By: #### C BC #### [facility] [address] [place] [address] Dr. Tg Fierro Platelet mean volume (Bld) [Entitic vol] 8.6 fL Critically low 9.5-13.5 [facility] Comment on above: Performed By: #### C BC #### [facility] [address] [place] [address] Dr. Tg Fierro PLT 295 103/ul Normal 150-450 [facility] Comment on above: Performed By: #### C BC #### [facility] [address] [place] [address] Dr. Tg Fierro RBC 4.36 106/ul Normal 4.20-5.40 [facility] Comment on above: Performed By: #### C BC #### [facility] [address] [place] [address] Dr. Tg Fierro WBC 7.8 103/ul Normal 4.0-11.0 [facility] Comment on above: Performed By: #### C BC #### [facility] [address] [place] [address] Dr. Tg Fierro PROF 14(COMP METB)on 022 Albumin [Mass/Vol] 4.5 g/dL Normal 3.4-5.0 [facility] Comment on above: Performed By: #### C MP #### [facility] [address] [place] [address] Dr. Tg Fierro Albumin/Globulin [Mass ratio] 1.5 {ratio} Normal [facility] Comment on above: Performed By: #### C MP #### [facility] [address] [place] [address] Dr. Tg Fierro ALP [Catalytic activity/Vol] 62 U/L Normal 46-116 [facility] Comment on above: Performed By: #### C MP #### [facility] [address] [place] [address] Dr. Tg Fierro ALT [Catalytic activity/Vol] 25 U/L Normal 14-59 [facility] Comment on above: Performed By: #### C MP #### [facility] [address] [place] [address] Dr. Tg Fierro Anion gap [Moles/Vol] 10.6 mmol/L Normal [facility] Comment on above: Performed By: #### C MP #### [facility] [address] [address] [address] Tg Fierro AST [Catalytic activity/Vol] 12 U/L Critically low 15-37 [facility] Comment on above: Performed By: #### C MP #### [facility] [address] [address] [address] Tg Fierro Bilirubin [Mass/Vol] 0.5 mg/dL Normal 0.2-1.0 [facility] Comment on above: Performed By: #### C MP #### [facility] [address] [address] [address] Tg Fierro Calcium [Mass/Vol] 9.8 mg/dL Normal 8.5-10.1 [facility] Comment on above: Performed By: #### C MP #### [facility] [address] [address] [address] Tg Fierro Chloride [Moles/Vol] 102 mmol/L Normal 98-107 [facility] Comment on above: Performed By: #### C MP #### [facility] [address] [address] [address] Tg Fierro CO2 [Moles/Vol] 31.8 mmol/L Normal 21.0-32.0 [facility] Comment on above: Performed By: #### C MP #### [facility] [address] [address] [address] Tg Fierro Creatinine [Mass/Vol] 0.88 mg/dL Normal 0.55-1.02 [facility] Comment on above: Performed By: #### C MP #### [facility] [address] [address] [address] Tg Fierro EGFR-AF NORWEGIAN >60 Normal >=60 [facility] Comment on above: Performed By: #### C MP #### [facility] [address] [address] [address] Tg Fierro EGFR-NON AF NORWEGIAN >60 Normal >=60 [facility] Comment on above: Performed By: #### C MP #### [facility] [address] [address] [address] Tg Fierro Globulin (S) [Mass/Vol] 3.1 g/dL Normal [facility] Comment on above: Performed By: #### C MP #### [facility] [address] [address] [address] Tg Fierro Glucose [Mass/Vol] 187 mg/dL Critically high 74-106 T [facility] Comment on above: Performed By: #### C MP #### [facility] [address] [address] [address] Tg Fierro Potassium [Moles/Vol] 4.4 mmol/L Normal 3.5-5.1 [facility] Comment on above: Performed By: #### C MP #### [facility] [address] [address] [address] Tg Fierro Protein [Mass/Vol] 7.6 g/dL Normal 6.4-8.2 [facility] Comment on above: Performed By: #### C MP #### [facility] [address] [address] [address] Tg Fierro Sodium [Moles/Vol] 140 mmol/L Normal 136-145 [facility] Comment on above: Performed By: #### C MP #### [facility] [address] [address] [address] Tg Fierro Urea nitrogen [Mass/Vol] 14.0 mg/dL Normal 7.0-18.0 [facility] Comment on above: Performed By: #### C MP #### [facility] [address] [address] [address] Tg Fierro Urea nitrogen/Creatinine [Mass ratio] 15.9 mg/mg Normal [facility] Comment on above: Performed By: #### C MP #### [facility] [address] [address] [address] Tg Fierro SED RATE [facility] 2021 SED RATE 5 mm/hr Normal <=30 [facility] Comment on above: Performed By: #### S EDR #### [facility] [address] [address] [address] Tg Fierro CBC AUTO DIFFon 02-07-2022 BASO # 0.0 103/ul Normal 0.0-0.1 [facility] Comment on above: Performed By: #### P T #### [facility] [address] [place] [address] Dr. Tg Fierro Basophils/100 WBC (Bld) 0.6 % Normal 0.2-2.0 [facility] Comment on above: Performed By: #### P T #### [facility] [address] [place] [address] Dr. Tg Fierro EO # 0.4 103/ul Normal 0.0-0.7 [facility] Comment on above: Performed By: #### P T #### [facility] [address] [place] [address] Dr. Tg Fierro Eosinophils/100 WBC (Bld) 5.4 % Normal 0.9-7.0 [facility] Comment on above: Performed By: #### P T #### [facility] [address] [place] [address] Dr. Tg Fierro Erythrocyte distribution width (RBC) [Ratio] 13.5 % Normal 11.0-15.0 [facility] Comment on above: Performed By: #### P T #### [facility] [address] [place] [address] Dr. Tg Fierro Hematocrit (Bld) [Volume fraction] 39.4 % Normal 36.0-48.0 [facility] Comment on above: Performed By: #### P T #### [facility] [address] [place] [address] Dr. Tg Fierro Hemoglobin (Bld) [Mass/Vol] 12.8 g/dL Normal 12.0-16.0 [facility] Comment on above: Performed By: #### P T #### [facility] [address] [place] [address] Dr. Tg Fierro IG # 0.02 10e3/ul Normal 0.00-0.03 [facility] Comment on above: Performed By: #### P T #### [facility] [address] [place] [address] Dr. Tg Fierro IG % 0.3 % Normal 0.0-0.5 [facility] Comment on above: Performed By: #### P T #### [facility] [address] [place] [address] Dr. Tg Fierro LYMPH # 2.4 103/ul Normal 1.2-3.8 [facility] Comment on above: Performed By: #### P T #### [facility] [address] [place] [address] Dr. Tg Fierro Lymphocytes/100 WBC (Bld) 36.2 % Normal 20.5-60.0 [facility] Comment on above: Performed By: #### P T #### [facility] [address] [place] [address] Dr. Tg Fierro MANUAL DIFF REQ NO Normal [facility] Comment on above: Performed By: #### P T #### [facility] [address] [place] [address] Dr. Tg Fierro MCH (RBC) [Entitic mass] 31.0 pg Normal 26.7-34.0 [facility] Comment on above: Performed By: #### P T #### [facility] [address] [place] [address] Dr. Tg Fierro MCHC (RBC) [Mass/Vol] 32.5 g/dL Normal 29.9-35.2 [facility] Comment on above: Performed By: #### P T #### [facility] [address] [place] [address] Dr. Tg Fierro MCV (RBC) [Entitic vol] 95.4 fL Normal 81.0-99.0 [facility] Comment on above: Performed By: #### P T #### [facility] [address] [place] [address] Dr. Tg Fierro MONO # 0.5 103/ul Normal 0.3-0.8 [facility] Comment on above: Performed By: #### P T #### [facility] [address] [place] [address] Dr. Tg Fierro Monocytes/100 WBC (Bld) 8.0 % Normal 1.7-12.0 [facility] Comment on above: Performed By: #### P T #### [facility] [address] [place] [address] Dr. Tg Fierro NEUT # 3.3 103/ul Normal 1.4-6.5 [facility] Comment on above: Performed By: #### P T #### [facility] [address] [place] [address] Dr. Tg Fierro Neutrophils/100 WBC (Bld) 49.5 % Normal 43.0-75.0 [facility] Comment on above: Performed By: #### P T #### [facility] [address] [place] [address] Dr. Tg Fierro Platelet mean volume (Bld) [Entitic vol] 8.7 fL Critically low 9.5-13.5 [facility] Comment on above: Performed By: #### P T #### [facility] [address] [place] [address] Dr. Tg Fierro PLT 276 103/ul Normal 150-450 [facility] Comment on above: Performed By: #### P T #### [facility] [address] [place] [address] Dr. Tg Fierro RBC 4.13 106/ul Critically low 4.20-5.40 [facility] Comment on above: Performed By: #### P T #### [facility] [address] [place] [address] Dr. Tg Fierro WBC 6.7 103/ul Normal 4.0-11.0 [facility] Comment on above: Performed By: #### P T #### [facility] [address] [place] [address] Dr. Tg Fierro GLYCOHEMOGLOBIN A1Con 2021 ADA RECOMMENDATION SEE BELOW Normal [facility] Comment on above: Result Comment: ADA RECOMMENDED LIMIT 4.0 - 6.0 ADA THERAPEUTIC TARGET < 7.0 ACTION SUGGESTED > 7.0 Performed By: #### A 1C #### [facility] [address] [place] [address] Dr. Tg Fierro Glucose [Mass/Vol] 151 mg/dL Normal [facility] Comment on above: Performed By: #### A 1C #### [facility] [address] [place] [address] Dr. Tg Fierro HbA1c (Bld) [Mass fraction] 6.9 % Critically high 4.5-6.2 [facility] Comment on above: Performed By: #### A 1C #### [facility] [address] [place] [address] Dr. Tg Fierro PROF 14(COMP METB)on 022 Albumin [Mass/Vol] 3.8 g/dL Normal 3.4-5.0 [facility] Comment on above: Performed By: #### P T #### [facility] [address] [place] [address] Dr. Tg Fierro Albumin/Globulin [Mass ratio] 1.3 {ratio} Normal [facility] Comment on above: Performed By: #### P T #### [facility] [address] [place] [address] Dr. Tg Fierro ALP [Catalytic activity/Vol] 43 U/L Critically low 46-116 [facility] Comment on above: Performed By: #### P T #### [facility] [address] [place] [address] Dr. Tg Fierro ALT [Catalytic activity/Vol] 19 U/L Normal 14-59 [facility] Comment on above: Performed By: #### P T #### [facility] [address] [place] [address] Dr. Tg Fierro Anion gap [Moles/Vol] 13.7 mmol/L Normal [facility] Comment on above: Performed By: #### P T #### [facility] [address] [place] [address] Dr. Tg Fierro AST [Catalytic activity/Vol] 11 U/L Critically low 15-37 [facility] Comment on above: Performed By: #### P T #### [facility] [address] [address] [address] Tg Fierro Bilirubin [Mass/Vol] 0.4 mg/dL Normal 0.2-1.0 [facility] Comment on above: Performed By: #### P T #### [facility] [address] [place] [address] Dr. Tg Fierro Calcium [Mass/Vol] 9.1 mg/dL Normal 8.5-10.1 [facility] Comment on above: Performed By: #### P T #### [facility] [address] [place] [address] Dr. Tg Fierro Chloride [Moles/Vol] 104 mmol/L Normal 98-107 [facility] Comment on above: Performed By: #### P T #### [facility] [address] [place] [address] Dr. Tg Fierro CO2 [Moles/Vol] 28.5 mmol/L Normal 21.0-32.0 [facility] Comment on above: Performed By: #### P T #### [facility] [address] [place] [address] Dr. Tg Fierro Creatinine [Mass/Vol] 0.77 mg/dL Normal 0.55-1.02 [facility] Comment on above: Performed By: #### P T #### [facility] [address] [place] [address] Dr. Tg Fierro EGFR-AF NORWEGIAN >60 Normal >=60 [facility] Comment on above: Performed By: #### P T #### [facility] [address] [place] [address] Dr. Tg Fierro EGFR-NON AF NORWEGIAN >60 Normal >=60 [facility] Comment on above: Performed By: #### P T #### [facility] [address] [place] [address] Dr. Tg Fierro Globulin (S) [Mass/Vol] 3.0 g/dL Normal [facility] Comment on above: Performed By: #### P T #### [facility] [address] [place] [address] Dr. Tg Fierro Glucose [Mass/Vol] 124 mg/dL Critically high 74-106 T [facility] Comment on above: Performed By: #### P T #### [facility] [address] [address] [address] Tg Fierro Potassium [Moles/Vol] 4.2 mmol/L Normal 3.5-5.1 [facility] Comment on above: Performed By: #### P T #### [facility] [address] [address] [address] Tg Fierro Protein [Mass/Vol] 6.8 g/dL Normal 6.4-8.2 [facility] Comment on above: Performed By: #### P T #### [facility] [address] [address] [address] Tg Fierro Sodium [Moles/Vol] 142 mmol/L Normal 136-145 [facility] Comment on above: Performed By: #### P T #### [facility] [address] [address] [address] Tg Fierro Urea nitrogen [Mass/Vol] 12.0 mg/dL Normal 7.0-18.0 [facility] Comment on above: Performed By: #### P T #### [facility] [address] [address] [address] Tg Fierro Urea nitrogen/Creatinine [Mass ratio] 15.6 mg/mg Normal [facility] Comment on above: Performed By: #### P T #### [facility] [address] [address] [address] Tg Fierro SED RATE [facility] 2021 SED RATE 8 mm/hr Normal <=30 [facility] Comment on above: Performed By: #### C MP #### [facility] [address] [address] [address] Tg Fierro COVID Quick Testingon 2020 Result Positive [id number] Other Vital Signs Date Time Vital Sign Value Performing Clinician Facility 07-12-2024 11:03-0500 Diastolic blood pressure 66 mm[Hg] Williams SHEPHERD [facility] 07-12-2024 11:03-0500 Heart rate 77 /min Williams CORA [facility] 07-12-2024 11:03-0500 Systolic blood pressure 131 mm[Hg] Williams CORA [facility] 04-15-2024 14:16-0400 Body height 160 cm Jayme Perez MD Work Phone: [facility] 04-15-2024 14:16-0400 Body mass index (BMI) [Ratio] 21.79 kg/m2 Jayme Perez MD Work Phone: [facility] 04-15-2024 14:16-0400 Body weight 55.79 kg Jayme Perez MD Work Phone: [facility] 04-15-2024 14:16-0400 Diastolic blood pressure 70 mm[Hg] Jayme Perez MD Work Phone: [facility] 04-15-2024 14:16-0400 Heart rate 87 /min Jayme Perez MD Work Phone: [facility] 04-15-2024 14:16-0400 SaO2% (BldA) [Mass fraction] 98 % Jayme Perez MD Work Phone: [facility] 04-15-2024 14:16-0400 Systolic blood pressure 120 mm[Hg] Jayme Perez MD Work Phone: [facility] 10-14-2023 09:09-0400 Body temperature 98.6 [degF] Williams CORA [facility] 10-14-2023 09:09-0400 Diastolic blood pressure 61 mm[Hg] Williams CORA [facility] 10-14-2023 09:09-0400 Heart rate 80 /min Williams SHEPHERD [facility] 10-14-2023 09:09-0400 Respiratory rate 16 /min Williams SHEPHERD [facility] 10-14-2023 09:09-0400 Systolic blood pressure 115 mm[Hg] Williams SHEPHERD [facility] 08-13-2023 10:47-0500 Blood Pressure Location Renato SANTACRUZ [facility] 08-13-2023 10:47-0500 Diastolic blood pressure 62 mm[Hg] Renato SANTACRUZ [facility] 08-13-2023 10:47-0500 Heart rate 82 /min Renatopower SANTACRUZ [facility] 08-13-2023 10:47-0500 Respiratory rate 16 /min Renato SANTACRUZ [facility] 08-13-2023 10:47-0500 Systolic blood pressure 105 mm[Hg] Renato SANTACRUZ [facility] 08-07-2023 09:48-0500 Body height 160 cm Jayme Perez MD Work Phone: [facility] 08-07-2023 09:48-0500 Body mass index (BMI) [Ratio] 24.45 kg/m2 Jayme Perez MD Work Phone: [facility] 08-07-2023 09:48-0500 Body weight 62.6 kg Jayme Perez MD Work Phone: [facility] 08-07-2023 09:48-0500 Heart rate 57 /min Jayme Perez MD Work Phone: [facility] 08-07-2023 09:48-0500 SaO2% (BldA) [Mass fraction] 98 % Jayme Perez MD Work Phone: [facility] 07-25-2023 09:20-0500 Body height 160.02 cm Lou Glover Other [email or web address] Other 07-25-2023 09:20-0500 Body mass index (BMI) [Ratio] 23.91 kg/m2 Lou Glover Other [facility] Other 07-25-2023 09:20-0500 Body temperature 97.7 [degF] Lou Glover Other [facility] Other 07-25-2023 09:20-0500 Body weight 61.24 kg Lou Glover Other [employer] Other 07-25-2023 09:20-0500 Diastolic blood pressure 74 mm[Hg] Lou Glover Other [facility] Other 07-25-2023 09:20-0500 Respiratory rate 18 /min Lou Glover Other [employer] Other 07-25-2023 09:20-0500 SaO2% (BldA) [Mass fraction] 96 % Lou Glover Other [employer] Other 07-25-2023 09:20-0500 Systolic blood pressure 120 mm[Hg] Lou Glover Other [employer] Other 03-26-2023 13:15-0400 Body height 160.02 cm MD Jayme Perez Work Phone: [facility] 03-26-2023 13:15-0400 Body temperature 98.2 [degF] MD Jayme Perez Work Phone: [facility] 03-26-2023 13:15-0400 Body weight 66 kg MD Jayme Perez Work Phone: [facility] 03-26-2023 13:15-0400 Diastolic blood pressure 71 mm[Hg] MD Jayme Perez Work Phone: [facility] 03-26-2023 13:15-0400 Heart rate 87 /min MD Jayme Perez Work Phone: [facility] 03-26-2023 13:15-0400 Respiratory rate 16 /min MD Jayme Perez Work Phone: [facility] 03-26-2023 13:15-0400 SaO2% (BldA) [Mass fraction] 97 % MD Jayme Perez Work Phone: [facility] 03-26-2023 13:15-0400 Systolic blood pressure 117 mm[Hg] MD Jayme Perez Work Phone: [facility] 05-21-2021 13:15-0500 Body height 160.02 cm Astrid Baker Other [employer] Other 05-21-2021 13:15-0500 Body mass index (BMI) [Ratio] 23.91 kg/m2 Astrid Baker Other [employer] Other 05-21-2021 13:15-0500 Body temperature 97.3 [degF] Astrid Baker Other [employer] Other 05-21-2021 13:15-0500 Body weight 61.24 kg Astrid Baker Other [employer] Other 05-21-2021 13:15-0500 SaO2% (BldA) [Mass fraction] 94 % Astrid Baker Other [facility] [employer] Other Encounters Encounter Date Encounter Type Care Provider Facility Start: 08-17-2024 End: 08-17-2024 Clinisync Result Encounter Jayme Perez MD Work Phone: [facility] External [facility] Unsolicited Start: 08-17-2024 End: 08-17-2024 Clinisync Result Encounter Jayme Perez MD Work Phone: [facility] External [facility] Unsolicited Start: 08-04-2024 End: 08-04-2024 Bamboo flowsheet Felicia Farmer DO Work Phone: [facility] Start: 08-04-2024 End: 08-04-2024 Bamboo flowsheet Felicia Farmer DO Work Phone: [facility] Start: 08-04-2024 End: 08-04-2024 ambulatory FELICIA FARMER Not Available Start: 07-19-2024 End: 07-19-2024 Clinisync Result Encounter Jayme Perez MD Work Phone: [facility] External Department Unsolicited Start: 07-19-2024 End: 07-19-2024 Clinisync Result Encounter Jayme Perez MD Work Phone: [facility] External Department Unsolicited Start: 07-12-2024 End: 07-12-2024 ambulatory Williams SHEPHERD Facility:[facility] Start: 07-12-2024 End: 07-12-2024 Patient encounter procedure Williams SHEPHERD [facility] Start: 07-01-2024 End: 07-01-2024 Clinisync Result Encounter [...] Paroxysmal atrial fi brillation (CMS/HCC) (Primary Dx); 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; Type 2 diabetes [...] Phone: [facility] [address] Work Phone: Start: 03-31-2024 End: 03-31-2024 ambulatory MD Jayme Perez Work Phone: [facility] Work Phone: Start: 03-29-2024 End: 03-29-2024 Clinisync Result Encounter Generic External Data Provider [facility] External [facility] Unsolicited Start: 03-29-2024 End: 03-29-2024 Clinisync Result Encounter Generic External Data Provider [facility] External [facility] Unsolicited Start: 03-25-2024 End: 03-25-2024 Refill Jayme Perez MD Work Phone: [facility] Comment on above: Type 2 diabetes nancie itus with stage 3a chronic kidney disease, without long-term current use of insulin (HCC) ([facility]) Start: 03-17-2024 End: 03-17-2024 Clinisync Result Encounter Jayme Perez MD Work Phone: [facility] External Department Unsolicited Start: 03-17-2024 End: 03-17-2024 Clinisync Result Encounter Jayme Perez MD Work Phone: [facility] External Department Unsolicited Start: 12-31-2023 End: 12-31-2023 ambulatory FELICIA FARMER Not Available Start: 10-14-2023 End: 10-14-2023 ambulatory Williams SHEPHERD Facility:[facility] Start: 10-14-2023 End: 10-14-2023 Patient encounter procedure Williams Venegas CORA [facility] Start: 09-01-2023 End: 09-01-2023 ambulatory FELICIA Mejias HILLARY Not Available Start: 08-20-2023 Clinisync Result Encounter Generic External Data Provider [facility] External Department Unsolicited Start: 08-20-2023 Clinisync Result Encounter Generic External Data Provider [facility] External Department Unsolicited Start: 08-13-2023 End: 08-14-2023 ambulatory Renato SANTACRUZ Facility:CD:[id number] Start: 08-13-2023 End: 08-13-2023 Patient encounter procedure Renato SANTACRUZ [facility] Start: 08-07-2023 End: 08-07-2023 Office outpatient visit 25 minutes Jayme Perez MD Work Phone: [facility] Comment on above: Chronic diastolic he art failure (CMS/HCC) (Primary Dx); 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 (CMS/HCC); Type 2 diabetes mellitus with stage 3a chronic kidney disease, without long-term current use of insulin (HCC) (CMS/HCC); Stage 3a chronic kidney disease (HCC) (CMS/HCC); Microalbuminuria; Former smoker; 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, adult; shelter current use of anticoagulant; Psoriatic arthropathy (CMS/HCC); Gastroesophageal reflux disease without esophagitis Start: 08-07-2023 End: 08-07-2023 ambulatory JAYME PEREZ Not Available Start: 07-25-2023 End: 07-25-2023 ambulatory Lou Glover Other [email or web address] Other Start: 07-25-2023 Office outpatient vi sit 25 minutes Lou Glover [facility] Start: 04-07-2023 End: 04-07-2023 ambulatory MD Jayme Perez Work Phone: [facility] Work Phone: Start: 04-07-2023 End: 04-07-2023 Departed Referred MD Jayme Perez Work Phone: [facility]-Surgery Center [facility] [place] Start: 03-26-2023 End: 03-26-2023 Patient encounter procedure MD Jayme Perez Work Phone: [facility]-Pre-Surgical Testing Work Phone: Start: 03-20-2023 End: 03-20-2023 Lab Drop off Williams SHEPHERD [facility] Start: 03-20-2023 End: 03-20-2023 Patient encounter procedure Williams SHEPHERD [facility] Start: 11-11-2022 End: 12-11-[address] JAYME [...] 05-21-2021 End: 05-21-2021 ambulatory Astrid Olivia Other [place] [employer] Other Start: 05-21-2021 Office outpatient vi sit 15 minutes Astrid Baker [facility] Procedures Date Procedure Procedure Detail Performing Clinician Start: 08-17-2024 SRMCOH PROTHROMBIN T GERALD INR W/O COUM Jayme Perez MD Work Phone: Start: 08-04-2024 Computerized ophthal omar imaging optic [...] Jayme Perez MD Work Phone: Start: 04-22-2024 [facility] Jayme Perez MD Work Phone: Start: [...] External Data Provider Start: 08-14-2023 Lithotripsy Williams [employer] Start: 08-26-2019 Extracorporeal shock wave lithotripsy of [...] 08-04-2026 Glaucoma screening Diabetes: R etinopathy Screening [facility] Start: 12-30-2025 Glaucoma screening Diabetes: R etinopathy Screening [facility] Start: 05-19-2025 Glaucoma screening Diabetes: R etinopathy Screening [facility] Start: 02-02-2025 End: 02-02-2025 Patient encounter procedure 02/02/2025 1:30 PM EDT Office Visit [facility] [address] [place] [address] Felicia Farmer DO [address] [place] [address] [facility] Start: 10-14-2024 End: 04-15-2025 T3, reverse T3, reverse Lab Routine Chronic fatigue Expected: 10/14/2024 (Approximate), Expires: 04/15/2025 [facility] Comment on above: Expected: 10/14/2024 (Approximate), Expires: 04/15/2025 Start: 10-14-2024 End: 04-15-2025 Thyrotropin [Units/volume] in Serum or Plasma TSH Lab Routine Chronic fatigue Expected: 10/14/2024 (Approximate), Expires: 04/15/2025 [facility] Comment on above: Expected: 10/14/2024 (Approximate), Expires: 04/15/2025 Start: 10-14-2024 End: 04-15-2025 Thyroxine (T4) free [Mass/volume] in Serum or Plasma T4, free Lab Routine Chronic fatigue Expected: 10/14/2024 (Approximate), Expires: 04/15/2025 [facility] Comment on above: Expected: 10/14/2024 (Approximate), Expires: 04/15/2025 Start: 10-14-2024 End: 04-15-2025 Triiodothyronine (T3) [Mass/volume] in Serum or Plasma T3 Lab Routine Chronic fatigue Expected: 10/14/2024 (Approximate), Expires: 04/15/2025 [facility] Work Phone: Comment on above: Expected: 10/14/2024 (Approximate), Expires: 04/15/2025 Start: 10-14-2024 End: 04-15-2025 Triiodothyronine (T3) Free [Mass/volume] in Serum or Plasma T3, free Lab Routine Chronic fatigue Expected: 10/14/2024 (Approximate), Expires: 04/15/2025 [facility] Comment on above: Expected: 10/14/2024 (Approximate), Expires: 04/15/2025 Start: 08-04-2024 End: 08-04-2024 Patient encounter procedure [facility] Comment on above: Arrived Start: 05-22-2024 Medicare Annual Well ness (AWV) Medicare Annual Wellness (AWV) [facility] Start: 04-15-2024 End: 04-15-2024 Patient encounter procedure 04/15/2024 2:30 PM EDT Office Visit [facility] [address] [facility] [address] [place] [address] Jayme Perez MD [address] [place] [address] [facility] Start: 03-14-2024 Influenza vaccination Influenza Vacc ine (#1) [facility] Start: 10-26-2023 Urine screening for protein Diabetes: Urine Protein Screening [facility] Start: 09-01-2023 End: 09-01-2023 Patient encounter procedure 09/01/2023 10:30 AM EST Office Visit [facility] [address] [place] [phone] Felicia Farmer, [address] [place] [address] [facility] Start: 05-06-2023 Hemoglobin A1c measurement Sharmin betes: Hemoglobin A1C [facility] Start: 04-07-2023 Abdomen endoscopy OR Cysto/Retro/Stent/Ston e/Holmium Laser (Right) [facility] Start: 03-14-2023 Influenza vaccination Influenza Vacc ine (#1) [facility] Start: 09-12-2020 Urine screening for protein Diabetes: Urine Protein Screening [facility] Start: 1951 Pneumococcal Vaccine : 65+ Years (1 - PCV) Pneumococcal Vaccine: 65+ Years (1 - PCV) [facility] Start: 1951 Pneumococcal Vaccine : 65+ Years (1 of 2 - PCV) Pneumococcal Vaccine: 65+ Years (1 of 2 - PCV) [facility] Immunizations Immunization Date Immunization Notes Care Provider Yaya oswald NEGATED: Highlighted row has not occurred!08-13-2023 influenza virus vaccine, unspecified formulation Renatopower SANTACRUZ [facility] NEGATED: Highlighted row has not occurred!08-13-2023 SARS-CoV-2 mRNA (tozinameran 5y-11y) vaccine Renato SANTACRUZ [facility] NEGATED: Highlighted row has not occurred!09-21-2019 influenza virus vaccine, live, attenuated, for intranasal use Williams Classana [facility] NEGATED: Highlighted row has not occurred!08-20-2019 influenza virus vaccine, live, attenuated, for intranasal use [employer] [facility] Payers Date Payer Category Payer Self-pay [id number] 2023 Private Health Insurance [id number] 2022 Unknown [place] [employer] [id number] 2022-Present [address] [address] [place] [address] [id number] 2022 Medicare [id number] 2.16.840.1.183869.19 2002 Medicare [id number]. 1.13.693 .[id number] 1959 Medicare [id number] 2.16.840.1.318419.19 1959 Unknown [id number] 1946 Unknown [id number] 2.16.840.1.037165.3.579 .2.593 1946 Unknown [id number] 2.16.840.1.884346.3.579 .2.593 1946 Unknown [id number] 2.16.840.1.105564.3.579 .2.593 1946 Unknown [id number] 2.16.840.1.284547.3.579 .2.593 1946 Unknown [id number] 2.16.840.1.944536.3.579 .2.593 1946 Unknown [id number] 2.16.840.1.056518.3.579 .2.593 1946 Unknown [id number] 2.16.840.1.653013.3.579 .2.593 1946 Unknown [id number] 2.16.840.1.698706.3.579 .2.593 1946 Unknown [id number] 2.16.840.1.136042.3.579 .2.593 1946 Unknown [id number] 2.16.840.1.332399.3.579 .2.593 1946 Unknown [id number] 2.16.840.1.271272.3.579 .2.593 1946 Unknown [id number] 2.16.840.1.421762.3.579 .2.593 1946 Unknown [id number] 2.16.840.1.570934.3.579 .2.593 1946 Unknown [id number] 2.16.840.1.517499.3.579 .2.727 1946 Unknown [id number] 2.16.840.1.925394.3.579 .2.727 1946 Unknown [id number] 2.16.840.1.027037.3.579 .2.727 1946 Unknown [id number] 2.16.840.1.026268.3.579 .2.727 1946 Unknown [id number] 2.16.840.1.904801.3.579 .2.1259 1946 Unknown [id number] 2.16.840.1.094027.3.579 .2.1259 1946 Unknown [id number] 2.16.840.1.593738.3.579 .2.1259 1946 Unknown [id number] 2.16.840.1.868158.3.579 .2.1259 1946 Unknown [id number] 2.16.840.1.929849.3.579 .2.1259 Unknown [id number] 2.16.840.1.252219.3.579 .2.531 Social History Date Type Detail Facility Sex Assigned At [email or web address] Other Start: 02-03-2023 End: 04-15-2024 Tobacco smoking status Ex-smoker (finding) [facility] Tobacco smoking status Never [facility] Start: 12-11-2022 End: 04-08-2024 Sex Assigned At Female [facility] Start: 1945 Sex Assigned At Female [facility] End: 07-14-1986 History of tobacco [...] Facility 07-12-2024 Functional Status N/A [facility] 10-14-2023 Functional Status N/A [facility] 08-13-2023 Functional Status N/A [facility] Clinical Notes 02-21-2022 to 08-04-2024 Felicia Farmer DO - 08/04/2024 1:00 PM EST Note Date & Type Note Facility 08-04-2024 History of Presen t illness Narrative Images from the original note were not included. Assessment/Plan Diagnoses and all orders for this visit: Type 2 diabetes mellitus without complication, without long-term current use of insulin ([facility]) - Diabetes Mellitus without sign of diabetic [...] scrubs were recommended. documented in this encounter [facility] 08-04-2024 Evaluation note Diagnosis Glaucoma suspect of both eyes- Primary Unspecified preglaucoma Type 2 diabetes mellitus with stage 3a chronic kidney disease, without long-term current use of insulin (HCC) ([facility]) Dry eyes Unspecified tear film insufficiency Blepharitis of upper and lower eyelids of both eyes, unspecified type documented in this encounter [facility] [id number] Hospital Discharge instructions Patient Education 07/12/2024 11:44:44 [...] include: ?8 oz (237 mL) of milk, zsskkee-lkppwwcvwovy-vxttr milk, and calcium- fortifiedfruit juice. Calcium-fortified means [...] ?Spinach (cooked), rhubarb, beets, sweet potatoes, and American chard. ?Peanuts. ?Potato chips, dutch fries, and baked potatoes with skin on. ?Nuts and nut products. ?Chocolate. If you regularly take a diuretic medicine, make sure to eat at least 1 or 2 servings of fruits or vegetables that are high in potassium each day. These include: ?Avocado. ?Banana. ?Bradley, prune, carrot, or tomato juice. ?Baked potato. [...] magnesium, fish oil, or vitamin B6. Take lwop-iiq-vvpygzs and prescription medicines only as told by [...] Casseroles. Pizza. Lasagna. Frozen meals. Potato chips. Grenadian fries. The items listed above may not [...] provider. Document Revised: 10/10/2022 Document Reviewed: 10/10/2022 [employer] Patient Education 2023 [employer]. Follow Up Care 02/03/2023 12:01:32 With:CORA AGUIAR, Williams Venegas, URL Address: [address] [place], [place] [id number]- When: Unknown [facility] [place] [id number] NotePatient Education Nephrology Dietary Guidelines to Help [...] ? 8 oz (237 mL) of milk, nxkehzf-biofqmtywaaa-cwhay milk, and calcium- fortifiedfruit juice. Calcium-fortified means [...] Spinach (cooked), rhubarb, beets, sweet potatoes, and American chard. ? Peanuts. ? Potato chips, dutch fries, and baked potatoes with skin on. ? Nuts and nut products. ? Chocolate. ??? If you regularly take a diuretic medicine, make sure to eat at least 1 or 2 servings of fruits or vegetables that are high in potassium each day. These include: ? Avocado. ? Banana. ? Bradley, prune, carrot, or tomato juice. ? Baked [...] fish oil, or vitamin B6. ??? Take lzwq-ais-ifvtfwf and prescription medicines only as told by your health (more content not included)...[facility]12-19-2024 Telephone encounter Note* Telephone Encounter - [...] to recheck her INR after the holiday. [facility] [id number] Miscellaneous Notes* Telephone Encounter - Jayme Perez [...] her to recheck her INR after the year holiday. * Telephone Encounter - Angeles Bonilla [...] in about 2 weeks. documented in this encounter[facility] CenterEppyrhwmpu52-80-8556 Telephone encounter Note* Telephone Encounter - Angeles Bonilla - 06/17/2024 9:11 AM EST Left voicemail to continue current dose and recheck in about 2 weeks [facility] CenterCwfdnitlne09-61-4233 Telephone encounter Note* Telephone Encounter - Jayme Perez MD - 06/17/2024 7:12 AM EST She is right on the border of the elevated. I would just continue the same dose and get rechecked it again in about 2 weeks. [facility] CenterEgttqllhjp93-70-2587 History of Present illness Narrative* Jayme Perez [...] problem, stable, comanaged with Cardiology. Asymptomatic. 2. 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 Chronic problem, stable, [...] I discussed with the patient or their players club representative, their fatigue issues. We discussed how [...] 60 tablet; Refill: 0 documented in this encounterBothwell Regional Health CenterJfoagvsqem04-71-7269 Hospital Discharge instructions Patient Education 10/14/2023 09:33:38 [...] include: ?8 oz (237 mL) of milk, qvklybr-kvobfyrtsdtk-wqdsp milk, and calcium- fortifiedfruit juice. Calcium-fortified means [...] ?Spinach (cooked), rhubarb, beets, sweet potatoes, and American chard. ?Peanuts. ?Potato chips, dutch fries, and baked potatoes with skin on. ?Nuts and nut products. ?Chocolate. If you regularly take a diuretic medicine, make sure to eat at least 1 or 2 servings of fruits or vegetables that are high in potassium each day. These include: ?Avocado. ?Banana. ?Bradley, prune, carrot, or tomato juice. ?Baked potato. [...] magnesium, fish oil, or vitamin B6. Take kfpl-qmw-ulchiej and prescription medicines only as told by [...] Casseroles. Pizza. Lasagna. Frozen meals. Potato chips. Grenadian fries. The items listed above may not [...] provider. Document Revised: 10/10/2022 Document Reviewed: 10/10/2022 [employer] Patient Education 2022 [employer]. Follow Up Care 08/13/2023 10:19:44 With:CORA AGUIAR, Williams Venegas, URL Address: [address] [place], [place] [id number]- When: Unknown [facility] [id number] Hospital Discharge instructions Patient Education 08/13/2023 11:34:50 [...] including vitamins, herbs, eye drops, creams, and bksz-zmz-enffrhn medicines. Any problems you or family members [...] provider tells you to take them. ?Taking eihf-wfu-rbvyqfj medicines, vitamins, herbs, and supplements. Eating and [...] provider. Document Revised: 11/06/2022 Document Reviewed: 03/04/2022 [employer] Patient Education 2022 [employer]. Follow Up Care 08/12/2023 14:37:00 With:ANGELITO AGUIAR, Renato Arzola, URL Address: [facility] [address] , [place] [address]- [phone] When: Unknown Comments:sched ureteroscopyf/u w/ GPC scheduled 10/14/23 [facility] 01-25-2024 History of Present illness Narrative* Jayme [...] 0.55 - 1.02 mg/dL Final TBH EGFR-AF [place] 07/22/2023 >60 >=60 Final TBH EGFR-NON AF [place] 07/22/2023 55 (L) >=60 Final BUN CREATININE [...] without long-term current use of insulin (HCC) (CMS/[facility]) - metFORMIN (Glucophage) 1000 MG [...] cardiovascular disease. Former smoker 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, adult 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 Chronic problem, that is monitored monthly, and be seen in the monthly INR results. documented in this encounterBothwell Regional Health CenterCibclxfoyu27-04-7963 Evaluation note* Encounter Date Diagnosis Assessment Notes [...] care as directed rx of steroid and [place], cool mist humidification. May use Tylenol as directed. Immediate eval for signs of respiratory distress, difficulty breathing poor PO intake, signs of dehydration, fever, or other concerning symptoms. Otherwise, follow up with PCP in 2-3 days. Patient verbalizes understanding and is agreeable to treatment plan. Patient sent home in stable condition. [email or web address] Other 08-11-2022 NotePROCEDURE: XR FOOT LT MIN 3 VIEWS COMPARISON: None. HISTORY: Pain in left foot FINDINGS: BONES:No acute fracture or dislocation. Mild enthesopathic spurring of the calcaneus. SOFT TISSUES:Negative. No visible soft tissue swelling. EFFUSION:None visible. OTHER: Negative. IMPRESSION: Mild enthesopathic spurring of the calcaneus Electronically authenticated by: BLANCA ZAVALA Date: 2022-02-21 07:28[facility] Future Appointments Appointment Date:07/12/2024 10:45:00 AM Scheduled Provider:Williams SHEPHERD MD Location:[facility] Appointment Type:URO Office Visit [facility] Evaluation + Plan note Future Appointments Appointment Date:07/12/2024 10:45:00 AM Scheduled Provider:Williams SHEPHERD MD Location:[facility] Appointment Type:URO Office Visit Diagnostic Tests Pending * Calculi [facility] Future Appointments Appointment Date:10/14/2023 09:15:00 AM Scheduled Provider:Wliliams SHEPHERD MD Location:[facility] Appointment Type:URO Office Visit Appointment Date:07/12/2024 10:45:00 AM Scheduled Provider:Williams SHEPHERD MD Location:[facility] Appointment Type:URO Office Visit [facility] Evaluation [employer]Nort [employer] Other Evaluation noteNo assessment information available [facility] Work Phone: Evaluation note* Diagnosis Chronic diastolic heart failure (CMS/HCC)- Primary Chronic diastolic heart failure 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 (CMS/HCC) Atrial fibrillation Type 2 diabetes mellitus with stage 3a chronic kidney disease, without long-term current use of insulin (HCC) (CMS/HCC) Stage 3a chronic kidney disease (HCC) ([facility]/HCC) Microalbuminuria Proteinuria Former smoker Personal history of tobacco use, presenting hazards to health 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, adult 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 Psoriatic arthropathy (CMS/HCC) Psoriatic arthropathy Gastroesophageal reflux disease without esophagitis Esophageal reflux documented in this encounter [facility] HealthcareEvaluation note* Diagnosis 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 (CMS/HCC)- Primary Atrial fibrillation 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 Type 2 diabetes mellitus with stage 3a chronic kidney disease, without long-term current use of insulin (HCC) (CMS/HCC) Stage 3a chronic kidney disease (HCC) (CMS/HCC) Microalbuminuria Proteinuria Unexplained weight loss Loss of weight Chronic fatigue Other malaise and fatigue Sleep arousal disorder documented in this encounter [facility] HealthcareEvaluation note* Diagnosis Type 2 diabetes mellitus with stage 3a chronic kidney disease, without long-term current use of insulin (HCC) ([facility]/HCC) documented in this encounter [facility] HealthcareHistory general N[facility]ative - [facility] [employer] Other History general Narrative - Reported* Type Description Date Medical History Arthritis Medical History diabetes mallitus Surgical History cataract surgery [facility] [employer] Other Hospital course Narrative No data available for this section [facility] Hospital Discharge instructions No data available for this section [facility] [place] note No data available for this section [facility] Summary Purpose Family History Relationship Condition Age [...] pital DATE CREATED AUTHOR AUTHOR'S ORGANIZ ATION 04/10/2024 [facility] DATE CREATED AUTHOR AUTHOR'S ORGANIZ ATION 07/13/[address] 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 Start Date End Date Jayme Perez MD [address] [place] [address] (Fax) PCP - General Family Medicine 11/25/22 Jayme Perez MD [address] [place] [address] PCP - ACO Reach 12/05/22 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 Start Date End Date Jayme Perez MD [address] [place] [address] (Fax) PCP - General Family Medicine 11/25/22 Jayme Perez MD [address] [place] [address] (Fax) PCP - ACO Reach 12/05/22 Team Status: Inactive Member Role Status Dates Jayme Perez MD Primary Care Provider Active Start: March 31, 2024 End: March 31, 2024 Radames Monteiro MD Attending Provider Active St art: March 31, 2024 End: March 31, 2024 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 Start Date End Date Jayme Perez MD [address] [place] [phone] (Fax) PCP - General Family Medicine 11/25/22 Jayme Perez MD [address] [place], [place] [phone] (Fax) PCP - ACO Reach 12/05/22 Felicia Farmer DO [address] [place] [address] [address] [place] [phone] Referring Physician Ophthalmology 08/21/23 Renato Santacruz MD [address] [place] [address] Referring Physician Urology 08/21/23 Radames Monteiro MD [address] [facility] Professional building [address] [place] [phone] Referring Physician Rheumatology 08/21/23 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 Start Date End Date Jayme Perez MD [address] [place] [phone] (Fax) PCP - General Family Medicine 11/25/22 Jayme Perez MD [address] [place] [address] (Fax) PCP - ACO Reach 12/05/22 Felicia Farmer DO [address] [place] [phone] Referring Physician Ophthalmology 08/21/23 Renato Santacruz MD [address] [place] [phone] Referring Physician Urology 08/21/23 Radames Monteiro MD [address] [facility] Professional building [address] [place] [phone] Referring Physician Rheumatology 08/21/23 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 Start Date End Date Jayme Perez MD [address] [place] [address] (Fax) PCP - General Family Medicine 11/25/22 Jayme Perez MD [address] [place] [address] (Fax) PCP - ACO Reach 12/05/22 Felicia Farmer DO [address] [place] [phone] Referring Physician Ophthalmology 08/21/23 Renato Santacruz MD [address] [place] [address] Referring Physician Urology 08/21/23 Radames Monteiro MD [address] [place] [address] Referring Physician Rheumatology 08/21/23 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 Start Date End Date Jayme Perez MD [address] [place] [address] (Fax) PCP - General Family Medicine 11/25/22 Jayme Perez MD [address] [facility] [address] [place] [phone] (Fax) PCP - ACO Reach 12/05/22 Felicia Farmer DO [address] [place] [phone] Referring Physician Ophthalmology 08/21/23 Renato Santacruz MD [address] [place] [address] Referring Physician Urology 08/21/23 Radames Monteiro MD [address] [place] [address] Referring Physician Rheumatology 08/21/23 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 Start Date End Date Jayme Perez MD [address] [place] [address] (Fax) PCP - General Family Medicine 11/25/22 Jayme Perez MD [address] [place] [address] (Fax) PCP - ACO Reach 12/05/22 Felicia Farmer DO [address] [place] [address] Referring Physician Ophthalmology 08/21/23 Renato Santacruz MD [address] [place] [address] Referring Physician Urology 08/21/23 Radames Monteiro MD [address] [place] [phone] Referring Physician Rheumatology 08/21/23 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 Start Date End Date Jayme Perez MD [address] [phone] (Fax) PCP - General Family Medicine 11/25/22 Jayme Perez MD [address] [place] [address] (Fax) PCP - ACO Reach 12/05/22 Felicia Farmer DO [address] [place] [address] Referring Physician Ophthalmology 08/21/23 Renato Santacruz MD [address] [place] [address] Referring Physician Urology 08/21/23 Radames Monteiro MD [address] [place] [phone] Referring Physician Rheumatology 08/21/23 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 Start Date End Date Jayme Perez MD [address] [place] [address] (Fax) PCP - General Family Medicine 11/25/22 Jayme Perez MD [address] [place] [address] (Fax) PCP - ACO Reach 12/05/22 Felicia Farmer DO [address] [place] [address] Referring Physician Ophthalmology 08/21/23 Renato Santacruz MD [address] [place] [address] Referring Physician Urology 08/21/23 Radames Monteiro MD [address] [facility] Professional building [address] [place] [phone] Referring Physician Rheumatology 08/21/23 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 Start Date End Date Jayme Perez MD [address] [place] [address] (Fax) PCP - General Family Medicine 11/25/22 Jayme Perez MD [address] [place] [address] (Fax) PCP - ACO Reach 12/05/22 Felicia Farmer DO [address] [place] [address] Referring Physician Ophthalmology 08/21/23 Renato Santacruz MD [address] [phone] Referring Physician Urology 08/21/23 Radames Monteiro MD [address] [place] [address] Referring Physician Rheumatology 08/21/23 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 Start Date End Date Jayme Perez MD [address] [place] [address] (Fax) PCP - General Family Medicine 11/25/22 Jayme Perez MD [address] [address] (Fax) PCP - ACO Reach 12/05/22 Felicia Farmer DO [address] [place] [phone] Referring Physician Ophthalmology 08/21/23 Renato Santacruz MD [address] [phone] Referring Physician Urology 08/21/23 Radames Monteiro MD [address] Professional [address] [place] [phone] Referring Physician Rheumatology 08/21/23 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 Start Date End Date Jayme Perez MD [address] [place] [address] (Fax) PCP - General Family Medicine 11/25/22 Jayme Perez MD [address] [place] [address] PCP - ACO Reach 12/05/22 Felicia Farmer DO [address] [facility] [address] [place] [address] Referring Physician Ophthalmology 08/21/23 Renato Santacruz MD [address] [place] [address] Referring Physician Urology 08/21/23 Radames Monteiro MD [address] [facility] Professional building [address] [place] [address] Referring Physician Rheumatology 08/21/23 Goals (unrecognized [...] BE BASED ON THE PRIMARY CLINICAL RECORDS. [email or web address] provides no warranty or guarantee of the accuracy or completeness of information in this document.
[2024-09-13 10:45] LABS: INR 1.78; Prothrombin Time 17.8 sec (9.0-11.6)
== END 2024-09-13 10:08 | disposition home or self-care (01) ==
LOC: LAB 10:09
PROVIDERS: PCP Family Medicine; Visit Provider Family Medicine
DX: Z51.81 Encounter for therapeutic drug level monitoring (principal); Z79.01 Long term (current) use of anticoagulants; I48.0 Paroxysmal atrial fibrillation; E11.9 Type 2 diabetes mellitus without complications
CPT/HCPCS: 36415; 85610

== ENCOUNTER 2024-09-27 10:41 | Outpatient (OUT) | payer MEDICARE, SELFPAY ==
[2024-09-27 11:38] LABS: INR 2.79; Prothrombin Time 26.7 sec (9.0-11.6)
== END 2024-09-27 10:42 | disposition home or self-care (01) ==
LOC: LAB 10:44
PROVIDERS: PCP Family Medicine; Visit Provider Family Medicine
DX: I48.0 Paroxysmal atrial fibrillation (principal); Z79.01 Long term (current) use of anticoagulants; Z51.81 Encounter for therapeutic drug level monitoring
CPT/HCPCS: 36415; 85610

== ENCOUNTER 2024-10-18 09:57 | Outpatient (OUT) | payer MEDICARE, SELFPAY ==
--- OUTSIDE RECORDS SUMMARY | 2024-10-18 10:27 | XMS_ITS | CCD ---
Author Organization [facility] Care Team Providers Care Construction Producer Name Role Phone Astrid Baker Unavailable CAYETANO, [...] Care Provider MD Williams Shepherd Attending Provider [phone] Lou Glover Unavailable Jayme Perez MD Primary Care Provider [phone] Jayme Perez MD Unavailable MD Jayme Perez Primary Care Provider MD Radames Monteiro Attending Provider [phone] Radames Monteiro Admitting Unavailable Radames Monteiro Attending Unavailable Jayme Perez Primary Care Unavailable Felicia Farmer DO Unavailable Renato Santacruz MD Unavailable Radames Monteiro MD Unavailable Jayme Perez MD Primary Care Provider Jayme Perez MD Unavailable [phone] Jayme Perez MD Primary Care Provider Jayme [...] anaphylaxis, Unknown (qualifier value) [facility] (1 source) sulfaSALAzine Drug Allergy rash [facility] Other (1 source) Ciprofloxacin Drug Allergy 03-30-20 13 [facility] Repository (2 sources) Ketorolac; Translations: [Toradol] Drug Allergy 03-30-20 13 [facility] (2 sources) metroNIDAZOLE; Translations: [MetroGel] Drug Allergy 03-30-20 13 [facility] (1 source) NSAIDs Drug allergy (disorder) 03-30-20 13 [facility] (2 sources) pioglitazone; Translations: [Actos] Drug Allergy 03-30-20 13 [facility] (1 source) Sulfonamides (Antibiotic) Drug allergy (disorder) 03-30-20 13 [facility] (13 sources) Ketorolac; Translations: [ketorolac] Drug Allergy 03-26-20 Unknown (qualifier value), Nausea (finding) [facility] Comment on above: Severe (20 sources) Latex; Translations: [latex] Drug allergy 01-07-20 Blister of skin AND/OR mucosa (finding) [facility] (20 sources) Non-steroidal anti-inflammatory agent; Translations: [NSAIDs] Drug allergy 02-19-20 Unknown (qualifier value) [facility] (20 sources) pioglitazone; Translations: [pioglitazone] Drug Allergy 01-07-20 23 Unknown (qualifier value) [facility] (6 sources) Sulfonamides (Antibiotic); Translations: [sulfa drugs] Drug allergy Unknown (qualifier value) [facility] (20 sources) metroNIDAZOLE; Translations: [Metronidazole] Drug Allergy 02-19-20 Redness of Skin [facility] (3 sources) Sulfonamides (Antibiotic); Translations: [Sulfa (Sulfonamide Antibiotics)] Allergy to substance 03-26-20 [facility] (3 sources) NSAIDS (Non-Steroidal Anti-Inflamma; Translations: [NSAIDS (Non-Steroidal Anti-Inflamma] Allergy to substance 03-26-20 Anaphylaxis, Anaphylaxis, rash [facility] (1 source) Non-steroidal anti-inflammatory agent Drug allergy [facility] [employer] Other (20 sources) Substance with sulfonamide structure and antibacterial mechanism of action (substance) Drug allergy 02-19-20 rash [facility] [employer] Other (20 sources) Ketorolac Allergy to substance 01-07-20 Nausea Only [facility] (20 sources) Hydrocodone Bit-Homatrop Mbr Propensity to adverse reactions 08-07-19 Dizziness [facility] (20 sources) Medical Adhesive Remover Drug Allergy 02-19-20 [facility] (1 source) Ciprofloxacin Drug Allergy 07-25-19 [facility] Repository (1 source) Ketorolac Drug Allergy 03-26-20 [facility] Repository (1 source) pioglitazone Drug Allergy 03-26-20 [facility] Repository Medications Current Medications Medication [...] Take with meals. 270 tablet 1 04/15/2024 Active Start: 08-17-2019 acarbose Oral, TID, Refills(s) [...] Refill(s) 0 Start Date: 08/13/23 Status: Ordered [id number] 200 actuat albuterol 0.09 mg/actuat metered dose [...] Date: 09/19/20 Status: Ordered Cyanocobalamin-Liver Extract (Vitamin Z37-Esohs) Tablet (2 sources) Start: 03-26-2023 take 1 tablet by mouth once daily Cyanocobalamin-Liver Extract (Vitamin G63-Fofun) Tablet Active 1 TAB PO every day at March 26, 2023 12:00am Start: 03-26-2023 take 1 tablet by valdo th once daily Cyanocobalamin-Liver Extract (Vitamin U19-Kufkx) Tablet Active 1 TAB PO every day at March 25, 2023 11:00pm dextromethorphan hydrobromide 1.5 mg/ml / pyrilamine maleate 1.5 mg/ml oral solution (1 source) Uncompetitive D-bunxvp-W-aspartate Receptor Antagonist, Sigma-1 Agonist Start: 07-25-2023 take 10 mL by mouth every eight hours [place] DM 7.5-7.5 MG/5ML 10 mL Orally every 8 hours for 5 days Jul, Active esomeprazole 20 mg oral tablet (20 sources) Proton Pump Inhibitor Start: 08-17-2019 Nexium 20 mg, Oral, As Directed, Refills(s) 0 Start Date: 08/17/19 Status: Ordered Start: 08-17-2019 Nexium Oral, D aily, Refills(s) 0 Start Date: 08/17/19 Status: Ordered take 1 capsule by [facility] once daily esomeprazole (NexIUM) 20 MG [...] Take with meals. 180 tablet 1 04/15/2024 Active Start: 08-17-2019 metformin Oral , Refills(s) [...] 08/17/19 Status: Ordered Methotrexate Sod ium Active [facility] Medication (5 sources) Start: [facility] See Instructions, Oral Start Date: 09/19/20 Status: Ordered Start: 09-19-2020 [facility] Medicatio n ironchlate Start Date: 09/19/20 Status: [...] Spacer/Aero-Holding Chambers (BreatheRite Leonor Spacer Adult) misc (20 sources) Start: 07-16-2023 Spacer/Aero-Ho lding Chambers (BreatheRite Leonor Spacer Adult) [facility] Indications: Chronic obstructive pulmonary disease with acute exacerbation (CMS/HCC) 2 puffs 4 (four) times a day as needed (sob and cough) 1 each 07/16/2023 Active Start: 07-16-2023 Spacer/Aero-Ho lding Chambers (BreatheRite Leonor Spacer Adult) [facility] Indications: Chronic obstructive pulmonary disease with acute exacerbation (CMS/HCC) 2 puffs 4 (four) times a day as needed (sob and cough) 1 each 0 07/16/2023 Active tamsulosin hydrochloride 0.4 mg oral capsule (20 sources) alpha-Adrenergic Sergey Start: 08-13-2023 End: 08-20-2023 take 1 mg by mouth once daily tamsulosin 0.4 mg Cap mg cap(s), Oral, Daily, X 7 day(s), Refills(s) 0 Start Date: 08/13/23 Stop Date: 08/20/23 Status: Ordered Start: 08-12-2023 take 1 capsule by [facility] every twenty-four hours in the morning tamsulosin (Flomax) 0.4 MG 24 hr capsule Take 0.4 mg by mouth in the morning. 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; [...] disorders] Onset: 3 12-12-2022 Chronic Immunity disorders (20 sources) Immunosuppression; Translations: [Immunodeficiency, unspecified] Onset: 3 12-12-2022 Chronic Malaise and fatigue (2 sources) Fatigue; Translations: [Chronic fatigue, unspecified] 04-15-2024 Chronic Menopausal disorders (20 sources) Disorder associated with menstruation AND/OR menopause; Translations: [Menopausal and female climacteric states] Onset: 3 12-12-2022 Chronic Mood disorders (5 sources) Depressive disorder 08-17-2019 Chronic Nutritional deficiencies (20 sources) Vitamin D deficiency; Translations: [Vitamin D deficiency, unspecified] Onset: 3 12-12-2022 Chronic Osteoporosis (20 sources) Osteoporosis; Translations: [Age-related osteoporosis without current pathological fracture] Onset: 3 12-12-2022 Chronic Other aftercare (1 source) 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..] eyelids] Onset: 05-19-2023 05-19-2023 Episodic Mood disorders (20 sources) Mood disorders Onset: 05-22-2023 05-22-2023 Nutritional deficiencies (20 sources) Iron deficiency; Translations: [Iron deficiency] Onset: 12-12-2022 12-12-2022 Episodic Other aftercare (1 source) skilled nursing (current) use of oral hypoglycemic drugs; Translations: [PRISON USE ORAL HYPOGLYCEMIC DX] Onset: 08-12-2022 Episodic Other aftercare (1 source) skilled nursing (current) use of insulin; Translations: [PRISON CURRENT USE OF INSULIN] Onset: 02-13-2022 Episodic Other aftercare (20 sources) Long-term current use of anticoagulant; Translations: [skilled nursing (current) use of anticoagulants] Onset: 07-21-2023 Episodic Other bone disease and musculoskeletal deformities (20 sources) Osteopenia; Translations: [Other specified disorders of bone density and structure, unspecified site] Onset: 12-12-2022 12-12-2022 Episodic Other connective tissue disease (4 sources) Pain in left foot; Translations: [PAIN IN LEFT FOOT] Onset: 02-20-2022 Episodic Other eye disorders (20 sources) Dry eyes; Translations: [Dry eye syndrome of bilateral lacrimal glands] Onset: 05-19-2023 05-19-2023 Episodic Other nutritional; endocrine; and metabolic disorders (20 sources) Overweight; Translations: [Overweight] Onset: 12-12-2022 Resolved: 07-30-2023 07-30-2023 Episodic Pneumonia (except that caused by tuberculosis or sexually transmitted disease) (1 source) Pneumonia, unspecified organism Onset: 05-21-2021 Resolved: 05-21-2021 Episodic Residual codes; unclassified (20 sources) Body mass index 20-24 - normal; Translations: [Body mass index (BMI) 24.0-24.9, adult] Onset: 07-30-2023 07-30-2023 Episodic Residual codes; unclassified (20 sources) Sleep disorder; Translations: [Sleep disorder, unspecified] [...] Test Name Value Interpretation Reference Range Facil [facility] PROTHROMBIN TIME INR W/O COUMon 09-27-2024 Interpretation and review of laboratory results Abnormal [facility] PT Coag (PPP) [Time] 26.7 s High [facility] INR 2.79 [facility] Comment on above: DESIRED INR: 2.0-3.0 CONDITIONS NOT LISTED BELOW 2.5-3.5 FOR PROSTHETIC HEART VALVE REPLACEMENT 2.5-3.5 RECURRENT THROMBOSIS [facility] PROTHROMBIN TIME INR W/O COUMon 09-13-2024 Interpretation and review of laboratory results Abnormal [facility] PT Coag (PPP) [Time] 17.8 s High [facility] INR 1.78 [facility] Comment on above: DESIRED INR: 2.0-3.0 CONDITIONS NOT LISTED BELOW 2.5-3.5 FOR PROSTHETIC HEART VALVE REPLACEMENT 2.5-3.5 RECURRENT THROMBOSIS [facility] PROTHROMBIN TIME INR W/O COUMon 08-17-2024 Interpretation and review of laboratory results Abnormal [facility] PT Coag (PPP) [Time] 19.7 s High [facility] INR 1.99 [facility] Comment on above: DESIRED INR: 2.0-3.0 CONDITIONS NOT LISTED BELOW 2.5-3.5 FOR PROSTHETIC HEART VALVE REPLACEMENT 2.5-3.5 RECURRENT THROMBOSIS [facility] Ophthalmic OCT panelon 08-04 [facility] Right Eye Images reviewed and comparison made to baseline, Images reviewed. To assess optic nerve function and for use in future follow-up. Reliability: good and adequate. Left Eye Images reviewed and comparison made to baseline, Images reviewed. To assess optic nerve function and for use in future follow-up. Reliability: good and adequate. Notes Good nerve fiber layer (NFL) thickness both eyes (OU). Stable. [facility] Radiology Study observation (narrative) [facility] PROTHROMBIN TIME INR W/O COUMon 07-19-2024 Interpretation and review of laboratory results Abnormal [facility] PT Coag (PPP) [Time] 27 s High [facility] TB INR 2.82 [facility] Comment on above: DESIRED INR: 2.0-3.0 CONDITIONS NOT LISTED BELOW 2.5-3.5 FOR PROSTHETIC HEART VALVE REPLACEMENT 2.5-3.5 RECURRENT THROMBOSIS [facility] Ambulatory Visit Summaryon 1 Ambulatory Visit Summary [...] CORA AGUIAR, MILDRED Castillo When: Where: [address] [place] [id number]- Medications What How Much When Instructions Unchanged [...] murmur History of uterine cancer Hx of alf use of blood thinners Kidney stone Kidney [...] greater depending (more content not included)... Normal [facility] Reminderson 07-12-2024 Reminders Reminders From: Julita Vu [...] ) Other: PROVIDER RELATED REMINDER:_ ( ) Photogrammetric Surveyor ( ) Call Pharmacy ( ) Call Lab ( ) Other: Special Instructions:_ Comments:_ Normal [facility] Reminders Reminders From: Jo-Ann Schaeffer To: [place] - Administrative; Sent: 07/12/2024 11:46:18 EST Show up: 04/17/2026 11:46:00 EDT Subject: 2 YR AND KUB Due Date/Time: 07/03/2026 11:46:00 EST Reminder/Recall SCHEDULE IN 2 YRS AND KUB W/ DR SHEPHERD [facility] Urology Office/Clinic Noteon 07-12-2024 Urology Office/Clinic Note Urology Office/Clinic Note Chief Complaint 3 month F/U w KUB HPI Staff 18 mo with KUB due to kidney stones. KUB 07/05/24-[facility] *no uro meds Dysuria: denies Incomplete bladder [...] nodule. Not worrisome, stable. 3. Anticoagulated (Z79.01: skilled nursing (current) use of anticoagulants) Warfarin for A-fib. [...] Venegas, URL [address] [place] [id number]- Additional Instructions: 18 mos with KUB Patient Education Dietary Guidelines to Help Prevent Kidney Stones I, Julita Vu, personally scribed for Dr. Shepherd on 07/12/2024 11:45:03. . Portions of this record may have been created with voice recognition artificial intelligence software, specifically [employer], [employer] and or [employer] Substitutions may have occurred due to the inherent limitations of voice recognition and artificial intelligence software. 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 Normal [facility] Comment on above: Result Comment: Elec tronically Signed By: Williams SHEPHERD MD P\.br\Date and Time Signed: 07/12/24 12:24 EST\.br\Electronically Co-Signed By: Julita Vu\.br\Date and Time Co-Signed: 07/12/24 11:46 EST [facility] PROTHROMBIN TIME INR W/O COUMon 07-01-2024 Interpretation and review of laboratory results Abnormal [facility] PT Coag (PPP) [Time] 30.3 s High [facility] TBH INR 3.21 [facility] Comment on above: DESIRED INR: 2.0-3.0 CONDITIONS NOT LISTED BELOW 2.5-3.5 FOR PROSTHETIC HEART VALVE REPLACEMENT 2.5-3.5 RECURRENT THROMBOSIS [facility] ALL CBC WITH AUTO DIFFon BASOPHILS ABSOLUTE AUTO 0.1 [facility] Basophils/100 WBC (Bld) 0.8 % 0.2 - 2.0 % [facility] Eosinophils/100 WBC (Bld) 3.2 % 0.9 - 7.0 % [facility] Erythrocyte distribution width (RBC) [Ratio] 14.5 % 11.0 - 15.0 % [facility] Hematocrit (Bld) [Volume fraction] 38.1 % 36.0 - 48.0 % [facility] Hemoglobin (Bld) [Mass/Vol] 12.3 g/dL 12.0 - 16.0 g/dL [facility] IMMATURE GRANULOCYTES ABS AUTO 0.03 [facility] Immature granulocytes/100 WBC (Bld) 0.5 % 0.0 - 0.5 % [facility] Interpretation and review of laboratory results Abnormal [facility] LYMPHOCYTES ABSOLUTE AUTO 2 [facility] Lymphocytes/100 WBC (Bld) 30.8 % 20.5 - 60.0 % [facility] MCH (RBC) [Entitic mass] 31.6 pg 26.7 - 34.0 pg [facility] MCHC (RBC) [Mass/Vol] 32.3 g/dL 29.9 - 35.2 g/dL [facility] MCV (RBC) [Entitic vol] 97.9 fL 81.0 - 99.0 fL [facility] MONOCYTES ABSOLUTE AUTO 0.5 [facility] Monocytes/100 WBC (Bld) 7.7 % 1.7 - 12.0 % [facility] NEUTROPHILS ABSOLUTE AUTO 3.8 [facility] Neutrophils/100 WBC (Bld) 57 % 43.0 - 75.0 % [facility] Platelet mean volume (Bld) [Entitic vol] 8.9 fL Low 9.5 - 13.5 fL [facility] EO # 0.2 [facility] PLT 300 [facility] RBC 3.89 Low [facility] WBC 6.6 [facility] COUMon 05-14-2024 Interpretation and review of laboratory results Abnormal [facility] PT Coag (PPP) [Time] 23 s High [facility] INR 2.36 [facility] Comment on above: DESIRED INR: 2.0-3.0 CONDITIONS NOT LISTED BELOW 2.5-3.5 FOR PROSTHETIC HEART VALVE REPLACEMENT 2.5-3.[address] [facility] [place] [place] CREATININEon 04-22-2024 Creatinine [Mass/Vol] 0.84 mg/dL 0.55 - 1.02 mg/dL [facility] GFR/1.73 sq M.predicted CKD-EPI (S/P/Bld) [Vol rate/Area] >60 >=60 mL/min/1.73m 2 [facility] EGFR-NON AF CITIZEN OF [place] >60 >=60 mL/min/1.73m 2 [facility] WITH AUTO DIFFon BASOPHILS ABSOLUTE AUTO 0.0 [facility] Basophils/100 WBC (Bld) 0.6 % 0.2 - 2.0 % [facility] Eosinophils/100 WBC (Bld) 2.1 % 0.9 - 7.0 % [facility] Erythrocyte distribution width (RBC) [Ratio] 14.1 % 11.0 - 15.0 % [facility] Hematocrit (Bld) [Volume fraction] 41.8 % 36.0 - 48.0 % [facility] Hemoglobin (Bld) [Mass/Vol] 13.5 g/dL 12.0 - 16.0 g/dL [facility] IMMATURE GRANULOCYTES ABS AUTO 0.02 [facility] Immature granulocytes/100 WBC (Bld) 0.3 % 0.0 - 0.5 % [facility] Interpretation and review of laboratory results Abnormal [facility] LYMPHOCYTES ABSOLUTE AUTO 2.1 [facility] Lymphocytes/100 WBC (Bld) 32.2 % 20.5 - 60.0 % [facility] MCH (RBC) [Entitic mass] 31.0 pg 26.7 - 34.0 pg [facility] MCHC (RBC) [Mass/Vol] 32.3 g/dL 29.9 - 35.2 g/dL [facility] MCV (RBC) [Entitic vol] 95.9 fL 81.0 - 99.0 fL [facility] MONOCYTES ABSOLUTE AUTO 0.5 [facility] Monocytes/100 WBC (Bld) 6.8 % 1.7 - 12.0 % [facility] NEUTROPHILS ABSOLUTE AUTO 3.8 [facility] Neutrophils/100 WBC (Bld) 58.0 % 43.0 - 75.0 % [facility] Platelet mean volume (Bld) [Entitic vol] 8.6 fL Low 9.5 - 13.5 fL [facility] TB EO # 0.1 [facility] PLT 316 [facility] RBC 4.36 [facility] WBC 6.6 [facility] PROTHROMBIN TIME INR W/O COUMon 04-13-2024 Interpretation and review of laboratory results Abnormal [facility] PT Coag (PPP) [Time] 27.7 s High [facility] TB INR 2.90 [facility] Comment on above: DESIRED INR: 2.0-3.0 CONDITIONS NOT LISTED BELOW 2.5-3.5 FOR PROSTHETIC HEART VALVE REPLACEMENT 2.5-3.5 RECURRENT THROMBOSIS [facility] Magnesium [Mass/volume] in S fartun or PlasmaOrdered By: Radames Monteiro on 03-31-2024 Magnesium [Mass/Vol] 1.9 mg/dL Normal 1.9-2.7 [facility] Comment on above: Result Comment: PERF ORMED BY: [place] [address] PATHOLOGIST DIE TROUBLE SHOOTER BERNIE GRAYSON M.D. Performed By: #### Joe Alcantara, PHOS #### [facility] [address] [place] [address] Phosphate [Mass/volume] in S fartun or PlasmaOrdered By: Radames Monteiro on 03-31-2024 Phosphate [Mass/Vol] 3.7 mg/dL Normal 2.5-4.5 [facility] Comment on above: Performed By: #### Joe Alcantara, PHOS #### [address] ALL CBC WITH AUTO DIFFon BASOPHILS ABSOLUTE AUTO 0.0 [facility] Basophils/100 WBC (Bld) 0.6 % 0.2 - 2.0 % [facility] Eosinophils/100 WBC (Bld) 5.1 % 0.9 - 7.0 % [facility] Erythrocyte distribution width (RBC) [Ratio] 14.3 % 11.0 - 15.0 % [facility] Hematocrit (Bld) [Volume fraction] 41.5 % 36.0 - 48.0 % [facility] Hemoglobin (Bld) [Mass/Vol] 13.3 g/dL 12.0 - 16.0 g/dL [facility] IMMATURE GRANULOCYTES ABS AUTO 0.01 [facility] Immature granulocytes/100 WBC (Bld) 0.1 % 0.0 - 0.5 % [facility] Interpretation and review of laboratory results Abnormal [facility] LYMPHOCYTES ABSOLUTE AUTO 2.9 [facility] Lymphocytes/100 WBC (Bld) 39.4 % 20.5 - 60.0 % [facility] MCH (RBC) [Entitic mass] 30.9 pg 26.7 - 34.0 pg [facility] MCHC (RBC) [Mass/Vol] 32.0 g/dL 29.9 - 35.2 g/dL [facility] MCV (RBC) [Entitic vol] 96.5 fL 81.0 - 99.0 fL [facility] MONOCYTES ABSOLUTE AUTO 0.4 [facility] Monocytes/100 WBC (Bld) 6.1 % 1.7 - 12.0 % [facility] NEUTROPHILS ABSOLUTE AUTO 3.5 [facility] Neutrophils/100 WBC (Bld) 48.7 % 43.0 - 75.0 % [facility] Platelet mean volume (Bld) [Entitic vol] 8.7 fL Low 9.5 - 13.5 fL [facility] TBH EO # 0.4 [facility] TB PLT 291 [facility] RBC 4.30 [facility] WBC 7.2 [facility] PROTHROMBIN TIME INR W/O COUMon 03-17-2024 Interpretation and review of laboratory results Abnormal [facility] PT Coag (PPP) [Time] 28.2 s High [facility] INR 2.96 [facility] Comment on above: DESIRED INR: 2.0-3.0 CONDITIONS NOT LISTED BELOW 2.5-3.5 FOR PROSTHETIC HEART VALVE REPLACEMENT 2.5-3.5 RECURRENT THROMBOSIS [facility] Ambulatory Visit Summaryon 0 10-14-2023 Ambulatory Visit [...] Williams SHEPHERD MD Where: [facility] Patient Educationon 10-14-19 24 Patient Education Nephrology [...] Spinach (cooked), rhubarb, beets, sweet potatoes, and Gambian chard. ? Peanuts. ? Potato chips, malawian fries, and baked potatoes with skin on. ? Nuts and nut products. ? Chocolate. ? If you regularly take a diuretic medicine, make sure to eat at least 1 or 2 servings of fruits or vegetables that are high in potassium each day. These include: ? Avocado. ? Banana. ? Galliano, prune, carrot, or tomato juice. ? Baked [...] fish oil, or vitamin B6. ? Take [id number] and prescription medicines only as told by your health care provider. These include supplements. What foods sh (more content not included)... Normal [facility] Urology Office/Clinic Noteon 10-14-2023 Urology Office/Clinic Note Chief Complaint Pt is here for 3 month w/ met w/u & KUB HPI Staff 6 month follow up w/KUB Pt canceled Cysto/R retro/possible: ureteroscopy, laser, basket, stent placement 04/07/23 due to passing stones Pt was then seen at [facility] on 08/12/23 due to abdominal pain, [...] with voice recognition artificial intelligence software, specifically [employer], [employer] and or [employer] Substitutions may have occurred due to [...] bilateral nephrolithiasis. -See #1 3. 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 Shepherd on 10/14/2023 09:33:56. Electronically signed by (more content not included)... [facility] Comment on above: Result Comment: Elec tronically Signed By: Williams SHEPHERD MD\.br\Date and Time Signed: 10/14/23 09:38 EDT\.br\Electronically Co-Signed By: Charisse Rutherford.br\Date and Time Co-Signed: 10/14/23 09:34 EDT RAD - MISCon 10-10-2023 RAD - MISC [id number] .00TIFF [facility] Lab Reportson 08-27-2023 Lab Reports [id number] .00TIFF [facility] Lab Reportson 08-25-2023 Lab Reports [id number] .00TIFF [facility] [facility] Lab Reports [id number] .00TIFF Normal [facility] Lab Reportson 08-22-2023 Lab Reports [id number]#1 .00TIFF Normal [facility] Lab Reportson 08-21-2023 Lab Reports [id number]#1 .00TIFF Normal [facility] Lab Reports [id number]#1 .00TIFF [facility] ALL BUNon 08-20-2023 Urea nitrogen [Mass/Vol] 12.0 mg/dL 7.0 - 18.0 mg/dL [facility] ALL CARBON DIOXIDEon 024 CO2 [Moles/Vol] 30.1 mmol/L 21.0 - 32.0 mmol/L [facility] ALL CHLORIDEon 08-20-2023 Chloride [Moles/Vol] 104 mmol/L 98 - 107 mmol/L [facility] ALL PHOSPHOROUSon 08-20-2023 Phosphate [Mass/Vol] 4.1 mg/dL 2.6 - 4.7 mg/dL [facility] ALL SODIUMon 08-20-2023 Sodium [Moles/Vol] 141 mmol/L 136 - 145 mmol/L [facility] ALL URIC ACIDon 08-20-2023 Urate [Mass/Vol] 4.4 mg/dL 2.6 - 6.0 mg/dL [facility] CALCIUMon 08-20-2023 Calcium [Mass/Vol] 9.1 mg/dL 8.5 - 10.1 mg/dL [facility] No Panel Informationon 08-20 [facility] CREATININEon 08-20-2023 Creatinine [Mass/Vol] 0.86 mg/dL 0.55 - 1.02 mg/dL [facility] GFR/1.73 sq M.predicted CKD-EPI (S/P/Bld) [Vol rate/Area] >60 60 - PINF [facility] EGFR-NON AF CITIZEN OF [place] >60 60 - PINF [facility] Healthcare Consent for Procedure/Surger yon 08-15-2023 Consent for Procedure/Surgery [id number]#1 .00TIFF Normal [facility] ED Note-Physicianon 08-15-19 ED Note-Physician [id number]#1. 00TIFF Normal [facility] Lab Reportson 08-15-2023 Lab Reports [id number]#1. 00TIFF Normal [facility] Lab Reports [id number]#1 .00TIFF Normal [facility] Lab Reports [id number]#1 .00TIFF Normal [facility] Operative Reporton Operative Report [id number]#1 .00TIFF Normal [facility] RAD - CT Reporton 08-15-2023 RAD - CT Report [id number]#1. 00TIFF Normal [facility] Ambulatory Visit Summaryon 0 08-13-2023 [...] AGUIAR, Williams Venegas Where: [facility] Normal [address] [place] [address]- \.br\ You Need to Schedule the Following Appointments\.br \ Follow Up with ANGELITO AGUIAR, Renato Arzola, URL When: \.br\ Comments:\.br\ sched ureteroscopy\.br \ f/u w/ [facility] scheduled 10/14/23\.br\ Where:\.br\ [facility] [address]br\ [place] [address]-\.br\ [phone]\.br\ Medications\.br\ What How Much When Instructions\.br \ [...] murmur\.br\ History of uterine cancer\.br\ Hx of alf use of blood thinners\.br\ Kidney stones\.br\ Nocturia\.br\ [...] including vitamins, herbs, eye drops, creams, and ahgl-lml-vsqydwm medicines.\.br\ ? \.br\ Any problems you or [...] you to take them.\.br\ ? \.br\ Taking urle-hox-zdeqakp medicines, vitamins, herbs, and supplements.\.br \ Eating [...] including vitamins, herbs, eye drops, creams, and dswk-ewl-pmbwflc medicines. ? Any problems you or family [...] tells you to take them. ? Taking jdcm-ovd-abvfxlo medicines, vitamins, herbs, and supplements. Eating and [...] the pieces (more content not included)... Normal [facility] Urology Office/Clinic Noteon 08-13-2023 Urology Office/Clinic Note Chief Complaint Patient is here for follow up to [facility] ER HPI Staff Patient is here for f/u to [facility] ER on 08/12/23 due to distal [...] abdominal pain) See #1 4. 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 States she did not take this last night. Advised pt not to take her dose today either. Follow-up With When Contact Information Renato SANTACRUZ MD, [facility] [address], [facility] [place] [address]- [phone] Additional Instructions: sched ureteroscopy f/u w/ [facility] scheduled 10/14/23 Patient Education Laser Therapy for Kidney Stones Amy Snell, personally scribed for Dr. Santacruz on 08/13/2023 11:35:03. . Documentation recorded by the Amy serrano, accurately reflects the services(s) I performed and decisions made by me. Authenticated by Dr. Santacruz on 08/13/2023 11:37:02. Problem List/Past Medical History Ongoi (more content not included)... Normal [facility] Comment on above: Result Comment: Elec tronically Signed By: Renato SANTACRUZ MD\.br\Date and Time Signed: 08/13/23 11:37 EST\.br\Electronically Co-Signed By: Amy Gallagher.br\Date and Time Co-Signed: 08/13/23 11:35 EST COVID/FLU/RSV RT-PCRon 07-25 SARS-CoV-2 (COVID-19) RNA TREASURE+probe Ql (Unsp spec) Negative [facility] [employer] Other COVID/FLU/RSV RT-PCR Negative [facility] [employer] Other COVID/FLU/RSV RT-PCR Positive [facility] [employer] Other Activated partial thrombopla stin time (aPTT) in platelet poor plasma by coagulation aOrdered By: Williams Shepherd on 03-26-2023 aPTT Coag (PPP) [Time] 35.9 s 25.1-36.5 [facility] Comment on above: A hematocrit value g reater than 55% may lead to inaccurate results in coagulation testing. Patients having hematocrit values >55% require a special collection tube for coagulation studies. Please contact the laboratory at [phone] for redraw instructions. Basophils Auto (Bld) [#/Vol] Ordered By: Williams Shepherd on 03-26-2023 Basophils (Bld) [#/Vol] 0.0 10*3/uL 0.0-0.2 [facility] Basophils/100 WBC Auto (Bld) Ordered By: Williams Shepherd on 03-26-2023 Basophils/100 WBC (Bld) 0.8 % . [facility] Calcium [Mass/volume] in Ser um or PlasmaOrdered By: Williams Shepherd on 03-26-2023 Calcium [Mass/Vol] 10.0 mg/dL 8.6-10.3 [facility] Carbon dioxide, total [Moles /volume] in Serum or PlasmaOrdered By: Williams Shepherd on 03-26-2023 CO2 [Moles/Vol] 30.0 mmol/L 21.0-31.0 [facility] Chloride [Moles/volume] in S fartun or PlasmaOrdered By: Williams Shepherd on 03-26-2023 Chloride [Moles/Vol] 104 mmol/L 98-107 [facility] Creatinine [Mass/volume] in Serum or PlasmaOrdered By: Williams Shepherd on 09-13-2023 Creatinine [Mass/Vol] 0.85 mg/dL 0.60-1.20 [facility] Eosinophils Auto (Bld) [#/Vo l]Ordered By: Williams Shepherd on 03-26-2023 Eosinophils (Bld) [#/Vol] 0.3 10*3/uL 0.0-0.45 [facility] Eosinophils/100 WBC Auto (Bl d)Ordered By: Williams Shepherd on 03-26-2023 Eosinophils/100 WBC (Bld) 4.3 % . [facility] Erythrocyte distribution wid th Auto (RBC) [Ratio]Ordered By: Williams Shepherd on 03-26-2023 Erythrocyte distribution width (RBC) [Ratio] 14.8 % 11.9-15.3 [facility] Glucose [Mass/volume] in Ser um or PlasmaOrdered By: Wliliams Shepherd on 03-26-2023 Glucose [Mass/Vol] 111 mg/dL 70-100 [facility] Comment on above: ADA recommended refe rence rangeRandom Glucose Reference Range is dependent on time and content of last meal. Glucose of more than 200 mg/dL in a nonstressed, ambulatory subject supports the diagnosis of Diabetes Mellitus. Hematocrit Auto (Bld) [Volum e fraction]Ordered By: Williams Shepherd on 03-26-2023 Hematocrit (Bld) [Volume fraction] 40.3 % 34.0-46.4 [facility] Hemoglobin [Mass/volume] in BloodOrdered By: Williams Shepherd on 03-26-2023 Hemoglobin (Bld) [Mass/Vol] 13.3 g/dL 11.8-15.4 [facility] INR in Platelet poor plasma by Coagulation assayOrdered By: Williams Shepherd on 03-26-2023 INR Coag (PPP) [Relative time] 2.3 {INR} [facility] Comment on above: INR Therapeutic [...] RBC Auto (Bld) [#/Vol] 5.9 10*3/uL 3.8-11.6 [facility] Lymphocytes Auto (Bld) [#/Vo l]Ordered By: Williams Shepherd on 03-26-2023 Lymphocytes (Bld) [#/Vol] 2.2 10*3/uL 1.00-4.8 [facility] Lymphocytes/100 WBC Auto (Bl d)Ordered By: Williams Shepherd on 03-26-2023 Lymphocytes/100 WBC (Bld) 36.9 % . [facility] MCH Auto (RBC) [Entitic mass ]Ordered By: Williams Shepherd on 03-26-2023 MCH (RBC) [Entitic mass] 31.1 pg 24.7-34.3 [facility] MCHC Auto (RBC) [Mass/Vol]Or dered By: Williams Shepherd on 03-26-2023 MCHC (RBC) [Mass/Vol] 32.9 g/dL 32.0-35.0 [facility] MCV Auto (RBC) [Entitic vol] Ordered By: Williams Shepherd on 03-26-2023 MCV (RBC) [Entitic vol] 94.4 fL 80-100 [facility] Monocytes Auto (Bld) [#/Vol] Ordered By: Williams Shepherd on 03-26-2023 Monocytes (Bld) [#/Vol] 0.5 10*3/uL 0.0-0.8 [facility] Monocytes/100 WBC Auto (Bld) Ordered By: Williams Shepherd on 03-26-2023 Monocytes/100 WBC (Bld) 7.8 % . [facility] Neutrophils Auto (Bld) [#/Vo l]Ordered By: Williams Shepherd on 03-26-2023 Neutrophils (Bld) [#/Vol] 3.0 10*3/uL 1.8-7.7 [facility] Neutrophils/100 WBC Auto (Bl d)Ordered By: Williams Shepherd on 03-26-2023 Neutrophils/100 WBC (Bld) 50.2 % . [facility] No Panel InformationOrdered By: Williams Shepherd on 03-26-2023 Estimated GFR (CKD-EPI) > 60.0 mL/Min [facility] Creatinine Clearance (Chem N/A [facility] Nucleated erythrocytes [Pres ence] in Blood by Automated countOrdered By: Williams Shepherd on 03-26-2023 Nucleated RBC Auto Ql (Bld) 0.3 /100{WBC} 0-0.5 [facility] Platelet mean volume Auto (B ld) [Entitic vol]Ordered By: Williams Shepherd on 03-26-2023 Platelet mean volume (Bld) [Entitic vol] 7.1 fL 6.3-10.7 [facility] Platelets Auto (Bld) [#/Vol] Ordered By: Williams Shepherd on 03-26-2023 Platelets (Bld) [#/Vol] 363 10*3/uL 150-450 [facility] Potassium [Moles/volume] in Serum or PlasmaOrdered By: Williams Shepherd on 03-26-2023 Potassium [Moles/Vol] 5.0 mmol/L 3.5-5.1 [facility] Prothrombin time (PT)Ordered By: Williams Shepherd on 03-26-2023 PT Coag (PPP) [Time] 26.6 s 9.0-12.9 [facility] Comment on above: A hematocrit value g reater than 55% may lead to inaccurate results in coagulation testing. Patients having hematocrit values >55% require a special collection tube for coagulation studies. Please contact the laboratory at [phone] for redraw instructions. RBC Auto (Bld) [#/Vol]Ordere d By: Williams Shepherd on 03-26-2023 RBC (Bld) [#/Vol] 4.27 10*6/uL 3.60-5.00 [facility] Serum or plasma anion gap de terminationOrdered By: Williams Shepherd on 03-26-2023 Anion gap [Moles/Vol] 13.0 mmol/L 6.0-15.0 [facility] Sodium [Moles/volume] in Ser um or PlasmaOrdered By: Williams Shepherd on 03-26-2023 Sodium [Moles/Vol] 142 mmol/L 136-145 [facility] Urea nitrogen [Mass/volume] in Serum or PlasmaOrdered By: Williams Shepherd on 03-26-2023 Urea nitrogen [Mass/Vol] 12 mg/dL 7-25 [facility] WBC Auto (Bld) [#/Vol]Ordere d By: Williams Shepherd on 03-26-2023 WBC (Bld) [#/Vol] 5.9 10*3/uL 3.8-11.6 [facility] PROTIMEon 12-02-2022 INR Coag (PPP) [Relative time] 3.62 {INR} Normal [facility] Comment on above: Performed By: #### P T #### [facility] [address] [place] [address] Dr. Tg Fierro INR GUIDELINES SEE BELOW Normal [facility] Comment on above: Result Comment: LAURENCE RED INR: 2.0 - 3.0 CONDITIONS NOT LISTED BELOW 2.5 - 3.5 FOR PROSTHETIC HEART VALVE REPLACEMENT 2.5 - 3.5 RECURRENT THROMBOSIS Performed By: #### P T #### [facility] [address] [address] [address] Tg Fierro PT Coag (PPP) [Time] 35.7 s Critically high 9.0-11.6 [facility] Comment on above: Performed By: #### P T #### [facility] [address] [address] [address] Tg Fierro PROTIMEon 11-11-2022 INR Coag (PPP) [Relative time] 1.90 {INR} Normal [facility] Comment on above: Performed By: #### P T #### [facility] [address] [place] [address] Dr. Tg Fierro INR GUIDELINES SEE BELOW Normal [facility] Comment on above: Result Comment: LAURENCE RED INR: 2.0 - 3.0 CONDITIONS NOT LISTED BELOW 2.5 - 3.5 FOR PROSTHETIC HEART VALVE REPLACEMENT 2.5 - 3.5 RECURRENT THROMBOSIS Performed By: #### P T #### [facility] [address] [place] [address] Dr. Tg Fierro PT Coag (PPP) [Time] 19.4 s Critically high 9.0-11.6 [facility] Comment on above: Performed By: #### P T #### [facility] [address] [address] [address] Tg Fierro CBC AUTO DIFFon 10-25-2022 BASO # 0.0 103/ul Normal 0.0-0.1 [facility] Comment on above: Performed By: #### P T #### [facility] [address] [address] [address] Tg Fierro Basophils/100 WBC (Bld) 0.5 % Normal 0.2-2.0 [facility] Comment on above: Performed By: #### P T #### [facility] [address] [address] [address] Tg Fierro EO # 0.2 103/ul Normal 0.0-0.7 [facility] Comment on above: Performed By: #### P T #### [facility] [address] [place] [address] Dr. Tg Fierro Eosinophils/100 WBC (Bld) 2.7 % Normal 0.9-7.0 [facility] Comment on above: Performed By: #### P T #### [facility] [address] [place] [address] Dr. Tg Fierro Erythrocyte distribution width (RBC) [Ratio] 13.4 % Normal 11.0-15.0 [facility] Comment on above: Performed By: #### P T #### [facility] [address] [place] [address] Dr. Tg Fierro Hematocrit (Bld) [Volume fraction] 40.7 % Normal 36.0-48.0 [facility] Comment on above: Performed By: #### P T #### [facility] [address] [place] [address] Dr. Tg Fierro Hemoglobin (Bld) [Mass/Vol] 13.2 g/dL Normal 12.0-16.0 [facility] Comment on above: Performed By: #### P T #### [facility] [address] [place] [address] Dr. Tg Fierro IG # 0.03 10e3/ul Normal 0.00-0.03 [facility] Comment on above: Performed By: #### P T #### [facility] [address] [place] [address] Dr. Tg Fierro IG % 0.5 % Normal 0.0-0.5 [facility] Comment on above: Performed By: #### P T #### [facility] [address] [place] [address] Dr. Tg Fierro LYMPH # 2.1 103/ul Normal 1.2-3.8 [facility] Comment on above: Performed By: #### P T #### [facility] [address] [place] [address] Dr. Tg Fierro Lymphocytes/100 WBC (Bld) 34.9 % Normal 20.5-60.0 [facility] Comment on above: Performed By: #### P T #### [facility] [address] [place] [address] Dr. Tg Fierro MANUAL DIFF REQ NO Normal [facility] Comment on above: Performed By: #### P T #### [facility] [address] [place] [address] Dr. Tg Fierro MCH (RBC) [Entitic mass] 30.5 pg Normal 26.7-34.0 [facility] Comment on above: Performed By: #### P T #### [facility] [address] [place] [address] Dr. Tg Fierro MCHC (RBC) [Mass/Vol] 32.4 g/dL Normal 29.9-35.2 [facility] Comment on above: Performed By: #### P T #### [facility] [address] [place] [address] Dr. Tg Fierro MCV (RBC) [Entitic vol] 94.0 fL Normal 81.0-99.0 [facility] Comment on above: Performed By: #### P T #### [facility] [address] [place] [address] Dr. Tg Fierro MONO # 0.4 103/ul Normal 0.3-0.8 [facility] Comment on above: Performed By: #### P T #### [facility] [address] [place] [address] Dr. Tg Fierro Monocytes/100 WBC (Bld) 7.1 % Normal 1.7-12.0 [facility] Comment on above: Performed By: #### P T #### [facility] [address] [place] [address] Dr. Tg Fierro NEUT # 3.2 103/ul Normal 1.4-6.5 [facility] Comment on above: Performed By: #### P T #### [facility] [address] [place] [address] Dr. Tg Fierro Neutrophils/100 WBC (Bld) 54.3 % Normal 43.0-75.0 [facility] Comment on above: Performed By: #### P T #### [facility] [address] [place] [address] Dr. Tg Fierro Platelet mean volume (Bld) [Entitic vol] 8.7 fL Critically low 9.5-13.5 [facility] Comment on above: Performed By: #### P T #### [facility] [address] [place] [address] Dr. Tg Fierro PLT 295 103/ul Normal 150-450 [facility] Comment on above: Performed By: #### P T #### [facility] [address] [place] [address] Dr. Tg Fierro RBC 4.33 106/ul Normal 4.20-5.40 [facility] Comment on above: Performed By: #### P T #### [facility] [address] [place] [address] Dr. Tg Fierro WBC 5.9 103/ul Normal 4.0-11.0 [facility] Comment on above: Performed By: #### P T #### [facility] [address] [place] [address] Dr. Tg Fierro PROF 14(COMP METB)on 023 Albumin [Mass/Vol] 3.8 g/dL Normal 3.4-5.0 [facility] Comment on above: Performed By: #### C MP #### [facility] [address] [place] [address] Dr. Tg Fierro Albumin/Globulin [Mass ratio] 1.2 {ratio} Normal [facility] Comment on above: Performed By: #### C MP #### [facility] [address] [address] [address] Tg Fierro ALP [Catalytic activity/Vol] 49 U/L Normal 46-116 [facility] Comment on above: Performed By: #### C MP #### [facility] [address] [place] [address] Dr. Tg Fierro ALT [Catalytic activity/Vol] 21 U/L Normal 14-59 [facility] Comment on above: Performed By: #### C MP #### [facility] [address] [place] [address] Dr. Tg Fierro Anion gap [Moles/Vol] 13.3 mmol/L Normal [facility] Comment on above: Performed By: #### C MP #### [facility] [address] [place] [address] Dr. Tg Fierro AST [Catalytic activity/Vol] 14 U/L Critically low 15-37 [facility] Comment on above: Performed By: #### C MP #### [facility] [address] [place] [address] Dr. Tg Fierro Bilirubin [Mass/Vol] 0.5 mg/dL Normal 0.2-1.0 [facility] Comment on above: Performed By: #### C MP #### [facility] [address] [place] [address] Dr. Tg Fierro Calcium [Mass/Vol] 9.5 mg/dL Normal 8.5-10.1 [facility] Comment on above: Performed By: #### C MP #### [facility] [address] [place] [address] Dr. Tg Fierro Chloride [Moles/Vol] 104 mmol/L Normal 98-107 [facility] Comment on above: Performed By: #### C MP #### [facility] [address] [place] [address] Dr. Tg Fierro CO2 [Moles/Vol] 29.3 mmol/L Normal 21.0-32.0 [facility] Comment on above: Performed By: #### C MP #### [facility] [address] [place] [address] Dr. Tg Fierro Creatinine [Mass/Vol] 0.93 mg/dL Normal 0.55-1.02 [facility] Comment on above: Performed By: #### C MP #### [facility] [address] [address] [address] Tg Fierro EGFR-AF CITIZEN [place] >60 Normal >=60 [facility] Comment on above: Performed By: #### C MP #### [facility] [address] [place] [address] Dr. Tg Fierro EGFR-NON AF CITIZEN OF [place] 59 mL/min/1.73m2 Critically low >=60 [facility] Comment on above: Performed By: #### C MP #### [facility] [address] [place] [address] Dr. Tg Fierro Globulin (S) [Mass/Vol] 3.2 g/dL Normal [facility] Comment on above: Performed By: #### C MP #### [facility] [address] [place] [address] Dr. Tg Fierro Glucose [Mass/Vol] 186 mg/dL Critically high 74-106 [facility] Comment on above: Performed By: #### C MP #### [facility] [address] [place] [address] Dr. Tg Fierro Potassium [Moles/Vol] 4.6 mmol/L Normal 3.5-5.1 [facility] Comment on above: Performed By: #### C MP #### [facility] [address] [place] [address] Dr. Tg Fierro Protein [Mass/Vol] 7.0 g/dL Normal 6.4-8.2 [facility] Comment on above: Performed By: #### C MP #### [facility] [address] [place] [address] Dr. Tg Fierro Sodium [Moles/Vol] 142 mmol/L Normal 136-145 [facility] Comment on above: Performed By: #### C MP #### [facility] [address] [place] [address] Dr. Tg Fierro Urea nitrogen [Mass/Vol] 15.0 mg/dL Normal 7.0-18.0 [facility] Comment on above: Performed By: #### C MP #### [facility] [address] [place] [address] Dr. Tg Fierro Urea nitrogen/Creatinine [Mass ratio] 16.1 mg/mg Normal [facility] Comment on above: Performed By: #### C MP #### [facility] [address] [place] [address] Dr. Tg Fierro SED RATE GERALDINEERGRENon 2022 SED RATE 9 mm/hr Normal <=30 [facility] Comment on above: Performed By: #### C MP #### [facility] [address] [place] [address] Dr. Tg Fierro PROTIMEon 10-14-2022 INR Coag (PPP) [Relative time] 1.94 {INR} Normal [facility] Comment on above: Performed By: #### P T #### [facility] [address] [place] [address] Dr. Tg Fierro INR GUIDELINES SEE BELOW Normal [facility] Comment on above: Result Comment: LAURENCE RED INR: 2.0 - 3.0 CONDITIONS NOT LISTED BELOW 2.5 - 3.5 FOR PROSTHETIC HEART VALVE REPLACEMENT 2.5 - 3.5 RECURRENT THROMBOSIS Performed By: #### P T #### [facility] [address] [place] [address] Dr. Tg Fierro PT Coag (PPP) [Time] 19.8 s Critically high 9.0-11.6 [facility] Comment on above: Performed By: #### P T #### [facility] [address] [place] [address] Dr. Tg Fierro CBC AUTO DIFFon 09-24-2022 BASO # 0.1 103/ul Normal 0.0-0.1 [facility] Comment on above: Performed By: #### P T #### [facility] [address] [address] [address] Tg Fierro Basophils/100 WBC (Bld) 0.7 % Normal 0.2-2.0 [facility] Comment on above: Performed By: #### P T #### [facility] [address] [address] [address] Tg Fierro EO # 0.3 103/ul Normal 0.0-0.7 [facility] Comment on above: Performed By: #### P T #### [facility] [address] [address] [address] Tg Fierro Eosinophils/100 WBC (Bld) 3.6 % Normal 0.9-7.0 [facility] Comment on above: Performed By: #### P T #### [facility] [address] [place] [address] Dr. Tg Fierro Erythrocyte distribution width (RBC) [Ratio] 13.4 % Normal 11.0-15.0 [facility] Comment on above: Performed By: #### P T #### [facility] [facility] [address] [place] [address] Dr. Tg Fierro Hematocrit (Bld) [Volume fraction] 38.4 % Normal 36.0-48.0 [facility] Comment on above: Performed By: #### P T #### [facility] [address] [place] [address] Dr. Tg Fierro Hemoglobin (Bld) [Mass/Vol] 12.7 g/dL Normal 12.0-16.0 [facility] Comment on above: Performed By: #### P T #### [facility] [address] [place] [address] Dr. Tg Fierro IG # 0.05 10e3/ul Critically high 0.00-0.03 [facility] Comment on above: Performed By: #### P T #### [facility] [address] [address] [address] Tg Fierro IG % 0.7 % Critically high 0.0-0.5 [facility] Comment on above: Performed By: #### P T #### [facility] [address] [address] [address] Tg Fierro LYMPH # 2.6 103/ul Normal 1.2-3.8 [facility] Comment on above: Performed By: #### P T #### [facility] [address] [address] [address] Tg Fierro Lymphocytes/100 WBC (Bld) 34.2 % Normal 20.5-60.0 [facility] Comment on above: Performed By: #### P T #### [facility] [address] [place] [address] Dr. Tg Fierro MANUAL DIFF REQ NO Normal [facility] Comment on above: Performed By: #### P T #### [facility] [address] [place] [address] Dr. Tg Fierro MCH (RBC) [Entitic mass] 31.2 pg Normal 26.7-34.0 [facility] Comment on above: Performed By: #### P T #### [facility] [address] [place] [address] Dr. Tg Fierro MCHC (RBC) [Mass/Vol] 33.1 g/dL Normal 29.9-35.2 [facility] Comment on above: Performed By: #### P T #### [facility] [address] [place] [address] Dr. Tg Fierro MCV (RBC) [Entitic vol] 94.3 fL Normal 81.0-99.0 [facility] Comment on above: Performed By: #### P T #### [facility] [address] [place] [address] Dr. Tg Fierro MONO # 0.6 103/ul Normal 0.3-0.8 [facility] Comment on above: Performed By: #### P T #### [facility] [address] [place] [address] Dr. Tg Fierro Monocytes/100 WBC (Bld) 8.1 % Normal 1.7-12.0 [facility] Comment on above: Performed By: #### P T #### [facility] [address] [address] [address] Tg Fierro NEUT # 4.1 103/ul Normal 1.4-6.5 [facility] Comment on above: Performed By: #### P T #### [facility] [address] [place] [address] Dr. Tg Fierro Neutrophils/100 WBC (Bld) 52.7 % Normal 43.0-75.0 [facility] Comment on above: Performed By: #### P T #### [facility] [address] [place] [address] Dr. Tg Fierro Platelet mean volume (Bld) [Entitic vol] 8.7 fL Critically low 9.5-13.5 [facility] Comment on above: Performed By: #### P T #### [facility] [address] [place] [address] Dr. Tg Fierro PLT 278 103/ul Normal 150-450 [facility] Comment on above: Performed By: #### P T #### [facility] [address] [place] [address] Dr. Tg Fierro RBC 4.07 106/ul Critically low 4.20-5.40 [facility] Comment on above: Performed By: #### P T #### [facility] [address] [place] [address] Dr. Tg Fierro WBC 7.7 103/ul Normal 4.0-11.0 [facility] Comment on above: Performed By: #### P T #### [facility] [address] [place] [address] Dr. Tg Fierro PROF 14(COMP METB)on 023 Albumin [Mass/Vol] 3.9 g/dL Normal 3.4-5.0 [facility] Comment on above: Performed By: #### C MP #### [facility] [address] [place] [address] Dr. Tg Fierro Albumin/Globulin [Mass ratio] 1.4 {ratio} Normal [facility] Comment on above: Performed By: #### C MP #### [facility] [address] [address] [address] Tg Fierro ALP [Catalytic activity/Vol] 59 U/L Normal 46-116 [facility] Comment on above: Performed By: #### C MP #### [facility] [address] [place] [address] Dr. Tg Fierro ALT [Catalytic activity/Vol] 21 U/L Normal 14-59 [facility] Comment on above: Performed By: #### C MP #### [facility] [address] [address] [address] Tg Fierro Anion gap [Moles/Vol] 10.8 mmol/L Normal [facility] Comment on above: Performed By: #### C MP #### [facility] [address] [place] [address] Dr. Tg Fierro AST [Catalytic activity/Vol] 9 U/L Critically low 15-37 [facility] Comment on above: Performed By: #### C MP #### [facility] [address] [place] [address] Dr. Tg Fierro Bilirubin [Mass/Vol] 0.3 mg/dL Normal 0.2-1.0 [facility] Comment on above: Performed By: #### C MP #### [facility] [address] [place] [address] Dr. Tg Fierro Calcium [Mass/Vol] 9.1 mg/dL Normal 8.5-10.1 [facility] Comment on above: Performed By: #### C MP #### [facility] [address] [place] [address] Dr. Tg Fierro Chloride [Moles/Vol] 104 mmol/L Normal 98-107 [facility] Comment on above: Performed By: #### C MP #### [facility] [address] [place] [address] Dr. Tg Fierro CO2 [Moles/Vol] 28.3 mmol/L Normal 21.0-32.0 [facility] Comment on above: Performed By: #### C MP #### [facility] [address] [place] [address] Dr. Tg Fierro Creatinine [Mass/Vol] 0.86 mg/dL Normal 0.55-1.02 [facility] Comment on above: Performed By: #### C MP #### [facility] [address] [address] [address] Tg Fierro EGFR-AF CITIZ[place] >60 Normal >=60 [facility] Comment on above: Performed By: #### C MP #### [facility] [address] [address] [address] Tg Fierro EGFR-NON AF CITIZEN OF [place] >60 Normal >=60 [facility] Comment on above: Performed By: #### C MP #### [facility] [address] [address] [address] Tg Fierro Globulin (S) [Mass/Vol] 2.7 g/dL Normal [facility] Comment on above: Performed By: #### C MP #### [facility] [address] [address] [address] Tg Fierro Glucose [Mass/Vol] 120 mg/dL Critically high 74-106 [facility] Comment on above: Performed By: #### C MP #### [facility] [address] [address] [address] Tg Fierro Potassium [Moles/Vol] 4.1 mmol/L Normal 3.5-5.1 [facility] Comment on above: Performed By: #### C MP #### [facility] [address] [address] [address] Tg Fierro Protein [Mass/Vol] 6.6 g/dL Normal 6.4-8.2 [facility] Comment on above: Performed By: #### C MP #### [facility] [address] [address] [address] Tg Fierro Sodium [Moles/Vol] 139 mmol/L Normal 136-145 [facility] Comment on above: Performed By: #### C MP #### [facility] [address] [address] [address] Tg Fierro Urea nitrogen [Mass/Vol] 13.0 mg/dL Normal 7.0-18.0 [facility] Comment on above: Performed By: #### C MP #### [facility] [address] [address] [address] Tg Fierro Urea nitrogen/Creatinine [Mass ratio] 15.1 mg/mg Normal [facility] Comment on above: Performed By: #### C MP #### [facility] [address] [address] [address] Tg Fierro PROTIMEon 09-24-2022 INR Coag (PPP) [Relative time] 1.35 {INR} Normal [facility] Comment on above: Performed By: #### P T #### [facility] [address] [place] [address] Dr. Tg Fierro INR GUIDELINES SEE BELOW Normal [facility] Comment on above: Result Comment: LAURENCE RED INR: 2.0 - 3.0 CONDITIONS NOT LISTED BELOW 2.5 - 3.5 FOR PROSTHETIC HEART VALVE REPLACEMENT 2.5 - 3.5 RECURRENT THROMBOSIS Performed By: #### P T #### [facility] [address] [place] [address] Dr. Tg Fierro PT Coag (PPP) [Time] 14.1 s Critically high 9.0-11.6 [facility] Comment on above: Performed By: #### P T #### [facility] [address] [place] [address] Dr. Tg Fierro SED RATE [facility] 2022 SED RATE 8 mm/hr Normal <=30 [facility] Comment on above: Performed By: #### C MP #### [facility] [address] [place] [address] Dr. Tg Fierro PROTIMEon 09-09-2022 INR Coag (PPP) [Relative time] 1.23 {INR} Normal [facility] Comment on above: Performed By: #### P T #### [facility] [address] [place] [address] Dr. Tg Fierro INR GUIDELINES SEE BELOW Normal [facility] Comment on above: Result Comment: LAURENCE RED INR: 2.0 - 3.0 CONDITIONS NOT LISTED BELOW 2.5 - 3.5 FOR PROSTHETIC HEART VALVE REPLACEMENT 2.5 - 3.5 RECURRENT THROMBOSIS Performed By: #### P T #### [facility] [address] [place], [place] [address] Dr. Tg Fierro PT Coag (PPP) [Time] 12.9 s Critically high 9.0-11.6 [facility] Comment on above: Performed By: #### P T #### [facility] [address] [place], [place] [address] Dr. Tg Fierro ECHOCARDIO M/2D COMPLETEon 0 09-02-2022 ECHOCARDIO M/2D COMPLETE Patient: WILDA SEN Exam Date: 09/02/2022 : 1945 Gender:F Ordering : DR JAYME PEREZ . Admission #: [id number] Family : Order #: [id number] CLICK HERE TO VIEW EXAM ECHOCARDIOGRAM REPORT [...] Bender M.D. on 09/03/2022 at 17:25 Normal [facility] GLYCOHEMOGLOBIN A1Con 2022 ADA RECOMMENDATION SEE BELOW Normal [facility] Comment on above: Result Comment: ADA RECOMMENDED LIMIT 4.0 - 6.0 ADA THERAPEUTIC TARGET < 7.0 ACTION SUGGESTED > 7.0 Performed By: #### A 1C #### [facility] [address] [place] [address] Dr. Tg Fierro Glucose [Mass/Vol] 148 mg/dL Normal [facility] Comment on above: Performed By: #### A 1C #### [facility] [address] [place] [address] Dr. Tg Fierro HbA1c (Bld) [Mass fraction] 6.8 % Critically high 4.5-6.2 [facility] Comment on above: Performed By: #### A 1C #### [facility] [address] [place] [address] Dr. Tg Fierro CBC AUTO DIFFon 08-05-2022 BASO # 0.1 103/ul Normal 0.0-0.1 [facility] Comment on above: Performed By: #### C BC #### [facility] [address] [place] [address] Dr. Tg Fierro Basophils/100 WBC (Bld) 0.8 % Normal 0.2-2.0 [facility] Comment on above: Performed By: #### C BC #### [facility] [address] [place] [address] Dr. Tg Fierro EO # 0.5 103/ul Normal 0.0-0.7 [facility] Comment on above: Performed By: #### C BC #### [facility] [address] [place] [address] Dr. Tg Fieror Eosinophils/100 WBC (Bld) 7.3 % Critically high 0.9-7.0 [facility] Comment on above: Performed By: #### C BC #### [facility] [address] [place] [address] Dr. Tg Fierro Erythrocyte distribution width (RBC) [Ratio] 13.4 % Normal 11.0-15.0 [facility] Comment on above: Performed By: #### C BC #### [facility] [address] [place] [address] Dr. Tg Fierro Hematocrit (Bld) [Volume fraction] 37.1 % Normal 36.0-48.0 [facility] Comment on above: Performed By: #### C BC #### [facility] [address] [place] [address] Dr. Tg Fierro Hemoglobin (Bld) [Mass/Vol] 12.9 g/dL Normal 12.0-16.0 [facility] Comment on above: Performed By: #### C BC #### [facility] [address] [place] [address] Dr. Tg Fierro IG # 0.03 10e3/ul Normal 0.00-0.03 [facility] Comment on above: Performed By: #### C BC #### [facility] [address] [place] [address] Dr. Tg Fierro IG % 0.5 % Normal 0.0-0.5 [facility] Comment on above: Performed By: #### C BC #### [facility] [address] [place] [address] Dr. Tg Fierro LYMPH # 2.3 103/ul Normal 1.2-3.8 [facility] Comment on above: Performed By: #### C BC #### [facility] [address] [place] [address] Dr. Tg Fierro Lymphocytes/100 WBC (Bld) 34.9 % Normal 20.5-60.0 [facility] Comment on above: Performed By: #### C BC #### [facility] [address] [place] [address] Dr. Tg Fierro MANUAL DIFF REQ NO Normal [facility] Comment on above: Performed By: #### C BC #### [facility] [address] [place] [address] Dr. Tg Fierro MCH (RBC) [Entitic mass] 31.0 pg Normal 26.7-34.0 [facility] Comment on above: Performed By: #### C BC #### [facility] [address] [place] [address] Dr. Tg Fierro MCHC (RBC) [Mass/Vol] 34.8 g/dL Normal 29.9-35.2 [facility] Comment on above: Performed By: #### C BC #### [facility] [address] [place] [address] Dr. Tg Fierro MCV (RBC) [Entitic vol] 89.2 fL Normal 81.0-99.0 [facility] Comment on above: Performed By: #### C BC #### [facility] [address] [place] [address] Dr. Tg Fierro MONO # 0.4 103/ul Normal 0.3-0.8 [facility] Comment on above: Performed By: #### C BC #### [facility] [address] [place] [address] Dr. Tg Fierro Monocytes/100 WBC (Bld) 6.1 % Normal 1.7-12.0 [facility] Comment on above: Performed By: #### C BC #### [facility] [address] [place] [address] Dr. Tg Fierro NEUT # 3.3 103/ul Normal 1.4-6.5 [facility] Comment on above: Performed By: #### C BC #### [facility] [address] [place] [address] Dr. Tg Fierro Neutrophils/100 WBC (Bld) 50.4 % Normal 43.0-75.0 [facility] Comment on above: Performed By: #### C BC #### [facility] [address] [place] [address] Dr. Tg Fierro Platelet mean volume (Bld) [Entitic vol] 8.6 fL Critically low 9.5-13.5 [facility] Comment on above: Performed By: #### C BC #### [facility] [address] [place] [address] Dr. Tg Fierro PLT 336 103/ul Normal 150-450 [facility] Comment on above: Performed By: #### C BC #### [facility] [address] [address] [address] Tg Fierro RBC 4.16 106/ul Critically low 4.20-5.40 [facility] Comment on above: Performed By: #### C BC #### [facility] [address] [address] [address] Tg Fierro WBC 6.4 103/ul Normal 4.0-11.0 [facility] Comment on above: Performed By: #### C BC #### [facility] [address] [place] [address] Dr. Tg Fierro PROF 14(COMP METB)on 023 Albumin [Mass/Vol] 3.9 g/dL Normal 3.4-5.0 [facility] Comment on above: Performed By: #### P T #### [facility] [address] [place] [address] Dr. Tg Fierro Albumin/Globulin [Mass ratio] 1.3 {ratio} Normal [facility] Comment on above: Performed By: #### P T #### [facility] [address] [place] [address] Dr. Tg Fierro ALP [Catalytic activity/Vol] 60 U/L Normal 46-116 [facility] Comment on above: Performed By: #### P T #### [facility] [address] [place] [address] Dr. Tg Fierro ALT [Catalytic activity/Vol] 21 U/L Normal 14-59 [facility] Comment on above: Performed By: #### P T #### [facility] [address] [place] [address] Dr. Tg Fierro Anion gap [Moles/Vol] 15.2 mmol/L Normal [facility] Comment on above: Performed By: #### P T #### [facility] [address] [address] [address] Tg Fierro AST [Catalytic activity/Vol] 14 U/L Critically low 15-37 [facility] Comment on above: Performed By: #### P T #### [facility] [address] [address] [address] Tg Fierro Bilirubin [Mass/Vol] 0.4 mg/dL Normal 0.2-1.0 [facility] Comment on above: Performed By: #### P T #### [facility] [address] [address] [address] Tg Fierro Calcium [Mass/Vol] 9.3 mg/dL Normal 8.5-10.1 [facility] Comment on above: Performed By: #### P T #### [facility] [address] [address] [address] Tg Fierro Chloride [Moles/Vol] 102 mmol/L Normal 98-107 [facility] Comment on above: Performed By: #### P T #### [facility] [address] [address] [address] Tg Fierro CO2 [Moles/Vol] 26.8 mmol/L Normal 21.0-32.0 [facility] Comment on above: Performed By: #### P T #### [facility] [address] [address] [address] Tg Fierro Creatinine [Mass/Vol] 0.74 mg/dL Normal 0.55-1.02 [facility] Comment on above: Performed By: #### P T #### [facility] [address] [address] [address] Tg Fierro EGFR-AF [place]IZ[place] >60 Normal >=60 [facility] Comment on above: Performed By: #### P T #### [facility] [address] [address] [address] Tg Fierro EGFR-NON AF CITIZEN [place] >60 Normal >=60 [facility] Comment on above: Performed By: #### P T #### [facility] [address] [address] [address] Tg Fierro Globulin (S) [Mass/Vol] 3.1 g/dL Normal [facility] Comment on above: Performed By: #### P T #### [facility] [address] [place] [address] Dr. Tg Fierro Glucose [Mass/Vol] 148 mg/dL Critically high 74-106 [facility] Comment on above: Performed By: #### P T #### [facility] [address] [address] [address] Tg Fierro Potassium [Moles/Vol] 4.0 mmol/L Normal 3.5-5.1 [facility] Comment on above: Performed By: #### P T #### [facility] [address] [place] [address] Dr. Tg Fierro Protein [Mass/Vol] 7.0 g/dL Normal 6.4-8.2 [facility] Comment on above: Performed By: #### P T #### [facility] [address] [place] [address] Dr. Tg Fierro Sodium [Moles/Vol] 140 mmol/L Normal 136-145 [facility] Comment on above: Performed By: #### P T #### [facility] [address] [place] [address] Dr. Tg Fierro Urea nitrogen [Mass/Vol] 12.0 mg/dL Normal 7.0-18.0 [facility] Comment on above: Performed By: #### P T #### [facility] [address] [place] [address] Dr. Tg Fierro Urea nitrogen/Creatinine [Mass ratio] 16.2 mg/mg Normal [facility] Comment on above: Performed By: #### P T #### [facility] [address] [place] [address] Dr. Tg Fierro SED RATE [facility] 2022 SED RATE 30 mm/hr Normal <=30 [facility] Comment on above: Performed By: #### S EDR #### [facility] [address] [place] [address] Dr. Tg Fierro CBC AUTO DIFFon 04-15-2022 BASO # 0.1 103/ul Normal 0.0-0.1 [facility] Comment on above: Performed By: #### C BC #### [facility] [address] [address] [address] Tg Fierro Basophils/100 WBC (Bld) 0.6 % Normal 0.2-2.0 [facility] Comment on above: Performed By: #### C BC #### [facility] [address] [address] [address] Tg Fierro EO # 0.2 103/ul Normal 0.0-0.7 [facility] Comment on above: Performed By: #### C BC #### [facility] [address] [address] [address] Tg Fierro Eosinophils/100 WBC (Bld) 3.1 % Normal 0.9-7.0 [facility] Comment on above: Performed By: #### C BC #### [facility] [address] [address] [address] Tg Fierro Erythrocyte distribution width (RBC) [Ratio] 13.6 % Normal 11.0-15.0 [facility] Comment on above: Performed By: #### C BC #### [facility] [address] [address] [address] Tg Fierro Hematocrit (Bld) [Volume fraction] 42.3 % Normal 36.0-48.0 [facility] Comment on above: Performed By: #### C BC #### [facility] [address] [place] [address] Dr. Tg Fierro Hemoglobin (Bld) [Mass/Vol] 13.2 g/dL Normal 12.0-16.0 [facility] Comment on above: Performed By: #### C BC #### [facility] [address] [address] [address] Tg Fierro IG # 0.04 10e3/ul Critically high 0.00-0.03 [facility] Comment on above: Performed By: #### C BC #### [facility] [address] [place] [address] Dr. Tg Fierro IG % 0.5 % Normal 0.0-0.5 [facility] Comment on above: Performed By: #### C BC #### [facility] [address] [place] [address] Dr. Tg Fierro LYMPH # 2.5 103/ul Normal 1.2-3.8 [facility] Comment on above: Performed By: #### C BC #### [facility] [address] [place] [address] Dr. Tg Fierro Lymphocytes/100 WBC (Bld) 31.6 % Normal 20.5-60.0 [facility] Comment on above: Performed By: #### C BC #### [facility] [address] [place] [address] Dr. Tg Fierro MANUAL DIFF REQ NO Normal [facility] Comment on above: Performed By: #### C BC #### [facility] [address] [place] [address] Dr. Tg Fierro MCH (RBC) [Entitic mass] 30.3 pg Normal 26.7-34.0 [facility] Comment on above: Performed By: #### C BC #### [facility] [address] [place] [address] Dr. Tg Fierro MCHC (RBC) [Mass/Vol] 31.2 g/dL Normal 29.9-35.2 [facility] Comment on above: Performed By: #### C BC #### [facility] [address] [place] [address] Dr. Tg Fierro MCV (RBC) [Entitic vol] 97.0 fL Normal 81.0-99.0 [facility] Comment on above: Performed By: #### C BC #### [facility] [address] [place] [address] Dr. Tg Fierro MONO # 0.5 103/ul Normal 0.3-0.8 [facility] Comment on above: Performed By: #### C BC #### [facility] [address] [place] [address] Dr. Tg Fierro Monocytes/100 WBC (Bld) 6.3 % Normal 1.7-12.0 [facility] Comment on above: Performed By: #### C BC #### [facility] [address] [place] [address] Dr. Tg Fierro NEUT # 4.5 103/ul Normal 1.4-6.5 [facility] Comment on above: Performed By: #### C BC #### [facility] [address] [place] [address] Dr. Tg Fierro Neutrophils/100 WBC (Bld) 57.9 % Normal 43.0-75.0 [facility] Comment on above: Performed By: #### C BC #### [facility] [address] [place] [address] Dr. Tg Fierro Platelet mean volume (Bld) [Entitic vol] 8.6 fL Critically low 9.5-13.5 [facility] Comment on above: Performed By: #### C BC #### [facility] [address] [place] [address] Dr. Tg Fierro PLT 295 103/ul Normal 150-450 [facility] Comment on above: Performed By: #### C BC #### [facility] [address] [place] [address] Dr. Tg Fierro RBC 4.36 106/ul Normal 4.20-5.40 [facility] Comment on above: Performed By: #### C BC #### [facility] [address] [place] [address] Dr. Tg Fierro WBC 7.8 103/ul Normal 4.0-11.0 [facility] Comment on above: Performed By: #### C BC #### [facility] [address] [place] [address] Dr. Tg Fierro PROF 14(COMP METB)on 022 Albumin [Mass/Vol] 4.5 g/dL Normal 3.4-5.0 [facility] Comment on above: Performed By: #### C MP #### [facility] [address] [place] [address] Dr. Tg Fierro Albumin/Globulin [Mass ratio] 1.5 {ratio} Normal [facility] Comment on above: Performed By: #### C MP #### [facility] [address] [address] [address] Tg Fierro ALP [Catalytic activity/Vol] 62 U/L Normal 46-116 [facility] Comment on above: Performed By: #### C MP #### [facility] [address] [address] [address] Tg Fierro ALT [Catalytic activity/Vol] 25 U/L Normal 14-59 [facility] Comment on above: Performed By: #### C MP #### [facility] [address] [address] [address] Tg Fierro Anion gap [Moles/Vol] 10.6 mmol/L Normal [facility] Comment on above: Performed By: #### C MP #### [facility] [address] [address] [address] Tg Fierro AST [Catalytic activity/Vol] 12 U/L Critically low 15-37 [facility] Comment on above: Performed By: #### C MP #### [facility] [address] [address] [address] Tg Fierro Bilirubin [Mass/Vol] 0.5 mg/dL Normal 0.2-1.0 [facility] Comment on above: Performed By: #### C MP #### [facility] [address] [address] [address] Tg Fierro Calcium [Mass/Vol] 9.8 mg/dL Normal 8.5-10.1 [facility] Comment on above: Performed By: #### C MP #### [facility] [address] [address] [address] Tg Fierro Chloride [Moles/Vol] 102 mmol/L Normal 98-107 [facility] Comment on above: Performed By: #### C MP #### [facility] [address] [address] [address] Tg Fierro CO2 [Moles/Vol] 31.8 mmol/L Normal 21.0-32.0 [facility] Comment on above: Performed By: #### C MP #### [facility] [address] [address] [address] Tg Fierro Creatinine [Mass/Vol] 0.88 mg/dL Normal 0.55-1.02 [facility] Comment on above: Performed By: #### C MP #### [facility] [address] [address] [address] Tg Fierro EGFR-AF CITIZEN [place] >60 Normal >=60 [facility] Comment on above: Performed By: #### C MP #### [facility] [address] [address] [address] Tg Fierro EGFR-NON AF CITIZEN OF [place] >60 Normal >=60 [facility] Comment on above: Performed By: #### C MP #### [facility] [address] [address] [address] Tg Fierro Globulin (S) [Mass/Vol] 3.1 g/dL Normal [facility] Comment on above: Performed By: #### C MP #### [facility] [address] [address] [address] Tg Fierro Glucose [Mass/Vol] 187 mg/dL Critically high 74-106 [facility] Comment on above: Performed By: #### C MP #### [facility] [address] [address] [address] Tg Fierro Potassium [Moles/Vol] 4.4 mmol/L Normal 3.5-5.1 [facility] Comment on above: Performed By: #### C MP #### [facility] [address] [address] [address] Tg Fierro Protein [Mass/Vol] 7.6 g/dL Normal 6.4-8.2 [facility] Comment on above: Performed By: #### C MP #### [facility] [address] [address] [address] Tg Fierro Sodium [Moles/Vol] 140 mmol/L Normal 136-145 [facility] Comment on above: Performed By: #### C MP #### [facility] [address] [place] [address] Dr. Tg Fierro Urea nitrogen [Mass/Vol] 14.0 mg/dL Normal 7.0-18.0 [facility] Comment on above: Performed By: #### C MP #### [facility] [address] [place] [address] Dr. Tg Fierro Urea nitrogen/Creatinine [Mass ratio] 15.9 mg/mg Normal [facility] Comment on above: Performed By: #### C MP #### [facility] [address] [place] [address] Dr. Tg Fierro SED RATE WESTERGRENon 2021 SED RATE 5 mm/hr Normal <=30 [facility] Comment on above: Performed By: #### S EDR #### [facility] [address] [place] [address] Dr. Tg Fierro CBC AUTO DIFFon 02-07-2022 BASO # 0.0 103/ul Normal 0.0-0.1 [facility] Comment on above: Performed By: #### P T #### [facility] [address] [place] [address] Dr. Tg Fierro Basophils/100 WBC (Bld) 0.6 % Normal 0.2-2.0 [facility] Comment on above: Performed By: #### P T #### [facility] [address] [place] [address] Dr. Tg Fierro EO # 0.4 103/ul Normal 0.0-0.7 [facility] Comment on above: Performed By: #### P T #### [facility] [address] [place] [address] Dr. Tg Fierro Eosinophils/100 WBC (Bld) 5.4 % Normal 0.9-7.0 [facility] Comment on above: Performed By: #### P T #### [facility] [address] [place] [address] Dr. Tg Fierro Erythrocyte distribution width (RBC) [Ratio] 13.5 % Normal 11.0-15.0 [facility] Comment on above: Performed By: #### P T #### [facility] [address] [place] [address] Dr. Tg Fierro Hematocrit (Bld) [Volume fraction] 39.4 % Normal 36.0-48.0 [facility] Comment on above: Performed By: #### P T #### [facility] [address] [place] [address] Dr. Tg Fierro Hemoglobin (Bld) [Mass/Vol] 12.8 g/dL Normal 12.0-16.0 [facility] Comment on above: Performed By: #### P T #### [facility] [address] [place] [address] Dr. Tg Fierro IG # 0.02 10e3/ul Normal 0.00-0.03 [facility] Comment on above: Performed By: #### P T #### [facility] [address] [place] [address] Dr. Tg Fierro IG % 0.3 % Normal 0.0-0.5 [facility] Comment on above: Performed By: #### P T #### [facility] [address] [place] [address] Dr. Tg Fierro LYMPH # 2.4 103/ul Normal 1.2-3.8 [facility] Comment on above: Performed By: #### P T #### [facility] [address] [place] [address] Dr. Tg Fierro Lymphocytes/100 WBC (Bld) 36.2 % Normal 20.5-60.0 [facility] Comment on above: Performed By: #### P T #### [facility] [address] [place] [address] Dr. Tg Fierro MANUAL DIFF REQ NO Normal [facility] Comment on above: Performed By: #### P T #### [facility] [address] [place] [address] Dr. gT Fierro MCH (RBC) [Entitic mass] 31.0 pg Normal 26.7-34.0 [facility] Comment on above: Performed By: #### P T #### [facility] [address] [place] [address] Dr. Tg Fierro MCHC (RBC) [Mass/Vol] 32.5 g/dL Normal 29.9-35.2 [facility] Comment on above: Performed By: #### P T #### [facility] [address] [place] [address] Dr. Tg Fierro MCV (RBC) [Entitic vol] 95.4 fL Normal 81.0-99.0 [facility] Comment on above: Performed By: #### P T #### [facility] [address] [place] [address] Dr. Tg Fierro MONO # 0.5 103/ul Normal 0.3-0.8 [facility] Comment on above: Performed By: #### P T #### [facility] [address] [place] [address] Dr. Tg Fierro Monocytes/100 WBC (Bld) 8.0 % Normal 1.7-12.0 [facility] Comment on above: Performed By: #### P T #### [facility] [address] [place] [address] Dr. Tg Fierro NEUT # 3.3 103/ul Normal 1.4-6.5 [facility] Comment on above: Performed By: #### P T #### [facility] [address] [place] [address] Dr. Tg Fierro Neutrophils/100 WBC (Bld) 49.5 % Normal 43.0-75.0 [facility] Comment on above: Performed By: #### P T #### [facility] [address] [place] [address] Dr. Tg Fierro Platelet mean volume (Bld) [Entitic vol] 8.7 fL Critically low 9.5-13.5 [facility] Comment on above: Performed By: #### P T #### [facility] [address] [place] [address] Dr. Tg Fierro PLT 276 103/ul Normal 150-450 [facility] Comment on above: Performed By: #### P T #### [facility] [address] [place] [address] Dr. Tg Fierro RBC 4.13 106/ul Critically low 4.20-5.40 [facility] Comment on above: Performed By: #### P T #### [facility] [address] [address] [address] Tg Fierro WBC 6.7 103/ul Normal 4.0-11.0 [facility] Comment on above: Performed By: #### P T #### [facility] [address] [address] [address] Tg Fierro GLYCOHEMOGLOBIN A1Con 2021 ADA RECOMMENDATION SEE BELOW Normal [facility] Comment on above: Result Comment: ADA RECOMMENDED LIMIT 4.0 - 6.0 ADA THERAPEUTIC TARGET < 7.0 ACTION SUGGESTED > 7.0 Performed By: #### A 1C #### [facility] [address] [place] [address] Dr. Tg Fierro Glucose [Mass/Vol] 151 mg/dL Normal [facility] Comment on above: Performed By: #### A 1C #### [facility] [address] [place] [address] Dr. Tg Fierro HbA1c (Bld) [Mass fraction] 6.9 % Critically high 4.5-6.2 [facility] Comment on above: Performed By: #### A 1C #### [facility] [address] [place] [address] Dr. Tg Fierro PROF 14(COMP METB)on 022 Albumin [Mass/Vol] 3.8 g/dL Normal 3.4-5.0 [facility] Comment on above: Performed By: #### P T #### [facility] [address] [place] [address] Dr. Tg Fierro Albumin/Globulin [Mass ratio] 1.3 {ratio} Normal [facility] Comment on above: Performed By: #### P T #### [facility] [address] [place] [address] Dr. Tg Fierro ALP [Catalytic activity/Vol] 43 U/L Critically low 46-116 [facility] Comment on above: Performed By: #### P T #### [facility] [address] [address] [address] Tg Fierro ALT [Catalytic activity/Vol] 19 U/L Normal 14-59 [facility] Comment on above: Performed By: #### P T #### [facility] [address] [place] [address] Dr. Tg Fierro Anion gap [Moles/Vol] 13.7 mmol/L Normal [facility] Comment on above: Performed By: #### P T #### [facility] [address] [address] [address] Tg Fierro AST [Catalytic activity/Vol] 11 U/L Critically low 15-37 [facility] Comment on above: Performed By: #### P T #### [facility] [address] [place] [address] Dr. Tg Fierro Bilirubin [Mass/Vol] 0.4 mg/dL Normal 0.2-1.0 [facility] Comment on above: Performed By: #### P T #### [facility] [address] [place] [address] Dr. Tg Fierro Calcium [Mass/Vol] 9.1 mg/dL Normal 8.5-10.1 [facility] Comment on above: Performed By: #### P T #### [facility] [address] [place] [address] Dr. Tg Fierro Chloride [Moles/Vol] 104 mmol/L Normal 98-107 [facility] Comment on above: Performed By: #### P T #### [facility] [address] [place] [address] Dr. Tg Fierro CO2 [Moles/Vol] 28.5 mmol/L Normal 21.0-32.0 [facility] Comment on above: Performed By: #### P T #### [facility] [address] [place] [address] Dr. Tg Fierro Creatinine [Mass/Vol] 0.77 mg/dL Normal 0.55-1.02 [facility] Comment on above: Performed By: #### P T #### [facility] [address] [place] [address] Dr. Tg Fierro EGFR-AF CITIZ[place] >60 Normal >=60 [facility] Comment on above: Performed By: #### P T #### [facility] [address] [address] [address] Tg Fierro EGFR-NON AF CITIZ[place] >60 Normal >=60 [facility] Comment on above: Performed By: #### P T #### [facility] [address] [address] [address] Tg Fierro Globulin (S) [Mass/Vol] 3.0 g/dL Normal [facility] Comment on above: Performed By: #### P T #### [facility] [address] [address] [address] Tg Fierro Glucose [Mass/Vol] 124 mg/dL Critically high 74-106 [facility] Comment on above: Performed By: #### P T #### [facility] [address] [address] [address] Tg Fierro Potassium [Moles/Vol] 4.2 mmol/L Normal 3.5-5.1 [facility] Comment on above: Performed By: #### P T #### [facility] [address] [place] [address] Dr. Tg Fierro Protein [Mass/Vol] 6.8 g/dL Normal 6.4-8.2 [facility] Comment on above: Performed By: #### P T #### [facility] [address] [address] [address] Tg Fierro Sodium [Moles/Vol] 142 mmol/L Normal 136-145 [facility] Comment on above: Performed By: #### P T #### [facility] [address] [address] [address] Tg Fierro Urea nitrogen [Mass/Vol] 12.0 mg/dL Normal 7.0-18.0 [facility] Comment on above: Performed By: #### P T #### [facility] [address] [address] [address] Tg Fierro Urea nitrogen/Creatinine [Mass ratio] 15.6 mg/mg Normal [facility] Comment on above: Performed By: #### P T #### [facility] [address] [address] [address] Tg Fierro SED RATE [facility] 2021 SED RATE 8 mm/hr Normal <=30 [facility] Comment on above: Performed By: #### C MP #### [facility] [address] [address] [address] Tg Fierro COVID Quick Testingon 2020 Result Positive [facility] Other Vital Signs Date Time Vital Sign Value Performing Clinician Facility 07-12-2024 11:03-0500 Diastolic blood pressure 66 mm[Hg] Williams CORA [facility] 07-12-2024 11:03-0500 Heart rate 77 /min Williamschilo SHEPHERD [facility] 07-12-2024 11:03-0500 Systolic blood pressure 131 mm[Hg] Williams SHEPHERD [facility] 04-15-2024 14:16-0400 Body height 160 cm Jayme Perez MD Work Phone: [facility] 04-15-2024 14:16-0400 Body mass index (BMI) [Ratio] 21.79 kg/m2 Jayme Perez MD Work Phone: [facility] 04-15-2024 14:16-0400 Body weight 55.79 kg Jayme Perez MD Work Phone: [facility] 04-15-2024 14:16-0400 Diastolic blood pressure 70 mm[Hg] Jayme Perez MD Work Phone: [facility] 04-15-2024 14:16-0400 Heart rate 87 /min Jayme Perez MD Work Phone: [facility] 04-15-2024 14:16-0400 SaO2% (BldA) [Mass fraction] 98 % Jayme Perez MD Work Phone: [facility] 04-15-2024 14:16-0400 Systolic blood pressure 120 mm[Hg] Jayme Perez MD Work Phone: [facility] 10-14-2023 09:09-0400 Body temperature 98.6 [degF] [employer] [facility] 10-14-2023 09:09-0400 Diastolic blood pressure 61 mm[Hg] Williams Sangart [facility] 10-14-2023 09:09-0400 Heart rate 80 /min Williams Sangart [facility] 10-14-2023 09:09-0400 Respiratory rate 16 /min Williams Sangart [facility] 10-14-2023 09:09-0400 Systolic blood pressure 115 mm[Hg] Williams Sangart [facility] 08-13-2023 10:47-0500 Blood Pressure Location Renato SANTACRUZ [facility] 08-13-2023 10:47-0500 Diastolic blood pressure 62 mm[Hg] Renato SANTACRUZ [facility] 08-13-2023 10:47-0500 Heart rate 82 /min Renato SANTACRUZ [facility] 08-13-2023 10:47-0500 Respiratory rate 16 /min Renato SANTACRUZ [facility] 08-13-2023 10:47-0500 Systolic blood pressure 105 mm[Hg] Renato SANTACRUZ [facility] 08-07-2023 09:48-0500 Body height 160 cm Jayme Perez MD Work Phone: [facility] 08-07-2023 09:48-0500 Body mass index (BMI) [Ratio] 24.45 kg/m2 Jayme Perez MD Work Phone: [facility] 08-07-2023 09:48-0500 Body weight 62.6 kg Jayme Perez MD Work Phone: [facility] 08-07-2023 09:48-0500 Heart rate 57 /min Jayme Perez MD Work Phone: [facility] 08-07-2023 09:48-0500 SaO2% (BldA) [Mass fraction] 98 % Jayme Perez MD Work Phone: [facility] 07-25-2023 09:20-0500 Body height 160.02 cm Lou Glover Other [facility] Other 07-25-2023 09:20-0500 Body mass index (BMI) [Ratio] 23.91 kg/m2 Lou Glover Other [facility] Other 07-25-2023 09:20-0500 Body temperature 97.7 [degF] Lou Glover Other [facility] Other 07-25-2023 09:20-0500 Body weight 61.24 kg Lou Glover Other [facility] Other 07-25-2023 09:20-0500 Diastolic blood pressure 74 mm[Hg] Lou Glover Other [facility] Other 07-25-2023 09:20-0500 Respiratory rate 18 /min Lou Glover Other [facility] Other 07-25-2023 09:20-0500 SaO2% (BldA) [Mass fraction] 96 % Lou Glover Other [facility] Other 07-25-2023 09:20-0500 Systolic blood pressure 120 mm[Hg] Lou Glover Other [facility] Other 03-26-2023 13:15-0400 Body height 160.02 cm MD Jayme Perez Work Phone: [facility] 03-26-2023 13:15-0400 Body temperature 98.2 [degF] MD Jayme Perez Work Phone: [facility] 03-26-2023 13:15-0400 Body weight 66 kg MD Jayme Perez Work Phone: [facility] 03-26-2023 13:15-0400 Diastolic blood pressure 71 mm[Hg] MD Jayme Perez Work Phone: [facility] 03-26-2023 13:15-0400 Heart rate 87 /min MD Jayme Perez Work Phone: [facility] 03-26-2023 13:15-0400 Respiratory rate 16 /min MD Jayme Perez Work Phone: [facility] 03-26-2023 13:15-0400 SaO2% (BldA) [Mass fraction] 97 % MD Jayme Perez Work Phone: [facility] 03-26-2023 13:15-0400 Systolic blood pressure 117 mm[Hg] MD Jayme Perez Work Phone: [facility] 05-21-2021 13:15-0500 Body height 160.02 cm Astrid Baker Other [facility] Other 05-21-2021 13:15-0500 Body mass index (BMI) [Ratio] 23.91 kg/m2 Astrid Baker Other [facility] Other 05-21-2021 13:15-0500 Body temperature 97.3 [degF] Astrid Baker Other [facility] Other 05-21-2021 13:15-0500 Body weight 61.24 kg Astrid Baker Other [facility] Other 05-21-2021 13:15-0500 SaO2% (BldA) [Mass fraction] 94 % Astrid Baker Other [facility] Other Encounters Encounter Date Encounter Type Care Provider Facility Start: 10-16-2024 End: 10-16-2024 Refill Jayme Perez MD Work Phone: [facility] Comment on above: Paroxysmal atrial fi brillation ([facility] Start: 10-09-2024 End: 10-11-2024 Refill Jayme Perez MD Work Phone: [facility] Comment on above: Type 2 diabetes nancie itus with stage 3a chronic kidney disease, without long-term current use of insulin ([facility]) ([facility] Start: 09-27-2024 End: 09-27-2024 Clinisync Result Encounter Jayme Perez MD Work Phone: [facility] Unsolicited Start: 09-27-2024 End: 09-27-2024 Clinisync Result Encounter Jayme Perez MD Work Phone: [facility] Unsolicited Start: 09-13-2024 End: 09-13-2024 Clinisync Result Encounter Jayme Perez MD Work Phone: [facility] Unsolicited Start: 09-13-2024 End: 09-13-2024 Clinisync Result Encounter Jayme Perez MD Work [...] Start: 07-12-2024 End: 07-12-2024 ambulatory Williams SHEPHERD Facility:[facility] Start: 07-12-2024 End: 07-12-2024 Patient encounter procedure Williams SHEPHERD [facility] Start: 07-01-2024 End: 07-01-2024 Clinisync Result [...] Paroxysmal atrial fi brillation (CMS/HCC) (Primary Dx); skilled nursing current use of anticoagulant; Type 2 diabetes [...] encounter procedure MD Jayme Perez Work Phone: [facility] [address] Work Phone: Start: 03-31-2024 End: 03-31-2024 ambulatory MD Jayme Perez Work Phone: [facility] Work Phone: Start: 03-29-2024 End: [...] of insulin (HCC) ([facility]) Start: 03-17-2024 End: 03-17-2024 Clinisync Result Encounter Jayme Perez MD Work Phone: [facility] Unsolicited Start: 03-17-2024 End: 03-17-2024 Clinisync Result Encounter Jayme Perez MD Work Phone: [facility] Unsolicited Start: 12-31-2023 End: 12-31-2023 ambulatory FELICIA FARMER Not Available Start: 10-14-2023 End: 10-14-2023 ambulatory Williams SHEPHERD Facility:[facility] Start: 10-14-2023 End: 10-14-2023 Patient encounter procedure Williams Venegas COR[facility] [place] Start: 09-01-2023 End: 09-01-2023 ambulatory FELICIA Mejias HILLARY Not Available Start: 08-20-2023 Clinisync Result Encounter Generic External Data Provider [facility] Unsolicited Start: 08-20-2023 Clinisync Result Encounter Generic External Data Provider [facility] Unsolicited Start: 08-13-2023 End: 08-14-2023 ambulatory Renato SANTACRUZ Facility:[id number] Start: 08-13-2023 End: 08-13-2023 Patient encounter procedure Renato SANTACRUZ 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; Psoriatic arthropathy (CMS/HCC); Gastroesophageal reflux disease without esophagitis Start: 08-07-2023 End: 08-07-2023 ambulatory JAYME PEREZ Not Available Start: 07-25-2023 End: 07-25-2023 ambulatory Lou Glover Other [employer] Other Start: 07-25-2023 Office outpatient vi sit 25 minutes Lou Glover [facility] [place] Start: 04-07-2023 End: 04-07-2023 ambulatory MD Jayme Perez Work Phone: [facility] Work Phone: Start: 04-07-2023 End: 04-07-2023 Departed Referred MD Jayme Perez Work Phone: [facility] [place] Start: 03-26-2023 End: 03-26-2023 Patient encounter procedure MD Jayme Perez Work Phone: [facility] Work Phone: Start: 03-20-2023 End: 03-20-2023 Lab Drop off Williams SHEPHERD [facility] Start: 03-20-2023 End: 03-20-2023 Patient encounter procedure Williams SHEPHERD [facility] Start: 11-11-2022 End: 12-11-[address] JAYME [...] Facility: Start: 05-21-2021 End: 05-21-2021 ambulatory Astrid Ryanault Other [employer] Other Start: 05-21-2021 Office outpatient vi sit 15 minutes Astrid Baker [facility] [place] Procedures Date Procedure Procedure Detail Performing Clinician Start: 09-27-2024 [facility] PROTHROMBIN T [place] INR W/O COUM Jayme Perez MD Work Phone: Start: 09-13-2024 [facility] PROTHROMBIN T [place] INR W/O COUM Jayme Perez MD Work Phone: Start: 08-17-2024 [facility] PROTHROMBIN T [place] INR W/O COUM Jayme Perez MD Work Phone: Start: 08-04-2024 Computerized ophthal omar imaging optic nerve Felicia Farmer DO Work Phone: Start: 08-04-2024 End: 08-04-2024 Ophth medical xm&eval comprhnsv estab pt 1/> Glaucoma suspect of both eyes Felicia Farmer DO Work Phone: Comment on above: Glaucoma suspect of both eyes (Primary Dx); Type 2 diabetes mellitus with stage 3a chronic kidney disease, without long-term current use of insulin (HCC) ([facility]/HCC); Dry eyes; Blepharitis of upper and lower [...] lobectomy of lung Pa gamal SANTACRUZ Tonsillectomy Rentao SANTACRUZ Plan of Treatment Date Care Activity Detail Author Start: 08-04-2026 Glaucoma screening Diabetes: R etinopathy Screening [facility] Start: 12-30-2025 Glaucoma screening Diabetes: R etinopathy Screening [facility] Start: 09-13-2025 Pneumococcal Vaccine : 65+ Years (1 of 2 - PCV) Pneumococcal Vaccine: 65+ Years (1 of 2 - PCV) [facility] Comment on above: Postponed from 04/06 (Patient Refused) Start: 05-19-2025 Glaucoma screening Diabetes: R etinopathy Screening [facility] Start: 03-14-2025 Influenza vaccination Influenz a Vaccine (Season Ended) [facility] Start: 02-02-2025 End: 02-02-2025 Patient encounter procedure 02/02/2025 1:30 PM EDT Office Visit [facility] [address] [place] [address] Felicia Farmer DO [address] [place] [address] [facility] Start: 01-10-2025 Influenza vaccination Influenza Vacc ine (#1) [facility] Comment on above: Postponed from 03/14 (Patient Refused) Start: 11-04-2024 End: 11-04-2024 Patient encounter procedure 11/04/2024 2:00 PM EDT Office Visit [facility] [address] [place] [address] Jayme Perez MD [address] [place] [address] (Fax) [facility] Start: 10-21-2024 End: 10-21-2024 Patient encounter procedure 10/21/2024 10:30 AM EDT Office Visit [facility] [address] [place] [address] Jayme Perez MD [address] [place] [address] (Fax) [facility] Start: 10-14-2024 End: 04-15-2025 T3, reverse T3, reverse Lab Routine Chronic fatigue Expected: 10/14/2024 (Approximate), Expires: 04/15/2025 [facility] Comment on above: Expected: 10/14/2024 (Approximate), Expires: 04/15/2025 Start: 10-14-2024 End: 04-15-2025 Thyrotropin [Units/volume] in Serum or Plasma TSH Lab Routine Chronic fatigue Expected: 10/14/2024 (Approximate), Expires: 04/15/2025 [facility] Comment on above: Expected: 10/14/2024 (Approximate), Expires: 04/15/2025 Start: 10-14-2024 End: 04-15-2025 Thyroxine (T4) free [Mass/volume] in Serum or Plasma T4, free Lab Routine Chronic fatigue Expected: 10/14/2024 (Approximate), Expires: 04/15/2025 [facility] Comment on above: Expected: 10/14/2024 (Approximate), Expires: 04/15/2025 Start: 10-14-2024 End: 04-15-2025 Triiodothyronine (T3) [Mass/volume] in Serum or Plasma T3 Lab Routine Chronic fatigue Expected: 10/14/2024 (Approximate), Expires: 04/15/2025 [facility] Work Phone: Comment on above: Expected: 10/14/2024 (Approximate), Expires: 04/15/2025 Start: 10-14-2024 End: 04-15-2025 Triiodothyronine (T3) Free [Mass/volume] in Serum or Plasma T3, free Lab Routine Chronic fatigue Expected: 10/14/2024 (Approximate), Expires: 04/15/2025 [facility] Comment on above: Expected: 10/14/2024 (Approximate), Expires: 04/15/2025 Start: 08-04-2024 End: 08-04-2024 Patient encounter procedure [facility] Comment on above: Arrived Start: 05-22-2024 Medicare Annual Well ness (AWV) Medicare Annual Wellness (AWV) [facility] Start: 04-15-2024 End: 04-15-2024 Patient encounter procedure 04/15/2024 2:30 PM EDT Office Visit [facility] [address] [facility] [address] [place] [address] Jayme Perez MD [address] [place] [address] (Fax) [facility] Start: 03-14-2024 Influenza vaccination Influenza Vacc ine (#1) [facility] Start: 10-26-2023 Urine screening for protein Diabetes: Urine Protein Screening [facility] Start: 09-01-2023 End: 09-01-2023 Patient encounter procedure 09/01/2023 10:30 AM EST Office Visit [facility] [address] [place] [address] Felicia Farmer DO [address] [place] [address] [facility] Start: 05-06-2023 Hemoglobin A1c measurement Sharmin betes: Hemoglobin A1C [facility] Start: 04-07-2023 Abdomen endoscopy OR Cysto/Retro/Stent/Ston e/Holmium Laser (Right) [facility] Start: 03-14-2023 Influenza vaccination Influenza Vacc ine (#1) [facility] Start: 09-12-2020 Urine screening for protein Diabetes: Urine Protein Screening [facility] Start: 1951 Pneumococcal Vaccine : 65+ Years (1 - PCV) Pneumococcal Vaccine: 65+ Years (1 - PCV) [facility] Start: 1951 Pneumococcal Vaccine : 65+ Years (1 of 2 - PCV) Pneumococcal Vaccine: 65+ Years (1 of 2 - PCV) [facility] Immunizations Immunization Date Immunization Notes Care Provider Yaya oswald NEGATED: Highlighted row has not occurred!08-13-2023 influenza virus vaccine, unspecified formulation Renato SANTACRUZ [facility] NEGATED: Highlighted row has not occurred!08-13-2023 SARS-CoV-2 mRNA (tozinameran 5y-11y) vaccine Renato SANTACRUZ [facility] NEGATED: Highlighted row has not occurred!09-21-2019 influenza virus vaccine, live, attenuated, for intranasal use [employer] [facility] NEGATED: Highlighted row has not occurred!08-20-2019 influenza virus vaccine, live, attenuated, for intranasal use [employer] [facility] Payers Date Payer Category Payer Self-pay [id number] 2023 Private Health Insurance [id number] 2022 Unknown [place]IZ[place] CO CITIZEN [place] CONT[place] CO [id number] 2022-Present [address] [address] [place] [address] [id number] 2022 Medicare [id number] [id number] 2002 Medicare [id number]. [id number] .[id number] 1959 Medicare [id number] 2.16.840.1.728038.19 1959 Unknown [id number] 1946 Unknown [id number] 2.16.840.1.167332.3.579 .2.593 1946 Unknown [id number] 2.16.840.1.739589.3.579 .2.593 1946 Unknown [id number] 2.16.840.1.649017.3.579 .2.593 1946 Unknown [id number] 2.16.840.1.277982.3.579 .2.593 1946 Unknown [id number] 2.16.840.1.205394.3.579 .2.593 1946 Unknown [id number] 2.16.840.1.100214.3.579 .2.593 1946 Unknown [id number] 2.16.840.1.153421.3.579 .2.593 1946 Unknown [id number] 2.16.840.1.332211.3.579 .2.593 1946 Unknown [id number] 2.16.840.1.378844.3.579 .2.593 1946 Unknown [id number] 2.16.840.1.286525.3.579 .2.593 1946 Unknown [id number] 2.16.840.1.778754.3.579 .2.593 1946 Unknown [id number] 2.16.840.1.413962.3.579 .2.593 1946 Unknown [id number] 2.16.840.1.669503.3.579 .2.593 1946 Unknown [id number] 2.16.840.1.230259.3.579 .2.727 1946 Unknown [id number] 2.16.840.1.081799.3.579 .2.727 1946 Unknown [id number] 2.16.840.1.686764.3.579 .2.727 1946 Unknown [id number] 2.16.840.1.302869.3.579 .2.727 1946 Unknown [id number] 2.16.840.1.561774.3.579 .2.1259 1946 Unknown [id number] 2.16.840.1.541169.3.579 .2.1259 1946 Unknown [id number] 2.16.840.1.222928.3.579 .2.1259 1946 Unknown [id number] 2.16.840.1.399571.3.579 .2.1259 1946 Unknown [id number] 2.16.840.1.247254.3.579 .2.1259 Unknown [id number] 2.16.840.1.887779.3.579 .2.531 Social History Date Type Detail Facility Sex Assigned At [employer] Other Start: 02-03-2023 End: 04-15-2024 Tobacco smoking status Ex-smoker (finding) [facility] Tobacco smoking status Never [facility] Start: 12-11-2022 End: 04-08-2024 Sex Assigned [address] Female [facility] Start: 1945 Sex Assigned At Female [facility] End: 07-14-1986 History of tobacco [...] Facility 07-12-2024 Functional Status N/A [facility] 10-14-2023 Functional Status N/A [facility] 08-13-2023 Functional Status N/A [facility] Clinical Notes 02-21-2022 to 10-11-2024 Note Date & Type Note Facility 10-11-2024 Evaluation note Diagnosis Type 2 diabetes mellitus with stage 3a chronic kidney disease, without long-term current use of insulin (HCC) (CMS/HCC) documented in this encounter [facility] [id number] History of Present illness Narrative* Felicia Farmer, - 08/04/2024 1:00 PM EST Images from the original note were not included. Assessment/Plan Diagnoses and all orders for this visit: Type 2 diabetes mellitus without complication, without long-term current use of insulin (CMS/HCC) - Diabetes Mellitus without sign of diabetic retinopathy on dilated retinal examination today OU: Discussed the pathophysiology of diabetes and its effect on the eye. Stressed the importance of strong glucose control. Advised of importance of at least yearly dilated examinations, but to contact us i mmediately for any problems or concerns. Glaucoma suspect of both eyes - Glaucoma suspect OU - Continue observation, following the findings of IOP, C/D ratio, HVF and OCTONH. Encouraged patient compliance. Dry eyes - Dry Eyes OU -- Environmental changes to minimize dryness and exposure and the use of artificial tears were recommended. Blepharitis of upper and lower eyelids of both eyes, unspecified type - Blepharitis, posterior type OU - The patient exhibits inspissated meibomian glands. Warm compresses, lid massage and lid scrubs were recommended. documented in this encounterKindred [id number] Evaluation note* Diagnosis Glaucoma suspect of both eyes- Primary Unspecified preglaucoma Type 2 diabetes mellitus with stage 3a chronic kidney disease, without long-term current use of insulin (HCC) (CMS/HCC) Dry eyes Unspecified tear film insufficiency Blepharitis of upper and lower eyelids of both eyes, unspecified type documented in this encounter [facility] [id number] Hospital Discharge instructions Patient Education 07/12/2024 11:44:44 [...] include: ?8 oz (237 mL) of milk, oznpiue-xqygbxhsayou-vofqi milk, and calcium- fortifiedfruit juice. Calcium-fortified means [...] ?Spinach (cooked), rhubarb, beets, sweet potatoes, and Gambian chard. ?Peanuts. ?Potato chips, malawian fries, and baked potatoes with skin on. ?Nuts and nut products. ?Chocolate. If you regularly take a diuretic medicine, make sure to eat at least 1 or 2 servings of fruits or vegetables that are high in potassium each day. These include: ?Avocado. ?Banana. ?Galliano, prune, carrot, or tomato juice. ?Baked potato. [...] magnesium, fish oil, or vitamin B6. Take iokc-cpz-syplrxu and prescription medicines only as told by [...] Casseroles. Pizza. Lasagna. Frozen meals. Potato chips. Ghanaian fries. The items listed above may not [...] provider. Document Revised: 10/10/2022 Document Reviewed: 10/10/2022 [employer] Patient Education 2023 [employer] Follow Up Care 02/03/2023 12:01:32 With:CORA AGUIAR, Williams Venegas, URL Address: [address] [place], [place] [address]- When: Unknown [facility] 12-30-2024 NotePatient Education Nephrology Dietary Guidelines to Help [...] ? 8 oz (237 mL) of milk, jzcvupr-kmezjdrwvson-xkhns milk, and calcium- fortifiedfruit juice. Calcium-fortified means [...] Spinach (cooked), rhubarb, beets, sweet potatoes, and Gambian chard. ? Peanuts. ? Potato chips, malawian fries, and baked potatoes with skin on. ? Nuts and nut products. ? Chocolate. ??? If you regularly take a diuretic medicine, make sure to eat at least 1 or 2 servings of fruits or vegetables that are high in potassium each day. These include: ? Avocado. ? Banana. ? Galliano, prune, carrot, or tomato juice. ? Baked [...] fish oil, or vitamin B6. ??? Take cltx-dnd-ckhiuoz and prescription medicines only as told by your health (more content not included)...[facility]12-19-2024 Telephone encounter Note* Telephone Encounter - Jayme [...] to recheck her INR after the holiday. [facility] [id number] Miscellaneous Notes* Telephone Encounter - Jayme Perez [...] in about 2 weeks. documented in this encounterKindred [id number] Telephone encounter Note* Telephone Encounter - Angeles Bonilla - 06/17/2024 9:11 AM EST Left voicemail to continue current dose and recheck in about 2 weeks Kindred [id number] Telephone encounter Note* Telephone Encounter - Jayme Perez MD - 06/17/2024 7:12 AM EST She is right on the border of the elevated. I would just continue the same dose and get rechecked it again in about 2 weeks. Kindred [id number] History of Present illness Narrative* Jayme Perez [...] prior to visit. 1. 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 ([facility]) Chronic problem, stable, comanaged with Cardiology. Asymptomatic. 2. 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 We have previously fill her warfarin. 3. Type 2 diabetes mellitus with stage 3a chronic kidney disease, without long- term current use of insulin (HCC) ([facility]) Chronic problem, stable, to goal. In prescribing [...] chronic kidney disease (HCC) ([facility]) Chronic problem, historically stable. Continue to monitor [...] I discussed with the patient or their claims representative, their fatigue issues. We discussed how [...] 60 tablet; Refill: 0 documented in this encounterKindred [id number] Hospital Discharge instructions Patient Education 10/14/2023 09:33:38 [...] include: ?8 oz (237 mL) of milk, xlneyzt-lqqsxqhkwtyt-qunlj milk, and calcium- fortifiedfruit juice. Calcium-fortified means [...] ?Spinach (cooked), rhubarb, beets, sweet potatoes, and Gambian chard. ?Peanuts. ?Potato chips, malawian fries, and baked potatoes with skin on. ?Nuts and nut products. ?Chocolate. If you regularly take a diuretic medicine, make sure to eat at least 1 or 2 servings of fruits or vegetables that are high in potassium each day. These include: ?Avocado. ?Banana. ?Galliano, prune, carrot, or tomato juice. ?Baked potato. [...] magnesium, fish oil, or vitamin B6. Take iinl-vqr-fkfcldj and prescription medicines only as told by [...] Casseroles. Pizza. Lasagna. Frozen meals. Potato chips. Ghanaian fries. The items listed above may not [...] provider. Document Revised: 10/10/2022 Document Reviewed: 10/10/2022 [employer] Patient Education 2022 [employer]. Follow Up Care 08/13/2023 10:19:44 With:CORA AGUIAR, Williams Venegas, URL Address: [address] [place] [address] [place], [place] [id number]- When: Unknown [facility] [id number] Hospital Discharge instructions Patient Education 08/13/2023 11:34:50 [...] including vitamins, herbs, eye drops, creams, and hghz-oav-xiifmlf medicines. Any problems you or family members [...] provider tells you to take them. ?Taking lthi-bef-adwazbz medicines, vitamins, herbs, and supplements. Eating and [...] provider. Document Revised: 11/06/2022 Document Reviewed: 03/04/2022 [employer] Patient Education 2022 [employer]. Follow Up Care 08/12/2023 14:37:00 With:ANGELITO AGUIAR, Renato Arzola, URL Address: [facility] [address], [place] [phone] When: Unknown Comments:sched ureteroscopyf/u w/ [facility] scheduled 10/14/23 [facility] [place] 01-25-2024 History of Present illness Narrative* Jayme [...] 32.7 (H) 9.0 - 11.6 sec Final [facility] INR 07/22/2023 3.30 Final Comment: DESIRED INR: [...] 07/22/2023 0.98 0.55 - 1.02 mg/dL Final [facility] EGFR-AF [place] 07/22/2023 >60 >=60 Final [facility] EGFR-NON AF [place] 07/22/2023 55 (L) >=60 Final BUN CREATININE [...] without long-term current use of insulin (HCC) (CMS/[facility]) - metFORMIN (Glucophage) 1000 MG tablet; Take [...] cardiovascular disease. 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 documented in this encounterKindred [id number] Evaluation note* Encounter Date Diagnosis Assessment Notes [...] care as directed rx of steroid and [place], cool mist humidification. May use Tylenol as directed. Immediate eval for signs of respiratory distress, difficulty breathing poor PO intake, signs of dehydration, fever, or other concerning symptoms. Otherwise, follow up with PCP in 2-3 days. Patient verbalizes understanding and is agreeable to treatment plan. Patient sent home in stable condition. [employer] Other 08-11-2022 NotePROCEDURE: XR FOOT LT MIN 3 VIEWS COMPARISON: None. HISTORY: Pain in left foot FINDINGS: BONES:No acute fracture or dislocation. Mild enthesopathic spurring of the calcaneus. SOFT TISSUES:Negative. No visible soft tissue swelling. EFFUSION:None visible. OTHER: Negative. IMPRESSION: Mild enthesopathic spurring of the calcaneus Electronically authenticated by: BLANCA ZAVALA Date: 2022-02-21 07:28[facility] Future Appointments Appointment Date:07/12/2024 10:45:00 AM Scheduled Provider:Williams SHEPHERD MD Location:[facility] Appointment Type:URO Office Visit [facility] Evaluation + Plan note Future Appointments Appointment Date:07/12/2024 10:45:00 AM Scheduled Provider:Williams SHEPHERD MD Location:[facility] Appointment Type:URO Office Visit Diagnostic Tests Pending * Calculi Analysis [facility] Future Appointments Appointment Date:10/14/2023 09:15:00 AM Scheduled Provider:Williams SHEPHERD MD Location:[facility] Appointment Type:URO Office Visit Appointment Date:07/12/2024 10:45:00 AM Scheduled Provider:Williams SHEPHERD MD Location:[facility] Appointment Type:URO Office Visit [facility] [place] Evaluation [employer] Other Evaluation noteNo assessment information available [facility] Work Phone: Evaluation note* Diagnosis Chronic diastolic heart failure (CMS/HCC)- Primary Chronic diastolic heart failure 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 (CMS/HCC) Atrial fibrillation Type 2 diabetes mellitus with stage 3a chronic kidney disease, without long-term current use of insulin (HCC) (CMS/HCC) Stage 3a chronic kidney disease (HCC) (CMS/HCC) Microalbuminuria Proteinuria Former smoker Personal history of tobacco use, presenting hazards to health 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, 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 HealthcareHistory general Narrative - ReportedNort [employer] Other History general Narrative - Reported* Type Description Date Medical History Arthritis Medical History diabetes mallitus Surgical History cataract surgery [employer] Other Hospital course Narrative No data available for this section [facility] Hospital Discharge instructions No data available for this section [facility] Namely Progress note No data available for this section [facility] Summary Purpose Family History Relationship [...] and content) DATE CREATED AUTHOR 12/20/2022 [facility] DATE CREATED AUTHOR AUTHOR'S ORGANIZ ATION 04/10/2024 [facility] DATE CREATED AUTHOR AUTHOR'S ORGANIZ ATION 07/13/2024 [facility] DATE CREATED AUTHOR AUTHOR'S ORGANIZ ATION 08/06/2024 [facility] d[facility] Specialists EPIC Patient Care team informatio n (unrecognized section and content) Team Status: Active Member Role Status Dates Jayme Perez MD Primary Care Provider Active Team Status: Inactive Member Role Status Dates Jayme Perez MD Primary Care Provider Active Williams Shepherd MD Attending Provider Active Construction Producer Relationship Specialty Start Date End Date Jayme Perez MD [address] [place] [address] PCP - General Family Medicine 11/25/22 Jayme Perez MD [address] [place] [address] PCP - ACO Reach 12/05/22 Construction Producer Relationship Specialty Start Date End Date Jayme Perez MD [address] [place] [address] PCP - General Family Medicine 11/25/22 Jayme Perez MD [address] [place] [address] (Fax) PCP - ACO Reach 12/05/22 Team Status: Inactive Member Role Status Dates Jayme Perez MD Primary Care Provider Active Start: March 31, 2024 End: March 31, 2024 Radames Monteiro MD Attending Provider Active St art: March 31, 2024 End: March 31, 2024 Construction Producer Relationship Specialty Start Date End Date Jayme Perez MD [address] [place] [address] (Fax) PCP - General Family Medicine 11/25/22 Jayme Perez MD [address] [place] [address] (Fax) PCP - ACO Reach 12/05/22 Felicia Farmer DO [address] [place] [id number] Referring Physician Ophthalmology 08/21/23 Renato Santacruz MD [address] [place] [address] Referring Physician Urology 08/21/23 Radames Monteiro MD [address] [facility] Professional building 1 [place] [address] Referring Physician Rheumatology 08/21/23 Construction Producer Relationship Specialty Start Date End Date Jayme Perez MD [address] [place] [address] (Fax) PCP - General Family Medicine 11/25/22 Jayme Perez MD [address] [place] [address] PCP - ACO Reach 12/05/22 Felicia Farmer DO [address] [place] [address] Referring Physician Ophthalmology 08/21/23 Rentao Santacruz MD [address] [place] [phone] Referring Physician Urology 08/21/23 Radames Monteiro MD [address] Professional building [address] [place] [address] Referring Physician Rheumatology 08/21/23 Construction Producer Relationship Specialty Start Date End Date Jayme Perez MD [address] [place] [phone] (Fax) PCP - General Family Medicine 11/25/22 Jayme Perez MD [address] [place] [address] (Fax) PCP - ACO Reach 12/05/22 Felicia Farmer DO [address] [place] [address] Referring Physician Ophthalmology 08/21/23 Renato Santacruz MD [address] [phone] Referring Physician Urology 08/21/23 Radames Monteiro MD [address] Professional building [address] [place] [address] Referring Physician Rheumatology 08/21/23 Construction Producer Relationship Specialty Start Date End Date Jayme Perez MD [address] [place] [phone] (Fax) PCP - General Family Medicine 11/25/22 Jayme Perez MD [address] [place] [address] (Fax) PCP - ACO Reach 12/05/22 Felicia Farmer, [address] [place] [phone] Referring Physician Ophthalmology 08/21/23 Renato Santacruz MD [address] [place] [address] Referring Physician Urology 08/21/23 Radames Monteiro MD [address] [facility] Professional building [address] [place] [phone] Referring Physician Rheumatology 08/21/23 Construction Producer Relationship Specialty Start Date End Date Jayme Perez MD [address] [place] [address] (Fax) PCP - General Family Medicine 11/25/22 Jayme Perez MD [address] [place] [address] (Fax) PCP - ACO Reach 12/05/22 Felicia Farmer DO [address] [place] [address] Referring Physician Ophthalmology 08/21/23 Renato Santacruz MD [address] [place] [address] Referring Physician Urology 08/21/23 Radames Monteiro MD [address] [place] [phone] Referring Physician Rheumatology 08/21/23 Construction Producer Relationship Specialty Start Date End Date Jayme Perez MD [address] [place] [phone] PCP - General Family Medicine 11/25/22 Jayme Perez MD [address] [phone] PCP - ACO Reach 12/05/22 Felicia Farmer DO [address] [facility] [address] [place] [address] Referring Physician Ophthalmology 08/21/23 Renato Santacruz MD [address] [place] [address] Referring Physician Urology 08/21/23 Radames Monteiro MD [address] Professional [address] [place] [address] Referring Physician Rheumatology 08/21/23 Construction Producer Relationship Specialty Start Date End Date Jayme Perez MD [address] [facility] [address] [place] [address] (Fax) PCP - General Family Medicine 11/25/22 Jayme Perez MD [address] [place] [address] (Fax) PCP - ACO Reach 12/05/22 Felicia Farmer DO [address] [place] [address] Referring Physician Ophthalmology 08/21/23 Renato Santacruz MD [address] [place] [address] Referring Physician Urology 08/21/23 Radames Monteiro MD [address] [facility] Professional building [address] [place] [phone] Referring Physician Rheumatology 08/21/23 Construction Producer Relationship Specialty Start Date End Date Jayme Perez MD [address] [place] [address] (Fax) PCP - General Family Medicine 11/25/22 Jayme Perez MD [address] [place] [address] (Fax) PCP - ACO Reach 12/05/22 Felicia Farmer DO [address] [place] [address] Referring Physician Ophthalmology 08/21/23 Renato Santacruz MD [address] [place] [address] Referring Physician Urology 08/21/23 Radames Monteiro MD [address] Professional [address] [place] [phone] Referring Physician Rheumatology 08/21/23 Construction Producer Relationship Specialty Start Date End Date Jayme Perez MD [address] [place] [address] (Fax) PCP - General Family Medicine 11/25/22 Jayme Perez MD [address] [place] [address] (Fax) PCP - ACO Reach 12/05/22 Felicia Farmer DO [address] [place], [place] [address] [place] [address] Referring Physician Ophthalmology 08/21/23 Renato Santacruz MD [address] [place] [phone] Referring Physician Urology 08/21/23 Radames Monteiro MD [address] Professional building [address] [place] [address] Referring Physician Rheumatology 08/21/23 Construction Producer Relationship Specialty Start Date End Date Jayme Perez MD [address] [place] [address] (Fax) PCP - General Family Medicine 11/25/22 Jayme Perez MD [address] [place] [address] (Fax) PCP - ACO Reach 12/05/22 Felicia Farmer DO [address] [place] [address] Referring Physician Ophthalmology 08/21/23 Renato Santacruz MD [address] [phone] Referring Physician Urology 08/21/23 Rdaames Monteiro MD [address] [facility] [address] [place] [address] Referring Physician Rheumatology 08/21/23 Construction Producer Relationship Specialty Start Date End Date Jayme Perez MD [address] [place] [address] PCP - General Family Medicine 11/25/22 Jayme Perez MD [address] [address] PCP - ACO Reach 12/05/22 Felicia Farmer DO [address] [place] [address] Referring Physician Ophthalmology 08/21/23 Renato Santacruz MD [address] [place] [address] Referring Physician Urology 08/21/23 Radames Monteiro MD [address] [employer] [address] Professional [address] [place] [address] Referring Physician Rheumatology 08/21/23 Goals [...] BE BASED ON THE PRIMARY CLINICAL RECORDS. [facility]. provides no warranty or guarantee of the accuracy or completeness of information in this document.
[2024-10-18 10:29] LABS: Basophils Absolute Auto 0.1 10^3/uL (0.0-0.1); Eosinophils Absolute Auto 0.2 10^3/uL (0.0-0.7); Eosinophils Percent Auto 3.7 % (0.9-7.0); Hematocrit 38.7 % (36.0-48.0); Hemoglobin 12.4 g/dL (12.0-16.0); Immature Granulocytes Abs Auto 0.02 10^3/uL (0.00-0.03); Immature Granulocytes Pct Auto 0.3 % (0.0-0.5); Lymphocytes Absolute Auto 1.8 10^3/uL (1.2-3.8); Lymphocytes Percent Auto 28.4 % (20.5-60.0); Mean Corpuscular Hemoglobin 30.9 pg (26.7-34.0); Mean Corpuscular Volume 96.5 fL (81.0-99.0); Mean Platelet Volume 8.9 fL (9.5-13.5); Monocytes Absolute Auto 0.4 10^3/uL (0.3-0.8); Monocytes Percent Auto 5.9 % (1.7-12.0); Neutrophils Absolute Auto 3.8 10^3/uL (1.4-6.5); Neutrophils Percent Auto 60.7 % (43.0-75.0); Platelet Count 292 10^3/uL (150-450); Red Blood Count 4.01 10^6/uL (4.20-5.40); Red Cell Distribution Width 14.4 % (11.0-15.0); White Blood Count 6.3 10^3/uL (4.0-11.0)
[2024-10-18 10:51] LABS: Magnesium 1.7 mg/dL (1.8-2.4); Phosphorus 3.2 mg/dL (2.6-4.7)
[2024-10-18 10:53] LABS: Alanine Aminotransferase 17 U/L (14-59); Albumin Globulin Ratio 1.3; Albumin Level 3.9 g/dL (3.4-5.0); Alkaline Phosphatase 47 U/L (46-116); Anion Gap 9.2; Aspartate Amino Transferase 16 U/L (15-37); BUN Creatinine Ratio 16.7; Bilirubin Total 0.5 mg/dL (0.2-1.0); Calcium 9.1 mg/dL (8.5-10.1); Chloride 103 mmol/L (98-107); Estimated GFR (African America >60 (>=60 mL/min/1.73m^2); Estimated GFR (Non-African Ame >60 (>=60 mL/min/1.73m^2); Globulin 2.9 g/dL; Glucose 114 mg/dL (74-106); Potassium 4.2 mmol/L (3.5-5.1); Sodium 139 mmol/L (136-145); Total Protein 6.8 g/dL (6.4-8.2)
[2024-10-18 10:59] LABS: Erythrocyte Sedimentation Rate 10 mm/hr (<=30)
== END 2024-10-18 09:58 | disposition home or self-care (01) ==
LOC: LAB 09:59
PROVIDERS: PCP Family Medicine; Visit Provider Internal Medicine Rheumatology
DX: E11.22 Type 2 diabetes mellitus with diabetic chronic kidney disease (principal); N18.31 Chronic kidney disease, stage 3a; Z13.220 Encounter for screening for lipoid disorders; L40.59 Other psoriatic arthropathy; Z79.899 Other long term (current) drug therapy
CPT/HCPCS: 36415; 80053; 80061; 83036; 83735; 84100; 85025; 85652

== ENCOUNTER 2024-10-18 10:06 | Outpatient (OUT) | payer MEDICARE, SELFPAY ==
[2024-10-18 10:40] LABS: Estimated Average Glucose 137 mg/dL; Glycohemoglobin A1C 6.4 % (4.5-6.2)
[2024-10-18 10:55] LABS: Chol HDL Ratio 2.1; Cholesterol 201 mg/dL (<=200); HDL Cholesterol 95 mg/dL (40-60); Triglycerides 202 mg/dL (<=150); VLDL CHOLESTEROL 40.4 mg/dL
== END 2024-10-18 10:07 | disposition home or self-care (01) ==
LOC: LAB 10:08
PROVIDERS: PCP Family Medicine; Visit Provider Family Medicine
DX: E11.22 Type 2 diabetes mellitus with diabetic chronic kidney disease (principal); N18.31 Chronic kidney disease, stage 3a; Z13.220 Encounter for screening for lipoid disorders
CPT/HCPCS: 36415; 80061; 83036

== ENCOUNTER 2024-10-25 10:50 | Outpatient (RCR) | payer MEDICARE, SELFPAY ==
[2024-10-25 11:29] LABS: INR 3.02; Prothrombin Time 28.7 sec (9.0-11.6)
== END 2024-11-15 09:57 | disposition home or self-care (01) ==
LOC: LAB 10:50
PROVIDERS: PCP Family Medicine; Visit Provider Family Medicine
DX: Z51.81 Encounter for therapeutic drug level monitoring (principal); Z79.01 Long term (current) use of anticoagulants; I48.0 Paroxysmal atrial fibrillation
CPT/HCPCS: 36415; 85610

== ENCOUNTER 2024-11-02 09:39 | Outpatient (OUT) | payer MEDICARE, SELFPAY ==
[2024-11-02 10:17] LABS: Creatinine Urine Random 149.56 mg/dL (20.00-300.00); Microalbum Creatinine Ratio Ur 129.7 mg/g (0.0-29.9); Microalbumin Urine Random 19.4 mg/dL (<=30.0)
== END 2024-11-02 09:40 | disposition home or self-care (01) ==
LOC: LAB 09:40
PROVIDERS: PCP Family Medicine; Visit Provider Family Medicine
DX: E11.22 Type 2 diabetes mellitus with diabetic chronic kidney disease (principal); N18.31 Chronic kidney disease, stage 3a; R80.9 Proteinuria, unspecified
CPT/HCPCS: 82043; 82570

== ENCOUNTER 2024-11-24 09:45 | Outpatient (OUT) | payer MEDICARE, SELFPAY ==
[2024-11-24 11:10] LABS: INR 3.42; Prothrombin Time 32.1 sec (9.0-11.6)
== END 2024-11-24 09:46 | disposition home or self-care (01) ==
LOC: LAB 09:48
PROVIDERS: PCP Family Medicine; Visit Provider Family Medicine
DX: I48.0 Paroxysmal atrial fibrillation (principal); Z79.01 Long term (current) use of anticoagulants; Z51.81 Encounter for therapeutic drug level monitoring
CPT/HCPCS: 36415; 85610

== ENCOUNTER 2024-11-24 09:56 | Outpatient (OUT) | payer MEDICARE, SELFPAY ==
[2024-11-24 10:27] LABS: Basophils Absolute Auto 0.1 10^3/uL (0.0-0.1); Basophils Percent Auto 0.9 % (0.2-2.0); Eosinophils Absolute Auto 0.3 10^3/uL (0.0-0.7); Eosinophils Percent Auto 5.6 % (0.9-7.0); Hematocrit 39.6 % (36.0-48.0); Hemoglobin 12.7 g/dL (12.0-16.0); Immature Granulocytes Abs Auto 0.02 10^3/uL (0.00-0.03); Immature Granulocytes Pct Auto 0.4 % (0.0-0.5); Lymphocytes Absolute Auto 1.8 10^3/uL (1.2-3.8); Mean Corpuscular HGB Conc 32.1 g/dL (29.9-35.2); Mean Corpuscular Volume 96.6 fL (81.0-99.0); Mean Platelet Volume 8.8 fL (9.5-13.5); Monocytes Absolute Auto 0.6 10^3/uL (0.3-0.8); Monocytes Percent Auto 9.9 % (1.7-12.0); Neutrophils Absolute Auto 2.9 10^3/uL (1.4-6.5); Neutrophils Percent Auto 51.2 % (43.0-75.0); Platelet Count 284 10^3/uL (150-450); Red Cell Distribution Width 14.6 % (11.0-15.0); White Blood Count 5.7 10^3/uL (4.0-11.0)
[2024-11-24 11:13] LABS: Erythrocyte Sedimentation Rate 18 mm/hr (<=30)
[2024-11-24 11:41] LABS: Alanine Aminotransferase 19 U/L (14-59); Albumin Globulin Ratio 1.2; Albumin Level 3.8 g/dL (3.4-5.0); Alkaline Phosphatase 54 U/L (46-116); Anion Gap 7.2; Aspartate Amino Transferase 12 U/L (15-37); BUN Creatinine Ratio 20.7; Bilirubin Total 0.4 mg/dL (0.2-1.0); Calcium 9.6 mg/dL (8.5-10.1); Carbon Dioxide 33.5 mmol/L (21.0-32.0); Chloride 104 mmol/L (98-107); Estimated GFR (African America >60 (>=60 mL/min/1.73m^2); Estimated GFR (Non-African Ame 59 (>=60 mL/min/1.73m^2); Globulin 3.1 g/dL; Glucose 136 mg/dL (74-106); Phosphorus 2.2 mg/dL (2.6-4.7); Potassium 4.7 mmol/L (3.5-5.1); Sodium 140 mmol/L (136-145); Total Protein 6.9 g/dL (6.4-8.2)
== END 2024-11-24 09:57 | disposition home or self-care (01) ==
LOC: LAB 09:58
PROVIDERS: PCP Family Medicine; Visit Provider Internal Medicine Rheumatology
DX: L40.59 Other psoriatic arthropathy (principal); Z79.899 Other long term (current) drug therapy; I48.0 Paroxysmal atrial fibrillation; Z79.01 Long term (current) use of anticoagulants; Z51.81 Encounter for therapeutic drug level monitoring
CPT/HCPCS: 36415; 80053; 83735; 84100; 85025; 85610; 85652

== ENCOUNTER 2024-12-08 12:07 | Outpatient (OUT) | payer MEDICARE, SELFPAY ==
[2024-12-08 12:41] LABS: INR 2.34; Prothrombin Time 22.8 sec (9.0-11.6)
== END 2024-12-08 12:08 | disposition home or self-care (01) ==
LOC: LAB 12:08
PROVIDERS: PCP Family Medicine; Visit Provider Family Medicine
DX: I48.0 Paroxysmal atrial fibrillation (principal); Z79.01 Long term (current) use of anticoagulants; Z51.81 Encounter for therapeutic drug level monitoring
CPT/HCPCS: 36415; 85610

== ENCOUNTER 2025-01-06 11:05 | Outpatient (OUT) | payer MEDICARE, SELFPAY ==
--- OUTSIDE RECORDS SUMMARY | 2024-12-23 12:30 | XMS_ITS | Encounter Summary ---
Author Organization [facility] Address [address] [place] [address] Care Team Providers Care S[employer] [place] Consultant Name Role Phone Jayme Parham MD Primary Care Provider + [phone] Jayme Parham MD Unavailable [phone] Mick Farmer DO Unavailable [phone] Renato Santacruz MD Unavailable [phone] Chuy Wood MD Unavailable [phone] Reason for Visit * Rehabilitation - Outpatient (Routine) - Authorized Specialty Diagnoses / Procedures Referred By Contac t Referred To Contact Physical Therapy Diagnoses Vertigo Procedures PA OFFICE/OUTPATIENT [facility] HIGH MDM 60 MINUTES Jayme Parham MD [address] [place] [address] Phone: tel: fax: Joselyn Narvaez PT Referral ID Status Reason Start Date Expiration Date Visits Requested Visits Authorized [id number] Authorized Specialty Services Required 12/22/2024 07/13/2025 10 30 Encounter Details Date Type Department Care Team (Late st Contact Info) Description 12/23/2024 12:30 PM EDT Evaluation [facility] [address] [place] [address] Joselyn Narvaez PT Vertigo (Primary Dx) Social History Tobacco Use Types Packs/Day Years Used Date Smoking Tobacco: Former Cigarettes Q uit: 1986 Smokeless Tobacco: Never Alcohol Use Standard Drinks/Week Comments Not Currently 0 (1 standard drink = 0.6 oz pur e alcohol) B1300 Health Literacy Answer Date Recor ded How often do you need to hav e someone help you when you read instructions, pamphlets, or other written material from your doctor or pharmacy? Never 04/08/2024 Humiliation, Afraid, Rape, and Kick questionnair e Answer Date Recorded Within the last year, have y ou been afraid of your partner or ex-partner? No 12/11/2022 Within the last year, have y ou been humiliated or emotionally abused in other ways by your partner or ex-partner? No Within the last year, have y ou been kicked, hit, slapped, or otherwise physically hurt by your partner or ex-partner? No 12/11/2022 Within the last year, have y ou been raped or forced to have any kind of sexual activity by your partner or ex-partner? No 12/11/2022 Social Connection and Isolat ion Panel [NHANES] Answer Date Recorded In a typical week, how many times do you talk on the phone with family, friends, or neighbors? More than three times a week 04/08/2024 How often do you get togethe r with friends or relatives? More than three times a week 04/08/2024 How often do you attend chur ch or christianity services? Never 04/08/2024 Do you belong to any clubs o r organizations such as congregational groups, unions, fraternal or athletic groups, or school groups? No 04/08/2024 How often do you attend meet ings of the clubs or organizations you belong to? Never 04/08/2024 Are you , , di vorced, , never , or living with a partner? 04/08/2024 AUDIT-C Answer Date Recorded Q1: How often do you have a drink containing alcohol? Never 04/08/2024 Q2: How many drinks containi ng alcohol do you have on a typical day when you are drinking? Patient does not drink Q3: How often do you have si x or more drinks on one occasion? Never 04/08/2024 Overall Financial Resource Strain (CARDIA) Answe r Date Recorded How hard is it for you to pa y for the very basics like food, housing, medical care, and heating? Not hard at all 04/08/2024 PHQ-2 Answer Date Recorded Patient Health Questionnaire-2 Score 0 11/04/2024 [facility] - Occupational Stress Questionnaire Answer Date Recorded Do you feel stress - tense, restless, nervous, or anxious, or unable to sleep at night because your mind is troubled all the time - these days? Not at all 04/08/2024 Exercise Vital Sign Answer Date Recorde d On average, how many days pe r week do you engage in moderate to strenuous exercise (like a brisk walk)? 4 days 04/08/2024 On average, how many minutes do you engage in exercise at this level? 60 min 04/08/2024 Hunger Vital Sign Answer Date Recorded Within the past 12 months, y ou worried that your food would run out before you got the money to buy more. Never true 04/08/20 24 Within the past 12 months, t he food you bought just didn't last and you didn't have money to get more. Never true 04/08/2024 PRAPARE - Transportation Answer Date Re corded In the past 12 months, has l ack of transportation kept you from medical appointments or from getting medications? No 03/15 In the past 12 months, has l ack of transportation kept you from meetings, work, or from getting things needed for daily living? No 04/08/2024 Housing Stability Vital Sign Answer Tsefan e Recorded In the last 12 months, was t here a time when you were not able to pay the mortgage or rent on time? No 12/11/2022 In the last 12 months, how many places have you lived? 1 12/11/2022 In the last 12 months, was t here a time when you did not have a steady place to sleep or slept in a fpc (including now)? No 12/11/2022 Housing Stability Vital Sign Answer Stefan e Recorded In the last 12 months, was t here a time when you were not able to pay the mortgage or rent on time? No 04/08/2024 In the past 12 months, how m any times have you moved where you were living? 0 04/08/2024 At any time in the past 12 m [facility], were you homeless or living in a fpc (including now)? No 04/08/2024 Education Answer Date Recorded What is the highest level of school you have completed or the highest degree you have received? Some college, no degree 01/24/2023 Comments No Sex and Gender Information Value Date Recorded Sex Assigned at Female 01/06/2023 1:32 PM EDT Legal Sex Female 6:45 PM EDT Gender Identity Female 01/06/2023 1:32 PM EDT Sexual Orientation Not on file documented as of this encounter Progress Notes * Joselyn Narvaez, PT - 12/23/2024 12:30 PM EDT Images from the original note were not included. Physical Therapy Evaluation Visit Patient Name: Wilda William Today's Date: 12/23/2024 Encounter Diagnoses Name Primary? Vertigo Yes Visit number: 1 Timed Code Treatment Minutes: 45 minutes Total Treatment Time: 55 minutes Time In: 1215 Time Out: 1314 History: Pt states a few weeks ago she woke up feeling dizzy. States sx's have been worsening sincethe beginning. States last Friday she was walking like she was drunk. Pt states her head feels more foggy vs having a room spinning dizziness. States having a hard time walking a straight line, drifts side to side. Precautions: [place]; Osteoporosis Subjective: no complaints at the moment Pain: 0/10 Objective: PT Evaluation (12/23/2024) CERVICAL CROM: limited left rotation compared to right; increase sx's after static hold of right rotation and returning to neutral Joint play: limited mobility right C2/3 region Palpation: moderate tenderness right UT Special Test: Modified VBI Testing: negative bilateral Hallpike: negative bilateral Roll Test: negative bilateral Treatment: Education: HEP education with demonstration, Educated on Eval Findings and POC Manual Therapy: (15 minutes) Passive ROM, Joint mobilization, Soft Tissue Mobilization, Myofascial Release, Muscle Energy Technique, Neural Mobilization, Myofascial Cupping, Dry Needling, IASTM, and Scar mobilization as needed. Therapeutic Exercise: (10 minutes) Strength, Endurance, Flexibility, ROM, HEP, Neural Mobilization,Power, and Core Stability as needed. Pt performed and instructed in home program this date; writteninstructions and pictures issued with good pt understanding. Therapeutic Activity: Exercises to improve dynamic activities, functional tasks, functional mobility to return to prior activity level as needed. Neuromuscular re-education: Balance Training, Muscle Facilitation, Dynamic Stability, Core Stabilization, and Blood Flow Restriction Training (BFRT) as needed. Modalities: Heat, Ice, Electrical Stimulation, Ultrasound, Cervical Mechanical Traction, Lumbar Mechanical Traction, Iontophoresis, and Fluidotherapy as needed. HP to cervical region in supine X 10 minute Assessment: Pt is 79 y/o female with complaints of dizziness and neck pain. VBI testing is negative. BPPV testing is negative. Pt does report increase sx's following static hold of right rotation. Moderate tenderness right UT and cervical paraspinals. Decrease mobility right C2/3. Will benefit fromfurther PT. Outcome Measure: Dizziness Handicap Inventory (DHI): 30/100 Rehab Diagnosis: dizziness, lightheadedness, neck pain, difficulty walking Short Term Goal: To be met in 2 weeks Goal 1: Pt to be instructed in home exercise program. Teachers Aide Goals: To be met in 10 weeks Goal 1: Pt to report independence and compliance with home program. Goal 2: Pt to score no greater than 10/100 on DHI indicating improved QOL. Goal 3: Pt to report decrease dizziness by 90% throughout the day. Goal 4: Pt to have little to no tenderness right UT and cervical regions indicating improved tissuequality. Goal 5: Pt to demonstrate equal cervical rotation to assist with driving and ADL's. Pt will benefit from skilled PT for 2x/week from 12/23/2024 to 03/17/2025 to address the above impairments. I hereby deem this POC medically necessary. Please sign below. Date: Cosigned by Jayme Parham MD at 12/23/2024 5:25 PM EDT documented in this encounter Plan of Treatment Upcoming Encounters Date Type Department Care Team (Late st Contact Info) Description 01/06/2025 11:30 AM EDT Office Visit [facility] [address] [place] [id number] Jayme Parham MD [address] [place] [address] (Fax) 01/07/2025 12:00 PM EDT Treatment [facility] [address] [place] [phone] IsaiasClara calvert, CORPORATE EXECUTIVE CHEF 01/10/2025 11:00 AM EDT Treatment [facility] [address] [place] [address] Avtar Narvaezmantha, PT 02/02/2025 1:30 PM EDT Office Visit [facility] [address] [place] [address] Mick Farmer DO [address] [place] [address] documented as of this encounter Visit Diagnoses Diagnosis Vertigo- Primary Dizziness and giddiness documented in this encounter Additional Health Concerns Assessment Noted Time PHQ-9 Depression Total Score: 7 11/05/19 25 1:00 PM EDT documented as of this encounter Care Teams [employer] Consultant Relationship Specialty Start Date End Date Jayme Parham MD [address] [place] [id number] (Fax) PCP - General Family Medicine 11/25/22 Jayme Parham MD [address] [place] [id number] (Fax) PCP - ACO Reach 12/05/22 Mick Farmer DO [address] [place] [address] Referring Physician Ophthalmology 08/21/23 Renato Santacruz MD [address] [place] [address] Referring Physician Urology 08/21/23 Chuy Wood MD [address] [facility] Professional [address] [phone] Referring Physician Rheumatology 08/21/23 documented as of this encounter
--- OUTSIDE RECORDS SUMMARY | 2024-12-29 12:30 | XMS_ITS | Encounter Summary ---
Author Organization [facility] Address [address] [place] [address] Care Team Providers Care Port Traffic Manager Name Role Phone Jayme Parham MD Primary Care Provider [phone] Jayme Parham MD Unavailable [phone] Mick Farmer DO Unavailable [phone] Renato Santacruz MD Unavailable [phone] Chuy Wood MD Unavailable [phone] Reason for Visit * Rehabilitation - Outpatient (Routine) - Authorized Specialty Diagnoses / Procedures Referred By Contac t Referred To Contact Physical Therapy Diagnoses Vertigo Procedures [facility] OFFICE/OUTPATIENT NEW HIGH MDM 60 MINUTES Jayme Parham MD [address] [facility] [address] [place] [address] Phone: tel: fax: Joselyn Narvaez PT Referral ID Status Reason Start Date Expiration Date Visits Requested Visits Authorized [id number] Authorized Specialty Services Required 12/22/2024 07/13/2025 10 30 Encounter Details Date Type Department Care Team (Late st Contact Info) Description 12/29/2024 12:30 PM EDT Treatment [facility] [address] [place] [phone] Clara Whitten PTA Vertigo (Primary Dx) Social History Tobacco Use [...] often do you attend chur ch or mormon services? Never 04/08/2024 Do you belong to any clubs o r organizations such as uatsdin groups, unions, fraternal or athletic groups, or [...] Recorded Patient Health Questionnaire-2 Score 0 11/04/2024 [facility] - Occupational Stress Questionnaire Answer Date Recorded [...] No 04/08/2024 Housing Stability Vital Sign Answer Stefan e [...] place to sleep or slept in a assisted (including now)? No 12/11/2022 Housing Stability Vital Sign Answer Stefan e Recorded In the last 12 months, was t here a time when you were not able to pay the mortgage or rent on time? No 04/08/2024 In the past 12 months, how m any times have you moved where you were living? 0 04/08/2024 At any time in the past 12 m [facility], were you homeless or living in a assisted (including now)? No 04/08/2024 Education Answer Date [...] as of this encounter Progress Notes * Clara Whitten, FULL STACK PYTHON DEVELOPER - 12/29/2024 12:30 PM EDT Images from the original note were not included. Physical Therapy Treatment Visit Patient Name: Wilda William Today's Date: 12/29/2024 Encounter Diagnoses Name Primary? Vertigo Yes Visit number: 2 Timed Code Treatment: 34 minutes Total Treatment Time: 44 minutes Time In: 12:35 PM Time Out: 1:18 PM History: Pt states a few weeks ago she woke up feeling dizzy. States sx's have been worsening sincethe beginning. States last Friday she was walking like she was drunk. Pt states her head feels more foggy vs having a room spinning dizziness. States having a hard time walking a straight line, drifts side to side. Precautions: [place]; Osteoporosis Subjective: increased wobbly off balance Pain: 0/10 Objective: PT Evaluation (12/23/2024) CERVICAL CROM: limited left rotation compared to right; increase sx's after static hold of right rotation and returning to neutral Joint play: limited mobility right C2/3 region Palpation: moderate tenderness right UT Special Test: Modified VBI Testing: negative bilateral Hallpike: negative bilateral Roll Test: negative bilateral Treatment: Manual Therapy: (20 minutes) Delivered manual ther pt supine cervical PROM, UT / LS stretching, STMto cervical area to improve mobility and decrease inflammation Therapeutic Exercise: (14 minutes supervised ) Guided pt through ther and flex ex per grid to improve cervical postural Strength, Endurance, Flexibility, ROM, HEP, Neural Mobilization, Power, and Core Stability as needed. Therapeutic Activity: Exercises to improve dynamic activities, functional tasks, functional mobility to return to prior activity level as needed. Neuromuscular re-education: Balance Training, Muscle Facilitation, Dynamic Stability, Core Stabilization, and Blood Flow Restriction Training (BFRT) as needed. Modalities: (10 minutes )Pre manual ther MHP to cervical region in supine Assessment: Visit #2 complaints of dizziness and neck pain with I.E on 12-23-24. Continues to reportincreased dizziness and feeling wobbly. Pt does report increase sx's following static hold of rightrotation. Moderate tenderness right UT and cervical paraspinals addressed with manual ther. Was able to add more postural stretching and mobility ex. Decrease mobility right C2/3. Will benefit from further PT. Outcome Measure: Dizziness Handicap Inventory (DHI): 30/100 Rehab Diagnosis: dizziness, lightheadedness, neck pain, difficulty walking Short Term Goal: To be met in 2 weeks Goal 1: Pt to be instructed in home exercise program. Gum Remover Goals: To be met in 10 weeks [...] necessary. Please sign below. Date: Cosigned by Joselyn Narvaez PT at 12/29/2024 3:59 PM EDT documented in this encounter Plan of Treatment Upcoming Encounters Date Type Department Care Team (Late st Contact Info) Description 01/06/2025 11:30 AM EDT Office Visit [facility] [address] [address] Jayme Parham MD [address] [facility] [address] [place] [address] (Fax) 01/07/2025 12:00 PM EDT Treatment [facility] [address] [place] [address] Clara Whitten, FULL STACK PYTHON DEVELOPER 01/10/2025 11:00 AM EDT Treatment [facility] [address] [facility] [address] [place] [address] Joselyn Narvaez, PT 02/02/2025 1:30 PM EDT Office Visit [facility] [address] [place] [id number] Mick Farmer DO [address] [place] [address] documented as of this encounter Visit Diagnoses Diagnosis Vertigo- Primary Dizziness and giddiness documented in this encounter Additional Health Concerns Assessment Noted Time PHQ-9 Depression Total Score: 7 11/05/19 25 1:00 PM EDT documented as of this encounter Care Teams Port Traffic Manager Relationship Specialty Start Date End Date Jayme Parham MD [address] [address] (Fax) PCP - General Family Medicine 11/25/22 Jayme Parham MD 112 [facility] 100 [place] [address] (Fax) PCP - ACO Reach 12/05/22 Mick Farmer DO [address] [place] [address] Referring Physician Ophthalmology 08/21/23 Renato Santacruz MD [address] [place] [address] Referring Physician Urology 08/21/23 Chuy Wood MD [address] [facility] Professional [address] [address] Referring Physician Rheumatology 08/21/23 documented as of this encounter
--- OUTSIDE RECORDS SUMMARY | 2024-12-31 12:30 | XMS_ITS | Encounter Summary ---
Author Organization [facility] Address [address] [place] [address] Care Team Providers Care Rn Hematology Name Role Phone Jayme Parham MD Primary Care Provider + [phone] Jayme Parham MD Unavailable [phone] Mick Farmer DO Unavailable [phone] Renato Santacruz MD Unavailable [phone] Chuy Wood MD Unavailable [phone] Reason for Visit * Rehabilitation - Outpatient (Routine) - Authorized Specialty Diagnoses / Procedures Referred By Contac t Referred To Contact Physical Therapy Diagnoses Vertigo Procedures [place] OFFICE/OUTPATIENT NEW HIGH MDM 60 MINUTES Jayme Parham MD [address] [facility] [address] [place] [address] Phone: tel: fax: Joselyn Narvaez PT Referral ID Status Reason Start Date Expiration Date Visits Requested Visits Authorized [id number] Authorized Specialty Services Required 12/22/2024 07/13/2025 10 30 Encounter Details Date Type Department Care Team (Late st Contact Info) Description 12/31/2024 12:30 PM EDT Treatment [facility] [address] [place] [address] Clara Whitten PTA Vertigo (Primary Dx) Social [...] often do you attend chur ch or pentecostalism services? Never 04/08/2024 Do you belong to any clubs o r organizations such as worship groups, unions, fraternal or athletic groups, or [...] Recorded Patient Health Questionnaire-2 Score 0 11/04/2024 [facility] - Occupational Stress Questionnaire Answer Date [...] place to sleep or slept in a group home (including now)? No 12/11/2022 Housing Stability Vital Sign Answer Stefan e Recorded In the last 12 months, was t here a time when you were not able to pay the mortgage or rent on time? No 04/08/2024 In the past 12 months, how m any times have you moved where you were living? 0 04/08/2024 At any time in the past 12 m [facility], were you homeless or living in a group home (including now)? No 04/08/2024 Education Answer Date [...] this encounter Progress Notes * Clara Whitten, CASINO CAGE CASHIER - 12/31/2024 12:30 PM EDT Images from the original note were not included. Physical Therapy Treatment Visit Patient Name: Wilda William Today's Date: 12/31/2024 Encounter Diagnoses Name Primary? Vertigo Yes Visit number: 3 Timed Code Treatment: 34 minutes Total Treatment Time: 34 minutes Time In: 12:30 PM Time Out: 1:08 PM History: Pt states a few weeks ago she woke up feeling dizzy. States sx's have been worsening sincethe beginning. States last Friday she was walking like she was drunk. Pt states her head feels more foggy vs having a room spinning dizziness. States having a hard time walking a straight line, drifts side to side. Precautions: [place]; Osteoporosis Subjective: increased wobbly off balance Pain: 0/10 Objective: PT Evaluation (12/23/2024) CERVICAL CROM: limited left rotation compared to right; increase sx's after static hold of right rotation and returning to neutral Joint play: limited mobility right C2/3 region Palpation: moderate tenderness right UT Special Test: Modified VBI Testing: negative bilateral Hallpike: negative bilateral Roll Test: negative bilateral Treatment: Manual Therapy: ( 20 minutes) Delivered manual ther pt supine cervical PROM, UT / LS stretching, STM to cervical area to improve mobility and decrease inflammation Therapeutic Exercise: (18 minutes supervised ) Guided pt through ther [...] Flow Restriction Training (BFRT) as needed. Modalities: (prn )Pre manual ther MHP to cervical region in supine Assessment: Visit #3 complaints of dizziness and neck pain with [...] to be instructed in home exercise program. Med Spa Manager Goals: To be met in 10 weeks [...] Date: Cosigned by Joselyn Narvaez PT at 01/03/2025 2:29 PM EDT documented in this encounter Plan of Treatment Upcoming Encounters Date Type Department Care Team (Late st Contact Info) Description 01/06/2025 11:30 AM EDT Office Visit [facility] [address] [address] Jayme Parham MD 112 [facility] [address] [place] [address] (Fax) 01/07/2025 12:00 PM EDT Treatment [facility] [address] [place] [address] Clara Whitten, CASINO CAGE CASHIER 01/10/2025 11:00 AM EDT Treatment [facility] [address] [facility] [address] [place] [address] Joselyn Narvaez, PT 02/02/2025 1:30 PM EDT Office Visit [facility] [address] [place] [id number] Mick Farmer DO [address] [place] [address] documented as of this encounter Visit Diagnoses Diagnosis Vertigo- Primary Dizziness and giddiness documented in this encounter Additional Health Concerns Assessment Noted Time PHQ-9 Depression Total Score: 7 11/05/19 25 1:00 PM EDT documented as of this encounter Care Teams Rn Hematology Relationship Specialty Start Date End Date Jayme Parham MD [address] [address] (Fax) PCP - General Family Medicine 11/25/22 Jayme Parham MD 112 [facility] 100 [place] [address] (Fax) PCP - ACO Reach 12/05/22 Mick Farmer DO [address] [place] [address] Referring Physician Ophthalmology 08/21/23 Renato Santacruz MD [address] [place] [phone] Referring Physician Urology 08/21/23 Chuy Wood MD [address] [facility] Professional [address] [address] Referring Physician Rheumatology 08/21/23 documented as of this encounter
--- OUTSIDE RECORDS SUMMARY | 2025-01-05 11:00 | XMS_ITS | Encounter Summary ---
Author Organization [facility] Address [address] [place] [address] Care Team Providers Care District Claims Manager Name Role Phone Jayme Parham MD Primary Care Provider + [phone] Jayme Parham MD Unavailable [phone] Mick Farmer DO Unavailable [phone] Renato Santacruz MD Unavailable [phone] Chuy Wood MD Unavailable [phone] Reason for Visit * Rehabilitation - Outpatient (Routine) - Authorized Specialty Diagnoses / Procedures Referred By Contac t Referred To Contact Physical Therapy Diagnoses Vertigo Procedures [place] OFFICE/OUTPATIENT [facility] HIGH MDM 60 MINUTES Jayme Parhma MD [address] [facility] [address] [place] [address] Phone: tel: fax: Joselyn Narvaez PT Referral ID Status Reason Start Date Expiration Date Visits Requested Visits Authorized [id number] Authorized Specialty Services Required 12/22/2024 07/13/2025 10 30 Encounter Details Date Type Department Care Team (Late st Contact Info) Description 01/05/2025 11:00 AM EDT Treatment [facility] [address] [place] [address] Clara Whitten PTA Vertigo (Primary Dx) Social [...] often do you attend chur ch or hindu services? Never 04/08/2024 Do you belong to any clubs o r organizations such as mu-ism groups, unions, fraternal or athletic groups, or [...] Recorded Patient Health Questionnaire-2 Score 0 11/04/2024 [facility] - Occupational Stress Questionnaire Answer Date [...] any time in the past 12 m [facility], were you homeless or living in a [...] this encounter Progress Notes * Clara Whitten, SERVICE ORDER CLERK - 01/05/2025 11:00 AM EDT Images from the original note were not included. Physical Therapy Treatment Visit Patient Name: Wilda William Today's Date: 01/05/2025 Encounter Diagnoses Name Primary? Vertigo Yes Visit number: 4 Timed Code Treatment: 24 minutes Total Treatment Time: 39 minutes Time In: 11: AM Time Out: 11:39 AM History: Pt states a few weeks ago she woke up feeling dizzy. States sx's have been worsening sincethe beginning. States last Friday she was walking like she was drunk. Pt states her head feels more foggy vs having a room spinning dizziness. States having a hard time walking a straight line, drifts side to side. Precautions: [place]; Osteoporosis Subjective: increased wobbly off balance especially with standing, lightheadedness, left sided neckpain Pain: sharp pain at times on L up to 7/10 Objective: PT Evaluation (12/23/2024) CERVICAL CROM: limited left rotation compared to right; increase sx's after static hold of right rotation and returning to neutral Joint play: limited mobility right C2/3 region Palpation: moderate tenderness right UT Special Test: Modified VBI Testing: negative bilateral Hallpike: negative bilateral Roll Test: negative bilateral Treatment: Manual Therapy: (23 minutes) Delivered manual ther pt supine cervical PROM, UT / LS stretching, STMto cervical area to improve mobility and decrease inflammation Therapeutic Exercise: ( HELD) Guided pt through ther and flex ex [...] Flow Restriction Training (BFRT) as needed. Modalities: (15 minutes ) Post session pt supine IFC/ P to cervical region to pain Assessment: Visit #4 complaints of dizziness and neck pain with I.E on 12-23-24. Continues to reportincreased dizziness and feeling wobbly with left sided neck pain. Pt does report increase sx's following static hold of right rotation. Moderate tenderness left UT and cervical paraspinals, decrease mobility C2/3, addressed with manual ther. Held ther ex this date. Not responding as expected to PT interventions, PT reassess. Ended session with IFC / MHP Outcome Measure: Dizziness Handicap Inventory (DHI): 30/100 Rehab Diagnosis: dizziness, lightheadedness, neck pain, difficulty walking Short Term Goal: To be met in 2 weeks Goal 1: Pt to be instructed in home exercise program. Prison Goals: To be met in 10 weeks [...] Date: Cosigned by Joselyn Narvaez PT at 01/05/2025 1:40 PM EDT documented in this encounter Plan of Treatment Upcoming Encounters Date Type Department Care Team (Late st Contact Info) Description 01/06/2025 11:30 AM EDT Office Visit [facility] [address] [place] [address] Jayme Parham MD [address] [place] [address] (Fax) 01/07/2025 12:00 PM EDT Treatment [facility] [address] [place] [address] Miroslavauche Clara, SERVICE ORDER CLERK 01/10/2025 11:00 AM EDT Treatment [facility] [address] [place] [address] Brice Joselyn, PT 02/02/2025 1:30 PM EDT Office Visit [facility] [address] [place] [address] Mick Farmer DO [address] [place] [address] documented as of this encounter Visit Diagnoses Diagnosis Vertigo- Primary Dizziness and giddiness documented in this encounter Additional Health Concerns Assessment Noted Time PHQ-9 Depression Total Score: 7 11/05/19 25 1:00 PM EDT documented as of this encounter Care Teams District Claims Manager Relationship Specialty Start Date End Date Jayme Parham MD [address] [place] [address] (Fax) PCP - General Family Medicine 11/25/22 Jayme Parham MD [address] [place] [address] (Fax) PCP - ACO Reach 12/05/22 Mick Farmer DO [address] [place] [address] Referring Physician Ophthalmology 08/21/23 Renato Santacruz MD [address] [place] [address] Referring Physician Urology 08/21/23 Chuy Wood MD [address] [facility] Professional building [address] [place] [phone] Referring Physician Rheumatology 08/21/23 documented as of this encounter
--- OUTSIDE RECORDS SUMMARY | 2025-01-06 11:10 | XMS_ITS | Encounter Summary ---
Author Organization [facility] Address [address] [place] [address] Care Team Providers Care Filter Cleaner Name Role Phone Jayme Parham MD Primary Care Provider [phone] Jayme Parham MD Unavailable [phone] Mick Farmer DO Unavailable [phone] Renato Santacruz MD Unavailable [phone] Chuy Wood MD Unavailable [phone] Encounter Details Date Type Department Care Team (Late st Contact Info) Description 09/18/2023 Orders Only [facility] [address] [place] [address] Jayme Parham MD 112 [facility] 100 [place] [address] Social History Tobacco Use Types Packs/Day Years Used Date Smoking Tobacco: Former Cigarettes Q uit: 1986 Smokeless Tobacco: Never Alcohol Use Standard Drinks/Week Comments Not Currently 0 (1 standard drink = 0.6 oz pur e alcohol) Humiliation, Afraid, Rape, and Kick questionnair e [...] neighbors? More than three times a week 12/11/2022 How often do you get togethe r with friends or relatives? More than three times a week 12/11/2022 How often do you attend chur ch or caodaism services? Never 12/11/2022 Active Member of Clubs or Organizations Not on f ile 12/11/2022 How often do you attend meet ings of the clubs or organizations you belong to? Patient declined 12/11/2022 Are you , , di vorced, , never , or living with a partner? 12/11/2022 AUDIT-C Answer Date Recorded Q1: How often do you have a drink containing alcohol? Never 12/11/2022 Q2: How many drinks containi ng alcohol do you have on a typical day when you are drinking? Patient does not drink Q3: How often do you have si x or more drinks on one occasion? Never 12/11/2022 Overall Financial Resource Strain (CARDIA) Answe r Date Recorded How hard is it for you to pa y for the very basics like food, housing, medical care, and heating? Not hard at all 12/11/2022 PHQ-2 Answer Date Recorded Patient Health Questionnaire-2 Score 0 02/06/2023 [facility] - Occupational Stress Questionnaire Answer Date Recorded Do you feel stress - tense, restless, nervous, or anxious, or unable to sleep at night because your mind is troubled all the time - these days? To some extent 12/11/2022 Exercise Vital Sign Answer Date Recorde d On average, how many days pe r week do you engage in moderate to strenuous exercise (like a brisk walk)? 3 days 12/11/2022 On average, how many minutes do you engage in exercise at this level? 30 min 12/11/2022 Hunger Vital Sign Answer Date Recorded Within the past 12 months, y ou worried that your food would run out before you got the money to buy more. Never true 12/12/19 23 Within the past 12 months, t he food you bought just didn't last and you didn't have money to get more. Never true 12/11/2022 PRAPARE - Transportation Answer Date Re corded In the past 12 months, has l ack of transportation kept you from medical appointments or from getting medications? No 11/13 In the past 12 months, has l ack of transportation kept you from meetings, work, or from getting things needed for daily living? No 12/11/2022 Housing Stability Vital Sign Answer [...] place to sleep or slept in a long-term (including now)? No 12/11/2022 Education Answer Date Recorded What is the [...] on file documented as of this encounter Plan of Treatment Upcoming Encounters Date Type Department Care Team (Late st Contact Info) Description 01/06/2025 11:30 AM EDT Office Visit [facility] [address] [place] [address] Jayme Parham MD [address] [place] [address] (Fax) 01/07/2025 12:00 PM EDT Treatment [facility] [address] [place] [address] Clara Whitten PTA 01/10/2025 11:00 AM EDT Treatment [facility] [address] [place] [address] Joselyn Narvaez, PT 02/02/2025 1:30 PM EDT Office Visit [facility] [address] [place] [address] Mick Farmer DO [address] [place] [address] documented as of this encounter Visit Diagnoses Not on filedocumented in this encounter Additional Health Concerns Assessment Noted Time PHQ-9 Depression Total Score: 7 05/22/20 23 2:00 PM EST documented as of this encounter Care Teams Filter Cleaner Relationship Specialty Start Date End Date Jayme Parham MD [address] [place] [address] PCP - General Family Medicine 11/25/22 Jayme Parham MD [address] [facility] [address] [place] [address] PCP - ACO Reach 12/05/22 Mick Farmer DO [address] [place] [address] Referring Physician Ophthalmology 08/21/23 Renato Santacruz MD [address] [place] [address] Referring Physician Urology 08/21/23 Chuy Wood MD [address] [facility] Professional building [address] [place] [phone] Referring Physician Rheumatology 08/21/23 documented as of this encounter
--- OUTSIDE RECORDS SUMMARY | 2025-01-06 11:10 | XMS_ITS | Clinical Summary ---
Author Organization [facility] Address [address] [place] [address] Care Team Providers Care Automotive Paint Technician Name Role Phone Unavailable Primary Care Provider Unavailabl e Social History Tobacco Use Types Packs/Day Years Used Date Smoking Tobacco: Never Assessed [place] Safety & Environment Answer Date Rec orded Fear of Current or Ex-Partner Not on file Emotionally Abused Not on file 09/04/2023 Physically Abused Not on file 09/04/2023 Sexually Abused Not on file 09/04/2023 Physically or Sexually Abused Not on file Comments Unknown Sex and Gender Information Value Date Recorded Sex Assigned at Not on file Legal Sex Female 9:40 PM EDT Gender Identity Not on file Sexual Orientation Not on file Plan of Treatment Health Maintenance Due Date Last Done Comments Medicare Annual Wellness (AWV) 1945 Depression Screening 1958 Adult Tetanus 1968 Pneumococcal Vaccine: 50+ Ye ars (1 of 1 - PCV) 1996 Zoster Vaccines (1 of 2) 1996 Fall Risk Screening 2011 COVID-19 Vaccine ( - 2023-2 5 season) 2024 Influenza Vaccine (Season Ended) 2025 HIB Vaccines Aged Out No longer eligi ble based on patient's age to complete this topic HPV Vaccines Aged Out No longer eligi ble based on patient's age to complete this topic IPV Vaccines Aged Out No longer eligi ble based on patient's age to complete this topic Meningococcal B Vaccine Aged Out No l onger eligible based on patient's age to complete this topic Meningococcal Vaccine Aged Out No geri musa eligible based on patient's age to complete this topic Rotavirus Vaccines Aged Out No longer eligible based on patient's age to complete this topic Insurance MEDICARE
--- OUTSIDE RECORDS SUMMARY | 2025-01-06 11:10 | XMS_ITS | Clinical Summary ---
Author Organization [facility] Address [address] [place] [address] Care Team Providers Care Timing Adjuster Name Role Phone Jayme Parham MD Primary Care Provider [phone] Jayme Parham MD Unavailable [phone] Mick Farmer DO Unavailable [phone] Renato Santacruz MD Unavailable [phone] Chuy Wood MD Unavailable [phone] Allergies Active Allergy Reactions Criticality Noted Date Comments Ciprofloxacin Low 02/18/2022 Other Reaction(s): bennett, Unknown Hydrocodone Bit-Homatrop Mbr Dizziness 08/07/2023 Ketorolac Nausea Only 01/06/2023 Other Reaction(s): Unknown Severe Latex 01/06/2023 Other Reaction(s): Blister Medical Adhesive Remover 02/18/2022 Other Reaction(s): facial edema, redness/metrogel Metronidazole 02/18/2022 Other Reaction(s): facial edema, redness/metrogel Nsaids Low 02/18/2022 Other Reaction(s): Abdominal Pain, Unknown Pioglitazone 01/06/2023 Other Reaction(s): Unknown, Vomiting Sulfa Antibiotics 02/18/2022 Other Reaction(s): rash swelling Medications acetaminophen (Tylenol) 325 MG tablet Take 325 mg by mouth every 6 (six) hours if needed. 2 tables as needed orally every 6 hours Active calcium citrate 1040 MG tablet Take 250 mg by mouth in the morning and 250 mg in the evening and 250 mg before bedtime. 1 tablet orally three times a day. Active cinnamon 500 MG capsule Take 500 mg by mouth in the morning and 500 mg before bedtime. 1 capsule orally twice a day. Active Cyanocobalamin (Vitamin B12) [address] 3,000 mcg under the tongue 1 (one) time each day. Active esomeprazole (NexIUM) [address] capsule Take 20 mg by mouth 1 (one) time each day. 1 capsule orally once a day Active Spacer/Aero-Holdi ng Chambers (BreatheRite Leonor Spacer Adult) miscIndications:C hronic obstructive pulmonary disease with acute exacerbation (HCC) 2 puffs 4 (four) times a day as needed (sob and cough) 1 each 4 Active albuterol HFA 90 mcg/act inhalerIndication s:Chronic obstructive pulmonary disease with acute exacerbation (HCC) Inhale 2 puffs in the morning and 2 puffs at noon and 2 puffs in the evening and 2 puffs before bedtime. 18 g 4 Active traZODone (Desyrel) 50 MG tabletIndications :Insomnia Titrate nightly from 1/2 tablet up to 2 tablets by 1/2 tablet increments as tolerated 60 tablet 4 Active acarbose (Precose) 100 MG tabletIndications :Type 2 diabetes mellitus with stage 3a chronic kidney disease, without long-term current use of insulin ([facility]) Take 1 tablet (100 mg) by mouth in the morning and 1 tablet (100 mg) at noon and 1 tablet (100 mg) in the evening. Take with meals. 270 tablet 1 5 04/16/20 25 Active metFORMIN (Glucophage) 1000 MG tabletIndications :Type 2 diabetes mellitus with stage 3a chronic kidney disease, without long-term current use of insulin ([facility]) Take 1 tablet (1,000 mg) by mouth in the morning and 1 tablet (1,000 mg) in the evening. Take with meals. 180 tablet 1 5 04/16/20 25 Active predniSONE (Deltasone) 5 MG tablet Take 2.5 mg by mouth Daily Active Methotrexate 12.5 MG/0.5ML solution prefilled syringe Inject 0.5 mL under the skin 1 (one) time per week Active golimumab (Simponi) 100 MG/ML solution auto-injector Inject 100 mg under the skin every 8 (eight) weeks Active warfarin (Coumadin) 4 MG tabletIndications :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 (HCC) Take 1 tablet (4 mg) by mouth at bedtime Active meclizine (Antivert) 12.5 MG tabletIndications :Vertigo Take 0.5-1 tablets (6.25-12.5 mg) by mouth 3 (three) times a day as needed for dizziness for up to 20 days 60 tablet 5 01/12/20 25 Active Active Problems Problem Noted Date Diagnosed Date Type 2 diabetes mellitus wit h diabetic microalbuminuria, without long-term current use of insulin 11/02/2024 BMI 22.0-22.9, adult 07/30/2023 residential current use of anticoagulant Pseudophakia 06/18/2023 Glaucoma suspect of both eyes 05/19/2023 Dry eyes 05/19/2023 Chronic diastolic heart failure 12/12/2022 DDD (degenerative disc disease), lumbar 12/13/19 Diverticulosis of large intestine without hemorr claudia 12/12/2022 Gastroesophageal reflux disease without esophagi tis 12/12/2022 Heart murmur 12/12/2022 Immunosuppressed status 12/12/2022 Iron deficiency 12/12/2022 Microalbuminuria 12/12/2022 Moderate aortic stenosis 12/12/2022 Osteoarthritis of lumbar spine 12/12/2022 Osteopenia 12/12/2022 Osteoporosis 12/12/2022 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 12/12/2022 Post menopausal syndrome 12/12/2022 Psoriatic arthropathy 12/12/2022 Sleep disorder 12/12/2022 Stage 3a chronic kidney disease 12/12/2022 Type 2 diabetes mellitus wit h diabetic chronic kidney disease 12/12/2022 Ventricular hypertrophy 12/12/2022 Vitamin D deficiency 12/12/2022 Resolved Problems Problem Noted Date Diagnosed Date Resolved Date Type 2 diabetes mellitus wit hout complication, without long-term current use of insulin 12/31/2023 04/07/2024 Age-related nuclear cataract of right eye 06/25/2023 12/31/2023 Type 1 diabetes mellitus without complication 05/19/20 23 05/22/2023 Age-related nuclear cataract of both eyes 05/19/2023 12/31/2023 Blepharitis of upper and low er eyelids of both eyes 05/19/2023 11/04/2024 Overweight 12/12/2022 07/30/2023 Former smoker 03/27/2017 08/07/2023 Encounters Date Type Department Care Team Description 01/05/2025 11:00 AM EDT Treatment [facility] [address] [place] [address] Kelbley, Clara, ELEVATOR CONSTRUCTOR Vertigo (Primary Dx) 01/05/2025 Bamboo flowsheet [facility] [address] [place] [address] Kelbley, Clara, ELEVATOR CONSTRUCTOR 01/05/2025 Travel 12/31/2024 12:30 PM EDT Treatment [facility] [address] [place] [address] Kelbley, Clara, ELEVATOR CONSTRUCTOR Vertigo (Primary Dx) 12/31/2024 Bamboo flowsheet [facility] [address] [place] [address] Kelbley, Clara, ELEVATOR CONSTRUCTOR 12/31/2024 Travel 12/29/2024 12:30 PM EDT Treatment [facility] [address] [place] [address] Kelbley, Clara, ELEVATOR CONSTRUCTOR Vertigo (Primary Dx) 12/29/2024 Bamboo flowsheet [facility] [address] [place] [address] Kelbley, Clara, ELEVATOR CONSTRUCTOR 12/29/2024 Travel 12/23/2024 12:30 PM EDT Evaluation [facility] [address] [place] [address] Joselyn Narvaez, PT Vertigo (Primary Dx) 12/23/2024 Plan of Care Documentation [facility] [address] [place] [address] 12/23/2024 Bamboo flowsheet [facility] [address] [place] [address] Brice Joselyn, PT 12/23/2024 Travel 12/22/2024 11:45 AM EDT Office Visit [facility] [address] [place] [address] Jayme Parham MD Vertigo (Primary Dx); 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 (HCC); 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; Medication monitoring encounter 12/22/2024 Bamboo flowsheet [facility] [address] [place] [address] Jayme Parham MD 12/22/2024 Travel 12/08/2024 Results Follow-Up [facility] [address] [place] [address] Kimberly Norris, MA 12/08/2024 Clinisync Result Encounter [facility] External Department Unsolicited Jayme Parham MD 11/24/2024 Telephone [facility] [address] [facility] [address] [place] [address] Kimberly Norris, MA Results 11/24/2024 Orders Only [facility] [address] [place] [address] Jayme Parham MD 11/24/2024 Clinisync Result Encounter [facility] External Department Unsolicited Provider, Generic External Data 11/04/2024 2:00 PM EDT Office Visit [facility] [address] [facility] [address] [place] [address] Jayme Parham MD Encounter for Medicare annual wellness exam (Primary Dx); Advance directive discussed with patient; Encounter for screening for other disorder; Screening for alcohol problem; Screening mammogram, encounter for; Iron deficiency; Chronic diastolic heart failure (HCC); 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 (HCC); Stage 3a chronic kidney disease (CMS-HCC); Age-related osteoporosis without current pathological fracture ; Psoriatic arthropathy (HCC); Type 2 diabetes mellitus with stage 3a chronic kidney disease, without long-term current use of insulin (HCC); Type 2 diabetes mellitus with diabetic microalbuminuria, without long-term current use of insulin (HCC); Immunosuppressed status ([facility]) 11/04/2024 Bamboo flowsheet [facility] [address] [facility] [address] [place] [address] Jayme Parham MD 11/04/2024 Travel 11/02/2024 Orders Only [facility] [address] [place] [address] Jayme Parham MD Type 2 diabetes mellitus with diabetic microalbuminuria, without long-term current use of insulin (HCC) (Primary Dx) 11/02/2024 Clinisync Result Encounter [facility] External Department Unsolicited Jayme Parham MD 10/25/2024 Results Follow-Up [facility] [address] [facility] [address] [place] [address] Kimberly October, [place] 10/25/2024 Clinisync Result Encounter [facility] External Department Unsolicited Jayme Parham MD 10/21/2024 10:30 AM EDT Office Visit [facility] [address] [facility] [address] [place] [address] Jayme Parham MD Type 2 diabetes mellitus with stage 3a chronic kidney disease, without long-term current use of insulin (HCC); Stage 3a chronic kidney disease (CMS-HCC); Microalbuminuria; 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 (HCC); 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 10/21/2024 Bamboo flowsheet [facility] [address] [facility] [address] [place] [address] Jayme Parham MD 10/21/2024 Travel 10/18/2024 Telephone [facility] [address] [facility] [address] [place] [address] Kimberly October, [place] Care Coordination 10/18/2024 Clinisync Result Encounter [facility] External Department Unsolicited Provider, Generic External Data 10/16/2024 Refill [facility] [address] [facility] [facility] [place] [address] Jayme Parham MD 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 (HCC) 10/14/2024 Travel 10/09/2024 Refill [facility] [address] [place] [address] Jayme Parham MD Type 2 diabetes mellitus with stage 3a chronic kidney disease, without long-term current use of insulin (HCC) from Last 3 Months Family History Medical History Relation Name Comments No Known Problems Maternal Grandfather No Known Problems Maternal Grandmother Heart disease Mother No Known Problems Paternal Grandfather No Known Problems Paternal Grandmother Relation Name Status Comments Brother 3 brothers Daughter 1 daughter Father Maternal Grandfather Maternal Grandmother Mother Paternal Grandfather Paternal Grandmother Son 2 sons Social History Tobacco Use Types Packs/Day Years Used Date Smoking Tobacco: Former Cigarettes Q uit: 1986 Smokeless Tobacco: Never Tobacco Cessation:Counseling Given: Yes Alcohol Use Standard Drinks/Week Comments Not Currently [...] week 04/08/2024 How often do you attend [facility] or yazidi services? Never 04/08/2024 Do you belong to any clubs o r organizations such as gnosticist groups, unions, fraternal or athletic groups, or [...] Recorded Patient Health Questionnaire-2 Score 0 11/04/2024 [facility] - Occupational [...] place to sleep or slept in a jail (including now)? No 12/11/2022 Housing Stability Vital Sign Answer Stefan e Recorded In the last 12 months, was t here a time when you were not able to pay the mortgage or rent on time? No 04/08/2024 In the past 12 months, how m any times have you moved where you were living? 0 04/08/2024 At any time in the past 12 m [facility], were you homeless or living in a jail (including now)? No 04/08/2024 Education Answer Date [...] PM EDT Sexual Orientation Not on file Last Filed Vital Signs Vital Sign Reading Time Taken Comments Blood Pressure 122/76 11/04/2024 1:54 PM EDT Pulse 100 11/04/2024 1:54 PM EDT Temperature - - Respiratory Rate - - Oxygen Saturation 99% 11/04/2024 1:54 PM EDT Inhaled Oxygen Concentration - - Weight 57.6 kg (127 lb) 12/22/2024 11:35 AM EDT Height 160 cm (5' 3 ) 12/22/2024 11:35 AM EDT Body Mass Index 22.5 12/22/2024 11:35 AM EDT Plan of Treatment Upcoming Encounters Date Type Department Care Team (Late st Contact Info) Description 01/06/2025 11:30 AM EDT Office Visit [facility] 100 [address] [facility] [address] [place] [address] Jayme Parham MD [address] [place] [address] 01/07/2025 12:00 PM EDT Treatment [facility] [address] [place] [address] Clara Whitten, ELEVATOR CONSTRUCTOR 01/10/2025 11:00 AM EDT Treatment [facility] [address] [place] [address] Brice Joselyn, PT 02/02/2025 1:30 PM EDT Office Visit [facility] [address] [place] [address] Mick Farmer DO [address] [place] [address] Health Maintenance Due Date Last Done Comments Influenza Vaccine (Season Ended) 2025 Diabetes: Hemoglobin A1C 04/19/2025 04 025, 02/03/2023, 08/09/2022, Additional history exists Pneumococcal Vaccine: 65+ Years (1 of 2 - PCV) 09/13/2025 Postponed from 1965 (Patient Refused) Diabetes: Urine Protein Screening 11/02/2025 11/02/2024, 09/13/2019, 09/25/2017 Diabetes: Retinopathy Screening 08/04/2026 08/04/2024, 08/04/2024, 08/04/2024, Additional history exists Procedures Procedure Name Priority Date/Time Associated Diagnosis Comments [facility] PROTHROMBIN TIME INR W/O COUM Routine 12/08/2024 12:22 PM EDT ALL MAGNESIUM Routine 11/24/2024 10:15 AM EDT ALL PHOSPHOROUS Routine 11/24/2024 10:15 AM EDT [facility] CMP (CMP) (FOR [facility]OTE [facility] USE) Routine 11/24/2024 10:15 AM EDT [facility] PROTHROMBIN TIME INR W/O COUM Routine 11/24/2024 10:15 AM EDT ALL SED RATE Routine 11/24/2024 10:15 AM EDT ALL CBC WITH AUTO DIFF Routine 11/24/2024 10:15 AM EDT TBH MICROALB CREAT RATIO RANDOM Routine 11/02/2024 9:44 AM EDT [facility] PROTHROMBIN TIME INR W/O COUM Routine 10/25/2024 11:06 AM EDT ALL SED RATE Routine 10/18/2024 10:23 AM EDT ALL LIPID PROFILE (FASTING) Routine 10/18/2024 10:23 AM EDT [facility] CMP (CMP) (FOR [facility] USE) Routine 10/18/2024 10:23 AM EDT ALL MAGNESIUM Routine 10/18/2024 10:23 AM EDT ALL PHOSPHOROUS Routine 10/18/2024 10:23 AM EDT MLR HEMOGLOBIN A1C Routine 10/18/2024 10 :23 AM EDT ALL CBC WITH AUTO DIFF Routine 10/18/2024 10:23 AM EDT HEMOGLOBIN A1C Routine 02/03/2023 12:42 PM EDT Type 2 diabetes mellitus with stage 3a chronic kidney disease, without long-term current use of insulin (HCC) COLOR FUNDUS PHOTOGRAPHY - OU - BOTH EYES Routine 05/14/2021 12:00 PM EDT MICROALBUMIN, URINE QUANT Routine 09/13/2019 12:00 PM EST from Last 3 Months or Most Recently Relevant to Health Maintenance Results * (ABNORMAL) [facility] PROTHROMBIN TIME INR W/O COUM (12/08/2024 12:22 PM EDT) Only the most recent of3 resultswithin the time period is included. PROTHROMBIN TIME 22.8(H) 9.0 - 11.6 sec TBH TBH INR 2.34 TBH Comment: DESIRED INR: 2.0-3.0 CONDITIONS NOT LISTED BELOW 2.5-3.5 FOR PROSTHETIC HEART VALVE REPLACEMENT 2.5-3.5 RECURRENT THROMBOSIS 12/08/2024 12:2 2 PM EDT 12/08/2024 12:22 PM EDT Narrative [facility] - 12/08/2024 12:58 PM EDT Jayme Parham MD [facility] Final Result [facility] * (ABNORMAL) [facility] CMP (CMP) (FOR [facility] USE) (11/24/2024 10:15 AM EDT) Only the most recent of2 resultswithin the time period is included. SODIUM 140 136 - 145 mmol/L TBH POTASSIUM 4.7 3.5 - 5.1 mmol/L TBH CHLORIDE 104 98 - 107 mmol/L TBH CARBON DIOXIDE 33.5(H) 21.0 - 32.0 mmol/L TBH ANION GAP 7.2 TBH GLUCOSE 136(H) 74 - 106 mg/dL TBH BLOOD UREA NITROGEN 19.0(H) 7.0 - 18.0 mg/dL TBH CREATININE 0.92 0.55 - 1.02 mg/dL TBH TBH EGFR-AF [place]I >60 >=60 mL/min/1. 73m 2 TBH TBH EGFR-NON AF [place] 59(L) >=60 mL/min/1. 73m 2 TBH BUN CREATININE RATIO 20.7 TBH CALCIUM 9.6 8.5 - 10.1 mg/dL TBH BILIRUBIN TOTAL 0.4 0.2 - 1.0 mg/dL TBH ASPARTATE AMINO TRANSFERASE 12(L) 15 - 37 U/L TBH ALANINE AMINOTRANSFERASE 19 14 - 59 U/L TBH ALKALINE PHOSPHATASE 54 46 - 116 U/L TBH TOTAL PROTEIN 6.9 6.4 - 8.2 g/dL TBH ALBUMIN LEVEL 3.8 3.4 - 5.0 g/dL TBH GLOBULIN 3.1 g/dL TBH ALBUMIN GLOBULIN RATIO 1.2 TBH 11/24/2024 10:1 5 AM EDT 11/24/2024 10:17 AM EDT Narrative CLINISYNC - 11/24/2024 11:46 AM EDT Generic External Data Provider CLINISYNC F inal Result Performing Organization Address [facility] de Phone Number [facility] * ALL SED RATE (11/24/2024 10:15 AM EDT) Only the most recent of2 resultswithin the time period is included. Pathologist [facility] SED RATE 18 <=30 mm/hr TB 11/24/2024 10:1 5 AM EDT 11/24/2024 10:17 AM EDT Narrative CLINISYNC - 11/24/2024 11:13 AM EDT Generic External Data Provider CLINISYNC F inal Result Performing Organization Address [facility] de Phone Number [facility] * (ABNORMAL) ALL PHOSPHOROUS (11/24/2024 10:15 AM EDT) Only the most recent of2 resultswithin the time period is included. Pathologist [facility] PHOSPHORUS 2.2(L) 2.6 - 4.7 mg/dL TB 11/24/2024 10:1 5 AM EDT 11/24/2024 10:17 AM EDT Narrative CLINISYNC - 11/24/2024 11:46 AM EDT Generic External Data Provider CLINISYNC F inal Result Performing Organization Address [facility] de Phone Number [facility] * ALL MAGNESIUM (11/24/2024 10:15 AM EDT) Only the most recent of2 resultswithin the time period is included. MAGNESIUM 2.0 1.8 - 2.4 mg/dL TBH 11/24/2024 10:1 5 AM EDT 11/24/2024 10:17 AM EDT Narrative CLINISYNC - 11/24/2024 11:46 AM EDT us Generic External Data Provider [facility]IN[facility]YNC F inal Result [facility] * (ABNORMAL) ALL CBC WITH AUTO DIFF (11/24/2024 10:15 AM EDT) Only the most recent of2 resultswithin the time period is included. TBH WBC 5.7 4.0 - 11.0 10 3/uL TBH TBH RBC 4.10(L) 4.20 - 5.40 10 6/uL TBH TBH HGB 12.7 12.0 - 16.0 g/dL TBH TBH HCT 39.6 36.0 - 48.0 % TBH TBH MCV 96.6 81.0 - 99.0 fL TBH TBH MCH 31.0 26.7 - 34.0 pg TBH TBH MCHC 32.1 29.9 - 35.2 g/dL TBH TBH RDW 14.6 11.0 - 15.0 % TBH TBH PLT 284 150 - 450 10 3/uL TBH TBH MPV 8.8(L) 9.5 - 13.5 fL TBH NEUTROPHILS PERCENT AUTO 51.2 43.0 - 75.0 % TBH LYMPHOCYTES PERCENT AUTO 32.0 20.5 - 60.0 % TBH MONOCYTES PERCENT AUTO 9.9 1.7 - 12.0 % TBH TBH EO % 5.6 0.9 - 7.0 % TBH BASOPHILS PERCENT AUTO 0.9 0.2 - 2.0 % TBH IMMATURE GRANULOCYTES PCT AUTO 0.4 0.0 - 0.5 % TBH NEUTROPHILS ABSOLUTE AUTO 2.9 1.4 - 6.5 10 3/uL TBH LYMPHOCYTES ABSOLUTE AUTO 1.8 1.2 - 3.8 10 3/uL TBH MONOCYTES ABSOLUTE AUTO 0.6 0.3 - 0.8 10 3/uL TBH TBH EO # 0.3 0.0 - 0.7 10 3/uL TBH BASOPHILS ABSOLUTE AUTO 0.1 0.0 - 0.1 10 3/uL TBH IMMATURE GRANULOCYTES ABS AUTO 0.02 0.00 - 0.03 10 3/uL TBH 11/24/2024 10:1 5 AM EDT 11/24/2024 10:17 AM EDT Narrative CLINISYNC - 11/24/2024 10:43 AM EDT Generic External Data Provider CLINISYNC F inal Result Performing Organization Address [facility] Co de Phone Number CLINISYNC TB * (ABNORMAL) TBH MICROALB CREAT RATIO RANDOM (11/02/2024 9:44 AM EDT) MICROALBUMIN URINE RANDOM 19.4 <=30.0 mg/dL TBH CREATININE URINE RANDOM 149.56 20.00 - 300.00 mg/dL TB MICROALBUM CREATININE RATIO UR 129.7(H) 0.0 - 29.9 mg/g TBH Comment: NO MICROALBUMINURIA 0-29 MG/G CLINICAL MICROALBUMINURIA 30-300 MG/G MACROALBUMINURIA >300 MG/G 11/02/2024 9:44 AM EDT 11/02/2024 9:49 AM EDT Narrative CLINISYNC - 11/02/2024 10:17 AM EDT Jayme PLUMMERISYEMILY Final Result Performing Organization Address [facility] de Phone Number CLINISYNC TB * (ABNORMAL) MLR HEMOGLOBIN A1C (10/18/2024 10:23 AM EDT) GLYCOHEMOGLOBIN A1C 6.4(H) 4.5 - 6.2 % TBH Comment: ADA RECOMMENDED LIMIT 4.0 - 6.0 ADA THERAPEUTIC TARGET < 7.0 ACTION SUGGESTED > 7.0 ESTIMATED AVERAGE GLUCOSE 137 mg/dL TBH 10/18/2024 10:2 3 AM EDT 10/18/2024 10:25 AM EDT Narrative CLINISYNC - 10/18/2024 10:45 AM EDT Jayme Parham MD CLINISYNC Final Result Performing Organization Address [facility] de Phone Number CLINISYNC TB * (ABNORMAL) ALL LIPID PROFILE (FASTING) (10/18/2024 10:23 AM EDT) TRIGLYCERIDES 202(H) <=150 mg/dL TBH CHOLESTEROL 201(H) <=200 mg/dL TB HDL CHOLESTEROL 95(H) 40 - 60 mg/dL TB Comment: > or =60 mg/dl - LOW CARDIOVASCULAR RISK <40 mg/dl - HIGH CARDIOVASCULAR RISK LDL CHOLESTEROL CALCULATED 66.0 mg/dL TB Comment: <100 mg/dl OPTIMAL 100-129 mg/dl NEAR OR ABOVE OPTIMAL 130-159 mg/dl BORDERLINE HIGH 160-189 mg/dl HIGH >190 mg/dl VERY HIGH VLDL CHOLESTEROL 40.4 mg/dL TB CHOL HDL RATIO 2.1 TB Comment: 3.3 - 4.4 LOW RISK 4.4 - 7.1 AVERAGE RISK 7.1 - 11.0 MODERATE RISK >11.0 HIGH RISK 10/18/2024 10:2 3 AM EDT 10/18/2024 10:25 AM EDT Narrative CLINISYNC - 10/18/2024 10:56 AM EDT Jayme Parham MD CLINISYNC Final Result Performing Organization Address [facility][1] de Phone Number CLINISYNC TBH * (ABNORMAL) Hemoglobin A1c (02/03/2023 12:42 PM EDT) Blood Venous blood specimen / Unknown Jayme Parham MD LAB BLOOD ORDERABLES Final R esult Performing Organization Address [facility] Co de Phone Number [facility] * Color Fundus Photography - OU - Both Eyes (05/14/2021 12:00 PM EDT) Anatomical Region Laterality Modality Head Fundus Photograp hy 05/14/2021 12:0 0 PM EDT Narrative 05/14/2021 12:00 PM EDT PERFORMED AT [facility] LOCATION:[id number] [facility] Procedure Note CONVERSION, GENERIC - 11/27/2022 PERFORMED AT [facility] LOCATION:[id number] NDR Jayme Parham MD OPHTH PHOTOGRAPHY Final Resu lt * MICROALBUMIN, URINE QUANT (09/13/2019 12:00 PM EST) GENERIC LEGACY COMPONENT INTERNAL 0-1,500 [facility] NONXML LABS GENERIC LEGACY COMPONENT INTERNAL 75 [facility] NONXML [facility]S 09/13/2019 12:0 0 PM EST Jayme Parham MD [facility] Final Result [facility] NONXML LABS from Last 3 Months or Most Recently Relevant to Health Maintenance Insurance MEDICARE AET Care Teams Timing Adjuster Relationship Specialty Start Date End Date Jayme Parham MD [address] [place] [id number] PCP - General Family Medicine 11/25/22 Jayme Parham MD [address] [facility] [address] [place] [address] PCP - ACO Reach 12/05/22 Mick Farmer DO [address] [place] [address] Referring Physician Ophthalmology 08/21/23 Renato Santacruz MD [address] [place] [address] Referring Physician Urology 08/21/23 Chuy Wood MD [address] [facility] Professional building [address] [place] [id number] Referring Physician Rheumatology 08/21/23
--- OUTSIDE RECORDS SUMMARY | 2025-01-06 11:10 | XMS_ITS | Encounter Summary ---
Author Organization [facility] Address [address] [place] [address] Care Team Providers Care Computed Tomography Technologist Name Role Phone Jayme Perez MD Primary Care Provider [phone] Jayme Perez MD Unavailable [phone] Mick Farmer DO Unavailable [phone] Renato Santacruz MD Unavailable [phone] Radames Wood MD Unavailable [phone] Encounter Details Date Type Department Care Team (Late st Contact Info) Description 01/14/2024 Clinisync Result Encounter [facility] External Department Unsolicited Provider, Generic External Data Social History Tobacco Use Types Packs/Day Years Used Date Smoking Tobacco: Former Cigarettes Q uit: 1987 Smokeless Tobacco: Never Alcohol Use Standard Drinks/Week [...] often do you attend chur ch or mosque services? Never 12/11/2022 Active Member of Clubs [...] Recorded Patient Health Questionnaire-2 Score 0 02/06/2023 [facility] - Occupational Stress Questionnaire Answer Date [...] in a fpc (including now)? No 12/11/2022 Education Answer Date [...] FM [address] [place] [address] Jayme Perez MD [address] [place] [address] 01/07/2025 12:00 PM EDT Treatment [facility] PT [address] [place] [address] Clara Whitten, CLINICAL PHARMACY SPECIALIST 01/10/2025 11:00 AM EDT Treatment [facility] PT [address] [place] [address] Joselyn Narvaez, PT 02/02/2025 1:30 PM EDT Office Visit [facility] [address] [place] [phone] Mick Farmer, DO [address] [place] [address] documented as of this encounter Procedures Procedure Name Priority Date/Time Associated Diagnosis Comments XR DEXA AXIAL SKELETON 01/14/2024 3:50 PM EDT documented in this encounter Results * XR DEXA AXIAL SKELETON (01/14/2024 3:50 PM EDT) Anatomical Region Laterality Modality Other 01/14/2024 3:50 PM EDT Narrative 01/14/2024 3:53 PM EDT [address] [address] XRay Report Signed Patient: WILDA SEN MR#: [id number] : 1945 Acct:[id number] Age/Sex: 78 / F ADM Date: 01/14/24 Loc: [facility] Attending Dr: RADAMES WOOD Ordering Physician: RADAMES WOOD Date of Service: 01/14/24 Procedure(s): XR DEXA axial skeleton Accession Number(s): [id number] cc: JAYME PEREZ ; RADAMES WOOD The [address] [address] Patient Name: WILDA SEN MRN: [id number] date: 1945 Sex: F Assigned Patient Location: RAD Current Patient Location: RAD Accession/Order Number: [id number] Exam Date: 01/14/2024 12:48 Report Date: 01/14/2024 15:50 At the request of: RADAMES WOOD Procedure: XR DEXA axial skeleton EXAMINATION: XR DEXA axial skeleton HISTORY: Osteoporosis COMPARISON: DEXA bone densitometry 05/09/2021 TECHNIQUE: Dual-energy X-ray absorptiometry (DXA) was performed. FINDINGS: SPINE ANALYSIS: Average bone mineral density is 0.794 g/cm2. T-score (standard deviation relative to young adult mean): -3.2 . +5.4% change since prior study. HIP ANALYSIS: Lowest bone mineral density is within the left femoral neck, 0.758 g/cm2. T-score (standard deviation relative to young adult mean): -2.0 . +4.2% change since prior study. XR/XR DEXA axial skeleton IMPRESSION: World Health Organization Classification: Osteoporosis - High Fracture Risk FRAX: Cannot calculate. Pharmacologic treatment recommendations * No uniform recommendation applies to all patients. Management plans must be individualized. * Consider initiating pharmacologic treatment in postmenopausal women and men >= 50 years of age who have the following: Primary fracture prevention: * T-score <= - 2.5 at the femoral neck, total hip, lumbar spine, 33% radius (some uncertainty with existing data) by DXA. * Low bone mass (osteopenia: T-score between - 1.0 and - 2.5) at the femoral neck or total hip by DXA with a 10-year hip fracture risk >= 3% or a 10-year major osteoporosis-related fracture risk >= 20% (i.e., clinical vertebral, hip, forearm, or proximal humerus) based on the US-adapted FRAXregistered model. Secondary fracture prevention: * Fracture of the hip or vertebra regardless of BMD [4, 5]. * Fracture of proximal humerus, pelvis, or distal forearm in persons with low bone mass (osteopenia: T-score between - 1.0 and - 2.5). The decision to treat should be individualized in persons with a fracture of the proximal humerus, pelvis, or distal forearm who do not have osteopenia or low BMD [12, 13]. Leida MS, Keshawn SL, Edgar KL, Yelena EM, Elizabeth KG, AJ, Kitty ES. The clinician's guide to prevention and treatment of osteoporosis. Osteoporos Int. 2021;33(10):9988-9244. doi: 10.1007/r46115-807-00261-v. Epub 2021Nov 08. Erratum in: Osteoporos Int. 2021Feb 07;: PMID: 63441216; PMCID: [id number]. Electronically authenticated by: VARGHESE GARAY Date: 01/14/2024 15:50 Dictated By: Varghese Garay M.D. Signed By: 01/14/24 1553 DD/ 1550 TD/TT: Pbx Mechanic: Procedure Note Radiology, Radiologist, MD - 01/14/[address] [address] XRay Report Signed Patient: WILDA SEN R#: [id number] : 1945cct:[id number] Age/Sex: 78 / FADM Date: 01/14/24 Loc: [facility] Attending Dr: RADAMES WOOD Ordering Physician: RADAMES WOOD Date of Service: 01/14/24 Procedure(s): XR DEXA axial skeleton Accession Number(s): [id number] cc: JAYME PEREZ ; RADAMES WOOD The [place] [address] Patient Name: WILDA SEN MRN: [id number] date: 1945 Sex: F Assigned Patient Location: [facility] Current Patient Location: [facility] Accession/Order Number: [id number] Exam Date: 01/14/2024 12:48 Report Date: 01/14/2024 15:50 At the request of: RADAMES WOOD Procedure: XR DEXA axial skeleton EXAMINATION: XR DEXA axial skeleton HISTORY: Osteoporosis COMPARISON: DEXA bone densitometry 05/09/2021 TECHNIQUE: Dual-energy X-ray absorptiometry (DXA) was performed. FINDINGS: SPINE ANALYSIS: Average bone mineral density is 0.794 g/cm2. T-score (standard deviation relative to young adult mean): -3.2 . +5.4% change since prior study. HIP ANALYSIS: Lowest bone mineral density is within the left femoral neck, 0.758 g/cm2. T-score (standard deviation relative to young adult mean): -2.0 . +4.2% change since prior study. XR/XR DEXA axial skeleton IMPRESSION: World Health Organization Classification: Osteoporosis - High FractureRisk FRAX: Cannot calculate. Pharmacologic treatment recommendations * No uniform recommendation applies to all patients. Management plans mustbe individualized. * Consider initiating pharmacologic treatment in postmenopausal women andmen >= 50 years of age who have the following: Primary fracture prevention: * T-score <= - 2.5 at the femoral neck, total hip, lumbar spine, 33%radius (some uncertainty with existing data) by DXA. * Low bone mass (osteopenia: T-score between - 1.0 and - 2.5) at thefemoral neck or total hip by DXA with a 10-year hip fracture risk >= 3% or n22-ewij major osteoporosis-related fracture risk >= 20% (i.e., clinical vertebral, hip, forearm, or proximal humerus) based on the US-adapted FRAXregisteredmodel. Secondary fracture prevention: * Fracture of the hip or vertebra regardless of BMD [4, 5]. * Fracture of proximal humerus, pelvis, or distal forearm in persons withlow bone mass (osteopenia: T-score between - 1.0 and - 2.5). The decision totreat should be individualized in persons with a fracture of the proximalhumerus, pelvis, or distal forearm who do not have osteopenia or low BMD [12, 13]. Leida MS, Keshawn SL, Edgar KL, Yelena EM, Elizabeth KG, AJ,Kitty ES. The clinician's guide to prevention and treatment of osteoporosis.Osteoporos Int. 2021;33(10):5286-6512. doi: 10.1007/g42140-591-32740-w. Ep. Erratum in: Osteoporos Int. 2021Feb 07;: PMID: 54165008; PMCID: [id number]. Electronically authenticated by: VARGHESE GARAY Date: 01/14/2024 15:50 Dictated By: Varghese Garay M.D. Signed By:01/14/24 1553 DD/ 1550 TD/TT: Pbx Mechanic: us Generic External Data Provider [facility] Final Result documented in this encounter Visit Diagnoses Not on filedocumented in this encounter Additional Health Concerns Assessment Noted Time PHQ-9 Depression Total Score: 7 05/22/20 23 2:00 PM EST documented as of this encounter Care Teams Computed Tomography Technologist Relationship Specialty Start Date End Date Jayme Perez MD [address] [place] [address] PCP - General Family Medicine 11/25/22 Jayme Perez MD [address] [facility] [address] [place] [address] PCP - ACO Reach 12/05/22 Mick Farmer DO [address] [place] [address] Referring Physician Ophthalmology 08/21/23 Renato Santacruz MD [address] [place] [address] Referring Physician Urology 08/21/23 Radames Wood MD [address] [facility] Professional building 1 [place] [address] Referring Physician Rheumatology 08/21/23 documented as of this encounter
--- OUTSIDE RECORDS SUMMARY | 2025-01-06 11:10 | XMS_ITS | Encounter Summary ---
Author Organization [facility] Address [address] [place] [address] Care Team Providers Care Drag Down Name Role Phone Jayme Parham MD Primary Care Provider [phone] Jayme Parham MD Unavailable [phone] Mick Farmer DO Unavailable [phone] Renato Santacruz MD Unavailable [phone] Chuy Wood MD Unavailable [phone] Encounter Details Date Type Department Care Team (Late st Contact Info) Description 08/13/2023 Abstract [facility] [address] [place] [phone] Jr Jarrell MD [address] [facility] Social History Tobacco Use Types Packs/Day Years [...] often do you attend chur ch or jehovah's witness services? Never 12/11/2022 Active Member of Clubs [...] Recorded Patient Health Questionnaire-2 Score 0 02/06/2023 [facility] - Occupational Stress [...] place to sleep or slept in a mcc (including now)? No 12/11/2022 Education Answer Date [...] [address] [place] [address] Jayme Parham MD [address] [place] [address] (Fax) 01/07/2025 12:00 PM EDT Treatment [facility] PT [address] [place] [address] Clara Whitten, CARA 01/10/2025 11:00 AM EDT Treatment [facility] PT [address] [place] [address] Joselyn Narvaez, PT 02/02/2025 1:30 PM EDT Office Visit [facility] [address] [place] [address] Mick Farmer DO [address] [place] [address] documented as of this encounter Visit Diagnoses Not on filedocumented in this encounter Additional Health Concerns Assessment Noted Time PHQ-9 Depression Total Score: 7 05/22/20 23 2:00 PM EST documented as of this encounter Care Teams Drag Down Relationship Specialty Start Date End Date Jayme Parham MD [address] [facility] 100 [place] [address] PCP - General Family Medicine 11/25/22 Jayme Parham MD [address] [facility] 100 [place] [address] PCP - ACO Reach 12/05/22 Mick Farmer DO [address] [place] [address] Referring Physician Ophthalmology 08/21/23 Renato Santacruz MD [address] [place] [address] Referring Physician Urology 08/21/23 Chuy Wood MD [address] [facility] Professional building 1 [place] [address] Referring Physician Rheumatology 08/21/23 documented as of this encounter
--- OUTSIDE RECORDS SUMMARY | 2025-01-06 11:10 | XMS_ITS | Encounter Summary ---
Author Organization [facility] Address [address] [place] [address] Care Team Providers Care Certified Hyperbaric Technician Name Role Phone Jayme Parham MD Primary Care Provider [phone] Jayme Parham MD Unavailable [phone] Mick Farmer DO Unavailable [phone] Renato Santacruz MD Unavailable [phone] Chuy Wood MD Unavailable [phone] Encounter Details Date Type Department Care Team (Late st Contact Info) Description 04/19/2024 Orders Only [facility] FM [address] [place] [address] Jayme Parham MD [address] [place] [address] Social History Tobacco Use Types Packs/Day Years [...] 04/08/2024 How often do you attend chur or jain services? Never 04/08/2024 Do you belong to any clubs o r organizations such as scientology groups, unions, fraternal or athletic groups, or [...] Recorded Patient Health Questionnaire-2 Score 0 02/06/2023 [facility] - Occupational Stress [...] place to sleep or slept in a care home (including now)? No 12/11/2022 Housing Stability [...] any time in the past 12 m [facility], were you homeless or living in a care home (including now)? No 04/08/2024 Education Answer [...] [address] [place] [address] Jayme Parham MD [address] [place] [address] (Fax) 01/07/2025 12:00 PM EDT Treatment [facility] PT [address] [place] [address] Clara Whitten, HEARING THERAPY DIRECTOR 01/10/2025 11:00 AM EDT Treatment [facility] PT [address] [place] [address] NarvaezJoselyn, PT 02/02/2025 1:30 PM EDT Office Visit [facility] [address] [place] [address] Mick Farmer DO [address] [place] [address] documented as of this encounter Visit Diagnoses Not on filedocumented in this encounter Additional Health Concerns Assessment Noted Time PHQ-9 Depression Total Score: 7 05/22/20 23 2:00 PM EST documented as of this encounter Care Teams Certified Hyperbaric Technician Relationship Specialty Start Date End Date Jayme Parham MD [address] [place] [address] (Fax) PCP - General Family Medicine 11/25/22 Jayme Parham MD [address] [place] [address] (Fax) PCP - ACO Reach 12/05/22 Mick Farmer DO [address] [place] [address] Referring Physician Ophthalmology 08/21/23 Renato Santacruz MD [address] [place], [place] [address] Referring Physician Urology 08/21/23 Chuy Wood MD [address] [facility] Professional [address] [address] Referring Physician Rheumatology 08/21/23 documented as of this encounter
--- OUTSIDE RECORDS SUMMARY | 2025-01-06 11:10 | XMS_ITS | Encounter Summary ---
Author Organization [facility] Address [address] [place] [address] Care Team Providers Care Ground Defence Officer Name Role Phone Jayme Perez MD Primary Care Provider [phone] Jayme Perez MD Unavailable [phone] Mick Farmer DO Unavailable [phone] Renato Santacruz MD Unavailable [phone] Chuy Wood MD Unavailable [phone] Encounter Details Date Type Department Care Team (Late st Contact Info) Description 10/09/2023 Clinisync Result Encounter [facility] External Department Unsolicited [...] often do you attend chur ch or uatsdin services? Never 12/11/2022 Active Member of Clubs [...] Recorded Patient Health Questionnaire-2 Score 0 02/06/2023 [facility] - Occupational Stress Questionnaire Answer Date [...] place to sleep or slept in a skilled nursing (including now)? No 12/11/2022 Education Answer Date [...] FM [address] [place] [address] Jayme Perez MD [address] [place] [address] 01/07/2025 12:00 PM EDT Treatment [facility] PT [address] [place] [address] Clara Whitten, [employer] 01/10/2025 11:00 AM EDT Treatment [facility] PT [address] [place] [address] Joselyn Narvaez, PT 02/02/2025 1:30 PM EDT Office Visit [facility] [address] [place] [address] Mick Farmer, DO [address] [place] [address] documented as of this encounter Procedures Procedure Name Priority Date/Time Associated Diagnosis Comments XR ABDOMEN 1V 10/09/2023 6:22 AM EDT documented in this encounter Results * XR ABDOMEN 1V (10/09/2023 6:22 AM EDT) Anatomical Region Laterality Modality Other 10/09/2023 6:22 AM EDT Narrative 10/09/2023 6:25 AM EDT [address] [address] XRay Report Signed Patient: WILDA SEN MR#: [id number] : 1945 Acct:[id number] Age/Sex: 78 / F ADM Date: 10/08/23 Loc: RAD Attending Dr: Williams Jackson M.D. Ordering Physician: Williams Jackson M.D. Date of Service: 10/08/23 Procedure(s): XR abdomen 1V Accession Number(s): [id number] cc: Williams Jackson M.D.; JAYME PEREZ [address] [address] Patient Name: WILDA SEN MRN: [id number] date: 1945 Sex: F Assigned Patient Location: [facility] Current Patient Location: Accession/Order Number: [id number] Exam Date: 10/08/2023 10:37 Report Date: 10/09/2023 06:22 At the request of: WILLIAMS JACKSON Procedure: XR abdomen 1V EXAMINATION: XR abdomen 1V HISTORY: Kidney Stone COMPARISON: XR abdomen 01/31/2023, CT abdomen pelvis 08/12/2023 FINDINGS: KIDNEY/URETER - RIGHT: A few small stones projecting over kidney. KIDNEY/URETER - LEFT: A few small stones projecting over kidney. PELVIS: Numerous pelvic calcifications; grossly stable favoring phleboliths. BOWEL: No abnormal dilation or deviation. BONES: No acute abnormality. OTHER: Negative. No abnormal gaseous collections. XR/XR abdomen 1V IMPRESSION: 1. Bilateral nephrolithiasis. 2. Numerous pelvic calcifications without a convincing distal ureteral stone. If there remains clinical concern follow-up with CT abdomen pelvis. Electronically authenticated by: VARGHESE GARAY Date: 10/09/2023 06:22 Dictated By: Varghese Garay M.D. Signed By: 10/09/23624 DD/ 1 TD/TT: Gripper Attacher: Procedure Note Radiology, Radiologist, MD - 10/09/2023 [place] [address] XRay Report Signed Patient: WILDA SEN R#: [id number] : 1945cct:[id number] Age/Sex: 78 / FADM Date: 10/08/23 Loc: [facility] Attending Dr: Williams Jackson M.D. Ordering Physician: Williams Jackson M.D. Date of Service: 10/08/23 Procedure(s): XR abdomen 1V Accession Number(s): [id number] cc: Williams Jackson M.D.; JAYME PEREZ [address] [address] Patient Name: WILDA SEN MRN: [id number] date: 1945 Sex: F Assigned Patient Location: [facility] Current Patient Location: Accession/Order Number: [id number] Exam Date: 10/08/2023 10:37 Report Date: 10/09/2023 06:22 At the request of: WILLIAMS JACKSON Procedure: XR abdomen 1V EXAMINATION: XR abdomen 1V HISTORY: Kidney Stone COMPARISON: XR abdomen 01/31/2023, CT abdomen pelvis 08/12/2023 FINDINGS: KIDNEY/URETER - RIGHT: A few small stones projecting over kidney. KIDNEY/URETER - LEFT: A few small stones projecting over kidney. PELVIS: Numerous pelvic calcifications; grossly stable favoringphleboliths. BOWEL: No abnormal dilation or deviation. BONES: No acute abnormality. OTHER: Negative. No abnormal gaseous collections. XR/XR abdomen 1V IMPRESSION: 1. Bilateral nephrolithiasis. 2. Numerous pelvic calcifications without a convincing distal ureteralstone. If there remains clinical concern follow-up with CT abdomen pelvis. Electronically authenticated by: VARGHESE GARAY Date: 10/09/2023 06:22 Dictated By: Varghese Garay M.D. Signed By:10/09/23624 DD/ 1 TD/TT: Gripper Attacher: us Generic External Data Provider [facility] Final Result documented in this encounter Visit Diagnoses Not on filedocumented in this encounter Additional Health Concerns Assessment Noted Time PHQ-9 Depression Total Score: 7 05/22/20 23 2:00 PM EST documented as of this encounter Care Teams Ground Defence Officer Relationship Specialty Start Date End Date Jayme Perez MD 112 [facility] 100 [place] [address] PCP - General Family Medicine 11/25/22 Jayme Perez MD 112 [facility] [address] [place] [address] PCP - ACO Reach 12/05/22 Mick Farmer DO [address] [place] [address] Referring Physician Ophthalmology 08/21/23 Rneato Santacruz MD [address] [place] [address] Referring Physician Urology 08/21/23 Chuy Wood MD [address] [facility] Professional building [address] [place] [phone] Referring Physician Rheumatology 08/21/23 documented as of this encounter
--- OUTSIDE RECORDS SUMMARY | 2025-01-06 11:10 | XMS_ITS | Encounter Summary ---
Author Organization [facility] Address [address] [place] [address] Care Team Providers Care Circus Artist Name Role Phone Jayme Parham MD Primary Care Provider [phone] Jayme Parham MD Unavailable [phone] Mick Farmer DO Unavailable [phone] Renato Santacruz MD Unavailable [phone] Chuy Wood MD Unavailable [phone] Encounter Details Date Type Department Care Team (Late st Contact Info) Description 09/03/2023 Orders Only [facility] FM [address] [place] [address] Jayme Parham MD 112 [facility] 100 [place] [address] Social History Tobacco Use Types [...] often do you attend chur ch or sikhism services? Never 12/11/2022 Active Member of Clubs [...] Recorded Patient Health Questionnaire-2 Score 0 02/06/2023 [facility] ional Health - Occupational Stress [...] No 12/11/2022 Housing Stability Vital Sign Answer Tsefan e [...] place to sleep or slept in a alf (including now)? No 12/11/2022 Education Answer Date [...] [address] [place] [address] Jayme Parham MD [address] [place] [address] (Fax) 01/07/2025 12:00 PM EDT Treatment [facility] [address] [place] [address] Clara Whitten PTA 01/10/2025 11:00 AM EDT Treatment [facility] PT [address] [place] [address] Joselyn Narvaez, PT 02/02/2025 1:30 PM EDT Office Visit [facility] [address] [place] [address] Mick Farmer DO [address] [place] [address] documented as of this encounter Visit Diagnoses Not on filedocumented in this encounter Additional Health Concerns Assessment Noted Time PHQ-9 Depression Total Score: 7 05/22/20 23 2:00 PM EST documented as of this encounter Care Teams Circus Artist Relationship Specialty Start Date End Date Jayme Parham MD [address] [place] [address] PCP - General Family Medicine 11/25/22 Jayme Parham MD [address] [facility] [address] [place] [address] PCP - ACO Reach 12/05/22 Mick Farmer DO [address] [place] [address] Referring Physician Ophthalmology 08/21/23 Renato Santacruz MD [address] [place] [address] Referring Physician Urology 08/21/23 Chuy Wood MD [address] [facility] Professional building [address] [place] [phone] Referring Physician Rheumatology 08/21/23 documented as of this encounter
--- OUTSIDE RECORDS SUMMARY | 2025-01-06 11:10 | XMS_ITS | Encounter Summary ---
Author Organization [facility] Address [address] [place] [address] Care Team Providers Care Store Cashier Name Role Phone Jayme Parham MD Primary Care Provider [phone] Jayme Parham MD Unavailable [phone] Mick Farmer DO Unavailable [phone] Renato Santacruz MD Unavailable [phone] Chuy Wood MD Unavailable [phone] Encounter Details Date Type Department Care Team (Late st Contact Info) Description 08/14/2023 Abstract [facility] [address] [place] [address] Renato Santacruz MD [address] [place] [address] Social History Tobacco Use Types Packs/Day Years [...] often do you attend chur ch or taoism services? Never 12/11/2022 Active Member of Clubs [...] Recorded Patient Health Questionnaire-2 Score 0 02/06/2023 [facility] Occup[facility] ional [facility] - Occupational [...] place to sleep or slept in a chcf (including now)? No 12/11/2022 Education Answer Date [...] FM [address] [place] [address] Jayme Parham MD [address] [place] [address] (Fax) 01/07/2025 12:00 PM EDT Treatment [facility] [address] [place] [address] Clara Whitten, CARA 01/10/2025 11:00 AM EDT Treatment [facility] [address] [place] [address] Joselyn Narvaez, PT 02/02/2025 1:30 PM EDT Office Visit [facility] [address] [place] [address] Mick Farmer DO [address] [place] [address] documented as of this encounter Visit Diagnoses Not on filedocumented in this encounter Additional Health Concerns Assessment Noted Time PHQ-9 Depression Total Score: 7 05/22/20 23 2:00 PM EST documented as of this encounter Care Teams Store Cashier Relationship Specialty Start Date End Date Jayme Parham MD [address] [place] [address] PCP - General Family Medicine 11/25/22 Jayme Parham MD [address] [place] [address] PCP - ACO Reach 12/05/22 Mick Farmer DO [address] [place] [address] Referring Physician Ophthalmology 08/21/23 Renato Santacruz MD [address] [place] [address] Referring Physician Urology 08/21/23 Chuy Wood MD [address] Professional [address] [place] [phone] Referring Physician Rheumatology 08/21/23 documented as of this encounter
--- OUTSIDE RECORDS SUMMARY | 2025-01-06 11:10 | XMS_ITS | Encounter Summary ---
Author Organization [facility] Address [address] [place] [address] Care Team Providers Care Metal Model Builder Name Role Phone Jayme Parham MD Primary Care Provider [phone] Jayme Parham MD Unavailable [phone] Mick Farmer DO Unavailable [phone] Renato Santacruz MD Unavailable [phone] Chuy Wood MD Unavailable [phone] Encounter Details Date Type Department Care Team (Late st Contact Info) Description 11/17/2023 Orders Only [facility] FM [address] [place] [address] Jayme Parham MD 112 [facility] 100 [place] [address] Social History Tobacco Use Types [...] often do you attend chur ch or judaism services? Never 12/11/2022 Active Member of Clubs [...] Recorded Patient Health Questionnaire-2 Score 0 02/06/2023 [facility] - Occupational [...] [address] [place] [address] Jayme Parham MD [address] [place] [address] (Fax) 01/07/2025 12:00 PM EDT Treatment [facility] [address] [place] [address] Clara Whitten PTA 01/10/2025 11:00 AM EDT Treatment [facility] [address] [place] [address] Joselyn Narvaez, PT 02/02/2025 1:30 PM EDT Office Visit [facility] [address] [place] [address] Mick Farmer DO [address] [place] [address] documented as of this encounter Visit Diagnoses Not on filedocumented in this encounter Additional Health Concerns Assessment Noted Time PHQ-9 Depression Total Score: 7 05/22/20 23 2:00 PM EST documented as of this encounter Care Teams Metal Model Builder Relationship Specialty Start Date End Date Jayme Parham MD [address] [place] [address] PCP - General Family Medicine 11/25/22 Jayme Parham MD [address] [facility] [address] [place] [address] PCP - ACO Reach 12/05/22 Mick Farmer DO [address] [place] [address] Referring Physician Ophthalmology 08/21/23 Renato Santacruz MD [address] [place] [address] Referring Physician Urology 08/21/23 Chuy Wood MD [address] [facility] Professional building [address] [place] [phone] Referring Physician Rheumatology 08/21/23 documented as of this encounter
--- OUTSIDE RECORDS SUMMARY | 2025-01-06 11:10 | XMS_ITS | Encounter Summary ---
Author Organization [facility] Address [address] [place] [address] Care Team Providers Care Physician [facility] Name Role Phone Jayme Parham MD Primary Care Provider + [phone] Jayme Parham MD Unavailable [phone] Mick Farmer DO Unavailable [phone] Renato Santacruz MD Unavailable [phone] Chuy Wood MD Unavailable [phone] Encounter Details Date Type Department Care Team (Late st Contact Info) Description 01/21/2024 Orders Only [facility] FM [address] [place] [address] Chuy Wodo MD [address] [facility] Professional building [address] [place] [phone] Social History Tobacco Use Types Packs/Day Years [...] often do you attend chur ch or hoahaoism services? Never 12/11/2022 Active Member of Clubs [...] Recorded Patient Health Questionnaire-2 Score 0 02/06/2023 [facility] Occupat ional Health - Occupational [...] place to sleep or slept in a residential (including now)? No 12/11/2022 Education Answer Date [...] [address] [place] [address] Jayme Parham MD [address] [place] [address] (Fax) 01/07/2025 12:00 PM EDT Treatment [facility] [address] [place] [address] Clara Whitten PTA 01/10/2025 11:00 AM EDT Treatment [facility] [address] [facility] 170 [place] [address] NarvaezJoselyn, PT 02/02/2025 1:30 PM EDT Office Visit [facility] [address] [place] [address] Mick Farmer DO [address] [place] [address] documented as of this encounter Procedures Procedure Name Priority Date/Time Associated Diagnosis Comments DEXA EXAM Routine 01/14/2024 11:24 AM EDT documented in this encounter Results * DEXA EXAM (01/14/2024 11:24 AM EDT) Anatomical Region Laterality Modality Radiographic Yin ging us Chuy Wood MD IMG XR PROCEDURES Final Resu lt documented in this encounter Visit Diagnoses Not on filedocumented in this encounter Additional Health Concerns Assessment Noted Time PHQ-9 Depression Total Score: 7 05/22/20 2:00 PM EST documented as of this encounter Care Teams Physician [facility] Relationship Specialty Start Date End Date Jayme Parham MD 112 [facility] 100 [place] [address] PCP - General Family Medicine 11/25/22 Jayme Parham MD 112 [facility] 100 [place] [address] (Fax) PCP - ACO Reach 12/05/22 Mick Farmer DO [address] [place] [address] Referring Physician Ophthalmology 08/21/23 Renato Santacruz MD 290 [place] [address] Referring Physician Urology 08/21/23 Chuy Wood MD [address] [facility] Professional building [address] [place] [phone] Referring Physician Rheumatology 08/21/23 documented as of this encounter
--- OUTSIDE RECORDS SUMMARY | 2025-01-06 11:10 | XMS_ITS | Encounter Summary ---
Author Organization [facility] Address [address] [place] [address] Care Team Providers Care Credit Director Name Role Phone Jayme Parham MD Primary Care Provider [phone] Jayme Parham MD Unavailable [phone] Mick Farmer DO Unavailable [phone] Renato Santacruz MD Unavailable [phone] Chuy Wood MD Unavailable [phone] Encounter Details Date Type Department Care Team (Late st Contact Info) Description 08/12/2023 Abstract [facility] [address] [place] [address] Jayme Parahm MD 112 [facility] [address] [place] [address] Social History Tobacco Use Types [...] often do you attend chur ch or holiness services? Never 12/11/2022 Active Member of Clubs [...] Recorded Patient Health Questionnaire-2 Score 0 02/06/2023 [facility] of Occupat ional Health - Occupational [...] [address] [place] [address] Jayme Parham MD [address] [place] [address] 01/07/2025 12:00 PM EDT Treatment [facility] [address] [place] [address] Clara Whitten, CARA 01/10/2025 11:00 AM EDT Treatment [facility] [address] [place] [address] Joselyn Narvaez, PT 02/02/2025 1:30 PM EDT Office Visit [facility] [address] [place] [address] Mick Farmer DO [address] [place] [address] documented as of this encounter Visit Diagnoses Not on filedocumented in this encounter Additional Health Concerns Assessment Noted Time PHQ-9 Depression Total Score: 7 05/22/20 23 2:00 PM EST documented as of this encounter Care Teams Credit Director Relationship Specialty Start Date End Date Jayme Parham MD [address] [place] [address] PCP - General Family Medicine 11/25/22 Jayme Parham MD [address] [facility] [address] [place] [address] PCP - ACO Reach 12/05/22 Mick Farmer DO [address] [place] [address] Referring Physician Ophthalmology 08/21/23 Renato Santacruz MD [address] [place] [address] Referring Physician Urology 08/21/23 Chuy Wood MD [address] [facility] Professional building 1 [place] [phone] Referring Physician Rheumatology 08/21/23 documented as of this encounter
--- OUTSIDE RECORDS SUMMARY | 2025-01-06 11:10 | XMS_ITS | Encounter Summary ---
Author Organization [facility] Address [address] [place] [address] Care Team Providers Care Railroad Brake Repairer Name Role Phone Jayme Parham MD Primary Care Provider [phone] Jayme Parham MD Unavailable [phone] Mick Farmer DO Unavailable [phone] Renato Santacruz MD Unavailable [phone] Chuy Wood MD Unavailable [phone] Encounter Details Date Type Department Care Team (Late st Contact Info) Description 08/14/2023 Orders Only [facility] FM [address] [place] [address] Kimberly [place] Social History Tobacco Use Types Packs/Day Years [...] often do you attend chur ch or adventist services? Never 12/11/2022 Active Member of Clubs [...] Recorded Patient Health Questionnaire-2 Score 0 02/06/2023 [facility] Questionnaire Answer Date [...] [facility] FM [address] [facility] 100 [place] [address] Jayme Parham MD [address] [place] [address] 01/07/2025 12:00 PM EDT Treatment [facility] [address] [facility] [address] [place] [address] Clara Whitten, COUNTER HELP 01/10/2025 11:00 AM EDT Treatment [facility] [address] [facility] 170 [place] [address] Joselyn Narvaez, PT 02/02/2025 1:30 PM EDT Office Visit [facility] [address] [place] [address] Mick Farmer DO [address] [place] [address] documented as of this encounter Visit Diagnoses Not on filedocumented in this encounter Additional Health Concerns Assessment Noted Time PHQ-9 Depression Total Score: 7 05/22/20 23 2:00 PM EST documented as of this encounter Care Teams Railroad Brake Repairer Relationship Specialty Start Date End Date Jayme Parham MD [address] [place] [address] PCP - General Family Medicine 11/25/22 Jayme Parham MD [address] [place] [address] PCP - ACO Reach 12/05/22 Mick Farmer DO [address] [place] [address] Referring Physician Ophthalmology 08/21/23 Renato Santacruz MD [address] [place] [address] Referring Physician Urology 08/21/23 Chuy Wood MD [address] [facility] Professional building [address] [place] [phone] Referring Physician Rheumatology 08/21/23 documented as of this encounter
--- OUTSIDE RECORDS SUMMARY | 2025-01-06 11:11 | XMS_ITS | Encounter Summary ---
Author Organization [facility] Address [address] [place] [address] Care Team Providers Care Underwriter Mortgage Loan Name Role Phone Jayme Parham MD Primary Care Provider + [phone] Jayme Parham MD Unavailable [phone] Mick Farmer DO Unavailable [phone] Renato Santacruz MD Unavailable [phone] Chuy Wood MD Unavailable [phone] Encounter Details Date Type Department Care Team (Late st Contact Info) Description 12/23/2024 [employer] flowsheet [facility] [address] [place] [address] Joselyn Narvaez, PT Social History Tobacco Use Types Packs/Day Years [...] any clubs o r organizations such as jain groups, unions, fraternal or athletic groups, or [...] Recorded Patient Health Questionnaire-2 Score 0 11/04/2024 [facility] of Occupat ional Health - Occupational [...] place to sleep or slept in a [place] facility (including now)? No 12/11/2022 Housing Stability Vital Sign Answer Stefan e Recorded In the last 12 months, was t here a time when you were not able to pay the mortgage or rent on time? No 04/08/2024 In the past 12 months, how m any times have you moved where you were living? 0 04/08/2024 At any time in the past 12 m [facility], were you homeless or living in a [place] (including now)? No 04/08/2024 Education Answer Date [...] [facility] FM [address] [facility] 100 [place] [address] Jayme Parham MD [address] [place] [address] (Fax) 01/07/2025 12:00 PM EDT Treatment [facility] [address] [facility] [address] [place] [address] Clara Whitten, AUDIO TECHNICIAN 01/10/2025 11:00 AM EDT Treatment [facility] [address] [facility] [address] [place] [address] Brice Joselyn, PT 02/02/2025 1:30 PM EDT Office Visit [facility] [address] [place] [address] Mick Farmer DO [address] [place] [address] documented as of this encounter Visit Diagnoses Not on filedocumented in this encounter Additional Health Concerns Assessment Noted Time PHQ-9 Depression Total Score: 7 11/05/19 25 1:00 PM EDT documented as of this encounter Care Teams Underwriter Mortgage Loan Relationship Specialty Start Date End Date Jayme Parham MD [address] [facility] 100 [place] [address] (Fax) PCP - General Family Medicine 11/25/22 Jayme Parham MD [address] [place] [address] (Fax) PCP - ACO Reach 12/05/22 Mick Farmer DO [address] [place] [address] Referring Physician Ophthalmology 08/21/23 Renato Santacruz MD [address] [place] [address] Referring Physician Urology 08/21/23 Chuy Wood MD [address] [facility] Professional [address] [phone] Referring Physician Rheumatology 08/21/23 documented as of this encounter
--- OUTSIDE RECORDS SUMMARY | 2025-01-06 11:11 | XMS_ITS | Encounter Summary ---
Author Organization [facility] Address [address] [place] [address] Care Team Providers Care Forklift Wheel Loader Name Role Phone Jayme Parham MD Primary Care Provider [phone] Jayme Parham MD Unavailable [phone] Mick Farmer DO Unavailable [phone] Renato Santacruz MD Unavailable [phone] Chuy Wood MD Unavailable [phone] Encounter Details Date Type Department Care Team (Late st Contact Info) Description 01/27/2023 Orders Only [facility] FM [address] [place] [address] Jayme Parham MD 112 [facility] 100 [place] [address] Social History Tobacco Use Types Packs/Day Years Used Date Smoking Tobacco: Former Cigarettes Smokeless Tobacco: Never Alcohol Use Standard Drinks/Week [...] often do you attend chur ch or episcopalian services? Never 12/11/2022 Active Member of Clubs [...] Date Recorded Patient Health Questionnaire-2 Score 0 12/12/2022 [facility] Occupat ional Health - Occupational [...] PM EDT Sexual Orientation Not on file COVID-19 Exposure Response Date Recorded In the last 10 days, have yo u been in contact with someone who was confirmed or suspected to have Coronavirus/COVID-19? No / Unsure 01/06/2023 2:04 PM EDT documented as of this encounter Plan of Treatment Upcoming Encounters Date Type Department Care Team (Late st Contact Info) Description 01/06/2025 11:30 AM EDT Office Visit [facility] [address] [place] [address] Jayme Parham MD [address] [place] [address] (Fax) 01/07/2025 12:00 PM EDT Treatment [facility] [address] [place] [address] Clara Whitten, MEDICAL INSURANCE VERIFIER 01/10/2025 11:00 AM EDT Treatment [facility] PT [address] [facility] 170 [place] [address] Joselyn Narvaez, PT 02/02/2025 1:30 PM EDT Office Visit [facility] [address] [place] [address] Mick Farmer DO [address] [place] [address] documented as of this encounter Procedures Procedure Name Priority Date/Time Associated Diagnosis Comments PROTHROMBIN TIME-INR Routine 01/24/2023 3:18 PM EDT documented in this encounter Results * Protime-INR (01/24/2023 3:18 PM EDT) Blood Venous blood specimen / Unknown Jayme Parham MD LAB BLOOD ORDERABLES Final R esult documented in this encounter Visit Diagnoses Not on filedocumented in this encounter Care Teams Forklift Wheel Loader Relationship Specialty Start Date End Date Jayme Parham MD 112 [facility] 100 [place] [address] PCP - General Family Medicine 11/25/22 Jayme Parham MD [address] [facility] 100 [place] [address] PCP - ACO Reach 12/05/22 Mick Farmer DO [address] [place] [address] Referring Physician Ophthalmology 08/21/23 Renato Santacruz MD [address] [place] [address] Referring Physician Urology 08/21/23 Chuy Wood MD [address] Professional [address] [place] [phone] Referring Physician Rheumatology 08/21/23 documented as of this encounter
--- OUTSIDE RECORDS SUMMARY | 2025-01-06 11:11 | XMS_ITS | Encounter Summary ---
Author Organization [facility] Address [address] [place] [address] Care Team Providers Care Team Assistant Name Role Phone Jayme Parham MD Primary Care Provider + [phone] Jayme Parham MD Unavailable [phone] Mick Farmer DO Unavailable [phone] Renato Santacruz MD Unavailable [phone] Chuy Wood MD Unavailable [phone] Encounter Details Date Type Department Care Team (Late st Contact Info) Description 05/05/2024 Orders Only [facility] FM [address] [place] [address] Magalis [place], [place] Unexplained weight loss; Type 2 diabetes mellitus with stage 3a chronic kidney disease, without long-term current use of insulin (HCC); History of melanoma; Former smoker; Iron deficiency; Psoriatic arthropathy (HCC); Immunosuppressed status (HCC); Diverticulosis of large intestine without hemorrhage; History of pneumonectomy; assisted current use of anticoagulant; 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 (HCC); Medication monitoring encounter Social History Tobacco Use Types Packs/Day Years [...] week 04/08/2024 How often do you attend [facility] or adventism services? Never 04/08/2024 Do you belong to any clubs o r organizations such as sikhism groups, unions, fraternal or athletic groups, or [...] Recorded Patient Health Questionnaire-2 Score 0 02/06/2023 [facility] of Occupat ional Health - [...] any time in the past 12 m [facility], were you homeless or [...] [address] [place] [address] Jayme Parham MD [address] [place] [address] 01/07/2025 12:00 PM EDT Treatment [facility] [address] [place] [address] Miroslavauche Clara, MASTER MERCHANDISER 01/10/2025 11:00 AM EDT Treatment [facility] [address] [place] [address] Joselyn Narvaez, PT 02/02/2025 1:30 PM EDT Office Visit [facility] [address] [place] [address] Mick Farmer DO [address] [place] [address] documented as of this encounter Visit Diagnoses Diagnosis Unexplained weight loss Loss of weight Type 2 diabetes mellitus with stage 3a chronic kidney disease, without long-term current use of insulin (HCC) History of melanoma 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 Personal history of tobacco use, presenting hazards to health Iron deficiency 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) Psoriatic arthropathy Immunosuppressed status (HCC) Diverticulosis of large intestine without hemorrhage History of pneumonectomy 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, 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 (HCC) Atrial fibrillation Medication monitoring encounter Encounter for therapeutic drug monitoring documented in this encounter Additional Health Concerns Assessment Noted Time PHQ-9 Depression Total Score: 7 05/22/20 23 2:00 PM EST documented as of this encounter Care Teams Team Assistant Relationship Specialty Start Date End Date Jayme Parham MD [address] [place] [address] PCP - General Family Medicine 11/25/22 Jayme Parham MD [address] [place] [address] PCP - ACO Reach 12/05/22 Mick Farmer DO [address] [place] [address] Referring Physician Ophthalmology 08/21/23 Renato Santacruz MD [address] [place] [address] Referring Physician Urology 08/21/23 Chuy Wood MD [address] [facility] Professional building 1 [place] [address] Referring Physician Rheumatology 08/21/23 documented as of this encounter
--- OUTSIDE RECORDS SUMMARY | 2025-01-06 11:11 | XMS_ITS | Encounter Summary ---
Author Organization [facility] Address [address] [place] [address] Care Team Providers Care Culinary Assistant Name Role Phone Jayme Parham MD Primary Care Provider [phone] Jayme Parham MD Unavailable [phone] Mick Farmer DO Unavailable [phone] Renato Santacruz MD Unavailable [phone] Chuy Wood MD Unavailable [phone] Encounter Details Date Type Department Care Team (Late st Contact Info) Description 03/05/2023 Orders Only [facility] [address] [place] [address] Jayme Parham MD 112 [facility] 100 [place] [address] Social History Tobacco Use Types [...] often do you attend chur ch or anglican services? Never 12/11/2022 Active Member of Clubs [...] health care facility (including now)? No 12/11/2022 Education Answer Date [...] suspected to have Coronavirus/COVID-19? No / Unsure 02/06/2023 1:45 PM EDT documented as of this encounter Plan of Treatment Upcoming Encounters Date Type Department Care Team (Late st Contact Info) Description 01/06/2025 11:30 AM EDT Office Visit [facility] [address] [place] [address] Jayme Parham MD [address] [place] [address] (Fax) 01/07/2025 12:00 PM EDT Treatment [facility] PT [address] [place] [address] Clara Whitten, POULTRY HATCHERY MAN 01/10/2025 11:00 AM EDT Treatment [facility] PT [address] [place] [address] Joeslyn Narvaez, PT 02/02/2025 1:30 PM EDT Office Visit [facility] [address] [place] [address] Mick Farmer DO [address] [place] [address] documented as of this encounter Procedures Procedure Name Priority Date/Time Associated Diagnosis Comments PROTHROMBIN TIME-INR Routine 02/18/2023 10:07 AM EDT documented in this encounter Results * Protime-INR (02/18/2023 10:07 AM EDT) Blood Venous blood specimen / Unknown Jayme Parham MD LAB BLOOD ORDERABLES Edited Result - Final EXTERNAL LAB documented in this encounter Visit Diagnoses Not on filedocumented in this encounter Care Teams Culinary Assistant Relationship Specialty Start Date End Date Jayme Parham MD [address] [place] [address] PCP - General Family Medicine 11/25/22 Jayme Parham MD [address] [place] [address] PCP - ACO Reach 12/05/22 Mick Farmer DO [address] [place] [address] Referring Physician Ophthalmology 08/21/23 Renato Santacruz MD [address] [place] [address] Referring Physician Urology 08/21/23 Chuy Wood MD [address] [facility] Professional building [address] [place] [phone] Referring Physician Rheumatology 08/21/23 documented as of this encounter
--- OUTSIDE RECORDS SUMMARY | 2025-01-06 11:11 | XMS_ITS | Clinical Summary ---
Author Organization [facility] Address [address] [place] [address] Phone Care Team Providers Care Sanitarian Aide Name Role Phone Jayme Parham MD Primary Care Provider [phone] Social History Tobacco Use Types Packs/Day Years Used Date Smoking Tobacco: Never Assessed Comments Unknown Sex and Gender Information Value Date Recorded Sex Assigned at Not on file Legal Sex Female 1:42 PM EST Gender Identity Not on file Sexual Orientation Not on file Plan of Treatment Not on file Care Teams Sanitarian Aide Relationship Specialty Start Date End Date Jayme Parham MD [address] [place] [phone] PCP - General 11/21/14
--- OUTSIDE RECORDS SUMMARY | 2025-01-06 11:11 | XMS_ITS | Encounter Summary ---
Author Organization [facility] Address [address] [place] [address] Care Team Providers Care Sock Examiner Name Role Phone Jayme Parham MD Primary Care Provider [phone] Jayme Parham MD Unavailable [phone] Mick Farmer DO Unavailable [phone] Renato Santacruz MD Unavailable [phone] Chuy Wood MD Unavailable [phone] Encounter Details Date Type Department Care Team (Late st Contact Info) Description 03/19/2023 Abstract [facility] [address] [place] [address] Jayme Parham MD [address] [facility] [address] [place] [address] Social History Tobacco Use Types [...] often do you attend chur ch or latter day services? Never 12/11/2022 Active Member of Clubs [...] Recorded Patient Health Questionnaire-2 Score 0 02/06/2023 [facility] - [...] in a jail (including now)? No 12/11/2022 Education Answer Date [...] FM [address] [place] [address] Jayme Parham MD [address] [place] [address] (Fax) 01/07/2025 12:00 PM EDT Treatment [facility] [address] [place] [address] Clara Whitten, CARA 01/10/2025 11:00 AM EDT Treatment [facility] [address] [place] [address] Joselyn Narvaez, PT 02/02/2025 1:30 PM EDT Office Visit [facility] [address] [place] [address] Mick Farmer DO [address] [place] [address] documented as of this encounter Visit Diagnoses Not on filedocumented in this encounter Care Teams Sock Examiner Relationship Specialty Start Date End Date Jayme Parham MD [address] [place] [address] PCP - General Family Medicine 11/25/22 Jayme Parham MD [address] [place] [address] PCP - ACO Reach 12/05/22 Mick Farmer DO [address] [place] [address] Referring Physician Ophthalmology 08/21/23 Renato Santacruz MD [address] [place] [address] Referring Physician Urology 08/21/23 Chuy Wood MD [address] Professional building [address] [place] [address] Referring Physician Rheumatology 08/21/23 documented as of this encounter
--- OUTSIDE RECORDS SUMMARY | 2025-01-06 11:11 | XMS_ITS | Encounter Summary ---
Author Organization [facility] Address [address] [place] [address] Care Team Providers Care Straightening Machine Feeder Name Role Phone Jayme Perez MD Primary Care Provider [phone] Jayme Perez MD Unavailable [phone] Mick Farmer DO Unavailable [phone] Renato Santacruz MD Unavailable [phone] Chuy Wood MD Unavailable [phone] Encounter Details Date Type Department Care Team (Late st Contact Info) Description 05/15/2024 Clinisync Result Encounter [facility] External Department Unsolicited Jayme Perez MD 112 [facility] 100 [place] [address] Social History Tobacco Use Types [...] ways by your partner or ex-partner? No 05 / Within the last year, have y ou [...] How often do you attend chur or yazidi services? Never 04/08/2024 Do you belong to any clubs o r organizations such as mandaen groups, unions, fraternal or athletic groups, or [...] Recorded Patient Health Questionnaire-2 Score 0 02/06/2023 [facility] Occupat ional [facility] - Occupational Stress [...] place to sleep or slept in a nursing home (including now)? No 12/11/2022 Housing Stability [...] time in the past 12 m [facility], were you homeless or living in a nursing home (including now)? No 04/08/2024 Education Answer [...] [address] [place] [address] Jayme Perez MD [address] [place] [address] 01/07/2025 12:00 PM EDT Treatment [facility] [address] [place] [address] Isaiasnehal Clara, RELIEF PILOT 01/10/2025 11:00 AM EDT Treatment [facility] [address] [place] [address] Joselyn Narvaez, PT 02/02/2025 1:30 PM EDT Office Visit [facility] [address] [place] [address] Mick Farmer, DO [address] [place] [address] documented as of this encounter Procedures Procedure Name Priority Date/Time Associated Diagnosis Comments CT CHEST W CONTRAST 05/15/2024 7 :23 AM EDT documented in this encounter Results * CT CHEST W CONTRAST (05/15/2024 7:23 AM EDT) Anatomical Region Laterality Modality Other 05/15/2024 7:23 AM EDT Narrative 05/15/2024 7:26 AM EDT [address] [address] [address] Scan Report Signed Patient: WILDA SEN MR#: [id number] : 1945 Acct:[id number] Age/Sex: 79 / F ADM Date: 05/14/24 Loc: CT Attending Dr: JAYME PEREZ Ordering Physician: JAYME PEREZ Date of Service: 05/14/24 Procedure(s): CT chest w con Accession Number(s): [id number] cc: JAYME PEREZ [facility] [place] [id number] Patient Name: WILDA SEN MRN: [facility]:[id number] date: 1945 Sex: F Assigned Patient Location: CT Current Patient Location: Accession/Order Number: [id number] Exam Date: 05/14/2024 09:00 Report Date: 05/15/2024 07:23 At the request of: JAYME PEREZ Procedure: CT chest w con EXAMINATION: CT chest w con HISTORY: Unexplained Weight Loss, Former Smoker, Immunosuppressed [ COMPARISON: CT chest 09/21/2019 TECHNIQUE: Multi-planar CT images were obtained without and/or with IV contrast as indicated by examination type. Axial, Coronal, and Sagittal images. Dose reduction techniques were achieved by using automated exposure control and/or adjustment of mA and/or kV according to patient size and/or use of iterative reconstruction technique. FINDINGS: LUNGS: Stable surgical changes within right lung base and mild peripheral scarring. No acute infiltrates or significant chronic interstitial changes or emphysematous changes. PLEURA: No mass, effusion, or pneumothorax. VASCULATURE: No abnormality. VICTORINO: No mass or adenopathy. MEDIASTINUM: No mass or adenopathy. CARDIAC: No enlargement or pericardial thickening.. Coronary artery calcifications: Marked AORTA: No aneurysm or dissection. CHEST WALL: No mass or axillary adenopathy. BONES: Stable postsurgical/traumatic changes of right ribs. No bone lesion or fracture. LIMITED ABDOMEN: No suspicious findings Limited images of the upper abdomen. OTHER: Negative. CT/CT chest w con IMPRESSION: 1. No new or suspicious findings to account for patient's symptoms. 2. Stable surgical changes of right lung and ribs. 3. Marked atherosclerotic coronary artery disease. Electronically authenticated by: VARGHESE GARAY Date: 05/15/2024 07:23 Dictated By: Varghese Garay M.D. Signed By: 05/15/24725 DD/ 2 TD/TT: Urban Anthropologist: Procedure Note Radiology, Radiologist, - 05/15/20[address] [place] [id number] [place] Scan Report Signed Patient: WILDA SEN JMR#: [id number] : 1945cct:[id number] Age/Sex: 79 / FADM Date: 05/14/24 Loc: CT Attending Dr: JAYME PEREZ Ordering Physician: JAYME PEREZ Date of Service: 05/14/24 Procedure(s): CT chest w con Accession Number(s): [id number] cc: JAYME PEREZ [place] [address] [place] [address] Patient Name: WILDA SEN MRN: [facility]:[id number] date: 1945 Sex: F Assigned Patient Location: CT Current Patient Location: Accession/Order Number: [id number] Exam Date: 05/14/2024 09:00 Report Date: 05/15/2024 07:23 At the request of: JAYME PEREZ Procedure: CT chest w con EXAMINATION: CT chest w con HISTORY: Unexplained Weight Loss, Former Smoker, Immunosuppressed [ COMPARISON: CT chest 09/21/2019 TECHNIQUE: Multi-planar CT images were obtained without and/or with IV contrast as indicated by examination type. Axial, Coronal, and Sagittal images.Dose reduction techniques were achieved by using automated exposure controland/or adjustment of mA and/or kV according to patient size and/or use ofiterative reconstruction technique. FINDINGS: LUNGS: Stable surgical changes within right lung base and mild peripheral scarring. No acute infiltrates or significant chronic interstitial changesor emphysematous changes. PLEURA: No mass, effusion, or pneumothorax. VASCULATURE: No abnormality. VICTORINO: No mass or adenopathy. MEDIASTINUM: No mass or adenopathy. CARDIAC: No enlargement or pericardial thickening.. Coronary artery calcifications: Marked AORTA: No aneurysm or dissection. CHEST WALL: No mass or axillary adenopathy. BONES: Stable postsurgical/traumatic changes of right ribs. No bone lesionor fracture. LIMITED ABDOMEN: No suspicious findings Limited images of the upperabdomen. OTHER: Negative. CT/CT chest w con IMPRESSION: 1. No new or suspicious findings to account for patient's symptoms. 2. Stable surgical changes of right lung and ribs. 3. Marked atherosclerotic coronary artery disease. Electronically authenticated by: VARGHESE GARAY Date: 05/15/2024 07:23 Dictated By: Varghese Garay M.D. Signed By:05/15/24725 DD/ 2 TD/TT: Urban Anthropologist: Jayme Perez MD [facility] Final Resu lt documented in this encounter Visit Diagnoses Not on filedocumented in this encounter Additional Health Concerns Assessment Noted Time PHQ-9 Depression Total Score: 7 05/22/20 23 2:00 PM EST documented as of this encounter Care Teams Straightening Machine Feeder Relationship Specialty Start Date End Date Jayme Perez MD [address] [facility] [address] [place] [address] PCP - General Family Medicine 11/25/22 Jayme Perez MD [address] [address] PCP - ACO Reach 12/05/22 Mick Farmer DO [address] [place] [address] Referring Physician Ophthalmology 08/21/23 Renato Santacruz MD [address] [place] [address] Referring Physician Urology 08/21/23 Chuy Wood MD [address] [facility] Professional building [address] [place] [phone] Referring Physician Rheumatology 08/21/23 documented as of this encounter
--- OUTSIDE RECORDS SUMMARY | 2025-01-06 11:11 | XMS_ITS | Encounter Summary ---
Author Organization [facility] Address [address] [place] [address] Care Team Providers Care Asphalt Distributor Tender Name Role Phone Jayme Parham MD Primary Care Provider Jayme Parham MD Unavailable [phone] Mick Farmer DO Unavailable [phone] Renato Santacruz MD Unavailable [phone] Chuy Wood MD Unavailable [phone] Encounter Details Date Type Department Care Team (Late st Contact Info) Description 01/23/2023 Abstract [facility] [address] [place] [address] Jayme Parham MD 112 [facility] [address] [place] [address] Social History Tobacco Use Types Packs/Day Years Used Date Smoking Tobacco: Former Cigarettes Smokeless Tobacco: Never Tobacco Cessation:Counseling Given: Not Answered Alcohol Use Standard Drinks/Week Comments Not Currently [...] often do you attend chur ch or confucianism services? Never 12/11/2022 Active Member of Clubs [...] Recorded Patient Health Questionnaire-2 Score 0 12/12/2022 [facility]at ional Health - Occupational [...] place to sleep or slept in a long term (including now)? No 12/11/2022 Education Answer Date [...] [address] [place] [address] Jayme Parham MD 112 [facility] [address] [place] [address] (Fax) 01/07/2025 12:00 PM EDT Treatment [facility] [address] [place] [address] Clara Whitten, VISUAL MERCHANDISING ASSISTANT 01/10/2025 11:00 AM EDT Treatment [facility] PT [address] [place] [address] Joselyn Narvaez, PT 02/02/2025 1:30 PM EDT Office Visit [facility] [address] [place] [address] Mick Farmer DO [address] [place] [address] documented as of this encounter Visit Diagnoses Not on filedocumented in this encounter Care Teams Asphalt Distributor Tender Relationship Specialty Start Date End Date Jayme Parham MD [address] [place] [address] PCP - General Family Medicine 11/25/22 Jayme Parham MD [address] [place] [address] PCP - ACO Reach 12/05/22 Mick Farmer DO [address] [place] [address] Referring Physician Ophthalmology 08/21/23 Renato Santacruz MD [address] [place] [address] Referring Physician Urology 08/21/23 Chuy Wood MD [address] Professional [address] [place] [address] Referring Physician Rheumatology 08/21/23 documented as of this encounter
--- OUTSIDE RECORDS SUMMARY | 2025-01-06 11:11 | XMS_ITS | Encounter Summary ---
Author Organization [facility] Address [address] [place] [address] Care Team Providers Care Brick Loader Name Role Phone Jayme Perez MD Primary Care Provider [phone] Jayme Perez MD Unavailable [phone] Mick Farmer DO Unavailable [phone] Renato Santacruz MD Unavailable [phone] Chuy Wood MD Unavailable [phone] Encounter Details Date Type Department Care Team (Late st Contact Info) Description 07/05/2024 Clinisync Result Encounter [facility] External Department Unsolicited [...] often do you attend chur ch or methodist services? Never 04/08/2024 Do you belong to any clubs o r organizations such as druze groups, unions, fraternal or athletic groups, or [...] Recorded Patient Health Questionnaire-2 Score 0 02/06/2023 [facility] - Occupational [...] any time in the past 12 m [facility], were you homeless or living in [...] 01/06/2025 11:30 AM EDT Office Visit [facility] [address] [facility] 100 [place] [address] Jayme Perez MD [address] [place] [address] 01/07/2025 12:00 PM EDT Treatment [facility] PT [address] [place] [address] Clara Whitten, EQUITY RESEARCH ASSOCIATE 01/10/2025 11:00 AM EDT Treatment [facility] PT [address] [place] [address] oJselyn Narvaez, PT 02/02/2025 1:30 PM EDT Office Visit [facility] [address] [place] [address] Mick Farmer, DO [address] [place] [address] documented as of this encounter Procedures Procedure Name Priority Date/Time Associated Diagnosis Comments XR ABDOMEN 1V 07/05/2024 11:19 PM EST documented in this encounter Results * XR ABDOMEN 1V (07/05/2024 11:19 PM EST) Anatomical Region Laterality Modality Other 07/05/2024 11:1 9 PM EST Narrative 07/05/2024 11:22 PM EST The [address] [address] XRay Report Signed Patient: WILDA SEN MR#: [id number] : 1945 Acct:[id number] Age/Sex: 79 / F ADM Date: 07/05/24 Loc: RAD Attending Dr: Williams Jackson M.D. Ordering Physician: Williams Jackson M.D. Date of Service: 07/05/24 Procedure(s): XR abdomen 1V Accession Number(s): [id number] cc: Williams Jackson M.D.; JAYME PEREZ [facility] [place] [id number] Patient Name: WILDA SEN MRN: [id number]:[id number] date: 1945 Sex: F Assigned Patient Location: RAD Current Patient Location: RAD Accession/Order Number: [id number] Exam Date: 07/05/2024 09:18 Report Date: 07/05/2024 23:19 At the request of: WILLIAMS JACKSON Procedure: XR abdomen 1V EXAMINATION: XR abdomen 1V HISTORY: Kidney Stone COMPARISON: XR abdomen 10/08/2023 FINDINGS: KIDNEY/URETER - RIGHT: No visible renal or ureteral calcifications. KIDNEY/URETER - LEFT: No visible renal or ureteral calcifications. PELVIS: No visible ureteral stones. Numerous pelvic calcifications bilaterally suspected to represent phleboliths. BOWEL: No abnormal dilation or deviation. BONES: No acute abnormality. OTHER: Negative. No abnormal gaseous collections. XR/XR abdomen 1V IMPRESSION: 1. No convincing kidney stones. 2. Numerous pelvic calcifications. A distal ureteral stone cannot be excluded on abdominal radiographs. Electronically authenticated by: VARGHESE GARAY Date: 07/05/2024 23:19 Dictated By: Varghese Garay M.D. Signed By: 07/05/24 232 DD/ 231 TD/TT: Strapping Machine Operator: Procedure Note Radiology, Radiologist, MD - 07/05/2024 [place] [address] XRay Report Signed Patient: WILDA SEN R#: [id number] : 1945cct:[id number] Age/Sex: 79 / FADM Date: 07/05/24 Loc: RAD Attending Dr: Williams Jackson M.D. Ordering Physician: Williams Jackson M.D. Date of Service: 07/05/24 Procedure(s): XR abdomen 1V Accession Number(s): [id number] cc: Williams Jackson M.D.; JAYME PEREZ [facility] [place] [id number] Patient Name: WILDA SEN MRN: [id number] date: 1945 Sex: F Assigned Patient Location: RAD Current Patient Location: RAD Accession/Order Number: [id number] Exam Date: 07/05/2024 09:18 Report Date: 07/05/2024 23:19 At the request of: WILLIAMS JACKSON Procedure: XR abdomen 1V EXAMINATION: XR abdomen 1V HISTORY: Kidney Stone COMPARISON: XR abdomen 10/08/2023 FINDINGS: KIDNEY/URETER - RIGHT: No visible renal or ureteral calcifications. KIDNEY/URETER - LEFT: No visible renal or ureteral calcifications. PELVIS: No visible ureteral stones. Numerous pelvic calcificationsbilaterally suspected to represent phleboliths. BOWEL: No abnormal dilation or deviation. BONES: No acute abnormality. OTHER: Negative. No abnormal gaseous collections. XR/XR abdomen 1V IMPRESSION: 1. No convincing kidney stones. 2. Numerous pelvic calcifications. A distal ureteral stone cannot beexcluded on abdominal radiographs. Electronically authenticated by: VARGHESE GARAY Date: 07/05/2024 23:19 Dictated By: Varghese Garay M.D. Signed By:07/05/242321 DD/ 18 TD/TT: Strapping Machine Operator: Generic External Data Provider [facility] Final Result documented in this encounter Visit Diagnoses Not on filedocumented in this encounter Additional Health Concerns Assessment Noted Time PHQ-9 Depression Total Score: 7 05/22/20 23 2:00 PM EST documented as of this encounter Care Teams Brick Loader Relationship Specialty Start Date End Date Jayme Perez MD 112 [facility] 100 [place] [address] PCP - General Family Medicine 11/25/22 Jayme Perez MD 112 [facility] 100 [place] [address] PCP - ACO Reach 12/05/22 Mick Farmer DO [address] [place] [address] Referring Physician Ophthalmology 08/21/23 Renato Santacruz MD [address] [place] [address] Referring Physician Urology 08/21/23 Chuy Wood MD [address] [facility] Professional building [address] [place] [phone] Referring Physician Rheumatology 08/21/23 documented as of this encounter
--- OUTSIDE RECORDS SUMMARY | 2025-01-06 11:11 | XMS_ITS | Encounter Summary ---
Author Organization [facility] Address [address] [place] [address] Care Team Providers Care Ruffling Machine Operator Name Role Phone Jayme Parham MD Primary Care Provider [phone] Jayme Parham MD Unavailable [phone] Mick Farmer DO Unavailable [phone] Renato Santacruz MD Unavailable [phone] Chuy Wood MD Unavailable [phone] Encounter Details Date Type Department Care Team (Late st Contact Info) Description 07/28/2023 Orders Only [facility] [address] [place] [id number] Kimberly, [place], [place] Social History Tobacco Use Types Packs/Day Years [...] often do you attend chur ch or worship services? Never 12/11/2022 Active Member of Clubs [...] 0 02/06/2023 [facility] Questionnaire Answer Date [...] place to sleep or slept in a prison (including now)? No 12/11/2022 Education Answer Date [...] [facility] [address] [facility] 100 [place] [address] Jayme Parham MD [address] [place] [address] 01/07/2025 12:00 PM EDT Treatment [facility] [address] [facility] [address] [place] [address] Clara Whitten, CHAPERONE 01/10/2025 11:00 AM EDT Treatment [facility] [address] [facility] [address] [place] [address] Joselyn Narvaez, PT 02/02/2025 1:30 PM EDT Office Visit [facility] [address] [place] [address] iMck Farmer DO [address] [place] [address] documented as of this encounter Visit Diagnoses Not on filedocumented in this encounter Additional Health Concerns Assessment Noted Time PHQ-9 Depression Total Score: 7 05/22/20 23 2:00 PM EST documented as of this encounter Care Teams Ruffling Machine Operator Relationship Specialty Start Date End Date Jayme Parham MD [address] [place] [address] PCP - General Family Medicine 11/25/22 Jayme Parham MD [address] [place] [address] (Fax) PCP - ACO Reach 12/05/22 Mick Farmer DO [address] [place] [address] Referring Physician Ophthalmology 08/21/23 Renato Santacruz MD [address] [place] [address] Referring Physician Urology 08/21/23 Chuy Wood MD [address] [facility] Professional building 1 [place] [phone] Referring Physician Rheumatology 08/21/23 documented as of this encounter
--- OUTSIDE RECORDS SUMMARY | 2025-01-06 11:11 | XMS_ITS | Encounter Summary ---
Author Organization [facility] Address [address] [place] [address] Care Team Providers Care Certifier Name Role Phone Jayme Parham MD Primary Care Provider [phone] Jayme Parham MD Unavailable [phone] Mick Farmer DO Unavailable [phone] Renato Santacruz MD Unavailable [phone] Chuy Wood MD Unavailable [phone] Encounter Details Date Type Department Care Team (Late st Contact Info) Description 12/23/2022 Orders Only [facility] [address] [place] [address] Jayme Parham MD 112 [facility] 100 [place] [address] Social History Tobacco Use [...] often do you attend chur ch or orthodoxy services? Never 12/11/2022 Active Member of Clubs [...] Recorded Patient Health Questionnaire-2 Score 0 12/12/2022 [facility] of Occupat ional Health - Occupational [...] in a long-term (including now)? No 12/11/2022 Comments No Sex and Gender Information Value [...] suspected to have Coronavirus/COVID-19? No / Unsure 12/11/2022 2:47 PM EDT documented as of this encounter Plan of Treatment Upcoming Encounters Date Type Department Care Team (Late st Contact Info) Description 01/06/2025 11:30 AM EDT Office Visit [facility] [address] [place] [phone] Jayme Parham MD [address] [place] [address] (Fax) 01/07/2025 12:00 PM EDT Treatment [facility] [address] [place] [address] Clara Whitten PTA 01/10/2025 11:00 AM EDT Treatment [facility] [address] [place] [address] Brice Joselyn, PT 02/02/2025 1:30 PM EDT Office Visit [facility] [address] [place] [address] Mick Farmer DO [address] [place] [address] documented as of this encounter Procedures Procedure Name Priority Date/Time Associated Diagnosis Comments PROTHROMBIN TIME-INR Routine 12/16/2022 12:55 PM EDT documented in this encounter Results * Protime-INR (12/16/2022 12:55 PM EDT) Blood Venous blood specimen / Unknown Jayme Parham MD LAB BLOOD ORDERABLES Final R esult documented in this encounter Visit Diagnoses Not on filedocumented in this encounter Care Teams Certifier Relationship Specialty Start Date End Date Jayme Parham MD 112 [facility] 100 [place] [address] (Fax) PCP - General Family Medicine 11/25/22 Jayme Parham MD 112 [facility] 100 [place] [address] (Fax) PCP - ACO Reach 12/05/22 Mick Farmer DO [address] [place] [address] Referring Physician Ophthalmology 08/21/23 Renato Santacruz MD [address] [place] [address] Referring Physician Urology 08/21/23 Chuy Wood MD [address] Professional building [address] [place] [phone] Referring Physician Rheumatology 08/21/23 documented as of this encounter
--- OUTSIDE RECORDS SUMMARY | 2025-01-06 11:11 | XMS_ITS | Encounter Summary ---
Author Organization [facility] Address [address] [place] [address] Care Team Providers Care Freelance Art Director Name Role Phone Jayme Parham MD Primary Care Provider [phone] Jayme Parham MD Unavailable [phone] Mick Farmer DO Unavailable [phone] Renato Santacruz MD Unavailable [phone] Chuy Wood MD Unavailable [phone] Encounter Details Date Type Department Care Team (Late st Contact Info) Description 12/23/2024 Plan of Care Documentation [facility] [address] [place] [address] Social History Tobacco Use Types Packs/Day Years [...] often do you attend chur ch or faith services? Never 04/08/2024 Do you belong to any clubs o r organizations such as caodaism groups, unions, fraternal or athletic groups, or [...] Recorded Patient Health Questionnaire-2 Score 0 11/04/2024 [facility] [place] of Occupat ional Health - Occupational Stress [...] place to sleep or slept in a retirement (including now)? No 12/11/2022 Housing Stability Vital Sign Answer Stefan e Recorded In the last 12 months, was t here a time when you were not able to pay the mortgage or rent on time? No 04/08/2024 In the past 12 months, how m any times have you moved where you were living? 0 04/08/2024 At any time in the past 12 m [facility], were you homeless or living in a retirement (including now)? No 04/08/2024 Education Answer Date [...] [facility] [address] [facility] 100 [place] [address] Jayme Parham MD 112 [facility] 100 [place] [address] (Fax) 01/07/2025 12:00 PM EDT Treatment [facility] [address] [facility] 170 [place] [address] Clara Whitten, DIGITAL ACCOUNT SUPERVISOR 01/10/2025 11:00 AM EDT Treatment [facility] PT [address] [facility] [address] [place] [address] Joselyn Narvaez, PT 02/02/2025 1:30 PM EDT Office Visit [facility] [address] [place] [address] Mick Farmer DO [address] [place] [address] documented as of this encounter Visit Diagnoses Not on filedocumented in this encounter Additional Health Concerns Assessment Noted Time PHQ-9 Depression Total Score: 7 11/05/19 25 1:00 PM EDT documented as of this encounter Care Teams Freelance Art Director Relationship Specialty Start Date End Date Jayme Parham MD [address] [address] (Fax) PCP - General Family Medicine 11/25/22 Jayme Parham MD [address] [address] (Fax) PCP - ACO Reach 12/05/22 Mick Farmer DO [address] [place] [address] Referring Physician Ophthalmology 08/21/23 Reanto Santacruz MD [address] [place] [address] Referring Physician Urology 08/21/23 Chuy Wood MD [address] [facility] Professional building [address] [place] [phone] Referring Physician Rheumatology 08/21/23 documented as of this encounter
--- OUTSIDE RECORDS SUMMARY | 2025-01-06 11:11 | XMS_ITS | Encounter Summary ---
Author Organization [facility] Address [address] [place] [address] Care Team Providers Care Custodial Supervisor Name Role Phone Jayme Parham MD Primary Care Provider [phone] Jayme Parham MD Unavailable [phone] Mick Farmer DO Unavailable [phone] Renato Santacruz MD Unavailable [phone] Chuy Wood MD Unavailable [phone] Encounter Details Date Type Department Care Team (Late st Contact Info) Description 07/16/2023 Orders Only [facility] [address] [place] [address] Alban Montilla MD [address] [place], [place] [address] Social History Tobacco Use Types Packs/Day Years [...] often do you attend chur ch or jew services? Never 12/11/2022 Active Member of Clubs [...] Recorded Patient Health Questionnaire-2 Score 0 02/06/2023 [facility] of Occupat [facility]pr Health - Occupational Stress Questionnaire Answer Date [...] CI FM [address] [facility] [address] [place] [address] Jayme Parham MD [address] [place] [address] (Fax) 01/07/2025 12:00 PM EDT Treatment [facility] [address] [place] [address] Clara Whitten PTA 01/10/2025 11:00 AM EDT Treatment [facility] [address] [place] [address] Joselyn Narvaez, PT 02/02/2025 1:30 PM EDT Office Visit [facility] [address] [place] [address] Mick Farmer DO [address] [place] [address] documented as of this encounter Procedures Procedure Name Priority Date/Time Associated Diagnosis Comments XR CHEST 1 VIEW Routine 07/15/2023 11:38 AM EST ECG 12-LEAD Routine 07/15/2023 11:36 AM EST documented in this encounter Results * XR chest 1 view (07/15/2023 11:38 AM EST) Anatomical Region Laterality Modality Chest Radiographic Yin ging us Lobito Rodriguez MD IMG XR PROCEDURES Final Result * ECG 12 lead (07/15/2023 11:36 AM EST) us Alban Montilla MD ECG ORDERABLES Final Resul t documented in this encounter Visit Diagnoses Not on filedocumented in this encounter Additional Health Concerns Assessment Noted Time PHQ-9 Depression Total Score: 7 05/22/20 23 2:00 PM EST documented as of this encounter Care Teams Custodial Supervisor Relationship Specialty Start Date End Date Jayme Parham MD [address] [place] [address] (Fax) PCP - General Family Medicine 11/25/22 Jayme Parham MD [address] [place] [address] (Fax) PCP - ACO Reach 12/05/22 Mick Farmer DO [address] [place] [address] Referring Physician Ophthalmology 08/21/23 Renato Santacruz MD [address] [place] [address] Referring Physician Urology 08/21/23 Chuy Wood MD [address] [facility] Professional building [address] [place] [phone] Referring Physician Rheumatology 08/21/23 documented as of this encounter
--- OUTSIDE RECORDS SUMMARY | 2025-01-06 11:11 | XMS_ITS | Encounter Summary ---
Author Organization [facility] Address [address] [place] [address] Care Team Providers Care Head Teacher Name Role Phone Jayme Parham MD Primary Care Provider [phone] Jayme Parham MD Unavailable [phone] Mick Farmer DO Unavailable [phone] Renato Santacruz MD Unavailable [phone] Chuy Wood MD Unavailable [phone] Encounter Details Date Type Department Care Team (Late st Contact Info) Description 07/16/2023 Orders Only [facility] [address] [place] [address] Jayme Parham MD 112 [facility] 100 [place] [address] Acute cough (Primary Dx); Chronic obstructive pulmonary disease with acute exacerbation (HCC) Social History Tobacco Use Types Packs/Day Years [...] often do you attend chur ch or druze services? Never 12/11/2022 Active Member of Clubs [...] Recorded Patient Health Questionnaire-2 Score 0 02/06/2023 [facility] of Occupat ional Health - Occupational [...] place to sleep or slept in a [facility] (including now)? No 12/11/2022 Education Answer Date [...] FM [address] [place] [address] Jayme Parham MD [address] [place] [address] (Fax) 01/07/2025 12:00 PM EDT Treatment [facility] [address] [place] [address] Clara Whitten PTA 01/10/2025 11:00 AM EDT Treatment [facility] [address] [place] [address] Brice Joselyn, PT 02/02/2025 1:30 PM EDT Office Visit [facility] [address] [place] [address] Mick Farmer DO [address] [place] [address] documented as of this encounter Visit Diagnoses Diagnosis Acute cough- Primary Chronic obstructive pulmonary disease with acute exacerbation (HCC) documented in this encounter Additional Health Concerns Assessment Noted Time PHQ-9 Depression Total Score: 7 05/22/20 2:00 PM EST documented as of this encounter Care Teams Head Teacher Relationship Specialty Start Date End Date Jayme Parham MD [address] [place] [address] PCP - General Family Medicine 11/25/22 Jayme Parham MD [address] [place] [address] PCP - ACO Reach 12/05/22 Mick Farmer DO [address] [place] [address] Referring Physician Ophthalmology 08/21/23 Renato Santacruz MD [address] [place] [address] Referring Physician Urology 08/21/23 Chuy Wood MD [address] Professional [address] [place] [address] Referring Physician Rheumatology 08/21/23 documented as of this encounter
--- OUTSIDE RECORDS SUMMARY | 2025-01-06 11:11 | XMS_ITS | Encounter Summary ---
Author Organization [facility] Address [address] [place] [address] Care Team Providers Care Tierce Filler Name Role Phone Jayme Parham MD Primary Care Provider [phone] Jayme Parham MD Unavailable [phone] Mick Farmer DO Unavailable [phone] Renato Santacruz MD Unavailable [phone] Chuy Wood MD Unavailable [phone] Encounter Details Date Type Department Care Team (Late st Contact Info) Description 02/11/2023 Orders Only [facility] [address] [place] [address] Jayme Parham MD 112 [facility] 100 [place] [address] Social History Tobacco Use Types [...] attend chur ch or methodist services? Never 12/11/2022 Active Member of Clubs [...] Recorded Patient Health Questionnaire-2 Score 0 02/06/2023 [facility] of Occupat ional Health - [...] in a assisted (including now)? No 12/11/2022 Education Answer Date [...] FM [address] [place] [address] Jayme Parham MD [address] [place] [address] (Fax) 01/07/2025 12:00 PM EDT Treatment [facility] [address] [place] [address] Clara Whitten, LEAN FACILITATOR 01/10/2025 11:00 AM EDT Treatment [facility] PT [address] [facility] 170 [place] [address] Joselyn Narvaez, PT 02/02/2025 1:30 PM EDT Office Visit [facility] [address] [place] [address] Mick Farmer DO [address] [place] [address] documented as of this encounter Procedures Procedure Name Priority Date/Time Associated Diagnosis Comments XR IVP Routine 02/11/2023 2:09 PM EDT documented in this encounter Results * XR IVP (02/11/2023 2:09 PM EDT) Anatomical Region Laterality Modality Radiographic Yin ging Jayme Parham MD IMG XR PROCEDURES Final Resu lt documented in this encounter Visit Diagnoses Not on filedocumented in this encounter Care Teams Tierce Filler Relationship Specialty Start Date End Date Jayme Parham MD 112 [facility] 100 [place] [address] PCP - General Family Medicine 11/25/22 Jayme Parham MD 112 [facility] 100 [place] [address] PCP - ACO Reach 12/05/22 Mick Farmer DO [address] [place] [address] Referring Physician Ophthalmology 08/21/23 Renato Santacruz MD [address] [place] [address] Referring Physician Urology 08/21/23 Chuy Wood MD [address] [address] Referring Physician Rheumatology 08/21/23 documented as of this encounter
--- OUTSIDE RECORDS SUMMARY | 2025-01-06 11:11 | XMS_ITS | Encounter Summary ---
Author Organization [facility] Address [address] [place] [address] Care Team Providers Care Solutions Consultant Name Role Phone Jayme Perez MD Primary Care Provider [phone] Jayme Perez MD Unavailable [phone] Mick Farmer DO Unavailable [phone] Renato Santacruz MD Unavailable [phone] Chuy Wood MD Unavailable [phone] Encounter Details Date Type Department Care Team (Late st Contact Info) Description 04/23/2024 Clinisync Result Encounter [facility] External Department Unsolicited Jayme Perez MD 112 [facility] 100 [place] [address] Social History Tobacco Use Types [...] How often do you attend chur or mandaeism services? Never 04/08/2024 Do you belong to any clubs o r organizations such as taoist groups, unions, fraternal or athletic groups, or [...] Recorded Patient Health Questionnaire-2 Score 0 02/06/2023 [facility] of Occupat ional Health - Occupational Stress [...] place to sleep or slept in a halfway (including now)? No 12/11/2022 Housing Stability Vital Sign Answer Stefan e Recorded In the last 12 months, was t here a time when you were not able to pay the mortgage or rent on time? No 04/08/2024 In the past 12 months, how m any times have you moved where you were living? 0 04/08/2024 At any time in the past 12 m [facility], were you homeless or living in a halfway (including now)? No 04/08/2024 Education Answer Date [...] [address] [place] [address] Jayme Perez MD [address] [place] [address] 01/07/2025 12:00 PM EDT Treatment [facility] PT [address] [place] [address] IsaiasClara calvert, ENROLLMENT ADVISOR 01/10/2025 11:00 AM EDT Treatment [facility] PT [address] [place] [address] Avtar Narvazemantha, PT 02/02/2025 1:30 PM EDT Office Visit [facility] [address] [place] [address] Mick Farmer, DO [address] [place] [address] documented as of this encounter Procedures Procedure Name Priority Date/Time Associated Diagnosis Comments CT ABDOMEN PELVIS W CON 04/23/2024 4:45 AM EDT documented in this encounter Results * CT ABDOMEN PELVIS W CON (04/23/2024 4:45 AM EDT) Anatomical Region Laterality Modality Other 04/23/2024 4:45 AM EDT Narrative 04/23/2024 4:48 AM EDT [address] [address] [address] Scan Report Signed Patient: WILDA SEN MR#: [id number] : 1945 Acct:[id number] Age/Sex: 79 / F ADM Date: 04/22/24 Loc: LAB Attending Dr: JAYME PEREZ Ordering Physician: JAYME PEREZ Date of Service: 04/22/24 Procedure(s): CT abdomen pelvis w con Accession Number(s): [id number] cc: JAYME PEREZ [address] [place] [place] [address] [place], [place] [address] Patient Name: WILDA SEN MRN: [id number] date: 1945 Sex: F Assigned Patient Location: LAB Current Patient Location: Accession/Order Number: [id number] Exam Date: 04/22/2024 12:40 Report Date: 04/23/2024 04:45 At the request of: JAYME PEREZ Procedure: CT abdomen pelvis w con EXAMINATION: CT abdomen pelvis w con HISTORY: Unexplained weight loss R63.4 COMPARISON: CT abdomen pelvis 08/12/2023 TECHNIQUE: Axial, Coronal, and Sagittal images were obtained without and/or with IV contrast as indicated by examination type. Dose reduction techniques were achieved by using automated exposure control and/or adjustment of mA and/or kV according to patient size and/or use of iterative reconstruction technique. FINDINGS: LUNG BASES: No visible pulmonary or pleural disease. LIVER: No enlargement, atrophy, suspicious density, or significant focal lesion. BILIARY: No dilatation or calcification. PANCREAS: No lesion, fluid collection, or abnormal duct dilatation. SPLEEN: No enlargement or focal lesion. ADRENALS: Grossly stable, nonspecific 11 mm nodule within left adrenal gland. KIDNEYS: 2 nonobstructing small stones within right kidney and a benign-appearing cyst. Unremarkable left kidney and bilateral ureters. No mass, obstruction, or calcification. BOWEL/MESENTERY: No visible mass, obstruction, or bowel wall thickening. AORTA/VASCULAR: No aneurysm or dissection. RETROPERITONEUM: No mass or adenopathy. LYMPH NODES: No adenopathy. URINARY BLADDER: No visible focal wall thickening, lesion, or calculus. PELVIC ORGANS: Hysterectomy. ABDOMINAL WALL: No mass or hernia. BONES: No bony lesion or fracture. L5-S1 marked degenerative disc disease. OTHER: Negative. CT/CT abdomen pelvis w con IMPRESSION: 1. No abnormal or suspicious findings to account for patient's symptoms. 2. Stable, chronic left adrenal nodule; nonspecific. 3. Nonobstructing nephrolithiasis. 4. Marked degenerative disc disease at L5-S1. Electronically authenticated by: VARGHESE GARAY Date: 04/23/2024 04:45 Dictated By: Varghese Garay M.D. Signed By: [id number] DD/ 4 TD/TT: Patient Care: Procedure Note Radiology, Radiologist, - 04/23/[address] [address] [address] Scan Report Signed Patient: WILDA SEN JMR#: [id number] : 1945cct:[id number] Age/Sex: 79 / FADM Date: 04/22/24 Loc: LAB Attending Dr: JAYME PEREZ Ordering Physician: JAYME PEREZ Date of Service: 04/22/24 Procedure(s): CT abdomen pelvis w con Accession Number(s): [id number] cc: JAYME PEREZ [address] [address] Patient Name: WILDA SEN MRN: [id number] date: 1945 Sex: F Assigned Patient Location: LAB Current Patient Location: Accession/Order Number: [id number] Exam Date: 04/22/2024 12:40 Report Date: 04/23/2024 04:45 At the request of: JAYME PEREZ Procedure: CT abdomen pelvis w con EXAMINATION: CT abdomen pelvis w con HISTORY: Unexplained weight loss R63.4 COMPARISON: CT abdomen pelvis 08/12/2023 TECHNIQUE: Axial, Coronal, and Sagittal images were obtained withoutand/or with IV contrast as indicated by examination type. Dose reductiontechniques were achieved by using automated exposure control and/or adjustment of mA and/or kV according to patient size and/or use of iterative reconstruction technique. FINDINGS: LUNG BASES: No visible pulmonary or pleural disease. LIVER: No enlargement, atrophy, suspicious density, or significant focal lesion. BILIARY: No dilatation or calcification. PANCREAS: No lesion, fluid collection, or abnormal duct dilatation. SPLEEN: No enlargement or focal lesion. ADRENALS: Grossly stable, nonspecific 11 mm nodule within left adrenalgland. KIDNEYS: 2 nonobstructing small stones within right kidney and a benign-appearing cyst. Unremarkable left kidney and bilateral ureters. No mass, obstruction, or calcification. BOWEL/MESENTERY: No visible mass, obstruction, or bowel wall thickening. AORTA/VASCULAR: No aneurysm or dissection. RETROPERITONEUM: No mass or adenopathy. LYMPH NODES: No adenopathy. URINARY BLADDER: No visible focal wall thickening, lesion, or calculus. PELVIC ORGANS: Hysterectomy. ABDOMINAL WALL: No mass or hernia. BONES: No bony lesion or fracture. L5-S1 marked degenerative disc disease. OTHER: Negative. CT/CT abdomen pelvis w con IMPRESSION: 1. No abnormal or suspicious findings to account for patient's symptoms. 2. Stable, chronic left adrenal nodule; nonspecific. 3. Nonobstructing nephrolithiasis. 4. Marked degenerative disc disease at L5-S1. Electronically authenticated by: VARGHESE GARAY Date: 04/23/2024 04:45 Dictated By: Varghese Garay M.D. Signed By:04/23/24447 DD/ 4 TD/TT: Patient Care: Jayme Perez MD [facility] Final Resu lt documented in this encounter Visit Diagnoses Not on filedocumented in this encounter Additional Health Concerns Assessment Noted Time PHQ-9 Depression Total Score: 7 05/22/20 23 2:00 PM EST documented as of this encounter Care Teams Solutions Consultant Relationship Specialty Start Date End Date Jayme Perez MD [address] [address] (Fax) PCP - General Family Medicine 11/25/22 Jayme Perez MD [address] [address] (Fax) PCP - ACO Reach 12/05/22 Mick Farmer DO [address] [facility] [address] [place] [address] Referring Physician Ophthalmology 08/21/23 Renato Santacruz MD [address] [place] [address] Referring Physician Urology 08/21/23 Chuy Wood MD [address] Professional [address] [place] [address] Referring Physician Rheumatology 08/21/23 documented as of this encounter
--- OUTSIDE RECORDS SUMMARY | 2025-01-06 11:11 | XMS_ITS | Encounter Summary ---
Author Organization [facility] Address [address] [place] [address] Care Team Providers Care Wedding Transportation Driver Name Role Phone Jayme Parham MD Primary Care Provider [phone] Jayme Parham MD Unavailable [phone] Mick Farmer DO Unavailable [phone] Renato Santacruz MD Unavailable [phone] Chuy Wood MD Unavailable [phone] Encounter Details Date Type Department Care Team (Late st Contact Info) Description 07/17/2023 Abstract [facility] [address] [place] [phone] Alban Montilla MD [address] [place], [place] [id number] Social History Tobacco Use Types Packs/Day Years [...] often do you attend chur ch or scientology services? Never 12/11/2022 Active Member of Clubs [...] Patient Health Questionnaire-2 Score 0 02/06/2023 [facility] of Occupat ional Health - Occupational Stress [...] [facility] CI FM [address] [facility] 100 [place] [address] Jayme Parham MD [address] [place] [address] (Fax) 01/07/2025 12:00 PM EDT Treatment [facility] PT [address] [place] [phone] Clara Whitten PTA 01/10/2025 11:00 AM EDT Treatment [facility] PT [address] [place] [address] Joselyn Narvaez, PT 02/02/2025 1:30 PM EDT Office Visit [facility] [address] [place] [address] Mick Farmer DO [address] [place] [address] documented as of this encounter Visit Diagnoses Not on filedocumented in this encounter Additional Health Concerns Assessment Noted Time PHQ-9 Depression Total Score: 7 05/22/20 23 2:00 PM EST documented as of this encounter Care Teams Wedding Transportation Driver Relationship Specialty Start Date End Date Jayme Parham MD [address] [place] [address] PCP - General Family Medicine 11/25/22 Jayme Parham MD [address] [place] [address] PCP - ACO Reach 12/05/22 Mick Farmer DO [address] [place] [address] Referring Physician Ophthalmology 08/21/23 Renato Santacruz MD [address] [place] [address] Referring Physician Urology 08/21/23 Chuy Wood MD [address] [facility] Professional building [address] [place] [phone] Referring Physician Rheumatology 08/21/23 documented as of this encounter
--- OUTSIDE RECORDS SUMMARY | 2025-01-06 11:11 | XMS_ITS | Encounter Summary ---
Author Organization [facility] Address [address] [place] [address] Care Team Providers Care Panel Laminator Name Role Phone Jayme Parham MD Primary Care Provider [phone] Jayme Parham MD Unavailable [phone] Mick Farmer DO Unavailable [phone] Renato Santacruz MD Unavailable [phone] Chuy Wood MD Unavailable [phone] Encounter Details Date Type Department Care Team (Late st Contact Info) Description 12/29/2024 [employer] flowsheet [facility] PT [address] [place] [address] Clara Whitten, CARA Social History Tobacco Use Types Packs/Day Years [...] attend chur ch or mosque services? Never 04/08/2024 Do you belong to [...] Recorded Patient Health Questionnaire-2 Score 0 11/04/2024 [facility] of Occupat ional Health [...] a long term (including now)? No 12/11/2022 Housing Stability Vital [...] time in the past 12 m [facility], were you homeless or living in a long term (including now)? No 04/08/2024 Education Answer Date [...] [facility] CI FM [address] [facility] 100 [place] [address] Jayme Parham MD [address] [place] [address] (Fax) 01/07/2025 12:00 PM EDT Treatment [facility] PT [address] [facility] 170 [place] [address] Clara Whitten, SOFTWARE ENGINEER INTERN 01/10/2025 11:00 AM EDT Treatment [facility] PT [address] [facility] 170 [place] [address] Brice Joselyn, PT 02/02/2025 1:30 PM EDT Office Visit [facility] [address] [place] [address] Mick Farmer DO [address] [place] [address] documented as of this encounter Visit Diagnoses Not on filedocumented in this encounter Additional Health Concerns Assessment Noted Time PHQ-9 Depression Total Score: 7 11/05/19 25 1:00 PM EDT documented as of this encounter Care Teams Panel Laminator Relationship Specialty Start Date End Date Jayme Parham MD [address] [facility] 100 [place] [address] (Fax) PCP - General Family Medicine 11/25/22 Jayme Parham MD [address] [place] [address] (Fax) PCP - ACO Reach 12/05/22 Mick Farmer DO [address] [place] [address] Referring Physician Ophthalmology 08/21/23 Renato Santacruz MD [address] [place] [address] Referring Physician Urology 08/21/23 Chuy Wood MD [address] [facility] Professional [address] [phone] Referring Physician Rheumatology 08/21/23 documented as of this encounter
--- OUTSIDE RECORDS SUMMARY | 2025-01-06 11:11 | XMS_ITS | Encounter Summary ---
Author Organization [facility] Address [address] [place] [address] Care Team Providers Care Coach Driver Name Role Phone Jayme Parham MD Primary Care Provider [phone] Jayme Parham MD Unavailable [phone] Mick Farmer DO Unavailable [phone] Renato Santacruz MD Unavailable [phone] Chuy Wood MD Unavailable [phone] Encounter Details Date Type Department Care Team (Late st Contact Info) Description 07/28/2023 Abstract [facility] [address] [place] [phone] Lou Glover, ADMINISTRATIVE SALES ASSISTANT [address] [facility] [place] [address] Social History Tobacco Use Types Packs/Day Years [...] often do you attend chur ch or rastafarian services? Never 12/11/2022 Active Member of Clubs [...] Patient Health Questionnaire-2 Score 0 02/06/2023 [facility] of Occupat ional Health - [...] place to sleep or slept in a senior care (including now)? No 12/11/2022 Education Answer Date [...] FM [address] [place] [address] Jayme Parham MD [address] [place] [address] (Fax) 01/07/2025 12:00 PM EDT Treatment [facility] PT [address] [place] [address] Clara Whitten, CARA 01/10/2025 11:00 AM EDT Treatment [facility] PT [address] [place] [address] Joselyn Narvaez, PT 02/02/2025 1:30 PM EDT Office Visit [facility] [address] [place] [address] Mick Farmer DO [address] [place] [address] documented as of this encounter Visit Diagnoses Not on filedocumented in this encounter Additional Health Concerns Assessment Noted Time PHQ-9 Depression Total Score: 7 05/22/20 23 2:00 PM EST documented as of this encounter Care Teams Coach Driver Relationship Specialty Start Date End Date Jayme Parham MD 112 [facility] 100 [place] [address] PCP - General Family Medicine 11/25/22 Jayme Parham MD 112 [facility] 100 [place] [address] PCP - ACO Reach 12/05/22 Mick Farmer DO [address] [place] [address] Referring Physician Ophthalmology 08/21/23 Renato Santacruz MD [address] [place] [address] Referring Physician Urology 08/21/23 Chuy Wood MD [address] [facility] Professional building 1 [place] [address] Referring Physician Rheumatology 08/21/23 documented as of this encounter
--- OUTSIDE RECORDS SUMMARY | 2025-01-06 11:11 | XMS_ITS | Referral Summary ---
Author Organization [facility] Address [address] [place] [address] Care Team Providers Care Prepared Foods Supervisor Name Role Phone Unavailable Primary Care Provider [...] file Plan of Treatment Not on file Insurance MEDICARE
--- OUTSIDE RECORDS SUMMARY | 2025-01-06 11:11 | XMS_ITS | Encounter Summary ---
Author Organization [facility] Address [address] [place] [address] Care Team Providers Care Tools Administrator Name Role Phone Jayme Parham MD Primary Care Provider [phone] Jayme Parham MD Unavailable [phone] Mick Farmer DO Unavailable [phone] Renato Santacruz MD Unavailable [phone] Chuy Wood MD Unavailable [phone] Encounter Details Date Type Department Care Team (Latest Contact Info) Description 12/23/2024 Travel Social History Tobacco Use Types Packs/Day Years [...] How often do you attend chur or sabianism services? Never 04/08/2024 Do you belong to any clubs o r organizations such as scientologist groups, unions, fraternal or athletic groups, or [...] Patient Health Questionnaire-2 Score 0 11/04/2024 [facility] - Occupational Stress Questionnaire Answer [...] place to sleep or slept in a fdc (including now)? No 12/11/2022 Housing Stability Vital Sign Answer Stefan e Recorded In the last 12 months, was t here a time when you were not able to pay the mortgage or rent on time? No 04/08/2024 In the past 12 months, how m any times have you moved where you were living? 0 04/08/2024 At any time in the past 12 m [facility], were you homeless or living in a fdc (including now)? No 04/08/2024 Education Answer Date [...] FM [address] [place] [address] Jayme Parham MD [address] [place] [address] (Fax) 01/07/2025 12:00 PM EDT Treatment [facility] PT [address] [place] [address] Clara Whitten, LINING LAYER 01/10/2025 11:00 AM EDT Treatment [facility] PT [address] [facility] 170 [place] [address] Joselyn Narvaez, PT 02/02/2025 1:30 PM EDT Office Visit [facility] [address] [place] [address] Mick Farmer DO [address] [place] [address] documented as of this encounter Visit Diagnoses Not on filedocumented in this encounter Additional Health Concerns Assessment Noted Time PHQ-9 Depression Total Score: 7 11/05/19 25 1:00 PM EDT documented as of this encounter Care Teams Tools Administrator Relationship Specialty Start Date End Date Jayme Parham MD [address] [facility] 100 [place] [address] (Fax) PCP - General Family Medicine 11/25/22 Jayme Parham MD [address] [facility] 100 [place] [address] (Fax) PCP - ACO Reach 12/05/22 Mick Farmer DO [address] [place] [address] Referring Physician Ophthalmology 08/21/23 Renato Santacruz MD [address] [place] [phone] Referring Physician Urology 08/21/23 Chuy Wood MD [address] [place] [address] Referring Physician Rheumatology 08/21/23 documented as of this encounter
--- OUTSIDE RECORDS SUMMARY | 2025-01-06 11:11 | XMS_ITS | Encounter Summary ---
Author Organization [facility] Address [address] [place] [address] Care Team Providers Care Inverform Machine Operator Name Role Phone Jayme Parham MD Primary Care Provider [phone] Jayme Parham MD Unavailable [phone] Mick Farmer DO Unavailable [phone] Renato Santacruz MD Unavailable [phone] Chuy Wood MD Unavailable [phone] Encounter Details Date Type Department Care Team (Latest Contact Info) Description 12/29/2024 Travel Social History Tobacco Use Types Packs/Day [...] How often do you attend chur or taoism services? Never 04/08/2024 Do you belong to any clubs o r organizations such as islam groups, unions, fraternal or athletic groups, or [...] Recorded Patient Health Questionnaire-2 Score 0 11/04/2024 [facility] - Occupational Stress Questionnaire [...] place to sleep or slept in a custodial (including now)? No 12/11/2022 Housing Stability Vital [...] time in the past 12 m [facility], were you homeless or living in a custodial (including now)? No 04/08/2024 Education Answer Date [...] FM [address] [place] [address] Jayme Parham MD [address] [place] [address] (Fax) 01/07/2025 12:00 PM EDT Treatment [facility] PT [address] [place] [address] Clara Whitten, AIRPORT ATTENDANT 01/10/2025 11:00 AM EDT Treatment [facility] PT [address] [facility] 170 [place] [address] Joselyn Narvaez, PT 02/02/2025 1:30 PM EDT Office Visit [facility] [address] [place] [address] Mick Farmer DO [address] [place] [address] documented as of this encounter Visit Diagnoses Not on filedocumented in this encounter Additional Health Concerns Assessment Noted Time PHQ-9 Depression Total Score: 7 11/05/19 25 1:00 PM EDT documented as of this encounter Care Teams Inverform Machine Operator Relationship Specialty Start Date End Date Jayme Parham MD [address] [facility] 100 [place] [address] (Fax) PCP - General Family Medicine 11/25/22 Jayme Parham MD [address] [facility] 100 [place] [address] (Fax) PCP - ACO Reach 12/05/22 Mick Farmer DO [address] [place] [address] Referring Physician Ophthalmology 08/21/23 Renato Santacruz MD [address] [place] [id number] Referring Physician Urology 08/21/23 Chuy Wood MD [address] [place] [address] Referring Physician Rheumatology 08/21/23 documented as of this encounter
--- OUTSIDE RECORDS SUMMARY | 2025-01-06 11:12 | XMS_ITS | Encounter Summary ---
Author Organization [facility] Address [address] [place] [address] Care Team Providers Care Coater Operator Insulation Board Name Role Phone Jayme Parham MD Primary Care Provider [phone] Jayme Parham MD Unavailable [phone] Mick Farmer DO Unavailable [phone] Renato Santacruz MD Unavailable [phone] Chuy Wood MD Unavailable [phone] Encounter Details Date Type Department Care Team (Latest Contact Info) Description 12/31/2024 Travel Social History Tobacco Use Types Packs/Day [...] How often do you attend chur or yarsanism services? Never 04/08/2024 Do you belong to any clubs o r organizations such as sikh groups, unions, fraternal or athletic groups, or [...] Recorded Patient Health Questionnaire-2 Score 0 11/04/2024 [facility] - Occupational Stress Questionnaire Answer [...] to sleep or slept in a senior living (including now)? No 12/11/2022 Housing Stability Vital [...] were you homeless or living in a senior living (including now)? No 04/08/2024 Education Answer Date [...] FM [address] [place] [address] Jayme Parham MD [address] [place] [address] (Fax) 01/07/2025 12:00 PM EDT Treatment [facility] [address] [place] [address] Clara Whitten, WOOL MERCHANT 01/10/2025 11:00 AM EDT Treatment [facility] [address] [facility] [address] [place] [address] Joselyn Narvaez, PT 02/02/2025 1:30 PM EDT Office Visit [facility] [address] [place] [id number] Mick Farmer DO [address] [place] [address] documented as of this encounter Visit Diagnoses Not on filedocumented in this encounter Additional Health Concerns Assessment Noted Time PHQ-9 Depression Total Score: 7 11/05/19 25 1:00 PM EDT documented as of this encounter Care Teams Coater Operator Insulation Board Relationship Specialty Start Date End Date Jayme Parham MD [address] [facility] 100 [place] [address] (Fax) PCP - General Family Medicine 11/25/22 Jayme Parham MD [address] [facility] 100 [place] [address] (Fax) PCP - ACO Reach 12/05/22 Mick Farmer DO [address] [place] [address] Referring Physician Ophthalmology 08/21/23 Renato Santacruz MD [address] [id number] Referring Physician Urology 08/21/23 Chuy Wood MD [address] [place] [address] Referring Physician Rheumatology 08/21/23 documented as of this encounter
--- OUTSIDE RECORDS SUMMARY | 2025-01-06 11:12 | XMS_ITS | Encounter Summary ---
Author Organization [facility] Address [address] [place] [address] Care Team Providers Care Deputy Sheriff Bailiff Name Role Phone Jayme Parham MD Primary Care Provider [phone] Jayme Parham MD Unavailable [phone] Mick Farmer DO Unavailable [phone] Renato Santacruz MD Unavailable [phone] Chuy Wood MD Unavailable [phone] Encounter Details Date Type Department Care Team (Latest Contact Info) Description 01/05/2025 Travel Social History Tobacco Use Types Packs/Day [...] How often do you attend chur or gnosticism services? Never 04/08/2024 Do you belong to [...] Questionnaire-2 Score 0 11/04/2024 [facility] - [facility]ational [facility] Questionnaire [...] in a chcf (including now)? No 12/11/2022 Housing Stability Vital Sign Answer Stefan e Recorded In the last 12 months, was t here a time when you were not able to pay the mortgage or rent on time? No 04/08/2024 In the past 12 months, how m any times have you moved where you were living? 0 04/08/2024 At any time in the past 12 m [facility], were you homeless or living in a chcf (including now)? No 04/08/2024 Education Answer Date [...] FM [address] [place] [address] Jayme Parham MD [address] [place] [address] (Fax) 01/07/2025 12:00 PM EDT Treatment [facility] [address] [place] [address] Clara Whitten, WAREHOUSE ADMINISTRATOR 01/10/2025 11:00 AM EDT Treatment [facility] [address] [facility] 170 [place] [address] Joselyn Narvaez, PT 02/02/2025 1:30 PM EDT Office Visit [facility] [address] [place] [phone] Mick Farmer DO [address] [place] [address] documented as of this encounter Visit Diagnoses Not on filedocumented in this encounter Additional Health Concerns Assessment Noted Time PHQ-9 Depression Total Score: 7 11/05/19 25 1:00 PM EDT documented as of this encounter Care Teams Deputy Sheriff Bailiff Relationship Specialty Start Date End Date Jayme Parham MD [address] [facility] 100 [place] [address] (Fax) PCP - General Family Medicine 11/25/22 Jayme Parham MD [address] [facility] 100 [place] [address] (Fax) PCP - ACO Reach 12/05/22 Mick Farmer DO [address] [place] [address] Referring Physician Ophthalmology 08/21/23 Renato Santacruz MD [address] [phone] Referring Physician Urology 08/21/23 Chuy Wood MD [address] [place] [address] Referring Physician Rheumatology 08/21/23 documented as of this encounter
--- OUTSIDE RECORDS SUMMARY | 2025-01-06 11:12 | XMS_ITS | Encounter Summary ---
Author Organization [facility] Address [address] [place] [address] Care Team Providers Care Demand Inspector Name Role Phone Jayme Parham MD Primary Care Provider [phone] Jayme Parham MD Unavailable [phone] Mick Farmer DO Unavailable [phone] Renato Santacruz MD Unavailable [phone] Chuy Wood MD Unavailable [phone] Encounter Details Date Type Department Care Team (Late st Contact Info) Description 12/31/2024 BamPar[facility]nowo flowsheet [facility] [address] [place] [address] Clara Whitten, CARA Social History [...] attend chur ch or adventist services? Never 04/08/2024 Do you belong to any clubs o r organizations such as tenriism groups, unions, fraternal or athletic groups, or [...] Recorded Patient Health Questionnaire-2 Score 0 11/04/2024 [facility] ional Health [...] place to sleep or slept in a correction (including now)? No 12/11/2022 Housing Stability Vital Sign Answer Stefan e Recorded In the last 12 months, was t here a time when you were not able to pay the mortgage or rent on time? No 04/08/2024 In the past 12 months, how m any times have you moved where you were living? 0 04/08/2024 At any time in the past 12 m [facility], were you homeless or living in a correction (including now)? No 04/08/2024 Education Answer Date [...] [facility] [address] [facility] 100 [place] [address] Jayme Parham MD [address] [place] [address] (Fax) 01/07/2025 12:00 PM EDT Treatment [facility] [address] [facility] [address] [place] [address] Clara Whitten, FORKLIFT MECHANIC 01/10/2025 11:00 AM EDT Treatment [facility] [address] [facility] [address] [place] [address] Brice Joselyn, PT 02/02/2025 1:30 PM EDT Office Visit [facility] [address] [place] [address] Mick Farmer DO [address] [place] [address] documented as of this encounter Visit Diagnoses Not on filedocumented in this encounter Additional Health Concerns Assessment Noted Time PHQ-9 Depression Total Score: 7 11/05/19 25 1:00 PM EDT documented as of this encounter Care Teams Demand Inspector Relationship Specialty Start Date End Date Jayme Parham MD [address] [facility] 100 [place] [address] (Fax) PCP - General Family Medicine 11/25/22 Jayme Parham MD [address] [place] [address] (Fax) PCP - ACO Reach 12/05/22 Mick Farmer DO [address] [place] [address] Referring Physician Ophthalmology 08/21/23 Renato Santacruz MD [address] [place] [address] Referring Physician Urology 08/21/23 Chuy Wood MD [address] [facility] Professional [address] [phone] Referring Physician Rheumatology 08/21/23 documented as of this encounter
[2025-01-06 11:38] LABS: INR 2.22; Prothrombin Time 21.7 sec (9.0-11.6)
== END 2025-01-06 11:06 | disposition home or self-care (01) ==
PROVIDERS: PCP Family Medicine; Visit Provider Family Medicine
DX: I48.0 Paroxysmal atrial fibrillation (principal); Z79.01 Long term (current) use of anticoagulants; Z51.81 Encounter for therapeutic drug level monitoring
CPT/HCPCS: 36415; 85610

== ENCOUNTER 2025-01-21 13:46 | Outpatient (OUT) | payer MEDICARE, SELFPAY ==
[2025-01-21 14:21] LABS: Alanine Aminotransferase 21 U/L (14-59); Albumin Globulin Ratio 1.3; Albumin Level 3.7 g/dL (3.4-5.0); Alkaline Phosphatase 52 U/L (46-116); Anion Gap 12.9; Aspartate Amino Transferase 15 U/L (15-37); Blood Urea Nitrogen 21.0 mg/dL (7.0-18.0); Calcium 9.6 mg/dL (8.5-10.1); Carbon Dioxide 29.3 mmol/L (21.0-32.0); Chloride 106 mmol/L (98-107); Estimated GFR (African America >60 (>=60 mL/min/1.73m^2); Estimated GFR (Non-African Ame >60 (>=60 mL/min/1.73m^2); Globulin 2.9 g/dL; Glucose 115 mg/dL (74-106); Magnesium 1.8 mg/dL (1.8-2.4); Potassium 4.2 mmol/L (3.5-5.1); Sodium 144 mmol/L (136-145); Total Protein 6.6 g/dL (6.4-8.2)
[2025-01-21 14:44] LABS: Hematocrit 37.0 % (36.0-48.0); Hemoglobin 12.0 g/dL (12.0-16.0); Immature Granulocytes Abs Auto 0.03 10^3/uL (0.00-0.03); Immature Granulocytes Pct Auto 0.4 % (0.0-0.5); Lymphocytes Absolute Auto 2.2 10^3/uL (1.2-3.8); Mean Corpuscular HGB Conc 32.4 g/dL (29.9-35.2); Mean Corpuscular Hemoglobin 31.3 pg (26.7-34.0); Mean Corpuscular Volume 96.4 fL (81.0-99.0); Platelet Count 308 10^3/uL (150-450); Red Blood Count 3.84 10^6/uL (4.20-5.40); White Blood Count 7.0 10^3/uL (4.0-11.0)
== END 2025-01-21 13:47 | disposition home or self-care (01) ==
LOC: LAB 13:48
PROVIDERS: PCP Family Medicine; Visit Provider Internal Medicine Rheumatology
DX: L40.59 Other psoriatic arthropathy (principal); Z79.899 Other long term (current) drug therapy
CPT/HCPCS: 36415; 80053; 83735; 84100; 85025; 85652

== ENCOUNTER 2025-01-31 09:16 | Observation (INO) | payer MEDICARE, SELFPAY ==
[2025-01-31] VITALS (20 sets, daily range): BP systolic 103–142; BP diastolic 52–90; PULSE 67–89; TEMP 36.6–36.9; O2SAT 80–100; BMI 20.7; BMI 21.4
--- NOTE | 2025-01-31 | OP_ITS ---
OPERATION DATE: 01/31/2025 PREOPERATIVE DIAGNOSIS: 1. Left hydronephrosis and ureteral calculus. 2. Bilateral renal calculi. 3. Ongoing anticoagulation. POSTOPERATIVE DIAGNOSIS: 1. Left hydronephrosis and ureteral calculus. 2. Bilateral renal calculi. 3. Ongoing anticoagulation. PROCEDURE: 1. Cystoscopy. 2. Left retrograde pyelogram. 3. Left double J stent placement under fluoroscopic guidance. SURGEON: Vargas Jackson M.D. COMPLICATIONS: None. ANESTHESIA: Dr. Romero with a general. INDICATIONS: This is a 79-year-old female with a positive prior history of kidney stones, who presents to the ER with the acute onset of left sided flank pain. She was found to have a 6.5 mm stone in the left upper ureter. Pain has been ongoing and she elects to undergo the recommended cystoscopy, retrograde pyelogram and left double J stent placement. She is aware of the risks, benefits, details of this procedure, including the risk of bleeding, infection, need for additional procedural intervention, heart and lung problems under anesthesia, among others. She understands the risks of stent pain and irritation. Despite this, she wants to proceed. She does have sequential compression devices in place and functional on the bilateral lower extremities throughout the case. She did receive preoperative antibiotics. PROCEDURE: The patient was brought back to the operating room and a time out was performed. All were in agreement with the operative plan. After the successful induction of general anesthesia by Dr. Romero, she was placed in the modified dorsolithotomy position and prepped in the usual fashion with Betadine solution. She was draped appropriately. A well lubricated 22-Citizen Of [place] cystourethroscope with 30 degree lens was then passed into the bladder without difficulty. Tomas endoscopy reveals no tumors, no stones, no diverticula. The orifices are normal. Under fluoroscopic imaging, she does have some calcifications in the left true pelvis. No distinct stone was seen proximally, as noted on the previous CT scan. A left retrograde pyelogram was subsequently performed utilizing a 6-Citizen Of [place] open ended ureteral catheter. The calcifications are indeed phleboliths and no ureteral stone distally. The ureter was normal, all the way up to the left ureteropelvic junction. No distinct filling defect was identified, but I felt that I may have pushed the stone up into kidney. There is hydronephrosis and no obvious filling defect, even though we know she has bilateral small renal calculi as well. At this point, I decided to place a 0.035 Guidewire which was accomplished through the open ended catheter, and that catheter was removed. Over the wire then, which had been placed into the kidney, a 4.9 Citizen [place], 22-32 cm Dornier double J stent was passed into the left kidney. The wire was removed and there was good curl within the left upper pole and the urinary bladder. Minimal bleeding occurred, coming through the holes in the stent. The bladder was emptied, scope removed and the procedure was terminated. She tolerates it well. She will be transferred to PACU and then to the floor from there. Hopefully, she can be discharged either later tonight or tomorrow, with plans for scheduling of additional procedural intervention ? perhaps ESWL versus a retrograde ureteroscopic and nephroscopic approach with possible lithotripsy. She will need a KUB in the outpatient setting. PAVAN
--- NOTE | 2025-01-31 | XR_ITS ---
[address] [address] Patient Name: KASEY SEN MRN: [id number] date: 1945 Sex: F Assigned Patient Location: MS Current Patient Location: Accession/Order Number: [id number] Exam Date: 02/01/2025 09:28 Report Date: 02/01/2025 09:29 At the request of: ISAÍAS SAHU MD Procedure: XR urethrogram retrograde Intraoperative study. Reason for exam: Left retrograde pyelogram Findings: 2 images were obtained intraoperatively. Contrast is seen within the left collecting system with subsequent stent placement. Cumulative Air Kerma in mGy: 14.39 mGy XR/XR urethrogram retrograde Impression: Intraoperative study. Impression dictated by: Kevan Zhou Jr., D.O. 02/01/2025 9:29 AM Dictation Location: [place] [address] Electronically authenticated by: [id number] Y Date: 02/01/2025 09:29
--- NOTE | 2025-01-31 09:29 | CT_ITS ---
The [address] [address] Patient Name: KASEY SEN MRN: [id number] date: 1945 Sex: F Assigned Patient Location: ER Current Patient Location: .[facility] Accession/Order Number: [id number] Exam Date: 01/31/2025 10:44 Report Date: 01/31/2025 10:46 At the request of: KEISHA PEACE MD Procedure: CT abdomen pelvis wo con CT ABDOMEN AND PELVIS WITHOUT INTRAVENOUS CONTRAST: CLINICAL HISTORY: left flank pain COMPARISON: None TECHNIQUE: Spiral images were obtained through the abdomen and pelvis without intravenous contrast. This CT exam was performed using one or more following dose reduction techniques: Automated exposure control, adjustment of the mA and/or kV according to patient size, or use of iterative reconstruction technique. FINDINGS: Lung Bases: [Postsurgical changes involving the right lung base. Bibasilar scarring.] Organs:Suboptimal evaluation due to lack of IV contrast. Hepatic steatosis. Gallbladder spleen pancreas and adrenal glands all appear unremarkable. Bilateral nephrolithiasis is present with obstructing stone involving the proximal left ureter measuring 6.5 mm best seen on axial image 66.[Small cyst right kidney. Abdominal aorta appears normal in caliber. GI: Stomach is grossly unremarkable. Small bowel appears nondilated. Colonic diverticulosis.[ Pelvis:[Urinary bladder is grossly unremarkable. Uterus has been removed. No adnexal mass.] Peritoneum/Retroperitoneum:No free air or free fluid or lymphadenopathy.[ Abd wall/Bones:Abdominal wall demonstrate no acute findings. Osseous structures demonstrate degenerative change.[ CT/CT abdomen pelvis wo con IMPRESSION: Bilateral nephrolithiasis with a 6.5 mm obstructing stone proximal left ureter. Impression dictated by: Kevan Zhou Jr., JonesOAlbin 01/31/2025 10:46 AM Dictation Location: [place] Electronically authenticated by: [id number] Y Date: 01/31/2025 10:46
--- OUTSIDE RECORDS SUMMARY | 2025-01-31 09:35 | XMS_ITS | Clinical Summary ---
Author Organization [facility] Address [address] 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
[2025-01-31 09:38] LABS: Hematocrit 38.6 % (36.0-48.0); Hemoglobin 12.8 g/dL (12.0-16.0); Immature Granulocytes Abs Auto 0.02 10^3/uL (0.00-0.03); Immature Granulocytes Pct Auto 0.3 % (0.0-0.5); Lymphocytes Absolute Auto 2.0 10^3/uL (1.2-3.8); Mean Corpuscular HGB Conc 33.2 g/dL (29.9-35.2); Mean Corpuscular Hemoglobin 31.6 pg (26.7-34.0); Mean Corpuscular Volume 95.3 fL (81.0-99.0); Platelet Count 355 10^3/uL (150-450); Red Blood Count 4.05 10^6/uL (4.20-5.40); White Blood Count 7.7 10^3/uL (4.0-11.0)
[2025-01-31] MEDS: HYDROMORPHONE HCL 1 MG/ML CARTRIDGE 0.5 MG IVP (09:38)
[2025-01-31] MEDS: 0.9 % SODIUM CHLORIDE 1,000 ML 999 ML IV (09:38)
[2025-01-31 09:47] LABS: Anion Gap 19.6; Blood Urea Nitrogen 16.0 mg/dL (7.0-18.0); Calcium 10.1 mg/dL (8.5-10.1); Carbon Dioxide 25.4 mmol/L (21.0-32.0); Chloride 103 mmol/L (98-107); Estimated GFR (African America >60 (>=60 mL/min/1.73m^2); Estimated GFR (Non-African Ame 58 (>=60 mL/min/1.73m^2); Glucose 172 mg/dL (74-106); Potassium 4.0 mmol/L (3.5-5.1); Sodium 144 mmol/L (136-145)
--- NOTE | 2025-01-31 09:48 | ED.GENADUL1 ---
HPI HPI - General Adult General Chief complaint: Urogenital-Female Stated complaint: L FLANK PAIN KIDNEY STONE Time Seen by Provider: 01/31/25 09:22 Source: patient Mode of arrival: Wheelchair Limitations: no limitations History of Present Illness HPI narrative: 79-year-old female to the emergency department with chief complaint of left-sided flank pain. She reports the pain began suddenly at 3:15 AM. She reports is a sharp pain radiates into her left lower quadrant. It is similar to past kidney stones. She follows with Dr. Jackson, urology. She has not had a recent kidney stone. She has required lithotripsy and stent placement in the past. She reports chills without fever. She reports nausea without vomiting. Pain is currently a 04/22. Past medical history: Diabetes, atrial fibrillation Related Data Home Medications ?Medication ?Instructions ?Recorded ?Confirmed acarbose 100 mg tablet 100 mg PO TID 08/13/23 01/31/25 acetaminophen 500 mg capsule 1,000 mg PO BID PRN pain 08/13/23 01/31/25 albuterol sulfate 90 mcg/actuation 2 inh inhalation Q6H PRN shortness 08/13/23 01/31/25 aerosol inhaler (Ventolin HFA) of breath or wheezing ascorbic acid 90 mg-zinc oxide 50 1 cap PO DAILY 08/13/23 01/31/25 mg capsule calcium citrate 200 mg PO TID 08/13/23 01/31/25 cholecalciferol (vitamin D3) 125 5,000 unit PO DAILY 08/13/23 01/31/25 mcg (5,000 unit) capsule cinnamon bark 500 mg capsule 1,000 mg PO DAILY 08/13/23 01/31/25 (Cinnamon) esomeprazole magnesium 20 mg 20 mg PO DAILY 08/13/23 01/31/25 tablet,delayed release golimumab 12.5 mg/mL intravenous IV 08/13/23 solution (Simponi ARIA) iron bisglycinate chelate 30 mg PO DAILY 08/13/23 01/31/25 mecobalamin (vitamin B12) 1,000 1,000 mcg PO DAILY 08/13/23 01/31/25 mcg chewable tablet (B12 Active) metformin 1,000 mg tablet 1,000 mg PO BID 08/13/23 01/31/25 methotrexate sodium 25 mg/mL 5 mg IM QWEEK 08/13/23 01/31/25 injection solution warfarin 3 mg tablet 4 mg PO DAILY 08/13/23 01/31/25 prednisone 5 mg tablet 5 mg PO DAILY 01/31/25 01/31/25 Allergies Allergy/AdvReac Type Severity Reaction Status Date / Time ciprofloxacin (From Cipro) Allergy Severe Verified 07/15/23 12:51 Latex, Natural Rubber Allergy Severe Verified 07/15/23 12:51 metronidazole (From Metrogel) Allergy Severe Verified 07/15/23 12:51 NSAIDS (Non-Steroidal Allergy Severe Swelling Verified 07/15/23 12:51 Anti-Inflamma of Lip/Tongue/Throat Sulfa (Sulfonamide Allergy Severe Verified 07/15/23 12:51 Antibiotics) ketorolac (From Toradol) AdvReac Severe Nausea Verified 07/15/23 12:51 pioglitazone (From Actos) AdvReac Severe Nausea Verified 07/15/23 12:51 Opioid HPI Opioid Management Most Recent Opioid Data: Last Pain Scale 10 Today, 09:59 Last MAR Pain Assessment Today, 09:38 Review of Systems ROS Status of ROS 10 or more systems reviewed and unremarkable except as noted in history and below [facility] Medical History (Updated 01/31/25 @ 14:27 by Stoney Cole MD) S/P extracorporeal shock wave therapy ?Z98.890 - Other specified postprocedural states (ICD-10) Anemia ?D64.9 - Anemia, unspecified (ICD-10) COVID-19 ?U07.1 - COVID-19 (ICD-10) GERD (gastroesophageal reflux disease) ?K21.9 - Gastro-esophageal reflux disease without esophagitis (ICD-10) Diabetes ?E11.9 - Type 2 diabetes mellitus without complications (ICD-10) Atrial fibrillation ?I48.91 - Unspecified atrial fibrillation (ICD-10) Psoriatic arthritis ?L40.50 - Arthropathic psoriasis, unspecified (ICD-10) Uterine cancer ?C55 - Malignant neoplasm of uterus, part unspecified (ICD-10) COPD exacerbation (07/2023) ?J44.1 - Chronic obstructive pulmonary disease with (acute) exacerbation (ICD-10) RSV (respiratory syncytial virus infection) (07/2023) ?B33.8 - Other specified viral diseases (ICD-10) Lung mass ?R91.8 - Other nonspecific abnormal finding of lung field (ICD-10) Surgical History (Updated 08/13/23 @ 14:04 by Anitha Moctezuma NP) S/P cystoscopy ?Z98.890 - Other specified postprocedural states (ICD-10) H/O ureteroscopy ?Z98.890 - Other specified postprocedural states (ICD-10) S/P ureteral stent placement ?Z96.0 - Presence of urogenital implants (ICD-10) History of colonoscopy ?Z98.890 - Other specified postprocedural states (ICD-10) History of appendectomy ?Z90.49 - Acquired absence of other specified parts of digestive tract (ICD-10) History of tonsillectomy ?Z90.89 - Acquired absence of other organs (ICD-10) S/P cataract extraction and insertion of intraocular lens ?Z98.49 - Cataract extraction status, unspecified eye (ICD-10) ?Z96.1 - Presence of intraocular lens (ICD-10) History of lobectomy of lung ?Z90.2 - Acquired absence of lung [part of] (ICD-10) History of hysterectomy ?Z90.710 - Acquired absence of both cervix and uterus (ICD-10) Family History (Updated 08/13/23 @ 14:04 by Anitha Moctezuma NP) Other Family history of heart disease Family history of myocardial infarction Family history of stroke Social History (Updated 08/14/23 @ 08:15 by Isabel Geller) Within the past year, how often did you have a drink containing alcohol: never Score interpretation: A score less than 3 is consistent with normal alcohol consumption. Smoking status: Former smoker Non-prescribed substance use: denies use Previous occupational history: RETIRED Highest level of school completed/degree received: high school graduate Little interest or pleasure in doing things: not at all Feeling down, depressed, or hopeless: not at all Exam Narrative Exam Narrative: VITALS: I have reviewed the triage vital signs. GENERAL: Uncomfortable appearing adult female holding her left flank NEURO: Alert and oriented. Moves all extremities. Face is symmetric and expressive. EYES: PERRL. No scleral icterus or conjunctival injection. No discharge. HENT: Normocephalic, atraumatic. Hearing is grossly intact. Nares grossly patent and without discharge. Mucous membranes moist. NECK: No JVD. Patient moves neck without restriction. CARDIO: Rhythm regular. Normal rate. No murmur, rub, or gallop. Pulses equal bilaterally in the upper and lower extremity. No lower extremity edema. PULM: Lungs clear to auscultation in all flynn. No wheezes, rales, or rhonchi. No conversational dyspnea. No splinting, stridor, or accessory muscle use. GI/: Abdomen is soft and non-tender. Normoactive bowel sounds. EXTREMITIES: Symmetric muscle bulk. No joint swelling. No clubbing, cyanosis, or deformity. SKIN: Warm and dry. Normal turgor. No rash or lesions appreciated. PSYCH: Mood, affect, and interaction is appropriate to the setting. Constitutional Vital Signs, click to edit/add: Last Vital Signs Temp 98.0 F 01/31/25 09:21 Pulse 72 01/31/25 13:29 Resp 18 01/31/25 13:29 BP 130/81 01/31/25 13:29 Pulse Ox 99 01/31/25 13:29 O2 Del Method Room Air 01/31/25 13:29 Course Vital Signs Vital signs: Vital Signs Temperature 98.0 F 01/31/25 09:21 Pulse Rate 78 01/31/25 09:21 Respiratory Rate 18 01/31/25 09:21 Blood Pressure 142/90 H 01/31/25 09:21 Pulse Oximetry 100 01/31/25 09:21 Oxygen Delivery Method Room Air 01/31/25 09:21 Temperature 98.0 F 01/31/25 09:21 Pulse Rate 72 01/31/25 13:29 Respiratory Rate 18 01/31/25 13:29 Blood Pressure 130/81 01/31/25 13:29 Pulse Oximetry 99 01/31/25 13:29 Oxygen Delivery Method Room Air 01/31/25 13:29 Medical Decision Making MDM Narrative Medical decision making narrative: 79-year-old female to the emergency department chief complaint of left flank pain. Vital stable, the patient is afebrile. Basic labs, CT of the pelvis without contrast for kidney stone, urinalysis are ordered. Dilaudid and Zofran are ordered for symptom control. 1 L of fluids ordered to help flush out suspected kidney stone. Patient agrees with this plan. Patient does have a 6.5 left-sided proximal obstructing kidney stone. Lactate is elevated likely sympathetic from pain. Kidney function is normal. No white blood cell count. Urine does not appear infected. Case was discussed with her urologist Dr. Jackson. Plan for admission and stent this evening. NPO. Strain urine. Case discussed with hospitalist who agrees admit this patient to his service. Medical Records Medical records reviewed: Yes I reviewed the patient's medical records Lab Data Lab results reviewed: Yes I reviewed the patient's lab results Labs: Lab Results 01/31/25 01/31/25 01/31/25 Range/Units 09:30 10:43 12:13 WBC 7.7 (4.0-11.0) 10^3/uL RBC 4.05 L (4.20-5.40) 10^6/uL Hgb 12.8 (12.0-16.0) g/dL Hct 38.6 (36.0-48.0) % MCV 95.3 (81.0-99.0) fL MCH 31.6 (26.7-34.0) pg MCHC 33.2 (29.9-35.2) g/dL RDW 14.1 (11.0-15.0) % Plt Count 355 (150-450) 10^3/uL MPV 8.6 L (9.5-13.5) fL Neut % (Auto) 67.7 (43.0-75.0) % Lymph % (Auto) 26.0 (20.5-60.0) % [place] % (Auto) 5.2 (1.7-12.0) % Eos % (Auto) 0.4 L (0.9-7.0) % Baso % (Auto) 0.4 (0.2-2.0) % Neut # (Auto) 5.2 (1.4-6.5) 10^3/uL Lymph # (Auto) 2.0 (1.2-3.8) 10^3/uL [place] # (Auto) 0.4 (0.3-0.8) 10^3/uL Eos # (Auto) 0.0 (0.0-0.7) 10^3/uL Baso # (Auto) 0.0 (0.0-0.1) 10^3/uL Abs Immat Gran (auto) 0.02 (0.00-0.03) 10^3/uL Imm/Tot Granulo (auto) 0.3 (0.0-0.5) % PT 17.9 H (9.0-11.6) sec INR 1.79 Sodium 144 (136-145) mmol/L Potassium 4.0 (3.5-5.1) mmol/L Chloride 103 (98-107) mmol/L Carbon Dioxide 25.4 (21.0-32.0) mmol/L Anion Gap 19.6 BUN 16.0 (7.0-18.0) mg/dL Creatinine 0.93 (0.55-1.02) mg/dL Est GFR ( Amer) >60 (>=60 mL/min/1.73m^2) Est GFR (Non-Af Amer) 58 L (>=60 mL/min/1.73m^2) BUN/Creatinine Ratio 17.2 Glucose 172 H (74-106) mg/dL Lactate 4.9 H* 1.3 (0.4-2.0) mmol/L Calcium 10.1 (8.5-10.1) mg/dL Urine Color Lt. yellow (YELLOW) Urine Clarity Clear (CLEAR) Urine pH 7.5 (5.0-9.0) Ur Specific [place] 1.015 (1.005-1.025) Urine Protein Negative (NEG/TRACE) mg/dL Urine Glucose (UA) Negative (NEGATIVE) mg/dL Urine Ketones >=80 A (NEGATIVE) mg/dL Urine Occult Blood Moderate A (NEGATIVE) Urine Nitrite Negative (NEGATIVE) Urine Bilirubin Negative (NEGATIVE) Urine Urobilinogen 0.2 (0.2-1.0) EU/dL Ur Leukocyte Esterase Negative (NEGATIVE) Urine RBC 20-50 A (0-2) #/HPF Urine WBC None seen (NONE SEEN) #/HPF Ur Squamous Epith Cells Rare (NONE/RARE) #/LPF Urine Crystals Seen A (None Seen) #/HPF Calcium Oxalate Crystal Rare Urine Bacteria Trace A (NONE SEEN) #/HPF Urine Casts None seen (NONE SEEN) #/LPF Urine Mucus Trace A (NONE SEEN) Ur Culture Indicated? No Imaging Data CT scan - abdomen: Attestation: I have reviewed the pertinent imaging results. Radiologist's impression: ITS Impressions Abdomen/Pelvis CT 01/31/25 09:29 IMPRESSION: Bilateral nephrolithiasis with a 6.5 mm obstructing stone proximal left ureter. Impression dictated by: Kevan Zhou Jr., D.O. 01/31/2025 10:46 AM Dictation Location[facility] Electronically authenticated by: [id number] Y Date: 01/31/2025 10:46 Discharge Plan Discharge Chief Complaint: Urogenital-Female Clinical Impression: Kidney stone Patient Disposition: Admitted As Inpatient Time of Disposition Decision: 14:27 Condition: Fair Discharge Date/Time: 01/31/25 13:29
[2025-01-31 09:57] LABS: Lactate/Lactic Acid 4.9 mmol/L (0.4-2.0)
[2025-01-31] MEDS: HYDROMORPHONE HCL 0.5 MG/0.5 ML SYRINGE IV (09:59)
[2025-01-31 10:12] LABS: INR 1.79; Prothrombin Time 17.9 sec (9.0-11.6)
[2025-01-31 11:05] LABS: Glucose Urine UA NEGATIVE (NEGATIVE)
[2025-01-31 11:22] LABS: Cast Seen? NONE SEEN #/LPF (NONE SEEN); Crystals Seen? Seen #/HPF (None Seen); Urine Culture Indicated NO
[2025-01-31 12:35] LABS: Lactate/Lactic Acid 1.3 mmol/L (0.4-2.0)
--- NOTE | 2025-01-31 14:06 | PM.IMHP1 ---
Internal Medicine - H&P: HPI History of Present Illness Chief complaint: L FLANK PAIN KIDNEY STONE, KIDNEY STONE Narrative: This is a 79 y.o female with past medical Hx of type 2 diabetes, GERD, atiral fibrillation, psoriatic arthritis, uterine cancer, COPD, lung mass, renal stones s/p multiple lithotripsy, here for left flank pain that started earlier 4 am. hx obtained from ED staff and pt at bedside. pt states that symptoms started earlier 3:50 am, left flank pain 10/10 intensity continuous, woke her up in am. No fever or chills, she reports nausea and dry heaves but no vomiting. She had multiple admissions for renal stones and lithotripsy. She came in to the ED, and was found to have bilateral nephrolithiasis with a 6.5 mm obstructing stone in the proximal left ureter. Labs did not show leukocytosis, UA was negative for UTI. Pt received 1 dose of Zofran 4 mg IV once, and 1 liter bolus NS, and total of 1 mg hydromorphone IV. ED contacted urology Dr. Jackson, who will come today and perform an urgent lithotripsy. Review of Systems ROS Status of ROS 10 or more systems reviewed and unremarkable except as noted in history and below [facility] Medical History (Updated 08/13/23 @ 14:04 by Anitha Moctezuma NP) S/P extracorporeal shock wave therapy ?Z98.890 - Other specified postprocedural states (ICD-10) Anemia ?D64.9 - Anemia, unspecified (ICD-10) COVID-19 ?U07.1 - COVID-19 (ICD-10) GERD (gastroesophageal reflux disease) ?K21.9 - Gastro-esophageal reflux disease without esophagitis (ICD-10) Diabetes ?E11.9 - Type 2 diabetes mellitus without complications (ICD-10) Atrial fibrillation ?I48.91 - Unspecified atrial fibrillation (ICD-10) Psoriatic arthritis ?L40.50 - Arthropathic psoriasis, unspecified (ICD-10) Uterine cancer ?C55 - Malignant neoplasm of uterus, part unspecified (ICD-10) COPD exacerbation (07/2023) ?J44.1 - Chronic obstructive pulmonary disease with (acute) exacerbation (ICD-10) RSV (respiratory syncytial virus infection) (07/2023) ?B33.8 - Other specified viral diseases (ICD-10) Lung mass ?R91.8 - Other nonspecific abnormal finding of lung field (ICD-10) Surgical History (Updated 08/13/23 @ 14:04 by Anitha Moctezuma NP) S/P cystoscopy ?Z98.890 - Other specified postprocedural states (ICD-10) H/O ureteroscopy ?Z98.890 - Other specified postprocedural states (ICD-10) S/P ureteral stent placement ?Z96.0 - Presence of urogenital implants (ICD-10) History of colonoscopy ?Z98.890 - Other specified postprocedural states (ICD-10) History of appendectomy ?Z90.49 - Acquired absence of other specified parts of digestive tract (ICD-10) History of tonsillectomy ?Z90.89 - Acquired absence of other organs (ICD-10) S/P cataract extraction and insertion of intraocular lens ?Z98.49 - Cataract extraction status, unspecified eye (ICD-10) ?Z96.1 - Presence of intraocular lens (ICD-10) History of lobectomy of lung ?Z90.2 - Acquired absence of lung [part of] (ICD-10) History of hysterectomy ?Z90.710 - Acquired absence of both cervix and uterus (ICD-10) Family History (Updated 08/13/23 @ 14:04 by Anitha Moctezuma NP) Other Family history of heart disease Family history of myocardial infarction Family history of stroke Social History (Updated 08/14/23 @ 08:15 by Isabel Geller) Within the past year, how often did you have a drink containing alcohol: never Score interpretation: A score less than 3 is consistent with normal alcohol consumption. Smoking status: Former smoker Non-prescribed substance use: denies use Previous occupational history: RETIRED Highest level of school completed/degree received: high school graduate Little interest or pleasure in doing things: not at all Feeling down, depressed, or hopeless: not at all Meds Home Medications and Allergies Home Medications ?Medication ?Instructions ?Recorded ?Confirmed ?Type acarbose 100 mg tablet 100 mg PO TID 08/13/23 01/31/25 History acetaminophen 500 mg capsule 1,000 mg PO BID PRN pain 08/13/23 01/31/25 History albuterol sulfate 90 mcg/actuation 2 inh inhalation Q6H PRN shortness 08/13/23 01/31/25 History aerosol inhaler (Ventolin HFA) of breath or wheezing ascorbic acid 90 mg-zinc oxide 50 1 cap PO DAILY 08/13/23 01/31/25 History mg capsule calcium citrate 200 mg PO TID 08/13/23 01/31/25 History cholecalciferol (vitamin D3) 125 5,000 unit PO DAILY 08/13/23 01/31/25 History mcg (5,000 unit) capsule cinnamon bark 500 mg capsule 1,000 mg PO DAILY 08/13/23 01/31/25 History (Cinnamon) esomeprazole magnesium 20 mg 20 mg PO DAILY 08/13/23 01/31/25 History tablet,delayed release golimumab 12.5 mg/mL intravenous IV 08/13/23 History solution (Simponi ARIA) iron bisglycinate chelate 30 mg PO DAILY 08/13/23 01/31/25 History mecobalamin (vitamin B12) 1,000 1,000 mcg PO DAILY 08/13/23 01/31/25 History mcg chewable tablet (B12 Active) metformin 1,000 mg tablet 1,000 mg PO BID 08/13/23 01/31/25 History methotrexate sodium 25 mg/mL 5 mg IM QWEEK 08/13/23 01/31/25 History injection solution warfarin 3 mg tablet 4 mg PO DAILY 08/13/23 01/31/25 History prednisone 5 mg tablet 5 mg PO DAILY 01/31/25 01/31/25 History Allergies Allergy/AdvReac Type Severity Reaction Status Date / Time ciprofloxacin (From Cipro) Allergy Severe Verified 07/15/23 12:51 Latex, Natural Rubber Allergy Severe Verified 07/15/23 12:51 metronidazole (From Metrogel) Allergy Severe Verified 07/15/23 12:51 NSAIDS (Non-Steroidal Allergy Severe Swelling Verified 07/15/23 12:51 Anti-Inflamma of Lip/Tongue/Throat Sulfa (Sulfonamide Allergy Severe Verified 07/15/23 12:51 Antibiotics) ketorolac (From Toradol) AdvReac Severe Nausea Verified 07/15/23 12:51 pioglitazone (From Actos) AdvReac Severe Nausea Verified 07/15/23 12:51 Exam Narrative Exam Narrative: GENERAL: In pain, not in acute distress, pleasant and cooperative NEURO: Alert and oriented. Moves all extremities. Face is symmetric and expressive EYES: PERRL. No scleral icterus or conjunctival injection HENT: Normocephalic, atraumatic. Hearing is grossly intact. Nares grossly patent and without discharge. Mucous membranes moist CARDIO: Rhythm regular. Normal rate. No murmur, rub, or gallop. Pulses equal bilaterally in the upper and lower extremity. No lower extremity edema PULM: Lungs clear to auscultation in all flynn. No wheezes, rales, or rhonchi. No conversational dyspnea. No splinting, stridor, or accessory muscle use GI/: Abdomen is soft and non-tender. Normoactive bowel sounds, +ve Left CVA EXTREMITIES: Symmetric muscle bulk. No joint swelling. No clubbing, cyanosis, or deformity SKIN: Warm and dry. Normal turgor. No rash or lesions appreciated Constitutional Vital Signs, click to edit/add: Last Vital Signs Temp 98.0 F 01/31/25 09:21 Pulse 72 01/31/25 13:29 Resp 18 01/31/25 13:29 BP 130/81 01/31/25 13:29 Pulse Ox 99 01/31/25 13:29 O2 Del Method Room Air 01/31/25 13:29 Internal Medicine - H&P: Reslt Labs Labs: Short CBC 01/31/25 Range/Units 09:30 WBC 7.7 (4.0-11.0) 10^3/uL Hgb 12.8 (12.0-16.0) g/dL Hct 38.6 (36.0-48.0) % Plt Count 355 (150-450) 10^3/uL BMP 01/31/25 09:30 Sodium 144 Potassium 4.0 Chloride 103 Carbon Dioxide 25.4 BUN 16.0 Creatinine 0.93 Glucose 172 H Calcium 10.1 Urine 01/31/25 Range/Units 10:43 Urine Color Lt. yellow (YELLOW) Urine Clarity Clear (CLEAR) Urine pH 7.5 (5.0-9.0) Ur Specific [place] 1.015 (1.005-1.025) Urine Protein Negative (NEG/TRACE) mg/dL Urine Glucose (UA) Negative (NEGATIVE) mg/dL Assessment and Plan Assessment and Plan (1) Calculus of kidney: (2) S/P extracorporeal shock wave therapy: Plan Left flank pain, secondary to Renal colic from an obstructive left proximal ureteral stone Lactic acidosis in the setting of dehydration and pain -Observe pt in medical floor -Start hydromorphone 0.5 mg q2 hours PRN -Start NS 100 ml/hr for a total of 1 liter -Start compazine 5 mg q4 hours PRN -NPO for now -Expected to get an urgent lithotripsy by urology for now -Discussed the plan with the pt in details -I reconciled the pt's medications after reviewing the list
[2025-01-31] MEDS: 0.9 % SODIUM CHLORIDE 1,000 ML 1000 ML IV (14:44)
[2025-01-31] MEDS: HYDROMORPHONE HCL 0.5 MG/0.5 ML SYRINGE IVP ×2 (14:45→18:08)
[2025-01-31] MEDS: CEFAZOLIN SODIUM 2 GM/50 ML D5W PREMIX IV (16:12)
--- NOTE | 2025-01-31 16:18 | PM.URCN ---
Urology - CN: HPI Date of Consult Consult date: 01/31/25 Requesting Physician: Reinaldo Munson Primary Care Provider: FAYE PEREZ Consult Narrative Narrative: THis 79 year old female with a positive urolithiasis history presents with left flank pain, sudden onset. Severe in nature. No fever, no chills, no blood or clots in urine. Presents to ER , where CT scan shows 6.5 mm left ureteral calculus with hydronephrosis. Small bilateral renal stones present. Pain was severe, and being admitted for pain control. Stone located high in the left ureter. The entire PMH,PSH,ROS, family and social history, meds, and allergies are as noted in the admission H and P performed by Dr. Munson earlier today and is unchanged. cc:: CC: Reinaldo Munson [facility] Medical History (Updated 01/31/25 @ 16:22 by Williams Jackson MD) S/P extracorporeal shock wave therapy ?Z98.890 - Other specified postprocedural states (ICD-10) Anemia ?D64.9 - Anemia, unspecified (ICD-10) COVID-19 ?U07.1 - COVID-19 (ICD-10) GERD (gastroesophageal reflux disease) ?K21.9 - Gastro-esophageal reflux disease without esophagitis (ICD-10) Diabetes ?E11.9 - Type 2 diabetes mellitus without complications (ICD-10) Atrial fibrillation ?I48.91 - Unspecified atrial fibrillation (ICD-10) Psoriatic arthritis ?L40.50 - Arthropathic psoriasis, unspecified (ICD-10) Uterine cancer ?C55 - Malignant neoplasm of uterus, part unspecified (ICD-10) COPD exacerbation (07/2023) ?J44.1 - Chronic obstructive pulmonary disease with (acute) exacerbation (ICD-10) RSV (respiratory syncytial virus infection) (07/2023) ?B33.8 - Other specified viral diseases (ICD-10) Lung mass ?R91.8 - Other nonspecific abnormal finding of lung field (ICD-10) Surgical History (Updated 08/13/23 @ 14:04 by Anitha Moctezuma NP) S/P cystoscopy ?Z98.890 - Other specified postprocedural states (ICD-10) H/O ureteroscopy ?Z98.890 - Other specified postprocedural states (ICD-10) S/P ureteral stent placement ?Z96.0 - Presence of urogenital implants (ICD-10) History of colonoscopy ?Z98.890 - Other specified postprocedural states (ICD-10) History of appendectomy ?Z90.49 - Acquired absence of other specified parts of digestive tract (ICD-10) History of tonsillectomy ?Z90.89 - Acquired absence of other organs (ICD-10) S/P cataract extraction and insertion of intraocular lens ?Z98.49 - Cataract extraction status, unspecified eye (ICD-10) ?Z96.1 - Presence of intraocular lens (ICD-10) History of lobectomy of lung ?Z90.2 - Acquired absence of lung [part of] (ICD-10) History of hysterectomy ?Z90.710 - Acquired absence of both cervix and uterus (ICD-10) Family History (Updated 08/13/23 @ 14:04 by Anitha Moctezuma NP) Other Family history of heart disease Family history of myocardial infarction Family history of stroke Social History (Updated 01/31/25 @ 14:35 by Cassia Schwab) Within the past year, how often did you have a drink containing alcohol: never Score interpretation: A score less than 3 is consistent with normal alcohol consumption. Smoking status: Former smoker Do you use any of these nicotine containing products: vaping products Non-prescribed substance use: denies use and cannabis (any form) Non-prescribed substance use details: THC use daily Previous occupational history: RETIRED Known occupational exposures/hazards: No Highest level of school completed/degree received: high school graduate Are you now , , , , never or living with a partner: In a typical week, how many times do you talk on the telephone with family, friends, or neighbors: 3 or more times per week How often do you get together with friends or relatives: 3 or more times per week How often do you attend evangelical or gnosticism services: never Do you belong to any clubs or organizations such as evangelical groups unions, fraternal or athletic groups, or school groups: no Total score: 1 Score interpretation: A score of less than or equal to 1 indicates the most socially isolated. Little interest or pleasure in doing things: not at all Feeling down, depressed, or hopeless: not at all Feel stressed/tense/nervous/anxious/difficulty sleeping: not at all Due to disability, difficulty making decisions: No Do you think of yourself as: straight/heterosexual Gender Identity: female Meds Home Medications and Allergies Home Medications ?Medication ?Instructions ?Recorded ?Confirmed ?Type acarbose 100 mg tablet 100 mg PO TID 08/13/23 01/31/25 History acetaminophen 500 mg capsule 1,000 mg PO BID PRN pain 08/13/23 01/31/25 History albuterol sulfate 90 mcg/actuation 2 inh inhalation Q6H PRN shortness 08/13/23 01/31/25 History aerosol inhaler (Ventolin HFA) of breath or wheezing ascorbic acid 90 mg-zinc oxide 50 1 cap PO DAILY 08/13/23 01/31/25 History mg capsule calcium citrate 200 mg PO TID 08/13/23 01/31/25 History cholecalciferol (vitamin D3) 125 5,000 unit PO DAILY 08/13/23 01/31/25 History mcg (5,000 unit) capsule cinnamon bark 500 mg capsule 1,000 mg PO DAILY 08/13/23 01/31/25 History (Cinnamon) esomeprazole magnesium 20 mg 20 mg PO DAILY 08/13/23 01/31/25 History tablet,delayed release golimumab 12.5 mg/mL intravenous IV 08/13/23 History solution (Simponi ARIA) iron bisglycinate chelate 30 mg PO DAILY 08/13/23 01/31/25 History mecobalamin (vitamin B12) 1,000 1,000 mcg PO DAILY 08/13/23 01/31/25 History mcg chewable tablet (B12 Active) metformin 1,000 mg tablet 1,000 mg PO BID 08/13/23 01/31/25 History methotrexate sodium 25 mg/mL 5 mg IM QWEEK 08/13/23 01/31/25 History injection solution warfarin 3 mg tablet 4 mg PO DAILY 08/13/23 01/31/25 History prednisone 5 mg tablet 5 mg PO DAILY 01/31/25 01/31/25 History Allergies Allergy/AdvReac Type Severity Reaction Status Date / Time ciprofloxacin (From Cipro) Allergy Severe Verified 07/15/23 12:51 Latex, Natural Rubber Allergy Severe Verified 07/15/23 12:51 metronidazole (From Metrogel) Allergy Severe Verified 07/15/23 12:51 NSAIDS (Non-Steroidal Allergy Severe Swelling Verified 07/15/23 12:51 Anti-Inflamma of Lip/Tongue/Throat Sulfa (Sulfonamide Allergy Severe Verified 07/15/23 12:51 Antibiotics) ketorolac (From Toradol) AdvReac Severe Nausea Verified 07/15/23 12:51 pioglitazone (From Actos) AdvReac Severe Nausea Verified 07/15/23 12:51 Exam Narrative Exam Narrative: HEENT normal Heart, RRR Lung clear Abd: soft, NT, negative peritoneal signs : moderate left flank discomfort. Neuro: no deficits Constitutional Vital Signs, click to edit/add: Last Vital Signs Temp 98.4 F 01/31/25 13:48 Pulse 85 01/31/25 13:48 Resp 16 01/31/25 14:47 BP 113/66 01/31/25 13:48 Pulse Ox 100 01/31/25 14:47 O2 Del Method Room Air 01/31/25 14:47 Results Labs Labs: Short CBC 01/31/25 Range/Units 09:30 WBC 7.7 (4.0-11.0) 10^3/uL Hgb 12.8 (12.0-16.0) g/dL Hct 38.6 (36.0-48.0) % Plt Count 355 (150-450) 10^3/uL BMP 01/31/25 09:30 Sodium 144 Potassium 4.0 Chloride 103 Carbon Dioxide 25.4 BUN 16.0 Creatinine 0.93 Glucose 172 H Calcium 10.1 Urine 01/31/25 Range/Units 10:43 Urine Color Lt. yellow (YELLOW) Urine Clarity Clear (CLEAR) Urine pH 7.5 (5.0-9.0) Ur Specific Sesser 1.015 (1.005-1.025) Urine Protein Negative (NEG/TRACE) mg/dL Urine Glucose (UA) Negative (NEGATIVE) mg/dL Urology Assessment and Plan Assessment and Plan (1) Calculus of kidney: (2) Hydronephrosis with ureteral calculus: (3) Anticoagulation adequate: Plan Discussed option with the patient. Her stone is high in the left ureter. Plan for today is cysto, left RGP, left JJ stent. May need further intervention with either ESWL or ureteroscopic approach in the near future, after the ureter has a chance to dilate with indwelling stent. Antibiotic prophylaxis given pre-op (Anceg, 2g) Discussed possibility of stent discomfort. She wishes to proceedl.
[2025-01-31] MEDS: IOHEXOL 300 MG/ML - 50 ML BTL INJ (16:34)
[2025-01-31] MEDS: WARFARIN SODIUM 4 MG TABLET PO (17:32)
[2025-01-31] MEDS: HYOSCYAMINE SULFATE 0.125 MG TAB.SUBL SL (21:23)
[2025-01-31] MEDS: 0.9 % SODIUM CHLORIDE 1,000 ML 100 ML IV (21:28)
[2025-02-01] VITALS (8 sets, daily range): BP systolic 89–95; BP diastolic 47–58; PULSE 64–77; TEMP 36.8–36.9; O2SAT 94–97
[2025-02-01] MEDS: PANTOPRAZOLE SODIUM 40 MG TABLET.DR 20 MG PO (05:38)
[2025-02-01] MEDS: HYOSCYAMINE SULFATE 0.125 MG TAB.SUBL SL (05:38)
[2025-02-01 06:15] LABS: Hematocrit 31.8 % (36.0-48.0); Hemoglobin 10.3 g/dL (12.0-16.0); Immature Granulocytes Abs Auto 0.03 10^3/uL (0.00-0.03); Immature Granulocytes Pct Auto 0.4 % (0.0-0.5); Lymphocytes Absolute Auto 2.3 10^3/uL (1.2-3.8); Mean Corpuscular HGB Conc 32.4 g/dL (29.9-35.2); Mean Corpuscular Hemoglobin 30.9 pg (26.7-34.0); Mean Corpuscular Volume 95.5 fL (81.0-99.0); Platelet Count 256 10^3/uL (150-450); Red Blood Count 3.33 10^6/uL (4.20-5.40); White Blood Count 7.6 10^3/uL (4.0-11.0)
[2025-02-01 06:39] LABS: Alanine Aminotransferase 18 U/L (14-59); Albumin Globulin Ratio 1.3; Albumin Level 3.2 g/dL (3.4-5.0); Alkaline Phosphatase 33 U/L (46-116); Anion Gap 13.7; Aspartate Amino Transferase 14 U/L (15-37); Blood Urea Nitrogen 10.0 mg/dL (7.0-18.0); Calcium 7.8 mg/dL (8.5-10.1); Carbon Dioxide 25.1 mmol/L (21.0-32.0); Chloride 112 mmol/L (98-107); Estimated GFR (African America >60 (>=60 mL/min/1.73m^2); Estimated GFR (Non-African Ame >60 (>=60 mL/min/1.73m^2); Globulin 2.4 g/dL; Glucose 103 mg/dL (74-106); Magnesium 1.6 mg/dL (1.8-2.4); Potassium 3.8 mmol/L (3.5-5.1); Sodium 147 mmol/L (136-145); Total Protein 5.6 g/dL (6.4-8.2)
[2025-02-01] MEDS: DOCUSATE SODIUM 100 MG CAPSULE PO (09:06)
[2025-02-01] MEDS: PREDNISONE 5 MG TABLET PO (09:06)
--- NOTE | 2025-02-01 09:33 | SWNOTE1 ---
SW and I stopped in pt's room to discuss potential d/c needs. Pt is from home and she lives alone. She does not use any DME, she is independent. Pt voiced she has good support between family and neighbors. She does not have any services coming into the home. Pt did ask if we help with transportation at d/c. She voiced her children and grandchildren would be able unable to transport her. SW did tell pt that we could set her up with [facility] if needed. Pt voiced understanding. Pt voiced she does not have any concerns for when she goes home. SW to follow as needed.
--- NOTE | 2025-02-01 09:45 | CM.NOTE ---
Rounds made with Dr. Munson, pt will discharge to home today. Pt will f/u with urology and PCP.
[2025-02-01] MEDS: MAGNESIUM SULFATE/D5W 1 GM/100 ML PREMIX IV (11:17)
--- NOTE | 2025-02-01 11:29 | PM.DS1 ---
DS: Providers Provider Date of admission: 01/31/25 13:29 Primary care physician: FAYE PEREZ Consults: 01/31/25 Consult to Dietitian Routine Reason for consultation: weight loss/poor appetite 01/31/25 13:58 Consult to Urology Routine Consulting Provider: Williams Jackson Reason for consultation: Renal colic, for cystocopy today Discharging clinician: Reinlado Munson Anticipated date of discharge: 02/01/25 DS: Diagnosis Discharge Diagnosis (1) Calculus of kidney: (2) Hydronephrosis with ureteral calculus: (3) Anticoagulation adequate: DS: Summary Hospital Course Hospital Course: This is a 79 y.o female with past medical Hx of type 2 diabetes, GERD, atiral fibrillation, psoriatic arthritis, uterine cancer, COPD, lung mass, renal stones s/p multiple lithotripsy, here for left flank pain that started earlier 4 am. hx obtained from ED staff and pt at bedside. pt states that symptoms started earlier 3:50 am, left flank pain 10/10 intensity continuous, woke her up in am. No fever or chills, she reports nausea and dry heaves but no vomiting. She had multiple admissions for renal stones and lithotripsy. She came in to the ED, and was found to have bilateral nephrolithiasis with a 6.5 mm obstructing stone in the proximal left ureter. Labs did not show leukocytosis, UA was negative for UTI. Pt received 1 dose of Zofran 4 mg IV once, and 1 liter bolus NS, and total of 1 mg hydromorphone IV. ED contacted urology Dr. Jackson, who will come today and perform an urgent lithotripsy. Left flank pain, secondary to Renal colic from an obstructive left proximal ureteral stone Lactic acidosis in the setting of dehydration and pain -Observe pt in medical floor -Start hydromorphone 0.5 mg q2 hours PRN -Start NS 100 ml/hr for a total of 1 liter -Start compazine 5 mg q4 hours PRN -NPO for now -Expected to get an urgent lithotripsy by urology for now -Discussed the plan with the pt in details -I reconciled the pt's medications after reviewing the list Patient seen by urology the same day, underwent cystoscopy with left RGP left JJ stent. She underwent the procedure successfully. 02/01/2025 as per urology, patient cleared for discharge as she has no clots in her urine today and she does not have urinary retention. Discussed the plan with the patient she will have to follow-up with urology in the next few days. Also urology recommended to hold warfarin for 3 more days. Patient understands this plan of management. She will be discharged today. Time Spent with Patient Time attestation: Total time spent providing and/or coordinating discharge services: Exam Narrative Exam Narrative: GENERAL: Not in pain, not in acute distress, pleasant and cooperative NEURO: Alert and oriented. Moves all extremities. Face is symmetric and expressive EYES: PERRL. No scleral icterus or conjunctival injection HENT: Normocephalic, atraumatic. Hearing is grossly intact. Nares grossly patent and without discharge. Mucous membranes moist CARDIO: Rhythm regular. Normal rate. No murmur, rub, or gallop. Pulses equal bilaterally in the upper and lower extremity. No lower extremity edema PULM: Lungs clear to auscultation in all flynn. No wheezes, rales, or rhonchi. No conversational dyspnea. No splinting, stridor, or accessory muscle use GI/: Abdomen is soft and non-tender. Normoactive bowel sounds, no CVA tenderness EXTREMITIES: Symmetric muscle bulk. No joint swelling. No clubbing, cyanosis, or deformity SKIN: Warm and dry. Normal turgor. No rash or lesions appreciated Constitutional Vital Signs, click to edit/add: Last Vital Signs Temp 98.4 F 02/01/25 08:07 Pulse 73 02/01/25 10:00 Resp 16 02/01/25 08:07 BP 95/58 02/01/25 08:07 Pulse Ox 97 02/01/25 08:07 O2 Del Method Room Air 02/01/25 08:07 DS: Data Data Completed and Pending Labs on day of discharge: Labs from last 24 hours 02/01/25 01/31/25 01/31/25 06:00 20:00 17:15 WBC 7.6 RBC 3.33 L Hgb 10.3 L Hct 31.8 L MCV 95.5 MCH 30.9 MCHC 32.4 RDW 14.6 Plt Count 256 MPV 8.7 L Neut % (Auto) 61.5 Lymph % (Auto) 30.4 Vermilion % (Auto) 7.0 Eos % (Auto) 0.4 L Baso % (Auto) 0.3 Neut # (Auto) 4.7 Lymph # (Auto) 2.3 Vermilion # (Auto) 0.5 Eos # (Auto) 0.0 Baso # (Auto) 0.0 Abs Immat Gran (auto) 0.03 Imm/Tot Granulo (auto) 0.4 Sodium 147 H Potassium 3.8 Chloride 112 H Carbon Dioxide 25.1 Anion Gap 13.7 BUN 10.0 Creatinine 0.58 Est GFR ( Amer) >60 Est GFR (Non-Af Amer) >60 BUN/Creatinine Ratio 17.2 Glucose 103 Lactate Calcium 7.8 L Magnesium 1.6 L Total Bilirubin 0.4 AST 14 L ALT 18 Alkaline Phosphatase 33 L Total Protein 5.6 L Albumin 3.2 L Globulin 2.4 Albumin/Globulin Ratio 1.3 POC Glucose 153 H 95 01/31/25 01/31/25 15:33 12:13 WBC RBC Hgb Hct MCV MCH MCHC RDW Plt Count MPV Neut % (Auto) Lymph % (Auto) Vermilion % (Auto) Eos % (Auto) Baso % (Auto) Neut # (Auto) Lymph # (Auto) Vermilion # (Auto) Eos # (Auto) Baso # (Auto) Abs Immat Gran (auto) Imm/Tot Granulo (auto) Sodium Potassium Chloride Carbon Dioxide Anion Gap BUN Creatinine Est GFR ( Amer) Est GFR (Non-Af Amer) BUN/Creatinine Ratio Glucose Lactate 1.3 Calcium Magnesium Total Bilirubin AST ALT Alkaline Phosphatase Total Protein Albumin Globulin Albumin/Globulin Ratio POC Glucose 93 Discharge Plan Discharge Disposition: Home, Self-Care Condition: Good Discharge Medications: New docusate sodium 100 mg Capsule 100 mg PO BID PRN (Reason: Constipation) 10 Days Qty: 20 0RF Continued albuterol sulfate [Ventolin HFA] 90 mcg/actuation HFA aerosol inhaler 2 inh INHALATION Q6H PRN (Reason: shortness of breath or wheezing) metformin 1,000 mg tablet 1,000 mg PO BID acarbose 100 mg tablet 100 mg PO TID methotrexate sodium 25 mg/mL solution 5 mg IM QWEEK calcium citrate 200 mg (950 mg) tablet 200 mg PO TID iron bisglycinate chelate 28 mg iron capsule 30 mg PO DAILY cholecalciferol (vitamin D3) 125 mcg (5,000 unit) capsule 5,000 unit PO DAILY acetaminophen 500 mg capsule 1,000 mg PO BID PRN (Reason: pain) mecobalamin (vitamin B12) [B12 Active] 1,000 mcg tablet,chewable 1,000 mcg PO DAILY esomeprazole magnesium 20 mg tablet,delayed release (DR/EC) 20 mg PO DAILY Simponi ARIA 12.5 mg/mL solution IV prednisone 5 mg tablet 5 mg PO DAILY Held warfarin 3 mg tablet 4 mg PO DAILY Hold Instructions: Resume on 02/05/25. You had a stone removal by urology, Urology recommends you to hold on taking warfarin until 02/05/2025 Discontinued cinnamon bark [Cinnamon] 500 mg capsule 1,000 mg PO DAILY ascorbic acid-zinc oxide 90-50 mg capsule 1 cap PO DAILY Print Language: Thai Forms: Portal Instructions Follow Up Appointments: 02/08 @ 10:30am with Dr. Perez [address] [place] [address] [address], [place] [phone] Dr. Jackson's office (Urology) will call the patient to schedule a follow up appt. [phone]
--- NOTE | 2025-02-01 12:34 | SWNOTE1 ---
Medicare Outpatient Observation Notice reviewed and discussed with patient. Pt. verbalized understanding and signed the form. Original given to patient and copy placed in patient?s chart.
--- NOTE | 2025-02-02 13:16 | CM.DCFOLLOWU ---
Person spoke with:patient How are you feeling?well How is your pain?pain in lower left side Did you understand your discharge instructions?yes Do you have any questions about your discharge instructions?no Were you given any prescriptions at discharge?yes Were you able to get your prescriptions filled?yes Do you understand how to take your medications as ordered?yes Do you have any questions about your follow up appointment and do you plan to keep your follow up appointment?no questions, will follow up Is there anything else that you would like to discuss?no Questions/Comments/Concerns/Other:none
== END 2025-02-01 12:35 | disposition home or self-care (01) ==
LOC: ER 13:33 → MS 13:34
PROVIDERS: Urology; Admitting Provider Student in an Organized Health Care Education/Training Program; Emergency Provider Student in an Organized Health Care Education/Training Program; PCP Family Medicine; Visit Provider Student in an Organized Health Care Education/Training Program
PROC: (CPT 52332; principal; 2025-01-31 16:15)
DX: N13.2 Hydronephrosis with renal and ureteral calculous obstruction (principal); Z79.01 Long term (current) use of anticoagulants; Z87.442 Personal history of urinary calculi; Z90.710 Acquired absence of both cervix and uterus; Z90.2 Acquired absence of lung [part of]; Z90.49 Acquired absence of other specified parts of digestive tract; Z87.891 Personal history of nicotine dependence; E11.9 Type 2 diabetes mellitus without complications; I48.91 Unspecified atrial fibrillation; Z79.84 Long term (current) use of oral hypoglycemic drugs; K21.9 Gastro-esophageal reflux disease without esophagitis; L40.50 Arthropathic psoriasis, unspecified; Z85.42 Personal history of malignant neoplasm of other parts of uterus; J44.9 Chronic obstructive pulmonary disease, unspecified; E86.0 Dehydration; R10.32 Left lower quadrant pain; E87.20 Acidosis, unspecified
CPT/HCPCS: 52332; 36415; 51798; 74176; 74420; 80048; 80053; 81001; 82948; 83605; 83735; 85025; 85610; 87040; 96365; 96375; 96376; 99285; G0378; J0690; J1100; J1171; J2371; J2405; J2704; J3010; J3475; J7512; Q9967

== ENCOUNTER 2025-02-02 09:29 | Outpatient (OUT) | payer MEDICARE, SELFPAY ==
--- OUTSIDE RECORDS SUMMARY | 2025-01-20 14:30 | XMS_ITS | Encounter Summary ---
Author Organization [facility] Address [address] [place] [address] Care Team Providers Care Wireless Operator Name Role Phone Jayme Parham MD Primary Care Provider + [phone] Jayme Parham MD Unavailable [phone] Mick Farmer DO Unavailable [phone] Renato Santacruz MD Unavailable [phone] Chuy Wood MD Unavailable [phone] Reason for Visit * Imaging (Routine) - Closed Specialty Diagnoses / Procedures Referred By Contac t Referred To Contact Radiology Diagnoses Vertigo 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 (HCC) Unsteady gait Procedures MR brain w and wo contrast IACs MR brain wo contrast Jayme Parham MD 112 [facility] 100 [place] [address] Phone: tel: fax: [facility] MR [address] [facility] 130 [place] [address] Phone: tel: fax: Referral ID Status Reason Start Date Expiration Date Visits Re quested Visits Authorized [id number] Closed 01/13/2025 07/12/2025 1 1 Encounter Details Date Type Department Care Team (Latest Contact Info) Description 01/20/2025 2:30 PM EDT Ancillary Procedure [facility] MR [address] [place] [address] Vertigo; 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 (HCC); Unsteady gait Social History Tobacco Use Types Packs/Day Years [...] How often do you attend chur or islam services? Never 04/08/2024 Do you belong to any clubs o r organizations such as nondenominational groups, unions, fraternal or athletic groups, or [...] Recorded Patient Health Questionnaire-2 Score 0 11/04/2024 [facility] ional [facility] - Occupational Stress Questionnaire Answer Date Recorded [...] place to sleep or slept in a intermediate (including now)? No 12/11/2022 Housing Stability Vital Sign Answer Stefan e Recorded In the last 12 months, was t here a time when you were not able to pay the mortgage or rent on time? No 04/08/2024 In the past 12 months, how m any times have you moved where you were living? 0 04/08/2024 At any time in the past 12 m [facility], were you homeless or living in a intermediate (including now)? No 04/08/2024 Education Answer Date [...] Care Team (Late st Contact Info) Description 02/08/2025 10:30 AM EDT Office Visit [facility] [address] [place] [address] Jayme Parham MD [address] [place] [facility] [address] [place] [address] documented as of this encounter Procedures Procedure Name Priority Date/Time Associated Diagnosis Comments MR BRAIN W AND WO CONTRAST (IACS) Routine 01/20/2025 3:38 PM EDT Vertigo 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 (HCC) Unsteady gait documented in this encounter Results * MR brain w and wo contrast IACs (01/20/2025 3:38 PM EDT) Anatomical Region Laterality Modality Brain Magnetic Resonan ce 01/21/2025 9:58 AM EDT Impressions 01/21/2025 10:07 AM EDT No acute intracranial process or suspicious enhancement. ELECTRONICALLY SIGNED BY: Noé Elizondo MD Narrative 01/21/2025 10:07 AM EDT HISTORY: Vertigo. Unsteady gait. TECHNIQUE: IAC brain MRI protocol without and with contrast including diffusion images. COMPARISON: None. RESULT: Acute Change: There is no evidence of restricted diffusion to suggest an acute infarct. Hemorrhage: No evidence of prior parenchymal hemorrhage. Mass Lesion/ Mass Effect: No evidence of an intracranial mass or extra-axial fluid collection. There is no evidence of a mass in the region of either IAC or elsewhere in the posterior fossa. No abnormal enhancement is noted in the basilar cisterns, along the course of the 7/8 cranial nerve complexes, or in the region of the inner ear complexes. No abnormal parenchymal or leptomeningeal enhancement following gadolinium administration. Inner ear structures appear to be within normal limits on the high resolution 3D sequence. No significant mass effect. Chronic Change: Scattered patchy and confluent areas of increased T2 and FLAIR signal are present in the supratentorial white matter which is nonspecific but likely represents mild to moderate chronic microvascular ischemia. Parenchyma: Mild to moderate generalized volume loss. Ventricles: Normal caliber and morphology. Skull Base: Hypothalamic and pituitary region are grossly normal. Craniocervical junction is normal. No significant marrow replacement process. Vasculature: Major intracranial arterial structures, and dural venous sinuses show typical flow void, suggesting patency. Other: Areas of paranasal thickening especially in the inferior left maxillary sinus. Mastoid air cells are clear. Bilateral lens replacement surgery, orbits otherwise unremarkable. The extracranial soft tissues are unremarkable. Procedure Note Noé Elizondo MD - 01/21/2025 HISTORY: Vertigo. Unsteady gait. TECHNIQUE: IAC brain MRI protocol without and with contrast includingdiffusion images. COMPARISON: None. RESULT: Acute Change: There is no evidence of restricted diffusion to suggest anacute infarct. Hemorrhage: No evidence of prior parenchymal hemorrhage. Mass Lesion/ Mass Effect: No evidence of an intracranial mass orextra-axial fluid collection. There is no evidence of a mass in theregion of either IAC or elsewhere in the posterior fossa. No abnormalenhancement is noted in the basilar cisterns, along the course of the 7/8cranial nerve complexes, or in the region of the inner ear complexes. Noabnormal parenchymal or leptomeningeal enhancement following gadoliniumadministration. Inner ear structures appear to be within normal limits onthe high resolution 3D sequence. No significant mass effect. Chronic Change: Scattered patchy and confluent areas of increased T2 andFLAIR signal are present in the supratentorial white matter which isnonspecific but likely represents mild to moderate chronic microvascularischemia. Parenchyma: Mild to moderate generalized volume loss. Ventricles: Normal caliber and morphology. Skull Base: Hypothalamic and pituitary region are grossly normal.Craniocervical junction is normal. No significant marrow replacementprocess. Vasculature: Major intracranial arterial structures, and dural venoussinuses show typical flow void, suggesting patency. Other: Areas of paranasal thickening especially in the inferior leftmaxillary sinus. Mastoid air cells are clear. Bilateral lens replacementsurgery, orbits otherwise unremarkable. The extracranial soft tissues areunremarkable. IMPRESSION: No acute intracranial process or suspicious enhancement. ELECTRONICALLY SIGNED BY: Noé Elizondo MD Jayme Parham MD IMG MRI PROCEDURES Final Res ult documented in this encounter Visit Diagnoses Diagnosis Vertigo Dizziness and giddiness 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 (HCC) Atrial fibrillation Unsteady gait Abnormality of gait documented in this encounter Administered Medications Inactive Administered Medications - up to 3 most recent administrations Medication Order MAR Action Action Date Dose Rate Site Gadopiclenol solution Intravenous, Once in imaging, Starting on Roseanne 01/20/25 at 1518, For 1 doseIndications:Vertigo Given 01/20/2025 3:27 PM EDT 6.5 mL documented in this encounter Additional Health Concerns Assessment Noted Time PHQ-9 Depression Total Score: 7 11/05/19 1:00 PM EDT documented as of this encounter Care Teams Wireless Operator Relationship Specialty Start Date End Date Jayme Parham MD [address] [address] PCP - General Family Medicine 11/25/22 Jayme Parham MD [address] [address] PCP - ACO Reach 12/05/22 Mick Farmer DO [address] [place] [address] Referring Physician Ophthalmology 08/21/23 Renato Santacruz MD [address] [place] [address] Referring Physician Urology 08/21/23 Chuy Wood MD [address] [facility] Professional building [address] [place] [address] Referring Physician Rheumatology 08/21/23 documented as of this encounter
--- OUTSIDE RECORDS SUMMARY | 2025-02-02 09:33 | XMS_ITS | Encounter Summary ---
Author Organization [facility] Address [address] [place] [address] Care Team Providers Care Relief Cook Name Role Phone Jayme Parham MD Primary Care Provider [phone] Jayme Parham MD Unavailable [phone] Mick Farmer DO Unavailable [phone] Renato Santacruz MD Unavailable [phone] Chuy Wood MD Unavailable [phone] Reason for Referral * Consultation (Routine) - Pending Review Specialty Diagnoses / Procedures Referred By Contac t Referred To Contact Neurology Diagnoses Brain atrophy White matter disease Vertigo Procedures [place] OFFICE/OUTPATIENT NEW HIGH MDM 60 MINUTES Jayme Parham MD [address] [facility] [address] [place] [address] Phone: tel: fax: Lan Truong MD [address] [facility] [address] [place] [address] Phone: tel: fax: Referral ID Status Reason Start Date Expiration Date Visits Requested Visits Authorized [id number] Pending Review Specialty Services Required 01/25/2025 07/24/2025 1 1 Encounter Details Date Type Department Care Team (Late st Contact Info) Description 01/25/2025 Telephone [facility] [address] [place] [address] Jayme Parham MD [address] [facility] [address] [place] [address] Social History Tobacco Use Types Packs/Day Years [...] How often do you attend chur or moravian services? Never 04/08/2024 Do you belong to [...] Recorded Patient Health Questionnaire-2 Score 0 11/04/2024 [facility] - Occupational [...] in a residential (including now)? No 12/11/2022 Housing Stability Vital [...] in the past 12 m [facility], were you homeless or living in a residential (including now)? No 04/08/2024 Education Answer Date [...] on file documented as of this encounter Miscellaneous Notes * Telephone Encounter - Maglais Harris MA - 01/25/2025 2:49 PM EDT Patient was notified and verbalized understanding. He/She knows to contact office with any further questions. Referral sent * Telephone Encounter - Jayme Parham MD - 01/25/2025 2:02 PM EDT Notify the patient that I reviewed her brain imaging. There are no tumors. There is however significant white matter disease and moderate atrophy of the brain. I suspect these are the reasons for her vertigo. I do not have much else to offer her. We can refer her to Neurology for an opinion to see if they have something that could help her with the vertigo if she would like. Okay to refer to Dr. Truong. documented in this encounter Plan of Treatment Upcoming Encounters Date Type Department Care Team (Late st Contact Info) Description 02/08/2025 10:30 AM EDT Office Visit [facility] 100 [address] [facility] [address] [place] [address] Jayme Parham MD [address] [address] (Fax) Scheduled Referrals Name Type Priority Associated Diagnoses Order Schedule Ambulatory referral to Neurology Outpatient Referral Routine Brain atrophy White matter disease Vertigo Expected: 01/25/2025 (Approximate), Expires: 07/28/2025 documented as of this encounter Visit Diagnoses Diagnosis Brain atrophy Unspecified cerebral degeneration White matter disease Vertigo Dizziness and giddiness documented in this encounter Additional Health Concerns Assessment Noted Time PHQ-9 Depression Total Score: 7 11/05/19 25 1:00 PM EDT documented as of this encounter Care Teams Relief Cook Relationship Specialty Start Date End Date Jayme Parham MD [address] [address] PCP - General Family Medicine 11/25/22 Jayme Parham MD [address] [address] (Fax) PCP - ACO Reach 12/05/22 Mick Farmer DO [address] [facility] [address] [place] [address] Referring Physician Ophthalmology 08/21/23 Renato Santacruz MD [address] [place] [address] Referring Physician Urology 08/21/23 Chuy Wood MD [address] [facility] [address] [place] [id number] Referring Physician Rheumatology 08/21/23 documented as of this encounter
--- OUTSIDE RECORDS SUMMARY | 2025-02-02 09:33 | XMS_ITS | Encounter Summary ---
Author Organization [facility] Address [address] [place] [address] Care Team Providers Care Computer Network Specialist Name Role Phone Jayme Parham MD Primary Care Provider [phone] Jayme Parham MD Unavailable [phone] Mick Farmer DO Unavailable [phone] Renato Santacruz MD Unavailable [phone] Chuy Wood MD Unavailable [phone] Encounter Details Date Type Department Care Team (Late st Contact Info) Description 01/21/2025 Clinisync Result Encounter [facility] External Department Unsolicited [...] often do you attend chur ch or sabianism services? Never 04/08/2024 Do you belong to any clubs o r organizations such as cheondoism groups, unions, fraternal or athletic groups, or [...] Recorded Patient Health Questionnaire-2 Score 0 11/04/2024 [facility] Occupat ional Health - [...] place to sleep or slept in a half-way (including now)? No 12/11/2022 Housing Stability Vital Sign Answer Stefan e Recorded In the last 12 months, was t here a time when you were not able to pay the mortgage or rent on time? No 04/08/2024 In the past 12 months, how m any times have you moved where you were living? 0 04/08/2024 At any time in the past 12 m [facility], were you homeless or living in a half-way (including now)? No 04/08/2024 Education Answer Date [...] 02/08/2025 10:30 AM EDT Office Visit [facility] [address] [facility] 100 [place] [address] Jayme Parham MD [address] [place] [address] documented as of this encounter Procedures Procedure Name Priority Date/Time Associated Diagnosis Comments [facility] CMP (CMP) (FOR REMOTE [facility] USE) Routine 01/21/2025 1:58 PM EDT ALL SED RATE Routine 01/21/2025 1:58 PM EDT ALL PHOSPHOROUS Routine 01/21/2025 1:58 PM EDT ALL MAGNESIUM Routine 01/21/2025 1:58 PM EDT ALL CBC WITH AUTO DIFF Routine 01/21/2025 1:58 PM EDT documented in this encounter Results * ALL MAGNESIUM (01/21/2025 1:58 PM EDT) MAGNESIUM 1.8 1.8 - 2.4 mg/dL [facility] 01/21/2025 1:58 PM EDT 01/21/2025 1:59 PM EDT Narrative CLINISYNC - 01/21/2025 3:07 PM EDT us Generic External Data Provider CLINISYNC F inal Result Performing Organization Address City/[facility]/ZIP Co de Phone Number CLINISYNC [facility] * (ABNORMAL) ALL PHOSPHOROUS (01/21/2025 1:58 PM EDT) PHOSPHORUS 2.0(L) 2.6 - 4.7 mg/dL [facility] 01/21/2025 1:58 PM EDT 01/21/2025 1:59 PM EDT Narrative CLINISYNC - 01/21/2025 3:07 PM EDT Generic External Data Provider CLINISYNC F inal Result [facility] * (ABNORMAL) [facility] CMP (CMP) (FOR REMOTE [facility] USE) (01/21/2025 1:58 PM EDT) SODIUM 144 136 - 145 mmol/L TBH POTASSIUM 4.2 3.5 - 5.1 mmol/L TBH CHLORIDE 106 98 - 107 mmol/L TBH CARBON DIOXIDE 29.3 21.0 - 32.0 mmol/L TBH ANION GAP 12.9 TBH GLUCOSE 115(H) 74 - 106 mg/dL TBH BLOOD UREA NITROGEN 21.0(H) 7.0 - 18.0 mg/dL TBH CREATININE 0.79 0.55 - 1.02 mg/dL TBH TBH EGFR-AF SAUDI ARABIAN >60 >=60 mL/min/1. 73m 2 TBH TBH EGFR-NON AF SAUDI ARABIAN >60 >=60 mL/min/1. 73m 2 TBH BUN CREATININE RATIO 26.6 TBH CALCIUM 9.6 8.5 - 10.1 mg/dL TBH BILIRUBIN TOTAL 0.5 0.2 - 1.0 mg/dL TBH ASPARTATE AMINO TRANSFERASE 15 15 - 37 U/L TBH ALANINE AMINOTRANSFERASE 21 14 - 59 U/L TBH ALKALINE PHOSPHATASE 52 46 - 116 U/L TBH TOTAL PROTEIN 6.6 6.4 - 8.2 g/dL TBH ALBUMIN LEVEL 3.7 3.4 - 5.0 g/dL TBH GLOBULIN 2.9 g/dL TBH ALBUMIN GLOBULIN RATIO 1.3 [facility] 01/21/2025 1:58 PM EDT 01/21/2025 1:59 PM EDT Narrative CLINISYNC - 01/21/2025 3:07 PM EDT Generic External Data Provider [facility] F [facility]al [facility] * ALL SED RATE (01/21/2025 1:58 PM EDT) [facility] SED RATE 7 <=30 mm/hr [facility] 01/21/2025 1:58 PM EDT 01/21/2025 1:59 PM EDT Narrative CLINISYNC - 01/21/2025 2:53 PM EDT us Generic External Data Provider CLINISYNC F inal Result [facility] * (ABNORMAL) ALL CBC WITH AUTO DIFF (01/21/2025 1:58 PM EDT) TB WBC 7.0 4.0 - 11.0 10 3/uL TBH TBH RBC 3.84(L) 4.20 - 5.40 10 6/uL TBH TBH HGB 12.0 12.0 - 16.0 g/dL TBH TB HCT 37.0 36.0 - 48.0 % TBH TBH MCV 96.4 81.0 - 99.0 fL TBH TBH MCH 31.3 26.7 - 34.0 pg TBH TBH MCHC 32.4 29.9 - 35.2 g/dL TBH TBH RDW 14.5 11.0 - 15.0 % TBH TBH PLT 308 150 - 450 10 3/uL TBH TBH MPV 8.9(L) 9.5 - 13.5 fL TBH NEUTROPHILS PERCENT AUTO 57.8 43.0 - 75.0 % TBH LYMPHOCYTES PERCENT AUTO 30.9 20.5 - 60.0 % TBH MONOCYTES PERCENT AUTO 8.3 1.7 - 12.0 % TBH TBH EO % 1.9 0.9 - 7.0 % TBH BASOPHILS PERCENT AUTO 0.7 0.2 - 2.0 % TBH IMMATURE GRANULOCYTES PCT AUTO 0.4 0.0 - 0.5 % TBH NEUTROPHILS ABSOLUTE AUTO 4.1 1.4 - 6.5 10 3/uL TBH LYMPHOCYTES ABSOLUTE AUTO 2.2 1.2 - 3.8 10 3/uL TBH MONOCYTES ABSOLUTE AUTO 0.6 0.3 - 0.8 10 3/uL TBH TBH EO # 0.1 0.0 - 0.7 10 3/uL TBH BASOPHILS ABSOLUTE AUTO 0.1 0.0 - 0.1 10 3/uL TBH IMMATURE GRANULOCYTES ABS AUTO 0.03 0.00 - 0.03 10 3/uL TBH 01/21/2025 1:58 PM EDT 01/21/2025 1:59 PM EDT Narrative CLINISYNC - 01/21/2025 2:50 PM EDT us Generic External Data Provider FOSTEREMILY F inal Result [facility] documented in this encounter Visit Diagnoses Not on filedocumented in this encounter Additional Health Concerns Assessment Noted Time PHQ-9 Depression Total Score: 7 11/05/19 1:00 PM EDT documented as of this encounter Care Teams Computer Network Specialist Relationship Specialty Start Date End Date Jayme Parham MD [address] [place] [address] PCP - General Family Medicine 11/25/22 Jayme Parham MD [address] [place] [address] PCP - ACO Reach 12/05/22 Mick Farmer DO [address] [place] [address] Referring Physician Ophthalmology 08/21/23 Renato Santacruz MD [address] [place] [address] Referring Physician Urology 08/21/23 Chuy Wood MD [address] [facility] Professional building [address] [place] [phone] Referring Physician Rheumatology 08/21/23 documented as of this encounter
--- OUTSIDE RECORDS SUMMARY | 2025-02-02 09:33 | XMS_ITS | Encounter Summary ---
Author Organization [facility] Address [address] [place] [address] Care Team Providers Care Fabric Finisher Name Role Phone Jayme Parham MD Primary Care Provider [phone] Jayme Parham MD Unavailable [phone] Mick Farmer DO Unavailable [phone] Renato Santacruz MD Unavailable [phone] Chuy Wood MD Unavailable [phone] Encounter Details Date Type Department Care Team (Late st Contact Info) Description 08/14/2023 Abstract [facility] [address] [place] [address] Renato Santacruz MD [address] [place] [address] Social History Tobacco Use Types Packs/Day Years [...] attend chur ch or sabianism services? Never 12/11/2022 Active Member of Clubs [...] Recorded Patient Health Questionnaire-2 Score 0 02/06/2023 [facility] Occupat ional Health - Occupational Stress [...] money to buy more. Never true 12/12/19 Within the past 12 months, t he [...] 02/08/2025 10:30 AM EDT Office Visit [facility] [address] [place] [address] Jayme Parham MD [address] [place] [address] documented as of this encounter Visit Diagnoses Not on filedocumented in this encounter Additional Health Concerns Assessment Noted Time PHQ-9 Depression Total Score: 7 05/22/20 23 2:00 PM EST documented as of this encounter Care Teams Fabric Finisher Relationship Specialty Start Date End Date Jayme Parham MD [address] [place] [address] PCP - General Family Medicine 11/25/22 Jayme Parham MD [address] [place] [address] PCP - ACO Reach 12/05/22 Mick Farmer DO [address] [place] [address] Referring Physician Ophthalmology 08/21/23 Renato Santacruz MD [address] [place] [address] Referring Physician Urology 08/21/23 Chuy Wood MD [address] [facility] Professional building 1 [place] [address] Referring Physician Rheumatology 08/21/23 documented as of this encounter
--- OUTSIDE RECORDS SUMMARY | 2025-02-02 09:33 | XMS_ITS | Encounter Summary ---
Author Organization [facility] Address [address] [place] [address] Care Team Providers Care Research And Development Manager Name Role Phone Jayme Perez MD Primary Care Provider [phone] Jayme Perez MD Unavailable [phone] Mick Farmer DO Unavailable [phone] Renato Santacruz MD Unavailable [phone] Chuy Wood MD Unavailable [phone] Encounter Details Date Type Department Care Team [...] Recorded Patient Health Questionnaire-2 Score 0 02/06/2023 [facility] - Occupational Stress Questionnaire Answer Date [...] place to sleep or slept in a penitentiary (including now)? No 12/11/2022 Education Answer Date [...] 02/08/2025 10:30 AM EDT Office Visit [facility] 100 112 [facility] [address] [place] [address] Jayme Perez MD 112 [facility] 100 [place] [address] documented as of this encounter Procedures Procedure Name Priority Date/Time Associated Diagnosis Comments XR ABDOMEN 1V 10/09/2023 6:22 AM EDT documented in this encounter Results * XR ABDOMEN 1V (10/09/2023 6:22 AM EDT) Anatomical Region Laterality Modality Other 10/09/2023 6:22 AM EDT Narrative 10/09/2023 6:25 AM EDT The [address] [address] XRay Report Signed Patient: WILDA SEN MR#: [id number] : 1945 Acct:[id number] Age/Sex: 78 / F ADM Date: 10/08/23 Loc: [facility] Attending Dr: Williams Jackson M.D. Ordering Physician: Williams Jackson M.D. Date of Service: 10/08/23 Procedure(s): XR abdomen 1V Accession Number(s): [id number] cc: Williams Jackson M.D.; JAYME PEREZ The [place] [id number] Patient Name: WILDA SEN MRN: [id number] date: 1945 Sex: F Assigned Patient Location: [facility] Current Patient Location: Accession/Order Number: [id number] Exam Date: 10/08/2023 10:37 Report Date: 10/09/2023 [...] M.D. Signed By: 10/09/23624 DD/ 1 TD/TT: Alum Operator: Procedure Note Radiology, Radiologist, - 10/09/2023 The [place] [id number] XRay Report Signed Patient: WILDA SEN JMR#: [id number] : 1945cct:[id number] Age/Sex: 78 / FADM Date: 10/08/23 Loc: RAD Attending Dr: Williams Jackson M.D. Ordering Physician: Williams Jackson M.D. Date of Service: 10/08/23 Procedure(s): XR abdomen 1V Accession Number(s): [id number] cc: Williams Jackson M.D.; JAYME PEREZ [place] [id number] Patient Name: WILDA SEN MRN: [id number] date: 1945 Sex: F Assigned Patient Location: [facility] Current Patient Location: Accession/Order Number: [id number] Exam Date: 10/08/2023 10:37 Report Date: 10/09/2023 [...] 06:22 Dictated By: Varghese Garay M.D. Signed By:10/09/2325 DD/ 1 TD/TT: Alum Operator: us Generic External Data Provider [facility] IMAGING Final Result documented in this encounter Visit Diagnoses Not on filedocumented in this encounter Additional Health Concerns Assessment Noted Time PHQ-9 Depression Total Score: 7 05/22/20 23 2:00 PM EST documented as of this encounter Care Teams Research And Development Manager Relationship Specialty Start Date End Date Jayme Perez MD [address] [place] [address] PCP - General Family Medicine 11/25/22 Jayme Perez MD [address] [place] [address] PCP - ACO Reach 12/05/22 Mick Farmer DO [address] [place] [address] Referring Physician Ophthalmology 08/21/23 Renato Santacruz MD [address] [place] [address] Referring Physician Urology 08/21/23 Chuy Wood MD [address] [facility] Professional building 1 [place] [phone] Referring Physician Rheumatology 08/21/23 documented as of this encounter
--- OUTSIDE RECORDS SUMMARY | 2025-02-02 09:33 | XMS_ITS | Encounter Summary ---
Author Organization [facility] Address [address] [place] [address] Care Team Providers Care Swine Nutritionist Name Role Phone Jayme Parham MD Primary Care Provider [phone] Jayme Parham MD Unavailable [phone] Mick Farmer DO Unavailable [phone] Renato Santacruz MD Unavailable [phone] Chuy Wood MD Unavailable [phone] Encounter Details Date Type Department Care Team (Late st Contact Info) Description 08/13/2023 Abstract [facility] [address] [place] [address] Jr Jarrell MD [address] [facility] Social History Tobacco Use Types Packs/Day [...] often do you attend chur ch or amish services? Never 12/11/2022 Active Member of Clubs [...] Recorded Patient Health Questionnaire-2 Score 0 02/06/2023 [facility] of Occupat ional Health - Occupational [...] FM [address] [place] [address] Jayme Parham MD [address] [place] [address] documented as of this encounter Visit Diagnoses Not on filedocumented in this encounter Additional Health Concerns Assessment Noted Time PHQ-9 Depression Total Score: 7 05/22/20 23 2:00 PM EST documented as of this encounter Care Teams Swine Nutritionist Relationship Specialty Start Date End Date Jayme Parham MD [address] [place] [address] PCP - General Family Medicine 11/25/22 Jayme Parham MD [address] [facility] 100 [place] [address] PCP - ACO Reach 12/05/22 Mick Farmer DO [address] [place], [place] [phone] Referring Physician Ophthalmology 08/21/23 Renato Santacruz MD [address] [place] [address] Referring Physician Urology 08/21/23 Chuy Wood MD [address] [facility] Professional building 1 [place] [phone] Referring Physician Rheumatology 08/21/23 documented as of this encounter
--- OUTSIDE RECORDS SUMMARY | 2025-02-02 09:33 | XMS_ITS | Encounter Summary ---
Author Organization [facility] Address [address] [place] [address] Care Team Providers Care Screw Cutter Name Role Phone Jayme Parham MD Primary Care Provider [phone] Jayme Parham MD Unavailable [phone] Mick Farmer DO Unavailable [phone] Renato Santacruz MD Unavailable [phone] Chuy Wood MD Unavailable [phone] Encounter Details Date Type Department Care Team (Late st Contact Info) Description 09/18/2023 Orders Only [facility] [address] [place] [address] Jayme Parham MD 112 [facility] 100 [place] [address] Social History Tobacco Use Types [...] Recorded Patient Health Questionnaire-2 Score 0 02/06/2023 [facility] of Occupat ional Health - Occupational Stress [...] FM [address] [place] [address] Jayme Parham MD [address] [place] [address] documented as of this encounter Visit Diagnoses Not on filedocumented in this encounter Additional Health Concerns Assessment Noted Time PHQ-9 Depression Total Score: 7 05/22/20 23 2:00 PM EST documented as of this encounter Care Teams Screw Cutter Relationship Specialty Start Date End Date Jayme Parham MD [address] [place] [address] PCP - General Family Medicine 11/25/22 Jayme Parham MD [address] [facility] [address] [place] [address] PCP - ACO Reach 12/05/22 Mick Farmer DO [address] [place] [address] Referring Physician Ophthalmology 08/21/23 Renato Santacruz MD [address] [place] [address] Referring Physician Urology 08/21/23 Chuy Wood MD [address] [facility] Professional building [address] [place] [phone] Referring Physician Rheumatology 08/21/23 documented as of this encounter
--- OUTSIDE RECORDS SUMMARY | 2025-02-02 09:33 | XMS_ITS | Encounter Summary ---
Author Organization [facility] Address [address] [place] [address] Care Team Providers Care Manager Room Name Role Phone Jayme Parham MD Primary Care Provider [phone] Jayme Parham MD Unavailable [phone] Mick Farmer DO Unavailable [phone] Renato Santacruz MD Unavailable [phone] Chuy Wood MD Unavailable [phone] Encounter Details Date Type Department Care Team (Late st Contact Info) Description 08/14/2023 Orders Only [facility] [address] [place] [address] Magalis Harris [place] Social History Tobacco Use Types Packs/Day Years [...] often do you attend chur ch or oriental orthodox services? Never 12/11/2022 Active Member of Clubs [...] Recorded Patient Health Questionnaire-2 Score 0 02/06/2023 [facility] Questionnaire Answer Date [...] FM [address] [place] [address] Jayme Parham MD 112 [facility] 100 [place] [address] (Fax) documented as of this encounter Visit Diagnoses Not on filedocumented in this encounter Additional Health Concerns Assessment Noted Time PHQ-9 Depression Total Score: 7 05/22/20 23 2:00 PM EST documented as of this encounter Care Teams Manager Room Relationship Specialty Start Date End Date Jayme Parham MD [address] [facility] 100 [place] [address] (Fax) PCP - General Family Medicine 11/25/22 Jayme Parham MD [address] [facility] [address] [place] [address] PCP - ACO Reach 12/05/22 Mick Farmer DO [address] [facility] [address] [place] [address] Referring Physician Ophthalmology 08/21/23 Renato Santarcuz MD [address] [place] [address] Referring Physician Urology 08/21/23 Chuy Wood MD [address] [facility] Professional building [address] [place] [phone] Referring Physician Rheumatology 08/21/23 documented as of this encounter
--- OUTSIDE RECORDS SUMMARY | 2025-02-02 09:33 | XMS_ITS | Encounter Summary ---
Author Organization [facility] Address [address] [place] [address] Care Team Providers Care Quarter Seamer Name Role Phone Jayme Parham MD Primary Care Provider [phone] Jayme Parham MD Unavailable [phone] Mick Farmer DO Unavailable [phone] Renato Santacruz MD Unavailable [phone] Chuy Wood MD Unavailable [phone] Encounter Details Date Type Department Care Team (Late st Contact Info) Description 09/03/2023 Orders Only [facility] [address] [place] [address] Jayme Parham MD 112 [facility] 100 [place] [address] Social History Tobacco Use Types [...] often do you attend chur ch or latter-day services? Never 12/11/2022 Active Member of Clubs [...] Recorded Patient Health Questionnaire-2 Score 0 02/06/2023 [facility] of Occupat ional Health - Occupational [...] FM [address] [place] [address] Jayme Parham MD [address] [place] [address] documented as of this encounter Visit Diagnoses Not on filedocumented in this encounter Additional Health Concerns Assessment Noted Time PHQ-9 Depression Total Score: 7 05/22/20 23 2:00 PM EST documented as of this encounter Care Teams Quarter Seamer Relationship Specialty Start Date End Date Jayme Parham MD [address] [place] [address] PCP - General Family Medicine 11/25/22 Jayme Parham MD [address] [place] [facility] [address] [place] [address] PCP - ACO Reach 12/05/22 Mick Farmer DO [address] [place] [address] Referring Physician Ophthalmology 08/21/23 Renato Santacruz MD [address] [place] [address] Referring Physician Urology 08/21/23 Chuy Wood MD [address] [facility] Professional building [address] [place] [phone] Referring Physician Rheumatology 08/21/23 documented as of this encounter
--- OUTSIDE RECORDS SUMMARY | 2025-02-02 09:33 | XMS_ITS | Encounter Summary ---
Author Organization [facility] Address [address] [place] [address] Care Team Providers Care Esthetic Dermatologist Name Role Phone Jayme Parham MD Primary Care Provider [phone] Jayme Parham MD Unavailable [phone] Mick Farmer DO Unavailable [phone] Renato Santacruz MD Unavailable [phone] Chuy Wood MD Unavailable [phone] Encounter Details Date Type Department Care Team (Late st Contact Info) Description 01/25/2025 Results Follow-Up [facility] [address] [facility] [address] [place] [address] Jayme Parham MD [address] [place] [facility] [address] [place], [place] [phone] (Fax) Brain atrophy (Primary Dx); White matter disease Social History Tobacco Use Types Packs/Day Years [...] How often do you attend chur or anglican services? Never 04/08/2024 Do you belong to any clubs o r organizations such as denominational groups, unions, fraternal or athletic groups, or [...] Recorded Patient Health Questionnaire-2 Score 0 11/04/2024 [facility] of Occupat ional Health - [...] Visit [facility] [address] [facility] [address] [place] [address] Jayme Parham MD [address] [facility] 100 [place] [address] documented as of this encounter Visit Diagnoses Diagnosis Brain atrophy- Primary Unspecified cerebral degeneration White matter disease documented in this encounter Additional Health Concerns Assessment Noted Time PHQ-9 Depression Total Score: 7 11/05/19 25 1:00 PM EDT documented as of this encounter Care Teams Esthetic Dermatologist Relationship Specialty Start Date End Date Jayme Parham MD [address] [facility] 100 [place] [address] PCP - General Family Medicine 11/25/22 Jayme Parham MD 112 [facility] 100 [place] [address] (Fax) PCP - ACO Reach 12/05/22 Mick Farmer DO [address] [facility] [address] [place] [address] Referring Physician Ophthalmology 08/21/23 Renato Santacruz MD [address] [place] [address] Referring Physician Urology 08/21/23 Chuy Wood MD [address] [facility] Professional building [address] [place] [phone] Referring Physician Rheumatology 08/21/23 documented as of this encounter
--- OUTSIDE RECORDS SUMMARY | 2025-02-02 09:33 | XMS_ITS | Encounter Summary ---
Author Organization [facility] Address [address] [place] [address] Care Team Providers Care Section Hand Helper Name Role Phone Jayme Parham MD Primary Care Provider [phone] Jayme Parham MD Unavailable [phone] Mick Farmer DO Unavailable [phone] Renato Santacruz MD Unavailable [phone] Chuy Wood MD Unavailable [phone] Encounter Details Date Type Department Care Team (Late st Contact Info) Description 08/12/2023 Abstract [facility] [address] [place] [address] Jayme Parham MD 112 [facility] [address] [place] [address] Social History Tobacco Use Types [...] often do you attend chur ch or advent services? Never 12/11/2022 Active Member of Clubs [...] 02/08/2025 10:30 AM EDT Office Visit [facility] [address] [place] [address] Jayme Parham MD [address] [place] [address] documented as of this encounter Visit Diagnoses Not on filedocumented in this encounter Additional Health Concerns Assessment Noted Time PHQ-9 Depression Total Score: 7 05/22/20 23 2:00 PM EST documented as of this encounter Care Teams Section Hand Helper Relationship Specialty Start Date End Date Jayme Parham MD [address] [place] [address] PCP - General Family Medicine 11/25/22 Jayme Parham MD [address] [place] [address] PCP - ACO Reach 12/05/22 Mick Farmer DO [address] [place] [address] Referring Physician Ophthalmology 08/21/23 eRnato Santacruz MD [address] [place] [address] Referring Physician Urology 08/21/23 Chuy Wood MD [address] [facility] Professional building [address] [place] [phone] Referring Physician Rheumatology 08/21/23 documented as of this encounter
--- OUTSIDE RECORDS SUMMARY | 2025-02-02 09:34 | XMS_ITS | Encounter Summary ---
Author Organization [facility] Address [address] [place] [address] Care Team Providers Care Assistant Professor Of Philosophy Name Role Phone Jayme Parham MD Primary Care Provider [phone] Jayme Parham MD Unavailable [phone] Mick Farmer DO Unavailable [phone] Renato Santacruz MD Unavailable [phone] Chuy Wood MD Unavailable [phone] Encounter Details Date Type Department Care Team (Late st Contact Info) Description 07/28/2023 Orders Only [facility] [address] [place] [address] [place]ly, [place], [place] Social History Tobacco Use Types Packs/Day [...] often do you attend chur ch or muslim services? Never 12/11/2022 Active Member of Clubs [...] Recorded Patient Health Questionnaire-2 Score 0 02/06/2023 [facility] Questionnaire Answer Date [...] Office Visit [facility] FM 100 112 [facility] [address] [place] [address] Jayme Parham MD 112 [facility] 100 [place] [address] documented as of this encounter Visit Diagnoses Not on filedocumented in this encounter Additional Health Concerns Assessment Noted Time PHQ-9 Depression Total Score: 7 05/22/20 23 2:00 PM EST documented as of this encounter Care Teams Assistant Professor Of Philosophy Relationship Specialty Start Date End Date Jayme Parham MD 112 [facility] 100 [place] [address] (Fax) PCP - General Family Medicine 5/15/23 Jayme Parham MD 112 [facility] [address] [place] [address] PCP - ACO Reach 12/05/22 Mick Farmer DO [address] [place] [address] Referring Physician Ophthalmology 08/21/23 Renato Santacruz MD [address] [place] [address] Referring Physician Urology 08/21/23 Chuy Wood MD [address] [facility] Professional building [address] [place] [phone] Referring Physician Rheumatology 08/21/23 documented as of this encounter
--- OUTSIDE RECORDS SUMMARY | 2025-02-02 09:34 | XMS_ITS | Encounter Summary ---
Author Organization [facility] Address [address] [place] [address] Care Team Providers Care Firer Bisque Kiln Name Role Phone Jayme Perez MD Primary Care Provider [phone] Jayme Perez MD Unavailable [phone] Mick Farmer DO Unavailable [phone] Renato Santacruz MD Unavailable [phone] Chuy Wood MD Unavailable [phone] Encounter Details Date Type Department Care Team (Late st Contact Info) Description 05/15/2024 Clinisync Result Encounter [facility] External Department Unsolicited Jayme Perez MD 112 [facility] 100 [place] [address] Social History Tobacco Use Types [...] How often do you attend chur or druze services? Never 04/08/2024 Do you belong to any clubs o r organizations such as christianity groups, unions, fraternal or athletic groups, or [...] Recorded Patient Health Questionnaire-2 Score 0 02/06/2023 [facility] of Occupat ional Health - Occupational Stress [...] any time in the past 12 m [facility], were you homeless or living [...] Office Visit [facility] 100 112 [facility] 100 [place] [address] Jayme Perez MD 112 [facility] 100 [place] [address] documented as of this encounter Procedures Procedure Name Priority Date/Time Associated Diagnosis Comments CT CHEST W CONTRAST 05/15/2024 7 :23 AM EDT documented in this encounter Results * CT CHEST W CONTRAST (05/15/2024 7:23 AM EDT) Anatomical Region Laterality Modality Other 05/15/2024 7:23 AM EDT Narrative 05/15/2024 7:26 AM EDT [address] [address] [address] Scan Report Signed Patient: WILDA SEN MR#: [id number] : 1945 Acct:[id number] Age/Sex: 79 / F ADM Date: 05/14/24 Loc: CT Attending Dr: JAYME PEREZ Ordering Physician: JYAME PEREZ Date of Service: 05/14/24 Procedure(s): CT chest w con Accession Number(s): [id number] cc: JAYME PEREZ [address] [address] Patient Name: WILDA SEN MRN: [id number] date: 1945 Sex: F Assigned Patient Location: CT Current Patient Location: Accession/Order Number: [id number] Exam Date: 05/14/2024 09:00 Report Date: 05/15/2024 [...] M.D. Signed By: 05/15/24725 DD/ 2 TD/TT: [place] Operator: Procedure Note Radiology, Radiologist, MD - 05/15/2024 [place] [address] CT Scan Report Signed Patient: WILDA SEN JMR#: [id number] : 1945cct:[id number] Age/Sex: 79 / FADM Date: 05/14/24 Loc: CT Attending Dr: JAYME PEREZ Ordering Physician: JAYME PEREZ Date of Service: 05/14/24 Procedure(s): CT chest w con Accession Number(s): [id number] cc: JAYME PEREZ [place] [id number] Patient Name: WILDA SEN MRN: [id number] date: 1945 Sex: F Assigned Patient Location: CT Current Patient Location: Accession/Order Number: [id number] Exam Date: 05/14/2024 09:00 Report Date: 05/15/2024 [...] Garay M.D. Signed By:05/15/24725 DD/ 2 TD/TT: [place] Operator: Jayme Perez MD [facility] Final Resu lt documented in this encounter Visit Diagnoses Not on filedocumented in this encounter Additional Health Concerns Assessment Noted Time PHQ-9 Depression Total Score: 7 05/22/20 23 2:00 PM EST documented as of this encounter Care Teams Firer Bisque Kiln Relationship Specialty Start Date End Date Jayme Perez MD [address] [address] PCP - General Family Medicine 11/25/22 Jayme Perez MD 112 [facility] [address] [place] [address] PCP - ACO Reach 12/05/22 Mick Farmer DO 278 [facility] [address] [place] [address] Referring Physician Ophthalmology 08/21/23 Renato Santacruz MD 290 [place] [address] Referring Physician Urology 08/21/23 Chuy Wood MD [address] [facility] Professional building [address] [place] [phone] Referring Physician Rheumatology 08/21/23 documented as of this encounter
--- OUTSIDE RECORDS SUMMARY | 2025-02-02 09:34 | XMS_ITS | Encounter Summary ---
Author Organization [facility] Address [address] [place] [address] Care Team Providers Care Hospital Receiving Clerk Name Role Phone Jayme Parham MD Primary Care Provider [phone] Jayme Parham MD Unavailable [phone] Mick Farmer DO Unavailable [phone] Renato Santacruz MD Unavailable [phone] Chuy Wood MD Unavailable [phone] Encounter Details Date Type Department Care Team (Late st Contact Info) Description 07/16/2023 Orders Only [facility] [address] [place] [address] Jayme Parham MD 112 [facility] 100 [place] [address] Acute cough (Primary Dx); Chronic [...] Patient Health Questionnaire-2 Score 0 02/06/2023 [facility] of Occupat ional Health - Occupational [...] FM [address] [place] [address] Jayme Parham MD 112 [facility] [address] [place] [address] documented as of this encounter Visit Diagnoses Diagnosis Acute cough- Primary Chronic obstructive pulmonary disease with acute exacerbation (HCC) documented in this encounter Additional Health Concerns Assessment Noted Time PHQ-9 Depression Total Score: 7 05/22/20 23 2:00 PM EST documented as of this encounter Care Teams Hospital Receiving Clerk Relationship Specialty Start Date End Date Jayme Parham MD [address] [place] [address] PCP - General Family Medicine 11/25/22 Jayme Parham MD [address] [place] [address] PCP - ACO Reach 12/05/22 Mick Farmer DO [address] [place] [address] Referring Physician Ophthalmology 08/21/23 Renato Santacruz MD 290 [place] [address] Referring Physician Urology 08/21/23 Chuy Wood MD [address] [facility] Professional building 1 [place] [phone] Referring Physician Rheumatology 08/21/23 documented as of this encounter
--- OUTSIDE RECORDS SUMMARY | 2025-02-02 09:34 | XMS_ITS | Encounter Summary ---
Author Organization [facility] Address [address] [place] [address] Care Team Providers Care Manhole Builder Name Role Phone Jayme Parham MD Primary Care Provider [phone] Jayme Parham MD Unavailable [phone] Mick Farmer DO Unavailable [phone] Renato Santacruz MD Unavailable [phone] Chuy Wood MD Unavailable [phone] Encounter Details Date Type Department Care Team (Late st Contact Info) Description 12/23/2022 Orders Only [facility] [address] [place] [address] Jayme Parham MD 112 [facility] 100 [place] [address] Social History Tobacco Use Types [...] Recorded Patient Health Questionnaire-2 Score 0 12/12/2022 [facility] of Occupat ional [...] a care home (including now)? No 12/11/2022 Comments No Sex [...] FM [address] [place] [address] Jayme Parham MD 112 [facility] [address] [place] [address] documented as of this encounter Procedures Procedure Name Priority Date/Time Associated Diagnosis Comments PROTHROMBIN TIME-INR Routine 12/16/2022 12:55 PM EDT documented in this encounter Results * Protime-INR (12/16/2022 12:55 PM EDT) Blood Venous blood specimen / Unknown Jayme Parham MD LAB BLOOD ORDERABLES Final R esult documented in this encounter Visit Diagnoses Not on filedocumented in this encounter Care Teams Manhole Builder Relationship Specialty Start Date End Date Jayme Parham MD [address] [place] [address] PCP - General Family Medicine 11/25/22 Jayme Parham MD 112 [facility] [address] [place] [address] PCP - ACO Reach 12/05/22 Mick Farmer DO [address] [place] [address] Referring Physician Ophthalmology 08/21/23 Renato Santacruz MD 290 [place] [address] Referring Physician Urology 08/21/23 Chuy Wood MD [address] [facility] Professional building 1 [place] [phone] Referring Physician Rheumatology 08/21/23 documented as of this encounter
--- OUTSIDE RECORDS SUMMARY | 2025-02-02 09:34 | XMS_ITS | Encounter Summary ---
Author Organization [facility] Address [address] [place] [address] Care Team Providers Care Ice Skater Name Role Phone Jayme Parham MD Primary Care Provider [phone] Jayme Parham MD Unavailable [phone] Mick Farmer DO Unavailable [phone] Renato Santacruz MD Unavailable [phone] Chuy Wood MD Unavailable [phone] Encounter Details Date Type Department Care Team (Late st Contact Info) Description 07/17/2023 Abstract [facility] B[facility] [address] [place] [phone] Alban Montilla MD 1400 [place], [place] [address] Social History Tobacco Use Types Packs/Day Years [...] often do you attend chur ch or christian services? Never 12/11/2022 Active Member of Clubs [...] Questionnaire-2 Score 0 02/06/2023 [facility] of Occupat ional Health - Occupational [...] in a correction (including now)? No 12/11/2022 Education Answer Date [...] FM [address] [place] [address] Jayme Parham MD [address] [address] (Fax) documented as of this encounter Visit Diagnoses Not on filedocumented in this encounter Additional Health Concerns Assessment Noted Time PHQ-9 Depression Total Score: 7 05/22/20 23 2:00 PM EST documented as of this encounter Care Teams Ice Skater Relationship Specialty Start Date End Date Jayme Parham MD 112 [place] [address] [place] [address] PCP - General Family Medicine 11/25/22 Jayme Parham MD 112 [facility] 100 [place] [address] PCP - ACO Reach 12/05/22 Mick Farmer DO [address] [place] [address] Referring Physician Ophthalmology 08/21/23 Renato Santacruz MD [address] [place] [address] Referring Physician Urology 08/21/23 Chuy Wood MD [address] [facility] [address] [place] [phone] Referring Physician Rheumatology 08/21/23 documented as of this encounter
--- OUTSIDE RECORDS SUMMARY | 2025-02-02 09:34 | XMS_ITS | Encounter Summary ---
Author Organization [facility] Address [address] [place] [address] Care Team Providers Care Wrapper Operator Name Role Phone Jayme Parham MD Primary Care Provider [phone] Jayme Parham MD Unavailable [phone] Mick Farmer DO Unavailable [phone] Renato Santacruz MD Unavailable [phone] Chuy Wood MD Unavailable [phone] Encounter Details Date Type Department Care Team (Late st Contact Info) Description 05/05/2024 Orders Only [facility] [address] [place] [address] [place], [place] Unexplained weight loss; Type 2 diabetes mellitus with stage 3a chronic kidney disease, without long-term current use of insulin (HCC); History of melanoma; Former smoker; Iron deficiency; Psoriatic arthropathy (HCC); Immunosuppressed status (HCC); Diverticulosis of large intestine without hemorrhage; History of pneumonectomy; [facility] current use of anticoagulant; 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 [...] week 04/08/2024 How often do you attend [facility] or alevism services? Never 04/08/2024 Do you belong to any clubs o r organizations such as zoroastrianism groups, unions, fraternal or athletic groups, or [...] Recorded Patient Health Questionnaire-2 Score 0 02/06/2023 [facility] of Occupat ional Health - Occupational Stress [...] any time in the past 12 m [facility], were you homeless or living in [...] Office Visit [facility] 100 112 [facility] 100 [place] [address] Jayme Parham MD 112 [facility] 100 [place] [address] documented as of this encounter Visit Diagnoses Diagnosis Unexplained weight loss Loss of weight Type 2 diabetes mellitus with stage 3a chronic kidney disease, without long-term current use of insulin (HCC) History of melanoma Personal history of malignant melanoma of dinkey skinner smoker Personal history of tobacco use, presenting hazards to health Iron deficiency 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) Psoriatic arthropathy Immunosuppressed status (HCC) Diverticulosis of large intestine without hemorrhage History of pneumonectomy 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, 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 (HCC) Atrial fibrillation Medication monitoring encounter Encounter for therapeutic drug monitoring documented in this encounter Additional Health Concerns Assessment Noted Time PHQ-9 Depression Total Score: 7 05/22/20 23 2:00 PM EST documented as of this encounter Care Teams Wrapper Operator Relationship Specialty Start Date End Date Jayme Parham MD [address] [address] (Fax) PCP - General Family Medicine 11/25/22 Jayme Parham MD 112 [facility] 100 [place] [address] (Fax) PCP - ACO Reach 12/05/22 Mick Farmer DO [address] [place] [address] Referring Physician Ophthalmology 08/21/23 Renato Santacruz MD 290 [place] [address] Referring Physician Urology 08/21/23 Chuy Wood MD [address] [facility] Professional [address] [phone] Referring Physician Rheumatology 08/21/23 documented as of this encounter
--- OUTSIDE RECORDS SUMMARY | 2025-02-02 09:34 | XMS_ITS | Encounter Summary ---
Author Organization [facility] Address [address] [place] [address] Care Team Providers Care Women'S Studies Lecturer Name Role Phone Jayme Perez MD Primary Care Provider [phone] Jayme Perez MD Unavailable [phone] Mick Farmer DO Unavailable [phone] Renato Santacruz MD Unavailable [phone] Chuy Wood MD Unavailable [phone] Encounter Details Date Type Department Care Team [...] attend chur ch or anglican services? Never 04/08/2024 Do you belong to any clubs o r organizations such as samaritan groups, unions, fraternal or athletic groups, or [...] 02/06/2023 [facility] of Occupat ional Health - Occupational Stress [...] in a long-term (including now)? No 12/11/2022 Housing Stability Vital [...] in the past 12 m [facility], were you homeless or living in a long-term (including now)? No 04/08/2024 Education Answer Date [...] 02/08/2025 10:30 AM EDT Office Visit [facility] [address] [facility] 100 [place] [address] Jayme Perez MD [address] [place] [address] documented as of this encounter Procedures Procedure Name Priority Date/Time Associated Diagnosis Comments XR ABDOMEN 1V 07/05/2024 11:19 PM EST documented in this encounter Results * XR ABDOMEN 1V (07/05/2024 11:19 PM EST) Anatomical Region Laterality Modality Other 07/05/2024 11:1 9 PM EST Narrative 07/05/2024 11:22 PM EST [address] [address] XRay Report Signed Patient: WILDA SEN MR#: [id number] : 1945 Acct:[id number] Age/Sex: 79 / F ADM Date: 07/05/24 Loc: RAD Attending Dr: Williams Jackson M.D. Ordering Physician: Williams Jackson M.D. Date of Service: 07/05/24 Procedure(s): XR abdomen 1V Accession Number(s): [id number] cc: Williams Jackson M.D.; JAYME PEREZ [address] [address] Patient Name: WILDA SEN MRN: [id number] date: 1945 Sex: F Assigned Patient Location: [facility] Current Patient Location: RAD Accession/Order Number: [id number] Exam Date: 07/05/2024 09:18 Report Date: 07/05/2024 [...] Dictated By: Varghese Garay M.D. Signed By: 07/05/242321 DD/ 18 TD/TT: Standards Engineer: Procedure Note Radiology, Radiologist, MD - 07/05/2024 [place] [address] XRay Report Signed Patient: WILDA SEN R#: [id number] : 1945cct:[id number] Age/Sex: 79 / FADM Date: 07/05/24 Loc: RAD Attending Dr: Williams Jackson M.D. Ordering Physician: Williams Jackson M.D. Date of Service: 07/05/24 Procedure(s): XR abdomen 1V Accession Number(s): [id number] cc: Williams Jackson M.D.; JAYME PEREZ [place] [address] Patient Name: WILDA SEN MRN: [id number] date: 1945 Sex: F Assigned Patient Location: [facility] Current Patient Location: [facility] Accession/Order Number: [id number] Exam Date: 07/05/2024 09:18 Report Date: 07/05/2024 [...] Garay M.D. Signed By:07/05/242321 DD/ 18 TD/TT: Standards Engineer: us Generic External Data Provider [facility] Final Result documented in this encounter Visit Diagnoses Not on filedocumented in this encounter Additional Health Concerns Assessment Noted Time PHQ-9 Depression Total Score: 7 05/22/20 23 2:00 PM EST documented as of this encounter Care Teams Women'S Studies Lecturer Relationship Specialty Start Date End Date Jayme Perez MD [address] [facility] [address] [place] [address] PCP - General Family Medicine 11/25/22 Jayme Perez MD [address] [facility] [address] [place] [address] PCP - ACO Reach 12/05/22 Mick Farmer DO [address] [place] [address] Referring Physician Ophthalmology 08/21/23 Renato Santacruz MD [address] [place] [address] Referring Physician Urology 08/21/23 Chuy Wood MD [address] [facility] Professional building 1 [place] [address] Referring Physician Rheumatology 08/21/23 documented as of this encounter
--- OUTSIDE RECORDS SUMMARY | 2025-02-02 09:34 | XMS_ITS | Clinical Summary ---
Author Organization [facility] Address [address] [place] [address] Phone Care Team Providers Care Creative Strategist Name Role Phone Jayme Parham MD Primary Care Provider [phone] Social History Tobacco Use Types Packs/Day Years Used Date Smoking Tobacco: Never Assessed Comments Unknown Sex and Gender Information Value Date Recorded Sex Assigned at Not on file Legal Sex Female 1:42 PM EST Gender Identity Not on file Sexual Orientation Not on file Plan of Treatment Not on file Care Teams Creative Strategist Relationship Specialty Start Date End Date Jayme Parham MD [address] [place] [address] PCP - General 11/21/14
--- OUTSIDE RECORDS SUMMARY | 2025-02-02 09:34 | XMS_ITS | Encounter Summary ---
Author Organization [facility] Address [address] [place] [address] Care Team Providers Care Patient Transportation Driver Name Role Phone Jayme Parham MD Primary Care Provider [phone] Jamye Parham MD Unavailable [phone] Mick Farmer DO Unavailable [phone] Renato Santacruz MD Unavailable [phone] Chuy Wood MD Unavailable [phone] Encounter Details Date Type Department Care Team (Late st Contact Info) Description 02/11/2023 Orders Only [facility] [address] [place] [address] Jayme Parham MD 112 [facility] 100 [place] [address] Social History Tobacco Use Types [...] attend chur ch or faith services? Never 12/11/2022 Active Member of Clubs [...] Recorded Patient Health Questionnaire-2 Score 0 02/06/2023 [facility] of Occupat ional Health - Occupational [...] CI FM 100 [address] [facility] [address] [place] [address] Jayme Parham MD 112 [facility] [address] [place] [address] documented as of this encounter Procedures Procedure Name Priority Date/Time Associated Diagnosis Comments XR IVP Routine 02/11/2023 2:09 PM EDT documented in this encounter Results * XR IVP (02/11/2023 2:09 PM EDT) Anatomical Region Laterality Modality Radiographic Yin ging Jayme Parham MD IMG XR PROCEDURES Final Resu lt documented in this encounter Visit Diagnoses Not on filedocumented in this encounter Care Teams Patient Transportation Driver Relationship Specialty Start Date End Date Jayme Parham MD 112 [facility] [address] [place] [address] PCP - General Family Medicine 11/25/22 Jayme Parham MD 112 [facility] [address] [place] [address] PCP - ACO Reach 12/05/22 Mick Farmer DO [address] [place] [address] Referring Physician Ophthalmology 08/21/23 Renato Santacruz MD [address] [place] [address] Referring Physician Urology 08/21/23 Chuy oWod MD [address] [facility] Professional building [address] [place] [phone] Referring Physician Rheumatology 08/21/23 documented as of this encounter
--- OUTSIDE RECORDS SUMMARY | 2025-02-02 09:34 | XMS_ITS | Encounter Summary ---
Author Organization [facility] Address [address] [place] [address] Care Team Providers Care Tool Grinding Technician Name Role Phone Jayme Parham MD Primary Care Provider Jayme Parham MD Unavailable [phone] Mick Farmer DO Unavailable [phone] Renato Santacruz MD Unavailable [phone] Chuy Wood MD Unavailable [phone] Encounter Details Date Type Department Care Team (Late st Contact Info) Description 01/23/2023 Abstract [facility] B[facility] [address] [place] [address] Jayme Parham MD 112 [facility] [address] [place] [address] Social History Tobacco Use Types [...] Recorded Patient Health Questionnaire-2 Score 0 12/12/2022 [facility] of Occupat ional Health - Occupational [...] [address] [place] [address] Jayme Parham MD [address] [place] [address] documented as of this encounter Visit Diagnoses Not on filedocumented in this encounter Care Teams Tool Grinding Technician Relationship Specialty Start Date End Date Jayme Parham MD [address] [place] [address] PCP - General Family Medicine 11/25/22 Jayme Parham MD [address] [place] [address] PCP - ACO Reach 12/05/22 Mick Farmer DO [address] [place] [address] Referring Physician Ophthalmology 08/21/23 Renato Santacruz MD 290 [place] [address] Referring Physician Urology 08/21/23 Chuy Wood MD [address] [facility] Professional building 1 [place] [address] Referring Physician Rheumatology 08/21/23 documented as of this encounter
--- OUTSIDE RECORDS SUMMARY | 2025-02-02 09:34 | XMS_ITS | Encounter Summary ---
Author Organization [facility] Address [address] [place] [address] Care Team Providers Care Double Spindle Shaper Operator Name Role Phone Jayme Perez MD Primary Care Provider [phone] Jayme Perez MD Unavailable [phone] Mick Farmer DO Unavailable [phone] Renato Santacruz MD Unavailable [phone] Radames Wood MD Unavailable [phone] Encounter Details Date Type Department Care Team [...] Recorded Patient Health Questionnaire-2 Score 0 02/06/2023 [facility] [place] - Occupational Stress Questionnaire Answer Date Recorded [...] place to sleep or slept in a snf (including now)? No 12/11/2022 Education Answer Date [...] 02/08/2025 10:30 AM EDT Office Visit [facility] 100 112 [facility] [address] [place] [address] Jayme Perez MD 112 [facility] 100 [place] [address] documented as of this encounter Procedures Procedure Name Priority Date/Time Associated Diagnosis Comments XR DEXA AXIAL SKELETON 01/14/2024 3:50 PM EDT documented in this encounter Results * XR DEXA AXIAL SKELETON (01/14/2024 3:50 PM EDT) Anatomical Region Laterality Modality Other 01/14/2024 3:50 PM EDT Narrative 01/14/2024 3:53 PM EDT The [address] [place] [address] XRay Report Signed Patient: WILDA SEN MR#: [id number] : 1945 Acct:[id number] Age/Sex: 78 / F ADM Date: 01/14/24 Loc: CASANDRA Attending Dr: RADAMES WOOD Ordering Physician: RADAMES WOOD Date of Service: 01/14/24 Procedure(s): XR DEXA axial skeleton Accession Number(s): [id number] cc: JAYME PEREZ ; RADAMES WOOD [address] [address] Patient Name: WILDA SEN MRN: [id number] date: 1945 Sex: F Assigned Patient Location: [facility] Current Patient Location: [facility] Accession/Order Number: [id number] Exam Date: 01/14/2024 12:48 Report Date: 01/14/2024 [...] prevention and treatment of osteoporosis. Osteoporos Int. 2021;33(10):2019-3706. doi: 10.1007/b83952-477-82053-j. Epub 2021Nov 08. Erratum in: Osteoporos Int. 2021Feb 07;: PMID: [id number]; PMCID: [id number]. Electronically authenticated by: VARGHESE GARAY Date: 01/14/2024 15:50 Dictated By: Varghese Garay M.D. Signed By: 01/14/24 1553 DD/ 1550 TD/TT: Correctional Case Manager: Procedure Note Radiology, Radiologist, MD - 01/14/2024 The [place] [id number] XRay Report Signed Patient: WILDA SEN R#: [id number] : 1945cct:[id number] Age/Sex: 78 / FADM Date: 01/14/24 Loc: RAD Attending Dr: RADAMES WOOD Ordering Physician: RADAMES WOOD Date of Service: 01/14/24 Procedure(s): XR DEXA axial skeleton Accession Number(s): [id number] cc: JAYME PEREZ ; RADAMES WOOD The [address] [address] Patient Name: WILDA SEN MRN: [id number] date: 1945 Sex: F Assigned Patient Location: [facility] Current Patient Location: [facility] Accession/Order Number: [id number] Exam Date: 01/14/2024 12:48 Report Date: 01/14/2024 [...] 10-year hip fracture risk >= 3% or i93-tliy major osteoporosis-related fracture risk >= 20% (i.e., [...] to prevention and treatment of osteoporosis.Osteoporos Int. 2021;33(10):8712-0983. doi: 10.1007/h07603-089-04466-k. Epub . Erratum in: Osteoporos Int. 2021Feb 07;: PMID: [id number]; PMCID: [id number]. Electronically authenticated by: VARGHESE GARAY Date: 01/14/2024 15:50 Dictated By: Varghese Garay M.D. Signed By:01/14/24 1553 DD/ 1550 TD/TT: Correctional Case Manager: us Generic External Data Provider [facility] Final Result documented in this encounter Visit Diagnoses Not on filedocumented in this encounter Additional Health Concerns Assessment Noted Time PHQ-9 Depression Total Score: 7 05/22/20 23 2:00 PM EST documented as of this encounter Care Teams Double Spindle Shaper Operator Relationship Specialty Start Date End Date Jayme Perez MD [address] [address] PCP - General Family Medicine 11/25/22 Jayme Perez MD [address] [address] PCP - ACO Reach 12/05/22 Mick Farmer DO [address] [place] [address] 300 [place] [address] Referring Physician Ophthalmology 08/21/23 Renato Santacruz MD [address] [place] [address] Referring Physician Urology 08/21/23 Radames Wood MD [address] [facility] Professional [address] [address] Referring Physician Rheumatology 08/21/23 documented as of this encounter
--- OUTSIDE RECORDS SUMMARY | 2025-02-02 09:34 | XMS_ITS | Encounter Summary ---
Author Organization [facility] Address [address] [place] [address] Care Team Providers Care Beam Machine Operator Name Role Phone Jayme Parham MD Primary Care Provider [phone] Jayme Parham MD Unavailable [phone] Mick Farmer DO Unavailable [phone] Renato Santacruz MD Unavailable [phone] Chuy Wood MD Unavailable [phone] Encounter Details Date Type Department Care Team (Latest Contact Info) Description 01/20/2025 Travel Social History Tobacco Use Types Packs/Day [...] How often do you attend chur or muslim services? Never 04/08/2024 Do you belong to any clubs o r organizations such as confucianist groups, unions, fraternal or athletic groups, or [...] Recorded Patient Health Questionnaire-2 Score 0 11/04/2024 [facility] - Occupational Stress Questionnaire [...] place to sleep or slept in a longterm (including now)? No 12/11/2022 Housing Stability Vital [...] time in the past 12 m [facility], were you homeless or living in a longterm (including now)? No 04/08/2024 Education Answer Date [...] FM [address] [place] [address] Jayme Parham MD [address] [place] [address] documented as of this encounter Visit Diagnoses Not on filedocumented in this encounter Additional Health Concerns Assessment Noted Time PHQ-9 Depression Total Score: 7 11/05/19 25 1:00 PM EDT documented as of this encounter Care Teams Beam Machine Operator Relationship Specialty Start Date End Date Jayme Parham MD [address] [place] [address] (Fax) PCP - General Family Medicine 11/25/22 Jayme Parham MD [address] [place] [address] PCP - ACO Reach 12/05/22 Mick Farmer DO [address] [place] [address] Referring Physician Ophthalmology 08/21/23 Renato Santacruz MD 290 [place] [address] Referring Physician Urology 08/21/23 Chuy Wood MD [address] [facility] Professional building 1 [place] [phone] Referring Physician Rheumatology 08/21/23 documented as of this encounter
--- OUTSIDE RECORDS SUMMARY | 2025-02-02 09:34 | XMS_ITS | Encounter Summary ---
Author Organization [facility] Address [address] [place] [address] Care Team Providers Care Audio Video Mechanic Name Role Phone Jayme Perez MD Primary Care Provider [phone] Jayme Perez MD Unavailable [phone] Mick Farmer DO Unavailable [phone] Renato Santacruz MD Unavailable [phone] Chuy Wood MD Unavailable [phone] Encounter Details Date Type Department Care Team (Late st Contact Info) Description 04/23/2024 Clinisync Result Encounter [facility] External Department Unsolicited Jayme Perez MD 112 [facility] 100 [place] [address] Social History Tobacco Use Types [...] How often do you attend chur or methodist services? Never 04/08/2024 Do you [...] Recorded Patient Health Questionnaire-2 Score 0 02/06/2023 [facility] of Occupat ional Health - Occupational Stress [...] a skilled nursing (including now)? No 12/11/2022 Housing Stability Vital Sign Answer Stefan e Recorded In the last 12 months, was t here a time when you were not able to pay the mortgage or rent on time? No 04/08/2024 In the past 12 months, how m any times have you moved where you were living? 0 04/08/2024 At any time in the past 12 m [facility], were you homeless or living in a skilled nursing (including now)? No 04/08/2024 Education Answer Date [...] Visit [facility] [address] [facility] 100 [place] [address] Jayme Perez MD 112 [facility] 100 [place] [address] documented as of this encounter Procedures Procedure Name Priority Date/Time Associated Diagnosis Comments CT ABDOMEN PELVIS W CON 04/23/2024 4:45 AM EDT documented in this encounter Results * CT ABDOMEN PELVIS W CON (04/23/2024 4:45 AM EDT) Anatomical Region Laterality Modality Other 04/23/2024 4:45 AM EDT Narrative 04/23/2024 4:48 AM EDT [address] [address] [address] Scan Report Signed Patient: WILDA SEN MR#: [id number] : 1945 Acct:[id number] Age/Sex: 79 / F ADM Date: 04/22/24 Loc: LAB Attending Dr: JAYME PEREZ Ordering Physician: JAYME PEREZ Date of Service: 04/22/24 Procedure(s): CT abdomen pelvis w con Accession Number(s): [id number] cc: JAYME PEREZ [address] [address] Patient Name: WILDA SEN MRN: [id number] date: 1945 Sex: F Assigned Patient Location: LAB Current Patient Location: Accession/Order Number: [id number] Exam Date: 04/22/2024 12:40 Report Date: 04/23/2024 [...] Dictated By: Varghese Garay M.D. Signed By: 04/23/24447 DD/ 4 TD/TT: Camp Housekeeper: Procedure Note Radiology, Radiologist, MD - 04/23/2024 [place] [address] CT Scan Report Signed Patient: WILDA SEN JMR#: [id number] : 1945cct:[id number] Age/Sex: 79 / FADM Date: 04/22/24 Loc: LAB Attending Dr: JAYME PEREZ Ordering Physician: JAYME PEREZ Date of Service: 04/22/24 Procedure(s): CT abdomen pelvis w con Accession Number(s): [id number] cc: JAYME PEREZ The [place] [address] Patient Name: WILDA SEN MRN: [id number] date: 1945 Sex: F Assigned Patient Location: LAB Current Patient Location: Accession/Order Number: [id number] Exam Date: 04/22/2024 12:40 Report Date: 04/23/2024 [...] Garay M.D. Signed By:04/23/24447 DD/ 4 TD/TT: Camp Housekeeper: Jayme Perez MD [facility] Final Resu lt documented in this encounter Visit Diagnoses Not on filedocumented in this encounter Additional Health Concerns Assessment Noted Time PHQ-9 Depression Total Score: 7 05/22/20 23 2:00 PM EST documented as of this encounter Care Teams Audio Video Mechanic Relationship Specialty Start Date End Date Jayme Perez MD [address] [place] [address] PCP - General Family Medicine 11/25/22 Jayme Perez MD [address] [place] [address] PCP - ACO Reach 12/05/22 Mick Farmer DO [address] [place] [address] Referring Physician Ophthalmology 08/21/23 Renato Santacruz MD 290 [place] [address] Referring Physician Urology 08/21/23 Chuy Wood MD [address] [facility] Professional building [address] [place] [phone] Referring Physician Rheumatology 08/21/23 documented as of this encounter
--- OUTSIDE RECORDS SUMMARY | 2025-02-02 09:34 | XMS_ITS | Encounter Summary ---
Author Organization [facility] Address [address] [place] [address] Care Team Providers Care Molding Technician Name Role Phone Jayme Parham MD Primary Care Provider [phone] Jayme Parham MD Unavailable [phone] Mick Farmer DO Unavailable [phone] Renato Santacruz MD Unavailable [phone] Chuy Wood MD Unavailable [phone] Encounter Details Date Type Department Care Team (Late st Contact Info) Description 11/17/2023 Orders Only [facility] [address] [place] [address] Jayme Parham MD 112 [facility] 100 [place] [address] Social History Tobacco Use Types [...] place to sleep or slept in a fci (including now)? No 12/11/2022 Education Answer Date [...] FM [address] [place] [address] Jayme Parham MD [address] [place] [address] documented as of this encounter Visit Diagnoses Not on filedocumented in this encounter Additional Health Concerns Assessment Noted Time PHQ-9 Depression Total Score: 7 05/22/20 23 2:00 PM EST documented as of this encounter Care Teams Molding Technician Relationship Specialty Start Date End Date Jayme Parham MD [address] [place] [address] PCP - General Family Medicine 11/25/22 Jayme Parham MD 112 [facility] [address] [place] [address] PCP - ACO Reach 12/05/22 Mick Farmer DO [address] [place] [address] Referring Physician Ophthalmology 08/21/23 Renato Santacruz MD [address] [place] [address] Referring Physician Urology 08/21/23 Chuy Wood MD [address] [facility] Professional building [address] [place] [phone] Referring Physician Rheumatology 08/21/23 documented as of this encounter
--- OUTSIDE RECORDS SUMMARY | 2025-02-02 09:34 | XMS_ITS | Encounter Summary ---
Author Organization [facility] Address [address] [place] [address] Care Team Providers Care Station Installer Name Role Phone Jayme Parham MD Primary Care Provider [phone] Jayme Parham MD Unavailable [phone] Mick Farmer DO Unavailable [phone] Renato Santacruz MD Unavailable [phone] Chuy Wood MD Unavailable [phone] Encounter Details Date Type Department Care Team (Late st Contact Info) Description 01/27/2023 Orders Only [facility] [address] [place] [address] Jayme Parham MD 112 [facility] 100 [place] [address] Social History Tobacco Use Types [...] Recorded Patient Health Questionnaire-2 Score 0 12/12/2022 [facility] of Occupat ional Health - [...] place to sleep or slept in a detention (including now)? No 12/11/2022 Education Answer Date [...] FM [address] [place] [address] Jayme Parham MD 112 [facility] [address] [place] [address] documented as of this encounter Procedures Procedure Name Priority Date/Time Associated Diagnosis Comments PROTHROMBIN TIME-INR Routine 01/24/2023 3:18 PM EDT documented in this encounter Results * Protime-INR (01/24/2023 3:18 PM EDT) Blood Venous blood specimen / Unknown Jayme Parham MD LAB BLOOD ORDERABLES Final R esult documented in this encounter Visit Diagnoses Not on filedocumented in this encounter Care Teams Station Installer Relationship Specialty Start Date End Date Jayme Parham MD [address] [place] [address] PCP - General Family Medicine 11/25/22 Jayme Parham MD [address] [address] PCP - ACO Reach 12/05/22 Mick Farmer DO [address] [place] [address] Referring Physician Ophthalmology 08/21/23 Renato Santacruz MD [address] [place] [address] Referring Physician Urology 08/21/23 Chuy Wood MD [address] [facility] Professional building [address] [place] [phone] Referring Physician Rheumatology 08/21/23 documented as of this encounter
--- OUTSIDE RECORDS SUMMARY | 2025-02-02 09:34 | XMS_ITS | Encounter Summary ---
Author Organization [facility] Address [address] [place] [address] Care Team Providers Care Color Shop Helper Name Role Phone Jayme Parham MD Primary Care Provider [phone] Jayme Parham MD Unavailable [phone] Mick Farmer DO Unavailable [phone] Renato Santacruz MD Unavailable [phone] Chuy Wood MD Unavailable [phone] Encounter Details Date Type Department Care Team (Late st Contact Info) Description 03/05/2023 Orders Only [facility] [address] [place] [address] Jayme Parham MD 112 [facility] 100 [place] [address] Social History Tobacco Use Types [...] FM [address] [place] [address] Jayme Parham MD 112 [facility] [address] [place] [address] documented as of this encounter Procedures Procedure Name Priority Date/Time Associated Diagnosis Comments PROTHROMBIN TIME-INR Routine 02/18/2023 10:07 AM EDT documented in this encounter Results * Protime-INR (02/18/2023 10:07 AM EDT) Blood Venous blood specimen / Unknown Jayme Parham MD LAB BLOOD ORDERABLES Edited Result - Final EXTERNAL LAB documented in this encounter Visit Diagnoses Not on filedocumented in this encounter Care Teams Color Shop Helper Relationship Specialty Start Date End Date Jayme Parham MD [address] [place] [address] PCP - General Family Medicine 11/25/22 Jayme Parham MD [address] [place] [address] PCP - ACO Reach 12/05/22 Mick Farmer DO [address] [place] [address] Referring Physician Ophthalmology 08/21/23 Renato Santacruz MD [address] [place] [address] Referring Physician Urology 08/21/23 Chuy Wood MD [address] [facility] Professional building 1 [place] [address] Referring Physician Rheumatology 08/21/23 documented as of this encounter
--- OUTSIDE RECORDS SUMMARY | 2025-02-02 09:34 | XMS_ITS | Encounter Summary ---
Author Organization [facility] Address [address] [place] [address] Care Team Providers Care Certified Control Systems Technician Name Role Phone Jayme Parham MD Primary Care Provider [phone] Jayme Parham MD Unavailable [phone] Mick Farmer DO Unavailable [phone] Renato Santacruz MD Unavailable [phone] Chuy Wood MD Unavailable [phone] Encounter Details Date Type Department Care Team (Late st Contact Info) Description 04/19/2024 Orders Only [facility] [address] [place] [address] Jayme Parham MD [address] [place] [address] Social History Tobacco Use Types Packs/Day Years [...] How often do you attend chur or cheondoism services? Never 04/08/2024 Do you belong to any clubs o r organizations such as anglican groups, unions, fraternal or athletic groups, or [...] Recorded Patient Health Questionnaire-2 Score 0 02/06/2023 [facility] of Occupat ional Health [...] any time in the past 12 m [facility], were you homeless or living [...] Visit [facility] 100 [address] [facility] [address] [place] [address] Jayme Parham MD 112 [facility] 100 [place] [address] (Fax) documented as of this encounter Visit Diagnoses Not on filedocumented in this encounter Additional Health Concerns Assessment Noted Time PHQ-9 Depression Total Score: 7 05/22/20 23 2:00 PM EST documented as of this encounter Care Teams Certified Control Systems Technician Relationship Specialty Start Date End Date Jayme Parham MD 112 [facility] 100 [place] [address] (Fax) PCP - General Family Medicine 11/25/22 Jayme Parham MD 112 [facility] 100 [place] [address] (Fax) PCP - ACO Reach 12/05/22 Mick Farmer DO [address] [place] [address] Referring Physician Ophthalmology 08/21/23 Renato Santacruz MD [address] [place] [address] Referring Physician Urology 08/21/23 Chuy Wood MD [address] [facility] Professional building 1 [place] [address] Referring Physician Rheumatology 08/21/23 documented as of this encounter
--- OUTSIDE RECORDS SUMMARY | 2025-02-02 09:34 | XMS_ITS | Encounter Summary ---
Author Organization [facility] Address [address] [place] [address] Care Team Providers Care Motor Brakeman Name Role Phone Jayme Parham MD Primary Care Provider Jayme Parham MD Unavailable [phone] Mick Farmer DO Unavailable [phone] Renato Santacruz MD Unavailable [phone] Chuy Wood MD Unavailable [phone] Encounter Details Date Type Department Care Team (Late st Contact Info) Description 03/19/2023 Abstract [facility] [address] [place] [address] Jayme Parham MD 112 [facility] [address] [place] [address] Social History Tobacco Use Types [...] attend chur ch or pentecostalism services? Never 12/11/2022 Active Member of Clubs [...] Recorded Patient Health Questionnaire-2 Score 0 02/06/2023 [facility] of Occupat ional Health - [...] in a fdc (including now)? No 12/11/2022 Education Answer Date [...] FM [address] [place] [address] Jayme Parham MD [address] [place] [address] documented as of this encounter Visit Diagnoses Not on filedocumented in this encounter Care Teams Motor Brakeman Relationship Specialty Start Date End Date Jayme Parham MD [address] [place] [address] (Fax) PCP - General Family Medicine 11/25/22 Jayme Parham MD 112 [facility] [address] [place] [address] PCP - ACO Reach 12/05/22 Mick Farmer DO [address] [place] [address] Referring Physician Ophthalmology 08/21/23 Renato Santacruz MD [address] [place] [address] Referring Physician Urology 08/21/23 Chuy Wood MD [address] [facility] Professional building 1 [place] [address] Referring Physician Rheumatology 08/21/23 documented as of this encounter
--- OUTSIDE RECORDS SUMMARY | 2025-02-02 09:34 | XMS_ITS | Encounter Summary ---
Author Organization [facility] Address [address] [place] [address] Care Team Providers Care Leadership Recruiter Name Role Phone Jayme Parham MD Primary Care Provider [phone] Jayme Parham MD Unavailable [phone] Mick Farmer DO Unavailable [phone] Renato Santacruz MD Unavailable [phone] Chuy Wood MD Unavailable [phone] Encounter Details Date Type Department Care Team (Late st Contact Info) Description 01/13/2025 Orders Only [facility] [address] [place] [address] Magalis Harris, MA Vertigo; 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 (HCC); Unsteady gait [...] often do you attend chur ch or pentecostal services? Never 04/08/2024 Do you belong to any clubs o r organizations such as confucianism groups, unions, fraternal or athletic groups, or [...] Recorded Patient Health Questionnaire-2 Score 0 11/04/2024 [facility] [place] of Occupat ional Health - Occupational Stress [...] place to sleep or slept in a usp (including now)? No 12/11/2022 Housing Stability Vital [...] in the past 12 m [facility], were you homeless or living in a usp (including now)? No 04/08/2024 Education Answer Date [...] FM [address] [place] [address] Jayme Parham MD 112 [facility] [address] [place] [address] documented as of this encounter Visit Diagnoses Diagnosis Vertigo Dizziness and giddiness 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 (HCC) Atrial fibrillation Unsteady gait Abnormality of gait documented in this encounter Additional Health Concerns Assessment Noted Time PHQ-9 Depression Total Score: 7 11/05/19 25 1:00 PM EDT documented as of this encounter Care Teams Leadership Recruiter Relationship Specialty Start Date End Date Jayme Parham MD [address] [place] [facility] 100 [place] [address] (Fax) PCP - General Family Medicine 11/25/22 Jayme Parham MD [address] [place] [facility] 100 [place] [address] (Fax) PCP - ACO Reach 12/05/22 Mick Farmer DO 278 [facility] [address] [place] [address] Referring Physician Ophthalmology 08/21/23 Renato Santacruz MD 290 [place] [address] Referring Physician Urology 08/21/23 Chuy Wood MD [address] [facility] Professional building 1 [place] [address] Referring Physician Rheumatology 08/21/23 documented as of this encounter
--- OUTSIDE RECORDS SUMMARY | 2025-02-02 09:34 | XMS_ITS | Clinical Summary ---
Author Organization The [facility] Address [address] [place] [address] Care Team Providers Care Freight Dispatcher Name Role Phone Unavailable Primary Care Provider [...] 1996 Fall Risk Screening 2011 COVID-19 Vaccine (1 - 2023-2 5 season) 2024 Influenza Vaccine (#1) 2025 HIB Vaccines Aged Out No longer [...]
--- OUTSIDE RECORDS SUMMARY | 2025-02-02 09:34 | XMS_ITS | Encounter Summary ---
Author Organization [facility] Address [address] [place] [address] Care Team Providers Care Technology Sales Specialist Name Role Phone Jayme Parham MD Primary Care Provider + [phone] Jayme Parham MD Unavailable [phone] Mick Farmer DO Unavailable [phone] Renato Santacruz MD Unavailable +[phone] Chuy Wood MD Unavailable [phone] Encounter Details Date Type Department Care Team (Late st Contact Info) Description 01/21/2024 Orders Only [facility] [address] [place] [address] Chuy Wood MD [address] [facility] Professional building 1 [place] [phone] Social History Tobacco Use Types Packs/Day Years [...] Recorded Patient Health Questionnaire-2 Score 0 02/06/2023 [facility] Occupat ional Health - [...] in a longterm (including now)? No 12/11/2022 Education Answer Date [...] CI [address] [place] [address] Jayme Parham MD 112 [facility] [address] [place] [address] documented as of this encounter Procedures Procedure [...] documented as of this encounter Care Teams Technology Sales Specialist Relationship Specialty Start Date End Date Jayme Parham MD 112 [facility] [address] [place] [address] PCP - General Family Medicine 11/25/22 Jayme Parham MD 112 [facility] 100 [place] [address] PCP - ACO Reach 12/05/22 Mick Farmer DO [address] [place] [address] Referring Physician Ophthalmology 08/21/23 Renato Santacruz MD [address] [place] [address] Referring Physician Urology 08/21/23 Chuy Wood MD [address] [facility] Professional building [address] [place] [phone] Referring Physician Rheumatology 08/21/23 documented as of this encounter
--- OUTSIDE RECORDS SUMMARY | 2025-02-02 09:34 | XMS_ITS | Encounter Summary ---
Author Organization [facility] Address [address] [place] [address] Care Team Providers Care Metal Control Worker Name Role Phone Jayme Parham MD Primary Care Provider [phone] Jayme Parham MD Unavailable [phone] Mick Farmer DO Unavailable [phone] Renato Santacruz MD Unavailable [phone] Chuy Wood MD Unavailable [phone] Encounter Details Date Type Department Care Team (Late st Contact Info) Description 07/28/2023 Abstract [facility] [address] [place] [phone] Lou Glover, TRAIN DRIVER [address] [facility] [place] [address] Social History Tobacco Use Types Packs/Day Years [...] Recorded Patient Health Questionnaire-2 Score 0 02/06/2023 [facility] Occupat ional Health - Occupational [...] in a usp (including now)? No 12/11/2022 Education Answer Date [...] FM [address] [place] [address] Jayme Parham MD [address] [facility] [address] [place] [address] (Fax) documented as of this encounter Visit Diagnoses Not on filedocumented in this encounter Additional Health Concerns Assessment Noted Time PHQ-9 Depression Total Score: 7 05/22/20 23 2:00 PM EST documented as of this encounter Care Teams Metal Control Worker Relationship Specialty Start Date End Date Jayme Parham MD [address] [place] [address] PCP - General Family Medicine 11/25/22 Jayme Parham MD 112 [facility] [address] [place] [address] PCP - ACO Reach 12/05/22 Mick Farmer DO [address] [place] [address] Referring Physician Ophthalmology 08/21/23 Renato Santacruz MD [address] [place] [phone] Referring Physician Urology 08/21/23 Chuy Wood MD [address] [facility] Professional building 1 [place] [address] Referring Physician Rheumatology 08/21/23 documented as of this encounter
--- OUTSIDE RECORDS SUMMARY | 2025-02-02 09:34 | XMS_ITS | Encounter Summary ---
Author Organization [facility] Address [address] [place] [address] Care Team Providers Care Brand Specialist Name Role Phone Jayme Parham MD Primary Care Provider [phone] Jayme Parham MD Unavailable [phone] Mick Farmer DO Unavailable [phone] Renato Santacruz MD Unavailable [phone] Chuy Wood MD Unavailable [phone] Encounter Details Date Type Department Care Team (Late st Contact Info) Description 07/16/2023 Orders Only [facility] FM [address] [place] [address] Alban Montilla MD [address] [place], [place] [id number] Social History Tobacco Use Types Packs/Day Years [...] Health Questionnaire-2 Score 0 02/06/2023 [facility] - Occupational Stress Questionnaire Answer Date [...] a care home (including now)? No 12/11/2022 Education Answer Date [...] FM [address] [place] [address] Jayme Parham MD [address] [facility] [address] [place] [address] documented as of this encounter Procedures Procedure Name Priority Date/Time Associated Diagnosis Comments XR CHEST 1 VIEW Routine 07/15/2023 11:38 AM EST ECG 12-LEAD Routine 07/15/2023 11:36 AM EST documented in this encounter Results * XR chest 1 view (07/15/2023 11:38 AM EST) Anatomical Region Laterality Modality Chest Radiographic Yin ging Lobito Rodriguez MD IMG XR PROCEDURES Final Result * ECG 12 lead (07/15/2023 11:36 AM EST) Alban Montilla MD ECG ORDERABLES Final Resul t documented in this encounter Visit Diagnoses Not on filedocumented in this encounter Additional Health Concerns Assessment Noted Time PHQ-9 Depression Total Score: 7 05/22/20 23 2:00 PM EST documented as of this encounter Care Teams Brand Specialist Relationship Specialty Start Date End Date Jayme Parham MD [address] [place] [address] PCP - General Family Medicine 11/25/22 Jayme Parham MD [address] [place] [address] (Fax) PCP - ACO Reach 12/05/22 Mick Farmer DO [address] [place] [address] Referring Physician Ophthalmology 08/21/23 Renato Santacruz MD [address] [place] [address] Referring Physician Urology 08/21/23 Chuy Wood MD [address] [facility] Professional building 1 [place] [phone] Referring Physician Rheumatology 08/21/23 documented as of this encounter
--- NOTE | 2025-02-02 09:41 | XR_ITS ---
The [address] [address] Patient Name: KASEY SEN MRN: [id number] date: 1945 Sex: F Assigned Patient Location: [facility] Current Patient Location: [facility] Accession/Order Number: [id number] Exam Date: 02/02/2025 10:29 Report Date: 02/02/2025 10:30 At the request of: EUGENIA SHEPHERD MD Procedure: XR abdomen 1V KUB: CLINICAL INFORMATION: Kidney stone follow-up COMPARISON: CT abdomen and pelvis 01/31/2025 FINDINGS: Left-sided double-J ureteral stent is in place. No definite stone is seen along the course of the stent. Presumed phleboliths are seen within the pelvis. Subtle bilateral nephrolithiasis is present largest measuring 3 mm within the left kidney. No bowel obstruction or free air. Osseous structures demonstrate degenerative change. XR/XR abdomen 1V IMPRESSION: BILATERAL NEPHROLITHIASIS WITH LEFT-SIDED DOUBLE-J URETERAL STENT IN PLACE. NO DEFINITE STONE IS SEEN ALONG THE COURSE OF THE STENT. Impression dictated by: Kevan Zhou Jr., D.O. 02/02/2025 10:30 AM Dictation Location: [place] [address] Electronically authenticated by: [id number] Y Date: 02/02/2025 10:30
== END 2025-02-02 09:30 | disposition home or self-care (01) ==
LOC: RAD 09:32
PROVIDERS: PCP Family Medicine; Visit Provider Urology
DX: N20.0 Calculus of kidney (principal)
CPT/HCPCS: 74018

== ENCOUNTER 2025-02-04 12:18 | Observation (INO) | payer MEDICARE, SELFPAY ==
[2025-02-04] VITALS (31 sets, daily range): BP systolic 95–114; BP diastolic 56–92; PULSE 61–160; TEMP 36.5; O2SAT 97–100; BMI 20.9
--- OUTSIDE RECORDS SUMMARY | 2025-02-04 12:24 | XMS_ITS | Encounter Summary ---
Author Organization [facility] Address [address] [place] [address] Care Team Providers Care Big Data Engineer Name Role Phone Jayme Parham MD Primary Care Provider [phone] Jayme Parham MD Unavailable [phone] Mick Farmer DO Unavailable [phone] Renato Santacruz MD Unavailable [phone] Chuy Wood MD Unavailable [phone] Encounter Details Date Type Department Care Team (Late st Contact Info) Description 08/12/2023 Abstract [facility] [address] [place] [address] Jayme Parham MD 112 [facility] [address] [place] [address] Social History Tobacco Use Types [...] Recorded Patient Health Questionnaire-2 Score 0 02/06/2023 [facility] of Occupat ional Health - Occupational [...] 02/08/2025 10:30 AM EDT Office Visit [facility] [address] [place] [address] Jayme Parham MD [address] [place] [address] documented as of this encounter Visit Diagnoses Not on filedocumented in this encounter Additional Health Concerns Assessment Noted Time PHQ-9 Depression Total Score: 7 05/22/20 23 2:00 PM EST documented as of this encounter Care Teams Big Data Engineer Relationship Specialty Start Date End Date Jayme Parham MD [address] [place] [address] PCP - General Family Medicine 11/25/22 Jayme Parham MD [address] [place] [address] PCP - ACO Reach 12/05/22 Mick Farmer DO [address] [place] [address] Referring Physician Ophthalmology 08/21/23 Renato Santacruz MD [address] [place] [address] Referring Physician Urology 08/21/23 Chuy Wood MD [address] [facility] Professional building [address] [place] [phone] Referring Physician Rheumatology 08/21/23 documented as of this encounter
--- OUTSIDE RECORDS SUMMARY | 2025-02-04 12:24 | XMS_ITS | Encounter Summary ---
Author Organization [facility] Address [address] [place] [address] Care Team Providers Care Reprint Sorter Name Role Phone Jayme Parham MD Primary Care Provider [phone] Jayme Parham MD Unavailable [phone] Mick Farmer DO Unavailable [phone] Renato Santacruz MD Unavailable [phone] Chuy Wood MD Unavailable [phone] Encounter Details Date Type Department Care Team (Late st Contact Info) Description 09/18/2023 Orders Only [facility] [address] [place] [address] Jayme Parham MD 112 [facility] 100 [place] [address] Social History Tobacco Use Types [...] often do you attend chur ch or presybeterian services? Never 12/11/2022 Active Member of Clubs [...] Recorded Patient Health Questionnaire-2 Score 0 02/06/2023 [facility] of Occupat ional Health - Occupational Stress [...] in a custodial (including now)? No 12/11/2022 Education Answer Date [...] FM [address] [place] [address] Jayme Parham MD [address] [place] [address] documented as of this encounter Visit Diagnoses Not on filedocumented in this encounter Additional Health Concerns Assessment Noted Time PHQ-9 Depression Total Score: 7 05/22/20 23 2:00 PM EST documented as of this encounter Care Teams Reprint Sorter Relationship Specialty Start Date End Date Jayme Parham MD [address] [place] [address] PCP - General Family Medicine 11/25/22 Jayme Parham MD [address] [facility] [address] [place] [address] PCP - ACO Reach 12/05/22 Mick Farmer DO [address] [place] [address] Referring Physician Ophthalmology 08/21/23 Renato Santacruz MD [address] [place] [address] Referring Physician Urology 08/21/23 Chuy Wood MD [address] [facility] Professional building [address] [place] [phone] Referring Physician Rheumatology 08/21/23 documented as of this encounter
--- OUTSIDE RECORDS SUMMARY | 2025-02-04 12:24 | XMS_ITS | Encounter Summary ---
Author Organization [facility] Address [address] [place] [address] Care Team Providers Care Hydraulic Jack Operator Name Role Phone Jayme Parham MD Primary Care Provider [phone] Jayme Parham MD Unavailable [phone] Mick Farmer DO Unavailable [phone] Renato Santacruz MD Unavailable [phone] Chuy Wood MD Unavailable [phone] Encounter Details Date Type Department Care Team (Late st Contact Info) Description 08/14/2023 Orders Only [facility] [address] [place] [address] Magalis Harris [place] Social History Tobacco Use Types Packs/Day Years [...] Recorded Patient Health Questionnaire-2 Score 0 02/06/2023 [facility] Questionnaire Answer Date [...] FM [address] [place] [address] Jayme Parham MD 112 [facility] 100 [place] [address] (Fax) documented as of this encounter Visit Diagnoses Not on filedocumented in this encounter Additional Health Concerns Assessment Noted Time PHQ-9 Depression Total Score: 7 05/22/20 23 2:00 PM EST documented as of this encounter Care Teams Hydraulic Jack Operator Relationship Specialty Start Date End Date Jayme Parham MD [address] [facility] 100 [place] [address] (Fax) PCP - General Family Medicine 11/25/22 Jayme Parham MD 112 [facility] [address] [place] [address] PCP - ACO Reach 12/05/22 Mick Farmer DO [address] [facility] [address] [place] [address] Referring Physician Ophthalmology 08/21/23 Renato Santacruz MD [address] [place] [address] Referring Physician Urology 08/21/23 Chuy Wood MD [address] [facility] Professional building [address] [place] [phone] Referring Physician Rheumatology 08/21/23 documented as of this encounter
--- OUTSIDE RECORDS SUMMARY | 2025-02-04 12:24 | XMS_ITS | Encounter Summary ---
Author Organization [facility] Address [address] [place] [address] Care Team Providers Care Casino Floorperson Name Role Phone Jayme Parham MD Primary Care Provider [phone] Jayme Parham MD Unavailable [phone] Mick Farmer DO Unavailable [phone] Renato Santacruz MD Unavailable [phone] Chuy Wood MD Unavailable [phone] Encounter Details Date Type Department Care Team (Late st Contact Info) Description 09/03/2023 Orders Only [facility] [address] [place] [address] Jayme Parham MD 112 [facility] 100 [place] [address] Social History Tobacco Use Types [...] FM [address] [place] [address] Jayme Parham MD [address] [place] [address] documented as of this encounter Visit Diagnoses Not on filedocumented in this encounter Additional Health Concerns Assessment Noted Time PHQ-9 Depression Total Score: 7 05/22/20 23 2:00 PM EST documented as of this encounter Care Teams Casino Floorperson Relationship Specialty Start Date End Date Jayme Parham MD [address] [place] [address] PCP - General Family Medicine 11/25/22 Jayme Parham MD [address] [facility] [address] [place] [address] PCP - ACO Reach 12/05/22 Mick Farmer DO [address] [place] [address] Referring Physician Ophthalmology 08/21/23 Renato Santacruz MD [address] [place] [address] Referring Physician Urology 08/21/23 Chuy Wood MD [address] [facility] Professional building [address] [place] [phone] Referring Physician Rheumatology 08/21/23 documented as of this encounter
--- OUTSIDE RECORDS SUMMARY | 2025-02-04 12:24 | XMS_ITS | Encounter Summary ---
Author Organization [facility] Address [address] [place] [address] Care Team Providers Care Legal Assistant Name Role Phone Jayme Parham MD Primary Care Provider [phone] Jayme Parham MD Unavailable [phone] Mick Farmer DO Unavailable [phone] Renato Santacruz MD Unavailable [phone] Chuy Wood MD Unavailable [phone] Encounter Details Date Type Department Care Team (Late st Contact Info) Description 08/14/2023 Abstract [facility] [address] [place] [address] Renato Santacruz MD [address] [place] [address] Social History Tobacco Use Types Packs/Day Years [...] CI [address] [place] [address] Jayme Parham MD [address] [place] [address] documented as of this encounter Visit Diagnoses Not on filedocumented in this encounter Additional Health Concerns Assessment Noted Time PHQ-9 Depression Total Score: 7 05/22/20 23 2:00 PM EST documented as of this encounter Care Teams Legal Assistant Relationship Specialty Start Date End Date Jayme Parham MD [address] [place] [address] PCP - General Family Medicine 11/25/22 Jayme Parham MD [address] [place] [address] PCP - ACO Reach 12/05/22 Mick Farmer DO [address] [place] [address] Referring Physician Ophthalmology 08/21/23 Renato Santacruz MD [address] [place] [address] Referring Physician Urology 08/21/23 Chuy Wodo MD [address] [facility] Professional building 1 [place] [address] Referring Physician Rheumatology 08/21/23 documented as of this encounter
--- OUTSIDE RECORDS SUMMARY | 2025-02-04 12:24 | XMS_ITS | Encounter Summary ---
Author Organization [facility] Address [address] [place] [address] Care Team Providers Care Collator Hand Name Role Phone Jayme Parham MD Primary Care Provider [phone] Jayme Parham MD Unavailable [phone] Mick Farmer DO Unavailable [phone] Renato Santacruz MD Unavailable [phone] Chuy Wood MD Unavailable [phone] Encounter Details Date Type Department Care Team (Late st Contact Info) Description 08/13/2023 Abstract [facility] [address] [place] [address] Jr Jarrell MD [address] [facility] Social History Tobacco Use Types Packs/Day Years [...] often do you attend chur ch or quaker services? Never 12/11/2022 Active Member of Clubs [...] Recorded Patient Health Questionnaire-2 Score 0 02/06/2023 [facility] of Occupat ional Health - Occupational [...] FM [address] [place] [address] Jayme Parham MD [address] [place] [address] documented as of this encounter Visit Diagnoses Not on filedocumented in this encounter Additional Health Concerns Assessment Noted Time PHQ-9 Depression Total Score: 7 05/22/20 23 2:00 PM EST documented as of this encounter Care Teams Collator Hand Relationship Specialty Start Date End Date Jayme Parham MD [address] [place] [address] PCP - General Family Medicine 11/25/22 Jayme Parham MD [address] [facility] 100 [place] [address] PCP - ACO Reach 12/05/22 Mick Farmer DO [address] [place], [place] [phone] Referring Physician Ophthalmology 08/21/23 Renato Santacruz MD [address] [place] [address] Referring Physician Urology 08/21/23 Chuy Wood MD [address] [facility] Professional building 1 [place] [phone] Referring Physician Rheumatology 08/21/23 documented as of this encounter
--- OUTSIDE RECORDS SUMMARY | 2025-02-04 12:25 | XMS_ITS | Encounter Summary ---
Author Organization [facility] Address [address] [place] [address] Care Team Providers Care Qa Software Tester Name Role Phone Jayme Parham MD Primary Care Provider [phone] Jayme Parham MD Unavailable [phone] Mick Farmer DO Unavailable [phone] Renato Santacruz MD Unavailable [phone] Chuy Wood MD Unavailable [phone] Encounter Details Date Type Department Care Team (Late st Contact Info) Description 02/11/2023 Orders Only [facility] [address] [place] [address] Jayme Parham MD 112 [facility] 100 [place] [address] Social History Tobacco Use Types [...] often do you attend chur ch or restoration services? Never 12/11/2022 Active Member of Clubs [...] [facility] 100 [address] [facility] [address] [place] [address] Jayme Parham MD 112 [facility] [address] [place] [address] documented as of this encounter Procedures Procedure Name Priority Date/Time Associated Diagnosis Comments XR IVP Routine 02/11/2023 2:09 PM EDT documented in this encounter Results * XR IVP (02/11/2023 2:09 PM EDT) Anatomical Region Laterality Modality Radiographic Yin ging Jayme Parham MD IMG XR PROCEDURES Final Resu lt documented in this encounter Visit Diagnoses Not on filedocumented in this encounter Care Teams Qa Software Tester Relationship Specialty Start Date End Date Jayme Parham MD 112 [facility] [address] [place] [address] PCP - General Family Medicine 11/25/22 Jayme Parham MD 112 [facility] 100 [place] [address] PCP - ACO Reach 12/05/22 Mick Farmer DO [address] [place] [address] Referring Physician Ophthalmology 08/21/23 Renato Santacruz MD [address] [place] [address] Referring Physician Urology 08/21/23 Chuy Wood MD [address] [facility] Professional building [address] [place] [phone] Referring Physician Rheumatology 08/21/23 documented as of this encounter
--- OUTSIDE RECORDS SUMMARY | 2025-02-04 12:25 | XMS_ITS | Encounter Summary ---
Author Organization [facility] Address [address] [place] [address] Care Team Providers Care Clinical Rehabilitation Coordinator Name Role Phone Jayme Parham MD Primary Care Provider [phone] Jayme Parham MD Unavailable [phone] Mick Farmer DO Unavailable [phone] Renato Santacruz MD Unavailable [phone] Chyu Wood MD Unavailable [phone] Encounter Details Date Type Department Care Team (Late st Contact Info) Description 01/27/2023 Orders Only [facility] [address] [place] [address] Jayme Parham MD 112 [facility] 100 [place] [address] Social History Tobacco Use Types [...] Recorded Patient Health Questionnaire-2 Score 0 12/12/2022 [facility] of Occupat ional Health - [...] a nursing home (including now)? No 12/11/2022 Education Answer [...] FM [address] [place] [address] Jayme Parham MD 112 [facility] [address] [place] [address] documented as of this encounter Procedures Procedure Name Priority Date/Time Associated Diagnosis Comments PROTHROMBIN TIME-INR Routine 01/24/2023 3:18 PM EDT documented in this encounter Results * Protime-INR (01/24/2023 3:18 PM EDT) Blood Venous blood specimen / Unknown Jayme Parham MD LAB BLOOD ORDERABLES Final R esult documented in this encounter Visit Diagnoses Not on filedocumented in this encounter Care Teams Clinical Rehabilitation Coordinator Relationship Specialty Start Date End Date Jayme Parham MD [address] [place] [address] PCP - General Family Medicine 11/25/22 Jayme Parahm MD [address] [address] PCP - ACO Reach 12/05/22 Mick Farmer DO [address] [place] [address] Referring Physician Ophthalmology 08/21/23 Renato Santacruz MD [address] [place] [address] Referring Physician Urology 08/21/23 Chuy Wood MD [address] [facility] Professional building [address] [place] [phone] Referring Physician Rheumatology 08/21/23 documented as of this encounter
--- OUTSIDE RECORDS SUMMARY | 2025-02-04 12:25 | XMS_ITS | Encounter Summary ---
Author Organization [facility] Address [address] [place] [address] Care Team Providers Care Cash Clerk Name Role Phone Jayme Parham MD Primary Care Provider [phone] Jayme Parham MD Unavailable [phone] Mick Farmer DO Unavailable [phone] Renato Santacruz MD Unavailable [phone] Chuy Wood MD Unavailable [phone] Encounter Details Date Type Department Care Team (Late st Contact Info) Description 01/31/2025 Clinisync Result Encounter [facility] External Department Unsolicited [...] attend chur ch or taoism services? Never 04/08/2024 Do you belong to any clubs o r organizations such as pentecostal groups, unions, fraternal or athletic groups, or [...] Recorded Patient Health Questionnaire-2 Score 0 11/04/2024 [facility] of Occupat ional Health [...] 02/08/2025 10:30 AM EDT Office Visit [facility] [address] [facility] 100 [place] [address] Jayme Parham MD [address] [place] [address] (Fax) Pending Results Name Type Priority Associated Diagnoses Date /Time BLOOD CULTURE 1 Lab Routine 5 9:50 AM EDT BLOOD CULTURE 2 Lab Routine 5 9:56 AM EDT documented as of this encounter Procedures Procedure Name Priority Date/Time Associated Diagnosis Comments BLOOD CULTURE 2 Routine 01/31/2025 9:56 AM EDT BLOOD CULTURE 1 Routine 01/31/2025 9:50 AM EDT documented in this encounter Visit Diagnoses Not on filedocumented in this encounter Additional Health Concerns Assessment Noted Time PHQ-9 Depression Total Score: 7 11/05/19 25 1:00 PM EDT documented as of this encounter Care Teams Cash Clerk Relationship Specialty Start Date End Date Jayme Parham MD [address] [place] [address] (Fax) PCP - General Family Medicine 11/25/22 Jayme Parham MD [address] [place] [address] (Fax) PCP - ACO Reach 12/05/22 Mick Farmer DO [address] [place] [address] Referring Physician Ophthalmology 08/21/23 Renato Santacruz MD [address] [place] [address] Referring Physician Urology 08/21/23 Chuy Wood MD [address] [facility] Professional building [address] [place] [phone] Referring Physician Rheumatology 08/21/23 documented as of this encounter
--- OUTSIDE RECORDS SUMMARY | 2025-02-04 12:25 | XMS_ITS | Encounter Summary ---
Author Organization [facility] Address [address] [place] [address] Care Team Providers Care Customer Marketing Manager Name Role Phone Jayme Perez MD Primary Care Provider [phone] Jayme Perez MD Unavailable [phone] Mick Farmer DO Unavailable [phone] Renato Santacruz MD Unavailable [phone] Chuy Wood MD Unavailable [phone] Encounter Details Date Type Department Care Team (Late st Contact Info) Description 05/15/2024 Clinisync Result Encounter NOMS External Department Unsolicited Jayme Perez MD 112 [facility] 100 [place] [address] Social History Tobacco Use Types [...] How often do you attend chur or zoroastrian services? Never 04/08/2024 Do you belong to any clubs o r organizations such as jainism groups, unions, fraternal or athletic groups, or [...] Recorded Patient Health Questionnaire-2 Score 0 02/06/2023 [facility] [place] of Occupat ional Health - Occupational Stress [...] time in the past 12 m [facility], were you homeless or living in a [...] Office Visit [facility] 100 112 [facility] 100 [place] [address] Jayme Perez MD 112 [facility] 100 [place] [address] documented as of this encounter Procedures Procedure Name Priority Date/Time Associated Diagnosis Comments CT CHEST W CONTRAST 05/15/2024 7 :23 AM EDT documented in this encounter Results * CT CHEST W CONTRAST (05/15/2024 7:23 AM EDT) Anatomical Region Laterality Modality Other 05/15/2024 7:23 AM EDT Narrative 05/15/2024 7:26 AM EDT [address] [address] [address] Scan Report Signed Patient: WILDA SEN MR#: [id number] : 1945 Acct:[id number] Age/Sex: 79 / F ADM Date: 05/14/24 Loc: CT Attending Dr: JAYME PEREZ Ordering Physician: JAYME PEREZ Date of Service: 05/14/24 Procedure(s): CT chest w con Accession Number(s): [id number] cc: JYAME PEREZ [address] [address] Patient Name: WILDA SEN MRN: [id number] date: 1945 Sex: F Assigned Patient Location: CT Current Patient Location: Accession/Order Number: [id number] Exam Date: 05/14/2024 09:00 Report Date: 05/15/2024 [...] M.D. Signed By: 05/15/24725 DD/ 2 TD/TT: Welding Teacher: Procedure Note Radiology, Radiologist, MD - 05/15/2024 [place] [address] CT Scan Report Signed Patient: WILDA SEN JMR#: [id number] : 1945cct:[id number] Age/Sex: 79 / FADM Date: 05/14/24 Loc: CT Attending Dr: JAYME PEREZ Ordering Physician: JAYME PEREZ Date of Service: 05/14/24 Procedure(s): CT chest w con Accession Number(s): [id number] cc: JAYME PEREZ The [place] [id number] Patient Name: WILDA SEN MRN: [id number] date: 1945 Sex: F Assigned Patient Location: CT Current Patient Location: Accession/Order Number: [id number] Exam Date: 05/14/2024 09:00 Report Date: 05/15/2024 [...] Garay M.D. Signed By:05/15/24725 DD/ 2 TD/TT: Welding Teacher: Jayme Perez MD [facility] Final Resu lt documented in this encounter Visit Diagnoses Not on filedocumented in this encounter Additional Health Concerns Assessment Noted Time PHQ-9 Depression Total Score: 7 05/22/20 23 2:00 PM EST documented as of this encounter Care Teams Customer Marketing Manager Relationship Specialty Start Date End Date Jayme Perez MD [address] [address] PCP - General Family Medicine 11/25/22 Jayme Perez MD [address] [facility] [address] [place] [address] PCP - ACO Reach 12/05/22 Mick Farmer DO [address] [facility] [address] [place] [address] Referring Physician Ophthalmology 08/21/23 Renato Santacruz MD 290 [place] [address] Referring Physician Urology 08/21/23 Chuy Wood MD [address] [facility] Professional building [address] [place] [phone] Referring Physician Rheumatology 08/21/23 documented as of this encounter
--- OUTSIDE RECORDS SUMMARY | 2025-02-04 12:25 | XMS_ITS | Encounter Summary ---
Author Organization [facility] Address [address] [place] [address] Care Team Providers Care Charge Aide Name Role Phone Jayme Parham MD Primary Care Provider [phone] Jayme Parham MD Unavailable [phone] Mick Farmer DO Unavailable [phone] Renato Santacruz MD Unavailable [phone] Chuy Wood MD Unavailable [phone] Encounter Details Date Type Department Care Team (Late st Contact Info) Description 12/23/2022 Orders Only [facility] [address] [place] [address] Jayme Parham MD 112 [facility] 100 [place] [address] Social History Tobacco Use Types [...] Recorded Patient Health Questionnaire-2 Score 0 12/12/2022 [facility] of Occupat ional [...] in a detention (including now)? No 12/11/2022 Comments No Sex [...] FM [address] [place] [address] Jayme Parham MD 112 [place] [facility] [address] [place] [address] documented as of this encounter Procedures Procedure Name Priority Date/Time Associated Diagnosis Comments PROTHROMBIN TIME-INR Routine 12/16/2022 12:55 PM EDT documented in this encounter Results * Protime-INR (12/16/2022 12:55 PM EDT) Blood Venous blood specimen / Unknown Jayme Parham MD LAB BLOOD ORDERABLES Final R esult documented in this encounter Visit Diagnoses Not on filedocumented in this encounter Care Teams Charge Aide Relationship Specialty Start Date End Date Jayme Parham MD [address] [place] [address] PCP - General Family Medicine 11/25/22 Jayme Parham MD 112 [facility] [address] [place] [address] PCP - ACO Reach 12/05/22 Mick Farmer DO [address] [place] [address] Referring Physician Ophthalmology 08/21/23 Renato Santacruz MD 290 [place] [address] Referring Physician Urology 08/21/23 Chuy Wood MD [address] [facility] Professional building 1 [place] [phone] Referring Physician Rheumatology 08/21/23 documented as of this encounter
--- OUTSIDE RECORDS SUMMARY | 2025-02-04 12:25 | XMS_ITS | Encounter Summary ---
Author Organization [facility] Address [address] [place] [address] Care Team Providers Care Plumber Assistant Name Role Phone Jayme Parham MD Primary Care Provider [phone] Jayme Parham MD Unavailable [phone] Mick Farmer DO Unavailable [phone] Renato Santacruz MD Unavailable [phone] Chuy Wood MD Unavailable [phone] Encounter Details Date Type Department Care Team (Late st Contact Info) Description 07/28/2023 Orders Only [facility] [address] [place] [phone] Kimberly, [place], [place] Social History Tobacco Use Types Packs/Day Years [...] often do you attend chur ch or scientologist services? Never 12/11/2022 Active Member of Clubs [...] Score 0 02/06/2023 [facility] [place] [facility] Questionnaire Answer Date [...] Office Visit [facility] 100 112 [facility] [address] [place] [address] Jayme Parham MD 112 [facility] 100 [place] [address] documented as of this encounter Visit Diagnoses Not on filedocumented in this encounter Additional Health Concerns Assessment Noted Time PHQ-9 Depression Total Score: 7 05/22/20 23 2:00 PM EST documented as of this encounter Care Teams Plumber Assistant Relationship Specialty Start Date End Date Jayme Parham MD 112 [facility] 100 [place] [address] (Fax) PCP - General Family Medicine 5/15/23 Jayme Parham MD 112 [facility] [address] [place] [address] PCP - ACO Reach 12/05/22 Mick Farmer DO [address] [place] [address] Referring Physician Ophthalmology 08/21/23 Renato Santacruz MD [address] [place] [address] Referring Physician Urology 08/21/23 Chuy Wood MD [address] [facility] Professional building [address] [place] [phone] Referring Physician Rheumatology 08/21/23 documented as of this encounter
--- OUTSIDE RECORDS SUMMARY | 2025-02-04 12:25 | XMS_ITS | Encounter Summary ---
Author Organization [facility] Address [address] [place] [address] Care Team Providers Care Social Security Specialist Name Role Phone Jayme Perez MD Primary Care Provider [phone] Jayme Perez MD Unavailable [phone] Mick Farmer DO Unavailable [phone] Renato Santacruz MD Unavailable [phone] Chuy Wood MD Unavailable [phone] Encounter Details Date Type Department Care Team [...] often do you attend chur ch or restorationism services? Never 12/11/2022 Active Member of Clubs [...] Patient Health Questionnaire-2 Score 0 02/06/2023 [facility] - Occupational Stress Questionnaire Answer Date [...] 02/08/2025 10:30 AM EDT Office Visit [facility] 100 112 [facility] [address] [place] [address] Jayme Perez MD 112 [facility] 100 [place] [address] documented as of this encounter Procedures Procedure Name Priority Date/Time Associated Diagnosis Comments XR ABDOMEN 1V 10/09/2023 6:22 AM EDT documented in this encounter Results * XR ABDOMEN 1V (10/09/2023 6:22 AM EDT) Anatomical Region Laterality Modality Other 10/09/2023 6:22 AM EDT Narrative 10/09/2023 6:25 AM EDT The [address] [address] XRay Report Signed Patient: WILDA SEN MR#: [id number] : 1945 Acct:[id number] Age/Sex: 78 / F ADM Date: 10/08/23 Loc: [facility] Attending Dr: Williams Jackson M.D. Ordering Physician: Williams Jackson M.D. Date of Service: 10/08/23 Procedure(s): XR abdomen 1V Accession Number(s): [id number] cc: Williams Jackson M.D.; JAYME PEREZ The [place] [id number] Patient Name: WILDA SEN MRN: [id number] date: 1945 Sex: F Assigned Patient Location: [facility] Current Patient Location: Accession/Order Number: [id number] Exam Date: 10/08/2023 10:37 Report Date: 10/09/2023 [...] M.D. Signed By: 10/09/23624 DD/ 1 TD/TT: Assembler Skylights: Procedure Note Radiology, Radiologist, - 10/09/2023 The [place] [id number] XRay Report Signed Patient: WILDA SEN JMR#: [id number] : 1945cct:[id number] Age/Sex: 78 / FADM Date: 10/08/23 Loc: RAD Attending Dr: Williams Jackson M.D. Ordering Physician: Williams Jackson M.D. Date of Service: 10/08/23 Procedure(s): XR abdomen 1V Accession Number(s): [id number] cc: Williams Jackson M.D.; JAYME PEREZ [place] [id number] Patient Name: WILDA SEN MRN: [id number] date: 1945 Sex: F Assigned Patient Location: [facility] Current Patient Location: Accession/Order Number: [id number] Exam Date: 10/08/2023 10:37 Report Date: 10/09/2023 [...] Garay M.D. Signed By:10/09/2325 DD/ 1 TD/TT: Assembler Skylights: us Generic External Data Provider [facility] Final Result documented in this encounter Visit Diagnoses Not on filedocumented in this encounter Additional Health Concerns Assessment Noted Time PHQ-9 Depression Total Score: 7 05/22/20 23 2:00 PM EST documented as of this encounter Care Teams Social Security Specialist Relationship Specialty Start Date End Date Jayme Perez MD [address] [place] [address] PCP - General Family Medicine 11/25/22 Jayme Perez MD [address] [place] [address] PCP - ACO Reach 12/05/22 Mick Farmer DO [address] [place] [address] Referring Physician Ophthalmology 08/21/23 Renato Santacruz MD [address] [place] [address] Referring Physician Urology 08/21/23 Chuy Wood MD [address] [facility] Professional building 1 [place] [address] Referring Physician Rheumatology 08/21/23 documented as of this encounter
--- OUTSIDE RECORDS SUMMARY | 2025-02-04 12:25 | XMS_ITS | Clinical Summary ---
Author Organization [facility] Address [address] [place] [address] Phone Care Team Providers Care Negotiator Name Role Phone Jayme Parham MD Primary Care Provider [phone] Social History Tobacco Use Types Packs/Day Years Used Date Smoking Tobacco: Never Assessed Comments Unknown Sex and Gender Information Value Date Recorded Sex Assigned at Not on file Legal Sex Female 1:42 PM EST Gender Identity Not on file Sexual Orientation Not on file Plan of Treatment Not on file Care Teams Negotiator Relationship Specialty Start Date End Date Jayme Parham MD [address] [place] [phone] PCP - General 11/21/14
--- OUTSIDE RECORDS SUMMARY | 2025-02-04 12:25 | XMS_ITS | Encounter Summary ---
Author Organization [facility] Address [address] [place] [address] Care Team Providers Care Web Development Intern Name Role Phone Jayme Parham MD Primary Care Provider [phone] Jayme Parham MD Unavailable [phone] Mick Farmer DO Unavailable [phone] Renato Santacruz MD Unavailable [phone] Chuy Wood MD Unavailable [phone] Encounter Details Date Type Department Care Team (Late st Contact Info) Description 07/28/2023 Abstract [facility] [address] [place] [phone] Lou Glover, SOCIAL WORK ADMINISTRATOR [address] [facility] [place] [phone] Social History Tobacco Use Types Packs/Day Years [...] FM [address] [place] [address] Jayme Parham MD [address] [facility] [address] [place] [address] (Fax) documented as of this encounter Visit Diagnoses Not on filedocumented in this encounter Additional Health Concerns Assessment Noted Time PHQ-9 Depression Total Score: 7 05/22/20 23 2:00 PM EST documented as of this encounter Care Teams Web Development Intern Relationship Specialty Start Date End Date Jayme Parham MD [address] [place] [address] PCP - General Family Medicine 11/25/22 Jayme Parham MD 112 [facility] [address] [place] [address] PCP - ACO Reach 12/05/22 Mick Farmer DO [address] [place] [address] Referring Physician Ophthalmology 08/21/23 Renato Santacruz MD [address] [place] [id number] Referring Physician Urology 08/21/23 Chuy Wood MD [address] [facility] Professional building 1 [place] [address] Referring Physician Rheumatology 08/21/23 documented as of this encounter
--- OUTSIDE RECORDS SUMMARY | 2025-02-04 12:25 | XMS_ITS | Encounter Summary ---
Author Organization [facility] Address [address] [place] [address] Care Team Providers Care Laborer Wood Preserving Plant Name Role Phone Jayme Parham MD Primary Care Provider [phone] Jayme Parham MD Unavailable [phone] Mick Farmer DO Unavailable [phone] Renato Santacruz MD Unavailable [phone] Chuy Wood MD Unavailable [phone] Encounter Details Date Type Department Care Team (Late st Contact Info) Description 01/13/2025 Orders Only [facility] [address] [place] [address] Magalis Harris, [place] Vertigo; 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 [...] often do you attend chur ch or confucianist services? Never 04/08/2024 Do you belong to any clubs o r organizations such as hinduism groups, unions, fraternal or athletic groups, or [...] Recorded Patient Health Questionnaire-2 Score 0 11/04/2024 [facility] of Occupat ional Health - Occupational Stress [...] in a detention (including now)? No 12/11/2022 Housing Stability Vital Sign Answer Stefan e Recorded In the last 12 months, was t here a time when you were not able to pay the mortgage or rent on time? No 04/08/2024 In the past 12 months, how m any times have you moved where you were living? 0 04/08/2024 At any time in the past 12 m [facility], were you homeless or living in a detention (including now)? No 04/08/2024 Education Answer Date [...] FM [address] [place] [address] Jayme Parham MD 112 [place] [facility] [address] [place] [address] documented as of this encounter Visit Diagnoses Diagnosis Vertigo Dizziness and giddiness 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 (HCC) Atrial fibrillation Unsteady gait Abnormality of gait documented in this encounter Additional Health Concerns Assessment Noted Time PHQ-9 Depression Total Score: 7 11/05/19 25 1:00 PM EDT documented as of this encounter Care Teams Laborer Wood Preserving Plant Relationship Specialty Start Date End Date Jayme Parham MD 112 [place] [facility] 100 [place] [address] (Fax) PCP - General Family Medicine 11/25/22 Jayme Parham MD 112 [place] [facility] 100 [place] [address] (Fax) PCP - ACO Reach 12/05/22 Mick Farmer DO [address] [facility] [address] [place] [address] Referring Physician Ophthalmology 08/21/23 Renato Santacruz MD 290 [place] [address] Referring Physician Urology 08/21/23 Chuy Wood MD [address] [facility] Professional building 1 [place] [address] Referring Physician Rheumatology 08/21/23 documented as of this encounter
--- OUTSIDE RECORDS SUMMARY | 2025-02-04 12:25 | XMS_ITS | Encounter Summary ---
Author Organization [facility] Address [address] [place] [address] Care Team Providers Care Charging Board Operator Name Role Phone Jayme Parham MD Primary Care Provider [phone] Jayme Parham MD Unavailable [phone] Mick Farmer DO Unavailable [phone] Renato Santacruz MD Unavailable [phone] Chuy Wood MD Unavailable [phone] Encounter Details Date Type Department Care Team (Late st Contact Info) Description 01/21/2024 Orders Only [facility] [address] [place] [address] Chuy Wood MD [address] [facility] Professional building 1 [place] [phone] Social History Tobacco Use Types Packs/Day Years [...] often do you attend chur ch or cheondoism services? Never 12/11/2022 Active Member of Clubs [...] Recorded Patient Health Questionnaire-2 Score 0 02/06/2023 [facility] of Occupat ional Health - [...] in a halfway (including now)? No 12/11/2022 Education Answer Date [...] CI [address] [place] [address] Jayme Parham MD 112 [facility] [address] [place] [address] documented as of this encounter Procedures Procedure [...] documented as of this encounter Care Teams Charging Board Operator Relationship Specialty Start Date End Date Jayme Parham MD 112 [facility] [address] [place] [address] PCP - General Family Medicine 11/25/22 Jayme Parham MD 112 [facility] 100 [place] [address] PCP - ACO Reach 12/05/22 Mick Farmer DO [address] [place] [address] [place] [address] Referring Physician Ophthalmology 08/21/23 Renato Santacruz MD [address] [place] [address] Referring Physician Urology 08/21/23 Chuy Wood MD [address] [facility] Professional building [address] [place] [phone] Referring Physician Rheumatology 08/21/23 documented as of this encounter
--- OUTSIDE RECORDS SUMMARY | 2025-02-04 12:25 | XMS_ITS | Encounter Summary ---
Author Organization [facility] Address [address] [place] [address] Care Team Providers Care Environmental Air Specialist Name Role Phone Jayme Parham MD Primary Care Provider + [phone] Jayme Parham MD Unavailable [phone] Mick Farmer DO Unavailable [phone] Renato Santacruz MD Unavailable [phone] Chuy Wood MD Unavailable [phone] Reason for Referral * Consultation (Routine) - Pending Review Specialty Diagnoses / Procedures Referred By Contac t Referred To Contact Neurology Diagnoses Brain atrophy White matter disease Vertigo Procedures CA OFFICE/OUTPATIENT NEW HIGH MDM 60 MINUTES Jayme Parham MD 112 [facility] [address] [place] [address] Phone: tel: fax: Lan Truong MD [address] [facility] [address] [place] [address] Phone: tel: fax: Referral ID Status Reason Start Date Expiration Date Visits Requested Visits Authorized [id number] Pending Review Specialty Services Required 01/25/2025 07/24/2025 1 1 Encounter Details Date Type Department Care Team (Late st Contact Info) Description 01/25/2025 Telephone [facility] [address] [place] [address] Jayme Parham MD 112 [facility] 100 [place] [address] Social History Tobacco Use Types Packs/Day Years [...] How often do you attend chur or mosque services? Never 04/08/2024 Do you belong to any clubs o r organizations such as religious groups, unions, fraternal or athletic groups, or [...] Questionnaire-2 Score 0 11/04/2024 [facility] of Occupat ional Health - [...] any time in the past 12 m [facility], were you homeless or living in [...] 02/08/2025 10:30 AM EDT Office Visit [facility] 100 112 [facility] [address] [place] [address] Jayme Parham MD [address] [address] (Fax) Scheduled Referrals Name Type Priority Associated [...] documented as of this encounter Care Teams Environmental Air Specialist Relationship Specialty Start Date End Date Jayme Parham MD [address] [address] PCP - General Family Medicine 11/25/22 Jayme Parham MD [address] [address] (Fax) PCP - ACO Reach 12/05/22 Mick Farmer DO 278 [facility] [address] [place] [address] Referring Physician Ophthalmology 08/21/23 Renato Santacruz MD 290 [place] [address] Referring Physician Urology 08/21/23 Chuy Wood MD [address] [facility] Professional building 1 [place] [phone] Referring Physician Rheumatology 08/21/23 documented as of this encounter
--- OUTSIDE RECORDS SUMMARY | 2025-02-04 12:25 | XMS_ITS | Encounter Summary ---
Author Organization [facility] Address [address] [place] [address] Care Team Providers Care Die Engraving Supervisor Name Role Phone Jayme Parham MD Primary Care Provider [phone] Jayme Parham MD Unavailable [phone] Mick Farmer DO Unavailable [phone] Renato Santacruz MD Unavailable [phone] Chuy Wood MD Unavailable [phone] Encounter Details Date Type Department Care Team (Late st Contact Info) Description 11/17/2023 Orders Only [facility] [address] [place] [address] Jayme Parham MD 112 [facility] 100 [place] [address] Social History Tobacco Use Types [...] FM [address] [place] [address] Jayme Parham MD [address] [place] [address] documented as of this encounter Visit Diagnoses Not on filedocumented in this encounter Additional Health Concerns Assessment Noted Time PHQ-9 Depression Total Score: 7 05/22/20 23 2:00 PM EST documented as of this encounter Care Teams Die Engraving Supervisor Relationship Specialty Start Date End Date Jayme Parham MD [address] [place] [address] PCP - General Family Medicine 11/25/22 Jayme Parham MD [address] [facility] [address] [place] [address] PCP - ACO Reach 12/05/22 Mick Farmer DO [address] [place] [address] Referring Physician Ophthalmology 08/21/23 Renato Santacruz MD [address] [place] [address] Referring Physician Urology 08/21/23 Chuy Wood MD [address] [facility] Professional building [address] [place] [phone] Referring Physician Rheumatology 08/21/23 documented as of this encounter
--- OUTSIDE RECORDS SUMMARY | 2025-02-04 12:25 | XMS_ITS | Clinical Summary ---
Author Organization [facility] Address [address] [place] [address] Care Team Providers Care Elevator Constructor Electric Name Role Phone Unavailable Primary Care Provider [...]
--- OUTSIDE RECORDS SUMMARY | 2025-02-04 12:25 | XMS_ITS | Encounter Summary ---
Author Organization [facility] Address [address] [place] [address] Care Team Providers Care Emergency Management Program Specialist Name Role Phone Jayme Perez MD Primary Care Provider [phone] Jayme Perez MD Unavailable [phone] Mick Farmer DO Unavailable [phone] Renato Santacruz MD Unavailable [phone] Chuy Wood MD Unavailable [phone] Encounter Details Date Type Department Care Team [...] Patient Health Questionnaire-2 Score 0 02/06/2023 [facility] - [...] any time in the past 12 m [facility], were you homeless or living in a [...] 02/08/2025 10:30 AM EDT Office Visit [facility] [address] [facility] 100 [place] [address] Jayme Perez MD [address] [place] [address] documented as of this encounter Procedures Procedure Name Priority Date/Time Associated Diagnosis Comments XR ABDOMEN 1V 07/05/2024 11:19 PM EST documented in this encounter Results * XR ABDOMEN 1V (07/05/2024 11:19 PM EST) Anatomical Region Laterality Modality Other 07/05/2024 11:1 9 PM EST Narrative 07/05/2024 11:22 PM EST [address] [address] XRay Report Signed Patient: WILDA SEN MR#: [id number] : 1945 Acct:[id number] Age/Sex: 79 / F ADM Date: 07/05/24 Loc: RAD Attending Dr: Williams Jackson M.D. Ordering Physician: Williams Jackson M.D. Date of Service: 07/05/24 Procedure(s): XR abdomen 1V Accession Number(s): [id number] cc: Williams Jackson M.D.; JAYME PEREZ [address] [address] Patient Name: WILDA SEN MRN: [id number] date: 1945 Sex: F Assigned Patient Location: [facility] Current Patient Location: RAD Accession/Order Number: [id number] Exam Date: 07/05/2024 09:18 Report Date: 07/05/2024 [...] M.D. Signed By: 07/05/242321 DD/ 18 TD/TT: Slot Shift Manager: Procedure Note Radiology, Radiologist, MD - 07/05/2024 [place] [address] XRay Report Signed Patient: WILDA SEN R#: [id number] : 1945cct:[id number] Age/Sex: 79 / FADM Date: 07/05/24 Loc: RAD Attending Dr: Williams Jackson M.D. Ordering Physician: Williams Jackson M.D. Date of Service: 07/05/24 Procedure(s): XR abdomen 1V Accession Number(s): [id number] cc: Williams Jackson M.D.; JAYME PEREZ [place] [address] Patient Name: WILDA SEN MRN: [id number] date: 1945 Sex: F Assigned Patient Location: [facility] Current Patient Location: [facility] Accession/Order Number: [id number] Exam Date: 07/05/2024 09:18 Report Date: 07/05/2024 [...] Garay M.D. Signed By:07/05/242321 DD/ 18 TD/TT: Slot Shift Manager: us Generic External Data Provider [facility] Final Result documented in this encounter Visit Diagnoses Not on filedocumented in this encounter Additional Health Concerns Assessment Noted Time PHQ-9 Depression Total Score: 7 05/22/20 23 2:00 PM EST documented as of this encounter Care Teams Emergency Management Program Specialist Relationship Specialty Start Date End Date Jayme Perez MD [address] [facility] [address] [place] [address] PCP - General Family Medicine 11/25/22 Jayme Perez MD [address] [facility] [address] [place] [address] PCP - ACO Reach 12/05/22 Mick Farmer DO [address] [place] [address] Referring Physician Ophthalmology 08/21/23 Renato Santacruz MD [address] [place] [address] Referring Physician Urology 08/21/23 Chuy Wood MD [address] [facility] Professional building 1 [place] [address] Referring Physician Rheumatology 08/21/23 documented as of this encounter
--- OUTSIDE RECORDS SUMMARY | 2025-02-04 12:25 | XMS_ITS | Encounter Summary ---
Author Organization [facility] Address [address] [place] [address] Care Team Providers Care Manager Telemarketing Name Role Phone Jayme Parham MD Primary Care Provider Jayme Parham MD Unavailable [phone] Mick Farmer DO Unavailable [phone] Renato Santacruz MD Unavailable [phone] Chuy Wood MD Unavailable [phone] Encounter Details Date Type Department Care Team (Late st Contact Info) Description 03/19/2023 Abstract [facility] [address] [place] [address] Jayme Parham MD 112 [facility] [address] [place] [address] Social History Tobacco Use Types [...] often do you attend chur ch or nondenominational services? Never 12/11/2022 Active Member of Clubs [...] in a half-way (including now)? No 12/11/2022 Education Answer Date [...] FM [address] [place] [address] Jayme Parham MD [address] [place] [address] documented as of this encounter Visit Diagnoses Not on filedocumented in this encounter Care Teams Manager Telemarketing Relationship Specialty Start Date End Date Jayme Parham MD [address] [place] [address] (Fax) PCP - General Family Medicine 11/25/22 Jayme Parham MD 112 [facility] [address] [place] [address] PCP - ACO Reach 12/05/22 Mick Farmer DO [address] [place] [address] Referring Physician Ophthalmology 08/21/23 Renato Santacruz MD [address] [place] [address] Referring Physician Urology 08/21/23 Chuy Wood MD [address] [facility] Professional building 1 [place] [address] Referring Physician Rheumatology 08/21/23 documented as of this encounter
--- OUTSIDE RECORDS SUMMARY | 2025-02-04 12:25 | XMS_ITS | Encounter Summary ---
Author Organization [facility] Address [address] [place] [address] Care Team Providers Care Occ Therapy Asst Name Role Phone Jayme Parham MD Primary Care Provider [phone] Jayme Parham MD Unavailable [phone] Mick Farmer DO Unavailable [phone] Renato Santacruz MD Unavailable [phone] Chuy Wood MD Unavailable [phone] Encounter Details Date Type Department Care Team (Late st Contact Info) Description 07/16/2023 Orders Only [facility] [address] [place] [address] Jayme Parham MD 112 [facility] 100 [place] [address] Acute cough (Primary Dx); Chronic [...] Recorded Patient Health Questionnaire-2 Score 0 02/06/2023 [facility] - Occupational [...] FM [address] [place] [address] Jayme Parham MD 112 [facility] [address] [place] [address] documented as of this encounter Visit Diagnoses Diagnosis Acute cough- Primary Chronic obstructive pulmonary disease with acute exacerbation (HCC) documented in this encounter Additional Health Concerns Assessment Noted Time PHQ-9 Depression Total Score: 7 05/22/20 23 2:00 PM EST documented as of this encounter Care Teams Occ Therapy Asst Relationship Specialty Start Date End Date Jayme Parham MD [address] [place] [address] PCP - General Family Medicine 11/25/22 Jayme Parham MD [address] [place] [address] PCP - ACO Reach 12/05/22 Mick Farmer DO [address] [place] [address] Referring Physician Ophthalmology 08/21/23 Renato Santacruz MD 290 [place] [address] Referring Physician Urology 08/21/23 Chuy Wood MD [address] [facility] Professional building 1 [place] [phone] Referring Physician Rheumatology 08/21/23 documented as of this encounter
--- OUTSIDE RECORDS SUMMARY | 2025-02-04 12:25 | XMS_ITS | Encounter Summary ---
Author Organization [facility] Address [address] [place] [address] Care Team Providers Care Calender Tender Name Role Phone Jayme Parham MD Primary Care Provider [phone] Jayme Parham MD Unavailable [phone] Mick Farmer DO Unavailable [phone] Renato Santacruz MD Unavailable [phone] Chuy Wood MD Unavailable [phone] Encounter Details Date Type Department Care Team (Late st Contact Info) Description 01/25/2025 Results Follow-Up [facility] [address] [facility] [address] [place] [address] Jayme Parham MD 112 [facility] [address] [place], [place] [address] (Fax) Brain atrophy (Primary Dx); White matter [...] How often do you attend chur or baptism services? Never 04/08/2024 Do you belong to [...] a senior care (including now)? No 12/11/2022 Housing Stability Vital [...] time in the past 12 [address] [facility], were you homeless or living in a senior care (including now)? 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 documented in this encounter Additional Health Concerns Assessment Noted Time PHQ-9 Depression Total Score: 7 11/05/19 25 1:00 PM EDT documented as of this encounter Care Teams Calender Tender Relationship Specialty Start Date End Date Jayme Parham MD 112 [facility] 100 [place] [address] PCP - General Family Medicine 11/25/22 Jayme Parham MD 112 [facility] 100 [place] [address] (Fax) PCP - ACO Reach 12/05/22 Mick Farmer DO 278 [facility] [address] [place] [address] Referring Physician Ophthalmology 08/21/23 Renato Santacruz MD [address] [place] [address] Referring Physician Urology 08/21/23 Chuy Wood MD [address] [facility] Professional building [address] [place] [phone] Referring Physician Rheumatology 08/21/23 documented as of this encounter
--- OUTSIDE RECORDS SUMMARY | 2025-02-04 12:25 | XMS_ITS | Encounter Summary ---
Author Organization [facility] Address [address] [place] [address] Care Team Providers Care Traffic Signal Repairer Name Role Phone Jayme Perez MD Primary Care Provider [phone] Jayme Perez MD Unavailable [phone] Mick Farmer DO Unavailable [phone] Renato Santacruz MD Unavailable [phone] Radames Wood MD Unavailable [phone] Encounter Details Date Type Department Care Team [...] often do you attend chur ch or buddhist services? Never 12/11/2022 Active Member of Clubs [...] 0 02/06/2023 [facility] - Occupational Stress Questionnaire Answer Date [...] 02/08/2025 10:30 AM EDT Office Visit [facility] 100 112 [facility] [address] [place] [address] Jayme Perez MD 112 [facility] 100 [place] [address] documented as of this encounter Procedures Procedure Name Priority Date/Time Associated Diagnosis Comments XR DEXA AXIAL SKELETON 01/14/2024 3:50 PM EDT documented in this encounter Results * XR DEXA AXIAL SKELETON (01/14/2024 3:50 PM EDT) Anatomical Region Laterality Modality Other 01/14/2024 3:50 PM EDT Narrative 01/14/2024 3:53 PM EDT The [address] [place] [address] XRay Report Signed Patient: WILDA SEN MR#: [id number] : 1945 Acct:[id number] Age/Sex: 78 / F ADM Date: 01/14/24 Loc: [facility] Attending Dr: RADAMES WOOD Ordering Physician: RADAMES WOOD Date of Service: 01/14/24 Procedure(s): XR DEXA axial skeleton Accession Number(s): [id number] cc: JAYME PEREZ ; RADAMES WOOD [address] [address] Patient Name: WILDA SEN MRN: [id number] date: 1945 Sex: F Assigned Patient Location: [facility] Current [facility] Location: [facility] Accession/Order Number: [id number] Exam Date: 01/14/2024 12:48 Report Date: 01/14/2024 [...] prevention and treatment of osteoporosis. Osteoporos Int. 2021;33(10):1900-4963. doi: 10.1007/g16529-938-56144-q. Epub 2021Nov 08. Erratum in: Osteoporos Int. 2021Feb 07;: PMID: [id number]; PMCID: [id number]. Electronically authenticated by: VARGHESE GARAY Date: 01/14/2024 15:50 Dictated By: Varghese Garay M.D. Signed By: 01/14/24 1553 DD/ 1550 TD/TT: Loan Manager: Procedure Note Radiology, Radiologist, MD - 01/14/2024 The [place] [id number] XRay Report Signed Patient: WILDA SEN R#: [id number] : 1945cct:[id number] Age/Sex: 78 / FADM Date: 01/14/24 Loc: RAD Attending Dr: RADAMES WOOD Ordering Physician: RADAMES WOOD Date of Service: 01/14/24 Procedure(s): XR DEXA axial skeleton Accession Number(s): [id number] cc: JAYME PEREZ ; RADAMES WOOD The [address] [address] Patient Name: WILDA SEN MRN: [id number] date: 1945 Sex: F Assigned Patient Location: [facility] Current Patient Location: [facility] Accession/Order Number: [id number] Exam Date: 01/14/2024 12:48 Report Date: 01/14/2024 [...] 10-year hip fracture risk >= 3% or [id number] major osteoporosis-related fracture risk >= 20% (i.e., [...] to prevention and treatment of osteoporosis.Osteoporos Int. 2021;33(10):6817-6398. doi: 10.1007/e87090-710-18488-d. Epub . Erratum in: Osteoporos Int. 2021Feb 07;: PMID: [id number]; PMCID: [id number]. Electronically authenticated by: VARGHESE GARAY Date: 01/14/2024 15:50 Dictated By: Varghese Garay M.D. Signed By:01/14/24 1553 DD/ 1550 TD/TT: Loan Manager: us Generic External Data Provider [facility] Final Result documented in this encounter Visit Diagnoses Not on filedocumented in this encounter Additional Health Concerns Assessment Noted Time PHQ-9 Depression Total Score: 7 05/22/20 23 2:00 PM EST documented as of this encounter Care Teams Traffic Signal Repairer Relationship Specialty Start Date End Date Jayme Perez MD [address] [address] PCP - General Family Medicine 11/25/22 Jayme Perez MD [address] [address] PCP - ACO Reach 12/05/22 Mick Farmer DO [address] [place] [address] 300 [place] [address] Referring Physician Ophthalmology 08/21/23 Renato Santacruz MD [address] [place] [address] Referring Physician Urology 08/21/23 Radames Wood MD 2500 [address] [facility] Professional [address] [address] Referring Physician Rheumatology 08/21/23 documented as of this encounter
--- OUTSIDE RECORDS SUMMARY | 2025-02-04 12:25 | XMS_ITS | Encounter Summary ---
Author Organization [facility] Address [address] [place] [address] Care Team Providers Care Icebox Man Name Role Phone Jayme Perez MD Primary Care Provider [phone] Jayme Perez MD Unavailable [phone] Mick Farmer DO Unavailable [phone] Renato Santacruz MD Unavailable [phone] Chuy Wood MD Unavailable [phone] Encounter Details Date Type Department Care Team (Late st Contact Info) Description 02/02/2025 Clinisync Result Encounter [facility] External Department Unsolicited [...] attend chur ch or restoration services? Never 04/08/2024 Do you belong to [...] Recorded Patient Health Questionnaire-2 Score 0 11/04/2024 [facility] [...] 02/08/2025 10:30 AM EDT Office Visit [facility] [address] [facility] 100 [place] [address] Jayme Perez MD [address] [place] [address] [address] [place] [address] documented as of this encounter Procedures Procedure Name Priority Date/Time Associated Diagnosis Comments XR ABDOMEN 1V 02/02/2025 10:30 AM EDT documented in this encounter Results * XR ABDOMEN 1V (02/02/2025 10:30 AM EDT) Anatomical Region Laterality Modality Other 02/02/2025 10:3 0 AM EDT Narrative 02/02/2025 10:33 AM EDT [address] [address] XRay Report Signed Patient: WILDA SEN MR#: [id number] : 1945 Acct:[id number] Age/Sex: 79 / F ADM Date: 02/02/25 Loc: RAD Attending Dr: Williams Jackson M.D. Ordering Physician: Williams Jackson M.D. Date of Service: 02/02/25 Procedure(s): XR abdomen 1V Accession Number(s): [id number] cc: Williams Jackson M.D.; JAYME PEREZ [address] [address] Patient Name: WILDA SEN MRN: [id number] date: 1945 Sex: F Assigned Patient Location: RAD Current Patient Location: RAD Accession/Order Number: [id number] Exam Date: 02/02/2025 10:29 Report Date: 02/02/2025 10:30 At the request of: WILLIAMS JACKSON MD Procedure: XR abdomen 1V KUB: CLINICAL INFORMATION: Kidney stone follow-up COMPARISON: CT abdomen and pelvis 01/31/2025 FINDINGS: Left-sided double-J ureteral stent is in place. No definite stone is seen along the course of the stent. Presumed phleboliths are seen within the pelvis. Subtle bilateral nephrolithiasis is present largest measuring 3 mm within the left kidney. No bowel obstruction or free air. Osseous structures demonstrate degenerative change. XR/XR abdomen 1V IMPRESSION: BILATERAL NEPHROLITHIASIS WITH LEFT-SIDED DOUBLE-J URETERAL STENT IN PLACE. NO DEFINITE STONE IS SEEN ALONG THE COURSE OF THE STENT. Impression dictated by: Kevan Zhou Jr., D.O. 02/02/2025 10:30 AM Dictation Location: [place] [address] Electronically authenticated by: [id number] Y Date: 02/02/2025 10:30 Dictated By: Kevan Zhou M.D. Signed By: 02/02/25 1033 DD/ 1030 TD/TT: Drapery Counselor: Procedure Note Radiology, Radiologist, MD - 02/02/2025 [place] [address] XRay Report Signed Patient: WILDA SEN JMR#: [id number] : 1945cct:[id number] Age/Sex: 79 / FADM Date: 02/02/25 Loc: RAD Attending Dr: Williams Jackson M.D. Ordering Physician: Williams Jackson M.D. Date of Service: 02/02/25 Procedure(s): XR abdomen 1V Accession Number(s): [id number] cc: Williams Jackson M.D.; JAYME PEREZ [place] [address] Patient Name: WILDA SEN MRN: [id number] date: 1945 Sex: F Assigned Patient Location: [facility] Current Patient Location: RAD Accession/Order Number: [id number] Exam Date: 02/02/2025 10:29 Report Date: 02/02/2025 10:30 At the request of: WILLIAMS JACKSON MD Procedure: XR abdomen 1V KUB: CLINICAL INFORMATION: Kidney stone follow-up COMPARISON: CT abdomen and pelvis 01/31/2025 FINDINGS: Left-sided double-J ureteral stent is in place. No definitestone is seen along the course of the stent. Presumed phleboliths are seenwithin the pelvis. Subtle bilateral nephrolithiasis is present largest measuring3 mm within the left kidney. No bowel obstruction or free air. Osseous structures demonstrate degenerative change. XR/XR abdomen 1V IMPRESSION: BILATERAL NEPHROLITHIASIS WITH LEFT-SIDED DOUBLE-J URETERAL STENT INPLACE. NO DEFINITE STONE IS SEEN ALONG THE COURSE OF THE STENT. Impression dictated by: Kevan Zhou Jr., D.O. 02/02/2025 10:30 AM Dictation Location: [place] [address] Electronically authenticated by: [id number] Y Date: 0:30 Dictated By: Kevan Zhou M.D. Signed By:02/02/25 1033 DD/ 1030 TD/TT: Drapery Counselor: us Generic External Data Provider [facility] Final Result documented in this encounter Visit Diagnoses Not on filedocumented in this encounter Additional Health Concerns Assessment Noted Time PHQ-9 Depression Total Score: 7 11/05/19 25 1:00 PM EDT documented as of this encounter Care Teams Icebox Man Relationship Specialty Start Date End Date Jayme Perez MD [address] [address] PCP - General Family Medicine 11/25/22 Jayme Perez MD [address] [address] PCP - ACO Reach 12/05/22 Mick Farmer DO [address] [place] [address] Referring Physician Ophthalmology 08/21/23 Renato Santacruz MD 290 [place] [address] Referring Physician Urology 08/21/23 Chuy Wood MD [address] Professional building [address] [place] [phone] Referring Physician Rheumatology 08/21/23 documented as of this encounter
--- OUTSIDE RECORDS SUMMARY | 2025-02-04 12:25 | XMS_ITS | Encounter Summary ---
Author Organization [facility] Address [address] [place] [address] Care Team Providers Care Second Helper Name Role Phone Jayme Parham MD Primary Care Provider [phone] Jayme Parham MD Unavailable [phone] Mick Farmer DO Unavailable [phone] Renato Santacruz MD Unavailable [phone] Chuy Wood MD Unavailable [phone] Encounter Details Date Type Department Care Team (Late st Contact Info) Description 07/16/2023 Orders Only [facility] [address] [place] [address] Alban Montilla MD [address] [place], [place] [address] Social History Tobacco Use Types Packs/Day Years [...] often do you attend chur ch or protestant services? Never 12/11/2022 Active Member of Clubs [...] Recorded Patient Health Questionnaire-2 Score 0 02/06/2023 [facility] - Occupational Stress Questionnaire Answer Date [...] FM [address] [place] [address] Jayme Parham MD 112 [facility] [address] [place] [address] documented as of this encounter Procedures Procedure [...] documented as of this encounter Care Teams Second Helper Relationship Specialty Start Date End Date Jayme Parham MD [address] [place] [address] PCP - General Family Medicine 11/25/22 Jayme Parham MD [address] [place] [address] (Fax) PCP - ACO Reach 12/05/22 Mick Farmer DO [address] [place] [address] Referring Physician Ophthalmology 08/21/23 Renato Santacruz MD 290 [place] [address] Referring Physician Urology 08/21/23 Chuy Wood MD [address] [facility] Professional building 1 [place] [address] Referring Physician Rheumatology 08/21/23 documented as of this encounter
--- OUTSIDE RECORDS SUMMARY | 2025-02-04 12:25 | XMS_ITS | Encounter Summary ---
Author Organization [facility] Address [address] [place] [address] Care Team Providers Care Bin Operator Name Role Phone Jayme Parham MD Primary Care Provider [phone] Jayme Parham MD Unavailable [phone] Mick Farmer DO Unavailable [phone] Renato Santacruz MD Unavailable [phone] Chuy oWod MD Unavailable [phone] Encounter Details Date Type Department Care Team (Late st Contact Info) Description 01/23/2023 Abstract [facility] [address] [place] [address] Jayme Parham MD 112 [facility] [address] [place] [address] Social History Tobacco Use Types [...] often do you attend chur ch or hinduism services? Never 12/11/2022 Active Member of Clubs [...] Recorded Patient Health Questionnaire-2 Score 0 12/12/2022 [facility] of Occupat ional Health - Occupational [...] [address] [place] [address] Jayme Parham MD [address] [place] [address] documented as of this encounter Visit Diagnoses Not on filedocumented in this encounter Care Teams Bin Operator Relationship Specialty Start Date End Date Jayme Parham MD [address] [place] [address] PCP - General Family Medicine 11/25/22 Jayme Parham MD [address] [place] [address] PCP - ACO Reach 12/05/22 Mick Farmer DO [address] [place] [address] Referring Physician Ophthalmology 08/21/23 Renato Santacruz MD [address] [place] [address] Referring Physician Urology 08/21/23 Chuy Wodo MD [address] [facility] Professional building 1 [place] [address] Referring Physician Rheumatology 08/21/23 documented as of this encounter
--- OUTSIDE RECORDS SUMMARY | 2025-02-04 12:25 | XMS_ITS | Encounter Summary ---
Author Organization [facility] Address [address] [place] [address] Care Team Providers Care Special Ed Assistant Name Role Phone Jayme Parham MD Primary Care Provider [phone] Jayme Parham MD Unavailable [phone] Mick Farmer DO Unavailable [phone] Renato Santacruz MD Unavailable [phone] Chuy Wood MD Unavailable [phone] Encounter Details Date Type Department Care Team (Late st Contact Info) Description 04/19/2024 Orders Only [facility] [address] [place] [address] Jayme Parham MD [address] [place] [address] Social History Tobacco Use Types Packs/Day Years [...] How often do you attend chur or oriental orthodox services? Never 04/08/2024 Do you belong to [...] Recorded Patient Health Questionnaire-2 Score 0 02/06/2023 [facility] of Occupat ional Health - Occupational [...] in a alf (including now)? No 12/11/2022 Housing Stability Vital Sign Answer Stefan e Recorded In the last 12 months, was t here a time when you were not able to pay the mortgage or rent on time? No 04/08/2024 In the past 12 months, how m any times have you moved where you were living? 0 04/08/2024 At any time in the past 12 m [facility], were you homeless or living in a alf (including now)? No 04/08/2024 Education Answer Date [...] Visit [facility] 100 [address] [facility] [address] [place] [address] Jayme Parham MD [address] [facility] 100 [place] [address] (Fax) documented as of this encounter Visit Diagnoses Not on filedocumented in this encounter Additional Health Concerns Assessment Noted Time PHQ-9 Depression Total Score: 7 05/22/20 23 2:00 PM EST documented as of this encounter Care Teams Special Ed Assistant Relationship Specialty Start Date End Date Jayme Parham MD 112 [facility] 100 [place] [address] (Fax) PCP - General Family Medicine 11/25/22 Jayme Parham MD 112 [facility] 100 [place] [address] (Fax) PCP - ACO Reach 12/05/22 Mick Farmer DO [address] [place] [address] Referring Physician Ophthalmology 08/21/23 Renato Santacruz MD [address] [place] [address] Referring Physician Urology 08/21/23 Chuy Wood MD [address] [facility] Professional building 1 [place] [address] Referring Physician Rheumatology 08/21/23 documented as of this encounter
--- OUTSIDE RECORDS SUMMARY | 2025-02-04 12:25 | XMS_ITS | Encounter Summary ---
Author Organization [facility] Address [address] [place] [address] Care Team Providers Care Peoplesoft Administrator Name Role Phone Jayme Parham MD Primary Care Provider [phone] Jayme Parham MD Unavailable [phone] Mick Farmer DO Unavailable [phone] Renato Santacruz MD Unavailable [phone] Chuy Wood MD Unavailable [phone] Encounter Details Date Type Department Care Team (Late st Contact Info) Description 03/05/2023 Orders Only [facility] [address] [place] [address] Jayme Parham MD 112 [facility] 100 [place] [address] Social History Tobacco Use Types [...] Recorded Patient Health Questionnaire-2 Score 0 02/06/2023 [facility] of Occupat ional Health - Occupational Stress [...] FM [address] [place] [address] Jayme Parham MD 112 [facility] [address] [place] [address] documented as of this encounter Procedures Procedure Name Priority Date/Time Associated Diagnosis Comments PROTHROMBIN TIME-INR Routine 02/18/2023 10:07 AM EDT documented in this encounter Results * Protime-INR (02/18/2023 10:07 AM EDT) Blood Venous blood specimen / Unknown Jayme Parham MD LAB BLOOD ORDERABLES Edited Result - Final EXTERNAL LAB documented in this encounter Visit Diagnoses Not on filedocumented in this encounter Care Teams Peoplesoft Administrator Relationship Specialty Start Date End Date Jayme Parham MD [address] [place] [address] PCP - General Family Medicine 11/25/22 Jayme Parham MD [address] [place] [address] PCP - ACO Reach 12/05/22 Mick Farmer DO [address] [place] [address] Referring Physician Ophthalmology 08/21/23 Renato Santacruz MD [address] [place] [address] Referring Physician Urology 08/21/23 Chuy Wood MD [address] [facility] Professional building 1 [place] [address] Referring Physician Rheumatology 08/21/23 documented as of this encounter
--- OUTSIDE RECORDS SUMMARY | 2025-02-04 12:25 | XMS_ITS | Encounter Summary ---
Author Organization [facility] Address [address] [place] [address] Care Team Providers Care Facility Supervisor Name Role Phone Jayme Parham MD Primary Care Provider [phone] Jayme Parham MD Unavailable [phone] Mick Farmer DO Unavailable [phone] Renato Santacruz MD Unavailable [phone] Chuy Wood MD Unavailable [phone] Encounter Details Date Type Department Care Team [...] often do you attend chur ch or voodoo services? Never 04/08/2024 Do you belong to [...] Questionnaire-2 Score 0 11/04/2024 [facility] of Occupat [...] in a prison (including now)? No 12/11/2022 Housing Stability Vital Sign Answer Stefan e Recorded In the last 12 months, was t here a time when you were not able to pay the mortgage or rent on time? No 04/08/2024 In the past 12 months, how m any times have you moved where you were living? 0 04/08/2024 At any time in the past 12 m [facility], were you homeless or living in a prison (including now)? No 04/08/2024 Education Answer Date [...] 02/08/2025 10:30 AM EDT Office Visit [facility] [address] [facility] 100 [place] [address] Jayme Parham MD [address] [place] [address] documented as of this encounter Procedures Procedure Name Priority Date/Time Associated Diagnosis Comments [facility] CMP (CMP) (FOR REMOTE [facility] USE) Routine 01/21/2025 1:58 PM EDT ALL [...] CLINISYNC F inal Result Performing Organization Address City/[facility]/ZIP Co de Phone Number CLINIS[facility]NC [facility] * (ABNORMAL) ALL PHOSPHOROUS (01/21/2025 1:58 PM EDT) PHOSPHORUS 2.0(L) 2.6 - 4.7 mg/dL [facility]H 01/21/2025 1:58 PM EDT 01/21/2025 1:59 PM EDT Narrative CLINISYNC - 01/21/2025 3:07 PM EDT Generic External Data Provider CLINISYNC F inal Result [facility] * (ABNORMAL) [facility] CMP (CMP) (FOR REMOTE [facility] USE) (01/21/2025 1:58 PM EDT) SODIUM 144 136 - 145 mmol/L TBH POTASSIUM 4.2 3.5 - 5.1 mmol/L TBH CHLORIDE 106 98 - 107 mmol/L TBH CARBON DIOXIDE 29.3 21.0 - 32.0 mmol/L TBH ANION GAP 12.9 TBH GLUCOSE 115(H) 74 - 106 mg/dL TBH BLOOD UREA NITROGEN 21.0(H) 7.0 - 18.0 mg/dL TBH CREATININE 0.79 0.55 - 1.02 mg/dL TBH TBH EGFR-AF PRYDEINIG >60 >=60 mL/min/1. 73m 2 TBH TBH EGFR-NON AF PRYDEINIG >60 >=60 mL/min/1. 73m 2 TBH BUN [...] External Data Provider CLINISYNC F inal Result [facility] * ALL SED RATE (01/21/2025 1:58 PM EDT) [facility] SED RATE 7 <=30 mm/hr TBH 01/21/2025 1:58 PM EDT 01/21/2025 1:59 PM EDT Narrative CLINISYNC - 01/21/2025 2:53 PM EDT us Generic External Data Provider CLINISYNC F inal Result [facility] * (ABNORMAL) ALL CBC WITH AUTO DIFF [...] documented as of this encounter Care Teams Facility Supervisor Relationship Specialty Start Date End Date Jayme Parham MD [address] [place] [address] PCP - General Family Medicine 11/25/22 Jayme Parham MD [address] [place] [address] PCP - ACO Reach 12/05/22 Mick Farmer DO [address] [place] [address] Referring Physician Ophthalmology 08/21/23 Renato Santacruz MD [address] [place] [address] Referring Physician Urology 08/21/23 Chuy Wood MD [address] [facility] Professional building [address] [place] [phone] Referring Physician Rheumatology 08/21/23 documented as of this encounter
--- OUTSIDE RECORDS SUMMARY | 2025-02-04 12:25 | XMS_ITS | Encounter Summary ---
Author Organization [facility] Address [address] [place] [address] Care Team Providers Care Oyster Grower Name Role Phone Jayme Perez MD Primary Care Provider [phone] Jayme Perez MD Unavailable [phone] Mick Farmer DO Unavailable [phone] Renato Santacruz MD Unavailable [phone] Chuy Wood MD Unavailable [phone] Encounter Details Date Type Department Care Team (Late st Contact Info) Description 04/23/2024 Clinisync Result Encounter [facility] External Department Unsolicited Jayme Perez MD 112 [facility] 100 [place] [address] Social History Tobacco Use Types [...] any clubs o r organizations such as temple groups, unions, fraternal or athletic groups, or [...] Health Questionnaire-2 Score 0 02/06/2023 [facility] [place] of Occupat ional Health - Occupational Stress [...] Visit [facility] 100 112 [facility] 100 [place] [address] Jayme Perez MD 112 [facility] 100 [place] [address] documented as of this encounter Procedures Procedure Name Priority Date/Time Associated Diagnosis Comments CT ABDOMEN PELVIS W CON 04/23/2024 4:45 AM EDT documented in this encounter Results * CT ABDOMEN PELVIS W CON (04/23/2024 4:45 AM EDT) Anatomical Region Laterality Modality Other 04/23/2024 4:45 AM EDT Narrative 04/23/2024 4:48 AM EDT [address] [address] [address] Scan Report Signed Patient: WILDA SEN MR#: [id number] : 1945 Acct:[id number] Age/Sex: 79 / F ADM Date: 04/22/24 Loc: LAB Attending Dr: JAYME PEREZ Ordering Physician: JAYME PEREZ Date of Service: 04/22/24 Procedure(s): CT abdomen pelvis w con Accession Number(s): [id number] cc: JAYME PEREZ [address] [address] Patient Name: WILDA SEN MRN: [id number] date: 1945 Sex: F Assigned Patient Location: LAB Current Patient Location: Accession/Order Number: [id number] Exam Date: 04/22/2024 12:40 Report Date: 04/23/2024 [...] M.D. Signed By: 04/23/24447 DD/ 4 TD/TT: Dry Can Tender: Procedure Note Radiology, Radiologist, MD - 04/23/2024 [place] [address] CT Scan Report Signed Patient: WILDA SEN JMR#: [id number] : 1945cct:[id number] Age/Sex: 79 / FADM Date: 04/22/24 Loc: LAB Attending Dr: JAYME PEREZ Ordering Physician: JAYME PERZE Date of Service: 04/22/24 Procedure(s): CT abdomen pelvis w con Accession Number(s): [id number] cc: JAYME PEREZ [place] [address] Patient Name: WILDA SEN MRN: [id number] date: 1945 Sex: F Assigned Patient Location: LAB Current Patient Location: Accession/Order Number: [id number] Exam Date: 04/22/2024 12:40 Report Date: 04/23/2024 [...] Garay M.D. Signed By:04/23/24447 DD/ 4 TD/TT: Dry Can Tender: Jayme Perez MD [facility] IMAGING Final Resu lt documented in this encounter Visit Diagnoses Not on filedocumented in this encounter Additional Health Concerns Assessment Noted Time PHQ-9 Depression Total Score: 7 05/22/20 23 2:00 PM EST documented as of this encounter Care Teams Oyster Grower Relationship Specialty Start Date End Date Jayme Perez MD [address] [place] [address] PCP - General Family Medicine 11/25/22 Jayme Perez MD [address] [place] [address] PCP - ACO Reach 12/05/22 Mick Farmer DO [address] [place] [address] Referring Physician Ophthalmology 08/21/23 Renato Santacruz MD [address] [place] [address] Referring Physician Urology 08/21/23 Chuy Wood MD [address] [facility] Professional building [address] [place] [phone] Referring Physician Rheumatology 08/21/23 documented as of this encounter
--- OUTSIDE RECORDS SUMMARY | 2025-02-04 12:25 | XMS_ITS | Encounter Summary ---
Author Organization [facility] Address [address] [place] [address] Care Team Providers Care Electrician'S Assistant Name Role Phone Jayme Parham MD Primary Care Provider [phone] Jayme Parham MD Unavailable [phone] Mick Farmer DO Unavailable [phone] Renato Santacruz MD Unavailable [phone] Chuy Wood MD Unavailable [phone] Encounter Details Date Type Department Care Team (Late st Contact Info) Description 05/05/2024 Orders Only [facility] [address] [place] [address] [place], [place] Unexplained weight loss; Type 2 diabetes mellitus with stage 3a chronic kidney disease, without long-term current use of insulin (HCC); History of melanoma; Former smoker; Iron deficiency; Psoriatic arthropathy (HCC); Immunosuppressed status (HCC); Diverticulosis of large intestine without hemorrhage; History of pneumonectomy; halfway current use of anticoagulant; 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 [...] often do you attend [facility] or religion services? 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 smoker Personal history of tobacco use, presenting hazards to health Iron deficiency 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) Psoriatic arthropathy Immunosuppressed status (HCC) Diverticulosis of large intestine without hemorrhage History of pneumonectomy 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, 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 (HCC) Atrial fibrillation Medication monitoring encounter Encounter for therapeutic drug monitoring documented in this encounter Additional Health Concerns Assessment Noted Time PHQ-9 Depression Total Score: 7 05/22/20 23 2:00 PM EST documented as of this encounter Care Teams Electrician'S Assistant Relationship Specialty Start Date End Date Jayme Parham MD [address] [address] (Fax) PCP - General Family Medicine 11/25/22 Jayme Parham MD 112 [facility] 100 [place] [address] (Fax) PCP - ACO Reach 12/05/22 Mick Farmer DO [address] [place] [address] Referring Physician Ophthalmology 08/21/23 Renato Santacruz MD 290 [place] [address] Referring Physician Urology 08/21/23 Chuy Wood MD [address] [facility] Professional [address] [phone] Referring Physician Rheumatology 08/21/23 documented as of this encounter
--- OUTSIDE RECORDS SUMMARY | 2025-02-04 12:25 | XMS_ITS | Encounter Summary ---
Author Organization [facility] Address [address] [place] [address] Care Team Providers Care Advanced Practice Nurse Name Role Phone Jayme Parham MD Primary Care Provider [phone] Jayme Parham MD Unavailable [phone] Mick Farmer DO Unavailable [phone] Renato Santacruz MD Unavailable [phone] Chuy Wood MD Unavailable [phone] Encounter Details Date Type Department Care Team (Late st Contact Info) Description 07/17/2023 Abstract [facility] [address] [place] [address] Alban Montilla MD [address] [place], [place] [address] Social History Tobacco Use Types Packs/Day Years [...] attend chur ch or hindu services? Never 12/11/2022 Active Member of Clubs [...] Recorded Patient Health Questionnaire-2 Score 0 02/06/2023 [facility] of Occupat ional Health [...] a group home (including now)? No 12/11/2022 Education Answer [...] FM [address] [place] [address] Jayme Parham MD [address] [address] (Fax) documented as of this encounter Visit Diagnoses Not on filedocumented in this encounter Additional Health Concerns Assessment Noted Time PHQ-9 Depression Total Score: 7 05/22/20 23 2:00 PM EST documented as of this encounter Care Teams Advanced Practice Nurse Relationship Specialty Start Date End Date Jayme Parham MD [address] [place] [address] PCP - General Family Medicine 11/25/22 Jayme Parham MD 112 [facility] 100 [place] [address] PCP - ACO Reach 12/05/22 Mick Farmer DO [address] [place] [address] Referring Physician Ophthalmology 08/21/23 Renato Santacruz MD [address] [place] [address] Referring Physician Urology 08/21/23 Chuy Wood MD [address] [facility] [address] [place] [phone] Referring Physician Rheumatology 08/21/23 documented as of this encounter
--- NOTE | 2025-02-04 12:30 | ECG_ITS ---
[facility] Test Date: 2025-02-04 Pat Name: KASEY SEN Department: Room: 2201 Gender: Female Litigation Services Manager: : 1945 Requested By: FAYE PEREZ Order Number: [id number] Mago MD: RAGHAV JARRELL M.D. Measurements Intervals [place] Rate: 117 P: -[address] DC: -58162 QRS: 33 QRSD: 74 T: 18 QT: 296 QTc: 365 Interpretive Statements 03139 Atrial fibrillation with rapid ventricular response 9140 abnormal rhythm ECG Compared to ECG 07/15/2023 12:44:18 Sinus tachycardia no longer present Electronically Signed On 02-05-2025 8:19:46 EDT by RAGHAV JARRELL M.D.
--- NOTE | 2025-02-04 12:40 | ED.GENADUL1 ---
HPI HPI - General Adult General Chief complaint: Abdominal Pain Stated complaint: L FLANK PAIN KIDNEY STONE Time Seen by Provider: 02/04/25 12:26 Source: patient Mode of arrival: walk-in Limitations: no limitations History of Present Illness HPI narrative: 79-year-old female presenting to the emergency department for left-sided flank and abdominal pain. She was diagnosed with a kidney stone recently and was hospitalized and has a stent placed on the left side. The pain now has moved more towards the left lower quadrant. No trauma or gross hematuria. She has had kidney stones before. The pain is moderate to severe. Related Data Home Medications ?Medication ?Instructions ?Recorded ?Confirmed acarbose 100 mg tablet 100 mg PO TID 08/13/23 01/31/25 acetaminophen 500 mg capsule 1,000 mg PO BID PRN pain 08/13/23 01/31/25 albuterol sulfate 90 mcg/actuation 2 inh inhalation Q6H PRN shortness 08/13/23 01/31/25 aerosol inhaler (Ventolin HFA) of breath or wheezing calcium citrate 200 mg PO TID 08/13/23 01/31/25 cholecalciferol (vitamin D3) 125 5,000 unit PO DAILY 08/13/23 01/31/25 mcg (5,000 unit) capsule esomeprazole magnesium 20 mg 20 mg PO DAILY 08/13/23 01/31/25 tablet,delayed release golimumab 12.5 mg/mL intravenous IV 08/13/23 solution (Simponi ARIA) iron bisglycinate chelate 30 mg PO DAILY 08/13/23 01/31/25 mecobalamin (vitamin B12) 1,000 1,000 mcg PO DAILY 08/13/23 01/31/25 mcg chewable tablet (B12 Active) metformin 1,000 mg tablet 1,000 mg PO BID 08/13/23 01/31/25 methotrexate sodium 25 mg/mL 5 mg IM QWEEK 08/13/23 01/31/25 injection solution warfarin 3 mg tablet 4 mg PO DAILY 08/13/23 01/31/25 Held on 02/01/25. Instructions: Resume on 02/05/25. You had a stone removal by urology, Urology recommends you to hold on taking warfarin until 02/05/2025 prednisone 5 mg tablet 5 mg PO DAILY 01/31/25 01/31/25 Previous Rx's ?Medication ?Instructions ?Recorded docusate sodium 100 mg capsule 100 mg PO BID PRN Constipation 10 02/01/25 days #20 caps Allergies Allergy/AdvReac Type Severity Reaction Status Date / Time ciprofloxacin (From Cipro) Allergy Severe swelling Verified 02/04/25 12:37 Latex, Natural Rubber Allergy Severe Rash Verified 02/04/25 12:37 metronidazole (From Metrogel) Allergy Severe Rash Verified 02/04/25 12:37 NSAIDS (Non-Steroidal Allergy Severe Swelling Verified 02/04/25 12:37 Anti-Inflamma of Lip/Tongue/Throat Sulfa (Sulfonamide Allergy Severe Rash Verified 02/04/25 12:37 Antibiotics) ketorolac (From Toradol) AdvReac Severe Nausea Verified 02/04/25 12:37 pioglitazone (From Actos) AdvReac Severe Nausea Verified 02/04/25 12:37 Opioid HPI Opioid Management Most Recent Opioid Data: Last Pain Scale 10 Today, 15:55 Last Pain Assessment 01/31/25, 13:49 Last MAR Pain Assessment Today, 12:47 Last ORT Total Score 10 01/31/25, 13:48 Last ORT Risk Category High Risk 01/31/25, 13:48 Review of Systems ROS Narrative A ten point review of systems is negative except as noted above. [facility] Medical History (Updated 02/04/25 @ 16:08 by Stephon Tapia MD) S/P extracorporeal shock wave therapy ?Z98.890 - Other specified postprocedural states (ICD-10) Anemia ?D64.9 - Anemia, unspecified (ICD-10) COVID-19 ?U07.1 - COVID-19 (ICD-10) GERD (gastroesophageal reflux disease) ?K21.9 - Gastro-esophageal reflux disease without esophagitis (ICD-10) Diabetes ?E11.9 - Type 2 diabetes mellitus without complications (ICD-10) Atrial fibrillation ?I48.91 - Unspecified atrial fibrillation (ICD-10) Psoriatic arthritis ?L40.50 - Arthropathic psoriasis, unspecified (ICD-10) Uterine cancer ?C55 - Malignant neoplasm of uterus, part unspecified (ICD-10) COPD exacerbation (07/2023) ?J44.1 - Chronic obstructive pulmonary disease with (acute) exacerbation (ICD-10) RSV (respiratory syncytial virus infection) (07/2023) ?B33.8 - Other specified viral diseases (ICD-10) Lung mass ?R91.8 - Other nonspecific abnormal finding of lung field (ICD-10) Surgical History (Updated 08/13/23 @ 14:04 by Anitha Moctezuma NP) S/P cystoscopy ?Z98.890 - Other specified postprocedural states (ICD-10) H/O ureteroscopy ?Z98.890 - Other specified postprocedural states (ICD-10) S/P ureteral stent placement ?Z96.0 - Presence of urogenital implants (ICD-10) History of colonoscopy ?Z98.890 - Other specified postprocedural states (ICD-10) History of appendectomy ?Z90.49 - Acquired absence of other specified parts of digestive tract (ICD-10) History of tonsillectomy ?Z90.89 - Acquired absence of other organs (ICD-10) S/P cataract extraction and insertion of intraocular lens ?Z98.49 - Cataract extraction status, unspecified eye (ICD-10) ?Z96.1 - Presence of intraocular lens (ICD-10) History of lobectomy of lung ?Z90.2 - Acquired absence of lung [part of] (ICD-10) History of hysterectomy ?Z90.710 - Acquired absence of both cervix and uterus (ICD-10) Family History (Updated 08/13/23 @ 14:04 by Anitha Moctezuma NP) Other Family history of heart disease Family history of myocardial infarction Family history of stroke Social History (Updated 01/31/25 @ 14:35 by Cassia Schwab) Within the past year, how often did you have a drink containing alcohol: never Score interpretation: A score less than 3 is consistent with normal alcohol consumption. Smoking status: Former smoker Do you use any of these nicotine containing products: vaping products Non-prescribed substance use: denies use and cannabis (any form) Non-prescribed substance use details: THC use daily Previous occupational history: RETIRED Known occupational exposures/hazards: No Highest level of school completed/degree received: high school graduate Are you now , , , , never or living with a partner: In a typical week, how many times do you talk on the telephone with family, friends, or neighbors: 3 or more times per week How often do you get together with friends or relatives: 3 or more times per week How often do you attend sabianism or zoroastrianism services: never Do you belong to any clubs or organizations such as sabianism groups unions, fraternal or athletic groups, or school groups: no Total score: 1 Score interpretation: A score of less than or equal to 1 indicates the most socially isolated. Little interest or pleasure in doing things: not at all Feeling down, depressed, or hopeless: not at all Feel stressed/tense/nervous/anxious/difficulty sleeping: not at all Due to disability, difficulty making decisions: No Do you think of yourself as: straight/heterosexual Gender Identity: female Exam Narrative Exam Narrative: Nurses note and vital signs reviewed and patient is not hypoxic. General: The patient appears uncomfortable. Skin: Warm, dry, no pallor noted. There is no rash noted. Head: Normocephalic, atraumatic Eye: Normal conjunctiva, no drainage Ears, Nose, Mouth, and Throat: oral mucosa is moist. Nares patent. Mouth without vesicles. Ear canals patent. Tm's without Erythema Cardiovascular: Regular Rate and Rhythm Respiratory: Patient is in no distress, no accessory muscle use, lungs are clear to auscultation, no wheezing, rales or rhonchi Back: non-tender, no CVA tenderness bilaterally to percussion. GI: Normal bowel sounds, no tenderness to palpation, no masses appreciated. No rebound, guarding, or rigidity noted. Musculoskeletal: The patient has no evidence of calf tenderness, no pitting edema, symmetrical pulses noted bilaterally Neurological: A&O x4, normal speech Psychiatric: Cooperative Constitutional Vital Signs, click to edit/add: Last Vital Signs Temp 97.7 F 02/04/25 12:27 Pulse 75 02/04/25 15:30 Resp 26 H 02/04/25 15:30 BP 98/62 02/04/25 15:00 Pulse Ox 100 02/04/25 15:30 O2 Del Method Room Air 02/04/25 12:27 Course Vital Signs Vital signs: Vital Signs Temperature 97.7 F 02/04/25 12:27 Pulse Rate 123 H 02/04/25 12:27 Respiratory Rate 20 02/04/25 12:27 Blood Pressure 113/92 H 02/04/25 12:27 Pulse Oximetry 99 02/04/25 12:27 Oxygen Delivery Method Room Air 02/04/25 12:27 Temperature 97.7 F 02/04/25 12:27 Pulse Rate 75 02/04/25 15:30 Respiratory Rate 26 H 02/04/25 15:30 Blood Pressure 98/62 02/04/25 15:00 Pulse Oximetry 100 02/04/25 15:30 Oxygen Delivery Method Room Air 02/04/25 12:27 Medical Decision Making MDM Narrative Medical decision making narrative: Some white cells are in her urine and she was covered with IV Rocephin and a culture was sent. Renal function is appropriate. CT scan does not show dislodgment of the stent. Case discussed with Dr. Jackson and he does not feel that there is any need for urologic intervention at this point. She will be admitted for observation and pain control. Treatment diagnosis and disposition were discussed with the patient. Differential Diagnosis Differential Diagnosis: Stent dislodgment, UTI, hydronephrosis Lab Data Lab results reviewed: Yes I reviewed the patient's lab results Labs: Lab Results 02/04/25 02/04/25 Range/Units 12:42 13:19 WBC 9.1 (4.0-11.0) 10^3/uL RBC 4.05 L (4.20-5.40) 10^6/uL Hgb 12.7 (12.0-16.0) g/dL Hct 37.7 (36.0-48.0) % MCV 93.1 (81.0-99.0) fL MCH 31.4 (26.7-34.0) pg MCHC 33.7 (29.9-35.2) g/dL RDW 14.4 (11.0-15.0) % Plt Count 307 (150-450) 10^3/uL MPV 9.0 L (9.5-13.5) fL Neut % (Auto) 73.8 (43.0-75.0) % Lymph % (Auto) 18.1 L (20.5-60.0) % [place] % (Auto) 6.8 (1.7-12.0) % Eos % (Auto) 0.7 L (0.9-7.0) % Baso % (Auto) 0.3 (0.2-2.0) % Neut # (Auto) 6.7 H (1.4-6.5) 10^3/uL Lymph # (Auto) 1.7 (1.2-3.8) 10^3/uL [place] # (Auto) 0.6 (0.3-0.8) 10^3/uL Eos # (Auto) 0.1 (0.0-0.7) 10^3/uL Baso # (Auto) 0.0 (0.0-0.1) 10^3/uL Abs Immat Gran (auto) 0.03 (0.00-0.03) 10^3/uL Imm/Tot Granulo (auto) 0.3 (0.0-0.5) % Sodium 139 (136-145) mmol/L Potassium 3.3 L (3.5-5.1) mmol/L Chloride 102 (98-107) mmol/L Carbon Dioxide 28.6 (21.0-32.0) mmol/L Anion Gap 11.7 BUN 15.0 (7.0-18.0) mg/dL Creatinine 0.91 (0.55-1.02) mg/dL Est GFR ( Amer) >60 (>=60 mL/min/1.73m^2) Est GFR (Non-Af Amer) 60 (>=60 mL/min/1.73m^2) BUN/Creatinine Ratio 16.5 Glucose 133 H (74-106) mg/dL Calcium 11.0 H (8.5-10.1) mg/dL Urine Color Lt. yellow (YELLOW) Urine Clarity Sl cloudy (CLEAR) Urine pH 8.0 (5.0-9.0) Ur Specific [place] 1.015 (1.005-1.025) Urine Protein 100 A (NEG/TRACE) mg/dL Urine Glucose (UA) Negative (NEGATIVE) mg/dL Urine Ketones 15 A (NEGATIVE) mg/dL Urine Occult Blood Large A (NEGATIVE) Urine Nitrite Negative (NEGATIVE) Urine Bilirubin Negative (NEGATIVE) Urine Urobilinogen 0.2 (0.2-1.0) EU/dL Ur Leukocyte Esterase Large A (NEGATIVE) Urine RBC 50-75 A (0-2) #/HPF Urine WBC 10-20 A (NONE SEEN) #/HPF Ur Squamous Epith Cells Rare (NONE/RARE) #/LPF Urine Crystals None seen (None Seen) #/HPF Urine Bacteria Small A (NONE SEEN) #/HPF Urine Casts None seen (NONE SEEN) #/LPF Urine Mucus Small A (NONE SEEN) Ur [place] Indicated[place] scan - abdomen: Radiologist's impression: ITS Impressions Abdomen/Pelvis CT 02/04/25 13:16 IMPRESSION: Left-sided double-J ureter stent identified with calculus along the left ureter stents greater degree of hydronephrosis appears mildly improved. Impression dictated by: Tavon Young M.D. 02/04/2025 2:42 PM Dictation Location: [place] [address] Electronically authenticated by: [id number] Y Date: 02/04/2025 14:42 Discharge Plan Discharge Chief Complaint: Abdominal Pain Clinical Impression: Ureteral colic Patient Disposition: Admitted as Observation Time of Disposition Decision: 16:08 Condition: Good
[2025-02-04] MEDS: MORPHINE SULFATE 4 MG/ML VIAL IV ×3 (12:47→15:55)
[2025-02-04 12:58] LABS: Hematocrit 37.7 % (36.0-48.0); Hemoglobin 12.7 g/dL (12.0-16.0); Immature Granulocytes Abs Auto 0.03 10^3/uL (0.00-0.03); Immature Granulocytes Pct Auto 0.3 % (0.0-0.5); Lymphocytes Absolute Auto 1.7 10^3/uL (1.2-3.8); Mean Corpuscular HGB Conc 33.7 g/dL (29.9-35.2); Mean Corpuscular Hemoglobin 31.4 pg (26.7-34.0); Mean Corpuscular Volume 93.1 fL (81.0-99.0); Platelet Count 307 10^3/uL (150-450); Red Blood Count 4.05 10^6/uL (4.20-5.40); White Blood Count 9.1 10^3/uL (4.0-11.0)
[2025-02-04 13:08] LABS: Anion Gap 11.7; Blood Urea Nitrogen 15.0 mg/dL (7.0-18.0); Calcium 11.0 mg/dL (8.5-10.1); Carbon Dioxide 28.6 mmol/L (21.0-32.0); Chloride 102 mmol/L (98-107); Estimated GFR (African America >60 (>=60 mL/min/1.73m^2); Estimated GFR (Non-African Ame 60 (>=60 mL/min/1.73m^2); Glucose 133 mg/dL (74-106); Potassium 3.3 mmol/L (3.5-5.1); Sodium 139 mmol/L (136-145)
--- NOTE | 2025-02-04 13:16 | CT_ITS ---
The [address] [address] Patient Name: KASEY ESN MRN: [id number] date: 1945 Sex: F Assigned Patient Location: ER Current Patient Location: ER Accession/Order Number: [id number] Exam Date: 02/04/2025 14:30 Report Date: 02/04/2025 14:42 At the request of: KAITLIN SNYDER MD Procedure: CT abdomen pelvis wo con CT ABDOMEN AND PELVIS WITHOUT INTRAVENOUS CONTRAST: CLINICAL HISTORY: Left flank pain, has stent COMPARISON: X-ray abdomen 02/02/2025, CT evidence of pelvis 01/31/2025 TECHNIQUE: Spiral images were obtained through the abdomen and pelvis without intravenous contrast. This CT exam was performed using one or more following dose reduction techniques: Automated exposure control, adjustment of the mA and/or kV according to patient size, or use of iterative reconstruction technique. FINDINGS: Lung Bases: [Postsurgical changes right lung base. Minimal right basilar scarring and/or parenchymal fibrotic change.] Organs:Liver hypodensity 2.1 x 3.2 cm in size, indeterminate on this examination possibly geographic fatty infiltration.. Additional hypodensity right anterior lower lobe.[ Left-sided double-J ureteral stent. Left lower pole calculus. Minimal left-sided ureteral and collecting system prominence noted. There are calcific densities identified along the left stents, just past the ureteral pelvic junction measuring 3 mm in size. Multiple right-sided renal calculi, nonobstructive. No right-sided hydronephrosis. Otherwise gallbladder, spleen, adrenals and pancreas unremarkable. GI: Moderate colonic diverticulosis. No bowel obstruction. Scattered air-fluid levels involving the bowel loops. Appendix not visualized.[ Pelvis:[Distal stent within the bladder. Tiny locule of gas anterior bladder wall likely due to recent instrumentation. Hysterectomy.. No adnexal mass.] Peritoneum/Retroperitoneum:No free air or free fluid. Moderate aortic plaque. Aorta nonaneurysmal.[ Abd wall/Bones:Degenerative changes notably lower lumbar spine.[ CT/CT abdomen pelvis wo con IMPRESSION: Left-sided double-J ureter stent identified with calculus along the left ureter stents greater degree of hydronephrosis appears mildly improved. Impression dictated by: Tavon Young M.D. 02/04/2025 2:42 PM Dictation Location: [place] [address] Electronically authenticated by: [id number] Y Date: 02/04/2025 14:42
[2025-02-04 13:36] LABS: Glucose Urine UA NEGATIVE (NEGATIVE)
[2025-02-04 13:57] LABS: Cast Seen? NONE SEEN #/LPF (NONE SEEN); Crystals Seen? None Seen #/HPF (None Seen); Urine Culture Indicated YES-FRMC
--- NOTE | 2025-02-04 16:17 | PM.IMHP1 ---
Internal Medicine - H&P: HPI History of Present Illness Chief complaint: URETERAL COLIC Narrative: type 2 diabetes, GERD, atiral fibrillation, psoriatic arthritis, uterine cancer, COPD, lung mass, renal stones s/p multiple lithotripsy, was recently admitted and then discharged on 02/01/2025 for left renal colic with obstructive pathology, underwent a cystoscopy and left double J stent placement, here again with left lower quadrant abdominal pain, sharp and stabbing, continuous, nothing relieving it, no radiation, different in location than las time but similar in nature, a/w chills and nausea no vomiting no fever, no urinary symptoms except for hematuria with passing of clots at times. She came in as the pt became intolerable today. Here in the ED, pt was in runs of afib with tachypnea likely due to pain, later on improved but pain was still there when I saw her, she received morphine in the ED which did not seem to help. CBC did not show any leukocytosis and hemoglobin was stable, CMP did not show any NICHOLE. UA showed RBC, was positive for leukocyte esterase and did show some bacteria. CT abdomen pelvis without contrast showed left sided double J ureter stent identified with calculus along the left ureter stents . Hydronephrosis appears mildly reviewed. Also pt received 1 dose of ceftriaxone 1 gram. ED reached out to Dr. Jackson urologist who performed the procedure, who stated that pt does not warrant any urologic intervention and recommended admission under hospitalist service for pain control. Review of Systems ROS Status of ROS 10 or more systems reviewed and unremarkable except as noted in history and below [facility] Medical History (Updated 02/04/25 @ 16:08 by Stephon Tapia MD) S/P extracorporeal shock wave therapy ?Z98.890 - Other specified postprocedural states (ICD-10) Anemia ?D64.9 - Anemia, unspecified (ICD-10) COVID-19 ?U07.1 - COVID-19 (ICD-10) GERD (gastroesophageal reflux disease) ?K21.9 - Gastro-esophageal reflux disease without esophagitis (ICD-10) Diabetes ?E11.9 - Type 2 diabetes mellitus without complications (ICD-10) Atrial fibrillation ?I48.91 - Unspecified atrial fibrillation (ICD-10) Psoriatic arthritis ?L40.50 - Arthropathic psoriasis, unspecified (ICD-10) Uterine cancer ?C55 - Malignant neoplasm of uterus, part unspecified (ICD-10) COPD exacerbation (07/2023) ?J44.1 - Chronic obstructive pulmonary disease with (acute) exacerbation (ICD-10) RSV (respiratory syncytial virus infection) (07/2023) ?B33.8 - Other specified viral diseases (ICD-10) Lung mass ?R91.8 - Other nonspecific abnormal finding of lung field (ICD-10) Surgical History (Updated 08/13/23 @ 14:04 by Anitha Moctezuma NP) S/P cystoscopy ?Z98.890 - Other specified postprocedural states (ICD-10) H/O ureteroscopy ?Z98.890 - Other specified postprocedural states (ICD-10) S/P ureteral stent placement ?Z96.0 - Presence of urogenital implants (ICD-10) History of colonoscopy ?Z98.890 - Other specified postprocedural states (ICD-10) History of appendectomy ?Z90.49 - Acquired absence of other specified parts of digestive tract (ICD-10) History of tonsillectomy ?Z90.89 - Acquired absence of other organs (ICD-10) S/P cataract extraction and insertion of intraocular lens ?Z98.49 - Cataract extraction status, unspecified eye (ICD-10) ?Z96.1 - Presence of intraocular lens (ICD-10) History of lobectomy of lung ?Z90.2 - Acquired absence of lung [part of] (ICD-10) History of hysterectomy ?Z90.710 - Acquired absence of both cervix and uterus (ICD-10) Family History (Updated 08/13/23 @ 14:04 by Anitha Moctezuma NP) Other Family history of heart disease Family history of myocardial infarction Family history of stroke Social History (Updated 01/31/25 @ 14:35 by Cassia Schwab) Within the past year, how often did you have a drink containing alcohol: never Score interpretation: A score less than 3 is consistent with normal alcohol consumption. Smoking status: Former smoker Do you use any of these nicotine containing products: vaping products Non-prescribed substance use: denies use and cannabis (any form) Non-prescribed substance use details: THC use daily Previous occupational history: RETIRED Known occupational exposures/hazards: No Highest level of school completed/degree received: high school graduate Are you now , , , , never or living with a partner: In a typical week, how many times do you talk on the telephone with family, friends, or neighbors: 3 or more times per week How often do you get together with friends or relatives: 3 or more times per week How often do you attend baptist or spiritism services: never Do you belong to any clubs or organizations such as baptist groups unions, [employer] or athletic groups, or school groups: no Total score: 1 Score interpretation: A score of less than or equal to 1 indicates the most socially isolated. Little interest or pleasure in doing things: not at all Feeling down, depressed, or hopeless: not at all Feel stressed/tense/nervous/anxious/difficulty sleeping: not at all Due to disability, difficulty making decisions: No Do you think of yourself as: straight/heterosexual Gender Identity: female Meds Home Medications and Allergies Home Medications ?Medication ?Instructions ?Recorded ?Confirmed ?Type acarbose 100 mg tablet 100 mg PO TID 08/13/23 01/31/25 History acetaminophen 500 mg capsule 1,000 mg PO BID PRN pain 08/13/23 01/31/25 History albuterol sulfate 90 mcg/actuation 2 inh inhalation Q6H PRN shortness 08/13/23 01/31/25 History aerosol inhaler (Ventolin HFA) of breath or wheezing calcium citrate 200 mg PO TID 08/13/23 01/31/25 History cholecalciferol (vitamin D3) 125 5,000 unit PO DAILY 08/13/23 01/31/25 History mcg (5,000 unit) capsule esomeprazole magnesium 20 mg 20 mg PO DAILY 08/13/23 01/31/25 History tablet,delayed release golimumab 12.5 mg/mL intravenous IV 08/13/23 History solution (Simponi ARIA) iron bisglycinate chelate 30 mg PO DAILY 08/13/23 01/31/25 History mecobalamin (vitamin B12) 1,000 1,000 mcg PO DAILY 08/13/23 01/31/25 History mcg chewable tablet (B12 Active) metformin 1,000 mg tablet 1,000 mg PO BID 08/13/23 01/31/25 History methotrexate sodium 25 mg/mL 5 mg IM QWEEK 08/13/23 01/31/25 History injection solution warfarin 3 mg tablet 4 mg PO DAILY 08/13/23 01/31/25 History Held on 02/01/25. Instructions: Resume on 02/05/25. You had a stone removal by urology, Urology recommends you to hold on taking warfarin until 02/05/2025 prednisone 5 mg tablet 5 mg PO DAILY 01/31/25 01/31/25 History docusate sodium 100 mg capsule 100 mg PO BID PRN Constipation 10 02/01/25 Rx days #20 caps Allergies Allergy/AdvReac Type Severity Reaction Status Date / Time ciprofloxacin (From Cipro) Allergy Severe swelling Verified 02/04/25 12:37 Latex, Natural Rubber Allergy Severe Rash Verified 02/04/25 12:37 metronidazole (From Metrogel) Allergy Severe Rash Verified 02/04/25 12:37 NSAIDS (Non-Steroidal Allergy Severe Swelling Verified 02/04/25 12:37 Anti-Inflamma of Lip/Tongue/Throat Sulfa (Sulfonamide Allergy Severe Rash Verified 02/04/25 12:37 Antibiotics) ketorolac (From Toradol) AdvReac Severe Nausea Verified 02/04/25 12:37 pioglitazone (From Actos) AdvReac Severe Nausea Verified 02/04/25 12:37 Exam Narrative Exam Narrative: GENERAL: Uncomfortable in pain, not in acute distress, she is pleasant and cooperative NEURO: Alert and oriented. Moves all extremities. Face is symmetric and expressive EYES: PERRL. No scleral icterus or conjunctival injection HENT: Normocephalic, atraumatic. Hearing is grossly intact. Nares grossly patent and without discharge. Mucous membranes moist CARDIO: Rhythm regular. Normal rate. No murmur, rub, or gallop. Pulses equal bilaterally in the upper and lower extremity. No lower extremity edema PULM: Lungs clear to auscultation in all flynn. No wheezes, rales, or rhonchi. No conversational dyspnea. No splinting, stridor, or accessory muscle use GI/: Left lower quadrant tenderness, no CVA tenderness bilaterally, no guarding, no rebound tenderness EXTREMITIES: Symmetric muscle bulk. No joint swelling. No clubbing, cyanosis, or deformity Constitutional Vital Signs, click to edit/add: Last Vital Signs Temp 97.7 F 02/04/25 12:27 Pulse 74 02/04/25 16:10 Resp 22 H 02/04/25 16:10 BP 106/61 02/04/25 16:00 Pulse Ox 99 02/04/25 16:10 O2 Del Method Room Air 02/04/25 12:27 Internal Medicine - H&P: Reslt Labs Labs: Short CBC 02/04/25 Range/Units 12:42 WBC 9.1 (4.0-11.0) 10^3/uL Hgb 12.7 (12.0-16.0) g/dL Hct 37.7 (36.0-48.0) % Plt Count 307 (150-450) 10^3/uL BMP 02/04/25 12:42 Sodium 139 Potassium 3.3 L Chloride 102 Carbon Dioxide 28.6 BUN 15.0 Creatinine 0.91 Glucose 133 H Calcium 11.0 H Urine 02/04/25 Range/Units 13:19 Urine Color Lt. yellow (YELLOW) Urine Clarity Sl cloudy (CLEAR) Urine pH 8.0 (5.0-9.0) Ur Specific [place] 1.015 (1.005-1.025) Urine Protein 100 A (NEG/TRACE) mg/dL Urine Glucose (UA) Negative (NEGATIVE) mg/dL Assessment and Plan Assessment and Plan (1) Ureteral colic: (2) Hydronephrosis with ureteral calculus: (3) Kidney stone: Plan Intractable pain from Left Renal Colic, with recent stent placement for a ureteral stone Afib on warfarin, has been holding it for 5 days now, with hematuria and clots today -Urology stated no urologic intervention is warranted -Refer pt to observation status under hospitalist service -Start IV NS 100 ml/hr for a total of 1 liter -Start IV Dilaudid 1 mg q4 hours PRN for pain, Add Acetaminophen PO 1000 mg PO BID PRN and Oxycodone 5 mg [id number] PRN for breakthrough pain -Urology requested to be called if needed, no consult to be ordered for now -No evidence of UTI or NICHOLE, I think the UA findings are solely due to urinary tract recent instrumentation, I will add prophylactic ceftriaxone 1 gram q24 hours for additional 2 days with close follow up on her urine culture results -Will hold off the warfarin for another night and reassess in am. If pt continues to have hematuria will consider CBI -Assess CBC and CMP in am -Pt understands risks and benefits of holding warfarin, including a CVA, she understands and agrees with holding warfarin given her active hematuria -Full code -DVT PPx with SCDs -Home PO nexium for GI PPx
[2025-02-04] MEDS: METFORMIN HCL 500 MG TABLET 1000 MG PO (16:53)
[2025-02-04] MEDS: 0.9 % SODIUM CHLORIDE 1,000 ML 100 ML IV (16:53)
[2025-02-04] MEDS: HYDROMORPHONE HCL 1 MG/ML CARTRIDGE IV (18:07)
[2025-02-04] MEDS: PROCHLORPERAZINE 10 MG/2 ML VIAL 5 MG IV (21:08)
[2025-02-05] VITALS (8 sets, daily range): BP systolic 94–104; BP diastolic 55–64; PULSE 74–84; TEMP 36.6–37.2; O2SAT 94–98
[2025-02-05] MEDS: PANTOPRAZOLE SODIUM 40 MG TABLET.DR PO (05:42)
[2025-02-05 06:13] LABS: Hematocrit 30.7 % (36.0-48.0); Hemoglobin 10.0 g/dL (12.0-16.0); Immature Granulocytes Abs Auto 0.01 10^3/uL (0.00-0.03); Immature Granulocytes Pct Auto 0.2 % (0.0-0.5); Lymphocytes Absolute Auto 2.3 10^3/uL (1.2-3.8); Mean Corpuscular HGB Conc 32.6 g/dL (29.9-35.2); Mean Corpuscular Hemoglobin 31.0 pg (26.7-34.0); Mean Corpuscular Volume 95.0 fL (81.0-99.0); Platelet Count 252 10^3/uL (150-450); Red Blood Count 3.23 10^6/uL (4.20-5.40); White Blood Count 5.8 10^3/uL (4.0-11.0)
[2025-02-05 06:29] LABS: Alanine Aminotransferase 17 U/L (14-59); Albumin Globulin Ratio 1.1; Albumin Level 2.8 g/dL (3.4-5.0); Alkaline Phosphatase 32 U/L (46-116); Anion Gap 12.3; Aspartate Amino Transferase 11 U/L (15-37); Blood Urea Nitrogen 13.0 mg/dL (7.0-18.0); Calcium 7.9 mg/dL (8.5-10.1); Carbon Dioxide 27.3 mmol/L (21.0-32.0); Chloride 107 mmol/L (98-107); Estimated GFR (African America >60 (>=60 mL/min/1.73m^2); Estimated GFR (Non-African Ame >60 (>=60 mL/min/1.73m^2); Globulin 2.5 g/dL; Glucose 94 mg/dL (74-106); Magnesium 1.5 mg/dL (1.8-2.4); Potassium 3.6 mmol/L (3.5-5.1); Sodium 143 mmol/L (136-145); Total Protein 5.3 g/dL (6.4-8.2)
[2025-02-05] MEDS: PREDNISONE 5 MG TABLET PO (09:08)
[2025-02-05] MEDS: METFORMIN HCL 500 MG TABLET 1000 MG PO (09:08)
--- NOTE | 2025-02-05 09:39 | P.DS_ITS ---
DS: Providers Provider Date of admission: 02/04/25 16:25 Primary care physician: FAYE PEREZ Consults: 02/04/25 Consult to Dietitian Routine Reason for consultation: weight loss unintentionally Discharging clinician: Reinaldo Munson Anticipated date of discharge: 02/05/25 DS: Diagnosis Discharge Diagnosis (1) Ureteral colic: (2) Hydronephrosis with ureteral calculus: (3) Kidney stone: DS: Summary Hospital Course Hospital Course: This is a 79 y.o female with past medical hx of atrial fibrillation on warfarin, type 2 diabetes, GERD, atiral fibrillation, psoriatic arthritis, uterine cancer, COPD, lung mass, renal stones s/p multiple lithotripsy, was recently admitted and then discharged on 02/01/2025 for left renal colic with obstructive pathology, underwent a cystoscopy and left double J stent placement, here again with left lower quadrant abdominal pain, sharp and stabbing, continuous, nothing relieving it, no radiation, different in location than las time but similar in nature, a/w chills and nausea no vomiting no fever, no urinary symptoms except for hematuria with passing of clots at times. She came in as the pt became intolerable today. Here in the ED, pt was in runs of afib with tachypnea likely due to pain, later on improved but pain was still there when I saw her, she received morphine in the ED which did not seem to help. CBC did not show any leukocytosis and hemoglobin was stable, CMP did not show any NICHOLE. UA showed RBC, was positive for leukocyte esterase and did show some bacteria. CT abdomen pelvis without contrast showed left sided double J ureter stent identified with calculus along the left ureter stents . Hydronephrosis appears mildly reviewed. Also pt received 1 dose of ceftriaxone 1 gram. ED reached out to Dr. Jackson urologist who performed the procedure, who stated that pt does not warrant any urologic intervention and recommended admission under hospitalist service for pain control. Intractable pain from Left Renal Colic, with recent stent placement for a ureteral stone Afib on warfarin, has been holding it for 5 days now, with hematuria and clots today -Urology stated no urologic intervention is warranted -Refer pt to observation status under hospitalist service -Start IV NS 100 ml/hr for a total of 1 liter -Start IV Dilaudid 1 mg q4 hours PRN for pain, Add Acetaminophen PO 1000 mg PO BID PRN and Oxycodone 5 mg [id number] PRN for breakthrough pain -Urology requested to be called if needed, no consult to be ordered for now -No evidence of UTI or NICHOLE, I think the UA findings are solely due to urinary tract recent instrumentation, I will add prophylactic ceftriaxone 1 gram q24 hours for additional 2 days with close follow up on her urine culture results -Will hold off the warfarin for another night and reassess in am. If pt continues to have hematuria will consider CBI -Assess CBC and CMP in am -Pt understands risks and benefits of holding warfarin, including a CVA, she understands and agrees with holding warfarin given her active hematuria -Full code -DVT PPx with SCDs -Home PO nexium for GI PPx 02/05/2026 pt's pain is 2/10, did not use dilaudid since last night at 6 pm. No fever, chills, nausea, vomiting, no NICHOLE on today's labs. She is eager to go home today, she has an appointment with her PCP in 2 days, and will see Dr. Jackson on February 14 for lithotripsy. No urologic intervention was warranted on this admission as per urologist Dr. Jackson. She will be discharged on tylenol and oxycodone for 3 days supple until she sees her PCP. Also I discussed at length with her plan regarding warfarin, which she has been off for 5 days now, she continues to have hematuria and is concerned about that with hgb dropping to 10 from 13 at baseline prior to those admissions, will hold it after shared decision making was done with the pt and after she understood risks and benefits of anticoagulation vs stopping it including stroke vs continuing hematuria. She understands and is in agreement with warfarin until friday when she sees her PCP. She was asked to come back to the ED if the pain gets worse or if she develops fever, chills, nausea, vomiting, or she can't urinate. She was appreciative of our efforts. Status at Discharge Overall status at discharge: patient is back to baseline Time Spent with Patient Time attestation: Total time spent providing and/or coordinating discharge services: Exam Narrative Exam Narrative: GENERAL: Comfortable today not in pain, not in acute distress, she is pleasant and cooperative NEURO: Alert and oriented. Moves all extremities. Face is symmetric and expressive EYES: PERRL. No scleral icterus or conjunctival injection HENT: Normocephalic, atraumatic. Hearing is grossly intact. Nares grossly patent and without discharge. Mucous membranes moist CARDIO: Rhythm regular. Normal rate. No murmur, rub, or gallop. Pulses equal bilaterally in the upper and lower extremity. No lower extremity edema PULM: Lungs clear to auscultation in all fylnn. No wheezes, rales, or rhonchi. No conversational dyspnea. No splinting, stridor, or accessory muscle use GI/: Left lower quadrant tenderness improved compared to yesterday, no CVA tenderness bilaterally, no guarding, no rebound tenderness EXTREMITIES: Symmetric muscle bulk. No joint swelling. No clubbing, cyanosis, or deformity Constitutional Vital Signs, click to edit/add: Last Vital Signs Temp 98.8 F 02/05/25 09:00 Pulse 81 02/05/25 09:00 Resp 16 02/05/25 09:00 BP 101/63 02/05/25 09:00 Pulse Ox 98 02/05/25 09:00 O2 Del Method Room Air 02/05/25 09:00 O2 Flow Rate 2 02/05/25 00:00 DS: Data Data Completed and Pending Labs on day of discharge: Labs from last 24 hours 02/05/25 02/04/25 02/04/25 06:01 20:02 13:19 WBC 5.8 RBC 3.23 L Hgb 10.0 L Hct 30.7 L MCV 95.0 MCH 31.0 MCHC 32.6 RDW 14.5 Plt Count 252 MPV 8.9 L Neut % (Auto) 48.1 Lymph % (Auto) 40.0 Story % (Auto) 6.2 Eos % (Auto) 4.8 Baso % (Auto) 0.7 Neut # (Auto) 2.8 Lymph # (Auto) 2.3 Story # (Auto) 0.4 Eos # (Auto) 0.3 Baso # (Auto) 0.0 Abs Immat Gran (auto) 0.01 Imm/Tot Granulo (auto) 0.2 Sodium 143 Potassium 3.6 Chloride 107 Carbon Dioxide 27.3 Anion Gap 12.3 BUN 13.0 Creatinine 0.79 Est GFR ( Amer) >60 Est GFR (Non-Af Amer) >60 BUN/Creatinine Ratio 16.5 Glucose 94 Calcium 7.9 L Magnesium 1.5 L Total Bilirubin 0.5 AST 11 L ALT 17 Alkaline Phosphatase 32 L Total Protein 5.3 L Albumin 2.8 L Globulin 2.5 Albumin/Globulin Ratio 1.1 Urine Color Lt. yellow Urine Clarity Sl cloudy Urine pH 8.0 Ur Specific [place] 1.015 Urine Protein 100 A Urine Glucose (UA) Negative Urine Ketones 15 A Urine Occult Blood Large A Urine Nitrite Negative Urine Bilirubin Negative Urine Urobilinogen 0.2 Ur Leukocyte Esterase Large A Urine RBC 50-75 A Urine WBC 10-20 A Ur Squamous Epith Cells Rare Urine Crystals None seen Urine Bacteria Small A Urine Casts None seen Urine Mucus Small A Ur Culture Indicated? Yes-[facility] [place] POC Glucose 119 H 02/04/25 12:42 WBC 9.1 RBC 4.05 L Hgb 12.7 Hct 37.7 MCV 93.1 MCH 31.4 MCHC 33.7 RDW 14.4 Plt Count 307 MPV 9.0 L Neut % (Auto) 73.8 Lymph % (Auto) 18.1 L Story % (Auto) 6.8 Eos % (Auto) 0.7 L Baso % (Auto) 0.3 Neut # (Auto) 6.7 H Lymph # (Auto) 1.7 Story # (Auto) 0.6 Eos # (Auto) 0.1 Baso # (Auto) 0.0 Abs Immat Gran (auto) 0.03 Imm/Tot Granulo (auto) 0.3 Sodium 139 Potassium 3.3 L Chloride 102 Carbon Dioxide 28.6 Anion Gap 11.7 BUN 15.0 Creatinine 0.91 Est GFR ( Amer) >60 Est GFR (Non-Af Amer) 60 BUN/Creatinine Ratio 16.5 Glucose 133 H Calcium 11.0 H Magnesium Total Bilirubin AST ALT Alkaline Phosphatase Total Protein Albumin Globulin Albumin/Globulin Ratio Urine Color Urine Clarity Urine pH Ur Specific [place] Urine Protein Urine Glucose (UA) Urine Ketones Urine Occult Blood Urine Nitrite Urine Bilirubin Urine Urobilinogen Ur Leukocyte Esterase Urine RBC Urine WBC Ur Squamous Epith Cells Urine Crystals Urine Bacteria Urine Casts Urine Mucus Ur Culture Indicated? POC Glucose Preliminary micro results at discharge 02/04/25 13:19 Urine Culture - Preliminary Urine,Clean Catch Pending - Specimen sent to [facility] Discharge Plan Discharge Disposition: Home Health Service Condition: Good Discharge Medications: New oxycodone 5 mg Tablet 5 mg PO Q8H PRN (Reason: MODERATE Pain) 3 Days Qty: 9 0RF Continued albuterol sulfate [Ventolin HFA] 90 mcg/actuation HFA aerosol inhaler 2 inh INHALATION Q6H PRN (Reason: shortness of breath or wheezing) metformin 1,000 mg tablet 1,000 mg PO BID acarbose 100 mg tablet 100 mg PO TID methotrexate sodium 25 mg/mL solution 5 mg IM QWEEK iron bisglycinate chelate 28 mg iron capsule 30 mg PO DAILY mecobalamin (vitamin B12) [B12 Active] 1,000 mcg tablet,chewable 1,000 mcg PO DAILY esomeprazole magnesium 20 mg tablet,delayed release (DR/EC) 20 mg PO DAILY prednisone 5 mg tablet 5 mg PO DAILY docusate sodium 100 mg Capsule 100 mg PO BID PRN (Reason: Constipation) 10 Days Qty: 20 0RF Changed acetaminophen 500 mg capsule 1,000 mg PO Q8H PRN (Reason: pain) Qty: 0 0RF Held warfarin 3 mg tablet 4 mg PO DAILY Hold Instructions: Hold until you see your PCP on 02/08/2025 calcium citrate 200 mg (950 mg) tablet 200 mg PO TID Hold Instructions: hold until you see your PCP cholecalciferol (vitamin D3) 125 mcg (5,000 unit) capsule 5,000 unit PO DAILY Hold Instructions: hold until you see your PCP Simponi ARIA 12.5 mg/mL solution IV Hold Instructions: hold until you see your PCP Print Language: Turkmen Activity Restrictions/Additional Instructions: Stay hydrated You are seeing your primary care doctor on Friday, you are still off of warfarin due to blood in your urine Please come back to the ED if your pain gets worse, if you develop fever, chills, nausea, vomiting, or trouble urinating Forms: Portal Instructions
[2025-02-05] MEDS: MAGNESIUM SULFATE IN WATER 2 GM/50 ML PREMIX IV (10:46)
--- NOTE | 2025-02-07 09:50 | CM.NOTE ---
Final urine culture report given to Dr. Munson, no home antibiotics and no orders at this time.
--- NOTE | 2025-02-07 13:12 | CM.DCFOLLOWU ---
Person spoke with: patient How are you feeling? not well, still having pain and blood in urine How is your pain? having pain Did you understand your discharge instructions? yes Do you have any questions about your discharge instructions? no Were you given any prescriptions at discharge? yes Were you able to get your prescriptions filled? yes Do you understand how to take your medications as ordered? yes Do you have any questions about your follow up appointment and do you plan to keep your follow up appointment? no questions, will follow up Is there anything else that you would like to discuss? no Questions/Comments/Concerns/Other: none
== END 2025-02-05 12:09 | disposition home health service (06) ==
LOC: ER 16:08 → MS 16:32
PROVIDERS: Admitting Provider Student in an Organized Health Care Education/Training Program; Emergency Provider Emergency Medicine; PCP Family Medicine; Visit Provider Student in an Organized Health Care Education/Training Program
DX: N13.2 Hydronephrosis with renal and ureteral calculous obstruction (principal); I48.91 Unspecified atrial fibrillation; Z79.01 Long term (current) use of anticoagulants; E11.9 Type 2 diabetes mellitus without complications; K21.9 Gastro-esophageal reflux disease without esophagitis; L40.50 Arthropathic psoriasis, unspecified; Z85.42 Personal history of malignant neoplasm of other parts of uterus; Z87.442 Personal history of urinary calculi; R10.32 Left lower quadrant pain; R31.9 Hematuria, unspecified; Z90.710 Acquired absence of both cervix and uterus; Z90.2 Acquired absence of lung [part of]; Z90.49 Acquired absence of other specified parts of digestive tract; Z79.84 Long term (current) use of oral hypoglycemic drugs; Z98.890 Other specified postprocedural states
CPT/HCPCS: 36415; 74176; 80048; 80053; 81001; 83735; 85025; 87086; 87088; 87186; 93005; 96365; 96367; 96375; 96376; 99285; G0378; J0696; J0780; J1171; J2270; J2405; J3475; J7512

== ENCOUNTER 2025-03-08 11:14 | Outpatient (OUT) | payer MEDICARE, SELFPAY ==
--- OUTSIDE RECORDS SUMMARY | 2025-03-08 11:23 | XMS_ITS | CCD ---
Author Organization [facility] Care Team Providers Care Momd Teacher Name Role Phone Astrid Baker Unavailable CAYETANO, [...] DR MCKINNEY Consulting Unavailable HEMEYER ., DR MCKINNYE Attending Unavailable HEMEYER ., DR MCKINNEY Admitting [...] able MD Jayme Perez Primary Care Provider [phone] MD Eugenia Shepherd Attending Provider Lou Glover Unavailable Jayme Perez MD Primary Care Provider Jayme Perez MD Unavailable MD Jayme Perez Primary Care Provider MD Radames Monteiro Attending Provider [phone] Felicia Farmer DO Unavailable Renato Santacruz MD Unavailable Radames Monteiro MD Unavailable Jayme Perez MD Primary Care Provider Jayme Perez MD Unavailable [phone] Jayme Perez MD Primary Care Provider Jayme Perez MD Unavailable Lobito Tapia DO Attending Provider [phone] FELICIA FARMER Attending Unavailable JAYME PEREZ Attending Unavailable CHRIS, JAYME Hazel Attending Unavailable HEMEYER, JAYME Hazel Attending Unavailable JOSELYN NARVAEZ Attending Unavailable HEMERONI, JAYME Hazel Referring Unavailable CLARA WHITTEN Attending Unavailable HEMERONI, JAYME Hazel Referring Unavailable HEMEYER, JAYME Hazel Attending Unavailable CLARA WHITTEN Attending Unavailable HEMEYER, JAYME Hazel Referring Unavailable CLARA WHITTEN Attending Unavailable HEMEYER, EDWARD J Referring Unavailable JAYME PEREZ Attending Unavailable JAYME PEREZ Referring Unavailable JAYME PEREZ Attending Unavailable Jayme Perez MD Primary Care Provider Kristie Meyer Attending Provider Eugenia Shepherd MD Attending Provider [phone] Eugenia SHEPHERD Attending Unavailable Eugenia SHEPHERD Referring Unavailable Eugenia SHEPHERD Attending Unavailable Eugenia SHEPHERD Attending Unavailable Lobito Tapia Admitting Unavailable Lobito Tapia Attending Unavailable Jayme Perez Primary Care Unavailable Radames Monteiro Admitting Unavailable Radames Monteiro Attending Unavailable Kristie Hermosillo Attending Unavailable Jayme Perez Primary Care Unavailable Kristie Hermosillo Admitting Unavailable Jayme Perez Primary Care Unavailable Eugenia Shepherd Admitting Unavailable Eugenia Shepherd Attending Unavailable Allergies Allergy Classification Reported Allergen(s) Allergy Type Date of Onset Reaction(s) Facility (20 sources) Ciprofloxacin; Translations: [ciprofloxacin] Drug Allergy 02-19-20 22 anaphylaxis, Unknown (qualifier value) [facility] (1 source) sulfaSALAzine Drug Allergy rash [facility] Other (1 source) Ciprofloxacin Drug Allergy 03-30-20 13 [facility] Repository (2 sources) Ketorolac; Translations: [Toradol] Drug Allergy 03-30-20 13 [facility] Rep[facility] (2 sources) metroNIDAZOLE; Translations: [MetroGel] Drug Allergy 03-30-20 13 [facility] (1 source) NSAIDs Drug allergy (disorder) 03-30-20 13 [facility] (2 sources) pioglitazone; Translations: [Actos] Drug Allergy 03-30-20 13 [facility] (1 source) Sulfonamides (Antibiotic) Drug allergy (disorder) 03-30-20 13 [facility] (16 sources) Ketorolac; Translations: [ketorolac] Drug Allergy 03-26-20 23 Unknown (qualifier value), Nausea (finding) [facility] Comment on above: Severe (20 sources) Latex; Translations: [Latex] Drug allergy 01-07-20 Blister of skin AND/OR mucosa (finding) [facility] (20 sources) Non-steroidal anti-inflammatory agent; Translations: [NSAIDs] Drug allergy 02-19-20 Unknown (qualifier value) [facility] (20 sources) pioglitazone; Translations: [pioglitazone] Drug Allergy 01-07-20 Unknown (qualifier value) [facility] (6 sources) Sulfonamides (Antibiotic); Translations: [sulfa drugs] Drug allergy Unknown (qualifier value) [facility] (20 sources) metroNIDAZOLE; Translations: [Metronidazole] Drug Allergy 02-19-20 Redness of Skin [facility] (6 sources) Sulfonamides (Antibiotic); Translations: [Sulfa (Sulfonamide Antibiotics)] Allergy to substance 03-26-20 Rash [facility] (6 sources) NSAIDS (Non-Steroidal Anti-Inflamma; Translations: [NSAIDS (Non-Steroidal Anti-Inflamma] Allergy to substance 03-26-20 Anaphylaxis, Anaphylaxis, rash [facility] (1 source) Non-steroidal anti-inflammatory agent Drug allergy [facility] [employer] Other (20 sources) Substance with sulfonamide structure and antibacterial mechanism of action (substance) Drug allergy 02-19-20 [facility] [employer] Other (20 sources) Ketorolac Allergy to substance 01-07-20 Nausea Only [facility] (20 sources) Hydrocodone Bit-Homatrop Mbr Propensity to adverse reactions 08-07-19 Dizziness [facility] (20 sources) Medical Adhesive Remover Drug Allergy 02-19-20 [facility] (1 source) Ciprofloxacin Drug Allergy 02-15-20 [facility] Repository (1 source) Ketorolac Drug Allergy 02-15-20 [facility] (1 source) pioglitazone Drug Allergy 02-15-20 [facility] Repository Medications Current Medications Medication Drug Class(es) Dates Sig (Normalized) Sig (Original) acarbose 100 mg oral tablet (20 sources) alpha-Glucosidase Inhibitor Start: 08-17-2019 End: 04-16-2025 acarbose (Precose) 100 MG tablet Indications: Type 2 diabetes mellitus with stage 3a chronic kidney disease, without long-term current use of insulin (HCC) Take 1 tablet (100 mg) by mouth in the morning and 1 tablet (100 mg) at noon and 1 tablet (100 mg) in the evening. Take with meals. 270 tablet 1 10/18/2024 04/16/2025 Active Start: 08-17-2019 acarbose Oral, TID, Refills(s) 0 Start Date: 08/17/19 Status: Ordered Acarbose Active acetaminophen 325 mg oral ta blet (20 sources) Start: 03-26-2023 Acetaminophen (Tylenol) 325 mg Tablet Active 1000 MG PO Twice daily March 26, 2023 12:00am Complies with drug therapy Start: 02-03-2023 take 1 mg by mouth [...] Refill(s) 0 Start Date: 08/13/23 Status: Ordered [id number] 200 actuat albuterol 0.09 mg/actuat metered dose [...] May, Not-Taking/PRN Ascorbic Acid / Zinc Sulfate (4 sources) Vitamin C Start: 03-26-2023 take 1 tablet by mouth once daily Ascorbic Acid-Zinc Sulfate (Vitamin C Plus Zinc) 200-100 mg Tablet Active 1 TAB PO every day at noon March 26, 2023 12:00am Complies with drug therapy Start: 03-26-2023 take 1 tablet by valdo th once daily Start: 03-26-2023 take 1 tablet by valdo th once daily Ascorbic Acid-Zinc Sulfate (Vitamin C [...] oral tablet (20 sources) Start: 03-26-2023 take 1 tablet by mouth three times daily Calcium Citrate 200 mg (950 mg) Tablet Active 200 MG PO Three times daily March 26, 2023 12:00am Complies with drug therapy Start: 08-17-2019 take 250 mg by mouth [...] day. Active cephalexin 500 mg oral capsule (9 sources) Cephalosporin Antibacterial Start: 02-14-2025 take 1 capsule by mouth twice daily Start: 08-12-2023 End: 04-15-2024 take 1 capsule by mouth in the morning, then take 1 capsule by mouth in the evening, then take 1 capsule by mouth at bedtime cephalexin (Keflex) 500 MG capsule Take 500 mg by mouth in the morning and 500 mg in the evening and 500 mg before bedtime. 08/12/2023 04/15/2024 Discontinued (Therapy completed) cholecalciferol 0.125 mg oral tablet (5 sources) Vitamin D Start: 03-26-2023 take 1 tablet by mouth once daily cinnamon bark 500 mg oral capsule (20 sources) Start: 03-26-2023 take 1 capsule by mouth twice daily Cinnamon Bark (Cinnamon) 500 mg Capsule Active 1000 MG PO Twice daily March 26, 2023 12:00am Complies with drug therapy Cinnamon Preparation (5 sources) Non-Standardized Food Allergenic Extract Start: 09-19-2020 take 1000 mg by mouth once daily cinnamon 1,000 mg, Oral, Daily Start Date: 09/19/20 Status: Ordered Start: 09-19-2020 take 1 mg by mouth twice daily cinnamon mg, Oral, BID Start Date: 09/19/20 Status: Ordered Cyanocobalamin-Liver Extract (Vitamin F21-Emzbd) Tablet (5 sources) Start: 03-26-2023 take 1 tablet by mouth once daily Cyanocobalamin-Liver Extract (Vitamin A08-Ulsjy) Tablet Active 1 TAB PO every day at noon March 26, 2023 12:00am Complies with drug therapy Start: 03-26-2023 take 1 tablet by valdo th once daily Start: 03-26-2023 take 1 tablet by valdo th once daily Cyanocobalamin-Liver Extract (Vitamin E82-Gqznp) Tablet Active 1 TAB PO every day at noon March 26, 2023 12:00am Start: 03-26-2023 take 1 tablet by valdo th once daily Cyanocobalamin-Liver Extract (Vitamin L72-Vxsin) Tablet Active 1 TAB PO every day at noon March 25, 2023 11:00pm dextromethorphan hydrobromide 1.5 mg/ml / pyrilamine maleate 1.5 mg/ml oral solution (1 source) Uncompetitive U-hghkuq-Z-aspartate Receptor Antagonist, Sigma-1 Agonist Start: 07-25-2023 take 10 mL by mouth every eight hours [place] DM 7.5-7.5 MG/5ML 10 mL Orally every 8 hours for 5 days Jul, Active docusate sodium 100 mg oral capsule (3 sources) take 1 capsule by mouth in the morning docusate sodium (Colace) 100 MG capsule Take 100 mg by mouth in the morning and 100 mg before bedtime. Active esomeprazole 20 mg delayed release oral tablet (20 sources) Proton Pump Inhibitor Start: 03-26-2023 take 1 tablet by mouth once daily Esomeprazole Magnesium 20 mg Tablet,Delayed Release (Dr/Ec) Active 20 MG PO every day at noon March 26, 2023 12:00am Complies with drug therapy Start: 08-17-2019 Nexium 20 mg, Oral, As Directed, Refills(s) 0 Start Date: 08/17/19 Status: Ordered Start: 08-17-2019 Nexium Oral, D aily, Refills(s) 0 Start Date: 08/17/19 Status: Ordered take 1 capsule by [facility] once daily esomeprazole (NexIUM) [address] capsule Take 20 mg by mouth 1 (one) time each day. 1 capsule orally once a day Active Ferrous Bisglycinate Chelate 28 MG capsule (4 sources) Start: 11-04-2024 End: 12-04-2024 take 1 capsule by mouth at mealtime Ferrous Bisglycinate Chelate 28 MG capsule Indications: Iron deficiency Take 1 capsule by mouth in the evening. Take with meals 11/04/2024 12/04/2024 Active ferrous sulfate 134 mg oral tablet (5 sources) Start: 03-26-2023 Ferrous Sulfat e 27 mg iron Tablet Active 30 MG PO every Friday, , Friday, and Sunday March 26, 2023 12:00am Complies with drug therapy Start: 03-26-2023 take 30 mg by mouth once Phuc us Sulfate Active 30 MG PO every Friday, , Friday, and Sunday March 26, 2023 12:00am 4 ml golimumab 12.5 mg/ml injection (20 sources) Tumor Necrosis Factor Sergey Start: 03-26-2023 Golimumab (Simponi Aria) 12.5 mg/mL Solution Active 12.5 MG IV EVERY 8 WEEKS March 26, 2023 12:00am may 13 Complies with drug therapy Start: 08-20-2019 Simponi Aria m g/kg, IV, q4wk, Refills(s) 0 Start Date: 08/20/19 Status: Ordered golimumab (Simpo ni) 100 MG/ML solution auto-injector Inject 100 mg under the skin every 8 (eight) weeks Active Insulin Glargine (2 sources) Insulin Analog Lantus Active levoFLOXacin 250 mg oral tablet (6 sources) Quinolone Antimicrobial Start: 02-08-2025 End: 02-18-2025 take 1 tablet by mouth once daily levoFLOXacin (Levaquin) 250 MG tablet Indications: Kidney stone on left side Take 1 tablet (250 mg) by mouth Daily for 10 days 10 tablet 02/08/2025 02/18/2025 Active meclizine hydrochloride 12.5 mg oral tablet (20 sources) Antiemetic Start: 12-22-2024 End: 02-17-2025 take 0.5-1 tablets by mouth three times daily as needed for dizziness meclizine (Antivert) 12.5 MG tablet Indications: Vertigo Take 0.5-1 tablets (6.25-12.5 mg) by mouth 3 (three) times a day as needed for dizziness for up to 20 days 60 tablet 12/22/2024 02/17/2025 Discontinued (Med list cleanup) metFORMIN hydrochloride 1000 mg oral tablet (20 sources) Biguanide Start: 08-17-2019 End: 04-16-2025 take 1 tablet by mouth in the morning metFORMIN (Glucophage) 1000 MG tablet Indications: Type 2 diabetes mellitus with stage 3a chronic kidney disease, without long-term current use of insulin (HCC) Take 1 tablet (1,000 mg) by mouth in the morning and 1 tablet (1,000 mg) in the evening. Take with meals. 180 tablet 1 10/18/2024 04/16/2025 Active Start: 08-17-2019 metformin Oral , Refills(s) 0 Start Date: 08/17/19 Status: Ordered metFORMIN HCl Ac tive methotrexate 2.5 mg/ml oral solution (20 sources) Folate Analog Metabolic Inhibitor Start: 03-26-2023 take 1.5 mg by mouth every week Methotrexate 2.5 mg/mL Solution Active 1.5 MG PO every week March 26, 2023 12:00am Friday's Complies with drug therapy Start: 03-26-2023 take 1.5 mg by mouth every wee k Methotrexate Active 1.5 MG PO every week March 26, 2023 12:00am Start: 08-17-2019 take 5 mg by mouth every week methotrexate 5 mg, Oral, qWeek, Refills(s) 0 Start Date: 08/17/19 Status: Ordered Start: 08-17-2019 methotrexate R efills(s) 0 Start Date: 08/17/19 Status: Ordered inject 0.5 mL by sub cutaneous injection every week Methotrexate 12.5 MG/0.5ML solution prefilled syringe Inject 0.5 mL under the skin 1 (one) time per week Active Methotrexate Sod ium Active Misc Medication (5 sources) Start: 09-19-2020 Misc Medicatio n See [...] Date: 09/19/20 Status: Ordered ondansetron 4 mg disintegrating oral tablet (13 sources) Serotonin-3 Receptor Antagonist Start: 02-08-2025 End: 02-18-2025 take 1 tablet by mouth every eight hours for nausea ondansetron ODT (Zofran-ODT) 4 MG disintegrating tablet Indications: Kidney stone on left side Take 1 tablet (4 mg) by mouth every 8 (eight) hours if needed for nausea or vomiting for up to 10 days 30 tablet 02/08/2025 02/18/2025 Active Start: 08-13-2023 ondansetron 4 mg Tab mg tab(s), Oral, As Directed, Refills(s) 0 Start Date: 08/13/23 Status: Ordered Start: 08-12-2023 End: 04-15-2024 take 1 tablet by mouth every eight hours as needed for nausea ondansetron ODT (Zofran-ODT) 4 MG disintegrating tablet Take 4 mg by mouth every 8 (eight) hours if needed for nausea 08/12/2023 04/15/2024 Discontinued (Therapy completed) oxybutynin chloride 5 mg oral tablet (3 sources) Cholinergic Muscarinic Antagonist oxybutynin (Ditropan) 5 MG tablet Take 5 mg by mouth as needed in the morning and 5 mg as needed at noon and 5 mg as needed in the evening (bladder spasms). Active oxyCODONE hydrochloride 5 mg oral capsule (5 sources) Opioid Agonist Start: 5 End: 5 take 1 capsule by mouth every eight hours oxyCODONE (Oxy-IR) 5 MG immediate release capsule Indications: Kidney stone on left side Take 1 capsule (5 mg) by mouth every 8 (eight) hours for 7 days 21 capsule 02/08/2025 02/15/2025 Active predniSONE 2.5 mg oral tablet (20 sources) Start: 3 take 1 tablet by mouth once daily at bedtime Prednisone 2.5 mg Tablet Active 2.5 MG PO Daily at bedtime March 26, 2023 12:00am Complies with drug therapy Start: 08-17-2019 take 5 mg by mouth once daily predniSONE 5 mg, Oral, Daily, Refills(s) 0 Start Date: 08/17/19 Status: Ordered Start: 08-17-2019 predniSONE Ora l, Daily, Refills(s) 0 Start Date: 08/17/19 Status: Ordered take 2.5 mg by mouth once daily predniSONE (Deltasone) 5 MG tablet Take 2.5 mg by mouth Daily Active predniSONE Not-T aking/PRN Spacer/Aero-Holding Chambers [facility] Start: 07-16-2023 Spacer/Aero-Ho lding Chambers (BreatheRite Leonor Spacer Adult) [facility] Indications: Chronic obstructive pulmonary disease with acute exacerbation (HCC) 2 puffs 4 (four) times a day as needed (sob and cough) 1 each 07/16/2023 Active Start: 07-16-2023 Spacer/Aero-Ho lding Chambers (BreatheRite Leonor Spacer Adult) [facility] Indications: Chronic obstructive pulmonary disease with acute exacerbation (CMS/HCC) 2 puffs 4 (four) times a day as needed (sob and cough) 1 each 07/16/2023 Active Start: 07-16-2023 Spacer/Aero-Ho lding Chambers ([facility] Leon[facility] Spacer [facility] Indications: Chronic obstructive pulmonary disease with acute exacerbation (CMS/HCC) 2 puffs 4 (four) times a day as needed (sob and cough) 1 each 0 07/16/2023 Active spironolactone 25 mg oral tablet (9 sources) Aldosterone Antagonist Start: 01-06-2025 End: 02-17-2025 take 1 tablet by mouth once daily spironolactone (Aldactone) 25 MG tablet Indications: Vertigo Take 1 tablet (25 mg) by mouth Daily for 10 days 10 tablet 01/06/2025 02/17/2025 Discontinued (Med list cleanup) tamsulosin hydrochloride 0.4 mg oral capsule (20 sources) alpha-Adrenergic Sergey Start: 08-13-2023 End: 08-20-2023 take 1 mg by mouth once daily tamsulosin 0.4 mg Cap mg cap(s), Oral, Daily, X 7 day(s), Refills(s) 0 Start Date: 08/13/23 Stop Date: 08/20/23 Status: Ordered Start: 08-12-2023 End: 11-04-2024 take 1 capsule by mouth every twenty-four hours in the morning tamsulosin (Flomax) 0.4 MG 24 hr capsule Take 0.4 mg by mouth in the morning. 08/12/2023 11/04/2024 Discontinued (Med list cleanup) traZODone hydrochloride 50 mg oral tablet (20 sources) Serotonin Reuptake Inhibitor Start: 04-15-2024 traZODone [...] tablet (20 sources) Vitamin K Antagonist Start: 11-24-2024 take 1 tablet by mouth at bedtime warfarin (Coumadin) 4 MG tablet Indications: 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 (HCC) Take 1 tablet (4 mg) by mouth at bedtime 11/24/2024 Active Start: 08-18-2023 End: 08-17-2024 warfarin (Coumadin) [...] take 1 tablet by mouth once daily at bedtime Warfarin 4 mg Tablet Active 4 MG PO Daily at bedtime March 26, 2023 12:00am Complies with drug therapy Zinc Sulfate-Vitamin C (Vitamin C Plus Zinc) [...] 4 MG as directed Orally for 6 12 Jul, 2023 Active Problems Active Problems Problem Classification Problem Date Documented Da te Episodic/Chronic Abdominal pain (9 sources) Abdominal pain; Translations: [Unspecified abdominal pain] Onset: 4 09-21-2019 Episodic Administrative/social admission (2 sources) Advance directive discussed with patient; Translations: [Other specified counseling] 10-27-2024 Episodic Anxiety disorders (5 sources) Anxiety 08-17-2019 Chronic Calculus of urinary tract (18 sources) Kidney stone; Translations: [Calculus of kidney] [...] disease (HCC) (CMS/HCC)] Onset: 3 07-30-2023 Chronic Conditions associated with dizziness or vertigo (10 sources) Vertigo; Translations: [Dizziness and giddiness] 12-23-2024 Episodic Congestive heart failure; nonhypertensive (20 sources) Chronic [...] 3 12-12-2022 Chronic Other aftercare (1 source) 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; Translations: [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 CURRNT USE ANTICOAGULANTS] Onset: 3 Episodic Other aftercare (5 sources) Encounter for therapeutic drug level monitoring; Translations: [ENC THERAPEUTC DRUG LEVL MONITORING] Onset: 3 Episodic Other aftercare (1 source) Other snf (current) drug therapy; Translations: [OTH 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 CURRENT DRUG THERAPY] Onset: 3 Episodic Other aftercare (2 sources) Post-discharge follow-up; Translations: [Encounter for follow-up examination after completed treatment for conditions other than malignant neoplasm] 02-17-2025 Episodic Other and ill-defined heart disease (4 sources) Cardiomegaly; Translations: [CARDIOMEGALY] Onset: 3 Chronic Other and ill-defined heart disease (20 sources) Ventricular hypertrophy ; Translations: [Cardiomegaly] Onset: 3 12-12-2022 Chronic Other diseases of kidney and ureters (2 sources) Urinary tract obstruction; Translations: [Hydronephrosis with renal and ureteral calculous obstruction] Onset: 4 Episodic Other diseases of kidney and ureters (1 source) Hydronephrosis with renal and ureteral calculous obstruction; Translations: [Hydronephrosis with renal and ureteral calculous obstruction] Onset: 5 Episodic Other endocrine disorders (1 source) Disorder [...] ; Translations: [Abnormal weight loss] 04-19-2024 Episodic Other screening for suspected conditions (not mental disorders or infectious disease) (6 sources) Patient encounter status; Translations: [Encounter for screening for other disorder] 10-27-2024 Episodic Residual codes; unclassified (2 sources) Sleep [...] 08-20-2019 Unclassified (3 sources) Obstructive hydronephrosis 08-13-2023 Unclassified (1 source) I did send a prescription to your pharmacy for an antibiotic. The plan to be for a 6-month follow-up with a repeat abdominal x-ray. You may resume your blood thinners within a couple days. Have a great day. Unclassified (1 source) Fluids to keep the urine clear. I was able to get up into the ureter, laser and remove the remaining stone fragments. I did not replace the stent. Sometimes you can have some mild left flank pain for 24 to 36 hours simply due to the manipulation of going up into the ureter. 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 Glucose of more than 200 mg/dL in a nonstressed, ambulatory subject supports the diagnosis of Diabetes Mellitus. Result Comment: [place] Glucose Reference Range is dependent on time and content of last meal. Glucose of more than 200 mg/dL in a nonstressed, ambulatory subject supports the diagnosis of Diabetes Mellitus. Performed By: #### G ROYCE #### Point of Care testing , Glucose Poct Glucometerson 0 02-14-2025 Commemt1 Glu2: Cleaned Meter Normal [facility] Comment on above: Result Comment: PERF ORMED BY: [place] [address] PATHOLOGIST GENERAL EDUCATION INSTRUCTOR IZABEL CHI M.D. Performed By: #### G ROYCE #### Point of Care testing , INR in Platelet poor plasma by Coagulation assayOrdered By: BLANCA SIM on 02-14-2025 INR Coag (PPP) [Relative time] 1.0 {INR} Normal [facility] Comment on above: INR Therapeutic Rang [...] with mechanical heart valves: 3 - 4.5 Result Comment: INR Therapeutic Range A) Pre- [...] 3 - 4.5 Performed By: #### P TT, PT #### [facility] [address] 02-14-2025 L ----- Specimen: [id number] Received: 02/14/25 Status: JET Cruz Num: [id number] Spec Type: Surgical Subm Dr: Eugenia Shepherd MD Tissues: A Gross Only (LEFT URETER STONE) Procedures: Level 1 Gross Age/ Patient Sex Location Account Attending Physician Wilda Sen 79/F [place] [id number] Eugenia Shepherd MD SPEC NUM: [id number] RECD: 02/14/25 STATUS: JET RESENDIZBabita NUM: [id number] LEONOR: 02/14/25-[address]: Eugenia Shepherd MD ENTERED: 02/14/[address]: SPEC TYPE: Surgical DEPT: S ENTERED BY: [id number] RECV BY: [id number] ORDERED: Level 1 Gross ORDERED: Level 1 Gross Pathological Diagnosis Left ureteral stone, removal: - Fragments of calculus. Clinical Information Left kidney stones Gross Description Received fresh labeled with the patients name, date of , and left ureter stone are six escobedo-chaudhry, granular, 0.1 to 0.3 cm in greatest dimension calculi. The specimen is sent to [facility] for chemical analysis. GROSS ONLY- Microscopic Description Gross examination only. CPT Codes 20882 Specimen: [id number] Received: 02/14/25 Status: JET Cruz Num: [id number] Spec Type: Surgical Subm Dr: Eugenia Shepherd MD Tissues: A Gross Only (LEFT URETER STONE) Procedures: Level 1 Gross Patient: NataliiaWilda [id number] (Continued) Signed (signature on file) Mikel Quiros MD 02/15/25 1034 Normal [facility] [facility] No Panel InformationOrdered By: Eugenia Shepherd on 02-14-2025 Bedside Glucose Comment Glu2: cleaned meter [facility] Partial Thromboplastin Timeo n 02-14-2025 aPTT Coag (Bld) [Time] 26.6 s Normal 25.1-36.5 Th e [facility] Comment on above: Result Comment: A he matocrit value greater than 55% may lead to inaccurate results in coagulation testing. Patients having hematocrit values >55% require a special collection tube for coagulation studies. Please contact the laboratory at [phone] for redraw instructions. PERFORMED BY: [place] [address] PATHOLOGIST GENERAL EDUCATION INSTRUCTOR IZABEL CHI M.D. Performed By: #### P TT, PT #### [facility] [address] [place] [id number] [facility] Prothrombin time (PT)Ordered By: BLANCA SIM on 02-14-2025 PT Coag (PPP) [Time] 11.6 s Normal 9.0-12.9 [facility] Comment on above: A hematocrit value g reater than 55% may lead to inaccurate results in coagulation testing. Patients having hematocrit values >55% require a special collection tube for coagulation studies. Please contact the laboratory at [phone] for redraw instructions. Result Comment: A he matocrit value greater than 55% may lead to inaccurate results in coagulation testing. Patients having hematocrit values >55% require a special collection tube for coagulation studies. Please contact the laboratory at [phone] for redraw instructions. Performed By: #### P TT, PT #### [facility] [address] [place] [id number] [facility] X-ray reportOrdered By: Mj Zhou on 02-14-2025 Study report [facility] [place] [address] [place] [address] XRay Report Signed Patient: Wilda Sen MR#: [id number] : 1945 Acct:[id number] Age/Sex: 79 / F ADM Date: 5 Loc: [facility] Room: Type: [facility] Attending Dr: Eugenia Shepherd MD Copies to: Eugenia Shepherd MD~ Ordering Provider: Eugenia Shepherd MD Date of Service: 02/14/25 XR/XR KUB: Ureteral Stone, Kidney stone KUB: CLINICAL INFORMATION: Preop lithotripsy left side. COMPARISON: KUB 03/12/2016. FINDINGS: Double-J left-sided ureteral stent is in place. Multiple presumed left renal calculi are present largest measuring 5 mm. No definitive calculus is seen along the course of the stent. Phleboliths are seen within the pelvis. No bowel obstruction or free air. Osseous structures demonstrate degenerative change. XR/XR KUB IMPRESSION: LEFT RENAL CALCULI LARGEST MEASURING 5 MM. Impression dictated by: Kevan Zhou Jr., D.O. 02/14/2025 12:37 PM Dictation Location: [place] [address] Transcribed By: [facility] 02/14/25 1237 Dictated By: Kevan Zhou Jr, DO 02/14/25 1235 Signed By: 02/14/25 1237 [facility] XR KUBon 02-14-2025 XR KUB [place] [address] XRay Report Signed Patient: Wilda Sen MR#: [id number] 8 : 1945 Acct:[id number] Age/Sex: 79 / F ADM Date: 02/14/25 [facility]: [facility] Room: Type: [facility] Attending Dr: Eugenia Shepherd MD Copies to: Eugenia Shepherd MD Ordering Provider: Eugenia Shepherd MD Date of Service: 02/14/25 XR/XR KUB: STENT REMOVAL Intraoperative fluoroscopy INDICATION: Kidney stones, left stent removal TECHNIQUE: 2 mGy XR/XR KUB Findings and impression: Intraoperative images demonstrates placement of guidewire and removal of the left ureteral stent Impression dictated by: Tavon Young M.D. 02/14/2025 9:02 PM Dictation Location: RADIO-PC-29 Transcribed By: LUKASZ 02/14/252101 Dictated By: Tavon Young MD 02/14/252099 Signed By: 02/14/252101 Normal [facility] XR KUB [place] [address] XRay Report Signed Patient: Wilda Sen MR#: [id number] 8 : 1945 Acct:[id number] Age/Sex: 79 / F ADM Date: 02/14/25 [facility]: [facility] Room: Type: [facility] Attending Dr: Eugenia Shepherd MD Copies to: Eugenia Shepherd MD Ordering Provider: Eugenia Shepherd MD Date of Service: 02/14/25 XR/XR KUB: Ureteral Stone, Kidney stone KUB: CLINICAL INFORMATION: Preop lithotripsy left side. COMPARISON: KUB 03/12/2016. FINDINGS: Double-J left-sided ureteral stent is in place. Multiple presumed left renal calculi are present largest measuring 5 mm. No definitive calculus is seen along the course of the stent. Phleboliths are seen within the pelvis. No bowel obstruction or free air. Osseous structures demonstrate degenerative change. XR/XR KUB IMPRESSION: LEFT RENAL CALCULI LARGEST MEASURING 5 MM. Impression dictated by: Kevan Zhou Jr., D.OAlbin 02/14/2025 12:37 PM Dictation Location: RADIO-PC-23 Transcribed By: LUKASZ 02/14/25 1237 Dictated By: Kevan Zhou Jr, DO 02/14/25 1235 Signed By: 02/14/25 1237 Normal [facility] aPTT in Platelet poor plasma by Coagulation assayOrdered By: BLANCA SIM on 02-14-2025 aPTT Coag (PPP) [Time] 26.6 s 25.1-36.5 [facility] Comment on above: A hematocrit value g reater than 55% may lead to inaccurate results in coagulation testing. Patients having hematocrit values >55% require a special collection tube for coagulation studies. Please contact the laboratory at [phone] for redraw instructions. ECG 12 lead ECGon 02-11-2025 ECG 12 lead ECG [place] [address] Electrocardiograph Report Signed Patient: Wilda Sen MR#: [id number] 8 : 1945 Acct:[id number] Age/Sex: 79 / F ADM Date: 02/11/25 Loc: Room: Type: [facility] Attending Dr: Kristie MCFARLAND Ordering Provider: BRUNA Dodson Date of Service: 02/11/25/ ECG/ECG 12 lead ECG: See order Copies to: Test Reason : Blood Pressure : */* mmHG Vent. Rate : 68 BPM Atrial Rate : 68 BPM P-R Int : 160 ms QRS Dur : 72 ms QT Int : 372 ms P-R-T Axes : 53 60 49 degrees QTcB Int : 395 ms Sinus rhythm with marked sinus arrhythmia Otherwise normal ECG When compared with ECG of 26-Mar-2023 13:25, QRS axis shifted right Confirmed by Dez Chavez ([id number]) on 02/12/2025 3:51:55 PM Referred By: Electronically Signed By: Dez Chavez Transcribed By: MUS Signed By Dez Chavez MD 02/12/25 1551 Normal [facility] Urine Cultureon 02-04-2025 Bacteria identified Cx Nom (U) ORGANISM: Enterobacter cloacae complex (O:ENTCLOCPLX) Keiser Count 25,000 Aerobic KIKA Charge (NMIC56) SUSCEPTIBILITY ORGANISM: O:ENTCLOCPLX ANTIBIOTIC INTERPRETATION KIKA Amikacin S <16 Aztreonam I <4 Cefepime S <2 Ceftazidime I 8 Ceftriaxone I <1 Cefuroxime R >16 Ciprofloxacin S <0.25 Ertapenem S <0.5 Gentamicin S <2 Levofloxacin S <0.5 Meropenem S <1 Meropenem/Vaborbactam S <2 Nitrofurantoin S <32 Piperacillin/Tazobactam I <8 Tetracycline S <4 Tigecycline S <2 Tobramycin S <2 Trimethoprim/Sulfamethoxa zole S <0.5 S = SUSCEPTIBLE I = INTERMEDIATE R = RESISTANT BLANK = DATA NOT AVAILABLE, OR DRUG NOT ADVISABLE OR TESTED R* = RESISTANCE DUE TO EXTENDED SPECTRUM BETA-LACTAMASES ESBL = EXTENDED SPECTRUM BETA-LACTAMASE TFG = THYMIDINE-DEPENDENT STRAIN PATY = BETA-LACTAMASE POSITIVE IB = INDUCIBLE BETA-LACTAMASE. APPEARS IN PLACE OF 'S' WITH SPECIES KNOWN TO POSSESS INDUCIBLE BETA-LACTAMASES. POTENTIALLY THEY MAY BECOME RESISTANT TO ALL B-LACTAM DRUGS. PERFORMED BY: [place] [address] PATHOLOGIST GENERAL EDUCATION INSTRUCTOR IZABEL CHI M.D. Normal [facility] Comment on above: Performed By: #### C UU #### [address] Urine cultureOrdered By: Jonatan Tapia on 02-04-2025 Bacteria identified Cx Nom (U) Enterobacter cloacae complex Abnormal [facility] XR ABDOMEN 1Von 02-02-2025 [place] [id number] XRay Report Signed Patient: WILDA SEN MR#: [id number] : 1945 Acct:[id number] Age/Sex: 79 / F ADM Date: 02/02/25 Loc: RAD Attending Dr: Eugenia Shepherd M.D. Ordering Physician: Eugenia Shepherd M.D. Date of Service: 02/02/25 Procedure(s): XR abdomen 1V Accession Number(s): [id number] cc: Eugenia Shepherd M.D.; JAYME PEREZ [place] [id number] Patient Name: WILDA SEN MRN: [facility]:[id number] date: 1945 Sex: F Assigned Patient Location: RAD Current Patient Location: RAD Accession/Order Number: [id number] Exam Date: 02/02/2025 10:29 Report Date: 02/02/2025 10:30 At the request of: EUGENIA SHEPHERD MD Procedure: XR abdomen 1V KUB: CLINICAL [...] Jr., D.O. 02/02/2025 10:30 AM Dictation Location: [place] [address] Electronically authenticated by: [id number] Y Date: 02/02/2025 10:30 Dictated By: Kevan Zhou M.D. Signed By: 02/02/25 1033 DD/ 1030 TD/TT: Director Blood Bank: Robert Jonesogjazzmine fermin MD - 02/02/2025 [place] [address] XRay Report Signed Patient: WILDA SEN MR#: [id number] : 1945 Acct:[id number] Age/Sex: 79 / F ADM Date: 02/02/25 Loc: RAD Attending Dr: Eugenia Shepherd M.D. Ordering Physician: Eugenia Shepherd M.D. Date of Service: 02/02/25 Procedure(s): XR abdomen 1V Accession Number(s): [id number] cc: Eugenia Shepherd M.D.; JAYME PEREZ [address] [address] Patient Name: WILDA SEN MRN: [facility]:[id number] date: 1945 Sex: F Assigned Patient Location: [facility] Current Patient Location: RAD Accession/Order Number: [id number] Exam Date: 02/02/2025 10:29 Report Date: 02/02/2025 10:30 At the request of: EUGENIA SHEPHERD MD Procedure: XR abdomen 1V KUB: CLINICAL [...] Jr., D.O. 02/02/2025 10:30 AM Dictation Location: [place] [address] Electronically authenticated by: [id number] Y Date: 02/02/2025 10:30 Dictated By: Kevan Zhou M.D. Signed By: 02/02/25 1033 DD/ 1030 TD/TT: Director Blood Bank: [facility] Radiology Study observation (narrative) [facility] XR ABDOMEN 1VOrdered By: Gibson [facility]haoogn[facility] Radiology on 02-02-2025 [facility] Work Phone: ALL CBC WITH AUTO DIFFon BASOPHILS ABSOLUTE AUTO 0.1 [facility] Basophils/100 WBC (Bld) 0.7 % 0.2 - 2.0 % [facility] Eosinophils/100 WBC (Bld) 1.9 % 0.9 - 7.0 % [facility] Erythrocyte distribution width (RBC) [Ratio] 14.5 % 11.0 - 15.0 % [facility] Hematocrit (Bld) [Volume fraction] 37 % 36.0 - 48.0 % [facility] Hemoglobin (Bld) [Mass/Vol] 12 g/dL 12.0 - 16.0 g/dL [facility] IMMATURE GRANULOCYTES ABS AUTO 0.03 [facility] Immature granulocytes/100 WBC (Bld) 0.4 % 0.0 - 0.5 % [facility] Interpretation and review of laboratory results Abnormal [facility] LYMPHOCYTES ABSOLUTE AUTO 2.2 [facility] Lymphocytes/100 WBC (Bld) 30.9 % 20.5 - 60.0 % [facility] MCH (RBC) [Entitic mass] 31.3 pg 26.7 - 34.0 pg [facility] MCHC (RBC) [Mass/Vol] 32.4 g/dL 29.9 - 35.2 g/dL [facility] MCV (RBC) [Entitic vol] 96.4 fL 81.0 - 99.0 fL [facility] MONOCYTES ABSOLUTE AUTO 0.6 [facility] Monocytes/100 WBC (Bld) 8.3 % 1.7 - 12.0 % [facility] NEUTROPHILS ABSOLUTE AUTO 4.1 [facility] Neutrophils/100 WBC (Bld) 57.8 % 43.0 - 75.0 % [facility] Platelet mean volume (Bld) [Entitic vol] 8.9 fL Low 9.5 - 13.5 fL [facility] TB EO # 0.1 [facility] TB PLT 308 [facility] RBC 3.84 Low [facility] WBC 7 [facility] MR BRAIN W AND WO CONTRAST ( IACS)on 01-20-2025 MR BRAIN W AND WO CONTRAST (IACS) HISTORY: Vertigo. Unsteady gait. TECHNIQUE: IAC brain [...] unremarkable. The extracranial soft tissues are unremarkable. IMPRESSION: No acute intracranial process or suspicious enhancement. ELECTRONICALLY SIGNED BY: Noé Elizondo MD Normal Not Available [facility] PROTHROMBIN TIME INR W/O COUMon 01-06-2025 Interpretation and review of laboratory results Abnormal [facility] PT Coag (PPP) [Time] 21.7 s [facility] INR 2.22 [facility] Comment on above: DESIRED INR: 2.0-3.0 CONDITIONS NOT LISTED BELOW 2.5-3.5 FOR PROSTHETIC HEART VALVE REPLACEMENT 2.5-3.5 RECURRENT THROMBOSIS [facility] PROTHROMBIN TIME INR W/O COUMon 12-08-2024 Interpretation and review of laboratory results Abnormal [facility] PT Coag (PPP) [Time] 22.8 s [facility] INR 2.34 [facility] Comment on above: DESIRED INR: 2.0-3.0 CONDITIONS NOT LISTED BELOW 2.5-3.5 FOR PROSTHETIC HEART VALVE REPLACEMENT 2.5-3.5 [facility] CBC WITH AUTO DIFFon BASOPHILS ABSOLUTE AUTO 0.1 [facility] Basophils/100 WBC (Bld) 0.9 % 0.2 - 2.0 % [facility] Eosinophils/100 WBC (Bld) 5.6 % 0.9 - 7.0 % [facility] Erythrocyte distribution width (RBC) [Ratio] 14.6 % 11.0 - 15.0 % [facility] Hematocrit (Bld) [Volume fraction] 39.6 % 36.0 - 48.0 % [facility] Hemoglobin (Bld) [Mass/Vol] 12.7 g/dL 12.0 - 16.0 g/dL [facility] IMMATURE GRANULOCYTES ABS AUTO 0.02 [facility] Immature granulocytes/100 WBC (Bld) 0.4 % 0.0 - 0.5 % [facility] Interpretation and review of laboratory results Abnormal [facility] LYMPHOCYTES ABSOLUTE AUTO 1.8 [facility] Lymphocytes/100 WBC (Bld) 32 % 20.5 - 60.0 % [facility] MCH (RBC) [Entitic mass] 31 pg 26.7 - 34.0 pg [facility] MCHC (RBC) [Mass/Vol] 32.1 g/dL 29.9 - 35.2 g/dL [facility] MCV (RBC) [Entitic vol] 96.6 fL 81.0 - 99.0 fL [facility] MONOCYTES ABSOLUTE AUTO 0.6 [facility] Monocytes/100 WBC (Bld) 9.9 % 1.7 - 12.0 % [facility] NEUTROPHILS ABSOLUTE AUTO 2.9 [facility] Neutrophils/100 WBC (Bld) 51.2 % 43.0 - 75.0 % [facility] Platelet mean volume (Bld) [Entitic vol] 8.8 fL Low 9.5 - 13.5 fL [facility] EO # 0.3 [facility] PLT 284 [facility] RBC 4.1 Low [facility] WBC 5.7 [facility] MICROALB CREAT RATIO RAN DOMon 11-02-2024 CREATININE URINE RANDOM 149.56 mg/dL 20.00 - 300.00 mg/dL [facility] Interpretation and review of laboratory results Abnormal [facility] MICROALBUM CREATININE RATIO UR 129.7 mg/g High 0.0 - 29.9 mg/g [facility] Comment on above: NO MICROALBUMINURIA 0-29 MG/G CLINICAL MICROALBUMINURIA 30-300 MG/G MACROALBUMINURIA >300 MG/G MICROALBUMIN URINE RANDOM 19.4 mg/dL NINF - 30.0 mg/dL [facility] PROTHROMBIN TIME INR W/O COUMon 10-25-2024 Interpretation and review of laboratory results Abnormal [facility] PT Coag (PPP) [Time] 28.7 s [facility] INR 3.02 [facility] Comment on above: DESIRED INR: 2.0-3.0 CONDITIONS NOT LISTED BELOW 2.5-3.5 FOR PROSTHETIC HEART VALVE REPLACEMENT 2.5-3.5 RECURRENT THROMBOSIS [facility] ALL CBC WITH AUTO DIFFon BASOPHILS ABSOLUTE AUTO 0.1 [facility] Basophils/100 WBC (Bld) 1 % 0.2 - 2.0 % [facility] Eosinophils/100 WBC (Bld) 3.7 % 0.9 - 7.0 % [facility] Erythrocyte distribution width (RBC) [Ratio] 14.4 % 11.0 - 15.0 % [facility] Hematocrit (Bld) [Volume fraction] 38.7 % 36.0 - 48.0 % [facility] Hemoglobin (Bld) [Mass/Vol] 12.4 g/dL 12.0 - 16.0 g/dL [facility] IMMATURE GRANULOCYTES ABS AUTO 0.02 [facility] Immature granulocytes/100 WBC (Bld) 0.3 % 0.0 - 0.5 % [facility] Interpretation and review of laboratory results Abnormal [facility] LYMPHOCYTES ABSOLUTE AUTO 1.8 [facility] Lymphocytes/100 WBC (Bld) 28.4 % 20.5 - 60.0 % [facility] MCH (RBC) [Entitic mass] 30.9 pg 26.7 - 34.0 pg [facility] MCHC (RBC) [Mass/Vol] 32 g/dL 29.9 - 35.2 g/dL [facility] MCV (RBC) [Entitic vol] 96.5 fL 81.0 - 99.0 fL [facility] MONOCYTES ABSOLUTE AUTO 0.4 [facility] Monocytes/100 WBC (Bld) 5.9 % 1.7 - 12.0 % [facility] NEUTROPHILS ABSOLUTE AUTO 3.8 [facility] Neutrophils/100 WBC (Bld) 60.7 % 43.0 - 75.0 % [facility] Platelet mean volume (Bld) [Entitic vol] 8.9 fL Low 9.5 - 13.5 fL [facility] EO # 0.2 [facility] PLT 292 [facility] RBC 4.01 Low [facility] WBC 6.3 [facility]IN[facility] PROTHROMBIN TIME INR W/O COUMon 09-27-2024 Interpretation and review of laboratory results Abnormal [facility] PT Coag (PPP) [Time] 26.7 s [facility] INR 2.79 [facility] Comment on above: DESIRED INR: 2.0-3.0 CONDITIONS NOT LISTED BELOW 2.5-3.5 FOR PROSTHETIC HEART VALVE REPLACEMENT 2.5-3.5 [facility] PROT[facility]OM[facility] TIME INR W/O COUMon 09-13-2024 Interpretation and review of laboratory results Abnormal [facility] PT Coag (PPP) [Time] 17.8 s [facility] INR 1.78 [facility] Comment on above: DESIRED INR: 2.0-3.0 CONDITIONS NOT LISTED BELOW 2.5-3.5 FOR PROSTHETIC HEART VALVE REPLACEMENT 2.5-3.5 RECURRENT THROMBOSIS [facility] PROTHROMBIN TIME INR W/O COUMon 08-17-2024 Interpretation and review of laboratory results Abnormal [facility] PT Coag (PPP) [Time] 19.7 s [facility] INR 1.99 [facility] Comment on above: DESIRED INR: 2.0-3.0 CONDITIONS NOT LISTED BELOW 2.5-3.5 FOR PROSTHETIC HEART VALVE REPLACEMENT 2.5-3.5 RECURRENT THROMBOSIS [facility] Ophthalmic OCT panelon 08-04 [facility] Right Eye Images reviewed and comparison [...] layer (NFL) thickness both eyes (OU). Stable. [facility] Radiology Study observation (narrative) [facility] PROTHROMBIN TIME INR W/O COUMon 07-19-2024 Interpretation and review of laboratory results Abnormal [facility] PT Coag (PPP) [Time] 27 s [facility] INR 2.82 [facility] Comment on above: DESIRED INR: 2.0-3.0 CONDITIONS NOT LISTED BELOW 2.5-3.5 FOR PROSTHETIC HEART VALVE REPLACEMENT 2.5-3.5 RECURRENT THROMBOSIS [facility] Ambulatory Visit Summaryon 1 Ambulatory Visit Summary Ambulatory Visit Summary WILDA SEN :1945 Visit Date:07/12/2024 Ambulatory Visit Instructions Your Diagnosis Kidney stone Adrenal nodule Anticoagulated Your Care Team Attending Physician - CORA AGUIAR, Eugenia Venegas Primary Care Physician - CHRIS AGUIAR, JAYME Hazel This Is Your Medications List Contact prescribing physician if questions or concerns Non-Formulary Medication (Misc Medication) acarbose acetaminophen-oxycodone (Percocet 5 mg-325 mg oral tablet) aspirin [...] with CORA AGUIAR, MILDRED Castillo When: Where: [address] [place] [address] [place], [place] [id number]- Medications What How Much When Instructions Unchanged acarbose 100 Milligram By Mouth 3 times a day Contact prescribing physician if questions or concerns Unchanged acetaminophen-oxycodone (Percocet 5 mg-325 mg oral tablet) 1 [...] murmur History of uterine cancer Hx of snf use of blood thinners Kidney stone Kidney [...] depending (more content not included)... Normal [facility] Reminderson 07-12-2024 Reminders Reminders From: Julita Vu To: CHEVY Shepherd; Sent: 07/12/2024 12:09:59 EST Show up: [...] ) Other: PROVIDER RELATED REMINDER:_ ( ) Product Development Ecologist ( ) Call Pharmacy ( ) Call Lab ( ) Other: Special Instructions:_ Comments:_ [facility] Reminders Reminders From: Jo-Ann Schaeffer To: EU - Administrative; Sent: 07/12/2024 11:46:18 EST Show up: 04/17/2026 11:46:00 EDT Subject: 2 YR AND KUB Due Date/Time: 07/03/2026 11:46:00 EST Reminder/Recall SCHEDULE IN 2 YRS AND KUB W/ DR CORA Floyd [facility] Urology Office/Clinic Noteon 07-12-2024 Urology Office/Clinic Note Urology Office/Clinic Note Chief Complaint 3 month F/U w KUB HPI Staff 18 mo with KUB due to kidney stones. KUB 07/05[place] meds Dysuria: denies Incomplete bladder [...] nodule. Not worrisome, stable. 3. Anticoagulated (Z79.01: group home (current) use [...] Follow-up With When Contact Information CORA AGUIAR, Eugenia Venegas, URL [phone] [address]- Additional Instructions: 18 mos with KUB Patient Education Dietary Guidelines to Help Prevent Kidney Stones I, Julita Vu, personally scribed for Dr. Shepherd on 07/12/2024 11:45:03. . Portions of this record may have been created with voice recognition artificial intelligence software, specifically [employer] and or [employer]. Substitutions may have occurred due to the inherent limitations of voice recognition and artificial intelligence software. 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 Normal [facility] Comment on above: Result Comment: Elec tronically Signed By: Eugenia SHEPHERD MD P\.br\Date and Time Signed: 07/12/24 12:24 EST\.br\Electronically Co-Signed By: Julita Vu\.br\Date and Time Co-Signed: 07/12/24 11:46 EST [facility] PROTHROMBIN TIME INR W/O COUMon 07-01-2024 Interpretation and review of laboratory results Abnormal [facility] PT Coag (PPP) [Time] 30.3 s [facility] INR 3.21 [facility] Comment on above: DESIRED INR: 2.0-3.0 CONDITIONS NOT LISTED BELOW 2.5-3.5 FOR PROSTHETIC HEART VALVE REPLACEMENT 2.5-3.5 RECURRENT THROMBOSIS [facility] ALL CBC WITH AUTO DIFFon BASOPHILS ABSOLUTE AUTO 0.1 [facility] Basophils/100 WBC (Bld) 0.8 % 0.2 - 2.0 % [facility] Eosinophils/100 WBC (Bld) 3.2 % 0.9 - 7.0 % [facility] Erythrocyte distribution width (RBC) [Ratio] 14.5 % 11.0 - 15.0 % [facility] Hematocrit (Bld) [Volume fraction] 38.1 % 36.0 - 48.0 % [facility] Hemoglobin (Bld) [Mass/Vol] 12.3 g/dL 12.0 - 16.0 g/dL [facility] IMMATURE GRANULOCYTES ABS AUTO 0.03 [facility] Immature granulocytes/100 WBC (Bld) 0.5 % 0.0 - 0.5 % [facility] Interpretation and review of laboratory results Abnormal [facility] LYMPHOCYTES ABSOLUTE AUTO 2 [facility] Lymphocytes/100 WBC (Bld) 30.8 % 20.5 - 60.0 % [facility] MCH (RBC) [Entitic mass] 31.6 pg 26.7 - 34.0 pg [facility] MCHC (RBC) [Mass/Vol] 32.3 g/dL 29.9 - 35.2 g/dL [facility] MCV (RBC) [Entitic vol] 97.9 fL 81.0 - 99.0 fL [facility] MONOCYTES ABSOLUTE AUTO 0.5 [facility] Monocytes/100 WBC (Bld) 7.7 % 1.7 - 12.0 % [facility] NEUTROPHILS ABSOLUTE AUTO 3.8 [facility] Neutrophils/100 WBC (Bld) 57 % 43.0 - 75.0 % [facility] Platelet mean volume (Bld) [Entitic vol] 8.9 fL Low 9.5 - 13.5 fL [facility] TBH EO # 0.2 [facility] TB PLT 300 [facility] RBC 3.89 Low [facility] WBC 6.6 [facility] W/O COUMon 05-14-2024 Interpretation and review of laboratory results Abnormal [facility] PT Coag (PPP) [Time] 23 s [facility] INR 2.36 [facility] [facility] Comment on above: DESIRED INR: 2.0-3.0 CONDITIONS NOT LISTED BELOW 2.5-3.5 FOR PROSTHETIC HEART VALVE REPLACEMENT 2.5-3.5 RECURRENT THROMBOSIS [facility] CREATININEon 04-22-2024 Creatinine [Mass/Vol] 0.84 mg/dL 0.55 - 1.02 mg/dL [facility] GFR/1.73 sq M.predicted CKD-EPI (S/P/Bld) [Vol rate/Area] >60 >=60 mL/min/1.7 3m 2 [facility] EGFR-NON AF SRI LANKAN >60 >=60 mL/min/1.7 3m 2 [facility] ALL CBC WITH AUTO DIFFon BASOPHILS ABSOLUTE AUTO 0.0 [facility] Basophils/100 WBC (Bld) 0.6 % 0.2 - 2.0 % [facility] Eosinophils/100 WBC (Bld) 2.1 % 0.9 - 7.0 % [facility] Erythrocyte distribution width (RBC) [Ratio] 14.1 % 11.0 - 15.0 % [facility] Hematocrit (Bld) [Volume fraction] 41.8 % 36.0 - 48.0 % [facility] Hemoglobin (Bld) [Mass/Vol] 13.5 g/dL 12.0 - 16.0 g/dL [facility] IMMATURE GRANULOCYTES ABS AUTO 0.02 [facility] Immature granulocytes/100 WBC (Bld) 0.3 % 0.0 - 0.5 % [facility] Interpretation and review of laboratory results Abnormal [facility] LYMPHOCYTES ABSOLUTE AUTO 2.1 [facility] Lymphocytes/100 WBC (Bld) 32.2 % 20.5 - 60.0 % [facility] MCH (RBC) [Entitic mass] 31.0 pg 26.7 - 34.0 pg [facility] MCHC (RBC) [Mass/Vol] 32.3 g/dL 29.9 - 35.2 g/dL [facility] MCV (RBC) [Entitic vol] 95.9 fL 81.0 - 99.0 fL [facility] MONOCYTES ABSOLUTE AUTO 0.5 [facility] Monocytes/100 WBC (Bld) 6.8 % 1.7 - 12.0 % [facility] NEUTROPHILS ABSOLUTE AUTO 3.8 [facility] Neutrophils/100 WBC (Bld) 58.0 % 43.0 - 75.0 % [facility] Platelet mean volume (Bld) [Entitic vol] 8.6 fL Low 9.5 - 13.5 fL [facility] EO # 0.1 [facility] PLT 316 [facility] RBC 4.36 [facility] WBC 6.6 [facility] SRMCOH PROTHROMBIN TIME INR W/O COUMon 04-13-2024 Interpretation and review of laboratory results Abnormal [facility] PT Coag (PPP) [Time] 27.7 s High [facility] INR 2.90 [facility] Comment on above: DESIRED INR: 2.0-3.0 CONDITIONS NOT LISTED BELOW 2.5-3.5 FOR PROSTHETIC HEART VALVE REPLACEMENT 2.5-3.5 RECURRENT THROMBOSIS [facility] Magnesium [Mass/volume] in S fartun or PlasmaOrdered By: Radames Monteiro on 03-31-2024 Magnesium [Mass/Vol] 1.9 mg/dL Normal 1.9-2.7 [facility] Comment on above: Result Comment: PERF ORMED BY: [place] [address] PATHOLOGIST GENERAL EDUCATION INSTRUCTOR BERNIE GRAYSON M.D. Performed By: #### Joe Alcantara PHOS #### [facility] [address] [place] [address] Phosphate [Mass/volume] in S fartun or PlasmaOrdered By: Radames Monteiro on 03-31-2024 Phosphate [Mass/Vol] 3.7 mg/dL Normal 2.5-4.5 [facility] Comment on above: Performed By: #### Joe Alcantara, PHOS #### [facility] [address] [place] [address] ALL CBC WITH AUTO DIFFon BASOPHILS ABSOLUTE AUTO 0.0 [facility] Basophils/100 WBC (Bld) 0.6 % 0.2 - 2.0 % [facility] Eosinophils/100 WBC (Bld) 5.1 % 0.9 - 7.0 % [facility] Erythrocyte distribution width (RBC) [Ratio] 14.3 % 11.0 - 15.0 % [facility] Hematocrit (Bld) [Volume fraction] 41.5 % 36.0 - 48.0 % [facility] Hemoglobin (Bld) [Mass/Vol] 13.3 g/dL 12.0 - 16.0 g/dL [facility] IMMATURE GRANULOCYTES ABS AUTO 0.01 [facility] Immature granulocytes/100 WBC (Bld) 0.1 % 0.0 - 0.5 % [facility] Interpretation and review of laboratory results Abnormal [facility] LYMPHOCYTES ABSOLUTE AUTO 2.9 [facility] Lymphocytes/100 WBC (Bld) 39.4 % 20.5 - 60.0 % [facility] MCH (RBC) [Entitic mass] 30.9 pg 26.7 - 34.0 pg [facility] MCHC (RBC) [Mass/Vol] 32.0 g/dL 29.9 - 35.2 g/dL [facility] MCV (RBC) [Entitic vol] 96.5 fL 81.0 - 99.0 fL [facility] MONOCYTES ABSOLUTE AUTO 0.4 [facility] Monocytes/100 WBC (Bld) 6.1 % 1.7 - 12.0 % [facility] NEUTROPHILS ABSOLUTE AUTO 3.5 [facility] Neutrophils/100 WBC (Bld) 48.7 % 43.0 - 75.0 % [facility] Platelet mean volume (Bld) [Entitic vol] 8.7 fL Low 9.5 - 13.5 fL [facility] EO # 0.4 [facility] PLT 291 [facility] RBC 4.30 [facility] WBC 7.2 [facility] SRMCOH PROTHROMBIN TIME INR W/O COUMon 03-17-2024 Interpretation and review of laboratory results Abnormal [facility] PT Coag (PPP) [Time] 28.2 s High [facility] INR 2.96 [facility] Comment on above: DESIRED INR: 2.0-3.0 CONDITIONS NOT LISTED BELOW 2.5-3.5 FOR PROSTHETIC HEART VALVE REPLACEMENT 2.5-3.5 [facility]23 Urea nitrogen [Mass/Vol] 12.0 mg/dL 7.0 - 18.0 mg/dL [facility] ALL CARBON DIOXIDEon 024 CO2 [Moles/Vol] 30.1 mmol/L 21.0 - 32.0 mmol/L [facility] ALL CHLORIDEon 08-20-2023 Chloride [Moles/Vol] 104 mmol/L 98 - 10 7 mmol/L [facility] ALL PHOSPHOROUSon 08-20-2023 Phosphate [Mass/Vol] 4.1 mg/dL 2.6 - 4 .7 mg/dL [facility] ALL SODIUMon 08-20-2023 Sodium [Moles/Vol] 141 mmol/L 136 - 145 mmol/L [facility] ALL URIC ACIDon 08-20-2023 Urate [Mass/Vol] 4.4 mg/dL 2.6 - 6.0 mg/dL [facility] CALCIUMon 08-20-2023 Calcium [Mass/Vol] 9.1 mg/dL 8.5 - 10. 1 mg/dL [facility] No Panel Informationon 08-20 [facility] CREATININEon 08-20-2023 Creatinine [Mass/Vol] 0.86 mg/dL 0.55 - 1.02 mg/dL [facility] GFR/1.73 sq M.predicted CKD-EPI (S/P/Bld) [Vol rate/Area] >60 60 - PINF [facility] EGFR-NON AF SRI LANKAN >60 60 - PINF [facility] COVID/FLU/RSV RT-PCRon 07-25 SARS-CoV-2 (COVID-19) RNA TREASURE+probe Ql (Unsp spec) Negative [facility] Other COVID/FLU/RSV RT-PCR Negative [facility] Other COVID/FLU/RSV RT-PCR Positive [facility] Other Activated partial thrombopla stin time (aPTT) in platelet poor plasma by coagulation aOrdered By: Eugenia Shepherd on 03-26-2023 aPTT Coag (PPP) [Time] 35.9 s 25.1-36.5 [facility] Comment on above: A hematocrit value g reater than 55% may lead to inaccurate results in coagulation testing. Patients having hematocrit values >55% require a special collection tube for coagulation studies. Please contact the laboratory at [phone] for redraw instructions. Basophils Auto (Bld) [#/Vol] Ordered By: Eugenia Shepherd on 03-26-2023 Basophils (Bld) [#/Vol] 0.0 10*3/uL 0.0-0.2 [facility] Basophils/100 WBC Auto (Bld) Ordered By: Eugenia Shepherd on 03-26-2023 Basophils/100 WBC (Bld) 0.8 % . [facility] Calcium [Mass/volume] in Ser um or PlasmaOrdered By: Eugenia Shepherd on 03-26-2023 Calcium [Mass/Vol] 10.0 mg/dL 8.6-10.3 [facility] Carbon dioxide, total [Moles /volume] in Serum or PlasmaOrdered By: Eugenia Shepherd on 03-26-2023 CO2 [Moles/Vol] 30.0 mmol/L 21.0-31.0 [facility] Chloride [Moles/volume] in S fartun or PlasmaOrdered By: Eugenia Shepherd on 03-26-2023 Chloride [Moles/Vol] 104 mmol/L 98-107 [facility] Creatinine [Mass/volume] in Serum or PlasmaOrdered By: Eugenia Shepherd on 03-26-2023 Creatinine [Mass/Vol] 0.85 mg/dL 0.60-1.20 [facility] Eosinophils Auto (Bld) [#/Vo l]Ordered By: Eugenia Shepherd on 03-26-2023 Eosinophils (Bld) [#/Vol] 0.3 10*3/uL 0.0-0.45 [facility] Eosinophils/100 WBC Auto (Bl d)Ordered By: Eugenia Shepherd on 03-26-2023 Eosinophils/100 WBC (Bld) 4.3 % . [facility] Erythrocyte distribution wid th Auto (RBC) [Ratio]Ordered By: Eugenia Shepherd on 03-26-2023 Erythrocyte distribution width (RBC) [Ratio] 14.8 % 11.9-15.3 [facility] Glucose [Mass/volume] in Ser um or PlasmaOrdered By: Eugenia Shepherd on 03-26-2023 Glucose [Mass/Vol] 111 mg/dL 70-100 [facility] Comment on above: ADA recommended refe rence rangeRandom Glucose Reference Range is dependent on time and content of last meal. Glucose of more than 200 mg/dL in a nonstressed, ambulatory subject supports the diagnosis of Diabetes Mellitus. Hematocrit Auto (Bld) [Volum e fraction]Ordered By: Eugenia Shepherd on 03-26-2023 Hematocrit (Bld) [Volume fraction] 40.3 % 34.0-46.4 [facility] Hemoglobin [Mass/volume] in BloodOrdered By: Eugenia Shepherd on 03-26-2023 Hemoglobin (Bld) [Mass/Vol] 13.3 g/dL 11.8-15.4 [facility] INR in Platelet poor plasma by Coagulation assayOrdered By: Eugenia Shepherd on 03-26-2023 INR Coag (PPP) [Relative time] 2.3 {INR} [facility] Comment on above: INR Therapeutic Rang [...] erythrocytes in Blood by Automated counOrdered By: Eugenia Shepherd on 03-26-2023 WBC corrected for nucl RBC Auto (Bld) [#/Vol] 5.9 10*3/uL 3.8-11.6 [facility] Lymphocytes Auto (Bld) [#/Vo l]Ordered By: Eugenia Shepherd on 03-26-2023 Lymphocytes (Bld) [#/Vol] 2.2 10*3/uL 1.00-4.8 [facility] Lymphocytes/100 WBC Auto (Bl d)Ordered By: Eugenia Shepherd on 03-26-2023 Lymphocytes/100 WBC (Bld) 36.9 % . [facility] MCH Auto (RBC) [Entitic mass ]Ordered By: Eugenia Shepherd on 03-26-2023 MCH (RBC) [Entitic mass] 31.1 pg 24.7-34.3 [facility] MCHC Auto (RBC) [Mass/Vol]Or dered By: Eugenia Shepherd on 03-26-2023 MCHC (RBC) [Mass/Vol] 32.9 g/dL 32.0-35.0 [facility] MCV Auto (RBC) [Entitic vol] Ordered By: Eugenia Shepherd on 03-26-2023 MCV (RBC) [Entitic vol] 94.4 fL 80-100 [facility] Monocytes Auto (Bld) [#/Vol] Ordered By: Eugenia Shepherd on 03-26-2023 Monocytes (Bld) [#/Vol] 0.5 10*3/uL 0.0-0.8 [facility] Monocytes/100 WBC Auto (Bld) Ordered By: Eugenia Shepherd on 03-26-2023 Monocytes/100 WBC (Bld) 7.8 % . [facility] Neutrophils Auto (Bld) [#/Vo l]Ordered By: Eugenia Shepherd on 03-26-2023 Neutrophils (Bld) [#/Vol] 3.0 10*3/uL 1.8-7.7 [facility] Neutrophils/100 WBC Auto (Bl d)Ordered By: Eugenia Shepherd on 03-26-2023 Neutrophils/100 WBC (Bld) 50.2 % . [facility] No Panel InformationOrdered By: Eugenia Shepherd on 03-26-2023 Estimated GFR (CKD-EPI) > 60.0 mL/Min [facility] Creatinine Clearance (Chem N/A [facility] Nucleated erythrocytes [Pres ence] in Blood by Automated countOrdered By: Eugenia Shepherd on 03-26-2023 Nucleated RBC Auto Ql (Bld) 0.3 /100{WBC} 0-0.5 [facility] Platelet mean volume Auto (B ld) [Entitic vol]Ordered By: Eugenia Shepherd on 03-26-2023 Platelet mean volume (Bld) [Entitic vol] 7.1 fL 6.3-10.7 [facility] Platelets Auto (Bld) [#/Vol] Ordered By: Eugenia Shepherd on 03-26-2023 Platelets (Bld) [#/Vol] 363 10*3/uL 150-450 [facility] Potassium [Moles/volume] in Serum or PlasmaOrdered By: Eugenia Shepherd on 03-26-2023 Potassium [Moles/Vol] 5.0 mmol/L 3.5-5.1 [facility] Prothrombin time (PT)Ordered By: Eugenia Shepherd on 03-26-2023 PT Coag (PPP) [Time] 26.6 s 9.0-12.9 [facility] Comment on above: A hematocrit value g reater than 55% may lead to inaccurate results in coagulation testing. Patients having hematocrit values >55% require a special collection tube for coagulation studies. Please contact the laboratory at [phone] for redraw instructions. RBC Auto (Bld) [#/Vol]Ordere d By: Eugenia Shepherd on 03-26-2023 RBC (Bld) [#/Vol] 4.27 10*6/uL 3.60-5.00 [facility] Serum or plasma anion gap de terminationOrdered By: Eugenia Shepherd on 03-26-2023 Anion gap [Moles/Vol] 13.0 mmol/L 6.0-15.0 [facility] Sodium [Moles/volume] in Ser um or PlasmaOrdered By: Eugenia Shepherd on 03-26-2023 Sodium [Moles/Vol] 142 mmol/L 136-145 [facility] Urea nitrogen [Mass/volume] in Serum or PlasmaOrdered By: Eugenia Shepherd on 03-26-2023 Urea nitrogen [Mass/Vol] 12 mg/dL 7-25 [facility] WBC Auto (Bld) [#/Vol]Ordere d By: Eugenia Shepherd on 03-26-2023 WBC (Bld) [#/Vol] 5.9 10*3/uL 3.8-11.6 [facility] PROTIMEon 12-02-2022 INR Coag (PPP) [Relative time] 3.62 {INR} Normal [facility] Comment on above: Performed By: #### P T #### [facility] [address] [address] [address] Tg Fierro INR GUIDELINES SEE BELOW Normal [facility] Comment on above: Result Comment: LAURENCE RED INR: 2.0 - 3.0 CONDITIONS NOT LISTED BELOW 2.5 - 3.5 FOR PROSTHETIC HEART VALVE REPLACEMENT 2.5 - 3.5 RECURRENT THROMBOSIS Performed By: #### P T #### [facility] [address] [place] [address] Dr. Tg Fierro PT Coag (PPP) [Time] 35.7 s Critically high 9.0-11.6 [facility] Comment on above: Performed By: #### P T #### [facility] [address] [place] [address] Dr. Tg Fierro PROTIMEon 11-11-2022 INR Coag (PPP) [Relative time] 1.90 {INR} Normal [facility] Comment on above: Performed By: #### P T #### [facility] [address] [place] [address] Dr. Tg Fierro INR GUIDELINES SEE BELOW Normal [facility] Comment on above: Result Comment: LAURENCE RED INR: 2.0 - 3.0 CONDITIONS NOT LISTED BELOW 2.5 - 3.5 FOR PROSTHETIC HEART VALVE REPLACEMENT 2.5 - 3.5 RECURRENT THROMBOSIS Performed By: #### P T #### [facility] [address] [place] [address] Dr. Tg Fierro PT Coag (PPP) [Time] 19.4 s Critically high 9.0-11.6 [facility] Comment on above: Performed By: #### P T #### [facility] [address] [place] [address] Dr. Tg Fierro CBC AUTO DIFFon 10-25-2022 BASO # 0.0 103/ul Normal 0.0-0.1 [facility] Comment on above: Performed By: #### P T #### [facility] [address] [place] [address] Dr. Tg Fierro Basophils/100 WBC (Bld) 0.5 % Normal 0.2-2.0 [facility] Comment on above: Performed By: #### P T #### [facility] [address] [place] [address] Dr. Tg Fierro EO # 0.2 103/ul Normal 0.0-0.7 [facility] Comment on above: Performed By: #### P T #### [facility] [address] [place] [address] Dr. Tg Fierro Eosinophils/100 WBC (Bld) 2.7 % Normal 0.9-7.0 [facility] Comment on above: Performed By: #### P T #### [facility] [address] [place] [address] Dr. Tg Fierro Erythrocyte distribution width (RBC) [Ratio] 13.4 % Normal 11.0-15.0 [facility] Comment on above: Performed By: #### P T #### [facility] [address] [place] [address] Dr. Tg Fierro Hematocrit (Bld) [Volume fraction] 40.7 % Normal 36.0-48.0 [facility] Comment on above: Performed By: #### P T #### [facility] [address] [place] [address] Dr. Tg Fierro Hemoglobin (Bld) [Mass/Vol] 13.2 g/dL Normal 12.0-16.0 [facility] Comment on above: Performed By: #### P T #### [facility] [address] [place] [address] Dr. Tg Fierro IG # 0.03 10e3/ul Normal 0.00-0.03 [facility] Comment on above: Performed By: #### P T #### [facility] [address] [place] [address] Dr. Tg Fierro IG % 0.5 % Normal 0.0-0.5 [facility] Comment on above: Performed By: #### P T #### [facility] [address] [place] [address] Dr. Tg Fierro LYMPH # 2.1 103/ul Normal 1.2-3.8 [facility] Comment on above: Performed By: #### P T #### [facility] [address] [place] [address] Dr. Tg Fierro Lymphocytes/100 WBC (Bld) 34.9 % Normal 20.5-60.0 [facility] Comment on above: Performed By: #### P T #### [facility] [address] [place] [address] Dr. Tg Fierro MANUAL DIFF REQ NO Normal [facility] Comment on above: Performed By: #### P T #### [facility] [address] [place] [address] Dr. Tg Fierro MCH (RBC) [Entitic mass] 30.5 pg Normal 26.7-34.0 [facility] Comment on above: Performed By: #### P T #### [facility] [address] [place] [address] Dr. Tg Fierro MCHC (RBC) [Mass/Vol] 32.4 g/dL Normal 29.9-35.2 [facility] Comment on above: Performed By: #### P T #### [facility] [address] [place] [address] Dr. Tg Fierro MCV (RBC) [Entitic vol] 94.0 fL Normal 81.0-99.0 [facility] Comment on above: Performed By: #### P T #### [facility] [address] [place] [address] Dr. Tg Fierro MONO # 0.4 103/ul Normal 0.3-0.8 [facility] Comment on above: Performed By: #### P T #### [facility] [address] [place] [address] Dr. Tg Fierro Monocytes/100 WBC (Bld) 7.1 % Normal 1.7-12.0 [facility] Comment on above: Performed By: #### P T #### [facility] [address] [place] [address] Dr. Tg Fierro NEUT # 3.2 103/ul Normal 1.4-6.5 [facility] Comment on above: Performed By: #### P T #### [facility] [address] [place] [address] Dr. Tg Fierro Neutrophils/100 WBC (Bld) 54.3 % Normal 43.0-75.0 [facility] Comment on above: Performed By: #### P T #### [facility] [address] [address] [address] Tg Fierro Platelet mean volume (Bld) [Entitic vol] 8.7 fL Critically low 9.5-13.5 [facility] Comment on above: Performed By: #### P T #### [facility] [address] [place] [address] Dr. Tg Fierro PLT 295 103/ul Normal 150-450 [facility] Comment on above: Performed By: #### P T #### [facility] [address] [place] [address] Dr. Tg Fierro RBC 4.33 106/ul Normal 4.20-5.40 [facility] Comment on above: Performed By: #### P T #### [facility] [address] [place] [address] Dr. Tg Fierro WBC 5.9 103/ul Normal 4.0-11.0 [facility] Comment on above: Performed By: #### P T #### [facility] [address] [place] [address] Dr. Tg Fierro PROF 14(COMP METB)on 023 Albumin [Mass/Vol] 3.8 g/dL Normal 3.4-5.0 [facility] Comment on above: Performed By: #### C MP #### [facility] [address] [place] [address] Dr. Tg Fierro Albumin/Globulin [Mass ratio] 1.2 {ratio} Normal [facility] Comment on above: Performed By: #### C MP #### [facility] [address] [place] [address] Dr. Tg Fierro ALP [Catalytic activity/Vol] 49 U/L Normal 46-116 [facility] Comment on above: Performed By: #### C MP #### [facility] [address] [place] [address] Dr. Tg Fierro ALT [Catalytic activity/Vol] 21 U/L Normal 14-59 [facility] Comment on above: Performed By: #### C MP #### [facility] [address] [address] [address] Tg Fierro Anion gap [Moles/Vol] 13.3 mmol/L Normal [facility] Comment on above: Performed By: #### C MP #### [facility] [address] [address] [address] Tg Fierro AST [Catalytic activity/Vol] 14 U/L Critically low 15-37 [facility] Comment on above: Performed By: #### C MP #### [facility] [address] [address] [address] Tg Fierro Bilirubin [Mass/Vol] 0.5 mg/dL Normal 0.2-1.0 [facility] Comment on above: Performed By: #### C MP #### [facility] [address] [address] [address] Tg Fierro Calcium [Mass/Vol] 9.5 mg/dL Normal 8.5-10.1 [facility] Comment on above: Performed By: #### C MP #### [facility] [address] [address] [address] Tg Fierro Chloride [Moles/Vol] 104 mmol/L Normal 98-107 [facility] Comment on above: Performed By: #### C MP #### [facility] [address] [address] [address] Tg Fierro CO2 [Moles/Vol] 29.3 mmol/L Normal 21.0-32.0 [facility] Comment on above: Performed By: #### C MP #### [facility] [address] [place] [address] Dr. Tg Fierro Creatinine [Mass/Vol] 0.93 mg/dL Normal 0.55-1.02 [facility] Comment on above: Performed By: #### C MP #### [facility] [address] [place] [address] Dr. Tg Fierro EGFR-AF SRI LANKAN >60 Normal >=60 [facility] Comment on above: Performed By: #### C MP #### [facility] [address] [address] [address] Tg Fierro EGFR-NON AF SRI LANKAN 59 mL/min/1.73m2 Critically low >=60 [facility] Comment on above: Performed By: #### C MP #### [facility] [address] [address] [address] Tg Fierro Globulin (S) [Mass/Vol] 3.2 g/dL Normal [facility] Comment on above: Performed By: #### C MP #### [facility] [address] [address] [address] Tg Fierro Glucose [Mass/Vol] 186 mg/dL Critically high 74-106 [facility] Comment on above: Performed By: #### C MP #### [facility] [address] [address] [address] Tg Fierro Potassium [Moles/Vol] 4.6 mmol/L Normal 3.5-5.1 [facility] Comment on above: Performed By: #### C MP #### [facility] [address] [place] [address] Dr. Tg Fierro Protein [Mass/Vol] 7.0 g/dL Normal 6.4-8.2 [facility] Comment on above: Performed By: #### C MP #### [facility] [address] [place] [address] Dr. Tg Fierro Sodium [Moles/Vol] 142 mmol/L Normal 136-145 [facility] Comment on above: Performed By: #### C MP #### [facility] [address] [address] [address] Tg Fierro Urea nitrogen [Mass/Vol] 15.0 mg/dL Normal 7.0-18.0 [facility] Comment on above: Performed By: #### C MP #### [facility] [address] [place] [address] Dr. Tg Fierro Urea nitrogen/Creatinine [Mass ratio] 16.1 mg/mg Normal [facility] Comment on above: Performed By: #### C MP #### [facility] [address] [address] [address] Tg Fierro SED RATE WESTERGREN 2022 SED RATE 9 mm/hr Normal <=30 [facility] Comment on above: Performed By: #### C MP #### [facility] [address] [place] [address] Dr. Tg Fierro PROTIMEon 10-14-2022 INR Coag (PPP) [Relative time] 1.94 {INR} Normal [facility] Comment on above: Performed By: #### P T #### [facility] [address] [place] [address] Dr. Tg Fierro INR GUIDELINES SEE BELOW Normal [facility] Comment on above: Result Comment: LAURENCE RED INR: 2.0 - 3.0 CONDITIONS NOT LISTED BELOW 2.5 - 3.5 FOR PROSTHETIC HEART VALVE REPLACEMENT 2.5 - 3.5 RECURRENT THROMBOSIS Performed By: #### P T #### [facility] [address] [place] [address] Dr. Tg Fierro PT Coag (PPP) [Time] 19.8 s Critically high 9.0-11.6 [facility] Comment on above: Performed By: #### P T #### [facility] [address] [place] [address] Dr. Tg Fierro CBC AUTO DIFFon 09-24-2022 BASO # 0.1 103/ul Normal 0.0-0.1 [facility] Comment on above: Performed By: #### P T #### [facility] [address] [place] [address] Dr. Tg Fierro Basophils/100 WBC (Bld) 0.7 % Normal 0.2-2.0 [facility] Comment on above: Performed By: #### P T #### [facility] [address] [place] [address] Dr. Tg Fierro EO # 0.3 103/ul Normal 0.0-0.7 [facility] Comment on above: Performed By: #### P T #### [facility] [address] [place] [address] Dr. Tg Fierro Eosinophils/100 WBC (Bld) 3.6 % Normal 0.9-7.0 [facility] Comment on above: Performed By: #### P T #### [facility] [address] [address] [address] Tg Fierro Erythrocyte distribution width (RBC) [Ratio] 13.4 % Normal 11.0-15.0 [facility] Comment on above: Performed By: #### P T #### [facility] [address] [place] [address] Dr. Tg Fierro Hematocrit (Bld) [Volume fraction] 38.4 % Normal 36.0-48.0 [facility] Comment on above: Performed By: #### P T #### [facility] [address] [place] [address] Dr. Tg Fierro Hemoglobin (Bld) [Mass/Vol] 12.7 g/dL Normal 12.0-16.0 [facility] Comment on above: Performed By: #### P T #### [facility] [address] [place] [address] Dr. Tg iFerro IG # 0.05 10e3/ul Critically high 0.00-0.03 [facility] Comment on above: Performed By: #### P T #### [facility] [address] [place] [address] Dr. Tg Fierro IG % 0.7 % Critically high 0.0-0.[address] [facility] Comment on above: Performed By: #### P T #### [facility] [address] [place] [address] Dr. Tg Fierro LYMPH # 2.6 103/ul Normal 1.2-3.8 [facility] Comment on above: Performed By: #### P T #### [facility] [address] [place] [address] Dr. Tg Fierro Lymphocytes/100 WBC (Bld) 34.2 % Normal 20.5-60.0 [facility] Comment on above: Performed By: #### P T #### [facility] [address] [place] [address] Dr. Tg Fierro MANUAL DIFF REQ NO Normal [facility] Comment on above: Performed By: #### P T #### [facility] [address] [place] [address] Dr. Tg Fierro MCH (RBC) [Entitic mass] 31.2 pg Normal 26.7-34.0 [facility] Comment on above: Performed By: #### P T #### [facility] [address] [place] [address] Dr. Tg Fierro MCHC (RBC) [Mass/Vol] 33.1 g/dL Normal 29.9-35.2 [facility] Comment on above: Performed By: #### P T #### [facility] [address] [place] [address] Dr. Tg Fierro MCV (RBC) [Entitic vol] 94.3 fL Normal 81.0-99.0 [facility] Comment on above: Performed By: #### P T #### [facility] [address] [place] [address] Dr. Tg Fierro MONO # 0.6 103/ul Normal 0.3-0.8 [facility] Comment on above: Performed By: #### P T #### [facility] [address] [place] [address] Dr. Tg Fierro Monocytes/100 WBC (Bld) 8.1 % Normal 1.7-12.0 [facility] Comment on above: Performed By: #### P T #### [facility] [address] [place] [address] Dr. Tg Fierro NEUT # 4.1 103/ul Normal 1.4-6.5 [facility] Comment on above: Performed By: #### P T #### [facility] [address] [place] [address] Dr. Tg Fierro Neutrophils/100 WBC (Bld) 52.7 % Normal 43.0-75.0 [facility] Comment on above: Performed By: #### P T #### [facility] [address] [place] [address] Dr. Tg Fierro Platelet mean volume (Bld) [Entitic vol] 8.7 fL Critically low 9.5-13.5 [facility] Comment on above: Performed By: #### P T #### [facility] [address] [place] [address] Dr. Tg Fierro PLT 278 103/ul Normal 150-450 [facility] Comment on above: Performed By: #### P T #### [facility] [address] [place] [address] Dr. Tg Fierro RBC 4.07 106/ul Critically low 4.20-5.[address] [facility] Comment on above: Performed By: #### P T #### [facility] [address] [place] [address] Dr. Tg Fierro WBC 7.7 103/ul Normal 4.0-11.0 [facility] Comment on above: Performed By: #### P T #### [facility] [address] [place] [address] Dr. Tg Fierro PROF 14(COMP METB)on 023 Albumin [Mass/Vol] 3.9 g/dL Normal 3.4-5.0 [facility] Comment on above: Performed By: #### C MP #### [facility] [address] [place] [address] Dr. Tg Fierro Albumin/Globulin [Mass ratio] 1.4 {ratio} Normal [facility] Comment on above: Performed By: #### C MP #### [facility] [address] [place] [address] Dr. Tg Fierro ALP [Catalytic activity/Vol] 59 U/L Normal 46-116 [facility] Comment on above: Performed By: #### C MP #### [facility] [address] [place] [address] Dr. Tg Fierro ALT [Catalytic activity/Vol] 21 U/L Normal 14-59 [facility] Comment on above: Performed By: #### C MP #### [facility] [address] [place] [address] Dr. Tg Fierro Anion gap [Moles/Vol] 10.8 mmol/L Normal [facility] Comment on above: Performed By: #### C MP #### [facility] [address] [address] [address] Tg Fierro AST [Catalytic activity/Vol] 9 U/L Critically low 15-37 [facility] Comment on above: Performed By: #### C MP #### [facility] [address] [place] [address] Dr. Tg Fierro Bilirubin [Mass/Vol] 0.3 mg/dL Normal 0.2-1.0 [facility] Comment on above: Performed By: #### C MP #### [facility] [address] [place] [address] Dr. Tg Fierro Calcium [Mass/Vol] 9.1 mg/dL Normal 8.5-10.1 [facility] Comment on above: Performed By: #### C MP #### [facility] [address] [place] [address] Dr. Tg Fierro Chloride [Moles/Vol] 104 mmol/L Normal 98-107 [facility] Comment on above: Performed By: #### C MP #### [facility] [address] [place] [address] Dr. Tg Fierro CO2 [Moles/Vol] 28.3 mmol/L Normal 21.0-32.0 [facility] Comment on above: Performed By: #### C MP #### [facility] [address] [place] [address] Dr. Tg Fierro Creatinine [Mass/Vol] 0.86 mg/dL Normal 0.55-1.02 [facility] Comment on above: Performed By: #### C MP #### [facility] [address] [place] [address] Dr. Tg Fierro EGFR-AF SRI LANKAN >60 Normal >=60 [facility] Comment on above: Performed By: #### C MP #### [facility] [address] [place] [address] Dr. Tg Fierro EGFR-NON AF SRI LANKAN >60 Normal >=60 [facility] Comment on above: Performed By: #### C MP #### [facility] [address] [place] [address] Dr. Tg Fierro Globulin (S) [Mass/Vol] 2.7 g/dL Normal [facility] Comment on above: Performed By: #### C MP #### [facility] [address] [address] [address] Tg Fierro Glucose [Mass/Vol] 120 mg/dL Critically high 74-106 [facility] Comment on above: Performed By: #### C MP #### [facility] [address] [address] [address] Tg Fierro Potassium [Moles/Vol] 4.1 mmol/L Normal 3.5-5.1 [facility] Comment on above: Performed By: #### C MP #### [facility] [address] [address] [address] Tg Fierro Protein [Mass/Vol] 6.6 g/dL Normal 6.4-8.2 [facility] Comment on above: Performed By: #### C MP #### [facility] [address] [address] [address] Tg Fierro Sodium [Moles/Vol] 139 mmol/L Normal 136-145 [facility] Comment on above: Performed By: #### C MP #### [facility] [address] [address] [address] Tg Fierro Urea nitrogen [Mass/Vol] 13.0 mg/dL Normal 7.0-18.0 [facility] Comment on above: Performed By: #### C MP #### [facility] [address] [address] [address] Tg Fierro Urea nitrogen/Creatinine [Mass ratio] 15.1 mg/mg Normal [facility] Comment on above: Performed By: #### C MP #### [facility] [address] [address] [address] Tg Fierro PROTIMEon 09-24-2022 INR Coag (PPP) [Relative time] 1.35 {INR} Normal [facility] Comment on above: Performed By: #### P T #### [facility] [address] [address] [address] Tg Fierro INR GUIDELINES SEE BELOW Normal [facility] Comment on above: Result Comment: LAURENCE RED INR: 2.0 - 3.0 CONDITIONS NOT LISTED BELOW 2.5 - 3.5 FOR PROSTHETIC HEART VALVE REPLACEMENT 2.5 - 3.5 RECURRENT THROMBOSIS Performed By: #### P T #### [facility] [address] [place] [address] Dr. Tg Fierro PT Coag (PPP) [Time] 14.1 s Critically high 9.0-11.6 [facility] Comment on above: Performed By: #### P T #### [facility] [address] [place] [address] Dr. Tg Fier[facility] 8 mm/hr Normal <=30 [facility] Comment on above: Performed By: #### C MP #### [facility] [address] [place] [address] Dr. Tg Fierro PROTIMEon 09-09-2022 INR Coag (PPP) [Relative time] 1.23 {INR} Normal [facility] Comment on above: Performed By: #### P T #### [facility] [address] [place] [address] Dr. Tg Fierro INR GUIDELINES SEE BELOW Normal [facility] Comment on above: Result Comment: LAURENCE RED INR: 2.0 - 3.0 CONDITIONS NOT LISTED BELOW 2.5 - 3.5 FOR PROSTHETIC HEART VALVE REPLACEMENT 2.5 - 3.5 RECURRENT THROMBOSIS Performed By: #### P T #### [facility] [address] [place] [address] Dr. Tg Fierro PT Coag (PPP) [Time] 12.9 s Critically high 9.0-11.6 [facility] Comment on above: Performed By: #### P T #### [facility] [address] [place] [address] Dr. Tg Fierro ECHOCARDIO M/2D COMPLETEon 0 09-02-2022 ECHOCARDIO M/2D COMPLETE Patient: WILDA ESN Exam Date: 09/02/2022 : 1945 Gender:F Ordering : DR JAYME PEREZ . Admission #: [id number] Family : Order #: [id number] CLICK HERE TO VIEW EXAM ECHOCARDIOGRAM REPORT [...] Bender M.D. on 09/03/2022 at 17:25 Normal [facility] GLYCOHEMOGLOBIN A1Con 2022 ADA RECOMMENDATION SEE BELOW Normal [facility] Comment on above: Result Comment: ADA RECOMMENDED LIMIT 4.0 - 6.0 ADA THERAPEUTIC TARGET < 7.0 ACTION SUGGESTED > 7.0 Performed By: #### A 1C #### [facility] [address] [address] [address] Tg Fierro Glucose [Mass/Vol] 148 mg/dL Normal [facility] Comment on above: Performed By: #### A 1C #### [facility] [address] [place] [address] Dr. Tg Fierro HbA1c (Bld) [Mass fraction] 6.8 % Critically high 4.5-6.2 [facility] Comment on above: Performed By: #### A 1C #### [facility] [address] [place] [address] Dr. Tg Fierro CBC AUTO DIFFon 08-05-2022 BASO # 0.1 103/ul Normal 0.0-0.1 [facility] Comment on above: Performed By: #### C BC #### [facility] [address] [place] [address] Dr. Tg Fierro Basophils/100 WBC (Bld) 0.8 % Normal 0.2-2.0 [facility] Comment on above: Performed By: #### C BC #### [facility] [address] [place] [address] Dr. Tg Fierro EO # 0.5 103/ul Normal 0.0-0.7 [facility] Comment on above: Performed By: #### C BC #### [facility] [address] [place] [address] Dr. Tg Fierro Eosinophils/100 WBC (Bld) 7.3 % Critically high 0.9-7.0 [facility] Comment on above: Performed By: #### C BC #### [facility] [address] [place] [address] Dr. Tg Fierro Erythrocyte distribution width (RBC) [Ratio] 13.4 % Normal 11.0-15.0 [facility] Comment on above: Performed By: #### C BC #### [facility] [address] [place] [address] Dr. Tg Fierro Hematocrit (Bld) [Volume fraction] 37.1 % Normal 36.0-48.0 [facility] Comment on above: Performed By: #### C BC #### [facility] [address] [place] [address] Dr. Tg Fierro Hemoglobin (Bld) [Mass/Vol] 12.9 g/dL Normal 12.0-16.0 [facility] Comment on above: Performed By: #### C BC #### [facility] [address] [place] [address] Dr. Tg Fierro IG # 0.03 10e3/ul Normal 0.00-0.03 [facility] Comment on above: Performed By: #### C BC #### [facility] [address] [place] [address] Dr. Tg Fierro IG % 0.5 % Normal 0.0-0.5 [facility] Comment on above: Performed By: #### C BC #### [facility] [address] [place] [address] Dr. Tg Fierro LYMPH # 2.3 103/ul Normal 1.2-3.8 [facility] Comment on above: Performed By: #### C BC #### [facility] [address] [place] [address] Dr. Tg Fierro Lymphocytes/100 WBC (Bld) 34.9 % Normal 20.5-60.0 [facility] Comment on above: Performed By: #### C BC #### [facility] [address] [place] [address] Dr. Tg Fierro MANUAL DIFF REQ NO Normal [facility] Comment on above: Performed By: #### C BC #### [facility] [address] [place] [address] Dr. Tg Fierro MCH (RBC) [Entitic mass] 31.0 pg Normal 26.7-34.0 [facility] Comment on above: Performed By: #### C BC #### [facility] [address] [place] [address] Dr. Tg Fierro MCHC (RBC) [Mass/Vol] 34.8 g/dL Normal 29.9-35.2 [facility] Comment on above: Performed By: #### C BC #### [facility] [address] [place] [address] Dr. Tg Fierro MCV (RBC) [Entitic vol] 89.2 fL Normal 81.0-99.0 [facility] Comment on above: Performed By: #### C BC #### [facility] [address] [place] [address] Dr. Tg Fierro MONO # 0.4 103/ul Normal 0.3-0.8 [facility] Comment on above: Performed By: #### C BC #### [facility] [address] [place] [address] Dr. Tg Fierro Monocytes/100 WBC (Bld) 6.1 % Normal 1.7-12.0 [facility] Comment on above: Performed By: #### C BC #### [facility] [address] [place] [address] Dr. Tg Fierro NEUT # 3.3 103/ul Normal 1.4-6.5 [facility] Comment on above: Performed By: #### C BC #### [facility] [address] [place] [address] Dr. Tg Fierro Neutrophils/100 WBC (Bld) 50.4 % Normal 43.0-75.0 [facility] Comment on above: Performed By: #### C BC #### [facility] [address] [place] [address] Dr. Tg Fierro Platelet mean volume (Bld) [Entitic vol] 8.6 fL Critically low 9.5-13.5 [facility] Comment on above: Performed By: #### C BC #### [facility] [address] [place] [address] Dr. Tg Fierro PLT 336 103/ul Normal 150-450 [facility] Comment on above: Performed By: #### C BC #### [facility] [address] [place] [address] Dr. Tg Fierro RBC 4.16 106/ul Critically low 4.20-5.40 [facility] Comment on above: Performed By: #### C BC #### [facility] [address] [place] [address] Dr. Tg Fierro WBC 6.4 103/ul Normal 4.0-11.0 [facility] Comment on above: Performed By: #### C BC #### [facility] [address] [place] [address] Dr. Tg Fierro PROF 14(COMP METB)on 023 Albumin [Mass/Vol] 3.9 g/dL Normal 3.4-5.0 [facility] Comment on above: Performed By: #### P T #### [facility] [address] [place] [address] Dr. Tg Fierro Albumin/Globulin [Mass ratio] 1.3 {ratio} Normal [facility] Comment on above: Performed By: #### P T #### [facility] [address] [place] [address] Dr. Tg Fierro ALP [Catalytic activity/Vol] 60 U/L Normal 46-116 [facility] Comment on above: Performed By: #### P T #### [facility] [address] [place] [address] Dr. Tg Fierro ALT [Catalytic activity/Vol] 21 U/L Normal 14-59 [facility] Comment on above: Performed By: #### P T #### [facility] [address] [place] [address] Dr. Tg Fierro Anion gap [Moles/Vol] 15.2 mmol/L Normal [facility] Comment on above: Performed By: #### P T #### [facility] [address] [place] [address] Dr. Tg Fierro AST [Catalytic activity/Vol] 14 U/L Critically low 15-37 [facility] Comment on above: Performed By: #### P T #### [facility] [address] [place] [address] Dr. Tg Fierro Bilirubin [Mass/Vol] 0.4 mg/dL Normal 0.2-1.0 [facility] Comment on above: Performed By: #### P T #### [facility] [address] [place] [address] Dr. Tg Fierro Calcium [Mass/Vol] 9.3 mg/dL Normal 8.5-10.1 [facility] Comment on above: Performed By: #### P T #### [facility] [address] [address] [address] Tg Fierro Chloride [Moles/Vol] 102 mmol/L Normal 98-107 [facility] Comment on above: Performed By: #### P T #### [facility] [address] [address] [address] Tg Fierro CO2 [Moles/Vol] 26.8 mmol/L Normal 21.0-32.0 [facility] Comment on above: Performed By: #### P T #### [facility] [address] [place] [address] Dr. Tg Fierro Creatinine [Mass/Vol] 0.74 mg/dL Normal 0.55-1.02 [facility] Comment on above: Performed By: #### P T #### [facility] [address] [place] [address] Dr. Tg Fierro EGFR-AF SRI LANKAN >60 Normal >=60 [facility] Comment on above: Performed By: #### P T #### [facility] [address] [place] [address] Dr. Tg Fierro EGFR-NON AF SRI LANKAN >60 Normal >=60 [facility] Comment on above: Performed By: #### P T #### [facility] [address] [place] [address] Dr. Tg Fierro Globulin (S) [Mass/Vol] 3.1 g/dL Normal [facility] Comment on above: Performed By: #### P T #### [facility] [address] [place] [address] Dr. Tg Fierro Glucose [Mass/Vol] 148 mg/dL Critically high 74-106 [facility] Comment on above: Performed By: #### P T #### [facility] [address] [place] [address] Dr. Tg Fierro Potassium [Moles/Vol] 4.0 mmol/L Normal 3.5-5.1 [facility] Comment on above: Performed By: #### P T #### [facility] [address] [address] [address] Tg Fierro Protein [Mass/Vol] 7.0 g/dL Normal 6.4-8.2 [facility] Comment on above: Performed By: #### P T #### [facility] [address] [address] [address] Tg Fierro Sodium [Moles/Vol] 140 mmol/L Normal 136-145 [facility] Comment on above: Performed By: #### P T #### [facility] [address] [place] [address] Dr. Tg Fierro Urea nitrogen [Mass/Vol] 12.0 mg/dL Normal 7.0-18.0 [facility] Comment on above: Performed By: #### P T #### [facility] [address] [place] [address] Dr. Tg Fierro Urea nitrogen/Creatinine [Mass ratio] 16.2 mg/mg Normal [facility] Comment on above: Performed By: #### P T #### [facility] [address] [place] [address] Dr. Tg Fierro [facility] 30 mm/hr Normal <=30 [facility] Comment on above: Performed By: #### S EDR #### [facility] Laboratory [address] [place] [address] Dr. Tg Fierro CBC AUTO DIFFon 04-15-2022 BASO # 0.1 103/ul Normal 0.0-0.1 [facility] Comment on above: Performed By: #### C BC #### [facility] [address] [place] [address] Dr. Tg Fierro Basophils/100 WBC (Bld) 0.6 % Normal 0.2-2.0 [facility] Comment on above: Performed By: #### C BC #### [facility] [address] [place] [address] Dr. Tg Fierro EO # 0.2 103/ul Normal 0.0-0.7 [facility] Comment on above: Performed By: #### C BC #### [facility] [address] [place] [address] Dr. Tg Fierro Eosinophils/100 WBC (Bld) 3.1 % Normal 0.9-7.0 [facility] Comment on above: Performed By: #### C BC #### [facility] [address] [place] [address] Dr. Tg Fierro Erythrocyte distribution width (RBC) [Ratio] 13.6 % Normal 11.0-15.0 [facility] Comment on above: Performed By: #### C BC #### [facility] [address] [place] [address] Dr. Tg Fierro Hematocrit (Bld) [Volume fraction] 42.3 % Normal 36.0-48.0 [facility] Comment on above: Performed By: #### C BC #### [facility] [address] [place] [address] Dr. Tg Fierro Hemoglobin (Bld) [Mass/Vol] 13.2 g/dL Normal 12.0-16.0 [facility] Comment on above: Performed By: #### C BC #### [facility] [address] [place] [address] Dr. Tg Fierro IG # 0.04 10e3/ul Critically high 0.00-0.03 [facility] Comment on above: Performed By: #### C BC #### [facility] [address] [place] [address] Dr. Tg Fierro IG % 0.5 % Normal 0.0-0.5 [facility] Comment on above: Performed By: #### C BC #### [facility] [address] [place] [address] Dr. Tg Fierro LYMPH # 2.5 103/ul Normal 1.2-3.8 [facility] Comment on above: Performed By: #### C BC #### [facility] [address] [place] [address] Dr. Tg Fierro Lymphocytes/100 WBC (Bld) 31.6 % Normal 20.5-60.0 [facility] Comment on above: Performed By: #### C BC #### [facility] [address] [place] [address] Dr. Tg Fierro MANUAL DIFF REQ NO Normal [facility] Comment on above: Performed By: #### C BC #### [facility] [address] [place] [address] Dr. Tg Fierro MCH (RBC) [Entitic mass] 30.3 pg Normal 26.7-34.0 [facility] Comment on above: Performed By: #### C BC #### [facility] [address] [place] [address] Dr. Tg Fierro MCHC (RBC) [Mass/Vol] 31.2 g/dL Normal 29.9-35.2 [facility] Comment on above: Performed By: #### C BC #### [facility] [address] [place] [address] Dr. Tg Fierro MCV (RBC) [Entitic vol] 97.0 fL Normal 81.0-99.0 [facility] Comment on above: Performed By: #### C BC #### [facility] [address] [place] [address] Dr. Tg Fierro MONO # 0.5 103/ul Normal 0.3-0.8 [facility] Comment on above: Performed By: #### C BC #### [facility] [address] [place] [address] Dr. Tg Fierro Monocytes/100 WBC (Bld) 6.3 % Normal 1.7-12.0 [facility] Comment on above: Performed By: #### C BC #### [facility] [address] [place] [address] Dr. Tg Fierro NEUT # 4.5 103/ul Normal 1.4-6.5 [facility] Comment on above: Performed By: #### C BC #### [facility] [address] [place] [address] Dr. Tg Fierro Neutrophils/100 WBC (Bld) 57.9 % Normal 43.0-75.0 [facility] Comment on above: Performed By: #### C BC #### [facility] [address] [place] [address] Dr. Tg Fierro Platelet mean volume (Bld) [Entitic vol] 8.6 fL Critically low 9.5-13.5 [facility] Comment on above: Performed By: #### C BC #### [facility] [address] [place] [address] Dr. Tg Fierro PLT 295 103/ul Normal 150-450 [facility] Comment on above: Performed By: #### C BC #### [facility] [address] [place] [address] Dr. Tg Fierro RBC 4.36 106/ul Normal 4.20-5.40 [facility] Comment on above: Performed By: #### C BC #### [facility] [address] [place] [address] Dr. Tg Fierro WBC 7.8 103/ul Normal 4.0-11.0 [facility] Comment on above: Performed By: #### C BC #### [facility] [address] [place] [address] Dr. Tg Fierro PROF 14(COMP METB)on 022 Albumin [Mass/Vol] 4.5 g/dL Normal 3.4-5.0 [facility] Comment on above: Performed By: #### C MP #### [facility] [address] [place] [address] Dr. Tg Fierro Albumin/Globulin [Mass ratio] 1.5 {ratio} Normal [facility] Comment on above: Performed By: #### C MP #### [facility] [address] [place] [address] Dr. Tg Fierro ALP [Catalytic activity/Vol] 62 U/L Normal 46-116 [facility] Comment on above: Performed By: #### C MP #### [facility] [address] [place] [address] Dr. Tg Fierro ALT [Catalytic activity/Vol] 25 U/L Normal 14-59 [facility] Comment on above: Performed By: #### C MP #### [facility] [address] [place] [address] Dr. Tg Fierro Anion gap [Moles/Vol] 10.6 mmol/L Normal [facility] Comment on above: Performed By: #### C MP #### [facility] [address] [address] [address] Tg Fierro AST [Catalytic activity/Vol] 12 U/L Critically low 15-37 [facility] Comment on above: Performed By: #### C MP #### [facility] [address] [address] [address] Tg Fierro Bilirubin [Mass/Vol] 0.5 mg/dL Normal 0.2-1.0 [facility] Comment on above: Performed By: #### C MP #### [facility] [address] [place] [address] Dr. Tg Fierro Calcium [Mass/Vol] 9.8 mg/dL Normal 8.5-10.1 [facility] Comment on above: Performed By: #### C MP #### [facility] [address] [address] [address] Tg Fierro Chloride [Moles/Vol] 102 mmol/L Normal 98-107 [facility] Comment on above: Performed By: #### C MP #### [facility] [address] [place] [address] Dr. Tg Fierro CO2 [Moles/Vol] 31.8 mmol/L Normal 21.0-32.0 [facility] Comment on above: Performed By: #### C MP #### [facility] [address] [address] [address] Tg Fierro Creatinine [Mass/Vol] 0.88 mg/dL Normal 0.55-1.02 [facility] Comment on above: Performed By: #### C MP #### [facility] [address] [address] [address] Tg Fierro EGFR-AF SRI LANKAN >60 Normal >=60 [facility] Comment on above: Performed By: #### C MP #### [facility] [address] [address] [address] Tg Fierro EGFR-NON AF SRI LANKAN >60 Normal >=60 [facility] Comment on above: Performed By: #### C MP #### [facility] [address] [address] [address] Tg Fierro Globulin (S) [Mass/Vol] 3.1 g/dL Normal [facility] Comment on above: Performed By: #### C MP #### [facility] [address] [address] [address] Tg Fierro Glucose [Mass/Vol] 187 mg/dL Critically high 74-106 [facility] Comment on above: Performed By: #### C MP #### [facility] [address] [address] [address] Tg Fierro Potassium [Moles/Vol] 4.4 mmol/L Normal 3.5-5.1 [facility] Comment on above: Performed By: #### C MP #### [facility] [address] [place] [address] Dr. Tg Fierro Protein [Mass/Vol] 7.6 g/dL Normal 6.4-8.2 [facility] Comment on above: Performed By: #### C MP #### [facility] [address] [place] [address] Dr. Tg Fierro Sodium [Moles/Vol] 140 mmol/L Normal 136-145 [facility] Comment on above: Performed By: #### C MP #### [facility] [address] [place] [address] Dr. Tg Fierro Urea nitrogen [Mass/Vol] 14.0 mg/dL Normal 7.0-18.0 [facility] Comment on above: Performed By: #### C MP #### [facility] [address] [place] [address] Dr. Tg Fierro Urea nitrogen/Creatinine [Mass ratio] 15.9 mg/mg Normal [facility] Comment on above: Performed By: #### C MP #### [facility] [address] [address] [address] [facility] mm/hr Normal <=30 [facility] Comment on above: Performed By: #### S EDR #### [facility] [address] [address] [address] Tg Fierro CBC AUTO DIFFon 02-07-2022 BASO # 0.0 103/ul Normal 0.0-0.1 [facility] Comment on above: Performed By: #### P T #### [facility] [address] [place] [address] Dr. Tg Fierro Basophils/100 WBC (Bld) 0.6 % Normal 0.2-2.0 [facility] Comment on above: Performed By: #### P T #### [facility] [address] [place] [address] Dr. Tg Fierro EO # 0.4 103/ul Normal 0.0-0.7 [facility] Comment on above: Performed By: #### P T #### [facility] [address] [place] [address] Dr. Tg Fierro Eosinophils/100 WBC (Bld) 5.4 % Normal 0.9-7.0 [facility] Comment on above: Performed By: #### P T #### [facility] [address] [place] [address] Dr. Tg Fierro Erythrocyte distribution width (RBC) [Ratio] 13.5 % Normal 11.0-15.0 [facility] Comment on above: Performed By: #### P T #### [facility] [address] [place] [address] Dr. Tg Fierro Hematocrit (Bld) [Volume fraction] 39.4 % Normal 36.0-48.0 [facility] Comment on above: Performed By: #### P T #### [facility] [address] [place] [address] Dr. Tg Fierro Hemoglobin (Bld) [Mass/Vol] 12.8 g/dL Normal 12.0-16.0 [facility] Comment on above: Performed By: #### P T #### [facility] [address] [place] [address] Dr. Tg Fierro IG # 0.02 10e3/ul Normal 0.00-0.03 [facility] Comment on above: Performed By: #### P T #### [facility] [address] [place] [address] Dr. Tg Fierro IG % 0.3 % Normal 0.0-0.5 [facility] Comment on above: Performed By: #### P T #### [facility] [address] [place] [address] Dr. Tg Fierro LYMPH # 2.4 103/ul Normal 1.2-3.8 [facility] Comment on above: Performed By: #### P T #### [facility] [address] [place] [address] Dr. Tg Fierro Lymphocytes/100 WBC (Bld) 36.2 % Normal 20.5-60.0 [facility] Comment on above: Performed By: #### P T #### [facility] [address] [place] [address] Dr. Tg Fierro MANUAL DIFF REQ NO Normal [facility] Comment on above: Performed By: #### P T #### [facility] [address] [place] [address] Dr. Tg Fierro MCH (RBC) [Entitic mass] 31.0 pg Normal 26.7-34.0 [facility] Comment on above: Performed By: #### P T #### [facility] [address] [place] [address] Dr. Tg Fierro MCHC (RBC) [Mass/Vol] 32.5 g/dL Normal 29.9-35.2 [facility] Comment on above: Performed By: #### P T #### [facility] [address] [place] [address] Dr. Tg Fierro MCV (RBC) [Entitic vol] 95.4 fL Normal 81.0-99.0 [facility] Comment on above: Performed By: #### P T #### [facility] [address] [place] [address] Dr. Tg Fierro MONO # 0.5 103/ul Normal 0.3-0.8 [facility] Comment on above: Performed By: #### P T #### [facility] [address] [address] [address] Tg Fierro Monocytes/100 WBC (Bld) 8.0 % Normal 1.7-12.0 [facility] Comment on above: Performed By: #### P T #### [facility] [address] [address] [address] Tg Fierro NEUT # 3.3 103/ul Normal 1.4-6.5 [facility] Comment on above: Performed By: #### P T #### [facility] [address] [address] [address] Tg Fierro Neutrophils/100 WBC (Bld) 49.5 % Normal 43.0-75.0 [facility] Comment on above: Performed By: #### P T #### [facility] [address] [place] [address] Dr. Tg Fierro Platelet mean volume (Bld) [Entitic vol] 8.7 fL Critically low 9.5-13.5 [facility] Comment on above: Performed By: #### P T #### [facility] [address] [place] [address] Dr. Tg Fierro PLT 276 103/ul Normal 150-450 [facility] Comment on above: Performed By: #### P T #### [facility] [address] [place] [address] Dr. Tg Fierro RBC 4.13 106/ul Critically low 4.20-5.40 [facility] Comment on above: Performed By: #### P T #### [facility] [address] [place] [address] Dr. Tg Fierro WBC 6.7 103/ul Normal 4.0-11.0 [facility] Comment on above: Performed By: #### P T #### [facility] [address] [place] [address] Dr. Tg Fierro GLYCOHEMOGLOBIN A1Con 2021 ADA RECOMMENDATION SEE BELOW Normal [facility] Comment on above: Result Comment: ADA RECOMMENDED LIMIT 4.0 - 6.0 ADA THERAPEUTIC TARGET < 7.0 ACTION SUGGESTED > 7.0 Performed By: #### A 1C #### [facility] [address] [place] [address] Dr. Tg Fierro Glucose [Mass/Vol] 151 mg/dL Normal [facility] Comment on above: Performed By: #### A 1C #### [facility] [address] [address] [address] Tg Fierro HbA1c (Bld) [Mass fraction] 6.9 % Critically high 4.5-6.2 [facility] Comment on above: Performed By: #### A 1C #### [facility] [address] [address] [address] Tg Fierro PROF 14(COMP METB)on 022 Albumin [Mass/Vol] 3.8 g/dL Normal 3.4-5.0 [facility] Comment on above: Performed By: #### P T #### [facility] [address] [place] [address] Dr. Tg Fierro Albumin/Globulin [Mass ratio] 1.3 {ratio} Normal [facility] Comment on above: Performed By: #### P T #### [facility] [address] [place] [address] Dr. Tg Fierro ALP [Catalytic activity/Vol] 43 U/L Critically low 46-116 [facility] Comment on above: Performed By: #### P T #### [facility] [address] [place] [address] Dr. Tg Fierro ALT [Catalytic activity/Vol] 19 U/L Normal 14-59 [facility] Comment on above: Performed By: #### P T #### [facility] [address] [place] [address] Dr. Tg Fierro Anion gap [Moles/Vol] 13.7 mmol/L Normal [facility] Comment on above: Performed By: #### P T #### [facility] [address] [place] [address] Dr. Tg Fierro AST [Catalytic activity/Vol] 11 U/L Critically low 15-37 [facility] Comment on above: Performed By: #### P T #### [facility] [address] [address] [address] Tg Fierro Bilirubin [Mass/Vol] 0.4 mg/dL Normal 0.2-1.0 [facility] Comment on above: Performed By: #### P T #### [facility] [address] [address] [address] Tg Fierro Calcium [Mass/Vol] 9.1 mg/dL Normal 8.5-10.1 [facility] Comment on above: Performed By: #### P T #### [facility] [address] [address] [address] Tg Fierro Chloride [Moles/Vol] 104 mmol/L Normal 98-107 [facility] Comment on above: Performed By: #### P T #### [facility] [address] [place] [address] Dr. Tg Fierro CO2 [Moles/Vol] 28.5 mmol/L Normal 21.0-32.0 [facility] Comment on above: Performed By: #### P T #### [facility] [address] [place] [address] Dr. Tg Fierro Creatinine [Mass/Vol] 0.77 mg/dL Normal 0.55-1.02 [facility] Comment on above: Performed By: #### P T #### [facility] [address] [place] [address] Dr. Tg Fierro EGFR-AF SRI LANKAN >60 Normal >=60 [facility] Comment on above: Performed By: #### P T #### [facility] [address] [place] [address] Dr. Tg Fierro EGFR-NON AF SRI LANKAN >60 Normal >=60 [facility] Comment on above: Performed By: #### P T #### [facility] [address] [place] [address] Dr. Tg Fierro Globulin (S) [Mass/Vol] 3.0 g/dL Normal [facility] Comment on above: Performed By: #### P T #### [facility] [address] [place] [address] Dr. Tg Fierro Glucose [Mass/Vol] 124 mg/dL Critically high 74-106 [facility] Comment on above: Performed By: #### P T #### [facility] [address] [address] [address] Tg Fierro Potassium [Moles/Vol] 4.2 mmol/L Normal 3.5-5.1 [facility] Comment on above: Performed By: #### P T #### [facility] [address] [address] [address] Tg Fierro Protein [Mass/Vol] 6.8 g/dL Normal 6.4-8.2 [facility] Comment on above: Performed By: #### P T #### [facility] [address] [place] [address] Dr. Tg Fierro Sodium [Moles/Vol] 142 mmol/L Normal 136-145 [facility] Comment on above: Performed By: #### P T #### [facility] [address] [address] [address] Tg Fierro Urea nitrogen [Mass/Vol] 12.0 mg/dL Normal 7.0-18.0 [facility] Comment on above: Performed By: #### P T #### [facility] [address] [place] [address] Dr. Tg Fierro Urea nitrogen/Creatinine [Mass ratio] 15.6 mg/mg Normal [facility] Comment on above: Performed By: #### P T #### [facility] [address] [place] [address] Dr. Tg Fierro [facility]ATE 8 mm/hr Normal <=30 [facility] Comment on above: Performed By: #### C MP #### [facility] [address] [place] [address] Dr. Tg Fierro COVID Quick Testingon 2020 Result Positive [facility] Other Vital Signs Date Time Vital Sign Value Performing Clinician Facility 02-14-2025 15:00-0400 Diastolic blood pressure 65 mm[Hg] Jayme Perez MD Work Phone: [facility] 02-14-2025 15:00-0400 Heart rate 81 /min Jayme Perez MD Work Phone: [facility] 02-14-2025 15:00-0400 Respiratory rate 16 /min Jayme Perez MD Work Phone: [facility] 02-14-2025 15:00-0400 SaO2% (BldA) [Mass fraction] 98 % Jayme Perez MD Work Phone: [facility] 02-14-2025 15:00-0400 Systolic blood pressure 116 mm[Hg] Jayme Perez MD Work Phone: [facility] 02-14-2025 13:03-0400 Body height 160.02 cm Jayme Perez MD Work Phone: [facility] 02-14-2025 13:03-0400 Body temperature 98 [degF] Jayme Perez MD Work Phone: [facility] 02-14-2025 13:03-0400 Body weight 51.34 kg Jayem Perez MD Work Phone: [facility] 01-06-2025 11:39-0400 Body height 160 cm Jayme Perez MD Work Phone: [facility] 01-06-2025 11:39-0400 Body mass index (BMI) [Ratio] 22.5 kg/m2 Jayme Perez MD Work Phone: [facility] 01-06-2025 11:39-0400 Body weight 57.61 kg Jayme Perez MD Work Phone: [facility] 12-22-2024 11:35-0400 Body height 160 cm Jayme Perez MD Work Phone: [facility] 12-22-2024 11:35-0400 Body mass index (BMI) [Ratio] 22.5 kg/m2 Jayme Perez MD Work Phone: [facility] 12-22-2024 11:35-0400 Body weight 57.61 kg Jayme Perez MD Work Phone: [facility] 11-04-2024 13:54-0400 Body height 160 cm Jayme Perez MD Work Phone: [facility] 11-04-2024 13:54-0400 Body mass index (BMI) [Ratio] 22.5 kg/m2 Jayme Perez MD Work Phone: [facility] 11-04-2024 13:54-0400 Body weight 57.61 kg Jayme Perez MD Work Phone: [facility] 11-04-2024 13:54-0400 Diastolic blood pressure 76 mm[Hg] Jayme Perez MD Work Phone: [facility] 11-04-2024 13:54-0400 Heart rate 100 /min Jayme Perez MD Work Phone: [facility] 11-04-2024 13:54-0400 SaO2% (BldA) [Mass fraction] 99 % Jayme Perez MD Work Phone: [facility] 11-04-2024 13:54-0400 Systolic blood pressure 122 mm[Hg] Jayme Perez MD Work Phone: [facility] 07-12-2024 11:03-0500 Diastolic blood pressure 66 mm[Hg] Eugenia SHEPHERD [facility] 07-12-2024 11:03-0500 Heart rate 77 /min Eugenia SHEPHERD [facility] 07-12-2024 11:03-0500 Systolic blood pressure 131 mm[Hg] Eugenia SHEPHERD [facility] 04-15-2024 14:16-0400 Body height 160 cm Jayme Perez MD Work Phone: [facility] 04-15-2024 14:16-0400 Body mass index (BMI) [Ratio] 21.79 kg/m2 Jayme Perez MD Work Phone: [facility] 04-15-2024 14:16-0400 Body weight 55.79 kg Jayme Perez MD Work Phone: [facility] 04-15-2024 14:16-0400 Diastolic blood pressure 70 mm[Hg] Jayme Perez MD Work Phone: [facility] 04-15-2024 14:16-0400 Heart rate 87 /min Jayme Perez MD Work Phone: [facility] 04-15-2024 14:16-0400 SaO2% (BldA) [Mass fraction] 98 % Jayme Perez MD Work Phone: [facility] 04-15-2024 14:16-0400 Systolic blood pressure 120 mm[Hg] Jayme Perez MD Work Phone: [facility] 10-14-2023 09:09-0400 Body temperature 98.6 [degF] Eugenia CORA [facility] 10-14-2023 09:09-0400 Diastolic blood pressure 61 mm[Hg] Eugenia SHEPHERD [facility] 10-14-2023 09:09-0400 Heart rate 80 /min Eugenia CORA [facility] 10-14-2023 09:09-0400 Respiratory rate 16 /min Eugenia CORA [facility] 10-14-2023 09:09-0400 Systolic blood pressure 115 mm[Hg] Eugenia SHEPHERD [facility] 08-13-2023 10:47-0500 Blood Pressure Location Renato SANTACRUZ [facility] 08-13-2023 10:47-0500 Diastolic blood pressure 62 mm[Hg] Renato SANTACRUZ [facility] 08-13-2023 10:47-0500 Heart rate 82 /min Renato SANTACRUZ [facility] 08-13-2023 10:47-0500 Respiratory rate 16 /min Renato SANTACRUZ [facility] 08-13-2023 10:47-0500 Systolic blood pressure 105 mm[Hg] Renato SANTACRUZ [facility] 08-07-2023 09:48-0500 Body height 160 cm Jayme Perez MD Work Phone: [facility] 08-07-2023 09:48-0500 Body mass index (BMI) [Ratio] 24.45 kg/m2 Jayme Perez MD Work Phone: [facility] 08-07-2023 09:48-0500 Body weight 62.6 kg Jayme Perez MD Work Phone: [facility] 08-07-2023 09:48-0500 Heart rate 57 /min Jayme Perez MD Work Phone: [facility] 08-07-2023 09:48-0500 SaO2% (BldA) [Mass fraction] 98 % Jayme Perez MD Work Phone: [facility] 07-25-2023 09:20-0500 Body height 160.02 cm Lou Glover Other [employer] Other 07-25-2023 09:20-0500 Body mass index (BMI) [Ratio] 23.91 kg/m2 Lou Glover Other [employer] Other 07-25-2023 09:20-0500 Body temperature 97.7 [degF] Lou Glover Other [employer] Other 07-25-2023 09:20-0500 Body weight 61.24 kg Lou Glover Other [employer] Other 07-25-2023 09:20-0500 Diastolic blood pressure 74 mm[Hg] Lou Glover Other [employer] Other 07-25-2023 09:20-0500 Respiratory rate 18 /min Lou Glover Other [employer] Other 07-25-2023 09:20-0500 SaO2% (BldA) [Mass fraction] 96 % Lou Glover Other [employer] Other 07-25-2023 09:20-0500 Systolic blood pressure 120 mm[Hg] Lou Glover Other [employer] Other 03-26-2023 13:15-0400 Body height 160.02 cm MD Jayme Perez Work Phone: [facility] 03-26-2023 13:15-0400 Body temperature 98.2 [degF] MD Jayme Perez Work Phone: [facility] 03-26-2023 13:15-0400 Body weight 66 kg MD Jayme Perez Work Phone: [facility] 03-26-2023 13:15-0400 Diastolic blood pressure 71 mm[Hg] MD Jayme Perez Work Phone: [facility] 03-26-2023 13:15-0400 Heart rate 87 /min MD Jayme Perez Work Phone: [facility] 03-26-2023 13:15-0400 Respiratory rate 16 /min MD Jayme Perez Work Phone: [facility] 03-26-2023 13:15-0400 SaO2% (BldA) [Mass fraction] 97 % MD Jayme Perez Work Phone: [facility] 03-26-2023 13:15-0400 Systolic blood pressure 117 mm[Hg] MD Jayme Perez Work Phone: [facility] 05-21-2021 13:15-0500 Body height 160.02 cm Astrid Ryanault Other [employer] Other 05-21-2021 13:15-0500 Body mass index (BMI) [Ratio] 23.91 kg/m2 Astrid Ryanault Other [employer] Other 05-21-2021 13:15-0500 Body temperature 97.3 [degF] Astrid Baker Other [employer] Other 05-21-2021 13:15-0500 Body weight 61.24 kg Astrid Baker Other [employer] Other 05-21-2021 13:15-0500 SaO2% (BldA) [Mass fraction] 94 % Astrid Ryanault Other [employer] Other Encounters Encounter Date Encounter Type Care Provider Facility Start: 02-14-2025 End: 02-14-2025 Admission to same day surgery center Eugenia Venegas MD -Surgery Center [facility] Start: 02-14-2025 End: 02-14-2025 ambulatory Jayme Perez MD Work Phone: [facility] Work Phone: Start: 02-14-2025 End: 02-14-2025 ambulatory Eugenia SHEPHERD Facility:[id number] Start: 02-11-2025 End: 02-11-2025 Patient encounter procedure Kristie Hermosillo [employer] -Electrodiagnostics Work Phone: Start: 02-11-2025 End: 02-11-2025 ambulatory Jayme Perez MD Work Phone: [facility] Work Phone: Start: 02-08-2025 End: 02-08-2025 Telephone encounter Jayme Perez MD Work Phone: [facility] Comment on above: Med Change Request Start: 02-08-2025 End: 02-08-2025 Office outpatient visit 25 minutes Jayme Perez MD Work Phone: [facility] Comment on above: Kidney stone on left side (Primary Dx); Hospital discharge follow-up Start: 02-08-2025 End: 02-08-2025 ambulatory JAYME PEREZ Not Available Start: 02-04-2025 End: 02-04-2025 Clinisync Result Encounter Generic External Data Provider [facility] Unsolicited Start: 02-04-2025 End: 02-04-2025 Clinisync Result Encounter Generic External Data Provider [facility] External [facility] Unsolicited Start: 02-04-2025 End: 02-04-2025 ambulatory Lobito Tapia [facility] Work Phone: Start: 02-04-2025 End: 02-04-2025 Departed Referred Lobito Mejias DO -[facility] Start: 02-02-2025 End: 02-02-2025 Clinisync Result Encounter Generic External Data Provider [facility] External [facility] Unsolicited Start: 02-02-2025 End: 02-02-2025 Clinisync Result Encounter Generic External Data Provider [facility] External [facility] Unsolicited Start: 01-31-2025 End: 02-02-2025 Clinisync Result Encounter Generic External Data Provider [facility] External Department Unsolicited Start: 01-31-2025 End: 02-02-2025 Clinisync Result Encounter Generic External Data Provider [facility] External Department Unsolicited Start: 01-31-2025 End: 01-31-2025 ambulatory Eugenia SHEPHERD Facility:[id number] Start: 01-21-2025 End: 01-21-2025 Clinisync Result Encounter Generic External Data Provider [facility] External Department Unsolicited Start: 01-21-2025 End: 01-21-2025 Clinisync Result Encounter Generic External Data Provider [facility] External [facility] Unsolicited Start: 01-20-2025 End: 01-20-2025 ambulatory JAYME PEREZ Not Available Start: 01-06-2025 End: 01-06-2025 Bamboo flowsheet Jayme Perez MD Work Phone: [facility] Start: 01-06-2025 End: 01-06-2025 Bamboo flowsheet Jayme Perez MD Work Phone: [facility] Start: 01-06-2025 End: 01-06-2025 Clinisync Result Encounter Jayme Perez MD Work Phone: [facility] Unsolicited Start: 01-06-2025 End: 01-06-2025 ambulatory JAYME PEREZ Not Available Start: 01-06-2025 End: 01-06-2025 Office outpatient visit 15 minutes Jayme Perez MD Work Phone: [facility] Comment on above: Vertigo (Primary Dx) Start: 01-05-2025 End: 01-05-2025 Bamboo flowsheet Clara Kelbley SOLAR INSTALLATION MANAGER [facility] Start: 01-05-2025 End: 01-05-2025 Bamboo flowsheet Clara Kelbley SOLAR INSTALLATION MANAGER [facility] Start: 01-05-2025 End: 01-05-2025 ambulatory Clara Kelbley SOLAR INSTALLATION MANAGER [facility] Comment on above: Vertigo (Primary Dx) Start: 12-31-2024 End: 12-31-2024 Bamboo flowsheet Clara Kelbley SOLAR INSTALLATION MANAGER [facility] Start: 12-31-2024 End: 12-31-2024 Bamboo flowsheet Clara Kelbley SOLAR INSTALLATION MANAGER [facility] Start: 12-31-2024 End: 12-31-2024 ambulatory Clara Isaiasbley SOLAR INSTALLATION MANAGER [facility] Comment on above: Vertigo (Primary Dx) Start: 12-29-2024 End: 12-29-2024 Bamboo flowsheet Claradylan Esparzabley SOLAR INSTALLATION MANAGER [facility] Start: 12-29-2024 End: 12-29-2024 Bamboo flowsheet Claradylan Esparzabley SOLAR INSTALLATION MANAGER [facility] Start: 12-29-2024 End: 12-29-2024 ambulatory Clara Isaiasbley SOLAR INSTALLATION MANAGER [facility] Comment on above: Vertigo (Primary Dx) Start: 12-23-2024 End: 12-23-2024 Bamboo flowsheet Joselyn Narvaez PT [facility] Start: 12-23-2024 End: 12-23-2024 Bamboo flowsheet Joselyn Narvaez PT [facility] Start: 12-23-2024 End: 12-23-2024 ambulatory Joselyn Narvaez PT [facility] Comment on above: Vertigo (Primary Dx) Start: 12-22-2024 End: 12-22-2024 Bamboo flowsheet Jayme Perez MD Work Phone: [facility] Start: 12-22-2024 End: 12-22-2024 Bamboo flowsheet Jayme Perez MD Work Phone: [facility] Start: 12-22-2024 End: 12-22-2024 Office outpatient visit 25 minutes Jayme Perez MD Work Phone: [facility] Comment on above: Vertigo (Primary Dx) ; 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 (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); 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; Medication monitoring encounter Start: 12-22-2024 End: 12-22-2024 ambulatory JAYME PEREZ Not Available Start: 12-08-2024 End: 12-08-2024 Clinisync Result Encounter Jayme Perez MD Work Phone: [facility]solicited Start: 12-08-2024 End: 12-08-2024 Clinisync Result Encounter Jayme Perez MD Work Phone: [facility]solic[facility] Start: 11-24-2024 End: 11-24-2024 Clinisync Result Encounter Generic External Data Provider [facility] Unsolicited Start: 11-24-2024 End: 11-24-2024 Clinisync Result Encounter Generic External Data Provider [facility] Unsolicited Start: 11-24-2024 End: 11-24-2024 Orders Only Jayme Perez MD Work Phone: [facility] Start: 11-04-2024 End: 11-04-2024 Bamboo flowsheet Jayme Perez MD Work Phone: [facility] Start: 11-04-2024 End: 11-04-2024 Bamboo flowsheet Jayme Perez MD Work Phone: [facility] Start: 11-04-2024 End: 11-04-2024 Patient encounter procedure Jayme Perez MD Work Phone: [facility] Comment on above: Encounter for Medica re annual wellness exam (Primary Dx); Advance directive discussed with patient; Encounter for screening for other disorder; Screening for alcohol problem; Screening mammogram, encounter for; Iron deficiency; Chronic diastolic heart failure ([facility]/HCC); 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 ([facility]/HCC); Stage 3a chronic kidney disease (HCC) ([facility]/HCC); Age-related osteoporosis without current pathological fracture ([facility]/HCC); Psoriatic arthropathy ([facility]/HCC); Type 2 diabetes mellitus with stage 3a chronic kidney disease, without long-term current use of insulin (HCC) ([facility]/HCC); Type 2 diabetes mellitus with diabetic microalbuminuria, without long-term current use of insulin ([facility]); Immunosuppressed status ([facility]) Start: 11-04-2024 End: 11-04-2024 ambulatory JAYME PEREZ Not Available Start: 11-02-2024 End: 11-02-2024 Clinisync Result Encounter Jayme Perez MD Work Phone: [facility]olic[facility] Start: 11-02-2024 End: 11-02-2024 Clinisync Result Encounter Jayme Perez MD Work Phone: [facility] Unsolicited Start: 11-02-2024 End: 11-02-2024 Orders Only Jayme Perez MD Work Phone: [facility] Comment on above: Type 2 diabetes nancie itus with diabetic microalbuminuria, without long-term current use of insulin (CMS/HCC) (Primary Dx) Start: 10-25-2024 End: 10-25-2024 Clinisync Result Encounter Jayme Perez MD Work Phone: [facility] Unsolicited Start: 10-25-2024 End: 10-25-2024 Clinisync Result Encounter Jayme Perez MD Work Phone: [facility] Unsolicited Start: 10-21-2024 End: 10-21-2024 Bamboo flowsheet Jayme Perez MD Work Phone: [facility] Start: 10-21-2024 End: 10-21-2024 Bamboo flowsheet Jayme Perez MD Work Phone: [facility] Start: 10-21-2024 End: 10-21-2024 Office outpatient visit 25 minutes Jayme Perez MD Work Phone: [facility] Comment on above: Type 2 diabetes nancie itus with stage 3a chronic kidney disease, without long-term current use of insulin (HCC) (CMS/HCC); Stage 3a chronic kidney disease (HCC) (CMS/HCC); Microalbuminuria; 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 (CMS/HCC); group home current use of anticoagulant Start: 10-21-2024 End: 10-21-2024 ambulatory JAYME PEREZ Not Available Start: 10-18-2024 End: 10-18-2024 Clinisync Result Encounter Generic External Data Provider [facility] Unsolicited Start: 10-18-2024 End: 10-18-2024 Clinisync Result Encounter Generic External Data Provider [facility] Unsolicited Start: 10-16-2024 End: 10-16-2024 Refill Jayme Perez MD Work Phone: [facility] Comment on above: Paroxysmal atrial fi brillation ([facility]) Start: 10-09-2024 End: 10-11-2024 Refill Jayme Perez MD Work Phone: [facility] Comment on above: Type 2 diabetes nancie itus with stage 3a chronic kidney disease, without long-term current use of insulin (HCC) ([facility]) Start: 09-27-2024 End: 09-27-2024 Clinisync Result Encounter [...] Department Unsolicited Start: 07-12-2024 End: 07-12-2024 ambulatory Eugenia SHEPHERD Facility:[facility] Start: 07-12-2024 End: 07-12-2024 Patient encounter procedure Eugenia SHEPHERD [facility] Start: 07-01-2024 End: 07-01-2024 Clinisync Result Encounter [...] Paroxysmal atrial fi brillation (CMS/HCC) (Primary Dx); group home current use of anticoagulant; Type 2 diabetes [...] encounter procedure MD Jayme Perez Work Phone: [facility] [address] Work Phone: Start: 03-31-2024 End: 03-31-2024 ambulatory MD Jayme Perez Work Phone: [facility] Work Phone: Start: 03-29-2024 End: 03-29-2024 [...] long-term current use of insulin (HCC) (CMS/HCC) Start: 03-17-2024 End: 03-17-2024 Clinisync Result Encounter Jayme Perez MD Work Phone: [facility]olic[facility] Start: 03-17-2024 End: 03-17-2024 Clinisync Result Encounter Jayme Perez MD Work Phone: [facility] Unsolicited Start: 10-14-2023 End: 10-14-2023 Patient encounter procedure Eugenia SHEPHERD [facility] Start: 08-20-2023 Clinisync Result Encounter Generic External Data Provider [facility] External [facility] Unsolicited Start: 08-20-2023 Clinisync Result Encounter Generic External Data Provider [facility] External [facility] Unsolicited Start: 08-13-2023 End: 08-13-2023 Patient encounter procedure Renato SANTACRUZ [facility] Start: 08-07-2023 End: 08-07-2023 Office outpatient [...] (CMS/HCC); Microalbuminuria; Former smoker; 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, adult; 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; Psoriatic arthropathy (CMS/HCC); Gastroesophageal reflux disease without esophagitis Start: 07-25-2023 End: 07-25-2023 ambulatory Lou Glover Other [facility] [employer] Other Start: 07-25-2023 Office outpatient vi sit 25 minutes Lou Glover [facility] Start: 04-07-2023 End: 04-07-2023 ambulatory MD Jayme Perez Work Phone: [facility] Work Phone: Start: 04-07-2023 End: 04-07-2023 Departed Referred MD Jayme Perez Work Phone: [facility] Start: 03-26-2023 End: 03-26-2023 Patient encounter procedure MD Jayme Perez Work Phone: [facility] Work Phone: Start: 03-20-2023 End: 03-20-2023 Lab Drop off Eugenia SHEPHERD [facility] Start: 03-20-2023 End: 03-20-2023 Patient encounter procedure Eugenia SHEPHERD [facility] Start: 11-11-2022 End: 12-11-[address] [...] 05-21-2021 End: 05-21-2021 ambulatory Astrid Baker Other [employer] Other Start: 05-21-2021 Office outpatient vi sit 15 minutes Astrid Baker [facility] Procedures Date Procedure Procedure Detail Performing Clinician Start: 02-14-2025 Cystoscopy Jayme marroquin MD Work Phone: Start: 02-14-2025 Supine abdominal X-ray Jayme Perez MD Work Phone: Start: 02-04-2025 Urine culture Jayme camargo MD Work Phone: Start: 02-04-2025 URINE CULTURE - [facility] neric External Data Provider Start: 02-02-2025 XR ABDOMEN 1V Generic E xternal Data Provider Start: 01-31-2025 BLOOD CULTURE 2 Generic External Data Provider Start: 01-31-2025 BLOOD CULTURE 1 Generic External Data Provider Start: 01-21-2025 ALL CBC WITH AUTO DIFF Generic External Data Provider Start: 01-06-2025 [facility] PROTHROMBIN T RAMIRO INR W/O COUM Jayme Perez MD Work Phone: Start: 12-08-2024 [facility] PROTHROMBIN T RAMIRO INR W/O COUM Jayme Perez MD Work Phone: Start: 11-24-2024 ALL CBC WITH AUTO DIFF Generic External Data Provider Start: 11-02-2024 [facility] MICROALB CREAT R ATIO RANDOM Jayme Perez MD Work Phone: Start: 10-25-2024 [facility] PROTHROMBIN T RAMIRO INR W/O COUM Jayme Perez MD Work Phone: Start: 10-18-2024 ALL CBC WITH AUTO DIFF Generic External Data Provider Start: 09-27-2024 [facility] PROTHROMBIN T RAMIRO INR W/O COUM Jayme Perez MD Work Phone: Start: 09-13-2024 [facility] PROTHROMBIN T RAMIRO INR W/O COUM Jayme Perez MD Work Phone: Start: 08-17-2024 [facility] PROTHROMBIN T RAMIRO INR W/O COUM Jayme Perez MD Work Phone: Start: 08-04-2024 Computerized ophthal kika imaging optic nerve Felicia Farmer DO Work [...] unspecified type Start: 07-19-2024 [facility] PROTHROMBIN T RAMIRO INR W/O COUM Jayme Perez MD Work Phone: Start: 07-01-2024 [facility] PROTHROMBIN T RAMIRO INR W/O COUM Jayme Perez MD Work Phone: Start: 06-16-2024 ALL CBC WITH AUTO DIFF Generic External Data Provider Start: 05-14-2024 [facility] PROTHROMBIN T RAMIRO INR W/O COUM Jayme Perez MD Work Phone: Start: 04-22-2024 [facility] CREATININE Jayme Perez MD Work Phone: Start: 04-16-2024 ALL CBC WITH AUTO DIFF Generic External Data Provider Start: 04-13-2024 [facility] PROTHROMBIN T RAMIRO INR W/O COUM Jayme Perez MD Work Phone: Start: 03-29-2024 ALL CBC WITH AUTO DIFF Generic External Data Provider Start: 03-17-2024 [facility] PROTHROMBIN T RAMIRO INR W/O COUM Jayme Perez MD Work [...] Generic External Data Provider Start: 08-14-2023 Lithotripsy Eugenia CO [place] Start: 08-26-2019 Extracorporeal shock wave lithotripsy of calculus of kidney Eugenia SHEPHERD Start: 04-12-2016 Cystoscopic laser lithotripsy of ureteric calculus Eugenia SHEPHERD Start: 03-28-2016 Cystoscopic removal of ureteric stent Eugenia SHEPHERD Start: 02-15-2016 Extracorporeal shock wave lithotripsy of calculus of kidney Eugenia COOK Start: 01-16-2016 Endoscopic retrograd e pyelogram Eugenia SHEPHERD Start: 06-29-2013 Extracorporeal shock wave lithotripsy of calculus of kidney Eugenia COOK Start: 09-10-2010 Cystoscopic removal of ureteric stent Eugenia SHEPHERD Start: 08-29-2010 Extracorporeal shock wave lithotripsy of calculus of kidney Eugenia SHEPHERD Start: 08-23-2010 Cystoscopic insertio n of ureteric stent Eugenia SHEPHERD Start: 03-02-2008 Endoscopic retrograd e pyelogram Eugenia SHEPHERD Start: 10-16-2004 Cystoscopic anastomo sis of ureter to bladder with insertion of stent into ureter Eugenia SHEPHERD Abdominal hysterectomy Bhavesh resendiz SANTACRUZ Appendectomy Renato SANTACRUZ Extraction of cataract Bhavesh resendiz SANTACRUZ Partial lobectomy of lung Pa gamal SANTACRUZ Tonsillectomy Renato SANTACRUZ Plan of Treatment Date Care Activity Detail Author Start: 08-04-2026 Glaucoma screening Diabetes: Retinopathy Screening [facility] Start: 12-30-2025 Glaucoma screening Diabetes: Retinopathy Screening [facility] Start: 11-02-2025 Urine screening for protein Diabetes: Urine Protein Screening [facility] Start: 09-13-2025 Pneumococcal Vaccine: 65+ Years (1 of 2 - PCV) Pneumococcal Vaccine: 65+ Years (1 of 2 - PCV) [facility] Comment on above: Postponed from 1951 (Patient Refus ed) Postponed from 04/06 (Patient Refused) Start: 05-19-2025 Glaucoma screening Diabetes: Retinopathy Screening [facility] Start: 04-19-2025 Hemoglobin A1c measurement Diabetes: Hemoglobin A1C [facility] Start: 03-27-2025 End: 10-25-2025 Hemoglobin A1c/Hemoglobin.total in Blood Hemoglobin A1c Lab Routine Type 2 diabetes mellitus with stage 3a chronic kidney disease, without long-term current use of insulin (HCC) ([facility]) Expected: 03/27/2025 (Approximate), Expires: 10/25/2025 [facility] Comment on above: Expected: 03/27/2025 (Approximate), Expi res: 10/25/2025 Start: 03-14-2025 Influenza vaccination [facility] Start: 02-14-2025 [facility] Start: 02-14-2025 [facility] Start: 02-14-2025 Supine abdominal X-ray [facility] Start: 02-14-2025 [facility] Start: 02-08-2025 End: 02-08-2025 Patient encounter procedure 02/08/2025 10:30 AM EDT Office Visit [facility] [address] [place] [address] Jayme Perez MD [address] [place] [address] [facility] Start: 02-04-2025 Bacteria identified in Urine by Culture Urine Culture [facility] Start: 02-04-2025 Urine culture [facility] Start: 02-02-2025 End: 02-02-2025 Patient encounter procedure 02/02/2025 1:30 PM EDT Office Visit [facility] [address] [place] [id number] Felicia Farmer DO [address] [place] [address] [facility] Start: 01-10-2025 Influenza vaccination Influenza Vaccine (#1) [facility] Comment on above: Postponed from 03/14/2024 (Patient Refus ed) Start: 01-10-2025 End: 01-10-2025 ambulatory 01/10/2025 11:00 AM EDT Treatment [facility] [address] [place] [address] Joselyn Narvaez, PT [facility] Start: 01-07-2025 End: 01-07-2025 ambulatory 01/07/2025 12:00 PM EDT Treatment [facility] [address] [place] [address] Clara Whitten, SOLAR INSTALLATION MANAGER [facility] Start: 01-05-2025 End: 01-05-2025 ambulatory [facility] Comment on above: Arrived Start: 12-31-2024 End: 12-31-2024 ambulatory [facility] Comment on above: Vertigo (Primary Dx) Start: 12-29-2024 End: 12-29-2024 ambulatory [facility] Comment on above: Arrived Start: 12-23-2024 End: 12-23-2024 ambulatory 12/23/2024 12:30 PM EDT Evaluation [facility] [address] [place] [address] Joselyn Narvaez, PT Vertigo (Primary Dx) [facility] Comment on above: Vertigo (Primary Dx) Start: 12-22-2024 End: 12-22-2024 Patient encounter procedure 12/22/2024 11:45 AM EDT Office Visit [facility] [address] [place] [address] Jayme Perez MD [address] [place] [address] Arrived [facility] Comment on above: Arrived Start: 11-04-2024 End: 11-04-2024 Patient encounter procedure [facility] Comment on above: Encounter for Medicare annual wellness e xam; Advance directive discussed with patient; Encounter for screening for other disorder; Screening for alcohol problem; Screening mammogram, encounter for Start: 10-25-2024 End: 10-25-2025 Microalbumin/Creatinine panel in random Urine Microalbumin / creatinine urine ratio Lab Routine Type 2 diabetes mellitus with stage 3a chronic kidney disease, without long-term current use of insulin (HCC) ([facility]/HCC) Stage 3a chronic kidney disease (HCC) ([facility]/HCC) Microalbuminuria Expected: 10/25/2024 (Approximate), Expires: 10/25/2025 [facility] Work Phone: Comment on above: Expected: 10/25/2024 (Approximate), Expi res: 10/25/2025 Start: 10-21-2024 End: 10-21-2024 Patient encounter procedure [facility] Comment on above: Type 2 diabetes mellitus with stage 3a c hronic kidney disease, without long-term current use of insulin (HCC) (CMS/HCC); Stage 3a chronic kidney disease (HCC) (CMS/HCC); Microalbuminuria; 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 (CMS/HCC); 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 Start: 10-14-2024 End: 04-15-2025 T3, reverse T3, reverse Lab Routine Chronic fatigue Expected: 10/14/2024 (Approximate), Expires: 04/15/2025 [facility] Comment on above: Expected: 10/14/2024 (Approximate), Expi res: 04/15/2025 Start: 10-14-2024 End: 04-15-2025 Thyrotropin [Units/volume] in Serum or Plasma TSH Lab Routine Chronic fatigue Expected: 10/14/2024 (Approximate), Expires: 04/15/2025 [facility] Comment on above: Expected: 10/14/2024 (Approximate), Expi res: 04/15/2025 Start: 10-14-2024 End: 04-15-2025 Thyroxine (T4) free [Mass/volume] in Serum or Plasma T4, free Lab Routine Chronic fatigue Expected: 10/14/2024 (Approximate), Expires: 04/15/2025 [facility] Comment on above: Expected: 10/14/2024 (Approximate), Expi res: 04/15/2025 Start: 10-14-2024 End: 04-15-2025 Triiodothyronine (T3) [Mass/volume] in Serum or Plasma T3 Lab Routine Chronic fatigue Expected: 10/14/2024 (Approximate), Expires: 04/15/2025 [facility] Work Phone: Comment on above: Expected: 10/14/2024 (Approximate), Expi res: 04/15/2025 Start: 10-14-2024 End: 04-15-2025 Triiodothyronine (T3) Free [Mass/volume] in Serum or Plasma T3, free Lab Routine Chronic fatigue Expected: 10/14/2024 (Approximate), Expires: 04/15/2025 [facility] Comment on above: Expected: 10/14/2024 (Approximate), Expi res: 04/15/2025 Start: 08-04-2024 End: 08-04-2024 Patient encounter procedure [facility] Comment on above: Arrived Start: 05-22-2024 Medicare Annual Wellness (AWV) Medicare Annual Wellness (AWV) [facility] Start: 04-15-2024 End: 04-15-2024 Patient encounter procedure 04/15/2024 2:30 PM EDT Office Visit [facility] [address] [facility] [address] [place] [address] Jayme Perez MD [address] [place] [address] (Fax) [facility] Start: 03-14-2024 Influenza vaccination Influenza Vaccine (#1) [facility] Start: 10-26-2023 Urine screening for protein Diabetes: Urine Protein Screening [facility] Start: 09-01-2023 End: 09-01-2023 Patient encounter procedure 09/01/2023 10:30 AM EST Office Visit [facility] [address] [place] [id number] Felicia Farmer DO [address] [place] [address] [facility] Start: 05-06-2023 Hemoglobin A1c measurement Diabetes: Hemoglobin A1C [facility] Start: 04-07-2023 Abdomen endoscopy OR Cysto/Retro/Stent/Stone/H olmium Laser (Right) [facility] Start: 03-14-2023 Influenza vaccination Influenza Vaccine (#1) [facility] Start: 09-12-2020 Urine screening for protein Diabetes: Urine Protein Screening [facility] Start: 1951 Pneumococcal Vaccine: 65+ Years (1 - PCV) Pneumococcal Vaccine: 65+ Years (1 - PCV) [facility] Start: 1951 Pneumococcal Vaccine: 65+ Years (1 of 2 - PCV) Pneumococcal Vaccine: 65+ Years (1 of 2 - PCV) [facility] Start: 1947 Skin Cancer Screening Skin Cancer Screening [facility] Bilirubin measurement [facility] BLOOD CULTURE 1 BLOOD CULTURE 1 Lab Routine 01/31/2025 9:50 AM EDT [facility] BLOOD CULTURE 2 BLOOD CULTURE 2 Lab Routine 01/31/2025 9:56 AM EDT [facility] Body weight [facility] Calcium carbonate/To sayda in [facility] Calcium hydrogen phosphate dihydrate/Total in Stone [facility] Calcium oxalate monohydrate/Total in [facility] Calcium phosphate level [facility] Calculus analysis wi th calculus photography [Interpretation] in [facility] Calculus analysis, qualitative [facility] Calculus analysis, quantitative [facility] Calculus analysis, quantitative, infrared spectroscopy [facility] Cellular material [Mass/mass] of Stone by Estimated [facility] Cholesterol [Mass/vo lume] in Serum or Plasma [facility] Cystine measurement [facility] Determination of jeremie culus chemical composition [facility] Evaluation procedure [facility] Hydroxyapatite [Ener gy Difference] in 24 hour Urine [facility] Laboratory data interpretation [facility] Newberyite/Total in [facility] Patient Education Know your Meds [facility] Work Phone: Patient referral [facility] Work Phone: Specimen source subj ect [Type] [facility] Triamterene measurement [facility] Triple phosphate/Tot al in [facility] URINE CULTURE - [facility] URINE CULTU RE - [facility] Lab Routine 02/04/2025 1:19 PM EDT [facility] Immunizations Immunization Date Immunization Notes Care Provider Yaya oswald NEGATED: Highlighted row has not occurred!08-13-2023 influenza virus vaccine, unspecified formulation Renato SANTACRUZ [facility] NEGATED: Highlighted row has not occurred!08-13-2023 SARS-CoV-2 mRNA (tozinameran 5y-11y) vaccine Renato SANTACRUZ [facility] NEGATED: Highlighted row has not occurred!09-21-2019 influenza virus vaccine, live, attenuated, for intranasal use Eugenia SHEPHERD [facility] NEGATED: Highlighted row has not occurred!08-20-2019 influenza virus vaccine, live, attenuated, for intranasal use Eugenia SHEPHERD [facility] Payers Date Payer Category Payer Self-pay [id number] 2023 Private Health Insurance [id number] 2023 Medicare [id number] 2022 Unknown [employer] [id number] 2022-Present [address] [address] [place] [address] [id number] .[id number] 2002 Medicare [id number] .[id number] 1959 Medicare [id number] 2.16.840.1.577809.19 1959 Unknown [id number] 1946 Unknown [id number] 2.16.840.1.486901.3.579 .2.593 1946 Unknown [id number] 2.16.840.1.020419.3.579 .2.593 1946 Unknown [id number] 2.16.840.1.971998.3.579 .2.593 1946 Unknown [id number] 2.16.840.1.458953.3.579 .2.593 1946 Unknown [id number] 2.16.840.1.119952.3.579 .2.593 1946 Unknown [id number] 2.16.840.1.122102.3.579 .2.593 1946 Unknown [id number] 2.16.840.1.965402.3.579 .2.593 1946 Unknown [id number] 2.16.840.1.533059.3.579 .2.593 1946 Unknown [id number] 2.16.840.1.241058.3.579 .2.593 1946 Unknown [id number] 2.16.840.1.655998.3.579 .2.593 1946 Unknown [id number] 2.16.840.1.226913.3.579 .2.593 1946 Unknown [id number] 2.16.840.1.377403.3.579 .2.593 1946 Unknown [id number] 2.16.840.1.199942.3.579 .2.593 1946 Unknown [id number] 2.16.840.1.825230.3.579 .2.125 1946 Unknown [id number] 2.16.840.1.053277.3.579 .2.125 1946 Unknown [id number] 2.16.840.1.235527.3.579 .2.125 1946 Unknown [id number] 2.16.840.1.124290.3.579 .2.125 1946 Unknown [id number] 2.16.840.1.523850.3.579 .2.125 1946 Unknown [id number] 2.16.840.1.305393.3.579 .2.125 1946 Unknown [id number] 2.16.840.1.165870.3.579 .2.125 1946 Unknown [id number] 2.16.840.1.230799.3.579 .2.125 1946 Unknown [id number] 2.16.840.1.398313.3.579 .2.1259 1946 Unknown [id number] 2.16.840.1.417419.3.579 .2.1259 1946 Unknown [id number] 2.16.840.1.856882.3.579 .2.1258 1946 Unknown [id number] 2.16.840.1.924375.3.579 .2.1259 1946 Unknown [id number] 2.16.840.1.447822.3.579 .2.727 1946 Unknown [id number] 2.16.840.1.841899.3.579 .2.727 1946 Unknown [id number] 2.16.840.1.803001.3.579 .2.727 Unknown [id number] 2.16.840.1.232586.3.579 .2.531 Unknown [id number] 2.16.840.1.428766.3.579 .2.531 Unknown [id number] 2.16.840.1.200825.3.579 .2.531 Unknown [id number] 2.16.840.1.524538.3.579 .2.531 Social History Date Type Detail Facility Sex Assigned At [facility] Start: 02-03-2023 End: 04-15-2024 Tobacco smoking status Ex-smoker (finding) [facility] Tobacco smoking status Never [facility] Start: 12-11-2022 End: 04-08-2024 Sex Assigned At Female [facility] Start: 1945 Sex Assigned At Female [facility] End: 07-14-1986 History of tobacco use Current smoker [facility] End: 07-14-1986 History of tobacco use Cigarette Smoker [facility] Start: 08-07-2023 End: 04-15-2024 Tobacco use and exposure Smokeless tobacco non-user [facility] Start: 08-07-2023 End: 02-08-2025 Alcohol intake Ex-drinker (finding) [facility] Start: 12-11-2022 End: 04-08-2024 History of [...] days [OSQ] Not at all [facility] Sex Female (finding) [facility] Goals Date Patient Goal Desired Activity /State Functional Status Date Assessment Result Facility 11-04-2024 Patient Health Quest ionnaire 2 item (PHQ-2) [Reported] [facility] 10-25-2024 Patient Health Quest ionnaire 2 item (PHQ-2) [Reported] [facility] 07-12-2024 Functional Status N/A [facility] 10-14-2023 Functional Status N/A [facility] 08-13-2023 Functional Status N/A [facility] Clinical Notes 02-21-2022 to 02-08-2025 Telephone Encounter - October SAPPHIRE Harris - 02/08/2025 12:30 PM EDTTelephone Encounter - October SAPPHIRE Harris - 02/08/2025 12:29 PM Suad Perez MD - 02/08/2025 10:30 AM EDT Note Date & Type Note Facility 02-08-2025 Telephone encount er Note Copied from from pt: Rafael, this is Jocelyn Sen, [phone]. I forgot to ask Dr. Persaud when I should start taking my warfare again and he's going to be off for a while, so I thought I'd better try and find out now. [phone], thank you. [facility] 02-08-2025 Telephone encount er Note Copied from : The is the [facility] pharmacy calling concerning the prescriptions for Wilda Sen birthday [id number] have a prescription for Roberto F on 250 mg tablets. We have noted on our file as well as the second page of the prescription that came across that she is allergic to cipro box. So I did not know if this was addressed. I do not have more detailed information than that, but I was just calling to see if you actually did want to continue with the lev flexes or wanted to prescribe an alternate. I will send the script clarification if I can as well. Thank you so much by. [facility] 02-08-2025 History of Presen t illness Narrative Images from the original note were not included. Patient ID: Wilda Sen is a 79 y.o. female who presents for: Hospital Follow up kidney stones Flowsheet Row Patient Outreach from 02/08/2025 in [facility] with Klaudia Terrell LPN Hospital Information ED, Hospital or Retirement Facility Discharge? ED Patient has been contacted within 2 days of being seen in the ED No [unable to reach] Have two attempts been made, within 2 days of being seen in the ED, to contact the patient? Yes Diagnosis uretral Colic, Hydronephrosis with ureteral calculus, kidney stone Discharge Date 02/04/25 Discharged To: Home Setting Discharge Hospital [facility] Engagement Admission Date 02/04/25 Medications Discharge medications reviewed and reconciled from hospital? -- [unable to reach] Appointments Does the patient have a primary care provider? Yes [Apprt 02/08] Self Management Patient Teaching Wrap Up Wrap Up Additional Comments Labs, UA, CT abdomen/pelvis, EKG. Pt presented to ER with c/o intolerable pain left lower quadrent. Recently had double J stent placement for left renal colic. Pt recieved morphine and 1 dose of Ceftriaxone in ER Review of Systems Patient is still having pain but notes that is much improved. Still having problems with passing some blood clots. Most of them are thin but she has had a couple that were on actually uncomfortable to pass. No fever chills. No urinary incontinence. Continues with pain from the stent. She is rating this at a 7-8 on the pain scale , noting that she has a fairly stoic patient. Objective The patient is pleasant and in no acute distress The patient has good eye contact and clear speech 01/06/2025 11:39 AM 12/22/2024 11:35 AM 11/04/2024 1:54 PM 04/15/2024 2:16 PM Vitals BMI 22.5 kg/m2 22.5 kg/m2 22.5 kg/m2 21.79 kg/m2 BSA (m2) 1.6 m2 1.6 m2 1.6 m2 1.57 m2 Systolic 122 120 Diastolic 76 70 Heart Rate 100 87 SpO2 99 % 98 % Height (in) 5' 3 5' 3 5' 3 5' 3 Weight (lb) 127 127 127 123 Visit Report Report Report Report Report Allergies Allergen Reactions Hydrocodone Bit-Homatrop Mbr Dizziness [...] day. 1 capsule orally once a day golimumab (Simponi) 100 MG/ML solution auto-injector Inject 100 mg under the skin every 8 (eight) weeks meclizine (Antivert) 12.5 MG tablet Take 0.5-1 tablets (6.25-12.5 mg) by mouth 3 (three) times a day as needed for dizziness for up to 20 days 60 tablet 0 metFORMIN (Glucophage) 1000 MG tablet Take 1 tablet (1,000 mg) by mouth in the morning and 1 tablet (1,000 mg) in the evening. Take with meals. 180 tablet 1 Methotrexate 12.5 MG/0.5ML solution prefilled syringe Inject 0.5 mL under the skin 1 (one) time per week predniSONE (Deltasone) 5 MG tablet Take 2.5 mg by mouth Daily Spacer/Aero-Holding Chambers (BreatheRite Leonor Spacer Adult) misc 2 puffs 4 (four) times a day as needed (sob and cough) 1 each 0 spironolactone (Aldactone) 25 MG tablet Take 1 tablet (25 mg) by mouth Daily for 10 days 10 tablet 0 traZODone (Desyrel) 50 MG tablet Titrate nightly from 1/2 tablet up to 2 tablets by 1/2 tablet increments as tolerated 60 tablet 0 warfarin (Coumadin) 4 MG tablet Take 1 tablet (4 mg) by mouth at bedtime No current facility-administered medications on file prior to visit. 1. Kidney stone on left side (Primary) Chronic problem that is primarily under the care of Urology. While the blood can certainly be from the stone and stent she did have evidence of infection. I am going to extend the levofloxacin for now. We did discuss in his especially in the evening she is having problems getting comfortable enough in it is interfering with her sleep. We have mutually agreed to some narcotic pain medication and we will continue with the oxycodone she was previously prescribed. It does cause her nausea and so we will also give her some Zofran. PDMP reviewed, Jayme Perez MD on 02/08/2025 10:55 AM Appears as expected. I specifically note the patient has one or more high risk medications that is a chronic problem that specifically increases complexity of decision making and complicates all prescribing including prescription renewal consistent with a moderate or complex degree of decision making. A high-risk medicine is one that may cause serious health problems if not taken the correct way, or taken with another drug or food item that it may interact with. If the high-risk medication includes a controlled or reportable substance, The OARRS and NARX scores were reviewed and seem to be consistent with their prescribing pattern. The Current Opioid Misuse Measure (COMM) is reviewed and there is no evidence of aberrant behavior or abuse. Treatment regimens are increasingly complex and potentially harmful, and people with high risk medications need regular review and prescribing optimization. In prescribing a renewal to their current medication, consideration of the following encompasses moderate decision making; the current prescriptions and supplements, the current allergies and medication intolerances, current medical conditions, and potential drug interactions. The patient was given a chance to ask questions today and all questions were answered. - ondansetron ODT (Zofran-ODT) 4 MG disintegrating tablet; Take 1 tablet (4 mg) by mouth every 8 (eight) hours if needed for nausea or vomiting for up to 10 days Dispense: 30 tablet; Refill: 0 - oxyCODONE (Oxy-IR) 5 MG immediate release capsule; Take 1 capsule (5 mg) by mouth every 8 (eight) hours for 7 days Dispense: 21 capsule; Refill: 0 - levoFLOXacin (Levaquin) 250 MG tablet; Take 1 tablet (250 mg) by mouth Daily for 10 days Dispense: 10 tablet; Refill: 0 2. Hospital discharge follow-up This visit is prompted as a transition of care From the emergency room. The patient has been contacted by phone within 2 business days of discharge or at least 2 unsuccessful attempts were made to contact the patient within the 2 business days. Any available documents including; emergency room note, visit notes, consults, and discharge summary or continuity of care documents were reviewed. Any laboratory investigation or diagnostic imaging that was ordered by outside physicians and available was obtained and reviewed. The transition of care note is reviewed. a [id number] evaluation is done today. Medical decision making is complex in degree. Please Note: Portions of this chart may have been created using voice recognition software. Occasionally a wrong-word or sound-like substitutions may have occurred due to inherent limitations of the voice recognition software. Please read the chart carefully and recognize, using context, where the substitutions may have occurred. documented in this encounter [facility] 01-06-2025 History of Presen t illness Narrative Images from the original note were not included. Patient ID: Wilda Sen is a 79 y.o. female who presents for: Vertigo/Dizziness: He/She complains of dizziness. The dizziness has been present for 4 weeks. He/She describes the symptoms as disequalibirum, vertigo, and lightheadedness. Pt states it feels like she is Drunk when trying to walk. Symptoms are exacerbated by rapid position changes and movements. He/She also complains of none. He/She has been treated with PT which has not helped. Review of Systems Denies any chest pains or palpitations. Denies nausea vomiting or clamminess. Objective In general the patient is pleasant and in no acute distress. Bilateral ears, canals are within normal limits. Right TM is transparent and somewhat retracted. Left TM is transparent and somewhat retracted. No fluid layer. Oropharynx has moist mucosa there is no specific evidence of thrush. There is mild erythema of the pharynx. Shoddy bilateral anterior cervical adenopathy. No signs of respiratory distress. Patient is speaking full sentences. There are symmetrical breath sounds. No rhonchi or rales are appreciated. No wheezes. Skin is warm and dry 05/19/2023 3:17 PM 05/22/2023 2:16 PM 07/30/2023 2:21 PM 08/07/2023 9:48 AM 04/15/2024 2:16 PM 11/04/2024 1:54 PM 12/22/2024 11:35 AM Vitals BMI 24.45 kg/m2 24.45 kg/m2 24.45 kg/m2 21.79 kg/m2 22.5 kg/m2 22.5 kg/m2 BSA (m2) 1.67 m2 1.67 m2 1.67 m2 1.57 m2 1.6 m2 1.6 m2 Systolic 123 118 120 122 Diastolic 71 68 70 76 Heart Rate 71 72 100 57 87 100 SpO2 98 % 96 % 98 % 98 % 99 % Height (in) 5' 3 5' 3 5' 3 5' 3 5' 3 5' 3 Weight (lb) 138 138 138 123 127 127 Visit Report Report Report Report Report Report Report Report Allergies Allergen Reactions Hydrocodone Bit-Homatrop Mbr Dizziness [...] day. 1 capsule orally once a day golimumab (Simponi) 100 MG/ML solution auto-injector Inject 100 mg under the skin every 8 (eight) weeks meclizine (Antivert) 12.5 MG tablet Take 0.5-1 tablets (6.25-12.5 mg) by mouth 3 (three) times a day as needed for dizziness for up to 20 days 60 tablet 0 metFORMIN (Glucophage) 1000 MG tablet Take 1 tablet (1,000 mg) by mouth in the morning and 1 tablet (1,000 mg) in the evening. Take with meals. 180 tablet 1 Methotrexate 12.5 MG/0.5ML solution prefilled syringe Inject 0.5 mL under the skin 1 (one) time per week predniSONE (Deltasone) 5 MG tablet Take 2.5 mg by mouth Daily Spacer/Aero-Holding Chambers (BreatheRite Leonor Spacer Adult) misc 2 puffs 4 (four) times a day as needed (sob and cough) 1 each 0 traZODone (Desyrel) 50 MG tablet Titrate nightly from 1/2 tablet up to 2 tablets by 1/2 tablet increments as tolerated 60 tablet 0 warfarin (Coumadin) 4 MG tablet Take 1 tablet (4 mg) by mouth at bedtime No current facility-administered medications on file prior to visit. 1. Vertigo (Primary) At this point she has failed physical therapy for both left Mallory maneuvers and cervicogenic causes of her vertigo. She does note that her neck is a little more supple but does not notice any significant improvement in the vertigo. She is going to discontinue physical therapy which is not unreasonable. We discussed imaging at this point. The patient was pretty much up front and somewhat adamant that she was not getting imaging because she would not have anything done with if there was a tumor or other lesion inside her skull. Briefly mentioned early detection and she acknowledge that. We discussed as a trial of treatment that is sometimes spironolactone and stabilizing fluid volumes can help or vertigo in the patient is interested in this. She will contact us back after 10 days to see if there some improvement. She will consider the imaging during this time. - spironolactone (Aldactone) 25 MG tablet; Take 1 tablet (25 mg) by mouth Daily for 10 days Dispense: 10 tablet; Refill: 0 documented in this encounter [facility] 12-22-2024 History of Presen t illness Narrative Images from the original note were not included. Patient ID: Wilda Sen is a 79 y.o. female who presents for: Vertigo/Dizziness: He/She complains of dizziness. The dizziness has been present for 2 weeks. He/She describes the symptoms as disequalibirum, vertigo, and lightheadedness. Symptoms are exacerbated by rapid head movements. He/She also complains of none. He/She has been treated with nothing. Review of Systems No other neurologic complaints. She does have some tinnitus. No nausea vomiting. Objective In general the patient is pleasant and in no acute distress. Bilateral ears, canals are within normal limits. Right TM is transparent and somewhat retracted. Left TM is transparent and somewhat retracted. No fluid layer. Bilateral nares demonstrate Mildly inflamed mucosa. Shoddy bilateral anterior cervical adenopathy. Heart is Mildly irregular rate and rhythm. Skin is warm and dry Her gait is tandem and she does not appear unsteady on her feet. Her cervical range of motion is decreased diffusely. Bilateral lateral flexion and rotation of her head mildly increases her vertigo. 02/06/2023 1:54 PM 05/19/2023 3:17 PM 05/22/2023 2:16 PM 07/30/2023 2:21 PM 08/07/2023 9:48 AM 04/15/2024 2:16 PM 11/04/2024 1:54 PM Vitals BMI 24.45 kg/m2 24.45 kg/m2 24.45 kg/m2 24.45 kg/m2 21.79 kg/m2 22.5 kg/m2 BSA (m2) 1.67 m2 1.67 m2 1.67 m2 1.67 m2 1.57 m2 1.6 m2 Systolic 123 118 120 122 Diastolic 71 68 70 76 Heart Rate 91 71 72 100 57 87 100 SpO2 98 % 96 % 98 % 98 % 99 % Height (in) 5' 3 5' 3 5' 3 5' 3 5' 3 5' 3 Weight (lb) 138 138 138 138 123 127 Visit Report Report Report Report Report Report Report Report Allergies Allergen Reactions Hydrocodone Bit-Homatrop Mbr Dizziness [...] day. 1 capsule orally once a day golimumab (Simponi) 100 MG/ML solution auto-injector Inject 100 mg under the skin every 8 (eight) weeks metFORMIN (Glucophage) 1000 MG tablet Take 1 tablet (1,000 mg) by mouth in the morning and 1 tablet (1,000 mg) in the evening. Take with meals. 180 tablet 1 Methotrexate 12.5 MG/0.5ML solution prefilled syringe Inject 0.5 mL under the skin 1 (one) time per week predniSONE (Deltasone) 5 MG tablet Take 2.5 mg by mouth Daily Spacer/Aero-Holding Chambers (BreatheRite Leonor Spacer Adult) misc 2 puffs 4 (four) times a day as needed (sob and cough) 1 each 0 traZODone (Desyrel) 50 MG tablet Titrate nightly from 1/2 tablet up to 2 tablets by 1/2 tablet increments as tolerated 60 tablet 0 warfarin (Coumadin) 4 MG tablet Take 1 tablet (4 mg) by mouth at bedtime No current facility-administered medications on file prior to visit. 1. Vertigo (Primary) Acute problem. We discussed that are multiple reasons for this. She did not have any trauma. She has not also felt ill. I discussed using the meclizine and this very specific side effect of sedation. We also discussed at least a trial of physical therapy in case there was a piece of calcium broken off and they can use the Mallory maneuvers to get that out, or if it was cervicogenic, then they could try and help loosen that part of her neck up. She is in agreement. - meclizine (Antivert) 12.5 MG tablet; Take 0.5-1 tablets (6.25-12.5 mg) by mouth 3 (three) times a day as needed for dizziness for up to 20 days Dispense: 60 tablet; Refill: 0 - Ambulatory referral to Physical Therapy; Future - Ambulatory referral to Physical Therapy 2. 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 (HCC) - Protime-INR 3. group home current use of anticoagulant - Protime-INR 4. Medication monitoring encounter - Protime-INR documented in this encounter [facility] 11-24-2024 History of Presen t illness Narrative Her INR last month was borderline high. She is now currently high at 3.4. I am unsure of her dosing in the medication management section. She has a warfarin 4 mg tablet only but it says take a total of 5 mg. Please clarify how much warfarin she is taking I would like her to go down 1 mg from whatever her current doses. Such that if she is taking 5 mg in the evening we would want her to go down to 4 mg, but if she is taking just 4 mg in the evening we would want her down to 3 mg. Update medication management section, recheck INR in 2 weeks. documented in this encounter [facility] 11-04-2024 History of Presen t illness Narrative Images from the original note were not included. Wilda Sen is a 79 y.o. female presents with chief complaint of Annual Exam HPI: I have reviewed and reconciled the history and medication list with the patient today. CURRENT PCP/CARE TEAM: Patient Care Team: Jayme Perez MD as PCP - General (Family Medicine) Jayme Perez MD as PCP - ACO Reach Felicia Farmer DO as Referring Physician (Ophthalmology) Renato Santacruz MD as Referring Physician (Urology) Radames Monteiro MD as Referring Physician (Rheumatology) Over the past 2 weeks, how often have you been bothered by any of the following problems? Little interest or pleasure in doing things: Not at all Feeling down, depressed, or hopeless: Not at all Patient Health Questionnaire-2 Score: 0 Over the past 2 weeks, how often have you been bothered by any of the following problems? Trouble falling or staying asleep, or sleeping too much: More than half the days Feeling tired or having little energy: More than half the days Poor appetite or overeating: More than half the days Feeling bad about yourself - or that you are a failure or have let yourself or your family down: Not at all Trouble concentrating on things, such as reading the newspaper or watching television: Several days Moving or speaking so slowly that other people could have noticed? Or the opposite - being so fidgety or restless that you have been moving around a lot more than usual.: Not at all Thoughts that you would be better off or hurting yourself in some way: Not at all Patient Health Questionnaire-9 Score: 7 Health Risk Assessment Form Do you need help eating, bathing, using the toilet, dressing, or getting around your home?: No Can you prepare your own meals?: Yes Can you do your own housework without help?: Yes Can you shop for groceries or clothes without help?: Yes Do you exercise for about 20 minutes 3 or more days a week?: No How confident are you that you can control and manage most of your health problems?: Very confident Can you mange your money, credit cards and accounts, pay bills and taxes?: Yes Vision Screening: Yes, 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 Hearing Screening: Not done Cognitive Screening Self Assessment: No concerns rasied by family members, friends, or caretakers Three Word Registration: [place], [place], Finger Clock Drawing: Normal Clock - 2 Three Word Recall: All 3 words correct - 3 Total Score (0-5 Points): 5 Pain Assessment Pain Score: 4 HISTORIES: PAST MEDICAL HISTORY: Past Medical History: Diagnosis Date Arthritis Basal cell carcinoma nose (2011), druze left (2014) Basal cell carcinoma (BCC) of multiple sites 2014 face Calculus of kidney Chronic kidney disease, stage 2 (mild) Depressive disorder (CMS/HCC) not elsewhere classified Diabetes (CMS/HCC) Diabetes mellitus (CMS/HCC) Diabetes mellitus without mention of complication, type II or unspecified type, not stated as uncontrolled Diarrhea, unspecified Diverticulitis of colon (without mention of hemorrhage)(562.11) Duodenitis 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 Shepherd Situational depression ([facility]/HCC) Type 2 diabetes mellitus without complications SURGICAL HISTORY: Past Surgical History: Procedure Laterality Date BASAL CELL CARCINOMA EXCISION wide excision of BCC of nose BASAL CELL CARCINOMA EXCISION excision multiple BCC face 2013, 2015 BREAST BIOPSY CATARACT EXTRACTION CYSTOSCOPY W/ LASER LITHOTRIPSY 08/14/2023 Cytoscopy, right ureteral dilation, thilium laser of right ureteral calculus, Dr Santacruz EYE EXAM 2011, 2013 HYSTERECTOMY 1973 LITHOTRIPSY and laser surgery for kidney stone 2015, 08/2019 MELANOMA 10/2014 excision right posterior shoulder [place] REMOVAL OF LUNG 1987 pneumonectomy SCREENING MAMMOGRAM, BILATERAL 05/31/2014 SMALL JOINT ARTHROCENTESIS right knee SOCIAL HISTORY: Social History Tobacco Use Smoking status: Former Current packs/day: 0.00 Types: Cigarettes Quit date: 1986 Years since quittin.3 Smokeless tobacco: Never Substance Use Topics Alcohol use: Not Currently Drug use: Never Depression: Not at risk (11/04/2024) PHQ-2 PHQ-2 Score: 0 FAMILY HISTORY: Family History Problem Relation Name Age of Onset Heart disease Mother No Known Problems Maternal Grandmother No Known Problems Maternal Grandfather No Known Problems Paternal Grandmother No Known Problems Paternal Grandfather MEDICATIONS: Current Outpatient Medications Medication Instructions acarbose (PRECOSE) 100 mg, Oral, 3 times daily with meals acetaminophen (TYLENOL) 325 mg, Every 6 hours PRN albuterol HFA 90 mcg/act inhaler 2 puffs, Inhalation, 4 times daily calcium citrate 250 mg, 3 times daily cinnamon 500 mg, 2 times daily esomeprazole (NEXIUM) 20 mg, Daily Ferrous Bisglycinate Chelate 28 MG capsule 1 capsule, Oral, Daily with evening meal golimumab (SIMPONI) 100 mg, Every 8 weeks metFORMIN (GLUCOPHAGE) 1,000 mg, Oral, 2 times daily with meals Methotrexate 12.5 MG/0.5ML solution prefilled syringe 0.5 mL, Weekly predniSONE (DELTASONE) 2.5 mg, Daily Spacer/Aero-Holding Chambers (BreatheRite Leonor Spacer Adult) misc 2 puffs, Does not apply, 4 times daily PRN traZODone (Desyrel) 50 MG tablet Titrate nightly from 1/2 tablet up to 2 tablets by 1/2 tablet increments as tolerated Vitamin B12 3,000 mcg, Daily warfarin (Coumadin) 4 MG tablet TAKE ONE TABLET BY MOUTH EVERY EVENING FOR A TOTAL OF 5MG ALLERGIES: Allergies Allergen Reactions Hydrocodone Bit-Homatrop Mbr Dizziness Ketorolac Nausea Only Other Reaction(s): Unknown Severe Latex Other Reaction(s): Blister Medical Adhesive Remover Other Reaction(s): facial edema, redness/metrogel Metronidazole Other Reaction(s): facial edema, redness/metrogel Pioglitazone Other Reaction(s): Unknown, Vomiting Sulfa Antibiotics Other Reaction(s): rash swelling Ciprofloxacin Other Reaction(s): bennett, Unknown Nsaids Other Reaction(s): Abdominal Pain, Unknown PHYSICAL EXAM: Visit Vitals BP 122/76 Pulse 100 Ht 5' 3 Wt 127 lb SpO2 99% BMI 22.50 kg/m OB Status Postmenopausal Smoking Status Former BSA 1.6 m BP Readings from Last 3 Encounters: 11/04/24 122/76 04/15/24 120/70 05/22/23 118/68 Wt Readings from Last 3 Encounters: 11/04/24 127 lb 04/15/24 123 lb 08/07/23 138 lb Physical Exam The patient is pleasant and in no acute distress The patient has good eye contact and clear speech ASSESSMENT AND PLAN: 1. Encounter for Medicare annual wellness exam (Primary) The patient is here for their Annual Medicare Wellness visit. Demographics were updated. Self-assessment was completed and reviewed. Past medical, family, and social history were updated. The medication list updated and reviewed by the doctor. A list of other current medical providers is established and updated. Time was spent discussing health maintenance issues, ordering testing as appropriate, and a schedule was reviewed regarding recommended screening. We discussed safety issues and fall risk. Depression screening was completed and addressed as appropriate. Fall screening was completed and addressed. Cognitive function was assessed by direct observation, cognitive screening as indicated, and assessment of ability to perform ADL's. The BMI and discussed. Major risk factors for chronic disease including family history were discussed. An after visit summary is made available to the patient 2. Advance directive discussed with patient Patient voluntarily agreed to discuss advance care planning at today's wellness visit. We discussed that an advance directive is a legal document that only goes into effect if the patient is incapacitated and unable to speak for themselves. This would help us to decide what care the patient would want. We discussed emergency treatments to keep the patient alive such as CPR, ventilator use and concept of comfort. We discussed how patients could make their wishes known through a living will, durable power of bankruptcy attorney for healthcare, or other advanced directives. We discussed telling flanagan people about their advance and a copy will be kept in the EHR. I discussed that they should also make me an emergency contact in their cell phone, and/or notify their POA that I have a copy of the advanced directives. 3. Encounter for screening for other disorder Clinically insignificant depression screening 4. Screening for alcohol problem Negative alcohol screening 5. Screening mammogram, encounter for Patient wants a minimalist approach to her current medical care. She understands the importance of early detection. She has declined to receive breast cancer screening. 6. Iron deficiency - Ferrous Bisglycinate Chelate 28 MG capsule; Take 1 capsule by mouth in the evening. Take with meals 7. Chronic diastolic heart failure (CMS/HCC) Chronic problem, stable, currently asymptomatic and monitor longitudinally. 8. 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 (CMS/HCC) Chronic problem, stable, currently asymptomatic and monitor longitudinally. 9. Stage 3a chronic kidney disease (HCC) (CMS/HCC) Chronic problem, stable, currently asymptomatic and monitor longitudinally. 10. Age-related osteoporosis without current pathological fracture (CMS/HCC) Chronic problem, stable, currently asymptomatic and monitor longitudinally. 11. Psoriatic arthropathy (CMS/HCC) Chronic problem, stable, mild to moderately symptomatic. Primarily managed by Rheumatology. 12. Type 2 diabetes mellitus with stage 3a chronic kidney disease, without long-term current use of insulin (HCC) (CMS/HCC) Chronic problem, stable, currently asymptomatic and monitor longitudinally. 13. Type 2 diabetes mellitus with diabetic microalbuminuria, without long-term current use of insulin (CMS/HCC) Chronic problem, stable, currently asymptomatic and monitor longitudinally. 14. Immunosuppressed status (CMS/HCC) Chronic problem, stable, currently asymptomatic and monitor longitudinally. documented in this encounter [facility] 11-02-2024 History of Presen t illness Narrative Reviewed microalbuminuria test Updated problem list. 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 Patient ID: Wilda Sen is a 79 y.o. female who presents for: Needs Micro EH I had to send in her two diabetic meds early because she was out. Did not send warfarin though. Follow up needs to be 5.5 months not 6 Arrhythmia Patient who presents for follow-up of atrial fibrillation. Symptoms include None . Onset was SEVERAL years ago, and have been unchanged since that time. Diabetes Mellitus Patient presents for follow up of diabetes. Current symptoms include: none. Symptoms have stabilized. Patient denies foot ulcerations, hypoglycemia , and visual disturbances. Evaluation to date has included: hemoglobin A1C. Home sugars: patient does not check sugars. Review of Systems She has no other complaints. Objective The patient is pleasant and in no acute distress. The neck is supple and trachea is midline. No masses are appreciated. The heart is regular rate and rhythm without S3, S4. 3/ 6 systolic murmur. The patient has normal respiratory pattern. The breath sounds are diffusely decreased but symmetrical without evidence of rhonchi or rales. No wheezing. The skin is warm and dry. The lower extremities have trace edema. The patient has good eye contact and speech is clear. Appropriate affect. Visit Vitals OB Status Postmenopausal Smoking Status Former Allergies Allergen Reactions Hydrocodone Bit-Homatrop Mbr Dizziness [...] day. 1 capsule orally once a day golimumab (Simponi) 100 MG/ML solution auto-injector Inject 100 mg under the skin every 8 (eight) weeks metFORMIN (Glucophage) 1000 MG tablet Take 1 tablet (1,000 mg) by mouth in the morning and 1 tablet(1,000 mg) in the evening. Take with meals. 180 tablet 1 Methotrexate 12.5 MG/0.5ML solution prefilled syringe Inject 0.5 mL under the skin 1 (one) time perweek predniSONE (Deltasone) 5 MG tablet Take 2.5 mg by mouth Daily Spacer/Aero-Holding Chambers (BreatheRite Leonor Spacer Adult) misc 2 puffs 4 (four) times a day as needed (sob and cough) 1 each 0 tamsulosin (Flomax) 0.4 MG 24 hr capsule Take 0.4 mg by mouth in the morning. (Patient not taking: Reported on 10/21/2024) traZODone (Desyrel) 50 MG tablet Titrate nightly from 1/2 tablet up to 2 tablets by 1/2 tablet increments as tolerated 60 tablet 0 No current facility-administered medications on file prior to visit. 1. Type 2 diabetes mellitus with stage 3a chronic kidney disease, without long- term current use of insulin (HCC) ([facility]) Chronic problem, stable, to goal. As noted above previously filled to bridge to this visit. - Microalbumin / creatinine urine ratio; Future - Microalbumin / creatinine urine ratio - Hemoglobin A1c; Future - Hemoglobin A1c 2. Stage 3a chronic kidney disease (HCC) (CMS/HCC) - Microalbumin / creatinine urine ratio; Future - Microalbumin / creatinine urine ratio 3. Microalbuminuria - Microalbumin / creatinine urine ratio; Future - Microalbumin / creatinine urine ratio 4. 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 (CMS/HCC) Chronic problem, stable. See the warfarin monitoring notes on a monthly basis. In prescribing a renewal to their current [...] order to credit prescription drug management) - warfarin (Coumadin) 4 MG tablet; TAKE ONE TABLET BY MOUTH EVERY EVENING FOR A TOTAL OF 5MG Dispense: 90 tablet; Refill: 1 5. group home current use of anticoagulant As above Chronic problem The patient meets the criteria for polypharmacy; 5 or more prescriptions or multi-morbidity definedas 5 or more diagnoses. Polypharmacy can significantly increase the risk of preventable adverse drug events and negatively impact adherence. Consideration of diverse factors such as clinician agreement, patient perspective,and de-prescribing, as appropriate can improve patient outcomes while simplifying care. This requires longitudinal monitoring as there is at least a moderate risk of morbidity and requires at least amoderate degree of evaluation and management. documented in this encounterRay County Memorial [id number] Miscellaneous Notes* Telephone Encounter - Magalis Harris MA - 02/08/2025 12:30 PM EDT Copied from from pt: Rafael, this is Jocelyn Sen, [phone]. I forgot to ask Dr. Persaud when I should start taking my warfare again and he's going to be off for a while, so I thought I'd better try and find out now. [phone], thank you. * Telephone Encounter - Magalis SAPPHIRE Harris - 02/08/2025 12:29 PM EDT Copied from : The is the [facility] pharmacy calling concerning the prescriptions for Wilda Sen birthday [id number] have a prescription for Roberto F on 250 mg tablets. We have noted on our file as well as the second page of the prescription that came across that she is allergic to cipro box. So I did not know if this was addressed. I do not have more detailed information than that, but I was just calling to see if you actually did want to continue with the lev flexes or wanted to prescribe an alternate. I will send the script clarification if I can as well. Thank you so much by. documented in this encounterRay County Memorial HospitalLbgqrlexov01-40-5013 Evaluation note* Diagnosis Type 2 diabetes mellitus with stage 3a chronic kidney disease, without long-term current use of insulin (HCC) ([facility]) documented in this encounter [facility] HospitalSokgpndqxc10-98-4811 History of Present illness Narrative* Felicia Farmer DO - 08/04/2024 1:00 PM EST Images from the original note were not included. Assessment/Plan Diagnoses and all orders for this visit: Type 2 diabetes mellitus without complication, without long-term current use of insulin ([facility]) - Diabetes Mellitus without sign of diabetic [...] lid scrubs were recommended. documented in this encounterRay County Memorial HospitalLzffdhtgeh55-35-1309 Evaluation note* Diagnosis Glaucoma suspect of both eyes- Primary Unspecified preglaucoma Type 2 diabetes mellitus with stage 3a chronic kidney disease, without long-term current use of insulin ([facility]) ([facility]) Dry eyes Unspecified tear film insufficiency Blepharitis of upper and lower eyelids of both eyes, unspecified type documented in this encounter [facility] HospitalMmtenckqae13-32-5464 Hospital Discharge instructions Patient Education 07/12/2024 11:44:44 [...] include: ?8 oz (237 mL) of milk, keciekc-uarvipcghkfr-dciwf milk, and calcium- fortifiedfruit juice. Calcium-fortified means [...] ?Spinach (cooked), rhubarb, beets, sweet potatoes, and Fijian chard. ?Peanuts. ?Potato chips, polish fries, and baked potatoes with skin on. ?Nuts and nut products. ?Chocolate. If you regularly take a diuretic medicine, make sure to eat at least 1 or 2 servings of fruits or vegetables that are high in potassium each day. These include: ?Avocado. ?Banana. ?Sherman, prune, carrot, or tomato juice. ?Baked potato. [...] magnesium, fish oil, or vitamin B6. Take eruv-zra-kimynho and prescription medicines only as told by [...] Casseroles. Pizza. Lasagna. Frozen meals. Potato chips. Japanese fries. The items listed above may not [...] provider. Document Revised: 10/10/2022 Document Reviewed: 10/10/2022 [employer] Patient Education 2023 [employer]. Follow Up Care 02/03/2023 12:01:32 With:CORA AGUIAR, Eugenia Venegas, URL Address: [facility] [employer] [address] [place], [place] [id number]- When: Unknown [facility] Ju [id number] NotePatient Education Nephrology Dietary Guidelines to Help [...] ? 8 oz (237 mL) of milk, jtimjli-nmczrbfkxbrb-wsqyx milk, and calcium- fortifiedfruit juice. Calcium-fortified means [...] Spinach (cooked), rhubarb, beets, sweet potatoes, and Fijian chard. ? Peanuts. ? Potato chips, polish fries, and baked potatoes with skin on. ? Nuts and nut products. ? Chocolate. ??? If you regularly take a diuretic medicine, make sure to eat at least 1 or 2 servings of fruits or vegetables that are high in potassium each day. These include: ? Avocado. ? Banana. ? Sherman, prune, carrot, or tomato juice. ? Baked [...] fish oil, or vitamin B6. ??? Take vteq-gyv-iouwlvm and prescription medicines only as told by your health (more content not included)...[facility]12-19-2024 Telephone encounter Note* Telephone Encounter - [...] her INR after the new year holiday. [facility] HospitalRojbvmsqfq19-70-1069 Miscellaneous Notes* Telephone Encounter - Jayme Perez [...] in about 2 weeks. documented in this encounterRay County Memorial HospitalWlvhnzptkd04-53-4631 Telephone encounter Note* Telephone Encounter - Angeles Bonilla - 06/17/2024 9:11 AM EST Left voicemail to continue current dose and recheck in about [address] [facility] Telephone encounter Note* Telephone Encounter - Jayme Perez MD - 06/17/2024 7:12 AM EST She is right on the border of the elevated. I would just continue the same dose and get rechecked it again in about [address] [facility]Hzlqrhhmkz26-76-0145 History of Present illness Narrative* Jayme Perez [...] problem, stable, comanaged with Cardiology. Asymptomatic. 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 We discussed how this [...] 60 tablet; Refill: 0 documented in this encounterRay County Memorial HospitalVcdoooqowj12-39-1465 Hospital Discharge instructions Patient Education 10/14/2023 09:33:38 [...] include: ?8 oz (237 mL) of milk, fcytbwe-xivgrdmcajrt-mrvmv milk, and calcium- fortifiedfruit juice. Calcium-fortified means [...] ?Spinach (cooked), rhubarb, beets, sweet potatoes, and Fijian chard. ?Peanuts. ?Potato chips, polish fries, and baked potatoes with skin on. ?Nuts and nut products. ?Chocolate. If you regularly take a diuretic medicine, make sure to eat at least 1 or 2 servings of fruits or vegetables that are high in potassium each day. These include: ?Avocado. ?Banana. ?Sherman, prune, carrot, or tomato juice. ?Baked potato. [...] magnesium, fish oil, or vitamin B6. Take aulo-ksy-ryjudcb and prescription medicines only as told by [...] Casseroles. Pizza. Lasagna. Frozen meals. Potato chips. Japanese fries. The items listed above may not [...] provider. Document Revised: 10/10/2022 Document Reviewed: 10/10/2022 [employer] Patient Education 2022 [employer]. Follow Up Care 08/13/2023 10:19:44 With:CORA AGUIAR, Eugenia Venegas, URL Address: [address] [place], [place] [id number]- When: Unknown [facility] Ju [id number] Hospital Discharge instructions Patient Education 08/13/2023 11:34:50 [...] including vitamins, herbs, eye drops, creams, and stye-zmz-boilbll medicines. Any problems you or family members [...] provider tells you to take them. ?Taking tcwa-cuc-egpfewn medicines, vitamins, herbs, and supplements. Eating and [...] provider. Document Revised: 11/06/2022 Document Reviewed: 03/04/2022 [employer] Patient Education 2022 [employer]. Follow Up Care 08/12/2023 14:37:00 With:ANGELITO AGUIAR, Renato Arzola, URL Address: [facility] [address], [place] [id number] When: Unknown Comments:sched ureteroscopyf/u w/ [facility] scheduled 10/14/23 [facility] 01-25-2024 History of Present illness [...] 0.55 - 1.02 mg/dL Final [facility] EGFR-AF SRI LANKAN 07/22/2023 >60 >=60 Final TBH EGFR-NON AF SRI LANKAN 07/22/2023 55 (L) >=60 Final BUN CREATININE [...] disease. 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 documented in this encounterRay County Memorial HospitalYpjzpqyfdb42-43-3996 Evaluation note* Encounter Date Diagnosis Assessment Notes [...] care as directed rx of steroid and [place], cool mist humidification. May use Tylenol as directed. Immediate eval for signs of respiratory distress, difficulty breathing poor PO intake, signs of dehydration, fever, or other concerning symptoms. Otherwise, follow up with PCP in 2-3 days. Patient verbalizes understanding and is agreeable to treatment plan. Patient sent home in stable condition. [employer] Other 08-11-2022 NotePROCEDURE: XR FOOT LT MIN 3 VIEWS COMPARISON: None. HISTORY: Pain in left foot FINDINGS: BONES:No acute fracture or dislocation. Mild enthesopathic spurring of the calcaneus. SOFT TISSUES:Negative. No visible soft tissue swelling. EFFUSION:None visible. OTHER: Negative. IMPRESSION: Mild enthesopathic spurring of the calcaneus Electronically authenticated by: BLANCA ZAVALA Date: 2022-02-21 07:28[facility] Future Appointments Appointment Date:07/12/2024 10:45:00 AM Scheduled Provider:Eugenia SHEPHERD MD Location:[facility] Appointment Type:URO Office Visit [facility] Evaluation + Plan note Future Appointments Appointment Date:07/12/2024 10:45:00 AM Scheduled Provider:Eugenia SHEPHERD MD Location:[facility] Appointment Type:URO Office Visit Diagnostic Tests Pending * Calculi Analysis [facility] App[facility]ments Appointment Date:10/14/2023 09:15:00 AM Scheduled Provider:Eugenia SHEPHERD MD Location:[facility] Appointment Type:URO Office Visit Appointment Date:07/12/2024 10:45:00 AM Scheduled Provider:Eugenia SHEPHERD MD Location:[facility] Appointment Type:URO Office Visit [facility] evalunuykn noteNort [employer] Other evaluation noteNo assessment information available [facility] Work Phone: evaluation note* Diagnosis Chronic [...] hazards to health 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, 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 Psoriatic arthropathy (CMS/HCC) Psoriatic arthropathy Gastroesophageal reflux disease without esophagitis Esophageal reflux documented in this encounter [facility] HealthcareEvaluation note* Diagnosis 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 (CMS/HCC)- Primary Atrial fibrillation group home current use of anticoagulant Type 2 diabetes mellitus with stage 3a chronic kidney disease, without long-term current use of insulin (HCC) ([facility]/HCC) Stage 3a chronic kidney disease (HCC) ([facility]/HCC) Microalbuminuria Proteinuria Unexplained weight loss Loss of weight Chronic fatigue Other malaise and fatigue Sleep arousal disorder documented in [facility] encounter [facility]* Diagnosis Type 2 diabetes mellitus with stage 3a chronic kidney disease, without long-term current use of insulin (HCC) ([facility]/HCC) documented in [facility] encounter [facility]* Diagnosis 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 ([facility]/HCC) Atrial fibrillation documented in this encounter [facility]* Diagnosis Type 2 diabetes mellitus with diabetic microalbuminuria, without long-term current use of insulin ([facility]/HCC)- Primary Encounter for Medicare annual wellness exam Advance directive discussed with patient Encounter for screening for other disorder Screening for alcohol problem Screening for alcoholism Screening mammogram, encounter for documented in this encounter [facility]* Diagnosis Encounter for Medicare annual wellness exam- Primary Advance directive discussed with patient Encounter for screening for other disorder Screening for alcohol problem Screening for alcoholism Screening mammogram, encounter for Iron deficiency Disorders of iron metabolism Chronic diastolic heart failure ([facility]/HCC) Chronic diastolic heart failure 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 ([facility]/HCC) Atrial fibrillation Stage 3a chronic kidney disease (HCC) ([facility]/HCC) Age-related osteoporosis without current pathological fracture ([facility]/HCC) Psoriatic arthropathy ([facility]/HCC) Psoriatic arthropathy Type 2 diabetes mellitus with stage 3a chronic kidney disease, without long-term current use of insulin (HCC) ([facility]) Type 2 diabetes mellitus with diabetic microalbuminuria, without long-term current use of insulin ([facility]/HCC) Immunosuppressed status ([facility]) documented in this encounter [facility]* Diagnosis Vertigo- Primary Dizziness and giddiness documented in this encounter [facility]* Diagnosis Vertigo- Primary Dizziness and giddiness documented in this encounter [facility]* Diagnosis Vertigo- Primary Dizziness and giddiness documented in this encounter [facility]* Diagnosis Vertigo- Primary Dizziness and giddiness 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 (HCC) Atrial fibrillation group home current use of anticoagulant Medication monitoring encounter Encounter for therapeutic drug monitoring documented in this encounter [facility]* Diagnosis Vertigo- Primary Dizziness and giddiness documented in this encounter [facility] HealthcareEvaluation note* Diagnosis Vertigo- Primary Dizziness and giddiness documented in this encounter [facility] HealthcareEvaluation note* Diagnosis Kidney stone on left side documented in this encounter [facility] HealthcareEvaluation note* Diagnosis Kidney stone on left side- Primary Hospital discharge follow-up Other follow-up examination documented in this encounter [facility] HealthcareHistory general Narrative - [facility] [employer] Other History general Narrative - Reported* Type Description Date Medical History Arthritis Medical History diabetes mallitus Surgical History cataract surgery [facility] [employer] Other Hospital course Narrative No data available for this section [facility] Discharge instructions No data available for this section [facility] Discharge instructions Additional Instructions DISCHARGE INSTRUCTIONS FOR URETEROSCOPY, LASER LITHOTRIPSY, STONE EXTRACTION, AND STENT PLACEMENT There are no incisions or dressings to be concerned with, as the procedure was performed inside the urinary system. For 24 hours after surgery: -No driving or operating machinery. -Do not make important decisions. -Do not consume alcohol, sleeping pills. STENT PLACEMENT I did not replace the stent. You could have some moderate flank pain due to some swelling of the ureter which usually goes away within 24 to 36 hours. DIET You may resume your normal diet, but you may want to start slowly and avoid spicy food, caffeine, carbonated beverages, and alcohol- especially if you have a stent. Your diet and fluid intake may make irritation form the stent worse. ACTIVITY You may resume your normal activities, although you should take it easy on the day of the procedure. Minimizing activity may decrease the back discomfort and irritation from the stent, if present. MEDICATIONS -You may resume your home medications unless instructed otherwise. -Hold aspirin, ibuprofen, Coumadin (warfarin), and other blood thinners until your office visit (we'll discuss when to resume these medications). -Take your prescribed medications as directed, including your antibiotics. You may also be given a prescription for pain medicine, or medicines to help with the bladder irritation from the stent, if present. THINGS TO WATCH FOR WHICH WOULD REQUIRE AN EMERGENCY ROOM VISIT (OR CALL 911) (This is not a complete list) -Fever over 101.5 degrees Fahrenheit, with or without chills. -Severe bleeding. -Severe drug reactions with itching, hives, or rash, or severe flank pain. -Tenderness or swelling of the calves, chest pain, or shortness of breath. FOLLOW UP -[Please call the office to arrange for your post-operative appointment (with X- Ray) in about six months. [ ][facility] Work Phone: Progress note No data available for this section [facility] Reason for referral (narrative)No reason for referral information availableSum[facility]tr Work Phone: Reason for visit Narrative* Rehabilitation - Outpatient (Routine) - Authorized Specialty Diagnoses / Procedures Referred By Contac t Referred To Contact Physical Therapy Diagnoses Vertigo Procedures [place] OFFICE/OUTPATIENT NEW HIGH MDM 60 MINUTES Jayme Perez MD [address] [address] Phone: tel: fax:[phone] Joselyn Narvaez PT Referral ID Status Reason Start Date Expiration Date Visits Requested Visits Authorized [id number] Authorized Specialty Services Required 12/22/2024 06/20/2025 10 10 [facility] Narrative* Rehabilitation - Outpatient (Routine) - Authorized Specialty Diagnoses / Procedures Referred By Contac t Referred To Contact Physical Therapy Diagnoses Vertigo Procedures [place] OFFICE/OUTPATIENT NEW HIGH MDM 60 MINUTES Jayme Perez MD [address] [place] [address] Phone: tel: fax: Joselyn Narvaez PT Referral ID Status Reason Start Date Expiration Date Visits Requested Visits Authorized [id number] Authorized Specialty Services Required 12/22/2024 07/13/2025 10 30 [facility] Summary Purpose Family History No Family History Records Found Relationship Condition Age at Onset Recorded Date/T ramiro Not Specified Heart disease Unknown father Cystic fibrosis Unknown Relationship Condition Age at Onset Recorded Date/T ramiro mother Heart disease Unknown father Cystic fibrosis Unknown father Unknown mother Unknown Advance Directives No Advanced Directives Records Found Advance Directive Response Recorded Date/ Time Advance Directives No May 06, 2017 4:21pm Advance Directive Response Recorded Date/ Time Advance Directives No May 06, 2017 5:21pm Chief Complaint and Reason for Visit Chief Complaint Kidney Stones Kidney Stones Chief Complaint Admit Date Unknown February 04, 2025 1:14 pm Chief Complaint Admit Date Unknown February 04, 2025 1:14 pm N20.0 February 11, 2025 10: 07am Chief Complaint Admit Date Unknown February 04, 2025 1:14 pm N20.0 February 11, 2025 10: 07am Kidney Stone February 14, 2025 11: 52am Additional Source Comments INFORMATION SOURCE (unrecogn ized section and content) DATE CREATED AUTHOR 12/20/2022 [facility] DATE CREATED AUTHOR AUTHOR'S ORGANIZ ATION 02/09/2025 [facility] EPIC DATE CREATED AUTHOR AUTHOR'S ORGANIZ ATION 02/24/2025 [facility] DATE CREATED AUTHOR AUTHOR'S ORGANIZ ATION 02/26/2025 [facility] Patient Care team informatio n (unrecognized section and content) Team Status: Active Member Role Status Dates Jayme Perez MD Primary Care Provider Active Team Status: Inactive Member Role Status Dates Jayme Perez MD Primary Care Provider Active Eugenia Shepherd MD Attending Provider Active Momd Teacher Relationship Specialty Start Date End Date Jayme Perez MD [address] [place] [address] (Fax) PCP - General Family Medicine 11/25/22 Jayme Perez MD [address] [place] [address] (Fax) PCP - ACO Reach 12/05/22 Momd Teacher Relationship Specialty Start Date End Date Jayme Perez MD [address] [place] [address] (Fax) PCP - General Family Medicine 11/25/22 Jayme Perez MD [address] [place] [address] (Fax) PCP - ACO Reach 12/05/22 Team Status: Inactive Member Role Status Dates Jayme Perez MD Primary Care Provider Active Start: March 31, 2024 End: March 31, 2024 Radames Monteiro MD Attending Provider Active St art: March 31, 2024 End: March 31, 2024 Momd Teacher Relationship Specialty Start Date End Date Jamye Perez MD [address] [place] [address] [phone] (Fax) PCP - General Family Medicine 11/25/22 Jayme Perez MD [address] [phone] (Fax) PCP - ACO Reach 12/05/22 Felicia Farmer DO [address] [place] [address] [address] [place] [address] Referring Physician Ophthalmology 08/21/23 Renato Santacruz MD [address] [place] [address] Referring Physician Urology 08/21/23 Radames Monteiro MD [address] [facility] Professional [address] [place] [phone] Referring Physician Rheumatology 08/21/23 Momd Teacher Relationship Specialty Start Date End Date Jayme Perez MD [address] [phone] (Fax) PCP - General Family Medicine 11/25/22 Jayme Perez MD [address] [place] [address] (Fax) PCP - ACO Reach 12/05/22 Felicia Farmer DO [address] [place] [phone] Referring Physician Ophthalmology 08/21/23 Renato Santacruz MD [address] [place] [phone] Referring Physician Urology 08/21/23 Radames Monteiro MD [address] [facility] Professional [address] [place] [phone] Referring Physician Rheumatology 08/21/23 Momd Teacher Relationship Specialty Start Date End Date Jayme Perez MD [address] [place] [address] (Fax) PCP - General Family Medicine 11/25/22 Jayme ePrez MD [address] [place] [address] (Fax) PCP - ACO Reach 12/05/22 Felicia Farmer DO [address] [place] [phone] Referring Physician Ophthalmology 08/21/23 Renato Santacruz MD [address] [place] [address] Referring Physician Urology 08/21/23 Radames Monteiro MD [address] Professional [address] [place] [phone] Referring Physician Rheumatology 08/21/23 Momd Teacher Relationship Specialty Start Date End Date Jayme Perez MD [address] [place] [address] (Fax) PCP - General Family Medicine 11/25/22 Jayme Perez MD [address] [place] [address] (Fax) PCP - ACO Reach 12/05/22 Felicia Farmer DO [address] [place] [phone] Referring Physician Ophthalmology 08/21/23 Renato Santacruz MD [address] [place] [address] Referring Physician Urology 08/21/23 Radames Monteiro MD [address] [place] [phone] Referring Physician Rheumatology 08/21/23 Momd Teacher Relationship Specialty Start Date End Date Jayme Perez MD [address] [place] [address] (Fax) PCP - General Family Medicine 11/25/22 Jayme Perez MD [address] [place] [address] (Fax) PCP - ACO Reach 12/05/22 Felicia Farmer DO [address] [place] [address] Referring Physician Ophthalmology 08/21/23 Renato Santacruz MD [address] [place] [address] Referring Physician Urology 08/21/23 Radames Monteiro MD [address] Professional [address] [place] [phone] Referring Physician Rheumatology 08/21/23 Momd Teacher Relationship Specialty Start Date End Date Jayme Perez MD [address] [place] [address] (Fax) PCP - General Family Medicine 11/25/22 Jayme Perez MD [address] [place] [address] (Fax) PCP - ACO Reach 12/05/22 Felicia Farmer DO [address] [place] [address] Referring Physician Ophthalmology 08/21/23 Renato Santacruz MD [address] [place] [phone] Referring Physician Urology 08/21/23 Radames Monteiro MD [address] Professional [address] [place] [phone] Referring Physician Rheumatology 08/21/23 Momd Teacher Relationship Specialty Start Date End Date Jayme Perez MD [address] [place] [address] (Fax) PCP - General Family Medicine 11/25/22 Jayme Perez MD [address] [place] [address] (Fax) PCP - ACO Reach 12/05/22 Felicia Farmer DO [address] [place] [address] Referring Physician Ophthalmology 08/21/23 Renato Santacruz MD [address] [email or web address] [address] Referring Physician Urology 08/21/23 Radames Monteiro MD [address] [facility] Professional [address] [place] [phone] Referring Physician Rheumatology 08/21/23 Momd Teacher Relationship Specialty Start Date End Date Jayme Perez MD [address] [place] [address] (Fax) PCP - General Family Medicine 11/25/22 Jayme Perez MD [address] [place] [address] (Fax) PCP - ACO Reach 12/05/22 Felicia Farmer DO [address] [place] [address] Referring Physician Ophthalmology 08/21/23 Renato Santacruz MD [address] [place], [place] [phone] Referring Physician Urology 08/21/23 Radames Monteiro MD [address] [facility] [address] [place] [address] Referring Physician Rheumatology 08/21/23 Momd Teacher Relationship Specialty Start Date End Date Jayme Perez MD [address] [place] [address] (Fax) PCP - General Family Medicine 11/25/22 Jayme Perez MD [address] [place] [address] (Fax) PCP - ACO Reach 12/05/22 Felicia Farmer DO [address] [place], [place] [address] [address] [place] [phone] Referring Physician Ophthalmology 08/21/23 Renato Santacruz MD [address] [place], [place] [phone] Referring Physician Urology 08/21/23 Radames Monteiro MD [address] [facility] Professional [address] [place] [phone] Referring Physician Rheumatology 08/21/23 Momd Teacher Relationship Specialty Start Date End Date Jayme Perez MD [address] [place] [address] (Fax) PCP - General Family Medicine 11/25/22 Jayme Perez MD [address] [place] [address] (Fax) PCP - ACO Reach 12/05/22 Felicia Farmer DO [address] [place] [address] Referring Physician Ophthalmology 08/21/23 Renato Santacruz MD [address] [place] [address] Referring Physician Urology 08/21/23 Radaems Monteiro MD [address] Professional [address] [place] [address] Referring Physician Rheumatology 08/21/23 Momd Teacher Relationship Specialty Start Date End Date Jayme Perez MD [address] [place] [address] (Fax) PCP - General Family Medicine 11/25/22 Jayme Perez MD [address] [place] [address] (Fax) PCP - ACO Reach 12/05/22 Felicia Farmer DO [address] [place] [address] Referring Physician Ophthalmology 08/21/23 Renato Santacruz MD [address] [place] [address] Referring Physician Urology 08/21/23 Radames Monteiro MD [address] Professional [address] [place] [address] Referring Physician Rheumatology 08/21/23 Momd Teacher Relationship Specialty Start Date End Date Jayme Perez MD [address] [place] [address] (Fax) PCP - General Family Medicine 11/25/22 Jayme Perez MD [address] [place] [address] (Fax) PCP - ACO Reach 12/05/22 Felicia Farmer DO [address] [place] [address] Referring Physician Ophthalmology 08/21/23 Renato Santacruz MD [address] [place] [address] Referring Physician Urology 08/21/23 Radames Monteiro MD [address] [facility] Professional [address] [place] [phone] Referring Physician Rheumatology 08/21/23 Momd Teacher Relationship Specialty Start Date End Date Jayme Perez MD [address] [place] [address] (Fax) PCP - General Family Medicine 11/25/22 Jayme Perez MD [address] [place] [address] (Fax) PCP - ACO Reach 12/05/22 Felicia Farmer DO [address] [place] [address] Referring Physician Ophthalmology 08/21/23 Renato Santacruz MD [address] [place] [phone] Referring Physician Urology 08/21/23 Radames Monteiro MD [address] [facility] [address] [place] [address] Referring Physician Rheumatology 08/21/23 Momd Teacher Relationship Specialty Start Date End Date Jayme Perez MD [address] [place] [address] (Fax) PCP - General Family Medicine 11/25/22 Jayme Perez MD [address] [place] [address] (Fax) PCP - ACO Reach 12/05/22 Felicia Farmer DO [facility] [address] [place] [phone] Referring Physician Ophthalmology 08/21/23 Renato Santacruz MD [address] [place] [phone] Referring Physician Urology 08/21/23 Radames Monteiro MD [address] [facility] Professional [address] [place] [phone] Referring Physician Rheumatology 08/21/23 Momd Teacher Relationship Specialty Start Date End Date Jayme Perez MD [address] [place] [address] (Fax) PCP - General Family Medicine 11/25/22 Jayme Perez MD [address] [place] [address] PCP - ACO Reach 12/05/22 Felicia Farmer DO [address] [place] [address] Referring Physician Ophthalmology 08/21/23 Renato Santacruz MD [address] [place] [address] Referring Physician Urology 08/21/23 Radames Monteiro MD [address] Professional [address] [place] [address] Referring Physician Rheumatology 08/21/23 Momd Teacher Relationship Specialty Start Date End Date Jayme Perez MD [address] [place] [address] (Fax) PCP - General Family Medicine 11/25/22 Jayme Perez MD [address] [place] [address] (Fax) PCP - ACO Reach 12/05/22 Felicia Farmer DO [address] [place] [address] Referring Physician Ophthalmology 08/21/23 Renato Santacruz MD [address] [place] [address] Referring Physician Urology 08/21/23 Radames Monteiro MD [address] Professional [address] [place] [address] Referring Physician Rheumatology 08/21/23 Momd Teacher Relationship Specialty Start Date End Date Jayme Perez MD [address] [place] [address] (Fax) PCP - General Family Medicine 11/25/22 Jayme Perez MD [address] [place] [address] (Fax) PCP - ACO Reach 12/05/22 Felicia Farmer DO [address] [place] [address] Referring Physician Ophthalmology 08/21/23 Renato Santacruz MD [address] [place] [address] Referring Physician Urology 08/21/23 Radames Monteiro MD [address] [facility] [address] [phone] Referring Physician Rheumatology 08/21/23 Momd Teacher Relationship Specialty Start Date End Date Jayme Perez MD [address] [place] [address] (Fax) PCP - General Family Medicine 11/25/22 Jayme Perez MD [address] [place] [address] (Fax) PCP - ACO Reach 12/05/22 Felicia Farmer DO [address] [place] [address] Referring Physician Ophthalmology 08/21/23 Renato Santacruz MD [address] [place] [phone] Referring Physician Urology 08/21/23 Radames Monteiro MD [address] [facility] [address] [place] [phone] Referring Physician Rheumatology 08/21/23 Momd Teacher Relationship Specialty Start Date End Date Jayme Perez MD [address] [place] [address] (Fax) PCP - General Family Medicine 11/25/22 Jayme Perez MD [address] [place] [address] (Fax) PCP - ACO Reach 12/05/22 Felicia Farmer DO [address] [place] [address] Referring Physician Ophthalmology 08/21/23 Renato Santacruz MD [address] [place] [phone] Referring Physician Urology 08/21/23 Radames Monteiro MD [address] [facility] [address] [place] [phone] Referring Physician Rheumatology 08/21/23 Momd Teacher Relationship Specialty Start Date End Date Jayme Perez MD [address] [place] [address] (Fax) PCP - General Family Medicine 11/25/22 Jayme Perez MD [address] [place] [address] PCP - ACO Reach 12/05/22 Felicia Farmer DO [address] [place] [address] Referring Physician Ophthalmology 08/21/23 Renato Santacruz MD [address] [place] [phone] Referring Physician Urology 08/21/23 Radames Monteiro MD [address] Professional [address] [place] [address] Referring Physician Rheumatology 08/21/23 Momd Teacher Relationship Specialty Start Date End Date Jayme Perez MD [address] [place] [address] (Fax) PCP - General Family Medicine 11/25/22 Jayme Perez MD [address] [address] PCP - ACO Reach 12/05/22 Felicia Farmer DO [address] [place] [address] Referring Physician Ophthalmology 08/21/23 Renato Santacruz MD [address] [id number] Referring Physician Urology 08/21/23 Radames Monteiro MD [address] Professional building 1 [place] [address] Referring Physician Rheumatology 08/21/23 Momd Teacher Relationship Specialty Start Date End Date Jayme Perez MD [address] [address] (Fax) PCP - General Family Medicine 11/25/22 Jayme Perez MD [address] [address] (Fax) PCP - ACO Reach 12/05/22 Felicia Farmer DO [address] [place] [address] Referring Physician Ophthalmology 08/21/23 Renato Santacruz MD [address] [place], [place] [phone] Referring Physician Urology 08/21/23 Radames Monteiro MD [address] [facility] Professional building [address] [place] [phone] Referring Physician Rheumatology 08/21/23 Momd Teacher Relationship Specialty Start Date End Date Jayme Perez MD [address] [address] (Fax) PCP - General Family Medicine 11/25/22 Jayme Perez MD [address] [address] (Fax) PCP - ACO Reach 12/05/22 Felicia Farmer DO [address] [place] [address] Referring Physician Ophthalmology 08/21/23 Renato Santacruz MD [address] [place] [phone] Referring Physician Urology 08/21/23 Radames Monteiro MD [email or web address] Professional building 1 [place] [address] Referring Physician Rheumatology 08/21/23 Momd Teacher Relationship Specialty Start Date End Date Jayme Perez MD [address] [place] [address] (Fax) PCP - General Family Medicine 11/25/22 Jayme Perez MD [address] [facility] [address] [place] [address] (Fax) PCP - ACO Reach 12/05/22 Felicia Farmer DO [address] [place] [address] Referring Physician Ophthalmology 08/21/23 Renato Santacruz MD [address] [phone] Referring Physician Urology 08/21/23 Radames Monteiro MD [email or web address] Professional building 1 [place] [address] Referring Physician Rheumatology 08/21/23 Team Status: Inactive Member Role Status Dates Lobito Tapia DO Attending Provider Active S tart: February 04, 2025 End: February 04, 2025 Momd Teacher Relationship Specialty Start Date End Date Jayme Perez MD [address] [place] [address] (Fax) PCP - General Family Medicine 11/25/22 Jayme Perez MD [address] [place] [address] (Fax) PCP - ACO Reach 12/05/22 Felicia Farmer DO [address] [place] [address] Referring Physician Ophthalmology 08/21/23 Renato Santacruz MD [address] [place] [address] Referring Physician Urology 08/21/23 Radames Monteiro MD [address] [facility] Professional building [address] [place] [address] Referring Physician Rheumatology 08/21/23 Team Status: Inactive Member Role Status Dates Jayme Perez MD Primary Care Provider Active Start: February 11, 2025 End: February 11, 2025 [facility] Attending Provider Active Start: February 11, 2025 End: February 11, 2025 Team Status: Inactive Member Role Status Dates Jayme Perez MD Primary Care Provider Active Start: February 14, 2025 End: February 14, 2025 Eugenia Shepherd MD Attending Provider Active St art: February 14, 2025 End: February 14, 2025 Momd Teacher Relationship Specialty Start Date End Date Jayme Perez MD [address] [place] [address] (Fax) PCP - General Family Medicine 11/25/22 Jayme Perez MD [address] [place] [address] (Fax) PCP - ACO Reach 12/05/22 Felicia Farmer DO [address] [place] [address] Referring Physician Ophthalmology 08/21/23 Renato Santacruz MD [address] [place] [address] Referring Physician Urology 08/21/23 Radames Monteiro MD [address] Professional [address] 1 [place] [address] Referring Physician Rheumatology 08/21/23 Goals (unrecognized section and content) Goals may be documented in a n alternate section REASON FOR VISIT (unrecogniz ed section and content) Reason Comments Hyperlipidemia Diabetes Reason Comments Atrial Fibrillation Diabetes Reason Comments Med Refill Reason Comments Diabetic Eye Exam Reason Comments Annual Exam Reason Comments Vertigo Reason Comments Vertigo Reason Comments Med Change Request Reason Comments Follow-up FOR RECORDS PERTAINING TO PATIENTS WHO ARE [...] BE BASED ON THE PRIMARY CLINICAL RECORDS. [facility] provides no warranty or guarantee of the accuracy or completeness of information in this document.
[2025-03-08 12:27] LABS: INR 2.92; Prothrombin Time 27.8 sec (9.0-11.6)
== END 2025-03-08 11:15 | disposition home or self-care (01) ==
LOC: LAB 11:16
PROVIDERS: PCP Family Medicine; Visit Provider Family Medicine
DX: I48.0 Paroxysmal atrial fibrillation (principal); Z79.01 Long term (current) use of anticoagulants; Z51.81 Encounter for therapeutic drug level monitoring
CPT/HCPCS: 36415; 85610

== ENCOUNTER 2025-04-05 10:39 | Outpatient (OUT) | payer MEDICARE, SELFPAY ==
--- OUTSIDE RECORDS SUMMARY | 2025-04-05 10:47 | XMS_ITS | Encounter Summary ---
Author Organization [facility] Address [address] [place] [address] Care Team Providers Care Die Out Worker Name Role Phone Jayme Parham MD Primary Care Provider Jayme Parham MD Unavailable [phone] Mick Farmer DO Unavailable [phone] Renato Santacruz MD Unavailable +[phone] Chuy Wood MD Unavailable [phone] Rebeca Emerson Unavailable [phone] Encounter Details Date Type Department Care Team (Late st Contact Info) Description 08/14/2023 Orders Only [facility] [place] 521 Family Medicine [address] [place] [address] Kimberly, [place], [place] Social History Tobacco Use Types Packs/Day Years [...] as of this encounter Plan of Treatment Not on file documented as of this encounter Visit Diagnoses Not on filedocumented in this encounter Additional Health Concerns Assessment Noted Time PHQ-9 Depression Total Score: 7 05/22/20 2:00 PM EST documented as of this encounter Care Teams Die Out Worker Relationship Specialty Start Date End Date Jayme Parham MD 112 [facility] 100 [place] [address] PCP - General Family Medicine 11/25/22 Jayme Parham MD 112 [facility] 100 [place] [address] PCP - ACO Reach 12/05/22 Mick Farmer DO [address] [place] [address] Referring Physician Ophthalmology 08/21/23 Renato Santacruz MD [address] [place] [address] Referring Physician Urology 08/21/23 Chuy Wood MD [address] [facility] Professional building 1 [place] [address] Referring Physician Rheumatology 08/21/23 Rebeca Emerson, DINA [address] [place], [place] [phone] Optical Design Engineer Family Medicine 03/04/25 03/11/25 documented as of this encounter
--- OUTSIDE RECORDS SUMMARY | 2025-04-05 10:47 | XMS_ITS | Encounter Summary ---
Author Organization [facility] Address [address] [place] [address] Care Team Providers Care Service Delivery Director Name Role Phone Jayme Parham MD Primary Care Provider Jayme Parham MD Unavailable [phone] Mick Farmer DO Unavailable [phone] Renato Santacruz MD Unavailable [phone] Chuy Wood MD Unavailable [phone] Rebeca Emerson DEBT RECOVERY OFFICER Unavailable [phone] Encounter Details Date Type Department Care Team (Late st Contact Info) Description 08/13/2023 Abstract [facility] [place] 521 Family Medicine [address] [place] [address] Jr Jarrell MD [address] [facility] Social History Tobacco Use Types Packs/Day [...] often do you attend chur ch or jain services? Never 12/11/2022 Active Member of Clubs [...] Recorded Patient Health Questionnaire-2 Score 0 02/06/2023 [facility] of Occupat ional Health - Occupational [...] documented as of this encounter Care Teams Service Delivery Director Relationship Specialty Start Date End Date Jayme Parham MD [address] [address] PCP - General Family Medicine 11/25/22 Jayme Parham MD [address] [address] PCP - ACO Reach 12/05/22 Mick Farmer DO [address] [place] [address] [address] [place] [address] Referring Physician Ophthalmology 08/21/23 Renato Santacruz MD [address] [place] [address] Referring Physician Urology 08/21/23 Chuy Wood MD [address] [facility] Professional building 1 [place] [address] Referring Physician Rheumatology 08/21/23 Rebeca Emerson, DEBT RECOVERY OFFICER [address] [place], [place] [phone] Fitness And Wellness Director Family Medicine 03/04/25 03/11/25 documented as of this encounter
--- OUTSIDE RECORDS SUMMARY | 2025-04-05 10:47 | XMS_ITS | Encounter Summary ---
Author Organization [facility] Address [address] [place] [address] Care Team Providers Care Make Up Editor Name Role Phone Jayme Parham MD Primary Care Provider [phone] Jayme Parham MD Unavailable [phone] Mick Farmer DO Unavailable [phone] Renato Santacruz MD Unavailable [phone] Chuy Wood MD Unavailable [phone] Rebeca Emerson INSURANCE SALES MANAGER Unavailable [phone] Encounter Details Date Type Department Care Team (Late st Contact Info) Description 08/12/2023 Abstract [facility] [place] 521 Family Medicine [address] [place] [address] Jayme Parham MD 112 [facility] [address] [place], [place] [id number] Social History Tobacco Use Types Packs/Day Years [...] 12/11/2022 How often do you attend chur [employer] or evangelical services? Never 12/11/2022 Active Member of Clubs [...] documented as of this encounter Care Teams Make Up Editor Relationship Specialty Start Date End Date Jayme Parham MD 112 [facility] 100 [place] [address] PCP - General Family Medicine 11/25/22 Jayme Parham MD 112 [facility] 100 [place] [address] PCP - ACO Reach 12/05/22 Mick Farmer DO [address] [facility] [address] [place] [address] Referring Physician Ophthalmology 08/21/23 Renato Santacruz MD [address] [place] [address] Referring Physician Urology 08/21/23 Chuy Wood MD [address] [facility] Professional building 1 [place] [address] Referring Physician Rheumatology 08/21/23 Rebeca Emerson, DINA [address] [place] [address] Agricultural Pilot Family Medicine 03/04/25 03/11/25 documented as of this encounter
--- OUTSIDE RECORDS SUMMARY | 2025-04-05 10:47 | XMS_ITS | Encounter Summary ---
Author Organization [facility] Address [address] [place] [address] Care Team Providers Care Highway Commissioner Name Role Phone Jayme Parham MD Primary Care Provider Jayme Parham MD Unavailable [phone] Mick Farmer DO Unavailable [phone] Renato Santacruz MD Unavailable [phone] Chuy Wood MD Unavailable [phone] Rebeca Emerson Unavailable [phone] Encounter Details Date Type Department Care Team (Late st Contact Info) Description 08/14/2023 Abstract [facility] [place] 521 Family Medicine [address] [place] [address] Renato Santacruz MD [address] [place] [address] Social History Tobacco Use Types Packs/Day Years [...] often do you attend chur ch or gnosticist services? Never 12/11/2022 Active Member of Clubs [...] documented as of this encounter Care Teams Highway Commissioner Relationship Specialty Start Date End Date Jayme Parham MD [address] [place] [address] PCP - General Family Medicine 11/25/22 Jayme Parham MD [address] [facility] [address] [place] [address] PCP - ACO Reach 12/05/22 Mick Farmer DO [address] [facility] [address] [place] [address] Referring Physician Ophthalmology 08/21/23 Renato Santacruz MD [address] [place] [address] Referring Physician Urology 08/21/23 Chuy Wood MD [address] [facility] Professional building 1 [place] [phone] Referring Physician Rheumatology 08/21/23 Rebeca Emerson, DINA [address] [place] [address] Pastoral Ministries Professor Family Medicine 03/04/25 03/11/25 documented as of this encounter
--- OUTSIDE RECORDS SUMMARY | 2025-04-05 10:47 | XMS_ITS | Encounter Summary ---
Author Organization [facility] Address [address] [place] [address] Care Team Providers Care Transportation Solutions Manager Name Role Phone Jayme Parham MD Primary Care Provider Jayme Parham MD Unavailable [phone] Mick Farmer DO Unavailable [phone] Renato Santacruz MD Unavailable [phone] Chuy Wood MD Unavailable [phone] Rebeca Emerson PRODUCT SAFETY AND STANDARDS ENGINEER Unavailable [phone] Encounter Details Date Type Department Care Team (Late st Contact Info) Description 09/03/2023 Orders Only [facility] [place] 521 Family Medicine [address] [place] [address] Jayme Parham MD 112 [facility] [address] [place] [address] Social History Tobacco Use Types [...] 12/11/2022 How often do you attend chur [place] or latter day services? Never 12/11/2022 Active [...] Recorded Patient Health Questionnaire-2 Score 0 02/06/2023 [facility] - Occupational Stress Questionnaire Answer [...] documented as of this encounter Care Teams Transportation Solutions Manager Relationship Specialty Start Date End Date Jayme Parham MD 112 [facility] 100 [place] [address] PCP - General Family Medicine 11/25/22 Jayme Parham MD 112 [facility] [address] [place] [address] PCP - ACO Reach 12/05/22 Mick Farmer DO 278 [facility] [address] [place] [address] Referring Physician Ophthalmology 08/21/23 Renato Santacruz MD [address] [place] [address] Referring Physician Urology 08/21/23 Chuy Wood MD [address] [facility] Professional building 1 [place] [address] Referring Physician Rheumatology 08/21/23 Rebeca Emerson, DINA [address] [place] [address] Director Sales Training Family Medicine 03/04/25 03/11/25 documented as of this encounter
--- OUTSIDE RECORDS SUMMARY | 2025-04-05 10:48 | XMS_ITS | Encounter Summary ---
Author Organization [facility] Address [address] [place] [address] Care Team Providers Care Administrative Project Coordinator Name Role Phone Jayme Parham MD Primary Care Provider [phone] Jayme Parham MD Unavailable [phone] Mick Farmer DO Unavailable [phone] Renato Santacruz MD Unavailable [phone] Chuy Wood MD Unavailable [phone] Rebeca Emerson Unavailable [phone] Encounter Details Date Type Department Care Team (Late st Contact Info) Description 01/13/2025 Orders Only [facility] [place] [address] Family [address] [place] [address] Kimberly, [place], [place] Vertigo; 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 (HCC); Unsteady [...] any clubs o r organizations such as baptism groups, unions, fraternal or athletic groups, or [...] Recorded Patient Health Questionnaire-2 Score 0 11/04/2024 [facility] [place] of Occupat ional Health - Occupational Stress [...] any time in the past 12 m [facility], were you homeless or living in [...] documented as of this encounter Care Teams Administrative Project Coordinator Relationship Specialty Start Date End Date Jayme Parham MD [address] [place] [address] PCP - General Family Medicine 11/25/22 Jayme Parham MD [address] [facility] [address] [place] [address] PCP - ACO Reach 12/05/22 Mick Farmer DO [address] [place] [address] Referring Physician Ophthalmology 08/21/23 Renato aSntacruz MD 290 [place] [address] Referring Physician Urology 08/21/23 Chuy Wood MD [address] [facility] Professional building 1 [place] [address] Referring Physician Rheumatology 08/21/23 Rebeca Emerson, DINA [address] [place] [address] Appraiser Auditor Family Medicine 03/04/25 03/11/25 documented as of this encounter
--- OUTSIDE RECORDS SUMMARY | 2025-04-05 10:48 | XMS_ITS | Encounter Summary ---
Author Organization [facility] Address [address] [place] [address] Care Team Providers Care Classified Copy Control Clerk Name Role Phone Jayme Parham MD Primary Care Provider Jayme Parham MD Unavailable [phone] Mick Farmer DO Unavailable [phone] Renato Santacruz MD Unavailable [phone] Chuy Wood MD Unavailable [phone] Rebeca Emerson Unavailable [phone] Encounter Details Date Type Department Care Team (Late st Contact Info) Description 07/17/2023 Abstract [facility] [place] 521 Family Medicine 521 [place] [address] Alban Montilla MD [address] [place], [place] [address] Social History Tobacco Use Types Packs/Day Years [...] often do you attend chur ch or baptist services? Never 12/11/2022 Active Member of Clubs [...] documented as of this encounter Care Teams Classified Copy Control Clerk Relationship Specialty Start Date End Date Jayme Parham MD 112 [address] [place] [address] PCP - General Family Medicine 11/25/22 Jayme Parham MD [address] [address] [place] [address] PCP - ACO Reach 12/05/22 Mick Farmer DO [address] [place] [address] Referring Physician Ophthalmology 08/21/23 Renato Santacruz MD [address] [place] [address] Referring Physician Urology 08/21/23 Chuy Wood MD [address] [facility] Professional building 1 [place] [address] Referring Physician Rheumatology 08/21/23 Rebeca Emerson, CHENILLE MACHINE OPERATOR [address] [place], [place] [phone] Die Sinking Machine Operator Family Medicine 03/04/25 03/11/25 documented as of this encounter
--- OUTSIDE RECORDS SUMMARY | 2025-04-05 10:48 | XMS_ITS | Encounter Summary ---
Author Organization [facility] Address [address] [place] [address] Care Team Providers Care Supervisor Road Administrator Name Role Phone Jayme Parham MD Primary Care Provider Jayme Parham MD Unavailable [phone] Mick Farmer DO Unavailable [phone] Renato Santacruz MD Unavailable [phone] Chuy Wood MD Unavailable Rebeca Emerson Unavailable [phone] Encounter Details Date Type Department Care Team (Late st Contact Info) Description 07/16/2023 Orders Only [facility] [place] 521 Family Medicine [address] [place] [address] Jayme Parham MD 112 [facility] [address] [place], [place] [id number] Acute cough (Primary Dx); Chronic obstructive pulmonary [...] often do you attend chur ch or congregational services? Never 12/11/2022 Active Member of Clubs [...] Recorded Patient Health Questionnaire-2 Score 0 02/06/2023 [facility] [place] of Occupat ional Health - Occupational Stress [...] documented as of this encounter Care Teams Supervisor Road Administrator Relationship Specialty Start Date End Date Jayme Parham MD [address] [place] [address] PCP - General Family Medicine 5/15/23 Jayme Parham MD [address] [place] [address] PCP - ACO Reach 12/05/22 Mick Farmer DO [address] [place] [address] Referring Physician Ophthalmology 08/21/23 Renato Santacruz MD [address] [place] [address] Referring Physician Urology 08/21/23 Chuy Wood MD [address] [facility] Professional building 1 [place] [address] Referring Physician Rheumatology 08/21/23 Rebeca Emerson, DINA [address] [place] [address] Medical Office Professional Instructor Family Medicine 03/04/25 03/11/25 documented as of this encounter
--- OUTSIDE RECORDS SUMMARY | 2025-04-05 10:48 | XMS_ITS | Encounter Summary ---
Author Organization [facility] Address [address] [place] [address] Care Team Providers Care Canteen Attendant Name Role Phone Jayme Parham MD Primary Care Provider [phone] Jayme Parham MD Unavailable [phone] Mick Farmer DO Unavailable [phone] Renato Santacruz MD Unavailable [phone] Chuy Wood MD Unavailable [phone] Rebeca Emerson Unavailable [phone] Encounter Details Date Type Department Care Team (Late st Contact Info) Description 07/28/2023 Orders Only [facility] [place] 521 Family Medicine [address] [place] [address] Kimberly, [place], [place] Social History Tobacco Use Types Packs/Day Years [...] often do you attend chur ch or buddhism services? Never 12/11/2022 Active Member of Clubs [...] Patient Health Questionnaire-2 Score 0 02/06/2023 [facility] of Occupat ional Health - Occupational [...] documented as of this encounter Care Teams Canteen Attendant Relationship Specialty Start Date End Date Jayme Parham MD [address] [place] [address] PCP - General Family Medicine 11/25/22 Jayme Parham MD [address] [place] [address] PCP - ACO Reach 12/05/22 Mick Farmer DO [address] [place] [address] Referring Physician Ophthalmology 08/21/23 Renato Santacruz MD [address] [place] [address] Referring Physician Urology 08/21/23 Chuy Wood MD [address] [facility] Professional building 1 [place] [address] Referring Physician Rheumatology 08/21/23 Rebeca Emerson, DINA [address] [place] [address] Shower Screen Installer Family Medicine 03/04/25 03/11/25 documented as of this encounter
--- OUTSIDE RECORDS SUMMARY | 2025-04-05 10:48 | XMS_ITS | Encounter Summary ---
Author Organization [facility] Address [address] [place] [address] Care Team Providers Care Plastic Surgery Manager Name Role Phone Jayme Parham MD Primary Care Provider Jayme Parham MD Unavailable [phone] Mick Farmer DO Unavailable [phone] Renato Santacruz MD Unavailable [phone] Chuy Wood MD Unavailable Rebeca Emerson AUDIO/VIDEO ENGINEER Unavailable [phone] Encounter Details Date Type Department Care Team (Late st Contact Info) Description 09/18/2023 Orders Only [facility] [place] 521 Family Medicine [address] [place] [address] Jayme Parham MD 112 [facility] [address] [place] [address] Social History Tobacco Use Types [...] 12/11/2022 How often do you attend chur Chirply or latter day services? Never 12/11/2022 Active [...] Recorded Patient Health Questionnaire-2 Score 0 02/06/2023 [facility] - Occupational Stress Questionnaire Answer Date [...] documented as of this encounter Care Teams Plastic Surgery Manager Relationship Specialty Start Date End Date Jayme Parham MD 112 [facility] 100 [place] [address] PCP - General Family Medicine 11/25/22 Jayme Parham MD 112 [facility] [address] [place] [address] PCP - ACO Reach 12/05/22 Mick Farmer DO [address] [facility] [address] [place] [address] Referring Physician Ophthalmology 08/21/23 Renato Santacruz MD [address] [place] [address] Referring Physician Urology 08/21/23 Chuy Wood MD [address] [facility] Professional building 1 [place] [address] Referring Physician Rheumatology 08/21/23 Rebeca Emerson, DINA [address] [place] [address] Client Development Consultant Family Medicine 03/04/25 03/11/25 documented as of this encounter
--- OUTSIDE RECORDS SUMMARY | 2025-04-05 10:48 | XMS_ITS | Encounter Summary ---
Author Organization [facility] Address [address] [place] [address] Care Team Providers Care Silk Spotter Name Role Phone Jayme Parham MD Primary Care Provider Jayme Parham MD Unavailable [phone] Mick Farmer DO Unavailable [phone] Renato Santacruz MD Unavailable [phone] Chuy Wood MD Unavailable [phone] Rebeca Emersno Unavailable [phone] Encounter Details Date Type Department Care Team (Late st Contact Info) Description 02/11/2023 Orders Only [facility] [place] 521 Family Medicine [address] [place] [address] Jayme Parham MD 112 [facility] [address] [place], [place] [address] Social History Tobacco Use Types Packs/Day Years [...] on file documented as of this encounter Procedures Procedure Name Priority Date/Time Associated Diagnosis Comments XR IVP Routine 02/11/2023 2:09 PM EDT documented in this encounter Results * XR IVP (02/11/2023 2:09 PM EDT) Anatomical Region Laterality Modality Radiographic Yin ging us Edward J Hemeyer MD IMG XR PROCEDURES Final Resu lt documented in this encounter Visit Diagnoses Not on filedocumented in this encounter Care Teams Silk Spotter Relationship Specialty Start Date End Date Jayme Parham MD [address] [place] [address] PCP - General Family Medicine 11/25/22 Jayme Parham MD [address] [place] [address] PCP - ACO Reach 12/05/22 Mick Farmer DO [address] [place] [address] Referring Physician Ophthalmology 08/21/23 Renato Santacruz MD [address] [place] [address] Referring Physician Urology 08/21/23 Chuy Wood MD [address] [facility] Professional building [address] [place] [phone] Referring Physician Rheumatology 08/21/23 Rebeca Emerson, PRINT PRODUCTION MANAGER [address] [place], [place] [phone] Machining Supervisor Family Medicine 03/04/25 03/11/25 documented as of this encounter
--- OUTSIDE RECORDS SUMMARY | 2025-04-05 10:48 | XMS_ITS | Encounter Summary ---
Author Organization [facility] Address [address] [place] [place] [address] Care Team Providers Care Elevator Serviceman Name Role Phone Jayme Parham MD Primary Care Provider [phone] Jayme Parham MD Unavailable [phone] Mick Farmer DO Unavailable [phone] Renato Santacruz MD Unavailable [phone] Chuy Wood MD Unavailable Rebeca Emerson Unavailable [phone] Encounter Details Date Type Department Care Team (Late st Contact Info) Description 01/21/2024 Orders Only [facility] [place] 100 Family Medicine [address] [address] Chuy Wood MD [address] [facility] Professional building 1 [place] [phone] Social History Tobacco Use Types Packs/Day Years [...] often do you attend chur ch or yarsanism services? Never 12/11/2022 Active Member of Clubs [...] Recorded Patient Health Questionnaire-2 Score 0 02/06/2023 [facility]at ionnj Health - Occupational Stress Questionnaire Answer Date [...] documented as of this encounter Care Teams Elevator Serviceman Relationship Specialty Start Date End Date Jayme Parham MD [address] [place] [address] PCP - General Family Medicine 11/25/22 Jayme Parham MD [address] [place] [address] PCP - ACO Reach 12/05/22 Mick Farmer DO [address] [place] [address] Referring Physician Ophthalmology 08/21/23 Renato Santacruz MD [address] [place], [place] [address] Referring Physician Urology 08/21/23 Chuy Wood MD [address] [facility] Professional building 1 [place] [address] Referring Physician Rheumatology 08/21/23 Rebeca Emerson, FOOD PROCESSOR [address] [place], [place] [phone] Envelope Addresser Family Medicine 03/04/25 03/11/25 documented as of this encounter
--- OUTSIDE RECORDS SUMMARY | 2025-04-05 10:48 | XMS_ITS | Encounter Summary ---
Author Organization [facility] Address [address] [place] [address] Care Team Providers Care Woodenware Assembler Name Role Phone Jayme Perez MD Primary Care Provider [phone] Jayme Perez MD Unavailable [phone] Mick Farmer DO Unavailable [phone] Renato Santacruz MD Unavailable [phone] Chuy Wood MD Unavailable [phone] Rebeca Emerson Unavailable [phone] Encounter Details Date Type Department Care Team (Late st Contact Info) Description 04/23/2024 Clinisync Result Encounter [facility] External Department Unsolicited Jayme Perez MD 112 [facility] [address] [place] [address] Social History Tobacco Use Types Packs/Day Years [...] any clubs o r organizations such as yarsanism groups, unions, fraternal or athletic groups, or [...] Recorded Patient Health Questionnaire-2 Score 0 02/06/2023 [facility] Occupat ional Health - Occupational [...] AM EDT Narrative 04/23/2024 4:48 AM EDT [place] [id number] CT Scan Report Signed Patient: WILDA SEN MR#: [id number] : 1945 Acct:[id number] Age/Sex: 79 / F ADM Date: 04/22/24 Loc: LAB Attending Dr: JAYME PEREZ Ordering Physician: JAYME PEREZ Date of Service: 04/22/24 Procedure(s): CT abdomen pelvis w con Accession Number(s): [id number] cc: JAYME PEREZ [address] [address] Patient Name: WILDA SEN MRN: [id number] date: 1945 Sex: F Assigned Patient Location: LAB Current Patient Location: Accession/Order Number: [id number] Exam Date: 04/22/2024 12:40 Report Date: 04/23/2024 [...] M.D. Signed By: 04/23/24447 DD/ 4 TD/TT: High School Academic Coach: Procedure Note Radiology, Radiologist, MD - 04/23/2024 [place] [address] CT Scan Report Signed Patient: WILDA SEN R#: [id number] : 1945cct:[id number] Age/Sex: 79 / FADM Date: 04/22/24 Loc: LAB Attending Dr: JAYME PEREZ Ordering Physician: JAYME PEREZ Date of Service: 04/22/24 Procedure(s): CT abdomen pelvis w con Accession Number(s): [id number] cc: JAYME PEREZ The [place] [address] Patient Name: WILDA SEN MRN: [id number] date: 1945 Sex: F Assigned Patient Location: LAB Current Patient Location: Accession/Order Number: [id number] Exam Date: 04/22/2024 12:40 Report Date: 04/23/2024 [...] Garay M.D. Signed By:04/23/24447 DD/ 4 TD/TT: High School Academic Coach: us Jayme Perez MD [facility] Final Resu lt documented in this encounter Visit Diagnoses Not on filedocumented in this encounter Additional Health Concerns Assessment Noted Time PHQ-9 Depression Total Score: 7 05/22/20 23 2:00 PM EST documented as of this encounter Care Teams Woodenware Assembler Relationship Specialty Start Date End Date Jayme Perez MD [address] [place] [address] PCP - General Family Medicine 11/25/22 Jayme Perez MD [address] [place] [address] PCP - ACO Reach 12/05/22 Mick Farmer DO [address] [place] [address] Referring Physician Ophthalmology 08/21/23 Renato Santacruz MD [address] [place], [place] [address] Referring Physician Urology 08/21/23 Chuy Wood MD [address] [facility] Professional building 1 [place] [address] Referring Physician Rheumatology 08/21/23 Rebeca Emerson, JACQUARD LOOM CARD CHANGER [address] [place] [address] Filbert Grower Family Medicine 03/04/25 03/11/25 documented as of this encounter
--- OUTSIDE RECORDS SUMMARY | 2025-04-05 10:48 | XMS_ITS | Encounter Summary ---
Author Organization [facility] Address [address] [place] [address] Care Team Providers Care Director Smb Sales Name Role Phone Jayme Parham MD Primary Care Provider Jayme Parham MD Unavailable [phone] Mick Farmer DO Unavailable [phone] Renato Santacruz MD Unavailable [phone] Chuy Wood MD Unavailable [phone] Rebeca Emerson Unavailable [phone] Encounter Details Date Type Department Care Team (Late st Contact Info) Description 05/05/2024 Orders Only [facility] 521 Family Medicine [address] [place] [address] Magalis Harris, SAPPHIRE Unexplained weight loss; Type 2 diabetes mellitus with stage 3a chronic kidney disease, without long-term current use of insulin (HCC); History of melanoma; Former smoker; Iron deficiency; Psoriatic arthropathy (HCC); Immunosuppressed status (HCC); Diverticulosis of large intestine without hemorrhage; History of pneumonectomy; residential current use of anticoagulant; 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 [...] attend chur ch or judaism services? 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) Psoriatic arthropathy Immunosuppressed status (HCC) Diverticulosis of large intestine without hemorrhage History of pneumonectomy 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, lung long term care social worker current use of anticoagulant 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 (HCC) Atrial fibrillation Medication monitoring encounter Encounter for therapeutic drug monitoring documented in this encounter Additional Health Concerns Assessment Noted Time PHQ-9 Depression Total Score: 7 05/22/20 23 2:00 PM EST documented as of this encounter Care Teams Director Smb Sales Relationship Specialty Start Date End Date Jayme Parham MD [address] [address] PCP - General Family Medicine 11/25/22 Jayme Parham MD 112 [facility] 100 [place] [address] PCP - ACO Reach 12/05/22 Mick Farmer DO [address] [place] [address] Referring Physician Ophthalmology 08/21/23 Renato Santcaruz MD [address] [place] [address] Referring Physician Urology 08/21/23 Chuy Wood MD [address] [facility] Professional building 1 [place] [address] Referring Physician Rheumatology 08/21/23 Rebeca Emerson, DINA [address] [place] [address] Casing Finisher And Stuffer Family Medicine 03/04/25 03/11/25 documented as of this encounter
--- OUTSIDE RECORDS SUMMARY | 2025-04-05 10:48 | XMS_ITS | Encounter Summary ---
Author Organization [facility] Address [address] [place] [address] Care Team Providers Care Immersion Metal Cleaner Name Role Phone Jayme Parham MD Primary Care Provider [phone] Jayme Parham MD Unavailable [phone] Mick Farmer DO Unavailable [phone] Renato Santacruz MD Unavailable [phone] Chuy Wood MD Unavailable [phone] Rebeca Emerson TORCH SOLDERER Unavailable [phone] Encounter Details Date Type Department Care Team (Late st Contact Info) Description 01/25/2025 Results Follow-Up [place] [address] Family Medicine 112 [facility] 100 [place] [address] Jayme Parham MD 112 [facility] 100 [place] [address] MR brain w and wo contrast IACs Social History Tobacco Use Types Packs/Day Years [...] week 04/08/2024 How often do you attend [facility] or tenriism services? Never 04/08/2024 Do you belong to [...] Recorded Patient Health Questionnaire-2 Score 0 11/04/2024 [facility] - Occupational Stress Questionnaire [...] any time in the past 12 m [facility], were you homeless or living in [...] documented as of this encounter Care Teams Immersion Metal Cleaner Relationship Specialty Start Date End Date Jayme Parham MD 112 [facility] 100 [place] [address] PCP - General Family Medicine 11/25/22 Jayme Parham MD 112 [facility] 100 [place] [address] PCP - ACO Reach 12/05/22 Mick Farmer DO [address] [place], [place] [address] [address] [place] [address] Referring Physician Ophthalmology 08/21/23 Renato Santacruz MD [address] [place] [address] Referring Physician Urology 08/21/23 Chuy Wood MD [address] [facility] Professional building 1 [place] [address] Referring Physician Rheumatology 08/21/23 Rebeca Emerson, TORCH SOLDERER [address] [place] [address] Dice Manager Family Medicine 03/04/25 03/11/25 documented as of this encounter
--- OUTSIDE RECORDS SUMMARY | 2025-04-05 10:48 | XMS_ITS | Encounter Summary ---
Author Organization [facility] Address [address] [place] [address] Care Team Providers Care Steffen House Supervisor Name Role Phone Jayme Perez MD Primary Care Provider [phone] Jayme Perez MD Unavailable [phone] Mick Farmer DO Unavailable [phone] Renato Santacruz MD Unavailable [phone] Radames Wood MD Unavailable [phone] Rebeca Emerson Unavailable [phone] Encounter Details Date Type Department Care [...] Recorded Patient Health Questionnaire-2 Score 0 02/06/2023 [facility] Occupational Stress Questionnaire Answer Date [...] EDT Narrative 01/14/2024 3:53 PM EDT The [address] [address] XRay Report Signed Patient: WILDA SEN MR#: [id number] : 1945 Acct:[id number] Age/Sex: 78 / F ADM Date: 07/03/24 Loc: RAD Attending Dr: RADAMES WOOD Ordering Physician: RADAMES WOOD Date of Service: 01/14/24 Procedure(s): XR DEXA axial skeleton Accession Number(s): [id number] cc: JAYME PEREZ ; RADAMES WOOD [address] [address] Patient Name: WILDA SEN MRN: [id number] date: 1945 Sex: F Assigned Patient [facility]: [facility] Current Patient Location: RAD Accession/Order Number: [id number] Exam Date: 01/14/2024 12:48 Report Date: 01/14/2024 [...] prevention and treatment of osteoporosis. Osteoporos Int. 2021;33(10):8155-1430. doi: 10.1007/i60012-888-97285-t. Epub 2021Nov 08. Erratum in: Osteoporos Int. 2021Feb 07;: PMID: [id number]; PMCID: [id number]. Electronically authenticated by: VARGHESE GARAY Date: 01/14/2024 15:50 Dictated By: Varghese Garay M.D. Signed By: 01/14/24 1553 DD/ 1550 TD/TT: Kaiawhina: Procedure Note Radiology, Radiologist, - 01/14/2024 The [place] [id number] XRay Report Signed Patient: WILDA SEN R#: [id number] : 1945cct:[id number] Age/Sex: 78 / FADM Date: 01/14/24 Loc: RAD Attending Dr: RADAMES WOOD Ordering Physician: RADAMES WOOD Date of Service: 01/14/24 Procedure(s): XR DEXA axial skeleton Accession Number(s): [id number] cc: JAYME PEREZ MATTHEW The [address] [address] Patient Name: WILDA SEN MRN: [id number] date: 1945 Sex: F Assigned Patient Location: RAD Current Patient Location: RAD Accession/Order Number: [id number] Exam Date: 01/14/2024 12:48 Report Date: 01/14/2024 [...] 10-year hip fracture risk >= 3% or [id number] major osteoporosis-related fracture risk >= 20% (i.e., [...] to prevention and treatment of osteoporosis.Osteoporos Int. 2021;33(10):0171-8496. doi: 10.1007/m19166-241-36708-q. Epub . Erratum in: Osteoporos Int. 2021Feb 07;: PMID: [id number]; PMCID: [id number]. Electronically authenticated by: VARGHESE GARAY Date: 01/14/2024 15:50 Dictated By: Varghese Garay M.D. Signed By:01/14/24 1553 DD/ 1550 TD/TT: Kaiawhina: us Generic External Data Provider [facility] Final Result documented in this encounter Visit Diagnoses Not on filedocumented in this encounter Additional Health Concerns Assessment Noted Time PHQ-9 Depression Total Score: 7 05/22/20 23 2:00 PM EST documented as of this encounter Care Teams Steffen House Supervisor Relationship Specialty Start Date End Date Jayme Perez MD [address] [address] PCP - General Family Medicine 11/25/22 Jayme Perez MD [address] [address] PCP - ACO Reach 12/05/22 Mick Farmer DO [address] [place], [place] [address] e [address] [place] [address] Referring Physician Ophthalmology 08/21/23 Renato Santacruz MD [address] [place] [address] Referring Physician Urology 08/21/23 Radames Wood MD [address] [facility] Professional building 1 [place] [address] Referring Physician Rheumatology 08/21/23 Rebeca Emerson, DINA [address] [place] [address] Ell Teacher Family Medicine 03/04/25 03/11/25 documented as of this encounter
--- OUTSIDE RECORDS SUMMARY | 2025-04-05 10:48 | XMS_ITS | Encounter Summary ---
Author Organization [facility] Address [address] [place] [address] Care Team Providers Care Cnc Lathe Programmer Name Role Phone Jayme Parham MD Primary Care Provider [phone] Jayme Parham MD Unavailable [phone] Mick Farmer DO Unavailable [phone] Renato Santacruz MD Unavailable [phone] Chuy Wood MD Unavailable Rebeca Emerson MATERIAL DISTRIBUTOR Unavailable [phone] Encounter Details Date Type Department Care Team (Late st Contact Info) Description 01/23/2023 Abstract [facility] 521 Family Medicine [address] [place] [address] Jayme Parham MD [address] [place], [place] [address] Social History Tobacco Use Types Packs/Day Years [...] often do you attend chur ch or jainism services? Never 12/11/2022 Active Member of Clubs [...] Recorded Patient Health Questionnaire-2 Score 0 12/12/2022 [facility] - Occupational Stress Questionnaire [...] on filedocumented in this encounter Care Teams Cnc Lathe Programmer Relationship Specialty Start Date End Date Jayme Parham MD [address] [place] [address] PCP - General Family Medicine 11/25/22 Jayme Parham MD 112 [facility] [address] [place] [address] PCP - ACO Reach 12/05/22 Mick Farmer DO [address] [place] [address] Referring Physician Ophthalmology 08/21/23 Renato Santacruz MD [address] [place] [address] Referring Physician Urology 08/21/23 Chuy Wood MD [address] [facility] Professional building 1 [place] [address] Referring Physician Rheumatology 08/21/23 Rebeca Emerson, DINA [address] [place] [address] Cardiac Care Nurse Family Medicine 03/04/25 03/11/25 documented as of this encounter
--- OUTSIDE RECORDS SUMMARY | 2025-04-05 10:48 | XMS_ITS | Clinical Summary ---
Author Organization [facility] Address [address] [place] [address] Phone Care Team Providers Care Apparel Pattern Maker Name Role Phone Jayme Parham MD Primary Care Provider [phone] Social History Tobacco Use Types Packs/Day Years Used Date Smoking Tobacco: Never Assessed Comments Unknown Sex and Gender Information Value Date Recorded Sex Assigned at Not on file Legal Sex Female 1:42 PM EST Gender Identity Not on file Sexual Orientation Not on file Plan of Treatment Not on file Care Teams Apparel Pattern Maker Relationship Specialty Start Date End Date Jayme Parham MD [address] [place] [address] PCP - General 11/21/14
--- OUTSIDE RECORDS SUMMARY | 2025-04-05 10:48 | XMS_ITS | Encounter Summary ---
Author Organization [facility] Address [address] [place] [address] Care Team Providers Care Apprentice Carpenter Name Role Phone Jayme Perez MD Primary Care Provider [phone] Jayme Perez MD Unavailable [phone] Mick Farmer DO Unavailable [phone] Renato Santacruz MD Unavailable [phone] Chuy Wood MD Unavailable [phone] Rebeca Emerson Unavailable [phone] Encounter Details Date Type Department Care [...] How often do you attend chur or jehovah's witness services? Never 04/08/2024 Do you belong to any clubs o r organizations such as oriental orthodox groups, unions, fraternal or athletic groups, or [...] 0 02/06/2023 [facility] of Occupat ionco Health - Occupational Stress Questionnaire Answer Date [...] any time in the past 12 m [facility], were you homeless or living [...] PM EST Narrative 07/05/2024 11:22 [place] [address] XRay Report Signed Patient: WILDA SEN MR#: [id number] : 1945 Acct:[id number] Age/Sex: 79 / F ADM Date: 07/05/24 Loc: RAD Attending Dr: Williams Jackson M.D. Ordering Physician: Williams Jackson M.D. Date of Service: 07/05/24 Procedure(s): XR abdomen 1V Accession Number(s): [id number] cc: Williams Jackson M.D.; JAYME PEREZ [place] [address] Patient Name: WILDA SEN MRN: [id number] date: 1945 Sex: F Assigned Patient Location: [facility] Current Patient Location: [facility] Accession/Order Number: [id number] Exam Date: 07/05/2024 09:18 Report Date: 07/05/2024 [...] M.D. Signed By: 07/05/242321 DD/ 18 TD/TT: Production Stage Manager: Procedure Note Radiology, Radiologist, - 07/05/2024 [place] [address] XRay Report Signed Patient: WILDA SEN JMR#: [id number] : 1945cct:[id number] Age/Sex: 79 / FADM Date: 07/05/24 Loc: RAD Attending Dr: Williams Jackson M.D. Ordering Physician: Williams Jackson M.D. Date of Service: 07/05/24 Procedure(s): XR abdomen 1V Accession Number(s): [id number] cc: Williams Jackson M.D.; JAYME PEREZ [place] [address] Patient Name: WILDA SEN MRN: [id number] date: 1945 Sex: F Assigned Patient Location: [facility] Current Patient Location: [facility] Accession/Order Number: [id number] Exam Date: 07/05/2024 09:18 Report Date: 07/05/2024 [...] Garay M.D. Signed By:07/05/242321 DD/ 18 TD/TT: Production Stage Manager: us Generic External Data Provider [facility] Final Result documented in this encounter Visit Diagnoses Not on filedocumented in this encounter Additional Health Concerns Assessment Noted Time PHQ-9 Depression Total Score: 7 05/22/20 23 2:00 PM EST documented as of this encounter Care Teams Apprentice Carpenter Relationship Specialty Start Date End Date Jayme Perez MD [address] [place] [address] (Fax) PCP - General Family Medicine 11/25/22 Jayme Perez MD [address] [place] [address] PCP - ACO Reach 12/05/22 Mick Farmer DO [address] [place] [address] Referring Physician Ophthalmology 08/21/23 Renato Santacruz MD [address] [place] [address] Referring Physician Urology 08/21/23 Chuy Wood MD [address] [facility] Professional building 1 [place] [address] Referring Physician Rheumatology 08/21/23 Rebeca Emerson, QUALITY AND RELIABILITY ENGINEER [address] [place] [address] Adobe Layer Family Medicine 03/04/25 03/11/25 documented as of this encounter
--- OUTSIDE RECORDS SUMMARY | 2025-04-05 10:48 | XMS_ITS | Encounter Summary ---
Author Organization [facility] Address [address] [place] [address] Care Team Providers Care Enterprise Services Manager Name Role Phone Jayme Parham MD Primary Care Provider Jayme Parham MD Unavailable [phone] Mick Farmer DO Unavailable [phone] Renato Santacruz MD Unavailable [phone] Chuy Wood MD Unavailable [phone] Rebeca Emerson Unavailable [phone] Encounter Details Date Type Department Care Team (Late st Contact Info) Description 07/16/2023 Orders Only [facility] 521 Family Medicine [address] [place] [address] Alban Montilla MD [address] [place], [place] [address] Social History Tobacco Use Types Packs/Day Years [...] Patient Health Questionnaire-2 Score 0 02/06/2023 [facility] of Occupat ional Health - Occupational [...] documented as of this encounter Care Teams Enterprise Services Manager Relationship Specialty Start Date End Date Jayme Parham MD [address] [place] [address] PCP - General Family Medicine 11/25/22 Jayme Parham MD [address] [place] [address] PCP - ACO Reach 12/05/22 Mick Farmer DO [address] [place] [address] Referring Physician Ophthalmology 08/21/23 Renato Santacruz MD [address] [place] [address] Referring Physician Urology 08/21/23 Chuy Wood MD [address] [facility] Professional building 1 [place] [address] Referring Physician Rheumatology 08/21/23 Rebeca Emerson, DINA [address] [place] [address] Laborer Laboratory Family Medicine 03/04/25 03/11/25 documented as of this encounter
--- OUTSIDE RECORDS SUMMARY | 2025-04-05 10:48 | XMS_ITS | Encounter Summary ---
Author Organization [facility] Address [address] [place] [address] Care Team Providers Care Mold Injector Name Role Phone Jayme Parham MD Primary Care Provider Jayme Parham MD Unavailable [phone] Mick Farmer DO Unavailable [phone] Renato Santacruz MD Unavailable [phone] Chuy Wood MD Unavailable [phone] Rebeca Emerson Unavailable [phone] Encounter Details Date Type Department Care Team (Late st Contact Info) Description 07/28/2023 Abstract [facility] [place] 521 Family Medicine [address] [place] [address] Lou Glover, REAR ADMIRAL [address] [facility] [place] [address] Social History Tobacco Use Types Packs/Day Years [...] Recorded Patient Health Questionnaire-2 Score 0 02/06/2023 [facility] Occupat ional Health - [...] documented as of this encounter Care Teams Mold Injector Relationship Specialty Start Date End Date Jayme Parham MD [address] [address] PCP - General Family Medicine 11/25/22 Jayme Parham MD [address] [address] [place] [address] PCP - ACO Reach 12/05/22 Mick Farmer DO 278 [facility] [address] [place] [address] Referring Physician Ophthalmology 08/21/23 Renato Santacruz MD [address] [place] [address] Referring Physician Urology 08/21/23 Chuy Wood MD [address] [facility] Professional building 1 [place] [address] Referring Physician Rheumatology 08/21/23 Rebeca Emerson, DIRECTOR OF MATH [address] [place] [address] Material Controller Family Medicine 03/04/25 03/11/25 documented as of this encounter
--- OUTSIDE RECORDS SUMMARY | 2025-04-05 10:48 | XMS_ITS | Encounter Summary ---
Author Organization [facility] Address [address] [place] [address] Care Team Providers Care Jewel Hole Finish Opener Name Role Phone Jayme Parham MD Primary Care Provider [phone] Jayme Parham MD Unavailable [phone] Mick Farmer DO Unavailable [phone] Renato Santacruz MD Unavailable +[phone] Chuy Wood MD Unavailable [phone] Rebeca Emerson MANUFACTURING MAINTENANCE MANAGER Unavailable [phone] Encounter Details Date Type Department Care Team (Late st Contact Info) Description 03/05/2023 Orders Only [facility] [place] 521 Family Medicine [address] [place] [address] Jayme Parham MD 112 [facility] [address] [place], [place] [address] Social History Tobacco Use Types Packs/Day Years [...] Recorded Patient Health Questionnaire-2 Score 0 02/06/2023 [facility] of Occupat [...] on filedocumented in this encounter Care Teams Jewel Hole Finish Opener Relationship Specialty Start Date End Date Jayme Parhma MD [address] [place] [address] PCP - General Family Medicine 11/25/22 Jayme Parham MD [address] [place] [address] PCP - ACO Reach 12/05/22 Mick Farmer DO [address] [place] [address] Referring Physician Ophthalmology 08/21/23 Renato Santacruz MD [address] [place] [address] Referring Physician Urology 08/21/23 Chuy Wood MD [address] [facility] Professional building 1 [place] [address] Referring Physician Rheumatology 08/21/23 Rebeca Emerson, DINA [address] [place] [address] Ball Fringe Machine Operator Family Medicine 03/04/25 03/11/25 documented as of this encounter
--- OUTSIDE RECORDS SUMMARY | 2025-04-05 10:48 | XMS_ITS | Encounter Summary ---
Author Organization [facility] Address [address] [place] [address] Care Team Providers Care Portable Track Crew Chief Name Role Phone Jayme Perez MD Primary Care Provider [phone] Jayme Perez MD Unavailable [phone] Mick Farmer DO Unavailable [phone] Renato Santacruz MD Unavailable [phone] Chuy Wood MD Unavailable [phone] Rebeca Emerson Unavailable [phone] Encounter Details Date Type Department Care [...] Questionnaire-2 Score 0 02/06/2023 [facility] Questionnaire Answer [...] EDT Narrative 10/09/2023 6:25 AM EDT The [address] [address] XRay Report Signed Patient: WILDA SEN MR#: [id number] : 1945 Acct:[id number] Age/Sex: 78 / F ADM Date: 10/08/23 Loc: RAD Attending Dr: Williams Jackson M.D. Ordering Physician: Williams Jackson M.D. Date of Service: 10/08/23 Procedure(s): XR abdomen 1V Accession Number(s): [id number] cc: Williams Jackson M.D.; JAYME PEREZ The [place] [id number] Patient Name: WILDA SEN MRN: [id number] date: 1945 Sex: F Assigned Patient Location: RAD Current Patient Location: Accession/Order Number: [id number] Exam Date: 10/08/2023 10:37 Report Date: 10/09/2023 [...] M.D. Signed By: 10/09/23624 DD/ 1 TD/TT: It Program Engagement Director: Procedure Note Radiology, Radiologist, MD - 10/09/2023 [place] [address] XRay Report Signed Patient: WILDA SEN JMR#: [id number] : 1945cct:[id number] Age/Sex: 78 / FADM Date: 10/08/23 Loc: RAD Attending Dr: Williams Jackson M.D. Ordering Physician: Cook,Williams M.D. Date of Service: 10/08/23 Procedure(s): XR abdomen 1V Accession Number(s): [id number] cc: Williams Jackson M.D.; JAYME PEREZ [address] [address] Patient Name: WILDA SEN MRN: [id number] date: 1945 Sex: F Assigned Patient [facility]: [facility] Current Patient Location: Accession/Order Number: [id number] Exam Date: 10/08/2023 10:37 Report Date: 10/09/2023 [...] Garay M.D. Signed By:10/09/23624 DD/ 1 TD/TT: It Program Engagement Director: us Generic External Data Provider [facility] Final Result documented in this encounter Visit Diagnoses Not on filedocumented in this encounter Additional Health Concerns Assessment Noted Time PHQ-9 Depression Total Score: 7 05/22/20 23 2:00 PM EST documented as of this encounter Care Teams Portable Track Crew Chief Relationship Specialty Start Date End Date Jayme Perez MD [address] [place] [address] PCP - General Family Medicine 11/25/22 Jayme Perez MD 112 [facility] [address] [place] [address] PCP - ACO Reach 12/05/22 Mick Farmer DO [address] [facility] [address] [place] [address] Referring Physician Ophthalmology 08/21/23 Renato Santacruz MD [address] [place] [address] Referring Physician Urology 08/21/23 Chuy Wood MD [address] [facility] Professional building 1 [place] [address] Referring Physician Rheumatology 08/21/23 Rebeca Emerson, DINA [address] [place] [address] Club Car Attendant Family Medicine 03/04/25 03/11/25 documented as of this encounter
--- OUTSIDE RECORDS SUMMARY | 2025-04-05 10:48 | XMS_ITS | Encounter Summary ---
Author Organization [facility] Address [address] [place] [address] Care Team Providers Care Owner Professional Engineer Name Role Phone Jayme Parham MD Primary Care Provider [phone] Jayme Parham MD Unavailable [phone] Mick Farmer DO Unavailable [phone] Renato Santacruz MD Unavailable [phone] Chuy Wood MD Unavailable [phone] Rebeca Emerson LOKIE DRIVER Unavailable [phone] Encounter Details Date Type Department Care Team (Late st Contact Info) Description 11/17/2023 Orders Only [facility] [place] 521 Family Medicine [address] [place] [address] Jayme Parham MD 112 [facility] [address] [place] [address] Social History Tobacco Use Types [...] 12/11/2022 How often do you attend chur [employer] or uatsdin services? Never 12/11/2022 Active Member [...] Score 0 02/06/2023 [facility] - [facility] Stress Questionnaire Answer Date [...] documented as of this encounter Care Teams Owner Professional Engineer Relationship Specialty Start Date End Date Jayme Parham MD 112 [address] 100 [place] [address] PCP - General Family Medicine 11/25/22 Jayme Parham MD 112 [facility] [address] [place] [address] PCP - ACO Reach 12/05/22 Mick Farmer DO 278 [facility] [address] [place] [address] Referring Physician Ophthalmology 08/21/23 Renato Santacruz MD [address] [place] [address] Referring Physician Urology 08/21/23 Chuy Wood MD [address] [facility] Professional building 1 [place] [address] Referring Physician Rheumatology 08/21/23 Rebeca Emerson, DINA [address] [place] [address] Bobbin Winder Family Medicine 03/04/25 03/11/25 documented as of this encounter
--- OUTSIDE RECORDS SUMMARY | 2025-04-05 10:48 | XMS_ITS | Encounter Summary ---
Author Organization [facility] Address [address] [place] [address] Care Team Providers Care Automotive Internet Sales Consultant Name Role Phone Jayme Parham MD Primary Care Provider Jayme Parham MD Unavailable [phone] Mick Farmer DO Unavailable [phone] Renato Santacruz MD Unavailable [phone] Chuy Wood MD Unavailable Rebeca Emerson Unavailable [phone] Encounter Details Date Type Department Care Team (Late st Contact Info) Description 04/19/2024 Orders Only [facility] [place] 100 Family Medicine 112 [facility] 100 [place] [address] Jayme Parham MD 112 [facility] 100 [place] [address] Social History Tobacco Use Types Packs/Day Years [...] often do you attend chur ch or congregation services? Never 04/08/2024 Do you belong to [...] Recorded Patient Health Questionnaire-2 Score 0 02/06/2023 [facility] of Occupat ional Health - Occupational Stress [...] any time in the past 12 m [facility], were you homeless or living in [...] documented as of this encounter Care Teams Automotive Internet Sales Consultant Relationship Specialty Start Date End Date Jayme Parham MD [address] [place] [address] PCP - General Family Medicine 11/25/22 Jayme Parham MD [address] [facility] [address] [place] [address] PCP - ACO Reach 12/05/22 Mick Farmer DO [address] [place] [address] Referring Physician Ophthalmology 08/21/23 Renato Santacruz MD [address] [place] [address] Referring Physician Urology 08/21/23 Chuy Wood MD [address] [facility] Professional building 1 [place] [address] Referring Physician Rheumatology 08/21/23 Rebeca Emerson, DINA [address] [place] [address] Civil Engineering Drafter Family Medicine 03/04/25 03/11/25 documented as of this encounter
--- OUTSIDE RECORDS SUMMARY | 2025-04-05 10:48 | XMS_ITS | Encounter Summary ---
Author Organization [facility] Address [address] [place] [address] Care Team Providers Care Package Worker Name Role Phone Jayme Perez MD Primary Care Provider [phone] Jayme Perez MD Unavailable [phone] Mick Farmer DO Unavailable [phone] Renato Santacruz MD Unavailable [phone] Chuy Wood MD Unavailable [phone] Rebeca Emerson Unavailable [phone] Encounter Details Date Type Department Care Team (Late st Contact Info) Description 05/15/2024 Clinisync Result Encounter [facility] External Department Unsolicited Jayme Perez MD 112 [facility] [address] [place] [address] Social History Tobacco Use Types Packs/Day Years [...] How often do you attend chur or mormonism services? Never 04/08/2024 Do you belong to [...] Patient Health Questionnaire-2 Score 0 02/06/2023 [facility] of Occupat ional Health - [...] any time in the past 12 m [facility], were you homeless or living [...] AM EDT Narrative 05/15/2024 7:26 AM EDT [address] [address] [address] Scan Report Signed Patient: WILDA SEN MR#: [id number] : 1945 Acct:[id number] Age/Sex: 79 / F ADM Date: 05/14/24 Loc: CT Attending Dr: JAYME PEREZ Ordering Physician: JAYME PEREZ Date of Service: 05/14/24 Procedure(s): CT chest w con Accession Number(s): [id number] cc: JAYME PEREZ [place] [id number] Patient Name: WILDA SEN MRN: [id number] date: 1945 Sex: F Assigned Patient Location: CT Current Patient Location: Accession/Order Number: [id number] Exam Date: 05/14/2024 09:00 Report Date: 05/15/2024 [...] Signed By: 05/15/24725 DD/ 2 TD/TT: Welding Rod Coater: Procedure Note Radiology, Radiologist, MD - 05/15/2024 [place] [address] CT Scan Report Signed Patient: WILDA SEN JMR#: [id number] : 1945cct:[id number] Age/Sex: 79 / FADM Date: 05/14/24 Loc: CT Attending Dr: JAYME PEREZ Ordering Physician: JAYME PEREZ Date of Service: 05/14/24 Procedure(s): CT chest w con Accession Number(s): [id number] cc: JAYME PEREZ [place] [address] Patient Name: WILDA SEN MRN: [id number] date: 1945 Sex: F Assigned Patient Location: CT Current Patient Location: Accession/Order Number: [id number] Exam Date: 05/14/2024 09:00 Report Date: 05/15/2024 [...] M.D. Signed By:05/15/24725 DD/ 2 TD/TT: Welding Rod Coater: Jayme Perez MD [facility] Final Resu lt documented in this encounter Visit Diagnoses Not on filedocumented in this encounter Additional Health Concerns Assessment Noted Time PHQ-9 Depression Total Score: 7 05/22/20 23 2:00 PM EST documented as of this encounter Care Teams Package Worker Relationship Specialty Start Date End Date Jayme Perez MD [address] [address] PCP - General Family Medicine 11/25/22 Jayme Perez MD [address] [address] PCP - ACO Reach 12/05/22 Mick Farmer DO [address] [place] [address] 300 [place] [address] Referring Physician Ophthalmology 08/21/23 Renato Santacruz MD [address] [place] [address] Referring Physician Urology 08/21/23 Chuy Wood MD [address] [facility] Professional building 1 [place] [address] Referring Physician Rheumatology 08/21/23 Rebeca Emerson, DINA [address] [place] [address] Park Warden Family Medicine 03/04/25 03/11/25 documented as of this encounter
--- OUTSIDE RECORDS SUMMARY | 2025-04-05 10:48 | XMS_ITS | Encounter Summary ---
Author Organization [facility] Address [address] [place] [address] Care Team Providers Care Metal Caster Name Role Phone Jayme Parham MD Primary Care Provider Jayme Parham MD Unavailable [phone] Mick Farmer DO Unavailable [phone] Renato Santacruz MD Unavailable [phone] Chuy Wood MD Unavailable Rebeca Emerson FOOD AND DRUG INSPECTOR Unavailable [phone] Encounter Details Date Type Department Care Team (Late st Contact Info) Description 03/19/2023 Abstract [facility] [place] 521 Family Medicine [address] [place] [address] Jayme Parham MD 112 [facility] [address] [place], [place] [address] Social History Tobacco Use Types Packs/Day Years [...] often do you attend chur ch or temple services? Never 12/11/2022 Active Member of Clubs [...] in a retirement (including now)? No 12/11/2022 Education Answer Date [...] on filedocumented in this encounter Care Teams Metal Caster Relationship Specialty Start Date End Date Jayme Parham MD [address] [address] PCP - General Family Medicine 11/25/22 Jayme Parham MD [address] [address] PCP - ACO Reach 12/05/22 Mick Farmer DO [address] [place] [address] Referring Physician Ophthalmology 08/21/23 Renato Santacruz MD [address] [place] [address] Referring Physician Urology 08/21/23 Chuy Wood MD 2500 [address] [facility] Professional building 1 [place] [address] Referring Physician Rheumatology 08/21/23 Rebeca Emerson, DINA [address] [place], [place] [address] Binder Sorter Family Medicine 03/04/25 03/11/25 documented as of this encounter
--- OUTSIDE RECORDS SUMMARY | 2025-04-05 10:48 | XMS_ITS | Encounter Summary ---
Author Organization [facility] Address [address] [place] [address] Care Team Providers Care Creative Writing Teacher Name Role Phone Jayme Parham MD Primary Care Provider aJyme Parham MD Unavailable [phone] Mick Farmer DO Unavailable [phone] Renato Santacruz MD Unavailable [phone] Chuy Wood MD Unavailable Rebeca Emerson RECREATION ATTENDANT Unavailable [phone] Encounter Details Date Type Department Care Team (Late st Contact Info) Description 12/23/2022 Orders Only [facility] [place] 521 Family Medicine [address] [place] [address] Jayme Parham MD 112 [facility] [address] [place], [place] [address] Social History Tobacco Use Types Packs/Day Years [...] Recorded Patient Health Questionnaire-2 Score 0 12/12/2022 [facility] of Occupat ional Health - Occupational [...] health care facility (including now)? No 12/11/2022 Comments No Sex [...] on filedocumented in this encounter Care Teams Creative Writing Teacher Relationship Specialty Start Date End Date Jayme Parham MD [address] [place] [address] PCP - General Family Medicine 11/25/22 Jayme Parham MD [address] [place] [address] PCP - ACO Reach 12/05/22 Mick Farmer DO [address] [place] [address] Referring Physician Ophthalmology 08/21/23 Renato Santacruz MD [address] [place], [place] [address] Referring Physician Urology 08/21/23 Chuy Wood MD [address] [facility] Professional building 1 [place] [address] Referring Physician Rheumatology 08/21/23 Rebeca Emerson, RECREATION ATTENDANT [address] [place], [place] [address] Assembly Supervisor Family Medicine 03/04/25 03/11/25 documented as of this encounter
--- OUTSIDE RECORDS SUMMARY | 2025-04-05 10:48 | XMS_ITS | Encounter Summary ---
Author Organization [facility] Address [address] [place] [address] Care Team Providers Care Regulatory Coordinator Name Role Phone Jayme Parham MD Primary Care Provider Jayme Parham MD Unavailable [phone] Mick Farmer DO Unavailable [phone] Rentao Santacruz MD Unavailable [phone] Chuy Wood MD Unavailable Rebeca Emerson RACE CAR MECHANIC Unavailable [phone] Encounter Details Date Type Department Care Team (Late st Contact Info) Description 01/27/2023 Orders Only [facility] [place] 521 Family Medicine [address] [place] [address] Jayme Parham MD 112 [facility] [address] [place], [place] [address] Social History Tobacco Use Types Packs/Day Years [...] often do you attend chur ch or religion services? Never 12/11/2022 Active Member of Clubs [...] Recorded Patient Health Questionnaire-2 Score 0 12/12/2022 [facility] of Occupat ional Health - [...] in a intermediate (including now)? No 12/11/2022 Education Answer Date [...] on filedocumented in this encounter Care Teams Regulatory Coordinator Relationship Specialty Start Date End Date Jayme Parham MD [address] [place] [address] PCP - General Family Medicine 11/25/22 Jayme Parham MD [address] [place] [address] PCP - ACO Reach 12/05/22 Mick Farmer DO [address] [place] [address] Referring Physician Ophthalmology 08/21/23 Renato Santacruz MD 290 [place] [address] Referring Physician Urology 08/21/23 Chuy Wood MD [address] [facility] Professional building 1 [place] [address] Referring Physician Rheumatology 08/21/23 Rebeca Emerson, RACE CAR MECHANIC [address] [place] [address] Activities Specialist Family Medicine 03/04/25 03/11/25 documented as of this encounter
--- OUTSIDE RECORDS SUMMARY | 2025-04-05 10:52 | XMS_ITS | CCD ---
Author Organization [facility] Care Team Providers Care Fabric Stretcher Name Role Phone Astrid Baker Unavailable CAYETANO, [...] HEMEYER ., DR MCKINNEY Primary Care Unavailable CHRIS, JAYME J Primary Care Physician Unavail able MD Jayme Perez Primary Care Provider [phone] MD Eugenia Shepherd Attending Provider Lou Glover Unavailable Jayme Perez MD Primary Care Provider Jayme Perez MD Unavailable MD Jayme Perez Primary Care Provider MD Radames Monteiro Attending Provider Felicia Farmer DO Unavailable [phone] Renato Santacruz MD Unavailable Radames Monteiro MD Unavailable Jayme Perez MD Primary Care Provider [phone] Jayme Perez MD Unavailable Jayme Perez MD Primary Care Provider [phone] Jayme Perez MD Unavailable Lobito Tapia DO Attending Provider FELICIA FARMER Attending Unavailable CHRIS, JAYME Hazel Attending Unavailable HEMEYER, JAYME Hazel Attending Unavailable HEMEYER, JAYME Hazel Attending Unavailable JOSELYN NARVAEZ Attending Unavailable CHRIS, JAYME Hazel Referring Unavailable CLARA WHITTEN Attending Unavailable HEMEYER, JAYME Hazel Referring Unavailable HEMEYER, JAYME Hazel Attending Unavailable CLARA WHITTEN Attending Unavailable HEMEYER, JAYME Hazel Referring Unavailable CLARA WHITTEN Attending Unavailable JAYME PEREZ Referring Unavailable JAYME PEREZ Attending Unavailable JAYME PEREZ Referring Unavailable JAYME PEREZ Attending Unavailable Jayme Perez MD Primary Care Provider Kristie Meyer Attending Provider Eugenia Shepherd MD Attending Provider Eugenia SHEPHERD Attending Unavailable Eugenia SHEPHERD Referring Unavailable Eugenia SHEPHERD Attending Unavailable Eugenia SHEPHERD Attending Unavailable Lobito Tapia Admitting Unavailable Lobito Tapia Attending Unavailable Jayme Perez Primary Care Unavailable Radames Monteiro Admitting Unavailable Radames Monteiro Attending Unavailable Kristie Hermosillo Attending Unavailable Jayme Perez Primary Care Unavailable Kristie Hermosillo Admitting Unavailable Jayme Perez Primary Care Unavailable Eugenia Shepherd Admitting Unavailable Eugenia Shepherd Attending Unavailable Rebeca Ross Unavailable Allergies Allergy Classification Reported Allergen(s) Allergy Type Date of Onset Reaction(s) Facility (20 sources) Ciprofloxacin; Translations: [ciprofloxacin] Drug Allergy 02-19-20 22 anaphylaxis, Unknown (qualifier value) [facility] (1 source) sulfaSALAzine Drug Allergy rash [facility] Other (1 source) Ciprofloxacin Drug Allergy 03-30-20 13 [facility] Repository (2 sources) Ketorolac; Translations: [Toradol] Drug Allergy 03-30-20 13 [facility] (2 sources) metroNIDAZOLE; Translations: [MetroGel] Drug Allergy 03-30-20 13 [facility] (1 source) NSAIDs Drug allergy (disorder) 03-30-20 13 [facility] (2 sources) pioglitazone; Translations: [Actos] Drug Allergy 03-30-20 13 [facility] (1 source) Sulfonamides (Antibiotic) Drug allergy (disorder) 03-30-20 13 [facility] (16 sources) Ketorolac; Translations: [ketorolac] Drug Allergy 03-26-20 23 Unknown (qualifier value), Nausea (finding) [facility] Comment on above: Severe (20 sources) Latex; Translations: [Latex] Drug allergy 01-07-20 Blister of skin AND/OR mucosa (finding) [facility] (20 sources) Non-steroidal anti-inflammatory agent; Translations: [NSAIDs] Drug allergy 02-19-20 Unknown (qualifier value) [facility] (20 sources) pioglitazone; Translations: [pioglitazone] Drug Allergy 01-07-20 Unknown (qualifier value) [facility] (6 sources) Sulfonamides (Antibiotic); Translations: [sulfa drugs] Drug allergy Unknown (qualifier value) [facility] (20 sources) metroNIDAZOLE; Translations: [Metronidazole] Drug Allergy 02-19-20 Redness of Skin [facility] (6 sources) Sulfonamides (Antibiotic); Translations: [Sulfa (Sulfonamide Antibiotics)] Allergy to substance 03-26-20 Rash [facility] (6 sources) NSAIDS (Non-Steroidal Anti-Inflamma; Translations: [NSAIDS (Non-Steroidal Anti-Inflamma] Allergy to substance 03-26-20 Anaphylaxis, Anaphylaxis, rash [facility] (1 source) Non-steroidal anti-inflammatory agent Drug allergy [facility] [employer] Other (20 sources) Substance with sulfonamide structure and antibacterial mechanism of action (substance) Drug allergy 02-19-20 [facility] [employer] Other (20 sources) Ketorolac Allergy to substance 01-07-20 Nausea Only [facility] (20 sources) Hydrocodone Bit-Homatrop Mbr Propensity to adverse reactions 08-07-19 Dizziness [facility] (20 sources) Medical Adhesive Remover Drug Allergy 02-19-20 [facility] (1 source) Ciprofloxacin Drug Allergy 02-15-20 [facility] (1 source) Ketorolac Drug Allergy 02-15-20 [facility] (1 source) pioglitazone Drug Allergy 02-15-20 [facility] Medications Current Medications Medication [...] Refill(s) 0 Start Date: 08/13/23 Status: Ordered [id number] actuat albuterol 0.09 mg/actuat metered dose [...] Date: 09/19/20 Status: Ordered Cyanocobalamin-Liver Extract (Vitamin H18-Hklmk) Tablet (5 sources) Start: 03-26-2023 take 1 tablet by mouth once daily Cyanocobalamin-Liver Extract (Vitamin Y09-Kloaq) Tablet Active 1 TAB PO every day at noon March 26, 2023 12:00am Complies with drug therapy Start: 03-26-2023 take 1 tablet by valdo th once daily Start: 03-26-2023 take 1 tablet by valdo th once daily Cyanocobalamin-Liver Extract (Vitamin N83-Dwzlo) Tablet Active 1 TAB PO every day at noon March 26, 2023 12:00am Start: 03-26-2023 take 1 tablet by valdo th once daily Cyanocobalamin-Liver Extract (Vitamin C94-Fxphi) Tablet Active 1 TAB PO every day at noon March 25, 2023 11:00pm dextromethorphan hydrobromide 1.5 mg/ml / pyrilamine maleate 1.5 mg/ml oral solution (1 source) Uncompetitive Y-ucumby-M-aspartate Receptor Antagonist, Sigma-1 Agonist Start: 07-25-2023 take 10 mL by mouth every eight hours [place] DM 7.5-7.5 MG/5ML 10 mL Orally every 8 hours for 5 days Jul, Active docusate sodium 100 mg oral capsule (4 sources) take 1 capsule by mouth in [...] 08/17/19 Status: Ordered take 1 capsule by [facility] once daily esomeprazole (NexIUM) 20 [...] Lantus Active levoFLOXacin 250 mg oral tablet (7 sources) Quinolone Antimicrobial Start: 02-08-2025 End: 02-18-2025 take 1 tablet by mouth once daily levoFLOXacin (Levaquin) 250 MG tablet Indications: Kidney stone on left side TAKE 1 TABLET BY MOUTH DAILY FOR 10 DAYS 10 tablet 02/08/2025 Active meclizine hydrochloride 12.5 mg oral tablet [...] Ordered ondansetron 4 mg disintegrating oral tablet (14 sources) Serotonin-3 Receptor Antagonist Start: 02-08-2025 End: 02-18-2025 take 1 tablet by mouth every eight hours for nausea ondansetron ODT (Zofran-ODT) 4 MG disintegrating tablet Indications: Kidney stone on left side Take 1 tablet (4 mg) by mouth every 8 (eight) hours if needed for nausea or vomiting for up to 10 days 30 tablet 02/08/2025 Active Start: 08-13-2023 ondansetron 4 mg Tab [...] completed) oxybutynin chloride 5 mg oral tablet (4 sources) Cholinergic Muscarinic Antagonist oxybutynin (Ditropan) 5 [...] Spacer/Aero-Ho lding Chambers ([facility] Sp[facility] Indications: Chronic obstructive pulmonary disease with acute [...] 3 12-12-2022 Chronic Other aftercare (1 source) terminal carman (current) use of anticoagulants; Translations: [MANAGER REGIONAL CURRNT USE ANTICOAGULANTS] Onset: 3 Episodic Other aftercare (5 sources) Encounter for therapeutic drug level monitoring; Translations: [ENC THERAPEUTC DRUG LEVL MONITORING] Onset: 3 Episodic Other aftercare (1 source) Other terminal carman (current) drug therapy; Translations: [OTH CARE HOME CURRENT DRUG THERAPY] Onset: 3 Episodic Other [...] 12-12-2022 Episodic Other aftercare (1 source) terminal carman (current) use of oral hypoglycemic drugs; Translations: [MANAGER REGIONAL USE ORAL HYPOGLYCEMIC DX] Onset: 08-12-2022 Episodic Other aftercare (1 source) terminal carman (current) use of insulin; Translations: [MANAGER REGIONAL CURRENT USE OF INSULIN] Onset: 02-13-2022 Episodic [...] Test Name Value Interpretation Reference Range Facility [facility] PROTHROMBIN TIME INR W/O COUMon 03-08-2025 Interpretation and review of laboratory results Abnormal [facility] PT Coag (PPP) [Time] 27.8 s High [facility] TBH INR 2.92 [facility] Comment on above: DESIRED INR: 2.0-3.0 CONDITIONS NOT LISTED BELOW 2.5-3.5 FOR PROSTHETIC HEART VALVE REPLACEMENT 2.5-3.5 RECURRENT THROMBOSIS [facility] Capillary blood glucose piper urement by glucometer (mass/volume)Ordered By: Eugenia Shepherd on 02-14-2025 Glucose [Mass/Vol] 108 mg/dL Normal [facility] Comment on above: Random Glucose Refer ence Range is dependent on time and content of last meal. Glucose of more than 200 mg/dL in a nonstressed, ambulatory subject supports the diagnosis of Diabetes Mellitus. Result Comment: [place] om Glucose Reference Range is dependent on time and content of last meal. Glucose of more than 200 mg/dL in a nonstressed, ambulatory subject supports the diagnosis of Diabetes Mellitus. Performed By: #### G LULS #### Point of Care testing , Glucose Poct Glucometerson 0 02-14-2025 Commemt1 Glu2: Cleaned Meter Normal [facility] Comment on above: Result Comment: PERF ORMED BY: [facility] [address] [place] [address] PATHOLOGIST MOLD PREPARER IZABEL HCI M.D. Performed By: #### G LULS #### Point of Care testing , INR in Platelet poor plasma by Coagulation assayOrdered By: BLANCA SIM on 02-14-2025 INR Coag (PPP) [Relative time] 1.0 {INR} Normal [facility] Comment on above: INR Therapeutic [...] Performed By: #### P TT, PT #### [address] 02-14-2025 L ----- Specimen: [id number] Received: 02/14/25 Status: JET Mulligansuzy Num: [id number] Spec Type: Surgical Subm Dr: Eugenia Shepherd MD Tissues: A Gross Only (LEFT URETER STONE) Procedures: Level 1 Gross Age/ Patient Sex Location Account Attending Physician Wilda Sen 79/F [place] [id number] Eugenia Shepherd MD SPEC NUM: [id number] RECD: 02/14/25 STATUS: JET CRUZ NUM: [id number] LEONOR: 02/14/25 [facility] DR: Eugenia Shepherd MD ENTERED: 02/14/25 [facility] DR: SPEC TYPE: Surgical DEPT: S ENTERED BY: [id number] RECV BY: [id number] ORDERED: Level 1 Gross ORDERED: Level 1 Gross Pathological Diagnosis Left ureteral stone, removal: - Fragments of calculus. Clinical Information Left kidney stones Gross Description Received fresh labeled with the patients name, date of , and left ureter stone are six escobedo-chaudhry, granular, 0.1 to 0.3 cm in greatest dimension calculi. The specimen is sent to [facility] for chemical analysis. GROSS ONLY-JG Microscopic Description Gross examination only. CPT Codes 81138 Specimen: [id number] Received: 02/14/25 Status: JET Cruz Num: [id number] Spec Type: Surgical Subm Dr: Eugenia Shepherd MD Tissues: A Gross Only (LEFT URETER STONE) Procedures: Level 1 Gross Patient: Wilda Sen [id number] (Continued) Signed (signature on file) Mikel Quiros MD 02/15/25 1034 Normal [facility] No Panel InformationOrdered By: Eugenia Shepherd on 02-14-2025 Bedside Glucose Comment Glu2: cleaned meter [facility] Partial Thromboplastin Timeo n 02-14-2025 aPTT Coag (Bld) [Time] 26.6 s Normal 25.1-36.5 [facility] Comment on above: Result Comment: A he matocrit value greater than 55% may lead to inaccurate results in coagulation testing. Patients having hematocrit values >55% require a special collection tube for coagulation studies. Please contact the laboratory at [phone] for redraw instructions. PERFORMED BY: [place] [address] PATHOLOGIST MOLD PREPARER IZABEL CHI M.D. Performed By: #### P TT, PT #### [facility] [address] [place] [address] Prothrombin time (PT)Ordered By: BLANCA SIM on 02-14-2025 PT Coag (PPP) [Time] 11.6 s Normal 9.0-12.9 [facility] Comment on above: A hematocrit value g reater than 55% may lead to inaccurate results in coagulation testing. Patients having hematocrit values >55% require a special collection tube for coagulation studies. Please contact the laboratory at [phone] for redraw instructions. Result Comment: A he matocrit value greater than 55% may lead to inaccurate results in coagulation testing. Patients having hematocrit values >55% require a special collection tube for coagulation studies. Please contact the laboratory at [phone] for redraw instructions. Performed By: #### P TT, PT #### [address] X-ray reportOrdered By: Mj Zhou on 02-14-2025 Study report [facility] [place] [address] [place] [address] XRay Report Signed Patient: Wilda Sen MR#: [id number] : 1945 Acct:[id number] Age/Sex: 79 / F ADM Date: 5 Loc: [place] Room: Type: [facility] Attending Dr: Eugenia Shepherd MD [...] MM. Impression dictated by: Kevan Zhou Jr., JonesOAlbin 02/14/2025 12:37 PM Dictation Location: [place] [address] Transcribed By: [facility] 02/14/25 1237 Dictated By: Kevan Zhou Jr, DO 02/14/25 1235 Signed By: 02/14/25 1237 [facility] XR KUBon 02-14-2025 XR KUB [facility] [address] XRay Report Signed Patient: Wilda Sen MR#: [id number] 8 : 1945 Acct:[id number] Age/Sex: 79 / F ADM Date: 02/14/25 Loc: [place] Room: Type: [facility] Attending Dr: Eugenia Shepherd MD Copies [...] 9:02 PM Dictation Location: RADIO-PC-29 Transcribed By: [facility] 02/14/252101 Dictated By: Tavon Young MD 02/14/252099 Signed By: 02/14/252101 Normal [facility] XR KUB [facility] [place] [address] XRay Report Signed Patient: Wilda Sen MR#: [id number] 8 : 1945 Acct:[id number] Age/Sex: 79 / F ADM Date: 02/14/25 Loc: [place] Room: Type: [facility] Attending Dr: Eugenia Shepherd MD [...] Jr., D.O. 02/14/2025 12:37 PM Dictation Location: RADIO-PC-23 Transcribed By: [facility] 02/14/25 1237 Dictated By: Kevan Zhou Jr, DO 02/14/25 1235 Signed By: 02/14/25 1237 Normal [facility] aPTT in Platelet poor plasma by Coagulation assayOrdered By: BLANCA SIM on 02-14-2025 aPTT Coag (PPP) [Time] 26.6 s 25.1-36.5 [facility] Comment on above: A hematocrit value g reater than 55% may lead to inaccurate results in coagulation testing. Patients having hematocrit values >55% require a special collection tube for coagulation studies. Please contact the laboratory at [phone] for redraw instructions. ECG 12 lead ECGon 02-11-2025 ECG 12 lead ECG [facility] [place] [address] Electrocardiograph Report Signed Patient: Wilda Sen MR#: [id number] 8 : 1945 Acct:[id number] Age/Sex: 79 / F ADM Date: 02/11/25 Loc: Room: Type: [facility] Attending Dr: Kristie MCFARLAND Ordering Provider: BRUNA [...] axis shifted right Confirmed by Dez Chavez ([id number]) on 02/12/2025 3:51:55 PM Referred By: Electronically Signed By: Dez Chavez Transcribed By: MUS Signed By Dez Chavez MD 02/12/25 2128 Normal [facility] Urine Cultureon 02-04-2025 Bacteria identified Cx Nom (U) ORGANISM: Enterobacter cloacae complex (O:ENTCLOCPLX) Rifle Count 25,000 Aerobic KIKA Charge (NMIC56) SUSCEPTIBILITY [...] RESISTANT TO ALL B-LACTAM DRUGS. PERFORMED BY: [place] [address] PATHOLOGIST MOLD PREPARER IZABEL CHI M.D. Normal [facility] Comment on above: Performed By: #### C UU #### [address] Urine cultureOrdered By: Jonatan Tapia on 02-04-2025 Bacteria identified Cx Nom (U) Enterobacter cloacae complex Abnormal [facility] XR ABDOMEN 1Von 02-02-2025 [place] [address] XRay Report Signed Patient: WILDA SEN MR#: [id number] : 1945 Acct:[id number] Age/Sex: 79 / F ADM Date: 02/02/25 Loc: RAD Attending Dr: Eugenia Shepherd M.D. Ordering Physician: Eugenia Shepherd M.D. Date of Service: 02/02/25 Procedure(s): XR abdomen 1V Accession Number(s): [id number] cc: Eugenia Shepherd M.D.; JAYME PEREZ [place] [address] Patient Name: WILDA SEN MRN: [facility]:[id number] date: 1945 Sex: F Assigned Patient Location: [facility] Current Patient Location: [facility] Accession/Order Number: [id number] Exam Date: 02/02/2025 10:29 Report Date: 02/02/2025 [...] Jr., D.O. 02/02/2025 10:30 AM Dictation Location: [place] [address] Electronically authenticated by: [id number] Y Date: 02/02/2025 10:30 Dictated By: Kevan Zhou M.D. Signed By: 02/02/25 1033 DD/ 1030 TD/TT: Filtrose Crusher: [facility] Rand Hui MD - 02/02/2025 [place] [address] XRay Report Signed Patient: WILDA SEN MR#: [id number] : 1945 Acct:[id number] Age/Sex: 79 / F ADM Date: 02/02/25 Loc: [facility] Attending Dr: Eugenia Shepherd M.D. Ordering Physician: Eugenia Shepherd M.D. Date of Service: 02/02/25 Procedure(s): XR abdomen 1V Accession Number(s): [id number] cc: Eugenia Shepherd M.D.; JAYME PEREZ [address] [address] Patient Name: WILDA SEN MRN: [id number] date: 1945 Sex: F Assigned Patient Location: [facility] Current Patient Location: [facility] Accession/Order Number: [id number] Exam Date: 02/02/2025 10:29 Report Date: 02/02/2025 [...] Jr., D.O. 02/02/2025 10:30 AM Dictation Location: [place] [address] Electronically authenticated by: [id number] Y Date: 02/02/2025 10:30 Dictated By: Kevan Zhou M.D. Signed By: 02/02/25 1033 DD/ 1030 TD/TT: Filtrose Crusher: [facility] Radiology Study observation (narrative) [facility] XR ABDOMEN 1VOrdered By: Gibson iologist Radiology on 02-02-2025 [facility] Work Phone: ALL CBC WITH AUTO DIFFon BASOPHILS ABSOLUTE AUTO 0.1 [facility] Basophils/100 WBC (Bld) 0.7 % 0.2 - 2.0 % [facility] Eosinophils/100 WBC (Bld) 1.9 % 0.9 - 7.0 % [facility] Erythrocyte distribution width (RBC) [Ratio] 14.5 % 11.0 - 15.0 % [facility] Hematocrit (Bld) [Volume fraction] 37 % 36.0 - 48.0 % [facility] Hemoglobin (Bld) [Mass/Vol] 12 g/dL 12.0 - 16.0 g/dL [facility] IMMATURE GRANULOCYTES ABS AUTO 0.03 [facility] Immature granulocytes/100 WBC (Bld) 0.4 % 0.0 - 0.5 % [facility] Interpretation and review of laboratory results Abnormal [facility] LYMPHOCYTES ABSOLUTE AUTO 2.2 [facility] Lymphocytes/100 WBC (Bld) 30.9 % 20.5 - 60.0 % [facility] MCH (RBC) [Entitic mass] 31.3 pg 26.7 - 34.0 pg [facility] MCHC (RBC) [Mass/Vol] 32.4 g/dL 29.9 - 35.2 g/dL [facility] MCV (RBC) [Entitic vol] 96.4 fL 81.0 - 99.0 fL [facility] MONOCYTES ABSOLUTE AUTO 0.6 [facility] Monocytes/100 WBC (Bld) 8.3 % 1.7 - 12.0 % [facility] NEUTROPHILS ABSOLUTE AUTO 4.1 [facility] Neutrophils/100 WBC (Bld) 57.8 % 43.0 - 75.0 % [facility] Platelet mean volume (Bld) [Entitic vol] 8.9 fL Low 9.5 - 13.5 fL [facility] EO # 0.1 [facility] PLT 308 [facility] RBC 3.84 Low [facility] WBC 7 [facility] MR BRAIN W AND WO CONTRAST [...] BY: Noé Elizondo MD Normal Not Available [facility] PROTHROMBIN TIME INR W/O COUMon 01-06-2025 Interpretation and review of laboratory results Abnormal [facility] PT Coag (PPP) [Time] 21.7 s High [facility] INR 2.22 [facility] Comment on above: DESIRED INR: 2.0-3.0 CONDITIONS NOT LISTED BELOW 2.5-3.5 FOR PROSTHETIC HEART VALVE REPLACEMENT 2.5-3.[address] [facility] PROTHROMBIN TIME INR W/O COUMon 12-08-2024 Interpretation and review of laboratory results Abnormal [facility] PT Coag (PPP) [Time] 22.8 s High [facility] INR 2.34 [facility] Comment on above: DESIRED INR: 2.0-3.0 CONDITIONS NOT LISTED BELOW 2.5-3.5 FOR PROSTHETIC HEART VALVE REPLACEMENT 2.5-3.5 RECURRENT THROMBOSIS [facility] ALL CBC WITH AUTO DIFFon BASOPHILS ABSOLUTE AUTO 0.1 [facility] Basophils/100 WBC (Bld) 0.9 % 0.2 - 2.0 % [facility] Eosinophils/100 WBC (Bld) 5.6 % 0.9 - 7.0 % [facility] Erythrocyte distribution width (RBC) [Ratio] 14.6 % 11.0 - 15.0 % [facility] Hematocrit (Bld) [Volume fraction] 39.6 % 36.0 - 48.0 % [facility] Hemoglobin (Bld) [Mass/Vol] 12.7 g/dL 12.0 - 16.0 g/dL [facility] IMMATURE GRANULOCYTES ABS AUTO 0.02 [facility] Immature granulocytes/100 WBC (Bld) 0.4 % 0.0 - 0.5 % [facility] Interpretation and review of laboratory results Abnormal [facility] LYMPHOCYTES ABSOLUTE AUTO 1.8 [facility] Lymphocytes/100 WBC (Bld) 32 % 20.5 - 60.0 % [facility] MCH (RBC) [Entitic mass] 31 pg 26.7 - 34.0 pg [facility] MCHC (RBC) [Mass/Vol] 32.1 g/dL 29.9 - 35.2 g/dL [facility] MCV (RBC) [Entitic vol] 96.6 fL 81.0 - 99.0 fL [facility] MONOCYTES ABSOLUTE AUTO 0.6 [facility] Monocytes/100 WBC (Bld) 9.9 % 1.7 - 12.0 % [facility] NEUTROPHILS ABSOLUTE AUTO 2.9 [facility] Neutrophils/100 WBC (Bld) 51.2 % 43.0 - 75.0 % [facility] Platelet mean volume (Bld) [Entitic vol] 8.8 fL Low 9.5 - 13.5 fL [facility] EO # 0.3 [facility] PLT 284 [facility] RBC 4.1 Low [facility] WBC 5.7 [facility] MICROALB CREAT RATIO RAN DOMon 11-02-2024 CREATININE URINE RANDOM 149.56 mg/dL 20.00 - 300.00 mg/dL [facility] Interpretation and review of laboratory results Abnormal [facility] MICROALBUM CREATININE RATIO UR 129.7 mg/g High 0.0 - 29.9 mg/g [facility] Comment on above: NO MICROALBUMINURIA 0-29 MG/G CLINICAL MICROALBUMINURIA 30-300 MG/G MACROALBUMINURIA >300 MG/G MICROALBUMIN URINE RANDOM 19.4 mg/dL NINF - 30.0 mg/dL [facility] PROTHROMBIN TIME INR W/O COUMon 10-25-2024 Interpretation and review of laboratory results Abnormal [facility] PT Coag (PPP) [Time] 28.7 s High [facility] INR 3.02 [facility] Comment on above: DESIRED INR: 2.0-3.0 CONDITIONS NOT LISTED BELOW 2.5-3.5 FOR PROSTHETIC HEART VALVE REPLACEMENT 2.5-3.5 RECURRENT THROMBOSIS [facility] ALL CBC WITH AUTO DIFFon BASOPHILS ABSOLUTE AUTO 0.1 [facility] Basophils/100 WBC (Bld) 1 % 0.2 - 2.0 % [facility] Eosinophils/100 WBC (Bld) 3.7 % 0.9 - 7.0 % [facility] Erythrocyte distribution width (RBC) [Ratio] 14.4 % 11.0 - 15.0 % [facility] Hematocrit (Bld) [Volume fraction] 38.7 % 36.0 - 48.0 % [facility] Hemoglobin (Bld) [Mass/Vol] 12.4 g/dL 12.0 - 16.0 g/dL [facility] IMMATURE GRANULOCYTES ABS AUTO 0.02 [facility] Immature granulocytes/100 WBC (Bld) 0.3 % 0.0 - 0.5 % [facility] Interpretation and review of laboratory results Abnormal [facility] LYMPHOCYTES ABSOLUTE AUTO 1.8 [facility] Lymphocytes/100 WBC (Bld) 28.4 % 20.5 - 60.0 % [facility] MCH (RBC) [Entitic mass] 30.9 pg 26.7 - 34.0 pg [facility] MCHC (RBC) [Mass/Vol] 32 g/dL 29.9 - 35.2 g/dL [facility] MCV (RBC) [Entitic vol] 96.5 fL 81.0 - 99.0 fL [facility] MONOCYTES ABSOLUTE AUTO 0.4 [facility] Monocytes/100 WBC (Bld) 5.9 % 1.7 - 12.0 % [facility] NEUTROPHILS ABSOLUTE AUTO 3.8 [facility] Neutrophils/100 WBC (Bld) 60.7 % 43.0 - 75.0 % [facility] Platelet mean volume (Bld) [Entitic vol] 8.9 fL Low 9.5 - 13.5 fL [facility] EO # 0.2 [facility] PLT 292 [facility] RBC 4.01 Low [facility] WBC 6.3 [facility] PROTHROMBIN TIME INR W/O COUMon 09-27-2024 Interpretation and review of laboratory results Abnormal [facility] PT Coag (PPP) [Time] 26.7 s High [facility] INR 2.79 [facility] Comment on above: DESIRED INR: 2.0-3.0 CONDITIONS NOT LISTED BELOW 2.5-3.5 FOR PROSTHETIC HEART VALVE REPLACEMENT 2.5-3.[address] [facility] PROTHROMBIN TIME INR W/O COUMon 09-13-2024 Interpretation and review of laboratory results Abnormal [facility] PT Coag (PPP) [Time] 17.8 s High [facility] INR 1.78 [facility] Comment on above: DESIRED INR: 2.0-3.0 CONDITIONS NOT LISTED BELOW 2.5-3.5 FOR PROSTHETIC HEART VALVE REPLACEMENT 2.5-3.[address] [facility] PROTHROMBIN TIME INR W/O COUMon 08-17-2024 Interpretation and review of laboratory results Abnormal [facility] PT Coag (PPP) [Time] 19.7 s High [facility] INR 1.99 [facility] Comment on above: DESIRED INR: 2.0-3.0 CONDITIONS NOT LISTED BELOW 2.5-3.5 FOR PROSTHETIC HEART VALVE REPLACEMENT 2.5-3.5 RECURRENT THROMBOSIS [facility] Ophthalmic OCT panelon 08-04 [facility] Right Eye Images reviewed and comparison [...] thickness both eyes (OU). Stable. [facility] Study observation (narrative) [facility] PROTHROMBIN TIME INR W/O COUMon 07-19-2024 Interpretation and review of laboratory results Abnormal [facility] PT Coag (PPP) [Time] 27 s High [facility] INR 2.82 [facility] Comment on above: DESIRED INR: 2.0-3.0 CONDITIONS NOT LISTED BELOW 2.5-3.5 FOR PROSTHETIC HEART VALVE REPLACEMENT 2.5-3.5 RECURRENT THROMBOSIS [facility] Ambulatory Visit Summaryon 1 Ambulatory Visit Summary Ambulatory Visit Summary WILDA SEN :1945 Visit Date:07/12/2024 Ambulatory Visit Instructions Your Diagnosis Kidney stone Adrenal nodule Anticoagulated Your Care Team Attending Physician - Eugenia SHEPHERD MD Primary Care Physician - CHRIS [...] Schedule the Following Appointments Follow Up with Eugenia SHEPHERD MD, URL When: Where: [facility] [address]- Medications What How Much When Instructions [...] cancer Hx of detention use of blood thinners Kidney stone Kidney [...] depending (more content not included)... Normal [facility] Reminderson 07-12-2024 Reminders Reminders From: Julita [...] ) Other: PROVIDER RELATED REMINDER:_ ( ) Housetrailer Servicer ( ) Call Pharmacy ( ) Call Lab ( ) Other: Special Instructions:_ Comments:_ [place] [facility] Reminders Reminders From: Jo-Ann Schaeffer To: EU - Administrative; Sent: 07/12/2024 11:46:18 EST Show up: 04/17/2026 11:46:00 EDT Subject: 2 YR AND KUB Due Date/Time: 07/03/2026 11:46:00 EST Reminder/Recall SCHEDULE IN 2 YRS AND KUB W/ DR CORA Floyd [facility] Urology Office/Clinic Noteon 07-12-2024 Urology Office/Clinic Note Urology Office/Clinic Note Chief Complaint 3 month F/U w KUB HPI Staff 18 mo with KUB due to kidney stones. KUB 07/05/24[place] [place]no uro meds Dysuria: denies Incomplete [...] nodule. Not worrisome, stable. 3. Anticoagulated (Z79.01: detention (current) use of [...] Information CORA AGUIAR, Eugenia Venegas, URL [address] [address]- Additional Instructions: 18 mos with KUB Patient Education Dietary Guidelines to Help Prevent Kidney Stones I, Julita Vu, personally scribed for Dr. Shepherd on 07/12/2024 11:45:03. . Portions of this record may have been created with voice recognition artificial intelligence software, specifically [employer], [employer] and or [employer]. Substitutions may have occurred due to the inherent limitations of voice recognition and artificial intelligence software. Problem List/Past Medical History Ongoing Abdominal pain Adrenal nodule Afib Anticoagulated Anxiety BMI 27.0-27.9,adult Depression Diabetes Flank pain Former smoker Frequent urination Heart murmur History of uterine cancer Hx of terminal carman use of blood thinners Kidney stone Kidney [...] 8 (more content not included)... Normal [facility] Comment on above: Result Comment: Elec tronically Signed By: Eugenia SHEPHERD MD\.br\Date and Time Signed: 07/12/24 12:24 EST\.br\Electronically Co-Signed By: Julita Vu\.br\Date and Time Co-Signed: 07/12/24 11:46 EST [facility] PROTHROMBIN TIME INR W/O COUMon 07-01-2024 Interpretation and review of laboratory results Abnormal [facility] PT Coag (PPP) [Time] 30.3 s High [facility] INR 3.21 [facility] Comment on above: DESIRED INR: 2.0-3.0 CONDITIONS NOT LISTED BELOW 2.5-3.5 FOR PROSTHETIC HEART VALVE REPLACEMENT 2.5-3.5 RECURRENT THROMBOSIS [facility] ALL CBC WITH AUTO DIFFon BASOPHILS ABSOLUTE AUTO 0.1 [facility] Basophils/100 WBC (Bld) 0.8 % 0.2 - 2.0 % [facility] Eosinophils/100 WBC (Bld) 3.2 % 0.9 - 7.0 % [facility] Erythrocyte distribution width (RBC) [Ratio] 14.5 % 11.0 - 15.0 % [facility] Hematocrit (Bld) [Volume fraction] 38.1 % 36.0 - 48.0 % [facility] Hemoglobin (Bld) [Mass/Vol] 12.3 g/dL 12.0 - 16.0 g/dL [facility] IMMATURE GRANULOCYTES ABS AUTO 0.03 [facility] Immature granulocytes/100 WBC (Bld) 0.5 % 0.0 - 0.5 % [facility] Interpretation and review of laboratory results Abnormal [facility] LYMPHOCYTES ABSOLUTE AUTO 2 [facility] Lymphocytes/100 WBC (Bld) 30.8 % 20.5 - 60.0 % [facility] MCH (RBC) [Entitic mass] 31.6 pg 26.7 - 34.0 pg [facility] MCHC (RBC) [Mass/Vol] 32.3 g/dL 29.9 - 35.2 g/dL [facility] MCV (RBC) [Entitic vol] 97.9 fL 81.0 - 99.0 fL [facility] MONOCYTES ABSOLUTE AUTO 0.5 [facility] Monocytes/100 WBC (Bld) 7.7 % 1.7 - 12.0 % [facility] NEUTROPHILS ABSOLUTE AUTO 3.8 [facility] Neutrophils/100 WBC (Bld) 57 % 43.0 - 75.0 % [facility] Platelet mean volume (Bld) [Entitic vol] 8.9 fL Low 9.5 - 13.5 fL [facility] EO # 0.2 [facility] PLT 300 [facility] RBC 3.89 Low [facility] WBC 6.6 [facility] PROTHROMBIN TIME INR W/O COUMon 05-14-2024 Interpretation and review of laboratory results Abnormal [facility] PT Coag (PPP) [Time] 23 s High [facility] INR 2.36 [facility] Comment on above: DESIRED INR: 2.0-3.0 CONDITIONS NOT LISTED BELOW 2.5-3.5 FOR PROSTHETIC HEART VALVE REPLACEMENT 2.5-3.5 RECURRENT THROMBOSIS [facility] CREATININEon 04-22-2024 Creatinine [Mass/Vol] 0.84 mg/dL 0.55 - 1.02 mg/dL [facility] GFR/1.73 sq M.predicted CKD-EPI (S/P/Bld) [Vol rate/Area] >60 >=60 mL/min/1.7 3m 2 [facility] EGFR-NON AF BRAZILIAN >60 >=60 mL/min/1.7 3m 2 [facility] ALL CBC WITH AUTO DIFFon BASOPHILS ABSOLUTE AUTO 0.0 [facility] Basophils/100 WBC (Bld) 0.6 % 0.2 - 2.0 % [facility] Eosinophils/100 WBC (Bld) 2.1 % 0.9 - 7.0 % [facility] Erythrocyte distribution width (RBC) [Ratio] 14.1 % 11.0 - 15.0 % [facility] Hematocrit (Bld) [Volume fraction] 41.8 % 36.0 - 48.0 % [facility] Hemoglobin (Bld) [Mass/Vol] 13.5 g/dL 12.0 - 16.0 g/dL [facility] IMMATURE GRANULOCYTES ABS AUTO 0.02 [facility] Immature granulocytes/100 WBC (Bld) 0.3 % 0.0 - 0.5 % [facility] Interpretation and review of laboratory results Abnormal [facility] LYMPHOCYTES ABSOLUTE AUTO 2.1 [facility] Lymphocytes/100 WBC (Bld) 32.2 % 20.5 - 60.0 % [facility] MCH (RBC) [Entitic mass] 31.0 pg 26.7 - 34.0 pg [facility] MCHC (RBC) [Mass/Vol] 32.3 g/dL 29.9 - 35.2 g/dL [facility] MCV (RBC) [Entitic vol] 95.9 fL 81.0 - 99.0 fL [facility] MONOCYTES ABSOLUTE AUTO 0.5 [facility] Monocytes/100 WBC (Bld) 6.8 % 1.7 - 12.0 % [facility] NEUTROPHILS ABSOLUTE AUTO 3.8 [facility] Neutrophils/100 WBC (Bld) 58.0 % 43.0 - 75.0 % [facility] Platelet mean volume (Bld) [Entitic vol] 8.6 fL Low 9.5 - 13.5 fL [facility] TB EO # 0.1 [facility] PLT 316 [facility] RBC 4.36 [facility] WBC 6.6 [facility] PROTHROMBIN TIME INR W/O COUMon 04-13-2024 Interpretation and review of laboratory results Abnormal [facility] PT Coag (PPP) [Time] 27.7 s High [facility] INR 2.90 [facility] Comment on above: DESIRED INR: 2.0-3.0 CONDITIONS NOT LISTED BELOW 2.5-3.5 FOR PROSTHETIC HEART VALVE REPLACEMENT 2.5-3.5 RECURRENT THROMBOSIS [facility] Magnesium [Mass/volume] in S fartun or PlasmaOrdered By: Radames Monteiro on 03-31-2024 Magnesium [Mass/Vol] 1.9 mg/dL Normal 1.9-2.7 [facility] Comment on above: Result Comment: PERF ORMED BY: [place] [address] PATHOLOGIST [employer]OLD PREPARER BERNIE GRAYSON M.D. Performed By: #### M Maricruz PHOS #### [address] Phosphate [Mass/volume] in S fartun or PlasmaOrdered By: Radames Monteiro on 03-31-2024 Phosphate [Mass/Vol] 3.7 mg/dL Normal 2.5-4.5 [facility] Comment on above: Performed By: #### M VALENTINA Alcantara #### [facility] [address] ALL CBC WITH AUTO DIFFon BASOPHILS ABSOLUTE AUTO 0.0 [facility] Basophils/100 WBC (Bld) 0.6 % 0.2 - 2.0 % [facility] Eosinophils/100 WBC (Bld) 5.1 % 0.9 - 7.0 % [facility] Erythrocyte distribution width (RBC) [Ratio] 14.3 % 11.0 - 15.0 % [facility] Hematocrit (Bld) [Volume fraction] 41.5 % 36.0 - 48.0 % [facility] Hemoglobin (Bld) [Mass/Vol] 13.3 g/dL 12.0 - 16.0 g/dL [facility] IMMATURE GRANULOCYTES ABS AUTO 0.01 [facility] Immature granulocytes/100 WBC (Bld) 0.1 % 0.0 - 0.5 % [facility] Interpretation and review of laboratory results Abnormal [facility] LYMPHOCYTES ABSOLUTE AUTO 2.9 [facility] Lymphocytes/100 WBC (Bld) 39.4 % 20.5 - 60.0 % [facility] MCH (RBC) [Entitic mass] 30.9 pg 26.7 - 34.0 pg [facility] MCHC (RBC) [Mass/Vol] 32.0 g/dL 29.9 - 35.2 g/dL [facility] MCV (RBC) [Entitic vol] 96.5 fL 81.0 - 99.0 fL [facility] MONOCYTES ABSOLUTE AUTO 0.4 [facility] Monocytes/100 WBC (Bld) 6.1 % 1.7 - 12.0 % [facility] NEUTROPHILS ABSOLUTE AUTO 3.5 [facility] Neutrophils/100 WBC (Bld) 48.7 % 43.0 - 75.0 % [facility] Platelet mean volume (Bld) [Entitic vol] 8.7 fL Low 9.5 - 13.5 fL [facility] EO # 0.4 [facility] TB PLT 291 [facility] TB RBC 4.30 [facility] TB WBC 7.2 [facility] PROTHROMBIN TIME INR W/O COUMon 03-17-2024 Interpretation and review of laboratory results Abnormal [facility] PT Coag (PPP) [Time] 28.2 s High [facility] INR 2.96 [facility] Comment on above: DESIRED INR: 2.0-3.0 CONDITIONS NOT LISTED BELOW 2.5-3.5 FOR PROSTHETIC HEART VALVE REPLACEMENT 2.5-3.5 [facility]-2023 Urea nitrogen [Mass/Vol] 12.0 mg/dL 7.0 - 18.0 mg/dL [facility] ALL CARBON DIOXIDEon CO2 [Moles/Vol] 30.1 mmol/L 21.0 - 32.0 mmol/L [facility] ALL CHLORIDEon 08-20-2023 Chloride [Moles/Vol] 104 mmol/L 98 - 10 7 mmol/L [facility] ALL PHOSPHOROUSon 08-20-2023 Phosphate [Mass/Vol] 4.1 mg/dL 2.6 - 4 .7 mg/dL [facility] ALL SODIUMon 08-20-2023 Sodium [Moles/Vol] 141 mmol/L 136 - 145 mmol/L [facility] ALL URIC ACIDon 08-20-2023 Urate [Mass/Vol] 4.4 mg/dL 2.6 - 6.0 mg/dL [facility] CALCIUMon 08-20-2023 Calcium [Mass/Vol] 9.1 mg/dL 8.5 - 10. 1 mg/dL [facility] No Panel Informationon 08-20 [facility] CREATININEon 08-20-2023 Creatinine [Mass/Vol] 0.86 mg/dL 0.55 - 1.02 mg/dL [facility] GFR/1.73 sq M.predicted CKD-EPI (S/P/Bld) [Vol rate/Area] >60 60 - PINF [facility] EGFR-NON AF BRAZILIAN >60 60 - PINF [facility] COVID/FLU/RSV RT-PCRon 07-25 SARS-CoV-2 (COVID-19) RNA TREASURE+probe Ql (Unsp spec) Negative [place] [facility] Other COVID/FLU/RSV RT-PCR Negative [facility] Other COVID/FLU/RSV RT-PCR Positive [place] [facility] Other Activated partial thrombopla stin time (aPTT) in platelet poor plasma by coagulation aOrdered By: Eugenia Shepherd on 03-26-2023 aPTT Coag (PPP) [Time] 35.9 s 25.1-36.5 [facility] Comment on above: A hematocrit value g reater than 55% may lead to inaccurate results in coagulation testing. Patients having hematocrit values >55% require a special collection tube for coagulation studies. Please contact the laboratory at [phone] for redraw instructions. Basophils Auto (Bld) [#/Vol] Ordered By: Eugenia Shepherd on 03-26-2023 Basophils (Bld) [#/Vol] 0.0 10*3/uL 0.0-0.2 [facility] Basophils/100 WBC Auto (Bld) Ordered By: Eugenia Shepherd on 03-26-2023 Basophils/100 WBC (Bld) 0.8 % . [facility] Calcium [Mass/volume] in Ser um or PlasmaOrdered By: Eugenia Shepherd on 03-26-2023 Calcium [Mass/Vol] 10.0 mg/dL 8.6-10.3 [facility] Carbon dioxide, total [Moles /volume] in Serum or PlasmaOrdered By: Eugenia Shepherd on 03-26-2023 CO2 [Moles/Vol] 30.0 mmol/L 21.0-31.0 [facility] Chloride [Moles/volume] in S fartun or PlasmaOrdered By: Eugenia Shepherd on 03-26-2023 Chloride [Moles/Vol] 104 mmol/L 98-107 [facility] Creatinine [Mass/volume] in Serum or PlasmaOrdered By: Eugenia Shepherd on 03-26-2023 Creatinine [Mass/Vol] 0.85 mg/dL 0.60-1.20 [facility] Eosinophils Auto (Bld) [#/Vo l]Ordered By: Eugenia Shepherd on 03-26-2023 Eosinophils (Bld) [#/Vol] 0.3 10*3/uL 0.0-0.45 [facility] Eosinophils/100 WBC Auto (Bl d)Ordered By: Eugenia Shepherd on 03-26-2023 Eosinophils/100 WBC (Bld) 4.3 % . [facility] Erythrocyte distribution wid th Auto (RBC) [Ratio]Ordered By: Eugenia Shepherd on 03-26-2023 Erythrocyte distribution width (RBC) [Ratio] 14.8 % 11.9-15.3 [facility] Glucose [Mass/volume] in Ser um or PlasmaOrdered By: Eugenia Shepherd on 03-26-2023 Glucose [Mass/Vol] 111 mg/dL 70-100 [facility] Comment on above: ADA recommended refe rence rangeRandom Glucose Reference Range is dependent on time and content of last meal. Glucose of more than 200 mg/dL in a nonstressed, ambulatory subject supports the diagnosis of Diabetes Mellitus. Hematocrit Auto (Bld) [Volum e fraction]Ordered By: Eugenia Shepherd on 03-26-2023 Hematocrit (Bld) [Volume fraction] 40.3 % 34.0-46.4 [facility] Hemoglobin [Mass/volume] in BloodOrdered By: Eugenia Shepherd on 03-26-2023 Hemoglobin (Bld) [Mass/Vol] 13.3 g/dL 11.8-15.4 [facility] INR in Platelet poor plasma by Coagulation assayOrdered By: Eugenia Shepherd on 03-26-2023 INR Coag (PPP) [Relative time] 2.3 {INR} [facility] Comment on above: INR Therapeutic [...] RBC Auto (Bld) [#/Vol] 5.9 10*3/uL 3.8-11.6 [facility] Lymphocytes Auto (Bld) [#/Vo l]Ordered By: Eugenia Shepherd on 03-26-2023 Lymphocytes (Bld) [#/Vol] 2.2 10*3/uL 1.00-4.8 [facility] Lymphocytes/100 WBC Auto (Bl d)Ordered By: Eugenia Shepherd on 03-26-2023 Lymphocytes/100 WBC (Bld) 36.9 % . [facility] MCH Auto (RBC) [Entitic mass ]Ordered By: Eugenia Shepherd on 03-26-2023 MCH (RBC) [Entitic mass] 31.1 pg 24.7-34.3 [facility] MCHC Auto (RBC) [Mass/Vol]Or dered By: Eugenia Shepherd on 03-26-2023 MCHC (RBC) [Mass/Vol] 32.9 g/dL 32.0-35.0 [facility] MCV Auto (RBC) [Entitic vol] Ordered By: Eugenia Shepherd on 03-26-2023 MCV (RBC) [Entitic vol] 94.4 fL 80-100 [facility] Monocytes Auto (Bld) [#/Vol] Ordered By: Eugenia Shepherd on 03-26-2023 Monocytes (Bld) [#/Vol] 0.5 10*3/uL 0.0-0.8 [facility] Monocytes/100 WBC Auto (Bld) Ordered By: Eugenia Shepherd on 03-26-2023 Monocytes/100 WBC (Bld) 7.8 % . [facility] Neutrophils Auto (Bld) [#/Vo l]Ordered By: Eugenia Shepherd on 03-26-2023 Neutrophils (Bld) [#/Vol] 3.0 10*3/uL 1.8-7.7 [facility] Neutrophils/100 WBC Auto (Bl d)Ordered By: Eugenia Shepherd on 03-26-2023 Neutrophils/100 WBC (Bld) 50.2 % . [facility] No Panel InformationOrdered By: Eugenia Shepherd on 03-26-2023 Estimated GFR (CKD-EPI) > 60.0 mL/Min [facility] Creatinine Clearance (Chem N/A [facility] Nucleated erythrocytes [Pres ence] in Blood by Automated countOrdered By: Eugenia Shepherd on 03-26-2023 Nucleated RBC Auto Ql (Bld) 0.3 /100{WBC} 0-0.5 [facility] Platelet mean volume Auto (B ld) [Entitic vol]Ordered By: Eugenia Shepherd on 03-26-2023 Platelet mean volume (Bld) [Entitic vol] 7.1 fL 6.3-10.7 [facility] Platelets Auto (Bld) [#/Vol] Ordered By: Eugenia Shepherd on 03-26-2023 Platelets (Bld) [#/Vol] 363 10*3/uL 150-450 [facility] Potassium [Moles/volume] in Serum or PlasmaOrdered By: Eugenia Shepherd on 03-26-2023 Potassium [Moles/Vol] 5.0 mmol/L 3.5-5.1 [facility] Prothrombin time (PT)Ordered By: Eugenia Shepherd on 03-26-2023 PT Coag (PPP) [Time] 26.6 s 9.0-12.9 [facility] Comment on above: A hematocrit value g reater than 55% may lead to inaccurate results in coagulation testing. Patients having hematocrit values >55% require a special collection tube for coagulation studies. Please contact the laboratory at [phone] for redraw instructions. RBC Auto (Bld) [#/Vol]Ordere d By: Eugenia Shepherd on 03-26-2023 RBC (Bld) [#/Vol] 4.27 10*6/uL 3.60-5.00 [facility] Serum or plasma anion gap de terminationOrdered By: Eugenia Shepherd on 03-26-2023 Anion gap [Moles/Vol] 13.0 mmol/L 6.0-15.0 [facility] Sodium [Moles/volume] in Ser um or PlasmaOrdered By: Eugenia Shepherd on 03-26-2023 Sodium [Moles/Vol] 142 mmol/L 136-145 [facility] Urea nitrogen [Mass/volume] in Serum or PlasmaOrdered By: Eugenia Shepherd on 03-26-2023 Urea nitrogen [Mass/Vol] 12 mg/dL 7-25 [facility] WBC Auto (Bld) [#/Vol]Ordere d By: Eugenia Shepherd on 03-26-2023 WBC (Bld) [#/Vol] 5.9 10*3/uL 3.8-11.6 [facility] PROTIMEon 12-02-2022 INR Coag (PPP) [Relative time] 3.62 {INR} Normal [facility] Comment on above: Performed By: #### P T #### [facility] [address] [place] [address] Dr. Tg Fierro INR GUIDELINES SEE BELOW Normal [facility] Comment on above: Result Comment: LAURENCE RED INR: 2.0 - 3.0 CONDITIONS NOT LISTED BELOW 2.5 - 3.5 FOR PROSTHETIC HEART VALVE REPLACEMENT 2.5 - 3.5 RECURRENT THROMBOSIS Performed By: #### P T #### [facility] [address] [place] [address] Dr. Tg Fierro PT Coag (PPP) [Time] 35.7 s Critically high 9.0-11.6 [facility] Comment on above: Performed By: #### P T #### [facility] [address] [place] [address] Dr. Tg Fierro PROTIMEon 11-11-2022 INR Coag (PPP) [Relative time] 1.90 {INR} Normal [facility] Comment on above: Performed By: #### P T #### [facility] [address] [place] [address] Dr. Tg Fierro INR GUIDELINES SEE BELOW Normal [facility] Comment on above: Result Comment: LAURENCE RED INR: 2.0 - 3.0 CONDITIONS NOT LISTED BELOW 2.5 - 3.5 FOR PROSTHETIC HEART VALVE REPLACEMENT 2.5 - 3.5 RECURRENT THROMBOSIS Performed By: #### P T #### [facility] [address] [place] [address] Dr. Tg Fierro PT Coag (PPP) [Time] 19.4 s Critically high 9.0-11.6 [facility] Comment on above: Performed By: #### P T #### [facility] [address] [place] [address] Dr. Tg Fierro CBC AUTO DIFFon 10-25-2022 BASO # 0.0 103/ul Normal 0.0-0.1 [facility] Comment on above: Performed By: #### P T #### [facility] [address] [place] [address] Dr. Tg Fierro Basophils/100 WBC (Bld) 0.5 % Normal 0.2-2.0 [facility] Comment on above: Performed By: #### P T #### [facility] [address] [place] [address] Dr. Tg Fierro EO # 0.2 103/ul Normal 0.0-0.7 [facility] Comment on above: Performed By: #### P T #### [facility] [address] [place] [address] Dr. Tg Fierro Eosinophils/100 WBC (Bld) 2.7 % Normal 0.9-7.0 [facility] Comment on above: Performed By: #### P T #### [facility] [address] [place] [address] Dr. Tg Fierro Erythrocyte distribution width (RBC) [Ratio] 13.4 % Normal 11.0-15.0 [facility] Comment on above: Performed By: #### P T #### [facility] [address] [place] [address] Dr. Tg Fierro Hematocrit (Bld) [Volume fraction] 40.7 % Normal 36.0-48.0 [facility] Comment on above: Performed By: #### P T #### [facility] [address] [place] [address] Dr. Tg Fierro Hemoglobin (Bld) [Mass/Vol] 13.2 g/dL Normal 12.0-16.0 [facility] Comment on above: Performed By: #### P T #### [facility] [address] [place] [address] Dr. Tg Fierro IG # 0.03 10e3/ul Normal 0.00-0.03 [facility] Comment on above: Performed By: #### P T #### [facility] [address] [place] [address] Dr. Tg Fierro IG % 0.5 % Normal 0.0-0.5 [facility] Comment on above: Performed By: #### P T #### [facility] [address] [place] [address] Dr. Tg Fierro LYMPH # 2.1 103/ul Normal 1.2-3.8 [facility] Comment on above: Performed By: #### P T #### [facility] [address] [place] [address] Dr. Tg Fierro Lymphocytes/100 WBC (Bld) 34.9 % Normal 20.5-60.0 [facility] Comment on above: Performed By: #### P T #### [facility] [address] [place] [address] Dr. Tg Fierro MANUAL DIFF REQ NO Normal [facility] Comment on above: Performed By: #### P T #### [facility] [address] [place] [address] Dr. Tg Fierro MCH (RBC) [Entitic mass] 30.5 pg Normal 26.7-34.0 [facility] Comment on above: Performed By: #### P T #### [facility] [address] [place] [address] Dr. Tg Fierro MCHC (RBC) [Mass/Vol] 32.4 g/dL Normal 29.9-35.2 [facility] Comment on above: Performed By: #### P T #### [facility] [address] [place] [address] Dr. Tg Fierro MCV (RBC) [Entitic vol] 94.0 fL Normal 81.0-99.0 [facility] Comment on above: Performed By: #### P T #### [facility] [address] [place] [address] Dr. Tg Fierro MONO # 0.4 103/ul Normal 0.3-0.8 [facility] Comment on above: Performed By: #### P T #### [facility] [address] [place] [address] Dr. Tg Fierro Monocytes/100 WBC (Bld) 7.1 % Normal 1.7-12.0 [facility] Comment on above: Performed By: #### P T #### [facility] [address] [place] [address] Dr. Tg Fierro NEUT # 3.2 103/ul Normal 1.4-6.5 [facility] Comment on above: Performed By: #### P T #### [facility] [address] [place] [address] Dr. Tg Fierro Neutrophils/100 WBC (Bld) 54.3 % Normal 43.0-75.0 [facility] Comment on above: Performed By: #### P T #### [facility] [address] [place] [address] Dr. Tg Fierro Platelet mean volume (Bld) [Entitic vol] 8.7 fL Critically low 9.5-13.5 [facility] Comment on above: Performed By: #### P T #### [facility] [address] [place] [address] Dr. Tg Fierro PLT 295 103/ul Normal 150-450 [facility] Comment on above: Performed By: #### P T #### [facility] [address] [place] [address] Dr. Tg Fierro RBC 4.33 106/ul Normal 4.20-5.40 [facility] Comment on above: Performed By: #### P T #### [facility] [address] [place] [address] Dr. Tg Fierro WBC 5.9 103/ul Normal 4.0-11.0 [facility] Comment on above: Performed By: #### P T #### [facility] [address] [place] [address] Dr. Tg Fierro PROF 14(COMP METB)on 023 Albumin [Mass/Vol] 3.8 g/dL Normal 3.4-5.0 [facility] Comment on above: Performed By: #### C MP #### [facility] [address] [place] [address] Dr. Tg Fierro Albumin/Globulin [Mass ratio] 1.2 {ratio} Normal [facility] Comment on above: Performed By: #### C MP #### [facility] [address] [place] [address] Dr. Tg Fierro ALP [Catalytic activity/Vol] 49 U/L Normal 46-116 [facility] Comment on above: Performed By: #### C MP #### [facility] [address] [address] [address] Tg Fierro ALT [Catalytic activity/Vol] 21 U/L Normal 14-59 [facility] Comment on above: Performed By: #### C MP #### [facility] [address] [address] [address] Tg Fierro Anion gap [Moles/Vol] 13.3 mmol/L Normal [facility] Comment on above: Performed By: #### C MP #### [facility] [address] [address] [address] Tg Fierro AST [Catalytic activity/Vol] 14 U/L Critically low 15-37 [facility] Comment on above: Performed By: #### C MP #### [facility] [address] [address] [address] Tg Fierro Bilirubin [Mass/Vol] 0.5 mg/dL Normal 0.2-1.0 [facility] Comment on above: Performed By: #### C MP #### [facility] [address] [address] [address] Tg Fierro Calcium [Mass/Vol] 9.5 mg/dL Normal 8.5-10.1 [facility] Comment on above: Performed By: #### C MP #### [facility] [address] [address] [address] Tg Fierro Chloride [Moles/Vol] 104 mmol/L Normal 98-107 [facility] Comment on above: Performed By: #### C MP #### [facility] [address] [address] [address] Tg Fierro CO2 [Moles/Vol] 29.3 mmol/L Normal 21.0-32.0 [facility] Comment on above: Performed By: #### C MP #### [facility] [address] [address] [address] Tg Fierro Creatinine [Mass/Vol] 0.93 mg/dL Normal 0.55-1.02 [facility] Comment on above: Performed By: #### C MP #### [facility] [address] [address] [address] Tg Fierro EGFR-AF BRAZILIAN >60 Normal >=60 [facility] Comment on above: Performed By: #### C MP #### [facility] [address] [address] [address] Tg Fierro EGFR-NON AF BRAZILIAN 59 mL/min/1.73m2 Critically low >=60 [facility] Comment on above: Performed By: #### C MP #### [facility] [address] [address] [address] Tg Fierro Globulin (S) [Mass/Vol] 3.2 g/dL Normal [facility] Comment on above: Performed By: #### C MP #### [facility] [address] [address] [address] Tg Fierro Glucose [Mass/Vol] 186 mg/dL Critically high 74-106 [facility] Comment on above: Performed By: #### C MP #### [facility] [address] [address] [address] Tg Fierro Potassium [Moles/Vol] 4.6 mmol/L Normal 3.5-5.1 [facility] Comment on above: Performed By: #### C MP #### [facility] [address] [address] [address] Tg Fierro Protein [Mass/Vol] 7.0 g/dL Normal 6.4-8.2 [facility] Comment on above: Performed By: #### C MP #### [facility] [address] [address] [address] Tg Fierro Sodium [Moles/Vol] 142 mmol/L Normal 136-145 [facility] Comment on above: Performed By: #### C MP #### [facility] [address] [address] [address] Tg Fierro Urea nitrogen [Mass/Vol] 15.0 mg/dL Normal 7.0-18.0 [facility] Comment on above: Performed By: #### C MP #### [facility] [address] [place] [address] Dr. Tg Fierro Urea nitrogen/Creatinine [Mass ratio] 16.1 mg/mg Normal [facility] Comment on above: Performed By: #### C MP #### [facility] [address] [place] [address] Dr. Tg Fierro SED RATE WESTERGRENon 2022 SED RATE 9 mm/hr Normal <=30 [facility] Comment on above: Performed By: #### C MP #### [facility] [address] [place] [address] Dr. Tg Fierro PROTIMEon 10-14-2022 INR Coag (PPP) [Relative time] 1.94 {INR} Normal [facility] Comment on above: Performed By: #### P T #### [facility] [address] [place] [address] Dr. Tg Fierro INR GUIDELINES SEE BELOW Normal [facility] Comment on above: Result Comment: LAURENCE RED INR: 2.0 - 3.0 CONDITIONS NOT LISTED BELOW 2.5 - 3.5 FOR PROSTHETIC HEART VALVE REPLACEMENT 2.5 - 3.5 RECURRENT THROMBOSIS Performed By: #### P T #### [facility] [address] [place] [address] Dr. Tg Fierro PT Coag (PPP) [Time] 19.8 s Critically high 9.0-11.6 [facility] Comment on above: Performed By: #### P T #### [facility] [address] [place] [address] Dr. Tg Fierro CBC AUTO DIFFon 09-24-2022 BASO # 0.1 103/ul Normal 0.0-0.1 [facility] Comment on above: Performed By: #### P T #### [facility] [address] [place] [address] Dr. Tg Fierro Basophils/100 WBC (Bld) 0.7 % Normal 0.2-2.0 [facility] Comment on above: Performed By: #### P T #### [facility] [address] [address] [address] Tg Fierro EO # 0.3 103/ul Normal 0.0-0.7 [facility] Comment on above: Performed By: #### P T #### [facility] [address] [place] [address] Dr. Tg Fierro Eosinophils/100 WBC (Bld) 3.6 % Normal 0.9-7.0 [facility] Comment on above: Performed By: #### P T #### [facility] [address] [place] [address] Dr. Tg Fierro Erythrocyte distribution width (RBC) [Ratio] 13.4 % Normal 11.0-15.0 [facility] Comment on above: Performed By: #### P T #### [facility] [address] [place] [address] Dr. Tg Fierro Hematocrit (Bld) [Volume fraction] 38.4 % Normal 36.0-48.0 [facility] Comment on above: Performed By: #### P T #### [facility] [address] [place] [address] Dr. Tg Fierro Hemoglobin (Bld) [Mass/Vol] 12.7 g/dL Normal 12.0-16.0 [facility] Comment on above: Performed By: #### P T #### [facility] [address] [place] [address] Dr. Tg Fierro IG # 0.05 10e3/ul Critically high 0.00-0.03 [facility] Comment on above: Performed By: #### P T #### [facility] [address] [place] [address] Dr. Tg Fierro IG % 0.7 % Critically high 0.0-0.5 [facility] Comment on above: Performed By: #### P T #### [facility] [address] [place] [address] Dr. Tg Fierro LYMPH # 2.6 103/ul Normal 1.2-3.8 [facility] Comment on above: Performed By: #### P T #### [facility] [address] [place] [address] Dr. Tg Fierro Lymphocytes/100 WBC (Bld) 34.2 % Normal 20.5-60.0 [facility] Comment on above: Performed By: #### P T #### [facility] [address] [place] [address] Dr. Tg Fierro MANUAL DIFF REQ NO Normal [facility] Comment on above: Performed By: #### P T #### [facility] [address] [place] [address] Dr. Tg Fierro MCH (RBC) [Entitic mass] 31.2 pg Normal 26.7-34.0 [facility] Comment on above: Performed By: #### P T #### [facility] [address] [place] [address] Dr. Tg Fierro MCHC (RBC) [Mass/Vol] 33.1 g/dL Normal 29.9-35.2 [facility] Comment on above: Performed By: #### P T #### [facility] [address] [place] [address] Dr. Tg Fierro MCV (RBC) [Entitic vol] 94.3 fL Normal 81.0-99.0 [facility] Comment on above: Performed By: #### P T #### [facility] [address] [place] [address] Dr. Tg Fierro MONO # 0.6 103/ul Normal 0.3-0.8 [facility] Comment on above: Performed By: #### P T #### [facility] [address] [place] [address] Dr. Tg Fierro Monocytes/100 WBC (Bld) 8.1 % Normal 1.7-12.0 [facility] Comment on above: Performed By: #### P T #### [facility] [address] [place] [address] Dr. Tg Fierro NEUT # 4.1 103/ul Normal 1.4-6.5 [facility] Comment on above: Performed By: #### P T #### [facility] [address] [place] [address] Dr. Tg Fierro Neutrophils/100 WBC (Bld) 52.7 % Normal 43.0-75.0 [facility] Comment on above: Performed By: #### P T #### [facility] [address] [place] [address] Dr. Tg Fierro Platelet mean volume (Bld) [Entitic vol] 8.7 fL Critically low 9.5-13.5 [facility] Comment on above: Performed By: #### P T #### [facility] [address] [place] [address] Dr. Tg Fierro PLT 278 103/ul Normal 150-450 [facility] Comment on above: Performed By: #### P T #### [facility] [address] [place] [address] Dr. Tg Fierro RBC 4.07 106/ul Critically low 4.20-5.40 [facility] Comment on above: Performed By: #### P T #### [facility] [address] [place] [address] Dr. Tg Fierro WBC 7.7 103/ul Normal 4.0-11.0 [facility] Comment on above: Performed By: #### P T #### [facility] [address] [place] [address] Dr. Tg Fierro PROF 14(COMP METB)on 023 Albumin [Mass/Vol] 3.9 g/dL Normal 3.4-5.0 [facility] Comment on above: Performed By: #### C MP #### [facility] [address] [place] [address] Dr. Tg Fierro Albumin/Globulin [Mass ratio] 1.4 {ratio} Normal [facility] Comment on above: Performed By: #### C MP #### [facility] [address] [place] [address] Dr. Tg Fierro ALP [Catalytic activity/Vol] 59 U/L Normal 46-116 [facility] Comment on above: Performed By: #### C MP #### [facility] [address] [place] [address] Dr. Tg Fierro ALT [Catalytic activity/Vol] 21 U/L Normal 14-59 [facility] Comment on above: Performed By: #### C MP #### [facility] [address] [address] [address] Tg Fierro Anion gap [Moles/Vol] 10.8 mmol/L Normal [facility] Comment on above: Performed By: #### C MP #### [facility] [address] [address] [address] Tg Fierro AST [Catalytic activity/Vol] 9 U/L Critically low 15-37 [facility] Comment on above: Performed By: #### C MP #### [facility] [address] [address] [address] Tg Fierro Bilirubin [Mass/Vol] 0.3 mg/dL Normal 0.2-1.0 [facility] Comment on above: Performed By: #### C MP #### [facility] [address] [address] [address] Tg Fierro Calcium [Mass/Vol] 9.1 mg/dL Normal 8.5-10.1 [facility] Comment on above: Performed By: #### C MP #### [facility] [address] [address] [address] Tg Feirro Chloride [Moles/Vol] 104 mmol/L Normal 98-107 [facility] Comment on above: Performed By: #### C MP #### [facility] [address] [address] [address] Tg Fierro CO2 [Moles/Vol] 28.3 mmol/L Normal 21.0-32.0 [facility] Comment on above: Performed By: #### C MP #### [facility] [address] [address] [address] Tg Fierro Creatinine [Mass/Vol] 0.86 mg/dL Normal 0.55-1.02 [facility] Comment on above: Performed By: #### C MP #### [facility] [address] [address] [address] Tg Fierro EGFR-AF BRAZILIAN >60 Normal >=60 [facility] Comment on above: Performed By: #### C MP #### [facility] [address] [address] [address] Tg Fierro EGFR-NON AF BRAZILIAN >60 Normal >=60 [facility] Comment on above: Performed By: #### C MP #### [facility] [address] [address] [address] Tg Fierro Globulin (S) [Mass/Vol] 2.7 g/dL Normal [facility] Comment on above: Performed By: #### C MP #### [facility] [address] [address] [address] Tg Fierro Glucose [Mass/Vol] 120 mg/dL Critically high 74-106 [facility] Comment on above: Performed By: #### C MP #### [facility] [address] [address] [address] Tg Fierro Potassium [Moles/Vol] 4.1 mmol/L Normal 3.5-5.1 [facility] Comment on above: Performed By: #### C MP #### [facility] [address] [address] [address] Tg Fierro Protein [Mass/Vol] 6.6 g/dL Normal 6.4-8.2 [facility] Comment on above: Performed By: #### C MP #### [facility] [address] [address] [address] Tg Fierro Sodium [Moles/Vol] 139 mmol/L Normal 136-145 [facility] Comment on above: Performed By: #### C MP #### [facility] [address] [address] [address] Tg Fierro Urea nitrogen [Mass/Vol] 13.0 mg/dL Normal 7.0-18.0 [facility] Comment on above: Performed By: #### C MP #### [facility] [address] [address] [address] Tg Fierro Urea nitrogen/Creatinine [Mass ratio] 15.1 mg/mg Normal [facility] Comment on above: Performed By: #### C MP #### [facility] [address] [place] [address] Dr. Tg Fierro PROTIMEon 09-24-2022 INR Coag (PPP) [Relative time] 1.35 {INR} Normal [facility] Comment on above: Performed By: #### P T #### [facility] [address] [place] [address] Dr. Tg Fierro INR GUIDELINES SEE BELOW Normal [facility] Comment on above: Result Comment: LAURENCE RED INR: 2.0 - 3.0 CONDITIONS NOT LISTED BELOW 2.5 - 3.5 FOR PROSTHETIC HEART VALVE REPLACEMENT 2.5 - 3.5 RECURRENT THROMBOSIS Performed By: #### P T #### [facility] [address] [place] [address] Dr. Tg Fierro PT Coag (PPP) [Time] 14.1 s Critically high 9.0-11.6 [facility] Comment on above: Performed By: #### P T #### [facility] [address] [place] [address] Dr. Tg Fierro SED RATE [facility] 2022 SED RATE 8 mm/hr Normal <=30 [facility] Comment on above: Performed By: #### C MP #### [facility] [address] [place] [address] Dr. Tg Fierro PROTIMEon 09-09-2022 INR Coag (PPP) [Relative time] 1.23 {INR} Normal [facility] Comment on above: Performed By: #### P T #### [facility] [address] [place] [address] Dr. Tg Fierro INR GUIDELINES SEE BELOW Normal [facility] Comment on above: Result Comment: LAURENCE RED INR: 2.0 - 3.0 CONDITIONS NOT LISTED BELOW 2.5 - 3.5 FOR PROSTHETIC HEART VALVE REPLACEMENT 2.5 - 3.5 RECURRENT THROMBOSIS Performed By: #### P T #### [facility] [address] [place] [address] Dr. Tg Fierro PT Coag (PPP) [Time] 12.9 s Critically high 9.0-11.6 [facility] Comment on above: Performed By: #### P T #### [facility] [address] [address] [address] Tg Fierro ECHOCARDIO M/2D COMPLETEon 0 09-02-2022 ECHOCARDIO M/2D COMPLETE Patient: WILDA SEN Exam Date: 09/02/2022 : 1945 Gender:F Ordering : DR JAYME PEREZ . Admission #: [id number] Family : Order #: [id number] CLICK HERE TO VIEW EXAM ECHOCARDIOGRAM REPORT [...] Bender M.D. on 09/03/2022 at 17:25 Normal [facility] GLYCOHEMOGLOBIN A1Con 2022 ADA RECOMMENDATION SEE BELOW Normal [facility] Comment on above: Result Comment: ADA RECOMMENDED LIMIT 4.0 - 6.0 ADA THERAPEUTIC TARGET < 7.0 ACTION SUGGESTED > 7.0 Performed By: #### A 1C #### [facility] [address] [place] [address] Dr. Tg Fierro Glucose [Mass/Vol] 148 mg/dL Normal [facility] Comment on above: Performed By: #### A 1C #### [facility] [address] [place] [address] Dr. Tg Fierro HbA1c (Bld) [Mass fraction] 6.8 % Critically high 4.5-6.2 [facility] Comment on above: Performed By: #### A 1C #### [facility] [address] [place] [address] Dr. Tg Fierro CBC AUTO DIFFon 08-05-2022 BASO # 0.1 103/ul Normal 0.0-0.1 [facility] Comment on above: Performed By: #### C BC #### [facility] [address] [place] [address] Dr. Tg Fierro Basophils/100 WBC (Bld) 0.8 % Normal 0.2-2.0 [facility] Comment on above: Performed By: #### C BC #### [facility] [address] [place] [address] Dr. Tg Fierro EO # 0.5 103/ul Normal 0.0-0.7 [facility] Comment on above: Performed By: #### C BC #### [facility] [address] [place] [address] Dr. Tg Fierro Eosinophils/100 WBC (Bld) 7.3 % Critically high 0.9-7.0 [facility] Comment on above: Performed By: #### C BC #### [facility] [address] [place] [address] Dr. Tg Fierro Erythrocyte distribution width (RBC) [Ratio] 13.4 % Normal 11.0-15.0 [facility] Comment on above: Performed By: #### C BC #### [facility] [address] [place] [address] Dr. Tg Fierro Hematocrit (Bld) [Volume fraction] 37.1 % Normal 36.0-48.0 [facility] Comment on above: Performed By: #### C BC #### [facility] [address] [place] [address] Dr. Tg Fierro Hemoglobin (Bld) [Mass/Vol] 12.9 g/dL Normal 12.0-16.0 [facility] Comment on above: Performed By: #### C BC #### [facility] [address] [place] [address] Dr. Tg Fierro IG # 0.03 10e3/ul Normal 0.00-0.03 [facility] Comment on above: Performed By: #### C BC #### [facility] [address] [place] [address] Dr. Tg Fierro IG % 0.5 % Normal 0.0-0.5 [facility] Comment on above: Performed By: #### C BC #### [facility] [address] [place] [address] Dr. Tg Fierro LYMPH # 2.3 103/ul Normal 1.2-3.8 [facility] Comment on above: Performed By: #### C BC #### [facility] [address] [place] [address] Dr. Tg Fierro Lymphocytes/100 WBC (Bld) 34.9 % Normal 20.5-60.0 [facility] Comment on above: Performed By: #### C BC #### [facility] [address] [place] [address] Dr. Tg Fierro MANUAL DIFF REQ NO Normal [facility] Comment on above: Performed By: #### C BC #### [facility] [address] [place] [address] Dr. Tg Fierro MCH (RBC) [Entitic mass] 31.0 pg Normal 26.7-34.0 [facility] Comment on above: Performed By: #### C BC #### [facility] [address] [address] [address] Tg Fierro MCHC (RBC) [Mass/Vol] 34.8 g/dL Normal 29.9-35.2 [facility] Comment on above: Performed By: #### C BC #### [facility] [address] [address] [address] Tg Fierro MCV (RBC) [Entitic vol] 89.2 fL Normal 81.0-99.0 [facility] Comment on above: Performed By: #### C BC #### [facility] [address] [address] [address] Tg Fierro MONO # 0.4 103/ul Normal 0.3-0.8 [facility] Comment on above: Performed By: #### C BC #### [facility] [address] [place] [address] Dr. Tg Fierro Monocytes/100 WBC (Bld) 6.1 % Normal 1.7-12.0 [facility] Comment on above: Performed By: #### C BC #### [facility] [address] [place] [address] Dr. Tg Fierro NEUT # 3.3 103/ul Normal 1.4-6.5 [facility] Comment on above: Performed By: #### C BC #### [facility] [address] [address] [address] Tg Fierro Neutrophils/100 WBC (Bld) 50.4 % Normal 43.0-75.0 [facility] Comment on above: Performed By: #### C BC #### [facility] [address] [address] [address] Tg Fierro Platelet mean volume (Bld) [Entitic vol] 8.6 fL Critically low 9.5-13.5 [facility] Comment on above: Performed By: #### C BC #### [facility] [address] [address] [address] Tg Fierro PLT 336 103/ul Normal 150-450 [facility] Comment on above: Performed By: #### C BC #### [facility] [address] [address] [address] Tg Fierro RBC 4.16 106/ul Critically low 4.20-5.40 [facility] Comment on above: Performed By: #### C BC #### [facility] [address] [address] [address] Tg Fierro WBC 6.4 103/ul Normal 4.0-11.0 [facility] Comment on above: Performed By: #### C BC #### [facility] [address] [address] [address] Tg Fierro PROF 14(COMP METB)on 023 Albumin [Mass/Vol] 3.9 g/dL Normal 3.4-5.0 [facility] Comment on above: Performed By: #### P T #### [facility] [address] [place] [address] Dr. Tg Fierro Albumin/Globulin [Mass ratio] 1.3 {ratio} Normal [facility] Comment on above: Performed By: #### P T #### [facility] [address] [place] [address] Dr. Tg Fierro ALP [Catalytic activity/Vol] 60 U/L Normal 46-116 [facility] Comment on above: Performed By: #### P T #### [facility] [address] [place] [address] Dr. Tg Fierro ALT [Catalytic activity/Vol] 21 U/L Normal 14-59 [facility] Comment on above: Performed By: #### P T #### [facility] [address] [place] [address] Dr. Tg Fierro Anion gap [Moles/Vol] 15.2 mmol/L Normal [facility] Comment on above: Performed By: #### P T #### [facility] [address] [place] [address] Dr. Tg Fierro AST [Catalytic activity/Vol] 14 U/L Critically low 15-37 [facility] Comment on above: Performed By: #### P T #### [facility] [address] [address] [address] Tg Fierro Bilirubin [Mass/Vol] 0.4 mg/dL Normal 0.2-1.0 [facility] Comment on above: Performed By: #### P T #### [facility] [address] [address] [address] Tg Fierro Calcium [Mass/Vol] 9.3 mg/dL Normal 8.5-10.1 [facility] Comment on above: Performed By: #### P T #### [facility] [address] [address] [address] Tg Fierro Chloride [Moles/Vol] 102 mmol/L Normal 98-107 [facility] Comment on above: Performed By: #### P T #### [facility] [address] [place] [address] Dr. Tg Fierro CO2 [Moles/Vol] 26.8 mmol/L Normal 21.0-32.0 [facility] Comment on above: Performed By: #### P T #### [facility] [address] [place] [address] Dr. Tg Fierro Creatinine [Mass/Vol] 0.74 mg/dL Normal 0.55-1.02 [facility] Comment on above: Performed By: #### P T #### [facility] [address] [place] [address] Dr. Tg Fierro EGFR-AF BRAZILIAN >60 Normal >=60 [facility] Comment on above: Performed By: #### P T #### [facility] [address] [place] [address] Dr. Tg Fierro EGFR-NON AF BRAZILIAN >60 Normal >=60 [facility] Comment on above: Performed By: #### P T #### [facility] [address] [place] [address] Dr. Tg Fierro Globulin (S) [Mass/Vol] 3.1 g/dL Normal [facility] Comment on above: Performed By: #### P T #### [facility] [address] [place] [address] Dr. Tg Fierro Glucose [Mass/Vol] 148 mg/dL Critically high 74-106 [facility] Comment on above: Performed By: #### P T #### [facility] [address] [place] [address] Dr. Tg Fierro Potassium [Moles/Vol] 4.0 mmol/L Normal 3.5-5.1 [facility] Comment on above: Performed By: #### P T #### [facility] [address] [place] [address] Dr. Tg Fierro Protein [Mass/Vol] 7.0 g/dL Normal 6.4-8.2 [facility] Comment on above: Performed By: #### P T #### [facility] [address] [place] [address] Dr. Tg Fierro Sodium [Moles/Vol] 140 mmol/L Normal 136-145 [facility] Comment on above: Performed By: #### P T #### [facility] [address] [place] [address] Dr. Tg Fierro Urea nitrogen [Mass/Vol] 12.0 mg/dL Normal 7.0-18.0 [facility] Comment on above: Performed By: #### P T #### [facility] [address] [place] [address] Dr. Tg Fierro Urea nitrogen/Creatinine [Mass ratio] 16.2 mg/mg Normal [facility] Comment on above: Performed By: #### P T #### [facility] [address] [place] [address] Dr. Tg Fierro SED RATE WESTERGRENon 2022 SED RATE 30 mm/hr Normal <=30 [facility] Comment on above: Performed By: #### S EDR #### [facility] [address] [place] [address] Dr. Tg Fierro CBC AUTO DIFFon 04-15-2022 BASO # 0.1 103/ul Normal 0.0-0.1 [facility] Comment on above: Performed By: #### C BC #### [facility] [address] [place] [address] Dr. Tg Fierro Basophils/100 WBC (Bld) 0.6 % Normal 0.2-2.0 [facility] Comment on above: Performed By: #### C BC #### [facility] [address] [place] [address] Dr. Tg Fierro EO # 0.2 103/ul Normal 0.0-0.7 [facility] Comment on above: Performed By: #### C BC #### [facility] [address] [place] [address] Dr. Tg Fierro Eosinophils/100 WBC (Bld) 3.1 % Normal 0.9-7.0 [facility] Comment on above: Performed By: #### C BC #### [facility] [address] [place] [address] Dr. Tg Fierro Erythrocyte distribution width (RBC) [Ratio] 13.6 % Normal 11.0-15.0 [facility] Comment on above: Performed By: #### C BC #### [facility] [address] [place] [address] Dr. Tg Fierro Hematocrit (Bld) [Volume fraction] 42.3 % Normal 36.0-48.0 [facility] Comment on above: Performed By: #### C BC #### [facility] [address] [place] [address] Dr. Tg Fierro Hemoglobin (Bld) [Mass/Vol] 13.2 g/dL Normal 12.0-16.0 [facility] Comment on above: Performed By: #### C BC #### [facility] [address] [place] [address] Dr. Tg Fierro IG # 0.04 10e3/ul Critically high 0.00-0.03 [facility] Comment on above: Performed By: #### C BC #### [facility] [address] [place] [address] Dr. Tg Fierro IG % 0.5 % Normal 0.0-0.5 [facility] Comment on above: Performed By: #### C BC #### [facility] [address] [place] [address] Dr. gT Fierro LYMPH # 2.5 103/ul Normal 1.2-3.8 [facility] Comment on above: Performed By: #### C BC #### [facility] [address] [place] [address] Dr. Tg Fierro Lymphocytes/100 WBC (Bld) 31.6 % Normal 20.5-60.0 [facility] Comment on above: Performed By: #### C BC #### [facility] [address] [place] [address] Dr. Tg Fierro MANUAL DIFF REQ NO Normal [facility] Comment on above: Performed By: #### C BC #### [facility] [address] [place] [address] Dr. Tg Fierro MCH (RBC) [Entitic mass] 30.3 pg Normal 26.7-34.0 [facility] Comment on above: Performed By: #### C BC #### [facility] [address] [place] [address] Dr. Tg Fierro MCHC (RBC) [Mass/Vol] 31.2 g/dL Normal 29.9-35.2 [facility] Comment on above: Performed By: #### C BC #### [facility] [address] [place] [address] Dr. Tg Fierro MCV (RBC) [Entitic vol] 97.0 fL Normal 81.0-99.0 [facility] Comment on above: Performed By: #### C BC #### [facility] [address] [place] [address] Dr. Tg Fierro MONO # 0.5 103/ul Normal 0.3-0.8 [facility] Comment on above: Performed By: #### C BC #### [facility] [address] [place] [address] Dr. Tg Fierro Monocytes/100 WBC (Bld) 6.3 % Normal 1.7-12.0 [facility] Comment on above: Performed By: #### C BC #### [facility] [address] [place] [address] Dr. Tg Fierro NEUT # 4.5 103/ul Normal 1.4-6.5 [facility] Comment on above: Performed By: #### C BC #### [facility] [address] [place] [address] Dr. Tg Fierro Neutrophils/100 WBC (Bld) 57.9 % Normal 43.0-75.0 [facility] Comment on above: Performed By: #### C BC #### [facility] [address] [place] [address] Dr. Tg Fierro Platelet mean volume (Bld) [Entitic vol] 8.6 fL Critically low 9.5-13.5 [facility] Comment on above: Performed By: #### C BC #### [facility] [address] [place] [address] Dr. Tg Fierro PLT 295 103/ul Normal 150-450 [facility] Comment on above: Performed By: #### C BC #### [facility] [address] [place] [address] Dr. Tg Fierro RBC 4.36 106/ul Normal 4.20-5.40 [facility] Comment on above: Performed By: #### C BC #### [facility] [address] [place] [address] Dr. Tg Fierro WBC 7.8 103/ul Normal 4.0-11.0 [facility] Comment on above: Performed By: #### C BC #### [facility] [address] [place] [address] Dr. gT Fierro PROF 14(COMP METB)on 022 Albumin [Mass/Vol] 4.5 g/dL Normal 3.4-5.0 [facility] Comment on above: Performed By: #### C MP #### [facility] [address] [place] [address] Dr. Tg Fierro Albumin/Globulin [Mass ratio] 1.5 {ratio} Normal [facility] Comment on above: Performed By: #### C MP #### [facility] [address] [place] [address] Dr. Tg Fierro ALP [Catalytic activity/Vol] 62 U/L Normal 46-116 [facility] Comment on above: Performed By: #### C MP #### [facility] [address] [address] [address] Tg Fierro ALT [Catalytic activity/Vol] 25 U/L Normal 14-59 [facility] Comment on above: Performed By: #### C MP #### [facility] [address] [address] [address] Tg Fierro Anion gap [Moles/Vol] 10.6 mmol/L Normal [facility] Comment on above: Performed By: #### C MP #### [facility] [address] [address] [address] Tg Fierro AST [Catalytic activity/Vol] 12 U/L Critically low 15-37 [facility] Comment on above: Performed By: #### C MP #### [facility] [address] [address] [address] Tg Fierro Bilirubin [Mass/Vol] 0.5 mg/dL Normal 0.2-1.0 [facility] Comment on above: Performed By: #### C MP #### [facility] [address] [address] [address] Tg Fierro Calcium [Mass/Vol] 9.8 mg/dL Normal 8.5-10.1 [facility] Comment on above: Performed By: #### C MP #### [facility] [address] [address] [address] Tg Fierro Chloride [Moles/Vol] 102 mmol/L Normal 98-107 [facility] Comment on above: Performed By: #### C MP #### [facility] [address] [address] [address] Tg Fierro CO2 [Moles/Vol] 31.8 mmol/L Normal 21.0-32.0 [facility] Comment on above: Performed By: #### C MP #### [facility] [address] [address] [address] Tg Fierro Creatinine [Mass/Vol] 0.88 mg/dL Normal 0.55-1.02 [facility] Comment on above: Performed By: #### C MP #### [facility] [address] [address] [address] Tg Fierro EGFR-AF BRAZILIAN >60 Normal >=60 [facility] Comment on above: Performed By: #### C MP #### [facility] [address] [address] [address] Tg Fierro EGFR-NON AF BRAZILIAN >60 Normal >=60 [facility] Comment on above: Performed By: #### C MP #### [facility] [address] [address] [address] Tg Fierro Globulin (S) [Mass/Vol] 3.1 g/dL Normal [facility] Comment on above: Performed By: #### C MP #### [facility] [address] [place] [address] Dr. Tg Fierro Glucose [Mass/Vol] 187 mg/dL Critically high 74-106 [facility] Comment on above: Performed By: #### C MP #### [facility] [address] [address] [address] Tg Fierro Potassium [Moles/Vol] 4.4 mmol/L Normal 3.5-5.1 [facility] Comment on above: Performed By: #### C MP #### [facility] [address] [place] [address] Dr. Tg Fierro Protein [Mass/Vol] 7.6 g/dL Normal 6.4-8.2 [facility] Comment on above: Performed By: #### C MP #### [facility] [address] [place] [address] Dr. Tg Fierro Sodium [Moles/Vol] 140 mmol/L Normal 136-145 [facility] Comment on above: Performed By: #### C MP #### [facility] [address] [address] [address] Tg Fierro Urea nitrogen [Mass/Vol] 14.0 mg/dL Normal 7.0-18.0 [facility] Comment on above: Performed By: #### C MP #### [facility] [address] [address] [address] Tg Fierro Urea nitrogen/Creatinine [Mass ratio] 15.9 mg/mg Normal [facility] Comment on above: Performed By: #### C MP #### [facility] [address] [place] [address] Dr. Tg Fierro [facility] 2021 SED RATE 5 mm/hr Normal <=30 [facility] Comment on above: Performed By: #### S EDR #### [facility] [address] [place] [address] Dr. Tg Fierro CBC AUTO DIFFon 02-07-2022 BASO # 0.0 103/ul Normal 0.0-0.1 [facility] Comment on above: Performed By: #### P T #### [facility] [address] [place] [address] Dr. Tg Fierro Basophils/100 WBC (Bld) 0.6 % Normal 0.2-2.0 [facility] Comment on above: Performed By: #### P T #### [facility] [address] [place] [address] Dr. Tg Fierro EO # 0.4 103/ul Normal 0.0-0.7 [facility] Comment on above: Performed By: #### P T #### [facility] [address] [place] [address] Dr. Tg Fierro Eosinophils/100 WBC (Bld) 5.4 % Normal 0.9-7.0 [facility] Comment on above: Performed By: #### P T #### [facility] [address] [place] [address] Dr. Tg Fierro Erythrocyte distribution width (RBC) [Ratio] 13.5 % Normal 11.0-15.0 [facility] Comment on above: Performed By: #### P T #### [facility] [address] [place] [address] Dr. Tg Fierro Hematocrit (Bld) [Volume fraction] 39.4 % Normal 36.0-48.0 [facility] Comment on above: Performed By: #### P T #### [facility] [address] [place] [address] Dr. Tg Fierro Hemoglobin (Bld) [Mass/Vol] 12.8 g/dL Normal 12.0-16.0 [facility] Comment on above: Performed By: #### P T #### [facility] [address] [place] [address] Dr. Tg Fierro IG # 0.02 10e3/ul Normal 0.00-0.03 [facility] Comment on above: Performed By: #### P T #### [facility] [address] [place] [address] Dr. Tg Fierro IG % 0.3 % Normal 0.0-0.5 [facility] Comment on above: Performed By: #### P T #### [facility] [address] [place] [address] Dr. Tg Fierro LYMPH # 2.4 103/ul Normal 1.2-3.8 [facility] Comment on above: Performed By: #### P T #### [facility] [address] [place] [address] Dr. Tg Fierro Lymphocytes/100 WBC (Bld) 36.2 % Normal 20.5-60.0 [facility] Comment on above: Performed By: #### P T #### [facility] [address] [place] [address] Dr. Tg Fierro MANUAL DIFF REQ NO Normal [facility] Comment on above: Performed By: #### P T #### [facility] [address] [place] [address] Dr. Tg Fierro MCH (RBC) [Entitic mass] 31.0 pg Normal 26.7-34.0 [facility] Comment on above: Performed By: #### P T #### [facility] [address] [place] [address] Dr. Tg Fierro MCHC (RBC) [Mass/Vol] 32.5 g/dL Normal 29.9-35.2 [facility] Comment on above: Performed By: #### P T #### [facility] [address] [place] [address] Dr. Tg Fierro MCV (RBC) [Entitic vol] 95.4 fL Normal 81.0-99.0 [facility] Comment on above: Performed By: #### P T #### [facility] [address] [place] [address] Dr. Tg Fierro MONO # 0.5 103/ul Normal 0.3-0.8 [facility] Comment on above: Performed By: #### P T #### [facility] [address] [place] [address] Dr. Tg Fierro Monocytes/100 WBC (Bld) 8.0 % Normal 1.7-12.0 [facility] Comment on above: Performed By: #### P T #### [facility] [address] [place] [address] Dr. Tg Fierro NEUT # 3.3 103/ul Normal 1.4-6.5 [facility] Comment on above: Performed By: #### P T #### [facility] [address] [place] [address] Dr. Tg Fierro Neutrophils/100 WBC (Bld) 49.5 % Normal 43.0-75.0 [facility] Comment on above: Performed By: #### P T #### [facility] [address] [place] [address] Dr. Tg Fierro Platelet mean volume (Bld) [Entitic vol] 8.7 fL Critically low 9.5-13.5 [facility] Comment on above: Performed By: #### P T #### [facility] [address] [place] [address] Dr. Tg Fierro PLT 276 103/ul Normal 150-450 [facility] Comment on above: Performed By: #### P T #### [facility] [address] [place] [address] Dr. Tg Fierro RBC 4.13 106/ul Critically low 4.20-5.40 [facility] Comment on above: Performed By: #### P T #### [facility] [address] [place] [address] Dr. Tg Fierro WBC 6.7 103/ul Normal 4.0-11.0 [facility] Comment on above: Performed By: #### P T #### [facility] [address] [address] [address] Tg Fierro GLYCOHEMOGLOBIN A1Con 2021 ADA RECOMMENDATION SEE BELOW Normal [facility] Comment on above: Result Comment: ADA RECOMMENDED LIMIT 4.0 - 6.0 ADA THERAPEUTIC TARGET < 7.0 ACTION SUGGESTED > 7.0 Performed By: #### A 1C #### [facility] [address] [place] [address] Dr. Tg Fierro Glucose [Mass/Vol] 151 mg/dL Normal [facility] Comment on above: Performed By: #### A 1C #### [facility] [address] [place] [address] Dr. Tg Fierro HbA1c (Bld) [Mass fraction] 6.9 % Critically high 4.5-6.2 [facility] Comment on above: Performed By: #### A 1C #### [facility] [address] [place] [address] Dr. Tg Fierro PROF 14(COMP METB)on 022 Albumin [Mass/Vol] 3.8 g/dL Normal 3.4-5.0 [facility] Comment on above: Performed By: #### P T #### [facility] [address] [place] [address] Dr. Tg Fierro Albumin/Globulin [Mass ratio] 1.3 {ratio} Normal [facility] Comment on above: Performed By: #### P T #### [facility] [address] [place] [address] Dr. Tg Fierro ALP [Catalytic activity/Vol] 43 U/L Critically low 46-116 [facility] Comment on above: Performed By: #### P T #### [facility] [address] [place] [address] Dr. Tg iFerro ALT [Catalytic activity/Vol] 19 U/L Normal 14-59 [facility] Comment on above: Performed By: #### P T #### [facility] [address] [place] [address] Dr. Tg Fierro Anion gap [Moles/Vol] 13.7 mmol/L Normal [facility] Comment on above: Performed By: #### P T #### [facility] [address] [address] [address] Tg Fierro AST [Catalytic activity/Vol] 11 U/L Critically low 15-37 [facility] Comment on above: Performed By: #### P T #### [facility] [address] [address] [address] Tg Fierro Bilirubin [Mass/Vol] 0.4 mg/dL Normal 0.2-1.0 [facility] Comment on above: Performed By: #### P T #### [facility] [address] [address] [address] Tg Fierro Calcium [Mass/Vol] 9.1 mg/dL Normal 8.5-10.1 [facility] Comment on above: Performed By: #### P T #### [facility] [address] [address] [address] Tg Fierro Chloride [Moles/Vol] 104 mmol/L Normal 98-107 [facility] Comment on above: Performed By: #### P T #### [facility] [address] [address] [address] Tg Fierro CO2 [Moles/Vol] 28.5 mmol/L Normal 21.0-32.0 [facility] Comment on above: Performed By: #### P T #### [facility] [address] [address] [address] Tg Fierro Creatinine [Mass/Vol] 0.77 mg/dL Normal 0.55-1.02 [facility] Comment on above: Performed By: #### P T #### [facility] [address] [address] [address] Tg Fierro EGFR-AF BRAZILIAN >60 Normal >=60 [facility] Comment on above: Performed By: #### P T #### [facility] [address] [address] [address] Tg Fierro EGFR-NON AF BRAZILIAN >60 Normal >=60 [facility] Comment on above: Performed By: #### P T #### [facility] [address] [address] [address] Tg Fierro Globulin (S) [Mass/Vol] 3.0 g/dL Normal [facility] Comment on above: Performed By: #### P T #### [facility] [address] [address] [address] Fierro Glucose [Mass/Vol] 124 mg/dL Critically high 74-106 [facility] Comment on above: Performed By: #### P T #### [facility] [address] [address] [address] Tg Fierro Potassium [Moles/Vol] 4.2 mmol/L Normal 3.5-5.1 [facility] Comment on above: Performed By: #### P T #### [facility] [address] [address] [address] Tg Fierro Protein [Mass/Vol] 6.8 g/dL Normal 6.4-8.2 [facility] Comment on above: Performed By: #### P T #### [facility] [address] [address] [address] Tg Fierro Sodium [Moles/Vol] 142 mmol/L Normal 136-145 [facility] Comment on above: Performed By: #### P T #### [facility] [address] [address] [address] Tg Fierro Urea nitrogen [Mass/Vol] 12.0 mg/dL Normal 7.0-18.0 [facility] Comment on above: Performed By: #### P T #### [facility] [address] [address] [address] Fierro Urea nitrogen/Creatinine [Mass ratio] 15.6 mg/mg Normal [facility] Comment on above: Performed By: #### P T #### [facility] [address] [address] [address] Tg Fierro SED RATE [facility] 2021 SED RATE 8 mm/hr Normal <=30 [facility] Comment on above: Performed By: #### C MP #### [facility] [address] [address] [address] MCKEON [facility] 2020 Result Positive [employer] Other Vital Signs Date Time Vital Sign Value Performing Clinician Facility 02-14-2025 15:00-0400 Diastolic blood pressure 65 mm[Hg] Jayme Perez MD Work Phone: [facility] 02-14-2025 15:00-0400 Heart rate 81 /min Jayme Perez MD Work Phone: [facility] 02-14-2025 15:00-0400 Respiratory rate 16 /min Jayme Perez MD Work Phone: [facility] 02-14-2025 15:00-0400 SaO2% (BldA) [Mass fraction] 98 % Jayme Perez MD Work Phone: [facility] 02-14-2025 15:00-0400 Systolic blood pressure 116 mm[Hg] Jayme Perze MD Work Phone: [facility] 02-14-2025 13:03-0400 Body height 160.02 cm Jayme Perez MD Work Phone: [facility] 02-14-2025 13:03-0400 Body temperature 98 [degF] Jayme Perez MD Work Phone: [facility] 02-14-2025 13:03-0400 Body weight 51.34 kg Jayme Perez MD Work Phone: [facility] 01-06-2025 11:39-0400 Body height 160 cm Jayme Perez MD Work Phone: [facility] 01-06-2025 11:39-0400 Body mass index (BMI) [Ratio] 22.5 kg/m2 Jayme Perez MD Work Phone: [facility] 01-06-2025 11:39-0400 Body weight 57.61 kg Jayme Perez MD Work Phone: [facility] 12-22-2024 11:35-0400 Body height 160 cm Jayme Perez MD Work Phone: [facility] 12-22-2024 11:35-0400 Body mass index (BMI) [Ratio] 22.5 kg/m2 Jayme Perez MD Work Phone: [facility] 12-22-2024 11:35-0400 Body weight 57.61 kg Jayme Perez MD Work Phone: [facility] 11-04-2024 13:54-0400 Body height 160 cm Jayme Perez MD Work Phone: [facility] 11-04-2024 13:54-0400 Body mass index (BMI) [Ratio] 22.5 kg/m2 Jayme Perez MD Work Phone: [facility] 11-04-2024 13:54-0400 Body weight 57.61 kg Jayme Perez MD Work Phone: [facility] 11-04-2024 13:54-0400 Diastolic blood pressure 76 mm[Hg] Jayme Perez MD Work Phone: [facility] 11-04-2024 13:54-0400 Heart rate 100 /min Jayme Perez MD Work Phone: [facility] 11-04-2024 13:54-0400 SaO2% (BldA) [Mass fraction] 99 % Jayme Perez MD Work Phone: [facility] 11-04-2024 13:54-0400 Systolic blood pressure 122 mm[Hg] Jayme Perez MD Work Phone: [facility] 07-12-2024 11:03-0500 Diastolic blood pressure 66 mm[Hg] Eugenia SHEPHERD [facility] 07-12-2024 11:03-0500 Heart rate 77 /min Eugenia SHEPHERD [facility] 07-12-2024 11:03-0500 Systolic blood pressure 131 mm[Hg] Eugenia SHEPHERD [facility] 04-15-2024 14:16-0400 Body height 160 cm Jayme Perez MD Work Phone: [facility] 04-15-2024 14:16-0400 Body mass index (BMI) [Ratio] 21.79 kg/m2 Jayme Perez MD Work Phone: [facility] 04-15-2024 14:16-0400 Body weight 55.79 kg Jayme Perez MD Work Phone: [facility] 04-15-2024 14:16-0400 Diastolic blood pressure 70 mm[Hg] Jayme Perez MD Work Phone: [facility] 04-15-2024 14:16-0400 Heart rate 87 /min Jayme Perez MD Work Phone: [facility] 04-15-2024 14:16-0400 SaO2% (BldA) [Mass fraction] 98 % Jayme Perez MD Work Phone: [facility] 04-15-2024 14:16-0400 Systolic blood pressure 120 mm[Hg] Jayme Perez MD Work Phone: [facility] 10-14-2023 09:09-0400 Body temperature 98.6 [degF] Eugenia SHEPHERD [facility] 10-14-2023 09:09-0400 Diastolic blood pressure 61 mm[Hg] Eugenia SHEPHERD [facility] 10-14-2023 09:09-0400 Heart rate 80 /min Eugenia SHEPHERD [facility] 10-14-2023 09:09-0400 Respiratory rate 16 /min Eugenia SHEPHERD [facility] 10-14-2023 09:09-0400 Systolic blood pressure 115 mm[Hg] Eugenia SHEPHERD [facility] 08-13-2023 10:47-0500 Blood Pressure Location Renato SANTACRUZ [facility] 08-13-2023 10:47-0500 Diastolic blood pressure 62 mm[Hg] Renato SANTACRUZ [facility] 08-13-2023 10:47-0500 Heart rate 82 /min Renato SANTACRUZ [facility] 08-13-2023 10:47-0500 Respiratory rate 16 /min Renato SANTACRUZ [facility] 08-13-2023 10:47-0500 Systolic blood pressure 105 mm[Hg] Renato SANTACRUZ [facility] 08-07-2023 09:48-0500 Body height 160 cm Jayme Perez MD Work Phone: [facility] 08-07-2023 09:48-0500 Body mass index (BMI) [Ratio] 24.45 kg/m2 Jayme Perez MD Work Phone: [facility] 08-07-2023 09:48-0500 Body weight 62.6 kg Jayme Perez MD Work Phone: [facility] 08-07-2023 09:48-0500 Heart rate 57 /min Jayme Perez MD Work Phone: [facility] 08-07-2023 09:48-0500 SaO2% (BldA) [Mass fraction] 98 % Jayme Perez MD Work Phone: [facility] 07-25-2023 09:20-0500 Body height 160.02 cm Lou Glover Other [facility] Other 07-25-2023 09:20-0500 Body mass index (BMI) [Ratio] 23.91 kg/m2 Lou Glover Other [facility] Other 07-25-2023 09:20-0500 Body temperature 97.7 [degF] Lou Glover Other [facility] Other 07-25-2023 09:20-0500 Body weight 61.24 kg Lou Glover Other [facility] Other 07-25-2023 09:20-0500 Diastolic blood pressure 74 mm[Hg] Lou Glover Other [facility] Other 07-25-2023 09:20-0500 Respiratory rate 18 /min Lou Glover Other [facility] Other 07-25-2023 09:20-0500 SaO2% (BldA) [Mass fraction] 96 % Lou Glover Other [facility] Other 07-25-2023 09:20-0500 Systolic blood pressure 120 mm[Hg] Lou Glover Other [facility] Other 03-26-2023 13:15-0400 Body height 160.02 cm MD Jayme Perez Work Phone: [facility] 03-26-2023 13:15-0400 Body temperature 98.2 [degF] MD Jayme Perez Work Phone: [facility] 03-26-2023 13:15-0400 Body weight 66 kg MD Jayme Perez Work Phone: [facility] 03-26-2023 13:15-0400 Diastolic blood pressure 71 mm[Hg] MD Jayme Perez Work Phone: [facility] 03-26-2023 13:15-0400 Heart rate 87 /min MD Jayme Perez Work Phone: [facility] 03-26-2023 13:15-0400 Respiratory rate 16 /min MD Jayme Perez Work Phone: [facility] 03-26-2023 13:15-0400 SaO2% (BldA) [Mass fraction] 97 % MD Jayme Perez Work Phone: [facility] 03-26-2023 13:15-0400 Systolic blood pressure 117 mm[Hg] MD Jayme Perez Work Phone: [facility] 05-21-2021 13:15-0500 Body height 160.02 cm Astrid Baker Other [employer] Other 05-21-2021 13:15-0500 Body mass index (BMI) [Ratio] 23.91 kg/m2 Astrid Baker Other [facility] Other 05-21-2021 13:15-0500 Body temperature 97.3 [degF] Astrid Baker Other [facility] Other 05-21-2021 13:15-0500 Body weight 61.24 kg Astrid Baker Other [facility] Other 05-21-2021 13:15-0500 SaO2% (BldA) [Mass fraction] 94 % Astrid Baker Other [facility] Other Encounters Encounter Date Encounter Type Care Provider Facility Start: 03-08-2025 End: 03-08-2025 Clinisync Result Encounter Jayme Perez MD Work Phone: [facility] Unsolicited Start: 03-08-2025 End: 03-08-2025 Clinisync Result Encounter Jayme Perez MD Work Phone: [facility] Unsolicited Start: 02-14-2025 End: 02-14-2025 Admission to same day surgery center Eugenia Venegas MD -Surgery [facility] Start: 02-14-2025 End: 02-14-2025 ambulatory Jayme Perez MD Work Phone: [facility] Work Phone: Start: 02-14-2025 End: 02-14-2025 ambulatory Eugenia SHEPHERD Facility::[id number] Start: 02-11-2025 End: 02-11-2025 Patient encounter procedure Kristie Hermosillo CLINICAL INFORMATICS MANAGER-BC -[facility] Work Phone: Start: 02-11-2025 End: 02-11-2025 ambulatory Jayme Perez MD Work Phone: [facility] Work Phone: Start: 02-08-2025 End: 02-08-2025 Telephone [...] Unsolicited Start: 02-04-2025 End: 02-04-2025 ambulatory Lobito Mejias Reg[facility] Work Phone: Start: 02-04-2025 End: 02-04-2025 Departed Referred Lobito Mejias DO -[facility] [place] [facility] Start: 02-02-2025 End: 02-02-2025 [...] Start: 01-31-2025 End: 01-31-2025 ambulatory Eugenia SHEPHERD Facility:[id number] Start: 01-21-2025 End: 01-21-2025 Clinisync Result [...] 01-05-2025 End: 01-05-2025 Bamboo flowsheet Clara Kelbley COLLEGE ASSOCIATE [facility] Start: 01-05-2025 End: 01-05-2025 Bamboo flowsheet Clara Kelbley COLLEGE ASSOCIATE [facility] Start: 01-05-2025 End: 01-05-2025 ambulatory Clara Kelbley COLLEGE ASSOCIATE [facility] Comment on above: Vertigo (Primary Dx) Start: 12-31-2024 End: 12-31-2024 Bamboo flowsheet Clara Kelbley COLLEGE ASSOCIATE [facility] Start: 12-31-2024 End: 12-31-2024 Bamboo flowsheet Clara Kelbley COLLEGE ASSOCIATE [facility] Start: 12-31-2024 End: 12-31-2024 ambulatory Clara Kelbley COLLEGE ASSOCIATE [facility] Comment on above: Vertigo (Primary Dx) Start: 12-29-2024 End: 12-29-2024 Bamboo flowsheet Clara Kelbley COLLEGE ASSOCIATE [facility] Start: 12-29-2024 End: 12-29-2024 Bamboo flowsheet Clara Kelbley COLLEGE ASSOCIATE [facility] Start: 12-29-2024 End: 12-29-2024 ambulatory Clara Kelbley COLLEGE ASSOCIATE [facility] Comment on above: Vertigo [...] (Primary Dx) ; 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 (HCC); detention current use of anticoagulant; Medication monitoring encounter [...] for; Iron deficiency; Chronic diastolic heart failure (CMS/HCC); 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 ([facility]/HCC); Stage 3a chronic kidney disease (HCC) ([facility]); Age-related osteoporosis without current pathological fracture ([facility]); Psoriatic arthropathy ([facility]); Type 2 diabetes mellitus with stage 3a chronic kidney disease, without long-term current use of insulin ([facility]) ([facility]); Type 2 diabetes mellitus with diabetic microalbuminuria, without long-term current use of insulin ([facility]); Immunosuppressed status ([facility]) Start: 11-04-2024 End: 11-04-2024 ambulatory JAYME PEREZ [...] microalbuminuria, without long-term current use of insulin ([facility]) (Primary Dx) Start: 10-25-2024 End: 10-25-2024 Clinisync [...] without long-term current use of insulin (HCC) ([facility]/HCC); Stage 3a chronic kidney disease (HCC) ([facility]/HCC); Microalbuminuria; 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 ([facility]); terminal carman current use of anticoagulant Start: 10-21-2024 End: 10-21-2024 ambulatory JAYME PEREZ Not Available Start: 10-18-2024 End: 10-18-2024 Clinisync Result Encounter Generic External Data Provider [facility] Unsolicited Start: 10-18-2024 End: 10-18-2024 Clinisync Result Encounter Generic External Data Provider [facility] Unsolicited Start: 10-16-2024 End: 10-16-2024 Refill Jayme Perez MD Work Phone: [facility] Comment on above: Paroxysmal atrial fi brillation ([facility]) Start: 10-09-2024 End: 10-11-2024 Refill Jayme Perez MD Work Phone: [facility] Comment on above: Type 2 diabetes nancie itus with stage 3a chronic kidney disease, without long-term current use of insulin (HCC) ([facility]/HCC) Start: 09-27-2024 End: 09-27-2024 Clinisync Result Encounter [...] Start: 07-12-2024 End: 07-12-2024 ambulatory Eugenia SHEPHERD Facility:[facility] Start: 07-12-2024 End: 07-12-2024 Patient encounter procedure Eugenia SHEPHERD [facility] Start: 07-01-2024 End: 07-01-2024 Clinisync Result [...] Paroxysmal atrial fi brillation (CMS/HCC) (Primary Dx); terminal carman current use of anticoagulant; Type 2 diabetes [...] encounter procedure MD Jayme Perez Work Phone: [facility] [address] Work Phone: Start: 03-31-2024 End: 03-31-2024 ambulatory MD Jayme Perez Work Phone: [facility] Work Phone: Start: 03-29-2024 End: 03-29-2024 Clinisync Result Encounter Generic External Data Provider [facility] Unsolicited Start: 03-29-2024 End: 03-29-2024 Clinisync Result Encounter Generic External Data Provider [facility] Unsolicited Start: 03-25-2024 End: 03-25-2024 Refill Jayme Perez MD Work Phone: [facility] Comment on above: Type 2 diabetes nancie itus with stage 3a chronic kidney disease, without long-term current use of insulin (HCC) ([facility]/HCC) Start: 03-17-2024 End: 03-17-2024 Clinisync Result Encounter Jayme Perez MD Work Phone: [facility] Unsolicited Start: 03-17-2024 End: 03-17-2024 Clinisync Result Encounter Jayme Perez MD Work Phone: [facility] Unsolicited Start: 10-14-2023 End: 10-14-2023 Patient encounter procedure Eugenia SHEPHERD [facility] Start: 08-20-2023 Clinisync Result Encounter Generic External Data Provider [facility] Unsolicited Start: 08-20-2023 Clinisync Result Encounter Generic External Data Provider [facility] Unsolicited Start: 08-13-2023 End: 08-13-2023 Patient encounter procedure Renato Arzola ANGELITO [facility] Start: 08-07-2023 End: 08-07-2023 Office [...] (CMS/HCC); Microalbuminuria; Former smoker; 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, adult; detention current use of anticoagulant; Psoriatic arthropathy (CMS/HCC); Gastroesophageal reflux disease without esophagitis Start: 07-25-2023 End: 07-25-2023 ambulatory Lou Glover Other [facility] Other Start: 07-25-2023 Office outpatient vi sit 25 minutes Lou Glover [facility] [place] Start: 04-07-2023 End: 04-07-2023 ambulatory MD Jayme Perez Work Phone: [facility] Work Phone: Start: 04-07-2023 End: 04-07-2023 Departed Referred MD Jayme Perez Work Phone: [facility] [place] Start: 03-26-2023 End: 03-26-2023 Patient encounter procedure MD Jayme Perez Work Phone: [facility] Work Phone: Start: 03-20-2023 End: 03-20-2023 Lab Drop off Eugenia SHEPHERD [facility] Start: 03-20-2023 End: 03-20-2023 Patient encounter procedure Eugenia SHEPHERD [facility] Start: 11-11-2022 End: 12-11-2022 ambulatory [...] 05-21-2021 End: 05-21-2021 ambulatory Astrid Baker Other [facility] Other Start: 05-21-2021 Office outpatient vi sit 15 minutes Astrid Baker [facility] Procedures Date Procedure Procedure Detail Performing Clinician Start: 03-08-2025 [facility] PROTHROMBIN T RAMIRO INR W/O COUM Jayme Perez MD Work Phone: Start: 02-14-2025 Cystoscopy Jayme marroquin MD Work Phone: Start: 02-14-2025 Supine abdominal X-ray Jayme Perez MD Work Phone: Start: 02-04-2025 Urine culture Jayme camargo MD Work Phone: Start: 02-04-2025 URINE CULTURE - [facility] Ge neric External Data Provider Start: 02-02-2025 [...] DIFF Generic External Data Provider Start: 11-02-2024 [facility] MICROALB CREAT R ATIO RANDOM Jayme Perez [...] External Data Provider Start: 08-14-2023 Lithotripsy Eugenia CHRISTIANSEN Start: 08-26-2019 Extracorporeal shock wave lithotripsy of calculus of kidney Eugenia SHEPHERD Start: 04-12-2016 Cystoscopic laser lithotripsy of ureteric calculus Eugenia SHEPHERD Start: 03-28-2016 Cystoscopic removal of ureteric stent Eugenia SHEPHERD Start: 02-15-2016 Extracorporeal shock wave lithotripsy of calculus of kidney Eugenia SHEPHERD Start: 01-16-2016 Endoscopic retrograd e pyelogram Eugenia SHEPHERD Start: 06-29-2013 Extracorporeal shock wave lithotripsy of calculus of kidney Eugenia SHEPHERD Start: 09-10-2010 Cystoscopic removal of ureteric stent Eugenia SHEPHERD Start: 08-29-2010 Extracorporeal shock wave lithotripsy of calculus of kidney Eugenia SHEPHERD Start: 08-23-2010 Cystoscopic insertio n of ureteric stent Eugenia SHEPHERD Start: 03-02-2008 Endoscopic retrograd e pyelogram Eugenia SHEPHERD Start: 10-16-2004 Cystoscopic anastomo sis of ureter to bladder with insertion of stent into ureter Eugenia SHEPHERD Abdominal hysterectomy Bhavesh resendiz [employer] Appendectomy Renato [employer] Extraction of cataract Radhari astrid [employer] Partial lobectomy of lung Pa gamal SANTACRUZ Tonsillectomy Renato [employer] Plan of Treatment Date Care Activity Detail Author Start: 08-04-2026 Glaucoma screening Diabetes: Retinopathy Screening [facility] Start: 12-30-2025 Glaucoma screening Diabetes: Retinopathy Screening [facility] Start: 11-02-2025 Urine screening for protein Diabetes: Urine Protein Screening [facility] Start: 09-13-2025 Pneumococcal Vaccine: 65+ Years (1 of 2 - PCV) Pneumococcal Vaccine: 65+ Years (1 of 2 - PCV) [facility] Comment on above: Postponed from 1952 (Patient Refus ed) Postponed from 04/06 (Patient Refused) Start: 05-19-2025 Glaucoma screening Diabetes: Retinopathy Screening [facility] Start: 04-19-2025 Hemoglobin A1c measurement Diabetes: Hemoglobin A1C [facility] Start: 03-27-2025 End: 10-25-2025 Hemoglobin A1c/Hemoglobin.total in Blood Hemoglobin A1c Lab Routine Type 2 diabetes mellitus with stage 3a chronic kidney disease, without long-term current use of insulin ([facility]) ([facility]) Expected: 03/27/2025 (Approximate), Expires: 10/25/2025 [facility] Comment on above: Expected: 03/27/2025 (Approximate), Expi res: 10/25/2025 Start: 03-14-2025 Influenza vaccination [facility] Start: 02-14-2025 [facility] Start: 02-14-2025 [facility] Start: 02-14-2025 Supine abdominal X-ray [facility] Start: 02-14-2025 [facility] Start: 02-08-2025 End: 02-08-2025 Patient encounter procedure 02/08/2025 10:30 AM EDT Office Visit [facility] [address] [place] [address] Jayme Perez MD [address] [place] [address] [facility] Start: 02-04-2025 Bacteria identified in Urine by Culture Urine Culture [facility] Start: 02-04-2025 Urine culture [facility] Start: 02-02-2025 End: 02-02-2025 Patient encounter procedure 02/02/2025 1:30 PM EDT Office Visit [facility] [address] [place] [id number] Felicia Farmer DO [address] [place] [address] [facility] Start: 01-10-2025 Influenza vaccination Influenza Vaccine (#1) [facility] Comment on above: Postponed from 03/14/2024 (Patient Refus ed) Start: 01-10-2025 End: 01-10-2025 ambulatory 01/10/2025 11:00 AM EDT Treatment [facility] [address] [place] [address] Joselyn Narvaez, PT [facility] Start: 01-07-2025 End: 01-07-2025 ambulatory 01/07/2025 12:00 PM EDT Treatment [facility] [address] [facility] [address] [place] [id number] Clara Whitten, COLLEGE ASSOCIATE [facility] Start: 01-05-2025 End: 01-05-2025 ambulatory [facility] Comment on above: Arrived Start: 12-31-2024 End: 12-31-2024 ambulatory [facility] Comment on above: Vertigo (Primary Dx) Start: 12-29-2024 End: 12-29-2024 ambulatory [facility] Comment on above: Arrived Start: 12-23-2024 End: 12-23-2024 ambulatory 12/23/2024 12:30 PM EDT Evaluation [facility] [address] [place] [address] Joselyn Narvaez, PT Vertigo (Primary Dx) [facility] Comment on above: Vertigo (Primary Dx) Start: 12-22-2024 End: 12-22-2024 Patient encounter procedure 12/22/2024 11:45 AM EDT Office Visit [facility] [address] [place] [address] Jayme Perez MD [address] [place] [address] (Fax) Arrived [facility] Comment on [...] 3a chronic kidney disease (HCC) (CMS/HCC) Microalbuminuria Expected: 10/25/2024 (Approximate), Expires: 10/25/2025 [facility] Work Phone: Comment on above: Expected: 10/25/2024 (Approximate), Expi res: 10/25/2025 Start: 10-21-2024 End: 10-21-2024 Patient encounter procedure [facility] Comment on above: Type 2 diabetes mellitus with stage 3a c hronic kidney disease, without long-term current use of insulin (HCC) (CMS/HCC); Stage 3a chronic kidney disease (HCC) (CMS/HCC); Microalbuminuria; 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 (CMS/HCC); detention current use of anticoagulant Start: 10-14-2024 End: 04-15-2025 T3, reverse T3, reverse Lab Routine Chronic fatigue Expected: 10/14/2024 (Approximate), Expires: 04/15/2025 [facility] Comment on above: Expected: 10/14/2024 (Approximate), Expi res: 04/15/2025 Start: 10-14-2024 End: 04-15-2025 Thyrotropin [Units/volume] in Serum or Plasma TSH Lab Routine Chronic fatigue Expected: 10/14/2024 (Approximate), Expires: 04/15/2025 [facility] Comment on above: Expected: 10/14/2024 (Approximate), Expi res: 04/15/2025 Start: 10-14-2024 End: 04-15-2025 Thyroxine (T4) free [Mass/volume] in Serum or Plasma T4, free Lab Routine Chronic fatigue Expected: 10/14/2024 (Approximate), Expires: 04/15/2025 [facility] Comment on above: Expected: 10/14/2024 (Approximate), Expi [...] Healthcare Comment on above: Expected: 10/14/2024 (Approximate), Expi res: 04/15/2025 Start: 08-04-2024 End: 08-04-2024 Patient encounter procedure [facility] Comment on above: Arrived Start: 05-22-2024 Medicare Annual Wellness (AWV) Medicare Annual Wellness (AWV) [facility] Start: 04-15-2024 End: 04-15-2024 Patient encounter procedure 04/15/2024 2:30 PM EDT Office Visit [facility] [address] [id number] Jayme Perez MD [address] [place] [address] (Fax) [facility] Start: 03-14-2024 Influenza vaccination Influenza Vaccine (#1) [facility] Start: 10-26-2023 Urine screening for protein Diabetes: Urine Protein Screening [facility] Start: 09-01-2023 End: 09-01-2023 Patient encounter procedure 09/01/2023 10:30 AM EST Office Visit [facility] [address] [place], [place] [id number] Felicia Farmer DO [address] [place] [address] [facility] NB OPHT Start: 05-06-2023 Hemoglobin A1c measurement Diabetes: Hemoglobin A1C [facility] Start: 04-07-2023 Abdomen endoscopy OR Cysto/Retro/Stent/Stone/H olmium Laser (Right) [facility] Start: 03-14-2023 Influenza vaccination Influenza Vaccine (#1) [facility] Start: 09-12-2020 Urine screening for protein Diabetes: Urine Protein Screening [facility] Start: 1951 Pneumococcal Vaccine: 65+ Years (1 - PCV) Pneumococcal Vaccine: 65+ Years (1 - PCV) [facility] Start: 1951 Pneumococcal Vaccine: 65+ Years (1 of 2 - PCV) Pneumococcal Vaccine: 65+ Years (1 of 2 - PCV) [facility] Start: 1947 Skin Cancer Screening Skin Cancer Screening [facility] Bilirubin measurement [facility] BLOOD CULTURE 1 BLOOD CULTURE 1 Lab Routine 01/31/2025 9:50 AM EDT [facility] BLOOD CULTURE 2 BLOOD CULTURE 2 Lab Routine 01/31/2025 9:56 AM EDT [facility] Body weight [facility] Calcium carbonate/To sayda in Stone [facility] Calcium hydrogen phosphate dihydrate/Total in Stone [facility] Calcium oxalate monohydrate/Total in Stone [facility] Calcium phosphate level [facility] Calculus analysis wi th calculus photography [Interpretation] in [facility] Calculus analysis, qualitative [facility] Calculus analysis, quantitative [facility] Calculus analysis, quantitative, infrared spectroscopy [facility] Cellular material [Mass/mass] of Stone by Estimated [facility] Cholesterol [Mass/vo lume] in Serum or Plasma [facility] Cystine measurement [facility] Determination of jeremie culus chemical composition [facility] Evaluation procedure [facility] Hydroxyapatite [Ener gy Difference] in 24 hour Urine [facility] Laboratory data interpretation [facility] Newberyite/Total in Stone [facility] Patient Education Know your Meds [facility] Work Phone: Patient referral [facility] Work Phone: Specimen source subj ect [Type] [facility] Triamterene measurement [facility] Triple phosphate/Tot al in Stone [facility] URINE CULTURE - [facility] URINE CULTU RE - [facility] Lab Routine 02/04/2025 1:19 PM EDT [facility] Immunizations Immunization Date Immunization Notes Care Provider Yaya oswald NEGATED: Highlighted row has not occurred!08-13-2023 influenza virus vaccine, unspecified formulation Renato SANTACRUZ [facility] NEGATED: Highlighted row has not occurred!08-13-2023 SARS-CoV-2 mRNA (tozinameran 5y-11y) vaccine Renato SANTACRUZ [facility] NEGATED: Highlighted row has not occurred!09-21-2019 influenza virus vaccine, live, attenuated, for intranasal use [email or web address] NEGATED: Highlighted row has not occurred!08-20-2019 influenza virus vaccine, live, attenuated, for intranasal use [email or web address] Payers Date Payer Category Payer Self-pay [id number] 2023 Private Health Insurance [id number] 2023 Medicare [id number] 2022 Unknown [employer] [id number] 2022-Present [address] [address] [place] [address] [id number] .[id number] 2002 Medicare [id number]. 1.13.693 .[id number] 1959 Medicare [id number] 2.16.840.1.280459.19 1959 Unknown [id number] 1946 Unknown [id number] 2.16.840.1.800911.3.579 .2.593 1946 Unknown [id number] 2.16.840.1.131252.3.579 .2.593 1946 Unknown [id number] 2.16.840.1.664672.3.579 .2.593 1946 Unknown [id number] 2.16.840.1.385199.3.579 .2.593 1946 Unknown [id number] 2.16.840.1.171943.3.579 .2.593 1946 Unknown [id number] 2.16.840.1.993591.3.579 .2.593 1946 Unknown [id number] 2.16.840.1.722117.3.579 .2.593 1946 Unknown [id number] 2.16.840.1.849568.3.579 .2.593 1946 Unknown [id number] 2.16.840.1.848801.3.579 .2.593 1946 Unknown [id number] 2.16.840.1.798202.3.579 .2.593 1946 Unknown [id number] 2.16.840.1.965743.3.579 .2.593 1946 Unknown [id number] 2.16.840.1.194122.3.579 .2.593 1946 Unknown [id number] 2.16.840.1.018655.3.579 .2.593 1946 Unknown [id number] 2.16.840.1.019531.3.579 .2.1259 1946 Unknown [id number] 2.16.840.1.983400.3.579 .2.1258 1946 Unknown [id number] 2.16.840.1.185999.3.579 .2.1258 1946 Unknown [id number] 2.16.840.1.514705.3.579 .2.1258 1946 Unknown [id number] 2.16.840.1.341651.3.579 .2.1258 1946 Unknown [id number] 2.16.840.1.634431.3.579 .2.1258 1946 Unknown [id number] 2.16.840.1.988168.3.579 .2.1258 1946 Unknown [id number] 2.16.840.1.482922.3.579 .2.1258 1946 Unknown [id number] 2.16.840.1.284420.3.579 .2.1258 1946 Unknown [id number] 2.16.840.1.550758.3.579 .2.1258 1946 Unknown [id number] 2.16.840.1.425757.3.579 .2.1258 1946 Unknown [id number] 2.16.840.1.840188.3.579 .2.1258 1946 Unknown [id number] 2.16.840.1.824085.3.579 .2.727 1946 Unknown [id number] 2.16.840.1.686933.3.579 .2.727 1946 Unknown [id number] 2.16.840.1.943863.3.579 .2.727 Unknown [id number] 2.16.840.1.663289.3.579 .2.531 Unknown [id number] 2.16.840.1.817973.3.579 .2.531 Unknown [id number] 2.16.840.1.363854.3.579 .2.531 Unknown [id number] 2.16.840.1.517016.3.579 .2.531 Social History Date Type Detail Facility Sex Assigned At [employer] Other Start: 02-03-2023 End: 04-15-2024 Tobacco smoking status Ex-smoker (finding) [facility] Tobacco smoking status Never [facility] Start: 12-11-2022 End: 04-08-2024 Sex Assigned At Female [facility] Start: 1945 Sex Assigned At Female F [facility] End: 07-14-1986 History of tobacco use Current smoker [facility] End: 07-14-1986 History of tobacco use Cigarette Smoker [facility] Start: 08-07-2023 End: 04-15-2024 Tobacco use and exposure Smokeless tobacco non-user [facility] Start: 08-07-2023 End: 02-14-2025 Alcohol intake Ex-drinker (finding) [facility] Start: [...] - these days [OSQ] Not at all [facility] Sex Female (finding) [facility] Goals Date Patient Goal Desired Activity /State Functional Status Date Assessment Result Facility 11-04-2024 Patient Health Quest ionnaire 2 item (PHQ-2) [Reported] [facility] 10-25-2024 Patient Health Quest ionnaire 2 item (PHQ-2) [Reported] [facility] 07-12-2024 Functional Status N/A [facility] 10-14-2023 Functional Status N/A [facility] 08-13-2023 Functional Status N/A [facility] Clinical Notes 02-21-2022 to 02-08-2025 Telephone Encounter - Magalis Harris MA - 02/08/2025 12:30 PM EDTTelephone Encounter - Magalis Harris MA - 02/08/2025 12:29 PM Suad Perez MD - 02/08/2025 10:30 AM EDT Note Date & Type Note Facility 02-08-2025 Telephone encount er Note Copied from from pt: Rafael, this is Jocelyn Sen, [id number]. I forgot to ask Dr. Persaud when I should start taking my warfare again and he's going to be off for a while, so I thought I'd better try and find out now. [phone], thank you. [facility] 02-08-2025 Telephone encount er Note Copied from : The is the [facility] pharmacy calling concerning the prescriptions for Wilda Sen birthday [id number] have a prescription for Roberto F on [...] as well. Thank you so much by. [facility] 02-08-2025 History of Presen t illness Narrative Images from the original note were not included. Patient ID: Wilda Sen is a 79 y.o. female who presents for: Hospital Follow up kidney stones Flowsheet Row Patient Outreach from 02/08/2025 in [facility] with Klaudia Terrell LPN [facility] Information ED, Hospital or Detention Facility Discharge? ED Patient has been contacted within 2 days of being seen in the ED No [unable to reach] Have two attempts been made, within 2 days of being seen in the ED, to contact the patient? Yes Diagnosis uretral Colic, Hydronephrosis with ureteral calculus, kidney stone Discharge Date 02/04/25 Discharged To: Home Setting Discharge Hospital [facility] Engagement Admission Date 02/04/25 Medications [...] transition of care note is reviewed. a jkzw-ax-trxd evaluation is done today. Medical decision making is complex in degree. Please Note: Portions of this chart may have been created using voice recognition software. Occasionally a wrong-word or sound-like substitutions may have occurred due to inherent limitations of the voice recognition software. Please read the chart carefully and recognize, using context, where the substitutions may have occurred. documented in this encounter [facility] 01-06-2025 History of Presen t illness [...] tablet; Refill: 0 documented in this encounter [facility] 12-22-2024 History of Presen t illness [...] 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 (HCC) - Protime-INR 3. detention current use of anticoagulant - Protime-INR 4. Medication monitoring encounter - Protime-INR documented in this encounter [facility] 11-24-2024 History of Presen t illness [...] in 2 weeks. documented in this encounter [facility] 11-04-2024 History of Presen t illness [...] Yes Vision Screening: Yes, patient sees regular thread trimmer/content editor Hearing Screening: Not done Cognitive Screening Self Assessment: No concerns rasied by family members, friends, or caretakers Three Word Registration: River, Nation, Finger Clock Drawing: Normal Clock - 2 Three Word Recall: All 3 words correct - 3 Total Score (0-5 Points): 5 Pain Assessment Pain Score: 4 HISTORIES: PAST MEDICAL HISTORY: Past Medical History: Diagnosis Date Arthritis Basal cell carcinoma nose (2011), uatsdin left (2014) Basal cell carcinoma (BCC) of multiple sites 2014 face Calculus of kidney Chronic kidney disease, stage 2 (mild) Depressive disorder (CMS/HCC) not elsewhere classified Diabetes (CMS/HCC) Diabetes mellitus (CMS/HCC) Diabetes mellitus without mention of complication, type II or unspecified type, not stated as uncontrolled Diarrhea, unspecified Diverticulitis of colon (without mention of hemorrhage)(562.11) Duodenitis Esophageal reflux detention (current) use of insulin ([facility]) Melanoma of shoulder, right ([facility]) 11/2014 going to Other psoriasis ([facility]) Other specified malignant neoplasm of skin of other parts of face Personal history of renal calculi Personal history of skin cancer Psoriatic arthropathy ([facility]) Renal calculus, right 02/2016 Dr. Shepherd Situational depression ([facility]) Type 2 diabetes mellitus without complications SURGICAL [...] 08/2019 MELANOMA 10/2014 excision right posterior shoulder [place] REMOVAL OF LUNG 1986 pneumonectomy SCREENING MAMMOGRAM, BILATERAL 05/31/2014 [place] [...] through a living will, durable power of energy attorney for healthcare, or other advanced directives. [...] and monitor longitudinally. documented in this encounter [facility] 11-02-2024 History of Presen t illness Narrative Reviewed microalbuminuria test Updated problem list. documented in this encounter [facility] 10-30-2024 Evaluation note Diagnosis Type 2 diabetes mellitus with stage 3a chronic kidney disease, without long-term current use of insulin (HCC) ([facility]/HCC) Stage 3a chronic kidney disease (HCC) ([facility]/HCC) Microalbuminuria Proteinuria 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 ([facility]) Atrial fibrillation terminal carman current use of anticoagulant Encounter for Medicare annual wellness exam Advance directive discussed with patient Encounter for screening for other disorder Screening for alcohol problem Screening for alcoholism Screening mammogram, encounter for documented in this encounter [facility]abdytitm46-22-1069 History of Present illness Narrative* Jayme Perez [...] long- term current use of insulin (HCC) ([facility]) Chronic problem, stable, to goal. As noted above previously filled to bridge to this visit. - Microalbumin / creatinine urine ratio; Future - Microalbumin / creatinine urine ratio - Hemoglobin A1c; Future - Hemoglobin A1c 2. Stage 3a chronic kidney disease (HCC) ([facility]) - Microalbumin / creatinine urine ratio; Future - Microalbumin / creatinine urine ratio 3. Microalbuminuria - Microalbumin / creatinine urine ratio; Future - Microalbumin / creatinine urine ratio 4. 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 ([facility]) Chronic problem, stable. See the warfarin monitoring [...] 5MG Dispense: 90 tablet; Refill: 1 5. terminal carman current use of anticoagulant As above Chronic [...] of evaluation and management. documented in this encounterSouthPointe HospitalQegdafeghq01-34-1060 Miscellaneous Notes* Telephone Encounter - Magalis Harris MA - 02/08/2025 12:30 PM EDT Copied from from pt: Yenakul, this is Jocelyn Sen, [id number]. I forgot to ask Dr. Persaud when I should start taking my warfare again and he's going to be off for a while, so I thought I'd better try and find out now. [phone], thank you. * Telephone Encounter - Magalis Harris MA - 02/08/2025 12:29 PM EDT Copied from : The is the [facility] pharmacy calling concerning the prescriptions for Wilda Sen birthday [id number] have a prescription for Roberto F on [...] you so much by. documented in this encounterSouthPointe HospitalFerqabcdri66-14-6824 Evaluation note* Diagnosis Type 2 diabetes mellitus with stage 3a chronic kidney disease, without long-term current use of insulin (HCC) ([facility]) documented in this encounter [facility] [id number] History of Present illness Narrative* Felicia Farmer [...] lid scrubs were recommended. documented in this encounterSouthPointe HospitalTxmxxcelzk31-09-2139 Evaluation note* Diagnosis Glaucoma suspect of both eyes- Primary Unspecified preglaucoma Type 2 diabetes mellitus with stage 3a chronic kidney disease, without long-term current use of insulin (HCC) (CMS/HCC) Dry eyes Unspecified tear film insufficiency Blepharitis of upper and lower eyelids of both eyes, unspecified type documented in this encounter [facility]pxqkgfud29-61-0766 Hospital Discharge instructions Patient Education 07/12/2024 11:44:44 [...] include: ?8 oz (237 mL) of milk, lswcjll-vpzmvfvsicen-ubvod milk, and calcium- fortifiedfruit juice. Calcium-fortified means [...] ?Spinach (cooked), rhubarb, beets, sweet potatoes, and Hungarian chard. ?Peanuts. ?Potato chips, greek fries, and baked potatoes with skin on. ?Nuts and nut products. ?Chocolate. If you regularly take a diuretic medicine, make sure to eat at least 1 or 2 servings of fruits or vegetables that are high in potassium each day. These include: ?Avocado. ?Banana. ?Birchwood, prune, carrot, or tomato juice. ?Baked potato. [...] magnesium, fish oil, or vitamin B6. Take bnav-eqm-mqtvjri and prescription medicines only as told by [...] Casseroles. Pizza. Lasagna. Frozen meals. Potato chips. Mosotho fries. The items listed above may not [...] provider. Document Revised: 10/10/2022 Document Reviewed: 10/10/2022 [employer] Patient Education 2023 ReferMe. Follow Up Care 02/03/2023 12:01:32 With:CORA AGUIAR, Eugenia Venegas, URL Address: [address] [place], [place] [address]- When: Unknown [facility] [id number] NotePatient Education Nephrology Dietary Guidelines to Help [...] ? 8 oz (237 mL) of milk, yqethcp-yzjhqaldvbtb-resuc milk, and calcium- fortifiedfruit juice. Calcium-fortified means [...] Spinach (cooked), rhubarb, beets, sweet potatoes, and Hungarian chard. ? Peanuts. ? Potato chips, greek fries, and baked potatoes with skin on. ? Nuts and nut products. ? Chocolate. ??? If you regularly take a diuretic medicine, make sure to eat at least 1 or 2 servings of fruits or vegetables that are high in potassium each day. These include: ? Avocado. ? Banana. ? Birchwood, prune, carrot, or tomato juice. ? Baked [...] fish oil, or vitamin B6. ??? Take ucdj-pko-yluwtif and prescription medicines only as told by your health (more content not included)...[facility]12-19-2024 Telephone encounter Note* Telephone Encounter - [...] to recheck her INR after the holiday. [facility] [id number] Miscellaneous Notes* Telephone Encounter - Jayme Perez [...] in about 2 weeks. documented in this encounterSouthPointe HospitalRogjtfrcyl79-86-8753 Telephone encounter Note* Telephone Encounter - Angeles Bonilla - 06/17/2024 9:11 AM EST Left voicemail to continue current dose and recheck in about 2 weeks [facility] HospitalJkrciemggp70-13-3862 Telephone encounter Note* Telephone Encounter - Jayme Perez MD - 06/17/2024 7:12 AM EST She is right on the border of the elevated. I would just continue the same dose and get rechecked it again in about 2 weeks. [facility] HospitalBgyydzftez69-01-2201 History of Present illness Narrative* Jayme Perez [...] problem, stable, comanaged with Cardiology. Asymptomatic. 2. terminal carman current use of anticoagulant Chronic problem, stable, monitored monthly and longitudinally 1 can see the phone notes related to this. We have previously fill her warfarin. 3. Type 2 diabetes mellitus with stage 3a chronic kidney disease, without long- term current use of insulin (HCC) (CMS/[facility]) Chronic problem, stable, to goal. In prescribing [...] I discussed with the patient or their customer service representative teacher, their fatigue issues. We discussed how this [...] 60 tablet; Refill: 0 documented in this encounterSouthPointe HospitalWaffgjjmtj29-60-7483 Hospital Discharge instructions Patient Education 10/14/2023 09:33:38 [...] include: ?8 oz (237 mL) of milk, jcweljq-ayprpebsqnqz-jhksf milk, and calcium- fortifiedfruit juice. Calcium-fortified means [...] ?Spinach (cooked), rhubarb, beets, sweet potatoes, and Hungarian chard. ?Peanuts. ?Potato chips, greek fries, and baked potatoes with skin on. ?Nuts and nut products. ?Chocolate. If you regularly take a diuretic medicine, make sure to eat at least 1 or 2 servings of fruits or vegetables that are high in potassium each day. These include: ?Avocado. ?Banana. ?Birchwood, prune, carrot, or tomato juice. ?Baked potato. [...] magnesium, fish oil, or vitamin B6. Take ldft-klt-mtychxa and prescription medicines only as told by [...] Casseroles. Pizza. Lasagna. Frozen meals. Potato chips. Mosotho fries. The items listed above may not [...] provider. Document Revised: 10/10/2022 Document Reviewed: 10/10/2022 [employer] Patient Education 2022 ReferMe. Follow Up Care 08/13/2023 10:19:44 With:CORA AGUIAR, Eugenia Venegas, URL Address: [address] [place], [place] [address]- When: Unknown [facility] [id number] Hospital Discharge instructions Patient Education 08/13/2023 11:34:50 [...] including vitamins, herbs, eye drops, creams, and amsk-igw-rbjavhc medicines. Any problems you or family members [...] provider tells you to take them. ?Taking uuhg-umz-rwdvtxf medicines, vitamins, herbs, and supplements. Eating and [...] provider. Document Revised: 11/06/2022 Document Reviewed: 03/04/2022 [employer] Patient Education 2022 ReferMe. Follow Up Care 08/12/2023 14:37:00 With:ANGELITO AGUIAR, Renato Arzola, URL Address: [facility] [address], [place] [address] [phone] When: Unknown Comments:sched ureteroscopyf/u w/ [facility] scheduled 10/14/23 [facility] 01-25-2024 History of Present illness Narrative* Jayme [...] 32.7 (H) 9.0 - 11.6 sec Final [facility] INR 07/22/2023 3.30 Final Comment: DESIRED [...] 07/22/2023 0.98 0.55 - 1.02 mg/dL Final TB EGFR-AF BRAZILIAN 07/22/2023 >60 >=60 Final TBH EGFR-NON AF BRAZILIAN 07/22/2023 55 (L) >=60 Final BUN CREATININE [...] without long-term current use of insulin (HCC) (CMS/[facility]) - metFORMIN (Glucophage) 1000 MG [...] treats. Stage 3a chronic kidney disease (HCC) (CMS/[facility]) New, Chronic problem, unstable, progressing, [...] disease. Former smoker 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, adult terminal carman current use of anticoagulant Chronic problem, that is monitored monthly, and be seen in the monthly INR results. documented in this encounterSouthPointe HospitalGyfpifnpjm48-34-2923 Evaluation note* Encounter Date Diagnosis Assessment Notes [...] care as directed rx of steroid and [place], cool mist humidification. May use Tylenol as directed. Immediate eval for signs of respiratory distress, difficulty breathing poor PO intake, signs of dehydration, fever, or other concerning symptoms. Otherwise, follow up with PCP in 2-3 days. Patient verbalizes understanding and is agreeable to treatment plan. Patient sent home in stable condition. [employer] Other 08-11-2022 NotePROCEDURE: XR FOOT LT MIN 3 VIEWS COMPARISON: None. HISTORY: Pain in left foot FINDINGS: BONES:No acute fracture or dislocation. Mild enthesopathic spurring of the calcaneus. SOFT TISSUES:Negative. No visible soft tissue swelling. EFFUSION:None visible. OTHER: Negative. IMPRESSION: Mild enthesopathic spurring of the calcaneus Electronically authenticated by: BLANCA ZAVALA Date: 2022-02-21 07:28[facility] Future Appointments Appointment Date:07/12/2024 10:45:00 AM Scheduled Provider:Eugenia SHEPHERD MD Location:[facility] Appointment Type:URO Office Visit [facility] Evaluation + Plan note Future Appointments Appointment Date:07/12/2024 10:45:00 AM Scheduled Provider:Eugenia SHEPHERD MD Location:[facility] Appointment Type:URO Office Visit Diagnostic Tests Pending * Calculi [facility]ments Appointment Date:10/14/2023 09:15:00 AM Scheduled Provider:Eugenia SHEPHERD MD Location:[facility] Appointment Type:URO Office Visit Appointment Date:07/12/2024 10:45:00 AM Scheduled Provider:Eugenia SHEPHERD MD Location:[facility] Appointment Type:URO Office Visit [facility] Evaluation noteNort Trusper Other Evaluation noteNo assessment information available [facility] Work Phone: Evaluation note* Diagnosis Chronic diastolic heart failure (CMS/HCC)- Primary Chronic diastolic heart failure 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 (CMS/HCC) Atrial fibrillation Type 2 diabetes mellitus with stage 3a chronic kidney disease, without long-term current use of insulin (HCC) (CMS/HCC) Stage 3a chronic kidney disease (HCC) (CMS/HCC) Microalbuminuria Proteinuria Former smoker Personal history of tobacco use, presenting hazards to health 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, adult terminal carman current use of anticoagulant Psoriatic arthropathy (CMS/HCC) Psoriatic arthropathy Gastroesophageal reflux disease without esophagitis Esophageal reflux [facility] Diagnosis 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 (CMS/HCC)- Primary Atrial fibrillation terminal carman current use of anticoagulant Type 2 diabetes [...] (HCC) (CMS/HCC) documented in this encounter [facility]* Diagnosis 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 (CMS/HCC) Atrial fibrillation documented in this encounter [facility]* Diagnosis Type 2 diabetes mellitus with diabetic microalbuminuria, without long-term current use of insulin (CMS/HCC)- Primary Encounter for Medicare annual wellness exam [...] of iron metabolism Chronic diastolic heart failure (CMS/HCC) Chronic diastolic heart failure 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 ([facility]/HCC) Atrial fibrillation Stage 3a chronic kidney disease (HCC) ([facility]/HCC) Age-related osteoporosis without current pathological fracture ([facility]/HCC) Psoriatic arthropathy ([facility]/HCC) Psoriatic arthropathy Type 2 diabetes mellitus with stage 3a chronic kidney disease, without long-term current use of insulin (HCC) ([facility]) Type 2 diabetes mellitus with diabetic microalbuminuria, without long-term current use of insulin ([facility]) Immunosuppressed status ([facility]) documented in this encounter [facility]* Diagnosis Vertigo- Primary Dizziness and giddiness documented in this encounter [facility]* Diagnosis Vertigo- Primary Dizziness and giddiness documented in this encounter [facility]* Diagnosis Vertigo- Primary Dizziness and giddiness documented in this encounter [facility]* Diagnosis Vertigo- Primary Dizziness and giddiness 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 (HCC) Atrial fibrillation terminal carman current use of anticoagulant Medication monitoring encounter Encounter for therapeutic drug monitoring documented in this encounter [facility]Evaluation note* Diagnosis Vertigo- Primary Dizziness and giddiness documented in this encounter [facility]* Diagnosis Vertigo- Primary Dizziness and giddiness documented in this encounter [facility]* Diagnosis Kidney stone on left side documented in this encounter [facility]Evaluation note* Diagnosis Kidney stone on left side- Primary Hospital discharge follow-up Other follow-up examination documented in this encounter [facility] HealthcareHistory general N[facility]ative - [facility] [employer] Other History general Narrative - Reported* Type Description Date Medical History Arthritis Medical History diabetes mallitus Surgical History cataract surgery [facility] [employer] Other Hospital course Narrative No data available for this section [facility] Hospital Discharge instructions No data available for this section [facility] Hospital Discharge instructions Additional Instructions DISCHARGE INSTRUCTIONS [...] X- Ray) in about six months. [ ][facility] Work Phone: Progress note No data available for this section [facility] Reason for referral (narrative)No reason for referral information available[facility] Work Phone: Rercqf for visit Narrative* Rehabilitation - Outpatient (Routine) - Authorized Specialty Diagnoses / Procedures Referred By Neymar uriarte Referred To Contact Physical Therapy Diagnoses Vertigo Procedures [place] OFFICE/OUTPATIENT NEW HIGH [facility] 60 MINUTES Jayme Perez MD [address] [place] [address] Phone: tel: fax: Joselyn Narvaez, PT Referral ID Status Reason Start Date Expiration Date Visits Requested Visits Authorized [id number] Authorized Specialty Services Required 12/22/2024 06/20/2025 10 10 [facility] Narrative* Rehabilitation - Outpatient (Routine) - Authorized Specialty Diagnoses / Procedures Referred By Contac t Referred To Contact Physical Therapy Diagnoses Vertigo Procedures [place] OFFICE/OUTPATIENT NEW HIGH [facility] 60 MINUTES Jayme Perez MD [address] [place] [address] Phone: tel: fax: Joselyn Narvaez, PT Referral ID Status Reason Start Date Expiration Date Visits Requested Visits Authorized [id number] Authorized Specialty Services Required 12/22/2024 07/13/2025 10 30 [facility] Summary Purpose Family History Relationship Condition Age [...] DATE CREATED AUTHOR AUTHOR'S ORGANIZ ATION 02/09/2025 [facility] EPIC DATE CREATED AUTHOR AUTHOR'S ORGANIZ ATION 02/24/2025 [facility] DATE CREATED AUTHOR AUTHOR'S ORGANIZ ATION 02/26/2025 [facility] y[facility] Group Patient Care team informatio n (unrecognized section and content) Team Status: Active Member Role Status Dates Jayme Perez MD Primary Care Provider Active Team Status: Inactive Member Role Status Dates Jayme Perez MD Primary Care Provider Active Eugenia Shepherd MD Attending Provider Active Fabric Stretcher Relationship Specialty Start Date End Date Jayme Perez MD [address] [facility] [place] [address] (Fax) PCP - General Family Medicine 11/25/22 Jayme Perez MD [address] [facility] [place] [address] (Fax) PCP - ACO Reach 12/05/22 Fabric Stretcher Relationship Specialty Start Date End Date Jayme Perez MD [address] [facility] [place] [address] (Fax) PCP - General Family Medicine 11/25/22 Jayme Perez MD [address] [facility] [place] [address] (Fax) PCP - ACO Reach 12/05/22 Team Status: Inactive Member Role Status Dates Jayme Perez MD Primary Care Provider Active Start: March 31, 2024 End: March 31, 2024 Radames Monteiro MD Attending Provider Active St art: March 31, 2024 End: March 31, 2024 Fabric Stretcher Relationship Specialty Start Date End Date Jayme Perez MD [address] [facility] [place] [address] (Fax) PCP - General Family Medicine 11/25/22 Jayme Perez MD [address] [facility] [place] [address] (Fax) PCP - ACO Reach 12/05/22 Felicia Farmer DO [address] [place] [address] Referring Physician Ophthalmology 08/21/23 Renato Santacruz MD [address] [place] [phone] Referring Physician Urology 08/21/23 Radames Monteiro MD [address] [place], [place] [phone] Referring Physician Rheumatology 08/21/23 Fabric Stretcher Relationship Specialty Start Date End Date Jayme Perez MD [address] [place] [address] (Fax) PCP - General Family Medicine 11/25/22 Jayme Perez MD [address] [place] [address] (Fax) PCP - ACO Reach 12/05/22 Felicia Farmer DO [address] [place] [address] Referring Physician Ophthalmology 08/21/23 Renato Santacruz MD [address] [place] [phone] Referring Physician Urology 08/21/23 Radames Monteiro MD [address] [place] [phone] Referring Physician Rheumatology 08/21/23 Fabric Stretcher Relationship Specialty Start Date End Date Jayme Perez MD [address] [place] [address] (Fax) PCP - General Family Medicine 11/25/22 Jayme Perez MD [address] [place] [address] (Fax) PCP - ACO Reach 12/05/22 Felicia Farmer DO [address] [place] [address] Referring Physician Ophthalmology 08/21/23 Renato Santacruz MD [address] [place] [address] Referring Physician Urology 08/21/23 Radames Monteiro MD [address] [facility] Professional building [address] [place] [phone] Referring Physician Rheumatology 08/21/23 Fabric Stretcher Relationship Specialty Start Date End Date Jayme Perez MD [address] [place] [address] (Fax) PCP - General Family Medicine 11/25/22 Jayme Perez MD [address] [place] [address] (Fax) PCP - ACO Reach 12/05/22 Felicia Farmer DO [address] [place] [address] Referring Physician Ophthalmology 08/21/23 Renato Santacruz MD [address] [place] [address] Referring Physician Urology 08/21/23 Radames Monteiro MD [address] [place] [phone] Referring Physician Rheumatology 08/21/23 Fabric Stretcher Relationship Specialty Start Date End Date Jayme Perez MD [address] [place] [address] (Fax) PCP - General Family Medicine 11/25/22 Jayme Perez MD [address] [place] [address] (Fax) PCP - ACO Reach 12/05/22 Felicia Farmer DO [address] [place] [address] Ave [address] [place] [phone] Referring Physician Ophthalmology 08/21/23 Renato Santacruz MD [address] [place], [place] [phone] Referring Physician Urology 08/21/23 Radames Monteiro MD [address] [place] [phone] Referring Physician Rheumatology 08/21/23 Fabric Stretcher Relationship Specialty Start Date End Date aJyme Perez MD [address] [place] [phone] (Fax) PCP - General Family Medicine 11/25/22 Jayme Perez MD [address] [place] [phone] PCP - ACO Reach 12/05/22 Felicia Farmer DO [address] [place] [address] Referring Physician Ophthalmology 08/21/23 Renato Santacruz MD [address] [place] [phone] Referring Physician Urology 08/21/23 Radames Monteiro MD [address] Professional building [address] [place] [address] Referring Physician Rheumatology 08/21/23 Fabric Stretcher Relationship Specialty Start Date End Date Jayme Perez MD [address] [place] [address] (Fax) PCP - General Family Medicine 11/25/22 Jayme Perez MD [address] [place] [address] PCP - ACO Reach 12/05/22 Felicia Farmer DO [address] [place] [address] Referring Physician Ophthalmology 08/21/23 Renato Santacruz MD [address] [place] [address] Referring Physician Urology 08/21/23 Radames Monteiro MD [address] Professional building [address] [place] [address] Referring Physician Rheumatology 08/21/23 Fabric Stretcher Relationship Specialty Start Date End Date Jayme Perez MD [address] [place] [address] (Fax) PCP - General Family Medicine 11/25/22 Jayme Perez MD [address] [place] [address] (Fax) PCP - ACO Reach 12/05/22 Felicia Farmer, [address] [place] [address] Referring Physician Ophthalmology 08/21/23 Renato Santacruz MD [address] [place] [address] Referring Physician Urology 08/21/23 Radames Monteiro MD [address] [facility] Professional building [address] [place] [phone] Referring Physician Rheumatology 08/21/23 Fabric Stretcher Relationship Specialty Start Date End Date Jayme Perez MD [address] [place] [address] (Fax) PCP - General Family Medicine 11/25/22 Jayme Perez MD [address] [place] [address] (Fax) PCP - ACO Reach 12/05/22 Felicia Farmer DO [address] [place] [address] Referring Physician Ophthalmology 08/21/23 Renato Santacruz MD [address] [place] [phone] Referring Physician Urology 08/21/23 Radames Monteiro MD [address] [facility] [address] [place] [address] Referring Physician Rheumatology 08/21/23 Fabric Stretcher Relationship Specialty Start Date End Date Jayme Perez MD [address] [place] [address] (Fax) PCP - General Family Medicine 11/25/22 Jayme Perez MD [address] [place] [address] (Fax) PCP - ACO Reach 12/05/22 Felicia Farmer DO [address] [place] [address] Referring Physician Ophthalmology 08/21/23 Renato Santacruz MD [address] [place] [phone] Referring Physician Urology 08/21/23 Radames Monteiro MD [address] [facility] [address] [place] [address] Referring Physician Rheumatology 08/21/23 Fabric Stretcher Relationship Specialty Start Date End Date Jayme Perez MD [address] [place] [address] (Fax) PCP - General Family Medicine 11/25/22 Jayme Perez MD [address] [place] [address] PCP - ACO Reach 12/05/22 Felicia Farmer DO [address] [place] [address] Referring Physician Ophthalmology 08/21/23 Renato Santacruz MD [address] [place] [phone] Referring Physician Urology 08/21/23 Radames Monteiro MD [address] Professional building [address] [place] [phone] Referring Physician Rheumatology 08/21/23 Fabric Stretcher Relationship Specialty Start Date End Date Jayme Perez MD [address] [facility] [address] [place] [address] (Fax) PCP - General Family Medicine 11/25/22 Jayme Perez MD [address] [address] PCP - ACO Reach 12/05/22 Felicia Farmer DO [address] [place] [address] Referring Physician Ophthalmology 08/21/23 Renato Santacruz MD [address] [place] [address] Referring Physician Urology 08/21/23 Radames Monteiro MD [address] Professional building [address] [place] [address] Referring Physician Rheumatology 08/21/23 Fabric Stretcher Relationship Specialty Start Date End Date Jayme Perez MD [address] [address] (Fax) PCP - General Family Medicine 11/25/22 Jayme Perez MD [address] [address] (Fax) PCP - ACO Reach 12/05/22 Felicia Farmer DO [address] [place] [address] Referring Physician Ophthalmology 08/21/23 Renato Santacruz MD [address] [place] [address] Referring Physician Urology 08/21/23 Radames Monteiro MD [address] [facility] Professional building [address] [place] [phone] Referring Physician Rheumatology 08/21/23 Fabric Stretcher Relationship Specialty Start Date End Date Jayme Perez MD [address] [address] (Fax) PCP - General Family Medicine 11/25/22 Jayme Peerz MD [address] [address] (Fax) PCP - ACO Reach 12/05/22 Felicia Farmer DO [address] [place], [place] [phone] Referring Physician Ophthalmology 08/21/23 Renato Santacruz MD [address] [place] [phone] Referring Physician Urology 08/21/23 Radames Monteiro MD [address] Professional building [address] [place] [address] Referring Physician Rheumatology 08/21/23 Fabric Stretcher Relationship Specialty Start Date End Date Jayme Perez MD [address] [place] [address] (Fax) PCP - General Family Medicine 11/25/22 Jayme Perez MD [address] [place] [address] (Fax) PCP - ACO Reach 12/05/22 Felicia Farmer DO [address] [place] [address] Referring Physician Ophthalmology 08/21/23 Renato Santacruz MD [address] [place] [phone] Referring Physician Urology 08/21/23 Radames Monteiro MD [address] Professional building [address] [place] [phone] Referring Physician Rheumatology 08/21/23 Fabric Stretcher Relationship Specialty Start Date End Date Jayme Perez MD [address] [place] [address] (Fax) PCP - General Family Medicine 11/25/22 Jayme Perez MD [address] [place] [address] PCP - ACO Reach 12/05/22 Felicia Farmer DO [address] [place] [address] Referring Physician Ophthalmology 08/21/23 Renato Santacruz MD [address] [place] [address] Referring Physician Urology 08/21/23 Radames Monteiro MD [address] Professional building [address] [place] [address] Referring Physician Rheumatology 08/21/23 Fabric Stretcher Relationship Specialty Start Date End Date Jayme Perez MD [address] [place] [address] (Fax) PCP - General Family Medicine 11/25/22 Jayme Perez MD [address] [place] [address] PCP - ACO Reach 12/05/22 Felicia Farmer DO [address] [place] [address] Referring Physician Ophthalmology 08/21/23 Renato Santacruz MD [address] [place] [address] Referring Physician Urology 08/21/23 Radames Monteiro MD [address] Professional building [address] [place] [phone] Referring Physician Rheumatology 08/21/23 Fabric Stretcher Relationship Specialty Start Date End Date Jayme Perez MD [address] [address] (Fax) PCP - General Family Medicine 11/25/22 Jayme Perez MD [address] [address] (Fax) PCP - ACO Reach 12/05/22 Felicia Farmer DO [address] [place] [address] Referring Physician Ophthalmology 08/21/23 Renato Santacruz MD [address] [place], [place] [phone] Referring Physician Urology 08/21/23 Radames Monteiro MD [address] [facility] Professional [address] [phone] Referring Physician Rheumatology 08/21/23 Fabric Stretcher Relationship Specialty Start Date End Date Jayme Perez MD [address] [address] (Fax) PCP - General Family Medicine 11/25/22 Jayme Perez MD [address] [address] (Fax) PCP - ACO Reach 12/05/22 Felicia Farmer DO [address] [place] [address] Referring Physician Ophthalmology 08/21/23 Renato Santacruz MD [address] [place] [phone] Referring Physician Urology 08/21/23 Radames Monteiro MD [address] Professional building [address] [place] [address] Referring Physician Rheumatology 08/21/23 Fabric Stretcher Relationship Specialty Start Date End Date Jayme Perez MD [address] [place] [address] (Fax) PCP - General Family Medicine 11/25/22 Jayme Perez MD [address] [place] [address] (Fax) PCP - ACO Reach 12/05/22 Felicia Farmer DO [address] [place] [address] Referring Physician Ophthalmology 08/21/23 Renato Santacruz MD [address] [place] [phone] Referring Physician Urology 08/21/23 Radames Monteiro MD [address] Professional building [address] [place] [address] Referring Physician Rheumatology 08/21/23 Fabric Stretcher Relationship Specialty Start Date End Date Jayme Perez MD [address] [place] [address] (Fax) PCP - General Family Medicine 11/25/22 Jayme Perez MD [address] [place] [address] PCP - ACO Reach 12/05/22 Felicia Farmer DO [address] [place] [address] Referring Physician Ophthalmology 08/21/23 Renato Santacruz MD [address] [place] [address] Referring Physician Urology 08/21/23 Radames Monteiro MD [address] Professional building [address] [place] [phone] Referring Physician Rheumatology 08/21/23 Fabric Stretcher Relationship Specialty Start Date End Date Jayme Perez MD [address] [place] [address] (Fax) PCP - General Family Medicine 11/25/22 Jayme Perez MD [address] [place] [address] PCP - ACO Reach 12/05/22 Felicia Farmer DO [address] [place] [address] Referring Physician Ophthalmology 08/21/23 Renato Santacruz MD [address] [place] [address] Referring Physician Urology 08/21/23 Radames Monteiro MD [address] Professional building [address] [place] [phone] Referring Physician Rheumatology 08/21/23 Fabric Stretcher Relationship Specialty Start Date End Date Jayme Perez MD [address] [place] [address] (Fax) PCP - General Family Medicine 11/25/22 Jayme Perez MD [address] [place] [address] (Fax) PCP - ACO Reach 12/05/22 Felicia Farmer DO [address] [place] [address] Referring Physician Ophthalmology 08/21/23 Renato Santacruz MD [address] [place], [place] [phone] Referring Physician Urology 08/21/23 Radames Monteiro MD [address] [facility] Professional building [address] [place] [phone] Referring Physician Rheumatology 08/21/23 Fabric Stretcher Relationship Specialty Start Date End Date Jayme Perez MD [address] [place] [address] (Fax) PCP - General Family Medicine 11/25/22 Jayme Perez MD [address] [place] [address] (Fax) PCP - ACO Reach 12/05/22 Felicia Farmer DO [address] [place] [address] Referring Physician Ophthalmology 08/21/23 Renato Santacruz MD [address] [place] [address] Referring Physician Urology 08/21/23 Radames Monteiro MD [address] Professional building [address] [place] [phone] Referring Physician Rheumatology 08/21/23 Team Status: Inactive Member Role Status Dates Lobito Tapia DO Attending Provider Active S tart: February 04, 2025 End: February 04, 2025 Fabric Stretcher Relationship Specialty Start Date End Date Jayme Perez MD [address] [place] [address] (Fax) PCP - General Family Medicine 11/25/22 Jayme Perez MD [address] [place] [address] (Fax) PCP - ACO Reach 12/05/22 Felicia Farmer DO [address] [place] [address] Referring Physician Ophthalmology 08/21/23 Renato Santacruz MD [address] [place] [address] Referring Physician Urology 08/21/23 Radames Monteiro MD [address] [place] [phone] Referring Physician Rheumatology 08/21/23 Team Status: Inactive Member Role Status Dates Jayme Perez MD Primary Care Provider Active Start: February 11, 2025 End: February 11, 2025 Kristie Hermosillo [facility] Attending Provider Active Start: February 11, 2025 End: February 11, 2025 Team Status: Inactive Member Role Status Dates Jayme Perez MD Primary Care Provider Active Start: February 14, 2025 End: February 14, 2025 Eugenia Shepherd MD Attending Provider Active St art: February 14, 2025 End: February 14, 2025 Fabric Stretcher Relationship Specialty Start Date End Date Jayme Perez MD [address] [facility] [address] [place] [address] (Fax) PCP - General Family Medicine 11/25/22 Jayme Perez MD [address] [address] (Fax) PCP - ACO Reach 12/05/22 Felicia Farmer DO [address] [place], [place] [address] [place] [address] Referring Physician Ophthalmology 08/21/23 Renato Santacruz MD [address] [place] [address] Referring Physician Urology 08/21/23 Radames Monteiro MD [address] [facility] Professional building [address] [place] [phone] Referring Physician Rheumatology 08/21/23 Fabric Stretcher Relationship Specialty Start Date End Date Jayme Perez MD [address] [facility] [address] [place] [address] (Fax) PCP - General Family Medicine 11/25/22 Jayme Perez MD [address] [facility] [address] [place] [address] PCP - ACO Reach 12/05/22 Felicia Farmer DO [address] [place] [address] Referring Physician Ophthalmology 08/21/23 Renato Santacruz MD [address] [place] [address] Referring Physician Urology 08/21/23 Radames Monteiro MD [address] [facility] Professional building [address] [place] [address] Referring Physician Rheumatology 08/21/23 Rebeca Emerson, DYE AUTOMATION OPERATOR [address] [place], [place] [id number] Category Development Manager Family Medicine 03/04/25 Goals (unrecognized section and content) Goals may [...] BE BASED ON THE PRIMARY CLINICAL RECORDS. [employer] provides no warranty or guarantee of the accuracy or completeness of information in this document.
[2025-04-05 11:54] LABS: INR 1.98; Prothrombin Time 19.6 sec (9.0-11.6)
== END 2025-04-05 10:40 | disposition home or self-care (01) ==
LOC: LAB 10:45
PROVIDERS: PCP Family Medicine; Visit Provider Family Medicine
DX: Z79.01 Long term (current) use of anticoagulants (principal); I48.0 Paroxysmal atrial fibrillation; Z51.81 Encounter for therapeutic drug level monitoring
CPT/HCPCS: 36415; 85610

== ENCOUNTER 2025-04-19 10:02 | Outpatient (OUT) | payer MEDICARE, SELFPAY ==
--- OUTSIDE RECORDS SUMMARY | 2025-04-19 10:06 | XMS_ITS | Encounter Summary ---
Author Organization [facility] Address [address] [place] [address] Care Team Providers Care Concrete Pipe Maker Name Role Phone Jayme Parham MD Primary Care Provider Jayme Parham MD Unavailable [phone] Mick Farmer DO Unavailable [phone] Renato Santacruz MD Unavailable [phone] Chuy Wood MD Unavailable Rebeca Emerson AGENCY OWNER Unavailable [phone] Encounter Details Date Type Department Care Team (Late st Contact Info) Description 01/25/2025 Results Follow-Up [place] [address] Family Medicine 112 [facility] 100 [place] [address] Jayme Parham MD 112 [facility] 100 [place] [address] MR brain w and wo contrast IACs [...] often do you attend [facility] or jainism services? Never 04/08/2024 Do you belong to [...] Questionnaire-2 Score 0 11/04/2024 [facility] - [...] documented as of this encounter Care Teams Concrete Pipe Maker Relationship Specialty Start Date End Date Jayme Parham MD 112 [facility] 100 [place] [address] PCP - General Family Medicine 11/25/22 Jayme Parham MD 112 [facility] 100 [place] [address] PCP - ACO Reach 12/05/22 Mick Farmer DO [address] [place], [place] [address] [address] [place] [address] Referring Physician Ophthalmology 08/21/23 Renato Santacruz MD 290 [place] [address] Referring Physician Urology 08/21/23 Chuy Wood MD [address] [facility] Professional building 1 [place] [address] Referring Physician Rheumatology 08/21/23 Rebeca Emerson, AGENCY OWNER [address] [place] [address] [facility] Family [facility] 03/04/25 03/11/25 documented as of this encounter
--- OUTSIDE RECORDS SUMMARY | 2025-04-19 10:06 | XMS_ITS | Encounter Summary ---
Author Organization [facility] Address [address] [place] [address] Care Team Providers Care Musical Therapist Name Role Phone Jayme Parham MD Primary Care Provider Jayme Parham MD Unavailable [phone] Mick Farmer DO Unavailable [phone] Renato Santacruz MD Unavailable [phone] Chuy Wood MD Unavailable Rebeca Emerson BEVELING MACHINE OPERATOR Unavailable [phone] Encounter Details Date Type Department Care Team (Late st Contact Info) Description 11/17/2023 Orders Only [facility] [place] 521 Family Medicine [address] [place] [address] Jayme Parham MD 112 [facility] [address] [place] [address] Social History Tobacco Use Types [...] 12/11/2022 How often do you attend chur [employer] or buddhism services? Never 12/11/2022 Active Member [...] Questionnaire-2 Score 0 02/06/2023 [facility] - Occupational Stress Questionnaire Answer Date [...] documented as of this encounter Care Teams Musical Therapist Relationship Specialty Start Date End Date Jayme Parham MD 112 [facility] 100 [place] [address] PCP - General Family Medicine 11/25/22 Jayme Parham MD 112 [facility] [address] [place] [address] PCP - ACO Reach 12/05/22 Mick Farmer DO [facility] [address] [place] [address] Referring Physician Ophthalmology 08/21/23 Renato Santacruz MD [address] [place] [address] Referring Physician Urology 08/21/23 Chuy Wood MD [address] [facility] Professional building 1 [place] [address] Referring Physician Rheumatology 08/21/23 Rebeca Emerson, DINA [address] [place] [address] Commercial Escrow Assistant Family Medicine 03/04/25 03/11/25 documented as of this encounter
--- OUTSIDE RECORDS SUMMARY | 2025-04-19 10:06 | XMS_ITS | Encounter Summary ---
Author Organization [facility] Address [address] [place] [address] Care Team Providers Care Top Precipitator Operator Helper Name Role Phone Jayme Parham MD Primary Care Provider Jayme Parham MD Unavailable [phone] Mick Farmer DO Unavailable [phone] Renato Santacruz MD Unavailable [phone] Chuy Wood MD Unavailable Rebeca Emerson DIRECTOR OF SOCIAL WORK Unavailable [phone] Encounter Details Date Type Department Care Team (Late st Contact Info) Description 09/18/2023 Orders Only [facility] [place] 521 Family Medicine [address] [place] [address] Jayme Parham MD 112 [facility] [address] [place] [address] Social History Tobacco Use Types [...] 12/11/2022 How often do you attend chur [employer] or baptist services? Never 12/11/2022 Active Member [...] Patient Health Questionnaire-2 Score 0 02/06/2023 [facility] - Occupational Stress Questionnaire Answer Date [...] documented as of this encounter Care Teams Top Precipitator Operator Helper Relationship Specialty Start Date End Date Jayme Parham MD 112 [facility] 100 [place] [address] PCP - General Family Medicine 11/25/22 Jayme Parham MD 112 [facility] [address] [place] [address] PCP - ACO Reach 12/05/22 Mick Farmer DO [address] [facility] [address] [place] [address] Referring Physician Ophthalmology 08/21/23 Renato Santacruz MD [address] [place] [address] Referring Physician Urology 08/21/23 Chuy Wood MD [address] [facility] Professional building 1 [place] [address] Referring Physician Rheumatology 08/21/23 Rebeca Emerson, DINA [address] [place] [address] Mobile Application Tester Family Medicine 03/04/25 03/11/25 documented as of this encounter
--- OUTSIDE RECORDS SUMMARY | 2025-04-19 10:06 | XMS_ITS | Encounter Summary ---
Author Organization [facility] Address [address] [place] [address] Care Team Providers Care Filament Maker Name Role Phone Jayme Perez MD Primary Care Provider [phone] Jayme Perez MD Unavailable [phone] Mick Farmer DO Unavailable [phone] Renato Santacruz MD Unavailable [phone] Chuy Wood MD Unavailable [phone] Rebeca Emerson Unavailable [phone] Encounter Details Date Type Department Care [...] often do you attend chur ch or sabianist services? Never 12/11/2022 Active Member of [employer] [...] Questionnaire-2 Score 0 02/06/2023 [facility]ational [facility] Questionnaire Answer Date Recorded [...] EDT Narrative 10/09/2023 6:25 AM EDT The [address] [address] XRay Report Signed Patient: WILDA SEN MR#: [id number] : 1945 Acct:[id number] Age/Sex: 78 / F ADM Date: 10/08/23 Loc: RAD Attending Dr: Williams Jackson M.D. Ordering Physician: Williams Jackson M.D. Date of Service: 10/08/23 Procedure(s): XR abdomen 1V Accession Number(s): [id number] cc: Williams Jackson M.D.; JAYME PEREZ The [place] [id number] Patient Name: WILDA SEN MRN: [id number] date: 1945 Sex: F Assigned Patient Location: RAD Current Patient Location: Accession/Order Number: [id number] Exam Date: 10/08/2023 10:37 Report Date: 10/09/2023 [...] M.D. Signed By: 10/09/23624 DD/ 1 TD/TT: Natural Resources Specialist: Procedure Note Radiology, Radiologist, MD - 10/09/2023 [place] [address] XRay Report Signed Patient: WILDA SEN JMR#: [id number] : 1945cct:[id number] Age/Sex: 78 / FADM Date: 10/08/23 Loc: RAD Attending Dr: Williams Jackson M.D. Ordering Physician: Cook,Williams M.D. Date of Service: 10/08/23 Procedure(s): XR abdomen 1V Accession Number(s): [id number] cc: Williams Jackson M.D.; JAYME PEREZ [address] [address] Patient Name: WILDA SEN MRN: [id number] date: 1945 Sex: F Assigned Patient [facility]: [facility] Current Patient Location: Accession/Order Number: [id number] Exam Date: 10/08/2023 10:37 Report Date: 10/09/2023 [...] Garay M.D. Signed By:10/09/23624 DD/ 1 TD/TT: Natural Resources Specialist: us Generic External Data Provider [facility] Final Result documented in this encounter Visit Diagnoses Not on filedocumented in this encounter Additional Health Concerns Assessment Noted Time PHQ-9 Depression Total Score: 7 05/22/20 23 2:00 PM EST documented as of this encounter Care Teams Filament Maker Relationship Specialty Start Date End Date Jayme Perez MD [address] [place] [address] PCP - General Family Medicine 11/25/22 Jayme Perez MD 112 [facility] [address] [place] [address] PCP - ACO Reach 12/05/22 Mick Farmer DO [address] [facility] [address] [place] [address] Referring Physician Ophthalmology 08/21/23 Renato Santacruz MD [address] [place] [address] Referring Physician Urology 08/21/23 Chuy Wood MD [address] [facility] Professional building 1 [place] [address] Referring Physician Rheumatology 08/21/23 Rebeca Emerson, DINA [address] [place] [address] [facility] Family Medicine 03/04/25 03/11/25 documented as of this encounter
--- OUTSIDE RECORDS SUMMARY | 2025-04-19 10:06 | XMS_ITS | Encounter Summary ---
Author Organization [facility] Address [address] [place] [address] Care Team Providers Care Home Health Registered Nurse Name Role Phone Jayme Parham MD Primary Care Provider [phone] Jayme Parham MD Unavailable [phone] Mick Farmer DO Unavailable [phone] Renato Santacruz MD Unavailable [phone] Chuy Wood MD Unavailable Rebeca Emerson NEWSPAPER MANAGING EDITOR Unavailable [phone] Encounter Details Date Type Department Care Team (Late st Contact Info) Description 08/12/2023 Abstract [facility] [place] 521 Family Medicine [address] [place] [address] Jayme Parham MD 112 [facility] [address] [place], [place] [id number] Social History Tobacco Use Types Packs/Day Years [...] 12/11/2022 How often do you attend chur [employer] or oriental orthodox services? Never 12/11/2022 Active [...] Health Questionnaire-2 Score 0 02/06/2023 [facility] ional [facility] - Occupational [...] documented as of this encounter Care Teams Home Health Registered Nurse Relationship Specialty Start Date End Date Jayme Parham MD 112 [employer] [facility] 100 [place] [address] PCP - General Family Medicine 11/25/22 Jayme Parham MD 112 [facility] 100 [place] [address] PCP - ACO Reach 12/05/22 Mick Farmer DO [address] [facility] [address] [place] [address] Referring Physician Ophthalmology 08/21/23 Renato Santacruz MD [address] [place] [address] Referring Physician Urology 08/21/23 Chuy Wood MD [address] [facility] Professional building 1 [place] [address] Referring Physician Rheumatology 08/21/23 Rebeca Emerson, DINA [address] [place] [address] Supply Chain Vice President Family Medicine 03/04/25 03/11/25 documented as of this encounter
--- OUTSIDE RECORDS SUMMARY | 2025-04-19 10:06 | XMS_ITS | Encounter Summary ---
Author Organization [facility] Address [address] [place] [address] Care Team Providers Care Plan Examiner Name Role Phone Jayme Parham MD Primary Care Provider Jayme Parham MD Unavailable [phone] Mick Farmer DO Unavailable [phone] Renato Santacruz MD Unavailable [phone] Chuy Wood MD Unavailable [phone] Rebeca Emerson BALLROOM DANCER Unavailable [phone] Encounter Details Date Type Department Care Team (Late st Contact Info) Description 09/03/2023 Orders Only [facility] [place] 521 Family Medicine [address] [place] [address] Jayme Parham MD 112 [facility] [address] [place] [address] Social History Tobacco Use Types [...] 12/11/2022 How often do you attend chur [employer] or muslim services? Never 12/11/2022 Active Member [...] 02/06/2023 [facility] Health - Occupational Stress Questionnaire Answer Date [...] documented as of this encounter Care Teams Plan Examiner Relationship Specialty Start Date End Date Jayme Parham MD 112 [facility] [facility] 100 [place] [address] PCP - General Family Medicine 11/25/22 Jayme Parham MD 112 [facility] [address] [place] [address] PCP - ACO Reach 12/05/22 Mick Farmer DO [address] [facility] [address] [place] [address] Referring Physician Ophthalmology 08/21/23 Renato Santacruz MD [address] [place] [address] Referring Physician Urology 08/21/23 Chuy Wood MD [address] [facility] Professional building 1 [place] [address] Referring Physician Rheumatology 08/21/23 Rebeca Emerson, DINA [address] [place] [address] [employer]ili[employer] Supervisor Family Medicine 03/04/25 03/11/25 documented as of this encounter
--- OUTSIDE RECORDS SUMMARY | 2025-04-19 10:06 | XMS_ITS | Clinical Summary ---
Author Organization [facility] Healthcare Address [address] [place] [address] Care Team Providers Care Loss Control Engineer Name Role Phone Faye Perez MD Primary Care Provider [phone] Faye Perez MD Unavailable [phone] Mick Farmer DO Unavailable [phone] Renato Santacruz MD Unavailable [phone] Chuy Wood MD Unavailable [phone] Allergies Active Allergy Reactions Criticality Noted Date Comments Ciprofloxacin Low 02/18/2022 Other Reaction(s): bennett, Hydrocodone Bit-Homatrop Mbr Dizziness 08/07/2023 Ketorolac Nausea [...] 1 capsule orally once a day Active Spacer/Aero-Holdin g Chambers (BreatheRite Leonor Spacer Adult) miscIndications:Ch ronic obstructive pulmonary disease with acute exacerbation (HCC) 2 puffs 4 (four) times a day as needed (sob and cough) 1 each 07/16/19 24 Active albuterol HFA 90 mcg/act inhalerIndications :Chronic obstructive pulmonary disease with acute exacerbation (HCC) Inhale 2 puffs in the morning and 2 puffs at noon and 2 puffs in the evening and 2 puffs before bedtime. 18 g 07/16/19 24 Active traZODone (Desyrel) 50 MG tabletIndications: Insomnia Titrate nightly from 1/2 tablet up to 2 tablets by 1/2 tablet increments as tolerated 60 tablet 04/15/20 24 Active predniSONE (Deltasone) 5 MG tablet Take 2.5 mg by mouth Daily Active Methotrexate 12.5 MG/0.5ML solution prefilled syringe Inject 0.5 mL under the skin 1 (one) time per week Active golimumab (Simponi) 100 MG/ML solution auto-injector Inject 100 mg under the skin every 8 (eight) weeks Active warfarin (Coumadin) 4 MG tabletIndications: 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 (HCC) Take 1 tablet (4 mg) by mouth at bedtime 11/25/19 25 Active docusate sodium (Colace) 100 MG capsule Take 100 mg by mouth in the morning and 100 mg before bedtime. Active oxybutynin (Ditropan) 5 MG tablet Take 5 mg by mouth as needed in the morning and 5 mg as needed at noon and 5 mg as needed in the evening (bladder spasms). Active ondansetron ODT (Zofran-ODT) 4 MG disintegrating tabletIndications: Kidney stone on left side Take 1 tablet (4 mg) by mouth every 8 (eight) hours if needed for nausea or vomiting for up to 10 days 30 tablet 02/09/20 25 Active levoFLOXacin (Levaquin) 250 MG tabletIndications: Kidney stone on left side TAKE 1 TABLET BY MOUTH DAILY FOR 10 DAYS 10 tablet 02/09/20 25 Active acarbose (Precose) 100 MG tabletIndications: Type 2 diabetes mellitus with stage 3a chronic kidney disease, without long-term current use of insulin ([facility]) Take 1 tablet (100 mg) by mouth in the morning and 1 tablet (100 mg) at noon and 1 tablet (100 mg) in the evening. Take with meals. 90 tablet 04/18/20 25 025 Active metFORMIN (Glucophage) 1000 MG tabletIndications: Type 2 diabetes mellitus with stage 3a chronic kidney disease, without long-term current use of insulin ([facility]) Take 1 tablet (1,000 mg) by mouth in the morning and 1 tablet (1,000 mg) in the evening. Take with meals. 60 tablet 04/18/20 25 025 Active acarbose (Precose) 100 MG tabletIndications: Type 2 diabetes mellitus with stage 3a chronic kidney disease, without long-term current use of insulin ([facility]) Take 1 tablet (100 mg) by mouth in the morning and 1 tablet (100 mg) at noon and 1 tablet (100 mg) in the evening. Take with meals. 270 tablet 1 10/19/19 25 025 Discontin ued(Reord er) metFORMIN (Glucophage) 1000 MG tabletIndications: Type 2 diabetes mellitus with stage 3a chronic kidney disease, without long-term current use of insulin ([facility]) Take 1 tablet (1,000 mg) by mouth in the morning and 1 tablet (1,000 mg) in the evening. Take with meals. 180 tablet 1 10/19/19 25 025 Discontin ued(Reord er) Active Problems Problem Noted Date Diagnosed Date Type 2 diabetes mellitus wit h diabetic microalbuminuria, without long-term current use of insulin 11/02/2024 BMI 22.0-22.9, adult 07/30/2023 terminal gauger current use of anticoagulant Pseudophakia 06/18/2023 Glaucoma [...] eye 06/25/2023 12/31/2023 Type 1 diabetes mellitus wit hout complications 05/19/2023 05/22/2023 Age-related nuclear cataract of both eyes 05/19/2023 12/31/2023 Blepharitis of upper and low er eyelids of both eyes 05/19/2023 11/04/2024 Overweight 12/12/2022 07/30/2023 Former smoker 03/27/2017 08/07/2023 Encounters Date Type Department Care Team Description 04/17/2025 Refill [facility] [address] [address] Faye Perez MD 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 (HCC); Type 2 diabetes mellitus with stage 3a chronic kidney disease, without long-term current use of insulin ([facility]) 04/14/2025 Refill [facility] [address] [address] Faye Perez MD 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 (HCC); Type 2 diabetes mellitus with stage 3a chronic kidney disease, without long-term current use of insulin ([facility]) 04/05/2025 Results Follow-Up [facility] [address] [address] [place] [address] Faye Perez MD [facility] PROTHROMBIN TIME INR W/O COUM 04/05/2025 Clinisync Result Encounter NOMS External Department Unsolicited Faye Perez MD 03/09/2025 Results Follow-Up [facility] [address] [place] [address] [place] [address] Kimberly[place]land, [place] [facility]MCO[facility] PROTHROMBIN TIME INR W/O COUM 03/08/2025 Patient Outreach [facility] [address] [place] [address] Rebeca Emerson LSW 03/08/2025 Clinisync Result Encounter NOMS External Department Unsolicited Faye Perez MD 02/16/2025 Telephone [facility] [address] [place] [address] [place] [address] Kimberly[place]land, [place] Care Coordination 02/08/2025 10:30 AM EDT Office Visit [facility] [place] [address] [address] [place] [address] Faye Perez MD Kidney stone on left side (Primary Dx); Hospital discharge follow-up 02/08/2025 Telephone [facility] [place] [address] [address] [place] [address] Faye Perez MD Med Change Request 02/08/2025 Travel 02/08/2025 Patient Outreach [facility] [address] [place] [address] Klaudia Terrell LPN 02/04/2025 Clinisync Result Encounter [facility]OMS External Department Unsolicited Provider, Generic External Data 02/02/2025 Clinisync Result Encounter [facility]OMS External Department Unsolicited Provider, Generic External Data 01/31/2025 Clinisync Result Encounter [facility] External Department Unsolicited Provider, Generic External Data 01/25/20[address] [facility] [address] [place] [address] Faye Perez MD 01/25/2025 Results Follow-Up [facility] [address] [facility] 100 [place] [address] Faye Perez MD MR brain w and wo contrast IACs 01/21/2025 Clinisync Result Encounter [facility]OMS External Department Unsolicited Provider, Generic External Data 01/20/2025 2:30 PM EDT Ancillary Procedure [facility] [address] [address] Vertigo; 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 (HCC); Unsteady gait 01/20/2025 Travel from Last 3 Months Family History Medical [...] How often do you attend chur or orthodoxy services? Never 04/08/2024 Do you belong to any clubs o r organizations such as yazdanism groups, unions, fraternal or athletic groups, or [...] Recorded Patient Health Questionnaire-2 Score 0 11/04/2024 [facility] - Occupational [...] any time in the past 12 m [facility], were you homeless or [...] - - Weight 57.6 kg (127 lb) 01/06/2025 11:39 AM EDT Height 160 cm (5' 3 ) 01/06/2025 11:39 AM EDT Body Mass Index 22.5 01/06/2025 11:39 AM EDT Plan of Treatment Health Maintenance Due Date Last Done Comments Skin Cancer Screening 1946 Influenza Vaccine (#1) 2025 Diabetes: Hemoglobin A1C 04/19/2025 025, 02/03/2023, 08/09/2022, Additional history exists Pneumococcal Vaccine: 65+ Years (1 of 2 - PCV) 09/13/2025 Postponed from 1965 (Patient Refused) Diabetes: Urine Protein Screening 11/02/2025 11/02/2024, 09/13/2019, 09/25/2017 Diabetes: Retinopathy Screening 08/04/2026 08/04/2024, 08/04/2024, 08/04/2024, Additional history exists Procedures Procedure Name Priority Date/Time Associated Diagnosis Comments [facility] PROTHROMBIN TIME INR W/O COUM Routine 04/05/2025 11:20 AM EDT [facility] PROTHROMBIN TIME INR W/O COUM Routine 03/08/2025 12:01 PM EDT [place] - [facility] Routine 02/04/2025 1:19 PM EDT XR ABDOMEN 1V 02/02/2025 10:30 AM EDT BLOOD CULTURE 2 Routine 01/31/2025 9:56 AM EDT BLOOD CULTURE 1 Routine 01/31/2025 9:50 AM EDT ALL MAGNESIUM Routine 01/21/2025 1:58 PM EDT ALL PHOSPHOROUS Routine 01/21/2025 1:58 PM EDT [facility] CMP (CMP) (FOR REMOTE [facility] USE) Routine 01/21/2025 1:58 PM EDT ALL SED RATE Routine 01/21/2025 1:58 PM EDT ALL CBC WITH AUTO DIFF Routine 01/21/2025 1:58 PM EDT MR BRAIN W AND WO CONTRAST (IACS) Routine 01/20/2025 3:38 PM EDT Vertigo 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 (HCC) Unsteady gait HEMOGLOBIN A1C Routine 02/03/2023 12:42 PM EDT Type 2 diabetes mellitus with stage 3a chronic kidney disease, without long-term current use of insulin (HCC) COLOR FUNDUS PHOTOGRAPHY - OU - BOTH EYES Routine 05/14/2021 12:00 PM EDT MICROALBUMIN, URINE QUANT Routine 09/13/2019 12:00 PM EST from Last 3 Months or Most Recently Relevant to Health Maintenance Results * (ABNORMAL) [facility] PROTHROMBIN TIME INR W/O COUM (04/05/2025 11:20 AM EDT) Only the most recent of2 resultswithin the time period is included. PROTHROMBIN TIME 19.6(H) 9.0 - 11.6 sec [facility] INR 1.98 TB Comment: DESIRED INR: 2.0-3.0 CONDITIONS NOT LISTED BELOW 2.5-3.5 FOR PROSTHETIC HEART VALVE REPLACEMENT 2.5-3.5 RECURRENT THROMBOSIS 04/05/2025 11:2 0 AM EDT 04/05/2025 11:26 AM EDT Narrative CLINISYNC - 04/05/2025 11:55 AM EDT Faye Perez MD CLINISYEMILY Final Result CLINISYEMILY [facility] * (ABNORMAL) URINE CULTURE - [facility] (02/04/2025 1:19 PM EDT) URINE CULTURE - [facility] Urine Culture - [facility] Testing performed [facility]INE CULTURE - [facility] [address] [place] [address] [facility] URINE CULTURE - FR O:ENTCLC Isolated [facility] URINE CULTURE - [facility] Urine Culture - [facility] Organism Comments [facility] URINE CULTURE - [facility] 25,000 CFU/ML TB URINE CULTURE - FR Organism: 1.1 Antibiotic Interpretation KIKA Status [facility] URINE CULTURE - [facility] Amikacin S F(S) [facility] URINE CULTURE - [facility] Aztreonam I F(I) [facility] URINE CULTURE - [facility] Ceftazidime I F(I) [facility] URINE CULTURE - [facility] Ciprofloxacin S F(S) [facility] URINE CULTURE - [facility] Ertapenem S F(S) [facility] URINE CULTURE - [facility] Gentamicin S F(S) [facility] URINE CULTURE - [facility] Levofloxacin S F(S) [facility] URINE CULTURE - [facility] Meropenem S F(S) [facility] URINE CULTURE - [facility] Meropenem/Vaborbac luke S F(S) [facility] URINE CULTURE - [facility] Nitrofurantoin S F(S) [facility] URINE CULTURE - [facility] Tetracycline S F(S) [facility] URINE CULTURE - [facility] Tigecycline S F(S) [facility] URINE CULTURE - [facility] Tobramycin S F(S) [facility] URINE CULTURE - [facility] Cefepime S F(S) [facility] URINE CULTURE - [facility] Ceftriaxone I F(I) [facility] URINE CULTURE - [facility] Cefuroxime R F(R) [facility] URINE CULTURE - [facility] Piperacillin/Tazob actam I F(I) [facility] URINE CULTURE - [facility] Trimethoprim/Sulfa S F(S) [facility] 02/04/2025 1:1 9 PM EDT 02/04/2025 1:29 PM EDT Narrative FOSTEREMILY - 02/07/2025 12:32 PM EDT us Generic External Data Provider LAB BLOOD ORDERAB LES Final Result LOULOU [facility] * XR ABDOMEN 1V (02/02/2025 10:30 AM EDT) Anatomical Region Laterality Modality Other 02/02/2025 10:3 0 AM EDT Narrative 02/02/2025 10:33 AM EDT [address] [place] [address] XRay Report Signed Patient: WILDA SEN MR#: [id number] : 1945 Acct:[id number] Age/Sex: 79 / F ADM Date: 02/02/25 Loc: [facility] Attending Dr: Williams Shepherd M.D. Ordering Physician: Williams Shepherd M.D. Date of Service: 02/02/25 Procedure(s): XR abdomen 1V Accession Number(s): [id number] cc: Williams Shepherd M.D.; FAYE PEREZ [address] [address] Patient Name: WILDA SEN MRN: [id number] date: 1945 Sex: F Assigned Patient Location: [facility] Current Patient Location: [facility] Accession/Order Number: [id number] Exam Date: 02/02/2025 10:29 Report Date: 02/02/2025 10:30 At the request of: WILLIAMS SHEPHERD MD Procedure: XR abdomen 1V KUB: [...] Jr., D.O. 02/02/2025 10:30 AM Dictation Location: [place] [address] Electronically authenticated by: [id number] Y Date: 02/02/2025 10:30 Dictated By: Kevan Zhou M.D. Signed By: 02/02/25 1033 DD/ 1030 TD/TT: Otolaryngology Teacher: Procedure Note Radiology, Radiologist, - 02/02/[address] [address] XRay Report Signed Patient: WILDA SNE JMR#: [id number] : 1945cct:[id number] Age/Sex: 79 / FADM Date: 02/02/25 Loc: RAD Attending Dr: Williams Shepherd M.D. Ordering Physician: Williams Shepherd M.D. Date of Service: 02/02/25 Procedure(s): XR abdomen 1V Accession Number(s): [id number] cc: Williams Shepherd M.D.; FAYE PEREZ [address] [address] Patient Name: WILDA SEN MRN: [id number] date: 1945 Sex: F Assigned Patient Location: [facility] Current Patient Location: [facility] Accession/Order Number: [id number] Exam Date: 02/02/2025 10:29 Report Date: 02/02/2025 10:30 At the request of: WILLIAMS SHEPHERD MD Procedure: XR abdomen 1V KUB: [...] Jr., D.O. 02/02/2025 10:30 AM Dictation Location: [place] [address] Electronically authenticated by: [id number] Y Date: 0:30 Dictated By: Kevan Zhou M.D. Signed By:02/02/25 1033 DD/ 1030 TD/TT: Otolaryngology Teacher: us Generic External Data Provider CLINISYNC IMAGING Final Result * BLOOD CULTURE 2 (01/31/2025 9:56 AM EDT) BLOOD CULTURE 2 Blood Culture 2 NG5D NO GROWTH AT 5 DAYS.^NO GROWTH AT 5 DAYS. TB 01/31/2025 9:56 AM EDT 01/31/2025 10:01 AM EDT Narrative CLINISYNC - 02/05/2025 2:29 PM EDT LF WRIST Generic External Data Provider LAB BLOOD ORDERAB LES Final Result [facility] BLOOD CULT[facility] 1 (01/31/2025 9:50 AM EDT) BLOOD CULTURE 1 Blood Culture 1 NG5D NO GROWTH AT 5 DAYS.^NO GROWTH AT 5 DAYS. [facility] 01/31/2025 9:50 AM EDT 01/31/2025 9:59 AM EDT Narrative CLINISYNC - 02/05/2025 2:28 PM EDT AC Taskdoer External Data Provider LAB BLOOD ORDERAB LES Final Result Performing Organization Address City/[facility]/ZIP Co de Phone Number LOULOU SEE * (ABNORMAL) [facility] CMP (CMP) (FOR REMOTE [facility] USE) (01/21/2025 1:58 PM EDT) SODIUM 144 136 - 145 mmol/L TBH POTASSIUM 4.2 3.5 - 5.1 mmol/L TBH CHLORIDE 106 98 - 107 mmol/L TBH CARBON DIOXIDE 29.3 21.0 - 32.0 mmol/L TBH ANION GAP 12.9 TBH GLUCOSE 115(H) 74 - 106 mg/dL TBH BLOOD UREA NITROGEN 21.0(H) 7.0 - 18.0 mg/dL TBH CREATININE 0.79 0.55 - 1.02 mg/dL TBH TBH EGFR-AF UGANDAN >60 >=60 mL/min/1. 73m 2 TBH TBH EGFR-NON AF UGANDAN >60 >=60 mL/min/1. 73m 2 TBH BUN [...] CLINISYNC F inal Result Performing Organization Address [facility] Co de Phone Number CLINISYNC [facility] * ALL SED RATE (01/21/2025 1:58 PM EDT) Pathologist [facility] SED RATE 7 <=30 mm/hr TB 01/21/2025 1:58 PM EDT 01/21/2025 1:59 PM EDT Narrative CLINISYNC - 01/21/2025 2:53 PM EDT Generic External Data Provider CLINISYNC F inal Result Performing Organization Address [facility] Co de Phone Number CLINISYNC TB * (ABNORMAL) ALL PHOSPHOROUS (01/21/2025 1:58 PM EDT) Pathologist [facility] PHOSPHORUS 2.0(L) 2.6 - 4.7 mg/dL TB 01/21/2025 1:58 PM EDT 01/21/2025 1:59 PM EDT Narrative CLINISYNC - 01/21/2025 3:07 PM EDT Generic External Data Provider CLINISYNC F inal Result Performing Organization Address [facility]/ZIP Co de Phone Number CLINISYNC [facility] * ALL MAGNESIUM (01/21/2025 1:58 PM EDT) MAGNESIUM 1.8 1.8 - 2.4 mg/dL TBH 01/21/2025 1:58 PM EDT 01/21/2025 1:59 PM EDT Narrative LOULOU - 01/21/2025 3:07 PM EDT us Generic External Data Provider CLINIS[facility]NC F inal Result [facility] * (ABNORMAL) ALL CBC WITH AUTO DIFF (01/21/2025 1:58 PM EDT) Pathologist [facility] TB WBC 7.0 4.0 - 11.0 10 3/uL TBH TB RBC 3.84(L) 4.20 - 5.40 10 6/uL TBH TBH HGB 12.0 12.0 - 16.0 g/dL TB TB HCT 37.0 36.0 - 48.0 % TBH TB MCV 96.4 81.0 - 99.0 fL TBH TB MCH 31.3 26.7 - 34.0 pg TBH TB MCHC 32.4 29.9 - 35.2 g/dL TB TB RDW 14.5 11.0 - 15.0 % TBH [...] PM EDT 01/21/2025 1:59 PM EDT Narrative FOSTERNC - 01/21/2025 2:50 PM EDT us Generic External Data Provider CLINSHERRINC F inal Result LOULOU TB * MR brain w and wo contrast [...] enhancement. ELECTRONICALLY SIGNED BY: Noé Elizondo MD Faye Perez MD IMG MRI PROCEDURES Final Res ult * (ABNORMAL) Hemoglobin A1c (02/03/2023 12:42 PM EDT) Blood Venous blood specimen / Unknown us Faye Perez MD LAB BLOOD ORDERABLES Final R esult Performing Organization Address City/[facility]/ZIP Co de Phone Number [facility]ST * Color Fundus Photography - OU - Both Eyes (05/14/2021 12:00 PM EDT) Anatomical Region Laterality Modality Head Fundus Photograp hy 05/14/2021 12:0 0 PM EDT Narrative 05/14/2021 12:00 PM EDT PERFORMED AT [facility] LOCATION:[id number] [facility] Procedure Note CONVERSION, GENERIC - 11/27/2022 PERFORMED AT [facility] LOCATION:[id number] [facility] Faye Perez MD OPHTH PHOTOGRAPHY Final Resu lt * MICROALBUMIN, URINE QUANT (09/13/2019 12:00 PM EST) GENERIC LEGACY COMPONENT INTERNAL 0-1,500 [facility] GENERIC LEGACY COMPONENT INTERNAL 75 [facility] 09/13/2019 12:0 0 PM EST us Faye Perez MD [facility] Final Result Performing Organization Address [facility] de Phone Number [facility] from Last 3 Months or Most Recently Relevant to Health Maintenance Insurance MEDICARE AET Care Teams Loss Control Engineer Relationship Specialty Start Date End Date Faye Perez MD [address] [place] [address] PCP - General Family Medicine 11/25/22 Faye Perez MD [address] [place] [address] PCP - ACO Reach 12/05/22 Mick Farmer DO [address] [place] [address] Referring Physician Ophthalmology 08/21/23 Renato Santacruz MD [address] [place] [address] Referring Physician Urology 08/21/23 Chuy Wood MD [address] [facility] [address] [place] [address] Referring Physician Rheumatology 08/21/23
--- OUTSIDE RECORDS SUMMARY | 2025-04-19 10:06 | XMS_ITS | Encounter Summary ---
Author Organization [facility] Address [address] [place] [address] Care Team Providers Care Can Top Setter Name Role Phone Jayme Parham MD Primary Care Provider [phone] Jayme Parham MD Unavailable [phone] Mick Farmer DO Unavailable [phone] Renato Santacruz MD Unavailable [phone] Chuy Wood MD Unavailable [phone] Rebeca Emerson Unavailable [phone] Encounter Details Date Type Department Care Team (Late st Contact Info) Description 08/14/2023 Abstract [facility] Family Medicine [address] [place] [address] Renato Santacruz MD [address] [place] [address] Social History Tobacco Use Types Packs/Day Years [...] often do you attend chur ch or alevism services? Never 12/11/2022 Active Member of Clubs [...] Patient Health Questionnaire-2 Score 0 02/06/2023 [facility] - [...] documented as of this encounter Care Teams Can Top Setter Relationship Specialty Start Date End Date Jayme Parham MD [address] [place] [address] PCP - General Family Medicine 11/25/22 Jayme Parham MD [address] [facility] [address] [place] [address] PCP - ACO Reach 12/05/22 Mick Farmer DO [address] [facility] [address] [place] [address] Referring Physician Ophthalmology 08/21/23 Renato Santacruz MD [address] [place] [address] Referring Physician Urology 08/21/23 Chuy Wood MD [address] [facility] Professional building [address] [place] [address] Referring Physician Rheumatology 08/21/23 Rebeca Emerson, DINA [address] [place] [address] Premium Auditor Family Medicine 03/04/25 03/11/25 documented as of this encounter
--- OUTSIDE RECORDS SUMMARY | 2025-04-19 10:06 | XMS_ITS | Encounter Summary ---
Author Organization [facility] Address [address] [place] [address] Care Team Providers Care Professor Criminal Justice Name Role Phone Jayme Parham MD Primary Care Provider [phone] Jayme Parham MD Unavailable [phone] Mick Farmer DO Unavailable [phone] Renato Santacruz MD Unavailable [phone] Chuy Wood MD Unavailable [phone] Rebeca Emerson Unavailable [phone] Encounter Details Date Type Department Care Team (Late st Contact Info) Description 08/14/2023 Orders Only [facility] [place] [facility] Family Medicine [address] [place] [address] Kimberly, [place], [place] Social History Tobacco Use [...] often do you attend chur ch or catholic services? Never 12/11/2022 Active Member of Clubs [...] Recorded Patient Health Questionnaire-2 Score 0 02/06/2023 [facility] - [...] documented as of this encounter Care Teams Professor Criminal Justice Relationship Specialty Start Date End Date Jayme Parham MD [address] [facility] 100 [place] [address] PCP - General Family Medicine 11/25/22 Jayme Parham MD [address] [facility] 100 [place] [address] PCP - ACO Reach 12/05/22 Mick Farmer DO [address] [place] [address] Referring Physician Ophthalmology 08/21/23 Renato Santacruz MD [address] [place] [address] Referring Physician Urology 08/21/23 Chuy Wood MD [address] [facility] Professional building 1 [place] [address] Referring Physician Rheumatology 08/21/23 Rebeca Emerson, DINA [address] [place], [place] [id number] Gerentological Physiotherapist Family Medicine 03/04/25 03/11/25 documented as of this encounter
--- OUTSIDE RECORDS SUMMARY | 2025-04-19 10:06 | XMS_ITS | Encounter Summary ---
Author Organization [facility] Address [address] [place] [address] Care Team Providers Care Canvass Manager Name Role Phone Jayme Parham MD Primary Care Provider Jayme Parham MD Unavailable [phone] Mick Farmer DO Unavailable [phone] Renato Santacruz MD Unavailable [phone] Chuy Wood MD Unavailable [phone] Rebeca Emerson ANATOMY TEACHER Unavailable [phone] Encounter Details Date Type Department Care Team (Late st Contact Info) Description 08/13/2023 Abstract [facility] Family Medicine [address] [place] [address] Jr Jarrell MD [address] [facility] Social History Tobacco Use Types Packs/Day [...] 02/06/2023 [facility] - [...] documented as of this encounter Care Teams Canvass Manager Relationship Specialty Start Date End Date Jayme Parham MD [address] [address] PCP - General Family Medicine 11/25/22 Jayme Parham MD [address] [address] PCP - ACO Reach 12/05/22 Mick Farmer DO [address] [place] [address] [address] [place] [address] Referring Physician Ophthalmology 08/21/23 Renato Santacruz MD [address] [place] [address] Referring Physician Urology 08/21/23 Chuy Wood MD [address] [facility] Professional building 1 [place] [address] Referring Physician Rheumatology 08/21/23 Rebeca Emerson, ANATOMY TEACHER [address] [place], [place] [id number] Card Assembler Family Medicine 03/04/25 03/11/25 documented as of this encounter
--- OUTSIDE RECORDS SUMMARY | 2025-04-19 10:07 | XMS_ITS | Encounter Summary ---
Author Organization [facility] Address [address] [place] [address] Care Team Providers Care Quality Liaison Name Role Phone Jayme Parham MD Primary Care Provider [phone] Jayme Parham MD Unavailable [phone] Mick Farmer DO Unavailable [phone] Renato Santacruz MD Unavailable [phone] Chuy Wood MD Unavailable [phone] Rebeca Emerson Unavailable [phone] Encounter Details Date Type Department Care Team (Late st Contact Info) Description 07/28/2023 Orders Only [facility] [place] 521 Family Medicine [address] [place] [address] Kimberly, [place], [place] Social History Tobacco Use Types Packs/Day Years [...] often do you attend chur ch or tenriism services? Never 12/11/2022 Active Member of Clubs [...] documented as of this encounter Care Teams Quality Liaison Relationship Specialty Start Date End Date Jayme Parham MD [address] [place] [address] PCP - General Family Medicine 11/25/22 Jayme Parham MD [address] [place] [address] PCP - ACO Reach 12/05/22 Mick Farmer DO [address] [place] [address] Referring Physician Ophthalmology 08/21/23 Renato Santacruz MD [address] [place] [address] Referring Physician Urology 08/21/23 Chuy Wood MD [address] [facility] Professional building 1 [place] [address] Referring Physician Rheumatology 08/21/23 Rebeca Emerson, DINA [address] [place] [address] Crushing Mill Operator Family Medicine 03/04/25 03/11/25 documented as of this encounter
--- OUTSIDE RECORDS SUMMARY | 2025-04-19 10:07 | XMS_ITS | Clinical Summary ---
Author Organization [facility] Address [address] [place] [address] Phone Care Team Providers Care Biomass Power Plant Superintendent Name Role Phone Jayme Parham MD Primary Care Provider [phone] Social History Tobacco Use Types Packs/Day Years Used Date Smoking Tobacco: Never Assessed Comments Unknown Sex and Gender Information Value Date Recorded Sex Assigned at Not on file Legal Sex Female 1:42 PM EST Gender Identity Not on file Sexual Orientation Not on file Plan of Treatment Not on file Care Teams Biomass Power Plant Superintendent Relationship Specialty Start Date End Date Jayme Parham MD [address] [place] [id number] PCP - General 11/21/14
--- OUTSIDE RECORDS SUMMARY | 2025-04-19 10:07 | XMS_ITS | Encounter Summary ---
Author Organization [facility] Address [address] [place] [address] Care Team Providers Care Sales Enablement Specialist Name Role Phone Jayme Parham MD Primary Care Provider Jayme Parham MD Unavailable [phone] Mick Farmer DO Unavailable [phone] Renato Santacruz MD Unavailable [phone] Chuy Wood MD Unavailable Rebeca Emerson AUTOMOBILE SERVICE STATION ATTENDANT Unavailable [phone] Encounter Details Date Type Department Care Team (Late st Contact Info) Description 03/05/2023 Orders Only [facility] [place] 521 Family Medicine [address] [place] [address] Jayme Parham MD 112 [facility] [address] [place] [address] Social History Tobacco Use Types [...] Recorded Patient Health Questionnaire-2 Score 0 02/06/2023 [facility] Occupat ional Health - Occupational [...] on filedocumented in this encounter Care Teams Sales Enablement Specialist Relationship Specialty Start Date End Date Jayme Parham MD [address] [place] [address] PCP - General Family Medicine 11/25/22 Jayme Parham MD [address] [place] [address] PCP - ACO Reach 12/05/22 Mick Farmer DO [address] [place] [address] Referring Physician Ophthalmology 08/21/23 Renato Santacruz MD [address] [place] [address] Referring Physician Urology 08/21/23 Chuy Wood MD [address] [facility] Professional building 1 [place] [address] Referring Physician Rheumatology 08/21/23 Rebeca Emerson, DINA [address] [place] [address] Associate Professor Of Art Family Medicine 03/04/25 03/11/25 documented as of this encounter
--- OUTSIDE RECORDS SUMMARY | 2025-04-19 10:07 | XMS_ITS | Encounter Summary ---
Author Organization [facility] Address [address] [place] [address] Care Team Providers Care Pharmacy Operations Manager Name Role Phone Jayme Parham MD Primary Care Provider Jayme Parham MD Unavailable [phone] Mick Farmer DO Unavailable [phone] Renato Santacruz MD Unavailable [phone] Chuy Wood MD Unavailable Rebeca Emerson Unavailable [phone] Encounter Details Date Type Department Care Team (Late st Contact Info) Description 04/19/2024 Orders Only [facility] [place] 100 Family Medicine 112 [facility] [address] [place] [address] Jayme Parham MD 112 [facility] 100 [place] [address] Social History Tobacco Use Types Packs/Day Years [...] attend chur ch or hinduism services? Never 04/08/2024 Do you belong to [...] Recorded Patient Health Questionnaire-2 Score 0 02/06/2023 [facility] of Occupat ional Health - Occupational Stress [...] any time in the past 12 m [facility], were you homeless or living in a [...] documented as of this encounter Care Teams Pharmacy Operations Manager Relationship Specialty Start Date End Date Jayme Parham MD [address] [place] [address] PCP - General Family Medicine 11/25/22 Jayme Parham MD 112 [facility] [address] [place] [address] PCP - ACO Reach 12/05/22 Mick Farmer DO [address] [place] [address] Referring Physician Ophthalmology 08/21/23 Renato Santacruz MD [address] [place] [address] Referring Physician Urology 08/21/23 Chuy Wood MD [address] [facility] Professional building 1 [place] [address] Referring Physician Rheumatology 08/21/23 Rebeca Emerson, DINA [address] [place] [address] Industrial Insulator Family Medicine 03/04/25 03/11/25 documented as of this encounter
--- OUTSIDE RECORDS SUMMARY | 2025-04-19 10:07 | XMS_ITS | Encounter Summary ---
Author Organization [facility] Address [address] [place] [address] Care Team Providers Care Structures Assembler Name Role Phone Jayme Parham MD Primary Care Provider Jayme Parham MD Unavailable [phone] Mick Farmer DO Unavailable [phone] Renato Santacruz MD Unavailable [phone] Chuy Wood MD Unavailable [phone] Encounter Details Date Type Department Care Team (Late st Contact Info) Description 04/05/2025 Clinisync Result Encounter [facility] External Department Unsolicited Jayme Parham MD [address] [place], [place] [address] Social History Tobacco Use Types Packs/Day Years [...] often do you attend chur ch or synagogue services? Never 04/08/2024 Do you belong to any clubs o r organizations such as spiritism groups, unions, fraternal or athletic groups, or [...] Recorded Patient Health Questionnaire-2 Score 0 11/04/2024 [facility] of Occupat ional Health - [...] W/O COUM Routine 04/05/2025 11:20 AM EDT documented in this encounter Results * (ABNORMAL) [facility] PROTHROMBIN TIME INR W/O COUM (04/05/2025 11:20 AM EDT) PROTHROMBIN TIME 19.6(H) 9.0 - 11.6 sec TBH TBH INR 1.98 TBH Comment: DESIRED INR: 2.0-3.0 CONDITIONS NOT LISTED BELOW 2.5-3.5 FOR PROSTHETIC HEART VALVE REPLACEMENT 2.5-3.5 RECURRENT THROMBOSIS 04/05/2025 11:2 0 AM EDT 04/05/2025 11:26 AM EDT Narrative [facility] - 04/05/2025 11:55 AM EDT Jayme Parham MD [facility] Final [facility] documented in this encounter Visit Diagnoses Not on filedocumented in this encounter Additional Health Concerns Assessment Noted Time PHQ-9 Depression Total Score: 7 11/05/19 25 1:00 PM EDT documented as of this encounter Care Teams Structures Assembler Relationship Specialty Start Date End Date Jayme Parham MD [address] [address] PCP - General Family Medicine 11/25/22 Jayme Parham MD 112 [facility] 100 [place] [address] PCP - ACO Reach 12/05/22 Mick Farmer DO [address] [place] [address] Referring Physician Ophthalmology 08/21/23 Renato Santacruz MD [address] [place] [address] Referring Physician Urology 08/21/23 Chuy Wood MD [address] [facility] Professional building [address] [place] [address] Referring Physician Rheumatology 08/21/23 documented as of this encounter
--- OUTSIDE RECORDS SUMMARY | 2025-04-19 10:07 | XMS_ITS | Encounter Summary ---
Author Organization [facility] Address [address] [facility] [place] [address] Care Team Providers Care Performance Improvement Manager Name Role Phone Jayme Parham MD Primary Care Provider Jayme Parham MD Unavailable [phone] Mick Farmer DO Unavailable [phone] Renato Santacruz MD Unavailable [phone] Chuy Wood MD Unavailable Rebeca Emerson Unavailable [phone] Encounter Details Date Type Department Care Team (Late st Contact Info) Description 01/21/2024 Orders Only [facility] [place] 100 Family Medicine [address] [address] Chuy Wood MD [address] [facility] Professional building 1 [place] [address] Social History Tobacco Use Types Packs/Day Years [...] often do you attend chur ch or evangelical services? Never 12/11/2022 Active Member [...] Health Questionnaire-2 Score 0 02/06/2023 [facility] of Occupat iontn Health - Occupational Stress Questionnaire Answer Date [...] documented as of this encounter Care Teams Performance Improvement Manager Relationship Specialty Start Date End Date Jayme Parham MD [address] [place] [address] PCP - General Family Medicine 11/25/22 Jayme Parham MD [address] [place] [address] PCP - ACO Reach 12/05/22 Mick Farmer DO [address] [place] [address] Referring Physician Ophthalmology 08/21/23 Renato Santacruz MD [address] [place], [place] [address] Referring Physician Urology 08/21/23 Chuy Wood MD [address] [facility] Professional building 1 [place] [address] Referring Physician Rheumatology 08/21/23 Rebeca Emerson, CAMPAIGN MANAGER [address] [place], [place] [address] Salesperson Used Cars Family Medicine 03/04/25 03/11/25 documented as of this encounter
--- OUTSIDE RECORDS SUMMARY | 2025-04-19 10:07 | XMS_ITS | Encounter Summary ---
Author Organization [facility] Address [address] [place] [address] Care Team Providers Care Television Repairman Name Role Phone Jayme Parham MD Primary Care Provider Jayme Parham MD Unavailable [phone] Mick Farmer DO Unavailable [phone] Renato Santacruz MD Unavailable [phone] Chuy Wood MD Unavailable [phone] Rebeca Emerson FACILITY SERVICE ASSOCIATE Unavailable [phone] Encounter Details Date Type Department Care Team (Late st Contact Info) Description 03/19/2023 Abstract [facility] [place] 521 Family Medicine [address] [place] [address] Jayme Parham MD 112 [facility] [address] [place], [place] [address] Social History Tobacco Use Types Packs/Day Years [...] often do you attend chur ch or mormonism services? Never 12/11/2022 Active Member of Clubs [...] Health Questionnaire-2 Score 0 02/06/2023 [facility] of Occupat ional Health - Occupational [...] on filedocumented in this encounter Care Teams Television Repairman Relationship Specialty Start Date End Date Jayme Parham MD [address] [address] PCP - General Family Medicine 11/25/22 Jayme Parham MD [address] [address] PCP - ACO Reach 12/05/22 Mick Farmer DO [address] [place] [address] Referring Physician Ophthalmology 08/21/23 Renato Santacruz MD [address] [address] Referring Physician Urology 08/21/23 Chuy Wood MD [address] [facility] Professional building 1 [place] [address] Referring Physician Rheumatology 08/21/23 Rebeca Emerson, DINA [address] [place], [place] [address] [employer] And [employer]ank Department Supervisor Family Medicine 03/04/25 03/11/25 documented as of this encounter
--- OUTSIDE RECORDS SUMMARY | 2025-04-19 10:07 | XMS_ITS | Encounter Summary ---
Author Organization [facility] Address [address] [place] [address] Care Team Providers Care Irb Compliance Coordinator Name Role Phone Jayme Parham MD Primary Care Provider [phone] Jayme Parham MD Unavailable [phone] Mick Farmer DO Unavailable [phone] Renato Santacruz MD Unavailable [phone] Chuy Wood MD Unavailable [phone] Rebeca Emerson Unavailable [phone] Encounter Details Date Type Department Care Team (Late st Contact Info) Description 07/17/2023 Abstract [facility] [place] 521 Family Medicine 521 [place] [address] Alban Montilla MD [address] [place], [place] [address] Social History Tobacco Use Types Packs/Day Years [...] documented as of this encounter Care Teams Irb Compliance Coordinator Relationship Specialty Start Date End Date Jayme Parham MD 112 [address] [place] [address] PCP - General Family Medicine 11/25/22 Jayme Parham MD [address] [place] [address] [place] [address] PCP - ACO Reach 12/05/22 Mick Farmer DO [address] [place] [address] Referring Physician Ophthalmology 08/21/23 Renato Santacruz MD [address] [place] [address] Referring Physician Urology 08/21/23 Chuy Wood MD [address] [facility] Professional building 1 [place] [address] Referring Physician Rheumatology 08/21/23 Rebeca Emerson, SVP [employer] [address] [place], [place] [address] Mill Platform Supervisor Family Medicine 03/04/25 03/11/25 documented as of this encounter
--- OUTSIDE RECORDS SUMMARY | 2025-04-19 10:07 | XMS_ITS | Encounter Summary ---
Author Organization [facility] Address [address] [facility] [place] [address] Care Team Providers Care Corporate Director Of Pharmacy Name Role Phone Jayme Parham MD Primary Care Provider Jayme Parham MD Unavailable [phone] Mick Farmer DO Unavailable [phone] Renato Santacruz MD Unavailable [phone] Chuy Wood MD Unavailable Rebeca Emerson Unavailable [phone] Encounter Details Date Type Department Care Team (Late st Contact Info) Description 07/28/2023 Abstract [facility] [place] 521 Family Medicine [address] [place] [address] Lou Glover, LIBRARY SERVICES ASSISTANT [address] [facility] [place] [address] Social History Tobacco Use Types [...] documented as of this encounter Care Teams Corporate Director Of Pharmacy Relationship Specialty Start Date End Date Jayme Parham MD [address] [address] PCP - General Family Medicine 11/25/22 Jayme Parham MD [address] [address] [place] [address] PCP - ACO Reach 12/05/22 Mick Farmer DO 278 [facility] [address] [place] [address] Referring Physician Ophthalmology 08/21/23 Renato Santacruz MD [address] [place] [address] Referring Physician Urology 08/21/23 Chuy Wood MD [address] [facility] Professional building 1 [place] [address] Referring Physician Rheumatology 08/21/23 Rebeca Emerson, BELT SEWER [address] [place] [address] Director Clinical Data Family Medicine 03/04/25 03/11/25 documented as of this encounter
--- OUTSIDE RECORDS SUMMARY | 2025-04-19 10:07 | XMS_ITS | Encounter Summary ---
Author Organization [facility] Address [address] [place] [address] Care Team Providers Care Garden Machinery Mechanic Name Role Phone Jayme Perez MD Primary Care Provider [phone] Jayme Perez MD Unavailable [phone] Mick Farmer DO Unavailable [phone] Renato Santacruz MD Unavailable [phone] Chuy Wood MD Unavailable Rebeca Emerson Unavailable [phone] Encounter Details Date Type Department Care Team (Late st Contact Info) Description 04/23/2024 Clinisync Result Encounter [facility] External Department Unsolicited Jayme Perez MD 112 [facility] [address] [place] [address] Social History Tobacco Use Types Packs/Day Years [...] How often do you attend chur or yarsani services? Never 04/08/2024 Do you belong to [...] AM EDT Narrative 04/23/2024 4:48 AM EDT [place] [id number] CT Scan Report Signed Patient: WILDA SEN MR#: [id number] : 1945 Acct:[id number] Age/Sex: 79 / F ADM Date: 04/22/24 Loc: LAB Attending Dr: JAYME PEREZ Ordering Physician: JAYME PEREZ Date of Service: 04/22/24 Procedure(s): CT abdomen pelvis w con Accession Number(s): [id number] cc: JAYME PEREZ [address] [address] Patient Name: WILDA SEN MRN: [id number] date: 1945 Sex: F Assigned Patient Location: LAB Current Patient Location: Accession/Order Number: [id number] Exam Date: 04/22/2024 12:40 Report Date: 04/23/2024 [...] M.D. Signed By: 04/23/24447 DD/ 4 TD/TT: Leak Detection Engineer: Procedure Note Radiology, Radiologist, MD - 04/23/2024 [place] [address] CT Scan Report Signed Patient: WILDA SEN R#: [id number] : 1945cct:[id number] Age/Sex: 79 / FADM Date: 04/22/24 Loc: LAB Attending Dr: JAYME PEREZ Ordering Physician: JAYME PEREZ Date of Service: 04/22/24 Procedure(s): CT abdomen pelvis w con Accession Number(s): [id number] cc: JAYME PEREZ [place] [id number] Patient Name: WILDA SEN MRN: [id number] date: 1945 Sex: F Assigned Patient Location: LAB Current Patient Location: Accession/Order Number: [id number] Exam Date: 04/22/2024 12:40 Report Date: 04/23/2024 [...] Garay M.D. Signed By:04/23/24447 DD/ 4 TD/TT: Leak Detection Engineer: us Jayme Perez MD [facility]AG[facility] Final Resu lt documented in this encounter Visit Diagnoses Not on filedocumented in this encounter Additional Health Concerns Assessment Noted Time PHQ-9 Depression Total Score: 7 05/22/20 23 2:00 PM EST documented as of this encounter Care Teams Garden Machinery Mechanic Relationship Specialty Start Date End Date Jayme Perez MD [address] [place] [address] PCP - General Family Medicine 11/25/22 Jayme Perez MD [address] [place] [address] PCP - ACO Reach 12/05/22 Mick Farmer DO [address] [place] [address] Referring Physician Ophthalmology 08/21/23 Renato Santacruz MD 290 [place], [place] [address] Referring Physician Urology 08/21/23 Chuy Wood MD [address] [facility] Professional building 1 [place] [address] Referring Physician Rheumatology 08/21/23 Rebeca Emerson, SUPERVISOR [employer] [address] [place] [address] Chemical Operations Specialist Family Medicine 03/04/25 03/11/25 documented as of this encounter
--- OUTSIDE RECORDS SUMMARY | 2025-04-19 10:07 | XMS_ITS | Clinical Summary ---
Author Organization [facility] Address [address] [place] [address] Care Team Providers Care Business Analytics Specialist Name Role Phone Unavailable Primary Care Provider [...] COVID-19 Vaccine ( - 2023-2 5 season) 2025 Influenza Vaccine (#1) 2025 HIB Vaccines Aged [...] age to complete this topic Insurance MEDICARE AET
--- OUTSIDE RECORDS SUMMARY | 2025-04-19 10:07 | XMS_ITS | Encounter Summary ---
Author Organization [facility] Address [address] [place] [address] Care Team Providers Care Professional Athlete Name Role Phone Jayme Parham MD Primary Care Provider Jayme Parham MD Unavailable [phone] Mick Farmer DO Unavailable [phone] Renato Santacruz MD Unavailable [phone] Chuy Wood MD Unavailable Reason for Visit * Reason Onset Date Comments Results 04/05/2025 Encounter Details Date Type Department Care Team (Late st Contact Info) Description 04/05/2025 Results Follow-Up [place] [address] Family Medicine 112 [facility] 100 [place] [address] Jayme Parham MD 112 [facility] 100 [place] [address] SR[facility] PROTHROMBIN TIME INR W/O COUM Social History Tobacco Use Types Packs/Day Years [...] week 04/08/2024 How often do you attend [facility] or buddhist services? Never 04/08/2024 Do you belong to [...] Recorded Patient Health Questionnaire-2 Score 0 11/04/[address] [facility] - Occupational Stress [...] in a fci (including now)? No 12/11/2022 Housing Stability Vital Sign Answer Stefan e Recorded In the last 12 months, was t here a time when you were not able to pay the mortgage or rent on time? No 04/08/2024 In the past 12 months, how m any times have you moved where you were living? 0 04/08/2024 At any time in the past 12 m [facility], were you homeless or living in a fci (including now)? No 04/08/2024 Education Answer Date [...] encounter Miscellaneous Notes * Telephone Encounter - Magalis Harris MA - 04/05/2025 2:51 PM EDT Patient was notified and verbalized understanding. He/She knows to contact office with any further questions. * Telephone Encounter - Magalis Harris MA - 04/05/2025 2:49 PM EDT ----- Message from Jayme Parham MD sent at 04/05/2025 1:02 PM EDT ----- ----- Message ----- From: Interface, Lab Results In Sent: 04/05/2025 11:57 AM EDT To: Jayme Parham MD * Telephone Encounter - Jayme Parham MD - 04/05/2025 12:49 PM EDT Her INR is 2 100ths below therapeutic. I would just stay at her current dosing, and recheck an INR in 2 weeks. documented in this encounter Plan of Treatment Not on file documented as of this encounter Visit Diagnoses Not on filedocumented in this encounter Additional Health Concerns Assessment Noted Time PHQ-9 Depression Total Score: 7 11/05/19 25 1:00 PM EDT documented as of this encounter Care Teams Professional Athlete Relationship Specialty Start Date End Date Jayme Parham MD [address] [address] PCP - General Family Medicine 11/25/22 Jayme Parham MD [address] [address] PCP - ACO Reach 12/05/22 Mick Farmer DO 278 [facility] [address] [place] [address] Referring Physician Ophthalmology 08/21/23 Renato Santacruz MD [address] [place] [phone] Referring Physician Urology 08/21/23 Chuy Wood MD [address] [facility] Professional building 1 [place] [address] Referring Physician Rheumatology 08/21/23 documented as of this encounter
--- OUTSIDE RECORDS SUMMARY | 2025-04-19 10:07 | XMS_ITS | Encounter Summary ---
Author Organization [facility] Address [address] [place] [address] Care Team Providers Care Drinking Water Technician Name Role Phone Jayme Parham MD Primary Care Provider [phone] Jayme Parham MD Unavailable [phone] Mick Farmer DO Unavailable [phone] Renato Santacruz MD Unavailable [phone] Chuy Wood MD Unavailable [phone] Rebeca Emerson Unavailable [phone] Encounter Details Date Type Department Care Team (Late st Contact Info) Description 07/16/2023 Orders Only [facility] [place] 521 Family Medicine [address] [place] [address] Jayme Parham MD 112 [facility] [address] [place] [address] Acute cough (Primary Dx); Chronic [...] often do you attend chur ch or shinto services? Never 12/11/2022 Active Member of Clubs [...] Recorded Patient Health Questionnaire-2 Score 0 02/06/2023 [facility] of Occupat ional Health - Occupational Stress [...] documented as of this encounter Care Teams Drinking Water Technician Relationship Specialty Start Date End Date Jayme Parham MD [address] [place] [address] PCP - General Family Medicine 5/15/23 Jayme Parham MD [address] [place] [address] PCP - ACO Reach 12/05/22 Mick Farmer DO [address] [place] [address] Referring Physician Ophthalmology 08/21/23 Renato Santacruz MD [address] [place] [address] Referring Physician Urology 08/21/23 Chuy Wood MD [address] [facility] Professional building 1 [place] [address] Referring Physician Rheumatology 08/21/23 Rebeca Emerson, DINA [address] [place] [address] Car Sealer Family Medicine 03/04/25 03/11/25 documented as of this encounter
--- OUTSIDE RECORDS SUMMARY | 2025-04-19 10:07 | XMS_ITS | Encounter Summary ---
Author Organization [facility] Address [address] [place] [address] Care Team Providers Care Chemical Plant Operator Name Role Phone Jayme Perez MD Primary Care Provider [phone] Jayme Perez MD Unavailable [phone] Mick Farmer DO Unavailable [phone] Renato Santacruz MD Unavailable [phone] Radames Wood MD Unavailable [phone] Rebeca Emerson Unavailable [phone] Encounter Details Date Type Department Care [...] often do you attend chur ch or taoist services? Never 12/11/2022 Active Member of Clubs [...] Questionnaire-2 Score 0 02/06/2023 [facility] Answer [...] EDT Narrative 01/14/2024 3:53 PM EDT The [address] [address] XRay Report Signed Patient: WILDA SEN MR#: [id number] : 1945 Acct:[id number] Age/Sex: 78 / F ADM Date: 07/03/24 Loc: RAD Attending Dr: RADAMES WOOD Ordering Physician: RADAMES WOOD Date of Service: 01/14/24 Procedure(s): XR DEXA axial skeleton Accession Number(s): [id number] cc: JAYME PEREZ ; RADAMES WOOD [address] [address] Patient Name: WILDA SEN MRN: [id number] date: 1945 Sex: F Assigned Patient Location: [facility] Current Patient Location: RAD Accession/Order Number: [id number] Exam Date: 01/14/2024 12:48 Report Date: 01/14/2024 [...] prevention and treatment of osteoporosis. Osteoporos Int. 2021;33(10):2735-1882. doi: 10.1007/p47621-615-87043-q. Epub 2021Nov 08. Erratum in: Osteoporos Int. 2021Feb 07;: PMID: [id number]; PMCID: [id number]. Electronically authenticated by: VARGHESE GARAY Date: 01/14/2024 15:50 Dictated By: Varghese Garay M.D. Signed By: 01/14/24 1553 DD/ 1550 TD/TT: Greenhouse Or Nursery Transplanter: Procedure Note Radiology, Radiologist, - 01/14/2024 The [place] [id number] XRay Report Signed Patient: WILDA SEN R#: [id number] : 1945cct:[id number] Age/Sex: 78 / FADM Date: 01/14/24 Loc: RAD Attending Dr: RADAMES WOOD Ordering Physician: RADAMES WOOD Date of Service: 01/14/24 Procedure(s): XR DEXA axial skeleton Accession Number(s): [id number] cc: JAYME PEREZ MATTHEW The [address] [address] Patient Name: WILDA SEN MRN: [id number] date: 1945 Sex: F Assigned Patient Location: RAD Current Patient Location: RAD Accession/Order Number: [id number] Exam Date: 01/14/2024 12:48 Report Date: 01/14/2024 [...] 10-year hip fracture risk >= 3% or [id number] major osteoporosis-related fracture risk >= 20% (i.e., [...] to prevention and treatment of osteoporosis.Osteoporos Int. 2021;33(10):4979-0844. doi: 10.1007/[id number]-y. Epub . Erratum in: Osteoporos Int. 2021Feb 07;: PMID: [id number]; PMCID: [id number]. Electronically authenticated by: VARGHESE GARAY Date: 01/14/2024 15:50 Dictated By: Varghese Garay M.D. Signed By:01/14/24 1553 DD/ 1550 TD/TT: Greenhouse Or Nursery Transplanter: us Generic External Data Provider [facility] Final Result documented in this encounter Visit Diagnoses Not on filedocumented in this encounter Additional Health Concerns Assessment Noted Time PHQ-9 Depression Total Score: 7 05/22/20 23 2:00 PM EST documented as of this encounter Care Teams Chemical Plant Operator Relationship Specialty Start Date End Date Jayme Perez MD [address] [address] PCP - General Family Medicine 11/25/22 Jayme Perez MD [address] [address] PCP - ACO Reach 12/05/22 Mick Farmer DO [address] [place], [place] [address]ct e [address] [place] [address] Referring Physician Ophthalmology 08/21/23 Renato Santacruz MD [address] [place] [address] Referring Physician Urology 08/21/23 Radames Wood MD [address] [facility] Professional building 1 [place] [address] Referring Physician Rheumatology 08/21/23 Rebeca Emerson, DINA [address] [place] [address] Heading Machine Operator Family Medicine 03/04/25 03/11/25 documented as of this encounter
--- OUTSIDE RECORDS SUMMARY | 2025-04-19 10:07 | XMS_ITS | Encounter Summary ---
Author Organization [facility] Address [address] [place] [address] Care Team Providers Care Inclinometer Tester Name Role Phone Jayme Perez MD Primary Care Provider [phone] Jayme Perez MD Unavailable [phone] Mick Farmer DO Unavailable [phone] Renato Santacruz MD Unavailable [phone] Chuy Wood MD Unavailable [phone] Rebeca Emerson Unavailable [phone] Encounter Details Date Type Department Care [...] How often do you attend chur or hinduism services? Never 04/08/2024 Do you [...] Recorded Patient Health Questionnaire-2 Score 0 02/06/2023 [facility] - Occupational Stress Questionnaire Answer Date [...] PM EST Narrative 07/05/2024 11:22 [place] [address] XRay Report Signed Patient: WILDA SEN MR#: [id number] : 1945 Acct:[id number] Age/Sex: 79 / F ADM Date: 07/05/24 Loc: RAD Attending Dr: Williams Jackson M.D. Ordering Physician: Williams Jackson M.D. Date of Service: 07/05/24 Procedure(s): XR abdomen 1V Accession Number(s): [id number] cc: Williams Jackson M.D.; JAYME PEREZ [place] [address] Patient Name: WILDA SEN MRN: [id number] date: 1945 Sex: F Assigned Patient Location: [facility] Current Patient Location: [facility] Accession/Order Number: [id number] Exam Date: 07/05/2024 09:18 Report Date: 07/05/2024 [...] M.D. Signed By: 07/05/242321 DD/ 18 TD/TT: Rn Acute Dialysis: Procedure Note Radiology, Radiologist, - 07/05/2024 [place] [address] XRay Report Signed Patient: WILDA SEN JMR#: [id number] : 1945cct:[id number] Age/Sex: 79 / FADM Date: 07/05/24 Loc: RAD Attending Dr: Williams Jackson M.D. Ordering Physician: Williams Jackson M.D. Date of Service: 07/05/24 Procedure(s): XR abdomen 1V Accession Number(s): [id number] cc: Williams Jackson M.D.; JAYME PEREZ [place] [address] Patient Name: WILDA SEN MRN: [id number] date: 1945 Sex: F Assigned Patient Location: [facility] Current Patient Location: [facility] Accession/Order Number: [id number] Exam Date: 07/05/2024 09:18 Report Date: 07/05/2024 [...] Garay M.D. Signed By:07/05/242321 DD/ 18 TD/TT: Rn Acute Dialysis: us Generic External Data Provider [facility] Final Result documented in this encounter Visit Diagnoses Not on filedocumented in this encounter Additional Health Concerns Assessment Noted Time PHQ-9 Depression Total Score: 7 05/22/20 23 2:00 PM EST documented as of this encounter Care Teams Inclinometer Tester Relationship Specialty Start Date End Date Jayme Perez MD [address] [place] [address] (Fax) PCP - General Family Medicine 11/25/22 Jayme Perez MD [address] [place] [address] PCP - ACO Reach 12/05/22 Mick Farmer DO [address] [place] [address] Referring Physician Ophthalmology 08/21/23 Renato Santacruz MD [address] [place] [address] Referring Physician Urology 08/21/23 Chuy Wood MD [address] [facility] Professional building 1 [place] [address] Referring Physician Rheumatology 08/21/23 Rebeca Emerson, CAFETERIA COUNTER ATTENDANT [address] [place] [address] Housecalls Nurse Family Medicine 03/04/25 03/11/25 documented as of this encounter
--- OUTSIDE RECORDS SUMMARY | 2025-04-19 10:07 | XMS_ITS | Encounter Summary ---
Author Organization [facility] Address [address] [place] [address] Care Team Providers Care Web Merchandiser Name Role Phone Jayme Parham MD Primary Care Provider [phone] Jayme Parham MD Unavailable [phone] Mick Farmer DO Unavailable [phone] Renato Santacruz MD Unavailable [phone] Chuy Wood MD Unavailable Rebeca Emerson TELLER SUPERVISOR Unavailable [phone] Encounter Details Date Type Department Care Team (Late st Contact Info) Description 02/11/2023 Orders Only [facility] [place] 521 Family Medicine [address] [place] [address] Jayme Parham MD 112 [facility] [address] [place], [place] [address] Social History Tobacco Use Types Packs/Day Years [...] often do you attend chur ch or spiritism services? Never 12/11/2022 Active Member of Clubs [...] on filedocumented in this encounter Care Teams Web Merchandiser Relationship Specialty Start Date End Date Jayme Parham MD [address] [place] [address] PCP - General Family Medicine 11/25/22 Jayme Parham MD [address] [place] [address] PCP - ACO Reach 12/05/22 Mick Farmer DO [address] [place] [address] Referring Physician Ophthalmology 08/21/23 Renato Santacruz MD 290 [place] [address] Referring Physician Urology 08/21/23 Chuy Wood MD [address] [facility] Professional building [address] [place] [phone] Referring Physician Rheumatology 08/21/23 Rebeca Emerson, TELLER SUPERVISOR [address] [place], [place] [address] Computer Tester Family Medicine 03/04/25 03/11/25 documented as of this encounter
--- OUTSIDE RECORDS SUMMARY | 2025-04-19 10:07 | XMS_ITS | Encounter Summary ---
Author Organization [facility] Address [address] [place] [address] Care Team Providers Care Product Safety Head Name Role Phone Jayme Parham MD Primary Care Provider [phone] Jayme Parham MD Unavailable [phone] Mick Farmer DO Unavailable [phone] Renato Santacruz MD Unavailable [phone] Chuy Wood MD Unavailable [phone] Rebeca Emerson Unavailable [phone] Encounter Details Date Type Department Care Team (Late st Contact Info) Description 01/13/2025 Orders Only [facility] [place] 100 Family [address] [place] [address] Kimberly, October, MA Vertigo; 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 [...] How often do you attend chur or denominational services? Never 04/08/2024 Do you belong to [...] Recorded Patient Health Questionnaire-2 Score 0 11/04/2024 [facility] [place] of Occupat ional Health - Occupational Stress [...] any time in the past 12 m [facility], were you homeless or living [...] documented as of this encounter Care Teams Product Safety Head Relationship Specialty Start Date End Date Jayme Parham MD [address] [place] [address] PCP - General Family Medicine 11/25/22 Jayme Parham MD 112 [facility] [address] [place] [address] PCP - ACO Reach 12/05/22 Mick Farmer DO [address] [place] [address] Referring Physician Ophthalmology 08/21/23 Renato Santacruz MD 290 [place] [address] Referring Physician Urology 08/21/23 Chuy Wood MD [address] [facility] Professional building 1 [place] [address] Referring Physician Rheumatology 08/21/23 Rebeca Emerson, DINA [address] [place] [address] Senior Climate Advisor Family Medicine 03/04/25 03/11/25 documented as of this encounter
--- OUTSIDE RECORDS SUMMARY | 2025-04-19 10:07 | XMS_ITS | Encounter Summary ---
Author Organization [facility] Address [address] [place] [address] Care Team Providers Care Hospice Educator Name Role Phone Jayme Parham MD Primary Care Provider Jayme Parham MD Unavailable [phone] Mick Farmer DO Unavailable [phone] Renato Santacruz MD Unavailable [phone] Chuy Wood MD Unavailable [phone] Rebeca Emerson Unavailable [phone] Encounter Details Date Type Department Care Team (Late st Contact Info) Description 07/16/2023 Orders Only [facility] 521 Family Medicine [address] [place] [address] Alban Montilla MD [address] [place], [place] [address] Social History Tobacco Use Types Packs/Day Years [...] often do you attend chur ch or adventism services? Never 12/11/2022 Active Member of Clubs [...] Recorded Patient Health Questionnaire-2 Score 0 02/06/2023 [facility] of Occupat ional Health [...] documented as of this encounter Care Teams Hospice Educator Relationship Specialty Start Date End Date Jayme Parham MD [address] [place] [address] PCP - General Family Medicine 11/25/22 Jayme Parham MD [address] [place] [address] PCP - ACO Reach 12/05/22 Mick Farmer DO [address] [place] [address] Referring Physician Ophthalmology 08/21/23 Renato Santacruz MD 290 [place] [address] Referring Physician Urology 08/21/23 Chuy Wood MD [address] [facility] Professional building 1 [place] [address] Referring Physician Rheumatology 08/21/23 Rebeca Emerson, DINA [address] [place] [address] Injection Molding Machine Offbearer Family Medicine 03/04/25 03/11/25 documented as of this encounter
--- OUTSIDE RECORDS SUMMARY | 2025-04-19 10:07 | XMS_ITS | Encounter Summary ---
Author Organization [facility] Address [address] [place] [address] Care Team Providers Care Resident Services Manager Name Role Phone Jayme Parham MD Primary Care Provider Jayme Parham MD Unavailable [phone] Mick Farmer DO Unavailable [phone] Renato Santacruz MD Unavailable [phone] Chuy Wood MD Unavailable Rebeca Emerson LENS INSPECTOR Unavailable [phone] Encounter Details Date Type Department Care Team (Late st Contact Info) Description 01/27/2023 Orders Only [facility] [place] 521 Family Medicine [address] [place] [address] Jayme Parham MD 112 [facility] [address] [place] [address] Social History Tobacco Use Types [...] often do you attend chur ch or islam services? Never 12/11/2022 Active Member of Clubs [...] Recorded Patient Health Questionnaire-2 Score 0 12/12/2022 [facility] of Occupat ional Health - [...] EDT) Blood Venous blood specimen / Unknown Jyame Parham MD LAB BLOOD ORDERABLES Final R esult documented in this encounter Visit Diagnoses Not on filedocumented in this encounter Care Teams Resident Services Manager Relationship Specialty Start Date End Date Jayme Parham MD [address] [place] [address] PCP - General Family Medicine 11/25/22 Jayme Parham MD [address] [place] [address] PCP - ACO Reach 12/05/22 Mick Farmer DO [address] [place] [address] Referring Physician Ophthalmology 08/21/23 Renato Santacruz MD 290 [place] [address] Referring Physician Urology 08/21/23 Chuy Wood MD [address] [facility] Professional building 1 [place] [address] Referring Physician Rheumatology 08/21/23 Rebeca Emerson, LENS INSPECTOR [address] [place] [address] Public Area Supervisor Family Medicine 03/04/25 03/11/25 documented as of this encounter
--- OUTSIDE RECORDS SUMMARY | 2025-04-19 10:07 | XMS_ITS | Encounter Summary ---
Author Organization [facility] Address [address] [place] [address] Care Team Providers Care Electron Microscopist Name Role Phone Jayme Parham MD Primary Care Provider [phone] Jayme Parham MD Unavailable [phone] Mick Farmer DO Unavailable [phone] Renato Santacruz MD Unavailable [phone] Chuy Wood MD Unavailable [phone] Rebeca Emerson OIL WELL LOGGING ENGINEER Unavailable [phone] Encounter Details Date Type Department Care Team (Late st Contact Info) Description 01/23/2023 Abstract [facility] [place] 521 Family Medicine [address] [place] [address] Jayme Parham MD [address] [place], [place] [id number] Social History Tobacco Use Types Packs/Day Years [...] often do you attend chur ch or mu-ism services? Never 12/11/2022 Active Member of Clubs [...] Recorded Patient Health Questionnaire-2 Score 0 12/12/2022 [facility] - Occupational Stress Questionnaire [...] on filedocumented in this encounter Care Teams Electron Microscopist Relationship Specialty Start Date End Date Jayme Parham MD [address] [place] [address] PCP - General Family Medicine 11/25/22 Jayme Parham MD 112 [facility] [address] [place] [address] PCP - ACO Reach 12/05/22 Mick Farmer DO [address] [place] [address] Referring Physician Ophthalmology 08/21/23 Renato Santacruz MD [address] [place] [address] Referring Physician Urology 08/21/23 Chuy Wood MD [address] [facility] Professional building 1 [place] [address] Referring Physician Rheumatology 08/21/23 Rebeca Emerson, DINA [address] [place] [address] Teleprinter Family Medicine 03/04/25 03/11/25 documented as of this encounter
--- OUTSIDE RECORDS SUMMARY | 2025-04-19 10:07 | XMS_ITS | Encounter Summary ---
Author Organization [facility] Address [address] [place] [address] Care Team Providers Care Molder Sweep Name Role Phone Jayme Parham MD Primary Care Provider Jayme Parham MD Unavailable [phone] Mick Farmer DO Unavailable [phone] Renato Santacruz MD Unavailable [phone] Chuy Wood MD Unavailable [phone] Rebeca Emerson Unavailable [phone] Encounter Details Date Type Department Care Team (Late st Contact Info) Description 05/05/2024 Orders Only [facility] 521 Family Medicine [address] [place] [address] Magalis Harris, SAPPHIRE Unexplained weight loss; Type 2 diabetes mellitus with stage 3a chronic kidney disease, without long-term current use of insulin (HCC); History of melanoma; Former smoker; Iron deficiency; Psoriatic arthropathy (HCC); Immunosuppressed status (HCC); Diverticulosis of large intestine without hemorrhage; History of pneumonectomy; retirement current use of anticoagulant; 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 [...] attend chur ch or scientology services? 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) Psoriatic arthropathy Immunosuppressed status (HCC) Diverticulosis of large intestine without hemorrhage History of pneumonectomy 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, lung retirement current use of anticoagulant 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 (HCC) Atrial fibrillation Medication monitoring encounter Encounter for therapeutic drug monitoring documented in this encounter Additional Health Concerns Assessment Noted Time PHQ-9 Depression Total Score: 7 05/22/20 23 2:00 PM EST documented as of this encounter Care Teams Molder Sweep Relationship Specialty Start Date End Date Jayme Parham MD [address] [address] PCP - General Family Medicine 11/25/22 Jayme Parham MD 112 [facility] 100 [place] [address] PCP - ACO Reach 12/05/22 Mick Farmer DO [address] [place] [address] Referring Physician Ophthalmology 08/21/23 Renato Santacruz MD 290 [place] [address] Referring Physician Urology 08/21/23 Chuy Wood MD [address] [facility] Professional building 1 [place] [address] Referring Physician Rheumatology 08/21/23 Rebeca Emerson, DINA [address] [place] [place] [address] Mate Ship Family Medicine 03/04/25 03/11/25 documented as of this encounter
--- OUTSIDE RECORDS SUMMARY | 2025-04-19 10:07 | XMS_ITS | Encounter Summary ---
Author Organization [facility] Address [address] [place] [address] Care Team Providers Care Photolithographic Stripper Name Role Phone Jayme Parham MD Primary Care Provider Jayme Parham MD Unavailable [phone] Mick Farmer DO Unavailable [phone] Renato Santacruz MD Unavailable [phone] Chuy Wood MD Unavailable Reason for Visit * Reason Comments Med Refill Encounter Details Date Type Department Care Team (Late st Contact Info) Description 04/14/2025 Refill [facility] [place] [address] Family Medicine 112 [facility] 100 [place] [address] Jayme Parham MD 112 [facility] 100 [place] [address] 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 (HCC); Type 2 diabetes mellitus with stage 3a chronic kidney disease, without long-term current use of insulin (HCC) Social History Tobacco Use Types Packs/Day [...] week 04/08/2024 How often do you attend [facility] or congregational services? Never 04/08/2024 Do you belong to any clubs o r organizations such as catholic groups, unions, fraternal or athletic groups, or [...] Recorded Patient Health Questionnaire-2 Score 0 11/04/2024 [facility] of Occupat ional Health [...] any time in the past 12 m [facility], were you homeless or living [...] as of this encounter Visit Diagnoses Diagnosis 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 (HCC) Atrial fibrillation Type 2 diabetes mellitus with stage 3a chronic kidney disease, without long-term current use of insulin (HCC) documented in this encounter Additional Health Concerns Assessment Noted Time PHQ-9 Depression Total Score: 7 11/05/19 1:00 PM EDT documented as of this encounter Care Teams Photolithographic Stripper Relationship Specialty Start Date End Date Jayme Parham MD [address] [place] [address] PCP - General Family Medicine 11/25/22 Jayme Parham MD [address] [place] [address] PCP - ACO Reach 12/05/22 Mick Farmer DO [address] [place] [address] Referring Physician Ophthalmology 08/21/23 Renato Santacruz MD 290 [place] [address] Referring Physician Urology 08/21/23 Chuy Wood MD [address] [facility] Professional building 1 [place] [address] Referring Physician Rheumatology 08/21/23 documented as of this encounter
--- OUTSIDE RECORDS SUMMARY | 2025-04-19 10:07 | XMS_ITS | Encounter Summary ---
Author Organization [facility] Address [address] [place] [address] Care Team Providers Care Rental Coordinator Name Role Phone Jayme Perez MD Primary Care Provider Jayme Perez MD Unavailable [phone] Mick Farmer DO Unavailable [phone] Renato Santacruz MD Unavailable [phone] Chuy Wood MD Unavailable Rebeca Emerson Unavailable [phone] Encounter Details Date Type Department Care Team (Late st Contact Info) Description 05/15/2024 Clinisync Result Encounter [facility] External Department Unsolicited Jayme Perez MD [address] [facility] [address] [place] [address] Social History Tobacco Use Types Packs/Day Years [...] How often do you attend chur or anabaptist services? Never 04/08/2024 Do you belong to [...] any time in the past 12 m [facility], were you homeless or living in [...] AM EDT Narrative 05/15/2024 7:26 AM EDT [address] [address] [address] Scan Report Signed Patient: WILDA SEN MR#: [id number] : 1945 Acct:[id number] Age/Sex: 79 / F ADM Date: 05/14/24 Loc: CT Attending Dr: JAYME PEREZ Ordering Physician: JAYME PEREZ Date of Service: 05/14/24 Procedure(s): CT chest w con Accession Number(s): [id number] cc: JAYME PEREZ [place] [id number] Patient Name: WILDA SEN MRN: [id number] date: 1945 Sex: F Assigned Patient Location: CT Current Patient Location: Accession/Order Number: [id number] Exam Date: 05/14/2024 09:00 Report Date: 05/15/2024 [...] M.D. Signed By: 05/15/24725 DD/ 2 TD/TT: Superintendent Warehouse: Procedure Note Radiology, Radiologist, MD - 05/15/2024 [place] [address] CT Scan Report Signed Patient: WILDA SEN JMR#: [id number] : 1945cct:[id number] Age/Sex: 79 / FADM Date: 05/14/24 Loc: CT Attending Dr: JAYME PEREZ Ordering Physician: JAYME PEREZ Date of Service: 05/14/24 Procedure(s): CT chest w con Accession Number(s): [id number] cc: JAYME PEREZ [place] [address] Patient Name: WILDA SEN MRN: [id number] date: 1945 Sex: F Assigned Patient Location: CT Current Patient Location: Accession/Order Number: [id number] Exam Date: 05/14/2024 09:00 Report Date: 05/15/2024 [...] Garay M.D. Signed By:05/15/24725 DD/ 2 TD/TT: Superintendent Warehouse: Jayme Perez MD [facility] Final Resu lt documented in this encounter Visit Diagnoses Not on filedocumented in this encounter Additional Health Concerns Assessment Noted Time PHQ-9 Depression Total Score: 7 05/22/20 23 2:00 PM EST documented as of this encounter Care Teams Rental Coordinator Relationship Specialty Start Date End Date Jayme Perez MD [address] [address] PCP - General Family Medicine 11/25/22 Jayme Perez MD [address] [address] PCP - ACO Reach 12/05/22 Mick Farmer DO [address] [place] [address] [address] [place] [address] Referring Physician Ophthalmology 08/21/23 Renato Santacruz MD [address] [place] [address] Referring Physician Urology 08/21/23 Chuy Wood MD [address] [facility] Professional building [address] [place] [address] Referring Physician Rheumatology 08/21/23 Rebeca Emerson, DINA [address] [place] [address] Environmental Engineering Aide Family Medicine 03/04/25 03/11/25 documented as of this encounter
--- OUTSIDE RECORDS SUMMARY | 2025-04-19 10:07 | XMS_ITS | Encounter Summary ---
Author Organization [facility] Address [address] [place] [address] Care Team Providers Care Wing Commander Name Role Phone Jayme Parham MD Primary Care Provider Jayme Parham MD Unavailable [phone] Mick Farmer DO Unavailable [phone] Renato Santacruz MD Unavailable [phone] Chuy Wood MD Unavailable Rebeca Emerson CASINO DEALER Unavailable [phone] Encounter Details Date Type Department Care Team (Late st Contact Info) Description 12/23/2022 Orders Only [facility] [place] [facility] [address] [place] [address] Jayme Parham MD 112 [facility] [address] [place] [address] Social History Tobacco Use Types [...] often do you attend chur ch or baptism services? Never 12/11/2022 Active Member of Clubs [...] Health Questionnaire-2 Score 0 12/12/2022 [facility] - Occupational [...] a group home (including now)? No 12/11/2022 Comments No [...] on filedocumented in this encounter Care Teams Wing Commander Relationship Specialty Start Date End Date Jayme Parham MD [address] [place] [address] PCP - General Family Medicine 11/25/22 Jayme Parham MD [address] [place] [address] PCP - ACO Reach 12/05/22 Mick Farmer DO [address] [place] [address] Referring Physician Ophthalmology 08/21/23 Renato Santacruz MD [address] [place], [place] [id number] Referring Physician Urology 08/21/23 Chuy Wood MD [address] [facility] Professional building [address] [place] [address] Referring Physician Rheumatology 08/21/23 Rebeca Emerson, CASINO DEALER [address] [place], [place] [id number] [facility] 03/04/25 03/11/25 documented as of this encounter
--- OUTSIDE RECORDS SUMMARY | 2025-04-19 10:07 | XMS_ITS | Encounter Summary ---
Author Organization [facility] Address [address] [place] [address] Care Team Providers Care Cleaning Maid Name Role Phone Jayme Parham MD Primary Care Provider Jayme Parham MD Unavailable [phone] Mick Farmer DO Unavailable [phone] Renato Santacruz MD Unavailable [phone] Chuy Wood MD Unavailable Reason for Visit * Reason Comments Med Refill Encounter Details Date Type Department Care Team (Late st Contact Info) Description 04/17/2025 Refill [facility] [place] [address] [facility] [address] [place] [address] Jayme Parham MD 112 [facility] 100 [place] [address] 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 (HCC); Type 2 diabetes [...] week 04/08/2024 How often do you attend [facility] or christianity services? Never 04/08/2024 Do you [...] Recorded Patient Health Questionnaire-2 Score 0 11/04/2024 [facility] [...] in the past [address] [facility], were you homeless or living in a [...] Telephone Encounter - Magalis Harris MA - 04/18/2025 3:50 PM EDT Erx sent * Telephone Encounter - Angeles Bonilla - 04/18/2025 3:06 PM EDT Jocelyn called requesting refills on metFORMIN (Glucophage) 1000 MG and acarbose (Precose) 100 MG . She stated she will be in soon to get her A1C done. documented in this encounter Plan of Treatment [...] documented as of this encounter Care Teams Cleaning Maid Relationship Specialty Start Date End Date Jayme Parham MD [address] [address] PCP - General Family Medicine 11/25/22 Jayme Parham MD 112 [facility] 100 [place] [address] PCP - ACO Reach 12/05/22 Mick Farmer DO [address] [place] [address] Referring Physician Ophthalmology 08/21/23 Renato Santacruz MD [address] [place] [address] Referring Physician Urology 08/21/23 Chuy Wood MD [address] Professional [address] [place] [phone] Referring Physician Rheumatology 08/21/23 documented as of this encounter
--- OUTSIDE RECORDS SUMMARY | 2025-04-19 10:14 | XMS_ITS | CCD ---
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 Setter Name Role Phone Astrid Baker Unavailable CAYETANO, [...] DR CRUM Consulting Unavailable HEMEYER ., DR CMKINNEY Primary Care Unavailable MONTEIRO, DR CRUM Consulting [...] MD Jayme Perez Primary Care Provider MD Eugenia Shepherd Attending Provider Lou Glover Unavailable Jayme Perez MD Primary Care Provider [phone] Jayme Perez MD Unavailable [phone] MD Jayme Perez Primary Care Provider MD Radames Monteiro Attending Provider Felicia Farmer DO Unavailable Renato Santacruz MD Unavailable Radames Monteiro MD Unavailable Jayme Perez MD Primary Care Provider [phone] Jayme Perez MD Unavailable Jayme Perez MD Primary Care Provider [phone] Jayme Perez MD Unavailable [phone] Lobito Tapia DO Attending Provider FELICIA FARMER [...] Unavailable Jayme Perez MD Primary Care Provider [phone] Kristie Meyer Attending Provider [phone] Eugenia Shepherd MD Attending Provider [phone] Eugenia SHEPHERD Attending Unavailable Eugenia SHEPHERD Referring [...] anaphylaxis, Unknown (qualifier value) [facility] (1 source) sulfaSALAzine Drug Allergy rash nodila Other (1 source) Ciprofloxacin Drug Allergy 03-30-20 [...] 13 [facility] Repository (16 sources) Ketorolac; Translations: [ketorolac] Drug Allergy 03-26-20 23 Unknown (qualifier value), Nausea (finding) [facility] Comment on above: Severe (20 sources) Latex; Translations: [Latex] Drug allergy 01-07-20 Blister of skin AND/OR mucosa (finding) [facility] (20 sources) Non-steroidal anti-inflammatory agent; Translations: [NSAIDs] Drug allergy 02-19-20 Unknown (qualifier value) [facility] (20 sources) pioglitazone; Translations: [pioglitazone] Drug Allergy 01-07-20 Unknown (qualifier value) [facility] (6 sources) Sulfonamides (Antibiotic); Translations: [sulfa drugs] Drug allergy Unknown (qualifier value) [facility] (20 sources) metroNIDAZOLE; Translations: [Metronidazole] Drug Allergy 02-19-20 Redness of Skin [facility] (6 sources) Sulfonamides (Antibiotic); Translations: [Sulfa (Sulfonamide Antibiotics)] Allergy to substance 03-26-20 Rash [facility] (6 sources) NSAIDS (Non-Steroidal Anti-Inflamma; Translations: [NSAIDS (Non-Steroidal Anti-Inflamma] Allergy to substance 03-26-20 Anaphylaxis, Anaphylaxis, rash [facility] (1 source) Non-steroidal anti-inflammatory agent Drug allergy [facility] Other (20 sources) Substance with sulfonamide structure and antibacterial mechanism of action (substance) Drug allergy 02-19-20 [facility] Other (20 sources) Ketorolac Allergy to substance 01-07-20 Nausea Only [facility] (20 sources) Hydrocodone Bit-Homatrop Mbr Propensity to adverse reactions 08-07-[address] [facility] (20 sources) Medical Adhesive Remover Drug Allergy 02-19-[address] [facility] (1 source) Ciprofloxacin Drug Allergy 02-15-20 [facility] (1 source) Ketorolac Drug Allergy 02-15-20 [facility] (1 source) pioglitazone Drug Allergy 02-15-20 [facility] Rep[facility] Medications Current Medications Medication Drug [...] Refill(s) 0 Start Date: 08/13/23 Status: Ordered [id number] actuat albuterol 0.09 mg/actuat metered dose [...] Date: 09/19/20 Status: Ordered Cyanocobalamin-Liver Extract (Vitamin O31-Wuccu) Tablet (5 sources) Start: 03-26-2023 take 1 tablet by mouth once daily Cyanocobalamin-Liver Extract (Vitamin U11-Kfihi) Tablet Active 1 TAB PO every day at noon March 26, 2023 12:00am Complies with drug therapy Start: 03-26-2023 take 1 tablet by valdo th once daily Start: 03-26-2023 take 1 tablet by valdo th once daily Cyanocobalamin-Liver Extract (Vitamin I81-Relan) Tablet Active 1 TAB PO every day at noon March 26, 2023 12:00am Start: 03-26-2023 take 1 tablet by valdo th once daily Cyanocobalamin-Liver Extract (Vitamin L07-Lytyq) Tablet Active 1 TAB PO every day at noon March 25, 2023 11:00pm dextromethorphan hydrobromide 1.5 mg/ml / pyrilamine maleate 1.5 mg/ml oral solution (1 source) Uncompetitive K-somlyb-U-aspartate Receptor Antagonist, Sigma-1 Agonist Start: 07-25-2023 take 10 mL by mouth every eight hours Aylett DM 7.5-7.5 MG/5ML 10 mL Orally every 8 hours for 5 days Jul, Active docusate sodium 100 mg oral capsule (5 sources) take 1 capsule by mouth in [...] 08/17/19 Status: Ordered take 1 capsule by [facility] once daily esomeprazole (NexIUM) 20 MG [...] Lantus Active levoFLOXacin 250 mg oral tablet (8 sources) Quinolone Antimicrobial Start: 02-08-2025 End: 02-18-2025 [...] Ordered ondansetron 4 mg disintegrating oral tablet (15 sources) Serotonin-3 Receptor Antagonist Start: 02-08-2025 End: [...] completed) oxybutynin chloride 5 mg oral tablet (5 sources) Cholinergic Muscarinic Antagonist oxybutynin (Ditropan) 5 [...] Spacer/Aero-Ho lding Chambers (BreatheRite Leonor Spacer Adult) [facility] Indications: Chronic obstructive pulmonary disease with [...] 3 12-12-2022 Chronic Other aftercare (1 source) [facility] (current) use of anticoagulants; Translations: [PRISON CURRNT USE ANTICOAGULANTS] Onset: 3 Episodic Other aftercare (5 sources) Encounter for therapeutic drug level monitoring; Translations: [ENC THERAPEUTC DRUG LEVL MONITORING] Onset: 3 Episodic Other aftercare (1 source) 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; Translations: [OTH PRISON CURRENT [...] 12-12-2022 12-12-2022 Episodic Other aftercare (1 source) [facility] (current) use of oral hypoglycemic drugs; Translations: [PRISON USE ORAL HYPOGLYCEMIC DX] Onset: 08-12-2022 Episodic Other aftercare (1 source) intermediate manager (current) use of insulin; Translations: [PRISON CURRENT USE OF INSULIN] Onset: 02-13-2022 Episodic Other aftercare (20 sources) Long-term current use of anticoagulant; Translations: [intermediate manager (current) use of anticoagulants] Onset: 07-21-2023 Episodic [...] Facility [facility] PROTHROMBIN TIME INR W/O COUMon 04-05-2025 Interpretation and review of laboratory results Abnormal [facility] PT Coag (PPP) [Time] 19.6 s High [facility] TBH INR 1.98 [facility] Comment on above: DESIRED INR: 2.0-3.0 CONDITIONS NOT LISTED BELOW 2.5-3.5 FOR PROSTHETIC HEART VALVE REPLACEMENT 2.5-3.5 RECURRENT THROMBOSIS [facility] PROTHROMBIN TIME INR W/O COUMon 03-08-2025 Interpretation and review of laboratory results Abnormal [facility] PT Coag (PPP) [Time] 27.8 s High [facility] TB INR 2.[address] [facility] Comment on above: DESIRED INR: 2.0-3.0 CONDITIONS NOT LISTED BELOW 2.5-3.5 FOR PROSTHETIC HEART VALVE REPLACEMENT 2.5-3.5 RECURRENT THROMBOSIS [facility] Capillary blood glucose piper urement by glucometer (mass/volume)Ordered By: Eugenia Shepherd on 02-14-2025 Glucose [Mass/Vol] 108 mg/dL Normal [facility] Comment on above: Random Glucose Refer ence Range is dependent on time and content of last meal. Glucose of more than 200 mg/dL in a nonstressed, ambulatory subject supports the diagnosis of Diabetes Mellitus. Result Comment: [place] Glucose Reference Range is dependent on time and content of last meal. Glucose of more than 200 mg/dL in a nonstressed, ambulatory subject supports the diagnosis of Diabetes Mellitus. Performed By: #### G LULS #### Point of Care testing , Glucose Poct Glucometerson 0 02-14-2025 Commemt1 Glu2: Cleaned Meter Normal [facility] Comment on above: Result Comment: PERF ORMED BY: [facility] [address] [place] [address] PATHOLOGIST VACUUM REPAIRER IZABEL CHI M.D. Performed By: #### G LULS #### Point of Care testing , INR in Platelet poor plasma by Coagulation assayOrdered By: BLANCA SIM on 02-14-2025 INR Coag (PPP) [Relative time] 1.0 {INR} Normal [facility] Comment on above: INR Therapeutic Rang [...] #### P TT, PT #### [facility] [address] [place] [id number] [facility] 02-14-2025 L ----- Specimen: [id number] Received: 02/14/25 Status: JET Mulligansuzy Num: [id number] Spec Type: Surgical Subm Dr: Eugenia Shepherd MD Tissues: A Gross Only (LEFT URETER STONE) Procedures: Level 1 Gross Age/ Patient Sex Location Account Attending Physician Wilda Sen 79/F [place] [id number] Eugenia Shepherd MD SPEC NUM: [id number] RECD: 02/14/25 STATUS: JET CRUZ NUM: [id number] LEONOR: 02/14/[address]: Eugenia Shepherd MD ENTERED: 02/14/[address] [facility] [address]: SPEC TYPE: Surgical DEPT: S ENTERED BY: [id number] RECV BY: [id number] ORDERED: Level 1 Gross ORDERED: Level 1 Gross Pathological Diagnosis Left ureteral stone, removal: - Fragments of calculus. Clinical Information Left kidney stones Gross Description Received fresh labeled with the patients name, date of , and left ureter stone are six escobedo-chaudhry, granular, 0.1 to 0.3 cm in greatest dimension calculi. The specimen is sent to [facility] for chemical analysis. GROSS ONLY-JG Microscopic Description Gross examination only. CPT Codes 36262 Specimen: [id number] Received: 02/14/25 Status: JET Cruz Num: [id number] Spec Type: Surgical Subm Dr: Eugenia Shepherd MD Tissues: A Gross Only (LEFT URETER STONE) Procedures: Level 1 Gross Patient: Wilda Sen [id number] (Continued) Signed (signature on file) Mikel Quiros MD 02/15/25 1034 Normal [facility] No Panel InformationOrdered By: Eugenia Shepherd on 02-14-2025 Bedside Glucose Comment Glu2: cleaned meter [facility] Partial Thromboplastin Timeo n 02-14-2025 aPTT Coag (Bld) [Time] 26.6 s Normal 25.1-36.5 [facility] Comment on above: Result Comment: A he matocrit value greater than 55% may lead to inaccurate results in coagulation testing. Patients having hematocrit values >55% require a special collection tube for coagulation studies. Please contact the laboratory at [phone] for redraw instructions. PERFORMED BY: [facility] [address] [facility] [place] [address] PATHOLOGIST VACUUM REPAIRER IZABEL CHI M.D. Performed By: #### P TT, PT #### [facility] [address] [id number] [facility] Prothrombin time (PT)Ordered By: BLANCA SIM on 02-14-2025 PT Coag (PPP) [Time] 11.6 s Normal 9.0-12.9 [facility] Comment on above: A hematocrit value g reater than 55% may lead to inaccurate results in coagulation testing. Patients having hematocrit values >55% require a special collection tube for coagulation studies. Please contact the laboratory at [phone] for redraw instructions. Result Comment: A he matocrit value greater than 55% may lead to inaccurate results in coagulation testing. Patients having hematocrit values >55% require a special collection tube for coagulation studies. Please contact the laboratory at [phone] for redraw instructions. Performed By: #### P TT, PT #### [address] X-ray reportOrdered By: Mj Zhou on 02-14-2025 Study report [facility] Main [place] [address] [place] [address] XRay Report Signed Patient: Wilda Sen MR#: [id number] : 1945 Acct:[id number] Age/Sex: 79 / F ADM Date: 5 Loc: [place] Room: Type: [facility] Attending Dr: Eugenia Shepherd MD Copies to: [...] Jr., D.O. 02/14/2025 12:37 PM Dictation Location: [place] [address] Transcribed By: [facility] 02/14/25 1237 Dictated By: Kevan Zhou Jr, DO 02/14/25 1235 Signed By: 02/14/25 1237 [facility] XR KUBon 02-14-2025 XR KUB [facility] Main [address] [address] XRay Report Signed Patient: Wilda Sen MR#: [id number] 8 : 1945 Acct:[id number] Age/Sex: 79 / F ADM Date: 02/14/25 Loc: [place] Room: Type: [facility] Attending Dr: Eugenia Shepherd MD Copies to: Eugenia Shepherd MD Ordering Provider: Eugenia Shepherd MD Date of Service: 02/14/25 XR/XR KUB: STENT REMOVAL Intraoperative fluoroscopy INDICATION: Kidney stones, left stent removal TECHNIQUE: 2 mGy XR/XR KUB Findings and impression: Intraoperative images demonstrates placement of guidewire and removal of the left ureteral stent Impression dictated by: Tavon Young M.D. 02/14/2025 9:02 PM Dictation Location: [place] [address] Transcribed By: [facility] 02/14/252101 Dictated By: Tavon Young MD 02/14/252099 Signed By: 02/14/252101 Normal [facility] XR KUB [address] [address] XRay Report Signed Patient: Wilda Sen MR#: [id number] 8 : 1945 Acct:[id number] Age/Sex: 79 / F ADM Date: 02/14/25 Loc: [place] Room: Type: [facility] Attending Dr: Eugenia Shepherd MD Copies to: [...] Jr., D.O. 02/14/2025 12:37 PM Dictation Location: [place] [address] Transcribed By: [facility] 02/14/25 1237 Dictated By: Kevan Zhou Jr, DO 02/14/25 1235 Signed By: 02/14/25 1237 Normal [facility] Physician [facility] aPTT in Platelet poor plasma by Coagulation assayOrdered By: BLANCA SIM on 02-14-2025 aPTT Coag (PPP) [Time] 26.6 s 25.1-36.5 [facility] Comment on above: A hematocrit value g reater than 55% may lead to inaccurate results in coagulation testing. Patients having hematocrit values >55% require a special collection tube for coagulation studies. Please contact the laboratory at [phone] for redraw instructions. ECG 12 lead ECGon 02-11-2025 ECG 12 lead ECG [facility] [place] [address] Electrocardiograph Report Signed Patient: Wilda Sen MR#: [id number] 8 : 1945 Acct:[id number] Age/Sex: 79 / F ADM Date: 02/11/25 Loc: Room: Type: [facility] Attending Dr: Kristie MCFARLAND Ordering Provider: BRUNA [...] axis shifted right Confirmed by Dez Chavez ([id number]) on 02/12/2025 3:51:55 PM Referred By: Electronically Signed By: Dez Chavez Transcribed By: MUS Signed By Dez Chavez MD 02/12/25 7185 Normal [facility] Urine Cultureon 02-04-2025 Bacteria identified Cx Nom (U) ORGANISM: Enterobacter cloacae complex (O:ENTCLOCPLX) Ovid Count 25,000 Aerobic KIKA Charge (NMIC56) SUSCEPTIBILITY [...] RESISTANT TO ALL B-LACTAM DRUGS. PERFORMED BY: [place] [address] PATHOLOGIST VACUUM REPAIRER IZABEL CHI M.D. Normal [facility] Comment on above: Performed By: #### C UU #### [address] Urine cultureOrdered By: Jonatan Tapia on 02-04-2025 Bacteria identified Cx Nom (U) Enterobacter cloacae complex Abnormal [facility] XR ABDOMEN 1Von 02-02-2025 [place] [address] XRay Report Signed Patient: WILDA SEN MR#: [id number] : 1945 Acct:[id number] Age/Sex: 79 / F ADM Date: 02/02/25 Loc: RAD Attending Dr: Eugenia Shepherd M.D. Ordering Physician: Eugenia Shepherd M.D. Date of Service: 02/02/25 Procedure(s): XR abdomen 1V Accession Number(s): [id number] cc: Eugenia Shepherd M.D.; JAYME PEREZ The [place] [id number] Patient Name: WILDA SEN MRN: [facility]:[id number] date: 1945 Sex: F Assigned Patient Location: [facility] Current Patient Location: RAD Accession/Order Number: [id number] Exam Date: 02/02/2025 10:29 Report Date: 02/02/2025 [...] Jr., D.O. 02/02/2025 10:30 AM Dictation Location: [place] [address] Electronically authenticated by: [id number] Y Date: 02/02/2025 10:30 Dictated By: Kevan Zhou M.D. Signed By: 02/02/25 1033 DD/ 1030 TD/TT: Pharmacovigilance Scientist: [facility] Robert Huiogjazzmine fermin MD - 02/02/2025 [place] [address] XRay Report Signed Patient: WILDA SEN MR#: [id number] : 1945 Acct:[id number] Age/Sex: 79 / F ADM Date: 02/02/25 Loc: RAD Attending Dr: Eugenia Shepherd M.D. Ordering Physician: Eugenia Shepherd M.D. Date of Service: 02/02/25 Procedure(s): XR abdomen 1V Accession Number(s): [id number] cc: Eugenia Shepherd M.D.; JAYME PEREZ [place] [id number] Patient Name: WILDA SEN MRN: [id number] date: 1945 Sex: F Assigned Patient Location: [facility] Current Patient Location: RAD Accession/Order Number: [id number] Exam Date: 02/02/2025 10:29 Report Date: 02/02/2025 [...] COURSE OF THE STENT. Impression dictated by: Jones Das Jr.OAlbin 02/02/2025 10:30 AM Dictation Location: [place] [address] Electronically authenticated by: [id number] Y Date: 02/02/2025 10:30 Dictated By: Kevan Zhou M.D. Signed By: 02/02/25 1033 DD/ 1030 TD/TT: Pharmacovigilance Scientist: [facility] Radiology Study observation (narrative) [facility] XR ABDOMEN 1VOrdered By: Gibson [facility] on 02-02-[address] [facility] Work Phone: ALL CBC WITH AUTO DIFFon BASOPHILS ABSOLUTE AUTO 0.[address] [facility] Basophils/100 WBC (Bld) 0.7 % 0.2 - 2.0 % [facility] Eosinophils/100 WBC (Bld) 1.9 % 0.9 - 7.0 % [facility] Erythrocyte distribution width (RBC) [Ratio] 14.5 % 11.0 - 15.0 % [facility] Hematocrit (Bld) [Volume fraction] 37 % 36.0 - 48.0 % [facility] Hemoglobin (Bld) [Mass/Vol] 12 g/dL 12.0 - 16.0 g/dL [facility] IMMATURE GRANULOCYTES ABS AUTO 0.[address] [facility] Immature granulocytes/100 WBC (Bld) 0.4 % 0.0 - 0.5 % [facility] Interpretation and review of laboratory results Abnormal [facility] LYMPHOCYTES ABSOLUTE AUTO 2.[address] [facility] Lymphocytes/100 WBC (Bld) 30.9 % 20.5 - 60.0 % [facility] MCH (RBC) [Entitic mass] 31.3 pg 26.7 - 34.[address] [facility] MCHC (RBC) [Mass/Vol] 32.4 g/dL 29.9 - 35.2 g/dL [facility] MCV (RBC) [Entitic vol] 96.4 fL 81.0 - 99.[address] [facility] MONOCYTES ABSOLUTE AUTO 0.[address] [facility] Monocytes/100 WBC (Bld) 8.3 % 1.7 - 12.0 % [facility] NEUTROPHILS ABSOLUTE AUTO 4.[address] [facility] Neutrophils/100 WBC (Bld) 57.8 % 43.0 - 75.0 % [facility] Platelet mean volume (Bld) [Entitic vol] 8.9 fL Low 9.5 - 13.5 fL [facility] EO # 0.1 [facility] PLT 308 [facility] RBC 3.84 Low [facility] WBC [address] [facility] MR BRAIN W AND WO CONTRAST ( [...] BY: Noé Elizondo MD Normal Not Available [facility] PROTHROMBIN TIME INR W/O COUMon 01-06-2025 Interpretation and review of laboratory results Abnormal [facility] PT Coag (PPP) [Time] 21.7 s High [facility] INR 2.[address] [facility] Comment on above: DESIRED INR: 2.0-3.0 CONDITIONS NOT LISTED BELOW 2.5-3.5 FOR PROSTHETIC HEART VALVE REPLACEMENT 2.5-3.5 RECURRENT THROMBOSIS [facility] PROTHROMBIN TIME INR W/O COUMon 12-08-2024 Interpretation and review of laboratory results Abnormal [facility] PT Coag (PPP) [Time] 22.8 s High [facility] INR 2.[address] [facility] Comment on above: DESIRED INR: 2.0-3.0 CONDITIONS NOT LISTED BELOW 2.5-3.5 FOR PROSTHETIC HEART VALVE REPLACEMENT 2.5-3.5 RECURRENT THROMBOSIS [facility] ALL CBC WITH AUTO DIFFon BASOPHILS ABSOLUTE AUTO 0.[address] [facility] Basophils/100 WBC (Bld) 0.9 % 0.2 - 2.0 % [facility] Eosinophils/100 WBC (Bld) 5.6 % 0.9 - 7.0 % [facility] Erythrocyte distribution width (RBC) [Ratio] 14.6 % 11.0 - 15.0 % [facility] Hematocrit (Bld) [Volume fraction] 39.6 % 36.0 - 48.0 % [facility] Hemoglobin (Bld) [Mass/Vol] 12.7 g/dL 12.0 - 16.0 g/dL [facility] IMMATURE GRANULOCYTES ABS AUTO 0.[address] [facility] Immature granulocytes/100 WBC (Bld) 0.4 % 0.0 - 0.5 % [facility] Interpretation and review of laboratory results Abnormal [facility] LYMPHOCYTES ABSOLUTE AUTO 1.[address] [facility] Lymphocytes/100 WBC (Bld) 32 % 20.5 - 60.0 % [facility] MCH (RBC) [Entitic mass] 31 pg 26.7 - 34.[address] [facility] MCHC (RBC) [Mass/Vol] 32.1 g/dL 29.9 - 35.2 g/dL [facility] MCV (RBC) [Entitic vol] 96.6 fL 81.0 - 99.[address] [facility] MONOCYTES ABSOLUTE AUTO 0.[address] [facility] Monocytes/100 WBC (Bld) 9.9 % 1.7 - 12.0 % [facility] NEUTROPHILS ABSOLUTE AUTO 2.[address] [facility] Neutrophils/100 WBC (Bld) 51.2 % 43.0 - 75.0 % [facility] Platelet mean volume (Bld) [Entitic vol] 8.8 fL Low 9.5 - 13.5 fL [facility] EO # 0.3 [facility] PLT 284 [facility] RBC 4.1 Low [facility] WBC 5.[address] [facility] MICROALB CREAT RATIO RAN Ramila 11-02-2024 CREATININE URINE RANDOM 149.56 mg/dL 20.00 - 300.00 mg/dL [facility] Interpretation and review of laboratory results Abnormal [facility] MICROALBUM CREATININE RATIO UR 129.7 mg/g High 0.0 - 29.9 mg/g [facility] Comment on above: NO MICROALBUMINURIA 0-29 MG/G CLINICAL MICROALBUMINURIA 30-300 MG/G MACROALBUMINURIA >300 MG/G MICROALBUMIN URINE RANDOM 19.4 mg/dL NINF - 30.0 mg/dL [facility] PROTHROMBIN TIME INR W/O COUMon 10-25-2024 Interpretation and review of laboratory results Abnormal [facility] PT Coag (PPP) [Time] 28.7 s High [facility] INR 3.[address] [facility] Comment on above: DESIRED INR: 2.0-3.0 CONDITIONS NOT LISTED BELOW 2.5-3.5 FOR PROSTHETIC HEART VALVE REPLACEMENT 2.5-3.5 [facility] ALL CBC WITH AUTO DIFFon BASOPHILS ABSOLUTE AUTO 0.[address] [facility] Basophils/100 WBC (Bld) 1 % 0.2 - 2.0 % [facility] Eosinophils/100 WBC (Bld) 3.7 % 0.9 - 7.0 % [facility] Erythrocyte distribution width (RBC) [Ratio] 14.4 % 11.0 - 15.0 % [facility] Hematocrit (Bld) [Volume fraction] 38.7 % 36.0 - 48.0 % [facility] Hemoglobin (Bld) [Mass/Vol] 12.4 g/dL 12.0 - 16.0 g/dL [facility] IMMATURE GRANULOCYTES ABS AUTO 0.[address] [facility] Immature granulocytes/100 WBC (Bld) 0.3 % 0.0 - 0.5 % [facility] Interpretation and review of laboratory results Abnormal [facility] LYMPHOCYTES ABSOLUTE AUTO 1.[address] [facility] Lymphocytes/100 WBC (Bld) 28.4 % 20.5 - 60.0 % [facility] MCH (RBC) [Entitic mass] 30.9 pg 26.7 - 34.[address] [facility] MCHC (RBC) [Mass/Vol] 32 g/dL 29.9 - 35.2 g/dL [facility] MCV (RBC) [Entitic vol] 96.5 fL 81.0 - 99.[address] [facility] MONOCYTES ABSOLUTE AUTO 0.[address] [facility] Monocytes/100 WBC (Bld) 5.9 % 1.7 - 12.0 % [facility] NEUTROPHILS ABSOLUTE AUTO 3.[address] [facility] Neutrophils/100 WBC (Bld) 60.7 % 43.0 - 75.0 % [facility] Platelet mean volume (Bld) [Entitic vol] 8.9 fL Low 9.5 - 13.[address] [facility] TB EO # 0.2 [facility] PLT 292 [facility] RBC 4.01 Low [facility] WBC 6.3 [facility] PROTHROMBIN TIME INR W/O COUMon 09-27-2024 Interpretation and review of laboratory results Abnormal [facility] PT Coag (PPP) [Time] 26.7 s High [facility] INR 2.[address] [facility] Comment on above: DESIRED INR: 2.0-3.0 CONDITIONS NOT LISTED BELOW 2.5-3.5 FOR PROSTHETIC HEART VALVE REPLACEMENT 2.5-3.5 RECURRENT THROMBOSIS [facility] PROTHROMBIN TIME INR W/O COUMon 09-13-2024 Interpretation and review of laboratory results Abnormal [facility] PT Coag (PPP) [Time] 17.8 s High [facility] INR 1.[address] [facility] Comment on above: DESIRED INR: 2.0-3.0 CONDITIONS NOT LISTED BELOW 2.5-3.5 FOR PROSTHETIC HEART VALVE REPLACEMENT 2.5-3.5 RECURRENT THROMBOSIS [facility] PROTHROMBIN TIME INR W/O COUMon 08-17-2024 Interpretation and review of laboratory results Abnormal [facility] PT Coag (PPP) [Time] 19.7 s High [facility] INR 1.[address] [facility] Comment on above: DESIRED INR: 2.0-3.0 CONDITIONS NOT LISTED BELOW 2.5-3.5 FOR PROSTHETIC HEART VALVE REPLACEMENT 2.5-3.5 RECURRENT THROMBOSIS [facility] Ophthalmic OCT panelon 08-[address] [facility] Right Eye Images reviewed and comparison made to baseline, Images reviewed. To assess optic nerve function and for use in future follow-up. Reliability: good and adequate. Left Eye Images reviewed and comparison made to baseline, Images reviewed. To assess optic nerve function and for use in future follow-up. Reliability: good and adequate. Notes Good nerve fiber layer (NFL) thickness both eyes (OU). Stable. [facility] Study observation (narrative) [facility] PROTHROMBIN TIME INR W/O COUMon 07-19-2024 Interpretation and review of laboratory results Abnormal [facility] PT Coag (PPP) [Time] 27 s High [facility] INR 2.[address] [facility] Comment on above: DESIRED INR: 2.0-3.0 CONDITIONS NOT LISTED BELOW 2.5-3.5 FOR PROSTHETIC HEART VALVE REPLACEMENT 2.5-3.5 RECURRENT THROMBOSIS [facility] Ambulatory Visit Summaryon 1 Ambulatory Visit Summary Ambulatory Visit Summary WILDA SEN :1945 Visit Date:07/12/2024 Ambulatory Visit Instructions Your Diagnosis Kidney stone Adrenal nodule Anticoagulated Your Care Team Attending Physician - Eugenia SHEPHERD MD Primary Care Physician - JAYME [...] Following Appointments Follow Up with CORA AGUIAR, Eugenia Venegas, URL When: Where: [address] [place] [address] [address]- Medications What How Much When Instructions Unchanged [...] [facility] use [facility] th[facility] Kidney stone Kidney [...] be greater depending (more content not included)... [facility] Reminderson 07-12-2024 Reminders Reminders From: Julita Vu To: EU - Recalljax Shepherd; Sent: 07/12/2024 12:09:59 EST Show up: [...] ) Other: PROVIDER RELATED REMINDER:_ ( ) Industrial Refrigeration Mechanic ( ) Call Pharmacy ( ) Call Lab ( ) Other: Special Instructions:_ Comments:_ [facility] Reminders Reminders From: Jo-Ann Schaeffer To: EU - Administrative; Sent: 07/12/2024 11:46:18 EST Show up: 04/17/2026 11:46:00 EDT Subject: 2 YR AND KUB Due Date/Time: 07/03/2026 11:46:00 EST Reminder/Recall SCHEDULE IN 2 YRS AND KUB W/ DR SHEPHERD [facility] Urology Office/Clinic Noteon 07-12-2024 Urology Office/Clinic Note Urology Office/Clinic Note Chief Complaint 3 month F/U w KUB HPI Staff 18 mo with KUB due to kidney stones. KUB 07/05/24[facility] *no uro meds Dysuria: [...] nodule. Not worrisome, stable. 3. 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 [...] Eugenia Venegas, URL [address] [place] [id number]- Additional Instructions: 18 mos with KUB Patient Education Dietary Guidelines to Help Prevent Kidney Stones I, Julita Vu, personally scribed for Dr. Shepherd on 07/12/2024 11:45:03. . Portions of this record may have been created with voice recognition artificial intelligence software, specifically Qraved, CookItFor.Us and or NavigatorMD. Substitutions may have occurred due to the inherent limitations of voice recognition and artificial intelligence software. Problem List/Past Medical History Ongoing Abdominal pain Adrenal nodule Afib Anticoagulated Anxiety BMI 27.0-27.9,adult Depression Diabetes Flank pain Former smoker Frequent urination Heart murmur History of uterine cancer Hx of [facility] use of blood thinners Kidney stone Kidney [...] aspirin 8 (more content not included)... Normal [facility] Comment on above: Result Comment: Elec tronically Signed By: Eugenia SHEPHERD MD P\.br\Date and Time Signed: 07/12/24 12:24 EST\.br\Electronically Co-Signed By: Julita Vu P\.br\Date and Time Co-Signed: 07/12/24 11:46 EST [facility] W/O COUMon 07-01-2024 Interpretation and review of laboratory results Abnormal [facility] PT Coag (PPP) [Time] 30.3 s High [facility] TB INR 3.[address] [facility] Comment on above: DESIRED INR: 2.0-3.0 CONDITIONS NOT LISTED BELOW 2.5-3.5 FOR PROSTHETIC HEART VALVE REPLACEMENT 2.5-3.5 RECURRENT [facility]ROMBOSIS [facility] ALL CBC WITH AUTO DIFFon BASOPHILS ABSOLUTE AUTO 0.[address] [facility] Basophils/100 WBC (Bld) 0.8 % 0.2 - 2.0 % [facility] Eosinophils/100 WBC (Bld) 3.2 % 0.9 - 7.0 % [facility] Erythrocyte distribution width (RBC) [Ratio] 14.5 % 11.0 - 15.0 % [facility] Hematocrit (Bld) [Volume fraction] 38.1 % 36.0 - 48.0 % [facility] Hemoglobin (Bld) [Mass/Vol] 12.3 g/dL 12.0 - 16.0 g/dL [facility] IMMATURE GRANULOCYTES ABS AUTO 0.[address] [facility] Immature granulocytes/100 WBC (Bld) 0.5 % 0.0 - 0.5 % [facility] Interpretation and review of laboratory results Abnormal [facility] LYMPHOCYTES ABSOLUTE AUTO [address] [facility] Lymphocytes/100 WBC (Bld) 30.8 % 20.5 - 60.0 % [facility] MCH (RBC) [Entitic mass] 31.6 pg 26.7 - 34.[address] [facility] MCHC (RBC) [Mass/Vol] 32.3 g/dL 29.9 - 35.2 g/dL [facility] MCV (RBC) [Entitic vol] 97.9 fL 81.0 - 99.[address] [facility] MONOCYTES ABSOLUTE AUTO 0.[address] [facility] Monocytes/100 WBC (Bld) 7.7 % 1.7 - 12.0 % [facility] NEUTROPHILS ABSOLUTE AUTO 3.[address] [facility] Neutrophils/100 WBC (Bld) 57 % 43.0 - 75.0 % [facility] Platelet mean volume (Bld) [Entitic vol] 8.9 fL Low 9.5 - 13.5 fL [facility] EO # 0.2 [facility] PLT 300 [facility] RBC 3.89 Low [facility] WBC 6.6 [facility] PROTHROMBIN TIME INR W/O COUMon 05-14-2024 Interpretation and review of laboratory results Abnormal [facility] PT Coag (PPP) [Time] 23 s High [facility] INR 2.[address] [facility] Comment on above: DESIRED INR: 2.0-3.0 CONDITIONS NOT LISTED BELOW 2.5-3.5 FOR PROSTHETIC HEART VALVE REPLACEMENT 2.5-3.5 RECURRENT THROMBOSIS [facility] CREATININEon 04-22-2024 Creatinine [Mass/Vol] 0.84 mg/dL 0.55 - 1.02 mg/dL [facility] GFR/1.73 sq M.predicted CKD-EPI (S/P/Bld) [Vol rate/Area] >60 >=60 mL/min/1.7 3m 2 [facility] EGFR-NON AF LUXEMBOURGER >60 >=60 mL/min/1.7 3m [address] [facility] ALL CBC WITH AUTO DIFFon BASOPHILS ABSOLUTE AUTO 0.[address] [facility] Basophils/100 WBC (Bld) 0.6 % 0.2 - 2.0 % [facility] Eosinophils/100 WBC (Bld) 2.1 % 0.9 - 7.0 % [facility] Erythrocyte distribution width (RBC) [Ratio] 14.1 % 11.0 - 15.0 % [facility] Hematocrit (Bld) [Volume fraction] 41.8 % 36.0 - 48.0 % [facility] Hemoglobin (Bld) [Mass/Vol] 13.5 g/dL 12.0 - 16.0 g/dL [facility] IMMATURE GRANULOCYTES ABS AUTO 0.[address] [facility] Immature granulocytes/100 WBC (Bld) 0.3 % 0.0 - 0.5 % [facility] Interpretation and review of laboratory results Abnormal [facility] LYMPHOCYTES ABSOLUTE AUTO 2.[address] [facility] Lymphocytes/100 WBC (Bld) 32.2 % 20.5 - 60.0 % [facility] MCH (RBC) [Entitic mass] 31.0 pg 26.7 - 34.[address] [facility] MCHC (RBC) [Mass/Vol] 32.3 g/dL 29.9 - 35.2 g/dL [facility] MCV (RBC) [Entitic vol] 95.9 fL 81.0 - 99.[address] [facility] MONOCYTES ABSOLUTE AUTO 0.[address] [facility] Monocytes/100 WBC (Bld) 6.8 % 1.7 - 12.0 % [facility] NEUTROPHILS ABSOLUTE AUTO 3.[address] [facility] Neutrophils/100 WBC (Bld) 58.0 % 43.0 - 75.0 % [facility] Platelet mean volume (Bld) [Entitic vol] 8.6 fL Low 9.5 - 13.5 [facility]L [facility] PLT 316 [facility] RBC 4.36 [facility] WBC 6.[address] [facility] PROTHROMBIN TIME INR W/O COUMon 04-13-2024 Interpretation and review of laboratory results Abnormal [facility] PT Coag (PPP) [Time] 27.7 s High [facility] INR 2.[address] [facility] Comment on above: DESIRED INR: 2.0-3.0 CONDITIONS NOT LISTED BELOW 2.5-3.5 FOR PROSTHETIC HEART VALVE REPLACEMENT 2.5-3.5 [facility] Magnesium [Mass/volume] in S fartun or PlasmaOrdered By: Radames Monteiro on 03-31-2024 Magnesium [Mass/Vol] 1.9 mg/dL Normal 1.9-2.7 [facility] Comment on above: Result Comment: PERF ORMED BY: [place] [address] PATHOLOGIST VACUUM REPAIRER BERNIE GRAYSON M.D. Performed By: #### Joe Alcantara, PHOS #### [facility] [address] [place] [address] Phosphate [Mass/volume] in S fartun or PlasmaOrdered By: Radames Monteiro on 03-31-2024 Phosphate [Mass/Vol] 3.7 mg/dL Normal 2.5-4.5 [facility] Comment on above: Performed By: #### Joe Alcantara, PHOS #### [facility] [address] [place] [address] ALL CBC WITH AUTO DIFFon BASOPHILS ABSOLUTE AUTO 0.[address] [facility] Basophils/100 WBC (Bld) 0.6 % 0.2 - 2.0 % [facility] Eosinophils/100 WBC (Bld) 5.1 % 0.9 - 7.0 % [facility] Erythrocyte distribution width (RBC) [Ratio] 14.3 % 11.0 - 15.0 % [facility] Hematocrit (Bld) [Volume fraction] 41.5 % 36.0 - 48.0 % [facility] Hemoglobin (Bld) [Mass/Vol] 13.3 g/dL 12.0 - 16.0 g/dL [facility] IMMATURE GRANULOCYTES ABS AUTO 0.[address] [facility] Immature granulocytes/100 WBC (Bld) 0.1 % 0.0 - 0.5 % [facility] Interpretation and review of laboratory results Abnormal [facility] LYMPHOCYTES ABSOLUTE AUTO 2.[address] [facility] Lymphocytes/100 WBC (Bld) 39.4 % 20.5 - 60.0 % [facility] MCH (RBC) [Entitic mass] 30.9 pg 26.7 - 34.[address] [facility] MCHC (RBC) [Mass/Vol] 32.0 g/dL 29.9 - 35.2 g/dL [facility] MCV (RBC) [Entitic vol] 96.5 fL 81.0 - 99.[address] [facility] MONOCYTES ABSOLUTE AUTO 0.[address] [facility] Monocytes/100 WBC (Bld) 6.1 % 1.7 - 12.0 % [facility] NEUTROPHILS ABSOLUTE AUTO 3.[address] [facility] Neutrophils/100 WBC (Bld) 48.7 % 43.0 - 75.0 % [facility] Platelet mean volume (Bld) [Entitic vol] 8.7 fL Low 9.5 - 13.5 fL [facility] EO # 0.4 [facility] PLT 291 [facility] RBC 4.30 [facility] WBC 7.[address] [facility] PROTHROMBIN TIME INR W/O COUMon 03-17-2024 Interpretation and review of laboratory results Abnormal [facility] PT Coag (PPP) [Time] 28.2 s High [facility] INR 2.[address] [facility] Comment on above: DESIRED INR: 2.0-3.0 CONDITIONS NOT LISTED BELOW 2.5-3.5 FOR PROSTHETIC HEART VALVE REPLACEMENT 2.5-3.5 RECURRENT THROMBOSIS [facility] ALL BUNon 08-20-2023 Urea nitrogen [Mass/Vol] 12.0 mg/dL 7.0 - 18.0 mg/dL [facility] ALL CARBON DIOXIDEon 024 CO2 [Moles/Vol] 30.1 mmol/L 21.0 - 32.0 mmol/L [facility] ALL CHLORIDEon 08-20-2023 Chloride [Moles/Vol] 104 mmol/L 98 - 10 7 mmol/L [facility] ALL PHOSPHOROUSon 08-20-2023 Phosphate [Mass/Vol] 4.1 mg/dL 2.6 - 4 .7 mg/dL [facility] ALL SODIUMon 08-20-2023 Sodium [Moles/Vol] 141 mmol/L 136 - 145 mmol/L [facility] ALL URIC ACIDon 08-20-2023 Urate [Mass/Vol] 4.4 mg/dL 2.6 - 6.0 mg/dL [facility] CALCIUMon 08-20-2023 Calcium [Mass/Vol] 9.1 mg/dL 8.5 - 10. 1 mg/dL [facility] No Panel Informationon 08-20 [facility] CREATININEon 08-20-2023 Creatinine [Mass/Vol] 0.86 mg/dL 0.55 - 1.02 mg/dL [facility] GFR/1.73 sq M.predicted CKD-EPI (S/P/Bld) [Vol rate/Area] >60 60 - PINF [facility] EGFR-NON AF LUXEMBOURGER >60 60 - PINF [facility] COVID/FLU/RSV RT-PCRon 07-25 SARS-CoV-2 (COVID-19) RNA TREASURE+probe Ql (Unsp spec) Negative [facility] [employer] Other COVID/FLU/RSV RT-PCR Negative [facility] Other COVID/FLU/RSV RT-PCR Positive [facility] Other Activated partial thrombopla stin time (aPTT) in platelet poor plasma by coagulation aOrdered By: Eugenia Shepherd on 03-26-2023 aPTT Coag (PPP) [Time] 35.9 s 25.1-36.5 [facility] Comment on above: A hematocrit value g reater than 55% may lead to inaccurate results in coagulation testing. Patients having hematocrit values >55% require a special collection tube for coagulation studies. Please contact the laboratory at [phone] for redraw instructions. Basophils Auto (Bld) [#/Vol] Ordered By: Eugneia Shepherd on 03-26-2023 Basophils (Bld) [#/Vol] 0.0 10*3/uL 0.0-0.2 [facility] Basophils/100 WBC Auto (Bld) Ordered By: Eugenia Shepherd on 03-26-2023 Basophils/100 WBC (Bld) 0.8 % . [facility] Calcium [Mass/volume] in Ser um or PlasmaOrdered By: Eugenia Shepherd on 03-26-2023 Calcium [Mass/Vol] 10.0 mg/dL 8.6-10.3 [facility] Carbon dioxide, total [Moles /volume] in Serum or PlasmaOrdered By: Eugenia Sehpherd on 03-26-2023 CO2 [Moles/Vol] 30.0 mmol/L 21.0-31.0 [facility] Chloride [Moles/volume] in S fartun or PlasmaOrdered By: Eugenia Shepherd on 03-26-2023 Chloride [Moles/Vol] 104 mmol/L 98-107 [facility] Creatinine [Mass/volume] in Serum or PlasmaOrdered By: Eugenia Shepherd on 03-26-2023 Creatinine [Mass/Vol] 0.85 mg/dL 0.60-1.20 [facility] Eosinophils Auto (Bld) [#/Vo l]Ordered By: Eugenia Shepherd on 03-26-2023 Eosinophils (Bld) [#/Vol] 0.3 10*3/uL 0.0-0.45 [facility] Eosinophils/100 WBC Auto (Bl d)Ordered By: Eugenia Shepherd on 03-26-2023 Eosinophils/100 WBC (Bld) 4.3 % . [facility] Erythrocyte distribution wid th Auto (RBC) [Ratio]Ordered By: Eugenia Shepherd on 03-26-2023 Erythrocyte distribution width (RBC) [Ratio] 14.8 % 11.9-15.3 [facility] Glucose [Mass/volume] in Ser um or PlasmaOrdered By: Eugenia Shepherd on 03-26-2023 Glucose [Mass/Vol] 111 mg/dL 70-100 [facility] Comment on above: ADA recommended refe rence rangeRandom Glucose Reference Range is dependent on time and content of last meal. Glucose of more than 200 mg/dL in a nonstressed, ambulatory subject supports the diagnosis of Diabetes Mellitus. Hematocrit Auto (Bld) [Volum e fraction]Ordered By: Eugenia Shepherd on 03-26-2023 Hematocrit (Bld) [Volume fraction] 40.3 % 34.0-46.4 [facility] Hemoglobin [Mass/volume] in BloodOrdered By: Eugenia Shepherd on 03-26-2023 Hemoglobin (Bld) [Mass/Vol] 13.3 g/dL 11.8-15.4 [facility] INR in Platelet poor plasma by Coagulation assayOrdered By: Eugenia Shepherd on 03-26-2023 INR Coag (PPP) [Relative time] 2.3 {INR} [facility] Comment on above: INR Therapeutic Rang [...] RBC Auto (Bld) [#/Vol] 5.9 10*3/uL 3.8-11.6 [facility] Lymphocytes Auto (Bld) [#/Vo l]Ordered By: Eugenia Shepherd on 03-26-2023 Lymphocytes (Bld) [#/Vol] 2.2 10*3/uL 1.00-4.8 [facility] Lymphocytes/100 WBC Auto (Bl d)Ordered By: Eugenia Shepherd on 03-26-2023 Lymphocytes/100 WBC (Bld) 36.9 % . [facility] MCH Auto (RBC) [Entitic mass ]Ordered By: Eugenia Shepherd on 03-26-2023 MCH (RBC) [Entitic mass] 31.1 pg 24.7-34.3 [facility] MCHC Auto (RBC) [Mass/Vol]Or dered By: Eugenia Shpeherd on 03-26-2023 MCHC (RBC) [Mass/Vol] 32.9 g/dL 32.0-35.0 [facility] MCV Auto (RBC) [Entitic vol] Ordered By: Eugenia Shepherd on 03-26-2023 MCV (RBC) [Entitic vol] 94.4 fL 80-100 [facility] Monocytes Auto (Bld) [#/Vol] Ordered By: Eugenia Shepherd on 03-26-2023 Monocytes (Bld) [#/Vol] 0.5 10*3/uL 0.0-0.8 [facility] Monocytes/100 WBC Auto (Bld) Ordered By: Eugenia Shepherd on 03-26-2023 Monocytes/100 WBC (Bld) 7.8 % . [facility] Neutrophils Auto (Bld) [#/Vo l]Ordered By: Eugenia Shepherd on 03-26-2023 Neutrophils (Bld) [#/Vol] 3.0 10*3/uL 1.8-7.7 [facility] Neutrophils/100 WBC Auto (Bl d)Ordered By: Eugenia Shepherd on 03-26-2023 Neutrophils/100 WBC (Bld) 50.2 % . [facility] No Panel InformationOrdered By: Eugenia Shepherd on 03-26-2023 Estimated GFR (CKD-EPI) > 60.0 mL/Min [facility] Creatinine Clearance (Chem N/A [facility] Nucleated erythrocytes [Pres ence] in Blood by Automated countOrdered By: Eugenia Shepherd on 03-26-2023 Nucleated RBC Auto Ql (Bld) 0.3 /100{WBC} 0-0.5 [facility] Platelet mean volume Auto (B ld) [Entitic vol]Ordered By: Eugenia Shepherd on 03-26-2023 Platelet mean volume (Bld) [Entitic vol] 7.1 fL 6.3-10.7 [facility] Platelets Auto (Bld) [#/Vol] Ordered By: Eugenia Shepherd on 03-26-2023 Platelets (Bld) [#/Vol] 363 10*3/uL 150-450 [facility] Potassium [Moles/volume] in Serum or PlasmaOrdered By: Eugenia Shepherd on 03-26-2023 Potassium [Moles/Vol] 5.0 mmol/L 3.5-5.1 [facility] Prothrombin time (PT)Ordered By: Eugenia Shepherd on 03-26-2023 PT Coag (PPP) [Time] 26.6 s 9.0-12.9 [facility] Comment on above: A hematocrit value g reater than 55% may lead to inaccurate results in coagulation testing. Patients having hematocrit values >55% require a special collection tube for coagulation studies. Please contact the laboratory at [phone] for redraw instructions. RBC Auto (Bld) [#/Vol]Ordere d By: Eugenia Shepherd on 03-26-2023 RBC (Bld) [#/Vol] 4.27 10*6/uL 3.60-5.00 [facility] Serum or plasma anion gap de terminationOrdered By: Eugenia Shepherd on 03-26-2023 Anion gap [Moles/Vol] 13.0 mmol/L 6.0-15.0 [facility] Sodium [Moles/volume] in Ser um or PlasmaOrdered By: Eugenia Shepherd on 03-26-2023 Sodium [Moles/Vol] 142 mmol/L 136-145 [facility] Urea nitrogen [Mass/volume] in Serum or PlasmaOrdered By: Eugenia Shepherd on 03-26-2023 Urea nitrogen [Mass/Vol] 12 mg/dL 7-25 [facility] WBC Auto (Bld) [#/Vol]Ordere d By: Eugenia Shepherd on 03-26-2023 WBC (Bld) [#/Vol] 5.9 10*3/uL 3.8-11.6 [facility] PROTIMEon 12-02-2022 INR Coag (PPP) [Relative time] 3.62 {INR} Normal [facility] Comment on above: Performed By: #### P T #### [facility] [address] [place] [address] Dr. Tg Fierro INR GUIDELINES SEE BELOW Normal [facility] Comment on above: Result Comment: LAURENCE RED INR: 2.0 - 3.0 CONDITIONS NOT LISTED BELOW 2.5 - 3.5 FOR PROSTHETIC HEART VALVE REPLACEMENT 2.5 - 3.5 RECURRENT THROMBOSIS Performed By: #### P T #### [facility] [address] [address] [address] Tg Fierro PT Coag (PPP) [Time] 35.7 s Critically high 9.0-11.6 [facility] Comment on above: Performed By: #### P T #### [facility] [address] [address] [address] Tg Fierro PROTIMEon 11-11-2022 INR Coag (PPP) [Relative time] 1.90 {INR} Normal [facility] Comment on above: Performed By: #### P T #### [facility] [address] [address] [address] Tg Fierro INR GUIDELINES SEE BELOW Normal [facility] Comment on above: Result Comment: LAURENCE RED INR: 2.0 - 3.0 CONDITIONS NOT LISTED BELOW 2.5 - 3.5 FOR PROSTHETIC HEART VALVE REPLACEMENT 2.5 - 3.5 RECURRENT THROMBOSIS Performed By: #### P T #### [facility] [address] [address] [address] Tg Fierro PT Coag (PPP) [Time] 19.4 s Critically high 9.0-11.6 [facility] Comment on above: Performed By: #### P T #### [facility] [address] [place] [address] Dr. Tg Fierro CBC AUTO DIFFon 10-25-2022 BASO # 0.0 103/ul Normal 0.0-0.1 [facility] Comment on above: Performed By: #### P T #### [facility] [address] [place] [address] Dr. Tg Fierro Basophils/100 WBC (Bld) 0.5 % Normal 0.2-2.0 [facility] Comment on above: Performed By: #### P T #### [facility] [address] [place] [address] Dr. Tg Fierro EO # 0.2 103/ul Normal 0.0-0.7 [facility] Comment on above: Performed By: #### P T #### [facility] [address] [place] [address] Dr. Tg Fierro Eosinophils/100 WBC (Bld) 2.7 % Normal 0.9-7.0 [facility] Comment on above: Performed By: #### P T #### [facility] [address] [place] [address] Dr. Tg Fierro Erythrocyte distribution width (RBC) [Ratio] 13.4 % Normal 11.0-15.0 [facility] Comment on above: Performed By: #### P T #### [facility] [address] [place] [address] Dr. Tg Fierro Hematocrit (Bld) [Volume fraction] 40.7 % Normal 36.0-48.0 [facility] Comment on above: Performed By: #### P T #### [facility] [address] [place] [address] Dr. Tg Fierro Hemoglobin (Bld) [Mass/Vol] 13.2 g/dL Normal 12.0-16.0 [facility] Comment on above: Performed By: #### P T #### [facility] [address] [place] [address] Dr. Tg Fierro IG # 0.03 10e3/ul Normal 0.00-0.03 [facility] Comment on above: Performed By: #### P T #### [facility] [address] [place] [address] Dr. Tg Fierro IG % 0.5 % Normal 0.0-0.5 [facility] Comment on above: Performed By: #### P T #### [facility] [address] [place] [address] Dr. Tg Fierro LYMPH # 2.1 103/ul Normal 1.2-3.8 [facility] Comment on above: Performed By: #### P T #### [facility] [address] [place] [address] Dr. Tg Fierro Lymphocytes/100 WBC (Bld) 34.9 % Normal 20.5-60.0 [facility] Comment on above: Performed By: #### P T #### [facility] [address] [place] [address] Dr. Tg Fierro MANUAL DIFF REQ NO Normal [facility] Comment on above: Performed By: #### P T #### [facility] [address] [place] [address] Dr. Tg Fierro MCH (RBC) [Entitic mass] 30.5 pg Normal 26.7-34.0 [facility] Comment on above: Performed By: #### P T #### [facility] [address] [place] [address] Dr. Tg Fierro MCHC (RBC) [Mass/Vol] 32.4 g/dL Normal 29.9-35.2 [facility] Comment on above: Performed By: #### P T #### [facility] [address] [place] [address] Dr. Tg Fierro MCV (RBC) [Entitic vol] 94.0 fL Normal 81.0-99.0 [facility] Comment on above: Performed By: #### P T #### [facility] [address] [place] [address] Dr. Tg iFerro MONO # 0.4 103/ul Normal 0.3-0.8 [facility] Comment on above: Performed By: #### P T #### [facility] [address] [place] [address] Dr. Tg Fierro Monocytes/100 WBC (Bld) 7.1 % Normal 1.7-12.0 [facility] Comment on above: Performed By: #### P T #### [facility] [address] [place] [address] Dr. gT Fierro NEUT # 3.2 103/ul Normal 1.4-6.5 [facility] Comment on above: Performed By: #### P T #### [facility] [address] [place] [address] Dr. Tg Fierro Neutrophils/100 WBC (Bld) 54.3 % Normal 43.0-75.0 [facility] Comment on above: Performed By: #### P T #### [facility] [address] [place] [address] Dr. Tg Fierro Platelet mean volume (Bld) [Entitic vol] 8.7 fL Critically low 9.5-13.5 [facility] Comment on above: Performed By: #### P T #### [facility] [address] [place] [address] Dr. Tg Fierro PLT 295 103/ul Normal 150-450 [facility] Comment on above: Performed By: #### P T #### [facility] [address] [place] [address] Dr. Tg Fierro RBC 4.33 106/ul Normal 4.20-5.40 [facility] Comment on above: Performed By: #### P T #### [facility] [address] [place] [address] Dr. Tg Fierro WBC 5.9 103/ul Normal 4.0-11.0 [facility] Comment on above: Performed By: #### P T #### [facility] [address] [place] [address] Dr. Tg Fierro PROF 14(COMP METB)on 023 Albumin [Mass/Vol] 3.8 g/dL Normal 3.4-5.0 [facility] Comment on above: Performed By: #### C MP #### [facility] [address] [address] [address] Tg Fierro Albumin/Globulin [Mass ratio] 1.2 {ratio} Normal [facility] Comment on above: Performed By: #### C MP #### [facility] [address] [address] [address] Tg Fierro ALP [Catalytic activity/Vol] 49 U/L Normal 46-116 [facility] Comment on above: Performed By: #### C MP #### [facility] [address] [address] [address] Tg Fierro ALT [Catalytic activity/Vol] 21 U/L Normal 14-59 [facility] Comment on above: Performed By: #### C MP #### [facility] [address] [place] [address] Dr. Tg Fierro Anion gap [Moles/Vol] 13.3 mmol/L Normal [facility] Comment on above: Performed By: #### C MP #### [facility] [address] [place] [address] Dr. Tg Fierro AST [Catalytic activity/Vol] 14 U/L Critically low 15-37 [facility] Comment on above: Performed By: #### C MP #### [facility] [address] [place] [address] Dr. Tg Fierro Bilirubin [Mass/Vol] 0.5 mg/dL Normal 0.2-1.0 [facility] Comment on above: Performed By: #### C MP #### [facility] [address] [place] [address] Dr. Tg Fierro Calcium [Mass/Vol] 9.5 mg/dL Normal 8.5-10.1 [facility] Comment on above: Performed By: #### C MP #### [facility] [address] [address] [address] Tg Fierro Chloride [Moles/Vol] 104 mmol/L Normal 98-107 [facility] Comment on above: Performed By: #### C MP #### [facility] [address] [address] [address] Tg Fierro CO2 [Moles/Vol] 29.3 mmol/L Normal 21.0-32.0 [facility] Comment on above: Performed By: #### C MP #### [facility] [address] [address] [address] Tg Fierro Creatinine [Mass/Vol] 0.93 mg/dL Normal 0.55-1.02 [facility] Comment on above: Performed By: #### C MP #### [facility] [address] [address] [address] Tg Fierro EGFR-AF LUXEMBOURGER >60 Normal >=60 [facility] Comment on above: Performed By: #### C MP #### [facility] [address] [address] [address] Tg Fierro EGFR-NON AF LUXEMBOURGER 59 mL/min/1.73m2 Critically low >=60 [facility] Comment on above: Performed By: #### C MP #### [facility] [address] [address] [address] Tg Fierro Globulin (S) [Mass/Vol] 3.2 g/dL Normal [facility] Comment on above: Performed By: #### C MP #### [facility] [address] [address] [address] Tg Fierro Glucose [Mass/Vol] 186 mg/dL Critically high 74-106 [facility] Comment on above: Performed By: #### C MP #### [facility] [address] [address] [address] Tg Fierro Potassium [Moles/Vol] 4.6 mmol/L Normal 3.5-5.1 [facility] Comment on above: Performed By: #### C MP #### [facility] [address] [address] [address] Tg Fierro Protein [Mass/Vol] 7.0 g/dL Normal 6.4-8.2 [facility] Comment on above: Performed By: #### C MP #### [facility] [address] [address] [address] Tg Fierro Sodium [Moles/Vol] 142 mmol/L Normal 136-145 [facility] Comment on above: Performed By: #### C MP #### [facility] [address] [place] [address] Dr. Tg Fierro Urea nitrogen [Mass/Vol] 15.0 mg/dL Normal 7.0-18.0 [facility] Comment on above: Performed By: #### C MP #### [facility] [address] [place] [address] Dr. Tg Fierro Urea nitrogen/Creatinine [Mass ratio] 16.1 mg/mg Normal [facility] Comment on above: Performed By: #### C MP #### [facility] [address] [place] [address] Dr. Tg Fierro SED RATE WESTERGRENon 2022 SED RATE 9 mm/hr Normal <=30 [facility] Comment on above: Performed By: #### C MP #### [facility] [address] [place] [address] Dr. Tg Fierro PROTIMEon 10-14-2022 INR Coag (PPP) [Relative time] 1.94 {INR} Normal [facility] Comment on above: Performed By: #### P T #### [facility] [address] [place] [address] Dr. Tg Fierro INR GUIDELINES SEE BELOW Normal [facility] Comment on above: Result Comment: LAURENCE RED INR: 2.0 - 3.0 CONDITIONS NOT LISTED BELOW 2.5 - 3.5 FOR PROSTHETIC HEART VALVE REPLACEMENT 2.5 - 3.5 RECURRENT THROMBOSIS Performed By: #### P T #### [facility] [address] [place] [address] Dr. Tg Fierro PT Coag (PPP) [Time] 19.8 s Critically high 9.0-11.6 [facility] Comment on above: Performed By: #### P T #### [facility] [address] [place] [address] Dr. Tg Fierro CBC AUTO DIFFon 09-24-2022 BASO # 0.1 103/ul Normal 0.0-0.1 [facility] Comment on above: Performed By: #### P T #### [facility] [address] [place] [address] Dr. Tg Fierro Basophils/100 WBC (Bld) 0.7 % Normal 0.2-2.0 [facility] Comment on above: Performed By: #### P T #### [facility] [address] [place] [address] Dr. Tg Fierro EO # 0.3 103/ul Normal 0.0-0.7 [facility] Comment on above: Performed By: #### P T #### [facility] [address] [place] [address] Dr. Tg Fierro Eosinophils/100 WBC (Bld) 3.6 % Normal 0.9-7.0 [facility] Comment on above: Performed By: #### P T #### [facility] [address] [place] [address] Dr. Tg Fierro Erythrocyte distribution width (RBC) [Ratio] 13.4 % Normal 11.0-15.0 [facility] Comment on above: Performed By: #### P T #### [facility] [address] [place] [address] Dr. Tg Fierro Hematocrit (Bld) [Volume fraction] 38.4 % Normal 36.0-48.0 [facility] Comment on above: Performed By: #### P T #### [facility] [address] [place] [address] Dr. Tg Fierro Hemoglobin (Bld) [Mass/Vol] 12.7 g/dL Normal 12.0-16.0 [facility] Comment on above: Performed By: #### P T #### [facility] [address] [place] [address] Dr. Tg Fierro IG # 0.05 10e3/ul Critically high 0.00-0.03 [facility] Comment on above: Performed By: #### P T #### [facility] [address] [place] [address] Dr. Tg Fierro IG % 0.7 % Critically high 0.0-0.5 [facility] Comment on above: Performed By: #### P T #### [facility] [address] [place] [address] Dr. Tg Fierro LYMPH # 2.6 103/ul Normal 1.2-3.8 [facility] Comment on above: Performed By: #### P T #### [facility] [address] [place] [address] Dr. Tg Fierro Lymphocytes/100 WBC (Bld) 34.2 % Normal 20.5-60.0 [facility] Comment on above: Performed By: #### P T #### [facility] [address] [place] [address] Dr. Tg Fierro MANUAL DIFF REQ NO Normal [facility] Comment on above: Performed By: #### P T #### [facility] [address] [place] [address] Dr. Tg Fierro MCH (RBC) [Entitic mass] 31.2 pg Normal 26.7-34.0 [facility] Comment on above: Performed By: #### P T #### [facility] [address] [place] [address] Dr. Tg Fierro MCHC (RBC) [Mass/Vol] 33.1 g/dL Normal 29.9-35.2 [facility] Comment on above: Performed By: #### P T #### [facility] [address] [place] [address] Dr. Tg Fierro MCV (RBC) [Entitic vol] 94.3 fL Normal 81.0-99.0 [facility] Comment on above: Performed By: #### P T #### [facility] [address] [place] [address] Dr. Tg Fierro MONO # 0.6 103/ul Normal 0.3-0.8 [facility] Comment on above: Performed By: #### P T #### [facility] [address] [place] [address] Dr. Tg Fierro Monocytes/100 WBC (Bld) 8.1 % Normal 1.7-12.0 [facility] Comment on above: Performed By: #### P T #### [facility] [address] [address] [address] Tg Fierro NEUT # 4.1 103/ul Normal 1.4-6.5 [facility] Comment on above: Performed By: #### P T #### [facility] [address] [address] [address] Tg Fierro Neutrophils/100 WBC (Bld) 52.7 % Normal 43.0-75.0 [facility] Comment on above: Performed By: #### P T #### [facility] [address] [address] [address] Tg Fierro Platelet mean volume (Bld) [Entitic vol] 8.7 fL Critically low 9.5-13.5 [facility] Comment on above: Performed By: #### P T #### [facility] [address] [address] [address] Tg Fierro PLT 278 103/ul Normal 150-450 [facility] Comment on above: Performed By: #### P T #### [facility] [address] [address] [address] Tg Fierro RBC 4.07 106/ul Critically low 4.20-5.40 [facility] Comment on above: Performed By: #### P T #### [facility] [address] [address] [address] Tg Fierro WBC 7.7 103/ul Normal 4.0-11.0 [facility] Comment on above: Performed By: #### P T #### [facility] [address] [address] [address] Tg Fierro PROF 14(COMP METB)on 023 Albumin [Mass/Vol] 3.9 g/dL Normal 3.4-5.0 [facility] Comment on above: Performed By: #### C MP #### [facility] [address] [address] [address] Tg Fierro Albumin/Globulin [Mass ratio] 1.4 {ratio} Normal [facility] Comment on above: Performed By: #### C MP #### [facility] [address] [address] [address] Tg Fierro ALP [Catalytic activity/Vol] 59 U/L Normal 46-116 [facility] Comment on above: Performed By: #### C MP #### [facility] [address] [address] [address] Tg Fierro ALT [Catalytic activity/Vol] 21 U/L Normal 14-59 [facility] Comment on above: Performed By: #### C MP #### [facility] [address] [address] [address] Tg Fierro Anion gap [Moles/Vol] 10.8 mmol/L Normal Th e [facility] Comment on above: Performed By: #### C MP #### [facility] [address] [place] [address] Dr. Tg Fierro AST [Catalytic activity/Vol] 9 U/L Critically low 15-37 [facility] Comment on above: Performed By: #### C MP #### [facility] [address] [place] [address] Dr. Tg Fierro Bilirubin [Mass/Vol] 0.3 mg/dL Normal 0.2-1.0 [facility] Comment on above: Performed By: #### C MP #### [facility] [address] [place] [address] Dr. Tg Fierro Calcium [Mass/Vol] 9.1 mg/dL Normal 8.5-10.1 [facility] Comment on above: Performed By: #### C MP #### [facility] [address] [place] [address] Dr. Tg Fierro Chloride [Moles/Vol] 104 mmol/L Normal 98-107 [facility] Comment on above: Performed By: #### C MP #### [facility] [address] [place] [address] Dr. Tg Fierro CO2 [Moles/Vol] 28.3 mmol/L Normal 21.0-32.0 [facility] Comment on above: Performed By: #### C MP #### [facility] [address] [address] [address] Tg Fierro Creatinine [Mass/Vol] 0.86 mg/dL Normal 0.55-1.02 [facility] Comment on above: Performed By: #### C MP #### [facility] [address] [address] [address] Tg Fierro EGFR-AF LUXEMBOURGER >60 Normal >=60 [facility] Comment on above: Performed By: #### C MP #### [facility] [address] [address] [address] Tg Fierro EGFR-NON AF LUXEMBOURGER >60 Normal >=60 [facility] Comment on above: Performed By: #### C MP #### [facility] [address] [address] [address] Tg Fierro Globulin (S) [Mass/Vol] 2.7 g/dL Normal [facility] Comment on above: Performed By: #### C MP #### [facility] [address] [address] [address] Tg Fierro Glucose [Mass/Vol] 120 mg/dL Critically high 74-106 [facility] Comment on above: Performed By: #### C MP #### [facility] [address] [place] [address] Dr. Tg Fierro Potassium [Moles/Vol] 4.1 mmol/L Normal 3.5-5.1 [facility] Comment on above: Performed By: #### C MP #### [facility] [address] [address] [address] Tg Fierro Protein [Mass/Vol] 6.6 g/dL Normal 6.4-8.2 [facility] Comment on above: Performed By: #### C MP #### [facility] [address] [place] [address] Dr. Tg Fierro Sodium [Moles/Vol] 139 mmol/L Normal 136-145 [facility] Comment on above: Performed By: #### C MP #### [facility] [address] [place] [address] Dr. Tg Fierro Urea nitrogen [Mass/Vol] 13.0 mg/dL Normal 7.0-18.0 [facility] Comment on above: Performed By: #### C MP #### [facility] [address] [place] [address] Dr. Tg Fierro Urea nitrogen/Creatinine [Mass ratio] 15.1 mg/mg Normal [facility] Comment on above: Performed By: #### C MP #### [facility] [address] [place] [address] Dr. Tg Fierro PROTIMEon 09-24-2022 INR Coag (PPP) [Relative time] 1.35 {INR} Normal [facility] Comment on above: Performed By: #### P T #### [facility] [address] [place] [address] Dr. Tg Fierro INR GUIDELINES SEE BELOW Normal [facility] Comment on above: Result Comment: LAURENCE RED INR: 2.0 - 3.0 CONDITIONS NOT LISTED BELOW 2.5 - 3.5 FOR PROSTHETIC HEART VALVE REPLACEMENT 2.5 - 3.5 RECURRENT THROMBOSIS Performed By: #### P T #### [facility] [address] [place] [address] Dr. Tg Fierro PT Coag (PPP) [Time] 14.1 s Critically high 9.0-11.6 [facility] Comment on above: Performed By: #### P T #### [facility] [address] [place] [address] Dr. Tg Fierro SED RATE [facility] 2022 SED RATE 8 mm/hr Normal <=30 [facility] Comment on above: Performed By: #### C MP #### [facility] [address] [place] [address] Dr. Tg Fierro PROTIMEon 09-09-2022 INR Coag (PPP) [Relative time] 1.23 {INR} Normal [facility] Comment on above: Performed By: #### P T #### [facility] [address] [place] [address] Dr. Tg Fierro INR GUIDELINES SEE BELOW Normal [facility] Comment on above: Result Comment: LAURENCE RED INR: 2.0 - 3.0 CONDITIONS NOT LISTED BELOW 2.5 - 3.5 FOR PROSTHETIC HEART VALVE REPLACEMENT 2.5 - 3.5 RECURRENT THROMBOSIS Performed By: #### P T #### [facility] [address] [place], [place] [address] Dr. Tg Fierro PT Coag (PPP) [Time] 12.9 s Critically high 9.0-11.6 [facility] Comment on above: Performed By: #### P T #### [facility] [address] [place], [place] [address] Dr. Tg Fierro ECHOCARDIO M/2D COMPLETEon 0 09-02-2022 ECHOCARDIO M/2D COMPLETE Patient: WILDA SEN Exam Date: 09/02/2022 : 1945 Gender:F Ordering : DR JAYME PEREZ . Admission #: [id number] Family : Order #: [id number] CLICK HERE TO VIEW EXAM ECHOCARDIOGRAM REPORT [...] A1Con 2022 ADA RECOMMENDATION SEE BELOW Normal [facility] Comment on above: Result Comment: ADA RECOMMENDED LIMIT 4.0 - 6.0 ADA THERAPEUTIC TARGET < 7.0 ACTION SUGGESTED > 7.0 Performed By: #### A 1C #### [facility] [address] [place] [address] Dr. Tg Fierro Glucose [Mass/Vol] 148 mg/dL Normal [facility] Comment on above: Performed By: #### A 1C #### [facility] [address] [place] [address] Dr. Tg Fierro HbA1c (Bld) [Mass fraction] 6.8 % Critically high 4.5-6.2 [facility] Comment on above: Performed By: #### A 1C #### [facility] [address] [place] [address] Dr. Tg Fierro CBC AUTO DIFFon 08-05-2022 BASO # 0.1 103/ul Normal 0.0-0.1 [facility] Comment on above: Performed By: #### C BC #### [facility] [address] [place] [address] Dr. Tg Fierro Basophils/100 WBC (Bld) 0.8 % Normal 0.2-2.0 [facility] Comment on above: Performed By: #### C BC #### [facility] [address] [place] [address] Dr. Tg Fierro EO # 0.5 103/ul Normal 0.0-0.7 [facility] Comment on above: Performed By: #### C BC #### [facility] [address] [place] [address] Dr. Tg Fierro Eosinophils/100 WBC (Bld) 7.3 % Critically high 0.9-7.0 [facility] Comment on above: Performed By: #### C BC #### [facility] [address] [place] [address] Dr. Tg Fierro Erythrocyte distribution width (RBC) [Ratio] 13.4 % Normal 11.0-15.0 [facility] Comment on above: Performed By: #### C BC #### [facility] [address] [place] [address] Dr. Tg Fierro Hematocrit (Bld) [Volume fraction] 37.1 % Normal 36.0-48.0 [facility] Comment on above: Performed By: #### C BC #### [facility] [address] [place] [address] Dr. Tg Fierro Hemoglobin (Bld) [Mass/Vol] 12.9 g/dL Normal 12.0-16.0 [facility] Comment on above: Performed By: #### C BC #### [facility] [address] [place] [address] Dr. Tg Fierro IG # 0.03 10e3/ul Normal 0.00-0.03 [facility] Comment on above: Performed By: #### C BC #### [facility] [address] [place] [address] Dr. Tg Fierro IG % 0.5 % Normal 0.0-0.5 [facility] Comment on above: Performed By: #### C BC #### [facility] [address] [place] [address] Dr. Tg Fierro LYMPH # 2.3 103/ul Normal 1.2-3.8 [facility] Comment on above: Performed By: #### C BC #### [facility] [address] [place] [address] Dr. gT Fierro Lymphocytes/100 WBC (Bld) 34.9 % Normal 20.5-60.0 [facility] Comment on above: Performed By: #### C BC #### [facility] [address] [place] [address] Dr. Tg Fierro MANUAL DIFF REQ NO Normal The [facility] Comment on above: Performed By: #### C BC #### [facility] [address] [place] [address] Dr. Tg Fierro MCH (RBC) [Entitic mass] 31.0 pg Normal 26.7-34.0 [facility] Comment on above: Performed By: #### C BC #### [facility] [address] [place] [address] Dr. Tg Fierro MCHC (RBC) [Mass/Vol] 34.8 g/dL Normal 29.9-35.2 [facility] Comment on above: Performed By: #### C BC #### [facility] [address] [place] [address] Dr. Tg Fierro MCV (RBC) [Entitic vol] 89.2 fL Normal 81.0-99.0 [facility] Comment on above: Performed By: #### C BC #### [facility] [address] [place] [address] Dr. Tg Fierro MONO # 0.4 103/ul Normal 0.3-0.8 [facility] Comment on above: Performed By: #### C BC #### [facility] [address] [place] [address] Dr. Tg Fierro Monocytes/100 WBC (Bld) 6.1 % Normal 1.7-12.0 [facility] Comment on above: Performed By: #### C BC #### [facility] [address] [place] [address] Dr. Tg Fierro NEUT # 3.3 103/ul Normal 1.4-6.5 [facility] Comment on above: Performed By: #### C BC #### [facility] [address] [place] [address] Dr. Tg Fierro Neutrophils/100 WBC (Bld) 50.4 % Normal 43.0-75.0 [facility] Comment on above: Performed By: #### C BC #### [facility] [address] [place] [address] Dr. Tg Fierro Platelet mean volume (Bld) [Entitic vol] 8.6 fL Critically low 9.5-13.5 [facility] Comment on above: Performed By: #### C BC #### [facility] [address] [place] [address] Dr. Tg Fierro PLT 336 103/ul Normal 150-450 [facility] Comment on above: Performed By: #### C BC #### [facility] [address] [address] [address] Tg Fierro RBC 4.16 106/ul Critically low 4.20-5.40 [facility] Comment on above: Performed By: #### C BC #### [facility] [address] [place] [address] Dr. Tg Fierro WBC 6.4 103/ul Normal 4.0-11.0 [facility] Comment on above: Performed By: #### C BC #### [facility] [address] [place] [address] Dr. Tg Fierro PROF 14(COMP METB)on 023 Albumin [Mass/Vol] 3.9 g/dL Normal 3.4-5.0 [facility] Comment on above: Performed By: #### P T #### [facility] [address] [place] [address] Dr. Tg Fierro Albumin/Globulin [Mass ratio] 1.3 {ratio} Normal [facility] Comment on above: Performed By: #### P T #### [facility] [address] [place] [address] Dr. Tg Fierro ALP [Catalytic activity/Vol] 60 U/L Normal 46-116 [facility] Comment on above: Performed By: #### P T #### [facility] [address] [place] [address] Dr. Tg Fierro ALT [Catalytic activity/Vol] 21 U/L Normal 14-59 [facility] Comment on above: Performed By: #### P T #### [facility] [address] [place] [address] Dr. Tg Fierro Anion gap [Moles/Vol] 15.2 mmol/L Normal [facility] Comment on above: Performed By: #### P T #### [facility] [address] [place] [address] Dr. Tg Fierro AST [Catalytic activity/Vol] 14 U/L Critically low 15-37 [facility] Comment on above: Performed By: #### P T #### [facility] [address] [address] [address] Tg Fierro Bilirubin [Mass/Vol] 0.4 mg/dL Normal 0.2-1.0 [facility] Comment on above: Performed By: #### P T #### [facility] [address] [place] [address] Dr. Tg Fierro Calcium [Mass/Vol] 9.3 mg/dL Normal 8.5-10.1 [facility] Comment on above: Performed By: #### P T #### [facility] [address] [place] [address] Dr. Tg Fierro Chloride [Moles/Vol] 102 mmol/L Normal 98-107 [facility] Comment on above: Performed By: #### P T #### [facility] [address] [place] [address] Dr. Tg Fierro CO2 [Moles/Vol] 26.8 mmol/L Normal 21.0-32.0 [facility] Comment on above: Performed By: #### P T #### [facility] [address] [place] [address] Dr. Tg Fierro Creatinine [Mass/Vol] 0.74 mg/dL Normal 0.55-1.02 [facility] Comment on above: Performed By: #### P T #### [facility] [address] [place] [address] Dr. Tg Fierro EGFR-AF LUXEMBOURGER >60 Normal >=60 [facility] Comment on above: Performed By: #### P T #### [facility] [address] [address] [address] Tg Fierro EGFR-NON AF LUXEMBOURGER >60 Normal >=60 [facility] Comment on above: Performed By: #### P T #### [facility] [address] [address] [address] Tg Fierro Globulin (S) [Mass/Vol] 3.1 g/dL Normal [facility] Comment on above: Performed By: #### P T #### [facility] [address] [address] [address] Tg Fierro Glucose [Mass/Vol] 148 mg/dL Critically high 74-106 T [facility] Comment on above: Performed By: #### P T #### [facility] [address] [address] [address] Tg Fierro Potassium [Moles/Vol] 4.0 mmol/L Normal 3.5-5.1 [facility] Comment on above: Performed By: #### P T #### [facility] [address] [address] [address] Tg Fierro Protein [Mass/Vol] 7.0 g/dL Normal 6.4-8.2 [facility] Comment on above: Performed By: #### P T #### [facility] [address] [address] [address] Tg Fierro Sodium [Moles/Vol] 140 mmol/L Normal 136-145 [facility] Comment on above: Performed By: #### P T #### [facility] [address] [address] [address] Tg Fierro Urea nitrogen [Mass/Vol] 12.0 mg/dL Normal 7.0-18.0 [facility] Comment on above: Performed By: #### P T #### [facility] [address] [address] [address] Tg Fierro Urea nitrogen/Creatinine [Mass ratio] 16.2 mg/mg Normal [facility] Comment on above: Performed By: #### P T #### [facility] [address] [address] [address] Tg Fier[facility] mm/hr Normal <=30 [facility] Comment on above: Performed By: #### S EDR #### [facility] [address] [address] [address] Tg Fierro CBC AUTO DIFFon 04-15-2022 BASO # 0.1 103/ul Normal 0.0-0.1 [facility] Comment on above: Performed By: #### C BC #### [facility] [address] [address] [address] Tg Fierro Basophils/100 WBC (Bld) 0.6 % Normal 0.2-2.0 [facility] Comment on above: Performed By: #### C BC #### [facility] [address] [place] [address] Dr. Tg Fierro EO # 0.2 103/ul Normal 0.0-0.7 [facility] Comment on above: Performed By: #### C BC #### [facility] [address] [place] [address] Dr. Tg Fierro Eosinophils/100 WBC (Bld) 3.1 % Normal 0.9-7.0 [facility] Comment on above: Performed By: #### C BC #### [facility] [address] [place] [address] Dr. Tg Fierro Erythrocyte distribution width (RBC) [Ratio] 13.6 % Normal 11.0-15.0 [facility] Comment on above: Performed By: #### C BC #### [facility] [address] [place] [address] Dr. Tg Fierro Hematocrit (Bld) [Volume fraction] 42.3 % Normal 36.0-48.0 [facility] Comment on above: Performed By: #### C BC #### [facility] [address] [place] [address] Dr. Tg Fierro Hemoglobin (Bld) [Mass/Vol] 13.2 g/dL Normal 12.0-16.0 [facility] Comment on above: Performed By: #### C BC #### [facility] [address] [place] [address] Dr. Tg Fierro IG # 0.04 10e3/ul Critically high 0.00-0.03 [facility] Comment on above: Performed By: #### C BC #### [facility] [address] [place] [address] Dr. Tg Fierro IG % 0.5 % Normal 0.0-0.5 [facility] Comment on above: Performed By: #### C BC #### [facility] [address] [place] [address] Dr. Tg Fierro LYMPH # 2.5 103/ul Normal 1.2-3.8 [facility] Comment on above: Performed By: #### C BC #### [facility] [address] [place] [address] Dr. Tg Fierro Lymphocytes/100 WBC (Bld) 31.6 % Normal 20.5-60.0 [facility] Comment on above: Performed By: #### C BC #### [facility] [address] [place] [address] Dr. Tg Fierro MANUAL DIFF REQ NO Normal [facility] Comment on above: Performed By: #### C BC #### [facility] [address] [place] [address] Dr. Tg Fierro MCH (RBC) [Entitic mass] 30.3 pg Normal 26.7-34.0 [facility] Comment on above: Performed By: #### C BC #### [facility] [address] [place] [address] Dr. Tg Fierro MCHC (RBC) [Mass/Vol] 31.2 g/dL Normal 29.9-35.2 [facility] Comment on above: Performed By: #### C BC #### [facility] [address] [place] [address] Dr. Tg Fierro MCV (RBC) [Entitic vol] 97.0 fL Normal 81.0-99.0 [facility] Comment on above: Performed By: #### C BC #### [facility] [address] [place] [address] Dr. Tg Fierro MONO # 0.5 103/ul Normal 0.3-0.8 [facility] Comment on above: Performed By: #### C BC #### [facility] [address] [place] [address] Dr. Tg Fierro Monocytes/100 WBC (Bld) 6.3 % Normal 1.7-12.0 [facility] Comment on above: Performed By: #### C BC #### [facility] [address] [place] [address] Dr. Tg Fierro NEUT # 4.5 103/ul Normal 1.4-6.5 [facility] Comment on above: Performed By: #### C BC #### [facility] [address] [place] [address] Dr. Tg Fierro Neutrophils/100 WBC (Bld) 57.9 % Normal 43.0-75.0 [facility] Comment on above: Performed By: #### C BC #### [facility] [address] [place] [address] Dr. Tg Fierro Platelet mean volume (Bld) [Entitic vol] 8.6 fL Critically low 9.5-13.5 [facility] Comment on above: Performed By: #### C BC #### [facility] [address] [place] [address] Dr. Tg Fierro PLT 295 103/ul Normal 150-450 [facility] Comment on above: Performed By: #### C BC #### [facility] [address] [place] [address] Dr. Tg Fierro RBC 4.36 106/ul Normal 4.20-5.40 [facility] Comment on above: Performed By: #### C BC #### [facility] [address] [place] [address] Dr. Tg Fierro WBC 7.8 103/ul Normal 4.0-11.0 [facility] Comment on above: Performed By: #### C BC #### [facility] [address] [place] [address] Dr. Tg Fierro PROF 14(COMP METB)on 022 Albumin [Mass/Vol] 4.5 g/dL Normal 3.4-5.0 [facility] Comment on above: Performed By: #### C MP #### [facility] [address] [address] [address] Tg Fierro Albumin/Globulin [Mass ratio] 1.5 {ratio} Normal [facility] Comment on above: Performed By: #### C MP #### [facility] [address] [address] [address] Tg Fierro ALP [Catalytic activity/Vol] 62 U/L Normal 46-116 [facility] Comment on above: Performed By: #### C MP #### [facility] [address] [address] [address] Tg Fierro ALT [Catalytic activity/Vol] 25 U/L Normal 14-59 [facility] Comment on above: Performed By: #### C MP #### [facility] [address] [place] [address] Dr. Tg Fierro Anion gap [Moles/Vol] 10.6 mmol/L Normal [facility] Comment on above: Performed By: #### C MP #### [facility] [address] [place] [address] Dr. Tg Fierro AST [Catalytic activity/Vol] 12 U/L Critically low 15-37 [facility] Comment on above: Performed By: #### C MP #### [facility] [address] [place] [address] Dr. Tg Fierro Bilirubin [Mass/Vol] 0.5 mg/dL Normal 0.2-1.0 [facility] Comment on above: Performed By: #### C MP #### [facility] [address] [place] [address] Dr. Tg Fierro Calcium [Mass/Vol] 9.8 mg/dL Normal 8.5-10.1 [facility] Comment on above: Performed By: #### C MP #### [facility] [address] [place] [address] Dr. Tg Fierro Chloride [Moles/Vol] 102 mmol/L Normal 98-107 [facility] Comment on above: Performed By: #### C MP #### [facility] [address] [place] [address] Dr. Tg Fierro CO2 [Moles/Vol] 31.8 mmol/L Normal 21.0-32.0 [facility] Comment on above: Performed By: #### C MP #### [facility] [address] [address] [address] Tg Fierro Creatinine [Mass/Vol] 0.88 mg/dL Normal 0.55-1.02 [facility] Comment on above: Performed By: #### C MP #### [facility] [address] [address] [address] Tg Fierro EGFR-AF LUXEMBOURGER >60 Normal >=60 [facility] Comment on above: Performed By: #### C MP #### [facility] [address] [address] [address] Tg Fierro EGFR-NON AF LUXEMBOURGER >60 Normal >=60 [facility] Comment on above: Performed By: #### C MP #### [facility] [address] [address] [address] Tg Fierro Globulin (S) [Mass/Vol] 3.1 g/dL Normal [facility] Comment on above: Performed By: #### C MP #### [facility] [address] [address] [address] Tg Fierro Glucose [Mass/Vol] 187 mg/dL Critically high 74-106 T [facility] Comment on above: Performed By: #### C MP #### [facility] [address] [address] [address] Tg Fierro Potassium [Moles/Vol] 4.4 mmol/L Normal 3.5-5.1 [facility] Comment on above: Performed By: #### C MP #### [facility] [address] [address] [address] Tg Fierro Protein [Mass/Vol] 7.6 g/dL Normal 6.4-8.2 [facility] Comment on above: Performed By: #### C MP #### [facility] [address] [place] [address] Dr. Tg Fierro Sodium [Moles/Vol] 140 mmol/L Normal 136-145 [facility] Comment on above: Performed By: #### C MP #### [facility] [address] [place] [address] Dr. Tg Fierro Urea nitrogen [Mass/Vol] 14.0 mg/dL Normal 7.0-18.0 [facility] Comment on above: Performed By: #### C MP #### [facility] [address] [place] [address] Dr. Tg Fierro Urea nitrogen/Creatinine [Mass ratio] 15.9 mg/mg Normal [facility] Comment on above: Performed By: #### C MP #### [facility] [address] [place] [address] Dr. Tg Fierro SED [facility] SED RATE 5 mm/hr Normal <=30 [facility] Comment on above: Performed By: #### S EDR #### [facility] [address] [place] [address] Dr. Tg Fierro CBC AUTO DIFFon 02-07-2022 BASO # 0.0 103/ul Normal 0.0-0.1 [facility] Comment on above: Performed By: #### P T #### [facility] [address] [place] [address] Dr. Tg Fierro Basophils/100 WBC (Bld) 0.6 % Normal 0.2-2.0 [facility] Comment on above: Performed By: #### P T #### [facility] [address] [place] [address] Dr. Tg Fierro EO # 0.4 103/ul Normal 0.0-0.7 [facility] Comment on above: Performed By: #### P T #### [facility] [address] [place] [address] Dr. Tg Fierro Eosinophils/100 WBC (Bld) 5.4 % Normal 0.9-7.0 [facility] Comment on above: Performed By: #### P T #### [facility] [address] [place] [address] Dr. Tg Fierro Erythrocyte distribution width (RBC) [Ratio] 13.5 % Normal 11.0-15.0 [facility] Comment on above: Performed By: #### P T #### [facility] [address] [place] [address] Dr. Tg Fierro Hematocrit (Bld) [Volume fraction] 39.4 % Normal 36.0-48.0 [facility] Comment on above: Performed By: #### P T #### [facility] [address] [place] [address] Dr. Tg Fierro Hemoglobin (Bld) [Mass/Vol] 12.8 g/dL Normal 12.0-16.0 [facility] Comment on above: Performed By: #### P T #### [facility] [address] [place] [address] Dr. Tg Fierro IG # 0.02 10e3/ul Normal 0.00-0.03 [facility] Comment on above: Performed By: #### P T #### [facility] [address] [place] [address] Dr. Tg Fierro IG % 0.3 % Normal 0.0-0.5 [facility] Comment on above: Performed By: #### P T #### [facility] [address] [place] [address] Dr. Tg Fierro LYMPH # 2.4 103/ul Normal 1.2-3.8 [facility] Comment on above: Performed By: #### P T #### [facility] [address] [place] [address] Dr. Tg Fierro Lymphocytes/100 WBC (Bld) 36.2 % Normal 20.5-60.0 [facility] Comment on above: Performed By: #### P T #### [facility] [address] [place] [address] Dr. Tg Fierro MANUAL DIFF REQ NO Normal [facility] Comment on above: Performed By: #### P T #### [facility] [address] [place] [address] Dr. Tg Fierro MCH (RBC) [Entitic mass] 31.0 pg Normal 26.7-34.0 [facility] Comment on above: Performed By: #### P T #### [facility] [address] [address] [address] Tg Fierro MCHC (RBC) [Mass/Vol] 32.5 g/dL Normal 29.9-35.2 [facility] Comment on above: Performed By: #### P T #### [facility] [address] [address] [address] Tg Fierro MCV (RBC) [Entitic vol] 95.4 fL Normal 81.0-99.0 [facility] Comment on above: Performed By: #### P T #### [facility] [address] [place] [address] Dr. Tg Fierro MONO # 0.5 103/ul Normal 0.3-0.8 [facility] Comment on above: Performed By: #### P T #### [facility] [address] [place] [address] Dr. Tg Fierro Monocytes/100 WBC (Bld) 8.0 % Normal 1.7-12.0 [facility] Comment on above: Performed By: #### P T #### [facility] [address] [place] [address] Dr. Tg Fierro NEUT # 3.3 103/ul Normal 1.4-6.5 [facility] Comment on above: Performed By: #### P T #### [facility] [address] [place] [address] Dr. Tg Fierro Neutrophils/100 WBC (Bld) 49.5 % Normal 43.0-75.0 [facility] Comment on above: Performed By: #### P T #### [facility] [address] [place] [address] Dr. Tg Fierro Platelet mean volume (Bld) [Entitic vol] 8.7 fL Critically low 9.5-13.5 [facility] Comment on above: Performed By: #### P T #### [facility] [address] [place] [address] Dr. Tg Fierro PLT 276 103/ul Normal 150-450 [facility] Comment on above: Performed By: #### P T #### [facility] [address] [address] [address] Tg Fierro RBC 4.13 106/ul Critically low 4.20-5.40 The [facility] Comment on above: Performed By: #### P T #### [facility] [address] [address] [address] Tg Fierro WBC 6.7 103/ul Normal 4.0-11.0 [facility] Comment on above: Performed By: #### P T #### [facility] [address] [place] [address] Dr. Tg Fierro GLYCOHEMOGLOBIN A1Con 2021 ADA RECOMMENDATION SEE BELOW Normal [facility] Comment on above: Result Comment: ADA RECOMMENDED LIMIT 4.0 - 6.0 ADA THERAPEUTIC TARGET < 7.0 ACTION SUGGESTED > 7.0 Performed By: #### A 1C #### [facility] [address] [place] [address] Dr. Tg Fierro Glucose [Mass/Vol] 151 mg/dL Normal [facility] Comment on above: Performed By: #### A 1C #### [facility] [address] [address] [address] Tg Fierro HbA1c (Bld) [Mass fraction] 6.9 % Critically high 4.5-6.2 [facility] Comment on above: Performed By: #### A 1C #### [facility] [address] [place] [address] Dr. Tg Fierro PROF 14(COMP METB)on 022 Albumin [Mass/Vol] 3.8 g/dL Normal 3.4-5.0 [facility] Comment on above: Performed By: #### P T #### [facility] [address] [place] [address] Dr. Tg Fierro Albumin/Globulin [Mass ratio] 1.3 {ratio} Normal [facility] Comment on above: Performed By: #### P T #### [facility] [address] [address] [address] Tg Fierro ALP [Catalytic activity/Vol] 43 U/L Critically low 46-116 [facility] Comment on above: Performed By: #### P T #### [facility] [address] [address] [address] Tg Fierro ALT [Catalytic activity/Vol] 19 U/L Normal 14-59 [facility] Comment on above: Performed By: #### P T #### [facility] [address] [address] [address] Tg Fierro Anion gap [Moles/Vol] 13.7 mmol/L Normal [facility] Comment on above: Performed By: #### P T #### [facility] [address] [address] [address] Tg Fierro AST [Catalytic activity/Vol] 11 U/L Critically low 15-37 [facility] Comment on above: Performed By: #### P T #### [facility] [address] [address] [address] Tg Fierro Bilirubin [Mass/Vol] 0.4 mg/dL Normal 0.2-1.0 [facility] Comment on above: Performed By: #### P T #### [facility] [address] [address] [address] Tg Fierro Calcium [Mass/Vol] 9.1 mg/dL Normal 8.5-10.1 [facility] Comment on above: Performed By: #### P T #### [facility] [address] [address] [address] Tg Fierro Chloride [Moles/Vol] 104 mmol/L Normal 98-107 [facility] Comment on above: Performed By: #### P T #### [facility] [address] [address] [address] Tg Fierro CO2 [Moles/Vol] 28.5 mmol/L Normal 21.0-32.0 [facility] Comment on above: Performed By: #### P T #### [facility] [address] [address] [address] gT Fierro Creatinine [Mass/Vol] 0.77 mg/dL Normal 0.55-1.02 [facility] Comment on above: Performed By: #### P T #### [facility] [address] [address] [address] Tg Fierro EGFR-AF LUXEMBOURGER >60 Normal >=60 [facility] Comment on above: Performed By: #### P T #### [facility] [address] [address] [address] Tg Fierro EGFR-NON AF LUXEMBOURGER >60 Normal >=60 [facility] Comment on above: Performed By: #### P T #### [facility] [address] [address] [address] Tg Fierro Globulin (S) [Mass/Vol] 3.0 g/dL Normal [facility] Comment on above: Performed By: #### P T #### [facility] [address] [address] [address] Tg Fierro Glucose [Mass/Vol] 124 mg/dL Critically high 74-106 [facility] Comment on above: Performed By: #### P T #### [facility] [address] [address] [address] Tg Fierro Potassium [Moles/Vol] 4.2 mmol/L Normal 3.5-5.1 [facility] Comment on above: Performed By: #### P T #### [facility] [address] [address] [address] Tg Fierro Protein [Mass/Vol] 6.8 g/dL Normal 6.4-8.2 [facility] Comment on above: Performed By: #### P T #### [facility] [address] [address] [address] Tg Fierro Sodium [Moles/Vol] 142 mmol/L Normal 136-145 [facility] Comment on above: Performed By: #### P T #### [facility] [address] [address] [address] Tg Fierro Urea nitrogen [Mass/Vol] 12.0 mg/dL Normal 7.0-18.0 [facility] Comment on above: Performed By: #### P T #### [facility] [address] [address] [address] Tg Fierro Urea nitrogen/Creatinine [Mass ratio] 15.6 mg/mg Normal [facility] Comment on above: Performed By: #### P T #### [facility] [address] [address] [address] Tg Fierro SED RATE [facility] 2021 SED RATE 8 mm/hr Normal <=30 [facility] Comment on above: Performed By: #### C MP #### [facility] [address] [place] [address] [address] Fierro COVID Quick Testingon 2020 Result Positive nodila Other Vital Signs Date Time Vital Sign Value Performing Clinician Facility 02-14-2025 15:00-0400 Diastolic blood pressure 65 mm[Hg] Jayme Perez MD Work Phone: [facility] 02-14-2025 15:00-0400 Heart rate 81 /min Jayme Perez MD Work Phone: [facility] 02-14-2025 15:00-0400 Respiratory rate 16 /min Jayme Perez MD Work Phone: [facility] 02-14-2025 15:00-0400 SaO2% (BldA) [Mass fraction] 98 % Jayme Perez MD Work Phone: [facility] 02-14-2025 15:00-0400 Systolic blood pressure 116 mm[Hg] Jayme Perez MD Work Phone: [facility] 02-14-2025 13:03-0400 Body height 160.02 cm Jayme Perez MD Work Phone: [facility] 02-14-2025 13:03-0400 Body temperature 98 [degF] Jayme Perez MD Work Phone: [facility] 02-14-2025 13:03-0400 Body weight 51.34 kg Jayme Perez MD Work Phone: [facility] 01-06-2025 11:39-0400 Body height 160 cm Jayme Perez MD Work Phone: [facility] 01-06-2025 11:39-0400 Body mass index (BMI) [Ratio] 22.5 kg/m2 Jayme Perez MD Work Phone: [facility] 01-06-2025 11:39-0400 Body weight 57.61 kg Jayme Perez MD Work Phone: [facility] 12-22-2024 11:35-0400 Body height 160 cm Jayme Perez MD Work Phone: [facility] 12-22-2024 11:35-0400 Body mass index (BMI) [Ratio] 22.5 kg/m2 Jayme Perez MD Work Phone: [facility] 12-22-2024 11:35-0400 Body weight 57.61 kg Jayme Perez MD Work Phone: [facility] 11-04-2024 13:54-0400 Body height 160 cm Jayme Perez MD Work Phone: [facility] 11-04-2024 13:54-0400 Body mass index (BMI) [Ratio] 22.5 kg/m2 Jayme Perez MD Work Phone: [facility] 11-04-2024 13:54-0400 Body weight 57.61 kg Jayme Perez MD Work Phone: [facility] 11-04-2024 13:54-0400 Diastolic blood pressure 76 mm[Hg] Jayme Perez MD Work Phone: [facility] 11-04-2024 13:54-0400 Heart rate 100 /min Jayme Perez MD Work Phone: [facility] 11-04-2024 13:54-0400 SaO2% (BldA) [Mass fraction] 99 % Jayme Perez MD Work Phone: [facility] 11-04-2024 13:54-0400 Systolic blood pressure 122 mm[Hg] Jayme Perez MD Work Phone: [facility] 07-12-2024 11:03-0500 Diastolic blood pressure 66 mm[Hg] Eugenia SHEPHERD [facility] 07-12-2024 11:03-0500 Heart rate 77 /min Eugenia SHEPHERD [facility] 07-12-2024 11:03-0500 Systolic blood pressure 131 mm[Hg] Eugenia SHEPHERD [facility] 04-15-2024 14:16-0400 Body height 160 cm Jayme Perez MD Work Phone: [facility] 04-15-2024 14:16-0400 Body mass index (BMI) [Ratio] 21.79 kg/m2 Jayme Perez MD Work Phone: [facility] 04-15-2024 14:16-0400 Body weight 55.79 kg Jayme Perez MD Work Phone: [facility] 04-15-2024 14:16-0400 Diastolic blood pressure 70 mm[Hg] Jayme Perez MD Work Phone: [facility] 04-15-2024 14:16-0400 Heart rate 87 /min Jayme Perez MD Work Phone: [facility] 04-15-2024 14:16-0400 SaO2% (BldA) [Mass fraction] 98 % Jayme Perez MD Work Phone: [facility] 04-15-2024 14:16-0400 Systolic blood pressure 120 mm[Hg] Jayme Perez MD Work Phone: [facility] 10-14-2023 09:09-0400 Body temperature 98.6 [degF] Eugenia SHEPHERD [facility] 10-14-2023 09:09-0400 Diastolic blood pressure 61 mm[Hg] Eugenia SHEPHERD [facility] 10-14-2023 09:09-0400 Heart rate 80 /min Eugenia SHEPHERD [facility] 10-14-2023 09:09-0400 Respiratory rate 16 /min Eugenia SHEPHERD [facility] 10-14-2023 09:09-0400 Systolic blood pressure 115 mm[Hg] Eugenia SHEPHERD [facility] 08-13-2023 10:47-0500 Blood Pressure Location Renato SANTACRUZ [facility] 08-13-2023 10:47-0500 Diastolic blood pressure 62 mm[Hg] Renato SANTACRUZ [facility] 08-13-2023 10:47-0500 Heart rate 82 /min Renato SANTACRUZ [facility] 08-13-2023 10:47-0500 Respiratory rate 16 /min Renato SANTACRUZ [facility] 08-13-2023 10:47-0500 Systolic blood pressure 105 mm[Hg] Renato SANTACRUZ [facility] 08-07-2023 09:48-0500 Body height 160 cm Jayme Perez MD Work Phone: [facility] 08-07-2023 09:48-0500 Body mass index (BMI) [Ratio] 24.45 kg/m2 Jayme Perez MD Work Phone: [facility] 08-07-2023 09:48-0500 Body weight 62.6 kg Jayme Perez MD Work Phone: [facility] 08-07-2023 09:48-0500 Heart rate 57 /min Jayme Perez MD Work Phone: [facility] 08-07-2023 09:48-0500 SaO2% (BldA) [Mass fraction] 98 % Jayme Perez MD Work Phone: [facility] 07-25-2023 09:20-0500 Body height 160.02 cm Lou Glover Other nod[facility] Other 07-25-2023 09:20-0500 Body mass index (BMI) [Ratio] 23.91 kg/m2 Lou Glover Other [facility] Other 07-25-2023 09:20-0500 Body temperature 97.7 [degF] Lou Glover Other [facility] Other 07-25-2023 09:20-0500 Body weight 61.24 kg Lou Glover Other [facility] Other 07-25-2023 09:20-0500 Diastolic blood pressure 74 mm[Hg] Lou Glover Other [facility] Other 07-25-2023 09:20-0500 Respiratory rate 18 /min Lou Glover Other [facility] Other 07-25-2023 09:20-0500 SaO2% (BldA) [Mass fraction] 96 % Lou Glover Other [facility] Other 07-25-2023 09:20-0500 Systolic blood pressure 120 mm[Hg] Lou Glover Other [facility] Other 03-26-2023 13:15-0400 Body height 160.02 cm MD Jayme Perez Work Phone: [facility] 03-26-2023 13:15-0400 Body temperature 98.2 [degF] MD Jayme Perez Work Phone: [facility] 03-26-2023 13:15-0400 Body weight 66 kg MD Jayme Perez Work Phone: [facility] 03-26-2023 13:15-0400 Diastolic blood pressure 71 mm[Hg] MD Jayme Perez Work Phone: [facility] 03-26-2023 13:15-0400 Heart rate 87 /min MD Jayme Perez Work Phone: [facility] 03-26-2023 13:15-0400 Respiratory rate 16 /min MD Jayme Perez Work Phone: [facility] 03-26-2023 13:15-0400 SaO2% (BldA) [Mass fraction] 97 % MD Jayme Perez Work Phone: [facility] 03-26-2023 13:15-0400 Systolic blood pressure 117 mm[Hg] MD Jayme Perez Work Phone: [facility] 05-21-2021 13:15-0500 Body height 160.02 cm Astrid Baker Other [facility] Other 05-21-2021 13:15-0500 Body mass index (BMI) [Ratio] 23.91 kg/m2 Astrid Baker Other [facility] Other 05-21-2021 13:15-0500 Body temperature 97.3 [degF] Astrid Baker Other [facility] Other 05-21-2021 13:15-0500 Body weight 61.24 kg Astrid Baker Other [facility] Other 05-21-2021 13:150500 SaO2% (BldA) [Mass fraction] 94 % Astrid Baker Other [facility] Other Encounters Encounter Date Encounter Type Care Provider Facility Start: 04-05-2025 End: 04-05-2025 Clinisync Result Encounter Jayem Perez MD Work Phone: [facility] Unsolicited Start: 04-05-2025 End: 04-05-2025 Clinisync Result Encounter Jayme Perez MD Work Phone: [facility] Unsolicited Start: 03-08-2025 End: 03-08-2025 Clinisync Result Encounter Jayme Perez MD Work Phone: [facility] Unsolicited Start: 03-08-2025 End: 03-08-2025 Clinisync Result Encounter Jayme Perez MD Work Phone: [facility] Unsolicited Start: 02-14-2025 End: 02-14-2025 Admission to same day surgery center Eugenia Venegas [facility] Start: 02-14-2025 End: 02-14-2025 ambulatory Jayme Perez MD Work Phone: [facility] Work Phone: Start: 02-14-2025 End: 02-14-2025 ambulatory Eugenia SHEPHERD Facility:[id number] Start: 02-11-2025 End: 02-11-2025 Patient encounter procedure Kristie POLANCO-BC -Electrodiagnostics Work Phone: Start: 02-11-2025 End: 02-11-2025 ambulatory Jayme Perez MD Work Phone: [facility] Work Phone: Start: 02-08-2025 End: 02-08-2025 Telephone [...] Start: 02-04-2025 End: 02-04-2025 ambulatory Lobito Tapia [facility] Work Phone: Start: 02-04-2025 End: 02-04-2025 Departed Referred Lobito Mejias DO -LAB [facility] Start: 02-02-2025 End: 02-02-2025 Clinisync [...] Start: 01-31-2025 End: 01-31-2025 ambulatory Eugenia SHEPHERD Facility:[id number] Start: 01-21-2025 End: 01-21-2025 Clinisync Result [...] 01-05-2025 End: 01-05-2025 Bamboo flowsheet Clara Kelbley PHOTOGRAPHY INTERN [facility] Start: 01-05-2025 End: 01-05-2025 Bamboo flowsheet Clara Kelbley PHOTOGRAPHY INTERN [facility] Start: 01-05-2025 End: 01-05-2025 ambulatory Clara Kelbley PHOTOGRAPHY INTERN [facility] Comment on above: Vertigo (Primary Dx) Start: 12-31-2024 End: 12-31-2024 Bamboo flowsheet Clara Kelbley PHOTOGRAPHY INTERN [facility] Start: 12-31-2024 End: 12-31-2024 Bamboo flowsheet Clara Kelbley PHOTOGRAPHY INTERN [facility] Start: 12-31-2024 End: 12-31-2024 ambulatory Clara Kelbley PHOTOGRAPHY INTERN [facility] Comment on above: Vertigo (Primary Dx) Start: 12-29-2024 End: 12-29-2024 Bamboo flowsheet Clara Kelbley PHOTOGRAPHY INTERN [facility] Start: 12-29-2024 End: 12-29-2024 Bamboo flowsheet Clara Kelbley PHOTOGRAPHY INTERN [facility] Start: 12-29-2024 End: 12-29-2024 ambulatory Clara Whitten PHOTOGRAPHY INTERN [facility] Comment on above: Vertigo (Primary Dx) Start: 12-23-2024 End: 12-23-2024 Bamboo flowsheet Joselyn Narvaez PT [facility] Start: 12-23-2024 End: 12-23-2024 Bamboo flowsheet Joselynpinky Narvaez PT [facility] Start: 12-23-2024 End: 12-23-2024 ambulatory Joselyn Brice PT [facility] Comment on above: [...] (Primary Dx) ; 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 (HCC); [facility] current use of anticoagulant; Medication monitoring encounter [...] diastolic heart failure (CMS/HCC); 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 (CMS/HCC); Stage 3a chronic kidney disease (HCC) (CMS/HCC); Age-related osteoporosis without current pathological fracture (CMS/HCC); Psoriatic arthropathy (CMS/HCC); Type 2 diabetes mellitus with stage 3a chronic kidney disease, without long-term current use of insulin (HCC) (CMS/HCC); Type 2 diabetes mellitus with diabetic microalbuminuria, without long-term current use of insulin (CMS/HCC); Immunosuppressed status (CMS/HCC) Start: 11-04-2024 End: 11-04-2024 ambulatory JAYME PEREZ [...] (HCC) (CMS/HCC); Microalbuminuria; 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 (CMS/HCC); [facility] current use of anticoagulant Start: 10-21-2024 End: [...] on above: Paroxysmal atrial fi brillation (CMS/HCC) Start: 10-09-2024 End: 10-11-2024 Refill Jayme Perez MD Work Phone: [facility] Comment on above: Type 2 diabetes nancie itus with stage 3a chronic kidney disease, without long-term current use of insulin (HCC) (CMS/HCC) Start: 09-27-2024 End: 09-27-2024 Clinisync Result Encounter [...] Bamboo flowsheet Felicia Farmer DO Work Phone: [facility] Start: 08-04-2024 End: 08-04-2024 Bamboo [...] Start: 07-12-2024 End: 07-12-2024 ambulatory Eugenia SHEPHERD Facility:[facility] Start: 07-12-2024 End: 07-12-2024 Patient encounter procedure Eugenia Vengeas CORA [facility] Start: 07-01-2024 End: 07-01-2024 Clinisync Result Encounter [...] Paroxysmal atrial fi brillation (CMS/HCC) (Primary Dx); 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; Type 2 diabetes [...] encounter procedure MD Jayme Perez Work Phone: [facility] [address] Work Phone: Start: 03-31-2024 End: 03-31-2024 ambulatory MD Jayme Perez Work Phone: [facility] Work Phone: Start: 03-29-2024 [...] without long-term current use of insulin (HCC) ([facility]) Start: 03-17-2024 End: 03-17-2024 Clinisync Result Encounter Jayme Perez MD Work Phone: [facility] Unsolicited Start: 03-17-2024 End: 03-17-2024 Clinisync Result Encounter Jayme Perez MD Work Phone: [facility] Unsolicited Start: 10-14-2023 End: 10-14-2023 Patient encounter procedure Eugenia SHEPHERD [facility] Start: 08-20-2023 Clinisync Result Encounter Generic External Data Provider [facility] Unsolicited Start: 08-20-2023 Clinisync Result Encounter Generic External Data Provider [facility] Unsolicited Start: 08-13-2023 End: 08-13-2023 Patient encounter procedure Renato Arzola ANGELITO [facility] Start: 08-07-2023 End: 08-07-2023 Office outpatient visit 25 minutes Jayme Perez MD Work Phone: [facility] Comment on above: Chronic diastolic he art failure (CMS/HCC) (Primary Dx); 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 (CMS/HCC); Type 2 diabetes mellitus with stage 3a chronic kidney disease, without long-term current use of insulin (HCC) (CMS/HCC); Stage 3a chronic kidney disease (HCC) (CMS/HCC); Microalbuminuria; Former smoker; 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, adult; [facility] current use of anticoagulant; Psoriatic arthropathy (CMS/HCC); Gastroesophageal reflux disease without esophagitis Start: 07-25-2023 End: 07-25-2023 ambulatory Lou Glover Other [facility] Other Start: 07-25-2023 Office outpatient vi sit 25 minutes Lou Glover [facility] [place] Start: 04-07-2023 End: 04-07-2023 ambulatory MD Jayme Perez Work Phone: [facility] Work Phone: Start: 04-07-2023 End: 04-07-2023 Departed Referred MD Jayme Perez Work Phone: [facility] [place] Start: 03-26-2023 End: 03-26-2023 Patient encounter procedure MD Jayme Perez Work Phone: [facility]-Pre-Surgical Testing Work Phone: Start: 03-20-2023 End: 03-20-2023 Lab Drop off Eugenia SHEPHERD [facility] Start: 03-20-2023 End: 03-20-2023 Patient encounter procedure Eugenia SHEPHERD [facility] Start: 11-11-2022 End: 12-11-[address] [...] 05-21-2021 End: 05-21-2021 ambulatory Astrid Baker Other Mora Ahaali Other Start: 05-21-2021 Office outpatient vi sit 15 minutes Astrid Baker [facility] [place] Procedures Date Procedure Procedure Detail Performing Clinician Start: 04-05-2025 [facility] PROTHROMBIN T RAMIRO INR W/O COUM Jayme Perez MD Work Phone: Start: 03-08-2025 [facility] PROTHROMBIN T RAMIRO INR W/O COUM Jayme Perez MD Work Phone: Start: 02-14-2025 Cystoscopy Jayme marroquin MD Work Phone: Start: 02-14-2025 Supine abdominal X-ray Jayme Perez MD Work Phone: Start: 02-04-2025 Urine culture Jayme camargo MD Work Phone: Start: 02-04-2025 URINE CULTURE - [facility] Ge neric External Data Provider Start: [...] DIFF Generic External Data Provider Start: 11-02-2024 [facility] MICROALB CREAT R ATIO RANDOM Jayme Perez [...] 07-19-2024 [facility] PROTHROMBIN T RAMIRO INR W/O KRISTY Perez MD Work Phone: Start: 07-01-2024 [facility] PROTHROMBIN T RAMIRO INR W/O COUM Jayme Perez MD Work Phone: Start: 06-16-2024 ALL CBC WITH AUTO DIFF Generic External Data Provider Start: 05-14-2024 [facility] PROTHROMBIN T RAMIRO INR W/O COUM Jayme Perez MD Work Phone: Start: 04-22-2024 [facility] CREAT[facility] Jayme Perez MD Work Phone: [...] External Data Provider Start: 08-14-2023 Lithotripsy Eugenia WEBB [place] Start: 08-26-2019 Extracorporeal shock wave [...] into ureter Eugenia SHEPHERD Abdominal hysterectomy Bhavesh SANTACRUZ Appendectomy Renato SNATACRUZ Extraction of cataract Bhavesh SANTACRUZ Partial lobectomy of lung Pa gamal SANTACRUZ Tonsillectomy Renato SANTACRUZ Plan of Treatment Date Care Activity Detail Author Start: 08-04-2026 Glaucoma screening Diabetes: Retinopathy Screening [facility] Start: 12-30-2025 Glaucoma screening Diabetes: Retinopathy Screening [facility] Start: 11-02-2025 Urine screening for protein Diabetes: Urine Protein Screening [facility] Start: 09-13-2025 Pneumococcal Vaccine: 65+ Years (1 of 2 - PCV) Pneumococcal Vaccine: 65+ Years (1 of 2 - PCV) [facility] Comment on above: Postponed from 1951 (Patient Refus ed) Postponed from 04/06 (Patient Refused) Start: 05-19-2025 Glaucoma screening Diabetes: Retinopathy Screening [facility] Start: 04-19-2025 Hemoglobin A1c measurement Diabetes: Hemoglobin A1C [facility] Start: 03-27-2025 End: 10-25-2025 Hemoglobin A1c/Hemoglobin.total in Blood Hemoglobin A1c Lab Routine Type 2 diabetes mellitus with stage 3a chronic kidney disease, without long-term current use of insulin (HCC) ([facility]) Expected: 03/27/2025 (Approximate), Expires: 10/25/[address] [facility] Comment on above: Expected: 03/27/2025 (Approximate), Expi res: 10/25/2025 Start: 03-14-2025 Influenza vaccination [facility] Start: 02-14-2025 [facility] Start: 02-14-2025 [facility] Start: 02-14-2025 Supine abdominal X-ray [facility] Start: 02-14-2025 [facility] Start: 02-08-2025 End: 02-08-2025 Patient encounter procedure 02/08/2025 10:30 AM EDT Office Visit [facility] [address] [place] [id number] Jayme Perez MD [address] [place] [address] (Fax) [facility] Start: 02-04-2025 Bacteria identified in Urine by Culture Urine Culture [facility] Start: 02-04-2025 Urine culture [facility] Start: 02-02-2025 End: 02-02-2025 Patient encounter procedure 02/02/2025 1:30 PM EDT Office Visit [facility] [address] [place] [id number] Felicia Farmer DO [address] [place] [address] [facility] Start: 01-10-2025 Influenza vaccination Influenza Vaccine (#1) [facility] Comment on above: Postponed from 03/14/2024 (Patient Refus ed) Start: 01-10-2025 End: 01-10-2025 ambulatory 01/10/2025 11:00 AM EDT Treatment [facility] [address] [place] [address] Joselyn Narvaez, PT [facility] Start: 01-07-2025 End: 01-07-2025 ambulatory 01/07/2025 12:00 PM EDT Treatment [facility] [address] [place] [id number] Clara Whitten, CARA [facility] Start: 01-05-2025 End: 01-05-2025 ambulatory [facility] Comment on above: Arrived Start: 12-31-2024 End: 12-31-2024 ambulatory [facility] Comment on above: Vertigo (Primary Dx) Start: 12-29-2024 End: 12-29-2024 ambulatory [facility] Comment on above: Arrived Start: 12-23-2024 End: 12-23-2024 ambulatory 12/23/2024 12:30 PM EDT Evaluation [facility] [address] [place] [address] Joselyn Narvaez, PT Vertigo (Primary Dx) [facility] Comment on above: Vertigo (Primary Dx) Start: 12-22-2024 End: 12-22-2024 Patient encounter procedure 12/22/2024 11:45 AM EDT Office Visit [facility] [address] [place] [address] Jayme Perez MD [address] [place] [address] (Fax) Arrived [facility] Comment [...] (CMS/HCC) Stage 3a chronic kidney disease (HCC) ([facility]/HCC) Microalbuminuria Expected: 10/25/2024 (Approximate), Expires: 10/25/2025 [facility] Work Phone: Comment on above: Expected: 10/25/2024 (Approximate), Expi res: 10/25/2025 Start: 10-21-2024 End: 10-21-2024 Patient encounter procedure [facility] Comment on above: Type 2 diabetes mellitus with stage 3a c hronic kidney disease, without long-term current use of insulin (HCC) (CMS/HCC); Stage 3a chronic kidney disease (HCC) (CMS/HCC); Microalbuminuria; 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 (CMS/HCC); [facility] current use of anticoagulant Start: 10-14-2024 End: 04-15-2025 T3, reverse T3, reverse Lab Routine Chronic fatigue Expected: 10/14/2024 (Approximate), Expires: 04/15/2025 [facility] Comment on above: Expected: 10/14/2024 [...] Chronic fatigue Expected: 10/14/2024 (Approximate), Expires: 04/15/2025 [facility] Work Phone: Comment on above: Expected: 10/14/2024 (Approximate), Expi res: 04/15/2025 Start: 10-14-2024 End: 04-15-2025 Triiodothyronine (T3) Free [Mass/volume] in Serum or Plasma T3, free Lab Routine Chronic fatigue Expected: 10/14/2024 (Approximate), Expires: 04/15/2025 [facility] Comment on above: Expected: 10/14/2024 (Approximate), Expi res: 04/15/2025 Start: 08-04-2024 End: 08-04-2024 Patient encounter procedure [facility] Comment on above: Arrived Start: 05-22-2024 Medicare Annual Wellness (AWV) Medicare Annual Wellness (AWV) [facility] Start: 04-15-2024 End: 04-15-2024 Patient encounter procedure 04/15/2024 2:30 PM EDT Office Visit [facility] [address] [facility] [address] [place] [address] Jayme Perez MD [address] [facility] [place] [address] (Fax) [facility] Start: 03-14-2024 Influenza vaccination Influenza Vaccine (#1) [facility] Start: 10-26-2023 Urine screening for protein Diabetes: Urine Protein Screening [facility] Start: 09-01-2023 End: 09-01-2023 Patient encounter procedure 09/01/2023 10:30 AM EST Office Visit [facility] [address] [place] [id number] Felicia Farmer DO [address] [place] [address] [facility] Start: 05-06-2023 Hemoglobin A1c measurement Diabetes: Hemoglobin A1C [facility] Start: 04-07-2023 Abdomen endoscopy OR Cysto/Retro/Stent/Stone/H olmium Laser (Right) [facility] Start: 03-14-2023 Influenza vaccination Influenza Vaccine (#1) [facility] Start: 09-12-2020 Urine screening for protein Diabetes: Urine Protein Screening [facility] Start: 1951 Pneumococcal Vaccine: 65+ Years (1 - PCV) Pneumococcal Vaccine: 65+ Years (1 - PCV) [facility] Start: 1951 Pneumococcal Vaccine: 65+ Years (1 of 2 - PCV) Pneumococcal Vaccine: 65+ Years (1 of 2 - PCV) [facility] Start: 1946 Skin Cancer Screening Skin Cancer Screening [facility] Bilirubin measurement [facility] BLOOD CULTURE 1 BLOOD CULTURE 1 Lab Routine 01/31/2025 9:50 AM EDT [facility] BLOOD CULTURE 2 BLOOD CULTURE 2 Lab Routine 01/31/2025 9:56 AM EDT [facility] Body weight [facility] Calcium carbonate/To sayda in [facility] Calcium hydrogen phosphate dihydrate/Total in Stone [facility] Calcium oxalate monohydrate/Total in Stone [facility] Calcium phosphate level [facility] Calculus analysis wi th calculus photography [Interpretation] in Stone [facility] Calculus analysis, qualitative [facility] Calculus analysis, quantitative [facility] Calculus analysis, quantitative, infrared spectroscopy [facility] Cellular material [Mass/mass] of Stone by Estimated [facility] Cholesterol [Mass/vo lume] in Serum or Plasma [facility] Cystine measurement [facility] Determination of jeremie culus chemical composition [facility] Evaluation procedure [facility] Hydroxyapatite [Ener gy Difference] in 24 hour Urine [facility] Laboratory data interpretation [facility] Newberyite/Total in Stone Fi [facility] Patient Education Know your Meds [facility] Work Phone: Patient referral [facility] Work Phone: Specimen source subj ect [Type] [facility] Triamterene measurement [facility] Triple phosphate/Tot al in Stone [facility] URINE CULTURE - [facility] URINE CULTU RE - [facility] Lab Routine 02/04/2025 1:19 PM EDT [facility] Immunizations Immunization Date Immunization Notes Care Provider Yaya oswald NEGATED: Highlighted row has not occurred!08-13-2023 influenza virus vaccine, unspecified formulation [employer] [facility] NEGATED: Highlighted row has not occurred!08-13-2023 SARS-CoV-2 mRNA (tozinameran 5y-11y) vaccine [employer] [facility] NEGATED: Highlighted row has not occurred!09-21-2019 influenza virus vaccine, live, attenuated, for intranasal use [employer] [facility] NEGATED: Highlighted row has not occurred!08-20-2019 influenza virus vaccine, live, attenuated, for intranasal use [employer] [facility] Ju Payers Date Payer Category Payer Self-pay [id number] 2023 Private Health Insurance [id number] 2023 Medicare [id number] [id number] 2022 Unknown [employer] [id number] 2022-Present [address] [address] [place] [address] [id number] .2.7.3.126383.315 2002 Medicare [id number]. 1.13.693 .2.7.3.044245.315 1959 Medicare [id number] 2.16.840.1.488577.19 1959 Unknown [id number] 1946 Unknown [id number] 2.16.840.1.617157.3.579 .2.593 1946 Unknown [id number] 2.16.840.1.311421.3.579 .2.593 1946 Unknown [id number] 2.16.840.1.423009.3.579 .2.593 1946 Unknown [id number] 2.16.840.1.891437.3.579 .2.593 1946 Unknown [id number] 2.16.840.1.934883.3.579 .2.593 1946 Unknown [id number] 2.16.840.1.030977.3.579 .2.593 1946 Unknown [id number] 2.16.840.1.388610.3.579 .2.593 1946 Unknown [id number] 2.16.840.1.489799.3.579 .2.593 1946 Unknown [id number] 2.16840.1.321348.3.579 .2.593 1946 Unknown [id number] 2.16840.1.430875.3.579 .2.593 1946 Unknown [id number] 2.16840.1.042333.3.579 .2.593 1946 Unknown [id number] 2.16840.1.183381.3.579 .2.59 1946 Unknown [id number] 2.840.1.482943.3.579 .2.593 1946 Unknown [id number] 2.840.1.434042.3.579 .2.125 1946 Unknown [id number] 2.840.1.990478.3.579 .2.125 1946 Unknown [id number] 2.840.1.912325.3.579 .2.125 1946 Unknown [id number] 2.840.1.287886.3.579 .2.125 1946 Unknown [id number] 2.840.1.275754.3.579 .2.125 1946 Unknown [id number] 2.840.1.982745.3.579 .2.125 1946 Unknown [id number] 2.16840.1.261325.3.579 .2.125 1946 Unknown [id number] 2.16840.1.388796.3.579 .2.125 1946 Unknown [id number] 2.840.1.894009.3.579 .2.125 1946 Unknown [id number] 2.16.840.1.819837.3.579 .2.1259 1946 Unknown [id number] 2.16.840.1.608659.3.579 .2.1259 1946 Unknown [id number] 2.16.840.1.203044.3.579 .2.1259 1946 Unknown [id number] 2.16.840.1.795484.3.579 .2.727 1946 Unknown [id number] 2.16.840.1.854607.3.579 .2.727 1946 Unknown [id number] 2.16.840.1.599887.3.579 .2.727 Unknown [id number] 2.16.840.1.105130.3.579 .2.531 Unknown [id number] 2.16.840.1.341273.3.579 .2.531 Unknown [id number] 2.16.840.1.954084.3.579 .2.531 Unknown [id number] 2.16.840.1.317186.3.579 .2.531 Social History Date Type Detail Facility Sex Assigned At [facility] [facility] Other Start: 02-03-2023 End: 04-15-2024 Tobacco smoking status Ex-smoker (finding) [facility] Tobacco smoking status Never [facility] Start: 12-11-2022 End: 04-08-2024 Sex Assigned At Female [facility] Start: 1945 Sex Assigned At [facility] End: 07-14-1986 History of tobacco use Current smoker [facility] End: 07-14-1986 History of tobacco use Cigarette Smoker [facility] Start: 08-07-2023 End: 04-15-2024 Tobacco use and exposure Smokeless tobacco non-user [facility] Start: 08-07-2023 End: 02-14-2025 Alcohol intake [...] at all [facility] Sex Female (finding) [facility] Goals Date Patient Goal Desired Activity /State Functional Status Date Assessment Result Facility 11-04-2024 Patient Health Quest ionnaire 2 item (PHQ-2) [Reported] [facility] 10-25-2024 Patient Health Quest ionnaire 2 item (PHQ-2) [Reported] [facility] 07-12-2024 Functional Status N/A [facility] 10-14-2023 Functional Status N/A [facility] 08-13-2023 Functional Status N/A [facility] Clinical Notes 02-21-2022 to 02-08-2025 Telephone Encounter - Magalis Harris MA - 02/08/2025 12:30 PM EDTTelephone Encounter - Magalis Harris MA - 02/08/2025 12:29 PM Suad Perez MD - 02/08/2025 10:30 AM EDT Note Date & Type Note Facility 02-08-2025 Telephone encount er Note Copied from from pt: Yenakul, this is Jocelyn Sen, [id number]. I forgot to ask Dr. Persaud when I should start taking my warfare again and he's going to be off for a while, so I thought I'd better try and find out now. [phone], thank you. [facility] 02-08-2025 Telephone encount er Note Copied from : The is [facility] pharmacy calling concerning the prescriptions for Wilda Sen birthday [id number] have a prescription for Roberto F on [...] as well. Thank you so much by. [facility] 02-08-2025 History of Presen t illness Narrative Images from the original note were not included. Patient ID: Wilda Sen is a 79 y.o. female who presents for: Hospital Follow up kidney stones Flowsheet Row Patient Outreach from 02/08/2025 in [facility] with Klaudia Terrell LPN Hospital Information ED, Hospital or Snf Facility Discharge? ED Patient has been contacted within 2 days of being seen in the ED No [unable to reach] Have two attempts been made, within 2 days of being seen in the ED, to contact the patient? Yes Diagnosis uretral Colic, Hydronephrosis with ureteral calculus, kidney stone Discharge Date 02/04/25 Discharged To: Home Setting Discharge Hospital [facility] Admission Date 02/04/25 Medications Discharge medications reviewed [...] transition of care note is reviewed. a unaf-zj-isem evaluation is done today. Medical decision making is complex in degree. Please Note: Portions of this chart may have been created using voice recognition software. Occasionally a wrong-word or sound-like substitutions may have occurred due to inherent limitations of the voice recognition software. Please read the chart carefully and recognize, using context, where the substitutions may have occurred. documented in this encounter [facility] 01-06-2025 History of Presen t illness Narrative [...] tablet; Refill: 0 documented in this encounter [facility] 12-22-2024 History of Presen t illness Narrative [...] 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 (HCC) - Protime-INR 3. 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 - Protime-INR 4. Medication monitoring encounter - Protime-INR documented in this encounter [facility] 11-24-2024 History of Presen t illness Narrative [...] in 2 weeks. documented in this encounter [facility] 11-04-2024 History of Presen t illness Narrative [...] Yes Vision Screening: Yes, patient sees regular audio visual specialist/validation leader Hearing Screening: Not done Cognitive Screening Self [...] mention of hemorrhage)(562.11) Duodenitis Esophageal reflux intermediate manager (current) use of insulin (CMS/HCC) Melanoma of shoulder, right (CMS/HCC) 11/2014 going to Other psoriasis (CMS/HCC) Other specified malignant neoplasm of skin of other parts of face Personal history of renal calculi Personal history of skin cancer Psoriatic arthropathy (CMS/HCC) Renal calculus, right 02/2016 Dr. Shepherd Situational depression ([facility]/HCC) Type 2 diabetes mellitus without complications SURGICAL [...] 08/2019 MELANOMA 10/2014 excision right posterior shoulder MD REMOVAL OF LUNG 1986 pneumonectomy SCREENING MAMMOGRAM, [...] m BP Readings from Last 3 Encounters: 04/24/25 122/76 04/15/24 120/70 05/22/23 118/68 Wt Readings [...] through a living will, durable power of finance attorney for healthcare, or other advanced directives. [...] and monitor longitudinally. documented in this encounter [facility] 11-02-2024 History of Presen t illness Narrative Reviewed microalbuminuria test Updated problem list. documented in this encounter [facility] 10-30-2024 Evaluation note Diagnosis Type 2 diabetes mellitus with stage 3a chronic kidney disease, without long-term current use of insulin (HCC) (CMS/HCC) Stage 3a chronic kidney disease (HCC) (CMS/HCC) Microalbuminuria Proteinuria 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 ([facility]/HCC) Atrial fibrillation [facility] current use of anticoagulant Encounter for Medicare annual wellness exam Advance directive discussed with patient Encounter for screening for other disorder Screening for alcohol problem Screening for alcoholism Screening mammogram, encounter for documented [id number] History of Present illness Narrative* Jayme Perez [...] (HCC) (CMS/HCC) Chronic problem, stable, to goal. As noted [...] 5MG Dispense: 90 tablet; Refill: 1 5. 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 As above Chronic [...] of evaluation and management. documented in this encounter[facility] [id number] Miscellaneous Notes* Telephone Encounter - Magalis Harris MA - 02/08/2025 12:30 PM EDT Copied from from pt: Rafael, this is Jocelyn eSn, [id number]. I forgot to ask Dr. Persaud when I should start taking my warfare again and he's going to be off for a while, so I thought I'd better try and find out now. [phone], thank you. * Telephone Encounter - Magalis Harris MA - 02/08/2025 12:29 PM EDT Copied from : The is [facility] pharmacy calling concerning the prescriptions for Wilda Sen birthday [id number] have a prescription for Roberto F on [...] you so much by. documented in [facility] LouisRsohefqudv35-80-7182 Evaluation note* Diagnosis Type 2 diabetes mellitus with stage 3a chronic kidney disease, without long-term current use of insulin (HCC) ([facility]/HCC) documented [facility] encounter [facility] LouisLyrrmqgxob76-28-0002 History of Present illness Narrative* Felicia Farmer [...] lid scrubs were recommended. documented in this encounterMer[facility]. LouisLoktgmyhhp55-57-4578 Evaluation note* Diagnosis Glaucoma suspect of both eyes- Primary Unspecified preglaucoma Type 2 diabetes mellitus with stage 3a chronic kidney disease, without long-term current use of insulin ([facility]) ([facility]) Dry eyes Unspecified tear film insufficiency Blepharitis of upper and lower eyelids of both eyes, unspecified type documented in this encounter [facility] LouisPlxrmsouwl85-17-7300 Hospital Discharge instructions Patient Education 07/12/2024 11:44:44 [...] include: ?8 oz (237 mL) of milk, dgfnxuk-fguwjaylwdee-jmipz milk, and calcium- fortifiedfruit juice. Calcium-fortified means [...] ?Spinach (cooked), rhubarb, beets, sweet potatoes, and Malagasy chard. ?Peanuts. ?Potato chips, gabonese fries, and baked potatoes with skin on. ?Nuts and nut products. ?Chocolate. If you regularly take a diuretic medicine, make sure to eat at least 1 or 2 servings of fruits or vegetables that are high in potassium each day. These include: ?Avocado. ?Banana. ?Tucker, prune, carrot, or tomato juice. ?Baked potato. [...] magnesium, fish oil, or vitamin B6. Take oobd-nsq-kexcdpq and prescription medicines only as told by [...] Casseroles. Pizza. Lasagna. Frozen meals. Potato chips. Kyrgyz fries. The items listed above may not [...] provider. Document Revised: 10/10/2022 Document Reviewed: 10/10/2022 [employer] Patient Education 2023 [employer]. Follow Up Care 02/03/2023 12:01:32 With:CORA AGUIAR, Eugenia Venegas, URL Address: [facility] [place] [address]- When: Unknown [facility] Ju [id number] NotePatient Education Nephrology Dietary Guidelines to Help [...] ? 8 oz (237 mL) of milk, ffyqumw-lukokpoiblni-tzadw milk, and calcium- fortifiedfruit juice. Calcium-fortified means [...] Spinach (cooked), rhubarb, beets, sweet potatoes, and Malagasy chard. ? Peanuts. ? Potato chips, gabonese fries, and baked potatoes with skin on. ? Nuts and nut products. ? Chocolate. ??? If you regularly take a diuretic medicine, make sure to eat at least 1 or 2 servings of fruits or vegetables that are high in potassium each day. These include: ? Avocado. ? Banana. ? Tucker, prune, carrot, or tomato juice. ? Baked [...] fish oil, or vitamin B6. ??? Take kvdp-wcm-ygtvtnk and prescription medicines only as told by your health (more content not included)...[facility]12-19-2024 Telephone encounter Note* Telephone Encounter [...] her INR after the new year holiday. [id number] Miscellaneous Notes* Telephone Encounter - Jayme Perez [...] in about 2 weeks. documented in [facility] encounterMer[facility] LouisTlwgtiqucc70-86-4528 Telephone encounter Note* Telephone Encounter - Angeles Bonilla - 06/17/2024 9:11 AM EST Left voicemail to continue current dose and recheck in about 2 weeks [facility] [id number] Telephone encounter Note* Telephone Encounter - Jayme Perez MD - 06/17/2024 7:12 AM EST She is right on the border of the elevated. I would just continue the same dose and get rechecked it again in about 2 weeks. [facility] [id number] History of Present illness Narrative* Jayme Perez [...] problem, stable, comanaged with Cardiology. Asymptomatic. 2. [facility] current use of anticoagulant Chronic problem, stable, [...] I discussed with the patient or their passenger representative, their fatigue issues. We discussed how [...] 60 tablet; Refill: 0 documented in this encounterMer[facility] LouisIfizibpojg55-92-6443 Hospital Discharge instructions Patient Education 10/14/2023 09:33:38 [...] include: ?8 oz (237 mL) of milk, xtbhebp-wswypzijlgfk-cowok milk, and calcium- fortifiedfruit juice. Calcium-fortified means [...] ?Spinach (cooked), rhubarb, beets, sweet potatoes, and Malagasy chard. ?Peanuts. ?Potato chips, gabonese fries, and baked potatoes with skin on. ?Nuts and nut products. ?Chocolate. If you regularly take a diuretic medicine, make sure to eat at least 1 or 2 servings of fruits or vegetables that are high in potassium each day. These include: ?Avocado. ?Banana. ?Tucker, prune, carrot, or tomato juice. ?Baked potato. [...] magnesium, fish oil, or vitamin B6. Take igzj-cms-zhsweiq and prescription medicines only as told by [...] Casseroles. Pizza. Lasagna. Frozen meals. Potato chips. Kyrgyz fries. The items listed above may not [...] provider. Document Revised: 10/10/2022 Document Reviewed: 10/10/2022 [employer] Patient Education 2022 [employer]. [facility] 08/13/2023 10:19:44 With:CORA AGUAIR, Eugenia Venegas, URL Address: [address] [place] [address]- When: Unknown [facility] [id number] Hospital Discharge instructions Patient Education 08/13/2023 11:34:50 [...] including vitamins, herbs, eye drops, creams, and jlxg-ork-wrtfypp medicines. Any problems you or family members [...] provider tells you to take them. ?Taking woti-oxm-zacnicz medicines, vitamins, herbs, and supplements. Eating and [...] provider. Document Revised: 11/06/2022 Document Reviewed: 03/04/2022 [employer] Patient Education 2022 [employer]. [facility] 08/12/2023 14:37:00 With:ANGELITO AGUIAR, Renato Arzola, URL Address: [facility] [address], [place] [address]- [phone] When: Unknown Comments:sched ureteroscopyf/u w/ [facility] scheduled 10/14/23 [facility] [place] 01-25-2024 History of Present illness Narrative* Jayme [...] 0.55 - 1.02 mg/dL Final [facility] EGFR-AF [employer] 07/22/2023 >60 >=60 Final [facility] EGFR-NON AF [employer]GER 07/22/2023 55 (L) >=60 Final BUN CREATININE [...] cardiovascular disease. Former smoker 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, adult [facility] current use of anticoagulant Chronic problem, that is monitored monthly, and be seen in the monthly INR results. documented in this encounterMer[facility]. [id number] Evaluation note* Encounter Date Diagnosis Assessment Notes [...] care as directed rx of steroid and Aylett, cool mist humidification. May use Tylenol as directed. Immediate eval for signs of respiratory distress, difficulty breathing poor PO intake, signs of dehydration, fever, or other concerning symptoms. Otherwise, follow up with PCP in 2-3 days. Patient verbalizes understanding and is agreeable to treatment plan. Patient sent home in stable condition. [facility]ila Other 08-11-2022 NotePROCEDURE: XR FOOT LT MIN 3 VIEWS COMPARISON: None. HISTORY: Pain in left foot FINDINGS: BONES:No acute fracture or dislocation. Mild enthesopathic spurring of the calcaneus. SOFT TISSUES:Negative. No visible soft tissue swelling. EFFUSION:None visible. OTHER: Negative. IMPRESSION: Mild enthesopathic spurring of the calcaneus Electronically authenticated by: BLANCA ZAVALA Date: 2022-02-21 07:28[facility] App[facility]ments Appointment Date:07/12/2024 10:45:00 AM Scheduled Provider:Eugenia SHEPHERD MD Location:[facility] Appointment Type:URO Office Visit [facility] Evaluation + Plan note Future Appointments Appointment Date:07/12/2024 10:45:00 AM Scheduled Provider:Eugenia SHEPHERD MD Location:[facility] Appointment Type:URO Office Visit Diagnostic Tests Pending * Calculi [facility]ments Appointment Date:10/14/2023 09:15:00 AM Scheduled Provider:Eugenia SHEPHERD MD Location[facility] Appointment Type:URO Office Visit Appointment Date:07/12/2024 10:45:00 AM Scheduled Provider:Eugenia SHEPHERD MD Location:[facility] Appointment Type:URO Office Visit [facility] Other evaluation noteNo assessment information available [facility] Work Phone: evaluation note* Diagnosis Chronic diastolic heart failure (CMS/HCC)- Primary Chronic diastolic heart failure 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 (CMS/HCC) Atrial fibrillation Type 2 diabetes mellitus with stage 3a chronic kidney disease, without long-term current use of insulin (HCC) ([facility]/HCC) Stage 3a chronic kidney disease (HCC) ([facility]/HCC) Microalbuminuria Proteinuria Former smoker Personal history of tobacco use, presenting hazards to health 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, adult 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 Psoriatic arthropathy (CMS/HCC) Psoriatic arthropathy Gastroesophageal reflux disease without esophagitis Esophageal reflux [facility]* Diagnosis 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 (CMS/HCC)- Primary Atrial fibrillation [facility] current use of anticoagulant Type 2 diabetes mellitus with stage 3a chronic kidney disease, without long-term current use of insulin (HCC) (CMS/HCC) Stage 3a chronic kidney disease (HCC) ([facility]/HCC) Microalbuminuria Proteinuria Unexplained weight loss Loss of weight Chronic fatigue Other malaise and fatigue Sleep arousal disorder [facility]* Diagnosis Type 2 diabetes mellitus with stage 3a chronic kidney disease, without long-term current use of insulin (HCC) (CMS/HCC) [facility]* Diagnosis 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 ([facility]/HCC) Atrial fibrillation documented [facility]* Diagnosis Type 2 diabetes mellitus with diabetic microalbuminuria, without long-term current use of insulin ([facility]/HCC)- Primary Encounter for Medicare annual wellness exam [...] of iron metabolism Chronic diastolic heart failure ([facility]/HCC) Chronic diastolic heart failure 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 ([facility]/HCC) Atrial fibrillation Stage 3a chronic kidney disease (HCC) ([facility]/HCC) Age-related osteoporosis without current pathological fracture ([facility]/HCC) Psoriatic arthropathy ([facility]/HCC) Psoriatic arthropathy Type 2 diabetes mellitus with stage 3a chronic kidney disease, without long-term current use of insulin (HCC) ([facility]/HCC) Type 2 diabetes mellitus with diabetic microalbuminuria, without long-term current use of insulin ([facility]) Immunosuppressed status ([facility]) documented [facility]* Diagnosis Vertigo- Primary Dizziness and giddiness documented [facility]* Diagnosis Vertigo- Primary Dizziness and giddiness documented [facility]* Diagnosis Vertigo- Primary Dizziness and giddiness documented [facility]* Diagnosis Vertigo- Primary Dizziness and giddiness 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 (HCC) Atrial fibrillation [facility] current use of anticoagulant Medication monitoring encounter Encounter for therapeutic drug monitoring documented [facility]* Diagnosis Vertigo- Primary Dizziness and giddiness documented [facility]* Diagnosis Vertigo- Primary Dizziness and giddiness documented [facility]* Diagnosis Kidney stone on left side documented in this encounter [facility]* Diagnosis Kidney stone on left side- Primary Hospital discharge follow-up Other follow-up examination documented [facility] Narrative - [facility]ortedNortLE[facility] [employer] Other History general Narrative - Reported* Type Description Date Medical History Arthritis Medical History diabetes mallitus Surgical History cataract surgery [facility] [facility] Other Hospital course Narrative No data available for this section [facility] Discharge instructions No data available for this section [facility] Discharge instructions Additional Instructions DISCHARGE INSTRUCTIONS [...] X- Ray) in about six months. [ ][facility] Work Phone: Progress note No data available for this section [facility] Reason for referral (narrative)No reason for referral information availableFayette County Memorial [facility] Work Phone: Reason for visit Narrative* Rehabilitation - Outpatient (Routine) - Authorized Specialty Diagnoses / Procedures Referred By Contac t Referred To Contact Physical Therapy Diagnoses Vertigo Procedures MD OFFICE/OUTPATIENT NEW HIGH MDM 60 MINUTES Jayme Perez MD [address] [address] Phone: tel: fax: Joselyn Narvaez, PT Referral ID Status Reason Start Date Expiration Date Visits Requested Visits Authorized [id number] Authorized Specialty Services Required 12/22/2024 06/20/2025 10 10 [facility] Narrative* Rehabilitation - Outpatient (Routine) - Authorized Specialty Diagnoses / Procedures Referred By Contac t Referred To Contact Physical Therapy Diagnoses Vertigo Procedures MD OFFICE/OUTPATIENT NEW HIGH MDM 60 MINUTES Jayme Perez MD [address] [address] Phone: tel: fax: Joselyn Narvaez, PT Referral ID Status Reason Start Date Expiration Date Visits Requested Visits Authorized [id number] Authorized Specialty Services Required 12/22/2024 07/13/2025 10 [...] DATE CREATED AUTHOR AUTHOR'S ORGANIZ ATION 02/09/2025 [facility] EPIC DATE CREATED AUTHOR AUTHOR'S ORGANIZ ATION 02/24/2025 Corunna Mathews [facility] DATE CREATED AUTHOR AUTHOR'S ORGANIZ ATION 02/26/2025 [facility] Patient Care team informatio n (unrecognized section and content) Team Status: Active Member Role Status Dates Jayme Perez MD Primary Care Provider Active Team Status: Inactive Member Role Status Dates Jayme Perez MD Primary Care Provider Active Eugenia Shepherd MD Attending Provider Active Automatic Spinning Lathe Setter Relationship Specialty Start Date End Date Jayme Perez MD [address] [place] [address] PCP - General Family Medicine 11/25/22 Jayme Perez MD [address] [place] [address] PCP - ACO Reach 12/05/22 Automatic Spinning Lathe Setter Relationship Specialty Start Date End Date Jayme Perez MD [address] [place] [address] PCP - General Family Medicine 11/25/22 Jayme Perez MD [address] [place] [address] (Fax) PCP - ACO Reach 12/05/22 Team Status: Inactive Member Role Status Dates Jayme Perez MD Primary Care Provider Active Start: March 31, 2024 End: March 31, 2024 Radames Monteiro MD Attending Provider Active St art: March 31, 2024 End: March 31, 2024 Automatic Spinning Lathe Setter Relationship Specialty Start Date End Date Jayme Perez MD [address] [phone] (Fax) PCP - General Family Medicine 11/25/22 Jayme Perez MD [address] [phone] (Fax) PCP - ACO Reach 12/05/22 Felicia Farmer DO [address] [place] [address] [address] [place] [address] Referring Physician Ophthalmology 08/21/23 Renato Santacruz MD [address] [place], [place] [phone] Referring Physician Urology 08/21/23 Radames Monteiro MD [address] [facility] Professional building 1 [place] [address] Referring Physician Rheumatology 08/21/23 Automatic Spinning Lathe Setter Relationship Specialty Start Date End Date Jayme Perez MD [address] [place] [address] (Fax) PCP - General Family Medicine 11/25/22 Jayme Perez MD [address] [place] [address] (Fax) PCP - ACO Reach 12/05/22 Felicia Farmer DO [address] [place] [address] Referring Physician Ophthalmology 08/21/23 Renato Santacruz MD [address] [place] [address] Referring Physician Urology 08/21/23 Radames Monteiro MD [address] Professional building 1 [place] [phone] Referring Physician Rheumatology 08/21/23 Automatic Spinning Lathe Setter Relationship Specialty Start Date End Date Jayme Perez MD [address] [phone] (Fax) PCP - General Family Medicine 11/25/22 Jayme Perez MD [address] [place] [address] (Fax) PCP - ACO Reach 12/05/22 Felicia Farmer DO [address] [place] [phone] Referring Physician Ophthalmology 08/21/23 Renato Santacruz MD [address] [place] [address] Referring Physician Urology 08/21/23 Radames Monteiro MD [address] Professional building 1 [place] [phone] Referring Physician Rheumatology 08/21/23 Automatic Spinning Lathe Setter Relationship Specialty Start Date End Date Jayme Perez MD [address] [phone] (Fax) PCP - General Family Medicine 11/25/22 Jayme Perez MD [address] [place] [phone] (Fax) PCP - ACO Reach 12/05/22 Felicia Farmer, [address] [place], [place] [phone] Referring Physician Ophthalmology 08/21/23 Renato Santacruz MD [address] [place] [address] Referring Physician Urology 08/21/23 Radames Monteiro MD [address] [facility] Professional building [address] [place] [phone] Referring Physician Rheumatology 08/21/23 Automatic Spinning Lathe Setter Relationship Specialty Start Date End Date Jayme Perez MD [address] [place] [address] (Fax) PCP - General Family Medicine 11/25/22 Jayme Perez MD [address] [place] [address] (Fax) PCP - ACO Reach 12/05/22 Felicia Farmer DO [address] [place] [address] Referring Physician Ophthalmology 08/21/23 Renato Santacruz MD [address] [place] [phone] Referring Physician Urology 08/21/23 Radames Monteiro MD [address] [place] [address] Referring Physician Rheumatology 08/21/23 Automatic Spinning Lathe Setter Relationship Specialty Start Date End Date Jayme Perez MD [address] [place], [place] [phone] (Fax) PCP - General Family Medicine 11/25/22 Jayme Perez MD [address] [phone] (Fax) PCP - ACO Reach 12/05/22 Felicia Farmer DO [address] [facility] [address] [place] [address] Referring Physician Ophthalmology 08/21/23 Renato Santacruz MD [address] [phone] Referring Physician Urology 08/21/23 Radames Monteiro MD [address] [place] [phone] Referring Physician Rheumatology 08/21/23 Automatic Spinning Lathe Setter Relationship Specialty Start Date End Date Jayme Perez MD [address] [facility] [address] [place] [address] (Fax) PCP - General Family Medicine 11/25/22 Jayme Perez MD [address] [place] [address] PCP - ACO Reach 12/05/22 Felicia Farmer DO [address] [place] [address] Referring Physician Ophthalmology 08/21/23 Renato Santacruz MD [address] [place] [address] Referring Physician Urology 08/21/23 Radames Monteiro MD [address] Professional building 1 [place] [address] Referring Physician Rheumatology 08/21/23 Automatic Spinning Lathe Setter Relationship Specialty Start Date End Date Jayme Perez MD [address] [place] [address] (Fax) PCP - General Family Medicine 11/25/22 Jayme Perez MD [address] [place] [address] PCP - ACO Reach 12/05/22 Felicia Farmer DO [address] [place] [address] Referring Physician Ophthalmology 08/21/23 Renato Santacruz MD [address] [place] [address] Referring Physician Urology 08/21/23 Radames Monteiro MD [address] Professional [address] 1 [place] [address] Referring Physician Rheumatology 08/21/23 Automatic Spinning Lathe Setter Relationship Specialty Start Date End Date Jayme Perez MD [address] [place] [address] (Fax) PCP - General Family Medicine 11/25/22 Jayme Perez MD [address] [place] [address] (Fax) PCP - ACO Reach 12/05/22 Felicia Farmer DO [address] [place] [address] Referring Physician Ophthalmology 08/21/23 Renato Santacruz MD [address] [place], [place] [phone] Referring Physician Urology 08/21/23 Radames Monteiro MD [address] [facility] Professional building 1 [place] [phone] Referring Physician Rheumatology 08/21/23 Automatic Spinning Lathe Setter Relationship Specialty Start Date End Date Jayme Perez MD [address] [place] [address] (Fax) PCP - General Family Medicine 11/25/22 Jayme Perez MD [address] [place] [phone] (Fax) PCP - ACO Reach 12/05/22 Felicia Farmer DO [address] [place] [address] Referring Physician Ophthalmology 08/21/23 Renato Santacruz MD [address] [place] [address] [address] Referring Physician Urology 08/21/23 Radames Monteiro MD [address] Professional building 1 [place] [address] Referring Physician Rheumatology 08/21/23 Automatic Spinning Lathe Setter Relationship Specialty Start Date End Date Jayme Perez MD [address] [place] [address] (Fax) PCP - General Family Medicine 11/25/22 Jayme Perez MD [address] [place] [address] (Fax) PCP - ACO Reach 12/05/22 Felicia Farmer DO [facility] [address] [place] [address] Referring Physician Ophthalmology 08/21/23 Renato Santacruz MD [address] [address] Referring Physician Urology 08/21/23 Radames Monteiro MD [address] Professional building 1 [place] [phone] Referring Physician Rheumatology 08/21/23 Automatic Spinning Lathe Setter Relationship Specialty Start Date End Date Jayme Perez MD [address] [place] [address] (Fax) PCP - General Family Medicine 11/25/22 Jayme Perez MD [address] [place] [address] (Fax) PCP - ACO Reach 12/05/22 Felicia Farmer DO [address] [place] [address] Referring Physician Ophthalmology 08/21/23 Renato Santacruz MD [address] [place] [address] Referring Physician Urology 08/21/23 Radames Monteiro MD [address] [facility] Professional building [address] [place] [phone] Referring Physician Rheumatology 08/21/23 Automatic Spinning Lathe Setter Relationship Specialty Start Date End Date Jayme Perez MD [address] [place] [address] (Fax) PCP - General Family Medicine 11/25/22 Jayme Perez MD [address] [place] [address] (Fax) PCP - ACO Reach 12/05/22 Felicia Farmer DO [address] [place] [address] Referring Physician Ophthalmology 08/21/23 Renato Santacruz MD [address] [place] [address] Referring Physician Urology 08/21/23 Radames Monteiro MD [address] Professional building 1 [place] [address] Referring Physician Rheumatology 08/21/23 Automatic Spinning Lathe Setter Relationship Specialty Start Date End Date Jayme Perez MD [address] [place] [address] (Fax) PCP - General Family Medicine 11/25/22 Jayme Perez MD [address] [place] [address] (Fax) PCP - ACO Reach 12/05/22 Felicia Farmer DO [address] [place] [address] Referring Physician Ophthalmology 08/21/23 Renato Santacruz MD [address] [place] [address] Referring Physician Urology 08/21/23 Radames Monteiro MD [address] Professional building 1 [place] [address] Referring Physician Rheumatology 08/21/23 Automatic Spinning Lathe Setter Relationship Specialty Start Date End Date Jayme Perez MD [address] [place] [address] (Fax) PCP - General Family Medicine 11/25/22 Jayme Perez MD [address] [place] [address] (Fax) PCP - ACO Reach 12/05/22 Felicia Farmer DO [address] [place] [address] Referring Physician Ophthalmology 08/21/23 Renato Santacruz MD [address] [address] Referring Physician Urology 08/21/23 Radames Monteiro MD [address] Professional building [address] [place] [address] Referring Physician Rheumatology 08/21/23 Automatic Spinning Lathe Setter Relationship Specialty Start Date End Date Jayme Perez MD [address] [place] [address] (Fax) PCP - General Family Medicine 11/25/22 Jayme Perez MD [address] [facility] [address] [place] [address] (Fax) PCP - ACO Reach 12/05/22 Felicia Farmer DO [facility] [address] [place] [address] Referring Physician Ophthalmology 08/21/23 Renato Santacruz MD [address] [address] Referring Physician Urology 08/21/23 Radames Monteiro MD [address] [place] [phone] Referring Physician Rheumatology 08/21/23 Automatic Spinning Lathe Setter Relationship Specialty Start Date End Date Jayme Perez MD [address] [place] [address] (Fax) PCP - General Family Medicine 11/25/22 Jayme Perez MD [address] [place] [address] (Fax) PCP - ACO Reach 12/05/22 Felicia Farmer DO [address] [place] [address] Referring Physician Ophthalmology 08/21/23 Renato Santacruz MD [address] [place] [address] Referring Physician Urology 08/21/23 Radames Monteiro MD [address] [facility] Professional building [address] [place] [phone] Referring Physician Rheumatology 08/21/23 Automatic Spinning Lathe Setter Relationship Specialty Start Date End Date Jayme Perez MD [address] [place] [address] (Fax) PCP - General Family Medicine 11/25/22 Jayme Perez MD [address] [place] [address] (Fax) PCP - ACO Reach 12/05/22 Felicia Farmer DO [address] [place] [address] Referring Physician Ophthalmology 08/21/23 Renato Santacruz MD [address] [place] [address] Referring Physician Urology 08/21/23 Radames Monteiro MD [address] Professional building 1 [place] [phone] Referring Physician Rheumatology 08/21/23 Automatic Spinning Lathe Setter Relationship Specialty Start Date End Date Jayme Perez MD [address] [place] [address] (Fax) PCP - General Family Medicine 11/25/22 Jayme Perez MD [address] [place] [address] (Fax) PCP - ACO Reach 12/05/22 Feilcia Farmer DO [address] [place] [address] Referring Physician Ophthalmology 08/21/23 Renato Santacruz MD [address] [place] [address] Referring Physician Urology 08/21/23 Radames Monteiro MD [address] Professional [address] 1 [place] [address] Referring Physician Rheumatology 08/21/23 Automatic Spinning Lathe Setter Relationship Specialty Start Date End Date Jayme Perez MD [address] [place] [address] (Fax) PCP - General Family Medicine 11/25/22 Jayme Perez MD [address] [place] [address] (Fax) PCP - ACO Reach 12/05/22 Felicia Farmer DO [address] [place] [address] Referring Physician Ophthalmology 08/21/23 Renato Santacruz MD 290 [place] [address] Referring Physician Urology 08/21/23 Radames Monteiro MD [address] Professional [address] [place] [address] Referring Physician Rheumatology 08/21/23 Automatic Spinning Lathe Setter Relationship Specialty Start Date End Date Jayme Perez MD [address] [place] [address] PCP - General Family Medicine 11/25/22 Jayme Perez MD [address] [place] [address] (Fax) PCP - ACO Reach 12/05/22 Felicia Farmer DO [address] [place] [address] Referring Physician Ophthalmology 08/21/23 Renato Santacruz MD 290 [place] [address] Referring Physician Urology 08/21/23 Radames Monteiro MD [address] [place] [address] Referring Physician Rheumatology 08/21/23 Automatic Spinning Lathe Setter Relationship Specialty Start Date End Date Jayme Perez MD [address] [place] [address] (Fax) PCP - General Family Medicine 11/25/22 Jayme Perez MD [address] [facility] [address] [place] [address] (Fax) PCP - ACO Reach 12/05/22 Felicia Farmer DO [address] [place] [address] Referring Physician Ophthalmology 08/21/23 Renato Santacruz MD [address] [place] [address] Referring Physician Urology 08/21/23 Radames Monteiro MD [address] [facility] Professional building [address] [place] [phone] Referring Physician Rheumatology 08/21/23 Automatic Spinning Lathe Setter Relationship Specialty Start Date End Date Jayme Perez MD 112 [facility] 100 [place] [address] (Fax) PCP - General Family Medicine 11/25/22 Jayme Perez MD [address] [address] (Fax) PCP - ACO Reach 12/05/22 Felicia Farmer DO [address] [place] [address] Referring Physician Ophthalmology 08/21/23 Renato Santacruz MD [address] [place] [address] Referring Physician Urology 08/21/23 Radames Monteiro MD [address] Professional [address] 1 [place] [address] Referring Physician Rheumatology 08/21/23 Automatic Spinning Lathe Setter Relationship Specialty Start Date End Date Jayme Perez MD [address] [place] [address] (Fax) PCP - General Family Medicine 11/25/22 Jayme Perez MD [address] [place], [place] [phone] (Fax) PCP - ACO Reach 12/05/22 Felicia Farmer DO [address] [place] [address] Referring Physician Ophthalmology 08/21/23 Renato Santacruz MD [address] [place] [address] Referring Physician Urology 08/21/23 Radames Monteiro MD [address] [facility] Professional [facility] 1 [place] [address] Referring Physician Rheumatology 08/21/23 Team Status: Inactive Member Role Status Dates Lobito Tapia DO Attending Provider Active S tart: February 04, 2025 End: February 04, 2025 Automatic Spinning Lathe Setter Relationship Specialty Start Date End Date Jayme Perez MD [address] [place] [address] (Fax) PCP - General Family Medicine 11/25/22 Jayme Perez MD [address] [place] [address] (Fax) PCP - ACO Reach 12/05/22 Felicia Farmer DO [address] [place] [address] Referring Physician Ophthalmology 08/21/23 Renato Santacruz MD [address] [place] [address] Referring Physician Urology 08/21/23 Radames Monteiro MD [address] [facility] Professional building [address] [place] [phone] Referring Physician Rheumatology 08/21/23 Team Status: Inactive Member Role Status Dates Jayme Perez MD Primary Care Provider Active Start: February 11, 2025 End: February 11, 2025 Kristie Hermosillo [facility] Attending Provider Active Start: February 11, 2025 End: February 11, 2025 Team Status: Inactive Member Role Status Dates Jayme Perez MD Primary Care Provider Active Start: February 14, 2025 End: February 14, 2025 Eugenia Shepherd MD Attending Provider Active St art: February 14, 2025 End: February 14, 2025 Automatic Spinning Lathe Setter Relationship Specialty Start Date End Date Jayme Perez MD [address] [place] [address] (Fax) PCP - General Family Medicine 11/25/22 Jayme Perez MD [address] [place] [address] (Fax) PCP - ACO Reach 12/05/22 Felicia Farmer DO [address] [place] [address] Referring Physician Ophthalmology 08/21/23 Renato Santacruz MD [address] [place] [phone] Referring Physician Urology 08/21/23 Radames Monteiro MD [address] [facility] Professional [address] [place] [address] Referring Physician Rheumatology 08/21/23 Automatic Spinning Lathe Setter Relationship Specialty Start Date End Date Jayme Perez MD [address] [place] [address] PCP - General Family Medicine 11/25/22 Jayme Perez MD [address] [place] [address] (Fax) PCP - ACO Reach 12/05/22 Felicia Farmer DO [address] [place] [address] Referring Physician Ophthalmology 08/21/23 Renato Santacruz MD [address] [place] [address] Referring Physician Urology 08/21/23 Radames Monteiro MD [address] [place] [address] Referring Physician Rheumatology 08/21/23 Rebeca Emerson, WIRE WRAPPER MACHINE OPERATOR [address] [place] [address] Fashion Photographer Family Medicine 03/04/25 Goals (unrecognized section and [...] BE BASED ON THE PRIMARY CLINICAL RECORDS. [facility] [employer] provides no warranty or guarantee of the accuracy or completeness of information in this document.
[2025-04-19 13:42] LABS: INR 1.99; Prothrombin Time 19.7 sec (9.0-11.6)
== END 2025-04-19 10:03 | disposition home or self-care (01) ==
LOC: LAB 10:03
PROVIDERS: PCP Family Medicine; Visit Provider Family Medicine
DX: E11.22 Type 2 diabetes mellitus with diabetic chronic kidney disease (principal); N18.31 Chronic kidney disease, stage 3a; I48.0 Paroxysmal atrial fibrillation; Z79.01 Long term (current) use of anticoagulants; Z51.81 Encounter for therapeutic drug level monitoring
CPT/HCPCS: 36415; 83036; 85610

== ENCOUNTER 2025-05-20 16:06 | Outpatient (OUT) | payer MEDICARE, SELFPAY ==
--- OUTSIDE RECORDS SUMMARY | 2025-05-20 16:10 | XMS_ITS | Clinical Summary ---
Author Organization [facility] Healthcare Address [address] [place] [address] Care Team Providers Care Retreader Name Role Phone Jayme Parham MD Primary Care Provider [phone] Jayme Parham MD Unavailable [phone] Mick Farmer DO Unavailable [phone] Renato Santacruz MD Unavailable [phone] Chuy Wood MD Unavailable [phone] Allergies Active AllergyReactionsCriticalityNoted ChyxKjyakionLdtkjsyqcdvxfOfq26/08/2022 Other Reaction(s): bennett, Hydrocodone Bit-Homatrop RgdPfgflffek80/25/2024KetorolacNausea Only01/06/2023 Other Reaction(s): Unknown Severe Latex01/06/2023 Other Reaction(s): Blister Medical Adhesive Orcgshi4502/18/2022 Other Reaction(s): facial edema, redness/metrogel Wnsfeahxfphrk21/08/2022 Other Reaction(s): facial edema, redness/metrogel XftprmTiw83/08/2022 Other Reaction(s): Abdominal Pain, Unknown Cnprxcouqwse23/26/2023 Other Reaction(s): Unknown, Vomiting Sulfa Xwmptujyoip73/08/2022 Other Reaction(s): rash swelling Medications MedicationSigDispense QuantityRefillsLast FilledStart DateEnd DateStatus acetaminophen (Tylenol) 325 MG tablet Take 325 mg by mouth every 6 (six) hours if needed. 2 tables as needed orally every 6 hoursActive calcium citrate 1040 MG tablet Take 250 mg by mouth in the morning and 250 mg in the evening and 250 mg before bedtime. 1 tablet orally three times a day.Active cinnamon 500 MG capsule Take 500 mg by mouth in the morning and 500 mg before bedtime. 1 capsule orally twice a day.Active Cyanocobalamin (Vitamin B12) [address] 3,000 mcg under the tongue 1 (one) time each day.Active esomeprazole (NexIUM) [address] capsule Take 20 mg by mouth 1 (one) time each day. 1 capsule orally once a dayActive Spacer/Aero-Holding Chambers (BreatheRite Leonor Spacer Adult) [facility] Indications:Chronic obstructive pulmonary disease with acute exacerbation (HCC)2 puffs 4 (four) times a day as needed (sob and cough) 1 each 07/16/2023ctive albuterol HFA 90 mcg/act inhaler Indications:Chronic obstructive pulmonary disease with acute exacerbation (HCC) Inhale 2 puffs in the morning and 2 puffs at noon and 2 puffs in the evening and 2 puffs before bedtime. 18 g 07/16/2023ctive traZODone (Desyrel) 50 MG tablet Indications:InsomniaTitrate nightly from 1/2 tablet up to 2 tablets by 1/2 tablet increments as tolerated 60 tablet 04/15/2024ctive predniSONE (Deltasone) 5 MG tablet Take 2.5 mg by mouth DailyActive Methotrexate 12.5 MG/0.5ML solution prefilled syringe Inject 0.5 mL under the skin 1 (one) time per weekActive golimumab (Simponi) 100 MG/ML solution auto-injector Inject 100 mg under the skin every 8 (eight) weeksActive docusate sodium (Colace) 100 MG capsule Take 100 mg by mouth in the morning and 100 mg before bedtime.Active oxybutynin (Ditropan) 5 MG tablet Take 5 mg by mouth as needed in the morning and 5 mg as needed at noon and 5 mg as needed in the evening (bladder spasms).Active ondansetron ODT (Zofran-ODT) 4 MG disintegrating tablet Indications:Kidney stone on left sideTake 1 tablet (4 mg) by mouth every 8 (eight) hours if needed for nausea or vomiting for up to 10 days 30 tablet 02/08/2025tive levoFLOXacin (Levaquin) 250 MG tablet Indications:Kidney stone on left sideTAKE 1 TABLET BY MOUTH DAILY FOR 10 DAYS 10 tablet 5Active acarbose (Precose) 100 MG tablet Indications:Type 2 diabetes mellitus with stage 3a chronic kidney disease, without long-term current use of insulin (HCC)Take 1 tablet (100 mg) by mouth in the morning and 1 tablet (100 mg) at noon and 1 tablet (100 mg) in the evening. Take with meals. 90 tablet 5Active metFORMIN (Glucophage) 1000 MG tablet Indications:Type 2 diabetes mellitus with stage 3a chronic kidney disease, without long-term current use of insulin (HCC)Take 1 tablet (1,000 mg) by mouth in the morning and 1 tablet (1,000 mg) in the evening. Take with meals. 60 tablet 5Active warfarin (Coumadin) 4 MG tablet Indications: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 (HCC)Take 1 tablet (4 mg) by mouth at bedtime 90 tablet 501/6Active warfarin (Coumadin) 4 MG tablet Indications: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 (HCC)Take 1 tablet (4 mg) by mouth at mjzmbuw81Discontinued(Reorder) Active Problems ProblemNoted DateDiagnosed DateType 2 diabetes mellitus with diabetic microalbuminuria, without long-term current use of bnuhfas9411/02/2024MI 22.0- 22.9, adult07/30/2023Long term current use of nsnizcaelwusp14/08/2024 Pisfowdghvvb95/06/2023laucoma suspect of both eyes05/19/2023ry eyes05/19/2023 Chronic diastolic heart gaijylt5012/12/2022DD (degenerative disc disease), lumbar 12/12/2022iverticulosis of large intestine without vmmkmbgqyp48/01/2023 Gastroesophageal reflux disease without mghpnubkaoh45/01/2023Heart murmur 12/12/2022Immunosuppressed llhrsb7112/12/2022Iron iangmkzpmh75/01/2023 Dijmowydwvenijwb45/01/2023Moderate aortic tfzuqxdl24/01/2023Osteoarthritis of lumbar spine12/12/20222363Uoigrfpzgd39/01/6688Pkohmkdwslyk95/01/2023aroxysmal atrial mpjpbgljcecg70/01/2023ost menopausal /01/2023soriatic endbgtgexdx89/01/2023Sleep ckvxazok14/01/2023Stage 3a chronic kidney disease 12/12/2022Type 2 diabetes mellitus with diabetic chronic kidney disease 12/12/2022Ventricular eklfvmpdjat24/01/2023Vitamin D nuhtxjgyvc07/01/2023 Resolved Problems ProblemNoted DateDiagnosed DateResolved DateType 2 diabetes mellitus without complication, without long-term current use of fwbyrhg78/ge- related nuclear cataract of right eye/Type 1 diabetes mellitus without uhmeoxdwhwstd42/06/202311/ge-related nuclear cataract of both eyes/lepharitis of upper and lower eyelids of both eyes/7970Pikllvvoxh78/01/202301/Former gkoiqu1303/27/2017 08/07/2023 Encounters DateTypeDepartmentCare UcmhRbetbuijyje87/02/2025Refill [facility] [address] [place] [address] Jayme Parham MD Type 2 diabetes mellitus with stage 3a chronic kidney disease, without long-term current use of insulin (HCC)05/09/2025Orders Only [facility] [address] [place] [address] Kimberly Magalis, [place] 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 (HCC)04/20/2025Results Follow-Up [facility] [address] [place] [address] Magalis Harris, [place] MLR HEMOGLOBIN A1C, SRMCOH PROTHROMBIN TIME INR W/O COUM04/19/2025linisync Result Encounter [facility] External Department Unsolicited Jayme Parham MD 04/17/2025Refill [facility] [address] [place] [address] Jayme Parham MD 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 (HCC); Type 2 diabetes mellitus with stage 3a chronic kidney disease, without long-term current use of insulin (HCC)04/14/2025Refill [facility] [address] [address] Jayme Parham MD 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 (HCC); Type 2 diabetes mellitus with stage 3a chronic kidney disease, without long-term current use of insulin ([facility])04/05/2025Results Follow-Up [facility] [address] [address] Jayme Parham MD [facility] PROTHROMBIN TIME INR W/O COUM5Clinisync Result Encounter [facility] External Department Unsolicited Jayme Parham MD 03/09/2025Results Follow-Up [facility] [address] [address] Kimberly October, [place] [facility] PROTHROMBIN TIME INR W/O COUM03/08/2025Patient Outreach [facility] [place] [address] [place] [address] Rebeca Emerson, WEL[employer]UTTER 5Clinisync Result Encounter [facility] External Department Unsolicited Jayme Parham MD from Last 3 Months Family History Medical HistoryRelationNameCommentsNo Known ProblemsMaternal GrandfatherNo Known ProblemsMaternal GrandmotherHeart diseaseMotherNo Known ProblemsPaternal GrandfatherNo Known ProblemsPaternal GrandmotherRelationNameStatusComments Brother3 brothersDaughter1 daughterFatherDeceasedMaternal GrandfatherDeceased Maternal GrandmotherDeceasedMotherDeceasedPaternal GrandfatherDeceasedPaternal GrandmotherDeceasedSon2 sons Social History Tobacco UseTypesPacks/DayYears UsedDateSmoking Tobacco: FormerCigarettesQuit: 1987Smokeless Tobacco: Never Tobacco Cessation:Counseling Given: Yes Alcohol UseStandard Drinks/WeekCommentsNot Currently0 (1 standard drink = 0.6 oz pure alcohol)B1300 Health LiteracyAnswerDate RecordedHow often do you need to have someone help you when you read instructions, pamphlets, or other written material from your doctor or pharmacy?Never04/08/2024Humiliation, Afraid, Rape, and Kick questionnaireAnswerDate RecordedWithin the last year, have you been afraid of your partner or ex-partner?No12/11/2022Within the last year, have you been humiliated or emotionally abused in other ways by your partner or ex-partner?No12/11/2022Within the last year, have you been kicked, hit, slapped, or otherwise physically hurt by your partner or ex-partner?No12/11/2022Within the last year, have you been raped or forced to have any kind of sexual activity by your partner or ex-partner?No12/11/2022Social Connection and Isolation Panel AnswerDate RecordedIn a typical week, how many times do you talk on the phone with family, friends, or neighbors?More than three times a week04/08/2024How often do you get together with friends or relatives?More than three times a week 04/08/2024How often do you attend druze or hindu services?Never04/08/2024o you belong to any clubs or organizations such as druze groups, unions, fraternal or athletic groups, or school groups?No04/08/2024How often do you attend meetings of the clubs or organizations you belong to?Never04/08/2024re you , , , , never , or living with a partner?Tqftlyq5504/08/2024UDIT-CAnswerDate RecordedQ1: How often do you have a drink containing alcohol?Never04/08/2024Q2: How many drinks containing alcohol do you have on a typical day when you are drinking?Patient does not drink 04/08/2024Q3: How often do you have six or more drinks on one occasion?Never 04/08/2024Overall Financial Resource Strain (CARDIA)AnswerDate RecordedHow hard is it for you to pay for the very basics like food, housing, medical care, and heating?Not hard at all04/08/2024HQ-2AnswerDate RecordedPatient Health Questionnaire-2 Knisi811[facility] [place] [facility] - Occupational Stress QuestionnaireAnswerDate RecordedDo you feel stress - tense, restless, nervous, or anxious, or unable to sleep at night because yourmind is troubled all the time - these days?Not at all04/08/2024Exercise Vital SignAnswer Date RecordedOn average, how many days per week do you engage in moderate to strenuous exercise (like a brisk walk)?4 days04/08/2024On average, how many minutes do you engage in exercise at this level?60 min04/08/2024Hunger Vital SignAnswerDate RecordedWithin the past 12 months, you worried that your food would run out before you got the money to buymore.Never true04/08/2024Within the past 12 months, the food you bought just didn't last and you didn't have money to get more.Never true04/08/2024RAPARE - TransportationAnswerDate RecordedIn the past 12 months, has lack of transportation kept you from medical appointments or from getting medications?No04/08/2024In the past 12 months, has lack of transportation kept you from meetings, work, or from getting things needed for daily living?No04/08/2024Housing Stability Vital SignAnswerDate RecordedIn the last 12 months, was there a time when you were not able to pay the mortgage or rent on time?No12/11/2022In the last 12 months, how many places have you lived?In the last 12 months, was there a time when you did not have a steady place to sleep or slept in [place] (including now)?No 12/11/2022Housing Stability Vital SignAnswerDate RecordedIn the last 12 months, was there a time when you were not able to pay the mortgage or rent on time?No 04/08/2024In the past 12 months, how many times have you moved where you were living?t any time in the past 12 months, were you homeless or living in a group home (including now)?No04/08/2024EducationAnswerDate RecordedWhat is the highest level of school you have completed or the highest degree you have received?Some college, no gqdfdg293CommentsNoSex and Gender InformationValueDate RecordedSex Assigned at NprgzFrubtw47/26/2023 1:32 PM EDT Legal VomUdbvwa11/15/2023 6:45 PM EDTGender XtjyvxtsYvqsye40/26/2023 1:32 PM EDT Sexual OrientationNot on file Last Filed Vital Signs Vital SignReadingTime TakenCommentsBlood Ableksrt708/7604 1:54 PM EDT Bcwth57425/24/2025 1:54 PM EDTTemperature--Respiratory Rate--Oxygen Saturation 99%11/04/2024 1:54 PM EDTInhaled Oxygen Concentration--Expfiu26.6 kg (127 lb) 01/06/2025 11:39 AM DECBgqgwv037 cm (5' 3 )01/06/2025 11:39 AM EDTBody Mass Index22. 11:39 AM EDT Plan of Treatment DateTypeDepartmentCare Team (Latest Contact Info)Onhdvddawgk94/10/2025 2:30 PM ESTOffice Visit [facility] Medicine [address] [facility] [address] [place] [address] Jayme Parham MD [address] [facility] [address] [place] [address] Health MaintenanceDue DateLast DoneCommentsSkin Cancer Pltlibbyi99/24/1947COVID- 19 Vaccine (#1)1951Influenza Vaccine (#1)2025Pneumococcal Vaccine: 65+ Years (1 of 2 - PCV)09/13/2025Postponed from 1965 (Patient Refused) Diabetes: Hemoglobin A1C, 10/18/2024, 02/03/2023, Additional history existsDiabetes: Urine Protein Iurwukjiy50/22/11785111/02/2024, 09/13/2019, 09/25/2017Diabetes: Retinopathy Nidsmcbmg43, 08/04/2024, 08/04/2024, Additional history exists Procedures Procedure NamePriorityDate/TimeAssociated DiagnosisCommentsSRMCOH PROTHROMBIN TIME INR W/O QZHXYigvley04/07/2025 10:50 AM EDT MLR HEMOGLOBIN A5ASbvwccm01/07/2025 10:50 AM EDT SRMCOH PROTHROMBIN TIME INR W/O VOIMPduegqd05/23/2025 11:20 AM EDT [facility] PROTHROMBIN TIME INR W/O ZNIGVtmxmch00/26/2025 12:01 PM EDT HEMOGLOBIN Q7OPeyqzhn62/24/2023 12:42 PM EDT Type 2 diabetes mellitus with stage 3a chronic kidney disease, without long-term current use of insulin (HCC) COLOR FUNDUS PHOTOGRAPHY - OU - BOTH VAZGNvxiivg02/01/2021 12:00 PM EDT MICROALBUMIN, URINE CEJSHQmvrxwj61/02/2020 12:00 PM EST from Last 3 Months or Most Recently Relevant to Health Maintenance Results * (ABNORMAL) SRMCOH PROTHROMBIN TIME INR W/O COUM (04/19/2025 10:50 AM EDT) Only the most recent of3 resultswithin the time period is included. ComponentValueRef RangeTest MethodAnalysis TimePerformed AtPathologist Signature PROTHROMBIN TIME19.7(H)9.0 - 11.6 secTBHTBH INR1.99TBHComment: DESIRED INR: 2.0-3.0 CONDITIONS NOT LISTED BELOW 2.5-3.5 FOR PROSTHETIC HEART VALVE REPLACEMENT 2.5-3.5 RECURRENT THROMBOSIS Specimen (Source)Anatomical Location / LateralityCollection Method / Volume Collection TimeReceived Time04/19/2025 10:50 AM EDT1 11:07 AM EDT Narrative CLINISYNC - 04/19/2025 1:45 PM EDT Authorizing ProviderResult TypeResult StatusEdganesh Parham MDCLINISYNCFinal ResultPerforming OrganizationAddressCity/State/ZIP CodePhone Number CLINISYNC [facility] * (ABNORMAL) MLR HEMOGLOBIN A1C (04/19/2025 10:50 AM EDT)ComponentValueRef Range Test MethodAnalysis TimePerformed AtPathologist SignatureGLYCOHEMOGLOBIN A1C 6.4(H)4.5 - 6.2 %TBHComment: ADA RECOMMENDED LIMIT 4.0 - 6.0 ADA THERAPEUTIC TARGET < 7.0 ACTION SUGGESTED > 7.0 ESTIMATED AVERAGE ZQOMRAI265ga/dLTBHSpecimen (Source)Anatomical Location / LateralityCollection Method / VolumeCollection TimeReceived Time04/19/2025 10:50 AM EDT1 11:07 AM EDT Narrative CLINISYNC - 04/19/2025 11:27 AM EDT Authorizing ProviderResult TypeResult StatusJayme Parham MDCLINISYNCFinal ResultPerforming OrganizationAddressCity/State/ZIP CodePhone Number [facility] * (ABNORMAL) Hemoglobin A1c (02/03/2023 12:42 PM EDT)Specimen (Source)Anatomical Location / LateralityCollection Method / VolumeCollection TimeReceived Time BloodVenous blood specimen / Unknown Narrative Authorizing ProviderResult TypeResult StatusJayme Parham MDLAB BLOOD ORDERABLESFinal ResultPerforming OrganizationAddressCity/State/ZIP CodePhone Number [facility] * Color Fundus Photography - OU - Both Eyes (05/14/2021 12:00 PM EDT)Anatomical RegionLateralityModalityHeadFundus PhotographySpecimen (Source)Anatomical Location / LateralityCollection Method / VolumeCollection TimeReceived Time 05/14/2021 12:00 PM EDT Narrative 05/14/2021 12:00 PM EDT PERFORMED AT [facility] LOCATION:[id number] [facility] Procedure Note CONVERSION, GENERIC - 11/27/2022 PERFORMED AT [facility] LOCATION:[id number] [facility] Authorizing ProviderResult TypeResult StatusJayme Parham MDOPHTH PHOTOGRAPHY Final Result * MICROALBUMIN, URINE QUANT (09/13/2019 12:00 PM EST)ComponentValueRef RangeTest MethodAnalysis TimePerformed AtPathologist SignatureGENERIC LEGACY COMPONENT INTERNAL0-1,500ECW NONXML LABSGENERIC LEGACY COMPONENT [id number] NONXML LABSSpecimen (Source)Anatomical Location / LateralityCollection Method / VolumeCollection TimeReceived Time09/13/2019 12:00 PM EST Narrative Authorizing ProviderResult TypeResult StatusEdganesh WILSON LABSFinal ResultPerforming OrganizationAddressCity/State/ZIP CodePhone Number [facility] NONXML LABS from Last 3 Months or Most Recently Relevant to Health Maintenance Insurance Care Teams Team MemberRelationshipSpecialtyStart DateEnd Jayme Parham MD [address] [facility] [address] [place] [address] (Fax) PCP - GeneralFamily Medicine11/25/22 Jayme Parham MD [address] [facility] [address] [place] [address] (Fax) PCP - ACO Reach12/05/22 Mick Farmer DO [facility] [address] [place] [address] Referring PhysicianOphthalmology2 Renato Santacruz MD [address] [place] [address] Referring PhysicianUrolog08/21/23 Chuy Wood MD [address] [facility] Professional building [address] [place] [phone] Referring PhysicianRheumatolog08/21/23
--- OUTSIDE RECORDS SUMMARY | 2025-05-20 16:10 | XMS_ITS | Encounter Summary ---
Author Organization [facility] Address [address] [place] [address] Care Team Providers Care Mechanical Drafter Name Role Phone Jayme Perez MD Primary Care Provider [phone] Jayme Perez MD Unavailable [phone] Mick Farmer DO Unavailable [phone] Renato Santacruz MD Unavailable [phone] Chuy Wood MD Unavailable [phone] Rebeca Emerson Unavailable [phone] Encounter Details DateTypeDepartmentCare Team (Latest Contact Info)Iegadtcxrxx93/28/2024Clinisync Result Encounter [facility] External Department Unsolicited Provider, Generic External Data Social History Tobacco UseTypesPacks/DayYears UsedDateSmoking Tobacco: FormerCigarettesQuit: 1987Smokeless Tobacco: NeverAlcohol UseStandard Drinks/WeekCommentsNot Currently 0 (1 standard drink = 0.6 oz pure alcohol)B1300 Health LiteracyAnswerDate RecordedHow often do you need to have someone help you when you read instructions, pamphlets, or other written material from your doctor or pharmacy? Never04/08/2024Humiliation, Afraid, Rape, and Kick questionnaireAnswerDate RecordedWithin the last year, have you been afraid of your partner or ex-partner?No12/11/2022Within the last year, have you been humiliated or emotionally abused in other ways by your partner or ex-partner?No12/11/2022 Within the last year, have you been kicked, hit, slapped, or otherwise physically hurt by your partner or ex-partner?No12/11/2022Within the last year, have you been raped or forced to have any kind of sexual activity by your part ner or ex-partner?No12/11/2022Social Connection and Isolation PanelAnswerDate RecordedIn a typical week, how many times do you talk on the phone with family, friends, or neighbors?More than three times a week04/08/2024How often do you get together with friends or relatives?More than three times a week04/08/2024How often do you attend bahai or alevism services?Never04/08/2024o you belong to any clubs or organizations such as bahai groups, unions, fraTailored Republic or athletic groups, or school groups?No04/08/2024How often do you attend meetings of the clubs or organizations you belong to?Never04/08/2024re you , , , , never , or living with a partner?Vhvfbwy3504/08/2024 AUDIT-CAnswerDate RecordedQ1: How often do you have a drink containing alcohol? Never04/08/2024Q2: How many drinks containing alcohol do you have on a typical day when you are drinking?Patient does not drink04/08/2024Q3: How often do you have six or more drinks on one occasion?Never04/08/2024Overall Financial Resource Strain (CARDIA)AnswerDate RecordedHow hard is it for you to pay for the very basics like food, housing, medical care, and heating?Not hard at all 04/08/2024HQ-2AnswerDate RecordedPatient Health Questionnaire-2 Score0 11/04/2024[facility] [place] of Occupational Health - Occupational Stress QuestionnaireAnswerDate RecordedDo you feel stress - tense, restless, nervous, or anxious, or unable to sleep at night because yourmind is troubled all the time - these days?Not at all04/08/2024Exercise Vital SignAnswerDate RecordedOn average, how many days per week do you engage in moderate to strenuous exercise (like a brisk walk)?4 days04/08/2024On average, how many minutes do you engage in exercise at this level?60 min04/08/2024Hunger Vital SignAnswerDate Recorded Within the past 12 months, you worried that your food would run out before you got the money to buymore.Never true04/08/2024Within the past 12 months, the food you bought just didn't last and you didn't have money to get more.Never true 04/08/2024RAPARE - TransportationAnswerDate RecordedIn the past 12 months, has lack of transportation kept you from medical appointments or from getting medications?No04/08/2024In the past 12 months, has lack of transportation kept you from meetings, work, or from getting things needed for daily living?No 04/08/2024Housing Stability Vital SignAnswerDate RecordedIn the last 12 months, was there a time when you were not able to pay the mortgage or rent on time?No 12/11/2022In the last 12 months, how many places have you lived?In the last 12 months, was there a time when you did not have a steady place to sleep or slept in [place] (including now)?No12/11/2022Housing Stability Vital SignAnswerDate RecordedIn the last 12 months, was there a time when you were not able to pay the mortgage or rent on time?No04/08/2024In the past 12 months, how many times have you moved where you were living?t any time in the past 12 months, were you homeless or living in a long term (including now)?No 04/08/2024EducationAnswerDate RecordedWhat is the highest level of school you have completed or the highest degree you have received?Some college, no degree 01/24/2023CommentsNoSex and Gender InformationValueDate RecordedSex Assigned at CjpegFynnoo44/26/2023 1:32 PM EDTLegal EbfMeufah10/15/2023 6:45 PM EDTGender AkkhrtqbDsclov12/26/2023 1:32 PM EDTSexual OrientationNot on file documented as of this encounter Functional Status * AUDIT-C ScoreAnswerDate of QftsmcvuitAotexe646/26/2024 6:36 PM Vini, Generic * Q1: How often do you have a drink containing alcohol?AnswerDate of Assessment ZwasotAzmpc73/26/2024 6:36 PM Vini Generic * Q2: How many drinks containing alcohol do you have on a typical day when you are drinking?AnswerDate of AssessmentAuthorPatient does not drink04/08/2024 6:36 PM Vini Generic * Q3: How often do you have six or more drinks on one occasion?AnswerDate of OhmtauyafeUctjkcFcocb65/26/2024 6:36 PM Vini, Generic * Over the past 2 weeks, how often have you been bothered by any of the following problems?QuestionAnswerDate of AssessmentAuthorLittle interest or pleasure in doing thingsNot at all11/04/2024 1:00 PM Magalis Velázquez MA Feeling down, depressed, or hopelessNot at 11/04/2024 1:00 PM Magalis Velázquez, MAPatient Health Questionnaire-2 Kqogp231 1:00 PM Magalis Velázquez MA * QuestionAnswerDate of AssessmentAuthorTrouble falling or staying asleep, or sleeping too muchMore than half the days11/04/2024 1:00 PM Eber October, MAFeeling tired or having little energyMore than half the days11/04/2024 1:00 PM Eber October, MAPoor appetite or overeatingMore than half the days 11/04/2024 1:00 PM Magalis Velázquez, MAFeeling bad about yourself - or that you are a failure or have let yourself or your family downNot at 11/04/2024 1:00 PM Magalis Velázquez, MATrouble concentrating on things, such as reading the newspaper or watching televisionSeveral 11/04/2024 1:00 PM Magalis Velázquez, MAMoving or speaking so slowly that other people could have noticed? Or the opposite - being so fidgety or restless that you have been moving around a lot more than usual.Not at all04/ 1:00 PM Eber October, MAThoughts that you would be better off or hurting yourself in some wayNot at all 11/04/2024 1:00 PM Eber Magalis, MAPatient Health Questionnaire-9 Score7 11/04/2024 1:00 PM Magalis Velázquez, MA documented as of this encounter Plan of Treatment DateTypeDepartmentCare Team (Latest Contact Info)Elwdgowgaug54/10/2025 2:30 PM ESTOffice Visit [facility] [address] [place] [address] Jayme Perez MD [address] [facility] [address] [place] [address] documented as of this encounter Procedures Procedure NamePriorityDate/TimeAssociated DiagnosisCommentsXR ABDOMEN 1V 10/09/2023 6:22 AM EDT documented in this encounter Results * XR ABDOMEN 1V (10/09/2023 6:22 AM EDT)Anatomical RegionLateralityModalityOther Specimen (Source)Anatomical Location / LateralityCollection Method / Volume Collection TimeReceived Time10/09/2023 6:22 AM EDT Narrative 10/09/2023 6:[address] [facility] ?[address] ? [place] [address] ?XRay Report ? Signed ? Patient: WILDA SEN ?MR#: [id number] ?? : 1945 ?Acct:[id number] ?? Age/Sex: 78 / F ?ADM Date: 10/08/23 ?? Loc: RAD ? Attending Dr: Williams Jackson M.D. ? Ordering Physician: Williams Jackson M.D. ?? Date of Service: 10/08/23 ?? Procedure(s): XR abdomen 1V ?? Accession Number(s): [id number] ? cc: Williams Jackson M.D.; JAYME PEREZ ? [facility] ? [address] ? [place] [address] ? Patient Name: ?? WILDA SEN ? MRN: [facility]:[id number] ? date: 1945 ?Sex: F ?? Assigned Patient Location: RAD ?? Current Patient Location: ? Accession/Order Number: [id number] ?? Exam Date: 10/08/2023 ??10:37 ?Report Date: 10/09/2023 ??06:22 ? At the request of: ?? WILLIAMS ??COOK ? Procedure: ??XR abdomen 1V ? EXAMINATION: XR abdomen 1V ? HISTORY: Kidney Stone ? COMPARISON: XR abdomen 01/31/2023, CT abdomen pelvis 08/12/2023 ? FINDINGS: ?? KIDNEY/URETER - RIGHT: A few small stones projecting over kidney. ?? KIDNEY/URETER - LEFT: A few small stones projecting over kidney. ?? PELVIS: Numerous pelvic calcifications; grossly stable favoring phleboliths. ? BOWEL: No abnormal dilation or deviation. ?? BONES: No acute abnormality. ?? OTHER: Negative. No abnormal gaseous collections. ? XR/XR abdomen 1V ?? IMPRESSION: ? 1. Bilateral nephrolithiasis. ?? 2. Numerous pelvic calcifications without a convincing distal ureteral stone. ?? If there remains clinical concern follow-up with CT abdomen pelvis. ? Electronically authenticated by: VARGHESE ??PENG ?? Date: 10/09/2023 ??06:22 ? Dictated By: ?Varghese Garay M.D. ? Signed By: ?10/09/23 0625 ? DD/ 0622 ? TD/TT: ? Retail Selling Specialist: Procedure Note Radiology, Radiologist, - 10/09/2023 The [place] [id number] XRay Report Signed Patient: WILDA SEN R#: [id number] : 1945cct:[id number] Age/Sex: 78 / FADM Date: 10/08/23 Loc: RAD Attending Dr: Williams Jackson M.D. Ordering Physician: Williams Jackson M.D. Date of Service: 10/08/23 Procedure(s): XR abdomen 1V Accession Number(s): [id number] cc: Williams Jackson M.D.; JAYME PEREZ The [address] [address] Patient Name: WILDA SEN MRN: [id number] date: 1945 Sex: F Assigned Patient [facility]: [facility] Current Patient Location: Accession/Order Number: [id number] Exam Date: 10/08/2023 10:37 Report Date: 10/09/2023 [...] By: Varghese Garay M.D. Signed By:10/09/23624 DD/ TD/TT: Retail Selling Specialist: Authorizing ProviderResult TypeResult StatusGeneric External Data Provider CLINISYNC IMAGINGFinal Result documented in this encounter Visit Diagnoses Not on filedocumented in this encounter Additional Health Concerns AssessmentNoted TimePHQ-9 Depression Total Score: 7107/22/2022 2:00 PM EST documented as of this encounter Care Teams Team MemberRelationshipSpecialtyStart DateEnd Date Jayme Perez MD [address] [address] PCP - GeneralFamily Medicine11/25/22 Jayme Perez MD [address] [address] PCP - ACO [facility]12/05/22 Mick Farmer DO [address] [place] [address] [address] [place] [address] Referring PhysicianOphthalmology2 Renato Santacruz MD [address] [place] [address] Referring PhysicianUrolog08/21/23 Chuy Wood MD [address] [facility] Professional building [address] [place] [address] Referring PhysicianRheumatology2 Rebeca Emerson, STEMHOLE BORER [address] [place] [address] Social WorkerFamily Medicine03/04//documented as of this encounter
--- OUTSIDE RECORDS SUMMARY | 2025-05-20 16:11 | XMS_ITS | Clinical Summary ---
Author Organization [facility] Address [address] [place] [address] Care Team Providers Care Compounder Helper Name Role Phone Unavailable Primary Care Provider Unavailabl e Social History Tobacco UseTypesPacks/DayYears UsedDateSmoking Tobacco: Never AssessedUT Safety & EnvironmentAnswerDate RecordedFear of Current or Ex-PartnerNot on file 09/04/2023Emotionally AbusedNot on file09/04/2023hysically AbusedNot on file 09/04/2023Sexually AbusedNot on file09/04/2023hysically or Sexually AbusedNot on file09/04/2023CommentsUnknownSex and Gender InformationValueDate RecordedSex Assigned at BirthNot on fileLegal UnjOygzfw47/29/2022 9:40 PM EDT Gender IdentityNot on fileSexual OrientationNot on file Plan of Treatment Health MaintenanceDue DateLast DoneCommentsMedicare Annual Wellness (AWV) 1945Depression Zcyncayob93/24/1958Adult Cguwrrz3704/06/1968Pneumococcal Vaccine: 50+ Years (1 of 1 - PCV)1996Zoster Vaccines (1 of 2)1996 Fall Risk Niazmbldb16/24/2011COVID-19 Vaccine (1 - 2024- season)2025 Influenza Vaccine (#1)2025HIB VaccinesAged OutNo longer eligible based on patient's age to complete this topicHPV VaccinesAged OutNo longer eligible based on patient's age to complete this topicIPV VaccinesAged OutNo longer eligible based on patient's age to complete this topicMeningococcal B VaccineAged OutNo longer eligible based on patient's age to complete this topicMeningococcal VaccineAged OutNo longer eligible based on patient's age to complete this topic Rotavirus VaccinesAged OutNo longer eligible based on patient's age to complete this topic Insurance
--- OUTSIDE RECORDS SUMMARY | 2025-05-20 16:11 | XMS_ITS | Encounter Summary ---
Author Organization [facility] Address [address] [place] [address] Care Team Providers Care Research Clerk Name Role Phone Jayme Perez MD Primary Care Provider [phone] Jayme Perez MD Unavailable [phone] Mick Farmer DO Unavailable [phone] Renato Santacruz MD Unavailable [phone] Radames Wood MD Unavailable [phone] Rebeca Emerson Unavailable [phone] Encounter Details DateTypeDepartmentCare Team (Latest Contact Info)Foulfucarbj62/03/2024Clinisync Result Encounter [facility] External Department Unsolicited Provider, [...] times a week04/08/2024How often do you attend episcopalian or buddhism services?Never04/08/2024o you belong to any clubs or organizations such as episcopalian groups, unions, fraNXE or athletic groups, or school groups?No04/08/2024How often do you attend meetings of the clubs or organizations you belong to?Never04/08/2024re you , , , , never , or living with a partner?Ygsynpe4904/08/2024 AUDIT-CAnswerDate RecordedQ1: How often do you have [...] at all 04/08/2024HQ-2AnswerDate RecordedPatient Health Questionnaire-2 Score0 11/04/2024[facility] [place] of Occupational Health - Occupational Stress QuestionnaireAnswerDate [...] steady place to sleep or slept in [place] min[place]ter (including now)?No12/11/2022Housing Stability Vital SignAnswerDate RecordedIn the last 12 months, was there a time when you were not able to pay the mortgage or rent on time?No04/08/2024In the past 12 months, how many times have you moved where you were living?t any time in the past 12 months, were you homeless or living in a senior care (including now)?No 04/08/2024EducationAnswerDate RecordedWhat is the highest level of school you have completed or the highest degree you have received?Some college, no degree 01/24/2023CommentsNoSex and Gender InformationValueDate RecordedSex Assigned at HnocoVobklr01/26/2023 1:32 PM EDTLegal TypTehjws01/15/2023 6:45 PM EDTGender QhhpbuexQrrbpf17/26/2023 1:32 PM EDTSexual OrientationNot on file documented as of this encounter Functional Status * AUDIT-C ScoreAnswerDate of DxalyygmipQuwvfi966/26/2024 6:36 PM Vini, Generic * Q1: How often do you have a drink containing alcohol?AnswerDate of Assessment JzokqkFslhk17/26/2024 6:36 PM Vini Generic * Q2: How many drinks containing alcohol do you have on a typical day when you are drinking?AnswerDate of AssessmentAuthorPatient does not drink04/08/2024 6:36 PM Vini Generic * Q3: How often do you have six or more drinks on one occasion?AnswerDate of UiqhymwqlbXvkrznFtwca22/26/2024 6:36 PM Vnii, Generic * Over the past 2 weeks, how often have you been bothered by any of the following problems?QuestionAnswerDate of AssessmentAuthorLittle interest or pleasure in doing thingsNot at all11/04/2024 1:00 PM Magalis Velázquez MA Feeling down, depressed, or hopelessNot at 11/04/2024 1:00 PM Magalis Velázquez, MAPatient Health Questionnaire-2 Rtgel378 1:00 PM Magalis Velázquez MA * QuestionAnswerDate of AssessmentAuthorTrouble falling or staying asleep, or sleeping too muchMore than half the days11/04/2024 1:00 PM Eber October, MAFeeling tired or having little energyMore than half the days11/04/2024 1:00 PM Eber October, MAPoor appetite or overeatingMore than half the days 11/04/2024 1:00 PM Magails Velázquez, MAFeeling bad about yourself - or [...] wayNot at all 11/04/2024 1:00 PM Eber October, MAPatient Health Questionnaire-9 Score7 11/04/2024 1:00 PM Magalis Velázquez, MA documented as of this encounter Plan of Treatment DateTypeDepartmentCare Team (Latest Contact Info)Yccfcmrqaos52/10/2025 2:30 PM ESTOffice Visit [facility] [address] [place] [address] Jayme Perez MD 112 [facility] [address] [place] [address] documented as of this encounter Procedures Procedure NamePriorityDate/TimeAssociated DiagnosisCommentsXR DEXA AXIAL FARNSAKV23/03/2024 3:50 PM EDT documented in this encounter Results * XR DEXA AXIAL SKELETON (01/14/2024 3:50 PM EDT)Anatomical RegionLaterality ModalityOtherSpecimen (Source)Anatomical Location / LateralityCollection Method / VolumeCollection TimeReceived Time01/14/2024 3:50 PM EDT Narrative 01/14/2024 3:53 PM EDT [facility] ?[address] ? [place] [address] ?XRay Report ? Signed ? Patient: WILDA SEN ?MR#: [id number] ?? : 1945 ?Acct:[id number] ?? Age/Sex: 78 / F ?ADM Date: 01/14/24 ?? Loc: RAD ? Attending Dr: RADAMES WOOD ? Ordering Physician: RADAMES WOOD ?? Date of Service: 01/14/24 ?? Procedure(s): XR DEXA axial skeleton ?? Accession Number(s): [id number] ? cc: JAYME PEREZ ; RADAMES WOOD ? [facility] ? [address] ? [place] [address] ? Patient Name: ?? WILDA SEN ? MRN: [facility]:[id number] ? date: 1945 ?Sex: F ?? Assigned Patient Location: RAD ?? Current Patient Location: RAD ?? Accession/Order Number: [id number] ?? Exam Date: 01/14/2024 ??12:48 ?Report Date: 01/14/2024 ??15:50 ? At the request of: ?? RADAMES ??CAYETANO ? Procedure: ??XR DEXA axial skeleton ? EXAMINATION: XR DEXA axial skeleton ? HISTORY: Osteoporosis ? COMPARISON: DEXA bone densitometry 05/09/2021 ? TECHNIQUE: Dual-energy X-ray absorptiometry (DXA) was performed. ? FINDINGS: ?? SPINE ANALYSIS: ?? Average bone mineral density is 0.794 g/cm2. ?? T-score (standard deviation relative to young adult mean): -3.2 . ?? +5.4% change since prior study. ? HIP ANALYSIS: ?? Lowest bone mineral density is within the left femoral neck, 0.758 g/cm2. ?? T-score (standard deviation relative to young adult mean): -2.0 . ?? +4.2% change since prior study. ? XR/XR DEXA axial skeleton ?? IMPRESSION: ? World Health Organization Classification: Osteoporosis - High Fracture Risk ?? FRAX: Cannot calculate. ? Pharmacologic treatment recommendations ?? * No uniform recommendation applies to all patients. Management plans must be ?? individualized. ?? * Consider initiating pharmacologic treatment in postmenopausal women and men ?? >= 50 years of age who have the following: Primary fracture prevention: ?? * T-score <= - 2.5 at the femoral neck, total hip, lumbar spine, 33% radius (some uncertainty with existing data) by DXA. ?? * Low bone mass (osteopenia: T-score between - 1.0 and - 2.5) at the femoral ?? neck or total hip by DXA with a 10-year hip fracture risk >= 3% or a 10-year major osteoporosis-related fracture risk >= 20% (i.e., clinical vertebral, hip, ?? forearm, or proximal humerus) based on the [place]-adapted FRAXregistered model. ?? Secondary fracture prevention: ?? * Fracture of the hip or vertebra regardless of BMD [4, 5]. ?? * Fracture of proximal humerus, pelvis, or distal forearm in persons with low ?? bone mass (osteopenia: T-score between - 1.0 and - 2.5). The decision to treat ? should be individualized in persons with a fracture of the proximal humerus, ?? pelvis, or distal forearm who do not have osteopenia or low BMD [12, 13]. ?? Leida MS, Keshawn SL, Edgar KL, Yelena EM, Elizabeth KG, AJ, Kitty ?? ES. ?? The clinician's guide to prevention and treatment of osteoporosis. Osteoporos ?? Int. 2021;33(10):0169-0138. doi: 10.1007/e59633-208-70049-s. Epub 2021 ? 28. Erratum in: Osteoporos Int. 2021Feb 07;: PMID: [id number]; PMCID: ?? [id number]. ? Electronically authenticated by: VARGHESE ??PENG ?? Date: 01/14/2024 ??15:50 ? Dictated By: ?Varghese Garay M.D. ? Signed By: ?01/14/24 1553 ? DD/ 1550 ? TD/TT: ? Hand Loom Weaver: Procedure Note Radiology, Radiologist, MD - 01/14/2024 The [place] [id number] XRay Report Signed Patient: WILDA SEN JMR#: [id number] : 1945cct:[id number] Age/Sex: 78 / FADM Date: 01/14/24 Loc: RAD Attending Dr: RADAMES WOOD Ordering Physician: RADAMES WOOD Date of Service: 01/14/24 Procedure(s): XR DEXA axial skeleton Accession Number(s): [id number] cc: JAYME PEREZ ; RADAMES WOOD The [address] [address] Patient Name: WILDA SEN MRN: [id number] date: 1945 Sex: F Assigned Patient Location: RAD Current Patient Location: RAD Accession/Order Number: [id number] Exam Date: 01/14/2024 12:48 Report Date: 01/14/2024 [...] 10-year hip fracture risk >= 3% or q35-hxwu major osteoporosis-related fracture risk >= 20% (i.e., [...] to prevention and treatment of osteoporosis.Osteoporos Int. 2021;33(10):5858-8094. doi: 10.1007/r56748-366-25689-i. Epub . Erratum in: Osteoporos Int. 2021Feb 07;: PMID: [id number]; PMCID: [id number]. Electronically authenticated by: VARGHESE GARAY Date: 01/14/2024 15:50 Dictated By: Varghese Garay M.D. Signed By:01/14/24 1553 DD/ 1550 TD/TT: Hand Loom Weaver: Authorizing ProviderResult TypeResult StatusGeneric External Data Provider CLINISYNC IMAGINGFinal Result documented in this encounter Visit Diagnoses Not on filedocumented in this encounter Additional Health Concerns AssessmentNoted TimePHQ-9 Depression Total Score: 7107/22/2022 2:00 PM EST documented as of this encounter Care Teams Team MemberRelationshipSpecialtyStart DateEnd Date Jayme Perez MD [address] [place] [address] PCP - GeneralFamily Medicine11/25/22 Jayme Perez MD [address] [place] [address] PCP - ACO [place]12/05/22 Mick Farmer DO [address] [place] [address] Referring PhysicianOphthalmology08/21/23 Renato Santacruz MD [address] [place] [address] Referring PhysicianUrolog08/21/23 Radames Wood MD [address] [place] [address] Referring PhysicianRheumatolog08/21/23 Rebeca Emerson, DINA [address] [place] [address] Social WorkerFamily Medicine/documented as of this encounter
--- OUTSIDE RECORDS SUMMARY | 2025-05-20 16:11 | XMS_ITS | Encounter Summary ---
Author Organization [facility] Address [address] [place] [address] Care Team Providers Care Field Associate Name Role Phone Jayme Parham MD Primary Care Provider [phone] Jayme Parham MD Unavailable [phone] Mick Farmer DO Unavailable [phone] Renato Santacruz MD Unavailable [phone] Chuy Wood MD Unavailable [phone] Encounter Details DateTypeDepartmentCare Team (Latest Contact Info)Lzmsdyrvxtt75/27/2025Orders Only [facility] [place] [phone] Kimberly, [place], [place] 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 (HCC) Social History Tobacco UseTypesPacks/DayYears UsedDateSmoking Tobacco: FormerCigarettesQuit: [...] times a week04/08/2024How often do you attend holiness or mandaeism services?Never04/08/2024o you belong to any clubs or organizations such as holiness groups, unions, fraternal or athletic groups, or school groups?No04/08/2024How often do you attend meetings of the clubs or organizations you belong to?Never04/08/2024re you , , , , never , or living with a partner?Pmovwbg2204/08/2024 AUDIT-CAnswerDate RecordedQ1: How often do you have [...] at all 04/08/2024HQ-2AnswerDate RecordedPatient Health Questionnaire-2 Score0 11/04/2024[facility] [place] of Occupational Health - Occupational Stress QuestionnaireAnswerDate [...] steady place to sleep or slept in [facility] (including now)?No12/11/2022Housing Stability Vital SignAnswerDate RecordedIn the last 12 months, was there a time when you were not able to pay the mortgage or rent on time?No04/08/2024In the past 12 months, how many times have you moved where you were living?t any time in the past 12 months, were you homeless or living in a retirement (including now)?No 04/08/2024EducationAnswerDate RecordedWhat is the highest level of school you have completed or the highest degree you have received?Some college, no degree 01/24/2023CommentsNoSex and Gender InformationValueDate RecordedSex Assigned at SzsxlYmolnz65/26/2023 1:32 PM EDTLegal XmuYqxctf34/15/2023 6:45 PM EDTGender ZzoillnoNhaalx68/26/2023 1:32 PM EDTSexual OrientationNot on file documented as of this encounter Plan of Treatment DateTypeDepartmentCare Team (Latest Contact Info)Stcvulyceta16/10/2025 2:30 PM ESTOffice Visit [facility] [place] [facility] [address] [place] [address] Jayme Parham MD [address] [address] (Fax) documented as of this encounter Visit Diagnoses Diagnosis 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 (HCC) Atrial fibrillation Type 2 diabetes mellitus with diabetic microalbuminuria, 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, without long-term current use of insulin (HCC) Stage 3a chronic kidney disease (CMS-HCC) Microalbuminuria Proteinuria documented in this encounter Additional Health Concerns AssessmentNoted TimePHQ-9 Depression Total Score: 7011/04/2024 1:00 PM EDT documented as of this encounter Care Teams Team MemberRelationshipSpecialtyStart DateEnd Date Jayme Parham MD [address] [address] (Fax) PCP - GeneralFamily Medicine11/25/22 Jayme Parham MD [address] [address] (Fax) PCP - ACO Reach12/05/22 Mick Farmer DO [facility] [address] [place] [address] Referring PhysicianOphthalmology2 Renato Santacruz MD [address] [place] [address] Referring PhysicianUrolog08/21/23 Chuy Wood MD [address] [facility] [address] [place] [phone] Referring PhysicianRheumatology2/03/06documented as of this encounter
--- OUTSIDE RECORDS SUMMARY | 2025-05-20 16:11 | XMS_ITS | Encounter Summary ---
Author Organization [facility] Address [address] [place] [address] Care Team Providers Care Tool Grinder Set Up Operator Gear Name Role Phone Jayme Perez MD Primary Care Provider Jayme Perez MD Unavailable [phone] Mick Farmer DO Unavailable [phone] Renato Santacruz MD Unavailable [phone] Chuy Wood MD Unavailable Rebeca Emerson Unavailable [phone] Encounter Details DateTypeDepartmentCare Team (Latest Contact Info)Kgvxhhicbpd35/11/2024Clinisync Result Encounter [facility] External Department Unsolicited Jayme Perez MD 112 [facility] [address] [place] [address] Social History Tobacco UseTypesPacks/DayYears UsedDateSmoking Tobacco: FormerCigarettesQuit: [...] week04/08/2024How often do you attend bahai or church services?Never04/08/2024o you belong to any clubs or organizations such as bahai groups, unions, fraternal or athletic groups, or school groups?No04/08/2024How often do you attend meetings of the clubs or organizations you belong to?Never04/08/2024re you , , , , never , or living with a partner?Qyraxam0104/08/2024 AUDIT-CAnswerDate RecordedQ1: How often do you have [...] at all 04/08/2024HQ-2AnswerDate RecordedPatient Health Questionnaire-2 Score0 11/04/2024[facility] [place] of Occupational Health - Occupational Stress QuestionnaireAnswerDate [...] steady place to sleep or slept in [place] (including now)?No12/11/2022Housing Stability Vital SignAnswerDate RecordedIn the last 12 months, was there a time when you were not able to pay the mortgage or rent on time?No04/08/2024In the past 12 months, how many times have you moved where you were living?t any time in the past 12 months, were you homeless or living in a snf (including now)?No 04/08/2024EducationAnswerDate RecordedWhat is the highest level of school you have completed or the highest degree you have received?Some college, no degree 01/24/2023CommentsNoSex and Gender InformationValueDate RecordedSex Assigned at WiobwQjtkak96/26/2023 1:32 PM EDTLegal TpeEhduxa74/15/2023 6:45 PM EDTGender LvgdztqkOzqazm34/26/2023 1:32 PM EDTSexual OrientationNot on file documented as of this encounter Functional Status * Over the past 2 weeks, how often have you been bothered by any of the following problems?QuestionAnswerDate of AssessmentAuthorLittle interest or pleasure in doing thingsNot at all11/04/2024 1:00 PM Magalis Velázquez MA Feeling down, depressed, or hopelessNot at all11/04/2024 1:00 PM Magalis Velázquez, MAPatient Health Questionnaire-2 Pjmvv932 1:00 PM Magalis Velázquez MA * QuestionAnswerDate of AssessmentAuthorTrouble falling or staying asleep, or sleeping too muchMore than half the days11/04/2024 1:00 PM Magalis Velázquez, MAFeeling tired or having little energyMore than half the days11/04/2024 1:00 PM Magalis Velázquez, MAPoor appetite or overeatingMore than half the days 11/04/2024 1:00 PM Magalis Velázquez, MAFeeling bad about yourself - or that you are a failure or have let yourself or your family downNot at all11/04/2024 1:00 PM Magalis Velázquez, MATrouble concentrating on things, such as reading the newspaper or watching televisionSeveral days11/04/2024 1:00 PM Magalis Velázquez, MAMoving or speaking so slowly that other people could have noticed? Or the opposite - being so fidgety or restless that you have been moving around a lot more than usual.Not at all11/04/2024 1:00 PM Magalis Velázquez, MAThoughts that you would be better off or hurting yourself in some wayNot at all 11/04/2024 1:00 PM Magalis Velázquez, MAPatient Health Questionnaire-9 Score7 11/04/2024 1:00 PM Magalis Velázquez MA documented as of this encounter Plan of Treatment DateTypeDepartmentCare Team (Latest Contact Info)Kckkmfkroqw97/10/2025 2:30 PM ESTOffice Visit [facility] [place] [facility] [address] [place] [address] Jayme Perez MD [address] [place] [address] (Fax) documented as of this encounter Procedures Procedure NamePriorityDate/TimeAssociated DiagnosisCommentsCT ABDOMEN PELVIS W CON04/23/2024 4:45 AM EDT documented in this encounter Results * CT ABDOMEN PELVIS W CON (04/23/2024 4:45 AM EDT)Anatomical RegionLaterality ModalityOtherSpecimen (Source)Anatomical Location / LateralityCollection Method / VolumeCollection TimeReceived Time04/23/2024 4:45 AM EDT Narrative 04/23/2024 4:48 AM EDT [facility] ?[address] ? [place] [address] ? CT Scan Report ? Signed ? Patient: MCKINLEYWILDA Hazel ?MR#: [id number] ?? : 1945 ?Acct:[id number] ?? Age/Sex: 79 / F ?ADM Date: 04/22/24 ?? Loc: LAB ? Attending Dr: JAYME PEREZ ? Ordering Physician: JAYME PEREZ ?? Date of Service: 04/22/24 ?? Procedure(s): CT abdomen pelvis w con ?? Accession Number(s): [id number] ? cc: JAYME PEREZ ? [facility] ? [address] ? [place] [address] ? Patient Name: ?? WILDA SEN ? MRN: [id number] ? date: 1945 ?Sex: F ?? Assigned Patient Location: LAB ?? Current Patient Location: ? Accession/Order Number: [id number] ?? Exam Date: 04/22/2024 ??12:40 ?Report Date: 04/23/2024 ??04:45 ? At the request of: ?? EDWARD ??HEMEYER ? Procedure: ??CT abdomen pelvis w con ? EXAMINATION: CT abdomen pelvis w con ? HISTORY: Unexplained weight loss R63.4 ? COMPARISON: CT abdomen pelvis 08/12/2023 ? TECHNIQUE: Axial, Coronal, and Sagittal images were obtained without and/or ?? with IV contrast as indicated by examination type. Dose reduction techniques ?? were achieved by using automated exposure control and/or adjustment of mA ?? and/or kV according to patient size and/or use of iterative reconstruction ?? technique. ? FINDINGS: ?? LUNG BASES: No visible pulmonary or pleural disease. ?? LIVER: No enlargement, atrophy, suspicious density, or significant focal ?? lesion. ?? BILIARY: No dilatation or calcification. ?? PANCREAS: No lesion, fluid collection, or abnormal duct dilatation. ?? SPLEEN: No enlargement or focal lesion. ?? ADRENALS: Grossly stable, nonspecific 11 mm nodule within left adrenal gland. ?? KIDNEYS: 2 nonobstructing small stones within right kidney and a ?? benign-appearing cyst. Unremarkable left kidney and bilateral ureters. No ?? mass, ?? obstruction, or calcification. ?? BOWEL/MESENTERY: No visible mass, obstruction, or bowel wall thickening. ?? AORTA/VASCULAR: No aneurysm or dissection. ?? RETROPERITONEUM: No mass or adenopathy. ?? LYMPH NODES: No adenopathy. ?? URINARY BLADDER: No visible focal wall thickening, lesion, or calculus. ?? PELVIC ORGANS: Hysterectomy. ?? ABDOMINAL WALL: No mass or hernia. ?? BONES: No bony lesion or fracture. L5-S1 marked degenerative disc disease. ?? OTHER: Negative. ? CT/CT abdomen pelvis w con ?? IMPRESSION: ? 1. No abnormal or suspicious findings to account for patient's symptoms. ?? 2. Stable, chronic left adrenal nodule; nonspecific. ?? 3. Nonobstructing nephrolithiasis. ?? 4. Marked degenerative disc disease at L5-S1. ? Electronically authenticated by: VARGHESE ??PENG ?? Date: 04/23/2024 ??04:45 ? Dictated By: ?Varghese Garay M.D. ? Signed By: ?04/23/24 0448 ? DD/ 0445 ? TD/TT: ? Ordnance Technician: Procedure Note Radiology, Radiologist, - 04/23/[address] [address] [address] Scan Report Signed Patient: WILDA SEN RODOLFO#: [id number] : 1945Acct:[id number] Age/Sex: 79 / FADM Date: 04/22/24 Loc: LAB Attending Dr: JAYME PEREZ Ordering Physician: JAYME PEREZ Date of Service: 04/22/24 Procedure(s): CT abdomen pelvis w con Accession Number(s): [id number] cc: JAYME PEREZ [address] [address] Patient Name: WIDLA SEN MRN: [id number] date: 1945 Sex: F Assigned Patient Location: LAB Current Patient Location: Accession/Order Number: [id number] Exam Date: 04/22/2024 12:40 Report Date: 04/23/2024 [...] Garay M.D. Signed By:04/23/24447 DD/ 4 TD/TT: Ordnance Technician: Authorizing ProviderResult TypeResult StatusEdganesh Perez MDCLINISYNC IMAGING Final Result documented in this encounter Visit Diagnoses Not on filedocumented in this encounter Additional Health Concerns AssessmentNoted TimePHQ-9 Depression Total Score: 7107/22/2022 2:00 PM EST documented as of this encounter Care Teams Team MemberRelationshipSpecialtyStart DateEnd Date Jayme Perez MD 112 [facility] 100 [place] [address] PCP - GeneralFamily Medicine11/25/22 Jayme Perez MD 112 [facility] [address] [place] [address] PCP - ACO Reach12/05/22 Mick Farmer DO [address] [place] [address] [address] [place] [address] Referring PhysicianOphthalmology08/21/23 Renato Santacruz MD 290 [place] [address] Referring PhysicianUrolog08/21/23 Chuy Wood MD [address] [facility] Professional building [address] [place] [phone] Referring PhysicianRheumatolog08/21/23 Rebeca Emerson, CUT TO LENGTH OPERATOR [address] [place], [place] [phone] Social WorkerFamily Medicine/documented as of this encounter
--- OUTSIDE RECORDS SUMMARY | 2025-05-20 16:11 | XMS_ITS | Encounter Summary ---
Author Organization [facility] Address [address] [place] [address] Care Team Providers Care Tire Room Supervisor Name Role Phone Jayme Perez MD Primary Care Provider Jayme Perez MD Unavailable [phone] Mick Farmer DO Unavailable [phone] Renato Santacruz MD Unavailable [phone] Chuy Wood MD Unavailable Rebeca Emerson Unavailable [phone] Encounter Details DateTypeDepartmentCare Team (Latest Contact Info)Milpwnpdtsq67/02/2024Clinisync Result Encounter [facility] External Department Unsolicited Jayme Perez MD 112 [facility] [address] [place] [address] Social History Tobacco UseTypesPacks/DayYears UsedDateSmoking Tobacco: FormerCigarettesQuit: [...] times a week04/08/2024How often do you attend anglican or shinto services?Never04/08/2024o you belong to any clubs or organizations such as anglican groups, unions, fraternal or athletic groups, or school groups?No04/08/2024How often do you attend meetings of the clubs or organizations you belong to?Never04/08/2024re you , , , , never , or living with a partner?Rktapin8404/08/2024 AUDIT-CAnswerDate RecordedQ1: How often do you have [...] at all 04/08/2024HQ-2AnswerDate RecordedPatient Health Questionnaire-2 Score0 11/04/2024[facility] [place] of Occupational Health - Occupational Stress QuestionnaireAnswerDate [...] steady place to sleep or slept in [place] (including now)?No12/11/2022Housing Stability Vital SignAnswerDate RecordedIn the last 12 months, was there a time when you were not able to pay the mortgage or rent on time?No04/08/2024In the past 12 months, how many times have you moved where you were living?t any time in the past 12 months, were you homeless or living in a alf (including now)?No 04/08/2024EducationAnswerDate RecordedWhat is the highest level of school you have completed or the highest degree you have received?Some college, no degree 01/24/2023CommentsNoSex and Gender InformationValueDate RecordedSex Assigned at RqtrlFbswkl39/26/2023 1:32 PM EDTLegal AddZylegz82/15/2023 6:45 PM EDTGender AotnwvxoUfuuts12/26/2023 1:32 PM EDTSexual OrientationNot on file documented as of this encounter Functional Status * Over the past 2 weeks, how often have you been bothered by any of the following problems?QuestionAnswerDate of AssessmentAuthorLittle interest or pleasure in doing thingsNot at all11/04/2024 1:00 PM Magalis Velázquez MA Feeling down, depressed, or hopelessNot at all11/04/2024 1:00 PM Magalis Velázquez, MAPatient Health Questionnaire-2 Qeuvp876 1:00 PM Magalis Velázquez MA * QuestionAnswerDate [...] Plan of Treatment DateTypeDepartmentCare Team (Latest Contact Info)Xnjjdpxjdrr43/10/2025 2:30 PM ESTOffice Visit [facility] [place] [facility] [address] [place] [address] Jayme Perez MD [address] [place] [address] (Fax) documented as of this encounter Procedures Procedure NamePriorityDate/TimeAssociated DiagnosisCommentsCT CHEST W CONTRAST 05/15/2024 7:23 AM EDT documented in this encounter Results * CT CHEST W CONTRAST (05/15/2024 7:23 AM EDT)Anatomical RegionLaterality ModalityOtherSpecimen (Source)Anatomical Location / LateralityCollection Method / VolumeCollection TimeReceived Time05/15/2024 7:23 AM EDT Narrative 05/15/2024 7:26 AM EDT [facility] ?[address] ? [place] [address] ? CT Scan Report ? Signed ? Patient: WILDA SEN ?MR#: [id number] ?? : 1945 ?Acct:[id number] ?? Age/Sex: 79 / F ?ADM Date: 05/14/24 ?? Loc: CT ? Attending Dr: JAYME PEREZ ? Ordering Physician: JAYME PEREZ ?? Date of Service: 05/14/24 ?? Procedure(s): CT chest w con ?? Accession Number(s): [id number] ? cc: JAYME PEREZ ? [facility] ? [address] ? [place] [address] ? Patient Name: ?? WILDA SEN ? MRN: [id number] ? date: 1945 ?Sex: F ?? Assigned Patient Location: CT ?? Current Patient Location: ? Accession/Order Number: [id number] ?? Exam Date: 05/14/2024 ??09:00 ?Report Date: 05/15/2024 ??07:23 ? At the request of: ?? JAYME ??HEMEYER ? Procedure: ??CT chest w con ? EXAMINATION: CT chest w con ? HISTORY: Unexplained Weight Loss, Former Smoker, Immunosuppressed [ ? COMPARISON: CT chest 09/21/2019 ? TECHNIQUE: Multi-planar CT images were obtained without and/or with IV ?? contrast ?? as indicated by examination type. Axial, Coronal, and Sagittal images. Dose ?? reduction techniques were achieved by using automated exposure control and/or ?? adjustment of mA and/or kV according to patient size and/or use of iterative ?? reconstruction technique. ? FINDINGS: ?? LUNGS: Stable surgical changes within right lung base and mild peripheral ?? scarring. No acute infiltrates or significant chronic interstitial changes or ?? emphysematous changes. ?? PLEURA: No mass, effusion, or pneumothorax. ?? VASCULATURE: No abnormality. ?? VICTORINO: No mass or adenopathy. ?? MEDIASTINUM: No mass or adenopathy. ?? CARDIAC: No enlargement or pericardial thickening.. Coronary artery ?? calcifications: Marked ?? AORTA: No aneurysm or dissection. ?? CHEST WALL: No mass or axillary adenopathy. ?? BONES: Stable postsurgical/traumatic changes of right ribs. No bone lesion or ?? fracture. ?? LIMITED ABDOMEN: No suspicious findings Limited images of the upper abdomen. ?? OTHER: Negative. ? CT/CT chest w con ?? IMPRESSION: ? 1. No new or suspicious findings to account for patient's symptoms. ?? 2. Stable surgical changes of right lung and ribs. ?? 3. Marked atherosclerotic coronary artery disease. ? Electronically authenticated by: VARGHESE ??PENG ?? Date: 05/15/2024 ??07:23 ? Dictated By: ?Varghese Garay M.D. ? Signed By: ?05/15/24725 ? DD/ 2 ? TD/TT: ? Featheredge Machine Operator: Procedure Note Radiology, Radiologist, MD - 05/15/2024 [place] [address] CT Scan Report Signed Patient: WILDA SEN JMR#: [id number] : 6Acct:[id number] Age/Sex: 79 / FADM Date: 05/14/24 Loc: CT Attending Dr: JAYME PEREZ Ordering Physician: JAYME PEREZ Date of Service: 05/14/24 Procedure(s): CT chest w con Accession Number(s): [id number] cc: JAYME PEREZ The [place] [id number] Patient Name: WILDA SEN MRN: [id number] date: 1945 Sex: F Assigned Patient Location: CT Current Patient Location: Accession/Order Number: [id number] Exam Date: 05/14/2024 09:00 Report Date: 05/15/2024 [...] Garay M.D. Signed By:05/15/24725 DD/ 2 TD/TT: Featheredge Machine Operator: Authorizing ProviderResult TypeResult Alvina Perez MDCLINISYNC IMAGING Final Result documented in this encounter Visit Diagnoses Not on filedocumented in this encounter Additional Health Concerns AssessmentNoted TimePHQ-9 Depression Total Score: 7107/22/2022 2:00 PM EST documented as of this encounter Care Teams Team MemberRelationshipSpecialtyStart DateEnd Date Jayme Perez MD [address] [place] [address] PCP - GeneralFamily Medicine11/25/22 Jayme Perez MD [address] [place] [address] PCP - ACO Reach12/05/22 Mick Farmer DO [address] [place] [address] Referring PhysicianOphthalmology08/21/23 Renato Santacruz MD [address] [place] [address] Referring PhysicianUrolog08/21/23 Chuy Wood MD [address] [facility] Professional building [address] [place] [phone] Referring PhysicianRheumatolog08/21/23 Rebeca Emerson, FIELD ARTILLERY CREWMEMBER [address] [place] [address] Social WorkerFamily Medicine/documented as of this encounter
--- OUTSIDE RECORDS SUMMARY | 2025-05-20 16:11 | XMS_ITS | Encounter Summary ---
Author Organization [facility] Address [address] [place] [address] Care Team Providers Care Fish Cleaner Name Role Phone Jayme Perez MD Primary Care Provider [phone] Jayme Perez MD Unavailable [phone] Mick Farmer DO Unavailable [phone] Renato Santacruz MD Unavailable [phone] Chuy Wood MD Unavailable [phone] Rebeca Emerson Unavailable [phone] Encounter Details DateTypeDepartmentCare Team (Latest Contact Info)Jvoszchiwov76/23/2024Clinisync Result Encounter [facility] External Department Unsolicited Provider, [...] times a week04/08/2024How often do you attend mandaeism or denominational services?Never04/08/2024o you belong to any clubs or organizations such as mandaeism groups, unions, fraChippmunk or athletic groups, or school groups?No04/08/2024How often do you attend meetings of the clubs or organizations you belong to?Never04/08/2024re you , , , , never , or living with a partner?Cytugnx1804/08/2024 AUDIT-CAnswerDate RecordedQ1: How often do you have [...] at all 04/08/2024HQ-2AnswerDate RecordedPatient Health Questionnaire-2 Score0 11/04/2024[facility] Occupational Health - Occupational Stress QuestionnaireAnswerDate [...] steady place to sleep or slept in [facility] (including now)?No12/11/2022Housing Stability Vital SignAnswerDate RecordedIn the last 12 months, was there a time when you were not able to pay the mortgage or rent on time?No04/08/2024In the past 12 months, how many times have you moved where you were living?t any time in the past 12 months, were you homeless or living in a longterm (including now)?No 04/08/2024EducationAnswerDate RecordedWhat is the highest level of school you have completed or the highest degree you have received?Some college, no degree 01/24/2023CommentsNoSex and Gender InformationValueDate RecordedSex Assigned at LpbydYqsyze56/26/2023 1:32 PM EDTLegal UfiUfuoqo54/15/2023 6:45 PM EDTGender DnlabphdBqehlb14/26/2023 1:32 PM EDTSexual OrientationNot on file documented as of this encounter Functional Status * Over the past 2 weeks, how often have you been bothered by any of the following problems?QuestionAnswerDate of AssessmentAuthorLittle interest or pleasure in doing thingsNot at all11/04/2024 1:00 PM Magalis Velázquez MA Feeling down, depressed, or hopelessNot at all11/04/2024 1:00 PM Eber Magalis, MAPatient Health Questionnaire-2 Hnvqd604 1:00 PM Magalis Velázquez MA * QuestionAnswerDate of AssessmentAuthorTrouble falling or staying asleep, or sleeping too muchMore than half the days11/04/2024 1:00 PM Eber Magalis, MAFeeling tired or having little energyMore than half the days11/04/2024 1:00 PM Eber Magalis, MAPoor appetite or overeatingMore than half the [...] Plan of Treatment DateTypeDepartmentCare Team (Latest Contact Info)Xkiuzigsoku20/10/2025 2:30 PM ESTOffice Visit [facility] [place] [address] [place] [address] Jayme Perez MD [address] [facility] [address] [place] [address] documented as of this encounter Procedures Procedure NamePriorityDate/TimeAssociated DiagnosisCommentsXR ABDOMEN 1V 07/05/2024 11:19 PM EST documented in this encounter Results * XR ABDOMEN 1V (07/05/2024 11:19 PM EST)Anatomical RegionLateralityModality OtherSpecimen (Source)Anatomical Location / LateralityCollection Method / VolumeCollection TimeReceived Time07/05/2024 11:19 PM EST Narrative 07/05/2024 11:22 PM EST [facility] ?[address] ? [place] [address] ?XRay Report ? Signed ? Patient: WILDA SEN ?MR#: [id number] ?? : 1945 ?Acct:[id number] ?? Age/Sex: 79 / F ?ADM Date: 07/05/24 ?? Loc: RAD ? Attending Dr: Williams Jackson M.D. ? Ordering Physician: Williams Jackson M.D. ?? Date of Service: 07/05/24 ?? Procedure(s): XR abdomen 1V ?? Accession Number(s): [id number] ? cc: Williams Jackson M.D.; JAYME PEREZ ? [facility] ? [address] [place] [address] ? [place] [address] ? Patient Name: ?? WILDA SEN ? MRN: [facility]:[id number] ? date: 1945 ?Sex: F ?? Assigned Patient Location: RAD ?? Current Patient Location: RAD ?? Accession/Order Number: [id number] ?? Exam Date: 07/05/2024 ??09:18 ?Report Date: 07/05/2024 ??23:19 ? At the request of: ?? WILLIAMS ??CORA ? Procedure: ??XR abdomen 1V ? EXAMINATION: XR abdomen 1V ? HISTORY: Kidney Stone ? COMPARISON: XR abdomen 10/08/2023 ? FINDINGS: ?? KIDNEY/URETER - RIGHT: No visible renal or ureteral calcifications. ?? KIDNEY/URETER - LEFT: No visible renal or ureteral calcifications. ?? PELVIS: No visible ureteral stones. Numerous pelvic calcifications bilaterally ? suspected to represent phleboliths. ? BOWEL: No abnormal dilation or deviation. ?? BONES: No acute abnormality. ?? OTHER: Negative. No abnormal gaseous collections. ? XR/XR abdomen 1V ?? IMPRESSION: ? 1. No convincing kidney stones. ?? 2. Numerous pelvic calcifications. A distal ureteral stone cannot be excluded ?? on abdominal radiographs. ? Electronically authenticated by: VARGHESE ??PENG ?? Date: 07/05/2024 ??23:19 ? Dictated By: ?Varghese Garay M.D. ? Signed By: ?07/05/242 ? DD/ 2319 ? TD/TT: ? Cashier And Waiter/Waitress: Procedure Note Radiology, Radiologist, MD - 07/05/2024 [place] [address] XRay Report Signed Patient: WILDA SEN JMR#: [id number] : 1945cct:[id number] Age/Sex: 79 / FADM Date: 07/05/24 Loc: RAD Attending Dr: Williams Jackson M.D. Ordering Physician: Williams Jackson M.D. Date of Service: 07/05/24 Procedure(s): XR abdomen 1V Accession Number(s): [id number] cc: Williams Jackson M.D.; JAYME PEREZ The [address] [address] Patient Name: WILDA SEN MRN: [id number] date: 1945 Sex: F Assigned Patient Location: [facility] Current Patient Location: [facility] Accession/Order Number: [id number] Exam Date: 07/05/2024 09:18 Report Date: 07/05/2024 [...] Garay M.D. Signed By:07/05/242321 DD/ 18 TD/TT: Cashier And Waiter/Waitress: Authorizing ProviderResult TypeResult StatusGeneric External Data Provider CLINIS[facility]NC IMAGINGFinal Result documented in this encounter Visit Diagnoses Not on filedocumented in this encounter Additional Health Concerns AssessmentNoted TimePHQ-9 Depression Total Score: 7107/22/2022 2:00 PM EST documented as of this encounter Care Teams Team MemberRelationshipSpecialtyStart DateEnd Date Jayme Perez MD 112 [facility] 100 [place] [address] PCP - GeneralFamily Medicine11/25/22 Jayme Perez MD 112 [facility] 100 [place] [address] PCP - ACO Reach12/05/22 Mick Farmer DO [address] [place] [address] [address] [place] [address] Referring PhysicianOphthalmology08/21/23 Renato Satnacruz MD [address] [place] [address] Referring PhysicianUrolog08/21/23 hCuy Wood MD [address] [facility] Professional building 1 [place] [address] Referring PhysicianRheumatolog08/21/23 Rebeca Emerson, CATTLE TRADER [address] [place], [place] [address] Social WorkerFamily Medicine/documented as of this encounter
--- OUTSIDE RECORDS SUMMARY | 2025-05-20 16:11 | XMS_ITS | Encounter Summary ---
Author Organization [facility] Address [address] [place] [address] Care Team Providers Care Room Attendants Name Role Phone Jayme Parham MD Primary Care Provider [phone] Jayme Parham MD Unavailable [phone] Mick Farmer DO Unavailable [phone] Renato Santacruz MD Unavailable [phone] Chuy Wood MD Unavailable [phone] Reason for Visit * ReasonCommentsMed Refill Encounter Details DateTypeDepartmentCare Team (Latest Contact Info)Irdxguqvzlp19/02/2025Refill [facility] [place] [address] Family Medicine 112 [facility] 100 [place] [address] Jayme Parham MD 112 [facility] 100 [place], [place] [id number] Type 2 diabetes mellitus with stage 3a chronic kidney disease, without long-term current use of insulin (HCC) Social History Tobacco UseTypesPacks/DayYears UsedDateSmoking Tobacco: [...] times a week04/08/2024How often do you attend taoism or voodoo services?Never04/08/2024o you belong to any clubs or organizations such as taoism groups, unions, fraternal or athletic groups, or school groups?No04/08/2024How often do you attend meetings of the clubs or organizations you belong to?Never04/08/2024re you , , , , never , or living with a partner?Mcsuzzu5104/08/2024 AUDIT-CAnswerDate RecordedQ1: How often do you have [...] at all 04/08/2024HQ-2AnswerDate RecordedPatient Health Questionnaire-2 Score0 11/04/2024[facility] [place] of Occupational Health - Occupational Stress QuestionnaireAnswerDate [...] steady place to sleep or slept in [facility] (including now)?No12/11/2022Housing Stability Vital SignAnswerDate RecordedIn the [...] 01/24/2023CommentsNoSex and Gender InformationValueDate RecordedSex Assigned at XqqjoLarikd39/26/2023 1:32 PM EDTLegal KhpFtklzs68/15/2023 6:45 PM EDTGender HnzgqnrnPavips83/26/2023 1:32 PM EDTSexual OrientationNot on file documented as of this encounter Plan of Treatment DateTypeDepartmentCare Team (Latest Contact Info)Cgsactefygv75/10/2025 2:30 PM ESTOffice Visit [facility] [address] Family Medicine 112 [facility] 100 [place] [address] Jayme Parham MD 112 [facility] 100 [place] [address] (Fax) documented as of this encounter Visit Diagnoses Diagnosis Type 2 diabetes mellitus with stage 3a chronic kidney disease, without long-term current use of insulin (HCC) Type 2 diabetes mellitus with diabetic microalbuminuria, without long-term current use of insulin ([facility]) Type 2 diabetes mellitus with stage 3a chronic kidney disease, without long-term current use of insulin ([facility]) Stage 3a chronic kidney disease ([facility]) Microalbuminuria Proteinuria documented in this encounter Additional Health Concerns AssessmentNoted TimePHQ-9 Depression Total Score: 7011/04/2024 1:00 PM EDT documented as of this encounter Care Teams Team MemberRelationshipSpecialtyStart DateEnd Date Jayme Parham MD [address] [address] (Fax) PCP - GeneralFamily Medicine11/25/22 Jayme Parham MD [address] [address] (Fax) PCP - ACO Reach12/05/22 Mick Farmer DO [address] [place] [address] Referring PhysicianOphthalmology08/21/23 Renato Santacruz MD [address] [place] [address] Referring PhysicianUrology2/03/06 Chuy Wodo MD [address] [facility] Professional [address] [place] [address] Referring PhysicianRheumatology2/03/06documented as of this encounter
--- OUTSIDE RECORDS SUMMARY | 2025-05-20 16:11 | XMS_ITS | Clinical Summary ---
Author Organization [facility] Address [address] [place] [address] Phone Care Team Providers Care Funeral Pre Arrangement Specialist Name Role Phone Jayme Parham MD Primary Care Provider Social History Tobacco UseTypesPacks/DayYears UsedDateSmoking Tobacco: Never Assessed CommentsUnknownSex and Gender InformationValueDate RecordedSex Assigned at Not on fileLegal UbkKznthp33/26/2022 1:42 PM ESTGender IdentityNot on fileSexual OrientationNot on file Plan of Treatment Not on file Care Teams Team MemberRelationshipSpecialtyStart DateEnd Date Jayme Parham MD [address] [place] [address] PCP - [facility]11/21/14
--- OUTSIDE RECORDS SUMMARY | 2025-05-20 16:12 | XMS_ITS | CCD ---
Author Organization [facility] Care Team Providers Care Any Commodity Buyer Name Role Phone Astrid Baker Unavailable CAYETANO, [...] Jayme Perez Primary Care Provider MD Eugenia Jackson Attending Provider Lou Glover Unavailable Jayme Perez MD Primary Care Provider [phone] Jayme Perez MD Unavailable MD Jayme Perez Primary Care Provider MD Radames Monteiro Attending Provider Felicia Thornton DO Unavailable Renato Eaton MD Unavailable Radames Monteiro MD Unavailable Jayme Perez MD Primary Care Provider Jayme Perez MD Unavailable [phone] Jayme Perez MD Primary Care Provider Jayme Perez MD Unavailable Lobito Tapia DO Attending Provider FELICIA THORNTON Attending Unavailable CHRIS, JAYME Hazel Attending Unavailable HEMEYER, JAYME Hazel Attending Unavailable HEMEYER, JAYME Hazel Attending Unavailable JOSELYN NARVAEZ Attending Unavailable CHRIS, JAYME Hazel Referring Unavailable CLARA ORLANDO Attending Unavailable HEMEYER, JAYME Hazel Referring Unavailable HEMEYER, JAYME Hazel Attending Unavailable CLARA ORLANDO Attending Unavailable HEMEYER, JAYME Hazel Referring Unavailable CLARA ORLANDO Attending Unavailable JAYME PEREZ Referring Unavailable JAYME PEREZ Attending Unavailable JAYME PEREZ Referring Unavailable JAYME PEREZ Attending Unavailable Jayme Perez MD Primary Care Provider Kristie Meyer Attending Provider Eugenia Jackson MD Attending Provider Eugenia JACKSON Attending Unavailable Eugenia JACKSON Referring Unavailable Eugenia JACKSON Attending Unavailable Eugenia JACKSON Attending Unavailable Lobito Tapia Admitting Unavailable Lobito Tapia Attending Unavailable Jayme Perez Primary Care Unavailable Radames Monteiro Admitting Unavailable Radames Monteiro Attending Unavailable Kristie Hermosillo Attending Unavailable Jayme Perez Primary Care Unavailable Kristie Hermosillo Admitting Unavailable Jayme Perez Primary Care Unavailable Eugenia Jackson Admitting Unavailable Eugenia Jackson Attending Unavailable Idania LAUNDRY SORTER, Rebeca Unavailable Renato Eaton MD Unavailable Radames Monteiro MD Unavailable [phone] Idania LAUNDRY SORTER, Rebeca Unavailable Allergies Allergy ClassificationReported Allergen(s)Allergy TypeDate of OnsetReaction(s) Facility (20 sources)Ciprofloxacin; Translations: [ciprofloxacin]Drug Ggkmzkm56-73-1697 anaphylaxis, Unknown (qualifier value)[facility] (1 source)sulfaSALAzineDrug AllergyHCA [facility] [employer] Other (1 source)CiprofloxacinDrug Ricatkz26-09-0469XqdC[facility] (2 sources)Ketorolac; Translations: [Toradol]Drug Dbfarjy97-70-2425TycC[facility] (2 sources)metroNIDAZOLE; Translations: [MetroGel]Drug Kygbart33-07-3510JwgC[facility] (1 source)NSAIDsDrug allergy (disorder)50-73-0371RjkCleveland Clinic [facility] (2 sources)pioglitazone; Translations: [Actos]Drug Hhavznd12-28-6125WyyC[facility] Clinic [facility] (1 source)Sulfonamides (Antibiotic)Drug allergy (disorder)74-04-1716Kqu [facility] Repository (16 sources)Ketorolac; Translations: [ketorolac]Drug Rtyqytj56-53-2916Capgacu (qualifier value), Nausea (finding)[facility] above:Severe (20 sources)Latex; Translations: [Latex]Drug mfkyxag48-40-8843Qlhzhda of skin AND/OR mucosa (finding)[facility] (20 sources)Non-steroidal anti-inflammatory agent; Translations: [NSAIDs]Drug uiajwrc22-70-2914Lkyjxxf (qualifier value)[facility] (20 sources)pioglitazone; Translations: [pioglitazone]Drug Gbxuxlv09-06-4699 Unknown (qualifier value)[facility] (6 sources)Sulfonamides (Antibiotic); Translations: [sulfa drugs]Drug allergy Unknown (qualifier value)[facility] (20 sources)metroNIDAZOLE; Translations: [Metronidazole]Drug Dilpcpi62-88-7145 [facility] (6 sources)Sulfonamides (Antibiotic); Translations: [Sulfa (Sulfonamide Antibiotics)]Allergy to dsarwjuuc91-85-9265TfpkVbzahghrcOhioHealth [facility] Center (6 sources)NSAIDS (Non-Steroidal Anti-Inflamma; Translations: [NSAIDS (Non- Steroidal Anti-Inflamma]Allergy to nunsqjbes48-64-1579Gtsqilwtimf, Anaphylaxis, rashSt. [facility] (1 source)Non-steroidal anti-inflammatory agentDrug allergyrashNNorth Shore University Hospital [employer] Other (20 sources)Substance with sulfonamide structure and antibacterial mechanism of action (substance)Drug utjpmli61-39-2836zermBtant Coast [employer] Other (20 sources)KetorolacAllergy to -55-3173Bsfajq OnlyKindred Hospital (20 sources)Hydrocodone Bit-Homatrop MbrPropensity to adverse reactions 97-45-4872JvfkjljsvOOYP Healthcare (20 sources)Medical Adhesive RemoverDrug Wjrtemw41-53-9718ABGU Healthcare (1 source)CiprofloxacinDrug Esnoiln12-27-8847GlrparyfxSt. Charles Hospital Repository (1 source)KetorolacDrug Jvwwfpw13-95-5149UkgfwscjySt. Charles Hospital Repository (1 source)pioglitazoneDrug Ufqysym63-85-2335NaejqadvzSt. Charles Hospital Repository Medications Current Medications MedicationDrug Class(es)DatesSig (Normalized)Sig (Original)acarbose 100 mg oral tablet (20 sources)alpha-Glucosidase InhibitorStart: 04-18-2025 End: 34-19-2839lmfjpyrm (Precose) 100 MG tablet Indications: Type 2 diabetes mellitus with stage 3a chronic kidneydisease, without long-term current use of insulin (HCC) Take 1 tablet (100 mg) by mouth in the morning and 1 tablet (100 mg) at noon and 1 tablet (100 mg) in the evening. Take with meals. 90 tablet 05/18/2025 ActiveStart: 08-17-2019 End: 75-48-6364vihruivl (Precose) 100 MG tablet Indications: Type 2 diabetes mellitus with stage 3a chronic kidneydisease, without long-term current use of insulin (HCC) Take 1 tablet (100 mg) by mouth in the morning and 1 tablet (100 mg) at noon and 1 tablet (100 mg) in the evening. Take with meals. 270 tablet 1 10/18/2024 04/16/2025 ActiveStart: 17-55-5393mlwyvite Oral, TID, Refills(s) 0 Start Date: 08/17/19 Status: OrderedAcarbose Activeacetaminophen 325 mg oral tablet (20 sources)Start: 28-75-0049Xwwfkevygwjmk (Tylenol) 325 mg Tablet Active 1000 MG PO Twice daily March 26, 2023 12:00am Complies with drug therapyStart: 15-07-8482irqt 1 mg by mouth every six hoursTylenol Extra Strength 500 mg oral tablet mg tab(s), Oral, q6hr Start Date: 02/03/23 Status: Orderedtake 1 tablet by mouth every six hours as neededacetaminophen (Tylenol) 325 MG tablet Take 325 mg by mouth every 6 (six) hours if needed. 2 tables as needed orally every 6 hours Activeacetaminophen 325 mg / oxyCODONE hydrochloride 5 mg oral tablet (10 sources)Opioid AgonistStart: 08-12-2023 End: 81-78-2972wxeq 1 tablet by mouth every six hoursPercocet 5 mg-325 mg oral tablet 1 tab(s), Oral, q6hr, Refill(s) 0 Start Date: 08/13/23 Status: Ordered [id number] 200 actuat albuterol 0.09 mg/actuat metered dose inhaler (20 sources)beta2-Adrenergic AgonistStart: 07-16-2023 End: 00-24-8173ueoiiybxe HFA 90 mcg/act inhaler Indications: Chronic obstructive pulmonary disease with acute exacerbation (HCC) Inhale 2 puffs in the morning and 2 puffs at noon and 2 puffs in the evening and 2 puffs before bedtime. 18 g 07/16/2023 ActiveStart: 14-99-3085Qriqg: 36-85-2630drjz 2 puff(s) by inhalation every four hours as neededAlbuterol Sulfate HFA 108 (90 Base) MCG/ACT 2 puffs as needed Inhalation every 4 hrs May, Not-Taking/PRNAscorbic Acid / Zinc Sulfate (4 sources)Vitamin CStart: 50-12-5207uthq 1 tablet by mouth once dailyAscorbic Acid-Zinc Sulfate (Vitamin C Plus Zinc) 200-100 mg Tablet Active 1 TAB PO every day at noon March 26, 2023 12:00am Complies with drug therapyStart: 47-50-4757bdxm 1 tablet by mouth once dailyStart: 27-38-4825eiup 1 tablet by mouth once dailyAscorbic Acid-Zinc Sulfate (Vitamin C Plus Zinc) 200-100 mg Tablet Active 1 TAB PO every day at noon March 26, 2023 12:00amaspirin 81 mg oral tablet (5 sources)Platelet Aggregation Inhibitor, Nonsteroidal Anti-inflammatory Drug Start: 65-54-3250uqsl 1 mg by mouth once dailyaspirin 81 mg oral tablet mg tab(s), Oral, Daily, Refills(s) 0 Start Date: 08/17/19 Status: Orderedcalcium citrate 950 mg oral tablet (20 sources)Start: 19-20-8146dzdo 1 tablet by mouth three times dailyCalcium Citrate 200 mg (950 mg) Tablet Active 200 MG PO Three times daily March 26, 2023 12:00am Complies with drug therapyStart: 68-36-9220ymqo 250 mg by mouth three times dailycalcium citrate 250 mg, Oral, TID, Refills(s) 0 Start Date: 08/17/19 Status: OrderedStart: 78-61-1838vixntaf citrate Oral, BID, Refills(s) 0 Start Date: 08/17/19 Status: Orderedtake 1 tablet by mouth three times daily in the morningcalcium citrate 1040 MG tablet Take 250 mg by mouth in the morning and 250 mg in the evening and 250 mg before bedtime. 1 tablet orally three times a day. Activecephalexin 500 mg oral capsule (9 sources)Cephalosporin AntibacterialStart: 46-75-9900huwc 1 capsule by mouth twice dailyStart: 08-12-2023 End: 14-01-0424vanz 1 capsule by mouth in the morning, then take 1 capsule by mouth in the evening, then take 1 capsule by mouth at bedtimecephalexin (Keflex) 500 MG capsule Take 500 mg by mouth in the morning and 500 mg in the evening and 500 mg before bedtime. 08/12/2023 04/15/2024 Discontinued (Therapy completed) cholecalciferol 0.125 mg oral tablet (5 sources)Vitamin DStart: 43-38-9979wpwt 1 tablet by mouth once dailycinnamon bark 500 mg oral capsule (20 sources)Start: 87-13-7387tjnu 1 capsule by mouth twice dailyCinnamon Bark (Cinnamon) 500 mg Capsule Active 1000 MG PO Twice daily March 26, 2023 12:00am Complies with drug therapyCinnamon Preparation (5 sources)Non-Standardized Food Allergenic ExtractStart: 92-04-8274oout 1000 mg by mouth once dailycinnamon 1,000 mg, Oral, Daily Start Date: 09/19/20 Status: OrderedStart: 97-60-7387yuad 1 mg by mouth twice dailycinnamon mg, Oral, BID Start Date: 09/19/20 Status: OrderedCyanocobalamin-Liver Extract (Vitamin B12- Liver) Tablet (5 sources)Start: 88-67-6014tnsc 1 tablet by mouth once dailyCyanocobalamin- Liver Extract (Vitamin X35-Puvnq) Tablet Active 1 TAB PO every day at noon 2022 12:00am Complies with drug therapyStart: 77-43-9938bmgn 1 tablet by mouth once dailyStart: 12-46-0443ibae 1 tablet by mouth once daily Cyanocobalamin-Liver Extract (Vitamin I71-Xdpej) Tablet Active 1 TAB PO every day at 2022 12:00amStart: 95-17-7934bymj 1 tablet by mouth once dailyCyanocobalamin-Liver Extract (Vitamin P23-Sacgw) Tablet Active 1 TAB PO every day at 2022 11:00pmdextromethorphan hydrobromide 1.5 mg/ml / pyrilamine maleate 1.5 mg/ml oral solution (1 source)Uncompetitive C-zzaqwc-V-aspartate Receptor Antagonist, Sigma-1 AgonistStart: 55-95-3074rflb 10 mL by mouth every eight hoursCapron DM 7.5-7.5 MG/5ML 10 mL Orally every 8 hours for 5 days Jul, Activedocusate sodium 100 mg oral capsule (6 sources)take 1 capsule by mouth in the morningdocusate sodium (Colace) 100 MG capsule Take 100 mg by mouth in the morning and 100 mg before bedtime. Active esomeprazole 20 mg delayed release oral tablet (20 sources)Proton Pump InhibitorStart: 50-17-1070nlpf 1 tablet by mouth once dailyEsomeprazole Magnesium 20 mg Tablet,Delayed Release (Dr/Ec) Active 20 MG PO every day at March 26, 2023 12:00am Complies with drug therapyStart: 49-07-7209Mbcuwj 20 mg, Oral, As Directed, Refills(s) 0 Start Date: 08/17/19 Status: OrderedStart: 42-12-9137Hxwqsj Oral, Daily, Refills(s) 0 Start Date: 08/17/19 Status: Orderedtake 1 capsule by mouth once dailyesomeprazole (NexIUM) [address] capsule Take 20 mg by mouth 1 (one) time each day. 1 capsule orally once a day ActiveFerrous Bisglycinate Chelate 28 MG capsule (4 sources)Start: 11-04-2024 End: 30-22-2856aawt 1 capsule by mouth at mealtimeFerrous Bisglycinate Chelate 28 MG capsule Indications: Iron deficiency Take 1 capsule by mouth in the evening. Take with meals 11/04/2024 12/04/2024 Activeferrous sulfate 134 mg oral tablet (5 sources)Start: 59-02-5105Uwbkool Sulfate 27 mg iron Tablet Active 30 MG PO every Friday, , Friday, and Sunday March 26, 2023 12:00am Complies with drug therapyStart: 30-13-9142zzan 30 mg by mouth onceFerrous Sulfate Active 30 MG PO every Friday, , Friday, and Sunday March 26, 2023 12:00am4 ml golimumab 12.5 mg/ml injection (20 sources)Tumor Necrosis Factor BlockerStart: 23-27-1161Faajfjvyz (Simponi Aria) 12.5 mg/mL Solution Active 12.5 MG IV EVERY 8 WEEKS March 26, 2023 12:00am may 13 Complies with drug therapyStart: 95-69-8561Tsxefbg Aria mg/kg, IV, q4wk, Refills(s) 0 Start Date: 08/20/19 Status: Orderedgolimumab (Simponi) 100 MG/ML solution auto-injector Inject 100 mg under the skin every 8 (eight) weeks ActiveInsulin Glargine (2 sources)Insulin AnalogLantus ActivelevoFLOXacin 250 mg oral tablet (9 sources)Quinolone AntimicrobialStart: 02-08-2025 End: 03-83-7918qnho 1 tablet by mouth once dailylevoFLOXacin (Levaquin) 250 MG tablet Indications: Kidney stone on left side TAKE 1 TABLET BY MOUTHDAILY FOR 10 DAYS 10 tablet 02/08/2025 Activemeclizine hydrochloride 12.5 mg oral tablet (20 sources)AntiemeticStart: 12-22-2024 End: 76-89-0543bioq 0.5-1 tablets by mouth three times daily as needed for dizzinessmeclizine (Antivert) 12.5 MG tablet Indications: Vertigo Take 0.5-1 tablets (6.25-12.5 mg) by mouth3 (three) times a day as needed for dizziness for up to 20 days 60 tablet 12/22/2024 02/17/2025 Discontinued (Med list cleanup) metFORMIN hydrochloride 1000 mg oral tablet (20 sources)BiguanideStart: 04-18-2025 End: 40-69-0352ffjl 1 tablet by mouth in the morningmetFORMIN (Glucophage) 1000 MG tablet Indications: Type 2 diabetes mellitus with stage 3a chronic kidney disease, without long-term current use of insulin (HCC) Take 1 tablet (1,000 mg) by mouth in the morning and 1 tablet (1,000 mg) in the evening. Take with meals. 60 tablet 04/18/2025 05/18/2025 ActiveStart: 08-17-2019 End: 43-65-7160sads 1 tablet by mouth in the morningmetFORMIN (Glucophage) 1000 MG tablet Indications: Type 2 diabetes mellitus with stage 3a chronic kidney disease, without long-term current use of insulin (HCC) Take 1 tablet (1,000 mg) by mouth in the morning and 1 tablet (1,000 mg) in the evening. Take with meals. 180 tablet 1 10/18/2024 04/16/2025 ActiveStart: 44-25-2942psalienob Oral, Refills(s) 0 Start Date: 08/17/19 Status: OrderedmetFORMIN HCl Activemethotrexate 2.5 mg/ml oral solution (20 sources)Folate Analog Metabolic InhibitorStart: 01-24-8148zrmy 1.5 mg by mouth every weekMethotrexate 2.5 mg/mL Solution Active 1.5 MG PO every week March 26, 2023 12:00am Friday's Complies with drug therapyStart: 47-38-6765dlxb 1.5 mg by mouth every weekMethotrexate Active 1.5 MG PO every week March 26, 2023 12:00am Friday'sStart: 62-87-3132ergr 5 mg by mouth every weekmethotrexate 5 mg, Oral, qWeek, Refills(s) 0 Start Date: 08/17/19 Status: OrderedStart: 83-33-3144txaaupbrkxhm Refills(s) 0 Start Date: 08/17/19 Status: Orderedinject 0.5 mL by subcutaneous injection every weekMethotrexate 12.5 MG/0.5ML solution prefilled syringe Inject 0.5 mL under the skin 1 (one) time perweek ActiveMethotrexate Sodium ActiveMisc Medication (5 sources)Start: 42-67-2931Eaad Medication See Instructions, Oral Start Date: 09/19/20 Status: OrderedStart: 15-47-8713Lotc Medication ironchlate Start Date: 09/19/20 Status: OrderedMulti Vitamins oral tablet (5 sources)Start: 66-92-2234hroj 1 tablet by mouth once dailyMulti Vitamins oral tablet 1 tab(s), Oral, Daily, Refill(s) 0 Start Date: 09/19/20 Status: Ordered Start: 28-50-7533Nxrpg Vitamins oral tablet Oral, Daily, Refill(s) 0 Start Date: 09/19/20 Status: Orderedondansetron 4 mg disintegrating oral tablet (16 sources)Serotonin-3 Receptor AntagonistStart: 02-08-2025 End: 03-31-3577ddhs 1 tablet by mouth every eight hours for nauseaondansetron ODT (Zofran-ODT) 4 MG disintegrating tablet Indications: Kidney stone on left side Take1 tablet (4 mg) by mouth every 8 (eight) hours if needed for nausea or vomiting for up to 10 days 30 tablet 02/08/2025 ActiveStart: 08-13-2023 ondansetron 4 mg Tab mg tab(s), Oral, As Directed, Refills(s) 0 Start Date: 08/13/23 Status: OrderedStart: 08-12-2023 End: 49-06-6266wwzj 1 tablet by mouth every eight hours as needed for nausea ondansetron ODT (Zofran-ODT) 4 MG disintegrating tablet Take 4 mg by mouth every 8 (eight) hours ifneeded for nausea 08/12/2023 04/15/2024 Discontinued (Therapy completed)oxybutynin chloride 5 mg oral tablet (6 sources)Cholinergic Muscarinic Antagonistoxybutynin (Ditropan) 5 MG tablet Take 5 mg by mouth as needed in the morning and 5 mg as needed atnoon and 5 mg as needed in the evening (bladder spasms). ActiveoxyCODONE hydrochloride 5 mg oral capsule (5 sources)Opioid AgonistStart: 02-08-2025 End: 00-49-6609vxaa 1 capsule by mouth every eight hoursoxyCODONE (Oxy-IR) 5 MG immediate release capsule Indications: Kidney stone on left side Take 1 capsule (5 mg) by mouth every 8 (eight) hours for 7 days 21 capsule 02/08/2025 02/15/2025 ActivepredniSONE 2.5 mg oral tablet (20 sources)Start: 01-75-8402chcl 1 tablet by mouth once daily at bedtime Prednisone 2.5 mg Tablet Active 2.5 MG PO Daily at bedtime March 26, 2023 12:00am Complies with drug therapyStart: 06-06-4246rvef 5 mg by mouth once daily predniSONE 5 mg, Oral, Daily, Refills(s) 0 Start Date: 08/17/19 Status: Ordered Start: 49-01-9236yaswknVEYL Oral, Daily, Refills(s) 0 Start Date: 08/17/19 Status: Orderedtake 2.5 mg by mouth once dailypredniSONE (Deltasone) 5 MG tablet Take 2.5 mg by mouth Daily ActivepredniSONE Not-Taking/PRNSpacer/Aero-Holding Chambers (BreatheRite Leonor Spacer Adult) [facility] [place] (20 sources)Start: 77-04-0765Wpehok/Aero-Holding Chambers (BreatheRite Leonor Spacer Adult) [facility] [place] Indications: Chronic obstructive pulmonary disease with acute exacerbation (HCC) 2 puffs 4 (four) times a day as needed (sob and cough) 1 each 07/16/2023 ActiveStart: 13-31-0457Oijbye/Aero-Holding Chambers (BreatheRite Leonor Spacer Adult) [facility] [place] Indications: Chronic obstructive pulmonary disease with acute exacerbation (CMS/HCC) 2 puffs 4 (four) times a day as needed (sob and cough) 1 each 07/16/2023 ActiveStart: 76-45-4304Yrvgsl/Aero-Holding Chambers (BreatheRite Leonor Spacer Adult) [facility] [place] Indications: Chronic obstructive pulmonary disease with acute exacerbation (CMS/HCC) 2 puffs 4 (four) times a day as needed (sob and c ough) 1 each 0 07/16/2023 Activespironolactone 25 mg oral tablet (9 sources)Aldosterone AntagonistStart: 01-06-2025 End: 34-69-4944drdx 1 tablet by mouth once dailyspironolactone (Aldactone) 25 MG tablet Indications: Vertigo Take 1 tablet (25 mg) by mouth Daily for 10 days 10 tablet 01/06/2025 02/17/2025 Discontinued (Med list cleanup)tamsulosin hydrochloride 0.4 mg oral capsule (20 sources)alpha-Adrenergic BlockerStart: 08-13-2023 End: 29-24-4129irvd 1 mg by mouth once dailytamsulosin 0.4 mg Cap mg cap(s), Oral, Daily, X 7 day(s), Refills(s) 0 Start Date: 08/13/23 Stop Date: 08/20/23 Status: OrderedStart: 08-12-2023 End: 97-55-6667avxi 1 capsule by mouth every twenty-four hours in the morning tamsulosin (Flomax) 0.4 MG 24 hr capsule Take 0.4 mg by mouth in the morning. 08/12/2023 11/04/2024Discontinued (Med list cleanup)traZODone hydrochloride 50 mg oral tablet (20 sources)Serotonin Reuptake InhibitorStart: 21-76-6183twpVPBzzt (Desyrel) 50 MG tablet Indications: Insomnia Titrate nightly from 1/2 tablet up to 2 tablets by 1/2 tablet increments as tolerated 60 tablet 04/15/2024 Activevitamin B12 (20 sources)Vitamin J65Dylfj: 91-68-2059rgaj 3000 mg by mouth once dailyVitamin B12 3,000 mg, Oral, Daily, Refills(s) 0 Start Date: 08/17/19 Status: OrderedStart: 69-06-9406Btjqers B12 Refills(s) 0 Start Date: 08/17/19 Status: Orderedtake 1 tablet under the tongue once dailyCyanocobalamin (Vitamin B12) [address] 3,000 mcg under the tongue 1 (one) time each day. Active Vitamin D3 (5 sources)Start: 97-18-7395Sxktptf D3 1,000 unit(s), Daily, Refills(s) 0 Start Date: 08/17/19 Status: OrderedStart: 74-79-6379Xivjimn D3 Daily, Refills(s) 0 Start Date: 08/17/19 Status: Orderedwarfarin sodium 4 mg oral tablet (20 sources)Vitamin K AntagonistStart: 56-58-2551tcjm 1 tablet by mouth at bedtimewarfarin (Coumadin) 4 MG tablet Indications: 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 (HCC) Take 1 tablet (4 mg) by mouth at bedtime 11/24/2024 Active Start: 08-18-2023 End: 64-64-4132eocjmkan (Coumadin) 2.5 MG tablet Indications: 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 (CMS/HCC) Take 1 tablet in the evening for a total of 3.5mg 90 tablet 1 08/18/2023 08/17/2024 ActiveStart: 08-18-2023 End: 68-30-0493rmwj 1 tablet by mouth once daily in the eveningwarfarin (Coumadin) 1 MG tablet Indications: 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 (CMS/HCC) TAKE ONE TABLET BY MOUTH EVERY EVENING FOR A TOTAL OF 5MG 90 tablet 1 04/21/2024 07/01/2024 Discontinued (Dose adjustment)Start: 02-03-2023 End: 01-23-9561ajle 3 mg by mouth once dailywarfarin 3 mg, Oral, Daily Start Date: 02/03/23 Status: OrderedStart: 10-66-3683jmlgnnrw Oral, Daily Start Date: 02/03/23 Status: OrderedStart: 10-02-2022 End: 31-86-0745jmjp 1 tablet by mouth once daily at bedtimeWarfarin 4 mg Tablet Active 4 MG PO Daily at bedtime March 26, 2023 12:00am Complies with drug therapyZinc Sulfate-Vitamin C (Vitamin C Plus Zinc) 200-100 mg Tablet (1 source)Start: 83-97-0404dxdk 1 tablet by mouth once dailyZinc Sulfate-Vitamin C (Vitamin C Plus Zinc) 200-100 mg Tablet Active 1 TAB PO every day at noon [facility]2022 11:00pm Completed/Discontinued Medications MedicationDrug Class(es)DatesSig (Normalized)Sig (Original)azithromycin 250 mg oral tablet (2 sources)Macrolide AntimicrobialStart: 55-56-4805Jykblsshgtia 250 MG 2 tablets on the first day, then 1 tablet daily for 4 days Orally Once a day for 5 day(s) May, Not-Taking/PRNStart: 54-89-0790iymgezEJYBJEOnbwdx (3 sources)CorticosteroidStart: 07-25-2023 End: 77-04-1129gtcdtzCAKMMPPcthgm (Medrol Dospak) 4 MG tabletsStart: 07-25-2023 methylPREDNISolone 4 MG as directed Orally for 6 Jul, Active Problems Active Problems Problem ClassificationProblemDateDocumented DateEpisodic/ChronicAbdominal pain (9 sources)Abdominal pain; Translations: [Unspecified abdominal pain]Onset: [id number]ph/social admission (2 sources)Advance directive discussed with patient; Translations: [Other specified counseling]38-36-1784QflbtuxnYvwjvny disorders (5 sources)Xhujixl03-65-7485ZfzspnkVhfksisu of urinary tract (18 sources)Kidney stone; Translations: [Calculus of kidney]Onset: 03-20-2023 EpisodicCancer of uterus (5 sources)History of malignant neoplasm of uterine ziwd79-89-3257Ibnocqrd Cardiac dysrhythmias (20 sources)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; Translations: [Atrial fibrillation] Onset: 07-14-8753HhadsbfMafgdxbg (20 sources)Bilateral age-related nuclear cataracts; Translations: [Age-related nuclear cataract, bilateral]Onset: 05-19-2023 Resolved: [id number] kidney disease (20 sources)Chronic kidney disease stage 3A ; Translations: [Stage 3a chronic kidney disease (HCC) (CMS/HCC)]Onset: 065159-61-6618JynluptEoapukesyd associated with dizziness or vertigo (10 sources)Vertigo; Translations: [Dizziness and giddiness]23-70-1131Nivvyvqx Congestive heart failure; nonhypertensive (20 sources)Chronic diastolic (congestive) heart failure; Translations: [Chronic diastolic heart failure]Onset: 459535-76-8176NasgqmbPzjnwoda mellitus with complications (20 sources)Type 2 diabetes mellitus with diabetic chronic kidney disease; Translations: [Type 2 diabetes mellitus]Onset: 88-43-7041BthgpdrXappfpkkfxtsjb and diverticulitis (20 sources)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; Translations: [Diverticulosis of large intestine without perforation or abscess without bleeding]Onset: 351598-36-3305OjjrhvsGfysknflli disorders (20 sources)Gastroesophageal reflux disease without esophagitis; Translations: [Gastro-esophageal reflux disease without esophagitis]Onset: 12-12-2022 81-04-3660DluubcpHpidchmr (20 sources)Preglaucoma, unspecified, bilateral; Translations: [Preglaucoma, unspecified]Onset: 040649-80-4852HrjoyuqUkhry valve disorders (20 sources)Nonrheumatic aortic (valve) stenosis; Translations: [Aortic valve disorders]Onset: 070472-37-0955JfnrqadVllmbrwi disorders (20 sources)Immunosuppression; Translations: [Immunodeficiency, unspecified] Onset: 517796-70-2545FrxjgajUfqtrnf and fatigue (2 sources)Fatigue; Translations: [Chronic fatigue, unspecified]04-15-2024 ChronicMenopausal disorders (20 sources)Disorder associated with menstruation AND/OR menopause; Translations: [Menopausal and female climacteric states]Onset: 12-12-2022 00-65-8079IgpmebcGtjo disorders (5 sources)Depressive orzvftsy76-68-5964PgncvdgNgmcbkjkgzb deficiencies (20 sources)Vitamin D deficiency; Translations: [Vitamin D deficiency, unspecified]Onset: 760628-66-8625NrmelxjZphjjzzpyfck (20 sources)Osteoporosis; Translations: [Age-related osteoporosis without current pathological fracture]Onset: 802409-24-2714ZwrzrarJparc aftercare (1 source)intermediate project manager (current) use of anticoagulants; Translations: [HOSPICE PHYSICIAN CURRNT USE ANTICOAGULANTS]Onset: 30-76-9043AgliputrPlxqk aftercare (5 sources)Encounter for therapeutic drug level monitoring; Translations: [ENC THERAPEUTC DRUG LEVL MONITORING]Onset: 66-84-8316HobfvcplTjczj aftercare (1 source)Other intermodal dispatcher (current) drug therapy; Translations: [OTH LONG-TERM CURRENT DRUG THERAPY]Onset: 69-84-5810MxlskuioNheal aftercare (2 sources)Post-discharge follow-up; Translations: [Encounter for follow-up examination after completed treatment for conditions other than malignant neoplasm]11-16-9535UjlegkymJybug and ill-defined heart disease (4 sources)Cardiomegaly; Translations: [CARDIOMEGALY]Onset: 31-34-9653Gacdobu Other and ill-defined heart disease (20 sources)Ventricular hypertrophy ; Translations: [Cardiomegaly]Onset: 186254-64-5265PihymtxUoyqe diseases of kidney and ureters (2 sources)Urinary tract obstruction; Translations: [Hydronephrosis with renal and ureteral calculous obstruction]Onset: 63-63-2006OifvbdjgIljpm diseases of kidney and ureters (1 source)Hydronephrosis with renal and ureteral calculous obstruction; Translations: [Hydronephrosis with renal and ureteral calculous obstruction] Onset: 38-78-5302NyywgqfyUufur endocrine disorders (1 source)Disorder of adrenal gland; Translations: [Disorder of adrenal gland, unspecified]Onset: 46-66-3288MkaeorlWdpve gastrointestinal disorders (1 source)Adrenal flrf01-23-4476MkoviipoRgfjj inflammatory condition of skin (5 sources)Other psoriatic arthropathy; Translations: [OTHER PSORIATIC ARTHROPATHY]Onset: 01-17-5223MzvuuisYsffx inflammatory condition of skin (20 sources)Psoriatic arthritis; Translations: [Arthropathic psoriasis, unspecified]Onset: 779728-25-1725OdgbmupQtrvp nutritional; endocrine; and metabolic disorders (5 sources)Body mass index 25-29 - -52-2426BgsjswhkMkaiv nutritional; endocrine; and metabolic disorders (2 sources)Unexplained weight loss ; Translations: [Abnormal weight loss] 98-36-8464VtgfasmpNojae screening for suspected conditions (not mental disorders or infectious disease) (6 sources)Patient encounter status; Translations: [Encounter for screening for other disorder]20-60-5301YvpyzexcAwiqeypl codes; unclassified (2 sources)Sleep dysfunction with arousal disturbance; Translations: [Other sleep disorders]46-13-1145QhnygjjDbqrbika codes; unclassified (5 sources)H/O: anticoagulant tquyrae20-40-5991JhiwxdduAowbkjdkhwz; intervertebral disc disorders; other back problems (20 sources)Degeneration of lumbar intervertebral disc; Translations: [Other intervertebral disc degeneration, lumbar region]Onset: 326929-65-4024 ChronicUnclassified (5 sources)Drug therapy pqjelbm76-29-4555Pkuzvnjhosyj (3 sources)Obstructive wgitefarjrnaws06-44-1217Ccfcoermjqkh (1 source) I did send a prescription to your pharmacy for an antibiotic. The plan to be for a 6-month follow-up with a repeat abdominal x-ray. You may resume your blood thinners within a couple days. Have a great day.Unclassified (1 source)Fluids to keep the urine clear. I was able to get up into the ureter, laser and remove the remaining stone fragments. I did not replace the stent. Sometimes you can have some mild left flank pain for 24 to 36 hours simply due to the manipulation of going up into the ureter.Viral infection (1 source)Other specified viral diseasesEpisodic Past or Other Problems Problem ClassificationProblemDateDocumented DateEpisodic/ChronicDiabetes mellitus without complication (20 sources)Diabetes mellitus; Translations: [Type 1 diabetes mellitus without complication]Onset: 05-19-2023 Resolved: 373103-31-9704WsafcdcWnukuqlvhefcz symptoms and ill-defined conditions (20 sources)Increased frequency of urination; Translations: [Nocturia]Onset: 998192-53-3473VueltcomZghva valve disorders (20 sources)Cardiac murmur, unspecified; Translations: [Heart murmur]Onset: 577854-03-9044IhawzfbsWldsvjgkicleu and screening for infectious disease (1 source)Contact with and (suspected) exposure to other viral communicable diseasesOnset: 05-21-2021 Resolved: 79-44-5897YanxyzbmBvrxoatramkm; infection of eye (except that caused by tuberculosis or sexually transmitteddisease) (20 sources)Blepharitis of upper and lower eyelids of bilateral eyes; Translations: [Unspecified blepharitis right eye, upper and lower eyelids]Onset: 05-19-2023 Resolved: 754050-98-0489TyxkwkfuOitl disorders (20 sources)Mood disordersOnset: 05-22-2023 Resolved: 658874-13-1526Gnsusnfgbeq deficiencies (20 sources)Iron deficiency; Translations: [Iron deficiency]Onset: 12-12-2022 94-65-2290FnakyptkEpwud aftercare (1 source)intermediate project manager (current) use of oral hypoglycemic drugs; Translations: [LONG-TERM USE ORAL HYPOGLYCEMIC DX]Onset: 85-67-9323PgydwyppXnpda aftercare (1 source)intermediate project manager (current) use of insulin; Translations: [HOSPICE PHYSICIAN CURRENT USE OF INSULIN]Onset: 56-90-6859DarwlopjLxaii aftercare (20 sources)Long-term current use of anticoagulant; Translations: [intermediate project manager (current) use of anticoagulants]Onset: 61-75-2697ZespmdttWsajm bone disease and musculoskeletal deformities (20 sources)Osteopenia; Translations: [Other specified disorders of bone density and structure, unspecified site]Onset: 660948-29-0874FolumjxdFoepo connective tissue disease (4 sources)Pain in left foot; Translations: [PAIN IN LEFT FOOT]Onset: 02-20-2022 EpisodicOther eye disorders (20 sources)Dry eyes; Translations: [Dry eye syndrome of bilateral lacrimal glands]Onset: 293817-97-5438FsiwynqkGdbcd nutritional; endocrine; and metabolic disorders (20 sources)Overweight; Translations: [Overweight]Onset: 12-12-2022 Resolved: 249764-79-9497CrjaezfxBzjdhfmzq (except that caused by tuberculosis or sexually transmitted disease) (1 source)Pneumonia, unspecified organismOnset: 05-21-2021 Resolved: 24-33-2354AvrkgmzoNetrmjls codes; unclassified (20 sources)Body mass index 20-24 - normal; Translations: [Body mass index (BMI) 24.0-24.9, adult]Onset: 976223-35-5721IuqttixzMtbvernh codes; unclassified (20 sources)Sleep disorder; Translations: [Sleep disorder, unspecified]Onset: 195364-89-4605LyfclcigTmeutljbz and history of mental health and substance abuse codes (20 sources)Ex-smoker; Translations: [Personal history of nicotine dependence] Onset: 03-27-2017 Resolved: 477482-19-5889TiibofocXqruogddbssy (1 source)Unclassified (1 source)Contact with and (suspected) exposure to covid-19 Z20.822Viral infection (1 source)COVID-19Onset: 05-21-2021 Resolved: 05-21-2021 Results Test NameValueInterpretationReference RangeFacilityMLR HEMOGLOBIN A1Con 20-07-8275Mohbtne [Mass/Vol]137 mg/dLKindred HospitalHbA1c (Bld) [Mass fraction] 6.4 %High4.5 - 6.2 %[facility] HealthcareComment on above:ADA RECOMMENDED LIMIT 4.0 - 6.0 ADA THERAPEUTIC TARGET < 7.0 ACTION SUGGESTED > 7.0 Interpretation and review of laboratory resultsAbnoSurgical Specialty Hospital-Coordinated HlthCLINISYNC [facility] PROTHROMBIN TIME INR W/O COUMon 63-09-3984Nhigchjmgtowyx and review of laboratory resultsAbnoSurgical Specialty Hospital-Coordinated HlthPT Coag (PPP) [Time]19.6 [facility] INR1.98NOWA HealthcareComment on above:DESIRED INR: 2.0-3.0 CONDITIONS NOT LISTED BELOW 2.5-3.5 FOR PROSTHETIC HEART VALVE REPLACEMENT 2.5-3.5 RECURRENT THROMBOSIS [facility]IN[facility]YReg[facility] PROTHROMBIN TIME INR W/O COUMon 03-08-2025 Interpretation and review of laboratory resultsAbnoSurgical Specialty Hospital-Coordinated HlthPT Coag (PPP) [Time]27.8 [facility] INR2.92NOWA HealthcareComment on above: DESIRED INR: 2.0-3.0 CONDITIONS NOT LISTED BELOW 2.5-3.5 FOR PROSTHETIC HEART VALVE REPLACEMENT 2.5-3.5 RECURRENT [facility]ROMBOSIS [facility] blood glucose measurement by glucometer (mass/volume)Ordered By: Eugenia Jackson on 52-23-5001Nrpomdk [Mass/Vol]108 mg/dL [facility] HospitalComment on above:Random Glucose Reference Range is dependent on time and content of last meal. Glucose of more than 200 mg/dL in a nonstressed, ambulatory subject supports the diagnosis of Diabetes Mellitus.Result Comment: Random Glucose Reference Range is dependent on time and content of last meal. Glucose of more than 200 mg/dL in a nonstressed, ambulatory subject supports the diagnosis of Diabetes Mellitus.Performed By: #### GLULS #### Point of Care testing ,Glucose Poct Glucometerson 49-70-9474Sldntqh3Emb5: Cleaned [facility] Physician GroupComment on above:Result Comment: PERFORMED BY: [place] [id number] PATHOLOGIST CONTROLLER MECHANIC IZABEL CHI M.D.Performed By: #### GLULS #### Point of Care testing ,INR in Platelet poor plasma by Coagulation assayOrdered By: BLANCA SIM on 37-08-0935GQQ Coag (PPP) [Relative time]1.0 {INR}[facility] HospitalComment on above:INR Therapeutic Range A) Pre- and Peroperative OAT started two weeks before surgery. NOT HIP SURGERY: 1.5 - 2.5 HIP SURGERY: 2 - 3B) Primary and secondary prevention of venous THROMBOSIS: 2 - 3C) Active venous thrombosis, pulmonary embolismand prevention of recurrent venous thrombosis: 2 - 3D) Prevention of arterial thromboembolismincluding patients with mechanical heart valves: 3 - 4.5Result Comment: INR Therapeutic Range A) Pre- and [...] patients with mechanical heart valves: 3 - 4.5Performed By: #### PTT, PT #### [place] [id number] Edwin 02-14-2025L Specimen: [id number] Received: 02/14/25 Status: JET Hurd Num: [id number] Spec Type: Surgical Subm Dr: Eugenia Jackson MD Tissues: A Gross Only (LEFT URETER STONE) Procedures: Level 1 Gross Age/ Patient Sex Location Account Attending Physician Wilda Sen 79/F [place] [id number] Eugenia Jackson MD SPEC NUM: [id number] RECD: 02/14/25 STATUS: JET HURD NUM: [id number] LEONOR: 02/14/25-[address]: Eugenia Jackson MD ENTERED: 02/14/[address]: SORAIDA TYPE: Surgical DEPT: S ENTERED BY: [id number] RECV BY: [id number] ORDERED: Level 1 Gross ORDERED: Level 1 Gross Pathological Diagnosis Left ureteral stone, removal: - Fragments of calculus. Clinical Information Left kidney stones Gross Description Received fresh labeled with the patients name, date of , and left ureter stone are six escobedo-chaudhry, granular, 0.1 to 0.3 cm in greatest dimension calculi. The specimen is sent to [facility] for chemical analysis. GROSS ONLY-G Microscopic Description Gross examination only. CPT Codes 90546 Specimen: [id number] Received: 02/14/25 Status: JET Hurd Num: [id number] Spec Type: Surgical Subm Dr: Eugenia Jackson MD Tissues: A Gross Only (LEFT URETER STONE) Procedures: Level 1 Gross Patient: Wilda Sen [id number] (Continued) Signed (signature on file) Mikel Quiros MD 02/15/25 1034Normal [facility] Physician GroupNo Panel InformationOrdered By: Eugenia Jackson on 90-99-3245Wyfsfye Glucose CommentGlu2: cleaned [facility] HospitalPartial Thromboplastin Timeon 85-41-5338kREN Coag (Bld) [Time]26.6 sNormal 25.1-36.5[facility] Physician GroupComment on above:Result Comment: A hematocrit value greater than 55% may lead to inaccurate results in coagulation testing. Patients having hematocrit values >55% require a special collection tube for coagulation studies. Please contact the laboratory at [phone] for redraw instructions. PERFORMED BY: [address] [place] [address] PATHOLOGIST CONTROLLER MECHANIC IZABEL CHI M.D.Performed By: #### PTT, PT #### [facility] [address] [place] [address] USAProthrombin time (PT)Ordered By: BLANCA SIM on 87-32-9861MG Coag (PPP) [Time]11.6 sNormal9.0-12.9St. [facility] HospitalComment on above:A hematocrit value greater than 55% may lead to inaccurate results in coagulation testing. Patientshaving hematocrit values >55% require a special collection tube for coagulation studies. Please contact the laboratory at [phone] for redraw instructions.Result Comment: A hematocrit value greater than 55% may lead to inaccurate results in coagulation testing. Patients having hematocrit values >55% require a special collection tube for coagulation studies. Please contact the laboratory at [phone] for redraw instructions.Performed By: #### PTT, PT #### [address] [address] USAX-ray reportOrdered By: Kevan Zhou on 20-70-2973Vogsy reportMAGRUDER HOSPITAL Main [address] [address] XRay Report Signed Patient: Wilda Sen MR#: [id number] : 1945 Acct:[id number] Age/Sex: 79 / F ADM Date: 5 Loc: [place] Room: Type: [facility] Attending Dr: Eugenia Jackson MD Copies to: Eugenia Jackson MD~ Ordering Provider: Eugenia Jackson MD Date of Service: 02/14/25 XR/XR KUB: [...] 12:37 PM Dictation Location: RADIO-PC-23 Transcribed By: [facility] 02/14/25 123 Dictated By: Kevan Zhou Jr, DO 02/14/25 1235 Signed By: 02/14/25 [facility] Charles HospitalXR [facility] 99-20-5763VK [place] [id number] XRay Report Signed Patient: Wilda Sen MR#: [id number] 8 : 1945 Acct:[id number] Age/Sex: 79 / F ADM Date: 02/14/25 Loc: [place] Room: Type: [facility] Attending Dr: Eugenia Jackson MD Copies to: Eugenia Jackson MD Ordering Provider: Eugenia Jackson MD Date of Service: 02/14/25 XR/XR KUB: STENT REMOVAL Intraoperative fluoroscopy INDICATION: Kidney stones, left stent removal TECHNIQUE: 2 mGy XR/XR KUB Findings and impression: Intraoperative images demonstrates placement of guidewire and removal of the left ureteral stent Impression dictated by: Tavon Young M.D. 02/14/2025 9:02 PM Dictation Location: RADIO-PC-29 Transcribed By: [facility] 02/14/252101 Dictated By: Tavon Young MD 02/14/252099 Signed By: 02/14/252101[facility] Physician GroupXR [address] [address] XRay Report Signed Patient: Wilda Sen MR#: [id number] 8 : 1945 Acct:[id number] Age/Sex: 79 / F ADM Date: 02/14/25 Loc: [place] Room: Type: [facility] Attending Dr: Eugenia Jackson MD Copies to: Eugenia Jackson MD Ordering Provider: Eugenia Jackson MD Date of Service: 02/14/25 XR/XR KUB: [...] Jr., D.O. 02/14/2025 12:37 PM Dictation Location: [place] [address] Transcribed By: [facility] 02/14/25 1237 Dictated By: Kevan Zhou Jr, DO 02/14/25 1235 Signed By: 02/14/25 1237[facility] Physician GroupaPTT in Platelet poor plasma by Coagulation assayOrdered By: BLANCA SIM on 48-19-4762zQKS Coag (PPP) [Time] 26.6 s25.1-36.5FOhio State Health SystemComment on above:A hematocrit value greater than 55% may lead to inaccurate results in coagulation testing. Patientshaving hematocrit values >55% require a special collection tube for coagulation studies. Please contact the laboratory at [phone] for redraw instructions.ECG 12 lead ECGon 54-14-3616XIV 12 lead ECGMAGRUDER [place] [address] Electrocardiograph Report Signed Patient: Wilda Sen MR#: [id number] 8 : 1945 Acct:[id number] Age/Sex: 79 / F ADM Date: 02/11/25 Loc: Room: Type: [facility] Attending Dr: Kristie MCFARLAND Ordering Provider: [...] axis shifted right Confirmed by Dez Chavez ([id number]) on 02/12/2025 3:51:55 PM Referred By: Electronically Signed By: Dez Chavez Transcribed By: MUS Signed By Dez Chavez MD 02/12/[address] [place] [address] Physician GroupUrine Cultureon 02-04-2025 Bacteria identified Cx Nom (U)ORGANISM: Enterobacter cloacae complex (O:ENTCLOCPLX) [place] Count 25,000 Aerobic KIKA Charge (NMIC56) SUSCEPTIBILITY ORGANISM: O:ENTCLOCPLX ANTIBIOTIC INTERPRETATION KIKA Amikacin S <16 Aztreonam I <4 Cefepime S <2 Ceftazidime I 8 Ceftriaxone I <1 Cefuroxime R >16 Ciprofloxacin S <0.25 Ertapenem S <0.5 Gentamicin S <2 Levofloxacin S <0.5 Meropenem S <1 Meropenem/Vaborbactam S <2 Nitrofurantoin S <32 Piperacillin/Tazobactam I <8 Tetracycline S <4 Tigecycline S <2 Tobramycin S <2 Trimethoprim/Sulfamethoxazole S <0.5 S = SUSCEPTIBLE I = [...] RESISTANT TO ALL B-LACTAM DRUGS. PERFORMED BY: [facility] [address] [place] [address] PATHOLOGIST CONTROLLER MECHANIC IZABEL CHI M.D.[facility] Physician GroupComment on above: Performed By: #### CUU #### [place] [address] USAUrine cultureOrdered By: Lobito Tapia on 02-04-2025 Bacteria identified Cx Nom (U)Enterobacter cloacae complexAbAvita Health System Ontario HospitalXR ABDOMEN 1Von 03-49-1587[place] [address] XRay Report Signed Patient: WILDA SEN MR#: [id number] : 1945 Acct:[id number] Age/Sex: 79 / F ADM Date: 02/02/25 Loc: RAD Attending Dr: Eugenia Jackson M.D. Ordering Physician: Eugenia Jackson M.D. Date of Service: 02/02/25 Procedure(s): XR abdomen 1V Accession Number(s): [id number] cc: Eugenia Jackson M.D.; JAYME PEREZ [place] [address] Patient Name: WILDA SEN MRN: [id number] date: 1945 Sex: F Assigned Patient Location: [facility] Current Patient Location: [facility] Accession/Order Number: [id number] Exam Date: 02/02/2025 10:29 Report Date: 02/02/2025 10:30 At the request of: EUGENIA JACKSON MD Procedure: XR abdomen 1V KUB: [...] Jr., D.O. 02/02/2025 10:30 AM Dictation Location: [place] [address] Electronically authenticated by: [id number] Y Date: 02/02/2025 10:30 Dictated By: Kevan Zhou M.D. Signed By: 02/02/25 1033 DD/ 1030 TD/TT: Adult Care Manager:TBHRadiology, Radiologist, - 02/02/2025 [place] [address] XRay Report Signed Patient: WILDA SEN MR#: [id number] : 1945 Acct:[id number] Age/Sex: 79 / F ADM Date: 02/02/25 Loc: RAD Attending Dr: Eugenia Jackson M.D. Ordering Physician: Eugenia Jackson M.D. Date of Service: 02/02/25 Procedure(s): XR abdomen 1V Accession Number(s): [id number] cc: Eugenia Jackson M.D.; JAYME PEREZ [place] [address] Patient Name: WILDA SEN MRN: [id number] date: 1945 Sex: F Assigned Patient Location: [facility] Current Patient Location: [facility] Accession/Order Number: [id number] Exam Date: 02/02/2025 10:29 Report Date: 02/02/2025 10:30 At the request of: EUGENIA JACKSON MD Procedure: XR abdomen 1V KUB: [...] Jr., D.O. 02/02/2025 10:30 AM Dictation Location: [place] [address] Electronically authenticated by: [id number] Y Date: 02/02/2025 10:30 Dictated By: Kevan Zhou M.D. Signed By: 02/02/25 1033 DD/ 1030 TD/TT: Adult Care Manager: YESSI HealthcareRadiology Study observation (narrative)NOM HealthcareXR ABDOMEN 1VOrdered By: Radiologist Radiology on 31-72-1871CXVM Healthcare Work Phone: all CBC WITH AUTO DIFFon 67-33-8662SVTUCLHQC ABSOLUTE AUTO0.1NOMS HealthcareBasophils/100 WBC (Bld)0.7 %0.2 - 2.0 %NOM[facility] Healthcare Eosinophils/100 WBC (Bld)1.9 %0.9 - 7.0 %NOM HealthcareErythrocyte distribution width (RBC) [Ratio]14.5 %11.0 - 15.0 %NOM HealthcareHematocrit (Bld) [Volume fraction]37 %36.0 - 48.0 %NOM HealthcareHemoglobin (Bld) [Mass/Vol]12 g/dL12.0 - 16.0 g/dLNOMercy Hospital WashingtonIMMATURE GRANULOCYTES ABS AUTO0.03NOMS Healthcare Immature granulocytes/100 WBC (Bld)0.4 %0.0 - 0.5 %[facility] HealthcareInterpretation and review of laboratory resultsAbnormalNOWA HealthcareLYMPHOCYTES ABSOLUTE AUTO2.2NOMS HealthcareLymphocytes/100 WBC (Bld)30.9 %20.5 - 60.0 %NOMSaint John'S Breech Regional Medical CenterMCH (RBC) [Entitic mass]31.3 pg26.7 - 34.0 pgNOMercy Hospital WashingtonMCHC (RBC) [Mass/Vol]32.4 g/dL29.9 - 35.2 g/dLNOMercy Hospital WashingtonMCV (RBC) [Entitic vol]96.4 fL 81.0 - 99.0 fLNOWA HealthcareMONOCYTES ABSOLUTE AUTO0.6NOMS Healthcare Monocytes/100 WBC (Bld)8.3 %1.7 - 12.0 %NOM HealthcareNEUTROPHILS ABSOLUTE AUTO 4.1NOMS HealthcareNeutrophils/100 WBC (Bld)57.8 %43.0 - 75.0 %[facility] Healthcare Platelet mean volume (Bld) [Entitic vol]8.9 fLLow9.5 - 13.5 fLNOMS [facility] HospitalTB EO #0.1NOMS HealthcareTB [id number] [facility] RBC3.84LowNOMS [facility] HospitalTB [id number] HealthcareCLINISYNCNSAINT FRANCIS HOSPITAL [facility]OU[facility]ULSA HealthcareMR BRAIN W AND WO CONTRAST (IACS)on 54-34-3235DL BRAIN W AND WO CONTRAST (IACS)HISTORY: Vertigo. Unsteady gait. TECHNIQUE: IAC brain MRI [...] appear to be within normal limits on thehigh resolution 3D sequence. No significant mass effect. [...] suspicious enhancement. ELECTRONICALLY SIGNED BY: Noé Elizondo MDNormalNot AvailableNOVANT HEALTH PROTHROMBIN TIME INR W/O COUMon 93-10-5244Xvrnipswbwspda and review of laboratory resultsAbnormalNOMS HealthcarePT Coag (PPP) [Time]21.7 sHighNOMS [facility] INR2.22NOMS HealthcareComment on above:DESIRED INR: 2.0-3.0 CONDITIONS NOT LISTED BELOW 2.5-3.5 FOR PROSTHETIC HEART VALVE REPLACEMENT 2.5-3.5 RECURRENT THROMBOSIS CLINBig [facility] PROTHROMBIN TIME INR W/O COUMon 12-08-2024 Interpretation and review of laboratory resultsAbnoSurgical Specialty Hospital-Coordinated HlthPT Coag (PPP) [Time]22.8 sHighNHCA Midwest Division INR2.34NOWA HealthcareComment on above: DESIRED INR: 2.0-3.0 CONDITIONS NOT LISTED BELOW 2.5-3.5 FOR PROSTHETIC HEART VALVE REPLACEMENT 2.5-3.5 RECURRENT THROMBOSIS CLINDoctors Hospital of SpringfieldALL CBC WITH AUTO DIFFon 97-48-5928HQFOQNJRH ABSOLUTE AUTO0.1NOMS HealthcareBasophils/100 WBC (Bld)0.9 %0.2 - 2.0 %NOMSaint John'S Breech [facility] Medical Center Eosinophils/100 WBC (Bld)5.6 %0.9 - 7.0 %Kindred HospitalErythrocyte distribution width (RBC) [Ratio]14.6 %11.0 - 15.0 %NOMSaint John'S Breech Regional Medical CenterHematocrit (Bld) [Volume fraction]39.6 %36.0 - 48.0 %[facility]red HospitalHemoglobin (Bld) [Mass/Vol]12.7 g/dL 12.0 - 16.0 g/dLKindred HospitalIMMATURE GRANULOCYTES ABS AUTO0.02NOMS [facility] Immature granulocytes/100 WBC (Bld)0.4 %0.0 - 0.5 %[facility]red HospitalInterpretation and review of laboratory resultsAbnoSurgical Specialty Hospital-Coordinated HlthLYMPHOCYTES ABSOLUTE AUTO1.8NOMS [facility] HospitalLymphocytes/100 WBC (Bld)32 %20.5 - 60.0 %[facility] MCH (RBC) [Entitic mass]31 pg26.7 - 34.0 pgNOMercy Hospital WashingtonMCHC (RBC) [Mass/Vol] 32.1 g/dL29.9 - 35.2 g/dLKindred HospitalMCV (RBC) [Entitic vol]96.6 fL81.0 - 99.0 fLNOMercy Hospital WashingtonMONOCYTES ABSOLUTE AUTO0.6NOMS [facility] HospitalMonocytes/100 WBC (Bld)9.9 %1.7 - 12.0 %NOMSaint John'S Breech Regional Medical CenterNEUTROPHILS ABSOLUTE AUTO2.9NOMercy Hospital Washington Neutrophils/100 WBC (Bld)51.2 %43.0 - 75.0 %Kindred HospitalPlatelet mean volume (Bld) [Entitic vol]8.8 fLLow9.5 - 13.5 fLDeaconess Incarnate Word Health System EO #0.3NOCenterpoint Medical Center [id number] Medical Center RBC4.1LowNHCA Midwest Division WBC5.7NOMercy Hospital WashingtonCLINISYNUnion Medical Center MICROALB CREAT RATIO RANDOMon 11-02-2024 CREATININE URINE BNYXPI000.56 mg/dL20.00 - 300.00 mg/dLKindred Hospital Interpretation and review of laboratory resultsAbMemorial HealthcareMICROALBUM CREATININE RATIO UR129.7 mg/gHigh0.0 - 29.9 mg/gNSAINT FRANCIS [facility] HealthcareComment on above: NO MICROALBUMINURIA 0-29 MG/G CLINICAL MICROALBUMINURIA 30-300 MG/G MACROALBUMINURIA >300 MG/G MICROALBUMIN URINE KYFXIR53.4 mg/dLNINF - 30.0 mg/dLECU [facility] HospitalOH PROTHROMBIN TIME INR W/O COUMon 84-48-0316Vvapowabmzgdpp and review of laboratory resultsAbMemorial HealthcarePT Coag (PPP) [Time]28.7 s HighDeaconess Incarnate [facility] INR3.02[facility] HealthcareComment on above:DESIRED INR: 2.0-3.0 CONDITIONS NOT LISTED BELOW 2.5-3.5 FOR PROSTHETIC HEART VALVE REPLACEMENT 2.5-3.5 RECURRENT THROMBOSIS CLINISYNCKindred HospitalALL CBC WITH AUTO DIFFon 45-91-0361EYLTDXDKN ABSOLUTE AUTO0.1NOMS [facility] HospitalBasophils/100 WBC (Bld)1 %0.2 - 2.0 %[facility] Eosinophils/100 WBC (Bld)3.7 %0.9 - 7.0 %[facility]red HospitalErythrocyte distribution width (RBC) [Ratio]14.4 %11.0 - 15.0 %[facility]red HospitalHematocrit (Bld) [Volume fraction]38.7 %36.0 - 48.0 %[facility]red HospitalHemoglobin (Bld) [Mass/Vol]12.4 g/dL 12.0 - 16.0 g/dLKindred HospitalIMMATURE GRANULOCYTES ABS AUTO0.02NOMS [facility] Immature granulocytes/100 WBC (Bld)0.3 %0.0 - 0.5 %[facility] HospitalInterpretation and review of laboratory resultsAbnormalKindred HospitalLYMPHOCYTES ABSOLUTE AUTO1.8NOMercy Hospital WashingtonLymphocytes/100 WBC (Bld)28.4 %20.5 - 60.0 %[facility] HospitalH (RBC) [Entitic mass]30.9 pg26.7 - 34.0 pgSt. Luke's HospitalHC (RBC) [Mass/Vol]32 g/dL29.9 - 35.2 g/dLSt. Luke's HospitalV (RBC) [Entitic vol]96.5 fL 81.0 - 99.0 fLKindred HospitalMONOCYTES ABSOLUTE AUTO0.4NOMercy Hospital Washington Monocytes/100 WBC (Bld)5.9 %1.7 - 12.0 %[facility]red HospitalNEUTROPHILS ABSOLUTE AUTO 3.8NOMercy Hospital WashingtonNeutrophils/100 WBC (Bld)60.7 %43.0 - 75.0 %[facility] Platelet mean volume (Bld) [Entitic vol]8.9 fLLow9.5 - 13.5 fLKindred HospitalTB EO #0.2NOMS [facility] [id number] Medical Center RBC4.01LowNOCenterpoint Medical Center WBC6.3NOMercy Hospital WashingtonCLINISYNCNLake Regional Health System PROTHROMBIN TIME INR W/O COUMon 91-39-4349Djvzrfizaigexx and review of laboratory resultsAbnormFayette County Memorial Hospital HealthcarePT Coag (PPP) [Time]26.7 [facility] INR2.79NOWA HealthcareComment on above:DESIRED INR: 2.0-3.0 CONDITIONS NOT LISTED BELOW 2.5-3.5 FOR PROSTHETIC HEART VALVE REPLACEMENT 2.5-3.5 RECURRENT THROMBOSIS CLINISYNCNOFreeman Neosho [facility] PROTHROMBIN TIME INR W/O COUMon 09-13-2024 Interpretation and review of laboratory resultsAbnoSurgical Specialty Hospital-Coordinated HlthPT Coag (PPP) [Time]17.8 [facility] INR1.78NOWA HealthcareComment on above: DESIRED INR: 2.0-3.0 CONDITIONS NOT LISTED BELOW 2.5-3.5 FOR PROSTHETIC HEART VALVE REPLACEMENT 2.5-3.5 [facility]UR[facility]IS [facility] PROT[facility] TIME INR W/O COUMon 08-17-2024 Interpretation and review of laboratory resultsAbMemorial HealthcarePT Coag (PPP) [Time]19.7 [facility] INR1.99NOWA HealthcareComment on above: DESIRED INR: 2.0-3.0 CONDITIONS NOT LISTED BELOW 2.5-3.5 FOR PROSTHETIC HEART VALVE REPLACEMENT 2.5-3.5 RECURRENT THROMBOSIS [facility] HazeltonOphthalmic OCT panelon 12-33-0282WMLRKindred HospitalRig Eye Images reviewed and comparison made to baseline, Images reviewed. To assess optic nerve function and for use in future follow-up. Reliability: good and adequate. Left Eye Images reviewed and comparison made to baseline, Images reviewed. To assess optic nerve function and for use in future follow-up. Reliability: good and adequate. Notes Good nerve fiber layer (NFL) thickness both eyes (OU). Stable.[facility] HospitalRadiology Study observation (narrative)[facility] PROTHROMBIN TIME INR W/O COUMon 13-70-0807Sjivtfebbbfdeg and review of laboratory resultsAbMemorial HealthcarePT Coag (PPP) [Time]27 [facility] INR2.82NOWA HealthcareComment on above:DESIRED INR: 2.0-3.0 CONDITIONS NOT LISTED BELOW 2.5-3.5 FOR PROSTHETIC HEART VALVE REPLACEMENT 2.5-3.5 RECURRENT THROMBOSIS [facility] HazeltonAmbulatory Visit Summaryon 81-29-6875Giyxgzoqgn Visit SummaryAmbulatory Visit Summary WILDA SEN :1945 Visit Date:07/12/2024 [...] of ureteric calculus (04/12/2016), Cystoscopic removal of uretericstent (03/28/2016), ESWL of kidney (02/15/2016), Endoscopic retrograde pyelogram (01/16/2016), ESWLof kidney (06/29/2013), Cystoscopic removal of ureteric stent [...] with CORA AGUIAR, MILDRED Castillo When: Where: [address] [place] [address] [place], [place] [id number]- Medications What How Much When Instructions Unchanged [...] Every day Contact prescribing physician if questions orconcerns Unchanged cyanocobalamin (Vitamin B12) 3,000 Milligram By [...] murmur History of uterine cancer 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 Kidney stone Kidney [...] may be greater depending (more content not included)...[facility] 58-46-5259Wsaditisd Reminders From: Julita Vu To: CHEVY Jackson; Sent: 07/12/2024 12:09:59 EST Show up: 12/10/2025 [...] ) Other: PROVIDER RELATED REMINDER:_ ( ) Accident Investigator ( ) Call Pharmacy ( ) Call Lab ( ) Other: Special Instructions:_ Comments:_[facility] Medical CenterRemindersReminder From: Jo-Ann Schaeffer To: EU - Administrative; Sent: 07/12/2024 11:46:18 EST Show up: 04/17/2026 11:46:00 EDT Subject: 2 YR AND KUB Due Date/Time: 07/03/2026 11:46:00 EST Reminder/Recall SCHEDULE IN 2 YRS AND KUB W/ DR KingemiliaOhiohealth Van Wert HospitalUrology Office/Clinic Noteon 91-56-3747Znpcryq Office/Clinic NoteUrology Office/Clinic Note Chief Complaint 3 month F/U w KUB HPI Staff 18 mo with KUB due to kidney stones. KUB 07/05/24-[facility] *no uro [...] and history for this patient from Dr. Jackson. I have reviewed and verified the staff [...] Not worrisome, stable. 3. 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 [1] Overall the patient is aware that she has only 2 small tiny stones in the right kidney, found by CTscan but not confirmed on the KUB which [...] Information CORA AGUIAR, Eugenia Venegas, URL [address] [facility] [facility] [place] [id number]- Additional Instructions: 18 mos with KUB Patient Education Dietary Guidelines to Help Prevent Kidney Stones I, Julita Vu, personally scribed for Dr. Jackson on 07/12/2024 11:45:03. . Portions of this record may have been created with voice recognition artificial intelligence software, specifically [employer], [employer] and or [employer]iro. Substitutions may have occurred due to the inherent limitations of voice recognition and artificial intelligence software. 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 Kidney stone Kidney stones Nocturia Ureteral stone Ureteral stone with hydronephrosis Historical No qualifying data Procedure/Surgical History Lithotripsy (08/14/2023), ESWL - Extracorporeal shockwave lithotripsy for renal calculus (08/26/2019), Cystoscopic laser lithotripsy of ureteric calculus (04/12/2016), Cystoscopic removal of uretericstent (03/28/2016), ESWL of kidney (02/15/2016), Endoscopic retrograde pyelogram (01/16/2016), ESWLof kidney (06/29/2013), Cystoscopic removal of ureteric stent (09/10/2010), ESWL of kidney (08/29/2010), Cystoscopic insertion of ureteric stent (08/23/2010), Endoscopic retrograde pyelogram (03/02/2008), Cystoscopic ureteroneocystostomy with insertion of ureteral stent (10/16/2004), Abdominal hysterectomy, Appendectomy, CE - Cataract extraction, Partial lobectomy of lung, Tonsillectomy. Medications acarbose, 100 mg, Oral, TID aspirin 8 (more content not included)...[facility] County Medical CenterComment on above:Result Comment: Electronically Signed By: Eugenia JACKSON MD\.br\Date and Time Signed: 07/12/24 12:24 EST\.br\Electronically Co-Signed By: Julita Vu\.br\Date and Time Co-Signed: 07/12/24 11:46 ESTXR ABDOMEN 1Von 93-48-2332[place] [address] XRay Report Signed Patient: WILDA SEN MR#: [id number] : 1945 Acct:[id number] Age/Sex: 79 / F ADM Date: 07/05/24 Loc: [facility] Attending Dr: Eugenia Jackson M.D. Ordering Physician: Eugenia Jackson M.D. Date of Service: 07/05/24 Procedure(s): XR abdomen 1V Accession Number(s): [id number] cc: Eugenia Jackson M.D.; JAYME PEREZ [place] [address] Patient Name: WILDA SEN MRN: [id number]:[id number] date: 1945 Sex: F Assigned Patient Location: [facility] Current Patient Location: [facility] Accession/Order Number: [id number] Exam Date: 07/05/2024 09:18 Report Date: 07/05/2024 23:19 At the request of: EUGENIA JACKSON Procedure: XR abdomen 1V EXAMINATION: XR [...] excluded on abdominal radiographs. Electronically authenticated by: MYRTLE KHOURY Date: 07/05/2024 23:19 Dictated By: Myrtle Khoury M.D. Signed By: 07/05/242321 DD/ 18 TD/TT: Adult Care Manager:ESAHRadiology, Radiologist, - 07/05/2024 [place] [address] XRay Report Signed Patient: WILDA SEN MR#: [id number] : 1945 Acct:[id number] Age/Sex: 79 / F ADM Date: 07/05/24 Loc: RAD Attending Dr: Eugenia Jackson M.D. Ordering Physician: Eugenia Jackson M.D. Date of Service: 07/05/24 Procedure(s): XR abdomen 1V Accession Number(s): [id number] cc: Eugenia Jackson M.D.; JAYME PEREZ [place] [phone] Patient Name: WILDA SEN MRN: [id number] date: 1945 Sex: F Assigned Patient Location: RAD Current Patient Location: RAD Accession/Order Number: [id number] Exam Date: 07/05/2024 09:18 Report Date: 07/05/2024 23:19 At the request of: EUGENIA JACKSON Procedure: XR abdomen 1V EXAMINATION: XR [...] excluded on abdominal radiographs. Electronically authenticated by: MYRTLE KHOURY Date: 07/05/2024 23:19 Dictated By: Myrtle Khoury M.D. Signed By: 07/05/242321 DD/ 18 TD/TT: Adult Care Manager: NOMS HealthcareRadiology Study observation (narrative)NOM HealthcareXR ABDOMEN 1VOrdered By: Radiologist Radiology on 06-89-7504HPTNKindred Hospital Work Phone: srTA PROTHROMBIN TIME INR W/O COUMon 07-01-2024 Interpretation and review of laboratory resultsAbnormalNOMS HealthcarePT Coag (PPP) [Time]30.3 sHighNOMS HealthcareTBH INR3.21NOWA HealthcareComment on above: DESIRED INR: 2.0-3.0 CONDITIONS NOT LISTED BELOW 2.5-3.5 FOR PROSTHETIC HEART VALVE REPLACEMENT 2.5-3.5 RECURRENT THROMBOSIS CLINISYNCNOWA HealthcareALL CBC WITH AUTO DIFFon 32-81-0814FCMOJITPY ABSOLUTE AUTO0.1NOMS HealthcareBasophils/100 WBC (Bld)0.8 %0.2 - 2.0 %[facility] Eosinophils/100 WBC (Bld)3.2 %0.9 - 7.0 %Kindred HospitalErythrocyte distribution width (RBC) [Ratio]14.5 %11.0 - 15.0 %[facility]red HospitalHematocrit (Bld) [Volume fraction]38.1 %36.0 - 48.0 %[facility]red HospitalHemoglobin (Bld) [Mass/Vol]12.3 g/dL 12.0 - 16.0 g/dLKindred HospitalIMMATURE GRANULOCYTES ABS AUTO0.03NOMS [facility] Immature granulocytes/100 WBC (Bld)0.5 %0.0 - 0.5 %[facility] HospitalInterpretation and review of laboratory resultsAbnormalNOMercy Hospital WashingtonLYMPHOCYTES ABSOLUTE BCKO4USBX [facility] HospitalLymphocytes/100 WBC (Bld)30.8 %20.5 - 60.0 %[facility] MCH (RBC) [Entitic mass]31.6 pg26.7 - 34.0 pgNOMercy Hospital WashingtonMCHC (RBC) [Mass/Vol]32.3 g/dL29.9 - 35.2 g/dLKindred HospitalMCV (RBC) [Entitic vol]97.9 fL 81.0 - 99.0 fLKindred HospitalMONOCYTES ABSOLUTE AUTO0.5NOMercy Hospital Washington Monocytes/100 WBC (Bld)7.7 %1.7 - 12.0 %Kindred HospitalNEUTROPHILS ABSOLUTE AUTO 3.8NOMS [facility] HospitalNeutrophils/100 WBC (Bld)57 %43.0 - 75.0 %[facility] Platelet mean volume (Bld) [Entitic vol]8.9 fLLow9.5 - 13.5 fLKindred HospitalTB EO #0.2NOMS [facility] HospitalTB [id number] [facility] RBC3.89LowNOCenterpoint Medical Center WBC6.6NOMercy Hospital WashingtonCLINISYNCNOMS HealthcareCT CHEST W CONTRASTon 79-50-2269U[address] [address] [address] Scan Report Signed Patient: WILDA SEN MR#: [id number] : 1945 Acct:[id number] Age/Sex: 79 / F ADM Date: 05/14/24 Loc: CT Attending Dr: JAYME PEREZ Ordering Physician: JAYME PEREZ Date of Service: 05/14/24 Procedure(s): CT chest w con Accession Number(s): [id number] cc: JAYME PEREZ [address] [address] Patient Name: WILDA SEN MRN: [id number] date: 1945 Sex: F Assigned Patient Location: CT Current Patient Location: Accession/Order Number: [id number] Exam Date: 05/14/2024 09:00 Report Date: 05/15/2024 [...] atherosclerotic coronary artery disease. Electronically authenticated by: MYRTLE KHOURY Date: 05/15/2024 07:23 Dictated By: Myrtle Khoury M.D. Signed By: 05/15/24725 DD/ 2 TD/TT: Adult Care Manager:TBHRadiology, Radiologist, - 05/15/2024 [place] [address] CT Scan Report Signed Patient: WILDA SEN MR#: [id number] : 1945 Acct:[id number] Age/Sex: 79 / F ADM Date: 05/14/24 Loc: CT Attending Dr: JAYME PEREZ Ordering Physician: JAYME PEREZ Date of Service: 05/14/24 Procedure(s): CT chest w con Accession Number(s): [id number] cc: JAYME PEREZ [place] [address] Patient Name: WILDA SEN MRN: [id number]:[id number] date: 1945 Sex: F Assigned Patient Location: CT Current Patient Location: Accession/Order Number: [id number] Exam Date: 05/14/2024 09:00 Report Date: 05/15/2024 [...] atherosclerotic coronary artery disease. Electronically authenticated by: MYRTLE KHOURY Date: 05/15/2024 07:23 Dictated By: Myrtle Khoury M.D. Signed By: 05/15/24725 DD/ 2 TD/TT: Adult Care Manager: YESSI HealthcareRadiology Study observation (narrative)NOM HealthcareCT CHEST W CONTRASTOrdered By: Radiologist Radiology on 04-91-3453NEVHKindred Hospital Work Phone: srJG PROTHROMBIN TIME INR W/O COUMon 05-14-2024 Interpretation and review of laboratory resultsAbnormalNOWA HealthcarePT Coag (PPP) [Time]23 sHighNOMS [facility] HospitalTB INR2.36NOWA HealthcareComment on above: DESIRED INR: 2.0-3.0 CONDITIONS NOT LISTED BELOW 2.5-3.5 FOR PROSTHETIC HEART VALVE REPLACEMENT 2.5-3.5 RECURRENT THROMBOSIS CLINISYNCNOMS HealthcareCT ABDOMEN PELVIS W CONon 26-32-3680Jka[place] [address] CT Scan Report Signed Patient: WILDA SEN MR#: [id number] : 1945 Acct:[id number] Age/Sex: 79 / F ADM Date: 04/22/24 Loc: LAB Attending Dr: JAYME PEREZ Ordering Physician: JAYME PEREZ Date of Service: 04/22/24 Procedure(s): CT abdomen pelvis w con Accession Number(s): [id number] cc: JAYME PEREZ [place] [phone] Patient Name: WILDA SEN MRN: [id number] date: 1945 Sex: F Assigned Patient Location: LAB Current Patient Location: Accession/Order Number: [id number] Exam Date: 04/22/2024 12:40 Report Date: 04/23/2024 [...] disc disease at L5-S1. Electronically authenticated by: MYRTLE KHOURY Date: 04/23/2024 04:45 Dictated By: Myrtle Khoury M.D. Signed By: 04/23/24447 DD/ 4 TD/TT: Adult Care Manager:TBHRadiology, Radiologist, - 04/23/[address] [address] [address] Scan Report Signed Patient: WILDA SEN MR#: [id number] : 1945 Acct:[id number] Age/Sex: 79 / F ADM Date: 04/22/24 Loc: LAB Attending Dr: JAYME PEREZ Ordering Physician: JAYME PEREZ Date of Service: 04/22/24 Procedure(s): CT abdomen pelvis w con Accession Number(s): [id number] cc: JAYME PEREZ [place] [phone] Patient Name: WILDA SEN MRN: [id number] date: 1945 Sex: F Assigned Patient Location: LAB Current Patient Location: Accession/Order Number: [id number] Exam Date: 04/22/2024 12:40 Report Date: 04/23/2024 [...] disc disease at L5-S1. Electronically authenticated by: MYRTLE KHOURY Date: 04/23/2024 04:45 Dictated By: Myrtle Khoury M.D. Signed By: 04/23/24447 DD/ 4 TD/TT: Adult Care Manager: [facility]red HospitalRadiology Study observation (narrative)Kindred HospitalCT ABDOMEN PELVIS W CONOrdered By: Radiologist Radiology on 84-39-1255MJKIKindred Hospital Work Phone: TBH CREATININEon 14-68-5476Koameviwdc [Mass/Vol]0.84 mg/dL0.55 - 1.02 mg/dLNOWA HealthcareGFR/1.73 sq M.predicted CKD-EPI (S/P/Bld) [Vol rate/Area]>60>=60 mL/min/1.73m 2NOMS HealthcareTBH EGFR-NON AF LUXEMBOURGER>60 >=60 mL/min/1.73m 2NOMS HealthcareCLINISYNCNOMS HealthcareALL CBC WITH AUTO DIFF on 68-83-2374YTKIXSOVW ABSOLUTE AUTO0.0NOMS HealthcareBasophils/100 WBC (Bld)0.6 %0.2 - 2.0 %NOMSaint John'S Breech Regional Medical CenterEosinophils/100 WBC (Bld)2.1 %0.9 - 7.0 %Kindred HospitalErythrocyte distribution width (RBC) [Ratio]14.1 %11.0 - 15.0 %Kindred HospitalHematocrit (Bld) [Volume fraction]41.8 %36.0 - 48.0 %[facility] Hemoglobin (Bld) [Mass/Vol]13.5 g/dL12.0 - 16.0 g/dLNOWA HealthcareIMMATURE GRANULOCYTES ABS AUTO0.02NOMS HealthcareImmature granulocytes/100 WBC (Bld)0.3 % 0.0 - 0.5 %NOMS HealthcareInterpretation and review of laboratory results AbnormalNOMercy Hospital WashingtonLYMPHOCYTES ABSOLUTE AUTO2.1NOMS [facility] Lymphocytes/100 WBC (Bld)32.2 %20.5 - 60.0 %[facility] (RBC) [Entitic mass]31.0 pg26.7 - 34.0 pgSt. Luke's HospitalHC (RBC) [Mass/Vol]32.3 g/dL29.9 - 35.2 g/dLSt. Luke's HospitalV (RBC) [Entitic vol]95.9 fL81.0 - 99.0 fLKindred HospitalMONOCYTES ABSOLUTE AUTO0.5NOMercy Hospital WashingtonMonocytes/100 WBC (Bld)6.8 % 1.7 - 12.0 %Kindred HospitalNEUTROPHILS ABSOLUTE AUTO3.8NOMercy Hospital Washington Neutrophils/100 WBC (Bld)58.0 %43.0 - 75.0 %Kindred HospitalPlatelet mean volume (Bld) [Entitic vol]8.6 fLLow9.5 - 13.5 fLKindred HospitalTB EO #0.1NOMS [facility] [id number] Medical Center RBC4.36NOCenterpoint Medical Center WBC6.6NOMercy Hospital WashingtonCLINISYNCNNorthwest Medical CenterOH PROTHROMBIN TIME INR W/O COUMon 38-69-3619Tnwooqpkctruvd and review of laboratory resultsAbnoSurgical Specialty Hospital-Coordinated Hlth PT Coag (PPP) [Time]27.7 sHigAbbeville Area Medical Center INR2.90Kindred HospitalComment on above:DESIRED INR: 2.0-3.0 CONDITIONS NOT LISTED BELOW 2.5-3.5 FOR PROSTHETIC HEART VALVE REPLACEMENT 2.5-3.5 RECURRENT THROMBOSIS CLINISYNCNOMercy Hospital WashingtonMagnesium [Mass/volume] in Serum or PlasmaOrdered By: Radames Monteiro on 56-44-0945Rixflfcdm [Mass/Vol]1.9 mg/dLNormal1.9-2.7FOhio State Health SystemComment on above:Result Comment: PERFORMED BY: [place] [address] PATHOLOGIST CONTROLLER MECHANIC BERNIE GRAYSON M.D.Performed By: #### MG, PHOS #### [place] [address] USAPhosphate [Mass/volume] in Serum or PlasmaOrdered By: Radames Monteiro on 34-59-4828Dileyoqny [Mass/Vol]3.7 mg/dLNormal2.5-4.5FOhio State Health SystemComment on above:Performed By: #### MG, PHOS #### [facility] [address] [place] [id number] [facility] [[email or web address]]ALL CBC WITH AUTO DIFFon 93-97-3657ISZTBOBPB ABSOLUTE AUTO 0.0NOMS HealthcareBasophils/100 WBC (Bld)0.6 %0.2 - 2.0 %NOMS Healthcare Eosinophils/100 WBC (Bld)5.1 %0.9 - 7.0 %NOM HealthcareErythrocyte distribution width (RBC) [Ratio]14.3 %11.0 - 15.0 %NOMS HealthcareHematocrit (Bld) [Volume fraction]41.5 %36.0 - 48.0 %NOMSaint John'S Breech Regional Medical CenterHemoglobin (Bld) [Mass/Vol]13.3 g/dL 12.0 - 16.0 g/dLNOMercy Hospital WashingtonIMMATURE GRANULOCYTES ABS AUTO0.01NOMS [facility] Immature granulocytes/100 WBC (Bld)0.1 %0.0 - 0.5 %[facility] HealthcareInterpretation and review of laboratory resultsAbnormalNOWA HealthcareLYMPHOCYTES ABSOLUTE AUTO2.9NOMS HealthcareLymphocytes/100 WBC (Bld)39.4 %20.5 - 60.0 %[facility] Luke's HospitalH (RBC) [Entitic mass]30.9 pg26.7 - 34.0 pgNOResearch Medical Center-Brookside CampusHC (RBC) [Mass/Vol]32.0 g/dL29.9 - 35.2 g/dLNOMercy Hospital WashingtonMCV (RBC) [Entitic vol]96.5 fL 81.0 - 99.0 fLNOMercy Hospital WashingtonMONOCYTES ABSOLUTE AUTO0.4NOMS Healthcare Monocytes/100 WBC (Bld)6.1 %1.7 - 12.0 %NOM HealthcareNEUTROPHILS ABSOLUTE AUTO 3.5NOMS HealthcareNeutrophils/100 WBC (Bld)48.7 %43.0 - 75.0 %[facility] Platelet mean volume (Bld) [Entitic vol]8.7 fLLow9.5 - 13.5 fLNOMercy Hospital WashingtonTB EO #0.4NOMS HealthcareTB [id number] [facility] RBC4.30NOMS [facility] WBC 7.2NOMS HealthcareCLINISYNCNNorthwest Medical CenterOH PROTHROMBIN TIME INR W/O COUMon 05-64-2500Sxknuhtgekewjg and review of laboratory resultsAbnormHoly Redeemer Hospital PT Coag (PPP) [Time]28.2 sHighNHCA Midwest Division INR2.96NOMercy Hospital WashingtonComment on above:DESIRED INR: 2.0-3.0 CONDITIONS NOT LISTED BELOW 2.5-3.5 FOR PROSTHETIC HEART VALVE REPLACEMENT 2.5-3.5 RECURRENT THROMBOSIS CLINISYNCNOMercy Hospital WashingtonXR DEXA AXIAL SKELETONon 03-23-2806FhyT[place] [id number] XRay Report Signed Patient: WILDA SEN MR#: [id number] : 1945 Acct:[id number] Age/Sex: 78 / F ADM Date: 01/14/24 Loc: RAD Attending Dr: RADAMES MONTEIRO Ordering Physician: RADAMES MONTEIRO Date of Service: 01/14/24 Procedure(s): XR DEXA axial skeleton Accession Number(s): [id number] cc: JAYME PEREZ ; RADAMES MONTEIRO [address] [address] Patient Name: WILDA SEN MRN: [id number] date: 1945 Sex: F Assigned Patient Location: [facility] Current Patient Location: [facility] Accession/Order Number: [id number] Exam Date: 01/14/2024 12:48 Report Date: 01/14/2024 15:50 At the request of: RADAMES MONTEIRO Procedure: XR DEXA axial skeleton EXAMINATION: XR [...] prevention and treatment of osteoporosis. Osteoporos Int. 2021;33(10):2788-2038. doi: 10.1007/r28692-229-03358-f. Epub 2021Nov 08. Erratum in: Osteoporos Int. 2021Feb 07;: PMID: 37261754; PMCID: [id number]. Electronically authenticated by: MYRTLE KHOURY Date: 01/14/2024 15:50 Dictated By: Myrtle Khoury M.D. Signed By: 01/14/24 1553 DD/ 1550 TD/TT: Adult Care Manager:ESAHRadiology, Radiologist, - 01/14/[address] [address] XRay Report Signed Patient: WILDA SEN MR#: [id number] : 1945 Acct:[id number] Age/Sex: 78 / F ADM Date: 01/14/24 Loc: RAD Attending Dr: RADAMES MONTEIRO Ordering Physician: RADAMES MONTEIRO Date of Service: 01/14/24 Procedure(s): XR DEXA axial skeleton Accession Number(s): [id number] cc: JAYME PEREZ ; RADAMES MONTEIRO The [address] [address] Patient Name: WILDA SEN MRN: [id number] date: 1945 Sex: F Assigned Patient Location: [facility] Current Patient Location: [facility] Accession/Order Number: [id number] Exam Date: 01/14/2024 12:48 Report Date: 01/14/2024 15:50 At the request of: RADAMES MONTEIRO Procedure: XR DEXA axial skeleton EXAMINATION: XR [...] prevention and treatment of osteoporosis. Osteoporos Int. 2021;33(10):6554-5976. doi: 10.1007/l00840-271-98247-y. Epub 2021Nov 08. Erratum in: Osteoporos Int. 2021Feb 07;: PMID: 70321274; PMCID: [id number]. Electronically authenticated by: MYRTLE KHOURY Date: 01/14/2024 15:50 Dictated By: Myrtle Khoury M.D. Signed By: 01/14/24 155 DD/ 1550 TD/TT: Adult Care Manager: YESSI HealthcareRadiology Study observation (narrative)[facility] HealthcareXR DEXA AXIAL SKELETONOrdered By: Radiologist Radiology on 04-79-1243XMWY Healthcare Work Phone: XR ABDOMEN 1Von 81-02-1930Wqq[address] [address] XRay Report Signed Patient: WILDA SEN MR#: [id number] : 1945 Acct:[id number] Age/Sex: 78 / F ADM Date: 10/08/23 Loc: RAD Attending Dr: Eugenia Jackson M.D. Ordering Physician: Eugenia Jackson M.D. Date of Service: 10/08/23 Procedure(s): XR abdomen 1V Accession Number(s): [id number] cc: Eugenia Jackson M.D.; JAYME PEREZ The [place] [id number] Patient Name: WILDA SEN MRN: [id number] date: 1945 Sex: F Assigned Patient Location: RAD Current Patient Location: Accession/Order Number: [id number] Exam Date: 10/08/2023 10:37 Report Date: 10/09/2023 06:22 At the request of: EUGENIA JACKSON Procedure: XR abdomen 1V EXAMINATION: XR [...] with CT abdomen pelvis. Electronically authenticated by: MYRTLE KHOURY Date: 10/09/2023 06:22 Dictated By: Myrtle Khoury M.D. Signed By: 10/09/23624 DD/ 1 TD/TT: Adult Care Manager:TBHRadiology, Radiologist, MD - 10/09/2023 [place] [address] XRay Report Signed Patient: WILDA SEN MR#: [id number] : 1945 Acct:[id number] Age/Sex: 78 / F ADM Date: 10/08/23 Loc: RAD Attending Dr: Eugenia Jackson M.D. Ordering Physician: Eugenia Jackson M.D. Date of Service: 10/08/23 Procedure(s): XR abdomen 1V Accession Number(s): [id number] cc: Eugenia Jackson M.D.; JAYME PEREZ [address] [address] Patient Name: WILDA SEN MRN: [id number] date: 1945 Sex: F Assigned Patient Location: [facility] Current Patient Location: Accession/Order Number: [id number] Exam Date: 10/08/2023 10:37 Report Date: 10/09/2023 06:22 At the request of: EUGENIA JACKSON Procedure: XR abdomen 1V EXAMINATION: XR [...] with CT abdomen pelvis. Electronically authenticated by: MYRTLE KHOURY Date: 10/09/2023 06:22 Dictated By: Myrtle Khoury M.D. Signed By: 10/09/23624 DD/ 1 TD/TT: Adult Care Manager: NOMKerry HealthcareRadiology Study observation (narrative)NOMS HealthcareXR ABDOMEN 1VOrdered By: Radiologist Radiology on 14-89-1132BYQZ Healthcare Work Phone: aLL BUNon 97-07-8125Pmva nitrogen [Mass/Vol]12.0 mg/dL 7.0 - 18.0 mg/dLNOMS HealthcareALL CARBON DIOXIDEon 00-60-7668TR9 [Moles/Vol] 30.1 mmol/L21.0 - 32.0 mmol/LNOMS HealthcareALL CHLORIDEon 71-33-6480Zestynic [Moles/Vol]104 mmol/L98 - 107 mmol/LNOMS HealthcareALL PHOSPHOROUSon 08-20-2023 Phosphate [Mass/Vol]4.1 mg/dL2.6 - 4.7 mg/dLNOMercy Hospital WashingtonALL SODIUMon 19-61-9594Nyigqa [Moles/Vol]141 mmol/L136 - 145 mmol/LNOMS HealthcareALL URIC ACIDon 56-96-9100Fewqp [Mass/Vol]4.4 mg/dL2.6 - 6.0 mg/dLKindred HospitalCCF CALCIUMon 88-89-7482Rfgjvra [Mass/Vol]9.1 mg/dL8.5 - 10.1 mg/dLKindred HospitalNo Panel Informationon 66-90-2839LLTRDHVRTUUFY HealthcareTB CREATININEon 39-83-6794Ccearfggrv [Mass/Vol]0.86 mg/dL0.55 - 1.02 mg/dLKindred Hospital GFR/1.73 sq M.predicted CKD-EPI (S/P/Bld) [Vol rate/Area]>6060 - [facility] CenterTB EGFR-NON AF LUXEMBOURGER>6060 - [facility] CenterCOVID/FLU/RSV RT-PCRon 31-72-5011DKUR-CoV-2 (COVID-19) RNA TREASURE+probe Ql (Unsp spec)Negative [facility] Other COVID/FLU/RSV RT-PCRNegativePinehurst CallistoTV Other COVID/FLU/RSV RT-PCRPositivePinehurst CallistoTV Other Activated partial thromboplastin time (aPTT) in platelet poor plasma by coagulation aOrdered By: Eugenia Jackson on 83-80-8988yOKB Coag (PPP) [Time]35.9 s25.1-36.5FOhio State Health SystemComment on above:A hematocrit value greater than 55% may lead to inaccurate results in coagulation testing. Patientshaving hematocrit values >55% require a special collection tube for coagulation studies. Please contact the laboratory at [phone] for redraw instructions.Basophils Auto (Bld) [#/Vol]Ordered By: Eugenia Jackson on 07-35-8610Pzketfizi (Bld) [#/Vol]0.0 10*3/uL0.0-0.2FOhio State Health SystemBasophils/100 WBC Auto (Bld)Ordered By: Eugenia Jackson on 76-96-5245Otowndihf/100 WBC (Bld)0.8 %.[facility] Charles HospitalCalcium [Mass/volume] in Serum or PlasmaOrdered By: Eugenia Jackson on 14-64-7426Jrjsxsy [Mass/Vol]10.0 mg/dL8.6-10.3FOhio State Health SystemCarbon dioxide, total [Moles/volume] in Serum or PlasmaOrdered By: Eugenia Jackson on 81-71-1774YE6 [Moles/Vol]30.0 mmol/L21.0-31.0St. Charles HospitalChloride [Moles/volume] in Serum or PlasmaOrdered By: Eugenia Jackson on 12-89-9233Nutyrtef [Moles/Vol]104 mmol/H81-297FkcdxqcrrSt. Charles HospitalCreatinine [Mass/volume] in Serum or PlasmaOrdered By: Eugenia Jackson on 84-68-3359Efudpshumr [Mass/Vol]0.85 mg/dL0.60-1.20St. Charles HospitalEosinophils Auto (Bld) [#/Vol]Ordered By: Eugenia Jackson on 23-32-8084Vvpnipyjoii (Bld) [#/Vol]0.3 10*3/uL0.0-0.45St. Charles HospitalEosinophils/100 WBC Auto (Bld) Ordered By: Eugenia Jackson on 66-79-1505Rnecuqlfnyf/100 WBC (Bld)4.3 %.[facility]. Charles HospitalErythrocyte distribution width Auto (RBC) [Ratio]Ordered By: Eugenia Jackson on 62-91-4000Nhvzmqziacw distribution width (RBC) [Ratio]14.8 % 11.9-15.3FOhio State Health SystemGlucose [Mass/volume] in Serum or PlasmaOrdered By: Eugenia Jackson on 52-30-1303Qzmtxim [Mass/Vol]111 mg/aY53-803 [facility]. Charles HospitalComment on above:ADA recommended reference rangeRandom Glucose Reference Range is dependent on time and content of last meal. Glucose of more than 200 mg/dL in a nonstressed, ambulatory subject supports the diagnosisof Diabetes Mellitus.Hematocrit Auto (Bld) [Volume fraction]Ordered By: Eugenia Jackson on 66-40-9502Ycsgjmunnb (Bld) [Volume fraction]40.3 %34.0-46.4FOhio State Health SystemHemoglobin [Mass/volume] in BloodOrdered By: Eugenia Jackson on 32-26-0751Ivyrniqojx (Bld) [Mass/Vol]13.3 g/dL11.8-15.4FOhio State Health SystemINR in Platelet poor plasma by Coagulation assayOrdered By: Eugenia Jackson on 33-55-4003ZHV Coag (PPP) [Relative time]2.3 {INR}St. Charles HospitalComment on above: INR Therapeutic Range A) Pre- and Peroperative OAT started two weeks before surgery. NOT HIP SURGERY: 1.5 - 2.5 HIP SURGERY: 2 - 3B) Primary and secondary prevention of venous THROMBOSIS: 2 - 3C) Active venous thrombosis, pulmonary embolismand prevention of recurrent venous thrombosis: 2 - 3D) Prevention of arterial thromboembolismincluding patients with mechanical heart valves: 3 - 4.5 Leukocytes [#/volume] corrected for nucleated erythrocytes in Blood by Automated counOrdered By: Eugenia Jackson on 19-56-8427IUJ corrected for nucl RBC Auto (Bld) [#/Vol]5.9 10*3/uL3.8-11.6FOhio State Health SystemLymphocytes Auto (Bld) [#/Vol]Ordered By: Eugenia Jackson on 99-49-3083Zjnvbmbjddn (Bld) [#/Vol]2.2 10*3/uL1.00-4.8St. Charles HospitalLymphocytes/100 WBC Auto (Bld) Ordered By: Eugenia Jackson on 27-59-0968Vbbkyfhpndk/100 WBC (Bld)36.9 %.[facility] Auto (RBC) [Entitic mass]Ordered By: Eugenia Jackson on 15-89-8828FGX (RBC) [Entitic mass]31.1 pg24.7-34.3Fire[facility] Medical CenterMCHC Auto (RBC) [Mass/Vol]Ordered By: Eugenia Jackson on 86-76-2432WLTR (RBC) [Mass/Vol]32.9 g/dL32.0-35.0St. [facility] HospitalMCV Auto (RBC) [Entitic vol]Ordered By: Eugenia Jackson on 41-83-9126MAC (RBC) [Entitic vol]94.4 gD02-829VjmmjwnltSt. Charles HospitalMonocytes Auto (Bld) [#/Vol]Ordered By: Eugenia Jackson on 68-13-5346Aqseqvopb (Bld) [#/Vol]0.5 10*3/uL0.0-0.8St. Charles HospitalMonocytes/100 WBC Auto (Bld)Ordered By: Eugenia Jackson on 24-90-2554Mbqzucagy/100 WBC (Bld)7.8 %.[facility] Neutrophils Auto (Bld) [#/Vol]Ordered By: Eugenia Jackson on 91-70-5025Qbpfgnmprhd (Bld) [#/Vol]3.0 10*3/uL1.8-7.7FOhio State Health SystemNeutrophils/100 WBC Auto (Bld)Ordered By: Eugenia Jackson on 99-72-1671Ggfnvggcixf/100 WBC (Bld) 50.2 %.[facility]. [facility] HospitalNo Panel InformationOrdered By: Eugenia Jackson on 61-05-4282Achrisxvb GFR (CKD-EPI)> 60.0 mL/MinSt. Charles HospitalPharmacy Creatinine Clearance (ChemN/AFOhio State Health System Nucleated erythrocytes [Presence] in Blood by Automated countOrdered By: Eugenia Jackson on 61-32-8418Zpmouyqyc RBC Auto Ql (Bld)0.3 /100{WBC}0-0.5FOhio State Health SystemPlatelet mean volume Auto (Bld) [Entitic vol]Ordered By: Eugenia Jackson on 08-90-8771Gqzyzpop mean volume (Bld) [Entitic vol]7.1 fL6.3-10.7 [facility] [facility] HospitalPlatelets Auto (Bld) [#/Vol]Ordered By: Eugenia Jackson on 71-76-0602Bkyueqzwx (Bld) [#/Vol]363 10*3/tD141-673HuvfhlxkdSt. Charles HospitalPotassium [Moles/volume] in Serum or PlasmaOrdered By: Eugenia Jackson on 37-85-2165Nvvrhxcky [Moles/Vol]5.0 mmol/L3.5-5.1FOhio State Health SystemProthrombin time (PT)Ordered By: Eugenia Jackson on 37-74-8041NG Coag (PPP) [Time]26.6 s9.0-12.9St. Charles HospitalComment on above:A hematocrit value greater than 55% may lead to inaccurate results in coagulation testing. Patientshaving hematocrit values >55% require a special collection tube for coagulation studies. Please contact the laboratory at [phone] for redraw instructions.RBC Auto (Bld) [#/Vol]Ordered By: Eugenia Jackson on 03-26-2023 RBC (Bld) [#/Vol]4.27 10*6/uL3.60-5.00[facility] Hospitalerum or plasma anion gap determinationOrdered By: Eugenia Jackson on 89-19-6523Hlcip gap [Moles/Vol]13.0 mmol/L6.0-15.0[facility] Hospitalodium [Moles/volume] in Serum or PlasmaOrdered By: Eugenia Jackson on 98-54-8705Xiazqe [Moles/Vol]142 mmol/J231-842XmsimdioaSt. Charles HospitalUrea nitrogen [Mass/volume] in Serum or PlasmaOrdered By: Eugenia Jackson on 36-91-6923Kzjb nitrogen [Mass/Vol]12 mg/dL7-25St. Charles HospitalWBC Auto (Bld) [#/Vol]Ordered By: Eugenia Jackson on 49-94-1583NVH (Bld) [#/Vol]5.9 10*3/uL 3.8-11.6FOhio State Health SystemPROTIMEon 14-04-4915CBT Coag (PPP) [Relative time]3.62 {INR}NormalThe [facility] HospitalComment on above:Performed By: #### PT #### [facility] [address] [address] [address] Cerda GUIDELINESSEE [facility], BeachwoodComment on above:Result Comment: DESIRED INR: 2.0 - 3.0 CONDITIONS NOT LISTED BELOW 2.5 - 3.5 FOR PROSTHETIC HEART VALVE REPLACEMENT 2.5 - 3.5 RECURRENT THROMBOSIS Performed By: #### PT #### [facility] [address] [place] [address] Dr. Tg John Coag (PPP) [Time]35.7 sCritically high9.0-11.6The [facility] HospitalComment on above:Performed By: #### PT #### [facility] [address] [place] [address] Dr. Tg FierroPROTIMEon 53-83-5649CWB Coag (PPP) [Relative time]1.90 {INR} NormalThe [facility] HospitalComment on above:Performed By: #### PT #### [facility] [address] [place] [address] Dr. Tg Cerda GUIDELINESSEE [facility], BeachwoodComment on above:Result Comment: DESIRED INR: 2.0 - 3.0 CONDITIONS NOT LISTED BELOW 2.5 - 3.5 FOR PROSTHETIC HEART VALVE REPLACEMENT 2.5 - 3.5 RECURRENT THROMBOSIS Performed By: #### PT #### [facility] [address] [place] [address] Dr. Tg John Coag (PPP) [Time]19.4 sCritically high9.0-11.6ThSelect Medical TriHealth Rehabilitation HospitalComment on above:Performed By: #### PT #### [facility] [address] [place] [address] Dr. Tg Richards AUTO DIFFon 56-10-1544MKYL #0.0 103/ulNormal0.0-0.1[facility] GeneralComment on above:Performed By: #### PT #### [facility] [address] [place] [address] Dr. Tg FierroBasophils/100 WBC (Bld)0.5 %Normal0.2-2.0[facility] Comment on above:Performed By: #### PT #### [facility] [address] [place] [address] Dr. Tg Dent #0.2 103/ulNormal0.0-0.7The [facility] HospitalComment on above: Performed By: #### PT #### [facility] [address] [place] [address] Dr. Tg Sandyosinophils/100 WBC (Bld)2.7 %Normal0.9-7.0The [facility] Comment on above:Performed By: #### PT #### [facility] [address] [place] [address] Dr. Tg Sandyrythrocyte distribution width (RBC) [Ratio]13.4 %Ajlpyp13.0-15.0 The [facility] HospitalComment on above:Performed By: #### PT #### [facility] [address] [place] [address] Dr. Tg FierroHematocrit (Bld) [Volume fraction]40.7 %Mpawbc32.0-48.0The [facility] HospitalComment on above:Performed By: #### PT #### [facility] [address] [place] [address] Dr. Tg FierroHemoglobin (Bld) [Mass/Vol]13.2 g/lKIwzflu32.0-16.0The [facility] HospitalComment on above:Performed By: #### PT #### [facility] [address] [place] [address] Dr. Tg Gee #0.03 10e3/ulNormal0.00-0.03The [facility] Hospitalment on above:Performed By: #### PT #### [facility] [address] [place] [address] Dr. Tg Gee %0.5 %Normal0.0-0.5The [facility] HospitalComment on above: Performed By: #### PT #### [facility] [address] [place] [address] Dr. Tg SanchezMPH #2.1 103/ulNormal1.2-3.8The [facility] HospitalComment on above:Performed By: #### PT #### [facility] [address] [place] [address] Dr. Tg FierroLymphocytes/100 WBC (Bld)34.9 %Mslbck14.5-60.0The [facility] Hospitalment on above:Performed By: #### PT #### [facility] [address] [place] [address] Dr. Tg TorrezUAL DIFF REQNONormalThe [facility] HospitalComment on above: Performed By: #### PT #### [facility] [address] [place] [address] Dr. Tg Clay (RBC) [Entitic mass]30.5 udCebfgv67.7-34.0The [facility] HospitalComment on above:Performed By: #### PT #### [facility] [address] [place] [address] Dr. Tg Clay (RBC) [Mass/Vol]32.4 g/vNTlmsjq99.9-35.2The [facility] HospitalComment on above:Performed By: #### PT #### [facility] [address] [place] [address] Dr. Tg Clay (RBC) [Entitic vol]94.0 cETatpdk12.0-99.0The [facility] HospitalComment on above:Performed By: #### PT #### [facility] [address] [place] [address] Dr. Tg Siu #0.4 103/ulNormal0.3-0.8The [facility] Hospitalment on above:Performed By: #### PT #### [facility] [address] [place] [address] Dr. Tg Zafarocytes/100 WBC (Bld)7.1 %Normal1.7-12.0The [facility] Comment on above:Performed By: #### PT #### [facility] [address] [place] [address] Dr. Tg Blackwell #3.2 103/ulNormal1.4-6.5The [facility] HospitalComment on above:Performed By: #### PT #### [facility] [address] [place] [address] Dr. Tg FierroNeutrophils/100 WBC (Bld)54.3 %Mdjvyd74.0-75.0The [facility] HospitalComment on above:Performed By: #### PT #### [facility] [address] [place] [address] Dr. Tg FierroPlatelet mean volume (Bld) [Entitic vol]8.7 fLCritically low 9.5-13.5The [facility] HospitalComment on above:Performed By: #### PT #### [facility] [address] [place] [address] Dr. Tg FireroPLT295 103/mbUdvdty220-697Mxq [facility] HospitalComment on above: Performed By: #### PT #### [facility] [address] [place] [address] Dr. Tg FierroRBC4.33 106/ulNormal4.20-5.40The [facility] HospitalComment on above:Performed By: #### PT #### [facility] [address] [place] [address] Dr. Tg FierroWBC5.9 103/ulNormal4.0-11.0The [facility] HospitalComment on above: Performed By: #### PT #### [facility] [address] [place] [address] Dr. Tg FierroPROF 14(COMP METB)on 70-03-3163Biestnp [Mass/Vol]3.8 g/dLNormal 3.4-5.0The [facility] HospitalComment on above:Performed By: #### CMP #### [facility] [address] [place] [address] Dr. Tg FierroAlbumin/Globulin [Mass ratio]1.2 {ratio}NormalThe [facility] HospitalCommymichigan medical center west branch on above:Performed By: #### CMP #### [facility] [address] [place] [address] Dr. Tg FergusonP [Catalytic activity/Vol]49 U/UXgsgmp51-885Fly Terrace Park HospitalComment on above:Performed By: #### CMP #### [facility] [address] [address] [address] Tg FergusonT [Catalytic activity/Vol]21 U/ZSzfhef58-69Has [facility] HospitalComment on above:Performed By: #### CMP #### [facility] [address] [address] [address] Tg Levineon gap [Moles/Vol]13.3 mmol/LNormalThe [facility] Comment on above:Performed By: #### CMP #### [facility] [address] [address] [address] Tg FierroAST [Catalytic activity/Vol]14 U/LCritically cne16-17Whc [facility] HospitalCommymichigan medical center west branch on above:Performed By: #### CMP #### [facility] [address] [address] [address] Tg FierroBilirubin [Mass/Vol]0.5 mg/dLNormal0.2-1.0The [facility] Comment on above:Performed By: #### CMP #### [facility] [address] [address] [address] Tg FierroCalcium [Mass/Vol]9.5 mg/dLNormal8.5-10.1The [facility] Comment on above:Performed By: #### CMP #### [facility] [address] [address] [address] Tg FierroChloride [Moles/Vol]104 mmol/AVwwjqa16-598Qcw [facility] Comment on above:Performed By: #### CMP #### [facility] [address] [address] [address] Tg FierroCO2 [Moles/Vol]29.3 mmol/LOrwrib67.0-32.0The [facility] Comment on above:Performed By: #### CMP #### [facility] [address] [address] [address] Tg FierroCreatinine [Mass/Vol]0.93 mg/dLNormal0.55-1.02The [facility] HospitalComment on above:Performed By: #### CMP #### [facility] [address] [address] [address] Tg SandyGFR-AF LUXEMBOURGER>60Normal>=60The [facility] HospitalComment on above:Performed By: #### CMP #### [facility] [address] [address] [address] Tg SandyGFR-NON AF DUEMYRZT11 mL/min/1.49v1Zxpmktsovi low>=60The [facility] HospitalComment on above:Performed By: #### CMP #### [facility] [address] [address] [address] Tg FierroGlobulin (S) [Mass/Vol]3.2 g/dLNormalThe [facility] HospitalComment on above:Performed By: #### CMP #### [facility] [address] [address] [address] Tg FierroGlucose [Mass/Vol]186 mg/dLCritically zmld87-244Wme [facility] HospitalComment on above:Performed By: #### CMP #### [facility] [address] [address] [address] Tg FierroPotassium [Moles/Vol]4.6 mmol/LNormal3.5-5.1The [facility] Comment on above:Performed By: #### CMP #### [facility] [address] [address] [address] Tg FierroProtein [Mass/Vol]7.0 g/dLNormal6.4-8.2The [facility] Comment on above:Performed By: #### CMP #### [facility] [address] [address] [address] Tg FierroSodium [Moles/Vol]142 mmol/MNpvfji013-956Sbi [facility] Comment on above:Performed By: #### CMP #### [facility] [address] [address] [address] Tg FierroUrea nitrogen [Mass/Vol]15.0 mg/dLNormal7.0-18.0The [facility] HospitalComment on above:Performed By: #### CMP #### [facility] [address] [place] [address] Dr. Tg FierroUrea nitrogen/Creatinine [Mass ratio]16.1 mg/mgUK HealthcareCommymichigan medical center west branch on above:Performed By: #### CMP #### [facility] [address] [place] [address] Dr. Tg FierroSED RATE WESTERGRENon 80-59-5320PPI RATE9 mm/hrNormal<=30The [facility] HospitalComment on above:Performed By: #### CMP #### [facility] [address] [place] [address] Dr. Tg FierroPROTIMEon 89-22-4200JKJ Coag (PPP) [Relative time]1.94 {INR} NormalThe [facility] on above:Performed By: #### PT #### [facility] [address] [place] [address] Dr. Tg Cerda GUIDELINESSEE BELOWUK HealthcareComment on above:Result Comment: DESIRED INR: 2.0 - 3.0 CONDITIONS NOT LISTED BELOW 2.5 - 3.5 FOR PROSTHETIC HEART VALVE REPLACEMENT 2.5 - 3.5 RECURRENT THROMBOSIS Performed By: #### PT #### [facility] [address] [place] [address] Dr. Tg FierroPT Coag (PPP) [Time]19.8 sCritically high9.0-11.6The [facility] on above:Performed By: #### PT #### [facility] [address] [place] [address] Dr. Tg FierroC AUTO DIFFon 79-22-4318SQYQ #0.1 103/ulNormal0.0-0.1The [facility] HospitalCommymichigan medical center west branch on above:Performed By: #### PT #### [facility] [address] [place] [address] Dr. Tg FierroBasophils/100 WBC (Bld)0.7 %Normal0.2-2.0The [facility] Comment on above:Performed By: #### PT #### [facility] [address] [address] [address] Tg Dent #0.3 103/ulNormal0.0-0.7The [facility] HospitalComment on above: Performed By: #### PT #### [facility] [address] [place] [address] Dr. Tg Sandyosinophils/100 WBC (Bld)3.6 %Normal0.9-7.0The [facility] Comment on above:Performed By: #### PT #### [facility] [address] [place] [address] Dr. Tg Sandyrythrocyte distribution width (RBC) [Ratio]13.4 %Fmufjf64.0-15.0 The [facility] HospitalComment on above:Performed By: #### PT #### [facility] [address] [place] [address] Dr. Tg FierroHematocrit (Bld) [Volume fraction]38.4 %Jezyvy54.0-48.0The [facility] HospitalComment on above:Performed By: #### PT #### [facility] [address] [place] [address] Dr. Tg FierroHemoglobin (Bld) [Mass/Vol]12.7 g/jOHllopj33.0-16.0The [facility] HospitalComment on above:Performed By: #### PT #### [facility] [address] [place] [address] Dr. Tg Gee #0.05 10e3/ulCritically high0.00-0.03The [facility] Comment on above:Performed By: #### PT #### [facility] [address] [place] [address] Dr. Tg Gee %0.7 %Critically high0.0-0.5The [facility] HospitalComment on above:Performed By: #### PT #### [facility] [address] [place] [address] Dr. Tg SanchezMPH #2.6 103/ulNormal1.2-3.8The [facility] HospitalComment on above:Performed By: #### PT #### [facility] [address] [place] [address] Dr. Tg Sanchezmphocytes/100 WBC (Bld)34.2 %Cisoas77.5-60.0The [facility] HospitalComment on above:Performed By: #### PT #### [facility] [address] [place] [address] Dr. Tg TorrezUAL DIFF REQNONormalThe [facility] HospitalComment on above: Performed By: #### PT #### [facility] [address] [place] [address] Dr. Tg Clay (RBC) [Entitic mass]31.2 ywAtkteu14.7-34.0The [facility] HospitalComment on above:Performed By: #### PT #### [facility] [address] [place] [address] Dr. Tg Clay (RBC) [Mass/Vol]33.1 g/gCVezxzm25.9-35.2The [facility] HospitalComment on above:Performed By: #### PT #### [facility] [address] [place] [address] Dr. Tg Clay (RBC) [Entitic vol]94.3 tUEbbezp98.0-99.0The [facility] HospitalComment on above:Performed By: #### PT #### [facility] [address] [place] [address] Dr. Tg Siu #0.6 103/ulNormal0.3-0.8The [facility] HospitalComment on above:Performed By: #### PT #### [facility] [address] [place] [address] Dr. Tg Zafarocytes/100 WBC (Bld)8.1 %Normal1.7-12.0The [facility] Comment on above:Performed By: #### PT #### [facility] [address] [place] [address] Dr. Tg Blackwell #4.1 103/ulNormal1.4-6.5The [facility] HospitalComment on above:Performed By: #### PT #### [facility] [address] [address] [address] Tg FierroNeutrophils/100 WBC (Bld)52.7 %Suvwln33.0-75.0The [facility] [facility] HospitalComment on above:Performed By: #### PT #### [facility] [address] [place] [address] Dr. Tg FierroPlatelet mean volume (Bld) [Entitic vol]8.7 fLCritically low 9.5-13.5The [place] HospitalComment on above:Performed By: #### PT #### [facility] [address] [place] [address] Dr. Tg FierroPLT278 103/fvAtryfw591-017Yut [facility] on above: Performed By: #### PT #### [facility] [address] [place] [address] Dr. Tg FierroRBC4.07 106/ulCritically low4.20-5.40The [place] HospitalCommymichigan [facility] on above:Performed By: #### PT #### [facility] [address] [place] [address] Dr. Tg FierroWBC7.7 103/ulNormal4.0-11.0The [facility] on above: Performed By: #### PT #### [facility] [address] [place] [address] Dr. Tg FierroPROF 14(COMP METB)on 35-75-8120Xolbxpz [Mass/Vol]3.9 g/dLNormal 3.4-5.0The [place] HospitalCommymich[facility] on above:Performed By: #### CMP #### [facility] [address] [place] [address] Dr. Tg FierroAlbumin/Globulin [Mass ratio]1.4 {ratio}NormalThe [facility] on above:Performed By: #### CMP #### [facility] [address] [place] [address] Dr. Tg FergusonP [Catalytic activity/Vol]59 U/DRoootc76-032Kwl Neri HospitalComment on above:Performed By: #### CMP #### [facility] [address] [address] [address] Tg Carrillo [Catalytic activity/Vol]21 U/DZgmqzz52-87Bls [facility] HospitalComment on above:Performed By: #### CMP #### [facility] [address] [address] [address] Tg FierroAnion gap [Moles/Vol]10.8 mmol/LNormalThe [facility] Comment on above:Performed By: #### CMP #### [facility] [address] [address] [address] Tg FierroAST [Catalytic activity/Vol]9 U/LCritically skb63-73Kpl [facility] HospitalComment on above:Performed By: #### CMP #### [facility] [address] [address] [address] Tg FierroBilirubin [Mass/Vol]0.3 mg/dLNormal0.2-1.0[facility] Comment on above:Performed By: #### CMP #### [facility] [address] [address] [address] Tg FierroCalcium [Mass/Vol]9.1 mg/dLNormal8.5-10.1[facility] Comment on above:Performed By: #### CMP #### [facility] [address] [address] [address] Tg FierroChloride [Moles/Vol]104 mmol/GYqxqaj37-662Agy [facility] Comment on above:Performed By: #### CMP #### [facility] [address] [address] [address] Tg FierroCO2 [Moles/Vol]28.3 mmol/LUvblei14.0-32.0The [facility] Comment on above:Performed By: #### CMP #### [facility] [address] [address] [address] Tg FierroCreatinine [Mass/Vol]0.86 mg/dLNormal0.55-1.02The [facility] HospitalComment on above:Performed By: #### CMP #### [facility] [address] [address] [address] Tg SandyGFR-AF LUXEMBOURGER>60Normal>=60The [facility] HospitalComment on above:Performed By: #### CMP #### [facility] [address] [address] [address] Tg SandyGFR-NON AF LUXEMBOURGER>60Normal>=60The [facility] HospitalComment on above:Performed By: #### CMP #### [facility] [address] [address] [address] Tg FierroGlobulin (S) [Mass/Vol]2.7 g/dLNormalThe [facility] HospitalComment on above:Performed By: #### CMP #### [facility] [address] [address] [address] Tg FierroGlucose [Mass/Vol]120 mg/dLCritically esar29-567Lhc [facility] Hospitalment on above:Performed By: #### CMP #### [facility] [address] [place] [address] Dr. Tg FierroPotassium [Moles/Vol]4.1 mmol/LNormal3.5-5.1The [facility] Comment on above:Performed By: #### CMP #### [facility] [address] [place] [address] Dr. Tg FierroProtein [Mass/Vol]6.6 g/dLNormal6.4-8.2The [facility] Comment on above:Performed By: #### CMP #### [facility] [address] [address] [address] Tg FierroSodium [Moles/Vol]139 mmol/KLrizph348-546Ktt [facility] Comment on above:Performed By: #### CMP #### [facility] [address] [place] [address] Dr. Tg FierroUrea nitrogen [Mass/Vol]13.0 mg/dLNormal7.0-18.0The [facility] HospitalComment on above:Performed By: #### CMP #### [facility] [address] [place] [address] Dr. Tg Bates nitrogen/Creatinine [Mass ratio]15.1 mg/mgNoMarietta Memorial HospitalCommymichigan medical center west branch on above:Performed By: #### CMP #### [facility] [address] [place] [address] Dr. Tg WoodyIMEsanchez [id number] Coag (PPP) [Relative time]1.35 {INR} NormalCleveland Clinic Akron GeneralCommymichigan medical center [facility] on above:Performed By: #### PT #### [facility] [address] [place] [address] Dr. Tg Cerda GUIDELINESSEE [facility] BeachwoodCommymich[facility] medical [facility] on above:Result Comment: DESIRED INR: 2.0 - 3.0 CONDITIONS NOT LISTED BELOW 2.5 - 3.5 FOR PROSTHETIC HEART VALVE REPLACEMENT 2.5 - 3.5 RECURRENT THROMBOSIS Performed By: #### PT #### [facility] [address] [place] [address] Dr. Tg John Coag (PPP) [Time]14.1 sCritically high9.0-11.6The [facility] HospitalCommymich[facility] on above:Performed By: #### PT #### [facility] [address] [place] [address] Dr. Tg Garber RATE [facility]ITALREN 82-39-7714ZMC RATE8 mm/hrNormal<=30[facility] on above:Performed By: #### CMP #### [facility] [address] [place] [address] Dr. Tg WoodyIMEsanchez [id number] Coag (PPP) [Relative time]1.23 {INR} NormalAv[facility] Health System [facility] on above:Performed By: #### PT #### [facility] [address] [place] [address] Dr. Tg Cerda GUIDELINESSEE [facility] BeachwoodCommymich[facility] on above:Result Comment: DESIRED INR: 2.0 - 3.0 CONDITIONS NOT LISTED BELOW 2.5 - 3.5 FOR PROSTHETIC HEART VALVE REPLACEMENT 2.5 - 3.5 RECURRENT THROMBOSIS Performed By: #### PT #### [facility] [address] [place], [place] [address] [address] Tg John Coag (PPP) [Time]12.9 sCritically high9.0-11.6The [facility] HospitalComment on above:Performed By: #### PT #### [facility] [address] [place], [place] [address] Dr. Mas ChangECHOCARDIO M/2D COMPLETEon [id number] M/2D COMPLETE Patient: WILDA SEN Exam Date: 09/02/2022 : 1945 Gender:F Ordering : DR JAYME PEREZ . Admission #: [id number] Family : Order #: [id number] CLICK HERE TO VIEW EXAM ECHOCARDIOGRAM REPORT [...] by: Dez Bender M.D. on 09/03/2022 at 17:25UK HealthcareGLYCOHEMOGLOBIN A1Con [id number] RECOMMENDATIONSEE BELOWUK HealthcareComment on above:Result Comment: ADA RECOMMENDED LIMIT 4.0 - 6.0 ADA THERAPEUTIC TARGET < 7.0 ACTION SUGGESTED > 7.0Performed By: #### A1C #### [facility] [address] [place] [address] Dr. Tg FierroGlucose [Mass/Vol]148 mg/dLNoMarietta Memorial HospitalComment on above:Performed By: #### A1C #### [facility] [address] [place] [address] Dr. Tg FierroHbA1c (Bld) [Mass fraction]6.8 %Critically high4.5-6.2The [facility] HospitalComment on above:Performed By: #### A1C #### [facility] [address] [place] [address] Dr. Tg Richards AUTO DIFFon [id number] #0.1 103/ulNormal0.0-0.1The [facility] HospitalComment on above:Performed By: #### CBC #### [facility] [address] [place] [address] Dr. Tg FierroBasophils/100 WBC (Bld)0.8 %Normal0.2-2.0The [facility] Comment on above:Performed By: #### CBC #### [facility] [address] [place] [address] Dr. Tg Dent #0.5 103/ulNormal0.0-0.7The [facility] HospitalComment on above: Performed By: #### CBC #### [facility] [address] [address] [address] Tg Sandyosinophils/100 WBC (Bld)7.3 %Critically high0.9-7.0The [facility] Hospitalment on above:Performed By: #### CBC #### [facility] [address] [place] [address] Dr. Tg Sandyrythrocyte distribution width (RBC) [Ratio]13.4 %Fyfstf89.0-15.0 The [facility] HospitalComment on above:Performed By: #### CBC #### [facility] [address] [place] [address] Dr. Tg FierroHematocrit (Bld) [Volume fraction]37.1 %Lldhkh09.0-48.0The [facility] HospitalComment on above:Performed By: #### CBC #### [facility] [address] [place] [address] Dr. Tg FierroHemoglobin (Bld) [Mass/Vol]12.9 g/pFMbahjo04.0-16.0The [facility] Hospitalment on above:Performed By: #### CBC #### [facility] [address] [place] [address] Dr. Tg Gee #0.03 10e3/ulNormal0.00-0.03The [facility] on above:Performed By: #### CBC #### [facility] [address] [place] [address] Dr. Tg Gee %0.5 %Normal0.0-0.5The [facility] on above: Performed By: #### CBC #### [facility] [address] [place] [address] Dr. Tg ArmstrongH #2.3 103/ulNormal1.2-3.8The [place] HospitalCommymichigan medical [facility] on above:Performed By: #### CBC #### [facility] [address] [place] [address] Dr. Tg Sanchezmphocytes/100 WBC (Bld)34.9 %Gpaeog39.5-60.0The [facility] Park HospitalComment on above:Performed By: #### CBC #### [facility] [address] [address] [address] Tg Colon DIFF REQNONormalThe [facility] HospitalComment on above: Performed By: #### CBC #### [facility] [address] [address] [address] Tg Clay (RBC) [Entitic mass]31.0 kkHsxphr05.7-34.0The [facility] HospitalComment on above:Performed By: #### CBC #### [facility] [address] [address] [address] Tg Clay (RBC) [Mass/Vol]34.8 g/pPOslbyv73.9-35.2The [facility] HospitalComment on above:Performed By: #### CBC #### [facility] [address] [place] [address] Dr. Tg Clay (RBC) [Entitic vol]89.2 sRJyzqxr15.0-99.0The [facility] HospitalComment on above:Performed By: #### CBC #### [facility] [address] [place] [address] Dr. Tg Siu #0.4 103/ulNormal0.3-0.8The [facility] Hospitalment on above:Performed By: #### CBC #### [facility] [address] [place] [address] Dr. Tg Zafarocytes/100 WBC (Bld)6.1 %Normal1.7-12.0The [facility] Comment on above:Performed By: #### CBC #### [facility] [address] [address] [address] Tg Blackwell #3.3 103/ulNormal1.4-6.5The [facility] Hospitalment on above:Performed By: #### CBC #### [facility] [address] [place] [address] Dr. Tg Chuutrophils/100 WBC (Bld)50.4 %Tgsvzm93.0-75.0The Neri HospitalComment on above:Performed By: #### CBC #### [facility] [address] [address] [address] Tg Augustelet mean volume (Bld) [Entitic vol]8.6 fLCritically low 9.5-13.5The [facility] HospitalComment on above:Performed By: #### CBC #### [facility] [address] [address] [address] Tg FierroPLT336 103/heNvsdvh060-410Wbd [facility] HospitalComment on above: Performed By: #### CBC #### [facility] [address] [place] [address] Dr. Tg FierroRBC4.16 106/ulCritically low4.20-5.40The [facility] HospitalComment on above:Performed By: #### CBC #### [facility] [address] [place] [address] Dr. Tg FierroWBC6.4 103/ulNormal4.0-11.0The [facility] HospitalComment on above: Performed By: #### CBC #### [facility] [address] [place] [address] Dr. Tg FierroPROF 14(COMP METB)on 97-63-9358Eimocgt [Mass/Vol]3.9 g/dLNormal 3.4-5.0The [facility] HospitalComment on above:Performed By: #### PT #### [facility] [address] [place] [address] Dr. Tg FierroAlbumin/Globulin [Mass ratio]1.3 {ratio}NormalThe [facility] HospitalCommymich[facility] medical [facility] on above:Performed By: #### PT #### [facility] [address] [place] [address] Dr. Tg Pete [Catalytic activity/Vol]60 U/PVicmfu40-538Nmr [facility] Hospitalment on above:Performed By: #### PT #### [facility] [address] [place] [address] Dr. Tg Carrillo [Catalytic activity/Vol]21 U/WSlomdw94-43Krq [facility] HospitalComment on above:Performed By: #### PT #### [facility] [address] [address] [address] Tg Biswas gap [Moles/Vol]15.2 mmol/LNormalThe [facility] Comment on above:Performed By: #### PT #### [facility] [address] [address] [address] Tg FierroAST [Catalytic activity/Vol]14 U/LCritically ahd94-18Lyz [facility] HospitalComment on above:Performed By: #### PT #### [facility] [address] [address] [address] Tg FierroBilirubin [Mass/Vol]0.4 mg/dLNormal0.2-1.0The [facility] Comment on above:Performed By: #### PT #### [facility] [address] [address] [address] Tg FierroCalcium [Mass/Vol]9.3 mg/dLNormal8.5-10.1[facility] Comment on above:Performed By: #### PT #### [facility] [address] [address] [address] Tg FierroChloride [Moles/Vol]102 mmol/JQnvmvs12-689Wiu [facility] Comment on above:Performed By: #### PT #### [facility] [address] [address] [address] Tg FierroCO2 [Moles/Vol]26.8 mmol/EJqsweo31.0-32.0The [facility] Comment on above:Performed By: #### PT #### [facility] [address] [address] [address] Tg FierroCreatinine [Mass/Vol]0.74 mg/dLNormal0.55-1.02The [facility] HospitalComment on above:Performed By: #### PT #### [facility] [address] [address] [address] Mas ChangEGFR-AF LUXEMBOURGER>60Normal>=60The [facility]eri HospitalComment on above:Performed By: #### PT #### [facility] [address] [address] [address] Tg SandyGFR-NON AF LUXEMBOURGER>60Normal>=60The [facility] HospitalComment on above:Performed By: #### PT #### [facility] [address] [address] [address] Tg FierroGlobulin (S) [Mass/Vol]3.1 g/dLNormSelect Medical Specialty Hospital - TrumbullComment on above:Performed By: #### PT #### [facility] [address] [address] [address] Tg FierroGlucose [Mass/Vol]148 mg/dLCritically jysn28-316Ktj [facility] HospitalComment on above:Performed By: #### PT #### [facility] [address] [place] [address] Dr. Tg FierroPotassium [Moles/Vol]4.0 mmol/LNormal3.5-5.1The [facility] Comment on above:Performed By: #### PT #### [facility] [address] [address] [address] Tg FierroProtein [Mass/Vol]7.0 g/dLNormal6.4-8.2The [facility] Comment on above:Performed By: #### PT #### [facility] [address] [place] [address] Dr. Tg FierroSodium [Moles/Vol]140 mmol/MOeyruh636-335Qgs [facility] Comment on above:Performed By: #### PT #### [facility] [address] [address] [address] Tg FierroUrea nitrogen [Mass/Vol]12.0 mg/dLNormal7.0-18.0The [facility] HospitalComment on above:Performed By: #### PT #### [facility] [address] [address] [address] Tg FierroUrea nitrogen/Creatinine [Mass ratio]16.2 mg/mgNormalThSelect Medical TriHealth Rehabilitation HospitalComment on above:Performed By: #### PT #### [facility] [address] [address] [address] Tg FierroSEMagalie RATE WESTERGRENon 05-92-6479KRI RATE30 mm/hrNormal<=30The [facility] HospitalComment on above:Performed By: #### SEDR #### [facility] [address] [address] [address] Tg FierroC AUTO DIFFon [id number] #0.1 103/ulNormal0.0-0.1The [facility] HospitalComment on above:Performed By: #### CBC #### [facility] [address] [place] [address] Dr. Tg FierroBasophils/100 WBC (Bld)0.6 %Normal0.2-2.0[facility] Comment on above:Performed By: #### CBC #### [facility] [address] [place] [address] Dr. Tg Dent #0.2 103/ulNormal0.0-0.7The [facility] HospitalComment on above: Performed By: #### CBC #### [facility] [address] [place] [address] Dr. Tg Sandyosinophils/100 WBC (Bld)3.1 %Normal0.9-7.0[facility] Comment on above:Performed By: #### CBC #### [facility] [address] [place] [address] Dr. Tg Sandyrythrocyte distribution width (RBC) [Ratio]13.6 %Kejphj05.0-15.0 The [facility] HospitalComment on above:Performed By: #### CBC #### [facility] [address] [place] [address] Dr. Tg FierroHematocrit (Bld) [Volume fraction]42.3 %Woahsf05.0-48.0The [facility] Hospitalment on above:Performed By: #### CBC #### [facility] [address] [place] [address] Dr. Tg FierroHemoglobin (Bld) [Mass/Vol]13.2 g/cGWabaqj49.0-16.0The [facility] HospitalComment on above:Performed By: #### CBC #### [facility] [address] [place] [address] Dr. Tg Gee #0.04 10e3/ulCritically high0.00-0.03The [facility] Comment on above:Performed By: #### CBC #### [facility] [address] [place] [address] Dr. Tg Gee %0.5 %Normal0.0-0.5The [facility] HospitalComment on above: Performed By: #### CBC #### [facility] [address] [place] [address] Dr. Tg Kate #2.5 103/ulNormal1.2-3.8The [facility] HospitalComment on above:Performed By: #### CBC #### [facility] [address] [place] [address] Dr. Tg Armstronghocytes/100 WBC (Bld)31.6 %Sfzjyn39.5-60.0The [facility] HospitalComment on above:Performed By: #### CBC #### [facility] [address] [place] [address] Dr. Tg Colon DIFF REQNONormalThe [facility] HospitalComment on above: Performed By: #### CBC #### [facility] [address] [place] [address] Dr. Tg Clay (RBC) [Entitic mass]30.3 beNlmtqo15.7-34.0The [facility] HospitalComment on above:Performed By: #### CBC #### [facility] [address] [place] [address] Dr. Tg Clay (RBC) [Mass/Vol]31.2 g/iDMwhjwv58.9-35.2The [facility] HospitalComment on above:Performed By: #### CBC #### [facility] [address] [place] [address] Dr. Tg Clay (RBC) [Entitic vol]97.0 mBRdpojz48.0-99.0The [facility] HospitalComment on above:Performed By: #### CBC #### [facility] [address] [place] [address] Dr. Tg Siu #0.5 103/ulNormal0.3-0.8The [facility] HospitalComment on above:Performed By: #### CBC #### [facility] [address] [place] [address] Dr. Tg Zafarocytes/100 WBC (Bld)6.3 %Normal1.7-12.0The [facility] Comment on above:Performed By: #### CBC #### [facility] [address] [place] [address] Dr. Tg Blackwell #4.5 103/ulNormal1.4-6.5The [facility] HospitalComment on above:Performed By: #### CBC #### [facility] [address] [place] [address] Dr. Tg Chuutrophils/100 WBC (Bld)57.9 %Zjxwcp95.0-75.0The [facility] HospitalComment on above:Performed By: #### CBC #### [facility] [address] [place] [address] Dr. Tg Rodrigues mean volume (Bld) [Entitic vol]8.6 fLCritically low 9.5-13.5The [facility] HospitalComment on above:Performed By: #### CBC #### [facility] [address] [place] [address] Dr. Tg FierroPLT295 103/fxUldgua584-137Jmt [facility] HospitalComment on above: Performed By: #### CBC #### [facility] [address] [place] [address] Dr. Tg FierroRBC4.36 106/ulNormal4.20-5.40The [facility] HospitalComment on above:Performed By: #### CBC #### [facility] [address] [place] [address] Dr. Tg FierroWBC7.8 103/ulNormal4.0-11.0The [facility] HospitalComment on above: Performed By: #### CBC #### [facility] [address] [place] [address] Dr. Tg FierroPROF 14(COMP METB)on 76-02-4273Rqdudnf [Mass/Vol]4.5 g/dLNormal 3.4-5.0The [facility] HospitalComment on above:Performed By: #### CMP #### [facility] [address] [place] [address] Dr. Tg FierroAlbumin/Globulin [Mass ratio]1.5 {ratio}NormalThe [facility] HospitalComment on above:Performed By: #### CMP #### [facility] [address] [place] [address] Dr. Tg FergusonP [Catalytic activity/Vol]62 U/RIaueqs21-158Occ [facility] HospitalComment on above:Performed By: #### CMP #### [facility] [address] [place] [address] Dr. Tg FergusonT [Catalytic activity/Vol]25 U/LVnspgu36-10Xel [facility] HospitalComment on above:Performed By: #### CMP #### [facility] [address] [place] [address] Dr. Tg Biswas gap [Moles/Vol]10.6 mmol/LNormalThe [facility] Comment on above:Performed By: #### CMP #### [facility] [address] [place] [address] Dr. Tg FierroAST [Catalytic activity/Vol]12 U/LCritically bgk50-65Asm [facility] HospitalComment on above:Performed By: #### CMP #### [facility] [address] [place] [address] Dr. Tg FierroBilirubin [Mass/Vol]0.5 mg/dLNormal0.2-1.0The [facility] Comment on above:Performed By: #### CMP #### [facility] [address] [place] [address] Dr. Tg FierroCalcium [Mass/Vol]9.8 mg/dLNormal8.5-10.1The [facility] Comment on above:Performed By: #### CMP #### [facility] [address] [address] [address] Tg FierroChloride [Moles/Vol]102 mmol/KXdglet63-941Udg [facility] Comment on above:Performed By: #### CMP #### [facility] [address] [address] [address] Tg FierroCO2 [Moles/Vol]31.8 mmol/MVlgjrv16.0-32.0The [facility] Comment on above:Performed By: #### CMP #### [facility] [address] [place] [address] Dr. Tg FierroCreatinine [Mass/Vol]0.88 mg/dLNormal0.55-1.02The [facility] HospitalComment on above:Performed By: #### CMP #### [facility] [address] [place] [address] Dr. Mas ChangEGFR-AF LUXEMBOURGER>60Normal>=60The [facility] HospitalComment on above:Performed By: #### CMP #### [facility] [address] [place] [address] Dr. Tg SandyGFR-NON AF LUXEMBOURGER>60Normal>=60The [facility] HospitalComment on above:Performed By: #### CMP #### [facility] [address] [address] [address] Tg FierroGlobulin (S) [Mass/Vol]3.1 g/dLNormalThe [facility] HospitalComment on above:Performed By: #### CMP #### [facility] [address] [address] [address] Tg FierroGlucose [Mass/Vol]187 mg/dLCritically krpy98-343Rcl [facility] HospitalComment on above:Performed By: #### CMP #### [facility] [address] [place] [address] Dr. Tg FierroPotassium [Moles/Vol]4.4 mmol/LNormal3.5-5.1The [facility] Comment on above:Performed By: #### CMP #### [facility] [address] [place] [address] Dr. Tg FierroProtein [Mass/Vol]7.6 g/dLNormal6.4-8.2[facility] Comment on above:Performed By: #### CMP #### [facility] [address] [place] [address] Dr. Tg Kilgoredium [Moles/Vol]140 mmol/RKfkgpu138-122Aoh [facility] Comment on above:Performed By: #### CMP #### [facility] [address] [place] [address] Dr. Tg Bates nitrogen [Mass/Vol]14.0 mg/dLNormal7.0-18.0[facility]Comment on above:Performed By: #### CMP #### [facility] [address] [place] [address] Dr. Tg Bates nitrogen/Creatinine [Mass ratio]15.9 mg/mgNormalThe [facility] HospitalComment on above:Performed By: #### CMP #### [facility] [address] [place] [address] Dr. Tg Garber RATE WESTERGRENon 67-55-5834ONO RATE5 mm/hrNormal<=30[facility] GeneralComment on above:Performed By: #### SEDR #### [facility] [address] [place] [address] Dr. Tg Richards AUTO DIFFon 52-09-9631WXBH #0.0 103/ulNormal0.0-0.1The [facility] HospitalComment on above:Performed By: #### PT #### [facility] [address] [place] [address] Dr. Tg Georgephils/100 WBC (Bld)0.6 %Normal0.2-2.0[facility] Comment on above:Performed By: #### PT #### [facility] [address] [place] [address] Dr. Tg Dent #0.4 103/ulNormal0.0-0.7The [facility] HospitalComment on above: Performed By: #### PT #### [facility] [address] [place] [address] Dr. Tg Sandyosinophils/100 WBC (Bld)5.4 %Normal0.9-7.0The [facility] Comment on above:Performed By: #### PT #### [facility] [address] [place] [address] Dr. Tg Sandyrythrocyte distribution width (RBC) [Ratio]13.5 %Oolnis45.0-15.0 The [facility] HospitalComment on above:Performed By: #### PT #### [facility] [address] [place] [address] Dr. Tg FierroHematocrit (Bld) [Volume fraction]39.4 %Ogdgxh91.0-48.0The [facility] HospitalComment on above:Performed By: #### PT #### [facility] [address] [place] [address] Dr. Tg FierroHemoglobin (Bld) [Mass/Vol]12.8 g/eZUkgmds92.0-16.0The [facility] HospitalComment on above:Performed By: #### PT #### [facility] [address] [place] [address] Dr. Tg Gee #0.02 10e3/ulNormal0.00-0.03The [facility] HospitalComment on above:Performed By: #### PT #### [facility] [address] [place] [address] Dr. Tg Gee %0.3 %Normal0.0-0.5The [facility] HospitalComment on above: Performed By: #### PT #### [facility] [address] [place] [address] Dr. Tg ArmstrongH #2.4 103/ulNormal1.2-3.8The [facility] HospitalComment on above:Performed By: #### PT #### [facility] [address] [place] [address] Dr. Tg Sanchezmphocytes/100 WBC (Bld)36.2 %Jtycyp66.5-60.0The [facility] HospitalComment on above:Performed By: #### PT #### [facility] [address] [place] [address] Dr. Tg TorrezUAL DIFF REQNONormalThe [facility] HospitalComment on above: Performed By: #### PT #### [facility] [address] [place] [address] Dr. Tg Clay (RBC) [Entitic mass]31.0 suKyarqm10.7-34.0The [facility] HospitalComment on above:Performed By: #### PT #### [facility] [address] [place] [address] Dr. Tg Clay (RBC) [Mass/Vol]32.5 g/jLDabblf33.9-35.2The [facility] HospitalComment on above:Performed By: #### PT #### [facility] [address] [place] [address] Dr. Tg Clay (RBC) [Entitic vol]95.4 aHFdqafv13.0-99.0The [facility] HospitalComment on above:Performed By: #### PT #### [facility] [address] [place] [address] Dr. Tg Siu #0.5 103/ulNormal0.3-0.8The [facility] HospitalComment on above:Performed By: #### PT #### [facility] [address] [place] [address] Dr. Tg Zafarocytes/100 WBC (Bld)8.0 %Normal1.7-12.0The [facility] Comment on above:Performed By: #### PT #### [facility] [address] [place] [address] Dr. Tg Blackwell #3.3 103/ulNormal1.4-6.5The [facility] HospitalComment on above:Performed By: #### PT #### [facility] [address] [address] [address] Tg Chuutrophils/100 WBC (Bld)49.5 %Hurdqx41.0-75.0The [facility] on above:Performed By: #### PT #### [facility] [address] [address] [address] Tg FierroPlatelet mean volume (Bld) [Entitic vol]8.7 fLCritically low 9.5-13.5The [facility] HospitalComment on above:Performed By: #### PT #### [facility] [address] [place] [address] Dr. Tg FierroPLT276 103/alHuycfa975-606Sjk [facility] on above: Performed By: #### PT #### [facility] [address] [place] [address] Dr. Tg FierroRBC4.13 106/ulCritically low4.20-5.40The [facility] on above:Performed By: #### PT #### [facility] [address] [place] [address] Dr. Tg FierroWBC6.7 103/ulNormal4.0-11.0The [facility] on above: Performed By: #### PT #### [facility] [address] [place] [address] Dr. Tg FierroGLYCOHEMOGLOBIN A1Con 95-03-7279UEK RECOMMENDATIONSEE BELOWNormal The [facility] HospitalCommymichigan medical [facility] on above:Result Comment: ADA RECOMMENDED LIMIT 4.0 - 6.0 ADA THERAPEUTIC TARGET < 7.0 ACTION SUGGESTED > 7.0Performed By: #### A1C #### [facility] [address] [place] [address] Dr. Tg FierroGlucose [Mass/Vol]151 mg/dLNormalThSelect Medical TriHealth Rehabilitation HospitalCommymichigan medical center west branch on above:Performed By: #### A1C #### [facility] [address] [place] [address] Dr. Tg FierroHbA1c (Bld) [Mass fraction]6.9 %Critically high4.5-6.2The [facility] HospitalComment on above:Performed By: #### A1C #### [facility] [address] [address] [address] Tg FierroPROF 14(COMP METB)on 45-46-1667Exbhhxg [Mass/Vol]3.8 g/dLNormal 3.4-5.0The [facility] HospitalComment on above:Performed By: #### PT #### [facility] [address] [place] [address] Dr. Tg FierroAlbumin/Globulin [Mass ratio]1.3 {ratio}NormalThe [facility] HospitalComment on above:Performed By: #### PT #### [facility] [address] [place] [address] Dr. Tg FergusonP [Catalytic activity/Vol]43 U/LCritically exd16-813Qyy [facility] HospitalComment on above:Performed By: #### PT #### [facility] [address] [place] [address] Dr. Tg Carrillo [Catalytic activity/Vol]19 U/IAelynl66-64Nhp [facility] HospitalComment on above:Performed By: #### PT #### [facility] [address] [place] [address] Dr. Tg Biswas gap [Moles/Vol]13.7 mmol/LNormalThe [facility] Comment on above:Performed By: #### PT #### [facility] [address] [place] [address] Dr. Tg FierroAST [Catalytic activity/Vol]11 U/LCritically jzk91-70Xev [facility] HospitalComment on above:Performed By: #### PT #### [facility] [address] [place] [address] Dr. Tg FierroBilirubin [Mass/Vol]0.4 mg/dLNormal0.2-1.0The [facility] Comment on above:Performed By: #### PT #### [facility] [address] [place] [address] Dr. Tg FierroCalcium [Mass/Vol]9.1 mg/dLNormal8.5-10.1[facility] Comment on above:Performed By: #### PT #### [facility] [address] [address] [address] Tg FierroChloride [Moles/Vol]104 mmol/JXgekdy99-675Wfy [facility] Comment on above:Performed By: #### PT #### [facility] [address] [address] [address] Tg FierroCO2 [Moles/Vol]28.5 mmol/YEhkkjg22.0-32.0The [facility] Comment on above:Performed By: #### PT #### [facility] [address] [address] [address] Tg FierroCreatinine [Mass/Vol]0.77 mg/dLNormal0.55-1.02[facility] GeneralComment on above:Performed By: #### PT #### [facility] [address] [address] [address] Tg SandyGFR-AF LUXEMBOURGER>60Normal>=60The [facility] HospitalComment on above:Performed By: #### PT #### [facility] [address] [address] [address] Tg SandyGFR-NON AF LUXEMBOURGER>60Normal>=60The [facility] HospitalComment on above:Performed By: #### PT #### [facility] [address] [address] [address] Tg FierroGlobulin (S) [Mass/Vol]3.0 g/dLNormalThe [facility] HospitalComment on above:Performed By: #### PT #### [facility] [address] [address] [address] Tg FierroGlucose [Mass/Vol]124 mg/dLCritically kodi90-830Zli [facility] HospitalComment on above:Performed By: #### PT #### [facility] [address] [address] [address] Tg FierroPotassium [Moles/Vol]4.2 mmol/LNormal3.5-5.1[facility] Comment on above:Performed By: #### PT #### [facility] [address] [address] [address] Tg FierroProtein [Mass/Vol]6.8 g/dLNormal6.4-8.2The [facility] Comment on above:Performed By: #### PT #### [facility] [address] [address] [address] Tg FierroSodium [Moles/Vol]142 mmol/JLifxyx296-701Kne [facility] Comment on above:Performed By: #### PT #### [facility] [address] [address] [address] Tg FierroUrea nitrogen [Mass/Vol]12.0 mg/dLNormal7.0-18.0The [facility] HospitalComment on above:Performed By: #### PT #### [facility] [address] [address] [address] Tg Bates nitrogen/Creatinine [Mass ratio]15.6 mg/mgNormalThe [facility] HospitalComment on above:Performed By: #### PT #### [facility] [address] [address] [address] Tg Garber [facility]ITALR[facility] 54-24-2856LDB RATE8 mm/hrNormal<=30The [facility] HospitalComment on above:Performed By: #### CMP #### [facility] [address] [address] [address] Tg Almaraz Quick Testingon 95-43-1119DphrnoAheowslrXmzxa [employer] Other Vital Signs Date TimeVital SignValuePerforming ArriwoxkdGisrxcua50-20-7743 15:00-0400 Diastolic blood omkrjhcd87 mm[Hg]Jayme Perez MD Work Phone: [facility]08-04-2025 15:00-0400 Heart rate81 /Ramya Perez MD Work Phone: [facility]08-04-2025 15:00-0400 Respiratory rate16 /Ramya Perez MD Work Phone: [phone])[facility] [place], [place] 2177108-04-2025 15:00-0400 SaO2% (BldA) [Mass fraction]98 %Jayme Perez MD Work Phone: [phone] [place], [place] 5393608-04-2025 15:00-0400 Systolic blood mm[Hg]Jayme Perez MD Work Phone: [phone] [place], [place] 5393608-04-2025 13:03-0400 Body .02 Dawson Perez MD Work Phone: [phone])[address] [place], [place] 5393608-04-2025 13:03-0400 Body dxbvyfotfzd77 [degF]Jayme Perez MD Work Phone: [phone])[address] [place], [place] 5393608-04-2025 13:03-0400 Body avapsk11.34 kgJayme Perez MD Work Phone: [phone])[address] [place], [place] 5393606-26-2025 11:39-0400 Body Dawson Perez MD Work Phone: [phone])[address] [place], [place] 3574406-26-2025 11:39-0400Body mass index (BMI) [Ratio]22.5 kg/u1YnxnpfJayme Perez MD Work Phone: [phone])[address] [place], [place] 3574406-26-2025 11:39-0400Body .61 kgJayme Perez MD Work Phone: 1(735)[address] [place], [place] 3574406-11-2025 11:35-0400Body xalhqj831 cm Jayme Perez MD Work Phone: [phone] [place], [place] 3574406-11-2025 11:35-0400Body mass index (BMI) [Ratio]22.5 kg/u7ByzmwfaJyme Perez MD Work Phone: 1(851)[address] [place], [place] 3574406-11-2025 11:35-0400Body wtkmux92.61 kgJayme Perez MD Work Phone: [phone])[address] [place], [place] 3574404-24-2025 13:54-0400Body uptqst406 cm Jayme Perez MD Work Phone: [facility]Gvnnwosbbt70-95-5096 13:54-0400Body mass index (BMI) [Ratio]22.5 kg/w4VmurrpJayme Perez MD Work Phone: [facility] HospitalHeihlnkdhw54-09-5951 13:54-0400Body veuzix42.61 kgJayme Perez MD Work Phone: [phone] HospitalDqdgolivmo63-10-2095 13:54-0400Diastolic blood aurkxgzl76 mm[Hg]Jayme Perez MD Work Phone: [facility] HospitalXrpgqbdbjm59-57-5368 13:54-0400Heart atiu995 /min Jayme Perez MD Work Phone: [facility] HospitalEzfuryifur63-00-7565 13:54-3949ArH7% (BldA) [Mass fraction]99 %Jayme Perez MD Work Phone: [phone] HospitalEknwixitcy23-40-7061 13:54-0400Systolic blood mm[Hg]Jayme Perez MD Work Phone: [facility] HospitalIliksxvdvf83-89-7428 11:03-0500Diastolic blood jyewaozt64 mm[Hg]Eugenia JACKSON [facility] [place] 350772-30-2024 11:03-0500Heart rate77 /minEugenia JACKSON [facility] [place] 051372-30-2024 11:03-0500Systolic blood mm[Hg]Eugenia JACKSON [facility] [place] 350770-03-2024 14:16-0400Body cmEmanjit Perez MD Work Phone: [facility] HospitalFhwfmnbzvf79-66-0015 14:16-0400Body mass index (BMI) [Ratio]21.79 kg/n3FlsvdfJayme Perez MD Work Phone: [facility] HospitalVsobqauzla42-89-3758 14:16-0400Body zpjeir68.79 kgJayme Perez MD Work Phone: [facility] HospitalIojrfslpwf81-05-7394 14:16-0400Diastolic blood ghdcnmuj07 mm[Hg]Jayme Perez MD Work Phone: [facility] HospitalIrnukneezv13-40-1827 14:16-0400Heart rate87 /min Jayme Perez MD Work Phone: [facility] HospitalBwyorqliji44-74-4905 14:16-5843UiM5% (BldA) [Mass fraction]98 %Jayme Perez MD Work Phone: [facility] HospitalFyykluwivo55-62-1263 14:16-0400Systolic blood nbawcqml939 mm[Hg]Jayme Perez MD Work Phone: [facility] HospitalFwezvrfxlp54-62-5752 09:09-0400Body temperature 98.6 [degF]Eugenia JACKSON [facility]04-02-2024 09:09-0400Diastolic blood bblkxtyo03 mm[Hg]Eugenia JACKSON [facility]04-02-2024 09:09-0400Heart rate80 /minEugenia [employer] [facility]04-02-2024 09:09-0400Respiratory rate16 /minEugenia [employer] [facility]04-02-2024 09:09-0400Systolic blood ddvxquoe325 mm[Hg]Eugenia JACKSON [facility]01-31-2024 10:47-0500Blood [facility]UN[facility]01-31-2024 10:47-0500Diastolic blood qacasogl11 mm[Hg]Renato EATON [facility]01-31-2024 10:47-0500Heart rate82 /minPatrick EATON [facility]01-31-2024 10:47-0500Respiratory rate16 /minPatrick EATON [facility]01-31-2024 10:47-0500Systolic blood mm[Hg]Renato EATON [facility]01-25-2024 09:48-0500Body ixchko633 cmEmanjit Perez MD Work Phone: [facility] HospitalTsxwqzbjls02-71-9872 09:48-0500Body mass index (BMI) [Ratio]24.45 kg/a5XnbazxJayme Perez MD Work Phone: [facility] HospitalTeavbrfgrn03-11-8518 09:48-0500Body gilxoh14.6 kg Jayme Perez MD Work Phone: [facility] HospitalStaggewukr54-08-7915 09:48-0500Heart rate57 /min Jayme Perez MD Work Phone: [facility] HospitalMkwytjgdjy33-20-5298 09:48-4747HkE4% (BldA) [Mass fraction]98 %Jayme Perez MD Work Phone: [facility] HospitalJtgzmbuuww02-52-2876 09:20-0500Body hzfafv839.02 Kyaw Glover Other noWaggl Other 01-12-2024 09:20-0500Body mass index (BMI) [Ratio] 23.91 kg/u9XlegwLou Glover Other noKiddies Smilz [employer] Other 01-12-2024 09:20-0500Body jndbbiewfll31.7 [degF]Lou Glover Other noWaggl Other 01-12-2024 09:20-0500Body ortjik98.24 kgLou Glover Other noKiddies Smilz [employer] Other 01-12-2024 09:20-0500Diastolic blood liosetqu89 mm[Hg] Lou Glover Other HOLLR [employer] Other 01-12-2024 09:20-0500Respiratory rate18 /minLou Glover Other [place] [employer] Other 01-12-2024 09:20-6986SdF1% (BldA) [Mass fraction]96 % Lou Glover Other [place] [employer] Other 01-12-2024 09:20-0500Systolic blood bgxkfhec304 mm[Hg] Lou Glover Other [employer] Other 09-13-2023 13:15-0400Body .02 cmMD Jayme Perez Work Phone: [facility]09-13-2023 13:15-0400 Body uoarfshxbbj50.2 [degF]MD Jayme Perez Work Phone: [facility]09-13-2023 13:15-0400 Body uqcxxm11 kgMD Jayme Perez Work Phone: [facility]09-13-2023 13:15-0400 Diastolic blood eqdcwtao31 mm[Hg]MD Jayme Perez Work Phone: [facility]09-13-2023 13:15-0400 Heart rate87 /minMD Jayme Perez Work Phone: [facility]09-13-2023 13:15-0400 Respiratory rate16 /minMD Jayme Perez Work Phone: [facility]09-13-2023 13:15-0400 SaO2% (BldA) [Mass fraction]97 %MD Jayme Perez Work Phone: [facility]09-13-2023 13:15-0400 Systolic blood vytkwibh179 mm[Hg]MD Jayme Perez Work Phone: [facility]11-08-2021 13:15-0500 Body yngysp331.02 cmSmundojefferson Baker Other [place] Other 11-08-2021 13:15-0500Body mass index (BMI) [Ratio] 23.91 kg/a7TyzmbadvjAstrid Baker Other [place] Other 11-08-2021 13:15-0500Body xlbtfaedxpc67.3 [degF] Astrid Baker Other [place] Other 11-08-2021 13:15-0500Body ugpofb05.24 kgStyeyo Baker Other [place] Other 11-08-2021 13:15-5300NeU8% (BldA) [Mass fraction]94 % Astridjefferson Baker Other noWaggl Other Encounters Encounter DateEncounter TypeCare ProviderFacilityStart: 04-19-2025 End: 53-88-8299Nqttbegkk Result Natasha Perez MD Work Phone: NOW[facility] External Department UnsolicitedStart: 04-19-2025 End: 42-14-6089Cxkfpilmz Result Natasha Perez MD Work Phone: noms External Department UnsolicitedStart: 04-05-2025 End: 06-63-3392Jrrleuejr Result EncounterEdganesh Perez MD Work Phone: NOTX External Department UnsolicitedStart: 04-05-2025 End: 50-73-9489Mtsqfnjpc Result EncounterEdganesh Perez MD Work Phone: NOKD External Department UnsolicitedStart: 03-08-2025 End: 14-44-2049Pqwpvymud Result Natasha Perez MD Work Phone: noms External Department UnsolicitedStart: 03-08-2025 End: 62-40-9278Qneihtgle Result Natasha Perez MD Work Phone: noms External Department UnsolicitedStart: 02-14-2025 End: 62-31-7671Wzhexwrcc to same day surgery [place] Venegas MD-[facility]Start: 02-14-2025 End: 35-31-0947qaqyvlibdwVrnuwa J Hemeyer MD Work Phone: [facility] Work Phone: Start: 02-14-2025 End: 07-20-5527xwdccwplpeZdklvzc P COOKFacility:CD:[id number]: 02-11-2025 End: 59-12-9649Kazthaj encounter procedureAurora Bay ENGINEERING SCIENTIST-BC -Electrodiagnostics Work Phone: Start: 02-11-2025 End: 09-95-3285bhhmhnpotzByirqc J Hemeyer MD Work Phone: [facility] Work Phone: Start: 02-08-2025 End: 16-83-0133Wojmemgux Natasha Perez MD Work Phone: NO67 [address]rez StreetComment on above:Med Change RequestStart: 02-08-2025 End: 83-35-7265Kawyic outpatient visit 25 minutesEdganesh Perez MD Work Phone: [phone] Wood StreetComment on above:Kidney stone on left side (Primary Dx); Hospital discharge follow-upStart: 02-08-2025 End: 97-03-8117utulfoayyjZYEXTKStewart Epps AvailableStart: 02-04-2025 End: 19-34-1840Uostlzvpx Result EncounterGeneric External Data ProviderNOMS External Department UnsolicitedStart: 02-04-2025 End: 61-86-0149Gbvoliwgz Result EncounterGeneric External Data ProviderNOMS External Department UnsolicitedStart: 02-04-2025 End: 30-92-3743biulqbxhigRkkljwo D [facility]Mer[facility] Work Phone: Start: 02-04-2025 End: 54-34-5724Ieionzur ReferredLobito Mejias DO-LAB [facility] Start: 02-02-2025 End: 51-48-1697Nzkahzoyi Result EncounterGeneric External Data ProviderNOMS External Department UnsolicitedStart: 02-02-2025 End: 23-49-7756Wtrxhhjoq Result EncounterGeneric External Data ProviderNOMS External Department UnsolicitedStart: 01-31-2025 End: 34-19-2066Bkfnkdzre Result EncounterGeneric External Data ProviderNOMS External Department UnsolicitedStart: 01-31-2025 End: 04-63-2863Awyltfawm Result EncounterGeneric External Data ProviderNOMS External Department UnsolicitedStart: 01-31-2025 End: 97-82-9986jpadkiqefcHocihxf P COOKFacility:CD:[id number]: 01-21-2025 End: 73-02-5936Knktqnsvk Result EncounterGeneric External Data ProviderNOMS External Department UnsolicitedStart: 01-21-2025 End: 58-55-5212Hsciezavx Result EncounterGeneric External Data ProviderNOMS External Department UnsolicitedStart: 01-20-2025 End: 10-00-7787weoqtkwtisOHFWPCStewart Epps AvailableStart: 01-06-2025 End: 40-63-0265Yaajkk Judy Perez MD Work Phone: NOM[facility] CI FM 100Start: 01-06-2025 End: 82-48-2960Ksvgfa Judy Perez MD Work Phone: [facility] CI FM 100Start: 01-06-2025 End: 39-79-0651Kpwifzuxe Result EncounterEdganesh Perez MD Work Phone: [facility] External Department UnsolicitedStart: 01-06-2025 End: 28-96-8103xdiadhwxepGDUXLV J HEMEYERNot AvailableStart: 01-06-2025 End: 91-52-7896Qdlwkt outpatient visit 15 minutesEdganesh Perez MD Work Phone: noms CI FM 100Comment on above:Vertigo (Primary Dx) Start: 01-05-2025 End: 32-41-3307Rfwwjm flowsheetMelissa Kelbley PTANOMS CI PTStart: 01-05-2025 End: 62-02-2473Grliee flowsheetMelissa Kelbley PTANOMS CI PTStart: 01-05-2025 End: 77-72-4031ihpvkbitjsFaevppo Kelbley PTANOMS CI PTComment on above:Vertigo (Primary Dx)Start: 12-31-2024 End: 26-37-6367Pfymul flowsheetMelissa Kelbley PTANOMS CI PTStart: 12-31-2024 End: 10-36-6095Opaems flowsheetMelissa Kelbley PTANOMS CI PTStart: 12-31-2024 End: 92-72-5686zaxsqkyqiwBbzrjzr Kelbley PTANOMS CI PTComment on above:Vertigo (Primary Dx)Start: 12-29-2024 End: 05-77-8823Jbmmxw flowsheetMelissa Kelbley PTANOMS CI PTStart: 12-29-2024 End: 44-04-0406Fwmfdp flowsheetMelissa Kelbley PTANOMS CI PTStart: 12-29-2024 End: 97-80-0225zqfyrvixhuQjqmkvj Kelbley PTANOMS CI PTComment on above:Vertigo (Primary Dx)Start: 12-23-2024 End: 12-16-5216Llcuaw flowsheetSammantha Narvaez PTNOMS CI PTStart: 12-23-2024 End: 13-31-2975Xgifjb flowsheetSammantha Narvaez PTNOMS CI PTStart: 12-23-2024 End: 91-28-2708qtylxtcyyvQcipcaevg Narvaez PTNOMS CI PTComment on above: Vertigo (Primary Dx)Start: 12-22-2024 End: 01-81-0585Fwoqri Judy Perez MD Work Phone: NOMS CI FM 100Start: 12-22-2024 End: 40-57-3196Mxuheb Judy Perez MD Work Phone: NOMS CI FM 100Start: 12-22-2024 End: 79-89-2102Rqvahk outpatient visit 25 minutesEdganesh Perez MD Work Phone: NOMS CI FM 100Comment on above:Vertigo (Primary Dx); 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 (HCC); 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; Medication monitoring encounterStart: 12-22-2024 End: 61-37-4143rwzcfccdmtLWHWCS J HEMEYERNot AvailableStart: 12-08-2024 End: 83-67-3437Hzlnddhmm Result Natasha Perez MD Work Phone: NOBI External Department UnsolicitedStart: 12-08-2024 End: 69-44-8901Qruikftsq Result Natasha Perez MD Work Phone: NOMS External Department UnsolicitedStart: 11-24-2024 End: 39-34-3405Bgmdvduvb Result EncounterGeneric External Data ProviderNOMS External Department UnsolicitedStart: 11-24-2024 End: 78-25-8148Tymtcgnad Result EncounterGeneric External Data ProviderNOMS External Department UnsolicitedStart: 11-24-2024 End: 55-03-4558Rqzhir Destiny Perez MD Work Phone: [facility] CI FM 100Start: 11-04-2024 End: 71-34-8335Xwsfhy flowsheetJayme Perez MD Work Phone: [facility] CI FM 100Start: 11-04-2024 End: 85-04-8743Omvhus flowsheetJayme Perez MD Work Phone: [facility] CI FM 100Start: 11-04-2024 End: 86-21-0320Anjogob encounter procedureJayme Perez MD Work Phone: NOMS CI FM 100Comment on above:Encounter for Medicare annual wellness exam (Primary Dx); Advance directive discussed with patient; Encounter for screening for other disorder; Screening for alcohol problem; Screening mammogram, encounter for; Iron deficiency; Chronic diastolic heart failure (CMS/HCC); 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 (CMS/HCC); Stage 3a chronic kidney disease (HCC) (CMS/HCC); Age-related osteoporosis without current pathological fracture ([facility]/HCC); Psoriatic arthropathy ([facility]/HCC); Type 2 diabetes mellitus with stage 3a chronic kidney disease, without long-term current use of insulin (HCC) ([facility]/HCC); Type 2 diabetes mellitus with diabetic microalbuminuria, without long-term current use of insulin ([facility]/HCC); Immunosuppressed status ([facility]/HCC)Start: 11-04-2024 End: 49-85-9590aeztpbcoenKHWNIU J HEMEYERNot AvailableStart: 11-02-2024 End: 40-73-1419Xjnnyrmrj Result Natasha Perez MD Work Phone: NOAW External Department UnsolicitedStart: 11-02-2024 End: 24-47-6739Qliyzisay Result Natasha Perez MD Work Phone: NOHB External Department UnsolicitedStart: 11-02-2024 End: 39-93-8464Jmuzwt OnlyJayme Perez MD Work Phone: NOMS CI FM 100Comment on above:Type 2 diabetes mellitus with diabetic microalbuminuria, without long-term current use of insulin ([facility]/HCC) (Primary Dx)Start: 10-25-2024 End: 63-69-8178Usbagihfo Result Natasha Perez MD Work Phone: NOMS External Department UnsolicitedStart: 10-25-2024 End: 58-29-5461Hhrvbmlkb Result Natasha Perez MD Work Phone: NOMS External Department UnsolicitedStart: 10-21-2024 End: 31-78-5618Yvfguc flowsheetJyame Perez MD Work Phone: [facility] CI FM 100Start: 10-21-2024 End: 63-84-1236Usvjzm flowsMatthew Perez MD Work Phone: [facility] CI FM 100Start: 10-21-2024 End: 04-97-8250Mlhdxf outpatient visit 25 minutesEdganesh Perez MD Work Phone: [facility]OMS CI FM 100Comment on above:Type 2 diabetes mellitus with stage 3a chronic kidney disease, without long-term current use of insulin (HCC) ([facility]/HCC); Stage 3a chronic kidney disease (HCC) ([facility]/HCC); Microalbuminuria; 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 ([facility]/HCC); 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Start: 10-21-2024 End: 10-79-5691qwcjviyfqzBNGPDY J HEMEYERNot AvailableStart: 10-18-2024 End: 51-12-1276Cmxcdceck Result EncounterGeneric External Data ProviderNOMS External Department UnsolicitedStart: 10-18-2024 End: 72-24-4854Aiwqtmhmo Result EncounterGeneric External Data ProviderNOMS External Department UnsolicitedStart: 10-16-2024 End: 96-93-8285IvxmnaEvtcsv J Hemeyer MD Work Phone: NOMS BNS FMComment on above: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 (CMS/HCC)Start: 10-09-2024 End: 70-81-2400VhrklqFlfsis J Hemeyer MD Work Phone: [facility]OMS CI FM 100Comment on above:Type 2 diabetes mellitus with stage 3a chronic kidney disease, without long-term current use of insulin (HCC) ([facility]/HCC)Start: 09-27-2024 End: 57-14-0997Jtetvjjxe Result EncounterEdganesh Perez MD Work Phone: NOMS External Department UnsolicitedStart: 09-27-2024 End: 72-08-4068Fnjurtcaq Result EncounterEdganesh Perez MD Work Phone: NOPT External Department UnsolicitedStart: 09-13-2024 End: 63-51-5960Glktnizmf Result EncounterEdganesh Perez MD Work Phone: NOYX External Department UnsolicitedStart: 09-13-2024 End: 97-21-2832Mnkokegip Result EncounterEdganesh Perez MD Work Phone: NOLR External Department UnsolicitedStart: 08-17-2024 End: 52-41-2729Kocdvmbtz Result EncounterEdganesh Perez MD Work Phone: NOGY External Department UnsolicitedStart: 08-17-2024 End: 43-49-2331Jljbhtgnx Result EncounterEdganesh Perez MD Work Phone: NOSE External Department UnsolicitedStart: 08-04-2024 End: 64-37-6001Kityei flowsheetJonathan Magalie Aguileraer DO Work Phone: noms OPHTStart: 08-04-2024 End: 88-76-3558Oblzls flowsheetJonathan Magalie Aguileraer DO Work Phone: noms NB OPHTStart: 08-04-2024 End: 53-65-0415cftczaqsxrONHMOGAW Magalie THORNTONNot AvailableStart: 07-19-2024 End: 76-38-3668Oajneqdrr Result EncounterEdganesh Perez MD Work Phone: NOMS External Department UnsolicitedStart: 07-19-2024 End: 19-87-2049Qgclbxqdk Result EncounterEdganesh Perez MD Work Phone: NOLU External Department UnsolicitedStart: 07-12-2024 End: 07-34-3337pqrytdbsweHnfwdrv P COOKFacility:EU SanduskyStart: 07-12-2024 End: 46-70-3966Vjwstgu encounter procedureGregory Rubi JACKSON [facility] Nena Start: 07-05-2024 End: 66-02-0174Vynsuwbpm Result EncounterGeneric External Data ProviderNOMS External Department UnsolicitedStart: 07-05-2024 End: 28-47-7714Xsdrpmabg Result EncounterGeneric External Data ProviderNOMS External Department UnsolicitedStart: 07-01-2024 End: 60-75-6990Tsmyqwbpe Result EncounterEdganesh Perez MD Work Phone: noms External Department UnsolicitedStart: 07-01-2024 End: 50-85-6092Kdgkgvaxs Result EncounterEdganesh Perez MD Work Phone: noms External Department UnsolicitedStart: 06-17-2024 End: 95-32-5345Sdolwiikf encounterEdganesh Perez MD Work Phone: N[facility] CI FM 100Start: 06-16-2024 End: 49-15-0640Bnepywatl Result EncounterGeneric External Data ProviderNOMS External Department UnsolicitedStart: 06-16-2024 End: 34-34-9015Zodggypzi Result EncounterGeneric External Data ProviderNOMS External Department UnsolicitedStart: 05-15-2024 End: 41-35-6660Nlkpzduyq Result EncounterEdganesh Perez MD Work Phone: noms External Department UnsolicitedStart: 05-15-2024 End: 35-89-5390Knvfzcttz Result EncounterEdganesh Perez MD Work Phone: noms External Department UnsolicitedStart: 05-14-2024 End: 49-14-6539Ksdnmrbjy Result EncounterEdganesh Perez MD Work Phone: noms External Department UnsolicitedStart: 05-14-2024 End: 07-93-8027Nxslopsno Result Natasha Perez MD Work Phone: NOPL External Department UnsolicitedStart: 04-23-2024 End: 48-03-5647Xpxrrrqvr Result Natasha Perez MD Work Phone: NOEK External Department UnsolicitedStart: 04-23-2024 End: 25-40-8210Dguszilko Result Natasha Perez MD Work Phone: NOUW External Department UnsolicitedStart: 04-22-2024 End: 01-01-0838Rqehpwvvv Result EncounterEdganesh Perez MD Work Phone: noms External Department UnsolicitedStart: 04-22-2024 End: 42-94-1518Etvqlsdlg Result EncounterEdganesh Perez MD Work Phone: noms External Department UnsolicitedStart: 04-16-2024 End: 00-36-5787Enmbknirs Result EncounterGeneric External Data ProviderNOMS External Department UnsolicitedStart: 04-16-2024 End: 09-21-4050Uvsgnvxfv Result EncounterGeneric External Data ProviderNOMS External Department UnsolicitedStart: 04-15-2024 End: 81-64-4609Fqnejw outpatient visit 25 minutesEdganesh Perez MD Work Phone: NOMS CI FM 100Comment on above: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 (CMS/HCC) (Primary Dx); retirement current use of anticoagulant; Type 2 diabetes mellitus with stage 3a chronic kidney disease, without long-term current use of insulin (HCC) (CMS/HCC); Stage 3a chronic kidney disease (HCC) (CMS/HCC); Microalbuminuria; Unexplained weight loss; Chronic fatigue; Sleep arousal disorderStart: 04-15-2024 End: 14-82-8472yzqtcjslctEWVFOP J HEMEYERNot AvailableStart: 04-13-2024 End: 16-42-2459Bxiyuyrlo Result Natasha Perez MD Work Phone: noms External Department UnsolicitedStart: 04-13-2024 End: 13-09-7457Itusyhmqs Result Natasha Perez MD Work Phone: NOTW External Department UnsolicitedStart: 03-31-2024 End: 61-82-4504Vvxzgpj encounter procedureMD Jayme Perez Work Phone: [facility] [address] Work Phone: Start: 03-31-2024 End: 21-30-8745gzgfxcubkkZU Jayme Perez Work Phone: [facility] Work Phone: Start: 03-29-2024 End: 48-57-8418Ntnmqrovn Result EncounterGeneric External Data ProviderNOMS External Department UnsolicitedStart: 03-29-2024 End: 79-14-0772Hqehmvozr Result EncounterGeneric External Data ProviderNOMS External Department UnsolicitedStart: 03-25-2024 End: 52-18-4174OqhijtIrkate J Hemeyer MD Work Phone: NOMS BNS FMComment on above:Type 2 diabetes mellitus with stage 3a chronic kidney disease, without long-term current use of insulin (HCC) ([facility]/HCC)Start: 03-17-2024 End: 34-65-2965Xczymbtri Result Natasha Perez MD Work Phone: NOZG External Department UnsolicitedStart: 03-17-2024 End: 33-01-2198Udmgslbrg Result Natasha Perez MD Work Phone: NOEE External Department UnsolicitedStart: 01-14-2024 End: 92-35-2420Llfytwbvz Result EncounterGeneric External Data ProviderNOMS External Department UnsolicitedStart: 01-14-2024 End: 84-32-7410Btyqktpag Result EncounterGeneric External Data ProviderNOMS External Department UnsolicitedStart: 10-14-2023 End: 27-98-0656Brahcmc encounter procedureEugenia JACKSON [facility] Nena Start: 10-09-2023 End: 73-39-8195Hptgoozxm Result EncounterGeneric External Data ProviderNOMS External Department UnsolicitedStart: 10-09-2023 End: 48-26-1708Cqziluoka Result EncounterGeneric External Data ProviderNOMS External Department UnsolicitedStart: 08-20-7413Gqrwcqfbv Result Encounter Generic External Data ProviderNOMS External Department UnsolicitedStart: 36-06-6573Ralfklbef Result EncounterGeneric External Data ProviderNOMS External Department UnsolicitedStart: 08-13-2023 End: 23-80-7633Jwddnuk encounter procedurePatrick R EATON [facility] Start: 08-07-2023 End: 26-53-7707Xgytsf outpatient visit 25 minutesJayme Perez MD Work Phone: [facility] FMComment on above:Chronic diastolic heart failure (CMS/HCC) (Primary Dx); 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 (CMS/HCC); Type 2 diabetes mellitus with stage 3a chronic kidney disease, without long-term current use of insulin (HCC) (CMS/HCC); Stage 3a chronic kidney disease (HCC) (CMS/HCC); Microalbuminuria; Former smoker; 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, adult; retirement current use of anticoagulant; Psoriatic arthropathy (CMS/HCC); Gastroesophageal reflux disease without esophagitisStart: 07-25-2023 End: 20-18-3401kgddclhxkzOwywg Keller [facility] [employer] Other Start: 11-49-7978Mkmtyb outpatient visit 25 minutes [facility]deStart: 04-07-2023 End: 84-82-6591ubosjsgvqaPA Edward J Hemeyer Work Phone: [facility] Work Phone: Start: 04-07-2023 End: 05-08-8057Aucsegnl ReferredMD Jayme Perez Work Phone: [facility]Start: 03-26-2023 End: 17-41-3409Owpsyec encounter procedureMD Edward Hemeyer Work Phone: [facility] Work Phone: Start: 03-20-2023 End: 92-16-0723Rej Drop offEugenia JACKSON [facility] Start: 03-20-2023 End: 37-46-2787Ijpbtwd encounter procedureGregchilo JACKSON [facility] Nena Start: 11-11-2022 End: 31-51-2946yggmpjadebPN EDWARD HEMEYER .Facility:G3Hobiz: 10-25-2022 End: 15-87-5327ssyzfjeepeTF RADAMES MORROWFacility:U2Odcpq: 10-14-2022 End: 71-32-9386ntaxoqzlheHR EDWARD HEMEYER .Facility:A7Jbihg: 09-24-2022 End: 70-59-4476uxnsbgpbbcAA RADAMES MORROWFacility:L9Dohvf: 09-09-2022 End: 35-08-8749kcddxxuaimNF EDWARD HEMEYER .Facility:W5Rqmqp: 09-02-2022 End: 83-43-2997yxnulaouooVL EDWARD HEMEYER .Facility:Y5Qppsq: 08-09-2022 End: 48-43-1032cfopewvikgTL EDWARD HEMEYER .Facility:H5Ttfph: 08-05-2022 End: 24-23-9953ngdwabpvtoFS RADAMES MORROWFacility:G9Llwmo: 04-15-2022 End: 89-92-4768jrtmqbqrsvKV RADAMES MORROWFacility:N1Hqkcu: 02-20-2022 End: 10-53-3782kxwfesmkhwFN RADAMES MORROWFacility:N7Wokgf: 02-07-2022 End: 04-47-3911vpcnjzxhmgHH EDWARD HEMEYER .Facility:O0Sauox: 05-21-2021 End: 60-25-3607adsbmmpbkgMsmbmvbji Breault Other Nort [employer] Other Start: 99-66-7284Nwibld outpatient visit 15 minutes Astrid BakerFPG [facility] Procedures DateProcedureProcedure DetailPerforming ClinicianStart: 07-27-4000OTW HEMOGLOBIN T6OJcyniyJayme Perez MD Work Phone: Start: 04-14-5860FWQWSZ PROTHROMBIN TIME INR W/O COUM Jayme Perez MD Work Phone: Start: 17-51-9546DVGZZC PROTHROMBIN TIME INR W/O COUM Jayme Perez MD Work Phone: Start: 25-30-9960AywatzwwurCavlvr Hemeyer MD Work Phone: Start: 05-38-4372Ckwiqk abdominal X-rayJayme Perez MD Work Phone: Start: 39-36-6520Cjymf cultureJayme Perez MD Work Phone: Start: 81-09-3070BOUFY CULTURE - FRMCGeneric External Data ProviderStart: 45-27-4751UE ABDOMEN 1VGeneric External Data ProviderStart: 84-59-1418LLNPI CULTURE 2Generic External Data ProviderStart: 43-34-0215ZBPWH CULTURE 1Generic External Data ProviderStart: 74-63-4027MZI CBC WITH AUTO DIFF Generic External Data ProviderStart: 61-57-4389JOLSLA PROTHROMBIN TIME INR W/O COUMJayme Perez MD Work Phone: Start: 80-52-0972XLXMYL PROTHROMBIN TIME INR W/O COUM Jayme Perez MD Work Phone: Start: 25-03-6026JWF CBC WITH AUTO DIFFGeneric External Data ProviderStart: 13-68-6720DTT MICROALB CREAT RATIO RANDOMJayme Perez MD Work Phone: Start: 06-71-8169EREDQL PROTHROMBIN TIME INR W/O KRISTY Perez MD Work Phone: Start: 47-47-7160GOW CBC WITH AUTO DIFFGeneric External Data ProviderStart: 68-40-9493WKNPQZ PROTHROMBIN TIME INR W/O KRISTY Perez MD Work Phone: Start: 16-46-8423SGPTYN PROTHROMBIN TIME INR W/O KRISTY Perez MD Work Phone: Start: 10-45-4165WTBDYC PROTHROMBIN TIME INR W/O COUM Jayme Perez MD Work Phone: Start: 00-50-5984Lgofjsoxwcwa ophthalmic imaging optic nerveJonancy Thornton DO Work Phone: Start: 08-04-2024 End: 56-16-5964Ykswh medical xm&eval comprhnsv estab pt 1/>Glaucoma suspect of both eyesJonancy Thornton DO Work Phone: comment on above:Glaucoma suspect of both eyes (Primary Dx); Type 2 diabetes mellitus with stage 3a chronic kidney disease, without long-term current use of insulin (HCC) (CMS/HCC); Dry eyes; Blepharitis of upper and lower eyelids of both eyes, unspecified typeStart: 37-66-1768NZSIHD PROTHROMBIN TIME INR W/O Kandy Perez MD Work Phone: Start: 84-19-0040WH ABDOMEN 1VGeneric External Data ProviderStart: 09-54-0275TBJTBI PROTHROMBIN TIME INR W/O Kandy Perez MD Work Phone: Start: 95-17-0941DGA CBC WITH AUTO DIFFGeneric External Data ProviderStart: 90-25-7376GY CHEST W Andrew Perez MD Work Phone: Start: 78-26-1973FBOKHG PROTHROMBIN TIME INR W/O KRISTY Perez MD Work Phone: Start: 92-15-5561TJ ABDOMEN PELVIS W CONEdganesh Perez MD Work Phone: Start: 95-17-3435XXS CREATININEEdganesh Perez MD Work Phone: Start: 81-48-8925KOV CBC WITH AUTO DIFFGeneric External Data ProviderStart: 39-14-4039OTZRRD PROTHROMBIN TIME INR W/O COUM Jayme Perez MD Work Phone: Start: 03-78-4045CXG CBC WITH AUTO DIFFGeneric External Data ProviderStart: 33-88-3210OGPSAI PROTHROMBIN TIME INR W/O COUM Jayme Perez MD Work Phone: Start: 74-04-5336VD DEXA AXIAL SKELETONGeneric External Data ProviderStart: 17-16-7587NW ABDOMEN 1VGeneric External Data ProviderStart: 45-95-3116XYG BUNGeneric External Data ProviderStart: 08-20-2023 ALL CARBON DIOXIDEGeneric External Data ProviderStart: 04-96-2716XIT CHLORIDE Generic External Data ProviderStart: 88-87-0082RZW PHOSPHOROUSGeneric External Data ProviderStart: 51-74-8108TZZ SODIUMGeneric External Data ProviderStart: 58-33-6394CAL URIC ACIDGeneric External Data ProviderStart: 92-49-0759XRB CALCIUMGeneric External Data ProviderStart: 28-91-8869YXF CREATININEGeneric External Data ProviderStart: 80-19-6129YbqxadouwfrJwbtdpv COOK Start: 35-02-8423Dbokpkgneyfzep shockwave lithotripsy of calculus of kidneyEugenia JACKSON Start: 35-07-9130Mnjabxfebwa laser lithotripsy of ureteric calculusEugenia JACKSON Start: 38-02-1464Rmssebesvqq removal of ureteric stent Eugenia JACKSON Start: 53-27-7162Pcwbibbegwhcoo shockwave lithotripsy of calculus of kidneyEugenia JACKSON Start: 60-43-2698Rpvjycmaii retrograde pyelogramEugenia JACKSON Start: 42-33-2372Wqybiwrcercfrb shockwave lithotripsy of calculus of kidneyEugenia JACKSON Start: 10-57-1479Avgpvrdbrkj removal of ureteric stent Eugenia JACKSON Start: 40-42-0870Xamhprhrypgfcr shockwave lithotripsy of calculus of kidneyEugenia JACKSON Start: 77-03-8564Nflfobtljkf insertion of ureteric stentEugenia JACKSON Start: 51-27-3931Paadtbkcar retrograde pyelogramEugenia JACKSON [employer] Start: 98-00-7633Tspnuidwsfy anastomosis of ureter to bladder with insertion of stent into ureterEugenia JACKSON Abdominal hysterectomyPatricalexandra [employer] appendectomyPatrick [employer] Extraction of cataractPatrick [employer] Partial lobectomy of lungPatrick [employer] TonsillectomyPatrick [employer] Plan of Treatment DateCare ActivityDetailAuthorStart: 05-95-0678Zucorrzp screeningDiabetes: Retinopathy ScreeningS[facility] HealthcareStart: 00-84-5887Gjjpjopi screeningDiabetes: Retinopathy ScreeningNOWA HealthcareStart: 16-40-8357Hqdqx screening for protein Diabetes: Urine Protein ScreeningKindred HospitalStart: 93-07-8377Idqddpggkhzf Vaccine: 65+ Years (1 of 2 - PCV)Pneumococcal Vaccine: 65+ Years (1 of 2 - PCV) [facility] HealthcareComment on above:Postponed from 1952 (Patient Refused) Postponed from 1965 (Patient Refused)Start: 05-23-2025 End: 34-19-6716Qzngukn encounter lcchxzmko48/10/2025 2:30 PM EST Office Visit [facility] [place] [facility] [address] [facility] [address] [place] [address] Jayme Perez MD [address] [facility] [address] [place] [address] (Fax)[facility] [place] MedicineStart: 45-63-5080Mhzcynod screeningDiabetes: Retinopathy ScreeningSAN JUAN [facility]OSPITAL HealthcareStart: 25-15-6100Ebhiarolhf A1c measurementDiabetes: Hemoglobin B4PFYMNKindred Hospital Start: 03-27-2025 End: 47-32-5790Ywneopsyav A1c/Hemoglobin.total in BloodHemoglobin A1c Lab Routine Type 2 diabetes mellitus with stage 3a chronic kidney disease, without long-term current use of insulin (HCC) ([facility]) Expected: 03/27/2025 (Approximate), Expires: 10/25/2025NOWA HealthcareComment on above:Expected: 03/27/2025 (Approximate), Expires: 10/25/2025Start: 75-17-6899Muhtwoegn vaccinationSAN JUAN HOSPITAL HealthcareStart: 00-07-7515RglxzqtiaSt. Charles Hospital Start: 05-04-5532UuuqprefqParkview Health Montpelier Hospitaltart: 76-98-9770Muqwuk abdominal X-rayParkview Health Montpelier Hospitaltart: 32-29-1554BeqluahqdParkview Health Montpelier Hospitaltart: 02-08-2025 End: 85-85-4009Czeokba encounter uknlpxuni95/29/2025 10:30 AM EDT Office Visit [facility] 100 [address] [facility] [address] [place] [address] Jayme Perez MD [address] [facility] [address] [place] [address] (Fax)[facility] CI FM 100Start: 38-27-9636Syvydoqb identified in Urine by CultureUrine [facility] Start: 03-10-7618Wjlmc cultureParkview Health Montpelier Hospitaltart: 02-02-2025 End: 64-15-5011Ssvsyxh encounter vzdcldovx19/23/2025 1:30 PM EDT Office Visit [facility] [address] [place] [id number] Felicia Thornton, DO [address] [place] [address] NOMS NB OPHTStart: 58-83-7706Xkhckvxgg vaccination Influenza Vaccine (#1)[facility] HealthcareComment on above:Postponed from 03/14/2024 (Patient Refused)Start: 01-10-2025 End: 87-41-3031ncnarjcbvm74/30/2025 11:00 AM EDT Treatment [facility] [address] [place] [address] Joselyn Narvaez, PTNOMS CI PTStart: 01-07-2025 End: 13-99-0455rnxllxhtdw02/27/2025 12:00 PM EDT Treatment [facility] [address] [place] [address] Clara Orlando, VENDETTE [facility] CI PTStart: 01-05-2025 End: 28-70-6105sztcgudqizFRZS CI PTComment on above:ArrivedStart: 12-31-2024 End: 44-47-9996yiwicizjvxGUMO CI PTComment on above:Vertigo (Primary Dx)Start: 12-29-2024 End: 47-51-1794tletkkhuxyZABJ CI PTComment on above:ArrivedStart: 12-23-2024 End: 91-33-5052dqndwhttho73/12/2025 12:30 PM EDT Evaluation [facility] [address] [place] [address] Joselyn Narvaez, PT Vertigo (Primary Dx)[facility] CI PTComment on above:Vertigo (Primary Dx)Start: 12-22-2024 End: 33-85-8267Gqyqujr encounter ugrreulhd01/11/2025 11:45 AM EDT Office Visit [facility] [address] [place] [address] Jayme Perez MD [address] [place] [address] ArrivedNOMS CI FM 100Comment on above: ArrivedStart: 11-04-2024 End: 35-03-7392Jjhscgy encounter procedureNOMS CI FM 100Comment on above: Encounter for Medicare annual wellness exam; Advance directive discussed with patient; Encounter for screening for other disorder; Screening for alcohol problem; Screening mammogram, encounter forStart: 10-25-2024 End: 33-96-1355Apwkvgkhmmek/Creatinine panel in random UrineMicroalbumin / creatinine urine ratio Lab Routine Type 2 diabetes mellitus with stage 3a chronic kidney disease, without long-term current use of insulin (HCC) (CMS/HCC) Stage 3a chronic kidney disease (HCC) ([facility]/HCC) Microalbuminuria Expected: 10/25/2024 (Approximate), Expires: 10/25/2025[facility] Work Phone: Comment on above:Expected: 10/25/2024 (Approximate), Expires: 10/25/2025Start: 10-21-2024 End: 79-99-9769Ilmmsyv encounter procedureNOMS CI FM 100Comment on above:Type 2 diabetes mellitus with stage 3a chronic kidney disease, without long-term current use of insulin (HCC) (CMS/HCC); Stage 3a chronic kidney disease (HCC) ([facility]/HCC); Microalbuminuria; 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 ([facility]/HCC); retirement current use of anticoagulantStart: 10-14-2024 End: 34-62-9977S3, reverseT3, reverse Lab Routine Chronic fatigue Expected: 10/14/2024 (Approximate), Expires: 04/15/2025NOWA HealthcareComment on above: Expected: 10/14/2024 (Approximate), Expires: 04/15/2025Start: 10-14-2024 End: 74-52-4044Ioxwaesdffl [Units/volume] in Serum or PlasmaTSH Lab Routine Chronic fatigue Expected: 10/14/2024 (Approximate), Expires: 04/15/2025NOMS HealthcareComment on above:Expected: 10/14/2024 (Approximate), Expires: 04/15/2025Start: 10-14-2024 End: 20-77-2538Wwdjqghps (T4) free [Mass/volume] in Serum or PlasmaT4, free Lab Routine Chronic fatigue Expected: 10/14/2024 (Approximate), Expires: 04/15/2025 [facility] HealthcareComment on above:Expected: 10/14/2024 (Approximate), Expires: 04/15/2025Start: 10-14-2024 End: 09-95-5271Fopukhmpcnthyinj (T3) [Mass/volume] in Serum or PlasmaT3 Lab Routine Chronic fatigue Expected: 10/14/2024 (Approximate), Expires: 04/15/2025 [facility] Work Phone: Comment on above:Expected: 10/14/2024 (Approximate), Expires: 04/15/2025Start: 10-14-2024 End: 81-58-6730Rqmhglugsbtuakkp (T3) Free [Mass/volume] in Serum or PlasmaT3, free Lab Routine Chronic fatigue Expected: 10/14/2024 (Approximate), Expires: 04/15/2025[facility] HealthcareComment on above:Expected: 10/14/2024 (Approximate), Expires: 04/15/2025Start: 08-04-2024 End: 51-85-1408Vvaigrq encounter procedureNOMS NB OPHTComment on above:Arrived Start: 11-09-2024Medicare Annual Wellness (AWV)Medicare Annual Wellness (AWV) [facility] HealthcareStart: 04-15-2024 End: 45-79-9580Myzutpy encounter oubrbicod86/03/2024 2:30 PM EDT Office Visit [facility] [address] [phone] Jayme Perez MD [address] [place] [address] (Fax)[facility] 100Start: 20-45-4863Svylwhrwg vaccination Influenza Vaccine (#1)[facility] HealthcareStart: 92-38-7683Zpjat screening for proteinDiabetes: Urine Protein ScreeningNOWA HealthcareStart: 09-01-2023 End: 58-03-6404Lzpapfb encounter vcmekcteo35/19/2024 10:30 AM EST Office Visit NOMKerry LOPEZ OPHT [address] [place] [id number] Felicia Thornton, DO [address] [place] [address] [facility] OPHTStart: 10-67-1296Jmzlahfwiz A1c measurementDiabetes: Hemoglobin I0QPIXS HealthcareStart: 47-32-2771Uilspbt endoscopyOR Cysto/Retro/Stent/Stone/Holmium Laser (Right)[facility] Hospitaltart: 25-69-5346Xwjqxgrun vaccinationInfluenza Vaccine (#1)[facility] HealthcareStart: 09-12-7831Qksco screening for proteinDiabetes: Urine Protein ScreeningNOWA HealthcareStart: 67-27-2931ZHjR/Tdap/Td Vaccines (1 - Tdap) DTaP/Tdap/Td Vaccines (1 - Tdap)[facility] HealthcareStart: 02-38-7577Vaajetinuptw Vaccine: 65+ Years (1 - PCV)Pneumococcal Vaccine: 65+ Years (1 - PCV)[facility]OM HealthcareStart: 57-26-2325Kvdovbeknsdf Vaccine: 65+ Years (1 of 2 - PCV) Pneumococcal Vaccine: 65+ Years (1 of 2 - PCV)[facility] HealthcareStart: 1950 COVID-19 Vaccine (#1)COVID-19 Vaccine (#1)[facility] HealthcareStart: 48-30-1075Ajbi Cancer ScreeningSkin Cancer ScreeningNOMercy Hospital WashingtonBilirubin measurement [facility] HospitalBLOOD CULTURE 1BLOOD CULTURE 1 Lab Routine 01/31/2025 9:50 AM EDTNOMS HealthcareBLOOD CULTURE 2BLOOD CULTURE 2 Lab Routine 01/31/2025 9:56 AM EDTNOMS HealthcareBody weightSt. Charles HospitalCalcium carbonate/Total in [facility] HealthCalcium hydrogen phosphate dihydrate/Total in [facility] Calcium oxalate monohydrate/Total in [facility] Calcium phosphate levelSt. Charles HospitalCalculus analysis with calculus photography [Interpretation] in [facility] Calculus analysis, qualitativeSt. Charles HospitalCalculus analysis, quantitativeSt. Charles HospitalCalculus analysis, quantitative, infrared spectroscopySt. Charles HospitalCellular material [Mass/mass] of Stone by EstimatedSt. Charles Hospital Cholesterol [Mass/volume] in Serum or PlasmaSt. Charles Hospital Cystine measurementSt. Charles HospitalDetermination of calculus chemical compositionSt. Charles HospitalEvaluation procedure [facility] HospitalHydroxyapatite [Energy Difference] in 24 hour UrineSt. Charles HospitalLaboratory data interpretationSt. Charles HospitalNewberyite/Total in [facility] HealthPatient EducationKnow your MedKettering Health [facility]tr Work Phone: Patient referralGerman Hospital Ctr Work Phone: Specimen source subject [Type]St. Charles HospitalTriamterene measurementSt. Charles HospitalTriple phosphate/Total in [facility] HealthURINE CULTURE - [facility] URINE CULTURE - [facility] Lab Routine 02/04/2025 1:19 PM EDTNOWA Healthcare Immunizations Immunization DateImmunizationNotesCare ProviderFacilityNEGATED: Highlighted row has not occurred!51-80-5942nyqmlaeaj virus vaccine, unspecified formulation Renato EATON [facility] CenteryNEGATED: Highlighted row has not occurred!15-36-1794KMCQ-CoV-2 mRNA (tozinameran 5y-11y) vaccinePagamal EATON [facility] HospitalGATED: Highlighted row has not occurred!08-98-1991avucfacmj virus vaccine, live, attenuated, for intranasal useEugenia JACSKON [facility] HospitalGATED: Highlighted row has not occurred!19-99-8943ajunqjlah virus vaccine, live, attenuated, for intranasal useGregMySQUAR [facility] eNna Payers DatePayer CategoryPayerPolicy [id number]-lac [id number] Health Insurance [id number] [id number] CONTINENTAL INS CO LUXEMBOURGER CONTINENTAL INS CO [id number] 2022-Present [address] [address] [place] [id number] 2002Medicare [id number] [id number] [id number] 2.16.840.1.928183.3.579.2.91742-88-0763Fbyobif8918432 2.16.840.1.541559.3.579.2.51068-05-7204Iczkuqu6955183 2.16.840.1.204564.3.579.2.66606-31-1270Xpuifbz0505394 2.16.840.1.294824.3.579.2.29636-85-8190Xieboml3737757 2.16.840.1.425880.3.579.2.82069-89-3468Lzgecmu6698124 2.16.840.1.738932.3.579.2.11773-42-3445Yizgdbk2239627 2.16.840.1.725948.3.579.2.68835-03-0463Hginqbr1190796 2.16.840.1.211029.3.579.2.00122-20-2470Lxilkfk5093403 2.16.840.1.985324.3.579.2.09317-30-0983Zhundmu9156340 2.16840.1.765290.3.579.2.72289-93-4079Aqfymkn6264474 2.16840.1.316871.3.579.2.88830-35-9603Cubyaco8290365 2.16840.1.524180.3.579.2.61633-23-5396Pzjmjth5396231 2.16840.1.516137.3.579.2.44499-29-0310Uumcewi31182708 2.16840.1.079140.3.579.2.768572-09-5231Essyjvr64476916 2.16840.1.616582.3.579.2.223995-59-6418Ufnigdt15243234 2.16840.1.295899.3.579.2.654954-53-3210Hcppiya15448822 2.16840.1.345664.3.579.2.850002-60-4752Hnazcvv45563337 2.16840.1.364987.3.579.2.262326-98-1411Qgkmznj82302870 2.16840.1.489752.3.579.2.290362-15-4159Syrfjpv99923362 2.16840.1.284894.3.579.2.164102-76-3200Ujxtttt64849356 2.16.840.1.810374.3.579.2.295726-77-0563Rbwrvhb8556981 2.16.840.1.202537.3.579.2.772627-37-8561Bkunwmf5697732 2.16.840.1.160401.3.579.2.742486-68-7167Ljfzufq0153999 2.16.840.1.691622.3.579.2.476753-57-6236Mjczbms0429638 2.16.840.1.326039.3.579.2.283657-44-3849Zqmunje60244161 2.16.840.1.316176.3.579.2.83822-84-5921Iesycrn45813526 2.16.840.1.145431.3.579.2.56915-85-7632Wnfvcur43142213 2.16.840.1.144812.3.579.2.945Hysxtsv30410200 2.16.840.1.274640.3.579.2.531 Qgteixc68135272 2.16.840.1.585084.3.579.2.106Rihxlfo02910538 2.16.840.1.556673.3.579.2.650Zqyymdq13009057 2.16.840.1.918768.3.579.2.531 Social History DateTypeDetailFacilitySex Assigned At [facility] [employer] Other Start: 02-03-2023 End: 21-46-2934Iivpeei smoking statusEx-smoker (finding)[facility]: 26-29-3043Qdsmksb smoking statusNever [facility]: 12-11-2022 End: 54-93-6201Mjz Assigned At [facility] Hospitaltart: 75-98-5280Psk [facility]igned At [facility] End: 73-85-0556Knteenu of tobacco useCurrent smokerN[facility]S Healthcare End: 97-32-1375Gzxvlhl of tobacco useCigarette SmokerNOMS HealthcareStart: 08-07-2023 End: 01-64-9124Yzwrovg use and exposureSmokeless tobacco non-userNOMS Healthcare Start: 08-07-2023 End: 77-62-5060Twfnebl intakeEx-drinker (finding)NOM HealthcareStart: 12-11-2022 End: 88-80-6086Fxjquub of Social functionNOMS HealthcareWithin the last year, have you been afraid of your partner or ex-partner?NoNOMS HealthcareAre you now , , , , never or living with a partner? WidowedNOMS HealthcareHow often to you have a drink containing alcohol?NeverNOMS HealthcareDo you feel stress - tense, restless, nervous, or anxious, or unable to sleep at night because yourmind is troubled all the time - these days [OSQ]To some extentNOMS Healthcare(I/We) worried whether (my/our) food would run out before (I/we) got money to buy more.Never trueNOMS HealthcareStart: 01-24-2023 Cigfufmqr64JIKV HealthcareStart: 54-14-0739Tbupkl identityIdentifies as female gender (finding)[facility] HealthcareDo you feel stress - tense, restless, nervous, or anxious, or unable to sleep at night because yourmind is troubled all the time - these days [OSQ]Not at allNOMS HealthcareSexFemale (finding)[facility] Goals DatePatient GoalDesired Activity/State Functional Status SfkaQbmjhwvquwGpjdouWhcizxir31-59-7100Rnmrafi Health Questionnaire 2 item (PHQ- 2) [Reported][facility]red HospitalKaccrjnwri76-36-3154Zaqjyae Health Questionnaire 2 item (PHQ- 2) [Reported][facility]red HospitalYjmjisbtkm49-93-8244Mqcciokslw StatusN/AExecutive Urology of [facility]09-26-2024Total score [AUDIT-C]0 04/08/2024 6:36 PM EDT Elzat, NatoKindred HospitalOwmmbrgfok00-43-9931Rem often do you have a drink containing alcohol?Never 04/08/2024 6:36 PM EDT Mychart, Generic NeverKindred HospitalLwfjjdvelt69-46-5082Nfkhemrbmg statusPatient does not drink 04/08/2024 6:36 PM EDT Mychart, Generic Patient does not drinkKindred HospitalTvtidaojof78-66-1724Jrn often do you have 6 or more drinks on 1 occasion?Never 04/08/2024 6:36 PM EDT Mychart, Generic NeverKindred HospitalWbtuxebcrj49-39-7599Lnbbvhvigl StatusN/AExecutive Urology of [facility]01-31-2024Functional StatusN/AExec[facility] of [facility] Clinical Notes 02-21-2022 to 02-08-2025 Note Date & PavkAqggGcensfyv31-95-1086 Telephone encounter Note* Telephone Encounter - Magalis Harris MA - 02/08/2025 12:30 PM EDT Copied from from pt: Yeah, this is Jocelyn Sen, [phone]. I forgot to ask Dr. Persaud when I should start taking my warfare again and he's going to be off for a while, so I thought I'd better try and find out now. [phone], thank you. [facility]red HospitalAwzdrpztrg87-89-7232 Telephone encounter Note* Telephone Encounter - Magalis Harris MA - 02/08/2025 12:29 PM EDT Copied from VM: The is the [facility] pharmacy calling concerning the prescriptions for Wilda Sen birthday [id number] have a prescription for Roberto F on [...] as well. Thank you so much by. [facility]red HospitalKzdtzszavv07-84-1466 History of Present illness Narrative* Jayme Perez MD - 02/08/2025 10:30 AM EDT Images from the original note were not included. Patient ID: Wilda Sen is a 79 y.o. female who presents for: Hospital Follow up kidney stones Flowsheet Row Patient Outreach from 02/08/2025 in [facility] with Klaudia Terrell LPN [facility] Information ED, Hospital or [facility] Facility Discharge? ED Patient has been contacted within 2 days of being seen in the ED No [unable to reach] Have two attempts been made, within 2 days of being seen in the ED, to contact the patient? Yes Diagnosis uretral Colic, Hydronephrosis with ureteral calculus, kidney stone Discharge Date 02/04/25 Discharged To: Home Setting Discharge Hospital [facility] Engagement Admission Date 02/04/25 Medications Discharge medications [...] stent placement for left renal colic. Pt recievedmorphine and 1 dose of Ceftriaxone in ER Review of Systems Patient is still having pain but notes that is much improved. Still having problems with passing some blood clots. Most of them are thin but she has had a couplethat were on actually uncomfortable to pass. No fever chills. No urinary incontinence. Continues with pain from the stent. She is rating this ella 7-8 on the pain scale , noting [...] problems if not taken the correct way, ortaken with another drug or food item that [...] capsule (5 mg) by mouth every 8 (eight)hours for 7 days Dispense: 21 capsule; Refill: [...] transition of care note is reviewed. a cqbg-ww-jjwj evaluation is done today. Medical decision making is complex in degree. Please Note: Portions of this chart may have been created using voice recognition software. Occasionally a wrong-word or sound-like substitutions may have occurred due to inherent limitations of the voice recognition software. Please read the chart carefully and recognize, using context, where the substitutions may have occurred. documented in this encounterKindred HospitalOiboupwifp78-54-8002 History of Present illness Narrative* Jayme Perez MD - 01/06/2025 11:30 AM EDT Images from the original note [...] for both left Mallory maneuvers and cervicogenic causesof her vertigo. She does note that her [...] that is sometimes spironolactone and stabilizing fluid volumescan help or vertigo in the patient is interested in this. She will contact us back after 10 days tosee if there some improvement. She will consider the imaging during this time. - spironolactone (Aldactone) 25 MG tablet; Take 1 tablet (25 mg) by mouth Daily for 10 days Dispense: 10 tablet; Refill: 0 documented in this encounterKindred HospitalXljezbklid20-17-4487 History of Present illness Narrative* Jayme Perez MD - 12/22/2024 11:45 AM EDT Images from the original note [...] have any trauma. She has not also feltill. I discussed using the meclizine and this very specific side effect of sedation. We also discussed at least a trial of physical therapy in case there was a piece of calcium broken off and they can use the Mallory maneuvers to get that out, or if it was cervicogenic, then they couldtry and help loosen that part of her neck up. She is in agreement. - meclizine (Antivert) 12.5 MG tablet; Take 0.5-1 tablets (6.25-12.5 mg) by mouth 3 (three) times aday as needed for dizziness for up to 20 days Dispense: 60 tablet; Refill: 0 - Ambulatory referral to Physical Therapy; Future - Ambulatory referral to Physical Therapy 2. 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 (HCC) - Protime-INR 3. retirement current use of anticoagulant - Protime-INR 4. Medication monitoring encounter - Protime-INR [facility] History of Present illness Narrative* Jayme Perez MD - 11/24/2024 1:32 PM EDT Her INR last month was borderline high. She is now currently high at 3.4. I am unsure of her dosing in the medication management section. She has a warfarin 4 mg tablet onlybut it says take a total of 5 [...] INR in 2 weeks. [facility] History of Present illness Narrative* Jayme Perez MD - 11/04/2024 2:00 PM EDT Images from the original note were not included. Wilda eSn is a 79 y.o. female presents with chief complaint of Annual Exam HPI: I have reviewed and reconciled the history and medication list with the patient today. 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 Hearing Screening: Not done Cognitive Screening Self Assessment: No concerns rasied by family members, friends, or caretakers Three Word Registration: Isaiah Murphy, Finger Clock Drawing: Normal Clock - 2 Three Word Recall: All 3 words correct - 3 Total Score (0-5 Points): 5 Pain Assessment Pain Score: 4 HISTORIES: PAST MEDICAL HISTORY: Past Medical History: Diagnosis Date Arthritis Basal cell carcinoma nose (2011), christian left (2014) Basal cell carcinoma (BCC) of multiple sites 2014 face Calculus of kidney Chronic kidney disease, stage 2 (mild) Depressive disorder ([facility]) not elsewhere classified Diabetes ([facility]) Diabetes mellitus ([facility]) Diabetes mellitus without mention of complication, type II or unspecified type, not stated as uncontrolled Diarrhea, unspecified Diverticulitis of colon (without mention of hemorrhage)(562.11) Duodenitis Esophageal reflux retirement (current) use of insulin ([facility]) Melanoma of shoulder, right ([facility]) 11/2014 going to Other psoriasis ([facility]) Other specified malignant neoplasm of skin of other parts of face Personal history of renal calculi Personal history of skin cancer Psoriatic arthropathy ([facility]) Renal calculus, right 02/2016 Dr. Jackson Situational depression ([facility]) Type 2 diabetes mellitus without complications SURGICAL HISTORY: Past Surgical History: Procedure Laterality Date BASAL CELL CARCINOMA EXCISION wide excision of BCC of nose BASAL CELL CARCINOMA EXCISION excision multiple BCC face 2013, 2015 BREAST BIOPSY CATARACT EXTRACTION CYSTOSCOPY W/ LASER LITHOTRIPSY 08/14/2023 Cytoscopy, right ureteral dilation, thilium laser of right ureteral calculus, Dr Eaton EYE EXAM 2011, 2013 HYSTERECTOMY 1973 LITHOTRIPSY and laser surgery for kidney stone 2015, 08/2019 MELANOMA 10/2014 excision right posterior shoulder [place] REMOVAL OF LUNG 1986 pneumonectomy SCREENING MAMMOGRAM, [...] discussing health maintenance issues, ordering testing as appropriate,and a schedule was reviewed regarding recommended screening. [...] could make their wishes known through a livin g will, durable power of health care attorney for healthcare, or other advanced directives. We discussed telling [place] people about their advance and a copy will be kept in the EHR. I discussedthat they should also make me an emergency [...] kidney disease, without long- term current use ofinsulin (HCC) ([facility]/HCC) Chronic problem, stable, currently asymptomatic and monitor longitudinally. 13. Type 2 diabetes mellitus with diabetic microalbuminuria, without long-term current use of insulin ([facility]/HCC) Chronic problem, stable, currently asymptomatic and monitor longitudinally. 14. Immunosuppressed status ([facility]/HCC) Chronic problem, stable, currently asymptomatic and monitor longitudinally. documented in this encounterKindred HospitalLqzyjcvifx01-64-7225 History of Present illness Narrative* Jayme Perez MD - 11/02/2024 11:33 AM EDT Reviewed microalbuminuria test Updated problem list. documented in this encounterKindred HospitalTlbadmvxva74-14-1620 Evaluation note* Diagnosis Type 2 diabetes mellitus with stage 3a chronic kidney disease, without long-term current use of insulin (HCC) ([facility]/HCC) Stage 3a chronic kidney disease (HCC) ([facility]) Microalbuminuria Proteinuria 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 ([facility]) Atrial fibrillation retirement current use of anticoagulant Encounter for Medicare annual wellness exam Advance directive discussed with patient Encounter for screening for other disorder Screening for alcohol problem Screening for alcoholism Screening mammogram, encounter for documented in this encounter [facility] HospitalPpzvytxczr10-11-0020 History of Present illness Narrative* Jayme Perez [...] Dispense: 90 tablet; Refill: 1 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 documented in this encounterKindred HospitalUkornfcrfp72-94-4098 Miscellaneous Notes* Telephone Encounter - Magalis Harris MA - 02/08/2025 12:30 PM EDT Copied from from pt: Rafael, this is Jocelyn Sen, [phone]. I forgot to ask Dr. Persaud when I should start taking my warfare again and he's going to be off for a while, so I thought I'd better try and find out now. [phone], thank you. * Telephone Encounter - Magalis Harris MA - 02/08/2025 12:29 PM EDT Copied from : The is the [facility] pharmacy calling concerning the prescriptions for Wilda Sen birthday [id number] have a prescription for Roberto F on [...] you so much by. documented in this encounterKindred HospitalRdpedvsahi18-77-9348 Evaluation note* Diagnosis Type 2 diabetes mellitus with stage 3a chronic kidney disease, without long-term current use of insulin (HCC) ([facility]/HCC) documented in this encounter [facility] HospitalBxbspnwgnz00-72-7273 History of Present illness Narrative* Felicia Thornton DO - 08/04/2024 1:00 PM EST Images [...] scrubs were recommended. documented in this encounterKindred HospitalIaamavnkqt55-28-6081 Evaluation note* Diagnosis Glaucoma suspect of both eyes- Primary Unspecified preglaucoma Type 2 diabetes mellitus with stage 3a chronic kidney disease, without long-term current use of insulin (HCC) ([facility]/HCC) Dry eyes Unspecified tear film insufficiency Blepharitis of upper and lower eyelids of both eyes, unspecified type documented in this encounter [facility] HospitalXxsnpgruxa03-91-4072 Hospital Discharge instructions Patient Education 07/12/2024 11:44:44 [...] include: ?8 oz (237 mL) of milk, lkyzpra-rackvfixzhhx-kbffm milk, and calcium- fortifiedfruit juice. Calcium-fortified means [...] ?Spinach (cooked), rhubarb, beets, sweet potatoes, and Venezuelan chard. ?Peanuts. ?Potato chips, vatican citizen fries, and baked potatoes with skin on. ?Nuts and nut products. ?Chocolate. If you regularly take a diuretic medicine, make sure to eat at least 1 or 2 servings of fruits or vegetables that are high in potassium each day. These include: ?Avocado. ?Banana. ?[place], prune, carrot, or tomato juice. ?Baked potato. [...] magnesium, fish oil, or vitamin B6. Take yysw-ghk-aufgpus and prescription medicines only as told by [...] provider. Document Revised: 10/10/2022 Document Reviewed: 10/10/2022 [employer] Patient Education 2023 [employer]. Follow Up Care 02/03/2023 12:01:32 With:CORA AGUIAR, Eugenia Venegas, URL Address: [facility] [employer] [address] [place] [address]- When: Unknown [facility] [id number] NotePatient Education Nephrology Dietary Guidelines to Help [...] ? 8 oz (237 mL) of milk, sxktlun-xnipjjvfcpfl-jkzod milk, and calcium- fortifiedfruit juice. Calcium-fortified means [...] Spinach (cooked), rhubarb, beets, sweet potatoes, and Venezuelan chard. ? Peanuts. ? Potato chips, vatican citizen fries, and baked potatoes with skin on. ? Nuts and nut products. ? Chocolate. ??? If you regularly take a diuretic medicine, make sure to eat at least 1 or 2 servings of fruits or vegetables that are high in potassium each day. These include: ? Avocado. ? Banana. ? [place], prune, carrot, or tomato juice. ? Baked [...] fish oil, or vitamin B6. ??? Take djjh-msg-tncgslj and prescription medicines only as told by your health (more content not included)...[facility]12-19-2024 Telephone encounter Note* Telephone Encounter - [...] her INR after the new year holiday. Kindred HospitalBlganpknvh54-27-6653 Miscellaneous Notes* Telephone Encounter - Jayme Perez [...] about 2 weeks. documented in this encounterKindred HospitalPdnnpuipij91-16-0485 Telephone encounter Note* Telephone Encounter - Angeles Bonilla - 06/17/2024 9:11 AM EST Left voicemail to continue current dose and recheck in about 2 weeks Kindred HospitalJchhikufza14-09-1014 Telephone encounter Note* Telephone Encounter - Jayme Perez MD - 06/17/2024 7:12 AM EST She is right on the border of the elevated. I would just continue the same dose and get rechecked it again in about 2 weeks. [facility] HospitalAskvlssbvj66-93-7110 History of Present illness Narrative* Jamye Perez MD - 04/15/2024 2:30 PM EDT [...] stable, comanaged with Cardiology. Asymptomatic. 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 We discussed how [...] tablet; Refill: 0 documented in this encounterKindred HospitalOsxiwihvph66-35-1553 Hospital Discharge instructions Patient Education 10/14/2023 09:33:38 [...] include: ?8 oz (237 mL) of milk, sgmbrlq-fcerylttdzgl-vqfqk milk, and calcium- fortifiedfruit juice. Calcium-fortified means [...] ?Spinach (cooked), rhubarb, beets, sweet potatoes, and Venezuelan chard. ?Peanuts. ?Potato chips, v[place] citizen fries, and baked potatoes with skin on. ?Nuts and nut products. ?Chocolate. If you regularly take a diuretic medicine, make sure to eat at least 1 or 2 servings of fruits or vegetables that are high in potassium each day. These include: ?Avocado. ?Banana. ?[place], prune, carrot, or tomato juice. ?Baked potato. [...] magnesium, fish oil, or vitamin B6. Take nrfp-qce-szqirrf and prescription medicines only as told by [...] provider. Document Revised: 10/10/2022 Document Reviewed: 10/10/2022 [employer]est Patient Education 2022 [employer]. Follow Up Care 08/13/2023 10:19:44 With:CORA AGUIAR, Eugenia Venegas, URL Address: [facility] [place] [id number]- When: Unknown [facility] [id number] Hospital Discharge instructions Patient Education 08/13/2023 11:34:50 [...] including vitamins, herbs, eye drops, creams, and wbnn-cdv-ffiixku medicines. Any problems you or family members [...] provider tells you to take them. ?Taking vpsb-dpb-vjsroob medicines, vitamins, herbs, and supplements. Eating and [...] provider. Document Revised: 11/06/2022 Document Reviewed: 03/04/2022 [employer] Patient Education 2022 [employer] Follow Up Care 08/12/2023 14:37:00 With:ANGELITO AGUIAR, Renato Arzola, URL Address: [facility] [address] , [place] [address]- [phone] When: Unknown Comments:sched ureteroscopyf/u w/ [facility] scheduled 10/14/23 [facility] 01-25-2024 History of Present illness Narrative* Jayme [...] disease. 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 Discussed diagnosis with patient in detail. Advised that this is a viral illness and antibiotics are not indicated. Discussed importance of adequate hydration and signs of respiratory distress in great detail. Supportive care as directed rx of steroid and [place], cool mist humidification. May use Tylenol as directed. Immediateeval for signs of respiratory distress, difficulty breathing poor PO intake, signs of dehydration, fever, or other concerning symptoms. Otherwise, follow up with PCP in 2-3 days. Patient verbalizes understanding and is agreeable to treatment plan. Patient sent home in stable condition. [place] Other 08-11-2022 NotePROCEDURE: XR FOOT LT MIN 3 VIEWS COMPARISON: None. HISTORY: Pain in left foot FINDINGS: BONES:No acute fracture or dislocation. Mild enthesopathic spurring of the calcaneus. SOFT TISSUES:Negative. No visible soft tissue swelling. EFFUSION:None visible. OTHER: Negative. IMPRESSION: Mild enthesopathic spurring of the calcaneus Electronically authenticated by: BLANCA ZAVALA Date: 2022-02-21 07:28[facility] Future Appointments Appointment Date:07/12/2024 10:45:00 AM Scheduled Provider:CORA AGUIAR, Eugenia Venegas Location:[facility] Appointment Type:URO Office Visit [facility] Evaluation + Plan note Future Appointments Appointment Date:07/12/2024 10:45:00 AM Scheduled Provider:Eugenia JACKSON MD [facility] App[facility] Type:URO Office Visit Diagnostic Tests Pending * Calculi Analysis [facility] Future Appointments Appointment Date:10/14/2023 09:15:00 AM Scheduled Provider:Eugenia JACKSON MD Location:[facility] Appointment Type:URO Office Visit Appointment Date:07/12/2024 10:45:00 AM Scheduled Provider:Eugenia JACKSON MD Location:[facility] Appointment Type:URO Office Visit [facility] evaluation noteNort Callisto[employer] Other evaluation noteNo assessment information available 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 Psoriatic arthropathy ([facility]/HCC) Psoriatic arthropathy Gastroesophageal reflux disease without esophagitis Esophageal reflux documented in this encounter [facility] HealthcareEvaluation note* Diagnosis Paroxysmal atrial fibrillation (CMS/HCC)- Primary Atrial fibrillation retirement current use of anticoagulant Type 2 diabetes mellitus with stage 3a chronic kidney disease, without long-term current use of insulin (HCC) (CMS/HCC) Stage 3a chronic kidney disease (HCC) (CMS/HCC) Microalbuminuria Proteinuria Unexplained weight loss Loss of weight Chronic fatigue Other malaise and fatigue Sleep arousal disorder documented in this encounter [facility] HealthcareEvaluation note* Diagnosis Type 2 diabetes mellitus with stage 3a chronic kidney disease, without long-term current use of insulin (HCC) ([facility]/HCC) documented [facility] encounter [facility]* Diagnosis Paroxysmal atrial fibrillation ([facility]/HCC) Atrial fibrillation documented in this encounter [facility]* Diagnosis Type 2 diabetes mellitus with diabetic microalbuminuria, without long-term current use of insulin ([facility])- Primary Encounter for Medicare annual wellness exam [...] of iron metabolism Chronic diastolic heart failure ([facility]) Chronic diastolic heart failure Paroxysmal atrial fibrillation ([facility]) Atrial fibrillation Stage 3a chronic kidney disease (HCC) ([facility]) Age-related osteoporosis without current pathological fracture ([facility]) Psoriatic arthropathy ([facility]) Psoriatic arthropathy Type 2 diabetes mellitus with stage 3a chronic kidney disease, without long-term current use of insulin ([facility]) ([facility]) Type 2 diabetes mellitus with diabetic microalbuminuria, without long-term current use of insulin ([facility]) Immunosuppressed status ([facility]) documented in [facility] encounter [facility]* Diagnosis Vertigo- Primary Dizziness and giddiness documented in this encounter [facility]* Diagnosis Vertigo- Primary Dizziness and giddiness documented in this encounter [facility]* Diagnosis Vertigo- Primary Dizziness and giddiness documented in this encounter [facility]* Diagnosis Vertigo- Primary Dizziness and giddiness Paroxysmal atrial fibrillation (HCC) Atrial fibrillation 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 Medication monitoring encounter Encounter for therapeutic drug monitoring documented in this encounter [facility]* Diagnosis Vertigo- Primary Dizziness and giddiness documented in this encounter [facility]* Diagnosis Vertigo- Primary Dizziness and giddiness documented in this encounter [facility]* Diagnosis Kidney stone on left side documented in this encounter [facility]* Diagnosis Kidney stone on left side- Primary Hospital discharge follow-up Other follow-up examination documented in this encounter [facility] HealthcareHistory general Narrative - ReportedNort [employer]isto[employer] Other History general Narrative - Reported* Type Description Date Medical History Arthritis Medical Historydiabetes mallitusSurgical Historycataract surgery [facility] Other Hospital course Narrative No data available for this section [facility] Hospital Discharge instructions No data available for this section [facility] Hospital Discharge instructions Additional Instructions DISCHARGE INSTRUCTIONS [...] X- Ray) in about six months. [ ][facility] Work Phone: Progress note No data available for this section [facility] Reason for referral (narrative)No reason for referral information availableGerman [facility] Ctr Work Phone: Reason for visit Narrative* Rehabilitation - Outpatient (Routine) - AuthorizedSpecialtyDiagnoses / ProceduresReferred By ContactReferred To ContactPhysical Therapy Diagnoses Vertigo Procedures [place] OFFICE/OUTPATIENT NEW HIGH MDM 60 MINUTES Jayme Perez MD [address] [place] [address] Phone: tel: fax: Joselyn Narvaez, PT Referral IDStatusReasonStart DateExpiration DateVisits RequestedVisits [id number] Specialty Services Required / [facility] HealthcareReason for visit Narrative* Rehabilitation - Outpatient (Routine) - AuthorizedSpecialtyDiagnoses / ProceduresReferred By ContactReferred To ContactPhysical Therapy Diagnoses Vertigo Procedures [place] OFFICE/OUTPATIENT NEW HIGH MDM 60 MINUTES Jayme Perez MD [address] [place] [address] Phone: tel: fax: Joselyn Narvaez, PT Referral IDStatusReasonStart DateExpiration DateVisits RequestedVisits [id number] Specialty Services Required / [facility] Healthcare Summary Purpose Family History Relationship Condition Age at Onset Recorded Date/T ramiro Not Specified Heart disease Unknown fatherCystic fibrosisUnknown Relationship Condition Age at Onset Recorded Date/T ramiro mother Heart disease Unknown fatherCystic fibrosisUnknownfatherDeceasedUnknownmotherDeceasedUnknown Advance Directives Advance Directive Response Recorded Date/ [...] content) DATE CREATED AUTHOR 12/20/2022 [facility] DATE CREATED AUTHOR AUTHOR'S ORGANIZ ATION 02/09/2025 [facility] DATE CREATED AUTHOR AUTHOR'S ORGANIZ ATION 02/24/2025 [facility] DATE CREATED AUTHOR AUTHOR'S ORGANIZ ATION 02/26/2025 [facility] Patient Care team informatio n (unrecognized section and content) Team Status: Active Member Role Status Dates Jayme Perez MD Primary Care Provider Active Team Status: Inactive Member Role Status Dates Jayme Perez MD Primary Care Provider Active Eugenia [facility] ProviderActiveTeam MemberRelationshipSpecialtyStart DateEnd Date Jayme Perez MD [address] [place] [address] (Fax) PCP - Generalmily Medicine11/25/22 Jayme Perez MD [address] [place] [address] (Fax) PCP - [facility]12/05/22Team MemberRelationshipSpecialtyStart DateEnd Date Jayme Perez MD [address] [place] [address] (Fax) PCP - Generalmi Medicine11/25/22 Jayme Perez MD [address] [place] [address] (Fax) PCP - [facility]12/05/22 Team Status: Inactive Member Role Status Dates Jayme Perez MD Primary Care Provider Active Start: March 31, 2024 End: March 31, 2024MattAlia Owusu ProviderActiveStart: March 31, 2024 End: March 31, 2024Team MemberRelationshipSpecialtyStart DateEnd Date Jayme Perez MD [address] [place] [phone] (Fax) PCP - [facility]11/25/22 Jayme Perez MD [address] [place] [phone] (Fax) PCP - [facility]12/05/22 Felicia Thornton DO [address] [place] [address] [address] [place] [phone] Referring PhysicianOphthalmology2 Renato Eaton MD [address] [place] [phone] Referring PhysicianUrolog08/21/23 Radames Monteiro MD [address] [facility] Professional [address] [place] [phone] Referring PhysicianRheumatolog08/21/23Team MemberRelationshipSpecialtyStart Date End Date Jayme Perez MD [address] [place] [address] (Fax) PCP - [facility]11/25/22 Jayme Perez MD [address] [place] [address] (Fax) PCP - [facility]12/05/22 Felicia Thornton DO [address] [place] [address] Referring PhysicianOphthalmology08/21/23 Renato Eaton MD [address] [place] [phone] Referring PhysicianUrolog08/21/23 Radames Monteiro MD [address] [place] [phone] Referring PhysicianRheumatolog08/21/23Team MemberRelationshipSpecialtyStart Date End Date Jayme Perez MD [address] [place] [place] [phone] (Fax) PCP - GeneralFamily Medicine11/25/22 Jayme Perez MD [address] [place] [address] (Fax) PCP - [facility]12/05/22 Felicia Thornton DO [address] [place] [address] Referring PhysicianOphthalmology08/21/23 Renato Eaton MD [address] [place] [phone] Referring PhysicianUrolog08/21/23 Radames Monteiro MD [address] [place] [phone] Referring PhysicianRheumatology2Team MemberRelationshipSpecialtyStart Date End Date Jayme Perez MD [address] [address] (Fax) PCP - GeneralFamily Medicine11/25/22 Jayme Perez MD [address] [address] (Fax) PCP - [facility]12/05/22 Felicia Thornton DO [address] [place] [phone] Referring PhysicianOphthalmology2 Renato Eaton MD [address] [place] [address] Referring PhysicianUrolog08/21/23 Radames Monteiro MD [address] [facility] Professional building [address] [place] [phone] Referring PhysicianRheumatology2Team MemberRelationshipSpecialtyStart Date End Date Jayme Perez MD [address] [place] [address] (Fax) PCP - GeneralFamily Medicine11/25/22 Jayme Perez MD [address] [place] [address] (Fax) PCP - [facility]12/05/22 Felicia Thornton DO [address] [place] [address] Referring PhysicianOphthalmology08/21/23 Renato Eaton MD [address] [place] [address] Referring PhysicianUrolog08/21/23 Radames Monteiro MD [address] [facility] Professional building [address] [place] [phone] Referring PhysicianRheumatolog08/21/23Team MemberRelationshipSpecialtyStart Date End Date Jayme Perez MD [address] [place] [address] (Fax) PCP - GeneralFamily Medicine11/25/22 Jayme Perez MD [address] [place] [address] (Fax) PCP - [facility]12/05/22 Felicia Thornton DO [address] [place] [address] Referring PhysicianOphthalmology08/21/23 Renato Eaton MD [address] [place] [address] Referring PhysicianUrolog08/21/23 Radames Monteiro MD [address] [facility] Professional building [address] [place] [phone] Referring PhysicianRheumatolog08/21/23Team MemberRelationshipSpecialtyStart Date End Date Jayme Perez MD [address] [place] [address] (Fax) PCP - Generalmily Medicine11/25/22 Jayme Perez MD [address] [place] [address] (Fax) PCP - [facility]12/05/22 Felicia Thornton, DO [address] [place] [address] Referring PhysicianOphthalmology08/21/23 Renato Eaton MD [address] [place] [address] Referring PhysicianUrolog08/21/23 Radames Monteiro MD [address] [facility] Professional building [address] [place] [phone] Referring PhysicianRheumatolog08/21/23Team MemberRelationshipSpecialtyStart Date End Date Jayme Perez MD [address] [place] [address] (Fax) [facility]CP - [facility]Cl[facility]ally [facility]11/25/22 Jayme Perez MD [address] [place] [address] (Fax) PCP - [facility]12/05/22 Felicia Thornton DO [address] [place] [address] Referring PhysicianOphthalmology08/21/23 Renato Eaton MD [address] [place] [phone] Referring PhysicianUrology2 Radames Monteiro MD [address] [facility] Professional [address] [place] [phone] Referring PhysicianRheumatolog08/21/23Team MemberRelationshipSpecialtyStart Date End Date Jayme Perez MD [address] [place] [address] (Fax) PCP - GeneralFamily Medicine11/25/22 Jayme Perez MD [address] [place] [address] (Fax) PCP - [facility]12/05/22 Felicia Thornton DO [facility] [address] [place] [address] Referring PhysicianOphthalmology08/21/23 Renato Eaton MD [address] [place] [phone] Referring PhysicianUrolog08/21/23 Radames Monteiro MD [address] [facility] [address] [place] [phone] Referring PhysicianRheumatolog08/21/23Team MemberRelationshipSpecialtyStart Date End Date Jayme Perez MD [address] [place] [address] (Fax) PCP - GeneralFamily Medicine11/25/22 Jayme Perez MD [address] [place] [address] (Fax) PCP - [facility]12/05/22 Felicia Thornton DO [address] [place] [address] Referring PhysicianOphthalmology08/21/23 Renato Eaton MD [address] [place] [address] Referring PhysicianUrolog08/21/23 Radames Monteiro MD [address] [facility] [address] [phone] Referring PhysicianRheumatolog08/21/23Team MemberRelationshipSpecialtyStart Date End Date Jayme Perez MD [address] [facility] [address] [place] [address] (Fax) PCP - [facility]Cl[facility]ally Medicine11/25/22 Jayme Perez MD [address] [place] [address] (Fax) PCP - O [facility]12/05/22 Felicia Thornton DO [address] [place] [address] Referring PhysicianOphthalmology08/21/23 Renato Eaton MD [address] [place] [address] Referring PhysicianUrology2 Radames Monteiro MD [address] [facility] Professional [address] [place] [address] Referring PhysicianRheumatology2Team MemberRelationshipSpecialtyStart Date End Date Jayme Perez MD [address] [place] [address] (Fax) [facility]11/25/22 Jayme Perez MD [address] [place] [address] (Fax) PCP - [facility]12/05/22 Felicia Thornton DO [address] [place] [phone] Referring PhysicianOphthalmology2 Renato Eaton MD [address] [place] [phone] Referring PhysicianUrolog08/21/23 Radames Monteiro MD [address] [facility] [address] [place] [phone] Referring PhysicianRheumatology2Team MemberRelationshipSpecialtyStart Date End Date Jayme Perez MD [address] [place] [address] (Fax) [facility] - [facility] Medicine11/25/22 Jayme Perez MD [address] [place] [address] (Fax) PCP - [facility]12/05/22 Felicia Thornton DO [address] [place] [address] Referring PhysicianOphthalmology08/21/23 Renato Eaton MD [address] [place], [place] [phone] Referring PhysicianUrolog08/21/23 Radames Monteiro MD [address] [place] [address] Referring PhysicianRheumatolog08/21/23Team MemberRelationshipSpecialtyStart Date End Date Jayme Perez MD [address] [place] [address] (Fax) PCP - Generalmily Medicine11/25/22 Jayme Perez MD [address] [place] [address] (Fax) PCP - [facility]12/05/22 Felicia Thornton DO [address] [place] [address] Referring PhysicianOphthalmology08/21/23 Renato Eaton MD [address] [place] [address] Referring PhysicianUrolog08/21/23 Radames Monteiro MD [address] [place] [address] Referring PhysicianRheumatology2Team MemberRelationshipSpecialtyStart Date End Date Jayme Perez MD [address] [address] (Fax) PCP - GeneralFamily Medicine11/25/22 Jayme Perez MD [address] [address] (Fax) PCP - [facility]12/05/22 Felicia Thornton DO [address] [place] [address] Referring PhysicianOphthalmology08/21/23 Renato Eaton MD [address] [place], [place] [phone] Referring PhysicianUrolog08/21/23 Radames Monteiro MD [address] [facility] Professional building [address] [place] [phone] Referring PhysicianRheumatology2Team MemberRelationshipSpecialtyStart Date End Date Jayme Perez MD [address] [address] (Fax) PCP - Generalmily Medicine11/25/22 Jayme Perez MD [address] [address] (Fax) PCP - [facility]12/05/22 Felicia Thornton DO [address] [place] [address] Referring PhysicianOphthalmology08/21/23 Renato Eaton MD [address] [place] [address] Referring PhysicianUrology2 Radames Monteiro MD [address] [facility] [address] [place] [address] Referring PhysicianRheumatology2Team MemberRelationshipSpecialtyStart Date End Date Jayme Perez MD [address] [address] (Fax) PCP - GeneralFamily Medicine11/25/22 Jayme Perez MD 112 [facility] [address] [place] [address] (Fax) PCP - [facility]12/05/22 Felicia Thornton DO [address] [place] [address] [address] [place] [address] Referring PhysicianOphthalmology08/21/23 Renato Eaton MD [address] [place] [phone] Referring PhysicianUrology2 Radames Monteiro MD [address] [facility] [address] [place] [phone] Referring PhysicianRheumatology2Team MemberRelationshipSpecialtyStart Date End Date Jayme Perez MD [address] [place] [address] 100 [place] [address] (Fax) PCP - GeneralFamily Medicine11/25/22 Jayme Perez MD [address] [address] (Fax) PCP - [facility]12/05/22 Felicia Thornton DO [address] [place] [address] Referring PhysicianOphthalmology08/21/23 Renato Eaton MD [address] [place] [address] Referring PhysicianUrolog08/21/23 Radames Monteiro MD [address] [facility] Professional building [address] [place] [phone] Referring PhysicianRheumatolog08/21/23Team MemberRelationshipSpecialtyStart Date End Date Jayme Perez MD [address] [address] (Fax) PCP - GeneralFamily Medicine11/25/22 Jayme Perez MD [address] [address] (Fax) PCP - [facility]12/05/22 Felicia Thornton DO [address] [place] [address] Referring PhysicianOphthalmology08/21/23 Renato Eaton MD [address] [place] [address] Referring PhysicianUrology2 Radames Monteiro MD [address] [facility] Professional [address] [place] [address] Referring PhysicianRheumatology2Team MemberRelationshipSpecialtyStart Date End Date Jayme Perez MD [address] [facility] [address] [place] [address] (Fax) PCP - GeneralFamily Medicine11/25/22 Jayme Perez MD [address] [address] (Fax) PCP - [facility]12/05/22 Felicia Thornton DO [address] [place] [address] [address] [place] [address] Referring PhysicianOphthalmology08/21/23 Renato Eaton MD [address] [place] [address] Referring PhysicianUrology2 Radames Monteiro MD [address] [facility] Professional building [address] [place] [phone] Referring PhysicianRheumatology2Team MemberRelationshipSpecialtyStart Date End Date Jayme Perez MD [address] [facility] [address] [place] [address] (Fax) PCP - GeneralFamily Medicine11/25/22 Jayme Perez MD [address] [address] PCP - ACO Reach12/05/22 Felicia Thornton DO [address] [place] [address] Referring PhysicianOphthalmology08/21/23 Renato Eaton MD [address] [place] [phone] Referring PhysicianUrolog08/21/23 Radames Monteiro MD [address] [facility] [address] [place] [address] Referring PhysicianRheumatolog08/21/23Team MemberRelationshipSpecialtyStart Date End Date Jayme Perez MD [address] [place] [address] (Fax) PCP - GeneralFamily Medicine11/25/22 Jayme Perez MD [address] [place] [address] (Fax) PCP - ACO Reach12/05/22 Felicia Thornton DO [address] [place] [address] Referring PhysicianOphthalmology08/21/23 Renato Eaton MD [address] [place] [address] Referring PhysicianUrolog08/21/23 Radames Monteiro MD [address] Professional [address] [place] [address] Referring PhysicianRheumatology2Team MemberRelationshipSpecialtyStart Date End Date Jayme Perez MD [address] [address] (Fax) PCP - GeneralFamily Medicine11/25/22 Jayme Perez MD [address] [address] (Fax) PCP - ACO Reach12/05/22 Felicia Thornton DO [address] [place] [address] Referring PhysicianOphthalmology2 Renato Eaton MD [address] [place], [place] [phone] Referring PhysicianUrolog08/21/23 Radames Monteiro MD [address] [facility] Professional [address] [phone] Referring PhysicianRheumatology2Team MemberRelationshipSpecialtyStart Date End Date Jayme Perez MD [address] [address] (Fax) PCP - GeneralFamily Medicine11/25/22 Jayme Perez MD [address] [address] (Fax) PCP - ACO Reach12/05/22 Felicia Thornton DO [address] [place] [address] Referring PhysicianOphthalmology08/21/23 Renato Eaton MD [address] [place] [phone] Referring PhysicianUrolog08/21/23 Radames Monteiro MD [address] Professional building [address] [place] [address] Referring PhysicianRheumatolog08/21/23 Team Status: Inactive Member Role Status Dates Lobito Tapia DO Attending Provider Active S tart: February 04, 2025 End: February 04, 2025Team MemberRelationshipSpecialtyStart DateEnd Date Jayme Perez MD [address] [place] [address] PCP - GeneralFamily Medicine11/25/22 Jayme Perez MD [address] [place] [address] (Fax) PCP - ACO [facility]12/05/22 Felicia Thornton DO [address] [place] [address] Referring PhysicianOphthalmology08/21/23 Renato Eaton MD [address] [place] [address] Referring PhysicianUrolog08/21/23 Radames Monteiro MD [address] [facility] Professional building [address] [place] [phone] Referring PhysicianRheumatolog08/21/23 Team Status: Inactive Member Role Status Dates Jayme Perez MD Primary Care Provider Active Start: February 11, 2025 End: February 11murphyra Hermosillo ZENBCAttending ProviderActiveStart: February 11, 2025 End: February 11, 2025 Team Status: Inactive Member Role Status Dates Jayme Perez MD Primary Care Provider Active Start: February 14, 2025 End: February 14, 2025Eugenia Jackson MDAttparish ProviderActiveStart: February 14, 2025 End: February 14, 2025Team MemberRelationshipSpecialtyStart DateEnd Date Jayme Perez MD [address] [place] [address] (Fax) PCP - GeneralFamily Medicine11/25/22 Jayme Perez MD [address] [place] [address] (Fax) PCP - ACO Reach12/05/22 Felicia Thornton DO [address] [place] [address] Referring PhysicianOphthalmology08/21/23 Renato Eaton MD [address] [place] [phone] Referring PhysicianUrolog08/21/23 Radames Monteiro MD [address] [facility] Professional building [address] [place] [phone] Referring PhysicianRheumatolog08/21/23Team MemberRelationshipSpecialtyStart Date End Date Jayme Perez MD [address] [place] [address] (Fax) PCP - GeneralFamily Medicine11/25/22 Jayme Perez MD [address] [place] [address] (Fax) PCP - ACO Reach12/05/22 Felicia Thornton, DO [address] [place] [address] Referring PhysicianOphthalmology08/21/23 Renato Eaton MD [address] [place] [address] Referring PhysicianUrolog08/21/23 Radames Monteiro MD [address] [facility] Professional building [address] [place] [address] Referring PhysicianRheumatolog08/21/23 Rebeca Emerson, LAUNDRY SORTER [address] [place] [address] Social WorkerWest[facility] Hospital Medicine03/04/25Team MemberRelationshipSpecialtyStart DateEnd Date Jayme Perez MD [address] [place] [address] (Fax) PCP - GeneralFamily Medicine11/25/22 Jayme Perez MD [address] [place] [address] (Fax) PCP - ACO Reach12/05/22 Felicia Thornton, DO [address] [place] [address] Referring PhysicianOphthalmology08/21/23 Renato Eaton MD [address] [place] [address] Referring PhysicianUrolog08/21/23 Radames Monteiro MD [address] Professional building [address] [place] [address] Referring PhysicianRheumatolog08/21/23 Rebeca Emerson, DINA [address] [place] [address] Social WorkerFamily MedicineTeam MemberRelationshipSpecialtyStart DateEnd Date Jayme Perez MD [address] [place] [address] (Fax) PCP - GeneralFamily Medicine11/25/22 Jayme Perez MD [address] [place] [address] PCP - ACO Reach12/05/22 Felicia Thornton DO [address] [place] [address] Referring PhysicianOphthalmology08/21/23 Renato Eaton MD [address] [place] [address] Referring PhysicianUrolog08/21/23 Radames Monteiro MD [address] Professional [address] [place] [phone] Referring PhysicianRheumatolog08/21/23 Rebeca Emerson LSW [address] [facility] [place] [address] Social WorkerFahudson hospital Medicine/ Goals (unrecognized section and content) Goals may be documented in a n alternate section REASON FOR VISIT (unrecogniz ed section and content) ReasonCommentsHyperlipidemiaDiabetesReasonCommentsAtrial FibrillationDiabetes ReasonCommentsMed RefillReasonCommentsDiabetic Eye ExamReasonCommentsAnnual Exam ReasonCommentsVertigoReasonCommentsVertigoReasonCommentsMed Change RequestReason CommentsFollow-up FOR RECORDS PERTAINING TO PATIENTS WHO ARE [...] BE BASED ON THE PRIMARY CLINICAL RECORDS. [facility] [employer] [facility]. provides no warranty or guarantee of the accuracy or completeness of information in this document.
[2025-05-20 16:32] LABS: INR 2.12; Prothrombin Time 20.9 sec (9.0-11.6)
== END 2025-05-20 16:07 | disposition home or self-care (01) ==
LOC: LAB 16:07
PROVIDERS: PCP Family Medicine; Visit Provider Family Medicine
DX: I48.0 Paroxysmal atrial fibrillation (principal); Z79.01 Long term (current) use of anticoagulants; Z51.81 Encounter for therapeutic drug level monitoring
CPT/HCPCS: 36415; 85610

== ENCOUNTER 2025-05-30 09:41 | Outpatient (OUT) | payer MEDICARE, SELFPAY ==
--- OUTSIDE RECORDS SUMMARY | 2025-05-30 09:57 | XMS_ITS | CCD ---
Author Organization [facility] Care Team Providers Care Attendance Secretary Name Role Phone Astrid Baker Unavailable CAYETANO, [...] ., DR MCKINNEY Attending Unavailable HEMEYER ., EDGANESH Primary Care Unavailable HEMEYER ., DR MCKINNEY Admitting Unavailable HEMEYER ., DR MCKINNEY Consulting Unavailable HEMEYER ., DR MCKINNEY Admitting Unavailable HEMEYER ., DR MCKINNEY Attending Unavailable HEMEYER ., DR MCKINNEY Primary Care Unavailable HEMEYER ., DR MCKINNEY Consulting Unavailable HEMEYER ., EDGANESH Admitting Unavailable HEMEYER ., DR MCKINNEY Attending Unavailable HEMEYER ., EDGANESH Primary Care Unavailable JAYME PEREZ Primary Care Physician Unavail able MD Jayme Perez Primary Care Provider MD Eugenia Jackson Attending Provider [phone] Lou Glover Unavailable Jayme Perez MD Primary Care Provider Jayme Perez MD Unavailable MD Jayme Perez Primary Care Provider MD Radames Monteiro Attending Provider Felicia Thornton DO Unavailable Renato Eaton MD Unavailable [phone] Radames Monteiro MD Unavailable [phone] Jayme Perez MD Primary Care Provider Jayme Perez MD Unavailable Jayme Perez MD Primary Care Provider Jayme Perez MD Unavailable [phone] Lobito Tapia DO Attending Provider [phone] Jayme Perez MD Primary Care Provider [place] [facility] Attending Provider [phone] Eugenia Jackson MD Attending Provider [phone] Eugenia JACKSON Attending Unavailable Eugenia JACKSON Referring Unavailable Eugenia JACKSON Attending Unavailable Eugenia JACKSON Attending Unavailable Lobito Tapia Admitting Unavailable Lobito Tapia Attending Unavailable Hemeyer, Edward J Primary Care Unavailable Radames Monteiro Admitting Unavailable Radames Monteiro Attending Unavailable Kristie Hermosillo Attending Unavailable Hemeyer, Edward Yasemin Primary Care Unavailable Kristie Hermosillo Admitting Unavailable Hemeyer, Edward J Primary Care Unavailable Eugenia Jackson Admitting Unavailable Eugenia Jackson Attending Unavailable Idania RADIATION PROTECTION TECHNICIAN, Rebeca Unavailable Angelito AGUIAR, Renato Arzola Unavailable Cayetano AGUIAR, Radames La Unavailable [phone] Idania RADIATION PROTECTION TECHNICIAN, Rebeca Unavailable [phone] FELICIA THORNTON Attending Unavailable HEMEYER, EDWARD J Attending Unavailable HEMEYER, EDWARD J Attending Unavailable HEMEYER, EDWARD J Attending Unavailable JOSELYN NARVAEZ Attending Unavailable HEMEYER, EDWARD J Referring Unavailable KELBLEY, CLARA Attending Unavailable HEMEYER, EDWARD J Referring Unavailable KELBLEY, CLARA Attending Unavailable HEMEYER, EDWARD J Referring Unavailable KELBLEY, CLARA Attending Unavailable HEMEYER, EDWARD J Referring Unavailable HEMEYER, EDWARD J Attending Unavailable HEMEYER, EDWARD J Referring Unavailable HEMEYER, EDWARD J Attending Unavailable HEMEYER, EDWARD J Attending Unavailable Allergies Allergy ClassificationReported Allergen(s)Allergy TypeDate of OnsetReaction(s) Facility (20 sources)Ciprofloxacin; Translations: [ciprofloxacin]Drug Ouylqni54-13-1159 anaphylaxis, Unknown (qualifier value)[facility] (1 source)sulfaSALAzineDrug AllergySouth Florida Baptist Hospital [employer] Other (1 source)CiprofloxacinDrug Oypdinb77-99-2425BmlC[facility] (2 sources)Ketorolac; Translations: [Toradol]Drug Ljlzlck34-75-7350RlwC[facility] Rep[facility] (2 sources)metroNIDAZOLE; Translations: [MetroGel]Drug Objlzgq23-14-3251LxfC[facility] (1 source)NSAIDsDrug allergy (disorder)04-55-9383PhwC[facility] (2 sources)pioglitazone; Translations: [Actos]Drug Qeiylzv11-18-9282MugC[facility] (1 source)Sulfonamides (Antibiotic)Drug allergy (disorder)85-46-8519Hrl [facility] Repository (16 sources)Ketorolac; Translations: [ketorolac]Drug Uqurtub19-92-5683Loypqgk (qualifier value), Nausea (finding)[facility] on above:Severe (20 sources)Latex; Translations: [Latex]Drug cdyrrhk34-89-2630Qcbzbyl of skin AND/OR mucosa (finding)[facility] (20 sources)Non-steroidal anti-inflammatory agent; Translations: [NSAIDs]Drug wkmxuuc98-08-5335Rwdtmjq (qualifier value)[facility] (20 sources)pioglitazone; Translations: [pioglitazone]Drug Fqifiaz30-44-1043 Unknown (qualifier value)[facility] (6 sources)Sulfonamides (Antibiotic); Translations: [sulfa drugs]Drug allergy Unknown (qualifier value)[facility] (20 sources)metroNIDAZOLE; Translations: [Metronidazole]Drug Swuwsvj82-25-1772 [facility] (6 sources)Sulfonamides (Antibiotic); Translations: [Sulfa (Sulfonamide Antibiotics)]Allergy to erwnjabcv58-85-1188RxhyDrquecjbqHolzer Medical Center – [facility] (6 sources)NSAIDS (Non-Steroidal Anti-Inflamma; Translations: [NSAIDS (Non- Steroidal Anti-Inflamma]Allergy to lqkxepofe10-02-7603Jbcajutbjha, Anaphylaxis, rashOhiohealth (1 source)Non-steroidal anti-inflammatory agentDrug allergyrashNFrench Hospital [employer] Other (20 sources)Substance with sulfonamide structure and antibacterial mechanism of action (substance)Drug xtbmpys81-91-7678shipMncyo Coast [employer] Other (20 sources)KetorolacAllergy to ugpmtfkny92-85-7384Nbdzui OnlyBarnes-Jewish [facility] (20 sources)Hydrocodone Bit-Homatrop MbrPropensity to adverse reactions 34-86-0594YqnncyvgcCGXE Healthcare (20 sources)Medical Adhesive RemoverDrug Taqglux31-33-9030ZUFL Healthcare (1 source)CiprofloxacinDrug Lampiyh31-41-5914AjlwokptkOhiohealth Repository (1 source)KetorolacDrug Syfsgou20-47-4407MwqzhuiuyOhiohealth Repository (1 source)pioglitazoneDrug Duuvgpf22-60-6681DbjnouqvyOhiohealth Repository Medications Current Medications MedicationDrug Class(es)DatesSig (Normalized)Sig (Original)acarbose 100 mg oral tablet (20 sources)alpha-Glucosidase InhibitorStart: 04-18-2025 End: 06-84-8719lfdu 1 tablet by mouth three times daily at mealtimeacarbose (Precose) 100 MG tablet Indications: Type 2 diabetes mellitus with stage 3a chronic kidneydisease, without long-term current use of insulin (HCC) Take 1 tablet (100 mg) by mouth 3 (three) times a day with meals 270 tablet 1 05/23/2025 11/19/2025 ActiveStart: 08-17-2019 End: 53-70-8084tpprebwz (Precose) 100 MG tablet Indications: Type 2 diabetes mellitus with stage 3a chronic kidneydisease, without long-term current use of insulin (HCC) Take 1 tablet (100 mg) by mouth in the morning and 1 tablet (100 mg) at noon and 1 tablet (100 mg) in the evening. Take with meals. 270 tablet 1 10/18/2024 04/16/2025 ActiveStart: 94-66-2555wpcuzrjx Oral, TID, Refills(s) 0 Start Date: 08/17/19 Status: OrderedAcarbose Activeacetaminophen 325 mg oral tablet (20 sources)Start: 68-23-0709Wqefcxokhrnay (Tylenol) 325 mg Tablet Active 1000 MG PO Twice daily March 26, 2023 12:00am Complies with drug therapyStart: 18-99-9591mexs 1 mg by mouth every six hoursTylenol [...] oral tablet (10 sources)Opioid AgonistStart: 08-12-2023 End: 03-66-3540cgaq 1 tablet by mouth every six hoursPercocet 5 mg-325 mg oral tablet 1 tab(s), Oral, q6hr, Refill(s) 0 Start Date: 08/13/23 Status: Ordered [id number] 200 actuat albuterol 0.09 mg/actuat metered dose inhaler (20 sources)beta2-Adrenergic AgonistStart: 07-16-2023 End: 49-91-2543zfhreqqya HFA 90 mcg/act inhaler Indications: Chronic obstructive pulmonary disease with acute exacerbation (HCC) Inhale 2 puffs in the morning and 2 puffs at noon and 2 puffs in the evening and 2 puffs before bedtime. 18 g 07/16/2023 ActiveStart: 79-59-5407Twuhu: 12-72-2227zlqw 2 puff(s) by inhalation every four hours as neededAlbuterol Sulfate HFA 108 (90 Base) MCG/ACT 2 puffs as needed Inhalation every 4 hrs May, Not-Taking/PRNAscorbic Acid / Zinc Sulfate (4 sources)Vitamin CStart: 61-26-3817lhia 1 tablet by mouth once dailyAscorbic Acid-Zinc Sulfate (Vitamin C Plus Zinc) 200-100 mg Tablet Active 1 TAB PO every day at noon March 26, 2023 12:00am Complies with drug therapyStart: 52-62-0817wsse 1 tablet by mouth once dailyStart: 61-19-7131ixjn 1 tablet by mouth once dailyAscorbic Acid-Zinc Sulfate (Vitamin C Plus Zinc) 200-100 mg Tablet Active 1 TAB PO every day at noon March 26, 2023 12:00amaspirin 81 mg oral tablet (5 sources)Platelet Aggregation Inhibitor, Nonsteroidal Anti-inflammatory Drug Start: 31-43-1762hlps 1 mg by mouth once dailyaspirin 81 mg oral tablet mg tab(s), Oral, Daily, Refills(s) 0 Start Date: 08/17/19 Status: Orderedcalcium citrate 950 mg oral tablet (20 sources)Start: 50-49-1284iang 1 tablet by mouth three times dailyCalcium Citrate 200 mg (950 mg) Tablet Active 200 MG PO Three times daily March 26, 2023 12:00am Complies with drug therapyStart: 12-51-0777jwgg 250 mg by mouth three times dailycalcium citrate 250 mg, Oral, TID, Refills(s) 0 Start Date: 08/17/19 Status: OrderedStart: 70-80-4889natgtnq citrate Oral, BID, Refills(s) 0 Start Date: 08/17/19 Status: Orderedtake 1 tablet by mouth three times daily in the morningcalcium citrate 1040 MG tablet Take 250 mg by mouth in the morning and 250 mg in the evening and 250 mg before bedtime. 1 tablet orally three times a day. Activecephalexin 500 mg oral capsule (9 sources)Cephalosporin AntibacterialStart: 83-25-5831usny 1 capsule by mouth twice dailyStart: 08-12-2023 End: 21-55-4593nnpv 1 capsule by mouth in the morning, then take 1 capsule by mouth in the evening, then take 1 capsule by mouth at bedtimecephalexin (Keflex) 500 MG capsule Take 500 mg by mouth in the morning and 500 mg in the evening and 500 mg before bedtime. 08/12/2023 04/15/2024 Discontinued (Therapy completed) cholecalciferol 0.125 mg oral tablet (5 sources)Vitamin DStart: 69-09-4094lmtl 1 tablet by mouth once dailycinnamon bark 500 mg oral capsule (20 sources)Start: 09-55-4352ngnk 1 capsule by mouth twice dailyCinnamon Bark (Cinnamon) 500 mg Capsule Active 1000 MG PO Twice daily March 26, 2023 12:00am Complies with drug therapyCinnamon Preparation (5 sources)Non-Standardized Food Allergenic ExtractStart: 72-53-6209rrgy 1000 mg by mouth once dailycinnamon 1,000 mg, Oral, Daily Start Date: 09/19/20 Status: OrderedStart: 78-04-3393fnkh 1 mg by mouth twice dailycinnamon mg, Oral, BID Start Date: 09/19/20 Status: OrderedCyanocobalamin-Liver Extract (Vitamin B12- Liver) Tablet (5 sources)Start: 91-19-5638ysza 1 tablet by mouth once dailyCyanocobalamin- Liver Extract (Vitamin Y51-Vmztp) Tablet Active 1 TAB PO every day at noon 2022 12:00am Complies with drug therapyStart: 47-08-3127chwv 1 tablet by mouth once dailyStart: 75-90-3157trxh 1 tablet by mouth once daily Cyanocobalamin-Liver Extract (Vitamin H91-Tcwxm) Tablet Active 1 TAB PO every day at no2022 12:00amStart: 86-27-4142hike 1 tablet by mouth once dailyCyanocobalamin-Liver Extract (Vitamin O54-Tgjvd) Tablet Active 1 TAB PO every day at no2022 11:00pmdextromethorphan hydrobromide 1.5 mg/ml / pyrilamine maleate 1.5 mg/ml oral solution (1 source)Uncompetitive F-uecveu-D-aspartate Receptor Antagonist, Sigma-1 AgonistStart: 45-19-8097fiba 10 mL by mouth every eight hoursCapron DM 7.5-7.5 MG/5ML 10 mL Orally every 8 hours for 5 days Jul, Activedocusate sodium 100 mg oral capsule (10 sources)take 1 capsule by mouth in the morningdocusate sodium (Colace) 100 MG capsule Take 100 mg by mouth in the morning and 100 mg before bedtime. Active esomeprazole 20 mg delayed release oral tablet (20 sources)Proton Pump InhibitorStart: 92-86-0403ghdi 1 tablet by mouth once dailyEsomeprazole Magnesium 20 mg Tablet,Delayed Release (Dr/Ec) Active 20 MG PO every day at March 26, 2023 12:00am Complies with drug therapyStart: 86-94-2082Czrauh 20 mg, Oral, As Directed, Refills(s) 0 Start Date: 08/17/19 Status: OrderedStart: 65-70-7452Qkeise Oral, Daily, Refills(s) 0 Start Date: 08/17/19 Status: Orderedtake 1 capsule by mouth once dailyesomeprazole (NexIUM) [address] capsule Take 20 mg by mouth 1 (one) time each day. 1 capsule orally once a day ActiveFerrous Bisglycinate Chelate 28 MG capsule (4 sources)Start: 11-04-2024 End: 48-51-9177cuhb 1 capsule by mouth at mealtimeFerrous Bisglycinate Chelate 28 MG capsule Indications: Iron deficiency Take 1 capsule by mouth in the evening. Take with meals 11/04/2024 12/04/2024 Activeferrous sulfate 134 mg oral tablet (5 sources)Start: 18-83-1388Ojatjzf Sulfate 27 mg iron Tablet Active 30 MG PO every Friday, , Friday, and Sunday March 26, 2023 12:00am Complies with drug therapyStart: 47-84-0074uhht 30 mg by mouth onceFerrous Sulfate Active 30 MG PO every Friday, , Friday, and Sunday March 26, 2023 12:00am4 ml golimumab 12.5 mg/ml injection (20 sources)Tumor Necrosis Factor BlockerStart: 52-69-7516Cillfjgia (Simponi Aria) 12.5 mg/mL Solution Active 12.5 MG IV EVERY 8 WEEKS March 26, 2023 12:00am may 13 Complies with drug therapyStart: 34-67-9540Fbgcjyy Aria mg/kg, IV, q4wk, Refills(s) 0 Start Date: 08/20/19 Status: Orderedgolimumab (Simponi) 100 MG/ML solution auto-injector Inject 100 mg under the skin every 8 (eight) weeks ActiveInsulin Glargine (2 sources)Insulin AnalogLantus Activemeclizine hydrochloride 12.5 mg oral tablet (20 sources)AntiemeticStart: 12-22-2024 End: 53-83-0141dfxv 0.5-1 tablets by mouth three times daily as needed for dizzinessmeclizine (Antivert) 12.5 MG tablet Indications: Vertigo Take 0.5-1 tablets (6.25-12.5 mg) by mouth3 (three) times a day as needed for dizziness for up to 20 days 60 tablet 12/22/2024 02/17/2025 Discontinued (Med list cleanup) metFORMIN hydrochloride 1000 mg oral tablet (20 sources)BiguanideStart: 04-18-2025 End: 26-77-2331pmxr 1 tablet by mouth in the morningmetFORMIN (Glucophage) 1000 MG tablet Indications: Type 2 diabetes mellitus with stage 3a chronic kidney disease, without long-term current use of insulin (HCC) Take 1 tablet (1,000 mg) by mouth in the morning and 1 tablet (1,000 mg) in the evening. Take with meals. 180 tablet 1 05/23/2025 11/19/2025 ActiveStart: 08-17-2019 End: 73-72-0384kghy 1 tablet by mouth in the morningmetFORMIN (Glucophage) 1000 MG tablet Indications: Type 2 diabetes mellitus with stage 3a chronic kidney disease, without long-term current use of insulin (HCC) Take 1 tablet (1,000 mg) by mouth in the morning and 1 tablet (1,000 mg) in the evening. Take with meals. 180 tablet 1 10/18/2024 04/16/2025 ActiveStart: 44-26-3961hcuilujau Oral, Refills(s) 0 Start Date: 08/17/19 Status: OrderedmetFORMIN HCl Activemethotrexate 2.5 mg/ml oral solution (20 sources)Folate Analog Metabolic InhibitorStart: 59-82-8110igjg 1.5 mg by mouth every weekMethotrexate 2.5 mg/mL Solution Active 1.5 MG PO every week March 26, 2023 12:00am Friday's Complies with drug therapyStart: 39-88-7069lllk 1.5 mg by mouth every weekMethotrexate Active 1.5 MG PO every week March 26, 2023 12:00am Friday'sStart: 34-50-0812izbn 5 mg by mouth every weekmethotrexate 5 mg, Oral, qWeek, Refills(s) 0 Start Date: 08/17/19 Status: OrderedStart: 33-25-7667nmvacfmndcoo Refills(s) 0 Start Date: 08/17/19 Status: Orderedinject 0.5 mL by subcutaneous injection every weekMethotrexate 12.5 MG/0.5ML solution prefilled syringe Inject 0.5 mL under the skin 1 (one) time perweek ActiveMethotrexate Sodium ActiveMisc Medication (5 sources)Start: 31-43-3552Yxpf Medication See Instructions, Oral Start Date: 09/19/20 Status: OrderedStart: 01-23-8114Qgmo Medication ironchlate Start Date: 09/19/20 Status: OrderedMulti Vitamins oral tablet (5 sources)Start: 11-89-1868mdaf 1 tablet by mouth once dailyMulti Vitamins oral tablet 1 tab(s), Oral, Daily, Refill(s) 0 Start Date: 09/19/20 Status: Ordered Start: 53-92-1165Bpuvh Vitamins oral tablet Oral, Daily, Refill(s) 0 Start Date: 09/19/20 Status: Orderedondansetron 4 mg disintegrating oral tablet (20 sources)Serotonin-3 Receptor AntagonistStart: 02-08-2025 End: 25-31-1264ygdm 1 tablet by mouth every eight hours [...] Start Date: 08/13/23 Status: OrderedStart: 08-12-2023 End: 70-88-0974ypvb 1 tablet by mouth every eight hours as needed for nausea ondansetron ODT (Zofran-ODT) 4 MG disintegrating tablet Take 4 mg by mouth every 8 (eight) hours ifneeded for nausea 08/12/2023 04/15/2024 Discontinued (Therapy completed)oxybutynin chloride 5 mg oral tablet (10 sources)Cholinergic Muscarinic Antagonistoxybutynin (Ditropan) 5 MG tablet Take 5 mg by mouth as needed in the morning and 5 mg as needed atnoon and 5 mg as needed in the evening (bladder spasms). ActiveoxyCODONE hydrochloride 5 mg oral capsule (5 sources)Opioid AgonistStart: 02-08-2025 End: 27-52-3441qety 1 capsule by mouth every eight hoursoxyCODONE (Oxy-IR) 5 MG immediate release capsule Indications: Kidney stone on left side Take 1 capsule (5 mg) by mouth every 8 (eight) hours for 7 days 21 capsule 02/08/2025 02/15/2025 ActivepredniSONE 2.5 mg oral tablet (20 sources)Start: 77-98-5823ntnt 1 tablet by mouth once daily at bedtime Prednisone 2.5 mg Tablet Active 2.5 MG PO Daily at bedtime March 26, 2023 12:00am Complies with drug therapyStart: 40-36-1172fqoa 5 mg by mouth once daily predniSONE 5 mg, Oral, Daily, Refills(s) 0 Start Date: 08/17/19 Status: Ordered Start: 73-43-8705gznquxGBHZ Oral, Daily, Refills(s) 0 Start Date: 08/17/19 Status: Orderedtake 2.5 mg by mouth once dailypredniSONE (Deltasone) 5 MG tablet Take 2.5 mg by mouth Daily ActivepredniSONE Not-Taking/PRNSpacer/Aero-Holding Chambers (BreatheRite Leonor Spacer Adult) misc (20 sources)Start: 44-63-0785Wgsjhx/Aero-Holding Chambers (BreatheRite Leonor Spacer Adult) mis Indications: Chronic obstructive pulmonary disease with acute exacerbation (HCC) 2 puffs 4 (four) times a day as needed (sob and cough) 1 each 07/16/2023 ActiveStart: 68-84-1264Svvunx/Aero-Holding Chambers (BreatheRite Leonor Spacer Adult) misc Indications: Chronic obstructive pulmonary disease with acute exacerbation (CMS/HCC) 2 puffs 4 (four) times a day as needed (sob and cough) 1 each 07/16/2023 ActiveStart: 83-10-3414Kbihts/Aero-Holding Chambers (BreatheRite Leonor Spacer Adult) misc Indications: Chronic obstructive pulmonary disease with acute exacerbation (CMS/HCC) 2 puffs 4 (four) times a day as needed (sob and c ough) 1 each 0 07/16/2023 Activespironolactone 25 mg oral tablet (9 sources)Aldosterone AntagonistStart: 01-06-2025 End: 46-28-1150gcyx 1 tablet by mouth once dailyspironolactone (Aldactone) 25 MG tablet Indications: Vertigo Take 1 tablet (25 mg) by mouth Daily for 10 days 10 tablet 01/06/2025 02/17/2025 Discontinued (Med list cleanup)tamsulosin hydrochloride 0.4 mg oral capsule (20 sources)alpha-Adrenergic BlockerStart: 08-13-2023 End: 99-52-1216eycf 1 mg by mouth once dailytamsulosin 0.4 mg Cap mg cap(s), Oral, Daily, X 7 day(s), Refills(s) 0 Start Date: 08/13/23 Stop Date: 08/20/23 Status: OrderedStart: 08-12-2023 End: 46-49-6831fpdh 1 capsule by mouth every twenty-four hours in the morning tamsulosin (Flomax) 0.4 MG 24 hr capsule Take 0.4 mg by mouth in the morning. 08/12/2023 11/04/2024Discontinued (Med list cleanup)vitamin B12 (20 sources)Vitamin Z51Ylezc: 20-26-6509yvwm 3000 mg by mouth once dailyVitamin B12 3,000 mg, Oral, Daily, Refills(s) 0 Start Date: 08/17/19 Status: OrderedStart: 81-16-8710Dhecxgc B12 Refills(s) 0 Start Date: 08/17/19 Status: Orderedtake 1 tablet under the tongue once dailyCyanocobalamin (Vitamin B12) [address] 3,000 mcg under the tongue 1 (one) time each day. Active Vitamin D3 (5 sources)Start: 55-73-1875Ucbexjp D3 1,000 unit(s), Daily, Refills(s) 0 Start Date: 08/17/19 Status: OrderedStart: 71-29-1630Btyubaq D3 Daily, Refills(s) 0 Start Date: 08/17/19 Status: Orderedwarfarin sodium 4 mg oral tablet (20 sources)Vitamin K AntagonistStart: 05-09-2025 End: 74-51-9941evgs 1 tablet by mouth at bedtimewarfarin (Coumadin) 4 MG tablet Indications: Paroxysmal atrial fibrillation (HCC) Take 1 tablet (4 mg) by mouth at bedtime 90 tablet 3 05/09/2025 08/07/2025 ActiveStart: 67-88-2021vlgm 1 tablet by mouth at bedtimewarfarin (Coumadin) 4 MG tablet Indications: Paroxysmal atrial fibrillation (HCC) Take 1 tablet (4 mg) by mouth at bedtime 11/24/2024 ActiveStart: 08-18-2023 End: 30-54-1421bpcjhsbb (Coumadin) 2.5 MG tablet Indications: Paroxysmal atrial fibrillation (CMS/HCC) Take 1 tablet in the evening for a total of 3.5mg 90 tablet 1 08/18/2023 08/17/2024 ActiveStart: 08-18-2023 End: 08-44-6832jepp 1 tablet by mouth once daily in the eveningwarfarin (Coumadin) 1 MG tablet Indications: Paroxysmal atrial fibrillation (CMS/HCC) TAKE ONE TABLET BY MOUTH EVERY EVENING FOR A TOTAL OF 5MG 90 tablet 1 04/21/2024 07/01/2024 Discontinued (Dose adjustment)Start: 02-03-2023 End: 17-52-3464ywij 3 mg by mouth once dailywarfarin 3 mg, Oral, Daily Start Date: 02/03/23 Status: OrderedStart: 71-03-3112cxldmkba Oral, Daily Start Date: 02/03/23 Status: OrderedStart: 10-02-2022 End: 51-25-6758snab 1 tablet by mouth once daily at bedtimeWarfarin 4 mg Tablet Active 4 MG PO Daily at bedtime March 26, 2023 12:00am Complies with drug therapyZinc Sulfate-Vitamin C (Vitamin C Plus Zinc) 200-100 mg Tablet (1 source)Start: 63-26-0254gkch 1 tablet by mouth once dailyZinc Sulfate-Vitamin C (Vitamin C Plus Zinc) 200-100 mg Tablet Active 1 TAB PO every day at noon Sep [facility] 2022 11:00pm Completed/Discontinued Medications MedicationDrug Class(es)DatesSig (Normalized)Sig (Original)azithromycin 250 mg oral tablet (2 sources)Macrolide AntimicrobialStart: 69-19-0711Szjrszvoecsb 250 MG 2 tablets on the first day, then 1 tablet daily for 4 days Orally Once a day for 5 day(s) May, Not-Taking/PRNStart: 46-86-8543wmbgSTFWbden 250 mg oral tablet (13 sources)Quinolone AntimicrobialStart: 02-08-2025 End: 82-00-6045khar 1 tablet by mouth once dailylevoFLOXacin (Levaquin) 250 MG tablet Indications: Kidney stone on left side TAKE 1 TABLET BY MOUTHDAILY FOR 10 DAYS 10 tablet 02/08/2025 05/23/2025 Discontinued (Therapy completed) methylPREDNISolone (3 sources)CorticosteroidStart: 07-25-2023 End: 31-98-1571jyminoKLTRAULtwwaf (Medrol Dospak) 4 MG tabletsStart: 07-25-2023 methylPREDNISolone 4 MG as directed Orally for 6 12 Jul,4 ActivetraZODone hydrochloride 50 mg oral tablet (20 sources)Serotonin Reuptake InhibitorStart: 04-15-2024 End: 78-85-9312lkcRJHrgz (Desyrel) 50 MG tablet Indications: Insomnia Titrate nightly from 1/2 tablet up to 2 tablets by 1/2 tablet increments as tolerated 60 tablet 04/15/2024 05/23/2025 Discontinued (Med list cleanup) Problems Active Problems Problem ClassificationProblemDateDocumented DateEpisodic/ChronicAbdominal pain (9 sources)Abdominal pain; Translations: [Unspecified abdominal pain]Onset: [id number]pty/social admission (2 sources)Advance directive discussed with patient; Translations: [Other specified counseling]09-12-5434UplazzvyZwlrcpy disorders (5 sources)Rjjazzo71-67-5305RlxfrbwOiettelq of urinary tract (18 sources)Kidney stone; Translations: [Calculus of kidney]Onset: 03-20-2023 EpisodicCancer of uterus (5 sources)History of malignant neoplasm of uterine fqfw31-81-9363Goryptcv Cardiac dysrhythmias (20 sources)Paroxysmal atrial fibrillation; Translations: [Atrial fibrillation] Onset: 18-31-3057PopdytqLdpoaakf (20 sources)Bilateral age-related nuclear cataracts; Translations: [Age-related nuclear cataract, bilateral]Onset: 05-19-2023 Resolved: [id number] kidney disease (20 sources)Chronic kidney disease stage 3A ; Translations: [Stage 3a chronic kidney disease (HCC) (CMS/HCC)]Onset: [id number] associated with dizziness or vertigo (10 sources)Vertigo; Translations: [Dizziness and giddiness]25-77-6046Ptiftmov Congestive heart failure; nonhypertensive (20 sources)Chronic diastolic (congestive) heart failure; Translations: [Chronic diastolic heart failure]Onset: 588938-44-6143JcuboqzNpyacwqr mellitus with complications (20 sources)Type 2 diabetes mellitus with diabetic chronic kidney disease; Translations: [Type 2 diabetes mellitus]Onset: 30-40-8556JuynqivMymgstcmiadtwc and diverticulitis (20 sources)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; Translations: [Diverticulosis of large intestine without perforation or abscess without bleeding]Onset: 278706-04-9284TgybgcxEunhgnfeip disorders (20 sources)Gastroesophageal reflux disease without esophagitis; Translations: [Gastro-esophageal reflux disease without esophagitis]Onset: 12-12-2022 40-19-8989UmrqtqeAwvjjsrwrfzkl symptoms and ill-defined conditions (20 sources)Increased frequency of urination; Translations: [Nocturia]Onset: 262409-86-9899PxsbputgCotzpkpj (20 sources)Preglaucoma, unspecified, bilateral; Translations: [Preglaucoma, unspecified]Onset: 440356-08-3665OxlqieePknik valve disorders (20 sources)Nonrheumatic aortic (valve) stenosis; Translations: [Aortic valve disorders]Onset: 880653-91-4929TerpdshQdjhkyag disorders (20 sources)Immunosuppression; Translations: [Immunodeficiency, unspecified] Onset: 982980-70-9072HirwhuhTrqyaze and fatigue (2 sources)Fatigue; Translations: [Chronic fatigue, unspecified]04-15-2024 ChronicMenopausal disorders (20 sources)Disorder associated with menstruation AND/OR menopause; Translations: [Menopausal and female climacteric states]Onset: 12-12-2022 01-91-1418RwuzbomNhrg disorders (5 sources)Depressive entvpvir96-12-6436GymitmfJajagrassck deficiencies (20 sources)Vitamin D deficiency; Translations: [Vitamin D deficiency, unspecified]Onset: 444789-03-0026HsxdyyqYptqutbgdzcd (20 sources)Osteoporosis; Translations: [Age-related osteoporosis without current pathological fracture]Onset: 653673-53-4877DothnrnJhmty aftercare (1 source)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; Translations: [ALF CURRNT USE ANTICOAGULANTS]Onset: 75-90-1487UidomjdoOjnba aftercare (5 sources)Encounter for therapeutic drug level monitoring; Translations: [ENC THERAPEUTC DRUG LEVL MONITORING]Onset: 50-02-4441ZarrowzvGrwjn aftercare (1 source)Other custodial (current) drug therapy; Translations: [OTH ALF CURRENT DRUG THERAPY]Onset: 70-39-0478ZvuohcxqUmwzu aftercare (20 sources)Long-term current use of anticoagulant; Translations: [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]Onset: 01-41-2561MschdwdoHhzxw aftercare (2 sources)Post-discharge follow-up; Translations: [Encounter for follow-up examination after completed treatment for conditions other than malignant neoplasm]04-45-9606HhpxllykWcqan and ill-defined heart disease (4 sources)Cardiomegaly; Translations: [CARDIOMEGALY]Onset: 55-94-0566Ggxdkvy Other and ill-defined heart disease (20 sources)Ventricular hypertrophy ; Translations: [Cardiomegaly]Onset: 138930-68-6476LcrgbzaWfnzz diseases of kidney and ureters (2 sources)Urinary tract obstruction; Translations: [Hydronephrosis with renal and ureteral calculous obstruction]Onset: 81-68-5250VfpcmmrbOcbtu diseases of kidney and ureters (1 source)Hydronephrosis with renal and ureteral calculous obstruction; Translations: [Hydronephrosis with renal and ureteral calculous obstruction] Onset: 35-29-6730PycsykmzQpevv endocrine disorders (1 source)Disorder of adrenal gland; Translations: [Disorder of adrenal gland, unspecified]Onset: 15-74-7495JrsskgmEigrv gastrointestinal disorders (1 source)Adrenal vpkn43-53-4878MigbfkxbCldme inflammatory condition of skin (5 sources)Other psoriatic arthropathy; Translations: [OTHER PSORIATIC ARTHROPATHY]Onset: 85-87-4062YmcyrvpGafnf inflammatory condition of skin (20 sources)Psoriatic arthritis; Translations: [Arthropathic psoriasis, unspecified]Onset: 727115-11-7911FhmejmzDypkp nutritional; endocrine; and metabolic disorders (5 sources)Body mass index 25-29 - zxhontkcjh87-58-6076XjtfwxrnZaclp nutritional; endocrine; and metabolic disorders (2 sources)Unexplained weight loss ; Translations: [Abnormal weight loss] 01-16-5523ZhvbvmciFdeqz screening for suspected conditions (not mental disorders or infectious disease) (6 sources)Patient encounter status; Translations: [Encounter for screening for other disorder]71-80-4009FwredujlYauikgfj codes; unclassified (2 sources)Sleep dysfunction with arousal disturbance; Translations: [Other sleep disorders]78-03-6612PnkwmppOmwscfrs codes; unclassified (5 sources)H/O: anticoagulant akdpanx03-91-8008GllpxxedFuqbbiqmfmj; intervertebral disc disorders; other back problems (20 sources)Degeneration of lumbar intervertebral disc; Translations: [Other intervertebral disc degeneration, lumbar region]Onset: 857841-45-0030 ChronicUnclassified (5 sources)Drug therapy zllrevk76-92-5517Fmfdiuiiklmk (3 sources)Obstructive jpwfazewksszhz90-94-7594Ypfpzindgoqu (1 source) I did send a prescription [...] 1 diabetes mellitus without complication]Onset: 05-19-2023 Resolved: 112903-48-8416ZjmgyueSjopg valve disorders (20 sources)Cardiac murmur, unspecified; Translations: [Heart murmur]Onset: 539959-19-5592TrwvhdvfIejqnmrqbnofj and screening for infectious disease (1 source)Contact with and (suspected) exposure to other viral communicable diseasesOnset: 05-21-2021 Resolved: 65-22-0034LyxajlbaRxnrdoycvxkw; infection of eye (except that caused by tuberculosis or sexually transmitteddisease) (20 sources)Blepharitis of upper and lower eyelids of bilateral eyes; Translations: [Unspecified blepharitis right eye, upper and lower eyelids]Onset: 05-19-2023 Resolved: 674759-76-0409SzuhwhcnAtzu disorders (20 sources)Mood disordersOnset: 05-22-2023 Resolved: 212078-69-4925Sjhfnuavbiv deficiencies (20 sources)Iron deficiency; Translations: [Iron deficiency]Onset: 12-12-2022 00-07-0136JcwwysisXjdjj aftercare (1 source)continuous churn buttermaker (current) use of oral hypoglycemic drugs; Translations: [ALF USE ORAL HYPOGLYCEMIC DX]Onset: 46-95-3247QkycrfivVzkau aftercare (1 source)custodial (current) use of insulin; Translations: [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 OF INSULIN]Onset: 34-75-9245GbrqgqjlOzruh bone disease and musculoskeletal deformities (20 sources)Osteopenia; Translations: [Other specified disorders of bone density and structure, unspecified site]Onset: 339395-50-7349TuqgztriZccaf connective tissue disease (4 sources)Pain in left foot; Translations: [PAIN IN LEFT FOOT]Onset: 02-20-2022 EpisodicOther eye disorders (20 sources)Dry eyes; Translations: [Dry eye syndrome of bilateral lacrimal glands]Onset: 925250-33-6982FkhfolzmYyuvt nutritional; endocrine; and metabolic disorders (20 sources)Overweight; Translations: [Overweight]Onset: 12-12-2022 Resolved: 016343-54-7494YegumwvyJdjhttbgr (except that caused by tuberculosis or sexually transmitted disease) (1 source)Pneumonia, unspecified organismOnset: 05-21-2021 Resolved: 36-40-4141XqdejjkuTmnprabj codes; unclassified (20 sources)Body mass index 20-24 - normal; Translations: [Body mass index (BMI) 24.0-24.9, adult]Onset: 345705-60-7405XkxmzrfdHhfeixyi codes; unclassified (20 sources)Sleep disorder; Translations: [Sleep disorder, unspecified]Onset: 831468-70-1735OeijombrNjzdxqnhv and history of mental health and substance abuse codes (20 sources)Ex-smoker; Translations: [Personal history of nicotine dependence] Onset: 03-27-2017 Resolved: 017461-74-7893TfscwywrHbjlsnzcshnb (1 source)Unclassified (1 source)Contact with and (suspected) exposure to covid-19 Z20.822Viral infection (1 source)COVID-19Onset: 05-21-2021 Resolved: 05-21-2021 Results Test NameValueInterpretationReference RangeFacilitySRMERCY [facility] [place] PROT[place] TIME INR W/O COUMon 59-31-2662Ywncrkcjjhzbyy and review of laboratory resultsAbnormalNOMS HealthcarePT Coag (PPP) [Time]20.9 [facility] INR2.12NOIN HealthcareComment on above:DESIRED INR: 2.0-3.0 CONDITIONS NOT LISTED BELOW 2.5-3.5 FOR PROSTHETIC HEART VALVE REPLACEMENT 2.5-3.5 RECURRENT THROMBOSIS CLINNEWYORK[facility] HealthcareMLR HEMOGLOBIN A1Con 45-30-5511Ypyzfmh [Mass/Vol]137 mg/dLBarnes-Jewish West County HospitalHbA1c (Bld) [Mass fraction]6.4 %High4.5 - 6.2 %[facility] HealthcareComment on above:ADA RECOMMENDED LIMIT 4.0 - 6.0 ADA THERAPEUTIC TARGET < 7.0 ACTION SUGGESTED > 7.0 Interpretation and review of laboratory resultsAbnormalNOMetropolitan Saint Louis Psychiatric CenterINISYNGuernsey Memorial Hospital PROTHROMBIN TIME INR W/O COUMon 74-92-7411Oiimrsloqdtcdz and review of laboratory resultsAbnormsdNOMS HealthcarePT Coag (PPP) [Time]19.6 [facility] INR1.98NOIN HealthcareComment on above:DESIRED INR: 2.0-3.0 CONDITIONS NOT LISTED BELOW 2.5-3.5 FOR PROSTHETIC HEART VALVE REPLACEMENT 2.5-3.5 [facility] PROT[facility] TIME INR W/O COUMon 03-08-2025 Interpretation and review of laboratory resultsAbnormsdNOMS [facility] HospitalPT Coag (PPP) [Time]27.8 [facility] INR2.92NOIN HealthcareComment on above: DESIRED INR: 2.0-3.0 CONDITIONS NOT LISTED BELOW 2.5-3.5 FOR PROSTHETIC HEART VALVE REPLACEMENT 2.5-3.5 RECURRENT THROMBOSIS CLINISYNCNOIN HealthcareCapillary blood glucose measurement by glucometer (mass/volume)Ordered By: Eugenia Jackson on 14-35-4228Flkvuvt [Mass/Vol]108 mg/dL The Jewish HospitalComment on above:Random Glucose Reference Range is [...] Point of Care testing ,Glucose Poct Glucometerson 51-21-0470Gjxarft3Joh3: Cleaned [facility] Physician GroupComment on above:Result Comment: PERFORMED BY: [place] [address] PATHOLOGIST BAG SEWER IZABEL CHI M.D.Performed By: #### GLULS #### Point of Care testing ,INR in Platelet poor plasma by Coagulation assayOrdered By: BLANCA SIM on 11-71-5364RTN Coag (PPP) [Relative time]1.0 {INR}The Jewish HospitalComment on above:INR Therapeutic Range A) Pre- [...] - 4.5Performed By: #### PTT, PT #### [place] [address] [facility] 02-14-2025L Specimen: [id number] Received: 02/14/25 Status: JET Hurd Num: [id number] Spec Type: Surgical Subm Dr: Eugenia Jackson MD Tissues: A Gross Only (LEFT URETER STONE) Procedures: Level 1 Gross Age/ Patient Sex Location Account Attending Physician Wilda Sen 79/F [place] [id number] Eugenia Jackson MD SPEC NUM: [id number] RECD: 02/14/25 STATUS: JET HURD NUM: [id number] LEONOR: 02/14/25-[address]: Eugenia Jackson MD ENTERED: 02/14/[address] [facility] [address]: SPEC TYPE: Surgical DEPT: S ENTERED BY: [id number] RECV BY: [id number] ORDERED: Level 1 Gross ORDERED: Level 1 Gross Pathological Diagnosis Left ureteral stone, removal: - Fragments of calculus. Clinical Information Left kidney stones Gross Description Received fresh labeled with the patients name, date of , and left ureter stone are six escobedo-chaudhry, granular, 0.1 to 0.3 cm in greatest dimension calculi. [facility]. GROSS ONLY- Microscopic Description Gross examination only. CPT Codes 93937 Specimen: [id number] Received: 02/14/25 Status: JET Hurd Num: [id number] Spec Type: Surgical Subm Dr: Eugenia Jackson MD Tissues: A Gross Only (LEFT URETER STONE) Procedures: Level 1 Gross Patient: Wilda Sen [id number] (Continued) Signed (signature on file) Mikel Quiros MD 02/15/25 1034Normal [facility] Physician GroupNo Panel InformationOrdered By: Eugenia Jackson on 19-06-6108Ollfcjb Glucose CommentGlu2: cleaned meterOhiohealthPartial Thromboplastin Timeon 43-92-7050oAIA Coag (Bld) [Time]26.6 sNormal 25.1-36.5[facility] Physician [facility] HospitalComment on above:Result Comment: A hematocrit value greater than 55% may lead to inaccurate results in coagulation testing. Patients having hematocrit values >55% require a special collection tube for coagulation studies. Please contact the laboratory at [phone] for redraw instructions. PERFORMED BY: [place] [address] PATHOLOGIST BAG SEWER IZABEL CHI M.D.Performed By: #### PTT, PT #### [facility] [address] [place] [address] USAProthrombin time (PT)Ordered By: BLANCA SIM on 62-05-7531TA Coag (PPP) [Time]11.6 sNormal9.0-12.9OhiohealthComment on above:A hematocrit value greater than 55% may lead to inaccurate results in coagulation testing. Patientshaving hematocrit values >55% require a special collection tube for coagulation studies. Please contact the laboratory at [phone] for redraw instructions.Result Comment: A hematocrit value greater than 55% may lead to inaccurate results in coagulation testing. Patients having hematocrit values >55% require a special collection tube for coagulation studies. Please contact the laboratory at [phone] for redraw instructions.Performed By: #### PTT, PT #### [address] [address] USAX-ray reportOrdered By: Kevan Zhou on 89-10-0718[facility] Main [address] [address] XRay Report Signed Patient: Wilda Sen MR#: [id number] : 1945 Acct:[id number] Age/Sex: 79 / F ADM Date: 5 Loc: [place] Room: Type: [facility] Attending Dr: Eugenia Jackson MD Copies to: [...] Jr., D.O. 02/14/2025 12:37 PM Dictation Location: [place] [address] Transcribed By: [facility] 02/14/25 1237 Dictated By: Kevan Zhou Jr, DO 02/14/25 1235 Signed By: 02/14/25 1237 OhiohealthXR KUBon 78-41-1346HQ [facility] Main [address] [address] XRay Report Signed Patient: Wilda Sen MR#: [id number] 8 : 1945 Acct:[id number] Age/Sex: 79 / F ADM Date: 02/14/25 Loc: [place] Room: Type: [facility] Attending Dr: Eugenia Jackson MD Copies [...] By: Tavon Young MD 02/14/252099 Signed By: 02/14/252101[facility] GroupXR [facility] [place] [address] XRay Report Signed Patient: Wilda Sen MR#: [id number] 8 : 1945 Acct:[id number] Age/Sex: 79 / F ADM Date: 02/14/25 Loc: [place] Room: Type: [facility] Attending Dr: Eugenia Jackson MD Copies to: [...] MM. Impression dictated by: Kevan Zhou Jr., Narda 02/14/2025 12:37 PM Dictation Location: RADIO-PC-23 Transcribed By: LUKASZ 02/14/25 1237 Dictated By: Kevan Zhou Jr, DO 02/14/25 1235 Signed By: 02/14/25 1237[facility] Physician [facility] Holmes Memorial HospitalaPTT in Platelet poor plasma by Coagulation assayOrdered By: BLANCA SIM on 40-69-4226pAGM Coag (PPP) [Time] 26.6 s25.1-36.5FAultman Alliance Community HospitalComment on above:A hematocrit value greater than 55% may lead to inaccurate results in coagulation testing. Patientshaving hematocrit values >55% require a special collection tube for coagulation studies. Please contact the laboratory at [phone] for redraw instructions.ECG 12 lead ECGon 11-35-5522XEB 12 lead ECGST. JOHN [place] [address] Electrocardiograph Report Signed Patient: Wilda Sen MR#: [id number] 8 : 1945 Acct:[id number] Age/Sex: 79 / F ADM Date: 02/11/25 Loc: Room: Type: [facility] Attending Dr: Kristie MCFARLAND Ordering Provider: [...] axis shifted right Confirmed by Dez Chavez ([id number]) on 02/12/2025 3:51:55 PM Referred By: Electronically Signed By: Dez Chavez Transcribed By: MUS Signed By Dze Chavez MD 02/12/[address] [place] [address] Physician GroupUrine Cultureon 02-04-2025 Bacteria identified Cx Nom (U)ORGANISM: Enterobacter cloacae complex (O:ENTCLOCPLX) [place] Count 25,000 Aerobic KIKA Charge (NMIC56) SUSCEPTIBILITY [...] RESISTANT TO ALL B-LACTAM DRUGS. PERFORMED BY: [place] [address] PATHOLOGIST BAG SEWER IZABEL CHI M.D.NormalAdventhealth Tampa Physician GroupComment on above: Performed By: #### CUU #### [address] StreetUrine cultureOrdered By: Lobito Tapia on 02-04-2025 Bacteria identified Cx Nom (U)Enterobacter cloacae complexAbGalion HospitalXR ABDOMEN 1Von 73-70-9195[place] [address] XRay Report Signed Patient: WILDA SEN MR#: [id number] : 1945 Acct:[id number] Age/Sex: 79 / F ADM Date: 02/02/25 Loc: RAD Attending Dr: Eugenia Jackson M.D. Ordering Physician: Eugenia Jackson M.D. Date of Service: 02/02/25 Procedure(s): XR abdomen 1V Accession Number(s): [id number] cc: Eugenia Jackson M.D.; JAYME PEREZ [address] [address] Patient Name: WILDA SEN MRN: [id number] date: 1945 Sex: F Assigned Patient Location: [facility] Current Patient Location: [facility] Accession/Order Number: [id number] Exam Date: 02/02/2025 10:29 Report Date: 02/02/2025 [...] THE STENT. Impression dictated by: Kevan Zhou Jr. DAlbinOAlbin 02/02/2025 10:30 AM Dictation Location: [place] [address] Electronically authenticated by: [id number] Y Date: 02/02/2025 10:30 Dictated By: Kevan Zhou M.D. Signed By: 02/02/25 1033 DD/ 1030 TD/TT: In Store Representative:TBHRadiology, Radiologist, - 02/02/2025 [place] [address] XRay Report Signed Patient: WILDA SEN MR#: [id number] : 1945 Acct:[id number] Age/Sex: 79 / F ADM Date: 02/02/25 Loc: [facility] Attending Dr: Eugenia Jackson M.D. Ordering Physician: Eugenia Jackson M.D. Date of Service: 02/02/25 Procedure(s): XR abdomen 1V Accession Number(s): [id number] cc: Eugenia Jackson M.D.; JAYME PEREZ [address] [address] Patient Name: WILDA SEN MRN: [id number] date: 1945 Sex: F Assigned Patient Location: [facility] Current Patient Location: [facility] Accession/Order Number: [id number] Exam Date: 02/02/2025 10:29 Report Date: 02/02/2025 [...] Jr., D.O. 02/02/2025 10:30 AM Dictation Location: [place] [address] Electronically authenticated by: [id number] Y Date: 02/02/2025 10:30 Dictated By: Kevan Zhou M.D. Signed By: 02/02/25 1033 DD/ 1030 TD/TT: In Store Representative: YESSI HealthcareRadiology Study observation (narrative)NOM HealthcareXR ABDOMEN 1VOrdered By: Radiologist Radiology on 18-71-3579XZPR Healthcare Work Phone: all CBC WITH AUTO DIFFon 42-26-0947PYLTMVLRU ABSOLUTE AUTO0.1NOMS HealthcareBasophils/100 WBC (Bld)0.7 %0.2 - 2.0 %[facility] Eosinophils/100 WBC (Bld)1.9 %0.9 - 7.0 %NOMS HealthcareErythrocyte distribution width (RBC) [Ratio]14.5 %11.0 - 15.0 %NOMS HealthcareHematocrit (Bld) [Volume fraction]37 %36.0 - 48.0 %NOMS HealthcareHemoglobin (Bld) [Mass/Vol]12 g/dL12.0 - 16.0 g/dLNOIN HealthcareIMMATURE GRANULOCYTES ABS AUTO0.03NOMS Healthcare Immature granulocytes/100 WBC (Bld)0.4 %0.0 - 0.5 %[facility] HospitalInterpretation and review of laboratory resultsAbnormalBarnes-Jewish West County HospitalLYMPHOCYTES ABSOLUTE AUTO2.2NOMS [facility] HospitalLymphocytes/100 WBC (Bld)30.9 %20.5 - 60.0 %[facility] HealthH (RBC) [Entitic mass]31.3 pg26.7 - 34.0 pgCarondelet HealthHC (RBC) [Mass/Vol]32.4 g/dL29.9 - 35.2 g/dLCarondelet HealthV (RBC) [Entitic vol]96.4 fL 81.0 - 99.0 fLBarnes-Jewish West County HospitalMONOCYTES ABSOLUTE AUTO0.6NOSt. [facility] Monocytes/100 WBC (Bld)8.3 %1.7 - 12.0 %[facility] HospitalNEUTROPHILS ABSOLUTE AUTO 4.1NOMS [facility] HospitalNeutrophils/100 WBC (Bld)57.8 %43.0 - 75.0 %[facility] Platelet mean volume (Bld) [Entitic vol]8.9 fLLow9.5 - 13.5 fLBarnes-Jewish West County HospitalTB EO #0.1NOMS [facility] HospitalTB [id number] Rehabilitation Center RBC3.84LowNOMissouri Rehabilitation Center PTR0KEMUBarnes-Jewish West County HospitalCLINISYNCNBoone Hospital Center BRAIN W AND WO CONTRAST (IACS)on 56-04-1661WD BRAIN W AND WO CONTRAST (IACS)HISTORY: Vertigo. Unsteady gait. TECHNIQUE: [facility] brain MRI protocol without and with contrast [...] process or suspicious enhancement. ELECTRONICALLY SIGNED BY: Alessandra Preston [facility] PROTHROMBIN TIME INR W/O COUMon 09-22-8247Xelpjbbxmkrzur and review of laboratory resultsAbHenry Ford West Bloomfield HospitalPT Coag (PPP) [Time]21.7 [facility] INR2.22NOIN HealthcareComment on above:DESIRED INR: 2.0-3.0 CONDITIONS NOT LISTED BELOW 2.5-3.5 FOR PROSTHETIC HEART VALVE REPLACEMENT 2.5-3.5 RECURRENT THROMBOSIS [facility] PROTHROMBIN TIME INR W/O COUMon 12-08-2024 Interpretation and review of laboratory resultsAbHenry Ford West Bloomfield HospitalPT Coag (PPP) [Time]22.8 [facility] INR2.34NOIN HealthcareComment on above: DESIRED INR: 2.0-3.0 CONDITIONS NOT LISTED BELOW 2.5-3.5 FOR PROSTHETIC HEART VALVE REPLACEMENT 2.5-3.5 RECURRENT THROMBOSIS CLINCox [place] CBC WITH AUTO DIFFon 62-49-1119WPUFGPGGY ABSOLUTE AUTO0.1NOMS HealthcareBasophils/100 WBC (Bld)0.9 %0.2 - 2.0 %[facility] Healthcare Eosinophils/100 WBC (Bld)5.6 %0.9 - 7.0 %[facility] HospitalErythrocyte distribution width (RBC) [Ratio]14.6 %11.0 - 15.0 %[facility] HealthcareHematocrit (Bld) [Volume fraction]39.6 %36.0 - 48.0 %[facility] HealthcareHemoglobin (Bld) [Mass/Vol]12.7 g/dL 12.0 - 16.0 g/dLBarnes-Jewish West County HospitalIMMATURE GRANULOCYTES ABS AUTO0.02NOSt. Louis Children's Hospital Immature granulocytes/100 WBC (Bld)0.4 %0.0 - 0.5 %[facility] HospitalInterpretation and review of laboratory resultsAbnormalBarnes-Jewish West County HospitalLYMPHOCYTES ABSOLUTE AUTO1.8NOSt. Louis Children's HospitalLymphocytes/100 WBC (Bld)32 %20.5 - 60.0 %[facility] MCH (RBC) [Entitic mass]31 pg26.7 - 34.0 pgNOSt. Louis Children's HospitalMCHC (RBC) [Mass/Vol] 32.1 g/dL29.9 - 35.2 g/dLCarondelet HealthV (RBC) [Entitic vol]96.6 fL81.0 - 99.0 fLBarnes-Jewish West County HospitalMONOCYTES ABSOLUTE AUTO0.6NOSt. Louis Children's HospitalMonocytes/100 WBC (Bld)9.9 %1.7 - 12.0 %[facility] HospitalNEUTROPHILS ABSOLUTE AUTO2.9NOSt. Louis Children's Hospital Neutrophils/100 WBC (Bld)51.2 %43.0 - 75.0 %[facility] HospitalPlatelet mean volume (Bld) [Entitic vol]8.8 fLLow9.5 - 13.5 fLSt. Lukes [facility] EO #0.3NOMissouri Rehabilitation Center [id number] Rehabilitation Center RBC4.1LowNProgress West Hospital WBC5.7NOSt. Louis Children's HospitalCLD.W. MCMILLAN MEMORIAL HOSPITALYNAnMed Health [facility] MICROALB CREAT RATIO RANDOMon 11-02-2024 CREATININE URINE PWJAJS986.56 mg/dL20.00 - 300.00 mg/dLBarnes-[facility] Hospital Interpretation and review of laboratory resultsAbnoLifecare Hospital of Chester CountyMICROALBUM CREATININE RATIO UR129.7 mg/gHigh0.0 - 29.9 mg/gNResearch Medical CenterComment on above: NO MICROALBUMINURIA 0-29 MG/G CLINICAL MICROALBUMINURIA 30-300 MG/G MACROALBUMINURIA >300 MG/G MICROALBUMIN URINE SNMZKF94.4 mg/dLNINF - 30.0 mg/dLBarnes-Jewish West County HospitalCLINISYNWayne HospitalOH PROTHROMBIN TIME INR W/O COUMon 93-06-5861Ymwzkssfhgceen and review of laboratory resultsAbnoLifecare Hospital of Chester CountyPT Coag (PPP) [Time]28.7 s HighSt. [facility] INR3.02[facility] HealthcareComment on above:DESIRED INR: 2.0-3.0 CONDITIONS NOT LISTED BELOW 2.5-3.5 FOR PROSTHETIC HEART VALVE REPLACEMENT 2.5-3.5 RECURRENT THROMBOSIS CLINISYNCBarnes-Jewish West County HospitalALL CBC WITH AUTO DIFFon 47-86-8686GTJUJRCBI ABSOLUTE AUTO0.1NOMS HealthcareBasophils/100 WBC (Bld)1 %0.2 - 2.0 %[facility] Eosinophils/100 WBC (Bld)3.7 %0.9 - 7.0 %[facility] HospitalErythrocyte distribution width (RBC) [Ratio]14.4 %11.0 - 15.0 %[facility] HospitalHematocrit (Bld) [Volume fraction]38.7 %36.0 - 48.0 %[facility] HospitalHemoglobin (Bld) [Mass/Vol]12.4 g/dL 12.0 - 16.0 g/dLBarnes-Jewish West County HospitalIMMATURE GRANULOCYTES ABS AUTO0.02NOSt. Louis Children's Hospital Immature granulocytes/100 WBC (Bld)0.3 %0.0 - 0.5 %[facility] HospitalInterpretation and review of laboratory resultsAbnormalBarnes-Jewish [facility] County HospitalLYMPHOCYTES ABSOLUTE AUTO1.8NOMS [facility] HospitalLymphocytes/100 WBC (Bld)28.4 %20.5 - 60.0 %[facility] HealthH (RBC) [Entitic mass]30.9 pg26.7 - 34.0 pgCarondelet HealthHC (RBC) [Mass/Vol]32 g/dL29.9 - 35.2 g/dLBarnes-Jewish West County HospitalMCV (RBC) [Entitic vol]96.5 fL 81.0 - 99.0 fLBarnes-Jewish West County HospitalMONOCYTES ABSOLUTE AUTO0.4NOSt. Louis Children's Hospital Monocytes/100 WBC (Bld)5.9 %1.7 - 12.0 %[facility] HospitalNEUTROPHILS ABSOLUTE AUTO 3.8NOSt. Louis Children's HospitalNeutrophils/100 WBC (Bld)60.7 %43.0 - 75.0 %[facility] Platelet mean volume (Bld) [Entitic vol]8.9 fLLow9.5 - 13.5 fLBarnes-Jewish West County HospitalTB EO #0.2NOMS HealthcareTB [id number] [facility] RBC4.01LowNOMissouri Rehabilitation Center WBC6.3NOSt. Louis Children's HospitalCLINISYNCNHermann Area District Hospital PROTHROMBIN TIME INR W/O COUMon 77-85-2136Bgniqszppxciaq and review of laboratory resultsAbnoLifecare Hospital of Chester CountyPT Coag (PPP) [Time]26.7 [facility] INR2.79NOIN HealthcareComment on above:DESIRED INR: 2.0-3.0 CONDITIONS NOT LISTED BELOW 2.5-3.5 FOR PROSTHETIC HEART VALVE REPLACEMENT 2.5-3.5 RECURRENT THROMBOSIS [facility] PROTHROMBIN TIME INR W/O COUMon 09-13-2024 Interpretation and review of laboratory resultsAbnoLifecare Hospital of Chester CountyPT Coag (PPP) [Time]17.8 [facility] INR1.78NOIN HealthcareComment on above: DESIRED INR: 2.0-3.0 CONDITIONS NOT LISTED BELOW 2.5-3.5 FOR PROSTHETIC HEART VALVE REPLACEMENT 2.5-3.5 RECURRENT THROMBOSIS [facility] PROTHROMBIN TIME INR W/O COUMon 08-17-2024 Interpretation and review of laboratory resultsAbnoLifecare Hospital of Chester CountyPT Coag (PPP) [Time]19.7 [facility] INR1.99NOIN HealthcareComment on above: DESIRED INR: 2.0-3.0 CONDITIONS NOT LISTED BELOW 2.5-3.5 FOR PROSTHETIC HEART VALVE REPLACEMENT 2.5-3.5 RECURRENT THROMBOSIS [facility] NortheastOphthalmic OCT panelon 47-65-8791LSGWBarnes-Jewish West County HospitalRig Eye Images reviewed and comparison made to baseline, Images reviewed. To assess optic nerve function and for use in future follow-up. Reliability: good and adequate. Left Eye Images reviewed and comparison made to baseline, Images reviewed. To assess optic nerve function and for use in future follow-up. Reliability: good and adequate. Notes Good nerve fiber layer (NFL) thickness both eyes (OU). Stable.[facility] HealthcareRadiology Study observation (narrative)[facility] PROTHROMBIN TIME INR W/O COUMon 50-18-1136Cfjappjycuetkc and review of laboratory resultsAbnoLifecare Hospital of Chester CountyPT Coag (PPP) [Time]27 [facility] INR2.82NOIN HealthcareComment on above:DESIRED INR: 2.0-3.0 CONDITIONS NOT LISTED BELOW 2.5-3.5 FOR PROSTHETIC HEART VALVE REPLACEMENT 2.5-3.5 RECURRENT THROMBOSIS CLINISYNCNOMS HealthcareAmbulatory Visit Summaryon 71-58-6758Zumjcnxbwi Visit SummaryAmbulatory Visit Summary WILDA SEN :1945 Visit Date:07/12/2024 Ambulatory Visit Instructions Your Diagnosis Kidney stone Adrenal nodule Anticoagulated Your Care Team Attending Physician - Eugenia JACKSON MD Primary Care Physician - JAYME PEREZ [...] the Following Appointments Follow Up with Eugenia JACKSON MD, URL When: Where: [address] [place] [address] [place] [address]- Medications What How Much When Instructions Unchanged [...] may be greater depending (more content not included)...[facility] 97-28-2783Rqfxuajjj Reminders From: Julita Vu To: EU - Bang Jackson; Sent: 07/12/2024 12:09:59 EST Show up: [...] ) Other: PROVIDER RELATED REMINDER:_ ( ) [place] ( ) Call Pharmacy ( ) Call Lab ( ) Other: Special Instructions:_ Comments:_[facility] HospitalindersReminder From: Jo-Ann Schaeffer To: EU - Administrative; Sent: 07/12/2024 11:46:18 EST Show up: 04/17/2026 11:46:00 EDT Subject: 2 YR AND KUB Due Date/Time: 07/03/2026 11:46:00 EST Reminder/Recall SCHEDULE IN 2 YRS AND KUB W/ [facility] Office/Clinic Noteon 48-18-9998Aqmausc Office/Clinic NoteUrology Office/Clinic Note Chief Complaint 3 month F/U w KUB HPI Staff 18 mo with KUB due to kidney stones. KUB 07/05/24-[facility] *no uro meds Dysuria: denies [...] nodule. Not worrisome, stable. 3. Anticoagulated (Z79.01: custodial (current) use of anticoagulants) Warfarin for A-fib. [...] urine clear Follow-up With When Contact Information MANUEL AGUIAR, Eugenia Venegas, URL [address] [place] [address]- Additional Instructions: 18 mos with KUB Patient Education Dietary Guidelines to Help Prevent Kidney Stones I, Julita Vu, personally scribed for Dr. Jackson on 07/12/2024 11:45:03. . Portions of this record may have been created with voice recognition artificial intelligence software, specifically [employer], [employer] and or [employer]. Substitutions may have occurred due to [...] Oral, TID aspirin 8 (more content not included)...Wilson Street HospitalComment on above:Result Comment: Electronically Signed By: Eugenia JACKSON MD\.br\Date and Time Signed: 07/12/24 12:24 EST\.br\Electronically Co-Signed By: Julita Vu\.br\Date and Time Co-Signed: 07/12/24 11:46 ESTXR ABDOMEN 1Von 29-01-6610TpdMad[place] [address] XRay Report Signed Patient: WILDA SEN MR#: [id number] : 1945 Acct:[id number] Age/Sex: 79 / F ADM Date: 07/05/24 Loc: RAD Attending Dr: Eugenia Jackson M.D. Ordering Physician: Eugenia Jackson M.D. Date of Service: 07/05/24 Procedure(s): XR abdomen 1V Accession Number(s): [id number] cc: Eugenia Jackson M.D.; JAYME PEREZ [place] [address] Patient Name: WILDA SEN MRN: [id number]:[id number] date: 1945 Sex: F Assigned Patient Location: [facility] Current Patient Location: RAD Accession/Order Number: [id number] Exam Date: 07/05/2024 09:18 Report Date: 07/05/2024 [...] M.D. Signed By: 07/05/242321 DD/ 18 TD/TT: In Store Representative:TBHRadiology, Radiologist, MD - 07/05/2024 [place] [address] XRay Report Signed Patient: WILDA SEN MR#: [id number] : 1945 Acct:[id number] Age/Sex: 79 / F ADM Date: 07/05/24 Loc: RAD Attending Dr: Eugenia Jackson M.D. Ordering Physician: Eugenia Jackson M.D. Date of Service: 07/05/24 Procedure(s): XR abdomen 1V Accession Number(s): [id number] cc: Eugenia Jackson M.D.; JAYME PEREZ [place] [address] Patient Name: WILDA SEN MRN: [id number]:[id number] date: 1945 Sex: F Assigned Patient Location: [facility] Current Patient Location: [facility] Accession/Order Number: [id number] Exam Date: 07/05/2024 09:18 Report Date: 07/05/2024 [...] M.D. Signed By: 07/05/242321 DD/ 18 TD/TT: In Store Representative: YESSI HealthcareRadiology Study observation (narrative)NOM HealthcareXR ABDOMEN 1VOrdered By: Radiologist Radiology on 62-10-8152GJISBarnes-Jewish [facility] Hospital Work Phone: srmcoh PROTHROMBIN TIME INR W/O COUMon 07-01-2024 Interpretation and review of laboratory resultsAbnormalNOSt. Louis Children's HospitalPT Coag (PPP) [Time]30.3 sHighNOMS HealthcareTBH INR3.21NOIN HealthcareComment on above: DESIRED INR: 2.0-3.0 CONDITIONS NOT LISTED BELOW 2.5-3.5 FOR PROSTHETIC HEART VALVE REPLACEMENT 2.5-3.5 RECURRENT THROMBOSIS CLINISYNCNOIN HealthcareALL CBC WITH AUTO DIFFon 88-64-5107VLRODNYPB ABSOLUTE AUTO0.1NOMS HealthcareBasophils/100 WBC (Bld)0.8 %0.2 - 2.0 %NOMSaint Mary'S Health Center Eosinophils/100 WBC (Bld)3.2 %0.9 - 7.0 %NOMSaint Mary'S Health CenterErythrocyte distribution width (RBC) [Ratio]14.5 %11.0 - 15.0 %NOM HealthcareHematocrit (Bld) [Volume fraction]38.1 %36.0 - 48.0 %NOMSaint Mary'S Health CenterHemoglobin (Bld) [Mass/Vol]12.3 g/dL 12.0 - 16.0 g/dLNOSt. Louis Children's HospitalIMMATURE GRANULOCYTES ABS AUTO0.03NOSt. Louis Children's Hospital Immature granulocytes/100 WBC (Bld)0.5 %0.0 - 0.5 %[facility] HospitalInterpretation and review of laboratory resultsAbnormalNOSt. Louis Children's HospitalLYMPHOCYTES ABSOLUTE RPRO9GIGESt. Louis Children's HospitalLymphocytes/100 WBC (Bld)30.8 %20.5 - 60.0 %NOMSaint Mary'S Health Center MCH (RBC) [Entitic mass]31.6 pg26.7 - 34.0 pgNOHedrick Medical CenterHC (RBC) [Mass/Vol]32.3 g/dL29.9 - 35.2 g/dLNOSt. Louis Children's HospitalMCV (RBC) [Entitic vol]97.9 fL 81.0 - 99.0 fLNOIN HealthcareMONOCYTES ABSOLUTE AUTO0.5NOMS Healthcare Monocytes/100 WBC (Bld)7.7 %1.7 - 12.0 %NOMS HealthcareNEUTROPHILS ABSOLUTE AUTO 3.8NOMS HealthcareNeutrophils/100 WBC (Bld)57 %43.0 - 75.0 %NOMS Healthcare Platelet mean volume (Bld) [Entitic vol]8.9 fLLow9.5 - 13.5 fLNOSt. Louis Children's HospitalTBH EO #0.2NOMS HealthcareTBH [id number] [facility] HospitalTB RBC3.89LowNOMS [facility] HospitalTB WBC6.6NOIN HealthcareCLINISYNCNOMS HealthcareCT CHEST W CONTRASTon 74-22-2954BifMadeline, [place] [address] CT Scan Report Signed Patient: WILDA SEN MR#: [id number] : 1945 Acct:[id number] Age/Sex: 79 / F ADM Date: 05/14/24 Loc: CT Attending Dr: JAYME PEREZ Ordering Physician: JAYME PEREZ Date of Service: 05/14/24 Procedure(s): CT chest w con Accession Number(s): [id number] cc: JAYME PEREZ [place] [id number] Patient Name: WILDA SEN MRN: [id number] date: 1945 Sex: F Assigned Patient Location: CT Current Patient Location: Accession/Order Number: [id number] Exam Date: 05/14/2024 09:00 Report Date: 05/15/2024 [...] M.D. Signed By: 05/15/24725 DD/ 2 TD/TT: In Store Representative:ESAHRadiologuche, Radiologist, - 05/15/2024 [place] [address] CT Scan Report Signed Patient: WILDA SEN MR#: [id number] : 1945 Acct:[id number] Age/Sex: 79 / F ADM Date: 05/14/24 Loc: CT Attending Dr: JAYME PEREZ Ordering Physician: JAYME PEREZ Date of Service: 05/14/24 Procedure(s): CT chest w con Accession Number(s): [id number] cc: JAYME PEREZ [place] [address] Patient Name: WILDA SEN MRN: [id number]:[id number] date: 1945 Sex: F Assigned Patient Location: CT Current Patient Location: Accession/Order Number: [id number] Exam Date: 05/14/2024 09:00 Report Date: 05/15/2024 [...] M.D. Signed By: 05/15/24725 DD/ 2 TD/TT: In Store Representative: YESSI HealthcareRadiology Study observation (narrative)NOMS HealthcareCT CHEST W CONTRASTOrdered By: Radiologist Radiology on 71-37-5207OXUX Healthcare Work Phone: [facility] PROTHROMBIN TIME INR W/O COUMon 05-14-2024 Interpretation and review of laboratory resultsAbnormalNOMS HealthcarePT Coag (PPP) [Time]23 sHighNOMS HealthcareTBH INR2.36NOIN HealthcareComment on above: DESIRED INR: 2.0-3.0 CONDITIONS NOT LISTED BELOW 2.5-3.5 FOR PROSTHETIC HEART VALVE REPLACEMENT 2.5-3.5 RECURRENT THROMBOSIS CLINISYNCNOMS HealthcareCT ABDOMEN PELVIS W CONon 83-05-3236[address] [address] [address] Scan Report Signed Patient: WILDA SEN MR#: [id number] : 1945 Acct:[id number] Age/Sex: 79 / F ADM Date: 04/22/24 Loc: LAB Attending Dr: JAYME PEREZ Ordering Physician: JAYME PEREZ Date of Service: 04/22/24 Procedure(s): CT abdomen pelvis w con Accession Number(s): [id number] cc: JAYME PEREZ [address] [address] Patient Name: WILDA SEN MRN: [id number]:[id number] date: 1945 Sex: F Assigned Patient Location: LAB Current Patient Location: Accession/Order Number: [id number] Exam Date: 04/22/2024 12:40 Report Date: 04/23/2024 [...] M.D. Signed By: 04/23/24447 DD/ 4 TD/TT: In Store Representative:ESAHRadiology, Radiologist, - 04/23/2024 [place] [address] CT Scan Report Signed Patient: WILDA SEN MR#: [id number] : 1945 Acct:[id number] Age/Sex: 79 / F ADM Date: 04/22/24 Loc: LAB Attending Dr: JAYME PEREZ Ordering Physician: JAYME PEREZ Date of Service: 04/22/24 Procedure(s): CT abdomen pelvis w con Accession Number(s): [id number] cc: JAYME PEREZ [place] [id number] Patient Name: WILDA SEN MRN: [id number] date: 1945 Sex: F Assigned Patient Location: LAB Current Patient Location: Accession/Order Number: [id number] Exam Date: 04/22/2024 12:40 Report Date: 04/23/2024 [...] M.D. Signed By: 04/23/24447 DD/ 4 TD/TT: In Store Representative: [facility] HealthcareRadiology Study observation (narrative)[facility] HospitalCT ABDOMEN PELVIS W CONOrdered By: Radiologist Radiology on 97-95-7473VAQTBarnes-Jewish West County Hospital Work Phone: TBH CREATININEon 12-73-5822Pezlyqntxj [Mass/Vol]0.84 mg/dL0.55 - 1.02 mg/dLNOIN HealthcareGFR/1.73 sq M.predicted CKD-EPI (S/P/Bld) [Vol rate/Area]>60>=60 mL/min/1.73m 2NOMS HealthcareTBH EGFR-NON AF CONGOLESE>60 >=60 mL/min/1.73m 2NOMS HealthcareCLINISYNCNOMS HealthcareALL CBC WITH AUTO DIFF on 23-12-2830CPVCVHGND ABSOLUTE AUTO0.0NOSt. Louis Children's HospitalBasophils/100 WBC (Bld)0.6 %0.2 - 2.0 %NOMSaint Mary'S Health CenterEosinophils/100 WBC (Bld)2.1 %0.9 - 7.0 %[facility] HospitalErythrocyte distribution width (RBC) [Ratio]14.1 %11.0 - 15.0 %[facility] HospitalHematocrit (Bld) [Volume fraction]41.8 %36.0 - 48.0 %[facility] Hemoglobin (Bld) [Mass/Vol]13.5 g/dL12.0 - 16.0 g/dLBarnes-Jewish West County HospitalIMMATURE GRANULOCYTES ABS AUTO0.02NOSt. Louis Children's HospitalImmature granulocytes/100 WBC (Bld)0.3 % 0.0 - 0.5 %[facility] HospitalInterpretation and review of laboratory results AbnormalNOSt. Louis Children's HospitalLYMPHOCYTES ABSOLUTE AUTO2.1NOMS [facility] Lymphocytes/100 WBC (Bld)32.2 %20.5 - 60.0 %[facility] HealthH (RBC) [Entitic mass]31.0 pg26.7 - 34.0 pgCarondelet HealthHC (RBC) [Mass/Vol]32.3 g/dL29.9 - 35.2 g/dLCarondelet HealthV (RBC) [Entitic vol]95.9 fL81.0 - 99.0 fLBarnes-Jewish West County HospitalMONOCYTES ABSOLUTE AUTO0.5NOSt. Louis Children's HospitalMonocytes/100 WBC (Bld)6.8 % 1.7 - 12.0 %[facility] HospitalNEUTROPHILS ABSOLUTE AUTO3.8NOSt. Louis [facility] Hospital Neutrophils/100 WBC (Bld)58.0 %43.0 - 75.0 %[facility] HospitalPlatelet mean volume (Bld) [Entitic vol]8.6 fLLow9.5 - 13.5 fLBarnes-Jewish West County HospitalTB EO #0.1NOMS [facility] HospitalTB [id number] [facility] RBC4.36NOMissouri Rehabilitation Center WBC6.6NOSt. Louis Children's HospitalCLINISYNWayne HospitalOH PROTHROMBIN TIME INR W/O COUMon 40-09-3925Tyuloqhkskmmos and review of laboratory resultsAbnormalBarnes-Jewish [facility] Hospital PT Coag (PPP) [Time]27.7 sHighNResearch Medical CenterTBH INR2.90NOMS HealthcareComment on above:DESIRED INR: 2.0-3.0 CONDITIONS NOT LISTED BELOW 2.5-3.5 FOR PROSTHETIC HEART VALVE REPLACEMENT 2.5-3.5 RECURRENT THROMBOSIS CLINISYNCNOMS HealthcareMagnesium [Mass/volume] in Serum or PlasmaOrdered By: Radames Monteiro on 42-79-2291Xabrupjlp [Mass/Vol]1.9 mg/dLNormal1.9-2.7FAultman Alliance Community HospitalComment on above:Result Comment: PERFORMED BY: [place] [address] PATHOLOGIST BAG SEWER BERNIE GRAYSON M.D.Performed By: #### MG, PHOS #### [facility] [address] [place] [address] USAPhosphate [Mass/volume] in Serum or PlasmaOrdered By: Radames Monteiro on 01-01-1202Nhjjochzg [Mass/Vol]3.7 mg/dLNormal2.5-4.5FAultman Alliance Community HospitalComment on above:Performed By: #### MG, PHOS #### [facility] [address] [place] [address] USAALL CBC WITH AUTO DIFFon 53-94-7732KQUHUBCWD ABSOLUTE AUTO 0.0NOMS HealthcareBasophils/100 WBC (Bld)0.6 %0.2 - 2.0 %NOMS Healthcare Eosinophils/100 WBC (Bld)5.1 %0.9 - 7.0 %NOMS HealthcareErythrocyte distribution width (RBC) [Ratio]14.3 %11.0 - 15.0 %NOMS HealthcareHematocrit (Bld) [Volume fraction]41.5 %36.0 - 48.0 %NOMS HealthcareHemoglobin (Bld) [Mass/Vol]13.3 g/dL 12.0 - 16.0 g/dLNOIN HealthcareIMMATURE GRANULOCYTES ABS AUTO0.01NOMS Healthcare Immature granulocytes/100 WBC (Bld)0.1 %0.0 - 0.5 %NOMS HealthcareInterpretation and review of laboratory resultsAbnormalNOMS HealthcareLYMPHOCYTES ABSOLUTE AUTO2.9NOMS HealthcareLymphocytes/100 WBC (Bld)39.4 %20.5 - 60.0 %[facility] (RBC) [Entitic mass]30.9 pg26.7 - 34.0 pgCarondelet HealthHC (RBC) [Mass/Vol]32.0 g/dL29.9 - 35.2 g/dLCarondelet HealthV (RBC) [Entitic vol]96.5 fL 81.0 - 99.0 fLBarnes-Jewish West County HospitalMONOCYTES ABSOLUTE AUTO0.4[facility] Monocytes/100 WBC (Bld)6.1 %1.7 - 12.0 %[facility] HospitalNEUTROPHILS ABSOLUTE AUTO 3.5NOSt. Louis Children's HospitalNeutrophils/100 WBC (Bld)48.7 %43.0 - 75.0 %[facility] Platelet mean volume (Bld) [Entitic vol]8.7 fLLow9.5 - 13.5 fLBarnes-Jewish West County HospitalTB EO #0.4NOMS [facility] HospitalTB [id number] Rehabilitation Center RBC4.30NOMissouri Rehabilitation Center WBC 7.2NOMS [facility] HospitalCLINISYNWayne HospitalOH PROTHROMBIN TIME INR W/O COUMon 67-23-5456Arvyxolgedbazq and review of laboratory resultsAbHenry Ford [facility] PT Coag (PPP) [Time]28.2 sHigFormerly Regional Medical Center INR2.96NOSt. Louis Children's HospitalComment on above:DESIRED INR: 2.0-3.0 CONDITIONS NOT LISTED BELOW 2.5-3.5 FOR PROSTHETIC HEART VALVE REPLACEMENT 2.5-3.5 RECURRENT THROMBOSIS CLINISYNCBarnes-Jewish West County HospitalXR DEXA AXIAL SKELETONon 91-37-6942Eif[address] [address] XRay Report Signed Patient: WILDA SEN MR#: [id number] : 1945 Acct:[id number] Age/Sex: 78 / F ADM Date: 01/14/24 Loc: RAD Attending Dr: RADAMES MONTEIRO Ordering Physician: RADAMES MONTEIRO Date of Service: 01/14/24 Procedure(s): XR DEXA axial skeleton Accession Number(s): [id number] cc: JAYME PEREZ ; RADAMES MONTEIRO [place] [id number] Patient Name: WILDA SEN MRN: [id number]:[id number] date: 1945 Sex: F Assigned Patient Location: [facility] Current Patient Location: [facility] Accession/Order Number: [id number] Exam Date: 01/14/2024 12:48 Report Date: 01/14/2024 [...] prevention and treatment of osteoporosis. Osteoporos Int. 2021;33(10):8374-4677. doi: 10.1007/k90150-500-76292-m. Epub 2021Nov 08. Erratum in: Osteoporos Int. 2021Feb 07;: PMID: 42486538; PMCID: [id number]. Electronically authenticated by: MYRTLE KHOURY Date: 01/14/2024 15:50 Dictated By: Myrtle Khoury M.D. Signed By: 01/14/24 1553 DD/ 1550 TD/TT: In Store Representative:TBHRadiology, Radiologist, - 01/14/2024 [place] [address] XRay Report Signed Patient: WILDA SEN MR#: [id number] : 1945 Acct:[id number] Age/Sex: 78 / F ADM Date: 01/14/24 Loc: [facility] Attending Dr: RDAAMES MONTEIRO Ordering Physician: RADAMES MONTEIRO Date of Service: 01/14/24 Procedure(s): XR DEXA axial skeleton Accession Number(s): [id number] cc: JAYME PEREZ ; RADAMES MONTEIRO [place] [id number] Patient Name: WILDA SEN MRN: [id number] date: 1945 Sex: F Assigned Patient Location: [facility] Current Patient Location: [facility] Accession/Order Number: [id number] Exam Date: 01/14/2024 12:48 Report Date: 01/14/2024 [...] prevention and treatment of osteoporosis. Osteoporos Int. 2021;33(10):1929-6424. doi: 10.1007/o41975-975-07173-d. Epub 2021Nov 08. Erratum in: Osteoporos Int. 2021Feb 07;: PMID: 12011937; PMCID: [id number]. Electronically authenticated by: MYRTLE KHOURY Date: 01/14/2024 15:50 Dictated By: Myrtle Khoury M.D. Signed By: 01/14/24 155 DD/ 155 TD/TT: In Store Representative: [facility] HealthcareRadiology Study observation (narrative)NOM HealthcareXR DEXA AXIAL SKELETONOrdered By: Radiologist Radiology on 52-32-8785QARZ Healthcare Work Phone: XR ABDOMEN 1Von 44-41-4990[place], [place] [address] XRay Report Signed Patient: WILDA SEN MR#: [id number] : 1945 Acct:[id number] Age/Sex: 78 / F ADM Date: 10/08/23 Loc: RAD Attending Dr: Eugenia Jackson M.D. Ordering Physician: Eugenia Jackson M.D. Date of Service: 10/08/23 Procedure(s): XR abdomen 1V Accession Number(s): [id number] cc: Eugenia Jackson M.D.; JAYME PEREZ [place] [id number] Patient Name: WILDA SEN MRN: [id number]:[id number] date: 1945 Sex: F Assigned Patient Location: [facility] Current Patient Location: Accession/Order Number: [id number] Exam Date: 10/08/2023 10:37 Report Date: 10/09/2023 [...] M.D. Signed By: 10/09/23624 DD/ 1 TD/TT: In Store Representative:TBHRadiology, Radiologist, - 10/09/2023 [place] [address] XRay Report Signed Patient: WILDA SEN MR#: [id number] : 1945 Acct:[id number] Age/Sex: 78 / F ADM Date: 10/08/23 Loc: [facility] Attending Dr: Eugenia Jackson M.D. Ordering Physician: Eugenia Jackson M.D. Date of Service: 10/08/23 Procedure(s): XR abdomen 1V Accession Number(s): [id number] cc: Eugenia Jackson M.D.; JAYME PEREZ [place] [address] Patient Name: WILDA SEN MRN: [id number]:[id number] date: 1945 Sex: F Assigned Patient Location: [facility] Current Patient Location: Accession/Order Number: [id number] Exam Date: 10/08/2023 10:37 Report Date: 10/09/2023 [...] M.D. Signed By: 10/09/23624 DD/ 1 TD/TT: In Store Representative: YESSI HealthcareRadiology Study observation (narrative)NOM HealthcareXR ABDOMEN 1VOrdered By: Radiologist Radiology on 27-15-1617BFTIBarnes-Jewish West County Hospital Work Phone: all BUNon 09-37-5068Fpkh nitrogen [Mass/Vol]12.0 mg/dL 7.0 - 18.0 mg/dLNOIN HealthcareALL CARBON DIOXIDEon 21-22-3738KB8 [Moles/Vol] 30.1 mmol/L21.0 - 32.0 mmol/LNOMS HealthcareALL CHLORIDEon 98-24-0096Rlrkwnjs [Moles/Vol]104 mmol/L98 - 107 mmol/LNOMS HealthcareALL PHOSPHOROUSon 08-20-2023 Phosphate [Mass/Vol]4.1 mg/dL2.6 - 4.7 mg/dLNOIN HealthcareALL SODIUMon 76-38-9165Rgbvpl [Moles/Vol]141 mmol/L136 - 145 mmol/LNOMS HealthcareALL URIC ACIDon 75-25-6360Ltwom [Mass/Vol]4.4 mg/dL2.6 - 6.0 mg/dLBarnes-Jewish West County HospitalCCF CALCIUMon 97-01-4040Odsuiwo [Mass/Vol]9.1 mg/dL8.5 - 10.1 mg/dLBarnes-Jewish West County HospitalNo Panel Informationon 61-86-1057QYCQZAPCJEMCG HealthcareTB CREATININEon 70-49-5099Vyqlpzjhhn [Mass/Vol]0.86 mg/dL0.55 - 1.02 mg/dLBarnes-Jewish [facility] GFR/1.73 sq M.predicted CKD-EPI (S/P/Bld) [Vol rate/Area]>6060 - [facility] HospitalTB EGFR-NON AF CONGOLESE>6060 - [facility] HospitalCOVID/FLU/RSV RT-PCRon 26-17-6309MWBF-CoV-2 (COVID-19) RNA TREASURE+probe Ql (Unsp spec)Negative [place] Other COVID/FLU/RSV RT-PCRNegativeNoEncompass Health [employer] Other COVID/FLU/RSV RT-PCRPositiveFranciscan Health [employer] Other Activated partial thromboplastin time (aPTT) in platelet poor plasma by coagulation aOrdered By: Eugenia Jackson on 70-99-7427xQMJ Coag (PPP) [Time]35.9 s25.1-36.5FAultman Alliance Community HospitalComment on above:A hematocrit value greater than 55% may lead to inaccurate results in coagulation testing. Patientshaving hematocrit values >55% require a special collection tube for coagulation studies. Please contact the laboratory at [phone] for redraw instructions.Basophils Auto (Bld) [#/Vol]Ordered By: Eugenia Jackson on 71-45-9818Ojrejnrqo (Bld) [#/Vol]0.0 10*3/uL0.0-0.2FAultman Alliance Community HospitalBasophils/100 WBC Auto (Bld)Ordered By: Eugenia Jackson on 84-58-1526Rstudrcad/100 WBC (Bld)0.8 %.OhiohealthCalcium [Mass/volume] in Serum or PlasmaOrdered By: Eugenia Jackson on 37-00-0182Mlhmsmn [Mass/Vol]10.0 mg/dL8.6-10.3FAultman Alliance Community HospitalCarbon dioxide, total [Moles/volume] in Serum or PlasmaOrdered By: Eugenia Jackson on 73-07-3660NK7 [Moles/Vol]30.0 mmol/L21.0-31.0OhiohealthChloride [Moles/volume] in Serum or PlasmaOrdered By: Eugenia Jackson on 39-78-7490Fsevckmt [Moles/Vol]104 mmol/J95-594SfeqhoytyOhiohealthCreatinine [Mass/volume] in Serum or PlasmaOrdered By: Eugenia Jackson on 54-58-6782Malpoxqrbp [Mass/Vol]0.85 mg/dL0.60-1.20OhiohealthEosinophils Auto (Bld) [#/Vol]Ordered By: Eugenia Jackson on 38-91-8417Yqqekphaqcu (Bld) [#/Vol]0.3 10*3/uL0.0-0.45OhiohealthEosinophils/100 WBC Auto (Bld) Ordered By: Eugenia Jackson on 17-86-6665Sbxbyjuszky/100 WBC (Bld)4.3 %.OhiohealthErythrocyte distribution width Auto (RBC) [Ratio]Ordered By: Eugenia Jackson on 48-66-7351Xcarfdczhtz distribution width (RBC) [Ratio]14.8 % 11.9-15.3FAultman Alliance Community HospitalGlucose [Mass/volume] in Serum or PlasmaOrdered By: Eugenia Jackson on 32-97-2965Yufzrgv [Mass/Vol]111 mg/qW82-491 OhiohealthComment on above:ADA recommended reference rangeRandom Glucose Reference Range is dependent on time and content of last meal. Glucose of more than 200 mg/dL in a nonstressed, ambulatory subject supports the diagnosisof Diabetes Mellitus.Hematocrit Auto (Bld) [Volume fraction]Ordered By: Eugenia Jackson on 84-19-3398Xylvwguobl (Bld) [Volume fraction]40.3 %34.0-46.4FAultman Alliance Community HospitalHemoglobin [Mass/volume] in BloodOrdered By: Eugenia Jackson on 47-28-6455Lmwdwpbdtu (Bld) [Mass/Vol]13.3 g/dL11.8-15.4FAultman Alliance Community HospitalINR in Platelet poor plasma by Coagulation assayOrdered By: Eugenia Jackson on 33-24-9753KPS Coag (PPP) [Relative time]2.3 {INR}OhiohealthComment on above: INR Therapeutic Range A) Pre- [...] by Automated counOrdered By: Eugenia Jackson on 35-40-2862UJK corrected for nucl RBC Auto (Bld) [#/Vol]5.9 10*3/uL3.8-11.6FAultman Alliance Community HospitalLymphocytes Auto (Bld) [#/Vol]Ordered By: Eugenia Jackson on 67-78-0924Mulawllqqyu (Bld) [#/Vol]2.2 10*3/uL1.00-4.8OhiohealthLymphocytes/100 WBC Auto (Bld) Ordered By: Eugenia Jackson on 81-07-9570Jndunvzhinx/100 WBC (Bld)36.9 %.[facility] Auto (RBC) [Entitic mass]Ordered By: Eugenia Jackson on 45-79-5319ZCV (RBC) [Entitic mass]31.1 pg24.7-34.3FAultman Alliance Community HospitalMCHC Auto (RBC) [Mass/Vol]Ordered By: Eugenia Jackson on 60-02-1267LVNG (RBC) [Mass/Vol]32.9 g/dL32.0-35.0OhiohealthMCV Auto (RBC) [Entitic vol]Ordered By: Eugenia Jackson on 13-41-9057CXS (RBC) [Entitic vol]94.4 qI35-814GungkbemcOhiohealthMonocytes Auto (Bld) [#/Vol]Ordered By: Eugenia Jackson on 21-61-6181Vdionhgtd (Bld) [#/Vol]0.5 10*3/uL0.0-0.8OhiohealthMonocytes/100 WBC Auto (Bld)Ordered By: Eugenia Jackson on 08-96-0145Aftvyjyeg/100 WBC (Bld)7.8 %.[facility] Neutrophils Auto (Bld) [#/Vol]Ordered By: Eugenia Jackson on 93-81-5367Xclvwygbztl (Bld) [#/Vol]3.0 10*3/uL1.8-7.7FAultman Alliance Community HospitalNeutrophils/100 WBC Auto (Bld)Ordered By: Eugenia Jackson on 68-75-2184Zvsqdgtvvcb/100 WBC (Bld) 50.2 %.OhiohealthNo Panel InformationOrdered By: Eugenia Jackson on 99-12-0564Uwyvcpkuh GFR (CKD-EPI)> 60.0 mL/MinOhiohealthPharmacy Creatinine Clearance (ChemN/AFAultman Alliance Community Hospital Nucleated erythrocytes [Presence] in Blood by Automated countOrdered By: Eugenia Jackson on 45-77-4113Yhulxqein RBC Auto Ql (Bld)0.3 /100{WBC}0-0.5FAultman Alliance Community HospitalPlatelet mean volume Auto (Bld) [Entitic vol]Ordered By: Eugenia Jackson on 71-67-5504Rfqmkqvm mean volume (Bld) [Entitic vol]7.1 fL6.3-10.7 OhiohealthPlatelets Auto (Bld) [#/Vol]Ordered By: Eugenia Jackson on 06-63-0596Jqvqatvid (Bld) [#/Vol]363 10*3/cR031-608UfspljttyOhiohealthPotassium [Moles/volume] in Serum or PlasmaOrdered By: Eugenia Jackson on 21-08-5806Vftbxwfta [Moles/Vol]5.0 mmol/L3.5-5.1FAultman Alliance Community HospitalProthrombin time (PT)Ordered By: Eugenia Jackson on 36-84-0168RN Coag (PPP) [Time]26.6 s9.0-12.9OhiohealthComment on above:A hematocrit value greater than 55% may lead to inaccurate results in coagulation testing. Patientshaving hematocrit values >55% require a special collection tube for coagulation studies. Please contact the laboratory at [phone] for redraw instructions.RBC Auto (Bld) [#/Vol]Ordered By: Eugenia Jackson on 03-26-2023 RBC (Bld) [#/Vol]4.27 10*6/uL3.60-5.00[facility]field Hospitalerum or plasma anion gap determinationOrdered By: Eugenia Jackson on 54-37-7020Bieww gap [Moles/Vol]13.0 mmol/L6.0-15.0[facility] Hospitalodium [Moles/volume] in Serum or PlasmaOrdered By: Eugenia Jackson on 63-65-3137Crxvlv [Moles/Vol]142 mmol/A302-312HldtlacqyOhiohealthUrea nitrogen [Mass/volume] in Serum or PlasmaOrdered By: Eugeniachilo Jackson on 95-15-9903Joek nitrogen [Mass/Vol]12 mg/dL7-25OhiohealthWBC Auto (Bld) [#/Vol]Ordered By: Eugenia Maneul on 39-71-2755HEA (Bld) [#/Vol]5.9 10*3/uL 3.8-11.6FAultman Alliance Community HospitalPROTIMEon 63-89-5535ONL Coag (PPP) [Relative time]3.62 {INR}NormalCleveland Clinic Avon HospitalComment on above:Performed By: #### PT #### [facility] [address] [place] [address] Dr. Tg Cerda GUIDELINESSEE [facility] HospitalComc.[facility] on above:Result Comment: DESIRED INR: 2.0 - 3.0 CONDITIONS NOT LISTED BELOW 2.5 - 3.5 FOR PROSTHETIC HEART VALVE REPLACEMENT 2.5 - 3.5 RECURRENT THROMBOSIS Performed By: #### PT #### [facility] [address] [place] [address] Dr. Tg John Coag (PPP) [Time]35.7 sCritically high9.0-11.6ThCity HospitalComc.s. [facility] on above:Performed By: #### PT #### [facility] [address] [place] [address] Dr. Tg FierroPROTIMEon 65-99-4571HVT Coag (PPP) [Relative time]1.90 {INR} NormalCleveland Clinic Avon HospitalComment on above:Performed By: #### PT #### [facility] [address] [place] [address] Dr. Tg Cerda GUIDELINESSEE [facility] HospitalComc.[facility] on above:Result Comment: DESIRED INR: 2.0 - 3.0 CONDITIONS NOT LISTED BELOW 2.5 - 3.5 FOR PROSTHETIC HEART VALVE REPLACEMENT 2.5 - 3.5 RECURRENT THROMBOSIS Performed By: #### PT #### [facility] [address] [place] [address] Dr. Tg FierroPT Coag (PPP) [Time]19.4 sCritically high9.0-11.6The [facility]woodsComment on above:Performed By: #### PT #### [facility] [address] [place] [address] Dr. Tg Richards AUTO DIFFon 89-21-3325IGXZ #0.0 103/ulNormal0.0-0.1The [facility]woodsComment on above:Performed By: #### PT #### [facility] [address] [place] [address] Dr. Tg FierroBasophils/100 WBC (Bld)0.5 %Normal0.2-2.0The [facility] Comment on above:Performed By: #### PT #### [facility] [address] [place] [address] Dr. Mas ChangEO #0.2 103/ulNormal0.0-0.7The [facility]woodsComment on above: Performed By: #### PT #### [facility] [address] [place] [address] Dr. Tg Sandyosinophils/100 WBC (Bld)2.7 %Normal0.9-7.0The [facility] Comment on above:Performed By: #### PT #### [facility] [address] [place] [address] Dr. Tg Sandyrythrocyte distribution width (RBC) [Ratio]13.4 %Thzgcn33.0-15.0 The [facility] SouthwoodsComment on above:Performed By: #### PT #### [facility] [address] [place] [address] Dr. Tg FierroHematocrit (Bld) [Volume fraction]40.7 %Oodvsz86.0-48.0The [facility]woodsComment on above:Performed By: #### PT #### [facility] [address] [place] [address] Dr. Tg FierroHemoglobin (Bld) [Mass/Vol]13.2 g/pDXputbz73.0-16.0The [facility]woodsComment on above:Performed By: #### PT #### [facility] [address] [place] [address] Dr. Tg Gee #0.03 10e3/ulNormal0.00-0.03The [facility]woodsComment on above:Performed By: #### PT #### [facility] [address] [place] [address] Dr. Tg Gee %0.5 %Normal0.0-0.5The [facility]woodsComment on above: Performed By: #### PT #### [facility] [address] [place] [address] Dr. Tg Kate #2.1 103/ulNormal1.2-3.8The [facility]woodsComc.[facility] on above:Performed By: #### PT #### [facility] [address] [place] [address] Dr. Tg Armstronghocytes/100 WBC (Bld)34.9 %Gmhnsd62.5-60.0The [facility]woodsComment on above:Performed By: #### PT #### [facility] [address] [place] [address] Dr. Tg TorrezUAL DIFF REQNONormalThe [facility]woodsComment on above: Performed By: #### PT #### [facility] [address] [place] [address] Dr. Tg Clay (RBC) [Entitic mass]30.5 vnYzhfog50.7-34.0The [facility] SouthwoodsComment on above:Performed By: #### PT #### [facility] [address] [place] [address] Dr. Tg Clay (RBC) [Mass/Vol]32.4 g/jFBdktbk19.9-35.2The [facility] Hospitalment on above:Performed By: #### PT #### [facility] [address] [place] [address] Dr. Tg Clay (RBC) [Entitic vol]94.0 sDKxyuly52.0-99.0The [facility] SouthwoodsComment on above:Performed By: #### PT #### [facility] [address] [address] [address] Tg Siu #0.4 103/ulNormal0.3-0.8The [facility]woodsComment on above:Performed By: #### PT #### [facility] [address] [address] [address] Tg Zafarocytes/100 WBC (Bld)7.1 %Normal1.7-12.0The [facility] Comment on above:Performed By: #### PT #### [facility] [address] [place] [address] Dr. Tg Blackwell #3.2 103/ulNormal1.4-6.5The [facility] SouthwoodsComment on above:Performed By: #### PT #### [facility] [address] [place] [address] Dr. Tg Chuutrophils/100 WBC (Bld)54.3 %Sbdfif21.0-75.0The [facility]woodsComment on above:Performed By: #### PT #### [facility] [address] [place] [address] Dr. Tg Rodrigues mean volume (Bld) [Entitic vol]8.7 fLCritically low 9.5-13.5The [facility]woodsComment on above:Performed By: #### PT #### [facility] [address] [place] [address] Dr. Tg FierroPLT295 103/wrAqymjk223-926Adv [facility]woodsComment on above: Performed By: #### PT #### [facility] [address] [place] [address] Dr. Tg FierroRBC4.33 106/ulNormal4.20-5.40The [facility]woodsComment on above:Performed By: #### PT #### [facility] [address] [place] [address] Dr. Tg FierroWBC5.9 103/ulNormal4.0-11.0The [facility]woodsComment on above: Performed By: #### PT #### [facility] [address] [address] [address] Tg FierroPROF 14(COMP METB)on 66-75-7256Fcxgkcr [Mass/Vol]3.8 g/dLNormal 3.4-5.0The [facility]woodsComment on above:Performed By: #### CMP #### [facility] [address] [place] [address] Dr. Tg FierroAlbumin/Globulin [Mass ratio]1.2 {ratio}NormalThe [facility]woodsComment on above:Performed By: #### CMP #### [facility] [address] [place] [address] Dr. Tg FergusonP [Catalytic activity/Vol]49 U/DWezrzo49-768Zjj [facility]woodsComment on above:Performed By: #### CMP #### [facility] [address] [place] [address] Dr. Tg FergusonT [Catalytic activity/Vol]21 U/QYgwfdh07-16Qkf [facility]woodsComment on above:Performed By: #### CMP #### [facility] [address] [place] [address] Dr. Tg Biswas gap [Moles/Vol]13.3 mmol/LNormalThe [facility] Comment on above:Performed By: #### CMP #### [facility] [address] [place] [address] Dr. Tg FierroAST [Catalytic activity/Vol]14 U/LCritically ohs30-38Lds [facility] SouthwoodsComment on above:Performed By: #### CMP #### [facility] [address] [place] [address] Dr. Tg FierroBilirubin [Mass/Vol]0.5 mg/dLNormal0.2-1.0The [facility] Comment on above:Performed By: #### CMP #### [facility] [address] [place] [address] Dr. Tg FierroCalcium [Mass/Vol]9.5 mg/dLNormal8.5-10.1The [facility] Comment on above:Performed By: #### CMP #### [facility] [address] [address] [address] Tg FierroChloride [Moles/Vol]104 mmol/QCqyspt55-306Ihw [facility] Comment on above:Performed By: #### CMP #### [facility] [address] [address] [address] Tg FierroCO2 [Moles/Vol]29.3 mmol/QGhazyc50.0-32.0The [facility] Comment on above:Performed By: #### CMP #### [facility] [address] [address] [address] Tg FierroCreatinine [Mass/Vol]0.93 mg/dLNormal0.55-1.02C[facility] Clinic Avon HospitalComment on above:Performed By: #### CMP #### [facility] [address] [address] [address] Tg SandyGFR-AF CONGOLESE>60Normal>=60The [facility]woodsComment on above:Performed By: #### CMP #### [facility] [address] [address] [address] Tg SandyGFR-NON AF PHXRZPFR89 mL/min/1.03j0Qhvrpwwbew low>=60The [facility]woodsComment on above:Performed By: #### CMP #### [facility] [address] [address] [address] Tg FierroGlobulin (S) [Mass/Vol]3.2 g/dLNormalThe [facility]woodsComment on above:Performed By: #### CMP #### [facility] [address] [address] [address] Tg FierroGlucose [Mass/Vol]186 mg/dLCritically jehw54-475Bno [facility]woodsComment on above:Performed By: #### CMP #### [facility] [address] [address] [address] Tg FierroPotassium [Moles/Vol]4.6 mmol/LNormal3.5-5.1The [facility] Comment on above:Performed By: #### CMP #### [facility] [address] [address] [address] Tg FierroProtein [Mass/Vol]7.0 g/dLNormal6.4-8.2The [facility] Comment on above:Performed By: #### CMP #### [facility] [address] [address] [address] Tg FierroSodium [Moles/Vol]142 mmol/YPimsiy589-460Iou [facility] Comment on above:Performed By: #### CMP #### [facility] [address] [address] [address] Tg FierroUrea nitrogen [Mass/Vol]15.0 mg/dLNormal7.0-18.0The [facility] SouthwoodsComment on above:Performed By: #### CMP #### [facility] [address] [place] [address] Dr. Tg Bates nitrogen/Creatinine [Mass ratio]16.1 mg/mgNoMount Carmel Health SystemComment on above:Performed By: #### CMP #### [facility] [address] [place] [address] Dr. Tg Garber [facility] H[facility]PITALREN 10-77-9206XFZ RATE9 mm/hrNormal<=30The [facility] SouthwoodsComment on above:Performed By: #### CMP #### [facility] [address] [place] [address] Dr. Tg FierroPROTIMEon 54-09-6243GIK Coag (PPP) [Relative time]1.94 {INR} NormalThe [facility] SouthwoodsComment on above:Performed By: #### PT #### [facility] [address] [place] [address] Dr. Tg Cerda [facility] Medical CenterComment on above:Result Comment: DESIRED INR: 2.0 - 3.0 CONDITIONS NOT LISTED BELOW 2.5 - 3.5 FOR PROSTHETIC HEART VALVE REPLACEMENT 2.5 - 3.5 RECURRENT THROMBOSIS Performed By: #### PT #### [facility] [address] [place], [place] [id number] Dr. Tg FierroPT Coag (PPP) [Time]19.8 sCritically high9.0-11.6The [facility] SouthwoodsComment on above:Performed By: #### PT #### [facility] [address] [place] [address] Dr. Tg FierroC AUTO DIFFon 41-18-6642LZLB #0.1 103/ulNormal0.0-0.1The [facility] SouthwoodsComment on above:Performed By: #### PT #### [facility] [address] [place] [address] Dr. Tg FierroBasophils/100 WBC (Bld)0.7 %Normal0.2-2.0The [facility] Comment on above:Performed By: #### PT #### [facility] [address] [place] [address] Dr. Mas ChangEO #0.3 103/ulNormal0.0-0.7The [facility] SouthwoodsComment on above: Performed By: #### PT #### [facility] [address] [place] [address] Dr. Tg Sandyosinophils/100 WBC (Bld)3.6 %Normal0.9-7.0The [facility] Comment on above:Performed By: #### PT #### [facility] [address] [place] [address] Dr. Tg Sandyrythrocyte distribution width (RBC) [Ratio]13.4 %Zrrygf33.0-15.0 The [facility] SouthwoodsComment on above:Performed By: #### PT #### [facility] [address] [place] [address] Dr. Tg FierroHematocrit (Bld) [Volume fraction]38.4 %Pyvidf57.0-48.0The [facility] SouthwoodsComment on above:Performed By: #### PT #### [facility] [address] [place] [address] Dr. Tg FierroHemoglobin (Bld) [Mass/Vol]12.7 g/fJKchhfs29.0-16.0The [facility] SouthwoodsComment on above:Performed By: #### PT #### [facility] [address] [address] [address] Tg Gee #0.05 10e3/ulCritically high0.00-0.03The [facility] Comment on above:Performed By: #### PT #### [facility] [address] [address] [address] Tg Gee %0.7 %Critically high0.0-0.5The [facility] SouthwoodsComment on above:Performed By: #### PT #### [facility] [address] [place] [address] Dr. Tg Kate #2.6 103/ulNormal1.2-3.8The [facility] SouthwoodsComment on above:Performed By: #### PT #### [facility] [address] [place] [address] Dr. Tg Armstronghocytes/100 WBC (Bld)34.2 %Hcuqrv88.5-60.0The [facility] SouthwoodsComment on above:Performed By: #### PT #### [facility] [address] [place] [address] Dr. Tg TorrezUAL DIFF REQNONormalThe [facility] SouthwoodsComment on above: Performed By: #### PT #### [facility] [address] [place] [address] Dr. Tg Clay (RBC) [Entitic mass]31.2 xkHrgkmc12.7-34.0The [facility] SouthwoodsComment on above:Performed By: #### PT #### [facility] [address] [place] [address] Dr. Tg Clay (RBC) [Mass/Vol]33.1 g/kRAuggrj73.9-35.2The [facility] SouthwoodsComment on above:Performed By: #### PT #### [facility] [address] [place] [address] Dr. Tg Clay (RBC) [Entitic vol]94.3 wGPmpiry19.0-99.0The [facility] SouthwoodsComment on above:Performed By: #### PT #### [facility] [address] [place] [address] Dr. Tg Siu #0.6 103/ulNormal0.3-0.8The [facility] SouthwoodsComment on above:Performed By: #### PT #### [facility] [address] [place] [address] Dr. Tg Zafarocytes/100 WBC (Bld)8.1 %Normal1.7-12.0The [facility] Comment on above:Performed By: #### PT #### [facility] [address] [place] [address] Dr. Tg Blackwell #4.1 103/ulNormal1.4-6.5The [facility] SouthwoodsComment on above:Performed By: #### PT #### [facility] [address] [place] [address] Dr. Tg Chuutrophils/100 WBC (Bld)52.7 %Mjifhl07.0-75.0The [facility] SouthwoodsComment on above:Performed By: #### PT #### [facility] [address] [place] [address] Dr. Tg Rodrigues mean volume (Bld) [Entitic vol]8.7 fLCritically low 9.5-13.5The [facility] SouthwoodsComment on above:Performed By: #### PT #### [facility] [address] [place] [address] Dr. Tg FierroPLT278 103/yvLpxchd456-545Vue [facility] SouthwoodsComment on above: Performed By: #### PT #### [facility] [address] [place] [address] Dr. Tg FierroRBC4.07 106/ulCritically low4.20-5.40The [facility] SouthwoodsComment on above:Performed By: #### PT #### [facility] [address] [place] [address] Dr. Tg FierroWBC7.7 103/ulNormal4.0-11.0The [facility]arlake HospitalComment on above: Performed By: #### PT #### [facility] [address] [place] [address] Dr. Tg FierroPROAntonia 14(COMP METB)on 91-45-0253Hcaskba [Mass/Vol]3.9 g/dLNormal 3.4-5.0The [facility] SouthwoodsComment on above:Performed By: #### CMP #### [facility] [address] [place] [address] Dr. Tg FierroAlbumin/Globulin [Mass ratio]1.4 {ratio}NormalThe [facility] SouthwoodsComment on above:Performed By: #### CMP #### [facility] [address] [place] [address] Dr. Tg FergusonP [Catalytic activity/Vol]59 U/WFwunlb62-481Nbp [facility] SouthwoodsComment on above:Performed By: #### CMP #### [facility] [address] [place] [address] Dr. Tg FergusonT [Catalytic activity/Vol]21 U/LAettwx18-58Rbr [facility] SouthwoodsComment on above:Performed By: #### CMP #### [facility] [address] [place] [address] Dr. Tg Biswas gap [Moles/Vol]10.8 mmol/LNormalThe [facility] Comment on above:Performed By: #### CMP #### [facility] [address] [place] [address] Dr. Tg FierroAST [Catalytic activity/Vol]9 U/LCritically mdg12-76Eoz [facility] SouthwoodsComment on above:Performed By: #### CMP #### [facility] [address] [place] [address] Dr. Tg FierroBilirubin [Mass/Vol]0.3 mg/dLNormal0.2-1.0The [facility] Comment on above:Performed By: #### CMP #### [facility] [address] [place] [address] Dr. Tg FierroCalcium [Mass/Vol]9.1 mg/dLNormal8.5-10.1The [facility] Comment on above:Performed By: #### CMP #### [facility] [address] [address] [address] Tg iFerroChloride [Moles/Vol]104 mmol/CWblelo63-677Gvz [facility] Comment on above:Performed By: #### CMP #### [facility] [address] [address] [address] Tg FierroCO2 [Moles/Vol]28.3 mmol/KBzwxok98.0-32.0The [facility] Comment on above:Performed By: #### CMP #### [facility] [address] [address] [address] Tg FierroCreatinine [Mass/Vol]0.86 mg/dLNormal0.55-1.02[facility] HospitalComment on above:Performed By: #### CMP #### [facility] [address] [address] [address] Tg SandyGFR-AF CONGOLESE>60Normal>=60The [facility] SouthwoodsComment on above:Performed By: #### CMP #### [facility] [address] [address] [address] Tg SandyGFR-NON AF CONGOLESE>60Normal>=60The [facility] SouthwoodsComment on above:Performed By: #### CMP #### [facility] [address] [address] [address] Tg FierroGlobulin (S) [Mass/Vol]2.7 g/dLNormalThe [facility] SouthwoodsComment on above:Performed By: #### CMP #### [facility] [address] [address] [address] Tg FierroGlucose [Mass/Vol]120 mg/dLCritically rtam65-904Uhc [facility] SouthwoodsComment on above:Performed By: #### CMP #### [facility] [address] [address] [address] Tg FierroPotassium [Moles/Vol]4.1 mmol/LNormal3.5-5.1The [facility] Comment on above:Performed By: #### CMP #### [facility] [address] [place] [address] Dr. Tg FierroProtein [Mass/Vol]6.6 g/dLNormal6.4-8.2[facility] Comment on above:Performed By: #### CMP #### [facility] [address] [address] [address] Tg FierroSodium [Moles/Vol]139 mmol/GXayymu163-887Nic [facility] Comment on above:Performed By: #### CMP #### [facility] [address] [place] [address] Dr. Tg FierroUrea nitrogen [Mass/Vol]13.0 mg/dLNormal7.0-18.0The [facility]woodsComment on above:Performed By: #### CMP #### [facility] [address] [place] [address] Dr. Tg Bates nitrogen/Creatinine [Mass ratio]15.1 mg/mgNormUniversity Hospitals Parma Medical Centere [facility]woodsComment on above:Performed By: #### CMP #### [facility] [address] [place] [address] Dr. Tg FierroPROTIMEsanchez [id number] Coag (PPP) [Relative time]1.35 {INR} NormalCleveland Clinic Avon HospitalComment on above:Performed By: #### PT #### [facility] [address] [place] [address] Dr. Tg Cerda GUIDELINESSEE BELOWThe Surgical Hospital at SouthwoodsComment on above:Result Comment: DESIRED INR: 2.0 - 3.0 CONDITIONS NOT LISTED BELOW 2.5 - 3.5 FOR PROSTHETIC HEART VALVE REPLACEMENT 2.5 - 3.5 RECURRENT THROMBOSIS Performed By: #### PT #### [facility] [address] [place] [address] Dr. Tg FierroPT Coag (PPP) [Time]14.1 sCritically high9.0-11.6The [facility]woodsComment on above:Performed By: #### PT #### [facility] [address] [place] [address] Dr. Tg Garber RATE WESTERGRENon 67-80-8079FXC RATE8 mm/hrNormal<=30The [facility]woodsComment on above:Performed By: #### CMP #### [facility] [address] [place] [address] Dr. Tg FierroPROTIMEon [id number] Coag (PPP) [Relative time]1.23 {INR} NormalThe [facility]woodsComment on above:Performed By: #### PT #### [facility] [address] [place] [address] Dr. Tg Cerda GUIDELINESSEE BELOWNoMount Carmel Health SystemComment on above:Result Comment: DESIRED INR: 2.0 - 3.0 CONDITIONS NOT LISTED BELOW 2.5 - 3.5 FOR PROSTHETIC HEART VALVE REPLACEMENT 2.5 - 3.5 RECURRENT THROMBOSIS Performed By: #### PT #### [facility] [address] [place] [address] Dr. Tg FierroPT Coag (PPP) [Time]12.9 sCritically high9.0-11.6The [facility]woodsComment on above:Performed By: #### PT #### [facility] [address] [place] [address] Dr. Mas ChangECHOCARDIO M/2D COMPLETEon [id number] M/2D COMPLETE Patient: WILDA SEN Exam Date: 09/02/2022 : 1945 Gender:F Ordering : DR JAYME PEREZ . Admission #: [id number] Family : Order #: [id number] CLICK HERE TO VIEW EXAM ECHOCARDIOGRAM REPORT [...] by: Dez Bender M.D. on 09/03/2022 at 17:25[facility]woodsGLYCOHEMOGLOBIN A1Con 88-15-5492MGU RECOMMENDATIONSEE BELOWThe [facility] Hospital [facility] SouthwoodsComment on above:Result Comment: ADA RECOMMENDED LIMIT 4.0 - 6.0 ADA THERAPEUTIC TARGET < 7.0 ACTION SUGGESTED > 7.0Performed By: #### A1C #### [facility] [address] [place] [address] Dr. Tg FierroGlucose [Mass/Vol]148 mg/dLThe [facility] Hospital [facility] SouthwoodsComment on above:Performed By: #### A1C #### [facility] [address] [address] [address] Tg FierroHbA1c (Bld) [Mass fraction]6.8 %Critically high4.5-6.2The [facility]woodsComment on above:Performed By: #### A1C #### [facility] [address] [address] [address] Tg Richards AUTO DIFFon [id number] #0.1 103/ulNormal0.0-0.1The [facility] Hospitalment on above:Performed By: #### CBC #### [facility] [address] [address] [address] Tg FierroBasophils/100 WBC (Bld)0.8 %Normal0.2-2.0The [facility] Comment on above:Performed By: #### CBC #### [facility] [address] [place] [address] Dr. Tg Dent #0.5 103/ulNormal0.0-0.7The [facility]woodsComment on above: Performed By: #### CBC #### [facility] [address] [place] [address] Dr. Tg Sandyosinophils/100 WBC (Bld)7.3 %Critically high0.9-7.0The [facility]woodsComment on above:Performed By: #### CBC #### [facility] [address] [place] [address] Dr. Tg Sandyrythrocyte distribution width (RBC) [Ratio]13.4 %Caxccv42.0-15.0 The [facility] Hospitalment on above:Performed By: #### CBC #### [facility] [address] [place] [address] Dr. Tg FierroHematocrit (Bld) [Volume fraction]37.1 %Fwypsp16.0-48.0The [facility] Hospitalment on above:Performed By: #### CBC #### [facility] [address] [place] [address] Dr. Tg FierroHemoglobin (Bld) [Mass/Vol]12.9 g/wHVrmmvj16.0-16.0The [facility] Hospitalment on above:Performed By: #### CBC #### [facility] [address] [place] [address] Dr. Tg Gee #0.03 10e3/ulNormal0.00-0.03The [facility] on above:Performed By: #### CBC #### [facility] [address] [address] [address] Tg Gee %0.5 %Normal0.0-0.5The [facility] on above: Performed By: #### CBC #### [facility] [address] [address] [address] Tg Kate #2.3 103/ulNormal1.2-3.8The [facility]woodsComc.[facility] on above:Performed By: #### CBC #### [facility] [address] [place] [address] Dr. Tg Armstronghocytes/100 WBC (Bld)34.9 %Gzkpuf23.5-60.0The [facility]woodsComc.[facility] on above:Performed By: #### CBC #### [facility] [address] [place] [address] Dr. Tg Colon DIFF REQNONormalThe [facility]woodsComment on above: Performed By: #### CBC #### [facility] [address] [place] [address] Dr. Tg Medina (RBC) [Entitic mass]31.0 znGpyivk10.7-34.0The [facility] on above:Performed By: #### CBC #### [facility] [address] [place] [address] Dr. Tg Clay (RBC) [Mass/Vol]34.8 g/yTOapbil33.9-35.2The [facility] Hospitalment on above:Performed By: #### CBC #### [facility] [address] [place] [address] Dr. Tg Clay (RBC) [Entitic vol]89.2 zADerhsm97.0-99.0The [facility] on above:Performed By: #### CBC #### [facility] [address] [place] [address] Dr. Tg Siu #0.4 103/ulNormal0.3-0.8The [facility]woodsComment on above:Performed By: #### CBC #### [facility] [address] [place] [address] Dr. Tg Zafarocytes/100 WBC (Bld)6.1 %Normal1.7-12.0The [facility] Comment on above:Performed By: #### CBC #### [facility] [address] [place] [address] Dr. Tg Blackwell #3.3 103/ulNormal1.4-6.5The [facility]woodsComment on above:Performed By: #### CBC #### [facility] [address] [place] [address] Dr. Tg Chuutrophils/100 WBC (Bld)50.4 %Fatutw23.0-75.0The [facility]woodsComment on above:Performed By: #### CBC #### [facility] [address] [place] [address] Dr. Tg Augustelet mean volume (Bld) [Entitic vol]8.6 fLCritically low 9.5-13.5The [facility]woodsComment on above:Performed By: #### CBC #### [facility] [address] [place] [address] Dr. Tg FierroPLT336 103/mjWikjib286-324Zlp [facility]Comment on above: Performed By: #### CBC #### [facility] [address] [place] [address] Dr. Tg FierroRBC4.16 106/ulCritically low4.20-5.40The [facility]woodsComment on above:Performed By: #### CBC #### [facility] [address] [place] [address] Dr. Tg FierroWBC6.4 103/ulNormal4.0-11.0The [facility]woodsComment on above: Performed By: #### CBC #### [facility] [address] [place] [address] Dr. gT Pinon 14(COMP METB)on 60-85-1232Jdhuqkt [Mass/Vol]3.9 g/dLNormal 3.4-5.0The [facility]Comment on above:Performed By: #### PT #### [facility] [address] [place] [address] Dr. Tg FierroAlbumin/Globulin [Mass ratio]1.3 {ratio}NormalThe [facility]woodsComment on above:Performed By: #### PT #### [facility] [address] [place] [address] Dr. Tg FergusonP [Catalytic activity/Vol]60 U/XXtjzxs76-097Fsd [facility]Comment on above:Performed By: #### PT #### [facility] [address] [place] [address] Dr. Tg FergusonT [Catalytic activity/Vol]21 U/CGttrmr95-50Bqm [facility]woodsComment on above:Performed By: #### PT #### [facility] [address] [place] [address] Dr. Tg Biswas gap [Moles/Vol]15.2 mmol/LNormalThe [facility] Comment on above:Performed By: #### PT #### [facility] [address] [place] [address] Dr. Tg FierroAST [Catalytic activity/Vol]14 U/LCritically tvq43-25Tjc [facility]woodsComment on above:Performed By: #### PT #### [facility] [address] [place] [address] Dr. Tg FierroBilirubin [Mass/Vol]0.4 mg/dLNormal0.2-1.0The [facility] Comment on above:Performed By: #### PT #### [facility] [address] [place] [address] Dr. Tg FierroCalcium [Mass/Vol]9.3 mg/dLNormal8.5-10.1The [facility] Comment on above:Performed By: #### PT #### [facility] [address] [place] [address] Dr. Tg FierroChloride [Moles/Vol]102 mmol/YLmarfo46-803Gzj [facility] Comment on above:Performed By: #### PT #### [facility] [address] [address] [address] Tg FierroCO2 [Moles/Vol]26.8 mmol/PZztcyc76.0-32.0The [facility] Comment on above:Performed By: #### PT #### [facility] [address] [address] [address] Tg FierroCreatinine [Mass/Vol]0.74 mg/dLNormal0.55-1.02[facility] HospitalComment on above:Performed By: #### PT #### [facility] [address] [place] [address] Dr. Tg SandyGFR-AF CONGOLESE>60Normal>=60The [facility]Comment on above:Performed By: #### PT #### [facility] [address] [place] [address] Dr. Tg SandyGFR-NON AF CONGOLESE>60Normal>=60The [facility]Comment on above:Performed By: #### PT #### [facility] [address] [address] [address] Tg FierroGlobulin (S) [Mass/Vol]3.1 g/dLNormalThe [facility]Comment on above:Performed By: #### PT #### [facility] [address] [address] [address] Tg FierroGlucose [Mass/Vol]148 mg/dLCritically jyzq77-923Woe [facility]Comment on above:Performed By: #### PT #### [facility] [address] [address] [address] Tg FierroPotassium [Moles/Vol]4.0 mmol/LNormal3.5-5.1The [facility] Comment on above:Performed By: #### PT #### [facility] [address] [address] [address] Tg FierroProtein [Mass/Vol]7.0 g/dLNormal6.4-8.2The [facility] Comment on above:Performed By: #### PT #### [facility] [address] [address] [address] Tg FierroSodium [Moles/Vol]140 mmol/BFqleii805-656Kle [facility] Comment on above:Performed By: #### PT #### [facility] [address] [place] [address] Dr. Tg FierroUrea nitrogen [Mass/Vol]12.0 mg/dLNormal7.0-18.0The [facility]Comment on above:Performed By: #### PT #### [facility] [address] [place] [address] Dr. Tg FierroUrea nitrogen/Creatinine [Mass ratio]16.2 mg/mgNormalThe [facility]Comment on above:Performed By: #### PT #### [facility] [address] [place] [address] Dr. Tg FierroSED RATE WESTERGRENon 50-98-4908EQR RATE30 mm/hrNormal<=30The [facility]Comment on above:Performed By: #### SEDR #### [facility] [address] [place] [address] Dr. Tg Richards AUTO DIFFon 39-48-5678EADH #0.1 103/ulNormal0.0-0.1[facility] HospitalComment on above:Performed By: #### CBC #### [facility] [address] [place] [address] Dr. Tg FierroBasophils/100 WBC (Bld)0.6 %Normal0.2-2.0[facility] Comment on above:Performed By: #### CBC #### [facility] [address] [place] [address] Dr. Tg Dent #0.2 103/ulNormal0.0-0.7The [facility]woodsComment on above: Performed By: #### CBC #### [facility] [address] [place] [address] Dr. Tg Sandyosinophils/100 WBC (Bld)3.1 %Normal0.9-7.0The [facility] Comment on above:Performed By: #### CBC #### [facility] [address] [place] [address] Dr. Tg Sandyrythrocyte distribution width (RBC) [Ratio]13.6 %Oqsgdc50.0-15.0 The [facility]woodsComment on above:Performed By: #### CBC #### [facility] [address] [place] [address] Dr. Tg FierroHematocrit (Bld) [Volume fraction]42.3 %Lxsfoe63.0-48.0The [facility]woodsComment on above:Performed By: #### CBC #### [facility] [address] [place] [address] Dr. Tg FierroHemoglobin (Bld) [Mass/Vol]13.2 g/oAHdlwsq21.0-16.0The [facility]woodsComment on above:Performed By: #### CBC #### [facility] [address] [place] [address] Dr. Tg Gee #0.04 10e3/ulCritically high0.00-0.03The [facility] Comment on above:Performed By: #### CBC #### [facility] [address] [place] [address] Dr. Tg Gee %0.5 %Normal0.0-0.5The [facility]woodsComment on above: Performed By: #### CBC #### [facility] [address] [place] [address] Dr. Tg ArmstrongH #2.5 103/ulNormal1.2-3.8The [facility]woodsComment on above:Performed By: #### CBC #### [facility] [address] [place] [address] Dr. Tg Sanchezmphocytes/100 WBC (Bld)31.6 %Qwvvsk68.5-60.0The [facility]woodsComment on above:Performed By: #### CBC #### [facility] [address] [place] [address] Dr. Tg Colon DIFF REQNONormalThe [facility]woodsComment on above: Performed By: #### CBC #### [facility] [address] [place] [address] Dr. Tg Clay (RBC) [Entitic mass]30.3 rkTnanck06.7-34.0The [facility]woodsComment on above:Performed By: #### CBC #### [facility] [address] [place] [address] Dr. Tg Clay (RBC) [Mass/Vol]31.2 g/lRSfqjcd35.9-35.2The [facility]woodsComment on above:Performed By: #### CBC #### [facility] [address] [place] [address] Dr. Tg Parker (RBC) [Entitic vol]97.0 aRRowilf44.0-99.0The [facility]woodsComment on above:Performed By: #### CBC #### [facility] [address] [place] [address] Dr. Tg Siu #0.5 103/ulNormal0.3-0.8The [facility]woodsComment on above:Performed By: #### CBC #### [facility] [address] [place] [address] Dr. Tg Zafarocytes/100 WBC (Bld)6.3 %Normal1.7-12.0The [facility] Comment on above:Performed By: #### CBC #### [facility] [address] [place] [address] Dr. Tg Blackwell #4.5 103/ulNormal1.4-6.5The [facility]woodsComment on above:Performed By: #### CBC #### [facility] [address] [place] [address] Dr. Tg Chuutrophils/100 WBC (Bld)57.9 %Ycsyee08.0-75.0The [facility]woodsComment on above:Performed By: #### CBC #### [facility] [address] [place] [address] Dr. Tg Rodrigues mean volume (Bld) [Entitic vol]8.6 fLCritically low 9.5-13.5The [facility]woodsComment on above:Performed By: #### CBC #### [facility] [address] [place] [address] Dr. Tg FierroPLT295 103/rrVmtngl492-135Yly [facility]woodsComment on above: Performed By: #### CBC #### [facility] [address] [place] [address] Dr. Tg FierroRBC4.36 106/ulNormal4.20-5.40The [facility]woodsComment on above:Performed By: #### CBC #### [facility] [address] [place] [address] Dr. Tg FierroWBC7.8 103/ulNormal4.0-11.0The [facility]woodsComment on above: Performed By: #### CBC #### [facility] [address] [place] [address] Dr. Tg FierroPROF 14(COMP METB)on 96-81-6562Zwzcvat [Mass/Vol]4.5 g/dLNormal 3.4-5.0The [facility] on above:Performed By: #### CMP #### [facility] [address] [place] [address] Dr. Tg FierroAlbumin/Globulin [Mass ratio]1.5 {ratio}NormalThe [facility]woodsComc.[facility] on above:Performed By: #### CMP #### [facility] [address] [place] [address] Dr. Tg Pete [Catalytic activity/Vol]62 U/DHswali01-353Laz [facility]woodsComc.[facility] on above:Performed By: #### CMP #### [facility] [address] [place] [address] Dr. Tg Carrillo [Catalytic activity/Vol]25 U/HJoozgt25-10Dqj [facility]woodsComment on above:Performed By: #### CMP #### [facility] [address] [address] [address] Tg Biswas gap [Moles/Vol]10.6 mmol/LNormalThe [facility] Comment on above:Performed By: #### CMP #### [facility] [address] [address] [address] Tg FierroAST [Catalytic activity/Vol]12 U/LCritically tbr33-18Aes [facility]woodsComment on above:Performed By: #### CMP #### [facility] [address] [address] [address] Tg FierroBilirubin [Mass/Vol]0.5 mg/dLNormal0.2-1.0The [facility] Comment on above:Performed By: #### CMP #### [facility] [address] [address] [address] Tg FierroCalcium [Mass/Vol]9.8 mg/dLNormal8.5-10.1The [facility] Comment on above:Performed By: #### CMP #### [facility] [address] [place] [address] Dr. Tg FierroChloride [Moles/Vol]102 mmol/DVwcqfx75-338Ycq [facility] Comment on above:Performed By: #### CMP #### [facility] [address] [place] [address] Dr. Tg FierroCO2 [Moles/Vol]31.8 mmol/KApieqe47.0-32.0The [facility] Comment on above:Performed By: #### CMP #### [facility] [address] [place] [address] Dr. Tg FierroCreatinine [Mass/Vol]0.88 mg/dLNormal0.55-1.02The [facility]woodsComment on above:Performed By: #### CMP #### [facility] [address] [address] [address] Tg Perez-AF CONGOLESE>60Normal>=60The [facility]woodsComment on above:Performed By: #### CMP #### [facility] [address] [address] [address] Yilan ChangEGFR-NON AF CONGOLESE>60Normal>=60The [facility]woodsComment on above:Performed By: #### CMP #### [facility] [address] [address] [address] Tg FierroGlobulin (S) [Mass/Vol]3.1 g/dLNormPremier Health Miami [facility] Hospital SouthComment on above:Performed By: #### CMP #### [facility] [address] [address] [address] Tg FierroGlucose [Mass/Vol]187 mg/dLCritically zgsk01-724Drr [facility]woodsComment on above:Performed By: #### CMP #### [facility] [address] [place] [address] Dr. Tg FierroPotassium [Moles/Vol]4.4 mmol/LNormal3.5-5.1The [facility] Comment on above:Performed By: #### CMP #### [facility] [address] [place] [address] Dr. Tg FierroProtein [Mass/Vol]7.6 g/dLNormal6.4-8.2The [facility] Comment on above:Performed By: #### CMP #### [facility] [address] [place] [address] Dr. Tg FierroSodium [Moles/Vol]140 mmol/VBozmkg305-577Kuz [facility] Comment on above:Performed By: #### CMP #### [facility] [address] [place] [address] Dr. Tg FierroUrea nitrogen [Mass/Vol]14.0 mg/dLNormal7.0-18.0The [facility]woodsComment on above:Performed By: #### CMP #### [facility] [address] [place] [address] Dr. Tg Bates nitrogen/Creatinine [Mass ratio]15.9 mg/mgNormalThCity HospitalComment on above:Performed By: #### CMP #### [facility] [address] [place] [address] Dr. Tg Garber RATE WESTERGRENon 47-83-0356NDA RATE5 mm/hrNormal<=30The [facility]woodsComment on above:Performed By: #### SEDR #### [facility] [address] [place] [address] Dr. Tg Richards AUTO DIFFon 33-34-3486WNQY #0.0 103/ulNormal0.0-0.1The [facility]woodsComment on above:Performed By: #### PT #### [facility] [address] [place] [address] Dr. Tg FierroBasophils/100 WBC (Bld)0.6 %Normal0.2-2.0The [facility] Comment on above:Performed By: #### PT #### [facility] [address] [place] [address] Dr. Mas ChangESavage #0.4 103/ulNormal0.0-0.7The [facility]woodsComment on above: Performed By: #### PT #### The [facility] [address] [place] [address] Dr. Tg Sandyosinophils/100 WBC (Bld)5.4 %Normal0.9-7.0[facility] Comment on above:Performed By: #### PT #### [facility] [address] [place] [address] Dr. Tg Sandyrythrocyte distribution width (RBC) [Ratio]13.5 %Jzmaog29.0-15.0 The [facility] on above:Performed By: #### PT #### [facility] [address] [place] [address] Dr. Tg FierroHematocrit (Bld) [Volume fraction]39.4 %Vgumia21.0-48.0The [facility] on above:Performed By: #### PT #### [facility] [address] [place] [address] Dr. Tg FierroHemoglobin (Bld) [Mass/Vol]12.8 g/mOQguxwr67.0-16.0The [facility] on above:Performed By: #### PT #### [facility] [address] [place] [address] Dr. Tg Gee #0.02 10e3/ulNormal0.00-0.03The [facility] on above:Performed By: #### PT #### [facility] [address] [place] [address] Dr. Tg Gee %0.3 %Normal0.0-0.5The [facility] on above: Performed By: #### PT #### [facility] [address] [place] [address] Dr. Tg SanchezEliana #2.4 103/ulNormal1.2-3.8The [facility] on above:Performed By: #### PT #### [facility] [address] [place] [address] Dr. Tg Armstronghocytes/100 WBC (Bld)36.2 %Qahowa44.5-60.0The [facility] on above:Performed By: #### PT #### [facility] [address] [place] [address] Dr. Tg TorrezUAL DIFF REQNONormalThe [facility] on above: Performed By: #### PT #### [facility] [address] [place] [address] Dr. Tg Clay (RBC) [Entitic mass]31.0 atHgregm21.7-34.0The [facility] on above:Performed By: #### PT #### [facility] [address] [place] [address] Dr. Tg Clay (RBC) [Mass/Vol]32.5 g/nDJxhxaa20.9-35.2The [facility] on above:Performed By: #### PT #### [facility] [address] [place] [address] Dr. Tg Clay (RBC) [Entitic vol]95.4 qRDwkxdd82.0-99.0The [facility] on above:Performed By: #### PT #### [facility] [address] [address] [address] Tg Siu #0.5 103/ulNormal0.3-0.8The [facility] on above:Performed By: #### PT #### [facility] [address] [place] [address] Dr. Tg Zafarocytes/100 WBC (Bld)8.0 %Normal1.7-12.0The [facility] Comment on above:Performed By: #### PT #### [facility] [address] [place] [address] Dr. Tg Blackwell #3.3 103/ulNormal1.4-6.5The [facility] on above:Performed By: #### PT #### [facility] [address] [place] [address] Dr. Tg Chuutrophils/100 WBC (Bld)49.5 %Rrxcgf44.0-75.0The [facility] on above:Performed By: #### PT #### [facility] [address] [place] [address] Dr. Tg Augustelet mean volume (Bld) [Entitic vol]8.7 fLCritically low 9.5-13.5The [facility] above:Performed By: #### PT #### [facility] [address] [place] [address] Dr. Tg FierroPLT276 103/kvTqgvbz021-746Bam [facility] above: Performed By: #### PT #### [facility] [address] [place] [address] Dr. Tg FierroRBC4.13 106/ulCritically low4.20-5.40The [facility] on above:Performed By: #### PT #### [facility] [address] [place] [address] Dr. Tg FierroWBC6.7 103/ulNormal4.0-11.0The [facility] above: Performed By: #### PT #### [facility] [address] [place] [address] Dr. Tg FierroGLYCOHEMOGLOBIN A1Con 35-18-7655MLD RECOMMENDATIONSEE BELOWNormal [facility] on above:Result Comment: ADA RECOMMENDED LIMIT 4.0 - 6.0 ADA THERAPEUTIC TARGET < 7.0 ACTION SUGGESTED > 7.0Performed By: #### A1C #### [facility] [address] [place] [address] Dr. Tg FierroGlucose [Mass/Vol]151 mg/dLNormalThe [facility]Comc[facility] on above:Performed By: #### A1C #### [facility] [address] [place] [address] Dr. Tg FierroHbA1c (Bld) [Mass fraction]6.9 %Critically high4.5-6.2The [facility] on above:Performed By: #### A1C #### [facility] [address] [place] [address] Dr. Tg FierroPROF 14(COMP METB)on 20-64-7905Zbosdgw [Mass/Vol]3.8 g/dLNormal 3.4-5.0The [facility] on above:Performed By: #### PT #### [facility] [address] [place] [address] Dr. Tg FierroAlbumin/Globulin [Mass ratio]1.3 {ratio}NormalThe [facility] on above:Performed By: #### PT #### [facility] [address] [place] [address] Dr. Tg Pete [Catalytic activity/Vol]43 U/LCritically ckb57-305Jgz [facility]Comment on above:Performed By: #### PT #### [facility] [address] [place] [address] Dr. Tg Carrillo [Catalytic activity/Vol]19 U/TEddpmx15-73Iep [facility]Comment on above:Performed By: #### PT #### [facility] [address] [place] [address] Dr. Yilan ChangAnion gap [Moles/Vol]13.7 mmol/LNormalC[facility] Comment on above:Performed By: #### PT #### [facility] [address] [place] [address] Dr. Tg FierroAST [Catalytic activity/Vol]11 U/LCritically epk95-06Cbe [facility]Comment on above:Performed By: #### PT #### [facility] [address] [place] [address] Dr. Tg FierroBilirubin [Mass/Vol]0.4 mg/dLNormal0.2-1.0The [facility] Comment on above:Performed By: #### PT #### [facility] [address] [place] [address] Dr. Tg FierroCalcium [Mass/Vol]9.1 mg/dLNormal8.5-10.1The [facility] Comment on above:Performed By: #### PT #### [facility] [address] [place] [address] Dr. Tg FierroChloride [Moles/Vol]104 mmol/HUjznao83-990Ycm [facility] Comment on above:Performed By: #### PT #### [facility] [address] [place] [address] Dr. Tg FierroCO2 [Moles/Vol]28.5 mmol/RAmcidv87.0-32.0[facility] Comment on above:Performed By: #### PT #### [facility] [address] [place] [address] Dr. Tg FierroCreatinine [Mass/Vol]0.77 mg/dLNormal0.55-1.02The [facility]Comment on above:Performed By: #### PT #### [facility] [address] [place] [address] Dr. Tg SandyGFR-AF CONGOLESE>60Normal>=60The [facility] on above:Performed By: #### PT #### [facility] [address] [place] [address] Dr. Tg SandyGFR-NON AF CONGOLESE>60Normal>=60The [facility] on above:Performed By: #### PT #### [facility] [address] [address] [address] Tg FierroGlobulin (S) [Mass/Vol]3.0 g/dLNormalThCity HospitalComment on above:Performed By: #### PT #### [facility] [address] [address] [address] Tg FierroGlucose [Mass/Vol]124 mg/dLCritically uqcl78-197Yef [facility] on above:Performed By: #### PT #### [facility] [address] [address] [address] Tg FierroPotassium [Moles/Vol]4.2 mmol/LNormal3.5-5.1The [facility] Comment on above:Performed By: #### PT #### [facility] [address] [address] [address] Tg FierroProtein [Mass/Vol]6.8 g/dLNormal6.4-8.2[facility] Comment on above:Performed By: #### PT #### [facility] [address] [address] [address] Tg FierroSodium [Moles/Vol]142 mmol/IBfztsv270-020ZnmC[facility] Clinic [facility] Comment on above:Performed By: #### PT #### [facility] [address] [address] [address] Tg FierroUrea nitrogen [Mass/Vol]12.0 mg/dLNormal7.0-18.0The [facility]Comment on above:Performed By: #### PT #### [facility] [address] [address] [address] Tg FierroUrea nitrogen/Creatinine [Mass ratio]15.6 mg/mgNormalThCity HospitalComc.s. [facility] on above:Performed By: #### PT #### [facility] [address] [address] [address] Tg Garber RATE WESTERGRENon 04-85-8463KCH RATE8 mm/hrNormal<=30The [facility]woodsComment on above:Performed By: #### CMP #### [facility] [address] [place], [place] [address] Dr. Tg Almaraz Quick Testingon 59-88-4369JzmyhgKjlqyatoYnhxo [employer] Other Vital Signs Date TimeVital SignValuePerforming WzrxsdazhYubhomaj98-94-7817 14:20-0500Body nscwly821 cmEmanjit Perez MD Work Phone: [phone])608-[address] [place], [place] [address]Dpzylhtald39-17-3421 14:20-0500Body mass index (BMI) [Ratio]20.41 kg/u9NpnebiJayme Perez MD Work Phone: [phone])[address] [place], [place] 0584711-10-2025 14:20-0500Body okrbyd57.25 kgJayme Perez MD Work Phone: [phone])[address] [place], [place] 0584711-10-2025 14:20-0500Heart rate85 /min Jayme Perez MD Work Phone: 1(835)[facility] [place], [place] [address]Cgmraibpgz69-85-8503 14:20-5011VlU5% (BldA) [Mass fraction]99 %Jayme Perez MD Work Phone: [facility] HospitalXyfewbvhmu78-40-2607 15:00-0400Diastolic blood vmmkfimx39 mm[Hg]Jayme Perez MD Work Phone: [phone]08-04-2025 15:00-0400 Heart rate81 /Ramya Perez MD Work Phone: [phone])643-[address] [place], [place] 8065108-04-2025 15:00-0400 Respiratory rate16 /Ramya Perez MD Work Phone: [phone])[address] [place], [place] 1700408-04-2025 15:00-0400 SaO2% (BldA) [Mass fraction]98 %Jayme Perez MD Work Phone: [phone])[address] [place], [place] 1700408-04-2025 15:00-0400 Systolic blood qmnnycqi537 mm[Hg]Jayme Perez MD Work Phone: [facility]08-04-2025 13:03-0400 Body wiudfs999.02 cmEmanjit Perez MD Work Phone: [phone] [place], [place] 7523708-04-2025 13:03-0400 Body dcuyjaalzfn44 [degF]Jayme Perez MD Work Phone: 1(512)915-[address] [place], [place] 80[address]108-04-2025 13:03-0400 Body gesshx12.34 kgJayme Perez MD Work Phone: [phone] [place], [place] 7523706-26-2025 11:39-0400 Body vvfdas111 cmEmanjit Perez MD Work Phone: [phone]06-26-2025 11:39-0400Body mass index (BMI) [Ratio]22.5 kg/a2ReexjgJayme Perez MD Work Phone: [phone])[facility] [place], [place] [address]Nucmtrcudp07-65-6131 11:39-0400Body .61 kgJayme Perez MD Work Phone: 1(212)455-[address] [place], [place] [address]Ksjhanhwxf10-29-5185 11:35-0400Body otursp978 cm Jayme Perez MD Work Phone: 1(137)283-[address] [place], [place] [address]Ztivbynjnk20-69-1494 11:35-0400Body mass index (BMI) [Ratio]22.5 kg/c4VltmxbJayme Perez MD Work Phone: 1(771)[facility]9599[facility] HospitalEdxuvwmyck21-01-1294 11:35-0400Body .61 kgJayme Perez MD Work Phone: [facility] HospitalHvquucaqll26-05-5302 13:54-0400Body cm Jayme Perez MD Work Phone: [facility] HospitalHlxyllegzg45-64-0672 13:54-0400Body mass index (BMI) [Ratio]22.5 kg/v7ChawdvJayme Perez MD Work Phone: [facility] HospitalMxoqakxszz36-83-8162 13:54-0400Body qnecdm48.61 kgJayme Perez MD Work Phone: 1(567)[address] [place], [place] 0584704-24-2025 13:54-0400Diastolic blood qowwlvqk30 mm[Hg]Jayme Perez MD Work Phone: [phone] HospitalIvbzixvnbk22-97-2705 13:54-0400Heart xbax215 /min Jayme Perez MD Work Phone: [phone])[facility] HospitalTulrtzcwct78-82-7617 13:54-7911VpY9% (BldA) [Mass fraction]99 %Jayme Perez MD Work Phone: 1(832)[address] [place], [place] 0584704-24-2025 13:54-0400Systolic blood lexnrcws523 mm[Hg]Jayme Perez MD Work Phone: [phone])[address] [place], [place] 0584712-30-2024 11:03-0500Diastolic blood smzrvubx17 mm[Hg]Eugenia JACKSON [facility] [place] 452262-30-2024 11:03-0500Heart rate77 /minEugenia JACKSON [facility] [place] 452262-30-2024 11:03-0500Systolic blood bandoapu521 mm[Hg]Eugenia JACKSON [facility] [place] 452260-03-2024 14:16-0400Body qjkdiq863 cmEmanjit Perez MD Work Phone: [phone] HospitalYxkpzwxglg84-03-7473 14:16-0400Body mass index (BMI) [Ratio]21.79 kg/r4FetxjxJayme Perez MD Work Phone: [phone] HospitalGdismnuqex06-63-7173 14:16-0400Body pzetlo44.79 kgJayme Perez MD Work Phone: [phone] HospitalPxvgcjtdxp38-08-9551 14:16-0400Diastolic blood iwkkimdq08 mm[Hg]Jayme Perez MD Work Phone: [phone] HospitalNnmlecsilc71-01-9313 14:16-0400Heart rate87 /min Jayme Perez MD Work Phone: [facility] HospitalLzpbmqhytl26-22-1481 14:16-7306YzW9% (BldA) [Mass fraction]98 %Jayme Perez MD Work Phone: [facility] HospitalEkdcocwdcn42-78-5622 14:16-0400Systolic blood bnbyngmn781 mm[Hg]Jayme Perez MD Work Phone: [facility] HospitalOfdgdecifp81-23-5232 09:09-0400Body temperature 98.6 [degF]Eugenia JACKSON [facility] [place] [address]-02-2024 09:09-0400Diastolic blood mm[Hg]Eugenia JACKSON [facility]04-02-2024 09:09-0400Heart rate80 /minEugenia JACKSON [facility]04-02-2024 09:09-0400Respiratory rate16 /minEugenia JACKSON [facility]04-02-2024 09:09-0400Systolic blood jqvwuekt068 mm[Hg]Eugenia JACKSON [facility]01-31-2024 10:47-0500Blood Pressure LocationPatrick EATON [facility]01-31-2024 10:47-0500Diastolic blood odtbjpod73 mm[Hg]Renato EATON [facility]01-31-2024 10:47-0500Heart rate82 /minPatrick EATON [facility]01-31-2024 10:47-0500Respiratory rate16 /minPatricalexandra EATON [facility]01-31-2024 10:47-0500Systolic blood jcwpteup546 mm[Hg]Renato EATON [facility]01-25-2024 09:48-0500Body gxatgs499 cmEmanjit Perez MD Work Phone: [facility] HospitalRfyzapivcz80-36-2880 09:48-0500Body mass index (BMI) [Ratio]24.45 kg/i9KljntuJayme Perez MD Work Phone: [facility] HospitalEgugsvgexc18-56-5480 09:48-0500Body ylqlfl17.6 kg Jayme Perez MD Work Phone: [facility] HospitalYhohayuvzh18-02-9271 09:48-0500Heart rate57 /min Jayme Perez MD Work Phone: [facility] HospitalBoifhfltun58-39-1499 09:48-7960OyB1% (BldA) [Mass fraction]98 %Jayme Perez MD Work Phone: [facility] HospitalYtsobfmpod37-01-1473 09:20-0500Body tuskkq046.02 Kyaw Glover Other [employer] Other 01-12-2024 09:20-0500Body mass index (BMI) [Ratio] 23.91 kg/a4BhmvzLou Glover Other [employer] Other 01-12-2024 09:20-0500Body akcckmjritb95.7 [degF]Lou Glover Other [employer] Other 01-12-2024 09:20-0500Body ilgdec72.24 kgLou Glover Other [employer] Other 01-12-2024 09:20-0500Diastolic blood mm[Hg] Lou Glover Other [employer] Other 01-12-2024 09:20-0500Respiratory rate18 /minFrancheskaconchita Glover Other [facility] [employer] Other 01-12-2024 09:20-6386XbK7% (BldA) [Mass fraction]96 % Lou Glover Other [place] [employer] Other 01-12-2024 09:20-0500Systolic blood nqzrviqd755 mm[Hg] Lou Glover Other [place] [employer] Other 09-13-2023 13:15-0400Body uyjgdo536.02 cmMD Jayme Dione Work Phone: [phone] [place], [place] [address]109-13-2023 13:15-0400 Body qhjoobmknxp47.2 [degF]MD Jayme Perez Work Phone: [phone])182-[address] [place], [place] [address]109-13-2023 13:15-0400 Body oywznc40 kgMD Pérezganesh Shannantomás Work Phone: 1([phone])352-[address] [place], [place] [address]109-13-2023 13:15-0400 Diastolic blood urppvkgc89 mm[Hg]MD Jayme Perez Work Phone: 1(869)168-[address] [place], [place] [address]109-13-2023 13:15-0400 Heart rate87 /minMD Jayme Dione Work Phone: 1(343)730-[address] [place], [place] [address]109-13-2023 13:15-0400 Respiratory rate16 /minMD Pérezganesh Dione Work Phone: 1(392)801-[address] [place], [place] [address]109-13-2023 13:15-0400 SaO2% (BldA) [Mass fraction]97 %MD Jayme Perez Work Phone: [facility]09-13-2023 13:15-0400 Systolic blood tzmgzfny988 mm[Hg]MD Jayme Perez Work Phone: [facility]11-08-2021 13:15-0500 Body .02 Viola Baker Other [employer] Other 11-08-2021 13:15-0500Body mass index (BMI) [Ratio] 23.91 kg/w1VzvozdxjmAstrid Ryanault Other [employer] Other 11-08-2021 13:15-0500Body pfgsiqmnmvy42.3 [degF] Astrid Ryanault Other [employer] Other 11-08-2021 13:15-0500Body lfumsv97.24 kgStyeyo Ryanault Other [employer] Other 11-08-2021 13:15-2721AeQ7% (BldA) [Mass fraction]94 % Astrid Ryanault Other [employer] Other Encounters Encounter DateEncounter TypeCare ProviderFacilityStart: 05-23-2025 End: 15-91-6953Saegal outpatient visit 25 minutesJayme Perez MD Work Phone: [address]Comment on above:Type 2 diabetes mellitus with diabetic microalbuminuria, without long-term current use of insulin (HCC); Type 2 diabetes mellitus with stage 3a chronic kidney disease, without long-term current use of insulin (HCC); Stage 3a chronic kidney disease (CMS-HCC); Microalbuminuria; Paroxysmal atrial fibrillation (HCC); custodial current use of anticoagulantStart: 05-23-2025 End: 85-41-6196fziykzklceCKYDMS J HEMEYERNot AvailableStart: 05-23-2025 End: 19-39-4902Tluyuo flowsMatthew Perez MD Work Phone: [facility] [address] Family MedicineStart: 05-23-2025 End: 64-85-2541Nevgxt flowsheetJayme Perez MD Work Phone: NORD [address] Family MedicineStart: 05-20-2025 End: 44-84-7227Cpychefxa Result EncounterEdganesh Perez MD Work Phone: NOJG External Department UnsolicitedStart: 05-20-2025 End: 22-48-3238Oywzjjpdp Result EncounterEdganesh Perez MD Work Phone: noms External Department UnsolicitedStart: 04-19-2025 End: 94-19-4579Fyzcqtbjx Result EncounterEdganesh Perez MD Work Phone: noms External Department UnsolicitedStart: 04-19-2025 End: 82-97-2503Fklgpipyr Result EncounterEdganesh Perez MD Work Phone: noms External Department UnsolicitedStart: 04-05-2025 End: 29-09-0044Wnnarrkyw Result EncounterEdganesh Perez MD Work Phone: NOKI External Department UnsolicitedStart: 04-05-2025 End: 68-08-2597Ljjqrxsds Result EncounterEdganesh Perez MD Work Phone: NOAX External Department UnsolicitedStart: 03-08-2025 End: 99-62-8728Mcksjdahw Result Natasha Perez MD Work Phone: noms External Department UnsolicitedStart: 03-08-2025 End: 95-48-5620Jrqgtuiuj Result Natasha Perez MD Work Phone: NO External Department UnsolicitedStart: 02-14-2025 End: 36-19-2433Vjuuqiosn to same day surgery centerEugenia Venegas MD-[facility] CampusStart: 02-14-2025 End: 01-36-3761jwsnpuwqbdOwbojr J Hemeyer MD Work Phone: [facility] Work Phone: Start: 02-14-2025 End: 29-47-5762clnhrkiylpLeotzoy P MANUELYayacility:CD:[id number]: 02-11-2025 End: 87-39-4933Klbbgbb encounter procedureAurormoi Hermosillo REGISTRAR ASSISTANT-BC -Electrodiagnostics Work Phone: Start: 02-11-2025 End: 07-36-6790juvtspcvrsHabjpk J Hemeyer MD Work Phone: [facility] Work Phone: Start: 02-08-2025 End: 05-45-4275Bdgkfwpse Natasha Perez MD Work Phone: [facility] [address] Family MedicineComment on above:Med Change RequestStart: 02-08-2025 End: 38-50-8244Szopyq outpatient visit 25 minutesEdganesh Perez MD Work Phone: [facility] [address] Family MedicineComment on above:Kidney stone on left side (Primary Dx); Hospital discharge follow-upStart: 02-08-2025 End: 84-95-8001vcqmhnydllEROWLL J HEMEYERNot AvailableStart: 02-04-2025 End: 98-79-7954Kxsfksyhh Result EncounterGeneric External Data ProviderNOMS External Department UnsolicitedStart: 02-04-2025 End: 43-61-2467Ctjyiltra Result EncounterGeneric External Data ProviderNOMS External Department UnsolicitedStart: 02-04-2025 End: 87-93-8107wfshjvrqcoDhdusml D KatkoOhiohealth [facility] Work Phone: Start: 02-04-2025 End: 76-42-0365Khvlkjgq ReferredLobito Mejias DO-LAB [facility] Start: 02-02-2025 End: 57-74-2514Bxcfmbsrm Result EncounterGeneric External Data ProviderNOMS External Department UnsolicitedStart: 02-02-2025 End: 45-89-1547Ewlimygzn Result EncounterGeneric External Data ProviderNOMS External Department UnsolicitedStart: 01-31-2025 End: 90-57-9427Beqrheyow Result EncounterGeneric External Data ProviderNOMS External Department UnsolicitedStart: 01-31-2025 End: 35-27-3728Cjsuuofux Result EncounterGeneric External Data ProviderNOMS External Department UnsolicitedStart: 01-31-2025 End: 55-25-1378dngpvcbxpsMmkfzpv P COOKFacility:CD:[id number]: 01-21-2025 End: 91-73-4468Pztasymjl Result EncounterGeneric External Data ProviderNOMS External Department UnsolicitedStart: 01-21-2025 End: 42-37-9947Qyacrrfea Result EncounterGeneric External Data ProviderNOMS External Department UnsolicitedStart: 01-20-2025 End: 06-31-9205bjqgepqhyiVXZJMU J HEMEYERNot AvailableStart: 01-06-2025 End: 41-44-1531Bmwdlj flowsMatthew Perez MD Work Phone: [facility] CI FM 100Start: 01-06-2025 End: 04-22-1311Fudmdjharleen Perez MD Work Phone: [facility] CI FM 100Start: 01-06-2025 End: 91-46-8368Aetlgddhb Result EncounterEdganesh Perez MD Work Phone: NOM[facility] External Department UnsolicitedStart: 01-06-2025 End: 07-68-6624luuqhrqoybZKPSGZ J HEMEYERNot AvailableStart: 01-06-2025 End: 75-58-3984Djavcw outpatient visit 15 minutesEdganesh Perez MD Work Phone: [facility] CI FM 100Comment on above:Vertigo (Primary Dx) Start: 01-05-2025 End: 03-58-9901Htxryx flowsheetMeldylan Whitten PTANOMS CI PTStart: 01-05-2025 End: 26-30-3751Fezqii flowsheetMelissa Kelbley PTANOMS CI PTStart: 01-05-2025 End: 34-69-2952qgjqjlowkoKyjjuyf Kelbley PTANOMS CI PTComment on above:Vertigo (Primary Dx)Start: 12-31-2024 End: 21-44-5643Fuieqf flowsheetMelissa Kelbley PTANOMS CI PTStart: 12-31-2024 End: 36-25-9428Bndfqx flowsheetMelissa Kelbley PTANOMS CI PTStart: 12-31-2024 End: 43-74-5168lewktqsmurEykgplm Kelbley PTANOMS CI PTComment on above:Vertigo (Primary Dx)Start: 12-29-2024 End: 13-85-8240Bmohac flowsheetMelissa Kelbley PTANOMS CI PTStart: 12-29-2024 End: 50-50-7838Iqnepf flowsheetMelissa Kelbley PTANOMS CI PTStart: 12-29-2024 End: 59-95-2055vtslwhycidXuwtyvq Kelbley PTANOMS CI PTComment on above:Vertigo (Primary Dx)Start: 12-23-2024 End: 27-83-0502Ifzkrc flowsheetSammantha Narvaez PTNOMS CI PTStart: 12-23-2024 End: 17-56-4275Looedq flowsheetSammantha Narvaez PTNOMS CI PTStart: 12-23-2024 End: 05-78-5813qzvvlucvdxJbgxylcfg Narvaez PTNOMS CI PTComment on above: Vertigo (Primary Dx)Start: 12-22-2024 End: 09-59-4020Qekprf Judy Perez MD Work Phone: NOMS CI FM 100Start: 12-22-2024 End: 07-05-9293Wxayab Judy Perez MD Work Phone: NOMS CI FM 100Start: 12-22-2024 End: 23-26-7089Qipbqd outpatient visit 25 minutesJayme Perez MD Work Phone: NOMS CI FM 100Comment on above:Vertigo (Primary Dx); Paroxysmal atrial fibrillation (HCC); 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; Medication monitoring encounterStart: 12-22-2024 End: 62-55-1605jblhgsscxeTLYASV J HEMEYERNot AvailableStart: 12-08-2024 End: 03-11-3523Cdlfbmesw Result Natasha Perez MD Work Phone: NOMS External Department UnsolicitedStart: 12-08-2024 End: 57-60-4733Hfuroqoyz Result Natasha Perez MD Work Phone: NOMS External Department UnsolicitedStart: 11-24-2024 End: 24-81-4609Rnlhxqguc Result EncounterGeneric External Data ProviderNOMS External Department UnsolicitedStart: 11-24-2024 End: 55-96-9551Vkiregkep Result EncounterGeneric External Data ProviderNOMS External Department UnsolicitedStart: 11-24-2024 End: 25-64-3694Lpmicy OnlyJayme Perez MD Work Phone: N[facility]S CI FM 100Start: 11-04-2024 End: 00-82-1533Jucqdf flowsheetJayme Perez MD Work Phone: [facility] CI FM 100Start: 11-04-2024 End: 00-12-9369Mxhfah flowsMatthew Perez MD Work Phone: [facility] CI FM 100Start: 11-04-2024 End: 83-27-5358Aneoymi encounter procedureJayme Perez MD Work Phone: NOMS [...] current use of insulin (CMS/HCC); Immunosuppressed status (CMS/HCC)Start: 11-04-2024 End: 15-42-7491jphzvonzmtZYOBVO J HEMEYERNot AvailableStart: 11-02-2024 End: 00-42-3219Tixmjvkqv Result Natasha Perez MD Work Phone: NOHG External Department UnsolicitedStart: 11-02-2024 End: 82-96-8154Ssubflkdm Result Natasha Perez MD Work Phone: NOKC External Department UnsolicitedStart: 11-02-2024 End: 92-24-3236Ikxdng OnlyEdganesh Perez MD Work Phone: N[facility]S CI FM 100Comment on above:Type 2 diabetes mellitus with diabetic microalbuminuria, without long-term current use of insulin (CMS/HCC) (Primary Dx)Start: 10-25-2024 End: 24-60-5166Fybrcinvp Result Natasha Perez MD Work Phone: NOMS External Department UnsolicitedStart: 10-25-2024 End: 60-17-8771Zpjcwxeym Result Natasha Perez MD Work Phone: NOLM External Department UnsolicitedStart: 10-21-2024 End: 96-36-1245Soqdyr flowsMatthew Perez MD Work Phone: N[facility]S CI FM 100Start: 10-21-2024 End: 45-44-3897Cdiupo flowsMatthew Perez MD Work Phone: NOMS CI FM 100Start: 10-21-2024 End: 30-48-8631Sbyjhr outpatient visit 25 minutesEdganesh Perez MD Work Phone: NOMS CI FM 100Comment on above:Type 2 diabetes mellitus with stage 3a chronic kidney disease, without long-term current use of insulin (HCC) (CMS/HCC); Stage 3a chronic kidney disease (HCC) (CMS/HCC); Microalbuminuria; Paroxysmal atrial fibrillation (CMS/HCC); custodial current use of anticoagulantStart: 10-21-2024 End: 97-04-7002wgerydesqyQLNKCJ J HEMEYERNot AvailableStart: 10-18-2024 End: 06-78-5537Hzdjrormm Result EncounterGeneric External Data ProviderNOMS External Department UnsolicitedStart: 10-18-2024 End: 53-64-5367Wowdfxabi Result EncounterGeneric External Data ProviderNOMS External Department UnsolicitedStart: 10-16-2024 End: 15-07-4590SenhioTrxyeu J Hemeyer MD Work Phone: NOFP BNS FMComment on above:Paroxysmal atrial fibrillation ([facility])Start: 10-09-2024 End: 89-97-7859XyahueItuglg J Hemeyer MD Work Phone: NOMS CI FM 100Comment on above:Type 2 diabetes mellitus with stage 3a chronic kidney disease, without long-term current use of insulin (HCC) ([facility])Start: 09-27-2024 End: 12-75-4723Nrsptfqlj Result Natasha Perez MD Work Phone: noms External Department UnsolicitedStart: 09-27-2024 End: 98-70-6694Vrxpfovwf Result Natasha Perez MD Work Phone: NOER External Department UnsolicitedStart: 09-13-2024 End: 30-16-2078Udjpaufdz Result Natasha Perez MD Work Phone: NOJK External Department UnsolicitedStart: 09-13-2024 End: 41-38-1071Qgaufudjo Result Natasha Perez MD Work Phone: noms External Department UnsolicitedStart: 08-17-2024 End: 56-23-8106Hclttwwge Result Natasha Perez MD Work Phone: noms External Department UnsolicitedStart: 08-17-2024 End: 01-10-8441Rmnqzncui Result Natasha Perez MD Work Phone: NOMS External Department UnsolicitedStart: 08-04-2024 End: 57-05-7965Kzmora flowsRebecca Thornton DO Work Phone: NOMS NB OPHTStart: 08-04-2024 End: 41-98-1534Nqcfkp flowsRebecca Thornton DO Work Phone: noms NB OPHTStart: 08-04-2024 End: 62-84-1811qonjomszmcLJSQTZBT D ZAHLERNot AvailableStart: 07-19-2024 End: 22-34-7471Rkidikegm Result EncounterEdganesh Perez MD Work Phone: NOUO External Department UnsolicitedStart: 07-19-2024 End: 95-53-4212Laojaxthp Result EncounterEdganesh Perez MD Work Phone: NOUO External Department UnsolicitedStart: 07-12-2024 End: 93-67-5047yifkyqqjbnLbsmbve P COOKFacility:EU SanduskyStart: 07-12-2024 End: 86-58-8453Cchdqhx encounter procedureEugenia JACKSON [facility] Start: 07-05-2024 End: 86-71-3038Vzuuurihe Result EncounterGeneric External Data ProviderNOMS External Department UnsolicitedStart: 07-05-2024 End: 84-44-5611Fakonxlkw Result EncounterGeneric External Data ProviderNOMS External Department UnsolicitedStart: 07-01-2024 End: 34-19-2234Wcicohtjl Result EncounterEdgaensh Perez MD Work Phone: NORR External Department UnsolicitedStart: 07-01-2024 End: 98-80-4805Tlwjzqpig Result Natasha Perez MD Work Phone: NOEZ External Department UnsolicitedStart: 06-17-2024 End: 54-29-7015Havczzvph encounterEdganesh Perez MD Work Phone: N[facility]S CI FM 100Start: 06-16-2024 End: 63-17-6304Vconfahmk Result EncounterGeneric External Data ProviderNOMS External Department UnsolicitedStart: 06-16-2024 End: 26-62-5420Jawocgmju Result EncounterGeneric External Data ProviderNOMS External Department UnsolicitedStart: 05-15-2024 End: 69-53-7750Sdcaozfue Result EncounterEdganesh Perez MD Work Phone: NONB External Department UnsolicitedStart: 05-15-2024 End: 11-40-3539Cchbmnlwn Result EncounterEdganesh Perez MD Work Phone: NOAK External Department UnsolicitedStart: 05-14-2024 End: 71-93-9145Nieousfgf Result EncounterEdganesh Perez MD Work Phone: noms External Department UnsolicitedStart: 05-14-2024 End: 00-51-1816Deqmgtuqv Result EncounterEdganesh Perez MD Work Phone: noms External Department UnsolicitedStart: 04-23-2024 End: 54-93-2684Sttbfaowv Result EncounterEdganesh Perez MD Work Phone: noms External Department UnsolicitedStart: 04-23-2024 End: 49-62-7486Ofjcpsrsi Result EncounterEdganesh Perez MD Work Phone: noms External Department UnsolicitedStart: 04-22-2024 End: 18-20-5381Uwrhnngvl Result EncounterEdganesh Perez MD Work Phone: noms External Department UnsolicitedStart: 04-22-2024 End: 23-37-0662Dlkykanuh Result EncounterEdganesh Perez MD Work Phone: NOOD External Department UnsolicitedStart: 04-16-2024 End: 73-50-0104Jozjfbvll Result EncounterGeneric External Data ProviderNOMS External Department UnsolicitedStart: 04-16-2024 End: 50-21-3551Omlmpumcr Result EncounterGeneric External Data ProviderNOMS External Department UnsolicitedStart: 04-15-2024 End: 83-88-6527Bhcauc outpatient visit 25 minutesEdganesh Perez MD Work Phone: NOMS CI FM 100Comment on above:Paroxysmal atrial fibrillation (CMS/HCC) (Primary Dx); 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; Type 2 diabetes mellitus with stage 3a chronic kidney disease, without long-term current use of insulin (HCC) (CMS/HCC); Stage 3a chronic kidney disease (HCC) (CMS/HCC); Microalbuminuria; Unexplained weight loss; Chronic fatigue; Sleep arousal disorderStart: 04-13-2024 End: 69-48-9658Cgmolmvyv Result Natasha Perez MD Work Phone: noms External Department UnsolicitedStart: 04-13-2024 End: 22-92-2721Ddksvhldn Result Natasha Perez MD Work Phone: noms External Department UnsolicitedStart: 03-31-2024 End: 61-06-1224Lsgqhrr encounter procedureMD Jayme Perez Work Phone: [facility] [address] Work Phone: Start: 03-31-2024 End: 14-42-3027mtjxikdpfvRY Jayme Perez Work Phone: [facility] Work Phone: Start: 03-29-2024 End: 63-33-3230Lniocomln Result EncounterGeneric External Data ProviderNOMS External Department UnsolicitedStart: 03-29-2024 End: 59-20-4560Gpuiaqsmn Result EncounterGeneric External Data ProviderNOMS External Department UnsolicitedStart: 03-25-2024 End: 13-52-2218DoerlvIhwvuu J Hemeyer MD Work Phone: NOJP BNS FMComment on above:Type 2 diabetes mellitus with stage 3a chronic kidney disease, without long-term current use of insulin (HCC) ([facility]/HCC)Start: 03-17-2024 End: 20-86-9116Oiistyjhv Result Natasha Perez MD Work Phone: noms External Department UnsolicitedStart: 03-17-2024 End: 17-04-6150Ioedtctwd Result Natasha Perez MD Work Phone: NOSY External Department UnsolicitedStart: 01-14-2024 End: 97-14-3304Sxjyfyofl Result EncounterGeneric External Data ProviderNOMS External Department UnsolicitedStart: 01-14-2024 End: 05-27-9271Brhrkrcib Result EncounterGeneric External Data ProviderNOMS External Department UnsolicitedStart: 10-14-2023 End: 98-55-0716Ziwlnuc encounter procedureEugenia JACKSON [facility] Start: 10-09-2023 End: 38-36-9732Oxihxmdnf Result EncounterGeneric External Data ProviderNOMS External Department UnsolicitedStart: 10-09-2023 End: 22-99-5347Taypkfxqh Result EncounterGeneric External Data ProviderNOMS External Department UnsolicitedStart: 09-70-9140Emteezejb Result Encounter Generic External Data ProviderNOMS External Department UnsolicitedStart: 59-50-4996Qrjyetunq Result EncounterGeneric External Data ProviderNOMS External Department UnsolicitedStart: 08-13-2023 End: 21-19-7937Nkxgsax encounter procedureRenato EATON [facility] Start: 08-07-2023 End: 15-50-2903Pfiwlt outpatient visit 25 minutesEdganesh Perez MD Work Phone: NOUW BNS FMComment on above:Chronic diastolic heart failure (CMS/HCC) (Primary Dx); Paroxysmal atrial fibrillation (CMS/HCC); Type 2 diabetes mellitus with stage 3a chronic kidney disease, without long-term current use of insulin (HCC) (CMS/HCC); Stage 3a chronic kidney disease (HCC) (CMS/HCC); Microalbuminuria; Former smoker; 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, adult; custodial current use of anticoagulant; Psoriatic arthropathy (CMS/HCC); Gastroesophageal reflux disease without esophagitisStart: 07-25-2023 End: 23-18-4769cctlknleabHbzzj Keller [facility] [employer] Other Start: 25-51-4011Cpnflg outpatient visit 25 minutes [facility]deStart: 04-07-2023 End: 57-55-6196jwvrqnjettOM Jayme Perez Work Phone: [facility] Work Phone: Start: 04-07-2023 End: 96-26-5762Ppaodurf ReferredMD Jayme Perez Work Phone: [facility] OhioStart: 03-26-2023 End: 87-17-5559Dmampaa encounter procedureMD Jayme Perez Work Phone: [facility]Pre[facility] Work Phone: Start: 03-20-2023 End: 26-62-7771Hjg Drop offEugenia JACKSON [facility] Start: 03-20-2023 End: 34-75-2402Kjrxhth encounter procedureEugenia JACKSON [facility] Start: 11-11-2022 End: 43-82-8471lcsqhjophfTV EDWARD HEMEYER .Facility:G9Fkqfs: 10-25-2022 End: 04-97-4755ntgxnyosnuTP RADAMES MONTEIROFacility:X2Nvany: 10-14-2022 End: 42-97-0650zaroayghvbKL JAYME PEREZ .Facility:B1Endxr: 09-24-2022 End: 03-25-9544osznhzlgzrHN RADAMES MONTEIROFacility:A7Suwxd: 09-09-2022 End: 73-52-6304kiwwcdqiiyVX JAYME PEREZ .Facility:W8Cqris: 09-02-2022 End: 49-83-8062xrbdhhannpBQ EDGANESH ORRYER .Facility:I6Fovvz: 08-09-2022 End: 89-40-9598qsiycdmvbbDH JAYME PEREZ .Facility:Q6Iduxb: 08-05-2022 End: 70-96-4845turhyanqpdDS RADAMES MORROWFacility:O9Geqxc: 04-15-2022 End: 09-16-5971drozssvdulOW RADAMES MONTEIROFacility:T0Iwtsp: 02-20-2022 End: 80-92-3490iwbpuvbtxvTY RADAMES MONTEIROFacility:H7Etkmy: 02-07-2022 End: 06-75-3584wfrtcomhupEO JAYME PEREZ .Facility:C5Szeav: 05-21-2021 End: 14-72-0062bqutkmkuxpCweucndih Breault Other [place] [employer] Other Start: 07-44-5192Axdkuz outpatient visit 15 minutes [facility] Procedures DateProcedureProcedure DetailPerforming ClinicianStart: 59-37-2648IDYDNB PROTHROMBIN TIME INR W/O Kandy Perez MD Work Phone: Start: 93-47-5166TQV HEMOGLOBIN W2ECzkhbnJayme Perez MD Work Phone: Start: 21-37-2162KKRVWJ PROTHROMBIN TIME INR W/O COUM Jayme Perez MD Work Phone: Start: 88-79-1160BGCENQ PROTHROMBIN TIME INR W/O COUM Jayme Perez MD Work Phone: Start: 41-80-3491OdxdnzlowkJfupvr Hemeyer MD Work Phone: Start: 78-09-2637Wutzfn abdominal X-rayJayme Perez MD Work Phone: Start: 60-78-0496Kljke cultureJayme Perez MD Work Phone: Start: 15-64-3156AOZRT CULTURE - FRMCGeneric External Data ProviderStart: 25-34-3243CN ABDOMEN 1VGeneric External Data ProviderStart: 43-61-0195MVWWV CULTURE 2Generic External Data ProviderStart: 44-20-5661KBTUG CULTURE 1Generic External Data ProviderStart: 09-03-8949JQO CBC WITH AUTO DIFF Generic External Data ProviderStart: 37-62-8516TKDNAX PROTHROMBIN TIME INR W/O COUMJayme Perez MD Work Phone: Start: 95-02-7173NFCHWP PROTHROMBIN TIME INR W/O COUM Jayme Perez MD Work Phone: Start: 62-33-5793HGB CBC WITH AUTO DIFFGeneric External Data ProviderStart: 01-11-8638OOR MICROALB CREAT RATIO RANDOMJayme Perez MD Work Phone: Start: 14-15-2897AUUJGP PROTHROMBIN TIME INR W/O COUM Jayme Perez MD Work Phone: Start: 22-24-6300ZQQ CBC WITH AUTO DIFFGeneric External Data ProviderStart: 85-15-4993PALNJE PROTHROMBIN TIME INR W/O COUM Jayme Perez MD Work Phone: Start: 66-10-0177KIGPXY PROTHROMBIN TIME INR W/O COUM Jayme Perez MD Work Phone: Start: 64-49-2025UCKGWW PROTHROMBIN TIME INR W/O COUM Jayme Perez MD Work Phone: Start: 36-06-0639Jhhnwfdnebea ophthalmic imaging optic nerveFelicia Thornton DO Work Phone: Start: 08-04-2024 End: 20-51-1895Rmmhq medical xm&eval comprhnsv estab pt 1/>Glaucoma suspect of both eyesFelicia Thornton DO Work Phone: comment on above:Glaucoma suspect of both eyes (Primary Dx); Type 2 diabetes mellitus with stage 3a chronic kidney disease, without long-term current use of insulin (HCC) (CMS/HCC); Dry eyes; Blepharitis of upper and lower eyelids of both eyes, unspecified typeStart: 22-27-1795ZHHNKP PROTHROMBIN TIME INR W/O Kandy Perez MD Work Phone: Start: 64-26-6571EE ABDOMEN 1VGeneric External Data ProviderStart: 41-58-2588DXELQK PROTHROMBIN TIME INR W/O Kandy Perez MD Work Phone: Start: 21-09-4346QNK CBC WITH AUTO DIFFGeneric External Data ProviderStart: 22-12-2611AY CHEST W Andrew Perez MD Work Phone: Start: 95-90-4650CMCIHG PROTHROMBIN TIME INR W/O KRISTY Perez MD Work Phone: Start: 09-76-1046DA ABDOMEN PELVIS W Radhika Perez MD Work Phone: Start: 92-76-7430TIO CREATININEJayme Perez MD Work Phone: Start: 83-10-8072ZJU CBC WITH AUTO DIFFGeneric External Data ProviderStart: 54-04-9563SVSXKW PROTHROMBIN TIME INR W/O KRISTY Perez MD Work Phone: Start: 52-98-9292QXA CBC WITH AUTO DIFFGeneric External Data ProviderStart: 79-54-5069WMIUMI PROTHROMBIN TIME INR W/O COUM Jayme Perez MD Work Phone: Start: 83-73-5008RA DEXA AXIAL SKELETONGeneric External Data ProviderStart: 93-09-4479YZ ABDOMEN 1VGeneric External Data ProviderStart: 06-27-4352DYF BUNGeneric External Data ProviderStart: 08-20-2023 ALL CARBON DIOXIDEGeneric External Data ProviderStart: 59-31-5269FUV CHLORIDE Generic External Data ProviderStart: 61-04-2439FMI PHOSPHOROUSGeneric External Data ProviderStart: 21-35-2893XSB SODIUMGeneric External Data ProviderStart: 68-24-0284CVL URIC ACIDGeneric External Data ProviderStart: 68-17-0757AHK CALCIUMGeneric External Data ProviderStart: 04-61-1896AXL CREATININEGeneric External Data ProviderStart: 40-30-4009BepdmnxkdwwQppguxk COOK Start: 66-84-0690Kwefvfbelbhggf shockwave lithotripsy of calculus of kidneyEugenia JACKSON Start: 46-75-9790Dktbppnhkly laser lithotripsy of ureteric calculusEugenia JACKSON [employer] Start: 81-77-1675Bbynptbdyrm removal of ureteric stent Eugenia [facility] Start: 96-64-9914Rjcbpvhikuxdvs shockwave lithotripsy of calculus of kidneyEugenia JACKSON Start: 91-43-1475Fqdfunpfkq retrograde pyelogramEugenia JACKSON [employer] Start: 03-59-0067Laxmhlvsendtic shockwave lithotripsy of calculus of kidneyEugenia JACKSON [employer] Start: 94-70-0336Lhkqlglxsob removal of ureteric stent Eugenia JACKSON [employer] Start: 39-95-0256Duzshqioeiyxck shockwave lithotripsy of calculus of kidneyEugenia JACKSON Start: 51-94-0115Jkwrfqelhzf insertion of ureteric stentEugenia JACKSON Start: 10-02-4073Bykjfrrzqf retrograde pyelogramEugenia JACKSON [employer] Start: 70-02-8206Jfcraznjcqr anastomosis of ureter to bladder with insertion of stent into ureterEugenia [facility] [place] Abdominal hysterectomyPaarh our lady of the way hospitalk [employer] appendectomyPatrick EATON Extraction of cataractPaarh our lady of the way hospitalk EATON Partial lobectomy of lungColwell EATON TonsillectomyColwell [employer] Plan of Treatment DateCare ActivityDetailAuthorStart: 86-75-0452Vvnodndd screeningDiabetes: Retinopathy ScreeningNOIN HealthcareStart: 64-32-4532Boolktsfc vaccination Influenza Vaccine (#1)NOMS HealthcareComment on above:Postponed from 03/14/2025 (Patient Refused)Start: 19-23-4210Glnqtytq screeningDiabetes: Retinopathy ScreeningNOIN HealthcareStart: 11-14-2025 End: 03-25-6940Zltgxjd encounter eyhhoymcq88/04/2026 2:00 PM EDT [facility] [address] Jayme Perez MD [address] [address] [facility]En[facility] Hospital Of AltoonaFuentes46 Case Streettart: 43-12-8182Xvjwa screening for proteinDiabetes: Urine Protein ScreeningNOIN HealthcareStart: 10-21-2025 End: 85-59-5038Sggmisiblomia metabolic 2000 panel - Serum or PlasmaComprehensive metabolic panel Lab Routine Type 2 diabetes mellitus with diabetic microalbuminuria, without long-term current use of insulin (HCC) Type 2 diabetes mellitus with stage 3a chronic kidneydisease, without long-term current use of insulin (HCC) Expected: 10/21/2025, Expires: 01/19/2026NOIN Healthcare Work Phone: Comment on above:Expected: 10/21/2025, Expires: 01/19/2026Start: 10-21-2025 End: 27-02-3986Mgtyyagdpr A1c/Hemoglobin.total in BloodHemoglobin A1c Lab Routine Type 2 diabetes mellitus with diabetic microalbuminuria, without long-term current use of insulin (HCC) Expected: 10/21/2025, Expires: 01/19/2026 NOMS HealthcareComment on above:Expected: 10/21/2025, Expires: 01/19/2026Start: 10-21-2025 End: 91-53-4895Kkpag 1996 panel - Serum or PlasmaLipid panel Lab Routine Type 2 diabetes mellitus with stage 3a chronic kidney disease, without long-term current use of insulin (HCC) Expected: 10/21/2025, Expires: 01/19/2026NOIN HealthcareComment on above:Expected: 10/21/2025, Expires: 01/19/2026Start: 84-15-0943Ugktiqxzwm A1c measurementDiabetes: Hemoglobin G1BUPFEBarnes-Jewish [facility] Start: 62-23-1754Lrvbtsvvasff Vaccine: 65+ Years (1 of 2 - PCV)Pneumococcal Vaccine: 65+ Years (1 of 2 - PCV)[facility] HealthcareComment on above:Postponed from 1952 (Patient Refused)Postponed from 1965 (Patient Refused)Start: 06-29-2025 End: 14-94-5156Ucrcwtw encounter /17/2025 3:00 PM EST Office Visit [facility] [address] [place] [id number] Felicia Thornton DO [address] [place] [address] [facility] EyeStart: 05-23-2025 End: 32-00-5447Emibnov encounter procedureNOIN Fuentes 100 Family MedicineComment on above:Type 2 diabetes mellitus with diabetic microalbuminuria, without long- term current use of insulin (HCC); Type 2 diabetes mellitus with stage 3a chronic kidney disease, without long-term current use of insulin (HCC); Stage 3a chronic kidney disease (CMS-HCC); Microalbuminuria; Paroxysmal atrial fibrillation (HCC); custodial current use of anticoagulantStart: 26-33-8538Jcwflqap screening Diabetes: Retinopathy ScreeningBarnes-Jewish West County HospitalStart: 92-69-3015Ayzqziokdt A1c measurementDiabetes: Hemoglobin G0UWXVW HealthcareStart: 03-27-2025 End: 21-84-0445Srkfwaajjk A1c/Hemoglobin.total in BloodHemoglobin A1c Lab Routine Type 2 diabetes mellitus with stage 3a chronic kidney disease, without long-term current use of insulin (HCC) ([facility]/HCC) Expected: 03/27/2025 (Approximate), Expires: 10/25/2025NOMS HealthcareComment on above:Expected: 03/27/2025 (Approximate), Expires: 10/25/2025Start: 27-11-6714Zhrnragbw vaccinationVALLEY VIEW MEDICAL CENTER HealthcareStart: 00-66-4366LazpllxoaOhiohealth Start: 65-46-7051RlcuttbbvMercy Health Fairfield Hospitaltart: 67-66-0990Ievkkq abdominal X-rayMercy Health Fairfield Hospitaltart: 46-15-2964XczqxxzwgMercy Health Fairfield Hospitaltart: 02-08-2025 End: 12-94-0239Ckuvbsx encounter fjjblpsuc55/29/2025 10:30 AM EDT Office Visit [facility] [address] [place] [address] Jayme Perez MD [address] [place] [address] (Fax)[facility] CI FM 100Start: 75-16-4412Hqrimvij identified in Urine by CultureUrine [facility] Start: 77-92-7753Byzfb cultureMercy Health Fairfield Hospitaltart: 02-02-2025 End: 48-29-5737Wbaxvcv encounter xuomqhfbi00/23/2025 1:30 PM EDT Office Visit [facility] [address] [place] [address] Felicia Thornton DO [address] [place] [address] NOMS NB OPHTStart: 47-52-7620Uucaliyia vaccination Influenza Vaccine (#1)NOMS HealthcareComment on above:Postponed from 03/14/2024 (Patient Refused)Start: 01-10-2025 End: 50-85-7259rxdohppljm71/30/2025 11:00 AM EDT Treatment [facility] [address] [place] [address] Joselyn Narvaez, PTNOMS CI PTStart: 01-07-2025 End: 80-15-0568psyrucxdug04/27/2025 12:00 PM EDT Treatment [facility] [address] [place] [address] Clara Whitten, CLAIM REPRESENTATIVE [facility] CI PTStart: 01-05-2025 End: 66-10-3467mozbenljuyKKVZ CI PTComment on above:ArrivedStart: 12-31-2024 End: 84-74-6836ungainelyuKAPF CI PTComment on above:Vertigo (Primary Dx)Start: 12-29-2024 End: 81-28-0669muejwbezfmHGSO CI PTComment on above:ArrivedStart: 12-23-2024 End: 03-53-5219tfuvwstthj29/12/2025 12:30 PM EDT Evaluation [facility] [address] [place] [address] Joselyn Narvaez, PT Vertigo (Primary Dx)NOM[facility] CI PTComment on above:Vertigo (Primary Dx)Start: 12-22-2024 End: 08-66-8713Vtklahw encounter /11/2025 11:45 AM EDT Office Visit [facility] [address] [place] [address] Jayme Perez MD [address] [place] [address] (Fax) ArrivedNOMS CI FM 100Comment on above: ArrivedStart: 11-04-2024 End: 43-25-5364Szubhid encounter procedureNOMS CI FM 100Comment on above: Encounter for Medicare annual wellness exam; Advance directive discussed with patient; Encounter for screening for other disorder; Screening for alcohol problem; Screening mammogram, encounter forStart: 10-25-2024 End: 31-86-2200Yznsnlgcmsds/Creatinine panel in random UrineMicroalbumin / creatinine urine ratio Lab Routine Type 2 diabetes mellitus with stage 3a chronic kidney disease, without long-term current use of insulin (HCC) (CMS/HCC) Stage 3a chronic kidney disease (HCC) (CMS/HCC) Microalbuminuria Expected: 10/25/2024 (Approximate), Expires: 10/25/2025NOIN Healthcare Work Phone: Comment on above:Expected: 10/25/2024 (Approximate), Expires: 10/25/2025Start: 10-21-2024 End: 18-33-3552Ppvpqar encounter procedureNOMS CI FM 100Comment on above:Type 2 diabetes mellitus with stage 3a chronic kidney disease, without long-term current use of insulin (HCC) (CMS/HCC); Stage 3a chronic kidney disease (HCC) (CMS/HCC); Microalbuminuria; Paroxysmal atrial fibrillation (CMS/HCC); 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Start: 10-14-2024 End: 96-12-9836A6, reverseT3, reverse Lab Routine Chronic fatigue Expected: 10/14/2024 (Approximate), Expires: 04/15/2025NOIN HealthcareComment on above: Expected: 10/14/2024 (Approximate), Expires: 04/15/2025Start: 10-14-2024 End: 72-92-1120Crzzdgbchvb [Units/volume] in Serum or PlasmaTSH Lab Routine Chronic fatigue Expected: 10/14/2024 (Approximate), Expires: 04/15/2025NOIN HealthcareComment on above:Expected: 10/14/2024 (Approximate), Expires: 04/15/2025Start: 10-14-2024 End: 64-70-7800Tkocufszd (T4) free [Mass/volume] in Serum or PlasmaT4, free Lab Routine Chronic fatigue Expected: 10/14/2024 (Approximate), Expires: 04/15/2025 [facility] HealthcareComment on above:Expected: 10/14/2024 (Approximate), Expires: 04/15/2025Start: 10-14-2024 End: 34-78-3784Wpsipyihfwdnhhzw (T3) [Mass/volume] in Serum or PlasmaT3 Lab Routine Chronic fatigue Expected: 10/14/2024 (Approximate), Expires: 04/15/2025 [facility] Work Phone: Comment on above:Expected: 10/14/2024 (Approximate), Expires: 04/15/2025Start: 10-14-2024 End: 98-42-0505Nxhizpuytfrnnwlh (T3) Free [Mass/volume] in Serum or PlasmaT3, free Lab Routine Chronic fatigue Expected: 10/14/2024 (Approximate), Expires: 04/15/2025NOMS HealthcareComment on above:Expected: 10/14/2024 (Approximate), Expires: 04/15/2025Start: 08-04-2024 End: 46-60-2223Vagioqq encounter procedureNOSAINT LOU[facility] OPHTComment on above:Arrived Start: 11-09-2024Medicare Annual Wellness (AWV)Medicare Annual Wellness (AWV) [facility] HealthcareStart: 04-15-2024 End: 14-45-3575Flprqrw encounter ghltstxan54/03/2024 2:30 PM EDT Office Visit [facility] 100 [address] [facility] [address] [place] [id number] Jayme Perez MD [address] [place] [address] (Fax)[facility] CI FM 100Start: 95-12-0705Ayheeihgw vaccination Influenza Vaccine (#1)[facility] HealthcareStart: 94-24-9858Pzfey screening for proteinDiabetes: Urine Protein ScreeningNOIN HealthcareStart: 09-01-2023 End: 14-85-1313Odjmgaa encounter awwyefcpp80/19/2024 10:30 AM EST Office Visit [facility] [address] [place] [id number] Felicia Thornton DO [address] [place] [address] [facility] NB OPHTStart: 11-06-6908Zsczyblryv A1c measurementDiabetes: Hemoglobin O9TBVCD HealthcareStart: 60-04-4528Yekgrbo endoscopyOR Cysto/Retro/Stent/Stone/Holmium Laser (Right)[facility] Hospitaltart: 25-36-1856Vlkbeirzj vaccinationInfluenza Vaccine (#1)[facility] HealthcareStart: 42-86-4569Kghzc screening for proteinDiabetes: Urine Protein ScreeningVALLEY VIEW MEDICAL CENTER HealthcareStart: 22-20-9938GBrL/Tdap/Td Vaccines (1 - Tdap) DTaP/Tdap/Td Vaccines (1 - Tdap)[facility] HealthcareStart: 62-07-6820Euuuuacjmwei Vaccine: 65+ Years (1 - PCV)Pneumococcal Vaccine: 65+ Years (1 - PCV)[facility] HealthcareStart: 32-48-3604Zxjuhsjmmvhi Vaccine: 65+ Years (1 of 2 - PCV) Pneumococcal Vaccine: 65+ Years (1 of 2 - PCV)[facility] HealthcareStart: 1950 COVID-19 Vaccine (#1)COVID-19 Vaccine (#1)[facility] HealthcareStart: 60-74-5697Reme Cancer ScreeningSkin Cancer ScreeningNOSt. Louis Children's HospitalBilirubin measurement OhiohealthBLOOD CULTURE 1BLOOD CULTURE 1 Lab Routine 01/31/2025 9:50 AM EDTNOIN HealthcareBLOOD CULTURE 2BLOOD CULTURE 2 Lab Routine 01/31/2025 9:56 AM EDTVALLEY VIEW MEDICAL [facility]ENTER HealthcareBody weightOhiohealthCalcium carbonate/Total in [facility] HospitalCalcium hydrogen phosphate dihydrate/Total in [facility] Calcium oxalate monohydrate/Total in [facility] Calcium phosphate levelOhiohealthCalculus analysis with calculus photography [Interpretation] in [facility] Calculus analysis, qualitativeOhiohealthCalculus analysis, quantitativeOhiohealthCalculus analysis, quantitative, infrared spectroscopyOhiohealthCellular material [Mass/mass] of Stone by [facility] Cholesterol [Mass/volume] in Serum or PlasmaOhiohealth Cystine measurementOhiohealthDetermination of calculus chemical compositionOhiohealthEvaluation procedure OhiohealthHydroxyapatite [Energy Difference] in 24 hour UrineOhiohealthLaboratory data interpretationOhiohealthNewberyite/Total in [facility] HospitalPatient EducationKnow your MedCleveland Clinic Med[facility] Ctr Work Phone: Patient referralOhiohealth [facility] Work Phone: Specimen source subject [Type]OhiohealthTriamterene measurementOhiohealthTriple phosphate/Total in [facility] HospitalURINE CULTURE - [facility] URINE CULTURE - [facility] Lab Routine 02/04/2025 1:19 PM EDTNOMS Healthcare Immunizations Immunization DateImmunizationNotesCare ProviderFacilityNEGATED: Highlighted row has not occurred!76-10-1067wmcyviqwh virus vaccine, unspecified formulation [employer] [facility] Medical CenterGATED: Highlighted row has not occurred!13-68-8595VAQO-CoV-2 mRNA (tozinameran 5y-11y) vaccinePaAquaGenesis [facility] HospitalED: Highlighted row has not occurred!29-11-2531padwrvnla virus vaccine, live, attenuated, for intranasal useeCommHub [facility] HospitalED: Highlighted row has not occurred!38-71-7961fowkbsfos virus vaccine, live, attenuated, for intranasal useeCommHub [facility] Payers DatePayer CategoryPayerPolicy [id number] Health Insurance [id number] [id number] CONTINENTAL INS CO [employer] [id number] 2022-Present [address] [address] [place] [id number] 2002Medicare [id number] [id number] 2.16.840.3.801266.9[id number] 2.16.840.1.879210.3.579.[id number] 2.16840.1.415361.3.579.[id number] 2.16.840.1.353180.3.57[id number] 2.16.840.1.025947.3.579.2.10813-95-3967Vjhxrrm6434531 2.16.840.1.155795.3.579.2.80793-66-1538Opuseig3907839 2.16.840.1.402992.3.579.2.22562-38-7135Fqqifez3153067 2.16.840.1.847446.3.579.2.53569-44-2360Fwrcwmp1605735 2.16840.1.757167.3.579.2.31301-70-0717Poesrqm6012329 2.16.840.1.253665.3.579.2.08090-12-5750Gqecika6657082 2.16840.1.185735.3.579.2.33919-43-9125Djnuqul2415769 2.16.840.1.480967.3.579.2.24844-72-2702Ohiqidb4767948 2.16.840.1.254925.3.579.2.22080-86-4193Wpsfhmo8514645 2.16840.1.607938.3.579.2.50047-56-5094Mvupykc41493676 2.16.840.1.975081.3.579.2.15871-34-4715Alvmosa43683272 2.16840.1.480236.3.579.2.88761-12-9942Ppqrtlr44691234 2.16840.1.945404.3.579.2.62470-95-7693Xtftpvl81423066 2.16840.1.387955.3.579.2.[id number] 2.16840.1.583344.3.579.2.018172-33-2572Viputfo88561782 2.16840.1.811702.3.579.2.392774-93-8077Kxhdtyq42794020 2.16840.1.529332.3.579.2.590171-27-1179Qpmwynv11460669 2.16840.1.345947.3.579.2.622012-27-0041Iquimrt82781400 2.16840.1.720701.3.579.2.121248-11-5512Eznmsuv96627788 2.16840.1.523314.3.579.2.195421-16-2900Gfedzvj68850847 2.16840.1.376338.3.579.2.365894-90-5620Kangwdq43606832 2..840.1.351658.3.579.2.654704-88-3853Yozdywh8320855 2.16.840.1.235276.3.579.2.516692-64-0224Kezizpz5365623 2.16.840.1.530859.3.579.2.454001-20-5172Sueytnc1596793 2.16.840.1.648365.3.579.2.0275Fjqaxbp96117372 2.16.840.1.271145.3.579.2.531 Xrsyvrj10862969 2.16.840.1.709128.3.579.2.323Pnfbvre52174716 2.16.840.1.665376.3.579.2.838Udaewjt00350137 2.16.840.1.669416.3.579.2.531 Social History DateTypeDetailFacilitySex Assigned At [facility] [employer] Other Start: 02-03-2023 End: 52-88-2326Awudhqv smoking statusEx-smoker (finding)[facility]: 75-39-5587Utamcjo smoking statusNever [facility]: 12-11-2022 End: 89-66-9733Glh Assigned At [facility]: 24-19-3861Sck Assigned At [facility] End: 77-66-2767Htuqcmp of tobacco useCurrent smokerNOMS Healthcare End: 95-06-3228Mfguumn of tobacco useCigarette SmokerNOMS HealthcareStart: 08-07-2023 End: 17-40-0383Swolzje use and exposureSmokeless tobacco non-userNOMS Healthcare Start: 08-07-2023 End: 40-04-7191Fhoujni intakeEx-drinker (finding)[facility] HealthcareStart: 12-11-2022 End: 09-26-3730Rbebigf of Social functionNOMS HealthcareWithin the last year, [...] money to buy more.Never trueNOMS HealthcareStart: 01-24-2023 Mnhxsfhgj39HKIC HealthcareStart: 18-99-0716Cfsxqh identityIdentifies as female gender (finding)[facility] HealthcareDo you feel stress - tense, restless, nervous, or anxious, or unable to sleep at night because yourmind is troubled all the time - these days [OSQ]Not at allNOMS HealthcareSexFemale (finding)[facility] Goals DatePatient GoalDesired Activity/State Functional Status CxgdHsrkiggpldWumepwPqmekdhj28-51-9578Mdtvuye Health Questionnaire 2 item (PHQ- 2) [Reported][facility] HospitalLsquvfygis54-33-7712Oqzoygl Health Questionnaire 2 item (PHQ- 2) [Reported][facility] HospitalWykysrksgc76-63-5724Ampzdxm Health Questionnaire 2 item (PHQ- 2) [Reported][facility] HospitalTxfxngonos39-31-4418Pfofhgabpz StatusN/AExecutive [facility]rology of [facility]09-26-2024Total score [AUDIT-C]0 04/08/2024 6:36 PM EDT Mychart, GenericNOMS Jwseqqvxai12-30-9177Lod often do you have a drink containing alcohol?Never 04/08/2024 6:36 PM EDT Mychart, Generic NeverNOMS Sgxrjonfwd72-89-7558Giyallxyig statusPatient does not drink 04/08/2024 6:36 PM EDT Mychart, Generic Patient does not drinkNOSt. Louis Children's HospitalXzggcghuvf22-80-6226Weh often do you have 6 or more drinks on 1 occasion?Never 04/08/2024 6:36 PM EDT Nato Castelan Ipkawqvlep40-65-8318Kfbbkihkmk StatusN/AExec[facility]rology of [facility]01-31-2024Functional StatusN/AExec[facility] of [facility] Clinical Notes 02-21-2022 to 05-23-2025 Note Date & BrxrWzwhKpiteyys24-67-6312 History of Present illness Narrative* Jayme Perez MD - 05/23/2025 2:30 PM EST Images from the original note were not included. Patient ID: Wilda Sen is a 80 y.o. female who presents for: Diabetes Mellitus Patient presents for follow up of diabetes. Current symptoms include: none. Symptoms have stabilized. Patient denies increased appetite, paresthesia of the feet, and visual disturbances. Evaluation to date has included: hemoglobin A1C. Home sugars: patient does not check sugars. Arrhythmia Patient who presents for follow-up of atrial fibrillation. Symptoms include no new symptoms. Onset was several years ago, and have been stable since that time. The patient denies palpitations and rapid heart beat. Her tremors in her hands seem to be more severe. She also notes she is not sleeping well. Review of Systems Constitutional: Negative for activity change and fatigue. Respiratory: Negative for cough, shortness of breath and wheezing. Cardiovascular: Negative for chest pain, palpitations and leg swelling. Neurological: Negative for light-headedness and headaches. Objective The patient is pleasant and in no acute distress. The neck is supple and trachea is midline. No masses are appreciated. The heart is regular rate and rhythm without S3, S4. No murmur. The patient has normal respiratory pattern. The breath sounds are symmetrical without evidence of rhonchi or rales. No wheezing. The skin is warm and dry. The lower extremities have trace edema. The patient has good eye contact and speech is clear. Appropriate affect. She does not have resting tremor. She demonstrates intention tremor. She acknowledges it is a little bit worse but is not interfering with writing or eating. 05/23/2025 2:20 PM 01/06/2025 11:39 AM 12/22/2024 11:35 AM 11/04/2024 1:54 PM Vitals BMI 20.41 kg/m2 22.5 kg/m2 22.5 kg/m2 22.5 kg/m2 BSA (m2) 1.52 m2 1.6 m2 1.6 m2 1.6 m2 Systolic 122 Diastolic 76 Heart Rate 85 100 SpO2 99 % 99 % Height (in) 5' 3 5' 3 5' 3 5' 3 Weight (lb) 115.2 127 127 127 Visit Report Report Report Report Report GLYCOHEMOGLOBIN A1C 4.5 - 6.2 % 6.4 High 6.4 High CM 6.3 High CM 7.2 High CM Comment: ADA RECOMMENDED LIMIT 4.0 - 6.0 ADA THERAPEUTIC TARGET < 7.0 ACTION SUGGESTED Allergies Allergen Reactions Hydrocodone Bit-Homatrop Mbr Dizziness Ketorolac Nausea Only Other Reaction(s): Unknown Severe Latex Other Reaction(s): Blister Medical Adhesive Remover Other Reaction(s): facial edema, redness/metrogel Metronidazole Other Reaction(s): facial edema, redness/metrogel Pioglitazone Other Reaction(s): Unknown, Vomiting Sulfa Antibiotics Other Reaction(s): rash swelling Ciprofloxacin Other Reaction(s): bennett, Nsaids Other Reaction(s): Abdominal Pain, Unknown Current Outpatient Medications on File Prior to Visit Medication Sig Dispense Refill acarbose (Precose) 100 MG tablet Take 1 tablet (100 mg) by mouth in the morning and 1 tablet (100 mg) at noon and 1 tablet (100 mg) in the evening. Take with meals. 90 tablet 0 acetaminophen (Tylenol) 325 MG tablet Take 325 [...] the tongue 1 (one) time each day. docusate sodium (Colace) 100 MG capsule Take 100 mg by mouth in the morning and 100 mg before bedtime. esomeprazole (NexIUM) [address] capsule Take [...] the evening. Take with meals. 60 tablet 0 Methotrexate 12.5 MG/0.5ML solution prefilled syringe Inject 0.5 mL under the skin 1 (one) time perweek ondansetron ODT (Zofran-ODT) 4 MG disintegrating tablet Take 1 tablet (4 mg) by mouth every 8 (eight) hours if needed for nausea or vomiting for up to 10 days 30 tablet 0 oxybutynin (Ditropan) 5 MG tablet Take 5 mg by mouth as needed in the morning and 5 mg as needed atnoon and 5 mg as needed in the evening (bladder spasms). predniSONE (Deltasone) 5 MG tablet Take 2.5 mg by mouth Daily Spacer/Aero-Holding Chambers (BreatheRite Leonor Spacer Adult) misc 2 puffs 4 (four) times a day as needed (sob and cough) 1 each 0 warfarin (Coumadin) 4 MG tablet Take 1 tablet (4 mg) by mouth at bedtime 90 tablet 3 [DISCONTINUED] levoFLOXacin (Levaquin) 250 MG tablet TAKE 1 TABLET BY MOUTH DAILY FOR 10 DAYS 10 tablet 0 [DISCONTINUED] traZODone (Desyrel) 50 MG tablet Titrate nightly from 1/2 tablet up to 2 tablets by 1/2 tablet increments as tolerated 60 tablet 0 No current facility-administered medications on file prior to visit. 1. Type 2 diabetes mellitus with diabetic microalbuminuria, without long-term current use of insulin (HCC) Chronic problem, stable, to diabetic goal. Continue to monitor longitudinally. - Comprehensive metabolic panel; Future - Hemoglobin A1c; Future - Comprehensive metabolic panel - Hemoglobin A1c 2. Type 2 diabetes mellitus with stage 3a chronic kidney disease, without long- term current use of insulin (HCC) Chronic problem, stable, to goal as noted. In prescribing a renewal to their current medication, consideration of the following encompasses moderate decision making; the current prescriptions and supplements, the current allergies and medication intolerances, current medical conditions, and potential drug interactions. The patient was given a chance to ask questions today and all questions were answered. - acarbose (Precose) 100 MG tablet; Take 1 tablet (100 mg) by mouth 3 (three) times a day with meals Dispense: 270 tablet; Refill: 1 - metFORMIN (Glucophage) 1000 MG tablet; Take 1 tablet (1,000 mg) by mouth in the morning and 1 tablet (1,000 mg) in the evening. Take with meals. Dispense: 180 tablet; Refill: 1 - Comprehensive metabolic panel; Future - Lipid panel; Future - Comprehensive metabolic panel - Lipid panel 3. Stage 3a chronic kidney disease (CMS-HCC) Chronic problem. CMP re-evaluation as above. 4. Microalbuminuria Chronic problem, defining an aspect the [...] used for risk stratification for cardiovascular disease. 5. Paroxysmal atrial fibrillation (HCC) Chronic problem, stable, asymptomatic. 6. custodial current use of anticoagulant Chronic problem that is stable. Her recent INR is therapeutic and 1 can see the previous INRs for monitoring of this. Please Note: Portions of this chart may have been created using voice recognition software. Occasionally a wrong-word or sound-like substitutions may have occurred due to inherent limitations of the voice recognition software. Please read the chart carefully and recognize, using context, where the substitutions may have occurred. documented in this encounterBarnes-Jewish West County HospitalHhifuucjze00-87-7650 Telephone encounter Note* Telephone Encounter - October SAPPHIRE Harris - 02/08/2025 12:30 PM EDT Copied from VM from pt: Rafael, this is Jocelyn Sen, [phone]. I forgot to ask Dr. Persaud when I should start taking my warfare again and he's going to be off for a while, so I thought I'd better try and find out now. [phone], thank you. [facility] HospitalYbdnsltgtk10-96-4924 Telephone encounter Note* Telephone Encounter - Magalis Harris MA - 02/08/2025 12:29 PM EDT Copied from : [facility] calling concerning the prescriptions for Wilda Sen birthday [id number] have a prescription for Roberto F on [...] as well. Thank you so much by. [facility] HospitalSjhcippwmq77-87-7209 History of Present illness Narrative* Jayme Perez MD - 02/08/2025 10:30 AM EDT Images from the original note were not included. Patient ID: Wilda Sen is a 79 y.o. female who presents for: Hospital Follow up kidney stones Flowsheet Row Patient Outreach from 02/08/2025 in [facility] with Klaudia Terrell LPN Hospital Information ED, [...] Discharged To: Home Setting Discharge Hospital [facility] Engagement Admission Date 02/04/25 Medications Discharge medications [...] transition of care note is reviewed. a ezin-ue-zgvl evaluation is done today. Medical decision making is complex in degree. Please Note: Portions of this chart may have been created using voice recognition software. Occasionally a wrong-word or sound-like substitutions may have occurred due to inherent limitations of the voice recognition software. Please read the chart carefully and recognize, using context, where the substitutions may have occurred. documented in this encounterBarnes-Jewish West County HospitalNdqybiflmo22-89-6755 History of Present illness Narrative* Jayme Perez [...] 10 tablet; Refill: 0 documented in this encounterBarnes-Jewish West County HospitalUdxmzzfthi97-24-6822 History of Present illness Narrative* Jayme Perez [...] Paroxysmal atrial fibrillation (HCC) - Protime-INR 3. custodial current use of anticoagulant - Protime-INR 4. Medication monitoring encounter - Protime-INR documented in this encounterBarnes-Jewish West County HospitalUmduyltvdc74-29-1393 History of Present illness Narrative* Jayme Perez [...] INR in 2 weeks. 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 Hearing Screening: Not done Cognitive Screening Self Assessment: No concerns rasied by family members, friends, or caretakers Three Word Registration: River, Nation, Finger Clock Drawing: Normal Clock - 2 Three Word Recall: All 3 words correct - 3 Total Score (0-5 Points): 5 Pain Assessment Pain Score: 4 HISTORIES: PAST MEDICAL HISTORY: Past Medical History: Diagnosis Date Arthritis Basal cell carcinoma nose (2011), anabaptist left (2014) Basal cell carcinoma (BCC) of multiple sites 2014 face Calculus of kidney Chronic kidney disease, stage 2 (mild) Depressive disorder (CMS/HCC) not elsewhere classified Diabetes (CMS/HCC) Diabetes mellitus (CMS/HCC) Diabetes mellitus without mention of complication, type II or unspecified type, not stated as uncontrolled Diarrhea, unspecified Diverticulitis of colon (without mention of hemorrhage)(562.11) Duodenitis Esophageal reflux custodial (current) use of insulin (CMS/HCC) Melanoma of shoulder, right (CMS/HCC) 11/2014 going to Other psoriasis (CMS/HCC) Other specified malignant neoplasm of skin of other parts of face Personal history of renal calculi Personal history of skin cancer Psoriatic arthropathy (CMS/HCC) Renal calculus, right 02/2016 Dr. Jackson Situational depression (CMS/HCC) Type 2 diabetes mellitus without complications SURGICAL [...] 08/2019 [place] 10/2014 excision right posterior shoulder [place] REMOVAL OF LUNG 1987 pneumonectomy SCREENING MAMMOGRAM, [...] a livin g will, durable power of workers compensation defense attorney for healthcare, or other advanced directives. [...] without long- term current use ofinsulin (HCC) (CMS/HCC) Chronic problem, stable, currently asymptomatic and monitor longitudinally. 13. Type 2 diabetes mellitus with diabetic microalbuminuria, without long-term current use of insulin (CMS/HCC) Chronic problem, stable, currently asymptomatic and monitor longitudinally. 14. Immunosuppressed status (CMS/HCC) Chronic problem, stable, currently asymptomatic and monitor longitudinally. documented in this [facility]04-22-2025 History of Present illness Narrative* Jayme Perez MD - 11/02/2024 11:33 AM EDT Reviewed microalbuminuria test Updated problem list. documented in this [facility]04-19-2025 Evaluation note* Diagnosis Type 2 diabetes mellitus with stage 3a chronic kidney disease, without long-term current use of insulin (HCC) (CMS/HCC) Stage 3a chronic kidney disease (HCC) (CMS/HCC) Microalbuminuria Proteinuria Paroxysmal atrial fibrillation (CMS/HCC) Atrial fibrillation custodial current use of anticoagulant Encounter for Medicare annual wellness exam Advance directive discussed with patient Encounter for screening for other disorder Screening for alcohol problem Screening for alcoholism Screening mammogram, encounter for documented in this encounter [facility] Dnhcnrdcim10-60-0978 History of Present illness Narrative* Jayme Perez [...] long- term current use of insulin (HCC) ([facility]/HCC) Chronic problem, stable, to goal. As noted [...] 5MG Dispense: 90 tablet; Refill: 1 5. custodial current use of anticoagulant As above Chronic [...] of evaluation and management. documented in this encounterBarnes-Jewish West County HospitalGclwdfyrjc15-15-5024 Miscellaneous Notes* Telephone Encounter - October SAPPHIRE Harris - 02/08/2025 12:30 PM EDT Copied from from pt: Rafael, this is Jocelyn Sen, [phone]. I forgot to ask Dr. Persaud when I should start taking my warfare again and he's going to be off for a while, so I thought I'd better try and find out now. [phone], thank you. * Telephone Encounter - Magalis Harris MA - 02/08/2025 12:29 PM EDT Copied from : The [facility] pharmacy calling concerning the prescriptions for Wilda Sen birthday [id number] have a prescription for Roberto F on [...] you so much by. documented in this encounterBarnes-Jewish West County HospitalVasymgcmzz21-17-4145 Evaluation note* Diagnosis Type 2 diabetes mellitus with stage 3a chronic kidney disease, without long-term current use of insulin ([facility]) ([facility]) documented in this encounter [facility] HospitalYwikdhmxzz53-52-4208 History of Present illness Narrative* Felicia Thornton, - 08/04/2024 1:00 PM EST Images from the original note were not included. Assessment/Plan Diagnoses and all orders for this visit: Type 2 diabetes mellitus without complication, without long-term current use of insulin ([facility]) - Diabetes Mellitus without sign of [...] lid scrubs were recommended. documented in this encounterBarnes-Jewish West County HospitalEuvooktthf41-21-3159 Evaluation note* Diagnosis Glaucoma suspect of both eyes- Primary Unspecified preglaucoma Type 2 diabetes mellitus with stage 3a chronic kidney disease, without long-term current use of insulin ([facility]) ([facility]) Dry eyes Unspecified tear film insufficiency Blepharitis of upper and lower eyelids of both eyes, unspecified type documented in this encounter [id number] Hospital Discharge instructions Patient Education 07/12/2024 11:44:44 [...] include: ?8 oz (237 mL) of milk, thefwov-jxqeossximtq-tnxod milk, and calcium- fortifiedfruit juice. Calcium-fortified means [...] ?Spinach (cooked), rhubarb, beets, sweet potatoes, and Australian chard. ?Peanuts. ?Potato chips, bhutanese fries, and baked potatoes with skin on. ?Nuts and nut products. ?Chocolate. If you regularly take a diuretic medicine, make sure to eat at least 1 or 2 servings of fruits or vegetables that are high in potassium each day. These include: ?Avocado. ?Banana. ?[place], prune, carrot, or tomato juice. ?Baked potato. [...] magnesium, fish oil, or vitamin B6. Take kfpy-cxb-nerdeot and prescription medicines only as told by [...] Casseroles. Pizza. Lasagna. Frozen meals. Potato chips. Scottish fries. The items listed above may not [...] provider. Document Revised: 10/10/2022 Document Reviewed: 10/10/2022 [employer] Patient Education 2023 Crackle. Follow Up Care 02/03/2023 12:01:32 With:MANUEL AGUIAR, Eugenia Venegas, URL Address: [address] [place], [place] [phone]- When: Unknown [facility] [id number] NotePatient Education Nephrology Dietary Guidelines to Help [...] ? 8 oz (237 mL) of milk, tcwehum-rmcnsnvyhhmh-lizfj milk, and calcium- fortifiedfruit juice. Calcium-fortified means [...] Spinach (cooked), rhubarb, beets, sweet potatoes, and Australian chard. ? Peanuts. ? Potato chips, bhutanese fries, and baked potatoes with skin on. ? Nuts and nut products. ? Chocolate. ??? If you regularly take a diuretic medicine, make sure to eat at least 1 or 2 servings of fruits or vegetables that are high in potassium each day. These include: ? Avocado. ? Banana. ? [place], prune, carrot, or tomato juice. ? Baked [...] fish oil, or vitamin B6. ??? Take fwfn-qxe-ztuektw and prescription medicines only as told by your health (more content not included)...[facility]12-19-2024 Telephone encounter Note* Telephone Encounter - [...] to recheck her INR after the holiday. [facility] [id number] Miscellaneous Notes* Telephone Encounter - Jayme Perez [...] in about 2 weeks. documented in this encounterBarn[facility] HospitalVhoelcinhd88-74-7150 Telephone encounter Note* Telephone Encounter - Angeles Bonilla - 06/17/2024 9:11 AM EST Left voicemail to continue current dose and recheck in about 2 weeks [facility]Xprhbqgsim47-97-8495 Telephone encounter Note* Telephone Encounter - Jayme Perez MD - 06/17/2024 7:12 AM EST She is right on the border of the elevated. I would just continue the same dose and get rechecked it again in about 2 weeks. [facility] HospitalWutxetywrz83-85-0829 History of Present illness Narrative* Jayme Perez [...] problem, stable, comanaged with Cardiology. Asymptomatic. 2. 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 We discussed [...] 60 tablet; Refill: 0 documented in this encounterBarn[facility] HospitalMpbhxhsyzw38-84-1594 Hospital Discharge instructions Patient Education 10/14/2023 09:33:38 [...] include: ?8 oz (237 mL) of milk, eirnfck-mjyikidoosjl-ksniz milk, and calcium- fortifiedfruit juice. Calcium-fortified means [...] ?Spinach (cooked), rhubarb, beets, sweet potatoes, and Australian chard. ?Peanuts. ?Potato chips, bhutanese fries, and baked potatoes with skin on. ?Nuts and nut products. ?Chocolate. If you regularly take a diuretic medicine, make sure to eat at least 1 or 2 servings of fruits or vegetables that are high in potassium each day. These include: ?Avocado. ?Banana. ?[place]and, prune, carrot, or tomato juice. ?Baked potato. [...] magnesium, fish oil, or vitamin B6. Take abvz-lcu-phwzmeh and prescription medicines only as told by [...] Casseroles. Pizza. Lasagna. Frozen meals. Potato chips. Scottish fries. The items listed above may not [...] provider. Document Revised: 10/10/2022 Document Reviewed: 10/10/2022 [employer] Patient Education 2022 Crackle. Follow Up Care 08/13/2023 10:19:44 With:MANUEL AGUIAR, Eugenia Venegas, URL Address: [address] [place] [address]- When: Unknown [facility] [id number] Hospital Discharge instructions Patient Education 08/13/2023 11:34:50 [...] including vitamins, herbs, eye drops, creams, and rymm-ylh-gndytsn medicines. Any problems you or family members [...] provider tells you to take them. ?Taking thqa-eaw-mddiand medicines, vitamins, herbs, and supplements. Eating and [...] provider. Document Revised: 11/06/2022 Document Reviewed: 03/04/2022 [employer] Patient Education 2022 Crackle. Follow Up Care 08/12/2023 14:37:00 With:ANGELITO AGUIAR, Renato Arzola, URL Address: [facility] [address], [place] [phone] When: Unknown Comments:sched ureteroscopyf/u w/ [facility] scheduled 10/14/23 [facility] 01-25-2024 History of Present illness [...] 0.55 - 1.02 mg/dL Final [facility] EGFR-AF CONGOLESE 07/22/2023 >60 >=60 Final [facility] EGFR-NON AF [place]GOLESE 07/22/2023 55 (L) >=60 Final BUN CREATININE [...] treats. Stage 3a chronic kidney disease (HCC) ([facility]/HCC) New, Chronic problem, unstable, progressing, defining the [...] cardiovascular disease. 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 documented in this encounterBarn[facility] HospitalJfejhjvsfq10-66-4443 Evaluation note* Encounter Date Diagnosis Assessment Notes Treatment Notes Treatment Clinical Notes Jul, Contact with and (becerra spected) exposure to covid-19 (ICD-10 - Z20.822) Jul,4RSV infection (ICD-10 - B33.8) Advised patient that RSV PCR test was positive, COVID/Influenza A/B PCR test negative. Discussed diagnosis with patient in detail. Advised that this is a viral illness and antibiotics are not indicated. Discussed importance of adequate hydration and signs of respiratory distress in great detail. Supportive care as directed rx of steroid and Alpine, cool mist humidification. May use Tylenol as directed. Immediateeval for signs of respiratory distress, difficulty breathing poor PO intake, signs of dehydration, fever, or other concerning symptoms. Otherwise, follow up with PCP in 2-3 days. Patient verbalizes understanding and is agreeable to treatment plan. Patient sent home in stable condition. [employer] Other 08-11-2022 NotePROCEDURE: XR FOOT LT MIN 3 VIEWS COMPARISON: None. HISTORY: Pain in left foot FINDINGS: BONES:No acute fracture or dislocation. Mild enthesopathic spurring of the calcaneus. SOFT TISSUES:Negative. No visible soft tissue swelling. EFFUSION:None visible. OTHER: Negative. IMPRESSION: Mild enthesopathic spurring of the calcaneus Electronically authenticated by: BLANCA ZAVALA Date: 2022-02-21 07:28[facility] Future Appointments Appointment Date:07/12/2024 10:45:00 AM Scheduled Provider:Eugenia JACKSON MD [facility]O Office Visit [facility] Evaluation + Plan note Future Appointments Appointment Date:07/12/2024 10:45:00 AM Scheduled Provider:Eugenia JACKSON MD [facility] Type:URO Office Visit Diagnostic Tests Pending * Calculi Analysis Urinary 03/20/23 [facility] Future Appointments Appointment Date:10/14/2023 09:15:00 AM Scheduled Provider:Eugenia JACKSON MD [facility] Type:URO Office Visit Appointment Date:07/12/2024 10:45:00 AM Scheduled Provider:Eugenia JACKSON MD Location:[facility] Appointment Type:URO Office Visit [facility] Evaluzvzwa noteNort [employer] Other evaluttrmj noteNo assessment information available [facility] Work Phone: evaluation note* Diagnosis Chronic diastolic heart failure (CMS/HCC)- Primary Chronic diastolic heart failure Paroxysmal atrial fibrillation (CMS/HCC) Atrial fibrillation Type 2 diabetes mellitus with stage 3a chronic kidney disease, without long-term current use of insulin (HCC) (CMS/HCC) Stage 3a chronic kidney disease (HCC) (CMS/HCC) Microalbuminuria Proteinuria Former smoker Personal history of tobacco use, presenting hazards to health 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, adult 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 Psoriatic arthropathy ([facility]/HCC) Psoriatic arthropathy Gastroesophageal reflux disease without esophagitis Esophageal reflux [facility]* Diagnosis Paroxysmal atrial fibrillation (CMS/HCC)- Primary Atrial fibrillation 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 Type 2 [...] current use of insulin (HCC) ([facility]) documented in this encounter [facility]* Diagnosis Paroxysmal atrial fibrillation ([facility]) Atrial fibrillation documented in this encounter [facility] [...] 3a chronic kidney disease (HCC) ([facility]) Age-related osteoporosis without current pathological fracture ([facility]/HCC) Psoriatic arthropathy ([facility]/HCC) Psoriatic arthropathy Type 2 diabetes mellitus with stage 3a chronic kidney disease, without long-term current use of insulin (HCC) ([facility]) Type 2 diabetes mellitus with diabetic microalbuminuria, without long-term current use of insulin ([facility]) Immunosuppressed status ([facility]) documented in this encounter [facility]* Diagnosis Vertigo- Primary Dizziness and giddiness documented in this encounter [facility]* Diagnosis Vertigo- Primary Dizziness and giddiness documented in this encounter [facility]* Diagnosis Vertigo- Primary Dizziness and giddiness documented in this encounter [facility]* Diagnosis Vertigo- Primary Dizziness and giddiness Paroxysmal atrial fibrillation (HCC) Atrial fibrillation custodial current use of anticoagulant Medication monitoring encounter Encounter for therapeutic drug monitoring documented in this encounter [facility] HealthcareEvaluation note* Diagnosis Vertigo- Primary Dizziness and giddiness documented in this encounter [facility] HealthcareEvaluation note* Diagnosis Vertigo- Primary Dizziness and giddiness documented in this encounter [facility] HealthcareEvaluation note* Diagnosis Kidney stone on left side documented in this encounter [facility] HealthcareEvaluation note* Diagnosis Kidney stone on left side- Primary Hospital discharge follow-up Other follow-up examination documented in this encounter [facility] HealthcareEvaluation note* Diagnosis Type 2 diabetes mellitus with diabetic microalbuminuria, 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, without long-term current use of insulin (HCC) Stage 3a chronic kidney disease (CMS-HCC) Microalbuminuria Proteinuria Paroxysmal atrial fibrillation (HCC) Atrial fibrillation custodial current use of anticoagulant documented in this encounter [facility] general Narrative - ReportedNortVA hospital [employer] Other History general Narrative - Reported* Type Description Date Medical History Arthritis Medical Historydiabetes mallitusSurgical Historycataract surgery [facility] [employer] Other Hospital course Narrative No data available for this section [facility] Hospital Discharge instructions No data available for this section [facility] Discharge instructions Additional Instructions DISCHARGE INSTRUCTIONS [...] X- Ray) in about six months. [ ][facility] Work Phone: Progress note No data available for this section [facility] Reason for referral (narrative)No reason for referral information availableOhiohealth Southeastern [facility] Work Phone: Reason for visit Narrative* Rehabilitation - Outpatient (Routine) - AuthorizedSpecialtyDiagnoses / ProceduresReferred By ContactReferred To ContactPhysical Therapy Diagnoses Vertigo Procedures [facility] OFFICE/OUTPATIENT [facility] 60 MINUTES Jayme Perez MD [address] [place] [address] Phone: tel: fax: Joselyn Narvaez, PT Referral IDStatusReasonStart DateExpiration DateVisits RequestedVisits [id number] Specialty Services Required [facility] HealthcareReason for visit Narrative* Rehabilitation - Outpatient (Routine) - AuthorizedSpecialtyDiagnoses / ProceduresReferred By ContactReferred To ContactPhysical Therapy Diagnoses Vertigo Procedures UT OFFICE/OUTPATIENT [facility] 60 MINUTES Jayme Perez MD [address] [place] [address] [address] [place] [address] Phone: tel: fax:[phone] Joselyn Narvaez, PT Referral IDStatusReasonStart DateExpiration DateVisits RequestedVisits [id number] Specialty Services Required [facility] Summary Purpose Family History Relationship [...] and content) DATE CREATED AUTHOR 12/20/2022 [facility] DATE CREATED AUTHOR AUTHOR'S ORGANIZ ATION 02/24/2025 [facility] DATE CREATED AUTHOR AUTHOR'S ORGANIZ ATION 02/26/2025 [facility] DATE CREATED AUTHOR AUTHOR'S ORGANIZ ATION 05/24/2025 [facility] EPIC Patient Care team informatio n (unrecognized section and content) Team Status: Active Member Role Status Dates Jayme Perez MD Primary Care Provider Active Team Status: Inactive Member Role Status Dates Jayme Perez MD Primary Care Provider Active Eugenia Jackson MDAttending ProviderActiveTeam MemberRelationshipSpecialtyStart DateEnd Date Jayme Perez MD [address] [place] [phone] (Fax) [facility] - [facility]22 Jayme Perez MD [address] [place] [address] (Fax) PCP - [facility]12/05/22Team MemberRelationshipSpecialtyStart DateEnd Date Jayme Perez MD [address] [place] [phone] (Fax) PCP - [facility]11/25/22 Jayme Perez MD [address] [place] [address] (Fax) [facility]22 Team Status: Inactive Member Role Status Dates Jayme Perez MD Primary Care Provider Active Start: March 31, 2024 End: March 31, 2024MattAlia Owusu ProviderActiveStart: March 31, 2024 End: March 31, 2024Team MemberRelationshipSpecialtyStart DateEnd Date Jayme Perez MD [address] [place] [phone] (Fax) PCP - [facility]11/25/22 Jayme Perez MD [address] [place] [address] (Fax) PCP - [facility]12/05/22 Felicia Thornton DO [address] [place] [address] [place] [address] Referring PhysicianOphthalmology08/21/23 Renato Eaton MD [address] [phone] Referring PhysicianUrolog08/21/23 Radames Monteiro MD [address] [facility] Professional building [address] [place] [phone] Referring PhysicianRheumatolog08/21/23Team MemberRelationshipSpecialtyStart Date End Date Jayme Perez MD [address] [place] [address] (Fax) PCP - GeneralFamily Medicine11/25/22 Jayme Perez MD [address] [place] [address] (Fax) PCP - [facility]12/05/22 Felicia Thornton DO [address] [place] [address] Ave [address] [place] [address] Referring PhysicianOphthalmology08/21/23 Renato Eaton MD [address] [phone] Referring PhysicianUrolog08/21/23 Radames Monteiro MD [address] [facility] Professional building [address] [place] [address] [phone] Referring PhysicianRheumatolog08/21/23Team MemberRelationshipSpecialtyStart Date End Date Jayme Perez MD [address] [place] [address] (Fax) PCP - GeneralFamily Medicine11/25/22 Jayme Perez MD [address] [place] [address] (Fax) PCP - [facility]12/05/22 Felicia Thornton DO [address] [place] [address] Referring PhysicianOphthalmology08/21/23 Renato Eaton MD [address] [phone] Referring PhysicianUrolog08/21/23 Radames Monteiro MD [address] [facility] Professional building [address] [place] [address] [phone] Referring PhysicianRheumatolog08/21/23Team MemberRelationshipSpecialtyStart Date End Date Jayme Perez MD [address] [place] [address] (Fax) PCP - GeneralFamily Medicine11/25/22 Jayme Perez MD [address] [place] [address] (Fax) PCP - [facility]12/05/22 Felicia Thornton DO [address] [place] [address] Referring PhysicianOphthalmology08/21/23 Renato Eaton MD [address] [phone] Referring PhysicianUrology2 Radames Monteiro MD [address] [facility] Professional building [address] [place] [phone] Referring PhysicianRheumatolog08/21/23Team MemberRelationshipSpecialtyStart Date End Date Jayme Perez MD [address] [place] [address] (Fax) PCP - GeneralFamily Medicine11/25/22 Jayme Perez MD [address] [place] [address] (Fax) PCP - [facility]12/05/22 Felicia Thornton DO [address] [place] [address] Referring PhysicianOphthalmology08/21/23 Renato Eaton MD [address] [phone] Referring PhysicianUrolog08/21/23 Radames Monteiro MD [address] [facility] Professional building [address] [place] [address] [phone] Referring PhysicianRheumatolog08/21/23Team MemberRelationshipSpecialtyStart Date End Date Jayme Perez MD [address] [place] [address] (Fax) PCP - GeneralFamily Medicine11/25/22 Jayme Perez MD [address] [place] [address] (Fax) PCP - [facility]12/05/22 Felicia Thornton DO [address] [place] [address] Referring PhysicianOphthalmology08/21/23 Renato Eaton MD [address] [place] [address] Referring PhysicianUrolog08/21/23 Radames Monteiro MD [address] [facility] Professional [address] [phone] Referring PhysicianRheumatolog08/21/23Team MemberRelationshipSpecialtyStart Date End Date Jayme Perez MD [address] [place] [address] (Fax) PCP - GeneralFamily Medicine11/25/22 Jayme Perez MD [address] [place] [address] (Fax) PCP - [facility]12/05/22 Felicia Thornton DO [address] [place] [address] Referring PhysicianOphthalmology08/21/23 Renato Eaton MD [address] [place] [address] Referring PhysicianUrology2 Radames Monteiro MD [address] [facility] Professional building [address] [place] [address] Referring PhysicianRheumatolog08/21/23Team MemberRelationshipSpecialtyStart Date End Date Jayme Perez MD [address] [place] [address] (Fax) [facility]11/25/22 Jayme Perez MD [address] [place] [address] (Fax) PCP - [facility]12/05/22 Felicia Thornton DO [address] [place] [address] Referring PhysicianOphthalmology08/21/23 Renato Eaton MD [address] [phone] Referring PhysicianUrolog08/21/23 Radames Monteiro MD [address] [facility] Professional building [address] [place] [phone] Referring PhysicianRheumatology2Team MemberRelationshipSpecialtyStart Date End Date Jayme Perez MD [address] [place] [address] (Fax) [facility] Medicine11/25/22 Jayme Perez MD [address] [place] [address] (Fax) PCP - [facility]12/05/22 Felicia Thornton DO [address] [place] [address] Referring PhysicianOphthalmology08/21/23 Renato Eaton MD [address] [place] [address] Referring PhysicianUrolog08/21/23 Radames Monteiro MD [address] Professional building [address] [place] [address] Referring PhysicianRheumatolog08/21/23Team MemberRelationshipSpecialtyStart Date End Date Jayme Perez MD [address] [place] [address] (Fax) PCP - Generalmily [facility]11/25/22 Jayme Perez MD [address] [place] [address] (Fax) PCP - [facility]12/05/22 Felicia Thornton DO [address] [place] [address] Referring PhysicianOphthalmology08/21/23 Renato Eaton MD [address] [place] [address] Referring PhysicianUrolog08/21/23 Radames Monteiro MD [address] Professional building [address] [place] [phone] Referring PhysicianRheumatology2Team MemberRelationshipSpecialtyStart Date End Date Jayme Perez MD [address] [address] (Fax) PCP - GeneralFamily Medicine11/25/22 Jayme Perez MD [address] [address] (Fax) PCP - [facility]12/05/22 Felicia Thornton DO [address] [place] [address] Referring PhysicianOphthalmology08/21/23 Renato Eaton MD [address] [place], [place] [phone] Referring PhysicianUrolog08/21/23 Radames Monteiro MD [address] [facility] Professional building [address] [place] [phone] Referring PhysicianRheumatology2Team MemberRelationshipSpecialtyStart Date End Date Jayme Perez MD [address] [address] (Fax) PCP - Generalmily Medicine11/25/22 Jayme Perez MD [address] [address] (Fax) PCP - [facility]12/05/22 Felicia Thornton DO [address] [place] [address] Referring PhysicianOphthalmology08/21/23 Renato Eaton MD [address] [place] [address] Referring PhysicianUrolog08/21/23 Radames Monteiro MD [address] [place] [address] Referring PhysicianRheumatology2Team MemberRelationshipSpecialtyStart Date End Date Jayme Perez MD [address] [address] (Fax) PCP - GeneralFamily Medicine11/25/22 Jayme Perez MD 112 [facility] [address] [place] [address] (Fax) PCP - [facility]12/05/22 Felicia Thornton DO [address] [place], [place] [address] [address] [place] [address] Referring PhysicianOphthalmology08/21/23 Renato Eaton MD [address] [place] [address] Referring PhysicianUrology2 Radames Monteiro MD [address] [facility] [address] [place] [phone] Referring PhysicianRheumatology2Team MemberRelationshipSpecialtyStart Date End Date Jayme Perez MD [address] [place] [address] [address] [place] [address] (Fax) PCP - GeneralFamily Medicine11/25/22 Jayme Perez MD [address] [address] (Fax) PCP - [facility]12/05/22 Felicia Thornton DO [address] [place] [address] Referring PhysicianOphthalmology08/21/23 Renato Eaton MD [address] [place] [phone] Referring PhysicianUrolog08/21/23 Radames Monteiro MD [address] [facility] Professional building [address] [place] [phone] Referring PhysicianRheumatolog08/21/23Team MemberRelationshipSpecialtyStart Date End Date Jayme Perez MD [address] [address] (Fax) PCP - GeneralFamily Medicine11/25/22 Jayme Perez MD [address] [address] (Fax) PCP - [facility]12/05/22 Felicia Thornton DO [address] [place] [address] Referring PhysicianOphthalmology08/21/23 Renato Eaton MD [address] [place] [address] Referring PhysicianUrology2 Radames Monteiro MD [address] [facility] [facility] Professional building [address] [place] [address] Referring PhysicianRheumatology2Team MemberRelationshipSpecialtyStart Date End Date Jayme Perez MD 112 [facility] 100 [place] [address] (Fax) PCP - GeneralFamily Medicine11/25/22 Jayme Perez MD [address] [address] (Fax) PCP - ACO Reach12/05/22 Felicia Thornton DO [address] [place] [address] Ave [address] [place] [address] Referring PhysicianOphthalmology08/21/23 Renato Eaton MD [address] [place] [address] Referring PhysicianUrology2 Radames Monteiro MD [address] [facility] Professional building [address] [place] [phone] Referring PhysicianRheumatology2Team MemberRelationshipSpecialtyStart Date End Date Jayme Perez MD [address] [address] (Fax) PCP - GeneralFamily Medicine11/25/22 Jayme Perez MD [address] [address] (Fax) PCP - ACO Reach12/05/22 Felicia Thornton DO [address] [place] [address] Referring PhysicianOphthalmology08/21/23 Renato Eaton MD [address] [place] [address] Referring PhysicianUrolog08/21/23 Radames Monteiro MD [address] Professional [address] [place] [address] Referring PhysicianRheumatolog08/21/23Team MemberRelationshipSpecialtyStart Date End Date Jayme Perez MD 112 [facility] [address] [place] [address] (Fax) PCP - GeneralFamily Medicine11/25/22 Jayme Perez MD 112 [facility] 100 [place] [address] (Fax) PCP - ACO Reach12/05/22 Felicia Thornton DO [address] [place] [address] Referring PhysicianOphthalmology08/21/23 Renato Eaton MD [address] [place] [address] Referring PhysicianUrolog08/21/23 Radames Monteiro MD [address] Professional [address] [place] [address] Referring PhysicianRheumatology2Team MemberRelationshipSpecialtyStart Date End Date Jayme Perez MD [address] [place] [address] (Fax) PCP - GeneralFamily Medicine11/25/22 Jayme Perez MD [address] [place] [address] (Fax) PCP - ACO Reach12/05/22 Felicia Thornton DO [address] [place] [address] Referring PhysicianOphthalmology2 Renato Eaton MD [address] [place], [place] [phone] Referring PhysicianUrolog08/21/23 Radames Monteiro MD [address] [facility] Professional building [address] [place] [phone] Referring PhysicianRheumatology2Team MemberRelationshipSpecialtyStart Date End Date Jayme Perez MD [address] [place] [address] (Fax) PCP - GeneralFamily Medicine11/25/22 Jayme Perez MD [address] [place] [address] (Fax) PCP - ACO Reach12/05/22 Felicia Thornton DO [address] [place] [address] Referring PhysicianOphthalmology08/21/23 Renato Eaton MD [address] [place] [phone] Referring PhysicianUrology2 Radames Monteiro MD [address] [employer] Professional building [address] [place] [address] Referring PhysicianRheumatolog08/21/23Team MemberRelationshipSpecialtyStart Date End Date Jayme Perez MD [address] [place] [address] (Fax) PCP - GeneralFamily Medicine11/25/22 Jayme Perez MD 112 [facility] 100 [place] [address] (Fax) PCP - ACO Reach12/05/22 Felicia Thornton DO [address] [place] [address] Referring PhysicianOphthalmology08/21/23 Renato Eaton MD 290 [place] [address] Referring PhysicianUrolog08/21/23 Radames Monteiro MD [address] [facility] [address] [place] [phone] Referring PhysicianRheumatolog08/21/23Team MemberRelationshipSpecialtyStart Date End Date Jayme Perez MD [address] [place] [address] (Fax) PCP - GeneralFamily Medicine11/25/22 Jayme Perez MD [address] [place] [address] (Fax) PCP - ACO Reach12/05/22 Felicia Thornton DO [address] [place] [address] Referring PhysicianOphthalmology08/21/23 Renato Eaton MD [address] [place] [address] Referring PhysicianUrolog08/21/23 Radames Monteiro MD [address] [facility] Professional building [address] [place] [phone] Referring PhysicianRheumatolog08/21/23Team MemberRelationshipSpecialtyStart Date End Date Jayme Perez MD [address] [facility] 100 [place] [address] (Fax) PCP - GeneralFamily Medicine11/25/22 Jayme Perez MD [address] [place] [address] (Fax) PCP - ACO Reach12/05/22 Felicia Thornton DO [address] [place] [address] Referring PhysicianOphthalmology08/21/23 Renato Eaton MD 290 [place] [address] Referring PhysicianUrolog08/21/23 Radames Monteiro MD [address] [facility] Professional building [address] [place] [phone] Referring PhysicianRheumatolog08/21/23Team MemberRelationshipSpecialtyStart Date End Date Jayme Perez MD [address] [place] [address] (Fax) PCP - Generalmily Medicine11/25/22 Jayme Perez MD [address] [place] [address] (Fax) PCP - ACO [facility]12/05/22 Felicia Thornton DO [address] [place] [address] Referring PhysicianOphthalmology08/21/23 Renato Eaton MD 290 [place] [address] Referring PhysicianUrology2 Radames Monteiro MD [address] [facility] Professional building [address] [place] [phone] Referring PhysicianRheumatolog08/21/23 Team Status: Inactive Member Role Status Dates Lobito Tapia DO Attending Provider Active S tart: February 04, 2025 End: February 04, 2025Team MemberRelationshipSpecialtyStart DateEnd Date Jayme Perez MD [address] [place] [address] (Fax) PCP - GeneralFamily Medicine11/25/22 Jayme Perez MD [address] [place] [address] (Fax) PCP - ACO Reach12/05/22 Felicia Thornton DO [address] [place] [address] Referring PhysicianOphthalmology08/21/23 Renato Eaton MD [address] [place] [address] Referring PhysicianUrolog08/21/23 Radames Monteiro MD [address] [facility] Professional building [address] [place] [phone] Referring PhysicianRheumatolog08/21/23 Team Status: Inactive Member Role Status Dates Jayme Perez MD Primary Care Provider Active Start: February 11, 2025 End: February 11ZEN DavenportBCAttending ProviderActiveStart: February 11, 2025 End: February 11, 2025 Team Status: Inactive Member Role Status Dates Jayme Perez MD Primary Care Provider Active Start: February 14, 2025 End: February 14, 2025Alia Reyna ProviderActiveStart: February 14, 2025 End: February 14, 2025Team MemberRelationshipSpecialtyStart DateEnd Date Jayme Perez MD [address] [place] [address] (Fax) PCP - GeneralFamily Medicine11/25/22 Jayme Perez MD [address] [place] [address] PCP - ACO Reach12/05/22 Felicia Thornton DO [address] [place] [address] Referring PhysicianOphthalmology08/21/23 Renato Eaton MD [address] [place] [phone] Referring PhysicianUrolog08/21/23 Radames Monteiro MD [address] Professional [address] [place] [address] Referring PhysicianRheumatolog08/21/23Team MemberRelationshipSpecialtyStart Date End Date Jayme Perez MD [address] [place] [address] (Fax) PCP - GeneralFamily Medicine11/25/22 Jayme Perez MD [address] [place] [address] (Fax) PCP - ACO Reach12/05/22 Felicia Thornton DO [address] [place] [address] Referring PhysicianOphthalmology08/21/23 Renato Eaton MD [address] [place] [phone] Referring PhysicianUrolog08/21/23 Radames Monteiro MD [address] Professional [address] [place] [address] Referring PhysicianRheumatology2 Rebeca Emerson, RADIATION PROTECTION TECHNICIAN [address] [place] [address] Social Workermily Medicine03/04/25Team MemberRelationshipSpecialtyStart DateEnd Jayme Perez MD [address] [place] [address] (Fax) PCP - GeneralFamily Medicine11/25/22 Jayme Perez MD [address] [place] [address] (Fax) PCP - ACO Reach12/05/22 Felicia Thornton DO [address] [place], [place] [address] [address] [place] [address] Referring PhysicianOphthalmology2 Renato Eaton MD [address] [place] [address] Referring PhysicianUrolog08/21/23 Radames Monteiro MD [address] [facility] Professional building [address] [place] [phone] Referring PhysicianRheumatology2 Rebeca Emerson, DINA [address] [place] [address] Social WorkerHar[facility] Private Hospital MedicineTeam MemberRelationshipSpecialtyStart DateEnd Date Jayme Perez MD [address] [place] [address] (Fax) PCP - GeneralFamily Medicine11/25/22 Jayme Perez MD [address] [place] [address] (Fax) PCP - ACO Reach12/05/22 Felicia Thornton DO [address] [place] [address] Referring PhysicianOphthalmology08/21/23 Renato Eaton MD [address] [place] [address] Referring PhysicianUrolog08/21/23 Radames Monteiro MD [address] [facility] Professional building [address] [place] [phone] Referring PhysicianRheumatolog08/21/23 Rebeca Emerson, RADIATION PROTECTION TECHNICIAN [address] [place] [address] Social WorkerHar[facility] Private Hospital MedicineTeam MemberRelationshipSpecialtyStart DateEnd Date Jayme Perez MD [address] [place] [address] (Fax) PCP - GeneralFamily Medicine11/25/22 Jayme Perez MD [address] [place] [address] (Fax) PCP - ACO Reach12/05/22 Felicia Thornton, [address] [place] [address] Referring PhysicianOphthalmology08/21/23 Renato Eaton MD [address] [place] [phone] Referring PhysicianUrolog08/21/23 Radames Monteiro MD [address] [facility] [address] [place] [phone] Referring PhysicianRheumatolog08/21/23Team MemberRelationshipSpecialtyStart Date End Date Jayme Perez MD [address] [place] [address] (Fax) PCP - Generalmily Medicine11/25/22 Jayme Perez MD [address] [place] [address] (Fax) PCP - ACO [facility]12/05/22 Felicia Thornton DO [facility] [address] [place] [address] Referring PhysicianOphthalmology08/21/23 Renato Eaton MD [address] [place] [phone] Referring PhysicianUrolog08/21/23 Radames Monteiro MD [address] [facility] [address] [place] [phone] Referring PhysicianRheumatolog08/21/23Team MemberRelationshipSpecialtyStart Date End Date Jayme Perez MD [address] [place] [address] (Fax) PCP - GeneralFamily Medicine11/25/22 Jayme Perez MD [address] [place] [address] PCP - ACO Reach12/05/22 Felicia Thornton DO [address] [place] [address] Referring PhysicianOphthalmology08/21/23 Renato Eaton MD [address] [place] [address] Referring PhysicianUrolog08/21/23 Radames Monteiro MD [address] [facility] Professional building [address] [place] [phone] Referring PhysicianRheumatolog08/21/23 Goals (unrecognized section and content) Goals may [...] THE PRIMARY CLINICAL RECORDS. [facility] [employer] [facility]. provides no warranty or guarantee of the accuracy or completeness of information in this document.
[2025-05-30 10:13] LABS: Hematocrit 40.5 % (36.0-48.0); Hemoglobin 13.2 g/dL (12.0-16.0); Immature Granulocytes Abs Auto 0.03 10^3/uL (0.00-0.03); Immature Granulocytes Pct Auto 0.4 % (0.0-0.5); Lymphocytes Absolute Auto 2.3 10^3/uL (1.2-3.8); Mean Corpuscular HGB Conc 32.6 g/dL (29.9-35.2); Mean Corpuscular Hemoglobin 31.4 pg (26.7-34.0); Mean Corpuscular Volume 96.2 fL (81.0-99.0); Platelet Count 312 10^3/uL (150-450); Red Blood Count 4.21 10^6/uL (4.20-5.40); White Blood Count 7.4 10^3/uL (4.0-11.0)
[2025-05-30 10:30] LABS: Alanine Aminotransferase 23 U/L (14-59); Albumin Globulin Ratio 1.3; Albumin Level 4.1 g/dL (3.4-5.0); Alkaline Phosphatase 52 U/L (46-116); Anion Gap 11.5; Aspartate Amino Transferase 13 U/L (15-37); Blood Urea Nitrogen 13.0 mg/dL (7.0-18.0); Calcium 9.5 mg/dL (8.5-10.1); Carbon Dioxide 31.1 mmol/L (21.0-32.0); Chloride 104 mmol/L (98-107); Estimated GFR (African America >60 (>=60 mL/min/1.73m^2); Estimated GFR (Non-African Ame >60 (>=60 mL/min/1.73m^2); Globulin 3.2 g/dL; Glucose 133 mg/dL (74-106); Magnesium 1.9 mg/dL (1.8-2.4); Potassium 4.6 mmol/L (3.5-5.1); Sodium 142 mmol/L (136-145); Total Protein 7.3 g/dL (6.4-8.2)
== END 2025-05-30 09:42 | disposition home or self-care (01) ==
PROVIDERS: PCP Family Medicine; Visit Provider Internal Medicine Rheumatology
DX: L40.59 Other psoriatic arthropathy (principal); Z79.899 Other long term (current) drug therapy
CPT/HCPCS: 36415; 80053; 83735; 84100; 85025; 85652

== ENCOUNTER 2025-06-21 10:52 | Outpatient (OUT) | payer MEDICARE, SELFPAY ==
--- OUTSIDE RECORDS SUMMARY | 2025-06-21 11:00 | XMS_ITS | CCD ---
Author Organization [facility] Care Team Providers Care Partner Manager Name Role Phone Astrid Baker Unavailable [...] able MD Jayme Perez Primary Care Provider [phone] MD Eugenia Jackson Attending Provider Lou Glover Unavailable Jayme Perez MD Primary Care Provider Jayme Perez MD Unavailable MD Jayme Perez Primary Care Provider MD Radames Monteiro Attending Provider Felicia Thornton DO Unavailable Renato Eaton MD Unavailable Radames Monteiro MD Unavailable Jayme Perez MD Primary Care Provider Jayme Perez MD Unavailable Jayme Perez MD Primary Care Provider [phone] Jayme Perez MD Unavailable Lobito Tapia DO Attending Provider Jayme Perez MD Primary Care Provider [place] [facility] Attending Provider Eugenia Jackson MD Attending Provider [phone] Eugenia JACKSON Attending Unavailable Eugenia JACKSON Referring [...] Admitting Unavailable Eugenia Jackson Attending Unavailable Idania DITCHER, Rebeca Unavailable Angelito AGUIAR, Renato Arzola Unavailable Cayetano AGUIAR, Radames La Unavailable Idania DITCHER, Rebeca Unavailable FELICIA THORNTON Attending Unavailable HEMEYER, EDWARD J [...] of OnsetReaction(s) Facility (20 sources)Ciprofloxacin; Translations: [ciprofloxacin]Drug Jfgzzgm83-79-3307 anaphylaxis, Unknown (qualifier value)[facility] (1 source)sulfaSALAzineDrug AllergyJackson West Medical Center [email or web address] Other (1 source)CiprofloxacinDrug Ejksnco22-04-2035[facility] (2 sources)Ketorolac; Translations: [Toradol]Drug Yzlalam88-17-9778XelLima [facility] (2 sources)metroNIDAZOLE; Translations: [MetroGel]Drug Gukbdmy39-75-7590HzgLima [facility] Hospital Rep[facility] (1 source)NSAIDsDrug allergy (disorder)97-32-0735GpyL[facility] (2 sources)pioglitazone; Translations: [Actos]Drug Bkznapw49-73-4161AykLima [facility] Hospital [facility] (1 source)Sulfonamides (Antibiotic)Drug allergy (disorder)82-91-5176[facility] (16 sources)Ketorolac; Translations: [ketorolac]Drug Atxvpqu78-65-2036Ndmpczc (qualifier value), Nausea (finding)[facility] on above:Severe (20 sources)Latex; Translations: [Latex]Drug tmbioms68-41-5414Cqrbigb of skin AND/OR mucosa (finding)[facility] (20 sources)Non-steroidal anti-inflammatory agent; Translations: [NSAIDs]Drug cuobfic12-61-3027Ongdijv (qualifier value)[facility] (20 sources)pioglitazone; Translations: [pioglitazone]Drug Ovkkpbl72-44-1512 Unknown (qualifier value)[facility] (6 sources)Sulfonamides (Antibiotic); Translations: [sulfa drugs]Drug allergy Unknown (qualifier value)[facility] (20 sources)metroNIDAZOLE; Translations: [Metronidazole]Drug Hptkgen23-67-9590 [facility] (6 sources)Sulfonamides (Antibiotic); Translations: [Sulfa (Sulfonamide Antibiotics)]Allergy to xsjvkorwg20-60-8307CacoKcuvxhcxwUniversity [facility]als [facility] (6 sources)NSAIDS (Non-Steroidal Anti-Inflamma; Translations: [NSAIDS (Non- Steroidal Anti-Inflamma]Allergy to mllaxpkuy54-62-1006Iuemmkeczfd, Anaphylaxis, rashOhiohealth Grady [facility] Hospital (1 source)Non-steroidal anti-inflammatory agentDrug allergyrashNMather Hospital MoneyDesktop Other (20 sources)Substance with sulfonamide structure and antibacterial mechanism of action (substance)Drug qcetjqm48-73-0958wumsCouwd Coast MoneyDesktop Other (20 sources)KetorolacAllergy to shloosite06-21-8311Xtfpsu OnlySSM Health [facility] (20 sources)Hydrocodone Bit-Homatrop MbrPropensity to adverse reactions 61-58-4688ZmkadiwdsGNTW Healthcare (20 sources)Medical Adhesive RemoverDrug Vravpms97-09-7028ENJT [facility] (1 source)CiprofloxacinDrug Odupfai18-53-4432RucolaydxOhiohealth Grady [facility] Repository (1 source)KetorolacDrug Auszwdn43-40-3412EhspxwmrtOhiohealth Grady Memorial Hospital Repository (1 source)pioglitazoneDrug Gbpcfhf25-57-2336ErftyemldOhiohealth Grady Memorial Hospital Repository Medications Current Medications MedicationDrug Class(es)DatesSig (Normalized)Sig (Original)acarbose 100 mg oral tablet (20 sources)alpha-Glucosidase InhibitorStart: 04-18-2025 End: 87-38-4053gkmi 1 tablet by mouth three times daily at mealtimeacarbose (Precose) 100 MG tablet Indications: Type 2 diabetes mellitus with stage 3a chronic kidneydisease, without long-term current use of insulin (HCC) Take 1 tablet (100 mg) by mouth 3 (three) times a day with meals 270 tablet 1 05/23/2025 11/19/2025 ActiveStart: 08-17-2019 End: 76-25-1095yvfnobsk (Precose) 100 MG tablet Indications: Type 2 diabetes mellitus with stage 3a chronic kidneydisease, without long-term current use of insulin (HCC) Take 1 tablet (100 mg) by mouth in the morning and 1 tablet (100 mg) at noon and 1 tablet (100 mg) in the evening. Take with meals. 270 tablet 1 10/18/2024 04/16/2025 ActiveStart: 12-13-4806flogokvu Oral, TID, Refills(s) 0 Start Date: 08/17/19 Status: OrderedAcarbose Activeacetaminophen 325 mg oral tablet (20 sources)Start: 43-08-8086Yxyerqxmaaojj (Tylenol) 325 mg Tablet Active 1000 MG PO Twice daily March 26, 2023 12:00am Complies with drug therapyStart: 25-59-8597zulk 1 mg by mouth every six hoursTylenol [...] oral tablet (10 sources)Opioid AgonistStart: 08-12-2023 End: 60-73-1421etnm 1 tablet by mouth every six hoursPercocet 5 mg-325 mg oral tablet 1 tab(s), Oral, q6hr, Refill(s) 0 Start Date: 08/13/23 Status: Ordered [id number] 200 actuat albuterol 0.09 mg/actuat metered dose inhaler (20 sources)beta2-Adrenergic AgonistStart: 07-16-2023 End: 27-16-0429yuvcyfras HFA 90 mcg/act inhaler Indications: Chronic obstructive pulmonary disease with acute exacerbation (HCC) Inhale 2 puffs in the morning and 2 puffs at noon and 2 puffs in the evening and 2 puffs before bedtime. 18 g 07/16/2023 ActiveStart: 55-47-7368Bnfki: 02-63-5361sjiy 2 puff(s) by inhalation every four hours as neededAlbuterol Sulfate HFA 108 (90 Base) MCG/ACT 2 puffs as needed Inhalation every 4 hrs May, Not-Taking/PRNAscorbic Acid / Zinc Sulfate (4 sources)Vitamin CStart: 15-63-6401pfej 1 tablet by mouth once dailyAscorbic Acid-Zinc Sulfate (Vitamin C Plus Zinc) 200-100 mg Tablet Active 1 TAB PO every day at noon March 26, 2023 12:00am Complies with drug therapyStart: 61-34-2776qyus 1 tablet by mouth once dailyStart: 43-44-9572dona 1 tablet by mouth once dailyAscorbic Acid-Zinc Sulfate (Vitamin C Plus Zinc) 200-100 mg Tablet Active 1 TAB PO every day at noon March 26, 2023 12:00amaspirin 81 mg oral tablet (5 sources)Platelet Aggregation Inhibitor, Nonsteroidal Anti-inflammatory Drug Start: 21-82-3248mkpo 1 mg by mouth once dailyaspirin 81 mg oral tablet mg tab(s), Oral, Daily, Refills(s) 0 Start Date: 08/17/19 Status: Orderedcalcium citrate 950 mg oral tablet (20 sources)Start: 60-79-1591vwgt 1 tablet by mouth three times dailyCalcium Citrate 200 mg (950 mg) Tablet Active 200 MG PO Three times daily March 26, 2023 12:00am Complies with drug therapyStart: 94-92-1152oako 250 mg by mouth three times dailycalcium citrate 250 mg, Oral, TID, Refills(s) 0 Start Date: 08/17/19 Status: OrderedStart: 45-17-5897ypzvrra citrate Oral, BID, Refills(s) 0 Start Date: 08/17/19 Status: Orderedtake 1 tablet by mouth three times daily in the morningcalcium citrate 1040 MG tablet Take 250 mg by mouth in the morning and 250 mg in the evening and 250 mg before bedtime. 1 tablet orally three times a day. Activecephalexin 500 mg oral capsule (9 sources)Cephalosporin AntibacterialStart: 05-82-9830ypio 1 capsule by mouth twice dailyStart: 08-12-2023 End: 82-82-8812jzvl 1 capsule by mouth in the morning, then take 1 capsule by mouth in the evening, then take 1 capsule by mouth at bedtimecephalexin (Keflex) 500 MG capsule Take 500 mg by mouth in the morning and 500 mg in the evening and 500 mg before bedtime. 08/12/2023 04/15/2024 Discontinued (Therapy completed) cholecalciferol 0.125 mg oral tablet (5 sources)Vitamin DStart: 60-39-0347twbd 1 tablet by mouth once dailycinnamon bark 500 mg oral capsule (20 sources)Start: 03-72-8853rmwf 1 capsule by mouth twice dailyCinnamon Bark (Cinnamon) 500 mg Capsule Active 1000 MG PO Twice daily March 26, 2023 12:00am Complies with drug therapyCinnamon Preparation (5 sources)Non-Standardized Food Allergenic ExtractStart: 77-13-9367gdtu 1000 mg by mouth once dailycinnamon 1,000 mg, Oral, Daily Start Date: 09/19/20 Status: OrderedStart: 90-91-9237ymld 1 mg by mouth twice dailycinnamon mg, Oral, BID Start Date: 09/19/20 Status: OrderedCyanocobalamin-Liver Extract (Vitamin B12- Liver) Tablet (5 sources)Start: 10-08-7910mimq 1 tablet by mouth once dailyCyanocobalamin- Liver Extract (Vitamin L34-Gmhro) Tablet Active 1 TAB PO every day at noon 2022 12:00am Complies with drug therapyStart: 03-96-7701ekzb 1 tablet by mouth once dailyStart: 38-36-4474yocr 1 tablet by mouth once daily Cyanocobalamin-Liver Extract (Vitamin L67-Bdgfm) Tablet Active 1 TAB PO every day at no2022 12:00amStart: 39-77-7041mjxk 1 tablet by mouth once dailyCyanocobalamin-Liver Extract (Vitamin L35-Mmlgk) Tablet Active 1 TAB PO every day at no2022 11:00pmdextromethorphan hydrobromide 1.5 mg/ml / pyrilamine maleate 1.5 mg/ml oral solution (1 source)Uncompetitive H-dbsanj-T-aspartate Receptor Antagonist, Sigma-1 AgonistStart: 32-29-0413uhli 10 mL by mouth every eight hoursCapron [...] release oral tablet (20 sources)Proton Pump InhibitorStart: 71-28-5441ddea 1 tablet by mouth once dailyEsomeprazole Magnesium 20 mg Tablet,Delayed Release (Dr/Ec) Active 20 MG PO every day at March 26, 2023 12:00am Complies with drug therapyStart: 81-11-6560Ookgsf 20 mg, Oral, As Directed, Refills(s) 0 Start Date: 08/17/19 Status: OrderedStart: 97-25-9812Doqlgm Oral, Daily, Refills(s) 0 Start Date: 08/17/19 Status: Orderedtake 1 capsule by mouth once dailyesomeprazole (NexIUM) [address] capsule Take 20 mg by mouth 1 (one) time each day. 1 capsule orally once a day ActiveFerrous Bisglycinate Chelate 28 MG capsule (4 sources)Start: 11-04-2024 End: 60-50-3093zuqd 1 capsule by mouth at mealtimeFerrous Bisglycinate Chelate 28 MG capsule Indications: Iron deficiency Take 1 capsule by mouth in the evening. Take with meals 11/04/2024 12/04/2024 Activeferrous sulfate 134 mg oral tablet (5 sources)Start: 62-92-6607Wrsgyds Sulfate 27 mg iron Tablet Active 30 MG PO every Friday, , Friday, and Sunday March 26, 2023 12:00am Complies with drug therapyStart: 58-98-6760qrdx 30 mg by mouth onceFerrous Sulfate Active 30 MG PO every Friday, , Friday, and Sunday March 26, 2023 12:00am4 ml golimumab 12.5 mg/ml injection (20 sources)Tumor Necrosis Factor BlockerStart: 09-18-5690Ltkschfhw (Simponi Aria) 12.5 mg/mL Solution Active 12.5 MG IV EVERY 8 WEEKS March 26, 2023 12:00am may 13 Complies with drug therapyStart: 71-68-9440Kaywrqd Aria mg/kg, IV, q4wk, Refills(s) 0 Start Date: 08/20/19 Status: Orderedgolimumab (Simponi) 100 MG/ML solution auto-injector Inject 100 mg under the skin every 8 (eight) weeks ActiveInsulin Glargine (2 sources)Insulin AnalogLantus Activemeclizine hydrochloride 12.5 mg oral tablet (20 sources)AntiemeticStart: 12-22-2024 End: 01-53-5375bxll 0.5-1 tablets by mouth three times daily as needed for dizzinessmeclizine (Antivert) 12.5 MG tablet Indications: Vertigo Take 0.5-1 tablets (6.25-12.5 mg) by mouth3 (three) times a day as needed for dizziness for up to 20 days 60 tablet 12/22/2024 02/17/2025 Discontinued (Med list cleanup) metFORMIN hydrochloride 1000 mg oral tablet (20 sources)BiguanideStart: 04-18-2025 End: 96-82-6006oclj 1 tablet by mouth in the morningmetFORMIN (Glucophage) 1000 MG tablet Indications: Type 2 diabetes mellitus with stage 3a chronic kidney disease, without long-term current use of insulin (HCC) Take 1 tablet (1,000 mg) by mouth in the morning and 1 tablet (1,000 mg) in the evening. Take with meals. 180 tablet 1 05/23/2025 11/19/2025 ActiveStart: 08-17-2019 End: 01-14-9615hrxn 1 tablet by mouth in the morningmetFORMIN (Glucophage) 1000 MG tablet Indications: Type 2 diabetes mellitus with stage 3a chronic kidney disease, without long-term current use of insulin (HCC) Take 1 tablet (1,000 mg) by mouth in the morning and 1 tablet (1,000 mg) in the evening. Take with meals. 180 tablet 1 10/18/2024 04/16/2025 ActiveStart: 93-92-5089ldyxwitkv Oral, Refills(s) 0 Start Date: 08/17/19 Status: OrderedmetFORMIN HCl Activemethotrexate 2.5 mg/ml oral solution (20 sources)Folate Analog Metabolic InhibitorStart: 28-94-3388gtot 1.5 mg by mouth every weekMethotrexate 2.5 mg/mL Solution Active 1.5 MG PO every week March 26, 2023 12:00am Friday's Complies with drug therapyStart: 03-18-8023pvmh 1.5 mg by mouth every weekMethotrexate Active 1.5 MG PO every week March 26, 2023 12:00am Friday'sStart: 78-34-6782rvaa 5 mg by mouth every weekmethotrexate 5 mg, Oral, qWeek, Refills(s) 0 Start Date: 08/17/19 Status: OrderedStart: 20-78-7302zmfavyquuiir Refills(s) 0 Start Date: 08/17/19 Status: Orderedinject 0.5 mL by subcutaneous injection every weekMethotrexate 12.5 MG/0.5ML solution prefilled syringe Inject 0.5 mL under the skin 1 (one) time perweek ActiveMethotrexate Sodium ActiveMisc Medication (5 sources)Start: 76-80-8543Swvu Medication See Instructions, Oral Start Date: 09/19/20 Status: OrderedStart: 10-88-8654Uzef Medication ironchlate Start Date: 09/19/20 Status: OrderedMulti Vitamins oral tablet (5 sources)Start: 75-20-5846vosi 1 tablet by mouth once dailyMulti Vitamins oral tablet 1 tab(s), Oral, Daily, Refill(s) 0 Start Date: 09/19/20 Status: Ordered Start: 40-92-4408Nijcg Vitamins oral tablet Oral, Daily, Refill(s) 0 Start Date: 09/19/20 Status: Orderedondansetron 4 mg disintegrating oral tablet (20 sources)Serotonin-3 Receptor AntagonistStart: 02-08-2025 End: 59-06-8968slok 1 tablet by mouth every eight hours [...] Start Date: 08/13/23 Status: OrderedStart: 08-12-2023 End: 32-01-8827rehl 1 tablet by mouth every eight hours [...] oral capsule (5 sources)Opioid AgonistStart: 02-08-2025 End: 33-60-4525gygm 1 capsule by mouth every eight hoursoxyCODONE (Oxy-IR) 5 MG immediate release capsule Indications: Kidney stone on left side Take 1 capsule (5 mg) by mouth every 8 (eight) hours for 7 days 21 capsule 02/08/2025 02/15/2025 ActivepredniSONE 2.5 mg oral tablet (20 sources)Start: 32-52-6307dyif 1 tablet by mouth once daily at bedtime Prednisone 2.5 mg Tablet Active 2.5 MG PO Daily at bedtime March 26, 2023 12:00am Complies with drug therapyStart: 08-19-8109eyse 5 mg by mouth once daily predniSONE 5 mg, Oral, Daily, Refills(s) 0 Start Date: 08/17/19 Status: Ordered Start: 51-28-7534mhvnvlZNUT Oral, Daily, Refills(s) 0 Start Date: 08/17/19 Status: Orderedtake 2.5 mg by mouth once dailypredniSONE (Deltasone) 5 MG tablet Take 2.5 mg by mouth Daily ActivepredniSONE Not-Taking/PRNSpacer/Aero-Holding Chambers (BreatheRite Leonor Spacer Adult) misc (20 sources)Start: 60-43-3580Yrjksy/Aero-Holding Chambers (BreatheRite Leonor Spacer Adult) mis Indications: Chronic obstructive pulmonary disease with acute exacerbation (HCC) 2 puffs 4 (four) times a day as needed (sob and cough) 1 each 07/16/2023 ActiveStart: 70-94-1022Afxwqw/Aero-Holding Chambers (BreatheRite Leonor Spacer Adult) misc Indications: Chronic obstructive pulmonary disease with acute exacerbation (CMS/HCC) 2 puffs 4 (four) times a day as needed (sob and cough) 1 each 07/16/2023 ActiveStart: 87-32-5117Uzjcrz/Aero-Holding Chambers (BreatheRite Leonor Spacer Adult) misc Indications: Chronic obstructive pulmonary disease with acute exacerbation (CMS/HCC) 2 puffs 4 (four) times a day as needed (sob and c ough) 1 each 0 07/16/2023 Activespironolactone 25 mg oral tablet (9 sources)Aldosterone AntagonistStart: 01-06-2025 End: 92-50-8795dwyp 1 tablet by mouth once dailyspironolactone (Aldactone) 25 MG tablet Indications: Vertigo Take 1 tablet (25 mg) by mouth Daily for 10 days 10 tablet 01/06/2025 02/17/2025 Discontinued (Med list cleanup)tamsulosin hydrochloride 0.4 mg oral capsule (20 sources)alpha-Adrenergic BlockerStart: 08-13-2023 End: 94-64-0902gwxg 1 mg by mouth once dailytamsulosin 0.4 mg Cap mg cap(s), Oral, Daily, X 7 day(s), Refills(s) 0 Start Date: 08/13/23 Stop Date: 08/20/23 Status: OrderedStart: 08-12-2023 End: 44-62-0347abib 1 capsule by mouth every twenty-four hours in the morning tamsulosin (Flomax) 0.4 MG 24 hr capsule Take 0.4 mg by mouth in the morning. 08/12/2023 11/04/2024Discontinued (Med list cleanup)vitamin B12 (20 sources)Vitamin U87Yvcko: 63-65-8715upzb 3000 mg by mouth once dailyVitamin B12 3,000 mg, Oral, Daily, Refills(s) 0 Start Date: 08/17/19 Status: OrderedStart: 09-03-5455Phrsdxa B12 Refills(s) 0 Start Date: 08/17/19 Status: Orderedtake 1 tablet under the tongue once dailyCyanocobalamin (Vitamin B12) [address] 3,000 mcg under the tongue 1 (one) time each day. Active Vitamin D3 (5 sources)Start: 28-76-4215Pgzkyiz D3 1,000 unit(s), Daily, Refills(s) 0 Start Date: 08/17/19 Status: OrderedStart: 95-72-3634Mfxzejw D3 Daily, Refills(s) 0 Start Date: 08/17/19 Status: Orderedwarfarin sodium 4 mg oral tablet (20 sources)Vitamin K AntagonistStart: 05-09-2025 End: 02-41-3555hmop 1 tablet by mouth at bedtimewarfarin (Coumadin) 4 MG tablet Indications: Paroxysmal atrial fibrillation (HCC) Take 1 tablet (4 mg) by mouth at bedtime 90 tablet 3 05/09/2025 08/07/2025 ActiveStart: 69-56-2605vbbp 1 tablet by mouth at bedtimewarfarin (Coumadin) 4 MG tablet Indications: Paroxysmal atrial fibrillation (HCC) Take 1 tablet (4 mg) by mouth at bedtime 11/24/2024 ActiveStart: 08-18-2023 End: 58-86-4471fjjgewew (Coumadin) 2.5 MG tablet Indications: Paroxysmal atrial fibrillation (CMS/HCC) Take 1 tablet in the evening for a total of 3.5mg 90 tablet 1 08/18/2023 08/17/2024 ActiveStart: 08-18-2023 End: 07-28-6861shjp 1 tablet by mouth once daily in the eveningwarfarin (Coumadin) 1 MG tablet Indications: Paroxysmal atrial fibrillation (CMS/HCC) TAKE ONE TABLET BY MOUTH EVERY EVENING FOR A TOTAL OF 5MG 90 tablet 1 04/21/2024 07/01/2024 Discontinued (Dose adjustment)Start: 02-03-2023 End: 77-60-2745bkvf 3 mg by mouth once dailywarfarin 3 mg, Oral, Daily Start Date: 02/03/23 Status: OrderedStart: 59-73-3412vrnxasoz Oral, Daily Start Date: 02/03/23 Status: OrderedStart: 10-02-2022 End: 70-22-3085zeim 1 tablet by mouth once daily at bedtimeWarfarin 4 mg Tablet Active 4 MG PO Daily at bedtime March 26, 2023 12:00am Complies with drug therapyZinc Sulfate-Vitamin C (Vitamin C Plus Zinc) 200-100 mg Tablet (1 source)Start: 13-20-9692jsam 1 tablet by mouth once dailyZinc Sulfate-Vitamin C (Vitamin C Plus Zinc) 200-100 mg Tablet Active 1 TAB PO every day at noon [facility] 2022 11:00pm Completed/Discontinued Medications MedicationDrug Class(es)DatesSig (Normalized)Sig (Original)azithromycin 250 mg oral tablet (2 sources)Macrolide AntimicrobialStart: 55-40-5556Xtloqqmhqsvy 250 MG 2 tablets on the first day, then 1 tablet daily for 4 days Orally Once a day for 5 day(s) May, Not-Taking/PRNStart: 66-98-6372dbynDDQFcfsh 250 mg oral tablet (13 sources)Quinolone AntimicrobialStart: 02-08-2025 End: 77-98-6269dzjc 1 tablet by mouth once dailylevoFLOXacin (Levaquin) 250 MG tablet Indications: Kidney stone on left side TAKE 1 TABLET BY MOUTHDAILY FOR 10 DAYS 10 tablet 02/08/2025 05/23/2025 Discontinued (Therapy completed) methylPREDNISolone (3 sources)CorticosteroidStart: 07-25-2023 End: 25-17-9394cuhejaQMPBWMWaotgw (Medrol Dospak) 4 MG tabletsStart: 07-25-2023 methylPREDNISolone 4 MG as directed Orally for 6 12 Jul,4 ActivetraZODone hydrochloride 50 mg oral tablet (20 sources)Serotonin Reuptake InhibitorStart: 04-15-2024 End: 72-68-2911dsyMNJmik (Desyrel) 50 MG tablet Indications: Insomnia Titrate nightly from 1/2 tablet up to 2 tablets by 1/2 tablet increments as tolerated 60 tablet 04/15/2024 05/23/2025 Discontinued (Med list cleanup) Problems Active Problems Problem ClassificationProblemDateDocumented DateEpisodic/ChronicAbdominal pain (9 sources)Abdominal pain; Translations: [Unspecified abdominal pain]Onset: 042016-76-3068WmdeoypzRsauuilljvykkz/social admission (2 sources)Advance directive discussed with patient; Translations: [Other specified counseling]84-65-3653DphvagdoIxzhgth disorders (5 sources)Nsaqnal69-11-8335KpqpzooYaxfhych of urinary tract (18 sources)Kidney stone; Translations: [Calculus of kidney]Onset: 03-20-2023 EpisodicCancer of uterus (5 sources)History of malignant neoplasm of uterine htsk14-08-2210Zqkrghkq Cardiac dysrhythmias (20 sources)Paroxysmal atrial fibrillation; Translations: [Atrial fibrillation] Onset: 00-44-1112JsplzipRcuytmde (20 sources)Bilateral age-related nuclear cataracts; Translations: [Age-related nuclear cataract, bilateral]Onset: 05-19-2023 Resolved: 249074-71-1970OonygpqTdzomav kidney disease (20 sources)Chronic kidney disease stage 3A ; Translations: [Stage 3a chronic kidney disease (HCC) (CMS/HCC)]Onset: 359543-31-7776XirchsqPhghqyhvze associated with dizziness or vertigo (10 sources)Vertigo; Translations: [Dizziness and giddiness]79-05-2932Bctboyic Congestive heart failure; nonhypertensive (20 sources)Chronic diastolic (congestive) heart failure; Translations: [Chronic diastolic heart failure]Onset: 430928-80-7511UtannkaHbqsqjad mellitus with complications (20 sources)Type 2 diabetes mellitus with diabetic chronic kidney disease; Translations: [Type 2 diabetes mellitus]Onset: 03-75-3784UhjpdsiPhtocdnsqhxtbo and diverticulitis (20 sources)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; Translations: [Diverticulosis of large intestine without perforation or abscess without bleeding]Onset: 257857-62-4943NjgfaalUrvrzewezt disorders (20 sources)Gastroesophageal reflux disease without esophagitis; Translations: [Gastro-esophageal reflux disease without esophagitis]Onset: 12-12-2022 95-23-7181IdhnmkyThkzpdwypgpfv symptoms and ill-defined conditions (20 sources)Increased frequency of urination; Translations: [Nocturia]Onset: 859838-54-7746OphisnjvSwwzufys (20 sources)Preglaucoma, unspecified, bilateral; Translations: [Preglaucoma, unspecified]Onset: 896817-44-1327BbumwnuImsiq valve disorders (20 sources)Nonrheumatic aortic (valve) stenosis; Translations: [Aortic valve disorders]Onset: 857462-46-5168RthwpndEakdxskn disorders (20 sources)Immunosuppression; Translations: [Immunodeficiency, unspecified] Onset: 549706-70-0728KqidkfuNfzpoqk and fatigue (2 sources)Fatigue; Translations: [Chronic fatigue, unspecified]04-15-2024 ChronicMenopausal disorders (20 sources)Disorder associated with menstruation AND/OR menopause; Translations: [Menopausal and female climacteric states]Onset: 12-12-2022 35-14-6125MtrszjmEtmb disorders (5 sources)Depressive luaaazbn41-95-6521UobicwzFwizclrtapn deficiencies (20 sources)Vitamin D deficiency; Translations: [Vitamin D deficiency, unspecified]Onset: 945019-70-8507PtssirxGenbqgnaripi (20 sources)Osteoporosis; Translations: [Age-related osteoporosis without current pathological fracture]Onset: 671320-11-1325NlndwxqMryzb aftercare (1 source)[employer] customer [employer] (current) use of anticoagulants; Translations: [[facility] CURRNT USE ANTICOAGULANTS]Onset: 06-53-0254LakrypdpTrikh aftercare (5 sources)Encounter for therapeutic drug level monitoring; Translations: [ENC THERAPEUTC DRUG LEVL MONITORING]Onset: 85-42-5708MupigqdfLgqzm aftercare (1 source)Other snf (current) drug therapy; Translations: [OTH [facility] CURRENT DRUG THERAPY]Onset: 55-83-2661NwkumrhjTbaip aftercare (20 sources)Long-term current use of anticoagulant; Translations: [FCI (current) use of anticoagulants]Onset: 26-64-2364KrgelmsfSrndw aftercare (2 sources)Post-discharge follow-up; Translations: [Encounter for follow-up examination after completed treatment for conditions other than malignant neoplasm]24-44-6597RwacfqhzLqstp and ill-defined heart disease (4 sources)Cardiomegaly; Translations: [CARDIOMEGALY]Onset: 40-94-5748Ixuckky Other and ill-defined heart disease (20 sources)Ventricular hypertrophy ; Translations: [Cardiomegaly]Onset: 389414-87-1326RzhlttaHvchs diseases of kidney and ureters (2 sources)Urinary tract obstruction; Translations: [Hydronephrosis with renal and ureteral calculous obstruction]Onset: 67-57-9492AlisjsdoCjjtq diseases of kidney and ureters (1 source)Hydronephrosis with renal and ureteral calculous obstruction; Translations: [Hydronephrosis with renal and ureteral calculous obstruction] Onset: 03-33-7374WsfjtoisWtinz endocrine disorders (1 source)Disorder of adrenal gland; Translations: [Disorder of adrenal gland, unspecified]Onset: 61-14-4391SyclkadWvflr gastrointestinal disorders (1 source)Adrenal tfav27-38-7021AhzkqgsePopyo inflammatory condition of skin (5 sources)Other psoriatic arthropathy; Translations: [OTHER PSORIATIC ARTHROPATHY]Onset: 45-85-9335XovmcvnLqlbr inflammatory condition of skin (20 sources)Psoriatic arthritis; Translations: [Arthropathic psoriasis, unspecified]Onset: 226504-09-8207QhmhesrVyjqq nutritional; endocrine; and metabolic disorders (5 sources)Body mass index 25-29 - wljfvcvilo38-37-6645BmsppvqeUxwzo nutritional; endocrine; and metabolic disorders (2 sources)Unexplained weight loss ; Translations: [Abnormal weight loss] 72-46-2119SmjorwurCziuw screening for suspected conditions (not mental disorders or infectious disease) (6 sources)Patient encounter status; Translations: [Encounter for screening for other disorder]34-29-2473NuluyldeQwquvbvy codes; unclassified (2 sources)Sleep dysfunction with arousal disturbance; Translations: [Other sleep disorders]67-24-9545UcnuevsZxylbznh codes; unclassified (5 sources)H/O: anticoagulant afejzhb70-22-5767AavvofndIplioqohtxq; intervertebral disc disorders; other back problems (20 sources)Degeneration of lumbar intervertebral disc; Translations: [Other intervertebral disc degeneration, lumbar region]Onset: 141950-04-7132 ChronicUnclassified (5 sources)Drug therapy ejabdil78-46-3920Scfpeabyqnxj (3 sources)Obstructive ndiledwjgqqovr94-46-5300Fdddnsimdbdb (1 source) I did send a prescription [...] 1 diabetes mellitus without complication]Onset: 05-19-2023 Resolved: 755116-99-2298EkzzmmmYzfkw valve disorders (20 sources)Cardiac murmur, unspecified; Translations: [Heart murmur]Onset: 040776-85-5354ZdskztpwPvyfidspdypmk and screening for infectious disease (1 source)Contact with and (suspected) exposure to other viral communicable diseasesOnset: 05-21-2021 Resolved: 21-36-9087MtkkvmkqMszyxuboezgg; infection of eye (except that caused by tuberculosis or sexually transmitteddisease) (20 sources)Blepharitis of upper and lower eyelids of bilateral eyes; Translations: [Unspecified blepharitis right eye, upper and lower eyelids]Onset: 05-19-2023 Resolved: 646395-66-5281CxbbfcqiDjds disorders (20 sources)Mood disordersOnset: 05-22-2023 Resolved: 544372-80-6831Akjonwrtcjd deficiencies (20 sources)Iron deficiency; Translations: [Iron deficiency]Onset: 12-12-2022 62-68-5911AdiawcriOjekk aftercare (1 source)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; Translations: [QUARTER SEAMER USE ORAL HYPOGLYCEMIC DX]Onset: 56-56-9954OxstgjouQqaty aftercare (1 source)FCI (current) use of insulin; Translations: [QUARTER SEAMER CURRENT USE OF INSULIN]Onset: 75-55-4797EcmztxmoGzktv bone disease and musculoskeletal deformities (20 sources)Osteopenia; Translations: [Other specified disorders of bone density and structure, unspecified site]Onset: 610580-43-1693IhnzqmfbNltzl connective tissue disease (4 sources)Pain in left foot; Translations: [PAIN IN LEFT FOOT]Onset: 02-20-2022 EpisodicOther eye disorders (20 sources)Dry eyes; Translations: [Dry eye syndrome of bilateral lacrimal glands]Onset: 767834-53-8302ZqxoynqlSiars nutritional; endocrine; and metabolic disorders (20 sources)Overweight; Translations: [Overweight]Onset: 12-12-2022 Resolved: 648685-63-1875OxrdrlyuGxjyrjlcs (except that caused by tuberculosis or sexually transmitted disease) (1 source)Pneumonia, unspecified organismOnset: 05-21-2021 Resolved: 29-57-6274FljhmrryJdpejvfe codes; unclassified (20 sources)Body mass index 20-24 - normal; Translations: [Body mass index (BMI) 24.0-24.9, adult]Onset: 336059-36-9869WsyhhkfuEpylqjwe codes; unclassified (20 sources)Sleep disorder; Translations: [Sleep disorder, unspecified]Onset: 706180-46-2128YixtmrnwPboxluuwj and history of mental health and substance abuse codes (20 sources)Ex-smoker; Translations: [Personal history of nicotine dependence] Onset: 03-27-2017 Resolved: 325214-50-9503ZddhzjzvUjbyravmtcvx (1 source)Unclassified (1 source)Contact with and (suspected) exposure to covid-19 Z20.822Viral infection (1 source)COVID-19Onset: 05-21-2021 Resolved: 05-21-2021 Results Test NameValueInterpretationReference RangeFacilitySRNORTHEASTERN [facility] PROTHROMBIN TIME INR W/O COUMon 11-34-8901Zbqbtspbxaokay and review of laboratory resultsAbnormalNOMS HealthcarePT Coag (PPP) [Time]20.9 [facility] INR2.12NOMT HealthcareComment on above:DESIRED INR: 2.0-3.0 CONDITIONS NOT LISTED BELOW 2.5-3.5 FOR PROSTHETIC HEART VALVE REPLACEMENT 2.5-3.5 RECURRENT THROMBOSIS [facility]MAIM[facility] HealthcareMLR HEMOGLOBIN A1Con 18-42-1998Arqbjcg [Mass/Vol]137 mg/dLSSM Health Cardinal Glennon Children's HospitalHbA1c (Bld) [Mass fraction]6.4 %High4.5 - 6.2 %[facility] HealthcareComment on above:ADA RECOMMENDED LIMIT 4.0 - 6.0 ADA THERAPEUTIC TARGET < 7.0 ACTION SUGGESTED > 7.0 Interpretation and review of laboratory resultsAbnormalNOCarondelet HealthINISYNSalem Regional Medical Center PROTHROMBIN TIME INR W/O COUMon 98-92-8898Kgbcxpdwbpeegr and review of laboratory resultsAbnormksNOMS HealthcarePT Coag (PPP) [Time]19.6 [facility] INR1.98NOMT HealthcareComment on above:DESIRED INR: 2.0-3.0 CONDITIONS NOT LISTED BELOW 2.5-3.5 FOR PROSTHETIC HEART VALVE REPLACEMENT 2.5-3.5 [facility] PROT[facility] TIME INR W/O COUMon 03-08-2025 Interpretation and review of laboratory resultsAbnormksNOMS [facility] HospitalPT Coag (PPP) [Time]27.8 [facility] INR2.92NOMT HealthcareComment on above: DESIRED INR: 2.0-3.0 CONDITIONS NOT LISTED BELOW 2.5-3.5 FOR PROSTHETIC HEART VALVE REPLACEMENT 2.5-3.5 RECURRENT THROMBOSIS CLINISYNCNOMT HealthcareCapillary blood glucose measurement by glucometer (mass/volume)Ordered By: Eugenia Jackson on 96-66-5948Hleusdh [Mass/Vol]108 mg/dL [facility] DaytonComment on above:Random Glucose Reference Range is dependent [...] Point of Care testing ,Glucose Poct Glucometerson 08-43-5173Llbksub2Jsx9: Cleaned [facility] Physician GroupComment on above:Result Comment: PERFORMED BY: [place] [address] PATHOLOGIST WEALTH MANAGEMENT CONSULTANT IZABEL CHI M.D.Performed By: #### GLULS #### Point of Care testing ,INR in Platelet poor plasma by Coagulation assayOrdered By: BLANCA SIM on 57-35-5838DFA Coag (PPP) [Relative time]1.0 {INR}[facility] DaytonComment on above:INR Therapeutic Range A) Pre- and [...] - 4.5Performed By: #### PTT, PT #### [place] [address] [facility] 02-14-2025L Specimen: [id number] Received: 02/14/25 Status: JET Hurd Num: [id number] Spec Type: Surgical Subm Dr: Eugenia Jackson MD Tissues: A Gross Only (LEFT URETER STONE) Procedures: Level 1 Gross Age/ Patient Sex Location Account Attending Physician Wilda Sen 79/F [place] [id number] Eugenia Jackson MD SPEC NUM: [id number] RECD: 02/14/25 STATUS: JET HURD NUM: [id number] LEONOR: 02/14/25-[address]: Eugenia Jackson MD ENTERED: 02/14/25 [facility] DR: SPEC TYPE: Surgical DEPT: S ENTERED BY: [id number] RECV BY: [id number] ORDERED: Level 1 Gross ORDERED: Level 1 Gross Pathological Diagnosis Left ureteral stone, removal: - Fragments of calculus. Clinical Information Left kidney stones Gross Description Received fresh labeled with the patients name, date of , and left ureter stone are six escobedo-chaudhry, granular, 0.1 to 0.3 cm in greatest dimension calculi. The specimen is [facility] chemical analysis. GROSS ONLY- Microscopic Description Gross examination only. CPT Codes 64588 Specimen: [id number] Received: 02/14/25 Status: JET Hurd Num: [id number] Spec Type: Surgical Subm Dr: Eugenia Jackson MD Tissues: A Gross Only (LEFT URETER STONE) Procedures: Level 1 Gross Patient: Wilda Sen [id number] (Continued) Signed (signature on file) Mikel Quiros MD 02/15/25 1034Normal [facility] Physician GroupNo Panel InformationOrdered By: Eugenia Jackson on 69-19-0226Ihvsgzp Glucose CommentGlu2: cleaned meterOhiohealth Grady Memorial HospitalPartial Thromboplastin Timeon 52-98-5159nCOL Coag (Bld) [Time]26.6 sNormal 25.1-36.5[facility] Physician [facility] HospitalComment on above:Result Comment: A hematocrit value greater than 55% may lead to inaccurate results in coagulation testing. Patients having hematocrit values >55% require a special collection tube for coagulation studies. Please contact the laboratory at [phone] for redraw instructions. PERFORMED BY: [place] [address] PATHOLOGIST WEALTH MANAGEMENT CONSULTANT IZABEL CHI M.D.Performed By: #### PTT, PT #### [facility] [address] [place] [address] USAProthrombin time (PT)Ordered By: BLANCA SIM on 75-39-3186NZ Coag (PPP) [Time]11.6 sNormal9.0-12.9Ohiohealth Grady Memorial HospitalComment on above:A hematocrit value greater than 55% may lead to inaccurate results in coagulation testing. Patientshaving hematocrit values >55% require a special collection tube for coagulation studies. Please contact the laboratory at [phone] for redraw instructions.Result Comment: A hematocrit value greater than 55% may lead to inaccurate results in coagulation testing. Patients having hematocrit values >55% require a special collection tube for coagulation studies. Please contact the laboratory at [phone] for redraw instructions.Performed By: #### PTT, PT #### [address] [address] USAX-ray reportOrdered By: Kevan Zhou on 00-32-2554Mgjxe [facility] Main [address] [address] XRay Report Signed Patient: Wilda Sen MR#: [id number] : 1945 Acct:[id number] Age/Sex: 79 / F ADM Date: 5 Loc: [place] Room: Type: [facility] Attending Dr: Eugenia Jackson MD Copies to: [...] Jr., D.O. 02/14/2025 12:37 PM Dictation Location: [place] [address] Transcribed By: [facility] 02/14/25 1237 Dictated By: Kevan Zhou Jr, DO 02/14/25 1235 Signed By: 02/14/25 1237 [facility] HospitalXR KUBon 76-05-9011HI [facility] Main [address] [address] XRay Report Signed Patient: Wilda Sen MR#: [id number] 8 : 1945 Acct:[id number] Age/Sex: 79 / F ADM Date: 02/14/25 Loc: [place] Room: Type: [facility] Attending Dr: Eugenia Jackson MD Copies to: [...] Tavon Young MD 02/14/252099 Signed By: 02/14/252101[facility] GroupXR [facility] [place] [address] XRay Report Signed Patient: Wilda Sen MR#: [id number] 8 : 1945 Acct:[id number] Age/Sex: 79 / F ADM Date: 02/14/25 Loc: [place] Room: Type: [facility] Attending Dr: Eugenia Jackson MD Copies to: [...] Jr, DO 02/14/25 1235 Signed By: 02/14/25 1237[facility] Physician [facility]ee General HospitalaPTT in Platelet poor plasma by Coagulation assayOrdered By: BLANCA SIM on 95-39-3768yVVZ Coag (PPP) [Time] 26.6 s25.1-36.5FDetwiler Memorial HospitalComment on above:A hematocrit value greater than 55% may lead to inaccurate results in coagulation testing. Patientshaving hematocrit values >55% require a special collection tube for coagulation studies. Please contact the laboratory at [phone] for redraw instructions.ECG 12 lead ECGon 03-34-7966ERH 12 lead ECGKETTERING HEALTH BE[facility]IOR[facility] [place] [address] Electrocardiograph Report Signed Patient: Wilda Sen MR#: [id number] 8 : 1945 Acct:[id number] Age/Sex: 79 / F ADM Date: 02/11/25 Loc: Room: Type: [facility] Attending Dr: Kristie MCFARLAND Ordering Provider: BRUNA [...] axis shifted right Confirmed by Dez Chavez ([id number]) on 02/12/2025 3:51:55 PM Referred By: Electronically Signed By: Dez Chavez Transcribed By: MUS Signed By Dez Chavez MD 02/12/[address] [place] [address] Physician GroupUrine Cultureon 02-04-2025 Bacteria identified Cx Nom (U)ORGANISM: Enterobacter cloacae complex (O:ENTCLOCPLX) [place] Count 25,000 Aerobic KIKA Charge (NMIC56) SUSCEPTIBILITY [...] RESISTANT TO ALL B-LACTAM DRUGS. PERFORMED BY: [place] [address] PATHOLOGIST WEALTH MANAGEMENT CONSULTANT IAZBEL CHI M.D.NormalLarkin Community Hospital Physician GroupComment on above: Performed By: #### CUU #### [address] StreetUrine cultureOrdered By: Lobito Tapia on 02-04-2025 Bacteria identified Cx Nom (U)Enterobacter cloacae complexAbWadsworth-Rittman HospitalXR ABDOMEN 1Von 65-05-5054[place] [address] XRay Report Signed Patient: WILDA SEN MR#: [id number] : 1945 Acct:[id number] Age/Sex: 79 / F ADM Date: 02/02/25 Loc: RAD Attending Dr: Eugenia Jackson M.D. Ordering Physician: Eugenia Jackson M.D. Date of Service: 02/02/25 Procedure(s): XR abdomen 1V Accession Number(s): [id number] cc: Eugenia Jackson M.D.; JAYME PEREZ [address] [address] Patient Name: WILDA SEN MRN: [id number] date: 1945 Sex: F Assigned Patient Location: [facility] Current Patient Location: [facility] Accession/Order Number: [id number] Exam Date: 02/02/2025 10:29 Report Date: 02/02/2025 [...] Jr. DAlbinOAlbin 02/02/2025 10:30 AM Dictation Location: [place] [address] Electronically authenticated by: [id number] Y Date: 02/02/2025 10:30 Dictated By: Kevan Zhou M.D. Signed By: 02/02/25 1033 DD/ 1030 TD/TT: Business Planner:TBHRadiology, Radiologist, - 02/02/2025 [place] [address] XRay Report Signed Patient: WILDA SEN MR#: [id number] : 1945 Acct:[id number] Age/Sex: 79 / F ADM Date: 02/02/25 Loc: [facility] Attending Dr: Eugenia Jackson M.D. Ordering Physician: Eugenia Jackson M.D. Date of Service: 02/02/25 Procedure(s): XR abdomen 1V Accession Number(s): [id number] cc: Eugenia Jackson M.D.; JAYME PEREZ [address] [address] Patient Name: WILDA SEN MRN: [id number] date: 1945 Sex: F Assigned Patient Location: [facility] Current Patient Location: [facility] Accession/Order Number: [id number] Exam Date: 02/02/2025 10:29 Report Date: 02/02/2025 [...] Jr., D.O. 02/02/2025 10:30 AM Dictation Location: [place] [address] Electronically authenticated by: [id number] Y Date: 02/02/2025 10:30 Dictated By: Kevan Zhou M.D. Signed By: 02/02/25 1033 DD/ 1030 TD/TT: Business Planner: YESSI HealthcareRadiology Study observation (narrative)NOM HealthcareXR ABDOMEN 1VOrdered By: Radiologist Radiology on 32-80-2039BWZM Healthcare Work Phone: all CBC WITH AUTO DIFFon 39-17-8003VBHFCIBPX ABSOLUTE AUTO0.1NOMS HealthcareBasophils/100 WBC (Bld)0.7 %0.2 - 2.0 %[facility] Eosinophils/100 WBC (Bld)1.9 %0.9 - 7.0 %NOMS HealthcareErythrocyte distribution width (RBC) [Ratio]14.5 %11.0 - 15.0 %NOMS HealthcareHematocrit (Bld) [Volume fraction]37 %36.0 - 48.0 %NOMS HealthcareHemoglobin (Bld) [Mass/Vol]12 g/dL12.0 - 16.0 g/dLNOMT HealthcareIMMATURE GRANULOCYTES ABS AUTO0.03NOMS Healthcare Immature granulocytes/100 WBC (Bld)0.4 %0.0 - 0.5 %[facility] Children's HospitalInterpretation and review of laboratory resultsAbnormalSSM Health Cardinal Glennon Children's HospitalLYMPHOCYTES ABSOLUTE AUTO2.2NOMS [facility] HospitalLymphocytes/100 WBC (Bld)30.9 %20.5 - 60.0 %Christian HospitalH (RBC) [Entitic mass]31.3 pg26.7 - 34.0 pgChristian HospitalHC (RBC) [Mass/Vol]32.4 g/dL29.9 - 35.2 g/dLChristian HospitalV (RBC) [Entitic vol]96.4 fL 81.0 - 99.0 fLSSM Health Cardinal Glennon Children's HospitalMONOCYTES ABSOLUTE AUTO0.6NOSaint Louis [facility] Center Monocytes/100 WBC (Bld)8.3 %1.7 - 12.0 %[facility] Children's HospitalNEUTROPHILS ABSOLUTE AUTO 4.1NOMS [facility] HospitalNeutrophils/100 WBC (Bld)57.8 %43.0 - 75.0 %[facility] Platelet mean volume (Bld) [Entitic vol]8.9 fLLow9.5 - 13.5 fLSSM Health Cardinal Glennon Children's HospitalTB EO #0.1NOMS [facility] HospitalTB NEJ285ISWNFulton State Hospital RBC3.84LowNOFulton State Hospital DBE6AXRJSSM Health Cardinal Glennon Children's HospitalCLINISYNCNSaint [facility]'s [facility] BRAIN W AND WO CONTRAST (IACS)on 54-57-9805JR BRAIN W AND WO CONTRAST (IACS)HISTORY: Vertigo. Unsteady gait. TECHNIQUE: [facility] brain MRI protocol without and with [...] suspicious enhancement. ELECTRONICALLY SIGNED BY: Alessandra Preston [facility] PROTHROMBIN TIME INR W/O COUMon 13-24-0087Ctqvmtbqautwkd and review of laboratory resultsAbCorewell Health William Beaumont University HospitalPT Coag (PPP) [Time]21.7 [facility] INR2.22NOMT HealthcareComment on above:DESIRED INR: 2.0-3.0 CONDITIONS NOT LISTED BELOW 2.5-3.5 FOR PROSTHETIC HEART VALVE REPLACEMENT 2.5-3.5 RECURRENT THROMBOSIS [facility] PROTHROMBIN TIME INR W/O COUMon 12-08-2024 Interpretation and review of laboratory resultsAbCorewell Health William Beaumont University HospitalPT Coag (PPP) [Time]22.8 [facility] INR2.34NOMT HealthcareComment on above: DESIRED INR: 2.0-3.0 CONDITIONS NOT LISTED BELOW 2.5-3.5 FOR PROSTHETIC HEART VALVE REPLACEMENT 2.5-3.5 RECURRENT THROMBOSIS CLINSullivan [facility] Hospital CBC WITH AUTO DIFFon 48-08-8124CMXMOUYCB ABSOLUTE AUTO0.1NOMS HealthcareBasophils/100 WBC (Bld)0.9 %0.2 - 2.0 %[facility] Healthcare Eosinophils/100 WBC (Bld)5.6 %0.9 - 7.0 %[facility] Children's HospitalErythrocyte distribution width (RBC) [Ratio]14.6 %11.0 - 15.0 %[facility] HealthcareHematocrit (Bld) [Volume fraction]39.6 %36.0 - 48.0 %[facility] HealthcareHemoglobin (Bld) [Mass/Vol]12.7 g/dL 12.0 - 16.0 g/dLSSM Health Cardinal Glennon Children's HospitalIMMATURE GRANULOCYTES ABS AUTO0.02NOSaint Louis [facility] Immature granulocytes/100 WBC (Bld)0.4 %0.0 - 0.5 %[facility] Children's HospitalInterpretation and review of laboratory resultsAbnormalSSM Health Cardinal Glennon Children's HospitalLYMPHOCYTES ABSOLUTE AUTO1.8NOSaint Louis University Health Science CenterLymphocytes/100 WBC (Bld)32 %20.5 - 60.0 %[facility] MCH (RBC) [Entitic mass]31 pg26.7 - 34.0 pgNOSaint Louis University Health Science CenterMCHC (RBC) [Mass/Vol] 32.1 g/dL29.9 - 35.2 g/dLChristian HospitalV (RBC) [Entitic vol]96.6 fL81.0 - 99.0 fLSSM Health Cardinal Glennon Children's HospitalMONOCYTES ABSOLUTE AUTO0.6NOSaint Louis University Health Science CenterMonocytes/100 WBC (Bld)9.9 %1.7 - 12.0 %[facility]'s HospitalNEUTROPHILS ABSOLUTE AUTO2.9NOSaint Louis [facility] Neutrophils/100 WBC (Bld)51.2 %43.0 - 75.0 %[facility] Children's HospitalPlatelet mean volume (Bld) [Entitic vol]8.8 fLLow9.5 - 13.5 fLFreeman Health System EO #0.3NOFulton State Hospital KZN928DEWKFulton State Hospital RBC4.1LowNHCA Midwest Division WBC5.7NOSaint Louis University Health Science CenterCLNORTHWEST MEDICAL CENTERYNFormerly [facility] MICROALB CREAT RATIO RANDOMon 11-02-2024 CREATININE URINE MXZHTE284.56 mg/dL20.00 - 300.00 mg/dLSSM Health Cardinal [facility]'s Hospital Interpretation and review of laboratory resultsAbnoPhoenixville HospitalMICROALBUM CREATININE RATIO UR129.7 mg/gHigh0.0 - 29.9 mg/gNNorth Kansas City HospitalComment on above: NO MICROALBUMINURIA 0-29 MG/G CLINICAL MICROALBUMINURIA 30-300 MG/G MACROALBUMINURIA >300 MG/G MICROALBUMIN URINE NYVGFJ53.4 mg/dLNINF - 30.0 mg/dLSSM Health Cardinal Glennon Children's HospitalCLINISYNAshtabula County Medical CenterOH PROTHROMBIN TIME INR W/O COUMon 13-05-5569Irsddoptjfomgx and review of laboratory resultsAbnoPhoenixville HospitalPT Coag (PPP) [Time]28.7 s HighFreeman Health System INR3.02[facility] HealthcareComment on above:DESIRED INR: 2.0-3.0 CONDITIONS NOT LISTED BELOW 2.5-3.5 FOR PROSTHETIC HEART VALVE REPLACEMENT 2.5-3.5 RECURRENT THROMBOSIS CLINISYNCSSM Health Cardinal Glennon Children's HospitalALL CBC WITH AUTO DIFFon 62-74-8332UPATKFJCY ABSOLUTE AUTO0.1NOMS HealthcareBasophils/100 WBC (Bld)1 %0.2 - 2.0 %[facility] Eosinophils/100 WBC (Bld)3.7 %0.9 - 7.0 %[facility] Children's HospitalErythrocyte distribution width (RBC) [Ratio]14.4 %11.0 - 15.0 %[facility] Children's HospitalHematocrit (Bld) [Volume fraction]38.7 %36.0 - 48.0 %[facility] Children's HospitalHemoglobin (Bld) [Mass/Vol]12.4 g/dL 12.0 - 16.0 g/dLSSM Health Cardinal Glennon Children's HospitalIMMATURE GRANULOCYTES ABS AUTO0.02NOSaint Louis [facility] Center Immature granulocytes/100 WBC (Bld)0.3 %0.0 - 0.5 %[facility]'s HospitalInterpretation and review of laboratory resultsAbnormalSSM Health Cardinal Glennon Children's HospitalLYMPHOCYTES ABSOLUTE AUTO1.8NOMS [facility] HospitalLymphocytes/100 WBC (Bld)28.4 %20.5 - 60.0 %Christian HospitalH (RBC) [Entitic mass]30.9 pg26.7 - 34.0 pgChristian HospitalHC (RBC) [Mass/Vol]32 g/dL29.9 - 35.2 g/dLSSM Health Cardinal Glennon Children's HospitalMCV (RBC) [Entitic vol]96.5 fL 81.0 - 99.0 fLSSM Health Cardinal Glennon Children's HospitalMONOCYTES ABSOLUTE AUTO0.4NOSaint Louis [facility] Monocytes/100 WBC (Bld)5.9 %1.7 - 12.0 %[facility]'s HospitalNEUTROPHILS ABSOLUTE AUTO 3.8NOSaint Louis University Health Science CenterNeutrophils/100 WBC (Bld)60.7 %43.0 - 75.0 %[facility] Platelet mean volume (Bld) [Entitic vol]8.9 fLLow9.5 - 13.5 fLSSM Health Cardinal Glennon Children's HospitalTB EO #0.2NOMS HealthcareTB AUE303VOMS [facility] RBC4.01LowNOFulton State Hospital WBC6.3NOSaint Louis University Health Science CenterCLINISYNCNJefferson Memorial Hospital PROTHROMBIN TIME INR W/O COUMon 35-32-8124Qijvnkfjspigqi and review of laboratory resultsAbnoPhoenixville HospitalPT Coag (PPP) [Time]26.7 [facility] INR2.79NOMT HealthcareComment on above:DESIRED INR: 2.0-3.0 CONDITIONS NOT LISTED BELOW 2.5-3.5 FOR PROSTHETIC HEART VALVE REPLACEMENT 2.5-3.5 RECURRENT THROMBOSIS [facility] PROTHROMBIN TIME INR W/O COUMon 09-13-2024 Interpretation and review of laboratory resultsAbnoPhoenixville HospitalPT Coag (PPP) [Time]17.8 [facility] INR1.78NOMT HealthcareComment on above: DESIRED INR: 2.0-3.0 CONDITIONS NOT LISTED BELOW 2.5-3.5 FOR PROSTHETIC HEART VALVE REPLACEMENT 2.5-3.5 RECURRENT THROMBOSIS [facility] PROTHROMBIN TIME INR W/O COUMon 08-17-2024 Interpretation and review of laboratory resultsAbnoPhoenixville HospitalPT Coag (PPP) [Time]19.7 [facility] INR1.99NOMT HealthcareComment on above: DESIRED INR: 2.0-3.0 CONDITIONS NOT LISTED BELOW 2.5-3.5 FOR PROSTHETIC HEART VALVE REPLACEMENT 2.5-3.5 RECURRENT THROMBOSIS [facility] HospitalOphthalmic OCT panelon 41-90-8370KMSTSSM Health Cardinal Glennon Children's HospitalRig Eye Images reviewed and comparison made to baseline, Images reviewed. To assess optic nerve function and for use in future follow-up. Reliability: good and adequate. Left Eye Images reviewed and comparison made to baseline, Images reviewed. To assess optic nerve function and for use in future follow-up. Reliability: good and adequate. Notes Good nerve fiber layer (NFL) thickness both eyes (OU). Stable.[facility] HealthcareRadiology Study observation (narrative)[facility] PROTHROMBIN TIME INR W/O COUMon 03-39-9607Lnsidbmfxydnnb and review of laboratory resultsAbnoPhoenixville HospitalPT Coag (PPP) [Time]27 [facility] INR2.82NOMT HealthcareComment on above:DESIRED INR: 2.0-3.0 CONDITIONS NOT LISTED BELOW 2.5-3.5 FOR PROSTHETIC HEART VALVE REPLACEMENT 2.5-3.5 RECURRENT THROMBOSIS CLINISYNCNOMS HealthcareAmbulatory Visit Summaryon 15-00-1149Bchxzpkktn Visit SummaryAmbulatory Visit Summary WILDA SEN :1945 [...] with Eugenia JACKSON MD, URL When: Where: [address] [place] [address] [place] [address]- Medications What How Much When Instructions Unchanged [...] may be greater depending (more content not included)...[facility] 32-49-6836Ildomclha Reminders From: Julita Vu To: EU - [...] ) Other: PROVIDER RELATED REMINDER:_ ( ) Cardiology Teacher ( ) Call Pharmacy ( ) Call Lab ( ) Other: Special Instructions:_ Comments:_[facility] Behavioral HospitalindersReminder From: Jo-Ann Schaeffer To: EU - Administrative; Sent: 07/12/2024 11:46:18 EST Show up: 04/17/2026 11:46:00 EDT Subject: 2 YR AND KUB Due Date/Time: 07/03/2026 11:46:00 EST Reminder/Recall SCHEDULE IN 2 YRS AND KUB W/ DR [facility]eMiddletown HospitalUrology Office/Clinic Noteon 28-66-5054Tsoqgxq Office/Clinic NoteUrology Office/Clinic Note Chief Complaint 3 month F/U w KUB HPI Staff 18 mo with KUB due to kidney stones. KUB 07/05/24-[facility] *no uro meds Dysuria: denies Incomplete bladder [...] nodule. Not worrisome, stable. 3. Anticoagulated (Z79.01: intermodal customer service (current) use of anticoagulants) Warfarin for A-fib. [...] Eugenia Venegas, URL [address] [place] [address]- Additional Instructions: 18 mos with KUB Patient Education Dietary Guidelines to Help Prevent Kidney Stones I, Julita Vu, personally scribed for Dr. Jackson on 07/12/2024 11:45:03. . Portions of this record may have been created with voice recognition artificial intelligence software, specifically [employer], [employer] and or [employer]. Substitutions may have occurred due to the [...] Oral, TID aspirin 8 (more content not included)...[facility]iffin HospitalComment on above:Result Comment: Electronically Signed By: Eugenia JACKSON MD\.br\Date and Time Signed: 07/12/24 12:24 EST\.br\Electronically Co-Signed By: Julita Vu\.br\Date and Time Co-Signed: 07/12/24 11:46 ESTXR ABDOMEN 1Von 35-99-2147[place] [address] XRay Report Signed Patient: WILDA SEN MR#: [id number] : 1945 Acct:[id number] Age/Sex: 79 / F ADM Date: 07/05/24 Loc: RAD Attending Dr: Eugenia Jackson M.D. Ordering Physician: Eugenia Jackson M.D. Date of Service: 07/05/24 Procedure(s): XR abdomen 1V Accession Number(s): [id number] cc: Eugenia Jackson M.D.; JAYME PEREZ [place] [address] Patient Name: WILDA SEN MRN: [id number] date: 1945 Sex: F Assigned Patient Location: [facility] Current Patient Location: RAD Accession/Order Number: [id number] Exam Date: 07/05/2024 09:18 Report Date: 07/05/2024 [...] M.D. Signed By: 07/05/242321 DD/ 18 TD/TT: Business Planner:TBHRadiology, Radiologist, MD - 07/05/2024 [place] [address] XRay Report Signed Patient: WILDA SEN MR#: [id number] : 1945 Acct:[id number] Age/Sex: 79 / F ADM Date: 07/05/24 Loc: RAD Attending Dr: Eugenia Jackson M.D. Ordering Physician: Eugenia Jackson M.D. Date of Service: 07/05/24 Procedure(s): XR abdomen 1V Accession Number(s): [id number] cc: Eugenia Jacksno M.D.; JAYME PEREZ [place] [address] Patient Name: WILDA SEN MRN: [id number] date: 1945 Sex: F Assigned Patient Location: [facility] Current Patient Location: [facility] Accession/Order Number: [id number] Exam Date: 07/05/2024 09:18 Report Date: 07/05/2024 [...] M.D. Signed By: 07/05/242321 DD/ 18 TD/TT: Business Planner: YESSI HealthcareRadiology Study observation (narrative)NOM HealthcareXR ABDOMEN 1VOrdered By: Radiologist Radiology on 24-16-1008IATASSM Health Cardinal Glennon Children's Hospital Work Phone: srmcoh PROTHROMBIN TIME INR W/O COUMon 07-01-2024 Interpretation and review of laboratory resultsAbnormalNOSaint Louis University Health Science CenterPT Coag (PPP) [Time]30.3 sHighNOMS HealthcareTBH INR3.21NOMT HealthcareComment on above: DESIRED INR: 2.0-3.0 CONDITIONS NOT LISTED BELOW 2.5-3.5 FOR PROSTHETIC HEART VALVE REPLACEMENT 2.5-3.5 RECURRENT THROMBOSIS CLINISYNCNOMT HealthcareALL CBC WITH AUTO DIFFon 04-43-8958YMEDBBLLM ABSOLUTE AUTO0.1NOMS HealthcareBasophils/100 WBC (Bld)0.8 %0.2 - 2.0 %NOMPerry County Memorial Hospital Eosinophils/100 WBC (Bld)3.2 %0.9 - 7.0 %NOMPerry County Memorial HospitalErythrocyte distribution width (RBC) [Ratio]14.5 %11.0 - 15.0 %NOM HealthcareHematocrit (Bld) [Volume fraction]38.1 %36.0 - 48.0 %NOMPerry County Memorial HospitalHemoglobin (Bld) [Mass/Vol]12.3 g/dL 12.0 - 16.0 g/dLNOSaint Louis University Health Science CenterIMMATURE GRANULOCYTES ABS AUTO0.03NOSaint Louis [facility] Center Immature granulocytes/100 WBC (Bld)0.5 %0.0 - 0.5 %[facility] Children's HospitalInterpretation and review of laboratory resultsAbnormalNOSaint Louis University Health Science CenterLYMPHOCYTES ABSOLUTE YMBT3BETASaint Louis University Health Science CenterLymphocytes/100 WBC (Bld)30.8 %20.5 - 60.0 %NOMPerry County Memorial Hospital MCH (RBC) [Entitic mass]31.6 pg26.7 - 34.0 pgNOCooper County Memorial HospitalHC (RBC) [Mass/Vol]32.3 g/dL29.9 - 35.2 g/dLNOSaint Louis University Health Science CenterMCV (RBC) [Entitic vol]97.9 fL 81.0 - 99.0 fLNOMT HealthcareMONOCYTES ABSOLUTE AUTO0.5NOMS Healthcare Monocytes/100 WBC (Bld)7.7 %1.7 - 12.0 %NOMS HealthcareNEUTROPHILS ABSOLUTE AUTO 3.8NOMS HealthcareNeutrophils/100 WBC (Bld)57 %43.0 - 75.0 %NOMS Healthcare Platelet mean volume (Bld) [Entitic vol]8.9 fLLow9.5 - 13.5 fLNOSaint Louis University Health Science CenterTBH EO #0.2NOMS HealthcareTBH MSO431JCZH [facility] HospitalTB RBC3.89LowNOMS Ohio Valley HospitalTB WBC6.6NOMT HealthcareCLINISYNCNOMS HealthcareCT CHEST W CONTRASTon 60-38-0496KecSand[place], [place] [address] CT Scan Report Signed Patient: WILDA SEN MR#: [id number] : 1945 Acct:[id number] Age/Sex: 79 / F ADM Date: 05/14/24 Loc: CT Attending Dr: JAYME PEREZ Ordering Physician: JAYME PEREZ Date of Service: 05/14/24 Procedure(s): CT chest w con Accession Number(s): [id number] cc: JAYME PEREZ [place] [id number] Patient Name: WILDA SEN MRN: [id number] date: 1945 Sex: F Assigned Patient Location: CT Current Patient Location: Accession/Order Number: [id number] Exam Date: 05/14/2024 09:00 Report Date: 05/15/2024 [...] M.D. Signed By: 05/15/24725 DD/ 2 TD/TT: Business Planner:ESAHRadiologuche, Radiologist, - 05/15/2024 [place] [address] CT Scan Report Signed Patient: WILDA SEN MR#: [id number] : 1945 Acct:[id number] Age/Sex: 79 / F ADM Date: 05/14/24 Loc: CT Attending Dr: JAYME PEREZ Ordering Physician: JAYME PEREZ Date of Service: 05/14/24 Procedure(s): CT chest w con Accession Number(s): [id number] cc: JAYME PEREZ [place] [address] Patient Name: WILDA SEN MRN: [id number] date: 1945 Sex: F Assigned Patient Location: CT Current Patient Location: Accession/Order Number: [id number] Exam Date: 05/14/2024 09:00 Report Date: 05/15/2024 [...] KHOURY Date: 05/15/2024 07:23 Dictated By: Myrtle hKoury M.D. Signed By: 05/15/24725 DD/ 2 TD/TT: Business Planner: YESSI HealthcareRadiology Study observation (narrative)NOMS HealthcareCT CHEST W CONTRASTOrdered By: Radiologist Radiology on 92-47-5586SRBO Healthcare Work Phone: srN[facility]HE[facility] PROTHROMBIN TIME INR W/O COUMon 05-14-2024 Interpretation and review of laboratory resultsAbnormalNOMS HealthcarePT Coag (PPP) [Time]23 sHighNOMS HealthcareTBH INR2.36NOMT HealthcareComment on above: DESIRED INR: 2.0-3.0 CONDITIONS NOT LISTED BELOW 2.5-3.5 FOR PROSTHETIC HEART VALVE REPLACEMENT 2.5-3.5 RECURRENT THROMBOSIS CLINISYNCNOMS HealthcareCT ABDOMEN PELVIS W CONon 71-66-6450[address] [address] [address] Scan Report Signed Patient: WILDA SEN MR#: [id number] : 1945 Acct:[id number] Age/Sex: 79 / F ADM Date: 04/22/24 Loc: LAB Attending Dr: JAYME PEREZ Ordering Physician: JAYME PEREZ Date of Service: 04/22/24 Procedure(s): CT abdomen pelvis w con Accession Number(s): [id number] cc: JAYME PEREZ [address] [address] Patient Name: WILDA SEN MRN: [id number]:[id number] date: 1945 Sex: F Assigned Patient Location: LAB Current Patient Location: Accession/Order Number: [id number] Exam Date: 04/22/2024 12:40 Report Date: 04/23/2024 [...] M.D. Signed By: 04/23/24447 DD/ 4 TD/TT: Business Planner:ESAHRadiology, Radiologist, - 04/23/2024 [place] [address] CT Scan Report Signed Patient: WILDA SEN MR#: [id number] : 1945 Acct:[id number] Age/Sex: 79 / F ADM Date: 04/22/24 Loc: LAB Attending Dr: JAYME PEREZ Ordering Physician: JAYME PEREZ Date of Service: 04/22/24 Procedure(s): CT abdomen pelvis w con Accession Number(s): [id number] cc: JAYME PEREZ [place] [id number] Patient Name: WILDA SEN MRN: [id number] date: 1945 Sex: F Assigned Patient Location: LAB Current Patient Location: Accession/Order Number: [id number] Exam Date: 04/22/2024 12:40 Report Date: 04/23/2024 [...] M.D. Signed By: 04/23/24447 DD/ 4 TD/TT: Business Planner: [facility] HealthcareRadiology Study observation (narrative)[facility] Children's HospitalCT ABDOMEN PELVIS W CONOrdered By: Radiologist Radiology on 33-64-9965KTZRSSM Health Cardinal Glennon Children's Hospital Work Phone: TBH CREATININEon 72-69-4730Wlqiyysalz [Mass/Vol]0.84 mg/dL0.55 - 1.02 mg/dLNOMT HealthcareGFR/1.73 sq M.predicted CKD-EPI (S/P/Bld) [Vol rate/Area]>60>=60 mL/min/1.73m 2NOMS HealthcareTBH EGFR-NON AF RUSSIAN>60 >=60 mL/min/1.73m 2NOMS HealthcareCLINISYNCNOMS HealthcareALL CBC WITH AUTO DIFF on 30-87-2449ZKQHZDIVC ABSOLUTE AUTO0.0NOSaint Louis University Health Science CenterBasophils/100 WBC (Bld)0.6 %0.2 - 2.0 %NOMPerry County Memorial HospitalEosinophils/100 WBC (Bld)2.1 %0.9 - 7.0 %[facility] Children's HospitalErythrocyte distribution width (RBC) [Ratio]14.1 %11.0 - 15.0 %[facility] Children's HospitalHematocrit (Bld) [Volume fraction]41.8 %36.0 - 48.0 %[facility] Hemoglobin (Bld) [Mass/Vol]13.5 g/dL12.0 - 16.0 g/dLSSM Health Cardinal Glennon Children's HospitalIMMATURE GRANULOCYTES ABS AUTO0.02NOSaint Louis University Health Science CenterImmature granulocytes/100 WBC (Bld)0.3 % 0.0 - 0.5 %[facility] Children's HospitalInterpretation and review of laboratory results AbnormalNOSaint Louis University Health Science CenterLYMPHOCYTES ABSOLUTE AUTO2.1NOMS [facility] Lymphocytes/100 WBC (Bld)32.2 %20.5 - 60.0 %Christian HospitalH (RBC) [Entitic mass]31.0 pg26.7 - 34.0 pgChristian HospitalHC (RBC) [Mass/Vol]32.3 g/dL29.9 - 35.2 g/dLChristian HospitalV (RBC) [Entitic vol]95.9 fL81.0 - 99.0 fLSSM Health Cardinal Glennon Children's HospitalMONOCYTES ABSOLUTE AUTO0.5NOSaint Louis University Health Science CenterMonocytes/100 WBC (Bld)6.8 % 1.7 - 12.0 %[facility]'s HospitalNEUTROPHILS ABSOLUTE AUTO3.8NOSaint Louis University Health [facility] Center Neutrophils/100 WBC (Bld)58.0 %43.0 - 75.0 %[facility] Children's HospitalPlatelet mean volume (Bld) [Entitic vol]8.6 fLLow9.5 - 13.5 fLSSM Health Cardinal Glennon Children's HospitalTB EO #0.1NOMS [facility] HospitalTB [id number] [facility] RBC4.36NOFulton State Hospital WBC6.6NOSaint Louis University Health Science CenterCLINISYNAshtabula County Medical CenterOH PROTHROMBIN TIME INR W/O COUMon 51-29-2786Yyivzeasdwhrzm and review of laboratory resultsAbnormalSSM Health Cardinal Glennon Children's Hospital PT Coag (PPP) [Time]27.7 sHighNNorth Kansas City HospitalTBH INR2.90NOMS HealthcareComment on above:DESIRED INR: 2.0-3.0 CONDITIONS NOT LISTED BELOW 2.5-3.5 FOR PROSTHETIC HEART VALVE REPLACEMENT 2.5-3.5 RECURRENT THROMBOSIS CLINISYNCNOMS HealthcareMagnesium [Mass/volume] in Serum or PlasmaOrdered By: Radaems Monteiro on 15-61-9374Divyepqew [Mass/Vol]1.9 mg/dLNormal1.9-2.7FDetwiler Memorial HospitalComment on above:Result Comment: PERFORMED BY: [place] [address] PATHOLOGIST WEALTH MANAGEMENT CONSULTANT BERNIE GRAYSON M.D.Performed By: #### MG, PHOS #### [facility] [address] [place] [address] USAPhosphate [Mass/volume] in Serum or PlasmaOrdered By: Radames Monteiro on 39-20-0041Dkgmschwr [Mass/Vol]3.7 mg/dLNormal2.5-4.5FDetwiler Memorial HospitalComment on above:Performed By: #### MG, PHOS #### [facility] [address] [place] [address] USAALL CBC WITH AUTO DIFFon 70-57-4611BSHGHPXOX ABSOLUTE AUTO 0.0NOMS HealthcareBasophils/100 WBC (Bld)0.6 %0.2 - 2.0 %NOMS Healthcare Eosinophils/100 WBC (Bld)5.1 %0.9 - 7.0 %NOMS HealthcareErythrocyte distribution width (RBC) [Ratio]14.3 %11.0 - 15.0 %NOMS HealthcareHematocrit (Bld) [Volume fraction]41.5 %36.0 - 48.0 %NOMS HealthcareHemoglobin (Bld) [Mass/Vol]13.3 g/dL 12.0 - 16.0 g/dLNOMT HealthcareIMMATURE GRANULOCYTES ABS AUTO0.01NOMS Healthcare Immature granulocytes/100 WBC (Bld)0.1 %0.0 - 0.5 %NOMS HealthcareInterpretation and review of laboratory resultsAbnormalNOMS HealthcareLYMPHOCYTES ABSOLUTE AUTO2.9NOMS HealthcareLymphocytes/100 WBC (Bld)39.4 %20.5 - 60.0 %[facility] (RBC) [Entitic mass]30.9 pg26.7 - 34.0 pgChristian HospitalHC (RBC) [Mass/Vol]32.0 g/dL29.9 - 35.2 g/dLChristian HospitalV (RBC) [Entitic vol]96.5 fL 81.0 - 99.0 fLSSM Health Cardinal Glennon Children's HospitalMONOCYTES ABSOLUTE AUTO0.4[facility] Monocytes/100 WBC (Bld)6.1 %1.7 - 12.0 %[facility] Children's HospitalNEUTROPHILS ABSOLUTE AUTO 3.5NOSaint Louis University Health Science CenterNeutrophils/100 WBC (Bld)48.7 %43.0 - 75.0 %[facility] Platelet mean volume (Bld) [Entitic vol]8.7 fLLow9.5 - 13.5 fLSSM Health Cardinal Glennon Children's HospitalTB EO #0.4NOMS [facility] HospitalTB [id number] State Hospital RBC4.30NOFulton State Hospital WBC 7.2NOMS [facility] Valley HospitalCLINISYNAshtabula County Medical CenterOH PROTHROMBIN TIME INR W/O COUMon 96-57-0783Pyzjuxstnlqasm and review of laboratory resultsAbCorewell Health William [facility] PT Coag (PPP) [Time]28.2 sHigMcLeod Health Loris INR2.96NOSaint Louis University Health Science CenterComment on above:DESIRED INR: 2.0-3.0 CONDITIONS NOT LISTED BELOW 2.5-3.5 FOR PROSTHETIC HEART VALVE REPLACEMENT 2.5-3.5 RECURRENT THROMBOSIS CLINISYNCSSM Health Cardinal Glennon Children's HospitalXR DEXA AXIAL SKELETONon 47-67-7752Mvs[address] [address] XRay Report Signed Patient: WILDA SEN MR#: [id number] : 1945 Acct:[id number] Age/Sex: 78 / F ADM Date: 01/14/24 Loc: RAD Attending Dr: RADAMES MONTEIRO Ordering Physician: RADAMES MONTEIRO Date of Service: 01/14/24 Procedure(s): XR DEXA axial skeleton Accession Number(s): [id number] cc: JAYME PEREZ ; RADAMES MONTEIRO [place] [id number] Patient Name: WILDA SEN MRN: [id number] date: 1945 Sex: F Assigned Patient Location: [facility] Current Patient Location: [facility] Accession/Order Number: [id number] Exam Date: 01/14/2024 12:48 Report Date: 01/14/2024 [...] prevention and treatment of osteoporosis. Osteoporos Int. 2021;33(10):4496-0516. doi: 10.1007/i13577-028-87467-u. Epub 2021Nov 08. Erratum in: Osteoporos Int. 2021Feb 07;: PMID: [id number]; PMCID: [id number]. Electronically authenticated by: MYRTLE KHOURY Date: 01/14/2024 15:50 Dictated By: Myrtle Khoury M.D. Signed By: 01/14/24 1553 DD/ 1550 TD/TT: Business Planner:TBHRadiology, Radiologist, - 01/14/2024 [place] [address] XRay Report Signed Patient: WILDA SEN MR#: [id number] : 1945 Acct:[id number] Age/Sex: 78 / F ADM Date: 01/14/24 Loc: [facility] Attending Dr: RADAMES MONTEIRO Ordering Physician: RADAMES MONTEIRO Date of Service: 01/14/24 Procedure(s): XR DEXA axial skeleton Accession Number(s): [id number] cc: JAYME PEREZ ; RADAMES MONTEIRO [place] [id number] Patient Name: WILDA SEN MRN: [id number] date: 1945 Sex: F Assigned Patient Location: [facility] Current Patient Location: [facility] Accession/Order Number: [id number] Exam Date: 01/14/2024 12:48 Report Date: 01/14/2024 [...] prevention and treatment of osteoporosis. Osteoporos Int. 2021;33(10):4010-3524. doi: 10.1007/v25014-939-63306-c. Epub 2021Nov 08. Erratum in: Osteoporos Int. 2021Feb 07;: PMID: [id number]; PMCID: [id number]. Electronically authenticated by: MYRTLE KHOURY Date: 01/14/2024 15:50 Dictated By: Myrtle Khoury M.D. Signed By: 01/14/24 155 DD/ 155 TD/TT: Business Planner: [facility] HealthcareRadiology Study observation (narrative)NOM HealthcareXR DEXA AXIAL SKELETONOrdered By: Radiologist Radiology on 55-29-4579GPZO Healthcare Work Phone: XR ABDOMEN 1Von 81-11-2386VdpSand[place] [address] XRay Report Signed Patient: WILDA SEN MR#: [id number] : 1945 Acct:[id number] Age/Sex: 78 / F ADM Date: 10/08/23 Loc: RAD Attending Dr: Eugenia Jackson M.D. Ordering Physician: Eugenia Jackson M.D. Date of Service: 10/08/23 Procedure(s): XR abdomen 1V Accession Number(s): [id number] cc: Eugenia Jackson M.D.; JAYME PEREZ [place] [phone] Patient Name: WILDA SEN MRN: [id number] date: 1945 Sex: F Assigned Patient Location: [facility] Current Patient Location: Accession/Order Number: [id number] Exam Date: 10/08/2023 10:37 Report Date: 10/09/2023 [...] M.D. Signed By: 10/09/23624 DD/ 1 TD/TT: Business Planner:TBHRadiology, Radiologist, - 10/09/2023 [place] [address] XRay Report Signed Patient: WILDA SEN MR#: [id number] : 1945 Acct:[id number] Age/Sex: 78 / F ADM Date: 10/08/23 Loc: [facility] Attending Dr: Eugenia Jackson M.D. Ordering Physician: Eugenia Jackson M.D. Date of Service: 10/08/23 Procedure(s): XR abdomen 1V Accession Number(s): [id number] cc: Eugenia Jackson M.D.; JAYME PEREZ [place] [address] Patient Name: WILDA SEN MRN: [id number] date: 1945 Sex: F Assigned Patient Location: [facility] Current Patient Location: Accession/Order Number: [id number] Exam Date: 10/08/2023 10:37 Report Date: 10/09/2023 [...] M.D. Signed By: 10/09/23624 DD/ 1 TD/TT: Business Planner: YESSI HealthcareRadiology Study observation (narrative)NOM HealthcareXR ABDOMEN 1VOrdered By: Radiologist Radiology on 59-36-1359WGAWSSM Health Cardinal Glennon Children's Hospital Work Phone: all BUNon 35-30-8646Vvxv nitrogen [Mass/Vol]12.0 mg/dL 7.0 - 18.0 mg/dLNOMT HealthcareALL CARBON DIOXIDEon 58-72-7233DR0 [Moles/Vol] 30.1 mmol/L21.0 - 32.0 mmol/LNOMS HealthcareALL CHLORIDEon 48-42-7584Jupiabka [Moles/Vol]104 mmol/L98 - 107 mmol/LNOMS HealthcareALL PHOSPHOROUSon 08-20-2023 Phosphate [Mass/Vol]4.1 mg/dL2.6 - 4.7 mg/dLNOMT HealthcareALL SODIUMon 49-32-0747Myezti [Moles/Vol]141 mmol/L136 - 145 mmol/LNOMS HealthcareALL URIC ACIDon 56-07-6735Wjzri [Mass/Vol]4.4 mg/dL2.6 - 6.0 mg/dLSSM Health Cardinal Glennon Children's HospitalCCF CALCIUMon 82-44-7644Ehdmhvq [Mass/Vol]9.1 mg/dL8.5 - 10.1 mg/dLSSM Health Cardinal Glennon Children's HospitalNo Panel Informationon 33-06-3195QNTUPUYKZAUCC HealthcareTB CREATININEon 25-92-8519Frxvpgrvpw [Mass/Vol]0.86 mg/dL0.55 - 1.02 mg/dLSSM Health Cardinal [facility]'s Hospital GFR/1.73 sq M.predicted CKD-EPI (S/P/Bld) [Vol rate/Area]>6060 - [facility] SystemTB EGFR-NON AF RUSSIAN>6060 - [facility] SystemCOVID/FLU/RSV RT-PCRon 33-51-2534UPEL-CoV-2 (COVID-19) RNA TREASURE+probe Ql (Unsp spec)Negative [employer] Other COVID/FLU/RSV RT-PCRNegativeNoKindred Healthcare [employer] Other COVID/FLU/RSV RT-PCRPositivePeacehealth [employer] Other Activated partial thromboplastin time (aPTT) in platelet poor plasma by coagulation aOrdered By: Eugenia Jackson on 53-28-2617sEYD Coag (PPP) [Time]35.9 s25.1-36.5FDetwiler Memorial HospitalComment on above:A hematocrit value greater than 55% may lead to inaccurate results in coagulation testing. Patientshaving hematocrit values >55% require a special collection tube for coagulation studies. Please contact the laboratory at [phone] for redraw instructions.Basophils Auto (Bld) [#/Vol]Ordered By: Eugenia Jackson on 46-93-5772Dcsqscodu (Bld) [#/Vol]0.0 10*3/uL0.0-0.2FDetwiler Memorial HospitalBasophils/100 WBC Auto (Bld)Ordered By: Eugenia Jackson on 33-56-2349Ddhlyilau/100 WBC (Bld)0.8 %.[facility]ady Memorial HospitalCalcium [Mass/volume] in Serum or PlasmaOrdered By: Eugenia Jackson on 47-15-8934Mokmfsr [Mass/Vol]10.0 mg/dL8.6-10.3FDetwiler Memorial HospitalCarbon dioxide, total [Moles/volume] in Serum or PlasmaOrdered By: Eugenia Jackson on 71-32-1453JL3 [Moles/Vol]30.0 mmol/L21.0-31.0Ohio[facility] Grady Memorial HospitalChloride [Moles/volume] in Serum or PlasmaOrdered By: Eugenia Jackson on 02-44-2047Aitxjibh [Moles/Vol]104 mmol/U00-124QumksbaqyOhiohealth Grady Memorial HospitalCreatinine [Mass/volume] in Serum or PlasmaOrdered By: Eugenia Jackson on 43-76-9746Xpxrrfoayw [Mass/Vol]0.85 mg/dL0.60-1.20Ohio[facility] Memorial HospitalEosinophils Auto (Bld) [#/Vol]Ordered By: Eugenia Jackson on 22-03-7751Atzqzdncdbp (Bld) [#/Vol]0.3 10*3/uL0.0-0.45Ohio[facility] Grady Memorial HospitalEosinophils/100 WBC Auto (Bld) Ordered By: Eugenia Jackson on 23-91-9339Nafcrryxkcz/100 WBC (Bld)4.3 %.Ohio[facility] Grady Memorial HospitalErythrocyte distribution width Auto (RBC) [Ratio]Ordered By: Eugenia Jackson on 23-40-8751Hqjifxfocow distribution width (RBC) [Ratio]14.8 % 11.9-15.3FDetwiler Memorial HospitalGlucose [Mass/volume] in Serum or PlasmaOrdered By: Eugenia Jackson on 09-12-3567Bsuyzna [Mass/Vol]111 mg/eY88-976 [facility] Memorial HospitalComment on above:ADA recommended reference rangeRandom Glucose Reference Range is dependent on time and content of last meal. Glucose of more than 200 mg/dL in a nonstressed, ambulatory subject supports the diagnosisof Diabetes Mellitus.Hematocrit Auto (Bld) [Volume fraction]Ordered By: Eugenia Jackson on 46-13-2951Wwjzfgvabx (Bld) [Volume fraction]40.3 %34.0-46.4FDetwiler Memorial HospitalHemoglobin [Mass/volume] in BloodOrdered By: Eugenia Jackson on 73-65-2193Nwakqfwump (Bld) [Mass/Vol]13.3 g/dL11.8-15.4FDetwiler Memorial HospitalINR in Platelet poor plasma by Coagulation assayOrdered By: Eugenia Jackson on 59-09-4201TUJ Coag (PPP) [Relative time]2.3 {INR}[facility] Memorial HospitalComment on above: INR Therapeutic Range A) [...] by Automated counOrdered By: Eugenia Jackson on 69-23-8266VXR corrected for nucl RBC Auto (Bld) [#/Vol]5.9 10*3/uL3.8-11.6FDetwiler Memorial HospitalLymphocytes Auto (Bld) [#/Vol]Ordered By: Eugenia Jackson on 22-02-0304Lwytcmwnurq (Bld) [#/Vol]2.2 10*3/uL1.00-4.8Ohio[facility] Grady Memorial HospitalLymphocytes/100 WBC Auto (Bld) Ordered By: Eugenia Jackson on 21-73-8614Dvexnpovcwi/100 WBC (Bld)36.9 %.[facility] Auto (RBC) [Entitic mass]Ordered By: Eugenia Jackson on 10-04-4115RQI (RBC) [Entitic mass]31.1 pg24.7-34.3FDetwiler Memorial HospitalMCHC Auto (RBC) [Mass/Vol]Ordered By: Eugenia Jackson on 21-99-7885NHKX (RBC) [Mass/Vol]32.9 g/dL32.0-35.0Ohio[facility] Grady Memorial HospitalMCV Auto (RBC) [Entitic vol]Ordered By: Eugenia Jackson on 79-02-4699CKO (RBC) [Entitic vol]94.4 [id number] Grady Memorial HospitalMonocytes Auto (Bld) [#/Vol]Ordered By: Eugenia Jackson on 45-67-4773Pvzpsguwe (Bld) [#/Vol]0.5 10*3/uL0.0-0.8[facility] HospitalMonocytes/100 WBC Auto (Bld)Ordered By: Eugenia Jackson on 71-51-8244Hreoqaxyi/100 WBC (Bld)7.8 %.[facility] Neutrophils Auto (Bld) [#/Vol]Ordered By: Eugenia Jackson on 28-87-2089Baesnphatkk (Bld) [#/Vol]3.0 10*3/uL1.8-7.7FDetwiler Memorial HospitalNeutrophils/100 WBC Auto (Bld)Ordered By: Eugenia Jackson on 86-39-7608Sfovvsrqwgz/100 WBC (Bld) 50.2 %.[facility] HospitalNo Panel InformationOrdered By: Eugenia Jackson on 28-37-5265Nywrgrqlw GFR (CKD-EPI)> 60.0 mL/MinOhiohealth Grady Memorial HospitalPharmacy Creatinine Clearance (ChemN/AFDetwiler Memorial Hospital Nucleated erythrocytes [Presence] in Blood by Automated countOrdered By: Eugenia Jackson on 04-49-0240Hunytkyjh RBC Auto Ql (Bld)0.3 /100{WBC}0-0.5FDetwiler Memorial HospitalPlatelet mean volume Auto (Bld) [Entitic vol]Ordered By: Eugenia Jackson on 73-67-2005Mdpkipkf mean volume (Bld) [Entitic vol]7.1 fL6.3-10.7 [facility] HospitalPlatelets Auto (Bld) [#/Vol]Ordered By: Eugenia Jackson on 75-25-9498Ynddeettm (Bld) [#/Vol]363 10*3/nR804-609PoslanlkzOhiohealth Grady Memorial HospitalPotassium [Moles/volume] in Serum or PlasmaOrdered By: Eugenia Jackson on 62-84-8709Ltcccudut [Moles/Vol]5.0 mmol/L3.5-5.1FDetwiler Memorial HospitalProthrombin time (PT)Ordered By: Eugenia Jackson on 85-94-9788DM Coag (PPP) [Time]26.6 s9.0-12.9[facility] HospitalComment on above:A hematocrit value greater than 55% may lead to inaccurate results in coagulation testing. Patientshaving hematocrit values >55% require a special collection tube for coagulation studies. Please contact the laboratory at [phone] for redraw instructions.RBC Auto (Bld) [#/Vol]Ordered By: Eugenia Jackson on 03-26-2023 RBC (Bld) [#/Vol]4.27 10*6/uL3.60-5.00[facility] Private Hospitalerum or plasma anion gap determinationOrdered By: Eugenia Jackson on 86-47-6735Ulizd gap [Moles/Vol]13.0 mmol/L6.0-15.0[facility] Hospitalodium [Moles/volume] in Serum or PlasmaOrdered By: Eugenia Jackson on 98-18-3977Ctpyye [Moles/Vol]142 mmol/K386-741PeejwvxfzOhiohealth Grady Memorial HospitalUrea nitrogen [Mass/volume] in Serum or PlasmaOrdered By: Eugeniachilo Jackson on 92-98-5257Ooja nitrogen [Mass/Vol]12 mg/dL7-25[facility] HospitalWBC Auto (Bld) [#/Vol]Ordered By: Eugenia Manuel on 31-01-6849KFE (Bld) [#/Vol]5.9 10*3/uL 3.8-11.6FDetwiler Memorial HospitalPROTIMEon 42-11-7893NSB Coag (PPP) [Relative time]3.62 {INR}NormalLima Memorial HospitalComment on above:Performed By: #### PT #### [facility] [address] [place] [address] Dr. Tg Cerda GUIDELINESSEE [facility] CenterCommymichigan medical center gladwin on above:Result Comment: DESIRED INR: 2.0 - 3.0 CONDITIONS NOT LISTED BELOW 2.5 - 3.5 FOR PROSTHETIC HEART VALVE REPLACEMENT 2.5 - 3.5 RECURRENT THROMBOSIS Performed By: #### PT #### [facility] [address] [place] [address] Dr. Tg John Coag (PPP) [Time]35.7 sCritically high9.0-11.6ThSt. Charles HospitalCommymichigan medical center gladwin on above:Performed By: #### PT #### [facility] [address] [place] [address] Dr. Tg FierroPROTIMEon 92-60-7470XIB Coag (PPP) [Relative time]1.90 {INR} NormalLima Memorial HospitalComment on above:Performed By: #### PT #### [facility] [address] [place] [address] Dr. Tg Cerda GUIDELINESSEE [facility] CenterCommymichigan medical center gladwin on above:Result Comment: DESIRED INR: 2.0 - 3.0 CONDITIONS NOT LISTED BELOW 2.5 - 3.5 FOR PROSTHETIC HEART VALVE REPLACEMENT 2.5 - 3.5 RECURRENT THROMBOSIS Performed By: #### PT #### [facility] [address] [place] [address] Dr. Tg FierroPT Coag (PPP) [Time]19.4 sCritically high9.0-11.6The White HospitalComment on above:Performed By: #### PT #### [facility] [address] [place] [address] Dr. Tg Richards AUTO DIFFon 13-00-1423ASDC #0.0 103/ulNormal0.0-0.1The White HospitalComment on above:Performed By: #### PT #### [facility] [address] [place] [address] Dr. Tg FierroBasophils/100 WBC (Bld)0.5 %Normal0.2-2.0The [facility] Comment on above:Performed By: #### PT #### [facility] [address] [place] [address] Dr. Mas ChangEO #0.2 103/ulNormal0.0-0.7The White HospitalComment on above: Performed By: #### PT #### [facility] [address] [place] [address] Dr. Tg Sandyosinophils/100 WBC (Bld)2.7 %Normal0.9-7.0[facility] Comment on above:Performed By: #### PT #### [facility] [address] [place] [address] Dr. Tg Sandyrythrocyte distribution width (RBC) [Ratio]13.4 %Lvbwff66.0-15.0 The White HospitalComment on above:Performed By: #### PT #### [facility] [address] [place] [address] Dr. Tg FierroHematocrit (Bld) [Volume fraction]40.7 %Pemfkd04.0-48.0The White HospitalComment on above:Performed By: #### PT #### [facility] [address] [place] [address] Dr. Tg FierroHemoglobin (Bld) [Mass/Vol]13.2 g/eRMxsxmt44.0-16.0The White HospitalComment on above:Performed By: #### PT #### [facility] [address] [place] [address] Dr. Tg Gee #0.03 10e3/ulNormal0.00-0.03The White HospitalComment on above:Performed By: #### PT #### [facility] [address] [place] [address] Dr. Tg Gee %0.5 %Normal0.0-0.5The White HospitalComment on above: Performed By: #### PT #### [facility] [address] [place] [address] Dr. Tg Kate #2.1 103/ulNormal1.2-3.8The [facility] HospitalCommymichigan medical center gladwin on above:Performed By: #### PT #### [facility] [address] [place] [address] Dr. Tg Armstronghocytes/100 WBC (Bld)34.9 %Kqwfja17.5-60.0The White HospitalComment on above:Performed By: #### PT #### [facility] [address] [place] [address] Dr. Tg TorrezUAL DIFF REQNONormalThe White HospitalComment on above: Performed By: #### PT #### [facility] [address] [place] [address] Dr. Tg Clay (RBC) [Entitic mass]30.5 pnHmxcnk23.7-34.0The [facility] HospitalComment on above:Performed By: #### PT #### [facility] [address] [place] [address] Dr. Tg Clay (RBC) [Mass/Vol]32.4 g/ePWxttkt62.9-35.2The [facility] Hospitalment on above:Performed By: #### PT #### [facility] [address] [place] [address] Dr. Tg Clay (RBC) [Entitic vol]94.0 dTHvjgap84.0-99.0The White HospitalComment on above:Performed By: #### PT #### [facility] [address] [address] [address] Tg Siu #0.4 103/ulNormal0.3-0.8The [facility] HospitalComment on above:Performed By: #### PT #### [facility] [address] [address] [address] Tg Zafarocytes/100 WBC (Bld)7.1 %Normal1.7-12.0[facility] Comment on above:Performed By: #### PT #### [facility] [address] [place] [address] Dr. Tg Blackwell #3.2 103/ulNormal1.4-6.5The [facility] HospitalComment on above:Performed By: #### PT #### [facility] [address] [place] [address] Dr. Tg Chuutrophils/100 WBC (Bld)54.3 %Yvjprm14.0-75.0The [facility] HospitalComment on above:Performed By: #### PT #### [facility] [address] [place] [address] Dr. Tg Rodrigues mean volume (Bld) [Entitic vol]8.7 fLCritically low 9.5-13.5The [facility] HospitalComment on above:Performed By: #### PT #### [facility] [address] [place] [address] Dr. Tg FierroPLT295 103/miGcyrzt444-489Qiz White HospitalComment on above: Performed By: #### PT #### [facility] [address] [place] [address] Dr. Tg FierroRBC4.33 106/ulNormal4.20-5.40The [facility] HospitalComment on above:Performed By: #### PT #### [facility] [address] [place] [address] Dr. Tg FierroWBC5.9 103/ulNormal4.0-11.0The [facility] HospitalComment on above: Performed By: #### PT #### [facility] [address] [address] [address] Tg FierroPROF 14(COMP METB)on 90-63-6120Xsuqznp [Mass/Vol]3.8 g/dLNormal 3.4-5.0The [facility] HospitalComment on above:Performed By: #### CMP #### [facility] [address] [place] [address] Dr. Tg FierroAlbumin/Globulin [Mass ratio]1.2 {ratio}NormalThe White HospitalComment on above:Performed By: #### CMP #### [facility] [address] [place] [address] Dr. Tg FergusonP [Catalytic activity/Vol]49 U/IMttcwv91-183Bwo White HospitalComment on above:Performed By: #### CMP #### [facility] [address] [place] [address] Dr. Tg FergusonT [Catalytic activity/Vol]21 U/RLzcakc48-81Hpk [facility] HospitalComment on above:Performed By: #### CMP #### [facility] [address] [place] [address] Dr. Tg Biswas gap [Moles/Vol]13.3 mmol/LNormalThe [facility] Comment on above:Performed By: #### CMP #### [facility] [address] [place] [address] Dr. Tg FierroAST [Catalytic activity/Vol]14 U/LCritically myn00-12Ert [facility] HospitalComment on above:Performed By: #### CMP #### [facility] [address] [place] [address] Dr. Tg FierroBilirubin [Mass/Vol]0.5 mg/dLNormal0.2-1.0[facility] Comment on above:Performed By: #### CMP #### [facility] [address] [place] [address] Dr. Tg FierroCalcium [Mass/Vol]9.5 mg/dLNormal8.5-10.1[facility] Comment on above:Performed By: #### CMP #### [facility] [address] [address] [address] Tg FierroChloride [Moles/Vol]104 mmol/FVtrtbo18-736Vzx [facility] Comment on above:Performed By: #### CMP #### [facility] [address] [address] [address] Tg FierroCO2 [Moles/Vol]29.3 mmol/FLlngep65.0-32.0[facility] Comment on above:Performed By: #### CMP #### [facility] [address] [address] [address] Tg FierroCreatinine [Mass/Vol]0.93 mg/dLNormal0.55-1.02Lima [facility] HospitalComment on above:Performed By: #### CMP #### [facility] [address] [address] [address] Tg SandyGFR-AF RUSSIAN>60Normal>=60The [facility] HospitalComment on above:Performed By: #### CMP #### [facility] [address] [address] [address] Tg SandyGFR-NON AF BHOXEVWT35 mL/min/1.44o7Dejgfmdrcn low>=60The [facility] HospitalComment on above:Performed By: #### CMP #### [facility] [address] [address] [address] Tg FierroGlobulin (S) [Mass/Vol]3.2 g/dLNormalThe [facility] HospitalComment on above:Performed By: #### CMP #### [facility] [address] [address] [address] Tg FierroGlucose [Mass/Vol]186 mg/dLCritically xjpy85-408Sch [facility] HospitalComment on above:Performed By: #### CMP #### [facility] [address] [address] [address] Tg FierroPotassium [Moles/Vol]4.6 mmol/LNormal3.5-5.1The [facility] Comment on above:Performed By: #### CMP #### [facility] [address] [address] [address] Tg FierroProtein [Mass/Vol]7.0 g/dLNormal6.4-8.2The [facility] Comment on above:Performed By: #### CMP #### [facility] [address] [address] [address] Tg FierroSodium [Moles/Vol]142 mmol/SBfiudt440-734Vwf [facility] Comment on above:Performed By: #### CMP #### [facility] [address] [address] [address] Tg FierroUrea nitrogen [Mass/Vol]15.0 mg/dLNormal7.0-18.0The [facility] HospitalComment on above:Performed By: #### CMP #### [facility] [address] [place] [address] Dr. Tg Bates nitrogen/Creatinine [Mass ratio]16.1 mg/mgNoMercy Health St. Elizabeth Youngstown HospitalComment on above:Performed By: #### CMP #### [facility] [address] [place] [address] Dr. Tg Garber [facility] ISLANDREN 81-97-6811DSB RATE9 mm/hrNormal<=30The [facility] HospitalComment on above:Performed By: #### CMP #### [facility] [address] [place] [address] Dr. Tg FierroPROTIMEon 84-94-2926IXM Coag (PPP) [Relative time]1.94 {INR} NormalThe White HospitalComment on above:Performed By: #### PT #### [facility] [address] [place] [address] Dr. Tg Cerda [facility] HospitalComment on above:Result Comment: DESIRED INR: 2.0 - 3.0 CONDITIONS NOT LISTED BELOW 2.5 - 3.5 FOR PROSTHETIC HEART VALVE REPLACEMENT 2.5 - 3.5 RECURRENT THROMBOSIS Performed By: #### PT #### [facility] [address] [place], [place] [id number] Dr. Tg FierroPT Coag (PPP) [Time]19.8 sCritically high9.0-11.6The [facility] HospitalComment on above:Performed By: #### PT #### [facility] [address] [place] [address] Dr. Tg FierroC AUTO DIFFon 17-55-5355GJJC #0.1 103/ulNormal0.0-0.1The [facility] HospitalComment on above:Performed By: #### PT #### [facility] [address] [place] [address] Dr. Tg FierroBasophils/100 WBC (Bld)0.7 %Normal0.2-2.0The [facility] Comment on above:Performed By: #### PT #### [facility] [address] [place] [address] Dr. Mas ChangEO #0.3 103/ulNormal0.0-0.7The [facility] HospitalComment on above: Performed By: #### PT #### [facility] [address] [place] [address] Dr. Tg Sandyosinophils/100 WBC (Bld)3.6 %Normal0.9-7.0[facility] Comment on above:Performed By: #### PT #### [facility] [address] [place] [address] Dr. Tg Sandyrythrocyte distribution width (RBC) [Ratio]13.4 %Odgzjp88.0-15.0 The [facility] HospitalComment on above:Performed By: #### PT #### [facility] [address] [place] [address] Dr. Tg FierroHematocrit (Bld) [Volume fraction]38.4 %Rqfmep00.0-48.0The [facility] HospitalComment on above:Performed By: #### PT #### [facility] [address] [place] [address] Dr. Tg FierroHemoglobin (Bld) [Mass/Vol]12.7 g/tGUpdcgd15.0-16.0The [facility] HospitalComment on above:Performed By: #### PT #### [facility] [address] [address] [address] Tg Gee #0.05 10e3/ulCritically high0.00-0.03The [facility] Comment on above:Performed By: #### PT #### [facility] [address] [address] [address] Tg Gee %0.7 %Critically high0.0-0.5The [facility] HospitalComment on above:Performed By: #### PT #### [facility] [address] [place] [address] Dr. Tg Kate #2.6 103/ulNormal1.2-3.8The [facility] HospitalComment on above:Performed By: #### PT #### [facility] [address] [place] [address] Dr. Tg Armstronghocytes/100 WBC (Bld)34.2 %Vzjwfk54.5-60.0The [facility] HospitalComment on above:Performed By: #### PT #### [facility] [address] [place] [address] Dr. Tg TorrezUAL DIFF REQNONormalThe White HospitalComment on above: Performed By: #### PT #### [facility] [address] [place] [address] Dr. Tg Clay (RBC) [Entitic mass]31.2 uwFkgryt46.7-34.0The [facility] HospitalComment on above:Performed By: #### PT #### [facility] [address] [place] [address] Dr. Tg Clay (RBC) [Mass/Vol]33.1 g/dECwqdye96.9-35.2The [facility] HospitalComment on above:Performed By: #### PT #### [facility] [address] [place] [address] Dr. Tg Clay (RBC) [Entitic vol]94.3 iXCaazml61.0-99.0The [facility] HospitalComment on above:Performed By: #### PT #### [facility] [address] [place] [address] Dr. Tg Siu #0.6 103/ulNormal0.3-0.8The [facility] HospitalComment on above:Performed By: #### PT #### [facility] [address] [place] [address] Dr. Tg Zafarocytes/100 WBC (Bld)8.1 %Normal1.7-12.0[facility] Comment on above:Performed By: #### PT #### [facility] [address] [place] [address] Dr. Tg Blackwell #4.1 103/ulNormal1.4-6.5The [facility] HospitalComment on above:Performed By: #### PT #### [facility] [address] [place] [address] Dr. Tg Chuutrophils/100 WBC (Bld)52.7 %Jtelcx77.0-75.0The [facility] HospitalComment on above:Performed By: #### PT #### [facility] [address] [place] [address] Dr. Tg Rodrigues mean volume (Bld) [Entitic vol]8.7 fLCritically low 9.5-13.5The [facility] HospitalComment on above:Performed By: #### PT #### [facility] [address] [place] [address] Dr. Tg FierroPLT278 103/nbJvtgnb541-241Pcc [facility] HospitalComment on above: Performed By: #### PT #### [facility] [address] [place] [address] Dr. Tg FierroRBC4.07 106/ulCritically low4.20-5.40The [facility] HospitalComment on above:Performed By: #### PT #### [facility] [address] [place] [address] Dr. Tg FierroWBC7.7 103/ulNormal4.0-11.0The [facility] HospitalComment on above: Performed By: #### PT #### [facility] [address] [place] [address] Dr. Tg FierroPROAntonia 14(COMP METB)on 32-25-7431Vldfcca [Mass/Vol]3.9 g/dLNormal 3.4-5.0The [facility] HospitalComment on above:Performed By: #### CMP #### [facility] [address] [place] [address] Dr. Tg FierroAlbumin/Globulin [Mass ratio]1.4 {ratio}NormalThe [facility] HospitalComment on above:Performed By: #### CMP #### [facility] [address] [place] [address] Dr. Tg FergusonP [Catalytic activity/Vol]59 U/UVizjqs64-665Gbz [facility] HospitalComment on above:Performed By: #### CMP #### [facility] [address] [place] [address] Dr. Tg FergusonT [Catalytic activity/Vol]21 U/FXpmqjv23-75Ows [facility] HospitalComment on above:Performed By: #### CMP #### [facility] [address] [place] [address] Dr. Tg Biswas gap [Moles/Vol]10.8 mmol/LNormalThe [facility] Comment on above:Performed By: #### CMP #### [facility] [address] [place] [address] Dr. Tg FierroAST [Catalytic activity/Vol]9 U/LCritically gwe08-98Hlf [facility] HospitalComment on above:Performed By: #### CMP #### [facility] [address] [place] [address] Dr. Tg FierroBilirubin [Mass/Vol]0.3 mg/dLNormal0.2-1.0The [facility] Comment on above:Performed By: #### CMP #### [facility] [address] [place] [address] Dr. Tg FierroCalcium [Mass/Vol]9.1 mg/dLNormal8.5-10.1The [facility] Comment on above:Performed By: #### CMP #### [facility] [address] [address] [address] Tg FierroChloride [Moles/Vol]104 mmol/HIwkdoc73-648Qzf [facility] Comment on above:Performed By: #### CMP #### [facility] [address] [address] [address] Tg FierroCO2 [Moles/Vol]28.3 mmol/BJagltx38.0-32.0The [facility] Comment on above:Performed By: #### CMP #### [facility] [address] [address] [address] Tg FierroCreatinine [Mass/Vol]0.86 mg/dLNormal0.55-1.02[facility] HospitalComment on above:Performed By: #### CMP #### [facility] [address] [address] [address] Tg SandyGFR-AF RUSSIAN>60Normal>=60The [facility] HospitalComment on above:Performed By: #### CMP #### [facility] [address] [address] [address] Tg SandyGFR-NON AF RUSSIAN>60Normal>=60The [facility] HospitalComment on above:Performed By: #### CMP #### [facility] [address] [address] [address] Tg FierroGlobulin (S) [Mass/Vol]2.7 g/dLNormalThe [facility] HospitalComment on above:Performed By: #### CMP #### [facility] [address] [address] [address] Tg FierroGlucose [Mass/Vol]120 mg/dLCritically scel28-538Rgd [facility] HospitalComment on above:Performed By: #### CMP #### [facility] [address] [address] [address] Tg FierroPotassium [Moles/Vol]4.1 mmol/LNormal3.5-5.1The [facility] Comment on above:Performed By: #### CMP #### [facility] [address] [place] [address] Dr. Tg FierroProtein [Mass/Vol]6.6 g/dLNormal6.4-8.2[facility] Comment on above:Performed By: #### CMP #### [facility] [address] [address] [address] Tg FierroSodium [Moles/Vol]139 mmol/XEzswks602-011Dqq [facility] Comment on above:Performed By: #### CMP #### [facility] [address] [place] [address] Dr. Tg FierroUrea nitrogen [Mass/Vol]13.0 mg/dLNormal7.0-18.0The [facility] HospitalComment on above:Performed By: #### CMP #### [facility] [address] [place] [address] Dr. Tg Bates nitrogen/Creatinine [Mass ratio]15.1 mg/mgNormACMC Healthcare System Glenbeighe White HospitalComment on above:Performed By: #### CMP #### [facility] [address] [place] [address] Dr. Tg FierroPROTIMEsanchez 76-96-9802BHG Coag (PPP) [Relative time]1.35 {INR} NormalLima Memorial HospitalComment on above:Performed By: #### PT #### [facility] [address] [place] [address] Dr. Tg Cerda GUIDELINESSEE BELOWUniversity Hospitals Portage Medical CenterComment on above:Result Comment: DESIRED INR: 2.0 - 3.0 CONDITIONS NOT LISTED BELOW 2.5 - 3.5 FOR PROSTHETIC HEART VALVE REPLACEMENT 2.5 - 3.5 RECURRENT THROMBOSIS Performed By: #### PT #### [facility] [address] [place] [address] Dr. Tg FierroPT Coag (PPP) [Time]14.1 sCritically high9.0-11.6The [facility] HospitalComment on above:Performed By: #### PT #### [facility] [address] [place] [address] Dr. Tg Garber RATE WESTERGRENon 09-15-8235ZDU RATE8 mm/hrNormal<=30The [facility] HospitalComment on above:Performed By: #### CMP #### [facility] [address] [place] [address] Dr. Tg FierroPROTIMEon 47-26-9209DIN Coag (PPP) [Relative time]1.23 {INR} NormalThe White HospitalComment on above:Performed By: #### PT #### [facility] [address] [place] [address] Dr. Tg Cerda GUIDELINESSEE BELOWNoMercy Health St. [facility] HospitalComment on above:Result Comment: DESIRED INR: 2.0 - 3.0 CONDITIONS NOT LISTED BELOW 2.5 - 3.5 FOR PROSTHETIC HEART VALVE REPLACEMENT 2.5 - 3.5 RECURRENT THROMBOSIS Performed By: #### PT #### [facility] [address] [place] [address] Dr. Tg FierroPT Coag (PPP) [Time]12.9 sCritically high9.0-11.6The [facility] HospitalComment on above:Performed By: #### PT #### [facility] [address] [place] [address] Dr. Mas ChangECHOCARDIO M/2D COMPLETEon [id number] M/2D COMPLETE Patient: WILDA SEN Exam Date: 09/02/2022 : 1945 Gender:F Ordering : DR JAYME PEREZ . Admission #: [id number] Family : Order #: [id number] CLICK HERE TO VIEW EXAM ECHOCARDIOGRAM REPORT [...] by: Dez Bender M.D. on 09/03/2022 at 17:25[facility] Medical CenterGLYCOHEMOGLOBIN A1Con [id number] RECOMMENDATIONSEE BELOWUniversity Hospitals Portage Medical CenterComment on above:Result Comment: ADA RECOMMENDED LIMIT 4.0 - 6.0 ADA THERAPEUTIC TARGET < 7.0 ACTION SUGGESTED > 7.0Performed By: #### A1C #### [facility] [address] [place] [address] Dr. Tg FierroGlucose [Mass/Vol]148 mg/dLUniversity Hospitals Portage Medical CenterComment on above:Performed By: #### A1C #### [facility] [address] [address] [address] Tg FierroHbA1c (Bld) [Mass fraction]6.8 %Critically high4.5-6.2The [facility] HospitalComment on above:Performed By: #### A1C #### [facility] [address] [address] [address] Tg Richards AUTO DIFFon 65-57-6970HWFB #0.1 103/ulNormal0.0-0.1The [facility] Young[facility] Hospitalment on above:Performed By: #### CBC #### [facility] [address] [address] [address] Tg FierroBasophils/100 WBC (Bld)0.8 %Normal0.2-2.0The [facility] Comment on above:Performed By: #### CBC #### [facility] [address] [place] [address] Dr. Tg Dent #0.5 103/ulNormal0.0-0.7The [facility] HospitalComment on above: Performed By: #### CBC #### [facility] [address] [place] [address] Dr. Tg Sandyosinophils/100 WBC (Bld)7.3 %Critically high0.9-7.0The [facility] HospitalComment on above:Performed By: #### CBC #### [facility] [address] [place] [address] Dr. Tg Sandyrythrocyte distribution width (RBC) [Ratio]13.4 %Rtnswx79.0-15.[address] [facility] Hospitalment on above:Performed By: #### CBC #### [facility] [address] [place] [address] Dr. Tg FierroHematocrit (Bld) [Volume fraction]37.1 %Nujqvh52.0-48.0The [facility] Hospitalment on above:Performed By: #### CBC #### [facility] [address] [place] [address] Dr. Tg FierroHemoglobin (Bld) [Mass/Vol]12.9 g/cHJmfoes47.0-16.0The [facility] Hospitalment on above:Performed By: #### CBC #### [facility] [address] [place] [address] Dr. Tg Gee #0.03 10e3/ulNormal0.00-0.03The [facility] on above:Performed By: #### CBC #### [facility] [address] [address] [address] Tg Gee %0.5 %Normal0.0-0.5The [facility] on above: Performed By: #### CBC #### [facility] [address] [address] [address] Tg Kate #2.3 103/ulNormal1.2-3.8The [facility] HospitalCommymichigan medical center gladwin on above:Performed By: #### CBC #### [facility] [address] [place] [address] Dr. Tg Armstronghocytes/100 WBC (Bld)34.9 %Yixkyc00.5-60.0The [facility] HospitalCommym[facility] on above:Performed By: #### CBC #### [facility] [address] [place] [address] Dr. Tg Colon DIFF REQNONormalThe White HospitalComment on above: Performed By: #### CBC #### [facility] [address] [place] [address] Dr. Tg Medina (RBC) [Entitic mass]31.0 joQesyyt94.7-34.0The [facility] on above:Performed By: #### CBC #### [facility] [address] [place] [address] Dr. Tg Clay (RBC) [Mass/Vol]34.8 g/qPQswscw28.9-35.2The [facility] on above:Performed By: #### CBC #### [facility] [address] [place] [address] Dr. Tg Clay (RBC) [Entitic vol]89.2 xXMdwfyx02.0-99.0The [facility] on above:Performed By: #### CBC #### [facility] [address] [place] [address] Dr. Tg Siu #0.4 103/ulNormal0.3-0.8The [facility] HospitalComment on above:Performed By: #### CBC #### [facility] [address] [place] [address] Dr. Tg Zafarocytes/100 WBC (Bld)6.1 %Normal1.7-12.0[facility] Comment on above:Performed By: #### CBC #### [facility] [address] [place] [address] Dr. Tg Blackwell #3.3 103/ulNormal1.4-6.5The [facility] HospitalComment on above:Performed By: #### CBC #### [facility] [address] [place] [address] Dr. Tg Chuutrophils/100 WBC (Bld)50.4 %Afqage61.0-75.0The [facility] HospitalComment on above:Performed By: #### CBC #### [facility] [address] [place] [address] Dr. Tg Augustelet mean volume (Bld) [Entitic vol]8.6 fLCritically low 9.5-13.5The [facility] HospitalComment on above:Performed By: #### CBC #### [facility] [address] [place] [address] Dr. Tg FierroPLT336 103/gyKsaeva815-555Fvi [facility] HospitalComment on above: Performed By: #### CBC #### [facility] [address] [place] [address] Dr. Tg FierroRBC4.16 106/ulCritically low4.20-5.40The [facility] HospitalComment on above:Performed By: #### CBC #### [facility] [address] [place] [address] Dr. Tg FierroWBC6.4 103/ulNormal4.0-11.0The [facility] HospitalComment on above: Performed By: #### CBC #### [facility] [address] [place] [address] Dr. Tg Pinon 14(COMP METB)on 72-25-1511Voxketx [Mass/Vol]3.9 g/dLNormal 3.4-5.0The [facility] HospitalComment on above:Performed By: #### PT #### [facility] [address] [place] [address] Dr. Tg FierroAlbumin/Globulin [Mass ratio]1.3 {ratio}NormalThe White HospitalComment on above:Performed By: #### PT #### [facility] [address] [place] [address] Dr. Tg FergusonP [Catalytic activity/Vol]60 U/UIaxbfd02-355Mfb [facility] HospitalComment on above:Performed By: #### PT #### [facility] [address] [place] [address] Dr. Tg FergusonT [Catalytic activity/Vol]21 U/TIhayub28-16Feb [facility] HospitalComment on above:Performed By: #### PT #### [facility] [address] [place] [address] Dr. Tg Biswas gap [Moles/Vol]15.2 mmol/LNormalThe [facility] Comment on above:Performed By: #### PT #### [facility] [address] [place] [address] Dr. Tg FierroAST [Catalytic activity/Vol]14 U/LCritically wbb17-49Gop [facility] HospitalComment on above:Performed By: #### PT #### [facility] [address] [place] [address] Dr. Tg FierroBilirubin [Mass/Vol]0.4 mg/dLNormal0.2-1.0[facility] Comment on above:Performed By: #### PT #### [facility] [address] [place] [address] Dr. Tg FierroCalcium [Mass/Vol]9.3 mg/dLNormal8.5-10.1[facility] Comment on above:Performed By: #### PT #### [facility] [address] [place] [address] Dr. Tg FierroChloride [Moles/Vol]102 mmol/NMhxbbq76-944Nhl [facility] Comment on above:Performed By: #### PT #### [facility] [address] [address] [address] Tg FierroCO2 [Moles/Vol]26.8 mmol/ZQelwmt67.0-32.0[facility] Comment on above:Performed By: #### PT #### [facility] [address] [address] [address] Tg FierroCreatinine [Mass/Vol]0.74 mg/dLNormal0.55-1.02[facility] HospitalComment on above:Performed By: #### PT #### [facility] [address] [place] [address] Dr. Tg SandyGFR-AF RUSSIAN>60Normal>=60The [facility] HospitalComment on above:Performed By: #### PT #### [facility] [address] [place] [address] Dr. Tg SandyGFR-NON AF RUSSIAN>60Normal>=60The [facility] HospitalComment on above:Performed By: #### PT #### [facility] [address] [address] [address] Tg FierroGlobulin (S) [Mass/Vol]3.1 g/dLNormalThe [facility] HospitalComment on above:Performed By: #### PT #### [facility] [address] [address] [address] Tg FierroGlucose [Mass/Vol]148 mg/dLCritically uhyo36-250Hed [facility] HospitalComment on above:Performed By: #### PT #### [facility] [address] [address] [address] Tg FierroPotassium [Moles/Vol]4.0 mmol/LNormal3.5-5.1[facility] Comment on above:Performed By: #### PT #### [facility] [address] [address] [address] Tg FierroProtein [Mass/Vol]7.0 g/dLNormal6.4-8.2[facility] Comment on above:Performed By: #### PT #### [facility] [address] [address] [address] Tg FierroSodium [Moles/Vol]140 mmol/CPshmid799-866Nix [facility] Comment on above:Performed By: #### PT #### [facility] [address] [place] [address] Dr. Tg FierroUrea nitrogen [Mass/Vol]12.0 mg/dLNormal7.0-18.0The [facility] HospitalComment on above:Performed By: #### PT #### [facility] [address] [place] [address] Dr. Tg FierroUrea nitrogen/Creatinine [Mass ratio]16.2 mg/mgNormalThe White HospitalComment on above:Performed By: #### PT #### [facility] [address] [place] [address] Dr. Tg FierroSED RATE WESTERGRENon 97-16-6048OKA RATE30 mm/hrNormal<=30The [facility] HospitalComment on above:Performed By: #### SEDR #### [facility] [address] [place] [address] Dr. Tg Richards AUTO DIFFon 20-13-8037LFOZ #0.1 103/ulNormal0.0-0.1[facility] HospitalComment on above:Performed By: #### CBC #### [facility] [address] [place] [address] Dr. Tg FierroBasophils/100 WBC (Bld)0.6 %Normal0.2-2.0[facility] Comment on above:Performed By: #### CBC #### [facility] [address] [place] [address] Dr. Tg Dent #0.2 103/ulNormal0.0-0.7The [facility] HospitalComment on above: Performed By: #### CBC #### [facility] [address] [place] [address] Dr. Tg Sandyosinophils/100 WBC (Bld)3.1 %Normal0.9-7.0[facility] Comment on above:Performed By: #### CBC #### [facility] [address] [place] [address] Dr. Tg Sandyrythrocyte distribution width (RBC) [Ratio]13.6 %Owjgbv03.0-15.0 The [facility] HospitalComment on above:Performed By: #### CBC #### [facility] [address] [place] [address] Dr. Tg FierroHematocrit (Bld) [Volume fraction]42.3 %Hxumlf58.0-48.0The [facility] HospitalComment on above:Performed By: #### CBC #### [facility] [address] [place] [address] Dr. Tg FierroHemoglobin (Bld) [Mass/Vol]13.2 g/zTPmzwjn82.0-16.0The [facility] HospitalComment on above:Performed By: #### CBC #### [facility] [address] [place] [address] Dr. Tg Gee #0.04 10e3/ulCritically high0.00-0.03[facility] Comment on above:Performed By: #### CBC #### [facility] [address] [place] [address] Dr. Tg Gee %0.5 %Normal0.0-0.5The [facility] HospitalComment on above: Performed By: #### CBC #### [facility] [address] [place] [address] Dr. Tg ArmstrongH #2.5 103/ulNormal1.2-3.8The [facility] HospitalComment on above:Performed By: #### CBC #### [facility] [address] [place] [address] Dr. Tg Sanchezmphocytes/100 WBC (Bld)31.6 %Qthkpp98.5-60.0The [facility] HospitalComment on above:Performed By: #### CBC #### [facility] [address] [place] [address] Dr. Tg Colon DIFF REQNONormalThe White HospitalComment on above: Performed By: #### CBC #### [facility] [address] [place] [address] Dr. Tg Clay (RBC) [Entitic mass]30.3 tqNyufyj89.7-34.0The [facility] HospitalComment on above:Performed By: #### CBC #### [facility] [address] [place] [address] Dr. Tg Clay (RBC) [Mass/Vol]31.2 g/yXCxehib98.9-35.2The [facility] HospitalComment on above:Performed By: #### CBC #### [facility] [address] [place] [address] Dr. Tg Parker (RBC) [Entitic vol]97.0 rTZycjby25.0-99.0The [facility] HospitalComment on above:Performed By: #### CBC #### [facility] [address] [place] [address] Dr. Tg Siu #0.5 103/ulNormal0.3-0.8The [facility] HospitalComment on above:Performed By: #### CBC #### [facility] [address] [place] [address] Dr. Tg Zafarocytes/100 WBC (Bld)6.3 %Normal1.7-12.0[facility] Comment on above:Performed By: #### CBC #### [facility] [address] [place] [address] Dr. Tg Blackwell #4.5 103/ulNormal1.4-6.5The [facility] HospitalComment on above:Performed By: #### CBC #### [facility] [address] [place] [address] Dr. Tg Chuutrophils/100 WBC (Bld)57.9 %Emytqc15.0-75.0The [facility] HospitalComment on above:Performed By: #### CBC #### [facility] [address] [place] [address] Dr. Tg Rodrigues mean volume (Bld) [Entitic vol]8.6 fLCritically low 9.5-13.5The [facility] HospitalComment on above:Performed By: #### CBC #### [facility] [address] [place] [address] Dr. Tg FierroPLT295 103/mrWoxtiq898-334Bnw [facility] HospitalComment on above: Performed By: #### CBC #### [facility] [address] [place] [address] Dr. Tg FierroRBC4.36 106/ulNormal4.20-5.40The [facility] HospitalComment on above:Performed By: #### CBC #### [facility] [address] [place] [address] Dr. Tg FierroWBC7.8 103/ulNormal4.0-11.0The [facility] HospitalComment on above: Performed By: #### CBC #### [facility] [address] [place] [address] Dr. Tg FierroPROF 14(COMP METB)on 12-78-6336Ersiwsd [Mass/Vol]4.5 g/dLNormal 3.4-5.0The [facility] on above:Performed By: #### CMP #### [facility] [address] [place] [address] Dr. Tg FierroAlbumin/Globulin [Mass ratio]1.5 {ratio}NormalThe [facility] HospitalCommymich[facility] on above:Performed By: #### CMP #### [facility] [address] [place] [address] Dr. Tg Pete [Catalytic activity/Vol]62 U/NZbbyba78-476Dsc [facility] HospitalCommym[facility] on above:Performed By: #### CMP #### [facility] [address] [place] [address] Dr. Tg Carrillo [Catalytic activity/Vol]25 U/RHrqzfw18-55Blz [facility] HospitalComment on above:Performed By: #### CMP #### [facility] [address] [address] [address] Tg Biswas gap [Moles/Vol]10.6 mmol/LNormalThe [facility] Comment on above:Performed By: #### CMP #### [facility] [address] [address] [address] Tg FierroAST [Catalytic activity/Vol]12 U/LCritically aqg34-27Jfp [facility] HospitalComment on above:Performed By: #### CMP #### [facility] [address] [address] [address] Tg FierroBilirubin [Mass/Vol]0.5 mg/dLNormal0.2-1.0[facility] Comment on above:Performed By: #### CMP #### [facility] [address] [address] [address] Tg FierroCalcium [Mass/Vol]9.8 mg/dLNormal8.5-10.1[facility] Comment on above:Performed By: #### CMP #### [facility] [address] [place] [address] Dr. Tg FierroChloride [Moles/Vol]102 mmol/IThklll52-804Pns [facility] Comment on above:Performed By: #### CMP #### [facility] [address] [place] [address] Dr. Tg FierroCO2 [Moles/Vol]31.8 mmol/ALcaccd36.0-32.0[facility] Comment on above:Performed By: #### CMP #### [facility] [address] [place] [address] Dr. Tg FierroCreatinine [Mass/Vol]0.88 mg/dLNormal0.55-1.02The [facility] HospitalComment on above:Performed By: #### CMP #### [facility] [address] [address] [address] Tg Perez-AF RUSSIAN>60Normal>=60The [facility] HospitalComment on above:Performed By: #### CMP #### [facility] [address] [address] [address] Yilan ChangEGFR-NON AF RUSSIAN>60Normal>=60The [facility] HospitalComment on above:Performed By: #### CMP #### [facility] [address] [address] [address] Tg FierroGlobulin (S) [Mass/Vol]3.1 g/dLNormParkwood HospitalComment on above:Performed By: #### CMP #### [facility] [address] [address] [address] Tg FierroGlucose [Mass/Vol]187 mg/dLCritically xsst95-684Owa [facility] HospitalComment on above:Performed By: #### CMP #### [facility] [address] [place] [address] Dr. Tg FierroPotassium [Moles/Vol]4.4 mmol/LNormal3.5-5.1[facility] Comment on above:Performed By: #### CMP #### [facility] [address] [place] [address] Dr. Tg FierroProtein [Mass/Vol]7.6 g/dLNormal6.4-8.2[facility] Comment on above:Performed By: #### CMP #### [facility] [address] [place] [address] Dr. Tg FierroSodium [Moles/Vol]140 mmol/BPwktqm780-411Knm [facility] Comment on above:Performed By: #### CMP #### [facility] [address] [place] [address] Dr. Tg FierroUrea nitrogen [Mass/Vol]14.0 mg/dLNormal7.0-18.0The [facility] HospitalComment on above:Performed By: #### CMP #### [facility] [address] [place] [address] Dr. Tg Bates nitrogen/Creatinine [Mass ratio]15.9 mg/mgNormalThSt. Charles HospitalComment on above:Performed By: #### CMP #### [facility] [address] [place] [address] Dr. Tg Garber RATE WESTERGRENon 69-33-7810YUZ RATE5 mm/hrNormal<=30The [facility] HospitalComment on above:Performed By: #### SEDR #### [facility] [address] [place] [address] Dr. Tg Richards AUTO DIFFon 82-15-8070FSYU #0.0 103/ulNormal0.0-0.1The [facility] HospitalComment on above:Performed By: #### PT #### [facility] [address] [place] [address] Dr. Tg FierroBasophils/100 WBC (Bld)0.6 %Normal0.2-2.0The [facility] Comment on above:Performed By: #### PT #### [facility] [address] [place] [address] Dr. Mas ChangESavage #0.4 103/ulNormal0.0-0.7The [facility] HospitalComment on above: Performed By: #### PT #### [facility] [address] [place] [address] Dr. Tg Sandyosinophils/100 WBC (Bld)5.4 %Normal0.9-7.0[facility] Comment on above:Performed By: #### PT #### [facility] [address] [place] [address] Dr. Tg Sandyrythrocyte distribution width (RBC) [Ratio]13.5 %Mimqpw68.0-15.0 The [facility] HospitalComment on above:Performed By: #### PT #### [facility] [address] [place] [address] Dr. Tg FierroHematocrit (Bld) [Volume fraction]39.4 %Iisymn13.0-48.0The [facility] HospitalComment on above:Performed By: #### PT #### [facility] [address] [place] [address] Dr. Tg FierroHemoglobin (Bld) [Mass/Vol]12.8 g/dEJzowwv95.0-16.0The [facility] HospitalComment on above:Performed By: #### PT #### [facility] [address] [place] [address] Dr. Tg Gee #0.02 10e3/ulNormal0.00-0.03The [facility] on above:Performed By: #### PT #### [facility] [address] [place] [address] Dr. Tg Gee %0.3 %Normal0.0-0.5The [facility] HospitalCommymichigan medical [facility] on above: Performed By: #### PT #### [facility] [address] [place] [address] Dr. Tg SanchezEliana #2.4 103/ulNormal1.2-3.8The [facility] HospitalCommymich[facility] on above:Performed By: #### PT #### [facility] [address] [place] [address] Dr. Tg Armstronghocytes/100 WBC (Bld)36.2 %Nnhlaf09.5-60.0The [facility] on above:Performed By: #### PT #### [facility] [address] [place] [address] Dr. Tg TorrezUAL DIFF REQNONormalThe [facility] HospitalCommymichigan medical center [facility] on above: Performed By: #### PT #### [facility] [address] [place] [address] Dr. Tg Clay (RBC) [Entitic mass]31.0 ppTsdeud15.7-34.0The [facility] on above:Performed By: #### PT #### [facility] [address] [place] [address] Dr. Tg Clay (RBC) [Mass/Vol]32.5 g/uRXgumgu21.9-35.2The [facility] on above:Performed By: #### PT #### [facility] [address] [place] [address] Dr. Tg Clay (RBC) [Entitic vol]95.4 pCKlcmyg29.0-99.0[facility] on above:Performed By: #### PT #### [facility] [address] [address] [address] Tg Siu #0.5 103/ulNormal0.3-0.8The [facility] HospitalComment on above:Performed By: #### PT #### [facility] [address] [place] [address] Dr. Tg Zafarocytes/100 WBC (Bld)8.0 %Normal1.7-12.0[facility] Comment on above:Performed By: #### PT #### [facility] [address] [place] [address] Dr. Tg Blackwell #3.3 103/ulNormal1.4-6.5The [facility] HospitalComment on above:Performed By: #### PT #### [facility] [address] [place] [address] Dr. Tg Chuutrophils/100 WBC (Bld)49.5 %Lilyrg04.0-75.0The [facility] HospitalComment on above:Performed By: #### PT #### [facility] [address] [place] [address] Dr. Tg Augustelet mean volume (Bld) [Entitic vol]8.7 fLCritically low 9.5-13.5The [facility] HospitalComment on above:Performed By: #### PT #### [facility] [address] [place] [address] Dr. Tg FierroPLT276 103/osYrxbfg785-485Sdr [facility] HospitalComment on above: Performed By: #### PT #### [facility] [address] [place] [address] Dr. Tg FierroRBC4.13 106/ulCritically low4.20-5.40The [facility] HospitalComment on above:Performed By: #### PT #### [facility] [address] [place] [address] Dr. Tg FierroWBC6.7 103/ulNormal4.0-11.0The [facility] HospitalComment on above: Performed By: #### PT #### [facility] [address] [place] [address] Dr. Tg FierroGLYCOHEMOGLOBIN A1Con 54-21-3184ZOW RECOMMENDATIONSEE BELOWNormal [facility] on above:Result Comment: ADA RECOMMENDED LIMIT 4.0 - 6.0 ADA THERAPEUTIC TARGET < 7.0 ACTION SUGGESTED > 7.0Performed By: #### A1C #### [facility] [address] [place] [address] Dr. Tg FierroGlucose [Mass/Vol]151 mg/dLNormalThe [facility] HospitalCommymichigan [facility] on above:Performed By: #### A1C #### [facility] [address] [place] [address] Dr. Tg FierroHbA1c (Bld) [Mass fraction]6.9 %Critically high4.5-6.2The White HospitalComment on above:Performed By: #### A1C #### [facility] [address] [place] [address] Dr. Tg FierroPROF 14(COMP METB)on 76-00-7807Gecrtnv [Mass/Vol]3.8 g/dLNormal 3.4-5.0The [facility] HospitalComment on above:Performed By: #### PT #### [facility] [address] [place] [address] Dr. Tg FierroAlbumin/Globulin [Mass ratio]1.3 {ratio}NormalThe [facility] HospitalCommymich[facility] on above:Performed By: #### PT #### [facility] [address] [place] [address] Dr. Tg Pete [Catalytic activity/Vol]43 U/LCritically agf99-209Bnw [facility] HospitalComment on above:Performed By: #### PT #### [facility] [address] [place] [address] Dr. Tg Carrillo [Catalytic activity/Vol]19 U/LKfeado34-32Pgx [facility] HospitalComment on above:Performed By: #### PT #### [facility] [address] [place] [address] Dr. Yilan ChangAnion gap [Moles/Vol]13.7 mmol/LNormalLima [facility] Hospital Comment on above:Performed By: #### PT #### [facility] [address] [place] [address] Dr. Tg FierroAST [Catalytic activity/Vol]11 U/LCritically vkr83-53Haz [facility] HospitalComment on above:Performed By: #### PT #### [facility] [address] [place] [address] Dr. Tg FierroBilirubin [Mass/Vol]0.4 mg/dLNormal0.2-1.0[facility] Comment on above:Performed By: #### PT #### [facility] [address] [place] [address] Dr. Tg FierroCalcium [Mass/Vol]9.1 mg/dLNormal8.5-10.1[facility] Comment on above:Performed By: #### PT #### [facility] [address] [place] [address] Dr. Tg FierroChloride [Moles/Vol]104 mmol/ZTnaijp30-185Cbt [facility] Comment on above:Performed By: #### PT #### [facility] [address] [place] [address] Dr. Tg FierroCO2 [Moles/Vol]28.5 mmol/CPrfdzy02.0-32.0[facility] Comment on above:Performed By: #### PT #### [facility] [address] [place] [address] Dr. Tg FierroCreatinine [Mass/Vol]0.77 mg/dLNormal0.55-1.02The [facility] HospitalComment on above:Performed By: #### PT #### [facility] [address] [place] [address] Dr. Tg SandyGFR-AF RUSSIAN>60Normal>=60The [facility] HospitalComment on above:Performed By: #### PT #### [facility] [address] [place] [address] Dr. Tg SandyGFR-NON AF RUSSIAN>60Normal>=60The [facility] HospitalComment on above:Performed By: #### PT #### [facility] [address] [address] [address] Tg FierroGlobulin (S) [Mass/Vol]3.0 g/dLNormalThSt. Charles HospitalComment on above:Performed By: #### PT #### [facility] [address] [address] [address] Tg FierroGlucose [Mass/Vol]124 mg/dLCritically nbug99-502Lpq [facility] HospitalComment on above:Performed By: #### PT #### [facility] [address] [address] [address] Tg FierroPotassium [Moles/Vol]4.2 mmol/LNormal3.5-5.1[facility] Comment on above:Performed By: #### PT #### [facility] [address] [address] [address] Tg FierroProtein [Mass/Vol]6.8 g/dLNormal6.4-8.2[facility] Comment on above:Performed By: #### PT #### [facility] [address] [address] [address] Tg FierroSodium [Moles/Vol]142 mmol/FMjhaco958-064RbcLima Memorial Hospital Comment on above:Performed By: #### PT #### [facility] [address] [address] [address] Tg FierroUrea nitrogen [Mass/Vol]12.0 mg/dLNormal7.0-18.0The [facility] HospitalComment on above:Performed By: #### PT #### [facility] [address] [address] [address] Tg FierroUrea nitrogen/Creatinine [Mass ratio]15.6 mg/mgNormalThSt. Charles HospitalCommymichigan medical center [facility] on above:Performed By: #### PT #### [facility] [address] [address] [address] Tg Garber RATE WESTERGRENon 96-05-7858IAP RATE8 mm/hrNormal<=30The [facility] HospitalComment on above:Performed By: #### CMP #### [facility] [address] [place], [place] [address] Dr. Tg Almaraz Quick Testingon 46-55-5814SmpyvvFqpioirzXlgyn [employer] Other Vital Signs Date TimeVital SignValuePerforming XqwtkijqgUldcyxdd53-10-0558 14:20-0500Body mahebm422 cmEmanjit Perez MD Work Phone: [phone] [place], [place] [address]Ymfxcpwgmm56-13-8510 14:20-0500Body mass index (BMI) [Ratio]20.41 kg/e5DrhkdxJayme Perez MD Work Phone: [phone] [place], [place] 4376411-10-2025 14:20-0500Body jlywxu34.25 kgJayme Perez MD Work Phone: [phone] [place], [place] 4376411-10-2025 14:20-0500Heart rate85 /min Jayme Perez MD Work Phone: [phone])[facility] [place], [place] [address]Lihnalevhj54-00-6996 14:20-9039PkW9% (BldA) [Mass fraction]99 %Jayme Perez MD Work Phone: [facility] [phone] 15:00-0400Diastolic blood uhfqilon69 mm[Hg]Jayme Perez MD Work Phone: [phone]08-04-2025 15:00-0400 Heart rate81 /Ramya Perez MD Work Phone: [phone] [place], [place] 5231608-04-2025 15:00-0400 Respiratory rate16 /Ramya Perez MD Work Phone: [phone] [place], [place] 5873008-04-2025 15:00-0400 SaO2% (BldA) [Mass fraction]98 %Jayme Perez MD Work Phone: [phone] [place], [place] 5873008-04-2025 15:00-0400 Systolic blood oqulmrho747 mm[Hg]Jayme Perez MD Work Phone: [facility]08-04-2025 13:03-0400 Body wxptyl781.02 cmEmanjit Perez MD Work Phone: [phone] [place], [place] 9936108-04-2025 13:03-0400 Body dmkwphhyxqq62 [degF]Jayme Perez MD Work Phone: [phone] [place], [place] 5231608-04-2025 13:03-0400 Body .34 kgJayme Perez MD Work Phone: [phone] [address] [place], [place] 9936106-26-2025 11:39-0400 Body qxeegl654 cmEmanjit Perez MD Work Phone: [phone]06-26-2025 11:39-0400Body mass index (BMI) [Ratio]22.5 kg/q9FhqmcfJayme Perez MD Work Phone: [phone])[facility] [place], [place] [address]Lukjrjnrkt54-70-6412 11:39-0400Body .61 kgJayme Perez MD Work Phone: [phone] [place], [place] [address]Mksgohzddr81-66-5821 11:35-0400Body ycxhbz984 cm Jayme Perez MD Work Phone: [phone] [place], [place] [address]Ogpwgvbpwe32-55-2965 11:35-0400Body mass index (BMI) [Ratio]22.5 kg/q1FhcggmJamye Perez MD Work Phone: [phone])[facility]7679[facility] HospitalNbmsaaiagd95-96-6088 11:35-0400Body genxkm95.61 kgJayme Perez MD Work Phone: [facility] HospitalGfynlugebs91-55-7442 13:54-0400Body cgnuwm428 cm Jayme Perez MD Work Phone: [facility] HospitalDwdroeqgzi11-80-8704 13:54-0400Body mass index (BMI) [Ratio]22.5 kg/k7VwhgkzJayme Perez MD Work Phone: [facility] HospitalFkouorthoj90-62-9294 13:54-0400Body uquzcs90.61 kgJayme Perez MD Work Phone: [phone])[address] [place], [place] 4376404-24-2025 13:54-0400Diastolic blood rvkswdly67 mm[Hg]Jayme Perez MD Work Phone: [phone] HospitalJelvpkjofo42-32-9482 13:54-0400Heart fdda439 /min Jayme Perez MD Work Phone: [phone])[facility] HospitalWwngsirzxq18-53-7154 13:54-3836ThE4% (BldA) [Mass fraction]99 %Jayme Perez MD Work Phone: [phone] [place], [place] 4376404-24-2025 13:54-0400Systolic blood pynfsowh541 mm[Hg]Jayme Perez MD Work Phone: [phone] [place], [place] 4376412-30-2024 11:03-0500Diastolic blood yxtcutjv89 mm[Hg]Eugenia JACKSON [facility] 050172-30-2024 11:03-0500Heart rate77 /minEugenia JACKSON [facility] 050172-30-2024 11:03-0500Systolic blood xvnmslzy214 mm[Hg]Eugenia JACKSON [facility] 050170-03-2024 14:16-0400Body hmxmmu348 cmEmanjit Perez MD Work Phone: [phone] HospitalJzabhvmnlv83-65-8598 14:16-0400Body mass index (BMI) [Ratio]21.79 kg/v9IvxpteJayme Perez MD Work Phone: [phone] HospitalOqchsowbdn89-51-4923 14:16-0400Body rrwoqe50.79 kgJayme Perez MD Work Phone: [phone] HospitalCcqtgkqzxh35-97-9763 14:16-0400Diastolic blood ryakitgn13 mm[Hg]Jayme Perez MD Work Phone: [phone] HospitalGnorouhrtj33-77-4926 14:16-0400Heart rate87 /min Jayme Perez MD Work Phone: [facility] HospitalRacabugmtn77-85-7232 14:16-4552EeD8% (BldA) [Mass fraction]98 %Jayme Perez MD Work Phone: [facility] HospitalScqdbfytic89-92-1622 14:16-0400Systolic blood naoryzww905 mm[Hg]Jayme Perez MD Work Phone: [facility] HospitalYywzlufniy87-31-3885 09:09-0400Body temperature 98.6 [degF]Eugenia JACKSON [facility] [address]-02-2024 09:09-0400Diastolic blood gydaelov67 mm[Hg]Eugenia JACKSON [facility]04-02-2024 09:09-0400Heart rate80 /minEugenia JACKSON [facility]04-02-2024 09:09-0400Respiratory rate16 /minEugenia JACKSON [facility]04-02-2024 09:09-0400Systolic blood vtwpafba747 mm[Hg]Eugenia JACKSON [facility]01-31-2024 10:47-0500Blood Pressure LocationPatrick EATON [facility]01-31-2024 10:47-0500Diastolic blood uzoxulvg26 mm[Hg]Renato EATON [facility]01-31-2024 10:47-0500Heart rate82 /minPatrick EATON [facility]01-31-2024 10:47-0500Respiratory rate16 /minPatricalexandra EATON [facility]01-31-2024 10:47-0500Systolic blood jzhciyvx069 mm[Hg]Renato EATON [facility]01-25-2024 09:48-0500Body emapty567 cmEmanjit Perez MD Work Phone: [facility] HospitalLwiptobfrg99-72-9372 09:48-0500Body mass index (BMI) [Ratio]24.45 kg/c3QmcwgpJayme Perez MD Work Phone: [facility] HospitalDfxegzisms96-16-1132 09:48-0500Body jnefvl31.6 kg Jayme Perez MD Work Phone: [facility] HospitalZbbmyiybkw00-49-7052 09:48-0500Heart rate57 /min Jayme Perez MD Work Phone: [facility] HospitalZmqtuewris05-91-6155 09:48-1119WaL5% (BldA) [Mass fraction]98 %Jayme Perez MD Work Phone: [facility] HospitalBwhydnpfgu54-82-8253 09:20-0500Body ycpojz722.02 Kyaw Glover Other [email or web address] Other 01-12-2024 09:20-0500Body mass index (BMI) [Ratio] 23.91 kg/j6CmtxiLou Glover Other [employer] Other 01-12-2024 09:20-0500Body lktudaazoyf93.7 [degF]Lou Glover Other [employer] Other 01-12-2024 09:20-0500Body ffondb10.24 kgLou Glover Other [email or web address] Other 01-12-2024 09:20-0500Diastolic blood dotdbcwq05 mm[Hg] Lou Glover Other [email or web address] Other 01-12-2024 09:20-0500Respiratory rate18 /minFrancheskaconchita Glover Other [facility] [email or web address] Other 01-12-2024 09:20-5564KsG0% (BldA) [Mass fraction]96 % Lou Glover Other [place] [email or web address] Other 01-12-2024 09:20-0500Systolic blood mm[Hg] Lou Glover Other [place] [email or web address] Other 09-13-2023 13:15-0400Body toketq462.02 cmMD Jayme Dione Work Phone: [phone] [place], [place] 5231609-13-2023 13:15-0400 Body qlmylwrzmjt68.2 [degF]MD Jayme Perez Work Phone: [phone] [place], [place] 5231609-13-2023 13:15-0400 Body gckoaw19 kgMD Pérezganesh Shannantomás Work Phone: [phone] [place], [place] 5231609-13-2023 13:15-0400 Diastolic blood bgjivkea45 mm[Hg]MD Jayme Perez Work Phone: [phone] [place], [place] 5231609-13-2023 13:15-0400 Heart rate87 /minMD Jayme Dione Work Phone: [phone] [place], [place] 5231609-13-2023 13:15-0400 Respiratory rate16 /minMD Pérezganesh Dione Work Phone: [phone] [place], [place] 5231609-13-2023 13:15-0400 SaO2% (BldA) [Mass fraction]97 %MD Jayme Perez Work Phone: [facility]09-13-2023 13:15-0400 Systolic blood milhpegl365 mm[Hg]MD Jamye Perez Work Phone: [facility]11-08-2021 13:15-0500 Body ciqcyc442.02 Viola Baker Other [employer] Other 11-08-2021 13:15-0500Body mass index (BMI) [Ratio] 23.91 kg/l9DrljemrtaAstrid Ryanault Other [employer] Other 11-08-2021 13:15-0500Body dbeoekfkvve01.3 [degF] Astrid Ryanault Other [employer] Other 11-08-2021 13:15-0500Body tpyofq90.24 kgStyeyo Ryanault Other [employer] Other 11-08-2021 13:15-9876TrE2% (BldA) [Mass fraction]94 % Astrid Ryanault Other [employer] Other Encounters Encounter DateEncounter TypeCare ProviderFacilityStart: 05-23-2025 End: 54-85-2824Dehlzv outpatient visit 25 minutesJayme Perez MD Work Phone: [address] StreetComment on above:Type 2 diabetes mellitus with diabetic microalbuminuria, without long-term current use of insulin (HCC); Type 2 diabetes mellitus with stage 3a chronic kidney disease, without long-term current use of insulin (HCC); Stage 3a chronic kidney disease (CMS-HCC); Microalbuminuria; Paroxysmal atrial fibrillation (HCC); [employer] customer service current use of anticoagulantStart: 05-23-2025 End: 85-62-7531iyzmbnrsmxFNFFHO J HEMEYERNot AvailableStart: 05-23-2025 End: 53-36-2022Yznxui flowsMatthew Perez MD Work Phone: [facility] [address] Family MedicineStart: 05-23-2025 End: 66-41-0872Fkuntx flowsheetJayme Perez MD Work Phone: NOTB [address] Family MedicineStart: 05-20-2025 End: 59-05-1168Znrbetkfl Result EncounterEdganesh Perez MD Work Phone: NOYU External Department UnsolicitedStart: 05-20-2025 End: 16-34-9978Pbssebcuy Result EncounterEdganesh Perez MD Work Phone: noms External Department UnsolicitedStart: 04-19-2025 End: 60-41-3494Zckdzfbzn Result EncounterEdganesh Perez MD Work Phone: noms External Department UnsolicitedStart: 04-19-2025 End: 50-00-2082Uzdezzdtb Result EncounterEdganesh Perez MD Work Phone: noms External Department UnsolicitedStart: 04-05-2025 End: 52-15-5862Lvfoyhdzn Result EncounterEdganesh Perez MD Work Phone: NOMP External Department UnsolicitedStart: 04-05-2025 End: 44-02-1334Orsasxueo Result EncounterEdganesh Perez MD Work Phone: NOBC External Department UnsolicitedStart: 03-08-2025 End: 65-90-9688Shsuxcpof Result Natasha Perez MD Work Phone: noms External Department UnsolicitedStart: 03-08-2025 End: 36-52-1689Zctzmaezt Result Natasha Perez MD Work Phone: NOOJ External Department UnsolicitedStart: 02-14-2025 End: 14-94-9310Fqcznmmbs to same day surgery centerEugenia Venegas MD-[facility]Start: 02-14-2025 End: 50-54-0256ybfijisokbArmfwj J Hemeyer MD Work Phone: [facility] Work Phone: Start: 02-14-2025 End: 38-50-9642efjijbmnxzEknmwbi P MANUELYayacility:CD:[id number]: 02-11-2025 End: 05-09-3080Tyunmry encounter procedureAurormoi [place] 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 ENGINEER-BC -Electrodiagnostics Work Phone: Start: 02-11-2025 End: 37-63-9795zhopreopleKxklvk J Hemeyer MD Work Phone: [facility] Work Phone: Start: 02-08-2025 End: 26-11-2566Jkxadzwny Natasha Perez MD Work Phone: [facility] 100 Family MedicineComment on above:Med Change RequestStart: 02-08-2025 End: 89-84-2319Hgxpuc outpatient visit 25 minutesEdganesh Perez MD Work Phone: [facility] [address] Family MedicineComment on above:Kidney stone on left side (Primary Dx); Hospital discharge follow-upStart: 02-08-2025 End: 73-25-6594fospeeixtoRVOCIZ J HEMEYERNot AvailableStart: 02-04-2025 End: 96-41-9905Vuvpelpqu Result EncounterGeneric External Data ProviderNOMS External Department UnsolicitedStart: 02-04-2025 End: 92-13-0237Xxqghxosb Result EncounterGeneric External Data ProviderNOMS External Department UnsolicitedStart: 02-04-2025 End: 94-78-2801lhazuapezpRlmcgdg D [facility] Work Phone: Start: 02-04-2025 End: 13-78-0360Vhxauzub ReferredLobito Mejias DO-LAB [facility] Start: 02-02-2025 End: 54-37-3478Abrxwarum Result EncounterGeneric External Data ProviderNOMS External Department UnsolicitedStart: 02-02-2025 End: 07-79-4256Xclegskqk Result EncounterGeneric External Data ProviderNOMS External Department UnsolicitedStart: 01-31-2025 End: 70-61-6589Pbzpvjuzz Result EncounterGeneric External Data ProviderNOMS External Department UnsolicitedStart: 01-31-2025 End: 04-96-0084Xwpdvjxxc Result EncounterGeneric External Data ProviderNOMS External Department UnsolicitedStart: 01-31-2025 End: 53-57-1519jxfgtvbalqDdqvhzn P COOKFacility:CD:[id number]: 01-21-2025 End: 06-40-3190Agdcpngfj Result EncounterGeneric External Data ProviderNOMS External Department UnsolicitedStart: 01-21-2025 End: 56-24-4994Beoswqtpn Result EncounterGeneric External Data ProviderNOMS External Department UnsolicitedStart: 01-20-2025 End: 57-10-2848kkwjdqrphxAJIGWA J HEMEYERNot AvailableStart: 01-06-2025 End: 03-70-2430Edypby flowsMatthew Perez MD Work Phone: NOM[facility] CI FM 100Start: 01-06-2025 End: 67-94-8938Ixugsaharleen Perez MD Work Phone: NOM[facility] CI FM 100Start: 01-06-2025 End: 83-75-8124Retgtqgww Result EncounterEdganesh Perez MD Work Phone: NOMS External Department UnsolicitedStart: 01-06-2025 End: 84-16-0937sxkzrqihsgQFISPN J HEMEYERNot AvailableStart: 01-06-2025 End: 72-54-5162Bhrrct outpatient visit 15 minutesEdganesh Perez MD Work Phone: NOM[facility] CI FM 100Comment on above:Vertigo (Primary Dx) Start: 01-05-2025 End: 34-13-6409Yfgcvt flowsheetMeldylan Whitten PTANOMS CI PTStart: 01-05-2025 End: 35-63-5712Pndcnp flowsheetMelissa Kelbley PTANOMS CI PTStart: 01-05-2025 End: 99-05-9366rfjenpxulmCbgzyjg Kelbley PTANOMS CI PTComment on above:Vertigo (Primary Dx)Start: 12-31-2024 End: 45-88-8083Qqklux flowsheetMelissa Kelbley PTANOMS CI PTStart: 12-31-2024 End: 38-94-9884Alaklg flowsheetMelissa Kelbley PTANOMS CI PTStart: 12-31-2024 End: 44-99-0237mmiasyzjllRxrgbum Kelbley PTANOMS CI PTComment on above:Vertigo (Primary Dx)Start: 12-29-2024 End: 64-97-2170Dmhitq flowsheetMelissa Kelbley PTANOMS CI PTStart: 12-29-2024 End: 73-45-0622Hifghe flowsheetMelissa Kelbley PTANOMS CI PTStart: 12-29-2024 End: 43-14-6760rqseqqhpnwAjqgupe Kelbley PTANOMS CI PTComment on above:Vertigo (Primary Dx)Start: 12-23-2024 End: 83-88-1532Iyykyf flowsheetSammantha Narvaez PTNOMS CI PTStart: 12-23-2024 End: 22-02-4751Dryhlg flowsheetSammantha Narvaez PTNOMS CI PTStart: 12-23-2024 End: 91-83-7911eiztlviihrErmkxfxwi Narvaez PTNOMS CI PTComment on above: Vertigo (Primary Dx)Start: 12-22-2024 End: 1946Wvbfub Judy Perez MD Work Phone: [facility] CI FM 100Start: 12-22-2024 End: 54-15-6409Smebpo Judy Perez MD Work Phone: NOM[facility] CI FM 100Start: 12-22-2024 End: 82-12-5137Qjlyim outpatient visit 25 minutesJayme Perez MD Work Phone: NOMS CI FM 100Comment on above:Vertigo (Primary Dx); Paroxysmal atrial fibrillation (HCC); FCI current use of anticoagulant; Medication monitoring encounterStart: 12-22-2024 End: 17-80-8307bbzeooqpntTJSDSR J HEMEYERNot AvailableStart: 12-08-2024 End: 19-44-2223Gltjgjsxp Result Natasha Perez MD Work Phone: NOMS External Department UnsolicitedStart: 12-08-2024 End: 30-57-4371Ucwcbirdi Result Natasha Perez MD Work Phone: NOMS External Department UnsolicitedStart: 11-24-2024 End: 66-10-3943Ulidskeul Result EncounterGeneric External Data ProviderNOMS External Department UnsolicitedStart: 11-24-2024 End: 01-27-9365Dldrwrstz Result EncounterGeneric External Data ProviderNOMS External Department UnsolicitedStart: 11-24-2024 End: 05-00-2577Kubmap OnlyJayme Perez MD Work Phone: NOM[facility] CI FM 100Start: 11-04-2024 End: 53-18-7358Twfobr flowsheetJayme Perez MD Work Phone: NOM[facility] CI FM 100Start: 11-04-2024 End: 33-93-5766Hgjywh flowsMatthew Perez MD Work Phone: NOM[facility] CI FM 100Start: 11-04-2024 End: 71-39-5462Fxzsshc encounter procedureJayme Perez MD Work Phone: NOMS [...] insulin (CMS/HCC); Immunosuppressed status (CMS/HCC)Start: 11-04-2024 End: 05-01-6506mgwwmgriecRWEXFO J HEMEYERNot AvailableStart: 11-02-2024 End: 30-89-0222Dfkfjrgcz Result Natasha Perez MD Work Phone: NOJS External Department UnsolicitedStart: 11-02-2024 End: 50-89-7199Aashfqgau Result Natasha Perez MD Work Phone: NOWT External Department UnsolicitedStart: 11-02-2024 End: 03-29-0506Xfsbzt OnlyEdganesh Perez MD Work Phone: NOMS CI FM 100Comment on above:Type 2 diabetes mellitus with diabetic microalbuminuria, without long-term current use of insulin (CMS/HCC) (Primary Dx)Start: 10-25-2024 End: 86-17-1463Bvdmlrrfu Result Natasha Perez MD Work Phone: NOMS External Department UnsolicitedStart: 10-25-2024 End: 47-18-8106Rbbnzbzji Result Natasha Perez MD Work Phone: NOWU External Department UnsolicitedStart: 10-21-2024 End: 63-08-5039Ynbjcz flowsMatthew Perez MD Work Phone: NOM[facility] CI FM 100Start: 10-21-2024 End: 15-04-2339Oytwqk flowsMatthew Perez MD Work Phone: NOM[facility] CI FM 100Start: 10-21-2024 End: 90-41-0747Seaebq outpatient visit 25 minutesEdganesh Perez MD Work Phone: NOMS CI FM 100Comment on above:Type 2 diabetes mellitus with stage 3a chronic kidney disease, without long-term current use of insulin (HCC) (CMS/HCC); Stage 3a chronic kidney disease (HCC) (CMS/HCC); Microalbuminuria; Paroxysmal atrial fibrillation (CMS/HCC); [employer] customer service current use of anticoagulantStart: 10-21-2024 End: 34-18-7871oxfwhgacrkOPNTKJ J HEMEYERNot AvailableStart: 10-18-2024 End: 62-51-8835Xqqbbtadt Result EncounterGeneric External Data ProviderNOMS External Department UnsolicitedStart: 10-18-2024 End: 34-82-2993Awsdsdjsb Result EncounterGeneric External Data ProviderNOMS External Department UnsolicitedStart: 10-16-2024 End: 30-02-0137CiraanHlzkhg J Hemeyer MD Work Phone: NOMF BNS FMComment on above:Paroxysmal atrial fibrillation ([facility])Start: 10-09-2024 End: 78-41-0286RmcnkzAptifw J Hemeyer MD Work Phone: NOMS CI FM 100Comment on above:Type 2 diabetes mellitus with stage 3a chronic kidney disease, without long-term current use of insulin (HCC) ([facility])Start: 09-27-2024 End: 29-97-0379Todjprxcd Result Natasha Perez MD Work Phone: noms External Department UnsolicitedStart: 09-27-2024 End: 91-83-6476Zvlxdzmkg Result Natasha Perez MD Work Phone: NOUA External Department UnsolicitedStart: 09-13-2024 End: 50-42-8709Xivowbzjz Result Natasha Perez MD Work Phone: NOEI External Department UnsolicitedStart: 09-13-2024 End: 89-00-6201Qrsblqnvt Result Natasha Perez MD Work Phone: noms External Department UnsolicitedStart: 08-17-2024 End: 24-13-1626Lwobqoyap Result Natasha Perez MD Work Phone: noms External Department UnsolicitedStart: 08-17-2024 End: 21-81-2152Nfyuemnoj Result Natasha Perez MD Work Phone: NOMS External Department UnsolicitedStart: 08-04-2024 End: 63-51-3849Dgxule flowsRebecca Thornton DO Work Phone: NOMS NB OPHTStart: 08-04-2024 End: 18-34-4988Gwfmkl flowsRebecca Thornton DO Work Phone: noms NB OPHTStart: 08-04-2024 End: 27-06-7827swepvqdnjbRSFLYUPL D ZAHLERNot AvailableStart: 07-19-2024 End: 95-24-2430Smiwxghbq Result EncounterEdganesh Perez MD Work Phone: NOJV External Department UnsolicitedStart: 07-19-2024 End: 00-46-0341Hhiunbngl Result EncounterEdganesh Perez MD Work Phone: NOGI External Department UnsolicitedStart: 07-12-2024 End: 61-78-4438oleozquyiiYeazrkv P COOKFacility:EU SanduskyStart: 07-12-2024 End: 29-95-1538Lengekt encounter procedureEugenia JACKSON [facility] Start: 07-05-2024 End: 78-80-6889Oqjhjflnj Result EncounterGeneric External Data ProviderNOMS External Department UnsolicitedStart: 07-05-2024 End: 90-82-2470Erwnfyjsa Result EncounterGeneric External Data ProviderNOMS External Department UnsolicitedStart: 07-01-2024 End: 20-85-7728Svjiwhhyr Result EncounterEdganesh Perez MD Work Phone: NOWC External Department UnsolicitedStart: 07-01-2024 End: 65-49-5036Rkbcseomx Result Natasha Perez MD Work Phone: NOEM External Department UnsolicitedStart: 06-17-2024 End: 68-75-3044Evwrazstf encounterEdganesh Perez MD Work Phone: NOMS CI FM 100Start: 06-16-2024 End: 98-53-4619Rknurayjq Result EncounterGeneric External Data ProviderNOMS External Department UnsolicitedStart: 06-16-2024 End: 64-51-6602Bjpkgwirc Result EncounterGeneric External Data ProviderNOMS External Department UnsolicitedStart: 05-15-2024 End: 12-86-8972Zagbhdefz Result EncounterEdganesh Perez MD Work Phone: NOOX External Department UnsolicitedStart: 05-15-2024 End: 35-05-3438Bhcwbqavj Result EncounterEdganesh Perez MD Work Phone: NOLD External Department UnsolicitedStart: 05-14-2024 End: 66-75-8592Sgrjehvuv Result EncounterEdganesh Perez MD Work Phone: noms External Department UnsolicitedStart: 05-14-2024 End: 47-17-9178Ndaciinls Result EncounterEdganesh Perez MD Work Phone: noms External Department UnsolicitedStart: 04-23-2024 End: 78-80-9682Gqeqppevz Result EncounterEdganesh Perez MD Work Phone: noms External Department UnsolicitedStart: 04-23-2024 End: 51-01-0376Lkewgadpj Result EncounterEdganesh Perez MD Work Phone: noms External Department UnsolicitedStart: 04-22-2024 End: 81-78-5942Dmsvrlxwj Result EncounterEdganesh Perez MD Work Phone: noms External Department UnsolicitedStart: 04-22-2024 End: 14-91-6236Uvssmuxft Result EncounterEdganesh Perez MD Work Phone: NOIM External Department UnsolicitedStart: 04-16-2024 End: 06-98-3060Pywtaijzn Result EncounterGeneric External Data ProviderNOMS External Department UnsolicitedStart: 04-16-2024 End: 79-79-1699Ogrewyztp Result EncounterGeneric External Data ProviderNOMS External Department UnsolicitedStart: 04-15-2024 End: 08-56-9210Sybrpr outpatient visit 25 minutesEdganesh Perez MD Work Phone: NOMS CI FM 100Comment on above:Paroxysmal atrial fibrillation (CMS/HCC) (Primary Dx); [facility]CI current use of anticoagulant; Type 2 diabetes mellitus with stage 3a chronic kidney disease, without long-term current use of insulin (HCC) (CMS/HCC); Stage 3a chronic kidney disease (HCC) (CMS/HCC); Microalbuminuria; Unexplained weight loss; Chronic fatigue; Sleep arousal disorderStart: 04-13-2024 End: 55-07-4958Gyhipwzrf Result Natasha Perez MD Work Phone: noms External Department UnsolicitedStart: 04-13-2024 End: 15-02-2689Btlwjtono Result Natasha Perez MD Work Phone: noms External Department UnsolicitedStart: 03-31-2024 End: 51-80-4702Ssidlmn encounter procedureMD Jayme Perez Work Phone: [facility] [address] Work Phone: Start: 03-31-2024 End: 92-17-7228rmbpsttdtiRY Jayem Perez Work Phone: [facility] Work Phone: Start: 03-29-2024 End: 39-62-1260Jeirvipfy Result EncounterGeneric External Data ProviderNOMS External Department UnsolicitedStart: 03-29-2024 End: 32-70-7280Iwuedanmi Result EncounterGeneric External Data ProviderNOMS External Department UnsolicitedStart: 03-25-2024 End: 77-69-4677XkfjmqHoapxh J Hemeyer MD Work Phone: NOAO BNS FMComment on above:Type 2 diabetes mellitus with stage 3a chronic kidney disease, without long-term current use of insulin (HCC) ([facility])Start: 03-17-2024 End: 21-56-5115Reqmnxidl Result Natasha Perez MD Work Phone: noms External Department UnsolicitedStart: 03-17-2024 End: 23-10-5206Rwprclsnz Result Natasha Perez MD Work Phone: NOIE External Department UnsolicitedStart: 01-14-2024 End: 12-82-8128Ziersaflu Result EncounterGeneric External Data ProviderNOMS External Department UnsolicitedStart: 01-14-2024 End: 55-98-5932Dvpteftqo Result EncounterGeneric External Data ProviderNOMS External Department UnsolicitedStart: 10-14-2023 End: 09-14-9881Yxxgpxj encounter procedureEugenia JACKSON [facility] Start: 10-09-2023 End: 75-21-5889Gecpykcnp Result EncounterGeneric External Data ProviderNOMS External Department UnsolicitedStart: 10-09-2023 End: 85-27-7707Nqpumcgjn Result EncounterGeneric External Data ProviderNOMS External Department UnsolicitedStart: 01-59-8457Jkozfauns Result Encounter Generic External Data ProviderNOMS External Department UnsolicitedStart: 79-80-1460Dbhajojfv Result EncounterGeneric External Data ProviderNOMS External Department UnsolicitedStart: 08-13-2023 End: 21-68-3907Ceinbrv encounter procedureRenato EATON [facility] Start: 08-07-2023 End: 03-90-0559Bwclwi outpatient visit 25 minutesEdganesh Perez MD Work Phone: NOLB BNS FMComment on above:Chronic diastolic heart failure (CMS/HCC) (Primary Dx); Paroxysmal atrial fibrillation (CMS/HCC); Type 2 diabetes mellitus with stage 3a chronic kidney disease, without long-term current use of insulin (HCC) (CMS/HCC); Stage 3a chronic kidney disease (HCC) (CMS/HCC); Microalbuminuria; Former smoker; 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, adult; [employer] current use of anticoagulant; Psoriatic arthropathy (CMS/HCC); Gastroesophageal reflux disease without esophagitisStart: 07-25-2023 End: 59-30-8085dyxqrhjzqsTxrpf Keller Other [facility] [email or web address] Other Start: 23-23-5591Aljwyv outpatient visit 25 minutes [facility] ClydeStart: 04-07-2023 End: 20-01-6442suxwodanrzDZ Jayme Perez Work Phone: [facility] Work Phone: Start: 04-07-2023 End: 55-81-9086Cyshxuvj ReferredMD Jayme Perez Work Phone: [facility]-Surgery [facility]: [facility] End: 46-39-9167Vgcggav encounter procedureMD Jayme Perez Work Phone: [facility] Work Phone: Start: 03-20-2023 End: 16-71-2371Ufl Drop offEugenia JACKSON [facility] Start: 03-20-2023 End: 39-54-9532Nwhhuvu encounter procedureEugenia JACKSON [facility] Start: 11-11-2022 End: 10-49-4431azctesjcooWB EDWARD HEMEYER .Facility:R1Rgmaa: 10-25-2022 End: 58-85-1151bcdnyhigruAQ RADAMES MONTEIROFacility:Q1Gbxpm: 10-14-2022 End: 26-67-6842srijpnctkrJE JAYME PEREZ .Facility:R3Trviy: 09-24-2022 End: 71-99-9204tugztuefvmAE RADAMES MONTEIROFacility:K4Aybrn: 09-09-2022 End: 27-09-3278otfheoikadLG JAYME PEREZ .Facility:W4Xidlt: 09-02-2022 End: 68-64-4817pptqzypieoFS EDGANESH ORRYER .Facility:I2Ovgsg: 08-09-2022 End: 62-18-0033gxswkdnonrZI JAYME PEREZ .Facility:H6Vzmhc: 08-05-2022 End: 46-24-3641bdwjpnvfhfMS RADAMES MORROWFacility:C0Wnhjh: 04-15-2022 End: 42-03-5857sffmzcuzjrRP RADAMES MONTEIROFacility:S2Sqtng: 02-20-2022 End: 89-14-3714ztczbqiivrKZ RADAMES MONTEIROFacility:Y1Cnoqo: 02-07-2022 End: 56-12-2215lxslrdnudvHH JAYME PEREZ .Facility:C4Lirgk: 05-21-2021 End: 43-89-8813hdzrjqwigbDzmdpnkvv [place] Other Nort [email or web address] Other Start: 26-31-0442Foyorq outpatient visit 15 minutes [facility] Procedures DateProcedureProcedure DetailPerforming ClinicianStart: 64-82-2433ZZRKNX PROTHROMBIN TIME INR W/O Kandy Perez MD Work Phone: Start: 80-84-8017EBY HEMOGLOBIN E2XKdpwcbJayme Perez MD Work Phone: Start: 84-66-9895KVIZPA PROTHROMBIN TIME INR W/O COUM Jayme Perez MD Work Phone: Start: 76-54-2037EDEGRQ PROTHROMBIN TIME INR W/O COUM Jayme Perez MD Work Phone: Start: 26-33-9195WcfakonfbnCludph Hemeyer MD Work Phone: Start: 04-42-6209Rbjhmf abdominal X-rayJayme Perez MD Work Phone: Start: 84-88-2063Ipzax cultureJayme Perez MD Work Phone: Start: 76-65-7316TYTVD CULTURE - FRMCGeneric External Data ProviderStart: 09-43-3625SW ABDOMEN 1VGeneric External Data ProviderStart: 94-68-1201YMHEQ CULTURE 2Generic External Data ProviderStart: 93-18-8703EPMWF CULTURE 1Generic External Data ProviderStart: 95-13-5998JIZ CBC WITH AUTO DIFF Generic External Data ProviderStart: 70-68-2737LNTDZS PROTHROMBIN TIME INR W/O COUMJayme Perez MD Work Phone: Start: 65-90-8673SQXAZR PROTHROMBIN TIME INR W/O COUM Jayme Perez MD Work Phone: Start: 67-59-4672OLJ CBC WITH AUTO DIFFGeneric External Data ProviderStart: 60-63-5551PFO MICROALB CREAT RATIO RANDOMJayme Perez MD Work Phone: Start: 89-98-0802WQLZDP PROTHROMBIN TIME INR W/O COUM Jayme Perez MD Work Phone: Start: 28-06-1614JLB CBC WITH AUTO DIFFGeneric External Data ProviderStart: 56-25-9625LWIMZS PROTHROMBIN TIME INR W/O COUM Jayme Perez MD Work Phone: Start: 44-35-8777WWDCEJ PROTHROMBIN TIME INR W/O COUM Jayme Perez MD Work Phone: Start: 07-24-8038PALFJG PROTHROMBIN TIME INR W/O COUM Jayme Perez MD Work Phone: Start: 66-43-8625Autwpogwoyer ophthalmic imaging optic nerveFelicia Thornton DO Work Phone: Start: 08-04-2024 End: 07-16-5884Xvfvx medical xm&eval comprhnsv estab pt 1/>Glaucoma suspect of both eyesFelicia Thornton DO Work Phone: comment on above:Glaucoma suspect of both eyes (Primary Dx); Type 2 diabetes mellitus with stage 3a chronic kidney disease, without long-term current use of insulin (HCC) (CMS/HCC); Dry eyes; Blepharitis of upper and lower eyelids of both eyes, unspecified typeStart: 66-67-9517HXDHFO PROTHROMBIN TIME INR W/O Kandy Perez MD Work Phone: Start: 28-69-8590SM ABDOMEN 1VGeneric External Data ProviderStart: 10-67-9022BNPQRK PROTHROMBIN TIME INR W/O Kandy Perez MD Work Phone: Start: 04-51-2964GOR CBC WITH AUTO DIFFGeneric External Data ProviderStart: 46-75-6536YV CHEST W Andrew Perez MD Work Phone: Start: 23-90-6934MEWFAW PROTHROMBIN TIME INR W/O KRISTY Perez MD Work Phone: Start: 93-52-4169BF ABDOMEN PELVIS W Radhika Perez MD Work Phone: Start: 19-65-0862AEH CREATININEJayme Perez MD Work Phone: Start: 58-14-7396KNN CBC WITH AUTO DIFFGeneric External Data ProviderStart: 04-90-7122AEAOQE PROTHROMBIN TIME INR W/O KRISTY Perez MD Work Phone: Start: 11-34-1632ZPC CBC WITH AUTO DIFFGeneric External Data ProviderStart: 72-45-7665XOMRXB PROTHROMBIN TIME INR W/O COUM Jayme Perez MD Work Phone: Start: 33-45-7667TS DEXA AXIAL SKELETONGeneric External Data ProviderStart: 08-66-9986PB ABDOMEN 1VGeneric External Data ProviderStart: 91-83-3760HWG BUNGeneric External Data ProviderStart: 08-20-2023 ALL CARBON DIOXIDEGeneric External Data ProviderStart: 60-61-5051TGY CHLORIDE Generic External Data ProviderStart: 58-87-6164CDS PHOSPHOROUSGeneric External Data ProviderStart: 12-58-3647ZXB SODIUMGeneric External Data ProviderStart: 26-11-3312ZWQ URIC ACIDGeneric External Data ProviderStart: 35-38-0055ZDR CALCIUMGeneric External Data ProviderStart: 68-61-9796DBO CREATININEGeneric External Data ProviderStart: 95-08-5032AkolglrwqoaZcznmdv COOK Start: 73-48-0835Imjvfufuatxhcz shockwave lithotripsy of calculus of kidneyEugenia JACKSON Start: 80-18-6163Rmnysduosim laser lithotripsy of ureteric calculusEugenia JACKSON Beeminder Start: 86-19-2513Wcrfdopjazx removal of ureteric stent Eugenia [employer] Start: 59-18-8596Hcamsqyblsvklb shockwave lithotripsy of calculus of kidneyEugenia JACKSON Start: 27-78-7129Emgagthtzx retrograde pyelogramEugenia JACKSON Beeminder Start: 05-09-4388Cnlqxltvlnbosw shockwave lithotripsy of calculus of kidneyEugenia JACKSON Beeminder Start: 09-77-1060Usbjbtmzdjn removal of ureteric stent Eugenia JACKSON Beeminder Start: 51-39-4616Xwkhagfgypwokp shockwave lithotripsy of calculus of kidneyEugenia JACKSON Start: 97-40-2430Xoajwntuwnc insertion of ureteric stentEugenia JACKSON Start: 62-59-3808Ykulzfuvvi retrograde pyelogramEugenia JACKSON Beeminder Start: 62-79-2510Ykdnrmkjcqo anastomosis of ureter to bladder with insertion of stent into ureterEugenia Netlist Abdominal hysterectomyPacaverna memorial hospitalk Synerchip appendectomyPatrick EATON Extraction of cataractPacaverna memorial hospitalk EATON Partial lobectomy of lungGreenbank EATON TonsillectomyGreenbank Synerchip Plan of Treatment DateCare ActivityDetailAuthorStart: 93-51-6605Copnvfeo screeningDiabetes: Retinopathy ScreeningNOMT HealthcareStart: 58-48-2808Ffeqhnjcz vaccination Influenza Vaccine (#1)[facility]OMS HealthcareComment on above:Postponed from 03/14/2025 (Patient Refused)Start: 43-47-3952Ycskjtcl screeningDiabetes: Retinopathy ScreeningNOMT HealthcareStart: 11-14-2025 End: 66-98-0977Tuisghj encounter gyguwrqbw48/04/2026 2:00 PM EDT [facility] [address] Jayme Perez MD [address] [address] [facility]OMRiddle HospitalFuentes[address] White Streettart: 48-12-8036Kojgw screening for proteinDiabetes: Urine Protein ScreeningNOMT HealthcareStart: 10-21-2025 End: 15-70-1504Jryjfrifrivwu metabolic 2000 panel - Serum or PlasmaComprehensive metabolic panel Lab Routine Type 2 diabetes mellitus with diabetic microalbuminuria, without long-term current use of insulin (HCC) Type 2 diabetes mellitus with stage 3a chronic kidneydisease, without long-term current use of insulin (HCC) Expected: 10/21/2025, Expires: 01/19/2026[facility] Work Phone: Comment on above:Expected: 10/21/2025, Expires: 01/19/2026Start: 10-21-2025 End: 11-38-4504Kcyepgxokt A1c/Hemoglobin.total in BloodHemoglobin A1c Lab Routine Type 2 diabetes mellitus with diabetic microalbuminuria, without long-term current use of insulin (HCC) Expected: 10/21/2025, Expires: 01/19/2026 NOMS HealthcareComment on above:Expected: 10/21/2025, Expires: 01/19/2026Start: 10-21-2025 End: 97-24-5835Xuuer 1996 panel - Serum or PlasmaLipid panel Lab Routine Type 2 diabetes mellitus with stage 3a chronic kidney disease, without long-term current use of insulin (HCC) Expected: 10/21/2025, Expires: 01/19/2026NOMT HealthcareComment on above:Expected: 10/21/2025, Expires: 01/19/2026Start: 69-47-2875Ilubemdnzj A1c measurementDiabetes: Hemoglobin B1EYPBJSSM Health [facility] Start: 59-15-1140Oqaozucabivp Vaccine: 65+ Years (1 of 2 - PCV)Pneumococcal Vaccine: 65+ Years (1 of 2 - PCV)[facility] HealthcareComment on above:Postponed from 1952 (Patient Refused)Postponed from 1965 (Patient Refused)Start: 06-29-2025 End: 91-32-9533Knjezhf encounter eoayczrdr80/17/2025 3:00 PM EST Office Visit [facility] [address] [place] [address] Felicia Thornton DO [address] [place] [address] [facility] EyeStart: 05-23-2025 End: 09-34-2467Shsuffs encounter procedureNOMT [place] 100 Family MedicineComment on above:Type 2 diabetes mellitus with diabetic microalbuminuria, without long- term current use of insulin (HCC); Type 2 diabetes mellitus with stage 3a chronic kidney disease, without long-term current use of insulin (HCC); Stage 3a chronic kidney disease (CMS-HCC); Microalbuminuria; Paroxysmal atrial fibrillation (HCC); [facility] current use of anticoagulantStart: 76-61-6939Svywhych screening Diabetes: Retinopathy ScreeningSSM Health Cardinal Glennon Children's HospitalStart: 44-85-8446Vlwamtxdjn A1c measurementDiabetes: Hemoglobin Y3RGFQL HealthcareStart: 03-27-2025 End: 24-04-0035Absduxwvuz A1c/Hemoglobin.total in BloodHemoglobin A1c Lab Routine Type 2 diabetes mellitus with stage 3a chronic kidney disease, without long-term current use of insulin (HCC) ([facility]/HCC) Expected: 03/27/2025 (Approximate), Expires: 10/25/2025NOMS HealthcareComment on above:Expected: 03/27/2025 (Approximate), Expires: 10/25/2025Start: 54-49-7063Uqqqiahwa vaccinationLAYTON HOSPITAL HealthcareStart: 57-56-7253XelfjwvqqOhiohealth Grady Memorial Hospital Start: 11-36-8088SagcauqnrKeenan Private Hospitaltart: 29-67-8020Viiybu abdominal X-rayKeenan Private Hospitaltart: 55-41-9897QbrqvlgvrKeenan Private Hospitaltart: 02-08-2025 End: 38-49-0345Fubybpm encounter nqdzqgquu24/29/2025 10:30 AM EDT Office Visit [facility] [address] [place] [address] Jayme Perez MD [address] [place] [address] (Fax)[facility] CI FM 100Start: 16-21-8610Ojxaekjg identified in Urine by CultureUrine [facility] Start: 19-21-5518Hprjn cultureKeenan Private Hospitaltart: 02-02-2025 End: 23-36-8709Gczhqcj encounter /23/2025 1:30 PM EDT Office Visit [facility] [address] [place] [address] Felicia Thornton DO [address] [place] [address] [facility] NB OPHTStart: 80-53-4256Vyqlufefx vaccination Influenza Vaccine (#1)NOMS HealthcareComment on above:Postponed from 03/14/2024 (Patient Refused)Start: 01-10-2025 End: 08-72-4159xqmitvlrhv03/30/2025 11:00 AM EDT Treatment [facility] [address] [place] [address] Joselyn Narvaez, PTNOMS CI PTStart: 01-07-2025 End: 95-46-5705tvsgsktomk19/27/2025 12:00 PM EDT Treatment [facility] [address] [place] [address] Clara Whitten, PROCESS SERVER [facility] CI PTStart: 01-05-2025 End: 05-66-4005cqfrzvbvbrJBOS CI PTComment on above:ArrivedStart: 12-31-2024 End: 69-59-4165enuqqfnisvVMKE CI PTComment on above:Vertigo (Primary Dx)Start: 12-29-2024 End: 43-92-8185bqkcdiccduJRFZ CI PTComment on above:ArrivedStart: 12-23-2024 End: 79-37-0501jqykjdlfrr81/12/2025 12:30 PM EDT Evaluation [facility] [address] [place] [address] Joselyn Narvaez, PT Vertigo (Primary Dx)[facility] CI PTComment on above:Vertigo (Primary Dx)Start: 12-22-2024 End: 88-77-0962Ypsmtkh encounter erwjxxuod97/11/2025 11:45 AM EDT Office Visit [facility] [address] [place] [address] Jayme Perez MD [address] [place] [address] (Fax) ArrivedNOMS CI FM 100Comment on above: ArrivedStart: 11-04-2024 End: 33-69-7822Wdjxksv encounter procedureNOMS CI FM 100Comment on above: Encounter for Medicare annual wellness exam; Advance directive discussed with patient; Encounter for screening for other disorder; Screening for alcohol problem; Screening mammogram, encounter forStart: 10-25-2024 End: 84-07-8298Rpbldkkszhii/Creatinine panel in random UrineMicroalbumin / creatinine urine ratio Lab Routine Type 2 diabetes mellitus with stage 3a chronic kidney disease, without long-term current use of insulin (HCC) (CMS/HCC) Stage 3a chronic kidney disease (HCC) (CMS/HCC) Microalbuminuria Expected: 10/25/2024 (Approximate), Expires: 10/25/2025[facility] Work Phone: Comment on above:Expected: 10/25/2024 (Approximate), Expires: 10/25/2025Start: 10-21-2024 End: 32-77-7098Barzvha encounter procedureNOMS CI FM 100Comment on above:Type 2 diabetes mellitus with stage 3a chronic kidney disease, without long-term current use of insulin (HCC) (CMS/HCC); Stage 3a chronic kidney disease (HCC) (CMS/HCC); Microalbuminuria; Paroxysmal atrial fibrillation (CMS/HCC); intermodal customer service current use of anticoagulantStart: 10-14-2024 End: 64-15-7390C2, reverseT3, reverse Lab Routine Chronic fatigue Expected: 10/14/2024 (Approximate), Expires: 04/15/2025NOMT HealthcareComment on above: Expected: 10/14/2024 (Approximate), Expires: 04/15/2025Start: 10-14-2024 End: 97-43-5203Wszlxmzdqbp [Units/volume] in Serum or PlasmaTSH Lab Routine Chronic fatigue Expected: 10/14/2024 (Approximate), Expires: 04/15/2025NOMT HealthcareComment on above:Expected: 10/14/2024 (Approximate), Expires: 04/15/2025Start: 10-14-2024 End: 63-31-2344Fhfxvtlru (T4) free [Mass/volume] in Serum or PlasmaT4, free Lab Routine Chronic fatigue Expected: 10/14/2024 (Approximate), Expires: 04/15/2025 NOMS HealthcareComment on above:Expected: 10/14/2024 (Approximate), Expires: 04/15/2025Start: 10-14-2024 End: 63-10-1938Fpnwkgljebirlwgv (T3) [Mass/volume] in Serum or PlasmaT3 Lab Routine Chronic fatigue Expected: 10/14/2024 (Approximate), Expires: 04/15/2025 [facility] Work Phone: Comment on above:Expected: 10/14/2024 (Approximate), Expires: 04/15/2025Start: 10-14-2024 End: 56-29-8858Hszhjvmjpyaogvlx (T3) Free [Mass/volume] in Serum or PlasmaT3, free Lab Routine Chronic fatigue Expected: 10/14/2024 (Approximate), Expires: 04/15/2025NOMS HealthcareComment on above:Expected: 10/14/2024 (Approximate), Expires: 04/15/2025Start: 08-04-2024 End: 22-25-5784Yblalen encounter procedureNOFREEMAN ORTHOPAEDICS & SPORTS MEDICINE OPHTComment on above:Arrived Start: 11-09-2024Medicare Annual Wellness (AWV)Medicare Annual Wellness (AWV) [facility] HealthcareStart: 04-15-2024 End: 44-20-6725Vblgrls encounter ubbodztfi33/03/2024 2:30 PM EDT Office Visit [facility] 100 [address] [facility] [address] [place] [address] Jayme Perez MD [address] [place] [address] (Fax)[facility] CI FM 100Start: 47-66-8359Glueeaxtz vaccination Influenza Vaccine (#1)[facility] HealthcareStart: 94-98-6961Vkusz screening for proteinDiabetes: Urine Protein ScreeningNOMT HealthcareStart: 09-01-2023 End: 34-72-5999Qtozqwc encounter pkftbkiie00/19/2024 10:30 AM EST Office Visit [facility] [address] [place] [address] Felicia Thornton DO [address] [place] [address] [facility] NB OPHTStart: 91-61-9368Jkpscwrque A1c measurementDiabetes: Hemoglobin C1IZFJT HealthcareStart: 23-84-4549Fgcdani endoscopyOR Cysto/Retro/Stent/Stone/Holmium Laser (Right)[facility] Hospitaltart: 27-40-4042Xmqfiptkz vaccinationInfluenza Vaccine (#1)[facility] HealthcareStart: 10-06-2449Najxs screening for proteinDiabetes: Urine Protein ScreeningLAYTON HOSPITAL HealthcareStart: 67-65-6321MNdS/Tdap/Td Vaccines (1 - Tdap) DTaP/Tdap/Td Vaccines (1 - Tdap)[facility] HealthcareStart: 20-22-3959Ffwvdddryubn Vaccine: 65+ Years (1 - PCV)Pneumococcal Vaccine: 65+ Years (1 - PCV)[facility] HealthcareStart: 79-88-0502Anzlubazhlry Vaccine: 65+ Years (1 of 2 - PCV) Pneumococcal Vaccine: 65+ Years (1 of 2 - PCV)[facility] HealthcareStart: 1950 COVID-19 Vaccine (#1)COVID-19 Vaccine (#1)[facility] HealthcareStart: 90-46-1196Odth Cancer ScreeningSkin Cancer ScreeningNOSaint Louis University Health Science CenterBilirubin measurement [facility] Memorial HospitalBLOOD CULTURE 1BLOOD CULTURE 1 Lab Routine 01/31/2025 9:50 AM EDTNOMT HealthcareBLOOD CULTURE 2BLOOD CULTURE 2 Lab Routine 01/31/2025 9:56 AM EDTLAYTON HOSPITAL HealthcareBody weightOhiohealth Grady Memorial HospitalCalcium carbonate/Total in [facility] HospitalCalcium hydrogen phosphate dihydrate/Total in [facility] Calcium oxalate monohydrate/Total in [facility] Calcium phosphate levelOhiohealth Grady Memorial HospitalCalculus analysis with calculus photography [Interpretation] in [facility] Calculus analysis, qualitativeOhiohealth Grady Memorial HospitalCalculus analysis, quantitativeOhiohealth Grady Memorial HospitalCalculus analysis, quantitative, infrared spectroscopyOhiohealth Grady Memorial HospitalCellular material [Mass/mass] of Stone by [facility] Cholesterol [Mass/volume] in Serum or PlasmaOhiohealth Grady Memorial Hospital Cystine measurementOhiohealth Grady Memorial HospitalDetermination of calculus chemical compositionOhiohealth Grady Memorial HospitalEvaluation procedure [facility] HospitalHydroxyapatite [Energy Difference] in 24 hour UrineOhiohealth Grady Memorial HospitalLaboratory data interpretationOhiohealth Grady Memorial HospitalNewberyite/Total in [facility] HospitalPatient EducationKnow your MedOhioHealth [facility] Ctr Work Phone: Patient referralPomerene Hospital Ctr Work Phone: Specimen source subject [Type][facility] HospitalTriamterene measurementOhiohealth Grady Memorial HospitalTriple phosphate/Total in [facility] HospitalURINE CULTURE - [facility] URINE CULTURE - [facility] Lab Routine 02/04/2025 1:19 PM EDTNOMS Healthcare Immunizations Immunization DateImmunizationNotesCare ProviderFacilityNEGATED: Highlighted row has not occurred!74-66-3712kdhjqwycb virus vaccine, unspecified formulation Renato Synerchip [facility] Vincent Medical CenterGATED: Highlighted row has not occurred!83-94-6276XFLZ-CoV-2 mRNA (tozinameran 5y-11y) vaccineParVita [facility] ToledoED: Highlighted row has not occurred!18-40-5101gvkcyzprw virus vaccine, live, attenuated, for intranasal useBozuko [facility] ToledoED: Highlighted row has not occurred!92-62-0252vaozpamqa virus vaccine, live, attenuated, for intranasal useBozuko [facility] Payers DatePayer CategoryPayerPolicy [id number]-[id number] Health Insurance [id number] [id number] CONTINENTAL INS CO [employer] [id number] 2022-Present [address] [address] [place] [id number] 2002Medicare [id number] [id number] 2.16.840.5.642901.8[id number] 2.16.840.1.967996.3.57[id number] 2.16840.1.016354.3.579.2.41681-59-8624Vfzgjny6321015 2.16.840.1.717007.3.579.2.59056-36-4155Msqgqfy5832839 2.16.840.1.560186.3.579.2.03196-41-4361Npmqzce0165429 2.16.840.1.488419.3.579.2.05298-72-8584Uuewnrb4743512 2.16.840.1.824918.3.579.2.87190-31-2962Uqwpide8146947 2.16.840.1.736303.3.579.2.52672-04-6496Vefplwe9921446 2.16840.1.564043.3.579.2.96199-82-0925Vysjkxt1847458 2.16.840.1.401437.3.579.2.10991-69-1385Rpeuslf6075260 2.16840.1.477145.3.579.2.32566-44-9318Yiqpfww7363137 2.16.840.1.904090.3.579.2.54839-12-9205Jolsbfe7208435 2.16.840.1.216782.3.579.2.93484-49-9754Bwvkbrv7546332 2.16840.1.751253.3.579.2.73557-33-7893Hhpxizc84267415 2.16.840.1.506675.3.57[id number] 2.16840.1.741423.3.579.2.52868-21-1504Brmueaj74693618 2.16840.1.115756.3.579.2.47583-67-8242Swjnuqo13333851 2.16840.1.503518.3.579.2.138356-06-3229Wjutgkf82717514 2.16840.1.922660.3.579.2.807068-32-1105Ylaayha58787284 2.16840.1.945614.3.579.2.794635-51-6660Axicdkm21615743 2.16840.1.081464.3.579.2.095348-71-3187Sstylgu22851191 2.16840.1.845887.3.579.2.688851-51-0511Ktrtqgr84017858 2.16840.1.052869.3.579.2.401573-71-8286Xbhywak89326805 2.16840.1.272812.3.579.2.077627-38-9679Iwlewhd91913109 2.16840.1.999420.3.579.2.390464-33-2411Nffdbgy47556017 2..840.1.620206.3.579.2.695664-54-2571Jiftgsu1106154 2.16.840.1.417258.3.579.2.759599-02-9664Xvmylsx0006676 2.16.840.1.462603.3.579.2.772206-13-9483Vciegvt5658970 2.16.840.1.835255.3.579.2.5153Vhktuze58982150 2.16.840.1.439482.3.579.2.531 Nkhofjk95158045 2.16.840.1.958386.3.579.2.843Eknbcvf46932912 2.16.840.1.877452.3.579.2.741Ohypzji46813208 2.16.840.1.834041.3.579.2.531 Social History DateTypeDetailFacilitySex Assigned At [facility] [email or web address] Other Start: 02-03-2023 End: 24-97-5979Ogqytkz smoking statusEx-smoker (finding)[facility]: 91-86-4636Heuzibq smoking statusNever [facility]: 12-11-2022 End: 42-20-9590Sny Assigned At [facility] Hospitaltart: 20-67-3895Cpv Assigned At [facility] End: 37-02-2822Bflznzv of tobacco useCurrent smokerNOMS Healthcare End: 32-52-9711Gmdjukv of tobacco useCigarette SmokerNOMS HealthcareStart: 08-07-2023 End: 45-27-2850Oaosxtg use and exposureSmokeless tobacco non-userNOMS Healthcare Start: 08-07-2023 End: 26-80-0522Hlcrbow intakeEx-drinker (finding)[facility] HealthcareStart: 12-11-2022 End: 43-85-5088Vtlojlm of Social functionNOMS HealthcareWithin the last year, [...] money to buy more.Never trueNOMS HealthcareStart: 01-24-2023 Ikpcxzatn14SRQE HealthcareStart: 42-81-4457Urplhr identityIdentifies as female gender (finding)[facility] HealthcareDo you feel stress - tense, restless, nervous, or anxious, or unable to sleep at night because yourmind is troubled all the time - these days [OSQ]Not at allNOMS HealthcareSexFemale (finding)[facility] Goals DatePatient GoalDesired Activity/State Functional Status VehqTwkjkjaxmuUobkmbSuisdsol61-40-0804Xsnjovn Health Questionnaire 2 item (PHQ- 2) [Reported][facility] Children's HospitalEvigmbpofy09-34-7466Eqrzwgr Health Questionnaire 2 item (PHQ- 2) [Reported][facility] Children's HospitalZsahlittli88-74-5102Yqfnxrk Health Questionnaire 2 item (PHQ- 2) [Reported][facility] Children's HospitalPqyyjiojji38-66-0153Tptgbhiyqn StatusN/AExecutive Urology of St. Rita'S Hospital09-26-2024Total score [AUDIT-C]0 04/08/2024 6:36 PM EDT Mychart, GenericNOMS Ohtbzqtivo89-11-6002Jfc often do you have a drink containing alcohol?Never 04/08/2024 6:36 PM EDT Mychart, Generic NeverNOMS [id number] statusPatient does not drink 04/08/2024 6:36 PM EDT Mychart, Generic Patient does not drinkNOSaint Louis University Health Science CenterXhuvhobhrn91-87-4881Sia often do you have 6 or more drinks on 1 occasion?Never 04/08/2024 6:36 PM EDT Nato Castelan [id number] StatusN/AExec[facility] of [facility]01-31-2024Functional StatusN/AExec[facility] of [facility] Clinical Notes 02-21-2022 to 05-23-2025 Note Date & YuviVovsHakrjiqd71-84-1588 History of Present illness Narrative* Jayme Perez [...] fibrillation (HCC) Chronic problem, stable, asymptomatic. 6. [facility] current use of anticoagulant Chronic problem that [...] substitutions may have occurred. documented in this encounterSSM Health Cardinal [facility] Children's [id number] Telephone encounter Note* Telephone Encounter - October SAPPHIRE Harris - 02/08/2025 12:30 PM EDT Copied from VM from pt: Rafael, this is Jocelyn Sen, [id number]. I forgot to ask Dr. Persaud when I should start taking my warfare again and he's going to be off for a while, so I thought I'd better try and find out now. [phone], thank you. [facility] [id number] Telephone encounter Note* Telephone Encounter - Magalis Harris MA - 02/08/2025 12:29 PM EDT Copied from : The is the [facility] pharmacy calling concerning the prescriptions for Wilda Sen birthday [id number] have a prescription for Roberto F on [...] as well. Thank you so much by. [facility] [id number] History of Present illness Narrative* Jayme Perez MD - 02/08/2025 10:30 AM EDT Images from the original note were not included. Patient ID: Wilda Sen is a 79 y.o. female who presents for: Hospital Follow up kidney stones Flowsheet Row Patient Outreach from 02/08/2025 in [facility] with Klaudia Terrell LPN Hospital Information ED, [...] Discharged To: Home Setting Discharge Hospital [facility] Engagement Admission Date 02/04/25 Medications Discharge [...] transition of care note is reviewed. a tgjh-kg-jbbt evaluation is done today. Medical decision making is complex in degree. Please Note: Portions of this chart may have been created using voice recognition software. Occasionally a wrong-word or sound-like substitutions may have occurred due to inherent limitations of the voice recognition software. Please read the chart carefully and recognize, using context, where the substitutions may have occurred. documented in this encounterSSM Health Cardinal Glennon Children's [id number] History of Present illness Narrative* Jayme Perez [...] 10 tablet; Refill: 0 documented in this encounterSSM Health Cardinal Glennon Children's [id number] History of Present illness Narrative* Jayme Perez [...] Paroxysmal atrial fibrillation (HCC) - Protime-INR 3. FCI current use of anticoagulant - Protime-INR 4. Medication monitoring encounter - Protime-INR documented in this encounterSSM Health Cardinal Glennon Children's [id number] History of Present illness Narrative* Jayme Perez [...] INR in 2 weeks. 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 Hearing Screening: Not done Cognitive Screening Self Assessment: No concerns rasied by family members, friends, or caretakers Three Word Registration: River, Nation, Finger Clock Drawing: Normal Clock - 2 Three Word Recall: All 3 words correct - 3 Total Score (0-5 Points): 5 Pain Assessment Pain Score: 4 HISTORIES: PAST MEDICAL HISTORY: Past Medical History: Diagnosis Date Arthritis Basal cell carcinoma nose (2011), hoahaoism left (2014) Basal cell carcinoma (BCC) of multiple sites 2014 face Calculus of kidney Chronic kidney disease, stage 2 (mild) Depressive disorder (CMS/HCC) not elsewhere classified Diabetes (CMS/HCC) Diabetes mellitus (CMS/HCC) Diabetes mellitus without mention of complication, type II or unspecified type, not stated as uncontrolled Diarrhea, unspecified Diverticulitis of colon (without mention of hemorrhage)(562.11) Duodenitis Esophageal reflux 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 [...] asymptomatic and monitor longitudinally. documented in this [facility]04-22-2025 History of Present illness Narrative* Jayme Perez MD - 11/02/2024 11:33 AM EDT Reviewed microalbuminuria test Updated problem list. documented in this [facility]04-19-2025 Evaluation note* Diagnosis Type 2 diabetes mellitus with stage 3a chronic kidney disease, without long-term current use of insulin (HCC) (CMS/HCC) Stage 3a chronic kidney disease (HCC) (CMS/HCC) Microalbuminuria Proteinuria Paroxysmal atrial fibrillation (CMS/HCC) Atrial fibrillation FCI current use of anticoagulant Encounter for Medicare annual wellness exam Advance directive discussed with patient Encounter for screening for other disorder Screening for alcohol problem Screening for alcoholism Screening mammogram, encounter for documented in this encounter [facility] [id number] History of Present illness Narrative* Jayme Perez [...] long- term current use of insulin (HCC) ([facility]/HCC) Chronic problem, stable, to goal. As noted [...] 5MG Dispense: 90 tablet; Refill: 1 5. intermodal customer service current use of anticoagulant As above Chronic [...] of evaluation and management. documented in this encounterSSM Health Cardinal Glennon Children's [id number] Miscellaneous Notes* Telephone Encounter - October SAPPHIRE Harris - 02/08/2025 12:30 PM EDT Copied from from pt: Rafael, this is Jocelyn Sen, [phone]. I forgot to ask Dr. Persaud when I should start taking my warfare again and he's going to be off for a while, so I thought I'd better try and find out now. [phone], thank you. * Telephone Encounter - Magalis Harris MA - 02/08/2025 12:29 PM EDT Copied from : The is the [facility] pharmacy calling concerning the prescriptions for Wilad Sen birthday [id number] have a prescription for Roberto F on [...] you so much by. documented in this encounterSSM Health Cardinal [facility]on Children's [id number] Evaluation note* Diagnosis Type 2 diabetes mellitus with stage 3a chronic kidney disease, without long-term current use of insulin ([facility]) ([facility]) documented in this encounter [facility] [id number] History of Present illness Narrative* Felicia Thornton, - 08/04/2024 1:00 PM EST Images from the original note were not included. Assessment/Plan Diagnoses and all orders for this visit: Type 2 diabetes mellitus without complication, without long-term current use of insulin ([facility]) - Diabetes Mellitus without sign of diabetic [...] lid scrubs were recommended. documented in this encounterSSM Health Cardinal [facility]on Children's HospitalVzfzzlmthe38-72-1899 Evaluation note* Diagnosis Glaucoma suspect of both eyes- Primary Unspecified preglaucoma Type 2 diabetes mellitus with stage 3a chronic kidney disease, without long-term current use of insulin ([facility]) ([facility]) Dry eyes Unspecified tear film insufficiency Blepharitis of upper and lower eyelids of both eyes, unspecified type documented in this encounter [facility] [id number] Hospital Discharge instructions Patient Education 07/12/2024 11:44:44 [...] include: ?8 oz (237 mL) of milk, ubuakxj-tvdrsnsiujhp-mzkmk milk, and calcium- fortifiedfruit juice. Calcium-fortified means [...] ?Spinach (cooked), rhubarb, beets, sweet potatoes, and Solomon Islander chard. ?Peanuts. ?Potato chips, angolan fries, and baked potatoes with skin on. ?Nuts and nut products. ?Chocolate. If you regularly take a diuretic medicine, make sure to eat at least 1 or 2 servings of fruits or vegetables that are high in potassium each day. These include: ?Avocado. ?Banana. ?Hull, prune, carrot, or tomato juice. ?Baked potato. [...] magnesium, fish oil, or vitamin B6. Take soaf-bhd-gfryelj and prescription medicines only as told by [...] Casseroles. Pizza. Lasagna. Frozen meals. Potato chips. Tongan fries. The items listed above may not [...] provider. Document Revised: 10/10/2022 Document Reviewed: 10/10/2022 [employer] Patient Education 2023 [employer]ani. Follow Up Care 02/03/2023 12:01:32 With:MANUEL AGUIAR, Eugenia Venegas, URL Address: [address] [place], [place] [id number]- When: Unknown [facility] [id number] NotePatient Education Nephrology Dietary Guidelines to Help [...] ? 8 oz (237 mL) of milk, ywqgnam-hoavmxxusewx-itzez milk, and calcium- fortifiedfruit juice. Calcium-fortified means [...] Spinach (cooked), rhubarb, beets, sweet potatoes, and Solomon Islander chard. ? Peanuts. ? Potato chips, angolan fries, and baked potatoes with skin on. ? Nuts and nut products. ? Chocolate. ??? If you regularly take a diuretic medicine, make sure to eat at least 1 or 2 servings of fruits or vegetables that are high in potassium each day. These include: ? Avocado. ? Banana. ? Hull, prune, carrot, or tomato juice. ? Baked [...] fish oil, or vitamin B6. ??? Take exkl-bxw-wrfcapi and prescription medicines only as told by your health (more content not included)...[facility]12-19-2024 Telephone encounter Note* Telephone Encounter - [...] to recheck her INR after the holiday. [facility] [id number] Miscellaneous Notes* Telephone Encounter - Jayme Perez [...] in about 2 weeks. documented in this encounterSSM Health Cardinal Glennon Children's [id number] Telephone encounter Note* Telephone Encounter - Angeles Bonilla - 06/17/2024 9:11 AM EST Left voicemail to continue current dose and recheck in about 2 weeks [facility] [id number] Telephone encounter Note* Telephone Encounter - Jayme Perez MD - 06/17/2024 7:12 AM EST She is right on the border of the elevated. I would just continue the same dose and get rechecked it again in about 2 weeks. [facility] HospitalDkjqhezleu63-48-0520 History of Present illness Narrative* Jayme Perez [...] problem, stable, comanaged with Cardiology. Asymptomatic. 2. FCI current use of anticoagulant Chronic problem, stable, [...] I discussed with the patient or their field service representative, their fatigue issues. We discussed [...] 60 tablet; Refill: 0 documented in this encounterSSM Health Cardinal [facility]on Children's [id number] Hospital Discharge instructions Patient Education 10/14/2023 09:33:38 [...] include: ?8 oz (237 mL) of milk, xodotze-muvwwlauzuva-pgixc milk, and calcium- fortifiedfruit juice. Calcium-fortified means [...] ?Spinach (cooked), rhubarb, beets, sweet potatoes, and Solomon Islander chard. ?Peanuts. ?Potato chips, angolan fries, and baked potatoes with skin on. ?Nuts and nut products. ?Chocolate. If you regularly take a diuretic medicine, make sure to eat at least 1 or 2 servings of fruits or vegetables that are high in potassium each day. These include: ?Avocado. ?Banana. ?Hull, prune, carrot, or tomato juice. ?Baked potato. [...] magnesium, fish oil, or vitamin B6. Take gxgm-wne-aprtqvz and prescription medicines only as told by [...] Casseroles. Pizza. Lasagna. Frozen meals. Potato chips. Tongan fries. The items listed above may not [...] provider. Document Revised: 10/10/2022 Document Reviewed: 10/10/2022 [employer]et Patient Education 2022 [employer]ani. Follow Up Care 08/13/2023 10:19:44 With:MANUEL AGUIAR, Eugenia Venegas, URL Address: [address] [place] [address]- When: Unknown [facility] [id number] Hospital Discharge instructions Patient Education 08/13/2023 11:34:50 [...] including vitamins, herbs, eye drops, creams, and rszi-fmk-lqspizc medicines. Any problems you or family members [...] provider tells you to take them. ?Taking vtkh-qxj-dliuxci medicines, vitamins, herbs, and supplements. Eating and [...] provider. Document Revised: 11/06/2022 Document Reviewed: 03/04/2022 [employer] Patient Education 2022 [employer]ani. Follow Up Care 08/12/2023 14:37:00 With:ANGELITO AGUIAR, Renato Arzola, URL Address: [facility] [address], [place] [phone] When: Unknown Comments:sched ureteroscopyf/u w/ [facility] scheduled 10/14/23 [facility] 01-25-2024 History of Present illness [...] 0.55 - 1.02 mg/dL Final TBH EGFR-AF RUSSIAN 07/22/2023 >60 >=60 Final TBH EGFR-NON AF RUSSIAN 07/22/2023 55 (L) >=60 Final BUN CREATININE [...] treats. Stage 3a chronic kidney disease (HCC) ([facility]/HCC) New, Chronic problem, unstable, progressing, defining the [...] cardiovascular disease. 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 documented in this encounterSSM Health Cardinal [facility]on Children's [id number] Evaluation note* Encounter Date Diagnosis Assessment Notes [...] care as directed rx of steroid and [place], cool mist humidification. May use Tylenol as directed. Immediateeval for signs of respiratory distress, difficulty breathing poor PO intake, signs of dehydration, fever, or other concerning symptoms. Otherwise, follow up with PCP in 2-3 days. Patient verbalizes understanding and is agreeable to treatment plan. Patient sent home in stable condition. [employer] Other 08-11-2022 NotePROCEDURE: XR FOOT LT MIN 3 VIEWS COMPARISON: None. HISTORY: Pain in left foot FINDINGS: BONES:No acute fracture or dislocation. Mild enthesopathic spurring of the calcaneus. SOFT TISSUES:Negative. No visible soft tissue swelling. EFFUSION:None visible. OTHER: Negative. IMPRESSION: Mild enthesopathic spurring of the calcaneus Electronically authenticated by: BLANCA ZAVALA Date: 2022-02-21 07:28[facility] Future Appointments Appointment Date:07/12/2024 10:45:00 AM Scheduled Provider:E[facility]ACKSON [facility] Visit [facility] Evaluation + Plan note Future Appointments Appointment Date:07/12/2024 10:45:00 AM Scheduled Provider:Eugenia JACKSON MD [facility] Type:[facility]O Office Visit Diagnostic Tests Pending * Calculi Analysis [facility] Future Appointments Appointment Date:10/14/2023 09:15:00 AM Scheduled Provider:Eugenia JACKSON MD [facility]O Office Visit Appointment Date:07/12/2024 10:45:00 AM Scheduled Provider:Eugenia JACKSON MD Location:[facility] Appointment Type:URO Office Visit [facility] Evaluppcmm noteNort [email or web address] Other evalukrupc noteNo assessment information available [facility] Work Phone: evaluation note* Diagnosis Chronic diastolic heart failure (CMS/HCC)- Primary Chronic diastolic heart failure Paroxysmal atrial fibrillation (CMS/HCC) Atrial fibrillation Type 2 diabetes mellitus with stage 3a chronic kidney disease, without long-term current use of insulin (HCC) (CMS/HCC) Stage 3a chronic kidney disease (HCC) (CMS/HCC) Microalbuminuria Proteinuria Former smoker Personal history of tobacco use, presenting hazards to health 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, 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 Psoriatic arthropathy ([facility]/HCC) Psoriatic arthropathy Gastroesophageal reflux disease without esophagitis Esophageal reflux documented in this encounter [facility]Evaluation [facility]* Diagnosis Paroxysmal atrial fibrillation (CMS/HCC)- Primary Atrial fibrillation FCI current use of anticoagulant Type 2 diabetes mellitus with stage 3a chronic kidney disease, without long-term current use of insulin (HCC) ([facility]/HCC) Stage 3a chronic kidney disease (HCC) ([facility]/HCC) Microalbuminuria Proteinuria Unexplained weight loss Loss of weight Chronic fatigue Other malaise and fatigue Sleep arousal disorder documented in this encounter [facility]Evaluation [facility]* Diagnosis Type 2 diabetes mellitus with stage 3a chronic kidney disease, without long-term current use of insulin (HCC) ([facility]) documented in this encounter [facility]Evaluation [facility]* Diagnosis Paroxysmal atrial fibrillation ([facility]) Atrial fibrillation documented in this encounter [facility]* Diagnosis Type 2 diabetes mellitus with diabetic microalbuminuria, without long-term current use of insulin ([facility]/HCC)- Primary Encounter for Medicare annual wellness [...] of iron metabolism Chronic diastolic heart failure ([facility]/HCC) Chronic diastolic heart failure Paroxysmal atrial fibrillation ([facility]/HCC) Atrial fibrillation Stage 3a chronic kidney disease (HCC) ([facility]) Age-related osteoporosis without current pathological fracture ([facility]/HCC) Psoriatic arthropathy ([facility]/HCC) Psoriatic arthropathy Type 2 diabetes mellitus with stage 3a chronic kidney disease, without long-term current use of insulin (HCC) ([facility]) Type 2 diabetes mellitus with diabetic microalbuminuria, without long-term current use of insulin ([facility]) Immunosuppressed status ([facility]) documented in this encounter [facility]* Diagnosis Vertigo- Primary Dizziness and giddiness documented in this encounter [facility]* Diagnosis Vertigo- Primary Dizziness and giddiness documented in this encounter [facility]* Diagnosis Vertigo- Primary Dizziness and giddiness documented in this encounter [facility]* Diagnosis Vertigo- Primary Dizziness and giddiness Paroxysmal atrial fibrillation (HCC) Atrial fibrillation FCI current use of anticoagulant Medication monitoring encounter Encounter for therapeutic drug monitoring documented in this encounter [facility] HealthcareEvaluation note* Diagnosis Vertigo- Primary Dizziness and giddiness documented in this encounter [facility] HealthcareEvaluation note* Diagnosis Vertigo- Primary Dizziness and giddiness documented in this encounter [facility] HealthcareEvaluation note* Diagnosis Kidney stone on left side documented in this encounter [facility] HealthcareEvaluation note* Diagnosis Kidney stone on left side- Primary Hospital discharge follow-up Other follow-up examination documented in this encounter [facility] HealthcareEvaluation note* Diagnosis Type 2 diabetes mellitus with diabetic microalbuminuria, 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, without long-term current use of insulin (HCC) Stage 3a chronic kidney disease (CMS-HCC) Microalbuminuria Proteinuria Paroxysmal atrial fibrillation (HCC) Atrial 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 Hospital Discharge instructions No data available for this section [facility] Hospital Discharge instructions Additional Instructions DISCHARGE [...] X- Ray) in about six months. [ ][facility] Work Phone: Progress note No data available for this section [facility] Reason for referral (narrative)No reason for referral information availablePomerene Hospital Ctr Work Phone: Reason for visit Narrative* Rehabilitation - Outpatient (Routine) - AuthorizedSpecialtyDiagnoses / ProceduresReferred By ContactReferred To ContactPhysical Therapy Diagnoses Vertigo Procedures [place] OFFICE/OUTPATIENT [facility] 60 MINUTES Jayme Perez MD [address] [place] [address] Phone: tel: fax: Joselyn Narvaez, PT Referral IDStatusReasonStart DateExpiration DateVisits RequestedVisits [id number] Specialty Services Required [facility] HealthcareReason for visit Narrative* Rehabilitation - Outpatient (Routine) - AuthorizedSpecialtyDiagnoses / ProceduresReferred By ContactReferred To ContactPhysical Therapy Diagnoses Vertigo Procedures [place] OFFICE/OUTPATIENT [facility] 60 MINUTES Jayme Perez MD [address] [place] [address] [address] [place] [address] Phone: tel: fax:[phone] Joselyn Narvaez, PT Referral IDStatusReasonStart DateExpiration DateVisits RequestedVisits [id number] Specialty Services Required [facility] Summary Purpose [...] and content) DATE CREATED AUTHOR 12/20/2022 [facility] DATE CREATED AUTHOR AUTHOR'S ORGANIZ ATION 02/24/2025 [facility] DATE CREATED AUTHOR AUTHOR'S ORGANIZ ATION 02/26/2025 [facility] DATE CREATED AUTHOR AUTHOR'S ORGANIZ ATION 05/24/2025 [facility] EPIC Patient Care team informatio n (unrecognized section and content) Team Status: Active Member Role Status Dates Jayme Perez MD Primary Care Provider Active Team Status: Inactive Member Role Status Dates Jayme Perez MD Primary Care Provider Active Eugenia Jackson MDAttending ProviderActiveTeam MemberRelationshipSpecialtyStart DateEnd Date Jayme Perez MD [address] [phone] (Fax) [facility] - [facility] Jayme Perez MD [address] [place] [address] (Fax) PCP - [facility]12/05/22Team MemberRelationshipSpecialtyStart DateEnd Date Jayme Perez MD [address] [phone] (Fax) PCP - [facility]11/25/22 Jayme Perez MD [address] [place] [address] (Fax) [facility]22 Team Status: Inactive Member Role Status Dates Jayme Perez MD Primary Care Provider Active Start: March 31, 2024 End: March 31, 2024MattAlia Owusu ProviderActiveStart: March 31, 2024 End: March 31, 2024Team MemberRelationshipSpecialtyStart DateEnd Date Jayme Perez MD [address] [phone] (Fax) PCP - [facility]11/25/22 Jayme Perez MD [address] [place] [address] (Fax) PCP - [facility]CO [facility]12/05/22 Felicia Thornton DO [address] [place] [address] [place] [address] Referring PhysicianOphthalmology08/21/23 Renato Eaton MD [address] [phone] Referring PhysicianUrolog08/21/23 Radames Monteiro MD [address] [facility] Professional building [address] [place] [phone] Referring PhysicianRheumatolog08/21/23Team MemberRelationshipSpecialtyStart Date End Date Jayme Perez MD [address] [place] [address] (Fax) PCP - GeneralFamily Medicine11/25/22 Jayme Perez MD [address] [place] [address] (Fax) PCP - [facility]12/05/22 Felicia Thornton DO [address] [place] [address] Ave [address] [place] [address] Referring PhysicianOphthalmology08/21/23 Renato Eaton MD [address] [phone] Referring PhysicianUrolog08/21/23 Radames Monteiro MD [address] [facility] Professional building [address] [place] [phone] Referring PhysicianRheumatolog08/21/23Team MemberRelationshipSpecialtyStart Date End Date Jayme Perez MD [address] [place] [address] (Fax) PCP - GeneralFamily Medicine11/25/22 Jayme Perez MD [address] [place] [address] (Fax) PCP - [facility]12/05/22 Felicia Thornton DO [address] [place] [address] Referring PhysicianOphthalmology08/21/23 Renato Eaton MD [address] [phone] Referring PhysicianUrolog08/21/23 Radames Monteiro MD [address] [facility] Professional building [address] [place] [address] [phone] Referring PhysicianRheumatolog08/21/23Team MemberRelationshipSpecialtyStart Date End Date Jayme Perez MD [address] [place] [address] (Fax) PCP - GeneralFamily Medicine11/25/22 Jayme Perez MD [address] [place] [address] (Fax) PCP - ACO Reach12/05/22 Felicia Thornton DO [address] [place] [address] Referring PhysicianOphthalmology08/21/23 Renato Eaton MD [address] [phone] Referring PhysicianUrology2 Radames Monteiro MD [address] [facility] Professional building [address] [place] [phone] Referring PhysicianRheumatolog08/21/23Team MemberRelationshipSpecialtyStart Date End Date Jayme Perez MD [address] [place] [address] (Fax) PCP - GeneralFamily Medicine11/25/22 Jayme Perez MD [address] [place] [address] (Fax) PCP - ACO Reach12/05/22 Felicia Thornton DO [address] [place] [address] Referring PhysicianOphthalmology08/21/23 Renato Etaon MD [address] [phone] Referring PhysicianUrolog08/21/23 Radames Monteiro MD [address] [facility] Professional building [address] [place] [address] [phone] Referring PhysicianRheumatolog08/21/23Team MemberRelationshipSpecialtyStart Date End Date Jayme Perez MD [address] [place] [address] (Fax) PCP - GeneralFamily Medicine11/25/22 Jayme Perez MD [address] [place] [address] (Fax) PCP - ACO Reach12/05/22 Felicia Thornton DO [address] [place] [address] Referring PhysicianOphthalmology08/21/23 Renato Eaton MD [address] [place] [address] Referring PhysicianUrolog08/21/23 Radames Monteiro MD [address] [facility] Professional [address] [phone] Referring PhysicianRheumatolog08/21/23Team MemberRelationshipSpecialtyStart Date End Date Jayme Perez MD [address] [place] [address] (Fax) PCP - GeneralFamily Medicine11/25/22 Jayme Perez MD [address] [place] [address] (Fax) PCP - ACO Reach12/05/22 Felicia Thornton DO [address] [place] [address] Referring PhysicianOphthalmology08/21/23 Renato Eaton MD [address] [place] [address] Referring PhysicianUrology2 Radames Monteiro MD [address] [facility] Professional building 1 [place] [address] Referring PhysicianRheumatolog08/21/23Team MemberRelationshipSpecialtyStart Date End Date Jayme Perez MD [address] [place] [address] (Fax) [facility]11/25/22 Jayme Perez MD [address] [place] [address] (Fax) PCP - ACO Reach12/05/22 Felicia Thornton DO [address] [place] [address] Referring PhysicianOphthalmology08/21/23 Renato Eaton MD [address] [phone] Referring PhysicianUrolog08/21/23 Radames Monteiro MD [address] [facility] Professional building 1 [place] [phone] Referring PhysicianRheumatology2Team MemberRelationshipSpecialtyStart Date End Date Jayme Perez MD [address] [place] [address] (Fax) [facility] - [facility] Medicine11/25/22 Jayme Perez MD [address] [place] [address] (Fax) PCP - ACO Reach12/05/22 Felicia Thornton DO [address] [place] [address] Referring PhysicianOphthalmology08/21/23 Renato Eaton MD [address] [place] [address] Referring PhysicianUrolog08/21/23 Radames Monteiro MD [address] Professional building 1 [place] [address] Referring PhysicianRheumatolog08/21/23Team MemberRelationshipSpecialtyStart Date End Date Jayme Perez MD [address] [place] [address] (Fax) PCP - Generalmily [facility]11/25/22 Jayme Perez MD [address] [place] [address] (Fax) PCP - ACO [facility]12/05/22 Felicia Thornton DO [address] [place] [address] Referring PhysicianOphthalmology08/21/23 Renato Eaton MD [address] [place] [address] Referring PhysicianUrolog08/21/23 Radames Monteiro MD [address] Professional building 1 [place] [address] Referring PhysicianRheumatology2Team MemberRelationshipSpecialtyStart Date End Date Jayme Perez MD [address] [address] (Fax) PCP - GeneralFamily Medicine11/25/22 Jayme Perez MD [address] [address] (Fax) PCP - ACO Reach12/05/22 Felicia Thornton DO [address] [place] [address] Referring PhysicianOphthalmology08/21/23 Renato Eaton MD [address] [place], [place] [phone] Referring PhysicianUrolog08/21/23 Radames Monteiro MD [address] [facility] Professional building [address] [place] [phone] Referring PhysicianRheumatology2Team MemberRelationshipSpecialtyStart Date End Date Jayme Perez MD [address] [address] (Fax) PCP - Generalmily Medicine11/25/22 Jayme Perez MD [address] [address] (Fax) PCP - ACO Reach12/05/22 Felicia Thornton DO [address] [place] [address] Referring PhysicianOphthalmology08/21/23 Renato Eaton MD 290 [place] [address] Referring PhysicianUrolog08/21/23 Radames Monteiro MD [address] Professional building [address] [place] [address] Referring PhysicianRheumatology2Team MemberRelationshipSpecialtyStart Date End Date Jayme Perez MD [address] [address] (Fax) PCP - GeneralFamily Medicine11/25/22 Jayme Perez MD 112 [facility] 100 [place] [address] (Fax) PCP - ACO Reach12/05/22 Felicia Thornton DO [address] [place], [place] [address] [place] [address] Referring PhysicianOphthalmology08/21/23 Renato Eaton MD [address] [place] [address] Referring PhysicianUrology2 Radames Monteiro MD [address] [facility] 1 [place] [phone] Referring PhysicianRheumatology2Team MemberRelationshipSpecialtyStart Date End Date Jayme Perez MD [address] [place] [address] 100 [place] [address] (Fax) PCP - GeneralFamily Medicine11/25/22 Jayme Perez MD [address] [address] (Fax) PCP - ACO Reach12/05/22 Felicia Thornton DO [address] [place] [address] Referring PhysicianOphthalmology08/21/23 Renato Eaton MD [address] [place] [phone] Referring PhysicianUrolog08/21/23 Radames Monteiro MD [address] [facility] Professional building [address] [place] [phone] Referring PhysicianRheumatolog08/21/23Team MemberRelationshipSpecialtyStart Date End Date Jayme Perez MD [address] [address] (Fax) PCP - GeneralFamily Medicine11/25/22 Jayme Perez MD [address] [address] (Fax) PCP - ACO Reach12/05/22 Felicia Thornton DO [address] [place] [address] Referring PhysicianOphthalmology08/21/23 Renato Eaton MD [address] [place] [address] Referring PhysicianUrology2 Radames Monteiro MD [address] [facility] Professional building 1 [place] [address] Referring PhysicianRheumatology2Team MemberRelationshipSpecialtyStart Date End Date Jayme Perez MD 112 [facility] 100 [place] [address] (Fax) PCP - GeneralFamily Medicine11/25/22 Jayme Perez MD [address] [address] (Fax) PCP - ACO Reach12/05/22 Felicia Thornton DO [address] [place] [address] Ave [address] [place] [address] Referring PhysicianOphthalmology08/21/23 Renato Eaton MD [address] [place] [address] Referring PhysicianUrology2 Radames Monteiro MD [address] [facility] Professional building [address] [place] [phone] Referring PhysicianRheumatology2Team MemberRelationshipSpecialtyStart Date End Date Jayme Perez MD [address] [address] (Fax) PCP - GeneralFamily Medicine11/25/22 Jayme Perez MD [address] [address] (Fax) PCP - ACO Reach12/05/22 Felicia Thornton DO [address] [place] [address] Referring PhysicianOphthalmology08/21/23 Renato Eaton MD [address] [place] [address] Referring PhysicianUrolog08/21/23 Radames Monteiro MD [address] Professional building [address] [place] [address] Referring PhysicianRheumatolog08/21/23Team MemberRelationshipSpecialtyStart Date End Date Jayme Perez MD 112 [facility] [address] [place] [address] (Fax) PCP - GeneralFamily Medicine11/25/22 Jayme Perez MD 112 [facility] 100 [place] [address] (Fax) PCP - ACO Reach12/05/22 Felicia Thornton DO [address] [place] [address] Referring PhysicianOphthalmology08/21/23 Renato Eaton MD [address] [place] [address] Referring PhysicianUrolog08/21/23 Radames Monteiro MD [address] Professional building [address] [place] [address] Referring PhysicianRheumatology2Team MemberRelationshipSpecialtyStart Date End Date Jayme Perez MD [address] [place] [address] (Fax) PCP - GeneralFamily Medicine11/25/22 Jayme Perez MD [address] [place] [address] (Fax) PCP - ACO Reach12/05/22 Felicia Thornton DO [address] [place] [address] Referring PhysicianOphthalmology2 Renato Eaton MD [address] [place], [place] [address] Referring PhysicianUrolog08/21/23 Radames Monteiro MD [address] [facility] Professional building [address] [place] [phone] Referring PhysicianRheumatology2Team MemberRelationshipSpecialtyStart Date End Date Jayme Perez MD [address] [place] [address] (Fax) PCP - GeneralFamily Medicine11/25/22 Jayme Perez MD [address] [place] [address] (Fax) PCP - ACO Reach12/05/22 Felicia Thornton DO [address] [place] [address] Referring PhysicianOphthalmology08/21/23 Renato Eaton MD [address] [phone] Referring PhysicianUrology2 Radames Monteiro MD [address] [employer] Professional building [address] [place] [address] Referring PhysicianRheumatolog08/21/23Team MemberRelationshipSpecialtyStart Date End Date Jayme Peerz MD [address] [place] [address] (Fax) PCP - GeneralFamily Medicine11/25/22 Jayme Perez MD 112 [facility] 100 [place] [address] (Fax) PCP - ACO Reach12/05/22 Felicia Thornton DO [address] [place] [address] Referring PhysicianOphthalmology08/21/23 Renato Eaton MD 290 [place] [address] Referring PhysicianUrolog08/21/23 Radames Monteiro MD [address] [facility] Professional building 1 [place] [phone] Referring PhysicianRheumatolog08/21/23Team MemberRelationshipSpecialtyStart Date End Date Jayme Perez MD [address] [place] [address] (Fax) PCP - GeneralFamily Medicine11/25/22 Jayme Perez MD [address] [place] [address] (Fax) PCP - ACO Reach12/05/22 Felicia Thornton DO [address] [place] [address] Referring PhysicianOphthalmology08/21/23 Renato Eaton MD [address] [place] [address] Referring PhysicianUrolog08/21/23 Radames Monteiro MD [address] [facility] Professional building [address] [place] [phone] Referring PhysicianRheumatolog08/21/23Team MemberRelationshipSpecialtyStart Date End Date Jayme Perez MD [address] [facility] 100 [place] [address] (Fax) PCP - GeneralFamily Medicine11/25/22 Jayme Perez MD [address] [place] [address] (Fax) PCP - ACO Reach12/05/22 Felicia Thornton DO [address] [place] [address] Referring PhysicianOphthalmology08/21/23 Renato Eaton MD [address] [place] [address] Referring PhysicianUrolog08/21/23 Radames Monteiro MD [address] [facility] Professional building 1 [place] [phone] Referring PhysicianRheumatolog08/21/23Team MemberRelationshipSpecialtyStart Date End Date Jayme Perez MD [address] [place] [address] (Fax) PCP - Generalmily Medicine11/25/22 Jayme Perez MD [address] [place] [address] (Fax) PCP - ACO [facility]12/05/22 Felicia Thornton DO [address] [place] [address] Referring PhysicianOphthalmology08/21/23 Renato Eaton MD [address] [place] [address] Referring PhysicianUrology2 Radames Monteiro MD [address] [facility] Professional building [address] [place] [address] [phone] Referring PhysicianRheumatolog08/21/23 Team Status: Inactive Member Role Status Dates Lobito Tapia DO Attending Provider Active S tart: February 04, 2025 End: February 04, 2025Team MemberRelationshipSpecialtyStart DateEnd Date Jayme Perez MD [address] [place] [address] (Fax) PCP - GeneralFamily Medicine11/25/22 Jayme Perez MD [address] [place] [address] (Fax) PCP - ACO Reach12/05/22 Felicia Thornton DO [address] [place] [address] Referring PhysicianOphthalmology08/21/23 Renato Eaton MD [address] [place] [address] Referring PhysicianUrolog08/21/23 Radames Monteiro MD [address] [facility] Professional building [address] [place] [phone] Referring PhysicianRheumatolog08/21/23 Team Status: Inactive Member Role [...] MemberRelationshipSpecialtyStart DateEnd Date Jayme Perez MD [address] [place] [address] (Fax) PCP - GeneralFamily Medicine11/25/22 Jayme Perez MD [address] [place] [address] PCP - ACO Reach12/05/22 Felicia Thornton DO [address] [place] [address] Referring PhysicianOphthalmology08/21/23 Renato Eaton MD [address] [place] [phone] Referring PhysicianUrolog08/21/23 Radames Monteiro MD [address] Professional building [address] [place] [address] Referring PhysicianRheumatolog08/21/23Team MemberRelationshipSpecialtyStart Date End Date Jayme Perez MD [address] [place] [address] (Fax) PCP - GeneralFamily Medicine11/25/22 Jayme Perez MD [address] [place] [address] (Fax) PCP - ACO Reach12/05/22 Felicia Thornton DO [address] [place] [address] Referring PhysicianOphthalmology08/21/23 Renato Eaton MD [address] [place] [phone] Referring PhysicianUrolog08/21/23 Radames Monteiro MD [address] Professional building [address] [place] [address] Referring PhysicianRheumatology2 Rebeca Emerson, DITCHER [address] [place] [address] Social Workermily Medicine03/04/25Team MemberRelationshipSpecialtyStart DateEnd Jayme Perez MD [address] [place] [address] (Fax) PCP - GeneralFamily Medicine11/25/22 Jayme Perez MD [address] [place] [address] (Fax) PCP - ACO Reach12/05/22 Felicia Thornton DO [address] [place], [place] [address] [place] [address] Referring PhysicianOphthalmology2 Renato Eaton MD [address] [place] [address] Referring PhysicianUrolog08/21/23 Radames Monteiro MD [address] [facility] Professional building [address] [place] [phone] Referring PhysicianRheumatology2 Rebeca Emerson, DINA [address] [place] [address] Social WorkerCorrigan Mental Health Center MedicineTeam MemberRelationshipSpecialtyStart DateEnd Date Jayme Perez MD [address] [place] [address] (Fax) PCP - GeneralFamily Medicine11/25/22 Jayme Perez MD [address] [place] [address] (Fax) PCP - ACO Reach12/05/22 Felicia Thornton DO [address] [place] [address] Referring PhysicianOphthalmology08/21/23 Renato Eaton MD [address] [place] [address] Referring PhysicianUrolog08/21/23 Radames Monteiro MD [address] [facility] Professional building [address] [place] [phone] Referring PhysicianRheumatolog08/21/23 Rebeca Emerson, DITCHER [address] [place] [address] Social WorkerCorrigan Mental Health Center MedicineTeam MemberRelationshipSpecialtyStart DateEnd Date Jayme Perez MD [address] [place] [address] (Fax) PCP - GeneralFamily Medicine11/25/22 Jayme Perez MD [address] [place] [address] (Fax) PCP - ACO Reach12/05/22 Felicia Thornton, [address] [place] [address] Referring PhysicianOphthalmology08/21/23 Renato Eaton MD [address] [place] [phone] Referring PhysicianUrolog08/21/23 Radames Monteiro MD [address] [facility] [address] [place] [phone] Referring PhysicianRheumatolog08/21/23Team MemberRelationshipSpecialtyStart Date End Date Jayme Perez MD [address] [place] [address] (Fax) PCP - Generalmily Medicine11/25/22 Jayme Perez MD [address] [place] [address] (Fax) PCP - ACO [facility]12/05/22 Felicia Thornton DO [facility] [address] [place] [address] Referring PhysicianOphthalmology08/21/23 Renato Eaton MD [address] [phone] Referring PhysicianUrolog08/21/23 Radames Monteiro MD [address] [facility] [address] [place] [phone] Referring PhysicianRheumatolog08/21/23Team MemberRelationshipSpecialtyStart Date End Date Jayme Perez MD [address] [place] [address] (Fax) PCP - GeneralFamily Medicine11/25/22 Jayme Perez MD [address] [place] [address] PCP - ACO Reach12/05/22 Felicia Thornton DO [address] [place] [address] Referring PhysicianOphthalmology08/21/23 Renato Eaton MD [address] [place] [address] Referring PhysicianUrolog08/21/23 Radames Monteiro MD [address] [facility] Professional building [address] [place] [phone] Referring PhysicianRheumatolog08/21/23 Goals (unrecognized section and [...] BE BASED ON THE PRIMARY CLINICAL RECORDS. [facility] [employer] [facility]. provides no warranty or guarantee of the accuracy or completeness of information in this document.
[2025-06-21 11:33] LABS: INR 2.51; Prothrombin Time 24.8 sec (9.0-11.6)
== END 2025-06-21 10:53 | disposition home or self-care (01) ==
LOC: LAB 10:56
PROVIDERS: PCP Family Medicine; Visit Provider Family Medicine
DX: I48.0 Paroxysmal atrial fibrillation (principal); Z79.01 Long term (current) use of anticoagulants; Z51.81 Encounter for therapeutic drug level monitoring
CPT/HCPCS: 36415; 85610